=== PATIENT | male | born 1960 | race Hispanic/Latino ===

== ENCOUNTER 2017-09-26 17:08 | Emergency (ER) | payer OTHER ==
[2017-09-26] MEDS ORDERED: LIDOCAINE 1% W/EPI 1:100,000 MDV 50 ML VIAL ONE (18:08)
--- NOTE | 2017-09-26 19:22 | ER ---
Nurse's Notes [facility] Name: Dayton Grijalva Age: 56 yrs Sex: Male : 1960 Arrival Date: 09/26/2017 Time: 17:09 Bed 23 Private MD: Tito Duval E; Kovacev, Ted Diagnosis: Cutaneous abscess of right lower limb;Type 2 diabetes mellitus Presentation: 09/26 17:26 Presenting complaint: Patient states: Abscess on right thigh x 3 days. Transition of hb care: patient was not received from another setting of care. Onset of symptoms was September 26, 2017. Risk Assessment: Do you want to hurt yourself or someone else? Patient reports no desire to harm self or others. Initial Sepsis Screen: Does the patient meet any 2 criteria? No. Patient's initial sepsis screen is negative. Does the patient have a suspected source of infection? No. Patient's initial sepsis screen is negative. Care prior to arrival: None. 17:26 Method Of Arrival: Ambulatory hb 17:26 Acuity: SAMARA 4 hb Historical: - Allergies: 17:27 No Known Allergies; hb - Immunization history:: Adult Immunizations up to date. - Social history:: Smoking status: Patient/guardian denies using tobacco. - Ebola Screening: : No symptoms or risks identified at this time. - Family history:: not pertinent. Screenin:09 Abuse screen: Denies threats or abuse. Denies injuries from another. Nutritional kr2 screening: No deficits noted. Tuberculosis screening: No symptoms or risk factors identified. Fall Risk None identified. Assessment: 18:06 General: Appears in no apparent distress. comfortable, well groomed, well developed, kr2 well nourished, Behavior is calm, cooperative, appropriate for age. Pain: Complains of pain in right quadriceps Pain currently is 6 out of 10 on a pain scale. Quality of pain is described as aching, tender, Is continuous. Neuro: Level of Consciousness is awake, alert, obeys commands, Oriented to person, place, time, situation, Appropriate for age. Cardiovascular: Capillary refill < 3 seconds in bilateral Patient's skin is warm and dry. Respiratory: Airway is patent Respiratory effort is even, unlabored, Respiratory pattern is regular, symmetrical. GI: Patient currently denies nausea, vomiting. EENT: Oral mucosa is moist. Derm: Skin is intact, is healthy with good turgor, Skin is pink, warm \T\ dry. Abscess located on right quadriceps is half dollar sized, has purulent drainage, is red, is raised. Musculoskeletal: Circulation, motion, and sensation intact. 19:16 Reassessment: Patient appears in no apparent distress at this time. Patient and/or kr2 family updated on plan of care and expected duration. Pain level reassessed. Patient is alert, oriented x 3, equal unlabored respirations, skin warm/dry/pink. 20:00 Reassessment: Patient appears in no apparent distress at this time. Patient and/or kr2 family updated on plan of care and expected duration. Pain level reassessed. Patient is alert, oriented x 3, equal unlabored respirations, skin warm/dry/pink. Bactroban ointment applied to wound, covered with ABD pad and secured with tape. Patient tolerated well, family verbalizes understanding of care and to follow up with physician tomorrow Patient states feeling better. Vital Signs: 17:26 BP 148 / 90; Pulse 76; Resp 16; Temp 98.7; Pulse Ox 100% on R/A; Pain 6/10; hb 20:00 BP 148 / 88; Pulse 75; Resp 18; Pulse Ox 100% on R/A; kr2 ED Course: 13:40 Assist provider with I \T\ D: of an abscess on right upper thigh Set up I\T\D tray. kr 2 Performed by Dario Clinton MD Culture sent to lab. Wound packed. iodoform gauze, Dressing with bactroban, ABD pad and tape Patient tolerated well. 17:09 Patient arrived in ED. as 17:09 Tito Duval MD is Private Physician. as 17:09 Yfn Mandujano MD is Private Physician. as 17:26 Triage completed. hb 17:27 Arm band placed on left wrist. hb 17:32 Dario Clinton MD is Attending Physician. mary 17:35 Wound culture swab sent to lab. jp3 17:54 Nichole Molina, SUNITA is Primary Nurse. kr2 18:09 Patient has correct armband on for positive identification. Bed in low position. Call kr2 light in reach. Side rails up X 1. Adult w/ patient. Pulse ox on. NIBP on. 19:20 Yfn Mandujano MD is Referral Physician. mary 19:49 Wound Culture Sent. jp3 20:00 Patient did not have IV access during this emergency room visit. kr2 Administered Medications: 19:40 Drug: Lidocaine-Epinephrine -1%: (1:100,000) 20 ml {Note: Administered by Dr. estefani Clinton.} Volume: 20 ml; Route: Infiltration; 20:00 Follow up: Response: No adverse reaction kr2 19:58 Drug: Bactrim (160 mg-800 mg (DS) 1 tablet Route: PO; kr2 20:30 Follow up: Response: Medication administered at discharge. kr2 20:00 Drug: Doxycycline 200 mg Route: PO; kr2 20:31 Follow up: Response: Medication administered at discharge. kr2 20:00 Drug: Bactroban Ointment 2 % 1 application Route: Topical; Site: wound; kr2 20:00 Follow up: Response: Medication administered at discharge. kr2 Point of Care Testing: Blood Glucose: 17:58 Blood Glucose: 169 mg/dL; jp3 Ranges: Outcome: 19:21 Discharge ordered by . [facility] 20:08 Patient left the ED. kr2 20:28 Discharged to home ambulatory, with family. kr2 20:28 Condition: good 20:28 Discharge instructions given to patient, family, Instructed on discharge instructions, follow up and referral plans. medication usage, Demonstrated understanding of instructions, follow-up care, medications, Prescriptions given X 3. Signatures: Dario Clinton MD MD cha Martinez, Amelia as Baxter, Heather, RN RN Nichole Molina RN RN kr2 Daryl Reyez jp3 Corrections: (The following items were deleted from the chart) 18:16 18:06 Derm: Skin is intact, is healthy with good turgor, Skin is pink, warm \T\ dry. kr2 kr2
--- NOTE | 2017-09-26 19:22 | EDPHYS ---
Physician Documentation [facility] Name: Dayton Grijalva Age: 56 yrs Sex: Male : 1960 Arrival Date: 09/26/2017 Time: 17:09 Bed 23 Private MD: Tito Duval E; Kovacev, Ted ED Physician Dario Clinton HPI: 09/26 19:17 This 56 yrs old Male presents to ER via Ambulatory with complaints of Cyst. mary 19:17 The patient presents with an abscess, moderate-sized, an injury, pain, that is acute. mary The complaints affect the right quadriceps. Context: The problem was sustained at home. Onset: The symptoms/episode began/occurred 5 day(s) ago. Modifying factors: The symptoms are alleviated by nothing. the symptoms are aggravated by bending knee. Associated signs and symptoms: The patient has no apparent associated signs or symptoms. Treatment prior to arrival includes: no previous treatment. Severity of symptoms: At their worst the symptoms were mild, in the emergency department the symptoms are unchanged. The patient has experienced similar episodes in the past, a few times. Historical: - Allergies: 17:27 No Known Allergies; hb - Immunization history:: Adult Immunizations up to date. - Social history:: Smoking status: Patient/guardian denies using tobacco. - Ebola Screening: : No symptoms or risks identified at this time. - Family history:: not pertinent. ROS: 19:17 Constitutional: Negative for fever, chills, and weight loss, Eyes: Negative for injury, mary pain, redness, and discharge, ENT: Negative for injury, pain, and discharge, Neck: Negative for injury, pain, and swelling, Cardiovascular: Negative for chest pain, palpitations, and edema, Respiratory: Negative for shortness of breath, cough, wheezing, and pleuritic chest pain, Abdomen/GI: Negative for abdominal pain, nausea, vomiting, diarrhea, and constipation, Back: Negative for injury and pain, : Negative for injury, bleeding, discharge, and swelling, Neuro: Negative for headache, weakness, numbness, tingling, and seizure, Psych: Negative for depression, anxiety, suicide ideation, homicidal ideation, and hallucinations, Allergy/Immunology: Negative for hives, rash, and allergies, Endocrine: Negative for neck swelling, polydipsia, polyuria, polyphagia, and marked weight changes, Hematologic/Lymphatic: Negative for swollen nodes, abnormal bleeding, and unusual bruising. 19:17 MS/extremity: Positive for pain, swelling, tenderness, warmth, of the right quadriceps. Exam: 19:17 Constitutional: This is a well developed, well nourished patient who is awake, alert, mary and in no acute distress. Head/Face: Normocephalic, atraumatic. Eyes: Pupils equal round and reactive to light, extra-ocular motions intact. Lids and lashes normal. Conjunctiva and sclera are non-icteric and not injected. Cornea within normal limits. Periorbital areas with no swelling, redness, or edema. ENT: Nares patent. No nasal discharge, no septal abnormalities noted. Tympanic membranes are normal and external auditory canals are clear. Oropharynx with no redness, swelling, or masses, exudates, or evidence of obstruction, uvula midline. Mucous membranes moist. Neck: Trachea midline, no thyromegaly or masses palpated, and no cervical lymphadenopathy. Supple, full range of motion without nuchal rigidity, or vertebral point tenderness. No Meningismus. Chest/axilla: Normal chest wall appearance and motion. Nontender with no deformity. No lesions are appreciated. Cardiovascular: Regular rate and rhythm with a normal S1 and S2. No gallops, murmurs, or rubs. Normal PMI, no JVD. No pulse deficits. Respiratory: Lungs have equal breath sounds bilaterally, clear to auscultation and percussion. No rales, rhonchi or wheezes noted. No increased work of breathing, no retractions or nasal flaring. Abdomen/GI: Soft, non-tender, with normal bowel sounds. No distension or tympany. No guarding or rebound. No evidence of tenderness throughout. Back: No spinal tenderness. No costovertebral tenderness. Full range of motion. Male : Normal genitalia with no discharge or lesions. MS/ Extremity: Pulses equal, no cyanosis. Neurovascular intact. Full, normal range of motion. Neuro: Awake and alert, GCS 15, oriented to person, place, time, and situation. Cranial nerves II-XII grossly intact. Motor strength 5/5 in all extremities. Sensory grossly intact. Cerebellar exam normal. Normal gait. Psych: Awake, alert, with orientation to person, place and time. Behavior, mood, and affect are within normal limits. 19:17 Skin: abscess, that is moderate sized, cellulitis, that is mild, induration, that is moderate is noted, located on the right quadriceps. Vital Signs: 17:26 BP 148 / 90; Pulse 76; Resp 16; Temp 98.7; Pulse Ox 100% on R/A; Pain 6/10; hb 20:00 BP 148 / 88; Pulse 75; Resp 18; Pulse Ox 100% on R/A; kr2 Procedures: 19:17 I \T\ D: Incision and drainage was performed for an abscess of the right Prepped with [facility] Betadine, Anesthetized with 15 ml's 1% Lidocaine w/ Epi. Incised with #11 blade. Drained small amount Packed with iodoform gauze, Dressing: non-Adherent dressing, the patient tolerated the procedure well. MDM: 17:32 Patient medically screened. [facility] 19:17 Data reviewed: vital signs, nurses notes, lab test result(s). [facility] 09/26 17:48 Order name: Wound Culture [facility] 09/26 17:48 Order name: Wound Culture [facility] 09/26 17:48 Order name: Blood Glucose Level; Complete Time: 18:01 [facility] 09/26 17:48 Order name: Dressing - Wound; Complete Time: 20:32 [facility] 09/26 17:48 Order name: Gloves, Sterile; Complete Time: 18:10 [facility] 09/26 17:48 Order name: Setup Suture Tray; Complete Time: 18:10 [facility] Administered Medications: 19:40 Drug: Lidocaine-Epinephrine -1%: (1:100,000) 20 ml {Note: Administered by Dr. estefani Clinton.} Volume: 20 ml; Route: Infiltration; 20:00 Follow up: Response: No adverse reaction kr2 19:58 Drug: Bactrim (160 mg-800 mg (DS) 1 tablet Route: PO; kr2 20:30 Follow up: Response: Medication administered at discharge. kr2 20:00 Drug: Doxycycline 200 mg Route: PO; kr2 20:31 Follow up: Response: Medication administered at discharge. kr2 20:00 Drug: Bactroban Ointment 2 % 1 application Route: Topical; Site: wound; kr2 20:00 Follow up: Response: Medication administered at discharge. kr2 Point of Care Testing: Blood Glucose: 17:58 Blood Glucose: 169 mg/dL; jp3 Ranges: Critical Glucose Levels:Adult <50 mg/dl or >400 mg/dl <40 mg/dl or >180 mg/dl Disposition: 09/26/17 19:21 Discharged to Home. Impression: Cutaneous abscess of right lower limb, Type 2 diabetes mellitus. - Condition is Stable. - Discharge Instructions: Skin Abscess, Type 2 Diabetes Mellitus, Diagnosis, Adult, Incision and Drainage, Skin Abscess, [id number], Type 2 Diabetes Mellitus, Diagnosis, Adult, [id number], Incision and Drainage, Care After. - Prescriptions for Bactroban 2 % Topical Ointment - Apply to affected area 1 application by TOPICAL route every 12 hours; 30 gram. Tylenol- Codeine #3 300-30 mg Oral Tablet - take 2 tablet by ORAL route every 6 hours As needed; 30 tablet. Doxycycline Hyclate 100 mg Oral Tablet - take 1 tablet by ORAL route every 12 hours; 20 tablet. Bactrim DS 800- 160 mg Oral Tablet - take 1 tablet by ORAL route every 12 hours for 10 days; 20 tablet. - Medication Reconciliation Form, Thank You Letter, Antibiotic Education, Prescription Opioid Use form. - Follow up: Yfn Mandujano MD; When: Tomorrow; Reason: Recheck today's complaints, Continuance of care, Re-evaluation by your physician. - Problem is new. - Symptoms have improved. Signatures: Dispatcher [employer] EDDario Jacobs MD MD cha Baxter, Heather, SUNITA RN Nichole Balderas RN RN kr2 Corrections: (The following items were deleted from the chart) 20:08 19:21 09/26/2017 19:21 Discharged to Home. Impression: Cutaneous abscess of right lower kr2 limb; Type 2 diabetes mellitus. Condition is Stable. Forms are Medication Reconciliation Form, Thank You Letter, Antibiotic Education, Prescription Opioid Use. Follow up: Yfn Mandujano; When: Tomorrow; Reason: Recheck today's complaints, Continuance of care, Re-evaluation by your physician. Problem is new. Symptoms have improved. mary
[2017-09-26] MEDS ORDERED: SMZ./TMP. 800/160 MG TABLET ONE (19:23)
[2017-09-26] MEDS ORDERED: DOXYCYCLINE 100 MG CAP PO ONE (19:23)
[2017-09-26] MEDS ORDERED: MUPIROCIN 2% OINT 22GM TUBE TOP ONE (19:53)
[2017-09-26 20:56] VITALS: BP 148/90; TEMP 98.7; O2SAT 100
== END 2017-09-26 20:08 | disposition home or self-care (01) ==
LOC: ER 17:08
PROC: 0H9KXZZ Drainage of Right Lower Leg Skin, External Approach (ICD-10-PCS; principal; 2017-09-26)
DX: L02.415 Cutaneous abscess of right lower limb (principal); E11.9 Type 2 diabetes mellitus without complications
CPT/HCPCS: 82962; 87070; 87077; 87186; 87205; 99284

== ENCOUNTER 2018-02-27 03:26 | Inpatient (IN) | payer OTHER ==
[2018-02-27] MEDS ORDERED: NA CHLORIDE 0.9% 1,000 ML ONE (04:26)
[2018-02-27 04:27] LABS: Protime INR 1.1
[2018-02-27 04:30] LABS: Absolute Monocytes 0.9 K/uL (0.1-1.3); Absolute Neutrophil 7.1 K/uL (1.8-8.0); Basophils % 1.3 % (0-1.3); Hematocrit 44.2 % (39.6-49.0); Lymphocytes % 10.2 % (15.3-44.8); Monocytes % 9.5 % (3.3-12.3); RBC Red Blood Cell Count 5.31 M/uL (4.33-5.43)
[2018-02-27 04:47] LABS: ALT/SGPT 23 U/L (12-78); AST/SGOT 16 U/L (15-37); Albumin 2.5 g/dL (3.4-5.0); Alkaline Phosphatase 139 U/L (45-117); BUN Blood Urea Nitrogen 82 mg/dL (7-18); Bicarbonate 17 mmol/L (21-32); Bilirubin Direct < 0.1 mg/dL (0-0.2); Bilirubin Total 0.4 mg/dL (0.2-1.0); Glucose Level 104 mg/dL (74-106); Magnesium 1.9 mg/dL (1.8-2.4); NT PRO-BNP 15196 pg/mL (<125); Potassium 3.3 mmol/L (3.5-5.1); Protein, Total 7.1 g/dL (6.4-8.2); Sodium Level 137 mmol/L (136-145); Troponin (Emerg Dept Use Only) 0.03 ng/mL (0.0-0.045)
--- NOTE | 2018-02-27 06:00 | ER ---
Nurse's Notes [facility] Name: Dayton Grijalva Age: 57 yrs Sex: Male : 1960 Arrival Date: 02/27/2018 Time: 03:27 Bed 5 Private MD: Tito Duval E Diagnosis: Generalized weakness. Acute on chronic renal failure Presentation: 02/27 03:41 Presenting complaint: Child states: "we found him on the floor in the bathroom after jd3 falling off of the toilet. he says he didn't pass out, he is just very nauseous and feels like he needs to throw up. He said he did hurt anything when falling off of the toilet, he just feels like he needs to throw up. he says he has been feeling like this for a couple of days.". Transition of care: patient was not received from another setting of care. Onset of symptoms was February 25, 2018. Risk Assessment: Do you want to hurt yourself or someone else? Patient reports no desire to harm self or others. Initial Sepsis Screen: Does the patient meet any 2 criteria? No. Patient's initial sepsis screen is negative. Does the patient have a suspected source of infection? No. Patient's initial sepsis screen is negative. Care prior to arrival: None. 03:41 Method Of Arrival: Wheelchair jd3 03:41 Acuity: SAMARA 3 jd3 Historical: - Allergies: 03:49 No Known Allergies; jd3 - Home Meds: 03:49 glipizide 10 mg Oral tab 1 tab 2 times per day [Active]; spironolactone 25 mg Oral tab jd3 1 tab once daily [Active]; amlodipine 10 mg tab 1 tab once daily [Active]; gabapentin 300 mg oral cap 1 cap daily [Active]; carvedilol 12.5 mg oral tab 1 tab 2 times per day [Active]; furosemide 40 mg Oral tab 1 tab once daily [Active]; hydralazine 25 mg Oral tab 1 tab 2 times per day [Active]; - PMHx: 03:49 Diabetes - IDDM; Hypertension; jd3 - PSHx: 03:49 left foot sx; jd3 - Immunization history:: Adult Immunizations up to date. - Social history:: Smoking status: Patient/guardian denies using tobacco. - Ebola Screening: : Patient negative for fever greater than or equal to 101.5 degrees Fahrenheit, and additional compatible Ebola Virus Disease symptoms. Screenin:51 Abuse screen: Denies threats or abuse. Nutritional screening: No deficits noted. jd3 Tuberculosis screening: No symptoms or risk factors identified. Fall Risk Ambulatory Aid- Crutches/Cane/Walker (15 pts). Gait- Weak (10 pts.). Mental Status- Oriented to own ability (0 pts). Total Masters Fall Scale indicates Low Risk Score (25-44 pts). Fall prevention measures have been instituted. Side Rails Up X 2 Placed close to Nursing Station Frequent Obs/Assesments occuring Family Present and informed to notify staff if they need to leave bedside. Assessment: 03:50 General: Appears in no apparent distress. uncomfortable, Behavior is calm, cooperative, jd3 appropriate for age. Pain: Denies pain. Neuro: Level of Consciousness is awake, alert, obeys commands, Oriented to person, place, time, situation, Appropriate for age. Cardiovascular: Capillary refill < 3 seconds Patient's skin is warm and dry. Respiratory: Airway is patent Respiratory effort is even, unlabored, Respiratory pattern is regular, symmetrical. GI: Abdomen is round non-distended, Bowel sounds present X 4 quads. Abd is soft and non tender X 4 quads. Reports nausea, vomiting, Patient currently denies constipation, diarrhea. : No signs and/or symptoms were reported regarding the genitourinary system. EENT: No signs and/or symptoms were reported regarding the EENT system. Derm: Skin is intact, Skin is dry, Skin is normal, Skin temperature is warm. Musculoskeletal: Circulation, motion, and sensation intact. Range of motion: intact in all extremities. 05:30 Reassessment: Patient appears in no apparent distress at this time. Patient and/or jd3 family updated on plan of care and expected duration. Pain level reassessed. Patient is alert, oriented x 3, equal unlabored respirations, skin warm/dry/pink. 06:23 Reassessment: Patient appears in no apparent distress at this time. Patient and/or jd3 family updated on plan of care and expected duration. Pain level reassessed. Patient is alert, oriented x 3, equal unlabored respirations, skin warm/dry/pink. 07:52 Reassessment: Patient appears in no apparent distress at this time. Patient and/or ph family updated on plan of care and expected duration. Pain level reassessed. Patient is alert, oriented x 3, equal unlabored respirations, skin warm/dry/pink. Pt resting quietly with eyes closed, even unlabored respirations, family at bedside, attempted to magdaleno report to ICU, receiving nurse unavailable. 09:02 Reassessment: Patient appears in no apparent distress at this time. No changes from ph previously documented assessment. Report called to SUNITA Wise in ICU, preparing pt to be taken upstairs. Vital Signs: 03:49 BP 180 / 98; Pulse 73; Resp 18 S; Temp 97.7(O); Pulse Ox 99% on R/A; Weight 113.4 kg jd3 (R); Height 6 ft. 0 in. (182.88 cm) (R); Pain 0/10; 05:30 BP 162 / 85; Pulse 75; Resp 18 S; Pulse Ox 99% on R/A; jd3 06:23 BP 161 / 89; Pulse 78; Resp 18 S; Pulse Ox 100% on R/A; jd3 07:31 BP 182 / 93; Pulse 73; Resp 18; Pulse Ox 98% on R/A; ph 03:49 Body Mass Index 33.91 (113.40 kg, 182.88 cm) jd3 ED Course: 03:27 Patient arrived in ED. am2 03:27 Tito Duval MD is Private Physician. am2 03:32 Clay Dean MD is Attending Physician. pkl 03:40 Sulaiman Mcintyre RN is Primary Nurse. jd3 03:44 Triage completed. jd3 03:49 Arm band placed on. jd3 03:51 Patient has correct armband on for positive identification. Bed in low position. Call j light in reach. Side rails up X 1. Adult w/ patient. 04:27 X-ray completed. Portable x-ray completed in exam room. Patient tolerated procedure kw well. 04:27 XRAY Chest (1 view) In Process Unspecified. EDMS 04:42 CT Head Brain wo Cont In Process Unspecified. EDMS 04:48 Notified ED physician of a critical lab result(s). creat 11.80, calcium of 5.7. fc 05:58 Josh Hall MD is Hospitalizing Provider. pkl Administered Medications: 04:20 Drug: NS 0.9% 1000 ml Route: IV; Rate: 125 ml/hr; Site: right antecubital; jd3 06:28 Follow up: Response: No adverse reaction; IV Status: Infusion continued upon admission jd3 Outcome: 06:00 Decision to Hospitalize by Provider. pkl 09:17 Patient left the ED. ss Signatures: Dispatcher [employer] EDNY Clay Dean MD MD pkl Jaqueline Morris, RN RN Alix Lopez RN RN ss Blessing Page Patricia, RN RN Rachel Gary Jonathon, RN RN jd3
--- NOTE | 2018-02-27 06:01 | EDPHYS ---
Physician Documentation [facility] Name: Dayton Grijalva Age: 57 yrs Sex: Male : 1960 Arrival Date: 02/27/2018 Time: 03:27 Bed 5 Private MD: Tito Duval E ED Physician Clay Dean HPI: 02/27 04:03 This 57 yrs old Male presents to ER via Wheelchair with complaints of Fall pkl Injury. 04:04 Patient said he has been feeling weak for about 4 days. Tonight family members found on pkl the floor . Patient was diaphoretic. Denies any injuries or pain anywhere.. Onset: The symptoms/episode began/occurred just prior to arrival, 1 hour(s) ago. Historical: - Allergies: 03:49 No Known Allergies; jd3 - Home Meds: 03:49 glipizide 10 mg Oral tab 1 tab 2 times per day [Active]; spironolactone 25 mg Oral tab jd3 1 tab once daily [Active]; amlodipine 10 mg tab 1 tab once daily [Active]; gabapentin 300 mg oral cap 1 cap daily [Active]; carvedilol 12.5 mg oral tab 1 tab 2 times per day [Active]; furosemide 40 mg Oral tab 1 tab once daily [Active]; hydralazine 25 mg Oral tab 1 tab 2 times per day [Active]; - PMHx: 03:49 Diabetes - IDDM; Hypertension; jd3 - PSHx: 03:49 left foot sx; jd3 - Immunization history:: Adult Immunizations up to date. - Social history:: Smoking status: Patient/guardian denies using tobacco. - Ebola Screening: : Patient negative for fever greater than or equal to 101.5 degrees Fahrenheit, and additional compatible Ebola Virus Disease symptoms. ROS: 04:04 Eyes: Negative for injury, pain, redness, and discharge, ENT: Negative for injury, pkl pain, and discharge, Neck: Negative for injury, pain, and swelling, Cardiovascular: Negative for chest pain, palpitations, and edema, Respiratory: Negative for shortness of breath, cough, wheezing, and pleuritic chest pain, Abdomen/GI: Negative for abdominal pain, nausea, vomiting, diarrhea, and constipation, Back: Negative for injury and pain, : Negative for injury, bleeding, discharge, and swelling, MS/Extremity: Negative for injury and deformity. 04:04 Skin: Positive for diaphoresis. 04:04 Neuro: Positive for weakness, Negative for altered mental status, loss of consciousness. Exam: 04:04 Head/Face: Normocephalic, atraumatic. pkl 04:04 Eyes: Patient is blind in left eye. 04:04 ENT: Exam is negative for acute changes. 04:04 Neck: Exam negative for nuchal rigidity. 04:04 Chest/axilla: Exam negative for acute changes. 04:04 Cardiovascular: Rate: normal, Rhythm: regular. 04:04 Respiratory: the patient does not display signs of respiratory distress, Respirations: normal, Breath sounds: are clear throughout. 04:04 Abdomen/GI: Bowel sounds: normal, Palpation: abdomen is soft and non-tender, in all quadrants. 04:04 Back: Exam negative for acute changes. 04:04 : Exam negative for acute changes. 04:04 Musculoskeletal/extremity: Exam is negative for acute changes. 04:04 Skin: Exam negative for rash. 04:04 Neuro: Orientation: appropriate for stated age, Mentation: appropriate for stated age, Memory: is normal, Cranial nerves: grossly normal, Cerebellar function: normal finger to nose testing, heel to ordaz testing is normal, Motor: is normal. Vital Signs: 03:49 BP 180 / 98; Pulse 73; Resp 18 S; Temp 97.7(O); Pulse Ox 99% on R/A; Weight 113.4 kg jd3 (R); Height 6 ft. 0 in. (182.88 cm) (R); Pain 0/10; 05:30 BP 162 / 85; Pulse 75; Resp 18 S; Pulse Ox 99% on R/A; jd3 06:23 BP 161 / 89; Pulse 78; Resp 18 S; Pulse Ox 100% on R/A; jd3 07:31 BP 182 / 93; Pulse 73; Resp 18; Pulse Ox 98% on R/A; ph 03:49 Body Mass Index 33.91 (113.40 kg, 182.88 cm) jd3 MDM: 03:33 Patient medically screened. pkl 05:18 Data reviewed: vital signs, nurses notes, lab test result(s), EKG, radiologic studies, pkl CT scan, plain films. 02/27 04:02 Order name: Basic Metabolic Panel; Complete Time: 05:18 pkl 02/27 04:02 Order name: CBC with Diff; Complete Time: 05:18 pkl 02/27 04:02 Order name: LFT's; Complete Time: 05:18 pkl 02/27 04:02 Order name: Magnesium; Complete Time: 05:18 pkl 02/27 04:02 Order name: NT PRO-BNP; Complete Time: 05:18 pkl 02/27 04:02 Order name: PT-INR; Complete Time: 05:18 pkl 02/27 04:02 Order name: Troponin (emerg Dept Use Only); Complete Time: 05:18 pkl 02/27 04:02 Order name: XRAY Chest (1 view); Complete Time: 19:03 pkl 02/27 04:02 Order name: EKG; Complete Time: 04:04 pkl 02/27 04:02 Order name: Cardiac monitoring; Complete Time: 04:55 pkl 02/27 04:03 Order name: CT Head Brain wo Cont; Complete Time: 19:03 pkl 02/27 06:02 Order name: ABG Arterial Blood Gas; Complete Time: 19:03 EDMS 02/27 04:02 Order name: EKG - Nurse/Tech; Complete Time: 04:26 pkl 02/27 04:02 Order name: IV Saline Lock; Complete Time: 04:14 pkl 02/27 04:02 Order name: Labs collected and sent; Complete Time: 04:14 pkl 02/27 04:02 Order name: O2 Per Protocol; Complete Time: 04:15 pkl 02/27 04:02 Order name: O2 Sat Monitoring; Complete Time: 04:15 pkl Administered Medications: 04:20 Drug: NS 0.9% 1000 ml Route: IV; Rate: 125 ml/hr; Site: right antecubital; jd3 06:28 Follow up: Response: No adverse reaction; IV Status: Infusion continued upon admission jd3 Disposition: 02/27/18 06:00 Hospitalization ordered by Josh Hall for Inpatient Admission. Preliminary diagnosis is Generalized weakness. Acute on chronic renal failure. - Bed requested for Intensive Care Unit. - Status is Inpatient Admission. ss - Condition is Stable. - Problem is new. - Symptoms are unchanged. UTI on Admission? No Signatures: Dispatcher [employer] EDClay Hooker MD MD pkl Alix Lopez RN RN ss Joya Mera RN RN cg Sulaiman Mcintyre, SUNITA RN jd3 Corrections: (The following items were deleted from the chart) 04:05 04:03 HEMOGLOBIN A1C+CHEM A1C.LAB.BRZ ordered. EDPA EDMS 06:25 06:00 Hospitalization Ordered by Josh Hall MD for Inpatient Admission. Preliminary cg diagnosis is Generalized weakness. Acute on chronic renal failure. Bed requested for Intensive Care Unit. Status is Inpatient Admission. Condition is Stable. Problem is new. Symptoms are unchanged. UTI on Admission? No. pkl 09:17 06:25 02/27/2018 06:00 Hospitalization Ordered by Josh Hall MD for Inpatient ss Admission. Preliminary diagnosis is Generalized weakness. Acute on chronic renal failure. Bed requested for Intensive Care Unit. Status is Inpatient Admission. Condition is Stable. Problem is new. Symptoms are unchanged. UTI on Admission? No. cg
--- NOTE | 2018-02-27 06:13 | P.HP ---
Certification for Inpatient Patient admitted to: Inpatient With expected LOS: >2 Midnights Practitioner: I am a practitioner with admitting privileges, knowledge of patient current condition, hospital course, and medical plan of care. Services: Services provided to patient in accordance with Admission requirements found in Title 42 Section 412.3 of the Code of Federal Regulations Patient History Date of Service: 02/27/18 Reason for admission: acute on chronic renal failure History of Present Illness: Mr Grijalva is a 57 years old male with history of HTN, CKD with baseline creatinine around 4.0, DM II, who start feeling bad about 5 days ago. He was complaining of generalized abdominal pain and progressive weakness. Lately he has had significant nausea. The patient was found last night on the floor by his family members. He states that did not fall, just was not feeling well. Denied fever, chills, chest pain, diarrhea or SOB. He said that has been making less urine than usual lately. At arrival his BP was 180/98, O2 sat 99% on RA. Lab work shows normal WBC count, significant worsening creatinine level 11.8, BUN 82, elevated proBNP. Allergies No Known Allergies Allergy (Unverified 11/26/16 01:29) Home Medications: Glipizide [Glucotrol Xl] 1 tab PO BID 02/08/13 Furosemide 1 tab PO BEDTIME 06/25/16 Gabapentin [Gralise] 300 mg PO DAILY 06/25/16 Amlodipine [Norvasc*] 10 mg PO DAILY 07/08/16 Hydralazine [Apresoline*] 25 mg PO DAILY 07/08/16 Spironolactone [Aldactone*] 12.5 mg PO DAILY 07/08/16 Calcitriol [Rocaltrol] 0.5 mcg PO DAILY 11/26/16 Carvedilol 12.5 mg PO BID 11/26/16 Furosemide 40 mg PO DAILY 11/26/16 Insulin Glargine,Hum.rec.anlog [Toujeo Solostar] 5 unit SQ DAILY 11/26/16 Insulin Glargine,Hum.rec.anlog [Toujeo Solostar] 10 unit SQ BEDTIME 11/26/16 Amox/Clavulanate [Augmentin 500-125 mg Tab*] 500 mg PO BID #30 tab 12/02/16 - Past Medical/Surgical History Diabetic: Yes -: HTN -: Non insulin dependent DM -: Neuropathy -: Chronic kidney disease -: Transmet amputation left foot 2009 -: Back I&D 2016 - Family History Father -: Diabetes Mother -: GI disease Notes: Patient states that mother is in the hospital with a unknow GI problem - Social History Smoking Status: Never smoker Alcohol use: No CD- Drugs: No Caffeine use: Yes Place of Residence: Home Review of Systems 10-point ROS is otherwise unremarkable Physical Examination - Physical Exam General: Alert, In no apparent distress HEENT: Atraumatic, PERRLA, Mucous membr. moist/pink, EOMI, Sclerae nonicteric Neck: Supple, 2+ carotid pulse no bruit, No LAD, Without JVD or thyroid abnormality Respiratory: Normal air movement, Crackles/rales (bibasilar rales) Cardiovascular: Normal S1 S2, No gallops Gastrointestinal: Normal bowel sounds, No tenderness Musculoskeletal: No tenderness, Swelling (LE extremity edema 1+ bilateral) Integumentary: No rashes Neurological: Normal speech, Normal strength at 5/5 x4 extr, Normal tone, Normal affect Lymphatics: No axilla or inguinal lymphadenopathy - Studies Laboratory Data (last 24 hrs) 02/27/18 04:10: PT 13.0 H, INR 1.10 02/27/18 04:10: WBC 9.6, Hgb 15.4, Hct 44.2, Plt Count 225 02/27/18 04:10: Sodium 137, Potassium 3.3 L, BUN 82 H, Creatinine 11.80 H*, Glucose 104, Magnesium 1.9, Total Bilirubin 0.4, AST 16, ALT 23, Alkaline Phosphatase 139 H Assessment and Plan - Problems (Diagnosis) (1) Acute on chronic kidney failure Current Visit: Yes Status: Acute Qualifiers: Acute renal failure type: unspecified Chronic kidney disease stage: stage 5 , not on chronic dialysis Qualified Code(s): N17.9 - Acute kidney failure, unspecified; N18.5 - Chronic kidney disease, stage 5 (2) Diabetes mellitus type 2 Onset Date: 11/26/16 Current Visit: No Status: Chronic (3) Essential hypertension Onset Date: 11/26/16 Current Visit: No Status: Chronic - Plan The patient will be admitted to the hospital due to acute on chronic renal failure. Potassium level is actually low, calcium level is low, will replace it , will check ABG to evaluate acidobase status, tray IV lasix, consult clinical counselor. He most likely will need HD. - Advance Directives Does patient have a Living Will: No Does patient have a Durable POA for Healthcare: No - Code Status/Comfort Care Code Status Assessed: Yes Code Status: Full Code
[2018-02-27 06:39] LABS: Arterial Blood Carboxyhemoglob 0.6 % (0-1.5); Blood Gas Oxyhemoglobin 95.9 % (94-97); Blood O2 Saturation 97.6 % (92-98.5)
[2018-02-27] MEDS ORDERED: CALCIUM GLUC 10% INJ 4.65 MEQ in NA CHLORIDE 0.9% 100 ML IV ONE (06:48)
--- NOTE | 2018-02-27 07:54 | EKG ---
Test Date: 2018-02-27 Test Time: 04:19:35 Pals Nurse: JOSE DE JESUS MEASUREMENT RESULTS: Intervals: Rate: 76 UT: 134 QRSD: 84 QT: 460 QTc: 517 [place]: P: 49 UT: 134 QRS: -13 T: 45 INTERPRETIVE STATEMENTS: Normal sinus rhythm Inferior infarct, age undetermined Prolonged QT Abnormal ECG Compared to ECG 06/25/2016 13:38:21 Myocardial infarct finding now present Prolonged QT interval now present Atrial premature complex(es) no longer present Electronically Signed On 02-27-18 07:53:45 CARTON REPAIRER by Eliot Aldridge
--- NOTE | 2018-02-27 08:27 | RAD REPORT ---
EXAM DESCRIPTION: RAD - Chest Single View - 02/27/2018 4:44 am CLINICAL HISTORY: Weakness, shortness of breath COMPARISON: November 2016 TECHNIQUE: AP portable chest image was obtained 0415 hours . FINDINGS: Lungs are clear. Heart and vasculature are normal. No measurable pleural effusion and no p neumothorax. No acute bony abnormality seen. No acute aortic findings suspected. IMPRESSION: No acute cardiopulmonary process. No significant change from comparison.
[2018-02-27] MEDS ORDERED: ONDANSETRON 4 MG/2 ML VIAL IV PRN (08:40)
[2018-02-27] MEDS ORDERED: ACETAMINOPHEN 500 MG TAB PO PRN (08:40)
[2018-02-27] MEDS: INSULIN -REGULAR HUMAN 50 UNIT/0.5 ML ML SQ SCH ×4 (08:40→21:00)
[2018-02-27] MEDS ORDERED: FUROSEMIDE 40 MG/4 ML VIAL IV SCH (09:00)
--- NOTE | 2018-02-27 09:27 | RAD REPORT ---
EXAM DESCRIPTION: CT - Head Brain Wo Cont - 02/27/2018 6:47 am CLINICAL HISTORY: Fall, head and neck injury A preliminary report was provided at the time of the study and reviewed prior to final report. COMPARISON: CT head imaging from July and November 2013 TECHNIQUE: Axial 5 mm thick images of the head were obtained without IV contrast. All CT scans are performed using dose optimization technique as appropriate and may include automated exposure control or mA/KV adjustment according to patient size. FINDINGS: No intracranial hemorrhage, mass, edema or shift of mid-line structures. No cortical edema or sulcal effacement. No cortical based infarction seen. Atrophy and chronic ischemic changes are pr esent greater than typically seen at this age. Small lacunar infarction is present in the anterior le ft thalamus. There is prominent CSF attenuation at the left CP angle not clearly different back to 20 14. This is probably the affects of underlying atrophy and asymmetry created by head tilt. CSF attenu ation mass on likely. No progressive finding at this region. Patient has tortuous and densely calcifi ed aortoiliac vasculature in this region. Old brainstem lacune or infarction in the jorge luis. Ventricles are in proportion to the volume loss. Mastoid air cells and visualized portions of the paranasal sinuses are clear. No acute bony findings. IMPRESSION: No hemorrhage, edema or acute intracranial finding. Atrophy and chronic ischemic changes are present greater than typically seen for this age. The intr acranial findings detailed in this report are stable back to 2013.
--- NOTE | 2018-02-27 10:20 | P.CNS ---
Date of Consult: 02/27/18 Reason for Consult: CKD Chief Complaint: acute on chronic renal failure History of Present Illness: hx obtained with help of son at bedside , as pt was unable to provide detailed Hx A 57-year-old man legaly blind, with PMhx of DM with retinopathy, HTN PVD and CKD Pt presented after fall in the bathroom pt had poor appetite and activity for the last week , fell yesterday with no trauma or LOC in ER Cr 11, was ~4.5 in July with eGFR of 14 no chest pain, palpitation, nausea, vomiting or diarrhea Allergies No Known Allergies Allergy (Unverified 11/26/16 01:29) Home Medications: Glipizide [Glucotrol Xl] 1 tab PO BID 02/08/13 Furosemide 1 tab PO BEDTIME 06/25/16 Gabapentin [Gralise] 300 mg PO DAILY 06/25/16 Amlodipine [Norvasc*] 10 mg PO DAILY 07/08/16 Hydralazine [Apresoline*] 25 mg PO DAILY 07/08/16 Spironolactone [Aldactone*] 12.5 mg PO DAILY 07/08/16 Calcitriol [Rocaltrol] 0.5 mcg PO DAILY 11/26/16 Carvedilol 12.5 mg PO BID 11/26/16 Furosemide 40 mg PO DAILY 11/26/16 Insulin Glargine,Hum.rec.anlog [Toujeo Solostar] 5 unit SQ DAILY 11/26/16 Insulin Glargine,Hum.rec.anlog [Toujeo Solostar] 10 unit SQ BEDTIME 11/26/16 Amox/Clavulanate [Augmentin 500-125 mg Tab*] 500 mg PO BID #30 tab 12/02/16 - Past Medical/Surgical History Diabetic: Yes -: HTN -: Non insulin dependent DM -: Neuropathy -: Chronic kidney disease -: Transmet amputation left foot 2009 -: Back I&D 2016 - Family History Father Medical History: Diabetes Mother Medical History: GI disease Notes: Patient states that mother is in the hospital with a unknow GI problem - Social History Smoking Status: Never smoker Alcohol use: No CD- Drugs: No Caffeine use: Yes Place of Residence: Home Physical Examination Temp Pulse Resp BP Pulse Ox 97.7 F 78 19 195/98 H 100 02/27/18 03:49 02/27/18 10:00 02/27/18 10:00 02/27/18 10:00 02/27/18 10:00 General: Alert Neck: Supple, Without JVD or thyroid abnormality Respiratory: Clear to auscultation bilaterally, Normal air movement Cardiovascular: No edema, Regular rate/rhythm, Normal S1 S2 Gastrointestinal: Normal bowel sounds, Soft and benign Laboratory Data (last 24 hrs) 02/27/18 04:10: PT 13.0 H, INR 1.10 02/27/18 04:10: WBC 9.6, Hgb 15.4, Hct 44.2, Plt Count 225 02/27/18 04:10: Sodium 137, Potassium 3.3 L, BUN 82 H, Creatinine 11.80 H*, Glucose 104, Magnesium 1.9, Total Bilirubin 0.4, AST 16, ALT 23, Alkaline Phosphatase 139 H - Problems (1) ESRD (end stage renal disease) Current Visit: Yes Status: Chronic (2) Type II diabetes mellitus with ulcer Onset Date: 02/08/13 Current Visit: No Status: Chronic (3) Obesity (BMI 30.0-34.9) Current Visit: No Status: Chronic (4) Essential hypertension Onset Date: 11/26/16 Current Visit: No Status: Chronic Conclusions/Impression: hx obtained with help of son at bedside , as pt was unable to provide detailed Hx A 57-year-old man legaly blind, with PMhx of DM with retinopathy, HTN PVD and CKD Pt presented after fall in the bathroom pt had poor appetite and activity for the last week , fell yesterday with no trauma or LOC in ER Cr 11, was ~4.5 in July with eGFR of 14 no chest pain, palpitation, nausea, vomiting or diarrhea ESRD will need to initiate on HD temp cath placement today , and then will switch to permenant REnal diet renal dose meds Uremic symptoms HD today HTN will start on Lisniopril and Norvasc DM as per primary MBD will send for PTh and Phos
[2018-02-27] MEDS ORDERED: D50W 25 GM/50 ML SYRINGE IV PRN (10:45)
[2018-02-27] MEDS ORDERED: PNEUMOCOCCAL VACCINE 0.5 ML IMVAC ONE (12:00)
--- NOTE | 2018-02-27 12:24 | P.OP ---
Preoperative diagnosis: Acute on Chronic Renal Failure Postoperative diagnosis: Acute on Chronic Renal Failure Primary procedure: Placement of Temporary Right Femoral Hemodialysis Catheter Secondary procedure: Ultrasound guidance and micro introducer used Anesthesia: 1% lidocaine Estimated blood loss: <5cc Specimen: None Findings: Dark, Non-pulsatile blood returned Complications: None Implants: Non-tunnelled hemodialysis catheter Transferred to: ICU Condition: Serious
--- NOTE | 2018-02-27 12:52 | CON ---
Date of Consultation: 02/27/2018 Reason For Consultation: Placement of a hemodialysis catheter with acute on renal kidney failure. Brief History Of Present Illness: The patient is a 57-year-old, male, known to me from prev ious surgery with a history of hypertension, CKD with baseline creatinine around 4 as well as diabete s, who started feeling bad approximately 5 to 6 days ago. He had generalized abdominal pain, progres sive weakness, and he ultimately had nausea, vomiting, and was found down on the floor by family memb ers. He did not fall. He just did not feel well and as such slumped over. He denies fever, chills, chest pain, or other complaints. He was brought to the hospital and found to be somewhat lethargic and was therefore placed in the ICU for further workup. Workup continued to show worsening renal adrian lure. As such, the patient will require dialysis, a temporary hemodialysis catheter was requested at this point. However, the patient will possibly need a permanent fistula/tunneled hemodialysis che ter as an outpatient. Past Medical History: Significant for hypertension, diabetes, neuropathy, chronic kidney disease. Past Surgical History: I and D of his back multiple times and necrotizing fasciitis, transmetatarsal amputation of left foot. Allergies: NO KNOWN DRUG ALLERGIES. Medications: Include glipizide, Lasix, gabapentin, amlodipine, hydralazine, spironolactone, calcitri ol, carvedilol, insulin, and Augmentin. Family History: Father had diabetes. Mother had GI disease. Social History: He denies smoking, alcohol, or recreational drug use. Review of Systems: A 10-point review of systems other than HPI, denies. Physical Examination: General: At the time of my examination, he is awake, somewhat lethargic, but conversive. HEENT: Normocephalic, otherwise sclerae anicteric. Mucous is moist. Oropharynx clear. Neck: Supple. No JVD. Chest: Normal expansion and excursion. Cardiovascular: Regular rate and rhythm. Pulmonary: Clear to auscultation bilaterally. Abdomen: Soft. Extremities: No clubbing, cyanosis, or edema. Laboratory Data: Reveals a white blood cell count of 9.6, hemoglobin is 15.4, hematocrit 44.2, plate let count is 225. His coags show PT 13.0 and INR 1.10. His chemistry showed sodium 137, potassium 3 .3, chloride 104, carbon dioxide 17, BUN 82, creatinine 11.8. His estimated GFR is 4. Glucose 104, calcium 5.7, magnesium 1.9, total bilirubin 0.4. AST 16, ALT 23, alkaline phosphatase 139. ProBNP i s 15,196. He had a head CT as well as chest x-ray performed. The head CT was officially read as no hemorrhage, edema, or acute intracranial finding. Atrophy and chronic ischemic changes are present g reater than typically seen for this age. Intracranial findings detailed in the report are stable sin ce 2013. Chest x-ray performed also was officially read as no acute cardiopulmonary process. No sig nificant change from comparison. Assessment And Plan: This is a 57-year-old male, who comes in with acute on chronic renal failure an d multiple medical problems. 1.Continue medical management. 2.I have explained risks, benefits, and alternatives of placement of temporary untunneled hemodialys is catheter including but not limited to bleeding, infection, damage to surrounding tissue, need for further operative procedure. The patient agrees to proceed as indicated. Thank you for this interesting consult. IVÁN/JORGE Voice ID: [id number] Report ID: [id number]
--- NOTE | 2018-02-27 13:13 | OP ---
Date of Procedure: 02/27/2018 Surgeon: Yfn Mandujano MD, Preoperative Diagnosis: Acute on chronic renal failure. Postoperative Diagnosis: Acute on chronic renal failure. Procedures Performed: 1.Placement of a temporary right femoral hemodialysis catheter. 2.Ultrasound guidance and microintroducer were used for the placement of the catheter. Anesthesia: 1% lidocaine without epinephrine. Estimated Blood Loss: Less than 5 cc. Specimen: None. Findings: Dark red nonpulsatile blood was returned. Complications: None. Implants: Non-tunneled hemodialysis catheter. Disposition: The patient remained in the ICU in serious condition. Procedure In Detail: After informed consent was obtained, the patient was prepped and draped in the usual sterile fashion after adequate anesthesia was achieved with 1% lidocaine. The area of the righ t groin was ultrasounded and the microintroducer set was used to cannulate the right femoral vein on the first attempt successfully. The micro wire was then advanced and the needle was removed. A smal l fátima incision was made over the insertion site and the introducer sheath was then placed. The micr owire was removed and the standard wire was placed into the right femoral vein without evidence of co mplication. Introducer sheath was removed in its entirety at this time and the incision was opened u p slightly larger with an 11 blade. Sequential dilatation was then performed over the wire using Kae reta technique and ultimately the catheter was introduced without evidence of complication. The wi re out was called for the second time at this point and dark red nonpulsatile blood was returned from both ports. It flushed and withdrew quite easily and both of them were flushed with 10 cc of saline and ultimately they were packed with heparin super flush 2.5 cc per port. The skin was then once ag ain cleansed and the catheter was secured to the skin using the included 2-0 nylon suture and a steri le dressing was placed over the top. The patient tolerated the procedure well without evidence of an y complication, remained in the ICU in serious condition. All counts were correct at the end of the case. IVÁN/JORGE Voice ID: [id number] Report ID: [id number]
[2018-02-27] MEDS: HEPARIN 5000 UNIT/ML 1 ML VIAL SQ SCH ×2 (13:52→21:36)
[2018-02-27] MEDS ORDERED: CALCIUM GLUC 10% INJ 9.3 MEQ in NA CHLORIDE 0.9% 100 ML IV ONE (15:17)
[2018-02-27] MEDS ORDERED: CARVEDILOL 12.5 MG TAB PO SCH (21:00)
[2018-02-27] MEDS ORDERED: HYDRALAZINE HCL 25 MG TABLET PO SCH (21:00)
[2018-02-27] MEDS: CARVEDILOL 12.5 MG TAB PO SCH (21:35)
[2018-02-27] MEDS: HYDRALAZINE HCL 25 MG TABLET PO SCH (21:35)
[2018-02-28 05:08] LABS: Absolute Lymphocytes (CBC) 1.1 K/uL (0.7-4.9); Absolute Monocytes 0.9 K/uL (0.1-1.3); Absolute Neutrophil 6.8 K/uL (1.8-8.0); Basophils % 0.8 % (0-1.3); Eosinophils % 3.4 % (0-4.4); Hematocrit 40.2 % (39.6-49.0); Lymphocytes % 11.8 % (15.3-44.8); Monocytes % 9.5 % (3.3-12.3); RBC Red Blood Cell Count 4.76 M/uL (4.33-5.43)
[2018-02-28 05:30] LABS: Magnesium 2.1 mg/dL (1.8-2.4)
[2018-02-28] MEDS: INSULIN -REGULAR HUMAN 50 UNIT/0.5 ML ML SQ SCH ×4 (07:30→21:00)
[2018-02-28] MEDS: HEPARIN 5000 UNIT/ML 1 ML VIAL SQ SCH ×2 (08:28→21:25)
[2018-02-28] MEDS: AMLODIPINE 5 MG TAB PO SCH (08:28)
[2018-02-28] MEDS: LISINOPRIL 20 MG TAB PO SCH (08:28)
[2018-02-28] MEDS: GABAPENTIN 300 MG CAP PO SCH (08:29)
[2018-02-28] MEDS: SPIRONOLACTONE 25 MG TABLET PO SCH (08:29)
[2018-02-28] MEDS: CARVEDILOL 12.5 MG TAB PO SCH ×2 (08:29→21:24)
[2018-02-28] MEDS: HYDRALAZINE HCL 25 MG TABLET PO SCH (08:29)
[2018-02-28] MEDS: CALCITROL 0.25 MCG CAP PO SCH (08:30)
[2018-02-28] MEDS ORDERED: AMLODIPINE 10 MG TAB PO SCH (09:00)
[2018-02-28] MEDS ORDERED: AMLODIPINE 5 MG TAB PO SCH (09:00)
[2018-02-28] MEDS ORDERED: SPIRONOLACTONE 25 MG TABLET PO SCH (09:00)
[2018-02-28] MEDS ORDERED: LISINOPRIL 20 MG TAB PO SCH (09:00)
--- NOTE | 2018-02-28 12:19 | P.PN ---
Subjective Date of Service: 02/28/18 Chief Complaint: acute on chronic renal failure Pt seen and examined at bedside. Chart Reviewed. Case DW with nephrology. Currently Pt started on HD. Temp Cath placed. Today doing well. Better than before. States he wants to go home. Explained about setting up HD outpt and eventually needing a perm Cath for HD. Review of Systems 10-point ROS is otherwise unremarkable Physical Examination - Vital Signs Temperature: 98.4 F Blood Pressure: 137/76 Pulse: 74 Respirations: 14 Pulse Ox (%): 100 - Physical Exam General: Alert, In no apparent distress HEENT: Atraumatic, PERRLA, EOMI Neck: Supple, JVD not distended Respiratory: Clear to auscultation bilaterally, Normal air movement Cardiovascular: Regular rate/rhythm, Normal S1 S2 Gastrointestinal: Normal bowel sounds, No tenderness Musculoskeletal: No tenderness Integumentary: No rashes Neurological: Normal speech, Normal tone, Normal affect Lymphatics: No axilla or inguinal lymphadenopathy - Studies Medications List Reviewed: Yes Assessment And Plan - Current Problems (Diagnosis) (1) Acute on chronic kidney failure Current Visit: Yes Status: Acute Plan: Acute on chronic Kidney Failure now with ESRD -Most likely progression of his Disease. -Nephrology consulted. Reccs appreciated -HD started yesterday. Will be needing HD today possibly -Will consult CM for HD setup outpt Qualifiers: Acute renal failure type: unspecified Chronic kidney disease stage: stage 5 , not on chronic dialysis Qualified Code(s): N17.9 - Acute kidney failure, unspecified; N18.5 - Chronic kidney disease, stage 5 (2) Uremic encephalopathy Current Visit: Yes Status: Resolved (3) ESRD (end stage renal disease) Current Visit: Yes Status: Chronic Plan: Now on HD (4) Diabetes mellitus type 2 Onset Date: 11/26/16 Current Visit: No Status: Chronic (5) Essential hypertension Onset Date: 11/26/16 Current Visit: No Status: Chronic (6) Obesity (BMI 30.0-34.9) Current Visit: No Status: Chronic Discharge Plan: Other Plan to discharge in: 72 Hours - Code Status/Comfort Care Code Status Assessed: Yes Critical Care: Yes
--- NOTE | 2018-02-28 13:44 | P.PN ---
Subjective Date of Service: 02/28/18 Chief Complaint: acute on chronic renal failure Subjective: Improving Pt with CKD V, presented after fall, uremic encephalopathy started on HD now AAOx3 hydralazine dc k 3.0 , will replace 2nd HD tomorrow Need permenant cath placement and arrangement for OP HD Physical Examination - Vital Signs Temperature: 98.4 F Blood Pressure: 113/63 Pulse: 72 Respirations: 16 Pulse Ox (%): 97 - Physical Exam General: In no apparent distress, Oriented x3 HEENT: Atraumatic Neck: Supple, JVD not distended, Without JVD or thyroid abnormality Respiratory: Clear to auscultation bilaterally, Normal air movement Cardiovascular: No edema, Regular rate/rhythm, Normal S1 S2 Gastrointestinal: Normal bowel sounds, Soft and benign Integumentary: No rashes - Studies Medications List Reviewed: Yes Assessment And Plan - Current Problems (Diagnosis) (1) ESRD (end stage renal disease) Current Visit: Yes Status: Chronic (2) Type II diabetes mellitus with ulcer Onset Date: 02/08/13 Current Visit: No Status: Chronic (3) Obesity (BMI 30.0-34.9) Current Visit: No Status: Chronic (4) Essential hypertension Onset Date: 11/26/16 Current Visit: No Status: Chronic - Plan hx obtained with help of son at bedside , as pt was unable to provide detailed Hx A 57-year-old man legaly blind, with PMhx of DM with retinopathy, HTN PVD and CKD Pt presented after fall in the bathroom pt had poor appetite and activity for the last week , fell yesterday with no trauma or LOC in ER Cr 11, was ~4.5 in July with eGFR of 14 no chest pain, palpitation, nausea, vomiting or diarrhea ESRD started on HD need permenat catheter placement REnal diet renal dose meds HTN controlled will cont on Lisniopril and Norvasc and Coreg DM as per primary MBD asymptomatic hypocalcemia Phoslo and calcitriol
[2018-02-28] MEDS ORDERED: DESMOPRESSIN 20 MCG in NA CHLORIDE 0.9% 50 ML IV ONE (14:00)
[2018-02-28] MEDS ORDERED: DESMOPRESSIN 4 MCG/ML AMP IV ONE (14:00)
[2018-02-28] MEDS ORDERED: POTASSIUM 25 MEQ EFFERV TAB PO ONE (14:00)
[2018-02-28] MEDS: CA ACETATE 667 MG CAP PO SCH (16:36)
--- NOTE | 2018-02-28 21:28 | RAD REPORT ---
EXAM DESCRIPTION: US - Renal Ultrasound-Complete - 02/28/2018 8:27 pm CLINICAL HISTORY: Acute renal insufficiency COMPARISON: 2017 FINDINGS: The right kidney measures 10 cm with an increased echotexture. The left kidney measures 11 cm with an increased echotexture. Hydronephrosis is not seen. No gross abnormality of bladder is seen. A bladder volume 301 cc IMPRESSION: Increased renal echotexture consistent with parenchymal disease
[2018-03-01 06:10] LABS: Absolute Lymphocytes (CBC) 1.2 K/uL (0.7-4.9); Absolute Monocytes 0.8 K/uL (0.1-1.3); Absolute Neutrophil 5.9 K/uL (1.8-8.0); Basophils % 0.7 % (0-1.3); Eosinophils % 5.2 % (0-4.4); Hematocrit 38.9 % (39.6-49.0); Lymphocytes % 14.3 % (15.3-44.8); Monocytes % 9.2 % (3.3-12.3)
[2018-03-01 06:25] LABS: Protime INR 1.08
[2018-03-01 07:11] LABS: Potassium 3.4 mmol/L (3.5-5.1)
[2018-03-01 07:13] LABS: Albumin 2.2 g/dL (3.4-5.0); Bilirubin Total 0.3 mg/dL (0.2-1.0); Protein, Total 6.1 g/dL (6.4-8.2)
[2018-03-01] MEDS: INSULIN -REGULAR HUMAN 50 UNIT/0.5 ML ML SQ SCH ×4 (07:30→21:00)
[2018-03-01] MEDS ORDERED: NA CHLORIDE 0.9% 1,000 ML IV PRN (07:59)
[2018-03-01] MEDS ORDERED: ALBUMIN HUMAN 25% 50 ML IV SCH (08:00)
[2018-03-01] MEDS: CA ACETATE 667 MG CAP PO SCH ×3 (08:00→17:21)
[2018-03-01] MEDS: LISINOPRIL 20 MG TAB PO SCH (09:00)
[2018-03-01] MEDS: CALCITROL 0.25 MCG CAP PO SCH (09:00)
[2018-03-01] MEDS: KCL 20 MEQ/100 mL IVPB 20 MEQ/100 ML BAG IV SCH ×2 (09:00→11:00)
[2018-03-01] MEDS: GABAPENTIN 300 MG CAP PO SCH (09:00)
[2018-03-01] MEDS: HEPARIN 5000 UNIT/ML 1 ML VIAL SQ SCH ×2 (09:00→21:00)
[2018-03-01] MEDS: SPIRONOLACTONE 25 MG TABLET PO SCH (09:00)
[2018-03-01] MEDS: AMLODIPINE 5 MG TAB PO SCH (09:00)
[2018-03-01] MEDS: CARVEDILOL 12.5 MG TAB PO SCH ×2 (13:12→21:03)
[2018-03-01] MEDS ORDERED: PROPOFOL 200 MG/20 ML VIAL IV ONE (13:13)
[2018-03-01] MEDS ORDERED: FENTANYL CITR 100 MCG/2 ML ONE (13:13)
[2018-03-01] MEDS ORDERED: LIDOCAINE 2% MPF 5 ML VIAL ONE (13:14)
[2018-03-01] MEDS ORDERED: MIDAZOLAM HCL 2 MG/2 ML INJ ONE (13:14)
[2018-03-01] MEDS ORDERED: NS 0.9% VIAL 40 ML ONE (13:28)
[2018-03-01] MEDS ORDERED: NA CHLORIDE 0.9% 500 ML ONE (13:29)
[2018-03-01] MEDS ORDERED: CEFAZOLIN 1GM (PREMIX IV) 1 GM/50 ML BAG ONE (13:33)
[2018-03-01] MEDS ORDERED: NS 0.9% VIAL 10 ML ONE ×2 (13:58→14:48)
[2018-03-01] MEDS: BUPIVACA 0.25%/EPI 0.0005% MDV 50 ML VIAL ONE ×2 (14:25→14:30)
[2018-03-01] MEDS: HEPARIN 5000 UNIT/ML 1 ML VIAL ONE ×3 (14:25→14:40)
--- NOTE | 2018-03-01 14:42 | P.PN ---
Subjective Date of Service: 03/01/18 Primary Care Provider: Dr. Duval; Nephrology-Dr. Kelly Chief Complaint: acute on chronic renal failure Subjective: Improving Physical Examination - Vital Signs Temperature: 98.1 F Blood Pressure: 158/70 Pulse: 73 Respirations: 18 Pulse Ox (%): 96 - Physical Exam General: Alert, In no apparent distress, Oriented x3, Cooperative HEENT: Atraumatic Neck: Supple Respiratory: Clear to auscultation bilaterally, Normal air movement Cardiovascular: Normal pulses, Regular rate/rhythm Gastrointestinal: Normal bowel sounds, Soft and benign, Non-distended, No tenderness, No masses, No rebound, No guarding Musculoskeletal: No erythema, No tenderness, No warmth Integumentary: No tenderness/swelling, No erythema, No warmth, No cyanosis Neurological: Normal speech, Normal strength at 5/5 x4 extr, Normal tone, Normal affect - Studies Medications List Reviewed: Yes Assessment & Plan Discharge Plan: Home Plan to discharge in: 48 Hours Physician Review Additional Text: Impression: Acute on chronic renal failure now end-stage renal disease requiring hemodialysis Uremic encephalopathy Diabetes mellitus type 2 Hypertension Obesity, BMI 32.7 Plan: Acute on chronic renal failure now end-stage renal disease requiring hemodialysis: Patient now starting hemodialysis. Hemodialysis catheter in place. Await hepatitis panel to set up outpatient hemodialysis. cloud services architect to help in this process. Once this has been set up then the patient can be discharged home. This will likely occur within the next 48 hr. Will discuss with he nephrology. Uremic encephalopathy: This has resolved. Continue with hemodialysis. Diabetes mellitus type 2: Continue sliding scale. Will monitor and adjust appropriately. Hypertension: Continue with medication. Will monitor closely. Will adjust medication Obesity, BMI 32.7: Continue lifestyle modification education. Time Spent Managing Pts Care (In Minutes): 55
--- NOTE | 2018-03-01 14:49 | P.OP ---
Preoperative diagnosis: ESRD Postoperative diagnosis: ESRD Primary procedure: Placement of Right Internal Jugular Tunnelled 24cm Hemosplit Dialysis Cath Secondary procedure: Ultrasound guidance and micro introducer used Anesthesia: MAC + Local Estimated blood loss: <5cc Specimen: None Findings: Dark, Non-pulsatile blood returned Complications: None Implants: 24 cm Hemosplit Dialysis Catheter Transferred to: Recovery Room Condition: Good
--- NOTE | 2018-03-01 15:20 | RAD REPORT ---
EXAM DESCRIPTION: RAD - Chest Single View - 03/01/2018 3:09 pm CLINICAL HISTORY: sp placement of dialysis cath Chest pain. COMPARISON: Chest Single View dated 02/27/2018; Chest Single View dated 11/29/2016; CHEST SINGLE VIEW dated 11/24/2013; CHEST SINGLE VIEW dated 07/18/2013 FINDINGS: Portable technique limits examination quality. A right-sided venous catheter is in place with its tip in the SVC. No postprocedure pneumothorax is s een. The lungs are grossly clear. The heart is normal in size. No displaced fractures. IMPRESSION: No postprocedure pneumothorax seen.
--- NOTE | 2018-03-01 15:31 | RAD REPORT ---
EXAM DESCRIPTION: RAD - Fluoroscopy <1 Hour - 03/01/2018 3:16 pm CLINICAL HISTORY: Venous catheter insertion. TESSIO CATH PLACEMENT COMPARISON: Urinary Bladder dated 12/18/2015 FINDINGS: Fluoroscopic imaging is submitted from placement of a venous catheter. Details of the pro cedure not available. Fluoroscopy time: 0.2 minutes.
--- NOTE | 2018-03-02 01:36 | OP ---
Date of Procedure: 03/01/2018 Surgeon: Yfn Mandujano MD, Preoperative Diagnosis: End-stage renal disease. Postoperative Diagnosis: End-stage renal disease. Procedure Performed: 1.Placement of right internal jugular tunneled hemodialysis split catheter. 2.Secondary procedure, ultrasound guidance and microintroducer set were used. Anesthesia: MAC plus local with 0.25% Marcaine with epinephrine. Estimated Blood Loss: Less than 5 cc. Specimen: None. Findings: Dark nonpulsatile blood return. Complications: None. Implants: A 24 cm HemoSplit dialysis catheter. Disposition: Transferred to recovery room in good condition. Procedure In Detail: After informed consent was obtained, the patient brought to the operating room, prepped and draped in the usual sterile fashion. After adequate anesthesia was achieved, the patien t was placed in steep Trendelenburg. Using an ultrasound guidance and micro introducer needle, I can nulated the right internal jugular vein on the first attempt. The micro wire was advanced easily and this was confirmed with fluoroscopy at that time. After this was performed, a small fátima incision w as made over the wire introduction site and the microintroducer set sheath was introduced at this nahum e. The wire out was called and the standard wire was then advanced. This position was confirmed onc e again with fluoroscopy and it confirmed good position. After this was performed, I anesthetized a tunneling track to the insertion site from approximately 3 to 4 cm on the chest wall. I then made an incision and tunneled the 24 cm HemoSplit catheter through this tunneling device using this tunnelin g port. At this point, I sequentially dilated up using Seldinger technique the introduction site thr ough the jugular vein and placed the introducer sheath. The catheter was then placed through the int roducer sheath and verified good position with fluoroscopy, which confirmed to be in a good position. The sheath was completely removed and the catheter was placed in good position with good hemostasis at the time. Both ports flushed and withdrew quite easily. They were both flushed with saline unti l completely clear and then packed with heparin super flush, 2 cc per port and the skin incisions wer e all cleaned and closed with the 3-0 nylon suture with good approximation of tissues. The catheter was secured to the chest wall with the same set 2-0 nylon and a sterile dressing placed on top. The patient tolerated the procedure well without any evidence of complication and transferred to PACU in good condition. All counts were correct at the end of the case. A stat chest x-ray will be nikkie MINOR/JORGE Voice ID: [id number] Report ID: [id number]
[2018-03-02 04:03] LABS: HBsAG Nonreactive (Nonreactive)
[2018-03-02 05:56] LABS: Absolute Monocytes 0.7 K/uL (0.1-1.3); Absolute Neutrophil 6.7 K/uL (1.8-8.0); Eosinophils % 5.1 % (0-4.4); Hematocrit 39.7 % (39.6-49.0); Lymphocytes % 11.4 % (15.3-44.8); MPV 8.9 fL (7.6-11.3); Monocytes % 8.3 % (3.3-12.3); RBC Red Blood Cell Count 4.73 M/uL (4.33-5.43)
[2018-03-02 06:09] VITALS: BMI 32.5
[2018-03-02 06:20] LABS: Albumin 2.2 g/dL (3.4-5.0); Bilirubin Total 0.2 mg/dL (0.2-1.0); Potassium 3.6 mmol/L (3.5-5.1); Protein, Total 6.4 g/dL (6.4-8.2)
[2018-03-02] MEDS: INSULIN -REGULAR HUMAN 50 UNIT/0.5 ML ML SQ SCH ×4 (07:30→21:00)
[2018-03-02] MEDS: CA ACETATE 667 MG CAP PO SCH ×3 (09:11→16:41)
[2018-03-02] MEDS: CARVEDILOL 12.5 MG TAB PO SCH ×3 (09:11→21:38)
[2018-03-02] MEDS: SPIRONOLACTONE 25 MG TABLET PO SCH (09:12)
[2018-03-02] MEDS: AMLODIPINE 10 MG TAB PO SCH (09:13)
[2018-03-02] MEDS: LISINOPRIL 20 MG TAB PO SCH (09:14)
[2018-03-02] MEDS: HEPARIN 5000 UNIT/ML 1 ML VIAL SQ SCH (09:15)
[2018-03-02] MEDS: GABAPENTIN 300 MG CAP PO SCH (09:15)
[2018-03-02] MEDS: CALCITROL 0.25 MCG CAP PO SCH (09:19)
--- NOTE | 2018-03-02 13:00 | P.PN ---
Subjective Date of Service: 03/02/18 Primary Care Provider: Dr. Duval; Nephrology-Dr. Kelly Chief Complaint: acute on chronic renal failure Subjective: Doing well Physical Examination - Vital Signs Temperature: 98.7 F Blood Pressure: 126/75 Pulse: 74 Respirations: 16 Pulse Ox (%): 97 - Physical Exam General: Alert, In no apparent distress, Oriented x3, Cooperative HEENT: Atraumatic Neck: Supple Respiratory: Clear to auscultation bilaterally, Normal air movement Cardiovascular: Normal pulses, Regular rate/rhythm Gastrointestinal: Normal bowel sounds, Soft and benign, Non-distended, No tenderness, No masses, No rebound, No guarding Musculoskeletal: No erythema, No tenderness, No warmth Integumentary: No tenderness/swelling, No erythema, No warmth, No cyanosis Neurological: Normal speech, Normal strength at 5/5 x4 extr, Normal tone, Normal affect - Studies Medications List Reviewed: Yes Assessment & Plan Discharge Plan: Home Plan to discharge in: 24 Hours Physician Review Additional Text: Impression: Acute on chronic renal failure now end-stage renal disease requiring hemodialysis Uremic encephalopathy Diabetes mellitus type 2 Hypertension Obesity, BMI 32.7 Plan: Acute on chronic renal failure now end-stage renal disease requiring hemodialysis: Patient has done well with hemodialysis. Hemodialysis catheter in place. Patient likely will receive dialysis today. Awaiting outpatient hemodialysis set up. This will likely occur within the next 24 hr. Will discuss with nephrology on when patient can be discharged home. Will need to make sure that dialysis catheter is working properly. Uremic encephalopathy: This has resolved. Continue with hemodialysis. Diabetes mellitus type 2: Continue sliding scale. Will monitor and adjust appropriately. Hypertension: Continue with medication. This has remained stable. Will continue to adjust medication and monitor closely. Obesity, BMI 32.7: Continue lifestyle modification education. Time Spent Managing Pts Care (In Minutes): 55
--- NOTE | 2018-03-02 15:35 | ECHO ---
HEIGHT: 6 ft 0 in WEIGHT: 240 lb 0 oz DATE OF STUDY: 03/02/[address]: Josh Joaquin MD 2-DIMENSIONAL: YES M.MODE: YES DOPPLER: YES COLOR FLOW: YES TDS: APICALS PORTABLE: NO DEFINITY: NO BUBBLE STUDY: NO DIAGNOSIS: CONGESTIVE HEART FAILURE CARDIAC HISTORY: CATHERIZATION: NO SURGERY: NO PROSTHETIC VALVE: NO PACEMAKER: NO MEASUREMENTS (cm) DIASTOLIC (NORMALS) SYSTOLIC (NORMALS) IVSd 1.6 (0.6-1.2) LA Diam 3.8 (1.9-4.0) LVEF 61% LVIDd 4.1 (3.5-5.7) LVIDs 2.8 (2.0-3.5) %FS 32% LVPWd 1.5 (0.6-1.2) Ao Diam 3.3 (2.0-3.7) 2 DIMENSIONAL ASSESSMENT: RIGHT ATRIUM: NORAML LEFT ATRIUM: NORMAL RIGHT VENTRICLE: NORMAL LEFT VENTRICLE: LEFT VENTRICULAR HYPERTROPHY TRICUSPID VALVE: NORMAL MITRAL VALVE: NORMAL PULMONIC VALVE: NORMAL AORTIC VALVE: NORMAL PERICARDIAL EFFUSION: NONE AORTIC ROOT: NORMAL LEFT VENTRICULAR WALL MOTION: NORMAL. DOPPLER/COLOR FLOW: NORMAL. COMMENTS: TECHNICALLY DIFFICULT STUDY. LEFT VENTRICULAR HYPERTROPHY. DECREASED LEFT VENTRICULAR COMPLIANCE. NORMAL EJECTION FRACTION. TECHNOLOGIST: DENISE VARELA
[2018-03-02] MEDS: WATER FOR INJ,STERILE 10 ML ONE ×2 (20:35→20:37)
[2018-03-02] MEDS: ALTEPLASE 2 MG/VIAL IV SCH ×2 (20:39→21:00)
--- NOTE | 2018-03-03 02:44 | PN ---
Date of Progress Note: 03/02/2018 Chief Complaint: End-stage renal disease. History Of Present Illness: The patient was started on dialysis. The patient underwent tunneled doreen lysis catheter placement. Dialysis was scheduled today to obtain metabolic clearance. The patient w as found to have malfunctioning dialysis catheter and a tPA was used for dialysis catheter. Review of Systems: Denies fever, chills. Physical Examination: Lungs: Clear to auscultation bilaterally. Heart: S1, S2. Abdomen: Soft, benign. Extremities: Minimal edema. Laboratory Data: BUN 60, creatinine 9.35, sodium 137, potassium 3.6, chloride 102, CO2 of 25, calciu m 7.2, albumin 2.2. Impression And Plan: 1.Acute on chronic kidney injury. Dialysis was done today. Continue dialysis for metabolic clearan ce and ultrafiltration. The patient at this point is dialysis dependent. 2.Hypokalemia, replaced and controlled. 3.Hypertension. Continue blood pressure medication. Hold blood pressure medication if systolic blo od pressure is below 100. 4.Diabetes mellitus. Continue insulin, monitor hemoglobin A1c. 5.Hypocalcemia. Continue PhosLo and calcitriol. Monitor phosphorus level and calcium level. Adjust medication according to lab results. BEAR/JORGE Voice ID: [id number] Report ID: [id number]
[2018-03-03 06:12] LABS: Absolute Lymphocytes (CBC) 1.4 K/uL (0.7-4.9); Absolute Monocytes 0.9 K/uL (0.1-1.3); Absolute Neutrophil 5.8 K/uL (1.8-8.0); Basophils % 0.9 % (0-1.3); Eosinophils % 5.6 % (0-4.4); Hematocrit 38.8 % (39.6-49.0); Lymphocytes % 16.7 % (15.3-44.8); MPV 8.9 fL (7.6-11.3); Monocytes % 9.8 % (3.3-12.3); RBC Red Blood Cell Count 4.53 M/uL (4.33-5.43)
[2018-03-03 06:42] LABS: Albumin 2.2 g/dL (3.4-5.0); Bilirubin Total 0.2 mg/dL (0.2-1.0); Potassium 3.7 mmol/L (3.5-5.1); Protein, Total 6.2 g/dL (6.4-8.2)
[2018-03-03] MEDS: INSULIN -REGULAR HUMAN 50 UNIT/0.5 ML ML SQ SCH ×3 (07:30→16:30)
[2018-03-03] MEDS ORDERED: POTASSIUM CL SA 10 MEQ TAB PO ONE (08:00)
[2018-03-03] MEDS: SPIRONOLACTONE 25 MG TABLET PO SCH (09:26)
[2018-03-03] MEDS: CA ACETATE 667 MG CAP PO SCH ×3 (09:26→17:00)
[2018-03-03] MEDS: CALCITROL 0.25 MCG CAP PO SCH (09:26)
[2018-03-03] MEDS: LISINOPRIL 20 MG TAB PO SCH (09:26)
[2018-03-03] MEDS: AMLODIPINE 10 MG TAB PO SCH (09:27)
[2018-03-03] MEDS: GABAPENTIN 300 MG CAP PO SCH (09:27)
[2018-03-03] MEDS: CARVEDILOL 12.5 MG TAB PO SCH (09:28)
--- NOTE | 2018-03-03 11:00 | P.DS ---
Admission Date: 02/27/18 Discharge Date: 03/03/18 Primary Care Provider: Dr. Duval; Nephrology-Dr. Kelly Disposition: ROUTINE DISCHARGE Discharge Condition: GOOD Reason for Admission: acute on chronic renal failure Consultations: Nephrology-Dr. Kelly/Dr. Vick Surgery-Dr. Mandujano Procedures: Renal US: COMPARISON: 2017 FINDINGS: The right kidney measures 10 cm with an increased echotexture. The left kidney measures 11 cm with an increased echotexture. Hydronephrosis is not seen. No gross abnormality of bladder is seen. A bladder volume 301 cc IMPRESSION: Increased renal echotexture consistent with parenchymal disease ECHO: EF-61% LEFT VENTRICULAR WALL MOTION: NORMAL. DOPPLER/COLOR FLOW: NORMAL. COMMENTS: TECHNICALLY DIFFICULT STUDY. LEFT VENTRICULAR HYPERTROPHY. DECREASED LEFT VENTRICULAR COMPLIANCE. NORMAL EJECTION FRACTION. Surgery: Date: 02/27/2018 Primary procedure: Placement of temporary right femoral hemodialysis catheter Secondary procedure: Ultrasound-guided and micro introducer used Complications: None Implants: Non tunneled hemodialysis catheter Surgery: Date: 03/01/2018 Primary procedure placement of right internal jugular tunneled 24 cm HemoSplit dialysis catheter Secondary procedure: Ultrasound guided and micro introducer used Complications none Implants: 24 cm HemoSplit dialysis catheter Medical Problem List: Acute on chronic renal failure now end-stage renal disease requiring hemodialysis Uremic encephalopathy Diabetes mellitus type 2 Hypertension Obesity, BMI 32.7 Suspect obstructive sleep apnea Diabetic neuropathy Brief History of Present Illness: 57-year-old male presented emergency room with increasing fatigue and worsening renal function. Patient with history of diabetes, hypertension and chronic renal disease. Patient was admitted for further evaluation. Hospital Course: Patient presented with increased fatigue due to worsening acute on chronic renal failure. During the course of his stay patient was evaluated by nephrology. Nephrology recommended starting hemodialysis. Surgery was consulted. Placement of temporary right femoral hemodialysis catheter was done. Patient received dialysis. Then the patient had a right internal jugular tunneled dialysis catheter placed. Since then patient has received dialysis. He is doing very well at this time. Arrangements for outpatient hemodialysis has been arranged. Patient will be discharged today after dialysis. Patient will continue with dialysis as directed by nephrology. Prior to discharge temporary right femoral hemodialysis catheter will be removed. At discharge patient will continue with calcitriol 0.5 mcg 1 pill daily, Aldactone 12.5 mg 1 pill daily, and Phoslo 2 pills 3 times a day. Lasix has been discontinued. Further adjustment can be done by nephrology. Patient with diabetes mellitus type 2. Patient will continue with glipizide 10 mg 1 pill twice daily. Patient to maintain blood sugars less 140 fasting and less than 200 after meals. Further adjustment can be done by his PCP. Patient has hypertension. Medications were adjusted during his stay. Lisinopril added. Hydrochlorothiazide discontinued. Patient will continue with medications-Norvasc 10 mg daily, lisinopril 40 mg daily, carvedilol 12.5 mg 1 pill twice daily. Recommendation is to maintain blood pressures less 150/ 80. Further adjustment can be done by his PCP. Patient with obesity, BMI 32.7. Lifestyle modification education addressed in detail. Patient may have underlying obstructive sleep apnea. Recommendation is for the patient to have a sleep study done as an outpatient with pulmonology to further evaluate. Patient has diabetic neuropathy. Patient will continue with gabapentin 300 mg daily. Vital Signs/Physical Exam: Temp Pulse Resp BP Pulse Ox 98.8 F 70 16 166/84 H 96 03/03/18 08:00 03/03/18 09:27 03/03/18 08:00 03/03/18 09:27 03/03/18 08:00 General: Alert, In no apparent distress, Oriented x3, Cooperative HEENT: Atraumatic Neck: Supple, No Thyromegaly Respiratory: Clear to auscultation bilaterally, Normal air movement Cardiovascular: Normal pulses, Regular rate/rhythm Gastrointestinal: Normal bowel sounds, Soft and benign, Non-distended, No tenderness, No masses, No rebound, No guarding Musculoskeletal: No erythema, No tenderness, No warmth Integumentary: No tenderness/swelling, No erythema, No warmth, No cyanosis Neurological: Normal speech, Normal strength at 5/5 x4 extr, Normal tone, Normal affect Laboratory Data at Discharge: WBC 8.6 K/uL (4.3-10.9) 03/03/18 05:40 Hgb 13.1 g/dL (13.6-17.9) L 03/03/18 05:40 Hct 38.8 % (39.6-49.0) L 03/03/18 05:40 Plt Count 178 K/uL (152-406) 03/03/18 05:40 PT 12.8 SECONDS (9.5-12.5) H 03/01/18 05:22 INR 1.08 03/01/18 05:22 APTT 32.0 SECONDS (24.3-36.9) 03/01/18 05:22 Sodium 137 mmol/L (136-145) 03/03/18 05:40 Potassium 3.7 mmol/L (3.5-5.1) 03/03/18 05:40 BUN 52 mg/dL (7-18) H 03/03/18 05:40 Creatinine 8.44 mg/dL (0.55-1.3) H* 03/03/18 05:40 Glucose 152 mg/dL (74-106) H 03/03/18 05:40 Phosphorus 7.0 mg/dL (2.5-4.9) H 02/28/18 07:05 Magnesium 2.1 mg/dL (1.8-2.4) 02/28/18 04:28 Total Bilirubin 0.2 mg/dL (0.2-1.0) 03/03/18 05:40 AST 16 U/L (15-37) 03/03/18 05:40 ALT 14 U/L (12-78) 03/03/18 05:40 Alkaline Phosphatase 91 U/L (45-117) 03/03/18 05:40 Home Medications: Amlodipine [Norvasc*] 10 mg PO DAILY 07/08/16 Spironolactone [Aldactone*] 12.5 mg PO DAILY 07/08/16 Carvedilol 12.5 mg PO BID 11/26/16 Gabapentin 300 mg PO DAILY 02/27/18 glipiZIDE [Glipizide] 10 mg PO BID 02/27/18 Calcitrol [Rocaltrol*] 0.5 mcg PO DAILY #60 cap 03/03/18 Calcium Acetate [Phoslo*] 1,334 mg PO TIDWM #180 cap 03/03/18 Lisinopril [Zestril] 40 mg PO DAILY #30 tablet 03/03/18 New Medications: Calcitrol [Rocaltrol*] 0.5 mcg PO DAILY #60 cap Calcium Acetate [Phoslo*] 1,334 mg PO TIDWM #180 cap Lisinopril [Zestril] 40 mg PO DAILY #30 tablet Patient Discharge Instructions: 1. Patient will need a follow up with his PCP in 1 week to follow up this hospitalization. 2. Patient presented with increased fatigue due to worsening acute on chronic renal failure. During the course of his stay patient was evaluated by nephrology. Nephrology recommended starting hemodialysis. Surgery was consulted. Placement of temporary right femoral hemodialysis catheter was done. Patient received dialysis. Then the patient had a right internal jugular tunneled dialysis catheter placed. Since then patient has received dialysis. He is doing very well at this time. Arrangements for outpatient hemodialysis has been arranged. Patient will be discharged today after dialysis. Patient will continue with dialysis as directed by nephrology. Prior to discharge temporary right femoral hemodialysis catheter will be removed. At discharge patient will continue with calcitriol 0.5 mcg 1 pill daily, Aldactone 12.5 mg 1 pill daily, and Phoslo 2 pills 3 times a day. Lasix has been discontinued. Further adjustment can be done by nephrology. 3. Patient with diabetes mellitus type 2. Patient will continue with glipizide 10 mg 1 pill twice daily. Patient to maintain blood sugars less 140 fasting and less than 200 after meals. Further adjustment can be done by his PCP. 4. Patient has hypertension. Medications were adjusted during his stay. Lisinopril added. Hydrochlorothiazide discontinued. Patient will continue with medications-Norvasc 10 mg daily, lisinopril 40 mg daily, carvedilol 12.5 mg 1 pill twice daily. Recommendation is to maintain blood pressures less 150/80. Further adjustment can be done by his PCP. 5. Patient with obesity, BMI 32.7. Lifestyle modification education addressed in detail. 6. Patient may have underlying obstructive sleep apnea. Recommendation is for the patient to have a sleep study done as an outpatient with pulmonology to further evaluate. 7. Patient has diabetic neuropathy. Patient will continue with gabapentin 300 mg daily. Diet: Renal Activity: Ad heather Time spent managing pt's care (in minutes): 55
[2018-03-03 11:08] VITALS: O2SAT 96
[2018-03-03 12:55] VITALS: BP 141/76; TEMP 98.6
--- NOTE | 2018-03-04 03:53 | PN ---
Date of Progress Note: 03/03/2018 Chief Complaint: End-stage renal disease. History Of Present Illness: End-stage renal disease, new onset. The patient was started on dialysis . The patient underwent tunneled dialysis catheter and is undergoing treatment with dialysis. Proce dure was well tolerated, and temporary catheter was removed. Review of Systems: Denies fever or chills. Physical Examination: Lungs: Clear to auscultation bilaterally. Heart: S1 and S2. Abdomen: Soft and benign. Extremities: Minimal edema. Impression And Plan: 1.End-stage renal disease. Ultrafiltration was done with dialysis. Continue p.o. fluid restriction and low-sodium diet. 2.Hypertension. Adjust blood pressure medication. Hold blood pressure medication if systolic blood pressure is below 110. 3.Renal osteodystrophy. Continue low-phosphorus diet. Monitor phosphorus level. Adjust binders as needed. 4.Hypoalbuminemia. Increase p.o. protein intake. 5.Hyperphosphatemia, controlled with PhosLo. The patient and was started on calcitriol for hypocalc emia and renal osteodystrophy. EB/MODL Voice ID: [id number] Report ID: [id number]
== END 2018-03-03 18:51 | disposition home or self-care (01) | DRG 673 ==
LOC: ER 03:26 → ERHOLD 06:01 → 3RD-ICU 09:03 → 4TH 02-28 13:35
PROVIDERS: ADMIT Internal Medicine; ATTEND Family Medicine
PROC: 5A1D70Z Performance of Urinary Filtration, Intermittent, Less than 6 Hours Per Day (ICD-10-PCS; 2018-02-27)
PROC: 06HM33Z Insertion of Infusion Device into Right Femoral Vein, Percutaneous Approach (ICD-10-PCS; 2018-02-27)
PROC: B54BZZA Ultrasonography of Right Lower Extremity Veins, Guidance (ICD-10-PCS; 2018-02-27)
PROC: 02HV33Z Insertion of Infusion Device into Superior Vena Cava, Percutaneous Approach (ICD-10-PCS; 2018-03-01)
PROC: B548ZZA Ultrasonography of Superior Vena Cava, Guidance (ICD-10-PCS; 2018-03-01)
PROC: 5A1D70Z Performance of Urinary Filtration, Intermittent, Less than 6 Hours Per Day (ICD-10-PCS; 2018-03-01)
PROC: 0JH63XZ Insertion of Tunneled Vascular Access Device into Chest Subcutaneous Tissue and Fascia, Percutaneous Approach (ICD-10-PCS; principal; 2018-03-01 11:30)
PROC: 5A1D70Z Performance of Urinary Filtration, Intermittent, Less than 6 Hours Per Day (ICD-10-PCS; 2018-03-02)
PROC: 5A1D70Z Performance of Urinary Filtration, Intermittent, Less than 6 Hours Per Day (ICD-10-PCS; 2018-03-03)
DX: I12.0 Hypertensive chronic kidney disease with stage 5 chronic kidney disease or end stage renal disease (principal); N18.6 End stage renal disease; N17.9 Acute kidney failure, unspecified; G93.49 Other encephalopathy; E11.22 Type 2 diabetes mellitus with diabetic chronic kidney disease; Z79.84 Long term (current) use of oral hypoglycemic drugs; E11.40 Type 2 diabetes mellitus with diabetic neuropathy, unspecified; E11.319 Type 2 diabetes mellitus with unspecified diabetic retinopathy without macular edema; H54.8 Legal blindness, as defined in USA; E66.9 Obesity, unspecified; E88.9 Metabolic disorder, unspecified; E83.51 Hypocalcemia; Z68.32 Body mass index [BMI] 32.0-32.9, adult; E87.6 Hypokalemia; G47.33 Obstructive sleep apnea (adult) (pediatric); N25.0 Renal osteodystrophy; E88.09 Other disorders of plasma-protein metabolism, not elsewhere classified; E83.39 Other disorders of phosphorus metabolism
CPT/HCPCS: 36415; 70450; 71045; 76000; 76770; 80048; 80053; 80076; 82805; 82962; 83735; 83880; 83970; 84100; 84484; 85025; 85610; 85730; 86317; 86704; 86706; 87070; 87340; 90935; 93005; 93306; 96360; 96361; 99283; C1752; J0610; J0690; J1644; J2250; J2597; J2704; J2997; J3010; J7030

== ENCOUNTER 2018-07-21 15:53 | Emergency (ER) | payer OTHER ==
--- OUTSIDE RECORDS SUMMARY | 2018-07-21 15:57 | XMS REPORT | Clinical Summary ---
:1960 Author Organization [facility] Address [address] [place] [address] Care Team Providers Name Role Phone Tito Duval MD Primary Care Provider Allergies No Known Allergies Medications Medication Sig Dispensed Refills Start Date End Date Status glipiZIDE (GLUCOTROL) 10 Take 10 mg by 0 Active MG tablet mouth 2 (two) times a day before meals. spironolactone Take 25 mg by 0 Active (ALDACTONE) 25 MG tablet mouth daily. amLODIPine (NORVASC) 10 Take 10 mg by 0 Active mg tablet mouth daily. gabapentin (NEURONTIN) Take 300 mg by 0 Active 300 mg capsule mouth daily. carvedilol (COREG) 12.5 Take 12.5 mg by 0 Active MG tablet mouth 2 (two) times a day with meals. furosemide (LASIX) 40 mg Take 40 mg by 0 Active tablet mouth daily. hydrALAZINE (APRESOLINE) Take 25 mg by 0 Active 25 MG tablet mouth daily. Active Problems Not on file Encounters Date Type Specialty Care Team Description 07/03/2018 Orders Only Transplant Tod Marquez RN ESRD (end stage renal disease) ([facility]) (Primary Dx) 04/13/2018 Hospital Encounter Transplant Nilson Toth MD 03/21/2018 Hospital Encounter Transplant Sonal Trinidad, ESRD (end stage renal MD disease) ([facility]) 03/21/2018 Hospital Encounter Transplant Dewayne Elliott, ESRD (end stage renal MD disease) ([facility]) (Primary Dx) 03/21/2018 Hospital Encounter Transplant Nilson Toth MD 03/21/2018 Hospital Encounter Transplant Nilson Toth MD Yi, Stephanie Grace, MD 03/21/2018 Documentation Transplant Nan Fam Consent Forms ( Scanned Consent For Kidney Transplant Evaluation, Pre Txp Education & MADI forms in Media. 03-21-2018) 03/21/2018 Telephone Transplant Jackie Kelly Pre-kidney full eval day 1 03/20/2018 Documentation Transplant Cornejo Shahnaz TXP- [employer] [facility]- RENAL TXP EVAL APPVL 03/03/2018 Telephone Transplant Xavier Velez Referral - Kidney Txp SUNITA Shaver after 07/20/2017 Social History Tobacco Use Types Packs/Day Years Used Date Former Smoker Cigarettes Quit: 1997 Smokeless Tobacco: Never Used Sex Assigned at Date Recorded Not on file Job Start Date Occupation Industry Not on file Not on file Not on file Travel History Travel Start Travel End No recent travel history available. Last Filed Vital Signs Vital Sign Reading Time Taken Blood Pressure 99/55 03/21/2018 9:37 AM DYE ROOM HELPER Pulse 69 03/21/2018 9:37 AM DYE ROOM HELPER Temperature 37 C (98.6 F) 03/21/2018 9:37 AM DYE ROOM HELPER Respiratory Rate 22 03/21/2018 9:37 AM DYE ROOM HELPER Oxygen Saturation 98% 03/21/2018 9:37 AM DYE ROOM HELPER Inhaled Oxygen Concentration - - Weight 113 kg (249 lb 8 oz) 03/21/2018 9:37 AM DYE ROOM HELPER Height 182.9 cm (6') 03/21/2018 9:37 AM DYE ROOM HELPER Body Mass Index 33.84 03/21/2018 9:37 AM DYE ROOM HELPER Plan of Treatment Date Type Specialty Care Team Description 08/08/2018 Appointment Transplant Sonal Trinidad MD [address] [facility] [address] [place] [address] 08/08/2018 Appointment Transplant Dewayne Elliott MD [address] [facility] Suite [facility] [place] [address] 08/08/2018 Appointment Transplant Shahnaz Cornejo 08/08/2018 Appointment Radiology Sonal Trinidad MD [address] [facility] [address] [place] [address] [phone] 08/08/2018 Appointment Radiology Sonal Trinidad MD [address] [facility] [address] [place] [address] [phone] 08/08/2018 Appointment Procedural Cardiology Sonal Trinidad MD [address] [place] [address] [place] [address] [phone] 08/08/2018 Appointment Transplant Sonal Trinidad MD [address] [place] [address] [place] [address] [phone] 08/08/2018 Appointment Radiology Sonal Trinidad MD [address] [place] [address] [place] [address] [phone] 08/08/2018 Appointment Procedural Cardiology Sonal Trinidad MD [address] [place] [address] [place] [address] [phone] 08/08/2018 Appointment Radiology Sonal Trinidad MD [address] [place] [address] [place] [address] [phone] Health Maintenance Due Date Last Done Comments COLON CANCER SCREENING 11/11/2009 SHINGLES VACCINES (#1) 11/11/2009 INFLUENZA VACCINE 10/05/2018 Procedures Procedure Name Priority Date/Time Associated Comments Diagnosis GRAM STAIN Routine 03/21/2018 12:50 Results for this PM DYE ROOM HELPER procedure are in the results section. URINE CULTURE Routine 03/21/2018 12:50 Results for this PM [employer]YE ROOM HELPER procedure are in the results section. HEPATITIS A ANTIBODY IGM Routine 03/21/2018 11:24 Results for this AM DYE ROOM HELPER procedure are in the results section. ESTIMATED GFR Routine 03/21/2018 11:24 Results for this AM DYE ROOM HELPER procedure are in the results section. PROSTATE SPECIFIC Routine 03/21/2018 11:24 ESRD (end stage Results for this ANTIGEN AM DYE ROOM HELPER renal disease) procedure are in (HCC) the results section. SERUM ELECTROPHORESIS Routine 03/21/2018 11:24 ESRD (end stage Results for this AM DYE ROOM HELPER renal disease) procedure are in ([facility]) the results section. C-PEPTIDE Routine 03/21/2018 11:24 ESRD (end stage Results for this AM DYE ROOM HELPER renal disease) procedure are in ([facility]) the results section. TB T-SPOT Routine 03/21/2018 11:24 ESRD (end stage Results for this AM DYE ROOM HELPER renal disease) procedure are in ([facility]) the results section. NICOTINE AND Routine 03/21/2018 11:24 ESRD (end stage Results for this METABOLITES, SERUM AM DYE ROOM HELPER renal disease) procedure are in ([facility]) the results section. URINE DRUGS OF ABUSE Routine 03/21/2018 11:24 ESRD (end stage Results for this SCREEN AM DYE ROOM HELPER renal disease) procedure are in ([facility]) the results section. ABORH - TRANSPLANT Routine 03/21/2018 11:24 ESRD (end stage Results for this AM DYE ROOM HELPER renal disease) procedure are in ([facility]) the results section. PARTIAL THROMBOPLASTIN Routine 03/21/2018 11:24 ESRD (end stage Results for this TIME (PTT) AM DYE ROOM HELPER renal disease) procedure are in ([facility]) the results section. PROTHROMBIN TIME WITH Routine 03/21/2018 11:24 ESRD (end stage Results for this INR AM DYE ROOM HELPER renal disease) procedure are in ([facility]) the results section. HC COMPLETE BLD COUNT Routine 03/21/2018 11:24 ESRD (end stage Results for this W/AUTO DIFF AM DYE ROOM HELPER renal disease) procedure are in ([facility]) the results section. SYPHILIS TREPONEMAL IGG Routine 03/21/2018 11:24 ESRD (end stage Results for this AM DYE ROOM HELPER renal disease) procedure are in ([facility]) the results section. HEPATITIS C ANTIBODY Routine 03/21/2018 11:24 ESRD (end stage Results for this AM DYE ROOM HELPER renal disease) procedure are in ([facility]) the results section. HEPATITIS B SURFACE AB, Routine 03/21/2018 11:24 ESRD (end stage Results for this QUANTITATIVE AM DYE ROOM HELPER renal disease) procedure are in ([facility]) the results section. HEPATITIS B SURFACE Routine 03/21/2018 11:24 ESRD (end stage Results for this ANTIGEN AM DYE ROOM HELPER renal disease) procedure are in ([facility]) the results section. HEPATITIS B SURFACE Routine 03/21/2018 11:24 ESRD (end stage Results for this ANTIBODY AM DYE ROOM HELPER renal disease) procedure are in ([facility]) the results section. HEPATITIS B CORE Routine 03/21/2018 11:24 ESRD (end stage Results for this ANTIBODY TOTAL AM DYE ROOM HELPER renal disease) procedure are in ([facility]) the results section. HEPATITIS A ANTIBODY Routine 03/21/2018 11:24 ESRD (end stage Results for this TOTAL AM DYE ROOM HELPER renal disease) procedure are in ([facility]) the results section. HIV AG/AB COMBINATION Routine 03/21/2018 11:24 ESRD (end stage Results for this AM DYE ROOM HELPER renal disease) procedure are in ([facility]) the results section. URINALYSIS SCREEN AND Routine 03/21/2018 11:24 ESRD (end stage Results for this MICROSCOPY, WITH REFLEX AM DYE ROOM HELPER renal disease) procedure are in TO CULTURE ([facility]) the results section. COMPREHENSIVE METABOLIC Routine 03/21/2018 11:24 ESRD (end stage Results for this PANEL AM DYE ROOM HELPER renal disease) procedure are in ([facility]) the results section. after 07/20/2017 Results Gram stain (03/21/2018 12:50 PM DYE ROOM HELPER) Gram stain result No WBC's or organisms seen. [facility] Comment: Specimen Information Specimen Source: Urine Specimen Site: Clean catch Specimen Urine Performing Organization Address City/[facility] Phone Number [facility] DEPARTMENT OF PATHOLOGY AND [address] [place] [phone] Urine culture (03/21/2018 12:50 PM DYE ROOM HELPER) Urine culture isolate growth after 24 hours [facility] Comment: Specimen Information Specimen Source: Urine Specimen Site: Clean catch Specimen Urine Performing Organization Address City/[facility] Hospitalcode Phone Number [facility] DEPARTMENT OF PATHOLOGY AND [address] [place] [phone] Syphilis treponemal IgG (03/21/2018 11:24 AM DYE ROOM HELPER) Syphilis treponemal IgG Non-reactiveComment: Non-reactive [facility] Non-reactive: No HOSPITAL serological evidence of Syphilis infection Specimen Serum Performing Organization Address City/[facility] Hospital[facility] Phone Number [facility] DEPARTMENT OF PATHOLOGY AND [address] [place] [phone] [place] [phone] Urinalysis screen and microscopy, with reflex to culture (03/21/2018 11:24 AM DYE ROOM HELPER) Specimen site Clean catch [facility] Color, UA Straw [facility] Appearance, UA Clear [facility] Specific gravity, UA 1.012 1.001 - 1.035 [facility] pH, UA 6.0 5.0 - 8.5 [facility] Protein, UA 3+ (A) Negative [facility] Glucose, UA 3+ (A) Negative [facility] Ketones, UA Negative Negative [facility] Bilirubin, UA Negative Negative [facility] Blood, UA Small (A) Negative [facility] Nitrite, UA Negative Negative [facility] Urobilinogen, UA <2.0 <2.0 [facility] Leukocyte esterase, UA Negative Negative [facility] WBC, UA 6 (H) 0 - 1 /HPF [facility] RBC, UA 1 0 - 5 /HPF [facility] Bacteria, UA Few None seen [facility] Yeast, UA None seen [facility] Yeast with pseudohyphae, UA None seen [facility] Hyaline casts, UA 3 /LPF [facility] Specimen Urine Performing Organization Address City/[facility] Hospitalcode Phone Number [facility] DEPARTMENT OF PATHOLOGY AND [address] [place] [phone] Estimated GFR (03/21/2018 11:24 AM DYE ROOM HELPER) Estimated GFR 6 (A) mL/min/1.73 m2 [facility] Comment: HOSPITAL CatergoryUnitsInterpretation G1 >=90 Normal or high G2 60-89Mildly decreased A1j00-49Dzrzfd to moderately decreased A3f28-39Avibkvxptn to severely decreased G4 15-29Severely decreased G5 <15Kidney failure The eGFR was calculated using the Chronic Kidney Disease Epidemiology Collaboration (CKD-EPI) equation. Interpretation is based on recommendations of the National Kidney Foundation-Kidney Disease Outcomes Quality Initiative (NKF-KDOQI) published in 2014. Specimen Plasma specimen Performing Organization Address City/[facility]/Zipcode Phone Number [facility] DEPARTMENT OF PATHOLOGY AND [address] [place] [phone] [place] [phone] HIV Ag/Ab combination (03/21/2018 11:24 AM DYE ROOM HELPER) HIV Ag/Ab combination Non-reactive Non-reactive [facility] Specimen Blood Performing Organization Address City/State/Zipcode Phone Number [facility] DEPARTMENT OF PATHOLOGY AND [address] [place] [address] GENOMIC MEDICINE [facility] [address] [place] [address] TB T-SPOT (03/21/2018 11:24 AM DYE ROOM HELPER) TB T-SPOT SEE NOTE [facility] Comment: T-SPOT TUBERCULOSIS Nil Control: 0 Panel A: 2 Panel B: 2 Positive Control: TMTC Result: NEGATIVE NOTE: TMTC INDICATES TOO MANY SPOTS TO COUNT SAT INDICATES THE WELL WAS SATURATED RESULTS INTERPRETATION: RESULTS ARE NEGATIVE WHEN (PANEL A-NIL) OR (PANEL B-NIL) <=4 SPOTS, INCLUDING VALUES LESS THAN ZERO. RESULTS ARE POSITIVE WHEN (PANEL A-NIL) OR (PANEL B-NIL) >=8 SPOTS RESULTS ARE BORDERELINE WHEN EITHER (PANEL A-NIL) OR (PANEL B-NIL)=5,6,0R 7. THE TEST IS INVALID WHEN EITHER OF THE FOLLOWING CONDITIONS IS MET: 1.) THE NIL CONTROL HAS >10 SPOTS 2.) THE MITOGEN (POSITIVE CONTROL) HAS <20 SPOTS AND BOTH (PANEL A-NIL) AND (PANEL B-NIL) <=4 SPOTS. M. TUBERCULOSIS INFECTION UNLIKELY, BUT CANNOT BE EXCLUDED ESPECIALLY WHEN: 1. ANY ILLNESS IS CONSISTENT WITH TB DISEASE. 2. LIKELIHOOD OF PROGRESSION TO DISEASE (e.g. DUE TO IMMUNOSUPPRESSION) IS INCREASED. LIMITATIONS: DIAGNOSING OR EXCLUDING TUBERCULOSIS DISEASE, AND ASSESSING THE PROBABILITY OF LTBI, REQUIRES A COMBINATION OF EPIDEMIOLOGICAL, HISTORICAL, MEDICAL, AND DIAGNOSTIC FINDINGS THAT SHOULD BE TAKEN INTO ACCOUNT WHEN INTERPRETING T-SPOT.TB REFER TO THE MOST RECENT CDC GUIDANCE (HTTP: //WWW.CDC.GOV/NCHSTP/TB) FOR DETAILED RECOMMENDATIONS ABOUT DIAGNOSING TB INFECTION (INCLUDING DISEASE) AND SELECTING PERSONS FOR TESTING. 1.) A FALSE NEGATIVE RESULT CAN BE CAUSED BY INCORRECT BLOOD SAMPLE COLLECTION OR IMPROPER HANDLING OF THE SPECIMEN, AFFECTING LYMPHOCYTE FUNCTION 2.) THE PERFORMANCE OF T-SPOT.TB HAS NOT BEEN ADEQUATELY EVALUATED WITH SPECIMENS FROM INDIVIDUALS YOUNGER THANAGE 17 YEARS, IN WOMEN, AND IN PATIENTS WITH HEMOPHILIA. 3-) A FALSE POSITIVE RESULT WAS OBTAINED FOR T-SPOT.TB WHEN TESTED IN SUBJECTS WITH M. XENOPI, M. KANSASII, AND M. GORDONAE.WHILE ESAT-6 AND CFP-10 ANTIGENS ARE ABSENT FROM BCG STRAINS OF M. BOVIS AND FROM MOST ENVIRONMENTAL MYCOBACTERIA, IT IS POSSIBLE THAT A POSITIVE T-SPOT.TB RESULT MAY BE DUE TO INFECTION WITH M. KANSASII, M. SZULGAI, M. GORDONAE, OR M. MARINUM. ALTERNATIVE TESTS WOULD BE REQUIRED IF THESE INFECTIONS ARE SUSPECTED. 4.) A NEGATIVE TEST RESULT DOES NOT EXCLUDE THE POSSIBILITY OF EXPOSURE TO, OR INFECTION WITH, M. TUBERCULOSIS. PATIENTS WITH RECENT EXPOSURE TO TB INFECTED INDIVIDUALS EXHIBITING A NEGATIVE T-SPOT.TB RESULT SHOULD BE CONSIDERED FOR RETESTING WITHIN 6 WEEKS OR IF OTHER RELEVANT CLINICAL SYMPTOMS INDICATE POSSIBLE INFECTION. 5.) A POSITIVE TEST RESULT DOES NOT RULE IN ACTIVE TB DISEASE; OTHER TESTS SHOULD BE PERFORMED TO CONFIRM THE DIAGNOSIS OF ACTIVE TB DISEASE SUCH SPUTUM SMEAR AND CULTURE, PCR AND CHEST RADIOGRAPHY. 6.) T-SPOT.TB TEST HAS NOT BEEN EVALUATED IN SUBJECTS WHO HAVE RECEIVED >1 MONTH OF ANTI-TB THERAPY. 7. ) REFRIGERATED AND FROZEN SAMPLES ARE NOT RECOMMENDED FOR USE WITH T=SPOT.TB TEST. Performed by: [facility] Molecular Tuberculosis Laboratory [facility] ([id number]) [place], [place] [address] Specimen Blood Performing Organization Address City/State/Zipcode Phone Number [facility] DEPARTMENT OF PATHOLOGY AND [address] [place] [phone] [employer] MEDIC[facility] Nicotine and metabolites, serum (03/21/2018 11:24 AM DYE ROOM HELPER) Nicotine <2.0 0.0 - 1.9 ng/mL [facility] Cotinine <2.0 0.0 - 1.9 ng/mL [facility] 0-UD-ofzdpgrz SEE COMMENT 0.0 - 4.9 ng/mL [facility] Comment: [facility] This test was developed and its performance characteristics determined by the Department of Pathology and Genomic Medicine, [facility]. Serum nicotine and its metabolites cotinine and 7-SB-guenmumv are tested by HPLC tandem mass spectrometry. It has not been cleared or approved by FDA. The laboratory is regulated under CLIA as qualified to perform high-complexity testing. This test is used for clinical purposes. It should not be regarded as investigational or for research. Footnote--------- Effective as of 03/22/18, Diagnostic Immunology Laboratory at [facility] will remove 3-hydroxycotinine component in the Serum Nicotine and Metabolites test. The test will still analyze serum nicotine and its major metabolite, cotinine, which is the most sensitive marker to detect nicotine exposure. This change to include only nicotine and cotinine brings our testing in concordance with most other [facility] centers, such as [facility] and [facility]. Specimen Blood Performing Organization Address City/[facility]/Zipcode Phone Number [facility] DEPARTMENT OF PATHOLOGY AND [address] [place] [phone] GENOMIC MEDICINE [place] [phone] [place] [address] Hepatitis B surface Ab, quantitative (03/21/2018 11:24 AM DYE ROOM HELPER) Hepatitis B surface Ab <3.10 IU/L [facility] Comment: The anti-HBs is less than 10 IU/L and is therefore negative. There is no evidence of recovery from hepatitis B infection or evidence of antibody response to HBV vaccination. An anti-HBs result greater than or equal to 10 IU/L implies immunity. For post-vaccination antibody testing guidelines for the general public refer to MMWR February 26, 2005/Vol. 54(No. 16);1-23, and for healthcare workers refer to MMWR February 23, 2013/Vol. 62(No. 10);1-19. Reference Interval: anti-HBs 9.99 IU/L or less ....... Negative 10.00 IU/L or greater .... Positive Results greater than 1,000.00 IU/L are reported as greater than 1,000.00 IU/L. This assay should not be used for blood donor screening, associated re-entry protocols, or for screening Human Cell, Tissues and Cellular and Tissue-Based Products (HCT/P). Performed by [facility], [address] [place], [place] [id number] [email or web address], Kevin Ram MD - Lab. Director Specimen Serum Performing Organization Address [facility] Phone Number [facility] [address] [place] [address] [facility] [address] [place] [address] Hepatitis C antibody (03/21/2018 11:24 AM DYE ROOM HELPER) Hepatitis C Ab Non-reactive Non-reactive [facility] Specimen Blood Performing Organization Address City/[facility]/Zipcode Phone Number [facility] DEPARTMENT OF PATHOLOGY AND [address] [place] [phone] [place] [phone] Hepatitis A antibody IgM (03/21/2018 11:24 AM DYE ROOM HELPER) Hepatitis A IgM Non-reactive Non-reactive [facility] Performing Organization Address City/[facility] Phone Number [facility] DEPARTMENT OF PATHOLOGY AND [address] [place] [phone] Hepatitis A antibody total (03/21/2018 11:24 AM DYE ROOM HELPER) Hepatitis A total Ab Reactive (A) Non-reactive [facility] Comment: HOSPITAL Hepatitis A Total Antibody reactive. Hepatitis A IgM antibody will be performed and reported separately when completed. Specimen Blood Performing Organization Address City/[facility]/Zipcode Phone Number [facility] DEPARTMENT OF PATHOLOGY AND [address] [place] [phone] ABORh - transplant (03/21/2018 11:24 AM DYE ROOM HELPER) ABO grouping O [facility] Rh type POS [facility] Specimen Blood Performing Organization Address City/[facility] Phone Number [facility] DEPARTMENT OF PATHOLOGY AND [address] [place] [address] Hepatitis B core antibody total (03/21/2018 11:24 AM DYE ROOM HELPER) Hepatitis B core total Ab Reactive (A) Non-reactive [facility] Specimen Blood Performing Organization Address City/[facility]/Zipcode Phone Number [facility] DEPARTMENT OF PATHOLOGY AND [address] [place] [phone] C-peptide (03/21/2018 11:24 AM DYE ROOM HELPER) C-peptide 24.1 (H) 1.1 - 4.4 ng/mL [facility] Specimen Plasma specimen Performing Organization Address City/State/Zipcode Phone Number [facility] DEPARTMENT OF PATHOLOGY AND [address] [place] [phone] Urine drugs of abuse screen (03/21/2018 11:24 AM DYE ROOM HELPER) Amphetamine screen, urine Negative [facility] Barbiturate screen, urine Negative [facility] Benzodiazepine screen, Negative [facility] urine [facility] Cannabinoid screen, urine Negative [facility] Cocaine screen, urine Negative [facility] Methadone metabolite Negative [facility] (EDDP), urine HOSPITAL Opiates screen, urine Negative [facility] Oxycodone screen, urine Negative [facility] Phencyclidine screen, urine Negative [facility] Tricyclic screen, urine Negative [facility] Comment: HOSPITAL Drug screen minimum concentration of detectability Bueadfiscewv0336 ng/mL Barbiturates 200 ng/mL Ankvrokrrttczpx375 ng/mL Fjddeqe108 ng/mL Bnhcjwqtf093 ng/mL Evymqgr808 ng/mL Zsxsqwifq868 ng/mL Phencyclidine 25 ng/mL Loafgtozvrpm41 ng/mL Btppdeowva4854 ng/mL Negative test results indicates presumptive evidence of lack of clinically significant drug concentration in this urine specimen. Positive test results are presumptive evidence of clinically significant drug concentration in this urine specimen. Testing performed for medical purposes only. Specimen Urine Performing Organization Address City/[facility] Phone Number [facility] DEPARTMENT OF PATHOLOGY AND [address] [place] [phone] Hepatitis B surface antibody (03/21/2018 11:24 AM DYE ROOM HELPER) Hepatitis B surface Ab Non-reactive Non-reactive [facility] Specimen Blood Performing Organization Address City/[facility] Phone Number [facility] DEPARTMENT OF PATHOLOGY AND [address] [place] [id number] Hepatitis B surface antigen (03/21/2018 11:24 AM DYE ROOM HELPER) Hepatitis B surface Ag Non-reactive Non-reactive [facility] Specimen Blood Performing Organization Address City/[facility] Phone Number [facility] DEPARTMENT OF PATHOLOGY AND [address] [place] [phone] Partial thromboplastin time, activated (03/21/2018 11:24 AM DYE ROOM HELPER) PTT 30.2 23.0 - 36.0 sec [facility] Comment: PTT therapeutic range for unfractionated heparin is 61.0-112.0 seconds which corresponds to Anti-Xa 0.3-0.7 U/ml. Specimen Blood Performing Organization Address City/[facility]/Zipcode Phone Number [facility] DEPARTMENT OF PATHOLOGY AND [address] [place] [phone] [address] Prothrombin time with INR (03/21/2018 11:24 AM DYE ROOM HELPER) Prothrombin time 13.5 11.5 - 14.5 sec [facility] INR 1.1 [facility] Comment: HOSPITAL The International Normalized Ratio (INR) is a therapeutic monitoring tool for patients who are stable on oral anticoagulant therapy. An INR of 2.0-3.0 is suggested for deep vein thrombosis/pulmonary embolism. Specimen Blood Performing Organization Address [facility] Phone Number [facility] DEPARTMENT OF PATHOLOGY AND [address] [place] [phone] [address] CBC with platelet and differential (03/21/2018 11:24 AM DYE ROOM HELPER) WBC 11.03 (H) 4.50 - 11.00 k/uL [facility] RBC 4.46 4.40 - 6.00 m/uL [facility] HGB 12.8 (L) 14.0 - 18.0 g/dL [facility] HCT 39.5 (L) 41.0 - 51.0 % [facility] MCV 88.6 82.0 - 100.0 fL [facility] MCH 28.7 27.0 - 34.0 pg [facility] MCHC 32.4 31.0 - 37.0 g/dL [facility] RDW - SD 48.8 37.0 - 55.0 fL [facility] MPV 10.4 8.8 - 13.2 fL [facility] Platelet count 245 150 - 400 k/uL [facility] Nucleated RBC 0.00 /100 WBC [facility] Neutrophils 72.3 (H) 39.0 - 69.0 % [facility] Lymphocytes 13.2 (L) 25.0 - 45.0 % [facility] Monocytes 7.1 0.0 - 10.0 % [facility] Eosinophils 6.1 (H) 0.0 - 5.0 % [facility] Basophils 0.7 0.0 - 1.0 % [facility] Immature granulocytes 0.6Comment: "Immature 0.0 - 1.0 % [facility] granulocytes" [facility] (promyelocytes, myelocytes, metamyelocytes) Specimen Blood Performing Organization Address City/[facility]code Phone Number [facility] DEPARTMENT OF PATHOLOGY AND [address] [place] [address] [address] Serum electrophoresis (03/21/2018 11:24 AM DYE ROOM HELPER) Protein 7.6 6.3 - 8.3 g/dL [facility] Comment: HOSPITAL 4.6-7.0 g/dL 1 week 4.4-7.6 g/dL 7 months-1year5.1-7.3 g/dL 1-2 years5.6-7.5 g/dL >3 years6.0-8.0 g/dL 18-150 6.3-8.3 g/dL SPE albumin 4.44 4.00 - 5.30 g/dL [facility] SPE alpha 1 0.20 0.10 - 0.25 g/dL [facility] SPE alpha 2 1.00 (H) 0.58 - 0.84 g/dL [facility] SPE beta 1.03 0.50 - 1.10 g/dL [facility] SPE gamma 0.94 0.60 - 1.30 g/dL [facility] SPE extended See Comment [facility] interpretation Comment: [facility] Increased alpha-2 globulins may be due to increased haptoglobin in an acute phase response or increased alpha-2 macroglobulin in diabetes mellitus. SPE interpretation See CommentComment: [facility] Sunita Woods MD; [facility] Vivi, PhD, Valeria Clark MD Specimen Serum Performing Organization Address City/[facility]/Zipcode Phone Number [facility] DEPARTMENT OF PATHOLOGY AND [address] [address] Prostate specific antigen (03/21/2018 11:24 AM DYE ROOM HELPER) PSA 0.3 0.0 - 4.0 ng/mL [facility] Comment: The ALIZA 8000 PSA immunoassay was used. Results obtained with different assay methods or kits should not be used interchangeably and may be different. Specimen Plasma specimen Performing Organization Address City/State/Zipcode Phone Number [facility] DEPARTMENT OF PATHOLOGY AND [address] [place] [address] [address] Comprehensive metabolic panel (03/21/2018 11:24 AM DYE ROOM HELPER) Sodium 130 (L) 135 - 148 mEq/L [facility] Potassium 4.9 3.5 - 5.0 mEq/L [facility] Chloride 90 (L) 98 - 112 mEq/L [facility] CO2 23 (L) 24 - 31 mEq/L [facility] Anion gap 17@ANIO (H) 7 - 15 mEq/L [facility] BUN 61 (H) 6 - 20 mg/dL [facility] Creatinine 9.17 (H) 0.70 - 1.20 mg/dL [facility] Glucose 158 (H) 65 - 99 mg/dL [facility] Calcium 9.0 8.3 - 10.2 mg/dL [facility] Protein 7.5 6.3 - 8.3 g/dL [facility] Comment: HOSPITAL 4.6-7.0 g/dL 1 week 4.4-7.6 g/dL 7 months-1year5.1-7.3 g/dL 1-2 years5.6-7.5 g/dL >3 years6.0-8.0 g/dL 18-150 6.3-8.3 g/dL Albumin 3.3 (L) 3.5 - 5.0 g/dL [facility] A/G ratio 0.8 0.7 - 3.8 [facility] Alkaline phosphatase 105 40 - 129 U/L [facility] AST 15 10 - 50 U/L [facility] ALT 13 5 - 50 U/L [facility] Total bilirubin 0.3 0.0 - 1.2 mg/dL [facility] Specimen Plasma specimen Performing Organization Address City/State/Zipcode Phone Number [facility] DEPARTMENT OF PATHOLOGY AND [address] [place] [address] [address] after 07/20/2017 Insurance Payer Benefit Plan / Group Subscriber ID Type Phone Address [facility] PPO [facility] MEDICARE MEDICARE PART A AND B xxxxxxxxxxx Medicare [place], [place] (Home) [place] [address] [facility] [employer] Self [address] [place] [address] ([place]) [place] [address] Advance Directives Patient has advance care planning documents on file. For more information, please contact:Duncan Steve[address] [place] [address]
--- NOTE | 2018-07-21 16:52 | RAD REPORT ---
EXAM DESCRIPTION: CT - Head Brain Wo Cont - 07/21/2018 4:23 pm CLINICAL HISTORY: Headache, syncope COMPARISON: February 2018 CT imaging TECHNIQUE: Axial 5 mm thick images of the head were obtained without IV contrast. All CT scans are performed using dose optimization technique as appropriate and may include automated exposure control or mA/KV adjustment according to patient size. FINDINGS: No intracranial hemorrhage, mass, edema or shift of mid-line structures. No acute infarcti on changes seen. No cortical edema or sulcal effacement. Volume loss and chronic ischemic changes are similar to comparison. Ventricles are normal. Mastoid air cells and visualized portions of the paranasal sinuses are clear. No acute bony findings. IMPRESSION: Negative non-contrast CT head examination for acute finding. No identifiable change fro m February 2018.
[2018-07-21] MEDS ORDERED: LIDOCAINE 1% MPF 5 ML VIAL ONE (17:01)
[2018-07-21] MEDS ORDERED: TETANUS & DIPHTHERIA TOX,ADULT 0.5 ML VIAL ONE (17:01)
--- NOTE | 2018-07-21 17:47 | ER ---
Nurse's Notes [facility] Name: Dayton Grijalva Age: 57 yrs Sex: Male : 1960 Arrival Date: 07/21/2018 Time: 15:56 Bed 18 Private MD: Diagnosis: Superficial injury of head;Laceration without foreign body of unspecified part of head-forehead Presentation: 07/21 15:56 Presenting complaint: EMS states: completed dialysis and orthostatic VS were being aa5 completed by dialysis staff and pt reported that when he stood up his knees gave out and fell forward, hitting forehead on a metal cart. Negative LOC. Pt denies dizziness or any other symptoms before fall, denies any symptoms at this time. 1in laceration noted to forehead, no active bleeding noted, gauze and tape noted to site. EMS reports BP 90/50 and HR 70, pt states "my blood pressure is usually low". 15:56 Care prior to arrival: None. Mechanism of Injury: Fall from standing position. Trauma aa5 event details: Injury occurred in the [facility], Injury occurred: July 21, 2018. 15:56 Acuity: SAMARA 3 aa5 15:56 Method Of Arrival: EMS: [facility] aa5 15:56 Transition of care: [facility]. Onset of symptoms was July 21, 2018. aa5 15:56 Risk Assessment: Do you want to hurt yourself or someone else? Patient reports no aa5 desire to harm self or others. Initial Sepsis Screen: Does the patient meet any 2 criteria? No. Patient's initial sepsis screen is negative. Does the patient have a suspected source of infection? No. Patient's initial sepsis screen is negative. Trauma Activation: Not Applicable Physician: ED Physician; Name: ; Notified At: ; Arrived At: Physician: General Surgeon; Name: ; Notified At: ; Arrived At: Physician: Radiology; Name: ; Notified At: ; Arrived At: Physician: Respiratory; Name: ; Notified At: ; Arrived At: Physician: Lab; Name: ; Notified At: ; Arrived At: Historical: - Allergies: 15:56 No Known Allergies; aa5 - PMHx: 15:56 Diabetes - IDDM; Hypertension; aa5 - PSHx: 15:56 left foot sx; aa5 - Immunization history:: Flu vaccine is up to date. - Social history:: Smoking status: Patient/guardian denies using tobacco. - Immunization history: Last tetanus immunization: unknown. - Ebola Screening: : No symptoms or risks identified at this time. Screenin:00 Abuse screen: Denies threats or abuse. Nutritional screening: No deficits noted. aa5 Tuberculosis screening: No symptoms or risk factors identified. Fall Risk Fall in past 12 months (25 points). Total Masters Fall Scale indicates Low Risk Score (25-44 pts). Fall prevention measures have been instituted. Side Rails Up X 2 Placed close to Nursing Station. Primary Survey: 15:56 NO uncontrolled hemorrhage observed. A: The patient is alert. Airway: patent. aa5 Breathing/Chest: Respiratory pattern: regular, Respiratory effort: spontaneous, unlabored, Chest inspection: symmetrical rise and fall of the chest. Circulation: Skin color: pink. Disability Alert. Exposure/Environment: There is no evidence of uncontrolled external bleeding. 16:30 Reassessment Airway Airway Patent Breathing/Chest Respiratory pattern Regular aa5 Respiratory effort Spontaneous Unlabored Chest inspection Symmetrical Circulation Color [place] Disability Alert. Secondary Survey: 15:56 HEENT: Head Other Laceration noted to forehead. Gastrointestinal: No deficits noted. aa5 : No deficits noted. Musculoskeletal: Range of motion: intact in all extremities. Assessment: 15:56 General: Appears comfortable, Behavior is calm, cooperative. Pain: Complains of pain in aa5 forehead Pain does not radiate. Pain currently is 3 out of 10 on a pain scale. Quality of pain is described as aching, Pain began post-fall Is continuous. Neuro: Level of Consciousness is awake, alert, obeys commands, Oriented to person, place, time, situation, Window Installation Subcontractor are equal bilaterally Moves all extremities. Speech is normal, Facial symmetry appears normal, Pupils are PERRLA, Denies weakness dizziness, paresthesias numbness headache. EENT: No signs and/or symptoms were reported regarding the EENT system. Cardiovascular: Denies lightheadedness, Heart tones S1 S2 present Dialysis catheter noted to right side of chest. . Rhythm is regular Dialysis shunt: in the left arm, with palpable thrill, with auscultated bruit, with no erythema, with no edema, no bleeding noted. Respiratory: Airway is patent Respiratory effort is even, unlabored, Respiratory pattern is regular, symmetrical. GI: Abdomen is round Bowel sounds present X 4 quads. Abd is soft and non tender X 4 quads. Patient currently denies nausea, vomiting. : No signs and/or symptoms were reported regarding the genitourinary system. Derm: Skin is pink, warm \\T\\ dry. 1in laceration noted to forehead, no active bleeding noted. Abrasions noted to both sides of nose caused by glasses, no bleeding noted. Musculoskeletal: Range of motion: intact in all extremities. 16:30 Reassessment: Patient is alert, oriented x 3, equal unlabored respirations, skin aa5 warm/dry/pink. 17:00 Reassessment: Patient is alert, oriented x 3, equal unlabored respirations, skin aa5 warm/dry/pink. 17:40 Reassessment: Patient is alert, oriented x 3, equal unlabored respirations, skin aa5 warm/dry/pink. Patient denies pain at this time. Vital Signs: 15:56 BP 129 / 76; Pulse 66; Resp 16 S; Temp 98.6(O); Pulse Ox 99% on R/A; Weight 113.4 kg aa5 (R); Height 6 ft. 1 in. (185.42 cm) (R); Pain 3/10; 16:30 BP 147 / 70; Pulse 66; Resp 16 S; Pulse Ox 99% on R/A; aa5 17:00 BP 140 / 72; Pulse 67; Resp 18 S; Temp 98.0(TE); Pulse Ox 99% on R/A; aa5 17:40 BP 157 / 83 Supine; Pulse 68; Resp 16 S; Pulse Ox 98% on R/A; aa5 17:42 BP 144 / 85 Sitting; Pulse 70; aa5 17:44 BP 112 / 68 Standing; Pulse 71; aa5 15:56 Body Mass Index 32.98 (113.40 kg, 185.42 cm) aa5 17:44 Pt denied dizziness during orthostatic VS. BOWLING ALLEY OPERATOR notified of findings. aa5 [place] Coma Score: 15:56 Eye Response: spontaneous(4). Verbal Response: oriented(5). Motor Response: obeys aa5 commands(6). Total: 15. Trauma Score (Adult): 15:56 Eye Response: spontaneous(1); Verbal Response: oriented(1); Motor Response: obeys aa5 commands(2); Systolic BP: > 89 mm Hg(4); Respiratory Rate: 10 to 29 per min(4); Comfort Score: 15; Trauma Score: 12 16:30 Eye Response: spontaneous(1); Verbal Response: oriented(1); Motor Response: obeys aa5 commands(2); Systolic BP: > 89 mm Hg(4); Respiratory Rate: 10 to 29 per min(4); [place] Score: 15; Trauma Score: 12 17:00 Eye Response: spontaneous(1); Verbal Response: oriented(1); Motor Response: obeys aa5 commands(2); Systolic BP: > 89 mm Hg(4); Respiratory Rate: 10 to 29 per min(4); [place] Score: 15; Trauma Score: 12 17:44 Eye Response: spontaneous(1); Verbal Response: oriented(1); Motor Response: obeys aa5 commands(2); Systolic BP: > 89 mm Hg(4); Respiratory Rate: 10 to 29 per min(4); [place] Score: 15; Trauma Score: 12 ED Course: 15:56 Patient arrived in ED. aa5 15:56 Arm band placed on Patient placed in an exam room, on a stretcher. aa5 15:56 Patient has correct armband on for positive identification. Bed in low position. Call aa5 light in reach. Side rails up X2. 15:58 Triage completed. aa5 15:58 Patient maintains SpO2 saturation greater than 95% on room air. Thermoregulation: warm aa5 blanket given to patient. 15:59 Chacorta Jose NP is PHCP. pm1 15:59 Ivan Duarte MD is Attending Physician. pm1 16:08 Fadia Thompson, SUNITA is Primary Nurse. aa5 16:24 CT Head Brain wo Cont In Process Unspecified. EDMS 17:00 Assist provider with laceration repair on forehead using sutures and steri strips . Set aa5 up tray. Performed by Chacorta Jose NP Patient tolerated well. steri strips applied by BOWLING ALLEY OPERATOR. 17:50 Patient did not have IV access during this emergency room visit. aa5 Administered Medications: 16:45 Drug: Tetanus-Diphtheria Toxoid Adult 0.5 ml {Metal Finish Inspector: Ping Communication. Exp: aa5 05/04/2020. Lot #: [id number]. } Route: IM; Site: right deltoid; 17:00 Follow up: Response: No adverse reaction aa5 17:00 Drug: Lidocaine (1 %) 5 ml {Note: administered by BOWLING ALLEY OPERATOR to forehead during laceration aa5 repair.} Volume: 5 ml; Route: Infiltration; Intake: 17:50 PO: 0ml; Total: 0ml. aa5 Outcome: 17:46 Discharge ordered by MD. pm1 17:46 Patient's length of stay was not longer than 2 hours. aa5 17:50 Discharged to home via wheelchair, with family. aa5 17:50 Condition: stable aa5 17:50 Discharge instructions given to patient, family, Instructed on discharge instructions, follow up and referral plans. Demonstrated understanding of instructions, follow-up care. 17:50 Instructed on discharge instructions, follow up and referral plans. Demonstrated aa5 understanding of instructions, follow-up care. 18:09 Patient left the ED. aa5 Signatures: Dispatcher [employer] EDFadia Zapien RN RN aa5 Chacorta Jose NP BOWLING ALLEY OPERATOR pm1 Corrections: (The following items were deleted from the chart) 16:09 15:46 Arm band placed on Patient placed in an exam room, on a stretcher, aa5 aa5 16:20 15:56 Transition of care: patient was not received from another setting of care. aa5 aa5 18:15 16:16 Triage completed. aa5 aa5 18:20 17:50 No provider procedures requiring assistance completed. aa5 aa5 18:20 17:00 Assist provider with laceration repair on forehead using sutures and steri strips aa5 . Set up tray. Performed by Chacorta Jose NP Patient tolerated well. steri strips applied by LEW aa5
--- NOTE | 2018-07-21 17:47 | EDPHYS ---
Physician Documentation [facility] Name: Dayton Grijalva Age: 57 yrs Sex: Male : 1960 Arrival Date: 07/21/2018 Time: 15:56 Bed 18 Private MD: ED Physician Ivan Duarte HPI: 07/21 16:11 This 57 yrs old Male presents to ER via Unassigned with complaints of Fall pm1 Injury. 16:11 Details of fall: The patient fell from an upright position, while standing. Onset: The pm1 symptoms/episode began/occurred just prior to arrival. Associated injuries: The patient sustained injury to the head, laceration, 3 cm(s), of the forehead, abrasion to left side of nose. Patient was at dialysis treatment today. Completed dialysis. Prior to discharge, orthostatics performed and his knees buckled and he hit his head. No LOC. No neck pain. Historical: - Allergies: 15:56 No Known Allergies; aa5 - PMHx: 15:56 Diabetes - IDDM; Hypertension; aa5 - PSHx: 15:56 left foot sx; aa5 - Immunization history:: Flu vaccine is up to date. - Social history:: Smoking status: Patient/guardian denies using tobacco. - Immunization history: Last tetanus immunization: unknown. - Ebola Screening: : No symptoms or risks identified at this time. ROS: 16:11 Constitutional: Negative for fever, chills, and weight loss, Eyes: Negative for injury, pm1 pain, redness, and discharge, ENT: Negative for injury, pain, and discharge, Neck: Negative for injury, pain, and swelling, Cardiovascular: Negative for chest pain, palpitations, and edema, Respiratory: Negative for shortness of breath, cough, wheezing, and pleuritic chest pain, Abdomen/GI: Negative for abdominal pain, nausea, vomiting, diarrhea, and constipation, Back: Negative for injury and pain, : Negative for injury, bleeding, discharge, and swelling, MS/Extremity: Negative for injury and deformity. 16:11 Neuro: Negative for headache, weakness, numbness, tingling, and seizure. 16:11 Skin: Positive for laceration(s), of the forehead. Exam: 16:11 Constitutional: This is a well developed, well nourished patient who is awake, alert, pm1 and in no acute distress. Eyes: Pupils equal round and reactive to light, extra-ocular motions intact. Lids and lashes normal. Conjunctiva and sclera are non-icteric and not injected. Cornea within normal limits. Periorbital areas with no swelling, redness, or edema. ENT: Nares patent. No nasal discharge, no septal abnormalities noted. Tympanic membranes are normal and external auditory canals are clear. Oropharynx with no redness, swelling, or masses, exudates, or evidence of obstruction, uvula midline. Mucous membranes moist. Neck: Trachea midline, no thyromegaly or masses palpated, and no cervical lymphadenopathy. Supple, full range of motion without nuchal rigidity, or vertebral point tenderness. No Meningismus. Chest/axilla: Normal chest wall appearance and motion. Nontender with no deformity. No lesions are appreciated. Cardiovascular: Regular rate and rhythm with a normal S1 and S2. No gallops, murmurs, or rubs. Normal PMI, no JVD. No pulse deficits. Respiratory: Lungs have equal breath sounds bilaterally, clear to auscultation and percussion. No rales, rhonchi or wheezes noted. No increased work of breathing, no retractions or nasal flaring. Abdomen/GI: Soft, non-tender, with normal bowel sounds. No distension or tympany. No guarding or rebound. No evidence of tenderness throughout. Back: No spinal tenderness. No costovertebral tenderness. Full range of motion. 16:11 Head/face: Noted is no obvious of injury or deformity except a laceration(s), 3 cm(s), of the forehead. 16:11 Skin: Appearance: normal except for affected area, injury, laceration(s), the wound is approximately 3 cm(s), of the forehead. 16:11 Neuro: Orientation: is normal, Motor: is normal, moves all fours, Sensation: is normal, no obvious gross deficits. Vital Signs: 15:56 BP 129 / 76; Pulse 66; Resp 16 S; Temp 98.6(O); Pulse Ox 99% on R/A; Weight 113.4 kg aa5 (R); Height 6 ft. 1 in. (185.42 cm) (R); Pain 3/10; 16:30 BP 147 / 70; Pulse 66; Resp 16 S; Pulse Ox 99% on R/A; aa5 17:00 BP 140 / 72; Pulse 67; Resp 18 S; Temp 98.0(TE); Pulse Ox 99% on R/A; aa5 17:40 BP 157 / 83 Supine; Pulse 68; Resp 16 S; Pulse Ox 98% on R/A; aa5 17:42 BP 144 / 85 Sitting; Pulse 70; aa5 17:44 BP 112 / 68 Standing; Pulse 71; aa5 15:56 Body Mass Index 32.98 (113.40 kg, 185.42 cm) aa5 17:44 Pt denied dizziness during orthostatic VS. TEACHER DANCING notified of findings. aa5 Comfort Coma Score: 15:56 Eye Response: spontaneous(4). Verbal Response: oriented(5). Motor Response: obeys aa5 commands(6). Total: 15. Trauma Score (Adult): 15:56 Eye Response: spontaneous(1); Verbal Response: oriented(1); Motor Response: obeys aa5 commands(2); Systolic BP: > 89 mm Hg(4); Respiratory Rate: 10 to 29 per min(4); Comfort Score: 15; Trauma Score: 12 16:30 Eye Response: spontaneous(1); Verbal Response: oriented(1); Motor Response: obeys aa5 commands(2); Systolic BP: > 89 mm Hg(4); Respiratory Rate: 10 to 29 per min(4); Comfort Score: 15; Trauma Score: 12 17:00 Eye Response: spontaneous(1); Verbal Response: oriented(1); Motor Response: obeys aa5 commands(2); Systolic BP: > 89 mm Hg(4); Respiratory Rate: 10 to 29 per min(4); Comfort Score: 15; Trauma Score: 12 17:44 Eye Response: spontaneous(1); Verbal Response: oriented(1); Motor Response: obeys aa5 commands(2); Systolic BP: > 89 mm Hg(4); Respiratory Rate: 10 to 29 per min(4); [place] Score: 15; Trauma Score: 12 Laceration: 17:27 Wound Repair of 3cm ( 1.2in ) subcutaneous laceration to forehead. Linear shaped.. pm1 Distal neuro/vascular/tendon intact. Anesthesia: Local anesthetic administered with 3 mls of 1% lidocaine. Wound prep: Extensive cleansing with hibiclenz by nurse, Wound irrigation with saline by nurse, Wound explored extensively, Copious irrigation. Skin closed with 6 5-0 Prolene using simple sutures and sterile technique. Patient tolerated well. MDM: 16:00 Patient medically screened. pm1 17:27 Data reviewed: vital signs. Data interpreted: Pulse oximetry: on room air is 99 %. pm1 Interpretation: normal. Counseling: I had a detailed discussion with the patient and/or guardian regarding: the historical points, exam findings, and any diagnostic results supporting the discharge/admit diagnosis, radiology results, the need for outpatient follow up, suture removal in 4-5 days, to return to the emergency department if symptoms worsen or persist or if there are any questions or concerns that arise at home. 07/21 16:10 Order name: CT Head Brain wo Cont; Complete Time: 17:25 pm1 07/21 16:10 Order name: Prolene, Sutures; Complete Time: 16:55 pm1 07/21 16:10 Order name: Dressing - Wound; Complete Time: 16:55 pm1 07/21 16:10 Order name: Gloves, Sterile; Complete Time: 16:55 pm1 07/21 16:10 Order name: Setup Suture Tray; Complete Time: 16:55 pm1 07/21 16:10 Order name: Orthostatic Blood Pressure; Complete Time: 17:36 pm1 Administered Medications: 16:45 Drug: Tetanus-Diphtheria Toxoid Adult 0.5 ml {Product Design Specialist: [employer]. Exp: aa5 05/04/2020. Lot #: [id number]. } Route: IM; Site: right deltoid; 17:00 Follow up: Response: No adverse reaction aa 17:00 Drug: Lidocaine (1 %) 5 ml {Note: administered by TEACHER DANCING to forehead during laceration aa5 repair.} Volume: 5 ml; Route: Infiltration; Disposition: 07/22 16:38 Co-signature as Attending Physician, Ivan Duarte MD. Disposition: 07/21/18 17:46 Discharged to Home. Impression: Superficial injury of head, Laceration without foreign body of unspecified part of head - forehead. - Condition is Stable. - Discharge Instructions: Head Injury, Adult, Facial Laceration, Stitches, Corinne, or Adhesive Wound Closure. - Medication Reconciliation Form, Thank You Letter, Antibiotic Education, Prescription Opioid Use form. - Follow up: Emergency Department; When: As needed; Reason: Worsening of condition. Follow up: Private Physician; When: 2 - 3 days; Reason: Recheck today's complaints, Continuance of care, Re-evaluation by your physician. - Problem is new. - Symptoms have improved. Signatures: Dispatcher [employer] EDMS Fadia Thompson RN RN aa5 Chacorta Jose NP TEACHER DANCING pm1 Ivan Duarte MD MD gs Corrections: (The following items were deleted from the chart) 07/21 18:09 17:46 07/21/2018 17:46 Discharged to Home. Impression: Superficial injury of head; aa5 Laceration without foreign body of unspecified part of head - forehead. Condition is Stable. Forms are Medication Reconciliation Form, Thank You Letter, Antibiotic Education, Prescription Opioid Use. Follow up: Emergency Department; When: As needed; Reason: Worsening of condition. Follow up: Private Physician; When: 2 - 3 days; Reason: Recheck today's complaints, Continuance of care, Re-evaluation by your physician. Problem is new. Symptoms have improved. pm1
[2018-07-21 18:20] VITALS: TEMP 98
[2018-07-21 18:21] VITALS: O2SAT 98
[2018-07-21 18:24] VITALS: BP 112/68
== END 2018-07-21 18:09 | disposition home or self-care (01) ==
LOC: ER 15:53
PROC: 0JQ10ZZ Repair Face Subcutaneous Tissue and Fascia, Open Approach (ICD-10-PCS; principal; 2018-07-21)
DX: S01.81XA Laceration without foreign body of other part of head, initial encounter (principal); W19.XXXA Unspecified fall, initial encounter; Y93.89 Activity, other specified; Y92.89 Other specified places as the place of occurrence of the external cause; Z23 Encounter for immunization; Z99.2 Dependence on renal dialysis; I10 Essential (primary) hypertension
CPT/HCPCS: 70450; 90471; 90714; 99284

== ENCOUNTER 2018-07-26 15:06 | Emergency (ER) | payer OTHER ==
--- NOTE | 2018-07-26 15:30 | ER ---
Nurse's Notes [facility] Name: Dayton Grijalva Age: 57 yrs Sex: Male : 1960 Arrival Date: 07/26/2018 Time: 15:10 Bed 11 Private MD: Tito Duval E Diagnosis: Encounter for removal of sutures Presentation: 07/26 15:14 Presenting complaint: Sutures to left forehead 5 days ago, here for removal. Transition hb of care: patient was not received from another setting of care. Onset of symptoms was July 26, 2018. Risk Assessment: Do you want to hurt yourself or someone else? Patient reports no desire to harm self or others. Care prior to arrival: None. 15:14 Method Of Arrival: Wheelchair hb 15:14 Acuity: SAMARA 4 hb 15:45 Initial Sepsis Screen: Does the patient meet any 2 criteria? No. Patient's initial ss sepsis screen is negative. Does the patient have a suspected source of infection? No. Patient's initial sepsis screen is negative. Historical: - Allergies: 15:16 No Known Allergies; hb - Home Meds: 15:16 amlodipine 10 mg tab 1 tab once daily [Active]; carvedilol 12.5 mg Oral tab 1 tab 2 hb times per day [Active]; furosemide 40 mg Oral tab 1 tab once daily [Active]; gabapentin 300 mg Oral cap 1 cap daily [Active]; glipizide 10 mg Oral tab 1 tab 2 times per day [Active]; hydralazine 25 mg Oral tab 1 tab 2 times per day [Active]; spironolactone 25 mg Oral tab 1 tab once daily [Active]; - PMHx: 15:16 Diabetes - IDDM; Hypertension; hb - PSHx: 15:16 left foot sx; hb - Immunization history:: Adult Immunizations up to date. - Social history:: Smoking status: Patient/guardian denies using tobacco. - Ebola Screening: : No symptoms or risks identified at this time. Screenin:42 Abuse screen: Denies threats or abuse. Denies injuries from another. Nutritional ss screening: No deficits noted. Tuberculosis screening: Never had TB. Fall Risk None identified. Assessment: 15:42 General: Appears in no apparent distress. comfortable, Behavior is calm, cooperative. ss Pain: Denies pain. Neuro: Level of Consciousness is awake, alert, obeys commands, Oriented to person, place, time, situation. Respiratory: Airway is patent Respiratory effort is even, unlabored. EENT: Nares are clear. Derm: Skin is intact, is healthy with good turgor, Skin is pink, warm \T\ dry. normal. Vital Signs: 15:15 BP 138 / 75; Pulse 81; Resp 18; Temp 98.3; Pulse Ox 100% on R/A; Weight 105.23 kg; hb Height 5 ft. 10 in. (177.80 cm); Pain 0/10; 15:15 Body Mass Index 33.29 (105.23 kg, 177.80 cm) hb ED Course: 15:10 Patient arrived in ED. mr 15:10 Tito Duval MD is Private Physician. mr 15:15 Triage completed. hb 15:16 Arm band placed on right wrist. hb 15:17 Cira Worrell FNP-C is [facility]. kb 15:17 Cristofer Huynh MD is Attending Physician. kb 15:29 Tito Duval MD is Referral Physician. kb 15:42 Patient has correct armband on for positive identification. Bed in low position. Call ss light in reach. Adult w/ patient. 15:42 No provider procedures requiring assistance completed. Patient did not have IV access ss during this emergency room visit. Wound care: cleaned incision area with NS and sterile gauze. Pt tolerated well. Steri strips applied. Administered Medications: No medications were administered Outcome: 15:29 Discharge ordered by MD. kb 15:42 Discharged to home via wheelchair, with family. ss 15:42 Condition: good 15:42 Discharge instructions given to patient, family, Instructed on discharge instructions, follow up and referral plans. Demonstrated understanding of instructions, follow-up care. 15:45 Patient left the ED. ss Signatures: Cira Worrell FNP-C FNP-Nava Destini Caballero mr Alix Lopez RN RN Norma Damian RN RN
--- NOTE | 2018-07-26 15:30 | EDPHYS ---
Physician Documentation [facility] Name: Dayton Grijalva Age: 57 yrs Sex: Male : 1960 Arrival Date: 07/26/2018 Time: 15:10 Bed 11 Private MD: Tito Duval E ED Physician Cristofer Huynh HPI: 07/26 15:23 This 57 yrs old Male presents to ER via Wheelchair with complaints of Suture kb Removal. 15:23 The patient has sutures on the forehead. Previous treatment: The patient was initially kb treated 5 day(s) ago, the care was rendered at [facility], Treatment type: The patient's original treatment included sutures. Sutures/reggie progress: The patient has no c/o's. The wound is well-healing with no redness, swelling, discharge, or dehiscence reported. The patient has not experienced similar symptoms in the past. The patient has not recently seen a physician. Historical: - Allergies: 15:16 No Known Allergies; hb - Home Meds: 15:16 amlodipine 10 mg tab 1 tab once daily [Active]; carvedilol 12.5 mg Oral tab 1 tab 2 hb times per day [Active]; furosemide 40 mg Oral tab 1 tab once daily [Active]; gabapentin 300 mg Oral cap 1 cap daily [Active]; glipizide 10 mg Oral tab 1 tab 2 times per day [Active]; hydralazine 25 mg Oral tab 1 tab 2 times per day [Active]; spironolactone 25 mg Oral tab 1 tab once daily [Active]; - PMHx: 15:16 Diabetes - IDDM; Hypertension; hb - PSHx: 15:16 left foot sx; hb - Immunization history:: Adult Immunizations up to date. - Social history:: Smoking status: Patient/guardian denies using tobacco. - Ebola Screening: : No symptoms or risks identified at this time. ROS: 15:22 Constitutional: Negative for fever, chills, and weight loss, Cardiovascular: Negative kb for chest pain, palpitations, and edema, Respiratory: Negative for shortness of breath, cough, wheezing, and pleuritic chest pain, Abdomen/GI: Negative for abdominal pain, nausea, vomiting, diarrhea, and constipation, MS/Extremity: Negative for injury and deformity, Neuro: Negative for headache, weakness, numbness, tingling, and seizure. 15:22 Skin: Positive for of the forehead, sutures in place. Exam: 15:22 Constitutional: This is a well developed, well nourished patient who is awake, alert, kb and in no acute distress. Head/Face: Normocephalic, atraumatic. Chest/axilla: Normal chest wall appearance and motion. Nontender with no deformity. No lesions are appreciated. Cardiovascular: Regular rate and rhythm with a normal S1 and S2. No gallops, murmurs, or rubs. Normal PMI, no JVD. No pulse deficits. Respiratory: Lungs have equal breath sounds bilaterally, clear to auscultation and percussion. No rales, rhonchi or wheezes noted. No increased work of breathing, no retractions or nasal flaring. Abdomen/GI: Soft, non-tender, with normal bowel sounds. No distension or tympany. No guarding or rebound. No evidence of tenderness throughout. MS/ Extremity: Pulses equal, no cyanosis. Neurovascular intact. Full, normal range of motion. Neuro: Awake and alert, GCS 15, oriented to person, place, time, and situation. Cranial nerves II-XII grossly intact. Motor strength 5/5 in all extremities. Sensory grossly intact. Cerebellar exam normal. Normal gait. 15:22 Skin: Wound recheck: Suture laceration closure: the wound is healing well, the edges are well approximated, no evidence of dehiscence, no drainage, no erythema, no swelling. Vital Signs: 15:15 BP 138 / 75; Pulse 81; Resp 18; Temp 98.3; Pulse Ox 100% on R/A; Weight 105.23 kg; hb Height 5 ft. 10 in. (177.80 cm); Pain 0/10; 15:15 Body Mass Index 33.29 (105.23 kg, 177.80 cm) hb Procedures: 15:23 Suture/Staple removal: Removed 6 sutures, from forehead, site appears well healed, kb Patient tolerated well. MDM: 15:17 Patient medically screened. kb 15:21 Data reviewed: vital signs, nurses notes. Data interpreted: Pulse oximetry: on room air kb is 100 %. Interpretation: normal. Counseling: I had a detailed discussion with the patient and/or guardian regarding: the historical points, exam findings, and any diagnostic results supporting the discharge/admit diagnosis, the need for outpatient follow up, a family practitioner, to return to the emergency department if symptoms worsen or persist or if there are any questions or concerns that arise at home. Administered Medications: No medications were administered Disposition: 16:31 Co-signature as Attending Physician, Cristofer Huynh MD. rn Disposition: 07/26/18 15:29 Discharged to Home. Impression: Encounter for removal of sutures. - Condition is Stable. - Discharge Instructions: Suture Removal, Care After. - Medication Reconciliation Form, Thank You Letter, Antibiotic Education, Prescription Opioid Use form. - Follow up: Emergency Department; When: As needed; Reason: Worsening of condition. Follow up: Tito Duavl MD; When: 2 - 3 days; Reason: Recheck today's complaints, Continuance of care, Re-evaluation by your physician. Signatures: Cira Worrell, CABIN OUTFITTER-C CABIN OUTFITTER-Ckb Cristofer Huynh MD MD rn Smirch, Shelby, RN RN ss Baxter, Heather, RN RN Corrections: (The following items were deleted from the chart) 15:45 15:29 07/26/2018 15:29 Discharged to Home. Impression: Encounter for removal of ss sutures. Condition is Stable. Forms are Medication Reconciliation Form, Thank You Letter, Antibiotic Education, Prescription Opioid Use. Follow up: Emergency Department; When: As needed; Reason: Worsening of condition. Follow up: Tito Duval; When: 2 - 3 days; Reason: Recheck today's complaints, Continuance of care, Re-evaluation by your physician. kb
--- OUTSIDE RECORDS SUMMARY | 2018-07-26 16:55 | XMS REPORT | Clinical Summary ---
:1960 Author Organization [facility] Address [address] [place] [address] Care Team Providers Name Role Phone Tito [...] Encounters Date Type Specialty Care Team Description 07/26/2018 Documentation Transplant Alena Patel Kidney Eval (emailed/mailed cardiology itinerary ) 07/26/2018 Documentation Transplant Alean Patel Kidney Eval (Emailed/mailed Day 03/08 Itinerary) 07/25/2018 Telephone Transplant Alena Patel Appointment (Called pt deuce Weller re: day 2/3 kidney eval appts. Pt avail on / for August 2018.); Appointment (Sp w/deuce Weller and he confirmed day 2/3 on August 08 and August 22, 2018. ) 07/03/2018 Orders Only Transplant Tod Marquez RN ESRD (end stage renal disease) ([facility]) (Primary Dx) 04/13/2018 Hospital Encounter Transplant Nilson Toth MD 03/21/2018 Hospital Encounter Transplant Sonal Trinidad, ESRD (end stage renal MD disease) ([facility]) 03/21/2018 Hospital Encounter Transplant Dewayne Elliott, ESRD (end stage renal MD disease) ([facility]) (Primary Dx) 03/21/2018 Hospital Encounter Transplant Nilson Toth MD 03/21/2018 Hospital Encounter Transplant Nilson Toth MD Yi, Stephanie Grace, MD 03/21/2018 Documentation Transplant SarwatNan Consent Forms ( Scanned Consent For Kidney Transplant Evaluation, Pre Txp Education & MADI forms in Media. 03-21-2018) 03/21/2018 Telephone Transplant Jackie Kelly Pre-kidney full eval day 1 03/20/2018 Documentation Transplant Shahnaz Cornejo TXP- [employer]- RENAL TXP EVAL APPVL 03/03/2018 Telephone Transplant Xavier Velez Referral - Kidney Txp SUNITA Shaver after 07/25/2017 Social History Tobacco Use Types Packs/Day Years [...] Taken Blood Pressure 99/55 03/21/2018 9:37 AM DIGESTER OPERATOR HELPER Pulse 69 03/21/2018 9:37 AM DIGESTER OPERATOR HELPER Temperature 37 C (98.6 F) 03/21/2018 9:37 AM DIGESTER OPERATOR HELPER Respiratory Rate 22 03/21/2018 9:37 AM DIGESTER OPERATOR HELPER Oxygen Saturation 98% 03/21/2018 9:37 AM DIGESTER OPERATOR HELPER Inhaled Oxygen Concentration - - Weight 113 kg (249 lb 8 oz) 03/21/2018 9:37 AM DIGESTER OPERATOR HELPER Height 182.9 cm (6') 03/21/2018 9:37 AM DIGESTER OPERATOR HELPER Body Mass Index 33.84 03/21/2018 9:37 AM DIGESTER OPERATOR HELPER Plan of Treatment Date Type Specialty Care Team Description 08/08/2018 Office Visit Transplant Sonal Trinidad MD [address] [facility] [address] [place] [address] [phone] 08/08/2018 Office Visit Transplant Dewayne Elliott MD [address] [facility] [address] [place] [address] [phone] 08/08/2018 Office Visit Transplant Shahnaz Cornejo 08/08/2018 Appointment Radiology Sonal Trinidad MD [address] [place] [address] [place] [address] [phone] 08/08/2018 Appointment Radiology Sonal Trinidad MD [address] [place] [address] [place] [address] [phone] 08/08/2018 Appointment Procedural Cardiology Sonal Trinidad MD [address] [place] [address] [place] [address] [phone] 08/08/2018 Office Visit Transplant Sonal Trinidad MD [address] [place] [address] [place] [address] [phone] 08/08/2018 Appointment Radiology Sonal Trinidad MD [address] [place] [address] [place] [address] [phone] 08/08/2018 Appointment Procedural Cardiology Sonal Trinidad MD [address] [place] [address] [place] [address] [phone] 08/08/2018 Appointment Radiology Sonal Trinidad MD [address] [place] [address] [place] [address] [phone] Health Maintenance Due Date Last Done Comments COLON CANCER SCREENING 11/11/2009 SHINGLES VACCINES (#1) 11/11/2009 INFLUENZA VACCINE 10/05/2018 Procedures Procedure Name Priority Date/Time Associated Comments Diagnosis GRAM STAIN Routine 03/21/2018 12:50 Results for this PM DIGESTER OPERATOR HELPER procedure are in the results section. URINE CULTURE Routine 03/21/2018 12:50 Results for this PM DIGESTER OPERATOR HELPER procedure are in the results section. HEPATITIS A ANTIBODY IGM Routine 03/21/2018 11:24 Results for this AM DIGESTER OPERATOR HELPER procedure are in the results section. ESTIMATED GFR Routine 03/21/2018 11:24 Results for this AM DIGESTER OPERATOR HELPER procedure are in the results section. PROSTATE SPECIFIC Routine 03/21/2018 11:24 ESRD (end stage Results for this ANTIGEN AM DIGESTER OPERATOR HELPER renal disease) procedure are in ([facility]) the results section. SERUM ELECTROPHORESIS Routine 03/21/2018 11:24 ESRD (end stage Results for this AM DIGESTER OPERATOR HELPER renal disease) procedure are in ([facility]) the results section. C-PEPTIDE Routine 03/21/2018 11:24 ESRD (end stage Results for this AM DIGESTER OPERATOR HELPER renal disease) procedure are in ([facility]) the results section. TB T-SPOT Routine 03/21/2018 11:24 ESRD (end stage Results for this AM DIGESTER OPERATOR HELPER renal disease) procedure are in ([facility]) the results section. NICOTINE AND Routine 03/21/2018 11:24 ESRD (end stage Results for this METABOLITES, SERUM AM DIGESTER OPERATOR HELPER renal disease) procedure are in ([facility]) the results section. URINE DRUGS OF ABUSE Routine 03/21/2018 11:24 ESRD (end stage Results for this SCREEN AM DIGESTER OPERATOR HELPER renal disease) procedure are in ([facility]) the results section. ABORH - TRANSPLANT Routine 03/21/2018 11:24 ESRD (end stage Results for this AM DIGESTER OPERATOR HELPER renal disease) procedure are in ([facility]) the results section. PARTIAL THROMBOPLASTIN Routine 03/21/2018 11:24 ESRD (end stage Results for this TIME (PTT) AM DIGESTER OPERATOR HELPER renal disease) procedure are in ([facility]) the results section. PROTHROMBIN TIME WITH Routine 03/21/2018 11:24 ESRD (end stage Results for this INR AM DIGESTER OPERATOR HELPER renal disease) procedure are in ([facility]) the results section. HC COMPLETE BLD COUNT Routine 03/21/2018 11:24 ESRD (end stage Results for this W/AUTO DIFF AM DIGESTER OPERATOR HELPER renal disease) procedure are in ([facility]) the results section. SYPHILIS TREPONEMAL IGG Routine 03/21/2018 11:24 ESRD (end stage Results for this AM DIGESTER OPERATOR HELPER renal disease) procedure are in ([facility]) the results section. HEPATITIS C ANTIBODY Routine 03/21/2018 11:24 ESRD (end stage Results for this AM DIGESTER OPERATOR HELPER renal disease) procedure are in (HCC) the results section. HEPATITIS B SURFACE AB, Routine 03/21/2018 11:24 ESRD (end stage Results for this QUANTITATIVE AM DIGESTER OPERATOR HELPER renal disease) procedure are in (HCC) the results section. HEPATITIS B SURFACE Routine 03/21/2018 11:24 ESRD (end stage Results for this ANTIGEN AM DIGESTER OPERATOR HELPER renal disease) procedure are in (HCC) the results section. HEPATITIS B SURFACE Routine 03/21/2018 11:24 ESRD (end stage Results for this ANTIBODY AM DIGESTER OPERATOR HELPER renal disease) procedure are in (HCC) the results section. HEPATITIS B CORE Routine 03/21/2018 11:24 ESRD (end stage Results for this ANTIBODY TOTAL AM DIGESTER OPERATOR HELPER renal disease) procedure are in (HCC) the results section. HEPATITIS A ANTIBODY Routine 03/21/2018 11:24 ESRD (end stage Results for this TOTAL AM DIGESTER OPERATOR HELPER renal disease) procedure are in (HCC) the results section. HIV AG/AB COMBINATION Routine 03/21/2018 11:24 ESRD (end stage Results for this AM DIGESTER OPERATOR HELPER renal disease) procedure are in ([facility]) the results section. URINALYSIS SCREEN AND Routine 03/21/2018 11:24 ESRD (end stage Results for this MICROSCOPY, WITH REFLEX AM DIGESTER OPERATOR HELPER renal disease) procedure are in TO CULTURE ([facility]) the results section. COMPREHENSIVE METABOLIC Routine 03/21/2018 11:24 ESRD (end stage Results for this PANEL AM DIGESTER OPERATOR HELPER renal disease) procedure are in ([facility]) the results section. after 07/25/2017 Results Gram stain (03/21/2018 12:50 PM DIGESTER OPERATOR HELPER) Gram stain result No WBC's or organisms seen. JOSE ENRIQUE ROBERSON Comment: HOSPITAL Specimen Information Specimen Source: Urine Specimen Site: Clean catch Specimen Urine Performing Organization Address City/[facility]/Zipcode Phone Number [facility] DEPARTMENT OF PATHOLOGY AND [address] [place] [phone] [address] Urine culture (03/21/2018 12:50 PM DIGESTER OPERATOR HELPER) Urine culture growth after 24 hours JOSE ENRIQUE ROBERSON isolate Comment: HOSPITAL Specimen Information Specimen Source: Urine Specimen Site: Clean catch Specimen Urine Performing Organization Address City/[facility]/Zipcode Phone Number [facility] DEPARTMENT OF PATHOLOGY AND [address] [place] [phone] [address] Syphilis treponemal IgG (03/21/2018 11:24 AM DIGESTER OPERATOR HELPER) Pathologist [facility] Syphilis Non-reactiveComment Non-reactive [facility] treponemal IgG : Non-reactive: No HOSPITAL serological evidence of Syphilis infection Specimen Serum Performing Organization Address City/[facility] Phone Number [facility] DEPARTMENT OF PATHOLOGY AND [address] [place] [phone] [address] Urinalysis screen and microscopy, with reflex to culture (03/21/2018 11:24 AM DIGESTER OPERATOR HELPER) Pathologist [facility] Specimen site Clean catch [facility] Color, UA Straw [facility] Appearance, UA Clear [facility] Specific gravity, 1.012 1.001 - 1.035 [facility] pH, UA 6.0 5.0 - 8.5 [facility] Protein, UA 3+ (A) Negative [facility] Glucose, UA 3+ (A) Negative [facility] Ketones, UA Negative Negative [facility] Bilirubin, UA Negative Negative [facility] Blood, UA Small (A) Negative [facility] Nitrite, UA Negative Negative [facility] Urobilinogen, UA <2.0 <2.0 [facility] Leukocyte esterase, Negative Negative [facility] WBC, UA 6 (H) 0 - 1 /HPF [facility] RBC, UA 1 0 - 5 /HPF [facility] Bacteria, UA Few None seen [facility] Yeast, UA None seen [facility] Yeast with None seen [facility] pseudohyphae, [facility] Hyaline casts, UA 3 /LPF [facility] Specimen Urine Performing Organization Address City/State/Zipcode Phone Number [facility] DEPARTMENT OF PATHOLOGY AND [address] [place] [phone] [address] Estimated GFR (03/21/2018 11:24 AM DIGESTER OPERATOR HELPER) [facility] Estimated GFR 6 (A) mL/min/1.73 [facility] Comment: HOSPITAL CatergoryUnitsInterpretation G1 >=90 Normal or high G2 60-89Mildly decreased [id number] to moderately decreased Q0v86-31Vafaodbhux to severely decreased G4 15-29Severely decreased G5 <15Kidney failure The eGFR was calculated using the Chronic Kidney Disease Epidemiology Collaboration (CKD-EPI) equation. Interpretation is based on recommendations of the National Kidney Foundation-Kidney Disease Outcomes Quality Initiative (NKF-KDOQI) published in 2014. Specimen Plasma specimen Performing Organization Address City/State/Zipcode Phone Number [facility] DEPARTMENT OF PATHOLOGY AND [address] [place] [address] HIV Ag/Ab combination (03/21/2018 11:24 AM DIGESTER OPERATOR HELPER) Pathologist [facility] HIV Ag/Ab combination Non-reactive Non-reactive [facility] Specimen Blood Performing Organization Address City/[facility]/Zipcode Phone Number [facility] DEPARTMENT OF PATHOLOGY AND [address] [place] [address] TB T-SPOT (03/21/2018 11:24 AM DIGESTER OPERATOR HELPER) TB T-SPOT SEE NOTE [facility] Comment: LAB T-SPOT TUBERCULOSIS Nil Control: 0 Panel A: [...] FOR USE WITH T=SPOT.TB TEST. Performed by: [facility] Molecular Tuberculosis Laboratory [facility] ([id number]) [place], [place] [address] Specimen Blood Performing Organization Address City/State/Zipcode Phone Number [facility] DEPARTMENT OF PATHOLOGY AND [address] [place] [address] GENOMIC MEDICINE [facility] Nicotine and metabolites, serum (03/21/2018 11:24 AM DIGESTER OPERATOR HELPER) Nicotine <2.0 0.0 - 1.9 [facility] ng/mL [facility] Cotinine <2.0 0.0 - 1.9 [facility] ng/mL HOSPITAL 9-PA-detgqqww SEE COMMENT 0.0 - 4.9 [facility] Comment: ng/mL [facility] This test was developed and its performance characteristics determined by the Department of Pathology and Genomic Medicine, [facility]. Serum nicotine and its metabolites cotinine and 5-VT-hfcvtrca are tested by HPLC tandem mass spectrometry. It has not been cleared or approved by FDA. The laboratory is regulated under CLIA as qualified to perform high-complexity testing. This test is used for clinical purposes. It should not be regarded as investigational or for research. Footnote--------- Effective as of 03/22/18, Diagnostic Immunology Laboratory at [facility] will remove 3-hydroxycotinine component in the Serum Nicotine and Metabolites test. The test will still analyze serum nicotine and its major metabolite, cotinine, which is the most sensitive marker to detect nicotine exposure. This change to include only nicotine and cotinine brings our testing in concordance with most other [facility], such as [facility] and [facility]. Specimen Blood Performing Organization Address City/State/Zipcode Phone Number [facility] DEPARTMENT OF PATHOLOGY AND [address] [place] [address] [address] Hepatitis B surface Ab, quantitative (03/21/2018 11:24 AM DIGESTER OPERATOR HELPER) Hepatitis B surface <3.10 IU/L [facility] Comment: The anti-HBs is less than 10 [...] Cellular and Tissue-Based Products (HCT/P). Performed by [facility], [address] [place] [address] [email or web address], Kevin Ram MD - Lab. Director Specimen Serum Performing Organization Address City/[facility]/Zipcode Phone Number [facility] [address] [place] [address] [facility] [address] [place] [address] Hepatitis C antibody (03/21/2018 11:24 AM DIGESTER OPERATOR HELPER) Hepatitis C Ab Non-reactive Non-reactive [facility] Specimen Blood Performing Organization Address City/[facility]/Zipcode Phone Number [facility] DEPARTMENT OF PATHOLOGY AND [address] [place] [address] Hepatitis A antibody IgM (03/21/2018 11:24 AM DIGESTER OPERATOR HELPER) Hepatitis A IgM Non-reactive Non-reactive [facility] Specimen Performing Organization Address City/[facility] Phone Number [facility] DEPARTMENT OF PATHOLOGY AND [address] [place] [address] Hepatitis A antibody total (03/21/2018 11:24 AM DIGESTER OPERATOR HELPER) Hepatitis A total Reactive (A) Non-reactive [facility] Comment: HOSPITAL Hepatitis A Total Antibody reactive. Hepatitis A IgM antibody will be performed and reported separately when completed. Specimen Blood Performing Organization Address City/[facility] Phone Number [facility] DEPARTMENT OF PATHOLOGY AND [address] [place] [address] ABORh - transplant (03/21/2018 11:24 AM DIGESTER OPERATOR HELPER) ABO grouping O [facility] Rh type POS [facility] Specimen Blood Performing Organization Address City/[facility]/Zipcode Phone Number [facility] DEPARTMENT OF PATHOLOGY AND [address] [place] [address] Hepatitis B core antibody total (03/21/2018 11:24 AM DIGESTER OPERATOR HELPER) Hepatitis B core Reactive (A) Non-reactive QUISPE ORTHODOXY total Ab HOSPITAL Specimen Blood Performing Organization Address City/[facility] Phone Number [facility] DEPARTMENT OF PATHOLOGY AND [address] [place] [phone] [place] [phone] C-peptide (03/21/2018 11:24 AM DIGESTER OPERATOR HELPER) [facility] C-peptide 24.1 (H) 1.1 - 4.4 ng/mL [facility] Specimen Plasma specimen Performing Organization Address City/[facility] Phone Number [facility] DEPARTMENT OF PATHOLOGY AND [address] [place] [phone] [place] [phone] Urine drugs of abuse screen (03/21/2018 11:24 AM DIGESTER OPERATOR HELPER) [facility] Amphetamine screen, Negative [place] urine [facility] Barbiturate screen, Negative [place] urine [facility] Benzodiazepine Negative [place] screen, urine [facility] Cannabinoid screen, Negative [place] urine [facility] Cocaine screen, urine Negative [facility] Methadone metabolite Negative [place] (EDDP), urine [facility] Opiates screen, urine Negative [facility] Oxycodone screen, Negative [place] urine [facility] Phencyclidine screen, Negative [place] urine [facility] Tricyclic screen, Negative [place] urine Comment: ORTHODOXY Drug screen minimum concentration of [facility] Vfbxaselvxrb0452 ng/mL Barbiturates 200 ng/mL Zjhekmlyyhnnnfg716 ng/mL Gsipohe290 ng/mL Wwpvjydms002 ng/mL Gdrbsvd494 ng/mL Kdhuqfalc913 ng/mL Phencyclidine 25 ng/mL Bwthdknnneah24 ng/mL Xsseptgdpp4187 ng/mL Negative test results indicates presumptive evidence of lack of clinically significant drug concentration in this urine specimen. Positive test results are presumptive evidence of clinically significant drug concentration in this urine specimen. Testing performed for medical purposes only. Specimen Urine Performing Organization Address City/[facility] Phone Number [facility] DEPARTMENT OF PATHOLOGY AND [address] [place] [phone] [place] [phone] Hepatitis B surface antibody (03/21/2018 11:24 AM DIGESTER OPERATOR HELPER) Pathologist [facility] Hepatitis B surface Non-reactive Non-reactive [facility] Specimen Blood Performing Organization Address City/[facility] Phone Number [facility] DEPARTMENT OF PATHOLOGY AND [address] [place] [phone] [place] [phone] Hepatitis B surface antigen (03/21/2018 11:24 AM DIGESTER OPERATOR HELPER) Pathologist [facility] Hepatitis B surface Non-reactive Non-reactive [facility] Specimen Blood Performing Organization Address City/[facility] Phone Number [facility] DEPARTMENT OF PATHOLOGY AND [address] [place] [phone] [place] [phone] Partial thromboplastin time, activated (03/21/2018 11:24 AM DIGESTER OPERATOR HELPER) Pathologist [facility] PTT 30.2 23.0 - 36.0 [facility] Comment: [facility] PTT therapeutic range for unfractionated heparin is 61.0-112.0 seconds which corresponds to Anti-Xa 0.3-0.7 U/ml. Specimen Blood Performing Organization Address City/[facility] Phone Number [facility] DEPARTMENT OF PATHOLOGY AND [address] [place] [phone] [place] [phone] Prothrombin time with INR (03/21/2018 11:24 AM DIGESTER OPERATOR HELPER) [facility] Prothrombin time 13.5 11.5 - 14.5 [facility] INR 1.1 [place] Comment: ORTHODOXY [facility] International Normalized Ratio (INR) is a therapeutic HOSPITAL monitoring tool for patients who are stable on oral anticoagulant therapy. An INR of 2.0-3.0 is suggested for deep vein thrombosis/pulmonary embolism. Specimen Blood Performing Organization Address City/[facility] Phone Number [facility] DEPARTMENT OF PATHOLOGY AND [address] [place] [phone] CBC with platelet and differential (03/21/2018 11:24 AM DIGESTER OPERATOR HELPER) [facility] WBC 11.03 (H) 4.50 - 11.00 [facility] RBC 4.46 4.40 - 6.00 [facility] HGB 12.8 (L) 14.0 - 18.0 [facility] g/dL [facility] HCT 39.5 (L) 41.0 - 51.0 % [facility] MCV 88.6 82.0 - 100.0 [facility] MCH 28.7 27.0 - 34.0 pg [facility] MCHC 32.4 31.0 - 37.0 [facility] g/dL [facility] RDW - SD 48.8 37.0 - 55.0 fL [facility] MPV 10.4 8.8 - 13.2 fL [facility] Platelet count 245 150 - 400 k/uL [facility] Nucleated RBC 0.00 /100 WBC [facility] Neutrophils 72.3 (H) 39.0 - 69.0 % [facility] Lymphocytes 13.2 (L) 25.0 - 45.0 % [facility] Monocytes 7.1 0.0 - 10.0 % [facility] Eosinophils 6.1 (H) 0.0 - 5.0 % [facility] Basophils 0.7 0.0 - 1.0 % [facility] Immature granulocytes 0.6Comment: 0.0 - 1.0 % [facility] "[facility] HOSPITAL granulocytes" (promyelocytes , myelocytes, metamyelocytes ) Specimen Blood Performing Organization Address City/State/Zipcode Phone Number [facility] DEPARTMENT OF PATHOLOGY AND [address] [place] [phone] GENOMIC MEDICINE [address] [address] Serum electrophoresis (03/21/2018 11:24 AM DIGESTER OPERATOR HELPER) Protein 7.6 6.3 - 8.3 [place] Comment: g/dL ORTHODOXY [place] 4.6-7.0 g/dL HOSPITAL 1 week 4.4-7.6 g/dL 7 months-1year5.1-7.3 g/dL 1-2 years5.6-7.5 g/dL >3 years6.0-8.0 g/dL 18-150 6.3-8.3 g/dL SPE albumin 4.44 4.00 - 5.30 [place] g/dL [facility] SPE alpha 1 0.20 0.10 - 0.25 [place] g/dL [facility] SPE alpha 2 1.00 (H) 0.58 - 0.84 [place] g/dL [facility] SPE beta 1.03 0.50 - 1.10 [place] g/dL [facility] SPE gamma 0.94 0.60 - 1.30 [place] g/dL [facility] SPE extended See Comment QUISPE interpretation Comment: ORTHODOXY Increased alpha-2 globulins may be due to increased haptoglobin in an HOSPITAL acute phase response or increased alpha-2 macroglobulin in diabetes mellitus. SPE interpretation See CommentComment: JOSE ENRIQUE Woods MD; KAROL Trinidad, PhD, [facility] MD Eduardo Specimen Serum Performing Organization Address [facility] Phone Number [facility] DEPARTMENT OF PATHOLOGY AND [address] [place] [phone] Prostate specific antigen (03/21/2018 11:24 AM DIGESTER OPERATOR HELPER) PSA 0.3 0.0 - 4.0 [facility] Comment: ng/mL HOSPITAL The ALIZA 8000 PSA immunoassay was used. Results obtained with different assay methods or kits should not be used interchangeably and may be different. Specimen Plasma specimen Performing Organization Address [facility] Phone Number [facility] DEPARTMENT OF PATHOLOGY AND [address] [place] [phone] Comprehensive metabolic panel (03/21/2018 11:24 AM DIGESTER OPERATOR HELPER) Sodium 130 (L) 135 - 148 [facility] mEq/L [facility] Potassium 4.9 3.5 - 5.0 [facility] mEq/L [facility] Chloride 90 (L) 98 - 112 mEq/L [facility] CO2 23 (L) 24 - 31 mEq/L [facility] Anion gap 17@ANIO (H) 7 - 15 mEq/L [facility] BUN 61 (H) 6 - 20 mg/dL [facility] Creatinine 9.17 (H) 0.70 - 1.20 [facility] mg/dL HOSPITAL Glucose 158 (H) 65 - 99 mg/dL [facility] Calcium 9.0 8.3 - 10.2 [facility] mg/dL HOSPITAL Protein 7.5 6.3 - 8.3 g/dL [facility] Comment: HOSPITAL [place] 4.6-7.0 g/dL 1 week 4.4-7.6 g/dL 7 months-1year5.1-7.3 g/dL 1-2 years5.6-7.5 g/dL >3 years6.0-8.0 g/dL 18-150 6.3-8.3 g/dL Albumin 3.3 (L) 3.5 - 5.0 g/dL [facility] A/G ratio 0.8 0.7 - 3.8 [facility] Alkaline phosphatase 105 40 - 129 U/L [facility] AST 15 10 - 50 U/L [facility] ALT 13 5 - 50 U/L [facility] Total bilirubin 0.3 0.0 - 1.2 [facility] mg/dL HOSPITAL Specimen Plasma specimen Performing Organization Address City/State/Zipcode Phone Number [facility] DEPARTMENT OF PATHOLOGY AND [address] [place] [address] GEN[address] [address] after 07/25/2017 Insurance Payer Benefit Plan / Subscriber ID Effective Phone Address Type Group Dates CIGNA CIGNA xxxxxxxxxxx 2018-Pres [facility] ent [facility] MEDICARE MEDICARE PART A xxxxxxxxxxx 2018-Pre [place] Medicare AND B sent (Home) [place] [id number] [place] [facility] [employer] Self [address] [place] [address] (Home) [place] [address] Advance Directives Patient has advance care planning documents on file. For more information, please contact:[address] [phone]
[2018-07-26 18:03] VITALS: BP 138/75; TEMP 98.3; O2SAT 100
== END 2018-07-26 15:45 | disposition home or self-care (01) ==
LOC: ER 15:06
DX: Z48.02 Encounter for removal of sutures (principal); E11.9 Type 2 diabetes mellitus without complications
CPT/HCPCS: 99283

== ENCOUNTER 2019-02-06 08:58 | Observation (INO) | payer OTHER ==
[2019-02-06] MEDS ORDERED: NA CHLORIDE 0.9% 0 ML ONE (09:18)
[2019-02-06 09:42] LABS: Absolute Lymphocytes (CBC) 1.6 K/uL (0.7-4.9); Basophils % 1.3 % (0-1.3); Hematocrit 41.9 % (39.6-49.0); Lymphocytes % 16.8 % (15.3-44.8); MPV 8.6 fL (7.6-11.3); RBC Red Blood Cell Count 4.96 M/uL (4.33-5.43)
--- NOTE | 2019-02-06 09:46 | RAD REPORT ---
EXAM DESCRIPTION: CT - Head Brain Wo Cont - 02/06/2019 9:39 am CLINICAL HISTORY: weakness, vomiting, hypotension Headache, drowsiness COMPARISON: Head Brain Wo Cont dated 07/21/2018; Head Brain Wo Cont dated 02/27/2018 TECHNIQUE: All CT scans are performed using dose optimization technique as appropriate and may inclu de automated exposure control or mA/KV adjustment according to patient size. FINDINGS: No intracranial hemorrhage, hydrocephalus or extra-axial fluid collection.No areas of brai n edema or evidence of midline shift. The paranasal sinuses and mastoids are clear. The calvarium is intact. Vertebral arteries are calcifi ed. IMPRESSION: No acute intracranial abnormality.
[2019-02-06 10:02] LABS: ALT/SGPT 18 U/L (12-78); AST/SGOT 12 U/L (15-37); Albumin 3.8 g/dL (3.4-5.0); Alkaline Phosphatase 126 U/L (45-117); BUN Blood Urea Nitrogen 41 mg/dL (7-18); Bicarbonate 28 mmol/L (21-32); Bilirubin Direct < 0.1 mg/dL (0-0.2); Bilirubin Total 0.4 mg/dL (0.2-1.0); Glucose Level 120 mg/dL (74-106); Lipase 1522 U/L (73-393); Protein, Total 8.4 g/dL (6.4-8.2); Sodium Level 138 mmol/L (136-145)
--- NOTE | 2019-02-06 10:12 | RAD REPORT ---
EXAM DESCRIPTION: CT - Abdomen Pelvis Wo Contrast - 02/06/2019 9:40 am CLINICAL HISTORY: Abdominal pain. vomiting, hypotension COMPARISON: Abdomen Pelvis Wo Contrast dated 11/25/2016 TECHNIQUE: CT imaging of the abdomen and pelvis was performed without contrast. Solid organ, bowel a nd vascular assessment is limited due to lack of IV and oral contrast. All CT scans are performed using dose optimization technique as appropriate and may include automated exposure control or mA/KV adjustment according to patient size. FINDINGS: The lower lung le are clear. The liver, spleen, pancreas, adrenal glands are within normal limits for a limited non-contrast exami nation.Punctate caliceal stones are present in both kidneys without hydronephrosis. No bowel obstruction, free air, free fluid or abscess. Moderate stool is present in the rectum. The a ppendix is normal. Bilateral fat containing inguinal hernias. The osseous structures are within normal limits. IMPRESSION: Punctate bilateral nephrolithiasis without hydronephrosis. A limited non-contrast examination was performed as detailed.
[2019-02-06 10:25] LABS: Anisocytosis 1+; Blood Morphology Comment NOTED (NOT SEEN); Platelet Estimate ADEQ; Urine White Blood Cell Casts OK
[2019-02-06 10:39] LABS: Urine Blood TRACE (NEG); Urine Glucose 2+ (NEG); Urine Protein 3+ (NEG)
--- NOTE | 2019-02-06 10:50 | RAD REPORT ---
EXAM DESCRIPTION: RAD - Chest Single View - 02/06/2019 9:34 am CLINICAL HISTORY: hypotension, ESRD Chest pain. COMPARISON: Chest Single View dated 03/01/2018; Chest Single View dated 02/27/2018; Chest Single Vie w dated 11/29/2016; CHEST SINGLE VIEW dated 11/24/2013 FINDINGS: Portable technique limits examination quality. The lungs are grossly clear. The heart is mildly enlarged in size with sternotomy wires present there No displaced fractures.
[2019-02-06 11:12] LABS: Urine Bacteria <20 /HPF (NONE SEEN); Urine Culture Reflex Order NOT NEEDED
--- NOTE | 2019-02-06 11:28 | EKG ---
Test Date: 2019-02-06 Test Time: 08:58:20 Professor Of Astronomy: LESLIE MEASUREMENT RESULTS: Intervals: Rate: 66 NC: 128 QRSD: 88 QT: 450 QTc: 471 [place]: P: 39 NC: 128 QRS: 13 T: 59 INTERPRETIVE STATEMENTS: Normal sinus rhythm Normal ECG Compared to ECG 02/27/2018 04:19:35 Myocardial infarct finding no longer present Prolonged QT interval no longer present Electronically Signed On 02-06-19 11:27:17 PUBLIC FINANCE SPECIALIST by Duglas Guzman
--- NOTE | 2019-02-06 11:29 | ER ---
Nurse's Notes [facility] Name: Dayton Grijalva Age: 58 yrs Sex: Male : 1960 Arrival Date: 02/06/2019 Time: 09:06 Bed 8 Private MD: Diagnosis: Syncope and collapse;Dehydration;Acute pancreatitis, unspecified Presentation: 02/06 08:54 Presenting complaint: EMS states: called out for generalized weakness, on scene pt was sv pale/cool/diaphoretic, AMS A\T\O x2, no palpable radial pulse, IV started and given NS bolus BP went up to 148/78 HR-65, last BP 113/40 98%. Pt reports having HD last night but normally has it in the afternoon. Transition of care: patient was not received from another setting of care. Onset of symptoms was February 06, 2019. Risk Assessment: Do you want to hurt yourself or someone else? Patient reports no desire to harm self or others. Initial Sepsis Screen: Does the patient meet any 2 criteria? No. Patient's initial sepsis screen is negative. Does the patient have a suspected source of infection? No. Patient's initial sepsis screen is negative. Care prior to arrival: Medication(s) given: Normal saline infusion, IV initiated. 20 GA, in the right antecubital area, Glucose check: 91. 08:54 Method Of Arrival: EMS: [facility] sv 08:54 Acuity: SAMARA 2 sv Triage Assessment: 08:55 General: Appears in no apparent distress. comfortable, Behavior is calm, cooperative, sv appropriate for age. Pain: Denies pain. Neuro: Level of Consciousness is awake, alert, obeys commands, Oriented to person, place, time, situation, Moves all extremities. Speech is normal, Reports weakness. Cardiovascular: Patient's skin is warm and dry. Pulses are 3+ in right radial artery Rhythm is sinus rhythm Chest pain is denied Dialysis shunt: in the left arm, with palpable thrill, no bleeding noted. Respiratory: Airway is patent Respiratory effort is even, unlabored, Respiratory pattern is regular, symmetrical. Derm: Skin is pink, warm \T\ dry. Musculoskeletal: Range of motion: intact in all extremities. Historical: - Allergies: 09:09 No Known Allergies; sv - Home Meds: 14:59 amlodipine 10 mg tab 1 tab once daily [Active]; carvedilol 12.5 mg Oral tab 1 tab 2 sg times per day [Active]; furosemide 40 mg Oral tab 1 tab once daily [Active]; gabapentin 300 mg Oral cap 1 cap daily [Active]; glipizide 10 mg Oral tab 1 tab 2 times per day [Active]; hydralazine 25 mg Oral tab 1 tab 2 times per day [Active]; spironolactone 25 mg Oral tab 1 tab once daily [Active]; - PMHx: 09:09 Diabetes - IDDM; Hypertension; HD-MWF; sv - PSHx: 09:09 left foot sx; triple bypass; sv - Immunization history:: Adult Immunizations up to date. - Social history:: Smoking status: Patient/guardian denies using tobacco. - Ebola Screening: : No symptoms or risks identified at this time. - Family history:: not pertinent. - Hospitalizations: : No recent hospitalization is reported. Screenin:10 Abuse screen: Denies threats or abuse. Denies injuries from another. Nutritional sv screening: No deficits noted. Tuberculosis screening: No symptoms or risk factors identified. Fall Risk None identified. Assessment: 09:30 Reassessment: Patient appears in no apparent distress at this time. No changes from sv previously documented assessment. Patient and/or family updated on plan of care and expected duration. Pain level reassessed. Patient is alert, oriented x 3, equal unlabored respirations, skin warm/dry/pink. 10:01 Reassessment: Patient appears in no apparent distress at this time. No changes from sv previously documented assessment. Patient and/or family updated on plan of care and expected duration. Pain level reassessed. Patient is alert, oriented x 3, equal unlabored respirations, skin warm/dry/pink. Pt unable to give urine sample at this time. Patient states feeling better. Patient states symptoms have improved. 10:27 Reassessment: Patient appears in no apparent distress at this time. No changes from sv previously documented assessment. Patient and/or family updated on plan of care and expected duration. Pain level reassessed. Patient is alert, oriented x 3, equal unlabored respirations, skin warm/dry/pink. 12:00 Reassessment: Patient appears in no apparent distress at this time. No changes from sv previously documented assessment. Patient and/or family updated on plan of care and expected duration. Pain level reassessed. Patient is alert, oriented x 3, equal unlabored respirations, skin warm/dry/pink. 13:30 Reassessment: Patient appears in no apparent distress at this time. No changes from sv previously documented assessment. Patient and/or family updated on plan of care and expected duration. Pain level reassessed. Patient is alert, oriented x 3, equal unlabored respirations, skin warm/dry/pink. 15:00 Reassessment: Patient appears in no apparent distress at this time. No changes from sv previously documented assessment. Patient and/or family updated on plan of care and expected duration. Pain level reassessed. Patient is alert, oriented x 3, equal unlabored respirations, skin warm/dry/pink. Vital Signs: 08:56 BP 126 / 75; Pulse 64; Resp 14; Temp 97.7; Pulse Ox 97% ; Pain 0/10; sv 10:01 BP 181 / 88; Pulse 65; Resp 13; Pulse Ox 98% ; sv 10:27 BP 178 / 91; Pulse 63; Resp 12; Pulse Ox 98% ; sv 11:00 BP 152 / 74; Pulse 62; Resp 12; Pulse Ox 97% ; sv 11:45 BP 176 / 88; Pulse 61; Resp 12; Pulse Ox 97% ; sv 12:30 BP 168 / 83; Pulse 63; Resp 12; Pulse Ox 98% ; sv 13:17 BP 172 / 91; Pulse 66; Resp 15; Pulse Ox 99% ; sv 13:58 BP 170 / 88; Pulse 70; Resp 16; Pulse Ox 97% ; sv 14:50 BP 162 / 72; Pulse 70; Resp 16; Pulse Ox 98% on R/A; sg ED Course: 08:30 No provider procedures requiring assistance completed. Patient admitted, IV remains in sg place. intact, No redness/swelling at site. 08:54 Maintain EMS IV. Dressing intact. Good blood return noted. Site clean \T\ dry. Gauge \T\ sv site: 20G R AC. 08:55 quality assurance monitor final on. Pulse ox on. NIBP on. sv 09:06 Patient arrived in ED. sv 09:06 Sonal Garcia, SUNITA is Primary Nurse. sv 09:06 Cristofer Huynh MD is Attending Physician. rn 09:08 Triage completed. sv 09:10 Arm band placed on. sv 09:10 Patient has correct armband on for positive identification. Bed in low position. Call sv light in reach. Side rails up X2. Adult w/ patient. 09:28 X-ray(s) taken. sv 09:31 Awaiting lab results, Awaiting radiology results. sv 09:33 XRAY Chest (1 view) In Process Unspecified. EDMS 09:44 CT Head Brain wo Cont In Process Unspecified. EDMS 09:44 CT Abd/Pelvis - Without Contrast In Process Unspecified. EDMS 10:26 CBC Smear Scan Sent. sv 10:27 Door closed. Warm blanket given. Head of bed elevated. sv 11:27 Clark Martinez is Hospitalizing Provider. rn 13:05 Awaiting bed assignment. sv Administered Medications: 09:29 Drug: NS 0.9% 250 ml Route: IV; Rate: 1 bolus; Site: right antecubital; sv 10:01 Follow up: Response: No adverse reaction; IV Status: Completed infusion; IV Intake: sv 250ml Intake: 10:01 IV: 250ml; Total: 250ml. sv Outcome: 11:27 Decision to Hospitalize by Provider. rn 15:16 Admitted to Tele accompanied by tech, via stretcher, room 406, with chart, Other Report sv called by Luis DORSEY 15:16 Condition: stable 15:16 Instructed on the need for admit. 15:17 Patient left the ED. sv Signatures: Dispatcher [employer] Sonal Cavazos RN RN sv Gay, Steven, RN RN sg Nieto, Roman, MD MD rn
--- NOTE | 2019-02-06 11:30 | EDPHYS ---
Physician Documentation [facility] Name: Dayton Grijalva Age: 58 yrs Sex: Male : 1960 Arrival Date: 02/06/2019 Time: 09:06 Bed 8 Private MD: ED Physician Cristofer Huynh HPI: 02/06 10:23 This 58 yrs old Male presents to ER via EMS with complaints of General rn Weakness. 10:23 Reports generalized weakness and fatigue, woke up like this, no focal complaints, rn reports last night was first time had dialysis in evening, came back feeling weak and felt like took off too much fluid, no fever/cough/sob/chest pain/abd pain/diarrhea. + vomited x 1 this AM. Glucose normal per EMS. EMS reported low BP, that improved with small amount of fluid in IV. Pt feels better. states got out of bed, lightheaded, and fell to ground, no LOC or head injury.. Onset: The symptoms/episode began/occurred this morning. Severity of symptoms: At their worst the symptoms were moderate in the emergency department the symptoms have improved. The patient has not experienced similar symptoms in the past. The patient has not recently seen a physician. Historical: - Allergies: 09:09 No Known Allergies; sv - Home Meds: 14:59 amlodipine 10 mg tab 1 tab once daily [Active]; carvedilol 12.5 mg Oral tab 1 tab 2 sg times per day [Active]; furosemide 40 mg Oral tab 1 tab once daily [Active]; gabapentin 300 mg Oral cap 1 cap daily [Active]; glipizide 10 mg Oral tab 1 tab 2 times per day [Active]; hydralazine 25 mg Oral tab 1 tab 2 times per day [Active]; spironolactone 25 mg Oral tab 1 tab once daily [Active]; - PMHx: 09:09 Diabetes - IDDM; Hypertension; HD-MWF; sv - PSHx: 09:09 left foot sx; triple bypass; sv - Immunization history:: Adult Immunizations up to date. - Social history:: Smoking status: Patient/guardian denies using tobacco. - Ebola Screening: : No symptoms or risks identified at this time. - Family history:: not pertinent. - Hospitalizations: : No recent hospitalization is reported. ROS: 10:23 Constitutional: Negative for fever, chills, and weight loss, Eyes: Negative for injury, rn pain, redness, and discharge, Neck: Negative for injury, pain, and swelling, Cardiovascular: Negative for chest pain, palpitations, and edema, Respiratory: Negative for shortness of breath, cough, wheezing, and pleuritic chest pain, Abdomen/GI: Negative for abdominal pain, diarrhea, and constipation, Back: Negative for injury and pain, : Negative for injury, bleeding, discharge, and swelling, MS/Extremity: Negative for injury and deformity, Skin: Negative for injury, rash, and discoloration, Neuro: Negative for headache, numbness, tingling, and seizure. Exam: 10:23 Constitutional: This is a well developed, well nourished patient who is awake, alert, rn and in no acute distress. Head/Face: Normocephalic, atraumatic. ENT: Dry MM Neck: Trachea midline, no thyromegaly or masses palpated, and no cervical lymphadenopathy. Supple, full range of motion without nuchal rigidity, or vertebral point tenderness. No Meningismus. Cardiovascular: Regular rate and rhythm. No pulse deficits. Respiratory: Lungs have equal breath sounds bilaterally, clear to auscultation. No increased work of breathing, no retractions or nasal flaring. Abdomen/GI: soft, non-tender MS/ Extremity: Pulses equal, no cyanosis. Neurovascular intact. Full, normal range of motion. Equal circumference. Neuro: Awake and alert, GCS 15, oriented to person, place, time, and situation. Cranial nerves II-XII grossly intact. Motor strength 5/5 in all extremities. Sensory grossly intact. Cerebellar exam normal. Vital Signs: 08:56 BP 126 / 75; Pulse 64; Resp 14; Temp 97.7; Pulse Ox 97% ; Pain 0/10; sv 10:01 BP 181 / 88; Pulse 65; Resp 13; Pulse Ox 98% ; sv 10:27 BP 178 / 91; Pulse 63; Resp 12; Pulse Ox 98% ; sv 11:00 BP 152 / 74; Pulse 62; Resp 12; Pulse Ox 97% ; sv 11:45 BP 176 / 88; Pulse 61; Resp 12; Pulse Ox 97% ; sv 12:30 BP 168 / 83; Pulse 63; Resp 12; Pulse Ox 98% ; sv 13:17 BP 172 / 91; Pulse 66; Resp 15; Pulse Ox 99% ; sv 13:58 BP 170 / 88; Pulse 70; Resp 16; Pulse Ox 97% ; sv 14:50 BP 162 / 72; Pulse 70; Resp 16; Pulse Ox 98% on R/A; sg MDM: 09:06 Patient medically screened. rn 10:23 ED course: Denies blood in stool or bleeding from vascular access. rn 11:25 Differential Diagnosis volume depletion, dehydration, sepsis, bacteremia. Data rn reviewed: vital signs, nurses notes, lab test result(s), radiologic studies, CT scan, plain films, and as a result, I will admit patient. Counseling: I had a detailed discussion with the patient and/or guardian regarding: the historical points, exam findings, and any diagnostic results supporting the discharge/admit diagnosis, lab results, radiology results, the need for further work-up and treatment in the hospital. Response to treatment: the patient's symptoms have markedly improved after treatment, and as a result, I will admit patient. ED course: Admitted to Dr. Martinez for syncope, hypotension, with unclear etiology. Most likely volume depletion from late dialysis and dehydration. Lipase elevated but no abd pain and no acute findings on CT, possibly hypertriglyceridemia. Glucose normal.. 02/06 09:08 Order name: CBC with Diff; Complete Time: 11: rn 02/06 09:08 Order name: Basic Metabolic Panel; Complete Time: 11:04 rn 02/06 09:08 Order name: Urine Culture rn 02/06 09:08 Order name: Urine Microscopic Only; Complete Time: 11:22 rn 02/06 09:08 Order name: Procalcitonin; Complete Time: 11: rn 02/06 09:08 Order name: Blood Culture Adult (2) rn 02/06 09:08 Order name: XRAY Chest (1 view); Complete Time: 11:04 rn 02/06 09:08 Order name: Flu; Complete Time: 11:04 rn 02/06 09:08 Order name: Creatinine for Radiology; Complete Time: 11:04 rn 02/06 09:08 Order name: Hepatic Function; Complete Time: 11:04 rn 02/06 09:08 Order name: Lipase; Complete Time: 11: rn 02/06 09:18 Order name: Glucose, Ancillary Testing; Complete Time: 11:04 EDMS 02/06 10:25 Order name: CBC Smear Scan; Complete Time: 11:04 EDMS 02/06 10:34 Order name: Urine Dipstick--Ancillary (enter results); Complete Time: 11:04 bd 02/06 09:08 Order name: IV Start; Complete Time: 09:11 rn 02/06 09:08 Order name: Glucose Level; Complete Time: 09:11 rn 02/06 09:08 Order name: Urine Dipstick-Ancillary (obtain specimen); Complete Time: 11:14 rn 02/06 09:08 Order name: EKG; Complete Time: 09:10 rn 02/06 09:08 Order name: EKG - Nurse/Tech; Complete Time: 09:11 rn 02/06 09:08 Order name: CT Head Brain wo Cont; Complete Time: 11:04 rn 02/06 09:08 Order name: Labs collected and sent; Complete Time: 09:11 rn 02/06 09:08 Order name: CT Abd/Pelvis - Without Contrast; Complete Time: 11:04 rn 02/06 12:25 Order name: Diet Renal; Complete Time: 12:26 sg Administered Medications: 09:29 Drug: NS 0.9% 250 ml Route: IV; Rate: 1 bolus; Site: right antecubital; sv 10:01 Follow up: Response: No adverse reaction; IV Status: Completed infusion; IV Intake: sv 250ml Disposition: 02/06/19 11:27 Hospitalization ordered by Clark Martinez for Observation. Preliminary diagnosis are Syncope and collapse, Dehydration, Acute pancreatitis, unspecified. - Bed requested for Telemetry/MedSurg (observation). - Status is Observation. sv - Condition is Stable. - Problem is new. - Symptoms have improved. UTI on Admission? No Signatures: Dispatcher [employer] EDWV Sonal Garcia RN Zoraida Snyder RN RN dw Gay, Steven, RN RN sg Nieto, Roman, MD MD supervisor metal furniture assembly: (The following items were deleted from the chart) 14:26 11:27 Hospitalization Ordered by Clark Martinez for Observation. Preliminary diagnosis dw is Syncope and collapse; Dehydration; Acute pancreatitis, unspecified. Bed requested for Telemetry/MedSurg (observation). Status is Observation. Condition is Stable. Problem is new. Symptoms have improved. UTI on Admission? No. rn 15:17 14:26 02/06/2019 11:27 Hospitalization Ordered by Clark Martinez for Observation. sv Preliminary diagnosis is Syncope and collapse; Dehydration; Acute pancreatitis, unspecified. Bed requested for Telemetry/MedSurg (observation). Status is Observation. Condition is Stable. Problem is new. Symptoms have improved. UTI on Admission? No. dw
--- NOTE | 2019-02-06 13:07 | P.HP ---
Certification for Inpatient Patient admitted to: Observation With expected LOS: <2 Midnights Patient will require the following post-hospital care: None Practitioner: I am a practitioner with admitting privileges, knowledge of patient current condition, hospital course, and medical plan of care. Services: Services provided to patient in accordance with Admission requirements found in Title 42 Section 412.3 of the Code of Federal Regulations Patient History Date of Service: 02/10/19 Reason for admission: Passed out History of Present Illness: 58-year-old gentleman with a history of diabetes mellitus type 2, history of end -stage renal disease on hemodialysis on Tuesday and Tuesday was brought to the ED due to an episode lightheadedness, diaphoresis and confusion. According to the patient, he developed fatigue and weakness after hemodialysis last night. He experienced the above symptoms after voiding this morning. According to the patient EMS found him low blood pressure. He also reports fatigue most times after dialysis and history of low blood pressure right after dialysis. He has had his dialysis duration changed a couple of times due to these symptoms. He now does 3.5 hours of dialysis which is a cut back from 4 hours. He has a history of recent CABG. His blood pressure in the ED during my examination noted to be elevated. Heart rate is in the 60s. EKG unremarkable, chest x-ray in the ED also unremarkable. UA suggest no UTI, creatinine level is 8 which is his baseline. Of note lipase level is elevated to 1522. Patient reported dry heaving after experiencing the lightheadedness but did not vomiting. He also denies any abdominal pain. Noted liver enzymes mildly elevated. CT abdomen and pelvis without contrast done in the ED reported normal looking liver and pancreas. Patient is placed under observation for further evaluation and management. Allergies No Known Allergies Allergy (Verified 02/27/18 11:04) Home Medications: Spironolactone [Aldactone*] 25 mg PO DAILY 07/08/16 carvediloL [Carvedilol] 12.5 mg PO BID 11/26/16 Gabapentin 300 mg PO DAILY 02/27/18 glipiZIDE [Glipizide] 10 mg PO BID 02/27/18 Calcium Acetate [Phoslo*] 1,334 mg PO TIDWM #180 cap 03/03/18 Hydralazine [Apresoline*] 25 mg PO BID 02/06/19 - Past Medical/Surgical History Diabetic: Yes -: HTN -: DM, no insulin for over 1 month -: Neuropathy -: Chronic kidney disease -: Transmet amputation left foot 2009 -: Back I&D 2017 x2 - Family History Father -: Diabetes Mother -: GI disease Notes: Patient states that mother is in the hospital with a unknow GI problem Sister -: GI disease - Social History Alcohol use: No CD- Drugs: No Caffeine use: Yes Review of Systems Other: General: No fever, no malaise, no unintentional weight loss. Eyes: No eye discharge, Respiratory: No cough, no shortness of breath. CVS: No chest pain, no palpitation. GI: No abdominal pain, no constipation, no diarrhea. Genitourinary: No dysuria, no urinary frequency, no incontinence, no hematuria. Musculoskeletal: No joint pains, or joint swelling, no gait instability. Neurology: No headache, no asymmetric, weakness, no problem with swallowing. Except as documented, all other systems reviewed and negative. Physical Examination - Physical Exam General: Alert, In no apparent distress, Oriented x3 HEENT: Atraumatic, Normocephalic, PERRLA, Mucous membr. moist/pink, Sclerae nonicteric Neck: Supple, 2+ carotid pulse no bruit, JVD not distended, No Thyromegaly Respiratory: Clear to auscultation bilaterally, Normal air movement Cardiovascular: No edema, Normal pulses, Regular rate/rhythm, Normal S1 S2, No murmurs Capillary refill: <2 Seconds Gastrointestinal: Normal bowel sounds, Soft and benign, Non-distended, No tenderness Musculoskeletal: No swelling, No erythema Integumentary: No rashes Neurological: Normal speech, Normal strength at 5/5 x4 extr - Studies Laboratory Data (last 24 hrs) 02/06/19 09:10: Creatinine 8.24 H* 02/06/19 09:10: Sodium 138, Potassium 4.0, BUN 41 H, Creatinine 8.23 H*, Glucose 120 H, Total Bilirubin 0.4, AST 12 L, ALT 18, Alkaline Phosphatase 126 H , Lipase 1522 H 02/06/19 09:10: WBC 9.7, Hgb 14.2, Hct 41.9, Plt Count 218 Microbiology Data (last 24 hrs): 02/06/19 09:10 Nasopharnyx Influenza Type A Antigen Screen - Final 02/06/19 09:10 Nasopharnyx Influenza Type B Antigen Screen - Final Assessment and Plan - Problems (Diagnosis) (1) Syncope Status: Acute (2) Elevated lipase Status: Acute (3) ESRD (end stage renal disease) Status: Chronic (4) Essential hypertension Onset Date: 11/26/16 Status: Chronic - Plan Place under observation with lightout examiner blood pressure closely Continue home antihypertensives Nephrology consult for hemodialysis Check blood pressure after hemodialysis. Dry weight adjustment per nephrology. Check serial lipase daily Obtain right upper quadrant sonogram Check lipid profile Insulin sliding scale for glucose management. Renal diet. - Advance Directives Does patient have a Living Will: No Does patient have a Durable POA for Healthcare: No
[2019-02-06] MEDS ORDERED: ACETAMINOPHEN 500 MG TAB PO PRN (15:40)
[2019-02-06] MEDS ORDERED: ONDANSETRON 4 MG/2 ML VIAL IV PRN (15:40)
[2019-02-06 16:46] LABS: Troponin I < 0.02 ng/mL (0.0-0.045)
[2019-02-06] MEDS: INSULIN -REGULAR HUMAN 50 UNIT/0.5 ML ML SQ SCH ×2 (17:46→20:37)
[2019-02-06] MEDS: HEPARIN 5000 UNIT/ML 1 ML VIAL SQ SCH (17:47)
[2019-02-07 04:35] LABS: Absolute Lymphocytes (CBC) 2.1 K/uL (0.7-4.9); Basophils % 1.1 % (0-1.3); Hematocrit 41.7 % (39.6-49.0); MPV 8.7 fL (7.6-11.3)
[2019-02-07 04:59] LABS: Magnesium 2.5 mg/dL (1.8-2.4); Potassium 4.1 mmol/L (3.5-5.1)
[2019-02-07] MEDS: INSULIN -REGULAR HUMAN 50 UNIT/0.5 ML ML SQ SCH ×5 (07:30→20:57)
[2019-02-07] MEDS: carvediloL 12.5 MG TAB PO SCH ×3 (09:00→20:56)
[2019-02-07] MEDS: HEPARIN 5000 UNIT/ML 1 ML VIAL SQ SCH ×3 (09:00→16:12)
[2019-02-07] MEDS: HYDRALAZINE HCL 25 MG TABLET PO SCH ×3 (09:00→20:57)
[2019-02-07 18:34] VITALS: BMI 28.6
--- NOTE | 2019-02-07 18:57 | P.PN ---
Subjective Date of Service: 02/07/19 Chief Complaint: Passed out Subjective: No new changes Patient underwent hemodialysis today. He completed 3 hrs of dialysis. His blood pressure has been stable and mostly hypertensive. He denies any chest pain or shortness of breath. Telemetry has also been unremarkable. Physical Examination - Vital Signs Temperature: 97.1 F Blood Pressure: 158/94 Pulse: 74 Respirations: 16 Pulse Ox (%): 100 - Physical Exam General: Alert, In no apparent distress, Oriented x3 HEENT: Mucous membr. moist/pink Neck: Supple, JVD not distended Respiratory: Clear to auscultation bilaterally, Normal air movement Cardiovascular: No edema, Regular rate/rhythm, Normal S1 S2 Capillary refill: <2 Seconds Gastrointestinal: Normal bowel sounds, Soft and benign, Non-distended, No tenderness Musculoskeletal: No swelling Integumentary: No rashes Neurological: Normal speech, Normal strength at 5/5 x4 extr - Studies Microbiology Data (last 24 hrs): 02/06/19 09:25 Blood - Blood Anaerobic Blood Culture - Final Assessment And Plan - Current Problems (Diagnosis) (1) Syncope Current Visit: Yes Status: Acute (2) Elevated lipase Current Visit: Yes Status: Acute (3) ESRD (end stage renal disease) Current Visit: No Status: Chronic (4) Essential hypertension Onset Date: 11/26/16 Current Visit: No Status: Chronic - Plan Continue telemetry. Continue home antihypertensives Hemodialysis per nephrology Check orthostatics vitals especially after hemodialysis Check serial lipase. Triglyceride level is not elevated. Hold Coreg, continue Aldactone and hydralazine LDL above target. Insulin sliding scale for glucose management. Renal diet. Cardiology consult Obtain echocardiogram.
[2019-02-07] MEDS ORDERED: HYDRALAZINE HCL 25 MG TABLET PO SCH (21:00)
--- NOTE | 2019-02-07 23:48 | CON ---
History Of Present Illness: Mr. Grijalva is 58. He came to the hospital because he had syncope during d ialysis, he has had several of these spells. He has been a dialysis patient for about a year. He un derwent bypass surgery 5 months ago at [facility] after acute coronary syndrome. The patient often gets low blood pressure during dialysis. He does not get chest pain. He is not having shortn ess of breath. There has been no episode of syncope during standing or doing normal activities. It is all associated with dialysis. He has underlying diabetes, hypertension, coronary heart disease, r enal failure. Outpatient Medications: Spironolactone, carvedilol, glipizide, gabapentin, calcium acetate, hydralaz ine. Allergies: HE HAS NO ALLERGIES. Social History: He uses no tobacco. Physical Examination: Vital Signs: 6 feet 1, 221 pounds. General: Alert, oriented, and pleasant, not in distress. Lungs: Clear. Cardiac: Within normal limits. Extremities: No edema. Distal pulses diminished but palpable. Blood pressure is 158/94, pulse 74. I would recommend that the patient perhaps hold his hydralazine on the days of dialysis. He might al so be able to hold his carvedilol on dialysis days and just take it beginning some 6-8 hours after di alysis when extracellular fluid has had a chance to re-stabilize. I think he will be less likely to get hyp otensive if we did that. SH/MODL Voice ID: [id number] Report ID: [id number]
[2019-02-08] MEDS: HEPARIN 5000 UNIT/ML 1 ML VIAL SQ SCH ×2 (00:14→08:15)
--- NOTE | 2019-02-08 03:43 | CON ---
Date of Consultation: 02/07/2019 Reason For Consultation: Elevated BUN and creatinine, end-stage renal disease. History Of Present Illness: This is a 58-year-old gentleman, well known to me from dialysis with significant past medical history of diabetes complicated with neuropathy, retinopathy, and nephropathy; hypertension; hyperlipidemia; coronary artery disease; end-stage renal disease, on hemodialysis, Tuesday, Tuesday, and Tuesday. Patient apparently came to the hospital because feeling fatigue and syncope, brought by EMS. There is no mention for any loss of conscious, although blood pressure primary workup did not show any hypoglycemia or UTI. Imaging did not show any intracranial abnormality. Lab data show elevation in BUN and creatinine. For that reason, we have been consulted. The patient's last dialysis was Tuesday. Past Medical History: Include: 1. Coronary artery disease. 2. Hypertension. 3. Hyperlipidemia. 4. Diabetes complicated with neuropathy, nephropathy, and retinopathy. 5. End-stage renal disease. Allergies: NO KNOWN DRUG ALLERGIES. Home Medications: Amlodipine, spironolactone, carvedilol, gabapentin, glipizide , calcitriol, lisinopril. Family History: Positive for diabetes and hypertension. Social History: Denies smoking. Denies drinking. Denies drugs abuse. Review of Systems: Head and Neck: No red eye. No ear pain. GI: No nausea, no vomiting. : No polyuria, no dysuria, no hematuria. LEACH RUNNER: Not applicable. Respiratory: No shortness of breath. Cardiovascular: Has syncope. Neuro: Has syncope. Musculoskeletal: Low back pain. Endocrine: No polydipsia. Skin: No rash. Physical Examination: Vital Signs: When I saw the patient, blood pressure of 188/92; pulse of 69; afebrile. Chest: Clear to auscultation. Heart: S1, S2 regular. Abdomen: Soft, nontender. Extremities: +1 edema. Neuro: Nonfocal. No tremor. Laboratory Data: Sodium 136, potassium 4.1, bicarb 23, BUN 65, creatinine 9.7, calcium 8.3, phosphor 5, magnesium 2.5, H and H 13.9/41.7. Assessment And Plan: 1. End-stage renal disease, slightly on the over volume side. We will dialyze the patient. We will challenge. 2. Hypertension, not controlled. We will challenge the patient as tolerated blood pressure to establish better volume control. 3. Over volume. Patient is going to be challenged on dialysis today. 4. Diabetes as by primary. 5. Syncope with history of coronary artery disease. Will follow up with Cardiology and primary. THALIA Voice ID: [id number] Report ID: [id number]
[2019-02-08 04:57] VITALS: O2SAT 99
[2019-02-08] MEDS: INSULIN -REGULAR HUMAN 50 UNIT/0.5 ML ML SQ SCH ×2 (07:30→12:11)
[2019-02-08] MEDS: HYDRALAZINE HCL 25 MG TABLET PO SCH (08:15)
[2019-02-08] MEDS: carvediloL 12.5 MG TAB PO SCH (08:15)
[2019-02-08] MEDS: CA ACETATE 667 MG CAP PO SCH ×2 (08:15→12:04)
--- NOTE | 2019-02-08 08:16 | ECHO ---
HEIGHT: 6 ft 1 in WEIGHT: 217 lb 4.8 oz DATE OF STUDY: 02/07/[address]: don ugalde 2-DIMENSIONAL: YES M.MODE: YES DOPPLER: YES COLOR FLOW: YES TDS: YES PORTABLE: NO DEFINITY: NO BUBBLE STUDY: NO DIAGNOSIS: SYNCOPE CARDIAC HISTORY: CATHERIZATION: YES SURGERY: YES PROSTHETIC VALVE: NO PACEMAKER: NO MEASUREMENTS (cm) DIASTOLIC (NORMALS) SYSTOLIC (NORMALS) IVSd 1.4 (0.6-1.2) LA Diam 4.0 (1.9-4.0) LVEF 60-69% LVIDd 4.3 (3.5-5.7) LVIDs 3.2 (2.0-3.5) %FS 25% LVPWd 1.1 (0.6-1.2) Ao Diam 3.2 (2.0-3.7) 2 DIMENSIONAL ASSESSMENT: RIGHT ATRIUM: NORMAL LEFT ATRIUM: DILATED RIGHT VENTRICLE: NORMAL LEFT VENTRICLE: LEFT VENTRICULAR HYPERTROPHY TRICUSPID VALVE: NORMAL MITRAL VALVE: NORMAL PULMONIC VALVE: NORMAL AORTIC VALVE: NORMAL PERICARDIAL EFFUSION: NONE AORTIC ROOT: NORMAL LEFT VENTRICULAR WALL MOTION: PARADOXICAL SEPTAL MOTION SEEN POST THORACOTOMY. DOPPLER/COLOR FLOW: IMPAIRED LEFT VENTRICULAR RELAXATION. COMMENTS: NORMAL LEFT VENTRICULAR EJECTION FRACTION WITH PARADOXICAL SEPTAL MOTION. LEFT VENTRICULAR HYPERTROPHY. DILATED LEFT ATRIUM. IMPAIRED LEFT VENTRICULAR RELAXATION. TECHNOLOGIST: Sara HUFFMAN
[2019-02-08] MEDS ORDERED: SPIRONOLACTONE 25 MG TABLET PO SCH (09:00)
[2019-02-08] MEDS ORDERED: GABAPENTIN 300 MG CAP PO SCH (09:00)
[2019-02-08 12:20] VITALS: BP 132/75; TEMP 97.2
--- NOTE | 2019-02-08 13:54 | P.DS ---
Admission Date: 02/06/19 Discharge Date: 02/08/19 Disposition: ROUTINE DISCHARGE Discharge Condition: GOOD Reason for Admission: Passed out Consultations: Cardiology Nephrology Procedures: None - Problems (1) Syncope Current Visit: Yes Status: Acute (2) Elevated lipase Current Visit: Yes Status: Acute (3) ESRD (end stage renal disease) Current Visit: No Status: Chronic (4) Essential hypertension Onset Date: 11/26/16 Current Visit: No Status: Chronic Brief History of Present Illness: 58-year-old gentleman with a history of diabetes mellitus type 2, history of end -stage renal disease on hemodialysis on Tuesday and Tuesday was brought to the ED due to an episode lightheadedness, diaphoresis and confusion. According to the patient he developed fatigue and weakness after hemodialysis last night. He experienced above symptoms after voiding this morning. According to the patient EMS was called and they recorded low blood pressure. He also reports fatigue most times after dialysis and history of low blood pressure right after dialysis. He has had his dialysis duration changed a couple of times due to these symptoms. He now does 3.5 hours of dialysis which is a cut back from 4 hours. His blood pressure in the ED during my examination noted to be elevated. Heart rate was in the 60s. EKG unremarkable, chest x-ray in the ED also unremarkable. UA suggest no UTI, creatinine level is 8 which is his baseline. Of note lipase level elevated to 1522. Patient was dry heaving after experiencing the lightheadedness but no vomiting. He also denies any abdominal pain. Noted liver enzymes mildly elevated. CT abdomen and pelvis without contrast done in the ED reported normal looking liver and pancreas. Patient was placed under observation for further evaluation and management. Hospital Course: Troponin trended was negative. His blood pressure was stable during the hospital stay. Telemetry was unremarkable. Patient underwent sessions of dialysis. Lowest systolic blood pressure recorded was 105. Given the history of recent CABG, echocardiogram was obtained which reported normal EF, paradoxical septal motion. Patient was evaluated by cardiology, the syncope episode was deemed secondary to orthostasis after dialysis. Noted patient is on multiple antihypertensives. He was informed to space out his antihypertensives from time he get dialysis to avoid post dialysis hypotension. Patient was asymptomatic during the hospital stay. He is deemed clinically stable for discharge at this time. Vital Signs/Physical Exam: Temp Pulse Resp BP Pulse Ox 97.2 F 75 16 132/75 99 02/08/19 12:00 02/08/19 12:00 02/08/19 12:00 02/08/19 12:00 02/08/19 12:00 General: Alert, In no apparent distress, Oriented x3 HEENT: Mucous membr. moist/pink Neck: Supple, JVD not distended Respiratory: Clear to auscultation bilaterally, Normal air movement Cardiovascular: No edema, Regular rate/rhythm, Normal S1 S2 Capillary refill: <2 Seconds Gastrointestinal: Normal bowel sounds, Soft and benign, Non-distended, No tenderness Musculoskeletal: No swelling Integumentary: No rashes Neurological: Normal speech, Normal strength at 5/5 x4 extr Laboratory Data at Discharge: WBC 11.4 K/uL (4.3-10.9) H D 02/07/19 04:04 Hgb 13.9 g/dL (13.6-17.9) 02/07/19 04:04 Hct 41.7 % (39.6-49.0) 02/07/19 04:04 Plt Count 196 K/uL (152-406) 02/07/19 04:04 Sodium 134 mmol/L (136-145) L 02/08/19 03:56 Potassium 4.0 mmol/L (3.5-5.1) 02/08/19 03:56 BUN 58 mg/dL (7-18) H 02/08/19 03:56 Creatinine 9.02 mg/dL (0.55-1.3) H* 02/08/19 03:56 Glucose 104 mg/dL (74-106) 02/08/19 03:56 Phosphorus 5.0 mg/dL (2.5-4.9) H 02/07/19 04:04 Magnesium 2.7 mg/dL (1.8-2.4) H 02/07/19 19:17 Total Bilirubin 0.4 mg/dL (0.2-1.0) 02/06/19 09:10 AST 12 U/L (15-37) L 02/06/19 09:10 ALT 18 U/L (12-78) 02/06/19 09:10 Alkaline Phosphatase 126 U/L (45-117) H 02/06/19 09:10 Troponin I < 0.02 ng/mL (0.0-0.045) 02/07/19 07:44 Triglycerides 149 mg/dL (<150) 02/07/19 04:04 Cholesterol 183 mg/dL (<200) 02/07/19 04:04 HDL Cholesterol 43 mg/dL (40-60) 02/07/19 04:04 Cholesterol/HDL Ratio 4.26 02/07/19 04:04 Lipase 1065 U/L (73-393) H 02/07/19 04:04 Home Medications: Spironolactone [Aldactone*] 25 mg PO DAILY 07/08/16 carvediloL [Carvedilol] 12.5 mg PO BID 11/26/16 Gabapentin 300 mg PO DAILY 02/27/18 glipiZIDE [Glipizide] 10 mg PO BID 02/27/18 Calcium Acetate [Phoslo*] 1,334 mg PO TIDWM #180 cap 03/03/18 Hydralazine [Apresoline*] 25 mg PO BID 02/06/19 Diet: Renal Activity: Ad heather
--- NOTE | 2019-02-08 15:58 | PN ---
Date of Progress Note: 02/08/2019 Subjective: Patient was admitted with syncope, seen by Cardiology. Workup all negative. Patient is status post dialysis yesterday the to tolerate dialysis. Physical Examination: Vital Signs: Blood pressure 153/89, pulse of 70, afebrile. Chest: Clear to auscultation. Heart: S1, S2. Regular. Abdomen: Soft, nontender. Extremities: Trace edema. Laboratory Data: H and H 13.9/41.7, platelets 196. Sodium 134, potassium 4, bicarb 25, BUN 58, creatinine 9, calcium 8.5. Current Medications: The patient on include carvedilol 12.5, hydralazine, Aldactone, gabapentin, calcium acetate, insulin. Assessment And Plan: 1. End-stage renal disease. Normal volume. We will continue dialysis Tuesday , Tuesday, Tuesday. 2. Secondary hyperparathyroid. Continue PhosLo. 3. Anemia of chronic kidney disease. Continue KADI. 4. Hypertension, controlled, optimal. Continue current treatment. 5. Syncope, seen by Cardiology. CT of the brain was negative. Hydralazine to be held on the dialysis day, questionable about the carvedilol. We will follow up cardiology recommendation. Patient cleared from the renal standpoint for discharge planning. THALIA Voice ID: [id number] Report ID: [id number] NICOLE
== END 2019-02-08 15:08 | disposition home or self-care (01) ==
LOC: ER 08:58 → ERHOLD 12:55 → 4TH 15:00
PROVIDERS: ADMIT Internal Medicine; ATTEND Internal Medicine
DX: R55 Syncope and collapse (principal); I95.1 Orthostatic hypotension; R79.89 Other specified abnormal findings of blood chemistry; I12.0 Hypertensive chronic kidney disease with stage 5 chronic kidney disease or end stage renal disease; E11.22 Type 2 diabetes mellitus with diabetic chronic kidney disease; N18.6 End stage renal disease; D63.1 Anemia in chronic kidney disease; Z99.2 Dependence on renal dialysis; I25.10 Atherosclerotic heart disease of native coronary artery without angina pectoris; Z95.1 Presence of aortocoronary bypass graft
CPT/HCPCS: 93005; 93306; 87040 ×2; 87088; 85025 ×2; 80048 ×3; 36415 ×2; 83735 ×2; 84100; 80061; 82947 ×9; 80076; 84443; 84484 ×3; 83690 ×2; 84145; 87804 ×2; 70450; 74176; 71045; 96360; 99285; J1644 ×5; G0257; G0378 ×4; 81003; 81015; 87086; 96365; J7030

== ENCOUNTER 2019-05-25 07:10 | Day surgery (SDC) | payer OTHER ==
[2019-05-25] MEDS ORDERED: propofoL 200 MG/20 ML VIAL IV ONE (07:42)
[2019-05-25] MEDS ORDERED: FENTANYL CITR 100 MCG/2 ML ONE (07:42)
[2019-05-25] MEDS ORDERED: Phenylephrine HCl 10 MG/ML 1 ML VIAL ONE (07:42)
[2019-05-25] MEDS ORDERED: LIDOCAINE 2% MPF 5 ML VIAL ONE (07:43)
[2019-05-25] MEDS ORDERED: NS 0.9% VIAL 10 ML ONE (07:43)
[2019-05-25] MEDS ORDERED: VANCOMYCIN/NS 1 gm 1 GM/250 ML BAG IV ONE (07:45)
[2019-05-25] MEDS ORDERED: NA CHLORIDE 0.9% 0 ML ONE (07:47)
[2019-05-25] MEDS ORDERED: VANCOMYCIN 1 GM/VIAL ONE (07:47)
[2019-05-25] MEDS ORDERED: NA CHLORIDE 0.9% 500 ML ONE (07:52)
[2019-05-25 08:05] LABS: Potassium 4.5 mmol/L (3.5-5.1)
[2019-05-25] MEDS ORDERED: BUPIVACAINE 0.25% PF 10 ML VIAL ONE (08:25)
[2019-05-25] MEDS ORDERED: D50W 25 GM/50 ML SYRINGE/VIAL IV ONE (08:28)
[2019-05-25] MEDS ORDERED: BUPIVACA 0.25%/EPI 0.0005%/PF 30 ML VIAL ONE (09:04)
--- NOTE | 2019-05-25 09:36 | P.OP ---
Preoperative diagnosis: Gangrene of 2nd toe of RIGHT foot Postoperative diagnosis: Gangrene of 2nd toe of RIGHT foot Primary procedure: Partial Amputation of 2nd toe of RIGHT foot Anesthesia: MAC + Local Estimated blood loss: <2cc Specimen: Toe to mid proximal phalanx Findings: infection to DIP, head of Proximal phalanx Complications: None Transferred to: Recovery Room Condition: Good
[2019-05-25 10:05] VITALS: TEMP 97; O2SAT 99
[2019-05-25 11:40] VITALS: BP 189/74
--- NOTE | 2019-05-25 14:31 | OP ---
Date of Procedure: 05/25/2019 Surgeon: Yfn Mandujano MD, Preoperative Diagnosis: Gangrenous changes to the second toe of the right foot. Postoperative Diagnosis: Gangrenous changes to the second toe of the right foot. Procedure Performed: A partial amputation of the second toe of the right foot down the proximal phal anx. Anesthesia: MAC plus local with 0.5% Marcaine with epinephrine. Estimated Fluid Loss: Less than 2 mL. Specimens: Toe to mid proximal phalanx. Findings: Infection of the DIP and head of the proximal phalanx. Complications: None. Condition: Transferred to recovery room in good condition. Procedure In Detail: After informed consent was obtained, patient was brought to the operating room, prepped and draped in the usual sterile fashion. After adequate anesthesia was achieved, I cut down through necrotic tissue on a medial aspect of an ulcer on the second toe of the right foot to discov er the infection extended all the way to the bone. This was at the distal phalanx. I therefore circ umferentially dissected back with a 15-blade scalpel down through subcutaneous tissues down to the in terphalangeal joint. The head of the proximal phalanx appeared somewhat discolored and as such I dec ided to perform a partial amputation of this proximal phalanx, so I used a periosteal elevator to pus h all of the periosteum back beyond this point to the metatarsophalangeal joint. After this was perf ormed, I used a bone cutter to cut the midportion of the proximal phalanx and used a rasp to smooth a nd bevel the edges. The bone appeared to be good and viable at this point with no evidence of infect ion at the proximal phalanx. The distal phalanx appeared grossly infected to the bone, however, afte r the specimen was sent off for pathologic examination, I debrided the remainder of the tissue and ba sed on flap, I irrigated the area multiple times completely clear. Hemostasis was achieved with elec trocautery and the skin was closed with interrupted vertical mattress and simple interrupted sutures over the top of the amputation margin. Good approximation of tissue was appreciated. The sterile dr essings were placed over top. Patient tolerated the procedure well without evidence of complication, transferred to PACU in good condition. All counts were correct. TK/MODL Voice ID: [id number] Report ID: [id number]
== END 2019-05-25 11:20 | disposition home or self-care (01) ==
LOC: OR 07:10
PROVIDERS: ATTEND Surgery
PROC: 0Y6R0Z1 Detachment at Right 2nd Toe, High, Open Approach (ICD-10-PCS; principal; 2019-05-25 08:30)
DX: E11.52 Type 2 diabetes mellitus with diabetic peripheral angiopathy with gangrene (principal); I96 Gangrene, not elsewhere classified; E11.621 Type 2 diabetes mellitus with foot ulcer; L97.514 Non-pressure chronic ulcer of other part of right foot with necrosis of bone; L03.031 Cellulitis of right toe; I10 Essential (primary) hypertension; Z79.899 Other long term (current) drug therapy; Z95.1 Presence of aortocoronary bypass graft
CPT/HCPCS: 80048; 36415; 82947 ×2; 88305; 28825; J2704; J2370; J3010; J3370; J7040; J7030

== ENCOUNTER 2019-06-09 12:12 | Inpatient (IN) | payer OTHER ==
[2019-06-09] MEDS ORDERED: VANCOMYCIN/NS 1 gm 1 GM/250 ML BAG IV ONE (13:00)
--- NOTE | 2019-06-09 13:10 | ER ---
Nurse's Notes [facility] Name: Dayton Grijalva Age: 58 yrs Sex: Male : 1960 Arrival Date: 06/09/2019 Time: 12:14 Bed 20 Private MD: Tito Duval E Diagnosis: Cellulitis of right lower limb;Open wound of foot;Gangrene, not elsewhere classified Presentation: 06/08 12:32 Chief complaint: Patient's son or daughter states: pt had a partial amputation of 2nd iw toe on right foot [address] Mandujano, son states he is worried the toe may be infected, noticed purple discoloration to toe and foot since yesterday, is currently on antibiotics. Coronavirus screen: Patient denies fever greater than 100.4F, cough, shortness of breath, or difficulty breathing. Proceed with normal triage process. Ebola Screen: Patient negative for fever greater than or equal to 101.5 degrees Fahrenheit, and additional compatible Ebola Virus Disease symptoms Patient denies exposure to infectious person. Patient denies travel to an Ebola-affected area in the 21 days before illness onset. No symptoms or risks identified at this time. Initial Sepsis Screen: Does the patient meet any 2 criteria? No. Patient's initial sepsis screen is negative. Does the patient have a suspected source of infection? No. Patient's initial sepsis screen is negative. Risk Assessment: Do you want to hurt yourself or someone else? Patient reports no desire to harm self or others. 12:32 Method Of Arrival: Wheelchair iw 12:32 Acuity: SAMARA 3 iw Historical: - Allergies: 12:36 No Known Allergies; iw - Home Meds: 13:09 amlodipine 10 mg tab 1 tab once daily [Active]; carvedilol 12.5 mg Oral tab 1 tab 2 iw times per day [Active]; furosemide 40 mg Oral tab 1 tab once daily [Active]; gabapentin 300 mg Oral cap 1 cap daily [Active]; glipizide 10 mg Oral tab 1 tab 2 times per day [Active]; hydralazine 25 mg Oral tab 1 tab 2 times per day [Active]; spironolactone 25 mg Oral tab 1 tab once daily [Active]; - PMHx: 12:36 Diabetes - IDDM; HD-MWF; Hypertension; iw - PSHx: 13:09 left foot sx; triple bypass; iw - Immunization history:: Adult Immunizations up to date. - Social history:: Smoking status: Patient denies any tobacco usage or history of. Screenin:32 Abuse screen: Denies threats or abuse. Nutritional screening: No deficits noted. em Tuberculosis screening: No symptoms or risk factors identified. Fall Risk None identified. Assessment: 12:32 General: Appears in no apparent distress. comfortable, Behavior is calm, cooperative, em appropriate for age, Denies fever. Pain: Denies pain. Neuro: Level of Consciousness is awake, alert, obeys commands, Oriented to person, place, time, situation, Appropriate for age. Cardiovascular: Capillary refill < 3 seconds Patient's skin is warm and dry. Pulses are absent in right dorsalis pedis artery Rhythm is sinus rhythm. Respiratory: Airway is patent Respiratory effort is even, unlabored, Respiratory pattern is regular, symmetrical. GI:. Derm: Skin is intact, is fragile, Skin is pink, warm \T\ dry. Wound noted right second toe redness and bruising noted to right foot. Musculoskeletal: Amputation of right second toe, left first toe, left second toe, left third toe, left fourth toe and left fifth toe. Capillary refill < 3 seconds, Range of motion: intact in all extremities. 13:48 Reassessment: Patient appears in no apparent distress at this time. Patient and/or em family updated on plan of care and expected duration. Pain level reassessed. Patient is alert, oriented x 3, equal unlabored respirations, skin warm/dry/pink. Vital Signs: 12:32 BP 134 / 74; Pulse 102; Resp 16 S; Temp 98.7; Pulse Ox 98% on R/A; Weight 102 kg; iw Height 6 ft. 1 in. (185.42 cm); Pain 0/10; 13:30 BP 176 / 89; Pulse 96; Resp 19; Pulse Ox 99% on R/A; em 14:33 BP 193 / 97; Pulse 92; Resp 18; Pulse Ox 98% on R/A; em 15:17 BP 173 / 83; Pulse 94; Resp 18; Pulse Ox 99% on R/A; em 12:32 Body Mass Index 29.67 (102.00 kg, 185.42 cm) ED Course: 12:14 Patient arrived in ED. ag5 12:14 Tito Duval MD is Private Physician. ag5 12:23 Vazquez Garcia, RN is Primary Nurse. em 12:30 James Cheatham PA is PHCP. jr8 12:30 Cristofer Huynh MD is Attending Physician. jr8 12:32 Patient has correct armband on for positive identification. Bed in low position. Call em light in reach. Side rails up X2. Pulse ox on. NIBP on. 12:35 Triage completed. iw 12:42 Arm band placed on. iw 13:02 Inserted saline lock: 20 gauge in right forearm, using aseptic technique. Blood jl7 collected. 13:03 Initial lab(s) drawn, by ny, sent to lab. First set of blood cultures drawn by ED jl7 staff, Second set of blood cultures drawn by me. 13:09 Tao Howell MD is Hospitalizing Provider. jr8 13:17 XRAY Chest (1 view) In Process Unspecified. EDMS 14:53 No provider procedures requiring assistance completed. Patient admitted, IV remains in em place. Administered Medications: 13:15 Drug: Cefepime 1 grams Route: IVPB; Rate: 200 ml/hr; Infused Over: 30 mins; Site: right em forearm; 13:49 Follow up: Response: No adverse reaction; IV Status: Completed infusion; IV Intake: em 100ml 13:48 Drug: vancoMYCIN 1 grams Route: IVPB; Infused Over: 2 hrs; Site: right forearm; em 14:54 Follow up: IV Status: Infusion continued upon admission em 15:17 Drug: NS 0.9% 500 ml Route: IV; Rate: bolus; Site: right forearm; em Intake: 13:49 IV: 100ml; Total: 100ml. em Outcome: 13:10 Decision to Hospitalize by Provider. jr8 14:53 Admitted to Med/surg accompanied by nurse, via stretcher, room 224, with chart, Report em called to SUNITA Maradiaga 14:53 Condition: good 14:53 Instructed on the need for admit, Demonstrated understanding of instructions. 15:34 Patient left the ED. em Signatures: Dispatcher [employer] EDCT Vazquez Garcia RN RN em Chetna Ramachandran RN RN James Cheatham PA PA jr8 Fu, Jahala, RN RN jl7 Ajay, Ajare ag5
--- NOTE | 2019-06-09 13:10 | EDPHYS ---
Physician Documentation [facility] Name: Dayton Grijalva Age: 58 yrs Sex: Male : 1960 Arrival Date: 06/09/2019 Time: 12:14 Bed 20 Private MD: Tito Duval E ED Physician Cristofer Huynh HPI: 06/08 13:03 This 58 yrs old Male presents to ER via Wheelchair with complaints of Wound jr8 Infection. 13:03 The patient presents with pain, swelling, tenderness. The complaints affect the right jr8 foot. Onset: The symptoms/episode began/occurred chronic but markedly worse over the past 48 hours . Modifying factors: The symptoms are alleviated by nothing, the symptoms are aggravated by nothing. Associated signs and symptoms: The patient has no apparent associated signs or symptoms. It is unknown whether or not the patient has had similar symptoms in the past. The patient has been recently seen by a physician:. Patient with chronic wound on right foot that has resulted in amputation of one digit already. Stated that he has been going threw wound therapy but over the last 48 hours has had markedly worse erythema and color change to foot including toes . Historical: - Allergies: 12:36 No Known Allergies; iw - Home Meds: 13:09 amlodipine 10 mg tab 1 tab once daily [Active]; carvedilol 12.5 mg Oral tab 1 tab 2 iw times per day [Active]; furosemide 40 mg Oral tab 1 tab once daily [Active]; gabapentin 300 mg Oral cap 1 cap daily [Active]; glipizide 10 mg Oral tab 1 tab 2 times per day [Active]; hydralazine 25 mg Oral tab 1 tab 2 times per day [Active]; spironolactone 25 mg Oral tab 1 tab once daily [Active]; - PMHx: 12:36 Diabetes - IDDM; HD-MWF; Hypertension; iw - PSHx: 13:09 left foot sx; triple bypass; iw - Immunization history:: Adult Immunizations up to date. - Social history:: Smoking status: Patient denies any tobacco usage or history of. ROS: 13:03 Eyes: Negative for injury, pain, redness, and discharge, ENT: Negative for injury, jr8 pain, and discharge, Neck: Negative for injury, pain, and swelling, Cardiovascular: Negative for chest pain, palpitations, and edema, Respiratory: Negative for shortness of breath, cough, wheezing, and pleuritic chest pain, Abdomen/GI: Negative for abdominal pain, nausea, vomiting, diarrhea, and constipation, Back: Negative for injury and pain, Neuro: Negative for headache, weakness, numbness, tingling, and seizure. 13:03 MS/extremity: Positive for erythema, pain, swelling, tenderness, of the right foot. Exam: 13:03 Eyes: Pupils equal round and reactive to light, extra-ocular motions intact. Lids and jr8 lashes normal. Conjunctiva and sclera are non-icteric and not injected. Cornea within normal limits. Periorbital areas with no swelling, redness, or edema. ENT: Nares patent. No nasal discharge, no septal abnormalities noted. Tympanic membranes are normal and external auditory canals are clear. Oropharynx with no redness, swelling, or masses, exudates, or evidence of obstruction, uvula midline. Mucous membranes moist. Neck: Trachea midline, no thyromegaly or masses palpated, and no cervical lymphadenopathy. Supple, full range of motion without nuchal rigidity, or vertebral point tenderness. No Meningismus. Cardiovascular: Regular rate and rhythm with a normal S1 and S2. No gallops, murmurs, or rubs. Normal PMI, no JVD. No pulse deficits. Respiratory: Lungs have equal breath sounds bilaterally, clear to auscultation and percussion. No rales, rhonchi or wheezes noted. No increased work of breathing, no retractions or nasal flaring. Abdomen/GI: Soft, non-tender, with normal bowel sounds. No distension or tympany. No guarding or rebound. No evidence of tenderness throughout. Back: No spinal tenderness. No costovertebral tenderness. Full range of motion. Skin: Warm, dry with normal turgor. Normal color with no rashes, no lesions, and no evidence of cellulitis. Neuro: Awake and alert, GCS 15, oriented to person, place, time, and situation. Cranial nerves II-XII grossly intact. Motor strength 5/5 in all extremities. Sensory grossly intact. Cerebellar exam normal. Normal gait. 13:03 Musculoskeletal/extremity: Extremities: grossly normal except: noted in the right foot: Patient has gangrene noted to 2nd digit with surround erythema and color change to other toes extending up through dorsum of foot , ROM: intact in all extremities, Pulses: noted to be 1+ in the right dorsalis pedis artery and left dorsalis pedis artery, Sensation intact. Vital Signs: 12:32 BP 134 / 74; Pulse 102; Resp 16 S; Temp 98.7; Pulse Ox 98% on R/A; Weight 102 kg; iw Height 6 ft. 1 in. (185.42 cm); Pain 0/10; 13:30 BP 176 / 89; Pulse 96; Resp 19; Pulse Ox 99% on R/A; em 14:33 BP 193 / 97; Pulse 92; Resp 18; Pulse Ox 98% on R/A; em 15:17 BP 173 / 83; Pulse 94; Resp 18; Pulse Ox 99% on R/A; em 12:32 Body Mass Index 29.67 (102.00 kg, 185.42 cm) iw MDM: 12:30 Patient medically screened. [facility] 13:03 Data reviewed: vital signs, nurses notes, lab test result(s), EKG, radiologic studies, jr8 plain films. Data interpreted: Pulse oximetry: on room air is 98 %. Interpretation: normal. Counseling: I had a detailed discussion with the patient and/or guardian regarding: the historical points, exam findings, and any diagnostic results supporting the discharge/admit diagnosis, lab results, radiology results, the need for further work-up and treatment in the hospital. ED course: Spoke with Dr. Mandujano who has been seeing patient. Accepted for consult and will admit to Dr. Howell . 06/08 12:43 Order name: Basic Metabolic Panel; Complete Time: 14:06/08 12:43 Order name: CBC with Diff; Complete Time: 14:06/08 12:43 Order name: LFT's; Complete Time: 14:06/08 12:43 Order name: Magnesium; Complete Time: 14:06/08 12:43 Order name: NT PRO-BNP; Complete Time: 14:06/08 12:43 Order name: PT-INR; Complete Time: 13:27 06/08 12:44 Order name: Blood Culture Adult (2) 06/08 12:44 Order name: CRP; Complete Time: 14:06/08 12:44 Order name: Procalcitonin; Complete Time: 14:01 jr8 06/08 13:09 Order name: Wound Culture EDMS 06/08 13:28 Order name: Manual Differential; Complete Time: 14:01 EDMS 06/08 14:52 Order name: Basic Metabolic Panel EDMS 06/08 14:52 Order name: Basic Metabolic Panel EDMS 06/08 14:52 Order name: CBC with Automated Diff EDMS 06/08 12:43 Order name: XRAY Chest (1 view); Complete Time: 13:27 jr8 06/08 12:43 Order name: EKG; Complete Time: 12:44 jr8 06/08 12:43 Order name: Cardiac monitoring; Complete Time: 13:06 jr8 06/08 12:43 Order name: EKG - Nurse/Tech; Complete Time: 13:06 jr8 06/08 12:43 Order name: IV Saline Lock; Complete Time: 13:07 jr8 06/08 14:52 Order name: CONS Pharmacy Consult EDMS 06/08 14:52 Order name: CONS Pharmacy Consult EDMS 06/08 14:52 Order name: CONS Pharmacy Consult EDMS 06/08 14:52 Order name: CONS Physician Consult EDMS 06/08 14:52 Order name: NPO EDMS 06/08 14:52 Order name: CBC with Automated Diff EDMS 06/08 14:52 Order name: Procalcitonin EDMS 06/08 14:52 Order name: Procalcitonin EDMS 06/08 12:43 Order name: Labs collected and sent; Complete Time: 13:07 jr8 06/08 12:43 Order name: O2 Per Protocol; Complete Time: 13:07 jr8 06/08 12:43 Order name: O2 Sat Monitoring; Complete Time: 13:07 Administered Medications: 13:15 Drug: Cefepime 1 grams Route: IVPB; Rate: 200 ml/hr; Infused Over: 30 mins; Site: right em forearm; 13:49 Follow up: Response: No adverse reaction; IV Status: Completed infusion; IV Intake: em 100ml 13:48 Drug: vancoMYCIN 1 grams Route: IVPB; Infused Over: 2 hrs; Site: right forearm; em 14:54 Follow up: IV Status: Infusion continued upon admission em 15:17 Drug: NS 0.9% 500 ml Route: IV; Rate: bolus; Site: right forearm; em Disposition: 17:23 Co-signature as Attending Physician, Cristofer Huynh MD. rn Disposition: 06/09/19 13:10 Hospitalization ordered by Tao Howell for Inpatient Admission. Preliminary diagnosis are Cellulitis of right lower limb, Open wound of foot, Gangrene, not elsewhere classified. - Bed requested for Telemetry/MedSurg (Inpatient). - Status is Inpatient Admission. em - Condition is Stable. - Problem is new. - Symptoms are unchanged. Signatures: Dispatcher [employer] EDVazquez Loza, SUNITA DORSEY em Chetna Ramachandran RN RN iw Nieto, Roman, MD MD rn Roszak, Josh, LEW HACKETT jr8 Billie Lezama Corrections: (The following items were deleted from the chart) 13:33 13:10 Hospitalization Ordered by Tao Howell MD for Inpatient Admission. Preliminary eb diagnosis is Cellulitis of right lower limb; Open wound of foot; Gangrene, not elsewhere classified. Bed requested for Telemetry/MedSurg (Inpatient). Status is Inpatient Admission. Condition is Stable. Problem is new. Symptoms are unchanged. jr8 15:34 13:33 06/09/2019 13:10 Hospitalization Ordered by Tao Howell MD for Inpatient em Admission. Preliminary diagnosis is Cellulitis of right lower limb; Open wound of foot; Gangrene, not elsewhere classified. Bed requested for Telemetry/MedSurg (Inpatient). Status is Inpatient Admission. Condition is Stable. Problem is new. Symptoms are unchanged. eb
[2019-06-09 13:11] LABS: Absolute Lymphocytes (CBC) 0.7 K/uL (0.7-4.9); Basophils % 0.5 % (0-1.3); Hematocrit 36.4 % (39.6-49.0); Lymphocytes % 2.9 % (15.3-44.8); MPV 8.1 fL (7.6-11.3); RBC Red Blood Cell Count 3.97 M/uL (4.33-5.43)
[2019-06-09 13:13] LABS: Protime INR 1.36
--- NOTE | 2019-06-09 13:27 | RAD REPORT ---
EXAM DESCRIPTION: Alex Single View06/09/2019 1:17 pm CLINICAL HISTORY: Hypertension/preoperative exam for foot surgery COMPARISON: 2018 FINDINGS: The lungs appear clear of acute infiltrate. The heart is borderline enlarged. Postsurgica l changes involve the chest IMPRESSION: No acute abnormalities displayed
[2019-06-09 13:48] LABS: Blood Morphology Comment NOT SEEN (NOT SEEN); Platelet Estimate ADEQ
[2019-06-09 13:49] LABS: Albumin 2.4 g/dL (3.4-5.0); Bilirubin Direct 0.1 mg/dL (0-0.2); Bilirubin Total 0.3 mg/dL (0.2-1.0); Magnesium 2.1 mg/dL (1.8-2.4); Protein, Total 8.1 g/dL (6.4-8.2)
[2019-06-09] MEDS ORDERED: NA CHLORIDE 0.9% 1,000 ML IV ONE (14:41)
[2019-06-09] MEDS ORDERED: MORPHINE 2 MG/ML SYR IV PRN (14:48)
[2019-06-09] MEDS ORDERED: NA CHLORIDE 0.9% 1,000 ML IV SCH ×2 (14:48→15:00)
[2019-06-09] MEDS ORDERED: ONDANSETRON 4 MG/2 ML VIAL IV PRN (14:48)
--- NOTE | 2019-06-09 14:48 | P.HP ---
Certification for Inpatient Patient admitted to: Inpatient With expected LOS: >2 Midnights Practitioner: I am a practitioner with admitting privileges, knowledge of patient current condition, hospital course, and medical plan of care. Services: Services provided to patient in accordance with Admission requirements found in Title 42 Section 412.3 of the Code of Federal Regulations Patient History Date of Service: 06/09/19 Reason for admission: Right foot cellulitis History of Present Illness: Patient is a 58-year-old male with past medical history of hypertension, end- stage renal disease on dialysis Tuesday at that the [facility] diabetes recently had amputation of his 2nd toe right foot by Dr. Amado and has been on oral antibiotics now for 1 week with worsening condition. Patient reports erythema of his right foot swelling warmth and pain. Patient denies any fevers chills nausea vomiting. No shortness of breath or cough. No exposure to recent pandemic virus. Patient's symptoms are constant moderate progressively worsening. Patient came into the ER for further evaluation. In the ER his vital signs were stable. [place] white blood [place] [address] and had an elevated pro calcitonin. Patient was started on IV antibiotics. Patient was referred for admission When seen in the ER he was awake alert oriented x3 in some mild distress Allergies No Known Allergies Allergy (Verified 02/27/18 11:04) Home Medications: Spironolactone [Aldactone*] 25 mg PO DAILY 07/08/16 carvediloL [Carvedilol] 12.5 mg PO BID 11/26/16 Gabapentin 300 mg PO DAILY 02/27/18 glipiZIDE [Glipizide] 10 mg PO BID 02/27/18 Calcium Acetate [Phoslo*] 1,334 mg PO TIDWM #180 cap 03/03/18 Hydralazine [Apresoline*] 25 mg PO BID 02/06/19 - Past Medical/Surgical History Diabetic: Yes -: HTN -: DM, no insulin for over 1 month -: Neuropathy -: End-stage renal disease on dialysis -: Transmet amputation left foot 2009 -: Back I&D 2016 x2 -: Cardiac bypass - Family History Family History: Reviewed- Non-Contributory (Matt) - Family History Father -: Diabetes Mother -: GI disease Notes: Patient states that mother is in the hospital with a unknow GI problem Sister -: GI disease - Social History Smoking Status: Never smoker Alcohol use: No CD- Drugs: No Caffeine use: Yes Place of Residence: Home Review of Systems 10-point ROS is otherwise unremarkable Physical Examination - Vital Signs Temperature: 98.7 F Blood Pressure: 134/74 Pulse: 102 Respirations: 16 Pulse Ox (%): 98 - Physical Exam General: Alert, Oriented x3, Mild distress, Obese, Other (Ill-appearing male) HEENT: Atraumatic, PERRLA, Mucous membr. moist/pink, EOMI, Sclerae nonicteric Neck: Supple, JVD not distended Respiratory: Clear to auscultation bilaterally, Normal air movement, Other (No use of accessory muscles or stridor) Cardiovascular: Normal pulses, Normal S1 S2, Edema, Irregular heart rate/rhythm (Sinus tachycardia) Gastrointestinal: Normal bowel sounds, Soft and benign, Non-distended, No tenderness Musculoskeletal: Tenderness Integumentary: Erythema, Warmth, Diabetic ulcer (Right foot erythema edema and warm to touch) Neurological: Normal speech, Normal strength at 5/5 x4 extr, Normal tone, Cranial nerves 3-12 intact, Normal affect, Abnormal sensation - Studies Laboratory Data (last 24 hrs) 06/09/19 13:00: PT 15.9 H, INR 1.36 06/09/19 13:00: WBC 22.5 H*, Hgb 12.0 L, Hct 36.4 L, Plt Count 305 06/09/19 13:00: Sodium 137, Potassium 4.0, BUN 45 H, Creatinine 8.05 H*, Glucose 139 H, Magnesium 2.1 D, Total Bilirubin 0.3, AST 18, ALT 18, Alkaline Phosphatase 72 Imagings Data: Chest x-ray shows no acute abnormality Assessment and Plan - Plan # acute right foot cellulitis with recent amputation of the 2nd toe. Will continue on broad-spectrum IV antibiotics. Consult surgery Dr. Mandujano. Patient may require more debridement. Follow up on blood cultures and will obtain wound cultures #End stage disease on hemodialysis consult nephrology patient's last dialysis was Tuesday. Avoid nephrotoxins monitor creatinine level. # diabetes mellitus type 2 with hyperglycemia and end-stage renal disease. Will start on sliding scale insulin and monitor blood glucose levels. # essential hypertension. Monitor blood pressure and resume home medications # diabetic neuropathy. Will continue home medications.. DVT prophylaxis with SCDs no chemical anticoagulation due to possible surgical intervention - Advance Directives Does patient have a Living Will: No Does patient have a Durable POA for Healthcare: No
[2019-06-09] MEDS ORDERED: NA CHLORIDE 0.9% 500 ML ONE (15:19)
[2019-06-09] MEDS ORDERED: HYDRALAZINE HCL 20 MG/ML VIAL IV PRN (15:54)
[2019-06-09 16:17] VITALS: BMI 29.4
[2019-06-09] MEDS: INSULIN -REGULAR HUMAN 50 UNIT/0.5 ML ML SQ SCH ×2 (16:29→20:36)
[2019-06-09] MEDS ORDERED: VANCOMYCIN/NS 1 gm 1 GM/250 ML BAG IVPB SCH ×2 (17:15→18:00)
[2019-06-09] MEDS: COLLAGENASE 30 GM OINTMENT TOP SCH ×2 (17:45→20:35)
[2019-06-09] MEDS: carvediloL 12.5 MG TAB PO SCH (20:34)
[2019-06-09] MEDS: HYDRALAZINE HCL 25 MG TABLET PO SCH (20:34)
[2019-06-09] MEDS: SODIUM HYPOCHLORITE 0.5% 473 ML TOP SCH (20:35)
[2019-06-09] MEDS: ACETAMINOPHEN 500 MG TAB PO PRN (20:36)
[2019-06-09] MEDS ORDERED: HOME MED 1 EA UNK (Glipizide [Glipizide Er] 10 MG) PO SCH (21:00)
[2019-06-10 06:15] LABS: Absolute Lymphocytes (CBC) 1.2 K/uL (0.7-4.9); Basophils % 0.8 % (0-1.3); Hematocrit 31.8 % (39.6-49.0); Lymphocytes % 6.6 % (15.3-44.8); RBC Red Blood Cell Count 3.41 M/uL (4.33-5.43)
[2019-06-10 06:35] LABS: Potassium 3.7 mmol/L (3.5-5.1)
[2019-06-10] MEDS: INSULIN -REGULAR HUMAN 50 UNIT/0.5 ML ML SQ SCH ×4 (07:30→20:08)
--- NOTE | 2019-06-10 07:43 | EKG ---
Test Date: 2019-06-09 Test Time: 13:18:42 Health Data Analyst: RADHA MEASUREMENT RESULTS: Intervals: Rate: 96 DC: 120 QRSD: 84 QT: 374 QTc: 472 [place]: P: 53 DC: 120 QRS: 11 T: 40 INTERPRETIVE STATEMENTS: Normal sinus rhythm Possible Inferior infarct, age undetermined Possible Anterior infarct, age undetermined Abnormal ECG Compared to ECG 02/06/2019 08:58:20 Myocardial infarct finding now present Electronically Signed On 06-10-19 07:43:25 CDT by Eliot Aldridge
--- NOTE | 2019-06-10 07:56 | P.PN ---
Subjective Date of Service: 06/10/19 Chief Complaint: Right foot cellulitis Subjective: Improving Patient seen and examined chart reviewed and case discussed with RN. Patient states his foot is improved slightly. Pain is well controlled. Afebrile overnight Review of Systems 10-point ROS is otherwise unremarkable Integumentary: As per HPI Physical Examination - Vital Signs Temperature: 98 F Blood Pressure: 150/69 Pulse: 69 Respirations: 16 Pulse Ox (%): 97 - Physical Exam General: Alert, In no apparent distress, Oriented x3, Other (Ill-appearing male) HEENT: Atraumatic, PERRLA, EOMI Neck: Supple, JVD not distended Respiratory: Clear to auscultation bilaterally, Normal air movement Cardiovascular: Normal pulses, Regular rate/rhythm, Normal S1 S2, Edema (Right foot) Gastrointestinal: Normal bowel sounds, Soft and benign, Non-distended, No tenderness Musculoskeletal: No tenderness Integumentary: Erythema (Right foot.), Warmth, Diabetic ulcer (Right foot) Neurological: Normal speech, Normal strength at 5/5 x4 extr, Normal tone, Normal affect - Studies Laboratory Data (last 24 hrs) 06/09/19 13:00: PT 15.9 H, INR 1.36 06/09/19 13:00: WBC 22.5 H*, Hgb 12.0 L, Hct 36.4 L, Plt Count 305 06/09/19 13:00: Sodium 137, Potassium 4.0, BUN 45 H, Creatinine 8.05 H*, Glucose 139 H, Magnesium 2.1 D, Total Bilirubin 0.3, AST 18, ALT 18, Alkaline Phosphatase 72 Medications List Reviewed: Yes Assessment And Plan - Plan # acute right foot cellulitis with recent amputation of the 2nd toe. WBCs trending down slowly. Pro calcitonin slightly elevated at 1.7. No signs of sepsis Will continue on broad-spectrum IV antibiotics. Consulted surgery Dr. Mandujano. Patient may require more debridement. Follow up on blood cultures and wound cultures-pending at this time #End stage disease on hemodialysis consulted nephrology patient's last dialysis was Tuesday. Avoid nephrotoxins monitor creatinine level. # diabetes mellitus type 2 with hyperglycemia and end-stage renal disease. Will start on sliding scale insulin and monitor blood glucose levels. # essential hypertension. Monitor blood pressure and continue home medications. Required hydralazine p.r.n. yesterday for blood pressure in the 200 systolic. Improved with home medications # diabetic neuropathy. Will continue home medications. DVT prophylaxis with SCDs no chemical anticoagulation due to possible surgical intervention
[2019-06-10 08:23] LABS: Urine Appearance CLEAR; Urine Bilirubin NEGATIVE (NEG); Urine Blood NEGATIVE (NEG); Urine Color YELLOW; Urine Glucose 2+ (NEG); Urine Protein 3+ (NEG); Urine Specific Gravity 1.015 (1.005-1.030); Urine Urobilinogen 0.2 mg/dL (0.2-1.0); Urine pH 7.5 (5.0-7.0)
[2019-06-10 08:30] LABS: Urine Microscopic Reflex ORDER UMIC
[2019-06-10 08:44] LABS: Urine Bacteria <20 /HPF (NONE SEEN); Urine Culture Reflex Order NOT NEEDED; Urine RBC NONE SEEN /HPF (NONE SEEN)
[2019-06-10] MEDS: SODIUM HYPOCHLORITE 0.5% 473 ML TOP SCH (09:00)
[2019-06-10] MEDS: COLLAGENASE 30 GM OINTMENT TOP SCH (09:00)
[2019-06-10] MEDS ORDERED: VANCOMYCIN/NS 1 gm 1 GM/250 ML BAG IVPB SCH (09:00)
[2019-06-10] MEDS ORDERED: CEFEPIME 1 GM/VIAL IV SCH (09:00)
[2019-06-10] MEDS: GABAPENTIN 300 MG CAP PO SCH (09:35)
[2019-06-10] MEDS: GLIPIZIDE S.A. 5 MG TAB PO SCH ×2 (09:35→16:52)
[2019-06-10] MEDS: HYDRALAZINE HCL 25 MG TABLET PO SCH ×2 (09:35→20:09)
[2019-06-10] MEDS: carvediloL 12.5 MG TAB PO SCH ×2 (09:35→20:09)
[2019-06-10] MEDS: AMLODIPINE 10 MG TAB PO SCH (09:36)
[2019-06-10] MEDS: FUROSEMIDE 40 MG TABLET PO SCH (09:36)
[2019-06-10] MEDS: SPIRONOLACTONE 25 MG TABLET PO SCH (09:36)
--- NOTE | 2019-06-10 11:01 | P.PN ---
Subjective Date of Service: 06/10/19 Chief Complaint: Right foot cellulitis Subjective: Improving (Patient feels better, has less pain and less redness, no discharge. Dressings were only applied yesterday with kerlix.) Physical Examination - Vital Signs Temperature: 98.6 F Blood Pressure: 153/71 Pulse: 82 Respirations: 19 Pulse Ox (%): 96 - Physical Exam General: Alert, In no apparent distress, Cooperative Musculoskeletal: Other (RIGHT foot - Dressings were not applied correctly, only wrapped, no dakins, no santyl, no bactoban, no packing, open wound was simply covered. Redness is improved minimally from yesterday, no drainage from 2nd toe amputation site. 3rd toe continues to appear w/ cellulitis.) - Studies Laboratory Data (last 24 hrs) 06/09/19 13:00: PT 15.9 H, INR 1.36 06/09/19 13:00: WBC 22.5 H*, Hgb 12.0 L, Hct 36.4 L, Plt Count 305 06/09/19 13:00: Sodium 137, Potassium 4.0, BUN 45 H, Creatinine 8.05 H*, Glucose 139 H, Magnesium 2.1 D, Total Bilirubin 0.3, AST 18, ALT 18, Alkaline Phosphatase 72 Medications List Reviewed: Yes Assessment And Plan - Current Problems (Diagnosis) (1) Wound infection after surgery Current Visit: Yes Status: Acute Plan: - Patient did not have dressing applied correctly, I have discussed with nursing staff, patient, and charge nurse - continue IV antibiotics - serial exams - will reconsider surgery if wound stalls or does not continue to improve. - Patient continues to want non-operative management at this time. - non-weight bearing - I have stressed the need to be compliant with blood glucose control and compliance with medical treatment when outpatient as well
--- NOTE | 2019-06-10 11:02 | P.CNS ---
Date of Consult: 06/10/19 Reason for Consult: ESRD , fluid overload Chief Complaint: Right foot cellulitis History of Present Illness: A 58-year-old man legaly blind, with PMhx of DM with retinopathy, HTN PVD and ESRD on HD MWF Pt presented for Rt foot gangernous changes pt with rt foot infection, he had recent Rt 2nd toe amputation was in PO Abx denied chest pain, palpitation, nausea, vomiting, diarrhea or constipation Physical exam general: AAOX3, NAD , obese Neck; Supple, No elevated JVD hear: RRR, normal S1,2 no murmur or rub Chest: CTAB, no rlaes or wheezes Abdomen: Soft , Nt Extremities No edema or ulcer End-stage renal disease on HD MWF HD as per schedule renal dose meds Anemia of chronic disease will resume epogen Rt foot infections cont Abx monitor Vanco level Surgery consulted MBD will resume binders HTN Controlled cont current meds DM as per PCP total time spent 45 min Allergies No Known Allergies Allergy (Verified 02/27/18 11:04) Home Medications: Amlodipine Besylate 10 mg PO DAILY 06/09/19 Furosemide 40 mg PO DAILY 06/09/19 Gabapentin 300 mg PO DAILY 06/09/19 Glipizide [Glipizide ER] 10 mg PO BID 06/09/19 Hydralazine [Apresoline] 25 mg PO BID 06/09/19 Spironolactone 25 mg PO DAILY 06/09/19 carvediloL [Carvedilol] 12.5 mg PO BID 06/09/19 - Past Medical/Surgical History Diabetic: Yes -: HTN -: DM, no insulin for over 1 month -: Neuropathy -: End-stage renal disease on dialysis -: Transmet amputation left foot 2009 -: Back I&D 2016 x2 -: Cardiac bypass - Family History Father Medical History: Diabetes Mother Medical History: GI disease Notes: Patient states that mother is in the hospital with a unknow GI problem Sister Medical History: GI disease - Social History Smoking Status: Current some day smoker Alcohol use: No CD- Drugs: No Caffeine use: Yes Place of Residence: Home Physical Examination Temp Pulse Resp BP Pulse Ox 98.6 F 82 19 153/71 H 96 06/10/19 08:00 06/10/19 08:00 06/10/19 08:00 06/10/19 08:00 06/10/19 08:00 Laboratory Data (last 24 hrs) 06/09/19 13:00: PT 15.9 H, INR 1.36 06/09/19 13:00: WBC 22.5 H*, Hgb 12.0 L, Hct 36.4 L, Plt Count 305 06/09/19 13:00: Sodium 137, Potassium 4.0, BUN 45 H, Creatinine 8.05 H*, Glucose 139 H, Magnesium 2.1 D, Total Bilirubin 0.3, AST 18, ALT 18, Alkaline Phosphatase 72
[2019-06-10] MEDS: MUPIROCIN 2% OINT 22GM TUBE TOP SCH (11:03)
[2019-06-10] MEDS ORDERED: EPOETIN 4,000 UNIT/ML VIAL IV SCH (11:15)
--- NOTE | 2019-06-10 12:07 | CON ---
Date of Consultation: 06/09/2019 Brief History Of Present Illness: Patient is a 58-year-old male with past medical history o f hypertension, end-stage renal disease, on dialysis Tuesday, Tuesday, and Tuesday, who had a recent amputation of his second toe of his right foot following an area of infection and necrosis to the tip of that toe. He had been taken to the OR approximately 2 weeks ago and had been noted to be somewha t noncompliant with postop instructions and wound care. His sutures have been ripped out at the time of inspection in clinic and there was evidence of an infection at that point, very superficial cellu litis at that time. I therefore removed all the sutures and initiated wound care with Santyl, Dakin solution, elevation and Bactrim p.o. He comes in with worsening condition and as such, he was noted increased redness and swelling to his foot with some warmth and minimal pain. No other constitutiona l complaints. Notes no fever or chills. No exposure to COVID-19 by his description. As such, he wa s admitted for IV antibiotics, wound care and evaluation. Past Medical History And Surgical History: Significant for diabetes, hypertension, neuropathy, end-s tage renal disease, on dialysis. He had a transmetatarsal amputation of left foot in 2009. I and D was back on 2016 and cardiac bypass. Amputation approximately 2 weeks ago, right foot second toe, partial amputation of the second toe. Allergies: NO KNOWN DRUG ALLERGIES. Home Medications: Aldactone, carvedilol, gabapentin, glipizide, PhosLo, Apresoline. Family History: Consistent with diabetes and GI disease. Social History: Denies smoking, alcohol, recreational drug use. Review of Systems: A 10-point review of systems other than HPI, denies. Physical Examination: Vital Signs: At the time of examination, his BMI is approximately 30. His vital signs were a temper ature of 98.6, his heart rate was 91, respiratory rate 16, blood pressure 112/79, SpO2 of 100% on hannah m air. General: He is awake, alert, oriented. Psychiatric: He is appropriate and conversive. HEENT: Normocephalic. His sclerae were anicteric. His mucous membranes are moist. His oropharynx is clear. Neck: Supple. No JVD. Chest: Normal expansion and excursion. Extremities: Focused examination of his foot shows cellulitis extending beyond the mid foot at this point with some streaking in the area consistent with infection. His wound has no drainable collecti ons, but remains open. It was not packed and not dressed properly. In addition, the adjacent toe/th ird toe on the right foot appears to be somewhat discolored as well. His pulses were adequate at thi s point though and palpable in the dorsalis pedis. The remainder of his examination is unremarkable. He has obvious transmetatarsal amputation on the contralateral foot. Laboratory Data: Reveals a white blood cell count of 22.5, hemoglobin is 12.0, hematocrit of 36.4, p latelet count was 305, neutrophils are 90%. His PT 15.9, INR 1.36. Sodium is 137, potassium 4.0, ch loride 101, carbon dioxide 26, BUN 45, creatinine 8.05, glucose is 139. His calcium 8.7, total bilir ubin 0.3. His proBNP was 63,142. His C-reactive protein was 249. Procalcitonin was 1.41. He had i maging of his chest, which was officially read as no acute abnormalities displayed. Assessment And Plan: This is a 58-year-old male who comes in with a postoperative infection of his r ight foot and toe area. 1.IV fluid hydration to be controlled by Nephrology/primary medical doctor. 2.IV antibiotics with vancomycin to initiate. 3.Cultures of the area. 4.Begin Dakin's, Santyl and mupirocin wound care with wraps and elevation to see if we can prevent a nother surgical debridement of this area as the edges appear viable of the skin with good bleeding at the edges. However, I have explained the risks, benefits, and alternatives, that the patient may re quire a larger amputation and possibly require another toe amputation or perhaps leading up to midfoo t amputation if this does not resolve quickly. The patient stated he does not want any surgical inte rvention at this time and would like to try wound care and I have explained that he can get progressi vely sick with this and he can ultimately need a [id number] amputation. However, the patient at this point would like to proceed with nonoperative management as described above and will consider earlene hoffman at a later date, but at this point does not want any surgical intervention. I will do serial e xams of this area and continue wound care until the wound clears itself and if it needs another surgi magdaleno debridement or amputation, we will re-address that in the future when the patient is willing to c onsider it, but we will have that discussion as needed. Thank you for this interesting consult. JOSE J Voice ID: [id number] Report ID: [id number]
[2019-06-10] MEDS: SEVELAMER CARBONATE 800 MG TABLET PO SCH ×2 (12:09→16:52)
[2019-06-10] MEDS: HEPARIN 5000 UNIT/ML 1 ML VIAL SQ SCH (20:10)
[2019-06-10] MEDS: ACETAMINOPHEN 500 MG TAB PO PRN (20:10)
[2019-06-11 04:15] LABS: RBC Red Blood Cell Count 3.49 M/uL (4.33-5.43)
[2019-06-11 04:16] LABS: Absolute Lymphocytes (CBC) 1.1 K/uL (0.7-4.9); Basophils % 1.1 % (0-1.3); Hematocrit 32.2 % (39.6-49.0); Lymphocytes % 5.3 % (15.3-44.8)
[2019-06-11 04:58] LABS: Albumin 1.9 g/dL (3.4-5.0); Bilirubin Total 0.2 mg/dL (0.2-1.0); Potassium 4.2 mmol/L (3.5-5.1); Protein, Total 6.9 g/dL (6.4-8.2)
[2019-06-11] MEDS: SEVELAMER CARBONATE 800 MG TABLET PO SCH ×3 (07:30→17:05)
[2019-06-11] MEDS: INSULIN -REGULAR HUMAN 50 UNIT/0.5 ML ML SQ SCH ×4 (07:30→22:20)
[2019-06-11] MEDS: HEPARIN 5000 UNIT/ML 1 ML VIAL SQ SCH ×2 (07:32→21:39)
[2019-06-11] MEDS: GLIPIZIDE S.A. 5 MG TAB PO SCH ×2 (08:00→16:48)
--- NOTE | 2019-06-11 08:18 | P.PN ---
Subjective Date of Service: 06/11/19 Chief Complaint: Right foot cellulitis Subjective: No new changes Patient seen and examined chart reviewed and case discussed with RN and Dr. Mandujano. Denies any acute events overnight. Pain is well controlled. Afebrile overnight Review of Systems 10-point ROS is otherwise unremarkable Integumentary: As per HPI Physical Examination - Vital Signs Temperature: 98.9 F Blood Pressure: 155/77 Pulse: 84 Respirations: 14 Pulse Ox (%): 93 - Physical Exam General: Alert, In no apparent distress, Oriented x3, Other (Ill-appearing male) HEENT: Atraumatic, PERRLA, EOMI Neck: Supple, JVD not distended Respiratory: Clear to auscultation bilaterally, Normal air movement Cardiovascular: Normal pulses, Regular rate/rhythm, Normal S1 S2, Edema Gastrointestinal: Normal bowel sounds, Soft and benign, Non-distended, No tenderness Musculoskeletal: No tenderness Integumentary: Erythema (Right foot bandaged. 2nd toe amputation) Neurological: Normal speech, Normal strength at 5/5 x4 extr, Normal tone, Normal affect, Abnormal sensation - Studies Laboratory Last Values WBC 19.7 K/uL (4.3-10.9) H 06/11/19 04:01 RBC 3.49 M/uL (4.33-5.43) L 06/11/19 04:01 Hgb 10.4 g/dL (13.6-17.9) L 06/11/19 04:01 Hct 32.2 % (39.6-49.0) L 06/11/19 04:01 MCV 92.3 fL (80-100) 06/11/19 04:01 MCH 29.8 pg (27.0-35.0) 06/11/19 04:01 MCHC 32.2 g/dL (32.0-36.0) 06/11/19 04:01 RDW 14.6 % (12.1-15.2) 06/11/19 04:01 Plt Count 297 K/uL (152-406) 06/11/19 04:01 MPV 8.0 fL (7.6-11.3) 06/11/19 04:01 Neutrophils % 85.2 % (41.7-73.7) H 06/11/19 04:01 Lymphocytes % 5.3 % (15.3-44.8) L 06/11/19 04:01 Monocytes % 6.0 % (3.3-12.3) 06/11/19 04:01 Eosinophils % 2.4 % (0-4.4) 06/11/19 04:01 Basophils % 1.1 % (0-1.3) 06/11/19 04:01 Absolute Neutrophils 16.8 K/uL (1.8-8.0) H 06/11/19 04:01 Segmented Neutrophils 92 % (40-80) H 06/09/19 13:00 Absolute Lymphocytes 1.1 K/uL (0.7-4.9) 06/11/19 04:01 Lymphocytes 5 % (15-42) L 06/09/19 13:00 Monocytes 3 % (0-10) 06/09/19 13:00 Absolute Monocytes 1.2 K/uL (0.1-1.3) 06/11/19 04:01 Absolute Eosinophils 0.5 K/uL (0-0.5) 06/11/19 04:01 Absolute Basophils 0.2 K/uL (0-0.5) 06/11/19 04:01 Morphology Comment Not seen (NOT SEEN) 06/09/19 13:00 PT 15.9 SECONDS (9.5-12.5) H 06/09/19 13:00 INR 1.36 06/09/19 13:00 Sodium 135 mmol/L (136-145) L 06/11/19 04:01 Potassium 4.2 mmol/L (3.5-5.1) 06/11/19 04:01 Chloride 99 mmol/L (98-107) 06/11/19 04:01 Carbon Dioxide 24 mmol/L (21-32) 06/11/19 04:01 BUN 75 mg/dL (7-18) H 06/11/19 04:01 Creatinine 10.60 mg/dL (0.55-1.3) H* D 06/11/19 04:01 Estimated GFR 5 mL/min (=/>90) L 06/11/19 04:01 Glucose 119 mg/dL (74-106) H 06/11/19 04:01 POC Glucose 182 mg/dl (65-120) H 06/10/19 19:30 Calcium 7.7 mg/dL (8.5-10.1) L 06/11/19 04:01 Magnesium 2.1 mg/dL (1.8-2.4) D 06/09/19 13:00 Total Bilirubin 0.2 mg/dL (0.2-1.0) 06/11/19 04:01 Direct Bilirubin 0.1 mg/dL (0-0.2) 06/09/19 13:00 AST 15 U/L (15-37) 06/11/19 04:01 ALT 14 U/L (12-78) 06/11/19 04:01 Alkaline Phosphatase 75 U/L (45-117) 06/11/19 04:01 C-Reactive Protein 249.00 mg/L (<3.00) H 06/09/19 13:00 NT-Pro-B Natriuret Pep 49648 pg/mL (<125) H 06/09/19 13:00 Serum Total Protein 6.9 g/dL (6.4-8.2) 06/11/19 04:01 Albumin 1.9 g/dL (3.4-5.0) L 06/11/19 04:01 Globulin 5.0 g/dL (2.3-3.5) H 06/11/19 04:01 Albumin/Globulin Ratio 0.4 (1.1-1.8) L 06/11/19 04:01 Procalcitonin 1.79 ng/mL (<0.50) H 06/10/19 05:31 Urine Color Yellow 06/10/19 07:30 Urine Appearance Clear 06/10/19 07:30 Urine pH 7.5 (5.0-7.0) H 06/10/19 07:30 Ur Specific [place] 1.015 (1.005-1.030) 06/10/19 07:30 Glucose (UA)(Auto) 2+ (NEG) H 06/10/19 07:30 Urine Ketones Negative (NEG) 06/10/19 07:30 Urine Blood Negative (NEG) 06/10/19 07:30 Urine Nitrite Negative (NEG) 06/10/19 07:30 Urine Bilirubin Negative (NEG) 06/10/19 07:30 Urine Urobilinogen 0.2 mg/dL (0.2-1.0) 06/10/19 07:30 Ur Leukocyte Esterase Negative (NEG) 06/10/19 07:30 Urine RBC None seen /HPF (NONE SEEN) 06/10/19 07:30 Urine WBC <5 /HPF (<5) 06/10/19 07:30 Ur Squamous Epith Cells <5 /HPF (NONE SEEN) 06/10/19 07:30 Urine Bacteria <20 /HPF (NONE SEEN) 06/10/19 07:30 Urine Culture Reflexed Not needed 06/10/19 07:30 Urine Total Protein 3+ (NEG) H 06/10/19 07:30 Microbiology Data (last 24 hrs): Blood culture No growth to date. Wound culture pending Medications List Reviewed: Yes Assessment And Plan - Plan # acute right foot cellulitis with recent amputation of the 2nd toe. WBCs trending back up cardiac 19,000. Pro calcitonin slightly elevated at 1.7. No clinical signs of sepsis. Patient is afebrile blood pressure is normal. Not tachycardic Will continue on broad-spectrum IV antibiotics. Consulted surgery Dr. Mandujano. Patient will likely require debridement. Follow up on blood cultures and wound cultures-pending at this time #End stage disease on hemodialysis consulted nephrology patient's last dialysis was Tuesday. Avoid nephrotoxins monitor creatinine level. # diabetes mellitus type 2 with hyperglycemia and end-stage renal disease. Continue sliding scale insulin and monitor blood glucose levels. # essential hypertension. Monitor blood pressure and continue home medications. Required hydralazine p.r.n. yesterday for blood pressure in the 200 systolic. Improved with home medications # diabetic neuropathy. Will continue home medications. DVT prophylaxis with heparin. Make NPO. Possible surgical debridement.
[2019-06-11] MEDS: MUPIROCIN 2% OINT 22GM TUBE TOP SCH ×2 (08:56→21:40)
[2019-06-11] MEDS: COLLAGENASE 30 GM OINTMENT TOP SCH (08:58)
[2019-06-11] MEDS: SODIUM HYPOCHLORITE 0.5% 473 ML TOP SCH (08:58)
[2019-06-11] MEDS: carvediloL 12.5 MG TAB PO SCH ×2 (09:02→21:40)
[2019-06-11] MEDS: FUROSEMIDE 40 MG TABLET PO SCH (09:03)
[2019-06-11] MEDS: SPIRONOLACTONE 25 MG TABLET PO SCH (09:03)
[2019-06-11] MEDS: HYDRALAZINE HCL 25 MG TABLET PO SCH ×2 (09:03→21:39)
[2019-06-11] MEDS: GABAPENTIN 300 MG CAP PO SCH (09:03)
[2019-06-11] MEDS: AMLODIPINE 10 MG TAB PO SCH (09:03)
[2019-06-11] MEDS ORDERED: MIDAZOLAM HCL 2 MG/2 ML INJ ONE (09:09)
[2019-06-11] MEDS ORDERED: FENTANYL CITR 100 MCG/2 ML ONE (09:09)
[2019-06-11] MEDS ORDERED: LIDOCAINE 2% MPF 5 ML VIAL ONE (09:09)
[2019-06-11] MEDS ORDERED: propofoL 200 MG/20 ML VIAL IV ONE (09:09)
[2019-06-11] MEDS: NA CHLORIDE 0.9% 1,000 ML ONE ×2 (09:20→09:26)
[2019-06-11] MEDS ORDERED: BUPIVACA 0.5%/EPI 0.0005%/PF 30 ML VIAL ONE (09:22)
[2019-06-11] MEDS ORDERED: Mastisol Adhesive Liq ONE (10:08)
--- NOTE | 2019-06-11 10:17 | P.OP ---
Preoperative diagnosis: Infection of RIGHT 3rd toe Postoperative diagnosis: Infection of RIGHT 3rd toe Primary procedure: Amputation of 3rd toe of RIGHT foot Secondary procedure: Debridement of necrotic tissue Anesthesia: GETA Estimated blood loss: <2cc Specimen: tissue sent ofr culture, 3rd toe with debridement tissue Findings: infection with necrosis to 3rd toe Complications: None Drain(s): Other (WVAC applied) Transferred to: Recovery Room Condition: Good
--- NOTE | 2019-06-11 11:08 | OP ---
Date of Procedure: 06/11/2019 Surgeon: Yfn Mandujano MD, Preoperative Diagnosis: Infection of third toe of the right foot. Postoperative Diagnosis: Infection of third toe of the right foot. Procedures: 1.Amputation of the third toe of the right foot. 2.Debridement of necrotic tissue. Anesthesia: General endotracheal. Estimated Blood Loss: Less than 2 mL. Specimens: Tissue sent off for culture. Third toe wound debridement tissue and second toe proximal phalanx. Findings: 1.Infection with necrosis of the third toe. 2.Infection extending to the second toe/phalanx. Complications: None. Drains: Wound VAC was applied. Disposition: Transferred to recovery room in good condition. Procedure In Detail: After informed consent was obtained, patient was brought to the operating room, prepped and draped in sterile fashion. After adequate anesthesia was achieved, a curvilinear incisi on was made around the second and third toes down through subcutaneous tissue with a 15-blade scalpel down. Dissection continued down to the metatarsophalangeal joint on both the second and third toes. I then used electrocautery to separate the planes and sharp dissection to remove the third toe all the way to the metatarsophalangeal joint as well as the residual proximal phalanx of the second toe a t the metatarsophalangeal joint. After the toe and specimen were removed, these were sent off for hector th culture and pathology specimen. I then removed debridement tissue on the both plantar and dorsal aspects of the foot down until there was good bleeding tissue, which was easily controlled with elect rocautery. After all necrotic tissue was debrided and all infected tissue was cleaned and removed, I irrigated the area copiously with multiple rounds of saline and inspected the area. There was no ad ditional infection appreciated at this time. I then sized a small wound VAC placed into the wound an d applied the negative pressure therapy device at this point. The patient tolerated the procedure we ll without complication, transferred to the PACU in good condition. All counts were correct at the e nd of the case. TK/MODL Voice ID: [id number] Report ID: [id number]
[2019-06-11] MEDS ORDERED: ALBUMIN HUMAN 25% 50 ML IV ONE (12:20)
[2019-06-11] MEDS: CEFEPIME/SWI 1gm 10 ML IV SCH (17:09)
--- NOTE | 2019-06-11 22:26 | PN ---
Date of Progress Note: 06/11/2019 Chief Complaint: End-stage renal disease on dialysis. History Of Present Illness: Patient has multiple medical problems including history of end-stage imelda al disease, hypertension, anemia, CKD. Patient denies fever or chills. Physical Examination: Lungs: Diminished breath sounds at bases. Heart: S1, S2. Abdomen: Soft, benign. Extremities: No bleeding. No oozing. Impression And Plan: 1.End-stage renal disease. Patient will continue dialysis. Avoid nephrotoxic medications. Monitor fluid balance. 2.Acute right foot cellulitis, recent amputation of the second toe. WBC was elevated. Procalcitoni n was elevated. Patient will continue antibiotics and is awaiting debridement. 3.Diabetes mellitus. Continue insulin. 4.Hypertension on blood pressure medication. Monitor blood pressure. BEAR/JORGE Voice ID: [id number] Report ID: [id number]
[2019-06-12] MEDS: INSULIN -REGULAR HUMAN 50 UNIT/0.5 ML ML SQ SCH ×4 (07:30→21:14)
[2019-06-12] MEDS: carvediloL 12.5 MG TAB PO SCH ×2 (08:51→21:16)
[2019-06-12] MEDS: SEVELAMER CARBONATE 800 MG TABLET PO SCH ×3 (08:51→16:48)
[2019-06-12] MEDS: GLIPIZIDE S.A. 5 MG TAB PO SCH ×2 (08:51→16:48)
[2019-06-12] MEDS: FUROSEMIDE 40 MG TABLET PO SCH (08:52)
[2019-06-12] MEDS: AMLODIPINE 10 MG TAB PO SCH (08:52)
[2019-06-12] MEDS: SPIRONOLACTONE 25 MG TABLET PO SCH (08:52)
[2019-06-12] MEDS: SODIUM HYPOCHLORITE 0.5% 473 ML TOP SCH (08:53)
[2019-06-12] MEDS: MUPIROCIN 2% OINT 22GM TUBE TOP SCH ×2 (08:53→21:00)
[2019-06-12] MEDS: GABAPENTIN 300 MG CAP PO SCH (08:53)
[2019-06-12] MEDS: HYDRALAZINE HCL 25 MG TABLET PO SCH ×2 (08:53→21:16)
[2019-06-12] MEDS: COLLAGENASE 30 GM OINTMENT TOP SCH (09:00)
[2019-06-12] MEDS: HEPARIN 5000 UNIT/ML 1 ML VIAL SQ SCH ×2 (09:00→21:17)
--- NOTE | 2019-06-12 11:27 | PN ---
Date of Progress Note: 06/12/2019 Subjective: Patient was admitted with cellulitis of the foot status post debridement. Physical Examination: Vital Signs: Blood pressure 135/74, pulse of 85. Patient tolerated dialysis yesterday very well. W e managed to remove 1500. The patient had urine output of 700. Chest: Clear to auscultation. Heart: S1, S2 regular. Abdomen: Soft, nontender. Extremities: Dressing on the right foot. Laboratory Data: WBC 19.7, H and H 10.4/32.2, platelets 297. Sodium 135, potassium 4.2, bicarb 24, BUN 75, creatinine 10, calcium 7.7. Current Medications: The patient on include amlodipine 10 mg, carvedilol 12.5 b.i.d., hydralazine, s pironolactone, gabapentin, Renvela 2400 with each meal, Zofran, glipizide, insulin. Assessment And Plan: 1.End-stage renal disease, slightly on the over volume side. I am going to go ahead and arrange for another session of dialysis tomorrow and we will follow up. 2.Hypertension, continue utilizing blood pressure to establish better volume control. 3.Secondary hyperparathyroidism. I going to continue binder. 4.Anemia of chronic kidney disease. H and H on the goal. Continue KADI. 5.Foot infection, diabetic foot. Followup with Surgery and Primary. Continue current antibiotics. THALIA Voice ID: [id number] Report ID: [id number]
--- NOTE | 2019-06-12 12:09 | P.PN ---
Subjective Date of Service: 06/12/19 Chief Complaint: Right foot cellulitis Subjective: No new changes, Improving (S/P AMPUTATION OF RIGHT 3RD DIGIT YESTERDAY -feel fine now -states pain controlled) Review of Systems 10-point ROS is otherwise unremarkable Physical Examination - Vital Signs Temperature: 98.7 F Blood Pressure: 135/74 Pulse: 85 Respirations: 18 Pulse Ox (%): 95 - Physical Exam General: In no apparent distress, Oriented x3 HEENT: Atraumatic, Normocephalic, PERRLA Respiratory: Clear to auscultation bilaterally, Normal air movement Cardiovascular: No edema, Normal pulses, Regular rate/rhythm, Normal S1 S2 Musculoskeletal: No clubbing, No swelling, Other (dsg over right foot , prior left TMA) External genitalia: No edema, No lesions - Studies Medications List Reviewed: Yes Assessment And Plan - Current Problems (Diagnosis) (1) Cellulitis of right foot Current Visit: Yes Status: Acute (2) Diabetes mellitus type 2 Onset Date: 11/26/16 Current Visit: No Status: Chronic (3) ESRD (end stage renal disease) Current Visit: No Status: Chronic (4) Essential hypertension Onset Date: 11/26/16 Current Visit: No Status: Chronic (5) Obesity (BMI 30.0-34.9) Current Visit: No Status: Chronic (6) Type II diabetes mellitus with ulcer Onset Date: 02/08/13 Current Visit: No Status: Chronic Discharge Plan: Home Physician Review: Patient Assessed, Agree with Above Assessment and Plan Physician Review Additional Text: Assessment and plan #status post right foot 3rd digit amputation-improving cellulitis and gangrene -continue broad-spectrum antibiotics. -follow repeat CBC in a.m. for leukocytosis-previously improving -may need IV antibiotics post dialysis -follow with Dr. mckay -follow pending cultures # acute right foot cellulitis-as above #End stage disease on hemodialysis-continue dialysis aMWF , renal team with Dr. Kelly on service # diabetes mellitus type 2 with hyperglycemia and end-stage renal disease. Continue sliding scale insulin and monitor blood glucose levels. # essential hypertension. Monitor blood pressure and continue home medications. # diabetic neuropathy. Will continue home medications. Disposition possible hospital stay for another 24 hrs
[2019-06-13 04:28] LABS: Absolute Lymphocytes (CBC) 1.3 K/uL (0.7-4.9); Basophils % 0.8 % (0-1.3); Hematocrit 30.9 % (39.6-49.0); Lymphocytes % 7.4 % (15.3-44.8); MPV 8.4 fL (7.6-11.3); RBC Red Blood Cell Count 3.34 M/uL (4.33-5.43)
[2019-06-13 04:54] LABS: Albumin 1.7 g/dL (3.4-5.0); Bilirubin Total 0.2 mg/dL (0.2-1.0); Phosphorus 5.4 mg/dL (2.5-4.9); Potassium 4.1 mmol/L (3.5-5.1); Protein, Total 6.9 g/dL (6.4-8.2)
[2019-06-13] MEDS: INSULIN -REGULAR HUMAN 50 UNIT/0.5 ML ML SQ SCH ×4 (07:30→21:00)
[2019-06-13] MEDS: SODIUM HYPOCHLORITE 0.5% 473 ML TOP SCH (09:00)
[2019-06-13] MEDS: MUPIROCIN 2% OINT 22GM TUBE TOP SCH ×2 (09:00→21:00)
[2019-06-13] MEDS: AMLODIPINE 10 MG TAB PO SCH (10:06)
[2019-06-13] MEDS: GABAPENTIN 300 MG CAP PO SCH (10:06)
[2019-06-13] MEDS: SEVELAMER CARBONATE 800 MG TABLET PO SCH ×3 (10:06→16:33)
[2019-06-13] MEDS: HEPARIN 5000 UNIT/ML 1 ML VIAL SQ SCH ×2 (10:06→21:27)
[2019-06-13] MEDS: SPIRONOLACTONE 25 MG TABLET PO SCH (10:07)
[2019-06-13] MEDS: FUROSEMIDE 40 MG TABLET PO SCH (10:07)
[2019-06-13] MEDS: HYDRALAZINE HCL 25 MG TABLET PO SCH ×2 (10:07→21:27)
[2019-06-13] MEDS: carvediloL 12.5 MG TAB PO SCH ×2 (10:07→21:27)
[2019-06-13] MEDS: COLLAGENASE 30 GM OINTMENT TOP SCH (10:08)
[2019-06-13] MEDS: GLIPIZIDE S.A. 5 MG TAB PO SCH (10:08)
--- NOTE | 2019-06-13 12:00 | RAD REPORT ---
EXAM DESCRIPTION: US - Lower Extremity Artery [facility] - 06/13/2019 11:47 am CLINICAL HISTORY: Leg pain COMPARISON: None FINDINGS: The waveform of the right common femoral, and right superficial femoral arteries are bipha sic. The waveforms of the right popliteal, right posterior tibial and right dorsalis pedis arteries are mo nophasic. Mild plaque is present within proximal arteries. Moderate plaque is present within the distal arteries. No occlusion IMPRESSION: Moderate disease involving the right popliteal and distal arteries of the right lower ex tremity
--- NOTE | 2019-06-13 12:11 | P.PN ---
Subjective Date of Service: 06/13/19 Chief Complaint: Right foot cellulitis Status post amputation of right 3rd digit, and sharp knife debridement. Patient has no complain today. WBC is trending down. Physical Examination - Vital Signs Temperature: 98.4 F Blood Pressure: 137/65 Pulse: 73 Respirations: 18 Pulse Ox (%): 94 - Physical Exam General: Alert, In no apparent distress, Oriented x3 HEENT: Mucous membr. moist/pink Neck: Supple Respiratory: Clear to auscultation bilaterally, Normal air movement Cardiovascular: Regular rate/rhythm, Normal S1 S2 Gastrointestinal: Normal bowel sounds, Soft and benign, Non-distended, No tenderness Musculoskeletal: Other (Right 3rd toe amputated. Right foot in dressing.) Integumentary: Erythema (Dorsum of left foot) Neurological: Normal strength at 5/5 x4 extr - Studies Medications List Reviewed: Yes Assessment And Plan - Current Problems (Diagnosis) (1) Cellulitis of right foot Current Visit: Yes Status: Acute (2) Wound infection after surgery Current Visit: Yes Status: Acute (3) ESRD (end stage renal disease) Current Visit: No Status: Chronic (4) Essential hypertension Onset Date: 11/26/16 Current Visit: No Status: Chronic Physician Review: Patient Assessed, Agree with Above Assessment and Plan Physician Review Additional Text: Assessment and plan #status post right foot 3rd digit amputation for cellulitis and gangrene. -continue broad-spectrum antibiotics. -consult infectious disease requested. -case discussed with Dr. Mandujano. He recommend LTAC placement for IV antibiotics and aggressive wound care. -IV antibiotics can be given with dialysis. -follows deep tissue wound cultures. -there is also concern for vascular insufficiency in the right foot. -arterial Doppler of the foot requested # acute right foot cellulitis- -on antibiotics as above #End stage disease on hemodialysis -continue dialysis on MWF. # diabetes mellitus type 2 with hyperglycemia and end-stage renal disease. -noted morning low blood sugars. -Continue sliding scale insulin and monitor blood glucose levels. -check hemoglobin A1c. -may need to reduce evening dose of glipizide. # essential hypertension. -Monitor blood pressure and continue home medications.
--- NOTE | 2019-06-13 14:12 | PN ---
Date of Progress Note: 06/13/2019 Subjective: Patient was admitted with foot infection status post debridement. Patient denies any fe edu or chills. Physical Examination: Vital Signs: When I saw the patient, blood pressure 137/65, pulse of 73. Chest: Clear to auscultation. HEART: S1, S2. Regular. Abdomen: Soft, nontender. Extremities: Mid toe amputation on the right. Wound clean with gangrenous on the tip of other toes. Neurologic: Alert. Nonfocal. Patient had TMA on the left. Laboratory Data: WBC 17.6, H and H 10/30.9, platelets 286. Sodium 133, potassium 4.1, bicarb 26, BU N 69, creatinine 10.6, calcium 7.4, phos 5.4. Current Medications: The patient is on include; 1.Cefepime. 2.Vancomycin. 3.Epogen. 4.Amlodipine 10. 5.Carvedilol 12.5. 6.Hydralazine 25 b.i.d. 7.Spironolactone. 8.Lasix. 9.Renvela 3 tablets with each meal. Assessment And Plan: 1.End-stage renal disease. We will continue the patient on dialysis. The patient due for dialysis today. 2.Secondary hyperparathyroidism, stable. Continue binder. 3.Anemia of chronic kidney disease. Continue KADI. 4.Diabetes as by primary. 5.Foot infection, poor healing. Continue current antibiotic follow up with ID and Surgery. Plan fo r LTAC placement. Plan for ultrasound with arterial study and we will follow up. 6.Hypertension, controlled, optimal. 7.Over volume. Currently, the patient started to be in normal volume. Continue dialysis TTS. 8.Electrolyte imbalance is going to be corrected with dialysis. CLAUDIA/JORGE Voice ID: [id number] Report ID: [id number]
[2019-06-13] MEDS ORDERED: GLIPIZIDE S.A. 5 MG TAB PO SCH (17:00)
[2019-06-13] MEDS ORDERED: ALBUMIN HUMAN 25% 50 ML IV PRN (17:57)
--- NOTE | 2019-06-13 18:39 | CON ---
History Of Present Illness: Patient lying is a 58-year-old male. I was consulted for right foot inf ection. Patient has significant history of diabetes mellitus and diabetic neuropathy with infection to the right foot gangrenous changes, status post surgical debridement and amputation of 2nd and 3rd toe. Patient still has gangrenous changes to the 4th toe and 5th toe is being involved also. Patien t also has erythematous changes to the foot. Denies any pain because patient does not have any sensa tion. Patient denies any other problems at this time. Past Medical History: Diabetes mellitus; hypertension; end-stage renal disease, on hemodialysis; tra nsmetatarsal amputation of the left foot in 2009; back I and D; cardiac bypass surgery last year. Social History: Tobacco, former smoker. Alcohol, former alcohol user. Current Medications: Vancomycin and cefepime. Allergies: NO KNOWN DRUG ALLERGIES. Review of Systems: A 10-point review was performed. Physical Examination: General: This is a 58-year-old male, lying in bed, not in any acute cardiopulmonary distress. Vital Signs: Temperature 98.4, pulse 73, respirations 18, blood pressure 137/65. HEENT: Unremarkable. Musculoskeletal: Examination of right leg shows patient has poor circulation with decreased pulses a t the pedal area. Also, has gangrenous changes at the amputation site of 2nd and 3rd toes and 4th to e is also gangrenous from the lateral and medial sides involving 5th toe also. Patient does have 100 % necrotic tissue in the base of 2nd and 3rd toe amputation site plus erythematous changes noted all the way up to ankle. No edema to the lower extremities. Abdomen: Soft. Laboratory Data: WBC 17.6, hemoglobin 10, platelets are 286. Chemistry shows sodium 133, potassium 4.1, chloride 96, bicarb 26, BUN 69, creatinine 10, glucose is 97, albumin is 1.7. Micro data shows blood cultures no growth for 24 hours. Wound cultures from the right foot done on 06/10 shows no brandy wth. Assessment And Plan: Right foot diabetic ulcer, status post gangrenous changes, amputation of 2nd an d 3rd toe. Patient still has gangrenous changes to 4th and 5th toes also involving cellulitis and pe ripheral neuropathy, end-stage renal disease, and high-protein calorie malnourishment. Continue anti biotic and wound care. Patient might need higher amputation, possible TMA versus amputation of 4th a nd 5th toes. We will follow patient closely. Continue to keep leg elevated. I agree with cleaning with Dakin solution and applying Santyl to the wound site. We will follow patient closely. Apply Be tadine to the gangrenous area. We will continue supportive care and wound care. NF/MODL Voice ID: [id number] Report ID: [id number]
--- NOTE | 2019-06-13 19:14 | P.DS ---
Admission Date: 06/09/19 Discharge Date: 06/13/19 Disposition: TRANSFER TO [facility] Discharge Condition: FAIR Reason for Admission: Right foot cellulitis Consultations: General surgery Infectious disease Nephrology Procedures: 1. Amputation of the third toe of the right foot. 2. Debridement of necrotic tissue. - Problems (1) Cellulitis of right foot Current Visit: Yes Status: Acute (2) Wound infection after surgery Current Visit: Yes Status: Acute (3) ESRD (end stage renal disease) Current Visit: No Status: Chronic (4) Essential hypertension Onset Date: 11/26/16 Current Visit: No Status: Chronic (5) Gangrene of foot Current Visit: Yes Status: Acute (6) Peripheral vascular disease of extremity Current Visit: Yes Status: Acute Brief History of Present Illness: 58-year-old gentleman with a history diabetes mellitus type 2 oral hypoglycemics, history of end-stage renal disease on hemodialysis on Tuesday and Tuesday, nonhealing ulcer of the right foot, recently had right 2nd digit amputation done presented to the ED with worsening of symptoms. Patient noted to have gangrene involving the right second digit amputation stump and the 3rd digit. General surgery was consulted, patient was started on IV antibiotics and admitted for further management. Hospital Course: Patient admitted to the medical floor and treated with IV vancomycin and cefepime. Cultures taking yielded no growth. Patient was evaluated by Dr. Mandujano, right 3rd digit amputation, and debridement of necrotic tissue from the 2nd digit amputation stump was done. Noted patient had severe leukocytosis which gradually trended down with IV antibiotic. Patient noted to have redeveloped gangrene of the surgical site as well as purplish discoloration of the right foot which was concerning for ongoing ischemic process. Arterial Doppler of the extremity reported moderate disease involving the right popliteal and distal after release of the right lower extremity. Dr. Mandujano recommended transfer to a tertiary center for vascular Surgery evaluation. I spoke to Dr. Clark vascular surgeon at [facility], patient has been accepted for transfer for evaluation. I spoke to Dr. Gar, hospitalist who has accepted patient for transfer. Patient vitals are stable. Hemodialysis perf ormed today. He is deemed clinically stable for transfer. Vital Signs/Physical Exam: Temp Pulse Resp BP Pulse Ox 98.7 F 73 18 132/65 93 06/13/19 16:00 06/13/19 16:00 06/13/19 16:00 06/13/19 16:00 06/13/19 16:00 General: Alert, In no apparent distress, Oriented x3 HEENT: Mucous membr. moist/pink Neck: Supple Respiratory: Clear to auscultation bilaterally, Normal air movement Cardiovascular: No edema, Regular rate/rhythm, Normal S1 S2 Gastrointestinal: Normal bowel sounds, Soft and benign Musculoskeletal: Other (Right foot digit amputation stumps with gangrenous tiss ue at surgical site and purplish discoloration of the dorsum of the foot.) Neurological: Other (Nonfocal) Laboratory Data at Discharge: WBC 17.6 K/uL (4.3-10.9) H 06/13/19 04:04 Hgb 10.0 g/dL (13.6-17.9) L 06/13/19 04:04 Hct 30.9 % (39.6-49.0) L 06/13/19 04:04 Plt Count 286 K/uL (152-406) 06/13/19 04:04 PT 15.9 SECONDS (9.5-12.5) H 06/09/19 13:00 INR 1.36 06/09/19 13:00 Sodium 133 mmol/L (136-145) L 06/13/19 04:04 Potassium 4.1 mmol/L (3.5-5.1) 06/13/19 04:04 BUN 69 mg/dL (7-18) H 06/13/19 04:04 Creatinine 10.60 mg/dL (0.55-1.3) H* 06/13/19 04:04 Glucose 97 mg/dL (74-106) 06/13/19 04:04 Phosphorus 5.4 mg/dL (2.5-4.9) H 06/13/19 04:04 Magnesium 2.1 mg/dL (1.8-2.4) D 06/09/19 13:00 Total Bilirubin 0.2 mg/dL (0.2-1.0) 06/13/19 04:04 AST 13 U/L (15-37) L 06/13/19 04:04 ALT 11 U/L (12-78) L 06/13/19 04:04 Alkaline Phosphatase 64 U/L (45-117) 06/13/19 04:04 Home Medications: Amlodipine Besylate 10 mg PO DAILY 06/09/19 Furosemide 40 mg PO DAILY 06/09/19 Gabapentin 300 mg PO DAILY 06/09/19 Glipizide [Glipizide ER] 10 mg PO BID 06/09/19 Hydralazine [Apresoline] 25 mg PO BID 06/09/19 Spironolactone 25 mg PO DAILY 06/09/19 carvediloL [Carvedilol] 12.5 mg PO BID 06/09/19 Time spent managing pt's care (in minutes): 45
[2019-06-13] MEDS: CEFEPIME/SWI 1gm 10 ML IV SCH (22:33)
[2019-06-14] MEDS ORDERED: ALBUMIN HUMAN 25% 50 ML IV PRN
[2019-06-14 02:40] VITALS: O2SAT 95
[2019-06-14 04:35] LABS: Basophils % 0.6 % (0-1.3); Hematocrit 32.3 % (39.6-49.0); MPV 8.3 fL (7.6-11.3); RBC Red Blood Cell Count 3.44 M/uL (4.33-5.43)
[2019-06-14 04:54] LABS: Albumin 1.7 g/dL (3.4-5.0); Phosphorus 4.6 mg/dL (2.5-4.9); Potassium 4.1 mmol/L (3.5-5.1)
[2019-06-14 05:44] VITALS: BP 126/64; TEMP 98.8
[2019-06-14] MEDS ORDERED: GLIPIZIDE S.A. 5 MG TAB PO SCH (08:00)
== END 2019-06-14 07:00 | disposition short-term general hospital (02) | DRG 856 ==
LOC: ER 12:12 → 2ND 15:08
PROVIDERS: ADMIT Family Medicine; ATTEND Internal Medicine
PROC: 0JBQ0ZZ Excision of Right Foot Subcutaneous Tissue and Fascia, Open Approach (ICD-10-PCS; principal; 2019-06-09)
PROC: 0Y6T0Z1 Detachment at Right 3rd Toe, High, Open Approach (ICD-10-PCS; 2019-06-11 09:45)
PROC: 5A1D70Z Performance of Urinary Filtration, Intermittent, Less than 6 Hours Per Day (ICD-10-PCS; 2019-06-13)
DX: T81.49XA Infection following a procedure, other surgical site, initial encounter (principal); N18.6 End stage renal disease; L03.115 Cellulitis of right lower limb; I12.0 Hypertensive chronic kidney disease with stage 5 chronic kidney disease or end stage renal disease; E11.52 Type 2 diabetes mellitus with diabetic peripheral angiopathy with gangrene; I96 Gangrene, not elsewhere classified; N25.81 Secondary hyperparathyroidism of renal origin; E46 Unspecified protein-calorie malnutrition; Z99.2 Dependence on renal dialysis; Z79.84 Long term (current) use of oral hypoglycemic drugs; Z79.899 Other long term (current) drug therapy; E11.40 Type 2 diabetes mellitus with diabetic neuropathy, unspecified; Z89.432 Acquired absence of left foot; Z95.1 Presence of aortocoronary bypass graft; E11.65 Type 2 diabetes mellitus with hyperglycemia; E11.22 Type 2 diabetes mellitus with diabetic chronic kidney disease; Z91.19 Patient's noncompliance with other medical treatment and regimen; H54.7 Unspecified visual loss; E11.319 Type 2 diabetes mellitus with unspecified diabetic retinopathy without macular edema; D63.8 Anemia in other chronic diseases classified elsewhere; F17.200 Nicotine dependence, unspecified, uncomplicated; E66.9 Obesity, unspecified; Z68.29 Body mass index [BMI] 29.0-29.9, adult; E11.621 Type 2 diabetes mellitus with foot ulcer; L97.519 Non-pressure chronic ulcer of other part of right foot with unspecified severity
CPT/HCPCS: 36415; 71045; 80048; 80053; 80069; 80076; 80202; 81003; 81015; 82947; 83036; 83735; 83880; 84132; 84145; 85025; 85610; 86140; 87040; 87070; 87075; 87205; 88305; 90935; 93005; 93926; 94760; 96365; 96368; 99285; J0360; J0692; J1644; J2250; J2270; J2704; J3010; J3370; J3590; J7030; J7040; P9047; Q5105

== ENCOUNTER 2019-09-03 16:13 | Emergency (ER) | payer OTHER ==
--- OUTSIDE RECORDS SUMMARY | 2019-09-03 16:56 | XMS REPORT | Clinical Summary ---
:1960 Author Organization [facility] Address [address] [place] [address] Care Team Providers Name Role Phone Tito Duval MD Primary Care Provider Allergies No Known Allergies Medications Medication Sig Dispensed Refills Start End Status Date Date glipiZIDE (GLUCOTROL) Take 10 mg by 0 Active 10 MG tablet mouth 2 (two) times a day before meals. spironolactone Take 25 mg by 0 A ctive (ALDACTONE) 25 MG mouth daily. tablet gabapentin (NEURONTIN) Take 300 mg by 0 Active 300 mg capsule mouth daily. amLODIPine (NORVASC) Take 10 mg by 0 24 /2 Discontinued 10 mg tablet mouth daily. 019 (Sto p Taking at Discharge) carvedilol (COREG) Take 12.5 mg 0 09/27/2 Discontinued 12.5 MG tablet by mouth 2 019 (Sto p Taking at (two) times a Discha rge) day with meals. furosemide (LASIX) 40 Take 40 mg by 0 07/2 4/2 Discontinued mg tablet mouth daily. 019 (Stop T aking at Discharge) hydrALAZINE Take 25 mg by 0 24/2 Disc ontinued (APRESOLINE) 25 MG mouth daily. 019 (Stop Taking at tablet Discharge) aspirin (ECOTRIN) 81 Take 1 tablet 30 tablet 0 08/31/ 07/ /2 Discontinued MG enteric coated (81 mg total) 19 019 (Stop Taking at tablet by mouth daily Disch arge) for 30 days. atorvastatin (LIPITOR) Take 1 tablet 30 tablet 11 09/01/1930/04 Discontinued 80 MG tablet (80 mg total) 019 (St op Taking at by mouth daily Disch arge) for 30 days. aspirin 325 MG tablet Take 1 tablet 15 tablet 1 09/29/1910/06 4/ (325 mg total) 19 019 by mouth daily for 30 days. amLODIPine (NORVASC) 5 Take 1 tablet 30 tablet 1 09/29/1930/04 mg tablet (5 mg total) 19 019 by mouth daily for 30 days. atorvastatin (LIPITOR) Take 1 tablet 30 tablet 1 09/28/1929/04 40 MG tablet (40 mg total) 19 019 by mouth nightly for 30 days. carvedilol (COREG) Take 1 tablet 60 tablet 1 09/28/19 12.5 MG tablet (12.5 mg 19 019 total) by mouth 2 (two) times a day with meals for 30 days. methylPREDNISolone follow package 21 tablet 0 09/28/19 (MEDROL DOSEPAK) 4 mg directions 19 019 tablet methylPREDNISolone follow package 21 tablet 0 09/28/19 (MEDROL DOSEPAK) 4 mg directions 19 019 tablet methylPREDNISolone follow package 21 tablet 0 09/29/19 (MEDROL DOSEPAK) 4 mg directions 19 019 tablet methylPREDNISolone follow package 21 tablet 0 09/30/19 (MEDROL DOSEPAK) 4 mg directions 19 019 tablet methylPREDNISolone follow package 21 tablet 0 09/29/19 (MEDROL DOSEPAK) 4 mg directions 19 019 tablet methylPREDNISolone follow package 21 tablet 0 09/28/19 (MEDROL DOSEPAK) 4 mg directions 19 019 tablet methylPREDNISolone follow package 21 tablet 0 09/29/19 (MEDROL DOSEPAK) 4 mg directions 19 019 tablet doxycycline Take 1 capsule 14 capsule 0 10/21/19 Di scontinued (VIBRAMYCIN) 100 MG (100 mg total) 19 019 (Reorder) capsuleIndications: by mouth 2 S/P CABG x 3 (two) times a day for 7 days. doxycycline TAKE 1 CAPSULE 14 capsule 0 11/15/19 Ex pired (VIBRAMYCIN) 100 MG BY MOUTH TWICE 019 capsuleIndications: A DAY FOR 7 S/P CABG x 3 DAYS ciprofloxacin (CIPRO) Take 1 tablet 7 tablet 0 10/30/1903/08 500 MG tablet (500 mg total) 019 by mouth daily for 7 days. Active Problems Problem Noted Date CAD (coronary artery disease) 09/22/2018 Hypertension 09/22/2018 ESRD (end stage renal disease) on dialysis 09/22/2018 S/P CABG x 3 09/22/2018 Acute blood loss anemia 09/22/2018 Blind left eye 09/22/2018 Type 2 diabetes mellitus 09/22/2018 CAD in [place] artery 08/31/2018 Overview: Added automatically from request for jasmeet castaneda [id number] Encounters Date Type Specialty Care Team Description 05/24/2019 Documentation Transplant Shasta Tobias RN 05/23/2019 Documentation Transplant Shahnaz Cornejo 05/22/2019 Documentation Transplant Alena Patel Committee R chayw (MRB Packet 05/24/2019 scan laura in media. ) 05/22/2019 Documentation Transplant Shasta Tobias RN 05/21/2019 Documentation Transplant Alena Patel Kidney Eval (Cardio clearance 05/10/2019 scan laura in media. ) 05/10/2019 Lab Lab Sonal Trinidad End stage ari Donovan MD disease ([facility]) (Primary Dx) 05/10/2019 Lab Lab Sonal Trinidad ESRD (end anahi Donovan MD renal disease) ([facility]) 05/10/2019 Office Visit Transplant Sonal Trinidad Pre-transplant MD Venus evaluation for Adrogue, kidney transpla nt Jatinder Odonnell MD (Primary Dx) 04/30/2019 Telephone Transplant Alena Patel Kidney f/u a ppts (16:17pm Sp w/p t deuce Raines re: kidney follow u p scheduled on 05/10/19. Olu confirmed patie nts appts.) 04/04/2019 Orders Only Transplant Jatinder ESRD (end stage SUNITA [place] renal disease) ([facility]) (Primary Dx) 01/24/2019 Telephone Transplant Antelmo Narayanan MA Kidney Evalu ation Status 11/07/2018 Refill Cardiovascular Alley Stinson PA 11/05/2018 Refill Cardiovascular Alley Stinson PA 11/01/2018 Telephone Cardiovascular Walton, Ginna 10/31/2018 Orders Only Cardiovascular Walton, Ginna Status pos t coronary artery bypass graft (Primary Dx); S/P CABG x 3; Encounter for p ostoperative wound care 10/29/2018 Orders Only Cardiovascular Alley Stinson, PA 10/27/2018 Telephone Cardiovascular Walton, Ginna 10/26/2018 Refill Cardiovascular Juanis, S/P CABG x 3 Abraham Whipple MD 10/25/2018 Telephone Cardiovascular Melody Shah, SUNITA 10/24/2018 Lab Lab Juanis, Canceled Abraham (Scheduling Err or) MD Sarabjit 10/24/2018 Lab Lab Juanis, Status post cor onary artery bypass graft (Primary Dx); Abraham S/P CABG x 3 MD Sarabjit 10/24/2018 Office Visit Cardiovascular Juanis, S/P CABG x 3 Abraham (Primary Dx) MD Sarabjit 10/24/2018 Hospital Encounter Radiology Juanis, Post-oper ative [facility] state MD Sarabjit 10/20/2018 Telephone Cardiovascular Pablo, S/P CABG x 3 Melody (Primary Dx) Juan, SUNITA 10/16/2018 Orders Only Cardiovascular Megan Grijalva MA Post-operat tres state (Primary Dx) 09/22/2018 Surgery Cardiothoracic Juanis, CABG X3 WITH Surgery Abraham ENDOSCOPIC VEIN MD Sarabjit HARVESTING 09/22/2018 Anesthesia Event Cardiothoracic [place], Surgery MD Maria M Patterson Maria, BRYAN 09/22/2018 Hospital Encounter General Internal Juanis, Coron [place] artery - Medicine Abraham disease involvi ng 09/27/2018 MD Sarabjit [place] coronar y artery of nativ e heart with you na pectoris (HCC) (Primary Dx) 09/22/2018 Telephone [facility] Aida Anushka 09/19/2018 Documentation Transplant Jorge Alena Kidney Eval (Cardio consult 9 scanned in medi a. Pt getting CABG on 09/22/18) 09/08/2018 Hospital Encounter Pulmonology Juanis Coronary artery Abraham disease involvi radha Whipple MD [place] heart w ith unstable angina pectoris, unspecified ves sae or lesion type (HCC) 09/08/2018 Telephone Cardiovascular Melody Shah, SUNITA after 09/02/2018 Social History Tobacco Use Types Packs/Day Years Used Date Former Smoker Cigarettes Quit: 1997 Smokeless Tobacco: Never Used Alcohol Use Drinks/Week oz/Week Comments Not Currently Sex Assigned at Date Recorded Not on file Job Start Date Occupation Industry Not on file Not on file Not on file Travel History Travel Start Travel End No recent travel history available. Last Filed Vital Signs Vital Sign Reading Time Taken Comments Blood Pressure 166/80 05/10/2019 8:04 AM [employer] Pulse 93 05/10/2019 8:04 AM [employer] Temperature 35.7 C (96.2 F) 05/10/2019 8:02 AM [employer] Respiratory Rate 18 05/10/2019 8:02 AM [employer] Oxygen Saturation 99% 05/10/2019 8:02 AM [employer] Inhaled Oxygen Concentration - - Weight 103 kg (227 lb 11.2 oz) 05/10/2019 8:02 AM [employer] Height 180.3 cm (5' 11") 05/10/2019 8:02 AM [employer] Body Mass Index 31.76 05/10/2019 8:02 AM [employer] [employer] Plan of Treatment Health Maintenance Due Date Last Done Comments DIABETIC RETINAL EYE EXAM 1960 DIABETIC FOOT EXAM 11/11/1969 URINE MICROALBUMIN 11/11/1969 COLONOSCOPY SCREENING 11/11/2009 SHINGLES VACCINES (#1) 11/11/2009 INFLUENZA VACCINE 10/06/2019 Implants Implanted Type Area Demo Specialist Device Shelf Model / Identifier Expiration Serial / Date Lot Lead Pace Mycrdl Bipolar Coax Tmpry Streamline - [id number] Card iac Pacing N/A: [employer] [place] - 05/16/2020 [id number] / Implanted: Qty: 1 on 09/22/2018 by Abraham Mustafa MD at [facility] Leads or N/A CARDIAC RYHTYM / Electrodes or MGMT Accessories Clip Ligtng Weck Hemoclip Plus W/ Tape Ti Med - [id number] Medic al Clips N/A: TELEFLEX 05/30/2023 [id number] / Implanted: Qty: 2 on 09/22/2018 by Abraham Mustafa MD at [facility] for Internal N/A MEDICAL / Use Clip Ligtng Weck Hemoclip Plus W/ Tape Ti Sm Strngpnt - [id number] Medical Clips N/A: WECK CLOSURE 05/16/2023 [id number] / Implanted: Qty: 2 on 09/22/2018 by Abraham Mustafa MD at [facility] for Internal N/A SYSTEMS / Use Clip Ligtng Weck Hemoclip Plus W/ Tape Ti Sm Strngpnt - [id number] Medical Clips N/A: WECK CLOSURE 06/17/2022 [id number] / Implanted: Qty: 1 on 09/22/2018 by Abraham Mustafa MD at [facility] for Internal N/A SYSTEMS / Use Clip Ligtng Weck Hemoclip Plus W/ Tape Ti Sm Strngpnt - [id number] Medical Clips N/A: WECK CLOSURE 06/17/2022 [id number] / Implanted: Qty: 1 on 09/22/2018 by Abraham Mustafa MD at [facility] for Internal N/A SYSTEMS / Use Material Bone Hmsts Wtrsolbl 2.5g Ostene - [id number] Orthopedic N/A: 01/04/2023 [id number] / Implanted: Qty: 1 on 09/22/2018 by Abraham Mustafa MD at [facility] Trauma N/A / Implants [id number] W [place] Perph Vasclr Ptfe 1.2x10cm 1.65mm - [id number] Vascular Gra ft N/A: BARD PERIPHERAL 06/02/2023 [id number] / Implanted: Qty: 1 on 09/22/2018 by Abraham Mustafa MD at [facility] N/A VASCULAR / [id number] Procedures Procedure Name Priority Date/Time Associated Comments Diagnosis ESTIMATED GFR Routine 05/10/2019 8:10 Results fo r this AM [employer] [employer] procedure are i n the results section. PARTIAL THROMBOPLASTIN Routine 05/10/2019 8:10 ESRD (end stag e Results for this TIME (PTT) AM [employer] [employer] renal disease) procedure are in (HCC) the results section. PROTHROMBIN TIME WITH Routine 05/10/2019 8:10 ESRD (end stage Results for this INR AM [employer] [employer] renal disease) procedure are in ([facility]) the results section. HC COMPLETE BLD COUNT Routine 05/10/2019 8:10 ESRD (end stage Results for this W/AUTO DIFF AM [facility] [employer] renal disease) procedure are in ([facility]) the results section. URINALYSIS SCREEN AND Routine 05/10/2019 8:10 ESRD (end stage Results for this MICROSCOPY, WITH REFLEX AM [facility] [employer] renal disease) pr ocedure are in TO CULTURE ([facility]) the results section. COMPREHENSIVE METABOLIC Routine 05/10/2019 8:10 ESRD (end sta ge Results for this PANEL AM [facility] [employer] renal disease) procedure are in ([facility]) the results section. URINE CULTURE Routine 05/10/2019 8:10 Results fo r this AM [employer] [employer] procedure are i n the results section. OCCULT BLOOD, STOOL Routine 05/09/2019 3:35 End stage renal R esults for this PM [employer] [employer] disease (HCC) procedure are in the results section. OCCULT BLOOD, STOOL Routine 05/08/2019 10:00 ESRD (end stage R esults for this AM [employer] [employer] renal disease) procedure are in ([facility]) the results section. AEROBIC CULTURE Routine 10/24/2018 5:00 Results for this PM CDT procedure are i n the results section. GRAM STAIN Routine 10/24/2018 5:00 Results for this PM CDT procedure are i n the results section. GRAM STAIN Routine 10/24/2018 5:00 Results for this PM CDT procedure are i n the results section. ANAEROBIC CULTURE Routine 10/24/2018 5:00 Status post Result s for this PM CDT coronary artery procedure ar e in bypass graft the results section. AEROBIC CULTURE Routine 10/24/2018 5:00 Status post Results for this PM CDT coronary artery procedure ar e in bypass graft the results section. ANAEROBIC CULTURE Routine 10/24/2018 5:00 Status post Result s for this PM CDT coronary artery procedure ar e in bypass graft the results section. XR CHEST 2 VW Routine 10/24/2018 12:38 Post-operative Results for this PM CDT state procedure are i n the results section. POC GLUCOSE Routine 09/27/2018 1:10 Results for this PM CDT procedure are i n the results section. POC GLUCOSE Routine 09/27/2018 12:43 Results for this PM CDT procedure are i n the results section. POC GLUCOSE Routine 09/27/2018 8:42 Results for this AM CDT procedure are i n the results section. POC GLUCOSE Routine 09/27/2018 7:19 Results for this AM CDT procedure are i n the results section. HC COMPLETE BLD COUNT Routine 09/27/2018 5:15 Re sults for this W/AUTO DIFF AM CDT procedure are i n the results section. ESTIMATED GFR Routine 09/27/2018 4:00 Results fo r this AM CDT procedure are i n the results section. BASIC METABOLIC PANEL Routine 09/27/2018 4:00 Re sults for this AM CDT procedure are i n the results section. HEMODIALYSIS Routine 09/27/2018 12:06 AM CDT POC GLUCOSE Routine 09/26/2018 8:50 Results for this PM CDT procedure are i n the results section. POC GLUCOSE Routine 09/26/2018 4:56 Results for this PM CDT procedure are i n the results section. POC GLUCOSE Routine 09/26/2018 11:44 Results for this AM CDT procedure are i n the results section. PREPARE RBC Routine 09/26/2018 8:00 Results for this AM CDT procedure are i n the results section. TYPE AND SCREEN Routine 09/26/2018 8:00 Results for this AM CDT procedure are i n the results section. POC GLUCOSE Routine 09/26/2018 7:38 Results for this AM CDT procedure are i n the results section. SMEAR REVIEW Routine 09/26/2018 5:30 Results for this AM CDT procedure are i n the results section. HC COMPLETE BLD COUNT Routine 09/26/2018 5:30 Re sults for this W/AUTO DIFF AM CDT procedure are i n the results section. ESTIMATED GFR Routine 09/26/2018 4:00 Results fo r this AM CDT procedure are i n the results section. BASIC METABOLIC PANEL Routine 09/26/2018 4:00 Re sults for this AM CDT procedure are i n the results section. POC GLUCOSE Routine 09/25/2018 10:55 Results for this PM CDT procedure are i n the results section. POC GLUCOSE Routine 09/25/2018 9:08 Results for this PM CDT procedure are i n the results section. POC GLUCOSE Routine 09/25/2018 6:01 Results for this PM CDT procedure are i n the results section. ECG 12-LEAD Routine 09/25/2018 5:48 Results for this PM CDT procedure are i n the results section. TTE COMPLETE, WO Routine 09/25/2018 5:30 Results for this CONTRAST, W DOPPLER PM CDT procedur e are in ([id number]) the results section. ESTIMATED GFR Routine 09/25/2018 2:38 Results fo r this PM CDT procedure are i n the results section. BASIC METABOLIC PANEL Routine 09/25/2018 2:38 Re sults for this PM CDT procedure are i n the results section. POC GLUCOSE Routine 09/25/2018 2:08 Results for this PM CDT procedure are i n the results section. SMEAR REVIEW Routine 09/25/2018 11:32 Results for this AM CDT procedure are i n the results section. HC COMPLETE BLD COUNT Routine 09/25/2018 11:32 Re sults for this W/AUTO DIFF AM CDT procedure are i n the results section. HEMODIALYSIS Routine 09/25/2018 9:08 AM CDT POC GLUCOSE Routine 09/25/2018 7:38 Results for this AM CDT procedure are i n the results section. POC GLUCOSE Routine 09/24/2018 9:04 Results for this PM CDT procedure are i n the results section. POC GLUCOSE Routine 09/24/2018 5:20 Results for this PM CDT procedure are i n the results section. POC GLUCOSE Routine 09/24/2018 11:53 Results for this AM CDT procedure are i n the results section. ECG 12-LEAD Routine 09/24/2018 9:26 Results for this AM CDT procedure are i n the results section. POC GLUCOSE Routine 09/24/2018 7:34 Results for this AM CDT procedure are i n the results section. ESTIMATED GFR Routine 09/24/2018 5:15 Results fo r this AM CDT procedure are i n the results section. IONIZED CALCIUM Routine 09/24/2018 5:15 Results for this AM CDT procedure are i n the results section. MAGNESIUM LEVEL Routine 09/24/2018 5:15 Results for this AM CDT procedure are i n the results section. CBC HEMOGRAM Routine 09/24/2018 5:15 Results for this AM CDT procedure are i n the results section. BASIC METABOLIC PANEL Routine 09/24/2018 5:15 Re sults for this AM CDT procedure are i n the results section. POC GLUCOSE Routine 09/23/2018 9:08 Results for this PM CDT procedure are i n the results section. POC GLUCOSE Routine 09/23/2018 5:35 Results for this PM CDT procedure are i n the results section. POC GLUCOSE Routine 09/23/2018 11:34 Results for this AM CDT procedure are i n the results section. XR CHEST 1 VW PORTABLE STAT 09/23/2018 10:49 R esults for this AM CDT procedure are i n the results section. LINE/DRAIN REMOVAL Routine 09/23/2018 10:25 Coronary artery Re sults for this AM CDT disease involving procedure are in [place] coronary the results artery of [place] section. heart with angina pectoris (HCC) POC GLUCOSE Routine 09/23/2018 9:14 Results for this AM CDT procedure are i n the results section. HEPATITIS B SURFACE STAT 09/23/2018 8:41 Resu lts for this ANTIGEN AM CDT procedure are i n the results section. HEMODIALYSIS Routine 09/23/2018 7:29 AM CDT XR CHEST 1 VW PORTABLE Routine 09/23/2018 6:44 R esults for this AM CDT procedure are i n the results section. ECG 12-LEAD Routine 09/23/2018 5:29 Results for this AM CDT procedure are i n the results section. POC GLUCOSE Routine 09/23/2018 4:02 Results for this AM CDT procedure are i n the results section. ESTIMATED GFR Routine 09/23/2018 1:35 Results fo r this AM CDT procedure are i n the results section. PROTHROMBIN TIME WITH Routine 09/23/2018 1:35 Re sults for this INR AM CDT procedure are i n the results section. PHOSPHORUS LEVEL Routine 09/23/2018 1:35 Results for this AM CDT procedure are i n the results section. PARTIAL THROMBOPLASTIN Routine 09/23/2018 1:35 R esults for this TIME (PTT) AM CDT procedure are i n the results section. IONIZED CALCIUM Routine 09/23/2018 1:35 Results for this AM CDT procedure are i n the results section. MAGNESIUM LEVEL Routine 09/23/2018 1:35 Results for this AM CDT procedure are i n the results section. BASIC METABOLIC PANEL Routine 09/23/2018 1:35 Re sults for this AM CDT procedure are i n the results section. CBC HEMOGRAM Routine 09/23/2018 1:35 Results for this AM CDT procedure are i n the results section. POC GLUCOSE Routine 09/22/2018 11:40 Results for this PM CDT procedure are i n the results section. POC GLUCOSE Routine 09/22/2018 7:46 Results for this PM CDT procedure are i n the results section. POTASSIUM LEVEL STAT 09/22/2018 6:00 Results for this PM CDT procedure are i n the results section. POC GLUCOSE Routine 09/22/2018 4:19 Results for this PM CDT procedure are i n the results section. ECG 12-LEAD STAT 09/22/2018 2:07 Results for this PM CDT procedure are i n the results section. XR CHEST 1 VW PORTABLE Routine 09/22/2018 1:16 R esults for this PM CDT procedure are i n the results section. IONIZED CALCIUM, Routine 09/22/2018 1:05 Results for this ARTERIAL PM CDT procedure are i n the results section. ESTIMATED GFR Routine 09/22/2018 1:05 Results fo r this PM CDT procedure are i n the results section. ARTERIAL BLOOD GAS Routine 09/22/2018 1:05 Resul ts for this PM CDT procedure are i n the results section. PARTIAL THROMBOPLASTIN Routine 09/22/2018 1:05 R esults for this TIME (PTT) PM CDT procedure are i n the results section. PROTHROMBIN TIME WITH Routine 09/22/2018 1:05 Re sults for this INR PM CDT procedure are i n the results section. PHOSPHORUS LEVEL Routine 09/22/2018 1:05 Results for this PM CDT procedure are i n the results section. MAGNESIUM LEVEL Routine 09/22/2018 1:05 Results for this PM CDT procedure are i n the results section. HC COMPLETE BLD COUNT Routine 09/22/2018 1:05 Re sults for this W/AUTO DIFF PM CDT procedure are i n the results section. BASIC METABOLIC PANEL Routine 09/22/2018 1:05 Re sults for this PM CDT procedure are i n the results section. POC GLUCOSE Routine 09/22/2018 12:57 Results for this PM CDT procedure are i n the results section. ACTIVATED CLOTTING TIME Routine 09/22/2018 11:53 Results for this AM CDT procedure are i n the results section. ARTERIAL BLOOD GAS, STAT 09/22/2018 11:35 Resu lts for this CORRECTED AM CDT procedure are i n the results section. SODIUM LEVEL, SYRINGE STAT 09/22/2018 11:35 Re sults for this AM CDT procedure are i n the results section. POTASSIUM, SYRINGE STAT 09/22/2018 11:35 Resul ts for this AM CDT procedure are i n the results section. HEMOGLOBIN, SYRINGE STAT 09/22/2018 11:35 Resu lts for this AM CDT procedure are i n the results section. GLUCOSE LEVEL, SYRINGE STAT 09/22/2018 11:35 R esults for this AM CDT procedure are i n the results section. IONIZED CALCIUM, STAT 09/22/2018 11:35 Results for this ARTERIAL AM CDT procedure are i n the results section. ACTIVATED CLOTTING TIME Routine 09/22/2018 11:34 Results for this AM CDT procedure are i n the results section. FIBRINOGEN STAT 09/22/2018 10:59 Results for this AM CDT procedure are i n the results section. PROTHROMBIN TIME WITH STAT 09/22/2018 10:59 Re sults for this INR AM CDT procedure are i n the results section. PLATELET COUNT STAT 09/22/2018 10:59 Results f or this AM CDT procedure are i n the results section. HEMOGLOBIN & HEMATOCRIT STAT 09/22/2018 10:59 Results for this AM CDT procedure are i n the results section. ARTERIAL BLOOD GAS, STAT 09/22/2018 10:59 Resu lts for this CORRECTED AM CDT procedure are i n the results section. SODIUM LEVEL, SYRINGE STAT 09/22/2018 10:59 Re sults for this AM CDT procedure are i n the results section. MAGNESIUM LEVEL STAT 09/22/2018 10:59 Results for this AM CDT procedure are i n the results section. HEMOGLOBIN, SYRINGE STAT 09/22/2018 10:59 Resu lts for this AM CDT procedure are i n the results section. POTASSIUM, SYRINGE STAT 09/22/2018 10:59 Resul ts for this AM CDT procedure are i n the results section. IONIZED CALCIUM, STAT 09/22/2018 10:59 Results for this ARTERIAL AM CDT procedure are i n the results section. GLUCOSE LEVEL, SYRINGE STAT 09/22/2018 10:59 R esults for this AM CDT procedure are i n the results section. ACTIVATED CLOTTING TIME Routine 09/22/2018 10:56 Results for this AM CDT procedure are i n the results section. TRANSFUSE RED BLOOD Routine 09/22/2018 10:44 CELLS AM CDT ACTIVATED CLOTTING TIME Routine 09/22/2018 10:32 Results for this AM CDT procedure are i n the results section. IONIZED CALCIUM, STAT 09/22/2018 10:32 Results for this ARTERIAL AM CDT procedure are i n the results section. GLUCOSE LEVEL, SYRINGE STAT 09/22/2018 10:32 R esults for this AM CDT procedure are i n the results section. POTASSIUM, SYRINGE STAT 09/22/2018 10:32 Resul ts for this AM CDT procedure are i n the results section. HEMOGLOBIN, SYRINGE STAT 09/22/2018 10:32 Resu lts for this AM CDT procedure are i n the results section. SODIUM LEVEL, SYRINGE STAT 09/22/2018 10:32 Re sults for this AM CDT procedure are i n the results section. ARTERIAL BLOOD GAS, STAT 09/22/2018 10:32 Resu lts for this CORRECTED AM CDT procedure are i n the results section. ACTIVATED CLOTTING TIME Routine 09/22/2018 10:04 Results for this AM CDT procedure are i n the results section. ANESTHESIA ROGER Routine 09/22/2018 8:52 AM CDT Procedure Note - Sukumar Byrne MD - 09/22/2018 8:52 AM CDT Procedure Performed: ROGER Start Time: 09/22/2018 8:31 AM End Time: 09/22/2018 8 :40 AM Preanesthesia Checklist: Patient identified, IV asses sed, risks and benefits discussed, monitors and equipment assessed, procedure being performed at surgeon's request, anesthesia consent obtained. General Procedure Informatio n Diagnostic Indications for E cho: assessment of surgical repair and hemodynamic monitoring Physician Requesting Echo: Abraham Melendrez MD Location performed: OR Intubated Probe Type: Multiplane Modalities: Pulse wave Dopp ler, contrast, continuous wave Doppler and color flow mapping Echocardiographic and Dopple r Measurements Ventricles Right Ventricle: Cavity size normal. Thrombu s not present. Global function normal. Left Ventricle: Cavity size normal. Hypertr ophy present. Thrombus not present. Global Function normal. Valves Aortic Valve: Annulus normal. Stenosis no t present. Regurgitation absent. Leaflets normal. Leaflet motions normal. Mitral Valve: Annulus normal. Stenosis no t present. Regurgitation +1. Leaflets normal. Leaflet motions normal. Tricuspid Valve: Annulus normal. Stenosis no t present. Regurgitation +1. Leaflets normal. Leaflet motions normal. Pulmonic Valve: Annulus normal. Regurgitati on absent. Aorta Ascending Aorta: Size normal. Dissection not present. Aortic Arch: Size normal. Dissection not present. Descending Aorta: Size normal. Dissection not present. Atria Right Atrium: Size normal. Spontaneous ec ho contrast not present. Thrombus not present. Tumor not present. Device not present. Left Atrium: Size normal. Spontaneous ec ho contrast not present. Thrombus not present. Tumor not present. Device not present. Left atrial appendage normal . Septa Atrial Septum: Intra-atrial septal morpholo gy normal. Ventricular Septum: Intra-ventricular septum mor phology normal. Diastolic Function Measureme nts: Diastolic Dysfunction Grade= I E= ms A= ms E/A Ratio= DT= ms S/D= IVRT= Other Findings Pericardium: normal Pleural Effusion: none Pulmonary Venous Flow: norm al Anesthesia Information Performed Personally Echocardiogram Comments: Large pulmonary veins n oted, LV hypertrophy, hyperdynamic contractility PA CATHETER Routine 09/22/2018 8:26 AM CDT Procedure Note - Urvashi Franz CRNA - 09/22/2018 8:26 AM CDT PA catheter Performed by: Jessica Byrne MD Authorized by: Gabriel Byrne MD Patient Location: OR Staff: Anesthesiologist: León Byrne MD Performed by: Anesthesiol ogist Preprocedure: patient identi fied, IV checked, site and side verified, risks and benefits discussed, procedure verified, surgical consent complete, patient position confirmed, monitors and equipment checked and pre-op evaluation complete MSBT: antiseptic used, all e lements of maximal sterile barrier technique followed, hand hygiene performed, cap/gown used by other personnel and solutions labeled Procedure details: PA Catheter Type: NIGHT PATROL INSPECTOR and o ximetric PA Catheter Size: 9 PA Catheter Side: Left PA Catheter Site: Internal jugular PA Catheter secured at: 50 cm Waveform: PA Catheter wave c onfirmed Echo guided: Echo guided kristen cement Ports flushed: All ports flu shed pre-procedure Balloon checked: Balloon constanza cked prior to insertion Post-procedure: No arrhythmia: No arrhythm ias noted Patient tolerance: Patien t tolerated the procedure well with no immediate complications GLUCOSE LEVEL, SYRINGE STAT 09/22/2018 8:20 AM CDT Results for this procedure are i n the results section . IONIZED CALCIUM, ARTERIAL STAT 09/22/2018 8:20 AM CDT Results for this procedure are i n the results section . HEMOGLOBIN, SYRINGE STAT 09/22/2018 8:20 AM CDT Results for this procedure are i n the results section . POTASSIUM, SYRINGE STAT 09/22/2018 8:20 AM CDT Results for this procedure are i n the results section . SODIUM LEVEL, SYRINGE STAT 09/22/2018 8:20 AM CDT Results for this procedure are i n the results section . ARTERIAL BLOOD GAS, STAT 09/22/2018 8:20 AM CDT Results for this CORRECTED procedure are i n the results section . ACTIVATED CLOTTING TIME Routine 09/22/2018 8:14 AM CDT Results for this procedure are i n the results section . CENTRAL LINE Routine 09/22/2018 8:09 AM CDT Procedure Note - Sukumar Byrne MD - 09/22/2018 8:09 AM CDT Central line Performed by: Jessica Byrne MD Authorized by: Gabriel Byrne MD Patient Location: OR Staff: Anesthesiologist: León Byrne MD Resident/CADDIE/AA: Urvashi Brandon CRNA Other Staff: Nahed Arita Performed by: Anesthesiol mateo and other staff Preprocedure:patient identif ied, IV checked, site and side verified, risks and benefits discussed, procedure verified, surgical consent complete, patient position confirmed, monitors and equipment checked and pre-op evaluation complete MSBT: antiseptic used during central venous catheter insertion, all elements of maximal sterile barrier technique followed, hand hygiene performed prior to central venous catheter insertion, cap/gown used by other personnel during centr al venous catheter insertion, solutions labeled and all ports not used during insertion clamped Indications: Indications: Central pres sure monitoring and vascular access Anesthesia: Anesthesia: General Procedure details: Patient position: [place] Catheter Type: Double lum en Catheter Size: 9 Fr Catheter Site: internal ju gular vein Catheter site laterality: L eft Pre-procedure: Landmarks i dentified Ultrasound guidance used: Yes Ultrasound image saved: Jweel perkins Number of attempts: 2 Successful placement: Yes Guidewire removal: Guidewi re removal is confirmed Guidewire removal witnesse d by: Urvashi Franz CRNA Post-procedure: Post-procedure: line sutur ed, sterile dressing applied per protocol and ports flushed with saline Post-procedure: Blood roberto aned with CHG and sterile caps on all hubs Assessment: Blood return through all ports and free fluid flow Patient tolerance: Patien t tolerated the procedure well with no immediate complications Notes: Attempted RIJ with US, wi re would not advance, aborted and switched to LIJ with US with no issues with wire or catheter ARTERIAL LINE Routine 09/22/2018 7:51 AM CDT Procedure Note - Urvashi Franz CRNA - 09/22/2018 7:51 AM CDT Arterial line Performed by: Ernestina Arita Authorized by: Gabriel Byrne MD Patient Location: OR Staff: Anesthesiologist: León Byrne MD Resident/CADDIE/AA: Urvashi Brandon CRNA Other Staff: Nahed Arita lle Performed by: Other staff Pre-procedure: patient ident ified, IV checked, site and side verified, risks and benefits discussed, procedure verified, surgical consent complete, patient position confirmed, monitors and equipment checked and pre-op evaluation complete MSBT: antiseptic used, all e lements of maximal sterile barrier technique followed, hand hygiene performed, cap/gown used by other personnel and solutions labeled Indications: Indications: multiple ABGs and hemodynamic monitoring Anesthesia: Anesthesia: General Procedure Details: Arterial Line placement: Placed post induction Line placement site: Radi al Line placement side: Right Arterial line gauge: 20 G Number of attempts: 1 Ultrasound guidance used: Yes Post-procedure: Post-procedure: Sterile d ressing applied Post procedure circulation , sensation, movement: Normal and unchanged Patient tolerance: Patien t tolerated the procedure well with no immediate complications VT AN ELECTIVE ENDOTRACHEAL AIRWAY Routine 09/22/2018 7:50 AM CDT Procedure Note - Urvashi Franz CRNA - 09/22/2018 7:50 AM CDT Airway Performed by: Cate Franz CRNA Authorized by: Gabriel Byrne MD Location: OR Urgency: Elective Difficult Airway: No Anesthesiologist: León Byrne MD Resident/CADDIE/AA: Urvashi Franz CRNA Performed by: resident/CADDIE/AA Preoxygenated with 100% O2: Yes C-spine Precautions Maintain ed Throughout: Yes Mask Ventilation: Assisted mask (2-hand mask) Final Airway Type: Endotrac heal airway Final Endotracheal Airway: ETT Cuffed: Yes Technique Used: Direct ryan ngoscopy Devices/Methods Used in Plac ement: Intubating stylet Insertion Site: Oral Blade Type: Clark Laryngoscope Blade/Videolary ngoscope Blade Size: 2 ETT Size (mm): 8.0 Cuff at minimum occlusion pr essure: Yes Measured from: Lips ETT to Lips (cm): 24 Placement Verified by: CO2 d etection, direct visualization and equal breath sounds Laryngoscopic view: Grade I Ib - view of arytenoids or posterior of glottis only Rapid Sequence Induction (RS I): No Modified RSI: No Number of Attempts at Approa ch: 1 ECG 12-LEAD STAT 09/22/2018 7:14 AM Results for this CDT procedure are i n the results section. POC GLUCOSE Routine 09/22/2018 7:06 AM Results for this CDT procedure are i n the results section. GLUCOSE LEVEL, STAT 09/22/2018 7:02 AM Result s for this SYRINGE CDT procedure are i n the results section. POTASSIUM, STAT 09/22/2018 7:02 AM Results for this SYRINGE CDT procedure are i n the results section. SODIUM LEVEL, STAT 09/22/2018 7:02 AM Results for this SYRINGE CDT procedure are i n the results section. PREPARE RBC STAT 09/22/2018 6:27 AM Results for this CDT procedure are i n the results section. TYPE AND SCREEN STAT 09/22/2018 6:27 AM Resul ts for this CDT procedure are i n the results section. 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 pectoris, unspecified vessel or lesion type (HCC) after 09/02/2018 Results Urinalysis screen and microscopy, with reflex to culture (05/10/2019 8:10 AM EXCELLENCE COACH) Specimen site Clean catch [facility] Color, UA Yellow [facility] Appearance, UA Clear [facility] Specific gravity, UA 1.014 1.001 - 1.035 [facility] pH, UA 6.0 5.0 - 8.5 [facility] Protein, UA 3+ (A) Negative [facility] Glucose, UA 3+ (A) Negative [facility] Ketones, UA Negative Negative [facility] Bilirubin, UA Negative Negative [facility] Blood, UA Negative Negative [facility] Nitrite, UA Negative Negative [facility] Urobilinogen, UA <2.0 <2.0 [facility] Leukocyte esterase, Negative Negative [facility] Round epithelial <1 0 - 1 /HPF [facility] cells, HOSPITAL WBC, UA 4 (H) 0 - 1 /HPF [facility] RBC, UA <1 0 - 5 /HPF [facility] Bacteria, UA Few None seen [facility] Yeast, UA None seen [facility] Yeast with None seen [facility] pseudohyphae, [facility] Specimen Urine Performing Organization Address City/[facility] Phone Number [facility] DEPARTMENT OF PATHOLOGY AND [address] [place], [place] [address] [address] [address] Estimated GFR (05/10/2019 8:10 AM EXCELLENCE COACH)Only the most recent of7 resultswithin the time period is included. Estimated GFR 6 (A) mL/min/1.73 [facility] Comment: HOSPITAL Catergory Units Interpretation G1 >=90 Normal or high G2 60-89 Mildly decreased G3a 45-59 Mildly to moderately decreas ed G3b 30-44 Moderately to severely decre ased G4 15-29 Severely decreased G5 <15 Kidney failure The eGFR was calculated using the Chronic Kidney Disea se Epidemiology Collaboration (CKD-EPI) equation. Interpretation is based on recommendations of the National Kidney Foundation-Kidney Disease Outcomes Moisés lity Initiative (NKF-KDOQI) published in 2014. Specimen Plasma specimen Performing Organization Address City/State/Zipcode Phone Number [facility] DEPARTMENT OF PATHOLOGY AND [address] [place] [address] [phone] [address] Partial thromboplastin time, activated (05/10/2019 8:10 AM EXCELLENCE COACH)Only the most recent of3 resultswithin the time period is included. PTT 32.8 23.0 - 36.0 [facility] Comment: [facility] HOSPITAL PTT therapeutic range for unfractionated heparin is 61.0-112.0 seconds which corresponds to Anti-Xa 0.3-0.7 U/ml. Specimen Blood Performing Organization Address City/[facility]/Zipcode Phone Number [facility] DEPARTMENT OF PATHOLOGY AND [address] [place] [id number] [place] [address] Prothrombin time with INR (05/10/2019 8:10 AM EXCELLENCE COACH)Only the most recent of4 resultswithin the time period is included. Pathologist [facility] Prothrombin time 14.2 11.5 - 14.5 [facility] INR 1.1 [facility] Comment: [facility] International Normalized Ratio (INR) is a [facility] monitoring tool for patients who are stable on oral anticoagulant therapy. An INR of 2.0-3.0 is suggested for deep vein thrombosis/pulmonary embolism. Specimen Blood Performing Organization Address City/[facility] Phone Number [facility] DEPARTMENT OF PATHOLOGY AND [address] [place] [address] [phone] [place] [address] CBC with platelet and differential (05/10/2019 8:10 AM EXCELLENCE COACH)Only the most recent of5 resultswithin the time period is included. Pathologist [facility] WBC 10.29 4.50 - 11.00 [facility] k/uL [facility] RBC 4.73 4.40 - 6.00 [facility] HGB 15.0 14.0 - 18.0 [facility]/dL [facility] HCT 44.8 41.0 - 51.0 % [facility] MCV 94.7 82.0 - 100.0 [facility] MCH 31.7 27.0 - 34.0 pg [facility] MCHC 33.5 31.0 - 37.0 [facility] gdL [facility] RDW - SD 48.3 37.0 - 55.0 fL [facility] MPV 10.5 8.8 - 13.2 fL [facility] Platelet count 249 150 - 400 k/uL [facility] Nucleated RBC 0.00 /100 WBC [facility] Neutrophils 69.8 (H) 39.0 - 69.0 % [facility] Lymphocytes 13.3 (L) 25.0 - 45.0 % [facility] Monocytes 8.9 0.0 - 10.0 % [facility] Eosinophils 6.4 (H) 0.0 - 5.0 % [facility] Basophils 1.1 (H) 0.0 - 1.0 % [facility] Immature granulocytes 0.5Comment: 0.0 - 1.0 % [facility] "Immature HOSPITAL granulocytes" (promyelocytes , myelocytes, metamyelocytes ) Specimen Blood Performing Organization Address City/State/Zipcode Phone Number [facility] DEPARTMENT OF PATHOLOGY AND [address] [place] [address] [phone] [address] Urine culture (05/10/2019 8:10 AM EXCELLENCE COACH) Pathologist Sig nature Urine culture SEE COMMENTComment: [facility] Bacteriuria screen HOSPITAL negative. Specimen Performing Organization Address City/[facility]/Zipcode Phone Number [facility] DEPARTMENT OF PATHOLOGY AND [address] [place] [address] [phone] [address] Comprehensive metabolic panel (05/10/2019 8:10 AM EXCELLENCE COACH) Sodium 137 135 - 148 [facility] mEq/L [facility] Potassium 4.0 3.5 - 5.0 [facility] mEq/L [facility] Chloride 92 (L) 98 - 112 mEq/L [facility] CO2 24 24 - 31 mEq/L [facility] Anion gap 21@ANIO (H) 7 - 15 mEq/L [facility] BUN 56 (H) 6 - 20 mg/dL [facility] Creatinine 9.10 (H) 0.70 - 1.20 [facility] mg/dL HOSPITAL Glucose 204 (H) 65 - 99 mg/dL [facility] Calcium 9.2 8.3 - 10.2 [facility] mg/dL HOSPITAL Protein 8.9 (H) 6.3 - 8.3 g/dL [facility] Comment: HOSPITAL Vxluypf2489.6-7.0 g/dL 1 gpxw5612.4-7.6 g/dL 7 months-9xjyz250.1-7.3 g/dL 1-2 ncwei575.6-7.5 g/dL >3 wnaoq043.0-8.0 g/dL 18-3803582.3-8.3 g/dL Albumin 3.8 3.5 - 5.0 g/dL [facility] A/G ratio 0.7 0.7 - 3.8 [facility] Alkaline phosphatase 130 (H) 40 - 129 U/L [facility] AST 16 10 - 50 U/L [facility] ALT 15 5 - 50 U/L [facility] Total bilirubin 0.4 0.0 - 1.2 [facility] mg/dL HOSPITAL Specimen Plasma specimen Performing Organization Address City/[facility]/Zipcode Phone Number [facility] DEPARTMENT OF PATHOLOGY AND [address] [place] [phone] Occult blood, stool (05/09/2019 3:35 PM EXCELLENCE COACH)Only the most recent of2 results within the time period is included. Occult blood, Negative for occult blood. [facility] stool Comment: HOSPITAL Specimen Information Specimen Source: Stool Specimen Site: Nonpreserved Specimen Stool - Nonpreserved Performing Organization Address City/[facility] Phone Number [facility] DEPARTMENT OF PATHOLOGY AND [address] [place] [phone] Aerobic culture (10/24/2018 5:00 PM CDT)Only the most recent of2 resultswithin the time period is included. Aerobic culture Serratia marcescens [facility] isolate [facility] identification/susceptibility to follow This organism is NOT a carbapenemase producing organis m. (A) Comment: Specimen Information Specimen Source: Wound Specimen Site: leg Aerobic culture Klebsiella oxytoca [facility] isolate [facility] identification/susceptibility to follow This organism is NOT a carbapenemase producing organis m. (A) Specimen Wound - Leg Organism Antibiotic Method Susceptibility Serratia marcescens Amikacin CUCA <=4 mcg/mL: Susceptible Serratia marcescens Amoxicillin/Clavulanate CUCA <=2/ 1 mcg/mL: Resistant Serratia marcescens Ampicillin/Sulbactam CUCA 8/4 mcg /mL: Resistant Serratia marcescens Ampicillin CUCA 16 mcg/mL: R esistant Serratia marcescens Aztreonam CUCA <=1 mcg/mL: Susceptible Serratia marcescens Cefazolin CUCA 8 mcg/mL: Re sistant Serratia marcescens Cefoxitin CUCA >16 mcg/mL: Resistant Serratia marcescens Ceftazidime CUCA <=0.5 mcg/mL : Susceptible Serratia marcescens Ceftriaxone CUCA <=0.5 mcg/mL : Susceptible Serratia marcescens Cefuroxime Sodium CUCA <=4 mcg/mL : Resistant Serratia marcescens Ciprofloxacin CUCA <=0.5 mcg/mL : Susceptible Serratia marcescens Ertapenem CUCA <=0.125 mcg/ mL: Susceptible Serratia marcescens Gentamicin CUCA 1 mcg/mL: Kimball sceptible Serratia marcescens Imipenem CUCA 0.5 mcg/mL: Susceptible Serratia marcescens Levofloxacin CUCA <=1 mcg/mL: Susceptible Serratia marcescens Meropenem CUCA <=0.125 mcg/ mL: Susceptible Serratia marcescens Piperacillin/Tazobactam CUCA <=4/ 4 mcg/mL: Susceptible Serratia marcescens Tetracycline CUCA >8 mcg/mL: R esistant Serratia marcescens Tigecycline CUCA <=0.5 mcg/mL : Susceptible Serratia marcescens Tobramycin CUCA 1 mcg/mL: Kimball sceptible Serratia marcescens Trimethoprim/Sulfamethoxazole CUCA <=0.5/9.5 mcg/mL: Susceptible Serratia marcescens Cefepime CUCA <=0.5 mcg/mL : Susceptible Klebsiella oxytoca Amikacin CUCA <=4 mcg/mL: S usceptible Klebsiella oxytoca Amoxicillin/Clavulanate CUCA <=2/1 mcg/mL: Susceptible Klebsiella oxytoca Ampicillin/Sulbactam CUCA 8/4 mcg/ mL: Susceptible Klebsiella oxytoca Ampicillin CUCA >16 mcg/mL: R esistant Klebsiella oxytoca Aztreonam CUCA <=1 mcg/mL: S usceptible Klebsiella oxytoca Cefazolin CUCA 16 mcg/mL: Re sistant Klebsiella oxytoca Cefoxitin CUCA <=4 mcg/mL: S usceptible Klebsiella oxytoca Ceftazidime CUCA <=0.5 mcg/mL: Susceptible Klebsiella oxytoca Ceftriaxone CUCA <=0.5 mcg/mL: Susceptible Klebsiella oxytoca Cefuroxime Sodium CUCA <=4 mcg/mL: Susceptible Klebsiella oxytoca Ciprofloxacin CUCA <=0.5 mcg/mL: Susceptible Klebsiella oxytoca Ertapenem CUCA <=0.125 mcg/m L: Susceptible Klebsiella oxytoca Gentamicin CUCA 1 mcg/mL: Josefa ceptible Klebsiella oxytoca Imipenem CUCA 0.5 mcg/mL: S usceptible Klebsiella oxytoca Levofloxacin CUCA <=1 mcg/mL: S usceptible Klebsiella oxytoca Meropenem CUCA <=0.125 mcg/m L: Susceptible Klebsiella oxytoca Piperacillin/Tazobactam CUCA <=2/4 mcg/mL: Susceptible Klebsiella oxytoca Tetracycline CUCA <=1 mcg/mL: S usceptible Klebsiella oxytoca Tigecycline CUCA <=0.5 mcg/mL: Susceptible Klebsiella oxytoca Tobramycin CUCA 1 mcg/mL: Josefa ceptible Klebsiella oxytoca Trimethoprim/Sulfamethoxazole CUCA <=0.5/9.5 mcg/mL: Susceptible Klebsiella oxytoca Cefepime CUCA <=0.5 mcg/mL: Susceptible Performing Organization Address City/[facility] Phone Number [facility] DEPARTMENT OF PATHOLOGY AND [address] [place] [phone] Gram stain (10/24/2018 5:00 PM CDT)Only the most recent of2 resultswithin the time period is included. Gram stain isolate No WBC's or organisms seen. JOSE ENRIQUE ROBERSON Comment: HOSPITAL Specimen Information Specimen Source: Wound Specimen Site: leg Specimen Wound - Leg Performing Organization Address [facility] Hospital[facility] Phone Number [facility] DEPARTMENT OF PATHOLOGY AND [address] [place] [phone] Anaerobic culture (10/24/2018 5:00 PM CDT)Only the most recent of2 results within the time period is included. Anaerobic culture No anaerobic organisms isolated. JARRETT ROBERSON isolate Comment: HOSPITAL Specimen Information Specimen Source: Wound Specimen Site: Leg Specimen Wound - Leg Performing Organization Address [facility]/Zipcode Phone Number [facility] DEPARTMENT OF PATHOLOGY AND [address] [place] [phone] XR Chest 2 Vw (10/24/2018 12:38 PM CDT) Specimen Narrative Performed At EXAMINATION: XR CHEST 2 VW HM [facility] CLINICAL HISTORY: Z98.890 Other specified postprocedur al states, Post operative state COMPARISON: 08/24/2018 IMPRESSION: There has been median sternotomy. There is mild cardio megaly. There is small left effusion and basilar volume loss. There is linear atelectasis in the left midlung. Right lung is clear. There is no pneumothorax. Visualized osseous structures are intact . [id number] Procedure Note Hm Interface, Radiology Results Incoming - 10/24/2018 1:00 PM CDT EXAMINATION: XR CHEST 2 VW CLINICAL HISTORY: Z98.890 Other specifie d postprocedural states, Post operative state COMPARISON: 08/24/2018 IMPRESSION: There has been median sternotomy. There is mild cardiomegaly. There is small left effusion and basilar volume loss. There is linear atelectasis in the left midlung. Right lung is clear. There is no pneumothorax. Visualized osseous structures are intact . [id number] Performing Organization Address City/[facility] Phone Number [address] [address] POC glucose (09/27/2018 1:10 PM CDT)Only the most recent of27 resultswithin the time period is included. Pathologist [facility] POC glucose 121 (H) 65 - 99 mg/dL [facility] Comment: [facility] Notified RN Meter ID: [id number] Joiner Apprentice: Jane Somers Specimen Performing Organization Address [facility] Phone Number [facility] DEPARTMENT OF PATHOLOGY AND [address] [place] [phone] [facility]IC[facility] [address] [address] Basic metabolic panel (09/27/2018 4:00 AM CDT)Only the most recent of6 results within the time period is included. [facility] Sodium 135 135 - 148 mEq/L [facility] Potassium 4.5 3.5 - 5.0 mEq/L [facility] Chloride 94 (L) 98 - 112 mEq/L [facility] CO2 23 (L) 24 - 31 mEq/L [facility] Anion gap 18@ANIO (H) 7 - 15 mEq/L [facility] BUN 67 (H) 6 - 20 mg/dL [facility] Creatinine 8.41 (H) 0.70 - 1.20 mg/dL [facility] Glucose 146 (H) 65 - 99 mg/dL [facility] Calcium 7.9 (L) 8.3 - 10.2 mg/dL [facility] Specimen Plasma specimen Performing Organization Address City/[facility] Phone Number [facility] DEPARTMENT OF PATHOLOGY AND [address] [place] [address] [phone] [address] Prepare RBC, 1 Units (09/26/2018 8:00 AM CDT)Only the most recent of2 results within the time period is included. Product name Red Cells AS1 [facility] Leukored [facility] Unit number [id number] [facility] Product code [id number] [facility] Dispense status Transfused [facility] Blood expiration [id number] [facility] Blood type code 5100 [facility] Blood type O POSITIVE [facility] Specimen Blood Performing Organization Address [facility] Phone Number [facility] DEPARTMENT OF PATHOLOGY AND [address] [place] [address] [address] Type and screen (09/26/2018 8:00 AM CDT)Only the most recent of2 resultswithin the time period is included. Pathologist Sig nature ABO grouping O [facility] [facility] Rh type POS [facility] Antibody screen (gel) NEG [facility] Specimen Blood Performing Organization Address [facility] Phone Number [facility] DEPARTMENT OF PATHOLOGY AND [address] [place] [address] [phone] [address] Smear review (09/26/2018 5:30 AM CDT)Only the most recent of2 resultswithin the time period is included. Pathologist Sig nature Platelet slide review Charmaine adequate [facility] Anisocytosis Moderate [facility] Polychromasia Moderate [facility] Ovalocytes Moderate [facility] Enlarged platelets Moderate (A) [facility] Specimen Performing Organization Address [facility] Phone Number [facility] DEPARTMENT OF PATHOLOGY AND [address] [place] [address] [phone] [address] ECG 12 lead (09/25/2018 5:48 PM CDT)Only the most recent of5 resultswithin the time period is included. Pathologist Sig nature Ventricular rate 111 [facility] Atrial rate 111 [facility] VT interval 130 [facility] QRSD interval 104 [facility] QT interval 342 [facility] QTC interval 465 [facility] P axis 1 39 [facility] QRS axis 1 3 [facility] T wave axis 17 [facility] EKG impression Sinus tachycardia-Possible L eft atrial enlargement-Inferior infarct (cited on or before 22-SEP-2018)-Lateral injury pattern-^^ ^^ ACUTE IN ^^ ^^-Abnormal ECG-In automated comparison with ECG of 24-SEP-2018 09:26,-No significant change was [facility] MUSE found- Specimen Narrative Performed At This result has an attachment that is no t available. Performing Organization Address City/State/Zipcode Phone Number [facility] MUSE [address] [place] [address] Echocardiogram complete w contrast and 3D if needed (09/25/2018 5:30 PM CDT) Specimen Narrative Performed At [facility] Echo cardiography Report [id number] [facility], [facility] [address], [place] [address] Pat.Name: BARBARA GRIJALVA Pat.ID: [id number] .Date: 09/25/2018 Refer.MD: ABRAHAM MALAVE MD Exam Time: 4:16:00 PM Study Type:R outine Echo Height: 72in BSA: 2.24 m2 Age: 9 1960,57Y Sex: MALE BP: 168/81 HR: 91 bpm Sonogrphr: JESSE Oscar Pat. Stat.:Inpat ient Room: [address] atus:Final Echo Event ID:[id number] Order ID: [id number] Reason for Study:S/P CABG History / Clinical:Diabetes, Hypertensio n Procedures:2D Echo, Colorflow Doppler, I ntravenous Definity Contrast Race: C SUMMARY: Small anterior and moderate posterior pericardial effusion. Findings are suggestive of increased in trapericardial pressure Right ventricular diastolic collapse is not present. There is no evidence of cardiac tampo nade FINDINGS: LV: LV size is normal. LV EF is normal. Overall wall motion is normal. Estimated EF is 65-69% RV: RV size is normal. RV systo lic function is normal. LA: LA size is normal. RA: RA difficult to visualize AO: Aortic root diameter is nor mal. ECTOR: Small anterior and moderate posterior pe ricardial effusion. Findings are suggestive of increased intrapericardial pressure AV: No structural AV abnormalit ies noted. MV: No structural MV abnormalit ies noted. PV: Pulmonic valve not well see n. TV: No structural TV abnormalit ies noted. A trace of tricuspid regurgitation Christensen: LV relaxation is normal. LV filling pressure is normal. RV respiratory variation is consistent w ith high pericardial pressure. Other: Insufficient TR jet to estim ate PA systolic pressure. MEASUREMENTS: 2D Parasternal Long Chauncey LA Ds 3.9 cm LVPWd 1.5 cm LVOT 2 cm Ao An 2.4 cm LVIDd 4.5 cm Index 2 cm/m Ao Rtd 2.8 cm Index 1.2 cm/m LVIDs 2.8 cm LV Mass 189.9 g (122-17 4) LV%fs 39.1 % LVM Ind ex 84.8 g/m2 IVSd 0.9 cm RWT 0.6 DOPPLER LVOT Stroke Vol LVOT 2.1 cm LVOT C O 6.6 l/min LVOT TVI 19.2 cm LVOT CI 2.9 l/m/m2 LVOT Tm 255 msec HR 99 bpm LVOT SV 66.5 ml Signed 09/26/2018 12:03 PM Rehana Santana M.D. Procedure Note Interface, Radiology Results In - 2018 12:03 PM CDT Echocardiography Report [id number] [address] Pat.Name: BARBARA GRIJALVA Pat.I D: [id number] .Date: 09/25/2018 Refer .MD: ABRAHAM MALAVE MD Exam Time: 4:16:00 PM Study Type:Routine Echo Height: 72in BSA: 2.24 m2 Age: 9 1960,57Y Sex: MALE BP: 168/81 HR: 91 bpm Sonogrphr: JESSE Oscar Pat. Stat.:Inpatient Room: 2023 Study Status:Final Echo Event ID:[id number] Order ID: [id number] Reason for Study:S/P CABG History / Clinical:Diabetes, Hypertensio n Procedures:2D Echo, Colorflow Doppler, I ntravenous Definity Contrast Race: C SUMMARY: Small anterior and moderate posterior p ericardial effusion. Findings are suggestive of increased in trapericardial pressure Right ventricular diastolic collapse is not present. There is no evidence of cardiac tampon lidia FINDINGS: LV: LV size is normal. LV EF is no rmal. Overall wall motion is normal. Estimated EF is 65-69 % RV: RV size is normal. RV systolic function is normal. LA: LA size is normal. RA: RA difficult to visualize AO: Aortic root diameter is normal . ECTOR: Small anterior and moderate p osterior pericardial effusion. Findings are suggestive of in creased intrapericardial pressure AV: No structural AV abnormalities noted. MV: No structural MV abnormalities noted. PV: Pulmonic valve not well seen. TV: No structural TV abnormalities noted. A trace of tricuspid regurgitation Christensen: LV relaxation is normal. LV fi lling pressure is normal. RV respiratory variation is cons istent with high pericardial pressure. Other: Insufficient TR jet to estimat e PA systolic pressure. MEASUREMENTS: 2D Parasternal Long Chaun[place]y LA Ds 3.9 cm LVPW d 1.5 cm LVOT 2 cm Ao A n 2.4 cm LVIDd 4.5 cm Inde x 2 cm/m Ao Rtd 2.8 cm Index 1.2 cm/m LVIDs 2.8 cm LV Mass 189.9 g (122-174) LV%fs 39.1 % LVM Index 84.8 g/m2 IVSd 0.9 cm RWT 0.6 DOPPLER LVOT Stroke Vol LVOT 2.1 cm LVOT CO 6.6 l/min LVOT TVI 19.2 cm LVOT CI 2.9 l/m/m2 LVOT Tm 255 msec HR 99 bpm LVOT SV 66.5 ml Signed 09/26/2018 12:03 PM Rehana Santana M.D. Performing Organization Address City/State/Zipcode Phone Number [facility] [address] [place] [address] CBC hemogram (09/24/2018 5:15 AM CDT)Only the most recent of2 resultswithin the time period is included. [facility] Sig nature WBC 10.82 4.50 - 11.00 k/uL [facility] RBC 2.39 (L) 4.40 - 6.00 m/uL [facility] HGB 7.3 (L) 14.0 - 18.0 g/dL [facility] HCT 22.0 (L) 41.0 - 51.0 % [facility] MCV 92.1 82.0 - 100.0 fL [facility] MCH 30.5 27.0 - 34.0 pg [facility] MCHC 33.2 31.0 - 37.0 g/dL [facility] RDW - SD 49.8 37.0 - 55.0 fL [facility] MPV 11.3 8.8 - 13.2 fL [facility] Platelet count 137 (L) 150 - 400 k/uL [facility] Nucleated RBC 0.00 /100 WBC [facility] Specimen Blood Performing Organization Address [facility] Phone Number [facility] DEPARTMENT OF PATHOLOGY AND [address] [place] [address] [place] [address] Magnesium level (09/24/2018 5:15 AM CDT)Only the most recent of4 resultswithin the time period is included. Pathologist Sig [facility] Magnesium 2.3 1.6 - 2.6 mg/dL [facility] L Specimen Plasma specimen Performing Organization Address [facility] Phone Number [facility] DEPARTMENT OF PATHOLOGY AND [address] [place] [address] [phone] [address] Ionized calcium (09/24/2018 5:15 AM CDT)Only the most recent of2 resultswithin the time period is included. Pathologist Sig [facility] pH 7.58 [facility] Ionized calcium 0.93 (L) 1.11 - 1.32 [facility] mmol/L HOSPITAL Specimen Plasma specimen Performing Organization Address [facility] Phone Number [facility] DEPARTMENT OF PATHOLOGY AND [address] [place] [address] [phone] [address] XR Chest 1 Vw Portable (09/23/2018 10:49 AM CDT)Only the most recent of3 results within the time period is included. Specimen Narrative Performed At EXAMINATION: XR CHEST 1 VW PORTABLE RADIANT CLINICAL HISTORY: ICU pt recent ches t tube removal COMPARISON: Earlier same day chest rad iograph IMPRESSION: 1. Interval removal of the left-sided chest tube with a trace left apical pneumothorax present. 2. Obscuration of left hemidiaphragm and retrocardiac density may represent atelectasis although infectiou s process is not excluded. 3. Unchanged cardiomegaly with sternotomy and decrease d pneumomediastinum/pneumopericardium. 4. Unchanged osseous structures. [facility]-[id number] Procedure Note Hm Interface, Radiology Results Incoming - 09/23/2018 10:59 AM CDT EXAMINATION: XR CHEST 1 VW PORTABLE CLINICAL HISTORY: ICU pt recent chest tube removal COMPARISON: Earlier same day chest radi ograph IMPRESSION: 1. Interval removal of the left-sided ch est tube with a trace left apical pneumothorax present. 2. Obscuration of left hemidiaphragm and retrocardiac density may represent atelectasis although infectious process is not excluded. 3. Unchanged cardiomegaly with sternotom y and decreased pneumomediastinum/pneumopericardium. 4. Unchanged osseous structures. [facility]-[id number] Performing Organization Address [facility] Phone Number [facility] [address] [place] [address] Line/Drain Removal (09/23/2018 10:25 AM CDT) Narrative Performed At Baudilio Beck Jr., PA-C 9 10:26 AM Line/Drain Removal Date/Time: 09/23/2018 10:25 AM Performed by: aBudilio Beck Jr., PA-C Authorized by: Baudilio Beck Jr., PA-C Pre-procedure details: Line or drain removed: Chest tube Chest Tube Removal: Chest tube removed from suction: Yes Sutures retied: Yes Removal procedure: Number of people performing procedure : 1 Breath held: Yes Dressing applied:: 4x4 sterile gauze and occlusiv e Hepatitis B surface antigen (09/23/2018 8:41 AM CDT) Pathologist Sig nature Hepatitis B surface Non-reactive Non-reactive [facility] Specimen Blood Performing Organization Address City/[facility]/Zipcode Phone Number [facility] DEPARTMENT OF PATHOLOGY AND [address] [place], [place] [address] GENOMIC MEDICINE [address] [address] Phosphorus level (09/23/2018 1:35 AM CDT)Only the most recent of2 resultswithin the time period is included. Pathologist Sig nature Phosphorus 3.5 2.4 - 4.5 mg/dL [facility] L Specimen Plasma specimen Performing Organization Address [facility] Phone Number [facility] DEPARTMENT OF PATHOLOGY AND [address] [place] [address] [place] [address] Potassium level (09/22/2018 6:00 PM CDT) Pathologist Sig nature Potassium 5.1 (H) 3.5 - 5.0 mEq/L [facility] L Specimen Plasma specimen Performing Organization Address [facility] Phone Number [facility] DEPARTMENT OF PATHOLOGY AND [address] [place] [phone] [place] [address] Ionized calcium, arterial (09/22/2018 1:05 PM CDT)Only the most recent of5 resultswithin the time period is included. Pathologist Sig nature Ionized calcium, 1.00 (L) 1.11 - 1.32 [facility] arterial mmol/L [facility]OSPITAL Specimen Blood Performing Organization Address [facility] Phone Number [facility] DEPARTMENT OF PATHOLOGY AND [address] [place] [address] [place] [address] Arterial blood gas (09/22/2018 1:05 PM CDT) Pathologist Sig nature pH, arterial 7.39 7.35 - 7.45 [facility] pCO2, arterial 38 35 - 45 mmHg [facility] pO2, arterial 229 (H) 80 - 90 mmHg [facility] Bicarbonate, 22.8 21.0 - 28.0 [facility] mmol/L [facility] Base excess, -1 -2 - 2 mEq/L [facility] O2 saturation, 99 95 - 100 % [facility] arterial [facility]OSPITAL Specimen Blood Performing Organization Address [facility] Phone Number [facility] DEPARTMENT OF PATHOLOGY AND [address] [place] [address] Activated clotting time (09/22/2018 11:53 AM CDT)Only the most recent of6 resultswithin the time period is included. Activated clotting 101 96 - 152 sec [facility] Comment: HOSPITAL Meter ID: [id number] Joiner Apprentice: Pamela Landin Specimen Performing Organization Address [facility] Phone Number [facility] DEPARTMENT OF PATHOLOGY AND [address] [place] [address] [place] [address] Sodium level, syringe (09/22/2018 11:35 AM CDT)Only the most recent of5 results within the time period is included. Pathologist Sig nature Sodium, syringe 134 (L) 135 - 148 mEq/L [facility] Specimen Blood Performing Organization Address [facility] Phone Number [facility] DEPARTMENT OF PATHOLOGY AND [address] [place] [address] [phone] [address] Potassium, syringe (09/22/2018 11:35 AM CDT)Only the most recent of5 results within the time period is included. Pathologist Sig nature Potassium, syringe 5.9 (H) 3.5 - 5.0 mEq/L [facility] Specimen Blood Performing Organization Address [facility] Phone Number [facility] DEPARTMENT OF PATHOLOGY AND [address] [place] [address] [phone] [address] Hemoglobin, syringe (09/22/2018 11:35 AM CDT)Only the most recent of4 results within the time period is included. Pathologist Sig nature Hemoglobin, syringe 8.4 (L) 14.0 - 18.0 g/dL [facility] Specimen Blood Performing Organization Address [facility] Phone Number [facility] DEPARTMENT OF PATHOLOGY AND [address] [place] [address] [phone] [address] Glucose level, syringe (09/22/2018 11:35 AM CDT)Only the most recent of5 results within the time period is included. Pathologist Sig nature Glucose, syringe 158 (H) 65 - 99 mg/dL [facility] Specimen Blood Performing Organization Address [facility] Phone Number [facility] DEPARTMENT OF PATHOLOGY AND [address] [place] [address] [phone] [address] Arterial blood gas, corrected (09/22/2018 11:35 AM CDT)Only the most recent of4 resultswithin the time period is included. [facility] pH, arterial 7.31 (L) 7.35 - 7.45 [facility] pCO2, arterial 54 (H) 35 - 45 mmHg [facility] pO2, arterial 255 (H) 80 - 90 mmHg [facility] Temperature, Celsius 37.0 Degrees C [facility] O2 saturation, 99 95 - 100 % [facility] arterial HOSPITAL pH, arterial 7.31 [facility] pCO2, arterial 54 mmHg [facility] pO2, arterial 255 mmHg [facility] Base excess, arterial 0 -2 - 2 mEq/L [facility] Specimen Blood Performing Organization Address City/[facility] Phone Number [facility] DEPARTMENT OF PATHOLOGY AND [address] [place] [address] [phone] [address] Hemoglobin & hematocrit (09/22/2018 10:59 AM CDT) [facility] HGB 7.8 (L) 14.0 - 18.0 g/dL [facility] HCT 23.3 (L) 41.0 - 51.0 % [facility] Specimen Performing Organization Address City/[facility] Phone Number [facility] DEPARTMENT OF PATHOLOGY AND [address] [place] [address] [phone] [address] Fibrinogen (09/22/2018 10:59 AM CDT) [facility] Fibrinogen 340 200 - 450 mg/dL [facility] L Specimen Blood Performing Organization Address City/[facility] Phone Number [facility] DEPARTMENT OF PATHOLOGY AND [address] [place] [address] [phone] [address] Platelet count (09/22/2018 10:59 AM CDT) [facility] Platelet count 149 (L) 150 - 400 k/uL [facility] Specimen Performing Organization Address City/[facility] Phone Number [facility] DEPARTMENT OF PATHOLOGY AND [address] [place] [address] [phone] [address] Transfuse RBC (09/22/2018 10:44 AM CDT)Spirometry, diffusion, lung volumes (09/08/2018 2:20 PM CDT) [facility] Sig nature FEV1 Pre 2.87 2.94 - 4.48 L [facility] FEV1/FVC % Pre 83.60 68.25 - 86.44 % [facility] FVC Pre 3.43 3.83 - 5.65 L [facility] PEF Pre 4.17 6.79 - 12.10 L/s [facility] FEF 25-75% Pre 3.51 1.69 - 5.14 L/s [facility] DLCO Pre 18.47 20.93 - 36.86 [facility] ml/(min*mmHg) DL/VA Pre 3.68 3.11 - 5.51 [facility] ml/(min*mmHg*L) VA SB Pre 5.02 5.46 - 8.19 L [facility] DLCOc Pre 21.34 20.93 - 36.86 [facility] ml/(min*mmHg) KCOc SB Pre 4.25 3.11 - 5.51 [facility] ml/(min*mmHg*L) Hb Pre 10.60 g(Hb)/dL [facility] R0.5IN Pre 1.74 3.06 - 3.06 [facility] cmH2O*s/L FRCpl Pre 2.42 2.61 - 4.58 L [facility] RV Pre 2.22 1.70 - 3.05 L [facility] TLC Pre 5.63 5.97 - 8.28 L [facility] RV % TLC Pre 39.39 27.60 - 45.56 % [facility] VC Pre 3.41 3.83 - 5.65 L [facility] ERV Pre 0.20 1.22 - 1.22 L [facility] IC Pre 3.22 3.35 - 3.35 L [facility] sR0.5IN Pre 5.24 cmH2O*s [facility] Raw Pre 1.85 3.06 - 3.06 [facility] cmH2O*s/L sGaw Predicted 0.18 0.08 - 0.08 [facility] 1/(cmH2O*s) FEV1 Predicted 3.71 [facility] FEV1 LLN 2.94 [facility] FEV1 % Pre of Predicted 77.3 % [facility] FVC Predicted 4.74 [facility] FVC LLN 3.83 [facility] FVC % Pre of Predicted 72.3 % [facility] FEV1/FVC % Predicted 77 [facility] FEV1/FVC % LLN 68 [facility] FEV1/FVC % Pre of 108.1 % [facility] Predicted FEF 25-75% Predicted 3.42 [facility] FEF 25-75% LLN 1.69 [facility] FEF 25-75% % Pre of 102.9 % [facility] Predicted PEF Predicted 9.44 [facility] PEF LLN 6.79 [facility] PEF % Pre of Predicted 44.1 % [facility] VC Predicted 4.74 [facility] VC LLN 3.83 [facility] VC % Pre of Predicted 72.0 % [facility] ERV Predicted 1.22 [facility] ERV LLN 1.22 [facility] ERV % Pre of Predicted 16.3 % [facility] FRCpl % Predicted 3.59 [facility] FRCpl % LLN 2.61 [facility] FRCpl % Pre of Predicted 67.3 % [facility] IC Predicted 3.35 [facility] IC LLN 3.35 [facility] IC % Pre of Predicted 95.9 % [facility] RV Predicted 2.38 [facility] RV LLN 1.70 [facility] RV % Pre of Predicted 93.4 % [facility] RV % TLC Predicted 37 [facility] RV % TLC LLN 28 [facility] RV % TLC % Pre of 107.7 % [facility] Predicted TLC Predicted 7.13 [facility] TLC LLN 5.97 [facility] TLC % Pre of Predicted 79.0 % [facility] Raw Predicted 3.06 [facility] Raw LLN 3.06 [facility] Raw % Pre of Predicted 60.5 % [facility] R0.5IN Predicted 3.06 [facility] R0.5IN LLN 3.06 [facility] R0.5IN % Pre of 56.7 % [facility] Predicted sGaw Predicted 0.08 [facility] sGaw LLN 0.08 [facility] sGaw % Pre of Predicted 214.7 % [facility] DLCO Predicted 28.90 [facility] DLCO LLN 20.93 [facility] DLCO % Pre of Predicted 63.9 % [facility] DLCOc Predicted 28.90 [facility] DLCOc LLN 20.93 [facility] DLCOc % Pre of Predicted 73.8 % [facility] DL/VA Predicted 4.31 [facility] DL/VA LLN 3.11 [facility] DL/VA % Pre of Predicted 85.4 % [facility] KCOc SB Predicted 4.31 [facility] KCOc SB LLN 3.11 [facility] KCOc SB % Pre of 98.6 % [facility] Predicted VA SB Predicted 6.82 [facility] VA SB LLN 5.46 [facility] VA SB % Pre of Predicted 73.7 % [facility] Specimen Narrative Performed At This result has an attachment that is no t available. Performing Organization Address City/State/Zipcode Phone Number [facility] [address] [facility] 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
--- OUTSIDE RECORDS SUMMARY | 2019-09-03 16:57 | XMS REPORT | Clinical Summary ---
:1960 Author Organization [facility] Address [address] [place] [address] Care Team Providers Name Role Phone Tito Duval MD Primary Care Provider [phone] Bill Rosales Unavailable Allergies No Known Allergies Medications Medication Sig Dispensed Refills Start Date End Date Status amLODIPine (NORVASC) Take 1 tablet (10 0 06/27/2019 Active 10 MG tablet mg total) by mouth 1 daily. carvediloL (COREG) Take 1 tablet (12.5 0 06/27/2019 Active 12.5 MG tablet mg total) by mouth 1 2 (two) times daily. hydrALAZINE Take 1 tablet (25 0 06/27/2019 Active (APRESOLINE) 25 MG mg total) by mouth 1 tablet 2 (two) times daily. spironolactone Take 1 tablet (25 0 06/27/2019 Active (ALDACTONE) 25 MG mg total) by mouth 1 tablet daily. furosemide (LASIX) Take 1 tablet (40 0 06/27/2019 Active 40 MG tablet mg total) by mouth 1 daily. gabapentin Take 1 capsule (300 0 06/27/2019 06/27/19 2 Active (NEURONTIN) 300 MG mg total) by mouth 1 capsule daily. aspirin 81 MG Take 1 tablet (81 0 06/27/2019 02 Active chewable tablet mg total) by mouth 1 daily. sevelamer (RENVELA) Take 4 tablets 0 06/27/201906/06 Active 800 mg tablet (3,200 mg total) by 1 mouth 3 (three) times daily with meals. senna-docusate Take 2 tablets by 0 06/27/2019 Active (SENOKOT S) 8.6-50 mouth nightly. 1 mg per tablet insulin detemir Inject 0.1 mLs (10 0 06/27/2019 Active U-100 (LEVEMIR) 100 Units total) unit/mL (3 mL) InPn subcutaneously 2 injection (two) times daily. sodium hypochlorite Apply topically 2 473 mL 0 06/27/2019 0 (DAKIN'S, (two) times daily 0 HALF-STRENGTH,) 0.25 for 7 days. % external solution mupirocin Apply 1 g topically 22 g 0 06/27/2019 (BACTROBAN) 2 % daily for 7 days. 0 ointment traMADoL (ULTRAM) 50 Take 1 tablet (50 30 tablet 0 06/27/2019 mg tablet mg total) by mouth 0 every 6 (six) hours as needed for up to 10 days. Max Daily Amount: 200 mg HYDROcodone-acetamin Take 1 tablet by 30 tablet 0 06/27/2019 0 ophen (NORCO 10-325) mouth every 6 (six) 0 10-325 mg per tablet hours as needed for up to 10 days. Max Daily Amount: 4 tablets amoxicillin-clavulan Take 1 tablet by 6 tablet 0 06/27/2019 0 ate (AUGMENTIN) mouth daily for 6 0 500-125 mg per days. tablet mINOCYCLine Take 1 capsule (100 12 capsule 0 06/27/2019 (MINOCIN,DYNACIN) mg total) by mouth 0 100 MG capsule every 12 (twelve) hours for 6 days. polyethylene glycol Take 34 g by mouth 14 each 0 06/27/2019 (GLYCOLAX) 17 gram 2 (two) times daily 0 packet for 3 days. Active Problems Problem Noted Date Gangrene of right foot 06/14/2019 Ischemia of foot 06/14/2019 CKD (chronic kidney disease) stage V requiring chronic dialysis 06/14/2019 Type 2 diabetes mellitus with diabetic peripheral you opathy and gangrene, 06/14/2019 with long-term current use of insulin PAD (peripheral artery disease) 06/14/2019 ESRD on hemodialysis Encounters Date Type Specialty Care Team Description 06/19/2019 Surgery Star Mirza AMPUTATION,TOE A., DPM 06/19/2019 Anesthesia Event Froylan Alvarez MD 06/19/2019 Orders Only General Internal Medicine 06/15/2019 Surgery Clark Danielle / MD Fela AORTOGRAM 06/14/2019 - Hospital Encounter Cardiology Pepper Gar Ischemia of foot; 06/27/2019 MD Keny Hx of CABG; Shanda, Type 2 diabetes mellitus with diabetic neuropathy, without long- term current use of insulin ([facility]); Shi Benign essentia l HTN; MD Jeremy ESRD on dialysis ([facility]); Marko Mcdaniel PAD (periphe ral artery disease) ([facility]); Gangrene of rig ht foot ([facility]); Status post amp utation of lesser toe, right ([facility]); Type 2 diabetes mellitus with diabetic peripheral angiopathy and gangrene, with long-term current use of insulin ([facility]); History of blackwell smetatarsal amputation of right foot ([facility]) 06/14/2019 Travel after 09/02/2018 Family History Medical History Relation Name Comments Diabetes Father Diabetes Mother Relation Name Status Comments Father Mother Social History Tobacco Use Types Packs/Day Years Used Date Former Smoker Smokeless Tobacco: Never Used Alcohol Use Drinks/Week oz/Week Comments No Alcohol Habits Answer Date Recorded How often do you have a drink containing alcohol? Never 06/14/2019 How many drinks containing alcohol do you have on a typical Not asked day when you are drinking? How often do you have six or more drinks on one occasion? No t asked Sex Assigned at Date Recorded Not on file Job Start Date Occupation Industry Not on file Not on file Not on file Travel History Travel Start Travel End No recent travel history available. Last Filed Vital Signs Vital Sign Reading Time Taken Blood Pressure 131/67 06/27/2019 12:00 PM CDT Pulse 79 06/27/2019 12:00 PM CDT Temperature 36.4 C (97.6 F) 06/27/2019 12:00 PM CDT Respiratory Rate 18 06/27/2019 12:00 PM CDT Oxygen Saturation 96% 06/27/2019 12:00 PM CDT Inhaled Oxygen Concentration - - Weight 99.1 kg (218 lb 7.6 oz) 06/27/2019 11:45 AM CDT Height 185.4 cm (6' 1") 06/14/2019 8:36 AM CDT Body Mass Index 28.82 06/27/2019 11:45 AM CDT Plan of Treatment Not on file Implants Implanted Type Area Product Design Specialist Device Shelf Model / Identifier Expiration Serial / Date Lot Pwdr Cellerate Rx 5mg Surgical [id number]-78-[id number] - [id number] IMPLANT S Right: WOUND CARE 09/03/2021 [id number] / Implanted: Qty: 1 on 06/19/2019 by Star Mirza DPM [employer] / [id number] Procedures Procedure Name Priority Date/Time Associated Comments Diagnosis RHYTHM STRIP - SCAN 07/04/2019 12:40 PM CDT TRANSFUSION SERVICE 06/29/2019 6:00 REPORT - SCAN PM CDT RHYTHM STRIP - SCAN 06/29/2019 9:01 AM CDT REPORT OF PROCEDURE - 06/29/2019 9:01 ENDOSCOPY SCAN AM CDT CARDIAC CATH REPORT - 06/29/2019 9:01 SCAN AM CDT PREPARE LEUKO-REDUCED [facility] 06/28/2019 11:54 Re sults for this RBC PM CDT procedure are i n the results section. TRANSFUSION SERVICE 06/28/2019 6:00 REPORT - SCAN PM CDT POCT-GLUCOSE METER Routine 06/27/2019 12:06 Resul ts for this PM CDT procedure are i n the results section. HEMODIALYSIS Routine 06/27/2019 11:56 Results for this INPATIENT AM CDT procedure are i n the results section. TRANSFUSE CARMEN 06/27/2019 10:49 LEUKO-REDUCED RED AM CDT BLOOD CELLS TYPE AND SCREEN, [facility] 06/27/2019 8:45 Results for this AUTOMATED AM CDT procedure are i n the results section. POCT-GLUCOSE METER Routine 06/27/2019 7:52 Resul ts for this AM CDT procedure are i n the results section. CBC W/PLT COUNT & Routine 06/27/2019 3:39 Result s for this AUTO DIFFERENTIAL AM CDT procedure are in the results section. CBC W/PLT COUNT & Routine 06/27/2019 3:39 Result s for this AUTO DIFFERENTIAL AM CDT procedure are in the results section. PHOSPHORUS Routine 06/27/2019 3:39 Results for this AM CDT procedure are i n the results section. MAGNESIUM Routine 06/27/2019 3:39 Results for this AM CDT procedure are i n the results section. BASIC METABOLIC PANEL Routine 06/27/2019 3:39 Re sults for this (7) AM CDT procedure are i n the results section. POCT-GLUCOSE METER Routine 06/26/2019 8:54 Resul ts for this PM CDT procedure are i n the results section. POCT-GLUCOSE METER Routine 06/26/2019 4:40 Resul ts for this PM CDT procedure are i n the results section. POCT-GLUCOSE METER Routine 06/26/2019 11:38 Resul ts for this AM CDT procedure are i n the results section. POCT-GLUCOSE METER Routine 06/26/2019 7:08 Resul ts for this AM CDT procedure are i n the results section. CBC W/PLT COUNT & Routine 06/26/2019 3:31 Result s for this AUTO DIFFERENTIAL AM CDT procedure are in the results section. CBC W/PLT COUNT & Routine 06/26/2019 3:31 Result s for this AUTO DIFFERENTIAL AM CDT procedure are in the results section. PHOSPHORUS Routine 06/26/2019 3:31 Results for this AM CDT procedure are i n the results section. MAGNESIUM Routine 06/26/2019 3:31 Results for this AM CDT procedure are i n the results section. BASIC METABOLIC PANEL Routine 06/26/2019 3:31 Re sults for this (7) AM CDT procedure are i n the results section. POCT-GLUCOSE METER Routine 06/25/2019 11:51 Resul ts for this PM CDT procedure are i n the results section. POCT-GLUCOSE METER Routine 06/25/2019 9:05 Resul ts for this PM CDT procedure are i n the results section. POCT-GLUCOSE METER Routine 06/25/2019 4:41 Resul ts for this PM CDT procedure are i n the results section. POCT-GLUCOSE METER Routine 06/25/2019 1:46 Resul ts for this PM CDT procedure are i n the results section. POCT-GLUCOSE METER Routine 06/25/2019 11:06 Resul ts for this AM CDT procedure are i n the results section. HEMODIALYSIS Routine 06/25/2019 8:18 Results for this INPATIENT AM CDT procedure are i n the results section. POCT-GLUCOSE METER Routine 06/25/2019 7:47 Resul ts for this AM CDT procedure are i n the results section. CBC W/PLT COUNT & Routine 06/25/2019 6:03 Result s for this AUTO DIFFERENTIAL AM CDT procedure are in the results section. CBC W/PLT COUNT & Routine 06/25/2019 6:03 Result s for this AUTO DIFFERENTIAL AM CDT procedure are in the results section. PHOSPHORUS Routine 06/25/2019 6:03 Results for this AM CDT procedure are i n the results section. MAGNESIUM Routine 06/25/2019 6:03 Results for this AM CDT procedure are i n the results section. BASIC METABOLIC PANEL Routine 06/25/2019 6:03 Re sults for this (7) AM CDT procedure are i n the results section. POCT-GLUCOSE METER Routine 06/24/2019 9:30 Resul ts for this PM CDT procedure are i n the results section. POCT-GLUCOSE METER Routine 06/24/2019 4:41 Resul ts for this PM CDT procedure are i n the results section. POCT-GLUCOSE METER Routine 06/24/2019 11:55 Resul ts for this AM CDT procedure are i n the results section. POCT-GLUCOSE METER Routine 06/24/2019 7:52 Resul ts for this AM CDT procedure are i n the results section. CBC W/PLT COUNT & Routine 06/24/2019 4:28 Result s for this AUTO DIFFERENTIAL AM CDT procedure are in the results section. CBC W/PLT COUNT & Routine 06/24/2019 4:28 Result s for this AUTO DIFFERENTIAL AM CDT procedure are in the results section. PHOSPHORUS Routine 06/24/2019 4:27 Results for this AM CDT procedure are i n the results section. MAGNESIUM Routine 06/24/2019 4:27 Results for this AM CDT procedure are i n the results section. BASIC METABOLIC PANEL Routine 06/24/2019 4:27 Re sults for this (7) AM CDT procedure are i n the results section. POCT-GLUCOSE METER Routine 06/23/2019 9:43 Resul ts for this PM CDT procedure are i n the results section. POCT-GLUCOSE METER Routine 06/23/2019 4:56 Resul ts for this PM CDT procedure are i n the results section. POCT-GLUCOSE METER Routine 06/23/2019 11:30 Resul ts for this AM CDT procedure are i n the results section. POCT-GLUCOSE METER Routine 06/23/2019 7:44 Resul ts for this AM CDT procedure are i n the results section. CBC W/PLT COUNT & Routine 06/23/2019 4:58 Result s for this AUTO DIFFERENTIAL AM CDT procedure are in the results section. VANCOMYCIN LEVEL, Routine 06/23/2019 4:58 Result s for this RANDOM AM CDT procedure are i n the results section. CBC W/PLT COUNT & Routine 06/23/2019 4:58 Result s for this AUTO DIFFERENTIAL AM CDT procedure are in the results section. PHOSPHORUS Routine 06/23/2019 4:58 Results for this AM CDT procedure are i n the results section. MAGNESIUM Routine 06/23/2019 4:58 Results for this AM CDT procedure are i n the results section. BASIC METABOLIC PANEL Routine 06/23/2019 4:58 Re sults for this (7) AM CDT procedure are i n the results section. POCT-GLUCOSE METER Routine 06/22/2019 8:50 Resul ts for this PM CDT procedure are i n the results section. POCT-GLUCOSE METER Routine 06/22/2019 4:55 Resul ts for this PM CDT procedure are i n the results section. HEMODIALYSIS Routine 06/22/2019 12:02 Results for this INPATIENT PM CDT procedure are i n the results section. POCT-GLUCOSE METER Routine 06/22/2019 12:00 Resul ts for this PM CDT procedure are i n the results section. POCT-GLUCOSE METER Routine 06/22/2019 11:28 Resul ts for this AM CDT procedure are i n the results section. POCT-GLUCOSE METER Routine 06/22/2019 8:00 Resul ts for this AM CDT procedure are i n the results section. CBC W/PLT COUNT & Routine 06/22/2019 4:19 Result s for this AUTO DIFFERENTIAL AM CDT procedure are in the results section. VANCOMYCIN LEVEL, Routine 06/22/2019 4:19 Result s for this RANDOM AM CDT procedure are i n the results section. CBC W/PLT COUNT & Routine 06/22/2019 4:19 Result s for this AUTO DIFFERENTIAL AM CDT procedure are in the results section. PHOSPHORUS Routine 06/22/2019 4:19 Results for this AM CDT procedure are i n the results section. MAGNESIUM Routine 06/22/2019 4:19 Results for this AM CDT procedure are i n the results section. BASIC METABOLIC PANEL Routine 06/22/2019 4:19 Re sults for this (7) AM CDT procedure are i n the results section. POCT-GLUCOSE METER Routine 06/21/2019 9:27 Resul ts for this PM CDT procedure are i n the results section. POCT-GLUCOSE METER Routine 06/21/2019 4:51 Resul ts for this PM CDT procedure are i n the results section. POCT-GLUCOSE METER Routine 06/21/2019 12:08 Resul ts for this PM CDT procedure are i n the results section. POCT-GLUCOSE METER Routine 06/21/2019 8:07 Resul ts for this AM CDT procedure are i n the results section. CBC W/PLT COUNT & Routine 06/21/2019 3:33 Result s for this AUTO DIFFERENTIAL AM CDT procedure are in the results section. CBC W/PLT COUNT & Routine 06/21/2019 3:33 Result s for this AUTO DIFFERENTIAL AM CDT procedure are in the results section. PHOSPHORUS Routine 06/21/2019 3:33 Results for this AM CDT procedure are i n the results section. MAGNESIUM Routine 06/21/2019 3:33 Results for this AM CDT procedure are i n the results section. BASIC METABOLIC PANEL Routine 06/21/2019 3:33 Re sults for this (7) AM CDT procedure are i n the results section. POCT-GLUCOSE METER Routine 06/20/2019 8:35 Resul ts for this PM CDT procedure are i n the results section. POCT-GLUCOSE METER Routine 06/20/2019 5:00 Resul ts for this PM CDT procedure are i n the results section. POCT-GLUCOSE METER Routine 06/20/2019 12:23 Resul ts for this PM CDT procedure are i n the results section. POCT-GLUCOSE METER Routine 06/20/2019 10:01 Resul ts for this AM CDT procedure are i n the results section. POCT-GLUCOSE METER Routine 06/20/2019 8:40 Resul ts for this AM CDT procedure are i n the results section. HEMODIALYSIS Routine 06/20/2019 7:21 INPATIENT AM CDT CBC W/PLT COUNT & Routine 06/20/2019 4:10 Result s for this AUTO DIFFERENTIAL AM CDT procedure are in the results section. VANCOMYCIN LEVEL, Routine 06/20/2019 4:10 Result s for this RANDOM AM CDT procedure are i n the results section. CBC W/PLT COUNT & Routine 06/20/2019 4:10 Result s for this AUTO DIFFERENTIAL AM CDT procedure are in the results section. PHOSPHORUS Routine 06/20/2019 4:10 Results for this AM CDT procedure are i n the results section. MAGNESIUM Routine 06/20/2019 4:10 Results for this AM CDT procedure are i n the results section. BASIC METABOLIC PANEL Routine 06/20/2019 4:10 Re sults for this (7) AM CDT procedure are i n the results section. POCT-GLUCOSE METER Routine 06/19/2019 9:08 Resul ts for this PM CDT procedure are i n the results section. XR FOOT 2 VIEWS RIGHT Routine 06/19/2019 5:57 Re sults for this PM CDT procedure are i n the results section. POCT-GLUCOSE METER Routine 06/19/2019 5:01 Resul ts for this PM CDT procedure are i n the results section. POCT-GLUCOSE METER Routine 06/19/2019 12:52 Resul ts for this PM CDT procedure are i n the results section. POCT-GLUCOSE METER Routine 06/19/2019 11:50 Resul ts for this AM CDT procedure are i n the results section. TISSUE EXAM AP Routine 06/19/2019 11:18 Results for this AM CDT procedure are i n the results section. AFB CULTURE + SMEAR Routine 06/19/2019 9:50 Resu lts for this (NON-SPUTUM) AM CDT procedure are i n the results section. FUNGUS CULTURE + Routine 06/19/2019 9:50 Results for this SMEAR AM CDT procedure are i n the results section. ANAEROBIC CULTURE Routine 06/19/2019 9:50 Result s for this AM CDT procedure are i n the results section. SURGICALLY OBTAINED STAT 06/19/2019 9:50 Resu lts for this CULTURE + GRAM STAIN AM CDT procedu re are in the results section. SPIN/CONCENTRATION Routine 06/19/2019 9:50 Resul ts for this CHARGE AM CDT procedure are i n the results section. PROCEDURE W/ SPY 06/19/2019 8:30 Gangrene (HCC) ELITE FLUORESCENT AM CDT Non-healing wound VASCULAR ANGIOGRAPHY of right heel Special Needs (SPY MACHINE AND VERSA JET) AMPUTATION,FOOT 06/19/2019 8:30 AM CDT Gangrene (HCC) Non-healing wound of right h eel Special Needs (SPY MACHINE AND VERSA JET) OSTECTOMY,FOOT/ TOE 06/19/2019 8:30 AM CDT Gang alka (HCC) Non-healing wound of right h eel Special Needs (SPY MACHINE AND VERSA JET) AMPUTATION,TOE 06/19/2019 8:30 AM CDT Gangrene (HCC) Non-healing wound of right h eel Special Needs (SPY MACHINE AND VERSA JET) ECG 12-LEAD Routine 06/19/2019 7:28 AM CDT Procedure Note - Interface, External Ris In - 06/19/2019 7:35 AM CDT Ventricular Rate 67 BPM Atrial Rate 67 BPM P-R Interval 140 ms QRS Duration 88 ms Q-T Interval 446 ms QTC Calculation(Bazett) 471 ms P [place] 29 degrees R [place] -24 degrees T [place] 38 degrees Normal sinus rhythm Possible Anterior infarct , age undetermined Abnormal ECG No previous ECGs available ECG 12-LEAD Routine 06/19/2019 7:28 AM Results for this CDT procedure are i n the results section. POCT-GLUCOSE METER Routine 06/19/2019 7:09 AM Re sults for this CDT procedure are i n the results section. CBC W/PLT COUNT & AUTO Routine 06/19/2019 4:41 AM Results for this DIFFERENTIAL CDT procedure are i n the results section. VANCOMYCIN LEVEL, Routine 06/19/2019 4:41 AM Res ults for this RANDOM CDT procedure are i n the results section. CBC W/PLT COUNT & AUTO Routine 06/19/2019 4:41 AM Results for this DIFFERENTIAL CDT procedure are i n the results section. PHOSPHORUS Routine 06/19/2019 4:41 AM Results for this CDT procedure are i n the results section. MAGNESIUM Routine 06/19/2019 4:41 AM Results for this CDT procedure are i n the results section. BASIC METABOLIC PANEL Routine 06/19/2019 4:41 AM Results for this (7) CDT procedure are i n the results section. POCT-GLUCOSE METER Routine 06/18/2019 9:11 PM Re sults for this CDT procedure are i n the results section. POCT-GLUCOSE METER Routine 06/18/2019 5:11 PM Re sults for this CDT procedure are i n the results section. POCT-GLUCOSE METER Routine 06/18/2019 11:50 AM Re sults for this CDT procedure are i n the results section. POCT-GLUCOSE METER Routine 06/18/2019 10:22 AM Re sults for this CDT procedure are i n the results section. HEMODIALYSIS INPATIENT Routine 06/18/2019 7:07 AM CDT CBC W/PLT COUNT & AUTO Routine 06/18/2019 3:48 AM Results for this DIFFERENTIAL CDT procedure are i n the results section. VANCOMYCIN LEVEL, Timed 06/18/2019 3:48 AM Res ults for this TROUGH CDT procedure are i n the results section. CBC W/PLT COUNT & AUTO Routine 06/18/2019 3:48 AM Results for this DIFFERENTIAL CDT procedure are i n the results section. PHOSPHORUS Routine 06/18/2019 3:48 AM Results for this CDT procedure are i n the results section. MAGNESIUM Routine 06/18/2019 3:48 AM Results for this CDT procedure are i n the results section. BASIC METABOLIC PANEL Routine 06/18/2019 3:48 AM Results for this (7) CDT procedure are i n the results section. POCT-GLUCOSE METER Routine 06/17/2019 8:46 PM Re sults for this CDT procedure are i n the results section. POCT-GLUCOSE METER Routine 06/17/2019 5:16 PM Re sults for this CDT procedure are i n the results section. POCT-GLUCOSE METER Routine 06/17/2019 12:23 PM Re sults for this CDT procedure are i n the results section. POCT-GLUCOSE METER Routine 06/17/2019 8:39 AM Re sults for this CDT procedure are i n the results section. CBC W/PLT COUNT & AUTO Routine 06/17/2019 4:51 AM Results for this DIFFERENTIAL CDT procedure are i n the results section. CBC W/PLT COUNT & AUTO Routine 06/17/2019 4:51 AM Results for this DIFFERENTIAL CDT procedure are i n the results section. PHOSPHORUS Routine 06/17/2019 4:51 AM Results for this CDT procedure are i n the results section. MAGNESIUM Routine 06/17/2019 4:51 AM Results for this CDT procedure are i n the results section. BASIC METABOLIC PANEL Routine 06/17/2019 4:51 AM Results for this (7) CDT procedure are i n the results section. POCT-GLUCOSE METER Routine 06/16/2019 9:25 PM Re sults for this CDT procedure are i n the results section. TRANSFUSION SERVICE 06/16/2019 5:50 PM REPORT - SCAN CDT POCT-GLUCOSE METER Routine 06/16/2019 4:33 PM Re sults for this CDT procedure are i n the results section. POCT-GLUCOSE METER Routine 06/16/2019 11:50 AM Re sults for this CDT procedure are i n the results section. POCT-GLUCOSE METER Routine 06/16/2019 8:06 AM Re sults for this CDT procedure are i n the results section. (CELLAVISION MANUAL Routine 06/16/2019 4:49 AM R esults for this DIFF) CDT procedure are i n the results section. CBC W/PLT COUNT & AUTO Routine 06/16/2019 4:49 AM Results for this DIFFERENTIAL CDT procedure are i n the results section. VANCOMYCIN LEVEL, Routine 06/16/2019 4:49 AM Res ults for this RANDOM CDT procedure are i n the results section. CBC W/PLT COUNT & AUTO Routine 06/16/2019 4:49 AM Results for this DIFFERENTIAL CDT procedure are i n the results section. PHOSPHORUS Routine 06/16/2019 4:49 AM Results for this CDT procedure are i n the results section. MAGNESIUM Routine 06/16/2019 4:49 AM Results for this CDT procedure are i n the results section. BASIC METABOLIC PANEL Routine 06/16/2019 4:49 AM Results for this (7) CDT procedure are i n the results section. PERIPHERAL VASCULAR 06/15/2019 9:11 PM REPORT - SCAN CDT POCT-GLUCOSE METER Routine 06/15/2019 9:07 PM Re sults for this CDT procedure are i n the results section. POCT-GLUCOSE METER Routine 06/15/2019 5:11 PM Re sults for this CDT procedure are i n the results section. POCT-GLUCOSE METER Routine 06/15/2019 1:57 PM Re sults for this CDT procedure are i n the results section. POCT-ACT Routine 06/15/2019 12:21 PM Results for this CDT procedure are i n the results section. PERIPHERAL ANGIOS / 06/15/2019 10:27 AM PAD (periphera l AORTOGRAM CDT artery disease) (HCC) Case Notes 1014 ABORH, MANUAL STAT 06/15/2019 9:53 AM CDT Res ults for this procedure are i n the results section . HEMODIALYSIS INPATIENT Routine 06/15/2019 7:34 AM CDT CBC W/PLT COUNT & AUTO Routine 06/15/2019 4:07 AM CDT Results for this DIFFERENTIAL procedure are i n the results section . TYPE AND SCREEN, AUTOMATED Routine 06/15/2019 4:07 AM CDT Results for this procedure are i n the results section . HEPATITIS B SURFACE ANTIGEN Routine 06/15/2019 4:07 AM CDT Results for this procedure are i n the results section . CBC W/PLT COUNT & AUTO Routine 06/15/2019 4:07 AM CDT Results for this DIFFERENTIAL procedure are i n the results section . PHOSPHORUS Routine 06/15/2019 4:07 AM CDT Resu lts for this procedure are i n the results section . MAGNESIUM Routine 06/15/2019 4:07 AM CDT Resu lts for this procedure are i n the results section . BASIC METABOLIC PANEL (7) Routine 06/15/2019 4:07 AM CDT Results for this procedure are i n the results section . POCT-GLUCOSE METER Routine 06/14/2019 10:19 PM CDT Results for this procedure are i n the results section . POCT-GLUCOSE METER Routine 06/14/2019 9:18 PM CDT Results for this procedure are i n the results section . POCT-GLUCOSE METER Routine 06/14/2019 4:41 PM CDT Results for this procedure are i n the results section . CBC W/PLT COUNT & AUTO Routine 06/14/2019 3:12 PM CDT Results for this DIFFERENTIAL procedure are i n the results section . CBC W/PLT COUNT & AUTO Routine 06/14/2019 3:12 PM CDT Results for this DIFFERENTIAL procedure are i n the results section . PHOSPHORUS Routine 06/14/2019 3:12 PM CDT Resu lts for this procedure are i n the results section . MAGNESIUM Routine 06/14/2019 3:12 PM CDT Resu lts for this procedure are i n the results section . BASIC METABOLIC PANEL (7) Routine 06/14/2019 3:12 PM CDT Results for this procedure are i n the results section . XR FOOT RIGHT 3 VIEW Routine 06/14/2019 1:57 PM CDT Results for this procedure are i n the results section . ARTERIAL DOPPLER LEG, RIGHT Routine 06/14/2019 12:36 PM CDT Results for this procedure are i n the results section . POCT-GLUCOSE METER Routine 06/14/2019 12:06 PM CDT Results for this procedure are i n the results section . PV ARTERIAL ANDREA UNILATERAL Routine 06/14/2019 10:39 AM CDT Results for this procedure are i n the results section . POCT-GLUCOSE METER Routine 06/14/2019 9:16 AM CDT Results for this procedure are i n the results section . after 09/02/2018 Results RHYTHM STRIP - SCAN (07/04/2019 12:40 PM CDT)Only the most recent of2 results within the time period is included. Narrative Performed At This result has an attachment that is no t available. TRANSFUSION SERVICE REPORT - SCAN (06/29/2019 6:00 PM CDT)Only the most recent of3 resultswithin the time period is included. Narrative Performed At This result has an attachment that is no t available. EKG-SCANNED (06/29/2019 9:01 AM CDT) Narrative Performed At This result has an attachment that is no t available. CARDIAC CATH REPORT - SCAN (06/29/2019 9:01 AM CDT) Narrative Performed At This result has an attachment that is no t available. Prepare Leuko-Red RBC (06/28/2019 11:54 PM CDT) CROSSMATCH COMPATIBLE SAFETRACE TX Unit ABO O Pos SAFETRACE TX UNIT NUMBER [id number] SAFETRACE TX Status TX_TIMEINCHART SAFETRACE TX Blood Bank Product RED BLOOD CELLS SAFETRACE TX PRODUCT CODE [id number] SAFETRACE TX Specimen Other Performing Organization Address City/[facility] Cent[facility] Phone Number SAFETRACE TX POC-Glucose meter (06/27/2019 12:06 PM CDT)Only the most recent of59 results within the time period is included. POC-Glucose Meter 159 (H)Comment: : TESTED 70 - 110 mg/dL [facility] AT [address], [address]: Wheat Shipper/Jig Builder ID = [id number] for BLESSING PARTIDA Specimen Blood Performing Organization Address City/[facility]/Zipcode Phone Number [facility] [address] [place] [address] CENTER HEMODIALYSIS INPATIENT (06/27/2019 11:56 AM CDT) Narrative Performed At Izaiah Brown RN 06/27/2019 11 :57 AM HD x 3.5 hrs per pt requested. UF net re moved 2.5L. 1 unit prbc transfused. Tolerated treatment well. No t in distress. Seen by Dr. Stevens and Dr. Hurst during HD and u pdated on patient's condition and requests. Report given to primary RN Gloria. Lab Results Component Value Date WBC 11.2 (H) 06/27/2019 HGB 7.0 (L) 06/27/2019 HCT 23.5 (L) 06/27/2019 MCV 93.6 (H) 06/27/2019 PLT 393 06/27/2019 Lab Results Component Value Date GLUCOSE 168 (H) 06/27/2019 CALCIUM 7.7 (L) 06/27/2019 NA 132 (L) 06/27/2019 K 4.4 06/27/2019 CO2 28 06/27/2019 CL 94 (L) 06/27/2019 BUN 48 (H) 06/27/2019 CREATININE 9.99 (H) 06/27/2019 Lab Results Component Value Date HEPBSAG Nonreactive 06/15/2019 ] No results found for: HEPAIGM, HEPBIGM, HEPBCAB, HBEAG, HEPCAB No results found for: HIV1X2 Coag Profile: No results found for: PROT TROY, INR, PTT Transfuse Leuko-Red RBC (06/27/2019 10:49 AM CDT)Only the most recent of2 resultswithin the time period is included.Type and screen, automated (06/27/2019 8:45 AM CDT)Only the most recent of2 resultswithin the time period is included. ABO/RH AUTOMATED (BEAKER) O POSITIVE [facility] Ab Scrn NEGATIVE COUNT INCLUDES THE [facility] Specimen Blood Performing Organization Address City/State/Zipcode Phone Number [facility] [address] [place] [address] CBC with platelet count + automated diff (06/27/2019 3:39 AM CDT)Only the most recent of14 resultswithin the time period is included. WBC 11.2 (H) 3.5 - 10.5 K/L [facility] RBC 2.51 (L) 4.63 - 6.08 M/L [facility] Hemoglobin 7.0 (L) 13.7 - 17.5 GM/DL [facility] Hematocrit 23.5 (L) 40.1 - 51.0 % [facility] MCV 93.6 (H) 79.0 - 92.[address] [facility] MCH 27.9 25.7 - 32.2 [address] [facility] MCHC 29.8 (L) 32.3 - 36.5 GM/DL [facility] RDW 14.2 11.6 - 14.4 % [facility] Platelets 393 150 - 450 K/CU MM [facility] MPV 9.6 9.4 - 12.[address] [facility] nRBC 0 0 - 0 /100 [address]BC [facility] % Neutros 70 % [facility] % Lymphs 11 % [facility] % Monos 13 % [facility] % Eos 3 % [facility] % Baso 1 % [facility] # Neutros 7.84 (H) 1.78 - 5.38 K/L [facility] # Lymphs 1.24 (L) 1.32 - 3.57 K/L [facility] # Monos 1.49 (H) 0.30 - 0.82 K/L [facility] # Eos 0.35 0.04 - 0.54 K/L [facility] # Baso 0.12 (H) 0.01 - 0.08 K/L [facility] Immature Granulocytes-Relative 1 0 - 1 % [facility] Specimen Blood Performing Organization Address City/[facility]/Zipcode Phone Number [address] [address] CENTER Phosphorus (06/27/2019 3:39 AM CDT)Only the most recent of14 resultswithin the time period is included. Phosphorus 6.1 (H) 2.3 - 4.7 mg/dL [facility] Specimen Blood Narrative Performed At Wheat Shipper SAVANNA Interiano [facility] Performing Organization Address City/[facility]/Zipcode Phone Number [address] [address] CENTER Magnesium (06/27/2019 3:39 AM CDT)Only the most recent of14 resultswithin the time period is included. Magnesium 2.5 1.6 - 2.6 mg/dL [facility] Specimen Blood Narrative Performed At Wheat Shipper SAVANNA Interiano [facility] Performing Organization Address City/[facility] Centercode Phone Number [address] [address] CENTER Basic metabolic panel (06/27/2019 3:39 AM CDT)Only the most recent of14 results within the time period is included. Sodium 132 (L) 136 - 145 meq/L [facility] Potassium 4.4 3.5 - 5.1 meq/L [facility] Chloride 94 (L) 98 - 107 meq/L [facility] CO2 28 22 - 29 meq/L [facility] BUN 48 (H) 7 - 21 mg/dL [facility] Creatinine 9.99 (H) 0.57 - 1.25 mg/dL [facility] Glucose 168 (H) 70 - 105 mg/dL [facility] Calcium 7.7 (L) 8.4 - 10.2 mg/dL [facility] EGFR 5Comment: ESTIMATED GFR IS mL/min/1.73 sq m [facility] NOT ACCURATE CREATININE ME DICAL CENTER CLEARANCE IN PREDICTING GLOMERULAR FILTRATION RATE. ESTIMATED GFR IS NOT APPLICABLE FOR DIALYSIS PATIENTS. Specimen Blood Narrative Performed At Wheat Shipper ID - JAQUELINE M [facility] Performing Organization Address City/State/Zipcode Phone Number [facility] [address] [place] [address] CENTER HEMODIALYSIS INPATIENT (06/25/2019 8:18 AM CDT) Narrative Performed At Melody Meza RN 06/25/2019 11:44 AM Tolerated HD over 3.5 hours via left upp er arm AVF +bruit + thrill noted.. NET removal was 2.5 liter s. Pt tolerated tx well. Lab Results Component Value Date WBC 13.1 (H) 06/25/2019 HGB 7.9 (L) 06/25/2019 HCT 25.6 (L) 06/25/2019 MCV 94.8 (H) 06/25/2019 PLT 418 06/25/2019 Lab Results Component Value Date GLUCOSE 130 (H) 06/25/2019 CALCIUM 7.7 (L) 06/25/2019 NA 130 (L) 06/25/2019 K 5.0 06/25/2019 CO2 24 06/25/2019 CL 94 (L) 06/25/2019 BUN 54 (H) 06/25/2019 CREATININE 11.58 (H) 06/25/2019 Lab Results Component Value Date HEPBSAG Nonreactive 06/15/2019 ] No results found for: HEPAIGM, HEPBIGM, HEPBCAB, HBEAG, HEPCAB No results found for: HIV1X2 Coag Profile: No results found for: PROT TROY, INR, PTT Vancomycin level, random (06/23/2019 4:58 AM CDT)Only the most recent of5 resultswithin the time period is included. Vancomycin Rm 15.8 ug/mL [facility] Specimen Blood Narrative Performed At Reference Range: No Normals [facility] Wheat Shipper ID - LM Performing Organization Address City/State/Zipcode Phone Number [facility] [address] [place] [address] CENTER HEMODIALYSIS INPATIENT (06/22/2019 12:02 PM CDT) Narrative Performed At Izaiah Brown RN 06/22/2019 12 :03 PM HD x 3.5 hrs. UF net removed 2.5L. Kirit ated tx well. No complaints, not in distress. Report give n to primary SUNITA Martinez. Lab Results Component Value Date WBC 15.3 (H) 06/22/2019 HGB 7.8 (L) 06/22/2019 HCT 25.9 (L) 06/22/2019 MCV 94.9 (H) 06/22/2019 PLT 414 06/22/2019 Lab Results Component Value Date GLUCOSE 133 (H) 06/22/2019 CALCIUM 7.9 (L) 06/22/2019 NA 132 (L) 06/22/2019 K 4.5 06/22/2019 CO2 25 06/22/2019 CL 94 (L) 06/22/2019 BUN 56 (H) 06/22/2019 CREATININE 9.79 (H) 06/22/2019 Lab Results Component Value Date HEPBSAG Nonreactive 06/15/2019 ] No results found for: HEPAIGM, HEPBIGM, HEPBCAB, HBEAG, HEPCAB No results found for: HIV1X2 Coag Profile: No results found for: PROT TROY, INR, PTT XR foot 2 views right (06/19/2019 5:57 PM CDT) Specimen Narrative Performed At FINAL REPORT [facility] CLINICAL HISTORY: Postop transmetatarsal amputation COMPARISON: 06/14/2019 FINDINGS: 2 views of the right foot are submitted. Bandage artifact overlies the region of interest. The patient has undergone interval trans metatarsal amputation of all 5 rays at the level of the mid metatarsa ls. There is an expected postoperative appea sofia. Vascular calcifications are present in t he lower leg, ankle and foot. A small plantar calcaneal spur is presen t. There is no radiopaque foreign body. Signed: Randell Alex MD Report Verified Date/Time:06/19/2019 22:40:02 Procedure Note Interface, External Ris In - 06/19/2019 10:42 PM CDT FINAL REPORT CLINICAL HISTORY: Postop transmetatarsal amputation COMPARISON: 06/14/2019 FINDINGS: 2 views of the right foot are submitted. Bandage artifact overlies the region of interest. The patient has undergone interval trans metatarsal amputation of all 5 rays at the level of the mid metatarsa ls. There is an expected postoperative appea sofia. Vascular calcifications are present in t he lower leg, ankle and foot. A small plantar calcaneal spur is presen t. There is no radiopaque foreign body. Signed: Randell Alex MD Report Verified Date/Time: 06/19/2019 2 2:40:02 Performing Organization Address City/State/Zipcode Phone Number RIS Tissue Exam (06/19/2019 11:18 AM CDT) Case Report Surgical Pathology Report Case: [id number] [facility] Authorizing Provider:Star Holt [facility]lected: 06/19/2019 11:18 AM [facility] Ordering Location: [facility] PERIOPERATIVE Received:06/19/2019 11:51 AM SERVICES Pathologist: Jonathan Hutchison MD Specimen:Foot, Right , right forefoot DIAGNOSIS PART A RIGHT FOOT, TRANSMETATARSAL AMPUTATION: [facility][email or web address] [facility] GANGRENOUS NECROSIS OF SKIN AND SOFT TISSUE. [facility] UNDERLYING ACUTE AND CHRONIC OSTEOMYELITIS. STATUS POST PRIOR AMPUTATION. BONE AND SOFT TISSUE MARGINS ARE INVOLVED. Signing Pathologist Direct Phone Line: [phone] CPT Code(s) 75853, [address] [facility] [address] [facility] CLINICAL HISTORY Preop diagnosis: Gangrene, [facility] nonhealing wound of right [facility] heel SPECIMEN SOURCE A. Right foot [facility] DES[facility] Received in formalin labeled with the patient's name, accession number and "right foot" is a 9.5 x 9.0 x 3.0 cm transmetatarsal amputation displaying digits 1, 4 and 5. The skin is gardner-pink and displays [facility] a 5.0 x 4.5 cm green-black ulcerated lesion at the previous site of amputation that is involving the entire 4th digit, and is abutting the skin and soft tissue margin (inked blue). The underlying affec [facility] doris bone is red-pink, trabec ulated and firm. All three digits display gardner- yellow thickened nails. Art Framing Manager sections are submitted as follows: Section code: A1, skin and soft tissue margin en face A2, previous site of amputation A3, skin lesion and underlying affected bone fol lowing decalcification A4-A5, bone margin en face following decalcifica tion PA/pl MICROSCOPIC DESCRIPTION PERFORMED. [facility] Gross assessment was [facility] performed at [place], Department of [facility] Pathology, [address] [place] [address], Technical component was [facility] performed at [place], Department of [facility] Pathology, [address] [place] [address], Professional component [facility] was performed at [place], Department of [facility] Pathology, [address] [place] [address], Specimen Tissue Performing Organization Address City/[facility] Centercode Phone Number [address] [phone] [facility] culture + smear (non-sputum) (06/19/2019 9:50 AM CDT) Result No acid-fast bacilli isolated in [facility] 42 days [facility] Smear No acid fast bacilli seen [facility] Specimen Wound Performing Organization Address City/State/Zipcode Phone Number [facility] [address] [place] [address] [facility] Anaerobic culture (06/19/2019 9:50 AM CDT) Result 4+ Prevotella bivia (A) [facility] Specimen Wound Performing Organization Address [facility] Centercode Phone Number [facility] [address] [place] [address] [facility] Surgically obtained culture + gram stain (06/19/2019 9:50 AM CDT) Result No growth [facility] Gram Stain Result 3+ WBCs [facility] Gram Stain Result No organisms seen [facility] Specimen Wound Performing Organization Address [facility] Centercode Phone Number [address] [address] [facility] Fungus culture + smear (06/19/2019 9:50 AM CDT) Result No fungus isolated in 28 days [facility] Fungus Smear No fungal elements seen [facility] Specimen Wound Performing Organization Address [facility] Centercode Phone Number [address] [address] [facility] SPIN/CONCENTRATION CHARGE (06/19/2019 9:50 AM CDT) Concentration charged Done [facility] Specimen Wound Performing Organization Address [facility]/Zipcode Phone Number [place] [phone] [place] [address] [facility] ECG 12 lead (06/19/2019 7:28 AM CDT) Specimen Narrative Performed At Ventricular Rate 67 BPM GE MUSE Atrial Rate 67 BPM P-R Interval 140 ms QRS Duration 88 ms Q-T Interval 446 ms QTC Calculation(Bazett) 471 ms P [place] 29 degrees R [place] -24 degrees T [place] 38 degrees Normal sinus rhythm Poor R wave progression Cannot rule out Possible Anter ior infarct , age undetermined Prolonged QT Abnormal ECG No previous ECGs available Confirmed by Stella GOMEZ, [place] ([id number]) on 06/19/2019 6: 07:01 PM Procedure Note Interface, External Ris In - 06/19/2019 6:07 PM CDT Ventricular Rate 67 BPM Atrial Rate 67 BPM P-R Interval 140 ms QRS Duration 88 ms Q-T Interval 446 ms QTC Calculation(Bazett) 471 ms P [place] 29 degrees R [place] -24 degrees T [place] 38 degrees Normal sinus rhythm Poor R wave progression Cannot rule out Possible Anterior infarct , age undetermined Prolonged QT Abnormal ECG No previous ECGs available Confirmed by Stella GOMEZ, [place] ([id number]) o n 06/19/2019 6:07:01 PM Performing Organization Address City/State/Zipcode Phone Number [facility] Vancomycin level, trough (06/18/2019 3:48 AM CDT) Vancomycin Tr 25.9 (H) 10.0 - 20.0 ug/mL [facility] Specimen Blood Narrative Performed At Wheat Shipper SAVANNA - JAQUELINE Interiano [facility] Performing Organization Address City/State/Zipcode Phone Number [facility] [address] [place] [address] CENTER Manual Differential (06/16/2019 4:49 AM CDT) % Neutros 78 % [facility] % Lymphs 4 % [facility] % Monos 10 % [facility] % Baso 1 % [facility] % Metamyelo 1 (H) 0 - 0 % [facility] % Bands 6 0 - 10 % [facility] # Neutros 12.95 (H) 1.78 - 5.38 K/ul [facility] # Lymphs 0.66 (L) 1.32 - 3.57 K/ul [facility] # Monos 1.66 (H) 0.30 - 0.82 K/uL [facility] # Baso 0.17 (H) 0.01 - 0.08 K/uL [facility] # Metamyelo 0.17 (H) 0.00 - 0.00 K/uL [facility] # Bands 1.00 (H) 0.00 - 0.80 K/uL [facility] Total Counted 100 [facility] WBC Morphology Normal [facility] Platelet Morphology Normal [facility] Polychromasia 1+ few [facility] Artifact Present [facility] Platelet Conc Adequate [facility] Specimen Blood Narrative Performed At Wheat Shipper ID - Roseanne Overholt [facility] User comments: Slide comments: Performing Organization Address City/State/Zipcode Phone Number [address] [address] CENTER PERIPHERAL VASCULAR REPORT - SCAN (06/15/2019 9:11 PM CDT) Narrative Performed At This result has an attachment that is no t available. POC ACTIVATED CLOTTING TIME (06/15/2019 12:21 PM CDT) Activated Clotting Time 241Comment: : 74-137 sec [facility] seconds, Baseline: TESTED [facility] AT [address], [address]: Wheat Shipper/Jig Builder ID = [id number] for CRYSTAL NICHOLE Specimen Blood Performing Organization Address City/State/Zipcode Phone Number [address] [phone] CENTER ABORH, manual (06/15/2019 9:53 AM CDT) ABO Grouping O [facility] Rh Factor POS [facility] Specimen Blood Performing Organization Address City/State/Zipcode Phone Number [facility] [address] [place] [address] Hepatitis B surface antigen (06/15/2019 4:07 AM CDT) HBsAg Screen Nonreactive Nonreactive [facility] Specimen Blood Narrative Performed At Wheat Shipper ID - LM [facility] Performing Organization Address City/State/Zipcode Phone Number [facility] [address] [place] [address] CENTER XR foot 3 views right (06/14/2019 1:57 PM CDT) Specimen Narrative Performed At FINAL REPORT [facility] Right foot, three views History: Right foot gangrene Comparison: None Findings: The second and third digits have been am putated at the level of the respective metatarsal-phalangeal joints. Moderate vascular calcifications. Plantar and dorsal calca jeff spurs are noted. No additional significant bone or joint spa ce abnormality. Impression: No acute findings in the right foot. Fina or second and third digit amputations. Signed: Sonny Perez MD Report Verified Date/Time:06/14/2019 15:36:18 Reading Location: [address] Ortho Con sult Reading Room Procedure Note Interface, External Ris In - 06/14/2019 3:38 PM CDT FINAL REPORT Right foot, three views History: Right foot gangrene Comparison: None Findings: The second and third digits have been am putated at the level of the respective metatarsal-phalangeal joints. Moderate vascular calcifications. Plantar and dorsal calca jeff spurs are noted. No additional significant bone or joint spa ce abnormality. Impression: No acute findings in the right foot. Fina or second and third digit amputations. Signed: Sonny Perez MD Report Verified Date/Time: 06/14/2019 1 5:36:18 Reading Location: [facility] [id number] Ortho Con sult Reading Room Performing Organization Address City/State/Zipcode Phone Number GE [facility] Arterial Doppler Leg, Right (06/14/2019 12:36 PM CDT) Ejection Fraction [facility] Specimen Impressions Performed At Right Impression [facility] 1. The common femoral, profunda femoral , superficial femoral and popliteal arteries are patent with calcified plaque and triphasic doppler throughout. 2. The peroneal artery was not visualize d. 3. There is no flow visualized in the proximal-mid posterior tibial artery. 4. The distal posterior tibial artery is patent with a low velocity of 12/0 cm/sec and monophasic doppler waveforms throughout. 5. The anterior tibial artery is patent with calcified plaque and monophasic doppler waveforms throughout. Conclusions Summary Arterial Doppler analysis were performed on the right lower extremity. The arteries were adequately visualized except as stated above. The common femoral, profunda femoral , superficial femoral and popliteal arteries are patent with calcified plaque and triphasic doppler throughout. The peroneal artery was not visualized. There was no flow visualized in the proximal-mid posterior tibial artery. The distal posterior tibial artery was patent with a low velocity of 12/0 cm/sec and monophasic doppler waveforms throughout. The anterior tibial artery was patent with calcified plaque and monophasic doppler waveforms throughout. Signature Velocities are measured in cm/s ; Diameters are measured in cm LE Duplex Measurements Right Left + + + + + + + + + + !Location ! !PSV !EDV !Waveform! !PSV !EDV !Waveform ! + + + + + + + + + + !Mid Common Femoral ! !116 !10.2! ! + + + + + + !Prox PFA ! !88!13.4 ! ! + + + + + + !Prox SFA ! !89.6!14.9 ! ! + + + + + + !Mid SFA ! !88!8.64 ! ! + + + + + + !Dist SFA ! !91.1!11.8 ! ! + + + + + + !Prox Popliteal ! !83.3!14.1 ! ! + + + + + + !Mid Popliteal ! !69!10 ! ! + + + + + + !Dist Popliteal ! !79.7!10.6 ! ! + + + + + + !Prox TAX REVENUE OFFICER ! !0 !! ! + + + + + + !Mid TAX REVENUE OFFICER ! !0 !! ! + + + + + + !Dist TAX REVENUE OFFICER ! !12.2! ! ! + + + + + + !Prox MARTY ! !17.3! ! ! + + + + + + !Mid MARTY ! !30.6!10.4 ! ! + + + + + + !Dist MARTY ! !34.6!9.63 ! ! + + + + + + Narrative Performed At PV [facility] - Lower Extremity Arterial Duplex [facility] ECHO HEARTLAB [facility] Demographics Patient BARBARA Lamas Date of Study 06/14[birth year]2019 58 Visit [id number] Male of 1960 Referring Pepper Gar Room Number [id number] Physician Manager Of Manufacturing Matthew michel, T Physician Procedure Type of Study: Extremities Arteries: Lower Extremities Arterial Duplex, ARTERIAL DOPPLER LEG, RIGHT. Indications for Study:Gangrene. Patient Status:Routine. Study Location:Vascular Lab. Technical Quality:Adequate visualization . Risk Factors History of Disease +---------+----+ + !Diagnosis!Date!Comments ! +---------+----+ + !Other!!Amputation of right 2nd and 3rd digits, DM, Know PVD, ! ! !!Gangrene ! +---------+----+ + Procedure Note Interface, External Ris In - 06/15/2019 10:44 AM CDT [facility] - Lower Extremity Arterial Duplex Demographics Patient Name BARBARA GRIJALVA Michael e of Study 06/14/2019 Age 58 Visit Number [id number] Gen julia Male Accession Number [id number] Michael e of 1960 Referring Pepper Campo Number [id number] Physician Manager Of Manufacturing Matthew Schultz [facility] Celi Morgan, T Tanner cueva MD Procedure Type of Study: Extremities Arteries: Lower Extremities Arterial Duplex, ARTERIAL DOPPLER LEG, RIGHT. Indications for Study:Gangrene. Patient Status:Routine. Study Location:Vascular Lab. Technical Quality:Adequate visualization . Risk Factors History of Disease +---------+----+ + !Diagnosis!Date!Comments ! +---------+----+ + !Other ! !Amputation of right 2nd and 3rd digits, DM, Know PVD, ! ! ! !Gangrene ! +---------+----+ + Impressions Right Impression 1. The common femoral, profunda femoral , superficial femoral and popliteal arteries are patent with calcified plaqu e and triphasic doppler throughout. 2. The peroneal artery was not visualize d. 3. There is no flow visualized in the pr oximal-mid posterior tibial artery. 4. The distal posterior tibial artery is patent with a low velocity of 12/0 cm/sec and monophasic doppler waveforms throughout. 5. The anterior tibial artery is patent with calcified plaque and monophasic doppler waveforms throughout. Conclusions Summary Arterial Doppler analysis were performe d on the right lower extremity. The arteries were adequately visualized exc ept as stated above. The common femoral, profunda femoral , superficial femoral and popliteal arteries are patent with calcified plaque and tripha sic doppler throughout. The peroneal artery was not visualized. There was no flow visualized in the proximal-mid posterior tibial arter y. The distal posterior tibial artery was patent with a low velocity o f 12/0 cm/sec and monophasic doppler waveforms throughout. The anter ior tibial artery was patent with calcified plaque and monophasic doppler waveforms throughout. Signature Velocities are measured in cm/s ; Diamet ers are measured in cm LE Duplex Measurements Right Left + + + + + + + + + + !Location ! !PSV !EDV !Waveform ! !PSV !EDV !Waveform ! + + + + + + + + + + !Mid Common Femoral ! !116 !10.2 ! ! + + + + + + !Prox PFA ! !88 !13.4 ! ! + + + + + + !Prox SFA ! !89.6 !14.9 ! ! + + + + + + !Mid SFA ! !88 !8.64 ! ! + + + + + + !Dist SFA ! !91.1 !11.8 ! ! + + + + + + !Prox Popliteal ! !83.3 !14.1 ! ! + + + + + + !Mid Popliteal ! !69 !10 ! ! + + + + + + !Dist Popliteal ! !79.7 !10.6 ! ! + + + + + + !Prox TAX REVENUE OFFICER ! !0 ! ! ! + + + + + + !Mid TAX REVENUE OFFICER ! !0 ! ! ! + + + + + + !Dist TAX REVENUE OFFICER ! !12.2 ! ! ! + + + + + + !Prox MARTY ! !17.3 ! ! ! + + + + + + !Mid MARTY ! !30.6 !10.4 ! ! + + + + + + !Dist MARTY ! !34.6 !9.63 ! ! + + + + + + Performing Organization Address City/State/Zipcode Phone Number [facility] S.N. Safe&SoftwareG[facility] [place] ANDREA's With PT and DP Doppler Unilateral (06/14/2019 10:39 AM CDT) Ejection Fraction [facility] TLAB ALVERTOJohnshout Brothers PlatformANDERSON CPACS Specimen Impressions Performed At Right Impression [facility] 1. The posterior tibial and dorsalis pedis arteries are patent with normal biphasic/ monophasic doppler waveforms t hroughout. 2. The DP and PT ANDREA's were within the noncompressible range. 3. Thee is no flow to the 1st digit by PPG waveforms. 4. The 2nd and 3rd digits are amputated. 5. The 4th and 5th digits were not obtained due to wound and bandage. 6. The TBI was no obtained due to absent flow by PPG waveforms. Left Impression 1. The posterior tibial and dorsalis pedis arteries are patent with biphasic doppler waveforms. 2. The DP and PT ANDREA's were within the noncompressible range. 3. The digits were amputated. 4. The TBI was not obtained due to amput ation. Conclusions Summary Arterial pressures were performed bilaterally. Doppler waveforms were biphasic/monophasic bilaterally. The right and left ANDREA's were within within the noncompressible range. On the right, Thee was no flow to the 1st digit by PPG waveforms. The 2nd and 3rd digits were amputated. The 4th and 5th digits were not obtained due to wound and bandage. The TBI was no obtained due to absent flow by PPG waveforms. The left digits were amputated. Signature Velocities are measured in cm/s ; Diameters are measured in cm Narrative Performed At LAB - Lower Extremity Arterial Proced ure [facility] Demographics Patient NameMARENEE RIVERARGE Date of Study 06/14/2019 58 Visit [id number] Male of 1960 Referring Pepper Gar Room Number [id number] Physician Manager Of Manufacturing Matthew michel, T Physician LOGAN Procedure Type of Study: Extremities Arteries: Lower Extremity Arterial Procedure, ARTERIAL (ANDREA'S W/DOPPLER) ONLY. Indications for Study:Gangrene. Patient Status:Routine. Study Location:Portable. Technical Quality:Adequate visualization . Risk Factors History of Disease +---------+----+ + !Diagnosis!Date!Comments ! +---------+----+ + !Other!!Amputation of right 2nd and 3rd digits, DM, Know PVD, ! ! !!Gangrene ! +---------+----+ + Procedure Note Interface, External Ris In - 06/15/2019 10:44 AM CDT [facility] LAB - Lower Extremity Arterial Procedure Demographics Patient Name BARBARA GRIJALVA Michael e of Study 06/14/2019 Age 58 Visit Number [id number] Gen julia Male Accession Number [id number] Michael e of 1960 Referring Pepper Gar Jahaira m Number [id number] Physician Manager Of Manufacturing Matthew Saucedo Int erpreting Celi Morgan, T Tanner cueva MD Procedure Type of Study: Extremities Arteries: Lower Extremity A rterial Procedure, ARTERIAL (ANDREA'S W/DOPPLER) ONLY. Indications for Study:Gangrene. Patient Status:Routine. Study Location:Portable. Technical Quality:Adequate visualization . Risk Factors History of Disease +---------+----+ + !Diagnosis!Date!Comments ! +---------+----+ + !Other ! !Amputation of right 2nd and 3rd digits, DM, Know PVD, ! ! ! !Gangrene ! +---------+----+ + Impressions Right Impression 1. The posterior tibial and dorsalis ped is arteries are patent with normal biphasic/ monophasic doppler waveforms t hroughout. 2. The DP and PT ANDREA's were within the n oncompressible range. 3. Thee is no flow to the 1st digit by P PG waveforms. 4. The 2nd and 3rd digits are amputated. 5. The 4th and 5th digits were not obtai laura due to wound and bandage. 6. The TBI was no obtained due to absent flow by PPG waveforms. Left Impression 1. The posterior tibial and dorsalis ped is arteries are patent with biphasic doppler waveforms. 2. The DP and PT ANDREA's were within the n oncompressible range. 3. The digits were amputated. 4. The TBI was not obtained due to amput ation. Conclusions Summary Arterial pressures were performed bilat erally. Doppler waveforms were biphasic/monophasic bilaterally. The ri ght and left ANDREA's were within within the noncompressible range. On e right, Thee was no flow to the 1st digit by PPG waveforms. The 2nd and 3rd digits were amputated. The 4th and 5th digits were not obtained due to wound and bandage. The TBI was no obtained due to absent flow by PPG wave forms. The left digits were amputated. Signature Velocities are measured in cm/s ; Diamet ers are measured in cm Performing Organization Address City/State/[facility] Phone Number [facility] MKCKESSON CPACS after 09/02/2018 Insurance Payer Benefit Plan / Group Subscriber ID Type Phone A [employer] ALL xxxxxxxxx Maps Contracted Advance Directives For more information, please contact:[facility] HospitalCHARGED.[address] [phone] Code Status Date Activated Date Inactivated Comments Full Code 06/14/2019 8:42 AM 06/27/2019 5:21 PM This code status was determined by: Patient
--- OUTSIDE RECORDS SUMMARY | 2019-09-03 17:04 | XMS REPORT | Summary of Care ---
:1960 Author Organization [facility] [place] [address] Care Team Providers Name Role Phone Tito Duval MD Primary Care Provider Reason for Visit Reason Comments Follow Up Post-op Follow-up Wound Check Consult, Test & Treat (Routine) Status Reason Specialty Diagnoses / Referred By Referred To Procedures Contact Contact Patient Podiatry / Procedures [employer] [facility] [employer] Star Mirza Responsible Vascular Surgery ESTABLISHED SERVICE ARE Vikas Bean, DPM OFFICE VISIT [address] [facility] [address] [address] Phone: [place], [place] [phone] Encounter Details Date Type Department Care Team Description 08/07/2019 Office Visit [facility] Star Bartholomew, Follow Up ; Post-op Medicine Vascular DPM Follow-up; Wound Check Surgery [address] [place] [address] [address] 6[address] Floor, [address] [place] [id number] [place], [place] [phone] [address] [phone] Allergies No Known Allergiesdocumented as of this encounter (statuses as of 08/20/2019) Medications Medication Sig Dispensed Refills Start Date End Date Status SENNA CO by COMBINATION 0 Activ e route. furosemide (LASIX) 40 Take 40 mg by 0 Active MG tablet mouth daily. hydrALAZINE Take 25 mg by 0 Acti ve (APRESOLINE) 25 MG mouth 3 times tablet daily. Sevelamer Carbonate Take by mouth. 0 Active 800 MG TABS amlodipine (NORVASC) Take 10 mg by 0 Active 10 MG tablet mouth daily. amoxicillin-clavulanat Take 1 Tab by 0 Active e (AUGMENTIN) 500-125 mouth 3 times MG per tablet daily. Spironolactone 25 Take by mouth. 0 Active MG/5ML SUSP carvedilol (COREG) Take 12.5 mg by 0 Active 12.5 MG tablet mouth 2 times daily (with meals). gabapentin (NEURONTIN) Take 300 mg by 0 Active 300 MG capsule mouth 3 times daily. ASPIRIN 81 OR Take by mouth. 0 Active documented as of this encounter (statuses as of 08/20/2019) Active Problems Problem Noted Date Post-operative state 07/24/2019 S/P transmetatarsal amputation of foot, right (HCCode) 07/24/2019 Type 2 diabetes mellitus with diabetic peripheral you opathy without 07/24/2019 gangrene, with long-term current use of insulin (HCCod e) Encounter for post surgical wound check 07/24/2019 PAD (peripheral artery disease) (HCCode) 07/17/2019 documented as of this encounter (statuses as of 08/20/2019) Social History Tobacco Use Types Packs/Day Years Used Date Never Smoker Smokeless Tobacco: Never Used Alcohol Use Drinks/Week oz/Week Comments Not Currently Sex Assigned at Date Recorded Not on file Job Start Date Occupation Industry Not on file Not on file Not on file Travel History Travel Start Travel End No recent travel history available. COVID-19 Exposure Response Date Recorded In the last month, have you been in contact with No / Unsure 08/07/2019 1:09 PM CDT someone who was confirmed or suspected to have Coronavirus / COVID-19? documented as of this encounter Last Filed Vital Signs Vital Sign Reading Time Taken Comments Blood Pressure 148/77 08/07/2019 1:34 PM CDT Pulse 65 08/07/2019 1:34 PM CDT Temperature - - Respiratory Rate - - Oxygen Saturation - - Inhaled Oxygen Concentration - - Weight 104.3 kg (230 lb) 08/07/2019 1:34 PM CDT Height 172.7 cm (5' 8") 08/07/2019 1:34 PM CDT Body Mass Index 34.97 08/07/2019 1:34 PM CDT documented in this encounter Patient Instructions Patient InstructionsLorraine Rudd CMA - 08/07/2019 2:41 PM CDTThank you for choosing [facility]. You may receive a survey in the mail. Please provide comments to let us know how we can improve our patient care. Patient will follow up on August at 1:30 pm with for wound care. Star Mirza DPM, FACFAS Perforator Operator Division of Vascular Surgery and Endovascular Therapy If you have any questions, please feel free to call us at: documented in this encounter Progress Notes Pattie Kimball, SIERRA - 08/07/2019 1:00 PM CDT Subjective: Dayton Grijalva is a 58 y.o. male that presents today for follow-up evaluation and management of right TMA with advancement placement flap with primary closure (06/19/19 - Herems). he admits to to being compliant with his local wound care consisting of Betadine wet to dry dressingdaily to TMA stump. He denies any additional complaints today. No results found for: HGBA1C. No new complaints. he denies any nausea, vomiting, fever, or chills. Past Medical History: Diagnosis Date Chronic kidney disease Hypertension Type 1 diabetes mellitus (HCCode) amLODIPine (NORVASC) 10 MG tablet Take 1 tablet (10 mg total) by mouth daily. 0 06/27/2019 06/26/2020 Active carvediloL (COREG) 12.5 MG tablet Take 1 tablet (12.5 mg total) by mouth 2 (two) times daily. 0 06/27/2019 06/26/2020 Active hydrALAZINE (APRESOLINE) 25 MG tablet Take 1 tablet (25 mg total) by mouth 2 (two) times daily. 0 06/27/2019 06/26/2020 Active spironolactone (ALDACTONE) 25 MG tablet Take 1 tablet (25 mg total) by mouth daily. 0 06/27/2019 06/26/2020 Active furosemide (LASIX) 40 MG tablet Take 1 tablet (40 mg total) by mouth daily. 0 06/27/2019 06/26/2020 Active gabapentin (NEURONTIN) 300 MG capsule Take 1 capsule (300 mg total) by mouth daily. 0 06/27/2019 06/26/2020 Active aspirin 81 MG chewable tablet Take 1 tablet (81 mg total) by mouth daily. 0 06/27/2019 06/26/2020 Active sevelamer (RENVELA) 800 mg tablet Take 4 tablets (3,200 mg total) by mouth 3 (three) times daily with meals. 0 06/27/2019 06/26/2020 Active senna-docusate (SENOKOT S) 8.6-50 mg per tablet Take 2 tablets by mouth nightly. 0 06/27/2019 06/26/2020 Active insulin detemir U-100 (LEVEMIR) 100 unit/mL (3 mL) InPn injection Inject 0.1 mLs (10 Units total)subcutaneously 2 (two) times daily. 0 06/27/2019 Active Gangrene of right foot 06/14/2019 Ischemia of foot 06/14/2019 CKD (chronic kidney disease) stage V requiring chronic dialysis 06/14/2019 Type 2 diabetes mellitus with diabetic peripheral angiopathy and gangrene, with long-term current use of insulin 06/14/2019 PAD (peripheral artery disease) 06/14/2019 ESRD on hemodialysis PastSurgicalHistory Past Surgical History: Procedure Laterality Date HX AMPUTATION FOOT AMPUTATION THROUGH METATARSAL 2009 Left TOE AMPUTATION Right 2nd toe 05/2019, 3rd toe 06/2019 CORONARY ARTERY BYPASS GRAFT 09/2018 PERIPHERAL ANGIOS / AORTOGRAM 06/15/2019 Bilateral Procedure: PERIPHERAL ANGIOS / AORTOGRAM; Surgeon:Clark Danielle MD; Location: [facility]; Service: General Surgery; Laterality: Bilateral; AMPUTATION,TOE 06/19/2019 Right Procedure: AMPUTATION,TOE; Surgeon: Star Mirza DPM; Location: [facility] OR; Service: Podiatry; Laterality: Right; AMPUTATION 4TH DIGIT PARTIAL, 2nd ,3rd ,4th RAY AMPUTATION RIGHT FOOT WITH POSSIBLE TRANSMETATARASAL AMPUTATION WITH SPY MACHINE,PULSE LAVAGE AND VERSA JET OSTECTOMY,FOOT/ TOE 06/19/2019 Right Procedure: OSTECTOMY,FOOT/ TOE; Surgeon: Star Mirza DPM; Location: [facility] OR; Service: Podiatry; Laterality: Right; AMPUTATION,FOOT 06/19/2019 Right Procedure: AMPUTATION,FOOT; Surgeon: Star Mirza DPM; Location: [facility] OR; Service: Podiatry; Laterality: Right; PROCEDURE W/SPY ELITE FLUORESCENT VASCULAR ANGIOGRAPHY 06/19/2019 N/A Procedure: PROCEDURE W/ SPY ELITE FLUORESCENT VASCULAR ANGIOGRAPHY; Surgeon: Star Mirza DPM; Location: [facility] OR; Service: Podiatry; Laterality: N/A; Surgical history includes right diagnostic angiogram (none previously performed with history of toe amputations without angiography), selective catherization of 3rd order vessel x 2 (peroneal and anterior tibial artery), right peroneal artery balloon angioplasty, right anterior tibial balloon angioplasty (06/15/19 - Shashi), right SPY, I&D abscess post amputation site, right TMA with advancement placement flap with primary closure (06/19/19 - Hermes). Past Surgical History: Procedure Laterality Date HX AMPUTATION Objective: BP 148/77 | Pulse 65 | Ht 5' 8" (1.727 m) | Wt 230 lb (104.3 kg) | BMI 34.97 kg/m General: Patient is alert, responsive, NAD Lower Ext: Derm: Wound site right TMA stump presents with dry, stable plantar flap and dorsal eschar and medial incision sutures intact. There is periwound hyperkeratosis in need of debridement. After debridement, pink, healthy superficial tissue noted to plantar aspect of TMA stump, as before. There is not any evidence of edema, erythema, purulence, malodor, probe to bone, tracking or tunneling noted. Thewound site is improving. Vasc: Pedal pulses are not palpable bilateral lower extremity. CFT < 3 sec bilateral. Biphasic signal noted to DP/PT/peroneal, RLE. Neuro: Protective threshold is not intact bilateral. Mus/Ske: Muscle strength 3/5 RLE. Range of motion decreased to right lower extremity. Left footdigital contractures. Psych: Mood normal, affect normal, concentration normal Diabetic Foot Exam: Performed Inspection: Wound site right TMA stump presents with dry, stable plantar flap and dorsal eschar andmedial incision sutures intact. There is periwound hyperkeratosis in need of debridement. After debridement, pink, healthy superficial tissue noted to plantar aspect of TMA stump, as before. There is not any evidence of edema, erythema, purulence, malodor, probe to bone, tracking or tunneling noted. The wound site is improving. Pulses: Biphasic signal noted to DP/PT/peroneal, RLE. Monofilament Exam: Diminished sensation to bilateral LE on monofilament exam. Assessment and Plan: 1. S/p right diagnostic angiogram (none previously performed with history of toe amputations withoutangiography), selective catherization of 3rd order vessel x 2 (peroneal and anterior tibial artery),right peroneal artery balloon angioplasty, right anterior tibial balloon angioplasty (06/15/19 - Shashi) 2. S/p right SPY, I&D abscess post amputation site, right TMA with advancement placement flap with primary closure (06/19/19 - Hermes) 3. PAD 4. DM II - insulin 5. DPN, bilateral - gabapentin 1. F/u with Dr. Danielle 08/28/2019 2. With the use of a sharp and sterile #15 blade and tissue nippers, the right TMA stump wound site was sharply debrided down to and including the subcutaneous tissue less than 20cm2. Scant bleeding was noted and controlled via direct pressure. The wound site was then dressed with mupirocin to edgesof the wound, followed by application of Adaptic, Betadine wet to dry, sterile 4x4, webrill and nica bandage in a mildly compressive manner. He was instructed to change dressing daily as performed in clinic, as before. Verbalized understanding after demonstration performed. 3. DM education given and reinforced as previous OV. Patient verbalized understanding. Findings were discussed with the patient and all questions were answered. F/u 2 weeks ZOLTAN Clemente [facility] Division of Vascular Surgery and Podiatry I personally examined , And perfromed post op wound care, performed sharp debridement of the surrounding tissue of the post TMA stump and flap, improving and was present for the evaluation and treatment of patient Dayton Grijalva I concur with the examination, findings, procedures, and documentation on patient Dayton Grijalva by Torie Clemente DPM Perforator Operator [facility] Feliz Finney Department of Surgery Division of Vascular Surgery and Endovascular Therapy documented in this encounter Plan of Treatment Date Type Specialty Care Team Description 08/21/2019 Office Visit Vascular Surgery Star Mirza DPM [address] [facility] [address] [place], [place] [address] [phone] 08/28/2019 Office Visit Vascular Surgery Clark Danielle MD [address] [facility] [address] [place], [place] [address] [phone] Name Type Priority Associated Diagnoses Order S chedule UT DEBRIDEMENT OPEN UT Charge Routine S/P transmetatarsal O rdered: WOUND 20 SQ CM< amputation of foot, right 08/07/2019 (HCCode) Post-operative state Health Maintenance Due Date Last Done Comments COLON CANCER SCREENING: COLONOSCOPY 1960 TETANUS SHOT (ADULT) 11/11/1974 ANNUAL DIABETIC FOOT EXAM 11/11/1977 ANNUAL DIABETIC RETINOPATHY SCREENING 11/11/1977 HEPATITIS C SCREENING 11/11/1977 HIV SCREENING 11/11/1977 MEDICARE AWV (Initial) 02/05/2012 FLU VACCINE > 6 MONTHS 10/06/2019 BMI FOLLOW UP PLAN 07/23/2020 07/24/2019 documented as of this encounter Results Not on filedocumented in this encounter Visit Diagnoses Diagnosis PAD (peripheral artery disease) (HCCode) - Primary Unspecified disorders of arteries and ar terioles S/P transmetatarsal amputation of foot, right (HCCode) Post-operative state Other postprocedural status Encounter for post surgical wound check Type 2 diabetes mellitus with diabetic p eripheral angiopathy without gangrene, with long-term current use of insulin (HCCode ) documented in this encounter Insurance Payer Benefit Plan / Subscriber ID Effective Phone Address T ype Group Dates [employer] xxxxxxxxx*xx 2019-Prese [address] HMO - RNPO PCP nt [id number] [place] [address] documented as of this encounter
--- OUTSIDE RECORDS SUMMARY | 2019-09-03 17:04 | XMS REPORT | Summary of Care ---
:1960 Author Organization [facility] [place] [address] Care Team Providers Name Role Phone Tito Duval MD Primary Care Provider Reason for Visit Reason Comments Follow Up wound care Post-op Follow-up Wound Check Encounter Details Date Type Department Care Team Description [facility] V[facility] DPM care[facility] Post-op Surgery [address] [facility] Follow-up; Wound Check [address] [facility] [address] 6[address] Floor, [address] [place] [address] [place] [phone] [address] [phone] Allergies No Known Allergiesdocumented as of this encounter (statuses as of 07/18/2019) Medications No known medicationsdocumented as of this encounter (statuses as of 07/18/2019) Active Problems Problem Noted Date PAD (peripheral artery disease) (HCCode) 07/17/2019 documented as of this encounter (statuses as of 07/18/2019) Social History Tobacco Use Types Packs/Day Years [...] been in contact with No / Unsure 07/17/2019 11:21 AM CDT someone who was confirmed or suspected to have Coronavirus / COVID-19? documented as of this encounter Last Filed Vital Signs Vital Sign Reading Time Taken Comments Blood Pressure 126/72 07/10/2019 3:16 PM CDT Pulse 86 07/10/2019 3:16 PM CDT Temperature - - Respiratory Rate - - Oxygen Saturation - - Inhaled Oxygen Concentration - - Weight 104.3 kg (230 lb) 07/10/2019 3:16 PM CDT Height 172.7 cm (5' 8") 07/10/2019 3:16 PM CDT Body Mass Index 34.97 07/10/2019 3:16 PM CDT documented in this encounter Patient Instructions Patient InstructionsLorraine Rudd CMA - 07/10/2019 4:45 PM CDTThank you for choosing [facility]. You may receive a survey in the mail. Please provide comments to let us know how we can improve our patient care. Patient will follow up with and in a week. A26 completed in office on 07/10/2019 Star Mirza DPM, FACFAS Rubber Goods Inspector Tester Division of Vascular Surgery and Endovascular Therapy If you have any questions, please feel free to call us at: documented in this encounter Progress Notes Star Mirza DPM - 07/10/2019 3:00 PM CDTSubjective: Dayton Grijalva is a 58 y.o. male that presents today for follow-up evaluation of recent R MARTY and peroneal balloon angioplasty (06/15/19 - Shashi) and R transmetatarsal amputation (06/19/19 - Hermes). The postoperative period has been complicated by flap necrosis likely due to tension created by suture placement. The wound is clean, dry, and without any signs of infection. The patient denies fever, wound drainage, increasing redness, pus, increasing pain, increasing swelling.He has also been ambulating onthe right foot with P.T. No new complaints. he denies any nausea, vomiting, fever, or chills. Objective: BP 126/72 (BP Location: right arm, Patient Position: Sitting) | Pulse 86 | Ht 5' 8" (1.727 m) | Wt 230 lb (104.3 kg) | BMI 34.97 kg/m General: Patient is alert, responsive, NAD Lower Ext: Derm: Right TMA flap necrotic with sutures intact. Vasc: Pedal pulses are palpable bilateral lower extremity. CFT < 3 sec bilateral. Palpable femoral pulses were present bilaterally with Dopplerable popliteal, dorsalis pedis and posterior tibial artery signals. Neuro: Protective threshold is not intact bilateral. Mus/Ske: Muscle strength 5/5 bilateral. Range of motion within normal limits. Psych: Mood normal, affect normal, concentration normal Vascular Ultrasound Study: Assessment and Plan: Peripheral arterial disease with status post TMA & R MARTY and peroneal BA Plan: Post op wound care and refer to Dr. Danielle for vascular testing and evaluation of the failed plantar flap post TMA, right. Wound care performed, with sterile dressing change. Follow up 2 weeks for wound check and wound care Findings were discussed with the patient and all questions were answered. Star Mirza DPM Rubber Goods Inspector Tester [facility] Department of Surgery Division of Vascular Surgery and Endovascular Therapy documented in this encounter Plan of Treatment Date Type Specialty Care Team Description 07/24/2019 Office Visit Vascular Surgery Star Mirza DPM [address] [address] 0 [phone] Health Maintenance Due Date Last Done Comments COLON CANCER SCREENING: COLONOSCOPY 1960 TETANUS SHOT (ADULT) 11/11/1974 ANNUAL DIABETIC FOOT EXAM 11/11/1977 ANNUAL DIABETIC RETINOPATHY SCREENING 11/11/1977 BMI FOLLOW UP PLAN 11/11/1977 HEPATITIS C SCREENING 11/11/1977 HIV SCREENING 11/11/1977 FLU VACCINE > 6 MONTHS 10/06/2019 documented as of this encounter Results Not on filedocumented in this encounter Visit Diagnoses Diagnosis PAD (peripheral artery disease) (HCCode) - Primary Unspecified disorders of arteries and ar terioles Status post transmetatarsal amputation o f foot, right (HCCode) Non-healing wound of lower extremity, ri ght, subsequent encounter documented in this encounter
--- OUTSIDE RECORDS SUMMARY | 2019-09-03 17:04 | XMS REPORT | Summary of Care ---
:1960 Author Organization [facility] [place] [address] Care Team Providers Name Role Phone Tito Duval MD Primary Care Provider Reason for Visit Reason Comments Follow Up peripheral artery disease Post-op Follow-up Wound Check Consult, Test & Treat (Routine) Status Reason Specialty Diagnoses / Referred By Referred To Procedures Contact Contact Patient Podiatry / Diagnoses 1w F/U 1w F/U Star Mirza Jeffrey Responsible Vascular Surgery Procedures ESTABLISHED OFFICE VISIT A, DPM A, DPM [address] [place] [address] [address] [place] [address] Phone: Fax: Encounter Details Date Type Department Care Team Description 07/24/2019 Office Visit [facility] Star Bartholomew, Follow Up (peripheral Medicine Vascular DPM artery disease); Surgery [address] [place] [address] Post-op Follow-up; [address] [facility] 1325 Wound Check 6th Floor, [address] [phone] [address] [phone] Allergies No Known Allergiesdocumented as of this encounter (statuses as of 07/31/2019) Medications Medication Sig Dispensed Refills Start Date [...] as of this encounter (statuses as of 07/31/2019) Active Problems Problem Noted Date Post-operative state 07/24/2019 S/P transmetatarsal amputation of foot, right (HCCode) 07/24/2019 Type 2 diabetes mellitus with diabetic peripheral you opathy without 07/24/2019 gangrene, with long-term current use of insulin (HCCod e) Encounter for post surgical wound check 07/24/2019 PAD (peripheral artery disease) (HCCode) 07/17/2019 documented as of this encounter (statuses as of 07/31/2019) Social History Tobacco Use Types Packs/Day Years [...] been in contact with No / Unsure 07/24/2019 1:30 PM CDT someone who was confirmed or suspected to have Coronavirus / COVID-19? documented as of this encounter Last Filed Vital Signs Vital Sign Reading Time Taken Comments Blood Pressure 146/80 07/24/2019 1:50 PM CDT Pulse 68 07/24/2019 1:50 PM CDT Temperature - - Respiratory Rate - - Oxygen Saturation - - Inhaled Oxygen Concentration - - Weight 104.3 kg (230 lb) 07/24/2019 1:50 PM CDT Height 172.7 cm (5' 8") 07/24/2019 1:50 PM CDT Body Mass Index 34.97 07/24/2019 1:50 PM CDT documented in this encounter Patient Instructions Patient InstructionsPattie Kimball, SIERRA - 07/24/2019 1:00 PM CDTThank you for choosing [facility]. You may receive a survey in the mail. Please provide comments to let us know how we can improve our patient care. Patient will follow up with in 2 weeks. Wound Care orders given to patient. Star Mirza DPM, FACFAS Platform Stapler Division of Vascular Surgery and Endovascular Therapy If you have any questions, please feel free to call us at: Your There is no height or weight on file to calculate BMI. Body mass index (BMI) can help you see if your weight is raising your risk for health problems. It uses a formula to compare how much you weigh with how tall you are. A BMI between 18.5 and 24.9 is considered healthy. A BMI between 25 and 29.9 is considered overweight. A BMI of 30 or higher is considered obese. If your BMI is in the normal range, it means that you have a lower risk for weight-related health problems. If your BMI is in the overweight or obese range, you may be at increased risk for weight-related health problems, such as high blood pressure, heart disease, stroke, arthritis or joint pain, anddiabetes. BMI is just one measure of your risk for weight-related health problems. You may be at higher risk for health problems if you are not active, you eat an unhealthy diet, or you drink too much alcohol oruse tobacco products. Follow-up care is a emmanuel part of your treatment and safety. Be sure to make and go to all appointments, and call your doctor if you are having problems. It's also a good idea to know your test results and keep a list of the medicines you take. How can you care for yourself at home? Practice healthy eating habits. This includes eating plenty of fruits, vegetables, whole grains, lean protein, and low-fat dairy. Get at least 30 minutes of exercise 5 days a week or more. Brisk walking is a good choice. You also may want to do other activities, such as running, swimming, cycling, or playing tennis or team sports. Do not smoke. Smoking can increase your risk for health problems. If you need help quitting, talkto your doctor about stop-smoking programs and medicines. These can increase your chances of quitting for good. Limit alcohol Where can you learn more? Go to [email or web address].SocialRepst. [facility] centerLiveLeaf Go to the Search tab with the magnifying glass on the right side of Ztory home page. Enter S176 in the search box to learn more about "Body Mass Index: Care Instructions." documented in this encounter Progress Notes Pattie Kimball, SIERRA - 07/24/2019 1:00 PM CDT Subjective: Dayton Grijalva is a 58 y.o. male that presents today for follow-up evaluation and management of right TMA with advancement placement flap with primary closure (06/19/19 - Ross). he admits to to being compliant with his local wound care consisting of Betadine wet to dry dressingdaily to TMA stump. He denies any additional complaints today. No results found for: HGBA1C. No new complaints. he denies any nausea, vomiting, fever, or chills. amLODIPine (NORVASC) 10 MG tablet Take 1 [...] (peripheral artery disease) 06/14/2019 ESRD on hemodialysis Past Surgical History: Procedure Laterality Date HX AMPUTATION FOOT AMPUTATION THROUGH METATARSAL 2009 Left TOE AMPUTATION Right 2nd toe 05/2019, 3rd toe 06/2019 CORONARY ARTERY BYPASS GRAFT 09/2018 PERIPHERAL ANGIOS / AORTOGRAM 06/15/2019 Bilateral Procedure: PERIPHERAL ANGIOS / AORTOGRAM; Surgeon:Clark Danielle MD; Location: [facility]; Service: General Surgery; Laterality: Bilateral; AMPUTATION,TOE 06/19/2019 Right Procedure: AMPUTATION,TOE; Surgeon: Star Mirza DPM; Location: [facility]; Service: Podiatry; Laterality: Right; AMPUTATION 4TH DIGIT PARTIAL, 2nd ,3rd ,4th RAY AMPUTATION RIGHT FOOT WITH POSSIBLE TRANSMETATARASAL AMPUTATION WITH SPY MACHINE,PULSE LAVAGE AND VERSA JET OSTECTOMY,FOOT/ TOE 06/19/2019 Right Procedure: OSTECTOMY,FOOT/ TOE; Surgeon: Star Mirza DPM; Location: [facility] OR; Service: Podiatry; Laterality: Right; AMPUTATION,FOOT 06/19/2019 Right Procedure: AMPUTATION,FOOT; Surgeon: Star Mirza DPM; Location: [facility] OR; Service: Podiatry; Laterality: Right; PROCEDURE W/SPY ELITE FLUORESCENT VASCULAR ANGIOGRAPHY 06/19/2019 N/A Procedure: PROCEDURE W/ SPY ELITE FLUORESCENT VASCULAR ANGIOGRAPHY; Surgeon: Star Mirza DPM; Location: [facility] OR; Service: Podiatry; Laterality: N/A; Surgical [...] flap with primary closure (06/19/19 - Hermes). Objective: BP 146/80 (BP Location: right arm, Patient Position: Sitting) | Pulse 68 | Ht 5' 8" (1.727 m) | [...] tissue noted to plantar aspect of TMA stump. There is not any eviden ce of edema, erythema, purulence, malodor, probe to bone, tracking or tunneling noted. The wound site is improving. Vasc: Pedal pulses are palpable bilateral lower extremity. CFT < 3 sec bilateral. Neuro: Protective threshold is not intact bilateral. Mus/Ske: Muscle strength 4a/5 bilateral. Range of motion decreased to bilateral lower extremities. Psych: Mood normal, affect normal, concentration normal Pre Debridement: Post Debridement: Assessment and Plan: 1. S/p right diagnostic angiogram (none previously performed with history of toe amputations withoutangiography), selective catherization of 3rd order vessel x 2 (peroneal and anterior tibial artery),right peroneal artery balloon angioplasty, right anterior tibial balloon angioplasty (06/15/19 - Danielle) 2. S/p right SPY, I&D abscess post amputation site, right TMA with advancement placement flap with primary closure (06/19/19 - Hermes) 3. PAD 4. DM II - insulin 5. DPN, bilateral - gabapentin 1. F/u with Dr. Danielle 08/2019 2. With the use of a sharp [...] to change dressing daily as performed in clinic. New wound care orders given to patient and son. Verbalized understanding after demonstration performed. 3. Encouraged patient to examine feet daily, including inspecting the area between the toes. Keep feet clean and dry. Pay attention to broken skin, ulcers, blisters (do not pop), areas of increased warmth or redness, or changes in callus formation; let your health care provider know if you notice if any of these changes or have any concerns. If you are unable to reach your feet or see them completely, even with a mirror, ask another person (such as a spouse or other family member) to help you. Pay attention to temperatures and surfaces, including walking barefoot. Choose socks and shoes carefully. Encouraged cotton socks and diabetic shoes; snug but not too tight, with a wide toebox. Discussed glycemic control, with education on goal A1C < 7.0 and regular follow up appointments with conveyor mechanic. Education on smoking cessation/do not initiate smoking. Follow up with Dr. Mirza to trim your toenails straight across, and avoid cutting them down the sides or too short. You can use a nail file to remove any sharp edges to prevent the toenail from digging into your skin. Never cut your nails/cuticles or allow anyone else to do so. Findings were discussed with the patient and all questions were answered. F/u 2 weeks Pattie Kimball NP-[facility] Division of Vascular Surgery and Podiatry I personally examined , And performed post op wound care and performed sharp debridement of eschar post op wound site of post TMA, right and was present for the evaluation and treatment of patient Dayton Grijalva I concur with the examination, findings, procedures, and documentation on patient Dayton Grijalva by Pattie Kimball N.P. Star Mirza DPM Platform Stapler [facility] Feliz Finney Department of Surgery Division of Vascular Surgery and Endovascular Therapy documented in this encounter Plan of Treatment Date Type Specialty Care Team Description 08/07/2019 Office Visit Vascular Surgery Star Mirza DPM [address] [facility] [address] [place] [address] [phone] 08/28/2019 Office Visit Vascular Surgery Clark Danielle MD [address] [facility] [address] [place], [place] [address] [phone] Name Type Priority Associated Diagnoses Order S chedule NM DEBRIDEMENT OPEN NM Charge Routine S/P transmetatarsal O rdered: WOUND 20 SQ CM< amputation of foot, right 07/24/2019 (HCCode) Post-operative s cardenas Encounter for post surgical wound check Health Maintenance Due Date Last Done Comments [...] long-term current use of insulin (HCCode ) Increased BMI (body mass index) Status post transmetatarsal amputation o f foot, right (HCCode) Non-healing wound of lower extremity, ri ght, subsequent encounter Controlled type 2 diabetes mellitus with diabetic peripheral angiopathy and gangrene, with long-term current use of insulin (H CCode) documented in this encounter Insurance Payer Benefit Plan / Subscriber ID Effective Phone Address T ype Group Dates [place] [employer] xxxxxxxxx*xx 2019-e [address] HMO - RNPO PCP nt [id number] [place] [address] documented as of this encounter
--- OUTSIDE RECORDS SUMMARY | 2019-09-03 17:04 | XMS REPORT | Summary of Care ---
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 SUPERVISOR and TMA) Surgery [address] [place] [address] [address] 6th Floor, [address] [place] [address] [place] [address] [phone] Allergies No Known Allergiesdocumented as of this encounter (statuses as of 07/24/2019) Medications No known medicationsdocumented as of this encounter (statuses as of 07/24/2019) Active Problems Problem Noted Date PAD (peripheral artery disease) (HCCode) 07/17/2019 documented as of this encounter (statuses as of 07/24/2019) Social History Tobacco Use Types Packs/Day Years Used Date Never Smoker Smokeless Tobacco: Never Used Tobacco Cessation: Counseling Given: Yes Alcohol Use Drinks/Week oz/Week Comments Not Currently [...] Sign Reading Time Taken Comments Blood Pressure 130/51 07/17/2019 11:32 AM CDT Pulse 68 07/17/2019 11:32 AM CDT Temperature - - Respiratory Rate - - Oxygen Saturation - - Inhaled Oxygen Concentration - - Weight 104.3 kg (230 lb) 07/17/2019 11:32 AM CDT Height 172.7 cm (5' 8") 07/17/2019 11:32 AM CDT Body Mass Index 34.97 07/17/2019 11:32 AM CDT documented in this encounter Patient Instructions Patient InstructionsMelissa Noel CMA - 07/17/2019 12:03 PM CDTThank you for choosing [facility]. You may receive a survey in the mail. Please provide comments to let us know how we can improve our patient care. Instructions for your care: Dr.Joseph Shashi SR., Professor and Chief Division of Vascular Surgery and Endovascular Therapy If you have any questions, please feel free to call us at: documented in this encounter Progress Notes Kassie Ramachandran NP - 07/17/2019 11:15 AM CDT [facility] [address] [place] [address], [place]. [address] Office: [phone] Postop Followup s/p AT angioplasty by and TMA right foot by Dr Mirza DATE OF VISIT: 07/17/19 PATIENT NAME: Dayton Grijalva : 1960 Clark Danielle MD PCP / REFERRING PHYSICIAN: Tito Duval / Cathie [id number] / [facility] [id number] The patient presents today for a Vascular Surgery Established Patient Visit. The patient has recently undergone a R MARTY and peroneal balloon angioplasty (06/15/19 - Shashi) and R transmetatarsal amputation (06/19/19 - Hermes). The post operative period has been complicated by flap necrosis likely due to tension created by suture placement. The wound is clean, dry, and without any signs of infection. The patient denies fever, wound drainage, increasing redness, pus, increasing pain, increasing swelling. Physical examination revealed clean groin punctured site which is healing well without signs of infection or hematoma. VITAL SIGNS: BP 130/51 (BP Location: right arm, Patient Position: Sitting) | Pulse 68 | Ht 5' 8" (1.727 m) | Wt 230 lb (104.3 kg) | BMI 34.97 kg/m PHYSICAL EXAM: Constitutional: Well nourished, no signs of distress Cardiovascular: Normal rate, regular rhythm and normal heart sounds. Pulmonary/Chest: Breath sounds normal. No respiratory distress. Abdominal: Soft. No abdominal distension or tenderness. Musculoskeletal: Normal range of motion. No evidence of arthritis. Extremities: No edema, cyanosis or clubbing. Neurological: He is alert and oriented. No muscle weakness and normal gait. VASCULAR: Palpable femoral pulses were present bilaterally with Dopplerable popliteal, dorsalis pedis and posterior tibial artery signals. Right TMA flap adherent with dry, nonviable at least partial thickness plantar flap, most likley due to walking and xs tension with sutures intact. TMA flap partial loss, but dry and adherent Widely patent AT angioplasty by duplex (I reviewed study and personally examined patient and discussed with Dr Mirza - [facility]) Vascular Ultrasound Study: Assessment & Plan: DM, severe tibial PAD, s/p AT angioplasty and TMA with partial TMA flap compromise W 3 I 0 fI 0 Continue local wound care - alternate f/u visits with Dr Mirza and me S/p TMA with flap necrosis & R MARTY and peroneal BA - The Right TMA stump is stable. No surgicalintervention indicated at this time. The patient will continue wound care with Betadine and close monitoring of the stump with Dr. Mirza. The patient will follow up with Dr. Mirza in 1 week. Follow up with Dr. Danielle in 1 month. Kassie Ramachandran NP Teaching Physician Attestation I was present in the room with BRIDGER Ramachandran during the history and exam and I agree with the assessment and plan as documented in this joint note above . Clark Danielle MD lumber sorter Chief, Division of Vascular Surgery and Endovascular Therapy [facility] 07/17 2019 documented in this encounter Plan of Treatment Date Type Specialty Care Team Description 07/24/2019 Office Visit Vascular Surgery Star Mirza DPM [address] [facility] [address] [place], [place] [address] [phone] Health Maintenance Due Date Last Done Comments COLON CANCER SCREENING: COLONOSCOPY 1960 TETANUS SHOT (ADULT) 11/11/1974 ANNUAL DIABETIC FOOT EXAM 11/11/1977 ANNUAL DIABETIC RETINOPATHY SCREENING 11/11/1977 BMI FOLLOW UP PLAN 11/11/1977 HEPATITIS C SCREENING 11/11/1977 HIV SCREENING 11/11/1977 FLU VACCINE > 6 MONTHS 10/06/2019 documented as of this encounter Results Not on filedocumented in this encounter Visit Diagnoses Diagnosis S/P transmetatarsal amputation of foot, right (HCCode) - Primary Controlled type 2 diabetes mellitus with diabetic peripheral angiopathy and gangrene, with long-term current use of insulin (H CCode) documented in this encounter
--- OUTSIDE RECORDS SUMMARY | 2019-09-03 17:04 | XMS REPORT | Continuity of Care Document ---
:1960 Author Organization [facility] t Address [address] [place] [address] Dr. [address] [place] [address] Care Team Providers Name Role Phone Tito Duval MD Primary Care Physician [phone] Vikas Mirza DPM Attending Clinician Steve Danielle MD Attending Clinician KENY HAGAN Attending Clinician Unavailable Keny Hagan MD Attending Clinician Jeremy Land MD Attending Clinician [phone] Merchant LOGAN Attending Clinician Filomena Alvarez MD Attending Clinician Ruby Mirza DPM Attending Clinician Fela Danielle MD Attending Clinician Jatinder DORSEY Attending Clinician Unavailable Clemente Attending Clinician Unavailable Jorge Attending Clinician Unavailable Venus Trinidad MD Attending Clinician Belle Farrar MD Attending Clinician Lady TAYLOR Attending Clinician Unavailable Susanna Chau Attending Clinician Isabelle Attending Clinician Unavailable Sarabjit Malave MD Attending Clinician [phone] Juan Shah RN Attending Clinician Unavailable Rudi TAYLOR Attending Clinician Unavailable Aron Byrne MD Attending Clinician Maria M ADAMS Attending Clinician Aida Attending Clinician Unavailable KENY HAGAN Admitting Clinician Unavailable Payers Payer Name Policy Policy Number Effective Expiration Source Type Date Date [facility]IGNA [facility]xxxxxxxx [facility] ALLxxxxxxxxxMaps Contracted CIGNA xxxxxxxxxxx 2019 [facility] 00:00:00 [facility] [id number] 0-PresentO MEDICAREMEDICARE PART xxxxxxxxxxx 2019 Ramesh lyonssuri Vikas AND 00:00:00 Yarsani [place] Condition Condition Condition Status Onset Resolution Last Treating Co mments Source Name Details Category Date Date Treatment Clinician Date Gangrene [facility]rene Disease [facility] - foot foot 00:00: Medical 00 [place] Ischemia Ischemia Disease [facility] - 00:00: Medical 00 [place] CKD CKD Disease Active [facility] St (chronic (chronic 06-13 - kidney kidney 00:00: Medical disease) disease) 00 [place] stage V stage V requiring requiring chronic chronic dialysis dialysis Type 2 Type [address] [facility] diabetes diabetes 06-13 - mellitus mellitus 00:00: Medica l with with 00 Center diabetic diabetic peripheral peripheral angiopathy angiopathy and and gangrene, gangrene, with with long-term long-term current current use of use of insulin insulin PAD PAD Disease Active [facility] (periphera (periphera 06-13 Regi kes - l artery l artery 00:00: Medica l disease) disease) 00 Center CAD CAD Disease Active [place] (coronary (coronary 09-22 Meth virgen artery artery 00:00: st disease) disease) 00 Hypertensi Hypertensi Disease [place] on 09-22 Methodi 00:00: st 00 ESRD (end ESRD (end Disease Active [place] stage stage 09-22 Methodi renal renal 00:00: st disease) disease) 00 on on dialysis dialysis S/P CABG x S/P CABG x Disease [facility] 3 3 09-22 Methodi 00:00: st 00 Acute Acute Disease Active [place] blood loss blood loss 09-22 [facility] anemia anemia 00:00: st 00 Blind left Blind left Disease Active [facility] eye eye 09-22 Methodi 00:00: st 00 Type 2 Type 2 Disease Active [place] diabetes diabetes 09-22 Method i mellitus mellitus 00:00: st 00 CAD in CAD in Disease Active Overview: [place] 08-31 Added Methodi artery artery 00:00: automatic st ally from request for surgery [id number] ESRD on ESRD on Disease Active [facility] St hemodialys hemodialys kes - is is [facility] Allergies, Adverse Reactions, Alerts This patient has no known allergies or adverse reactions. Family History Family Member Diagnosis Comments Start Date Stop Date Source Natural father Diabetes [facility] Natural mother Diabetes [facility] Social History Social Habit Start Date Stop Date Quantity Comments Source History SDAL [facility] - Alcohol Std Drinks Medica Center History SDAL [facility] - Alcohol Binge Medical [facility] [address] [facility] History of tobacco Current smoker [facility] 2019-06-14 2019-06-[address] [facility] - Alcohol Frequency 00:00:00 00:00:00 [facility] Alcohol intake 2018-10-24 2018-10-24 [facility] (finding) Smoking Status Start Date Stop Date Source Former smoker 2018-10-24 00:00:00 2018-10-24 00:00:00 [place] Yarsani Medications Ordered Filled Start Stop Current Ordering Indication Dosage Frequency Signature Comments Components Source Medication Medication Date Date Medication? Clinician (SIG) Name Name insulin Yes 10U Q.5D Inject 0.[address] [facility] detemir 4-22 mLs (10 [facility] - U-100 00:00: Units Medical (LEVEMIR) 00 total) Center 100 unit/mL subcutaneo (3 mL) In usly 2 injection (two) times daily. amLODIPine 2020- Yes 10mg QD Take [address] [address] (NORVASC) 06-26 tablet (10 Sylvia es - 10 MG 00:00: 23:59 mg total) Medica l tablet 00 :00 by mouth Center daily. carvediloL 2020- Yes 12.5mg Q.5D Take [address] (COREG) 06-26- tablet [facility]ukes - 12.5 MG 00:00: 23:59 (12.5 mg Medic al tablet 00 :00 total) by Center mouth 2 (two) times daily. hydrALAZINE 2020- Yes 25mg Q.5D Take [address] (APRESOLINE 06-26 tablet (25 L ukes - ) 25 MG 00:00: 23:59 mg total) Medi magdaleno tablet 00 :00 by mouth 2 Center (two) times daily. spironolact 2020- Yes 25mg QD Take [address] [facility] one 06-26 tablet (25 [facility] - (ALDACTONE) 00:00: 23:59 mg total) Medical 25 MG 00 :00 by mouth Center tablet daily. furosemide 2020- Yes 40mg QD Take [address] (LASIX) 40 06-26 tablet (40 Regi kes - MG tablet 00:00: 23:59 mg total) Me dical 00 :00 by mouth Center daily. gabapentin 2020- Yes 300mg QD Take [address] (NEURONTIN) 06-26 capsule Luke s - 300 MG 00:00: 23:59 (300 mg Medical capsule 00 :00 total) by Center mouth daily. aspirin 81 2020- Yes 81mg QD Take [address] MG chewable 06-26 tablet (81 L ukes - tablet 00:00: 23:59 mg total) Medic al 00 :00 by mouth Center daily. sevelamer 2020- Yes 3200mg Take [address] (RENVELA) 06-26- tablets [facility]ukes - 800 mg 00:00: 23:59 (3,200 mg Medic al tablet 00 :00 total) by Center mouth 3 (three) times daily with meals. senna-docus 2020- Yes 2{tbl} QD Take [address] ate 06-26 tablets by Promise - (SENOKOT S) 00:00: 23:59 mouth Medi magdaleno 8.6-50 mg 00 :00 nightly. Center per tablet traMADoL 2019- No 50mg Take [address] (ULTRAM) 50 06-26 tablet (50 L ukes - mg tablet 00:00: 23:59 mg total) Me dical 00 :00 by mouth Center every 6 (six) hours as needed for up to 10 days. Max Daily Amount: 200 mg HYDROcodone 2019- No 1{tbl} Take [address] -acetaminop 06-26 tablet by Regi perry (NORCO 00:00: 23:59 mouth Medic al 10-325) 00 :00 every 6 Center 10-325 mg (six) per tablet hours as needed for up to 10 days. Max Daily Amount: 4 tablets sodium 2019- No Q.5D Apply [facility] hypochlorit 06-26 topically Regi sotos - e (DAKIN'S, 00:00: 23:59 2 (two) Me dical HALF-STRENG 00 :00 times Center TH,) 0.25 % daily for external 7 days. solution mupirocin 2019- No 1g QD Apply [address] (BACTROBAN) 06-26 topically Regi sotos - 2 % 00:00: 23:59 daily for Medical ointment 00 :00 7 days. Center amoxicillin 2019- No 1{tbl} Q24H Take [address] -clavulanat 06-26 tablet by Regi jimenez - bessy 00:00: 23:59 mouth Medical (AUGMENTIN) 00 :[address] 500-125 mg 6 days. per tablet mINOCYCLine 2019- No 100mg Take [address] (MINOCIN,DY 06-26 capsule Tomas s - NACIN) 100 00:00: 23:59 (100 mg Med ical MG capsule 00 :00 total) by Cent er mouth every 12 (twelve) hours for 6 days. polyethylen 2019- No 34g Q.5D Take [address] e glycol 06-26 by mouth 2 Luke s - (GLYCOLAX) 00:00: 23:59 (two) Medic al 17 gram 00 :00 times Center packet daily for 3 days. doxycycline 2018- No S/P CABG x TAKE 1 Song (VIBRAMYCIN -11-21 3 CAPSULE BY Laisha camarena ) 100 MG 00:00: 23:[address] capsule 00 :00 TWICE A DAY FOR 7 DAYS ciprofloxac 2018- No 500mg QD Take 1 [place] (CIPRO) 10-29 tablet Method i 500 MG 00:00: 23:59 ([address] tablet 00 :00 total) by mouth daily for 7 days. glipiZIDE Yes 10mg Q.5D Take 10 mg [place] (GLUCOTROL) 8-20 by mouth 2 Me thodi 10 MG 13:35: (two) st tablet 32 times a day before meals. spironolact Yes 25mg QD Take 25 mg Song one 8-20 by mouth Methodi (ALDACTONE) 13:35: daily. st 25 MG 32 tablet gabapentin Yes 300mg QD Take 300 [place] (NEURONTIN) 8-20 mg by Methodi 300 mg 13:35: mouth st capsule 32 daily. doxycycline 2018- No S/P CABG x 100mg Q.5D Take 1 Song (VIBRAMYCIN 10-20 3 capsule Meth virgen ) 100 MG 00:00: 00:00 ([address] capsule 00 :00 total) by mouth 2 (two) times a day for 7 days. methylPREDN 2018- No follow Tete jeann ISolone 09-29 package Methodi (MEDROL 00:00: 23:[address] DOSEPAK) 4 00 :00 mg tablet aspirin 325 2018- No 325mg QD Take 1 [place] MG tablet 09-28 tablet Methodi 00:00: 23:59 ([address] 00 :00 total) by mouth daily for 30 days. amLODIPine 2018- No 5mg QD Take 1 [place] (NORVASC) 5 09-28 tablet (5 Me thodi mg tablet 00:00: 23:59 mg total) st 00 :00 by mouth daily for 30 days. methylPREDN 2018- No follow Tete ston ISolone 09-28 package Methodi (MEDROL 00:00: 23:[address] DOSEPAK) 4 00 :00 mg tablet methylPREDN 2018- No follow Tete ston ISolone 09-28 package Methodi (MEDROL 00:00: 23:[address] DOSEPAK) 4 00 :00 mg tablet methylPREDN 2018- No follow Tete ston ISolone 09-28 package Methodi (MEDROL 00:00: 23:[address] DOSEPAK) 4 00 :00 mg tablet amLODIPine 2019- No 10mg QD Take 10 mg Song (NORVASC) 09-27 by mouth Metho di 10 mg 14:41: 00:[address] tablet 01 :00 carvedilol 2018- No 12.5mg Q.5D Take 12.5 Song (COREG) 09-27 mg by Methodi 12.5 MG 14:41: 00:[address] tablet 01 :00 (two) times a day with meals. furosemide 2018- No 40mg QD Take 40 mg Song (LASIX) 40 09-27 by mouth Meth virgen mg tablet 14:41: 00:[address] 01 :00 hydrALAZINE 2018- No 25mg QD Take 25 mg Song (APRESOLINE 09-27 by mouth Met hodi ) 25 MG 14:41: 00:[address] tablet 01 :00 atorvastati 2019- No 40mg QD Take 1 Tetejayme benito n (LIPITOR) 09-27 tablet (40 M ethodi 40 MG 00:00: 23:59 mg total) st tablet 00 :00 by mouth nightly for 30 days. carvedilol 2019- No 12.5mg Q.5D Take 1 [place] (COREG) 09-27 tablet Methodi 12.5 MG 00:00: 23:59 (12.[address] tablet 00 :00 total) by mouth 2 (two) times a day with meals for 30 days. methylPREDN 2019- No follow Tete ston ISolone 09-27 package Methodi (MEDROL 00:00: 23:[address] DOSEPAK) 4 00 :00 mg tablet methylPREDN 2018- No follow Tete ston ISolone 09-27 package Methodi (MEDROL 00:00: 23:[address] DOSEPAK) 4 00 :00 mg tablet methylPREDN 2018- No follow Tete ston ISolone 09-27 package Methodi (MEDROL 00:00: 23:[address] DOSEPAK) 4 00 :00 mg tablet aspirin 2018- No 81mg QD Take 1 Song (ECOTRIN) 08-31 tablet (81 Met hodi 81 MG 00:00: 00:00 mg total) st enteric 00 :00 by mouth coated daily for tablet 30 days. atorvastati 2018- No 80mg QD Take 1 Tete bell (LIPITOR) 08-31 tablet (80 M ethodi 80 MG 00:00: 00:00 mg total) st tablet 00 :00 by mouth daily for 30 days. Vital Signs Vital Name Observation Time Observation Value Comments Source Systolic blood 2019-06-27 12:00:00 131 mm[Hg] [facility] Diastolic blood 2019-06-27 12:00:00 67 mm[Hg] [facility] Heart rate 2019-06-27 12:00:00 79 /min [facility] Body temperature 2019-06-27 12:00:00 36.44 Rima [facility] Respiratory rate 2019-06-27 12:00:00 18 /min [facility] Oxygen saturation in 2019-06-27 12:00:00 96 /min [facility] Arterial blood by Medical Ce nter Pulse oximetry Body weight Measured 2019-06-27 11:45:00 99.1 kg [facility] BMI 2019-06-27 11:45:00 28.82 kg/m2 [facility] Body height 2019-06-14 08:36:00 185.4 cm [facility] Systolic blood 2019-05-10 08:04:00 166 mm[Hg] Anato n Yarsani pressure Diastolic blood 2019-05-10 08:04:00 80 mm[Hg] Ravi on Yarsani pressure Heart rate 2019-05-10 08:04:00 93 /min Duncan Steve Body temperature 2019-05-10 08:02:00 35.67 Rima Ana Steve Respiratory rate 2019-05-10 08:02:00 18 /min Ana Steve Body height 2019-05-10 08:02:00 180.3 cm Duncan Steve Body weight 2019-05-10 08:02:00 103.284 kg Duncan Steve BMI 2019-05-10 08:02:00 31.76 kg/m2 Duncan Steve Oxygen saturation in 2019-05-10 08:02:00 99 /min Duncan Steve Arterial blood by Pulse oximetry Procedures Procedure Date / Time Performing Clinician Source Performed RHYTHM STRIP - SCAN 2019-07-04 12:40:46 Provider, [facility] TRANSFUSION SERVICE 2019-06-29 18:00:29 Provider, [facility] RHYTHM STRIP - SCAN 2019-06-29 09:01:23 [facility] - 2019-06-29 [facility]:01[facility] CARDIAC CATH REPORT - 2019-06-29 09:01:16 Provider, [facility] [id number] 2019-06-29 00:00:00 ENCPL [id number] 2019-06-29 00:00:00 ENCPL [id number] 2019-06-29 00:00:00 ENCPL [id number] 2019-06-29 00:00:00 ENCPL [id number] 2019-06-29 00:00:00 ENCPL [id number] 2019-06-29 00:00:00 ENCPL PREPARE LEUKO-REDUCED RBC 2019-06-28 23:54:00 Pepper Hagan [facility] TRANSFUSION SERVICE 2019-06-28 18:00:20 Provider, [facility] POCT-GLUCOSE METER 2019-06-27 12:06:00 Pepper Hagan [facility] HEMODIALYSIS INPATIENT 2019-06-27 11:56:42 Julio Hurst [facility] TRANSFUSE LEUKO-REDUCED 2019-06-27 10:49:[address] [facility] RED BLOOD CELLS [facility] TYPE AND SCREEN, 2019-06-27 08:45:[address] [facility] POCT-GLUCOSE METER 2019-06-27 07:52:00 Cong [facility] Keny [facility] BASIC METABOLIC PANEL (7) 2019-06-27 03:39:00 Pepper Hagan [facility] MAGNESIUM 2019-06-27 03:39:00 Pepper Hagan [facility] PHOSPHORUS 2019-06-27 03:39:00 [facility] W/PLT COUNT & AUTO 2019-06-27 03:39:[address] [facility] POCT-GLUCOSE METER 2019-06-26 20:54:00 Cong [facility] POCT-GLUCOSE METER 2019-06-26 16:40:00 [facility] 2019-06-26 11:38:00 Cong [facility] POCT-GLUCOSE METER 2019-06-26 07:08:00 [facility] (7) 2019-06-26 03:31:00 [facility] 2019-06-26 03:31:00 Pepper Hagan [facility] PHOSPHORUS 2019-06-26 03:31:00 Giselle Haganhal Keny [facility] CBC W/PLT COUNT & AUTO 2019-06-26 03:31:[address] [facility] POCT-GLUCOSE METER 2019-06-25 23:51:00 Cong [facility] POCT-GLUCOSE METER 2019-06-25 21:05:00 Cong [facility] POCT-GLUCOSE METER 2019-06-25 16:41:00 Cong [facility] POCT-GLUCOSE METER 2019-06-25 13:46:00 Pepper Hagan [facility] POCT-GLUCOSE METER 2019-06-25 11:06:00 Pepper Hagan [facility] HEMODIALYSIS INPATIENT 2019-06-25 08:18:33 Marcio HindsWilder [facility] POCT-GLUCOSE METER 2019-06-25 07:47:00 Pepper Hagan [facility] BASIC METABOLIC PANEL (7) 2019-06-25 06:03:00 Pepper Hagan [facility] MAGNESIUM 2019-06-25 06:03:00 Pepper Hagan [facility] PHOSPHORUS 2019-06-25 06:03:00 [facility] W/PLT COUNT & AUTO 2019-06-25 06:03:00 Pepper Hagan [facility] POCT-GLUCOSE METER 2019-06-24 21:30:00 Merchant [facility] POCT-GLUCOSE METER 2019-06-24 16:41:00 Merchant [facility] POCT-GLUCOSE METER 2019-06-24 11:55:00 Merchant [facility] POCT-GLUCOSE METER 2019-06-24 07:52:00 Merchant [facility] CBC W/PLT COUNT & AUTO 2019-06-24 04:28:00 Pepper Hagan [facility] BASIC METABOLIC PANEL (7) 2019-06-24 04:27:00 [facility]UM 2019-06-24 04:27:00 Pepper Hagan [facility] PHOSPHORUS 2019-06-24 04:27:00 [facility]SE METER 2019-06-23 21:43:00 Merchant [facility] POCT-GLUCOSE METER 2019-06-23 16:56:00 Merchant, [facility] POCT-GLUCOSE METER 2019-06-23 11:30:00 Merchant, [facility] POCT-GLUCOSE METER 2019-06-23 07:44:00 Merchant, [facility] BASIC METABOLIC PANEL (7) 2019-06-23 04:58:00 HaganPepper lord [facility] MAGNESIUM 2019-06-23 04:58:00 Hagan, Pepper Bustillo [facility] PHOSPHORUS 2019-06-23 04:58:00 Hagan, [facility] VANCOMYCIN LEVEL, RANDOM 2019-06-23 04:58:00 Joyce Wray [facility] CBC W/PLT COUNT & AUTO 2019-06-23 04:58:00 CongGisellePepper Keny [facility] POCT-GLUCOSE METER 2019-06-22 20:50:00 Merchant, [facility] POCT-GLUCOSE METER 2019-06-22 16:55:00 Merchant, [facility] HEMODIALYSIS INPATIENT 2019-06-22 12:02:34 Marcio Hinds [facility] POCT-GLUCOSE METER 2019-06-22 12:00:00 Merchant, [facility] POCT-GLUCOSE METER 2019-06-22 11:28:00 Merchant, [facility] POCT-GLUCOSE METER 2019-06-22 08:00:00 Merchant, [facility] BASIC METABOLIC PANEL (7) 2019-06-22 04:19:00 Cong Pepper Bustillo [facility] MAGNESIUM 2019-06-22 04:19:00 Hagan Pepper Bustillo [facility] PHOSPHORUS 2019-06-22 04:19:00 Hagan [facility] VANCOMYCIN LEVEL, RANDOM 2019-06-22 04:19:00 Destini Santos [facility] CBC W/PLT COUNT & AUTO 2019-06-22 04:19:[address] [facility] POCT-GLUCOSE METER 2019-06-21 21:27:00 Merchant, [facility] POCT-GLUCOSE METER 2019-06-21 16:51:00 Merchant, [facility] POCT-GLUCOSE METER 2019-06-21 12:08:00 Merchant, [facility] POCT-GLUCOSE METER 2019-06-21 08:07:00 Merchant, [facility] BASIC METABOLIC PANEL (7) 2019-06-21 03:33:00 Pepper Hagan [facility] MAGNESIUM 2019-06-21 03:33:00 HaganPepper lord [facility] PHOSPHORUS 2019-06-21 03:33:00 Hagan, [facility] CBC W/PLT COUNT & AUTO 2019-06-21 03:33:[address] [facility] POCT-GLUCOSE METER 2019-06-20 20:35:00 Merchant, [facility] POCT-GLUCOSE METER 2019-06-20 17:00:00 Merchant, [facility] POCT-GLUCOSE METER 2019-06-20 12:23:00 Merchant, [facility] POCT-GLUCOSE METER 2019-06-20 10:01:00 Merchant, [facility] POCT-GLUCOSE METER 2019-06-20 08:40:00 Merchant, [facility] HEMODIALYSIS INPATIENT 2019-06-20 07:21:04 Wilder Orantes [facility] BASIC METABOLIC PANEL (7) 2019-06-20 04:10:00 Giselle Haganedd Bustillo [facility] MAGNESIUM 2019-06-20 04:10:00 Hagan, [facility] PHOSPHORUS 2019-06-20 04:10:00 Pepper Hagan [facility] VANCOMYCIN LEVEL, RANDOM 2019-06-20 04:10:00 Aicha Kenny [facility] CBC W/PLT COUNT & AUTO 2019-06-20 04:10:00 Pepper Hagan [facility] POCT-GLUCOSE METER 2019-06-19 21:08:00 [facility] XR FOOT 2 VIEWS RIGHT 2019-06-19 17:57:00 Star Mirza [facility] POCT-GLUCOSE METER 2019-06-19 17:01:00 [facility] POCT-GLUCOSE METER 2019-06-19 12:52:00 [facility] POCT-GLUCOSE METER 2019-06-19 11:50:00 [facility] TISSUE EXAM 2019-06-19 11:18:00 Star Mirza [facility] SURGICALLY OBTAINED 2019-06-19 09:50:45 Star Mirza [facility] - CULTURE + GRAM STAIN Medical [address] [facility] ANAEROBIC CULTURE 2019-06-19 09:50:45 Star Mirza [facility] FUNGUS CULTURE + SMEAR 2019-06-19 09:50:45 Star Mirza [facility] [employer] CULTURE + SMEAR 2019-06-19 09:50:45 Star Mirza [facility] (NON-SPUTUM) [facility] SPIN/CONCENTRATION CHARGE 2019-06-19 09:50:00 Star Mirza [facility] AMPUTATION,TOE 2019-06-19 08:30:00 Star Mirza [facility] OSTECTOMY,FOOT/ TOE 2019-06-19 08:30:00 Star Mirza [facility] AMPUTATION,FOOT 2019-06-19 08:30:00 Star Mirza [facility] PROCEDURE W/ SPY ELITE 2019-06-19 08:30:00 Star Mirza [facility] VASCULAR Medical [address] ANGIOGRAPHY ECG 12-LEAD 2019-06-19 07:28:28 Unknown, Hl7 Doctor [facility] POCT-GLUCOSE METER 2019-06-19 07:09:00 Merchant Marko [facility] BASIC METABOLIC PANEL (7) 2019-06-19 04:41:00 HaganPepper [facility] MAGNESIUM 2019-06-19 04:41:00 Hagan, Pepper Bustillo [facility] PHOSPHORUS 2019-06-19 04:41:00 HaganGisellePepper Keny [facility] VANCOMYCIN LEVEL, RANDOM 2019-06-19 04:41:00 Karyna Juarez [facility] CBC W/PLT COUNT & AUTO 2019-06-19 04:41:00 Pepper Hagan [facility] I [facility] POCT-GLUCOSE METER 2019-06-18 21:11:00 Merchant, [facility] POCT-GLUCOSE METER 2019-06-18 17:11:00 Merchant, [facility] POCT-GLUCOSE METER 2019-06-18 11:50:00 Merchant, [facility] POCT-GLUCOSE METER 2019-06-18 10:22:00 [facility] HEMODIALYSIS INPATIENT 2019-06-18 07:07:00 Trudy Stevens [facility] BASIC METABOLIC PANEL (7) 2019-06-18 03:48:00 HaganPepper lord [facility] MAGNESIUM 2019-06-18 03:48:00 HaganGisellePepper Keny [facility] PHOSPHORUS 2019-06-18 03:48:00 [facility]Giselle [facility] VANCOMYCIN LEVEL, TROUGH 2019-06-18 03:48:00 Bang Starkey [facility] CBC W/PLT COUNT & AUTO 2019-06-18 03:48:00 Pepper Hagan [facility] POCT-GLUCOSE METER 2019-06-17 20:46:00 Shanda [facility] POCT-GLUCOSE METER 2019-06-17 17:16:00 Gadevita [facility] POCT-GLUCOSE METER 2019-06-17 12:23:00 Shanda [facility] POCT-GLUCOSE METER 2019-06-17 08:39:00 Gadicherfransisco [facility] BASIC METABOLIC PANEL (7) 2019-06-17 04:51:00 Pepper Hagan Keny [facility] MAGNESIUM 2019-06-17 04:51:00 Pepper Hagan Keny [facility] PHOSPHORUS 2019-06-17 04:51:00 Giselle Haganhal Keny [facility] CBC W/PLT COUNT & AUTO 2019-06-17 04:51:00 Pepper Hagan [facility] POCT-GLUCOSE METER 2019-06-16 21:25:00 [facility] 2019-06-16 17:50:22 Lisa Velasquez [facility] POCT-GLUCOSE METER 2019-06-16 16:33:[facility] 2019-06-16 11:50:00 [facility] POCT-GLUCOSE METER 2019-06-16 08:06:00 [facility] BASIC METABOLIC PANEL (7) 2019-06-16 04:49:00 Pepper Hagan [facility] MAGNESIUM 2019-06-16 04:49:00 Pepper Hagan [facility] PHOSPHORUS 2019-06-16 04:49:00 Cong [facility] VANCOMYCIN LEVEL, RANDOM 2019-06-16 04:49:00 Karyna Juarez [facility] CBC W/PLT COUNT & AUTO 2019-06-16 04:49:00 Hagan, Pepper Bustillo I [facility] (CELLAVISION MANUAL DIFF) 2019-06-16 04:49:00 HaganPepper [facility] PERIPHERAL VASCULAR 2019-06-15 21:11:38 ProviderLisa [facility] REPORT - SCAN Scanning [facility] POCT-GLUCOSE METER 2019-06-15 21:07:00 Gadicheria [facility] POCT-GLUCOSE METER 2019-06-15 17:11:00 Gadicheria, [facility] POCT-GLUCOSE METER 2019-06-15 13:57:00 Gadicheria, [facility] POCT-ACT 2019-06-15 12:21:00 [facility] PERIPHERAL ANGIOS / 2019-06-15 10:27:00 Clark Danielle [facility] AORTOGRAM [facility] ABORH, MANUAL 2019-06-15 09:53:00 Mohini Hi [facility] HEMODIALYSIS INPATIENT 2019-06-15 07:34:58 Trudy Stevens [facility] BASIC METABOLIC PANEL (7) 2019-06-15 04:07:00 Pepper Hagan [facility] MAGNESIUM 2019-06-15 04:07:00 Pepper Hagan [facility] PHOSPHORUS 2019-06-15 04:07:00 Pepper Hagan [facility] HEPATITIS B SURFACE 2019-06-15 04:07:[address] [facility] ANTIGEN [facility] TYPE AND SCREEN, 2019-06-15 04:07:00 Madelyn Kay [facility] s - AUTOMATED [facility] CBC W/PLT COUNT & AUTO 2019-06-15 04:07:[address] [facility] POCT-GLUCOSE METER 2019-06-14 22:19:00 Hagan, [facility] POCT-GLUCOSE METER 2019-06-14 21:18:00 Cong [facility] POCT-GLUCOSE METER 2019-06-14 16:41:00 Cong [facility] BASIC METABOLIC PANEL (7) 2019-06-14 15:12:00 Cong [facility] MAGNESIUM 2019-06-14 15:12:00 Hagan, [facility] PHOSPHORUS 2019-06-14 15:12:00 Hagan, [facility] CBC W/PLT COUNT & AUTO 2019-06-14 15:12:00 Giselle Haganhal Keny [facility] XR FOOT RIGHT 3 VIEW 2019-06-14 13:57:[address] [facility] ARTERIAL DOPPLER LEG, 2019-06-14 12:36:00 Christiano Davis [facility] POCT-GLUCOSE METER 2019-06-14 12:06:00 Cong [facility] PV ARTERIAL ANDREA 2019-06-14 10:39:00 Christiano Davis [facility] POCT-GLUCOSE METER 2019-06-14 09:16:00 Cong [facility] URINE CULTURE 2019-05-10 08:10:00 Vivi, Sonal Steve COMPREHENSIVE METABOLIC 2019-05-10 08:10:00 Vivi, Sonal Steve PANEL URINALYSIS SCREEN AND 2019-05-10 08:10:00 Vivi, Sonal Steve MICROSCOPY, WITH REFLEX TO CULTURE HC COMPLETE BLD COUNT 2019-05-10 08:10:00 Vivi, Sonal Steve W/AUTO DIFF PROTHROMBIN TIME WITH INR 2019-05-10 08:10:00 Vivi, Sonal Steve PARTIAL THROMBOPLASTIN 2019-05-10 08:10:00 Vivi, Sonal Patist TIME (PTT) ESTIMATED GFR 2019-05-10 08:10:00 Sonal Trinidad Venus Steve OCCULT BLOOD, STOOL 2019-05-09 15:35:00 Vivi, Sonal Venus Steve OCCULT BLOOD, STOOL 2019-05-08 10:00:00 Sonal Trinidad Venus Patist ANAEROBIC CULTURE 2018-10-24 17:00:00 Abraham Malave Kalachjean carlos GRAM STAIN 2018-10-24 17:00:00 Abraham Malave Kalachand AEROBIC CULTURE 2018-10-24 17:00:00 Abraham Malave XR CHEST 2 VW 2018-10-24 12:38:02 Abraham Malave Kalachand POC GLUCOSE 2018-09-27 13:10:00 Abraham Malave Kalachand POC GLUCOSE 2018-09-27 12:43:00 Abraham Malave Kalachand POC GLUCOSE 2018-09-27 08:42:00 Abraham Malave Kalachand POC GLUCOSE 2018-09-27 07:19:00 Abraham Malave Kalachand HC COMPLETE BLD COUNT 2018-09-27 05:15:00 Berenice Yousif W/AUTO DIFF BASIC METABOLIC PANEL 2018-09-27 04:00:00 GerardoBerenice mooney ESTIMATED GFR 2018-09-27 04:00:00 JinnyJennifer garciabessy Song Me thodist HEMODIALYSIS 2018-09-27 00:06:02 Deniz Correa Meth odist POC GLUCOSE 2018-09-26 20:50:00 Abraham Malave Kalachand POC GLUCOSE 2018-09-26 16:56:00 Abraham Maalve Kalachand POC GLUCOSE 2018-09-26 11:44:00 Abraham Malave Kalachand TYPE AND SCREEN 2018-09-26 08:00:00 Ting Angelo Meth odist PREPARE RBC 2018-09-26 08:00:00 Ting Angelo Meth odist POC GLUCOSE 2018-09-26 07:38:00 Abraham Malaveist Kalachand HC COMPLETE BLD COUNT 2018-09-26 05:30:00 Berenice Yousif Yarsani W/AUTO DIFF SMEAR REVIEW 2018-09-26 05:30:00 Berenice Yousif Me thodist BASIC METABOLIC PANEL 2018-09-26 04:00:00 Berenice Yousif Yarsani ESTIMATED GFR 2018-09-26 04:00:00 Berenice Yousif La thodist POC GLUCOSE 2018-09-25 22:55:00 AnandaAbraham Kalachand POC GLUCOSE 2018-09-25 21:08:00 Abraham Malave Kalachand POC GLUCOSE 2018-09-25 18:01:00 Abraham Malave Kalachand ECG 12-LEAD 2018-09-25 17:48:36 Baudilio Beck Meth odist TTE COMPLETE, WO 2018-09-25 17:30:03 Ting Angelo Met hodist CONTRAST, W DOPPLER ([id number]) BASIC METABOLIC PANEL 2018-09-25 14:38:00 Berenice Yousif Yarsani ESTIMATED GFR 2018-09-25 14:38:00 Berenice Yousif La thodist POC GLUCOSE 2018-09-25 14:08:00 Ananda Abrahamlisa Steve Kalachand HC COMPLETE BLD COUNT 2018-09-25 11:32:00 Berenice Yousif Yarsani W/AUTO DIFF SMEAR REVIEW 2018-09-25 11:32:00 Berenice Yousif La thodist HEMODIALYSIS 2018-09-25 09:08:15 PricegerardoThierno Meth odist Mookie POC GLUCOSE 2018-09-25 07:38:00 Abraham Malave Yarsani Kal[place]and POC GLUCOSE 2018-09-24 21:04:00 Abraham Malave Yarsani Kal[place] POC GLUCOSE 2018-09-24 17:20:00 Abraham Malave Yarsani [place] POC GLUCOSE 2018-09-24 11:53:00 Abraham Malave Kalachand ECG 12-LEAD 2018-09-24 09:26:10 Baudilio Beck Meth odist POC GLUCOSE 2018-09-24 07:34:00 Abraham Malave Kalachjean carlos BASIC METABOLIC PANEL 2018-09-24 05:15:00 Baudilio Beck Yarsani CBC HEMOGRAM 2018-09-24 05:15:00 Baudilio Beck Meth odist MAGNESIUM LEVEL 2018-09-24 05:15:00 Baudilio Beck Meth odist IONIZED CALCIUM 2018-09-24 05:15:00 Baudilio Beck odist ESTIMATED GFR 2018-09-24 05:15:00 Baudilio Beck Meth odist POC GLUCOSE 2018-09-23 21:08:00 Abraham Malave Kalachand POC GLUCOSE 2018-09-23 17:35:00 Abraham Malave Kalachand POC GLUCOSE 2018-09-23 11:34:00 Abraham Malave XR CHEST 1 VW PORTABLE 2018-09-23 10:49:43 Baudilio Beck on Yarsani LINE/DRAIN REMOVAL 2018-09-23 10:25:46 Baudilio Beck ethodist POC GLUCOSE 2018-09-23 09:14:00 Abraham Malave HEPATITIS B SURFACE 2018-09-23 08:41:00 Jatinder Farrar Yarsani ANTIGEN HEMODIALYSIS 2018-09-23 07:29:22 Thierno Rizo Mookie XR CHEST 1 VW PORTABLE 2018-09-23 06:44:02 Benigno Jay [facility] 12-LEAD 2018-09-23 05:29:05 Baudilio Beck Meth odist POC GLUCOSE 2018-09-23 04:02:00 Abraham Malave Kalachand CBC HEMOGRAM 2018-09-23 01:35:00 Baudilio Beck Meth odist BASIC METABOLIC PANEL 2018-09-23 01:35:00 Baudilio Beck Yarsani MAGNESIUM LEVEL 2018-09-23 01:35:00 Baudilio Beck Meth odist IONIZED CALCIUM 2018-09-23 01:35:00 Benigno Jay Met hodist [facility] PARTIAL THROMBOPLASTIN 2018-09-23 01:35:00 Benigno Jay Yarsani TIME (PTT) [facility] PHOSPHORUS LEVEL 2018-09-23 01:35:00 Benigno Jay Me thodist [facility] PROTHROMBIN TIME WITH INR 2018-09-23 01:35:00 Benigno Jay [place] [facility] ESTIM[facility] GFR 2018-09-23 01:35:00 Benigno Jay Met [facility]odist [facility] POC GLUCOSE 2018-09-22 23:40:00 Abraham Malaveist Kalachand POC GLUCOSE 2018-09-22 19:46:00 Abraham Malave Kalachand POTASSIUM LEVEL 2018-09-22 18:00:00 Baudilio Beck Meth odist POC GLUCOSE 2018-09-22 16:19:00 Abraham Malave Kalachand ECG 12-LEAD 2018-09-22 14:07:34 Baudilio Beck Meth odist XR CHEST 1 VW PORTABLE 2018-09-22 13:16:05 Baudilio Beck on Yarsani BASIC METABOLIC PANEL 2018-09-22 13:05:00 Baudilio Beck HC COMPLETE BLD COUNT 2018-09-22 13:05:00 Baudilio Beck Yarsani W/AUTO DIFF MAGNESIUM LEVEL 2018-09-22 13:05:00 Baudilio Beck Meth odist PHOSPHORUS LEVEL 2018-09-22 13:05:00 Baudilio Beck hodist PROTHROMBIN TIME WITH INR 2018-09-22 13:05:00 Baudilio Beck Yarsani PARTIAL THROMBOPLASTIN 2018-09-22 13:05:00 Baudilio Beck on Yarsani TIME (PTT) ARTERIAL BLOOD GAS 2018-09-22 13:05:00 Baudilio Beck M ethodist ESTIMATED GFR 2018-09-22 13:05:00 Abraham Malaveist Kalachand IONIZED CALCIUM, ARTERIAL 2018-09-22 13:05:00 Yuly Malave Kalachand POC GLUCOSE 2018-09-22 12:57:00 Abraham Malave Kalachand ACTIVATED CLOTTING TIME 2018-09-22 11:53:00 AnandaAbraham so Yarsani Kal[place]and IONIZED CALCIUM, ARTERIAL 2018-09-22 11:35:00 Yuly Malave Yarsani [place] GLUCOSE LEVEL, SYRINGE 2018-09-22 11:35:00 Abraham Malave Yarsani [place] HEMOGLOBIN, SYRINGE 2018-09-22 11:35:00 Abraham Malave Yarsani Kal[place]and POTASSIUM, SYRINGE 2018-09-22 11:35:00 Abraham Malave on Yarsani Kalachand SODIUM LEVEL, SYRINGE 2018-09-22 11:35:00 Abraham Malave Yarsani [place] ARTERIAL BLOOD GAS, 2018-09-22 11:35:00 Abraham Malave Yarsani CORRECTED Kalachand ACTIVATED CLOTTING TIME 2018-09-22 11:34:00 Abraham Malave Yarsani [place]and GLUCOSE LEVEL, SYRINGE 2018-09-22 10:59:00 Abraham Malave Yarsani Kal[place]and IONIZED CALCIUM, ARTERIAL 2018-09-22 10:59:00 Yuly Malave Yarsani [place]and POTASSIUM, SYRINGE 2018-09-22 10:59:00 Abraham Malave on Yarsani Kal[place]and MAGNESIUM LEVEL 2018-09-22 10:59:00 Abraham Malave Yarsani [place] SODIUM LEVEL, SYRINGE 2018-09-22 10:59:00 Abraham Malaveton Yarsani Kal[place]and ARTERIAL BLOOD GAS, 2018-09-22 10:59:00 Abraham Malave Yarsani CORRECTED Kalachand HEMOGLOBIN & HEMATOCRIT 2018-09-22 10:59:00 Abraham Malave Kalachand PLATELET COUNT 2018-09-22 10:59:00 Abraham Malave Kalachand PROTHROMBIN TIME WITH INR 2018-09-22 10:59:00 Yuly Malave Kalachjean carlos FIBRINOGEN 2018-09-22 10:59:00 Abraham Malave Kalachand ACTIVATED CLOTTING TIME 2018-09-22 10:56:00 Abraham Malave Kalachjean carlos TRANSFUSE RED BLOOD CELLS 2018-09-22 10:44:44 León Byrne Aron ARTERIAL BLOOD GAS, 2018-09-22 10:32:00 Abraham Malave Yarsani CORRECTED Kal[place]and SODIUM LEVEL, SYRINGE 2018-09-22 10:32:00 Abraham Malave Yarsani [place] HEMOGLOBIN, SYRINGE 2018-09-22 10:32:00 Abraham Malave Yarsani [place] POTASSIUM, SYRINGE 2018-09-22 10:32:00 Abraham Malave on Yarsani Kal[place]and GLUCOSE LEVEL, SYRINGE 2018-09-22 10:32:00 Abraham Malave Kalachand IONIZED CALCIUM, ARTERIAL 2018-09-22 10:32:00 Yuly Malave Kalachand ACTIVATED CLOTTING TIME 2018-09-22 10:32:00 Abraham Malave Kalachand ACTIVATED CLOTTING TIME 2018-09-22 10:04:00 Abraham Malave Kalachand ANESTHESIA ROGER 2018-09-22 08:52:27 León Byrne Met hodist Aron PA CATHETER 2018-09-22 08:26:40 Urvashi Franz Met chao ARTERIAL BLOOD GAS, 2018-09-22 08:20:00 Abraham Malave Yarsani CORRECTED Kal[place]and SODIUM LEVEL, SYRINGE 2018-09-22 08:20:00 Abraham Malave Yarsani [place] POTASSIUM, SYRINGE 2018-09-22 08:20:00 Abraham Malave on Yarsani Kal[place]and HEMOGLOBIN, SYRINGE 2018-09-22 08:20:00 Abraham Malave Yarsani [place] IONIZED CALCIUM, ARTERIAL 2018-09-22 08:20:00 Yuly Malave Yarsani [place] GLUCOSE LEVEL, SYRINGE 2018-09-22 08:20:00 Abraham Malave ACTIVATED CLOTTING TIME 2018-09-22 08:14:00 Abraham Malave CENTRAL LINE 2018-09-22 08:09:51 León Byrne Met chao Aron ARTERIAL LINE 2018-09-22 07:51:16 Urvashi Franz Met chao NC AN ELECTIVE 2018-09-22 07:50:21 Urvashi Franz Met chao ENDOTRACHEAL AIRWAY ECG 12-LEAD 2018-09-22 07:14:47 Abraham Malave POC GLUCOSE 2018-09-22 07:06:00 Abraham Malave SODIUM LEVEL, SYRINGE 2018-09-22 07:02:00 Abraham Malave POTASSIUM, SYRINGE 2018-09-22 07:02:00 Abraham Malave on [employer] GLUCOSE LEVEL, SYRINGE 2018-09-22 07:02:00 Abraham Malave PREPARE RBC 2018-09-22 06:27:00 Abraham Malave SPIROMETRY, DIFFUSION, 2018-09-08 14:20:37 Abraham Malave LUNG VOLUMES Sarabjit Plan of Care Planned Activity Planned Date Details Comments Source Future Scheduled 2019-10-06 INFLUENZA VACCINE [place] [facility] 00:00:00 [code = INFLUENZA VACCINE] Future Scheduled 2009-11-11 COLONOSCOPY SCREENING Ramesh wilson Yarsani Test 00:00:00 [code = COLONOSCOPY SCREENING] Future Scheduled 2009-11-11 SHINGLES VACCINES (#1) H moustapha Y[facility]ani Test 00:00:00 [code = SHINGLES VACCINES (#1)] Future Scheduled 1969-11-11 DIABETIC FOOT EXAM [place] [facility] Test 00:00:00 [code = DIABETIC FOOT EXAM] Future Scheduled 1969-11-11 URINE MICROALBUMIN [place] [facility] Test 00:00:00 [code = URINE MICROALBUMIN] Future Scheduled 1959 DIABETIC RETINAL EYE [place] [facility] Test 00:00:00 EXAM [code = DIABETIC RETINAL EYE EXAM] Encounters Start End Encounter Admission Attending Care Care Encounter Source Date/Time Date/Time Type Type Clinicians Facility Department ID 2019-08-21 2019-08-21 Office RYAN Mirza [id number] 16:46:14 16:46:14 Visit Star Bean AMBULATOR 350.1.13.21 Y 0.2.7.2.686 [id number] 2019-08-07 2019-08-07 Office RYAN Mirza [id number] 13:10:09 16:34:44 Visit Star Bean AMBULATOR 350.1.13.21 Y 0.2.7.2.686 [id number] 2019-07-24 2019-07-24 Office RAYN Mirza [id number] 13:35:06 14:05:03 Visit Star Bean AMBULATOR 350.1.13.21 Y 0.2.7.2.686 [id number] 2019-07-17 2019-07-17 Office RYAN Danielle [id number] 11:22:05 16:23:11 Visit Clark Wilson AMBULATOR 350.1.13.21 Y 0.2.7.2.686 [id number] 2019-07-10 2019-07-10 Office RYAN Mirza [id number] 15:58:34 16:52:46 Visit Star Bean AMBULATOR 350.1.13.21 Y 0.2.7.2.686 [id number] 2019-05-10 2019-05-10 Outpatient [facility] [id number] [place] 00:00:00 00:00:[address] SONAL [address] 2019-05-10 2019-05-10 Outpatient [facility] [id number] [place] 00:00:00 00:00:00 SONAL [address] 2019-05-09 2019-05-09 Outpatient [facility] [id number] [address] [place] [address] 00:00:00 00:00:00 SONAL [address] 2019-05-08 2019-05-08 Outpatient [facility] [id number] [place] 00:00:00 00:00:00 SONAL [address] 2018-09-08 2018-09-08 Outpatient [facility] [id number] [place] 00:00:00 00:00:00 , ABRAHAM Alanis Metho [facility] Results Test Description Test Time Test Comments Results Result Comments Source AFB culture + smear (non-sputum) 2019-08-01 12:08:00 Test Item Value Reference Range Interpretation Comme nts Result (test code = 6463-4) No acid-fast bacilli isolated in 42 day s AFB Smear (test code = 55425-2) No acid fast bacilli seen [facility]NON-SPUTUM)2019-08-01 12:08:00 Test Item Value Reference Range Interpretation Comments CULTURE (BEAKER) (test No acid-fast bacilli code = 1095) isolated in 42 days AFB SMEAR (BEAKER) No acid fast bacilli (test code = 994) seen Fungus culture + [id number] 17:59:00 Test Item Value Reference Range Interpretation Comments Result (test code = No fungus isolated in 6463-4) 28 days Fungus Smear (test No fungal elements seen code = 1406) [facility] + [id number] 17:59:00 Test Item Value Reference Range Interpretation Comments CULTURE (BEAKER) (test No fungus isolated in code = 1095) 28 days FUNGUS SMEAR (BEAKER) No fungal elements seen (test code = 1406) Prepare Leuko-Red [id number] 23:54:00 Test Item Value Reference Range Interpretation Comments CROSSMATCH (test code = 2264) COMPATIBLE Unit ABO (test code = O Pos 9335778) UNIT NUMBER (test code = [id number] 934-0) Status (test code = 3340051) TX_TIMEINCHART Blood Bank Product (test code RED BLOOD CELLS = 2263) PRODUCT CODE (test code = L4567B39 933-2) [facility] [id number] 12:17:00 Test Item Value Reference Range Interpretation Comments POC-Glucose Meter (test 159 mg/dL 70-110 H : TE STED AT [facility] code = 1538) [address] [facility], 770 30: Paving Block Cutter/Techni estefani ID = [id number] for BLESSING PARTIDA Lab Interpretation (test Abnormal code = 18830-7) [facility] [id number] 12:17:00 Test Item Value Reference Range Interpretation Comments POC-GLUCOSE METER 159 mg/dL 70-110 H : TESTED A T [facility] 6720 (BEAKER) (test code = DASIA Garcia [facility], 1538) [address]: Paving Block Cutter/Techni estefani ID = [id number] for BLESSING TUTTLE HEMODIALYSIS [id number] 11:56:42SaIzaiah Alcocer, SUNITA 06/27/2019 11:57 AMHD x 3.5 hrs per pt requested. UF net removed 2.5L. 1 unitprbc transfused. Tolerated treatment well. Not in distress. Seen by Dr. Stevens and Dr. Hurst during HD and updated on patient's condition and requests. Report given to primary RN Gloria. Lab Results Component Value Date WBC 11.2 (H) 06/27/2019 HGB 7.0 (L) 06/27/2019 HCT 23.5 (L) 06/27/2019 MCV 93.6 (H) 06/27/2019 PLT 393 06/27/2019 Lab Results Component Value Date GLUCOSE 168 (H) 06/27/2019 CA LCIUM 7.7 (L) 06/27/2019 NA 132 (L) 06/27/2019 K 4.4 06/27/2019 CO2 28 06/27/2019 CL 94 (L) 06/27/2019 BUN 48 (H) 06/27/2019 CREATININE 9.99 (H) 06/27/2019 Lab Results Component Value Date HEPBSAG Nonreactive 06/15/2019 ]No results found for: HEPAIGM, HEPBIGM, HEPBCAB, HBEAG, HEPCABNo results found for: DKB0R1Wkcm Profile: No results found for: PROTIME, INR, [facility]TReg[facility] JoseType and screen, [id number] 09:43:00 Test Item Value Reference Range Interpretation Comments ABO/RH AUTOMATED (BEAKER) (test O POSITIVE code = 2260) Ab Scrn (test code = 890-4) NEGATIVE [facility] [id number] 08:03:00 Test Item Value Reference Range Interpretation Comments POC-GLUCOSE METER 119 mg/dL 70-110 H : TESTED A T [facility] 6720 (BEAKER) (test code = DASIA SONG [place], 1538) [address]: Paving Block Cutter/Techni estefani ID = [id number] for Izaiah Barber Basic metabolic [id number] 05:28:00 Test Item Value Reference Range Interpretation Comments Sodium (test code = 132 meq/L 136-145 L 2951-2) Potassium (test code = 4.4 meq/L 3.5-5.1 2823-3) Chloride (test code = 94 meq/L 98-107 L 2075-0) CO2 (test code = 28 meq/L -29 2028-9) BUN (test code = 48 mg/dL 7-21 H 3094-0) Creatinine (test code 9.99 mg/dL 0.57-1.25 H = 2160-0) Glucose (test code = 168 mg/dL 70-105 H 2345-7) Calcium (test code = 7.7 mg/dL 8.4-10.2 L 21644-2) EGFR (test code = 5 mL/min/1.73 [place] [address]-8) NOT ACCURATE CREATININE CLEARANCE IN PREDICTING GLOMERULAR FILTRATION RATE . ESTIMATED GFR I S NOT APPLICABLE FOR DIALYSIS PATIENTS. MITCHELL (test code = MITCHELL) Paving Block Cutter ID - JAQUELINE M Lab Interpretation Abnormal (test code = 13608-5) [facility] METABOLIC [id number] 05:28:00 Test Item Value Reference Range Interpretation Comments SODIUM (BEAKER) 132 meq/L 136-145 L (test code = 381) POTASSIUM (BEAKER) 4.4 meq/L 3.5-5.1 (test code = 379) CHLORIDE (BEAKER) 94 meq/L 98-107 L (test code = 382) CO2 (BEAKER) (test 28 meq/L -29 code = 355) BLOOD UREA NITROGEN 48 mg/dL 7-21 H (BEAKER) (test code = 354) CREATININE (BEAKER) 9.99 mg/dL 0.57-1.25 H (test code = 358) GLUCOSE RANDOM 168 mg/dL 70-105 H (BEAKER) (test code = 652) CALCIUM (BEAKER) 7.7 mg/dL 8.4-10.2 L (test code = 697) EGFR (BEAKER) (test 5 mL/min/1.73 ESTIMAT ED GFR IS code = 1092) sq m NOT ACCURATE CREATININE CLEARANCE IN PREDICTING GLOMERULAR FILTRATION RATE . ESTIMATED GFR I S NOT APPLICABLE FOR DIALYSIS PATIEN TS. Paving Block Cutter ID - JAQUELINE [id number] 05:26:00 Test Item Value Reference Range Interpretation Comments Magnesium (test code = 2.5 mg/dL 1.6-2.6 55069-7) MITCHELL (test code = MITCHELL) Paving Block Cutter ID - JAQUELINE M Lab Interpretation (test Normal code = 93878-7) [facility]2020-04-22 05:26:00 Test Item Value Reference Range Interpretation Comments Phosphorus (test code = 6.1 mg/dL 2.3-4.7 H 2777-1) MITCHELL (test code = MITCHELL) Paving Block Cutter ID - JAQUELINE M Lab Interpretation (test Abnormal code = 82211-1) [facility]2020-04-22 05:26:00 Test Item Value Reference Range Interpretation Comments PHOSPHORUS (BEAKER) (test code = 6.1 mg/dL 2.3-4.7 H 604) Paving Block Cutter ID - JAQUELINE [id number] 05:26:00 Test Item Value Reference Range Interpretation Comments MAGNESIUM (BEAKER) (test code = 2.5 mg/dL 1.6-2.6 627) Paving Block Cutter ID Benjie PARSONS MCBC with platelet count + automated [id number] 05:12:00 Test Item Value Reference Range Interpretation Comments WBC (test code = 6690-2) 11.2 3.5- 10.5 K/L H RBC (test code = 789-8) 2.51 4.63- 6.08 M/L L MCHC (test code = 786-4) 29.8 32.3- 36.5 GM/DL L Hematocrit (test code = 4544-3) 23.5 % 40.1-51 L MCV (test code = 787-2) 93.6 fL 79-92.2 H MCH (test code = 785-6) 27.9 pg 25.7-32.2 RDW (test code = 788-0) 14.2 % 11.6-14.4 Platelets (test code = 777-3) 393 150- 450 K/CU MM MPV (test code = 84257-0) 9.6 fL 9.4-12.4 nRBC (test code = 413) 0 0- 0 /100 WBC % Neutros (test code = 429) 70 % % Lymphs (test code = 430) 11 % % Monos (test code = 431) 13 % % Eos (test code = 432) 3 % % Baso (test code = 437) 1 % # Neutros (test code = 670) 7.84 1.78- 5.38 K/L H # Lymphs (test code = 414) 1.24 1.32- 3.57 K/L L # Monos (test code = 415) 1.49 0.30- 0.82 K/L H # Eos (test code = 416) 0.35 0.04- 0.54 K/L # Baso (test code = 417) 0.12 0.01- 0.08 K/L H Immature Granulocytes-Relative 1 % 0-1 (test code = 2801) Lab Interpretation (test code = Abnormal 48706-7) [facility] W/PLT COUNT & AUTO [id number] 05:12:00 Test Item Value Reference Range Interpretation Comments WHITE BLOOD CELL COUNT (BEAKER) 11.2 K/ L 3.5-10.5 H (test code = 775) RED BLOOD CELL COUNT (BEAKER) 2.51 M/ L 4.63-6.08 L (test code = 761) HEMOGLOBIN (BEAKER) (test code = 7.0 GM/DL 13.7-17.5 L 410) HEMATOCRIT (BEAKER) (test code = 23.5 % 40.1-51.0 L 411) MEAN CORPUSCULAR VOLUME (BEAKER) 93.6 fL 79.0-92.2 H (test code = 753) MEAN CORPUSCULAR HEMOGLOBIN 27.9 pg 25.7-32.2 (BEAKER) (test code = 751) MEAN CORPUSCULAR HEMOGLOBIN CONC 29.8 GM/DL 32.3-36.5 L (BEAKER) (test code = 752) RED CELL DISTRIBUTION WIDTH 14.2 % 11.6-14.4 (BEAKER) (test code = 412) PLATELET COUNT (BEAKER) (test 393 K/CU MM 150-450 code = 756) MEAN PLATELET VOLUME (BEAKER) 9.6 fL 9.4-12.4 (test code = 754) NUCLEATED RED BLOOD CELLS 0 /100 WBC 0-0 (BEAKER) (test code = 413) NEUTROPHILS RELATIVE PERCENT 70 % (BEAKER) (test code = 429) LYMPHOCYTES RELATIVE PERCENT 11 % (BEAKER) (test code = 430) MONOCYTES RELATIVE PERCENT 13 % (BEAKER) (test code = 431) EOSINOPHILS RELATIVE PERCENT 3 % (BEAKER) (test code = 432) BASOPHILS RELATIVE PERCENT 1 % (BEAKER) (test code = 437) NEUTROPHILS ABSOLUTE COUNT 7.84 K/ L 1.78-5.38 H (BEAKER) (test code = 670) LYMPHOCYTES ABSOLUTE COUNT 1.24 K/ L 1.32-3.57 L (BEAKER) (test code = 414) MONOCYTES ABSOLUTE COUNT (BEAKER) 1.49 K/ L 0.30-0.82 H (test code = 415) EOSINOPHILS ABSOLUTE COUNT 0.35 K/ L 0.04-0.54 (BEAKER) (test code = 416) BASOPHILS ABSOLUTE COUNT (BEAKER) 0.12 K/ L 0.01-0.08 H (test code = 417) IMMATURE GRANULOCYTES-RELATIVE 1 % 0-1 PERCENT (BEAKER) (test code = 2801) POCT-GLUCOSE [id number] 21:05:00 Test Item Value Reference Range Interpretation Comments POC-GLUCOSE METER 250 mg/dL 70-110 H : TESTED A T [facility] 6720 (BEAKER) (test code = [facility], 1538) 25999: Paving Block Cutter/Techni estefani ID = [id number] for BRADEN RANKINO POCT-GLUCOSE [id number] 16:53:00 Test Item Value Reference Range Interpretation Comments POC-GLUCOSE METER 217 mg/dL 70-110 H : TESTED A T [facility] 6720 (BEAKER) (test code = [facility], 1538) 09815: Paving Block Cutter/Techni estefani ID = [id number] for ENOCH NTER, ESTEFANYWITHA POCT-GLUCOSE [id number] 11:50:00 Test Item Value Reference Range Interpretation Comments POC-GLUCOSE METER 208 mg/dL 70-110 H : TESTED A T [facility] 6720 (BEAKER) (test code = DAS[facility] Garcia [facility], 1538) 60257: Paving Block Cutter/Techni estefani ID = [id number] for ZOILA SILVA Anaerobic [id number] 10:57:00 Test Item Value Reference Range Interpretation Comments Result (test code = 4+ Prevotella bivia A 6463-4) Lab Interpretation (test Abnormal code = 15904-9) [facility] [id number] 10:57:00 Test Item Value Reference Range Interpretation Comments CULTURE (BEAKER) (test code A 4+ Prevotella bivia = 1095) POCT-GLUCOSE [id number] 07:24:00 Test Item Value Reference Range Interpretation Comments POC-GLUCOSE METER 231 mg/dL 70-110 H : TESTED A T [facility] 6720 (BEAKER) (test code = [facility] [place], 1538) [address]: Paving Block Cutter/Techni estefani ID = [id number] for ENOCH WILLSON, ESTEFANYWITHA BASIC METABOLIC [id number] 04:18:00 Test Item Value Reference Range Interpretation Comments SODIUM (BEAKER) 132 meq/L 136-145 L (test code = 381) POTASSIUM (BEAKER) 4.4 meq/L 3.5-5.1 (test code = 379) CHLORIDE (BEAKER) 95 meq/L 98-107 L (test code = 382) CO2 (BEAKER) (test 26 meq/L 22-29 code = 355) BLOOD UREA NITROGEN 33 mg/dL 7-21 H (BEAKER) (test code = 354) CREATININE (BEAKER) 7.97 mg/dL 0.57-1.25 H (test code = 358) GLUCOSE RANDOM 284 mg/dL 70-105 H (BEAKER) (test code = 652) CALCIUM (BEAKER) 8.0 mg/dL 8.4-10.2 L (test code = 697) EGFR (BEAKER) (test 7 mL/min/1.73 ESTIMAT ED GFR IS code = 1092) sq m NOT ACCURATE CREATININE CLEARANCE IN PREDICTING GLOMERULAR FILTRATION RATE . ESTIMATED GFR I S NOT APPLICABLE FOR DIALYSIS PATIEN TS. Paving Block Cutter ID - BASSEM [id number] 04:17:00 Test Item Value Reference Range Interpretation Comments PHOSPHORUS (BEAKER) (test code = 5.1 mg/dL 2.3-4.7 H 604) Paving Block Cutter ID - BASSEM [id number] 04:17:00 Test Item Value Reference Range Interpretation Comments MAGNESIUM (BEAKER) (test code = 2.4 mg/dL 1.6-2.6 627) Paving Block Cutter ID - BASSEM WCBC W/PLT COUNT & AUTO [id number] 04:17:00 Test Item Value Reference Range Interpretation Comments WHITE BLOOD CELL COUNT (BEAKER) 11.7 K/ L 3.5-10.5 H (test code = 775) RED BLOOD CELL COUNT (BEAKER) 2.67 M/ L 4.63-6.08 L (test code = 761) HEMOGLOBIN (BEAKER) (test code = 7.8 GM/DL 13.7-17.5 L 410) HEMATOCRIT (BEAKER) (test code = 25.1 % 40.1-51.0 L 411) MEAN CORPUSCULAR VOLUME (BEAKER) 94.0 fL 79.0-92.2 H (test code = 753) MEAN CORPUSCULAR HEMOGLOBIN 29.2 pg 25.7-32.2 (BEAKER) (test code = 751) MEAN CORPUSCULAR HEMOGLOBIN CONC 31.1 GM/DL 32.3-36.5 L (BEAKER) (test code = 752) RED CELL DISTRIBUTION WIDTH 14.1 % 11.6-14.4 (BEAKER) (test code = 412) PLATELET COUNT (BEAKER) (test 411 K/CU MM 150-450 code = 756) MEAN PLATELET VOLUME (BEAKER) 9.5 fL 9.4-12.4 (test code = 754) NUCLEATED RED BLOOD CELLS 0 /100 WBC 0-0 (BEAKER) (test code = 413) NEUTROPHILS RELATIVE PERCENT 78 % (BEAKER) (test code = 429) LYMPHOCYTES RELATIVE PERCENT 5 % (BEAKER) (test code = 430) MONOCYTES RELATIVE PERCENT 13 % (BEAKER) (test code = 431) EOSINOPHILS RELATIVE PERCENT 2 % (BEAKER) (test code = 432) BASOPHILS RELATIVE PERCENT 1 % (BEAKER) (test code = 437) NEUTROPHILS ABSOLUTE COUNT 9.10 K/ L 1.78-5.38 H (BEAKER) (test code = 670) LYMPHOCYTES ABSOLUTE COUNT 0.63 K/ L 1.32-3.57 L (BEAKER) (test code = 414) MONOCYTES ABSOLUTE COUNT (BEAKER) 1.49 K/ L 0.30-0.82 H (test code = 415) EOSINOPHILS ABSOLUTE COUNT 0.18 K/ L 0.04-0.54 (BEAKER) (test code = 416) BASOPHILS ABSOLUTE COUNT (BEAKER) 0.11 K/ L 0.01-0.08 H (test code = 417) IMMATURE GRANULOCYTES-RELATIVE 1 % 0-1 PERCENT (BEAKER) (test code = 2801) POCT-GLUCOSE [id number] 00:03:00 Test Item Value Reference Range Interpretation Comments POC-GLUCOSE METER 245 mg/dL 70-110 H : TESTED A T [facility] 6720 (BEAKER) (test code = [facility], [facility]) [address]: Paving Block Cutter/Techni estefani ID = [id number] for FRANCK SKELTON POCT-GLUCOSE [id number] 21:18:00 Test Item Value Reference Range Interpretation Comments POC-GLUCOSE METER 252 mg/dL 70-110 H : TESTED A T [facility] 6720 (BEAKER) (test code = [facility], [facility]8) [address]: Paving Block Cutter/Techni estefani ID = [id number] for DA FLACO KAVYA POCT-GLUCOSE [id number] 16:53:00 Test Item Value Reference Range Interpretation Comments POC-GLUCOSE METER 175 mg/dL 70-110 H : TESTED A T [facility] 6720 (BEAKER) (test code = [facility], [facility]8) [address]: Paving Block Cutter/Techni estefani ID = [id number] for Do minguez, Isaías POCT-GLUCOSE [id number] 13:58:00 Test Item Value Reference Range Interpretation Comments POC-GLUCOSE METER 191 mg/dL 70-110 H : TESTED A T [facility] 6720 (BEAKER) (test code = [facility], 1538) 13406: Paving Block Cutter/Techni estefani ID = [id number] for Do minguez, Isaías POCT-GLUCOSE [id number] 11:18:00 Test Item Value Reference Range Interpretation Comments POC-GLUCOSE METER 88 mg/dL 70-110 : TESTED A T [facility] 6720 (BEAKER) (test code = [facility] [place], 1538) 216[address]: Paving Block Cutter/Techni estefani ID = [id number] for CORNELIUS SANDY HEMODIALYSIS [id number] 08:18:33Melody Meza RN 06/25/2019 11:44 AMTolerated HD over 3.5 hours via left upper arm AVF +bruit + thrill noted.. NET removal was 2.5 liters. Pt tolerated tx well. Lab Results Component Value Date WBC 13.1 (H) 06/25/2019 HGB 7.9 (L) 06/25/2019 HCT 25.6 (L) 06/25/2019 MCV 94.8 (H) 06/25/2019PLT 418 06/25/2019 Lab Results Component Value Date GLUCOSE 130 (H) 06/25/2019 CALCIUM 7.7 (L) 06/25/2019 NA 130 (L) 06/25/2019 K 5.0 06/25/2019 CO2 24 06/25/2019 CL 94 (L) 06/25/2019 BUN 54 (H) 06/25/2019 CREATININE 11.58 (H) 06/25/2019 Lab Results Component Value Date HEPBSAG Nonreactive 06/15/2019 ]No results found for: HEPAIGM, HEPBIGM, HEPBCAB, HBEAG, HEPCABNo results found for: PNW8P4Lkov Profile: No results found for: PROTIME, INR, PTTCHI [facility] [id number] 07:59:00 Test Item Value Reference Range Interpretation Comments POC-GLUCOSE METER 112 mg/dL 70-110 H : TESTED A T [facility] 6720 (BEAKER) (test code = [facility] [place], 1538) [address]: Paving Block Cutter/Techni estefani ID = [id number] for CORNELIUS MAO BASIC METABOLIC [id number] 07:35:00 Test Item Value Reference Range Interpretation Comments SODIUM (BEAKER) 130 meq/L 136-145 L (test code = 381) POTASSIUM (BEAKER) 5.0 meq/L 3.5-5.1 (test code = 379) CHLORIDE (BEAKER) 94 meq/L 98-107 L (test code = 382) CO2 (BEAKER) (test 24 meq/L 22-29 code = 355) BLOOD UREA NITROGEN 54 mg/dL 7-21 H (BEAKER) (test code = 354) CREATININE (BEAKER) 11.58 mg/dL 0.57-1.25 H (test code = 358) GLUCOSE RANDOM 130 mg/dL 70-105 H (BEAKER) (test code = 652) CALCIUM (BEAKER) 7.7 mg/dL 8.4-10.2 L (test code = 697) EGFR (BEAKER) (test 5 mL/min/1.73 ESTIMAT ED GFR IS code = 1092) sq m NOT ACCURATE CREATININE CLEARANCE IN PREDICTING GLOMERULAR FILTRATION RATE . ESTIMATED GFR I S NOT APPLICABLE FOR DIALYSIS PATIEN TS. Paving Block Cutter ID Benjie BOSCH [id number] 07:27:00 Test Item Value Reference Range Interpretation Comments PHOSPHORUS (BEAKER) (test code = 7.1 mg/dL 2.3-4.7 H 604) Paving Block Cutter ID - DANITZA [id number] 07:27:00 Test Item Value Reference Range Interpretation Comments MAGNESIUM (BEAKER) (test code = 2.5 mg/dL 1.6-2.6 627) Paving Block Cutter ID - DANITZA LCBC W/PLT COUNT & AUTO [id number] 06:36:00 Test Item Value Reference Range Interpretation Comments WHITE BLOOD CELL COUNT (BEAKER) 13.1 K/ L 3.5-10.5 H (test code = 775) RED BLOOD CELL COUNT (BEAKER) 2.70 M/ L 4.63-6.08 L (test code = 761) HEMOGLOBIN (BEAKER) (test code = 7.9 GM/DL 13.7-17.5 L 410) HEMATOCRIT (BEAKER) (test code = 25.6 % 40.1-51.0 L 411) MEAN CORPUSCULAR VOLUME (BEAKER) 94.8 fL 79.0-92.2 H (test code = 753) MEAN CORPUSCULAR HEMOGLOBIN 29.3 pg 25.7-32.2 (BEAKER) (test code = 751) MEAN CORPUSCULAR HEMOGLOBIN CONC 30.9 GM/DL 32.3-36.5 L (BEAKER) (test code = 752) RED CELL DISTRIBUTION WIDTH 14.1 % 11.6-14.4 (BEAKER) (test code = 412) PLATELET COUNT (BEAKER) (test 418 K/CU MM 150-450 code = 756) MEAN PLATELET VOLUME (BEAKER) 9.7 fL 9.4-12.4 (test code = 754) NUCLEATED RED BLOOD CELLS 0 /100 WBC 0-0 (BEAKER) (test code = 413) NEUTROPHILS RELATIVE PERCENT 79 % (BEAKER) (test code = 429) LYMPHOCYTES RELATIVE PERCENT 6 % (BEAKER) (test code = 430) MONOCYTES RELATIVE PERCENT 10 % (BEAKER) (test code = 431) EOSINOPHILS RELATIVE PERCENT 3 % (BEAKER) (test code = 432) BASOPHILS RELATIVE PERCENT 1 % (BEAKER) (test code = 437) NEUTROPHILS ABSOLUTE COUNT 10.33 K/ L 1.78-5.38 H (BEAKER) (test code = 670) LYMPHOCYTES ABSOLUTE COUNT 0.81 K/ L 1.32-3.57 L (BEAKER) (test code = 414) MONOCYTES ABSOLUTE COUNT (BEAKER) 1.26 K/ L 0.30-0.82 H (test code = 415) EOSINOPHILS ABSOLUTE COUNT 0.41 K/ L 0.04-0.54 (BEAKER) (test code = 416) BASOPHILS ABSOLUTE COUNT (BEAKER) 0.14 K/ L 0.01-0.08 H (test code = 417) IMMATURE GRANULOCYTES-RELATIVE 1 % 0-1 PERCENT (BEAKER) (test code = 2801) POCT-GLUCOSE [id number] 21:42:00 Test Item Value Reference Range Interpretation Comments POC-GLUCOSE METER 171 mg/dL 70-110 H : TESTED A T [facility] 6720 (BEAKER) (test code = [facility], 1538) 79455: Paving Block Cutter/Techni estefani ID = [id number] for DA KAVYA SAM POCT-GLUCOSE [id number] 16:53:00 Test Item Value Reference Range Interpretation Comments POC-GLUCOSE METER 219 mg/dL 70-110 H : TESTED A T [facility] 6720 (BEAKER) (test code = [facility], 1538) 30221: Paving Block Cutter/Techni estefani ID = [id number] for OR DALE URRUTIA POCT-GLUCOSE [id number] 12:15:00 Test Item Value Reference Range Interpretation Comments POC-GLUCOSE METER 181 mg/dL 70-110 H : TESTED A T [facility] 6720 (BEAKER) (test code = [facility], 1538) 88802: Paving Block Cutter/Techni estefani ID = [id number] for OR RENAN, DALE POCT-GLUCOSE [id number] 08:04:00 Test Item Value Reference Range Interpretation Comments POC-GLUCOSE METER 125 mg/dL 70-110 H : TESTED A T [facility] 6720 (BEAKER) (test code = [facility], 1538) 38744: Paving Block Cutter/Techni estefani ID = [id number] for OR RENAN, DALE BASIC METABOLIC [id number] 05:56:00 Test Item Value Reference Range Interpretation Comments SODIUM (BEAKER) 132 meq/L 136-145 L (test code = 381) POTASSIUM (BEAKER) 4.5 meq/L 3.5-5.1 (test code = 379) CHLORIDE (BEAKER) 95 meq/L 98-107 L (test code = 382) CO2 (BEAKER) (test 26 meq/L 22-29 code = 355) BLOOD UREA NITROGEN 42 mg/dL 7-21 H (BEAKER) (test code = 354) CREATININE (BEAKER) 9.39 mg/dL 0.57-1.25 H (test code = 358) GLUCOSE RANDOM 134 mg/dL 70-105 H (BEAKER) (test code = 652) CALCIUM (BEAKER) 7.6 mg/dL 8.4-10.2 L (test code = 697) EGFR (BEAKER) (test 6 mL/min/1.73 ESTIMAT ED GFR IS code = 1092) sq m NOT ACCURATE CREATININE CLEARANCE IN PREDICTING GLOMERULAR FILTRATION RATE . ESTIMATED GFR I S NOT APPLICABLE FOR DIALYSIS PATIEN TS. Paving Block Cutter ID - DANITZA [id number] 05:16:00 Test Item Value Reference Range Interpretation Comments PHOSPHORUS (BEAKER) (test code = 5.7 mg/dL 2.3-4.7 H 604) Paving Block Cutter ID - DANITZA [id number] 05:16:00 Test Item Value Reference Range Interpretation Comments MAGNESIUM (BEAKER) (test code = 2.4 mg/dL 1.6-2.6 627) Paving Block Cutter ID - PIAYA LCBC W/PLT COUNT & AUTO [id number] 05:04:00 Test Item Value Reference Range Interpretation Comments WHITE BLOOD CELL COUNT (BEAKER) 14.2 K/ L 3.5-10.5 H (test code = 775) RED BLOOD CELL COUNT (BEAKER) 2.54 M/ L 4.63-6.08 L (test code = 761) HEMOGLOBIN (BEAKER) (test code = 7.5 GM/DL 13.7-17.5 L 410) HEMATOCRIT (BEAKER) (test code = 24.2 % 40.1-51.0 L 411) MEAN CORPUSCULAR VOLUME (BEAKER) 95.3 fL 79.0-92.2 H (test code = 753) MEAN CORPUSCULAR HEMOGLOBIN 29.5 pg 25.7-32.2 (BEAKER) (test code = 751) MEAN CORPUSCULAR HEMOGLOBIN CONC 31.0 GM/DL 32.3-36.5 L (BEAKER) (test code = 752) RED CELL DISTRIBUTION WIDTH 13.9 % 11.6-14.4 (BEAKER) (test code = 412) PLATELET COUNT (BEAKER) (test 400 K/CU MM 150-450 code = 756) MEAN PLATELET VOLUME (BEAKER) 9.6 fL 9.4-12.4 (test code = 754) NUCLEATED RED BLOOD CELLS 0 /100 WBC 0-0 (BEAKER) (test code = 413) NEUTROPHILS RELATIVE PERCENT 77 % (BEAKER) (test code = 429) LYMPHOCYTES RELATIVE PERCENT 9 % (BEAKER) (test code = 430) MONOCYTES RELATIVE PERCENT 9 % (BEAKER) (test code = 431) EOSINOPHILS RELATIVE PERCENT 3 % (BEAKER) (test code = 432) BASOPHILS RELATIVE PERCENT 1 % (BEAKER) (test code = 437) NEUTROPHILS ABSOLUTE COUNT 10.93 K/ L 1.78-5.38 H (BEAKER) (test code = 670) LYMPHOCYTES ABSOLUTE COUNT 1.27 K/ L 1.32-3.57 L (BEAKER) (test code = 414) MONOCYTES ABSOLUTE COUNT (BEAKER) 1.23 K/ L 0.30-0.82 H (test code = 415) EOSINOPHILS ABSOLUTE COUNT 0.41 K/ L 0.04-0.54 (BEAKER) (test code = 416) BASOPHILS ABSOLUTE COUNT (BEAKER) 0.16 K/ L 0.01-0.08 H (test code = 417) IMMATURE GRANULOCYTES-RELATIVE 1 % 0-1 PERCENT (BEAKER) (test code = 2801) POCT-GLUCOSE [id number] 21:56:00 Test Item Value Reference Range Interpretation Comments POC-GLUCOSE METER 182 mg/dL 70-110 H : TESTED A T [facility] 6720 (BEAKER) (test code = [facility], 1538) 34084: Paving Block Cutter/Techni estefani ID = [id number] for Hi ll, Cynthia POCT-GLUCOSE [id number] 17:09:00 Test Item Value Reference Range Interpretation Comments POC-GLUCOSE METER 260 mg/dL 70-110 H : TESTED A T [facility] 6720 (BEAKER) (test code = [facility], 1538) 91934: Paving Block Cutter/Techni estefani ID = [id number] for OR DALE URRUTIA POCT-GLUCOSE [id number] 12:02:00 Test Item Value Reference Range Interpretation Comments POC-GLUCOSE METER 244 mg/dL 70-110 H : TESTED A T [facility] 6720 (BEAKER) (test code = [facility], 1538) 26095: Paving Block Cutter/Techni estefani ID = [id number] for OR RENAN DALE BASIC METABOLIC [id number] 08:22:00 Test Item Value Reference Range Interpretation Comments SODIUM (BEAKER) 132 meq/L 136-145 L (test code = 381) POTASSIUM (BEAKER) 4.3 meq/L 3.5-5.1 (test code = 379) CHLORIDE (BEAKER) 98 meq/L 98-107 (test code = 382) CO2 (BEAKER) (test 25 meq/L 22-29 code = 355) BLOOD UREA NITROGEN 30 mg/dL 7-21 H (BEAKER) (test code = 354) CREATININE (BEAKER) 7.03 mg/dL 0.57-1.25 H (test code = 358) GLUCOSE RANDOM 177 mg/dL 70-105 H (BEAKER) (test code = 652) CALCIUM (BEAKER) 7.6 mg/dL 8.4-10.2 L (test code = 697) EGFR (BEAKER) (test 8 mL/min/1.73 ESTIMAT ED GFR IS code = 1092) sq m NOT ACCURATE CREATININE CLEARANCE IN PREDICTING GLOMERULAR FILTRATION RATE . ESTIMATED GFR I S NOT APPLICABLE FOR DIALYSIS PATIEN TS. Paving Block Cutter ID - [id number] 07:57:00 Test Item Value Reference Range Interpretation Comments PHOSPHORUS (BEAKER) (test code = 5.4 mg/dL 2.3-4.7 H 604) Paving Block Cutter ID - [id number] 07:57:00 Test Item Value Reference Range Interpretation Comments MAGNESIUM (BEAKER) (test code = 2.3 mg/dL 1.6-2.6 627) Paving Block Cutter ID - LMPOCT-GLUCOSE [id number] 07:55:00 Test Item Value Reference Range Interpretation Comments POC-GLUCOSE METER 154 mg/dL 70-110 H : TESTED A T [facility] 6720 (BEAKER) (test code = [facility] [place], 1538) 42432: Paving Block Cutter/Techni estefani ID = [id number] for OR DALE URRUTIA CBC W/PLT COUNT & AUTO [id number] 06:10:00 Test Item Value Reference Range Interpretation Comments WHITE BLOOD CELL COUNT (BEAKER) 14.2 K/ L 3.5-10.5 H (test code = 775) RED BLOOD CELL COUNT (BEAKER) 2.48 M/ L 4.63-6.08 L (test code = 761) HEMOGLOBIN (BEAKER) (test code = 7.4 GM/DL 13.7-17.5 L 410) HEMATOCRIT (BEAKER) (test code = 24.2 % 40.1-51.0 L 411) MEAN CORPUSCULAR VOLUME (BEAKER) 97.6 fL 79.0-92.2 H (test code = 753) MEAN CORPUSCULAR HEMOGLOBIN 29.8 pg 25.7-32.2 (BEAKER) (test code = 751) MEAN CORPUSCULAR HEMOGLOBIN CONC 30.6 GM/DL 32.3-36.5 L (BEAKER) (test code = 752) RED CELL DISTRIBUTION WIDTH 13.9 % 11.6-14.4 (BEAKER) (test code = 412) PLATELET COUNT (BEAKER) (test 368 K/CU MM 150-450 code = 756) MEAN PLATELET VOLUME (BEAKER) 9.7 fL 9.4-12.4 (test code = 754) NUCLEATED RED BLOOD CELLS 0 /100 WBC 0-0 (BEAKER) (test code = 413) NEUTROPHILS RELATIVE PERCENT 77 % (BEAKER) (test code = 429) LYMPHOCYTES RELATIVE PERCENT 9 % (BEAKER) (test code = 430) MONOCYTES RELATIVE PERCENT 8 % (BEAKER) (test code = 431) EOSINOPHILS RELATIVE PERCENT 3 % (BEAKER) (test code = 432) BASOPHILS RELATIVE PERCENT 1 % (BEAKER) (test code = 437) NEUTROPHILS ABSOLUTE COUNT 11.00 K/ L 1.78-5.38 H (BEAKER) (test code = 670) LYMPHOCYTES ABSOLUTE COUNT 1.28 K/ L 1.32-3.57 L (BEAKER) (test code = 414) MONOCYTES ABSOLUTE COUNT (BEAKER) 1.18 K/ L 0.30-0.82 H (test code = 415) EOSINOPHILS ABSOLUTE COUNT 0.38 K/ L 0.04-0.54 (BEAKER) (test code = 416) BASOPHILS ABSOLUTE COUNT (BEAKER) 0.17 K/ L 0.01-0.08 H (test code = 417) IMMATURE GRANULOCYTES-RELATIVE 2 % 0-1 H PERCENT (BEAKER) (test code = 2801) Vancomycin level, [id number] 06:06:00 Test Item Value Reference Range Interpretation Comments Vancomycin Rm (test 15.8 ug/mL code = 64225-7) MITCHELL (test code = Reference Range: No MITCHELL) NormalsOperator ID - [facility] JoseVANCOMYCIN LEVEL, [id number] 06:06:00 Test Item Value Reference Range Interpretation Comments VANCOMYCIN RANDOM (BEAKER) (test 15.8 ug/mL code = 523) Reference Range: No NormalsOperator ID - LMPOCT-GLUCOSE [id number] 21:02:00 Test Item Value Reference Range Interpretation Comments POC-GLUCOSE METER 231 mg/dL 70-110 H : TESTED A T [facility] 6720 (BEAKER) (test code = [facility] [place], 1538) 36114: Paving Block Cutter/Techni estefani ID = [id number] for WESTLEY RONDON POCT-GLUCOSE [id number] 17:06:00 Test Item Value Reference Range Interpretation Comments POC-GLUCOSE METER 227 mg/dL 70-110 H : TESTED A T [facility] 6720 (ParaEngine) (test code = [facility], 1538) 35959: Paving Block Cutter/Techni estefani ID = [id number] for OR DALE URRUTIA POCT-GLUCOSE [id number] 12:13:00 Test Item Value Reference Range Interpretation Comments POC-GLUCOSE METER 147 mg/dL 70-110 H : TESTED A T [facility] 6720 ([employer]) (test code = [facility], 1538) 99480: Paving Block Cutter/Techni estefani ID = [id number] for OR DALE URRUTIA HEMODIALYSIS [id number] 12:02:34Izaiah Brown RN 06/22/2019 12:03 PMHD x 3.5 hrs. UF net removed 2.5L. Tolerated tx well. No complaints, not in distress. Report given to primary RN Michelle. Lab Results Component Value Date WBC 15.3 (H) 06/22/2019 HGB 7.8 (L) 06/22/2019 HCT 25.9 (L) 06/22/2019 MCV 94.9 (H) 06/22/2019 PLT 1906506/22/2019 Lab Results Component Value Date GLUCOSE 133 (H) 06/22/2019 CALCIUM 7.9 (L) 06/22/2019 NA 132 (L) 06/22/2019 K 4.5 06/22/2019 CO2 25 06/22/2019 CL 94 (L) 06/22/2019 BUN 56 (H) 06/22/2019 CREATININE 9.79 (H) 06/22/2019 Lab Results Component Value Date HEPBSAG Nonreactive 06/15/2019 ]No results found for: HEPAIGM, HEPBIGM, HEPBCAB, HBEAG, HEPCABNo results found for: TRE3Q9Hodn Profile: No results found for: PROTIME, INR, [facility]CHI [facility] [id number] 11:39:00 Test Item Value Reference Range Interpretation Comments POC-GLUCOSE METER 138 mg/dL 70-110 H : TESTED A T [facility] 6720 (ParaEngine) (test code = [facility], 1538) 65634: Paving Block Cutter/Techni estefani ID = [id number] for Izaiah Barber Tissue [id number] 09:01:00 Test Item Value Reference Range Interpretation Comments Case Report (test code Surgical Pathology = 104) Report Case: [id number] Authorizing Provider: Star Mirza DPM Collected: 06/19/2019 11:18 AM Ordering Location: [facility] PERI[facility] Received: 06/19/2019 11:51 AM SERVICES Pathologist: Jonathan Hutchison MD Specimen: Foot, Right, right forefoot DIAGNOSIS (test code = [id number] 3220) uZzEwMzNcZnRuYmpcdWMxIH mbmaKwHZmtv2DsU5QuWiHnR FxhbnNpXGRlZmxhbmcxMDMz KWD9naYzNBIqLPabFXCtGRp iPh8luZXcdAcuRtUsQYOhg3 ofjfKMkneghIe4o0hnJVWgD zT8lTCpBOloH0xvskSxzNJj WRBuDMg8iJ32DPMboA3jqCT lHBdvmcRkBaH0MGdmOKYfQv V1NVOubAUlDDBwQ9pzOPWsT SzcXFYpXLvozZMfPGQ4uZjv n2S5zKFuuYFuxWbpBsLzUcY mILCVa1AaKQa5iGtsH4PiXY CyEhL0hACiGPVxQRzyXGImC QKftcE8eV76QOnwogB5dTHi z3Mkg86ah215nJ0cqXUaUJR 9AQMtXWTgkSKbJAGnHLY8II PwkXRbL6t2VqGylYCpU0L0S nGobCFhE8J7XkTecHSsL6L9 JcTqvXEaCTLhxUJyOk5wuJU fyVAwdn6ynx02BNN9v8OdqK epZTJ3UOI7MtDzLp2wtYInW RCaHL0lGfWzoSXiJSJuwm93 oSizUTefesIxxF8uBiLrMZW isJHpXHWyVU8ypIBwEPIraY 5ucmxjXHBnYnJkcmhlYWRcc SyvtfOtQz2foGunBIO6QVzf N5ekaM8dZbK1AZsfH5sgbT7 vRQq5LCpxaOT5PZPniD8xEF 3axqsdd6qkItQuBG3ixcuum 0qoOlQtAY7vuoq2u4zvNgIx RQ2srwtvu3laSuTkZHkqPXG tlquaDEIgc8QbmesxAZNrq7 TcC9XgrQknH17vvQcbE44fS VXsdTckoW5hoYabxF8dNrKs ZnMyNFxxbFxwbGFpblxmMVx mczIwXGxhbmcxMDMzXGhpY2 osUoCoZFLzmUiwBHxyz0GcX GYxXGZzMjAgUEFSVCBBIFJJ Q1jIWSZZK9BnNQXWOJ3JZTN UQVRBUlNBTCBBTVBVVEFUSU 2IHwalBYLhM1QMF8OQWu9JY qWYGPDMG5GELkKGPhILW2wY HEPNWCBLW7BYHZRSX1XBDI7 ccGFyIFVOREVSTFlJTkcgQU NDLCPyVX4JNQLYDg5AUQYdC 8RCSX3IEQJIUELERi3mbKZt CFRKTTFSVnZED8QFQYZULX7 VNXBCHWSIVTQDH10mQKIyvb ZBA03LNDVBVPVWY4GADUEBR 4IBDTYCCGMEWE7APRVARTVQ HgJJFOLRUP4lFLSuid74WGU 9TdHeo5J8XEZ0KYZbIURuf2 lcZGVmbGFuZzEwMzNcZnRuY snktJSsIFQoOiCey0dwp427 jPIch4leTMUcOqE7sMVhQAD uzLTrL770FGWpIVvuh2ukv7 UxLQEqxYZkr9U5LMMQxpflg Iq6oDtcQ92so7X8QvjnC4uv HEBpFRWnR0YzYC3tIITaHun 1YXI8GET5XJHcFIShX1GoCS 0oMACoiNGvTWw8w4ifmZvrX MPwRSV5r0mvJBmyccZtWI1s wg6joZe5k2lcwaRoOOPpGGQ mvIFGDUVrO5MtfIkoKi2ufW d8oRzmMrndNOO0Jjf4ND8lk n29fmh0xRmhULDgcwckYsT5 FDobWFJcqmjbCDe7EWitYHH qzWT5BWLqsJMgB2CyZJAfLM 2eizd8BHV9UMzqABFdLgE0E WRkkLVaJFMrsMbrHIqjk131 XWU3MnBnHV2kO9Yis5S4aR4 maXRcZGVmdGFiNzIwXGZvcm 0zeBLkNFyac3HdSXA2doR4b XYxgSNtOBWlVqM8UPswXW4d fe01TOEpBLQ8gi7uuCCpkDn esiRxdMMgNIwgK4EvQPArx0 50UUDeV0DdCQLdk2S3dcVaN nMwMQGceHL8baW3LJMfKE9g xhhjv1esSXzcVNuyKSQziuO 3hzM1VZHeoFHyA2IndI5eWL BvZC0vegcev7yxVOA4XOscI JEqOTR2MfLeZFIuy4Xzzcd2 JtSht9NtkKImPWcmV83dm14 1LDAdlsAaU1yviAVczpkceL TobiccGWciauS5ZZUpGWfjy wuiOFEgSUqeK2gfPaCtHEVg fMaeZDlov7UpEDRjFXEfNfZ pkHFyLJCaFdf4QFOpxZWjZP FxYbXjU1acqzlcQrILKRRvn 5ubK8pxmRXMtVTgW6LpQGta nxCaWNvsEBejTXQ5KFE6Jm9 2PkG4SNTamv89 CPT Code(s) (test code q3dajXVzSZCsjEEpRcUpOBV = 3357) vTDPhp4crGALgzHIwJlXlGe NcZnRuYmpcdWMxXGRlZmYwe 4enj201nZUhq4cqHAHxSoW7 fYYoBWSoqSUwD765n3gfu7t jklLphIW8SQKqXLT5YRaquz BewoX8LLysiTTaIxQ7IAavg gKuMTlsuqPvcdFfUbt0JDQp R477PLL0mMehy7rpMVP3HUB vFTZoBwIiHi6igEUfI411DM IkQPJTUCYomUm2TJUpufVih kBelLQJh535X116s4zfXAKk gaOiuTaYafgjp9gmY975QFO hcGVydzEyMjQwXHBhcGVyaD D0HQAcPX0vcdxeKzCbPA1lg zchBsZwGS6nbsi6VaQdRP4o cmdiNzIwXGhlYWRlcnkwXGZ zc7OgskemTL3qE9Gao5S9hL 9maXRcZGVmdGFiNzIwXGZvc p7ncDAcCWgmi8TyZYN1hlU7 gPQprBPvFFFxVU43Cakwd1N iTvcwMDZ0VYWhxpEcm4Hvs5 xuAkGfqrXdT1kbK2YaGIZoD RIbXXHxQfYpvwQzs9Iye2Eg rZLdeUj2p1fhOYBwPDRgsHj fq9zrUTO8OXHsC5J7kAFru7 beMCnwTUIjxWI7wvgpCOpaC IZoysK7jvkwZUizUSJwbRH5 ucwdLHnkXSWgSoX6ndvpBKl iVORoPKK7AWqun066AAC2ZI xzYmtwYWdlXHBnbmNvbnRcc GduZGVjXHBsYWluXHBsYWlu XGYwXGZzMjRccWxccGxhaW5 nEfOxJwNcXMomPX3yMOBdR7 fpqBUhLAOzEZIyZ2vmWpEno U8qnSkrMTtgnkAcLOu8KqG2 VKT1HCKuBIweVFS8 CLINICAL HISTORY (test k4gcjNCtTDXrfBBxPgGlQUR code = 3356) lUDRej3zsMOZndBQtYdRhIj NcZnRuYmpcdWMxXGRlZmYwe 1zyz057oEPdg7kiHDCwZeU2 wASlQBWsiOVzU626u6tia9e lykBvnYT6BVKiYLB3VWcrdk QyqrF4GVynrWLcXhD7LFmlv bJvQTimirHpsjYwClc5XOUd X632TXA3rNyzj9uyCKD0OFG yBFJvKpEgOq3onARlU696IV SgLWLRQJWklLs8CKIvuqTfz bJxgEEXi771W968o2mtGQCh ekOcjVcNoujef1ppU918YMI hcGVydzEyMjQwXHBhcGVyaD W0DLFdHM8hxqfcXrHxZI1vm zvvDjWyEI5rkml8DnPjJN6n cmdiNzIwXGhlYWRlcnkwXGZ hz5PczcytFV0yG4Bmz8J2wX 9maXRcZGVmdGFiNzIwXGZvc u5ndKUoMRppj7QxKYT8kuM5 uLUstHQrIFJhPI86Okxnp0U qCaczANK2XBTixkUdo3Pfo6 wzReWhfiZgQ1ygC6OgPALhC XHkERAsBuUudgPoe4Txd2Wx dSMqvLi1c4ppVXMvZNRjtXq xf5cmZSA2CKDwN0I4bUNim4 ekWNegWTAseTZ0gwnrAYtqY QGemmH0vhfzXQfeRCYhuVP4 owocXWrmZTVaUjB3aszuXZe jMWKuKPY5TJmfg724HEA2CA xzYmtwYWdlXHBnbmNvbnRcc GduZGVjXHBsYWluXHBsYWlu XGYwXGZzMjRccWxccGxhaW5 nKrJpTxLjJFisZQ6iKVRkA4 eytHOqZOKpGBAiG2ehTmUvo I6lmJcqIUzsqvMgEIVoRK7t LGKnBMfja8CodjbvQMjmeno jMD7tRRQzb65zLIUmhJ4jIL xlkL3iBV7kFXOnE4h8QMzoP WxccGFyfQ== SPECIMEN SOURCE (test c8krrXYsRZCwzQDpOuDxCDF code = 3377) rSRIlt3bkAJWyqLVqXxHtDe NcZnRuYmpcdWMxXGRlZmYwe 3ghg624vMFmr7znTUSiVaD1 wTIlUUHujKVuP117f6are7l uqwPlyMJ1AQHdYVC7QSfdmy NkhnX3ITukpSMyFxS9EBcae pLdQTnnmwOqcqTqGve7GXNo G016OHH8kYmjk4enLZG8SDP vIEViJwMbCf4dpASkW492AO SsCUEZSXVakCu5LAJgvhJwf bMxzFFXs032N553w9epSIAg uvQciDrIoqnnh1fyR290FIX hcGVydzEyMjQwXHBhcGVyaD R8NFQhKN3brkcsFdBfID7wb mtsWsKcNN8crev3LgLnID4b cmdiNzIwXGhlYWRlcnkwXGZ jn8LntyfpSQ3vZ6Emf7P6bY 9maXRcZGVmdGFiNzIwXGZvc y9rkYRyXYcdg3KqCEG4ykA5 bKEhlZFvUFJeNS34Pqukc9P eBbbuRHR4WNWhpvOdu8Wjg2 wxBoCdifZlQ0seG2XhRGVgH SBnRZJtGcIrqrIrh6Ryg2Ew dGSndVp0w5vlTJSdXNTchYs rr2rdRIO1QMLqQ1G9rFJef1 bdMUgfCWCtfMC9dudlECglC NJxioH1jtlaLItgVABwiRW8 qnafUIzxNQPwZyD1otooCBr oQZLqIAK7YVwgg106ADA3KK xzYmtwYWdlXHBnbmNvbnRcc GduZGVjXHBsYWluXHBsYWlu XGYwXGZzMjRccWxccGxhaW5 eLeYoCqGqSGzcUH1mDPXjC3 nbwKXwUKEvSOFmI4lnNwJxw F0tlNneEKcivwMtFBHyZMMo U1c0KFSal6OnsDRyqT== GROSS DESCRIPTION w2vvyZQdFZJriIZlMuXiFYN (test code = 3366) pBARur5fkEEWwzCGdVhQzRr NcZnRuYmpcdWMxXGRlZmYwe 6xcf233vNVpo9pyTTKpMoF5 kVNyUWNryPQgO863VTYaTMo ts7lyf5VgNICnsJXal7O6YY FOfflboIq4rYmoS96ot6D0J xorU0xxIPPlDUltBJDlGIft jZGtGGS4BJGcGEZ7VFnqxpH zyhX9ELtkvFMyZiY1USk5a2 zqnRqxEPJeLCD0q2cgSVxto xVqSF8atf3glNq9t4qmovBv TBOwVDHrkWGDJRKgH9IodUm jZl1kfZh7sAjmEconBNR3Ip k0RQ6yaf67jhr7lCkhWYKqu nghUnQ0PMsaSEOscpocLXc2 MFxtYXJnbDcyMFxtYXJncjc yMFxtYXJndDcyMFxtYXJnYj mcDDtuHMCiCFQ1HCykz441R LW7KWvpp7tko5kyiRFqZqm0 TBYeTcQzPghqITmpq1Yns9b aDFBsgp2zLHJ8cQPepJvmf5 D8qLPbPLRyxACcvsMsJRLxI iC3GMljFE5ams98EKAqZEF1 gv8aaGHauCtrkcThpDBtTQn tQ0MvTNEia974IQNmU5ZeEK Szc9R3umLeVsJxTBKjqCE7h yO2YRCyLFe3xEUzygO4osVg jOPuG3vwyT09ZpEjyTMiW1T dfA83PdDmtLFmB8AamS04Zp NdoGWjZ0AptD16WsQzvIYxR VIqmHCbHn8dfPQxxCCrv0Fr mFHiLIwzQ25gf789QRYurtK cH9zyvJGoxomltKZvvpfxBF xmczIwXHFsXHBsYWluXGYwX SAvBrVouIbfoD1dOzFnHmDs TMMPESIfnQMkHEPsmmIra9N tYWxpbiBsYWJlbGVkIHdpdG ggdGhlIHBhdGllbnQncyBuY M0aZCXsP6Abb2Izm88pcnMy YmVyIGFuZCAicmlnaHQgZm9 piLAjcIOjUUN7NpErrHO2Vo RdoUVvQtLkX67cnYCvrmDkJ XUlqPHjj5MiGDJbdGP8SCBk y08sANjrmLhozEbiUiUjpRe slCSxVGrcYYJzxmZvON5iJA osJJKtmY3qoYPibERzOZWhq xlzOS6pVZVco7QyJIjnXNBc RC8lEGpsRE07NXBvNAlpFSF oOQKbLXKpYYBwC2DtRDTcLF QwAZMzx43cNWTrbDstXUYjZ CIem4SwRXFthKIwx0EtBA7l pIQauUytybZ7sBZ3FWghPBr ofk7idljeKbQ7zQFkVG92vV YpNWH1jXHgaIptwIbmGY7cV IrrYYNnhCO3kA3yZRCmPSXv c4btWDGwTGUae3X7DGRco5P 4DMPcSJAseD7vVWwok9HtJF GrgNHtMlLUhATmtG1wRPPtr SbnHlFrPoCuQ6XmIXNwq53g AYbbKISyDO9bsO7qZXP9sjQ sELM1hDS3HTRcZP7qQEKunc 8gPUIeoSE0oHSpZZIlgYcig RXqYZmfaTvfnBZ4HM2bgOUq tW12QDWdxEUrNL0aNNMfSTh vxz7pNiIhraUxSX81EHGbfw Zud9KbnIpwjlHdPTVuVXP5M x1urIFzOUGesbJoy6ahw1my FjorPSGbnCZpTIXeI2Uqv58 xH25pOOukACQwfmVUAPrny9 qeefKchdHmc84lbPZ2rYMcn RYrtLWyB5gcCWLtKZVhM7Hn zECuKCZuDIKqhlO1tA22eyU sqTPfTE0jTCBqoIE5GTBnn8 6ypOEkQTGeRYKta6wnPPpva 5bptgYbwkQlkU4rEXKvdKog HmRdRkVhB5DfMXOlh68iYCD vpPuxw2bhVuMgJCHvzQNsAo wvCUGep13yuRWoRIW0FZX6I KMjk95lIA1yonmlbcAioaYa KRLfNNIukTgvd5mlXcBuTZR vmRMcYkozUWIcb24zpXUqJI LYJ9NhHWqdDQW2 MICROSCOPIC t7awbPLfNQVbsJWbPsEjAFW DESCRIPTION (test code gAKGry2phSYZknKCrBtOaIe = 3371) NcZnRuYmpcdWMxXGRlZmYwe 6gxa822dGZys9rmFAXfTpZ4 zOAhYFDkhCYfI944o4uby9o rvqXxuLU9MFCbCUL7JTtcky IyqcD7AEsgjGDgKuW7FHkqn eTiZUpjwmJtwzIaZye7GXBo S596YUF9sNsse0maGFH4BQQ iNOLqDqMvOl2iaDXeH552NP ZjDDJMLRJisNt6SVNkcvTwm sCkuLOUa559R061q8uoKNSo hnIgsRtRmfihg3huD705WMC hcGVydzEyMjQwXHBhcGVyaD F2YBJnYX9dgesfDvIdBQ2vl kzpGwLzPU0bwfp8TqHoCW4i cmdiNzIwXGhlYWRlcnkwXGZ yi3PwpvexEU5uQ7Fir6I6rJ 9maXRcZGVmdGFiNzIwXGZvc n5czUWoHZnsv8DzJCI9eeS9 uMLbjANsSUMkAC17Lzthe5B nMyfrWJB0LTZeruUue0Det4 wsGdZlqoQjN2rzA4AiDOWwV PByDKAeKdRopeHko2Aed2Pz vHXfoIb2a4rxUPTgAKIzaUo fh7piIGY6SRQdT9M8dWYmz1 phJZohTRKiqPM1xprbWVndN KAharU9ozrhCZazXYTvqPB5 crcuSWryREHpDnV3gcrmPXp yNAVnMAB1MOvhw160CEU3OT xzYmtwYWdlXHBnbmNvbnRcc GduZGVjXHBsYWluXHBsYWlu XGYwXGZzMjRccWxccGxhaW5 uHgUvPtMxLRdsAH9mWHZoX5 petUTeSJAvLBBaW1vbTpPkf Z7tmEwzTGwzouNhJVFGHbXU Bh1MKK1egEXquB== Gross assessment was [facility]'s performed at ([facility], code = 2777) Department of Pathology, [address] [place] [address], Technical component [facility] was performed at ([facility], code = 2778) Department of Pathology, [address] [place], [place] [id number], Professional component [facility] [place] was performed at ([facility], code = 277) Department of Pathology, [address] [place] [address], [facility] [id number] 09:01:00Surgical Pathology Report Case: [id number] Authorizing Provider: Star Mirza DPM Collected: 06/19/2019 11:18 AM Ordering Location: [facility] PERIOPERATIVE Received: 06/19/2019 11:51 AM SERVICES Pathologist: Jonathan Hutchison MD Specimen: Foot, Right, right forefoot PART A RIGHT FOOT, TRANSMETATARSAL AMPUTATION:GANGRENOUS NECROSIS OF SKIN AND SOFT TISSUE.UNDERLYING ACUTE AND CHRONICOSTEOMYELITIS.STATUS POST PRIOR AMPUTATION.BONE AND SOFT TISSUE MARGINS ARE INVOLVED. Signing Pathologist Direct Phone Line: [phone] signed by Jonathan Hutchison MD on 06/22/2019 at 9:01 [id number] diagnosis: Gangrene, nonhealing wound of right heelA. Right footReceived in formalin labeled with the patient's name, accession number and "right foot" is a 9.5 x 9.0 x 3.0 cm transmetatarsal amputation displaying digits 1, 4 and 5. The skin is gardner-pink and displaysa 5.0 x 4.5 cm green-black ulcerated lesion at the previous site of amputation that is involving theentire 4th digit, and is abutting the skin and soft tissue margin (inked blue). The underlying affected bone is red-pink, trabeculated and firm. All three digits display gardner-yellow thickened nails. Financial Management Analyst sections are submitted as follows:Section code: A1, skin and soft tissue margin en faceA2, previous site of amputationA3, skin lesion and underlying affected bone following decalcificationA4-A5, bone margin en face following decalcificationPA/pl PERFORMED.[facility], Department of Pathology, [address] [place] [address], [facility], [address] [place] [address], [facility], [facility] of [facility], [address] [place] [address], UOQZ-GLUCOSE [id number] 08:12:00 Test Item Value Reference Range Interpretation Comments POC-GLUCOSE METER 123 mg/dL 70-110 H : TESTED A T [facility] 6720 (BEAKER) (test code = [facility], 1538) [address]: Paving Block Cutter/Techni estefani ID = [id number] for Izaiah Barber BASIC METABOLIC [id number] 06:52:00 Test Item Value Reference Range Interpretation Comments SODIUM (BEAKER) 132 meq/L 136-145 L (test code = 381) POTASSIUM (BEAKER) 4.5 meq/L 3.5-5.1 (test code = 379) CHLORIDE (BEAKER) 94 meq/L 98-107 L (test code = 382) CO2 (BEAKER) (test 25 meq/L 22-29 code = 355) BLOOD UREA NITROGEN 56 mg/dL 7-21 H (BEAKER) (test code = 354) CREATININE (BEAKER) 9.79 mg/dL 0.57-1.25 H (test code = 358) GLUCOSE RANDOM 133 mg/dL 70-105 H (BEAKER) (test code = 652) CALCIUM (BEAKER) 7.9 mg/dL 8.4-10.2 L (test code = 697) EGFR (BEAKER) (test 5 mL/min/1.73 ESTIMAT ED GFR IS code = 1092) sq m NOT ACCURATE CREATININE CLEARANCE IN PREDICTING GLOMERULAR FILTRATION RATE . ESTIMATED GFR I S NOT APPLICABLE FOR DIALYSIS PATIEN TS. Paving Block Cutter ID - BASSEM [id number] 06:51:00 Test Item Value Reference Range Interpretation Comments PHOSPHORUS (BEAKER) (test code = 6.3 mg/dL 2.3-4.7 H 604) Paving Block Cutter ID - BASSEM [id number] 06:51:00 Test Item Value Reference Range Interpretation Comments MAGNESIUM (BEAKER) (test code = 2.5 mg/dL 1.6-2.6 627) Paving Block Cutter ID Benjie LUEVANO WCBC W/PLT COUNT & AUTO [id number] 06:32:00 Test Item Value Reference Range Interpretation Comments WHITE BLOOD CELL COUNT (BEAKER) 15.3 K/ L 3.5-10.5 H (test code = 775) RED BLOOD CELL COUNT (BEAKER) 2.73 M/ L 4.63-6.08 L (test code = 761) HEMOGLOBIN (BEAKER) (test code = 7.8 GM/DL 13.7-17.5 L 410) HEMATOCRIT (BEAKER) (test code = 25.9 % 40.1-51.0 L 411) MEAN CORPUSCULAR VOLUME (BEAKER) 94.9 fL 79.0-92.2 H (test code = 753) MEAN CORPUSCULAR HEMOGLOBIN 28.6 pg 25.7-32.2 (BEAKER) (test code = 751) MEAN CORPUSCULAR HEMOGLOBIN CONC 30.1 GM/DL 32.3-36.5 L (BEAKER) (test code = 752) RED CELL DISTRIBUTION WIDTH 14.0 % 11.6-14.4 (BEAKER) (test code = 412) PLATELET COUNT (BEAKER) (test 414 K/CU MM 150-450 code = 756) MEAN PLATELET VOLUME (BEAKER) 9.7 fL 9.4-12.4 (test code = 754) NUCLEATED RED BLOOD CELLS 0 /100 WBC 0-0 (BEAKER) (test code = 413) NEUTROPHILS RELATIVE PERCENT 76 % (BEAKER) (test code = 429) LYMPHOCYTES RELATIVE PERCENT 10 % (BEAKER) (test code = 430) MONOCYTES RELATIVE PERCENT 8 % (BEAKER) (test code = 431) EOSINOPHILS RELATIVE PERCENT 3 % (BEAKER) (test code = 432) BASOPHILS RELATIVE PERCENT 1 % (BEAKER) (test code = 437) NEUTROPHILS ABSOLUTE COUNT 11.66 K/ L 1.78-5.38 H (BEAKER) (test code = 670) LYMPHOCYTES ABSOLUTE COUNT 1.58 K/ L 1.32-3.57 (BEAKER) (test code = 414) MONOCYTES ABSOLUTE COUNT (BEAKER) 1.27 K/ L 0.30-0.82 H (test code = 415) EOSINOPHILS ABSOLUTE COUNT 0.42 K/ L 0.04-0.54 (BEAKER) (test code = 416) BASOPHILS ABSOLUTE COUNT (BEAKER) 0.12 K/ L 0.01-0.08 H (test code = 417) IMMATURE GRANULOCYTES-RELATIVE 2 % 0-1 H PERCENT (BEAKER) (test code = 2801) VANCOMYCIN LEVEL, [id number] 06:10:00 Test Item Value Reference Range Interpretation Comments VANCOMYCIN RANDOM (BEAKER) (test 19.5 ug/mL code = 523) Reference Range: No NormalsOperator ID - DBPOCT-GLUCOSE [id number] 21:39:00 Test Item Value Reference Range Interpretation Comments POC-GLUCOSE METER 212 mg/dL 70-110 H : TESTED A T [facility] 6720 (BEAKER) (test code = [facility], 153) [address]: Paving Block Cutter/Techni estefani ID = [id number] for EA GLIN, JALISSIA POCT-GLUCOSE [id number] 17:03:00 Test Item Value Reference Range Interpretation Comments POC-GLUCOSE METER 192 mg/dL 70-110 H : TESTED A T [facility] 6720 ([facility]) (test code = [facility], 153) [address]: Paving Block Cutter/Techni estefani ID = [id number] for HU NTER, HIWITHA POCT-GLUCOSE [id number] 12:20:00 Test Item Value Reference Range Interpretation Comments POC-GLUCOSE METER 191 mg/dL 70-110 H : TESTED A T [facility] 6720 ([facility]) (test code = [facility], 153) 85502: Paving Block Cutter/Techni estefani ID = [id number] for CLAUDIA FONTANA Surgically obtained culture + gram [id number] 11:27:00 Test Item Value Reference Range Interpretation Comments Result (test code = 6463-4) No growth Gram Stain Result (test No organisms seen code = 1123) [facility] [id number] 11:27:00 Test Item Value Reference Range Interpretation Comments CULTURE (BEAKER) (test code No growth = 1095) GRAM STAIN RESULT (BEAKER) 3+ WBCs (test code = 1123) GRAM STAIN RESULT (BEAKER) No organisms seen (test code = 68740) SPIN/CONCENTRATION [id number] 08:46:00 Test Item Value Reference Range Interpretation Comments Concentration charged (test code = Done 2657) [facility] [id number] 08:46:00 Test Item Value Reference Range Interpretation Comments CONCENTRATION CHARGED (BEAKER) (test Done code = 2659) POCT-GLUCOSE [id number] 08:19:00 Test Item Value Reference Range Interpretation Comments POC-GLUCOSE METER 134 mg/dL 70-110 H : TESTED A T [facility] 6720 (BEAKER) (test code = [facility] [place], 1538) [address]: Paving Block Cutter/Techni estefani ID = [id number] for ZOILA SILVA BASIC METABOLIC [id number] 04:44:00 Test Item Value Reference Range Interpretation Comments SODIUM (BEAKER) 135 meq/L 136-145 L (test code = 381) POTASSIUM (BEAKER) 4.8 meq/L 3.5-5.1 (test code = 379) CHLORIDE (BEAKER) 96 meq/L 98-107 L (test code = 382) CO2 (BEAKER) (test 30 meq/L 22-29 H code = 355) BLOOD UREA NITROGEN 48 mg/dL 7-21 H (BEAKER) (test code = 354) CREATININE (BEAKER) 7.86 mg/dL 0.57-1.25 H (test code = 358) GLUCOSE RANDOM 164 mg/dL 70-105 H (BEAKER) (test code = 652) CALCIUM (BEAKER) 7.8 mg/dL 8.4-10.2 L (test code = 697) EGFR (BEAKER) (test 7 mL/min/1.73 ESTIMAT ED GFR IS code = 1092) sq m NOT ACCURATE CREATININE CLEARANCE IN PREDICTING GLOMERULAR FILTRATION RATE . ESTIMATED GFR I S NOT APPLICABLE FOR DIALYSIS PATIEN TS. Paving Block Cutter ID - JAQUELINE [id number] 03:56:00 Test Item Value Reference Range Interpretation Comments PHOSPHORUS (BEAKER) (test code = 6.2 mg/dL 2.3-4.7 H 604) Paving Block Cutter ID Benjie PARSONS [id number] 03:56:00 Test Item Value Reference Range Interpretation Comments MAGNESIUM (BEAKER) (test code = 2.3 mg/dL 1.6-2.6 627) Paving Block Cutter ID Benjie PARSONS [facility] W/PLT COUNT & AUTO [id number] 03:44:00 Test Item Value Reference Range Interpretation Comments WHITE BLOOD CELL COUNT (BEAKER) 15.3 K/ L 3.5-10.5 H (test code = 775) RED BLOOD CELL COUNT (BEAKER) 2.55 M/ L 4.63-6.08 L (test code = 761) HEMOGLOBIN (BEAKER) (test code = 7.6 GM/DL 13.7-17.5 L 410) HEMATOCRIT (BEAKER) (test code = 24.2 % 40.1-51.0 L 411) MEAN CORPUSCULAR VOLUME (BEAKER) 94.9 fL 79.0-92.2 H (test code = 753) MEAN CORPUSCULAR HEMOGLOBIN 29.8 pg 25.7-32.2 (BEAKER) (test code = 751) MEAN CORPUSCULAR HEMOGLOBIN CONC 31.4 GM/DL 32.3-36.5 L (BEAKER) (test code = 752) RED CELL DISTRIBUTION WIDTH 13.7 % 11.6-14.4 (BEAKER) (test code = 412) PLATELET COUNT (BEAKER) (test 337 K/CU MM 150-450 code = 756) MEAN PLATELET VOLUME (BEAKER) 9.3 fL 9.4-12.4 L (test code = 754) NUCLEATED RED BLOOD CELLS 0 /100 WBC 0-0 (BEAKER) (test code = 413) NEUTROPHILS RELATIVE PERCENT 77 % (BEAKER) (test code = 429) LYMPHOCYTES RELATIVE PERCENT 9 % (BEAKER) (test code = 430) MONOCYTES RELATIVE PERCENT 9 % (BEAKER) (test code = 431) EOSINOPHILS RELATIVE PERCENT 2 % (BEAKER) (test code = 432) BASOPHILS RELATIVE PERCENT 1 % (BEAKER) (test code = 437) NEUTROPHILS ABSOLUTE COUNT 11.84 K/ L 1.78-5.38 H (BEAKER) (test code = 670) LYMPHOCYTES ABSOLUTE COUNT 1.42 K/ L 1.32-3.57 (BEAKER) (test code = 414) MONOCYTES ABSOLUTE COUNT (BEAKER) 1.31 K/ L 0.30-0.82 H (test code = 415) EOSINOPHILS ABSOLUTE COUNT 0.34 K/ L 0.04-0.54 (BEAKER) (test code = 416) BASOPHILS ABSOLUTE COUNT (BEAKER) 0.10 K/ L 0.01-0.08 H (test code = 417) IMMATURE GRANULOCYTES-RELATIVE 2 % 0-1 H PERCENT (BEAKER) (test code = 2801) POCT-GLUCOSE [id number] 20:47:00 Test Item Value Reference Range Interpretation Comments POC-GLUCOSE METER 234 mg/dL 70-110 H : TESTED A T [facility] 6720 (BEAKER) (test code = [facility], 153) 15298: Paving Block Cutter/Techni estefani ID = [id number] for EA EARNEST MIRANDAIA POCT-GLUCOSE [id number] 17:12:00 Test Item Value Reference Range Interpretation Comments POC-GLUCOSE METER 192 mg/dL 70-110 H : TESTED A T [facility] 6720 (BEAKER) (test code = [facility], 1538) 289[address]: Paving Block Cutter/Techni estefani ID = [id number] for HU NTER, HIWITHA POCT-GLUCOSE [id number] 12:35:00 Test Item Value Reference Range Interpretation Comments POC-GLUCOSE METER 138 mg/dL 70-110 H : [facility] (test code = [facility], 1538) 16103: Paving Block Cutter/Techni estefani ID = [id number] for HU NTER, HIWITHA POCT-GLUCOSE [id number] 10:12:00 Test Item Value Reference Range Interpretation Comments POC-GLUCOSE METER 101 mg/dL 70-110 : TESTED A T [facility] 6720 (BEAKER) (test code = [facility], 1538) 99841: Paving Block Cutter/Techni estefani ID = [id number] for Doc moreau Bassemleti Hernandez POCT-GLUCOSE [id number] 08:51:00 Test Item Value Reference Range Interpretation Comments POC-GLUCOSE METER 96 mg/dL 70-110 : TESTED A T [facility] 6720 (BEAKER) (test code = [facility] [place], 1538) 532[address]: Paving Block Cutter/Techni estefani ID = [id number] for Bassem House BASIC METABOLIC [id number] 05:04:00 Test Item Value Reference Range Interpretation Comments SODIUM (BEAKER) 130 meq/L 136-145 L (test code = 381) POTASSIUM (BEAKER) 5.3 meq/L 3.5-5.1 H (test code = 379) CHLORIDE (BEAKER) 93 meq/L 98-107 L (test code = 382) CO2 (BEAKER) (test 24 meq/L 22-29 code = 355) BLOOD UREA NITROGEN 76 mg/dL 7-21 H (BEAKER) (test code = 354) CREATININE (BEAKER) 10.30 mg/dL 0.57-1.25 H (test code = 358) GLUCOSE RANDOM 134 mg/dL 70-105 H (BEAKER) (test code = 652) CALCIUM (BEAKER) 7.5 mg/dL 8.4-10.2 L (test code = 697) EGFR (BEAKER) (test 5 mL/min/1.73 ESTIMAT ED GFR IS code = 1092) sq m NOT ACCURATE CREATININE CLEARANCE IN PREDICTING GLOMERULAR FILTRATION RATE . ESTIMATED GFR I S NOT APPLICABLE FOR DIALYSIS PATIEN TS. Paving Block Cutter ID - DANITZA LVANCOMYCIN LEVEL, [id number] 04:56:00 Test Item Value Reference Range Interpretation Comments VANCOMYCIN RANDOM (BEAKER) (test 18.7 ug/mL code = 523) Reference Range: No NormalsOperator ID - DANITZA [id number] 04:49:00 Test Item Value Reference Range Interpretation Comments PHOSPHORUS (BEAKER) (test code = 8.4 mg/dL 2.3-4.7 H 604) Paving Block Cutter ID - DANITZA [id number] 04:49:00 Test Item Value Reference Range Interpretation Comments MAGNESIUM (BEAKER) (test code = 2.5 mg/dL 1.6-2.6 627) Paving Block Cutter ID - DANITZA LCBC W/PLT COUNT & AUTO [id number] 04:22:00 Test Item Value Reference Range Interpretation Comments WHITE BLOOD CELL COUNT (BEAKER) 17.3 K/ L 3.5-10.5 H (test code = 775) RED BLOOD CELL COUNT (BEAKER) 2.85 M/ L 4.63-6.08 L (test code = 761) HEMOGLOBIN (BEAKER) (test code = 8.4 GM/DL 13.7-17.5 L 410) HEMATOCRIT (BEAKER) (test code = 26.2 % 40.1-51.0 L 411) MEAN CORPUSCULAR VOLUME (BEAKER) 91.9 fL 79.0-92.2 (test code = 753) MEAN CORPUSCULAR HEMOGLOBIN 29.5 pg 25.7-32.2 (BEAKER) (test code = 751) MEAN CORPUSCULAR HEMOGLOBIN CONC 32.1 GM/DL 32.3-36.5 L (BEAKER) (test code = 752) RED CELL DISTRIBUTION WIDTH 13.6 % 11.6-14.4 (BEAKER) (test code = 412) PLATELET COUNT (BEAKER) (test 380 K/CU MM 150-450 code = 756) MEAN PLATELET VOLUME (BEAKER) 9.5 fL 9.4-12.4 (test code = 754) NUCLEATED RED BLOOD CELLS 0 /100 WBC 0-0 (BEAKER) (test code = 413) NEUTROPHILS RELATIVE PERCENT 79 % (BEAKER) (test code = 429) LYMPHOCYTES RELATIVE PERCENT 9 % (BEAKER) (test code = 430) MONOCYTES RELATIVE PERCENT 8 % (BEAKER) (test code = 431) EOSINOPHILS RELATIVE PERCENT 3 % (BEAKER) (test code = 432) BASOPHILS RELATIVE PERCENT 1 % (BEAKER) (test code = 437) NEUTROPHILS ABSOLUTE COUNT 13.69 K/ L 1.78-5.38 H (BEAKER) (test code = 670) LYMPHOCYTES ABSOLUTE COUNT 1.48 K/ L 1.32-3.57 (BEAKER) (test code = 414) MONOCYTES ABSOLUTE COUNT (BEAKER) 1.31 K/ L 0.30-0.82 H (test code = 415) EOSINOPHILS ABSOLUTE COUNT 0.49 K/ L 0.04-0.54 (BEAKER) (test code = 416) BASOPHILS ABSOLUTE COUNT (BEAKER) 0.11 K/ L 0.01-0.08 H (test code = 417) IMMATURE GRANULOCYTES-RELATIVE 1 % 0-1 PERCENT (BEAKER) (test code = 2801) RAD, FOOT, 2 VIEWS, [id number] 22:40:00Reason for exam:->post op TMA rightFINAL REPORT CLINICAL HISTORY: Postop transmetatarsal amputation COMPARISON:06/14/2019 FINDINGS: 2 views of the right foot are submitted. Bandage artifact overlies the region of interest. The patient has undergone interval transmetatarsal amputation of all 5 rays at the level ofthe mid metatarsals. There is an expected postoperative appearance. Vascular calcifications are present in the lower leg, ankle and foot. A small plantar calcaneal spur is present. There is no radiopaque foreign body. Signed: Mirta Alexort Verified Date/Time: 06/19/2019 22:40:02 Electro nically signed by: MIRTA ALEX M.D. on 06/19/2019 10:40 PMXR foot 2 views [id number] 22:40:00Interface, External Ris In - 06/19/2019 10:42 PM CDTFINAL REPORT CLINICAL HISTORY: Postop transmetatarsal amputation COMPARISON: 06/14/2019 FINDINGS: 2 views of the right foot are submitted. Bandage artifact overlies the region of interest. 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 There is an expected postoperative appearance. Vascular calcifications are present in the lower leg, ankle and foot. A small plantar calcaneal spur is present. There is no radiopaque foreign body. Signed: Mirta Alex Verified Date/Time: 06/19/2019 22:40:02 [facility] [id number] 21:19:00 Test Item Value Reference Range Interpretation Comments POC-GLUCOSE METER 221 mg/dL 70-110 H : TESTED A T [facility] 6720 (NOE) (test code = [place], 1538) [address]: Paving Block Cutter/Techni estefani ID = [id number] for KAVYA WHITMORE POCT-GLUCOSE [id number] 21:06:00 Test Item Value Reference Range Interpretation Comments POC-GLUCOSE METER 214 mg/dL 70-110 H : TESTED A T [facility] 6720 (BEAKER) (test code = [facility], 1538) [address]22: Paving Block Cutter/Techni estefani ID = [id number] for RENEE BOONE, BLESSING POCT-GLUCOSE [id number] 21:05:00 Test Item Value Reference Range Interpretation Comments POC-GLUCOSE METER 131 mg/dL 70-110 H : TESTED A T [facility] 6720 (BEAKER) (test code = [facility], 1538) 62674: Paving Block Cutter/Techni estefani ID = [id number] for RENEE HN, BLESSING POCT-GLUCOSE [id number] 21:05:00 Test Item Value Reference Range Interpretation Comments POC-GLUCOSE METER 131 mg/dL 70-110 H : TESTED A T [facility] 6720 (BEAKER) (test code = [facility], 1538) 89272: Paving Block Cutter/Techni estefani ID = [id number] for RENEE BOONE, BLESSING ECG 12 [id number] 18:07:02Interface, External Ris In - 06/19/2019 6:07 PM CDTVentricular Rate 67 BPMAtrial Rate 67 BPMP-R Interval 140 msQRS Duration 88 msQ-T Interval 446 msQTC Calculation(Bazett) 471 msP [place] 29 degreesR [place] -24 degreesT [place] 38 degreesNormal sinus rhythmPoor R wave progression Cannot rule out Possible Anterior infarct , age undeterminedProlonged QTAbnormal ECGNo previous ECGs availableConfirmed by Stella GOMEZ BASANT ([id number]) on 06/19/2019 6:07:01 [facility] [id number] 12:01:00 Test Item Value Reference Range Interpretation Comments POC-GLUCOSE METER 135 mg/dL 70-110 H : TESTED A T [facility] 6720 (BEAKER) (test code = [facility], 1538) 47102: Paving Block Cutter/Techni estefani ID = [id number] for GABRIELA OLMSTEAD POCT-GLUCOSE [id number] 09:10:00 Test Item Value Reference Range Interpretation Comments POC-GLUCOSE METER 200 mg/dL 70-110 H : TESTED A T [facility] 6720 (BEAKER) (test code = [facility] [place], 1538) 18782: Paving Block Cutter/Techni estefani ID = [id number] for FRANCK SKELTON CBC W/PLT COUNT & AUTO [id number] 05:34:00 Test Item Value Reference Range Interpretation Comments WHITE BLOOD CELL COUNT (BEAKER) 15.5 K/ L 3.5-10.5 H (test code = 775) RED BLOOD CELL COUNT (BEAKER) 3.60 M/ L 4.63-6.08 L (test code = 761) HEMOGLOBIN (BEAKER) (test code = 10.4 GM/DL 13.7-17.5 L 410) HEMATOCRIT (BEAKER) (test code = 33.2 % 40.1-51.0 L 411) MEAN CORPUSCULAR VOLUME (BEAKER) 92.2 fL 79.0-92.2 (test code = 753) MEAN CORPUSCULAR HEMOGLOBIN 28.9 pg 25.7-32.2 (BEAKER) (test code = 751) MEAN CORPUSCULAR HEMOGLOBIN CONC 31.3 GM/DL 32.3-36.5 L (BEAKER) (test code = 752) RED CELL DISTRIBUTION WIDTH 13.5 % 11.6-14.4 (BEAKER) (test code = 412) PLATELET COUNT (BEAKER) (test 374 K/CU MM 150-450 code = 756) MEAN PLATELET VOLUME (BEAKER) 9.9 fL 9.4-12.4 (test code = 754) NUCLEATED RED BLOOD CELLS 0 /100 WBC 0-0 (BEAKER) (test code = 413) NEUTROPHILS RELATIVE PERCENT 79 % (BEAKER) (test code = 429) LYMPHOCYTES RELATIVE PERCENT 8 % (BEAKER) (test code = 430) MONOCYTES RELATIVE PERCENT 8 % (BEAKER) (test code = 431) EOSINOPHILS RELATIVE PERCENT 3 % (BEAKER) (test code = 432) BASOPHILS RELATIVE PERCENT 1 % (BEAKER) (test code = 437) NEUTROPHILS ABSOLUTE COUNT 12.28 K/ L 1.78-5.38 H (BEAKER) (test code = 670) LYMPHOCYTES ABSOLUTE COUNT 1.16 K/ L 1.32-3.57 L (BEAKER) (test code = 414) MONOCYTES ABSOLUTE COUNT (BEAKER) 1.21 K/ L 0.30-0.82 H (test code = 415) EOSINOPHILS ABSOLUTE COUNT 0.50 K/ L 0.04-0.54 (BEAKER) (test code = 416) BASOPHILS ABSOLUTE COUNT (BEAKER) 0.11 K/ L 0.01-0.08 H (test code = 417) IMMATURE GRANULOCYTES-RELATIVE 2 % 0-1 H PERCENT (BEAKER) (test code = 2801) BASIC METABOLIC [id number] 05:28:00 Test Item Value Reference Range Interpretation Comments SODIUM (BEAKER) 131 meq/L 136-145 L (test code = 381) POTASSIUM (BEAKER) 4.8 meq/L 3.5-5.1 (test code = 379) CHLORIDE (BEAKER) 94 meq/L 98-107 L (test code = 382) CO2 (BEAKER) (test 26 meq/L 22-29 code = 355) BLOOD UREA NITROGEN 57 mg/dL 7-21 H (BEAKER) (test code = 354) CREATININE (BEAKER) 8.55 mg/dL 0.57-1.25 H (test code = 358) GLUCOSE RANDOM 151 mg/dL 70-105 H (BEAKER) (test code = 652) CALCIUM (BEAKER) 7.8 mg/dL 8.4-10.2 L (test code = 697) EGFR (BEAKER) (test 6 mL/min/1.73 ESTIMAT ED GFR IS code = 1092) sq m NOT ACCURATE CREATININE CLEARANCE IN PREDICTING GLOMERULAR FILTRATION RATE . ESTIMATED GFR I S NOT APPLICABLE FOR DIALYSIS PATIEN TS. Paving Block Cutter ID - BASSEM [id number] 05:27:00 Test Item Value Reference Range Interpretation Comments PHOSPHORUS (BEAKER) (test code = 6.7 mg/dL 2.3-4.7 H 604) Paving Block Cutter ID - BASSEM [id number] 05:27:00 Test Item Value Reference Range Interpretation Comments MAGNESIUM (BEAKER) (test code = 2.3 mg/dL 1.6-2.6 627) Paving Block Cutter ID - BASSEM WVANCOMYCIN LEVEL, [id number] 05:25:00 Test Item Value Reference Range Interpretation Comments VANCOMYCIN RANDOM (BEAKER) (test 21.5 ug/mL code = 523) Reference Range: No NormalsOperator ID - BASSEM WPOCT-GLUCOSE [id number] 17:28:00 Test Item Value Reference Range Interpretation Comments POC-GLUCOSE METER 173 mg/dL 70-110 H : TESTED A T [facility] 6720 (BEAKER) (test code = [facility], 1538) 34234: Paving Block Cutter/Techni estefani ID = [id number] for OR RENAN, DALE POCT-GLUCOSE [id number] 14:19:00 Test Item Value Reference Range Interpretation Comments POC-GLUCOSE METER 133 mg/dL 70-110 H : TESTED A T [facility] 6720 (BEAKER) (test code = [facility], 1538) 25883: Paving Block Cutter/Techni estefani ID = [id number] for OR PHEY, DALE POCT-GLUCOSE [id number] 10:35:00 Test Item Value Reference Range Interpretation Comments POC-GLUCOSE METER 119 mg/dL 70-110 H : TESTED A T [facility] 6720 (BEAKER) (test code = [facility], 1538) 20950: Paving Block Cutter/Techni estefani ID = [id number] for Joseph andersondian Sonya CBC W/PLT COUNT & AUTO [id number] 05:31:00 Test Item Value Reference Range Interpretation Comments WHITE BLOOD CELL COUNT (BEAKER) 16.3 K/ L 3.5-10.5 H (test code = 775) RED BLOOD CELL COUNT (BEAKER) 3.26 M/ L 4.63-6.08 L (test code = 761) HEMOGLOBIN (BEAKER) (test code = 9.9 GM/DL 13.7-17.5 L 410) HEMATOCRIT (BEAKER) (test code = 30.7 % 40.1-51.0 L 411) MEAN CORPUSCULAR VOLUME (BEAKER) 94.2 fL 79.0-92.2 H (test code = 753) MEAN CORPUSCULAR HEMOGLOBIN 30.4 pg 25.7-32.2 (BEAKER) (test code = 751) MEAN CORPUSCULAR HEMOGLOBIN CONC 32.2 GM/DL 32.3-36.5 L (BEAKER) (test code = 752) RED CELL DISTRIBUTION WIDTH 13.5 % 11.6-14.4 (BEAKER) (test code = 412) PLATELET COUNT (BEAKER) (test 353 K/CU MM 150-450 code = 756) MEAN PLATELET VOLUME (BEAKER) 10.0 fL 9.4-12.4 (test code = 754) NUCLEATED RED BLOOD CELLS 0 /100 WBC 0-0 (BEAKER) (test code = 413) NEUTROPHILS RELATIVE PERCENT 75 % (BEAKER) (test code = 429) LYMPHOCYTES RELATIVE PERCENT 11 % (BEAKER) (test code = 430) MONOCYTES RELATIVE PERCENT 8 % (BEAKER) (test code = 431) EOSINOPHILS RELATIVE PERCENT 3 % (BEAKER) (test code = 432) BASOPHILS RELATIVE PERCENT 1 % (BEAKER) (test code = 437) NEUTROPHILS ABSOLUTE COUNT 12.20 K/ L 1.78-5.38 H (BEAKER) (test code = 670) LYMPHOCYTES ABSOLUTE COUNT 1.79 K/ L 1.32-3.57 (BEAKER) (test code = 414) MONOCYTES ABSOLUTE COUNT (BEAKER) 1.32 K/ L 0.30-0.82 H (test code = 415) EOSINOPHILS ABSOLUTE COUNT 0.53 K/ L 0.04-0.54 (BEAKER) (test code = 416) BASOPHILS ABSOLUTE COUNT (BEAKER) 0.15 K/ L 0.01-0.08 H (test code = 417) IMMATURE GRANULOCYTES-RELATIVE 2 % 0-1 H PERCENT (BEAKER) (test code = 2801) BASIC METABOLIC [id number] 05:17:00 Test Item Value Reference Range Interpretation Comments SODIUM (BEAKER) 132 meq/L 136-145 L (test code = 381) POTASSIUM (BEAKER) 5.1 meq/L 3.5-5.1 (test code = 379) CHLORIDE (BEAKER) 95 meq/L 98-107 L (test code = 382) CO2 (BEAKER) (test 22 meq/L 22-29 code = 355) BLOOD UREA NITROGEN 82 mg/dL 7-21 H (BEAKER) (test code = 354) CREATININE (BEAKER) 11.11 mg/dL 0.57-1.25 H (test code = 358) GLUCOSE RANDOM 100 mg/dL 70-105 (BEAKER) (test code = 652) CALCIUM (BEAKER) 7.6 mg/dL 8.4-10.2 L (test code = 697) EGFR (BEAKER) (test 5 mL/min/1.73 ESTIMAT ED GFR IS code = 1092) sq m NOT ACCURATE CREATININE CLEARANCE IN PREDICTING GLOMERULAR FILTRATION RATE . ESTIMATED GFR I S NOT APPLICABLE FOR DIALYSIS PATIEN TS. Paving Block Cutter ID - JAQUELINE [id number] 05:16:00 Test Item Value Reference Range Interpretation Comments PHOSPHORUS (BEAKER) (test code = 7.5 mg/dL 2.3-4.7 H 604) Paving Block Cutter ID - JAQUELINE [id number] 05:16:00 Test Item Value Reference Range Interpretation Comments MAGNESIUM (BEAKER) (test code = 2.4 mg/dL 1.6-2.6 627) Paving Block Cutter ID - JAQUELINE MVancomycin level, [id number] 05:04:00 Test Item Value Reference Range Interpretation Comments Vancomycin Tr (test code = 25.9 ug/mL 10-20 H 4092-3) MITCHELL (test code = MITCHELL) Paving Block Cutter ID - JAQUELINE M Lab Interpretation (test Abnormal code = 67939-5) [facility], [id number] 05:04:00 Test Item Value Reference Range Interpretation Comments VANCOMYCIN TROUGH (BEAKER) (test 25.9 ug/mL 10.0-20.0 H code = 522) Paving Block Cutter ID - JAQUELINE MPOCT-GLUCOSE [id number] 21:00:00 Test Item Value Reference Range Interpretation Comments POC-GLUCOSE METER 148 mg/dL 70-110 H : TESTED A T [facility] 6720 (BEAKER) (test code = [facility] [employer] [facility], 153) 55689: Paving Block Cutter/Techni estefani ID = [id number] for BRADEN RANKINO POCT-GLUCOSE [id number] 19:14:00 Test Item Value Reference Range Interpretation Comments POC-GLUCOSE METER 137 mg/dL 70-110 H : TESTED A T [facility] 6720 (BEAKER) (test code = [facility] [employer] [facility], 1538) 83580: Paving Block Cutter/Techni estefani ID = [id number] for VAHID HILLGABRIELA [place] POCT-GLUCOSE [id number] 17:46:00 Test Item Value Reference Range Interpretation Comments POC-GLUCOSE METER 205 mg/dL 70-110 H : TESTED A T [facility] 6720 (BEAKER) (test code = DASIA Garcia [facility], 1538) 35834: Paving Block Cutter/Techni estefani ID = [id number] for CAMILLE BETTS POCT-GLUCOSE [id number] 17:05:00 Test Item Value Reference Range Interpretation Comments POC-GLUCOSE METER 197 mg/dL 70-110 H : TESTED A T [facility] 6720 (BEAKER) (test code = DAS[facility] Garcia [facility], 1538) 14564: Paving Block Cutter/Techni estefani ID = [id number] for CAMILLE BETTS BASIC METABOLIC [id number] 05:57:00 Test Item Value Reference Range Interpretation Comments SODIUM (BEAKER) 130 meq/L 136-145 L (test code = 381) POTASSIUM (BEAKER) 4.8 meq/L 3.5-5.1 (test code = 379) CHLORIDE (BEAKER) 95 meq/L 98-107 L (test code = 382) CO2 (BEAKER) (test 24 meq/L 22-29 code = 355) BLOOD UREA NITROGEN 69 mg/dL 7-21 H (BEAKER) (test code = 354) CREATININE (BEAKER) 9.42 mg/dL 0.57-1.25 H (test code = 358) GLUCOSE RANDOM 160 mg/dL 70-105 H (BEAKER) (test code = 652) CALCIUM (BEAKER) 7.7 mg/dL 8.4-10.2 L (test code = 697) EGFR (BEAKER) (test 6 mL/min/1.73 ESTIMAT ED GFR IS code = 1092) sq m NOT ACCURATE CREATININE CLEARANCE IN PREDICTING GLOMERULAR FILTRATION RATE . ESTIMATED GFR I S NOT APPLICABLE FOR DIALYSIS PATIEN TS. Paving Block Cutter ID - DANITZA [id number] 05:54:00 Test Item Value Reference Range Interpretation Comments PHOSPHORUS (BEAKER) (test code = 6.2 mg/dL 2.3-4.7 H 604) Paving Block Cutter ID - DANITZA [id number] 05:54:00 Test Item Value Reference Range Interpretation Comments MAGNESIUM (BEAKER) (test code = 2.2 mg/dL 1.6-2.6 627) Paving Block Cutter ID - DANITZA LCBC W/PLT COUNT & AUTO [id number] 05:44:00 Test Item Value Reference Range Interpretation Comments WHITE BLOOD CELL COUNT (BEAKER) 15.8 K/ L 3.5-10.5 H (test code = 775) RED BLOOD CELL COUNT (BEAKER) 3.52 M/ L 4.63-6.08 L (test code = 761) HEMOGLOBIN (BEAKER) (test code = 10.1 GM/DL 13.7-17.5 L 410) HEMATOCRIT (BEAKER) (test code = 32.8 % 40.1-51.0 L 411) MEAN CORPUSCULAR VOLUME (BEAKER) 93.2 fL 79.0-92.2 H (test code = 753) MEAN CORPUSCULAR HEMOGLOBIN 28.7 pg 25.7-32.2 (BEAKER) (test code = 751) MEAN CORPUSCULAR HEMOGLOBIN CONC 30.8 GM/DL 32.3-36.5 L (BEAKER) (test code = 752) RED CELL DISTRIBUTION WIDTH 13.5 % 11.6-14.4 (BEAKER) (test code = 412) PLATELET COUNT (BEAKER) (test 337 K/CU MM 150-450 code = 756) MEAN PLATELET VOLUME (BEAKER) 10.2 fL 9.4-12.4 (test code = 754) NUCLEATED RED BLOOD CELLS 0 /100 WBC 0-0 (BEAKER) (test code = 413) NEUTROPHILS RELATIVE PERCENT 78 % (BEAKER) (test code = 429) LYMPHOCYTES RELATIVE PERCENT 8 % (BEAKER) (test code = 430) MONOCYTES RELATIVE PERCENT 9 % (BEAKER) (test code = 431) EOSINOPHILS RELATIVE PERCENT 3 % (BEAKER) (test code = 432) BASOPHILS RELATIVE PERCENT 1 % (BEAKER) (test code = 437) NEUTROPHILS ABSOLUTE COUNT 12.37 K/ L 1.78-5.38 H (BEAKER) (test code = 670) LYMPHOCYTES ABSOLUTE COUNT 1.32 K/ L 1.32-3.57 (BEAKER) (test code = 414) MONOCYTES ABSOLUTE COUNT (BEAKER) 1.34 K/ L 0.30-0.82 H (test code = 415) EOSINOPHILS ABSOLUTE COUNT 0.40 K/ L 0.04-0.54 (BEAKER) (test code = 416) BASOPHILS ABSOLUTE COUNT (BEAKER) 0.11 K/ L 0.01-0.08 H (test code = 417) IMMATURE GRANULOCYTES-RELATIVE 2 % 0-1 H PERCENT (BEAKER) (test code = 2801) POCT-GLUCOSE [id number] 21:37:00 Test Item Value Reference Range Interpretation Comments POC-GLUCOSE METER 262 mg/dL 70-110 H : TESTED A T [facility] 6720 (BEAKER) (test code = [facility], 1538) 84477: Paving Block Cutter/Techni estefani ID = [id number] for KEIRY WHITMOREO POCT-GLUCOSE [id number] 16:44:00 Test Item Value Reference Range Interpretation Comments POC-GLUCOSE METER 203 mg/dL 70-110 H : TESTED A T [facility] 6720 ([facility]) (test code = [facility], 1538) 16890: Paving Block Cutter/Techni estefani ID = [id number] for NATE MONROY POCT-GLUCOSE [id number] 12:05:00 Test Item Value Reference Range Interpretation Comments POC-GLUCOSE METER 233 mg/dL 70-110 H : TESTED A T [facility] 6720 ([facility]) (test code = [facility], 1538) 47768: Paving Block Cutter/Techni estefani ID = [id number] for HU NTER, HIWITHA POCT-GLUCOSE [id number] 08:18:00 Test Item Value Reference Range Interpretation Comments POC-GLUCOSE METER 146 mg/dL 70-110 H : TESTED A T [facility] 6720 ([facility]) (test code = [facility], 1538) 28987: Paving Block Cutter/Techni estefani ID = [id number] for HU NTER, HIWITHA Manual [id number] 07:32:00 Test Item Value Reference Range Interpretation Comments % Neutros (test code = 78 % 2815) % Lymphs (test code = 4 % 2816) % Monos (test code = 10 % 2817) % Baso (test code = 1 % 2819) % Metamyelo (test code = 1 % 0-0 H 2820) % Bands (test code = 6 % 0-10 2825) # Neutros (test code = 12.95 K/ul 1.78-5.38 H 2830) # Lymphs (test code = 0.66 K/ul 1.32-3.57 L 283) # Monos (test code = 1.66 K/uL 0.3-0.82 H 2832) # Baso (test code = 0.17 K/uL 0.01-0.08 H 2835) # Metamyelo (test code = 0.17 K/uL 0-0 H 2836) # Bands (test code = 1.00 K/uL 0-0.8 H 2840) Total Counted (test code 100 = 1351) WBC Morphology (test Normal code = 487) Platelet Morphology Normal (test code = 486) Polychromasia (test code 1+ few = 478) Artifact (test code = Present 3432) Platelet Conc (test code Adequate = 3438) MITCHELL (test code = MITCHELL) Paving Block Cutter ID - Roseanne OverholtUser comments: Slide comments: Lab Interpretation (test Abnormal code = 02456-2) [facility] W/PLT COUNT & AUTO [id number] 07:32:00 Test Item Value Reference Range Interpretation Comments WHITE BLOOD CELL COUNT (BEAKER) 16.6 K/ L 3.5-10.5 H (test code = 775) RED BLOOD CELL COUNT (BEAKER) 3.41 M/ L 4.63-6.08 L (test code = 761) HEMOGLOBIN (BEAKER) (test code = 10.3 GM/DL 13.7-17.5 L 410) HEMATOCRIT (BEAKER) (test code = 32.3 % 40.1-51.0 L 411) MEAN CORPUSCULAR VOLUME (BEAKER) 94.7 fL 79.0-92.2 H (test code = 753) MEAN CORPUSCULAR HEMOGLOBIN 30.2 pg 25.7-32.2 (BEAKER) (test code = 751) MEAN CORPUSCULAR HEMOGLOBIN CONC 31.9 GM/DL 32.3-36.5 L (BEAKER) (test code = 752) RED CELL DISTRIBUTION WIDTH 13.6 % 11.6-14.4 (BEAKER) (test code = 412) PLATELET COUNT (BEAKER) (test 346 K/CU MM 150-450 code = 756) MEAN PLATELET VOLUME (BEAKER) 10.0 fL 9.4-12.4 (test code = 754) NUCLEATED RED BLOOD CELLS 0 /100 WBC 0-0 (BEAKER) (test code = 413) (CELLAVISION MANUAL DIFF)2019-06-16 07:32:00 Test Item Value Reference Range Interpretation Comments NEUTROPHILS - REL 78 % (CELLAVISION)(BEAKER) (test code = 2816) LYMPHOCYTES - REL 4 % (CELLAVISION)(BEAKER) (test code = 2817) MONOCYTES - REL 10 % (CELLAVISION)(BEAKER) (test code = 2818) BASOPHILS - REL 1 % (CELLAVISION)(BEAKER) (test code = 2820) METAMYELOCYTES - REL 1 % 0-0 H (CELLAVISION)(BEAKER) (test code = 2821) BANDS - REL (CELLAVISION)(BEAKER) 6 % 0-10 (test code = 2826) NEUTROPHILS - ABS 12.95 K/ul 1.78-5.38 H (CELLAVISION)(BEAKER) (test code = 2830) LYMPHOCYTES - ABS 0.66 K/ul 1.32-3.57 L (CELLAVISION)(BEAKER) (test code = 2831) MONOCYTES - ABS 1.66 K/uL 0.30-0.82 H (CELLAVISION)(BEAKER) (test code = 2832) BASOPHILS - ABS 0.17 K/uL 0.01-0.08 H (CELLAVISION)(BEAKER) (test code = 2835) METAMYELOCYTES - ABS 0.17 K/uL 0.00-0.00 H (CELLAVISION)(BEAKER) (test code = 2836) BANDS - ABS (CELLAVISION)(BEAKER) 1.00 K/uL 0.00-0.80 H (test code = 2840) TOTAL COUNTED (BEAKER) (test code 100 = 1351) WBC MORPHOLOGY (BEAKER) (test code Normal = 487) PLT MORPHOLOGY (BEAKER) (test code Normal = 486) POLYCHROMATOPHILLIC RBCS(BEAKER) 1+ few (test code = 478) ARTIFACT (CELLAVISION)(BEAKER) Present (test code = 3432) PLATELET CONCENTRATION Adequate (CELLAVISION)(BEAKER) (test code = 3438) Paving Block Cutter ID - Roseanne OverholtUser comments: Slide comments:BASIC METABOLIC PANEL 2019-06-16 06:34:00 Test Item Value Reference Range Interpretation Comments SODIUM (BEAKER) 134 meq/L 136-145 L (test code = 381) POTASSIUM (BEAKER) 5.0 meq/L 3.5-5.1 (test code = 379) CHLORIDE (BEAKER) 97 meq/L 98-107 L (test code = 382) CO2 (BEAKER) (test 25 meq/L 22-29 code = 355) BLOOD UREA NITROGEN 50 mg/dL 7-21 H (BEAKER) (test code = 354) CREATININE (BEAKER) 7.52 mg/dL 0.57-1.25 H (test code = 358) GLUCOSE RANDOM 157 mg/dL 70-105 H (BEAKER) (test code = 652) CALCIUM (BEAKER) 7.9 mg/dL 8.4-10.2 L (test code = 697) EGFR (BEAKER) (test 7 mL/min/1.73 ESTIMAT ED GFR IS code = 1092) sq m NOT ACCURATE CREATININE CLEARANCE IN PREDICTING GLOMERULAR FILTRATION RATE . ESTIMATED GFR I S NOT APPLICABLE FOR DIALYSIS PATIEN TS. Paving Block Cutter ID - JAQUELINE [id number] 06:29:00 Test Item Value Reference Range Interpretation Comments PHOSPHORUS (BEAKER) (test code = 4.9 mg/dL 2.3-4.7 H 604) Paving Block Cutter ID - JAQUELINE [id number] 06:29:00 Test Item Value Reference Range Interpretation Comments MAGNESIUM (BEAKER) (test code = 2.2 mg/dL 1.6-2.6 627) Paving Block Cutter ID - JAQUELINE MVANCOMYCIN LEVEL, [id number] 06:23:00 Test Item Value Reference Range Interpretation Comments VANCOMYCIN RANDOM (BEAKER) (test 31.1 ug/mL code = 523) Reference Range: No NormalsOperator ID - JAQUELINE MPOCT-GLUCOSE [id number] 21:18:00 Test Item Value Reference Range Interpretation Comments POC-GLUCOSE METER 233 mg/dL 70-110 H : TESTED A T [facility] 6720 (BEAKER) (test code = [facility] [place], 1538) 27397: Paving Block Cutter/Techni estefani ID = [id number] for KAVYA WHITMORE POCT-GLUCOSE [id number] 17:24:00 Test Item Value Reference Range Interpretation Comments POC-GLUCOSE METER 252 mg/dL 70-110 H : TESTED A T [facility] 6720 (BEAKER) (test code = [facility], 1538) 09090: Paving Block Cutter/Techni estefani ID = [id number] for HU NTER, HIWITHA POCT-GLUCOSE [id number] 17:24:00 Test Item Value Reference Range Interpretation Comments POC-GLUCOSE METER 124 mg/dL 70-110 H : TESTED A T [facility] 6720 (BEAKER) (test code = [facility], 1538) 06697: Paving Block Cutter/Techni estefani ID = [id number] for HU NTER, HIWITHA POC ACTIVATED CLOTTING [id number] 12:41:00 Test Item Value Reference Range Interpretation Comments Activated Clotting Time 241 sec : 74 -137 seconds, (test code = 441) Baseline: TESTED AT [facility] 67[address] [facility], [address]: Paving Block Cutter/Techni estefani ID = [id number] for [facility]STAL SHAH [id number][id number] 12:41:00 Test Item Value Reference Range Interpretation Comments ACTIVATED CLOTTING TIME 241 sec : 74 -137 seconds, (BEAKER) (test code = Baseli ne: TESTED AT [facility]) [address], [address]70 [address]: Paving Block Cutter/Techni estefani ID = [id number] for FE CRYSTAL SOTELO Arterial Doppler Leg, [id number] 10:44:41Ejection FractionSLEH ECHO HEARTLAB MKCKESSON CPACSRight Impression1. The common femoral, profunda femoral , superficial femoral and poplitealarteries are patent with calcified plaque and triphasic doppler throughout.2. The peroneal artery was not visualized.3. There is no flow visualized in the proximal-mid posterior tibial artery.4. The distal posterior tibial artery is patent with a low velocity of 12/0cm/sec and monophasic doppler waveforms throughout.5. The anterior tibial artery is patent withcalcified plaque and monophasicdoppler waveforms throughout. Conclusions Summary Arterial Doppleranalysis were performed on the right lower extremity. The arteries were adequately visualized exceptas stated above. The common femoral, profunda femoral [...] in cm/s ; Diameters are measured in cmLE Duplex Measurements Right Left + + + + + + + ------+ + + !Location ! !PSV !EDV !Waveform ! !PSV !EDV !Waveform ! + + + + + + + + + + !Mid Common Femoral! !116 !10.2 ! ! + + + + + + !Prox PFA ! !88 !13.4 ! ! + + + -------+ + + !Prox SFA ! !89.6 !14.9 [...] + + + + + + !Prox FORM WORKER ! !0 ! ! ! + + +--------- ---------+ + + !Mid FORM WORKER ! !0 ! ! ! + + + + + + !Dist FORM WORKER ! !12.2 ! ! ! + + + + + + !Prox MARTY ! !17.3 ! ! ! + + + + + + !Mid MARTY ! !30.6 !10.4 ! ! + + + + + + !Dist MARTY ! !34.6 !9.63 ! ! + + + + + + Interface, External Ris In - 06/15/2019 10:44 AM CDTPV LAB- Lower Extremity Arterial Duplex Demographics Patient Name BARBARA GRIJALVA Date of Study 06/14/2019 Age 58 Visit Number [id number] Gender Male Accession Number [id number] Date of 1960 Referring Pepper Hagan Room Number 7601 Physician Electronic Warfare Linguist Matthew Saucedo Interpreting Celi Morgan [facility] Physician ProcedureType of Study: Extremities Arteries: Lower Extremities Arterial Duplex, ARTERIAL DOPPLER LEG, RIGHT. Indications for Study:Gangrene.Patient Status:Routine.Study Location:Vascular Lab.Technical Quality:Adequate visualization.Risk FactorsHistory of Disease+---------+----+ +!Diagnosis!Date!Comments !+---------+----+ +!Ot her ! !Amputation of right 2nd and 3rd digits, DM, Know PVD, !! ! !Gangrene !+---------+----+ +ImpressionsRight Impression1. The common femoral, profunda femoral , superficial femoral and poplitealarteries are patent with calcified plaque and triphasic doppler throughout.2. Theperoneal artery was not visualized.3. There is no flow visualized in the proximal-mid posterior tibial artery.4. The distal posterior tibial artery is patent with a low velocity of 12/0cm/sec and monophasic doppler waveforms throughout.5. The anterior tibial artery is patent with calcified plaque and monophasicdoppler waveforms throughout. Conclusions Summary Arterial Doppler analysis [...] artery. The distal posterior tibial artery was patentwith a low velocity of 12/0 cm/sec and monophasic doppler waveforms throughout. The anterior tibial artery was patent with calcified plaque and monophasic doppler waveforms throughout. Signature ----- Velocities are measured in cm/s ; Diameters are measured in cmLE Duplex Measurements Right Left + + +- + + + + + + + [...] ! ! + + + + + +!Prox Popliteal ! !83.3 !14.1 ! ! + + +------ + + + !Mid Popliteal ! !69 !10 ! ! + + + + + + !Dist Popliteal ! !79.7 !10.6 ! ! + + + + + + !Prox FORM WORKER ! !0 ! ! ! + + + + + + !Mid FORM WORKER ! !0 ! ! ! + + + + + + !Dist FORM WORKER ! !12.2 ! ! ! + + + + + + !Prox MARTY ! !17.3 ! ! ! + + + + + + !Mid MARTY ! !30.6 !10.4 ! ! + + +---- + + + !Dist MARTY ! !34.6 !9.63 ! ! + + + + + +[facility] and DP Doppler [id number] 10:44:15Ejection [facility] ECHO HEARTLAB MKCKESSON CPACSRight Impression1. The posterior tibial and dorsalis pedis arteries are patent with normalbiphasic/ monophasic doppler waveforms throughout.2. The DP and PT ANDREA's were within the noncompressible range.3. Thee is no flow to the 1st digit by PPG waveforms.4. The 2nd and 3rd digits are amputated.5. The 4th and 5th digits were not obtained due to wound and bandage.6. The TBI was no obtained due to absent flow by PPG waveforms.Left Impression1. The posterior tibial and dorsalis pedis arteries are patent with biphasicdoppler waveforms.2. The DP and PT ANDREA's were within the noncompressible range.3. The digits were amputated.4. The TBI was not obtained due to amputation. Conclusions Summary Arterial pressures were performed bilaterally. [...] cm/s ; Diameters are measured in cm Interface, External Ris In - 06/15/2019 10:44 AM CDTPV LAB - Lower Extremity Arterial Procedure Demographics Patient Name BARBARA GRIJALVA Date of Study 06/14/2019 Age 58 Visit Number [id number] Gender Male Accession Number [id number] of 1960 Referring [facility] Room Number 7601 Physician Electronic Warfare Linguist Matthew Saucedo Interpreting Celi Morgan T Physician ProcedureType of Study: Extremities Arteries: Lower Extremity Arterial Procedure, ARTERIAL (ANDREA'S W/DOPPLER) ONLY. Indications for Study:Gangrene.Patient Status:Routin e.Study Location:Portable.Technical Quality:Adequate visualization.Risk FactorsHistory of Disease+--- ------+----+ +!Diagnos is!Date!Comments !+---------+----+ +!Other ! !Amputation of right 2nd and 3rd digits, DM, Know PVD, !! ! !Gangrene !+---------+----+ +ImpressionsRight Impression1. The posterior tibial and dorsalis pedis arteries are patent with normalbiphasic/ monophasic doppler waveforms throughout.2.The DP and PT ANDREA's were within the noncompressible range.3. Thee is no flow to the 1st digit by PPGwaveforms.4. The 2nd and 3rd digits are amputated.5. The 4th and 5th digits were not obtained due towound and bandage.6. The TBI was no obtained due to absent flow by PPG waveforms.Left Impression1. The posterior tibial and dorsalis pedis arteries are patent with biphasicdoppler waveforms.2. The DP and PT ANDREA's were within the noncompressible range.3. The digits were amputated.4. The TBI was not obtained due to amputation. Conclusions Summary Arterial pressures were performed bilaterally. Dopplerwaveforms were biphasic/monophasic bilaterally. The right and left ANDREA's were within within the noncompressible range. On the right, Thee was no flow to the 1st digit by PPG waveforms. The 2nd and 3rd digits were amputated. The 4th and 5th digits were not obtained due to wound and bandage. The TBI wasno obtained due to absent flow by PPG waveforms. The left digits were amputated. Signature -------- Velocities are measured in cm/s ; Diameters are measured in [facility] ABORH, [id number] 10:36:00 Test Item Value Reference Range Interpretation Comments ABO Grouping (test code = 2588) O Rh Factor (test code = 2589) POS [facility] B surface [id number] 04:57:00 Test Item Value Reference Range Interpretation Comments HBsAg Screen (test code = Nonreactive Nonreactive 5195-3) MITCHELL (test code = MITCHELL) Paving Block Cutter ID - LM Lab Interpretation (test Normal code = 52974-6) [facility] B SURFACE [id number] 04:57:00 Test Item Value Reference Range Interpretation Comments HEPATITIS B SURFACE ANTIGEN (2) Nonreactive Nonreactive (BEAKER) (test code = 2585) Paving Block Cutter ID - LMBASIC METABOLIC [id number] 04:38:00 Test Item Value Reference Range Interpretation Comments SODIUM (BEAKER) 133 meq/L 136-145 L (test code = 381) POTASSIUM (BEAKER) 4.6 meq/L 3.5-5.1 (test code = 379) CHLORIDE (BEAKER) 97 meq/L 98-107 L (test code = 382) CO2 (BEAKER) (test 22 meq/L 22-29 code = 355) BLOOD UREA NITROGEN 70 mg/dL 7-21 H (BEAKER) (test code = 354) CREATININE (BEAKER) 9.73 mg/dL 0.57-1.25 H (test code = 358) GLUCOSE RANDOM 140 mg/dL 70-105 H (BEAKER) (test code = 652) CALCIUM (BEAKER) 7.5 mg/dL 8.4-10.2 L (test code = 697) EGFR (BEAKER) (test 6 mL/min/1.73 ESTIMAT ED GFR IS code = 1092) sq m NOT ACCURATE CREATININE CLEARANCE IN PREDICTING GLOMERULAR FILTRATION RATE . ESTIMATED GFR I S NOT APPLICABLE FOR DIALYSIS PATIEN TS. Paving Block Cutter ID - BASSEM [id number] 04:37:00 Test Item Value Reference Range Interpretation Comments PHOSPHORUS (BEAKER) (test code = 5.6 mg/dL 2.3-4.7 H 604) Paving Block Cutter ID - BASSEM [id number] 04:37:00 Test Item Value Reference Range Interpretation Comments MAGNESIUM (BEAKER) (test code = 2.2 mg/dL 1.6-2.6 627) Paving Block Cutter ID - BASSEM WCBC W/PLT COUNT & AUTO [id number] 04:34:00 Test Item Value Reference Range Interpretation Comments WHITE BLOOD CELL COUNT (BEAKER) 15.4 K/ L 3.5-10.5 H (test code = 775) RED BLOOD CELL COUNT (BEAKER) 3.36 M/ L 4.63-6.08 L (test code = 761) HEMOGLOBIN (BEAKER) (test code = 10.3 GM/DL 13.7-17.5 L 410) HEMATOCRIT (BEAKER) (test code = 31.9 % 40.1-51.0 L 411) MEAN CORPUSCULAR VOLUME (BEAKER) 94.9 fL 79.0-92.2 H (test code = 753) MEAN CORPUSCULAR HEMOGLOBIN 30.7 pg 25.7-32.2 (BEAKER) (test code = 751) MEAN CORPUSCULAR HEMOGLOBIN CONC 32.3 GM/DL 32.3-36.5 (BEAKER) (test code = 752) RED CELL DISTRIBUTION WIDTH 13.7 % 11.6-14.4 (BEAKER) (test code = 412) PLATELET COUNT (BEAKER) (test 322 K/CU MM 150-450 code = 756) MEAN PLATELET VOLUME (BEAKER) 9.8 fL 9.4-12.4 (test code = 754) NUCLEATED RED BLOOD CELLS 0 /100 WBC 0-0 (BEAKER) (test code = 413) NEUTROPHILS RELATIVE PERCENT 77 % (BEAKER) (test code = 429) LYMPHOCYTES RELATIVE PERCENT 9 % (BEAKER) (test code = 430) MONOCYTES RELATIVE PERCENT 9 % (BEAKER) (test code = 431) EOSINOPHILS RELATIVE PERCENT 2 % (BEAKER) (test code = 432) BASOPHILS RELATIVE PERCENT 1 % (BEAKER) (test code = 437) NEUTROPHILS ABSOLUTE COUNT 11.85 K/ L 1.78-5.38 H (BEAKER) (test code = 670) LYMPHOCYTES ABSOLUTE COUNT 1.39 K/ L 1.32-3.57 (BEAKER) (test code = 414) MONOCYTES ABSOLUTE COUNT (BEAKER) 1.38 K/ L 0.30-0.82 H (test code = 415) EOSINOPHILS ABSOLUTE COUNT 0.36 K/ L 0.04-0.54 (BEAKER) (test code = 416) BASOPHILS ABSOLUTE COUNT (BEAKER) 0.11 K/ L 0.01-0.08 H (test code = 417) IMMATURE GRANULOCYTES-RELATIVE 2 % 0-1 H PERCENT (BEAKER) (test code = 2801) POCT-GLUCOSE [id number] 22:31:00 Test Item Value Reference Range Interpretation Comments POC-GLUCOSE METER 203 mg/dL 70-110 H : TESTED A T [facility] 6720 (BEAKER) (test code [facility], = 1538) 11351: Paving Block Cutter/Techni estefani ID = [id number] for Eghalie , Emma POCT-GLUCOSE [id number] 21:30:00 Test Item Value Reference Range Interpretation Comments POC-GLUCOSE METER 205 mg/dL 70-110 H : TESTED A T [facility] 6720 (BEAKER) (test code = [facility], 1538) 69471: Paving Block Cutter/Techni estefani ID = [id number] for MAX BOWEN, ARLEN POCT-GLUCOSE [id number] 16:56:00 Test Item Value Reference Range Interpretation Comments POC-GLUCOSE METER 210 mg/dL 70-110 H : TESTED A T [facility] 6720 (BEAKER) (test code = [facility], 153) 58609: Paving Block Cutter/Techni estefani ID = [id number] for MATEUS ROBLES RAD, FOOT, MIN 3 VIEWS, [id number] 15:36:00Reason for exam:->Right foot gangrene, 2nd toe amputationFINAL REPORT Right foot, three views History: Right foot gangrene Comparison:None Findings:The second and third digits have been amputated at the level of the respective metatarsal- phalangeal joints. Moderate vascular calcifications. Plantar and dorsal calcaneal spurs are noted. No additional significant bone or joint space abnormality. Impression:No acute findings in the right foot. Prior second and third digit amputations. Signed: Sonny Perez MDReport Verified Date/Time: 06/14/2019 15:36:18 Reading Location: [facility] C013X Ortho Consult Reading Room XR foot 3 views [id number] 15:36:00Interface, External Ris In - 06/14/2019 3:38 PM CDTFINAL REPORT Right foot, three views History: Right foot gangrene Comparison: None Findings:The second and third digits have been amputated at the level of the respective metatarsal-phalangeal joints. Moderate vascular calcifications. Plantar and dorsal calcaneal spurs are noted. No additional significant bone or joint space abnormality. Impression:No acute findings in the right foot. Prior second and third digit amputations.Signed: Sonny Perez MDReport Verified Date/Time: 06/14/2019 15:36:18 Reading Location: [facility] C013X Ortho Consult Reading Room [facility] [id number] 15:34:00 Test Item Value Reference Range Interpretation Comments SODIUM (BEAKER) 132 meq/L 136-145 L (test code = 381) POTASSIUM (BEAKER) 4.7 meq/L 3.5-5.1 (test code = 379) CHLORIDE (BEAKER) 95 meq/L 98-107 L (test code = 382) CO2 (BEAKER) (test 24 meq/L 22-29 code = 355) BLOOD UREA NITROGEN 58 mg/dL 7-21 H (BEAKER) (test code = 354) CREATININE (BEAKER) 8.59 mg/dL 0.57-1.25 H (test code = 358) GLUCOSE RANDOM 260 mg/dL 70-105 H (BEAKER) (test code = 652) CALCIUM (BEAKER) 7.6 mg/dL 8.4-10.2 L (test code = 697) EGFR (BEAKER) (test 6 mL/min/1.73 ESTIMAT ED GFR IS code = 1092) sq m NOT ACCURATE CREATININE CLEARANCE IN PREDICTING GLOMERULAR FILTRATION RATE . ESTIMATED GFR I S NOT APPLICABLE FOR DIALYSIS PATIEN TS. Paving Block Cutter ID - [id number] 15:33:00 Test Item Value Reference Range Interpretation Comments PHOSPHORUS (BEAKER) (test code = 4.8 mg/dL 2.3-4.7 H 604) Paving Block Cutter ID - [id number] 15:33:00 Test Item Value Reference Range Interpretation Comments MAGNESIUM (BEAKER) (test code = 2.2 mg/dL 1.6-2.6 627) Paving Block Cutter ID - BSCBC W/PLT COUNT & AUTO [id number] 15:20:00 Test Item Value Reference Range Interpretation Comments WHITE BLOOD CELL COUNT (BEAKER) 17.4 K/ L 3.5-10.5 H (test code = 775) RED BLOOD CELL COUNT (BEAKER) 3.56 M/ L 4.63-6.08 L (test code = 761) HEMOGLOBIN (BEAKER) (test code = 10.8 GM/DL 13.7-17.5 L 410) HEMATOCRIT (BEAKER) (test code = 33.2 % 40.1-51.0 L 411) MEAN CORPUSCULAR VOLUME (BEAKER) 93.3 fL 79.0-92.2 H (test code = 753) MEAN CORPUSCULAR HEMOGLOBIN 30.3 pg 25.7-32.2 (BEAKER) (test code = 751) MEAN CORPUSCULAR HEMOGLOBIN CONC 32.5 GM/DL 32.3-36.5 (BEAKER) (test code = 752) RED CELL DISTRIBUTION WIDTH 13.6 % 11.6-14.4 (BEAKER) (test code = 412) PLATELET COUNT (BEAKER) (test 336 K/CU MM 150-450 code = 756) MEAN PLATELET VOLUME (BEAKER) 10.1 fL 9.4-12.4 (test code = 754) NUCLEATED RED BLOOD CELLS 0 /100 WBC 0-0 (BEAKER) (test code = 413) NEUTROPHILS RELATIVE PERCENT 83 % (BEAKER) (test code = 429) LYMPHOCYTES RELATIVE PERCENT 6 % (BEAKER) (test code = 430) MONOCYTES RELATIVE PERCENT 8 % (BEAKER) (test code = 431) EOSINOPHILS RELATIVE PERCENT 1 % (BEAKER) (test code = 432) BASOPHILS RELATIVE PERCENT 1 % (BEAKER) (test code = 437) NEUTROPHILS ABSOLUTE COUNT 14.36 K/ L 1.78-5.38 H (BEAKER) (test code = 670) LYMPHOCYTES ABSOLUTE COUNT 1.06 K/ L 1.32-3.57 L (BEAKER) (test code = 414) MONOCYTES ABSOLUTE COUNT (BEAKER) 1.33 K/ L 0.30-0.82 H (test code = 415) EOSINOPHILS ABSOLUTE COUNT 0.25 K/ L 0.04-0.54 (BEAKER) (test code = 416) BASOPHILS ABSOLUTE COUNT (BEAKER) 0.08 K/ L 0.01-0.08 (test code = 417) IMMATURE GRANULOCYTES-RELATIVE 2 % 0-1 H PERCENT (BEAKER) (test code = 2801) POCT-GLUCOSE [id number] 12:22:00 Test Item Value Reference Range Interpretation Comments POC-GLUCOSE METER 242 mg/dL 70-110 H : TESTED A T [facility] 6720 (BEAKER) (test code = [facility], 1538) 76266: Paving Block Cutter/Techni estefani ID = [id number] for MATEUS ROBLES POCT-GLUCOSE [id number] 12:16:00 Test Item Value Reference Range Interpretation Comments POC-GLUCOSE METER 206 mg/dL 70-110 H : TESTED A T [facility] 6720 (BEAKER) (test code = [facility], 1538) 24654: Paving Block Cutter/Techni estefani ID = [id number] for MATUES ROBLES Occult blood, [id number] 16:59:41 Test Item Value Reference Range Interpretation Comments Occult blood, Negative for Specimen stool (test occult blood. InformationSpe cimen code = Source: StoolSp ecimen 2334-1) Site: Nonpreser edmond Song MethodistAnaerobic [id number] 08:36:57 Test Item Value Reference Range Interpretation Comments Anaerobic No anaerobic Specimen culture isolate organisms InformationS pecimen (test code = isolated. Source: WoundSp ecimen 552) Site: Leg Song MethodistGram [id number] 06:06:36 Test Item Value Reference Range Interpretation Comments Gram stain No WBC's or Specimen isolate (test organisms seen. Information Specimen code = 1469) Source: WoundSp ecimen Site: leg [place] MethodistXR Chest 2 [id number] 12:57:15Hm Interface, Radiology Results Incoming - 10/24/2018 1:00 PM CDTEXAMINATION: XR CHEST 2 VWCLINICAL HISTORY: Z98.890 Other specified postprocedural states, Post operative stateCOMPARISON: 08/24/2018 IMPRESSION:There has been median sternotomy. There is mild cardiomegaly. There is small left effusionand basilar volume loss. There is linear atelectasis in the left midlung. Right lung is clear. Thereis no pneumothorax. Visualized osseous structures are intact. [id number] [facility] [id number] 13:11:35 Test Item Value Reference Range Interpretation Comments POC glucose (test code = 121 mg/dL 65-99 H [facility] Notified 32458-1) RNMeter ID: [id number] tor: Jane kennedy Lab Interpretation (test Abnormal code = 82202-4) [facility] metabolic [id number] 06:06:43 Test Item Value Reference Range Interpretation Comments Sodium (test code = 2951-2) 135 135- 148 mEq/L Potassium (test code = 2823-3) 4.5 3.5- 5.0 mEq/L Chloride (test code = 2075-0) 94 98- 112 mEq/L L CO2 (test code = 2028-9) 23 24- 31 mEq/L L Anion gap (test code = 32215-3) 18@ANIO 7- 15 mEq/L H BUN (test code = 3094-0) 67 mg/dL 6-20 H Creatinine (test code = 2160-0) 8.41 mg/dL 0.7-1.2 H Glucose (test code = 2345-7) 146 mg/dL 65-99 H Calcium (test code = 61755-1) 7.9 mg/dL 8.3-10.2 L Lab Interpretation (test code = Abnormal 67797-8) [facility] 12 [id number] 18:45:36 Test Item Value Reference Range Interpretation Comments Ventricular rate (test 111 code = 253) Atrial rate (test code 111 = 255) NC interval (test code 130 = 266) QRSD interval (test 104 code = 260) QT interval (test code 342 = 264) QTC interval (test code 465 = 265) P axis 1 (test code = 39 267) QRS axis 1 (test code = 3 268) T wave axis (test code 17 = 270) EKG impression (test Sinus code = 273) tachycardia-Possible Left atrial enlargement-Inferior infarct (cited on or before 22-SEP-2018)-Lateral injury pattern-^^ ^^ ACUTE [place] ^^ ^^-Abnormal ECG-In automated comparison with ECG of 24-SEP-2018 09:26,-No significant change was found- [place] MethodistEchocardiogram complete w contrast and 3D if [id number] 12:03:00Interface, Radiology Results In - 09/26/2018 12:03 PM CDT Echocardiography Report [id number]Name: BARBARA GRIJALVA Pat.ID: [id number].Date: 09/25/2018 Refer.MD: ABRAHAM MALAVE MD Exam Time: 4:16:00 PM Study Type:Routine Echo Height: 72in BSA: 2.24 m2 Age: 9 1960,57Y Sex: MALE BP: 168/81 HR: 91 bpm Sonogrphr: JESSE Oscar Pat. Stat.:Inpatient Room: 2023 Study Status:Final Echo Event ID:[id number] Order ID: [id number] Reason for Study:S/P CABG History / Clinical:Diabetes, HypertensionProcedures:2D Echo, Colorflow Doppler, Intravenous Definity ContrastRace: C SUMMARY: Small anterior and moderate posterior pericardial effusion. Findings are suggestive of increased intrapericardial pressure Right ventricular diastolic collapse is not present. There is noevidence of cardiac tamponade FINDINGS: LV: LV size is normal. LV EF is normal. Overall wall motion is normal. Estimated EF is 65-69%RV: RV size is normal. RV systolic function is normal.LA: LA size is normal.RA: RA difficult to visualizeAO: Aortic root diameter is normal.ECTOR: Small anterior and moderate posterior pericardial effusion. Findings are suggestive of increased intrapericardial pressure AV: No structural AV abnormalities noted.MV: No structural MV abnormalities noted.PV: Pulmonic valve not well seen.TV: No structural TV abnormalities noted. A trace of tricuspid regurgitation Christensen: LV relaxation is normal. LV fillingpressure is normal. RV respiratory variation is consistent with high pericardial pressure. Other: Insufficient TR jet to estimate PA systolic pressure. -------MEASUREMENTS: 2DParasternal Long [place] Ds 3.9 cm LVPWd 1.5 cm LVOT 2 cm Ao An 2.4 cm LVIDd 4.5 cm Index 2 cm/m2 Ao Rtd 2.8 cm Index 1.2 cm/m2 LVIDs 2.8 cm LV Mass 189.9 g (122-174) LV%fs 39.1 % LVM Index 84.8 g/m2 IVSd 0 .9 cm RWT 0.6 DOPPLERLVOT Stroke Vol LVOT 2.1 cm LVOT CO 6.6 l/min LVOT TVI 19.2 cm LVOT CI 2.9 l/m/m2 LVOT Tm 255 msec HR 99 bpm LVOT SV 66.5 ml Signed 09/26/2018 12:03 PMSu Myles Santana M.D.[facility]Prepar[facility], 1 [id number] 09:52:00 Test Item Value Reference Range Interpretation Comments Product name (test Red Cells AS1 Leukored code = 25) Irrad Unit number (test code [id number] = [id number]) Product code (test E6379Y20 code = 3092) Dispense status (test Transfused code = 24) Blood expiration date (test code = 302) Blood type code (test 5100 code = 308) Blood type (test code O POSITIVE = 1314) Song MethodistType and [id number] 09:27:00 Test Item Value Reference Range Interpretation Comments ABO grouping (test code = 883-9) O Rh type (test code = 06588-5) POS Antibody screen (gel) (test code = NEG 890-4) [place] MethodistSmear [id number] 09:26:37 Test Item Value Reference Range Interpretation Comments Platelet slide review (test code Charmaine adequate = 37980-4) Anisocytosis (test code = 702-1) Moderate Polychromasia (test code = Moderate 19555-4) Ovalocytes (test code = 774-0) Moderate Enlarged platelets (test code = Moderate A 35496-2) Lab Interpretation (test code = Abnormal 83282-4) Song MethodistIonized [id number] 07:05:32 Test Item Value Reference Range Interpretation Comments pH (test code = 2753-2) 7.58 Ionized calcium (test code = 0.93 mmol/L 1.11-1.32 L ) Lab Interpretation (test code = Abnormal 06974-9) Song YarsaniMagnesium [id number] 06:57:17 Test Item Value Reference Range Interpretation Comments Magnesium (test code = 52259-2) 2.3 mg/dL 1.6-2.6 [facility] [id number] 06:41:50 Test Item Value Reference Range Interpretation Comments WBC (test code = 26769-7) 10.82 4.50- 11.00 k/uL RBC (test code = 66745-7) 2.39 m/uL 4.4-6 L HGB (test code = 718-7) 7.3 g/dL 14-18 L HCT (test code = 4544-3) 22.0 % 41-51 L MCV (test code = 787-2) 92.1 fL 82-100 MCH (test code = 785-6) 30.5 pg 27-34 MCHC (test code = 786-4) 33.2 g/dL 31-37 RDW - SD (test code = 11925-4) 49.8 fL 37-55 MPV (test code = 37107-5) 11.3 fL 8.8-13.2 Platelet count (test code = 137 150- 400 k/uL L 34466-8) Nucleated RBC (test code = 0.00 /100 WBC 22635-3) Lab Interpretation (test code = Abnormal 85282-9) [place] MethodistXR Chest 1 Vw [id number] 10:56:32Hm Interface, Radiology Results 09/23/2018 10:59 AM CDTEXAMINATION: XR CHEST 1 VW PORTABLECLINICAL HISTORY: ICU pt recent chest tube removalCOMPARISON: Earlier same day chest radiographIMPRESSION:1. Interval removal of the left-sided chest tube with a trace left apical pneumothorax present.2. Obscuration of left hemidiaphragm and retrocardiac density may represent atelectasis although i nfectious process is not excluded.3. Unchanged cardiomegaly with sternotomy and decreased pneumomediastinum/pneumopericardium.4. Unchanged osseous structures.[facility]-[id number] MethodistHepatitis B surface [id number] 10:32:02 Test Item Value Reference Range Interpretation Comments Hepatitis B surface Ag (test Non-reactive Non-reactive code = 5195-3) Song MethodistLine/Drain Adzszow3494-05-28 10:25:46Baudilio Beck Jr., PA-C 09/23/2018 10:26 AMLine/Drain RemovalDate/Time: 09/23/2018 10:25 AMPerformed by: Baudilio Beck Jr., PA-CAuthorized by: Baudilio Beck Jr., PA-C Pre- procedure details: Line or drain removed: Chest tubeChest Tube Removal: Chest tube removed from suction: Yes Sutures retied: Yes Removal procedure: Number of people performing procedure: 1 Breath held: Yes Dressing applied:: 4x4 sterile gauze and occlusiveHouston MethodistPhosphorus level 2018-09-23 02:27:33 Test Item Value Reference Range Interpretation Comments Phosphorus (test code = 2777-1) 3.5 mg/dL 2.4-4.5 [place] MethodistPotassium [id number] 18:29:34 Test Item Value Reference Range Interpretation Comments Potassium (test code = 2823-3) 5.1 3.5- 5.0 mEq/L H Lab Interpretation (test code = Abnormal 55216-0) [place] MethodistArterial blood [id number] 13:50:55 Test Item Value Reference Range Interpretation Comments pH, arterial (test code = 2744-1) 7.39 7.35-7.45 pCO2, arterial (test code = 38 35- 45 mmHg 2018-10) pO2, arterial (test code = 229 80- 90 mmHg H 2702-7) Bicarbonate, arterial (test code 22.8 mmol/L - = 1960-4) Base excess, arterial (test code -1 -2 - 2 mEq-L = 1925-7) O2 saturation, arterial (test 99 % 95-100 code = 2708-6) Lab Interpretation (test code = Abnormal 11604-3) [place] MethodistIonized calcium, [id number] 13:50:55 Test Item Value Reference Range Interpretation Comments Ionized calcium, arterial (test 1.00 mmol/L 1.11-1.32 L code = 91646-3) Lab Interpretation (test code = Abnormal 78792-3) [place] MethodistActivated clotting [id number] 12:24:04 Test Item Value Reference Range Interpretation Comments Activated clotting time 101 96- 152 sec [facility] r ID: (test code = 5298) [id number] perator: Pamela Landin Song MethodistArterial blood gas, urwnjkeqq2876-99-54 11:43:11 Test Item Value Reference Range Interpretation Comments pH, arterial (test code = 2744-1) 7.31 7.35-7.45 L pCO2, arterial (test code = 2018-10) 54 35- 45 mmHg H pO2, arterial (test code = 2703-7) 255 80- 90 mmHg H Temperature, Celsius (test code = 37.0 Degrees C 8310-5) O2 saturation, arterial (test code = 99 % 95-100 8-6) pH, arterial corrected (test code = 7.31 39378-3) pCO2, arterial corrected (test code 54 mmHg = 85848-8) pO2, arterial corrected (test code = 255 mmHg 17428-0) Base excess, arterial (test code = 0 -2 - 2 mEq-L 1925-7) Lab Interpretation (test code = Abnormal 67280-6) Dnucan MethodistGlucose level, kzyhwyr9041-23-66 11:43:11 Test Item Value Reference Range Interpretation Comments Glucose, syringe (test code = 158 mg/dL 65-99 H 2345-7) Lab Interpretation (test code = Abnormal 42874-4) Song MethodistHemoglobin, mkdhfng1655-51-30 11:43:11 Test Item Value Reference Range Interpretation Comments Hemoglobin, syringe (test code = 8.4 g/dL 14-18 L 718-7) Lab Interpretation (test code = Abnormal 45867-0) Song MethodistPotassium, ftigvvy4290-49-90 11:43:11 Test Item Value Reference Range Interpretation Comments Potassium, syringe (test code = 5.9 3.5- 5.0 mEq/L H 2007) Lab Interpretation (test code = Abnormal 58172-1) Song MethodistSodium level, wwskfkt8214-88-02 11:43:11 Test Item Value Reference Range Interpretation Comments Sodium, syringe (test code = 2947-0) 134 135- 148 mEq/L L Lab Interpretation (test code = Abnormal 43888-1) Song QfpokvbddNtwqfgmrht5422-49-14 11:26:39 Test Item Value Reference Range Interpretation Comments Fibrinogen (test code = 06953-3) 340 mg/dL 200-450 Song MethodistPlatelet ymqjw6001-34-05 11:18:23 Test Item Value Reference Range Interpretation Comments Platelet count (test code = 58870-5) 149 150- 400 k/uL L Lab Interpretation (test code = Abnormal 67196-9) [place] MethodistHemoglobin & jtpeuwceow8398-50-79 11:18:23 Test Item Value Reference Range Interpretation Comments HGB (test code = 718-7) 7.8 g/dL 14-18 L HCT (test code = 4544-3) 23.3 % 41-51 L Lab Interpretation (test code = Abnormal 54276-1) [place] MethodistSpirometry, diffusion, lung gdzubwg5260-66-12 14:20:37 Test Item Value Reference Range Interpretation Comments FEV1 Pre (test code = 2.87 L 2.94-4.48 5348) FEV1/FVC % Pre (test code 83.6 % 68.25-86.44 = 5361) FVC Pre (test code = 5354) 3.43 L 3.83-5.65 PEF Pre (test code = 5367) 4.17 L/s 6.79-12.1 FEF 25-75% Pre (test code 3.51 L/s 1.69-5.14 = 5547) DLCO Pre (test code = 18.47 20.93- 36.86 ml/(min*mmHg) 5423) DL/VA Pre (test code = 3.68 3.11- 5.51 ml/(min*mmHg*L) 5437) VA SB Pre (test code = 5.02 L 5.46-8.19 5444) DLCOc Pre (test code = 21.34 20.93- 36.86 ml/(min*mmHg) 5430) KCOc SB Pre (test code = 4.25 3.11- 5.51 ml/(min*mmHg*L) 5535) Hb Pre (test code = 5540) 10.6 g(Hb)/dL R0.5IN Pre (test code = 1.74 3.06- 3.06 cmH2O*s/L 5514) FRCpl Pre (test code = 2.42 L 2.61-4.58 5388) RV Pre (test code = 5402) 2.22 L 1.7-3.05 TLC Pre (test code = 5416) 5.63 L 5.97-8.28 RV % TLC Pre (test code = 39.39 % 27.6-45.56 5409) VC Pre (test code = 5374) 3.41 L 3.83-5.65 ERV Pre (test code = 5381) 0.2 L 1.22-1.22 IC Pre (test code = 5395) 3.22 L 3.35-3.35 sR0.5IN Pre (test code = 5.24 cmH2O*s 5521) Raw Pre (test code = 5507) 1.85 3.06- 3.06 cmH2O*s/L sGaw Predicted (test code 0.18 0.08- 0.08 1/(cmH2O*s) = 5528) FEV1 Predicted (test code 3.71 = 5302) FEV1 LLN (test code = 2.94 5347) FEV1 % Pre of Predicted 77.3 % (test code = 5308) FVC Predicted (test code = 4.74 5307) FVC LLN (test code = 5353) 3.83 FVC % Pre of Predicted 72.3 % (test code = 5355) FEV1/FVC % Predicted (test 77 code = 5359) FEV1/FVC % LLN (test code 68 = 5360) FEV1/FVC % Pre of 108.1 % Predicted (test code = 5362) FEF 25-75% Predicted (test 3.42 code = 5546) FEF 25-75% LLN (test code 1.69 = 5545) FEF 25-75% % Pre of 102.9 % Predicted (test code = 5548) PEF Predicted (test code = 9.44 5310) PEF LLN (test code = 5366) 6.79 PEF % Pre of Predicted 44.1 % (test code = 5368) VC Predicted (test code = 4.74 5372) VC LLN (test code = 5373) 3.83 VC % Pre of Predicted 72 % (test code = 5375) ERV Predicted (test code = 1.22 5379) ERV LLN (test code = 5380) 1.22 ERV % Pre of Predicted 16.3 % (test code = 5382) FRCpl % Predicted (test 3.59 code = 5386) FRCpl % LLN (test code = 2.61 5387) FRCpl % Pre of Predicted 67.3 % (test code = 5389) IC Predicted (test code = 3.35 5393) IC LLN (test code = 5394) 3.35 IC % Pre of Predicted 95.9 % (test code = 5396) RV Predicted (test code = 2.38 5400) RV LLN (test code = 5401) 1.7 RV % Pre of Predicted 93.4 % (test code = 5403) RV % TLC Predicted (test 37 code = 5407) RV % TLC LLN (test code = 28 5408) RV % TLC % Pre of 107.7 % Predicted (test code = 5410) TLC Predicted (test code = 7.13 5414) TLC LLN (test code = 5415) 5.97 TLC % Pre of Predicted 79 % (test code = 5417) Raw Predicted (test code = 3.06 5505) Raw LLN (test code = 5506) 3.06 Raw % Pre of Predicted 60.5 % (test code = 5508) R0.5IN Predicted (test 3.06 code = 5512) R0.5IN LLN (test code = 3.06 5513) R0.5IN % Pre of Predicted 56.7 % (test code = 5515) sGaw Predicted (test code 0.08 = 5526) sGaw LLN (test code = 0.08 5527) sGaw % Pre of Predicted 214.7 % (test code = 5529) DLCO Predicted (test code 28.9 = 5421) DLCO LLN (test code = 20.93 5422) DLCO % Pre of Predicted 63.9 % (test code = 5424) DLCOc Predicted (test code 28.9 = 5428) DLCOc LLN (test code = 20.93 5429) DLCOc % Pre of Predicted 73.8 % (test code = 5431) DL/VA Predicted (test code 4.31 = 5435) DL/VA LLN (test code = 3.11 5436) DL/VA % Pre of Predicted 85.4 % (test code = 5438) KCOc SB Predicted (test 4.31 code = 5533) KCOc SB LLN (test code = 3.11 5534) KCOc SB % Pre of Predicted 98.6 % (test code = 5536) VA SB Predicted (test code 6.82 = 5442) VA SB LLN (test code = 5.46 5443) VA SB % Pre of Predicted 73.7 % (test code = 5445) Duncan Steve
--- OUTSIDE RECORDS SUMMARY | 2019-09-03 17:05 | XMS REPORT | Summary of Care ---
:1960 Author Organization [facility] Address [address] [id number] Care Team Providers Name Role Phone Tito Duval MD Primary Care Provider Reason for Visit Reason Comments Follow Up wound check Post-op Follow-up Wound Check Consult, Test & Treat (Routine) Status Reason Specialty Diagnoses / Referred By Referred To Procedures Contact Contact Patient Podiatry / Procedures Star Mirza Jeffrey Responsible Vascular Surgery ESTABLISHED A, DPM A, DPM OFFICE VISIT [address] [place] [id number] Phone: Fax: Encounter Details Date Type Department Care Team Description 08/21/2019 Office Visit [facility] Star Bartholomew, Follow Up (wound Medicine Vascular DPM check ); Post-op Surgery [address] [place] [address] Follow-up; Wound Check 7[address] [facility] [address] 6[address] Floor, [address] [phone] [id number] [phone] Allergies No Known Allergiesdocumented as of this encounter (statuses as of 09/01/2019) Medications Medication Sig Dispensed Refills Start Date [...] 81 OR Take by mouth. 0 Active mupirocin (BACTROBAN) Apply 1-2 grams to 1 Tube 1 0 Active 2 % ointment affected area daily. documented as of this encounter (statuses as of 09/01/2019) Active Problems Problem Noted Date Post-operative state 07/24/2019 S/P transmetatarsal amputation of foot, right (HCCode) 07/24/2019 Type 2 diabetes mellitus with diabetic peripheral you opathy without 07/24/2019 gangrene, with long-term current use of insulin (HCCod e) Encounter for post surgical wound check 07/24/2019 PAD (peripheral artery disease) (HCCode) 07/17/2019 documented as of this encounter (statuses as of 09/01/2019) Social History Tobacco Use Types Packs/Day Years [...] been in contact with No / Unsure 08/21/2019 12:50 PM CDT someone who was confirmed or suspected to have Coronavirus / COVID-19? documented as of this encounter Last Filed Vital Signs Vital Sign Reading Time Taken Comments Blood Pressure 137/77 08/21/2019 1:04 PM CDT Pulse 72 08/21/2019 1:04 PM CDT Temperature - - Respiratory Rate - - Oxygen Saturation - - Inhaled Oxygen Concentration - - Weight 104.3 kg (230 lb) 08/21/2019 1:04 PM CDT Height 172.7 cm (5' 8") 08/21/2019 1:04 PM CDT Body Mass Index 34.97 08/21/2019 1:04 PM CDT documented in this encounter Progress Notes Pattie Kimball, SIERRA - 08/21/2019 1:00 PM CDT Subjective: Dayton Grijalva is a 58 y.o. male that presents today for follow-up evaluation and management of right TMA with advancement placement flap with primary closure (06/19/19 - Hermes). he admits to to being compliant with his local wound care consisting of mupirocin and Betadine wet to dry dressings. He denies any additional complaints today. No results found for: HGBA1C. Wound is stable and sutures are ready for removal. Planar flap with eschar, and surrounding hyperkeratosis No new complaints. he denies any nausea, vomiting, fever, or chills. Past Medical History: Diagnosis Date Chronic kidney disease Hypertension Type 1 diabetes mellitus (HCCode) Past Surgical History: Procedure Laterality Date HX AMPUTATION FOOT AMPUTATION THROUGH METATARSAL 2009 Left TOE AMPUTATION Right 2nd toe 05/2019, 3rd toe 06/2019 CORONARY ARTERY BYPASS GRAFT 09/2018 PERIPHERAL ANGIOS / AORTOGRAM 06/15/2019 Bilateral Procedure: PERIPHERAL ANGIOS / AORTOGRAM; Surgeon:Clark Danielle MD; Location: [facility]; Service: General Surgery; Laterality: Bilateral; AMPUTATION,TOE 06/19/2019 Right Procedure: AMPUTATION,TOE; Surgeon: Star Mirza DPM; Location: [facility]; Service: Podiatry; Laterality: Right; AMPUTATION 4TH DIGIT PARTIAL, 2nd ,3rd ,4th RAY AMPUTATION RIGHT FOOT WITH POSSIBLE TRANSMETATARASAL AMPUTATION WITH SPY MACHINE,PULSE LAVAGE AND VERSA JET OSTECTOMY,FOOT/ TOE 06/19/2019 Right Procedure: OSTECTOMY,FOOT/ TOE; Surgeon: Star Mirza DPM; Location: [facility]; Service: Podiatry; Laterality: Right; AMPUTATION,FOOT 06/19/2019 Right Procedure: AMPUTATION,FOOT; Surgeon: Star Mirza DPM; Location: [facility]; Service: Podiatry; Laterality: Right; PROCEDURE W/SPY ELITE FLUORESCENT VASCULAR ANGIOGRAPHY 06/19/2019 N/A Procedure: PROCEDURE W/ SPY ELITE FLUORESCENT VASCULAR ANGIOGRAPHY; Surgeon: Star Mirza DPM; Location: [facility]; Service: Podiatry; Laterality: N/A; Surgical history includes right diagnostic angiogram (none previously performed with history of toe amputations without angiography), selective catherization of 3rd order vessel x 2 (peroneal and anterior tibial artery), right peroneal arteryballoon angioplasty, right anterior tibialballoon angiopl asty(06/15/19 - Danielle), right SPY, I&D abscess post amputation site, right TMA with advancement placement flap with primary closure (06/19/19 - Hermes). Objective: BP 137/77 (BP Location: right arm, Patient Position: Sitting) | Pulse 72 | Ht 5' 8" (1.727 m) | Wt 230 lb (104.3 kg) | BMI 34.97 kg/m General: Patient is alert, responsive, NAD Lower Ext: Derm: Wound site rightTMA stumppresents with dry, stable eschar. Sutures intact to dorsal flap. Taylor plantar flap with eschar presents with granular bed.There is periwound hyperkeratosis in need of debridement. Hyperpigmentation noted to proximal stump. There is notany evidence of edema, erythema, purulence, malodor, probe to bone, tracking or tunneling noted. The wound site isimproving. Vasc: Pedal pulses are not palpable bilateral lower extremity. CFT < 3 sec bilateral. Biphasic signal noted to DP/PT/peroneal, RLE. Neuro: Protective threshold is not intact bilateral. Mus/Ske: Muscle strength 3/5 RLE. Range of motion decreased to right lower extremity. Left footdigital contractures. Psych: Mood normal, affect normal, concentration normal Assessment and Plan: 1. S/p right diagnostic angiogram (none previously performed with history of toe amputations withoutangiography), selective catherization of 3rd order vessel x 2 (peroneal and anterior tibial artery),right peroneal arteryballoon angioplasty, right anterior tibialballoon angioplasty(06/15/19 - Danielle) 2. S/p right SPY, I&D abscess post amputation site, right TMA with advancement placement flap with primary closure (06/19/19 - Hermes) 3. PAD 4. DM II - insulin 5. DPN, bilateral - gabapentin 1. Has F/u with Dr. Danielle 09/04/2019 2.With the use of a sharp and sterile#15 blade and tissue nippers,the right TMA stumpwound site was sharply debrided down to and including the subcutaneous tissue less than 20cm2. Scant bleeding was noted and controlled via direct pressure. 2/3 of sutures were removed.The wound site was then dressed with mupirocin to edges of the wound,followed by application of Adaptic, Betadine wet todry,sterile 4x4, webrill and nica bandage in a mildly compressive manner.Hewas instructed to change dressing daily as performed in clinic, as before. Do not soak foot. Son at bedside. Verbalized understanding. Communicated with patient and is in agreeable. 3. DM education given and reinforced as previous OV. Patient verbalized understanding. Findings were discussed with the patient and all questions were answered. F/u 2 weeks ZOLTAN Clemente [facility] Division of Vascular Surgery and Podiatry I personally examined , And wound care post op performed, sharp debridement of surrounding tissue of the plantar falp performed, and 2/3 of the sutures were removed, and was present for the evaluationand treatment of patient Dyaton Grijalva I concur with the examination, findings, procedures, and documentation on patient Dayton Grijalva by Pattie Kimball N.P. Star Mirza DPM [employer] [facility] Feliz Finney Department of Surgery Division of Vascular Surgery and Endovascular Therapy documented in this encounter Plan of Treatment Date Type Specialty Care Team Description 09/04/2019 Office Visit Vascular Surgery Clark Danielle MD [address] [place] [address] [place] [address] [phone] 09/04/2019 Office Visit Vascular Surgery Star Mirza DPM [address] [place] [address]703 0 [phone] Name Type Priority Associated Diagnoses Order S chedule NH DEBRIDEMENT OPEN NH Charge Routine S/P transmetatarsal O rdered: WOUND 20 SQ CM< amputation of foot, 08/21 right (HCCode) Post-operative s cardenas Encounter for post surgical wound check NH POST-OP FOLLOW-UP NH Charge Routine S/P transmetatarsal Ordered: VISIT amputation of foot, 08/22/19 20 right (HCCode) Post-operative s cardenas Encounter for post surgical wound check SUTURE REMOVAL KIT [employer] Routine PAD (peripheral deepa ry Ordered: disease) (HCCode ) 09/01/2019 S/P transmetatarsal amputation of foot, right (HCCode) Post-operative s cardenas Encounter for post surgical wound c heck Type 2 diabetes mellitus with diabetic peripheral angiopathy without gangrene, with long-term current use of insulin (HCCode) Status post transmetatarsal amputation of foot, right (HCCode) Non-healing wound of lower extremity, right, subsequent encou nter Controlled type 2 diabetes mellitus with diabetic peripheral angiopathy and gangrene, with long-term current use of insulin ( HCCode) Wound eschar of foot Health Maintenance Due Date Last Done Comments [...] amputation of foot, right (HCCode) - Primary PAD (peripheral artery disease) (HCCode) Unspecified disorders of arteries and ar terioles Post-operative state Other postprocedural status Encounter for post surgical wound check Type 2 diabetes mellitus with diabetic p eripheral angiopathy without gangrene, with long-term current use of insulin (HCCode ) Status post transmetatarsal amputation o f foot, right (HCCode) Non-healing wound of lower extremity, ri ght, subsequent encounter Controlled type 2 diabetes mellitus with diabetic peripheral angiopathy and gangrene, with long-term current use of insulin (H CCode) Wound eschar of foot Unspecified disorder of skin and subcuta neous tissue documented in this encounter Insurance Payer Benefit Plan / Subscriber ID Effective Phone Address T ype Group Dates [place] [employer] xxxxxxxxx*xx 2019-Jennifer MCNEAL HMO - RNPO PCP nt 235676 [place] [address] documented as of this encounter
--- NOTE | 2019-09-03 17:06 | RAD REPORT ---
EXAM DESCRIPTION: RAD - Chest Single View - 09/03/2019 4:53 pm CLINICAL HISTORY: COUGH, hypertension COMPARISON: AP chest June 08 TECHNIQUE: AP portable chest image was obtained 09/03/2019 4:53 pm . FINDINGS: Lung volumes are low. No peripheral mass consolidation. Interstitial pattern is similar to comparison. Sternotomy wires are in place. Mild cardiomegaly with prominent vasculature. No measurab le pleural effusion and no pneumothorax. No acute bony abnormality seen. No acute aortic findings anitha pected. IMPRESSION: Mild cardiomegaly and mild vascular engorgement match comparison. No significant interstitial edema. No focal mass or consolidation.
[2019-09-03 17:13] LABS: Absolute Lymphocytes (CBC) 0.8 K/uL (0.7-4.9); Hematocrit 36.6 % (39.6-49.0); Lymphocytes % 8.5 % (15.3-44.8); RBC Red Blood Cell Count 4.42 M/uL (4.33-5.43)
[2019-09-03] MEDS ORDERED: AMLODIPINE 5 MG TAB ONE (17:44)
[2019-09-03 17:45] LABS: Albumin 3.2 g/dL (3.4-5.0); Bilirubin Direct 0.1 mg/dL (0-0.2); Bilirubin Total 0.3 mg/dL (0.2-1.0); Magnesium 2.3 mg/dL (1.8-2.4); Potassium 3.5 mmol/L (3.5-5.1); Protein, Total 8.1 g/dL (6.4-8.2); Troponin (Emerg Dept Use Only) 0.02 ng/mL (0.0-0.045)
--- NOTE | 2019-09-03 18:56 | EDPHYS ---
Physician Documentation [facility] Name: Dayton Grijalva Age: 58 yrs Sex: Male : 1960 Arrival Date: 09/03/2019 Time: 16:18 Bed 26 Private MD: SHAYNA Physician Dario Clinton HPI: 09/02 17:09 This 58 yrs old Male presents to ER via EMS with complaints of High Blood mary Pressure. 17:09 The patient has elevated blood pressure and discovered this dialysis. Onset: The mary symptoms/episode began/occurred just prior to arrival. Modifying factors: The symptoms are aggravated by activity, The symptoms are alleviated by remaining still. Associated signs and symptoms: The patient has no apparent associated signs or symptoms. Severity of symptoms: At its worst the blood pressure was moderate, just prior to arrival. The patient has experienced similar episodes in the past, a few times. Historical: - Allergies: 16:21 No Known Allergies; ll1 - PMHx: 16:21 Diabetes - IDDM; HD-MWF; Hypertension; ll1 - PSHx: 16:21 left foot sx, right foot surgery; ll1 - Immunization history:: Adult Immunizations up to date. - Social history:: Smoking status: Patient denies any tobacco usage or history of. Patient/guardian denies using alcohol, street drugs, tobacco products. - Family history:: not pertinent. ROS: 17:09 Constitutional: Negative for fever, chills, and weight loss, Eyes: Negative for injury, mary pain, redness, and discharge, ENT: Negative for injury, pain, and discharge, Neck: Negative for injury, pain, and swelling, Cardiovascular: Negative for chest pain, palpitations, and edema, Respiratory: Negative for shortness of breath, cough, wheezing, and pleuritic chest pain, Abdomen/GI: Negative for abdominal pain, nausea, vomiting, diarrhea, and constipation, Back: Negative for injury and pain, : Negative for injury, bleeding, discharge, and swelling, MS/Extremity: Negative for injury and deformity, Skin: Negative for injury, rash, and discoloration, Neuro: Negative for headache, weakness, numbness, tingling, and seizure, Psych: Negative for depression, anxiety, suicide ideation, homicidal ideation, and hallucinations, Allergy/Immunology: Negative for hives, rash, and allergies, Endocrine: Negative for neck swelling, polydipsia, polyuria, polyphagia, and marked weight changes, Hematologic/Lymphatic: Negative for swollen nodes, abnormal bleeding, and unusual bruising. Exam: 17:09 Constitutional: This is a well developed, well nourished patient who is awake, alert, mary and in no acute distress. Head/Face: Normocephalic, atraumatic. Eyes: Pupils equal round and reactive to light, extra-ocular motions intact. Lids and lashes normal. Conjunctiva and sclera are non-icteric and not injected. Cornea within normal limits. Periorbital areas with no swelling, redness, or edema. ENT: Nares patent. No nasal discharge, no septal abnormalities noted. Tympanic membranes are normal and external auditory canals are clear. Oropharynx with no redness, swelling, or masses, exudates, or evidence of obstruction, uvula midline. Mucous membranes moist. Neck: Trachea midline, no thyromegaly or masses palpated, and no cervical lymphadenopathy. Supple, full range of motion without nuchal rigidity, or vertebral point tenderness. No Meningismus. Chest/axilla: Normal chest wall appearance and motion. Nontender with no deformity. No lesions are appreciated. Cardiovascular: Regular rate and rhythm with a normal S1 and S2. No gallops, murmurs, or rubs. Normal PMI, no JVD. No pulse deficits. Respiratory: Lungs have equal breath sounds bilaterally, clear to auscultation and percussion. No rales, rhonchi or wheezes noted. No increased work of breathing, no retractions or nasal flaring. Abdomen/GI: Soft, non-tender, with normal bowel sounds. No distension or tympany. No guarding or rebound. No evidence of tenderness throughout. Back: No spinal tenderness. No costovertebral tenderness. Full range of motion. Male : Normal genitalia with no discharge or lesions. Skin: Warm, dry with normal turgor. Normal color with no rashes, no lesions, and no evidence of cellulitis. MS/ Extremity: Pulses equal, no cyanosis. Neurovascular intact. Full, normal range of motion. Neuro: Awake and alert, GCS 15, oriented to person, place, time, and situation. Cranial nerves II-XII grossly intact. Motor strength 5/5 in all extremities. Sensory grossly intact. Cerebellar exam normal. Normal gait. Psych: Awake, alert, with orientation to person, place and time. Behavior, mood, and affect are within normal limits. Vital Signs: 16:18 BP 220 / 96; Pulse 68; Resp 18; Temp 98.3; Pulse Ox 96% ; Pain 0/10; ll1 17:01 BP 191 / 93; Pulse 63; Resp 17; ll1 17:32 BP 197 / 90; Pulse 60; Resp 17; ll1 18:30 BP 221 / 94; Pulse 58; Resp 18; ll1 19:06 BP 220 / 91; Pulse 61; Resp 18; ll1 19:16 BP 223 / 92; Pulse 60; wh 19:43 BP 195 / 94; Pulse 63; wh 18:30 Dr. Clinton informed of BP ll1 MDM: 16:24 Patient medically screened. [facility] 17:11 Data reviewed: vital signs, nurses notes, lab test result(s), EKG, radiologic studies, mary plain films. 18:52 Differential diagnosis: hypertensive crisis, Malignant HTN. Data interpreted: Cardiac mary monitor: rate is 58 beats/min, Pulse oximetry: on room air is 96 %. Test interpretation: by ED physician or midlevel provider: ECG, plain radiologic studies. Counseling: I had a detailed discussion with the patient and/or guardian regarding: the historical points, exam findings, and any diagnostic results supporting the discharge/admit diagnosis, the presence of at least one elevated blood pressure reading (>120/80) during this emergency department visit, lab results, radiology results, the need for outpatient follow up, for definitive care, a wool cleaner. Medication response: norvasc in ed, clonidine. 18:56 ED course: pt is without complaint, will add hydralizine and norvasc to med regimine, mary cont coreg 12.5 bid, will follow up , return if symptoms worsen. 09/02 16:25 Order name: Basic Metabolic Panel [facility] 09/02 16:25 Order name: CBC with Diff; Complete Time: 17:33 [facility] 09/02 16:25 Order name: LFT's; Complete Time: 18:51 [facility] 09/02 16:25 Order name: Magnesium; Complete Time: 18:51 [facility] 09/02 16:25 Order name: NT PRO-BNP; Complete Time: 18:51 [facility] 09/02 16:25 Order name: Troponin (emerg Dept Use Only); Complete Time: 18:51 [facility] 09/02 16:25 Order name: XRAY Chest (1 view); Complete Time: 17:33 [facility] 09/02 16:25 Order name: EKG; Complete Time: 16:26 [facility] 09/02 16:26 Order name: Basic Metabolic Panel; Complete Time: 18:51 EDMS 09/02 16:25 Order name: Cardiac monitoring; Complete Time: 16:33 [facility] 09/02 16:25 Order name: EKG - Nurse/Tech; Complete Time: 16:33 [facility] 09/02 16:25 Order name: IV Saline Lock; Complete Time: 16:33 [facility] 09/02 16:25 Order name: Labs collected and sent; Complete Time: 16:33 [facility] 09/02 16:25 Order name: O2 Per Protocol; Complete Time: 16:33 [facility] 09/02 16:25 Order name: O2 Sat Monitoring; Complete Time: 16:33 [facility] 09/02 18:51 Order name: Vital Signs; Complete Time: 19:24 mary Administered Medications: 17:32 Not Given (Duplicate Order): hydrALAZINE 10 mg PO once mary 17:32 Not Given (Duplicate Order): hydrALAZINE 10 mg IV at per protocol once mary 17:38 Drug: Norvasc 10 mg Route: PO; ll1 19:23 Follow up: Response: No adverse reaction; Blood pressure is elevated; RASS: Alert and ll1 Calm (0) 19:12 Drug: hydrALAZINE 5 mg {Note: 223/92 60.} Route: IV; Rate: per protocol; Site: right antecubital; 20:15 Follow up: Response: No adverse reaction; Blood pressure is lowered; IV Status: Completed infusion 19:15 Drug: hydrALAZINE 10 mg {Note: 223/ 60.} Route: PO; 20:14 Follow up: Response: No adverse reaction; Blood pressure is lowered Disposition: 09/03/19 18:55 Discharged to Home. Impression: Essential (primary) hypertension, End stage renal disease. - Condition is Stable. - Discharge Instructions: Hypertension, Dialysis, Hypertension, Ekne-ex-Tonn, How to Take Your Blood Pressure, Rldd-md-Ktkt, Dialysis Diet, Dndt-qx-Otwr, Managing Your Hypertension. - Prescriptions for Norvasc 5 mg Oral Tablet - take 1 tablet by ORAL route once daily; 20 tablet. Coreg 12.5 mg Oral tablet - take 1 tablet by ORAL route 2 times per day with food; 20 tablet. Hydralazine 10 mg Oral Tablet - take 1 tablet by ORAL route 2 times per day with food; 30 tablet. - Medication Reconciliation Form, Thank You Letter, Antibiotic Education, Prescription Opioid Use form. - Follow up: Private Physician; When: 2 - 3 days; Reason: Recheck today's complaints, Continuance of care, Re-evaluation by your physician. Follow up: Moon Kelly; When: 2 - 3 days; Reason: Recheck today's complaints, Continuance of care, Re-evaluation by your physician. Follow up: Eliot Aldridge MD; When: 2 - 3 days; Reason: Recheck today's complaints, Re-evaluation by your physician. - Problem is new. - Symptoms have improved. Signatures: Dispatcher [employer] EDDario Jacobs MD MD cha Habalo, Winsy wh Lewis, Lynsay RN RN ll1 Corrections: (The following items were deleted from the chart) 18:55 18:55 09/03/2019 18:55 Discharged to Home. Impression: Essential (primary) mary hypertension; End stage renal disease. Condition is Stable. Discharge Instructions: Hypertension, Dialysis, Hypertension, Yxub-ux-Fpbi, How to Take Your Blood Pressure, Qdvo-wg-Ezzo, Dialysis Diet, Oyny-ap-Kqry, Managing Your Hypertension. Prescriptions for Norvasc 5 mg Oral Tablet - take 1 tablet by ORAL route once daily; 20 tablet. and Forms are Medication Reconciliation Form, Thank You Letter, Antibiotic Education, Prescription Opioid Use. Follow up: Private Physician; When: 2 - 3 days; Reason: Recheck today's complaints, Continuance of care, Re-evaluation by your physician. Follow up: Moon Kelly; When: 2 - 3 days; Reason: Recheck today's complaints, Continuance of care, Re-evaluation by your physician. Problem is new. Symptoms have improved. mary 20:15 18:55 09/03/2019 18:55 Discharged to Home. Impression: Essential (primary) wh hypertension; End stage renal disease. Condition is Stable. Discharge Instructions: Hypertension, Dialysis, Hypertension, Bxvs-cx-Ljqv, How to Take Your Blood Pressure, Otfn-st-Iqki, Dialysis Diet, Vujr-la-Gezk, Managing Your Hypertension. Prescriptions for Norvasc 5 mg Oral Tablet - take 1 tablet by ORAL route once daily; 20 tablet. and Forms are Medication Reconciliation Form, Thank You Letter, Antibiotic Education, Prescription Opioid Use. Follow up: Private Physician; When: 2 - 3 days; Reason: Recheck today's complaints, Continuance of care, Re-evaluation by your physician. Follow up: Moon Kelly; When: 2 - 3 days; Reason: Recheck today's complaints, Continuance of care, Re-evaluation by your physician. Follow up: Eliot Aldridge; When: 2 - 3 days; Reason: Recheck today's complaints, Re-evaluation by your physician. Problem is new. Symptoms have improved. mary
--- NOTE | 2019-09-03 18:56 | ER ---
Nurse's Notes [facility] Name: Dayton Grijalva Age: 58 yrs Sex: Male : 1960 Arrival Date: 09/03/2019 Time: 16:18 Bed 26 Private MD: Diagnosis: Essential (primary) hypertension;End stage renal disease Presentation: 09/02 16:18 Chief complaint: Patient states: BP has been elevated all day today. 240's/120's before ll1 and after he got dialysis. States he has blurred vision in his right eye, no CP or WEEMS. No cough/fever. Coronavirus screen: Proceed with normal triage. Patient denies a cough. Patient denies shortness of breath or difficulty breathing. Patient denies measured and/or subjective temperature greater than 100.4F prior to today's visit. Patient denies travel on a cruise ship or to a country the [facility] currently lists as an affected area. Patient denies contact with known and/or suspected case of COVID-19. Ebola Screen: Patient denies travel to an Ebola-affected area in the 21 days before illness onset. Initial Sepsis Screen: Does the patient meet any 2 criteria? No. Patient's initial sepsis screen is negative. Risk Assessment: Do you want to hurt yourself or someone else? Patient reports no desire to harm self or others. Onset of symptoms was September 03, 2019. 16:18 Method Of Arrival: EMS: [facility] 1 16:18 Acuity: [facility] 2 ll1 17:07 Chief complaint: EMS states: BP elevated, 220's/100's. No meds given en route. ll1 Clonidine .2mg PO at 1502, clonidine .1mg PO at 1531. 17:10 Initial Sepsis Screen: Does the patient have a suspected source of infection? No. ll1 Patient's initial sepsis screen is negative. Triage Assessment: 17:10 General: Appears in no apparent distress. Behavior is calm, cooperative. Pain: Denies ll1 pain. Historical: - Allergies: 16:21 No Known Allergies; ll1 - PMHx: 16:21 Diabetes - IDDM; HD-MWF; Hypertension; ll1 - PSHx: 16:21 left foot sx, right foot surgery; ll1 - Immunization history:: Adult Immunizations up to date. - Social history:: Smoking status: Patient denies any tobacco usage or history of. Patient/guardian denies using alcohol, street drugs, tobacco products. - Family history:: not pertinent. Screenin:09 Abuse screen: Denies threats or abuse. Nutritional screening: No deficits noted. ll1 Tuberculosis screening: No symptoms or risk factors identified. Fall Risk None identified. Fall in past 12 months (25 points). IV access (20 points). Total Masters Fall Scale indicates High Risk Score (45 or more points). Fall prevention measures have been instituted. Side Rails Up X 2 Frequent Obs/Assessments Occuring As available patient and family educated on Fall Prevention Program and Strategies. Assessment: 16:20 General: Appears in no apparent distress. Behavior is calm, cooperative, appropriate ll1 for age. Pain: Denies pain. 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 Full function Gait is steady, Speech is normal, Facial symmetry appears normal, Pupils are PERRLA, Reports blurred vision right eye only. Cardiovascular: Denies chest pain, shortness of breath, Heart tones S1 S2 Capillary refill < 3 seconds Clubbing of nail beds is absent JVD is absent Patient's skin is warm and dry. Respiratory: No deficits noted. Denies cough, shortness of breath. GI: Abdomen is flat, Bowel sounds present X 4 quads. Abd is soft and non tender X 4 quads. Patient currently denies diarrhea, nausea, vomiting. 17:20 Reassessment: Patient appears in no apparent distress at this time. No changes from ll1 previously documented assessment. Patient and/or family updated on plan of care and expected duration. Pain level reassessed. Patient is alert, oriented x 3, equal unlabored respirations, skin warm/dry/pink. 18:20 Reassessment: Patient appears in no apparent distress at this time. No changes from ll1 previously documented assessment. Patient and/or family updated on plan of care and expected duration. Pain level reassessed. Patient is alert, oriented x 3, equal unlabored respirations, skin warm/dry/pink. Vital Signs: 16:18 BP 220 / 96; Pulse 68; Resp 18; Temp 98.3; Pulse Ox 96% ; Pain 0/10; ll1 17:01 BP 191 / 93; Pulse 63; Resp 17; ll1 17:32 BP 197 / 90; Pulse 60; Resp 17; ll1 18:30 BP 221 / 94; Pulse 58; Resp 18; ll1 19:06 BP 220 / 91; Pulse 61; Resp 18; ll1 19:16 BP 223 / 92; Pulse 60; wh 19:43 BP 195 / 94; Pulse 63; wh 18:30 Dr. Clinton informed of BP ll1 ED Course: 16:18 Patient arrived in ED. ll1 16:20 Triage completed. ll1 16:21 Arm band placed on Patient placed in an exam room, on a stretcher. EKG completed in [facility] triage. Results shown to MD. EKG completed in triage. Results shown to MD. 16:24 Dario Clinton MD is Attending Physician. mary 16:26 Tabitha Meadows RN is Primary Nurse. 1 16:54 XRAY Chest (1 view) In Process Unspecified. EDMS 16:55 Inserted saline lock: 20 gauge in right antecubital area, using aseptic technique. 1 Blood collected. 17:10 Patient has correct armband on for positive identification. Bed in low position. Call [facility] light in reach. Side rails up X 1. court monitor on. Pulse ox on. NIBP on. 18:54 Moon Kelly MD is Referral Physician. mary 18:55 Eliot Aldridge MD is Referral Physician. [facility] 19:06 Report given to SUNITA Fuentes. ll1 20:14 No provider procedures requiring assistance completed. IV discontinued, intact, wh bleeding controlled, No redness/swelling at site. Administered Medications: 17:32 Not Given (Duplicate Order): hydrALAZINE 10 mg PO once mary 17:32 Not Given (Duplicate Order): hydrALAZINE 10 mg IV at per protocol once mary 17:38 Drug: Norvasc 10 mg Route: PO; ll1 19:23 Follow up: Response: No adverse reaction; Blood pressure is elevated; RASS: Alert and ll1 Calm (0) 19:12 Drug: hydrALAZINE 5 mg {Note: 223/92 60.} Route: IV; Rate: per protocol; Site: right wh antecubital; 20:15 Follow up: Response: No adverse reaction; Blood pressure is lowered; IV Status: wh Completed infusion 19:15 Drug: hydrALAZINE 10 mg {Note: 223/92 60.} Route: PO; 20:14 Follow up: Response: No adverse reaction; Blood pressure is lowered Outcome: 18:55 Discharge ordered by . mary 20:14 Discharged to home via wheelchair, with family. 20:14 Condition: stable 20:14 Discharge instructions given to patient, family, Instructed on discharge instructions, follow up and referral plans. medication usage, POC Demonstrated understanding of instructions, follow-up care, medications, POC Prescriptions given X 3. 20:15 Patient left the ED. Signatures: Dispatcher [employer] EDMS Dario Clinton MD MD cha [place], Winsy Tabitha Meadows RN RN ll1 Corrections: (The following items were deleted from the chart) 19:06 18:30 BP 221 / 94; Pulse 58bpm; Resp 18bpm; ll1 ll1
[2019-09-03] MEDS ORDERED: HYDRALAZINE HCL 10 MG TABLET ONE (19:17)
[2019-09-03] MEDS ORDERED: HYDRALAZINE HCL 20 MG/ML VIAL ONE (19:17)
[2019-09-03 20:21] VITALS: TEMP 98.3; O2SAT 96
[2019-09-03 20:28] VITALS: BP 195/94
--- NOTE | 2019-09-05 07:21 | EKG ---
Test Date: 2019-09-03 Test Time: 16:31:50 Machine Molder Squeeze: BRAULIO MEASUREMENT RESULTS: Intervals: Rate: 61 MO: 126 QRSD: 90 QT: 478 QTc: 481 [place]: P: 52 MO: 126 QRS: -14 T: 88 INTERPRETIVE STATEMENTS: Normal sinus rhythm Inferior infarct, age undetermined Possible Anterior infarct, age undetermined Abnormal ECG Compared to ECG 06/09/2019 13:18:42 No significant changes Electronically Signed On 09-05-19 07:16:13 CDT by Eliot Aldridge
== END 2019-09-03 20:15 | disposition home or self-care (01) ==
LOC: ER 16:13
DX: I12.0 Hypertensive chronic kidney disease with stage 5 chronic kidney disease or end stage renal disease (principal); E11.22 Type 2 diabetes mellitus with diabetic chronic kidney disease; N18.6 End stage renal disease; Z99.2 Dependence on renal dialysis
CPT/HCPCS: 96365; 93005; 85025; 80048; 36415; 83735; 80076; 84484; 83880; 71045; 99285; J0360

== ENCOUNTER 2019-09-03 22:05 | Emergency (ER) | payer OTHER ==
--- OUTSIDE RECORDS SUMMARY | 2019-09-03 22:10 | XMS REPORT | Clinical Summary ---
:1960 Author Organization [facility] Address [address] [place] [address] Care Team Providers Name Role Phone Tito [...] Type 2 diabetes mellitus 09/22/2018 CAD in [place] artery 08/31/2018 Overview: Added automatically from request for jasmeet castaneda [id number] Encounters Date Type Specialty Care Team Description [...] Trinidad End stage ari Donovan MD disease ([facility]) (Primary Dx) 05/10/2019 Lab Lab Sonal Trinidad ESRD (end anahi Donovan MD renal disease) ([facility]) 05/10/2019 Office Visit Transplant Sonal Trinidad Pre-transplant MD Venus evaluation for Adrogue, kidney transpla nt Jatinder Odonnell MD (Primary Dx) 04/30/2019 Telephone Transplant Alena Patel Kidney f/u a ppts (16:17pm Sp w/p t deuce Raines re: kidney follow u p scheduled on 05/10/19. Olu confirmed patie nts appts.) 04/04/2019 Orders Only Transplant Jatinder ESRD (end stage SUNITA eVgas renal disease) ([facility]) (Primary Dx) 01/24/2019 Telephone Transplant [...] 10/24/2018 Hospital Encounter Radiology Juanis, Post-oper ative 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 Pt getting CABG on 09/22/18) 09/08/2018 Hospital Encounter Pulmonology Juanis Coronary artery Abraham disease involvi radha Whipple MD [place] heart w ith unstable angina pectoris, unspecified [...] Comments Blood Pressure 166/80 05/10/2019 8:04 AM APPRENTICE PAINTER NECKTIES Pulse 93 05/10/2019 8:04 AM APPRENTICE PAINTER NECKTIES Temperature 35.7 C (96.2 F) 05/10/2019 8:02 AM APPRENTICE PAINTER [employer] Respiratory Rate 18 05/10/2019 8:02 AM APPRENTICE PAINTER [employer]ECKTIES Oxygen Saturation 99% 05/10/2019 8:02 AM APPRENTICE PAINTER [employer]KT[employer] Inhaled Oxygen Concentration - - Weight 103 kg (227 lb 11.2 oz) 05/10/2019 8:02 AM APPRENTICE PAINTER [employer]ECKTIES Height 180.3 cm (5' 11") 05/10/2019 8:02 AM APPRENTICE PAINTER [employer]ECKTIES Body Mass Index 31.76 05/10/2019 8:02 AM APPRENTICE PAINTER NECKTIES Plan of Treatment Health Maintenance Due Date Last Done Comments DIABETIC RETINAL EYE EXAM 1960 DIABETIC FOOT EXAM 11/11/1969 URINE MICROALBUMIN 11/11/1969 COLONOSCOPY SCREENING 11/11/2009 SHINGLES VACCINES (#1) 11/11/2009 INFLUENZA VACCINE 10/06/2019 Implants Implanted Type Area Steerer Device Shelf Model / Identifier Expiration Serial / Date Lot Lead Pace Mycrdl Bipolar Coax Tmpry Streamline - [id number] Card iac Pacing N/A: [employer] [place] - 05/16/2020 [id number] / Implanted: Qty: 1 on 09/22/2018 by Abraham Mustafa MD at [facility] Leads or N/A CARDIAC RYHTYM / Electrodes or MGMT Accessories Clip Ligtng Weck Hemoclip Plus W/ Tape Ti Med - [id number] Medic al Clips N/A: TELEFLEX 05/30/2023 [id number] / Implanted: Qty: 2 on 09/22/2018 by Abraham Mustafa MD at [facility] for Internal N/A MEDICAL / Use Clip Ligtng Weck Hemoclip Plus W/ Tape Ti Sm Strngpnt - [id number] Medical Clips N/A: WECK CLOSURE 05/16/2023 [id number] / Implanted: Qty: 2 on 09/22/2018 by Abraham Mustafa MD at [facility] for Internal N/A SYSTEMS / Use Clip Ligtng Weck Hemoclip Plus W/ Tape Ti Sm Strngpnt - [id number] Medical Clips N/A: WECK CLOSURE 06/17/2022 [id number] / Implanted: Qty: 1 on 09/22/2018 by Abraham Mustafa MD at [facility] for Internal N/A SYSTEMS / Use Clip Ligtng Weck Hemoclip Plus W/ Tape Ti Sm Strngpnt - [id number] Medical Clips N/A: WECK CLOSURE 06/17/2022 [id number] / Implanted: Qty: 1 on 09/22/2018 by Abraham Mustafa MD at [facility] for Internal N/A SYSTEMS / Use Material Bone Hmsts Wtrsolbl 2.5g Ostene - [id number] Orthopedic N/A: 01/04/2023 [id number] / Implanted: Qty: 1 on 09/22/2018 by Abraham Mustafa MD at [facility] Trauma N/A / Implants [id number] W [place] Perph Vasclr Ptfe 1.2x10cm 1.65mm - [id number] Vascular Gra ft N/A: BARD PERIPHERAL 06/02/2023 [id number] / Implanted: Qty: 1 on 09/22/2018 by Abraham Mustafa MD at [facility] N/A VASCULAR / [id number] Procedures Procedure Name Priority Date/Time Associated Comments Diagnosis ESTIMATED GFR Routine 05/10/2019 8:10 Results fo r this AM [employer] procedure are i n the results section. PARTIAL THROMBOPLASTIN Routine 05/10/2019 8:10 ESRD (end stag e Results for this TIME (PTT) AM [employer]ENTICE [employer] renal disease) procedure are in (HCC) the results section. PROTHROMBIN TIME WITH Routine 05/10/2019 8:10 ESRD (end stage Results for this INR AM [employer]ENT[employer] renal disease) procedure are in ([facility]) the results section. HC COMPLETE BLD COUNT Routine 05/10/2019 8:10 ESRD (end stage Results for this W/AUTO DIFF AM [employer] renal disease) procedure are in ([facility]) the results section. URINALYSIS SCREEN AND Routine 05/10/2019 8:10 ESRD (end stage Results for this MICROSCOPY, WITH REFLEX AM [employer]ENT[employer] renal disease) pr ocedure are in TO CULTURE ([facility]) the results section. COMPREHENSIVE METABOLIC Routine 05/10/2019 8:10 ESRD (end sta ge Results for this PANEL AM APPRENTICE PA[employer]KTIES renal disease) procedure are in ([facility]) the results section. URINE CULTURE Routine 05/10/2019 8:10 Results fo r this AM AP[employer]ENT[employer] procedure are i n the results section. OCCULT BLOOD, STOOL Routine 05/09/2019 3:35 End stage renal R esults for this PM [employer] disease (HCC) procedure are in the results section. OCCULT BLOOD, STOOL Routine 05/08/2019 10:00 ESRD (end stage R esults for this AM AP[employer]ENT[employer] renal disease) procedure are in ([facility]) the results section. AEROBIC CULTURE [...] DOPPLER PM CDT procedur e are in ([id number]) the results section. ESTIMATED GFR Routine 09/25/2018 [...] AM CDT disease involving procedure are in [place] coronary the results artery of [place] section. heart with angina pectoris (HCC) POC [...] solutions labeled Procedure details: PA Catheter Type: MACHINIST APPRENTICE and o ximetric PA Catheter Size: 9 [...] 09/22/2018 8:09 AM CDT Procedure Note - Sukumra Byrne MD - 09/22/2018 8:09 AM CDT Central line Performed by: Jessica Byrne MD Authorized by: Gabriel Byrne MD Patient Location: OR Staff: Anesthesiologist: León Byrne MD Resident/SHEEP FARMER/AA: Urvashi Brandon CRNA Other Staff: Nahed Arita [...] Ultrasound guidance used: Yes Ultrasound image saved: Jewel perkins Number of attempts: 2 Successful placement: [...] Location: OR Staff: Anesthesiologist: León Byrne MD Resident/SHEEP FARMER/AA: Urvashi Brandon CRNA Other Staff: Nahed Arita [...] the procedure well with no immediate complications CT AN ELECTIVE ENDOTRACHEAL AIRWAY Routine 09/22/2018 7:50 AM CDT Procedure Note - Urvashi Franz CRNA - 09/22/2018 7:50 AM CDT Airway Performed by: Cate Franz CRNA Authorized by: Gabriel Byrne MD Location: OR Urgency: Elective Difficult Airway: No Anesthesiologist: León Byrne MD Resident/SHEEP FARMER/AA: Urvashi Franz CRNA Performed by: resident/SHEEP FARMER/AA Preoxygenated with 100% O2: Yes C-spine Precautions Maintain ed Throughout: Yes Mask Ventilation: Assisted mask (2-hand mask) Final Airway Type: Endotrac heal airway Final Endotracheal Airway: ETT Cuffed: Yes Technique Used: Direct ryan ngoscopy Devices/Methods Used in Plac ement: Intubating stylet Insertion Site: Oral Blade Type: Calrk Laryngoscope Blade/Videolary ngoscope Blade Size: 2 ETT [...] disease involving procedu re are in VOLUMES [place] heart with the result s unstable angina section. pectoris, unspecified vessel or lesion type (HCC) after 09/02/2018 Results Urinalysis screen and microscopy, with reflex to culture (05/10/2019 8:10 AM APPRENTICE PAINTER [employer]KTIES) Specimen site Clean catch [facility] Color, UA Yellow [facility] Appearance, UA Clear [facility] Specific gravity, UA 1.014 1.001 - 1.035 [facility] pH, UA 6.0 5.0 - 8.5 [facility] Protein, UA 3+ (A) Negative [facility] Glucose, UA 3+ (A) Negative [facility] Ketones, UA Negative Negative [facility] Bilirubin, UA Negative Negative [facility] Blood, UA Negative Negative [facility] Nitrite, UA Negative Negative [facility] Urobilinogen, UA <2.0 <2.0 [facility] Leukocyte esterase, Negative Negative [facility] Round epithelial <1 0 - 1 /HPF [facility] cells, HOSPITAL WBC, UA 4 (H) 0 - 1 /HPF [facility] RBC, UA <1 0 - 5 /HPF [facility] Bacteria, UA Few None seen [facility] Yeast, UA None seen [facility] Yeast with None seen [facility] pseudohyphae, [facility] Specimen Urine Performing Organization Address City/[facility] Cent[facility]ode Phone Number [facility] DEPARTMENT OF PATHOLOGY AND [address] [place], [place] [address] [address] [address] Estimated GFR (05/10/2019 8:10 AM APPRENTICE PAINTER NECKTIES)Only the most recent of7 resultswithin the time period is included. Estimated GFR 6 (A) mL/min/1.73 [facility] Comment: HOSPITAL Catergory Units Interpretation G1 >=90 [...] specimen Performing Organization Address City/State/Zipcode Phone Number [facility] DEPARTMENT OF PATHOLOGY AND [address] [place] [address] [phone] [address] Partial thromboplastin time, activated (05/10/2019 8:10 AM APPRENTICE PAINTER NECKTIES)Only the most recent of3 resultswithin the time period is included. PTT 32.8 23.0 - 36.0 [facility] Comment: [facility] HOSPITAL PTT therapeutic range for unfractionated heparin is 61.0-112.0 seconds which corresponds to Anti-Xa 0.3-0.7 U/ml. Specimen Blood Performing Organization Address City/[facility]/Zipcode Phone Number [facility] DEPARTMENT OF PATHOLOGY AND [address] [place] [address] [id number] [place] [address] Prothrombin time with INR (05/10/2019 8:10 AM APPRENTICE PAINTER NECKTIES)Only the most recent of4 resultswithin the time period is included. Pathologist [facility] Prothrombin time 14.2 11.5 - 14.5 [facility] INR 1.1 [place] Comment: [facility] International Normalized Ratio (INR) is a [facility] monitoring tool for patients who are stable on oral anticoagulant therapy. An INR of 2.0-3.0 is suggested for deep vein thrombosis/pulmonary embolism. Specimen Blood Performing Organization Address City/[facility] Centercode Phone Number [facility] DEPARTMENT OF PATHOLOGY AND [address] [place] [address] [phone] [place] [address] CBC with platelet and differential (05/10/2019 8:10 AM APPRENTICE PAINTER NECKTIES)Only the most recent of5 resultswithin the time period is included. Pathologist [facility] WBC 10.29 4.50 - 11.00 [facility] k/uL [facility] RBC 4.73 4.40 - 6.00 [facility] HGB 15.0 14.0 - 18.0 [facility]/dL [facility] HCT 44.8 41.0 - 51.0 % [facility] MCV 94.7 82.0 - 100.0 [facility] MCH 31.7 27.0 - 34.0 pg [facility] MCHC 33.5 31.0 - 37.0 [facility] gdL [facility] RDW - SD 48.3 37.0 - 55.0 fL [facility] MPV 10.5 8.8 - 13.2 fL [facility] Platelet count 249 150 - 400 k/uL [facility] Nucleated RBC 0.00 /100 WBC [facility] Neutrophils 69.8 (H) 39.0 - 69.0 % [facility] Lymphocytes 13.3 (L) 25.0 - 45.0 % [facility] Monocytes 8.9 0.0 - 10.0 % [facility] Eosinophils 6.4 (H) 0.0 - 5.0 % [facility] Basophils 1.1 (H) 0.0 - 1.0 % [facility] Immature granulocytes 0.5Comment: 0.0 - 1.0 % [facility] "Immature HOSPITAL granulocytes" (promyelocytes , myelocytes, metamyelocytes ) Specimen Blood Performing Organization Address City/State/Zipcode Phone Number [facility] DEPARTMENT OF PATHOLOGY AND [address] [place] [address] [phone] [address] Urine culture (05/10/2019 8:10 AM APPRENTICE PAINTER [employer]ECKTIES) Pathologist Sig nature Urine culture SEE COMMENTComment: [facility] Bacteriuria screen HOSPITAL negative. Specimen Performing Organization Address City/[facility]/Zipcode Phone Number [facility] DEPARTMENT OF PATHOLOGY AND [address] [place] [address] [phone] [address] Comprehensive metabolic panel (05/10/2019 8:10 AM APPRENTICE PAINTER [employer]ECKTIES) Sodium 137 135 - 148 [facility] mEq/L [facility] Potassium 4.0 3.5 - 5.0 [facility] mEq/L [facility] Chloride 92 (L) 98 - 112 mEq/L [facility] CO2 24 24 - 31 mEq/L [facility] Anion gap 21@ANIO (H) 7 - 15 mEq/L [facility] BUN 56 (H) 6 - 20 mg/dL [facility] Creatinine 9.10 (H) 0.70 - 1.20 [facility] mg/dL HOSPITAL Glucose 204 (H) 65 - 99 mg/dL [facility] Calcium 9.2 8.3 - 10.2 [facility] mg/dL HOSPITAL Protein 8.9 (H) 6.3 - 8.3 g/dL [facility] Comment: HOSPITAL Hatnvgo9104.6-7.0 g/dL 1 zuyg5597.4-7.6 g/dL 7 months-6cnac610.1-7.3 g/dL 1-2 yqdtl060.6-7.5 g/dL >3 hjzon850.0-8.0 g/dL 18-1107293.3-8.3 g/dL Albumin 3.8 3.5 - 5.0 g/dL [facility] A/G ratio 0.7 0.7 - 3.8 [facility] Alkaline phosphatase 130 (H) 40 - 129 U/L [facility] AST 16 10 - 50 U/L [facility] ALT 15 5 - 50 U/L [facility] Total bilirubin 0.4 0.0 - 1.2 [facility] mg/dL HOSPITAL Specimen Plasma specimen Performing Organization Address City/[facility]/Zipcode Phone Number [facility] DEPARTMENT OF PATHOLOGY AND [address] [place] [address] Occult blood, stool (05/09/2019 3:35 PM APPRENTICE PAINTER NECKTIES)Only the most recent of2 results within the time period is included. Occult blood, Negative for occult blood. [place] [facility] stool Comment: HOSPITAL Specimen Information Specimen Source: Stool Specimen Site: Nonpreserved Specimen Stool - Nonpreserved Performing Organization Address City/[facility] Centercode Phone Number [facility] DEPARTMENT OF PATHOLOGY AND [address] [place] [address] Aerobic culture (10/24/2018 5:00 PM CDT)Only the most recent of2 resultswithin the time period is included. Aerobic culture Serratia marcescens [facility] isolate Occ[facility]ITAL identification/susceptibility to follow This organism is NOT a carbapenemase producing organis m. (A) Comment: Specimen Information Specimen Source: Wound Specimen Site: leg Aerobic culture Klebsiella oxytoca [facility] isolate [facility] identification/susceptibility to follow This [...] CUCA <=0.5 mcg/mL: Susceptible Performing Organization Address City/[facility] Centercode Phone Number [facility] DEPARTMENT OF PATHOLOGY AND [address] [place] [address] Gram stain (10/24/2018 5:00 PM CDT)Only the most recent of2 resultswithin the time period is included. Gram stain isolate No WBC's or organisms seen. JOSE ENRIQUE ROBERSON Comment: HOSPITAL Specimen Information Specimen Source: Wound Specimen Site: leg Specimen Wound - Leg Performing Organization Address [facility] Centercola Phone Number [facility] DEPARTMENT OF PATHOLOGY AND [address] [place] [address] Anaerobic culture (10/24/2018 5:00 PM CDT)Only the most recent of2 results within the time period is included. Anaerobic culture No anaerobic organisms isolated. JARRETT ROBERSON isolate Comment: HOSPITAL Specimen Information Specimen Source: Wound Specimen Site: Leg Specimen Wound - Leg Performing Organization Address [facility]/Zipcode Phone Number [facility] DEPARTMENT OF PATHOLOGY AND [address] [place] [address] XR Chest 2 Vw (10/24/2018 12:38 PM [...] pneumothorax. Visualized osseous structures are intact . [id number] Procedure Note Hm Interface, Radiology Results Incoming [...] pneumothorax. Visualized osseous structures are intact . [id number] Performing Organization Address City/[facility] Centercode Phone Number [address] [address] POC glucose (09/27/2018 1:10 PM CDT)Only the most recent of27 resultswithin the time period is included. Pathologist [facility] POC glucose 121 (H) 65 - 99 mg/dL [facility] Comment: HOSPITAL [facility] Notified RN Meter ID: [id number] Presiding Steward: Jane Somers Specimen Performing Organization Address [facility] Centercode Phone Number [facility] DEPARTMENT OF PATHOLOGY AND [address] [place] [phone] GENOMIC MEDICINE [address] [address] Basic metabolic panel (09/27/2018 4:00 AM CDT)Only the most recent of6 results within the time period is included. [facility] Sodium 135 135 - 148 mEq/L [facility] Potassium 4.5 3.5 - 5.0 mEq/L [facility] Chloride 94 (L) 98 - 112 mEq/L [facility] CO2 23 (L) 24 - 31 mEq/L [facility] Anion gap 18@ANIO (H) 7 - 15 mEq/L [facility] BUN 67 (H) 6 - 20 mg/dL [facility] Creatinine 8.41 (H) 0.70 - 1.20 mg/dL [facility] Glucose 146 (H) 65 - 99 mg/dL [facility] Calcium 7.9 (L) 8.3 - 10.2 mg/dL [facility] Specimen Plasma specimen Performing Organization Address City/[facility] Centercode Phone Number [facility] DEPARTMENT OF PATHOLOGY AND [address] [place] [address] [phone] [address] Prepare RBC, 1 Units (09/26/2018 8:00 AM CDT)Only the most recent of2 results within the time period is included. Product name Red Cells AS1 [facility] Leukored [facility] Unit number [id number] [facility] Product code [id number] [facility] Dispense status Transfused [facility] Blood expiration [id number] [facility] Blood type code 5100 [facility] Blood type O POSITIVE [facility] Specimen Blood Performing Organization Address [facility] Phone Number [facility] DEPARTMENT OF PATHOLOGY AND [address] [place] [address] [address] Type and screen (09/26/2018 8:00 AM CDT)Only the most recent of2 resultswithin the time period is included. Pathologist Sig nature ABO grouping O [facility] Rh type POS [facility] Antibody screen (gel) NEG [facility] Specimen Blood Performing Organization Address [facility] Centercode Phone Number [facility] DEPARTMENT OF PATHOLOGY AND [address] [place] [address] [phone] [address] Smear review (09/26/2018 5:30 AM CDT)Only the most recent of2 resultswithin the time period is included. Pathologist Sig nature Platelet slide review Charmaine adequate [facility] Anisocytosis Moderate [facility] Polychromasia Moderate [facility] Ovalocytes Moderate [facility] Enlarged platelets Moderate (A) [facility] Specimen Performing Organization Address [facility] Centercode Phone Number [facility] DEPARTMENT OF PATHOLOGY AND [address] [place] [address] [phone] [address] ECG 12 lead (09/25/2018 5:48 PM CDT)Only the most recent of5 resultswithin the time period is included. Pathologist Sig nature Ventricular rate 111 [facility] Atrial rate [address] interval 130 [facility] QRSD interval 104 [facility] QT interval 342 [facility] QTC interval 465 [facility] P axis 1 39 [facility] QRS axis 1 3 [facility] T wave axis 17 [facility] EKG impression Sinus tachycardia-Possible L eft atrial enlargement-Inferior infarct (cited on or before 22-SEP-2018)-Lateral injury pattern-^^ ^^ ACUTE PR ^^ ^^-Abnormal ECG-In automated comparison with ECG of 24-SEP-2018 09:26,-No significant change was [facility] MUSE found- Specimen Narrative Performed At This result has an attachment that is no t available. Performing Organization Address City/State/Zipcode Phone Number [facility] MUSE [address] [place] [address] Echocardiogram complete w contrast and 3D if needed (09/25/2018 5:30 PM CDT) Specimen Narrative Performed At [facility] Echo cardiography Report [id number] [facility] [address], [place] [address] Pat.Name: BARBARA GRIJALVA Pat.ID: [id number] .Date: 09/25/2018 Refer.MD: ABRAHAM MALAVE MD Exam Time: 4:16:00 PM Study Type:R outine Echo Height: 72in BSA: 2.24 m2 Age: 9 1960,57Y Sex: MALE BP: 168/81 HR: 91 bpm Sonogrphr: JESSE Oscar Pat. Stat.:Inpat ient Room: [address] atus:Final Echo Event ID:[id number] Order ID: [id number] Reason for Study:S/P CABG History / Clinical:Diabetes, [...] PA systolic pressure. MEASUREMENTS: 2D Parasternal [place] Ds 3.9 cm LVPWd 1.5 cm [...] 2018 12:03 PM CDT Echocardiography Report [address] [address] Pat.Name: BARBARA GRIJALVA Pat.I D: [id number] .Date: 09/25/2018 Refer .MD: ABRAHAM MALAVE MD Exam Time: 4:16:00 PM Study Type:Routine Echo Height: 72in BSA: 2.24 m2 Age: 9 1960,57Y Sex: MALE BP: 168/81 HR: 91 bpm Sonogrphr: JESSE Oscar Pat. Stat.:Inpatient Room: 2023 Study Status:Final Echo Event ID:[id number] Order ID: [id number] Reason for Study:S/P CABG History / Clinical:Diabetes, [...] PA systolic pressure. MEASUREMENTS: 2D Parasternal [place] Ds 3.9 cm LVPW d 1.5 [...] Performing Organization Address City/State/Zipcode Phone Number [facility] [address] [place] [address] CBC hemogram (09/24/2018 5:15 AM CDT)Only the most recent of2 resultswithin the time period is included. [facility] Sig nature WBC 10.82 4.50 - 11.00 k/uL [facility] RBC 2.39 (L) 4.40 - 6.00 m/uL [facility] HGB 7.3 (L) 14.0 - 18.0 g/dL [facility] HCT 22.0 (L) 41.0 - 51.0 % [facility] MCV 92.1 82.0 - 100.0 fL [facility] MCH 30.5 27.0 - 34.0 pg [facility] MCHC 33.2 31.0 - 37.0 g/dL [facility] RDW - SD 49.8 37.0 - 55.0 fL [facility] MPV 11.3 8.8 - 13.2 fL [facility] Platelet count 137 (L) 150 - 400 k/uL [facility] Nucleated RBC 0.00 /100 WBC [facility] Specimen Blood Performing Organization Address [facility] Phone Number [facility] DEPARTMENT OF PATHOLOGY AND [address] [place] [address] [place] [phone] Magnesium level (09/24/2018 5:15 AM CDT)Only the most recent of4 resultswithin the time period is included. Pathologist [facility] Magnesium 2.3 1.6 - 2.6 mg/dL [facility] L Specimen Plasma specimen Performing Organization Address [facility] Phone Number [facility] DEPARTMENT OF PATHOLOGY AND [address] [place] [address] [phone] [address] Ionized calcium (09/24/2018 5:15 AM CDT)Only the most recent of2 resultswithin the time period is included. Pathologist [facility] pH 7.58 [facility] Ionized calcium 0.93 (L) 1.11 - 1.32 [facility] mmol/L HOSPITAL Specimen Plasma specimen Performing Organization Address [facility] Phone Number [facility] DEPARTMENT OF PATHOLOGY AND [address] [place] [address] [phone] [address] XR Chest 1 Vw Portable (09/23/2018 10:49 [...] decrease d pneumomediastinum/pneumopericardium. 4. Unchanged osseous structures. [facility]-[id number] Procedure Note Hm Interface, Radiology Results Incoming [...] and decreased pneumomediastinum/pneumopericardium. 4. Unchanged osseous structures. [facility]-[id number] Performing Organization Address [facility] Phone Number [facility] [address] [place] [address] Line/Drain Removal (09/23/2018 10:25 AM CDT) Narrative Performed At Baudilio Beck Jr., PA-C 9 10:26 AM Line/Drain Removal Date/Time: 09/23/2018 10:25 AM Performed by: Baudilio Beck Jr., PA-C Authorized by: Baudilio Beck [...] Sig nature Hepatitis B surface Non-reactive Non-reactive [facility] Specimen Blood Performing Organization Address City/[facility]/Zipcode Phone Number [facility] DEPARTMENT OF PATHOLOGY AND [address] [place] [address] [facility] [address] [address] Phosphorus level (09/23/2018 1:35 AM CDT)Only the most recent of2 resultswithin the time period is included. Pathologist Sig nature Phosphorus 3.5 2.4 - 4.5 mg/dL [facility] L Specimen Plasma specimen Performing Organization Address [facility] Phone Number [facility] DEPARTMENT OF PATHOLOGY AND [address] [place] [address] [place] [phone] Potassium level (09/22/2018 6:00 PM CDT) Pathologist Sig nature Potassium 5.1 (H) 3.5 - 5.0 mEq/L [facility] L Specimen Plasma specimen Performing Organization Address [facility] Phone Number [facility] DEPARTMENT OF PATHOLOGY AND [address] [place] [phone] [place] [address] Ionized calcium, arterial (09/22/2018 1:05 PM CDT)Only the most recent of5 resultswithin the time period is included. Pathologist Sig nature Ionized calcium, 1.00 (L) 1.11 - 1.32 [facility] arterial mmol/L HOSPITAL Specimen Blood Performing Organization Address [facility] Phone Number [facility] DEPARTMENT OF PATHOLOGY AND [address] [place] [phone] [place] [phone] Arterial blood gas (09/22/2018 1:05 PM CDT) Pathologist Sig nature pH, arterial 7.39 7.35 - 7.45 [facility] pCO2, arterial 38 35 - 45 mmHg [facility] pO2, arterial 229 (H) 80 - 90 mmHg [facility] Bicarbonate, 22.8 21.0 - 28.[address] [facility] [place] [place] mmol/L HOSPITAL Base excess, -1 -2 - 2 mEq/L [facility] O2 saturation, 99 95 - 100 % [facility] arterial HOSPITAL Specimen Blood Performing Organization Address [facility] Phone Number [facility] DEPARTMENT OF PATHOLOGY AND [address] [place] [address] Activated clotting time (09/22/2018 11:53 AM CDT)Only the most recent of6 resultswithin the time period is included. Activated clotting 101 96 - 152 sec [facility] Comment: HOSPITAL Meter ID: [id number] Presiding Steward: Pamela Landin Specimen Performing Organization Address [facility] Phone Number [facility] DEPARTMENT OF PATHOLOGY AND [address] [place] [address] [place] [address] Sodium level, syringe (09/22/2018 11:35 AM CDT)Only the most recent of5 results within the time period is included. Pathologist Sig nature Sodium, syringe 134 (L) 135 - 148 mEq/L [facility] Specimen Blood Performing Organization Address [facility] Phone Number [facility] DEPARTMENT OF PATHOLOGY AND [address] [place] [address] [phone] [address] Potassium, syringe (09/22/2018 11:35 AM CDT)Only the most recent of5 results within the time period is included. Pathologist Sig nature Potassium, syringe 5.9 (H) 3.5 - 5.0 mEq/L [facility] Specimen Blood Performing Organization Address [facility] Phone Number [facility] DEPARTMENT OF PATHOLOGY AND [address] [place] [address] [phone] [address] Hemoglobin, syringe (09/22/2018 11:35 AM CDT)Only the most recent of4 results within the time period is included. Pathologist Sig nature Hemoglobin, syringe 8.4 (L) 14.0 - 18.0 g/dL [facility] Specimen Blood Performing Organization Address [facility] Phone Number [facility] DEPARTMENT OF PATHOLOGY AND [address] [place] [address] [phone] [address] Glucose level, syringe (09/22/2018 11:35 AM CDT)Only the most recent of5 results within the time period is included. Pathologist Sig nature Glucose, syringe 158 (H) 65 - 99 mg/dL [facility] Specimen Blood Performing Organization Address [facility] Phone Number [facility] DEPARTMENT OF PATHOLOGY AND [address] [place] [address] [phone] [address] Arterial blood gas, corrected (09/22/2018 11:35 AM CDT)Only the most recent of4 resultswithin the time period is included. [facility] pH, arterial 7.31 (L) 7.35 - 7.45 [facility] pCO2, arterial 54 (H) 35 - 45 mmHg [facility] pO2, arterial 255 (H) 80 - 90 mmHg [facility] Temperature, Celsius 37.0 Degrees C [facility] O2 saturation, 99 95 - 100 % [facility] arterial HOSPITAL pH, arterial 7.31 [facility] pCO2, arterial 54 mmHg [facility] pO2, arterial 255 mmHg [facility] Base excess, arterial 0 -2 - 2 mEq/L [facility] Specimen Blood Performing Organization Address City/[facility] Phone Number [facility] DEPARTMENT OF PATHOLOGY AND [address] [place] [address] [phone] [address] Hemoglobin & hematocrit (09/22/2018 10:59 AM CDT) [facility] HGB 7.8 (L) 14.0 - 18.0 g/dL [facility] HCT 23.3 (L) 41.0 - 51.0 % [facility] Specimen Performing Organization Address City/[facility] Phone Number [facility] DEPARTMENT OF PATHOLOGY AND [address] [place] [address] [phone] [address] Fibrinogen (09/22/2018 10:59 AM CDT) [facility] Fibrinogen 340 200 - 450 mg/dL [facility] L Specimen Blood Performing Organization Address City/[facility] Phone Number [facility] DEPARTMENT OF PATHOLOGY AND [address] [place] [address] [phone] [address] Platelet count (09/22/2018 10:59 AM CDT) [facility] Platelet count 149 (L) 150 - 400 k/uL [facility] Specimen Performing Organization Address City/[facility] Phone Number [facility] DEPARTMENT OF PATHOLOGY AND [address] [place] [address] [phone] [address] Transfuse RBC (09/22/2018 10:44 AM CDT)Spirometry, diffusion, lung volumes (09/08/2018 2:20 PM CDT) [facility] Sig nature FEV1 Pre 2.87 2.94 [...] Organization Address City/State/Zipcode Phone Number [facility] [address] [facility] [place] [address] after 09/02/2018 Insurance Payer Benefit Plan / Subscriber ID Effective Phone Address T ype Group Dates CIGNA CIGNA xxxxxxxxxxx [facility] ent MCR ADV MEDICARE MEDICARE PART A xxxxxxxxxxx 2019-[place], [place] Medicare AND B ent Advance Directives For more information, please contact: [phone] Type Date Recorded Patient Costumed Character Explanati on Advance Directives, Living Will and Medical Power of Energy Audit Advisor
--- OUTSIDE RECORDS SUMMARY | 2019-09-03 22:13 | XMS REPORT | Clinical Summary ---
:1960 Author Organization [facility] Address [address] [place] [address] Care Team Providers Name Role Phone Tito Duval MD Primary Care Provider [phone] Bill Rosales Unavailable Allergies No Known [...] without long- term current use of insulin ([facility]); Shi Benign essentia l HTN; MD Jeremy ESRD on dialysis ([facility]); Marko Mcdaniel PAD (periphe ral artery disease) ([facility]); Gangrene of rig ht foot ([facility]); Status post amp utation of lesser toe, right ([facility]); Type 2 diabetes mellitus with diabetic peripheral angiopathy and gangrene, with long-term current use of insulin ([facility]); History of blackwell smetatarsal amputation of right foot ([facility]) 06/14/2019 Travel after 09/02/2018 Family History Medical [...] Not on file Implants Implanted Type Area Splitter Hand Device Shelf Model / Identifier Expiration Serial / Date Lot Pwdr Cellerate Rx 5mg Surgical [id number] - [id number] IMPLANT S Right: WOUND CARE 09/03/2021 [id number] / Implanted: Qty: 1 on 06/19/2019 by Star Mirza DPM F [employer] / [id number] Procedures Procedure Name Priority Date/Time Associated Comments Diagnosis RHYTHM STRIP - SCAN 07/04/2019 12:40 PM CDT TRANSFUSION SERVICE 06/29/2019 6:00 REPORT - SCAN PM CDT RHYTHM STRIP - SCAN 06/29/2019 9:01 AM CDT REPORT OF PROCEDURE - 06/29/2019 9:01 ENDOSCOPY SCAN AM CDT CARDIAC CATH REPORT - 06/29/2019 9:01 SCAN AM CDT PREPARE LEUKO-REDUCED [facility] 06/28/2019 11:54 Re sults for this RBC [...] AM CDT BLOOD CELLS TYPE AND SCREEN, [facility] 06/27/2019 8:45 Results for this AUTOMATED AM [...] 446 ms QTC Calculation(Bazett) 471 ms P Cummaquid 29 degrees R Cummaquid -24 degrees T Cummaquid 38 degrees Normal sinus rhythm Possible Anterior [...] ABO O Pos SAFETRACE TX UNIT NUMBER [id number] SAFETRACE TX Status TX_TIMEINCHART SAFETRACE TX Blood Bank Product RED BLOOD CELLS SAFETRACE [place] PRODUCT CODE [id number] SAFETRACE [place] Specimen Other Performing Organization Address City/[facility] Hospital[facility] Phone Number SAFETRACE [place] POC-Glucose meter (06/27/2019 12:06 PM CDT)Only the most recent of59 results within the time period is included. POC-Glucose Meter 159 (H)Comment: : TESTED 70 - 110 mg/dL [facility] AT [address], [address]: Surface Boss/Customer Supply Chain Analyst ID = [id number] for [employer] Specimen Blood Performing Organization Address City/[facility]/Zipcode Phone Number [facility] [address] [place] [address] CENTER HEMODIALYSIS INPATIENT (06/27/2019 11:56 AM [...] is included. ABO/RH AUTOMATED (BEAKER) O POSITIVE [facility] Ab Scrn NEGATIVE [facility] Specimen Blood Performing Organization Address City/State/Zipcode Phone Number [facility] [address] [place] [address] CBC with platelet count + automated diff (06/27/2019 3:39 AM CDT)Only the most recent of14 resultswithin the time period is included. WBC 11.2 (H) 3.5 - 10.5 K/L [facility] RBC 2.51 (L) 4.63 - 6.08 M/L [facility] Hemoglobin 7.0 (L) 13.7 - 17.5 GM/DL [facility] Hematocrit 23.5 (L) 40.1 - 51.0 % [facility] MCV 93.6 (H) 79.0 - 92.[address] [facility] MCH 27.9 25.7 - 32.2 pg [facility] MCHC 29.8 (L) 32.3 - 36.5 GM/DL [facility] RDW 14.2 11.6 - 14.4 % [facility] Platelets 393 150 - 450 K/CU MM [facility] MPV 9.6 9.4 - 12.4 fL [facility] nRBC 0 0 - 0 /100 WBC [facility] % Neutros 70 % [facility] % Lymphs 11 % [facility] % Monos 13 % [facility] % Eos 3 % [facility] % Baso 1 % [facility] # Neutros 7.84 (H) 1.78 - 5.38 K/L [facility] # Lymphs 1.24 (L) 1.32 - 3.57 K/L [facility] # Monos 1.49 (H) 0.30 - 0.82 K/L [facility] # Eos 0.35 0.04 - 0.54 K/L [facility] # Baso 0.12 (H) 0.01 - 0.08 K/L [facility] Immature Granulocytes-Relative 1 0 - 1 % C [facility] Specimen Blood Performing Organization Address City/[facility]/Zipcode Phone Number [address] [address] CENTER Phosphorus (06/27/2019 3:39 AM CDT)Only the most recent of14 resultswithin the time period is included. Phosphorus 6.1 (H) 2.3 - 4.7 mg/dL [facility] Specimen Blood Narrative Performed At Surface Boss SAVANNA Interiano [facility] Performing Organization Address City/[facility]/Zipcode Phone Number [address] [address] CENTER Magnesium (06/27/2019 3:39 AM CDT)Only the most recent of14 resultswithin the time period is included. Magnesium 2.5 1.6 - 2.6 mg/dL [facility] Specimen Blood Narrative Performed At Surface Boss SAVANNA Interiano [facility] Performing Organization Address City/[facility] Hospitalcode Phone Number [address] [address] CENTER Basic metabolic panel (06/27/2019 3:39 AM CDT)Only the most recent of14 results within the time period is included. Sodium 132 (L) 136 - 145 meq/L [facility] Potassium 4.4 3.5 - 5.1 meq/L [facility] Chloride 94 (L) 98 - 107 meq/L [facility] CO2 28 22 - 29 meq/L [facility] BUN 48 (H) 7 - 21 mg/dL [facility] Creatinine 9.99 (H) 0.57 - 1.25 mg/dL [facility] Glucose 168 (H) 70 - 105 mg/dL [facility] Calcium 7.7 (L) 8.4 - 10.2 mg/dL [facility] EGFR 5Comment: ESTIMATED GFR IS mL/min/1.73 sq m [facility] NOT ACCURATE CREATININE [facility] CLEARANCE IN PREDICTING GLOMERULAR FILTRATION RATE. ESTIMATED GFR IS NOT APPLICABLE FOR DIALYSIS PATIENTS. Specimen Blood Narrative Performed At Surface Boss ID - JAQUELINE M [facility] Performing Organization Address City/State/Zipcode Phone Number [facility] [address] [place] [address] CENTER HEMODIALYSIS INPATIENT (06/25/2019 8:18 [...] period is included. Vancomycin Rm 15.8 ug/mL [facility] Specimen Blood Narrative Performed At Reference Range: No Normals [facility] Surface Boss ID - LM Performing Organization Address City/State/Zipcode Phone Number [facility] [address] [place] [address] CENTER HEMODIALYSIS INPATIENT (06/22/2019 12:02 [...] CDT) Specimen Narrative Performed At FINAL REPORT [facility] CLINICAL HISTORY: Postop transmetatarsal amputation COMPARISON: 06/14/2019 [...] CDT) Case Report Surgical Pathology Report Case: [id number] [facility] Authorizing Provider:Star Holt [facility]lected: 06/19/2019 11:18 AM [facility] Ordering Location: [facility] PERIOPERATIVE Received:06/19/2019 11:51 AM SERVICES Pathologist: Jonathan Hutchison MD Specimen:Foot, Right , right forefoot DIAGNOSIS PART A RIGHT FOOT, TRANSMETATARSAL AMPUTATION: [facility] GANGRENOUS NECROSIS OF SKIN AND SOFT TISSUE. [facility] UNDERLYING ACUTE AND CHRONIC OSTEOMYELITIS. STATUS POST PRIOR AMPUTATION. BONE AND SOFT TISSUE MARGINS ARE INVOLVED. Signing Pathologist Direct Phone Line: CPT Code(s) 48228, [address] [facility] Preop diagnosis: Gangrene, [facility] nonhealing wound of right [facility] heel SPECIMEN SOURCE A. Right foot [facility] LICENSE OF [facility] GROSS DESCRIPTION Received in formalin labeled with the patient's name, accession number and "right foot" is a 9.5 x 9.0 x 3.0 cm transmetatarsal amputation displaying digits 1, 4 and 5. The skin is gardner-pink and displays [facility] a 5.0 x 4.5 cm green-black ulcerated lesion at the previous site of amputation that is involving the entire 4th digit, and is abutting the skin and soft tissue margin (inked blue). The underlying affec [facility] doris bone is red-pink, trabec ulated and firm. All three digits display gardner- yellow thickened nails. Solid Plasterer sections are submitted as follows: Section code: A1, skin and soft tissue margin en face A2, previous site of amputation A3, skin lesion and underlying affected bone fol lowing decalcification A4-A5, bone margin en face following decalcifica tion PA/pl MICROSCOPIC DESCRIPTION PERFORMED. [facility] Gross assessment was [facility] performed at [place], Department of [facility] Pathology, [address] [place] [address], Technical component was [facility] performed at [place], Department of [facility] Pathology, [address] [place] [address], Professional component [facility] was performed at [place], Department of [facility] Pathology, [address] [place] [address], Specimen Tissue Performing Organization Address City/[facility] Hospitalcode Phone Number [address] [phone] [employer] culture + smear (non-sputum) (06/19/2019 9:50 AM CDT) Result No acid-fast bacilli isolated in [facility] 42 days [employer] Smear No acid fast bacilli seen [facility] Specimen Wound Performing Organization Address City/State/Zipcode Phone Number [facility] [address] [place] [address] [place] Anaerobic culture (06/19/2019 9:50 AM CDT) Result 4+ Prevotella bivia (A) [facility] Specimen Wound Performing Organization Address [facility] Hospitalcode Phone Number [facility] [address] [place] [address] [place] Surgically obtained culture + gram stain (06/19/2019 9:50 AM CDT) Result No growth [facility] Gram Stain Result 3+ WBCs [facility] Gram Stain Result No organisms seen [facility] Specimen Wound Performing Organization Address [facility] Hospitalcode Phone Number [address] [address] [place] Fungus culture + smear (06/19/2019 9:50 AM CDT) Result No fungus isolated in 28 days [facility] Fungus Smear No fungal elements seen [facility] Specimen Wound Performing Organization Address [facility] Hospitalcode Phone Number [address] [address] [place] SPIN/CONCENTRATION CHARGE (06/19/2019 9:50 AM CDT) Concentration charged Done [facility] Specimen Wound Performing Organization Address [facility]/Zipcode Phone Number [place] [phone] [place] [address] [place] ECG 12 lead (06/19/2019 7:28 AM CDT) Specimen Narrative Performed At Ventricular Rate 67 BPM GE MUSE Atrial Rate 67 BPM P-R Interval 140 ms QRS Duration 88 ms Q-T Interval 446 ms QTC Calculation(Bazett) 471 ms P Cumma[place]id 29 degrees R Cummaquid -24 degrees T [place] 38 degrees Normal sinus rhythm Poor R [...] 446 ms QTC Calculation(Bazett) 471 ms P [place] 29 degrees R Cummaquid -24 degrees T [place] 38 degrees Normal sinus rhythm Poor R wave progression Cannot rule out Possible Anterior infarct , age undetermined Prolonged QT Abnormal ECG No previous ECGs available Confirmed by Stella GOMEZ, [place] ([id number]) o n 06/19/2019 6:07:01 PM Performing Organization Address City/State/Zipcode Phone Number [facility] Vancomycin level, trough (06/18/2019 3:48 AM CDT) Vancomycin Tr 25.9 (H) 10.0 - 20.0 ug/mL [facility] Specimen Blood Narrative Performed At Surface Boss SAVANNA - JAQUELINE Interiano [facility] Performing Organization Address City/State/Zipcode Phone Number [facility] [address] [place] [address] CENTER Manual Differential (06/16/2019 4:49 AM CDT) % Neutros 78 % [facility] % Lymphs 4 % [facility] % Monos 10 % [facility] % Baso 1 % [facility] % Metamyelo 1 (H) 0 - 0 % [facility] % Bands 6 0 - 10 % [facility] # Neutros 12.95 (H) 1.78 - 5.38 K/ul [facility] # Lymphs 0.66 (L) 1.32 - 3.57 K/ul [facility] # Monos 1.66 (H) 0.30 - 0.82 K/uL [facility] # Baso 0.17 (H) 0.01 - 0.08 K/uL [facility] # Metamyelo 0.17 (H) 0.00 - 0.00 K/uL [facility] # Bands 1.00 (H) 0.00 - 0.80 K/uL [facility] Total Counted 100 [facility] WBC Morphology Normal [facility] Platelet Morphology Normal [facility] Polychromasia 1+ few [facility] Artifact Present [facility] Platelet Conc Adequate [facility] Specimen Blood Narrative Performed At Surface Boss ID - Roseanne Overholt [facility] User comments: Slide comments: Performing Organization Address City/State/Zipcode Phone Number [address] [address] CENTER PERIPHERAL VASCULAR REPORT - SCAN (06/15/2019 9:11 PM CDT) Narrative Performed At This result has an attachment that is no t available. POC ACTIVATED CLOTTING TIME (06/15/2019 12:21 PM CDT) Activated Clotting Time 241Comment: : 74-137 sec [facility] seconds, Baseline: TESTED [facility] AT [address], [address]: Surface Boss/Customer Supply Chain Analyst ID = [id number] for CRYSTAL NICHOLE Specimen Blood Performing Organization Address City/State/Zipcode Phone Number [address] [phone] CENTER ABORH, manual (06/15/2019 9:53 AM CDT) ABO Grouping O [facility] Rh Factor POS [facility] Specimen Blood Performing Organization Address City/State/Zipcode Phone Number [facility] [address] [place] [address] Hepatitis B surface antigen (06/15/2019 4:07 AM CDT) HBsAg Screen Nonreactive Nonreactive [facility] Specimen Blood Narrative Performed At Surface Boss ID - LM [facility] Performing Organization Address City/State/Zipcode Phone Number [facility] [address] [place] [address] CENTER XR foot 3 views right (06/14/2019 [...] MD Report Verified Date/Time:06/14/2019 15:36:18 Reading Location: [address] Ortho Con sult Reading Room Procedure [...] Verified Date/Time: 06/14/2019 1 5:36:18 Reading Location: [facility] [id number] Ortho Con sult Reading Room Performing Organization Address City/State/Zipcode Phone Number GE RIS Arterial Doppler Leg, Right (06/14/2019 12:36 PM CDT) Ejection Fraction [facility] ECHO HEAR TLAB [facility] Specimen Impressions Performed At Right Impression [facility] 1. The common femoral, profunda femoral [...] + + + + + + !Prox CHEMICAL SALES REPRESENTATIVE ! !0 !! ! + + + + + + !Mid CHEMICAL SALES REPRESENTATIVE ! !0 !! ! + + + + + + !Dist CHEMICAL SALES REPRESENTATIVE ! !12.2! ! ! + + + + + + !Prox MARTY ! !17.3! ! ! + + + + + + !Mid MARTY ! !30.6!10.4 ! ! + + + + + + !Dist MARTY ! !34.6!9.63 ! ! + + + + + + Narrative Performed At PV LAB - Lower Extremity Arterial Duplex [facility] ECHO HEARTLAB [facility] Demographics Patient BARBARA Lamas Date of Study 06/14/2019 58 Visit [id number] Male of 1960 Referring Pepper Gar Room Number 7601 Physician Debridging Machine Operator Matthew michel, T Physician Procedure Type of [...] of Study 06/14/2019 Age 58 Visit Number [id number] Gen julia Male Accession Number [id number] Michael e of 1960 Referring Pepper Campo Number 7601 Physician Debridging Machine Operator Matthew Schultz [facility] Celi Morgan, T Tanner cueva MD Procedure [...] + + + + + + !Prox CHEMICAL SALES REPRESENTATIVE ! !0 ! ! ! + + + + + + !Mid CHEMICAL SALES REPRESENTATIVE ! !0 ! ! ! + + + + + + !Dist CHEMICAL SALES REPRESENTATIVE ! !12.2 ! ! ! + + + + + + !Prox MARTY ! !17.3 ! ! ! + + + + + + !Mid MARTY ! !30.6 !10.4 ! ! + + + + + + !Dist MARTY ! !34.6 !9.63 ! ! + + + + + + Performing Organization Address City/State/Zipcode Phone Number [facility] E[facility] With PT and DP Doppler Unilateral (06/14/2019 10:39 AM CDT) Ejection Fraction [facility] ECHO HEAR TLAB [facility] [employer] [facility] More[facility] CPACS Specimen Impressions Performed At Right Impression [facility]CHO [facility]ARTLAB [facility] 1. The posterior tibial and dorsalis [...] LAB - Lower Extremity Arterial Proced ure [facility] ECHO [facility]LAB [facility] Demographics Patient NameMARENEE RIVERARGE Date of Study 06/14/2019 58 Visit [id number] Male of 1960 Referring Pepper Gar Room Number 7601 Physician Debridging Machine Operator Matthew michel, T Physician LOGAN Procedure Type [...] of Study 06/14/2019 Age 58 Visit Number [id number] Gen julia Male Accession Number [id number] Michael e of 1960 Referring Pepper Gar Jahaira m Number 7601 Physician Debridging Machine Operator Matthew Saucedo Int erpreting Celi Morgan, T [...] are measured in cm Performing Organization Address City/State/[facility] Phone Number [facility] ECHO HEARTLAB MKCKESSON CPACS after 09/02/2018 Insurance Payer Benefit Plan / Group Subscriber ID Type Phone A Brain [employer] ALL xxxxxxxxx Maps Contracted Advance Directives For more information, please contact:[facility] HospitalPotentia Semiconductor[address] [phone] Code Status Date Activated Date Inactivated Comments Full Code 06/14/2019 8:42 AM 06/27/2019 5:21 PM This code status was determined by: Patient
--- OUTSIDE RECORDS SUMMARY | 2019-09-03 22:21 | XMS REPORT | Continuity of Care Document ---
:1960 Author Organization [facility] t Address [address] [place] [address] Dr. [address]. [address] [place] [address] Care Team Providers Name Role Phone Tito Duval MD Primary Care Physician [phone] Vikas Mirza DPM Attending Clinician Steve Danielle MD Attending Clinician KENY HAGAN Attending Clinician Unavailable Keny Hagan MD Attending Clinician Jeremy Land MD Attending Clinician [phone] Merchant LOGAN Attending Clinician Filomena Alvarez MD Attending Clinician Ruby Mirza DPM Attending Clinician Fela Danielle MD Attending Clinician Jatinder DORSEY Attending Clinician Unavailable Clemente Attending Clinician Unavailable Jorge Attending Clinician Unavailable Venus Trinidad MD Attending Clinician Belle Farrar MD Attending Clinician Lady TAYLOR Attending Clinician Unavailable Susanna Chau Attending Clinician Isabelle Attending Clinician Unavailable Sarabjit Malave MD Attending Clinician [phone] Juan Shah RN Attending Clinician Unavailable Rudi TAYLOR Attending Clinician Unavailable Aron Byrne MD Attending Clinician Maria M ADAMS Attending Clinician Aida Attending Clinician Unavailable KENY HAGAN Admitting Clinician Unavailable Payers Payer Name Policy Policy Number Effective Expiration Source Type Date Date [facility]IGNA [facility] ALLxxxxxxxxxMaps Contracted CIGNA xxxxxxxxxxx 2019 [facility] 00:00:00 [id number] 0-PresentO MEDICAREMEDICARE PART xxxxxxxxxxx 2019 Ramesh lyonssuri Vikas AND 00:00:00 Quaker Bxxxxxxxxxxx2019- [place] Condition Condition Condition Status Onset Resolution Last Treating Co mments Source Name Details Category Date Date Treatment Clinician Date Gangrene [facility] Disease [facility] foot [facility] Medical 00 Bow Ischemia Ischemia Disease [facility] - 00:[facility]: Medical 00 Bow CKD CKD Disease Active [facility] St (chronic (chronic 06-13 - kidney kidney 00:00: Medical disease) disease) 00 Bow stage V stage V requiring requiring chronic chronic dialysis dialysis Type 2 Type [address] [facility] diabetes diabetes 06-13 - mellitus mellitus 00:00: Medica l with with 00 Center diabetic diabetic peripheral peripheral angiopathy angiopathy and and gangrene, gangrene, with with long-term long-term current current use of use of insulin insulin PAD PAD Disease Active [facility] (periphera (periphera 06-13 Regi kes - l artery l artery 00:00: Medica l disease) disease) 00 Center CAD CAD Disease Active [place] (coronary (coronary 09-22 Meth virgen artery artery 00:00: st disease) disease) 00 Hypertensi Hypertensi Disease [place] on 09-22 Methodi 00:00: st 00 ESRD (end ESRD (end Disease Active [facility] [facility] stage stage 09-22 Methodi renal renal 00:00: st disease) disease) 00 on on dialysis dialysis S/P CABG x S/P CABG x Disease Active [facility] 3 3 09-22 Methodi 00:00: st 00 Acute Acute Disease Active [place] blood loss blood loss 09-22 [facility] anemia anemia 00:00: st 00 Blind left Blind left Disease Active [facility] eye eye 09-22 Methodi 00:00: st 00 Type 2 Type 2 Disease Active [place] diabetes diabetes 09-22 Method i mellitus mellitus 00:00: st 00 CAD in CAD in Disease Active Overview[place] 08[place]31 Added Methodi artery artery 00:00: automatic st ally from request for surgery [id number] ESRD on ESRD on Disease Active [facility] St hemodialys hemodialys kes - is is [facility] Allergies, Adverse Reactions, Alerts This patient has no known allergies or adverse reactions. Family History Family Member Diagnosis Comments Start Date Stop Date Source Natural father Diabetes [facility] Natural mother Diabetes [facility] Social History Social Habit Start Date Stop Date Quantity Comments Source History [facility] - Alcohol Std Drinks Medica Center History [facility] - Alcohol Binge Medical [facility] History of tobacco Current smoker [facility] Quaker use [facility] 2019-06-14 2019-06-[address] [facility] - Alcohol Frequency 00:00:00 00:00:[address] [facility] Alcohol intake 2018-10-24 2018-10-24 [facility] 00:00:00 (finding) Smoking Status Start Date Stop Date Source Former smoker 2018-10-24 00:00:00 2018-10-24 00:00:00 [place] [facility] Medications Ordered Filled Start Stop Current Ordering [...] Source Systolic blood 2019-06-27 12:00:00 131 mm[Hg] [facility] Diastolic blood 2019-06-27 12:00:00 67 mm[Hg] [facility] Heart rate 2019-06-27 12:00:00 79 /min [facility] Body temperature 2019-06-27 12:00:00 36.44 Rima [facility] Respiratory rate 2019-06-27 12:00:00 18 /min [facility] Oxygen saturation in 2019-06-27 12:00:00 96 /min [facility] Arterial blood by Medical Ce nter Pulse oximetry Body weight Measured 2019-06-27 11:45:00 99.1 kg [facility] BMI 2019-06-27 11:45:00 28.82 kg/m2 [facility] Body height 2019-06-14 08:36:00 185.4 cm [facility] Systolic blood 2019-05-10 08:04:00 166 mm[Hg] Anato n Quaker pressure Diastolic blood 2019-05-10 08:04:00 80 mm[Hg] Ravi on Quaker pressure Heart rate 2019-05-10 08:04:00 93 /min [...] RHYTHM STRIP - SCAN 2019-07-04 12:40:46 Provider, [facility] TRANSFUSION SERVICE 2019-06-29 18:00:29 Provider, [facility] RHYTHM STRIP - SCAN 2019-06-29 09:01:23 [facility] - 2019-06-29 09:01:[facility] CARDIAC CATH REPORT - 2019-06-29 09:01:16 Provider, [facility] [id number] 2019-06-29 00:00:00 ENCPL [id number] 2019-06-29 00:00:00 ENCPL [id number] 2019-06-29 00:00:00 ENCPL [id number] 2019-06-29 00:00:00 ENCPL [id number] 2019-06-29 00:00:00 ENCPL [id number] 2019-06-29 00:00:00 ENCPL PREPARE LEUKO-REDUCED RBC 2019-06-28 23:54:00 Pepper Hagan [facility] TRANSFUSION SERVICE 2019-06-28 18:00:20 Provider, [facility] POCT-GLUCOSE METER 2019-06-27 12:06:00 Pepper Hagan [facility] HEMODIALYSIS INPATIENT 2019-06-27 11:56:42 Julio Hurst [facility] TRANSFUSE LEUKO-REDUCED 2019-06-27 10:49:[address] [facility] RED BLOOD CELLS [facility] TYPE AND SCREEN, 2019-06-27 08:45:00 Pepper Hagan [facility] POCT-GLUCOSE METER 2019-06-27 07:52:00 Cong [facility] Keny [facility] BASIC METABOLIC PANEL (7) 2019-06-27 03:39:00 Pepper Hagan [facility] MAGNESIUM 2019-06-27 03:39:00 Pepper Hagan [facility] PHOSPHORUS 2019-06-27 03:39:00 [facility] W/PLT COUNT & AUTO 2019-06-27 03:39:00 Pepper Hagan I [facility] POCT-GLUCOSE METER 2019-06-26 20:54:00 Cong [facility] POCT-GLUCOSE METER 2019-06-26 16:40:00 [facility]UCOSE METER 2019-06-26 11:38:00 Cong [facility] POCT-GLUCOSE METER 2019-06-26 07:08:00 [facility]OLIC PANEL (7) 2019-06-26 03:31:00 [facility]UM 2019-06-26 03:31:00 Pepper Hagan [facility] PHOSPHORUS 2019-06-26 03:31:00 Giselle Haganhal Keny [facility] CBC W/PLT COUNT & AUTO 2019-06-26 03:31:00 Pepper Hagan I [facility] POCT-GLUCOSE METER 2019-06-25 23:51:00 Cong [facility] POCT-GLUCOSE METER 2019-06-25 21:05:00 Cong [facility] POCT-GLUCOSE METER 2019-06-25 16:41:00 Cong [facility] POCT-GLUCOSE METER 2019-06-25 13:46:00 Pepper Hagan [facility] POCT-GLUCOSE METER 2019-06-25 11:06:00 Pepper Hagan [facility] HEMODIALYSIS INPATIENT 2019-06-25 08:18:33 Marcio HindsWilder [facility] POCT-GLUCOSE METER 2019-06-25 07:47:00 Pepper Hagan [facility] BASIC METABOLIC PANEL (7) 2019-06-25 06:03:00 Pepper Hagan [facility] MAGNESIUM 2019-06-25 06:03:00 Pepper Hagan [facility] PHOSPHORUS 2019-06-25 06:03:00 [facility] W/PLT COUNT & AUTO 2019-06-25 06:03:00 Pepper Hagan [facility] POCT-GLUCOSE METER 2019-06-24 21:30:[address] [facility] POCT-GLUCOSE METER 2019-06-24 16:41:[address] [facility] POCT-GLUCOSE METER 2019-06-24 11:55:[address] [facility] POCT-GLUCOSE METER 2019-06-24 07:52:[address] [facility] CBC W/PLT COUNT & AUTO 2019-06-24 04:28:00 Pepper Hagan [facility] BASIC METABOLIC PANEL (7) 2019-06-24 04:27:00 [facility]IUM 2019-06-24 04:27:00 Pepper Hagan [facility] PHOSPHORUS 2019-06-24 04:27:00 [facility] POCT-GLUCOSE METER 2019-06-23 21:43:[address] [facility] POCT-GLUCOSE METER 2019-06-23 16:56:00 Merchant, [facility] POCT-GLUCOSE METER 2019-06-23 11:30:00 Merchant, [facility] POCT-GLUCOSE METER 2019-06-23 07:44:00 Merchant, [facility] BASIC METABOLIC PANEL (7) 2019-06-23 04:58:00 HaganPepper lord [facility] MAGNESIUM 2019-06-23 04:58:00 Hagan, Pepper Bustillo [facility] PHOSPHORUS 2019-06-23 04:58:00 Hagan, [facility] VANCOMYCIN LEVEL, RANDOM 2019-06-23 04:58:00 Joyce Wray [facility] CBC W/PLT COUNT & AUTO 2019-06-23 04:58:00 CongGisellePepper Keny [facility] POCT-GLUCOSE METER 2019-06-22 20:50:00 Merchant, [facility] POCT-GLUCOSE METER 2019-06-22 16:55:00 Merchant, [facility] HEMODIALYSIS INPATIENT 2019-06-22 12:02:34 Marcio Hinds [facility] POCT-GLUCOSE METER 2019-06-22 12:00:00 Merchant, [facility] POCT-GLUCOSE METER 2019-06-22 11:28:00 Merchant, [facility] POCT-GLUCOSE METER 2019-06-22 08:00:00 Merchant, [facility] BASIC METABOLIC PANEL (7) 2019-06-22 04:19:00 Cong Pepper Bustillo [facility] MAGNESIUM 2019-06-22 04:19:00 Hagan Pepper Bustillo [facility] PHOSPHORUS 2019-06-22 04:19:00 Hagan [facility] VANCOMYCIN LEVEL, RANDOM 2019-06-22 04:19:00 Destini Santos [facility] CBC W/PLT COUNT & AUTO 2019-06-22 04:19:00 Pepper Hagan I [facility] POCT-GLUCOSE METER 2019-06-21 21:27:00 Merchant, [facility] POCT-GLUCOSE METER 2019-06-21 16:51:00 Merchant, [facility] POCT-GLUCOSE METER 2019-06-21 12:08:00 Merchant, [facility] POCT-GLUCOSE METER 2019-06-21 08:07:00 Merchant, [facility] BASIC METABOLIC PANEL (7) 2019-06-21 03:33:00 Pepper Hagan [facility] MAGNESIUM 2019-06-21 03:33:00 HaganPepper lord [facility] PHOSPHORUS 2019-06-21 03:33:00 Hagan, [facility] CBC W/PLT COUNT & AUTO 2019-06-21 03:33:00 Pepper Hagan I [facility] POCT-GLUCOSE METER 2019-06-20 20:35:00 Merchant, [facility] POCT-GLUCOSE METER 2019-06-20 17:00:00 Merchant, [facility] POCT-GLUCOSE METER 2019-06-20 12:23:00 Merchant, [facility] POCT-GLUCOSE METER 2019-06-20 10:01:00 Merchant, [facility] POCT-GLUCOSE METER 2019-06-20 08:40:00 Merchant, [facility] HEMODIALYSIS INPATIENT 2019-06-20 07:21:04 Wilder Orantes [facility] BASIC METABOLIC PANEL (7) 2019-06-20 04:10:00 Giselle Haganedd Bustillo [facility] MAGNESIUM 2019-06-20 04:10:00 Hagan, [facility] PHOSPHORUS 2019-06-20 04:10:00 Pepper Hagan [facility] VANCOMYCIN LEVEL, RANDOM 2019-06-20 04:10:00 Aicha Kenny [facility] CBC W/PLT COUNT & AUTO 2019-06-20 04:10:00 Pepper Hagan CH I [facility] POCT-GLUCOSE METER 2019-06-19 21:08:[address] [facility] XR FOOT 2 VIEWS RIGHT 2019-06-19 17:57:00 Star Mirza [facility] POCT-GLUCOSE METER 2019-06-19 17:01:[address] [facility] POCT-GLUCOSE METER 2019-06-19 12:52:00 [facility] POCT-GLUCOSE METER 2019-06-19 11:50:00 [facility] TISSUE EXAM 2019-06-19 11:18:00 Star Mirza [facility] SURGICALLY OBTAINED 2019-06-19 09:50:45 Star Mirza [facility] - CULTURE + GRAM STAIN Medical [address] ANAEROBIC CULTURE 2019-06-19 09:50:45 Star Mirza [facility] FUNGUS CULTURE + SMEAR 2019-06-19 09:50:45 Star Mirza [facility] AFB CULTURE + SMEAR 2019-06-19 09:50:45 Star Mirza [facility] (NON-SPUTUM) [facility] SPIN/CONCENTRATION CHARGE 2019-06-19 09:50:00 Star Mirza [facility] AMPUTATION,TOE 2019-06-19 08:30:00 Star Mirza [facility] OSTECTOMY,FOOT/ TOE 2019-06-19 08:30:00 Star Mirza [facility] AMPUTATION,FOOT 2019-06-19 08:30:00 Star Mirza [facility] PROCEDURE W/ SPY ELITE 2019-06-19 08:30:00 Star Mirza [facility] VASCULAR Medical [address] ANGIOGRAPHY ECG 12-LEAD 2019-06-19 07:28:28 Unknown, Hl7 Doctor [facility] POCT-GLUCOSE METER 2019-06-19 07:09:00 Merchant Marko [facility] BASIC METABOLIC PANEL (7) 2019-06-19 04:41:00 HaganPepper [facility] MAGNESIUM 2019-06-19 04:41:00 Hagan, Pepper Bustillo [facility] PHOSPHORUS 2019-06-19 04:41:00 HaganGisellePepper Keny [facility] VANCOMYCIN LEVEL, RANDOM 2019-06-19 04:41:00 Karyna Juarez [facility] CBC W/PLT COUNT & AUTO 2019-06-19 04:41:00 Pepper Hagan [facility] I [facility] POCT-GLUCOSE METER 2019-06-18 21:11:00 Merchant, [facility] POCT-GLUCOSE METER 2019-06-18 17:11:00 Merchant, [facility] POCT-GLUCOSE METER 2019-06-18 11:50:00 Merchant, [facility] POCT-GLUCOSE METER 2019-06-18 10:22:[address] [facility] HEMODIALYSIS INPATIENT 2019-06-18 07:07:00 Trudy Stevens [facility] BASIC METABOLIC PANEL (7) 2019-06-18 03:48:00 HaganePpper lord [facility] MAGNESIUM 2019-06-18 03:48:00 HaganGisellePepper Keny [facility] PHOSPHORUS 2019-06-18 03:48:00 [facility]elle [facility] VANCOMYCIN LEVEL, TROUGH 2019-06-18 03:48:00 Bang Starkey [facility] CBC W/PLT COUNT & AUTO 2019-06-18 03:48:00 Pepper Hagan [facility] I [facility] POCT-GLUCOSE METER 2019-06-17 20:46:00 Shanda [facility] POCT-GLUCOSE METER 2019-06-17 17:16:00 Gadevita [facility] POCT-GLUCOSE METER 2019-06-17 12:23:00 Shanda [facility] POCT-GLUCOSE METER 2019-06-17 08:39:00 Gadicherfransisco [facility] BASIC METABOLIC PANEL (7) 2019-06-17 04:51:00 Pepper Hagan Keny [facility] MAGNESIUM 2019-06-17 04:51:00 Pepper Hagan Keny [facility] PHOSPHORUS 2019-06-17 04:51:00 Giselle Haganhal Keny [facility] CBC W/PLT COUNT & AUTO 2019-06-17 04:51:00 Pepper Hagan [facility] POCT-GLUCOSE METER 2019-06-16 21:25:00 [facility] 2019-06-16 17:50:22 Lisa Velasquez [facility] POCT-GLUCOSE METER 2019-06-16 16:33:[address] [facility] [place] [place] POCT-GLUCOSE METER 2019-06-16 11:50:00 [facility] POCT-GLUCOSE METER 2019-06-16 08:06:00 [facility] BASIC METABOLIC PANEL (7) 2019-06-16 04:49:00 Pepper Hagan [facility] MAGNESIUM 2019-06-16 04:49:00 Pepper Hagan [facility] PHOSPHORUS 2019-06-16 04:49:00 Cong [facility] VANCOMYCIN LEVEL, RANDOM 2019-06-16 04:49:00 Karyna Juarez [facility] CBC W/PLT COUNT & AUTO 2019-06-16 04:49:00 Hagan, Pepper Bustillo I [facility] (CELLAVISION MANUAL DIFF) 2019-06-16 04:49:00 HaganPepper [facility] PERIPHERAL VASCULAR 2019-06-15 21:11:38 ProviderLisa [facility] REPORT - SCAN Scanning [facility] POCT-GLUCOSE METER 2019-06-15 21:07:00 Gadicherwi [facility] POCT-GLUCOSE METER 2019-06-15 17:11:00 Gadicherwi, [facility] POCT-GLUCOSE METER 2019-06-15 13:57:00 Gadicherwi, [facility] POCT-ACT 2019-06-15 12:21:00 [facility] PERIPHERAL ANGIOS / 2019-06-15 10:27:00 Clark Danielle [facility] AORTOGRAM [facility] ABORH, MANUAL 2019-06-15 09:53:00 Mohini Hi [facility] HEMODIALYSIS INPATIENT 2019-06-15 07:34:58 Trudy Stevens [facility] BASIC METABOLIC PANEL (7) 2019-06-15 04:07:00 Pepper Hagan [facility] MAGNESIUM 2019-06-15 04:07:00 Pepper Hagan [facility] PHOSPHORUS 2019-06-15 04:07:00 Pepper Hagan [facility] HEPATITIS B SURFACE 2019-06-15 04:07:00 Giselle Haganhal Keny [facility] ANTIGEN [facility] TYPE AND SCREEN, 2019-06-15 04:07:00 Madelyn Kay [facility] s - AUTOMATED [facility] CBC W/PLT COUNT & AUTO 2019-06-15 04:07:00 Pepper Hagan I [facility] POCT-GLUCOSE METER 2019-06-14 22:19:00 Hagan, [facility] POCT-GLUCOSE METER 2019-06-14 21:18:00 Cong [facility] POCT-GLUCOSE METER 2019-06-14 16:41:00 Cong [facility] BASIC METABOLIC PANEL (7) 2019-06-14 15:12:00 Cong [facility] MAGNESIUM 2019-06-14 15:12:00 Hagan, [facility] PHOSPHORUS 2019-06-14 15:12:00 Hagan, [facility] CBC W/PLT COUNT & AUTO 2019-06-14 15:12:00 Giselle Haganhal Keny [facility] XR FOOT RIGHT 3 VIEW 2019-06-14 13:57:00 Christiano Davis [facility] ARTERIAL DOPPLER LEG, 2019-06-14 12:36:00 Christiano Davis [facility] POCT-GLUCOSE METER 2019-06-14 12:06:00 Cong [facility] PV ARTERIAL ANDREA 2019-06-14 10:39:00 Christiano Davis [facility] POCT-GLUCOSE METER 2019-06-14 09:16:00 Cong [facility] URINE CULTURE 2019-05-10 08:10:00 Vivi, Sonal Steve [...] Malave Kalachand POC GLUCOSE 2018-09-26 16:56:00 Abraham Malave [place]and POC GLUCOSE 2018-09-26 11:44:00 Abraham Malave [place] TYPE AND SCREEN 2018-09-26 08:00:00 Ting Angelo Meth odist PREPARE RBC 2018-09-26 08:00:00 Ting Angelo Meth odist POC GLUCOSE 2018-09-26 07:38:00 Abraham Malaveist Kal[place]and HC COMPLETE BLD COUNT 2018-09-26 05:30:00 Berenice Yousif Quaker W/AUTO DIFF SMEAR REVIEW 2018-09-26 05:30:00 Berenice Yousif Me thodist BASIC METABOLIC PANEL 2018-09-26 04:00:00 Berenice Yousif Quaker ESTIMATED GFR 2018-09-26 04:00:00 Berenice Yousif Il thodist POC GLUCOSE 2018-09-25 22:55:00 AnandaAbraham Kalachand POC GLUCOSE 2018-09-25 21:08:00 Abraham Malave [place] POC GLUCOSE 2018-09-25 18:01:00 Abraham Malave Kalachand ECG 12-LEAD 2018-09-25 17:48:36 Baudilio Beck Meth odist TTE COMPLETE, WO 2018-09-25 17:30:03 Ting Angelo Met hodist CONTRAST, W DOPPLER ([id number]) BASIC METABOLIC PANEL 2018-09-25 14:38:00 Berenice Yousif Quaker ESTIMATED GFR 2018-09-25 14:38:00 Berenice Yousif Il thodist POC GLUCOSE 2018-09-25 14:08:00 Ananda Abrahamlisa Steve Kalachand HC COMPLETE BLD COUNT 2018-09-25 11:32:00 Berenice Yousif Quaker W/AUTO DIFF SMEAR REVIEW 2018-09-25 11:32:00 Berenice Yousif Il thodist HEMODIALYSIS 2018-09-25 09:08:15 PricegerardoThierno Meth odist Mookie POC GLUCOSE 2018-09-25 07:38:00 Abraham Malave [facility] [place] POC GLUCOSE 2018-09-24 21:04:00 Abraham Malave [facility] [place] POC GLUCOSE 2018-09-24 17:20:00 Abraham Malave [facility] [place] POC GLUCOSE 2018-09-24 11:53:00 Abraham Malave Kalachand ECG 12-LEAD 2018-09-24 09:26:10 Baudilio Beck Meth odist POC GLUCOSE 2018-09-24 07:34:00 Abraham Malave Kalachjean carlos BASIC METABOLIC PANEL 2018-09-24 05:15:00 Baudilio Beck [facility] CBC HEMOGRAM 2018-09-24 05:15:00 Baudilio Beck Meth odist MAGNESIUM LEVEL 2018-09-24 05:15:00 Baudilio Beck Meth odist IONIZED CALCIUM 2018-09-24 05:15:00 Baudilio Beck odist ESTIMATED GFR 2018-09-24 05:15:00 Baudilio Beck Meth odist POC GLUCOSE 2018-09-23 21:08:00 Abraham Malave Kalachand POC GLUCOSE 2018-09-23 17:35:00 Abraham Malave Kal[place] POC GLUCOSE 2018-09-23 11:34:00 Abraham Malave XR CHEST 1 VW PORTABLE 2018-09-23 10:49:43 Baudilio Beck on Quaker LINE/DRAIN REMOVAL 2018-09-23 10:25:46 Baudilio Beck ethodist POC GLUCOSE 2018-09-23 09:14:00 Abraham Malave HEPATITIS B SURFACE 2018-09-23 08:41:00 Jatinder Farrar [facility] ANTIGEN HEMODIALYSIS 2018-09-23 07:29:22 Thierno Rizo Mookie XR CHEST 1 VW PORTABLE 2018-09-23 06:44:02 [facility]igno [facility] 12-LEAD 2018-09-23 05:29:05 Baudilio Beck Meth odist POC GLUCOSE 2018-09-23 04:02:00 Abraham Malave Kalachand CBC HEMOGRAM 2018-09-23 01:35:00 Baudilio Beck Meth odist BASIC METABOLIC PANEL 2018-09-23 01:35:00 Baudilio Beck [facility] MAGNESIUM LEVEL 2018-09-23 01:35:00 Baudilio Beck Meth odist IONIZED CALCIUM 2018-09-23 01:35:00 Benigno Jay Met hodist [facility] PARTIAL THROMBOPLASTIN 2018-09-23 01:35:00 Benigno Jay Quaker TIME (PTT) [facility] PHOSPHORUS LEVEL 2018-09-23 01:35:00 Benigno Jay Me [facility]odist [facility] PROTHROMBIN TIME WITH INR 2018-09-23 01:35:00 Benigno Jay [place] [facility] ESTIMATED GFR 2018-09-23 01:35:00 Benigno Jay [facility]odist [facility] POC GLUCOSE 2018-09-22 23:40:00 Abraham Malaveist Kal[place]and POC GLUCOSE 2018-09-22 19:46:00 Abraham Malave Kalachand POTASSIUM LEVEL 2018-09-22 18:00:00 Baudilio Beck Meth odist POC GLUCOSE 2018-09-22 16:19:00 Abraham Malave Kalachand ECG 12-LEAD 2018-09-22 14:07:34 Baudilio Beck Meth odist XR CHEST 1 VW PORTABLE 2018-09-22 13:16:05 Baudilio Beck on Quaker BASIC METABOLIC PANEL 2018-09-22 13:05:00 Baudilio Beck HC COMPLETE BLD COUNT 2018-09-22 13:05:00 Baudilio Beck Quaker W/AUTO DIFF MAGNESIUM LEVEL 2018-09-22 13:05:00 Baudilio Beck Meth odist PHOSPHORUS LEVEL 2018-09-22 13:05:00 Baudilio Beck hodist PROTHROMBIN TIME WITH INR 2018-09-22 13:05:00 Baudilio Beck [facility] PARTIAL THROMBOPLASTIN 2018-09-22 13:05:00 Baudilio Beck on [facility]aker TIME (PTT) ARTERIAL BLOOD GAS 2018-09-22 13:05:00 Baudilio Beck M ethodist ESTIMATED GFR 2018-09-22 13:05:00 Abraham Malaveist [place] IONIZED CALCIUM, ARTERIAL 2018-09-22 13:05:00 Yuly Malave [place] POC GLUCOSE 2018-09-22 12:57:00 Abraham Malave [place] ACTIVATED CLOTTING TIME 2018-09-22 11:53:00 AnandaAbraham so [facility]aker [place] IONIZED CALCIUM, ARTERIAL 2018-09-22 11:35:00 Yuly Malave [facility] [place] GLUCOSE LEVEL, SYRINGE 2018-09-22 11:35:00 Abraham Malave [facility] [place] HEMOGLOBIN, SYRINGE 2018-09-22 11:35:00 Abraham Malave [facility] [place] POTASSIUM, SYRINGE 2018-09-22 11:35:00 Abraham Malave on [facility]aker [place] SODIUM LEVEL, SYRINGE 2018-09-22 11:35:00 Abraham Malave [facility] [place] ARTERIAL BLOOD GAS, 2018-09-22 11:35:00 Abraham Malave [facility] CORRECTED [place] ACTIVATED CLOTTING TIME 2018-09-22 11:34:00 Abraham Malave [facility] [place] GLUCOSE LEVEL, SYRINGE 2018-09-22 10:59:00 Abraham Malave [facility] [place] IONIZED CALCIUM, ARTERIAL 2018-09-22 10:59:00 Yuly Malave [facility] [place] POTASSIUM, SYRINGE 2018-09-22 10:59:00 Abraham Malave on [facility]aker [place] MAGNESIUM LEVEL 2018-09-22 10:59:00 Abraham Malave [facility] [place] SODIUM LEVEL, SYRINGE 2018-09-22 10:59:00 Abraham Malaveton [facility]aker [place] ARTERIAL BLOOD GAS, 2018-09-22 10:59:00 Abraham Malave [facility] CORRECTED [place] HEMOGLOBIN & HEMATOCRIT 2018-09-22 10:59:00 Abraham Malave [place] PLATELET COUNT 2018-09-22 10:59:00 Abraham Malave [place] PROTHROMBIN TIME WITH INR 2018-09-22 10:59:00 Yuly Malave Kal[place] carlos FIBRINOGEN 2018-09-22 10:59:00 Abraham Malave [place] ACTIVATED CLOTTING TIME 2018-09-22 10:56:00 Abraham Malave [place] carlos TRANSFUSE RED BLOOD CELLS 2018-09-22 10:44:44 León Byrne Aron ARTERIAL BLOOD GAS, 2018-09-22 10:32:00 Abraham Malave [facility] CORRECTED [place] SODIUM LEVEL, SYRINGE 2018-09-22 10:32:00 Abraham Malave [facility] [place] HEMOGLOBIN, SYRINGE 2018-09-22 10:32:00 Abraham Malave [facility] [place] POTASSIUM, SYRINGE 2018-09-22 10:32:00 Abraham Malave on Quaker [place] GLUCOSE LEVEL, SYRINGE 2018-09-22 10:32:00 Abraham Malave [place] IONIZED CALCIUM, ARTERIAL 2018-09-22 10:32:00 Yuly Malave [place] ACTIVATED CLOTTING TIME 2018-09-22 10:32:00 Abraham Malave [place] ACTIVATED CLOTTING TIME 2018-09-22 10:04:00 Abraham Malave [place] ANESTHESIA ROGER 2018-09-22 08:52:27 León Byrne Met hodist Arno PA CATHETER 2018-09-22 08:26:40 Urvashi Franz Met chao ARTERIAL BLOOD GAS, 2018-09-22 08:20:00 Abraham Malave Quaker CORRECTED [place] SODIUM LEVEL, SYRINGE 2018-09-22 08:20:00 Abraham Malave [facility]aker [place] POTASSIUM, SYRINGE 2018-09-22 08:20:00 Abraham Malave on Quaker [place] HEMOGLOBIN, SYRINGE 2018-09-22 08:20:00 Abraham Malave [facility] [place] IONIZED CALCIUM, ARTERIAL 2018-09-22 08:20:00 Yuly Malave [facility] [place] GLUCOSE LEVEL, SYRINGE 2018-09-22 08:20:00 Abraham Malave ACTIVATED CLOTTING TIME 2018-09-22 08:14:00 Abraham Malave CENTRAL LINE 2018-09-22 08:09:51 León Byrne Met chao Aron ARTERIAL LINE 2018-09-22 07:51:16 Urvashi Franz Met chao MO AN ELECTIVE 2018-09-22 07:50:21 Urvashi Franz Met chao ENDOTRACHEAL AIRWAY ECG 12-LEAD 2018-09-22 07:14:47 Abraham Malave POC GLUCOSE 2018-09-22 07:06:00 Abraham Malave SODIUM LEVEL, SYRINGE 2018-09-22 07:02:00 Abraham Malave POTASSIUM, SYRINGE 2018-09-22 07:02:00 Abraham Malave on Power [place] GLUCOSE LEVEL, SYRINGE 2018-09-22 07:02:00 Abraham Malave PREPARE RBC 2018-09-22 06:27:00 Abraham Malave SPIROMETRY, DIFFUSION, 2018-09-08 14:20:37 Abraham Malave LUNG VOLUMES Sarabjit Plan of Care Planned Activity Planned Date Details Comments Source Future Scheduled 2019-10-06 INFLUENZA VACCINE [place] [facility] 00:00:00 [code = INFLUENZA VACCINE] Future Scheduled 2009-11-11 COLONOSCOPY SCREENING Ramesh wilson [facility] Test 00:00:00 [code = COLONOSCOPY SCREENING] Future Scheduled 2009-11-11 SHINGLES VACCINES (#1) H moustapha [facility] Test 00:00:00 [code = SHINGLES VACCINES (#1)] Future Scheduled 1969-11-11 DIABETIC FOOT EXAM [place] [facility] 00:00:00 [code = DIABETIC FOOT EXAM] Future Scheduled 1969-11-11 URINE MICROALBUMIN [place] [facility] 00:00:00 [code = URINE MICROALBUMIN] Future Scheduled 1959 DIABETIC RETINAL EYE Tete ston [facility] Test 00:00:00 EXAM [code = DIABETIC RETINAL EYE EXAM] Encounters Start End Encounter Admission Attending Care Care Encounter Source Date/Time Date/Time Type Type Clinicians Facility Department ID 2019-08-21 2019-08-21 Office RYAN Mirza [id number] 16:46:14 16:46:14 Visit Star Bean AMBULATOR 350.1.13.21 Y 0.2.7.2.686 [id number] 2019-08-07 2019-08-07 Office RYAN Mirza [id number] 13:10:09 16:34:44 Visit Star Bean AMBULATOR 350.1.13.21 Y 0.2.7.2.686 [id number] 2019-07-24 2019-07-24 Office RYAN Mirza [id number] 13:35:06 14:05:03 Visit Star Bean AMBULATOR 350.1.13.21 Y 0.2.7.2.686 [id number] 2019-07-17 2019-07-17 Office RYAN Danielle [id number] 11:22:05 16:23:11 Visit Clark Wilson AMBULATOR 350.1.13.21 Y 0.2.7.2.686 [id number] 2019-07-10 2019-07-10 Office RYAN Mirza [id number] 15:58:34 16:52:46 Visit Star Bean AMBULATOR 350.1.13.21 Y 0.2.7.2.686 [id number] 2019-05-10 2019-05-10 Outpatient [facility] [id number] [place] 00:00:00 00:00:00 SONAL [address] 2019-05-10 2019-05-10 Outpatient [facility] [id number] [place] 00:00:00 00:00:00 SONAL [address] 2019-05-09 2019-05-09 Outpatient [facility] [id number] [address] [place] [address] 00:00:00 00:00:00 SONAL [address] 2019-05-08 2019-05-08 Outpatient [facility] [id number] [place] 00:00:00 00:00:00 SONAL [address] 2018-09-08 2018-09-08 Outpatient [facility] [id number] [place] 00:00:00 00:00:00 , ABRAHAM Alanis Metho di [facility] Results Test Description Test Time Test Comments Results Result Comments Source AFB culture + smear (non-sputum) 2019-08-01 12:08:00 Test Item Value Reference Range Interpretation Comme nts Result (test code = 6463-4) No acid-fast bacilli isolated in 42 day s AFB Smear (test code = 15586-5) No acid fast bacilli seen [facility]UTUM[facility]2019-08-01 12:08:00 Test Item Value Reference Range Interpretation Comments CULTURE (BEAKER) (test No acid-fast bacilli code = 1095) isolated in 42 days AFB SMEAR (BEAKER) No acid fast bacilli (test code = 994) seen Fungus culture + [id number] 17:59:00 Test Item Value Reference Range Interpretation Comments Result (test code = No fungus isolated in 6463-4) 28 days Fungus Smear (test No fungal elements seen code = 1406) [facility] [id number] 17:59:00 Test Item Value Reference Range Interpretation Comments CULTURE (BEAKER) (test No fungus isolated in code = 1095) 28 days FUNGUS SMEAR (BEAKER) No fungal elements seen (test code = 1406) Prepare Leuko-Red [id number] 23:54:00 Test Item Value Reference Range Interpretation Comments CROSSMATCH (test code = 2264) COMPATIBLE Unit ABO (test code = O Pos 5611204) UNIT NUMBER (test code = [id number] 934-0) Status (test code = 7269809) TX_TIMEINCHART Blood Bank Product (test code RED BLOOD CELLS = 2263) PRODUCT CODE (test code = X7778O79 933-2) [facility] [id number] 12:17:00 Test Item Value Reference Range Interpretation Comments POC-Glucose Meter (test 159 mg/dL 70-110 H : TE STED AT [facility] code = 1538) [address] [facility], [address] 30: Field Training Manager/Techni estefani ID = [id number] for BLESSING PARTIDA Lab Interpretation (test Abnormal code = 84452-6) [facility] [id number] 12:17:00 Test Item Value Reference Range Interpretation Comments POC-GLUCOSE METER 159 mg/dL 70-110 H : TESTED A T [facility] 6720 (BEAKER) (test code = DASIA Garcia [facility], 1538) [address]: Field Training Manager/Techni estefani ID = [id number] for BLESSING TUTTLE HEMODIALYSIS [id number] 11:56:42SaIzaiah Alcocer, SUNITA 06/27/2019 11:57 AMHD x [...] HEPBIGM, HEPBCAB, HBEAG, HEPCABNo results found for: EFQ5O6Ukgc Profile: No results found for: PROTIME, INR, PTTVA [facility] HospitalType and screen, [id number] 09:43:00 Test Item Value Reference Range Interpretation Comments ABO/RH AUTOMATED (BEAKER) (test O POSITIVE code = 2260) Ab Scrn (test code = 890-4) NEGATIVE [facility] [id number] 08:03:00 Test Item Value Reference Range Interpretation Comments POC-GLUCOSE METER 119 mg/dL 70-110 H : TESTED A T [facility] 6720 (BEAKER) (test code = DASIA [place], 1538) [address]: Field Training Manager/Techni estefani ID = [id number] for Izaiah Barber Basic metabolic [id number] 05:28:00 Test Item Value Reference Range Interpretation [...] (test code = 7.7 mg/dL 8.4-10.2 L 91635-3) EGFR (test code = 5 mL/min/1.73 [place] [address]-7) NOT ACCURATE CREATININE CLEARANCE IN PREDICTING GLOMERULAR FILTRATION RATE . ESTIMATED GFR I S NOT APPLICABLE FOR DIALYSIS PATIENTS. MITCHELL (test code = MITCHELL) Field Training Manager ID - JAQUELINE M Lab Interpretation Abnormal (test code = 20508-4) [facility] [id number] 05:28:00 Test Item Value Reference Range Interpretation [...] S NOT APPLICABLE FOR DIALYSIS PATIEN TS. Field Training Manager ID - JAQUELINE [id number] 05:26:00 Test Item Value Reference Range Interpretation Comments Magnesium (test code = 2.5 mg/dL 1.6-2.6 54163-1) MITCHELL (test code = MITCHELL) Field Training Manager ID - JAQUELINE M Lab Interpretation (test Normal code = 46849-6) [facility]2020-[facility] 05:26:00 Test Item Value Reference Range Interpretation Comments Phosphorus (test code = 6.1 mg/dL 2.3-4.7 H 2777-1) MITCHELL (test code = MITCHELL) Field Training Manager ID - JAQEULINE M Lab Interpretation (test Abnormal code = 18243-9) [facility]PHOSPHORUS2020-04-22 05:26:00 Test Item Value Reference Range Interpretation Comments PHOSPHORUS (BEAKER) (test code = 6.1 mg/dL 2.3-4.7 H 604) Field Training Manager ID - JAQUELINE [id number] 05:26:00 Test Item Value Reference Range Interpretation Comments MAGNESIUM (BEAKER) (test code = 2.5 mg/dL 1.6-2.6 627) Field Training Manager ID Benjie PARSONS MCBC with platelet count + automated [id number] 05:12:00 Test Item Value Reference Range Interpretation [...] 450 K/CU MM MPV (test code = 44667-2) 9.6 fL 9.4-12.4 nRBC (test code = [...] 2801) Lab Interpretation (test code = Abnormal 71215-1) [facility] W/PLT COUNT & AUTO [id number] 05:12:00 Test Item Value Reference Range Interpretation [...] PERCENT (BEAKER) (test code = 2801) POCT-GLUCOSE [id number] 21:05:00 Test Item Value Reference Range Interpretation Comments POC-GLUCOSE METER 250 mg/dL 70-110 H : TESTED A T [facility] 6720 (BEAKER) (test code = [facility], 1538) [address]: Field Training Manager/Techni estefani ID = [id number] for BRADEN RANKINO POCT-GLUCOSE [id number] 16:53:00 Test Item Value Reference Range Interpretation Comments POC-GLUCOSE METER 217 mg/dL 70-110 H : TESTED A T [facility] 6720 (BEAKER) (test code = [facility], 1538) [address]: Field Training Manager/Techni estefani ID = [id number] for ENOCH NTER, ESTEFANYWITHA POCT-GLUCOSE [id number] 11:50:00 Test Item Value Reference Range Interpretation Comments POC-GLUCOSE METER 208 mg/dL 70-110 H : TESTED A T [facility] 6720 (BEAKER) (test code = DASIA Garcia [facility], 1538) [address]: Field Training Manager/Techni estefani ID = [id number] for ZOILA SILVA Anaerobic [id number] 10:57:00 Test Item Value Reference Range Interpretation Comments Result (test code = 4+ Prevotella bivia A 6463-4) Lab Interpretation (test Abnormal code = 02754-6) [facility] [id number] 10:57:00 Test Item Value Reference Range Interpretation Comments CULTURE (BEAKER) (test code A 4+ Prevotella bivia = 1095) POCT-GLUCOSE [id number] 07:24:00 Test Item Value Reference Range Interpretation Comments POC-GLUCOSE METER 231 mg/dL 70-110 H : TESTED A T [facility] 6720 (BEAKER) (test code = [facility] [place], 1538) [address]: Field Training Manager/Techni estefani ID = [id number] for ENOCH WILLSON, ESTEFANYWITHA BASIC METABOLIC [id number] 04:18:00 Test Item Value Reference Range Interpretation [...] S NOT APPLICABLE FOR DIALYSIS PATIEN TS. Field Training Manager ID - BASSEM [id number] 04:17:00 Test Item Value Reference Range Interpretation Comments PHOSPHORUS (BEAKER) (test code = 5.1 mg/dL 2.3-4.7 H 604) Field Training Manager ID - BASSEM [id number] 04:17:00 Test Item Value Reference Range Interpretation Comments MAGNESIUM (BEAKER) (test code = 2.4 mg/dL 1.6-2.6 627) Field Training Manager ID - BASSEM WCBC W/PLT COUNT & AUTO [id number] 04:17:00 Test Item Value Reference Range Interpretation [...] PERCENT (BEAKER) (test code = 2801) POCT-GLUCOSE [id number] 00:03:00 Test Item Value Reference Range Interpretation Comments POC-GLUCOSE METER 245 mg/dL 70-110 H : TESTED A T [facility] 6720 (BEAKER) (test code = [facility], [facility]) [address]: Field Training Manager/Techni estefani ID = [id number] for FRANCK SKELTON POCT-GLUCOSE [id number] 21:18:00 Test Item Value Reference Range Interpretation Comments POC-GLUCOSE METER 252 mg/dL 70-110 H : TESTED A T [facility] 6720 (BEAKER) (test code = [facility], [facility]8) [address]: Field Training Manager/Techni estefani ID = [id number] for DA FLACO KAVYA POCT-GLUCOSE [id number] 16:53:00 Test Item Value Reference Range Interpretation Comments POC-GLUCOSE METER 175 mg/dL 70-110 H : TESTED A T [facility] 6720 (BEAKER) (test code = [facility], [facility]8) 27736: Field Training Manager/Techni estefani ID = [id number] for Do minguez, Isaías POCT-GLUCOSE [id number] 13:58:00 Test Item Value Reference Range Interpretation Comments POC-GLUCOSE METER 191 mg/dL 70-110 H : TESTED A T [facility] 6720 (BEAKER) (test code = [facility], 1538) 88555: Field Training Manager/Techni estefani ID = [id number] for Do minguez, Isaías POCT-GLUCOSE [id number] 11:18:00 Test Item Value Reference Range Interpretation Comments POC-GLUCOSE METER 88 mg/dL 70-110 : TESTED A T [facility] 6720 (BEAKER) (test code = [place], 1538) 15[address]: Field Training Manager/Techni estefani ID = [id number] for CORNELIUS SANDY HEMODIALYSIS [id number] 08:18:33Melody Meza RN 06/25/2019 11:44 AMTolerated HD [...] HEPBIGM, HEPBCAB, HBEAG, HEPCABNo results found for: OAU4E3Jwgh Profile: No results found for: PROTIME, INR, PTTCHI [facility] [id number] 07:59:00 Test Item Value Reference Range Interpretation Comments POC-GLUCOSE METER 112 mg/dL 70-110 H : TESTED A T [facility] 6720 (BEAKER) (test code = [facility] [place], 1538) [address]: Field Training Manager/Techni estefani ID = [id number] for CORNELIUS MAO BASIC METABOLIC [id number] 07:35:00 Test Item Value Reference Range Interpretation [...] S NOT APPLICABLE FOR DIALYSIS PATIEN TS. Field Training Manager ID Benjie BOSCH [id number] 07:27:00 Test Item Value Reference Range Interpretation Comments PHOSPHORUS (BEAKER) (test code = 7.1 mg/dL 2.3-4.7 H 604) Field Training Manager ID - DANITZA [id number] 07:27:00 Test Item Value Reference Range Interpretation Comments MAGNESIUM (BEAKER) (test code = 2.5 mg/dL 1.6-2.6 627) Field Training Manager ID - DANITZA LCBC W/PLT COUNT & AUTO [id number] 06:36:00 Test Item Value Reference Range Interpretation [...] PERCENT (BEAKER) (test code = 2801) POCT-GLUCOSE [id number] 21:42:00 Test Item Value Reference Range Interpretation Comments POC-GLUCOSE METER 171 mg/dL 70-110 H : TESTED A T [facility] 6720 (BEAKER) (test code = [facility], 1538) 39327: Field Training Manager/Techni estefani ID = [id number] for DA KAVYA SAM POCT-GLUCOSE [id number] 16:53:00 Test Item Value Reference Range Interpretation Comments POC-GLUCOSE METER 219 mg/dL 70-110 H : TESTED A T [facility] 6720 (BEAKER) (test code = [facility], 1538) 09414: Field Training Manager/Techni estefani ID = [id number] for OR DALE URRUTIA POCT-GLUCOSE [id number] 12:15:00 Test Item Value Reference Range Interpretation Comments POC-GLUCOSE METER 181 mg/dL 70-110 H : TESTED A T [facility] 6720 (BEAKER) (test code = [facility], 1538) 94137: Field Training Manager/Techni estefani ID = [id number] for OR RENAN, DALE POCT-GLUCOSE [id number] 08:04:00 Test Item Value Reference Range Interpretation Comments POC-GLUCOSE METER 125 mg/dL 70-110 H : TESTED A T [facility] 6720 (BEAKER) (test code = [facility], 1538) 70680: Field Training Manager/Techni estefani ID = [id number] for OR RENAN, DALE BASIC METABOLIC [id number] 05:56:00 Test Item Value Reference Range Interpretation [...] S NOT APPLICABLE FOR DIALYSIS PATIEN TS. Field Training Manager ID - DANITZA [id number] 05:16:00 Test Item Value Reference Range Interpretation Comments PHOSPHORUS (BEAKER) (test code = 5.7 mg/dL 2.3-4.7 H 604) Field Training Manager ID - DANITZA [id number] 05:16:00 Test Item Value Reference Range Interpretation Comments MAGNESIUM (BEAKER) (test code = 2.4 mg/dL 1.6-2.6 627) Field Training Manager ID - PIAYA LCBC W/PLT COUNT & AUTO [id number] 05:04:00 Test Item Value Reference Range Interpretation [...] PERCENT (BEAKER) (test code = 2801) POCT-GLUCOSE [id number] 21:56:00 Test Item Value Reference Range Interpretation Comments POC-GLUCOSE METER 182 mg/dL 70-110 H : TESTED A T [facility] 6720 (BEAKER) (test code = [facility], 1538) 54787: Field Training Manager/Techni estefani ID = [id number] for Hi ll, Cynthia POCT-GLUCOSE [id number] 17:09:00 Test Item Value Reference Range Interpretation Comments POC-GLUCOSE METER 260 mg/dL 70-110 H : TESTED A T [facility] 6720 (BEAKER) (test code = [facility], 1538) 62592: Field Training Manager/Techni estefani ID = [id number] for OR DALE URRUTIA POCT-GLUCOSE [id number] 12:02:00 Test Item Value Reference Range Interpretation Comments POC-GLUCOSE METER 244 mg/dL 70-110 H : TESTED A T [facility] 6720 (BEAKER) (test code = [facility], 1538) 56770: Field Training Manager/Techni estefani ID = [id number] for OR RENAN DALE BASIC METABOLIC [id number] 08:22:00 Test Item Value Reference Range Interpretation [...] S NOT APPLICABLE FOR DIALYSIS PATIEN TS. Field Training Manager ID - [id number] 07:57:00 Test Item Value Reference Range Interpretation Comments PHOSPHORUS (BEAKER) (test code = 5.4 mg/dL 2.3-4.7 H 604) Field Training Manager ID - [id number] 07:57:00 Test Item Value Reference Range Interpretation Comments MAGNESIUM (BEAKER) (test code = 2.3 mg/dL 1.6-2.6 627) Field Training Manager ID - LMPOCT-GLUCOSE [id number] 07:55:00 Test Item Value Reference Range Interpretation Comments POC-GLUCOSE METER 154 mg/dL 70-110 H : TESTED A T [facility] 6720 (BEAKER) (test code = [facility], 1538) [address]: Field Training Manager/Techni estefani ID = [id number] for OR DALE URRUTIA CBC W/PLT COUNT & AUTO [id number] 06:10:00 Test Item Value Reference Range Interpretation [...] (BEAKER) (test code = 2801) Vancomycin level, [id number] 06:06:00 Test Item Value Reference Range Interpretation Comments Vancomycin Rm (test 15.8 ug/mL code = 23267-2) MITCHELL (test code = Reference Range: No MITCHELL) NormalsOperator ID - LM [facility] HospitalVANCOMYCIN LEVEL, [id number] 06:06:00 Test Item Value Reference Range Interpretation Comments VANCOMYCIN RANDOM (BEAKER) (test 15.8 ug/mL code = 523) Reference Range: No NormalsOperator ID - LMPOCT-GLUCOSE [id number] 21:02:00 Test Item Value Reference Range Interpretation Comments POC-GLUCOSE METER 231 mg/dL 70-110 H : TESTED A T [facility] 6720 (BEAKER) (test code = [place], 1538) 39776: Field Training Manager/Techni estefani ID = [id number] for WESTLEY RONDON POCT-GLUCOSE [id number] 17:06:00 Test Item Value Reference Range Interpretation Comments POC-GLUCOSE METER 227 mg/dL 70-110 H : TESTED A T [facility] 6720 (tagUin) (test code = [facility], 1538) 26012: Field Training Manager/Techni estefani ID = [id number] for OR DALE URRUTIA POCT-GLUCOSE [id number] 12:13:00 Test Item Value Reference Range Interpretation Comments POC-GLUCOSE METER 147 mg/dL 70-110 H : TESTED A T [facility] 6720 (tagUin) (test code = [facility], 1538) 56082: Field Training Manager/Techni estefani ID = [id number] for OR DALE URRUTIA HEMODIALYSIS [id number] 12:02:34Izaiah Brown RN 06/22/2019 12:03 PMHD x 3.5 hrs. UF net removed 2.5L. Tolerated tx well. No complaints, not in distress. Report given to primary RN Michelle. Lab Results Component Value Date WBC 15.3 (H) 06/22/2019 HGB 7.8 (L) 06/22/2019 HCT 25.9 (L) 06/22/2019 MCV 94.9 (H) 06/22/2019 PLT 3055106/22/2019 Lab Results Component Value Date GLUCOSE 133 (H) 06/22/2019 CALCIUM 7.9 (L) 06/22/2019 NA 132 (L) 06/22/2019 K 4.5 06/22/2019 CO2 25 06/22/2019 CL 94 (L) 06/22/2019 BUN 56 (H) 06/22/2019 CREATININE 9.79 (H) 06/22/2019 Lab Results Component Value Date HEPBSAG Nonreactive 06/15/2019 ]No results found for: HEPAIGM, HEPBIGM, HEPBCAB, HBEAG, HEPCABNo results found for: NWB0T8Yoms Profile: No results found for: PROTIME, INR, PTTCHI [facility] [id number] 11:39:00 Test Item Value Reference Range Interpretation Comments POC-GLUCOSE METER 138 mg/dL 70-110 H : TESTED A T [facility] 6720 (tagUin) (test code = [facility], 1538) 79748: Field Training Manager/Techni estefani ID = [id number] for Izaiah Barber Tissue [id number] 09:01:00 Test Item Value Reference Range Interpretation Comments Case Report (test code Surgical Pathology = 104) Report Case: [id number] Authorizing Provider: Star Mirza DPM Collected: 06/19/2019 11:18 AM Ordering Location: [facility] Received: 06/19/2019 11:51 AM SERVICES Pathologist: Jonathan Hutchison MD Specimen: Foot, Right, right forefoot DIAGNOSIS (test code = u2ppkAPhREFai0ntDZUywJT 3220) uZzEwMzNcZnRuYmpcdWMxIH gyjeElRDbop0TaG9QmPyZbU FxhbnNpXGRlZmxhbmcxMDMz GBC7wxHiXRApANqoPMXjDYl iCr0zqEMbjDmnNiJdQMWvd0 daktAQisoneAm3u9qjCJEjV wP7pOYmZVecJ9cmrgJzsDYd LVVsLZa9jU25TIOkbN3waAO yNXpxucAkAfJ6CGlwAIDdQg G5QBRwpGAjRQQfM8wnFYYrQ OetXRCjSPzhiSVaZFQ6rIri b9M8cBZdgFHsiNayRlBpKtF mIVEWb2NhFYa0mUyvT2JuQQ NeJnC5iBJgOQUmOBkxNBFfU BHnqoY4yP69XTepihD1gQLl j0Hap49od475eT5tlTLpQFF 0ULLrBLTpaRCcSNXvMYS2PN UglCGxZ7v0VfHxpXNaL6N8G wXthZHsO5F2IlAzvHVbF6B4 DmRceEHyRYUiwALsYv7rpOK wjEClmd6xdv65DUR6l7XyoJ psILB0PDP2LhRzTb1wiCBzV GMeVW7aOoVqfUXpGBUawl82 rPvqUCttrvTxrM9fUuMmWGC vpMScFJGoMP5qgTWcDXCthL 5ucmxjXHBnYnJkcmhlYWRcc TpruxFwKl1nwOkzXQT3JTun R8iuiA2nIeX2OUtdJ5hhkH4 vDPx4OMsmoBP3NCTgmF1sVC 4mecfxr9rpMvMtIJ6gdrjwz 0szCdIjYI6uzpw0w6icHoMf FU9kqizpv2hqRoEaWFdnVFJ lkdcdRTBxm9WftxueAIAhd9 EiI3LuoIiuY84ggOawH79gR WOobWiyqU5hyChtnT4vSxIk ZnMyNFxxbFxwbGFpblxmMVx mczIwXGxhbmcxMDMzXGhpY2 eoUmMmLTTpkXtsUIjox7WrQ GYxXGZzMjAgUEFSVCBBIFJJ J3rACZCOY2BhLMLKOI7KRLB UQVRBUlNBTCBBTVBVVEFUSU 1SPdauGWSpF3ZJO4UIZy4DI lNMCWVPX0ZSMlCQLwTJR3yN SKKFSABOY7ZLSZJET1NGTS3 ccGFyIFVOREVSTFlJTkcgQU LAMDWuAW3NHBPLCl8QEURgX 1TBAE0YPBOCBAUMTi1dzMEj HVVUYMKKOgFID5DPKLZZJO2 WRXJFKKLUGERQN70rGMTtfo XZM54KSZEGNRZGW5MTOGWAC 0ZBZMJAGUWDLM7TBFBDQOEJ GhWZNQDFEA6hLGTqnl40COR 3WjCcj6W5PFY1AKMcOJMfa0 lcZGVmbGFuZzEwMzNcZnRuY wttwFMkRYTkNnRir2cda368 gXAlw5doGJIdMfG6xUEzYEJ ntJKcD316FECbOTprv3vwk3 WzCSCucGBof1I8JDHByksgb Tq5bCcyM84gp8D4YhpkT4sh MSLeDVNmV1WzCK0mHIQpCjh 3QXK6XNM1PURzTBOfL8XiLE 8yZQUcxYLsRDf5o3ubdTbrW HTmUKR8j5goEQwcjrQkJU3d bk9zvLz6d7slwsClLKXfSSW oeBKRMUUyU2OuxImuTa0swF q9mPhfKmedTIA5Qvn4RM3rz i33gtj7rWpeXFJdvkdqVmX7 XGbqUUHukgxaNEb8ZQsiPKP cgKK5GMKvcQXlV1KtLJQkUP 7dspa3QAE0YTjrKWRiWxW1F ZNeuVYtIMGgeEvrMWbsb133 VET1ErInZR6wL0Zrm5C2cR1 maXRcZGVmdGFiNzIwXGZvcm 9oyZNcAFbbg7AeQBA1ceG8c RQbyIOeWNKbGvA2ISpbYT6t ow01JEJnPCN5gc2rbZOlpLp szfAtcYMqKSpbL8BkQNGib8 42DYJeC3YbFCQkn4P9lcVgE pWuRRMezPM4xfA0TLTrDL5n fojsy2tfKQldTUsnSXHazdH 2rbT1NYVlwRZtS6QvmF2bQQ VwQG4pplthw0ezMLW4VJluD TJxPHS2BlNxJVTae1Owzra4 RjPxa8AypLNhNIjkJ68vg37 2ZCYhbaSrC1ouyWNeovpmbU OaogkrSNoaptX7LLPzVUerh ixsRHTtXWsfF4kkBrKcTVRy lPluZYcun1MfSKXiDCNzNkH ltZTgDQLrRxc5CYOctLQyZF SlJuGfP3bicoebZzDVJMMtj 3ycD0uhxEBSdQLcO6KpMQyn vjNeSAzwPDznKMO5KDI0Wg8 5InW4WOQyqx67 CPT Code(s) (test code p0amgYXvDNVqeKVyNyRdPAL = 3357) rVXZhx2zjNTUdeLNgGmUfCu NcZnRuYmpcdWMxXGRlZmYwe 4lat793wPYde0cgJSZpPyT7 qPEkBBDjiVZnQ945x2dfi4g uruNxoUA6QLBeOXO2DVfxcs HvnyQ1SRmlmXSxObS4UPtqb wEuARrxxkWlbeUhOao9FTPp N308NUN7iIgmg9njDML1YAJ yFUWeGbBqEi9ygYRyM888AL TaLLHJHFZyfJa1MMPqtyYbc qUqbAAXv106R473y4ttIONa zvNriJaIhvyqv3gnS138JJJ hcGVydzEyMjQwXHBhcGVyaD H7IWWkNM9gotosGwJjCS6ti dcbHcPnOM0nytu3QhDdCJ2k cmdiNzIwXGhlYWRlcnkwXGZ yg9WpxrauDZ0sJ8Ifc5Q2rM 9maXRcZGVmdGFiNzIwXGZvc t4xmNUmHUnqs3ReQSZ8lkQ3 kSAdrWVrACUvUR23Objvy1T mCzrjVDL6QVOoxgTvk8Ocf8 xfUeBhkoVrM6ojP6GjVHSpZ XRdGLYdLqLojfPyt6Hwu2Ug oUNwmGf6i4rwFJYvUVSkpTb do1exXHM4UZXkG3T3qRRzm0 vcHAofKBHzbMX8fqajZOmpC PJaecL4efgxKIlyXTDowZJ1 blssBVxrVJBmLuX7yptcNPn sPDQfDMN7USuka027XAK1MD xzYmtwYWdlXHBnbmNvbnRcc GduZGVjXHBsYWluXHBsYWlu XGYwXGZzMjRccWxccGxhaW5 zWxUzNzWfMJskYZ7cOMWbP0 lnwVIjWNAkXXCnE0pdJqDip U9tiAxjFUwqrvItDGc6PjU5 IPF6SJHsHOrkDJT8 CLINICAL HISTORY (test s8jezSQsQQYhbLOoTfCcCNC code = 3356) nRGCbd5vjQUPyyQEgPdLzFg NcZnRuYmpcdWMxXGRlZmYwe 6mtw547mLBrh5wnIWVeSaP4 hJWyZSLbrMWhS342h6hlo7i smnHbmSE2QYZcAYF0SHpmxj YedqS3KQmvwICcRyF2NAfya tWiXQtveyOcogTpFpl2UCLa P557JHI9bVvhm3frSAU2ALM oFMYyPzXhZr8ulLIfZ852EZ ZyZBBYCLNbnOn8KIZdnlKuh nNekUBEw208V010a9xzZXTp kyVitViEoxnof4ulW517GLC hcGVydzEyMjQwXHBhcGVyaD I2IKAmPS8jljhzAuCuUE5eg dssYzAiFU6jxdk1FhPgNX8b cmdiNzIwXGhlYWRlcnkwXGZ hd4BpygsaNP0vT4Ajz8W3uC 9maXRcZGVmdGFiNzIwXGZvc p6ziCCqTHvkd3LiUCL5dbJ7 qVHjpZQkYERaSQ38Tzrfo0Y zLocrZOX4TROyblMzi8Mwm0 fxHeDqyvBcN1ugD7QtGHDpD EIhFXPrNmGxtzMgb2Ies5Fr iKXblSl4f1exTPMnZYJvdKw aa7oqGHL9ZHKhD2H9cRYbj0 oyWIlbINSjbWB1eihrYEgxR RSzujV3izllPIkdYNFrtZT7 jnlkXCjjWEPbBxW3tlmmQEp oTGYmPVB8WHsuj360BNF6JU xzYmtwYWdlXHBnbmNvbnRcc GduZGVjXHBsYWluXHBsYWlu XGYwXGZzMjRccWxccGxhaW5 bOiCjHhLyLHtuXA0pJWYxE8 ueeLKtAALfTNCgH8kgUiHzu T1usZdpEVwshiCeZQUdUC3b PNUjBHzoj1SihdhkWLuehct kCN9qXICds20gCYIkbG3dYY ogoG5gAP3uDWBgP5n1WDraV WxccGFyfQ== SPECIMEN SOURCE (test a6edoAZcSGXprKXsPnZdRRE code = 3377) zZTBdq0iaGZYotYDjXrYgYp NcZnRuYmpcdWMxXGRlZmYwe 0opn941sPVuh7cbSLTjKjQ0 aSJuSFPdgOLqD708t4cai9u ihxFlrDW4NSNbXGA9UYdwmi WvutK7LMdquRDyMqM2IVtvr fAzRNhdrkOvcqTlDkr2JKGs B255SJM1yTjld8afXLL4FFC fEQDeQqGuIl2sxQUvN560AL SwHPQVSFGkeKf1AKJmjzWjm jGsxBWRx664H281d8jrMGOi rmGuoOaWruvor2vaA881TWZ hcGVydzEyMjQwXHBhcGVyaD X3EZCrII6edyaaHlIaBM9ra fciWgOwLP6vgkl3DtUlIW8c cmdiNzIwXGhlYWRlcnkwXGZ om0ChxykkVL0zV8Qao4B3mV 9maXRcZGVmdGFiNzIwXGZvc j3biGFkTCzgf5SgGTP6blY9 tCYbnRPrJUNrAZ25Olhek9U oJrmfOCN3LYLzomJpg2Pxd9 pvJgZrmgChD0dpA6PcTBPxW WArOGIiHuDyatEgu4Kux5En aYBchMt6n0cvUFQuDGKmfGr sx6eeVMQ3ZEXdC2S1gHSkx0 kvGWlbIJTyfUO0tltlAGiwA IXyqeF5jizfITrlZCOwsUL0 wdndHEirJXRjWjD9pszhZSu tXVRwJCZ4UZjtd282VDT6DW xzYmtwYWdlXHBnbmNvbnRcc GduZGVjXHBsYWluXHBsYWlu XGYwXGZzMjRccWxccGxhaW5 zOdZtVdWsHYsmKF9lAVHaE9 slsIBqWTAdXLQpC6cwApFpv B3juRvjGZtxxrPsKSCoAHRm Z6x8UPQzp2DmvABieD== GROSS DESCRIPTION t3rurOKqPLSvbZRdYoMqZRE (test code = 3366) yMDRkh1iaCADeaVDxYpRoWf NcZnRuYmpcdWMxXGRlZmYwe 9gjh336mGIul3thJXAzKcA4 xJZkTYCpeYGzD910AEVlGSw no0yqk6GrCOSrfISkl6I9GH TOfksyxKo6jVhbA03wh3J8U lifJ6igKIFsUBbfSADgDDbv nZUaUHQ8LVKrVKN0NVporgG hbpG6ZQyvqDJiGfT9LTb2s9 dejMogDUTnPUX9h9jfKEhto pDgKY3yhe9rxVv0f9pcvzQn XSPePQEczDBORUEhC0JvxVp tHd3klVt1xWebVvvxZSN7Jk e5EM8ans87vew0gAsdJEJdh cqpQyS4MRtkZHFxjafaLLi9 MFxtYXJnbDcyMFxtYXJncjc yMFxtYXJndDcyMFxtYXJnYj pmUKbeMKYvHSL5SSfgc657O UZ4BDwjy7lcv5uzsFVyBxw0 ZLKpQrUaXmqmNVwpk9Aqr2t yQZQqxs1mGSF9vHQqcVobg7 L9gGAqSOQayVOapqOrTSSmK mM4GUurXP8jwx56QIKuMMX6 uj8khVWoaJhkytGblTTpFXl sQ6QdTKDpj750OYPjU7RvXP Tmb9Y3ilViVlPjORDcvXO4j xP3ZYCbUWp4kSFjldW3klWq hSRgM0ubpE49XmOscGOwX2I baH53GvIleNHzT3OirF95Sf YpgOWtF0OrpT85IuZucUMfD RWcnQNlJr0diRVinIXcc8Wm gZHjQLtwW20in779HSAczwV mQ7wexGJisfqcuLLssjmsAB xmczIwXHFsXHBsYWluXGYwX CGiWwVdjZzwqH5tIdXmRbZb PRQDSFWgyZPlDDKcomNoi8L tYWxpbiBsYWJlbGVkIHdpdG ggdGhlIHBhdGllbnQncyBuY M7pYVCkU4Ccz6Dvg41qewGv YmVyIGFuZCAicmlnaHQgZm9 sfCBmeNDgPCW8TrClkHN9Io OofQYtNuPoQ03npUAydfRpP DHxdDMxk2TuWDRagJC6ZOPn j89eUHekiByaePqnBqPasUx ezHReCUipVHKukgAhTJ3wTQ ekTBTrjU0gyVRldMUaUBXxz ogkQS2aWNFid5AiJCxvMFUf DX0yFFuuLT28AQFhVFckMDM dJPVzYWZlDJUsX0RzCWBbSD IbELOjr39nPLSvoKfpFOFdB NZqt7XvADTldCIju9CvQS1g gSBbdBmsidG2mOQ1IQaxEDi hfd6fgotrFmP3wGIuHY67pI QbNKU1aEKqzMxlyRjkWV6hR PaiRSQdkYM6yX7tTFZzSDFx z7jyNSMrCGIui3X4WOKqf9H 0YJDqNDBcjO7nXCcyc4DeGX SapQAkZxXMoRLbsV0jBOQte JytCrPuVsOhH1EqGOEya74w ACtoBJHdLZ3reI2cNJN7ldM hXEC5gIU0FRHgVQ8uZMYmsk 6hUJLehHQ8kGUiONEvgKfby IQrAGuvqBrwsOE4BI8dxQSp hC48EWXgtTWrJE5oFTGrQEj nfj3dQnEqurRcMZ72XYRquf Wyd9AchZcjveNmHYZtMYZ0X k6whGDnTUQktbFth9caz9ri KtjkOFSrePZuSDSoP9Nme98 bV27hEPzpZOEwmcZWYUlfk4 wjnbIizmLuz13xgOE3vAQha SSluSHsX0ekOYJiAZEpF0Zy pMGcRULzCQMqdcQ8yJ54bfS ftWGpWZ1xNQSagGS2PQTcl4 5sgNEpCYUrGISno8gnLYtrx 8rgnsUjbmGqxY5hTGPtvZvi OaQrOwDeC5CuYQFkd18iIIJ bwKmvk7csCdBwUPCxnMCyUj otRMIsc59spQErPVN3IDB0U OJll69xXH8aesptcxLenqZw JDSoVUWqwPlzg7abCbVnIMO okEUtMzysZQZvm85qpLNjMJ NAU8KqWTaaXXF9 MICROSCOPIC z1tdaQYjXYFlkNFgUfPkLLG DESCRIPTION (test code dPMBdl9zvBDDodMWmAjDvAc = 3371) NcZnRuYmpcdWMxXGRlZmYwe 4tei980pEZgs7sbBEKfPyX2 tRQqOYPriCAkD242h1sgs7c izhLapIY3JWYvHDK0KQmccm GicmI2SXdodGPnAeF4PYunl fAyHAjvetCopvPqCap9PEUn M738SZM8aJibe3cpJMT8IQN bTVPkZmGdLr5pvIHnK232WM CcEGEOTJMppSy2ZSZlljPvf yIgvFWVs726K347n9alNMEk hsDwzZdCunava4snM167PBK hcGVydzEyMjQwXHBhcGVyaD S8XBCaFT5naoijOlPbMM9wp sutLhSsDH2hxxl9DgWjKB4y cmdiNzIwXGhlYWRlcnkwXGZ wv7MrukzvMU1cG0Szo3L6qR 9maXRcZGVmdGFiNzIwXGZvc d2vbGDhDRcoj1GkLXT8aoI9 vGFycALeRNGnLD72Kkkwd7S dXlhuEBS1YKHhvjKsy3Akx1 jkVmHsaaTyH1rlE8IqAXXiD IKrZRBtVzRhlqYqx5Eku4Gh eCItiHt9h1miNBMqKJFaoDy te1mhNFO9ODXnV9E8rHTtp6 ibTQtwOZApyON1hvpvRSsvM SDlsrQ7lckdJBgvXNKlhZQ6 ujiwBCfuDCXlLrI3lmehUQa sKJJmSPY5SZxqr611HIT4WC xzYmtwYWdlXHBnbmNvbnRcc GduZGVjXHBsYWluXHBsYWlu XGYwXGZzMjRccWxccGxhaW5 hOjDgVgYaMFlpIH0aEMCcO8 npzNKpATDsYQKlT3mjYgFzk H3jtHyzOTniazRdHEXWBaMT Ys4XUC3dnCRixE== Gross assessment was [facility]'s performed at ([facility], code = 2777) Department of Pathology, [address] [place] [address], Technical component [facility] was performed at ([facility], code = 2778) Department of Pathology, [address] [place], [place] [id number], Professional component [facility] was performed at ([facility], code = 2772) Department of Pathology, [address] [place] [address], [facility] [id number] 09:01:00Surgical Pathology Report Case: [id number] Authorizing Provider: Star Mirza DPM Collected: 06/19/2019 11:18 AM Ordering Location: [facility] Received: 06/19/2019 11:51 AM SERVICES Pathologist: Jonathan Hutchison MD Specimen: Foot, Right, right forefoot PART A RIGHT FOOT, TRANSMETATARSAL AMPUTATION:GANGRENOUS NECROSIS OF SKIN AND SOFT TISSUE.UNDERLYING ACUTE AND CHRONICOSTEOMYELITIS.STATUS POST PRIOR AMPUTATION.BONE AND SOFT TISSUE MARGINS ARE INVOLVED. Signing Pathologist Direct Phone Line: [phone] signed by Jonathan Hutchison MD on 06/22/2019 at 9:01 [id number], [id number] diagnosis: Gangrene, nonhealing wound of right heelA. [...] All three digits display gardner-yellow thickened nails. Engineering Psychologist sections are submitted as follows:Section code: A1, skin and soft tissue margin en faceA2, previous site of amputationA3, skin lesion and underlying affected bone following decalcificationA4-A5, bone margin en face following decalcificationPA/pl PERFORMED.[facility], Department of Pathology, [address] [place] [address], [facility], Department of [facility]ology, [address] [place] [address], [facility], Department of Pathology, [address] [place] [address], YDQQ-GLUCOSE [id number] 08:12:00 Test Item Value Reference Range Interpretation Comments POC-GLUCOSE METER 123 mg/dL 70-110 H : TESTED A T [facility] 6720 (BEAKER) (test code = CHRISTOSGISELLE Garcia [facility], 1538) [address]: Field Training Manager/Techni estefani ID = [id number] for Izaiah Barber BASIC METABOLIC [id number] 06:52:00 Test Item Value Reference Range Interpretation [...] S NOT APPLICABLE FOR DIALYSIS PATIEN TS. Field Training Manager ID - BASSEM [id number] 06:51:00 Test Item Value Reference Range Interpretation Comments PHOSPHORUS (BEAKER) (test code = 6.3 mg/dL 2.3-4.7 H 604) Field Training Manager ID - BASSEM [id number] 06:51:00 Test Item Value Reference Range Interpretation Comments MAGNESIUM (BEAKER) (test code = 2.5 mg/dL 1.6-2.6 627) Field Training Manager ID Benjie LUEVANO WCBC W/PLT COUNT & AUTO [id number] 06:32:00 Test Item Value Reference Range Interpretation [...] (BEAKER) (test code = 2801) VANCOMYCIN LEVEL, [id number] 06:10:00 Test Item Value Reference Range Interpretation Comments VANCOMYCIN RANDOM (BEAKER) (test 19.5 ug/mL code = 523) Reference Range: No NormalsOperator ID - DBPOCT-GLUCOSE [id number] 21:39:00 Test Item Value Reference Range Interpretation Comments POC-GLUCOSE METER 212 mg/dL 70-110 H : TESTED A T [facility] 6720 (BEAKER) (test code = [facility], 153) 18780: Field Training Manager/Techni estefani ID = [id number] for EA GLIN, JALISSIA POCT-GLUCOSE [id number] 17:03:00 Test Item Value Reference Range Interpretation Comments POC-GLUCOSE METER 192 mg/dL 70-110 H : TESTED A T [facility] 6720 ([facility]) (test code = [facility], 153) 40503: Field Training Manager/Techni estefani ID = [id number] for HU NTER, HIWITHA POCT-GLUCOSE [id number] 12:20:00 Test Item Value Reference Range Interpretation Comments POC-GLUCOSE METER 191 mg/dL 70-110 H : TESTED A T [facility] 6720 ([facility]) (test code = [facility], 153) 63096: Field Training Manager/Techni estefani ID = [id number] for CLAUDIA FONTANA Surgically obtained culture + gram [id number] 11:27:00 Test Item Value Reference Range Interpretation Comments Result (test code = 6463-4) No growth Gram Stain Result (test No organisms seen code = 1123) [facility] + GRAM [id number] 11:27:00 Test Item Value Reference Range Interpretation Comments CULTURE (BEAKER) (test code No growth = 1095) GRAM STAIN RESULT (BEAKER) 3+ WBCs (test code = 1123) GRAM STAIN RESULT (BEAKER) No organisms seen (test code = 20811) SPIN/CONCENTRATION [id number] 08:46:00 Test Item Value Reference Range Interpretation Comments Concentration charged (test code = Done 2657) [facility] [id number] 08:46:00 Test Item Value Reference Range Interpretation Comments CONCENTRATION CHARGED (BEAKER) (test Done code = 2653) POCT-GLUCOSE [id number] 08:19:00 Test Item Value Reference Range Interpretation Comments POC-GLUCOSE METER 134 mg/dL 70-110 H : TESTED A T [facility] 6720 (BEAKER) (test code = [facility] [place], 1538) 27599: Field Training Manager/Techni estefani ID = [id number] for ZOILA SILVA BASIC METABOLIC [id number] 04:44:00 Test Item Value Reference Range Interpretation [...] S NOT APPLICABLE FOR DIALYSIS PATIEN TS. Field Training Manager ID - JAQUELINE [id number] 03:56:00 Test Item Value Reference Range Interpretation Comments PHOSPHORUS (BEAKER) (test code = 6.2 mg/dL 2.3-4.7 H 604) Field Training Manager ID Benjie PARSONS [id number] 03:56:00 Test Item Value Reference Range Interpretation Comments MAGNESIUM (BEAKER) (test code = 2.3 mg/dL 1.6-2.6 627) Field Training Manager ID Benjie PARSONS MCBC W/PLT COUNT & AUTO [id number] 03:44:00 Test Item Value Reference Range Interpretation [...] PERCENT (BEAKER) (test code = 2801) POCT-GLUCOSE [id number] 20:47:00 Test Item Value Reference Range Interpretation Comments POC-GLUCOSE METER 234 mg/dL 70-110 H : TESTED A T [facility] 6720 (BEAKER) (test code = [facility], 153) 86364: Field Training Manager/Techni estefani ID = [id number] for EA EARNEST MIRANDAIA POCT-GLUCOSE [id number] 17:12:00 Test Item Value Reference Range Interpretation Comments POC-GLUCOSE METER 192 mg/dL 70-110 H : TESTED A T [facility] 6720 (BEAKER) (test code = [facility], 1538) 97727: Field Training Manager/Techni estefani ID = [id number] for HU NTER, HIWITHA POCT-GLUCOSE [id number] 12:35:00 Test Item Value Reference Range Interpretation Comments POC-GLUCOSE METER 138 mg/dL 70-110 H : [facility] T [facility] 6720 [facility] (test code = [facility], 1538) 51749: Field Training Manager/Techni estefani ID = [id number] for HU NTER, HIWITHA POCT-GLUCOSE [id number] 10:12:00 Test Item Value Reference Range Interpretation Comments POC-GLUCOSE METER 101 mg/dL 70-110 : TESTED A T [facility] 6720 (BEAKER) (test code = [facility], 1538) 13316: Field Training Manager/Techni estefani ID = [id number] for Doc moreau Bassemleti Hernandez POCT-GLUCOSE [id number] 08:51:00 Test Item Value Reference Range Interpretation Comments POC-GLUCOSE METER 96 mg/dL 70-110 : TESTED A T [facility] 6720 (BEAKER) (test code = [facility] [place], 1538) 08440: Field Training Manager/Techni estefani ID = [id number] for Bassem House BASIC METABOLIC [id number] 05:04:00 Test Item Value Reference Range Interpretation [...] S NOT APPLICABLE FOR DIALYSIS PATIEN TS. Field Training Manager ID - DANITZA LVANCOMYCIN LEVEL, [id number] 04:56:00 Test Item Value Reference Range Interpretation Comments VANCOMYCIN RANDOM (BEAKER) (test 18.7 ug/mL code = 523) Reference Range: No NormalsOperator ID - DANITZA [id number] 04:49:00 Test Item Value Reference Range Interpretation Comments PHOSPHORUS (BEAKER) (test code = 8.4 mg/dL 2.3-4.7 H 604) Field Training Manager ID - DANITZA [id number] 04:49:00 Test Item Value Reference Range Interpretation Comments MAGNESIUM (BEAKER) (test code = 2.5 mg/dL 1.6-2.6 627) Field Training Manager ID - DANITZA LCBC W/PLT COUNT & AUTO [id number] 04:22:00 Test Item Value Reference Range Interpretation [...] code = 2801) RAD, FOOT, 2 VIEWS, [id number] 22:40:00Reason for exam:->post op TMA rightFINAL REPORT [...] on 06/19/2019 10:40 PMXR foot 2 views [id number] 22:40:00Interface, External Ris In - 06/19/2019 10:42 [...] Signed: Mirta Alex Verified Date/Time: 06/19/2019 22:40:02 [facility] [id number] 21:19:00 Test Item Value Reference Range Interpretation Comments POC-GLUCOSE METER 221 mg/dL 70-110 H : TESTED A T [facility] 6720 (NOE) (test code = [facility] [place], 1538) 88178: Field Training Manager/Techni estefani ID = [id number] for KAVYA WHITMORE POCT-GLUCOSE [id number] 21:06:00 Test Item Value Reference Range Interpretation Comments POC-GLUCOSE METER 214 mg/dL 70-110 H : TESTED A T [facility] 6720 (BEAKER) (test code = [facility], 1538) 46318: Field Training Manager/Techni estefani ID = [id number] for RENEE BOONE, BLESSING POCT-GLUCOSE [id number] 21:05:00 Test Item Value Reference Range Interpretation Comments POC-GLUCOSE METER 131 mg/dL 70-110 H : TESTED A T [facility] 6720 (BEAKER) (test code = [facility], 1538) 68706: Field Training Manager/Techni estefani ID = [id number] for RENEE HN, BLESSING POCT-GLUCOSE [id number] 21:05:00 Test Item Value Reference Range Interpretation Comments POC-GLUCOSE METER 131 mg/dL 70-110 H : TESTED A T [facility] 6720 (BEAKER) (test code = [facility], 1538) 22185: Field Training Manager/Techni estefani ID = [id number] for RENEE BOONE, BLESSING ECG 12 [id number] 18:07:02Interface, External Ris In - 06/19/2019 6:07 PM CDTVentricular Rate 67 BPMAtrial Rate 67 BPMP-R Interval 140 msQRS Duration 88 msQ-T Interval 446 msQTC Calculation(Bazett) 471 msP [place] 29 degreesR [place] -24 degreesT [place] 38 degreesNormal sinus rhythmPoor R wave progression Cannot rule out Possible Anterior infarct , age undeterminedProlonged QTAbnormal ECGNo previous ECGs availableConfirmed by Stella GOMEZ BASANT (190) on 06/19/2019 6:07:01 [facility] [id number] 12:01:00 Test Item Value Reference Range Interpretation Comments POC-GLUCOSE METER 135 mg/dL 70-110 H : TESTED A T [facility] 6720 (BEAKER) (test code = [facility], 1538) 77965: Field Training Manager/Techni estefani ID = [id number] for GABRIELA OLMSTEAD POCT-GLUCOSE [id number] 09:10:00 Test Item Value Reference Range Interpretation Comments POC-GLUCOSE METER 200 mg/dL 70-110 H : TESTED A T [facility] 6720 (BEAKER) (test code = [facility] [place], 1538) 16132: Field Training Manager/Techni estefani ID = [id number] for FRANCK SKELTON CBC W/PLT COUNT & AUTO [id number] 05:34:00 Test Item Value Reference Range Interpretation [...] (BEAKER) (test code = 2801) BASIC METABOLIC [id number] 05:28:00 Test Item Value Reference Range Interpretation [...] S NOT APPLICABLE FOR DIALYSIS PATIEN TS. Field Training Manager ID - BASSEM [id number] 05:27:00 Test Item Value Reference Range Interpretation Comments PHOSPHORUS (BEAKER) (test code = 6.7 mg/dL 2.3-4.7 H 604) Field Training Manager ID - BASSEM [id number] 05:27:00 Test Item Value Reference Range Interpretation Comments MAGNESIUM (BEAKER) (test code = 2.3 mg/dL 1.6-2.6 627) Field Training Manager ID - BASSEM WVANCOMYCIN LEVEL, [id number] 05:25:00 Test Item Value Reference Range Interpretation Comments VANCOMYCIN RANDOM (BEAKER) (test 21.5 ug/mL code = 523) Reference Range: No NormalsOperator ID - BASSEM WPOCT-GLUCOSE [id number] 17:28:00 Test Item Value Reference Range Interpretation Comments POC-GLUCOSE METER 173 mg/dL 70-110 H : TESTED A T [facility] 6720 (BEAKER) (test code = [facility], 1538) 71282: Field Training Manager/Techni estefani ID = [id number] for OR RENAN, DALE POCT-GLUCOSE [id number] 14:19:00 Test Item Value Reference Range Interpretation Comments POC-GLUCOSE METER 133 mg/dL 70-110 H : TESTED A T [facility] (BEAKER) (test code = [facility], 1538) 80516: Field Training Manager/Techni estefani ID = [id number] for OR PHEY, DALE POCT-GLUCOSE [id number] 10:35:00 Test Item Value Reference Range Interpretation Comments POC-GLUCOSE METER 119 mg/dL 70-110 H : TESTED A T [facility] (BEAKER) (test code = [facility], 1538) 42586: Field Training Manager/Techni estefani ID = [id number] for Joseph andersondian Sonya CBC W/PLT COUNT & AUTO [id number] 05:31:00 Test Item Value Reference Range Interpretation [...] (BEAKER) (test code = 2801) BASIC METABOLIC [id number] 05:17:00 Test Item Value Reference Range Interpretation [...] S NOT APPLICABLE FOR DIALYSIS PATIEN TS. Field Training Manager ID - JAQUELINE [id number] 05:16:00 Test Item Value Reference Range Interpretation Comments PHOSPHORUS (BEAKER) (test code = 7.5 mg/dL 2.3-4.7 H 604) Field Training Manager ID - JAQUELINE [id number] 05:16:00 Test Item Value Reference Range Interpretation Comments MAGNESIUM (BEAKER) (test code = 2.4 mg/dL 1.6-2.6 627) Field Training Manager ID - JAQUELINE MVancomycin level, [id number] 05:04:00 Test Item Value Reference Range Interpretation Comments Vancomycin Tr (test code = 25.9 ug/mL 10-20 H 4092-3) MITCHELL (test code = MITCHELL) Field Training Manager ID - JAQUELINE M Lab Interpretation (test Abnormal code = 05908-1) [facility] [id number] 05:04:00 Test Item Value Reference Range Interpretation Comments VANCOMYCIN TROUGH (BEAKER) (test 25.9 ug/mL 10.0-20.0 H code = 522) Field Training Manager ID - JAQUELINE MPOCT-GLUCOSE [id number] 21:00:00 Test Item Value Reference Range Interpretation Comments POC-GLUCOSE METER 148 mg/dL 70-110 H : TESTED A T [facility] 67[facility] (BEAKER) (test code = [facility] [employer] [facility], 153) 26471: Field Training Manager/Techni estefani ID = [id number] for BRADEN RANKINO POCT-GLUCOSE [id number] 19:14:00 Test Item Value Reference Range Interpretation Comments POC-GLUCOSE METER 137 mg/dL 70-110 H : TESTED A T [facility] 6720 (BEAKER) (test code = [facility] [employer] [facility], 1538) 34606: Field Training Manager/Techni estefani ID = [id number] for VAHID HILLGABIRELA CAM[place]LE POCT-GLUCOSE [id number] 17:46:00 Test Item Value Reference Range Interpretation Comments POC-GLUCOSE METER 205 mg/dL 70-110 H : TESTED A T [facility] 6720 (BEAKER) (test code = DASIA Garcia [facility], 1538) 21481: Field Training Manager/Techni estefani ID = [id number] for CAMILLE BETTS POCT-GLUCOSE [id number] 17:05:00 Test Item Value Reference Range Interpretation Comments POC-GLUCOSE METER 197 mg/dL 70-110 H : TESTED A T [facility] 6720 (BEAKER) (test code = DASIA Garcia [facility], 1538) 52706: Field Training Manager/Techni estefani ID = [id number] for CAMILLE BETTS BASIC METABOLIC [id number] 05:57:00 Test Item Value Reference Range Interpretation [...] S NOT APPLICABLE FOR DIALYSIS PATIEN TS. Field Training Manager ID - DANITZA [id number] 05:54:00 Test Item Value Reference Range Interpretation Comments PHOSPHORUS (BEAKER) (test code = 6.2 mg/dL 2.3-4.7 H 604) Field Training Manager ID - DANITZA [id number] 05:54:00 Test Item Value Reference Range Interpretation Comments MAGNESIUM (BEAKER) (test code = 2.2 mg/dL 1.6-2.6 627) Field Training Manager ID - DANITZA LCBC W/PLT COUNT & AUTO [id number] 05:44:00 Test Item Value Reference Range Interpretation [...] PERCENT (BEAKER) (test code = 2801) POCT-GLUCOSE [id number] 21:37:00 Test Item Value Reference Range Interpretation Comments POC-GLUCOSE METER 262 mg/dL 70-110 H : TESTED A T [facility] 6720 (BEAKER) (test code = [facility], 1538) 08524: Field Training Manager/Techni estefani ID = [id number] for KEIRY WHITMOREO POCT-GLUCOSE [id number] 16:44:00 Test Item Value Reference Range Interpretation Comments POC-GLUCOSE METER 203 mg/dL 70-110 H : TESTED A T [facility] ([facility]) (test code = [facility], 1538) 17128: Field Training Manager/Techni estefani ID = [id number] for NATE MONROY POCT-GLUCOSE [id number] 12:05:00 Test Item Value Reference Range Interpretation Comments POC-GLUCOSE METER 233 mg/dL 70-110 H : TESTED A T [facility] ([facility]) (test code = [facility], 1538) 08763: Field Training Manager/Techni estefani ID = [id number] for HU NTER, HIWITHA POCT-GLUCOSE [id number] 08:18:00 Test Item Value Reference Range Interpretation Comments POC-GLUCOSE METER 146 mg/dL 70-110 H : TESTED A T [facility] ([facility]) (test code = [facility], 1538) 70049: Field Training Manager/Techni estefani ID = [id number] for HU NTER, HIWITHA Manual [id number] 07:32:00 Test Item Value Reference Range Interpretation [...] = 3438) MITCHELL (test code = MITCHELL) Field Training Manager ID - Roseanne OverholtUser comments: Slide comments: Lab Interpretation (test Abnormal code = 98836-7) [facility] W/PLT COUNT & AUTO [id number] 07:32:00 Test Item Value Reference Range Interpretation [...] CONCENTRATION Adequate (CELLAVISION)(BEAKER) (test code = 3438) Field Training Manager ID - Roseanne OverholtUser comments: Slide comments:BASIC [...] S NOT APPLICABLE FOR DIALYSIS PATIEN TS. Field Training Manager ID - JAQUELINE [id number] 06:29:00 Test Item Value Reference Range Interpretation Comments PHOSPHORUS (BEAKER) (test code = 4.9 mg/dL 2.3-4.7 H 604) Field Training Manager ID - JAQUELINE [id number] 06:29:00 Test Item Value Reference Range Interpretation Comments MAGNESIUM (BEAKER) (test code = 2.2 mg/dL 1.6-2.6 627) Field Training Manager ID - JAQUELINE MVANCOMYCIN LEVEL, [id number] 06:23:00 Test Item Value Reference Range Interpretation Comments VANCOMYCIN RANDOM (BEAKER) (test 31.1 ug/mL code = 523) Reference Range: No NormalsOperator ID - JAQUELINE MPOCT-GLUCOSE [id number] 21:18:00 Test Item Value Reference Range Interpretation Comments POC-GLUCOSE METER 233 mg/dL 70-110 H : TESTED A T [facility] 6720 (BEAKER) (test code = DASIA Garcia [place], 1538) [address]: Field Training Manager/Techni estefani ID = [id number] for KAVYA WHITMORE POCT-GLUCOSE [id number] 17:24:00 Test Item Value Reference Range Interpretation Comments POC-GLUCOSE METER 252 mg/dL 70-110 H : TESTED A T [facility] 6720 (BEAKER) (test code = [facility], 1538) 83173: Field Training Manager/Techni estefani ID = [id number] for HU NTER, HIWITHA POCT-GLUCOSE [id number] 17:24:00 Test Item Value Reference Range Interpretation Comments POC-GLUCOSE METER 124 mg/dL 70-110 H : TESTED A T [facility] 6720 (BEAKER) (test code = [facility] Jose [facility], 1538) 32386: Field Training Manager/Techni estefani ID = [id number] for HU NTER, HIWITHA POC ACTIVATED CLOTTING [id number] 12:41:00 Test Item Value Reference Range Interpretation Comments Activated Clotting Time 241 sec : 74 -137 seconds, (test code = 441) Baseline: TESTED AT [facility] 6720 [facility], 770 30: Field Training Manager/Techni estefani ID = [id number] for CRYSTAL SHAH [id number] 12:41:00 Test Item Value Reference Range Interpretation Comments ACTIVATED CLOTTING TIME 241 sec : 74 -137 seconds, (BEAKER) (test code = Baseli ne: TESTED AT [facility]) [address], 770 30: Field Training Manager/Techni estefani ID = [id number] for FE CRYSTAL SOTELO Arterial Doppler Leg, [id number] 10:44:41Ejection FractionSLEH ECHO HEARTLAB MKCKESSON CPACSRight Impression1. [...] + + + + + + !Prox GOLD WHEEL BLOCKER AND POLISHER ! !0 ! ! ! + + +--------- ---------+ + + !Mid GOLD WHEEL BLOCKER AND POLISHER ! !0 ! ! ! + + + + + + !Dist GOLD WHEEL BLOCKER AND POLISHER ! !12.2 ! ! ! + + [...] of Study 06/14/2019 Age 58 Visit Number [id number] Gender Male Accession Number [id number] Date of 1960 Referring Pepper Hagan Room Number 7601 Physician Purchaser Matthew Saucedo Interpreting Celi Morgan [facility] Physician ProcedureType of Study: Extremities [...] + + + + + + !Prox GOLD WHEEL BLOCKER AND POLISHER ! !0 ! ! ! + + + + + + !Mid GOLD WHEEL BLOCKER AND POLISHER ! !0 ! ! ! + + + + + + !Dist GOLD WHEEL BLOCKER AND POLISHER ! !12.2 ! ! ! + + + + + + !Prox MARTY ! !17.3 ! ! ! + + + + + + !Mid MARTY ! !30.6 !10.4 ! ! + + +---- + + + !Dist MARTY ! !34.6 !9.63 ! ! + + + + + +[facility] Doppler Hlkqdgwptc7955-48-31 10:44:15Ejection [facility] ECHO HEARTLAB MKCKESSON CPACSRight Impression1. The [...] of Study 06/14/2019 Age 58 Visit Number [id number] Gender Male Accession Number [id number] of 1960 Referring [facility] Room Number 7601 Physician Purchaser Matthew Saucedo Interpreting Celi Morgan T Physician [...] in cm/s ; Diameters are measured [facility] ABORH, [id number] 10:36:00 Test Item Value Reference Range Interpretation Comments ABO Grouping (test code = 2588) O Rh Factor (test code = 2589) POS [facility] B surface [id number] 04:57:00 Test Item Value Reference Range Interpretation Comments HBsAg Screen (test code = Nonreactive Nonreactive 5195-3) MITCHELL (test code = MITCHELL) Field Training Manager ID - LM Lab Interpretation (test Normal code = 09181-1) [facility] B SURFACE [id number] 04:57:00 Test Item Value Reference Range Interpretation Comments HEPATITIS B SURFACE ANTIGEN (2) Nonreactive Nonreactive (BEAKER) (test code = 2585) Field Training Manager ID - LMBASIC METABOLIC [id number] 04:38:00 Test Item Value Reference Range Interpretation [...] S NOT APPLICABLE FOR DIALYSIS PATIEN TS. Field Training Manager ID - BASSEM [id number] 04:37:00 Test Item Value Reference Range Interpretation Comments PHOSPHORUS (BEAKER) (test code = 5.6 mg/dL 2.3-4.7 H 604) Field Training Manager ID - BASSEM [id number] 04:37:00 Test Item Value Reference Range Interpretation Comments MAGNESIUM (BEAKER) (test code = 2.2 mg/dL 1.6-2.6 627) Field Training Manager ID - BASSEM WCBC W/PLT COUNT & AUTO [id number] 04:34:00 Test Item Value Reference Range Interpretation [...] PERCENT (BEAKER) (test code = 2801) POCT-GLUCOSE [id number] 22:31:00 Test Item Value Reference Range Interpretation Comments POC-GLUCOSE METER 203 mg/dL 70-110 H : TESTED A T [facility] 6720 (BEAKER) (test code [place], = 1538) 26670: Field Training Manager/Techni estefani ID = [id number] for Eghalie , Emma POCT-GLUCOSE [id number] 21:30:00 Test Item Value Reference Range Interpretation Comments POC-GLUCOSE METER 205 mg/dL 70-110 H : TESTED A T [facility] 6720 (BEAKER) (test code = [facility], 1538) 40808: Field Training Manager/Techni estefani ID = [id number] for MAX BOWEN, ARLEN POCT-GLUCOSE [id number] 16:56:00 Test Item Value Reference Range Interpretation Comments POC-GLUCOSE METER 210 mg/dL 70-110 H : TESTED A T [facility] 6720 (BEAKER) (test code = [facility], 153) 77854: Field Training Manager/Techni estefani ID = [id number] for MATEUS ROBLES RAD, FOOT, MIN 3 VIEWS, [id number] 15:36:00Reason for exam:->Right foot gangrene, 2nd toe [...] MDReport Verified Date/Time: 06/14/2019 15:36:18 Reading Location: [facility] C013X Ortho Consult Reading Room XR foot 3 views [id number] 15:36:00Interface, External Ris In - 06/14/2019 3:38 [...] MDReport Verified Date/Time: 06/14/2019 15:36:18 Reading Location: [facility] C013X Ortho Consult Reading Room [facility] METABOLIC [id number] 15:34:00 Test Item Value Reference Range Interpretation [...] S NOT APPLICABLE FOR DIALYSIS PATIEN TS. Field Training Manager ID - [id number] 15:33:00 Test Item Value Reference Range Interpretation Comments PHOSPHORUS (BEAKER) (test code = 4.8 mg/dL 2.3-4.7 H 604) Field Training Manager ID - [id number] 15:33:00 Test Item Value Reference Range Interpretation Comments MAGNESIUM (BEAKER) (test code = 2.2 mg/dL 1.6-2.6 627) Field Training Manager ID - BSCBC W/PLT COUNT & AUTO [id number] 15:20:00 Test Item Value Reference Range Interpretation [...] PERCENT (BEAKER) (test code = 2801) POCT-GLUCOSE [id number] 12:22:00 Test Item Value Reference Range Interpretation Comments POC-GLUCOSE METER 242 mg/dL 70-110 H : TESTED A T [facility] 6720 (BEAKER) (test code = [facility], 1538) 09811: Field Training Manager/Techni estefani ID = [id number] for MATEUS ROBLES POCT-GLUCOSE [id number] 12:16:00 Test Item Value Reference Range Interpretation Comments POC-GLUCOSE METER 206 mg/dL 70-110 H : TESTED A T [facility] 6720 (BEAKER) (test code = [facility], 1538) 15507: Field Training Manager/Techni estefani ID = [id number] for MATEUS ROBLES Occult blood, [id number] 16:59:41 Test Item Value Reference Range Interpretation Comments Occult blood, Negative for Specimen stool (test occult blood. InformationSpe cimen code = Source: StoolSp ecimen 2334-1) Site: Nonpreser [place] Song MethodistAnaerobic [id number] 08:36:57 Test Item Value Reference Range Interpretation Comments Anaerobic No anaerobic Specimen culture isolate organisms InformationS pecimen (test code = isolated. Source: WoundSp ecimen 552) Site: Leg Song MethodistGram [id number] 06:06:36 Test Item Value Reference Range Interpretation Comments Gram stain No WBC's or Specimen isolate (test organisms seen. Information Specimen code = 1469) Source: WoundSp ecimen Site: leg [place] MethodistXR Chest 2 [id number] 12:57:15Hm Interface, Radiology Results Incoming - 10/24/2018 1:00 PM CDTEXAMINATION: XR CHEST 2 VWCLINICAL HISTORY: Z98.890 Other specified postprocedural states, Post operative stateCOMPARISON: 08/24/2018 IMPRESSION:There has been median sternotomy. There is mild cardiomegaly. There is small left effusionand basilar volume loss. There is linear atelectasis in the left midlung. Right lung is clear. Thereis no pneumothorax. Visualized osseous structures are intact. [id number] [facility] [id number] 13:11:35 Test Item Value Reference Range Interpretation Comments POC glucose (test code = 121 mg/dL 65-99 H [facility] Notified 48242-5) RNMeter ID: [id number] tor: Jane kennedy Lab Interpretation (test Abnormal code = 04249-5) [facility] metabolic [id number] 06:06:43 Test Item Value Reference Range Interpretation Comments Sodium (test code = 2951-2) 135 135- 148 mEq/L Potassium (test code = 2823-3) 4.5 3.5- 5.0 mEq/L Chloride (test code = 2075-0) 94 98- 112 mEq/L L CO2 (test code = 2028-9) 23 24- 31 mEq/L L Anion gap (test code = 11601-6) 18@ANIO 7- 15 mEq/L H BUN (test code = 3094-0) 67 mg/dL 6-20 H Creatinine (test code = 2160-0) 8.41 mg/dL 0.7-1.2 H Glucose (test code = 2345-7) 146 mg/dL 65-99 H Calcium (test code = 75362-5) 7.9 mg/dL 8.3-10.2 L Lab Interpretation (test code = Abnormal 96719-3) [facility] 12 [id number] 18:45:36 Test Item Value Reference Range Interpretation Comments Ventricular rate (test 111 code = 253) Atrial rate (test code 111 = 255) MO interval (test code 130 = 266) QRSD [...] or before 22-SEP-2018)-Lateral injury pattern-^^ ^^ ACUTE SD ^^ ^^-Abnormal ECG-In automated comparison with ECG of 24-SEP-2018 09:26,-No significant change was found- [place] MethodistEchocardiogram complete w contrast and 3D if [id number] 12:03:00Interface, Radiology Results In - 09/26/2018 12:03 PM CDT Echocardiography Report [id number]Name: BARBARA GRIJALVA Pat.ID: [id number].Date: 09/25/2018 Refer.MD: ABRAHAM MALAVE MD Exam Time: 4:16:00 PM Study Type:Routine Echo Height: 72in BSA: 2.24 m2 Age: 9 1960,57Y Sex: MALE BP: 168/81 HR: 91 bpm Sonogrphr: JESSE Oscar Pat. Stat.:Inpatient Room: 2023 Study Status:Final Echo Event ID:[id number] Order ID: [id number] Reason for Study:S/P CABG History / Clinical:Diabetes, [...] estimate PA systolic pressure. -------MEASUREMENTS: 2DParasternal Long [place] Ds 3.9 cm LVPWd 1.5 cm [...] ml Signed 09/26/2018 12:03 PMSu Myles Santana M.D.[facility]anoPreparGold[facility], 1 Hasad2521-03-07 09:52:00 Test Item Value Reference Range Interpretation Comments Product name (test Red Cells AS1 Leukored code = 25) Irrad Unit number (test code [id number] = [id number]) Product code (test E9834Q55 code = 3092) Dispense status (test Transfused code = 24) Blood expiration date (test code = 302) Blood type code (test 5100 code = 308) Blood type (test code O POSITIVE = 1314) Song MethodistType and [id number] 09:27:00 Test Item Value Reference Range Interpretation Comments ABO grouping (test code = 883-9) O Rh type (test code = 61228-4) POS Antibody screen (gel) (test code = NEG 890-4) [place] MethodistSmear [id number] 09:26:37 Test Item Value Reference Range Interpretation Comments Platelet slide review (test code Charmaine adequate = 26374-9) Anisocytosis (test code = 702-1) Moderate Polychromasia (test code = Moderate 75364-1) Ovalocytes (test code = 774-0) Moderate Enlarged platelets (test code = Moderate A 23008-6) Lab Interpretation (test code = Abnormal 09113-2) Song MethodistIonized [id number] 07:05:32 Test Item Value Reference Range Interpretation Comments pH (test code = 2753-2) 7.58 Ionized calcium (test code = 0.93 mmol/L 1.11-1.32 L ) Lab Interpretation (test code = Abnormal 99498-7) Song QuakerMagnesium [id number] 06:57:17 Test Item Value Reference Range Interpretation Comments Magnesium (test code = 59146-8) 2.3 mg/dL 1.6-2.6 [facility] nbixciqz4531-23-40 06:41:50 Test Item Value Reference Range Interpretation Comments WBC (test code = 24475-7) 10.82 4.50- 11.00 k/uL RBC (test code = 62423-3) 2.39 m/uL 4.4-6 L HGB (test code = 718-7) 7.3 g/dL 14-18 L HCT (test code = 4544-3) 22.0 % 41-51 L MCV (test code = 787-2) 92.1 fL 82-100 MCH (test code = 785-6) 30.5 pg 27-34 MCHC (test code = 786-4) 33.2 g/dL 31-37 RDW - SD (test code = 18483-9) 49.8 fL 37-55 MPV (test code = 85023-4) 11.3 fL 8.8-13.2 Platelet count (test code = 137 150- 400 k/uL L 63334-6) Nucleated RBC (test code = 0.00 /100 WBC 28030-9) Lab Interpretation (test code = Abnormal 50929-0) [place] MethodistXR Chest 1 Vw Krpsojlp9974-20-87 10:56:32Hm Interface, Radiology Results 09/23/2018 10:59 AM [...] with sternotomy and decreased pneumomediastinum/pneumopericardium.4. Unchanged osseous structures.[facility]-[id number] MethodistHepatitis B surface pkscspu0530-94-50 10:32:02 Test Item Value Reference Range Interpretation Comments Hepatitis B surface Ag (test Non-reactive Non-reactive code = 5195-3) Song MethodistLine/Drain Utycdha7165-59-39 10:25:46Baudilio Beck Jr., PA-C 09/23/2018 10:26 AMLine/Drain [...] (test code = 2777-1) 3.5 mg/dL 2.4-4.5 [place] MethodistPotassium [id number] 18:29:34 Test Item Value Reference Range Interpretation Comments Potassium (test code = 2823-3) 5.1 3.5- 5.0 mEq/L H Lab Interpretation (test code = Abnormal 89807-0) [place] MethodistArterial blood [id number] 13:50:55 Test Item Value Reference Range Interpretation [...] 2708-6) Lab Interpretation (test code = Abnormal 13416-0) [place] MethodistIonized calcium, gnsjegtt0558-46-38 13:50:55 Test Item Value Reference Range Interpretation Comments Ionized calcium, arterial (test 1.00 mmol/L 1.11-1.32 L code = 88398-3) Lab Interpretation (test code = Abnormal 46005-1) [place] MethodistActivated clotting [id number] 12:24:04 Test Item Value Reference Range Interpretation Comments Activated clotting time 101 96- 152 sec [facility] [place] ID: (test code = 5298) [id number] perator: Pamela Landin Song MethodistArterial blood gas, gjsdxksvh3978-24-32 11:43:11 Test Item Value Reference Range Interpretation [...] pH, arterial corrected (test code = 7.31 48028-5) pCO2, arterial corrected (test code 54 mmHg = 30754-0) pO2, arterial corrected (test code = 255 mmHg 72659-1) Base excess, arterial (test code = 0 -2 - 2 mEq-L 1925-7) Lab Interpretation (test code = Abnormal 27186-1) [place] MethodistGlucose level, nsxqzus6911-28-30 11:43:11 Test Item Value Reference Range Interpretation Comments Glucose, syringe (test code = 158 mg/dL 65-99 H 2345-7) Lab Interpretation (test code = Abnormal 41018-0) Song MethodistHemoglobin, xjcntrd8017-96-21 11:43:11 Test Item Value Reference Range Interpretation Comments Hemoglobin, syringe (test code = 8.4 g/dL 14-18 L 718-7) Lab Interpretation (test code = Abnormal 84378-7) Song MethodistPotassium, dehdyyz4792-10-94 11:43:11 Test Item Value Reference Range Interpretation Comments Potassium, syringe (test code = 5.9 3.5- 5.0 mEq/L H 2007) Lab Interpretation (test code = Abnormal 83588-3) Song MethodistSodium level, uccxnxv7870-53-14 11:43:11 Test Item Value Reference Range Interpretation Comments Sodium, syringe (test code = 2947-0) 134 135- 148 mEq/L L Lab Interpretation (test code = Abnormal 89584-6) Song GxvdjxlelMdnmzipsrh5379-69-35 11:26:39 Test Item Value Reference Range Interpretation Comments Fibrinogen (test code = 28762-4) 340 mg/dL 200-450 Song MethodistPlatelet ogvia4734-67-84 11:18:23 Test Item Value Reference Range Interpretation Comments Platelet count (test code = 51780-3) 149 150- 400 k/uL L Lab Interpretation (test code = Abnormal 49905-9) [place] MethodistHemoglobin & utibmavbhx6884-11-03 11:18:23 Test Item Value Reference Range Interpretation Comments HGB (test code = 718-7) 7.8 g/dL 14-18 L HCT (test code = 4544-3) 23.3 % 41-51 L Lab Interpretation (test code = Abnormal 86103-5) [place] MethodistSpirometry, diffusion, lung uwxyler4605-65-47 14:20:37 Test Item Value Reference Range Interpretation [...]
--- NOTE | 2019-09-04 00:07 | EDPHYS ---
Physician Documentation [facility] Name: Dayton Grijalva Age: 58 yrs Sex: Male : 1960 Arrival Date: 09/03/2019 Time: 22:09 Bed 2 Private MD: ED Physician Kerwin Oquendo HPI: 09/02 22:44 This 58 yrs old Male presents to ER via EMS with complaints of High Blood mh7 Pressure. 22:45 The patient has elevated blood pressure and discovered this at home, with a home mh7 device, Patient seen and treated here earlier this evening for elevated blood pressure. He was discharged home and blood pressure went to 96/50 and son had him sent back to the ER for evaluation. Patient denies any headache, chest pain, SOB, abdominal pain, dizziness, weakness, or other complaints.. Onset: The symptoms/episode began/occurred today. Modifying factors: The symptoms are aggravated by nothing, The symptoms are alleviated by prescription meds. Associated signs and symptoms: Pertinent negatives: chest pain, dizziness, dyspnea, headache, lightheadedness, nausea, visual changes, vomiting, weakness. Severity of symptoms: At its worst the blood pressure was 220 mm Hg, in the emergency department the blood pressure is improved, markedly, 155 mm Hg. The patient has experienced similar episodes in the past, multiple times. 22:45 The patient has been recently seen at the [facility] Emergency mh7 Department, today. Historical: - Allergies: 22:22 No Known Allergies; ao - Home Meds: 22:22 spironolactone 25 mg Oral tab 1 tab once daily [Active]; furosemide 40 mg Oral tab 1 ao tab 2 times per day [Active]; carvedilol 12.5 mg Oral tab 1 tab 2 times per day [Active]; gabapentin 300 mg Oral cap 1 cap daily [Active]; aspirin 81 mg Oral chew 1 tab once daily [Active]; sevelamer carbonate 800 mg oral tab 1 tab every 8 hours [Active]; Acidophilus Oral cap [Active]; - PMHx: 22:22 Diabetes - IDDM; HD-MWF; Hypertension; ao - PSHx: 22:22 None; ao - Immunization history:: Adult Immunizations up to date. - Social history:: Smoking status: Patient denies any tobacco usage or history of. Patient/guardian denies using alcohol, street drugs. ROS: 22:45 Constitutional: Negative for fever, chills, and weight loss, Eyes: Negative for injury, mh7 pain, redness, and discharge, ENT: Negative for injury, pain, and discharge, Neck: Negative for injury, pain, and swelling, Cardiovascular: Negative for chest pain, palpitations, and edema, Respiratory: Negative for shortness of breath, cough, wheezing, and pleuritic chest pain, Abdomen/GI: Negative for abdominal pain, nausea, vomiting, diarrhea, and constipation, Back: Negative for injury and pain, : Negative for injury, bleeding, discharge, and swelling, MS/Extremity: Negative for injury and deformity, Skin: Negative for injury, rash, and discoloration, Neuro: Negative for headache, weakness, numbness, tingling, and seizure, Psych: Negative for depression, anxiety, suicide ideation, homicidal ideation, and hallucinations, Allergy/Immunology: Negative for hives, rash, and allergies, Endocrine: Negative for neck swelling, polydipsia, polyuria, polyphagia, and marked weight changes, Hematologic/Lymphatic: Negative for swollen nodes, abnormal bleeding, and unusual bruising. Exam: 22:45 Constitutional: This is a well developed, well nourished patient who is awake, alert, mh7 and in no acute distress. Head/Face: Normocephalic, atraumatic. Eyes: Pupils equal round and reactive to light, extra-ocular motions intact. Lids and lashes normal. Conjunctiva and sclera are non-icteric and not injected. Cornea within normal limits. Periorbital areas with no swelling, redness, or edema. ENT: Nares patent. No nasal discharge, no septal abnormalities noted. Tympanic membranes are normal and external auditory canals are clear. Oropharynx with no redness, swelling, or masses, exudates, or evidence of obstruction, uvula midline. Mucous membranes moist. Neck: Trachea midline, no thyromegaly or masses palpated, and no cervical lymphadenopathy. Supple, full range of motion without nuchal rigidity, or vertebral point tenderness. No Meningismus. Chest/axilla: Normal chest wall appearance and motion. Nontender with no deformity. No lesions are appreciated. Cardiovascular: Regular rate and rhythm with a normal S1 and S2. No gallops, murmurs, or rubs. Normal PMI, no JVD. No pulse deficits. Respiratory: Lungs have equal breath sounds bilaterally, clear to auscultation and percussion. No rales, rhonchi or wheezes noted. No increased work of breathing, no retractions or nasal flaring. Abdomen/GI: Soft, non-tender, with normal bowel sounds. No distension or tympany. No guarding or rebound. No evidence of tenderness throughout. Back: No spinal tenderness. No costovertebral tenderness. Full range of motion. Skin: Warm, dry with normal turgor. Normal color with no rashes, no lesions, and no evidence of cellulitis. MS/ Extremity: Pulses equal, no cyanosis. Neurovascular intact. Full, normal range of motion. Neuro: Awake and alert, GCS 15, oriented to person, place, time, and situation. Cranial nerves II-XII grossly intact. Motor strength 5/5 in all extremities. Sensory grossly intact. Cerebellar exam normal. Normal gait. Psych: Awake, alert, with orientation to person, place and time. Behavior, mood, and affect are within normal limits. Vital Signs: 22:14 BP 155 / 83; Pulse 69; Resp 14; Temp 97.1(O); Pulse Ox 98% ; Weight 90.72 kg; Height 5 ao ft. 8 in. (172.72 cm); Pain 0/10; 22:30 BP 158 / 83; Pulse 66; Resp 16; Pulse Ox 99% on R/A; ao 22:45 BP 165 / 83; Pulse 63; Resp 14; Pulse Ox 98% on R/A; ao 23:06 BP 176 / 84; Pulse 65; Resp 18; Pulse Ox 99% on R/A; Pain 0/10; ao 23:36 BP 178 / 86; Pulse 63; Resp 16; Pulse Ox 98% ; ao 22:14 Body Mass Index 30.41 (90.72 kg, 172.72 cm) ao MDM: 22:43 Patient medically screened. [facility] 09/03 00:04 Differential diagnosis: hypertensive crisis, Malignant HTN, Hypertension. Data [facility] reviewed: vital signs, nurses notes, EMS record, old medical records. Data interpreted: business services tech: rate is 63 beats/min, rhythm is normal sinus rhythm, regular, Interpretation: normal rate, normal rhythm, Pulse oximetry: on room air is 98 %. Interpretation: normal. Counseling: I had a detailed discussion with the patient and/or guardian regarding: the historical points, exam findings, and any diagnostic results supporting the discharge/admit diagnosis, the presence of at least one elevated blood pressure reading (>120/80) during this emergency department visit, the need for outpatient follow up, to return to the emergency department if symptoms worsen or persist or if there are any questions or concerns that arise at home. Response to treatment: the patient's symptoms have markedly improved after treatment. Administered Medications: No medications were administered Disposition: 09/04/19 00:06 Discharged to Home. Impression: Hypertension. - Condition is Stable. - Discharge Instructions: Hypertension, Wrir-nl-Zcbc. - Medication Reconciliation Form, Thank You Letter, Antibiotic Education, Prescription Opioid Use form. - Follow up: Private Physician; When: 1 - 2 days; Reason: Worsening of condition, Recheck today's complaints, Re-evaluation by your physician. - Problem is chronic. - Symptoms have improved. Signatures: Tim Shearer RN RN ao Holmes, Maurice, MD MD mh7 Corrections: (The following items were deleted from the chart) 00:40 00:06 09/04/2019 00:06 Discharged to Home. Impression: Hypertension. Condition is ao Stable. Forms are Medication Reconciliation Form, Thank You Letter, Antibiotic Education, Prescription Opioid Use. Follow up: Private Physician; When: 1 - 2 days; Reason: Worsening of condition, Recheck today's complaints, Re-evaluation by your physician. Problem is chronic. Symptoms have improved. mh7
--- NOTE | 2019-09-04 00:07 | ER ---
Nurse's Notes [facility] Name: Dayton Grijalva Age: 58 yrs Sex: Male : 1960 Arrival Date: 09/03/2019 Time: 22:09 Bed 2 Private MD: Diagnosis: Hypertension Presentation: 09/02 22:14 Chief complaint: EMS states: Patient is dialysis M,W,F and today after dialysis felt ao his BP was low. Per EMS was not able to get a BP due to low reading and patient was unresponsive. Pt become alert and BP came up to 162/93. Pt C/O weakness at this time. Coronavirus screen: Proceed with normal triage. Ebola Screen: Patient negative for fever greater than or equal to 101.5 degrees Fahrenheit, and additional compatible Ebola Virus Disease symptoms Patient denies exposure to infectious person. Patient denies travel to an Ebola-affected area in the 21 days before illness onset. Initial Sepsis Screen: Does the patient meet any 2 criteria? No. Patient's initial sepsis screen is negative. Does the patient have a suspected source of infection? No. Patient's initial sepsis screen is negative. Risk Assessment: Do you want to hurt yourself or someone else? Patient reports no desire to harm self or others. Onset of symptoms was September 03, 2019 at 19:00. 22:14 Method Of Arrival: EMS: [facility] ao 22:14 Acuity: SAMARA 3 ao Historical: - Allergies: 22:22 No Known Allergies; ao - Home Meds: 22:22 spironolactone 25 mg Oral tab 1 tab once daily [Active]; furosemide 40 mg Oral tab 1 ao tab 2 times per day [Active]; carvedilol 12.5 mg Oral tab 1 tab 2 times per day [Active]; gabapentin 300 mg Oral cap 1 cap daily [Active]; aspirin 81 mg Oral chew 1 tab once daily [Active]; sevelamer carbonate 800 mg oral tab 1 tab every 8 hours [Active]; Acidophilus Oral cap [Active]; - PMHx: 22:22 Diabetes - IDDM; HD-MWF; Hypertension; ao - PSHx: 22:22 None; ao - Immunization history:: Adult Immunizations up to date. - Social history:: Smoking status: Patient denies any tobacco usage or history of. Patient/guardian denies using alcohol, street drugs. Screenin:25 Abuse screen: Denies threats or abuse. Denies injuries from another. Nutritional ao screening: No deficits noted. Tuberculosis screening: No symptoms or risk factors identified. Fall Risk None identified. Assessment: 22:23 General: Appears in no apparent distress. comfortable, Behavior is calm, cooperative, ao appropriate for age. Pain: Denies pain. Neuro: Level of Consciousness is awake, alert, obeys commands, Oriented to person, place, time, situation, Appropriate for age Moves all extremities. Full function Speech is normal. Cardiovascular: Capillary refill < 3 seconds Patient's skin is warm and dry. Respiratory: Airway is patent. GI: No signs and/or symptoms were reported involving the gastrointestinal system. : No signs and/or symptoms were reported regarding the genitourinary system. EENT: No signs and/or symptoms were reported regarding the EENT system. Derm: Skin is intact, Skin temperature is warm. Musculoskeletal: Circulation, motion, and sensation intact. Range of motion: intact in all extremities. 22:40 Reassessment: Dr Oquendo and RN at bedside talking to patient and family member by ao phone. Education provided on Hype Hypotension. 22:54 Reassessment: Patient in Observation for an hour on BP will be DC home is no ao complication. 09/03 00:24 Reassessment: DC home patient agree with POC and follow up with PCP and dialysis POC. ao Vital Signs: 09/02 22:14 BP 155 / 83; Pulse 69; Resp 14; Temp 97.1(O); Pulse Ox 98% ; Weight 90.72 kg; Height 5 ao ft. 8 in. (172.72 cm); Pain 0/10; 22:30 BP 158 / 83; Pulse 66; Resp 16; Pulse Ox 99% on R/A; ao 22:45 BP 165 / 83; Pulse 63; Resp 14; Pulse Ox 98% on R/A; ao 23:06 BP 176 / 84; Pulse 65; Resp 18; Pulse Ox 99% on R/A; Pain 0/10; ao 23:36 BP 178 / 86; Pulse 63; Resp 16; Pulse Ox 98% ; ao 22:14 Body Mass Index 30.41 (90.72 kg, 172.72 cm) ao ED Course: 22:09 Patient arrived in ED. cf2 22:14 Shearer, Tim, RN is Primary Nurse. ao 22:19 Triage completed. ao 22:21 Kerwin Oquendo MD is Attending Physician. [facility] 22:23 Arm band placed on right wrist. Patient placed in an exam room, on a stretcher, on ao methods analyst, on pulse oximetry, Patient notified of wait time. 22:25 Patient has correct armband on for positive identification. junior java developer on. Pulse ao ox on. NIBP on. 09/03 00:24 No provider procedures requiring assistance completed. Patient did not have IV access ao during this emergency room visit. Administered Medications: No medications were administered Outcome: 00:06 Discharge ordered by . Grecia 00:24 Discharged to home via wheelchair. ao 00:24 Condition: stable 00:24 Discharge instructions given to patient, Instructed on discharge instructions, follow up and referral plans. Demonstrated understanding of instructions, follow-up care. 00:40 Patient left the ED. ao Signatures: Tim Shearer RN RN ao Loc [place] cf2 Kerwin Oquendo MD MD 7
[2019-09-04 00:46] VITALS: TEMP 97.1
[2019-09-04 00:54] VITALS: BP 178/86; O2SAT 98
== END 2019-09-04 00:40 | disposition home or self-care (01) ==
LOC: ER 22:05
DX: I10 Essential (primary) hypertension (principal); E11.9 Type 2 diabetes mellitus without complications; Z79.82 Long term (current) use of aspirin; Z99.2 Dependence on renal dialysis
CPT/HCPCS: 99284

== ENCOUNTER 2019-11-05 10:17 | Emergency (ER) | payer OTHER ==
[2019-11-05 11:00] LABS: Absolute Lymphocytes (CBC) 0.6 K/uL (0.7-4.9); Basophils % 0.6 % (0-1.3); Hematocrit 30.6 % (39.6-49.0); Lymphocytes % 3.4 % (15.3-44.8); RBC Red Blood Cell Count 3.64 M/uL (4.33-5.43)
--- NOTE | 2019-11-05 11:11 | RAD REPORT ---
EXAM DESCRIPTION: CT - Head Brain Wo Cont - 11/05/2019 10:58 am CLINICAL HISTORY: Alteration of awareness/confusion COMPARISON: 2019 TECHNIQUE: Computed axial tomography of the head was obtained. IV contrast was not requested. All CT scans are performed using dose optimization technique as appropriate and may include automated exposure control or mA/KV adjustment according to patient size. FINDINGS: An intracranial bleed is not seen . The ventricles are normal in caliber. No extra-axial fluid collection is noted. Mild low-density areas within periventricular, deep and subcortical white matter likely represent isc hemic changes secondary to small vessel disease. Fluid within the sinuses/ mastoids is not seen.Mild chronic maxillary sinusitis IMPRESSION: No acute intracranial abnormality is seen. If patient's symptoms persist MRI of the bra in would be recommended.
[2019-11-05 11:13] LABS: Potassium 5.2 mmol/L (3.5-5.1)
--- OUTSIDE RECORDS SUMMARY | 2019-11-05 11:13 | XMS REPORT | Clinical Summary ---
:1960 Author Organization [facility] Address [address] [place] [address] Care Team Providers Name Role Phone Tito Duval MD Primary Care Provider Allergies No Known Allergies Medications Medication Sig Dispensed Refills Start Date End Date Status glipiZIDE (GLUCOTROL) Take 10 mg by 0 Active 10 MG tablet mouth 2 (two) times a day before meals. spironolactone Take 25 mg by 0 A ctive (ALDACTONE) 25 MG mouth daily. tablet gabapentin (NEURONTIN) Take 300 mg by 0 Active 300 mg capsule mouth daily. doxycycline TAKE 1 CAPSULE 14 capsule 0 11/14/2018 11/21/2018 (VIBRAMYCIN) 100 MG BY MOUTH TWICE capsuleIndications: A DAY FOR 7 S/P CABG x 3 DAYS ciprofloxacin (CIPRO) Take 1 tablet 7 tablet 0 10/29/201803/2018 500 MG tablet (500 mg total) by mouth daily for 7 days. Active Problems Problem Noted Date CAD (coronary artery disease) 09/22/2018 Hypertension 09/22/2018 ESRD (end stage renal disease) on dialysis 09/22/2018 S/P CABG x 3 09/22/2018 Acute blood loss anemia 09/22/2018 Blind left eye 09/22/2018 Type 2 diabetes mellitus 09/22/2018 CAD in [place] artery 08/31/2018 Overview: Added automatically from request for jasmeet castaneda [id number] Encounters Date Type Specialty Care Team Description 05/24/2019 Documentation Transplant Shasta Tobias RN 05/23/2019 Documentation Transplant Lashell Cornejoa 05/22/2019 Documentation Transplant Alena Patel Committee R ju (MRB Packet 05/24/19 20 scanned in medi a. ) 05/22/2019 Documentation Transplant Shasta Tobias RN 05/21/2019 Documentation Transplant Alena Patel Kidney Eval (Cardio clearance 05/09 scanned in medi a. ) 05/10/2019 Lab Lab Sonal Trinidad, End sta ge renal disease ([facility]) (Primary Dx) 05/10/2019 Lab Lab Sonal Trinidad, ESRD (e nd stage renal MD disease) ([facility]) 05/10/2019 Office Visit Transplant Sonal Trinidad, Pre-tra nsplant evaluation for kidney AdrJatinder camarena, transpl ant (Primary Dx) 04/30/2019 Telephone Transplant Alena Patel Kidney f/u a ppts (16:17pm Sp w/p t deuce Raines re: janee y follow up scheduled on 05/10/19. Olu confirmed patie nts appts.) 04/04/2019 Orders Only Transplant Shasta Tobias RN ESRD (e nd stage renal disease) ([facility]) (Primary Dx) 01/24/2019 Telephone Transplant Antelmo Narayanan MA Kidney Evalu ation Status 11/07/2018 Refill Cardiovascular Alley Stinson PA 11/05/2018 Refill Cardiovascular Alley Stinson PA after 11/04/2018 Social History Tobacco Use Types Packs/Day Years [...] Comments Blood Pressure 166/80 05/10/2019 8:04 AM SEVERITY OF ILLNESS COORDINATOR Pulse 93 05/10/2019 8:04 AM SEVERITY OF ILLNESS COORDINATOR Temperature 35.7 C (96.2 F) 05/10/2019 8:02 AM SEVERITY OF ILLNESS COORDINATOR Respiratory Rate 18 05/10/2019 8:02 AM SEVERITY OF ILLNESS COORDINATOR Oxygen Saturation 99% 05/10/2019 8:02 AM SEVERITY OF ILLNESS COORDINATOR Inhaled Oxygen Concentration - - Weight 103 kg (227 lb 11.2 oz) 05/10/2019 8:02 AM SEVERITY OF ILLNESS COORDINATOR Height 180.3 cm (5' 11") 05/10/2019 8:02 AM SEVERITY OF ILLNESS COORDINATOR Body Mass Index 31.76 05/10/2019 8:02 AM SEVERITY OF ILLNESS COORDINATOR Plan of Treatment Health Maintenance Due Date Last Done Comments DIABETIC RETINAL EYE EXAM 1960 DIABETIC FOOT EXAM 11/11/1969 URINE MICROALBUMIN 11/11/1969 COLONOSCOPY SCREENING 11/11/2009 SHINGLES VACCINES (#1) 11/11/2009 INFLUENZA VACCINE 12/06/2019 Implants Implanted Type Area Office Executive Device Shelf Model / Identifier Expiration Serial / Date Lot Lead Pace Mycrdl Bipolar Coax Tmpry Streamline - [id number] Card iac Pacing N/A: [facility] [facility] - 05/16/2020 [id number] / Implanted: Qty: 1 on 09/22/2018 by Jacob Mustafa MD at [facility] Leads or N/A CARDIAC RYHTYM / Electrodes or MGMT Accessories Clip Ligtng Weck Hemoclip Plus W/ Tape Ti Med - [id number] Medic al Clips N/A: TELEFLEX 05/30/2023 [id number] / Implanted: Qty: 2 on 09/22/2018 by Jacob Mustafa MD at [facility] for Internal N/A MEDICAL / Use Clip Ligtng Weck Hemoclip Plus W/ Tape Ti Sm Strngpnt - [id number] Medical Clips N/A: WECK CLOSURE 05/16/2023 [id number] / Implanted: Qty: 2 on 09/22/2018 by Jacob Mustafa MD at [facility] for Internal N/A SYSTEMS / Use Clip Ligtng Weck Hemoclip Plus W/ Tape Ti Sm Strngpnt - [id number] Medical Clips N/A: WECK CLOSURE 06/17/2022 [id number] / Implanted: Qty: 1 on 09/22/2018 by Jacob Mustafa MD at [facility] for Internal N/A SYSTEMS / Use Clip Ligtng Weck Hemoclip Plus W/ Tape Ti Sm Strngpnt - [id number] Medical Clips N/A: WECK CLOSURE 06/17/2022 [id number] / Implanted: Qty: 1 on 09/22/2018 by Jacob Mustafa MD at [facility] for Internal N/A SYSTEMS / Use Material Bone Hmsts Wtrsolbl 2.5g Ostene - [id number] Orthopedic N/A: 01/04/2023 [id number] / Implanted: Qty: 1 on 09/22/2018 by Jacob Mustafa MD at [facility] Trauma N/A / Implants [id number] [place] Perph Vasclr Ptfe 1.2x10cm 1.65mm - [id number] Vascular Gra ft N/A: BARD PERIPHERAL 06/02/2023 [id number] / Implanted: Qty: 1 on 09/22/2018 by Jacob Mustafa MD at [facility] N/A VASCULAR / [id number] Procedures Procedure Name Priority Date/Time Associated Comments Diagnosis ESTIMATED GFR Routine 05/10/2019 8:10 Results fo r this AM SEVERITY OF ILLNESS COORDINATOR procedure are i n the results section. PARTIAL THROMBOPLASTIN Routine 05/10/2019 8:10 ESRD (end stag e Results for this TIME (PTT) AM SEVERITY OF ILLNESS COORDINATOR renal disease) procedure are in ([facility]) the results section. PROTHROMBIN TIME WITH Routine 05/10/2019 8:10 ESRD (end stage Results for this INR AM SEVERITY OF ILLNESS COORDINATOR renal disease) procedure are in ([facility]) the results section. HC COMPLETE BLD COUNT Routine 05/10/2019 8:10 ESRD (end stage Results for this W/AUTO DIFF AM SEVERITY OF ILLNESS COORDINATOR renal disease) procedure are in ([facility]) the results section. URINALYSIS SCREEN AND Routine 05/10/2019 8:10 ESRD (end stage Results for this MICROSCOPY, WITH REFLEX AM SEVERITY OF ILLNESS COORDINATOR renal disease) pr ocedure are in TO CULTURE ([facility]) the results section. COMPREHENSIVE METABOLIC Routine 05/10/2019 8:10 ESRD (end sta ge Results for this PANEL AM SEVERITY OF ILLNESS COORDINATOR renal disease) procedure are in ([facility]) the results section. URINE CULTURE Routine 05/10/2019 8:10 Results fo r this AM SEVERITY OF ILLNESS COORDINATOR procedure are i n the results section. OCCULT BLOOD, STOOL Routine 05/09/2019 3:35 End stage renal R esults for this PM SEVERITY OF ILLNESS COORDINATOR disease (HCC) procedure are in the results section. OCCULT BLOOD, STOOL Routine 05/08/2019 10:00 ESRD (end stage R esults for this AM SEVERITY OF ILLNESS COORDINATOR renal disease) procedure are in ([facility]) the results section. after 11/04/2018 Results Urinalysis screen and microscopy, with reflex to culture (05/10/2019 8:10 AM SEVERITY OF ILLNESS COORDINATOR) Specimen site Clean catch [facility] Color, UA Yellow [facility] Appearance, UA Clear [facility] Specific gravity, UA 1.014 1.001 - 1.035 [facility] pH, UA 6.0 5.0 - 8.5 [facility] Protein, UA 3+ (A) Negative [facility] Glucose, UA 3+ (A) Negative [facility] Ketones, UA Negative Negative [facility] Bilirubin, UA Negative Negative [facility] Blood, UA Negative Negative [facility] Nitrite, UA Negative Negative [facility] Urobilinogen, UA <2.0 <2.0 [facility] Leukocyte esterase, Negative Negative [facility] Round epithelial <1 0 - 1 /HPF [facility] cells, HOSPITAL WBC, UA 4 (H) 0 - 1 /HPF [facility] RBC, UA <1 0 - 5 /HPF [facility] Bacteria, UA Few None seen [facility] Yeast, UA None seen [facility] Yeast with None seen [facility] pseudohyphae, [facility] Specimen Urine Performing Organization Address City/[facility] Phone Number [facility] DEPARTMENT OF PATHOLOGY AND [address] [place] [address] [phone] [address] Estimated GFR (05/10/2019 8:10 AM SEVERITY OF ILLNESS COORDINATOR) Pathologist [facility] Estimated GFR 6 (A) mL/min/1.73 [facility] Comment: m2 HOSPITAL Catergory Units Interpretation G1 >=90 Normal [...] 2014. Specimen Plasma specimen Performing Organization Address City/[facility] Phone Number [facility] DEPARTMENT OF PATHOLOGY AND [address] [place], [place] [phone] [address] Partial thromboplastin time, activated (05/10/2019 8:10 AM SEVERITY OF ILLNESS COORDINATOR) [facility] PTT 32.8 23.0 - 36.0 [facility] Comment: [facility] PTT therapeutic range for unfractionated heparin is 61.0-112.0 seconds which corresponds to Anti-Xa 0.3-0.7 U/ml. Specimen Blood Performing Organization Address City/[facility]/Zipcode Phone Number [facility] DEPARTMENT OF PATHOLOGY AND [address] [place] [phone] Prothrombin time with INR (05/10/2019 8:10 AM SEVERITY OF ILLNESS COORDINATOR) [facility] Prothrombin time 14.2 11.5 - 14.5 [facility] INR 1.1 KERSHAW Comment: [facility] International Normalized Ratio (INR) is a therapeu [facility] monitoring tool for patients who are stable on oral anticoagulant therapy. An INR of 2.0-3.0 is suggested for deep vein thrombosis/pulmonary embolism. Specimen Blood Performing Organization Address City/[facility] Phone Number [facility] DEPARTMENT OF PATHOLOGY AND [address] [place] [phone] [place] [phone] CBC with platelet and differential (05/10/2019 8:10 AM SEVERITY OF ILLNESS COORDINATOR) [facility] WBC 10.29 4.50 - 11.00 [facility] k/uL [facility] RBC 4.73 4.40 - 6.00 [facility] HGB 15.0 14.0 - 18.0 [facility]/dL [facility] HCT 44.8 41.0 - 51.0 % [facility] MCV 94.7 82.0 - 100.[address] [facility] MCH 31.7 27.0 - 34.0 pg [facility] MCHC 33.5 31.0 - 37.0 [facility] RDW - SD 48.3 37.0 - 55.0 fL [facility] MPV 10.5 8.8 - 13.2 fL [facility] Platelet count 249 150 - 400 k/uL [facility] Nucleated RBC 0.00 /100 WBC [facility] Neutrophils 69.8 (H) 39.0 - 69.0 % [facility] Lymphocytes 13.3 (L) 25.0 - 45.0 % [facility] Monocytes 8.9 0.0 - 10.0 % [facility] Eosinophils 6.4 (H) 0.0 - 5.0 % [facility] Basophils 1.1 (H) 0.0 - 1.0 % [facility] Immature granulocytes 0.5Comment: 0.0 - 1.0 % [facility] "[facility] granulocytes" (promyelocytes , myelocytes, metamyelocytes ) Specimen Blood Performing Organization Address City/State/Zipcode Phone Number [facility] DEPARTMENT OF PATHOLOGY AND [address] [place] [address] [phone] [address] Urine culture (05/10/2019 8:10 AM SEVERITY OF ILLNESS COORDINATOR) Pathologist Sig nature Urine culture SEE COMMENTComment: [facility] Bacteriuria screen HOSPITAL negative. Specimen Performing Organization Address City/[facility] Phone Number [facility] DEPARTMENT OF PATHOLOGY AND [address] [place] [address] [phone] [address] Comprehensive metabolic panel (05/10/2019 8:10 AM SEVERITY OF ILLNESS COORDINATOR) Sodium 137 135 - 148 [facility] mEq/L [facility] Potassium 4.0 3.5 - 5.0 [facility] mEq/L [facility] Chloride 92 (L) 98 - 112 mEq/L [facility] CO2 24 24 - 31 mEq/L [facility] Anion gap 21@ANIO (H) 7 - 15 mEq/L [facility] BUN 56 (H) 6 - 20 mg/dL [facility] Creatinine 9.10 (H) 0.70 - 1.20 [facility] mg/dL HOSPITAL Glucose 204 (H) 65 - 99 mg/dL [facility] Calcium 9.2 8.3 - 10.2 [facility] mg/dL [facility] Protein 8.9 (H) 6.3 - 8.3 g/dL [facility] Comment: HOSPITAL Sfsoknu6889.6-7.0 g/dL 1 enyc1620.4-7.6 g/dL 7 months-9yzfb222.1-7.3 g/dL 1-2 .6-7.5 g/dL >3 uxvtf930.0-8.0 g/dL 18-7459159.3-8.3 g/dL Albumin 3.8 3.5 - 5.0 g/dL [facility] A/G ratio 0.7 0.7 - 3.8 [facility] Alkaline phosphatase 130 (H) 40 - 129 U/L [facility] AST 16 10 - 50 U/L [facility] ALT 15 5 - 50 U/L [facility] Total bilirubin 0.4 0.0 - 1.2 [facility] mg/dL HOSPITAL Specimen Plasma specimen Performing Organization Address City/[facility]/Zipcode Phone Number [facility] DEPARTMENT OF PATHOLOGY AND [address] [place], [place] [phone] [address] Occult blood, stool (05/09/2019 3:35 PM SEVERITY OF ILLNESS COORDINATOR)Only the most recent of2 results within the time period is included. Occult blood, Negative for occult blood. [facility] stool Comment: HOSPITAL Specimen Information Specimen Source: Stool Specimen Site: Nonpreserved Specimen Stool - Nonpreserved Performing Organization Address City/[facility] Phone Number [facility] DEPARTMENT OF PATHOLOGY AND [address] [place], [place] [phone] [address] after 11/04/2018 Insurance Payer Benefit Plan / Subscriber ID Effective Phone Address T ype Group Dates CIGNA CIGNA xxxxxxxxxxx 2019-[facility] ent MCR ADV MEDICARE MEDICARE PART A xxxxxxxxxxx 2019-[place], [place] Medicare AND B ent Advance Directives For more information, please contact: [phone] Type Date Recorded Patient Sales And Service Change Leader Explanati on Advance Directives, Living Will and Medical Power of Apprentice Plant Attendant
--- OUTSIDE RECORDS SUMMARY | 2019-11-05 11:15 | XMS REPORT | Clinical Summary ---
:1960 Author Organization [facility] Address [address] [place] [address] Care Team Providers Name Role Phone Tito Duval MD Primary Care Provider [phone] Bill Rosales Unavailable Allergies No Known Allergies Medications Medication Sig Dispensed Refills Start End Date Status Date amLODIPine Take 1 tablet (10 0 06/27/19 A ctive (NORVASC) 10 MG mg total) by mouth 0 21 tablet daily. spironolactone Take 1 tablet (25 0 0 Active (ALDACTONE) 25 MG mg total) by mouth 0 21 tablet daily. furosemide (LASIX) Take 1 tablet (40 0 Active 40 MG tablet mg total) by mouth 0 21 daily. gabapentin Take 1 capsule 0 06/27/19 Acti ve (NEURONTIN) 300 MG (300 mg total) by 0 21 capsule mouth daily. aspirin 81 MG Take 1 tablet (81 0 06/27/19 Active chewable tablet mg total) by mouth 0 21 daily. sevelamer Take 4 tablets 0 06/27/19 Activ e (RENVELA) 800 mg (3,200 mg total) 0 21 tablet by mouth 3 (three) times daily with meals. senna-docusate Take 2 tablets by 0 0 Active (SENOKOT S) 8.6-50 mouth nightly. 0 21 mg per tablet acetaminophen Take 500 mg by 0 A ctive (TYLENOL) 500 MG mouth every 6 tablet (six) hours as needed for Pain. glipiZIDE Take 10 mg by 0 Active (GLUCOTROL) 10 MG mouth 2 (two) tablet times daily before meals. insulin glargine Inject subcutaneously 2 (two) times daily 7 units in AM 0 Active (LANTUS SOLOSTAR 10 units in PM . U-100 INSULIN) 100 unit/mL (3 mL) InPn calcium carbonate Take 600 mg by 0 Active (OS-AMNA) 600 mg mouth 3 (three) calcium (1,500 mg) times daily with Tab meals. atorvastatin Take 40 mg by 0 Act tres (LIPITOR) 40 MG mouth daily. tablet carvediloL (COREG) Take 2 tablets (25 0 Active 12.5 MG tablet mg total) by mouth 0 21 2 (two) times daily. hydrALAZINE Take 2 tablets (50 0 10/23/19 Active (APRESOLINE) 25 MG mg total) by mouth 0 21 tablet 2 (two) times daily. levoFLOXacin Take 1 tablet (500 18 tablet 0 11/29/19 Active (LEVAQUIN) 500 MG mg total) by mouth 0 20 tablet every other day for 36 days. fluconazole Take 1 tablet (200 36 tablet 0 11/29/19 Active (DIFLUCAN) 200 MG mg total) by mouth 0 20 tablet daily for 36 days. carvediloL (COREG) Take 1 tablet 0 0 Discontinued 12.5 MG tablet (12.5 mg total) by 0 20 mouth 2 (two) times daily. hydrALAZINE Take 1 tablet (25 0 10/23/19 Discontinued (APRESOLINE) 25 MG mg total) by mouth 0 20 tablet 2 (two) times daily. sodium Apply topically 2 473 mL 0 07/04/19 Ex pired hypochlorite (two) times daily 0 20 (DAKIN'S, for 7 days. HALF-STRENGTH,) 0.25 % external solution mupirocin Apply 1 g 22 g 0 07/04/19 (BACTROBAN) 2 % topically daily 0 20 ointment for 7 days. traMADoL (ULTRAM) Take 1 tablet (50 30 tablet 0 05/0 04/26 50 mg tablet mg total) by mouth 0 20 every 6 (six) hours as needed for up to 10 days. Max Daily Amount: 200 mg HYDROcodone-acetam Take 1 tablet by 30 tablet 0 05/0 04/26 inophen (NORCO mouth every 6 0 20 10-325) 10-325 mg (six) hours as per tablet needed for up to 10 days. Max Daily Amount: 4 tablets amoxicillin-clavul Take 1 tablet by 6 tablet 0 04/2 10/24 anate (AUGMENTIN) mouth daily for 6 0 20 500-125 mg per days. tablet mINOCYCLine Take 1 capsule 12 capsule 0 07/03/19 Ex pired (MINOCIN,DYNACIN) (100 mg total) by 0 20 100 MG capsule mouth every 12 (twelve) hours for 6 days. polyethylene Take 34 g by mouth 14 each 0 06/30/19 glycol (GLYCOLAX) 2 (two) times 0 20 17 gram packet daily for 3 days. insulin detemir Inject 0.1 mLs (10 0 10/22 Discontinued U-100 (LEVEMIR) Units total) 0 20 100 unit/mL (3 mL) subcutaneously 2 InPn injection (two) times daily. Active Problems Problem Noted Date HTN (hypertension) 10/20/2019 Thrombophlebitis 10/20/2019 Status post transmetatarsal amputation of foot, right 10/18/2019 Status post skin graft using Integra wound dressing DM (diabetes mellitus) type II, controlled, with perip heral vascular 10/18/2019 disorder Non-healing wound of amputation stump 06/14/2019 Ischemia of foot 06/14/2019 CKD (chronic kidney disease) stage V requiring chronic dialysis 06/14/2019 Type 2 diabetes mellitus with diabetic peripheral you opathy and gangrene, 06/14/2019 with long-term current use of insulin PAD (peripheral artery disease) 06/14/2019 ESRD on hemodialysis Encounters Date Type Specialty Care Team Description 10/19/2019 Orders Only Cardiology Pattie Kimball 10/18/2019 Anesthesia Event Bassem Toro AA 10/18/2019 Surgery Star Mirza DEBRIDEMENT/I& D,WOUND A., DPM EXTREMITY LOWER 10/18/2019 - Hospital Encounter General Internal Star Mirza Stat post transmetatarsal amputation of foot, right (HCC) (Primary Dx); 10/23/2019 Medicine ABELL Stanley Gangrene of right foot ([facility]); Dickson Justice PAD (periphe ral artery disease) ([facility]); MD Kandy Status post ski n graft using Integra wound dressing; DM (diabetes me llitus) type II, controlled, with peripheral vascular disorder ([facility]); Type 2 diabetes mellitus with diabetic peripheral angiopathy and gangrene, with long-term current use of insulin ([facility]); Thrombophlebiti s; Non-healing wou nd of amputation stump ([facility]); Ischemia of clifton t; ESRD on hemodia lysis ([facility]); Essential hyper tension 10/18/2019 Travel 10/17/2019 Orders Only Danita Arora 10/12/2019 Hospital Encounter Pre-Admission Testing 10/12/2019 Travel 09/12/2019 Anesthesia Event Bassem Toro AA 09/12/2019 Hospital Encounter Pre-Admission Testing 09/12/2019 Orders Only Cardiology Duarte, Screening for v malena Fernando NP disease (Primar y Dx) 09/12/2019 Travel 09/10/2019 Hospital Encounter Pre-Admission Star Mirza Testing A., DPM 06/19/2019 Surgery Star Mirza AMPUTATION,TOE A., DPM 06/19/2019 Anesthesia Event Froylan Alvarez MD 06/19/2019 Orders Only General Internal Medicine 06/15/2019 Surgery Clark Danielle / MD Fela AORTOGRAM 06/14/2019 - Hospital Encounter Cardiology Pepper Gar Ischemia of foot; 06/27/2019 MD Keny Hx of CABG; Shanda, Type 2 diabetes mellitus with diabetic neuropathy, without long- term current use of insulin ([facility]); Shi Benign essentia l HTN; MD Jeremy ESRD on dialysis ([facility]); Marko Mcdaniel PAD (periphe ral artery disease) ([facility]); Gangrene of rig ht foot ([facility]); Status post amp utation of lesser toe, right ([facility]); Type 2 diabetes mellitus with diabetic peripheral angiopathy and gangrene, with long-term current use of insulin (HCC); History of blackwell smetatarsal amputation of right foot (HCC) 06/14/2019 Travel after 11/04/2018 Family History Medical History Relation Name Comments Diabetes Father Diabetes Mother Relation Name Status Comments Father Mother Social History Tobacco Use Types Packs/Day Years Used Date Former Smoker Smokeless Tobacco: Never Used Tobacco Cessation: Counseling Given: Yes Comments: stopped years ago Alcohol Use Drinks/Week oz/Week Comments No Alcohol [...] Vital Sign Reading Time Taken Blood Pressure 136/65 10/23/2019 10:53 AM CDT Pulse 68 10/23/2019 10:53 AM CDT Temperature 36.4 C (97.6 F) 10/23/2019 10:53 AM CDT Respiratory Rate 18 10/23/2019 10:53 AM CDT Oxygen Saturation 97% 10/23/2019 10:53 AM CDT Inhaled Oxygen Concentration - - Weight 110 kg (242 lb 8.1 oz) 10/22/2019 8:48 AM CDT Height 185.4 cm (6' 1") 10/18/2019 7:20 AM CDT Body Mass Index 31.99 10/22/2019 8:48 AM CDT Plan of Treatment Not on file Implants Implanted Type Area Case Filler Device Shelf Model / Identifier Expiration Serial / Date Lot Pwdr Cellerate Rx 5mg Surgical [id number] - [id number] IMPLANT S Right: WOUND CARE 09/03/2021 [id number] / Implanted: Qty: 1 on 06/19/2019 by Star Mirza DPM [employer] / [id number] Decellurized Dermis Dermacealycia Michel Right: LIFENET CODE [id number] / Implanted: Qty: 1 on 10/18/2019 by Star Mirza DPM [place] t / Cellerate Activated Collagen Right: WOUND CARE [id number] / Implanted: Qty: 1 on 10/18/2019 by Star Mirza DPM [employer] / Procedures Procedure Name Priority Date/Time Associated Comments Diagnosis RHYTHM STRIP - SCAN 10/24/2019 11:34 AM CDT POCT-GLUCOSE METER Routine 10/23/2019 10:56 Resul ts for this AM CDT procedure are i n the results section. POCT-GLUCOSE METER Routine 10/23/2019 7:40 Resul ts for this AM CDT procedure are i n the results section. POCT-GLUCOSE METER Routine 10/22/2019 8:55 Resul ts for this PM CDT procedure are i n the results section. POCT-GLUCOSE METER Routine 10/22/2019 2:46 Resul ts for this PM CDT procedure are i n the results section. BASIC METABOLIC PANEL Routine 10/22/2019 8:59 Re sults for this (7) AM CDT procedure are i n the results section. POCT-GLUCOSE METER Routine 10/22/2019 7:53 Resul ts for this AM CDT procedure are i n the results section. POCT-GLUCOSE METER Routine 10/21/2019 9:06 Resul ts for this PM CDT procedure are i n the results section. POCT-GLUCOSE METER Routine 10/21/2019 3:35 Resul ts for this PM CDT procedure are i n the results section. POCT-GLUCOSE METER Routine 10/21/2019 11:58 Resul ts for this AM CDT procedure are i n the results section. POCT-GLUCOSE METER Routine 10/21/2019 7:39 Resul ts for this AM CDT procedure are i n the results section. CBC W/PLT COUNT & Routine 10/21/2019 5:12 Result s for this AUTO DIFFERENTIAL AM CDT procedure are in the results section. BASIC METABOLIC PANEL Routine 10/21/2019 5:12 Re sults for this (7) AM CDT procedure are i n the results section. CBC W/PLT COUNT & Routine 10/21/2019 5:12 Result s for this AUTO DIFFERENTIAL AM CDT procedure are in the results section. POCT-GLUCOSE METER Routine 10/20/2019 8:50 Resul ts for this PM CDT procedure are i n the results section. POCT-GLUCOSE METER Routine 10/20/2019 5:19 Resul ts for this PM CDT procedure are i n the results section. HEMODIALYSIS Routine 10/20/2019 2:26 INPATIENT PM CDT POCT-GLUCOSE METER Routine 10/20/2019 11:31 Resul ts for this AM CDT procedure are i n the results section. HEPATITIS B SURFACE STAT 10/20/2019 10:35 Resu lts for this ANTIGEN AM CDT procedure are i n the results section. POCT-GLUCOSE METER Routine 10/20/2019 7:34 Resul ts for this AM CDT procedure are i n the results section. POCT-GLUCOSE METER Routine 10/19/2019 9:26 Resul ts for this PM CDT procedure are i n the results section. TRANSFUSION SERVICE 10/19/2019 6:01 REPORT - SCAN PM CDT POCT-GLUCOSE METER Routine 10/19/2019 4:28 Resul ts for this PM CDT procedure are i n the results section. POCT-GLUCOSE METER Routine 10/19/2019 8:21 Resul ts for this AM CDT procedure are i n the results section. POCT-GLUCOSE METER Routine 10/18/2019 5:44 Resul ts for this PM CDT procedure are i n the results section. HGB/HCT (H&H) - STAT STAT 10/18/2019 5:12 Res ults for this LAB PM CDT procedure are i n the results section. GLUCOSE-STAT LAB STAT 10/18/2019 5:12 Results for this PM CDT procedure are i n the results section. POTASSIUM-STAT LAB STAT 10/18/2019 5:12 Resul ts for this PM CDT procedure are i n the results section. SODIUM NA-STAT LAB STAT 10/18/2019 5:12 Resul ts for this PM CDT procedure are i n the results section. BLOOD GAS, ARTERIAL STAT 10/18/2019 5:12 Resu lts for this PM CDT procedure are i n the results section. CALCIUM, IONIZED STAT 10/18/2019 5:12 Results for this PM CDT procedure are i n the results section. RRL CRITICAL LABS STAT 10/18/2019 5:12 Result s for this (ABG,NA,K,H&H,GLUCOSE PM CDT proced ure are in ) the results section. SURGICALLY OBTAINED CARMEN 10/18/2019 4:23 Resu lts for this CULTURE + GRAM STAIN PM CDT procedu re are in the results section. ANAEROBIC CULTURE Routine 10/18/2019 4:23 Result s for this PM CDT procedure are i n the results section. SURGICALLY OBTAINED CARMEN 10/18/2019 4:21 Resu lts for this CULTURE + GRAM STAIN PM CDT procedu re are in the results section. ANAEROBIC CULTURE CARMEN 10/18/2019 4:21 Result s for this PM CDT procedure are i n the results section. HGB/HCT (H&H) - STAT STAT 10/18/2019 3:52 Res ults for this LAB PM CDT procedure are i n the results section. GLUCOSE-STAT LAB STAT 10/18/2019 3:52 Results for this PM CDT procedure are i n the results section. POTASSIUM-STAT LAB STAT 10/18/2019 3:52 Resul ts for this PM CDT procedure are i n the results section. SODIUM NA-STAT LAB STAT 10/18/2019 3:52 Resul ts for this PM CDT procedure are i n the results section. BLOOD GAS, ARTERIAL STAT 10/18/2019 3:52 Resu lts for this PM CDT procedure are i n the results section. CALCIUM, IONIZED STAT 10/18/2019 3:52 Results for this PM CDT procedure are i n the results section. RRL CRITICAL LABS STAT 10/18/2019 3:52 Result s for this (ABG,NA,K,H&H,GLUCOSE PM CDT proced ure are in ) the results section. HGB/HCT (H&H) - STAT STAT 10/18/2019 3:05 Res ults for this LAB PM CDT procedure are i n the results section. GLUCOSE-STAT LAB STAT 10/18/2019 3:05 Results for this PM CDT procedure are i n the results section. POTASSIUM-STAT LAB STAT 10/18/2019 3:05 Resul ts for this PM CDT procedure are i n the results section. SODIUM NA-STAT LAB STAT 10/18/2019 3:05 Resul ts for this PM CDT procedure are i n the results section. BLOOD GAS, ARTERIAL STAT 10/18/2019 3:05 Resu lts for this PM CDT procedure are i n the results section. CALCIUM, IONIZED STAT 10/18/2019 3:05 Results for this PM CDT procedure are i n the results section. RRL CRITICAL LABS STAT 10/18/2019 3:05 Result s for this (ABG,NA,K,H&H,GLUCOSE PM CDT proced ure are in ) the results section. SKIN GRAFT,SKIN 10/18/2019 2:00 Non-healing SUBSTITUTE PM CDT surgical wound, initial encounter PLACEMENT,WOUND VAC 10/18/2019 2:00 Non-healing PM CDT surgical wound, initial encounter AMPUTATION,FOOT 10/18/2019 2:00 Non-healing PM CDT surgical wound, initial encounter OSTECTOMY,FOOT/ TOE 10/18/2019 2:00 Non-healing PM CDT surgical wound, initial encounter DEBRIDEMENT/I&D,WOUND 10/18/2019 2:00 Non-healing EXTREMITY LOWER PM CDT surgical wound, initial encounter TYPE AND SCREEN, Routine 10/18/2019 7:59 Results for this AUTOMATED AM CDT procedure are i n the results section. PLATELET COUNT Routine 10/18/2019 7:59 Results f or this AM CDT procedure are i n the results section. HEMOGLOBIN Routine 10/18/2019 7:59 Results for this AM CDT procedure are i n the results section. GLUCOSE Routine 10/18/2019 7:58 Results for this AM CDT procedure are i n the results section. BUN AND CREATININE Routine 10/18/2019 7:58 Resul ts for this W/RATIO AM CDT procedure are i n the results section. ELECTROLYTE PANEL Routine 10/18/2019 7:58 Result s for this AM CDT procedure are i n the results section. SARS-COV2/RT-PCR STAT 10/18/2019 7:41 Results for this ([facility] REF LABS) AM CDT procedure are in the results section. POCT-GLUCOSE METER Routine 10/18/2019 6:14 Resul ts for this AM CDT procedure are i n the results section. HEMOGLOBIN Routine 09/10/2019 9:20 Results for this AM CDT procedure are i n the results section. GLUCOSE Routine 09/10/2019 9:20 Results for this AM CDT procedure are i n the results section. ELECTROLYTE PANEL Routine 09/10/2019 9:20 Result s for this AM CDT procedure are i n the results section. BUN AND CREATININE Routine 09/10/2019 9:20 Resul ts for this W/RATIO AM CDT procedure are i n the results section. RHYTHM STRIP - SCAN 07/04/2019 12:40 PM CDT TRANSFUSION SERVICE 06/29/2019 6:00 REPORT - SCAN PM CDT RHYTHM STRIP - SCAN 06/29/2019 9:01 AM CDT REPORT OF PROCEDURE - 06/29/2019 9:01 ENDOSCOPY SCAN AM CDT CARDIAC CATH REPORT - 06/29/2019 9:01 SCAN AM CDT PREPARE LEUKO-REDUCED CARMEN 06/28/2019 11:54 Re sults for this RBC [...] AM CDT BLOOD CELLS TYPE AND SCREEN, [facility] 06/27/2019 8:45 Results for this AUTOMATED [...] 446 ms QTC Calculation(Bazett) 471 ms P [place] 29 degrees R [place] -24 degrees T [place] 38 degrees Normal sinus rhythm Possible Anterior [...] i n the results section . after 11/04/2018 Results RHYTHM STRIP - SCAN (10/24/2019 11:34 AM CDT)Only the most recent of3 results within the time period is included. Narrative Performed At This result has an attachment that is no t available. POC-Glucose meter (10/23/2019 10:56 AM CDT)Only the most recent of77 results within the time period is included. POC-Glucose Meter 136 (H)Comment: : TESTED 70 - 110 mg/dL [facility] AT [address], [address]: [place] Screen Measurer And Trimmer/Parking Inspector ID = [id number] for YUNIOR GIVENS Specimen Blood Performing Organization Address City/[facility]/Zipcode Phone Number [address] [address] [place] Basic metabolic panel (10/22/2019 8:59 AM CDT)Only the most recent of16 results within the time period is included. Sodium 137 136 - 145 meq/L [facility] Potassium 4.8 3.5 - 5.1 meq/L [facility] Chloride 98 98 - 107 meq/L [facility] CO2 22 22 - 29 meq/L [facility] BUN 69 (H) 7 - 21 mg/dL [facility] Creatinine 10.34 (H) 0.57 - 1.25 mg/dL [facility] Glucose 92 70 - 105 mg/dL [facility] Calcium 8.0 (L) 8.4 - 10.2 mg/dL [facility] EGFR 5Comment: ESTIMATED GFR IS mL/min/1.73 sq m [facility] NOT ACCURATE CREATININE [facility] CLEARANCE IN PREDICTING GLOMERULAR FILTRATION RATE. ESTIMATED GFR IS NOT APPLICABLE FOR DIALYSIS PATIENTS. Specimen Blood Narrative Performed At [facility] [employer] Trimmer ID - [id number] [facility] Performing Organization Address City/[facility]/Zipcode Phone Number [address] [address] [place] CBC with platelet count + automated diff (10/21/2019 5:12 AM CDT)Only the most recent of15 resultswithin the time period is included. WBC 8.6 3.5 - 10.5 K/L [facility] RBC 3.95 (L) 4.63 - 6.08 M/L [facility] Hemoglobin 10.6 (L) 13.7 - 17.5 GM/DL [facility] Hematocrit 34.3 (L) 40.1 - 51.0 % [facility] MCV 86.8 79.0 - 92.[address] [facility] MCH 26.8 25.7 - 32.2 pg [facility] MCHC 30.9 (L) 32.3 - 36.5 GM/DL [facility] RDW 17.3 (H) 11.6 - 14.4 % [facility] Platelets 287 150 - 450 K/CU MM [facility] MPV 9.6 9.4 - 12.4 fL [facility] nRBC 0 0 - 0 /100 WBC [facility] % Neutros 70 % [facility] % Lymphs 14 % [facility] % Monos 9 % [facility] % Eos 6 % [facility] % Baso 1 % [facility] # Neutros 5.97 (H) 1.78 - 5.38 K/L [facility] # Lymphs 1.21 (L) 1.32 - 3.57 K/L [facility] # Monos 0.76 0.30 - 0.82 K/L [facility] # Eos 0.51 0.04 - 0.54 K/L [facility] # Baso 0.07 0.01 - 0.08 K/L [facility] Immature Granulocytes-Relative 0 0 - 1 % C [facility] Specimen Blood Performing Organization Address [facility] Phone Number [address] [address] [place] Hepatitis B surface antigen (10/20/2019 10:35 AM CDT)Only the most recent of2 resultswithin the time period is included. HBsAg Screen Nonreactive Nonreactive [facility] Specimen Blood Narrative Performed At Specimen is considered negative for HBsAg. [facility] Performing Organization Address [facility] Cent[facility]ode Phone Number [address] [address] [place] TRANSFUSION SERVICE REPORT - SCAN (10/19/2019 6:01 PM CDT)Only the most recent of4 resultswithin the time period is included. Narrative Performed At This result has an attachment that is no t available. Potassium-Stat Lab (10/18/2019 5:12 PM CDT)Only the most recent of3 results within the time period is included. Potassium 4.3 3.6 - 5.5 meq/L [facility] Specimen Blood, Arterial Performing Organization Address [facility] Phone Number [address] [address] [place] Sodium Na-Stat Lab (10/18/2019 5:12 PM CDT)Only the most recent of3 results within the time period is included. Sodium 134 (L) 136 - 145 meq/L [facility] Specimen Blood, Arterial Performing Organization Address City/[facility] Cent[facility]ode Phone Number [address] [address] [place] Glucose-Stat Lab (10/18/2019 5:12 PM CDT)Only the most recent of3 resultswithin the time period is included. Glucose 92 70 - 110 mg/dL [facility] Specimen Blood, Arterial Performing Organization Address City/[facility]/Zipcode Phone Number [facility] [address] [place] [address] [place] HGB/HCT (H&H)-Stat Lab (10/18/2019 5:12 PM CDT)Only the most recent of3 resultswithin the time period is included. Hemoglobin 11.4 (L) 13.0 - 16.8 g/dL [facility] Hematocrit 34.0 (L) 40.0 - 50.0 % [facility] Specimen Blood, Arterial Performing Organization Address [facility]/Zipcode Phone Number [address] [address] [place] Calcium, Ionized (10/18/2019 5:12 PM CDT)Only the most recent of3 resultswithin the time period is included. Calcium, Ion 1.22 1.12 - 1.27 mmol/L [facility] pH, Blood 7.30 [facility] Specimen Blood Performing Organization Address City/[facility]/Zipcode Phone Number [address] [address] [place] Blood gas, arterial (10/18/2019 5:12 PM CDT)Only the most recent of3 results within the time period is included. pH, Arterial 7.32 (L) 7.35 - 7.45 [facility] pCO2, Arterial 55 (H) 35 - 45 mmHg [facility] pO2, Arterial 230 (H) 80 - 90 mmHg [facility] O2 Sat, Arterial 99.4 (H) 96.0 - 97.0 % [facility] HCO3, Arterial 28 21 - 29 mmol/L [facility] Base Excess, Arterial 0.7 -2.0 - 3.0 mmol/L [facility] Patient Temperature 36.0 C [facility] FIO2 90.0 % [facility] Specimen Blood, Arterial Performing Organization Address City/State/Zipcode Phone Number [facility] [address] [place] [address] [place] Anaerobic culture (10/18/2019 4:23 PM CDT)Only the most recent of3 results within the time period is included. Result 2+ Cutibacterium acnes (A) [facility] Specimen Tissue Performing Organization Address City/State/Zipcode Phone Number [facility] [address] [place] [address] [place] Surgically obtained culture + gram stain (10/18/2019 4:23 PM CDT)Only the most recent of3 resultswithin the time period is included. Result 3+ Enterobacter cloacae [facility] () [facility] Result 2+ Ciarra parapsilosis (A) [facility] Gram Stain Result 1+ WBCs [facility] Gram Stain Result 1+ gram negative rods [facility] Gram Stain Result <1+ gram positive rods [facility] Gram Stain Result 2+ gram positive cocci in [facility] pairs [facility] Gram Stain Result 1+ gram positive cocci in [facility] clusters [facility] Gram Stain Result 1+ yeast [facility] Specimen Tissue Narrative Performed At 3+ Skin lake consisting of Coagulase [facility] Negative Staphylococcus and Diphtheroid species. Organism Antibiotic Method Susceptibility Enterobacter cloacae Amikacin <=2: Suscep tible complex Enterobacter cloacae Aztreonam <=1: Suscep tible complex Enterobacter cloacae Cefepime <=1: Suscep tible complex Enterobacter cloacae Cefoxitin >=64: Resis tant complex Enterobacter cloacae Ceftazidime <=1: Suscep tible complex Enterobacter cloacae Ceftriaxone <=1: Suscep tible complex Enterobacter cloacae Ertapenem <=0.5: Susc eptible complex Enterobacter cloacae Gentamicin <=1: Suscep tible complex Enterobacter cloacae Levofloxacin <=0.12: Josefa ceptible complex Enterobacter cloacae Meropenem <=0.25: Josefa ceptible complex Enterobacter cloacae Tetracycline <=1: Suscep tible complex Enterobacter cloacae Tobramycin <=1: Suscep tible complex Enterobacter cloacae Trimethoprim + Sulfamethoxazole <=20: Susceptible complex Performing Organization Address [facility] Cent[facility]ode Phone Number [address] [address] CENTER Type and screen, automated (10/18/2019 7:59 AM CDT)Only the most recent of3 resultswithin the time period is included. ABO/RH AUTOMATED (BEAKER) O POSITIVE [facility] Ab Scrn NEGATIVE [facility] Specimen Blood Performing Organization Address [facility] Phone Number [address] [address] Platelet count (10/18/2019 7:59 AM CDT) Platelets 259 150 - 450 K/CU MM [facility] Specimen Blood Narrative Performed At Shearer Screen Measurer And Trimmer ID - [id number] [facility] Performing Organization Address [facility] Phone Number [address] [address] CENTER Hemoglobin (10/18/2019 7:59 AM CDT)Only the most recent of2 resultswithin the time period is included. Hemoglobin 11.1 (L) 13.7 - 17.5 GM/DL [facility] Specimen Blood Narrative Performed At Shearer Screen Measurer And Trimmer ID - [id number] [facility] Performing Organization Address [facility] Phone Number [address] [address] CENTER BUN and Creatinine (10/18/2019 7:58 AM CDT)Only the most recent of2 results within the time period is included. BUN 58 (H) 7 - 21 mg/dL [facility] ER Creatinine 7.72 (H) 0.57 - 1.25 mg/dL [facility] BUN/Creatinine ratio 8Comment: Unable to [facility] calculate due to [facility] non-numeric results EGFR 7Comment: ESTIMATED GFR mL/min/1.73 sq m [facility] IS NOT ACCURATE [facility] CREATININE CLEARANCE IN PREDICTING GLOMERULAR FILTRATION RATE. ESTIMATED GFR IS NOT APPLICABLE FOR DIALYSIS PATIENTS. Specimen Blood Narrative Performed At Shearer Screen Measurer And Trimmer ID - [facility] Performing Organization Address [facility] Centercode Phone Number [address] [phone] CENTER Glucose (10/18/2019 7:58 AM CDT)Only the most recent of2 resultswithin the time period is included. Glucose 157 (H) 70 - 105 mg/dL [facility] Specimen Blood Narrative Performed At Shearer Screen Measurer And Trimmer ID - [facility] Performing Organization Address [facility] Centerconh Phone Number [address] [phone] CENTER Electrolytes (10/18/2019 7:58 AM CDT)Only the most recent of2 resultswithin the time period is included. Sodium 137 136 - 145 meq/L [facility] Potassium 5.1 3.5 - 5.1 meq/L [facility] Chloride 100 98 - 107 meq/L [facility] CO2 23 22 - 29 meq/L [facility] Specimen Blood Narrative Performed At Shearer [employer] Measurer And Trimmer ID - ROSIANG [facility] Performing Organization Address City/State/Zipcode Phone Number [facility] MEDICAL [address] [place] [address] CENTER SARS-CoV2/RT-PCR (Asymptomatic ONLY) (10/18/2019 7:41 AM CDT) SARS-COV2/RT-PCR Negative Not Detected, Negative, [facility] See external report for MEDICAL CENTER linked test SARS-COV-2 PERFORMING LAB [facility] Specimen Other Narrative Performed At Negative results do not preclude SARS-CoV-2 [facility] infection and should not be used as the sole basis for patient management decisions. Negative results must be combined with clinical observations, patient history, and epidemiological information. A false negative result may occur if a specimen is improperly collected, transported or handled. The limit of detection for this assay is 250 copies/mL. This SARS CoV-2 test is a rapid, real-time RT-PCR test intended for the qualitative detection of nucleic acid from SARS-CoV-2 in a nasopharyngeal swab specimen collected from individuals suspected of COVID-19 by their healthcare provider. This test has not been Food and Drug Administration (FDA) cleared or approved and has been authorized by FDA under an Emergency Use Authorization (EUA). This EUA will be effective until the declaration that circumstances exist justifying the authorization of the emergency use of in vitro diagnostic tests for detection and/or diagnosis of COVID-19 is terminated under Section 564(b)(2) of the Act or the EUA is revoked under Section 564(g) of the Act. Fact Sheet for Healthcare Providers: https://www.Futurefleet/Documents/Xpert%20Xpre ss%20SARS%20CoV-2/Fact%20Sheets/509-7829%20SAR S-COV-2%20HEALTHCARE%20PROVIDERS%20FACT%20SHEE T.pdf Fact Sheet for Healthcare Patients: https://www.Futurefleet/Documents/Xpert%20Xpre ss%20SARS%20CoV-2/Fact%20Sheets/859-3801%20SAR S-COV-2%20PATIENT%20FACT%20SHEET.pdf Performing Laboratory: [facility] [address] [facility] [place] [place] [address] Performing Organization Address City/State/Zipcode Phone Number [facility] MEDICAL [address] [place] [address] CENTER EKG-SCANNED (06/29/2019 9:01 AM CDT) Narrative Performed At This result has an attachment that is no t available. CARDIAC CATH REPORT - SCAN (06/29/2019 9:01 AM CDT) Narrative Performed At This result has an attachment that is no t available. Prepare Leuko-Red RBC (06/28/2019 11:54 PM CDT) CROSSMATCH COMPATIBLE [place] Unit ABO O Pos [facility] UNIT NUMBER [id number] [place] Status TX_TIMEINCHART [facility] Blood Bank Product RED BLOOD CELLS [place] PRODUCT CODE [id number] [place] Specimen Other Performing Organization Address City/State/Zipcode Phone Number [place] HEMODIALYSIS INPATIENT (06/27/2019 11:56 AM CDT) Narrative [...] recent of2 resultswithin the time period is included.Phosphorus (06/27/2019 3:39 AM CDT) Only the most recent of14 resultswithin the time period is included. Phosphorus 6.1 (H) 2.3 - 4.7 mg/dL [facility] Specimen Blood Narrative Performed At Shearer Screen Measurer And Trimmer [facility] Performing Organization Address City/[facility]/Zipcode Phone Number [address] [address] CENTER Magnesium (06/27/2019 3:39 AM CDT)Only the most recent of14 resultswithin the time period is included. Magnesium 2.5 1.6 - 2.6 mg/dL [facility] Specimen Blood Narrative Performed At [facility] Measurer And Trimmer [facility] Laisha [facility] Performing Organization Address City/[facility]/Zipcode Phone Number [address] [address] CENTER HEMODIALYSIS INPATIENT (06/25/2019 8:18 AM [...] period is included. Vancomycin Rm 15.8 ug/mL [facility] Specimen Blood Narrative Performed At Reference Range: No Normals [facility] Shearer Screen Measurer And Trimmer ID - LM Performing Organization Address City/State/Zipcode Phone Number [facility] [address] [place] [address] CENTER HEMODIALYSIS INPATIENT (06/22/2019 12:02 [...] Specimen Narrative Performed At FINAL REPORT GE [facility] CLINICAL HISTORY: Postop transmetatarsal amputation COMPARISON: 06/14/2019 [...] 2:40:02 Performing Organization Address City/State/Zipcode Phone Number [facility] Tissue Exam (06/19/2019 11:18 AM CDT) Case Report Surgical Pathology Report Case: [id number] [facility] Authorizing Provider:Star Holt DPollected: 06/19/2019 11:18 AM [facility] Ordering Location: [facility] PERIOPERATIVE Received:06/19/2019 11:51 AM SERVICES Pathologist: Jonathan Hutchison MD Specimen:Foot, Right , right forefoot DIAGNOSIS PART A RIGHT FOOT, TRANSMETATARSAL AMPUTATION: [facility] GANGRENOUS NECROSIS OF SKIN AND SOFT TISSUE. [facility] UNDERLYING ACUTE AND CHRONIC OSTEOMYELITIS. STATUS POST PRIOR AMPUTATION. BONE AND SOFT TISSUE MARGINS ARE INVOLVED. Signing Pathologist Direct Phone Line: CPT Code(s) 48840, 38148 [facility] CLINICAL HISTORY Preop diagnosis: Gangrene, [facility] nonhealing wound of right [facility] heel SPECIMEN SOURCE A. Right foot [facility] GROSS DESCRIPTION Received in formalin labeled with the patient's name, accession number and "right foot" is a 9.5 x 9.0 x 3.0 cm transmetatarsal amputation displaying digits 1, 4 and 5. The skin is gardner-pink and displays [facility] a 5.0 x 4.5 cm green-black ulcerated lesion at the previous site of amputation that is involving the entire 4th digit, and is abutting the skin and soft tissue margin (inked blue). The underlying affec [facility] doris bone is red-pink, trabec ulated and firm. All three digits display gardner- yellow thickened nails. Architectural Administrative Assistant sections are submitted as follows: Section code: A1, skin and soft tissue margin en face A2, previous site of amputation A3, skin lesion and underlying affected bone fol lowing decalcification A4-A5, bone margin en face following decalcifica tion PA/pl MICROSCOPIC DESCRIPTION PERFORMED. [facility] Gross assessment was [facility] performed at [place], Department of [facility] Pathology, [address] [place] [phone], Technical component was [facility] performed at [place], Department [facility] Pathology, [address] [place] [phone], Professional component [facility] was performed at [place], Department of [facility] Pathology, [address] [place] [phone], Specimen Tissue Performing Organization Address [facility] Centercode Phone Number [address] [address] [place] [employer] culture + smear (non-sputum) (06/19/2019 9:50 AM CDT) Result No acid-fast bacilli isolated in [facility] 42 days CENTER [employer]B Smear No acid fast bacilli seen [facility] Specimen Wound Performing Organization Address [facility] Centercode Phone Number [address] [address] [place] Fungus culture + smear (06/19/2019 9:50 AM CDT) Result No fungus isolated in [address] [facility] Fungus Smear No fungal elements seen [facility] Specimen Wound Performing Organization Address [facility] Centercode Phone Number [address] [address] [place] SPIN/CONCENTRATION CHARGE (06/19/2019 9:50 AM CDT) Concentration charged Done [facility] Specimen Wound Performing Organization Address [facility] Centerconh Phone Number [address] [address] [place] ECG 12 lead (06/19/2019 7:28 AM CDT) Specimen Narrative Performed At Ventricular Rate 67 BPM GE MUSE Atrial Rate 67 BPM P-R Interval 140 ms QRS Duration 88 ms Q-T Interval 446 ms QTC Calculation(Bazett) 471 ms P [place] 29 degrees R [place] -24 degrees T [place] 38 degrees Normal sinus rhythm Poor R wave progression Cannot rule out Possible Anter ior infarct , age undetermined Prolonged QT Abnormal ECG No previous ECGs available Confirmed by Stella GOMEZ BASANT ([id number]) on 06/19/2019 6: 07:01 PM Procedure Note Interface, External Ris In - 06/19/2019 6:07 PM CDT Ventricular Rate 67 BPM Atrial Rate 67 BPM P-R Interval 140 ms QRS Duration 88 ms Q-T Interval 446 ms QTC Calculation(Bazett) 471 ms P [place] 29 degrees R [place] -24 degrees T [place] 38 degrees Normal sinus rhythm Poor R wave progression Cannot rule out Possible Anterior infarct , age undetermined Prolonged QT Abnormal ECG No previous ECGs available Confirmed by Stella GOMEZ BASANT ([id number]) o n 06/19/2019 6:07:01 PM Performing Organization Address City/State/Zipcode Phone Number GE MUSE Vancomycin level, trough (06/18/2019 3:48 AM CDT) Vancomycin Tr 25.9 (H) 10.0 - 20.0 ug/mL [facility] Specimen Blood Narrative Performed At Shearer Screen Measurer And Trimmer SAVANNA - JAQUELINE Interiano [facility]ENTER Performing Organization Address City/State/Zipcode Phone Number [facility] [address] [place] [address] CENTER Manual Differential (06/16/2019 4:49 AM CDT) % Neutros 78 % [facility] % Lymphs 4 % [facility] CENTER % Monos 10 % [facility] % Baso 1 % [facility] % Metamyelo 1 (H) 0 - 0 % [facility] CENTER % Bands 6 0 - 10 % [facility] CENTER # Neutros 12.95 (H) 1.78 - 5.38 K/ul [facility] # Lymphs 0.66 (L) 1.32 - 3.57 K/ul [facility] # Monos 1.66 (H) 0.30 - 0.82 K/uL [facility] # Baso 0.17 (H) 0.01 - 0.08 K/uL [facility] # Metamyelo 0.17 (H) 0.00 - 0.00 K/uL [facility] # Bands 1.00 (H) 0.00 - 0.80 K/uL [facility] Total Counted 100 [facility] WBC Morphology Normal [facility] Platelet Morphology Normal [facility] Polychromasia 1+ few [facility] Artifact Present [facility] Platelet Conc Adequate [facility] Specimen Blood Narrative Performed At Shearer Screen Measurer And Trimmer ID - Roseanne Overholt [facility] User comments: Slide comments: Performing Organization Address City/State/Zipcode Phone Number [address] [address] CENTER PERIPHERAL VASCULAR REPORT - SCAN (06/15/2019 9:11 PM CDT) Narrative Performed At This result has an attachment that is no t available. POC ACTIVATED CLOTTING TIME (06/15/2019 12:21 PM CDT) Activated Clotting Time 241Comment: : 74-137 sec [facility] seconds, Baseline: TESTED [facility] AT [address], [id number]: Shearer Screen Measurer And Trimmer/Parking Inspector ID = [id number] for CRYSTAL NICHOLE Specimen Blood Performing Organization Address City/[facility] Centercode Phone Number [address] [address] CENTER ABORH, manual (06/15/2019 9:53 AM CDT) ABO Grouping O [facility] Rh Factor POS [facility] Specimen Blood Performing Organization Address City/[facility]/Zipcode Phone Number [address] [address] XR foot 3 views right (06/14/2019 1:57 [...] MD Report Verified Date/Time:06/14/2019 15:36:18 Reading Location: [facility] C013X [facility] Reading Room Procedure Note Interface, External Ris [...] Verified Date/Time: 06/14/2019 1 5:36:18 Reading Location: [facility] C013X [facility] [employer] [facility] Reading Room Performing Organization Address City/State/Zipcode Phone Number RIS Arterial Doppler Leg, Right (06/14/2019 12:36 PM CDT) Ejection Fraction [facility] ECHO HEAR TLAB MKCKESSON CPACS Specimen Impressions Performed At Right Impression [facility] ECHO HEARTLAB MKCKESSON CPACS 1. The common femoral, profunda femoral , [...] + + + + + + !Prox MANAGER OF REGULATORY AFFAIRS ! !0 !! ! + + + + + + !Mid MANAGER OF REGULATORY AFFAIRS ! !0 !! ! + + + + + + !Dist MANAGER OF REGULATORY AFFAIRS ! !12.2! ! ! + + + + + + !Prox MARTY ! !17.3! ! ! + + + + + + !Mid MARTY ! !30.6!10.4 ! ! + + + + + + !Dist MARTY ! !34.6!9.63 ! ! + + + + + + Narrative Performed At PV LAB - Lower Extremity Arterial Duplex SLE ECHO HEARTLAB MKCKESSON [facility] Demographics Patient BARBARA Lamas Date of Study 06/14/2019 58 Visit [id number] Male of 1960 Referring Pepper Cong Room Number 7601 Physician Phototypesetting Equipment Monitor Matthew Saucedo [facility] Shana michel, T Physician MD Procedure Type of Study: Extremities Arteries: [...] of Study 06/14/2019 Age 58 Visit Number [id number] Gen dumont Male Accession Number [id number] Michael e of 1960 Referring Pepper Campo m Number [id number] Physician Phototypesetting Equipment Monitor Matthew Schultz erpretin Celi Morgan, T Tanner cueva MD Procedure [...] + + + + + + !Prox MANAGER OF REGULATORY AFFAIRS ! !0 ! ! ! + + + + + + !Mid MANAGER OF REGULATORY AFFAIRS ! !0 ! ! ! + + + + + + !Dist MANAGER OF REGULATORY AFFAIRS ! !12.2 ! ! ! + + + + + + !Prox MARTY ! !17.3 ! ! ! + + + + + + !Mid MARTY ! !30.6 !10.4 ! ! + + + + + + !Dist MARTY ! !34.6 !9.63 ! ! + + + + + + Performing Organization Address City/State/[facility] Centercode Phone Number [facility] ANDREA's With PT and DP Doppler Unilateral (06/14/2019 10:39 AM CDT) [facility]CHO [facility] [place] Specimen Impressions Performed At Right Impression [facility] Modular [facility] 1. The posterior tibial and dorsalis [...] are measured in cm Narrative Performed At PV LAB - Lower Extremity Arterial Proced [facility] ECHO HEARTLAB MKCKESSON [facility] Demographics Patient BARBARA Lamas Date of Study 06/14/2019 58 Visit [id number] Male of 1960 Referring [facility] Room Number [id number] Physician Phototypesetting Equipment Monitor Matthew michel [facility] Physician Procedure Type of Study: Extremities Arteries: [...] of Study 06/14/2019 Age 58 Visit Number [id number] Gen julia Male Accession Number [id number] Michael e of 1960 Referring [facility] Cong Campo m Number [id number] Physician Phototypesetting Equipment Monitor Matthew Saucedo [facility] Celi Morgan, [facility] Tanner cueva MD Procedure Type of Study: [...] are measured in cm Performing Organization Address City/State/Zipcode Phone Number [facility] ECHO HEARTLAB MKCKESSON CPACS after 11/04/2018 Insurance Payer Benefit Plan / Subscriber ID Type Phone Address Group [id number] xxxxxxxxx ScoreFeeder Contracted ALL CDC REVIEW CDC REVIEW [place] [address] [place] [address] Advance Directives For more information, please contact:[facility] Medical CenterMynt Facilities ServicesDaniel Ville [id number] [place], [place] [phone] Code Status Date Activated Date Inactivated Comments Full Code 06/14/2019 8:42 AM 06/27/2019 5:21 PM This code status was determined by: Patient
--- OUTSIDE RECORDS SUMMARY | 2019-11-05 11:19 | XMS REPORT | Continuity of Care Document ---
:1960 Author Organization [facility] t Address [address] [place] [address] Dr. [address]. [address] [place] [address] Care Team Providers Name Role Phone Tito Duval MD Primary Care Physician STAR CLOUD Attending Clinician Unavailable Ruby Cloud DPM Attending Clinician Kandy Elias MD Attending Clinician Sherrill Kimball Attending Clinician Jerome Burk Attending Clinician Susanna Arora Attending Clinician Unavailable Vikas Cloud DPM Attending Clinician Duarte SPARKS Attending Clinician Steve Danielle MD Attending Clinician KENY HAGAN Attending Clinician Unavailable Keny Hagan MD Attending Clinician Jeremy Land MD Attending Clinician [phone] Merchant LOGAN Attending Clinician Filomena Alvarez MD Attending Clinician Fela Danielle MD Attending Clinician Jatinder DORSEY Attending Clinician Unavailable Clemente Attending Clinician Unavailable Jorge Attending Clinician Unavailable Venus Trinidad MD Attending Clinician Belle Farrar MD Attending Clinician Lady TAYLOR Attending Clinician Unavailable Susanna Chau Attending Clinician ANANDA Attending Clinician Unavailable KANDY ELIAS Admitting Clinician Unavailable KENY HAGAN Admitting Clinician Unavailable Payers Payer Name Policy Policy Number Effective Expiration Source Type Date Date CIGNA xxxxxxxxx [facility] Medic [facility] ALLxxxxxxxxxMaps Contracted [facility] REVIEWCDC xxxxxxxx [facility] REVIEWxxxxxxxxPO - Medica [facility] [id number] CIGNA xxxxxxxxxxx 2019 [facility] 00:00:00 Methodi [facility] ADVxxxxxxxxxxx1 0-Present[facility] MEDICAREMEDICARE PART xxxxxxxxxxx 2019 Ramesh Bean AND 00:00:00 Jain Bxxxxxxxxxxx3- [place], [facility] Problems Condition Condition Condition Status Onset Resolution Last Treating Co mments Source Name Details Category Date Date Treatment Clinician Date HTN HTN Disease Active [facility] (hypertens (hypertens 10-19 kes - ion) ion) 00:00: Medical 00 Center Thrombophl Thrombophl Disease Active [facility] ebitis ebitis 10-19 [facility] Status Status Disease Active [facility] post post 10-17 - transmetat transmetat 00:00: Me dical arsal arsal 00 Center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 of foot, of foot, right right Status Status Disease Active [facility] post skin post skin 10-17 s - graft graft 00:00: Medical using using 00 Center Integra Integra wound wound dressing dressing DM DM Disease Active [facility] (diabetes (diabetes 10-17 Luke [facility] - mellitus) mellitus) 00:00: Medi amna type II, type II, 00 Center controlled controlled , with , with peripheral peripheral vascular vascular disorder disorder Non-healin Non-healin Disease Active [facility] g wound of g wound of 4 Regi kes -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 00:00: Me dical stump stump 00 Center Ischemia Ischemia Disease Active [facility] foot of foot 06-13 - 00:00: Medical 00 Center CKD CKD Disease Active [facility] (chronic (chronic 06-13 [facility] - kidney kidney 00:00: Medical disease) disease) 00 Center stage V stage V requiring requiring chronic chronic dialysis dialysis Type 2 Type 2 Disease Active [facility] diabetes diabetes 06-13 [facility] - mellitus mellitus 00:00: Medica l with with 00 Center diabetic diabetic peripheral peripheral angiopathy angiopathy and and gangrene, gangrene, with with long-term long-term current current use of use of insulin insulin PAD PAD Disease Active [facility] (periphera (periphera 06-13 - l artery l artery 00:00: Medica l disease) disease) 00 Center CAD CAD Disease Active [facility] (coronary (coronary 09-22 Meth virgen artery artery 00:00: st disease) disease) 00 Hypertensi Hypertensi Disease Active [facility] on on 09-22 Methodi 00:00: st 00 ESRD (end ESRD (end Disease Active Tete ston stage stage 09-22 Methodi renal renal 00:00: st disease) disease) 00 on on dialysis dialysis S/P CABG x S/P CABG x Disease Active H [facility] 3 3 09-22 Methodi 00:00: st 00 Acute Acute Disease Active [facility] blood loss blood loss 09-22 Me thodi anemia anemia 00:00: st 00 Blind left Blind left Disease Active H [facility] eye eye 09-22 Methodi 00:00: st 00 Type 2 Type 2 Disease Active [facility] diabetes diabetes 09-22 Method i mellitus mellitus 00:00: st 00 CAD in CAD in Disease Active [place] Added Methodi artery artery 00:00: automatic st 00 ally from request for surgery [id number] ESRD on ESRD on Disease Active [facility] hemodialys hemodialys [facility] Allergies, Adverse Reactions, Alerts This patient has no known allergies or adverse reactions. Family History Family Member Diagnosis Comments Start Date Stop Date Source Natural father Diabetes [facility] Natural mother Diabetes [facility] Social History Social Habit Start Date Stop Date Quantity Comments Source History of tobacco Current smoker Ho steve Jain use History SDOH [facility] - Alcohol Std Drinks Medica [facility] History SDOH [facility] - Alcohol Binge Medical [facility] Sex Assigned At [facility] Tobacco Comment 2019-09-12 2019-09-12 [facility] History SDOH 2019-06-14 2019-06-14 1 [facility] - Alcohol Frequency 00:00:00 00:00:00 [facility] Alcohol intake 2018-10-24 2018-10-24 Ex-drinker [facility] thodist 00:00:00 00:00:00 (finding) Smoking Status Start Date Stop Date Source Former smoker 2019-10-18 00:00:00 2019-10-18 00:00:00 [facility] Medications Ordered Filled Start Stop Current Ordering Indication Dosage Frequency Signature Comments Components Source Medication Medication Date Date Medication? Clinician (SIG) Name Name levoFLOXaci 2019- Yes 500mg Take [address] n 10-23 tablet [facility] - (LEVAQUIN) 00:00: 23:59 (500 mg Med ical 500 MG 00 :00 total) by Center tablet mouth every other day for 36 days. fluconazole 2019- Yes 200mg QD Take [address] (DIFLUCAN) 10-23 tablet [facility] - 200 MG 00:00: 23:59 (200 mg Medical tablet 00 :00 total) by Center mouth daily for 36 days. carvediloL 2020- Yes 25mg Q.5D Take [address] (COREG) 10-22 tablets [facility] - 12.5 MG 00:00: 23:59 (25 mg Medical tablet 00 :00 total) by Center mouth 2 (two) times daily. hydrALAZINE 2020- Yes 50mg Q.5D Take [address] [facility] [address] (APRESOLINE 10-22 tablets Luke s - ) 25 MG 00:00: 23:59 (50 mg Medical tablet 00 :00 total) by Center mouth 2 (two) times daily. atorvastati Yes 40mg QD Take [address] [facility] n (LIPITOR) 8-07 by mouth Luke s - 40 MG 10:23: daily. Medical tablet 33 Center acetaminoph 2020-0 Yes 500mg Take [address] en 8-07 mg by [facility] - (TYLENOL) 10:23: mouth Medical 500 MG 32 every 6 Center tablet (six) hours as needed for Pain. glipiZIDE 2019-0 Yes 10mg Take [address] (GLUCOTROL) 8-07 by mouth 2 Regi kes - 10 MG 10:23: (two) Medical tablet 32 times Center daily before meals. insulin 2019-0 Yes Q.5D Inject [facility] glargine 8- subcutaneo [facility] - (LANTUS 10:23: usly 2 Medical SOLOSTAR 32 (two) Center U-100 times INSULIN) daily 7 100 unit/mL units in (3 mL) InPn AM10 units in PM . calcium 2019-0 Yes 600mg Take 600 [facility] carbonate 8-07 mg by [facility] - (OS-AMNA) 10:23: mouth 3 Medica l 600 mg 32 (three) Center calcium times (1,500 mg) daily with Tab meals. amLODIPine 2020- No 10mg QD Take [address] [facility] (NORVASC) -26 06- tablet (10 Sylvia es - 10 MG 00:00: 23:59 mg total) Medica l tablet 00 :00 by mouth Center daily. spironolact 2020- No 25mg QD Take [address] [facility] [facility] one -26 06-22 tablet (25 [facility] - (ALDACTONE) 00:00: 23:59 mg total) Medical 25 MG 00 :00 by mouth Center tablet daily. furosemide 2019-2020- No 40mg QD Take [address] (LASIX) 40 -26 06- tablet (40 Regi kes - MG tablet 00:00: 23:59 mg total) Me dical 00 :00 by mouth Center daily. gabapentin 2019-0 2020- No 300mg QD Take [address] (NEURONTIN) 4-22 -22 capsule Luke s - 300 MG 00:00: 23:59 (300 mg Medical capsule 00 :00 total) by Center mouth daily. aspirin 81 2019-2020- No 81mg QD Take [address] MG chewable -26 06- tablet (81 L ukes - tablet 00:00: 23:59 mg total) Medic al 00 :00 by mouth [place] 3200mg Take [address] (RENVELA) 06-26- tablets [facility] - 800 mg 00:00: 23:59 (3,200 mg Medic al tablet 00 :00 total) by Center mouth 3 (three) times daily with meals. senna-docus 2020- No 2{tbl} QD Take [address] ate 06-26 tablets by [facility] - (SENOKOT S) 00:00: 23:59 mouth Medi amna 8.6-50 mg 00 :00 nightly. Center per tablet carvediloL No 12.5mg Q.5D Take [address] (COREG) 06-26 tablet [facility] - 12.5 MG 00:00: 00:00 (12.5 mg Medic al tablet 00 :00 total) by Center mouth 2 (two) times daily. hydrALAZINE No 25mg Q.5D Take [address] (APRESOLINE 06-26 tablet (25 L ukes - ) 25 MG 00:00: 00:00 mg total) Medi amna tablet 00 :00 by mouth 2 Center (two) times daily. insulin 2019- No 10U Q.5D Inject 0.[address] detemir 06-2618 mLs (10 [facility] - U-100 00:00: 00:00 Units Medical (LEVEMIR) 00 :00 total) Center 100 unit/mL subcutaneo (3 mL) InPn usly 2 injection (two) times daily. traMADoL 2019- No 50mg Take [address] (ULTRAM) 50 06-26 tablet (50 L ukes - mg tablet 00:00: 23:59 mg total) Me dical 00 :00 by mouth Center every 6 (six) hours as needed for up to 10 days. Max Daily Amount: 200 mg HYDROcodone 2019- No 1{tbl} Take [address] -acetaminop 06-2602 tablet by Regi perry (NORCO 00:00: 23:59 mouth Medic al 10-325) 00 :00 every 6 Center 10-325 mg (six) per tablet hours as needed for up to 10 days. Max Daily Amount: 4 tablets sodium 2019- No Q.5D Apply [facility] hypochlorit 06-26 topically Regi kes - e (DAKIN'S, 00:00: 23:59 2 (two) Me dical HALF-STRENG 00 :00 times Center TH,) 0.25 % daily for external 7 days. solution mupirocin 2019- No 1g QD Apply [address] (BACTROBAN) 06-26 topically Regi kes - 2 % 00:00: 23:59 daily for Medical ointment 00 :00 7 days. Center amoxicillin 2019- No 1{tbl} Q24H Take [address] -clavulanat 06-26 tablet by Regi kes - e 00:00: 23:59 mouth Medical (AUGMENTIN) 00 :[address] 500-125 mg 6 days. per tablet mINOCYCLine 2019- No 100mg Take [address] (MINOCIN,DY 06-26 capsule Luke s - NACIN) 100 00:00: 23:59 (100 mg Med ical MG capsule 00 :00 total) by Cent er mouth every 12 (twelve) hours for 6 days. polyethylen No 34g Q.5D Take 34 g [facility] [...] ciprofloxac 2018- No 500mg QD Take 1 Ramesh wilson in (CIPRO) 10-29 tablet Method i 500 MG 00:00: 23:59 ([address] tablet 00 :00 total) by mouth daily for 7 days. glipiZIDE Yes 10mg Q.5D Take 10 mg Ramesh wilson (GLUCOTROL) 8- by mouth 2 Ia thodi 10 MG 13:35: (two) st tablet 32 times a day before meals. spironolact 2019- Yes 25mg QD Take 25 mg Song one 8-20 by mouth Methodi (ALDACTONE) 13:35: daily. st 25 MG 32 tablet gabapentin 2018- Yes 300mg QD Take 300 [place] (NEURONTIN) 8-20 mg by Methodi 300 mg 13:35: mouth st capsule 32 daily. Vital Signs Vital Name Observation Time Observation Value Comments Source Systolic blood 2019-10-23 10:53:00 136 mm[Hg] [facility] Diastolic blood 2019-10-23 10:53:00 65 mm[Hg] [facility] Heart rate 2019-10-23 10:53:00 68 /min [facility] Body temperature 2019-10-23 10:53:00 36.44 Rima [facility] Respiratory rate 2019-10-23 10:53:00 18 /min [facility] Oxygen saturation in 2019-10-23 10:53:00 97 /min [facility] Arterial blood by Medical Ce nter Pulse oximetry Body weight Measured 2019-10-22 08:48:00 110 kg [facility] BMI 2019-10-22 08:48:00 31.99 kg/m2 [facility] Body height 2019-10-18 07:20:00 185.4 cm [facility] Systolic blood 2019-05-10 08:04:00 166 mm[Hg] Anato n Jain pressure Diastolic blood 2019-05-10 08:04:00 80 mm[Hg] Anat on Jain pressure Heart rate 2019-05-10 08:04:00 93 /min [facility] Body temperature 2019-05-10 08:02:00 35.67 Rima [place] [facility] Respiratory rate 2019-05-10 08:02:00 18 /min [facility] Body height 2019-05-10 08:02:00 180.3 cm [facility] Body weight 2019-05-10 08:02:00 103.284 kg Song Jain BMI 2019-05-10 08:02:00 31.76 kg/m2 [facility] Oxygen saturation in 2019-05-10 08:02:00 99 /min [facility] blood by Pulse oximetry Procedures Procedure Date / Time Performing Clinician Source Performed RHYTHM STRIP - SCAN 2019-10-24 11:34:28 Provider, Lisa [facility] POCT-GLUCOSE METER 2019-10-23 10:56:00 Star Cloud [facility] POCT-GLUCOSE METER 2019-10-23 07:40:00 Star Cloud [facility] POCT-GLUCOSE METER 2019-10-22 20:55:00 Star Cloud [facility] POCT-GLUCOSE METER 2019-10-22 14:46:00 Star Cloud [facility] BASIC METABOLIC PANEL (7) 2019-10-22 08:59:00 Wilder Orantes [facility] POCT-GLUCOSE METER 2019-10-22 07:53:00 Star Cloud [facility] POCT-GLUCOSE METER 2019-10-21 21:06:00 Star Cloud [facility] POCT-GLUCOSE METER 2019-10-21 15:35:00 Star Cloud [facility] POCT-GLUCOSE METER 2019-10-21 11:58:00 Star Cloud [facility] POCT-GLUCOSE METER 2019-10-21 07:39:00 Star Cloud [facility] BASIC METABOLIC PANEL (7) 2019-10-21 05:12:[address] [facility] CBC W/PLT COUNT & AUTO 2019-10-21 05:12:00 Dickson Elias [facility] POCT-GLUCOSE METER 2019-10-20 20:50:00 Star Cloud [facility] POCT-GLUCOSE METER 2019-10-20 17:19:00 Star Cloud [facility] HEMODIALYSIS INPATIENT 2019-10-20 14:26:20 Thierno Rizo [facility] POCT-GLUCOSE METER 2019-10-20 11:31:00 Star Cloud [facility] HEPATITIS B SURFACE 2019-10-20 10:35:00 Thierno Rizo [facility] ANTIGEN [facility] POCT-GLUCOSE METER 2019-10-20 07:34:00 Star Cloud [facility] POCT-GLUCOSE METER 2019-10-19 21:26:00 Star Cloud [facility] TRANSFUSION SERVICE 2019-10-19 18:01:02 Provider, Lisa [facility] REPORT - SCAN [facility] POCT-GLUCOSE METER 2019-10-19 16:28:00 Star Cloud [facility] POCT-GLUCOSE METER 2019-10-19 08:21:00 Star Cloud [facility] POCT-GLUCOSE METER 2019-10-18 17:44:00 Star Cloud [facility] CALCIUM, IONIZED 2019-10-18 17:12:26 [facility] BLOOD GAS, ARTERIAL 2019-10-18 17:12:26 [facility] SODIUM NA-STAT LAB 2019-10-18 17:12:26 [facility] POTASSIUM-STAT LAB 2019-10-18 17:12:26 [facility] GLUCOSE-STAT LAB 2019-10-18 17:12:26 [facility] HGB/HCT (H&H) - STAT LAB 2019-10-18 17:12:26 [facility] ANAEROBIC CULTURE 2019-10-18 16:23:39 Star Cloud [facility] SURGICALLY OBTAINED 2019-10-18 16:23:39 Star Cloud [facility] - CULTURE + GRAM STAIN Medical [facility] [address] [facility] ANAEROBIC CULTURE 2019-10-18 16:21:36 Star Cloud [facility] SURGICALLY OBTAINED 2019-10-18 16:21:36 Star Cloud [facility] - CULTURE + GRAM STAIN Medical [facility] [address] [facility] CALCIUM, IONIZED 2019-10-18 15:52:54 Ferreira, [facility] BLOOD GAS, ARTERIAL 2019-10-18 15:52:54 Ferreira, [facility] SODIUM NA-STAT LAB 2019-10-18 15:52:54 Ferreira, [facility] POTASSIUM-STAT LAB 2019-10-18 15:52:54 Ferreira, [facility] GLUCOSE-STAT LAB 2019-10-18 15:52:54 Ferreira, [facility] HGB/HCT (H&H) - STAT LAB 2019-10-18 15:52:[facility] 2019-10-18 15:05[facility], [facility] 2019-10-18 15:05:16 Ferreira, [facility] SODIUM NA-STAT LAB 2019-10-18 15:05:16 Ferreira, [facility] POTASSIUM-STAT LAB 2019-10-18 15:05:16 Ferreira, [facility] GLUCOSE-STAT LAB 2019-10-18 15:05:16 [facility]&H[facility] - STAT LAB 2019-10-18 15:05:16 [facility] DE[facility]/I&D,WOUND 2019-10-18 14:00:00 Star Cloud [facility] OSTECTOMY,FOOT/ TOE 2019-10-18 14:00:00 Star Cloud [facility] AMPUTATION,FOOT 2019-10-18 14:00:00 Star Cloud [facility] PLACEMENT,WOUND VAC 2019-10-18 14:00:00 Star Cloud [facility] SKIN GRAFT,SKIN 2019-10-18 14:00:[address] [facility] HEMOGLOBIN 2019-10-18 07:59:00 Isael Rendon [facility] PLATELET COUNT 2019-10-18 07:59:00 Gentle[facility], 2019-10-18 07:59:00 [facility] AUTOMATED [facility] ELECTROLYTE PANEL 2019-10-18 07:58:00 Justice [facility] BUN AND CREATININE 2019-10-18 07:58:00 [facility] W/RATIO [facility] GLUCOSE 2019-10-18 07:58:00 Justice [facility] SARS-COV2/RT-PCR ([facility] & 2019-10-18 07:41:00 Star Cloud I [facility] - REF LABS) [facility] POCT-GLUCOSE METER 2019-10-18 06:14:00 Star Cloud [facility] BUN AND CREATININE 2019-09-10 09:20:00 [facility] W/RATIO [facility] ELECTROLYTE PANEL 2019-09-10 09:20:00 Justice [facility] GLUCOSE 2019-09-10 09:20:00 Justice [facility] HEMOGLOBIN 2019-09-10 09:20:00 Justice [facility] RHYTHM STRIP - SCAN 2019-07-04 12:40:46 Provider, [facility] TRANSFUSION SERVICE 2019-06-29 18:00:29 Provider, [facility] - REPORT - SCAN [facility] RHYTHM STRIP - SCAN 2019-06-29 09:01[facility] - 2019-06-29 09:01:19 Provider, [facility] ENDOSCOPY SCAN [facility] CARDIAC CATH REPORT - 2019-06-29 09:01:16 Provider, [facility] [id number] 2019-06-29 00:00:00 ENCPL [id number] 2019-06-29 00:00:00 ENCPL [id number] 2019-06-29 00:00:00 ENCPL [id number] 2019-06-29 00:00:00 ENCPL [id number] 2019-06-29 00:00:00 ENCPL [id number] 2019-06-29 00:00:00 ENCPL PREPARE LEUKO-REDUCED RBC 2019-06-28 23:54:00 Pepper Hagan [facility] TRANSFUSION SERVICE 2019-06-28 18:00:20 Lisa Velasquez [facility] REPORT - SCAN Scanning [facility] POCT-GLUCOSE METER 2019-06-27 12:06:00 Pepper Hagan [facility] HEMODIALYSIS INPATIENT 2019-06-27 11:56:42 Julio Hurst [facility] TRANSFUSE LEUKO-REDUCED 2019-06-27 10:49:24 Pepper Hagan [facility] RED BLOOD CELLS [facility] TYPE AND SCREEN, 2019-06-27 08:45:00 Pepper Hagan [facility] AUTOMATED [facility] POCT-GLUCOSE METER 2019-06-27 07:52:00 Pepper Hagan [facility] BASIC METABOLIC PANEL (7) 2019-06-27 03:39:00 Pepper Hagan [facility] MAGNESIUM 2019-06-27 03:39:00 Pepper Hagan [facility] PHOSPHORUS 2019-06-27 03:39:00 Pepper Hagan [facility] CBC W/PLT COUNT & AUTO 2019-06-27 03:39:00 Pepper Hagan [facility] POCT-GLUCOSE METER 2019-06-26 20:54:00 Pepper Hagan [facility] POCT-GLUCOSE METER 2019-06-26 16:40:00 Pepper Hagan [facility] POCT-GLUCOSE METER 2019-06-26 11:38:00 Pepper Hagan Keny [facility] POCT-GLUCOSE METER 2019-06-26 07:08:00 Giselle Haganhal Keny [facility] BASIC METABOLIC PANEL (7) 2019-06-26 03:31:00 Pepper Hagan [facility] MAGNESIUM 2019-06-26 03:31:00 Pepper Hagan [facility] PHOSPHORUS 2019-06-26 03:31:00 [facility] W/PLT COUNT & AUTO 2019-06-26 03:31:00 Pepper Hagan [facility] POCT-GLUCOSE METER 2019-06-25 23:51:00 Pepper Hagan [facility] POCT-GLUCOSE METER 2019-06-25 21:05:00 Pepper Hagan [facility] POCT-GLUCOSE METER 2019-06-25 16:41:00 [facility] POCT-GLUCOSE METER 2019-06-25 13:46:00 [facility]SE [facility] 2019-06-25 11:06:00 [facility] HEMOD[facility] INPATIENT 2019-06-25 08:18:33 Marcio Hinds [facility] POCT-GLUCOSE METER 2019-06-25 07:47:00 [facility] BASIC METABOLIC PANEL (7) 2019-06-25 06:03:00 [facility] MAGNESIUM 2019-06-25 06:03:00 Pepper Hagan [facility] PHOSPHORUS 2019-06-25 06:03:00 [facility] CBC W/PLT COUNT & AUTO 2019-06-25 06:03:00 Pepper Hagan [facility] POCT-GLUCOSE METER 2019-06-24 21:30:00 Merchant [facility] POCT-GLUCOSE METER 2019-06-24 16:41:00 Merchant [facility] POCT-GLUCOSE METER 2019-06-24 11:55:00 Merchant [facility] POCT-GLUCOSE METER 2019-06-24 07:52:00 Merchant, [facility] CBC W/PLT COUNT & AUTO 2019-06-24 04:28:00 Pepper Hagan [facility] BASIC METABOLIC PANEL (7) 2019-06-24 04:27:00 Pepper Hagan [facility] MAGNESIUM 2019-06-24 04:27:00 Pepper Hagan [facility] PHOSPHORUS 2019-06-24 04:27:00 [facility] POCT-[facility]UCOSE METER 2019-06-23 21:43:00 Merchant [facility] POCT-GLUCOSE METER 2019-06-23 16:56:00 Merchant, [facility] POCT-GLUCOSE METER 2019-06-23 11:30:00 Merchant, [facility] POCT-GLUCOSE METER 2019-06-23 07:44:00 Merchant, [facility] BASIC METABOLIC PANEL (7) 2019-06-23 04:58:00 Pepper Hagan [facility] MAGNESIUM 2019-06-23 04:58:00 Pepper Hagan [facility] PHOSPHORUS 2019-06-23 04:58:00 [facility] VANCOMYCIN LEVEL, RANDOM 2019-06-23 04:58:00 Kamala Joyce Mccain [facility] CBC W/PLT COUNT & AUTO 2019-06-23 04:58:00 Pepper Hagan [facility] POCT-GLUCOSE METER 2019-06-22 20:50:00 Merchant, [facility] POCT-GLUCOSE METER 2019-06-22 16:55:00 Merchant, [facility] HEMODIALYSIS INPATIENT 2019-06-22 12:02:34 Wilder Orantes [facility] POCT-GLUCOSE METER 2019-06-22 12:00:00 Merchant, [facility] POCT-GLUCOSE METER 2019-06-22 11:28:00 Merchant, [facility] POCT-GLUCOSE METER 2019-06-22 08:00:00 Merchant [facility] BASIC METABOLIC PANEL (7) 2019-06-22 04:19:00 Pepper Hagan [facility] MAGNESIUM 2019-06-22 04:19:00 Pepper Hagan [facility] PHOSPHORUS 2019-06-22 04:19:00 Hagan, [facility] VANCOMYCIN LEVEL, RANDOM 2019-06-22 04:19:00 Destini Santos [facility] CBC W/PLT COUNT & AUTO 2019-06-22 04:19:00 Pepper Hagan I [facility] POCT-GLUCOSE METER 2019-06-21 21:27:00 Merchant [facility] POCT-GLUCOSE METER 2019-06-21 16:51:00 Merchant [facility] POCT-GLUCOSE METER 2019-06-21 12:08:00 Merchant, [facility] POCT-GLUCOSE METER 2019-06-21 08:07:00 Merchant, [facility] BASIC METABOLIC PANEL (7) 2019-06-21 03:33:00 Pepper Hagan [facility] MAGNESIUM 2019-06-21 03:33:00 [facility] 2019-06-21 03:33:00 Pepper Hagan [facility] CBC W/PLT COUNT & AUTO 2019-06-21 03:33:00 Pepper Hagan [facility] POCT-GLUCOSE METER 2019-06-20 20:35:00 Merchant, [facility] POCT-GLUCOSE METER 2019-06-20 17:00:00 Merchant, [facility] POCT-GLUCOSE METER 2019-06-20 12:23:00 Merchant, [facility] POCT-GLUCOSE METER 2019-06-20 10:01:00 Merchant, [facility] POCT-GLUCOSE METER 2019-06-20 08:40:00 Merchant [facility] HEMODIALYSIS INPATIENT 2019-06-20 07:21:04 [facility] BASIC METABOLIC PANEL (7) 2019-06-20 04:10:00 Pepper Hagan [facility] MAGNESIUM 2019-06-20 04:10:00 HaganPepper lord [facility] PHOSPHORUS 2019-06-20 04:10:00 Hagan, [facility] VANCOMYCIN LEVEL, RANDOM 2019-06-20 04:10:00 Aicha Kenny [facility] CBC W/PLT COUNT & AUTO 2019-06-20 04:10:00 [facility] POCT-GLUCOSE METER 2019-06-19 21:08:00 [facility] XR FOOT 2 VIEWS RIGHT 2019-06-19 17:57:00 Star Cloud [facility] POCT-GLUCOSE METER 2019-06-19 17:01:00 [facility] POCT-GLUCOSE METER 2019-06-19 12:52:00 [facility] POCT-GLUCOSE METER 2019-06-19 11:50:00 [facility] TISSUE EXAM 2019-06-19 11:18:00 Star Cloud [facility] SURGICALLY OBTAINED 2019-06-19 09:50:45 Star Cloud [facility] - CULTURE + GRAM STAIN Medical Juan Alberto ter ANAEROBIC CULTURE 2019-06-19 09:50:45 Star Cloud [facility] FUNGUS CULTURE + SMEAR 2019-06-19 09:50:45 Star Cloud [facility] AFB CULTURE + SMEAR 2019-06-19 09:50:45 Star Cloud [facility] (NON-SPUTUM) [facility] SPIN/CONCENTRATION CHARGE 2019-06-19 09:50:00 Star Cloud [facility] AMPUTATION,TOE 2019-06-19 08:30:00 Star Cloud [facility] OSTECTOMY,FOOT/ TOE 2019-06-19 08:30:00 Star Cloud [facility] AMPUTATION,FOOT 2019-06-19 08:30:00 Star Cloud [facility] PROCEDURE W/ SPY ELITE 2019-06-19 08:30:00 Star Cloud [facility] VASCULAR Medical Juan Alberto ter ANGIOGRAPHY ECG 12-LEAD 2019-06-19 07:28:28 Unknown, Hl7 Doctor [facility] POCT-GLUCOSE METER 2019-06-19 07:09:00 Merchant [facility] BASIC METABOLIC PANEL (7) 2019-06-19 04:41:00 Pepper Hagan [facility] MAGNESIUM 2019-06-19 04:41:00 Pepper Hagan [facility] PHOSPHORUS 2019-06-19 04:41:00 Pepper Hagan [facility] VANCOMYCIN LEVEL, RANDOM 2019-06-19 04:41:00 Karyna Juarez [facility] CBC W/PLT COUNT & AUTO 2019-06-19 04:41:00 Pepper Hagan [facility] POCT-GLUCOSE METER 2019-06-18 21:11:00 Merchant [facility] POCT-GLUCOSE METER 2019-06-18 17:11:00 Merchant, [facility] POCT-GLUCOSE METER 2019-06-18 11:50:00 Merchant, [facility] POCT-GLUCOSE METER 2019-06-18 10:22:00 [facility] HEMODIALYSIS INPATIENT 2019-06-18 07:07:00 Trudy Stevens [facility] BASIC METABOLIC PANEL (7) 2019-06-18 03:48:00 Pepper Hagan [facility] MAGNESIUM 2019-06-18 03:48:00 Pepper Hagan [facility] PHOSPHORUS 2019-06-18 03:48:00 Pepper Hagan [facility] VANCOMYCIN LEVEL, TROUGH 2019-06-18 03:48:00 Bang Starkey [facility] CBC W/PLT COUNT & AUTO 2019-06-18 03:48:00 Pepper Hagan [facility] POCT-GLUCOSE METER 2019-06-17 20:46:00 [facility] 2019-06-17 17:16[facility]00 [facility] POCT-[facility]UCOSE METER 2019-06-17 12:23:00 [facility] POCT-[facility]UCOSE METER 2019-06-17 08:39:00 [facility] BASIC METABOLIC PANEL (7) 2019-06-17 04:51:00 Pepper Hagan [facility] MAGNESIUM 2019-06-17 04:51:00 Pepper Hagan [facility] PHOSPHORUS 2019-06-17 04:51:00 Pepper Hagan [facility] CBC W/PLT COUNT & AUTO 2019-06-17 04:51:00 Pepper Hagan [facility] POCT-GLUCOSE METER 2019-06-16 21:25:00 [facility] TRANSF[facility] SERVICE 2019-06-16 17:50:22 Lisa Velasquez [facility] POCT-GLUCOSE METER 2019-06-16 16:33:00 [facility] POCT-GLUCOSE METER 2019-06-16 11:50:00 [facility] POCT-GLUCOSE METER 2019-06-16 08:06:00 GadicherShi moody [facility] BASIC METABOLIC PANEL (7) 2019-06-16 04:49:00 Pepper Hagan [facility] MAGNESIUM 2019-06-16 04:49:00 Pepper Hagan [facility] PHOSPHORUS 2019-06-16 04:49:00 HaganGiselle lordSt[facility] Hospital[facility] VANCOMYCIN LEVEL, RANDOM 2019-06-16 04:49:00 Karyna Juarez [facility] CBC W/PLT COUNT & AUTO 2019-06-16 04:49:00 HaganPepper lord [facility] (CELLAVISION MANUAL DIFF) 2019-06-16 04:49:00 Ppeper Hagan [facility] PERIPHERAL VASCULAR 2019-06-15 21:11:38 ProviderLisa [facility] REPORT - SCAN Scanning [facility] POCT-GLUCOSE METER 2019-06-15 21:07:00 [facility] POCT-GLUCOSE METER 2019-06-15 17:11:00 [facility] POCT-GLUCOSE METER 2019-06-15 13:57:00 [facility] PO[facility]-ACT 2019-06-15 12:21:00 [facility] / 2019-06-15 10:27:00 Clark Danielle [facility] AORTOGRAM [facility] ABORH, MANUAL 2019-06-15 09:53:00 Mohini Hi [facility] HEMODIALYSIS INPATIENT 2019-06-15 07:34:58 Trudy Stevens [facility] BASIC METABOLIC PANEL (7) 2019-06-15 04:07:00 Cong Pepper Keny [facility] MAGNESIUM 2019-06-15 04:07:00 Cong Pepper Bustillo [facility] PHOSPHORUS 2019-06-15 04:07:00 Pepper Hagan [facility] HEPATITIS B SURFACE 2019-06-15 04:07:00 [facility] TYPE AND [facility]CREEN, 2019-06-15 04:07:00 Madelyn Kay [facility] s - AUTOMATED [facility] CBC W/PLT COUNT & AUTO 2019-06-15 04:07:00 Pepper Hagan [facility] POCT-GLUCOSE METER 2019-06-14 22:19:00 [facility]SE [facility] 2019-06-14 21:18:00 Cong [facility] POCT-GLUCOSE METER 2019-06-14 16:41:00 Cong [facility] BASIC METABOLIC PANEL (7) 2019-06-14 15:12:00 Cong [facility] MAGNESIUM 2019-06-14 15:12:00 Cong [facility] PHOSPHORUS 2019-06-14 15:12:00 Cong [facility] CBC W/PLT COUNT & AUTO 2019-06-14 15:12:00 Pepper Hagan [facility] XR FOOT RIGHT 3 VIEW 2019-06-14 13:57:00 Christiano Davis [facility] ARTERIAL DOPPLER LEG, 2019-06-14 12:36:00 Christiano Davis [facility] POCT-GLUCOSE METER 2019-06-14 12:06:00 Hagan, [facility] PV ARTERIAL ANDREA 2019-06-14 10:39:00 Christiano Davis [facility] POCT-GLUCOSE METER 2019-06-14 09:16:00 Hagan, [facility] URINE CULTURE 2019-05-10 08:10:00 Sonal Trinidad Jain COMPREHENSIVE METABOLIC 2019-05-10 08:10:00 Sonal Trinidad Jain PANEL URINALYSIS SCREEN AND 2019-05-10 08:10:00 Thai, Sonal Donovan Ramesh Steve MICROSCOPY, WITH REFLEX TO CULTURE HC COMPLETE BLD COUNT 2019-05-10 08:10:00 Thai, Sonal Donovan Ramesh Steve W/AUTO DIFF PROTHROMBIN TIME WITH INR 2019-05-10 08:10:00 Thai, Sonaldesiree Steve PARTIAL THROMBOPLASTIN 2019-05-10 08:10:00 Thai, Sonal gerard Jain TIME (PTT) ESTIMATED GFR 2019-05-10 08:10:00 Thai, Sonal Steve OCCULT BLOOD, STOOL 2019-05-09 15:35:00 Thai, Sonal mccord Jain OCCULT BLOOD, STOOL 2019-05-08 10:00:00 Thai, Sonal mccord Jain Plan of Care Planned Activity Planned Date Details Comments Source Future Scheduled 2019-12-06 INFLUENZA VACCINE [place] [facility] 00:00:00 [code = INFLUENZA VACCINE] Future Scheduled 2009-11-11 COLONOSCOPY SCREENING [place] [facility] 00:00:00 [code = COLONOSCOPY SCREENING] Future Scheduled 2009-11-11 SHINGLES VACCINES (#1) [place] [facility] 00:00:00 [code = SHINGLES VACCINES (#1)] Future Scheduled 1969-11-11 DIABETIC FOOT EXAM [place] [facility] 00:00:00 [code = DIABETIC FOOT EXAM] Future Scheduled 1969-11-11 URINE MICROALBUMIN [place] [facility] 00:00:00 [code = URINE MICROALBUMIN] Future Scheduled 1959 DIABETIC RETINAL EYE [place] [facility] 00:00:00 EXAM [code = DIABETIC RETINAL EYE EXAM] Encounters Start End Encounter Admission Attending Care Care Encounter Source Date/Time Date/Time Type Type Clinicians Facility Department ID 2019-10-02 2019-10-02 Office RYAN Cloud [id number] 14:21:54 16:08:48 Visit Star Bean AMBULATOR 350.1.13.21 Y 0.2.7.2.686 [id number] 2019-09-04 2019-09-04 Office RYAN Cloud [id number] 14:17:20 16:48:51 Visit Star Bean AMBULATOR 350.1.13.21 Y 0.2.7.2.686 [id number] 2019-09-04 2019-09-04 Office RYAN Danielle [id number] 14:17:07 16:48:39 Visit Clark Wilson AMBULATOR 350.1.13.21 Y 0.2.7.2.686 [id number] 2019-08-21 2019-08-21 Office Hermes BCM [id number] 16:46:14 16:46:14 Visit Star Bean AMBULATOR 350.1.13.21 Y 0.2.7.2.686 [id number] 2019-08-07 2019-08-07 Office Hermes, BCM [id number] 13:10:09 16:34:44 Visit Star Bean AMBULATOR 350.1.13.21 Y 0.2.7.2.686 [id number] 2019-07-24 2019-07-24 Office Hermes BCM [id number] 13:35:06 14:05:03 Visit Star Bean AMBULATOR 350.1.13.21 Y 0.2.7.2.686 [id number] 2019-07-17 2019-07-17 Office RYAN Danielle [id number] 11:22:05 16:23:11 Visit Clark Wilson AMBULATOR 350.1.13.21 Y 0.2.7.2.686 [id number] [facility] 2019-07-10 2019-07-10 Office Hermes BCLaisha [id number] 15:58:34 16:52:46 Visit Star A AMBULATOR 350.1.13.21 Y 0.2.7.2.686 [id number] [facility] 2019-05-10 2019-05-10 Outpatient [facility] [id number] [place] 00:00:00 00:00:[address] 2019-05-10 2019-05-10 Outpatient TAJIK, [facility] [id number] [place] 00:00:00 00:00:00 SONAL [address] 2019-05-09 2019-05-09 Outpatient TAJIK, [facility] [id number] [place] 00:00:00 00:00:00 SONAL [address] 2019-05-08 2019-05-08 Outpatient TAJIK, [facility] [id number] [place] 00:00:00 00:00:00 SONAL [address] 2018-09-08 2018-09-08 Outpatient ANANDA [facility] [id number] [place] 00:00:00 00:00:00 , ABRAHAM [address] Results Test Description Test Time Test Comments Results Result Comments Source ANAEROBIC CULTURE 2019-10-25 19:16:00 Test Item Value Reference Range Interpretation Comme nts CULTURE (BEAKER) (test code = 1095) A 2+ Same organism has been isolated from culture(s) of t he same body site and collection date . Repeat identification performed only after consultation with the clinical microb iology laboratory.Refer to previous cultur e of* - Cutibacterium acnes Anaerobic [id number] 19:13:00 Test Item Value Reference Range Interpretation Comments Result (test code = 2+ Cutibacterium acnes A 6463-4) Lab Interpretation Abnormal (test code = 78924-7) [facility] [id number] 19:13:00 Test Item Value Reference Range Interpretation Comments CULTURE (BEAKER) (test A 2+ Cu tibacterium acnes code = 1095) POC-Glucose [id number] 11:08:00 Test Item Value Reference Range Interpretation Comments POC-Glucose Meter (test 136 mg/dL 70-110 H : TE STED AT [facility] code = 1538) [address] [place], [address]: Neonatal Intensive Care Nurse/Techni estefani ID = [id number] for YUNIOR GIVENS Lab Interpretation (test Abnormal code = 64750-5) [facility] [id number] 11:08:00 Test Item Value Reference Range Interpretation Comments POC-GLUCOSE METER 136 mg/dL 70-110 H : TESTED A T [facility] 6720 (BEAKER) (test code = DASIA Garcia [facility], 1538) [address]: Neonatal Intensive Care Nurse/Techni estefani ID = [id number] for YUNIOR SIMS POCT-GLUCOSE [id number] 07:51:00 Test Item Value Reference Range Interpretation Comments POC-GLUCOSE METER 89 mg/dL 70-110 : TESTED A T [facility] 6720 (BEAKER) (test code = DASIA Garcia [facility], 1538) [address]241: Neonatal Intensive Care Nurse/Techni estefani ID = [id number] for YUNIOR JOHNSTON POCT-GLUCOSE [id number] 21:07:00 Test Item Value Reference Range Interpretation Comments POC-GLUCOSE METER 145 mg/dL 70-110 H : TESTED A T [facility] 6720 (BEAKER) (test code = CHRISTOSSC Jose [facility], 1538) 91083: Neonatal Intensive Care Nurse/Techni estefani ID = [id number] for RON GODWIN POCT-GLUCOSE [id number] 14:59:00 Test Item Value Reference Range Interpretation Comments POC-GLUCOSE METER 152 mg/dL 70-110 H : TESTED A T [facility] 6720 (BEAKER) (test code = CHRISTOSSC Jose [facility], 1538) 38512: Neonatal Intensive Care Nurse/Techni estefani ID = [id number] for Mary Lou Bartholomew Basic metabolic [id number] 10:10:00 Test Item Value Reference Range Interpretation Comments Sodium (test code = 137 meq/L 095-080 2204-2) Potassium (test code = 4.8 meq/L 3.5-5.1 2823-3) Chloride (test code = 98 meq/L 98-107 2075-0) CO2 (test code = 22 meq/L 22-29 2028-9) BUN (test code = 69 mg/dL 7-21 H 3094-0) Creatinine (test code 10.34 mg/dL 0.57-1.25 H = 2160-0) Glucose (test code = 92 mg/dL 70-105 2345-7) Calcium (test code = 8.0 mg/dL 8.4-10.2 L 82536-7) EGFR (test code = 5 mL/min/1.73 [place] [address]-8) NOT ACCURATE CREATININE CLEARANCE IN PREDICTING GLOMERULAR FILTRATION RATE . ESTIMATED GFR I S NOT APPLICABLE FOR DIALYSIS PATIENTS. MITCHELL (test code = MITCHELL) Neonatal Intensive Care Nurse ID - EDASI Lab Interpretation Abnormal (test code = 98197-3) [facility]OLIC [id number] 10:10:00 Test Item Value Reference Range Interpretation Comments SODIUM (BEAKER) 137 meq/L 136-145 (test code = 381) POTASSIUM (BEAKER) 4.8 meq/L 3.5-5.1 (test code = 379) CHLORIDE (BEAKER) 98 meq/L 98-107 (test code = 382) CO2 (BEAKER) (test 22 meq/L 22-29 code = 355) BLOOD UREA NITROGEN 69 mg/dL 7-21 H (BEAKER) (test code = 354) CREATININE (BEAKER) 10.34 mg/dL 0.57-1.25 H (test code = 358) GLUCOSE RANDOM 92 mg/dL 70-105 (BEAKER) (test code = 652) CALCIUM (BEAKER) 8.0 mg/dL 8.4-10.2 L (test code = 697) EGFR (BEAKER) (test 5 mL/min/1.73 ESTIMAT ED GFR IS code = 1092) sq m NOT ACCURATE CREATININE CLEARANCE IN PREDICTING GLOMERULAR FILTRATION RATE . ESTIMATED GFR I S NOT APPLICABLE FOR DIALYSIS PATIEN TS. Neonatal Intensive Care Nurse ID - EDASISURGICALLY OBTAINED CULTURE + GRAM [id number] 09:54:00 Test Item Value Reference Range Interpretation Comments CULTURE (BEAKER) A <1+ Same or ganism has (test code = been isolated f rom 1095) cultures(s) of the same body site and collection date . Repeat identifi cation and susceptibil ity testing perform ed only after consultat ion with the [facility] microbiology laboratory.Refe r to previous cultur e ofCandida parap silosis GRAM STAIN 1+ WBCs RESULT (BEAKER) (test code = 1123) GRAM STAIN <1+ gram RESULT (BEAKER) negative rods (test code = 234967) GRAM STAIN <1+ gram RESULT (BEAKER) positive cocci (test code = in pairs 310981) 1+ Skin floraSURGICALLY OBTAINED CULTURE + GRAM [id number] 09:49:00 Test Item Value Reference Interpretation Comments Range CULTURE (BEAKER) (test ENTEROBACTER A 3+ En terobacter code = 1095) CLOACAE COMPLEX cloacae comp ibrahima Amikacin (test code = S 1) Aztreonam (test code = S 32) Cefepime (test code = S 51) Cefoxitin (test code = R 68) Ceftazidime (test code S = 27) Ceftriaxone (test code S = 52) Ertapenem (test code = S 38) Gentamicin (test code S = 18) Levofloxacin (test S code = 22) Meropenem (test code = S 34) Nitrofurantoin (test I code = 23) Tetracycline (test S code = 2) Tobramycin (test code S = 25) Trimethoprim + S Sulfamethoxazole (test code = 47) CULTURE (BEAKER) (test A 2+ Ca ndida code = 1095) parapsilosis GRAM STAIN RESULT 1+ WBCs (BEAKER) (test code = 1123) GRAM STAIN RESULT 1+ gram negative (BEAKER) (test code = rods 319667) GRAM STAIN RESULT <1+ gram positive (BEAKER) (test code = rods 455766) GRAM STAIN RESULT 2+ gram positive (BEAKER) (test code = cocci in pairs 004871) GRAM STAIN RESULT 1+ gram positive (BEAKER) (test code = cocci in clusters 030847) GRAM STAIN RESULT 1+ yeast (BEAKER) (test code = 670909) 3+ Skin lake consisting of Coagulase Negative Staphylococcus and Diphtheroid species.POCT-GLUCOSE [id number] 08:04:00 Test Item Value Reference Range Interpretation Comments POC-GLUCOSE METER 92 mg/dL 70-110 : TESTED A T [facility] 6720 (backstitch) (test code = [facility], 153) 38623: Neonatal Intensive Care Nurse/Techni estefani ID = [id number] for Will Phil valadez POCT-GLUCOSE [id number] 21:49:00 Test Item Value Reference Range Interpretation Comments POC-GLUCOSE METER 155 mg/dL 70-110 H : TESTED A T [facility] 6720 (BEAKER) (test code = [facility], 153) 60441: Neonatal Intensive Care Nurse/Techni estefani ID = [id number] for AN RON BAIRD POCT-GLUCOSE [id number] 18:15:00 Test Item Value Reference Range Interpretation Comments POC-GLUCOSE METER 160 mg/dL 70-110 H : TESTED A T [facility] 6720 (BEAKER) (test code = [facility], 1538) 66821: Neonatal Intensive Care Nurse/Techni estefani ID = [id number] for Celi Jesus POCT-GLUCOSE [id number] 14:24:00 Test Item Value Reference Range Interpretation Comments POC-GLUCOSE METER 182 mg/dL 70-110 H : TESTED A T [facility] 6720 (BEAKER) (test code = [facility], 1538) 14434: Neonatal Intensive Care Nurse/Techni estefani ID = [id number] for Celi Jesus POCT-GLUCOSE [id number] 09:44:00 Test Item Value Reference Range Interpretation Comments POC-GLUCOSE METER 146 mg/dL 70-110 H : TESTED A T [facility] 6720 (BEAKER) (test code = [facility], 1538) 26101: Neonatal Intensive Care Nurse/Techni estefani ID = [id number] for Celi Jesus BASIC METABOLIC [id number] 07:20:00 Test Item Value Reference Range Interpretation Comments SODIUM (BEAKER) 138 meq/L 136-145 (test code = 381) POTASSIUM (BEAKER) 4.8 meq/L 3.5-5.1 (test code = 379) CHLORIDE (BEAKER) 100 meq/L 98-107 (test code = 382) CO2 (BEAKER) (test 23 meq/L 22-29 code = 355) BLOOD UREA NITROGEN 49 mg/dL 7-21 H (BEAKER) (test code = 354) CREATININE (BEAKER) 7.99 mg/dL 0.57-1.25 H (test code = 358) GLUCOSE RANDOM 126 mg/dL 70-105 H (BEAKER) (test code = 652) CALCIUM (BEAKER) 8.6 mg/dL 8.4-10.2 (test code = 697) EGFR (BEAKER) (test 7 mL/min/1.73 ESTIMAT ED GFR IS code = 1092) sq m NOT ACCURATE CREATININE CLEARANCE IN PREDICTING GLOMERULAR FILTRATION RATE . ESTIMATED GFR I S NOT APPLICABLE FOR DIALYSIS PATIEN TS. Neonatal Intensive Care Nurse ID - PIAYA LCBC with platelet count + automated [id number] 05:47:00 Test Item Value Reference Range Interpretation Comments WBC (test code = 6690-2) 8.6 3.5- 10.5 K/L RBC (test code = 789-8) 3.95 4.63- 6.08 M/L L MCHC (test code = 786-4) 30.9 32.3- 36.5 GM/DL L Hematocrit (test code = 4544-3) 34.3 % 40.1-51 L MCV (test code = 787-2) 86.8 fL 79-92.2 MCH (test code = 785-6) 26.8 pg 25.7-32.2 RDW (test code = 788-0) 17.3 % 11.6-14.4 H Platelets (test code = 777-3) 287 150- 450 K/CU MM MPV (test code = 39757-5) 9.6 fL 9.4-12.4 nRBC (test code = 413) 0 0- 0 /100 WBC % Neutros (test code = 429) 70 % % Lymphs (test code = 430) 14 % % Monos (test code = 431) 9 % % Eos (test code = 432) 6 % % Baso (test code = 437) 1 % # Neutros (test code = 670) 5.97 1.78- 5.38 K/L H # Lymphs (test code = 414) 1.21 1.32- 3.57 K/L L # Monos (test code = 415) 0.76 0.30- 0.82 K/L # Eos (test code = 416) 0.51 0.04- 0.54 K/L # Baso (test code = 417) 0.07 0.01- 0.08 K/L Immature Granulocytes-Relative 0 % 0-1 (test code = 2801) Lab Interpretation (test code = Abnormal 29685-7) [facility] W/PLT COUNT & AUTO [id number] 05:47:00 Test Item Value Reference Range Interpretation Comments WHITE BLOOD CELL COUNT (BEAKER) 8.6 K/ L 3.5-10.5 (test code = 775) RED BLOOD CELL COUNT (BEAKER) 3.95 M/ L 4.63-6.08 L (test code = 761) HEMOGLOBIN (BEAKER) (test code = 10.6 GM/DL 13.7-17.5 L 410) HEMATOCRIT (BEAKER) (test code = 34.3 % 40.1-51.0 L 411) MEAN CORPUSCULAR VOLUME (BEAKER) 86.8 fL 79.0-92.2 (test code = 753) MEAN CORPUSCULAR HEMOGLOBIN 26.8 pg 25.7-32.2 (BEAKER) (test code = 751) MEAN CORPUSCULAR HEMOGLOBIN CONC 30.9 GM/DL 32.3-36.5 L (BEAKER) (test code = 752) RED CELL DISTRIBUTION WIDTH 17.3 % 11.6-14.4 H (BEAKER) (test code = 412) PLATELET COUNT (BEAKER) (test 287 K/CU MM 150-450 code = 756) MEAN PLATELET VOLUME (BEAKER) 9.6 fL 9.4-12.4 (test code = 754) NUCLEATED RED BLOOD CELLS 0 /100 WBC 0-0 (BEAKER) (test code = 413) NEUTROPHILS RELATIVE PERCENT 70 % (BEAKER) (test code = 429) LYMPHOCYTES RELATIVE PERCENT 14 % (BEAKER) (test code = 430) MONOCYTES RELATIVE PERCENT 9 % (BEAKER) (test code = 431) EOSINOPHILS RELATIVE PERCENT 6 % (BEAKER) (test code = 432) BASOPHILS RELATIVE PERCENT 1 % (BEAKER) (test code = 437) NEUTROPHILS ABSOLUTE COUNT 5.97 K/ L 1.78-5.38 H (BEAKER) (test code = 670) LYMPHOCYTES ABSOLUTE COUNT 1.21 K/ L 1.32-3.57 L (BEAKER) (test code = 414) MONOCYTES ABSOLUTE COUNT (BEAKER) 0.76 K/ L 0.30-0.82 (test code = 415) EOSINOPHILS ABSOLUTE COUNT 0.51 K/ L 0.04-0.54 (BEAKER) (test code = 416) BASOPHILS ABSOLUTE COUNT (BEAKER) 0.07 K/ L 0.01-0.08 (test code = 417) IMMATURE GRANULOCYTES-RELATIVE 0 % 0-1 PERCENT (BEAKER) (test code = 2801) POCT-GLUCOSE [id number] 05:39:00 Test Item Value Reference Range Interpretation Comments POC-GLUCOSE METER 200 mg/dL 70-110 H : TESTED A T [facility] 6720 (BEAKER) (test code = DASIA [address] [place], 1538) 88165: Neonatal Intensive Care Nurse/Techni estefani ID = [id number] for CHRIS MAJANO POCT-GLUCOSE [id number] 05:35:00 Test Item Value Reference Range Interpretation Comments POC-GLUCOSE METER 120 mg/dL 70-110 H : TESTED A T [facility] 6720 (BEAKER) (test code = [facility], 153) [id number]: Neonatal Intensive Care Nurse/Techni estefani ID = [id number] for EVONNE RUBY POCT-GLUCOSE [id number] 05:25:00 Test Item Value Reference Range Interpretation Comments POC-GLUCOSE METER 126 mg/dL 70-110 H : TESTED A T [facility] 6720 (BEAKER) (test code = [facility], 153) [id number]: Neonatal Intensive Care Nurse/Techni estefani ID = [id number] for Celi Jesus POCT-GLUCOSE [id number] 05:19:00 Test Item Value Reference Range Interpretation Comments POC-GLUCOSE METER 103 mg/dL 70-110 : TESTED A T [facility] 6720 (BEAKER) (test code = [facility], 153) 77332: Neonatal Intensive Care Nurse/Techni estefani ID = [id number] for Celi Jesus Hepatitis B surface [id number] 11:26:00 Test Item Value Reference Range Interpretation Comments HBsAg Screen (test code Nonreactive Nonreactive = 5195-3) MITCHELL (test code = MITCHELL) Specimen is considered negative for HBsAg. Lab Interpretation (test Normal code = 66469-2) [facility] [id number] 11:26:00 Test Item Value Reference Range Interpretation Comments HEPATITIS B SURFACE ANTIGEN (2) Nonreactive Nonreactive (BEAKER) (test code = 2585) Specimen is considered negative for HBsAg.POCT-GLUCOSE [id number] 21:38:00 Test Item Value Reference Range Interpretation Comments POC-GLUCOSE METER 170 mg/dL 70-110 H : TESTED A T [facility] 6720 (BEAKER) (test code = [facility], 153) 88083: Neonatal Intensive Care Nurse/Techni estefani ID = [id number] for AN RON BAIRD POCT-GLUCOSE [id number] 17:00:00 Test Item Value Reference Range Interpretation Comments POC-GLUCOSE METER 150 mg/dL 70-110 H : TESTED A T [facility] 6720 (BEAKER) (test code = [facility], 1538) 58914: Neonatal Intensive Care Nurse/Techni estefani ID = [id number] for Katie Cohn POCT-GLUCOSE [id number] 08:37:00 Test Item Value Reference Range Interpretation Comments POC-GLUCOSE METER 105 mg/dL 70-110 : TESTED A T [facility] 6720 ([facility]) (test code = [facility], 1538) 41400: Neonatal Intensive Care Nurse/Techni estefani ID = [id number] for Katie Cohn POCT-GLUCOSE [id number] 17:56:00 Test Item Value Reference Range Interpretation Comments POC-GLUCOSE METER 96 mg/dL 70-110 : TESTED A T [facility] 6720 ([facility]) (test code = [facility], 1538) 33144: Neonatal Intensive Care Nurse/Techni estefani ID = [id number] for TITO CHAVEZ Blood gas, [id number] 17:17:00 Test Item Value Reference Range Interpretation Comments pH, Arterial (test code = 2744-1) 7.32 7.35-7.45 L pCO2, Arterial (test code = 55 35- 45 mmHg H 2018-10) pO2, Arterial (test code = 2703-7) 230 80- 90 mmHg H O2 Sat, Arterial (test code = 99.4 % 96-97 H 6) HCO3, Arterial (test code = 28 mmol/L -29 1959-) Base Excess, Arterial (test code = 0.7 mmol/L -2-3 1925-7) Patient Temperature (test code = 36.0 C 8310-5) FIO2 (test code = 1819) 90 % Lab Interpretation (test code = Abnormal 08880-2) [facility], [id number] 17:17:00 Test Item Value Reference Range Interpretation Comments Calcium, Ion (test code = 1994-3) 1.22 mmol/L 1.12-1.27 pH, Blood (test code = 54116-4) 7.30 [facility] CenterHGB[facility]HCT (H&H)-Stat [id number] 17:17:00 Test Item Value Reference Range Interpretation Comments Hemoglobin (test code = 786-4) 11.4 g/dL 13-16.8 L Hematocrit (test code = 4544-3) 34.0 % 40-50 L Lab Interpretation (test code = Abnormal 98610-5) [facility] Na-Stat [id number] 17:17:00 Test Item Value Reference Range Interpretation Comments Sodium (test code = 2951-2) 134 meq/L 136-145 L Lab Interpretation (test code = Abnormal 55286-9) [facility] CenterBLOOD GAS, [id number] 17:17:00 Test Item Value Reference Range Interpretation Comments PH ARTERIAL (BEAKER) (test code = 7.32 7.35-7.45 L 383) PCO2 ARTERIAL (BEAKER) (test code 55 mmHg 35-45 H = 384) PO2 ARTERIAL (BEAKER) (test code = 230 mmHg 80-90 H 385) O2 SATURATION ARTERIAL (BEAKER) 99.4 % 96.0-97.0 H (test code = 386) HCO3 ARTERIAL (BEAKER) (test code 28 mmol/L 21-29 = 388) BASE EXCESS ARTERIAL (BEAKER) 0.7 mmol/L -2.0-3.0 (test code = 387) PATIENT TEMPERATURE (BEAKER) (test 36.0 C code = 1818) FIO2 (BEAKER) (test code = 1819) 90.0 % SODIUM NA-STAT [id number] 17:17:00 Test Item Value Reference Range Interpretation Comments SODIUM (BEAKER) (test code = 381) 134 meq/L 136-145 L HGB/HCT (H&H) - STAT [id number] 17:17:00 Test Item Value Reference Range Interpretation Comments HEMOGLOBIN (BEAKER) (test code = 11.4 g/dL 13.0-16.8 L 410) HEMATOCRIT (BEAKER) (test code = 34.0 % 40.0-50.0 L 411) CALCIUM, [id number] 17:17:00 Test Item Value Reference Range Interpretation Comments CALCIUM IONIZED (BEAKER) (test 1.22 mmol/L 1.12-1.27 code = 698) PH, BLOOD (BEAKER) (test code = 7.30 1810) Glucose-Stat [id number] 17:16:00 Test Item Value Reference Range Interpretation Comments Glucose (test code = 2345-7) 92 mg/dL 70-110 Lab Interpretation (test code = Normal 20640-9) [facility] CenterPotassium-Stat [id number] 17:16:00 Test Item Value Reference Range Interpretation Comments Potassium (test code = 2823-3) 4.3 meq/L 3.6-5.5 Lab Interpretation (test code = Normal 31401-6) [facility] CenterGLUCOSE-STAT [id number] 17:16:00 Test Item Value Reference Range Interpretation Comments GLUCOSE RANDOM (BEAKER) (test code = 92 mg/dL 70-110 652) POTASSIUM-STAT [id number] 17:16:00 Test Item Value Reference Range Interpretation Comments POTASSIUM (BEAKER) (test code = 4.3 meq/L 3.6-5.5 379) CALCIUM, [id number] 15:59:00 Test Item Value Reference Range Interpretation Comments CALCIUM IONIZED (BEAKER) (test 1.07 mmol/L 1.12-1.27 L code = 698) PH, BLOOD (BEAKER) (test code = 7.48 1810) BLOOD GAS, [id number] 15:59:00 Test Item Value Reference Range Interpretation Comments PH ARTERIAL (BEAKER) (test code = 7.51 7.35-7.45 H 383) PCO2 ARTERIAL (BEAKER) (test code 32 mmHg 35-45 L = 384) PO2 ARTERIAL (BEAKER) (test code = 112 mmHg 80-90 H 385) O2 SATURATION ARTERIAL (BEAKER) 98.7 % 96.0-97.0 H (test code = 386) HCO3 ARTERIAL (BEAKER) (test code 25 mmol/L 21-29 = 388) BASE EXCESS ARTERIAL (BEAKER) 1.6 mmol/L -2.0-3.0 (test code = 387) PATIENT TEMPERATURE (BEAKER) (test 35.0 C code = 1818) FIO2 (BEAKER) (test code = 1819) 50.0 % SODIUM NA-STAT [id number] 15:59:00 Test Item Value Reference Range Interpretation Comments SODIUM (BEAKER) (test code = 381) 133 meq/L 136-145 L HGB/HCT (H&H) - STAT [id number] 15:59:00 Test Item Value Reference Range Interpretation Comments HEMOGLOBIN (BEAKER) (test code = 10.8 g/dL 13.0-16.8 L 410) HEMATOCRIT (BEAKER) (test code = 32.0 % 40.0-50.0 L 411) GLUCOSE-STAT [id number] 15:58:00 Test Item Value Reference Range Interpretation Comments GLUCOSE RANDOM (BEAKER) (test code 101 mg/dL 70-110 = 652) POTASSIUM-STAT [id number] 15:58:00 Test Item Value Reference Range Interpretation Comments POTASSIUM (BEAKER) (test code = 4.1 meq/L 3.6-5.5 379) CALCIUM, [id number] 15:12:00 Test Item Value Reference Range Interpretation Comments CALCIUM IONIZED (BEAKER) (test 1.07 mmol/L 1.12-1.27 L code = 698) PH, BLOOD (BEAKER) (test code = 7.48 1810) BLOOD GAS, [id number] 15:12:00 Test Item Value Reference Range Interpretation Comments PH ARTERIAL (BEAKER) (test code = 7.50 7.35-7.45 H 383) PCO2 ARTERIAL (BEAKER) (test code 33 mmHg 35-45 L = 384) PO2 ARTERIAL (BEAKER) (test code = 154 mmHg 80-90 H 385) O2 SATURATION ARTERIAL (BEAKER) 99.2 % 96.0-97.0 H (test code = 386) HCO3 ARTERIAL (BEAKER) (test code 25 mmol/L 21-29 = 388) BASE EXCESS ARTERIAL (BEAKER) 1.8 mmol/L -2.0-3.0 (test code = 387) PATIENT TEMPERATURE (BEAKER) (test 36.0 C code = 1818) FIO2 (BEAKER) (test code = 1819) 50.0 % SODIUM NA-STAT [id number] 15:12:00 Test Item Value Reference Range Interpretation Comments SODIUM (BEAKER) (test code = 381) 134 meq/L 136-145 L GLUCOSE-STAT [id number] 15:12:00 Test Item Value Reference Range Interpretation Comments GLUCOSE RANDOM (BEAKER) (test code = 64 mg/dL 70-110 L 652) HGB/HCT (H&H) - STAT [id number] 15:12:00 Test Item Value Reference Range Interpretation Comments HEMOGLOBIN (BEAKER) (test code = 10.9 g/dL 13.0-16.8 L 410) HEMATOCRIT (BEAKER) (test code = 32.0 % 40.0-50.0 L 411) POTASSIUM-STAT [id number] 15:10:00 Test Item Value Reference Range Interpretation Comments POTASSIUM (BEAKER) (test code = 4.2 meq/L 3.6-5.5 379) SARS-CoV2/RT-PCR (Asymptomatic ONLY)2019-10-18 09:21:00 Test Item Value Reference Range Interpretation Comments SARS-COV2/RT-PCR Negative Not Detected, (test code = Negative, See 82922-9) external report for linked test SARS-COV-2 [facility] PERFORMING LAB (test code = 49715-9) MITCHELL (test code = Negative results do not MITCHELL) preclude SARS-CoV-2 infection and should not be used as [...] of the Act. Fact Sheet for Healthcare Providers:https://www.[employer]anza.[employer]/Documents/Xper t%20Xpress%20SARS%20CoV- 2/Fact%20Sheets/302-7782 %63ISJB-GIJ-0%20HEALTHCA RE%20PROVIDERS%20FACT%20 SHEET.pdf Fact Sheet for Healthcare Patients:https://www.[employer]/Documents/Xpert %20Xpress%20SARS%20CoV-2 /Fact%20Sheets/302-3801% 53SKNA-YOL-9%20PATIENT%2 0FACT%20SHEET.pdf Performing Laboratory:[facility] [place] [address] [facility]ARS-[facility]OV2/[facility] ([facility] RE[facility])2019-10-18 09:21:00 Test Item Value Reference Range Interpretation Comments SARS-COV2/RT-PCR (test code Negative Not Detected, Negative, = 8868058) See external report for linked test SARS-COV-2 PERFORMING LAB [facility] (test code = 0415802) Negative results do not preclude SARS-CoV-2 infection and should not be used as the sole basis for patient management decisions. Negative results must be combined with clinical observations, patient history, and epidemiological information. A false negative result may occur if a specimen is improperly collected, transported or handled.The limit of detection for this assay is 250 copies/mL.This SARS CoV-2 test is a rapid, real-time RT-PCR test intended for the qualitative detection of nucleic acid from SARS-CoV-2 in a nasopharyngeal swab specimen collected from individuals suspected of COVID-19 by their healthcare provider.This test has not been Food and Drug [...] is revoked under Section 564(g) of the Act.Fact Sheet for Healthcare Pro viders:https://www.[employer]/Documents/Xpert%20Xpress%20SARS%20CoV-2/Fact%20Sh eets/302-3802%69MMMQ-XXY-9%20HEALTHCARE%20PROVIDERS%20FACT%20SHEET.pdfFact Sheet for Healthcare Patients:https://www.[employer]/Documents/Xpert%20Xpress%20SARS%20CoV-2/Fact%20Sheets/302-3801%20SARS-COV -2%20PATIENT%20FACT%20SHEET.pdfPerforming Laboratory:[facility], [place] [address]Qiwg and screen, [id number] 08:47:00 Test Item Value Reference Range Interpretation Comments ABO/RH AUTOMATED (BEAKER) (test O POSITIVE code = 2260) Ab Scrn (test code = 890-4) NEGATIVE [facility] CenterBUN and [id number] 08:45:00 Test Item Value Reference Range Interpretation Comments BUN (test code = 58 mg/dL 7-21 H 3094-0) Creatinine (test code 7.72 mg/dL 0.57-1.25 H = 2160-0) BUN/Creatinine ratio 8 Unable to (test code = 3097-3) calcula te due to non-numeric results EGFR (test code = 7 mL/min/1.73 [place] [address]-4) NOT ACCURATE CREATININE CLEARANCE IN PREDICTING GLOMERULAR FILTRATION RATE . ESTIMATED GFR I S NOT APPLICABLE FOR DIALYSIS PATIENTS. MITCHELL (test code = MITCHELL) Neonatal Intensive Care Nurse ID - [id number] Lab Interpretation Abnormal (test code = 77551-8) [facility] CenterBUN AND CREATININE [id number] 08:45:00 Test Item Value Reference Range Interpretation Comments BLOOD UREA NITROGEN 58 mg/dL 7-21 H (BEAKER) (test code = 354) CREATININE (BEAKER) 7.72 mg/dL 0.57-1.25 H (test code = 358) BUN/CREAT RATIO 8 Unable to ca lculate (BEAKER) (test code due to n on-numeric = [id number]) results EGFR (BEAKER) (test 7 mL/min/1.73 ESTIMAT ED GFR IS code = 1092) sq m NOT ACCURATE CREATININE CLEARANCE IN PREDICTING GLOMERULAR FILTRATION RATE . ESTIMATED GFR I S NOT APPLICABLE FOR DIALYSIS PATIEN TS. Neonatal Intensive Care Nurse ID - RIIMCTMPpjeeielzrse4443-06-22 08:43:00 Test Item Value Reference Range Interpretation Comments Sodium (test code = 137 meq/L 372-916 6559-2) Potassium (test code = 5.1 meq/L 3.5-5.1 2823-3) Chloride (test code = 100 meq/L 98-107 2075-0) CO2 (test code = 2028-9) 23 meq/L 22-29 MITCHELL (test code = MITCHELL) Neonatal Intensive Care Nurse ID - ROSIANG Lab Interpretation (test Normal code = 92429-4) [facility] CenterGlucose2020-08-13 08:43:00 Test Item Value Reference Range Interpretation Comments Glucose (test code = 157 mg/dL 70-105 H 2345-7) MITCHELL (test code = MITCHELL) Neonatal Intensive Care Nurse ID - ROSIANG Lab Interpretation (test Abnormal code = 45020-7) [facility] CenterELECTROLYTES2020-08-13 08:43:00 Test Item Value Reference Range Interpretation Comments SODIUM (BEAKER) (test code = 381) 137 meq/L 136-145 POTASSIUM (BEAKER) (test code = 5.1 meq/L 3.5-5.1 379) CHLORIDE (BEAKER) (test code = 382) 100 meq/L 98-107 CO2 (BEAKER) (test code = 355) 23 meq/L 22-29 Neonatal Intensive Care Nurse ID - [id number] 08:43:00 Test Item Value Reference Range Interpretation Comments GLUCOSE RANDOM (BEAKER) (test code 157 mg/dL 70-105 H = 652) Neonatal Intensive Care Nurse ID - CPXYIQSXfhjaftgvl1835-53-39 08:16:00 Test Item Value Reference Range Interpretation Comments Hemoglobin (test code = 11.1 13.7- 17.5 GM/DL L 786-4) MITCHELL (test code = MITCHELL) Neonatal Intensive Care Nurse ID - [id number] Lab Interpretation (test Abnormal code = 46986-2) [facility] CenterPlatelet [id number] 08:16:00 Test Item Value Reference Range Interpretation Comments Platelets (test code = 259 150- 450 K/CU MM 777-3) MITCHELL (test code = MITCHELL) Neonatal Intensive Care Nurse ID - [id number] Lab Interpretation (test Normal code = 11518-8) [facility] CenterHEMOGLOBIN2020-08-13 08:16:00 Test Item Value Reference Range Interpretation Comments HEMOGLOBIN (BEAKER) (test code = 11.1 GM/DL 13.7-17.5 L 410) Neonatal Intensive Care Nurse ID - [id number] [id number] 08:16:00 Test Item Value Reference Range Interpretation Comments PLATELET COUNT (BEAKER) (test 259 K/CU MM 150-450 code = 756) Neonatal Intensive Care Nurse ID - [id number]-GLUCOSE [id number] 06:26:00 Test Item Value Reference Range Interpretation Comments POC-GLUCOSE METER 129 mg/dL 70-110 H : TESTED A T [facility] 6720 (BEAKER) (test code [place], = 1538) 22552: Neonatal Intensive Care Nurse/Techni estefani ID = [id number] for JORD AN, LACRYSTAL BUN AND CREATININE [id number] 10:25:00 Test Item Value Reference Range Interpretation Comments BLOOD UREA NITROGEN 77 mg/dL 7-21 H (BEAKER) (test code = 354) CREATININE (BEAKER) 11.07 mg/dL 0.57-1.25 H (test code = 358) BUN/CREATININE RATIO 7.0 For a n ormal (BEAKER) (test code individu al on a = 1800) normal diet, th e reference inter anthony for the mass ra chuck ranges between 12:1 and 20:1 (BUN i n mg/dL/creatinin e in mg/dL) EGFR (BEAKER) (test 5 mL/min/1.73 ESTIMAT ED GFR IS code = 1092) sq m NOT ACCURATE CREATININE CLEARANCE IN PREDICTING GLOMERULAR FILTRATION RATE . ESTIMATED GFR I S NOT APPLICABLE FOR DIALYSIS PATIEN TS. Neonatal Intensive Care Nurse ID - WFVLKLBHJFNDVUW4222-51-80 10:23:00 Test Item Value Reference Range Interpretation Comments SODIUM (BEAKER) (test code = 381) 140 meq/L 136-145 POTASSIUM (BEAKER) (test code = 4.5 meq/L 3.5-5.1 379) CHLORIDE (BEAKER) (test code = 382) 101 meq/L 98-107 CO2 (BEAKER) (test code = 355) 26 meq/L 22-29 Neonatal Intensive Care Nurse ID - [id number] 10:23:00 Test Item Value Reference Range Interpretation Comments GLUCOSE RANDOM (BEAKER) (test code 157 mg/dL 70-105 H = 652) Neonatal Intensive Care Nurse ID - BCHYYBNYRXHAG4032-34-72 10:11:00 Test Item Value Reference Range Interpretation Comments HEMOGLOBIN (BEAKER) (test code = 12.2 GM/DL 13.7-17.5 L 410) Neonatal Intensive Care Nurse ID - [id number] culture + smear (non-sputum)2019-08-01 12:08:00 Test Item Value Reference Range Interpretation Comments Result (test code = No acid-fast bacilli 6463-4) isolated in 42 days AFB Smear (test code = No acid fast bacilli 40623-0) seen [facility] CenterAF[facility] + SMEAR (NON-SPUTUM)2019-08-01 12:08:00 Test Item Value Reference Range Interpretation Comments CULTURE (BEAKER) (test No acid-fast bacilli code = 1095) isolated in 42 days AFB SMEAR (BEAKER) No acid fast bacilli (test code = 994) seen Fungus culture + [id number] 17:59:00 Test Item Value Reference Range Interpretation Comments Result (test code = No fungus isolated in 6463-4) 28 days Fungus Smear (test No fungal elements seen code = 1406) [facility] CenterFUNGUS CULTURE + [id number] 17:59:00 Test Item Value Reference Range Interpretation Comments CULTURE (BEAKER) (test No fungus isolated in code = 1095) 28 days FUNGUS SMEAR (BEAKER) No fungal elements seen (test code = 1406) Prepare Leuko-Red [id number] 23:54:00 Test Item Value Reference Range Interpretation Comments CROSSMATCH (test code = 2264) COMPATIBLE Unit ABO (test code = O Pos 0978172) UNIT NUMBER (test code = [id number] 934-0) Status (test code = 4280486) [place]_TIMEINCHART Blood Bank Product (test code RED BLOOD CELLS = 2263) PRODUCT CODE (test code = Y4412W30 933-2) [facility] CenterPOCT-GLUCOSE [id number] 12:17:00 Test Item Value Reference Range Interpretation Comments POC-GLUCOSE METER 159 mg/dL 70-110 H : TESTED A T [facility] (BEAKER) (test code = [place], 1538) [address]: Neonatal Intensive Care Nurse/Techni estefani ID = [id number] for BLESSING TUTTLE HEMODIALYSIS [id number] 11:56:42SaIzaiah Alcocer, SUNITA 06/27/2019 11:57 AMHD x [...] HEPBIGM, HEPBCAB, HBEAG, HEPCABNo results found for: [id number] Profile: No results found for: PROTIME, INR, PTTCHI [facility]PO[facility] [id number] 08:03:00 Test Item Value Reference Range Interpretation Comments POC-GLUCOSE METER 119 mg/dL 70-110 H : TESTED A T [facility] 6720 (BEAKER) (test code = DASIA Jose [facility], 1538) 22021: Neonatal Intensive Care Nurse/Techni estefani ID = [id number] for Sa arabella WellerSamanleo Isael BASIC METABOLIC [id number] 05:28:00 Test Item Value Reference Range Interpretation Comments SODIUM (BEAKER) 132 meq/L 136-145 L (test code = 381) POTASSIUM (BEAKER) 4.4 meq/L 3.5-5.1 (test code = 379) CHLORIDE (BEAKER) 94 meq/L 98-107 L (test code = 382) CO2 (BEAKER) (test 28 meq/L 22-29 code = 355) BLOOD UREA NITROGEN 48 [...] S NOT APPLICABLE FOR DIALYSIS PATIEN TS. Neonatal Intensive Care Nurse ID - JAQUELINE ChristensenBOsoydzqmk5362-55-41 05:26:00 Test Item Value Reference Range Interpretation Comments Magnesium (test code = 2.5 mg/dL 1.6-2.6 47721-6) MITCHELL (test code = MITCHELL) Neonatal Intensive Care Nurse ID - JAQUELINE M Lab Interpretation (test Normal code = 76435-1) [facility] CenterPhosphorus2020-04-22 05:26:00 Test Item Value Reference Range Interpretation Comments Phosphorus (test code = 6.1 mg/dL 2.3-4.7 H 2777-1) MITCHELL (test code = MITCHELL) Neonatal Intensive Care Nurse ID - JAQUELINE M Lab Interpretation (test Abnormal code = 60193-5) [facility] CenterPHOSPHORUS2020-04-22 05:26:00 Test Item Value Reference Range Interpretation Comments PHOSPHORUS (BEAKER) (test code = 6.1 mg/dL 2.3-4.7 H 604) Neonatal Intensive Care Nurse ID - JAQUELINE CHRISTENSENHLLWZKUZAP3238-23-78 05:26:00 Test Item Value Reference Range Interpretation Comments MAGNESIUM (BEAKER) (test code = 2.5 mg/dL 1.6-2.6 627) Neonatal Intensive Care Nurse ID Benjie PARSONS [facility] W/PLT COUNT & AUTO [id number] 05:12:00 Test Item Value Reference Range Interpretation [...] PERCENT (BEAKER) (test code = 2801) POCT-GLUCOSE [id number] 21:05:00 Test Item Value Reference Range Interpretation Comments POC-GLUCOSE METER 250 mg/dL 70-110 H : TESTED Vikas T [facility] 6720 (BEAKER) (test code = [place], 1538) 779[address]: Neonatal Intensive Care Nurse/Techni estefani ID = [id number] for JOLENE HOLLAND SERENA POCT-GLUCOSE [id number] 16:53:00 Test Item Value Reference Range Interpretation Comments POC-GLUCOSE METER 217 mg/dL 70-110 H : TESTED A T [facility] 6720 (BEAKER) (test code = [facility], 1538) 64622: Neonatal Intensive Care Nurse/Techni estefani ID = [id number] for ENOCH NTER, ESTEFANYWITHA POCT-GLUCOSE [id number] 11:50:00 Test Item Value Reference Range Interpretation Comments POC-GLUCOSE METER 208 mg/dL 70-110 H : TESTED A T [facility] 6720 (BEAKER) (test code = [facility], 1538) 89315: Neonatal Intensive Care Nurse/Techni estefani ID = [id number] for ENOCH NTER, ESTEFANYWITHA ANAEROBIC [id number] 10:57:00 Test Item Value Reference Range Interpretation Comments CULTURE (BEAKER) (test code A 4+ Prevotella bivia = 1095) POCT-GLUCOSE [id number] 07:24:00 Test Item Value Reference Range Interpretation Comments POC-GLUCOSE METER 231 mg/dL 70-110 H : TESTED A T [facility] 6720 (BEAKER) (test code = [facility], 1538) 21845: Neonatal Intensive Care Nurse/Techni estefani ID = [id number] for ENOCH NTER, HIWITHA BASIC METABOLIC [id number] 04:18:00 Test Item Value Reference Range Interpretation [...] S NOT APPLICABLE FOR DIALYSIS PATIEN TS. Neonatal Intensive Care Nurse ID - BASSEM GKAHWMUZMPQ1637-05-94 04:17:00 Test Item Value Reference Range Interpretation Comments PHOSPHORUS (BEAKER) (test code = 5.1 mg/dL 2.3-4.7 H 604) Neonatal Intensive Care Nurse ID - BASSEM [id number] 04:17:00 Test Item Value Reference Range Interpretation Comments MAGNESIUM (BEAKER) (test code = 2.4 mg/dL 1.6-2.6 627) Neonatal Intensive Care Nurse ID - BASSEM WCBC W/PLT COUNT & AUTO [id number] 04:17:00 Test Item Value Reference Range Interpretation [...] PERCENT (BEAKER) (test code = 2801) POCT-GLUCOSE [id number] 00:03:00 Test Item Value Reference Range Interpretation Comments POC-GLUCOSE METER 245 mg/dL 70-110 H : [facility] T [facility] 6720 [facility] (test code = [facility], [facility]) 66078: Neonatal Intensive Care Nurse/Techni estefani ID = [id number] for RENEE FRANCK WHITE POCT-GLUCOSE [id number] 21:18:00 Test Item Value Reference Range Interpretation Comments POC-GLUCOSE METER 252 mg/dL 70-110 H : TESTED A T [facility] 6720 (BEAKER) (test code = [facility], [facility]8) 25491: Neonatal Intensive Care Nurse/Techni estefani ID = [id number] for DA VIS, KAVYA POCT-GLUCOSE [id number] 16:53:00 Test Item Value Reference Range Interpretation Comments POC-GLUCOSE METER 175 mg/dL 70-110 H : TESTED A T [facility] 6720 (BEAKER) (test code = [facility], [facility]8) 97627: Neonatal Intensive Care Nurse/Techni estefani ID = [id number] for Do minguez, Isaías POCT-GLUCOSE [id number] 13:58:00 Test Item Value Reference Range Interpretation Comments POC-GLUCOSE METER 191 mg/dL 70-110 H : TESTED A T [facility] 6720 (BEAKER) (test code = [facility], [facility]) 49446: Neonatal Intensive Care Nurse/Techni estefani ID = [id number] for Do minguez, Isaías POCT-GLUCOSE [id number] 11:18:00 Test Item Value Reference Range Interpretation Comments POC-GLUCOSE METER 88 mg/dL 70-110 : TESTED A T [facility] 6720 (BEAKER) (test code = [place], 1538) 67887: Neonatal Intensive Care Nurse/Techni estefani ID = [id number] for CORNELIUS SANDY HEMODIALYSIS [id number] 08:18:33Melody Meza RN 06/25/2019 11:44 AMTolerated HD [...] HEPBIGM, HEPBCAB, HBEAG, HEPCABNo results found for: [id number] Profile: No results found for: PROTIME, INR, PTTCHI [facility] CenterPO[facility] [id number] 07:59:00 Test Item Value Reference Range Interpretation Comments POC-GLUCOSE METER 112 mg/dL 70-110 H : TESTED A T [facility] 6720 (BEAKER) (test code = [place], 1538) 6[address]35: Neonatal Intensive Care Nurse/Techni estefani ID = [id number] for CORNELIUS MAO BASIC METABOLIC [id number] 07:35:00 Test Item Value Reference Range Interpretation [...] S NOT APPLICABLE FOR DIALYSIS PATIEN TS. Neonatal Intensive Care Nurse ID Benjie BOSCH OLMBGXZPZLA8789-87-64 07:27:00 Test Item Value Reference Range Interpretation Comments PHOSPHORUS (BEAKER) (test code = 7.1 mg/dL 2.3-4.7 H 604) Neonatal Intensive Care Nurse ID - DANITZA [id number] 07:27:00 Test Item Value Reference Range Interpretation Comments MAGNESIUM (BEAKER) (test code = 2.5 mg/dL 1.6-2.6 627) Neonatal Intensive Care Nurse ID - DANITZA LCBC W/PLT COUNT & AUTO [id number] 06:36:00 Test Item Value Reference Range Interpretation [...] PERCENT (BEAKER) (test code = 2801) POCT-GLUCOSE [id number] 21:42:00 Test Item Value Reference Range Interpretation Comments POC-GLUCOSE METER 171 mg/dL 70-110 H : TESTED A T [facility] 6720 (BEAKER) (test code = [facility], 1538) [id number]: Neonatal Intensive Care Nurse/Techni estefani ID = [id number] for DA KAVYA SAM POCT-GLUCOSE [id number] 16:53:00 Test Item Value Reference Range Interpretation Comments POC-GLUCOSE METER 219 mg/dL 70-110 H : TESTED A T [facility] 6720 (BEAKER) (test code = [facility], 1538) [id number]: Neonatal Intensive Care Nurse/Techni estefani ID = [id number] for OR DALE URRUTIA POCT-GLUCOSE [id number] 12:15:00 Test Item Value Reference Range Interpretation Comments POC-GLUCOSE METER 181 mg/dL 70-110 H : TESTED A T [facility] 6720 (BEAKER) (test code = [facility] [facility], 1538) [id number]: Neonatal Intensive Care Nurse/Techni estefani ID = [id number] for OR RENAN, DALE POCT-GLUCOSE [id number] 08:04:00 Test Item Value Reference Range Interpretation Comments POC-GLUCOSE METER 125 mg/dL 70-110 H : TESTED A T [facility] 6720 (BEAKER) (test code = [facility], 1538) 93006: Neonatal Intensive Care Nurse/Techni estefani ID = [id number] for OR RENAN, DALE BASIC METABOLIC [id number] 05:56:00 Test Item Value Reference Range Interpretation [...] S NOT APPLICABLE FOR DIALYSIS PATIEN TS. Neonatal Intensive Care Nurse ID - DANITZA [id number] 05:16:00 Test Item Value Reference Range Interpretation Comments PHOSPHORUS (BEAKER) (test code = 5.7 mg/dL 2.3-4.7 H 604) Neonatal Intensive Care Nurse ID - DANITZA [id number] 05:16:00 Test Item Value Reference Range Interpretation Comments MAGNESIUM (BEAKER) (test code = 2.4 mg/dL 1.6-2.6 627) Neonatal Intensive Care Nurse ID - PIAYA LCBC W/PLT COUNT & AUTO [id number] 05:04:00 Test Item Value Reference Range Interpretation [...] PERCENT (BEAKER) (test code = 2801) POCT-GLUCOSE [id number] 21:56:00 Test Item Value Reference Range Interpretation Comments POC-GLUCOSE METER 182 mg/dL 70-110 H : TESTED A T [facility] 6720 (BEAKER) (test code = [facility], 1538) 15673: Neonatal Intensive Care Nurse/Techni estefani ID = [id number] for Hi ll, Cynthia POCT-GLUCOSE [id number] 17:09:00 Test Item Value Reference Range Interpretation Comments POC-GLUCOSE METER 260 mg/dL 70-110 H : TESTED A T [facility] 6720 (BEAKER) (test code = [facility], 1538) 794[address]: Neonatal Intensive Care Nurse/Techni estefani ID = [id number] for OR DALE URRUTIA POCT-GLUCOSE [id number] 12:02:00 Test Item Value Reference Range Interpretation Comments POC-GLUCOSE METER 244 mg/dL 70-110 H : TESTED A T [facility] 6720 (BEAKER) (test code = [facility], 1538) 35168: Neonatal Intensive Care Nurse/Techni estefani ID = [id number] for OR DALE URRUTIA BASIC METABOLIC [id number] 08:22:00 Test Item Value Reference Range Interpretation [...] S NOT APPLICABLE FOR DIALYSIS PATIEN TS. Neonatal Intensive Care Nurse ID - [id number] 07:57:00 Test Item Value Reference Range Interpretation Comments PHOSPHORUS (BEAKER) (test code = 5.4 mg/dL 2.3-4.7 H 604) Neonatal Intensive Care Nurse ID - [id number] 07:57:00 Test Item Value Reference Range Interpretation Comments MAGNESIUM (BEAKER) (test code = 2.3 mg/dL 1.6-2.6 627) Neonatal Intensive Care Nurse ID - LMPOCT-GLUCOSE [id number] 07:55:00 Test Item Value Reference Range Interpretation Comments POC-GLUCOSE METER 154 mg/dL 70-110 H : TESTED A T [facility] 6720 (BEAKER) (test code = [facility], 1538) 61698: Neonatal Intensive Care Nurse/Techni estefani ID = [id number] for OR RENAN DALE CBC W/PLT COUNT & AUTO [id number] 06:10:00 Test Item Value Reference Range Interpretation [...] (BEAKER) (test code = 2801) Vancomycin level, [id number] 06:06:00 Test Item Value Reference Range Interpretation Comments Vancomycin Rm (test 15.8 ug/mL code = 48239-9) MITCHELL (test code = Reference Range: No MITCHELL) NormalsOperator ID - LM [facility] Center[facility]ANCOMYCIN LEVEL, [id number] 06:06:00 Test Item Value Reference Range Interpretation Comments VANCOMYCIN RANDOM (BEAKER) (test 15.8 ug/mL code = 523) Reference Range: No NormalsOperator ID - LMPOCT-GLUCOSE [id number] 21:02:00 Test Item Value Reference Range Interpretation Comments POC-GLUCOSE METER 231 mg/dL 70-110 H : TESTED A T [facility] 6720 (BEAKER) (test code = [facility], 1538) 33594: Neonatal Intensive Care Nurse/Techni estefani ID = [id number] for WESTLEY RONDON POCT-GLUCOSE [id number] 17:06:00 Test Item Value Reference Range Interpretation Comments POC-GLUCOSE METER 227 mg/dL 70-110 H : TESTED A T [facility] 6720 (backstitch) (test code = [facility], 1538) 7[address]: Neonatal Intensive Care Nurse/Techni estefani ID = [id number] for OR DALE URRUTIA POCT-GLUCOSE [id number] 12:13:00 Test Item Value Reference Range Interpretation Comments POC-GLUCOSE METER 147 mg/dL 70-110 H : TESTED A T [facility] 6720 (backstitch) (test code = [facility], 1538) 44526: Neonatal Intensive Care Nurse/Techni estefani ID = [id number] for OR DALE URRUTIA HEMODIALYSIS [id number] 12:02:34Izaiah Brown RN 06/22/2019 12:03 PMHD x 3.5 hrs. UF net removed 2.5L. Tolerated tx well. No complaints, not in distress. Report given to primary RN Michelle. Lab Results Component Value Date WBC 15.3 (H) 06/22/2019 HGB 7.8 (L) 06/22/2019 HCT 25.9 (L) 06/22/2019 MCV 94.9 (H) 06/22/2019 PLT 3787006/22/2019 Lab Results Component Value Date GLUCOSE 133 (H) 06/22/2019 CALCIUM 7.9 (L) 06/22/2019 NA 132 (L) 06/22/2019 K 4.5 06/22/2019 CO2 25 06/22/2019 CL 94 (L) 06/22/2019 BUN 56 (H) 06/22/2019 CREATININE 9.79 (H) 06/22/2019 Lab Results Component Value Date HEPBSAG Nonreactive 06/15/2019 ]No results found for: HEPAIGM, HEPBIGM, HEPBCAB, HBEAG, HEPCABNo results found for: [id number] Profile: No results found for: PROTIME, INR, PTTCHI [facility] [id number] 11:39:00 Test Item Value Reference Range Interpretation Comments POC-GLUCOSE METER 138 mg/dL 70-110 H : TESTED A T [facility] 6720 (backstitch) (test code = [facility], 1538) 907[address]: Neonatal Intensive Care Nurse/Techni estefani ID = [id number] for Izaiah Barber Tissue [id number] 09:01:00 Test Item Value Reference Range Interpretation Comments Case Report (test code Surgical Pathology = 104) Report Case: [id number] Authorizing Provider: Star Cloud DPM Collected: 06/19/2019 11:18 AM Ordering Location: [facility] Received: 06/19/2019 11:51 AM SERVICES Pathologist: Jonathan Hutchison MD Specimen: Foot, Right, right forefoot DIAGNOSIS (test code = [id number] 3220) uZzEwMzNcZnRuYmpcdWMxIH baepNqQMcot2LbH6XuMuJlR FxhbnNpXGRlZmxhbmcxMDMz MEC2meJkQHEpCDosUHWzHBo bAw7hjBWmmTawDzSwXMVfv8 mwtdUFlrdqmPa1e6rfJZOdN nA8eMMyEYgyD4qcmwRoxYOk BDTpNBy0wE47OBOwgI1jxZC bLZmpbsFgLnF5PKjvRMCmTh Z5VCHbbJYqNQZiX3bwIBPiI HbfGBGqTNvnlODvCIB2dGik i0A1vQEkbEMtoLdzAqBjHbY jDOGAf7RcOUu6lDojZ8UsOE QnVbJ3tTTpMHLaCBanXPAvR DCkwsM1rH33LWcohdX0sPXj f3Nnr29xe976vX0qvXYxOQP 8OEXpRZZjwTTtYSPwLGZ9JO QaiHNlK6g4ApZmsRTvX2Z1E fVnjOIlM9X0VrFknPJcQ0M2 CnQphLFxSIBqcJEvXe5qtAX wsXXvve3tye29GBH0k9NjgX nxPSF5IGF1FqRzHf7uxFCeH YInNA6iByEiySXoFDCqxq24 gEgaSObkktUegT8mTrEiUHV oeOSeHQGoDN6buLNcDPRizF 5ucmxjXHBnYnJkcmhlYWRcc QlyaiLtKu2ekKmuKNB5HNzb E3ruzD3yIhS8YLwfG1pqjY0 eQAo5TBsafLY2PXTscB0eLT 4pzywha2meYtFfYT9aimhkk 1xvNoGmEW6akcf6y2jxUaFu WX5leqlah0evKmBtIQxgMNK vrbtlTINyv6PrtsoaYJSha4 FnV0IyuWpjU33lxVrhY91sU MVjvIoreQ7gxYbtwJ5aKmNh ZnMyNFxxbFxwbGFpblxmMVx mczIwXGxhbmcxMDMzXGhpY2 abWlGlBJKklAcgMKmyt0BnX GYxXGZzMjAgUEFSVCBBIFJJ L7oPPKPJO3TpVNIQOF1GKUI UQVRBUlNBTCBBTVBVVEFUSU 5NSzmqTKAvD7AWA6EAAv0MC lWKQFLPS5AAEzUDDpDLI7qR HXUWWGDJL8WRPNZJC3EYTH3 ccGFyIFVOREVSTFlJTkcgQU NXZNYeDI8WYWCHJg9XNBSmK 1FJLR5GPLBFNMCUXx6xqCCu XLFWXIWNIoDBJ3BGBPTMLP1 JUKTDADATYMEPF96yQXUsfz OTO16OAIXIZNHRI5WCBNYQR 8RHEVZNIGHVKD8NOZWYHWSD ShGBDZUYWV5hYNYvfa69ZTZ 8PgFyh1A4TLJ0FHNxANDio6 lcZGVmbGFuZzEwMzNcZnRuY nnnaSGkMLGeWoSfw0vif395 pARli2hdHQOvBdZ4aGAjHOF mkEFsJ759INGqIEhyh5uto2 VuDUHezYPsn2S9KWEVsrlby Za2tFufG87kg2Z7EqajR6kj PMBuHPBtY4NaDQ2yRFZuIfb 2KYN4QTK7KCNyLLKvS7WqQX 2sGHTluFFoEBb4i8wqqUjuO VAzSNW9q0cbDBlnemBbKQ7g yw4ndWj2f3pnmsBfZBNsEHS zhXBYGGJbX7JguKthDx4ffR i4bFncHdliIZR8Qzz8AY2uf n46gac6xGpsAQRjydgsYsM1 EHuoTQLmckwxXRp2KUpeHWQ meYH3VLYixPWhY7BjJSGuQP 2elhw1DXY6RFmrSTPcTtH9S UUtnXKaOVXhlIsdVXrlm820 NVL2DqHyHV4aP5Ndx8X2cI6 maXRcZGVmdGFiNzIwXGZvcm 6vhUErAYtiv4AqAAG1jfG9l ZDuqHDuJGWmMhP2ZPkcTA9p ki76WNFsSOP2ne7zjNAmdFx bkhNxeGSoAAtgS8UiYDObr4 61IQRsW8ZgKSNbu6F7bfSsJ oVfPJXapYN6rnJ8GIIfWL7l lhewp2kyCKuiPQdtSQGyowA 7igO4RVGmgUYoQ2NqkC8mNU ZiTZ6zgtiuo2mxYUH2KPouU BLaZXF0QwGoYXWin5Mvllx2 MfRrm6CxySJnJQfdF70yp96 9ULXppyVyC5caxQCpetlfyU PpyrnhCVtfpgY1VMQtFUimk pljYAVeUEepB9eyIhTmFSEi iHcxBOhob5XgFNDuAMAiKjJ hdECsXFVrYpq0LAYmwMAvWH UpSaAjX1fspiowNnSJMLGqy 2rhA6ktmGDAsRBvG2KwZIzb llBrMAkiKTxnIIK6ZST9Ip2 2KyN3ZFWywn76 CPT Code(s) (test code s3qilKLqOULrcTJbXmYgCFF = 3357) bCWPgg3znZCLxlAWfCgArUc NcZnRuYmpcdWMxXGRlZmYwe 8etc455eTQog2oxYAFyKuP3 aUUqOFTlkKMzM877i0wuh5q asoKorSW0GDWjVJT8QRlkfx KfkyE9BQfyfQJuBmW5URklc tXrJLhcjjSnopCuIdb4CTQg G277XRY1sLkfk3zfHSC7JTO iQVJbXnMpCh1gtPVzM660JK DyNXQAXFPnlSz5QUQynnZpd fVgjAFEd620B421d0zsAFRh ikArkGfKjwtbs1niN171OWO hcGVydzEyMjQwXHBhcGVyaD C6KKZtYE3rpgjxIvJoEU3hs tqyHhGrDP7xvgm1XiUjDF4y cmdiNzIwXGhlYWRlcnkwXGZ ov2SflnqkLY8mA4Zmq5N1aA 9maXRcZGVmdGFiNzIwXGZvc n0ixGJlHNunn5CtUQW3ogF9 rLHfiCZfLGPaQY76Nnpby7C iNswhIQO3MFOsprAqu2Crt2 xfLcEgitTeL9xnH0IsHASgP OCzTWHtUgHzymKqu4Jlc2Db lCFbbLh3y3gpZMWmDWQzsWz wn6vkHPO9SBLzN0R6bIKry8 mtQGdbCGBucKC9jdehQYqhK GZszyW7jgenBDjrIWLthGV0 dbquCWayRZUbBjO0ropiQQm bRLLkVPQ2HIuyl304MXU8SB xzYmtwYWdlXHBnbmNvbnRcc GduZGVjXHBsYWluXHBsYWlu XGYwXGZzMjRccWxccGxhaW5 jMwAqZbKpGEfdNY7hRTAzN1 jocPMdCYFaBIOxD2ojIzOml G7nvSibNFlyomXdQMo9HfP1 ZTA8PKWhBAkbSNT1 CLINICAL HISTORY (test c0yjpCOkAEIrkVNpQlWfAZY code = 3356) fCINhx3daXTZmxDYcUaBjFo NcZnRuYmpcdWMxXGRlZmYwe 2isx829eSPar4jpBJNzQgB1 pSOxCVTxzDSbT503c3jkz4i sxlKohLY3ZTQwXKN0NMekoc SpwpD2TFmpaSGeEqY3SHree rZsEGmpwnAvwxHlLep6ATGg L236RJL1eDcpc2pkMVN5JFC iNVJsPmWuYn7wjGLcT556JC OnLMTLGOGbkTx6FTDdukBps rXlzNGZk450N601o5gqLFIt kfEirLcHbaarp3kuM370RYG hcGVydzEyMjQwXHBhcGVyaD C9MYYpAT3akuquWnBzPE6dk sfwWqYbXI3kllj9PeQaYG4s cmdiNzIwXGhlYWRlcnkwXGZ lt8GkupstRM8jN4Lwm4Z9gU 9maXRcZGVmdGFiNzIwXGZvc s5pePDzHWqtj5HqDQP7ywH6 kHXiaYEoZQDnDQ90Ocqta3Z sGgokSIK2EKDcxpFfk8Tiu7 vgJjSdfdQoO8dvF3OjJMFhM OZhGPLsNkDkawVno7Nhv2Nw lTQfaZw6a8dxVWWbYIJxcIv zf9szJFJ1NZFpH9R3jZAxa1 ndBMyjBZRheEA6tjbwRRpwO EFdagN3rqnaBTpsVPXuzAE3 lcmvYWyaDZQtIbB3ynlyQJj iCETaJCC0EJrtq323PSC0PT xzYmtwYWdlXHBnbmNvbnRcc GduZGVjXHBsYWluXHBsYWlu XGYwXGZzMjRccWxccGxhaW5 qLxUdKhKdXAraAU5yOQWjD7 gnnJEaYBJgBIWuR7pnHwJhg F7rfGbfZDhfvvLgHMZtBG0h MXDkAMsau7YvzhouLTxzoms zNF5qFSNpr79kXNQgoQ5xDY zmvK3fVQ7rASQbE0x8BMuyK WxccGFyfQ== SPECIMEN SOURCE (test m5piuATbPBEvpEGaXbHlMNV code = 3377) fHQTik5lgMHDevBXkCqCbEu NcZnRuYmpcdWMxXGRlZmYwe 4zdj148oNIpr8yvASGyYfN8 kDFgXXLrgKInY852v6kax0t tilSzqOL1YRBsHVJ4PGcfag SiidT6NBvaoBKrLlB8NVrfj dThGWlybpNfqfBnFky8FSZs K010YSL3fUlpc6hlUWJ6TXQ fIHOnNjHySs1inEJhL073LP ClGRSZNYBenQz1UKUfmrMvn tWnkAIIp729P066m2ilIAVw vlJwmXsIztgvs0uuO033QWP hcGVydzEyMjQwXHBhcGVyaD X3AUMzHX6rhbfeHnBdFA8df uliApToOK9bepx9ElNuRB1g cmdiNzIwXGhlYWRlcnkwXGZ db5XgpkhaMC8vN2Try4H6pS 9maXRcZGVmdGFiNzIwXGZvc b5prCErUPvjj5QiMSH6dtN2 xCLvwIKzMHBqWJ19Ysnxg3L vYpskKFW6DFOwyjLqr8Cik5 qvWiApwuZtN3vhI6KxCELdA YUiSYQhQzNsvuOjs2Sca7Re sDZykQl9w7ujGREuMXTyvPg zk5vwHWV8PYNjJ0H3oKFiv0 auYCwsKEXgrTZ7spkwTXfxN UBnaeL8ztqyVUitGGPtjIL9 zgqmCEnzJTGyHjX4tpclMEs eYVZwQWF6DWrca421FLL2WH xzYmtwYWdlXHBnbmNvbnRcc GduZGVjXHBsYWluXHBsYWlu XGYwXGZzMjRccWxccGxhaW5 uXlYsDgUjZTqmES6wEDKaD4 ifwZObEQSjYUDjP0vfZeYtj I3bsQrnRJdxbrBtACYfEDGc L0f7KGCar4OujNEbfP== GROSS DESCRIPTION p1zrmZSkOUNxqHFdMfTlYYC (test code = 3366) lADUov4kiXPXddHOqNiPyNq NcZnRuYmpcdWMxXGRlZmYwe 1zmm525iSDkx7bzVUGgPcL3 fBGfFAPuzRGvA697IBZaBPw wt6qgf9WkWZTkqOUaw3T2NF ONawmwbDg4qFhpQ69lb6L4G alxN2kmOZKpBShbCWFkXSqh xCXuKLY6SGVtPDZ2UTynavT mncG2DElvsZVkOvG8MFa9a1 dnkKazCTHeNDQ5b9vsNQdfo aKwUK2nyl0arZu8p4uyphSx BLEjCAUrjVJMYXCfY0WelVw aFu5kvFf3cFihMlfwXCQ7Hl b4HS4scu04iwz4rYvpVGKvq qhlFcG3NDlbHSLhozvyGGc9 MFxtYXJnbDcyMFxtYXJncjc yMFxtYXJndDcyMFxtYXJnYj ogLKgbLITmRYE4SSlxu600X ME4HOrhk4mgd7demTVnNur9 GIBuTwCfXvayEQorv3Zav7v fRMGknh9pWCK5zNYieQeea0 W1rZMuCGTdjPQlxfGrLGRoL hB9PDaxKN9bks89KHBhHQA3 vu7nnSUehVbpmqXtcOXpOQg pO6JoJCBhp815ZDPpP5AaZA Pmo2O9dwCnZnOwUGZxsIG5p qF1YHZlNKn4uCAeikM5phJb qLDmF1xsgE27TdGmpZBkR6L dlJ09LuYspOXgN3ZptH84Xj NbfEBmM8ArzN71OeXixRNhR TIppIJeXp7fnDBnoOXgt3Kg wVFrEXaqY84pa220RPCxqhL oU7rnoCItljslfUSwtdhpUC xmczIwXHFsXHBsYWluXGYwX FIuGxIinMgzfS1oMtKbDiDa PRCJPVXbuYBaULFzubZtc9K tYWxpbiBsYWJlbGVkIHdpdG ggdGhlIHBhdGllbnQncyBuY G4pQRPoJ5Vte5Mdk73xkgTz YmVyIGFuZCAicmlnaHQgZm9 abIZztRUsWUH6GbWxzAN8Qb OrmPSoKaYnA24qrOCdoeDiV MBrtKEdm8QnORYtpSK3TPCl d98kOIflkFgkjElwLiKwaGx dxTSwYTuoPUCommCbXX0qYD ccALKhsF9gqBNgcBJqCNBln hgfDJ7dPDBhq9OrZInzRHSi BR6qIEnkLP51VQFaITftLSK iCAWxMZOqYLWuZ3TxFLOsWP SuAGBst80qOTUqqPblVKIgI DFvn8UkROErcRLug2JtCL1u fNLyvSkvupX3vDM9ZPiiNTo raa0nsbymXgY2aQGjHV17pB KiFRJ2wOMauNxweEldKR9bW BzwCCHhuIY5vM8yNTKfJDCh v5waTUYjJXNab7V4ZYZfa8K 3WLEtGMHwmJ4tBAsoc3IiPR LvpRMtSiJVbFBijN2mTEPfw XuoXcBmFkMrO5WiXGRoi54r HBweQLDaZT1dcS3kNBG5lkS iUVO6mZS7GFPaCN6xUHZaxu 5gMPZnlDK5vOEtAPVlvTogy SEoOOljyPqseKQ9VV7buXTx aT47DRIrkKBpKK4jWHAmZMw edt0vQeAxceWaFL63BVTzhq Xja6NljWcjdlGrIVRwIZE3O e8brSUmCANdlcUzo6ykl6se EoqqLMBkaWSrGBKeR9Qgf90 rJ23pXKifXLVemwWFRPrlm6 bagdMncvEzx39iiEX1bNJcs GAxpCLjA0opZBGgHWXnJ4Fz oAUnZLPkMWLktpZ5iC62xnB lzVEwQB0qMOVzlJL8ODJrn3 4qdFYcVHQyDZSfp5kqMRerp 9gdleGmxwIzrU6wAAVzwNzq FcDsWhYvE0SpKCOuj73kLEK rzCdse6ggBuNnOWYefPAyKb apALLne99vqKFeSEQ9EAE6S MByr97hBK0otpghtnCxwwHb RROvCJDvqXdec7ggJjQdUZL rqTWfTxvrNVIqi95ijJEyYQ SQO6XiKLwdKFM4 MICROSCOPIC i9ofrJIgXKPwpDVtCfWnLSQ DESCRIPTION (test code pIGXuh7bqXGHnfNDbMdPtCz = 3371) NcZnRuYmpcdWMxXGRlZmYwe 0bbz626cHBgy1fgZNTlWjA7 aOTfPGUcpUPaA436q2gww4m glbErlKP1IJKtFKM8RMfabq JwwkB9NSloyHOvXlM6JYztq nFnQNlnvrMwsySmFtr4FQXp T632KGS4eMuhr5kuUMS3SMB dBOJiAjUwGq1drJFzH135OL EmRWMAKTImbLz5EFFitmUvz mYbgRKXf195M188j6dtVMSa jhSinNtBpbgyd9bbX045JLZ hcGVydzEyMjQwXHBhcGVyaD Y0UBItMN0bmpspZsSiJL3qt bzhHyLgKI3yeak6KfDxZB1e cmdiNzIwXGhlYWRlcnkwXGZ wu3WzvfemFX5mN8Vqn5U6yJ 9maXRcZGVmdGFiNzIwXGZvc a3kqQQlNAgoh7NdFTR1fxM3 yCFedASeOHFqTX39Jcxuu6A aTgqrXWK1BQGjomSyr6Ugv7 zwUwXxtkIiN8jbX9XzZJGiK QTiUIZgFyJsiwKjh8Ybl7Ux uEWwzSp9u0skOLEpMTGqkFb ol7qfUFQ8LBCyT2A1vQElf4 ksFAfvXZZlpIV6keuvJOdwT MDkgbF4rkglIFacJKVgkKW3 lgggVIobQLJjHqV4klreNSc bYOKsHAW4VIdgi857IQP1RL xzYmtwYWdlXHBnbmNvbnRcc GduZGVjXHBsYWluXHBsYWlu XGYwXGZzMjRccWxccGxhaW5 iLuPfMuIsSMviTQ2xIQJoY3 rrePZnJNDnNDFgI0bfJwBeo H5gkCujVWkjvcGqLSGXPxXA [id number]== Gross assessment was [facility]. Burns's performed at ([facility], code = 2777) Department of Pathology, [address] [place] [address], Technical component [facility] was performed at ([facility], code = 2778) Department of Pathology, [address] [place], [place] [id number], Professional component [facility] was performed at ([facility], code = 2779) Department of Pathology, [address] [place] [address], [facility] [id number] 09:01:00Surgical Pathology Report Case: [id number] Authorizing Provider: Star Cloud DPM Collected: 06/19/2019 11:18 AM Ordering Location: [facility] Received: 06/19/2019 11:51 AM SERVICES Pathologist: Jonathan Hutchison MD Specimen: Foot, Right, right forefoot PART A RIGHT FOOT, TRANSMETATARSAL AMPUTATION:GANGRENOUS NECROSIS OF SKIN AND SOFT TISSUE.UNDERLYING ACUTE AND CHRONICOSTEOMYELITIS.STATUS POST PRIOR AMPUTATION.BONE AND SOFT TISSUE MARGINS ARE INVOLVED. Signing Pathologist Direct Phone Line: [phone] signed by Jonathan Hutchison MD on 06/22/2019 at 9:01 [id number], [id number] diagnosis: Gangrene, nonhealing wound of right heelA. [...] All three digits display gardner-yellow thickened nails. Instrument Person sections are submitted as follows:Section code: A1, skin and soft tissue margin en faceA2, previous site of amputationA3, skin lesion and underlying affected bone following decalcificationA4-A5, bone margin en face following decalcificationPA/pl PERFORMED.[facility], Department of Pathology, [address] [place] [id number], [facility], Department of [facility]ology, [address] [place] [address], [facility], [facility] of [facility], [address] [place] [address], WQPU-GLUCOSE [id number] 08:12:00 Test Item Value Reference Range Interpretation Comments POC-GLUCOSE METER 123 mg/dL 70-110 H : TESTED A T [facility] 6720 (BEAKER) (test code = DASIA Garcia [facility], 1538) [id number]: Neonatal Intensive Care Nurse/Techni estefani ID = [id number] for Izaiah Barber BASIC METABOLIC [id number] 06:52:00 Test Item Value Reference Range Interpretation [...] S NOT APPLICABLE FOR DIALYSIS PATIEN TS. Neonatal Intensive Care Nurse ID - BASSEM [id number] 06:51:00 Test Item Value Reference Range Interpretation Comments PHOSPHORUS (BEAKER) (test code = 6.3 mg/dL 2.3-4.7 H 604) Neonatal Intensive Care Nurse ID Benjie LUEVANO [id number] 06:51:00 Test Item Value Reference Range Interpretation Comments MAGNESIUM (BEAKER) (test code = 2.5 mg/dL 1.6-2.6 627) Neonatal Intensive Care Nurse ID Benjie LUEVANO WCBC W/PLT COUNT & AUTO [id number] 06:32:00 Test Item Value Reference Range Interpretation [...] (BEAKER) (test code = 2801) VANCOMYCIN LEVEL, [id number] 06:10:00 Test Item Value Reference Range Interpretation Comments VANCOMYCIN RANDOM (BEAKER) (test 19.5 ug/mL code = 523) Reference Range: No NormalsOperator ID - DBPOCT-GLUCOSE [id number] 21:39:00 Test Item Value Reference Range Interpretation Comments POC-GLUCOSE METER 212 mg/dL 70-110 H : TESTED A T [facility] 6720 ([facility]) (test code = [facility], 153) [address]161: Neonatal Intensive Care Nurse/Techni estefani ID = [id number] for EA GLIN, JALISSIA POCT-GLUCOSE [id number] 17:03:00 Test Item Value Reference Range Interpretation Comments POC-GLUCOSE METER 192 mg/dL 70-110 H : TESTED A T [facility] 6720 ([facility]) (test code = [facility], 153) 66094: Neonatal Intensive Care Nurse/Techni estefani ID = [id number] for HU NTER, HIWITHA POCT-GLUCOSE [id number] 12:20:00 Test Item Value Reference Range Interpretation Comments POC-GLUCOSE METER 191 mg/dL 70-110 H : [facility] T [facility] 6720 [facility] (test code = [facility], 153) 60748: Neonatal Intensive Care Nurse/Techni estefani ID = [id number] for CLAUDIA FONTANA SURGICALLY OBTAINED CULTURE + GRAM [id number] 11:27:00 Test Item Value Reference Range Interpretation Comments CULTURE (BEAKER) (test code No growth = 1095) GRAM STAIN RESULT (AKER) 3+ WBCs (test code = 1123) GRAM STAIN RESULT (BEAKER) No organisms seen (test code = 77341) SPIN/CONCENTRATION [id number] 08:46:00 Test Item Value Reference Range Interpretation Comments Concentration charged (test code = Done 1110) [facility] [id number] 08:46:00 Test Item Value Reference Range Interpretation Comments CONCENTRATION CHARGED (BEAKER) (test Done code = 7244) POCT-GLUCOSE [id number] 08:19:00 Test Item Value Reference Range Interpretation Comments POC-GLUCOSE METER 134 mg/dL 70-110 H : TESTED A T [facility] 6720 (BEAKER) (test code = DASIA [place], 1538) 91346: Neonatal Intensive Care Nurse/Techni estefani ID = [id number] for ZOILA SILVA BASIC METABOLIC [id number] 04:44:00 Test Item Value Reference Range Interpretation [...] S NOT APPLICABLE FOR DIALYSIS PATIEN TS. Neonatal Intensive Care Nurse ID - JAQUELINE [id number] 03:56:00 Test Item Value Reference Range Interpretation Comments PHOSPHORUS (BEAKER) (test code = 6.2 mg/dL 2.3-4.7 H 604) Neonatal Intensive Care Nurse ID - JAQUELINE [id number] 03:56:00 Test Item Value Reference Range Interpretation Comments MAGNESIUM (BEAKER) (test code = 2.3 mg/dL 1.6-2.6 627) Neonatal Intensive Care Nurse ID - JAQUELINE MCBC W/PLT COUNT & AUTO [id number] 03:44:00 Test Item Value Reference Range Interpretation [...] PERCENT (BEAKER) (test code = 2801) POCT-GLUCOSE [id number] 20:47:00 Test Item Value Reference Range Interpretation Comments POC-GLUCOSE METER 234 mg/dL 70-110 H : TESTED A T [facility] 6720 (BEAKER) (test code = [facility], 153) 93617: Neonatal Intensive Care Nurse/Techni estefani ID = [id number] for EA GLIN, CARMELALISSIA POCT-GLUCOSE [id number] 17:12:00 Test Item Value Reference Range Interpretation Comments POC-GLUCOSE METER 192 mg/dL 70-110 H : TESTED A T [facility] 6720 (BEAKER) (test code = [facility], [facility]) 25840: Neonatal Intensive Care Nurse/Techni estefani ID = [id number] for HU NTER, HIWITHA POCT-GLUCOSE [id number] 12:35:00 Test Item Value Reference Range Interpretation Comments POC-GLUCOSE METER 138 mg/dL 70-110 H : TESTED A T [facility] 6720 (BEAKER) (test code = [facility], 153) 43967: Neonatal Intensive Care Nurse/Techni estefani ID = [id number] for HU NTER, HIWITHA POCT-GLUCOSE [id number] 10:12:00 Test Item Value Reference Range Interpretation Comments POC-GLUCOSE METER 101 mg/dL 70-110 : TESTED A T [facility] 6720 (BEAKER) (test code = [facility], 153) 33625: Neonatal Intensive Care Nurse/Techni estefani ID = [id number] for Tu pasBassem Hernandez POCT-GLUCOSE [id number] 08:51:00 Test Item Value Reference Range Interpretation Comments POC-GLUCOSE METER 96 mg/dL 70-110 : TESTED A T [facility] 6720 (BEAKER) (test code = [facility], 1538) 54512: Neonatal Intensive Care Nurse/Techni estefani ID = [id number] for Tupa s, Bassem Hernandez BASIC METABOLIC [id number] 05:04:00 Test Item Value Reference Range Interpretation [...] S NOT APPLICABLE FOR DIALYSIS PATIEN TS. Neonatal Intensive Care Nurse ID - DANITZA LVANCOMYCIN LEVEL, [id number] 04:56:00 Test Item Value Reference Range Interpretation Comments VANCOMYCIN RANDOM (BEAKER) (test 18.7 ug/mL code = 523) Reference Range: No NormalsOperator ID - DANITZA [id number] 04:49:00 Test Item Value Reference Range Interpretation Comments PHOSPHORUS (BEAKER) (test code = 8.4 mg/dL 2.3-4.7 H 604) Neonatal Intensive Care Nurse ID - DANITZA [id number] 04:49:00 Test Item Value Reference Range Interpretation Comments MAGNESIUM (BEAKER) (test code = 2.5 mg/dL 1.6-2.6 627) Neonatal Intensive Care Nurse ID - DANITZA LCBC W/PLT COUNT & AUTO [id number] 04:22:00 Test Item Value Reference Range Interpretation [...] code = 2801) RAD, FOOT, 2 VIEWS, [id number] 22:40:00Reason for exam:->post op TMA rightFINAL REPORT [...] Signed: Mirta Alex Verified Date/Time: 06/19/2019 22:40:02 Electro nically signed by: MIRTA ALEX M.D. on 06/19/2019 10:40 PMXR foot 2 views [id number] 22:40:00Interface, External Ris In - 06/19/2019 10:42 [...] Signed: Mirta Alex Verified Date/Time: 06/19/2019 22:40:02 [facility] [id number] 21:19:00 Test Item Value Reference Range Interpretation Comments POC-GLUCOSE METER 221 mg/dL 70-110 H : TESTED A T [facility] 6720 ([employer]) (test code = [facility], 1538) 86363: Neonatal Intensive Care Nurse/Techni estefani ID = [id number] for KAVYA WHITMORE POCT-GLUCOSE [id number] 21:06:00 Test Item Value Reference Range Interpretation Comments POC-GLUCOSE METER 214 mg/dL 70-110 H : TESTED A T [facility] 6720 ([employer]) (test code = [facility], 1538) 15723: Neonatal Intensive Care Nurse/Techni estefani ID = [id number] for RENEE BOONE BLESSING POCT-GLUCOSE [id number] 21:05:00 Test Item Value Reference Range Interpretation Comments POC-GLUCOSE METER 131 mg/dL 70-110 H : TESTED A T [facility] 6720 (BEAKER) (test code = [facility], 1538) 18874: Neonatal Intensive Care Nurse/Techni estefani ID = [id number] for RENEE BOONE, BLESSING POCT-GLUCOSE [id number] 21:05:00 Test Item Value Reference Range Interpretation Comments POC-GLUCOSE METER 131 mg/dL 70-110 H : TESTED A T [facility] 6720 (BEAKER) (test code = [facility], 1538) 98907: Neonatal Intensive Care Nurse/Techni estefani ID = [id number] for BLESSING TUTTLE ECG 12 [id number] 18:07:02Interface, External Ris In - 06/19/2019 6:07 PM CDTVentricular Rate 67 BPMAtrial Rate 67 BPMP-R Interval 140 msQRS Duration 88 msQ-T Interval 446 msQTC Calculation(Bazett) 471 msP Pound 29 degreesR Pound -24 degreesT Pound 38 degreesNormal sinus rhythmPoor R wave progression Cannot rule out Possible Anterior infarct , age undeterminedProlonged QTAbnormal ECGNo previous ECGs availableConfirmed by Stella GOMEZ BASANT ([id number]) on 06/19/2019 6:07:01 [facility] [id number] 12:01:00 Test Item Value Reference Range Interpretation Comments POC-GLUCOSE METER 135 mg/dL 70-110 H : TESTED A T [facility] 6720 (BEAKER) (test code = [facility], 1538) 58502: Neonatal Intensive Care Nurse/Techni estefani ID = [id number] for GABRIELA OLMSTEAD POCT-GLUCOSE [id number] 09:10:00 Test Item Value Reference Range Interpretation Comments POC-GLUCOSE METER 200 mg/dL 70-110 H : TESTED A T [facility] 6720 (BEAKER) (test code = [facility], 1538) 25571: Neonatal Intensive Care Nurse/Techni estefani ID = [id number] for FRANCK SKELTON CBC W/PLT COUNT & AUTO [id number] 05:34:00 Test Item Value Reference Range Interpretation [...] (BEAKER) (test code = 2801) BASIC METABOLIC [id number] 05:28:00 Test Item Value Reference Range Interpretation [...] S NOT APPLICABLE FOR DIALYSIS PATIEN TS. Neonatal Intensive Care Nurse ID - BASSEM [id number] 05:27:00 Test Item Value Reference Range Interpretation Comments PHOSPHORUS (BEAKER) (test code = 6.7 mg/dL 2.3-4.7 H 604) Neonatal Intensive Care Nurse ID - BASSEM [id number] 05:27:00 Test Item Value Reference Range Interpretation Comments MAGNESIUM (BEAKER) (test code = 2.3 mg/dL 1.6-2.6 627) Neonatal Intensive Care Nurse ID - BASSEM WVANCOMYCIN LEVEL, [id number] 05:25:00 Test Item Value Reference Range Interpretation Comments VANCOMYCIN RANDOM (BEAKER) (test 21.5 ug/mL code = 523) Reference Range: No NormalsOperator ID Benjie LUEVANO WPOCT-GLUCOSE [id number] 17:28:00 Test Item Value Reference Range Interpretation Comments POC-GLUCOSE METER 173 mg/dL 70-110 H : TESTED A T [facility] 6720 (BEAKER) (test code = [facility], 1538) 02903: Neonatal Intensive Care Nurse/Techni estefani ID = [id number] for OR MONIQUEY ADLE POCT-GLUCOSE [id number] 14:19:00 Test Item Value Reference Range Interpretation Comments POC-GLUCOSE METER 133 mg/dL 70-110 H : TESTED A T [facility] 6720 (BEAKER) (test code = [facility], 1538) 42211: Neonatal Intensive Care Nurse/Techni estefani ID = [id number] for OR PHEY, DALE POCT-GLUCOSE [id number] 10:35:00 Test Item Value Reference Range Interpretation Comments POC-GLUCOSE METER 119 mg/dL 70-110 H : TESTED A T [facility] 6720 (BEAKER) (test code = [facility], 153) 96505: Neonatal Intensive Care Nurse/Techni estefani ID = [id number] for Po Sonya torres CBC W/PLT COUNT & AUTO [id number] 05:31:00 Test Item Value Reference Range Interpretation [...] (BEAKER) (test code = 2801) BASIC METABOLIC [id number] 05:17:00 Test Item Value Reference Range Interpretation [...] S NOT APPLICABLE FOR DIALYSIS PATIEN TS. Neonatal Intensive Care Nurse ID - JAQUELINE [id number] 05:16:00 Test Item Value Reference Range Interpretation Comments PHOSPHORUS (BEAKER) (test code = 7.5 mg/dL 2.3-4.7 H 604) Neonatal Intensive Care Nurse ID - JAQUELINE [id number] 05:16:00 Test Item Value Reference Range Interpretation Comments MAGNESIUM (BEAKER) (test code = 2.4 mg/dL 1.6-2.6 627) Neonatal Intensive Care Nurse ID - JAQUELINE MVancomycin level, [id number] 05:04:00 Test Item Value Reference Range Interpretation Comments Vancomycin Tr (test code = 25.9 ug/mL 10-20 H 4092-3) MITCHELL (test code = MITCHELL) Neonatal Intensive Care Nurse ID - JAQUELINE M Lab Interpretation (test Abnormal code = 69335-5) [facility], [id number] 05:04:00 Test Item Value Reference Range Interpretation Comments VANCOMYCIN TROUGH (BEAKER) (test 25.9 ug/mL 10.0-20.0 H code = 522) Neonatal Intensive Care Nurse ID - JAQUELINE MPOCT-GLUCOSE [id number] 21:00:00 Test Item Value Reference Range Interpretation Comments POC-GLUCOSE METER 148 mg/dL 70-110 H : TESTED A T [facility] 6720 (BEAKER) (test code = [facility], 153) 91903: Neonatal Intensive Care Nurse/Techni estefani ID = [id number] for RO AMALIA, SERENA POCT-GLUCOSE [id number] 19:14:00 Test Item Value Reference Range Interpretation Comments POC-GLUCOSE METER 137 mg/dL 70-110 H : TESTED A T [facility] 6720 (BEAKER) (test code = [facility], 1538) 24217: Neonatal Intensive Care Nurse/Techni estefani ID = [id number] for BR ITTGABRIELA, CAMILLE POCT-GLUCOSE [id number] 17:46:00 Test Item Value Reference Range Interpretation Comments POC-GLUCOSE METER 205 mg/dL 70-110 H : TESTED A T [facility] 6720 (BEAKER) (test code = [facility], 153) 30494: Neonatal Intensive Care Nurse/Techni estefani ID = [id number] for BR ITTEN, CAMILLE POCT-GLUCOSE [id number] 17:05:00 Test Item Value Reference Range Interpretation Comments POC-GLUCOSE METER 197 mg/dL 70-110 H : TESTED A T [facility] 6720 (BEAKER) (test code = [facility] [place] [place], 1538) 35657: Neonatal Intensive Care Nurse/Techni estefani ID = [id number] for CAMILLE BETTS BASIC METABOLIC [id number] 05:57:00 Test Item Value Reference Range Interpretation [...] S NOT APPLICABLE FOR DIALYSIS PATIEN TS. Neonatal Intensive Care Nurse ID - DANITZA [id number] 05:54:00 Test Item Value Reference Range Interpretation Comments PHOSPHORUS (BEAKER) (test code = 6.2 mg/dL 2.3-4.7 H 604) Neonatal Intensive Care Nurse ID - DANITZA [id number] 05:54:00 Test Item Value Reference Range Interpretation Comments MAGNESIUM (BEAKER) (test code = 2.2 mg/dL 1.6-2.6 627) Neonatal Intensive Care Nurse ID - DANITZA LCBC W/PLT COUNT & AUTO [id number] 05:44:00 Test Item Value Reference Range Interpretation [...] PERCENT (BEAKER) (test code = 2801) POCT-GLUCOSE [id number] 21:37:00 Test Item Value Reference Range Interpretation Comments POC-GLUCOSE METER 262 mg/dL 70-110 H : TESTED A T [facility] 6720 (BEAKER) (test code = [facility], 1538) 75894: Neonatal Intensive Care Nurse/Techni estefani ID = [id number] for KEIRY WHITMOREO POCT-GLUCOSE [id number] 16:44:00 Test Item Value Reference Range Interpretation Comments POC-GLUCOSE METER 203 mg/dL 70-110 H : TESTED A T [facility] 6720 ([facility]) (test code = [facility], 1538) 68469: Neonatal Intensive Care Nurse/Techni estefani ID = [id number] for NATE MONROY POCT-GLUCOSE [id number] 12:05:00 Test Item Value Reference Range Interpretation Comments POC-GLUCOSE METER 233 mg/dL 70-110 H : TESTED A T [facility] 6720 ([facility]) (test code = [facility], 1538) 22455: Neonatal Intensive Care Nurse/Techni estefani ID = [id number] for HU NTER, HIWITHA POCT-GLUCOSE [id number] 08:18:00 Test Item Value Reference Range Interpretation Comments POC-GLUCOSE METER 146 mg/dL 70-110 H : TESTED A T [facility] 6720 ([facility]) (test code = [facility], 1538) 81334: Neonatal Intensive Care Nurse/Techni estefani ID = [id number] for HU NTER, HIWITHA Manual [id number] 07:32:00 Test Item Value Reference Range Interpretation Comments % Neutros (test code = 78 % 2816) % Lymphs (test code = 4 % 2817) % Monos (test code = 10 % 2818) % Baso (test code = 1 % 2820) % Metamyelo (test code = 1 % 0-0 H 2821) % Bands (test code = 6 % 0-10 2826) # Neutros (test code = 12.95 K/ul 1.78-5.38 H 2830) # Lymphs (test code = 0.66 K/ul 1.32-3.57 L 2831) # Monos (test code = 1.66 K/uL [...] = 3438) MITCHELL (test code = MITCHELL) Neonatal Intensive Care Nurse ID - Roseanne OverholtUser comments: Slide comments: Lab Interpretation (test Abnormal code = 07924-8) [facility] W/PLT COUNT & AUTO [id number] 07:32:00 Test Item Value Reference Range Interpretation [...] CONCENTRATION Adequate (CELLAVISION)(BEAKER) (test code = 3438) Neonatal Intensive Care Nurse ID - Roseanne OverholtUser comments: Slide comments:BASIC [...] S NOT APPLICABLE FOR DIALYSIS PATIEN TS. Neonatal Intensive Care Nurse ID - JAQUELINE [id number] 06:29:00 Test Item Value Reference Range Interpretation Comments PHOSPHORUS (BEAKER) (test code = 4.9 mg/dL 2.3-4.7 H 604) Neonatal Intensive Care Nurse ID - JAQUELINE [id number] 06:29:00 Test Item Value Reference Range Interpretation Comments MAGNESIUM (BEAKER) (test code = 2.2 mg/dL 1.6-2.6 627) Neonatal Intensive Care Nurse ID - JAQUELINE MVANCOMYCIN LEVEL, [id number] 06:23:00 Test Item Value Reference Range Interpretation Comments VANCOMYCIN RANDOM (BEAKER) (test 31.1 ug/mL code = 523) Reference Range: No NormalsOperator ID - JAQUELINE MPOCT-GLUCOSE [id number] 21:18:00 Test Item Value Reference Range Interpretation Comments POC-GLUCOSE METER 233 mg/dL 70-110 H : TESTED A T [facility] 6720 (BEAKER) (test code = [facility], 153) 22184: Neonatal Intensive Care Nurse/Techni estefani ID = [id number] for KAVYA WHITMORE POCT-GLUCOSE [id number] 17:24:00 Test Item Value Reference Range Interpretation Comments POC-GLUCOSE METER 252 mg/dL 70-110 H : TESTED A T [facility] 6720 (BEAKER) (test code = [facility], 1538) 45639: Neonatal Intensive Care Nurse/Techni estefani ID = [id number] for HU NTER, HIWITHA POCT-GLUCOSE [id number] 17:24:00 Test Item Value Reference Range Interpretation Comments POC-GLUCOSE METER 124 mg/dL 70-110 H : TESTED A T [facility] 67 (BEAKER) (test code = DASIA Gracia [facility], 1538) 82847: Neonatal Intensive Care Nurse/Techni estefani ID = [id number] for ZOILA SILVA POC ACTIVATED CLOTTING [id number] 12:41:00 Test Item Value Reference Range Interpretation Comments Activated Clotting Time 241 sec : 74 -137 seconds, (test code = 441) Baseline: TESTED AT [facility] 67[address] [facility], 770 30: Neonatal Intensive Care Nurse/Techni estefani ID = [id number] for CRYSTAL SHAH [facility] [id number] 12:41:00 Test Item Value Reference Range Interpretation Comments ACTIVATED CLOTTING TIME 241 sec : 74 -137 seconds, (BEAKER) (test code = Baseli ne: TESTED AT [facility]) [address], 770 30: Neonatal Intensive Care Nurse/Techni estefani ID = [id number] for FE CRYSTAL SOTELO Arterial Doppler Leg, [id number] 10:44:41[facility] E[facility]ART[facility] MKCKESSON CPACSRight Impression1. The common [...] + + + + + + !Prox SOFTWARE SYSTEMS ARCHITECT ! !0 ! ! ! + + +--------- ---------+ + + !Mid SOFTWARE SYSTEMS ARCHITECT ! !0 ! ! ! + + + + + + !Dist SOFTWARE SYSTEMS ARCHITECT ! !12.2 ! ! ! + + [...] of Study 06/14/2019 Age 58 Visit Number [id number] Gender Male Accession Number [id number] Date of 1960 Referring Pepper Hagan Room Number 7601 Physician Refrigeration Unit Repairer Matthew Saucedo Interpreting Celi Morgan T Physician [...] + + + + + + !Prox SOFTWARE SYSTEMS ARCHITECT ! !0 ! ! ! + + + + + + !Mid SOFTWARE SYSTEMS ARCHITECT ! !0 ! ! ! + + + + + + !Dist SOFTWARE SYSTEMS ARCHITECT ! !12.2 ! ! ! + + + + + + !Prox MARTY ! !17.3 ! ! ! + + + + + + !Mid MARTY ! !30.6 !10.4 ! ! + + +---- + + + !Dist MARTY ! !34.6 !9.63 ! ! + + + + + +[facility] DP Doppler [id number] 10:44:15Ejection [facility] ECHO HEARTLAB MKCKESSON CPACSRight Impression1. The [...] of Study 06/14/2019 Age 58 Visit Number [id number] Gender Male Accession Number [id number] of 1960 Referring Pepper Hagan Room Number 7601 Physician Refrigeration Unit Repairer Matthew Saucedo Interpreting Celi Morgan T Physician [...] in cm/s ; Diameters are measured in cmCH[facility] ABORH, [id number] 10:36:00 Test Item Value Reference Range Interpretation Comments ABO Grouping (test code = 2588) O Rh Factor (test code = 2589) POS [facility] CenterHEPATITIS B SURFACE [id number] 04:57:00 Test Item Value Reference Range Interpretation Comments HEPATITIS B SURFACE ANTIGEN (2) Nonreactive Nonreactive (BEAKER) (test code = 2585) Neonatal Intensive Care Nurse ID - LMBASIC METABOLIC [id number] 04:38:00 Test Item Value Reference Range Interpretation [...] S NOT APPLICABLE FOR DIALYSIS PATIEN TS. Neonatal Intensive Care Nurse ID - BASSEM [id number] 04:37:00 Test Item Value Reference Range Interpretation Comments PHOSPHORUS (BEAKER) (test code = 5.6 mg/dL 2.3-4.7 H 604) Neonatal Intensive Care Nurse ID - BASSEM [id number] 04:37:00 Test Item Value Reference Range Interpretation Comments MAGNESIUM (BEAKER) (test code = 2.2 mg/dL 1.6-2.6 627) Neonatal Intensive Care Nurse ID - BASSEM WCBC W/PLT COUNT & AUTO [id number] 04:34:00 Test Item Value Reference Range Interpretation [...] PERCENT (BEAKER) (test code = 2801) POCT-GLUCOSE [id number] 22:31:00 Test Item Value Reference Range Interpretation Comments POC-GLUCOSE METER 203 mg/dL 70-110 H : TESTED A T [facility] 6720 (BEAKER) (test code [facility], = 1538) 07723: Neonatal Intensive Care Nurse/Techni estefani ID = [id number] for Emma Leyva POCT-GLUCOSE [id number] 21:30:00 Test Item Value Reference Range Interpretation Comments POC-GLUCOSE METER 205 mg/dL 70-110 H : TESTED A T [facility] 6720 (BEAKER) (test code = [facility], 1538) 38323: Neonatal Intensive Care Nurse/Techni estefani ID = [id number] for ARLEN ADAN POCT-GLUCOSE [id number] 16:56:00 Test Item Value Reference Range Interpretation Comments POC-GLUCOSE METER 210 mg/dL 70-110 H : TESTED A T [facility] 6720 (BEAKER) (test code = [facility], 1538) 71390: Neonatal Intensive Care Nurse/Techni estefani ID = [id number] for MATEUS ROBLES RAD, FOOT, MIN 3 VIEWS, [id number] 15:36:00Reason for exam:->Right foot gangrene, 2nd toe [...] MDReport Verified Date/Time: 06/14/2019 15:36:18 Reading Location: [facility] C013X Ortho Consult Reading Room XR foot 3 views [id number] 15:36:00Interface, External Ris In - 06/14/2019 3:38 [...] MDReport Verified Date/Time: 06/14/2019 15:36:18 Reading Location: [facility] C013X Ortho Consult Reading Room [facility] METABOLIC [id number] 15:34:00 Test Item Value Reference Range Interpretation [...] S NOT APPLICABLE FOR DIALYSIS PATIEN TS. Neonatal Intensive Care Nurse ID - [id number] 15:33:00 Test Item Value Reference Range Interpretation Comments PHOSPHORUS (BEAKER) (test code = 4.8 mg/dL 2.3-4.7 H 604) Neonatal Intensive Care Nurse ID - [id number] 15:33:00 Test Item Value Reference Range Interpretation Comments MAGNESIUM (BEAKER) (test code = 2.2 mg/dL 1.6-2.6 627) Neonatal Intensive Care Nurse ID - BSCBC W/PLT COUNT & AUTO [id number] 15:20:00 Test Item Value Reference Range Interpretation [...] PERCENT (BEAKER) (test code = 2801) POCT-GLUCOSE [id number] 12:22:00 Test Item Value Reference Range Interpretation Comments POC-GLUCOSE METER 242 mg/dL 70-110 H : TESTED A T [facility] 6720 (BEAKER) (test code = [facility], 1538) 87269: Neonatal Intensive Care Nurse/Techni estefani ID = [id number] for MATEUS ROBLES POCT-GLUCOSE [id number] 12:16:00 Test Item Value Reference Range Interpretation Comments POC-GLUCOSE METER 206 mg/dL 70-110 H : TESTED A T [facility] 6720 (BEAKER) (test code = [facility], 1538) 47309: Neonatal Intensive Care Nurse/Techni estefani ID = [id number] for MATEUS ROBLES Occult blood, [id number] 16:59:41 Test Item Value Reference Range Interpretation Comments Occult blood, Negative for Specimen stool (test occult blood. InformationSpe cimen code = Source: StoolSp ecimen 2334-1) Site: Nonpreser edmond [facility]
--- OUTSIDE RECORDS SUMMARY | 2019-11-05 11:19 | XMS REPORT | Summary of Care ---
:1960 Author Organization [facility] [place] [address] Care Team Providers Name Role Phone Tito Duval MD Primary Care Provider Reason for Visit Reason Comments Follow Up wound care Post-op Follow-up Wound Check Consult, Test & Treat (Routine) Status Reason Specialty Diagnoses / Referred By Referred To Procedures Contact Contact Authorized Podiatry / Procedures Star Mirza, Star Mirza, Vascular Surgery ESTABLISHED OFFICE DPM DPM VISIT [address] [place] [address] [place] [address] [address] [place], [place] [id number] Phone: Fax: Encounter Details Date Type Department Care Team Description 09/04/2019 Office Visit [facility] Star Mirza, Follow Up (wound Medicine Vascular DPM care); Post-op Surgery [address] [place] [address] Follow-up; Wound Check [address] [facility] [address], [address] [place] [address] [place] [phone] [address] [phone] Allergies No Known Allergiesdocumented as of this encounter (statuses as of 09/22/2019) Medications Medication Sig Dispensed Refills Start End Date Status Date SENNA CO by COMBINATION 0 Activ e route. furosemide (LASIX) Take 40 mg by 0 Active 40 MG tablet mouth daily. hydrALAZINE Take 25 mg by 0 Acti ve (APRESOLINE) 25 MG mouth 3 times tablet daily. Sevelamer Carbonate Take by mouth. 0 Active 800 MG TABS amlodipine Take 10 mg by 0 Activ e (NORVASC) 10 MG mouth daily. tablet amoxicillin-clavula Take 1 Tab by 0 Active chris (AUGMENTIN) mouth 3 times 500-125 MG per daily. tablet Spironolactone 25 Take by mouth. 0 Active MG/5ML SUSP carvedilol (COREG) Take 12.5 mg by 0 Active 12.5 MG tablet mouth 2 times daily (with meals). gabapentin Take 300 mg by 0 Acti ve (NEURONTIN) 300 MG mouth 3 times capsule daily. ASPIRIN 81 OR Take by mouth. 0 Active mupirocin Apply 1-2 grams 1 Tube 1 09/04/19 Disc ontinued (BACTROBAN) 2 % to affected 0 20 (R eorder) ointment area daily. documented as of this encounter (statuses as of 09/22/2019) Active Problems Problem Noted Date Post-operative state 07/24/2019 S/P transmetatarsal amputation of foot, right (HCCode) 07/24/2019 Type 2 diabetes mellitus with diabetic peripheral you opathy without 07/24/2019 gangrene, with long-term current use of insulin (HCCod e) Encounter for post surgical wound check 07/24/2019 PAD (peripheral artery disease) (HCCode) 07/17/2019 documented as of this encounter (statuses as of 09/22/2019) Social History Tobacco Use Types Packs/Day Years [...] been in contact with No / Unsure 09/04/2019 2:16 PM CDT someone who was confirmed or suspected to have Coronavirus / COVID-19? documented as of this encounter Last Filed Vital Signs Vital Sign Reading Time Taken Comments Blood Pressure 165/91 09/04/2019 2:36 PM CDT Pulse 70 09/04/2019 2:36 PM CDT Temperature - - Respiratory Rate - - Oxygen Saturation - - Inhaled Oxygen Concentration - - Weight 104.3 kg (230 lb) 09/04/2019 2:36 PM CDT Height 172.7 cm (5' 8") 09/04/2019 2:36 PM CDT Body Mass Index 34.97 09/04/2019 2:36 PM CDT documented in this encounter Patient Instructions Patient InstructionsLorraine Rudd CMA - 09/04/2019 3:28 PM CDTThank you for choosing [facility]. You may receive a survey in the mail. Please provide comments to let us know how we can improve our patient care. Patient will be schedule for Shx with and Rx mupirocin (BACTROBAN) 2 % ointment send to pharmacy. Star Mirza DPM, FACFAS Furnace [employer] Division of Vascular Surgery and Endovascular Therapy If you have any questions, please feel free to call us at: documented in this encounter Progress Notes Pattie Kimball FNPC - 09/04/2019 2:30 PM CDT Subjective: Dayton Grijalva is a 58 y.o. male that presents today for follow-up evaluation and management of right TMA with advancement placement flap with primary closure (06/19/19 - Hermes). Since last office visit, patient reports not retrieving pain medication. Has suffered with plantar flap discomfort. he admits to to being compliant with his local wound care consisting of Betadine wet to dry dressing, keeping foot clean, dry, and intact. He denies any additional complaints today. No results foundfor: HGBA1C. No new complaints. he denies any [...] ANGIOS / AORTOGRAM; Surgeon:Clark Danielle MD; Location: [facility]; Service: General Surgery; Laterality: Bilateral; AMPUTATION,TOE 06/19/2019 Right Procedure: AMPUTATION,TOE; Surgeon: Star Mirza DPM; Location: [facility] OR; Service: Podiatry; Laterality: Right; AMPUTATION 4TH DIGIT PARTIAL, 2nd ,3rd ,4th RAY AMPUTATION RIGHT FOOT WITH POSSIBLE TRANSMETATARASAL AMPUTATION WITH SPY MACHINE,PULSE LAVAGE AND VERSA JET OSTECTOMY,FOOT/ TOE 06/19/2019 Right Procedure: OSTECTOMY,FOOT/ TOE; Surgeon: Star Mirza DPM; Location: [facility] OR; Service: Podiatry; Laterality: Right; AMPUTATION,FOOT 06/19/2019 Right Procedure: AMPUTATION,FOOT; Surgeon: Star Mirza DPM; Location: [facility] OR; Service: Podiatry; Laterality: Right; PROCEDURE W/SPY ELITE FLUORESCENT VASCULAR ANGIOGRAPHY 06/19/2019 N/A Procedure: PROCEDURE W/ SPY ELITE FLUORESCENT VASCULAR ANGIOGRAPHY; Surgeon: Star Mirza DPM; Location: [facility] OR; Service: Podiatry; Laterality: N/A; Surgical history includes right diagnostic angiogram (none previously performed with history of toe amputations without angiography), selective catherization of 3rd order vessel x 2 (peroneal and anterior tibial artery), right peroneal arteryballoon angioplasty, right anterior tibialballoon angiopl asty(06/15/19 - Shashi), right SPY, I&D abscess post amputation site, right TMA with advancement placement flap with primary closure (06/19/19 - Hermes). Objective: BP (!) 165/91 | Pulse 70 | Ht 5' 8" (1.727 m) | Wt 230 lb (104.3 kg) | BMI 34.97 kg/m General: Patient is alert, responsive, NAD Lower Ext: Derm: Wound site rightTMA stumppresents with dry, stable eschar. Remaining sutures intactto dorsal flap. Taylor plantar flap with eschar presents with granular bed.There is periwound hyperkeratosis in need of debridement. Hyperpigmentation noted to proximal stump, stable, as previously noted. There is notany evidence of edema, erythema, purulence, malodor, probe to bone, tracking or tunneling noted. The wound site isunchanged. Vasc: Pedal pulsesare notpalpable bilateral lower extremity. CFT <3 sec bilateral. Biphasic signal noted to DP/PT/peroneal, RLE. Neuro: Protective threshold is notintact bilateral. Mus/Ske: Muscle strength 3/5RLE. Range of motion decreased torightlower extremity. Leftfoot digital contractures. Psych: Mood normal, affect normal, concentration normal Assessment and Plan: 1. S/p right diagnostic angiogram (none previously performed with history of toe amputations withoutangiography), selective catherization of 3rd order vessel x 2 (peroneal and anterior tibial artery),right peroneal arteryballoon angioplasty, right anterior tibialballoon angioplasty(06/15/19 - Shashi) 2. S/p right SPY, I&D abscess post amputation site, right TMA with advancement placement flap with primary closure (06/19/19 - Hermes) 3. PAD 4. DM II - insulin 5. DPN, bilateral - gabapentin 1. Evaluated by Dr. Danielle today: The patient has good doppler signals. No vascular intervention needed. The patient's stump would benefit from debridement of the superficial flap necrosis with placement of skin substitute.The patient will undergo a joint procedure with Drs. Danielle and Hermes on ,September 13, 2019. 2.The right TMA stump was manually debrided minimally.The wound site was then dressed with mupirocin to edges of the wound,followed by application of Adaptic, Betadine wet to dry,sterile 4x4, webrill and nica bandage in a mildly compressive manner.Hewas instructed to change dressing daily as performed in clinic, as before.Do not soak foot. Son at bedside. Verbalized understanding. Communicated with patient and is in agreeable with proceeding with revision of TMA stump and eschar, debridement with possible resection of bone, I&D, application of acellular dermal matrix graft. May possibly undergo RLE angio in a orthodontic laboratory technician the following day if questionable blood flow during revision. 3.DM education given and reinforced as previous OV. Patient verbalized understanding. Findings were discussed with the patient and all questions were answered. F/u 2 weeks post op ZOLTAN Clemente [facility] Division of Vascular Surgery and Podiatry I personally examined , and was present for the evaluation and treatment of patient I concur with the examination, findings, procedures, and documentation on patient by PattieTorie Cisneros DPM Furnace [employer] [facility] Feliz Finney Department of Surgery Division of Vascular Surgery and Endovascular Therapy documented in this encounter Plan of Treatment Date Type Specialty Care Team Description 10/02/2019 Office Visit Vascular Surgery Star Mirza DPM [address] [facility] [address] [place], [place] [address] [phone] Health Maintenance Due Date Last Done Comments [...] amputation of foot, right (HCCode) - Primary Non-healing wound of lower extremity, ri ght, subsequent encounter Post-operative state Other postprocedural status Encounter for post surgical wound check Type 2 diabetes mellitus with diabetic p eripheral angiopathy without gangrene, with long-term current use of insulin (HCCode ) PAD (peripheral artery disease) (HCCode) Unspecified disorders of arteries and ar terioles Wound eschar of foot Unspecified disorder of skin and subcuta neous tissue Status post transmetatarsal amputation o f foot, right (HCCode) documented in this encounter Insurance Payer Benefit Plan / Subscriber ID Effective Phone Address T ype Group Dates [place] [employer] xxxxxxxxxxx 2019-Prese [address] HMO - RNPO PCP nt [id number] [place] [address] documented as of this encounter
--- OUTSIDE RECORDS SUMMARY | 2019-11-05 11:19 | XMS REPORT | Summary of Care ---
:1960 Author Organization [facility] [place] [address] Care Team Providers Name Role Phone Tito Duval MD Primary Care Provider Reason for Visit Reason Comments Follow Up PAD, s/p TMA by Dr Mirza, trista jaimes follow up Consult, Test & Treat (Routine) Status Reason Specialty Diagnoses / Referred By Referred To Procedures Contact Contact Authorized Vascular Surgery Procedures Star Mirza [place], Joseph L, ESTABLISHED OFFICE DPM VISIT [address] [place] [address] [place] [address] Phone: Fax: Encounter Details Date Type Department Care Team Description 09/04/2019 Office Visit [facility] Clark Monsalve, Follow Up (PAD, s/p Medicine Vascular MD TMA by Dr Mirza, wound Surgery [address] [place] [address] follow up) [address] [place] [address] [address], [address] [address] [phone] Allergies No Known Allergiesdocumented as of this encounter (statuses as of 09/10/2019) Medications Medication Sig Dispensed Refills Start End [...] as of this encounter (statuses as of 09/10/2019) Active Problems Problem Noted Date Post-operative state 07/24/2019 S/P transmetatarsal amputation of foot, right (HCCode) 07/24/2019 Type 2 diabetes mellitus with diabetic peripheral you opathy without 07/24/2019 gangrene, with long-term current use of insulin (HCCod e) Encounter for post surgical wound check 07/24/2019 PAD (peripheral artery disease) (HCCode) 07/17/2019 documented as of this encounter (statuses as of 09/10/2019) Social History Tobacco Use Types Packs/Day Years [...] Time Taken Comments Blood Pressure 165/91 09/04/2019 2:29 PM CDT Pulse 70 09/04/2019 2:29 PM CDT Temperature - - Respiratory Rate - - Oxygen Saturation - - Inhaled Oxygen Concentration - - Weight 104.3 kg (230 lb) 09/04/2019 2:29 PM CDT Height 172.7 cm (5' 8") 09/04/2019 2:29 PM CDT Body Mass Index 34.97 09/04/2019 2:29 PM CDT documented in this encounter Progress Notes Kassie Ramachandran NP - 09/04/2019 2:00 PM CDT [facility] [address] [place] [address], [place]. [address] Office: [phone] Established Outpatient visit: PAD, s/p AT and peroneal MECHANICAL ENGINEERING DRAFTSPERSON by DR Monsalve Necrosis of plantar TMA flap (DR Mirza): wound follow-up DATE OF VISIT: 09/04/19 PATIENT NAME: Dayton Grijalva : 1960; AGE: 58 y.o.; Sex:M PHONE NUMBER: ; (Work); ; SS#: [id number] PHYSICIAN: Clark Monsalve MD and Kassie Ramachandran NP PRIMARY CARE / REFERRING PHYSICIAN: Star Mirza DPM / Tito Duval / Cathie [address]ART[address]NEZ [id number] / [facility] [id number] / REASON FOR EVALUATION / CHIEF COMPLAINT: Evaluation and treatment of Right TMA nonhealing stump, plantar flap necrosis HISTORY OF PRESENT ILLNESS: Dayton Grijalva is a 58 y.o. male patient with PMHx including HTN, DM, and CKD. The patient has previously undergone a right peroneal and anterior tibial artery balloon angioplasty (06/15/19 - Monsalve) and right transmetatarsal amputation (06/19/19 - Monsalve). The TMA's postoperative course has been complicated by superficial flap necrosis. The stump has been under close surveillance with Dr. Mirza. The patient denies any fever, pain, drainage, or foul odor. The patient presents with son to discuss management of the stump. PAST SURGICAL HISTORY: The patient's has a past surgical history that includes hx amputation. PAST MEDICAL HISTORY: The patient has a past medical history of Chronic kidney disease, Hypertension, and Type 1 diabetes mellitus (HCCode). He also has no past medical history of Abnormal maternal glucose tolerance, complicating . FAMILY HISTORY: The patient's family history includes Diabetes in his sister. CURRENT MEDICATIONS: Outpatient Medications Prior to Visit Medication Sig Dispense Refill amlodipine Take 10 mg by mouth daily. amoxicillin-clavulanate Take 1 Tab by mouth 3 times daily. ASPIRIN 81 OR Take by mouth. carvedilol Take 12.5 mg by mouth 2 times daily (with meals). furosemide Take 40 mg by mouth daily. gabapentin Take 300 mg by mouth 3 times daily. hydrALAZINE Take 25 mg by mouth 3 times daily. mupirocin Apply 1-2 grams to affected area daily. 1 Tube 1 SENNA CO by COMBINATION route. Sevelamer Carbonate Take by mouth. Spironolactone Take by mouth. No facility-administered medications prior to visit. No Known Allergies SOCIAL HISTORY: reports that he has never smoked. He has never used smokeless tobacco. He reports previous alcohol use. He reports that he does not use drugs. FAMILY HISTORY: family history includes Diabetes in his sister. REVIEW OF SYSTEMS: General: negative for - night sweats, sleep disturbance, weight gain or weight loss Psychological: negative for - anxiety, memory difficulties, mood swings or sleep disturbances Respiratory: no cough, shortness of breath, wheezing, dyspnea, sputum production, or hemoptysis. Cardiovascular: no chest pain, orthopnea, heart murmur, or dyspnea on exertion Gastrointestinal: no abdominal pain, change in bowel habits, jaundice, constipation, or black or bloody stools Genito-Urinary: no dysuria, trouble voiding, or hematuria Musculoskeletal: negative for - joint stiffness, joint swelling or bone pain Neurological: negative for - behavioral changes, headaches, impaired coordination, loss of balance, tingling sensation, dizziness, seizure, memory loss or weakness Dermatological: negative for - mole changes, nail changes, skin lesion changes, or skin discoloration. Hematological and Lymphatic: negative for - bleeding problems, blood clots, bruising, fatigue, swollen lymph nodes or history of anemia. Endocrine: negative for thyroid disease, heat or cold intolerance, polyuria, or polydipsia Psychiatric: negative for depression, sleep disturbance, suicidal ideation, anxiety disorder, or history of hallucinations VITAL SIGNS: BP (!) 165/91 (BP Location: right arm, Patient Position: Sitting, Cuff Size: large) | Pulse 70 | Ht 5' 8" (1.727 m) | Wt 230 lb (104.3 kg) | BMI 34.97 kg/m PHYSICAL EXAM: Constitutional: Well nourished, no signs of distress HENT: Non icteric sclerae, oropharynx clear. Normocephalic and atraumatic. Cranial nerves II-XI aregrossly intact. Pupils are equally reactive to light. Extraocular motor intact. Lymphadenopathy: He has no cervical, supraclavicular or axillary adenopathy, Cardiovascular: Normal rate, regular rhythm and normal heart sounds. No murmurs , rubs or gallops Pulmonary/Chest: Breath sounds normal. No respiratory distress. No adventitious sounds. Abdominal: Soft. No abdominal distension or tenderness. No masses palpated and no hepatomegaly. No organomegaly. No abdominal pulsatile mass noted. Musculoskeletal: Normal range of motion. No evidence of arthritis. Extremities: No edema, cyanosis or clubbing. R TMA stump with superficial necrosis. Wound edges wellperfused. Neurological: He is alert and oriented. No muscle weakness and normal gait. VASCULAR: Palpable femoral pulses were present bilaterally with Dopplerable bilateral popliteal arterial signals. Dopplerable signals were present in bilateral dorsalis pedis and posterior tibial artery arteries. Diagnostic Evaluation: ASSESSMENT & PLAN: Peripheral artery disease & Nonhealing R TMA stump: The patient has strong Doppler signals in DPand peroneal, patent by duplex . No vascular intervention needed. The patient's stump would benefit from debridement of the superficial flap necrosis with placement of skin substitute.The patient will undergo a joint procedure with Drs. Monsalve and Hermes on September 12. Kassie Ramachandran RETIREMENT SPECIALIST-C Vascular Surgery I personally examined patient with BRIDGER Ramachandran, discussed with Dr. Mirza in person. I agree with above note and plan Clark Monsalve MD ceo na Chief, Division of Vascular Surgery and Endovascular Therapy [facility] 09/04/2019 documented in this encounter Plan of Treatment Date Type Specialty Care Team Description 09/13/2019 Appointment Vascular Surgery Star Mirza DPM [address] [address] [phone] 09/21/2019 Office Visit Vascular Surgery Star Mirza DPM [address] [facility] [address] [place], [place] [address] [phone] Health Maintenance Due Date Last Done Comments [...] filedocumented in this encounter Visit Diagnoses Diagnosis Type 2 diabetes mellitus with diabetic p eripheral angiopathy and gangrene, without long-term current use of insulin (HCCode ) - Primary S/P transmetatarsal amputation of foot, right (HCCode) PAD (peripheral artery disease) (HCCode) Unspecified disorders of arteries and ar terioles documented in this encounter Insurance Payer Benefit Plan / Subscriber ID Effective Phone Address T ype Group Dates [place] [employer] xxxxxxxxxxx 2019-Prese [address] HMO - RNPO PCP nt [id number] [place] [address] documented as of this encounter
--- OUTSIDE RECORDS SUMMARY | 2019-11-05 11:19 | XMS REPORT | Summary of Care ---
:1960 Author Organization [facility] Address [address] [id number] Care Team Providers Name Role Phone Tito Duval MD Primary Care Provider Reason for Visit Reason Comments Post-op Follow-up Wound Check Consult, Test & Treat (Routine) Status Reason Specialty Diagnoses / Referred By Referred To Procedures Contact Contact Authorized Podiatry Diagnoses Non-healing surgical wound to discuss surgery once again Star Mirza, Star Mirza, Procedures MS OFFICE OUTPATIENT VISIT 25 MINUTES ESTABLISHED OFFICE VISIT DPM DPM [address] [facility] [address] [place] [address] [place] [address] [address] [place] [address] Phone: Fax: Encounter Details Date Type Department Care Team Description 10/02/2019 Office Visit [facility] Star Burrell, Post-o p Follow-up; Medicine Vascular DPM Wound Check Surgery [address] [place] [address] [address] [facility], [address] [place] [address] [place], [place] [phone] Allergies No Known Allergiesdocumented as of this encounter (statuses as of 10/04/2019) Medications Medication Sig Dispensed Refills Start Date [...] as of this encounter (statuses as of 10/04/2019) Active Problems Problem Noted Date Post-operative state 07/24/2019 S/P transmetatarsal amputation of foot, right (HCCode) 07/24/2019 Type 2 diabetes mellitus with diabetic peripheral you opathy without 07/24/2019 gangrene, with long-term current use of insulin (HCCod e) Encounter for post surgical wound check 07/24/2019 PAD (peripheral artery disease) (HCCode) 07/17/2019 documented as of this encounter (statuses as of 10/04/2019) Social History Tobacco Use Types Packs/Day Years [...] Sign Reading Time Taken Comments Blood Pressure 202/110 10/02/2019 2:32 PM CDT Pulse 67 10/02/2019 2:32 PM CDT Temperature - - Respiratory Rate - - Oxygen Saturation - - Inhaled Oxygen Concentration - - Weight 104.3 kg (230 lb) 10/02/2019 2:32 PM CDT Height 172.7 cm (5' 8") 10/02/2019 2:32 PM CDT Body Mass Index 34.97 10/02/2019 2:32 PM CDT documented in this encounter Progress Notes Star Mirza DPM - 10/02/2019 2:00 PM CDT Subjective: Dayton Grijalva is a 58 y.o. male that presents today for follow-up evaluation of and management of rightTMA with advancement placement flap with primary closure (06/19/19 - Hermes). Since last office visit,patient reports not retrieving pain medication. Has suffered with plantar flap discomfort. he admits to to being compliant with his local wound care consisting of Betadine wet to dry dressing, keeping foot clean, dry, and intact. He denies any additional complaints today. No results foundfor: HGBA1C. No new complaints. he denies any nausea, vomiting, fever, or chills. FOOT AMPUTATION THROUGH METATARSAL 2009 Left TOE AMPUTATION Right 2nd toe 05/2019, 3rd toe 06/2019 CORONARY ARTERY BYPASS GRAFT 09/2018 PERIPHERAL ANGIOS / AORTOGRAM 06/15/2019 Bilateral Procedure: PERIPHERAL ANGIOS / AORTOGRAM; Surgeon:Clark Danielle MD; Location: [facility]; Service: General Surgery; Laterality: Bilateral; AMPUTATION,TOE 06/19/2019 Right Procedure: AMPUTATION,TOE; Surgeon: Star Mirza DPM; Location: [facility] OR; Service: Podiatry; Laterality: Right; AMPUTATION 4TH DIGIT PARTIAL, 2nd ,3rd ,4th RAY AMPUTATION RIGHT FOOT WITH POSSIBLE TRANSMETATARASAL AMPUTATION WITH SPY MACHINE,PULSE LAVAGE AND VERSA JET OSTECTOMY,FOOT/ TOE 06/19/2019 Right Procedure: OSTECTOMY,FOOT/ TOE; Surgeon: Star Mirza DPM; Location: [facility] OR; Service: Podiatry; Laterality: Right; AMPUTATION,FOOT 06/19/2019 Right Procedure: AMPUTATION,FOOT; Surgeon: Star Mirza DPM; Location: [facility] OR; Service: Podiatry; Laterality: Right; PROCEDURE W/SPY ELITE FLUORESCENT VASCULAR ANGIOGRAPHY 06/19/2019 N/A Procedure: PROCEDURE W/ SPY ELITE FLUORESCENT VASCULAR ANGIOGRAPHY; Surgeon: Star Mirza DPM; Location: [facility]; Service: Podiatry; Laterality: N/A; Surgical history includes [...] closure (06/19/19 - Hermes). Objective: BP (!) 202/110 (BP Location: right arm, Patient Position: Sitting, Cuff Size: regular) | Pulse 67 | Ht 5' 8" (1.727 m) | Wt 230 lb (104.3 kg) | BMI 34.97 kg/m General: Patient is alert, responsive, NAD Lower Ext: Derm: Wound site rightTMA stumppresents with dry, stableeschar. Remaining sutures intact to dorsal flap. Taylor plantar flapwith escharpresents with granular bed.There is periwound hyperkeratosis in need of debridement. Hyperpigmentation noted to proximal stump, stable, as previously noted.There is notany evidence of edema, erythema, purulence, malodor, probe to bone, tracking ortunneling noted. The wound site isunchanged. Vasc: Pedal pulses are palpable bilateral lower [...] - insulin 5. DPN, bilateral - gabapentin 1.Evaluated by Dr. Danielle last visit. The patient has good doppler signals. No vascular intervention needed. The patient's stump would benefit from debridement of the superficial flap necrosis with placement of skin substitute.The patient will undergo a joint procedure with Drs. Danielle and Hermes on October. 2.The right TMA stump was manually debrided today, both The wound dehiscence site dorso-laterallyand plantarly. Good bleeding was seen.The wound site was then dressed with mupirocin [...] May possibly undergo RLE angio in a director labor standards the following day if questionable blood flow during revision. 3.DM education given and reinforced as previous OV. Patient verbalized understanding. Will schedule surgery with Dr. Danielle October 17 . Pictures sent to Dr. Danielle and discussed. Findings were discussed with the patient and his sonand all questions were answered. Star Mirza DPM Sled Maker [facility] [place] Department of Surgery Division of Vascular Surgery and Endovascular Therapy documented in this encounter Plan of Treatment Name Type Priority Associated Diagnoses Order S chedule MS DEBRIDEMENT, MS Charge Routine Type 2 diabetes mellitus Ordered: 10/04/2019 SKIN, SUB-Q with diabetic peripheral TISSUE,=<20 SQ CM angiopathy and gangrene , without long-term current use of insulin ( HCCode) S/P transmetatarsal amputation of foot, right (HCCode) PAD (peripheral artery disease) (HCCode ) Post-operative s cardenas Encounter for post surgical wound check Type 2 diabetes mellitus with diabetic peripheral angiopathy without gangrene, with long-term current use of insulin (HCCo de) Wound eschar of foot Status post transmetatarsal amputation of foot, right (HCCode) Controlled type 2 diabetes mellitus with diabetic peripheral angiopathy and gangrene, with long-term current use of insulin (HCCode) Postoperative wound dehiscence, subsequent encounter Health Maintenance Due Date Last Done Comments [...] filedocumented in this encounter Visit Diagnoses Diagnosis Postoperative wound dehiscence, subseque nt encounter - Primary Type 2 diabetes mellitus with diabetic p eripheral angiopathy and gangrene, without long-term current use of insulin (HCCode ) S/P transmetatarsal amputation of foot, right (HCCode) PAD (peripheral artery disease) (HCCode) Unspecified disorders of arteries and ar terioles Post-operative state Other postprocedural status Encounter for post surgical wound check Type 2 diabetes mellitus with diabetic p eripheral angiopathy without gangrene, with long-term current use of insulin (HCCode ) Wound eschar of foot Unspecified disorder of skin and subcuta neous tissue Status post transmetatarsal amputation o f foot, right (HCCode) Controlled type 2 diabetes mellitus with diabetic peripheral angiopathy and gangrene, with long-term current use of insulin (H CCode) documented in this encounter Insurance Payer Benefit Plan / Subscriber ID Effective Phone Address T ype Group Dates [facility] [place] 2019-Prese [address]MO - RNPO PCP nt [id number] [place] [address] documented as of this encounter
--- NOTE | 2019-11-05 12:46 | ER ---
Nurse's Notes [facility] Name: Dayton Grijalva Age: 58 yrs Sex: Male : 1960 Arrival Date: 11/05/2019 Time: 10:22 Bed 3 Private MD: Diagnosis: Gangrene, not elsewhere classified;Hypoglycemia, unspecified Presentation: 11/04 10:24 Chief complaint: EMS states: Slight AMS with diapghoresis this morning, BGL at 50 on ca1 scene, given oral glucose, BGL went up to 93, A\T\Ox4. Pt on scheduled dialysis M/WF, last dialysis on Tuesday, next schedule at 11am today.Denies pain at this time. Coronavirus screen: Client denies travel out of the [place] in the last 14 days. At this time, the client does not indicate any symptoms associated with coronavirus-19. Ebola Screen: Patient negative for fever greater than or equal to 101.5 degrees Fahrenheit, and additional compatible Ebola Virus Disease symptoms Patient denies exposure to infectious person. Patient denies travel to an Ebola-affected area in the 21 days before illness onset. No symptoms or risks identified at this time. Initial Sepsis Screen: Does the patient meet any 2 criteria? No. Patient's initial sepsis screen is negative. Does the patient have a suspected source of infection? No. Patient's initial sepsis screen is negative. Risk Assessment: Do you want to hurt yourself or someone else? Patient reports no desire to harm self or others. Onset of symptoms was November 05, 2019. 10:24 Method Of Arrival: EMS: [facility] ca1 10:24 Acuity: [facility] 3 ca1 Historical: - Allergies: 10:37 No Known Allergies; ca1 - Home Meds: 10:37 aspirin 81 mg Oral chew 1 tab once daily [Active]; carvedilol 12.5 mg Oral tab 1 tab 2 ca1 times per day [Active]; gabapentin 300 mg Oral cap 1 cap daily [Active]; spironolactone 25 mg Oral tab 1 tab once daily [Active]; Glipizide Oral [Active]; Hydralazine Oral [Active]; atorvastatin oral oral [Active]; - PMHx: 10:37 Diabetes - IDDM; HD-MWF; Hypertension; ca1 - PSHx: 11:59 Heart Surgery; amputation of R toes; ca1 - Immunization history:: Adult Immunizations up to date. - Social history:: Smoking status: Patient denies any tobacco usage or history of. - Family history:: not pertinent. - Hospitalizations: : No recent hospitalization is reported. Screenin:37 Abuse screen: Denies threats or abuse. Denies injuries from another. Nutritional ca1 screening: No deficits noted. Tuberculosis screening: No symptoms or risk factors identified. Fall Risk IV access (20 points). Assessment: 10:37 General: Appears in no apparent distress. comfortable, Behavior is calm, cooperative, ca1 appropriate for age. Pain: Denies pain. Neuro: Level of Consciousness is awake, alert, obeys commands, Oriented to person, place, time, situation. Cardiovascular: Heart tones S1 S2 present Capillary refill < 3 seconds Patient's skin is warm and dry. Cardiovascular: Dialysis shunt: in the left bicep, with palpable thrill, with auscultated bruit, with no erythema, with no edema, no bleeding noted. Respiratory: Airway is patent Respiratory effort is even, unlabored, Respiratory pattern is regular, symmetrical, Breath sounds are clear bilaterally. GI: Abdomen is round non-distended, Bowel sounds present X 4 quads. Abd is soft and non tender X 4 quads. : No signs and/or symptoms were reported regarding the genitourinary system. EENT: No signs and/or symptoms were reported regarding the EENT system. Derm: Skin is intact, is healthy with good turgor, Skin is pink, warm \T\ dry. Bandage with nica warp noted on R foot. Reports amputation of 5 toes on R foot 2 months ago. Dressing appears dry, intact. Pt denies any complains regarding R foot. Musculoskeletal: Amputation of well healed Circulation, motion, and sensation intact. Capillary refill < 3 seconds. 10:44 Reassessment: Nithin Son [phone]. ca1 10:53 Reassessment: Pt to CT via stretcher. ca1 11:10 Reassessment: Patient appears in no apparent distress at this time. Patient and/or ca1 family updated on plan of care and expected duration. Pain level reassessed. Patient is alert, oriented x 3, equal unlabored respirations, skin warm/dry/pink. Pt talking on the Cell phone. 11:19 Reassessment: Snacks given per order by Dr. Huynh. ca1 12:10 Reassessment: Patient appears in no apparent distress at this time. Patient and/or ca1 family updated on plan of care and expected duration. Pain level reassessed. Patient is alert, oriented x 3, equal unlabored respirations, skin warm/dry/pink. Dr. Huynh orders more snacks served to pt. 13:13 Reassessment: BGL 166. Reassessment: Patient appears in no apparent distress at this ca1 time. Patient and/or family updated on plan of care and expected duration. Pain level reassessed. Patient is alert, oriented x 3, equal unlabored respirations, skin warm/dry/pink. Patient states feeling better. Patient states symptoms have improved. 13:48 Reassessment: Patient appears in no apparent distress at this time. Patient is alert, ca1 oriented x 3, equal unlabored respirations, skin warm/dry/pink. Derm: Wound noted right foot Wound is Noted black discoloration on the dorsum, plantar of the R foot, greenish drainage noted from the stump, foul smelling . No wound vac noted. 14:20 Reassessment: PT stays in the ER and will start IV ABX for wound on R foot. ca1 15:12 Reassessment: Patient appears in no apparent distress at this time. Patient and/or ca1 family updated on plan of care and expected duration. Pain level reassessed. Patient is alert, oriented x 3, equal unlabored respirations, skin warm/dry/pink. 16:01 Reassessment: Patient appears in no apparent distress at this time. Patient and/or ca1 family updated on plan of care and expected duration. Pain level reassessed. Patient is alert, oriented x 3, equal unlabored respirations, skin warm/dry/pink. 17:00 Reassessment: Patient appears in no apparent distress at this time. Patient and/or ca1 family updated on plan of care and expected duration. Pain level reassessed. Patient is alert, oriented x 3, equal unlabored respirations, skin warm/dry/pink. 17:17 Reassessment: Called for report, nurse ask to call back after 10 minutes. ca1 17:47 Reassessment: Patient appears in no apparent distress at this time. Patient and/or ca1 family updated on plan of care and expected duration. Pain level reassessed. Patient is alert, oriented x 3, equal unlabored respirations, skin warm/dry/pink. Reassessment: Report given to SUNITA Ann. 18:38 Reassessment: Patient appears in no apparent distress at this time. Patient and/or ca1 family updated on plan of care and expected duration. Pain level reassessed. Patient is alert, oriented x 3, equal unlabored respirations, skin warm/dry/pink. 19:12 Reassessment: Patient appears in no apparent distress at this time. Patient and/or ca1 family updated on plan of care and expected duration. Pain level reassessed. Patient is alert, oriented x 3, equal unlabored respirations, skin warm/dry/pink. 19:21 Reassessment: Patient appears in no apparent distress at this time. Patient is alert, ca1 oriented x 3, equal unlabored respirations, skin warm/dry/pink. Vital Signs: 10:24 BP 117 / 70; Pulse 76; Resp 18 S; Temp 99.4(O); Pulse Ox 94% on R/A; Weight 98.8 kg ca1 (R); Height 6 ft. 1 in. (185.42 cm) (R); Pain 0/10; 11:10 BP 140 / 77; Pulse 68; Resp 16 S; Pulse Ox 97% on R/A; ca1 12:10 BP 152 / 72; Pulse 72; Resp 16 S; Pulse Ox 97% on R/A; ca1 13:14 BP 145 / 65; Pulse 70; Resp 16 S; Pulse Ox 96% on R/A; ca1 15:00 BP 164 / 79; Pulse 71; Resp 16 S; Pulse Ox 95% on R/A; ca1 16:01 BP 160 / 77; Pulse 71; Resp 16 S; Pulse Ox 96% on R/A; ca1 17:00 BP 167 / 83; Pulse 75; Resp 18 S; Pulse Ox 98% on R/A; ca1 18:00 BP 171 / 77; Pulse 77; Resp 16 S; Pulse Ox 95% on R/A; ca1 19:01 BP 170 / 80; Pulse 75; Resp 15 S; Pulse Ox 96% on R/A; ca1 10:24 Body Mass Index 28.74 (98.80 kg, 185.42 cm) ca1 ED Course: 10:22 Patient arrived in ED. rn 10:22 Cristofer Huynh MD is Attending Physician. rn 10:24 Ruby Sandoval, SUNITA is Primary Nurse. ca1 10:32 Missed attempt(s): 20 gauge in right wrist. Bleeding controlled, band aid applied, jl7 catheter tip intact. 10:34 Triage completed. ca1 10:35 Missed attempt(s): 20 gauge in right forearm. Bleeding controlled, band aid applied, jl7 catheter tip intact. 10:37 Arm band placed on right wrist. ca1 10:37 Patient has correct armband on for positive identification. electronic device monitor on. Pulse ca1 ox on. NIBP on. Warm blanket given. 10:43 Initial lab(s) drawn, by ED staff, sent to lab. Inserted saline lock: 22 gauge in right ca1 antecubital area, using aseptic technique. ,using aseptic technique. by SUNITA Guerrero Blood collected. 10:56 CT Head Brain wo Cont In Process Unspecified. EDMS 11:19 Diet: Patient given snack. Patient given juice. Tolerated well. ca1 12:10 Diet: Patient given snack. Patient given juice. Tolerated well. ca1 14:15 First set of blood cultures drawn by me. ca1 14:19 Inserted saline lock: 22 gauge in right antecubital area, using aseptic technique. ca1 Blood collected. 14:20 Second set of blood cultures drawn by me. ca1 14:20 Inserted saline lock: 22 gauge in right upper arm, using aseptic technique. Blood ca1 collected. 14:36 Blood Culture Adult (2) Sent. ca1 15:10 Dressings: non-adherent dressing x 4 right foot 4X4s X 4; right foot. Wound care:. ca1 Wound care: to amputation/stump on R foot located on right foot was cleaned with Hibiclens, irrigated with normal saline, dressed with 4X4s, Patient tolerated well. 15:13 No provider procedures requiring assistance completed. Patient transferred, IV remains ca1 in place. Administered Medications: 14:25 Drug: Zosyn 3.375 grams Route: IVPB; Infused Over: 60 mins; Site: right antecubital; ca1 15:24 Follow up: Response: No adverse reaction; IV Status: Completed infusion ca1 15:01 Drug: vancoMYCIN 1 grams Route: IVPB; Infused Over: 2 hrs; Site: right antecubital; ca1 16:35 Follow up: Response: No adverse reaction; IV Status: Completed infusion; IV Intake: ca1 250ml Point of Care Testing: Blood Glucose: 10:37 Blood Glucose: 72 mg/dL; ca1 11:42 Blood Glucose: 108 mg/dL; ca1 Ranges: Intake: 16:35 IV: 250ml; Total: 250ml. ca1 Outcome: 12:45 Discharge ordered by . rn 14:27 ER care complete, transfer ordered by MD. rn 19:21 Transferred by ground EMS to [facility], Transfer form completed. ca1 X-rays sent w/ patient. 19:21 Condition: stable 19:21 Instructed on the need for transfer. 19:21 Patient left the ED. ca1 Signatures: Dispatcher [employer] EDMS Cristofer Huynh MD MD rn Leal, Jahala, RN RN jl7 Ruby Sandoval RN RN ca1 Corrections: (The following items were deleted from the chart) 10:42 10:37 Derm: Skin is intact, is healthy with good turgor, Skin is pink, warm \T\ dry. ca1 ca1 11:59 10:37 PSHx: None; ca1 ca1 13:54 10:37 Derm: Skin is intact, is healthy with good turgor, Skin is pink, warm \T\ dry. ca1 Bandage with nica warp noted on R foot. Reports amputation of 5 toes on R foot 2 months ago. Dressing appears dry, intact. ca1 16:01 13:48 Derm: Wound noted right foot Wound is Noted black discoloration on the dorsum of ca1 the R foot, greenish drainage noted from the stump, foul smelling ca1 16:03 15:58 Reassessment: [facility] ca1 ca1 17:15 10:37 Musculoskeletal: Circulation, motion, and sensation intact. Capillary refill < 3 ca1 seconds, ca1 17:15 10:37 Derm: Skin is intact, is healthy with good turgor, Skin is pink, warm \T\ dry. ca1 Bandage with nica warp noted on R foot. Reports amputation of 5 toes on R foot 2 months ago. Dressing appears dry, intact. Pt denies any complains regarding R foot. ca1 17:15 14:20 Reassessment: PT stays in the ER and will start IV ABX ca1 ca1 17:35 13:48 Derm: Wound noted right foot Wound is Noted black discoloration on the dorsum, ca1 plantar of the R foot, greenish drainage noted from the stump, foul smelling . No wound vac noted ca1 17:46 10:37 Cardiovascular: Dialysis shunt: in the left bicep, with palpable thrill, with ca1 auscultated bruit, with no erythema, with no edema, no bleeding noted ca1
--- NOTE | 2019-11-05 12:46 | EDPHYS ---
Physician Documentation [facility] Name: Dayton Grijalva Age: 58 yrs Sex: Male : 1960 Arrival Date: 11/05/2019 Time: 10:22 Bed 3 Private MD: ED Physician Cristofer Huynh HPI: 11/04 10:25 This 58 yrs old Male presents to ER via Unassigned with complaints of Altered rn Mental Status. 10:25 The patient presents with decreased responsiveness. Onset: The symptoms/episode rn began/occurred this morning. Possible causes: low blood sugar, unknown. Current symptoms: In the emergency department the patient's symptoms have improved. The patient has experienced similar episodes in the past. The patient has not recently seen a physician. Reports feeling generalized weakness for 2 days, today family called 911 for generalized weakness and diaphoresis, glucose was in 50s, EMS administered oral glucose with improvement of symptoms, diaphoresis resolved. Patient still reports generalized weakness. Denies pain. No head injury. No vomiting/diarrhea. Reports compliant with dialysis. . Historical: - Allergies: 10:37 No Known Allergies; ca1 - Home Meds: 10:37 aspirin 81 mg Oral chew 1 tab once daily [Active]; carvedilol 12.5 mg Oral tab 1 tab 2 ca1 times per day [Active]; gabapentin 300 mg Oral cap 1 cap daily [Active]; spironolactone 25 mg Oral tab 1 tab once daily [Active]; Glipizide Oral [Active]; Hydralazine Oral [Active]; atorvastatin oral oral [Active]; - PMHx: 10:37 Diabetes - IDDM; HD-MWF; Hypertension; ca1 - PSHx: 11:59 Heart Surgery; amputation of R toes; ca1 - Immunization history:: Adult Immunizations up to date. - Social history:: Smoking status: Patient denies any tobacco usage or history of. - Family history:: not pertinent. - Hospitalizations: : No recent hospitalization is reported. ROS: 10:25 Constitutional: Negative for fever, chills, and weight loss, Eyes: Negative for injury, rn pain, redness, and discharge, Neck: Negative for injury, pain, and swelling, Cardiovascular: Negative for chest pain, palpitations, and edema, Respiratory: Negative for shortness of breath, cough, wheezing, and pleuritic chest pain, Abdomen/GI: Negative for abdominal pain, nausea, vomiting, diarrhea, and constipation, MS/Extremity: Negative for injury and deformity, Skin: Negative for injury, rash, and discoloration, Neuro: Negative for headache, numbness, tingling, and seizure. Exam: 10:25 Constitutional: This is a well developed, well nourished patient who is awake, rn answering questions, a little slow to respond. Head/Face: Normocephalic, atraumatic. Eyes: Pupils equal round and reactive to light, extra-ocular motions intact. Lids and lashes normal. Conjunctiva and sclera are non-icteric and not injected. Cornea within normal limits. Periorbital areas with no swelling, redness, or edema. ENT: + dry MM Cardiovascular: Regular rate and rhythm. No pulse deficits. Respiratory: No increased work of breathing, no retractions or nasal flaring. Abdomen/GI: soft, non-tender Skin: Warm, + right foot with erythema, half of foot with black/gangrene, distal tip of foot with drainage and foul smell. MS/ Extremity: No cyanosis. + bilateral midfoot amputations. Neuro: Awake, GCS 15, oriented to person, place, and situation. Cranial nerves II-XII grossly intact. Motor strength 4/5 in all extremities. Sensory grossly intact. 11:08 ECG was reviewed by the Attending Physician. rn Vital Signs: 10:24 BP 117 / 70; Pulse 76; Resp 18 S; Temp 99.4(O); Pulse Ox 94% on R/A; Weight 98.8 kg ca1 (R); Height 6 ft. 1 in. (185.42 cm) (R); Pain 0/10; 11:10 BP 140 / 77; Pulse 68; Resp 16 S; Pulse Ox 97% on R/A; ca1 12:10 BP 152 / 72; Pulse 72; Resp 16 S; Pulse Ox 97% on R/A; ca1 13:14 BP 145 / 65; Pulse 70; Resp 16 S; Pulse Ox 96% on R/A; ca1 15:00 BP 164 / 79; Pulse 71; Resp 16 S; Pulse Ox 95% on R/A; ca1 16:01 BP 160 / 77; Pulse 71; Resp 16 S; Pulse Ox 96% on R/A; ca1 17:00 BP 167 / 83; Pulse 75; Resp 18 S; Pulse Ox 98% on R/A; ca1 18:00 BP 171 / 77; Pulse 77; Resp 16 S; Pulse Ox 95% on R/A; ca1 19:01 BP 170 / 80; Pulse 75; Resp 15 S; Pulse Ox 96% on R/A; ca1 10:24 Body Mass Index 28.74 (98.80 kg, 185.42 cm) ca1 MDM: 10:22 Patient medically screened. rn 12:44 Differential Diagnosis: volume depletion, hypoglycemia, dehydration, hepatic rn encephalopathy. Data reviewed: vital signs, nurses notes, lab test result(s), EKG, radiologic studies, CT scan, and as a result, I will discharge patient. Counseling: I had a detailed discussion with the patient and/or guardian regarding: the historical points, exam findings, and any diagnostic results supporting the discharge/admit diagnosis, lab results, radiology results, the need for outpatient follow up, to return to the emergency department if symptoms worsen or persist or if there are any questions or concerns that arise at home. Response to treatment: the patient's symptoms have markedly improved after treatment, and as a result, I will discharge patient. Special discussion: I discussed with the patient/guardian in detail that at this point there is no indication for admission to the hospital. It is understood, however, that if the symptoms persist or worsen the patient needs to return immediately for re-evaluation. 13:40 ED course: Pt initially stated no changes in wound, son states otherwise, now patient rn states black skin changes in last 2 days. Will talk to son to see where surgery performed. . 14:54 ED course: Still waiting financial management consultant back from patient's surgeon in [place], Dr. Star Mirza. . 11/04 10:24 Order name: CBC with Diff; Complete Time: 15:16 rn 11/04 10:24 Order name: Basic Metabolic Panel; Complete Time: 11:37 rn 11/04 10:24 Order name: AMMONIA; Complete Time: 11:37 rn 11/04 10:55 Order name: Glucose, Ancillary Testing; Complete Time: 11:14 EDMS 11/04 11:53 Order name: Glucose, Ancillary Testing; Complete Time: 11:56 EDMS 11/04 12:53 Order name: CBC Smear Scan; Complete Time: 15:16 EDMA 11/04 10:24 Order name: CT Head Brain wo Cont; Complete Time: 11:14 rn 11/04 10:24 Order name: IV Start; Complete Time: 10:43 rn 11/04 10:24 Order name: Glucose Level; Complete Time: 10:43 rn 11/04 10:24 Order name: EKG; Complete Time: 10:25 rn 11/04 13:24 Order name: Glucose, Ancillary Testing; Complete Time: 15:16 EDMS 11/04 14:16 Order name: Blood Culture Adult (2) ca1 11/04 10:24 Order name: EKG - Nurse/Tech; Complete Time: 10:53 rn EC:08 Rate is 70 beats/min. Rhythm is regular. QRS [place] is Normal. LA interval is normal. QRS rn interval is normal. QT interval is normal. No Q waves. T waves are Normal. No ST changes noted. Clinical impression: NSR w/ Non-specific ST/T Changes. Interpreted by me. Reviewed by me. Administered Medications: 14:25 Drug: Zosyn 3.375 grams Route: IVPB; Infused Over: 60 mins; Site: right antecubital; ca1 15:24 Follow up: Response: No adverse reaction; IV Status: Completed infusion ca1 15:01 Drug: vancoMYCIN 1 grams Route: IVPB; Infused Over: 2 hrs; Site: right antecubital; ca1 16:35 Follow up: Response: No adverse reaction; IV Status: Completed infusion; IV Intake: ca1 250ml Point of Care Testing: Blood Glucose: 10:37 Blood Glucose: 72 mg/dL; ca1 11:42 Blood Glucose: 108 mg/dL; ca1 Ranges: Critical Glucose Levels:Adult <50 mg/dl or >400 mg/dl <40 mg/dl or >180 mg/dl Disposition: 11/05/19 14:27 Transfer ordered to [facility]. Diagnosis are Gangrene, not elsewhere classified, Hypoglycemia, unspecified. - Reason for transfer: Higher level of care. - Accepting physician is . - Condition is Stable. - Problem is an ongoing problem. - Symptoms have worsened. Signatures: Dispatcher [employer] EDMS Cristofer Huynh MD MD rn Acob, SUNITA Beltran RN ca1 Corrections: (The following items were deleted from the chart) 11:59 10:37 PSHx: None; ca1 ca1 13:40 10:25 Constitutional: This is a well developed, well nourished patient who is awake, rn answering questions, a little slow to respond. Head/Face: Normocephalic, atraumatic. Eyes: Pupils equal round and reactive to light, extra-ocular motions intact. Lids and lashes normal. Conjunctiva and sclera are non-icteric and not injected. Cornea within normal limits. Periorbital areas with no swelling, redness, or edema. ENT: + dry MM Cardiovascular: Regular rate and rhythm. No pulse deficits. Respiratory: No increased work of breathing, no retractions or nasal flaring. Abdomen/GI: soft, non-tender MS/ Extremity: Pulses equal, no cyanosis. + bilateral midfoot amputations. Neuro: Awake, GCS 15, oriented to person, place, and situation. Cranial nerves II-XII grossly intact. Motor strength 4/5 in all extremities. Sensory grossly intact. rn 13:40 12:45 11/05/2019 12:45 Discharged to Home. Impression: Hypoglycemia, unspecified. rn Condition is Stable. Forms are Medication Reconciliation Form, Thank You Letter, Antibiotic Education, Prescription Opioid Use. Follow up: Private Physician; When: As needed; Reason: Recheck today's complaints, Re-evaluation by your physician. Problem is new. Symptoms have improved. rn 15:20 10:25 Constitutional: This is a well developed, well nourished patient who is awake, rn answering questions, a little slow to respond. Head/Face: Normocephalic, atraumatic. Eyes: Pupils equal round and reactive to light, extra-ocular motions intact. Lids and lashes normal. Conjunctiva and sclera are non-icteric and not injected. Cornea within normal limits. Periorbital areas with no swelling, redness, or edema. ENT: + dry MM Cardiovascular: Regular rate and rhythm. No pulse deficits. Respiratory: No increased work of breathing, no retractions or nasal flaring. Abdomen/GI: soft, non-tender Skin: Warm, + right foot with erythema, half of foot with black/gangrene, distal tip of foot with drainage and foul smell. MS/ Extremity: Pulses equal, no cyanosis. + bilateral midfoot amputations. Neuro: Awake, GCS 15, oriented to person, place, and situation. Cranial nerves II-XII grossly intact. Motor strength 4/5 in all extremities. Sensory grossly intact. rn 19:21 14:27 11/05/2019 14:27 Transfer ordered to [facility]. ca1 Diagnosis is Gangrene, not elsewhere classified; Hypoglycemia, unspecified. Reason for transfer: Higher level of care. Accepting physician is . Condition is Stable. Problem is an ongoing problem. Symptoms have worsened. rn
[2019-11-05 12:53] LABS: Blood Morphology Comment NOT SEEN (NOT SEEN); Platelet Estimate ADEQ; White Blood Cell Scan OK
[2019-11-05] MEDS ORDERED: PIPER/TAZO/NS 3.375gm 3.375 GM/100 ML BAG ONE (14:10)
[2019-11-05] MEDS ORDERED: VANCOMYCIN/NS 1 gm 1 GM/250 ML BAG IV ONE (14:15)
[2019-11-08 12:00] VITALS: TEMP 99.4
[2019-11-08 12:10] VITALS: BP 170/80; O2SAT 96
== END 2019-11-05 19:21 | disposition short-term general hospital (02) ==
LOC: ER 10:17
DX: E11.649 Type 2 diabetes mellitus with hypoglycemia without coma (principal); I96 Gangrene, not elsewhere classified; E11.52 Type 2 diabetes mellitus with diabetic peripheral angiopathy with gangrene; Z79.82 Long term (current) use of aspirin; Z99.2 Dependence on renal dialysis
CPT/HCPCS: 96365; 93005; 87040 ×2; 85025; 80048; 36415; 82140; 82947 ×3; 70450; 99285; J2543; J3370

== ENCOUNTER 2020-06-21 14:57 | Emergency (ER) | payer OTHER ==
--- OUTSIDE RECORDS SUMMARY | 2020-06-21 15:28 | XMS REPORT | Continuity of Care Document ---
:1960 Author Organization [facility] t Address [address] [place] [address] [address] [place] [id number] Care Team Providers Name Role Phone Mukund Mcgraw MD, Rose Primary Care Physician [phone] Hermes LUU, Star Beltran Attending Clinician Rachel LOGAN Attending Clinician Adam LOGAN Attending Clinician Glen Lagunas MD Attending Clinician Kenia LOGAN Attending Clinician Bassem LOGAN Attending Clinician Harini LAL, Vikas Attending Clinician Unavailable Ruby CLOUD Attending Clinician Unavailable Vikas Cloud DPM Attending Clinician Lionel Hagan MD Attending Clinician Joon TAYLOR Attending Clinician Unavailable Flavio LOGAN, PLizeth Attending Clinician Lisa Villalba MD Attending Clinician Adelso Hewitt MD Attending Clinician Cortez MUNIZ Attending Clinician Unavailable Es Attending Clinician Malik Worrell MD Attending Clinician Abimbola Hines MD Attending Clinician Margarette LOGAN Attending Clinician Willis LOGAN Attending Clinician Jennifer LOGAN Attending Clinician ABIMBOLA HINES Attending Clinician Unavailable James LOGAN Attending Clinician Pierce Sarmiento DO Attending Clinician Steve Danielle MD Attending Clinician Maria C Land MD Attending Clinician [phone] Marie LOGAN Attending Clinician MARIA C LAND Attending Clinician Unavailable Feliz Lundberg MD Attending Clinician Loyda LOGAN Attending Clinician Britany Fontaine MD Attending Clinician Jatinder DORSEY Attending Clinician Unavailable Fela Danielle MD Attending Clinician Kandy Elias MD Attending Clinician Sherrill Kimball Attending Clinician Saira LOGAN Attending Clinician Jerome Burk Attending Clinician Susanna Arora Attending Clinician Unavailable Duarte SPARKS Attending Clinician NATALIO LAY Attending Clinician Unavailable Keny Hagan MD Attending Clinician Merchant LOGAN Attending Clinician KENY HAGAN Attending Clinician Unavailable TAJIK Attending Clinician Unavailable ANANDA Attending Clinician Unavailable RACHEL Admitting Clinician Unavailable Cortez MUNIZ Admitting Clinician Unavailable MARGARETTE Admitting Clinician Unavailable MARIA C LAND Admitting Clinician Unavailable KANDY ELIAS Admitting Clinician Unavailable BENITEZ Admitting Clinician Unavailable KENY HAGAN Admitting Clinician Unavailable Payers Payer Name Policy Type Policy Effective Date Expiration Source Number Date ARAMIS [id number] 2020 [facility] [id number] 2020 -PresentMaps Contracted ARAMIS [id number] 2019 [facility] 00:00:00 [facility] [id number] 2020 -PresentHMO Problems Condition Condition Condition Status Onset Resolution Last Treating Co mments Source Name Details Category Date Date Treatment Clinician Date Status Status Disease Active [facility] post split 325 Regi k[facility] - thickness thickness 00:00: Medi magdaleno skin graft skin graft 00 Ce nter Pressure Pressure Disease [facility] of 05[facility] - right right 00:00: Medical heel, heel, 00 Center stage 4 stage 4 Nonhealing Nonhealing Disease Active [facility] surgical surgical 03-12 [facility] - wound wound 00:00: Medical 00 Center Nonhealing Nonhealing Disease Active [facility]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 03-11 [facility]i k[facility] - stump stump 00:00: Medical 00 Center Sepsis, Sepsis, Disease Active 2019-[address] [facility] due to due to 03-07 [facility] - unspecifie unspecifie 00:00: Me dical d d 00 Center organism, organism, unspecifie unspecifie d whether d whether acute acute organ organ dysfunctio dysfunctio n present n present Pressure Pressure Disease Active 2019-03 [facility] injury of injury of 03-07 [facility] - right right 00:00: Medical heel, heel, 00 Center stage 4 stage 4 Osteomyeli Osteomyeli Disease Active 2019-[address] tis of tis of 03-07 [facility] - right foot right foot 00:00: Me dical 00 Center Amputation Amputation Disease Active [facility] stump stump 12-04 [facility] - infection infection 00:00: Medi magdaleno 00 Center Gangrene Gangrene Disease Active [facility] of right of right 11-[facility] - foot foot 00:00: Medical 00 Center HTN HTN Disease Active [facility] (hypertens (hypertens - Regi kes - ion) ion) 00:00: Medical 00 Center Thrombophl Thrombophl Disease Active [facility] ebitis ebitis 10-19 [facility] - 00:00: Medical 00 [place] Status Status Disease Active [facility] post post 10-17 [facility] - transmetat transmetat 00:00: Me dical arsal arsal 00 Center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 of foot, of foot, right right Status Status Disease Active [facility] post skin post skin 10-17 Luke s - graft graft 00:00: Medical using using 00 Center Integra Integra wound wound dressing dressing DM DM Disease Active [facility] (diabetes (diabetes 10-17 [facility] - mellitus) mellitus) 00:00: [facility] magdaleno type II, type II, 00 Center controlled controlled , with , with peripheral peripheral vascular vascular disorder disorder Ischemia Ischemia Disease Active [facility] of foot of foot 06-13 [facility] - 00:00: Medical 00 [place] Type 2 Type [address] [facility] diabetes diabetes 06-13 [facility] - mellitus mellitus 00:00: Medica l with with 00 Center diabetic diabetic peripheral peripheral angiopathy angiopathy and and gangrene, gangrene, with with long-term long-term current current use of use of insulin insulin PAD PAD Disease Active [facility] (periphera (periphera 06-13 Regi k[facility] - l artery l artery 00:00: Medica l disease) disease) 00 Center CAD CAD Disease Active [facility] (coronary (coronary 09-22 Meth virgen artery artery 00:00: st disease) disease) 00 Hypertensi Hypertensi Disease Active [facility] on on 09-22 Methodi 00:00: st 00 S/P CABG x S/P CABG x Disease Active [facility] 3 3 09-22 Methodi 00:00: st 00 Acute Acute Disease Active [facility] blood loss blood loss 09-22 Me thodi anemia anemia 00:00: st 00 Blind left Blind left Disease Active [facility] eye eye 09-22 Methodi 00:00: st 00 Type 2 Type 2 Disease Active [facility] diabetes diabetes 7-19 Method i mellitus mellitus 00:00: st 00 CAD in CAD in Disease Active Overview: [place] [facility] [place] Methodi artery artery 00:00: g of this note might be different from the original. Added automatic ally from request for surgery [id number] ESRD on ESRD on Disease Active [facility] St hemodialys hemodialys [facility] - is is Medical Center ESRD (end ESRD (end Disease Active [facility] [place] stage stage [facility] - renal renal Medical disease) disease) Center on on dialysis dialysis Non-healin Non-healin Disease Resolve 2020-05-29 2020-05-[address] [facility] g wound of g wound of d 4 00:00:00 07:54:06 [facility] -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 00:00: Me dical stump stump 00 Center Cellulitis Cellulitis Disease Resolve 2019-11-17 2019-11-[address] [facility] of right of right d 9 00:00:00 09:10:06 [facility] - lower lower 00:00: Medical extremity extremity 00 [facility] er Hyperkalem Hyperkalem Disease Resolve 2019-11-17 2019-11-[address] ia ia d 9 00:00:00 09:10:05 [facility] - 00:00: Medical 00 [place] Sepsis Sepsis Disease Resolve 2019-11-17 2019-11-[address] [facility] d 8-31 00:00:00 09:10:02 [facility] - 00:00: Medical 00 Center Allergies, Adverse Reactions, Alerts Allergy Allergy Status Severity Reaction(s) Onset Inactive Treating Comm ents Source Name Type Date Date Clinician No Known DA Active [facility] 6[facility]10 [place] [facility]era 00:00: d nces 00 Medical Center Family History Family Member Diagnosis Comments Start Date Stop Date Source Natural father Diabetes [facility] Natural mother Diabetes [facility] Social History Social Habit Start Date Stop Date Quantity Comments Source History SDOH [facility] - Alcohol Std Drinks Medica l Center History SDOH [facility] - Alcohol Binge Medical [facility] Sex Assigned At [facility] Exposure to Not sure [facility] - SARS-CoV-2 (event) Medica l [place] History of tobacco Current smoker [facility] Muslim use Tobacco use and 2020-05-30 2020-05-[address] [facility] [address] Regi kes - exposure 00:00:00 00:00:00 Medical Center Alcohol intake 2020-05-30 2020-05-[address] [facility] [address] [facility] - 00:00:00 00:00:00 non-drinker of Medical Ce nter alcohol (finding) Tobacco Comment 2019-09-12 2019-09-[address] [facility] - 00:00[facility]00 00:00:00 ago Medical Center History SDOH 2019-06-14 2019-06-[address] [facility] - Alcohol Frequency 00:00:00 00:00:00 Medical Center Smoking Status Start Date Stop Date Source Former smoker 2020-05-30 00:00:00 2020-05-30 00:00:[address] [facility] Medications Ordered Filled Start Stop Current Ordering Indication Dosage Frequency Signature Comments Components Source Medication Medication Date Date Medication? Clinician (SIG) Name Name mupirocin 2020- Yes 1g [id number] Apply [address] [address] (BACTROBAN) 4-16 04-23 [id number] topically [facility] - 2 % 00:00: 23:59 3W 3 (three) Medical ointment 00 :00 times a Center week MON/TUE/ I for 7 days. acetaminoph Yes 500mg Take [address] en 4-15 mg by [facility] - (TYLENOL) 18:45: mouth Medical 500 MG 20 every 6 Center tablet (six) hours as needed for Pain. calcium Yes 600mg Take 600 [facility] carbonate 4-15 mg by [facility] - (OS-MAGDALENO) 18:45: mouth 3 Medica l 600 mg 20 (three) Center calcium times (1,500 mg) daily with Tab meals. folic Yes 1{tbl} QD Take [address] [address] acid-multiv 4-15 tablet by Sylvia es - itamins 00:00: mouth Medical (NEPHRO-VIT 00 daily. Center E) 0.8 mg Tab tablet NIFEdipine 2021- Yes 60mg QD Take [address] [facility] (ADALAT CC) 4-15 04-15 tablet (60 L ukes - 60 MG 24 hr 00:00: 23:59 mg total) Medical tablet 00 :00 by mouth Center daily. polyethylen 2020- Yes 17g QD Take [address] e glycol 4-15 04-18 by mouth [facility] - (GLYCOLAX) 00:00: 23:59 daily for M edical 17 gram 00 :00 3 days. Center packet tamsulosin Yes .4mg QD Take 1 [facility] (FLOMAX) 4-14 capsule [facility] - 0.4 mg Cap 00:00: (0.4 mg Medi magdaleno 24 hr 00 total) by Center capsule mouth daily. hydrALAZINE 2021- Yes 100mg [id number] Take [address] [facility] (APRESOLINE 4-14 04-14 [id number] tablet [facility] - ) 100 MG 00:00: 23:59 3D (100 mg Medic al tablet 00 :00 total) by Center mouth 3 (three) times daily. brimonidine Yes 1[drp] Q.5D Administer [facility] (ALPHAGAN) 2-05 1 drop to Meth virgen 0.2 % 00:00: both eyes st ophthalmic 00 2 (two) solution times a day. mupirocin 2020- No 1g QD Apply [address] (BACTROBAN) 03-27 topically Regi kes - 2 % 00:00: 23:59 daily for Medical ointment 00 :00 7 days. Center polyvinyl 2020- No 1[drp] Q.[id number] Place [address] alcohol 03-26 [id number] drop into [facility] - (LIQUIFILM 00:00: 23:59 3D both eyes M edical TEARS) 1.4 00 :00 3 (three) Cent er % times ophthalmic daily for solution 30 days. piperacilli 2020- No 2.25g Inject [facility] n-tazobacta 03-26-09 2.25 g [facility] - m (ZOSYN) 00:00: 23:59 intravenou M edical MBP 2.25 g 00 :00 sly every Cent er in 100 mL 8 (eight) NS hours for 20 days. sodium 2020- No Q.5D Apply [facility] hypochlorit 03-26 topically Regi kes - e (DAKIN'S, 00:00: 23:59 2 (two) Me dical HALF-STRENG 00 :00 times Center ,) 0.25 % daily for external 7 days. solution insulin 2019-03- No 14U QD Inject [address] glargine 1-16 11-15 Units [facility] - (LANTUS) 15:51: 00:00 subcutaneo Me dical 100 unit/mL 50 :00 usly Center injection nightly Use as directed . linezolid 2019-03- No 600mg Q.5D Take [address] (ZYVOX) 600 1-16 11-16 mg by [facility] - mg tablet 07:24: 00:00 mouth 2 Medi magdaleno 40 :00 (two) Center times daily. sulfamethox 2019-03- No 1{tbl} Q.5D Take [address] azole-trime -16 11-16 tablet by Regi ke - thoprim 07:24: 00:00 mouth 2 Medica l (BACTRIM 40 :00 (two) Center DS) 800-160 times mg per daily. tablet epoetin 2019-03 Yes [id number] Inject [address] fredy-epbx 1-16 mL (10,000 [facility] - (RETACRIT) 00:00: Units Medica l 10,000 00 total) Center unit/mL subcutaneo Soln usly 3 injection (three) times a week at bedtime MON/TUE/ I. linezolid 2019-03- No 600mg Q.5D Take [address] (ZYVOX) 600 -16 01-20 tablet [facility] - mg tablet 00:00: 00:00 (600 mg Medi magdaleno 00 :00 total) by Center mouth 2 (two) times daily. ciprofloxac 2019-03- No 500mg Q24H Take [address] in HCl - 12-17 tablet [facility] - (CIPRO) 500 00:00: 23:59 (500 mg Me dical MG tablet 00 :00 total) by Cente r mouth daily for 31 days. meropenem 2019-03- No .5g Q24H Inject 0.[address] (MERREM) -16 12-17 g [facility] - injection 00:00: 23:59 intravenou M edical 500 mg 00 :00 sly daily Center for 31 days. sterile 2019-03- No 500mg Q24H Inject [address] water for 1-16 12-17 mg [facility] - injection 00:00: 23:59 intravenou M edical Soln 10 mL 00 :00 sly daily Cent er with for 31 meropenem days. 500 mg SolR 500 mg traMADoL 2019-03- No 100mg Take 2 [facility] (ULTRAM) 50 1-16 11-26 tablets Luke [facility] - mg tablet 00:00: 23:59 (100 mg Medi magdaleno 00 :00 total) by Center mouth every 12 (twelve) hours as needed for up to 10 days. Max Daily Amount: 200 mg insulin 2019-03 Yes 7U QD Inject [address] [facility] glargine 1-15 Units [facility] - (LANTUS) 00:00: subcutaneo Med ical 100 unit/mL 00 usly Center injection nightly Use as directed . carvediloL 2019-03 No 12.5mg Q.5D Take 0.[address] (COREG) 25 1-15 11-15 tablets [facility] - MG tablet 00:00: 23:59 (12.5 mg Med ical 00 :00 total) by Center mouth 2 (two) times daily. heparin 2019-03- No 5000U Inject [address] injection 1-15 01-20 mL (5,000 Luke [facility] - 5,000 00:00: 00:00 Units Medical units/mL 00 :00 total) Center subcutaneo usly every 12 (twelve) hours. melatonin 5 2019-03- No 5mg Take [address] [facility] [facility] mg Tab 1-15 12-15 tablet (5 [facility] - tablet 00:00: 23:59 mg total) Medic al 00 :00 by mouth Center every night as needed for up to 30 days. polyethylen 2019-03- No 17g Take [address] [facility] e glycol 1-15 11-29 by mouth [facility] - (GLYCOLAX) 00:00: 23:59 daily as Me dical 17 gram 00 :00 needed Center packet (Constipat ion) for up to 14 days. sodium 2019-03- No Q.5D Apply [facility] hypochlorit 1-15 11-22 topically Regi kes - e (DAKIN'S, 00:00: 23:59 2 (two) Me dical HALF-STRENG 00 :00 times Center TH,) 0.25 % daily for external 7 days. solution ondansetron 2019-03 No 4mg Take [address] [facility] (ZOFRAN-ODT 15 -22 tablet (4 Regi kes - ) 4 MG 00:00: 23:59 mg total) Medic al disintegrat 00 :00 by mouth Cent er ing tablet every 8 (eight) hours as needed for up to 7 days. ciprofloxac 2019-03 No 500mg Q24H Take [address] in HCl 15 11-16 tablet [facility] - (CIPRO) 500 00:00: 00:00 (500 mg Me dical MG tablet 00 :00 total) by Cente r mouth daily for 10 days. sterile 2019-03 No 500mg Q24H Inject [address] water for 15 11-16 mg [facility] - injection 00:00: 00:00 intravenou M edical Soln 10 mL 00 :[address] with meropenem 500 mg SolR 500 mg ferrous 2019-03 No 325mg Take [address] [facility] sulfate 325 0-20 10-20 tablet [facility] - (65 FE) MG 00:00: 23:59 (325 mg Med ical tablet 00 :00 total) by Center mouth daily with breakfast. amLODIPine 2019-03 No 10mg QD Take [address] [facility] (NORVASC) 0-20 04-14 tablet (10 Sylvia es - 10 MG 00:00: 00:00 mg total) Medica l tablet 00 :00 by mouth Center daily. sevelamer 2019-03 No 800mg Take [address] [facility] (RENVELA) 0-19 10-19 tablet [facility] - 800 mg 00:00: 23:59 (800 mg Medical tablet 00 :00 total) by Center mouth 3 (three) times daily with meals. hydrALAZINE 2019-03 No 50mg [id number] Take [address] [facility] (APRESOLINE 0-19 04-14 [id number] tablet (50 [facility] - ) 50 MG 00:00: 00:00 3D mg total) Medi magdaleno tablet 00 :00 by mouth 3 Center (three) times daily. carvediloL 2019-03 2020- No 25mg Q.5D Take [address] [facility] (COREG) 25 0-19 11-15 tablet (25 Regi kes - MG tablet 00:00: 00:00 mg total) Me dical 00 :00 by mouth 2 Center (two) times daily. insulin 2019-0 2020- No Q.5D Inject [facility] glargine 11-29 subcutaneo Luke [facility] - (LANTUS 17:21: 00:00 usly 2 Medical SOLOSTAR 00 :00 (two) Center U-100 times INSULIN) daily 7 100 unit/mL units in (3 mL) InPn AM10 units in PM . glipiZIDE 2019- 2020- No 10mg Take [address] (GLUCOTROL) 11-29 by mouth 2 L ukes - 10 MG 17:17: 00:00 (two) Medical tablet 52 :00 times Center daily before meals. atorvastati 2019- 2020- No 40mg QD Take [address] n (LIPITOR) 11-29 by mouth Sylvia es - 40 MG 17:12: 00:00 daily. Medical tablet 27 :00 Center atorvastati 2019-0 Yes 40mg QD Take [address] [facility] n (LIPITOR) - tablet (40 Regi kes - 40 MG 00:00: mg total) Medical tablet 00 by mouth Center daily. gabapentin 2019-0 Yes 300mg QD Take [address] [facility] (NEURONTIN) -25 capsule [facility] - 300 MG 00:00: (300 mg Medical capsule 00 total) by Center mouth daily. insulin 2019-0 Yes 3U Inject [address] [facility] lispro 9-25 Units [facility] - (HUMALOG) 00:00: subcutaneo Me dical 100 unit/mL 00 usly 3 Center InPn (three) times daily before meals. insulin pen 2019-0 Yes Use 4x a [facility] needles (BD 11-29 day for [facility] - ULTRA-FINE 00:00: long and Med ical ALBA) 4 mm 00 short-acti Juan Alberto ter x 32 G ng insulin. furosemide 2019-0 2020- No 40mg QD Take [address] [facility] (LASIX) 40 11-29 11-15 tablet (40 Regi kes - MG tablet 00:00: 00:00 mg total) Me dical 00 :00 by mouth Center daily. amLODIPine 2019- No 10mg QD Take [address] [facility] (NORVASC) 11-29 tablet (10 Sylvia es - 10 MG 00:00: 00:00 mg total) Medica l tablet 00 :00 by mouth Center daily. carvediloL 2019- No 25mg Q.5D Take [address] [facility] (COREG) 25 11-29 tablet (25 Regi kes - MG tablet 00:00: 00:00 mg total) Me dical 00 :00 by mouth 2 Center (two) times daily. sevelamer 2019- No 3200mg Take [address] [facility] (RENVELA) 11-29 tablets [facility] - 800 mg 00:00: 00:00 (3,200 mg Medic al tablet 00 :00 total) by Center mouth 3 (three) times daily with meals. insulin 2019- No 14U QD Inject [address] [address] glargine 11-29 Units [facility] - (LANTUS 00:00: 23:59 subcutaneo Med ical SOLOSTAR 00 :00 ly Center U-100 nightly INSULIN) for 30 100 unit/mL days. (3 mL) InPn hydrALAZINE 2019- No Essential 50mg Q.[id number] Take [address] [facility] (APRESOLINE 11-16 hypertensio [id number] tablet (5 0 [facility] - ) 50 MG 00:00: 00:00 n 3D mg total) Medi magdaleno tablet 00 :00 by mouth 3 Center (three) times daily. ferrous 2019- No Iron 325mg QD Take [address] [facility] sulfate 325 11-16 deficiency tablet [facility] - (65 FE) MG 00:00: 00:00 anemia, (325 mg Medical tablet 00 :00 unspecified total) by C enter iron mouth deficiency daily. anemia type linezolid 2019- No Gangrene of 600mg Q.5D Take [address] [facility] (ZYVOX) 600 11-16 right foot tablet [facility] - mg tablet 00:00: 00:00 (HCC) (600 mg Med ical 00 :00 total) by Center mouth 2 (two) times daily for 13 days. sulfamethox 2019- No Gangrene of 160mg{t QD Take [address] [address] azole-trime 11-16 right foot rimetho tablet [facility] - thoprim 00:00: 00:00 (HCC) prim} (160 mg of M edical (BACTRIM 00 :00 trimethopr Cente r DS) 800-160 im total) mg per by mouth tablet daily for 13 days. HYDROcodone No PAD 1{tbl} Take [address] -acetaminop 11-16 (peripheral tablet by [facility] - hen (NORCO 00:00: 23:59 artery mouth Med ical 10-325) 00 :00 disease) every 8 Cente r 10-325 mg (HCC) (eight) per tablet hours as needed (severe pain) for up to 10 days. Max Daily Amount: 3 tablets fluconazole No 200mg QD Take [address] (DIFLUCAN) 10-23 tablet [facility] - 200 MG 00:00: 00:00 (200 mg Medical tablet 00 :00 total) by Center mouth daily for 36 days. levoFLOXaci No 500mg Take [address] [facility] n 10-23 tablet [facility] - (LEVAQUIN) 00:00: 00:00 (500 mg Med ical 500 MG 00 :00 total) by Center tablet mouth every other day for 36 days. carvediloL No 25mg Q.5D Take [address] [facility] (COREG) 10-22 tablets [facility] - 12.5 MG 00:00: 00:00 (25 mg Medical tablet 00 :00 total) by Center mouth 2 (two) times daily. hydrALAZINE No 50mg Q.5D Take [address] [facility] (APRESOLINE 10-22 tablets Luke s - ) 25 MG 00:00: 00:00 (50 mg Medical tablet 00 :00 total) by Center mouth 2 (two) times daily. aspirin 81 No 81mg QD Take [address] [facility] MG chewable 06-26-22 tablet (81 L ukes - tablet 00:00: 23:59 mg total) Medic al 00 :00 by mouth Center daily. senna-docus No 2{tbl} QD Take [address] ate 06-26 tablets by [facility] - (SENOKOT S) 00:00: 23:59 mouth Medi magdaleno 8.6-50 mg 00 :00 nightly. Center per tablet amLODIPine 2019- No 10mg QD Take [address] [facility] (NORVASC) 06-26 tablet (10 Sylvia es - 10 MG 00:00: 00:00 mg total) Medica l tablet 00 :00 by mouth Center daily. furosemide 2019- No 40mg QD Take [address] [facility] (LASIX) 40 06-26 tablet (40 Regi kes - MG tablet 00:00: 00:00 mg total) Me dical 00 :00 by mouth Center daily. gabapentin 2019- No 300mg QD Take [address] [facility] (NEURONTIN) 06-26 capsule Luke s - 300 MG 00:00: 00:00 (300 mg Medical capsule 00 :00 total) by Center mouth daily. sevelamer 2019- No 3200mg Take [address] [facility] (RENVELA) 06-26 tablets [facility] - 800 mg 00:00: 00:00 (3,200 mg Medic al tablet 00 :00 total) by Center mouth 3 (three) times daily with meals. spironolact 2019- No 25mg QD Take [address] [facility] one 06-26 tablet (25 [facility] - (ALDACTONE) 00:00: 00:00 mg total) Medical 25 MG 00 :00 by mouth Center tablet daily. carvediloL 2020- No 12.5mg Q.5D Take [address] (COREG) 06-26 tablet [facility] - 12.5 MG 00:00: 00:00 (12.5 mg Medic al tablet 00 :00 total) by Center mouth 2 (two) times daily. hydrALAZINE 2019- 2020- No 25mg Q.5D Take [address] [facility] (APRESOLINE 06-26 tablet (25 L ukes - ) 25 MG 00:00: 00:00 mg total) Medi magdaleno tablet 00 :00 by mouth 2 Center (two) times daily. insulin 2019-2019- No 10U Q.5D Inject 0.[address] [...] days. Max Daily Amount: 4 tablets sodium 2019-2019- No Q.5D Apply [facility] hypochlorit 06-26 [...] 00 :00 7 days. Center amoxicillin 2019- 2020- No 1{tbl} Q24H Take [address] -clavulanat 06-26 tablet by Regi kes - e 00:00: 23:59 mouth Medical (AUGMENTIN) 00 :[address] 500-125 mg 6 days. per tablet mINOCYCLine 2019-2019- No 100mg Take [address] (MINOCIN,DY 06-26 capsule [facility] - NACIN) 100 00:00: 23:59 (100 mg Med ical MG capsule 00 :00 total) by Cent er mouth every 12 (twelve) hours for 6 days. polyethylen 2019-2019- No 34g Q.5D Take [address] [facility] e glycol 06-26 by mouth 2 [facility] - (GLYCOLAX) 00:00: 23:59 (two) Medic al 17 gram 00 :00 times Center packet daily for 3 days. glipiZIDE 2019-0 Yes 10mg Q.5D Take 10 mg [place] (GLUCOTROL) 8-20 by mouth 2 Me thodi 10 MG 13:35: (two) st tablet 32 times a day before meals. spironolact 2019-0 Yes 25mg QD Take 25 mg Song one 8-20 by mouth Methodi (ALDACTONE) 13:35: daily. st 25 MG 32 tablet gabapentin 2018-0 Yes 300mg QD Take 300 [place] (NEURONTIN) 8-20 mg by Methodi 300 mg 13:35: mouth st capsule 32 daily. Vital Signs Vital Name Observation Time Observation Value Comments Source Systolic blood 2020-06-19 16:47:00 115 mm[Hg] [facility] Diastolic blood 2020-06-19 16:47:00 55 mm[Hg] [facility] Heart rate 2020-06-19 16:47:00 62 /min [facility] Body temperature 2020-06-19 16:47:00 36.72 Rima [facility] Respiratory rate 2020-06-19 16:47:00 18 /min [facility] Oxygen saturation in 2020-06-19 16:47:00 96 /min [facility] Arterial blood by Medical Ce nter Pulse oximetry Body weight 2020-06-13 12:30:00 81.2 kg [facility] BMI 2020-06-13 12:30:00 23.62 kg/m2 [facility] Body height 2020-05-29 06:00:00 185.4 cm [facility] Systolic blood 2020-04-11 22:30:00 179 mm[Hg] Neo n [facility] pressure Diastolic blood 2020-04-11 22:30:00 70 mm[Hg] Ravi on Muslim pressure Heart rate 2020-04-11 22:30:00 74 /min [facility] Respiratory rate 2020-04-11 22:30:00 20 /min [place] [facility] Oxygen saturation in 2020-04-11 22:30:00 100 /min Duncan Steve Arterial blood by Pulse oximetry Body temperature 2020-04-11 16:01:39 36.83 Rima [place] [facility] Procedures Procedure Date / Time Performing Clinician Source Performed CBC (HEMOGRAM ONLY) 2020-06-19 05:54:[facility] BASIC METABOLIC PANEL 2020-06-19 05:54:00 Dolores Aquino [facility] () [facility] HEMODIALYSIS INPATIENT 2020-06-18 09:50:15 Thierno Rizo [facility] HEMODIALYSIS INPATIENT 2020-06-16 17:14:08 [facility] PHOSPHORUS 2020-06-16 04:58:00 [facility] SARS-COV2/RT-PCR ([facility] & 2020-06-15 15:55:00 [facility] POCT-GLUCOSE METER 2020-06-13 21:33:00 [facility] POCT-GLUCOSE METER 2020-06-13 16:08:00 [facility] POCT-GLUCOSE METER 2020-06-13 13:54:00 [facility]PATIENT 2020-06-13 12:38:15 [facility] CBC W/PLT COUNT & AUTO 2020-06-13 08:27:00 [facility] DIFFERENTIAL [facility] BASIC METABOLIC PANEL 2020-06-13 08:27:00 [facility] () [facility] POCT-GLUCOSE METER 2020-06-13 07:44:00 [facility] POCT-GLUCOSE METER 2020-06-12 20:51:00 [facility] POCT-GLUCOSE METER 2020-06-12 17:02:00 [facility] POCT-GLUCOSE METER 2020-06-12 11:18:00 [facility] POCT-GLUCOSE METER 2020-06-12 08:59:00 [facility] POCT-GLUCOSE METER 2020-06-11 21:43:00 [facility] HEMODIALYSIS INPATIENT 2020-06-11 18:45:37 [facility] 2020-06-11 11:40:00 [facility] POCT-GLUCOSE METER 2020-06-11 08:03:00 [facility] CBC W/PLT COUNT & AUTO 2020-06-11 03:35:00 Felicia [facility] PHOSPHORUS 2020-06-11 03:35:00 Airyair [facility] POCT-GLUCOSE METER 2020-06-10 20:32:00 Adam [facility] PHOSPHORUS 2020-06-10 17:24:00 Felicia [facility] POCT-GLUCOSE METER 2020-06-10 15:31:00 [facility] POCT-GLUCOSE METER 2020-06-10 12:29:00 [facility] POCT-GLUCOSE METER 2020-06-10 08:09:00 [facility] 2020-06-09 21:54:00 [facility] HEMODIALYSIS INPATIENT 2020-06-09 19:37:00 Nithin Andrews [facility] POCT-GLUCOSE METER 2020-06-09 12:19:00 [facility] POCT-GLUCOSE METER 2020-06-09 07:43:00 Adam, [facility] POCT-GLUCOSE METER 2020-06-08 21:49:00 Adam, [facility] POCT-GLUCOSE METER 2020-06-08 15:43:00 Adam, [facility] POCT-GLUCOSE METER 2020-06-08 11:25:00 Adam, [facility] POCT-GLUCOSE METER 2020-06-08 07:16:00 Adam, [facility] POCT-GLUCOSE METER 2020-06-07 22:47:00 Adam, [facility] POCT-GLUCOSE METER 2020-06-07 16:03:00 Adam, [facility] POCT-GLUCOSE METER 2020-06-07 11:40:00 Adam, [facility] POCT-GLUCOSE METER 2020-06-07 07:45:00 Adam, [facility] CBC W/PLT COUNT & AUTO 2020-06-07 04:33:00 Adam, [facility] BASIC METABOLIC PANEL 2020-06-07 04:33:00 Adam [facility] () [facility] POCT-GLUCOSE METER 2020-06-06 22:20:00 Adam, [facility] POCT-GLUCOSE METER 2020-06-06 15:47:00 [facility] HEMODIALYSIS INPATIENT 2020-06-06 11:40:00 Chadwick Lin [facility] HEMODIALYSIS INPATIENT 2020-06-06 09:42:53 Hernando Narvaez [facility] POCT-GLUCOSE METER 2020-06-05 21:28:00 [facility] POCT-GLUCOSE METER 2020-06-05 16:32:00 [facility] POCT-GLUCOSE METER 2020-06-05 11:33:00 [facility] POCT-GLUCOSE METER 2020-06-05 07:49:00 [facility] PO[facility]ER 2020-06-04 20:47:00 [facility] POCT-GLUCOSE METER 2020-06-04 16:21:00 [facility] 2020-06-04 10:58:17 Hernando Narvaez [facility] POCT-GLUCOSE METER 2020-06-03 21:25:00 Sanjana Ramos [facility] POCT-GLUCOSE METER 2020-06-03 17:27:00 Sanjana Ramos [facility] POCT-GLUCOSE METER 2020-06-03 11:24:00 Sanjana Ramos [facility] POCT-GLUCOSE METER 2020-06-03 08:48:00 Sanjana Ramos [facility] POCT-GLUCOSE METER 2020-06-02 21:45:00 Sanjana Ramos [facility] POCT-GLUCOSE METER 2020-06-02 17:26:00 Sanjana Ramos [facility] POCT-GLUCOSE METER 2020-06-02 12:43:00 Sanjana Ramos [facility] HEMODIALYSIS INPATIENT 2020-06-02 11:55:09 Chadwick Lin [facility] POCT-GLUCOSE METER 2020-06-02 08:37:00 Sanjana Ramos [facility] CBC (HEMOGRAM ONLY) 2020-06-02 06:00:00 Sanjana Ramos [facility] BASIC METABOLIC PANEL 2020-06-02 05:59:00 Sanjana Ramos [facility] ([address] [place] [address] PHOSPHORUS 2020-06-02 05:59:00 Sanjana Ramos [facility] IRON, TIBC, % SAT. 2020-06-02 05:59:00 Sanjana Ramos [facility] (WITHOUT FERRITIN) [facility] Cent[facility] r VITAMIN B12 AND FOLATE 2020-06-02 05:59:00 Sanjana Ramos [facility] POCT-GLUCOSE METER 2020-06-01 21:16:00 Sanjana Ramos [facility] POCT-GLUCOSE METER 2020-06-01 16:46:00 Sanjana Ramos [facility] SARS-COV2/RT-PCR ([facility] & 2020-06-01 15:09:00 Joyce Wray [facility] - REF LABS) [facility] FERRITIN 2020-06-01 15:09:00 Sanjana Ramos [facility] POCT-GLUCOSE METER 2020-06-01 11:32:00 Sanjana Ramos [facility] POCT-GLUCOSE METER 2020-06-01 08:43:00 Sanjana Ramos [facility] POCT-GLUCOSE METER 2020-05-31 22:29:00 Sanjana Ramos [facility] POCT-GLUCOSE METER 2020-05-31 16:33:00 Sanjana Ramos [facility] POCT-GLUCOSE METER 2020-05-31 11:17:00 Sanjana Ramos [facility] POCT-GLUCOSE METER 2020-05-31 08:36:00 Sanjana Ramos [facility] CBC (HEMOGRAM ONLY) 2020-05-31 04:57:00 Sanjana Ramos [facility] BASIC METABOLIC PANEL 2020-05-31 04:57:00 Sanjana Ramos [facility] () [facility] POCT-GLUCOSE METER 2020-05-30 20:59:00 Sanjana Ramos [facility] POCT-GLUCOSE METER 2020-05-30 15:53:00 Sanjana Ramos [facility] POCT-GLUCOSE METER 2020-05-30 12:28:00 Rachel [facility] GilbertFannie [facility] HEMODIALYSIS INPATIENT 2020-05-30 09:08:26 Golden Villaltaino [facility] POCT-GLUCOSE METER 2020-05-30 07:55:00 Star Cloud [facility] POCT-GLUCOSE METER 2020-05-29 20:51:00 Star Cloud [facility] HEPATITIS B SURFACE 2020-05-29 18:04:00 Chadwick Lin [facility] POCT-GLUCOSE METER 2020-05-29 16:49:00 Star [facility] SURGICALLY OBTAINED 2020-05-29 09:22:56 Star Cloud [facility] - CULTURE + GRAM STAIN Medical [facility] ter ANAEROBIC CULTURE 2020-05-29 09:22:56 Stra Cloud [facility] AFB CULTURE + SMEAR 2020-05-29 09:22:56 Star Cloud [facility] (NON-SPUTUM) [facility] FUNGUS CULTURE + SMEAR 2020-05-29 09:22:56 Star Cloud [facility] SPIN/CONCENTRATION 2020-05-29 09:22:00 Star Cloud [facility] OSTECTOMY,FOOT/ TOE 2020-05-29 08:09:00 Star Cloud [facility] PLACEMENT,WOUND VAC 2020-05-29 08:09:00 Star Cloud [facility] SKIN GRAFT,SPLIT 2020-05-29 08:09:00 Star Cloud [facility] EXTREMITY POTASSIUM-STAT LAB 2020-05-29 07:07:00 Star Cloud [facility] GLUCOSE-STAT LAB 2020-05-29 07:07:00 Star Cloud [facility] HGB/HCT (H&H) - STAT LAB 2020-05-29 07:07:00 Star Cloud CH, I [facility] POCT-GLUCOSE METER 2020-05-29 05:49:00 Star Cloud [facility] PT/APTT 2020-05-27 13:29:00 [facility] TYPE AND SCREEN, 2020-05-27 13:10:00 Justice [facility] SARS-COV2/RT-PCR ([facility] & 2020-05-27 13:10:00 Star Cloud [facility] - REF LABS) [facility] HEMOGLOBIN 2020-05-27 13:10:00 Justice [facility] ELECTROLYTE PANEL 2020-05-27 13:10:00 Justice [facility] BUN AND CREATININE 2020-05-27 13:10:00 Justice [facility] - W/RATIO [facility] GLUCOSE 2020-05-27 13:10:00 Justice [facility] [id number] 2020-04-12 00:00:00 ENCPL [id number] 2020-04-12 00:00:00 ENCPL [id number] 2020-04-12 00:00:00 ENCPL [id number] 2020-04-12 00:00:00 ENCPL [id number] 2020-04-12 00:00:00 ENCPL HC COMPLETE BLD COUNT 2020-04-11 17:10:00 Tatianna Hagan Muslim W/AUTO DIFF [facility] PROTHROMBIN TIME WITH 2020-04-11 17:10:00 Tatianna Hagan Muslim INR [facility] PARTIAL THROMBOPLASTIN 2020-04-11 17:10:00 Tatianna Hagan on Muslim TIME (PTT) [facility] COMPREHENSIVE METABOLIC 2020-04-11 17:10:00 Tatianna Hagan Muslim PANEL [facility] TYPE AND SCREEN 2020-04-11 17:10:00 Tatianna Hagan ESTIMATED GFR 2020-04-11 17:10:00 Tatianna Hagan PREPARE LEUKO-REDUCED 2020-03-28 23:54:[address] [facility] [id number] 2020-03-28 00:00:00 ENCPL [id number] 2020-03-28 00:00:00 ENCPL 5L1P31D 2020-03-28 00:00:00 ENCPL 5H1L67W 2020-03-28 00:00:00 ENCPL 2E4Z54B 2020-03-28 00:00:00 ENCPL 3W8B21T 2020-03-28 00:00:00 ENCPL 8E6D25U 2020-03-28 00:00:00 ENCPL 0F9U28A 2020-03-28 00:00:00 ENCPL 0Z4V87E 2020-03-28 00:00:00 ENCPL 9Z5L65X 2020-03-28 00:00:00 ENCPL 9T0Q66D 2020-03-28 00:00:00 ENCPL 0N1Q17T 2020-03-28 00:00:00 ENCPL 7U0C66I 2020-03-28 00:00:00 ENCPL 1F3S78V 2020-03-28 00:00:00 ENCPL 3T2X36D 2020-03-28 00:00:00 ENCPL 5O0P75L 2020-03-28 00:00:00 ENCPL 8I3L14M 2020-03-28 00:00:00 ENCPL 6J9Z80P 2020-03-28 00:00:00 ENCPL 8W9M44A 2020-03-28 00:00:00 ENCPL 2Z7H02J 2020-03-28 00:00:00 ENCPL 1B5Y23R 2020-03-28 00:00:00 ENCPL 1I9T90J 2020-03-28 00:00:00 ENCPL 7N5O13R 2020-03-28 00:00:00 ENCPL POCT-GLUCOSE METER 2020-03-27 07:45:00 Karime Hewitt [facility] HEMOGLOBIN AND 2020-03-27 06:32:00 Ld Almanza [facility] HEMATOCRIT [facility] TRANSFUSE LEUKO-REDUCED 2020-03-27 05:28:44 Ld Almanza [facility] RED BLOOD CELLS [facility] SARS-COV2/RT-PCR ([facility] & 2020-03-27 03:50:00 Star Cloud CH I [facility] - REF LABS) [facility] TRANSFUSE LEUKO-REDUCED 2020-03-27 01:59:45 Ld Almanza [facility] RED BLOOD CELLS [facility] POCT-GLUCOSE METER 2020-03-26 20:56:00 Stacey Hewittkha Adelso [facility] TYPE AND SCREEN, 2020-03-26 20:23:00 Karime Hewitt [facility] POCT-GLUCOSE METER 2020-03-26 17:58:[address] [facility] CBC W/PLT COUNT & AUTO 2020-03-26 15:47:00 Golden Villalta [facility] BASIC METABOLIC PANEL 2020-03-26 15:47:[address] [facility] (7) [facility] PHOSPHORUS 2020-03-26 15:47:00 Golden Villalta [facility] POCT-GLUCOSE METER 2020-03-26 11:16:00 Karime Hewitt [facility] POCT-GLUCOSE METER 2020-03-26 09:09:00 [facility] POCT-[facility]UCOSE METER 2020-03-26 08:31:00 Deejay [facility] POCT-GLUCOSE METER 2020-03-25 22:32:00 Deejay [facility] POCT-GLUCOSE METER 2020-03-25 21:38:00 Deejay [facility] POCT-GLUCOSE METER 2020-03-25 17:24:00 Deejay, [facility] POCT-GLUCOSE METER 2020-03-25 11:18:00 Deejay, [facility] POCT-GLUCOSE METER 2020-03-25 07:08:00 Deejay, [facility] POCT-GLUCOSE METER 2020-03-24 21:12:00 Deejay, [facility] POCT-GLUCOSE METER 2020-03-24 17:56:00 Deejay, [facility] CBC W/PLT COUNT & AUTO 2020-03-24 15:05:00 Golden Villalta [facility] HEMODIALYSIS INPATIENT 2020-03-24 12:24:25 Catie Duarte [facility] POCT-GLUCOSE METER 2020-03-24 11:40:00 Deejay, [facility] POCT-GLUCOSE METER 2020-03-24 07:28:00 Deejay, [facility] BASIC METABOLIC PANEL 2020-03-24 06:09:00 Deejay, [address] POCT-GLUCOSE METER 2020-03-23 21:24:00 Deejay, [facility] POCT-GLUCOSE METER 2020-03-23 16:55:00 Deejay, [facility] POCT-GLUCOSE METER 2020-03-23 12:42:00 Deejay, [facility] POCT-GLUCOSE METER 2020-03-23 07:52:00 Deejay, [facility] BASIC METABOLIC PANEL 2020-03-23 06:20:00 Deejay, [address] POCT-GLUCOSE METER 2020-03-22 21:26:00 Deejay, [facility] POCT-GLUCOSE METER 2020-03-22 16:16:00 Deejay, [facility] POCT-GLUCOSE METER 2020-03-22 11:29:00 Deejay, [facility] POCT-GLUCOSE METER 2020-03-22 07:52:00 Deejay, [facility] CBC W/PLT COUNT & AUTO 2020-03-22 06:18:00 Felicia [facility] BASIC METABOLIC PANEL 2020-03-22 06:18:00 Deejay, [address] POCT-GLUCOSE METER 2020-03-21 21:01:00 Deejay, [facility] POCT-GLUCOSE METER 2020-03-21 17:25:00 Deejay, [facility] POCT-GLUCOSE METER 2020-03-21 13:00:00 Deejay, [facility] POCT-GLUCOSE METER 2020-03-21 07:20:00 Deejay, [facility] HEMODIALYSIS INPATIENT 2020-03-21 06:56:08 Felicia [facility] PHOSPHORUS 2020-03-21 06:00:00 Felicia [facility] BASIC METABOLIC PANEL 2020-03-21 06:00:[address] POCT-GLUCOSE METER 2020-03-20 21:26:00 Deejay, [facility] POCT-GLUCOSE METER 2020-03-20 17:27:00 Deejay, [facility] POCT-GLUCOSE METER 2020-03-20 16:00:00 Deejay, [facility] POCT-GLUCOSE METER 2020-03-20 14:16:00 Deejay, [facility] SKIN GRAFT,SKIN 2020-03-20 11:01:00 Star Cloud [facility] SKIN GRAFT,SPLIT 2020-03-20 11:01:00 Clark Danielle [facility] EXTREMITY POCT-GLUCOSE METER 2020-03-20 07:13:00 Deejay, [facility] POCT-GLUCOSE METER 2020-03-20 06:36:00 Deejay, [facility] POCT-GLUCOSE METER 2020-03-19 21:42:00 Deejay, [facility] POCT-GLUCOSE METER 2020-03-19 17:13:00 Deejay, [facility] SARS-COV2/RT-PCR ([facility] & 2020-03-19 16:41:00 Star Cloud [facility] POCT-GLUCOSE METER 2020-03-19 11:53:00 Deejay, [facility] HEMODIALYSIS INPATIENT 2020-03-19 11:00:00 [facility] BASIC MET[facility]OLIC PANEL 2020-03-19 08:00:00 Deejay, [facility] () [facility] POCT-GLUCOSE METER 2020-03-18 21:18:00 Dejeay, [facility] POCT-GLUCOSE METER 2020-03-18 17:22:00 Deejay, [facility] POCT-GLUCOSE METER 2020-03-18 11:17:00 Deejay, [facility] POCT-GLUCOSE METER 2020-03-18 07:19:00 Deejay, [facility] CBC W/PLT COUNT & AUTO 2020-03-18 05:25:00 Deejay, Diamond Abraham [facility] BASIC METABOLIC PANEL 2020-03-18 05:25:00 Deejay, Diamond Gonzalez [address] POCT-GLUCOSE METER 2020-03-17 21:03:00 Deejay, [facility] POCT-GLUCOSE METER 2020-03-17 17:14:00 Deejay, [facility] HEMODIALYSIS INPATIENT 2020-03-17 08:21:10 Kenrick Graves [facility] POCT-GLUCOSE METER 2020-03-17 07:18:00 Deejay, [facility] POCT-GLUCOSE METER 2020-03-17 05:56:00 Deejay, [facility] CBC W/PLT COUNT & AUTO 2020-03-17 05:06:00 Deejay, Diamond Abraham [facility] BASIC METABOLIC PANEL 2020-03-17 05:06:00 Deejay, Diamond Gonzalez [address] PREPARE LEUKO-REDUCED 2020-03-16 23:54:00 Deejay, Diamond Gonzalez [facility] POCT-GLUCOSE METER 2020-03-16 21:23:00 Deejay, [facility] POCT-GLUCOSE METER 2020-03-16 17:25:00 Deejay, [facility] POCT-GLUCOSE METER 2020-03-16 12:33:00 Deejay, [facility] POCT-GLUCOSE METER 2020-03-16 08:00:00 [facility]ay, [facility] POCT-GLUCOSE METER 2020-03-16 07:07:00 Deejay, [facility] CBC W/PLT COUNT & AUTO 2020-03-16 05:56:00 Deejay, Diamond Abraham [facility] BASIC METABOLIC PANEL 2020-03-16 05:56:00 Deejay, Diamond Gonzalez [place] [id number]) [facility] MAGNESIUM 2020-03-16 05:56:00 Deejay, [facility] POCT-GLUCOSE METER 2020-03-15 20:20:00 Deejay, [facility] POCT-GLUCOSE METER 2020-03-15 17:08:00 Deejay, [facility] TRANSFUSE LEUKO-REDUCED 2020-03-15 14:07:54 Deejay, [facility] RED BLOOD CELLS [facility] POCT-GLUCOSE METER 2020-03-15 11:05:00 Deejay, [facility] POCT-GLUCOSE METER 2020-03-15 07:09:00 Deejay, [facility] CBC W/PLT COUNT & AUTO 2020-03-15 06:17:00 Deejay, Diamond Abraham [facility] BASIC METABOLIC PANEL 2020-03-15 06:17:00 Deejay, Diamond Gonzalez [facility] () [facility] MAGNESIUM 2020-03-15 06:17:00 Deejay, [facility] POCT-GLUCOSE METER 2020-03-14 21:21:00 Deejay, [facility] HEMODIALYSIS INPATIENT 2020-03-14 18:46:00 Pritesh Tolentino [facility] HEPATITIS B SURFACE 2020-03-14 15:58:[address] [facility] POCT-GLUCOSE METER 2020-03-14 11:48:00 Deejay, [facility] POCT-GLUCOSE METER 2020-03-14 07:34:00 Deejay, [facility] BASIC METABOLIC PANEL 2020-03-14 06:33:00 Deejay, Diamond Gonzalez [facility] (7) [facility] MAGNESIUM 2020-03-14 06:33:00 Deejay, [facility] POCT-GLUCOSE METER 2020-03-13 22:00:00 Deejay, [facility] POCT-GLUCOSE METER 2020-03-13 17:22:00 Deejay, [facility] POCT-GLUCOSE METER 2020-03-13 13:55:00 Deejay, [facility] AF[employer] CULTURE + SMEAR 2020-03-13 12:36:14 Star Cloud [facility] (NON-SPUTUM) [facility] ANAEROBIC CULTURE 2020-03-13 12:36:14 Star Cloud [facility] FUNGUS CULTURE + SMEAR 2020-03-13 12:36:14 Star Cloud [facility] SURGICALLY OBTAINED 2020-03-13 12:36:14 Star Cloud [facility] - CULTURE + GRAM STAIN Medical [address] ter SPIN/CONCENTRATION 2020-03-13 12:36:00 Star Cloud [facility] TISSUE EXAM 2020-03-13 12:32:00 Star Cloud [facility] ANAEROBIC CULTURE 2020-03-13 12:27:13 Star Cloud [facility] SURGICALLY OBTAINED 2020-03-13 12:27:13 Star Cloud [facility] - CULTURE + GRAM STAIN Medical [address] ter FUNGUS CULTURE + SMEAR 2020-03-13 12:27:13 Star Cloud [facility] AFB CULTURE + SMEAR 2020-03-13 12:27:13 Star Cloud [facility] (NON-SPUTUM) [facility] SPIN/CONCENTRATION 2020-03-13 12:27:00 Star Cloud [facility] DEBRIDEMENT/I&D,WOUND 2020-03-13 10:52:00 Star Cloud [facility] POTASSIUM-STAT LAB 2020-03-13 09:41:00 Lam Worrell [facility] HGB/HCT (H&H) - STAT LAB 2020-03-13 09:41:00 Lam Worrell nd [facility] POCT-GLUCOSE METER 2020-03-13 07:40:00 Deejay, [facility] POCT-GLUCOSE METER 2020-03-12 21:49:00 Deejay, [facility] POCT-GLUCOSE METER 2020-03-12 18:07:00 Deejay, [facility] POCT-GLUCOSE METER 2020-03-12 12:09:00 Deejay, [facility] POCT-GLUCOSE METER 2020-03-12 08:32:00 Deejay, [facility] TYPE AND SCREEN, 2020-03-12 04:06:00 Kaylyn Perez [facility] BASIC METABOLIC PANEL 2020-03-12 04:06:00 Kaylyn Perez [address] HEPATIC FUNCTION PANEL 2020-03-12 04:06:00 Kaylyn Perez ma [facility] HEMOGLOBIN A1C 2020-03-12 04:06:00 Kaylyn Perez [facility] PROTHROMBIN TIME/INR 2020-03-12 04:06:00 Kaylyn Perez [facility] C-REACTIVE PROTEIN 2020-03-12 04:06:00 Kaylyn Perez [facility] WOUND CULTURE + GRAM 2020-03-12 01:28:00 Kaylyn Perez [facility] CBC W/PLT COUNT & AUTO 2020-03-11 23:04:00 Kaylyn Perez ma [facility] COMPREHENSIVE METABOLIC 2020-03-11 23:04:00 Kaylyn Perez [facility] PROTHROMBIN TIME/INR 2020-03-11 23:04:00 Kaylyn Perez [facility] SARS-COV2/RT-PCR ([facility] & 2020-03-11 22:23:00 Star Cloud I [facility] REF LABS) [facility] BLOOD CULTURE 2020-03-11 22:09:00 Kaylyn Perez [facility] POCT-GLUCOSE METER 2020-03-11 21:46:00 Sara Muniz [facility] POCT-GLUCOSE METER 2020-01-22 12:04:00 Jackelyn [facility] POCT-GLUCOSE METER 2020-01-22 07:13:00 Jennifer [facility] BASIC METABOLIC PANEL 2020-01-22 05:28:00 Sanjana Ramos [address] POCT-GLUCOSE METER 2020-01-21 20:24:00 Jennifer [facility] SARS-COV2/RT-PCR ([facility] & 2020-01-21 17:04:00 Sarah Rodriguez [facility] REF LABS) [facility] HEPATITIS B SURFACE 2020-01-21 17:04:[address] [facility] POCT-GLUCOSE METER 2020-01-21 16:37:00 Noam Rodriguez [facility] HEMODIALYSIS INPATIENT 2020-01-21 15:36:10 Elder Rand [facility] POCT-GLUCOSE METER 2020-01-21 07:39:00 Jennifer [facility] BASIC METABOLIC PANEL 2020-01-21 04:20:00 Sanjana Ramos [address] POCT-GLUCOSE METER 2020-01-20 19:24:00 Jennifer [facility] POCT-GLUCOSE METER 2020-01-20 16:36[facility]SE METER 2020-01-20 11:41:00 [facility] POCT-GLUCOSE METER 2020-01-20 07:20:00 Jennifer [facility] CBC W/PLT COUNT & AUTO 2020-01-20 03:49:00 Sanjana Raoms [facility] S [facility] BASIC METABOLIC PANEL 2020-01-20 03:49:00 Sanjana Ramos [facility] [place] [id number] POCT-GLUCOSE METER 2020-01-19 20:43:00 [facility] POCT-GLUCOSE METER 2020-01-19 17:20:00 Jennifer [facility] CBC W/PLT COUNT & AUTO 2020-01-19 04:57:00 Sanjana Ramos [facility] BASIC METABOLIC PANEL 2020-01-19 04:57:00 Sanjana Ramos [facility] [place] [id number] HEMODIALYSIS INPATIENT 2020-01-18 23:29:32 Hernando Narvaez [facility] POCT-GLUCOSE METER 2020-01-18 22:47:00 Jennifer [facility] HEPATITIS B CORE 2020-01-18 16:57:00 Hernando Narvaez [facility] ANTIBODY, [facility] HEPATITIS B SURFACE 2020-01-18 16:57:[address] [facility] POCT-GLUCOSE METER 2020-01-18 11:50:00 [facility] POCT-GLUCOSE METER 2020-01-18 07:31:00 [facility] [facility] CBC W/PLT COUNT & AUTO 2020-01-18 04:16:00 Sanjana Ramos [facility] BASIC METABOLIC PANEL 2020-01-18 04:16:00 Sanjana Ramos [address] POCT-GLUCOSE METER 2020-01-17 22:07:00 Jennifer [facility] POCT-GLUCOSE METER 2020-01-17 16:44:00 [facility] PO[facility]ER 2020-01-17 12:11:00 Minaunvivien, [facility] POCT-GLUCOSE METER 2020-01-17 08:59:00 [facility] W/PLT COUNT & AUTO 2020-01-17 05:40:00 Sanjana Ramos [facility] BASIC METABOLIC PANEL 2020-01-17 05:40:00 Sanjana Ramos [address] POCT-GLUCOSE METER 2020-01-16 22:17:00 [facility] POCT-GLUCOSE METER 2020-01-16 16:46:00 [facility] HEMODIALYSIS INPATIENT 2020-01-16 13:59:56 Hernando Narvaez [facility] POCT-GLUCOSE METER 2020-01-16 11:36:00 [facility] POCT-[facility]UCOSE METER 2020-01-16 07:10:00 [facility] CBC W/PLT COUNT & AUTO 2020-01-16 05:30:00 Sanjana Ramos [facility] BASIC METABOLIC PANEL 2020-01-16 05:30:00 Sanjana Ramos [address] POCT-GLUCOSE METER 2020-01-15 21:36:00 Sanjana Ramos [facility] POCT-GLUCOSE METER 2020-01-15 16:49:00 Sanjana Ramos [facility] POCT-GLUCOSE METER 2020-01-15 10:38:00 Rachel BabitaBenjieElsa [facility] POCT-GLUCOSE METER 2020-01-15 07:21:00 Rcahel BabitaBenjieElsa [facility] CBC W/PLT COUNT & AUTO 2020-01-15 05:16:00 Rachel Sanjana JOANN S [facility] BASIC METABOLIC PANEL 2020-01-15 05:16:00 Rachel Sanjana [facility] () [facility] POCT-GLUCOSE METER 2020-01-14 22:43:00 Sanjana Ramos [facility] POCT-GLUCOSE METER 2020-01-14 16:08:00 Sanjana Ramos [facility] POCT-GLUCOSE METER 2020-01-14 11:28:00 Sanjana Ramos [facility] POCT-GLUCOSE METER 2020-01-14 09:08:00 Sanjana Ramos [facility] CBC W/PLT COUNT & AUTO 2020-01-14 04:03:00 Babita RamosBenjieElsa JOANN S [facility] BASIC METABOLIC PANEL 2020-01-14 04:03:00 Sanjana Ramos [facility] () [facility] POCT-GLUCOSE METER 2020-01-13 21:20:00 Sanjana Ramos [facility] POCT-GLUCOSE METER 2020-01-13 15:41:00 Sanjana Ramos [facility] POCT-GLUCOSE METER 2020-01-13 11:17:00 Sanjana Ramos [facility] POCT-GLUCOSE METER 2020-01-13 07:19:00 Sanjana Ramos [facility] SARS-COV2/RT-PCR ([facility] & 2020-01-13 04:05:00 Sanjana Ramos [facility] REF [facility] POCT-GLUCOSE METER 2020-01-12 22:34:00 Sanjana Ramos [facility] POCT-GLUCOSE METER 2020-01-12 16:27:00 Sanjana Ramos [facility] POCT-GLUCOSE METER 2020-01-12 12:03:00 Sanjana Ramos [facility] POCT-GLUCOSE METER 2020-01-12 07:00:00 [facility] W/PLT COUNT & AUTO 2020-01-12 04:30:00 Manuel Pfeiffer on [facility] BASIC METABOLIC PANEL 2020-01-12 04:30:00 Star Cloud [place] [id number]) [facility] POCT-GLUCOSE METER 2020-01-11 21:43:00 Sanjana Ramos [facility] POCT-GLUCOSE METER 2020-01-11 15:20:00 [facility] POCT-[facility]UCOSE METER 2020-01-11 12:49:00 Sanjana Ramos [facility] POCT-GLUCOSE METER 2020-01-11 09:33:00 [facility] CBC W/PLT COUNT & AUTO 2020-01-11 03:52:00 Manuel Pfeiffer on [facility] BASIC METABOLIC PANEL 2020-01-11 03:52:00 Star Cloud [facility] () [facility] PHOSPHORUS 2020-01-11 03:52:00 Viky Karimi [facility] POCT-GLUCOSE METER 2020-01-10 22:24:00 Sanjana Ramos [facility] POCT-GLUCOSE METER 2020-01-10 18:56:00 Rachel [facility] CULTURE + SMEAR 2020-01-10 17:49:37 Star Cloud [facility] (NON-SPUTUM) [facility] ANAEROBIC CULTURE 2020-01-10 17:49:37 Star Cloud [facility] FUNGUS CULTURE + SMEAR 2020-01-10 17:49:37 Star Cloud [facility] SURGICALLY OBTAINED 2020-01-10 17:49:37 Star Cloud [facility] - CULTURE + GRAM STAIN Medical Juan Alberto ter SPIN/CONCENTRATION 2020-01-10 17:49:00 Star Cloud [facility] [employer]B CULTURE + SMEAR 2020-01-10 17:45:16 Star Cloud [facility] (NON-SPUTUM) [facility] ANAEROBIC CULTURE 2020-01-10 17:45:16 Star Cloud [facility] FUNGUS CULTURE + SMEAR 2020-01-10 17:45:16 Star Cloud [facility] SURGICALLY OBTAINED 2020-01-10 17:45:16 Star Cloud [facility] - CULTURE + GRAM STAIN Medical [facility] ter SPIN/CONCENTRATION 2020-01-10 17:45:00 Star Cloud [facility] AMPUTATION,REVISION/RE-A 2020-01-10 15:20:00 Star Cloud I [facility] POCT-GLUCOSE METER 2020-01-10 12:26:00 Sanjana Ramos [facility] POCT-GLUCOSE METER 2020-01-10 10:29:00 Sanjana Ramos [facility] CBC W/PLT COUNT & AUTO 2020-01-10 05:04:00 Manuel Pfeiffer [facility] BASIC METABOLIC PANEL 2020-01-10 05:04:00 Star Cloud [facility] (7) [facility] PHOSPHORUS 2020-01-10 05:04:00 Gm Pfeiffer [facility] TYPE AND SCREEN, 2020-01-09 21:25:[address] [facility] POCT-GLUCOSE METER 2020-01-09 21:25:00 Sanjana Ramos [facility] POCT-GLUCOSE METER 2020-01-09 17:00:00 Sanjana Ramos [facility] POCT-GLUCOSE METER 2020-01-09 11:12:00 Sanjana Ramos [facility] POCT-GLUCOSE METER 2020-01-09 10:09:00 Sanjana Ramos [facility] HEMODIALYSIS INPATIENT 2020-01-09 06:07:22 Thierno Rizo [facility] CBC W/PLT COUNT & AUTO 2020-01-09 03:43:00 Manuel Pfeiffer on [facility] BASIC METABOLIC PANEL 2020-01-09 03:43:00 Star Cloud [facility] (7) [facility] PHOSPHORUS 2020-01-09 03:43:00 Margarette [facility] MAGNESIUM 2020-01-09 03:43:00 [facility] PREPARE LEUKO-REDUCED 2020-01-08 23:54:00 Willis, [facility] POCT-GLUCOSE METER 2020-01-08 22:33:00 Willis, [facility] WOUND CULTURE + GRAM 2020-01-08 18:14:00 Candi Avilez [facility] POCT-GLUCOSE METER 2020-01-08 15:57:00 Willis, [facility] POCT-GLUCOSE METER 2020-01-08 11:07:00 Willis, [facility] POCT-GLUCOSE METER 2020-01-08 08:17:00 Willis, [facility] VANCOMYCIN LEVEL, RANDOM 2020-01-08 04:37:00 Willis, [facility] FERRITIN 2020-01-08 04:37:00 Thierno Rizo [facility] IRON, TIBC, % SAT. 2020-01-08 04:37:[address] [facility] (WITHOUT FERRITIN) [facility] W/[facility]T [facility] & AUTO 2020-01-08 01:40:00 Manuel Pfeiffer [facility] BASIC METABOLIC PANEL 2020-01-08 01:40:00 Star Cloud [facility] () [facility] PHOSPHORUS 2020-01-08 01:40:00 Margarette [facility] MAGNESIUM 2020-01-08 01:40:00 Margarette [facility] PROTHROMBIN TIME/INR 2020-01-08 01:40:00 Mease [facility] APTT 2020-01-08 01:40:00 Nikki, [facility] POCT-GLUCOSE METER 2020-01-07 23:58:00 Willis, [facility] PREPARE LEUKO-REDUCED 2020-01-07 23:54:[address] [facility] TRANSFUSE LEUKO-REDUCED 2020-01-07 21:18:26 Willis, [facility] RED BLOOD CELLS [facility] POCT-GLUCOSE METER 2020-01-07 16:22:00 Willis, [facility] POCT-GLUCOSE METER 2020-01-07 13:00:00 Willis, [facility] CBC W/PLT COUNT & AUTO 2020-01-07 10:09:00 Willis, [facility] POCT-GLUCOSE METER 2020-01-07 07:47:00 Willis, [facility] BASIC METABOLIC PANEL 2020-01-07 04:58:[address] [facility] () [facility] PHOSPHORUS 2020-01-07 04:58:00 Margarette [facility] MAGNESIUM 2020-01-07 04:58:00 Margarette [facility] CBC W/PLT COUNT & AUTO 2020-01-07 04:53:00 Manuel Pfeiffer [facility] VANCOMYCIN LEVEL, RANDOM 2020-01-07 04:53:00 Krishna Pfeiffer [facility] TRANSFUSE LEUKO-REDUCED 2020-01-07 00:23:[address] [facility] - RED BLOOD CELLS [facility] POCT-GLUCOSE METER 2020-01-06 22:51:00 Gm Pfeiffer [facility] LACTIC ACID, VENOUS 2020-01-06 20:04:00 Aileen Hines [facility] TYPE AND SCREEN, 2020-01-06 18:46:00 Aileen Hines [facility] AUTOMATED [facility] SARS-COV2/RT-PCR ([facility] & 2020-01-06 18:46:00 Aileen Hines [facility] - REF LABS) [facility] RAPID INFLUENZA A&B 2020-01-06 18:46:00 Aileen iHnes [facility] SCREEN [facility] ECG 12-LEAD 2020-01-06 17:46:51 Unknown, H[facility]7 Doctor [facility] ECG 12-LEAD 2020-01-06 17:46:15 Unknown, H[facility]7 Doctor [facility] XR CHEST 1 VIEW 2020-01-06 17:31:00 Aileen Hines [facility] PORTABLE/BEDSIDE [facility] XR FOOT RIGHT 3 VIEW 2020-01-06 17:30:00 Aileen Hines [facility] POCT-GLUCOSE METER 2020-01-06 17:09:00 Aileen Hines [facility] CBC W/PLT COUNT & AUTO 2020-01-06 16:33:00 Aileen Hines [facility] (CELLAVISION MANUAL 2020-01-06 16:33:00 Aileen Hines [facility] DIFF) Medical Center BLOOD CULTURE 2020-01-06 16:33:00 Aileen Hines [facility] LACTIC ACID, VENOUS 2020-01-06 16:33:00 Aileen Hines [facility] PROTHROMBIN TIME/INR 2020-01-06 16:33:00 Aileen Hines [facility] APTT 2020-01-06 16:33:00 Aileen Hines [facility] BASIC METABOLIC PANEL 2020-01-06 16:33:00 Aileen Hines se [address] HEPATIC FUNCTION PANEL 2020-01-06 16:33:00 Aileen Hines [facility] BLOOD GAS, VENOUS 2020-01-06 16:33:00 Aileen Hines [facility] REPORT OF PROCEDURE - 2020-01-06 00:00:00 ProviderLisa [facility] ENDOSCOPY SCAN Scanning [facility] HEMODIALYSIS INPATIENT 2019-12-24 18:03:00 Hernando Narvaez [facility] HEMODIALYSIS INPATIENT 2019-12-24 14:43:36 Nithin Andrews [facility] POCT-GLUCOSE METER 2019-12-24 11:33:00 [facility] POCT-GLUCOSE METER 2019-12-24 07:26:00 [facility] CBC W/PLT COUNT & AUTO 2019-12-24 04:14:00 Jad Salazar [facility] BASIC METABOLIC PANEL 2019-12-24 04:14:00 Jad Salazar [address] MAGNESIUM 2019-12-24 04:14:00 Marie [facility] POCT-GLUCOSE METER 2019-12-23 21:19:00 [facility] POCT-GLUCOSE METER 2019-12-23 16:19:00 [facility] POCT-GLUCOSE METER 2019-12-23 11:25:00 [facility]SE METER 2019-12-23 07:35:00 [facility] CBC W/PLT COUNT & AUTO 2019-12-23 05:15:00 Jad Salazar [facility] S [facility] HEPATITIS B SURFACE 2019-12-23 05:15:00 Bin Gaytan [facility] BASIC METABOLIC PANEL 2019-12-23 05:15:00 Salazar, [address] MAGNESIUM 2019-12-23 05:15:00 Salazar, [facility] POCT-GLUCOSE METER 2019-12-22 20:48:00 [facility] POCT-GLUCOSE METER 2019-12-22 17:42:00 [facility] POCT-GLUCOSE METER 2019-12-22 13:52:00 [facility] POCT-GLUCOSE METER 2019-12-22 12:10:00 [facility] POCT-GLUCOSE METER 2019-12-22 07:29:00 [facility] CBC W/PLT COUNT & AUTO 2019-12-22 05:57:00 Marie [facility] BASIC METABOLIC PANEL 2019-12-22 05:57:[address] MAGNESIUM 2019-12-22 05:57:00 Marie [facility] POCT-GLUCOSE METER 2019-12-21 22:23:00 [facility] HEMOD[facility]IS INPATIENT 2019-12-21 16:20:05 Bin Gaytan [facility] POCT-GLUCOSE METER 2019-12-21 15:34:00 [facility] POCT-GLUCOSE METER 2019-12-21 08:38:00 [facility] CBC W/PLT COUNT & AUTO 2019-12-21 05:05:00 [facility] BASIC METABOLIC PANEL 2019-12-21 05:05:[address] MAGNESIUM 2019-12-21 05:05:00 Marie [facility] POCT-GLUCOSE METER 2019-12-20 20:37:00 [facility] POCT-GLUCOSE METER 2019-12-20 16:29:00 [facility] SARS-COV2/RT-PCR ([facility] & 2019-12-20 14:45:00 Karo Debora LaishaLizeth [facility] POCT-GLUCOSE METER 2019-12-20 11:50:00 [facility] POCT-GLUCOSE METER 2019-12-20 07:36:00 [facility] CBC W/PLT COUNT & AUTO 2019-12-20 05:29:00 Salazar [facility] BASIC METABOLIC PANEL 2019-12-20 05:29:[address] 2019-12-20 05:29:[facility] 2019-12-19 20:35:00 [facility] POCT-GLUCOSE METER 2019-12-19 16:25:00 [facility] HEMODIALYSIS INPATIENT 2019-12-19 14:03:09 Hernando Narvaez [facility] POCT-GLUCOSE METER 2019-12-19 07:52:00 [facility] CBC W/PLT COUNT & AUTO 2019-12-19 04:24:00 [facility] BASIC METABOLIC PANEL 2019-12-19 04:24:[address] 2019-12-19 04:24:00 Marie [facility] POCT-GLUCOSE METER 2019-12-18 19:38[facility] 2019-12-18 18:07:00 Marie [facility] CBC W/PLT COUNT & AUTO 2019-12-18 05:33:00 Marie [facility] BASIC METABOLIC PANEL 2019-12-18 05:33:00 Marie, [facility] (7) [facility] MAGNESIUM 2019-12-18 05:33:00 Marie [facility] POCT-GLUCOSE METER 2019-12-17 19:55:00 Marie, [facility] POCT-GLUCOSE METER 2019-12-17 13:48:00 Marie [facility] HEMODIALYSIS INPATIENT 2019-12-17 11:30:00 Catie Duarte [facility] CBC W/PLT COUNT & AUTO 2019-12-17 04:08:00 Marie [facility] BASIC METABOLIC PANEL 2019-12-17 04:08:00 Marie [facility] () [facility] MAGNESIUM 2019-12-17 04:08:00 Marie [facility] POCT-GLUCOSE METER 2019-12-16 20:57:00 Marie [facility] POCT-GLUCOSE METER 2019-12-16 16:41:00 Marie [facility] POCT-GLUCOSE METER 2019-12-16 11:24:00 Marie [facility] POCT-GLUCOSE METER 2019-12-16 07:44:00 Marie [facility] CBC W/PLT COUNT & AUTO 2019-12-16 05:35:00 Marie [facility] BASIC METABOLIC PANEL 2019-12-16 05:35:00 Marie [facility] () [facility] MAGNESIUM 2019-12-16 05:35:00 Marie [facility] POCT-GLUCOSE METER 2019-12-15 20:09:00 Marie [facility] POCT-GLUCOSE METER 2019-12-15 16:29:00 Marie [facility] POCT-GLUCOSE METER 2019-12-15 11:42:00 Marie [facility] POCT-GLUCOSE METER 2019-12-15 07:00:00 Marie [facility] CBC W/PLT COUNT & AUTO 2019-12-15 04:27:00 Marie [facility] BASIC METABOLIC PANEL 2019-12-15 04:27:00 Marie [facility] () [facility] MAGNESIUM 2019-12-15 04:27:00 Marie [facility] POCT-GLUCOSE METER 2019-12-14 20:21:00 Marie [facility] POCT-GLUCOSE METER 2019-12-14 17:35:00 Marie [facility] HEMODIALYSIS INPATIENT 2019-12-14 16:37:00 Viky Karimi [facility] POCT-GLUCOSE METER 2019-12-14 11:32:00 Marie [facility] POCT-GLUCOSE METER 2019-12-14 08:06:00 Marie [facility] CBC W/PLT COUNT & AUTO 2019-12-14 03:51:00 Marie [facility] BASIC METABOLIC PANEL 2019-12-14 03:51:00 Marie [facility] () [facility] MAGNESIUM 2019-12-14 03:51:00 Marie [facility] POCT-GLUCOSE METER 2019-12-13 20:50:00 Marie [facility] POCT-GLUCOSE METER 2019-12-13 16:49:00 Marie [facility] POCT-GLUCOSE METER 2019-12-13 12:12:00 Marie [facility] ARTERIAL DOPPLER LEG, 2019-12-13 09:00:00 Kassie Ramachandran [facility] POCT-GLUCOSE METER 2019-12-13 07:53:00 Marie [facility] CBC W/PLT COUNT & AUTO 2019-12-13 04:42:00 Marie [facility] HEMOGLOBIN A1C 2019-12-13 04:42:00 Marie [facility] BASIC METABOLIC PANEL 2019-12-13 04:42:00 Marie [facility] (7) [facility] MAGNESIUM 2019-12-13 04:42:00 Marie [facility] SARS-COV2/RT-PCR ([facility] & 2019-12-12 22:15:00 Debora Huddleston [facility] - REF LABS) [facility] POCT-GLUCOSE METER 2019-12-12 20:40:00 Marie [facility] TRANSFUSION SERVICE 2019-12-12 18:03:16 ProviderLisa [facility] REPORT - SCAN Scanning [facility] POCT-GLUCOSE METER 2019-12-12 16:02:00 Marie [facility] POCT-GLUCOSE METER 2019-12-12 13:30:00 Marie [facility] HEMODIALYSIS INPATIENT 2019-12-12 12:01:00 Elder Rand [facility] VANCOMYCIN LEVEL, RANDOM 2019-12-12 03:52:00 Rose Westbrook [facility] POCT-GLUCOSE METER 2019-12-11 20:24:00 Willis, [facility] POCT-GLUCOSE METER 2019-12-11 16:31:00 Willis, [facility] POCT-GLUCOSE METER 2019-12-11 13:50:00 Willis, [facility] POCT-GLUCOSE METER 2019-12-11 11:07:00 Willis, [facility] AFB CULTURE + SMEAR 2019-12-11 09:26:43 Star Cloud [facility] (NON-SPUTUM) [facility] ANAEROBIC CULTURE 2019-12-11 09:26:43 Star Cloud [facility] FUNGUS CULTURE + SMEAR 2019-12-11 09:26:43 Star Cloud [facility] SURGICALLY OBTAINED 2019-12-11 09:26:43 Star Cloud [facility] - CULTURE + GRAM STAIN Medical Juan Alberto ter SPIN/CONCENTRATION 2019-12-11 09:26:00 Star Cloud [facility] SKIN GRAFT,SKIN 2019-12-11 08:10:00 Star Cloud [facility] DEBRIDEMENT/I&D,WOUND 2019-12-11 08:10:00 Star Cloud [facility] TYPE AND SCREEN, 2019-12-11 03:52:00 Jina [facility] CBC W/PLT COUNT & AUTO 2019-12-11 03:52:00 Jina [facility] DIFFERENTIAL [facility] BASIC METABOLIC PANEL 2019-12-11 03:52:00 [facility] POCT-GLUCOSE METER 2019-12-10 20:36:00 Willis, [facility] POCT-GLUCOSE METER 2019-12-10 17:14:00 Willis, [facility] POCT-GLUCOSE METER 2019-12-10 16:19:00 Willis, [facility] POCT-GLUCOSE METER 2019-12-10 11:30:00 Willis, [facility] POCT-GLUCOSE METER 2019-12-10 07:56:00 Willis, [facility] POCT-GLUCOSE METER 2019-12-09 21:22:00 Willis, [facility] POCT-GLUCOSE METER 2019-12-09 16:45:00 Willis, [facility] POCT-GLUCOSE METER 2019-12-09 11:27:00 Willis, [facility] POCT-GLUCOSE METER 2019-12-09 07:19:00 Willis, [facility] POCT-GLUCOSE METER 2019-12-08 21:20:00 Willis, [facility] POCT-GLUCOSE METER 2019-12-08 16:55:00 Willis, [facility] POCT-GLUCOSE METER 2019-12-08 12:28:00 Willis, [facility] POCT-GLUCOSE METER 2019-12-08 07:13:00 Willis, [facility] CBC W/PLT COUNT & AUTO 2019-12-08 03:41:00 Willis, [facility] BASIC METABOLIC PANEL 2019-12-08 03:41:00 Willis, [place] [address]) [facility] POCT-GLUCOSE METER 2019-12-07 21:25:00 Willis, [facility] HEMODIALYSIS INPATIENT 2019-12-07 18:27:52 Nithin Andrews [facility] POCT-GLUCOSE METER 2019-12-07 17:41:00 Willis, [facility] POCT-GLUCOSE METER 2019-12-07 11:45:00 Willis, [facility] POCT-GLUCOSE METER 2019-12-07 08:00:00 Willis, [facility] POCT-GLUCOSE METER 2019-12-06 15:30:00 Willis, [facility] POCT-GLUCOSE METER 2019-12-06 10:31:00 Willis, [facility] POCT-GLUCOSE METER 2019-12-06 07:48:00 Shi Land [facility] CBC W/PLT COUNT & AUTO 2019-12-06 06:28:00 Debora Huddleston [facility] BASIC METABOLIC PANEL 2019-12-06 06:28:00 Debora Huddleston CH I [address] PROTHROMBIN TIME/INR 2019-12-06 06:28:00 Debora Huddleston [facility] MAGNESIUM 2019-12-06 06:28:00 Debora Huddleston [facility] PHOSPHORUS 2019-12-06 06:28:00 Debora Huddleston [facility] SARS-COV2/RT-PCR ([facility] & 2019-12-05 23:54:00 Debora Huddleston [facility] BLOOD CULTURE 2019-12-05 23:49:00 Debora Huddleston [facility] POCT-GLUCOSE METER 2019-12-05 21:04:00 NilsShi jama [facility] CARDIAC CATH REPORT - 2019-12-04 15:25:08 Provider, Default [facility] SCAN [facility] RHYTHM STRIP - SCAN 2019-12-04 15:24:54 Provider, Default [facility] POCT-GLUCOSE METER 2019-11-30 21:10:00 Sanjana Ramos [facility] HEMODIALYSIS INPATIENT 2019-11-30 19:55:04 Bin Gaytan [facility] POCT-GLUCOSE METER 2019-11-30 12:21:00 Sanjana Ramos [facility] POCT-GLUCOSE METER 2019-11-30 07:56:00 Sanjana Ramos [facility] POCT-GLUCOSE METER 2019-11-29 21:42:00 Sanjana Ramos [facility] POCT-GLUCOSE METER 2019-11-29 16:52:00 Sanjana Ramos [facility] POCT-GLUCOSE METER 2019-11-29 12:17:00 Sanjana Ramos [facility] POCT-GLUCOSE METER 2019-11-29 09:31:00 Sanjana Ramos [facility] [facility] POCT-GLUCOSE METER 2019-11-29 07:07:00 Sanjana Ramos [facility] CREATINE KINASE (CK) 2019-11-29 04:23:00 Celi Fontaine [facility] POCT-GLUCOSE METER 2019-11-28 20:51:00 Sanjana Ramos [facility] POCT-GLUCOSE METER 2019-11-28 18:14:00 Sanjana Ramos [facility] POCT-GLUCOSE METER 2019-11-28 11:47:00 Sanjana Ramos [facility] POCT-GLUCOSE METER 2019-11-28 07:47:00 Sanjaan Ramos [facility] CBC W/PLT COUNT & AUTO 2019-11-28 03:48:00 Willis, [facility] BASIC METABOLIC PANEL 2019-11-28 03:48:00 Willis, [address] POCT-GLUCOSE METER 2019-11-27 20:55:00 Willis, [facility] POCT-GLUCOSE METER 2019-11-27 17:35:00 Willis, [facility] POCT-GLUCOSE METER 2019-11-27 11:22:00 Willis, [facility] POCT-GLUCOSE METER 2019-11-27 08:51:00 Willis, [facility] CBC W/PLT COUNT & AUTO 2019-11-27 04:40:00 Willis, [facility] BASIC METABOLIC PANEL 2019-11-27 04:40:00 Willis, [address] POCT-GLUCOSE METER 2019-11-26 21:08:00 Willis, [facility] POCT-GLUCOSE METER 2019-11-26 17:22:00 Willis, [facility] HEMODIALYSIS INPATIENT 2019-11-26 12:35:06 Nithin Andrews [facility] POCT-GLUCOSE METER 2019-11-26 11:11:00 Willis, [facility] POCT-GLUCOSE METER 2019-11-26 07:55:00 Willis, [facility] CBC W/PLT COUNT & AUTO 2019-11-26 04:40:00 Willis, [facility] BASIC METABOLIC PANEL 2019-11-26 04:40:00 Willis, [place] [address]) [facility] POCT-GLUCOSE METER 2019-11-25 21:33:00 Willis, [facility] POCT-GLUCOSE METER 2019-11-25 17:04:00 Willis, [facility] POCT-GLUCOSE METER 2019-11-25 11:48:00 Willis, [facility] POCT-GLUCOSE METER 2019-11-25 07:52:00 Willis, [facility] POCT-GLUCOSE METER 2019-11-24 21:20:00 Willis, [facility] POCT-GLUCOSE METER 2019-11-24 16:51:00 Willis, [facility] POCT-GLUCOSE METER 2019-11-24 12:16:00 Willis, [facility] POCT-GLUCOSE METER 2019-11-24 07:54:00 Willis, [facility] POCT-GLUCOSE METER 2019-11-23 20:56:00 Willis, [facility] POCT-GLUCOSE METER 2019-11-23 16:52:00 Willis, [facility] POCT-GLUCOSE METER 2019-11-23 12:18:00 Willis, [facility] HEMODIALYSIS INPATIENT 2019-11-23 10:46:12 Julio Hurst [facility] POCT-GLUCOSE METER 2019-11-23 07:53:00 Willis, [facility] POCT-GLUCOSE METER 2019-11-22 21:32:00 Willis, [facility] SARS-COV2/RT-PCR ([facility] & 2019-11-22 19:20:00 Krishna Pfeiffer [facility] POCT-GLUCOSE METER 2019-11-22 17:39:00 Willis, [facility] POCT-GLUCOSE METER 2019-11-22 11:45:00 Willis, [facility] POCT-GLUCOSE METER 2019-11-22 07:29:00 Willis, [facility] CREATINE KINASE (CK) 2019-11-22 04:01:00 Celi Fontainen [facility] POCT-GLUCOSE METER 2019-11-21 21:37:00 Willis, [facility] HEMODIALYSIS INPATIENT 2019-11-21 15:18:00 Julio Hurst [facility] HEPATITIS B SURFACE 2019-11-21 14:46:00 Julio Hurst [facility] POCT-GLUCOSE METER 2019-11-21 11:40:00 Willis, [facility] POCT-GLUCOSE METER 2019-11-21 07:43:00 Willis, [facility] POCT-GLUCOSE METER 2019-11-20 21:24:00 [facility] 2019-11-20 17:03:00 [facility] 2019-11-20 12:05:00 [facility]aine[facility] POCT-GLUCOSE METER 2019-11-19 23:18:00 [facility]aine[facility] POCT-GLUCOSE METER 2019-11-19 20:23:00 Fontaine, Celi Garg [facility] HEMODIALYSIS INPATIENT 2019-11-19 19:45:01 [facility] POCT-GLUCOSE METER 2019-11-19 12:14:00 [facility]aine, [facility] POCT-GLUCOSE METER 2019-11-19 07:57:00 [facility]aine[facility] BASIC METABOLIC PANEL 2019-11-19 04:06:00 Fontaine, Celi Britany[address] CBC (HEMOGRAM ONLY) 2019-11-19 04:06:00 Fontaine, [facility] POCT-GLUCOSE METER 2019-11-18 21:10:00 Fontaine, [facility] POCT-GLUCOSE METER 2019-11-18 17:18:00 Fontaine, [facility] POCT-GLUCOSE METER 2019-11-18 12:55:00 Fontaine, [facility] POCT-GLUCOSE METER 2019-11-18 07:43:00 Fontaine, [facility] BASIC METABOLIC PANEL 2019-11-18 05:57:00 Fontaine, [address] CBC (HEMOGRAM ONLY) 2019-11-18 05:57:00 Fontaine, [facility] HEMODIALYSIS INPATIENT 2019-11-17 22:51:08 DeliaChadwick [facility] POCT-GLUCOSE METER 2019-11-17 21:54:00 Fontaine, [facility] POCT-GLUCOSE METER 2019-11-17 17:41:00 Fontaine, [facility] POCT-GLUCOSE METER 2019-11-17 07:52:00 Fontaine, [facility] BASIC METABOLIC PANEL 2019-11-17 06:34:00 Fontaine, [place] [address]) [facility] CBC (HEMOGRAM ONLY) 2019-11-17 06:34:00 Fontaine, [facility] POCT-GLUCOSE METER 2019-11-16 21:40:00 Fontaine, [facility] POCT-GLUCOSE METER 2019-11-16 17:35:00 Fontaine, [facility] POCT-GLUCOSE METER 2019-11-16 11:26:00 Fontaine, [facility] POCT-GLUCOSE METER 2019-11-16 07:36:00 Fontaine, [facility] BASIC METABOLIC PANEL 2019-11-16 04:30:00 Fontaine, [address] CBC (HEMOGRAM ONLY) 2019-11-16 04:30:00 Fontaine, [facility] POCT-GLUCOSE METER 2019-11-15 20:54:00 Fontaine, Celi Garg [facility] POCT-GLUCOSE METER 2019-11-15 16:58:00 Fontaine, Celi Garg [facility] POCT-ACT 2019-11-15 15:57:00 Fontaine, Celi Garg [facility] POCT-GLUCOSE METER 2019-11-15 14:56:00 Fontaine, Celi Garg [facility] PERIPHERAL ANGIOS / 2019-11-15 14:41:00 Danielle Clark Chahal [facility] AORTOGRAM [facility] POCT-GLUCOSE METER 2019-11-15 14:23:00 Fontaine, Celi Garg [facility] HEMODIALYSIS INPATIENT 2019-11-15 10:15:06 Chadwick Lin [facility] POCT-GLUCOSE METER 2019-11-15 07:56:00 Fontaine, Celi Garg [facility] CBC WITH PLATELET COUNT 2019-11-15 04:29:00 Den, Celi Mccain [facility] - + MANUAL DIFF [facility] (CELLAVISION MANUAL 2019-11-15 04:29:00 Den, Celi Mccain [facility] - DIFF) [facility] CBC W/PLT+MANUAL DIFF 2019-11-15 04:29:00 Den, Celi Mccain [facility] PROTHROMBIN TIME/INR 2019-11-15 04:29:00 Den, Celi Mccain [facility] APTT 2019-11-15 04:29:00 Den, Celi Mccain [facility] CREATINE KINASE (CK) 2019-11-15 04:29:00 Rose Westbrook [facility] BASIC METABOLIC PANEL 2019-11-15 04:29:00 Fontaine, Celi Grag [facility] (7) [facility] POCT-GLUCOSE METER 2019-11-14 21:18:00 [facility]aine, [facility] POCT-GLUCOSE METER 2019-11-14 17:10:00 Fontaine, Celi Garg [facility] POCT-GLUCOSE METER 2019-11-14 12:48:00 FontaineCelin [facility] POCT-GLUCOSE METER 2019-11-14 08:38:00 Fontaine, Celi Britany [facility] CBC W/PLT COUNT & AUTO 2019-11-14 04:52:00 Kristian Scales CH, I [facility] BASIC METABOLIC PANEL 2019-11-14 04:52:00 Davey Pfeiffer [facility] () [facility] CALCIUM, IONIZED 2019-11-14 04:52:00 Kristian Scales [facility] MAGNESIUM 2019-11-14 04:52:00 Kristian Scales [facility] POCT-GLUCOSE METER 2019-11-13 21:08:00 [facility] 2019-11-13 17:25:00 Kristian Scales [facility] HEMODIALYSIS INPATIENT 2019-11-13 12:25:00 Thierno Rizo [facility] HEMODIALYSIS INPATIENT 2019-11-13 10:27:53 Chadwick Lin [facility] SARS-COV2/RT-PCR ([facility] & 2019-11-13 07:34:00 Krishna Pfeiffer [facility] - REF LABS) [facility] BASIC METABOLIC PANEL 2019-11-13 04:17:00 Davey Pfeiffer [address] POCT-GLUCOSE METER 2019 21:08:00 [facility] 2019 16:56:00 [facility] POCT-[facility]UCOSE METER 2019 11:55:00 [facility] PO[facility]SE METER 2019 07:44:00 [facility] CBC W/PLT COUNT & AUTO 2019 05:49:00 Kristian Scales [facility] BASIC METABOLIC PANEL 2019 05:49:00 Davey Pfeiffer n [facility] () [facility] CALCIUM, IONIZED 2019 05:49:00 Loyda Kristian [facility] MAGNESIUM 2019 05:49:00 [facility] POCT-GLUCOSE METER 2019-11-11 20:48:00 [facility] POCT-GLUCOSE METER 2019-11-11 16:47:00 [facility] POCT-GLUCOSE METER 2019-11-11 11:52:00 [facility] POCT-GLUCOSE METER 2019-11-11 08:00:00 [facility] CALCIUM, IONIZED 2019-11-11 06:23:00 [facility] & AUTO 2019-11-11 04:45:00 Kristian Scales [facility] BASIC METABOLIC PANEL 2019-11-11 04:45:00 Davey Pfeiffer [facility] () [facility] MAGNESIUM 2019-11-11 04:45:00 [facility] [place] CREATINE KINASE (CK) 2019-11-11 04:45:00 Joyce Wray [facility] POCT-GLUCOSE METER 2019-11-10 20:28:00 [facility] POCT-GLUCOSE METER 2019-11-10 11:38:00 Loyda [facility] POCT-GLUCOSE METER 2019-11-10 07:47:00 [facility] CBC W/PLT COUNT & AUTO 2019-11-10 05:25:00 Kristian Scales [facility] BASIC METABOLIC PANEL 2019-11-10 05:25:00 Davey Pfeiffer [address] VANCOMYCIN LEVEL, RANDOM 2019-11-10 05:25:00 Joyce Wray [facility] CALCIUM, IONIZED 2019-11-10 05:25:00 [facility] MAGNESIUM 2019-11-10 05:25:00 [facility]hon[facility]health [facility] center[facility]achiKristianAl[facility] [place] POCT-GLUCOSE METER 2019-11-09 21:15:00 [facility] POCT-GLUCOSE METER 2019-11-09 17:03:00 Loyda [facility] POCT-GLUCOSE METER 2019-11-09 12:02:00 Loyda [facility] POCT-GLUCOSE METER 2019-11-09 07:49:00 Loyda [facility] CBC W/PLT COUNT & AUTO 2019-11-09 04:26:00 Kristian Scales [facility] BASIC METABOLIC PANEL 2019-11-09 04:26:00 Davey Pfeiffer [address] MAGNESIUM 2019-11-09 04:26:00 Margarette [facility] PHOSPHORUS 2019-11-09 04:26:00 Gm Pfeiffer [facility] CALCIUM, IONIZED 2019-11-09 04:26:00 Loyda [facility] POCT-GLUCOSE METER 2019-11-08 21:22:00 Loyda [facility] XR FOOT 2 VIEWS RIGHT 2019-11-08 18:45:00 Star Cloud [facility] POCT-GLUCOSE METER 2019-11-08 17:27:00 Loyda [facility] POCT-GLUCOSE METER 2019-11-08 16:45:00 Loyda [facility] TISSUE EXAM 2019-11-08 15:53:00 Star Cloud [facility] AFB CULTURE + SMEAR 2019-11-08 15:16:46 Star Cloud [facility] (NON-SPUTUM) [facility] ANAEROBIC CULTURE 2019-11-08 15:16:46 Star Cloud [facility] FUNGUS CULTURE + SMEAR 2019-11-08 15:16:46 Star Cloud [facility] SURGICALLY OBTAINED 2019-11-08 15:16:46 Star Cloud [facility] - CULTURE + GRAM STAIN Medical [facility] ter SPIN/CONCENTRATION 2019-11-08 15:16:00 Star Cloud [facility] DEBRIDEMENT/I&D,WOUND 2019-11-08 13:31:00 Star Cloud [facility] EXTREMITY LOWER [facility] OSTECTOMY,FOOT/ TOE 2019-11-08 13:31:00 Star Cloud [facility] AMPUTATION,FOOT 2019-11-08 13:31:00 Star Cloud [facility] SKIN GRAFT,SKIN 2019-11-08 13:31:00 Star Cloud [facility] POCT-GLUCOSE METER 2019-11-08 12:20:00 Kristian Scales [facility] HEMODIALYSIS INPATIENT 2019-11-08 09:22:34 Thierno Rizo [facility] CBC W/PLT COUNT & AUTO 2019-11-08 04:39:00 Thierno Rizo [facility] BASIC METABOLIC PANEL 2019-11-08 04:39:00 Davey Pfeiffer [facility] (7) [facility] MAGNESIUM 2019-11-08 04:39:00 Gm Pfeiffer [facility] PHOSPHORUS 2019-11-08 04:39:00 Margarette [facility] VANCOMYCIN LEVEL, RANDOM 2019-11-08 04:39:00 Thang Mario [facility] POCT-GLUCOSE METER 2019-11-07 21:04:00 [facility] POCT-GLUCOSE METER 2019-11-07 17:09:00 Loyda [facility] POCT-GLUCOSE METER 2019-11-07 12:46:00 [facility] ARTERIAL DOPPLER LEGS 2019-11-07 11:04:00 Pattie Kimball [facility] BILATERAL [facility] PV ARTERIAL ANDREA 2019-11-07 11:04:00 Pattie Kimball [facility] UNILATERAL [facility] POCT-GLUCOSE METER 2019-11-07 05:54:00 Loyda [facility] BASIC METABOLIC PANEL 2019-11-07 04:32:00 Davey Pfeiffer [facility] () [facility] MAGNESIUM 2019-11-07 04:32:00 Margarette [facility] PHOSPHORUS 2019-11-07 04:32:00 Margarette [facility] POCT-GLUCOSE METER 2019-11-07 02:50:00 [facility] POCT-GLUCOSE METER 2019-11-07 00:05:00 Favio Lagunasevartsarabella [facility] POCT-GLUCOSE METER 2019-11-06 23:33:00 Bin Lagunas [facility] POCT-GLUCOSE METER 2019-11-06 20:55:00 Bin Lagunas [facility] POCT-GLUCOSE METER 2019-11-06 17:52:00 Bebo [facility] POCT-GLUCOSE METER 2019-11-06 17:36:00 Favio Lagunasevartsarabella [facility] HEMODIALYSIS INPATIENT 2019-11-06 13:28:26 Thierno Rizo [facility] FERRITIN 2019-11-06 12:06:00 Thierno Rizo [facility] IRON, TIBC, % SAT. 2019-11-06 12:06:[address] [facility] (WITHOUT FERRITIN) [facility] 3 VIEW 2019-11-06 10:31:00 Pattie Kimball [facility] SARS-COV2/RT-PCR ([facility] & 2019-11-06 09:33:00 Krishna Pfeiffer [facility] - REF LABS) [facility] POCT-GLUCOSE METER 2019-11-06 06:42:00 Gm Pfeiffer [facility] POCT-GLUCOSE METER 2019-11-06 06:23:00 Gm Pfeiffer [facility] POCT-GLUCOSE METER 2019-11-06 05:56:00 Gm Pfeiffer [facility] CBC W/PLT COUNT & AUTO 2019-11-06 04:47:00 Thang Mario [facility] CREATINE KINASE (CK) 2019-11-06 04:47:00 [facility] COMPREHENSIVE METABOLIC 2019-11-06 04:47:00 joannjoshuasd [facility] VANCOMYCIN LEVEL, RANDOM 2019-11-06 04:47:00 Fabiano [facility] MAGNESIUM 2019-11-06 04:47:00 Margarette [facility] PHOSPHORUS 2019-11-06 04:47:00 Margarette [facility] BLOOD CULTURE 2019-11-06 04:46:[address] [facility] ECG 12-LEAD 2019-11-06 04:32:40 Margarette [facility] COMPREHENSIVE METABOLIC 2019-11-05 22:39:00 [facility] LACTIC ACID, VENOUS 2019-11-05 22:39:00 Fabiano Thang [facility] BLOOD CULTURE 2019-11-05 22:38:00 MichaelrosibelThang moody [facility] POCT-GLUCOSE METER 2019-11-05 22:13:00 Sara Muniz [facility] POCT-GLUCOSE METER 2019-11-05 21:39:00 Sara Muniz [facility] POCT-GLUCOSE METER 2019-11-05 21:21:00 Sara Muniz [facility] RHYTHM STRIP - SCAN 2019-10-24 11:34:28 Lisa Velasquez [facility] POCT-GLUCOSE METER 2019-10-23 10:56:00 Star Cloud [facility] POCT-GLUCOSE METER 2019-10-23 07:40:00 Star Cloud [facility] POCT-GLUCOSE METER 2019-10-22 20:55:00 Star Cloud [facility] POCT-GLUCOSE METER 2019-10-22 14:46:00 Star Cloud [facility] BASIC METABOLIC PANEL 2019-10-22 08:59:00 Wilder Orantes [address] POCT-GLUCOSE METER 2019-10-22 07:53:00 Star Cloud [facility] POCT-GLUCOSE METER 2019-10-21 21:06:00 Star Cloud [facility] POCT-GLUCOSE METER 2019-10-21 15:35:00 Star Cloud [facility] POCT-GLUCOSE METER 2019-10-21 11:58:00 Star Cloud [facility] POCT-GLUCOSE METER 2019-10-21 07:39:00 Star Cloud [facility] CBC W/PLT COUNT & AUTO 2019-10-21 05:12:00 Dickson Elias [facility] BASIC METABOLIC PANEL 2019-10-21 05:12:00 Dickson Elias [facility] (7) [facility] POCT-GLUCOSE METER 2019-10-20 20:50:00 Star Cloud [facility] POCT-GLUCOSE METER 2019-10-20 17:19:00 Star Cloud [facility] HEMODIALYSIS INPATIENT 2019-10-20 14:26:20 Darrius Pa Isaac xochitl [facility] POCT-GLUCOSE METER 2019-10-20 11:31:00 Star Cloud [facility] HEPATITIS B SURFACE 2019-10-20 10:35:00 Thierno Rizo [facility] POCT-GLUCOSE METER 2019-10-20 07:34:00 Star Cloud [facility] POCT-GLUCOSE METER 2019-10-19 21:26:00 Star Cloud [facility] TRANSFUSION SERVICE 2019-10-19 18:01:02 Provider, Lisa [facility] REPORT - SCAN [facility] POCT-GLUCOSE METER 2019-10-19 16:28:00 Star Cloud [facility] POCT-GLUCOSE METER 2019-10-19 08:21:00 Star Cloud [facility] POCT-GLUCOSE METER 2019-10-18 17:44:00 Star Cloud [facility] RRL CRITICAL LABS 2019-10-18 17:12:26 [facility] - (ABG,NA,K,H&H,GLUCOSE) Medical C enter CALCIUM, IONIZED 2019-10-18 17:12:26 [facility] NA-STAT LAB 2019-10-18 17:12:26 [facility] POT[facility]SI[facility]-STAT LAB 2019-10-18 17:12:26 [facility] GLUCOSE-STAT LAB 2019-10-18 17:12:26 [facility] HGB/HCT (H&H) - STAT LAB 2019-10-18 17:12:26 Deb Chávez [facility] ANAEROBIC CULTURE 2019-10-18 16:23:39 Star Cloud [facility] SURGICALLY OBTAINED 2019-10-18 16:23:39 Star Cloud [facility] - CULTURE + GRAM STAIN Medical [facility] ter ANAEROBIC CULTURE 2019-10-18 16:21:36 Star Cloud [facility] SURGICALLY OBTAINED 2019-10-18 16:21:36 Star Cloud [facility] - CULTURE + GRAM STAIN Medical Juan Alberto ter RRL CRITICAL LABS 2019-10-18 15:52:54 [facility] es - (ABG,NA,K,H&H,GLUCOSE) Medical C enter CALCIUM, IONIZED 2019-10-18 15:52:54 [facility] SODIUM NA-STAT LAB 2019-10-18 15:52:54 [facility] POTASSIUM-STAT LAB 2019-10-18 15:52:54 [facility]SE-STAT [facility] 2019-10-18 15:52:54 [facility] HGB/HCT (H&H) - STAT LAB 2019-10-18 15:52:54 [facility] RRL CRITICAL LABS 2019-10-18 15:05:16 [facility] es - (ABG,NA,K,H&H,GLUCOSE) Medical C enter CALCIUM, IONIZED 2019-10-18 15:05:16 [facility] NA-STAT LAB 2019-10-18 15:05:16 [facility] POTASSIUM-STAT LAB 2019-10-18 15:05:16 [facility] GLUCOSE-STAT LAB 2019-10-18 15:05:16 [facility] HGB/HCT (H&H) - STAT LAB 2019-10-18 15:05:16 [facility] DEBRIDEMENT/I&D,WOUND 2019-10-18 13:44:00 Star Cloud [facility] OSTECTOMY,FOOT/ TOE 2019-10-18 13:44:00 Star Cloud [facility] AMPUTATION,FOOT 2019-10-18 13:44:00 Star Cloud [facility] PLACEMENT,WOUND VAC 2019-10-18 13:44:00 Star Cloud [facility] SKIN GRAFT,SKIN 2019-10-18 13:44:00 Star Cloud [facility] TYPE AND SCREEN, 2019-10-18 07:59:00 Justice [facility] AUTOMATED [facility] HEMOGLOBIN 2019-10-18 07:59:00 Justice [facility] PLATELET COUNT 2019-10-18 07:59:00 Justice [facility] ELECTROLYTE PANEL 2019-10-18 07:58:00 Justice [facility] BUN AND CREATININE 2019-10-18 07:58:00 Justice [facility] W/RATIO [facility] GLUCOSE 2019-10-18 07:58:00 Justice [facility] SARS-COV2/RT-PCR ([facility] & 2019-10-18 07:41:[address] [facility] REF LABS) [facility] POCT-GLUCOSE METER 2019-10-18 06:14:00 Star Cloud [facility] BUN AND CREATININE 2019-09-10 09:20:00 Justice [facility] W/RATIO [facility] ELECTROLYTE PANEL 2019-09-10 09:20:00 Justice [facility] GLUCOSE 2019-09-10 09:20:00 Justice [facility] HEMOGLOBIN 2019-09-10 09:20:00 Justice [facility] RHYTHM STRIP - SCAN 2019-07-04 12:40:46 Provider, [facility] TRANSFUSION SERVICE 2019-06-29 18:00:29 Provider, [facility] - REPORT - SCAN [facility] RHYTHM STRIP - SCAN 2019-06-29 09:01:23 Provider, [facility] REPORT OF PROCEDURE - 2019-06-29 09:01:19 Provider, [facility] ENDOSCOPY SCAN [facility] CARDIAC CATH REPORT - 2019-06-29 09:01:16 Provider, [facility] SCAN [facility] [id number] 2019-06-29 00:00:00 ENCPL [id number] 2019-06-29 00:00:00 ENCPL [id number] 2019-06-29 00:00:00 ENCPL [id number] 2019-06-29 00:00:00 ENCPL [id number] 2019-06-29 00:00:00 ENCPL [id number] 2019-06-29 00:00:00 ENCPL PREPARE LEUKO-REDUCED 2019-06-28 23:54:00 Pepper Hagan [facility] RBC [facility] TRANSFUSION SERVICE 2019-06-28 18:00:20 Provider, [facility] REPORT - [facility] POCT-GLUCOSE METER 2019-06-27 12:06:00 Pepper Hagan [facility] HEMODIALYSIS INPATIENT 2019-06-27 11:56:42 Julio Hurst [facility] TRANSFUSE LEUKO-REDUCED 2019-06-27 10:49:[address] [facility] RED BLOOD CELLS [facility] TYPE AND SCREEN, 2019-06-27 08:45:00 Pepper Hagan [facility] AUTOMATED [facility] POCT-GLUCOSE METER 2019-06-27 07:52:00 Pepper Hagan [facility] CBC W/PLT COUNT & AUTO 2019-06-27 03:39:00 Pepper Hagan [facility] DIFFERENTIAL [facility] BASIC METABOLIC PANEL 2019-06-27 03:39:00 Pepper Hagan [facility] (7) [facility] MAGNESIUM 2019-06-27 03:39:00 Pepper Hagan [facility] PHOSPHORUS 2019-06-27 03:39:00 Pepper Hagan [facility] POCT-GLUCOSE METER 2019-06-26 20:54:00 [facility] PO[facility]SE METER 2019-06-26 16:40:00 [facility] POCT-[facility]SE METER 2019-06-26 11:38:00 Cong [facility] POCT-GLUCOSE METER 2019-06-26 07:08:00 [facility] CBC W/PLT COUNT & AUTO 2019-06-26 03:31:00 Pepper Hagan [facility] BASIC METABOLIC PANEL 2019-06-26 03:31:[address] MAGNESIUM 2019-06-26 03:31:00 [facility] 2019-06-26 03:31:00 Cong [facility] POCT-GLUCOSE METER 2019-06-25 23:51:00 Cong [facility] POCT-GLUCOSE METER 2019-06-25 21:05:00 Cong [facility] POCT-GLUCOSE METER 2019-06-25 16:41:00 Cong [facility] POCT-GLUCOSE METER 2019-06-25 13:46:00 Cong [facility] POCT-GLUCOSE METER 2019-06-25 11:06:00 Cong [facility] HEMODIALYSIS INPATIENT 2019-06-25 08:18:33 Wilder Orantes [facility] POCT-GLUCOSE METER 2019-06-25 07:47:00 Cong [facility] CBC W/PLT COUNT & AUTO 2019-06-25 06:03:00 Pepper Hagan [facility] BASIC METABOLIC PANEL 2019-06-25 06:03:[address] MAGNESIUM 2019-06-25 06:03:00 Cong [facility] PHOSPHORUS 2019-06-25 06:03:00 HaganPepper lord [facility] POCT-GLUCOSE METER 2019-06-24 21:30:00 Merchant, [facility] POCT-GLUCOSE METER 2019-06-24 16:41:00 Merchant, [facility] POCT-GLUCOSE METER 2019-06-24 11:55:00 Merchant, [facility] POCT-GLUCOSE METER 2019-06-24 07:52:00 Merchant, [facility] CBC W/PLT COUNT & AUTO 2019-06-24 04:28:00 HaganPepper lord I [facility] BASIC METABOLIC PANEL 2019-06-24 04:27:00 [facility] ([facility] MAGNESIUM 2019-06-24 04:27:00 Hagan, [facility] PHOSPHORUS 2019-06-24 04:27:00 Hagan, [facility] POCT-GLUCOSE METER 2019-06-23 21:43:00 Merchant, [facility] POCT-GLUCOSE METER 2019-06-23 16:56:00 Merchant, [facility] POCT-GLUCOSE METER 2019-06-23 11:30:00 Merchant, [facility] POCT-GLUCOSE METER 2019-06-23 07:44:00 Merchant, [facility] CBC W/PLT COUNT & AUTO 2019-06-23 04:58:00 Pepper Hagan [facility] BASIC METABOLIC PANEL 2019-06-23 04:58:00 [facility] ([facility] MAGNESIUM 2019-06-23 04:58:00 Hagan, [facility] PHOSPHORUS 2019-06-23 04:58:00 Hagan, [facility] VANCOMYCIN LEVEL, RANDOM 2019-06-23 04:58:00 Joyce Wray [facility] POCT-GLUCOSE METER 2019-06-22 20:50:00 Merchant, [facility] POCT-GLUCOSE METER 2019-06-22 16:55:00 Merchant, [facility] HEMODIALYSIS INPATIENT 2019-06-22 12:02:34 Doe HindsWilder [facility] POCT-GLUCOSE METER 2019-06-22 12:00:00 Merchant, [facility] POCT-GLUCOSE METER 2019-06-22 11:28:00 Merchant, [facility] POCT-GLUCOSE METER 2019-06-22 08:00:00 Merchant, [facility] CBC W/PLT COUNT & AUTO 2019-06-22 04:19:00 Cong [facility] BASIC METABOLIC PANEL 2019-06-22 04:19:00 Pepper Hagan [place] [address]) [facility] MAGNESIUM 2019-06-22 04:19:00 Cong [facility] PHOSPHORUS 2019-06-22 04:19:00 Cong [facility] VANCOMYCIN LEVEL, RANDOM 2019-06-22 04:19:00 DanielleDestini [facility] POCT-GLUCOSE METER 2019-06-21 21:27:00 Merchant, [facility] POCT-GLUCOSE METER 2019-06-21 16:51:00 Merchant, [facility] POCT-GLUCOSE METER 2019-06-21 12:08:00 Merchant, [facility] POCT-GLUCOSE METER 2019-06-21 08:07:00 Merchant, [facility] CBC W/PLT COUNT & AUTO 2019-06-21 03:33:00 Cong [facility] BASIC METABOLIC PANEL 2019-06-21 03:33:[address] MAGNESIUM 2019-06-21 03:33:[address] [facility] PHOSPHORUS 2019-06-21 03:33:[address] [facility] Plan of Care Planned Activity Planned Date Details Comments Source Future Scheduled 2020-11-[address] [facility] 00:00:00 (Season Ended) [code = Medic al Center INFLUENZA VACCINE (Season Ended)] Future Scheduled 2020-10-05 INFLUENZA VACCINE [place] [facility] 00:00:00 [code = INFLUENZA VACCINE] Future Scheduled 2020-09-[address] [facility] 00[facility]00 [facility] Medical Center (procedure) [code = 36346764] Future Scheduled 2020-03-07 Medicare IPPE (WELCOME [facility] 00:[facility]00 TO MEDICARE) [code = Medical Center Medicare IPPE (WELCOME TO MEDICARE)] Future Scheduled 2009-11-11 SHINGLES VACCINES ([address] [facility] - Test 00:00:00 of 2) [code = SHINGLES Medic al Center VACCINES (1 of 2)] Future Scheduled 2009-11-11 COLONOSCOPY SCREENING [place] [facility] 00:00:00 [code = COLONOSCOPY SCREENING] Future Scheduled 2009-11-11 SHINGLES VACCINES (#1) [place] [facility] 00:00:00 [code = SHINGLES VACCINES (#1)] Future Scheduled 1994-11-[address] 00:[facility]00 (procedure) [code = Medical Center [id number]] Future Scheduled 1978-11-11 DTAP/TDAP/TD VACCINES [facility] 00:[facility]:00 (1 - Tdap) [code = Medical C enter DTAP/TDAP/TD VACCINES (1 - Tdap)] Future Scheduled 1977-11-11 HEPATITIS C SCREENING [facility] Test 00:00:00 [code = HEPATITIS C Medical Center SCREENING] Future Scheduled 1975 COVID-19 VACCINE (1) [place] [facility] 00:00:00 [code = COVID-19 VACCINE (1)] Future Scheduled 1969-11-[address] EXAM [facility] Test 00:00:00 [code = DIABETIC EYE Medical Center EXAM] Future Scheduled 1969-11-[address] [facility] 00:00:00 examination Medical Center (regime/therapy) [code = 140008356] Future Scheduled 1969-11-11 Urine screening for [facility] Test 00:00:00 protein (procedure) Medical Center [code = 074686832] Future Scheduled 1969-11-11 DIABETES: RETINAL EYE [place] [facility] 00:00:00 EXAM [code = DIABETES: RETINAL EYE EXAM] Future Scheduled 1969-11-11 DIABETIC FOOT EXAM [place] [facility] 00:00:00 [code = DIABETIC FOOT EXAM] Future Scheduled 1965-11-[address] [facility] - Test 00:00:00 0-64 YRS (1 of 1 - Medical C enter PPSV23) [code = PNEUMOCOCCAL VACCINE 0-64 YRS (1 of 1 - PPSV23)] Future Scheduled [address] [facility] [facility] Test 00:00:00 malignant neoplasm of Medica Center colon (procedure) [code = 582105345] Encounters Start End Encounter Admission Attending Care Care Encounter Source Date/Time Date/Time Type Type Clinicians Facility Department ID 2020-04-16 Outpatient READMISSIO ENCCLR ENCCLR [id number] ENCCLR 10:19:52 N 2020-05-20 2020-05-22 Office RYAN Cloud 1.2.840.114 [id number] 15:57:14 16:30:11 Visit Star A AMBULATOR 350.1.13.21 Y 0.2.7.2.686 [id number] 2020-05-13 2020-05-13 Office RYAN Cloud 1.2.840.114 [id number] 16:12:46 17:00:07 Visit Star A AMBULATOR 350.1.13.21 Y 0.2.7.2.686 [id number] 2020-04-29 2020-04-29 Office RYAN Cloud 1.2.840.114 [id number] 15:18:12 16:41:00 Visit Star A AMBULATOR 350.1.13.21 Y 0.2.7.2.686 [id number] 2020-04-11 2020-04-11 Emergency [facility] [id number] [place] [address] 00:00:00 00:00:00 T[address]NA [address] 2020-04-08 2020-04-08 Office RYAN Cloud 1.2.840.114 [id number] 15:02:21 16:42:00 Visit Star A AMBULATOR 350.1.13.21 Y 0.2.7.2.686 [id number] [facility] 2020-03-11 2020-03-11 Office RYAN Cloud 1.2.840.114 [id number] 22 14:49:58 16:51:58 Visit Star A AMBULATOR 350.1.13.21 Y 0.2.7.2.686 [id number] 5 2020-01-01 2020-01-01 Office RYAN Cloud 1.2.840.114 [id number] 89 16:15:05 16:45:39 Visit Star A AMBULATOR 350.1.13.21 Y 0.2.7.2.686 [id number] [facility] 2020-01-01 2020-01-01 Office RYAN Danielle 1.2.840.114 [id number] 15:18:00 16:17:05 Visit Clark Wilson AMBULATOR 350.1.13.21 Y 0.2.7.2.686 [id number] 2019-12-05 2019-12-05 Office RYAN Cloud 1.2.840.114 [id number] 90 13:43:23 16:06:29 Visit Star A AMBULATOR 350.1.13.21 Y 0.2.7.2.686 [id number] [facility] 2019-10-02 2019-10-02 Office RYAN Cloud 1.2.840.114 [id number] 14:21:54 16:08:48 Visit Star A AMBULATOR 350.1.13.21 Y 0.2.7.2.686 [id number] 2019-09-04 2019-09-04 Office RYAN Cloud 1.2.840.114 [id number] 14:17:20 16:48:51 Visit Star A AMBULATOR 350.1.13.21 Y 0.2.7.2.686 [id number] 2019-09-04 2019-09-04 Office RYAN Danielle 1.2.840.114 [id number] 14:17:07 16:48:39 Visit Clark Wilson AMBULATOR 350.1.13.21 Y 0.2.7.2.686 [id number] 2019-08-21 2019-08-21 Office RYAN Cloud 1.2.840.114 [id number] 16:46:14 16:46:14 Visit Star Bean AMBULATOR 350.1.13.21 Y 0.2.7.2.686 [id number] 2019-08-07 2019-08-07 Office RYAN Cloud 1.2.840.114 [id number] 13:10:09 16:34:44 Visit Star Bean AMBULATOR 350.1.13.21 Y 0.2.7.2.686 [id number] 2019-07-24 2019-07-24 Office RYAN Cloud 1.2.840.114 [id number] 83 13:35:06 14:05:03 Visit Star Bean AMBULATOR 350.1.13.21 Y 0.2.7.2.686 [id number] 825 2019-07-17 2019-07-17 Office RYAN Danielle 1.2.840.114 [id number] 11:22:05 16:23:11 Visit Calrk Wilson AMBULATOR 350.1.13.21 Y 0.2.7.2.686 [id number] 2019-07-14 2019-07-14 Outpatient RECERTIFIC NATALIO ENCCLR ENCCLR [id number] ENCCLR 00:00:00 00:00:00 PATIARIADNA CHIOMA LAY 2019-07-10 2019-07-10 Office RYAN Cloud 1.2.840.114 [id number] 15:58:34 16:52:46 Visit Star Bean AMBULATOR 350.1.13.21 Y 0.2.7.2.686 [id number] 2019-05-10 2019-05-10 Outpatient [facility] [id number] [place] 00:00:00 00:00:00 WILMER Rodriguez [facility] 2019-05-10 2019-05-10 Outpatient TAJIK, [facility] [id number] [place] 00:00:00 00:00:00 WILMER 084 [facility] 2019-05-09 2019-05-09 Outpatient TAJIK, [facility] [id number] [place] 00:00:00 00:00:00 WILMER 863 [facility] 2019-05-08 2019-05-08 Outpatient TAJIK, [facility] [id number] [place] 00:00:00 00:00:00 WILMER 021 [facility] 2018-09-08 2018-09-08 Outpatient ANANDA [facility] [id number] [place] 00:00:00 00:00:00 , ABRAHAM [address] Results Test Description Test Time Test Comments Results Result Comments Source Basic Metabolic Panel 2020-06-19 11:06:00 Test Item Value Reference Range Interpretation Comme nts Sodium (test code = 135 meq/L 136-145 L 2951-2) Potassium (test code = 4.2 meq/L 3.5-5.1 2823-3) Chloride (test code = 98 meq/L 98-107 2075-0) CO2 (test code = 8-9) 27 meq/L 22-29 BUN (test code = 3094-0) 25 mg/dL 7-21 H Creatinine (test code = 6.17 mg/dL 0.57-1.25 H 2160-0) Glucose (test code = 94 mg/dL 70-105 2345-7) Calcium (test code = 8.3 mg/dL 8.4-10.2 L 55890-8) EGFR (test code = 61198-0) 9 mL/min/1.73 sq m ESTIMATED GFR IS NOT ACCURATE CREATININE MARITZA SOFIA IN PREDICTING GLOMERULAR FILT RATION RATE. ESTIMATED GFR IS NOT APPLICAB LE FOR DIALYSIS PATIEN TS. MITCHELL (test code = MITCHELL) Contract Engineer ID - FERNIE Lab Interpretation (test Abnormal code = 04419-8) [facility] METABOLIC [id number] 11:06:00 Test Item Value Reference Range Interpretation Comments SODIUM (BEAKER) 135 meq/L 136-145 L (test code = 381) POTASSIUM (BEAKER) 4.2 meq/L 3.5-5.1 (test code = 379) CHLORIDE (BEAKER) 98 meq/L 98-107 (test code = 382) CO2 (BEAKER) (test 27 meq/L 22-29 code = 355) BLOOD UREA NITROGEN 25 mg/dL 7-21 H (BEAKER) (test code = 354) CREATININE (BEAKER) 6.17 mg/dL 0.57-1.25 H (test code = 358) GLUCOSE RANDOM 94 mg/dL 70-105 (BEAKER) (test code = 652) CALCIUM (BEAKER) 8.3 mg/dL 8.4-10.2 L (test code = 697) EGFR (BEAKER) (test 9 mL/min/1.73 ESTIMAT ED GFR IS code = 1092) sq m NOT ACCURATE CREATININE CLEARANCE IN PREDICTING GLOMERULAR FILTRATION RATE . ESTIMATED GFR I S NOT APPLICABLE FOR DIALYSIS PATIEN TS. Contract Engineer ID - EMERSONCBC (Hemogram only)2020-06-19 06:37:00 Test Item Value Reference Range Interpretation Comments WBC (test code = 6690-2) 8.5 See_Comment [A utomated message] The system [employer] generated this result transmitted ref erence range: 3.5 - 10 .5 K/L. The refe rence range was not u sed to interpret this result as normal/abnor mal. RBC (test code = 789-8) 3.60 See_Comment L [Au tomated message] The system [employer] generated this result transmitted ref erence range: 4.63 - 6 .08 M/L. The refe rence range was not u sed to interpret this result as normal/abnor mal. MCHC (test code = 786-4) 30.8 See_Comment L [A utomated message] The system [employer] generated this result transmitted ref erence range: 32.3 - 3 6.5 GM/DL. The refe rence range was not u sed to interpret this result as normal/abnor mal. Hematocrit (test code = 30.8 % 40.1-51 L 4544-3) MCV (test code = 787-2) 85.6 fL 79-92.2 MCH (test code = 785-6) 26.4 pg 25.7-32.2 RDW (test code = 788-0) 19.1 % 11.6-14.4 H Platelets (test code = 305 See_Comment [Aut omated message] 777-3) The system [employer] generated this result transmitted ref erence range: 150 - 45 0 K/CU MM. The referen ce range was not u sed to interpret this result as normal/abnor mal. MPV (test code = 10.1 fL 9.4-12.4 39347-6) nRBC (test code = 413) 0 See_Comment [Aut omated message] The system [employer] generated this result transmitted ref erence range: 0 - 0 /1 00 WBC. The refere nce range was not u sed to interpret this result as normal/abnor mal. Lab Interpretation (test Abnormal code = 94060-7) [facility] (HEMOGRAM ONLY)2020-06-19 06:37:00 Test Item Value Reference Range Interpretation Comments WHITE BLOOD CELL COUNT (BEAKER) 8.5 K/ L 3.5-10.5 (test code = 775) RED BLOOD CELL COUNT (BEAKER) 3.60 M/ L 4.63-6.08 L (test code = 761) HEMOGLOBIN (BEAKER) (test code = 9.5 GM/DL 13.7-17.5 L 410) HEMATOCRIT (BEAKER) (test code = 30.8 % 40.1-51.0 L 411) MEAN CORPUSCULAR VOLUME (BEAKER) 85.6 fL 79.0-92.2 (test code = 753) MEAN CORPUSCULAR HEMOGLOBIN 26.4 pg 25.7-32.2 (BEAKER) (test code = 751) MEAN CORPUSCULAR HEMOGLOBIN CONC 30.8 GM/DL 32.3-36.5 L (BEAKER) (test code = 752) RED CELL DISTRIBUTION WIDTH 19.1 % 11.6-14.4 H (BEAKER) (test code = 412) PLATELET COUNT (BEAKER) (test 305 K/CU MM 150-450 code = 756) MEAN PLATELET VOLUME (BEAKER) 10.1 fL 9.4-12.4 (test code = 754) NUCLEATED RED BLOOD CELLS 0 /100 WBC 0-0 (BEAKER) (test code = 413) HEMODIALYSIS [id number] 09:50:15Thierno Rizo MD 06/18/2020 9:51 AMIndication: ESRD, Hyperkalemia, Volume overload, Anemia, Uremia Reason for Exam: Adjust target weight, BP fluctuation Rx: F160, 3.5 hrs, 2.0K, 140 Na, 40 HCO3, 2.5 Ca UF: 3.0LBP 147/76 | Pulse 64 | Temp 97.3 F (36.3 C) (Oral) | Resp 18 | Ht 1.854 m (6' 1") | Wt 81.2 kg (179 lb 0.2 oz) | SpO2 99% | BMI 23.62 kg/m2 Lungs: Clear lungs onauscultationHeart: RRRExtremities: Left foot TMA, stump in dressing + vac attached.Access: AVF Labsreviewed Patient tolerating dialysis OK Thierno Rizo MD Wallpaper Inspector And Shipper ProfessorDivision ofNephrologyParkwood Behavioral Health System19:50 [facility] (Asymptomatic ONLY)2020-06-16 13:14:00 Test Item Value Reference Range Interpretation Comments SARS-COV2/RT-PCR Negative Not Detected, (test code = Negative, See 25509-9) external report for linked test SARS-COV-2 [facility] PERFORMING LAB (test code = 57359-1) MITCHELL (test code = Negative result for this MITCHELL) test determines that SARS-CoV-2 RNA was not present in the specimen above the Limit of Detection (LOD). However, Negative results do not preclude SARS-CoV-2 infection and should not be used as the sole basis for treatment or patient management decisions. Negative results must be combined with clinical observations, patient history, and epidemiological information. A false negative result may occur if a specimen is improperly collected, transported or handled. A false negative result should be considered if patient's recent exposures or clinical presentation indicate that COVID-19 (SARS-CoV-2) is likely and diagnostic tests for other causes of illness are negative. Re-testing should be considered in cases of suspected false negatives. The limit of detection for this assay is 800 copies/mL. This SARS CoV-2 test is a real-time RT-PCR test intended for the qualitative detection of nucleic acid from SARS-CoV-2 in a nasopharyngeal swab specimen collected from individuals suspected of COVID-19 by their healthcare provider. This test has not been Food and Drug Administration (FDA) cleared or approved. This is a modified version of an approved Emergency Use Authorization (EUA) and is in the process of review by the FDA. Once authorized by the FDA, the issued EUA will be effective until the declaration that circumstances exist justifying the authorization of the emergency use of in vitro diagnostic tests for detection and/or diagnosis of COVID-19 is terminated under Section 564(b)(2) of the Act or the EUA is revoked under Section 564(g) of the Act. Fact Sheet for Healthcare Providers:https://www.MediKeeper/sites/default/f almita/product/documents/F act_Sheet_HC_Providers_L ppt_LJNJ-BaX-1.pdf Fact Sheet for Healthcare Patients:https://www.Offers.com/sites/default/fi les/product/documents/Fa ct_Sheet_Patients_Lyra_S ARS-CoV-2.pdf Performing Laboratory:[facility] [place] [address].[place] [address] [facility])2020-06-16 13:14:00 Test Item Value Reference Range Interpretation Comments SARS-COV2/RT-PCR (test Negative Not Detected, Negative, code = 7000623) See external report for linked test SARS-COV-2 PERFORMING LAB [facility] (test code = 4742895) Negative result for this test determines that SARS-CoV-2 RNA was not present in the specimen above the Limit of Detection (LOD). However, Negative results do not preclude SARS-CoV-2 infection and should not be used as the sole basis for treatment or patient management decisions. Negative results mustbe combined with clinical observations, patient history, and epidemiological information. A false negative result may occur if a specimen is improperly collected, transported or handled. A false negative result should be considered if patient's recent exposures or clinical presentation indicate that COVID-19 (SARS-CoV-2) is likely and diagnostic tests for other causes of illness are negative. Re-testing should be considered in cases of suspected false negatives.The limit of detection for this assay is 800 copies/mL.This SARS CoV-2 test is a real-time RT-PCR test intended for the qualitative detection of nucleic acid from SARS-CoV-2 in a nasopharyngeal swab specimen collected from individuals susp ected of COVID-19 by their healthcare provider.This test has not been Food and Drug Administration (FDA) cleared or approved. This is a modified version of an approved Emergency Use Authorization (EUA) and is in the process of review by the FDA. Once authorized by the FDA, the issued EUA will be effective until the declaration that circumstances exist justifying the authorization of the emergency use of in vitro diagnostic tests for detection and/or diagnosis of COVID-19 is terminated under Section 564(b)(2) of the Act or the EUA is revoked under Section 564(g) of the Act.Fact Sheet for Healthcare Providers:https://www.Eventyard/sites/default/files/product/documents/Fact_Shee m_OK_Yusctjltn_Wxio_GUDI-EaX-3.pdfFact Sheet for Healthcare Patients:https://www.Eventyard/sites/default/files/product/ documents/Vbjk_Btarm_Wkutmqcq_Kmoz_ITNX-RlY-5.pdfPerforming Laboratory:[address], [place] [id number] 06:05:00 Test Item Value Reference Range Interpretation Comments Phosphorus (test code = 4.4 mg/dL 2.3-4.7 2777-1) MITCHELL (test code = MITCHELL) Contract Engineer ID Benjie PARSONS M Lab Interpretation (test Normal code = 76869-5) [facility] 06:05:00 Test Item Value Reference Range Interpretation Comments PHOSPHORUS (BEAKER) (test code = 4.4 mg/dL 2.3-4.7 604) Contract Engineer SAVANNA PARSONS MPOC-Glucose [id number] 21:46:00 Test Item Value Reference Range Interpretation Comments POC-Glucose Meter (test 124 mg/dL 70-110 H : TE STED AT [facility] code = 1538) [address] [place] [address], [facility] 30: Contract Engineer/Techni estefani ID = [id number] for Zoraida Zhang Lab Interpretation (test Abnormal code = 22831-1) [facility] Center[facility] [id number] 21:46:00 Test Item Value Reference Range Interpretation Comments POC-GLUCOSE METER 124 mg/dL 70-110 H : TESTED A T [facility] 6720 (BEAKER) (test code = [facility], 1538) [address]: Contract Engineer/Techni estefani ID = [id number] for Zoraida Handley POCT-GLUCOSE [id number] 16:20:00 Test Item Value Reference Range Interpretation Comments POC-GLUCOSE METER 125 mg/dL 70-110 H : TESTED A T [facility] 6720 (BEAKER) (test code = [facility], 1538) 27[address]: Contract Engineer/Techni estefani ID = [id number] for Phil Montoya POCT-GLUCOSE [id number] 14:24:00 Test Item Value Reference Range Interpretation Comments POC-GLUCOSE METER 77 mg/dL 70-110 : TESTED A T [facility] 6720 (BEAKER) (test code = [facility], 1538) 22608: Contract Engineer/Techni estefani ID = [id number] for Phil Swanson HEMODIALYSIS [id number] 12:38:15Avery Reeves, SUNITA 06/13/2020 12:40 PM - S/P Hemodialysis x 4 hours - Removed 3 L as tolerated. - AVFistula + B/T, no s/sx of infection noted. No edema/petechiae on site. Bleeding stopped on both arterial and venous access, applied new gauze and taped securely. - Consent verified prior to initiation of treatment. - Report given to Nurse Vilma DORSEY - Patient stable post HD Lab Results Component Value Date WBC 7.5 06/13/2020 HGB 8.7 (L) 06/13/2020 HCT 27.5 (L) 06/13/2020 MCV 84.1 06/13/2020 [id number] 06/13/2020 Lab Results Component Value Date GLUCOSE 89 06/13/2020 CALCIUM 7.9 (L) 06/13/2020NA 136 06/13/2020 K 3.9 06/13/2020 CO2 25 06/13/2020 CL 97 (L) 06/13/2020 BUN 32 (H) 06/13/2020REATININE 7.60 (H) 06/13/2020 Avery VENTURAN, RN [id number] Adult [id number] [id number]OL[facility] [id number] 08:54:00 Test Item Value Reference Range Interpretation Comments SODIUM (BEAKER) 136 meq/L 136-145 (test code = 381) POTASSIUM (BEAKER) 3.9 meq/L 3.5-5.1 (test code = 379) CHLORIDE (BEAKER) 97 meq/L 98-107 L (test code = 382) CO2 (BEAKER) (test 25 meq/L 22-29 code = 355) BLOOD UREA NITROGEN 32 mg/dL 7-21 H (BEAKER) (test code = 354) CREATININE (BEAKER) 7.60 mg/dL 0.57-1.25 H (test code = 358) GLUCOSE RANDOM 89 mg/dL 70-105 (BEAKER) (test code = 652) CALCIUM (BEAKER) 7.9 mg/dL 8.4-10.2 L (test code = 697) EGFR (BEAKER) (test 7 mL/min/1.73 ESTIMAT ED GFR IS code = 1092) sq m NOT ACCURATE CREATININE CLEARANCE IN PREDICTING GLOMERULAR FILTRATION RATE . ESTIMATED GFR I S NOT APPLICABLE FOR DIALYSIS PATIEN TS. Contract Engineer ID - EDASICBC with platelet count + automated [id number] 08:49:00 Test Item Value Reference Range Interpretation Comments WBC (test code = 6690-2) 7.5 See_Comment [A utomated message] The system [employer] generated this result transmitted ref erence range: 3.5 - 10 .5 K/L. The refe rence range was not u sed to interpret this result as normal/abnor mal. RBC (test code = 789-8) 3.27 See_Comment L [Au tomated message] The system [employer] generated this result transmitted ref erence range: 4.63 - 6 .08 M/L. The refe rence range was not u sed to interpret this result as normal/abnor mal. MCHC (test code = 786-4) 31.6 See_Comment L [A utomated message] The system [employer] generated this result transmitted ref erence range: 32.3 - 3 6.5 GM/DL. The refe rence range was not u sed to interpret this result as normal/abnor mal. Hematocrit (test code = 27.5 % 40.1-51 L 4544-3) MCV (test code = 787-2) 84.1 fL 79-92.2 MCH (test code = 785-6) 26.6 pg 25.7-32.2 RDW (test code = 788-0) 18.5 % 11.6-14.4 H Platelets (test code = 217 See_Comment [Aut omated message] 777-3) The system [employer] generated this result transmitted ref erence range: 150 - 45 0 K/CU MM. The referen ce range was not u sed to interpret this result as normal/abnor mal. MPV (test code = 9.8 fL 9.4-12.4 21440-2) nRBC (test code = 413) 0 See_Comment [Aut omated message] The system [employer] generated this result transmitted ref erence range: 0 - 0 /1 00 WBC. The refere nce range was not u sed to interpret this result as normal/abnor mal. % Neutros (test code = 63 % 429) % Lymphs (test code = 16 % 430) % Monos (test code = 9 % 431) % Eos (test code = 432) 11 % % Baso (test code = 437) 1 % # Neutros (test code = 4.67 See_Comment [Aut omated message] 670) The system [employer] generated this result transmitted ref erence range: 1.78 - 5 .38 K/L. The refe rence range was not u sed to interpret this result as normal/abnor mal. # Lymphs (test code = 1.22 See_Comment L [Auto mated message] 414) The system [employer] generated this result transmitted ref erence range: 1.32 - 3 .57 K/L. The refe rence range was not u sed to interpret this result as normal/abnor mal. # Monos (test code = 0.65 See_Comment [Autom ated message] 415) The system [employer] generated this result transmitted ref erence range: 0.30 - 0 .82 K/L. The refe rence range was not u sed to interpret this result as normal/abnor mal. # Eos (test code = 416) 0.83 See_Comment H [Au tomated message] The system [employer] generated this result transmitted ref erence range: 0.04 - 0 .54 K/L. The refe rence range was not u sed to interpret this result as normal/abnor mal. # Baso (test code = 417) 0.10 See_Comment H [A utomated message] The system [employer] generated this result transmitted ref erence range: 0.01 - 0 .08 K/L. The refe rence range was not u sed to interpret this result as normal/abnor mal. Immature 0 % 0-1 Granulocytes-Relative (test code = 2801) Lab Interpretation (test Abnormal code = 67667-8) [facility] W/PLT COUNT & AUTO [id number] 08:49:00 Test Item Value Reference Range Interpretation Comments WHITE BLOOD CELL COUNT (BEAKER) 7.5 K/ L 3.5-10.5 (test code = 775) RED BLOOD CELL COUNT (BEAKER) 3.27 M/ L 4.63-6.08 L (test code = 761) HEMOGLOBIN (BEAKER) (test code = 8.7 GM/DL 13.7-17.5 L 410) HEMATOCRIT (BEAKER) (test code = 27.5 % 40.1-51.0 L 411) MEAN CORPUSCULAR VOLUME (BEAKER) 84.1 fL 79.0-92.2 (test code = 753) MEAN CORPUSCULAR HEMOGLOBIN 26.6 pg 25.7-32.2 (BEAKER) (test code = 751) MEAN CORPUSCULAR HEMOGLOBIN CONC 31.6 GM/DL 32.3-36.5 L (BEAKER) (test code = 752) RED CELL DISTRIBUTION WIDTH 18.5 % 11.6-14.4 H (BEAKER) (test code = 412) PLATELET COUNT (BEAKER) (test 217 K/CU MM 150-450 code = 756) MEAN PLATELET VOLUME (BEAKER) 9.8 fL 9.4-12.4 (test code = 754) NUCLEATED RED BLOOD CELLS 0 /100 WBC 0-0 (BEAKER) (test code = 413) NEUTROPHILS RELATIVE PERCENT 63 % (BEAKER) (test code = 429) LYMPHOCYTES RELATIVE PERCENT 16 % (BEAKER) (test code = 430) MONOCYTES RELATIVE PERCENT 9 % (BEAKER) (test code = 431) EOSINOPHILS RELATIVE PERCENT 11 % (BEAKER) (test code = 432) BASOPHILS RELATIVE PERCENT 1 % (BEAKER) (test code = 437) NEUTROPHILS ABSOLUTE COUNT 4.67 K/ L 1.78-5.38 (BEAKER) (test code = 670) LYMPHOCYTES ABSOLUTE COUNT 1.22 K/ L 1.32-3.57 L (BEAKER) (test code = 414) MONOCYTES ABSOLUTE COUNT (BEAKER) 0.65 K/ L 0.30-0.82 (test code = 415) EOSINOPHILS ABSOLUTE COUNT 0.83 K/ L 0.04-0.54 H (BEAKER) (test code = 416) BASOPHILS ABSOLUTE COUNT (BEAKER) 0.10 K/ L 0.01-0.08 H (test code = 417) IMMATURE GRANULOCYTES-RELATIVE 0 % 0-1 PERCENT (BEAKER) (test code = 2801) POCT-GLUCOSE [id number] 07:58:00 Test Item Value Reference Range Interpretation Comments POC-GLUCOSE METER 75 mg/dL 70-110 : TESTED A T [facility] 6720 (BEAKER) (test code = DASIA Garcia [facility], 1538) 18445: Contract Engineer/Techni estefani ID = [id number] for Will iams, Areiona Fungus culture + [id number] 01:12:00 Test Item Value Reference Range Interpretation Comments Result (test code = <1+ Ciarra A 6463-4) duobushaemulonii Fungus Smear (test No fungi seen code = 1406) Lab Interpretation Abnormal (test code = 53069-8) [facility] [id number] 01:12:00 Test Item Value Reference Range Interpretation Comments CULTURE (BEAKER) A <1+ Ciarar (test code = duobushaemuloni i 1095) FUNGUS SMEAR No fungi seen (BEAKER) (test code = 1406) POCT-GLUCOSE [id number] 21:05:00 Test Item Value Reference Range Interpretation Comments POC-GLUCOSE METER 113 mg/dL 70-110 H : TESTED A T [facility] 6720 (BEAKER) (test code = [facility], 153) 21318: Contract Engineer/Techni estefani ID = [id number] for RON GODWIN POCT-GLUCOSE [id number] 17:14:00 Test Item Value Reference Range Interpretation Comments POC-GLUCOSE METER 104 mg/dL 70-110 : TESTED A T [facility] 6720 (BEAKER) (test code = [facility], 1538) 43455: Contract Engineer/Techni estefani ID = [id number] for PRINCESS LAURA POCT-GLUCOSE [id number] 11:30:00 Test Item Value Reference Range Interpretation Comments POC-GLUCOSE METER 112 mg/dL 70-110 H : TESTED A T [facility] 6720 (BEAKER) (test code = [facility], [facility]) 92654: Contract Engineer/Techni estefani ID = [id number] for PRINCESS LAURA POCT-GLUCOSE [id number] 09:11:00 Test Item Value Reference Range Interpretation Comments POC-GLUCOSE METER 128 mg/dL 70-110 H : TESTED A T [facility] 6720 (BEAKER) (test code = [facility], 153) 37133: Contract Engineer/Techni estefani ID = [id number] for LEW VAZQUEZ, POCT-GLUCOSE [id number] 21:56:00 Test Item Value Reference Range Interpretation Comments POC-GLUCOSE METER 120 mg/dL 70-110 H : TESTED A T [facility] 6720 (BEAKER) (test code = [facility], 153) 85350: Contract Engineer/Techni estefani ID = [id number] for Zoriada Handley HEMODIALYSIS [id number] 18:45:37Manda Neal RN 06/11/2020 6:47 PMPatient dialyzed 3.5 hours via left upper arm AVF with UF of2 liters. Patient tolerated treatment well. Report given to primary RNHector. Lab Results Component Value Date WBC 7.6 06/11/2020 HGB 8.8 (L) 06/11/2020 HCT 28.3 (L) 06/11/2020 MCV 83.5 06/11/2020 PLT 201 06/11/2020 Lab Results Component Value Date GLUCOSE 80 06/07/2020 CALCIUM 7.9 (L) 06/07/2020 NA 135 (L) 06/07/2020 K 3.7 06/07/2020 CO2 24 06/07/2020 CL 100 06/07/2020 BUN 25 (H) 06/07/2020 CREATININE 5.71 (H) 06/07/2020[facility] [id number] 11:53:00 Test Item Value Reference Range Interpretation Comments POC-GLUCOSE METER 102 mg/dL 70-110 : TESTED A T [facility] 6720 (BEAKER) (test code = [facility], 1538) 14231: Contract Engineer/Techni estefani ID = [id number] for Jose rizo, Areiona POCT-GLUCOSE [id number] 08:16:00 Test Item Value Reference Range Interpretation Comments POC-GLUCOSE METER 85 mg/dL 70-110 : TESTED A T [facility] 6720 (BEAKER) (test code = [facility], 1538) 48161: Contract Engineer/Techni estefani ID = [id number] for Will iams, Areiona [id number] 04:45:00 Test Item Value Reference Range Interpretation Comments PHOSPHORUS (BEAKER) (test code = 5.3 mg/dL 2.3-4.7 H 604) Contract Engineer ID - BSCBC W/PLT COUNT & AUTO [id number] 04:10:00 Test Item Value Reference Range Interpretation Comments WHITE BLOOD CELL COUNT (BEAKER) 7.6 K/ L 3.5-10.5 (test code = 775) RED BLOOD CELL COUNT (BEAKER) 3.39 M/ L 4.63-6.08 L (test code = 761) HEMOGLOBIN (BEAKER) (test code = 8.8 GM/DL 13.7-17.5 L 410) HEMATOCRIT (BEAKER) (test code = 28.3 % 40.1-51.0 L 411) MEAN CORPUSCULAR VOLUME (BEAKER) 83.5 fL 79.0-92.2 (test code = 753) MEAN CORPUSCULAR HEMOGLOBIN 26.0 pg 25.7-32.2 (BEAKER) (test code = 751) MEAN CORPUSCULAR HEMOGLOBIN CONC 31.1 GM/DL 32.3-36.5 L (BEAKER) (test code = 752) RED CELL DISTRIBUTION WIDTH 17.9 % 11.6-14.4 H (BEAKER) (test code = 412) PLATELET COUNT (BEAKER) (test 201 K/CU MM 150-450 code = 756) MEAN PLATELET VOLUME (BEAKER) 10.6 fL 9.4-12.4 (test code = 754) NUCLEATED RED BLOOD CELLS 0 /100 WBC 0-0 (BEAKER) (test code = 413) NEUTROPHILS RELATIVE PERCENT 66 % (BEAKER) (test code = 429) LYMPHOCYTES RELATIVE PERCENT 14 % (BEAKER) (test code = 430) MONOCYTES RELATIVE PERCENT 11 % (BEAKER) (test code = 431) EOSINOPHILS RELATIVE PERCENT 9 % (BEAKER) (test code = 432) BASOPHILS RELATIVE PERCENT 1 % (BEAKER) (test code = 437) NEUTROPHILS ABSOLUTE COUNT 5.03 K/ L 1.78-5.38 (BEAKER) (test code = 670) LYMPHOCYTES ABSOLUTE COUNT 1.03 K/ L 1.32-3.57 L (BEAKER) (test code = 414) MONOCYTES ABSOLUTE COUNT (BEAKER) 0.80 K/ L 0.30-0.82 (test code = 415) EOSINOPHILS ABSOLUTE COUNT 0.65 K/ L 0.04-0.54 H (BEAKER) (test code = 416) BASOPHILS ABSOLUTE COUNT (BEAKER) 0.09 K/ L 0.01-0.08 H (test code = 417) IMMATURE GRANULOCYTES-RELATIVE 0 % 0-1 PERCENT (BEAKER) (test code = 2801) POCT-GLUCOSE [id number] 21:00:00 Test Item Value Reference Range Interpretation Comments POC-GLUCOSE METER 145 mg/dL 70-110 H : [facility] 6720 (BEAKER) (test code = DASIA [place]ONG [place], 1538) 24204: Contract Engineer/Techni estefani ID = [id number] for REJI MONTOYA [id number] 17:48:00 Test Item Value Reference Range Interpretation Comments PHOSPHORUS (BEAKER) (test code = 4.9 mg/dL 2.3-4.7 H 604) Contract Engineer ID - BSPOCT-GLUCOSE [id number] 15:50:00 Test Item Value Reference Range Interpretation Comments POC-GLUCOSE METER 116 mg/dL 70-110 H : TESTED A T [facility] 6720 (BEAKER) (test code = [facility], 1538) 67637: Contract Engineer/Techni estefani ID = [id number] for Wi lliams, Areiona POCT-GLUCOSE [id number] 12:42:00 Test Item Value Reference Range Interpretation Comments POC-GLUCOSE METER 86 mg/dL 70-110 : TESTED A T [facility] 6720 (BEAKER) (test code = [facility], 1538) 17935: Contract Engineer/Techni estefani ID = [id number] for Cameron iams, Areiona POCT-GLUCOSE [id number] 08:21:00 Test Item Value Reference Range Interpretation Comments POC-GLUCOSE METER 108 mg/dL 70-110 : TESTED A T [facility] 6720 (BEAKER) (test code = [facility], 1538) 22845: Contract Engineer/Techni estefani ID = [id number] for Wi lliams, Areiona POCT-GLUCOSE [id number] 22:07:00 Test Item Value Reference Range Interpretation Comments POC-GLUCOSE METER 118 mg/dL 70-110 H : TESTED A T [facility] 6720 (BEAKER) (test code = [facility], 1538) 16329: Contract Engineer/Techni estefani ID = [id number] for Zoraida Handley HEMODIALYSIS [id number] 19:37:00Katie Elizalde, RN 06/09/2020 7:37 PMLab Results Component Value Date WBC 7.7 06/07/2020 HGB 8.9 (L) 06/07/2020 HCT 28.7 (L) 06/07/2020 MCV 84.7 06/07/2020 PLT 197 06/07/2020 Lab Results Component Value Date GLUCOSE 80 06/07/2020 CALCIUM 7.9 (L) 06/07/2020 NA 135 (L) 06/07/2020 K 3.7 06/07/2020 CO2 24 06/07/2020 CL 100 06/07/2020 BUN 25 (H) 06/07/2020 CREATININE 5.71 (H) 06/07/2020 Results for DAYTON GRIJALVA ( ) as of 06/09/2020 17:10 Ref. Range 05/29/2020 18:04 HBsAg ScreenLatest Ref Range: Nonreactive Nonreactive HD treatment completed. UF -3L. Accessed through left arm fistula. VS remained stable. Report given to primary RN. Katie Elizalde RNCHI [facility] HospitalPOCT-GLUCOSE [id number] 12:30:00 Test Item Value Reference Range Interpretation Comments POC-GLUCOSE METER 93 mg/dL 70-110 : Notified RN/MD: TESTED ([facility]) (test code = AT [facility] [address] [place] [address]) [facility], [facility] 30: Contract Engineer/Techni estefani ID = [id number] for KELSI , COSHA POCT-GLUCOSE [id number] 07:55:00 Test Item Value Reference Range Interpretation Comments POC-GLUCOSE METER 81 mg/dL 70-110 : Notified RN/MD: TESTED ([facility]) (test code = AT [facility] [address] [place] [place] [address]) [facility], [facility] 30: Contract Engineer/Techni estefani ID = [id number] for KELSI , COSHA POCT-GLUCOSE [id number] 22:01:00 Test Item Value Reference Range Interpretation Comments POC-GLUCOSE METER 104 mg/dL 70-110 : TESTED A T [facility] 6720 (BEAKER) (test code = [facility] R [facility], [facility]8) [address]: Contract Engineer/Techni estefani ID = [id number] for MALGORZATA MORRISON (V)CHRIS POCT-GLUCOSE [id number] 15:55:00 Test Item Value Reference Range Interpretation Comments POC-GLUCOSE METER 95 mg/dL 70-110 : TESTED A T [facility] 6720 (BEAKER) (test code = [facility], 1538) [address]: Contract Engineer/Techni estefani ID = [id number] for David sBetzy POCT-GLUCOSE [id number] 11:37:00 Test Item Value Reference Range Interpretation Comments POC-GLUCOSE METER 82 mg/dL 70-110 : TESTED A T [facility] 6720 (BEAKER) (test code = [facility], 1538) 73068: Contract Engineer/Techni estefani ID = [id number] for David s, Betzy POCT-GLUCOSE [id number] 07:28:00 Test Item Value Reference Range Interpretation Comments POC-GLUCOSE METER 75 mg/dL 70-110 : TESTED A T [facility] 6720 (BEAKER) (test code = [facility], [facility]) 403[address]: Contract Engineer/Techni estefani ID = [id number] for David s, Betzy POCT-GLUCOSE [id number] 22:59:00 Test Item Value Reference Range Interpretation Comments POC-GLUCOSE METER 104 mg/dL 70-110 : TESTED A T [facility] 6720 (BEAKER) (test code = [facility], [facility]) 07661: Contract Engineer/Techni estefani ID = [id number] for TUYET BORJA POCT-GLUCOSE [id number] 16:15:00 Test Item Value Reference Range Interpretation Comments POC-GLUCOSE METER 121 mg/dL 70-110 H : TESTED A T [facility] 6720 (BEAKER) (test code = [facility], [facility]) 19501: Contract Engineer/Techni estefani ID = [id number] for Da vis, Betzy POCT-GLUCOSE [id number] 11:53:00 Test Item Value Reference Range Interpretation Comments POC-GLUCOSE METER 110 mg/dL 70-110 : TESTED A T [facility] 6720 (BEAKER) (test code = [facility], [facility]) 96751: Contract Engineer/Techni estefani ID = [id number] for Da vis, Betzy POCT-GLUCOSE [id number] 07:58:00 Test Item Value Reference Range Interpretation Comments POC-GLUCOSE METER 72 mg/dL 70-110 : TESTED A T [facility] 6720 (BEAKER) (test code = [facility], [facility]8) 50007: Contract Engineer/Techni estefani ID = [id number] for David s, Betzy BASIC METABOLIC [id number] 05:59:00 Test Item Value Reference Range Interpretation Comments SODIUM (BEAKER) 135 meq/L 136-145 L (test code = 381) POTASSIUM (BEAKER) 3.7 meq/L 3.5-5.1 (test code = 379) CHLORIDE (BEAKER) 100 meq/L 98-107 (test code = 382) CO2 (BEAKER) (test 24 meq/L 22-29 code = 355) BLOOD UREA NITROGEN 25 mg/dL 7-21 H (BEAKER) (test code = 354) CREATININE (BEAKER) 5.71 mg/dL 0.57-1.25 H (test code = 358) GLUCOSE RANDOM 80 mg/dL 70-105 (BEAKER) (test code = 652) CALCIUM (BEAKER) 7.9 mg/dL 8.4-10.2 L (test code = 697) EGFR (BEAKER) (test 10 mL/min/1.73 ESTIMA DORIS GFR IS code = 1092) sq m NOT ACCURATE CREATININE CLEARANCE IN PREDICTING GLOMERULAR FILTRATION RATE . ESTIMATED GFR I S NOT APPLICABLE FOR DIALYSIS PATIEN TS. Contract Engineer ID - EDASICBC W/PLT COUNT & AUTO [id number] 05:30:00 Test Item Value Reference Range Interpretation Comments WHITE BLOOD CELL COUNT (BEAKER) 7.7 K/ L 3.5-10.5 (test code = 775) RED BLOOD CELL COUNT (BEAKER) 3.39 M/ L 4.63-6.08 L (test code = 761) HEMOGLOBIN (BEAKER) (test code = 8.9 GM/DL 13.7-17.5 L 410) HEMATOCRIT (BEAKER) (test code = 28.7 % 40.1-51.0 L 411) MEAN CORPUSCULAR VOLUME (BEAKER) 84.7 fL 79.0-92.2 (test code = 753) MEAN CORPUSCULAR HEMOGLOBIN 26.3 pg 25.7-32.2 (BEAKER) (test code = 751) MEAN CORPUSCULAR HEMOGLOBIN CONC 31.0 GM/DL 32.3-36.5 L (BEAKER) (test code = 752) RED CELL DISTRIBUTION WIDTH 17.3 % 11.6-14.4 H (BEAKER) (test code = 412) PLATELET COUNT (BEAKER) (test 197 K/CU MM 150-450 code = 756) MEAN PLATELET VOLUME (BEAKER) 10.5 fL 9.4-12.4 (test code = 754) NUCLEATED RED BLOOD CELLS 0 /100 WBC 0-0 (BEAKER) (test code = 413) NEUTROPHILS RELATIVE PERCENT 64 % (BEAKER) (test code = 429) LYMPHOCYTES RELATIVE PERCENT 16 % (BEAKER) (test code = 430) MONOCYTES RELATIVE PERCENT 8 % (BEAKER) (test code = 431) EOSINOPHILS RELATIVE PERCENT 11 % (BEAKER) (test code = 432) BASOPHILS RELATIVE PERCENT 1 % (BEAKER) (test code = 437) NEUTROPHILS ABSOLUTE COUNT 4.93 K/ L 1.78-5.38 (BEAKER) (test code = 670) LYMPHOCYTES ABSOLUTE COUNT 1.22 K/ L 1.32-3.57 L (BEAKER) (test code = 414) MONOCYTES ABSOLUTE COUNT (BEAKER) 0.65 K/ L 0.30-0.82 (test code = 415) EOSINOPHILS ABSOLUTE COUNT 0.82 K/ L 0.04-0.54 H (BEAKER) (test code = 416) BASOPHILS ABSOLUTE COUNT (BEAKER) 0.09 K/ L 0.01-0.08 H (test code = 417) IMMATURE GRANULOCYTES-RELATIVE 0 % 0-1 PERCENT (BEAKER) (test code = 2801) POCT-GLUCOSE [id number] 22:53:00 Test Item Value Reference Range Interpretation Comments POC-GLUCOSE METER 90 mg/dL 70-110 : TESTED A T [facility] 6720 (BEAKER) (test code = [facility], 1538) 39757: Contract Engineer/Techni estefani ID = [id number] for REJI SWANSON POCT-GLUCOSE [id number] 15:59:00 Test Item Value Reference Range Interpretation Comments POC-GLUCOSE METER 109 mg/dL 70-110 : TESTED A T [facility] 6720 (BEAKER) (test code = [facility], 1538) 76583: Contract Engineer/Techni estefani ID = [id number] for Son Betzy bradshaw HEMODIALYSIS [id number] 11:40:00Justin Faith RN 06/06/2020 12:39 PMPatient was hypertensive during the procedure. Scheduled Hydralazine 50 mg and Carvedilol 12.5 mg given p.o 40 minutes before end of treatment. Procedure tolerated well.HD duration 3.5 hours UF 3 L via left upper arm AV Fistula. Lab Results Component Value Date WBC 7.4 06/02/2020 HGB 8.4 (L) 06/02/2020 HCT 26.4 (L) 06/02/2020 MCV 82.8 06/02/2020 PLT 65584/ Lab Results Component Value Date GLUCOSE 90 06/02/2020 CALCIUM 7.5 (L) 06/02/2020 NA 136 06/02/2020 K 4.8 06/02/2020 CO2 20 (L) 06/02/2020 CL 99 06/02/2020 BUN 68 (H) 06/02/2020 CREATININE 10.03 (H) 06/02/2020 No components found for: HEPSAG Vitals: 06/06/20 1100 BP: 191/81 Pulse: 66 Resp: 15 Temp: SpO2: 99%[facility]HE[facility] [id number] 09:42:53Chadwick Lin MD 06/06/2020 10:34 AM06/06/2020I have personally seen and examined Dayton Grijalva on dialysisIndication : ESRDPrescription: F160, 3 hrs, 2.0K, 2.5 Ca, UF 2 L as toleratedReason for exam:BP fluctuation & adjust dry weightTolerating dialysis ok Start Retacrit for Anemia related to CKD. On oral iron. Chadwick Lin MD Office [phone]/[id number] [facility] [id number] 21:40:00 Test Item Value Reference Range Interpretation Comments POC-GLUCOSE METER 110 mg/dL 70-110 : TESTED A T [facility] 6720 (Shutl) (test code = [facility] [employer] [facility], 1538) [address]: Contract Engineer/Techni estefani ID = [id number] for REJI MONTOYA POCT-GLUCOSE [id number] 16:44:00 Test Item Value Reference Range Interpretation Comments POC-GLUCOSE METER 110 mg/dL 70-110 : TESTED A T [facility] 6720 (Shutl) (test code [facility], = 1538) 23274: Contract Engineer/Techni estefani ID = [id number] for JOSELIN ESCALONA POCT-GLUCOSE [id number] 11:45:00 Test Item Value Reference Range Interpretation Comments POC-GLUCOSE METER 88 mg/dL 70-110 : TESTED A T [facility] 6720 (Shutl) (test code = [facility], 1538) 734[address]: Contract Engineer/Techni estefani ID = [id number] for JOSELIN ESCALONA POCT-GLUCOSE [id number] 08:02:00 Test Item Value Reference Range Interpretation Comments POC-GLUCOSE METER 88 mg/dL 70-110 : TESTED A T [facility] 6720 (BEAKER) (test code = [facility], 1538) [id number]: Contract Engineer/Techni estefani ID = [id number] for MARLENI MUNOZ POCT-GLUCOSE [id number] 21:05:00 Test Item Value Reference Range Interpretation Comments POC-GLUCOSE METER 118 mg/dL 70-110 H : TESTED A T [facility] 6720 (BEAKER) (test code = [facility], 153) 16747: Contract Engineer/Techni estefani ID = [id number] for BEAU BALDERAS POCT-GLUCOSE [id number] 16:34:00 Test Item Value Reference Range Interpretation Comments POC-GLUCOSE METER 131 mg/dL 70-110 H : TESTED A T [facility] 6720 (BEAKER) (test code = [facility], 153) 58260: Contract Engineer/Techni estefani ID = [id number] for DIXON LAMARER, STEVE Anaerobic [id number] 11:42:00 Test Item Value Reference Range Interpretation Comments Result (test code = No anaerobes isolated 6463-4) [facility] [id number] 11:42:00 Test Item Value Reference Range Interpretation Comments CULTURE (BEAKER) (test No anaerobes isolated code = 1095) HEMODIALYSIS [id number] 10:58:17AHernando castro MD 06/04/2020 11:00 AMIndication: ESRD Subjective: seen during treatment, tolerating well. Denies sob. Notes feeling the same since he has been here. Rx: F160, BFR: 350cc/min, DFR: 700cc/min 3.5 hrs, 2.0K, 140 Na, 35 HCO3, 2.5 Ca UF: 2-3L as tolerated by BPBP 179/73 | Pulse 65 | Temp 97.8 F (36.6 C) (Oral) | Resp 18 | Ht 1.854 m (6' 1") | Wt 85.6 kg (188 lb 11.4 oz) | SpO2 96% | BMI 24.90 kg/m2 Physical Exam GENERAL: no acute pain or distress, lying in bedH EENT: moist mucous membranesCARDIOVASCULAR:RRR, S1S2, no murmurs/rubs/gallopsPULMONARY: lungs clear b/l, no wheezing or rhonchiGASTROINTESTINAL: soft, non tender, +bsEXTREMITIES: dressing RLEHD Access:LUE AVF Labs reviewed on last check, K okay, phos elevated--needs low phos diet and renvela renewed,repeat phos. Patient tolerating dialysis OK. Monitor BP with treatment, if remains persistent elevated, increase hydralazine to 75mg tid and monitor response. Hernando Narvaez MD [employer] Inspector [employer] [facility]rologyPark[facility] Health SystemContact via [phone] [facility] 2020-06-03 21:38:00 Test Item Value Reference Range Interpretation Comments POC-GLUCOSE METER 111 mg/dL 70-110 H : TESTED A T [facility] 6720 (Shutl) (test code = [facility], 153) 66059: Contract Engineer/Techni estefani ID = [id number] for BEAU BALDERAS POCT-GLUCOSE [id number] 17:39:00 Test Item Value Reference Range Interpretation Comments POC-GLUCOSE METER 106 mg/dL 70-110 : TESTED A T [facility] 6720 (BEAKER) (test code = [facility], 153) 00678: Contract Engineer/Techni estefani ID = [id number] for PA GEORGE, [place] POCT-GLUCOSE [id number] 11:36:00 Test Item Value Reference Range Interpretation Comments POC-GLUCOSE METER 109 mg/dL 70-110 : TESTED A T [facility] 6720 (BEAKER) (test code = [facility], 153) 15343: Contract Engineer/Techni estefani ID = [id number] for PA RKER, NE POCT-GLUCOSE [id number] 08:59:00 Test Item Value Reference Range Interpretation Comments POC-GLUCOSE METER 75 mg/dL 70-110 : TESTED A T [facility] 6720 (BEAKER) (test code = [facility], 1538) 33533: Contract Engineer/Techni estefani ID = [id number] for [facility] POCT-GLUCOSE [id number] 21:58:00 Test Item Value Reference Range Interpretation Comments POC-GLUCOSE METER 103 mg/dL 70-110 : TESTED A T [facility] 6720 (BEAKER) (test code = [facility], 1538) 14439: Contract Engineer/Techni estefani ID = [id number] for Zoraida Handley POCT-GLUCOSE [id number] 17:38:00 Test Item Value Reference Range Interpretation Comments POC-GLUCOSE METER 107 mg/dL 70-110 : TESTED A T [facility] 6720 (BEAKER) (test code = [facility], 1538) 87466: Contract Engineer/Techni estefani ID = [id number] for LEW VAZQUEZ [facility] POCT-GLUCOSE [id number] 12:56:00 Test Item Value Reference Range Interpretation Comments POC-GLUCOSE METER 125 mg/dL 70-110 H : TESTED A T [facility] 6720 (BEAKER) (test code = [facility], 1538) 16333: Contract Engineer/Techni estefani ID = [id number] for LEW VAZQUEZ [facility] HEMODIALYSIS [id number] 11:55:09Hernando Narvaez MD 06/02/2020 11:57 AMIndication: ESRD, Anemia, Uremia Subjective: seen during treatment, tolerating well. Denies sob and notes feeling better since admission Rx: F160, BFR: 350cc/min, DFR: 600cc/min4 hrs, 2.0K, 140 Na, 35 HCO3, 2.5 Ca UF: 2-3L as tolerated by BPBP 154/58 | Pulse 62 | Temp 97.5 F (36.4 C) (Oral) | Resp 17 | Ht 1.854 m (6' 1") | Wt 83.8 kg (184 lb 11.9 oz) | SpO2 94% | BMI 24.37 kg/m2 Physical Exam GENERAL: no acute pain or distress, sittingup in bedHEENT: moist mucous membranesCARDIOVASCULAR: S1S2, no murmurs/rubs/gallops, RRRPULMONARY: lungs clear b/l, no wheezing or rhonchiGASTROINTESTINAL: soft, non tender, +bsEXTREMITIES: dressing RLEHD Access: LUE AVF Labs reviewed: CO2 20--should improve with HD. Hgb 8.4, monitor Patient tolerating dialysis OK Hernando Narvaez MD Wallpaper Inspector And Shipper ProfessorDivision of NephrologyParkwood Behavioral Health SystemContact via TigerConnect111:[phone] [facility] HospitalType and screen, ogrgxiklp2005-11-21 09:44:00 Test Item Value Reference Range Interpretation Comments ABO/RH AUTOMATED (BEAKER) (test O Positive code = 2260) Ab Scrn (test code = 890-4) Negative [facility])2020-06-02 09:39:00 Test Item Value Reference Range Interpretation Comments SARS-COV2/RT-PCR (test Negative Not Detected, Negative, code = 4874444) See external report for linked test SARS-COV-2 PERFORMING LAB [facility] (test code = 3538461) Negative result for this test determines that SARS-CoV-2 RNA was not present in the specimen above the Limit of Detection (LOD). However, Negative results do not preclude SARS-CoV-2 infection and should not be used as the sole basis for treatment or patient management decisions. Negative results mustbe combined with clinical observations, patient history, and epidemiological information. A false negative result may occur if a specimen is improperly collected, transported or handled. A false negative result should be considered if patient's recent exposures or clinical presentation indicate that COVID-19 (SARS-CoV-2) is likely and diagnostic tests for other causes of illness are negative. Re-testing should be considered in cases of suspected false negatives.The limit of detection for this assay is 800 copies/mL.This SARS CoV-2 test is a real-time RT-PCR test intended for the qualitative detection of nucleic acid from SARS-CoV-2 in a nasopharyngeal swab specimen collected from individuals susp ected of COVID-19 by their healthcare provider.This test has not been Food and Drug Administration (FDA) cleared or approved. This is a modified version of an approved Emergency Use Authorization (EUA) and is in the process of review by the FDA. Once authorized by the FDA, the issued EUA will be effective until the declaration that circumstances exist justifying the authorization of the emergency use of in vitro diagnostic tests for detection and/or diagnosis of COVID-19 is terminated under Section 564(b)(2) of the Act or the EUA is revoked under Section 564(g) of the Act.Fact Sheet for Healthcare Providers:https://www.Eventyard/sites/default/files/product/documents/Fact_Shee s_YG_Povkokvjr_Trpn_LGVN-JwR-1.pdfFact Sheet for Healthcare Patients:https://www.Eventyard/sites/default/files/product/ documents/Ecuz_Dneae_Opnvlgwn_Yxyc_HJPQ-ZvC-2.pdfPerforming Laboratory:[facility], [place] [address]CXML-UUPCQKQ METER 2020-06-02 08:48:00 Test Item Value Reference Range Interpretation Comments POC-GLUCOSE METER 124 mg/dL 70-110 H : [facility] (BEAKER) (test code = DASIA Garcia [facility], 1538) 08145: Contract Engineer/Techni estefani ID = [id number] for LEW VAZQUEZ [facility] BASIC METABOLIC [id number] 08:14:00 Test Item Value Reference Range Interpretation Comments SODIUM (BEAKER) 136 meq/L 136-145 (test code = 381) POTASSIUM (BEAKER) 4.8 meq/L 3.5-5.1 (test code = 379) CHLORIDE (BEAKER) 99 meq/L 98-107 (test code = 382) CO2 (BEAKER) (test 20 meq/L 22-29 L code = 355) BLOOD UREA NITROGEN 68 mg/dL 7-21 H (BEAKER) (test code = 354) CREATININE (BEAKER) 10.03 mg/dL 0.57-1.25 H (test code = 358) GLUCOSE RANDOM 90 mg/dL 70-105 (BEAKER) (test code = 652) CALCIUM (BEAKER) 7.5 mg/dL 8.4-10.2 L (test code = 697) EGFR (BEAKER) (test 5 mL/min/1.73 ESTIMAT ED GFR IS code = 1092) sq m NOT ACCURATE CREATININE CLEARANCE IN PREDICTING GLOMERULAR FILTRATION RATE . ESTIMATED GFR I S NOT APPLICABLE FOR DIALYSIS PATIEN TS. Contract Engineer ID - TIAGO [id number] 08:10:00 Test Item Value Reference Range Interpretation Comments PHOSPHORUS (BEAKER) (test code = 7.0 mg/dL 2.3-4.7 H 604) Contract Engineer ID - TIAGO CVitamin B12 and [id number] 07:23:00 Test Item Value Reference Range Interpretation Comments Vitamin B12 (test 441 pg/mL 213-816 code = 2132-9) Folate (test code = 5.90 ng/mL See_Comment L [Automa doris 2284-8) message] The system which generated this result transmit doris reference range : >=7.00. The reference range was not used to interpret this result as normal/abnormal . MITCHELL (test code = MITCHELL) Contract Engineer ID Benjie Interiano Lab Interpretation Abnormal (test code = 12535-0) [facility] Center[facility]ITAMIN B12 AND [id number] 07:23:00 Test Item Value Reference Range Interpretation Comments VITAMIN B12 (BEAKER) 441 pg/mL 213-816 (test code = 774) FOLATE (BEAKER) 5.90 ng/mL See_Comment L [Automated message] (test code = 362) The system which generated this result transmitted ref erence range: >=7.00. The reference range was not used to interpr et this result as normal/abnormal . Contract Engineer ID - JAQUELINE Zaheer, TIBC, % sat. (without ferritin)2020-06-02 06:48:00 Test Item Value Reference Range Interpretation Comments Iron (test code = 2498-4) 29.0 ug/dL 40-160 L TIBC (test code = 2500-7) 166 ug/dL 250-450 L Iron % Saturation (test 17 % 20-55 L code = 2502-3) MITCHELL (test code = MITCHELL) Contract Engineer ID Benjie Interiano Lab Interpretation (test Abnormal code = 61360-3) [facility] CenterIRON, TIBC, % SAT. (WITHOUT FERRITIN)2020-06-02 06:48:00 Test Item Value Reference Range Interpretation Comments IRON (BEAKER) (test code = 547) 29.0 ug/dL 40.0-160.0 L TOTAL IRON BINDING CAPACITY 166 ug/dL 250-450 L (BEAKER) (test code = 769) IRON % SATURATION (2) (BEAKER) 17 % 20-55 L (test code = 2590) Contract Engineer ID - JAQUELINE [facility] (HEMOGRAM ONLY)2020-06-02 06:37:00 Test Item Value Reference Range Interpretation Comments WHITE BLOOD CELL COUNT (BEAKER) 7.4 K/ L 3.5-10.5 (test code = 775) RED BLOOD CELL COUNT (BEAKER) 3.19 M/ L 4.63-6.08 L (test code = 761) HEMOGLOBIN (BEAKER) (test code = 8.4 GM/DL 13.7-17.5 L 410) HEMATOCRIT (BEAKER) (test code = 26.4 % 40.1-51.0 L 411) MEAN CORPUSCULAR VOLUME (BEAKER) 82.8 fL 79.0-92.2 (test code = 753) MEAN CORPUSCULAR HEMOGLOBIN 26.3 pg 25.7-32.2 (BEAKER) (test code = 751) MEAN CORPUSCULAR HEMOGLOBIN CONC 31.8 GM/DL 32.3-36.5 L (BEAKER) (test code = 752) RED CELL DISTRIBUTION WIDTH 17.0 % 11.6-14.4 H (BEAKER) (test code = 412) PLATELET COUNT (BEAKER) (test 194 K/CU MM 150-450 code = 756) MEAN PLATELET VOLUME (BEAKER) 10.5 fL 9.4-12.4 (test code = 754) NUCLEATED RED BLOOD CELLS 0 /100 WBC 0-0 (BEAKER) (test code = 413) POCT-GLUCOSE [id number] 21:28:00 Test Item Value Reference Range Interpretation Comments POC-GLUCOSE METER 117 mg/dL 70-110 H : TESTED A T [facility] 6720 (BEAKER) (test code = DASIA [place], 1538) 32724: Contract Engineer/Techni estefani ID = [id number] for REJI MONTOYA POCT-GLUCOSE [id number] 17:07:00 Test Item Value Reference Range Interpretation Comments POC-GLUCOSE METER 107 mg/dL 70-110 : TESTED A T [facility] 6720 (BEAKER) (test code = [facility] [place], 1538) 78187: Contract Engineer/Techni estefani ID = [id number] for Kingsley Haley [id number] 16:04:00 Test Item Value Reference Range Interpretation Comments Ferritin (test code = 322.82 ng/mL 5-275 H 2276-4) MITCHELL (test code = MITCHELL) Contract Engineer ID - DB Lab Interpretation (test Abnormal code = 14664-6) [facility] CenterFERRITIN2021-03-28 16:04:00 Test Item Value Reference Range Interpretation Comments FERRITIN (BEAKER) (test code = 322.82 ng/mL 5.00-275.00 H 361) Contract Engineer ID - DBSURGICALLY OBTAINED CULTURE + GRAM [id number] 12:53:00 Test Item Value Reference Interpretation Comments Range CULTURE (BEAKER) PSEUDOMONAS A 2+ Pseudomo ronda (test code = 1095) AERUGINOSA aeruginos a Amikacin (test code = See_Comment S [Auto mated 1) message] The system which generated this result transmit doris reference range : Susceptible 0-1 6 , Resistant <0 or >16 . The reference range was not used to interpret this result as normal/abnormal . Aztreonam (test code See_Comment R [Autom ated = 32) message] The system which generated this result transmit doris reference range : Susceptible 0-8 , Resistant <0 or >8 . The reference range was not u sed to interpret th is result as normal/abnormal . Cefepime (test code = See_Comment R [Auto mated 51) message] The system which generated this result transmit doris reference range : Susceptible 0-8 , Resistant <0 or >8 . The reference range was not u sed to interpret th is result as normal/abnormal . Ceftazidime (test See_Comment R [Automate d code = 27) message] The system which generated this result transmit doris reference range : Susceptible 0-8 , Resistant <0 or >8 . The reference range was not u sed to interpret th is result as normal/abnormal . Ciprofloxacin (test See_Comment S [Automa doris code = 7) message] The system which generated this result transmit doris reference range : Susceptible 0-0 .5 , Resistant <0 or >.5 . The reference range was not used to interpret this result as normal/abnormal . Gentamicin (test code See_Comment S [Auto mated = 18) message] The system which generated this result transmit doris reference range : Susceptible 0-4 , Resistant <0 or >4 . The reference range was not u sed to interpret th is result as normal/abnormal . Imipenem (test code = See_Comment R [Auto mated 19) message] The system which generated this result transmit doris reference range : Susceptible 0-2 , Resistant <0 or >2 . The reference range was not u sed to interpret th is result as normal/abnormal . Levofloxacin (test See_Comment R [Automat ed code = 22) message] The system which generated this result transmit doris reference range : Susceptible 0-1 , Resistant <0 or >1 . The reference range was not u sed to interpret th is result as normal/abnormal . Meropenem (test code See_Comment R [Autom ated = 34) message] The system which generated this result transmit doris reference range : Susceptible 0-2 , Resistant <0 or >2 . The reference range was not u sed to interpret th is result as normal/abnormal . Piperacillin (test See_Comment R [Automat ed code = 24) message] The system which generated this result transmit doris reference range : Susceptible 0-1 6 , Resistant <0 or >16 . The reference range was not used to interpret this result as normal/abnormal . Piperacillin + See_Comment R [Automated Tazobactam (test code messag e] The = 29) system which generated this result transmit doris reference range : Susceptible 0-1 6 , Resistant <0 or >16 . The reference range was not used to interpret this result as normal/abnormal . Tobramycin (test code See_Comment S [Auto mated = 25) message] The system which generated this result transmit doris reference range : Susceptible 0-4 , Resistant <0 or >4 . The reference range was not u sed to interpret th is result as normal/abnormal . CULTURE (BEAKER) PSEUDOMONAS A 2+ Pseudomo ronda (test code = 1095) AERUGINOSA aeruginos aof a second type Amikacin (test code = See_Comment S [Auto mated 1) message] The system which generated this result transmit doris reference range : Susceptible 0-1 6 , Resistant <0 or >16 . The reference range was not used to interpret this result as normal/abnormal . Aztreonam (test code See_Comment R [Autom ated = 32) message] The system which generated this result transmit doris reference range : Susceptible 0-8 , Resistant <0 or >8 . The reference range was not u sed to interpret th is result as normal/abnormal . Cefepime (test code = See_Comment R [Auto mated 51) message] The system which generated this result transmit doris reference range : Susceptible 0-8 , Resistant <0 or >8 . The reference range was not u sed to interpret th is result as normal/abnormal . Ceftazidime (test See_Comment R [Automate d code = 27) message] The system which generated this result transmit doris reference range : Susceptible 0-8 , Resistant <0 or >8 . The reference range was not u sed to interpret th is result as normal/abnormal . Ciprofloxacin (test See_Comment R [Automa doris code = 7) message] The system which generated this result transmit doris reference range : Susceptible 0-0 .5 , Resistant <0 or >.5 . The reference range was not used to interpret this result as normal/abnormal . Gentamicin (test code See_Comment S [Auto mated = 18) message] The system which generated this result transmit doris reference range : Susceptible 0-4 , Resistant <0 or >4 . The reference range was not u sed to interpret th is result as normal/abnormal . Imipenem (test code = See_Comment R [Auto mated 19) message] The system which generated this result transmit doris reference range : Susceptible 0-2 , Resistant <0 or >2 . The reference range was not u sed to interpret th is result as normal/abnormal . Levofloxacin (test See_Comment R [Automat ed code = 22) message] The system which generated this result transmit doris reference range : Susceptible 0-1 , Resistant <0 or >1 . The reference range was not u sed to interpret th is result as normal/abnormal . Meropenem (test code See_Comment R [Autom ated = 34) message] The system which generated this result transmit doris reference range : Susceptible 0-2 , Resistant <0 or >2 . The reference range was not u sed to interpret th is result as normal/abnormal . Piperacillin (test See_Comment R [Automat ed code = 24) message] The system which generated this result transmit doris reference range : Susceptible 0-1 6 , Resistant <0 or >16 . The reference range was not used to interpret this result as normal/abnormal . Piperacillin + See_Comment R [Automated Tazobactam (test code messag e] The = 29) system which generated this result transmit doris reference range : Susceptible 0-1 6 , Resistant <0 or >16 . The reference range was not used to interpret this result as normal/abnormal . Tobramycin (test code See_Comment S [Auto mated = 25) message] The system which generated this result transmit doris reference range : Susceptible 0-4 , Resistant <0 or >4 . The reference range was not u sed to interpret th is result as normal/abnormal . CULTURE (BEAKER) STAPHYLOCOCCUS A 2+ Staphy lococcus (test code = 1095) AUREUS aureus Clindamycin (test S code = 10) Erythromycin (test S code = 4) Linezolid (test code S = 40) Nitrofurantoin (test S code = 23) Oxacillin (test code S = 14) Rifampin (test code = S 43) Tetracycline (test S code = 2) Trimethoprim + S Sulfamethoxazole (test code = 47) Vancomycin (test code S = 13) CULTURE (BEAKER) STAPHYLOCOCCUS A 1+ Staphy lococcus (test code = 1095) EPIDERMIDIS epidermid is Clindamycin (test R code = 10) Erythromycin (test R code = 4) Linezolid (test code S = 40) Nitrofurantoin (test S code = 23) Oxacillin (test code R = 14) Rifampin (test code = S 43) Tetracycline (test S code = 2) Trimethoprim + R Sulfamethoxazole (test code = 47) Vancomycin (test code S = 13) GRAM STAIN RESULT 1+ WBCs (BEAKER) (test code = 1123) GRAM STAIN RESULT <1+ gram negative (BEAKER) (test code = rods 818113) GRAM STAIN RESULT <1+ yeast (BEAKER) (test code = 520937) POCT-GLUCOSE [id number] 11:55:00 Test Item Value Reference Range Interpretation Comments POC-GLUCOSE METER 125 mg/dL 70-110 H : TESTED A T [facility] 6720 (BEAKER) (test code = [facility] [place] [place], 1538) 02957: Contract Engineer/Techni estefani ID = [id number] for Wa re, Charnita POCT-GLUCOSE [id number] 08:56:00 Test Item Value Reference Range Interpretation Comments POC-GLUCOSE METER 85 mg/dL 70-110 : TESTED A T [facility] 6720 (BEAKER) (test code = [facility], 153) 04712: Contract Engineer/Techni estefani ID = [id number] for Kingsley Lagunas POCT-GLUCOSE [id number] 22:47:00 Test Item Value Reference Range Interpretation Comments POC-GLUCOSE METER 119 mg/dL 70-110 H : TESTED A T [facility] 6720 (BEAKER) (test code = [facility], 153) 57290: Contract Engineer/Techni estefani ID = [id number] for REJI MONTOYA POCT-GLUCOSE [id number] 16:45:00 Test Item Value Reference Range Interpretation Comments POC-GLUCOSE METER 123 mg/dL 70-110 H : TESTED A T [facility] 6720 (BEAKER) (test code = [facility], 153) 02043: Contract Engineer/Techni estefani ID = [id number] for LEW VAZQUEZ NE POCT-GLUCOSE [id number] 11:29:00 Test Item Value Reference Range Interpretation Comments POC-GLUCOSE METER 129 mg/dL 70-110 H : TESTED A T [facility] 6720 (BEAKER) (test code = [facility], 153) 32857: Contract Engineer/Techni estefani ID = [id number] for PRINCESS LAURA POCT-GLUCOSE [id number] 08:48:00 Test Item Value Reference Range Interpretation Comments POC-GLUCOSE METER 98 mg/dL 70-110 : TESTED A T [facility] 6720 (BEAKER) (test code = [facility], 153) 01291: Contract Engineer/Techni estefani ID = [id number] for FAITH WARD NE BASIC METABOLIC [id number] 06:32:00 Test Item Value Reference Range Interpretation Comments SODIUM (BEAKER) 138 meq/L 136-145 (test code = 381) POTASSIUM (BEAKER) 4.3 meq/L 3.5-5.1 (test code = 379) CHLORIDE (BEAKER) 101 meq/L 98-107 (test code = 382) CO2 (BEAKER) (test 24 meq/L 22-29 code = 355) BLOOD UREA NITROGEN 46 mg/dL 7-21 H (BEAKER) (test code = 354) CREATININE (BEAKER) 6.62 mg/dL 0.57-1.25 H (test code = 358) GLUCOSE RANDOM 99 mg/dL 70-105 (BEAKER) (test code = 652) CALCIUM (BEAKER) 8.0 mg/dL 8.4-10.2 L (test code = 697) EGFR (BEAKER) (test 9 mL/min/1.73 ESTIMAT ED GFR IS code = 1092) sq m NOT ACCURATE CREATININE CLEARANCE IN PREDICTING GLOMERULAR FILTRATION RATE . ESTIMATED GFR I S NOT APPLICABLE FOR DIALYSIS PATIEN TS. Contract Engineer ID - ADMINCBC (HEMOGRAM ONLY)2020-05-31 05:42:00 Test Item Value Reference Range Interpretation Comments WHITE BLOOD CELL COUNT (BEAKER) 7.5 K/ L 3.5-10.5 (test code = 775) RED BLOOD CELL COUNT (BEAKER) 3.37 M/ L 4.63-6.08 L (test code = 761) HEMOGLOBIN (BEAKER) (test code = 8.7 GM/DL 13.7-17.5 L 410) HEMATOCRIT (BEAKER) (test code = 28.6 % 40.1-51.0 L 411) MEAN CORPUSCULAR VOLUME (BEAKER) 84.9 fL 79.0-92.2 (test code = 753) MEAN CORPUSCULAR HEMOGLOBIN 25.8 pg 25.7-32.2 (BEAKER) (test code = 751) MEAN CORPUSCULAR HEMOGLOBIN CONC 30.4 GM/DL 32.3-36.5 L (BEAKER) (test code = 752) RED CELL DISTRIBUTION WIDTH 17.2 % 11.6-14.4 H (BEAKER) (test code = 412) PLATELET COUNT (BEAKER) (test 209 K/CU MM 150-450 code = 756) MEAN PLATELET VOLUME (BEAKER) 10.4 fL 9.4-12.4 (test code = 754) NUCLEATED RED BLOOD CELLS 0 /100 WBC 0-0 (BEAKER) (test code = 413) POCT-GLUCOSE [id number] 21:12:00 Test Item Value Reference Range Interpretation Comments POC-GLUCOSE METER 169 mg/dL 70-110 H : TESTED A T [facility] 6720 (BEAKER) (test code = [facility], 1538) 58293: Contract Engineer/Techni estefani ID = [id number] for Zoraida Handley POCT-GLUCOSE [id number] 16:05:00 Test Item Value Reference Range Interpretation Comments POC-GLUCOSE METER 158 mg/dL 70-110 H : TESTED A T [facility] 6720 (BEAKER) (test code = [facility], 1538) 80471: Contract Engineer/Techni estefani ID = [id number] for MELODY DOS SANTOS POCT-GLUCOSE [id number] 12:40:00 Test Item Value Reference Range Interpretation Comments POC-GLUCOSE METER 113 mg/dL 70-110 H : TESTED A T [facility] 6720 (BEAKER) (test code = [facility], 153) 69146: Contract Engineer/Techni estefani ID = [id number] for MELODY DOS SANTOS SPIN/CONCENTRATION [id number] 09:31:00 Test Item Value Reference Range Interpretation Comments Concentration charged (test code = Done 2657) [facility] [id number] 09:31:00 Test Item Value Reference Range Interpretation Comments CONCENTRATION CHARGED (BEAKER) (test Done code = 2657) HEMODIALYSIS [id number] 09:08:26Chadwick Lin MD 05/30/2020 11:02 AM05/30/2020I have personally seen and examined Dayton Grijalva on dialysisIndication : ESRDPrescription: F160, 3-4 hrs, 2.0K, 2.5 Ca, UF 2 litersReason for exam: BP fluctuation & adjust dry weightTolerating dialysis ok Chadwick Lin MD Office [phone]/26/20219:08 [facility] [id number] 08:07:00 Test Item Value Reference Range Interpretation Comments POC-GLUCOSE METER 116 mg/dL 70-110 H : TESTED A T [facility] 6720 (BEAKER) (test code = [facility], 153) 34478: Contract Engineer/Techni estefani ID = [id number] for WH ITMAN, MELODY POCT-GLUCOSE [id number] 21:03:00 Test Item Value Reference Range Interpretation Comments POC-GLUCOSE METER 194 mg/dL 70-110 H : TESTED A T [facility] 6720 (BEAKER) (test code = DASIA Garcia [facility], 1538) 46607: Contract Engineer/Techni estefani ID = [id number] for REJI MONTOYA Hepatitis B surface [id number] 19:08:00 Test Item Value Reference Range Interpretation Comments HBsAg Screen (test code Nonreactive Nonreactive = 5195-3) MITCHELL (test code = MITCHELL) Specimen is considered negative for HBsAg. Lab Interpretation (test Normal code = 28917-3) [facility] SUR[facility] [id number] 19:08:00 Test Item Value Reference Range Interpretation Comments HEPATITIS B SURFACE ANTIGEN (2) Nonreactive Nonreactive (BEAKER) (test code = 2585) Specimen is considered negative for HBsAg.POCT-GLUCOSE [id number] 17:02:00 Test Item Value Reference Range Interpretation Comments POC-GLUCOSE METER 142 mg/dL 70-110 H : TESTED A T [facility] 6720 (BEAKER) (test code = DASIA Garcia [place], 1538) 59607: Contract Engineer/Techni estefani ID = [id number] for EDSON MEJIA HGB/HCT (H&H)-Stat [id number] 07:13:00 Test Item Value Reference Range Interpretation Comments Hemoglobin (test code = 10.0 See_Comment L [Au tomated message] 786-4) The system [employer] generated this result transmitted ref erence range: 13.0 - 1 6.8 GM/DL. The refe rence range was not u sed to interpret this result as normal/abnor mal. Hematocrit (test code = 29.0 % 40-50 L 4544-3) Lab Interpretation (test Abnormal code = 10721-8) [facility] [id number] 07:13:00 Test Item Value Reference Range Interpretation Comments Glucose (test code = 2345-7) 122 mg/dL 70-110 H Lab Interpretation (test code = Abnormal 44824-9) [facility] [id number] 07:13:00 Test Item Value Reference Range Interpretation Comments GLUCOSE RANDOM (BEAKER) (test code 122 mg/dL 70-110 H = 652) HGB/HCT (H&H) - STAT [id number] 07:13:00 Test Item Value Reference Range Interpretation Comments HEMOGLOBIN (BEAKER) (test code = 10.0 GM/DL 13.0-16.8 L 410) HEMATOCRIT (BEAKER) (test code = 29.0 % 40.0-50.0 L 411) Potassium-Stat [id number] 07:11:00 Test Item Value Reference Range Interpretation Comments Potassium (test code = 2823-3) 4.6 meq/L 3.6-5.5 Lab Interpretation (test code = Normal 25277-0) [facility] [id number] 07:11:00 Test Item Value Reference Range Interpretation Comments POTASSIUM (BEAKER) (test code = 4.6 meq/L 3.6-5.5 379) POCT-GLUCOSE [id number] 06:01:00 Test Item Value Reference Range Interpretation Comments POC-GLUCOSE METER 118 mg/dL 70-110 H : TESTED A T [facility] 6720 (BEAKER) (test code [facility], = 1538) [address]: Contract Engineer/Techni estefani ID = [id number] for JORD AN, LACRYSTAL SARS-COV2/RT-PCR ([facility])2020-05-28 03:28:00 Test Item Value Reference Range Interpretation Comments SARS-COV2/RT-PCR (test Negative Not Detected, Negative, code = 2173028) See external report for linked test SARS-COV-2 PERFORMING LAB [facility] KEELY (test code = 9793602) Negative result for this test determines that SARS-CoV-2 RNA was not present in the specimen above the Limit of Detection (LOD). However, Negative results do not preclude SARS-CoV-2 infection and should not be used as the sole basis for treatment or patient management decisions. Negative results mustbe combined with clinical observations, patient history, and epidemiological information. A false negative result may occur if a specimen is improperly collected, transported or handled. A false negative result should be considered if patient's recent exposures or clinical presentation indicate that COVID-19 (SARS-CoV-2) is likely and diagnostic tests for other causes of illness are negative. Re-testing should be considered in cases of suspected false negatives.The limit of detection for this assay is 100 copies/mL.This SARS CoV-2 test is a real-time RT-PCR test intended for the qualitative detection of nucleic acid from SARS-CoV-2 in a nasopharyngeal swab specimen collected from individuals susp ected of COVID-19 by their healthcare provider.This test has not been Food and Drug Administration (FDA) cleared or approved. This is a modified version of an approved Emergency Use Authorization (EUA) and is in the process of review by the FDA. Once authorized by the FDA, the issued EUA will be effective until the declaration that circumstances exist justifying the authorization of the emergency use of in vitro diagnostic tests for detection and/or diagnosis of COVID-19 is terminated under Section 564(b)(2) of the Act or the EUA is revoked under Section 564(g) of the Act.Testing was performed using the Giles SARS-CoV-2 assay.Fact Sheet for Healthcare Providers:https://www.[employer].giles/ari/ KZ_RMLG-GyK-5_NGC_Kbvs_Tzyko_04-390261.pdfFact Sheet for Healthcare Patients:https://www.[employer].TextPayMe radha/ari/HN_FURY-KfS-7_Sgywsqq_Kuqj_Xtdni_FF_89-685546C2.pdfPerforming Laboratory:[facility], [place] [address]GWM and [id number] 14:16:00 Test Item Value Reference Range Interpretation Comments BUN (test code = 60 mg/dL 7-21 H 3094-0) Creatinine (test code 7.43 mg/dL 0.57-1.25 H = 2160-0) BUN/Creatinine ratio 8 For a normal (test code = 3097-3) individ ual on a normal diet, th e reference interval for th e mass ratio rang es between 12:1 an d 20:1 (BUN in mg/dL/creatinin e in mg/dL) EGFR (test code = 8 mL/min/1.73 [place] [address]-7) NOT ACCURATE CREATININE CLEARANCE IN PREDICTING GLOMERULAR FILTRATION RATE . ESTIMATED GFR I S NOT APPLICABLE FOR DIALYSIS PATIENTS. MITCHELL (test code = MITCHELL) Contract Engineer ID - ANTONY Miles Lab Interpretation Abnormal (test code = 44641-9) [facility] CenterB[facility] AND CREATININE [id number] 14:16:00 Test Item Value Reference Range Interpretation Comments BLOOD UREA NITROGEN 60 mg/dL 7-21 H (BEAKER) (test code = 354) CREATININE (BEAKER) 7.43 mg/dL 0.57-1.25 H (test code = 358) BUN/CREAT RATIO 8 For a normal (BEAKER) (test code individu al on a = [id number]) normal diet, t he reference inter anthony for the mass ra chuck ranges between 12:1 and 20:1 (BUN i n mg/dL/creatinin e in mg/dL) EGFR (BEAKER) (test 8 mL/min/1.73 ESTIMAT ED GFR IS code = 1092) sq m NOT ACCURATE CREATININE CLEARANCE IN PREDICTING GLOMERULAR FILTRATION RATE . ESTIMATED GFR I S NOT APPLICABLE FOR DIALYSIS PATIEN TS. Contract Engineer ID Benjie HARDY UBeomkowzrznc5076-32-53 14:15:00 Test Item Value Reference Range Interpretation Comments Sodium (test code = 136 meq/L 875-812 7399-2) Potassium (test code = 4.0 meq/L 3.5-5.1 2823-3) Chloride (test code = 96 meq/L 98-107 L 2075-0) CO2 (test code = 8-9) 25 meq/L 22-29 MITCHELL (test code = MITCHELL) Contract Engineer ID Benjie Miles Lab Interpretation (test Abnormal code = 65435-0) [facility] Center[facility]ucose2021-03-23 14:15:00 Test Item Value Reference Range Interpretation Comments Glucose (test code = 164 mg/dL 70-105 H 2345-7) MITCHELL (test code = MITCHELL) Contract Engineer ID - ANTONY Miles Lab Interpretation (test Abnormal code = 01209-4) [facility] CenterELECTROLYTES2021-03-23 14:15:00 Test Item Value Reference Range Interpretation Comments SODIUM (BEAKER) (test code = 381) 136 meq/L 136-145 POTASSIUM (BEAKER) (test code = 4.0 meq/L 3.5-5.1 379) CHLORIDE (BEAKER) (test code = 382) 96 meq/L 98-107 L CO2 (BEAKER) (test code = 355) 25 meq/L 22-29 Contract Engineer ID - ANTONY [id number] 14:15:00 Test Item Value Reference Range Interpretation Comments GLUCOSE RANDOM (BEAKER) (test code 164 mg/dL 70-105 H = 652) Contract Engineer ID - ANTONY FPT/aSFR7524-58-12 14:01:00 Test Item Value Reference Interpretation Comments Range Protime (test code = 14.8 See_Comment H [Autom ated 5902-2) message] The system which generated this result transmitted reference range : 11.9 - 14.2 seconds. The reference range was not used to interpret this result as normal/abnormal . INR (test code = 1.19 See_Comment [Automated 9921-6) message] The system which generated this result transmitted reference range : <=5.90. The reference range was not used to interpret this result as normal/abnormal . PTT (test code = 38.3 See_Comment H [Automated 27080-1) message] The system which generated this result transmitted reference range : 22.5 - 36.0 seconds. The reference range was not used to interpret this result as normal/abnormal . MITCHELL (test code = RECOMMENDED MITCHELL) COUMADIN/WARFARIN INR THERAPY RANGESSTANDARD DOSE: 2.0 - 3.0 Includes: PROPHYLAXIS for venous thrombosis, systemic embolization; TREATMENT for venous thrombosis and/or pulmonary embolus.HIGH RISK: Target INR is 2.5-3.5 for patients with mechanical heart valves. Lab Interpretation Abnormal (test code = 95117-4) [facility] CenterPT/[id number] 14:01:00 Test Item Value Reference Range Interpretation Comments PROTIME (BEAKER) (test 14.8 seconds 11.9-14.2 H code = 759) INR (BEAKER) (test 1.19 See_Comment [Automat ed code = 370) message] The sy stem which generated this result transmitted reference range : <=5.90. The reference range was not used to interpret this result as normal/abnormal . PARTIAL THROMBOPLASTIN 38.3 seconds 22.5-36.0 H TIME (BEAKER) (test code = 760) RECOMMENDED COUMADIN/WARFARIN INR THERAPY RANGESSTANDARD DOSE: 2.0 - 3.0 Includes: PROPHYLAXIS forvenous thrombosis, systemic embolization; TREATMENT for venous thrombosis and/or pulmonary embolus.HIGH RISK: Target INR is 2.5-3.5 for patients with mechanical heart valves.Xbrhfigowt1719-04-10 13:54:00 Test Item Value Reference Range Interpretation Comments Hemoglobin (test code 10.3 See_Comment L [Auto mated = 786-4) message] The system which generated this result transmit doris reference range : 13.7 - 17.5 GM/ DL. The reference range was not u sed to interpret th is result as normal/abnormal . MITCHELL (test code = MITCHELL) Contract Engineer ID - [id number] Lab Interpretation Abnormal (test code = 57472-6) [facility] CenterHEMOGLOBIN2021-03-23 13:54:00 Test Item Value Reference Range Interpretation Comments HEMOGLOBIN (BEAKER) (test code = 10.3 GM/DL 13.7-17.5 L 410) Contract Engineer ID - [id number] culture + smear (non-sputum)2020-04-29 09:42:00 Test Item Value Reference Range Interpretation Comments Result (test code = No acid-fast bacilli 6463-4) isolated in 42 days AFB Smear (test code = No acid fast bacilli 77806-6) seen [facility] Center[facility]URE + SMEAR (NON-SPUTUM)2020-04-29 09:42:00 Test Item Value Reference Range Interpretation Comments CULTURE (BEAKER) (test No acid-fast bacilli code = 1095) isolated in 42 days AFB SMEAR (BEAKER) No acid fast bacilli (test code = 994) seen AFB CULTURE + SMEAR (NON-SPUTUM)2020-04-29 09:42:00 Test Item Value Reference Range Interpretation Comments CULTURE (BEAKER) (test No acid-fast bacilli code = 1095) isolated in 42 days AFB SMEAR (BEAKER) No acid fast bacilli (test code = 994) seen FUNGUS CULTURE + [id number] 00:50:00 Test Item Value Reference Range Interpretation Comments CULTURE (BEAKER) (test No fungus isolated in code = 1095) 28 days FUNGUS SMEAR (BEAKER) No fungi seen (test code = 1406) BASIC METABOLIC [id number] 16:48:00 Test Item Value Reference Range Interpretation Comments SODIUM (test code = NA) 139 mmol/L 134-147 N POTASSIUM (test code = K) 4.5 mmol/L 3.4-5.0 N CHLORIDE (test code = CL) 103 mmol/L 100-108 N CARBON DIOXIDE (test code = CO2) 27 mmol/L 21-32 N ANION GAP (test code = GAP) 9.0 GAP calc 4.0-15.0 N GLUCOSE (test code = GLU) 136 MG/DL 70-110 H BLOOD UREA NITROGEN (test code = 54 MG/DL 7-18 H BUN) GLOMERULAR FILTRATION RATE (test 8 estGFR >60 L code = GFR) CREATININE (test code = CREAT) 7.4 MG/DL 0.8-1.3 H CALCIUM (test code = CA) 8.4 MG/DL 8.5-10.1 L Prepare Leuko-Red [id number] 23:54:00 Test Item Value Reference Range Interpretation Comments CROSSMATCH (test code = 2264) COMPATIBLE Unit ABO (test code = O Pos 3673853) UNIT NUMBER (test code = [id number] 934-0) Status (test code = 4241620) TX_TIMEINCHART Blood Bank Product (test code RED BLOOD CELLS = 2263) PRODUCT CODE (test code = X9195E85 933-2) [facility])2020-03-27 14:01:00 Test Item Value Reference Range Interpretation Comments SARS-COV2/RT-PCR (test Negative Not Detected, Negative, code = 0936151) See external report for linked test SARS-COV-2 PERFORMING LAB [facility] (test code = 8334219) Negative result for this test determines that SARS-CoV-2 RNA was not present in the specimen above the Limit of Detection (LOD). However, Negative results do not preclude SARS-CoV-2 infection and should not be used as the sole basis for treatment or patient management decisions. Negative results mustbe combined with clinical observations, patient history, and epidemiological information. A false negative result may occur if a specimen is improperly collected, transported or handled. A false negative result should be considered if patient's recent exposures or clinical presentation indicate that COVID-19 (SARS-CoV-2) is likely and diagnostic tests for other causes of illness are negative. Re-testing should be considered in cases of suspected false negatives.The limit of detection for this assay is 800 copies/mL.This SARS CoV-2 test is a real-time RT-PCR test intended for the qualitative detection of nucleic acid from SARS-CoV-2 in a nasopharyngeal swab specimen collected from individuals susp ected of COVID-19 by their healthcare provider.This test has not been Food and Drug Administration (FDA) cleared or approved. This is a modified version of an approved Emergency Use Authorization (EUA) and is in the process of review by the FDA. Once authorized by the FDA, the issued EUA will be effective until the declaration that circumstances exist justifying the authorization of the emergency use of in vitro diagnostic tests for detection and/or diagnosis of COVID-19 is terminated under Section 564(b)(2) of the Act or the EUA is revoked under Section 564(g) of the Act.Fact Sheet for Healthcare Providers:https://www.[employer]/sites/default/files/product/documents/Fact_Shee x_JO_Rijtnsecn_Llon_MJIF-CuJ-0.pdfFact Sheet for Healthcare Patients:https://www.[employer]/sites/default/files/product/ documents/Xxjb_Rfgzw_Avmakvpx_Ozbk_SOAO-UxL-8.pdfPerforming Laboratory:[facility], [place] [address]DKRAR CULTURE + GRAM [id number] 09:53:00 Test Item Value Reference Range Interpretation Comments CULTURE (BEAKER) PSEUDOMONAS A 4+ Pseudomo ronda (test code = 1095) AERUGINOSA aeruginos a Amikacin (test code S = 1) Aztreonam (test code R = 32) Cefepime (test code S = 51) Ceftazidime (test S code = 27) Ciprofloxacin (test R code = 7) Gentamicin (test S code = 18) Imipenem (test code R = 19) Levofloxacin (test R code = 22) Meropenem (test code R = 34) Piperacillin (test S code = 24) Piperacillin + S Tazobactam (test code = 29) Tobramycin (test S code = 25) CULTURE (BEAKER) PSEUDOMONAS A 4+ Pseudomo ronda (test code = 1095) AERUGINOSA aeruginos aof a second type Amikacin (test code S = 1) Aztreonam (test code R = 32) Cefepime (test code S = 51) Ceftazidime (test S code = 27) Ciprofloxacin (test R code = 7) Gentamicin (test S code = 18) Imipenem (test code R = 19) Levofloxacin (test R code = 22) Meropenem (test code R = 34) Piperacillin (test S code = 24) Piperacillin + S Tazobactam (test code = 29) Tobramycin (test S code = 25) GRAM STAIN RESULT <1+ WBCs (BEAKER) (test code = 1123) GRAM STAIN RESULT No organisms seen (BEAKER) (test code = 580064) POCT-GLUCOSE [id number] 07:57:00 Test Item Value Reference Range Interpretation Comments POC-GLUCOSE METER 87 mg/dL 70-110 : TESTED A T [facility] 6720 (BEAKER) (test code = [facility] Pick a Student [facility], 1538) [address]: Contract Engineer/Techni estefani ID = [id number] for Alix Jo Hemoglobin and [id number] 06:56:00 Test Item Value Reference Range Interpretation Comments Hemoglobin (test code 8.7 See_Comment L [Auto mated = 786-4) message] The system which generated this result transmit doris reference range : 13.7 - 17.5 GM/ DL. The reference range was not u sed to interpret th is result as normal/abnormal . Hematocrit (test code 28.0 % 40.1-51 L = 4544-3) MITCHELL (test code = MITCHELL) Contract Engineer ID - [id number] Lab Interpretation Abnormal (test code = 82894-7) [facility] CenterHEMOGLOBIN AND [id number] 06:56:00 Test Item Value Reference Range Interpretation Comments HEMOGLOBIN (BEAKER) (test code = 8.7 GM/DL 13.7-17.5 L 410) HEMATOCRIT (BEAKER) (test code = 28.0 % 40.1-51.0 L 411) Contract Engineer ID - [id number]-GLUCOSE [id number] 00:03:00 Test Item Value Reference Range Interpretation Comments POC-GLUCOSE METER 144 mg/dL 70-110 H : TESTED A T [facility] 6720 (BEAKER) (test code = [facility] Pick a Student [facility], 1538) [address]: Contract Engineer/Techni estefani ID = [id number] for CRYSTAL RANGEL POCT-GLUCOSE [id number] 18:10:00 Test Item Value Reference Range Interpretation Comments POC-GLUCOSE METER 117 mg/dL 70-110 H : [facility] 67[facility] (BEAKER) (test code = DASIA Garcia [facility], 1538) [address]: Contract Engineer/Techni estefani ID = [id number] for Avery Levy BASIC METABOLIC [id number] 16:25:00 Test Item Value Reference Range Interpretation Comments SODIUM (BEAKER) 138 meq/L 136-145 (test code = 381) POTASSIUM (BEAKER) 4.3 meq/L 3.5-5.1 (test code = 379) CHLORIDE (BEAKER) 101 meq/L 98-107 (test code = 382) CO2 (BEAKER) (test 28 meq/L 22-29 code = 355) BLOOD UREA NITROGEN 29 mg/dL 7-21 H (BEAKER) (test code = 354) CREATININE (BEAKER) 6.46 mg/dL 0.57-1.25 H (test code = 358) GLUCOSE RANDOM 132 mg/dL 70-105 H (BEAKER) (test code = 652) CALCIUM (BEAKER) 8.1 mg/dL 8.4-10.2 L (test code = 697) EGFR (BEAKER) (test 9 mL/min/1.73 ESTIMAT ED GFR IS code = 1092) sq m NOT ACCURATE CREATININE CLEARANCE IN PREDICTING GLOMERULAR FILTRATION RATE . ESTIMATED GFR I S NOT APPLICABLE FOR DIALYSIS PATIEN TS. Contract Engineer ID Benjie HARDY [id number] 16:08:00 Test Item Value Reference Range Interpretation Comments PHOSPHORUS (BEAKER) (test code = 4.1 mg/dL 2.3-4.7 604) Contract Engineer ID Benjie HARDY FCBC W/PLT COUNT & AUTO [id number] 15:56:00 Test Item Value Reference Range Interpretation Comments WHITE BLOOD CELL COUNT (BEAKER) 7.6 K/ L 3.5-10.5 (test code = 775) RED BLOOD CELL COUNT (BEAKER) 2.59 M/ L 4.63-6.08 L (test code = 761) HEMOGLOBIN (BEAKER) (test code = 6.8 GM/DL 13.7-17.5 L 410) HEMATOCRIT (BEAKER) (test code = 22.3 % 40.1-51.0 L 411) MEAN CORPUSCULAR VOLUME (BEAKER) 86.1 fL 79.0-92.2 (test code = 753) MEAN CORPUSCULAR HEMOGLOBIN 26.3 pg 25.7-32.2 (BEAKER) (test code = 751) MEAN CORPUSCULAR HEMOGLOBIN CONC 30.5 GM/DL 32.3-36.5 L (BEAKER) (test code = 752) RED CELL DISTRIBUTION WIDTH 18.2 % 11.6-14.4 H (BEAKER) (test code = 412) PLATELET COUNT (BEAKER) (test 281 K/CU MM 150-450 code = 756) MEAN PLATELET VOLUME (BEAKER) 9.0 fL 9.4-12.4 L (test code = 754) NUCLEATED RED BLOOD CELLS 0 /100 WBC 0-0 (BEAKER) (test code = 413) NEUTROPHILS RELATIVE PERCENT 71 % (BEAKER) (test code = 429) LYMPHOCYTES RELATIVE PERCENT 11 % (BEAKER) (test code = 430) MONOCYTES RELATIVE PERCENT 6 % (BEAKER) (test code = 431) EOSINOPHILS RELATIVE PERCENT 11 % (BEAKER) (test code = 432) BASOPHILS RELATIVE PERCENT 1 % (BEAKER) (test code = 437) NEUTROPHILS ABSOLUTE COUNT 5.37 K/ L 1.78-5.38 (BEAKER) (test code = 670) LYMPHOCYTES ABSOLUTE COUNT 0.85 K/ L 1.32-3.57 L (BEAKER) (test code = 414) MONOCYTES ABSOLUTE COUNT (BEAKER) 0.43 K/ L 0.30-0.82 (test code = 415) EOSINOPHILS ABSOLUTE COUNT 0.83 K/ L 0.04-0.54 H (BEAKER) (test code = 416) BASOPHILS ABSOLUTE COUNT (BEAKER) 0.09 K/ L 0.01-0.08 H (test code = 417) IMMATURE GRANULOCYTES-RELATIVE 0 % 0-1 PERCENT (BEAKER) (test code = 2801) POCT-GLUCOSE [id number] 11:29:00 Test Item Value Reference Range Interpretation Comments POC-GLUCOSE METER 102 mg/dL 70-110 : TESTED A [place] [facility] 6720 (BEAKER) (test code = [facility], 1538) [address]: Contract Engineer/Techni estefani ID = [id number] for JAD SALGUERO POCT-GLUCOSE [id number] 09:21:00 Test Item Value Reference Range Interpretation Comments POC-GLUCOSE METER 94 mg/dL 70-110 : TESTED A T [facility] 6720 (BEAKER) (test code = [facility], 1538) [address]: Contract Engineer/Techni estefani ID = [id number] for JAD MICHAEL POCT-GLUCOSE [id number] 08:43:00 Test Item Value Reference Range Interpretation Comments POC-GLUCOSE METER 68 mg/dL 70-110 L : TESTED A T [facility] 6720 (BEAKER) (test code = [facility], 1538) [address]: Contract Engineer/Techni estefani ID = [id number] for JAD MICHAEL FUNGUS CULTURE + [id number] 00:31:00 Test Item Value Reference Range Interpretation Comments CULTURE ([facility]) A 1+ Ciarra (test code = 1095) parapsilo sis FUNGUS SMEAR No fungi seen ([facility]) (test code = 1406) POCT-GLUCOSE [id number] 22:45:00 Test Item Value Reference Range Interpretation Comments POC-GLUCOSE METER 100 mg/dL 70-110 : TESTED A T [facility] 6720 (BEAKER) (test code = [facility], 153) [address]: Contract Engineer/Techni estefani ID = [id number] for TEJINDER MORALES POCT-GLUCOSE [id number] 21:50:00 Test Item Value Reference Range Interpretation Comments POC-GLUCOSE METER 121 mg/dL 70-110 H : TESTED A T [facility] 6720 (BEAKER) (test code = [facility], 153) [address]: Contract Engineer/Techni estefani ID = [id number] for Ba omid, Shruthi POCT-GLUCOSE [id number] 17:35:00 Test Item Value Reference Range Interpretation Comments POC-GLUCOSE METER 117 mg/dL 70-110 H : TESTED A T [facility] 6720 (BEAKER) (test code = [facility], 1538) [address]: Contract Engineer/Techni estefani ID = [id number] for AMADA MEDRANO POCT-GLUCOSE [id number] 11:29:00 Test Item Value Reference Range Interpretation Comments POC-GLUCOSE METER 92 mg/dL 70-110 : TESTED A T [facility] 6720 (BEAKER) (test code = [facility], [facility]) [address]: Contract Engineer/Techni estefani ID = [id number] for AMADA DUKES POCT-GLUCOSE [id number] 07:20:00 Test Item Value Reference Range Interpretation Comments POC-GLUCOSE METER 76 mg/dL 70-110 : TESTED A T [facility] 6720 (BEAKER) (test code = [facility], [facility]8) 609[address]: Contract Engineer/Techni estefani ID = [id number] for AMADA DUKES POCT-GLUCOSE [id number] 21:24:00 Test Item Value Reference Range Interpretation Comments POC-GLUCOSE METER 199 mg/dL 70-110 H : TESTED A T [facility] 6720 (BEAKER) (test code = [facility], [facility]8) 28[address]: Contract Engineer/Techni estefani ID = [id number] for TEJINDER MORALES POCT-GLUCOSE [id number] 18:07:00 Test Item Value Reference Range Interpretation Comments POC-GLUCOSE METER 135 mg/dL 70-110 H : TESTED A T [facility] 6720 (BEAKER) (test code = [facility], [facility]8) 91984: Contract Engineer/Techni estefani ID = [id number] for AMADA MEDRANO CBC W/PLT COUNT & AUTO [id number] 15:25:00 Test Item Value Reference Range Interpretation Comments WHITE BLOOD CELL COUNT (BEAKER) 10.0 K/ L 3.5-10.5 (test code = 775) RED BLOOD CELL COUNT (BEAKER) 2.72 M/ L 4.63-6.08 L (test code = 761) HEMOGLOBIN (BEAKER) (test code = 7.2 GM/DL 13.7-17.5 L 410) HEMATOCRIT (BEAKER) (test code = 23.0 % 40.1-51.0 L 411) MEAN CORPUSCULAR VOLUME (BEAKER) 84.6 fL 79.0-92.2 (test code = 753) MEAN CORPUSCULAR HEMOGLOBIN 26.5 pg 25.7-32.2 (BEAKER) (test code = 751) MEAN CORPUSCULAR HEMOGLOBIN CONC 31.3 GM/DL 32.3-36.5 L (BEAKER) (test code = 752) RED CELL DISTRIBUTION WIDTH 18.2 % 11.6-14.4 H (BEAKER) (test code = 412) PLATELET COUNT (BEAKER) (test 311 K/CU MM 150-450 code = 756) MEAN PLATELET VOLUME (BEAKER) 9.5 fL 9.4-12.4 (test code = 754) NUCLEATED RED BLOOD CELLS 0 /100 WBC 0-0 (BEAKER) (test code = 413) NEUTROPHILS RELATIVE PERCENT 73 % (BEAKER) (test code = 429) LYMPHOCYTES RELATIVE PERCENT 10 % (BEAKER) (test code = 430) MONOCYTES RELATIVE PERCENT 7 % (BEAKER) (test code = 431) EOSINOPHILS RELATIVE PERCENT 8 % (BEAKER) (test code = 432) BASOPHILS RELATIVE PERCENT 1 % (BEAKER) (test code = 437) NEUTROPHILS ABSOLUTE COUNT 7.30 K/ L 1.78-5.38 H (BEAKER) (test code = 670) LYMPHOCYTES ABSOLUTE COUNT 1.00 K/ L 1.32-3.57 L (BEAKER) (test code = 414) MONOCYTES ABSOLUTE COUNT (BEAKER) 0.69 K/ L 0.30-0.82 (test code = 415) EOSINOPHILS ABSOLUTE COUNT 0.84 K/ L 0.04-0.54 H (BEAKER) (test code = 416) BASOPHILS ABSOLUTE COUNT (BEAKER) 0.11 K/ L 0.01-0.08 H (test code = 417) IMMATURE GRANULOCYTES-RELATIVE 0 % 0-1 PERCENT (BEAKER) (test code = 2801) POCT-GLUCOSE [id number] 11:52:00 Test Item Value Reference Range Interpretation Comments POC-GLUCOSE METER 91 mg/dL 70-110 : TESTED A T [facility] 6720 (BEAKER) ([facility] = [facility] 153) 11919: Contract Engineer/Techni estefani ID = [id number] for AMADA DUKES POCT-GLUCOSE [id number] 07:39:00 Test Item Value Reference Range Interpretation Comments POC-GLUCOSE METER 92 mg/dL 70-110 : TESTED A T [facility] 6720 (BEAKER) (test [facility] = [facility] 15[facility] 32772: Contract Engineer/Techni estefani ID = [id number] for AMADA DUKES BASIC METABOLIC [id number] 07:22:00 Test Item Value Reference Range Interpretation Comments SODIUM (BEAKER) 137 meq/L 136-145 (test code = 381) POTASSIUM (BEAKER) 4.9 meq/L 3.5-5.1 (test code = 379) CHLORIDE (BEAKER) 103 meq/L 98-107 (test code = 382) CO2 (BEAKER) (test 25 meq/L 22-29 code = 355) BLOOD UREA NITROGEN 40 mg/dL 7-21 H (BEAKER) (test code = 354) CREATININE (BEAKER) 9.00 mg/dL 0.57-1.25 H (test code = 358) GLUCOSE RANDOM 101 mg/dL 70-105 (BEAKER) (test code = 652) CALCIUM (BEAKER) 8.2 mg/dL 8.4-10.2 L (test code = 697) EGFR (BEAKER) (test 6 mL/min/1.73 ESTIMAT ED GFR IS code = 1092) sq m NOT ACCURATE CREATININE CLEARANCE IN PREDICTING GLOMERULAR FILTRATION RATE . ESTIMATED GFR I S NOT APPLICABLE FOR DIALYSIS PATIEN TS. Contract Engineer ID - PIAYA LPOCT-GLUCOSE [id number] 21:35:00 Test Item Value Reference Range Interpretation Comments POC-GLUCOSE METER 115 mg/dL 70-110 H : TESTED A T [facility] 6720 (BEAKER) (test code = [facility], 153) 32705: Contract Engineer/Techni estefani ID = [id number] for CRYSTAL RANGEL POCT-GLUCOSE [id number] 17:07:00 Test Item Value Reference Range Interpretation Comments POC-GLUCOSE METER 124 mg/dL 70-110 H : TESTED A T [facility] 6720 (BEAKER) (test code = [facility], 1538) 23921: Contract Engineer/Techni estefani ID = [id number] for Alix Guerra POCT-GLUCOSE [id number] 12:54:00 Test Item Value Reference Range Interpretation Comments POC-GLUCOSE METER 96 mg/dL 70-110 : TESTED A T [facility] 6720 (BEAKER) (test code = [facility], 153) 88954: Contract Engineer/Techni estefani ID = [id number] for COLLINS SIFUENTES POCT-GLUCOSE [id number] 08:06:00 Test Item Value Reference Range Interpretation Comments POC-GLUCOSE METER 83 mg/dL 70-110 : TESTED A T [facility] 6720 (BEAKER) (test code = [facility], 1538) 16905: Contract Engineer/Techni estefani ID = [id number] for COLLINS SIFUENTES BASIC METABOLIC [id number] 07:36:00 Test Item Value Reference Range Interpretation Comments SODIUM (BEAKER) 139 meq/L 136-145 (test code = 381) POTASSIUM (BEAKER) 4.7 meq/L 3.5-5.1 (test code = 379) CHLORIDE (BEAKER) 102 meq/L 98-107 (test code = 382) CO2 (BEAKER) (test 27 meq/L 22-29 code = 355) BLOOD UREA NITROGEN 34 mg/dL 7-21 H (BEAKER) (test code = 354) CREATININE (BEAKER) 7.49 mg/dL 0.57-1.25 H (test code = 358) GLUCOSE RANDOM 84 mg/dL 70-105 (BEAKER) (test code = 652) CALCIUM (BEAKER) 7.9 mg/dL 8.4-10.2 L (test code = 697) EGFR (BEAKER) (test 7 mL/min/1.73 ESTIMAT ED GFR IS code = 1092) sq m NOT ACCURATE CREATININE CLEARANCE IN PREDICTING GLOMERULAR FILTRATION RATE . ESTIMATED GFR I S NOT APPLICABLE FOR DIALYSIS PATIEN TS. Contract Engineer ID - PIAYA LPOCT-GLUCOSE [id number] 21:38:00 Test Item Value Reference Range Interpretation Comments POC-GLUCOSE METER 130 mg/dL 70-110 H : TESTED A T [facility] 6720 (BEAKER) (test code = [facility], 1538) 35916: Contract Engineer/Techni estefani ID = [id number] for SA CRYSTAL HIGGINS POCT-GLUCOSE [id number] 16:28:00 Test Item Value Reference Range Interpretation Comments POC-GLUCOSE METER 127 mg/dL 70-110 H : TESTED A T [facility] 6720 (BEAKER) (test code = [facility], 1538) 03465: Contract Engineer/Techni estefani ID = [id number] for JAD SALGUERO POCT-GLUCOSE [id number] 11:41:00 Test Item Value Reference Range Interpretation Comments POC-GLUCOSE METER 143 mg/dL 70-110 H : TESTED A T [facility] 6720 (BEAKER) (test code = [facility], 1538) 15812: Contract Engineer/Techni estefani ID = [id number] for JAD SALGUERO POCT-GLUCOSE [id number] 08:03:00 Test Item Value Reference Range Interpretation Comments POC-GLUCOSE METER 86 mg/dL 70-110 : TESTED A T [facility] 6720 (BEAKER) (test code = [facility], 1538) 94149: Contract Engineer/Techni estefani ID = [id number] for JAD MICHAEL BASIC METABOLIC [id number] 07:41:00 Test Item Value Reference Range Interpretation Comments SODIUM (BEAKER) 137 meq/L 136-145 (test code = 381) POTASSIUM (BEAKER) 4.8 meq/L 3.5-5.1 Specimen slightly (test code = 379) hemolyzed CHLORIDE (BEAKER) 100 meq/L 98-107 (test code = 382) CO2 (BEAKER) (test 26 meq/L 22-29 code = 355) BLOOD UREA NITROGEN 28 mg/dL 7-21 H (BEAKER) (test code = 354) CREATININE (BEAKER) 6.13 mg/dL 0.57-1.25 H Specimen slightly (test code = 358) hemolyzed GLUCOSE RANDOM 94 mg/dL 70-105 (BEAKER) (test code = 652) CALCIUM (BEAKER) 8.4 mg/dL 8.4-10.2 (test code = 697) EGFR (BEAKER) (test 9 mL/min/1.73 ESTIMAT ED GFR IS code = 1092) sq m NOT ACCURATE CREATININE CLEARANCE IN PREDICTING GLOMERULAR FILTRATION RATE . ESTIMATED GFR I S NOT APPLICABLE FOR DIALYSIS PATIEN TS. Contract Engineer ID - JAQUELINE MCBC W/PLT COUNT & AUTO [id number] 07:15:00 Test Item Value Reference Range Interpretation Comments WHITE BLOOD CELL COUNT (BEAKER) 7.4 K/ L 3.5-10.5 (test code = 775) RED BLOOD CELL COUNT (BEAKER) 2.70 M/ L 4.63-6.08 L (test code = 761) HEMOGLOBIN (BEAKER) (test code = 7.2 GM/DL 13.7-17.5 L 410) HEMATOCRIT (BEAKER) (test code = 23.6 % 40.1-51.0 L 411) MEAN CORPUSCULAR VOLUME (BEAKER) 87.4 fL 79.0-92.2 (test code = 753) MEAN CORPUSCULAR HEMOGLOBIN 26.7 pg 25.7-32.2 (BEAKER) (test code = 751) MEAN CORPUSCULAR HEMOGLOBIN CONC 30.5 GM/DL 32.3-36.5 L (BEAKER) (test code = 752) RED CELL DISTRIBUTION WIDTH 18.5 % 11.6-14.4 H (BEAKER) (test code = 412) PLATELET COUNT (BEAKER) (test 281 K/CU MM 150-450 code = 756) MEAN PLATELET VOLUME (BEAKER) 10.9 fL 9.4-12.4 (test code = 754) NUCLEATED RED BLOOD CELLS 0 /100 WBC 0-0 (BEAKER) (test code = 413) NEUTROPHILS RELATIVE PERCENT 59 % (BEAKER) (test code = 429) LYMPHOCYTES RELATIVE PERCENT 22 % (BEAKER) (test code = 430) MONOCYTES RELATIVE PERCENT 8 % (BEAKER) (test code = 431) EOSINOPHILS RELATIVE PERCENT 10 % (BEAKER) (test code = 432) BASOPHILS RELATIVE PERCENT 1 % (BEAKER) (test code = 437) NEUTROPHILS ABSOLUTE COUNT 4.37 K/ L 1.78-5.38 (BEAKER) (test code = 670) LYMPHOCYTES ABSOLUTE COUNT 1.63 K/ L 1.32-3.57 (BEAKER) (test code = 414) MONOCYTES ABSOLUTE COUNT (BEAKER) 0.57 K/ L 0.30-0.82 (test code = 415) EOSINOPHILS ABSOLUTE COUNT 0.75 K/ L 0.04-0.54 H (BEAKER) (test code = 416) BASOPHILS ABSOLUTE COUNT (BEAKER) 0.08 K/ L 0.01-0.08 (test code = 417) IMMATURE GRANULOCYTES-RELATIVE 0 % 0-1 PERCENT (BEAKER) (test code = 2801) POCT-GLUCOSE [id number] 21:13:00 Test Item Value Reference Range Interpretation Comments POC-GLUCOSE METER 146 mg/dL 70-110 H : TESTED A T [facility] 6720 (BEAKER) (test code = [facility], 1538) 33753: Contract Engineer/Techni estefani ID = [id number] for CRYSTAL RANGEL POCT-GLUCOSE [id number] 17:37:00 Test Item Value Reference Range Interpretation Comments POC-GLUCOSE METER 140 mg/dL 70-110 H : TESTED A T [facility] 6720 (BEAKER) (test code = [facility], [facility]8) 95751: Contract Engineer/Techni estefani ID = [id number] for JAD SALGUERO POCT-GLUCOSE [id number] 13:12:00 Test Item Value Reference Range Interpretation Comments POC-GLUCOSE METER 78 mg/dL 70-110 : TESTED A T [facility] 6720 (BEAKER) (test code = [facility], 1538) 11512: Contract Engineer/Techni estefani ID = [id number] for JAD MICHAEL POCT-GLUCOSE [id number] 07:32:00 Test Item Value Reference Range Interpretation Comments POC-GLUCOSE METER 77 mg/dL 70-110 : TESTED A T [facility] 6720 (BEAKER) (test code = [facility], 1538) 27794: Contract Engineer/Techni estefani ID = [id number] for JAD MICHAEL BASIC METABOLIC [id number] 07:14:00 Test Item Value Reference Range Interpretation Comments SODIUM (BEAKER) 137 meq/L 136-145 (test code = 381) POTASSIUM (BEAKER) 5.1 meq/L 3.5-5.1 (test code = 379) CHLORIDE (BEAKER) 100 meq/L 98-107 (test code = 382) CO2 (BEAKER) (test 27 meq/L 22-29 code = 355) BLOOD UREA NITROGEN 36 mg/dL 7-21 H (BEAKER) (test code = 354) CREATININE (BEAKER) 8.07 mg/dL 0.57-1.25 H (test code = 358) GLUCOSE RANDOM 79 mg/dL 70-105 (BEAKER) (test code = 652) CALCIUM (BEAKER) 8.5 mg/dL 8.4-10.2 (test code = 697) EGFR (BEAKER) (test 7 mL/min/1.73 ESTIMAT ED GFR IS code = 1092) sq m NOT ACCURATE CREATININE CLEARANCE IN PREDICTING GLOMERULAR FILTRATION RATE . ESTIMATED GFR I S NOT APPLICABLE FOR DIALYSIS PATIEN TS. Contract Engineer ID - [id number] 07:04:00 Test Item Value Reference Range Interpretation Comments PHOSPHORUS (BEAKER) (test code = 5.2 mg/dL 2.3-4.7 H 604) Contract Engineer ID - ADMINPOCT-GLUCOSE [id number] 21:39:00 Test Item Value Reference Range Interpretation Comments POC-GLUCOSE METER 148 mg/dL 70-110 H : TESTED A T [facility] 6720 (BEAKER) (test code = [facility], 1538) 28238: Contract Engineer/Techni estefani ID = [id number] for TEJINDER MORALES POCT-GLUCOSE [id number] 17:38:00 Test Item Value Reference Range Interpretation Comments POC-GLUCOSE METER 114 mg/dL 70-110 H : TESTED A T [facility] 6720 (BEAKER) (test code = [facility], 1538) 58849: Contract Engineer/Techni estefani ID = [id number] for NATASHA GALAVIZ, AMADA POCT-GLUCOSE [id number] 16:11:00 Test Item Value Reference Range Interpretation Comments POC-GLUCOSE METER 93 mg/dL 70-110 : TESTED A T [facility] 6720 (BEAKER) (test code = [facility], 1538) 93995: Contract Engineer/Techni estefain ID = [id number] for CHARITY DIMAS, AMADA POCT-GLUCOSE [id number] 14:27:00 Test Item Value Reference Range Interpretation Comments POC-GLUCOSE METER 98 mg/dL 70-110 : TESTED A T [facility] 6720 (BEAKER) (test code = [facility], 1538) 33980: Contract Engineer/Techni estefani ID = [id number] for JOYSteve OR, TEIKA POCT-GLUCOSE [id number] 07:48:00 Test Item Value Reference Range Interpretation Comments POC-GLUCOSE METER 101 mg/dL 70-110 : TESTED A T [facility] 6720 (BEAKER) (test code = [facility], 1538) 53525: Contract Engineer/Techni estefani ID = [id number] for FAUZIA URMILA, AYLA POCT-GLUCOSE [id number] 07:24:00 Test Item Value Reference Range Interpretation Comments POC-GLUCOSE METER 101 mg/dL 70-110 : TESTED Vikas Velásquez [facility] 6720 (NOE) (test code = [facility] [place], 1538) 16417: Contract Engineer/Techni estefani ID = [id number] for AMADA MEDRANO SARS-COV2/RT-PCR ([facility])2020-03-20 07:17:00 Test Item Value Reference Range Interpretation Comments SARS-COV2/RT-PCR (test Negative Not Detected, Negative, code = 1925540) See external report for linked test SARS-COV-2 PERFORMING LAB [facility] KEELY (test code = 6493227) Negative result for this test determines that SARS-CoV-2 RNA was not present in the specimen above the Limit of Detection (LOD). However, Negative results do not preclude SARS-CoV-2 infection and should not be used as the sole basis for treatment or patient management decisions. Negative results mustbe combined with clinical observations, patient history, and epidemiological information. A false negative result may occur if a specimen is improperly collected, transported or handled. A false negative result should be considered if patient's recent exposures or clinical presentation indicate that COVID-19 (SARS-CoV-2) is likely and diagnostic tests for other causes of illness are negative. Re-testing should be considered in cases of suspected false negatives.The limit of detection for this assay is 100 copies/mL.This SARS CoV-2 test is a real-time RT-PCR test intended for the qualitative detection of nucleic acid from SARS-CoV-2 in a nasopharyngeal swab specimen collected from individuals susp ected of COVID-19 by their healthcare provider.This test has not been Food and Drug Administration (FDA) cleared or approved. This is a modified version of an approved Emergency Use Authorization (EUA) and is in the process of review by the FDA. Once authorized by the FDA, the issued EUA will be effective until the declaration that circumstances exist justifying the authorization of the emergency use of in vitro diagnostic tests for detection and/or diagnosis of COVID-19 is terminated under Section 564(b)(2) of the Act or the EUA is revoked under Section 564(g) of the Act.Testing was performed using the Giles SARS-CoV-2 assay.Fact Sheet for Healthcare Providers:https://www.molecular.giles/ari/ SY_ZBWN-GuI-0_CLW_Byqw_Maser_22-757685.pdfFact Sheet for Healthcare Patients:https://www.[employer].ab radha/ari/CY_ZJMO-OhS-1_Pupjkmx_Qwet_Zwwey_MV_14-537210B9.pdfPerforming Laboratory:[facility] [address] [place] [address] POCT-GLUCOSE [id number] 21:54:00 Test Item Value Reference Range Interpretation Comments POC-GLUCOSE METER 155 mg/dL 70-110 H : TESTED A T [facility] 6720 (BEAKER) (test code = [facility], 1538) 39645: Contract Engineer/Techni estefani ID = [id number] for TEJINDER MORALES ANAEROBIC [id number] 19:28:00 Test Item Value Reference Range Interpretation Comments CULTURE (BEAKER) (test No anaerobes isolated code = 1095) ANAEROBIC [id number] 19:23:00 Test Item Value Reference Range Interpretation Comments CULTURE (BEAKER) (test No anaerobes isolated code = 1095) POCT-GLUCOSE [id number] 17:26:00 Test Item Value Reference Range Interpretation Comments POC-GLUCOSE METER 128 mg/dL 70-110 H : TESTED A T [facility] 6720 (BEAKER) (test code = [facility] Jose [facility], 1538) 33933: Contract Engineer/Techni estefani ID = [id number] for AMADA MEDRANO POCT-GLUCOSE [id number] 12:04:00 Test Item Value Reference Range Interpretation Comments POC-GLUCOSE METER 93 mg/dL 70-110 : TESTED A T [facility] 6720 (BEAKER) (test code = [facility] Jose [facility], 1538) 65512: Contract Engineer/Techni estefani ID = [id number] for AMADA DUKES HEMODIALYSIS [id number] 11:00:00Justin Faith RN 03/19/2020 11:46 AMProcedure tolerated well. Vital signs stable.HD duration 3 hours UF 3 L via left upper arm AV Fistula. Lab Results Component Value Date WBC 10.8 (H) 03/18/2020 HGB 7.5 (L) 03/18/2020 HCT 24.5 (L) 03/18/2020 MCV 85.1 03/18/2020 PLT 313 03/18/2020 Lab Results Component Value Date GLUCOSE 102 03/19/2020 CALCIUM 8.1 (L) 03/19/2020 NA 138 03/19/2020 K 4.2 03/19/2020 CO2 23 03/19/2020 CL 102 03/19/2020 BUN 50 (H) 03/19/2020 CREATININE 8.35 (H) 03/19 No components found for: HEPSAG Vitals: 03/19/20 1100 BP: 156/73 Pulse: 67 Resp: 19 Temp: SpO2: 100%[facility] METABOLIC PANEL 2020-03-19 09:28:00 Test Item Value Reference Range Interpretation Comments SODIUM (BEAKER) 138 meq/L 136-145 (test code = 381) POTASSIUM (BEAKER) 4.2 meq/L 3.5-5.1 (test code = 379) CHLORIDE (BEAKER) 102 meq/L 98-107 (test code = 382) CO2 (BEAKER) (test 23 meq/L 22-29 code = 355) BLOOD UREA NITROGEN 50 mg/dL 7-21 H (BEAKER) (test code = 354) CREATININE (BEAKER) 8.35 mg/dL 0.57-1.25 H (test code = 358) GLUCOSE RANDOM 102 mg/dL 70-105 (BEAKER) (test code = 652) CALCIUM (BEAKER) 8.1 mg/dL 8.4-10.2 L (test code = 697) EGFR (BEAKER) (test 7 mL/min/1.73 ESTIMAT ED GFR IS code = 1092) sq m NOT ACCURATE CREATININE CLEARANCE IN PREDICTING GLOMERULAR FILTRATION RATE . ESTIMATED GFR I S NOT APPLICABLE FOR DIALYSIS PATIEN TS. Contract Engineer ID - PIAYA LPOCT-GLUCOSE [id number] 21:30:00 Test Item Value Reference Range Interpretation Comments POC-GLUCOSE METER 133 mg/dL 70-110 H : [facility] ([place]ER[place] (test code = [facility] [place], 1538) 45573: Contract Engineer/Techni estefani ID = [id number] for CRYSTAL RANGEL POCT-GLUCOSE [id number] 19:29:00 Test Item Value Reference Range Interpretation Comments POC-GLUCOSE METER 191 mg/dL 70-110 H : TESTED A T [facility] 6720 (BEAKER) (test code = [facility], 1538) 87214: Contract Engineer/Techni estefani ID = [id number] for MARIFER WEEKS POCT-GLUCOSE [id number] 11:31:00 Test Item Value Reference Range Interpretation Comments POC-GLUCOSE METER 119 mg/dL 70-110 H : TESTED A T [facility] 6720 (BEAKER) (test code = [facility], 1538) 16529: Contract Engineer/Techni estefani ID = [id number] for JAD SALGUERO POCT-GLUCOSE [id number] 07:32:00 Test Item Value Reference Range Interpretation Comments POC-GLUCOSE METER 115 mg/dL 70-110 H : TESTED A T [facility] 6720 (BEAKER) (test code = [facility], 1538) 00544: Contract Engineer/Techni estefani ID = [id number] for JAD SALGUERO BASIC METABOLIC [id number] 06:39:00 Test Item Value Reference Range Interpretation Comments SODIUM (BEAKER) 137 meq/L 136-145 (test code = 381) POTASSIUM (BEAKER) 4.5 meq/L 3.5-5.1 (test code = 379) CHLORIDE (BEAKER) 100 meq/L 98-107 (test code = 382) CO2 (BEAKER) (test 25 meq/L 22-29 code = 355) BLOOD UREA NITROGEN 34 mg/dL 7-21 H (BEAKER) (test code = 354) CREATININE (BEAKER) 6.68 mg/dL 0.57-1.25 H (test code = 358) GLUCOSE RANDOM 128 mg/dL 70-105 H (BEAKER) (test code = 652) CALCIUM (BEAKER) 8.2 mg/dL 8.4-10.2 L (test code = 697) EGFR (BEAKER) (test 9 mL/min/1.73 ESTIMAT ED GFR IS code = 1092) sq m NOT ACCURATE CREATININE CLEARANCE IN PREDICTING GLOMERULAR FILTRATION RATE . ESTIMATED GFR I S NOT APPLICABLE FOR DIALYSIS PATIEN TS. Contract Engineer ID - DANITZA LCBC W/PLT COUNT & AUTO [id number] 06:01:00 Test Item Value Reference Range Interpretation Comments WHITE BLOOD CELL COUNT (BEAKER) 10.8 K/ L 3.5-10.5 H (test code = 775) RED BLOOD CELL COUNT (BEAKER) 2.88 M/ L 4.63-6.08 L (test code = 761) HEMOGLOBIN (BEAKER) (test code = 7.5 GM/DL 13.7-17.5 L 410) HEMATOCRIT (BEAKER) (test code = 24.5 % 40.1-51.0 L 411) MEAN CORPUSCULAR VOLUME (BEAKER) 85.1 fL 79.0-92.2 (test code = 753) MEAN CORPUSCULAR HEMOGLOBIN 26.0 pg 25.7-32.2 (BEAKER) (test code = 751) MEAN CORPUSCULAR HEMOGLOBIN CONC 30.6 GM/DL 32.3-36.5 L (BEAKER) (test code = 752) RED CELL DISTRIBUTION WIDTH 18.8 % 11.6-14.4 H (BEAKER) (test code = 412) PLATELET COUNT (BEAKER) (test 313 K/CU MM 150-450 code = 756) MEAN PLATELET VOLUME (BEAKER) 9.7 fL 9.4-12.4 (test code = 754) NUCLEATED RED BLOOD CELLS 0 /100 WBC 0-0 (BEAKER) (test code = 413) NEUTROPHILS RELATIVE PERCENT 77 % (BEAKER) (test code = 429) LYMPHOCYTES RELATIVE PERCENT 9 % (BEAKER) (test code = 430) MONOCYTES RELATIVE PERCENT 7 % (BEAKER) (test code = 431) EOSINOPHILS RELATIVE PERCENT 6 % (BEAKER) (test code = 432) BASOPHILS RELATIVE PERCENT 1 % (BEAKER) (test code = 437) NEUTROPHILS ABSOLUTE COUNT 8.29 K/ L 1.78-5.38 H (BEAKER) (test code = 670) LYMPHOCYTES ABSOLUTE COUNT 0.95 K/ L 1.32-3.57 L (BEAKER) (test code = 414) MONOCYTES ABSOLUTE COUNT (BEAKER) 0.73 K/ L 0.30-0.82 (test code = 415) EOSINOPHILS ABSOLUTE COUNT 0.67 K/ L 0.04-0.54 H (BEAKER) (test code = 416) BASOPHILS ABSOLUTE COUNT (BEAKER) 0.11 K/ L 0.01-0.08 H (test code = 417) IMMATURE GRANULOCYTES-RELATIVE 1 % 0-1 PERCENT (BEAKER) (test code = 2801) POCT-GLUCOSE [id number] 21:16:00 Test Item Value Reference Range Interpretation Comments POC-GLUCOSE METER 145 mg/dL 70-110 H : TESTED A T [facility] 6720 (BEAKER) (test code = [facility] [place], 1538) 51218: Contract Engineer/Techni estefani ID = [id number] for CRYSTAL RANGEL Tissue [id number] 19:02:00 Test Item Value Reference Range Interpretation Comments Case Report (test code Surgical Pathology = 104) Report Case: [id number] Authorizing Provider: [employer] DPM Collected: 03/13/2020 12:32 PM Ordering Location: [facility] Received: 03/13/2020 02:59 PM PERIOPERATIVE SERVICES Pathologist: Vandana Beverly MD Specimen: Metatarsal, Right, base of the first metatarsal bone DIAGNOSIS (test code = [id number] 3220) uZzEwMzNcZnRuYmpcdWMxIH tccnRmMVxlcGljOTIwMFxhb sIkBKWkcJBsI4NsjcgaHTma MP9tRG2ziYivnQJjfLAaAQG cOgMuj2clj894iTOnh2ibTM DMpimehKu3qUspX21wf6V3C jpfP16svWAxFCuaeSAtevvq kgIjCQNDW1cNLGSCA3ZlLRG FL6PbL1RqNPRUZB2QNAUSEC ANWAzzNW7ELn2WXMHXKV9IF NpJAX1YYWBUAIVUPSPZEKXX VDpccGFyICAtIEdBTkdSRU5 BVWIlAhHIOk0NNQMhDT4AD3 fQCS8CRJUJNL1wWA9EMARGC mEYAUOLPX5VDtHYODCCPFXu qRTgQXZkGCTZX1HGOXVLW3W TE11ZXBaQNXcWONXXOOSBSq VccGFyICBccGFyfXtccnRmM Vnju5NjLQcgIGUuBE9ifTxy JSQiNX5kUSUoY7rugZ5pecq 9ZmWsKIRfSaD0JEFpjrL4Lf r4CJSdZLvfm0xky7DvAFNeX Lt7gHvoAfVyPDJbw4btceDi KuSlYTSjFQYjAEJtkQOeZ85 1y0uuj4focfOcaSI6HMDvTO U7BEfccoOphdA1BJihkVGxE oA8XSuywiSdJVfqtlRbtiXs Hkd2XSUfA645UDA7uZjtt0n dKIZ8YLRuPUDzNrXsOa2mpK JzK775LMQcVYXRYXIxkCm4D WWxcrLjarSppKXDi908D127 h2qwAZHyknXomIiJitygt2b lB169YCKikIRnbwBzTbPkVJ UliBSqpKN1QGVmZY2dtdepK IfhMXytYOVtmkT7CQGluDZy V3ZgPWZfSM4ergcoEZC1SGf zUWVgORX5KuYqSHUpo4Rrml v0EyJsvp1ais90XQY2l8Xxa YzvFZE7TSC4AgFiWk2sePNn DDBbRQ5qYhNazLJzCDXncb5 2gHhsPFvfSUK6ZULbadHcd1 Mhj5yoLkOhshHsB8nhV7JwC GUdSXPbFGGwSuClclUdq7Hn z6RqpZNpqEw4h6mbEZKnYUD ygOlvy3cqRJV2UNRgoMVfW9 dfqK1bAOUjTL6mwyggl4saF DfmGApkSZNkfZH8naX1SCYe yXBaY6OjqC0cQCCfLNhlZZX gcax1TqRiZe6dpYVbyDtaEO xzYmtwYWdlXHBnbmNvbnRcc GduZGVjXHBsYWluXHBsYWlu XGYwXGZzMjRccWxcbGFuZzE wMzNcaGljaFxmMVxkYmNoXG RuMGcuU3vvXaRaAeQuIfe7C ZIyvOKiDFCuFto3CYEtoKQj WEWYlFuxyK6zBLVpbGvqyR7 iqSJ9HADenyXsmSRZcS5cWB IQkC0vBfV4GcLeRqJ9WTP2X jlccGFyfX0= CPT Code(s) (test code w8jlfIIiGPGfsDS5HiZpFIN = 3357) oz2eir9IdhVNpsJQjYVdgiJ ToggSzvk34tMV5wW93FV5qC LYvTdO1TEIvngR4Btp8XIXh OTAuyZZsO817b9huu3oyxuD ghKD8cRqqQLWqKDZyZXvyXS LnUqGyDMafHOL3VQM3EWNwE VxwYXJ9 CLINICAL HISTORY (test c4sbhFDuFLVpiTV1IyOdJFU code = 3356) sw9eca3KhoPAjsVCkQOzsoL CaboPmrb08gCG4gG89EY1mR JAlIgS5IOPeeqM8Spa7MHMk MAAyhBDkQ194r8uzg6vybrP cqFQ6qMscKNQuLHOsFKhkRK BcTdDpPn5lGIkiOQitkugvi 3UtR6zcFCjdu685dtVaFERq cXVlbGEgXHBhcn0= SPECIMEN SOURCE (test x6vpxBUrWVKcpLL4KuWbXVC code = 3377) zn7xog0FmcIWliQJpFOxjzM BkldOmbn84gPC2tM88BV6nW KMlVfG3KWAoxmD8Pgd7HOJn DEUnbEUpX408b9rzb1tpkrB unTR0rTpgBVQhFPBzNHazAW IwGkMeCBL0OFAvqvAysGfri mlnaHRccGFyfQ== GROSS DESCRIPTION f1ftuAVoIIJpzNUxTlDmBPM (test code = 3366) pWNEdk0buZSUcvGKpXzYiJh NcZnRuYmpcdWMxXGRlZmYwe 3cjc245wNIis4ecOIKuAwA7 qNCbQSRkxYUrY711u5jwc7b qiyTgpEL7QHNdMCA1GNbecd IxbyR5XFuflLYmOlT7MRqcn hVvIUmpttFinnFyRxs3EGBk P925ZPT5bPbba0yvRLM0KUM gNYPtJsPjQq6ghXYpX660XC MnUPABRGJxePk9MOMdmiFot sSbhLBCc510O773p4dlNNSj euZsaMdYvtfkp8ueB567MNA hcGVydzEyMjQwXHBhcGVyaD A6EHKrWE7joahoUsKdNP6na gvrOvPvAN7owam6NwTnBP2a cmdiNzIwXGhlYWRlcnkwXGZ hl5KdsdfmEO5zN9Kwx4F4dH 9maXRcZGVmdGFiNzIwXGZvc c1teARmKOpei4RtKAH3xgS4 gFIljHUnPQCtVQ10Iilwq0P eWqlzAJR2MLScwzZuo5Mug0 vmTdKfbuLwU6arF0BdIROyP MScYALbMeUsaeSdk3Fer2Gq pIOvhJq7l3niCAViRMQblLl ll0suTWQ5SSChD9K4dZHvl0 frGPluKZCduCE5cqcuLLgnP JGkozL8jzudKAmwXSYwfXG6 wswqZJuhEAPpQtX2ijsyKCj kPWLwITK4CApgo991RUY2NZ xzYmtwYWdlXHBnbmNvbnRcc GduZGVjXHBsYWluXHBsYWlu XGYwXGZzMjRccWxccGxhaW5 zPwEaSbNnQVdxHD9fIRGpV5 tiwZZiAGDzVXAgB3osXbWzu N9mfRdkPSqsffAuSHIdJ2Ez znYvRQnwKRJenu7caXhgXZj hYmVsZWQgdGhlIHBhdGllbn NculKrXS7aERLpS1Eir9Fhx 24gbnVtYmVyIGFuZCAiYmFz BAFtGnD3hGCoHbrix7HemVK 3JZEtamViiAGjb99kEsCgyx BoHFXsOOK7BSDvUOT8TBLyD ZEdtXQaT4gmAHiyrMYcq8Cw dGFuLXllbGxvdywgdHJhYmV jdWxhdGVkIGJvbmUgZnJhZ2 8kkeSnSWVnBOOwZIQlKLA6P XGrLTO0QYAnXtUbqJTsi6P6 eV7lGY0aWYcnPZIpRQFwOLP hSPApUZHii0UdVeLvAMSwCQ 3vQWReJmUalRsyy5AxSrDoI HVlIHRvIHRoZSBmcmFnbWVu xULaQD4ewVIuDIMhAzX4aPT sc3MuP7rzHB6zQIPeBHBpPX CzaO6zQ2Qyuy56WWEzQSDez 1Jty7JkWaGvXQszAGTffHih dWxhciBzdXJmYWNlIGlzIHR mzi2wvzE8FWRxLCXcCKF8qU ZdnBlkFxjsF4bvcwVvKhAzT 2VjdGlvbmluZyByZXZlYWxz IGEgdGFuLXllbGxvdywgZml ybSwgdHJhYmVjdWxhdGVkIG P8uOOnfVLnBZSpFwGwRuVwc kRhRK54RSFdohHrz4GfmEew ttJnJVOlXCL2Nv6koITeQSQ squPon8oad6ymKifcEVEytU SuFMAeD7Qcr58fJ18lZTymM DHpMNBgk9euepBblqTjc55z rSC9cQApsRCgrEBcIQDcKLU hXCWzueGjLm5gzI55vI4zPZ ItV3ZnI8mwgHMtsIxfupuvZ OZzuZYhOUAjcGYjFSLdT4Fn yTpvxwluLVWfJJcPURsOO0N QKVxwYXJ9 MICROSCOPIC b8qgfALtWHEhqVE6KfQnXHV DESCRIPTION (test code pk1qag1XorYVeoXSmMIhpjH = 3371) PakcPgyo27xKM8iC71RR2cD TBtImK4DYNgzxE8Aoh3WVSn TNJdpXArB214l1pjg6nblnF psXN4iNarNEDyIMFfJBavYT WbXoLsUSFPTs7ILVNORCKca n0= SPECIAL STUDIES (test t2izeHZjZZGhr4diCNAmrMS code = 3376) uZzEwMzNcZnRuYmpcdWMxIH ntxmStXHfbj5LwT6ZjRrRcH FxhbnNpXGRlZmxhbmcxMDMz DBP6jbUdUVPtIMarSKOfHRu sHt6uwFKrfFjeJaXfWGEtm6 bjnxHMaeywgMm0z8afJRRzH gL0lUMkOAsoV6xzohJrwKJs O6QywEQvnFy3y9wcKjDaQxH 9nVCsLHreE7jubuYnmTRsXK FdXUy1yU46QLBspT1psAFfA YklzqUbPyA9XYzcLVHoCuW1 GPMdgZTsRKScR5ptGOByOCp fUZHjVAtbcBXtRLC7oMhho5 Z1rSWlfDUljIknUhFzFzJrL oKKw7IcUAj8oMktU3WjXMVq HcT1pLXmMHJkWNyoAGAvGEC pyyU8qZclniFlc17puIGeYB YwXGZzMjBcbGkwXHJpMCBDb 6ChcEtiHCY6wQy6bMzeIpnx BZA0Imv1XL9iyn08ant3mQr uNVFiattzJsK4WKluOSKhmv ckWAr6SIgwNWZibIR1NQUmk DNcV9CwBYDvBU0vyxa6NGB5 ASoyTXOeOwQ3VOFkmSIyRPJ mrBpqGUauj261IND1PiNuMG 8tP6Rpo3O7yI8jjCVnVUXuh ATrFxSdUIUsar3whVSmVLlo p1TbZFC5mjM4lGGqoGFzVLA iLS68Mywuw3VxOwglu5TbE7 9xfRK5SBopz1bkXL2jTfB6h iYzQOfia5evlA3sAnM3APti NI1ySG4wRPBjgA9skdhnWAZ nYnJkcmhlYWRccGdicmRyZm 4eyPghDDM1KOcsE0kixZ6aT mV8YXieT2blbX6gONg4QFbb iHV0JKQckH0bDJ9icwawm8v aOHwnYAdlLFFkpeI1idM6SS QytWObS3XtcH3mSCCaJA8pc qgfc3lkZEN8PXdiLKQfGUH3 JjXwSZHvo2Gociq9LtZxh9R slSBlCUzgH23ja600ZHQhla KcV1vweCAbictcrLLsesftV AjhklL2XNRoAUJqLMtpZFUv XGZzMjJcbGFuZzEwMzNcaGl jaFxmMVxkYmNoXGYxXGxvY2 tlQlVrS5PsXYInFmPkXMxlY JjyzDWkfMUrjSC3mZ5vPR2o OYJxiHPqQ3PlXOPgqbSftIQ tHQX0sARhhWPmJG3pUFbrqL Pth1zxe8TkS7lzzPhgoYW8W T7jREYtMBSmTZrdk5FljP9w LlxwbGFpblxmMVxmczIyXGx godmoDEOjYGfcI9dySsMiHJ DtvCuuXGxsx5KkZTXaSLDjZ xfogrMkGLw8lfNnYJJocgxn EZVjwRmnhX3aUrSzSdFdEdx vPO6lEDGuA7rvpODkZVIqDK JjM2csQtLpyM2wtTwuVEobT pGcOyItHuEXa332ky1kZAXy mOKzrcNKaLTdzL7nKHpyXUx uMZcrqEOzLJhmu6jnJVRhu0 r4xTXbVDUzzfMrw1gtTXcml oMrZTTtdYBjjCFaNEJoh15v QVdayNjqgZlcDSVnp5RgqHg lm8FtMvXnLKwac1UoI08tjK JvbCBzbGlkZXMgcnVuIGFsb 03vd5rfDIKvDzT7hHFubAV5 qCOwqYHyg8HavNrlMMAwc5h uOEToso4hhtmagSPny7WeoP 5pbmcuIEludGVybmFsIHBvc 0t9hPWuYIFiYOQsXZnmgFa2 UNBuv478az9qtqG3iTCoUAV 2YWlsYWJsZSBhcmUgZXZhbH VhdGVkXHBsYWluXGYxXGZzM jJcbGFuZzEwMzNcaGljaFxm QHdrNzZaKBSmOJqtW2zoSpI tI1DgWHIhTfFxdEXfK7ghhN FyXHBsYWluXGYxXGZzMjJcb GFuZzEwMzNcaGljaFxmMVxk SyYnFXXdEBmuZ9hcNaIjJ9V yXGZzMjIgIFxwbGFpblxmMV xmczIyXGxhbmcxMDMzXGhpY 5qoIbHpKJJyiMwuAYvjx1Pu TQAdELAeRtecfaMsPGu7cwK oXHBhclxwbGFpblxmMVxmcz BtPFfcbcgqTBMcZZzmO5fiP aVsPFSuwKszOZyka7SfEIFm SSYhFwachzYuDTqazUJja4b il4TfL8qpfKevhGS0IDPuD1 oneNUdoVJ8HVA7xL2vJCeye nReVFThp1KdPMVsATDlUoH3 dM1lWBX3PdKMuNslOKJcTOg uXGYxXGZzMjJcbGFuZzEwMz NcaGljaFxmMVxkYmNoXGYxX WvnT6jyZkHmF3UbMJEbZaXf pLktYUpbHRc7MmhfxOQtjoo mMVxmczIyXGxhbmcxMDMzXG ifR4lmKkGsGQIfaGgtAWqhn 2NoXGYxXGNmMlxmczIyIHMg PIQuxHCtxZPYJD39OINfSOQ dwKeswW7osFCATOAbidN4p5 L0GGhrEHQtLKa9PXatioRjY AHeyC1rYRWyWM1mIYj9otSn XPUwi6AvUU1lRQBelQLjDFU 9XUEdq7QcZ2Smo2QqRSScKG Zbjn3zfoAfJvKUeUMwIRIyz k15SVZfPC8zD8vfFXGyXRJf edDpeTJmk7CjQHOufZJ9pUO xHE4NEpMFm57hEQQfJZIKwn DmHMSysVutlSB3zyM0vI0hA iBUaGUgRkRBIGhhcyBkZXRl zl5hdaBvQUWlGKGgh3NybLZ tlAIppuYrQ4Ggo9GuMUDfcg 41IPyzeYGonc01NI7sN3Nkg 4AzbX0aDZicJGRzh2BdaZHc yKGnJWGxn9DnZ1ihrzsvJNd ijYGlcG2cHRUzCBa8XVKlc9 UjGJWrd6ZfDmTsrkXvMECuR LMiQJCssJ95WZC1tDeqeUsj haXrRW2eHTPtakYcWETcPRN sbM0rKOpzyaVyYNUdgeH6e9 J4CQshBOAgpgRsGqnaHQX7z nYshtP2mOCaR7axpzpsRNom OCSvm8WqdZ1zcEQYpODwj3N zlDEbeMSScOJqOE2csmWdNE 5qCEM9NPlpNVVOYETvREjlI LXeMLM1FBryRdkkCXU6lmAd ELDlk0NjOAthX9ozU48sbVv yvGy3dNPpqBnozKTdlVNaBU HlbkT9b0Y5PEOkb5YuftgbP HBsYWluXGYyXGZzMjJcbGFu ZzEwMzNcaGljaFxmMlxkYmN kBKTqUAnjD6vqAmRgChSbIq wwELJ1kI== [id number] 19:02:00Surgical Pathology Report Case: [id number] Authorizing Provider: Star Cloud DPM Collected: 03/13/2020 12:32 PM Ordering Location: [facility] Received: 03/13/2020 02:59 PM PERIOPERATIVE SERVICES Pathologist: Vandana Beverly MD Specimen: Metatarsal, Right, base of the first metatarsal bone RIGHT FOOT, BASE OF 1ST METATARSAL, NON- HEALING WOUND, DEBRIDEMENT: - GANGRENOUS NECROSIS INVOLVING SKIN AND SUBCUTANEOUSTISSUE - ACUTE OSTEOMYELITIS, SEVERE Signing Pathologist Direct Phone Line: [phone] signed by Vandana Beverly MD on 03/17/2020 at 7:02 [id number]; [id number] surgical wound, sequela Metatarsal, rightReceived in formalin labeled the patient's name, accession number and "base of the first metatarsal bone" is a 6.0 x 5.5 x 2.0 cm aggregate of gardner-yellow, trabeculated bone fragments and a 5.0 x 4.5 x 0.3 cm portion of green-black, necrotic fat and soft tissue. Due to the fragmented nature of the specimen, the margin cannot be assessed. The articular surface is gardner-baca and partially blackened. Sectioning reveals a gardner-yellow, firm, trabeculated cut surface. Teller Manager sections are submitted as follows:Section codeA1-skin and soft hpkzfjO1-G5-kenz following decalcificationLEW Pérez HT (ASCP)PERFORMEDThe interpretation of this case included the use of immunohistochemistry or special stains.Control Slides Examined: In-house known positive controls were evaluated along with the test tissue. These control slides run alongside of the patients sample show appropriate staining. Internal positive and negative controls when available are evaluated Immunohistochemistry technical testing was performed at [facility] where it was developed and its performance characteristics were determined. It has not been cleared or approved by the U.S. Food and Drug Administration. The FDA has determined that such maritza sofia or approval is not necessary. The test is used for clinical purposes. It should not be regarded as investigational or for research. This laboratory is certified under the Clinical Laboratory Improvement Amendments of 1988 (CLIA-88) as qualified to perform high complexity clinical laboratory testing.POCT-GLUCOSE [id number] 17:26:00 Test Item Value Reference Range Interpretation Comments POC-GLUCOSE METER 145 mg/dL 70-110 H : TESTED A T [facility] 6720 (Shutl) (test code = [facility] Pick a Student [facility], 1538) [id number]: Contract Engineer/Techni estefani ID = [id number] for Sabine Vazquez POCT-GLUCOSE [id number] 07:31:00 Test Item Value Reference Range Interpretation Comments POC-GLUCOSE METER 94 mg/dL 70-110 : TESTED A T [facility] 6720 (BEAKER) (test code = [facility] Pick a Student [facility], 1538) [id number]: Contract Engineer/Techni estefani ID = [id number] for JAD MICHAEL CBC W/PLT COUNT & AUTO [id number] 06:23:00 Test Item Value Reference Range Interpretation Comments WHITE BLOOD CELL COUNT (BEAKER) 9.5 K/ L 3.5-10.5 (test code = 775) RED BLOOD CELL COUNT (BEAKER) 2.73 M/ L 4.63-6.08 L (test code = 761) HEMOGLOBIN (BEAKER) (test code = 7.2 GM/DL 13.7-17.5 L 410) HEMATOCRIT (BEAKER) (test code = 23.6 % 40.1-51.0 L 411) MEAN CORPUSCULAR VOLUME (BEAKER) 86.4 fL 79.0-92.2 (test code = 753) MEAN CORPUSCULAR HEMOGLOBIN 26.4 pg 25.7-32.2 (BEAKER) (test code = 751) MEAN CORPUSCULAR HEMOGLOBIN CONC 30.5 GM/DL 32.3-36.5 L (BEAKER) (test code = 752) RED CELL DISTRIBUTION WIDTH 18.9 % 11.6-14.4 H (BEAKER) (test code = 412) PLATELET COUNT (BEAKER) (test 290 K/CU MM 150-450 code = 756) MEAN PLATELET VOLUME (BEAKER) 9.9 fL 9.4-12.4 (test code = 754) NUCLEATED RED BLOOD CELLS 0 /100 WBC 0-0 (BEAKER) (test code = 413) NEUTROPHILS RELATIVE PERCENT 67 % (BEAKER) (test code = 429) LYMPHOCYTES RELATIVE PERCENT 14 % (BEAKER) (test code = 430) MONOCYTES RELATIVE PERCENT 8 % (BEAKER) (test code = 431) EOSINOPHILS RELATIVE PERCENT 9 % (BEAKER) (test code = 432) BASOPHILS RELATIVE PERCENT 1 % (BEAKER) (test code = 437) NEUTROPHILS ABSOLUTE COUNT 6.34 K/ L 1.78-5.38 H (BEAKER) (test code = 670) LYMPHOCYTES ABSOLUTE COUNT 1.35 K/ L 1.32-3.57 (BEAKER) (test code = 414) MONOCYTES ABSOLUTE COUNT (BEAKER) 0.80 K/ L 0.30-0.82 (test code = 415) EOSINOPHILS ABSOLUTE COUNT 0.86 K/ L 0.04-0.54 H (BEAKER) (test code = 416) BASOPHILS ABSOLUTE COUNT (BEAKER) 0.10 K/ L 0.01-0.08 H (test code = 417) IMMATURE GRANULOCYTES-RELATIVE 1 % 0-1 PERCENT (BEAKER) (test code = 2801) POCT-GLUCOSE [id number] 06:14:00 Test Item Value Reference Range Interpretation Comments POC-GLUCOSE METER 97 mg/dL 70-110 : TESTED A T [facility] 6720 (BEAKER) (test code = DASIA SONG [place], 1538) [address]: Contract Engineer/Techni estefani ID = [id number] for TEJINDER KITCHEN [employer] [id number] 06:14:00 Test Item Value Reference Range Interpretation Comments SODIUM (BEAKER) 138 meq/L 136-145 (test code = 381) POTASSIUM (BEAKER) 4.1 meq/L 3.5-5.1 (test code = 379) CHLORIDE (BEAKER) 99 meq/L 98-107 (test code = 382) CO2 (BEAKER) (test 27 meq/L 22-29 code = 355) BLOOD UREA NITROGEN 52 mg/dL 7-21 H (BEAKER) (test code = 354) CREATININE (BEAKER) 9.43 mg/dL 0.57-1.25 H (test code = 358) GLUCOSE RANDOM 98 mg/dL 70-105 (BEAKER) (test code = 652) CALCIUM (BEAKER) 7.8 mg/dL 8.4-10.2 L (test code = 697) EGFR (BEAKER) (test 6 mL/min/1.73 ESTIMAT ED GFR IS code = 1092) sq m NOT ACCURATE CREATININE CLEARANCE IN PREDICTING GLOMERULAR FILTRATION RATE . ESTIMATED GFR I S NOT APPLICABLE FOR DIALYSIS PATIEN TS. Contract Engineer ID - EDASIBlood Culture - Routine (Left Venipuncture)2020-03-17 00:01:00 Test Item Value Reference Range Interpretation Comments Result (test code = No growth in 5 days 6463-4) [facility] [id number]:01:00 Test Item Value Reference Range Interpretation Comments CULTURE (BEAKER) (test No growth in 5 days code = 1095) BLOOD [id number] 00:01:00 Test Item Value Reference Range Interpretation Comments CULTURE (BEAKER) (test No growth in 5 days code = 1095) POCT-GLUCOSE [id number] 21:35:00 Test Item Value Reference Range Interpretation Comments POC-GLUCOSE METER 169 mg/dL 70-110 H : TESTED A T [facility] 6720 (BEAKER) (test code = DASIA Garcia [facility], 1538) [address]: Contract Engineer/Techni estefani ID = [id number] for ARELIS MORALESIA POCT-GLUCOSE [id number] 17:54:00 Test Item Value Reference Range Interpretation Comments POC-GLUCOSE METER 133 mg/dL 70-110 H : TESTED A T [facility] 6720 (BEAKER) (test code = DASIA Garcia [facility], 1538) [address]: Contract Engineer/Techni estefani ID = [id number] for JAQUI SKELTON POCT-GLUCOSE [id number] 12:50:00 Test Item Value Reference Range Interpretation Comments POC-GLUCOSE METER 110 mg/dL 70-110 : TESTED A T [facility] 6720 (BEAKER) (test code = CHRISTOSSD Jose [facility], 153) [address]: Contract Engineer/Techni estefani ID = [id number] for JAQUI SKELTON SURGICALLY OBTAINED CULTURE + GRAM [id number] 09:39:00 Test Item Value Reference Range Interpretation Comments CULTURE A 2+ Same organis m has (BEAKER) (test been isolated from code = 1095) cultures(s) of the same body site within 3 days. Repeat identification and susceptibility testing performed only after consultation wi th the clinical microb iology laboratory.Refe r to previous cultur e ofPseudomonas aeruginosaof a second type GRAM STAIN 3+ White blood RESULT (BEAKER) cells seen (test code = 1123) GRAM STAIN No organisms seen RESULT (BEAKER) (test code = 553246) SURGICALLY OBTAINED CULTURE + GRAM [id number] 09:39:00 Test Item Value Reference Range Interpretation Comments CULTURE (BEAKER) A 1+ Same org anism has (test code = been isolated f rom 1095) cultures(s) of the same body site within 3 days. Repeat identification and susceptibility testing performed only after consultation wi th the clinical microb iology laboratory.Refe r to previous cultur e ofPseudomonas aeruginosaof a second type GRAM STAIN 2+ White blood RESULT (BEAKER) cells seen (test code = 1123) GRAM STAIN <1+ gram RESULT (BEAKER) negative rods (test code = 009875) POCT-GLUCOSE [id number] 08:12:00 Test Item Value Reference Range Interpretation Comments POC-GLUCOSE METER 88 mg/dL 70-110 : TESTED A T [facility] 6720 (BEAKER) (test code = CHRISTOSSD Jose [facility], 1538) [address]: Contract Engineer/Techni estefani ID = [id number] for GAUTAM RUIZ (V), EFRAIN POCT-GLUCOSE [id number] 07:19:00 Test Item Value Reference Range Interpretation Comments POC-GLUCOSE METER 97 mg/dL 70-110 : TESTED A T [facility] 6720 (BEAKER) (test code = DAS[facility] SONG [place], 1538) [address]: Contract Engineer/Techni estefani ID = [id number] for NATE JUAN [employer] [id number] 07:19:00 Test Item Value Reference Range Interpretation Comments SODIUM (BEAKER) 137 meq/L 136-145 (test code = 381) POTASSIUM (BEAKER) 3.8 meq/L 3.5-5.1 (test code = 379) CHLORIDE (BEAKER) 100 meq/L 98-107 (test code = 382) CO2 (BEAKER) (test 28 meq/L 22-29 code = 355) BLOOD UREA NITROGEN 40 mg/dL 7-21 H (BEAKER) (test code = 354) CREATININE (BEAKER) 7.94 mg/dL 0.57-1.25 H (test code = 358) GLUCOSE RANDOM 93 mg/dL 70-105 (BEAKER) (test code = 652) CALCIUM (BEAKER) 7.9 mg/dL 8.4-10.2 L (test code = 697) EGFR (BEAKER) (test 7 mL/min/1.73 ESTIMAT ED GFR IS code = 1092) sq m NOT ACCURATE CREATININE CLEARANCE IN PREDICTING GLOMERULAR FILTRATION RATE . ESTIMATED GFR I S NOT APPLICABLE FOR DIALYSIS PATIEN TS. Contract Engineer ID - [id number] 07:08:00 Test Item Value Reference Range Interpretation Comments Magnesium (test code = 2.1 mg/dL 1.6-2.6 21552-6) MITCHELL (test code = MITCHELL) Contract Engineer ID - EDASI Lab Interpretation (test Normal code = 58923-2) [id number] 07:08:00 Test Item Value Reference Range Interpretation Comments MAGNESIUM (BEAKER) (test code = 2.1 mg/dL 1.6-2.6 627) Contract Engineer ID - EDASICBC W/PLT COUNT & AUTO [id number] 06:30:00 Test Item Value Reference Range Interpretation Comments WHITE BLOOD CELL COUNT (BEAKER) 9.3 K/ L 3.5-10.5 (test code = 775) RED BLOOD CELL COUNT (BEAKER) 2.75 M/ L 4.63-6.08 L (test code = 761) HEMOGLOBIN (BEAKER) (test code = 7.4 GM/DL 13.7-17.5 L 410) HEMATOCRIT (BEAKER) (test code = 23.1 % 40.1-51.0 L 411) MEAN CORPUSCULAR VOLUME (BEAKER) 84.0 fL 79.0-92.2 (test code = 753) MEAN CORPUSCULAR HEMOGLOBIN 26.9 pg 25.7-32.2 (BEAKER) (test code = 751) MEAN CORPUSCULAR HEMOGLOBIN CONC 32.0 GM/DL 32.3-36.5 L (BEAKER) (test code = 752) RED CELL DISTRIBUTION WIDTH 19.6 % 11.6-14.4 H (BEAKER) (test code = 412) PLATELET COUNT (BEAKER) (test 267 K/CU MM 150-450 code = 756) MEAN PLATELET VOLUME (BEAKER) 10.1 fL 9.4-12.4 (test code = 754) NUCLEATED RED BLOOD CELLS 0 /100 WBC 0-0 (BEAKER) (test code = 413) NEUTROPHILS RELATIVE PERCENT 64 % (BEAKER) (test code = 429) LYMPHOCYTES RELATIVE PERCENT 17 % (BEAKER) (test code = 430) MONOCYTES RELATIVE PERCENT 9 % (BEAKER) (test code = 431) EOSINOPHILS RELATIVE PERCENT 8 % (BEAKER) (test code = 432) BASOPHILS RELATIVE PERCENT 1 % (BEAKER) (test code = 437) NEUTROPHILS ABSOLUTE COUNT 5.97 K/ L 1.78-5.38 H (BEAKER) (test code = 670) LYMPHOCYTES ABSOLUTE COUNT 1.57 K/ L 1.32-3.57 (BEAKER) (test code = 414) MONOCYTES ABSOLUTE COUNT (BEAKER) 0.88 K/ L 0.30-0.82 H (test code = 415) EOSINOPHILS ABSOLUTE COUNT 0.76 K/ L 0.04-0.54 H (BEAKER) (test code = 416) BASOPHILS ABSOLUTE COUNT (BEAKER) 0.12 K/ L 0.01-0.08 H (test code = 417) IMMATURE GRANULOCYTES-RELATIVE 0 % 0-1 PERCENT (BEAKER) (test code = 2801) POCT-GLUCOSE [id number] 20:33:00 Test Item Value Reference Range Interpretation Comments POC-GLUCOSE METER 129 mg/dL 70-110 H : TESTED A T [facility] 6720 (BEAKER) (test code = [facility]8) [address]: Contract Engineer/Techni estefani ID = [id number] for JAD SALGUERO POCT-GLUCOSE [id number] 17:20:00 Test Item Value Reference Range Interpretation Comments POC-GLUCOSE METER 108 mg/dL 70-110 : TESTED A T [facility] 6720 (BEAKER) (test code = [facility]8) 227[address]: Contract Engineer/Techni estefani ID = [id number] for KO LLEADE, RITCHEL POCT-GLUCOSE [id number] 11:17:00 Test Item Value Reference Range Interpretation Comments POC-GLUCOSE METER 115 mg/dL 70-110 H : TESTED A T [facility] 6720 (BEAKER) (test code = [facility]8) 74[address]: Contract Engineer/Techni estefani ID = [id number] for OK BERTHA, ANYA POCT-GLUCOSE [id number] 08:18:00 Test Item Value Reference Range Interpretation Comments POC-GLUCOSE METER 87 mg/dL 70-110 : TESTED A T [facility] 6720 (BEAKER) (test code = [facility]) [address]: Contract Engineer/Techni estefani ID = [id number] for ARIANNE GALLEGO, RITCHEL [id number] 07:32:00 Test Item Value Reference Range Interpretation Comments MAGNESIUM (BEAKER) (test code = 2.0 mg/dL 1.6-2.6 627) Contract Engineer ID - EDASIBASIC METABOLIC [id number] 07:32:00 Test Item Value Reference Range Interpretation Comments SODIUM (BEAKER) 138 meq/L 136-145 (test code = 381) POTASSIUM (BEAKER) 3.7 meq/L 3.5-5.1 (test code = 379) CHLORIDE (BEAKER) 101 meq/L 98-107 (test code = 382) CO2 (BEAKER) (test 31 meq/L 22-29 H code = 355) BLOOD UREA NITROGEN 30 mg/dL 7-21 H (BEAKER) (test code = 354) CREATININE (BEAKER) 6.26 mg/dL 0.57-1.25 H (test code = 358) GLUCOSE RANDOM 86 mg/dL 70-105 (BEAKER) (test code = 652) CALCIUM (BEAKER) 8.1 mg/dL 8.4-10.2 L (test code = 697) EGFR (BEAKER) (test 9 mL/min/1.73 ESTIMAT ED GFR IS code = 1092) sq m NOT ACCURATE CREATININE CLEARANCE IN PREDICTING GLOMERULAR FILTRATION RATE . ESTIMATED GFR I S NOT APPLICABLE FOR DIALYSIS PATIEN TS. Contract Engineer ID - EDASICBC W/PLT COUNT & AUTO [id number] 07:08:00 Test Item Value Reference Range Interpretation Comments WHITE BLOOD CELL COUNT (BEAKER) 9.2 K/ L 3.5-10.5 (test code = 775) RED BLOOD CELL COUNT (BEAKER) 2.62 M/ L 4.63-6.08 L (test code = 761) HEMOGLOBIN (BEAKER) (test code = 6.8 GM/DL 13.7-17.5 L 410) HEMATOCRIT (BEAKER) (test code = 22.0 % 40.1-51.0 L 411) MEAN CORPUSCULAR VOLUME (BEAKER) 84.0 fL 79.0-92.2 (test code = 753) MEAN CORPUSCULAR HEMOGLOBIN 26.0 pg 25.7-32.2 (BEAKER) (test code = 751) MEAN CORPUSCULAR HEMOGLOBIN CONC 30.9 GM/DL 32.3-36.5 L (BEAKER) (test code = 752) RED CELL DISTRIBUTION WIDTH 20.8 % 11.6-14.4 H (BEAKER) (test code = 412) PLATELET COUNT (BEAKER) (test 265 K/CU MM 150-450 code = 756) MEAN PLATELET VOLUME (BEAKER) 10.0 fL 9.4-12.4 (test code = 754) NUCLEATED RED BLOOD CELLS 0 /100 WBC 0-0 (BEAKER) (test code = 413) NEUTROPHILS RELATIVE PERCENT 68 % (BEAKER) (test code = 429) LYMPHOCYTES RELATIVE PERCENT 14 % (BEAKER) (test code = 430) MONOCYTES RELATIVE PERCENT 10 % (BEAKER) (test code = 431) EOSINOPHILS RELATIVE PERCENT 7 % (BEAKER) (test code = 432) BASOPHILS RELATIVE PERCENT 1 % (BEAKER) (test code = 437) NEUTROPHILS ABSOLUTE COUNT 6.21 K/ L 1.78-5.38 H (BEAKER) (test code = 670) LYMPHOCYTES ABSOLUTE COUNT 1.29 K/ L 1.32-3.57 L (BEAKER) (test code = 414) MONOCYTES ABSOLUTE COUNT (BEAKER) 0.94 K/ L 0.30-0.82 H (test code = 415) EOSINOPHILS ABSOLUTE COUNT 0.61 K/ L 0.04-0.54 H (BEAKER) (test code = 416) BASOPHILS ABSOLUTE COUNT (BEAKER) 0.09 K/ L 0.01-0.08 H (test code = 417) IMMATURE GRANULOCYTES-RELATIVE 0 % 0-1 PERCENT (BEAKER) (test code = 2801) POCT-GLUCOSE [id number] 22:22:00 Test Item Value Reference Range Interpretation Comments POC-GLUCOSE METER 180 mg/dL 70-110 H : TESTED A T [facility] 6720 ([facility]) (test code = DAS[place] SONG [place], 1538) [address]: Contract Engineer/Techni estefani ID = [id number] for CRYSTAL RANGEL HEMODIALYSIS [id number] 18:46:00Cornelius Gurrola, RN 03/14/2020 7:06 PMLab Results Component Value Date WBC 7.5 03/11/2020 HGB 8.5 (L) 03/13/2020 HCT 25.0 (L) 03/13/2020 MCV 82.8 03/11/2020 PLT 302 03/11/2020 Lab Results Component Value Date GLUCOSE 85 03/14/2020 CALCIUM 7.8 (L) 03/14/2020 NA 136 03/14/2020 K 4.2 03/14/2020 CO2 25 03/14/2020 CL 99 03/14/2020 BUN 58 (H) 03/14/2020 CREATININE 9.27 (H) 03/14/2020 Lab Results Component Value Date HEPBSAG Nonreactive 01/21/2020 Hep B SAg sent to lab at start of treatment. Results negative (non-reactive). HD X 3 hours completed via LUE fistula. Net UF -2L. VSS. Cornelius Gurrola, SUNITA Attempted to call report to [facility] at 1820 but RN did not come to phone after 10 minutes' wait. Cornelius Gurrola RNCHI [facility] [id number] 17:23:00 Test Item Value Reference Range Interpretation Comments HEPATITIS B SURFACE ANTIGEN (2) Nonreactive Nonreactive (BEAKER) (test code = 2585) Specimen is considered negative for HBsAg.SPIN/CONCENTRATION [id number] 14:24:00 Test Item Value Reference Range Interpretation Comments CONCENTRATION CHARGED (BEAKER) (test Done code = 2657) SPIN/CONCENTRATION [id number] 14:23:00 Test Item Value Reference Range Interpretation Comments CONCENTRATION CHARGED (BEAKER) (test Done code = 2657) POCT-GLUCOSE [id number] 12:00:00 Test Item Value Reference Range Interpretation Comments POC-GLUCOSE METER 84 mg/dL 70-110 : [facility]ED [facility] T [facility] (BEAKER) (test code = [place], 1538) [id number]: Contract Engineer/Techni estefani ID = [id number] for AMADA DUKES BASIC METABOLIC [id number] 09:03:00 Test Item Value Reference Range Interpretation Comments SODIUM (BEAKER) 136 meq/L 136-145 (test code = 381) POTASSIUM (BEAKER) 4.2 meq/L 3.5-5.1 (test code = 379) CHLORIDE (BEAKER) 99 meq/L 98-107 (test code = 382) CO2 (BEAKER) (test 25 meq/L 22-29 code = 355) BLOOD UREA NITROGEN 58 mg/dL 7-21 H (BEAKER) (test code = 354) CREATININE (BEAKER) 9.27 mg/dL 0.57-1.25 H (test code = 358) GLUCOSE RANDOM 85 mg/dL 70-105 (BEAKER) (test code = 652) CALCIUM (BEAKER) 7.8 mg/dL 8.4-10.2 L (test code = 697) EGFR (BEAKER) (test 6 mL/min/1.73 ESTIMAT ED GFR IS code = 1092) sq m NOT ACCURATE CREATININE CLEARANCE IN PREDICTING GLOMERULAR FILTRATION RATE . ESTIMATED GFR I S NOT APPLICABLE FOR DIALYSIS PATIEN TS. Contract Engineer ID - PIAYA [id number] 08:43:00 Test Item Value Reference Range Interpretation Comments MAGNESIUM (BEAKER) (test code = 2.4 mg/dL 1.6-2.6 627) Contract Engineer ID - DANITZA LPOCT-GLUCOSE [id number] 07:47:00 Test Item Value Reference Range Interpretation Comments POC-GLUCOSE METER 99 mg/dL 70-110 : TESTED A T [facility] 6720 (BEAKER) (test code = [facility], 1538) [id number]: Contract Engineer/Techni estefani ID = [id number] for AMADA DUKES POCT-GLUCOSE [id number] 22:12:00 Test Item Value Reference Range Interpretation Comments POC-GLUCOSE METER 139 mg/dL 70-110 H : TESTED A T [facility] 6720 (BEAKER) (test code = [facility], 1538) [id number]: Contract Engineer/Techni estefani ID = [id number] for TEJINDER MORALES POCT-GLUCOSE [id number] 17:34:00 Test Item Value Reference Range Interpretation Comments POC-GLUCOSE METER 157 mg/dL 70-110 H : TESTED A T [facility] 6720 (BEAKER) (test code = [facility], 1538) [id number]: Contract Engineer/Techni estefani ID = [id number] for DANK GALINDO (V), EFRAIN POCT-GLUCOSE [id number] 14:08:00 Test Item Value Reference Range Interpretation Comments POC-GLUCOSE METER 94 mg/dL 70-110 : TESTED A T [facility] 6720 (BEAKER) (test code = [facility], 1538) [address]: Contract Engineer/Techni estefani ID = [id number] for MARTIN SHARMA HGB/HCT (H&H) - STAT [id number] 10:02:00 Test Item Value Reference Range Interpretation Comments HEMOGLOBIN (BEAKER) (test code = 8.5 GM/DL 13.0-16.8 L 410) HEMATOCRIT (BEAKER) (test code = 25.0 % 40.0-50.0 L 411) POTASSIUM-STAT [id number] 09:56:00 Test Item Value Reference Range Interpretation Comments POTASSIUM (BEAKER) (test code = 3.6 meq/L 3.6-5.5 379) POCT-GLUCOSE [id number] 07:53:00 Test Item Value Reference Range Interpretation Comments POC-GLUCOSE METER 97 mg/dL 70-110 : TESTED A T [facility] 6720 (BEAKER) (test code = [facility], 1538) 897[address]: Contract Engineer/Techni estefani ID = [id number] for COLLINS SIFUENTES POCT-GLUCOSE [id number] 22:01:00 Test Item Value Reference Range Interpretation Comments POC-GLUCOSE METER 173 mg/dL 70-110 H : TESTED A T [facility] 6720 (BEAKER) (test code = [facility], 1538) [address]: Contract Engineer/Techni estefani ID = [id number] for JAD SALGUERO POCT-GLUCOSE [id number] 18:20:00 Test Item Value Reference Range Interpretation Comments POC-GLUCOSE METER 161 mg/dL 70-110 H : TESTED A T [facility] 6720 (BEAKER) (test code [facility], = 1538) [address]: Contract Engineer/Techni estefani ID = [id number] for COLLINS SIFUENTES POCT-GLUCOSE [id number] 12:22:00 Test Item Value Reference Range Interpretation Comments POC-GLUCOSE METER 94 mg/dL 70-110 : TESTED A T [facility] 6720 (BEAKER) (test code = [facility], 1538) [id number]: Contract Engineer/Techni estefani ID = [id number] for COLLINS SIFUENTES SARS-COV2/RT-PCR ([facility])2020-03-12 12:11:00 Test Item Value Reference Range Interpretation Comments SARS-COV2/RT-PCR (test code Negative Not Detected, Negative, = 3458907) See external report for linked test SARS-COV-2 PERFORMING LAB [facility] (test code = 9506421) Negative results do not preclude SARS-CoV-2 infection [...] of the Act.Fact Sheet for Healthcare Pro viders:https://www.barter.li/Documents/Xpert%20Xpress%20SARS%20CoV-2/Fact%20Sh eets/302-3802%16WKIA-RSL-4%20HEALTHCARE%20PROVIDERS%20FACT%20SHEET.pdfFact Sheet for Healthcare Patients:https://www.GordianTec/Documents/Xpert%20Xpress%20SARS%20CoV-2/Fact%20Sheets/302-3801%20SARS-COV -2%20PATIENT%20FACT%20SHEET.pdfPerforming Laboratory:[facility], [place] [address]DCIY-PQZEAFI [id number] 08:44:00 Test Item Value Reference Range Interpretation Comments POC-GLUCOSE METER 92 mg/dL 70-110 : TESTED A T [facility] 6720 (BEAKER) (test code = CHRISTOSGISELLE Garcia [facility], 1538) [address]: Contract Engineer/Techni estefani ID = [id number] for COLLINS SIFUENTES Hemoglobin [id number] 08:17:00 Test Item Value Reference Range Interpretation Comments Hemoglobin A1C (test code = 4548-4) 5.6 % 4.3-6.1 Lab Interpretation (test code = Normal 62884-8) [facility] [id number] 08:17:00 Test Item Value Reference Range Interpretation Comments HEMOGLOBIN A1C (BEAKER) (test code = 5.6 % 4.3-6.1 368) Hepatic function [id number] 06:07:00 Test Item Value Reference Range Interpretation Comments Protein, Total (test 6.5 See_Comment [Autom ated code = 2885-2) message] The system which generated this result transmit doris reference range : 6.0 - 8.3 gm/dL . The reference range was not u sed to interpret th is result as normal/abnormal . Albumin (test code = 3.1 g/dL 3.5-5 L 01097-2) Total Bilirubin (test 0.3 mg/dL 0.2-1.2 code = 1975-2) Bilirubin, Direct 0.2 mg/dL 0.1-0.5 (test code = 1968-7) Alkaline Phosphatase 92 U/L 40-150 (test code = 6768-6) AST (test code = 8 U/L 5-34 1920-8) ALT (test code = <6 6-55 L 1742-6) MITCHELL (test code = MITCHELL) Contract Engineer ID - ADMIN Lab Interpretation Abnormal (test code = 07663-0) [facility] [id number] 06:07:00 Test Item Value Reference Range Interpretation Comments TOTAL PROTEIN (BEAKER) (test code = 6.5 gm/dL 6.0-8.3 770) ALBUMIN (BEAKER) (test code = 1145) 3.1 g/dL 3.5-5.0 L BILIRUBIN TOTAL (BEAKER) (test code 0.3 mg/dL 0.2-1.2 = 377) BILIRUBIN DIRECT (BEAKER) (test 0.2 mg/dL 0.1-0.5 code = 706) ALKALINE PHOSPHATASE (BEAKER) (test 92 U/L 40-150 code = 346) AST (SGOT) (BEAKER) (test code = 8 U/L 5-34 353) ALT (SGPT) (BEAKER) (test code = < U/L 6-55 L 347) Contract Engineer ID - ADMINC-Reactive [id number] 06:06:00 Test Item Value Reference Range Interpretation Comments CRP (test code = 676) 3.99 mg/dL 0-0.5 H MITCHELL (test code = MITCHELL) Contract Engineer ID - ADMIN Lab Interpretation (test Abnormal code = 52785-0) [facility] Center[facility]-REACTIVE [id number] 06:06:00 Test Item Value Reference Range Interpretation Comments C-REACTIVE PROTEIN (BEAKER) (test 3.99 mg/dL 0.00-0.50 H code = 676) Contract Engineer ID - ADMINBASIC METABOLIC [id number] 06:06:00 Test Item Value Reference Range Interpretation Comments SODIUM (BEAKER) 136 meq/L 136-145 (test code = 381) POTASSIUM (BEAKER) 3.1 meq/L 3.5-5.1 L (test code = 379) CHLORIDE (BEAKER) 99 meq/L 98-107 (test code = 382) CO2 (BEAKER) (test 26 meq/L 22-29 code = 355) BLOOD UREA NITROGEN 33 mg/dL 7-21 H (BEAKER) (test code = 354) CREATININE (BEAKER) 6.48 mg/dL 0.57-1.25 H (test code = 358) GLUCOSE RANDOM 91 mg/dL 70-105 (BEAKER) (test code = 652) CALCIUM (BEAKER) 7.9 mg/dL 8.4-10.2 L (test code = 697) EGFR (BEAKER) (test 9 mL/min/1.73 ESTIMAT ED GFR IS code = 1092) sq m NOT ACCURATE CREATININE CLEARANCE IN PREDICTING GLOMERULAR FILTRATION RATE . ESTIMATED GFR I S NOT APPLICABLE FOR DIALYSIS PATIEN TS. Contract Engineer ID - ADMINProthrombin time/[id number] 04:50:00 Test Item Value Reference Interpretation Comments Range Protime (test code = 14.2 See_Comment [Autom ated 5902-2) message] The system which generated this result transmitted reference range : 11.9 - 14.2 seconds. The reference range was not used to interpret this result as normal/abnormal . INR (test code = 1.13 See_Comment [Automated 4801-6) message] The system which generated this result transmitted reference range : <=5.90. The reference range was not used to interpret this result as normal/abnormal . MITCHELL (test code = Effective 08/02/2018: MITCHELL) PT Reference Range ChangeNew: 11.9-14.2 Previous: 11.7-14.7 RECOMMENDED COUMADIN/WARFARIN INR THERAPY RANGESSTANDARD DOSE: 2.0-3.0 Includes: PROPHYLAXIS for venous thrombosis, systemic embolization; TREATMENT for venous thrombosis and/or pulmonary embolus.HIGH RISK: Target INR is 2.5-3.5 for patients wiht mechanical heart valves. Lab Interpretation Normal (test code = 19061-2) [facility] CenterPROTHROMBIN TIME/[id number] 04:50:00 Test Item Value Reference Range Interpretation Comments PROTIME (BEAKER) (test code = 14.2 seconds 11.9-14.2 759) INR (BEAKER) (test code = 370) 1.13 <=5.90 Effective 08/02/2018: PT Reference Range ChangeNew: 11.9-14.2 Previous: 11.7- 14.7RECOMMENDED COUMADIN/WARFARIN INR THERAPY RANGESSTANDARD DOSE: 2.0-3.0 Includes: PROPHYLAXIS for venous thrombosis, systemic embolization; TREATMENT for venous thrombosis and/or pulmonary embolus.HIGH RISK: Target INR is2.5-3.5 for patients wiht mechanical heart valves.Comprehensive metabolic panel 2020-03-12 00:24:00 Test Item Value Reference Range Interpretation Comments Protein, Total (test 6.8 See_Comment Specime n slightly code = 7875-2) hemolyzed [Automated message] The system which generated this result transmitted reference range : 6.0 - 8.3 gm/dL . The reference range was not used to interpr et this result as normal/abnormal . Albumin (test code = 3.1 g/dL 3.5-5 L Specime n slightly 64325-9) hemolyzed Alkaline Phosphatase 100 U/L 40-150 (test code = 6768-6) Total Bilirubin (test 0.3 mg/dL 0.2-1.2 Specim en slightly code = 1974-2) hemolyzed Sodium (test code = 133 meq/L 136-145 L 2951-2) Potassium (test code 4.1 meq/L 3.5-5.1 Specime n slightly = 2823-3) hemolyzed Chloride (test code = 97 meq/L 98-107 L 2074-0) CO2 (test code = 24 meq/L -2027-9) BUN (test code = 31 mg/dL 7-21 H 3094-0) Creatinine (test code 6.00 mg/dL 0.57-1.25 H Specim en slightly = 2160-0) hemolyzed Glucose (test code = 159 mg/dL 70-105 H 2345-7) Calcium (test code = 7.9 mg/dL 8.4-10.2 L 50107-5) AST (test code = 18 U/L 5-34 Specimen sl ightly 1920-8) hemolyzed ALT (test code = 7 U/L 6-55 Specimen sl ightly 1742-6) hemolyzed EGFR (test code = 10 mL/min/1.73 [place] [address]-5) NOT ACCURATE CREATININE CLEARANCE IN PREDICTING GLOMERULAR FILTRATION RATE . ESTIMATED GFR I S NOT APPLICABLE FOR DIALYSIS PATIENTS. MITCHELL (test code = MITCHELL) Contract Engineer ID - PIZAYRA LOperator ID - PIAYA L Lab Interpretation Abnormal (test code = 02260-5) [facility] CenterCOMPREHENSIVE METABOLIC [id number] 00:24:00 Test Item Value Reference Range Interpretation Comments TOTAL PROTEIN 6.8 gm/dL 6.0-8.3 Specimen sligh tly (BEAKER) (test code = hemoly zed 770) ALBUMIN (BEAKER) 3.1 g/dL 3.5-5.0 L Specimen sl ightly (test code = 1145) hemolyzed ALKALINE PHOSPHATASE 100 U/L 40-150 (BEAKER) (test code = 346) BILIRUBIN TOTAL 0.3 mg/dL 0.2-1.2 Specimen sli ghtly (BEAKER) (test code = hemoly zed 377) SODIUM (BEAKER) (test 133 meq/L 136-145 L code = 381) POTASSIUM (BEAKER) 4.1 meq/L 3.5-5.1 Specimen slightly (test code = 379) hemolyzed CHLORIDE (BEAKER) 97 meq/L 98-107 L (test code = 382) CO2 (BEAKER) (test 24 meq/L 22-29 code = 355) BLOOD UREA NITROGEN 31 mg/dL 7-21 H (BEAKER) (test code = 354) CREATININE (BEAKER) 6.00 mg/dL 0.57-1.25 H Specimen slightly (test code = 358) hemolyzed GLUCOSE RANDOM 159 mg/dL 70-105 H (BEAKER) (test code = 652) CALCIUM (BEAKER) 7.9 mg/dL 8.4-10.2 L (test code = 697) AST (SGOT) (BEAKER) 18 U/L 5-34 Specimen slightly (test code = 353) hemolyzed ALT (SGPT) (BEAKER) 7 U/L 6-55 Specimen slightly (test code = 347) hemolyzed EGFR (BEAKER) (test 10 mL/min/1.73 ESTIMA DORIS GFR IS code = 1092) sq m NOT ACCURATE CREATININE CLEARANCE IN PREDICTING GLOMERULAR FILTRATION RATE . ESTIMATED GFR I S NOT APPLICABLE FOR DIALYSIS PATIEN TS. Contract Engineer ID - DANITZA LOperator ID - DANITZA LCBC W/PLT COUNT & AUTO [id number] 23:42:00 Test Item Value Reference Range Interpretation Comments WHITE BLOOD CELL COUNT (BEAKER) 7.5 K/ L 3.5-10.5 (test code = 775) RED BLOOD CELL COUNT (BEAKER) 2.90 M/ L 4.63-6.08 L (test code = 761) HEMOGLOBIN (BEAKER) (test code = 7.5 GM/DL 13.7-17.5 L 410) HEMATOCRIT (BEAKER) (test code = 24.0 % 40.1-51.0 L 411) MEAN CORPUSCULAR VOLUME (BEAKER) 82.8 fL 79.0-92.2 (test code = 753) MEAN CORPUSCULAR HEMOGLOBIN 25.9 pg 25.7-32.2 (BEAKER) (test code = 751) MEAN CORPUSCULAR HEMOGLOBIN CONC 31.3 GM/DL 32.3-36.5 L (BEAKER) (test code = 752) RED CELL DISTRIBUTION WIDTH 21.5 % 11.6-14.4 H (BEAKER) (test code = 412) PLATELET COUNT (BEAKER) (test 302 K/CU MM 150-450 code = 756) MEAN PLATELET VOLUME (BEAKER) 10.6 fL 9.4-12.4 (test code = 754) NUCLEATED RED BLOOD CELLS 0 /100 WBC 0-0 (BEAKER) (test code = 413) NEUTROPHILS RELATIVE PERCENT 61 % (BEAKER) (test code = 429) LYMPHOCYTES RELATIVE PERCENT 16 % (BEAKER) (test code = 430) MONOCYTES RELATIVE PERCENT 13 % (BEAKER) (test code = 431) EOSINOPHILS RELATIVE PERCENT 9 % (BEAKER) (test code = 432) BASOPHILS RELATIVE PERCENT 1 % (BEAKER) (test code = 437) NEUTROPHILS ABSOLUTE COUNT 4.57 K/ L 1.78-5.38 (BEAKER) (test code = 670) LYMPHOCYTES ABSOLUTE COUNT 1.23 K/ L 1.32-3.57 L (BEAKER) (test code = 414) MONOCYTES ABSOLUTE COUNT (BEAKER) 0.94 K/ L 0.30-0.82 H (test code = 415) EOSINOPHILS ABSOLUTE COUNT 0.64 K/ L 0.04-0.54 H (BEAKER) (test code = 416) BASOPHILS ABSOLUTE COUNT (BEAKER) 0.08 K/ L 0.01-0.08 (test code = 417) IMMATURE GRANULOCYTES-RELATIVE 0 % 0-1 PERCENT (BEAKER) (test code = 2801) PROTHROMBIN [id number] 23:21:00 Test Item Value Reference Range Interpretation Comments PROTIME (BEAKER) (test code = 14.3 seconds 11.9-14.2 H 759) INR (BEAKER) (test code = 370) 1.15 <=5.90 Effective 08/02/2018: PT Reference Range ChangeNew: 11.9-14.2 Previous: 11.7- 14.7RECOMMENDED COUMADIN/WARFARIN INR THERAPY RANGESSTANDARD DOSE: 2.0-3.0 Includes: PROPHYLAXIS for venous thrombosis, systemic embolization; TREATMENT for venous thrombosis and/or pulmonary embolus.HIGH RISK: Target INR is2.5-3.5 for patients wiht mechanical heart valves.POCT-GLUCOSE [id number] 22:00:00 Test Item Value Reference Range Interpretation Comments POC-GLUCOSE METER 203 mg/dL 70-110 H : TESTED A T [facility] 6720 (BEAKER) (test code = DASIA SONG [place], 1538) [address]: Contract Engineer/Techni estefani ID = [id number] for MISTI PORTILLO, ROJELIO [employer] CULTURE + SMEAR (NON-SPUTUM)2020-02-25 06:40:00 Test Item Value Reference Range Interpretation Comments CULTURE (BEAKER) No acid-fast (test code = bacilli isolated 1095) in 42 days AFB SMEAR No acid fast (BEAKER) (test bacilli seen code = 994) AFB SMEAR The previously (BEAKER) (test reported resu lt No code = 9948) acid fast bacil li seen is no long er being reported. AFB CULTURE + SMEAR (NON-SPUTUM)2020-02-25 06:40:00 Test Item Value Reference Range Interpretation Comments CULTURE (BEAKER) No acid-fast (test code = bacilli isolated 1095) in 42 days AFB SMEAR No acid fast (BEAKER) (test bacilli seen code = 994) AFB SMEAR The previously (BEAKER) (test reported resu lt No code = 9948) acid fast bacil li seen is no long er being reported. FUNGUS CULTURE + [id number] 16:32:00 Test Item Value Reference Range Interpretation Comments CULTURE (BEAKER) (test No fungus isolated in code = 1095) 28 days FUNGUS SMEAR (BEAKER) No fungal elements seen (test code = 1406) FUNGUS CULTURE + [id number] 16:32:00 Test Item Value Reference Range Interpretation Comments CULTURE (BEAKER) (test No fungus isolated in code = 1095) 28 days FUNGUS SMEAR (BEAKER) <1+ budding yeast (test code = 1406) AFB CULTURE + SMEAR (NON-SPUTUM)2020-01-28 08:48:00 Test Item Value Reference Range Interpretation Comments CULTURE (BEAKER) (test No acid-fast bacilli code = 1095) isolated in 42 days AFB SMEAR (BEAKER) No acid fast bacilli (test code = 994) seen POCT-GLUCOSE [id number] 12:16:00 Test Item Value Reference Range Interpretation Comments POC-GLUCOSE METER 104 mg/dL 70-110 : TESTED A T [facility] 6720 (BEAKER) (test code = [facility] Pick a Student [facility], 1538) [address]: Contract Engineer/Techni estefani ID = [id number] for DA SGUPTA, JAYITA POCT-GLUCOSE [id number] 07:26:00 Test Item Value Reference Range Interpretation Comments POC-GLUCOSE METER 89 mg/dL 70-110 : TESTED A T [facility] 6720 (BEAKER) (test code = [facility] Pick a Student [facility], 1538) [address]: Contract Engineer/Techni estefani ID = [id number] for DASG UPTA, JAYITA SARS-COV2/RT-PCR ([facility])2020-01-22 07:13:00 Test Item Value Reference Range Interpretation Comments SARS-COV2/RT-PCR (test Negative Not Detected, Negative, code = 6039219) See external report for linked test SARS-COV-2 PERFORMING LAB [facility] KEELY (test code = 6117873) Negative result for this test determines that SARS-CoV-2 RNA was not present in the specimen above the Limit of Detection (LOD). However, Negative results do not preclude SARS-CoV-2 infection and should not be used as the sole basis for treatment or patient management decisions. Negative results mustbe combined with clinical observations, patient history, and epidemiological information. A false negative result may occur if a specimen is improperly collected, transported or handled. A false negative result should be considered if patient's recent exposures or clinical presentation indicate that COVID-19 (SARS-CoV-2) is likely and diagnostic tests for other causes of illness are negative. Re-testing should be considered in cases of suspected false negatives.The limit of detection for this assay is 100 copies/mL.This SARS CoV-2 test is a real-time RT-PCR test intended for the qualitative detection of nucleic acid from SARS-CoV-2 in a nasopharyngeal swab specimen collected from individuals susp ected of COVID-19 by their healthcare provider.This test has not been Food and Drug Administration (FDA) cleared or approved. This is a modified version of an approved Emergency Use Authorization (EUA) and is in the process of review by the FDA. Once authorized by the FDA, the issued EUA will be effective until the declaration that circumstances exist justifying the authorization of the emergency use of in vitro diagnostic tests for detection and/or diagnosis of COVID-19 is terminated under Section 564(b)(2) of the Act or the EUA is revoked under Section 564(g) of the Act.Testing was performed using the Giles SARS-CoV-2 assay.Fact Sheet for Healthcare Providers:https://www.molecular.giles/ari/ NB_LRXL-ZaN-2_QBE_Uwrk_Yyctg_20-416771.pdfFact Sheet for Healthcare Patients:https://www.molecular.ab radha/ari/MZ_YQBM-AtE-4_Mgbljka_Pddw_Uhaij_LS_11-995977X3.pdfPerforming Laboratory:[facility] [place] [address] BASIC METABOLIC [id number] 06:27:00 Test Item Value Reference Range Interpretation Comments SODIUM (BEAKER) 137 meq/L 136-145 (test code = 381) POTASSIUM (BEAKER) 4.4 meq/L 3.5-5.1 (test code = 379) CHLORIDE (BEAKER) 98 meq/L 98-107 (test code = 382) CO2 (BEAKER) (test 28 meq/L 22-29 code = 355) BLOOD UREA NITROGEN 26 mg/dL 7-21 H (BEAKER) (test code = 354) CREATININE (BEAKER) 6.10 mg/dL 0.57-1.25 H (test code = 358) GLUCOSE RANDOM 96 mg/dL 70-105 (BEAKER) (test code = 652) CALCIUM (BEAKER) 8.6 mg/dL 8.4-10.2 (test code = 697) EGFR (BEAKER) (test 9 mL/min/1.73 ESTIMAT ED GFR IS code = 1092) sq m NOT ACCURATE CREATININE CLEARANCE IN PREDICTING GLOMERULAR FILTRATION RATE . ESTIMATED GFR I S NOT APPLICABLE FOR DIALYSIS PATIEN TS. Contract Engineer ID - EDASIPOCT-GLUCOSE [id number] 21:15:00 Test Item Value Reference Range Interpretation Comments POC-GLUCOSE METER 123 mg/dL 70-110 H : TESTED A T [facility] 6720 (BEAKER) (test code [facility], = 1538) [address]: Contract Engineer/Techni estefani ID = [id number] for BRADEN SWARTZ HEPATITIS B SURFACE [id number] 18:16:00 Test Item Value Reference Range Interpretation Comments HEPATITIS B SURFACE ANTIGEN (2) Nonreactive Nonreactive (BEAKER) (test code = 2585) Specimen is considered negative for HBsAg.POCT-GLUCOSE [id number] 16:50:00 Test Item Value Reference Range Interpretation Comments POC-GLUCOSE METER 110 mg/dL 70-110 : TESTED A T [facility] 6720 (BEAKER) (test code = [facility] Jose [facility], 1538) [address]: Contract Engineer/Techni estefani ID = [id number] for DOE CALVERT MONISHA HEMODIALYSIS [id number] 15:36:10BZay benavides RN 01/21/2020 3:37 PMTolerated and completed 4 hours No distress noted, asymptomatic. Denies any discomfort and pain.UF fluid removed 3 liters.Secured access with pressure dressing gauze and tape. No further bleeding noted. Report given to primary nurse. Lab Results Component Value Date GLUCOSE 86 01/21/2020 CALCIUM 8.2 (L) 01/21/2020 NA 135 (L) 01/21/2020 K 4.5 01/21/2020 CO2 24 01/21/2020 CL 97 (L) 01/21/2020 BUN 41 (H) 01/21/2020 CREATININE 9.09 (H) 01/21/2020 Lab Results Component Value Date WBC 7.9 01/20/2020 HGB 7.6 (L) 01/20/2020 HCT 25.1 (L) 01/20/2020 MCV 81.2 01/20/2020 PLT 338 01/20/2020 Lab Results Component Value Date HEPBSAG [facility] [id number] 07:55:00 Test Item Value Reference Range Interpretation Comments POC-GLUCOSE METER 75 mg/dL 70-110 : TESTED A T [facility] 6720 (BEAKER) (test code = DASIA SONG [place], 1538) [address]: Contract Engineer/Techni estefani ID = [id number] for LATOYA DAVILA MONISHA BASIC METABOLIC [id number] 05:59:00 Test Item Value Reference Range Interpretation Comments SODIUM (BEAKER) 135 meq/L 136-145 L (test code = 381) POTASSIUM (BEAKER) 4.5 meq/L 3.5-5.1 (test code = 379) CHLORIDE (BEAKER) 97 meq/L 98-107 L (test code = 382) CO2 (BEAKER) (test 24 meq/L 22-29 code = 355) BLOOD UREA NITROGEN 41 mg/dL 7-21 H (BEAKER) (test code = 354) CREATININE (BEAKER) 9.09 mg/dL 0.57-1.25 H (test code = 358) GLUCOSE RANDOM 86 mg/dL 70-105 (BEAKER) (test code = 652) CALCIUM (BEAKER) 8.2 mg/dL 8.4-10.2 L (test code = 697) EGFR (BEAKER) (test 6 mL/min/1.73 ESTIMAT ED GFR IS code = 1092) sq m NOT ACCURATE CREATININE CLEARANCE IN PREDICTING GLOMERULAR FILTRATION RATE . ESTIMATED GFR I S NOT APPLICABLE FOR DIALYSIS PATIEN TS. Contract Engineer ID - EDASIPOCT-GLUCOSE [id number] 19:48:00 Test Item Value Reference Range Interpretation Comments POC-GLUCOSE METER 133 mg/dL 70-110 H : TESTED A T [facility] 6720 (BEAKER) (test code = [facility], 153) [address]: Contract Engineer/Techni estefani ID = [id number] for MALGORZATA MORRISON (V)CHRIS POCT-GLUCOSE [id number] 16:50:00 Test Item Value Reference Range Interpretation Comments POC-GLUCOSE METER 106 mg/dL 70-110 : [facility] (BEAKER) (test code = [facility], 153) [address]: Contract Engineer/Techni estefani ID = [id number] for GISELA JACINTO, SHABNAM POCT-GLUCOSE [id number] 11:54:00 Test Item Value Reference Range Interpretation Comments POC-GLUCOSE METER 104 mg/dL 70-110 : TESTED A T [facility] 6720 (BEAKER) (test code = [facility], 153) [address]: Contract Engineer/Techni estefani ID = [id number] for [place], SHABNAM POCT-GLUCOSE [id number] 07:53:00 Test Item Value Reference Range Interpretation Comments POC-GLUCOSE METER 88 mg/dL 70-110 : PrevTst on Ambulance: (BEAKER) (test code = TESTED AT [place] [address] 1538) [facility], [address]: Contract Engineer/Techni estefani ID = [id number] for SHABNAM KUMAR BASIC METABOLIC [id number] 04:56:00 Test Item Value Reference Range Interpretation Comments SODIUM (BEAKER) 137 meq/L 136-145 (test code = 381) POTASSIUM (BEAKER) 4.5 meq/L 3.5-5.1 (test code = 379) CHLORIDE (BEAKER) 99 meq/L 98-107 (test code = 382) CO2 (BEAKER) (test 25 meq/L 22-29 code = 355) BLOOD UREA NITROGEN 30 mg/dL 7-21 H (BEAKER) (test code = 354) CREATININE (BEAKER) 7.34 mg/dL 0.57-1.25 H (test code = 358) GLUCOSE RANDOM 99 mg/dL 70-105 (BEAKER) (test code = 652) CALCIUM (BEAKER) 8.4 mg/dL 8.4-10.2 (test code = 697) EGFR (BEAKER) (test 8 mL/min/1.73 ESTIMAT ED GFR IS code = 1092) sq m NOT ACCURATE CREATININE CLEARANCE IN PREDICTING GLOMERULAR FILTRATION RATE . ESTIMATED GFR I S NOT APPLICABLE FOR DIALYSIS PATIEN TS. Contract Engineer ID - EDASICBC W/PLT COUNT & AUTO [id number] 04:15:00 Test Item Value Reference Range Interpretation Comments WHITE BLOOD CELL COUNT (BEAKER) 7.9 K/ L 3.5-10.5 (test code = 775) RED BLOOD CELL COUNT (BEAKER) 3.09 M/ L 4.63-6.08 L (test code = 761) HEMOGLOBIN (BEAKER) (test code = 7.6 GM/DL 13.7-17.5 L 410) HEMATOCRIT (BEAKER) (test code = 25.1 % 40.1-51.0 L 411) MEAN CORPUSCULAR VOLUME (BEAKER) 81.2 fL 79.0-92.2 (test code = 753) MEAN CORPUSCULAR HEMOGLOBIN 24.6 pg 25.7-32.2 L (BEAKER) (test code = 751) MEAN CORPUSCULAR HEMOGLOBIN CONC 30.3 GM/DL 32.3-36.5 L (BEAKER) (test code = 752) RED CELL DISTRIBUTION WIDTH 18.9 % 11.6-14.4 H (BEAKER) (test code = 412) PLATELET COUNT (BEAKER) (test 338 K/CU MM 150-450 code = 756) MEAN PLATELET VOLUME (BEAKER) 8.9 fL 9.4-12.4 L (test code = 754) NUCLEATED RED BLOOD CELLS 0 /100 WBC 0-0 (BEAKER) (test code = 413) NEUTROPHILS RELATIVE PERCENT 71 % (BEAKER) (test code = 429) LYMPHOCYTES RELATIVE PERCENT 16 % (BEAKER) (test code = 430) MONOCYTES RELATIVE PERCENT 8 % (BEAKER) (test code = 431) EOSINOPHILS RELATIVE PERCENT 4 % (BEAKER) (test code = 432) BASOPHILS RELATIVE PERCENT 1 % (BEAKER) (test code = 437) NEUTROPHILS ABSOLUTE COUNT 5.56 K/ L 1.78-5.38 H (BEAKER) (test code = 670) LYMPHOCYTES ABSOLUTE COUNT 1.22 K/ L 1.32-3.57 L (BEAKER) (test code = 414) MONOCYTES ABSOLUTE COUNT (BEAKER) 0.66 K/ L 0.30-0.82 (test code = 415) EOSINOPHILS ABSOLUTE COUNT 0.33 K/ L 0.04-0.54 (BEAKER) (test code = 416) BASOPHILS ABSOLUTE COUNT (BEAKER) 0.08 K/ L 0.01-0.08 (test code = 417) IMMATURE GRANULOCYTES-RELATIVE 0 % 0-1 PERCENT (BEAKER) (test code = 2801) POCT-GLUCOSE [id number] 20:55:00 Test Item Value Reference Range Interpretation Comments POC-GLUCOSE METER 128 mg/dL 70-110 H : TESTED A T [facility] (BEAKER) (test code = DASIA Garcia [place], 1538) [address]: Contract Engineer/Techni estefani ID = [id number] for FE RNANDO (V), KARI POCT-GLUCOSE [id number] 17:32:00 Test Item Value Reference Range Interpretation Comments POC-GLUCOSE METER 116 mg/dL 70-110 H : TESTED A T [facility] [address] (BEAKER) ([place], [address]: code = 1538) Contract Engineer/Techni estefani ID = [id number] for SINDI SANCHEZ IN Hepatitis B surface [id number] 07:59:00 Test Item Value Reference Range Interpretation Comments Hep B S Ab (test code <8.0 See_Comment [Auto mated = 83940-0) message] The system which generated this result transmit doris reference range : <8.0 mIU/mL. e reference range was not used to interpret this result as normal/abnormal . MITCHELL (test code = MITCHELL) Contract Engineer ID - ADMIN Lab Interpretation Normal (test code = 46252-0) [facility] [id number] 07:59:00 Test Item Value Reference Range Interpretation Comments HEPATITIS B SURFACE ANTIBODY < mIU/mL <8.0 (BEAKER) (test code = 647) Contract Engineer ID - ADMINBASIC METABOLIC [id number] 06:46:00 Test Item Value Reference Range Interpretation Comments SODIUM (BEAKER) 137 meq/L 136-145 (test code = 381) POTASSIUM (BEAKER) 4.4 meq/L 3.5-5.1 (test code = 379) CHLORIDE (BEAKER) 99 meq/L 98-107 (test code = 382) CO2 (BEAKER) (test 27 meq/L 22-29 code = 355) BLOOD UREA NITROGEN 18 mg/dL 7-21 (BEAKER) (test code = 354) CREATININE (BEAKER) 5.58 mg/dL 0.57-1.25 H (test code = 358) GLUCOSE RANDOM 84 mg/dL 70-105 (BEAKER) (test code = 652) CALCIUM (BEAKER) 8.4 mg/dL 8.4-10.2 (test code = 697) EGFR (BEAKER) (test 10 mL/min/1.73 ESTIMA DORIS GFR IS code = 1092) sq m NOT ACCURATE CREATININE CLEARANCE IN PREDICTING GLOMERULAR FILTRATION RATE . ESTIMATED GFR I S NOT APPLICABLE FOR DIALYSIS PATIEN TS. Contract Engineer ID - ADMINCBC W/PLT COUNT & AUTO [id number] 05:21:00 Test Item Value Reference Range Interpretation Comments WHITE BLOOD CELL COUNT (BEAKER) 8.8 K/ L 3.5-10.5 (test code = 775) RED BLOOD CELL COUNT (BEAKER) 3.27 M/ L 4.63-6.08 L (test code = 761) HEMOGLOBIN (BEAKER) (test code = 8.1 GM/DL 13.7-17.5 L 410) HEMATOCRIT (BEAKER) (test code = 27.0 % 40.1-51.0 L 411) MEAN CORPUSCULAR VOLUME (BEAKER) 82.6 fL 79.0-92.2 (test code = 753) MEAN CORPUSCULAR HEMOGLOBIN 24.8 pg 25.7-32.2 L (BEAKER) (test code = 751) MEAN CORPUSCULAR HEMOGLOBIN CONC 30.0 GM/DL 32.3-36.5 L (BEAKER) (test code = 752) RED CELL DISTRIBUTION WIDTH 18.6 % 11.6-14.4 H (BEAKER) (test code = 412) PLATELET COUNT (BEAKER) (test 390 K/CU MM 150-450 code = 756) MEAN PLATELET VOLUME (BEAKER) 9.1 fL 9.4-12.4 L (test code = 754) NUCLEATED RED BLOOD CELLS 0 /100 WBC 0-0 (BEAKER) (test code = 413) NEUTROPHILS RELATIVE PERCENT 74 % (BEAKER) (test code = 429) LYMPHOCYTES RELATIVE PERCENT 11 % (BEAKER) (test code = 430) MONOCYTES RELATIVE PERCENT 9 % (BEAKER) (test code = 431) EOSINOPHILS RELATIVE PERCENT 5 % (BEAKER) (test code = 432) BASOPHILS RELATIVE PERCENT 1 % (BEAKER) (test code = 437) NEUTROPHILS ABSOLUTE COUNT 6.52 K/ L 1.78-5.38 H (BEAKER) (test code = 670) LYMPHOCYTES ABSOLUTE COUNT 0.99 K/ L 1.32-3.57 L (BEAKER) (test code = 414) MONOCYTES ABSOLUTE COUNT (BEAKER) 0.77 K/ L 0.30-0.82 (test code = 415) EOSINOPHILS ABSOLUTE COUNT 0.40 K/ L 0.04-0.54 (BEAKER) (test code = 416) BASOPHILS ABSOLUTE COUNT (BEAKER) 0.08 K/ L 0.01-0.08 (test code = 417) IMMATURE GRANULOCYTES-RELATIVE 1 % 0-1 PERCENT (BEAKER) (test code = 2801) Hepatitis B core antibody, [id number] 03:01:00 Test Item Value Reference Range Interpretation Comments Hep B Core Total Ab (test Nonreactive Nonreactive code = 71715-3) MITCHELL (test code = MITCHELL) Contract Engineer ID - ADMIN Lab Interpretation (test Normal code = 97964-3) [facility], [id number] 03:01:00 Test Item Value Reference Range Interpretation Comments HEPATITIS B CORE TOTAL ANTIBODY Nonreactive Nonreactive (BEAKER) (test code = 497) Contract Engineer ID - ADMINHEMODIALYSIS [id number] 23:29:32Avery Reeves RN 01/18/2020 11:31 PMTolerated and completed 3 hours No distress noted, asympto matic. Denies any discomfort and pain.UF fluid removed 2 liters.Secured access with pressure dressing gauze and tape. No further bleeding nted. Report given to primary nurse Latest lab result:Lab Results Component Value Date WBC 6.8 01/18/2020 HGB 7.5 (L) 01/18/2020 HCT 24.7 (L) 01/18/2020 MCV 82.6 01/18/2020 PLT 429 01/18/2020 Lab Results Component Value Date GLUCOSE 89 01/18/2020 CALCIUM 8.1 (L) 01/18/2020 NA 136 01/18/2020 K 4.4 01/18/2020 CO2 24 01/18/2020 CL 99 01/18/2020 BUN 27 (H) 01/18/2020 CREATININE 7.25 (H) 01/18/2020 Avery OAKLEY, RN [id number] Adult [address] [place], [place] [address]POCT-GLUCOSE [id number] 22:59:00 Test Item Value Reference Range Interpretation Comments POC-GLUCOSE METER 110 mg/dL 70-110 : TESTED A T [facility] 6720 ([facility]) (test code = [facility], 1538) [address]: Contract Engineer/Techni estefani ID = [id number] for Avery Levy POCT-GLUCOSE [id number] 12:01:00 Test Item Value Reference Range Interpretation Comments POC-GLUCOSE METER 107 mg/dL 70-110 : [facility] RN[facility]: [facility] (test code = TESTED AT [facility] 67[address] 1538) [facility], [address]: Contract Engineer/Techni estefani ID = [id number] for HADLEY MELISSA POCT-GLUCOSE [id number] 07:44:00 Test Item Value Reference Range Interpretation Comments POC-GLUCOSE METER 95 mg/dL 70-110 : Notified RN/MD: TESTED (BEAKER) (test code = AT [facility] 67[address] [facility] 1538) [facility], [address]: Contract Engineer/Techni estefani ID = [id number] for KELSI ELIAS, HADLEY BASIC METABOLIC [id number] 07:25:00 Test Item Value Reference Range Interpretation Comments SODIUM (BEAKER) 136 meq/L 136-145 (test code = 381) POTASSIUM (BEAKER) 4.4 meq/L 3.5-5.1 (test code = 379) CHLORIDE (BEAKER) 99 meq/L 98-107 (test code = 382) CO2 (BEAKER) (test 24 meq/L 22-29 code = 355) BLOOD UREA NITROGEN 27 mg/dL 7-21 H (BEAKER) (test code = 354) CREATININE (BEAKER) 7.25 mg/dL 0.57-1.25 H (test code = 358) GLUCOSE RANDOM 89 mg/dL 70-105 (BEAKER) (test code = 652) CALCIUM (BEAKER) 8.1 mg/dL 8.4-10.2 L (test code = 697) EGFR (BEAKER) (test 8 mL/min/1.73 ESTIMAT ED GFR IS code = 1092) sq m NOT ACCURATE CREATININE CLEARANCE IN PREDICTING GLOMERULAR FILTRATION RATE . ESTIMATED GFR I S NOT APPLICABLE FOR DIALYSIS PATIEN TS. Contract Engineer ID - MAR CCBC W/PLT COUNT & AUTO [id number] 04:39:00 Test Item Value Reference Range Interpretation Comments WHITE BLOOD CELL COUNT (BEAKER) 6.8 K/ L 3.5-10.5 (test code = 775) RED BLOOD CELL COUNT (BEAKER) 2.99 M/ L 4.63-6.08 L (test code = 761) HEMOGLOBIN (BEAKER) (test code = 7.5 GM/DL 13.7-17.5 L 410) HEMATOCRIT (BEAKER) (test code = 24.7 % 40.1-51.0 L 411) MEAN CORPUSCULAR VOLUME (BEAKER) 82.6 fL 79.0-92.2 (test code = 753) MEAN CORPUSCULAR HEMOGLOBIN 25.1 pg 25.7-32.2 L (BEAKER) (test code = 751) MEAN CORPUSCULAR HEMOGLOBIN CONC 30.4 GM/DL 32.3-36.5 L (BEAKER) (test code = 752) RED CELL DISTRIBUTION WIDTH 18.7 % 11.6-14.4 H (BEAKER) (test code = 412) PLATELET COUNT (BEAKER) (test 429 K/CU MM 150-450 code = 756) MEAN PLATELET VOLUME (BEAKER) 9.3 fL 9.4-12.4 L (test code = 754) NUCLEATED RED BLOOD CELLS 0 /100 WBC 0-0 (BEAKER) (test code = 413) NEUTROPHILS RELATIVE PERCENT 59 % (BEAKER) (test code = 429) LYMPHOCYTES RELATIVE PERCENT 21 % (BEAKER) (test code = 430) MONOCYTES RELATIVE PERCENT 11 % (BEAKER) (test code = 431) EOSINOPHILS RELATIVE PERCENT 6 % (BEAKER) (test code = 432) BASOPHILS RELATIVE PERCENT 1 % (BEAKER) (test code = 437) NEUTROPHILS ABSOLUTE COUNT 4.02 K/ L 1.78-5.38 (BEAKER) (test code = 670) LYMPHOCYTES ABSOLUTE COUNT 1.45 K/ L 1.32-3.57 (BEAKER) (test code = 414) MONOCYTES ABSOLUTE COUNT (BEAKER) 0.76 K/ L 0.30-0.82 (test code = 415) EOSINOPHILS ABSOLUTE COUNT 0.42 K/ L 0.04-0.54 (BEAKER) (test code = 416) BASOPHILS ABSOLUTE COUNT (BEAKER) 0.09 K/ L 0.01-0.08 H (test code = 417) IMMATURE GRANULOCYTES-RELATIVE 1 % 0-1 PERCENT (BEAKER) (test code = 2801) POCT-GLUCOSE [id number] 22:19:00 Test Item Value Reference Range Interpretation Comments POC-GLUCOSE METER 115 mg/dL 70-110 H : TESTED A T [facility] 6720 (BEAKER) (test code = [facility]) [address]: Contract Engineer/Techni estefani ID = [id number] for Wi sallie, Otelia POCT-GLUCOSE [id number] 16:56:00 Test Item Value Reference Range Interpretation Comments POC-GLUCOSE METER 106 mg/dL 70-110 : TESTED A T [facility] 6720 (BEAKER) (test code = [facility], 153) [address]: Contract Engineer/Techni setefani ID = [id number] for RI MARIE, ANNMARIE POCT-GLUCOSE [id number] 12:23:00 Test Item Value Reference Range Interpretation Comments POC-GLUCOSE METER 130 mg/dL 70-110 H : TESTED A T [facility] 6720 (BEAKER) (test code = [facility], 153) [address]: Contract Engineer/Techni estefani ID = [id number] for RI VES, ANNMARIE POCT-GLUCOSE [id number] 09:12:00 Test Item Value Reference Range Interpretation Comments POC-GLUCOSE METER 96 mg/dL 70-110 : TESTED A T [facility] 6720 (BEAKER) (test code = [facility]) [address]: Contract Engineer/Techni estefani ID = [id number] for LIZZ ER, STEVE BASIC METABOLIC [id number] 06:45:00 Test Item Value Reference Range Interpretation Comments SODIUM (BEAKER) 140 meq/L 136-145 (test code = 381) POTASSIUM (BEAKER) 4.3 meq/L 3.5-5.1 (test code = 379) CHLORIDE (BEAKER) 101 meq/L 98-107 (test code = 382) CO2 (BEAKER) (test 30 meq/L 22-29 H code = 355) BLOOD UREA NITROGEN 18 mg/dL 7-21 (BEAKER) (test code = 354) CREATININE (BEAKER) 5.59 mg/dL 0.57-1.25 H (test code = 358) GLUCOSE RANDOM 91 mg/dL 70-105 (BEAKER) (test code = 652) CALCIUM (BEAKER) 8.5 mg/dL 8.4-10.2 (test code = 697) EGFR (BEAKER) (test 10 mL/min/1.73 ESTIMA DORIS GFR IS code = 1092) sq m NOT ACCURATE CREATININE CLEARANCE IN PREDICTING GLOMERULAR FILTRATION RATE . ESTIMATED GFR I S NOT APPLICABLE FOR DIALYSIS PATIEN TS. Contract Engineer ID - JAQUELINE MCBC W/PLT COUNT & AUTO [id number] 05:59:00 Test Item Value Reference Range Interpretation Comments WHITE BLOOD CELL COUNT (BEAKER) 7.2 K/ L 3.5-10.5 (test code = 775) RED BLOOD CELL COUNT (BEAKER) 3.16 M/ L 4.63-6.08 L (test code = 761) HEMOGLOBIN (BEAKER) (test code = 7.6 GM/DL 13.7-17.5 L 410) HEMATOCRIT (BEAKER) (test code = 25.8 % 40.1-51.0 L 411) MEAN CORPUSCULAR VOLUME (BEAKER) 81.6 fL 79.0-92.2 (test code = 753) MEAN CORPUSCULAR HEMOGLOBIN 24.1 pg 25.7-32.2 L (BEAKER) (test code = 751) MEAN CORPUSCULAR HEMOGLOBIN CONC 29.5 GM/DL 32.3-36.5 L (BEAKER) (test code = 752) RED CELL DISTRIBUTION WIDTH 18.6 % 11.6-14.4 H (BEAKER) (test code = 412) PLATELET COUNT (BEAKER) (test 408 K/CU MM 150-450 code = 756) MEAN PLATELET VOLUME (BEAKER) 8.9 fL 9.4-12.4 L (test code = 754) NUCLEATED RED BLOOD CELLS 0 /100 WBC 0-0 (BEAKER) (test code = 413) NEUTROPHILS RELATIVE PERCENT 66 % (BEAKER) (test code = 429) LYMPHOCYTES RELATIVE PERCENT 16 % (BEAKER) (test code = 430) MONOCYTES RELATIVE PERCENT 12 % (BEAKER) (test code = 431) EOSINOPHILS RELATIVE PERCENT 5 % (BEAKER) (test code = 432) BASOPHILS RELATIVE PERCENT 1 % (BEAKER) (test code = 437) NEUTROPHILS ABSOLUTE COUNT 4.74 K/ L 1.78-5.38 (BEAKER) (test code = 670) LYMPHOCYTES ABSOLUTE COUNT 1.16 K/ L 1.32-3.57 L (BEAKER) (test code = 414) MONOCYTES ABSOLUTE COUNT (BEAKER) 0.83 K/ L 0.30-0.82 H (test code = 415) EOSINOPHILS ABSOLUTE COUNT 0.36 K/ L 0.04-0.54 (BEAKER) (test code = 416) BASOPHILS ABSOLUTE COUNT (BEAKER) 0.07 K/ L 0.01-0.08 (test code = 417) IMMATURE GRANULOCYTES-RELATIVE 0 % 0-1 PERCENT (BEAKER) (test code = 2801) POCT-GLUCOSE [id number] 22:30:00 Test Item Value Reference Range Interpretation Comments POC-GLUCOSE METER 126 mg/dL 70-110 H : TESTED A T [facility] 6720 (BEAKER) (test code = [facility], 153) [address]: Contract Engineer/Techni estefani ID = [id number] for Wi alyciaiams, Otelia ANAEROBIC [id number] 19:52:00 Test Item Value Reference Range Interpretation Comments CULTURE (BEAKER) (test No anaerobes isolated code = 1095) ANAEROBIC [id number] 19:52:00 Test Item Value Reference Range Interpretation Comments CULTURE (BEAKER) (test No anaerobes isolated code = 1095) POCT-GLUCOSE [id number] 16:58:00 Test Item Value Reference Range Interpretation Comments POC-GLUCOSE METER 103 mg/dL 70-110 : TESTED A T [facility] 6720 (BEAKER) (test code = [facility], 153) [address]: Contract Engineer/Techni estefani ID = [id number] for TUSHAR PEMerly, EVONNE VIAL POCT-GLUCOSE [id number] 11:48:00 Test Item Value Reference Range Interpretation Comments POC-GLUCOSE METER 140 mg/dL 70-110 H : TESTED A T [facility] 6720 (BEAKER) (test code = [facility] Jose [facility], 1538) [address]: Contract Engineer/Techni estefani ID = [id number] for Ca Olga grissom POCT-GLUCOSE [id number] 07:22:00 Test Item Value Reference Range Interpretation Comments POC-GLUCOSE METER 96 mg/dL 70-110 : TESTED A T [facility] 6720 (BEAKER) (test code = [facility] Jose [facility], 1538) [address]: Contract Engineer/Techni estefani ID = [id number] for Scot Ambar velásquez (cont ract) BASIC METABOLIC [id number] 06:35:00 Test Item Value Reference Range Interpretation Comments SODIUM (BEAKER) 138 meq/L 136-145 (test code = 381) POTASSIUM (BEAKER) 4.3 meq/L 3.5-5.1 (test code = 379) CHLORIDE (BEAKER) 102 meq/L 98-107 (test code = 382) CO2 (BEAKER) (test 26 meq/L 22-29 code = 355) BLOOD UREA NITROGEN 29 mg/dL 7-21 H (BEAKER) (test code = 354) CREATININE (BEAKER) 7.40 mg/dL 0.57-1.25 H (test code = 358) GLUCOSE RANDOM 108 mg/dL 70-105 H (BEAKER) (test code = 652) CALCIUM (BEAKER) 8.8 mg/dL 8.4-10.2 (test code = 697) EGFR (BEAKER) (test 8 mL/min/1.73 ESTIMAT ED GFR IS code = 1092) sq m NOT ACCURATE CREATININE CLEARANCE IN PREDICTING GLOMERULAR FILTRATION RATE . ESTIMATED GFR I S NOT APPLICABLE FOR DIALYSIS PATIEN TS. Contract Engineer ID - EDASICBC W/PLT COUNT & AUTO [id number] 06:02:00 Test Item Value Reference Range Interpretation Comments WHITE BLOOD CELL COUNT (BEAKER) 7.1 K/ L 3.5-10.5 (test code = 775) RED BLOOD CELL COUNT (BEAKER) 2.90 M/ L 4.63-6.08 L (test code = 761) HEMOGLOBIN (BEAKER) (test code = 7.0 GM/DL 13.7-17.5 L 410) HEMATOCRIT (BEAKER) (test code = 24.0 % 40.1-51.0 L 411) MEAN CORPUSCULAR VOLUME (BEAKER) 82.8 fL 79.0-92.2 (test code = 753) MEAN CORPUSCULAR HEMOGLOBIN 24.1 pg 25.7-32.2 L (BEAKER) (test code = 751) MEAN CORPUSCULAR HEMOGLOBIN CONC 29.2 GM/DL 32.3-36.5 L (BEAKER) (test code = 752) RED CELL DISTRIBUTION WIDTH 18.6 % 11.6-14.4 H (BEAKER) (test code = 412) PLATELET COUNT (BEAKER) (test 390 K/CU MM 150-450 code = 756) MEAN PLATELET VOLUME (BEAKER) 9.0 fL 9.4-12.4 L (test code = 754) NUCLEATED RED BLOOD CELLS 0 /100 WBC 0-0 (BEAKER) (test code = 413) NEUTROPHILS RELATIVE PERCENT 66 % (BEAKER) (test code = 429) LYMPHOCYTES RELATIVE PERCENT 16 % (BEAKER) (test code = 430) MONOCYTES RELATIVE PERCENT 12 % (BEAKER) (test code = 431) EOSINOPHILS RELATIVE PERCENT 5 % (BEAKER) (test code = 432) BASOPHILS RELATIVE PERCENT 1 % (BEAKER) (test code = 437) NEUTROPHILS ABSOLUTE COUNT 4.64 K/ L 1.78-5.38 (BEAKER) (test code = 670) LYMPHOCYTES ABSOLUTE COUNT 1.09 K/ L 1.32-3.57 L (BEAKER) (test code = 414) MONOCYTES ABSOLUTE COUNT (BEAKER) 0.84 K/ L 0.30-0.82 H (test code = 415) EOSINOPHILS ABSOLUTE COUNT 0.36 K/ L 0.04-0.54 (BEAKER) (test code = 416) BASOPHILS ABSOLUTE COUNT (BEAKER) 0.08 K/ L 0.01-0.08 (test code = 417) IMMATURE GRANULOCYTES-RELATIVE 1 % 0-1 PERCENT (BEAKER) (test code = 2801) POCT-GLUCOSE [id number] 22:01:00 Test Item Value Reference Range Interpretation Comments POC-GLUCOSE METER 151 mg/dL 70-110 H : TESTED A T [facility] 6720 (BEAKER) (test code = DASIA Garcia [facility], 153) [address]: Contract Engineer/Techni estefani ID = [id number] for MARCY MUIR POCT-GLUCOSE [id number] 17:02:00 Test Item Value Reference Range Interpretation Comments POC-GLUCOSE METER 121 mg/dL 70-110 H : TESTED A T [facility] 6720 (BEAKER) (test code = DASIA Garcia [facility], 153) [address]: Contract Engineer/Techni estefani ID = [id number] for EDSON MEJIA POCT-GLUCOSE [id number] 10:53:00 Test Item Value Reference Range Interpretation Comments POC-GLUCOSE METER 114 mg/dL 70-110 H : TESTED A T [facility] 6720 (BEAKER) (test code = DASIA Garcia [facility], 153) [address]: Contract Engineer/Techni estefani ID = [id number] for EDSON MEJIA SURGICALLY OBTAINED CULTURE + GRAM [id number] 09:02:00 Test Item Value Reference Range Interpretation Comments CULTURE (BEAKER) SAME ORGANISM HAS A 1+ Garrett e organism (test code = BEEN ISOLATED FROM has been isolated 1094) CULTURES(S) OF THE from cult ures(s) of SAME BODY SITE the same body site WITHIN 3 DAYS. within 3 days . REPEAT Repeat IDENTIFICATION AND identific ation and SUSCEPT. TESTING susceptibil ity PERFORMED ONLY testing perfo rmed AFTER CONSULTATION only afte r WITH THE CLINICAL consultati on with MICROBIOLOGY LAB the [facility].Refe r to previous cultur e ofPseudomonas aeruginosa Ceftazidime/Avib S actam (test code = 250) Ceftolozane/Tazo S bactam (test code = 249) Meropenem/Vaborb actam (test code = 253) CULTURE (BEAKER) A <1+ Escheri cayden (test code = coliNon-viable for 1095) susceptibility CULTURE (BEAKER) VANCOMYCIN A <1+ Vancomy greyson (test code = RESISTANT resistant 1094) ENTEROCOCCUS Enterococcus FAECIUM faecium Ampicillin (test R code = 26) Linezolid (test S code = 40) Vancomycin (test R code = 13) Daptomycin (test Susceptible >4-4 code = 59) , Dose Dependent Susceptible <=4 or >4 , Re GRAM STAIN No white blood RESULT (BEAKER) cells seen (test code = 1123) GRAM STAIN <1+ gram negative RESULT (BEAKER) rods (test code = 253697) POCT-GLUCOSE [id number] 07:42:00 Test Item Value Reference Range Interpretation Comments POC-GLUCOSE METER 85 mg/dL 70-110 : TESTED A T [facility] 6720 (BEAKER) (test code = [facility] [place], 1538) [address]: Contract Engineer/Techni estefani ID = [id number] for EDSON ZARAGOZA BASIC METABOLIC [id number] 06:13:00 Test Item Value Reference Range Interpretation Comments SODIUM (BEAKER) 139 meq/L 136-145 (test code = 381) POTASSIUM (BEAKER) 4.2 meq/L 3.5-5.1 Specimen slightly (test code = 379) hemolyzed CHLORIDE (BEAKER) 102 meq/L 98-107 (test code = 382) CO2 (BEAKER) (test 26 meq/L 22-29 code = 355) BLOOD UREA NITROGEN 17 mg/dL 7-21 (BEAKER) (test code = 354) CREATININE (BEAKER) 5.14 mg/dL 0.57-1.25 H Specimen slightly (test code = 358) hemolyzed GLUCOSE RANDOM 91 mg/dL 70-105 (BEAKER) (test code = 652) CALCIUM (BEAKER) 8.9 mg/dL 8.4-10.2 (test code = 697) EGFR (BEAKER) (test 12 mL/min/1.73 ESTIMA DORIS GFR IS code = 1092) sq m NOT ACCURATE CREATININE CLEARANCE IN PREDICTING GLOMERULAR FILTRATION RATE . ESTIMATED GFR I S NOT APPLICABLE FOR DIALYSIS PATIEN TS. Contract Engineer ID - EDASICBC W/PLT COUNT & AUTO [id number] 05:33:00 Test Item Value Reference Range Interpretation Comments WHITE BLOOD CELL COUNT (BEAKER) 8.1 K/ L 3.5-10.5 (test code = 775) RED BLOOD CELL COUNT (BEAKER) 2.93 M/ L 4.63-6.08 L (test code = 761) HEMOGLOBIN (BEAKER) (test code = 7.2 GM/DL 13.7-17.5 L 410) HEMATOCRIT (BEAKER) (test code = 23.9 % 40.1-51.0 L 411) MEAN CORPUSCULAR VOLUME (BEAKER) 81.6 fL 79.0-92.2 (test code = 753) MEAN CORPUSCULAR HEMOGLOBIN 24.6 pg 25.7-32.2 L (BEAKER) (test code = 751) MEAN CORPUSCULAR HEMOGLOBIN CONC 30.1 GM/DL 32.3-36.5 L (BEAKER) (test code = 752) RED CELL DISTRIBUTION WIDTH 18.4 % 11.6-14.4 H (BEAKER) (test code = 412) PLATELET COUNT (BEAKER) (test 398 K/CU MM 150-450 code = 756) MEAN PLATELET VOLUME (BEAKER) 9.0 fL 9.4-12.4 L (test code = 754) NUCLEATED RED BLOOD CELLS 0 /100 WBC 0-0 (BEAKER) (test code = 413) NEUTROPHILS RELATIVE PERCENT 67 % (BEAKER) (test code = 429) LYMPHOCYTES RELATIVE PERCENT 15 % (BEAKER) (test code = 430) MONOCYTES RELATIVE PERCENT 10 % (BEAKER) (test code = 431) EOSINOPHILS RELATIVE PERCENT 6 % (BEAKER) (test code = 432) BASOPHILS RELATIVE PERCENT 1 % (BEAKER) (test code = 437) NEUTROPHILS ABSOLUTE COUNT 5.46 K/ L 1.78-5.38 H (BEAKER) (test code = 670) LYMPHOCYTES ABSOLUTE COUNT 1.23 K/ L 1.32-3.57 L (BEAKER) (test code = 414) MONOCYTES ABSOLUTE COUNT (BEAKER) 0.80 K/ L 0.30-0.82 (test code = 415) EOSINOPHILS ABSOLUTE COUNT 0.49 K/ L 0.04-0.54 (BEAKER) (test code = 416) BASOPHILS ABSOLUTE COUNT (BEAKER) 0.08 K/ L 0.01-0.08 (test code = 417) IMMATURE GRANULOCYTES-RELATIVE 1 % 0-1 PERCENT (BEAKER) (test code = 2801) POCT-GLUCOSE [id number] 22:55:00 Test Item Value Reference Range Interpretation Comments POC-GLUCOSE METER 91 mg/dL 70-110 : TESTED A T [facility] 6720 (BEAKER) (test code = [facility] [place], 1538) [address]: Contract Engineer/Techni estefani ID = [id number] for DARRELL LUDWIG POCT-GLUCOSE [id number] 16:20:00 Test Item Value Reference Range Interpretation Comments POC-GLUCOSE METER 123 mg/dL 70-110 H : TESTED A T [facility] 6720 (BEAKER) (test code = [facility], 1538) [address]: Contract Engineer/Techni estefani ID = [id number] for REJI SNEED POCT-GLUCOSE [id number] 11:41:00 Test Item Value Reference Range Interpretation Comments POC-GLUCOSE METER 142 mg/dL 70-110 H : TESTED A T [facility] 6720 (BEAKER) (test code = [facility], 1538) [address]: Contract Engineer/Techni estefani ID = [id number] for REJI SNEED POCT-GLUCOSE [id number] 09:19:00 Test Item Value Reference Range Interpretation Comments POC-GLUCOSE METER 115 mg/dL 70-110 H : TESTED A T [facility] 6720 (BEAKER) (test code = [facility] [place], 1538) [id number]: Contract Engineer/Techni estefani ID = [id number] for REJI SNEED BASIC METABOLIC [id number] 06:17:00 Test Item Value Reference Range Interpretation Comments SODIUM (BEAKER) 136 meq/L 136-145 (test code = 381) POTASSIUM (BEAKER) 4.3 meq/L 3.5-5.1 (test code = 379) CHLORIDE (BEAKER) 101 meq/L 98-107 (test code = 382) CO2 (BEAKER) (test 22 meq/L 22-29 code = 355) BLOOD UREA NITROGEN 34 mg/dL 7-21 H (BEAKER) (test code = 354) CREATININE (BEAKER) 8.31 mg/dL 0.57-1.25 H (test code = 358) GLUCOSE RANDOM 106 mg/dL 70-105 H (BEAKER) (test code = 652) CALCIUM (BEAKER) 8.0 mg/dL 8.4-10.2 L (test code = 697) EGFR (BEAKER) (test 7 mL/min/1.73 ESTIMAT ED GFR IS code = 1092) sq m NOT ACCURATE CREATININE CLEARANCE IN PREDICTING GLOMERULAR FILTRATION RATE . ESTIMATED GFR I S NOT APPLICABLE FOR DIALYSIS PATIEN TS. Contract Engineer ID - JAQUELINE [facility] W/PLT COUNT & AUTO [id number] 05:08:00 Test Item Value Reference Range Interpretation Comments WHITE BLOOD CELL COUNT (BEAKER) 9.9 K/ L 3.5-10.5 (test code = 775) RED BLOOD CELL COUNT (BEAKER) 2.81 M/ L 4.63-6.08 L (test code = 761) HEMOGLOBIN (BEAKER) (test code = 7.1 GM/DL 13.7-17.5 L 410) HEMATOCRIT (BEAKER) (test code = 23.2 % 40.1-51.0 L 411) MEAN CORPUSCULAR VOLUME (BEAKER) 82.6 fL 79.0-92.2 (test code = 753) MEAN CORPUSCULAR HEMOGLOBIN 25.3 pg 25.7-32.2 L (BEAKER) (test code = 751) MEAN CORPUSCULAR HEMOGLOBIN CONC 30.6 GM/DL 32.3-36.5 L (BEAKER) (test code = 752) RED CELL DISTRIBUTION WIDTH 18.8 % 11.6-14.4 H (BEAKER) (test code = 412) PLATELET COUNT (BEAKER) (test 392 K/CU MM 150-450 code = 756) MEAN PLATELET VOLUME (BEAKER) 10.2 fL 9.4-12.4 (test code = 754) NUCLEATED RED BLOOD CELLS 0 /100 WBC 0-0 (BEAKER) (test code = 413) NEUTROPHILS RELATIVE PERCENT 70 % (BEAKER) (test code = 429) LYMPHOCYTES RELATIVE PERCENT 16 % (BEAKER) (test code = 430) MONOCYTES RELATIVE PERCENT 8 % (BEAKER) (test code = 431) EOSINOPHILS RELATIVE PERCENT 4 % (BEAKER) (test code = 432) BASOPHILS RELATIVE PERCENT 1 % (BEAKER) (test code = 437) NEUTROPHILS ABSOLUTE COUNT 6.96 K/ L 1.78-5.38 H (BEAKER) (test code = 670) LYMPHOCYTES ABSOLUTE COUNT 1.59 K/ L 1.32-3.57 (BEAKER) (test code = 414) MONOCYTES ABSOLUTE COUNT (BEAKER) 0.77 K/ L 0.30-0.82 (test code = 415) EOSINOPHILS ABSOLUTE COUNT 0.43 K/ L 0.04-0.54 (BEAKER) (test code = 416) BASOPHILS ABSOLUTE COUNT (BEAKER) 0.08 K/ L 0.01-0.08 (test code = 417) IMMATURE GRANULOCYTES-RELATIVE 1 % 0-1 PERCENT (BEAKER) (test code = 2801) POCT-GLUCOSE [id number] 21:32:00 Test Item Value Reference Range Interpretation Comments POC-GLUCOSE METER 138 mg/dL 70-110 H : [facility] [place] [facility] [place] (test code = [facility] [place], 1538) [id number]: Contract Engineer/Techni estefani ID = [id number] for HALI GARCIA SARS-COV2/RT-PCR ([facility])2020-01-13 16:42:00 Test Item Value Reference Range Interpretation Comments SARS-COV2/RT-PCR (test Negative Not Detected, Negative, code = 5029185) See external report for linked test SARS-COV-2 PERFORMING LAB [facility] (test code = 4009684) Negative result for this test determines that SARS-CoV-2 RNA was not present in the specimen above the Limit of Detection (LOD). However, Negative results do not preclude SARS-CoV-2 infection and should not be used as the sole basis for treatment or patient management decisions. Negative results mustbe combined with clinical observations, patient history, and epidemiological information. A false negative result may occur if a specimen is improperly collected, transported or handled. A false negative result should be considered if patient's recent exposures or clinical presentation indicate that COVID-19 (SARS-CoV-2) is likely and diagnostic tests for other causes of illness are negative. Re-testing should be considered in cases of suspected false negatives.The limit of detection for this assay is 100 copies/mL.This SARS CoV-2 test is a real-time RT-PCR test intended for the qualitative detection of nucleic acid from SARS-CoV-2 in a nasopharyngeal swab specimen collected from individuals susp ected of COVID-19 by their healthcare provider.This test has not been Food and Drug Administration (FDA) cleared or approved. This is a modified version of an approved Emergency Use Authorization (EUA) and is in the process of review by the FDA. Once authorized by the FDA, the issued EUA will be effective until the declaration that circumstances exist justifying the authorization of the emergency use of in vitro diagnostic tests for detection and/or diagnosis of COVID-19 is terminated under Section 564(b)(2) of the Act or the EUA is revoked under Section 564(g) of the Act.Testing was performed using the Giles SARS-CoV-2 assay.Fact Sheet for Healthcare Providers:https://www.[employer].giles/ari/ DI_YMJQ-ZcW-8_EWE_Brjm_Mibjh_33-037721.pdfFact Sheet for Healthcare Patients:https://www.[employer].TextPayMe radha/ari/KL_SHJK-WaG-0_Wjecpen_Zexm_Kiqih_RF_50-289573E4.pdfPerforming Laboratory:[facility] [place] [address] POCT-GLUCOSE [id number] 15:53:00 Test Item Value Reference Range Interpretation Comments POC-GLUCOSE METER 177 mg/dL 70-110 H : TESTED A T [facility] 6720 (BEAKER) ([place], [address]: code = 1538) Contract Engineer/Techni estefani ID = [id number] for [place] DOUGHERTYSINDI JOHNS IN POCT-GLUCOSE [id number] 11:29:00 Test Item Value Reference Range Interpretation Comments POC-GLUCOSE METER 132 mg/dL 70-110 H : TESTED A T [facility] 6720 (BEAKER) ([place], [address]: code = 1538) Contract Engineer/Techni estefani ID = [id number] for [place] DOUGHERTYSINDI JOHNS IN SURGICALLY OBTAINED CULTURE + GRAM [id number] 08:54:00 Test Item Value Reference Range Interpretation Comments CULTURE (BEAKER) A 1+ Same org anism has been (test code = 1095) isolated from cultures(s) of the same bod y site within 3 days. Repeat identification and susceptibility testing performed only after consultation wi th the clinical microb iology laboratory.Refe r to previous cultur e ofPseudomonas a eruginosa POCT-GLUCOSE [id number] 07:31:00 Test Item Value Reference Range Interpretation Comments POC-GLUCOSE METER 124 mg/dL 70-110 H : TESTED A T [facility] 6720 (BEAKER) ([place], [address]: code = 1538) Contract Engineer/Techni estefani ID = [id number] for SINDI SANCHEZ IN POCT-GLUCOSE [id number] 22:46:00 Test Item Value Reference Range Interpretation Comments POC-GLUCOSE METER 185 mg/dL 70-110 H : [facility] T [facility] ([facility]) (test code = [facility], 153) [address]: Contract Engineer/Techni estefani ID = [id number] for ALLA MONTOYA POCT-GLUCOSE [id number] 16:38:00 Test Item Value Reference Range Interpretation Comments POC-GLUCOSE METER 153 mg/dL 70-110 H : TESTED [facility] T [facility] ([facility]) (test code = [facility], 153) [address]: Contract Engineer/Techni estefani ID = [id number] for TH OMAS, COSHA POCT-GLUCOSE [id number] 12:15:00 Test Item Value Reference Range Interpretation Comments POC-GLUCOSE METER 151 mg/dL 70-110 H : Notified RN/MD: ([facility]) (test code = TESTED AT [facility] 6720 1538) [facility], [address]: Contract Engineer/Techni estefani ID = [id number] for TH OMAS, COSHA WOUND CULTURE + GRAM [id number] 09:32:00 Test Item Value Reference Range Interpretation Comments CULTURE ([facility]) PSEUDOMONAS A <1+ Pseudom onas (test code = 1095) AERUGINOSA aeruginos a Amikacin (test code Susceptible 0-16 S = 1) , Resistant <0 or >16 Aztreonam (test Susceptible 0-8 , R code = 32) Resistant <0 or >8 Cefepime (test code Susceptible 0-8 , S = 51) Resistant <0 or >8 Ceftazidime (test Susceptible 0-8 , S code = 27) Resistant <0 or >8 Ciprofloxacin (test Susceptible 0-0.5 S code = 7) , Resistant <0 or >.5 Gentamicin (test Susceptible 0-4 , S code = 18) Resistant <0 or >4 Imipenem (test code Susceptible 0-2 , R = 19) Resistant <0 or >2 Levofloxacin (test Susceptible 0-1 , R code = 22) Resistant <0 or >1 Meropenem (test Susceptible 0-2 , R code = 34) Resistant <0 or >2 Piperacillin (test Susceptible 0-16 S code = 24) , Resistant <0 or >16 Piperacillin + Susceptible 0-16 S Tazobactam (test , Resistant <0 or code = 29) >16 Tobramycin (test Susceptible 0-4 , S code = 25) Resistant <0 or >4 GRAM STAIN RESULT 1+ White blood (BEAKER) (test code cells seen = 1123) GRAM STAIN RESULT No organisms seen (BEAKER) (test code = 654483) POCT-GLUCOSE [id number] 07:11:00 Test Item Value Reference Range Interpretation Comments POC-GLUCOSE METER 121 mg/dL 70-110 H : Notified RN/MD: (BEAKER) (test code = TESTED AT [facility] 6521 9858) [facility], [address]: Contract Engineer/Techni estefani ID = [id number] for HADLEY MELISSA BASIC METABOLIC [id number] 05:27:00 Test Item Value Reference Range Interpretation Comments SODIUM (BEAKER) 138 meq/L 136-145 (test code = 381) POTASSIUM (BEAKER) 4.1 meq/L 3.5-5.1 (test code = 379) CHLORIDE (BEAKER) 102 meq/L 98-107 (test code = 382) CO2 (BEAKER) (test 26 meq/L 22-29 code = 355) BLOOD UREA NITROGEN 20 mg/dL 7-21 (BEAKER) (test code = 354) CREATININE (BEAKER) 5.14 mg/dL 0.57-1.25 H (test code = 358) GLUCOSE RANDOM 127 mg/dL 70-105 H (BEAKER) (test code = 652) CALCIUM (BEAKER) 8.2 mg/dL 8.4-10.2 L (test code = 697) EGFR (BEAKER) (test 12 mL/min/1.73 ESTIMA DORIS GFR IS code = 1092) sq m NOT ACCURATE CREATININE CLEARANCE IN PREDICTING GLOMERULAR FILTRATION RATE . ESTIMATED GFR I S NOT APPLICABLE FOR DIALYSIS PATIEN TS. Contract Engineer ID - EDASICBC W/PLT COUNT & AUTO [id number] 04:50:00 Test Item Value Reference Range Interpretation Comments WHITE BLOOD CELL COUNT (BEAKER) 10.1 K/ L 3.5-10.5 (test code = 775) RED BLOOD CELL COUNT (BEAKER) 2.77 M/ L 4.63-6.08 L (test code = 761) HEMOGLOBIN (BEAKER) (test code = 7.1 GM/DL 13.7-17.5 L 410) HEMATOCRIT (BEAKER) (test code = 22.6 % 40.1-51.0 L 411) MEAN CORPUSCULAR VOLUME (BEAKER) 81.6 fL 79.0-92.2 (test code = 753) MEAN CORPUSCULAR HEMOGLOBIN 25.6 pg 25.7-32.2 L (BEAKER) (test code = 751) MEAN CORPUSCULAR HEMOGLOBIN CONC 31.4 GM/DL 32.3-36.5 L (BEAKER) (test code = 752) RED CELL DISTRIBUTION WIDTH 18.0 % 11.6-14.4 H (BEAKER) (test code = 412) PLATELET COUNT (BEAKER) (test 335 K/CU MM 150-450 code = 756) MEAN PLATELET VOLUME (BEAKER) 9.1 fL 9.4-12.4 L (test code = 754) NUCLEATED RED BLOOD CELLS 0 /100 WBC 0-0 (BEAKER) (test code = 413) NEUTROPHILS RELATIVE PERCENT 70 % (BEAKER) (test code = 429) LYMPHOCYTES RELATIVE PERCENT 13 % (BEAKER) (test code = 430) MONOCYTES RELATIVE PERCENT 10 % (BEAKER) (test code = 431) EOSINOPHILS RELATIVE PERCENT 5 % (BEAKER) (test code = 432) BASOPHILS RELATIVE PERCENT 1 % (BEAKER) (test code = 437) NEUTROPHILS ABSOLUTE COUNT 7.06 K/ L 1.78-5.38 H (BEAKER) (test code = 670) LYMPHOCYTES ABSOLUTE COUNT 1.34 K/ L 1.32-3.57 (BEAKER) (test code = 414) MONOCYTES ABSOLUTE COUNT (BEAKER) 1.04 K/ L 0.30-0.82 H (test code = 415) EOSINOPHILS ABSOLUTE COUNT 0.52 K/ L 0.04-0.54 (BEAKER) (test code = 416) BASOPHILS ABSOLUTE COUNT (BEAKER) 0.09 K/ L 0.01-0.08 H (test code = 417) IMMATURE GRANULOCYTES-RELATIVE 0 % 0-1 PERCENT (BEAKER) (test code = 2801) POCT-GLUCOSE [id number] 21:56:00 Test Item Value Reference Range Interpretation Comments POC-GLUCOSE METER 196 mg/dL 70-110 H : TESTED A T [facility] 6720 (BEAKER) (test code = [facility], 153) [address]: Contract Engineer/Techni estefani ID = [id number] for JOSHUA GONZALEZ BLOOD [id number] 17:00:00 Test Item Value Reference Range Interpretation Comments CULTURE (BEAKER) (test No growth in 5 days code = 1095) BLOOD [id number] 17:00:00 Test Item Value Reference Range Interpretation Comments CULTURE (BEAKER) (test No growth in 5 days code = 1095) POCT-GLUCOSE [id number] 15:32:00 Test Item Value Reference Range Interpretation Comments POC-GLUCOSE METER 132 mg/dL 70-110 H : TESTED A T [facility] 6720 (BEAKER) (test code = [facility], 153) [address]: Contract Engineer/Techni estefani ID = [id number] for Juliano Aleman SPIN/CONCENTRATION [id number] 14:39:00 Test Item Value Reference Range Interpretation Comments CONCENTRATION CHARGED (BEAKER) (test Done code = 2657) SPIN/CONCENTRATION [id number] 14:39:00 Test Item Value Reference Range Interpretation Comments CONCENTRATION CHARGED (BEAKER) (test Done code = 2657) POCT-GLUCOSE [id number] 13:00:00 Test Item Value Reference Range Interpretation Comments POC-GLUCOSE METER 187 mg/dL 70-110 H : TESTED A T [facility] 6720 (BEAKER) (test code = [facility], 153) [address]: Contract Engineer/Techni estefani ID = [id number] for Juliano Aleman [id number] 11:53:00 Test Item Value Reference Range Interpretation Comments PHOSPHORUS (BEAKER) (test code = 2.9 mg/dL 2.3-4.7 604) Contract Engineer ID - ADMINPOCT-GLUCOSE [id number] 09:45:00 Test Item Value Reference Range Interpretation Comments POC-GLUCOSE METER 117 mg/dL 70-110 H : TESTED A T [facility] 6720 (BEAKER) (test code = [facility], 153) [address]: Contract Engineer/Techni estefani ID = [id number] for LISA DALLAS BASIC METABOLIC [id number] 05:46:00 Test Item Value Reference Range Interpretation Comments SODIUM (BEAKER) 134 meq/L 136-145 L (test code = 381) POTASSIUM (BEAKER) 4.1 meq/L 3.5-5.1 (test code = 379) CHLORIDE (BEAKER) 98 meq/L 98-107 (test code = 382) CO2 (BEAKER) (test 25 meq/L 22-29 code = 355) BLOOD UREA NITROGEN 28 mg/dL 7-21 H (BEAKER) (test code = 354) CREATININE (BEAKER) 7.23 mg/dL 0.57-1.25 H (test code = 358) GLUCOSE RANDOM 157 mg/dL 70-105 H (BEAKER) (test code = 652) CALCIUM (BEAKER) 8.0 mg/dL 8.4-10.2 L (test code = 697) EGFR (BEAKER) (test 8 mL/min/1.73 ESTIMAT ED GFR IS code = 1092) sq m NOT ACCURATE CREATININE CLEARANCE IN PREDICTING GLOMERULAR FILTRATION RATE . ESTIMATED GFR I S NOT APPLICABLE FOR DIALYSIS PATIEN TS. Contract Engineer ID - ADMINCBC W/PLT COUNT & AUTO [id number] 05:13:00 Test Item Value Reference Range Interpretation Comments WHITE BLOOD CELL COUNT (BEAKER) 10.0 K/ L 3.5-10.5 (test code = 775) RED BLOOD CELL COUNT (BEAKER) 2.87 M/ L 4.63-6.08 L (test code = 761) HEMOGLOBIN (BEAKER) (test code = 7.1 GM/DL 13.7-17.5 L 410) HEMATOCRIT (BEAKER) (test code = 23.6 % 40.1-51.0 L 411) MEAN CORPUSCULAR VOLUME (BEAKER) 82.2 fL 79.0-92.2 (test code = 753) MEAN CORPUSCULAR HEMOGLOBIN 24.7 pg 25.7-32.2 L (BEAKER) (test code = 751) MEAN CORPUSCULAR HEMOGLOBIN CONC 30.1 GM/DL 32.3-36.5 L (BEAKER) (test code = 752) RED CELL DISTRIBUTION WIDTH 17.6 % 11.6-14.4 H (BEAKER) (test code = 412) PLATELET COUNT (BEAKER) (test 334 K/CU MM 150-450 code = 756) MEAN PLATELET VOLUME (BEAKER) 9.2 fL 9.4-12.4 L (test code = 754) NUCLEATED RED BLOOD CELLS 0 /100 WBC 0-0 (BEAKER) (test code = 413) NEUTROPHILS RELATIVE PERCENT 73 % (BEAKER) (test code = 429) LYMPHOCYTES RELATIVE PERCENT 11 % (BEAKER) (test code = 430) MONOCYTES RELATIVE PERCENT 9 % (BEAKER) (test code = 431) EOSINOPHILS RELATIVE PERCENT 5 % (BEAKER) (test code = 432) BASOPHILS RELATIVE PERCENT 1 % (BEAKER) (test code = 437) NEUTROPHILS ABSOLUTE COUNT 7.31 K/ L 1.78-5.38 H (BEAKER) (test code = 670) LYMPHOCYTES ABSOLUTE COUNT 1.12 K/ L 1.32-3.57 L (BEAKER) (test code = 414) MONOCYTES ABSOLUTE COUNT (BEAKER) 0.94 K/ L 0.30-0.82 H (test code = 415) EOSINOPHILS ABSOLUTE COUNT 0.51 K/ L 0.04-0.54 (BEAKER) (test code = 416) BASOPHILS ABSOLUTE COUNT (BEAKER) 0.08 K/ L 0.01-0.08 (test code = 417) IMMATURE GRANULOCYTES-RELATIVE 1 % 0-1 PERCENT (BEAKER) (test code = 2801) POCT-GLUCOSE [id number] 22:36:00 Test Item Value Reference Range Interpretation Comments POC-GLUCOSE METER 214 mg/dL 70-110 H : TESTED A T [facility] 6720 (BEAKER) (test code = [facility], 153) [address]: Contract Engineer/Techni estefani ID = [id number] for WEEMS ALYCIA ELELL POCT-GLUCOSE [id number] 19:08:00 Test Item Value Reference Range Interpretation Comments POC-GLUCOSE METER 106 mg/dL 70-110 : TESTED A T [facility] 6720 (BEAKER) (test code = [facility], 153) [address]: Contract Engineer/Techni estefani ID = [id number] for NICOLE ROSE GLOVER POCT-GLUCOSE [id number] 12:38:00 Test Item Value Reference Range Interpretation Comments POC-GLUCOSE METER 114 mg/dL 70-110 H : TESTED A T [facility] 6720 (BEAKER) (test code = DASIA Garcia [place], 1538) [address]: Contract Engineer/Techni estefani ID = [id number] for KHADRA SKELTON POCT-GLUCOSE [id number] 10:42:00 Test Item Value Reference Range Interpretation Comments POC-GLUCOSE METER 121 mg/dL 70-110 H : TESTED A T [facility] 6720 (BEAKER) (test code = [facility] [place], 1538) [address]: Contract Engineer/Techni estefani ID = [id number] for KHADRA SKELTON BASIC METABOLIC [id number] 06:21:00 Test Item Value Reference Range Interpretation Comments SODIUM (BEAKER) 135 meq/L 136-145 L (test code = 381) POTASSIUM (BEAKER) 3.9 meq/L 3.5-5.1 (test code = 379) CHLORIDE (BEAKER) 100 meq/L 98-107 (test code = 382) CO2 (BEAKER) (test 27 meq/L 22-29 code = 355) BLOOD UREA NITROGEN 21 mg/dL 7-21 (BEAKER) (test code = 354) CREATININE (BEAKER) 5.90 mg/dL 0.57-1.25 H (test code = 358) GLUCOSE RANDOM 116 mg/dL 70-105 H (BEAKER) (test code = 652) CALCIUM (BEAKER) 7.9 mg/dL 8.4-10.2 L (test code = 697) EGFR (BEAKER) (test 10 mL/min/1.73 ESTIMA DORIS GFR IS code = 1092) sq m NOT ACCURATE CREATININE CLEARANCE IN PREDICTING GLOMERULAR FILTRATION RATE . ESTIMATED GFR I S NOT APPLICABLE FOR DIALYSIS PATIEN TS. Contract Engineer ID - JAQUELINE [id number] 06:18:00 Test Item Value Reference Range Interpretation Comments PHOSPHORUS (BEAKER) (test code = 2.6 mg/dL 2.3-4.7 604) Contract Engineer ID - JAQUELINE MCBC W/PLT COUNT & AUTO [id number] 05:50:00 Test Item Value Reference Range Interpretation Comments WHITE BLOOD CELL COUNT (BEAKER) 8.9 K/ L 3.5-10.5 (test code = 775) RED BLOOD CELL COUNT (BEAKER) 2.86 M/ L 4.63-6.08 L (test code = 761) HEMOGLOBIN (BEAKER) (test code = 7.1 GM/DL 13.7-17.5 L 410) HEMATOCRIT (BEAKER) (test code = 23.4 % 40.1-51.0 L 411) MEAN CORPUSCULAR VOLUME (BEAKER) 81.8 fL 79.0-92.2 (test code = 753) MEAN CORPUSCULAR HEMOGLOBIN 24.8 pg 25.7-32.2 L (BEAKER) (test code = 751) MEAN CORPUSCULAR HEMOGLOBIN CONC 30.3 GM/DL 32.3-36.5 L (BEAKER) (test code = 752) RED CELL DISTRIBUTION WIDTH 17.3 % 11.6-14.4 H (BEAKER) (test code = 412) PLATELET COUNT (BEAKER) (test 312 K/CU MM 150-450 code = 756) MEAN PLATELET VOLUME (BEAKER) 9.2 fL 9.4-12.4 L (test code = 754) NUCLEATED RED BLOOD CELLS 0 /100 WBC 0-0 (BEAKER) (test code = 413) NEUTROPHILS RELATIVE PERCENT 66 % (BEAKER) (test code = 429) LYMPHOCYTES RELATIVE PERCENT 16 % (BEAKER) (test code = 430) MONOCYTES RELATIVE PERCENT 10 % (BEAKER) (test code = 431) EOSINOPHILS RELATIVE PERCENT 6 % (BEAKER) (test code = 432) BASOPHILS RELATIVE PERCENT 1 % (BEAKER) (test code = 437) NEUTROPHILS ABSOLUTE COUNT 5.86 K/ L 1.78-5.38 H (BEAKER) (test code = 670) LYMPHOCYTES ABSOLUTE COUNT 1.46 K/ L 1.32-3.57 (BEAKER) (test code = 414) MONOCYTES ABSOLUTE COUNT (BEAKER) 0.87 K/ L 0.30-0.82 H (test code = 415) EOSINOPHILS ABSOLUTE COUNT 0.57 K/ L 0.04-0.54 H (BEAKER) (test code = 416) BASOPHILS ABSOLUTE COUNT (BEAKER) 0.07 K/ L 0.01-0.08 (test code = 417) IMMATURE GRANULOCYTES-RELATIVE 1 % 0-1 PERCENT (BEAKER) (test code = 2801) POCT-GLUCOSE [id number] 21:36:00 Test Item Value Reference Range Interpretation Comments POC-GLUCOSE METER 158 mg/dL 70-110 H : TESTED A T [facility] 6720 (BEAKER) (test code [facility], = 1538) [address]: Contract Engineer/Techni estefani ID = [id number] for ROMULO MCLEAN POCT-GLUCOSE [id number] 17:12:00 Test Item Value Reference Range Interpretation Comments POC-GLUCOSE METER 212 mg/dL 70-110 H : TESTED A T [facility] 6720 (BEAKER) (test code = [facility], 1538) [address]: Contract Engineer/Techni estefani ID = [id number] for OL MOS, SUREKHA POCT-GLUCOSE [id number] 11:24:00 Test Item Value Reference Range Interpretation Comments POC-GLUCOSE METER 159 mg/dL 70-110 H : TESTED A T [facility] 6720 (BEAKER) (test code = [facility] Jose [facility], 1538) [address]: Contract Engineer/Techni estefani ID = [id number] for OL MOS, SUREKHA POCT-GLUCOSE [id number] 10:21:00 Test Item Value Reference Range Interpretation Comments POC-GLUCOSE METER 111 mg/dL 70-110 H : TESTED A T [facility] 6720 (BEAKER) (test code = [facility], 1538) [address]: Contract Engineer/Techni estefani ID = [id number] for RI MARIE ANNMARIE BASIC METABOLIC [id number] 05:04:00 Test Item Value Reference Range Interpretation Comments SODIUM (BEAKER) 137 meq/L 136-145 (test code = 381) POTASSIUM (BEAKER) 4.1 meq/L 3.5-5.1 (test code = 379) CHLORIDE (BEAKER) 101 meq/L 98-107 (test code = 382) CO2 (BEAKER) (test 26 meq/L 22-29 code = 355) BLOOD UREA NITROGEN 31 mg/dL 7-21 H (BEAKER) (test code = 354) CREATININE (BEAKER) 7.56 mg/dL 0.57-1.25 H (test code = 358) GLUCOSE RANDOM 120 mg/dL 70-105 H (BEAKER) (test code = 652) CALCIUM (BEAKER) 7.7 mg/dL 8.4-10.2 L (test code = 697) EGFR (BEAKER) (test 7 mL/min/1.73 ESTIMAT ED GFR IS code = 1092) sq m NOT ACCURATE CREATININE CLEARANCE IN PREDICTING GLOMERULAR FILTRATION RATE . ESTIMATED GFR I S NOT APPLICABLE FOR DIALYSIS PATIEN TS. Contract Engineer ID - JAQUELINE [id number] 04:57:00 Test Item Value Reference Range Interpretation Comments MAGNESIUM (BEAKER) (test code = 2.0 mg/dL 1.6-2.6 627) Contract Engineer ID - JAQUELINE [id number] 04:57:00 Test Item Value Reference Range Interpretation Comments PHOSPHORUS (BEAKER) (test code = 2.5 mg/dL 2.3-4.7 604) Contract Engineer ID - JAQUELINE MCBC W/PLT COUNT & AUTO [id number] 04:37:00 Test Item Value Reference Range Interpretation Comments WHITE BLOOD CELL COUNT (BEAKER) 10.2 K/ L 3.5-10.5 (test code = 775) RED BLOOD CELL COUNT (BEAKER) 2.90 M/ L 4.63-6.08 L (test code = 761) HEMOGLOBIN (BEAKER) (test code = 7.2 GM/DL 13.7-17.5 L 410) HEMATOCRIT (BEAKER) (test code = 23.9 % 40.1-51.0 L 411) MEAN CORPUSCULAR VOLUME (BEAKER) 82.4 fL 79.0-92.2 (test code = 753) MEAN CORPUSCULAR HEMOGLOBIN 24.8 pg 25.7-32.2 L (BEAKER) (test code = 751) MEAN CORPUSCULAR HEMOGLOBIN CONC 30.1 GM/DL 32.3-36.5 L (BEAKER) (test code = 752) RED CELL DISTRIBUTION WIDTH 17.3 % 11.6-14.4 H (BEAKER) (test code = 412) PLATELET COUNT (BEAKER) (test 289 K/CU MM 150-450 code = 756) MEAN PLATELET VOLUME (BEAKER) 9.3 fL 9.4-12.4 L (test code = 754) NUCLEATED RED BLOOD CELLS 0 /100 WBC 0-0 (BEAKER) (test code = 413) NEUTROPHILS RELATIVE PERCENT 69 % (BEAKER) (test code = 429) LYMPHOCYTES RELATIVE PERCENT 14 % (BEAKER) (test code = 430) MONOCYTES RELATIVE PERCENT 10 % (BEAKER) (test code = 431) EOSINOPHILS RELATIVE PERCENT 6 % (BEAKER) (test code = 432) BASOPHILS RELATIVE PERCENT 1 % (BEAKER) (test code = 437) NEUTROPHILS ABSOLUTE COUNT 7.03 K/ L 1.78-5.38 H (BEAKER) (test code = 670) LYMPHOCYTES ABSOLUTE COUNT 1.44 K/ L 1.32-3.57 (BEAKER) (test code = 414) MONOCYTES ABSOLUTE COUNT (BEAKER) 1.00 K/ L 0.30-0.82 H (test code = 415) EOSINOPHILS ABSOLUTE COUNT 0.56 K/ L 0.04-0.54 H (BEAKER) (test code = 416) BASOPHILS ABSOLUTE COUNT (BEAKER) 0.09 K/ L 0.01-0.08 H (test code = 417) IMMATURE GRANULOCYTES-RELATIVE 1 % 0-1 PERCENT (BEAKER) (test code = 2801) POCT-GLUCOSE [id number] 22:46:00 Test Item Value Reference Range Interpretation Comments POC-GLUCOSE METER 163 mg/dL 70-110 H : TESTED A T [facility] 6720 (BEAKER) (test code = [facility]) [address]: Contract Engineer/Techni estefani ID = [id number] for TUYET BORJA POCT-GLUCOSE [id number] 16:09:00 Test Item Value Reference Range Interpretation Comments POC-GLUCOSE METER 141 mg/dL 70-110 H : TESTED A T [facility] 6720 (BEAKER) (test code = [facility], [facility]) [address]: Contract Engineer/Techni estefani ID = [id number] for Wi llis, Tabby POCT-GLUCOSE [id number] 11:19:00 Test Item Value Reference Range Interpretation Comments POC-GLUCOSE METER 119 mg/dL 70-110 H : TESTED A T [facility] 6720 (BEAKER) (test code = [facility], 1538) [address]: Contract Engineer/Techni estefani ID = [id number] for Wi llis, Tabby POCT-GLUCOSE [id number] 08:29:00 Test Item Value Reference Range Interpretation Comments POC-GLUCOSE METER 102 mg/dL 70-110 : TESTED A T [facility] 6720 (BEAKER) (test code = [facility], 1538) [address]: Contract Engineer/Techni estefani ID = [id number] for ARCELIA SUAZO [id number] 06:50:00 Test Item Value Reference Range Interpretation Comments FERRITIN (BEAKER) (test code = 623.64 ng/mL 5.00-275.00 H 361) Contract Engineer ID - ADMINECG 12 [id number] 06:29:54Interface, External Ris In - 01/08/2020 6:30 AM CSTVentricular Rate 71 BPMAtrial Rate 71 BPMP-R Interval 122 msQRS Duration 84 msQ-T Interval 428 msQTC Calculation(Bazett) 465 msP [place] 60 degreesR [place] -5 degreesT [place] 35 degreesSinus rhythm with marked sinus arrhythmiaPossible Left atrial enlargementInferior infarct (cited on or before 06-JAN-2020)Anterior infarct (cited on or before 19-JUN-2019)Abnormal ECGWhen compared with ECG of 06-JAN-2020 17:46,No significant change was foundConfirmed by MD SHAHZAD, CLARK Rowland ([id number]) on 01/08/2020 6:29:47 [facility] % SAT. (WITHOUT FERRITIN)2020-01-08 06:28:00 Test Item Value Reference Range Interpretation Comments IRON (BEAKER) (test code = 547) 17.0 ug/dL 40.0-160.0 L TOTAL IRON BINDING CAPACITY 128 ug/dL 250-450 L (BEAKER) (test code = 769) IRON % SATURATION (2) (BEAKER) 13 % 20-55 L (test code = 2590) Contract Engineer ID - ADMINVancomycin level, [id number] 06:26:00 Test Item Value Reference Range Interpretation Comments Vancomycin Rm (test 20.4 ug/mL code = 24676-8) MITCHELL (test code = Reference Range: No MITCHELL) NormalsOperator ID - ADMIN [facility], [id number] 06:26:00 Test Item Value Reference Range Interpretation Comments VANCOMYCIN RANDOM (BEAKER) (test 20.4 ug/mL code = 523) Reference Range: No NormalsOperator ID - ADMINBASIC METABOLIC [id number] 02:21:00 Test Item Value Reference Range Interpretation Comments SODIUM (BEAKER) 138 meq/L 136-145 (test code = 381) POTASSIUM (BEAKER) 4.0 meq/L 3.5-5.1 (test code = 379) CHLORIDE (BEAKER) 100 meq/L 98-107 (test code = 382) CO2 (BEAKER) (test 25 meq/L 22-29 code = 355) BLOOD UREA NITROGEN 23 mg/dL 7-21 H (BEAKER) (test code = 354) CREATININE (BEAKER) 5.59 mg/dL 0.57-1.25 H (test code = 358) GLUCOSE RANDOM 128 mg/dL 70-105 H (BEAKER) (test code = 652) CALCIUM (BEAKER) 7.9 mg/dL 8.4-10.2 L (test code = 697) EGFR (BEAKER) (test 10 mL/min/1.73 ESTIMA DORIS GFR IS code = 1092) sq m NOT ACCURATE CREATININE CLEARANCE IN PREDICTING GLOMERULAR FILTRATION RATE . ESTIMATED GFR I S NOT APPLICABLE FOR DIALYSIS PATIEN TS. Contract Engineer ID - [id number] 02:09:00 Test Item Value Reference Range Interpretation Comments MAGNESIUM (BEAKER) (test code = 1.8 mg/dL 1.6-2.6 627) Contract Engineer ID - [id number] 02:09:00 Test Item Value Reference Range Interpretation Comments PHOSPHORUS (BEAKER) (test code = 2.4 mg/dL 2.3-4.7 604) Contract Engineer ID - [id number] 02:06:00 Test Item Value Reference Range Interpretation Comments PTT (test code = 46.2 See_Comment H [Automated message] 68801-1) The system [employer] generated this result transmitted ref erence range: 22.5 - 3 6.0 seconds. The reference range was not used to int erpret this result as normal/abnormal . Lab Interpretation (test Abnormal code = 17719-0) [facility] 02:06:00 Test Item Value Reference Range Interpretation Comments PARTIAL THROMBOPLASTIN TIME 46.2 seconds 22.5-36.0 H (BEAKER) (test code = 760) PROTHROMBIN TIME/[id number] 02:05:00 Test Item Value Reference Range Interpretation Comments PROTIME (BEAKER) (test code = 16.6 seconds 11.9-14.2 H 759) INR (BEAKER) (test code = 370) 1.38 <=5.90 Effective 08/02/2018: PT Reference Range ChangeNew: 11.9-14.2 Previous: 11.7- 14.7RECOMMENDED COUMADIN/WARFARIN INR THERAPY RANGESSTANDARD DOSE: 2.0-3.0 Includes: PROPHYLAXIS for venous thrombosis, systemic embolization; TREATMENT for venous thrombosis and/or pulmonary embolus.HIGH RISK: Target INR is2.5-3.5 for patients wiht mechanical heart valves.CBC W/PLT COUNT & AUTO [id number] 02:03:00 Test Item Value Reference Range Interpretation Comments WHITE BLOOD CELL COUNT (BEAKER) 10.1 K/ L 3.5-10.5 (test code = 775) RED BLOOD CELL COUNT (BEAKER) 3.17 M/ L 4.63-6.08 L (test code = 761) HEMOGLOBIN (BEAKER) (test code = 7.9 GM/DL 13.7-17.5 L 410) HEMATOCRIT (BEAKER) (test code = 26.0 % 40.1-51.0 L 411) MEAN CORPUSCULAR VOLUME (BEAKER) 82.0 fL 79.0-92.2 (test code = 753) MEAN CORPUSCULAR HEMOGLOBIN 24.9 pg 25.7-32.2 L (BEAKER) (test code = 751) MEAN CORPUSCULAR HEMOGLOBIN CONC 30.4 GM/DL 32.3-36.5 L (BEAKER) (test code = 752) RED CELL DISTRIBUTION WIDTH 17.1 % 11.6-14.4 H (BEAKER) (test code = 412) PLATELET COUNT (BEAKER) (test 263 K/CU MM 150-450 code = 756) MEAN PLATELET VOLUME (BEAKER) 9.1 fL 9.4-12.4 L (test code = 754) NUCLEATED RED BLOOD CELLS 0 /100 WBC 0-0 (BEAKER) (test code = 413) NEUTROPHILS RELATIVE PERCENT 75 % (BEAKER) (test code = 429) LYMPHOCYTES RELATIVE PERCENT 7 % (BEAKER) (test code = 430) MONOCYTES RELATIVE PERCENT 12 % (BEAKER) (test code = 431) EOSINOPHILS RELATIVE PERCENT 5 % (BEAKER) (test code = 432) BASOPHILS RELATIVE PERCENT 1 % (BEAKER) (test code = 437) NEUTROPHILS ABSOLUTE COUNT 7.58 K/ L 1.78-5.38 H (BEAKER) (test code = 670) LYMPHOCYTES ABSOLUTE COUNT 0.74 K/ L 1.32-3.57 L (BEAKER) (test code = 414) MONOCYTES ABSOLUTE COUNT (BEAKER) 1.16 K/ L 0.30-0.82 H (test code = 415) EOSINOPHILS ABSOLUTE COUNT 0.52 K/ L 0.04-0.54 (BEAKER) (test code = 416) BASOPHILS ABSOLUTE COUNT (BEAKER) 0.07 K/ L 0.01-0.08 (test code = 417) IMMATURE GRANULOCYTES-RELATIVE 1 % 0-1 PERCENT (BEAKER) (test code = 2801) POCT-GLUCOSE [id number] 00:26:00 Test Item Value Reference Range Interpretation Comments POC-GLUCOSE METER 118 mg/dL 70-110 H : TESTED A T [facility] 6720 (BEAKER) (test code = [facility], 153) [address]: Contract Engineer/Techni estefani ID = [id number] for Ez marleny, Laura POCT-GLUCOSE [id number] 16:33:00 Test Item Value Reference Range Interpretation Comments POC-GLUCOSE METER 154 mg/dL 70-110 H : TESTED A T [facility] 6720 (BEAKER) (test code = [facility], 153) [address]: Contract Engineer/Techni estefani ID = [id number] for CO X, RADHA POCT-GLUCOSE [id number] 13:11:00 Test Item Value Reference Range Interpretation Comments POC-GLUCOSE METER 169 mg/dL 70-110 H : TESTED A T [facility] 6720 (BEAKER) (test code = [facility], 153) [address]: Contract Engineer/Techni estefani ID = [id number] for Celi Jesus CBC W/PLT COUNT & AUTO [id number] 10:36:00 Test Item Value Reference Range Interpretation Comments WHITE BLOOD CELL COUNT (BEAKER) 13.2 K/ L 3.5-10.5 H (test code = 775) RED BLOOD CELL COUNT (BEAKER) 2.68 M/ L 4.63-6.08 L (test code = 761) HEMOGLOBIN (BEAKER) (test code = 6.6 GM/DL 13.7-17.5 L 410) HEMATOCRIT (BEAKER) (test code = 21.8 % 40.1-51.0 L 411) MEAN CORPUSCULAR VOLUME (BEAKER) 81.3 fL 79.0-92.2 (test code = 753) MEAN CORPUSCULAR HEMOGLOBIN 24.6 pg 25.7-32.2 L (BEAKER) (test code = 751) MEAN CORPUSCULAR HEMOGLOBIN CONC 30.3 GM/DL 32.3-36.5 L (BEAKER) (test code = 752) RED CELL DISTRIBUTION WIDTH 17.0 % 11.6-14.4 H (BEAKER) (test code = 412) PLATELET COUNT (BEAKER) (test 276 K/CU MM 150-450 code = 756) MEAN PLATELET VOLUME (BEAKER) 9.3 fL 9.4-12.4 L (test code = 754) NUCLEATED RED BLOOD CELLS 0 /100 WBC 0-0 (BEAKER) (test code = 413) NEUTROPHILS RELATIVE PERCENT 85 % (BEAKER) (test code = 429) LYMPHOCYTES RELATIVE PERCENT 5 % (BEAKER) (test code = 430) MONOCYTES RELATIVE PERCENT 7 % (BEAKER) (test code = 431) EOSINOPHILS RELATIVE PERCENT 2 % (BEAKER) (test code = 432) BASOPHILS RELATIVE PERCENT 1 % (BEAKER) (test code = 437) NEUTROPHILS ABSOLUTE COUNT 11.25 K/ L 1.78-5.38 H (BEAKER) (test code = 670) LYMPHOCYTES ABSOLUTE COUNT 0.61 K/ L 1.32-3.57 L (BEAKER) (test code = 414) MONOCYTES ABSOLUTE COUNT (BEAKER) 0.97 K/ L 0.30-0.82 H (test code = 415) EOSINOPHILS ABSOLUTE COUNT 0.23 K/ L 0.04-0.54 (BEAKER) (test code = 416) BASOPHILS ABSOLUTE COUNT (BEAKER) 0.08 K/ L 0.01-0.08 (test code = 417) IMMATURE GRANULOCYTES-RELATIVE 1 % 0-1 PERCENT (BEAKER) (test code = 2801) POCT-GLUCOSE [id number] 07:59:00 Test Item Value Reference Range Interpretation Comments POC-GLUCOSE METER 107 mg/dL 70-110 : TESTED A T [facility] 6720 (BEAKER) (test code = [place], 1538) [address]: Contract Engineer/Techni estefani ID = [id number] for RADHA SHELTON BASIC METABOLIC [id number] 07:01:00 Test Item Value Reference Range Interpretation Comments SODIUM (BEAKER) 134 meq/L 136-145 L (test code = 381) POTASSIUM (BEAKER) 4.5 meq/L 3.5-5.1 (test code = 379) CHLORIDE (BEAKER) 99 meq/L 98-107 (test code = 382) CO2 (BEAKER) (test 25 meq/L 22-29 code = 355) BLOOD UREA NITROGEN 38 mg/dL 7-21 H (BEAKER) (test code = 354) CREATININE (BEAKER) 8.44 mg/dL 0.57-1.25 H (test code = 358) GLUCOSE RANDOM 120 mg/dL 70-105 H (BEAKER) (test code = 652) CALCIUM (BEAKER) 7.7 mg/dL 8.4-10.2 L (test code = 697) EGFR (BEAKER) (test 7 mL/min/1.73 ESTIMAT ED GFR IS code = 1092) sq m NOT ACCURATE CREATININE CLEARANCE IN PREDICTING GLOMERULAR FILTRATION RATE . ESTIMATED GFR I S NOT APPLICABLE FOR DIALYSIS PATIEN TS. Contract Engineer ID - ANTONY [id number] 07:00:00 Test Item Value Reference Range Interpretation Comments MAGNESIUM (BEAKER) (test code = 1.9 mg/dL 1.6-2.6 627) Contract Engineer ID - ANTONY [id number] 07:00:00 Test Item Value Reference Range Interpretation Comments PHOSPHORUS (BEAKER) (test code = 4.4 mg/dL 2.3-4.7 604) Contract Engineer ID - ANTONY FVANCOMYCIN LEVEL, [id number] 06:30:00 Test Item Value Reference Range Interpretation Comments VANCOMYCIN RANDOM (BEAKER) (test 16.1 ug/mL code = 523) Reference Range: No NormalsOperator ID - SHAYNAASICBC W/PLT COUNT & AUTO [id number] 05:53:00 Test Item Value Reference Range Interpretation Comments WHITE BLOOD CELL COUNT (BEAKER) 15.7 K/ L 3.5-10.5 H (test code = 775) RED BLOOD CELL COUNT (BEAKER) 2.65 M/ L 4.63-6.08 L (test code = 761) HEMOGLOBIN (BEAKER) (test code = 6.4 GM/DL 13.7-17.5 L 410) HEMATOCRIT (BEAKER) (test code = 21.6 % 40.1-51.0 L 411) MEAN CORPUSCULAR VOLUME (BEAKER) 81.5 fL 79.0-92.2 (test code = 753) MEAN CORPUSCULAR HEMOGLOBIN 24.2 pg 25.7-32.2 L (BEAKER) (test code = 751) MEAN CORPUSCULAR HEMOGLOBIN CONC 29.6 GM/DL 32.3-36.5 L (BEAKER) (test code = 752) RED CELL DISTRIBUTION WIDTH 17.0 % 11.6-14.4 H (BEAKER) (test code = 412) PLATELET COUNT (BEAKER) (test 296 K/CU MM 150-450 code = 756) MEAN PLATELET VOLUME (BEAKER) 9.5 fL 9.4-12.4 (test code = 754) NUCLEATED RED BLOOD CELLS 0 /100 WBC 0-0 (BEAKER) (test code = 413) NEUTROPHILS RELATIVE PERCENT 86 % (BEAKER) (test code = 429) LYMPHOCYTES RELATIVE PERCENT 6 % (BEAKER) (test code = 430) MONOCYTES RELATIVE PERCENT 7 % (BEAKER) (test code = 431) EOSINOPHILS RELATIVE PERCENT 1 % (BEAKER) (test code = 432) BASOPHILS RELATIVE PERCENT 1 % (BEAKER) (test code = 437) NEUTROPHILS ABSOLUTE COUNT 13.50 K/ L 1.78-5.38 H (BEAKER) (test code = 670) LYMPHOCYTES ABSOLUTE COUNT 0.93 K/ L 1.32-3.57 L (BEAKER) (test code = 414) MONOCYTES ABSOLUTE COUNT (BEAKER) 1.02 K/ L 0.30-0.82 H (test code = 415) EOSINOPHILS ABSOLUTE COUNT 0.09 K/ L 0.04-0.54 (BEAKER) (test code = 416) BASOPHILS ABSOLUTE COUNT (BEAKER) 0.10 K/ L 0.01-0.08 H (test code = 417) IMMATURE GRANULOCYTES-RELATIVE 0 % 0-1 PERCENT (BEAKER) (test code = 2801) POCT-GLUCOSE [id number] 23:03:00 Test Item Value Reference Range Interpretation Comments POC-GLUCOSE METER 144 mg/dL 70-110 H : TESTED Vikas T [facility] 6720 (NOE) (test code = [facility], 1538) [address]: Contract Engineer/Techni estefani ID = [id number] for Pamela Ortiz SARS-COV2/RT-PCR ([facility])2020-01-06 21:26:00 Test Item Value Reference Range Interpretation Comments SARS-COV2/RT-PCR (test code Negative Not Detected, Negative, = 9618383) See external report for linked test SARS-COV-2 PERFORMING LAB [facility] (test code = 3048771) Negative results do not preclude SARS-CoV-2 infection [...] of the Act.Fact Sheet for Healthcare Pro viders:https://www.barter.li/Documents/Xpert%20Xpress%20SARS%20CoV-2/Fact%20Sh eets/3023802%06LJAW-TRI-3%20HEALTHCARE%20PROVIDERS%20FACT%20SHEET.pdfFact Sheet for Healthcare Patients:https://www.Artklikk.Veebow/Documents/Xpert%20Xpress%20SARS%20CoV-2/Fact%20Sheets/3023801%20SARS-COV -2%20PATIENT%20FACT%20SHEET.pdfPerforming Laboratory:[facility], [place] [address]Mzqpko acid, venous [id number] 20:26:00 Test Item Value Reference Range Interpretation Comments Lactate, Venous (test code = 0.61 mmol/L 0.5-2.2 2872) MITCHELL (test code = MITCHELL) Contract Engineer ID - DB Lab Interpretation (test Normal code = 26849-2) [facility] CenterLACTIC ACID, [id number] 20:26:00 Test Item Value Reference Range Interpretation Comments LACTATE BLOOD VENOUS (2) (BEAKER) 0.61 mmol/L 0.50-2.20 (test code = 2872) Contract Engineer ID - DBRapid Influenza A&B [id number] 20:15:00 Test Item Value Reference Range Interpretation Comments Rapid Influenza A Antigen Negative Negative, Inconclusive (test code = 09036-4) Rapid influenza B Antigen Negative Negative, Inconclusive (test code = 43148-3) Lab Interpretation (test code Normal = 54629-8) [facility] CenterRAPID INFLUENZA A&B [id number] 20:15:00 Test Item Value Reference Range Interpretation Comments RAPID INFLUENZA A AG (BEAKER) Negative Negative, Inconclusive (test code = 1622) RAPID INFLUENZA B AG (BEAKER) Negative Negative, Inconclusive (test code = 1623) RAD, CHEST, 1 VIEW, NON [id number] 17:48:00Reason for exam:->FEVERReason for exam:->EMESISReason for exam:->WOUND CHECKShould this be performed at the bedside?->Yes [facility] 1960 Sex: MFINAL REPORT TECHNIQUE: Frontal view of the chest. INDICATION: FEVEREMESISWOUND CHECK COMPARISON: None. FINDINGS: LINES/TUBES: None. LUNGS: Increased interstitial opacities throughout the bilateral lungs.. No focal consolidation.. PLEURA: No pneumothorax or significant pleural effusion. HEART AND MEDIASTINUM: The cardiomediastinal silhouette is enlarged. Postsurgical changesnoted from median sternotomy.. SOFT TISSUES AND BONES: Unremarkable. IMPRESSION:Cardiomegaly with pulmonary edema. No significant pleural effusion.. TECHNIQUE: RAD, FOOT, MIN 3 VIEWS, RIGHT INDICATION: FEVEREMESISWOUND CHECK COMPARISON: 11/08/2019. 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 There are erosive changes ofthe second through fourth metatarsals, increased since previous exam. Diffuse vascular calcifications. There is diffuse soft tissue swelling. Multiple skin reggie. 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 Signed: Francisco Eraly MDReport Verified Date/Time: 01/06/2020 17:48:53 Reading Location: [facility] C013Y CT Body Reading Room RAD, FOOT, MIN 3 VIEWS, RIGHT 2020-01-06 17:48:00Reason for exam:->FEVERReason for exam:->EMESISReason for exam:->WOUND CHECK [facility] : 1960 Sex: MFINAL REPORT TECHNIQUE: Frontal view of the chest. INDICATION: FEVEREMESISWOUND CHECK COMPARISON: None. FINDINGS: LINES/TUBES: None. LUNGS: Increased interstitial opacities throughout the bilateral lungs.. No focal consolidation.. PLEURA: No pneumothorax or significant pleural effusion. HEART AND MEDIASTINUM: The cardiomediastinal silhouette is enlarged. Postsurgical changesnoted from median sternotomy.. SOFT TISSUES AND BONES: Unremarkable. IMPRESSION:Cardiomegaly with pulmonary edema. No significant pleural effusion.. TECHNIQUE: RAD, FOOT, MIN 3 VIEWS, RIGHT INDICATION: FEVEREMESISWOUND CHECK COMPARISON: 11/08/2019. 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 There are erosive changes ofthe second through fourth metatarsals, increased since previous exam. Diffuse vascular calcifications. There is diffuse soft tissue swelling. Multiple skin reggie. 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 Signed: Francisco Early MDReport Verified Date/Time: 01/06/2020 17:48:53 Reading Location: [address] Body Reading Room XR chest 1 view portable / [id number] 17:48:00Interface, External Ris In - 01/06/2020 5:51 PM CSTFINAL REPORT TECHNIQUE: Frontal view of the chest. INDICATION: FEVEREMESISWOUND CHECK COMPARISON: None. FINDINGS: LINES/TUBES: None. LUNGS: Increased interstitial opacities throughout the bilateral lungs.. No focal consolidation.. PLEURA: No pneumothorax or significant pleural effusion. HEART AND MEDIASTINUM: The cardiomediastinal silhouette is enlarged. Postsurgical changes noted from median sternotomy.. SOFT TISSUES AND BONES: Unremarkable. IMPRESSION:Cardiomegaly with pulmonary edema. No significant pleural effusion.. TECHNIQUE: RAD, FOOT, MIN 3 VIEWS, RIGHT INDICATION: FEVEREMESISWOUND CHECK COMPARISON: 11/08/2019. FINDINGS:Status post transmetatarsal amputation of the right foot and resection of the fifth ray. There are erosive changes of the second through fourth metatarsals, increased since previous exam. Diffuse vascular calcifications. There is diffuse soft tissue swelling. Multiple skin reggie. 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 Signed: Francisco Early Verified Date/Time: 01/06/2020 17:48:53 Reading Location: [facility] C013Y CT Body Reading [facility] CenterXR [facility] 3 views [id number] 17:48:00Interface, External Ris In - 01/06/2020 5:51 PM CSTFINAL REPORT TECHNIQUE: Frontal view of the chest. INDICATION: FEVEREMESISWOUND CHECK COMPARISON: None. FINDINGS: LINES/TUBES: None. LUNGS: Increased interstitial opacities throughout the bilateral lungs.. No focal consolidation.. PLEURA: No pneumothorax or significant pleural effusion. HEART AND MEDIASTINUM: The cardiomediastinal silhouette is enlarged. Postsurgical changes noted from median sternotomy.. SOFT TISSUES AND BONES: Unremarkable. IMPRESSION:Cardiomegaly with pulmonary edema. No significant pleural effusion.. TECHNIQUE: RAD, FOOT, MIN 3 VIEWS, RIGHT INDICATION: FEVEREMESISWOUND CHECK COMPARISON: 11/08/2019. FINDINGS:Status post transmetatarsal amputation of the right foot and resection of the fifth ray. There are erosive changes of the second through fourth metatarsals, increased since previous exam. Diffuse vascular calcifications. There is diffuse soft tissue swelling. Multiple skin reggie. 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 Signed: Francisco Early MDRaishwarya Verified Date/Time: 01/06/2020 17:48:53 Reading Location: [facility] B1 C013Y CT Body Reading [facility] CenterManual [id number] 17:30:00 Test Item Value Reference Range Interpretation Comments % Neutros (test code = 83 % 2816) % Lymphs (test code = 2 % 2817) % Monos (test code = 2 % 2818) % Eos (test code = 2819) 1 % % Baso (test code = 2820) 1 % % Bands (test code = 11 % 0-10 H 2826) # Neutros (test code = 19.92 K/ul 1.78-5.38 H 2830) # Lymphs (test code = 0.48 K/ul 1.32-3.57 L 2831) # Monos (test code = 0.48 K/uL 0.3-0.82 2832) # Eos (test code = 2834) 0.24 K/uL 0.04-0.54 # Baso (test code = 2835) 0.24 K/uL 0.01-0.08 H # Bands (test code = 2.64 K/uL 0-0.8 H 2840) Total Counted (test code 100 = 1351) Platelet Morphology (test Normal code = 486) Smudge Cells (test code = Present 1371) Hypochromia (test code = 2+ moderate 963) Anisocytosis (test code = 3+ many 961) Microcytes (test code = 3+ many 965) Poikilocytes (test code = 1+ few 966) Platelet Conc (test code Adequate = 3438) MITCHELL (test code = MITCHELL) Contract Engineer ID - ruth ann Amin comments: Slide comments: Lab Interpretation (test Abnormal code = 97317-6) [facility](CELLAVISION MANUAL DIFF)2020-01-06 17:30:00 Test Item Value Reference Range Interpretation Comments NEUTROPHILS - REL 83 % (CELLAVISION)(BEAKER) (test code = 2816) LYMPHOCYTES - REL 2 % (CELLAVISION)(BEAKER) (test code = 2817) MONOCYTES - REL 2 % (CELLAVISION)(BEAKER) (test code = 2818) EOSINOPHILS - REL 1 % (CELLAVISION)(BEAKER) (test code = 2819) BASOPHILS - REL 1 % (CELLAVISION)(BEAKER) (test code = 2820) BANDS - REL (CELLAVISION)(BEAKER) 11 % 0-10 H (test code = 2826) NEUTROPHILS - ABS 19.92 K/ul 1.78-5.38 H (CELLAVISION)(BEAKER) (test code = 2830) LYMPHOCYTES - ABS 0.48 K/ul 1.32-3.57 L (CELLAVISION)(BEAKER) (test code = 2831) MONOCYTES - ABS 0.48 K/uL 0.30-0.82 (CELLAVISION)(BEAKER) (test code = 2832) EOSINOPHILS - ABS 0.24 K/uL 0.04-0.54 (CELLAVISION)(BEAKER) (test code = 2834) BASOPHILS - ABS 0.24 K/uL 0.01-0.08 H (CELLAVISION)(BEAKER) (test code = 2835) BANDS - ABS (CELLAVISION)(BEAKER) 2.64 K/uL 0.00-0.80 H (test code = 2840) TOTAL COUNTED (BEAKER) (test code 100 = 1351) PLT MORPHOLOGY (BEAKER) (test Normal code = 486) SMUDGE CELLS (BEAKER) (test code Present = 1371) HYPOCHROMIA (BEAKER) (test code = 2+ moderate 963) ANISOCYTOSIS (BEAKER) (test code 3+ many = 961) MICROCYTES (BEAKER) (test code = 3+ many 965) POIKILOCYTES (BEAKER) (test code 1+ few = 966) PLATELET CONCENTRATION Adequate (CELLAVISION)(BEAKER) (test code = 3438) Contract Engineer ID - ruth ann Amin comments: Slide comments:[id number] 17:24:00 Test Item Value Reference Range Interpretation Comments PARTIAL THROMBOPLASTIN TIME 37.5 seconds 22.5-36.0 H (BEAKER) (test code = 760) POCT-GLUCOSE [id number] 17:23:00 Test Item Value Reference Range Interpretation Comments POC-GLUCOSE METER 145 mg/dL 70-110 H : Notified RN/MD: (BEAKER) (test code = TESTED AT [facility] 3892 0377) [place], [address]: Contract Engineer/Techni estefani ID = [id number] for ROMAIN REEVES PROTHROMBIN TIME/[id number] 17:23:00 Test Item Value Reference Range Interpretation Comments PROTIME (BEAKER) (test code = 17.7 seconds 11.9-14.2 H 759) INR (BEAKER) (test code = 370) 1.50 <=5.90 Effective 08/02/2018: PT Reference Range ChangeNew: 11.9-14.2 Previous: 11.7- 14.7RECOMMENDED COUMADIN/WARFARIN INR THERAPY RANGESSTANDARD DOSE: 2.0-3.0 Includes: PROPHYLAXIS for venous thrombosis, systemic embolization; TREATMENT for venous thrombosis and/or pulmonary embolus.HIGH RISK: Target INR is2.5-3.5 for patients wiht mechanical heart valves.HEPATIC FUNCTION [id number] 17:01:00 Test Item Value Reference Range Interpretation Comments TOTAL PROTEIN (BEAKER) (test code = 6.4 gm/dL 6.0-8.3 770) ALBUMIN (BEAKER) (test code = 1145) 2.9 g/dL 3.5-5.0 L BILIRUBIN TOTAL (BEAKER) (test code 0.3 mg/dL 0.2-1.2 = 377) BILIRUBIN DIRECT (BEAKER) (test 0.2 mg/dL 0.1-0.5 code = 706) ALKALINE PHOSPHATASE (BEAKER) (test 55 U/L 40-150 code = 346) AST (SGOT) (BEAKER) (test code = 11 U/L 5-34 353) ALT (SGPT) (BEAKER) (test code = 8 U/L 6-55 347) Contract Engineer ID - EDASIBASIC METABOLIC [id number] 17:01:00 Test Item Value Reference Range Interpretation Comments SODIUM (BEAKER) 135 meq/L 136-145 L (test code = 381) POTASSIUM (BEAKER) 4.1 meq/L 3.5-5.1 (test code = 379) CHLORIDE (BEAKER) 96 meq/L 98-107 L (test code = 382) CO2 (BEAKER) (test 27 meq/L 22-29 code = 355) BLOOD UREA NITROGEN 32 mg/dL 7-21 H (BEAKER) (test code = 354) CREATININE (BEAKER) 7.64 mg/dL 0.57-1.25 H (test code = 358) GLUCOSE RANDOM 147 mg/dL 70-105 H (BEAKER) (test code = 652) CALCIUM (BEAKER) 8.0 mg/dL 8.4-10.2 L (test code = 697) EGFR (BEAKER) (test 7 mL/min/1.73 ESTIMAT ED GFR IS code = 1092) sq m NOT ACCURATE CREATININE CLEARANCE IN PREDICTING GLOMERULAR FILTRATION RATE . ESTIMATED GFR I S NOT APPLICABLE FOR DIALYSIS PATIEN TS. Contract Engineer ID - EDASILACTIC ACID, [id number] 17:01:00 Test Item Value Reference Range Interpretation Comments LACTATE BLOOD VENOUS (2) (BEAKER) 1.36 mmol/L 0.50-2.20 (test code = 2872) Contract Engineer ID - EDASICBC W/PLT COUNT & AUTO [id number] 16:55:00 Test Item Value Reference Range Interpretation Comments WHITE BLOOD CELL COUNT (BEAKER) 24.0 K/ L 3.5-10.5 H (test code = 775) RED BLOOD CELL COUNT (BEAKER) 2.80 M/ L 4.63-6.08 L (test code = 761) HEMOGLOBIN (BEAKER) (test code = 6.5 GM/DL 13.7-17.5 L 410) HEMATOCRIT (BEAKER) (test code = 22.1 % 40.1-51.0 L 411) MEAN CORPUSCULAR VOLUME (BEAKER) 78.9 fL 79.0-92.2 L (test code = 753) MEAN CORPUSCULAR HEMOGLOBIN 23.2 pg 25.7-32.2 L (BEAKER) (test code = 751) MEAN CORPUSCULAR HEMOGLOBIN CONC 29.4 GM/DL 32.3-36.5 L (BEAKER) (test code = 752) RED CELL DISTRIBUTION WIDTH 16.8 % 11.6-14.4 H (BEAKER) (test code = 412) PLATELET COUNT (BEAKER) (test 339 K/CU MM 150-450 code = 756) MEAN PLATELET VOLUME (BEAKER) 9.3 fL 9.4-12.4 L (test code = 754) NUCLEATED RED BLOOD CELLS 0 /100 WBC 0-0 (BEAKER) (test code = 413) NEUTROPHILS RELATIVE PERCENT 91 % (BEAKER) (test code = 429) LYMPHOCYTES RELATIVE PERCENT 2 % (BEAKER) (test code = 430) MONOCYTES RELATIVE PERCENT 6 % (BEAKER) (test code = 431) EOSINOPHILS RELATIVE PERCENT 1 % (BEAKER) (test code = 432) BASOPHILS RELATIVE PERCENT 1 % (BEAKER) (test code = 437) NEUTROPHILS ABSOLUTE COUNT 21.78 K/ L 1.78-5.38 H (BEAKER) (test code = 670) LYMPHOCYTES ABSOLUTE COUNT 0.42 K/ L 1.32-3.57 L (BEAKER) (test code = 414) MONOCYTES ABSOLUTE COUNT (BEAKER) 1.38 K/ L 0.30-0.82 H (test code = 415) EOSINOPHILS ABSOLUTE COUNT 0.12 K/ L 0.04-0.54 (BEAKER) (test code = 416) BASOPHILS ABSOLUTE COUNT (BEAKER) 0.11 K/ L 0.01-0.08 H (test code = 417) IMMATURE GRANULOCYTES-RELATIVE 1 % 0-1 PERCENT (BEAKER) (test code = 2801) Blood gas, [id number] 16:47:00 Test Item Value Reference Range Interpretation Comments pH, Carlitos (test code = 7.50 7.32-7.42 H 2746-6) pCO2, [place]itos (test code = 40 See_Comment L [Aut omated message] 755) The system [employer] h generated this result transmit doris reference range : 41 - 51 mm Hg. The reference range was not used to interpret this result as normal/abnormal . pO2, Carlitos (test code = 35 See_Comment [Auto mated message] 2305-2) The system whic h generated this result transmit doris reference range : 25 - 40 mm Hg. The reference range was not used to interpret this result as normal/abnormal . O2 Sat, Carlitos (test code 72.8 % 40-70 H = 2711-0) HCO3, Carlitos (test code = 31 mmol/L 21-29 H 52262-7) Base Excess, Carlitos (test 7.1 mmol/L -2-3 H code = 1927-3) Patient Temperature 37.0 (test code = 8310-5) FIO2 (test code = 1819) 21 Lab Interpretation Abnormal (test code = 70934-0) [id number]:47:00 Test Item Value Reference Range Interpretation Comments PH VENOUS (BEAKER) (test code = 7.50 7.32-7.42 H 701) PCO2 VENOUS (BEAKER) (test code = 40 mm Hg 41-51 L 755) PO2 VENOUS (BEAKER) (test code = 35 mm Hg 25-40 702) O2 SATURATION VENOUS (BEAKER) 72.8 % 40.0-70.0 H (test code = 703) HCO3 VENOUS (BEAKER) (test code = 31 mmol/L 21-29 H 705) BASE EXCESS VENOUS (BEAKER) (test 7.1 mmol/L -2.0-3.0 H code = 704) PATIENT TEMPERATURE (BEAKER) (test 37.0 code = 1818) FIO2 (BEAKER) (test code = 1819) 21.0 [id number] 00:00:00Ordered by an unspecified provider.[facility] + [id number] 17:16:00 Test Item Value Reference Range Interpretation Comments CULTURE (BEAKER) A <1+ Ciarra (test code = parapsilosis 1095) FUNGUS SMEAR No fungal (BEAKER) (test elements seen code = 1406) AFB CULTURE + SMEAR (NON-SPUTUM)2019-12-25 10:35:00 Test Item Value Reference Range Interpretation Comments CULTURE (BEAKER) (test No acid-fast bacilli code = 1095) isolated in 42 days AFB SMEAR (BEAKER) No acid fast bacilli (test code = 994) seen HEMODIALYSIS [id number] 18:03:00Param Mera, SUNITA 12/24/2019 6:04 PMLab Results Component Value Date GLUCOSE 98 12/24/2019 CALCIUM 8.2 (L) 12/24/2019 NA 131 (L) 12/24/2019 K 4.5 12/24/2019 CO2 24 12/24/2019 CL 94 (L) 12/24/2019 BUN 44 (H) 12/24/2019 CREATININE 9.63 (H) 12/24/2019 Lab Results Component Value Date WBC9.9 12/24/2019 HGB 7.8 (L) 12/24/2019 HCT 26.7 (L) 12/24/2019 MCV 82.2 12/24/2019 PLT 432 12/24/2019 HBSAg - Nonreactive 12/23/2019 - S/P Hemodialysis x 3.5 hours. - Removed 3 L as tolerated. - Treatment tolerated well. Asymptomatic through out procedure - AVF (+) B/T. No S/Sx of infection noted. - Consent verified prior to initiation of treatment. - Report given to primary RN. Param Mera RNPomona [facility] Hospital Medical CenterHEMODIALYSIS [id number] 14:43:36AliViky DO 12/24/2019 2:53 PMIndication: ESRD, Volume overload, Anemia Reason for Exam: Ad just target weight, BP fluctuation Rx: F160, BFR 400cc/min, DFR 800 cc/min3.5 hrs, 2.0K, 140 Na, 35 HCO3, 2.5 Ca UF: 2-3LBP 134/73 | Pulse 65 | Temp 97.8 F (36.6 C) (Oral) | Resp 20 | Ht 1.854 m (6' 1") | Wt 98 kg (216 lb 0.8 oz) | SpO2 97% | BMI 28.50 kg/m2 Physical Exam GENERAL: no acute pain or respiratory distressHEENT: moist mucous membranesCARDIOVASCULAR: S1S2, no murmurs/rubs/gallops PULMONARY: lungs clear with good air entry no cracklesGASTROINTESTINAL: soft, non tender, notdistended, normal bowel sounds, no palpable massEXTREMITIES: no peripheral edema HD Access: LUE AVFLabs reviewed Patient tolerating dialysis OK. Accepted at [facility], awaiting confirmation of outpt HD Viky Karimi DO Wallpaper Inspector And Shipper ProfessorDivision of NephrologyDepartment of [facility]12/24/20192:43 [facility] POCT-GLUCOSE [id number] 11:45:00 Test Item Value Reference Range Interpretation Comments POC-GLUCOSE METER 126 mg/dL 70-110 H : TESTED A T [facility] 6720 (BEInaura) (test code [facility], = 1538) [id number]: Contract Engineer/Techni estefani ID = [id number] for WILS ON, SHASTANIE POCT-GLUCOSE [id number] 07:39:00 Test Item Value Reference Range Interpretation Comments POC-GLUCOSE METER 94 mg/dL 70-110 : TESTED A T [facility] 6720 (BEAKER) (test code = [place], 1538) [address]: Contract Engineer/Techni estefani ID = [id number] for JOSELIN ESCALONA CBC W/PLT COUNT & AUTO [id number] 05:28:00 Test Item Value Reference Range Interpretation Comments WHITE BLOOD CELL COUNT (BEAKER) 9.9 K/ L 3.5-10.5 (test code = 775) RED BLOOD CELL COUNT (BEAKER) 3.25 M/ L 4.63-6.08 L (test code = 761) HEMOGLOBIN (BEAKER) (test code = 7.8 GM/DL 13.7-17.5 L 410) HEMATOCRIT (BEAKER) (test code = 26.7 % 40.1-51.0 L 411) MEAN CORPUSCULAR VOLUME (BEAKER) 82.2 fL 79.0-92.2 (test code = 753) MEAN CORPUSCULAR HEMOGLOBIN 24.0 pg 25.7-32.2 L (BEAKER) (test code = 751) MEAN CORPUSCULAR HEMOGLOBIN CONC 29.2 GM/DL 32.3-36.5 L (BEAKER) (test code = 752) RED CELL DISTRIBUTION WIDTH 15.5 % 11.6-14.4 H (BEAKER) (test code = 412) PLATELET COUNT (BEAKER) (test 432 K/CU MM 150-450 code = 756) MEAN PLATELET VOLUME (BEAKER) 9.3 fL 9.4-12.4 L (test code = 754) NUCLEATED RED BLOOD CELLS 0 /100 WBC 0-0 (BEAKER) (test code = 413) NEUTROPHILS RELATIVE PERCENT 67 % (BEAKER) (test code = 429) LYMPHOCYTES RELATIVE PERCENT 12 % (BEAKER) (test code = 430) MONOCYTES RELATIVE PERCENT 10 % (BEAKER) (test code = 431) EOSINOPHILS RELATIVE PERCENT 9 % (BEAKER) (test code = 432) BASOPHILS RELATIVE PERCENT 1 % (BEAKER) (test code = 437) NEUTROPHILS ABSOLUTE COUNT 6.64 K/ L 1.78-5.38 H (BEAKER) (test code = 670) LYMPHOCYTES ABSOLUTE COUNT 1.19 K/ L 1.32-3.57 L (BEAKER) (test code = 414) MONOCYTES ABSOLUTE COUNT (BEAKER) 1.02 K/ L 0.30-0.82 H (test code = 415) EOSINOPHILS ABSOLUTE COUNT 0.86 K/ L 0.04-0.54 H (BEAKER) (test code = 416) BASOPHILS ABSOLUTE COUNT (BEAKER) 0.10 K/ L 0.01-0.08 H (test code = 417) IMMATURE GRANULOCYTES-RELATIVE 1 % 0-1 PERCENT (BEAKER) (test code = 2801) BASIC METABOLIC [id number] 05:25:00 Test Item Value Reference Range Interpretation Comments SODIUM (BEAKER) 131 meq/L 136-145 L (test code = 381) POTASSIUM (BEAKER) 4.5 meq/L 3.5-5.1 (test code = 379) CHLORIDE (BEAKER) 94 meq/L 98-107 L (test code = 382) CO2 (BEAKER) (test 24 meq/L 22-29 code = 355) BLOOD UREA NITROGEN 44 mg/dL 7-21 H (BEAKER) (test code = 354) CREATININE (BEAKER) 9.63 mg/dL 0.57-1.25 H (test code = 358) GLUCOSE RANDOM 98 mg/dL 70-105 (BEAKER) (test code = 652) CALCIUM (BEAKER) 8.2 mg/dL 8.4-10.2 L (test code = 697) EGFR (BEAKER) (test 6 mL/min/1.73 ESTIMAT ED GFR IS code = 1092) sq m NOT ACCURATE CREATININE CLEARANCE IN PREDICTING GLOMERULAR FILTRATION RATE . ESTIMATED GFR I S NOT APPLICABLE FOR DIALYSIS PATIEN TS. Contract Engineer ID - [id number] 05:03:00 Test Item Value Reference Range Interpretation Comments MAGNESIUM (BEAKER) (test code = 2.0 mg/dL 1.6-2.6 627) Contract Engineer ID - DBPOCT-GLUCOSE [id number] 21:31:00 Test Item Value Reference Range Interpretation Comments POC-GLUCOSE METER 138 mg/dL 70-110 H : TESTED A T [facility] 6720 (BEAKER) (test code = [place], 1538) [address]: Contract Engineer/Techni estefani ID = [id number] for PHIL MURRELL POCT-GLUCOSE [id number] 16:39:00 Test Item Value Reference Range Interpretation Comments POC-GLUCOSE METER 119 mg/dL 70-110 H : TESTED A T [facility] 6720 (BEAKER) (test code = [facility], 1538) [address]: Contract Engineer/Techni estefani ID = [id number] for NEETA ROLLINS POCT-GLUCOSE [id number] 11:42:00 Test Item Value Reference Range Interpretation Comments POC-GLUCOSE METER 133 mg/dL 70-110 H : TESTED A T [facility] 6720 (BEAKER) (test code = [facility], 1538) [address]: Contract Engineer/Techni estefani ID = [id number] for NEETA ROLLINS POCT-GLUCOSE [id number] 07:52:00 Test Item Value Reference Range Interpretation Comments POC-GLUCOSE METER 80 mg/dL 70-110 : TESTED A T [facility] 6720 (BEAKER) (test code = [facility], 1538) 35[address]: Contract Engineer/Techni estefani ID = [id number] for NEETA ASHLEY HEPATITIS B SURFACE [id number] 07:04:00 Test Item Value Reference Range Interpretation Comments HEPATITIS B SURFACE ANTIGEN (2) Nonreactive Nonreactive (BEAKER) (test code = 2585) Specimen is considered negative for HBsAg.BASIC METABOLIC [id number] 06:35:00 Test Item Value Reference Range Interpretation Comments SODIUM (BEAKER) 134 meq/L 136-145 L (test code = 381) POTASSIUM (BEAKER) 4.1 meq/L 3.5-5.1 (test code = 379) CHLORIDE (BEAKER) 96 meq/L 98-107 L (test code = 382) CO2 (BEAKER) (test 26 meq/L 22-29 code = 355) BLOOD UREA NITROGEN 34 mg/dL 7-21 H (BEAKER) (test code = 354) CREATININE (BEAKER) 8.11 mg/dL 0.57-1.25 H (test code = 358) GLUCOSE RANDOM 90 mg/dL 70-105 (BEAKER) (test code = 652) CALCIUM (BEAKER) 8.4 mg/dL 8.4-10.2 (test code = 697) EGFR (BEAKER) (test 7 mL/min/1.73 ESTIMAT ED GFR IS code = 1092) sq m NOT ACCURATE CREATININE CLEARANCE IN PREDICTING GLOMERULAR FILTRATION RATE . ESTIMATED GFR I S NOT APPLICABLE FOR DIALYSIS PATIEN TS. Contract Engineer ID - [id number] 06:26:00 Test Item Value Reference Range Interpretation Comments MAGNESIUM (BEAKER) (test code = 2.1 mg/dL 1.6-2.6 627) Contract Engineer ID - DBCBC W/PLT COUNT & AUTO [id number] 06:10:00 Test Item Value Reference Range Interpretation Comments WHITE BLOOD CELL COUNT (BEAKER) 9.2 K/ L 3.5-10.5 (test code = 775) RED BLOOD CELL COUNT (BEAKER) 3.29 M/ L 4.63-6.08 L (test code = 761) HEMOGLOBIN (BEAKER) (test code = 7.8 GM/DL 13.7-17.5 L 410) HEMATOCRIT (BEAKER) (test code = 27.5 % 40.1-51.0 L 411) MEAN CORPUSCULAR VOLUME (BEAKER) 83.6 fL 79.0-92.2 (test code = 753) MEAN CORPUSCULAR HEMOGLOBIN 23.7 pg 25.7-32.2 L (BEAKER) (test code = 751) MEAN CORPUSCULAR HEMOGLOBIN CONC 28.4 GM/DL 32.3-36.5 L (BEAKER) (test code = 752) RED CELL DISTRIBUTION WIDTH 15.6 % 11.6-14.4 H (BEAKER) (test code = 412) PLATELET COUNT (BEAKER) (test 411 K/CU MM 150-450 code = 756) MEAN PLATELET VOLUME (BEAKER) 9.5 fL 9.4-12.4 (test code = 754) NUCLEATED RED BLOOD CELLS 0 /100 WBC 0-0 (BEAKER) (test code = 413) NEUTROPHILS RELATIVE PERCENT 66 % (BEAKER) (test code = 429) LYMPHOCYTES RELATIVE PERCENT 14 % (BEAKER) (test code = 430) MONOCYTES RELATIVE PERCENT 11 % (BEAKER) (test code = 431) EOSINOPHILS RELATIVE PERCENT 7 % (BEAKER) (test code = 432) BASOPHILS RELATIVE PERCENT 1 % (BEAKER) (test code = 437) NEUTROPHILS ABSOLUTE COUNT 6.07 K/ L 1.78-5.38 H (BEAKER) (test code = 670) LYMPHOCYTES ABSOLUTE COUNT 1.27 K/ L 1.32-3.57 L (BEAKER) (test code = 414) MONOCYTES ABSOLUTE COUNT (BEAKER) 1.03 K/ L 0.30-0.82 H (test code = 415) EOSINOPHILS ABSOLUTE COUNT 0.66 K/ L 0.04-0.54 H (BEAKER) (test code = 416) BASOPHILS ABSOLUTE COUNT (BEAKER) 0.12 K/ L 0.01-0.08 H (test code = 417) IMMATURE GRANULOCYTES-RELATIVE 0 % 0-1 PERCENT (BEAKER) (test code = 2801) POCT-GLUCOSE [id number] 20:59:00 Test Item Value Reference Range Interpretation Comments POC-GLUCOSE METER 164 mg/dL 70-110 H : TESTED A T [facility] 6720 (BEAKER) (test code = [facility], [facility]) [address]: Contract Engineer/Techni estefani ID = [id number] for PHIL MURRELL POCT-GLUCOSE [id number] 17:56:00 Test Item Value Reference Range Interpretation Comments POC-GLUCOSE METER 121 mg/dL 70-110 H : TESTED A T [facility] 6720 (BEAKER) (test code = [facility], [facility]) 80[address]: Contract Engineer/Techni estefani ID = [id number] for NEETA ROLLINS POCT-GLUCOSE [id number] 14:21:00 Test Item Value Reference Range Interpretation Comments POC-GLUCOSE METER 152 mg/dL 70-110 H : TESTED A T [facility] 6720 (BEAKER) (test code = [facility], [facility]8) [address]: Contract Engineer/Techni estefani ID = [id number] for KALLI BOOGIE POCT-GLUCOSE [id number] 12:50:00 Test Item Value Reference Range Interpretation Comments POC-GLUCOSE METER 134 mg/dL 70-110 H : TESTED A T [facility] 6720 (BEAKER) (test code = [facility], [facility]8) [address]: Contract Engineer/Techni estefani ID = [id number] for NOAM GUADARRAMA, NEETA POCT-GLUCOSE [id number] 08:03:00 Test Item Value Reference Range Interpretation Comments POC-GLUCOSE METER 104 mg/dL 70-110 : TESTED A T [facility] 6720 (BEAKER) (test code = DASIA [place], 1538) [address]: Contract Engineer/Techni estefani ID = [id number] for NEETA ROLLINS BASIC METABOLIC [id number] 07:07:00 Test Item Value Reference Range Interpretation Comments SODIUM (BEAKER) 138 meq/L 136-145 (test code = 381) POTASSIUM (BEAKER) 4.2 meq/L 3.5-5.1 (test code = 379) CHLORIDE (BEAKER) 98 meq/L 98-107 (test code = 382) CO2 (BEAKER) (test 29 meq/L 22-29 code = 355) BLOOD UREA NITROGEN 24 mg/dL 7-21 H (BEAKER) (test code = 354) CREATININE (BEAKER) 5.84 mg/dL 0.57-1.25 H (test code = 358) GLUCOSE RANDOM 108 mg/dL 70-105 H (BEAKER) (test code = 652) CALCIUM (BEAKER) 8.2 mg/dL 8.4-10.2 L (test code = 697) EGFR (BEAKER) (test 10 mL/min/1.73 ESTIMA DORIS GFR IS code = 1092) sq m NOT ACCURATE CREATININE CLEARANCE IN PREDICTING GLOMERULAR FILTRATION RATE . ESTIMATED GFR I S NOT APPLICABLE FOR DIALYSIS PATIEN TS. Contract Engineer ID - [id number] 07:00:00 Test Item Value Reference Range Interpretation Comments MAGNESIUM (BEAKER) (test code = 1.9 mg/dL 1.6-2.6 627) Contract Engineer ID - EDASICBC W/PLT COUNT & AUTO [id number] 06:15:00 Test Item Value Reference Range Interpretation Comments WHITE BLOOD CELL COUNT (BEAKER) 10.1 K/ L 3.5-10.5 (test code = 775) RED BLOOD CELL COUNT (BEAKER) 3.34 M/ L 4.63-6.08 L (test code = 761) HEMOGLOBIN (BEAKER) (test code = 8.1 GM/DL 13.7-17.5 L 410) HEMATOCRIT (BEAKER) (test code = 27.8 % 40.1-51.0 L 411) MEAN CORPUSCULAR VOLUME (BEAKER) 83.2 fL 79.0-92.2 (test code = 753) MEAN CORPUSCULAR HEMOGLOBIN 24.3 pg 25.7-32.2 L (BEAKER) (test code = 751) MEAN CORPUSCULAR HEMOGLOBIN CONC 29.1 GM/DL 32.3-36.5 L (BEAKER) (test code = 752) RED CELL DISTRIBUTION WIDTH 15.5 % 11.6-14.4 H (BEAKER) (test code = 412) PLATELET COUNT (BEAKER) (test 390 K/CU MM 150-450 code = 756) MEAN PLATELET VOLUME (BEAKER) 9.1 fL 9.4-12.4 L (test code = 754) NUCLEATED RED BLOOD CELLS 0 /100 WBC 0-0 (BEAKER) (test code = 413) NEUTROPHILS RELATIVE PERCENT 71 % (BEAKER) (test code = 429) LYMPHOCYTES RELATIVE PERCENT 10 % (BEAKER) (test code = 430) MONOCYTES RELATIVE PERCENT 10 % (BEAKER) (test code = 431) EOSINOPHILS RELATIVE PERCENT 7 % (BEAKER) (test code = 432) BASOPHILS RELATIVE PERCENT 1 % (BEAKER) (test code = 437) NEUTROPHILS ABSOLUTE COUNT 7.19 K/ L 1.78-5.38 H (BEAKER) (test code = 670) LYMPHOCYTES ABSOLUTE COUNT 1.01 K/ L 1.32-3.57 L (BEAKER) (test code = 414) MONOCYTES ABSOLUTE COUNT (BEAKER) 1.02 K/ L 0.30-0.82 H (test code = 415) EOSINOPHILS ABSOLUTE COUNT 0.71 K/ L 0.04-0.54 H (BEAKER) (test code = 416) BASOPHILS ABSOLUTE COUNT (BEAKER) 0.11 K/ L 0.01-0.08 H (test code = 417) IMMATURE GRANULOCYTES-RELATIVE 0 % 0-1 PERCENT (BEAKER) (test code = 2801) POCT-GLUCOSE [id number] 22:35:00 Test Item Value Reference Range Interpretation Comments POC-GLUCOSE METER 152 mg/dL 70-110 H : TESTED A T [facility] 6720 (BEAKER) (test code = [place], 1538) [address]: Contract Engineer/Techni estefani ID = [id number] for PE ESTUARDO WILL HEMODIALYSIS [id number] 16:20:Avery Avalos RN 12/21/2019 4:21 PMTolerated and completed 3 hours and 0 minutes. No distressnoted, asymptomatic. Denies any discomfort and pain.UF fluid removed 1.5 liters.Secured access with p ressure dressing gauze and tape. No further bleeding nted. Report given to Primary Nurse patient stable Latest lab result:Lab Results Component Value Date WBC 9.4 12/21/2019 HGB 8.2 (L) 12/21/2019 HCT 28.0 (L) 12/21/2019 MCV 82.8 12/21/2019 PLT 393 12/21/2019 Lab Results Component Value Date GLUCOSE 111 (H) 12/21/2019 CALCIUM 8.1 (L) 12/21/2019 NA 137 12/21/2019 K 4.6 12/21/2019 CO2 28 12/21/2019 CL 97 (L) 12/21/2019 BUN 34 (H) 12/21/2019 CREATININE 8.20 (H) 12/21/2019 Avery OAKLEY, RN II7S6- Adult [id number] [address] [id number] 15:46:00 Test Item Value Reference Range Interpretation Comments POC-GLUCOSE METER 93 mg/dL 70-110 : TESTED A T [facility] 6720 (BEAKER) (test code = [facility], 1538) 16[address]: Contract Engineer/Techni estefani ID = [id number] for Dania dian Avery POCT-GLUCOSE [id number] 08:50:00 Test Item Value Reference Range Interpretation Comments POC-GLUCOSE METER 143 mg/dL 70-110 H : TESTED A T [facility] 6720 (BEAKER) (test code = [facility], 1538) 47[address]: Contract Engineer/Techni estefani ID = [id number] for IAIN EASTON BASIC METABOLIC [id number] 06:41:00 Test Item Value Reference Range Interpretation Comments SODIUM (BEAKER) 137 meq/L 136-145 (test code = 381) POTASSIUM (BEAKER) 4.6 meq/L 3.5-5.1 (test code = 379) CHLORIDE (BEAKER) 97 meq/L 98-107 L (test code = 382) CO2 (BEAKER) (test 28 meq/L 22-29 code = 355) BLOOD UREA NITROGEN 34 mg/dL 7-21 H (BEAKER) (test code = 354) CREATININE (BEAKER) 8.20 mg/dL 0.57-1.25 H (test code = 358) GLUCOSE RANDOM 111 mg/dL 70-105 H (BEAKER) (test code = 652) CALCIUM (BEAKER) 8.1 mg/dL 8.4-10.2 L (test code = 697) EGFR (BEAKER) (test 7 mL/min/1.73 ESTIMAT ED GFR IS code = 1092) sq m NOT ACCURATE CREATININE CLEARANCE IN PREDICTING GLOMERULAR FILTRATION RATE . ESTIMATED GFR I S NOT APPLICABLE FOR DIALYSIS PATIEN TS. Contract Engineer ID - [id number] 06:40:00 Test Item Value Reference Range Interpretation Comments MAGNESIUM (BEAKER) (test code = 2.0 mg/dL 1.6-2.6 627) Contract Engineer ID - EDASICBC W/PLT COUNT & AUTO [id number] 05:58:00 Test Item Value Reference Range Interpretation Comments WHITE BLOOD CELL COUNT (BEAKER) 9.4 K/ L 3.5-10.5 (test code = 775) RED BLOOD CELL COUNT (BEAKER) 3.38 M/ L 4.63-6.08 L (test code = 761) HEMOGLOBIN (BEAKER) (test code = 8.2 GM/DL 13.7-17.5 L 410) HEMATOCRIT (BEAKER) (test code = 28.0 % 40.1-51.0 L 411) MEAN CORPUSCULAR VOLUME (BEAKER) 82.8 fL 79.0-92.2 (test code = 753) MEAN CORPUSCULAR HEMOGLOBIN 24.3 pg 25.7-32.2 L (BEAKER) (test code = 751) MEAN CORPUSCULAR HEMOGLOBIN CONC 29.3 GM/DL 32.3-36.5 L (BEAKER) (test code = 752) RED CELL DISTRIBUTION WIDTH 15.5 % 11.6-14.4 H (BEAKER) (test code = 412) PLATELET COUNT (BEAKER) (test 393 K/CU MM 150-450 code = 756) MEAN PLATELET VOLUME (BEAKER) 9.3 fL 9.4-12.4 L (test code = 754) NUCLEATED RED BLOOD CELLS 0 /100 WBC 0-0 (BEAKER) (test code = 413) NEUTROPHILS RELATIVE PERCENT 64 % (BEAKER) (test code = 429) LYMPHOCYTES RELATIVE PERCENT 14 % (BEAKER) (test code = 430) MONOCYTES RELATIVE PERCENT 11 % (BEAKER) (test code = 431) EOSINOPHILS RELATIVE PERCENT 9 % (BEAKER) (test code = 432) BASOPHILS RELATIVE PERCENT 1 % (BEAKER) (test code = 437) NEUTROPHILS ABSOLUTE COUNT 6.04 K/ L 1.78-5.38 H (BEAKER) (test code = 670) LYMPHOCYTES ABSOLUTE COUNT 1.29 K/ L 1.32-3.57 L (BEAKER) (test code = 414) MONOCYTES ABSOLUTE COUNT (BEAKER) 1.04 K/ L 0.30-0.82 H (test code = 415) EOSINOPHILS ABSOLUTE COUNT 0.88 K/ L 0.04-0.54 H (BEAKER) (test code = 416) BASOPHILS ABSOLUTE COUNT (BEAKER) 0.11 K/ L 0.01-0.08 H (test code = 417) IMMATURE GRANULOCYTES-RELATIVE 0 % 0-1 PERCENT (BEAKER) (test code = 2801) SARS-COV2/RT-PCR ([facility])2019-12-21 00:21:00 Test Item Value Reference Range Interpretation Comments SARS-COV2/RT-PCR (test Negative Not Detected, Negative, code = 1748438) See external report for linked test SARS-COV-2 PERFORMING LAB [facility] (test code = 4368564) Negative result for this test determines that SARS-CoV-2 RNA was not present in the specimen above the Limit of Detection (LOD). However, Negative results do not preclude SARS-CoV-2 infection and should not be used as the sole basis for treatment or patient management decisions. Negative results mustbe combined with clinical observations, patient history, and epidemiological information. A false negative result may occur if a specimen is improperly collected, transported or handled. A false negative result should be considered if patient's recent exposures or clinical presentation indicate that COVID-19 (SARS-CoV-2) is likely and diagnostic tests for other causes of illness are negative. Re-testing should be considered in cases of suspected false negatives.The limit of detection for this assay is 800 copies/mL.This SARS CoV-2 test is a real-time RT-PCR test intended for the qualitative detection of nucleic acid from SARS-CoV-2 in a nasopharyngeal swab specimen collected from individuals susp ected of COVID-19 by their healthcare provider.This test has not been Food and Drug Administration (FDA) cleared or approved. This is a modified version of an approved Emergency Use Authorization (EUA) and is in the process of review by the FDA. Once authorized by the FDA, the issued EUA will be effective until the declaration that circumstances exist justifying the authorization of the emergency use of in vitro diagnostic tests for detection and/or diagnosis of COVID-19 is terminated under Section 564(b)(2) of the Act or the EUA is revoked under Section 564(g) of the Act.Fact Sheet for Healthcare Providers:https://www.[employer]/sites/default/files/product/documents/Fact_Shee j_LR_Dzkolepjk_Icse_BLCJ-ZtK-8.pdfFact Sheet for Healthcare Patients:https://www.[employer]/sites/default/files/product/ documents/Sejc_Sfeca_Bliyiedn_Prye_DWUS-GbZ-7.pdfPerforming Laboratory:[facility], [place] [id number]-[id number] METER 2019-12-20 20:53:00 Test Item Value Reference Range Interpretation Comments POC-GLUCOSE METER 180 mg/dL 70-110 H : Notified RN/MD: (NOE) (test code = TESTED AT [facility] 67[address] 1538) [facility], [address]: Contract Engineer/Techni estefani ID = [id number] for ELMIRA LOPEZ POCT-GLUCOSE [id number] 16:41:00 Test Item Value Reference Range Interpretation Comments POC-GLUCOSE METER 167 mg/dL 70-110 H : [facility] (Shutl) (test code [facility], = 1538) [address]: Contract Engineer/Techni estefani ID = [id number] for JOSELIN ESCALONA POCT-GLUCOSE [id number] 12:02:00 Test Item Value Reference Range Interpretation Comments POC-GLUCOSE METER 158 mg/dL 70-110 H : [facility] (Shutl) (test code [facility], = 1538) [address]: Contract Engineer/Techni estefani ID = [id number] for WILS ON, JORGESTANIE POCT-GLUCOSE [id number] 07:49:00 Test Item Value Reference Range Interpretation Comments POC-GLUCOSE METER 116 mg/dL 70-110 H : TESTED A T [facility] 6720 (BEAKER) (test code [facility], = 1538) [address]: Contract Engineer/Techni estefani ID = [id number] for WILS ON, SHASTANIE BASIC METABOLIC [id number] 06:52:00 Test Item Value Reference Range Interpretation Comments SODIUM (BEAKER) 138 meq/L 136-145 (test code = 381) POTASSIUM (BEAKER) 4.4 meq/L 3.5-5.1 (test code = 379) CHLORIDE (BEAKER) 98 meq/L 98-107 (test code = 382) CO2 (BEAKER) (test 29 meq/L 22-29 code = 355) BLOOD UREA NITROGEN 25 mg/dL 7-21 H (BEAKER) (test code = 354) CREATININE (BEAKER) 6.21 mg/dL 0.57-1.25 H (test code = 358) GLUCOSE RANDOM 111 mg/dL 70-105 H (BEAKER) (test code = 652) CALCIUM (BEAKER) 7.9 mg/dL 8.4-10.2 L (test code = 697) EGFR (BEAKER) (test 9 mL/min/1.73 ESTIMAT ED GFR IS code = 1092) sq m NOT ACCURATE CREATININE CLEARANCE IN PREDICTING GLOMERULAR FILTRATION RATE . ESTIMATED GFR I S NOT APPLICABLE FOR DIALYSIS PATIEN TS. Contract Engineer ID - JAQUELINE [id number] 06:40:00 Test Item Value Reference Range Interpretation Comments MAGNESIUM (BEAKER) (test code = 1.9 mg/dL 1.6-2.6 627) Contract Engineer ID - JAQUELINE [facility] W/PLT COUNT & AUTO [id number] 05:53:00 Test Item Value Reference Range Interpretation Comments WHITE BLOOD CELL COUNT (BEAKER) 9.6 K/ L 3.5-10.5 (test code = 775) RED BLOOD CELL COUNT (BEAKER) 3.20 M/ L 4.63-6.08 L (test code = 761) HEMOGLOBIN (BEAKER) (test code = 7.9 GM/DL 13.7-17.5 L 410) HEMATOCRIT (BEAKER) (test code = 26.9 % 40.1-51.0 L 411) MEAN CORPUSCULAR VOLUME (BEAKER) 84.1 fL 79.0-92.2 (test code = 753) MEAN CORPUSCULAR HEMOGLOBIN 24.7 pg 25.7-32.2 L (BEAKER) (test code = 751) MEAN CORPUSCULAR HEMOGLOBIN CONC 29.4 GM/DL 32.3-36.5 L (BEAKER) (test code = 752) RED CELL DISTRIBUTION WIDTH 15.5 % 11.6-14.4 H (BEAKER) (test code = 412) PLATELET COUNT (BEAKER) (test 388 K/CU MM 150-450 code = 756) MEAN PLATELET VOLUME (BEAKER) 9.5 fL 9.4-12.4 (test code = 754) NUCLEATED RED BLOOD CELLS 0 /100 WBC 0-0 (BEAKER) (test code = 413) NEUTROPHILS RELATIVE PERCENT 65 % (BEAKER) (test code = 429) LYMPHOCYTES RELATIVE PERCENT 15 % (BEAKER) (test code = 430) MONOCYTES RELATIVE PERCENT 11 % (BEAKER) (test code = 431) EOSINOPHILS RELATIVE PERCENT 8 % (BEAKER) (test code = 432) BASOPHILS RELATIVE PERCENT 1 % (BEAKER) (test code = 437) NEUTROPHILS ABSOLUTE COUNT 6.18 K/ L 1.78-5.38 H (BEAKER) (test code = 670) LYMPHOCYTES ABSOLUTE COUNT 1.45 K/ L 1.32-3.57 (BEAKER) (test code = 414) MONOCYTES ABSOLUTE COUNT (BEAKER) 1.07 K/ L 0.30-0.82 H (test code = 415) EOSINOPHILS ABSOLUTE COUNT 0.75 K/ L 0.04-0.54 H (BEAKER) (test code = 416) BASOPHILS ABSOLUTE COUNT (BEAKER) 0.11 K/ L 0.01-0.08 H (test code = 417) IMMATURE GRANULOCYTES-RELATIVE 0 % 0-1 PERCENT (BEAKER) (test code = 2801) POCT-GLUCOSE [id number] 20:47:00 Test Item Value Reference Range Interpretation Comments POC-GLUCOSE METER 221 mg/dL 70-110 H : Notified RN/MD: (NOE) (test code = TESTED AT [facility] [id number] 1538) [facility], [id number]: Contract Engineer/Techni estefani ID = [id number] for ELMIRA LOPEZ ANAEROBIC [id number] 20:08:00 Test Item Value Reference Range Interpretation Comments CULTURE (NOE) (test No anaerobes isolated code = 1095) POCT-GLUCOSE [id number] 16:36:00 Test Item Value Reference Range Interpretation Comments POC-GLUCOSE METER 190 mg/dL 70-110 H : TESTED A T [facility] 6720 (NOE) (test code [facility], = 1538) 11399: Contract Engineer/Techni estefani ID = [id number] for JOSELIN ESCALONA HEMODIALYSIS [id number] 14:03:09Angelica Rutherford RN 12/19/2019 2:03 PM4 hours of HD completed, Net UF of 3 L, Pt tolerated tx well. Fistula needles removed, held manual pressure until bleeding controlled. Reports given to primary RN. BP 148/73 | Pulse 74 | Temp 96.3 F (35.7 C) (Temporal Artery) | Resp 14 | Ht 1.854 m(6' 1") | Wt (!) 102.5 kg (225 lb 15.5 oz) | SpO2 98% | BMI 29.81 kg/m2 Lab Results Component Value Date GLUCOSE 92 12/19/2019 CALCIUM 7.8 (L) 12/19/2019 NA 136 12/19/2019 K 4.6 12/19/2019 CO2 25 12/19/2019 CL 98 12/19/2019 BUN 46 (H) 12/19/2019 CREATININE 9.30 (H) 12/19/2019 Lab ResultsComponent Value Date WBC 9.6 12/19/2019 HGB 7.8 (L) 12/19/2019 HCT 26.8 (L) 12/19/2019 MCV 83.5 12/19/2019 PLT 384 12/19/2019 Lab Results Component Value Date HEPBSAG Nonreactive 11/21/2019 No results found for: HEPBSAB No Known Allergies No chief complaint on file. Active Ambulatory Problems Diagnosis Date Noted Non-healing wound of amputation stump (HCC) 06/14/2019 Ischemia of foot 06/14/2019 Type 2 diabetes mellitus with diabetic peripheral angiopathy and gangrene, with long-term current use of insulin ([facility]) 06/14/2019 PAD (peripheral artery disease) ([facility]) 06/14/2019 ESRD on hemodialysis ([facility]) Status post transmetatarsal amputation of foot, right ([facility]) 10/18/2019 Status post skin graft using Integra wound dressing 10/18/2019 DM (diabetes mellitus) type II, controlled, with peripheral vascular disorder ([facility]) 10/18/2019 HTN (hypertension) 10/20/2019 Thrombophlebitis 10/20/2019 Gangrene of right foot ([facility]) 11/06/2019 Resolved AmbulatoryProblems Diagnosis Date Noted Sepsis ([facility]) 11/05/2019 Cellulitis of right lower extremity 11/06/2019 Hyperkalemia 11/06/2019 Past Medical History: Diagnosis Date Blind left eye CKD (chronic kidney disease) stage V requiring chronic dialysis ([facility]) 06/14/2019 Diabetes mellitus ([facility]) Diabetes mellitus with neuropathy ([facility]) Hemodialysis access, fistula mature ([facility]) Hx of CABG 09/2018 Poor historian Past Surgical History: Procedure Laterality Date AMPUTA TION,FOOT Right 06/19/2019 Procedure: AMPUTATION,FOOT; Surgeon: Star Cloud DPM; Location: [facility] OR; Service: Podiatry; Laterality: Right; AMPUTATION,FOOT Right 10/18/2019 Procedure: AMPUTATION,FOOT; Surgeon: Star Cloud DPM; Location: [facility] OR; Service: Podiatry; Laterality: Right; REVISION OF AMPUTATED FOOT AMPUTATION,FOOT Right 11/08/2019 Procedure: AMPUTATION,FOOT; Surgeon: Star Cloud DPM; Location: [facility]; Service: Podiatry; Laterality: Right; AMPUTATION,TOE Right 06/19/2019 Procedure: AMPUTATION,TOE; Surgeon: Star Cloud DPM; Location: [facility] OR; Service: Podiatry; Laterality: Right; AMPUTATION 4TH DIGIT PARTIAL, 2nd ,3rd ,4th RAY AMPUTATION RIGHT FOOT WITH POSSIBLE TRANSMETATARASAL AMPUTATION WITH SPY MACHINE,PULSE LAVAGE AND VERSAJET CORONARY ARTERY BYPASS GRAFT 09/2018 DEBRIDEMENT/I&D,WOUND EXTREMITY LOWER Right 10/18/2019 Procedure: DEBRIDEMENT/I&D,WOUND EXTREMITY LOWER; Surgeon: Star Cloud DPM; Location: [facility] OR; Service: Podiatry; Laterality: Right; REVISION OF TRANSMETASAL WOUND/ESCHAR DEBRIDEMENT, POSSIBLE RESECTION OF BONE, IRRIGATION OF WOUND, APPLICATION OF ACELLULAR DERMAL MTRIX, WITHPULSE LAVAGE, POSSIBLE WOUND VAC, GRAFT JACKET, DERMACELL, VERSA JET DEBRIDEMENT/I&D,WOUND EXTREMITY LOWER Right 11/08/2019 Procedure: DEBRIDEMENT/I&D,WOUND EXTREMITY LOWER; Surgeon: Star Cloud DPM; Location: [facility]; Service: Podiatry; Laterality: Right; REVISION OF POST WOUND TRANSMETATARSAL AMPUTATION , DEBRIDEMENT, PULSE LAVAGE, ALCON APPLICATION OF ACCEULLAR DERMAL MATRIX, RIGHT FOOT, POSSIBLE BONE RESECTION DEBRIDEMENT/I&D,WOUND EXTREMITY LOWER Right 12/11/2019 Procedure: DEBRIDEMENT/I&D,WOUND EXTREMITY LOWER; Surgeon: Star Cloud DPM; Location: [facility]; Service: Podiatry; Laterality: Right; REVISION OF NON HEALING POST TRANSMETATARSAL AMPUTATION WOUND WITH APPLICATION OF ACELLULAR DERMAL MATRIX RIGHT FOOT FOOT AMPUTATION THROUGH METATARSAL Left 2010 OSTECTOMY,FOOT/ TOE Right 06/19/2019 Procedure: OSTECTOMY,FOOT/ TOE; Surgeon: tSar Cloud DPM; Location: [facility] OR; Service: Podiatry; Laterality: Right; OSTECTOMY,FOOT/ TOE Right 10/18/2019 Procedure: OSTECTOMY,FOOT/ TOE; Surgeon: Star Cloud DPM; Location: [facility]; Service: Podiatry; Laterality: Right; OSTECTOMY,FOOT/ TOE Right 11/08/2019 Procedure: OSTECTOMY,FOOT/ TOE; Surgeon: Star Cloud DPM; Location: [facility]; Service: Podiatry; Laterality: Right; PERIPHERAL ANGIOS / AORTOGRAM Bilateral 06/15/2019 Procedure: PERIPHERAL ANGIOS /AORTOGRAM; Surgeon: Clark Danielle MD; Location: [facility]; Service: General Surgery; Laterality: Bilateral; PERIPHERAL ANGIOS / AORTOGRAM Right 11/15/2019 Procedure: PERIPHERAL ANGIOS / AORTOGRAM; Surgeon: Clark Danielle MD; Location: [facility]; Service: General Surgery; Laterality: Right; PLACEMENT,WOUND VAC Right 10/18/2019 Procedure: PLACEMENT,WOUND VAC; Surgeon: Star Cloud DPM; Location: [facility]; Service: Podiatry; Laterality: Right; PROCEDURE W/SPY ELITE FLUORESCENT VASCULAR ANGIOGRAPHY N/A 06/19/2019 Procedure: PROCEDURE W/ SPY ELITE FLUORESCENT VASCULAR ANGIOGRAPHY; Surgeon: Star Cloud DPM; Location: [facility] OR; Service: Podiatry; Laterality: N/A; SKIN GRAFT,SKIN SUBSTITUTE Right 10/18/2019 Procedure: SKIN GRAFT,SKIN SUBSTITUTE; Surgeon: Star Cloud DPM; Location: [facility]; Service: Podiatry; Laterality: Right; WITH 8X12 CM DERMACELL SKIN GRAFT,SKIN SUBSTITUTE Right 11/08/2019 Procedure: SKIN GRAFT,SKIN SUBSTITUTE; Surgeon: Star Cloud DPM; Location: [facility]; Service: Podiatry; Laterality: Right; SKIN GRAFT,SKIN SUBSTITUTE Right 12/11/2019 Procedure: SKIN GRAFT,SKIN SUBSTITUTE; Surgeon:Star Cloud DPM; Location: [facility]; Service: Podiatry; Laterality: Right; TOE AMPUTATION Right 2nd toe 05/2019, 3rd toe 06/2019 wound debridement back 2016 wound debridement /staph infection [facility] [id number] 09:20:00 Test Item Value Reference Range Interpretation Comments POC-GLUCOSE METER 106 mg/dL 70-110 : TESTED A T [facility] 6720 (BEAKER) (test code [facility], = 1538) 81843: Contract Engineer/Techni estefani ID = [id number] for JOSELIN ESCALONA BASIC METABOLIC [id number] 05:49:00 Test Item Value Reference Range Interpretation Comments SODIUM (BEAKER) 136 meq/L 136-145 (test code = 381) POTASSIUM (BEAKER) 4.6 meq/L 3.5-5.1 (test code = 379) CHLORIDE (BEAKER) 98 meq/L 98-107 (test code = 382) CO2 (BEAKER) (test 25 meq/L 22-29 code = 355) BLOOD UREA NITROGEN 46 mg/dL 7-21 H (BEAKER) (test code = 354) CREATININE (BEAKER) 9.30 mg/dL 0.57-1.25 H (test code = 358) GLUCOSE RANDOM 92 mg/dL 70-105 (BEAKER) (test code = 652) CALCIUM (BEAKER) 7.8 mg/dL 8.4-10.2 L (test code = 697) EGFR (BEAKER) (test 6 mL/min/1.73 ESTIMAT ED GFR IS code = 1092) sq m NOT ACCURATE CREATININE CLEARANCE IN PREDICTING GLOMERULAR FILTRATION RATE . ESTIMATED GFR I S NOT APPLICABLE FOR DIALYSIS PATIEN TS. Contract Engineer ID - JAQUELINE [id number] 05:48:00 Test Item Value Reference Range Interpretation Comments MAGNESIUM (BEAKER) (test code = 2.1 mg/dL 1.6-2.6 627) Contract Engineer ID - JAQUELINE MCBC W/PLT COUNT & AUTO [id number] 05:44:00 Test Item Value Reference Range Interpretation Comments WHITE BLOOD CELL COUNT (BEAKER) 9.6 K/ L 3.5-10.5 (test code = 775) RED BLOOD CELL COUNT (BEAKER) 3.21 M/ L 4.63-6.08 L (test code = 761) HEMOGLOBIN (BEAKER) (test code = 7.8 GM/DL 13.7-17.5 L 410) HEMATOCRIT (BEAKER) (test code = 26.8 % 40.1-51.0 L 411) MEAN CORPUSCULAR VOLUME (BEAKER) 83.5 fL 79.0-92.2 (test code = 753) MEAN CORPUSCULAR HEMOGLOBIN 24.3 pg 25.7-32.2 L (BEAKER) (test code = 751) MEAN CORPUSCULAR HEMOGLOBIN CONC 29.1 GM/DL 32.3-36.5 L (BEAKER) (test code = 752) RED CELL DISTRIBUTION WIDTH 15.7 % 11.6-14.4 H (BEAKER) (test code = 412) PLATELET COUNT (BEAKER) (test 384 K/CU MM 150-450 code = 756) MEAN PLATELET VOLUME (BEAKER) 9.7 fL 9.4-12.4 (test code = 754) NUCLEATED RED BLOOD CELLS 0 /100 WBC 0-0 (BEAKER) (test code = 413) NEUTROPHILS RELATIVE PERCENT 69 % (BEAKER) (test code = 429) LYMPHOCYTES RELATIVE PERCENT 13 % (BEAKER) (test code = 430) MONOCYTES RELATIVE PERCENT 11 % (BEAKER) (test code = 431) EOSINOPHILS RELATIVE PERCENT 6 % (BEAKER) (test code = 432) BASOPHILS RELATIVE PERCENT 1 % (BEAKER) (test code = 437) NEUTROPHILS ABSOLUTE COUNT 6.56 K/ L 1.78-5.38 H (BEAKER) (test code = 670) LYMPHOCYTES ABSOLUTE COUNT 1.23 K/ L 1.32-3.57 L (BEAKER) (test code = 414) MONOCYTES ABSOLUTE COUNT (BEAKER) 1.03 K/ L 0.30-0.82 H (test code = 415) EOSINOPHILS ABSOLUTE COUNT 0.61 K/ L 0.04-0.54 H (BEAKER) (test code = 416) BASOPHILS ABSOLUTE COUNT (BEAKER) 0.10 K/ L 0.01-0.08 H (test code = 417) IMMATURE GRANULOCYTES-RELATIVE 0 % 0-1 PERCENT (BEAKER) (test code = 2801) POCT-GLUCOSE [id number] 20:14:00 Test Item Value Reference Range Interpretation Comments POC-GLUCOSE METER 181 mg/dL 70-110 H : TESTED A T [facility] 6720 (BEAKER) (test code = [facility], 153) 59920: Contract Engineer/Techni estefani ID = [id number] for CR BERT NELLI POCT-GLUCOSE [id number] 18:20:00 Test Item Value Reference Range Interpretation Comments POC-GLUCOSE METER 148 mg/dL 70-110 H : TESTED A T [facility] 6720 (BEAKER) (test code = [facility], 153) 23104: Contract Engineer/Techni estefani ID = [id number] for GR AHAM, KAREN BASIC METABOLIC [id number] 06:50:00 Test Item Value Reference Range Interpretation Comments SODIUM (BEAKER) 137 meq/L 136-145 (test code = 381) POTASSIUM (BEAKER) 4.4 meq/L 3.5-5.1 (test code = 379) CHLORIDE (BEAKER) 98 meq/L 98-107 (test code = 382) CO2 (BEAKER) (test 25 meq/L 22-29 code = 355) BLOOD UREA NITROGEN 35 mg/dL 7-21 H (BEAKER) (test code = 354) CREATININE (BEAKER) 7.60 mg/dL 0.57-1.25 H (test code = 358) GLUCOSE RANDOM 120 mg/dL 70-105 H (BEAKER) (test code = 652) CALCIUM (BEAKER) 7.9 mg/dL 8.4-10.2 L (test code = 697) EGFR (BEAKER) (test 7 mL/min/1.73 ESTIMAT ED GFR IS code = 1092) sq m NOT ACCURATE CREATININE CLEARANCE IN PREDICTING GLOMERULAR FILTRATION RATE . ESTIMATED GFR I S NOT APPLICABLE FOR DIALYSIS PATIEN TS. Contract Engineer ID - [id number] 06:49:00 Test Item Value Reference Range Interpretation Comments MAGNESIUM (BEAKER) (test code = 2.0 mg/dL 1.6-2.6 627) Contract Engineer ID - EDASICBC W/PLT COUNT & AUTO [id number] 05:57:00 Test Item Value Reference Range Interpretation Comments WHITE BLOOD CELL COUNT (BEAKER) 9.7 K/ L 3.5-10.5 (test code = 775) RED BLOOD CELL COUNT (BEAKER) 3.29 M/ L 4.63-6.08 L (test code = 761) HEMOGLOBIN (BEAKER) (test code = 7.9 GM/DL 13.7-17.5 L 410) HEMATOCRIT (BEAKER) (test code = 27.7 % 40.1-51.0 L 411) MEAN CORPUSCULAR VOLUME (BEAKER) 84.2 fL 79.0-92.2 (test code = 753) MEAN CORPUSCULAR HEMOGLOBIN 24.0 pg 25.7-32.2 L (BEAKER) (test code = 751) MEAN CORPUSCULAR HEMOGLOBIN CONC 28.5 GM/DL 32.3-36.5 L (BEAKER) (test code = 752) RED CELL DISTRIBUTION WIDTH 15.7 % 11.6-14.4 H (BEAKER) (test code = 412) PLATELET COUNT (BEAKER) (test 350 K/CU MM 150-450 code = 756) MEAN PLATELET VOLUME (BEAKER) 9.9 fL 9.4-12.4 (test code = 754) NUCLEATED RED BLOOD CELLS 0 /100 WBC 0-0 (BEAKER) (test code = 413) NEUTROPHILS RELATIVE PERCENT 67 % (BEAKER) (test code = 429) LYMPHOCYTES RELATIVE PERCENT 14 % (BEAKER) (test code = 430) MONOCYTES RELATIVE PERCENT 12 % (BEAKER) (test code = 431) EOSINOPHILS RELATIVE PERCENT 6 % (BEAKER) (test code = 432) BASOPHILS RELATIVE PERCENT 1 % (BEAKER) (test code = 437) NEUTROPHILS ABSOLUTE COUNT 6.44 K/ L 1.78-5.38 H (BEAKER) (test code = 670) LYMPHOCYTES ABSOLUTE COUNT 1.33 K/ L 1.32-3.57 (BEAKER) (test code = 414) MONOCYTES ABSOLUTE COUNT (BEAKER) 1.18 K/ L 0.30-0.82 H (test code = 415) EOSINOPHILS ABSOLUTE COUNT 0.54 K/ L 0.04-0.54 (BEAKER) (test code = 416) BASOPHILS ABSOLUTE COUNT (BEAKER) 0.11 K/ L 0.01-0.08 H (test code = 417) IMMATURE GRANULOCYTES-RELATIVE 1 % 0-1 PERCENT (BEAKER) (test code = 2801) POCT-GLUCOSE [id number] 20:12:00 Test Item Value Reference Range Interpretation Comments POC-GLUCOSE METER 217 mg/dL 70-110 H : TESTED A T [facility] 6720 (BEAKER) (test code = [facility], 1538) 32066: Contract Engineer/Techni estefani ID = [id number] for NELLI SHOOK POCT-GLUCOSE [id number] 14:00:00 Test Item Value Reference Range Interpretation Comments POC-GLUCOSE METER 97 mg/dL 70-110 : TESTED A T [facility] 6720 (BEAKER) (test code = [facility], 1538) 35911: Contract Engineer/Techni estefani ID = [id number] for JOSELIN ESCALONA HEMODIALYSIS [id number] 11:30:00Justin Faith RN 12/17/2019 12:12 PMProcedure tolerated well. Vital signs stable.HD duration 3hours UF 2 L via left upper arm AV Fistula. Lab Results Component Value Date WBC 9.2 12/17/2019 HGB 8.1 (L) 12/17/2019 HCT 26.9 (L) 12/17/2019 MCV 83.5 12/17/2019 PLT 366 12/17/2019 Lab Results Component Value Date GLUCOSE 102 12/17/2019 CALCIUM 7.8 (L) 12/17/2019 NA 134 (L) 12/17/2019 K 4.7 12/17/2019 CO2 24 12/17/2019 CL 96 (L) 12/17/2019 BUN 43 (H) 12/17/2019 CREATININE 9.96 (H) 12/17/2019 No components found for: HEPSAG Vitals: 12/17/19 1145 BP: 150/71 Pulse: 75 Resp: 24 Temp: SpO2:[facility] METABOLIC [id number] 05:12:00 Test Item Value Reference Range Interpretation Comments SODIUM (BEAKER) 134 meq/L 136-145 L (test code = 381) POTASSIUM (BEAKER) 4.7 meq/L 3.5-5.1 (test code = 379) CHLORIDE (BEAKER) 96 meq/L 98-107 L (test code = 382) CO2 (BEAKER) (test 24 meq/L 22-29 code = 355) BLOOD UREA NITROGEN 43 mg/dL 7-21 H (BEAKER) (test code = 354) CREATININE (BEAKER) 9.96 mg/dL 0.57-1.25 H (test code = 358) GLUCOSE RANDOM 102 mg/dL 70-105 (BEAKER) (test code = 652) CALCIUM (BEAKER) 7.8 mg/dL 8.4-10.2 L (test code = 697) EGFR (BEAKER) (test 5 mL/min/1.73 ESTIMAT ED GFR IS code = 1092) sq m NOT ACCURATE CREATININE CLEARANCE IN PREDICTING GLOMERULAR FILTRATION RATE . ESTIMATED GFR I S NOT APPLICABLE FOR DIALYSIS PATIEN TS. Contract Engineer ID - JAQUELINE [id number] 05:09:00 Test Item Value Reference Range Interpretation Comments MAGNESIUM (BEAKER) (test code = 2.1 mg/dL 1.6-2.6 627) Contract Engineer ID - JAQUELINE MCBC W/PLT COUNT & AUTO [id number] 04:38:00 Test Item Value Reference Range Interpretation Comments WHITE BLOOD CELL COUNT (BEAKER) 9.2 K/ L 3.5-10.5 (test code = 775) RED BLOOD CELL COUNT (BEAKER) 3.22 M/ L 4.63-6.08 L (test code = 761) HEMOGLOBIN (BEAKER) (test code = 8.1 GM/DL 13.7-17.5 L 410) HEMATOCRIT (BEAKER) (test code = 26.9 % 40.1-51.0 L 411) MEAN CORPUSCULAR VOLUME (BEAKER) 83.5 fL 79.0-92.2 (test code = 753) MEAN CORPUSCULAR HEMOGLOBIN 25.2 pg 25.7-32.2 L (BEAKER) (test code = 751) MEAN CORPUSCULAR HEMOGLOBIN CONC 30.1 GM/DL 32.3-36.5 L (BEAKER) (test code = 752) RED CELL DISTRIBUTION WIDTH 15.5 % 11.6-14.4 H (BEAKER) (test code = 412) PLATELET COUNT (BEAKER) (test 366 K/CU MM 150-450 code = 756) MEAN PLATELET VOLUME (BEAKER) 9.4 fL 9.4-12.4 (test code = 754) NUCLEATED RED BLOOD CELLS 0 /100 WBC 0-0 (BEAKER) (test code = 413) NEUTROPHILS RELATIVE PERCENT 63 % (BEAKER) (test code = 429) LYMPHOCYTES RELATIVE PERCENT 16 % (BEAKER) (test code = 430) MONOCYTES RELATIVE PERCENT 11 % (BEAKER) (test code = 431) EOSINOPHILS RELATIVE PERCENT 9 % (BEAKER) (test code = 432) BASOPHILS RELATIVE PERCENT 1 % (BEAKER) (test code = 437) NEUTROPHILS ABSOLUTE COUNT 5.79 K/ L 1.78-5.38 H (BEAKER) (test code = 670) LYMPHOCYTES ABSOLUTE COUNT 1.48 K/ L 1.32-3.57 (BEAKER) (test code = 414) MONOCYTES ABSOLUTE COUNT (BEAKER) 0.96 K/ L 0.30-0.82 H (test code = 415) EOSINOPHILS ABSOLUTE COUNT 0.79 K/ L 0.04-0.54 H (BEAKER) (test code = 416) BASOPHILS ABSOLUTE COUNT (BEAKER) 0.09 K/ L 0.01-0.08 H (test code = 417) IMMATURE GRANULOCYTES-RELATIVE 0 % 0-1 PERCENT (BEAKER) (test code = 2801) POCT-GLUCOSE [id number] 21:09:00 Test Item Value Reference Range Interpretation Comments POC-GLUCOSE METER 156 mg/dL 70-110 H : TESTED A T [facility] 6720 (BEAKER) (test code = DASIA Garcia [facility], 1538) 30540: Contract Engineer/Techni estefani ID = [id number] for ROSIO DUFF POCT-GLUCOSE [id number] 16:53:00 Test Item Value Reference Range Interpretation Comments POC-GLUCOSE METER 135 mg/dL 70-110 H : TESTED A T [facility] 6720 (BEAKER) (test code [facility], = 1538) 57175: Contract Engineer/Techni estefani ID = [id number] for WILS ON, SHASTANIE POCT-GLUCOSE [id number] 11:36:00 Test Item Value Reference Range Interpretation Comments POC-GLUCOSE METER 115 mg/dL 70-110 H : TESTED A T [facility] 6720 (BEAKER) (test code [facility], = 1538) 24261: Contract Engineer/Techni estefani ID = [id number] for WILS ON, SHASTANIE SURGICALLY OBTAINED CULTURE + GRAM [id number] 08:39:00 Test Item Value Reference Range Interpretation Comments CULTURE (BEAKER) ENTEROBACTER A 3+ Enteroba cter (test code = 1095) CLOACAE COMPLEX cloaca e complex Amikacin (test code = S 1) Aztreonam (test code R = 32) Cefepime (test code = R 51) Cefoxitin (test code R = 68) Ceftazidime (test R code = 27) Ceftriaxone (test R code = 52) Gentamicin (test code S = 18) Levofloxacin (test R code = 22) Meropenem (test code S = 34) Nitrofurantoin (test S code = 23) Piperacillin + R Tazobactam (test code = 29) Tetracycline (test R code = 2) Tobramycin (test code S = 25) Trimethoprim + S Sulfamethoxazole (test code = 47) CULTURE (BEAKER) PSEUDOMONAS A 3+ Pseudomo ronda (test code = 1095) AERUGINOSA aeruginos a Amikacin (test code = Susceptible 0-16 S 1) , Resistant <0 or >16 Aztreonam (test code Susceptible 0-8 R = 32) , Resistant <0 or >8 Cefepime (test code = Susceptible 0-8 S 51) , Resistant <0 or >8 Ceftazidime (test Susceptible 0-8 S code = 27) , Resistant <0 or >8 Ciprofloxacin (test Susceptible S code = 7) 0-0.5 , Resistant <0 or >.5 Gentamicin (test code Susceptible 0-4 S = 18) , Resistant <0 or >4 Imipenem (test code = Susceptible 0-2 R 19) , Resistant <0 or >2 Levofloxacin (test Susceptible 0-1 R code = 22) , Resistant <0 or >1 Meropenem (test code Susceptible 0-2 R = 34) , Resistant <0 or >2 Piperacillin (test Susceptible 0-16 R code = 24) , Resistant <0 or >16 Piperacillin + Susceptible 0-16 R Tazobactam (test code , Resistant <0 = 29) or >16 Tobramycin (test code Susceptible 0-4 S = 25) , Resistant <0 or >4 CULTURE (BEAKER) A <1+ Ciarra (test code = 1095) parapsilo sis CULTURE (BEAKER) A 1+ Vancomyc in (test code = 1095) resistant Enterococcus faecium GRAM STAIN RESULT 1+ WBCs (BEAKER) (test code = 1123) GRAM STAIN RESULT 1+ gram negative (BEAKER) (test code = rods 895342) POCT-GLUCOSE [id number] 07:57:00 Test Item Value Reference Range Interpretation Comments POC-GLUCOSE METER 75 mg/dL 70-110 : TESTED A T [facility] 6720 (BEAKER) (test code = DASIA Garcia [facility], 1538) 10213: Contract Engineer/Techni estefani ID = [id number] for JOSELIN ESCALONA CBC W/PLT COUNT & AUTO [id number] 06:19:00 Test Item Value Reference Range Interpretation Comments WHITE BLOOD CELL COUNT (BEAKER) 8.9 K/ L 3.5-10.5 (test code = 775) RED BLOOD CELL COUNT (BEAKER) 3.22 M/ L 4.63-6.08 L (test code = 761) HEMOGLOBIN (BEAKER) (test code = 8.0 GM/DL 13.7-17.5 L 410) HEMATOCRIT (BEAKER) (test code = 27.3 % 40.1-51.0 L 411) MEAN CORPUSCULAR VOLUME (BEAKER) 84.8 fL 79.0-92.2 (test code = 753) MEAN CORPUSCULAR HEMOGLOBIN 24.8 pg 25.7-32.2 L (BEAKER) (test code = 751) MEAN CORPUSCULAR HEMOGLOBIN CONC 29.3 GM/DL 32.3-36.5 L (BEAKER) (test code = 752) RED CELL DISTRIBUTION WIDTH 15.6 % 11.6-14.4 H (BEAKER) (test code = 412) PLATELET COUNT (BEAKER) (test 349 K/CU MM 150-450 code = 756) MEAN PLATELET VOLUME (BEAKER) 9.1 fL 9.4-12.4 L (test code = 754) NUCLEATED RED BLOOD CELLS 0 /100 WBC 0-0 (BEAKER) (test code = 413) NEUTROPHILS RELATIVE PERCENT 67 % (BEAKER) (test code = 429) LYMPHOCYTES RELATIVE PERCENT 12 % (BEAKER) (test code = 430) MONOCYTES RELATIVE PERCENT 11 % (BEAKER) (test code = 431) EOSINOPHILS RELATIVE PERCENT 9 % (BEAKER) (test code = 432) BASOPHILS RELATIVE PERCENT 1 % (BEAKER) (test code = 437) NEUTROPHILS ABSOLUTE COUNT 5.96 K/ L 1.78-5.38 H (BEAKER) (test code = 670) LYMPHOCYTES ABSOLUTE COUNT 1.05 K/ L 1.32-3.57 L (BEAKER) (test code = 414) MONOCYTES ABSOLUTE COUNT (BEAKER) 0.93 K/ L 0.30-0.82 H (test code = 415) EOSINOPHILS ABSOLUTE COUNT 0.79 K/ L 0.04-0.54 H (BEAKER) (test code = 416) BASOPHILS ABSOLUTE COUNT (BEAKER) 0.09 K/ L 0.01-0.08 H (test code = 417) IMMATURE GRANULOCYTES-RELATIVE 0 % 0-1 PERCENT (BEAKER) (test code = 2801) BASIC METABOLIC [id number] 06:14:00 Test Item Value Reference Range Interpretation Comments SODIUM (BEAKER) 133 meq/L 136-145 L (test code = 381) POTASSIUM (BEAKER) 4.5 meq/L 3.5-5.1 (test code = 379) CHLORIDE (BEAKER) 97 meq/L 98-107 L (test code = 382) CO2 (BEAKER) (test 27 meq/L 22-29 code = 355) BLOOD UREA NITROGEN 35 mg/dL 7-21 H (BEAKER) (test code = 354) CREATININE (BEAKER) 8.87 mg/dL 0.57-1.25 H (test code = 358) GLUCOSE RANDOM 89 mg/dL 70-105 (BEAKER) (test code = 652) CALCIUM (BEAKER) 8.2 mg/dL 8.4-10.2 L (test code = 697) EGFR (BEAKER) (test 6 mL/min/1.73 ESTIMAT ED GFR IS code = 1092) sq m NOT ACCURATE CREATININE CLEARANCE IN PREDICTING GLOMERULAR FILTRATION RATE . ESTIMATED GFR I S NOT APPLICABLE FOR DIALYSIS PATIEN TS. Contract Engineer ID - PIAYA [id number] 06:13:00 Test Item Value Reference Range Interpretation Comments MAGNESIUM (BEAKER) (test code = 2.1 mg/dL 1.6-2.6 627) Contract Engineer ID - PIAYA LPOCT-GLUCOSE [id number] 20:21:00 Test Item Value Reference Range Interpretation Comments POC-GLUCOSE METER 188 mg/dL 70-110 H : TESTED A T [facility] 6720 (BEAKER) (test code = [facility], 153) [id number]: Contract Engineer/Techni estefani ID = [id number] for Ch andran, Nikki POCT-GLUCOSE [id number] 16:41:00 Test Item Value Reference Range Interpretation Comments POC-GLUCOSE METER 110 mg/dL 70-110 : TESTED A T [facility] 6720 (BEAKER) (test code [facility], = 1538) [id number]: Contract Engineer/Techni estefani ID = [id number] for WILS ON, SHASTANIE POCT-GLUCOSE [id number] 12:03:00 Test Item Value Reference Range Interpretation Comments POC-GLUCOSE METER 82 mg/dL 70-110 : TESTED A T [facility] 6720 (BEAKER) (test code = [facility], 1538) [id number]: Contract Engineer/Techni estefani ID = [id number] for WILS ON, SHASTANIE POCT-GLUCOSE [id number] 07:12:00 Test Item Value Reference Range Interpretation Comments POC-GLUCOSE METER 86 mg/dL 70-110 : TESTED A T [facility] 6720 (BEAKER) (test code = [facility], 1538) 90094: Contract Engineer/Techni estefani ID = [id number] for JOSELIN ESCALONA BASIC METABOLIC [id number] 05:40:00 Test Item Value Reference Range Interpretation Comments SODIUM (BEAKER) 136 meq/L 136-145 (test code = 381) POTASSIUM (BEAKER) 4.3 meq/L 3.5-5.1 (test code = 379) CHLORIDE (BEAKER) 98 meq/L 98-107 (test code = 382) CO2 (BEAKER) (test 27 meq/L 22-29 code = 355) BLOOD UREA NITROGEN 27 mg/dL 7-21 H (BEAKER) (test code = 354) CREATININE (BEAKER) 6.51 mg/dL 0.57-1.25 H (test code = 358) GLUCOSE RANDOM 95 mg/dL 70-105 (BEAKER) (test code = 652) CALCIUM (BEAKER) 7.8 mg/dL 8.4-10.2 L (test code = 697) EGFR (BEAKER) (test 9 mL/min/1.73 ESTIMAT ED GFR IS code = 1092) sq m NOT ACCURATE CREATININE CLEARANCE IN PREDICTING GLOMERULAR FILTRATION RATE . ESTIMATED GFR I S NOT APPLICABLE FOR DIALYSIS PATIEN TS. [id number] 05:38:00 Test Item Value Reference Range Interpretation Comments MAGNESIUM (BEAKER) (test code = 2.0 mg/dL 1.6-2.6 627) CBC W/PLT COUNT & AUTO [id number] 05:07:00 Test Item Value Reference Range Interpretation Comments WHITE BLOOD CELL COUNT (BEAKER) 9.1 K/ L 3.5-10.5 (test code = 775) RED BLOOD CELL COUNT (BEAKER) 3.23 M/ L 4.63-6.08 L (test code = 761) HEMOGLOBIN (BEAKER) (test code = 8.0 GM/DL 13.7-17.5 L 410) HEMATOCRIT (BEAKER) (test code = 27.3 % 40.1-51.0 L 411) MEAN CORPUSCULAR VOLUME (BEAKER) 84.5 fL 79.0-92.2 (test code = 753) MEAN CORPUSCULAR HEMOGLOBIN 24.8 pg 25.7-32.2 L (BEAKER) (test code = 751) MEAN CORPUSCULAR HEMOGLOBIN CONC 29.3 GM/DL 32.3-36.5 L (BEAKER) (test code = 752) RED CELL DISTRIBUTION WIDTH 15.3 % 11.6-14.4 H (BEAKER) (test code = 412) PLATELET COUNT (BEAKER) (test 335 K/CU MM 150-450 code = 756) MEAN PLATELET VOLUME (BEAKER) 9.4 fL 9.4-12.4 (test code = 754) NUCLEATED RED BLOOD CELLS 0 /100 WBC 0-0 (BEAKER) (test code = 413) NEUTROPHILS RELATIVE PERCENT 66 % (BEAKER) (test code = 429) LYMPHOCYTES RELATIVE PERCENT 13 % (BEAKER) (test code = 430) MONOCYTES RELATIVE PERCENT 11 % (BEAKER) (test code = 431) EOSINOPHILS RELATIVE PERCENT 10 % (BEAKER) (test code = 432) BASOPHILS RELATIVE PERCENT 1 % (BEAKER) (test code = 437) NEUTROPHILS ABSOLUTE COUNT 6.01 K/ L 1.78-5.38 H (BEAKER) (test code = 670) LYMPHOCYTES ABSOLUTE COUNT 1.14 K/ L 1.32-3.57 L (BEAKER) (test code = 414) MONOCYTES ABSOLUTE COUNT (BEAKER) 0.98 K/ L 0.30-0.82 H (test code = 415) EOSINOPHILS ABSOLUTE COUNT 0.90 K/ L 0.04-0.54 H (BEAKER) (test code = 416) BASOPHILS ABSOLUTE COUNT (BEAKER) 0.07 K/ L 0.01-0.08 (test code = 417) IMMATURE GRANULOCYTES-RELATIVE 0 % 0-1 PERCENT (BEAKER) (test code = 2801) POCT-GLUCOSE [id number] 20:33:00 Test Item Value Reference Range Interpretation Comments POC-GLUCOSE METER 218 mg/dL 70-110 H : TESTED A T [facility] 6720 (BEAKER) (test code = [facility], 1538) [id number]: Contract Engineer/Techni estefani ID = [id number] for PHIL MURRELL TTRohit POCT-GLUCOSE [id number] 17:47:00 Test Item Value Reference Range Interpretation Comments POC-GLUCOSE METER 122 mg/dL 70-110 H : TESTED A T [facility] 6720 (BEAKER) (test code [facility], = 1538) 26536: Contract Engineer/Techni estefani ID = [id number] for WILS ONJOSELIN HEMODIALYSIS [id number] 16:37:00Cornelius Gurrola RN 12/14/2019 4:37 PMLab Results Component Value Date WBC 8.7 12/14/2019 HGB 8.0 (L) 12/14/2019 HCT 27.1 (L) 12/14/2019 MCV 83.9 12/14/2019 PLT 325 12/14/2019 Lab Results Component Value Date GLUCOSE 100 12/14/2019 CALCIUM 7.6 (L) 12/14/2019 NA 137 12/14/2019 K 4.7 12/14/2019 CO2 25 12/14/2019 CL 99 12/14/2019 BUN 39 (H) 12/14/2019 CREATININE 9.24 (H) 12/14/2019Lab Results Component Value Date HEPBSAG Nonreactive 11/21/2019 HD X 3 hours completed via LUE fistula. Net UF -2L. VSS. Patient tolerated procedure well. Cornelius Gurrola [facility]NPom[facility] CenterPOCT[facility] [id number] 11:53:00 Test Item Value Reference Range Interpretation Comments POC-GLUCOSE METER 93 mg/dL 70-110 : TESTED A T [facility] 6720 (BEAKER) (test code = [facility], 1538) [id number]: Contract Engineer/Techni estefani ID = [id number] for WILS ON, JOSEE POCT-GLUCOSE [id number] 08:26:00 Test Item Value Reference Range Interpretation Comments POC-GLUCOSE METER 93 mg/dL 70-110 : TESTED A T [facility] 6720 (BEAKER) (test code = [facility], 1538) 87232: Contract Engineer/Techni estefani ID = [id number] for WILS ON, JOSEE BASIC METABOLIC [id number] 04:43:00 Test Item Value Reference Range Interpretation Comments SODIUM (BEAKER) 137 meq/L 136-145 (test code = 381) POTASSIUM (BEAKER) 4.7 meq/L 3.5-5.1 (test code = 379) CHLORIDE (BEAKER) 99 meq/L 98-107 (test code = 382) CO2 (BEAKER) (test 25 meq/L 22-29 code = 355) BLOOD UREA NITROGEN 39 mg/dL 7-21 H (BEAKER) (test code = 354) CREATININE (BEAKER) 9.24 mg/dL 0.57-1.25 H (test code = 358) GLUCOSE RANDOM 100 mg/dL 70-105 (BEAKER) (test code = 652) CALCIUM (BEAKER) 7.6 mg/dL 8.4-10.2 L (test code = 697) EGFR (BEAKER) (test 6 mL/min/1.73 ESTIMAT ED GFR IS code = 1092) sq m NOT ACCURATE CREATININE CLEARANCE IN PREDICTING GLOMERULAR FILTRATION RATE . ESTIMATED GFR I S NOT APPLICABLE FOR DIALYSIS PATIEN TS. Contract Engineer ID - [id number] 04:33:00 Test Item Value Reference Range Interpretation Comments MAGNESIUM (BEAKER) (test code = 2.1 mg/dL 1.6-2.6 627) Contract Engineer ID - EDASICBC W/PLT COUNT & AUTO [id number] 04:11:00 Test Item Value Reference Range Interpretation Comments WHITE BLOOD CELL COUNT (BEAKER) 8.7 K/ L 3.5-10.5 (test code = 775) RED BLOOD CELL COUNT (BEAKER) 3.23 M/ L 4.63-6.08 L (test code = 761) HEMOGLOBIN (BEAKER) (test code = 8.0 GM/DL 13.7-17.5 L 410) HEMATOCRIT (BEAKER) (test code = 27.1 % 40.1-51.0 L 411) MEAN CORPUSCULAR VOLUME (BEAKER) 83.9 fL 79.0-92.2 (test code = 753) MEAN CORPUSCULAR HEMOGLOBIN 24.8 pg 25.7-32.2 L (BEAKER) (test code = 751) MEAN CORPUSCULAR HEMOGLOBIN CONC 29.5 GM/DL 32.3-36.5 L (BEAKER) (test code = 752) RED CELL DISTRIBUTION WIDTH 15.3 % 11.6-14.4 H (BEAKER) (test code = 412) PLATELET COUNT (BEAKER) (test 325 K/CU MM 150-450 code = 756) MEAN PLATELET VOLUME (BEAKER) 9.2 fL 9.4-12.4 L (test code = 754) NUCLEATED RED BLOOD CELLS 0 /100 WBC 0-0 (BEAKER) (test code = 413) NEUTROPHILS RELATIVE PERCENT 66 % (BEAKER) (test code = 429) LYMPHOCYTES RELATIVE PERCENT 13 % (BEAKER) (test code = 430) MONOCYTES RELATIVE PERCENT 9 % (BEAKER) (test code = 431) EOSINOPHILS RELATIVE PERCENT 11 % (BEAKER) (test code = 432) BASOPHILS RELATIVE PERCENT 1 % (BEAKER) (test code = 437) NEUTROPHILS ABSOLUTE COUNT 5.74 K/ L 1.78-5.38 H (BEAKER) (test code = 670) LYMPHOCYTES ABSOLUTE COUNT 1.15 K/ L 1.32-3.57 L (BEAKER) (test code = 414) MONOCYTES ABSOLUTE COUNT (BEAKER) 0.75 K/ L 0.30-0.82 (test code = 415) EOSINOPHILS ABSOLUTE COUNT 0.94 K/ L 0.04-0.54 H (BEAKER) (test code = 416) BASOPHILS ABSOLUTE COUNT (BEAKER) 0.06 K/ L 0.01-0.08 (test code = 417) IMMATURE GRANULOCYTES-RELATIVE 0 % 0-1 PERCENT (BEAKER) (test code = 2801) POCT-GLUCOSE [id number] 21:01:00 Test Item Value Reference Range Interpretation Comments POC-GLUCOSE METER 159 mg/dL 70-110 H : TESTED A T [facility] 6720 (BEAKER) (test code = [facility], 153) [id number]: Contract Engineer/Techni estefani ID = [id number] for Alexia Vivas POCT-GLUCOSE [id number] 17:01:00 Test Item Value Reference Range Interpretation Comments POC-GLUCOSE METER 149 mg/dL 70-110 H : TESTED A T [facility] 6720 (BEAKER) (test code = [facility], 1538) 58942: Contract Engineer/Techni estefani ID = [id number] for IAIN EASTON POCT-GLUCOSE [id number] 12:36:00 Test Item Value Reference Range Interpretation Comments POC-GLUCOSE METER 127 mg/dL 70-110 H : TESTED A T [facility] 6720 (BEAKER) (test code = [facility], 1538) 33349: Contract Engineer/Techni estefani ID = [id number] for CARMELA ANGEL SAINZ Arterial doppler leg, [id number] 11:32:57Ejection FractionSBEAR [facility] ECHO HEARTLAB MKCKESSON CPACSRight Impression1. The common femoral, profunda femoral, superficial femoral and poplitealarteries are patent with diffuse plaque and triphasic/biphasic Dopplerwaveforms.2. 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 There is <50% stenosis in the mid anterior tibial artery with a peakvelocity of 216 cm/sec (VR=1.63) and biphasic Doppler waveforms. Conclusions Summary Arterial duplex analysis was performed on the right lower extremity. Adequate Doppler waveforms were obtained. The right arterial system had diffuse plaque with triphasic and biphasic Doppler waveforms in the femoral and popliteal arteries. There was <50% stenosis in the mid anterior tibial artery with biphasic Doppler waveforms. 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 Signature Velocities are measured in cm/s ; Diameters are measured in cm LE Duplex Measurements Right Left + + + + + + + + + + !Location ! !PSV !EDV !Waveform ! !PSV !EDV !Waveform ! + + + + + + +----- + + + !Mid Common Femoral ! !134 ! !Triphasic ! + + + + + + !Prox PFA ! !114 ! !Triphasic ! + + + + + + !Prox SFA ! !127 ! !Biphasic! + + + + + + !Mid SFA ! !136 ! !Triphasic ! + + + + + + !Dist SFA ! !116 ! !Biphasic ! + + + + + + !Prox Popliteal ! !141 ! !Triphasic ! + + + + + + !Dist Popliteal ! !106 ! !Biphasic ! + + +--- + + + !Prox GUN WELDER ! !0 ! !Absent ! + + + + + + !Mid GUN WELDER ! !0 ! !Absent ! + ---------+ + + + + !Dist GUN WELDER ! !0 ! !Absent ! + + + + + + !Prox MARTY ! !132 ! !Biphasic ! + + + + + + !Mid MARTY ! !216 ! !Biphasic ! + + + + + + !Dist MARTY ! !139 ! !Biphasic ! + + + + + + !Prox Peroneal ! !0 ! !Absent ! + + +- + + + !Mid Peroneal ! !0 ! !Absent ! + + + + + + !Dist Peroneal ! !0 ! !Absent ! + + + + + + Interface, External Ris In - 12/13/2019 11:33 AM CDTPV LAB - Lower Extremity Arterial Duplex Demographics Patient Name GRIJALVADAYTON Date of Study 12/13/2019 Age 59 Visit Number [id number] Gender Male Accession Number [id number] Date of 1960 Referring Kassie Ramachandran, Room Number 954 Physician WORD PROCESSOR OPERATOR Supervisor Glycerin Ephraim German Interpreting Celi Morgan S Physician ProcedureType of Study: Extremities Arteries: Lower Extremities Arterial Duplex, ARTERIAL DOPPLER LEG, RIGHT. Indications for Study:PAD.Patient Status:TODAY.Study Location:Vascular Lab.Technical Quality:Adequate visualization.Risk FactorsHistory of Disease+ +----+ --+!Diagnosis !Date!Comments !+ +----+ +!History/Risk ! !Recent surgery: S/P Debridement/I&D, wound right foot !!Factors: ! !12/11/2019, Right leg percutaneous transluminal !! ! !angioplasty 11/15/2019, Bilateral transmetatarsal !! ! !amputations, DM, Known PVD, Gangrene !+ +----+ +ImpressionsRight Impression1. The common femoral, profunda femoral, superficial femoral and poplitealarteries are patent with diffuse plaque and triphasic/biphasic Dopplerwaveforms.2.The posterior tibial and peroneal arteries are occluded.3. There is <50% stenosis in the mid anterior tibial artery with a peakvelocity of 216 cm/sec (VR=1.63) and biphasic Doppler waveforms. Conclusions Summary Arterial duplex analysis was performed on the right lower extremity. Adequate Dopplerwaveforms were obtained. The right arterial system had diffuse plaque with triphasic and biphasic Doppler waveforms in the femoral and popliteal arteries. There was <50% stenosis in the mid anteriortibial artery with biphasic Doppler waveforms. 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 Signature Velocities are measured in cm/s ; Diameters are measured in cmLEDuplex Measurements Right Left + + + + + + + + + + !Location ! !PSV !EDV !Waveform ! !PSV !EDV !Waveform ! + + + + + + + + + + !Mid Common Femoral ! !134 ! !Triphasic ! + + + + + + !Prox PFA ! !114 ! !Triphasic ! + + + + + + !Prox SFA ! !127 ! !Biphasic ! + + + + + + !Mid SFA ! !136 ! !Triphasic ! + + + + + + !Dist SFA ! !116 ! !Biphasic ! + + + + + + !Prox Popliteal ! !141 ! !Triphasic ! + + + + + + !Dist Popliteal ! !106 ! !Biphasic ! + + + + + + !Prox GUN WELDER !!0 ! !Absent ! + + + + + + !Mid GUN WELDER ! !0 ! !Absent ! + + + -----+ + + !Dist GUN WELDER ! !0 ! !Absent ! + + + + + + !Prox MARTY ! !132 ! !Biphasic ! + + + + + + !Mid MARTY ! !216 ! !Biphasic ! + + + + + + !Dist MARTY ! !139 ! !Biphasic ! + + + + + + !Prox Peroneal ! !0 ! !Absent ! + + + + + + !Mid Peroneal! !0 ! !Absent ! + + + + + + !Dist Peroneal ! !0 ! !Absent ! + + + -------+ + +[facility] [id number] 08:18:00 Test Item Value Reference Range Interpretation Comments POC-GLUCOSE METER 75 mg/dL 70-110 : TESTED Vikas Velásquez [facility] 6720 (NOE) (test code = D[facility] [place], 1538) [id number]: Contract Engineer/Techni estefani ID = [id number] for IAIN DEXTER HEMOGLOBIN [id number] 08:08:00 Test Item Value Reference Range Interpretation Comments HEMOGLOBIN A1C (BEAKER) (test code = 5.9 % 4.3-6.1 368) BASIC METABOLIC [id number] 06:38:00 Test Item Value Reference Range Interpretation Comments SODIUM (BEAKER) 135 meq/L 136-145 L (test code = 381) POTASSIUM (BEAKER) 4.8 meq/L 3.5-5.1 (test code = 379) CHLORIDE (BEAKER) 98 meq/L 98-107 (test code = 382) CO2 (BEAKER) (test 28 meq/L 22-29 code = 355) BLOOD UREA NITROGEN 33 mg/dL 7-21 H (BEAKER) (test code = 354) CREATININE (BEAKER) 7.65 mg/dL 0.57-1.25 H (test code = 358) GLUCOSE RANDOM 75 mg/dL 70-105 (BEAKER) (test code = 652) CALCIUM (BEAKER) 7.6 mg/dL 8.4-10.2 L (test code = 697) EGFR (BEAKER) (test 7 mL/min/1.73 ESTIMAT ED GFR IS code = 1092) sq m NOT ACCURATE CREATININE CLEARANCE IN PREDICTING GLOMERULAR FILTRATION RATE . ESTIMATED GFR I S NOT APPLICABLE FOR DIALYSIS PATIEN TS. Contract Engineer ID - JAQUELINE [id number] 06:32:00 Test Item Value Reference Range Interpretation Comments MAGNESIUM (BEAKER) (test code = 2.0 mg/dL 1.6-2.6 627) Contract Engineer ID - JAQUELINE [facility] W/PLT COUNT & AUTO [id number] 06:04:00 Test Item Value Reference Range Interpretation Comments WHITE BLOOD CELL COUNT (BEAKER) 7.8 K/ L 3.5-10.5 (test code = 775) RED BLOOD CELL COUNT (BEAKER) 3.21 M/ L 4.63-6.08 L (test code = 761) HEMOGLOBIN (BEAKER) (test code = 8.0 GM/DL 13.7-17.5 L 410) HEMATOCRIT (BEAKER) (test code = 27.4 % 40.1-51.0 L 411) MEAN CORPUSCULAR VOLUME (BEAKER) 85.4 fL 79.0-92.2 (test code = 753) MEAN CORPUSCULAR HEMOGLOBIN 24.9 pg 25.7-32.2 L (BEAKER) (test code = 751) MEAN CORPUSCULAR HEMOGLOBIN CONC 29.2 GM/DL 32.3-36.5 L (BEAKER) (test code = 752) RED CELL DISTRIBUTION WIDTH 15.4 % 11.6-14.4 H (BEAKER) (test code = 412) PLATELET COUNT (BEAKER) (test 319 K/CU MM 150-450 code = 756) MEAN PLATELET VOLUME (BEAKER) 9.3 fL 9.4-12.4 L (test code = 754) NUCLEATED RED BLOOD CELLS 0 /100 WBC 0-0 (BEAKER) (test code = 413) NEUTROPHILS RELATIVE PERCENT 64 % (BEAKER) (test code = 429) LYMPHOCYTES RELATIVE PERCENT 15 % (BEAKER) (test code = 430) MONOCYTES RELATIVE PERCENT 9 % (BEAKER) (test code = 431) EOSINOPHILS RELATIVE PERCENT 10 % (BEAKER) (test code = 432) BASOPHILS RELATIVE PERCENT 1 % (BEAKER) (test code = 437) NEUTROPHILS ABSOLUTE COUNT 4.95 K/ L 1.78-5.38 (BEAKER) (test code = 670) LYMPHOCYTES ABSOLUTE COUNT 1.20 K/ L 1.32-3.57 L (BEAKER) (test code = 414) MONOCYTES ABSOLUTE COUNT (BEAKER) 0.70 K/ L 0.30-0.82 (test code = 415) EOSINOPHILS ABSOLUTE COUNT 0.81 K/ L 0.04-0.54 H (BEAKER) (test code = 416) BASOPHILS ABSOLUTE COUNT (BEAKER) 0.08 K/ L 0.01-0.08 (test code = 417) IMMATURE GRANULOCYTES-RELATIVE 0 % 0-1 PERCENT (BEAKER) (test code = 2801) SARS-COV2/RT-PCR ([facility])2019-12-13 05:48:00 Test Item Value Reference Range Interpretation Comments SARS-COV2/RT-PCR (test Negative Not Detected, Negative, code = 9140162) See external report for linked test SARS-COV-2 PERFORMING LAB [facility] (test code = 5717961) Negative result for this test determines that SARS-CoV-2 RNA was not present in the specimen above the Limit of Detection (LOD). However, Negative results do not preclude SARS-CoV-2 infection and should not be used as the sole basis for treatment or patient management decisions. Negative results mustbe combined with clinical observations, patient history, and epidemiological information. A false negative result may occur if a specimen is improperly collected, transported or handled. A false negative result should be considered if patient's recent exposures or clinical presentation indicate that COVID-19 (SARS-CoV-2) is likely and diagnostic tests for other causes of illness are negative. Re-testing should be considered in cases of suspected false negatives.The limit of detection for this assay is 800 copies/mL.This SARS CoV-2 test is a real-time RT-PCR test intended for the qualitative detection of nucleic acid from SARS-CoV-2 in a nasopharyngeal swab specimen collected from individuals susp ected of COVID-19 by their healthcare provider.This test has not been Food and Drug Administration (FDA) cleared or approved. This is a modified version of an approved Emergency Use Authorization (EUA) and is in the process of review by the FDA. Once authorized by the FDA, the issued EUA will be effective until the declaration that circumstances exist justifying the authorization of the emergency use of in vitro diagnostic tests for detection and/or diagnosis of COVID-19 is terminated under Section 564(b)(2) of the Act or the EUA is revoked under Section 564(g) of the Act.Fact Sheet for Healthcare Providers:https://www.wufoo.Veebow/sites/default/files/product/documents/Fact_Shee g_BR_Gntazkhtm_Medi_PMUM-LxW-5.pdfFact Sheet for Healthcare Patients:https://www.wufoo.Veebow/sites/default/files/product/ documents/Wsqp_Blelx_Iqwtpxgz_Jthd_XQET-RaN-9.pdfPerforming Laboratory:[facility], [place] [address]HRQD-TTEMDPT METER 2019-12-12 20:52:00 Test Item Value Reference Range Interpretation Comments POC-GLUCOSE METER 123 mg/dL 70-110 H : TESTED Vikas T [facility] 6720 (NOE) (test code = DASIA Garcia [facility], 1538) [id number]: Contract Engineer/Techni estefani ID = [id number] for Mo min, Alexia POCT-GLUCOSE [id number] 16:14:00 Test Item Value Reference Range Interpretation Comments POC-GLUCOSE METER 175 mg/dL 70-110 H : TESTED A T [facility] 6720 (BEAKER) (test code = DASIA Garcia [place], 1538) 99651: Contract Engineer/Techni estefani ID = [id number] for IAIN EASTON POCT-GLUCOSE [id number] 13:41:00 Test Item Value Reference Range Interpretation Comments POC-GLUCOSE METER 145 mg/dL 70-110 H : TESTED A T [facility] 6720 (BEAKER) (test code = DASIA Garcia [facility], 1538) 84988: Contract Engineer/Techni estefani ID = [id number] for BLADIMIR MELISSA HEMODIALYSIS [id number] 12:01:00Param Mera RN 12/12/2019 12:02 PMLab Results Component Value Date GLUCOSE 136 (H) 12/11/2019 CALCIUM 7.8 (L) 12/11/2019 NA 138 12/11/2019 K 4.9 12/11/2019 CO2 27 12/11/2019 CL 99 12/11/2019 BUN 41 (H) 12/11/2019 CREATININE 8.26 (H) 12/11/2019 Lab Results Component Value Date WBC 9.110 HGB 8.4 (L) 12/11/2019 HCT 27.9 (L) 12/11/2019 MCV 84.8 12/11/2019 PLT 326 12/11/2019 HBSAg - Nonreactive 11/21/2019 - S/P Hemodialysis x 3 hours. - Removed 2 L as tolerated. - Treatment tolerated well. Asymptomatic through out procedure - AVF (+) B/T. No S/Sx of infection noted. - Consent verified prior to initiation of treatment. - Report given to SUNITA Donovan RNCHI [facility] HospitalVANCOMYCIN LEVEL, [id number] 05:00:00 Test Item Value Reference Range Interpretation Comments VANCOMYCIN RANDOM (BEAKER) (test 17.3 ug/mL code = 523) Reference Range: No NormalsOperator ID - JAQUELINE MSPIN/CONCENTRATION CHARGE 2019-12-12 04:16:00 Test Item Value Reference Range Interpretation Comments CONCENTRATION CHARGED (BEAKER) (test Done code = 2657) POCT-GLUCOSE [id number] 20:36:00 Test Item Value Reference Range Interpretation Comments POC-GLUCOSE METER 80 mg/dL 70-110 : TESTED A T [facility] 6720 (BEAKER) (test code = [facility], 1538) 96031: Contract Engineer/Techni estefani ID = [id number] for ELIZABETH DUENAS POCT-GLUCOSE [id number] 16:43:00 Test Item Value Reference Range Interpretation Comments POC-GLUCOSE METER 88 mg/dL 70-110 : TESTED A T [facility] 6720 (BEAKER) (test code = [facility], 1538) 62282: Contract Engineer/Techni estefani ID = [id number] for KRYSTAL KNOX POCT-GLUCOSE [id number] 14:06:00 Test Item Value Reference Range Interpretation Comments POC-GLUCOSE METER 78 mg/dL 70-110 : TESTED A T [facility] 6720 (BEAKER) (test code = [facility], 1538) 38319: Contract Engineer/Techni estefani ID = [id number] for KRYSTAL KNOX POCT-GLUCOSE [id number] 11:19:00 Test Item Value Reference Range Interpretation Comments POC-GLUCOSE METER 93 mg/dL 70-110 : TESTED A T [facility] 6720 (BEAKER) (test code = [facility], 1538) 07176: Contract Engineer/Techni estefani ID = [id number] for COLEEN LEWISROSE BASIC METABOLIC [id number] 04:38:00 Test Item Value Reference Range Interpretation Comments SODIUM (BEAKER) 138 meq/L 136-145 (test code = 381) POTASSIUM (BEAKER) 4.9 meq/L 3.5-5.1 (test code = 379) CHLORIDE (BEAKER) 99 meq/L 98-107 (test code = 382) CO2 (BEAKER) (test 27 meq/L 22-29 code = 355) BLOOD UREA NITROGEN 41 mg/dL 7-21 H (BEAKER) (test code = 354) CREATININE (BEAKER) 8.26 mg/dL 0.57-1.25 H (test code = 358) GLUCOSE RANDOM 136 mg/dL 70-105 H (BEAKER) (test code = 652) CALCIUM (BEAKER) 7.8 mg/dL 8.4-10.2 L (test code = 697) EGFR (BEAKER) (test 7 mL/min/1.73 ESTIMAT ED GFR IS code = 1092) sq m NOT ACCURATE CREATININE CLEARANCE IN PREDICTING GLOMERULAR FILTRATION RATE . ESTIMATED GFR I S NOT APPLICABLE FOR DIALYSIS PATIEN TS. Contract Engineer ID - EDASICBC W/PLT COUNT & AUTO [id number] 04:14:00 Test Item Value Reference Range Interpretation Comments WHITE BLOOD CELL COUNT (BEAKER) 9.1 K/ L 3.5-10.5 (test code = 775) RED BLOOD CELL COUNT (BEAKER) 3.29 M/ L 4.63-6.08 L (test code = 761) HEMOGLOBIN (BEAKER) (test code = 8.4 GM/DL 13.7-17.5 L 410) HEMATOCRIT (BEAKER) (test code = 27.9 % 40.1-51.0 L 411) MEAN CORPUSCULAR VOLUME (BEAKER) 84.8 fL 79.0-92.2 (test code = 753) MEAN CORPUSCULAR HEMOGLOBIN 25.5 pg 25.7-32.2 L (BEAKER) (test code = 751) MEAN CORPUSCULAR HEMOGLOBIN CONC 30.1 GM/DL 32.3-36.5 L (BEAKER) (test code = 752) RED CELL DISTRIBUTION WIDTH 15.6 % 11.6-14.4 H (BEAKER) (test code = 412) PLATELET COUNT (BEAKER) (test 326 K/CU MM 150-450 code = 756) MEAN PLATELET VOLUME (BEAKER) 9.2 fL 9.4-12.4 L (test code = 754) NUCLEATED RED BLOOD CELLS 0 /100 WBC 0-0 (BEAKER) (test code = 413) NEUTROPHILS RELATIVE PERCENT 71 % (BEAKER) (test code = 429) LYMPHOCYTES RELATIVE PERCENT 10 % (BEAKER) (test code = 430) MONOCYTES RELATIVE PERCENT 9 % (BEAKER) (test code = 431) EOSINOPHILS RELATIVE PERCENT 9 % (BEAKER) (test code = 432) BASOPHILS RELATIVE PERCENT 1 % (BEAKER) (test code = 437) NEUTROPHILS ABSOLUTE COUNT 6.45 K/ L 1.78-5.38 H (BEAKER) (test code = 670) LYMPHOCYTES ABSOLUTE COUNT 0.94 K/ L 1.32-3.57 L (BEAKER) (test code = 414) MONOCYTES ABSOLUTE COUNT (BEAKER) 0.79 K/ L 0.30-0.82 (test code = 415) EOSINOPHILS ABSOLUTE COUNT 0.86 K/ L 0.04-0.54 H (AKER) (test code = 416) BASOPHILS ABSOLUTE COUNT ([facility]) 0.07 K/ L 0.01-0.08 (test code = 417) IMMATURE GRANULOCYTES-RELATIVE 0 % 0-1 PERCENT ([facility]) (test code = 2801) BLOOD [id number] 02:00:00 Test Item Value Reference Range Interpretation Comments CULTURE ([facility]) (test No growth in 5 days code = 1095) POCT-GLUCOSE [id number] 20:48:00 Test Item Value Reference Range Interpretation Comments POC-GLUCOSE METER 192 mg/dL 70-110 H : Notified RN/MD: ([facility]) (test code = TESTED AT [place] [id number]) [facility], [id number]: Contract Engineer/Techni estefani ID = [id number] for KENROY LOPEZY POCT-GLUCOSE [id number] 17:27:00 Test Item Value Reference Range Interpretation Comments POC-GLUCOSE METER 96 mg/dL 70-110 : [facility] ([facility]) (test code = [facility], 153) [address]: Contract Engineer/Techni estefani ID = [id number] for WILS ON, SHASTANIE POCT-GLUCOSE [id number] 16:31:00 Test Item Value Reference Range Interpretation Comments POC-GLUCOSE METER 91 mg/dL 70-110 : [facility]ED [facility] ([facility]) (test code = [facility], 153) [id number]: Contract Engineer/Techni estefani ID = [id number] for JUAN Z, EVONNE VIAL POCT-GLUCOSE [id number] 11:42:00 Test Item Value Reference Range Interpretation Comments POC-GLUCOSE METER 91 mg/dL 70-110 : TESTED [facility] ([facility]) (test code = [facility], 153) [id number]: Contract Engineer/Techni estefani ID = [id number] for WILS ON, SHASTANIE POCT-GLUCOSE [id number] 08:18:00 Test Item Value Reference Range Interpretation Comments POC-GLUCOSE METER 95 mg/dL 70-110 : [facility] (BEAKER) (test code = [facility], [facility]) 77839: Contract Engineer/Techni estefani ID = [id number] for JOSELIN ESCALONA POCT-GLUCOSE [id number] 21:34:00 Test Item Value Reference Range Interpretation Comments POC-GLUCOSE METER 135 mg/dL 70-110 H : TESTED A T [facility] 6720 (BEAKER) (test code = [facility], [facility]) 14941: Contract Engineer/Techni estefani ID = [id number] for MURRELL, PHIL TTE POCT-GLUCOSE [id number] 16:56:00 Test Item Value Reference Range Interpretation Comments POC-GLUCOSE METER 140 mg/dL 70-110 H : TESTED A T [facility] 6720 (BEAKER) (test code = [facility], [facility]) 94140: Contract Engineer/Techni estefani ID = [id number] for AGUSTÍN GUTIERREZ, IAIN POCT-GLUCOSE [id number] 11:38:00 Test Item Value Reference Range Interpretation Comments POC-GLUCOSE METER 126 mg/dL 70-110 H : TESTED A T [facility] 6720 (BEAKER) (test code = [facility], [facility]) 28004: Contract Engineer/Techni estefani ID = [id number] for AGUSTÍN GUTIERREZ, IAIN POCT-GLUCOSE [id number] 07:31:00 Test Item Value Reference Range Interpretation Comments POC-GLUCOSE METER 63 mg/dL 70-110 L : TESTED A T [facility] 6720 (BEAKER) (test code = [facility], [facility]) 14803: Contract Engineer/Techni estefani ID = [id number] for BREA AKERS, IAIN POCT-GLUCOSE [id number] 21:32:00 Test Item Value Reference Range Interpretation Comments POC-GLUCOSE METER 144 mg/dL 70-110 H : TESTED A T [facility] 6720 (BEAKER) (test code = [facility], [facility]) 15414: Contract Engineer/Techni estefani ID = [id number] for MURRELL, PHIL TTE POCT-GLUCOSE [id number] 17:06:00 Test Item Value Reference Range Interpretation Comments POC-GLUCOSE METER 95 mg/dL 70-110 : TESTED A T [facility] 6720 (BEAKER) (test code = DASIA Garcia [facility], 1538) 69550: Contract Engineer/Techni estefani ID = [id number] for IAIN DEXTER POCT-GLUCOSE [id number] 12:40:00 Test Item Value Reference Range Interpretation Comments POC-GLUCOSE METER 153 mg/dL 70-110 H : TESTED A T [facility] 6720 (BEAKER) (test code = [facility] Jose [facility], 1538) 27748: Contract Engineer/Techni estefani ID = [id number] for IAIN EASTON POCT-GLUCOSE [id number] 07:26:00 Test Item Value Reference Range Interpretation Comments POC-GLUCOSE METER 103 mg/dL 70-110 : TESTED A T [facility] 6720 (BEAKER) ([facility] = [facility], 1538) 18332: Contract Engineer/Techni estefani ID = [id number] for IAIN EASTON BASIC METABOLIC [id number] 05:34:00 Test Item Value Reference Range Interpretation Comments SODIUM (BEAKER) 136 meq/L 136-145 (test code = 381) POTASSIUM (BEAKER) 4.6 meq/L 3.5-5.1 (test code = 379) CHLORIDE (BEAKER) 99 meq/L 98-107 (test code = 382) CO2 (BEAKER) (test 26 meq/L 22-29 code = 355) BLOOD UREA NITROGEN 36 mg/dL 7-21 H (BEAKER) (test code = 354) CREATININE (BEAKER) 8.04 mg/dL 0.57-1.25 H (test code = 358) GLUCOSE RANDOM 165 mg/dL 70-105 H (BEAKER) (test code = 652) CALCIUM (BEAKER) 8.0 mg/dL 8.4-10.2 L (test code = 697) EGFR (BEAKER) (test 7 mL/min/1.73 ESTIMAT ED GFR IS code = 1092) sq m NOT ACCURATE CREATININE CLEARANCE IN PREDICTING GLOMERULAR FILTRATION RATE . ESTIMATED GFR I S NOT APPLICABLE FOR DIALYSIS PATIEN TS. Contract Engineer ID - PIAYA LCBC W/PLT COUNT & AUTO [id number] 04:04:00 Test Item Value Reference Range Interpretation Comments WHITE BLOOD CELL COUNT (BEAKER) 7.0 K/ L 3.5-10.5 (test code = 775) RED BLOOD CELL COUNT (BEAKER) 3.16 M/ L 4.63-6.08 L (test code = 761) HEMOGLOBIN (BEAKER) (test code = 8.0 GM/DL 13.7-17.5 L 410) HEMATOCRIT (BEAKER) (test code = 27.3 % 40.1-51.0 L 411) MEAN CORPUSCULAR VOLUME (BEAKER) 86.4 fL 79.0-92.2 (test code = 753) MEAN CORPUSCULAR HEMOGLOBIN 25.3 pg 25.7-32.2 L (BEAKER) (test code = 751) MEAN CORPUSCULAR HEMOGLOBIN CONC 29.3 GM/DL 32.3-36.5 L (BEAKER) (test code = 752) RED CELL DISTRIBUTION WIDTH 15.8 % 11.6-14.4 H (BEAKER) (test code = 412) PLATELET COUNT (BEAKER) (test 314 K/CU MM 150-450 code = 756) MEAN PLATELET VOLUME (BEAKER) 9.6 fL 9.4-12.4 (test code = 754) NUCLEATED RED BLOOD CELLS 0 /100 WBC 0-0 (BEAKER) (test code = 413) NEUTROPHILS RELATIVE PERCENT 69 % (BEAKER) (test code = 429) LYMPHOCYTES RELATIVE PERCENT 13 % (BEAKER) (test code = 430) MONOCYTES RELATIVE PERCENT 12 % (BEAKER) (test code = 431) EOSINOPHILS RELATIVE PERCENT 6 % (BEAKER) (test code = 432) BASOPHILS RELATIVE PERCENT 1 % (BEAKER) (test code = 437) NEUTROPHILS ABSOLUTE COUNT 4.86 K/ L 1.78-5.38 (BEAKER) (test code = 670) LYMPHOCYTES ABSOLUTE COUNT 0.88 K/ L 1.32-3.57 L (BEAKER) (test code = 414) MONOCYTES ABSOLUTE COUNT (BEAKER) 0.81 K/ L 0.30-0.82 (test code = 415) EOSINOPHILS ABSOLUTE COUNT 0.41 K/ L 0.04-0.54 (BEAKER) (test code = 416) BASOPHILS ABSOLUTE COUNT (BEAKER) 0.06 K/ L 0.01-0.08 (test code = 417) IMMATURE GRANULOCYTES-RELATIVE 0 % 0-1 PERCENT (BEAKER) (test code = 2801) POCT-GLUCOSE [id number] 21:37:00 Test Item Value Reference Range Interpretation Comments POC-GLUCOSE METER 251 mg/dL 70-110 H : TESTED A T [facility] 6720 (BEAKER) (test code = [facility], 1538) 14981: Contract Engineer/Techni estefani ID = [id number] for PHIL MURRELL TTRohit HEMODIALYSIS [id number] 18:27:52Avery Reeves, SUNITA 12/07/2019 6:29 PMTolerated and completed 3hours and 0 minutes. No distress noted, asymptomatic. Denies any discomfort and pain.UF fluid removed 2liters.Secured access with pressure dressing gauze and tape. No further bleeding nted. Report given to nurse Betzy DORSEY. Latest lab result:Lab Results Component Value Date WBC 6.9 12/06/2019 HGB 8.0 (L) 12/06/2019 HCT 27.4 (L) 12/06/2019 MCV 85.9 12/06/2019 PLT 346 12/06/2019 Lab Results Component Value Date GLUCOSE 85 12/06/2019 CALCIUM 7.9 (L) 12/06/2019 NA 136 12/06/2019 K 4.8 12/06/2019 CO2 25 12/06/2019 CL 97 (L) 12/06/2019 BUN 50 (H) 12/06/2019 CREATININE 10.06 (H) 12/06/2019 Avery OAKLEY, RN II7S6- Adult [id number] [id number] 17:54:00 Test Item Value Reference Range Interpretation Comments POC-GLUCOSE METER 108 mg/dL 70-110 : TESTED A T [facility] 6720 (BEAKER) (test code = [facility], 1538) 12566: Contract Engineer/Techni estefani ID = [id number] for Avery Levy POCT-GLUCOSE [id number] 11:57:00 Test Item Value Reference Range Interpretation Comments POC-GLUCOSE METER 85 mg/dL 70-110 : TESTED A T [facility] 6720 (BEAKER) (test code = [facility], 1538) 92435: Contract Engineer/Techni estefani ID = [id number] for IAIN DEXTER POCT-GLUCOSE [id number] 08:11:00 Test Item Value Reference Range Interpretation Comments POC-GLUCOSE METER 66 mg/dL 70-110 L : TESTED A T [facility] 6720 (BEAKER) (test code = DASIA Garcia [facility], 1538) 68206: Contract Engineer/Techni estefani ID = [id number] for IAIN DEXTER FUNGUS CULTURE + [id number] 15:59:00 Test Item Value Reference Range Interpretation Comments CULTURE (BEAKER) (test No fungus isolated in code = 1095) 28 days FUNGUS SMEAR (BEAKER) No fungi seen (test code = 1406) POCT-GLUCOSE [id number] 15:44:00 Test Item Value Reference Range Interpretation Comments POC-GLUCOSE METER 97 mg/dL 70-110 : TESTED A T [facility] 6720 (BEAKER) (test code = DASIA Garcia [facility], 1538) 04775: Contract Engineer/Techni estefani ID = [id number] for QUEEN SWANSON POCT-GLUCOSE [id number] 10:44:00 Test Item Value Reference Range Interpretation Comments POC-GLUCOSE METER 71 mg/dL 70-110 : TESTED A T [facility] 6720 (BEAKER) (test code = DASIA Garcia [facility], 1538) 34559: Contract Engineer/Techni estefani ID = [id number] for QUEEN SWANSON SARS-COV2/RT-PCR ([facility])2019-12-06 08:14:00 Test Item Value Reference Range Interpretation Comments SARS-COV2/RT-PCR (test Negative Not Detected, Negative, code = 5628898) See external report for linked test SARS-COV-2 PERFORMING LAB [facility] (test code = 9015516) Negative result for this test determines that SARS-CoV-2 RNA was not present in the specimen above the Limit of Detection (LOD). However, Negative results do not preclude SARS-CoV-2 infection and should not be used as the sole basis for treatment or patient management decisions. Negative results mustbe combined with clinical observations, patient history, and epidemiological information. A false negative result may occur if a specimen is improperly collected, transported or handled. A false negative result should be considered if patient's recent exposures or clinical presentation indicate that COVID-19 (SARS-CoV-2) is likely and diagnostic tests for other causes of illness are negative. Re-testing should be considered in cases of suspected false negatives.The limit of detection for this assay is 800 copies/mL.This SARS CoV-2 test is a real-time RT-PCR test intended for the qualitative detection of nucleic acid from SARS-CoV-2 in a nasopharyngeal swab specimen collected from individuals susp ected of COVID-19 by their healthcare provider.This test has not been Food and Drug Administration (FDA) cleared or approved. This is a modified version of an approved Emergency Use Authorization (EUA) and is in the process of review by the FDA. Once authorized by the FDA, the issued EUA will be effective until the declaration that circumstances exist justifying the authorization of the emergency use of in vitro diagnostic tests for detection and/or diagnosis of COVID-19 is terminated under Section 564(b)(2) of the Act or the EUA is revoked under Section 564(g) of the Act.Fact Sheet for Healthcare Providers:https://www.[employer]/sites/default/files/product/documents/Fact_Shee t_VR_Latmlclve_Xokx_BHRX-ZzS-7.pdfFact Sheet for Healthcare Patients:https://www.[employer]/sites/default/files/product/ documents/Dslw_Yssps_Eyhpipfz_Modk_ASLJ-NsH-5.pdfPerforming Laboratory:[facility], [place] [address]ELAM-ERYZERN METER 2019-12-06 08:03:00 Test Item Value Reference Range Interpretation Comments POC-GLUCOSE METER 68 mg/dL 70-110 L : TESTED A T [facility] 6720 [facility] (test code = DASIA Garcia [facility], 1538) 00276: Contract Engineer/Techni estefani ID = [id number] for QUEEN SWANSON BASIC METABOLIC [id number] 07:45:00 Test Item Value Reference Range Interpretation Comments SODIUM (BEAKER) 136 meq/L 136-145 (test code = 381) POTASSIUM (BEAKER) 4.8 meq/L 3.5-5.1 (test code = 379) CHLORIDE (BEAKER) 97 meq/L 98-107 L (test code = 382) CO2 (BEAKER) (test 25 meq/L 22-29 code = 355) BLOOD UREA NITROGEN 50 mg/dL 7-21 H (BEAKER) (test code = 354) CREATININE (BEAKER) 10.06 mg/dL 0.57-1.25 H (test code = 358) GLUCOSE RANDOM 85 mg/dL 70-105 (BEAKER) (test code = 652) CALCIUM (BEAKER) 7.9 mg/dL 8.4-10.2 L (test code = 697) EGFR (BEAKER) (test 5 mL/min/1.73 ESTIMAT ED GFR IS code = 1092) sq m NOT ACCURATE CREATININE CLEARANCE IN PREDICTING GLOMERULAR FILTRATION RATE . ESTIMATED GFR I S NOT APPLICABLE FOR DIALYSIS PATIEN TS. Contract Engineer ID - [id number] 07:30:00 Test Item Value Reference Range Interpretation Comments PHOSPHORUS (BEAKER) (test code = 4.8 mg/dL 2.3-4.7 H 604) Contract Engineer ID - [id number] 07:30:00 Test Item Value Reference Range Interpretation Comments MAGNESIUM (BEAKER) (test code = 2.4 mg/dL 1.6-2.6 627) Contract Engineer ID - EDASICBC W/PLT COUNT & AUTO [id number] 07:19:00 Test Item Value Reference Range Interpretation Comments WHITE BLOOD CELL COUNT (BEAKER) 6.9 K/ L 3.5-10.5 (test code = 775) RED BLOOD CELL COUNT (BEAKER) 3.19 M/ L 4.63-6.08 L (test code = 761) HEMOGLOBIN (BEAKER) (test code = 8.0 GM/DL 13.7-17.5 L 410) HEMATOCRIT (BEAKER) (test code = 27.4 % 40.1-51.0 L 411) MEAN CORPUSCULAR VOLUME (BEAKER) 85.9 fL 79.0-92.2 (test code = 753) MEAN CORPUSCULAR HEMOGLOBIN 25.1 pg 25.7-32.2 L (BEAKER) (test code = 751) MEAN CORPUSCULAR HEMOGLOBIN CONC 29.2 GM/DL 32.3-36.5 L (BEAKER) (test code = 752) RED CELL DISTRIBUTION WIDTH 15.9 % 11.6-14.4 H (BEAKER) (test code = 412) PLATELET COUNT (BEAKER) (test 346 K/CU MM 150-450 code = 756) MEAN PLATELET VOLUME (BEAKER) 9.5 fL 9.4-12.4 (test code = 754) NUCLEATED RED BLOOD CELLS 0 /100 WBC 0-0 (BEAKER) (test code = 413) NEUTROPHILS RELATIVE PERCENT 64 % (BEAKER) (test code = 429) LYMPHOCYTES RELATIVE PERCENT 12 % (BEAKER) (test code = 430) MONOCYTES RELATIVE PERCENT 12 % (BEAKER) (test code = 431) EOSINOPHILS RELATIVE PERCENT 11 % (BEAKER) (test code = 432) BASOPHILS RELATIVE PERCENT 1 % (BEAKER) (test code = 437) NEUTROPHILS ABSOLUTE COUNT 4.39 K/ L 1.78-5.38 (BEAKER) (test code = 670) LYMPHOCYTES ABSOLUTE COUNT 0.80 K/ L 1.32-3.57 L (BEAKER) (test code = 414) MONOCYTES ABSOLUTE COUNT (BEAKER) 0.83 K/ L 0.30-0.82 H (test code = 415) EOSINOPHILS ABSOLUTE COUNT 0.74 K/ L 0.04-0.54 H (BEAKER) (test code = 416) BASOPHILS ABSOLUTE COUNT (BEAKER) 0.08 K/ L 0.01-0.08 (test code = 417) IMMATURE GRANULOCYTES-RELATIVE 0 % 0-1 PERCENT (BEAKER) (test code = 2801) PROTHROMBIN [id number] 06:53:00 Test Item Value Reference Range Interpretation Comments PROTIME (BEAKER) (test code = 16.1 seconds 11.9-14.2 H 759) INR (BEAKER) (test code = 370) 1.32 <=5.90 Effective 08/02/2018: PT Reference Range ChangeNew: 11.9-14.2 Previous: 11.7- 14.7RECOMMENDED COUMADIN/WARFARIN INR THERAPY RANGESSTANDARD DOSE: 2.0-3.0 Includes: PROPHYLAXIS for venous thrombosis, systemic embolization; TREATMENT for venous thrombosis and/or pulmonary embolus.HIGH RISK: Target INR is2.5-3.5 for patients wiht mechanical heart valves.POCT-GLUCOSE [id number] 21:16:00 Test Item Value Reference Range Interpretation Comments POC-GLUCOSE METER 257 mg/dL 70-110 H : TESTED A T [facility] 6720 (BEAKER) (test code = DASIA SONG [place], 1538) 61466: Contract Engineer/Techni estefani ID = [id number] for PHIL MURRELL POCT-GLUCOSE [id number] 21:21:00 Test Item Value Reference Range Interpretation Comments POC-GLUCOSE METER 247 mg/dL 70-110 H : TESTED A T [facility] 6720 (BEAKER) (test code = DASIA Garcia [facility], 1538) 00467: Contract Engineer/Techni estefani ID = [id number] for CRYSTAL RANGEL HEMODIALYSIS [id number] 19:55:04Angelica Rutherford RN 11/30/2019 7:56 PM3.5 hours of HD completed, Net UF of 2 L, Pt tolerated txwell. Fistula needles removed, held manual pressure until bleeding controlled. Reports given to primary RN. BP 145/70 | Pulse 57 | Temp 97.9 F (36.6 C) (Oral) | Resp 10 | Ht 1.854 m (6' 1") | Wt 93 kg (205 lb 0.4 oz) | SpO2 100% | BMI 27.05 kg/m2 Lab Results Component Value Date [id number] 11/28/2019 CALCIUM 8.6 11/28/2019 NA 134 (L) 11/28/2019 K 4.4 11/28/2019 CO2 25 11/28/2019 CL 96 (L) 11/28/2019 BUN 31 (H) 11/28/2019 CREATININE 8.61 (H) 11/28/2019 Lab Results Component Value Date WBC 7.2 11/28/2019 HGB 8.3 (L) 11/28/2019 HCT 27.7 (L) 11/28/2019 MCV 87.7 11/28/2019 PLT 358 11/28/2019 Lab Results Component Value Date HEPBSAG Nonreactive 11/21/2019 No results found for: HEPBSAB No Known Allergies No chief complaint on file. Active Ambulatory Problems Diagnosis Date Noted Non-healing wound of amputation stump ([facility]) 06/14/2019 Ischemia of foot 06/14/2019 Type 2 diabetes mellitus with diabetic peripheral angiopathy and gangrene, with long-term current use of insulin ([facility]) 06/14/2019 PAD (peripheral artery disease) ([facility]) 06/14/2019 ESRD onhemodialysis ([facility]) Status post transmetatarsal amputation of foot, right ([facility]) 10/18/2019 Status post skin graft using Integra wound dressing 10/18/2019 DM (diabetes mellitus) type II, controlled, with peripheral vascular disorder ([facility]) 10/18/2019 HTN (hypertension) 10/20/2019 Thrombophlebitis 10/20/2019 Resolved Ambulatory Problems Diagnosis Date Noted No Resolved Ambulatory Problems Past Medical History: Diagnosis Date Blind left eye CKD (chronic kidney disease) stage V requiring chronic dialysis ([facility]) 06/14/2019 Diabetes mellitus ([facility]) Diabetes mellitus with neuropathy ([facility]) Hemodialysis access, fistula mature ([facility]) HTN (hypertension) Hx of CABG 09/2018 PAD (peripheral artery disease) ([facility]) Poor historian Type 2 diabetesmellitus with diabetic peripheral angiopathy and gangrene, with long-term current use of insulin ([facility]) 06/14/2019 Past Surgical History: Procedure Laterality Date AMPUTATION,FOOT Right 06/19/2019 Procedure: AMPUTATION,FOOT; Surgeon: Star Cloud DPM; Location: [facility] OR; Service: Podiatry; Laterality: Right; AMPUTATION,FOOT Right 10/18/2019 Procedure: AMPUTATION,FOOT; Surgeon: Star Cloud DPM; Location: [facility] OR; Service: Podiatry; Laterality: Right; REVISION OF AMPUTATEDFOOT AMPUTATION,FOOT Right 11/08/2019 Procedure: AMPUTATION,FOOT; Surgeon: Star Cloud DPM; Location: [facility] OR; Service: Podiatry; Laterality: Right; AMPUTATION,TOE Right 06/19/2019 Procedure: AMPUTATION,TOE; Surgeon: Star Cloud DPM; Location: [facility] OR; Service: Podiatry; Laterality: Right; AMPUTATION 4TH DIGIT PARTIAL, 2nd ,3rd ,4th RAY AMPUTATION RIGHT FOOT WITH POSSIBLE TRANSMETATARASAL AMPUTATION WITH SPY MACHINE,PULSE LAVAGE AND VERSA JET CORONARY ARTERY BYPASS GRAFT 09/2018 DEBRIDEMENT/I&D,WOUND EXTREMITY LOWER Right 10/18/2019 Procedure: DEBRIDEMEN T/I&D,WOUND EXTREMITY LOWER; Surgeon: Star Cloud DPM; Location: [facility] OR; Service: Podiatry; Laterality: Right; REVISION OF TRANSMETASAL WOUND/ESCHAR DEBRIDEMENT, POSSIBLE RESECTION OF BONE, IRRIGATION OF WOUND, APPLICATION OF ACELLULAR DERMAL MTRIX, WITH PULSE LAVAGE, POSSIBLE WOUNDVAC, GRAFT JACKET, DERMACELL, VERSA JET DEBRIDEMENT/I&D,WOUND EXTREMITY LOWER Right 11/08/2019 Procedure: DEBRIDEMENT/I&D,WOUND EXTREMITY LOWER; Surgeon: Star Cloud DPM; Location: [facility] OR; Service: Podiatry; Laterality: Right; REVISION OF POST WOUND TRANSMETATARSAL AMPUTATION, DEBRIDEMENT, PULSE LAVAGE, ALCON APPLICATION OF ACCEULLAR DERMAL MATRIX, RIGHT FOOT, POSSIBLE BONE RESECTION FOOT AMPUTATION THROUGH METATARSAL Left 2010 OSTECTOMY,FOOT/ TOE Right 06/19/2019Procedure: OSTECTOMY,FOOT/ TOE; Surgeon: Star Cloud DPM; Location: [facility] OR; Service: Podiatry; Laterality: Right; OSTECTOMY,FOOT/ TOE Right 10/18/2019 Procedure: OSTECTOMY,FOOT/ TOE; Surgeon: Star Cloud DPM; Location: [facility]; Service: Podiatry; Laterality: Right; OSTECTOMY,FOOT/ TOE Right 11/08/2019 Procedure: OSTECTOMY,FOOT/ TOE; Surgeon: Star Cloud DPM; Location: [facility]; Service: Podiatry; Laterality: Right; PERIPHERAL ANGIOS / AORTOGRAM Bilateral 06/15/2019 Procedure: PERIPHERAL ANGIOS / AORTOGRAM; Surgeon: Clark Danielle MD; Location: [facility]; Service: General Surgery; Laterality: Bilateral; PERIPHERAL ANGIOS / AORTOGRAM Right 11/15/2019 Procedure: PERIPHERAL ANGIOS / AORTOGRAM; Surgeon: Clark Danielle MD; Location: [facility]; Service: General Surgery; Laterality: Right; PLACEMENT,WOUND VAC Right 10/18/2019 Procedure: PLACEMENT,WOUND VAC; Surgeon: Star Cloud DPM; Location: [facility]; Service: Podiatry; Laterality: Right; PROCEDURE W/SPY ELITE FLUORESCENT VASCULAR ANGIOGRAPHY N/A 06/19/2019 Procedure: PROCEDURE W/ SPY ELITE FLUORESCENT VASCULAR ANGIOGRAPHY; Surgeon: Star Cloud DPM; Location: [facility] OR; Service: Podiatry; Laterality: N/A; SKIN GRAFT,SKIN SUBSTITUTE Right 10/18/2019 Procedure: SKIN GRAFT,SKIN SUBSTITUTE; Surgeon: Star Cloud DPM; Location: [facility] OR; Service: Podiatry; Laterality: Right; WITH 8X12 CM DERMACELL SKIN GRAFT,SKIN SUBSTITUTE Right 11/08/2019 Procedure: SKIN GRAFT,SKIN SUBSTITUTE; Surgeon: Star Cloud DPM; Location: [facility] OR; Service: Podiatry; Laterality: Right; TOE AMPUTATION Right 2nd toe 05/2019, 3rd toe 06/2019 wound debridement back 2015 wound debridement /staph infection [facility]ford [facility] POCT-GLUCOSE [id number] 12:32:00 Test Item Value Reference Range Interpretation Comments POC-GLUCOSE METER 95 mg/dL 70-110 : TESTED A T [facility] 6720 (BEAKER) (test code = [facility], 153) 36004: Contract Engineer/Techni estefani ID = [id number] for QUANG OS, JACOB POCT-GLUCOSE [id number] 08:26:00 Test Item Value Reference Range Interpretation Comments POC-GLUCOSE METER 98 mg/dL 70-110 : TESTED A T [facility] 6720 (BEAKER) (test code = [facility] [employer] [facility], 153) 94100: Contract Engineer/Techni estefani ID = [id number] for QUANG OS, JACOB POCT-GLUCOSE [id number] 21:54:00 Test Item Value Reference Range Interpretation Comments POC-GLUCOSE METER 153 mg/dL 70-110 H : TESTED A T [facility] 6720 (BEAKER) (test code = [facility], 153) 08863: Contract Engineer/Techni estefani ID = [id number] for UL LATTIL, SJ POCT-GLUCOSE [id number] 17:04:00 Test Item Value Reference Range Interpretation Comments POC-GLUCOSE METER 194 mg/dL 70-110 H : TESTED A T [facility] 6720 (BEAKER) (test code = [facility], 153) 47534: Contract Engineer/Techni estefani ID = [id number] for HIGGINS BLEZaire, JANIE POCT-GLUCOSE [id number] 12:29:00 Test Item Value Reference Range Interpretation Comments POC-GLUCOSE METER 162 mg/dL 70-110 H : TESTED A T [facility] 6720 (BEAKER) (test code = [facility], 1538) 21269: Contract Engineer/Techni estefani ID = [id number] for JANIE KAUR POCT-GLUCOSE [id number] 09:42:00 Test Item Value Reference Range Interpretation Comments POC-GLUCOSE METER 178 mg/dL 70-110 H : TESTED A T [facility] 6720 (BEAKER) (test code = [facility], 1538) 89032: Contract Engineer/Techni estefani ID = [id number] for NG JOSE, TYRONE POCT-GLUCOSE [id number] 07:19:00 Test Item Value Reference Range Interpretation Comments POC-GLUCOSE METER 115 mg/dL 70-110 H : TESTED A T [facility] 6720 (BEAKER) (test code = [facility], 1538) 96257: Contract Engineer/Techni estefani ID = [id number] for UL LATTIL, SJ Creatine Kinase (CK)2019-11-29 06:25:00 Test Item Value Reference Range Interpretation Comments Total CK (test code = 249 U/L 29-200 H 2157-6) MITCHELL (test code = MITCHELL) Contract Engineer ID - JAQUELINE M Lab Interpretation (test Abnormal code = 35512-1) [facility] 06:25:00 Test Item Value Reference Range Interpretation Comments CREATINE KINASE TOTAL (BEAKER) (test 249 U/L 29-200 H code = 380) Contract Engineer ID - JAQUELINE MPOCT-GLUCOSE [id number] 21:03:00 Test Item Value Reference Range Interpretation Comments POC-GLUCOSE METER 157 mg/dL 70-110 H : TESTED A T [facility] 6720 (BEAKER) (test code = [facility] [place], 153) [id number]: Contract Engineer/Techni estefani ID = [id number] for UL LATTIL, SJ POCT-GLUCOSE [id number] 18:26:00 Test Item Value Reference Range Interpretation Comments POC-GLUCOSE METER 136 mg/dL 70-110 H : TESTED A T [facility] 6720 (BEAKER) (test code = [facility] [place], 1538) [id number]: Contract Engineer/Techni estefani ID = [id number] for NG JOSE, TYRONE POCT-GLUCOSE [id number] 11:59:00 Test Item Value Reference Range Interpretation Comments POC-GLUCOSE METER 160 mg/dL 70-110 H : TESTED A T [facility] 6720 (BEAKER) (test code = DASIA Garcia [place], 1538) [address]: Contract Engineer/Techni estefani ID = [id number] for GUNNER PANDYA POCT-GLUCOSE [id number] 08:00:00 Test Item Value Reference Range Interpretation Comments POC-GLUCOSE METER 89 mg/dL 70-110 : TESTED A T [facility] 6720 (BEAKER) (test code = DASIA Garcia [facility], 1538) 18905: Contract Engineer/Techni estefani ID = [id number] for GUNNER MUHAMMAD BASIC METABOLIC [id number] 04:43:00 Test Item Value Reference Range Interpretation Comments SODIUM (BEAKER) 134 meq/L 136-145 L (test code = 381) POTASSIUM (BEAKER) 4.4 meq/L 3.5-5.1 (test code = 379) CHLORIDE (BEAKER) 96 meq/L 98-107 L (test code = 382) CO2 (BEAKER) (test 25 meq/L 22-29 code = 355) BLOOD UREA NITROGEN 31 mg/dL 7-21 H (BEAKER) (test code = 354) CREATININE (BEAKER) 8.61 mg/dL 0.57-1.25 H (test code = 358) GLUCOSE RANDOM 105 mg/dL 70-105 (BEAKER) (test code = 652) CALCIUM (BEAKER) 8.6 mg/dL 8.4-10.2 (test code = 697) EGFR (BEAKER) (test 6 mL/min/1.73 ESTIMAT ED GFR IS code = 1092) sq m NOT ACCURATE CREATININE CLEARANCE IN PREDICTING GLOMERULAR FILTRATION RATE . ESTIMATED GFR I S NOT APPLICABLE FOR DIALYSIS PATIEN TS. Contract Engineer ID - BSCBC W/PLT COUNT & AUTO [id number] 04:35:00 Test Item Value Reference Range Interpretation Comments WHITE BLOOD CELL COUNT (BEAKER) 7.2 K/ L 3.5-10.5 (test code = 775) RED BLOOD CELL COUNT (BEAKER) 3.16 M/ L 4.63-6.08 L (test code = 761) HEMOGLOBIN (BEAKER) (test code = 8.3 GM/DL 13.7-17.5 L 410) HEMATOCRIT (BEAKER) (test code = 27.7 % 40.1-51.0 L 411) MEAN CORPUSCULAR VOLUME (BEAKER) 87.7 fL 79.0-92.2 (test code = 753) MEAN CORPUSCULAR HEMOGLOBIN 26.3 pg 25.7-32.2 (BEAKER) (test code = 751) MEAN CORPUSCULAR HEMOGLOBIN CONC 30.0 GM/DL 32.3-36.5 L (BEAKER) (test code = 752) RED CELL DISTRIBUTION WIDTH 16.0 % 11.6-14.4 H (BEAKER) (test code = 412) PLATELET COUNT (BEAKER) (test 358 K/CU MM 150-450 code = 756) MEAN PLATELET VOLUME (BEAKER) 9.5 fL 9.4-12.4 (test code = 754) NUCLEATED RED BLOOD CELLS 0 /100 WBC 0-0 (BEAKER) (test code = 413) NEUTROPHILS RELATIVE PERCENT 55 % (BEAKER) (test code = 429) LYMPHOCYTES RELATIVE PERCENT 24 % (BEAKER) (test code = 430) MONOCYTES RELATIVE PERCENT 11 % (BEAKER) (test code = 431) EOSINOPHILS RELATIVE PERCENT 9 % (BEAKER) (test code = 432) BASOPHILS RELATIVE PERCENT 1 % (BEAKER) (test code = 437) NEUTROPHILS ABSOLUTE COUNT 3.97 K/ L 1.78-5.38 (BEAKER) (test code = 670) LYMPHOCYTES ABSOLUTE COUNT 1.71 K/ L 1.32-3.57 (BEAKER) (test code = 414) MONOCYTES ABSOLUTE COUNT (BEAKER) 0.75 K/ L 0.30-0.82 (test code = 415) EOSINOPHILS ABSOLUTE COUNT 0.63 K/ L 0.04-0.54 H (BEAKER) (test code = 416) BASOPHILS ABSOLUTE COUNT (BEAKER) 0.09 K/ L 0.01-0.08 H (test code = 417) IMMATURE GRANULOCYTES-RELATIVE 0 % 0-1 PERCENT (BEAKER) (test code = 2801) POCT-GLUCOSE [id number] 21:07:00 Test Item Value Reference Range Interpretation Comments POC-GLUCOSE METER 146 mg/dL 70-110 H : TESTED A T [facility] 6720 (BEAKER) (test code = DASIA SONG [place], 1538) 12267: Contract Engineer/Techni estefani ID = [id number] for JAD SALGUERO POCT-GLUCOSE [id number] 17:47:00 Test Item Value Reference Range Interpretation Comments POC-GLUCOSE METER 138 mg/dL 70-110 H : TESTED A T [facility] 6720 (BEAKER) (test code = [facility], 1538) 24092: Contract Engineer/Techni estefani ID = [id number] for JACOB LYLES POCT-GLUCOSE [id number] 12:12:00 Test Item Value Reference Range Interpretation Comments POC-GLUCOSE METER 157 mg/dL 70-110 H : TESTED A T [facility] 6720 (BEAKER) (test code = [facility], 1538) 51676: Contract Engineer/Techni estefani ID = [id number] for JACOB LYLES POCT-GLUCOSE [id number] 09:04:00 Test Item Value Reference Range Interpretation Comments POC-GLUCOSE METER 142 mg/dL 70-110 H : TESTED A T [facility] 6720 (BEAKER) (test code = [facility], 1538) 61069: Contract Engineer/Techni estefani ID = [id number] for JACOB LYLES BASIC METABOLIC [id number] 05:51:00 Test Item Value Reference Range Interpretation Comments SODIUM (BEAKER) 133 meq/L 136-145 L (test code = 381) POTASSIUM (BEAKER) 4.9 meq/L 3.5-5.1 (test code = 379) CHLORIDE (BEAKER) 96 meq/L 98-107 L (test code = 382) CO2 (BEAKER) (test 26 meq/L 22-29 code = 355) BLOOD UREA NITROGEN 24 mg/dL 7-21 H (BEAKER) (test code = 354) CREATININE (BEAKER) 6.78 mg/dL 0.57-1.25 H (test code = 358) GLUCOSE RANDOM 177 mg/dL 70-105 H (BEAKER) (test code = 652) CALCIUM (BEAKER) 8.3 mg/dL 8.4-10.2 L (test code = 697) EGFR (BEAKER) (test 8 mL/min/1.73 ESTIMAT ED GFR IS code = 1092) sq m NOT ACCURATE CREATININE CLEARANCE IN PREDICTING GLOMERULAR FILTRATION RATE . ESTIMATED GFR I S NOT APPLICABLE FOR DIALYSIS PATIEN TS. Contract Engineer ID - BSCBC W/PLT COUNT & AUTO [id number] 05:17:00 Test Item Value Reference Range Interpretation Comments WHITE BLOOD CELL COUNT (BEAKER) 7.9 K/ L 3.5-10.5 (test code = 775) RED BLOOD CELL COUNT (BEAKER) 3.29 M/ L 4.63-6.08 L (test code = 761) HEMOGLOBIN (BEAKER) (test code = 8.4 GM/DL 13.7-17.5 L 410) HEMATOCRIT (BEAKER) (test code = 28.9 % 40.1-51.0 L 411) MEAN CORPUSCULAR VOLUME (BEAKER) 87.8 fL 79.0-92.2 (test code = 753) MEAN CORPUSCULAR HEMOGLOBIN 25.5 pg 25.7-32.2 L (BEAKER) (test code = 751) MEAN CORPUSCULAR HEMOGLOBIN CONC 29.1 GM/DL 32.3-36.5 L (BEAKER) (test code = 752) RED CELL DISTRIBUTION WIDTH 16.2 % 11.6-14.4 H (BEAKER) (test code = 412) PLATELET COUNT (BEAKER) (test 377 K/CU MM 150-450 code = 756) MEAN PLATELET VOLUME (BEAKER) 9.6 fL 9.4-12.4 (test code = 754) NUCLEATED RED BLOOD CELLS 0 /100 WBC 0-0 (BEAKER) (test code = 413) NEUTROPHILS RELATIVE PERCENT 74 % (BEAKER) (test code = 429) LYMPHOCYTES RELATIVE PERCENT 12 % (BEAKER) (test code = 430) MONOCYTES RELATIVE PERCENT 9 % (BEAKER) (test code = 431) EOSINOPHILS RELATIVE PERCENT 4 % (BEAKER) (test code = 432) BASOPHILS RELATIVE PERCENT 1 % (BEAKER) (test code = 437) NEUTROPHILS ABSOLUTE COUNT 5.85 K/ L 1.78-5.38 H (BEAKER) (test code = 670) LYMPHOCYTES ABSOLUTE COUNT 0.95 K/ L 1.32-3.57 L (BEAKER) (test code = 414) MONOCYTES ABSOLUTE COUNT (BEAKER) 0.67 K/ L 0.30-0.82 (test code = 415) EOSINOPHILS ABSOLUTE COUNT 0.31 K/ L 0.04-0.54 (BEAKER) (test code = 416) BASOPHILS ABSOLUTE COUNT (BEAKER) 0.08 K/ L 0.01-0.08 (test code = 417) IMMATURE GRANULOCYTES-RELATIVE 0 % 0-1 PERCENT (BEAKER) (test code = 2801) POCT-GLUCOSE [id number] 21:20:00 Test Item Value Reference Range Interpretation Comments POC-GLUCOSE METER 136 mg/dL 70-110 H : TESTED A T [facility] 6720 (BEAKER) (test code = DASIA Garcia [facility], 1538) 78185: Contract Engineer/Techni estefani ID = [id number] for CRYSTAL RANGEL POCT-GLUCOSE [id number] 17:34:00 Test Item Value Reference Range Interpretation Comments POC-GLUCOSE METER 205 mg/dL 70-110 H : TESTED A T [facility] 6720 (BEAKER) (test code = DASIA Garcia [facility], 1538) 60144: Contract Engineer/Techni estefani ID = [id number] for JACOB LYLES HEMODIALYSIS [id number] 12:35:06Avery Reeves RN 11/26/2019 12:38 PMTolerated and completed 3 hours and 30 minutes. No distressnoted, asymptomatic. Denies any discomfort and pain.UF fluid removed 2 liters.Secured access with pressure dressing gauze and tape. No further bleeding nted. Report given to Primary Nurse Latest lab result:Lab Results Component Value Date WBC 7.1 11/26/2019 HGB 8.8 (L) 11/26/2019 HCT 29.6 (L) 11/26/2019 MCV 88.1 11/26/2019 PLT 354 11/26/2019 Lab Results Component Value Date GLUCOSE 137 (H) 11/26/2019 CALCIUM 8.9 11/26/2019 NA 130 (L) 11/26/2019 K 4.9 11/26/2019 CO2 23 11/26/2019 CL 93 (L) 11/26/2019 BUN 37 (H) 11/26/2019 CREATININE 9.68 (H) 11/26/2019 Avery OAKLEY, RN II7S6- Adult [id number] 5730[facility] [id number] 11:22:00 Test Item Value Reference Range Interpretation Comments POC-GLUCOSE METER 98 mg/dL 70-110 : TESTED A T [facility] 6720 (BEAKER) (test code = DASIA Garcia [place], 1538) 82677: Contract Engineer/Techni estefani ID = [id number] for Avery Mendoza POCT-GLUCOSE [id number] 08:07:00 Test Item Value Reference Range Interpretation Comments POC-GLUCOSE METER 117 mg/dL 70-110 H : TESTED A T [facility] 6720 (BEAKER) (test code = DASIA Garcia [facility], 1538) 06783: Contract Engineer/Techni estefani ID = [id number] for JANIE KAUR CBC W/PLT COUNT & AUTO [id number] 05:21:00 Test Item Value Reference Range Interpretation Comments WHITE BLOOD CELL COUNT (BEAKER) 7.1 K/ L 3.5-10.5 (test code = 775) RED BLOOD CELL COUNT (BEAKER) 3.36 M/ L 4.63-6.08 L (test code = 761) HEMOGLOBIN (BEAKER) (test code = 8.8 GM/DL 13.7-17.5 L 410) HEMATOCRIT (BEAKER) (test code = 29.6 % 40.1-51.0 L 411) MEAN CORPUSCULAR VOLUME (BEAKER) 88.1 fL 79.0-92.2 (test code = 753) MEAN CORPUSCULAR HEMOGLOBIN 26.2 pg 25.7-32.2 (BEAKER) (test code = 751) MEAN CORPUSCULAR HEMOGLOBIN CONC 29.7 GM/DL 32.3-36.5 L (BEAKER) (test code = 752) RED CELL DISTRIBUTION WIDTH 16.1 % 11.6-14.4 H (BEAKER) (test code = 412) PLATELET COUNT (BEAKER) (test 354 K/CU MM 150-450 code = 756) MEAN PLATELET VOLUME (BEAKER) 9.6 fL 9.4-12.4 (test code = 754) NUCLEATED RED BLOOD CELLS 0 /100 WBC 0-0 (BEAKER) (test code = 413) NEUTROPHILS RELATIVE PERCENT 59 % (BEAKER) (test code = 429) LYMPHOCYTES RELATIVE PERCENT 19 % (BEAKER) (test code = 430) MONOCYTES RELATIVE PERCENT 12 % (BEAKER) (test code = 431) EOSINOPHILS RELATIVE PERCENT 9 % (BEAKER) (test code = 432) BASOPHILS RELATIVE PERCENT 1 % (BEAKER) (test code = 437) NEUTROPHILS ABSOLUTE COUNT 4.21 K/ L 1.78-5.38 (BEAKER) (test code = 670) LYMPHOCYTES ABSOLUTE COUNT 1.36 K/ L 1.32-3.57 (BEAKER) (test code = 414) MONOCYTES ABSOLUTE COUNT (BEAKER) 0.83 K/ L 0.30-0.82 H (test code = 415) EOSINOPHILS ABSOLUTE COUNT 0.61 K/ L 0.04-0.54 H (BEAKER) (test code = 416) BASOPHILS ABSOLUTE COUNT (BEAKER) 0.10 K/ L 0.01-0.08 H (test code = 417) IMMATURE GRANULOCYTES-RELATIVE 0 % 0-1 PERCENT (BEAKER) (test code = 2801) BASIC METABOLIC [id number] 05:17:00 Test Item Value Reference Range Interpretation Comments SODIUM (BEAKER) 130 meq/L 136-145 L (test code = 381) POTASSIUM (BEAKER) 4.9 meq/L 3.5-5.1 (test code = 379) CHLORIDE (BEAKER) 93 meq/L 98-107 L (test code = 382) CO2 (BEAKER) (test 23 meq/L 22-29 code = 355) BLOOD UREA NITROGEN 37 mg/dL 7-21 H (BEAKER) (test code = 354) CREATININE (BEAKER) 9.68 mg/dL 0.57-1.25 H (test code = 358) GLUCOSE RANDOM 137 mg/dL 70-105 H (BEAKER) (test code = 652) CALCIUM (BEAKER) 8.9 mg/dL 8.4-10.2 (test code = 697) EGFR (BEAKER) (test 6 mL/min/1.73 ESTIMAT ED GFR IS code = 1092) sq m NOT ACCURATE CREATININE CLEARANCE IN PREDICTING GLOMERULAR FILTRATION RATE . ESTIMATED GFR I S NOT APPLICABLE FOR DIALYSIS PATIEN TS. Contract Engineer ID - DBPOCT-GLUCOSE [id number] 21:45:00 Test Item Value Reference Range Interpretation Comments POC-GLUCOSE METER 144 mg/dL 70-110 H : TESTED A T [facility] 6720 (BEAKER) (test code = DASIA SONG [place], 1538) 53293: Contract Engineer/Techni estefani ID = [id number] for SJ HERBERT POCT-GLUCOSE [id number] 17:16:00 Test Item Value Reference Range Interpretation Comments POC-GLUCOSE METER 134 mg/dL 70-110 H : TESTED A T [facility] 6720 (BEAKER) (test code = [facility], [facility]8) 01449: Contract Engineer/Techni estefani ID = [id number] for FA ITH, GUNNER POCT-GLUCOSE [id number] 12:00:00 Test Item Value Reference Range Interpretation Comments POC-GLUCOSE METER 120 mg/dL 70-110 H : TESTED A T [facility] 6720 (BEAKER) (test code = [facility], [facility]8) 24314: Contract Engineer/Techni estefani ID = [id number] for FA ITH, GUNNER POCT-GLUCOSE [id number] 08:04:00 Test Item Value Reference Range Interpretation Comments POC-GLUCOSE METER 74 mg/dL 70-110 : TESTED A T [facility] 6720 (BEAKER) (test code = [facility], [facility]8) 02182: Contract Engineer/Techni estefani ID = [id number] for FAIT H, GUNNER POCT-GLUCOSE [id number] 21:31:00 Test Item Value Reference Range Interpretation Comments POC-GLUCOSE METER 155 mg/dL 70-110 H : TESTED A T [facility] 6720 (BEAKER) (test code = [facility], [facility]8) 03385: Contract Engineer/Techni estefani ID = [id number] for UL LATTIL, SJ POCT-GLUCOSE [id number] 17:03:00 Test Item Value Reference Range Interpretation Comments POC-GLUCOSE METER 127 mg/dL 70-110 H : TESTED A T [facility] 6720 (BEAKER) (test code = [facility], [facility]8) 01600: Contract Engineer/Techni estefani ID = [id number] for FA ITH, GUNNER POCT-GLUCOSE [id number] 12:28:00 Test Item Value Reference Range Interpretation Comments POC-GLUCOSE METER 147 mg/dL 70-110 H : TESTED A T [facility] 6720 (BEAKER) (test code = [facility], 1538) 34027: Contract Engineer/Techni estefani ID = [id number] for FA ITH, GUNNER POCT-GLUCOSE [id number] 08:06:00 Test Item Value Reference Range Interpretation Comments POC-GLUCOSE METER 107 mg/dL 70-110 : TESTED A T [facility] 6720 (BEAKER) (test code = [facility], 1538) 67304: Contract Engineer/Techni estefani ID = [id number] for TRE CRAWFORD GUNNER POCT-GLUCOSE [id number] 21:07:00 Test Item Value Reference Range Interpretation Comments POC-GLUCOSE METER 179 mg/dL 70-110 H : TESTED A T [facility] 6720 (BEAKER) (test code = [facility], 1538) 76325: Contract Engineer/Techni estefani ID = [id number] for ARUNA LATMARCELO, SJ POCT-GLUCOSE [id number] 17:04:00 Test Item Value Reference Range Interpretation Comments POC-GLUCOSE METER 201 mg/dL 70-110 H : TESTED A T [facility] 6720 (BEAKER) (test code = [facility], 1538) 55555: Contract Engineer/Techni estefani ID = [id number] for JAIME PANDYAY POCT-GLUCOSE [id number] 12:29:00 Test Item Value Reference Range Interpretation Comments POC-GLUCOSE METER 110 mg/dL 70-110 : TESTED A T [facility] 6720 (BEAKER) (test code = [facility], 1538) 15297: Contract Engineer/Techni estefani ID = [id number] for Avery Levy SARS-COV2/RT-PCR ([facility])2019-11-23 11:35:00 Test Item Value Reference Range Interpretation Comments SARS-COV2/RT-PCR (test Negative Not Detected, Negative, code = 2259398) See external report for linked test SARS-COV-2 PERFORMING LAB [facility] (test code = 3660275) Negative result for this test determines that SARS-CoV-2 RNA was not present in the specimen above the Limit of Detection (LOD). However, Negative results do not preclude SARS-CoV-2 infection and should not be used as the sole basis for treatment or patient management decisions. Negative results mustbe combined with clinical observations, patient history, and epidemiological information. A false negative result may occur if a specimen is improperly collected, transported or handled. A false negative result should be considered if patient's recent exposures or clinical presentation indicate that COVID-19 (SARS-CoV-2) is likely and diagnostic tests for other causes of illness are negative. Re-testing should be considered in cases of suspected false negatives.The limit of detection for this assay is 800 copies/mL.This SARS CoV-2 test is a real-time RT-PCR test intended for the qualitative detection of nucleic acid from SARS-CoV-2 in a nasopharyngeal swab specimen collected from individuals susp ected of COVID-19 by their healthcare provider.This test has not been Food and Drug Administration (FDA) cleared or approved. This is a modified version of an approved Emergency Use Authorization (EUA) and is in the process of review by the FDA. Once authorized by the FDA, the issued EUA will be effective until the declaration that circumstances exist justifying the authorization of the emergency use of in vitro diagnostic tests for detection and/or diagnosis of COVID-19 is terminated under Section 564(b)(2) of the Act or the EUA is revoked under Section 564(g) of the Act.Fact Sheet for Healthcare Providers:https://www.wufoo.Veebow/sites/default/files/product/documents/Fact_Shee n_YR_Lxokdgeur_Fpfs_NSVO-LkM-1.pdfFact Sheet for Healthcare Patients:https://www.wufoo.Veebow/sites/default/files/product/ documents/Rdgp_Ozcun_Cezfynkt_Xjjx_JHKF-KvK-6.pdfPerforming Laboratory:[facility], [place] [address]YTQQ-SBOKHEX METER 2019-11-23 08:05:00 Test Item Value Reference Range Interpretation Comments POC-GLUCOSE METER 92 mg/dL 70-110 : TESTED A T [facility] 6720 (Progeny SolarAKER) (test code = [facility], 1538) 28217: Contract Engineer/Techni estefani ID = [id number] for GUNNER MUHAMMAD POCT-GLUCOSE [id number] 21:46:00 Test Item Value Reference Range Interpretation Comments POC-GLUCOSE METER 145 mg/dL 70-110 H : TESTED A T [facility] 6720 (BEAKER) (test code = [facility], 1538) 00662: Contract Engineer/Techni estefani ID = [id number] for CA RBAJAL, TIMA POCT-GLUCOSE [id number] 17:51:00 Test Item Value Reference Range Interpretation Comments POC-GLUCOSE METER 180 mg/dL 70-110 H : TESTED A T [facility] 6720 (BEAKER) (test code = [facility], 1538) 88920: Contract Engineer/Techni estefani ID = [id number] for SA NTOS, JACOB POCT-GLUCOSE [id number] 11:57:00 Test Item Value Reference Range Interpretation Comments POC-GLUCOSE METER 151 mg/dL 70-110 H : TESTED A T [facility] 6720 (BEAKER) (test code = [facility], 1538) 89883: Contract Engineer/Techni estefani ID = [id number] for SA NTOS, JACOB POCT-GLUCOSE [id number] 08:07:00 Test Item Value Reference Range Interpretation Comments POC-GLUCOSE METER 110 mg/dL 70-110 : TESTED A T [facility] 6720 (BEAKER) (test code = [facility], 1538) 71994: Contract Engineer/Techni estefani ID = [id number] for SA NTOS, JAOCB CREATINE KINASE (CK)2019-11-22 05:38:00 Test Item Value Reference Range Interpretation Comments CREATINE KINASE TOTAL (AKER) (test 57 U/L 29-200 code = 380) Contract Engineer ID - PIAYA LPOCT-GLUCOSE [id number] 21:49:00 Test Item Value Reference Range Interpretation Comments POC-GLUCOSE METER 171 mg/dL 70-110 H : TESTED A T [facility] 6720 (BEAKER) (test code = [facility], 1538) 26359: Contract Engineer/Techni estefani ID = [id number] for CA RBAJAL, TIMA ANAEROBIC [id number] 18:36:00 Test Item Value Reference Range Interpretation Comments CULTURE (BEAKER) (test No anaerobes isolated code = 1095) HEPATITIS B SURFACE [id number] 17:43:00 Test Item Value Reference Range Interpretation Comments HEPATITIS B SURFACE ANTIGEN (2) Nonreactive Nonreactive (BEAKER) (test code = 2585) Specimen is considered negative for HBsAg.POCT-GLUCOSE [id number] 12:07:00 Test Item Value Reference Range Interpretation Comments POC-GLUCOSE METER 106 mg/dL 70-110 : TESTED A T [facility] 6720 (BEAKER) (test code = [facility], 153) 69738: Contract Engineer/Techni estefani ID = [id number] for SA NTOS, JACOB POCT-GLUCOSE [id number] 08:05:00 Test Item Value Reference Range Interpretation Comments POC-GLUCOSE METER 113 mg/dL 70-110 H : TESTED A T [facility] 6720 (BEAKER) (test code = [facility], 153) 32180: Contract Engineer/Techni estefani ID = [id number] for SA NTOS, JACOB POCT-GLUCOSE [id number] 22:58:00 Test Item Value Reference Range Interpretation Comments POC-GLUCOSE METER 201 mg/dL 70-110 H : TESTED A T [facility] 6720 (BEAKER) (test code = [facility], 153) 69127: Contract Engineer/Techni estefani ID = [id number] for UL LATTIL, SJ POCT-GLUCOSE [id number] 17:14:00 Test Item Value Reference Range Interpretation Comments POC-GLUCOSE METER 128 mg/dL 70-110 H : TESTED A T [facility] 6720 (BEAKER) (test code = [facility], 153) 58652: Contract Engineer/Techni estefani ID = [id number] for FA ITH, GUNNER POCT-GLUCOSE [id number] 12:17:00 Test Item Value Reference Range Interpretation Comments POC-GLUCOSE METER 171 mg/dL 70-110 H : TESTED A T [facility] 6720 (BEAKER) (test code = [facility], 153) 48239: Contract Engineer/Techni estefani ID = [id number] for FA ITH, GUNNER POCT-GLUCOSE [id number] 23:29:00 Test Item Value Reference Range Interpretation Comments POC-GLUCOSE METER 210 mg/dL 70-110 H : TESTED A T [facility] 6720 (BEAKER) (test code = [facility], 153) 89883: Contract Engineer/Techni estefani ID = [id number] for UL LATTIL, SJ POCT-GLUCOSE [id number] 20:51:00 Test Item Value Reference Range Interpretation Comments POC-GLUCOSE METER 132 mg/dL 70-110 H : TESTED A T [facility] 6720 (BEAKER) (test code = [facility], 1538) 75239: Contract Engineer/Techni estefani ID = [id number] for ALTAGRACIA SQUIRES HEMODIALYSIS [id number] 19:45:01Avery Reeves, SUNITA 11/19/2019 7:46 PMTolerated and completed 3hours and 30 minutes. No distress noted, asymptomatic. Denies any discomfort and pain.UF fluid removed 2liters.Secured access with pressure dressing gauze and tape. No further bleeding nted. Report given to primary nurse Latest lab result:Lab Results Component Value Date WBC 9.8 11/19/2019 HGB 7.9 (L) 11/19/2019 HCT 27.3 (L) 11/19/2019 MCV 90.7 11/19/2019 PLT 425 11/19/2019 Lab Results Component Value Date GLUCOSE 114 (H) 11/19/2019 CALCIUM 8.5 11/19/2019 NA 133 (L) 11/19/2019 K 4.4 11/19/2019 CO2 26 11/19/2019 CL 98 11/19/2019 BUN 28 (H) 11/19/2019 CREATININE 7.97 (H) 11/19/2019 Avery OAKLEY, RN II7S6- Adult [id number] [facility]60[facility] [id number] 12:26:00 Test Item Value Reference Range Interpretation Comments POC-GLUCOSE METER 155 mg/dL 70-110 H : TESTED A T [facility] 6720 (BEAKER) (test code = [facility], 1538) 04656: Contract Engineer/Techni estefani ID = [id number] for FA TY GUNNER POCT-GLUCOSE [id number] 08:09:00 Test Item Value Reference Range Interpretation Comments POC-GLUCOSE METER 109 mg/dL 70-110 : TESTED A T [facility] 6720 (BEAKER) (test code = [facility], 1538) [id number]: Contract Engineer/Techni estefani ID = [id number] for FA TY, GUNNER BASIC METABOLIC [id number] 07:08:00 Test Item Value Reference Range Interpretation Comments SODIUM (BEAKER) 133 meq/L 136-145 L (test code = 381) POTASSIUM (BEAKER) 4.4 meq/L 3.5-5.1 (test code = 379) CHLORIDE (BEAKER) 98 meq/L 98-107 (test code = 382) CO2 (BEAKER) (test 26 meq/L 22-29 code = 355) BLOOD UREA NITROGEN 28 mg/dL 7-21 H (BEAKER) (test code = 354) CREATININE (BEAKER) 7.97 mg/dL 0.57-1.25 H (test code = 358) GLUCOSE RANDOM 114 mg/dL 70-105 H (BEAKER) (test code = 652) CALCIUM (BEAKER) 8.5 mg/dL 8.4-10.2 (test code = 697) EGFR (BEAKER) (test 7 mL/min/1.73 ESTIMAT ED GFR IS code = 1092) sq m NOT ACCURATE CREATININE CLEARANCE IN PREDICTING GLOMERULAR FILTRATION RATE . ESTIMATED GFR I S NOT APPLICABLE FOR DIALYSIS PATIEN TS. Contract Engineer ID - [id number] (HEMOGRAM ONLY)2019-11-19 04:19:00 Test Item Value Reference Range Interpretation Comments WHITE BLOOD CELL COUNT (BEAKER) 9.8 K/ L 3.5-10.5 (test code = 775) RED BLOOD CELL COUNT (BEAKER) 3.01 M/ L 4.63-6.08 L (test code = 761) HEMOGLOBIN (BEAKER) (test code = 7.9 GM/DL 13.7-17.5 L 410) HEMATOCRIT (BEAKER) (test code = 27.3 % 40.1-51.0 L 411) MEAN CORPUSCULAR VOLUME (BEAKER) 90.7 fL 79.0-92.2 (test code = 753) MEAN CORPUSCULAR HEMOGLOBIN 26.2 pg 25.7-32.2 (BEAKER) (test code = 751) MEAN CORPUSCULAR HEMOGLOBIN CONC 28.9 GM/DL 32.3-36.5 L (BEAKER) (test code = 752) RED CELL DISTRIBUTION WIDTH 17.0 % 11.6-14.4 H (BEAKER) (test code = 412) PLATELET COUNT (BEAKER) (test 425 K/CU MM 150-450 code = 756) MEAN PLATELET VOLUME (BEAKER) 9.3 fL 9.4-12.4 L (test code = 754) NUCLEATED RED BLOOD CELLS 0 /100 WBC 0-0 (BEAKER) (test code = 413) POCT-GLUCOSE [id number] 21:23:00 Test Item Value Reference Range Interpretation Comments POC-GLUCOSE METER 182 mg/dL 70-110 H : TESTED A T [facility] 6720 (BEAKER) (test code = [facility], 1538) [id number]: Contract Engineer/Techni estefani ID = [id number] for CA TIMA SHETTY POCT-GLUCOSE [id number] 17:32:00 Test Item Value Reference Range Interpretation Comments POC-GLUCOSE METER 142 mg/dL 70-110 H : TESTED A T [facility] 6720 (BEAKER) (test code = [facility], 1538) [id number]: Contract Engineer/Techni estefani ID = [id number] for SA JACOB DE LEON POCT-GLUCOSE [id number] 13:24:00 Test Item Value Reference Range Interpretation Comments POC-GLUCOSE METER 164 mg/dL 70-110 H : TESTED A T [facility] 6720 (BEAKER) (test code = [facility], 1538) [address]: Contract Engineer/Techni estefani ID = [id number] for SA JACOB DE LEON BASIC METABOLIC [id number] 12:57:00 Test Item Value Reference Range Interpretation Comments SODIUM (BEAKER) 135 meq/L 136-145 L (test code = 381) POTASSIUM (BEAKER) 4.0 meq/L 3.5-5.1 (test code = 379) CHLORIDE (BEAKER) 98 meq/L 98-107 (test code = 382) CO2 (BEAKER) (test 28 meq/L 22-29 code = 355) BLOOD UREA NITROGEN 19 mg/dL 7-21 (BEAKER) (test code = 354) CREATININE (BEAKER) 5.36 mg/dL 0.57-1.25 H (test code = 358) GLUCOSE RANDOM 137 mg/dL 70-105 H (BEAKER) (test code = 652) CALCIUM (BEAKER) 9.1 mg/dL 8.4-10.2 (test code = 697) EGFR (BEAKER) (test 11 mL/min/1.73 ESTIMA DORIS GFR IS code = 1092) sq m NOT ACCURATE CREATININE CLEARANCE IN PREDICTING GLOMERULAR FILTRATION RATE . ESTIMATED GFR I S NOT APPLICABLE FOR DIALYSIS PATIEN TS. POCT-GLUCOSE [id number] 08:04:00 Test Item Value Reference Range Interpretation Comments POC-GLUCOSE METER 137 mg/dL 70-110 H : TESTED A T [facility] 6720 (BEAKER) (test code = [facility] [place] [place], 1538) [address]: Contract Engineer/Techni estefani ID = [id number] for JACOB LYLES CBC (HEMOGRAM ONLY)2019-11-18 06:36:00 Test Item Value Reference Range Interpretation Comments WHITE BLOOD CELL COUNT (BEAKER) 9.8 K/ L 3.5-10.5 (test code = 775) RED BLOOD CELL COUNT (BEAKER) 2.91 M/ L 4.63-6.08 L (test code = 761) HEMOGLOBIN (BEAKER) (test code = 7.6 GM/DL 13.7-17.5 L 410) HEMATOCRIT (BEAKER) (test code = 26.9 % 40.1-51.0 L 411) MEAN CORPUSCULAR VOLUME (BEAKER) 92.4 fL 79.0-92.2 H (test code = 753) MEAN CORPUSCULAR HEMOGLOBIN 26.1 pg 25.7-32.2 (BEAKER) (test code = 751) MEAN CORPUSCULAR HEMOGLOBIN CONC 28.3 GM/DL 32.3-36.5 L (BEAKER) (test code = 752) RED CELL DISTRIBUTION WIDTH 17.0 % 11.6-14.4 H (BEAKER) (test code = 412) PLATELET COUNT (BEAKER) (test 408 K/CU MM 150-450 code = 756) MEAN PLATELET VOLUME (BEAKER) 9.7 fL 9.4-12.4 (test code = 754) NUCLEATED RED BLOOD CELLS 0 /100 WBC 0-0 (BEAKER) (test code = 413) HEMODIALYSIS [id number] 22:51:08Kajal Munoz, RN 11/17/2019 10:51 PMPatient is awake, alert and oriented X 4. Here to be dialyzed for 3.5 hours with UF goal of 3L. The following most updated labs are as follows: Lab Results Component Value Date HEPBSAG Nonreactive 10/20/2019 Lab Results Component Value Date GLUCOSE 143 (H) 11/17/2019 CALCIUM 8.5 11/17/2019 NA 133 (L) 11/17/2019 K 4.6 11/17/2019 CO2 26 11/17/2019 CL 98 11/17/2019 BUN 35 (H) 11/17/2019 CREATININE 8.93 (H) 11/17/2019 Lab Results Component Value Date WBC 10.5 11/17/2019 HGB 7.5 (L) 11/17/2019 HCT 25.9 (L) 11/17/2019 MCV 90.2 11/17/2019 PLT 49255 Patient dialyzed for 3.5 hours with Net UF = 3 L using the left arm AV fistula access.Vital signs stable and well within the set parameters. Report given to Bassem DORSEY. Patient was able totolerate the treatment well.[facility] [id number] 22:05:00 Test Item Value Reference Range Interpretation Comments POC-GLUCOSE METER 123 mg/dL 70-110 H : TESTED A T [facility] 6720 (BEAKER) (test code = [facility], 1538) 04246: Contract Engineer/Techni estefani ID = [id number] for ABDIRAHMAN OSORIO POCT-GLUCOSE [id number] 17:52:00 Test Item Value Reference Range Interpretation Comments POC-GLUCOSE METER 111 mg/dL 70-110 H : TESTED A T [facility] 6720 (BEAKER) (test code = [facility] Pick a Student [facility], 1538) [address]696: Contract Engineer/Techni estefani ID = [id number] for JACOB LYLES BASIC METABOLIC [id number] 09:54:00 Test Item Value Reference Range Interpretation Comments SODIUM (BEAKER) 133 meq/L 136-145 L (test code = 381) POTASSIUM (BEAKER) 4.6 meq/L 3.5-5.1 (test code = 379) CHLORIDE (BEAKER) 98 meq/L 98-107 (test code = 382) CO2 (BEAKER) (test 26 meq/L 22-29 code = 355) BLOOD UREA NITROGEN 35 mg/dL 7-21 H (BEAKER) (test code = 354) CREATININE (BEAKER) 8.93 mg/dL 0.57-1.25 H (test code = 358) GLUCOSE RANDOM 143 mg/dL 70-105 H (BEAKER) (test code = 652) CALCIUM (BEAKER) 8.5 mg/dL 8.4-10.2 (test code = 697) EGFR (BEAKER) (test 6 mL/min/1.73 ESTIMAT ED GFR IS code = 1092) sq m NOT ACCURATE CREATININE CLEARANCE IN PREDICTING GLOMERULAR FILTRATION RATE . ESTIMATED GFR I S NOT APPLICABLE FOR DIALYSIS PATIEN TS. Contract Engineer ID - JAQUELINE MPOCT-GLUCOSE [id number] 08:13:00 Test Item Value Reference Range Interpretation Comments POC-GLUCOSE METER 134 mg/dL 70-110 H : TESTED A T [facility] 6720 (BEAKER) (test code = [facility] [place], 1538) 623[address]: Contract Engineer/Techni estefani ID = [id number] for JACOB LYLES CBC (HEMOGRAM ONLY)2019-11-17 07:03:00 Test Item Value Reference Range Interpretation Comments WHITE BLOOD CELL COUNT (BEAKER) 10.5 K/ L 3.5-10.5 (test code = 775) RED BLOOD CELL COUNT (BEAKER) 2.87 M/ L 4.63-6.08 L (test code = 761) HEMOGLOBIN (BEAKER) (test code = 7.5 GM/DL 13.7-17.5 L 410) HEMATOCRIT (BEAKER) (test code = 25.9 % 40.1-51.0 L 411) MEAN CORPUSCULAR VOLUME (BEAKER) 90.2 fL 79.0-92.2 (test code = 753) MEAN CORPUSCULAR HEMOGLOBIN 26.1 pg 25.7-32.2 (BEAKER) (test code = 751) MEAN CORPUSCULAR HEMOGLOBIN CONC 29.0 GM/DL 32.3-36.5 L (BEAKER) (test code = 752) RED CELL DISTRIBUTION WIDTH 17.1 % 11.6-14.4 H (BEAKER) (test code = 412) PLATELET COUNT (BEAKER) (test 426 K/CU MM 150-450 code = 756) MEAN PLATELET VOLUME (BEAKER) 9.5 fL 9.4-12.4 (test code = 754) NUCLEATED RED BLOOD CELLS 0 /100 WBC 0-0 (BEAKER) (test code = 413) POCT-GLUCOSE [id number] 21:52:00 Test Item Value Reference Range Interpretation Comments POC-GLUCOSE METER 154 mg/dL 70-110 H : TESTED A T [facility] 6720 (BEAKER) (test code = [facility], 1538) 32943: Contract Engineer/Techni estefani ID = [id number] for SA CRYSTAL HIGGINS POCT-GLUCOSE [id number] 17:47:00 Test Item Value Reference Range Interpretation Comments POC-GLUCOSE METER 179 mg/dL 70-110 H : TESTED A T [facility] 6720 (BEAKER) (test code = [facility], 1538) 89081: Contract Engineer/Techni estefani ID = [id number] for SA JACOB DE LEON POCT-GLUCOSE [id number] 11:58:00 Test Item Value Reference Range Interpretation Comments POC-GLUCOSE METER 158 mg/dL 70-110 H : TESTED A T [facility] 6720 (BEAKER) (test code = [facility], 1538) 653[address]: Contract Engineer/Techni estefani ID = [id number] for JACOB LYLES BASIC METABOLIC [id number] 08:15:00 Test Item Value Reference Range Interpretation Comments SODIUM (BEAKER) 136 meq/L 136-145 (test code = 381) POTASSIUM (BEAKER) 4.7 meq/L 3.5-5.1 (test code = 379) CHLORIDE (BEAKER) 99 meq/L 98-107 (test code = 382) CO2 (BEAKER) (test 26 meq/L 22-29 code = 355) BLOOD UREA NITROGEN 27 mg/dL 7-21 H (BEAKER) (test code = 354) CREATININE (BEAKER) 6.85 mg/dL 0.57-1.25 H (test code = 358) GLUCOSE RANDOM 146 mg/dL 70-105 H (BEAKER) (test code = 652) CALCIUM (BEAKER) 8.4 mg/dL 8.4-10.2 (test code = 697) EGFR (BEAKER) (test 8 mL/min/1.73 ESTIMAT ED GFR IS code = 1092) sq m NOT ACCURATE CREATININE CLEARANCE IN PREDICTING GLOMERULAR FILTRATION RATE . ESTIMATED GFR I S NOT APPLICABLE FOR DIALYSIS PATIEN TS. Contract Engineer ID - ANTONY FPOCT-GLUCOSE [id number] 08:09:00 Test Item Value Reference Range Interpretation Comments POC-GLUCOSE METER 163 mg/dL 70-110 H : TESTED A T [facility] 6720 (BEAKER) (test code = [facility], 153) 15947: Contract Engineer/Techni estefani ID = [id number] for JACOB LYLES CBC (HEMOGRAM ONLY)2019-11-16 07:04:00 Test Item Value Reference Range Interpretation Comments WHITE BLOOD CELL COUNT (BEAKER) 10.9 K/ L 3.5-10.5 H (test code = 775) RED BLOOD CELL COUNT (BEAKER) 3.25 M/ L 4.63-6.08 L (test code = 761) HEMOGLOBIN (BEAKER) (test code = 8.5 GM/DL 13.7-17.5 L 410) HEMATOCRIT (BEAKER) (test code = 29.6 % 40.1-51.0 L 411) MEAN CORPUSCULAR VOLUME (BEAKER) 91.1 fL 79.0-92.2 (test code = 753) MEAN CORPUSCULAR HEMOGLOBIN 26.2 pg 25.7-32.2 (BEAKER) (test code = 751) MEAN CORPUSCULAR HEMOGLOBIN CONC 28.7 GM/DL 32.3-36.5 L (BEAKER) (test code = 752) RED CELL DISTRIBUTION WIDTH 17.1 % 11.6-14.4 H (BEAKER) (test code = 412) PLATELET COUNT (BEAKER) (test 449 K/CU MM 150-450 code = 756) MEAN PLATELET VOLUME (BEAKER) 9.8 fL 9.4-12.4 (test code = 754) NUCLEATED RED BLOOD CELLS 0 /100 WBC 0-0 (BEAKER) (test code = 413) POCT-GLUCOSE [id number] 21:05:00 Test Item Value Reference Range Interpretation Comments POC-GLUCOSE METER 199 mg/dL 70-110 H : TESTED A T [facility] 6720 (BEAKER) (test code = [facility], 153) 07382: Contract Engineer/Techni estefani ID = [id number] for SJ HERBERT POCT-GLUCOSE [id number] 17:09:00 Test Item Value Reference Range Interpretation Comments POC-GLUCOSE METER 129 mg/dL 70-110 H : TESTED A T [facility] 6720 (BEAKER) (test code = [facility], 153) 39106: Contract Engineer/Techni estefani ID = [id number] for GUNNER PANDYA POC ACTIVATED CLOTTING [id number] 16:14:00 Test Item Value Reference Range Interpretation Comments Activated Clotting Time 202 sec : 74 -137 seconds, (test code = 441) Baseline: TESTED AT [facility] 67[address] [facility], [address]: Contract Engineer/Techni estefani ID = [id number] for DAILY HOGUE [id number] 16:14:00 Test Item Value Reference Range Interpretation Comments ACTIVATED CLOTTING TIME 202 sec : 74 -137 seconds, ([facility]) (test code = Baseli ne: TESTED AT 441) [facility] 67[address] [facility], [address] 30: Contract Engineer/Techni estefani ID = [id number] for DAILY HOGUE POCT-GLUCOSE [id number] 15:08:00 Test Item Value Reference Range Interpretation Comments POC-GLUCOSE METER 126 mg/dL 70-110 H : TESTED A T [facility] 6720 ([facility]) (test code = [facility], 1538) 37695: Contract Engineer/Techni estefani ID = [id number] for FERNANDA YOUNGER POCT-GLUCOSE [id number] 14:35:00 Test Item Value Reference Range Interpretation Comments POC-GLUCOSE METER 137 mg/dL 70-110 H : TESTED A T [place] [address] ([facility]) (test code = [facility], 1538) 92964: Contract Engineer/Techni estefani ID = [id number] for TYRONE VAZQUEZ HEMODIALYSIS [id number] 10:15:06Chadwick Lin MD 11/15/2019 10:15 AM11/15/2019I have personally seen and examined Dayton Grijalva on dialysisIndication : ESRDPrescription: F160, 3-4 hrs, 2.0K, 2.5 Ca, UF 2 LitersReason for exam: BP fluctuation & adjust dry weightTolerating dialysis ok LEFT arm tender at wrist due to recent IV. Rec ice packAngiogram +/- intervention this PM with DR Baldomero Lin MD Office [phone] [facility](CELLAVISION MANUAL DIFF)2019-11-15 09:51:00 Test Item Value Reference Range Interpretation Comments NEUTROPHILS - REL 76 % (CELLAVISION)(BEAKER) (test code = 2816) LYMPHOCYTES - REL 12 % (CELLAVISION)(BEAKER) (test code = 2817) MONOCYTES - REL 5 % (CELLAVISION)(BEAKER) (test code = 2818) EOSINOPHILS - REL 6 % (CELLAVISION)(BEAKER) (test code = 2819) BANDS - REL (CELLAVISION)(BEAKER) 1 % 0-10 (test code = 2826) NEUTROPHILS - ABS 7.98 K/ul 1.78-5.38 H (CELLAVISION)(BEAKER) (test code = 2830) LYMPHOCYTES - ABS 1.26 K/ul 1.32-3.57 L (CELLAVISION)(BEAKER) (test code = 2831) MONOCYTES - ABS 0.53 K/uL 0.30-0.82 (CELLAVISION)(BEAKER) (test code = 2832) EOSINOPHILS - ABS 0.63 K/uL 0.04-0.54 H (CELLAVISION)(BEAKER) (test code = 2834) BANDS - ABS (CELLAVISION)(BEAKER) 0.11 K/uL 0.00-0.80 (test code = 2840) TOTAL COUNTED (BEAKER) (test code = 100 1351) WBC MORPHOLOGY (BEAKER) (test code Normal = 487) PLT MORPHOLOGY (BEAKER) (test code Normal = 486) POLYCHROMATOPHILLIC RBCS(BEAKER) 1+ few (test code = 478) HYPOCHROMIA (BEAKER) (test code = 1+ few 963) ANISOCYTOSIS (BEAKER) (test code = 1+ few 961) MICROCYTES (BEAKER) (test code = 1+ few 965) ARTIFACT (CELLAVISION)(BEAKER) Present (test code = 3432) PLATELET CONCENTRATION Adequate (CELLAVISION)(BEAKER) (test code = 3438) Contract Engineer ID - Daily OverholtUser comments: Slide comments:POCT-GLUCOSE METER 2019-11-15 08:08:00 Test Item Value Reference Range Interpretation Comments POC-GLUCOSE METER 128 mg/dL 70-110 H : TESTED A T [facility] 6720 (BEAKER) (test code = [facility] [place], 1538) [address]: Contract Engineer/Techni estefani ID = [id number] for GUNNER PANDYA BASIC METABOLIC [id number] 06:08:00 Test Item Value Reference Range Interpretation Comments SODIUM (BEAKER) 134 meq/L 136-145 L (test code = 381) POTASSIUM (BEAKER) 4.3 meq/L 3.5-5.1 (test code = 379) CHLORIDE (BEAKER) 97 meq/L 98-107 L (test code = 382) CO2 (BEAKER) (test 25 meq/L 22-29 code = 355) BLOOD UREA NITROGEN 40 mg/dL 7-21 H (BEAKER) (test code = 354) CREATININE (BEAKER) 9.30 mg/dL 0.57-1.25 H (test code = 358) GLUCOSE RANDOM 133 mg/dL 70-105 H (BEAKER) (test code = 652) CALCIUM (BEAKER) 8.1 mg/dL 8.4-10.2 L (test code = 697) EGFR (BEAKER) (test 6 mL/min/1.73 ESTIMAT ED GFR IS code = 1092) sq m NOT ACCURATE CREATININE CLEARANCE IN PREDICTING GLOMERULAR FILTRATION RATE . ESTIMATED GFR I S NOT APPLICABLE FOR DIALYSIS PATIEN TS. Contract Engineer ID - EDASICREATINE KINASE (CK)2019-11-15 06:06:00 Test Item Value Reference Range Interpretation Comments CREATINE KINASE TOTAL (BEAKER) (test 46 U/L 29-200 code = 380) Contract Engineer ID - [id number] 05:09:00 Test Item Value Reference Range Interpretation Comments PARTIAL THROMBOPLASTIN TIME 52.1 seconds 22.5-36.0 H (BEAKER) (test code = 760) PROTHROMBIN TIME/[id number] 05:08:00 Test Item Value Reference Range Interpretation Comments PROTIME (BEAKER) (test code = 17.2 seconds 11.9-14.2 H 759) INR (BEAKER) (test code = 370) 1.45 <=5.90 Effective 08/02/2018: PT Reference Range ChangeNew: 11.9-14.2 Previous: 11.7- 14.7RECOMMENDED COUMADIN/WARFARIN INR THERAPY RANGESSTANDARD DOSE: 2.0-3.0 Includes: PROPHYLAXIS for venous thrombosis, systemic embolization; TREATMENT for venous thrombosis and/or pulmonary embolus.HIGH RISK: Target INR is2.5-3.5 for patients wiht mechanical heart valves.CBC with platelet count + manual diff 2019-11-15 05:00:00 Test Item Value Reference Range Interpretation Comments WBC (test code = 6690-2) 10.5 See_Comment [A utomated message] The system [employer] generated this result transmitted ref erence range: 3.5 - 10 .5 K/L. The refe rence range was not u sed to interpret this result as normal/abnor mal. RBC (test code = 789-8) 2.76 See_Comment L [Au tomated message] The system [employer] generated this result transmitted ref erence range: 4.63 - 6 .08 M/L. The refe rence range was not u sed to interpret this result as normal/abnor mal. MCHC (test code = 786-4) 29.6 See_Comment L [A utomated message] The system [employer] generated this result transmitted ref erence range: 32.3 - 3 6.5 GM/DL. The refe rence range was not u sed to interpret this result as normal/abnor mal. Hematocrit (test code = 24.7 % 40.1-51 L 4544-3) MCV (test code = 787-2) 89.5 fL 79-92.2 MCH (test code = 785-6) 26.4 pg 25.7-32.2 RDW (test code = 788-0) 16.8 % 11.6-14.4 H Platelets (test code = 399 See_Comment [Aut omated message] 777-3) The system [employer] generated this result transmitted ref erence range: 150 - 45 0 K/CU MM. The referen ce range was not u sed to interpret this result as normal/abnor mal. MPV (test code = 9.4 fL 9.4-12.4 66283-5) nRBC (test code = 413) 0 See_Comment [Aut omated message] The system [employer] generated this result transmitted ref erence range: 0 - 0 /1 00 WBC. The refere nce range was not u sed to interpret this result as normal/abnor mal. Lab Interpretation (test Abnormal code = 32739-9) [facility] WITH PLATELET COUNT + MANUAL [id number] 05:00:00 Test Item Value Reference Range Interpretation Comments WHITE BLOOD CELL COUNT (BEAKER) 10.5 K/ L 3.5-10.5 (test code = 775) RED BLOOD CELL COUNT (BEAKER) 2.76 M/ L 4.63-6.08 L (test code = 761) HEMOGLOBIN (BEAKER) (test code = 7.3 GM/DL 13.7-17.5 L 410) HEMATOCRIT (BEAKER) (test code = 24.7 % 40.1-51.0 L 411) MEAN CORPUSCULAR VOLUME (BEAKER) 89.5 fL 79.0-92.2 (test code = 753) MEAN CORPUSCULAR HEMOGLOBIN 26.4 pg 25.7-32.2 (BEAKER) (test code = 751) MEAN CORPUSCULAR HEMOGLOBIN CONC 29.6 GM/DL 32.3-36.5 L (BEAKER) (test code = 752) RED CELL DISTRIBUTION WIDTH 16.8 % 11.6-14.4 H (BEAKER) (test code = 412) PLATELET COUNT (BEAKER) (test 399 K/CU MM 150-450 code = 756) MEAN PLATELET VOLUME (BEAKER) 9.4 fL 9.4-12.4 (test code = 754) NUCLEATED RED BLOOD CELLS 0 /100 WBC 0-0 (BEAKER) (test code = 413) POCT-GLUCOSE [id number] 21:29:00 Test Item Value Reference Range Interpretation Comments POC-GLUCOSE METER 189 mg/dL 70-110 H : TESTED A T [facility] 6720 (BEAKER) (test code = [facility] Pick a Student [facility], 1538) [address]: Contract Engineer/Techni estefani ID = [id number] for UL LATTIL, SJ POCT-GLUCOSE [id number] 17:22:00 Test Item Value Reference Range Interpretation Comments POC-GLUCOSE METER 208 mg/dL 70-110 H : TESTED A T [facility] 6720 (BEAKER) (test code = [facility] Pick a Student [facility], 1538) 35919: Contract Engineer/Techni estefani ID = [id number] for OL MOS, SUREKHA TISSUE [id number] 16:50:00Surgical Pathology Report Case: [id number] Authorizing Provider: Star Cloud DPM Collected: 11/08/2019 03:53 PM Ordering Location: [facility] Received: 11/09/2019 09:35 AM PERIOPERATIVE SERVICES Pathologist: Vandana Beverly MD Specimens: A) - Metatarsal, Right, 1ST B) - Metatarsal, Right, 5TH C) - Tendon/Tendon Sheath, FROM RIGHT FOOT D) - Skin, Other, RIGHT FOOT ESCHAR A. RIGHT FOOT, IST METATARSAL, EXCISION: - ACUTE OSTEOMYELITISB. RIGHT FOOT , 5TH METATARSAL, EXCISION: - ACUTE OSTEOMYELITISC. RIGHT FOOT, TENDON/ TENDON SHEATH, EXCISION: - TENDINOUS TISSUE WITH NECROSIS AND DYSTROPHIC CALCIFICATIONS - VESSEL WITH CALCIFICATION - NEGATIVE FOR MALIGNANCY D. SKIN, RIGHT FOOT ESCHAR, EXCISION: - GANGRENOUS NECROSIS - NEGATIVE FOR MALIGNANCY Signing Pathologist Direct Phone Line: [phone] signed by Vandana Beverly MD on 11/14/2019 at 4:50 [id number] X 4 ; [id number] X 2Non-healing surgical wound, initial encounter A. Metatarsal, right, firstB. Metatarsal, right, fifthC.Tendon, foot, rightD. Skin, foot, rightA. Received fresh labeled with the patient's name, medical record number and "metatarsal, right, first" is a transected bone measuring 2.2 cm in length and ranging 1.8-2.5 cm in diameter. One end is baca- gardner and dusky. The opposite end is focally hemorrhagic.The specimen is sectioned to reveal heterogeneous, gardner-pink to red trabecular bone with no gross lesions. Teller Manager sections are submitted.Section code:A1: Smaller gardner- baca bone margin, en face, following decalcificationA2: Opposite bone margin, en face, following decalcificationB. Received fresh labeled with the patient's name, medical record number and "metatarsal, right" is a metatarsal head measuring 4.3 cm in length and ranging 1.2-2.2 cm in diameter. There is a minimal amount of attached hemorrhagic soft tissue. The articular surface is gardner-white and smooth. The specimen is sectionedto reveal heterogeneous gardner-red trabecular bone with no gross lesions. Teller Manager sections are s ubmitted.Section code:B1: Bone margin, en face, following decalcificationB2 medical center representative of hemorrhagic soft tissue and bone, following decalcificationC. Received fresh labeled with the patient's name, medical record number and "tendon/tendon sheath" is an 8.1 x 1.3 x 0.3 cm gardner-baca, congested tendon. The specimen is serially sectioned and no gross lesions are identified. Teller Manager sectionsare submitted in C1.D. Received fresh labeled with the patient's name, medical record number and "right foot eschar" is 11.5 x 11.5 x 0.8 cm aggregate of 4 irregular portions of black-baca, hyperkeratotic skin. Specimen is serially sectioned to reveal hard, hemorrhagic tissue. Teller Manager sections are submitted in D1-D2.BREANNA Nava, PA ([facility])PERFORMEDPOCT-GLUCOSE [id number] 12:59:00 Test Item Value Reference Range Interpretation Comments POC-GLUCOSE METER 257 mg/dL 70-110 H : TESTED A T [facility] 6720 (BEAKER) (test code = [facility], 1538) 35915: Contract Engineer/Techni estefani ID = [id number] for OL MOS, SUREKHA POCT-GLUCOSE [id number] 08:50:00 Test Item Value Reference Range Interpretation Comments POC-GLUCOSE METER 183 mg/dL 70-110 H : TESTED A T [facility] 6720 (BEAKER) (test code = [facility], 1538) 26771: Contract Engineer/Techni estefani ID = [id number] for OL MOS, SUREKHA BASIC METABOLIC [id number] 06:49:00 Test Item Value Reference Range Interpretation Comments SODIUM (BEAKER) 134 meq/L 136-145 L (test code = 381) POTASSIUM (BEAKER) 4.2 meq/L 3.5-5.1 (test code = 379) CHLORIDE (BEAKER) 97 meq/L 98-107 L (test code = 382) CO2 (BEAKER) (test 27 meq/L 22-29 code = 355) BLOOD UREA NITROGEN 31 mg/dL 7-21 H (BEAKER) (test code = 354) CREATININE (BEAKER) 7.37 mg/dL 0.57-1.25 H (test code = 358) GLUCOSE RANDOM 184 mg/dL 70-105 H (BEAKER) (test code = 652) CALCIUM (BEAKER) 7.8 mg/dL 8.4-10.2 L (test code = 697) EGFR (BEAKER) (test 8 mL/min/1.73 ESTIMAT ED GFR IS code = 1092) sq m NOT ACCURATE CREATININE CLEARANCE IN PREDICTING GLOMERULAR FILTRATION RATE . ESTIMATED GFR I S NOT APPLICABLE FOR DIALYSIS PATIEN TS. Contract Engineer ID - DANITZA [id number] 06:48:00 Test Item Value Reference Range Interpretation Comments MAGNESIUM (BEAKER) (test code = 2.1 mg/dL 1.6-2.6 627) Contract Engineer ID - PIZAYRA LCBC W/PLT COUNT & AUTO [id number] 05:42:00 Test Item Value Reference Range Interpretation Comments WHITE BLOOD CELL COUNT (BEAKER) 11.3 K/ L 3.5-10.5 H (test code = 775) RED BLOOD CELL COUNT (BEAKER) 2.75 M/ L 4.63-6.08 L (test code = 761) HEMOGLOBIN (BEAKER) (test code = 7.4 GM/DL 13.7-17.5 L 410) HEMATOCRIT (BEAKER) (test code = 24.6 % 40.1-51.0 L 411) MEAN CORPUSCULAR VOLUME (BEAKER) 89.5 fL 79.0-92.2 (test code = 753) MEAN CORPUSCULAR HEMOGLOBIN 26.9 pg 25.7-32.2 (BEAKER) (test code = 751) MEAN CORPUSCULAR HEMOGLOBIN CONC 30.1 GM/DL 32.3-36.5 L (BEAKER) (test code = 752) RED CELL DISTRIBUTION WIDTH 16.8 % 11.6-14.4 H (BEAKER) (test code = 412) PLATELET COUNT (BEAKER) (test 397 K/CU MM 150-450 code = 756) MEAN PLATELET VOLUME (BEAKER) 9.8 fL 9.4-12.4 (test code = 754) NUCLEATED RED BLOOD CELLS 0 /100 WBC 0-0 (BEAKER) (test code = 413) NEUTROPHILS RELATIVE PERCENT 70 % (BEAKER) (test code = 429) LYMPHOCYTES RELATIVE PERCENT 13 % (BEAKER) (test code = 430) MONOCYTES RELATIVE PERCENT 9 % (BEAKER) (test code = 431) EOSINOPHILS RELATIVE PERCENT 5 % (BEAKER) (test code = 432) BASOPHILS RELATIVE PERCENT 1 % (BEAKER) (test code = 437) NEUTROPHILS ABSOLUTE COUNT 7.91 K/ L 1.78-5.38 H (BEAKER) (test code = 670) LYMPHOCYTES ABSOLUTE COUNT 1.50 K/ L 1.32-3.57 (BEAKER) (test code = 414) MONOCYTES ABSOLUTE COUNT (BEAKER) 1.03 K/ L 0.30-0.82 H (test code = 415) EOSINOPHILS ABSOLUTE COUNT 0.53 K/ L 0.04-0.54 (BEAKER) (test code = 416) BASOPHILS ABSOLUTE COUNT (BEAKER) 0.09 K/ L 0.01-0.08 H (test code = 417) IMMATURE GRANULOCYTES-RELATIVE 2 % 0-1 H PERCENT (BEAKER) (test code = 2801) Calcium, [id number] 05:04:00 Test Item Value Reference Range Interpretation Comments Calcium, Ion (test code = 1994-3) 1.02 mmol/L 1.12-1.27 L pH, Blood (test code = 05090-9) 7.42 Lab Interpretation (test code = Abnormal 11212-1) [id number] 05:04:00 Test Item Value Reference Range Interpretation Comments CALCIUM IONIZED (BEAKER) (test 1.02 mmol/L 1.12-1.27 L code = 698) PH, BLOOD (BEAKER) (test code = 7.42 1810) POCT-GLUCOSE [id number] 21:20:00 Test Item Value Reference Range Interpretation Comments POC-GLUCOSE METER 334 mg/dL 70-110 H : TESTED A T [facility] 6720 (BEAKER) (test code = [facility] Pick a Student [facility], 1538) [address]: Contract Engineer/Techni estefani ID = [id number] for ESTEBAN GARZON JAD POCT-GLUCOSE [id number] 17:37:00 Test Item Value Reference Range Interpretation Comments POC-GLUCOSE METER 256 mg/dL 70-110 H : TESTED A T [facility] 6720 (BEAKER) (test code = [facility] Pick a Student [facility], 1538) [address]: Contract Engineer/Techni estefani ID = [id number] for JACOB LYLES SARS-COV2/RT-PCR ([facility])2019-11-13 13:07:00 Test Item Value Reference Range Interpretation Comments SARS-COV2/RT-PCR (test Negative Not Detected, Negative, code = 7998334) See external report for linked test SARS-COV-2 PERFORMING LAB [facility] (test code = 8602372) Negative result for this test determines that SARS-CoV-2 RNA was not present in the specimen above the Limit of Detection (LOD). However, Negative results do not preclude SARS-CoV-2 infection and should not be used as the sole basis for treatment or patient management decisions. Negative results mustbe combined with clinical observations, patient history, and epidemiological information. A false negative result may occur if a specimen is improperly collected, transported or handled. A false negative result should be considered if patient's recent exposures or clinical presentation indicate that COVID-19 (SARS-CoV-2) is likely and diagnostic tests for other causes of illness are negative. Re-testing should be considered in cases of suspected false negatives.The limit of detection for this assay is 800 copies/mL.This SARS CoV-2 test is a real-time RT-PCR test intended for the qualitative detection of nucleic acid from SARS-CoV-2 in a nasopharyngeal swab specimen collected from individuals susp ected of COVID-19 by their healthcare provider.This test has not been Food and Drug Administration (FDA) cleared or approved. This is a modified version of an approved Emergency Use Authorization (EUA) and is in the process of review by the FDA. Once authorized by the FDA, the issued EUA will be effective until the declaration that circumstances exist justifying the authorization of the emergency use of in vitro diagnostic tests for detection and/or diagnosis of COVID-19 is terminated under Section 564(b)(2) of the Act or the EUA is revoked under Section 564(g) of the Act.Fact Sheet for Healthcare Providers:https://www.wufoo.Veebow/sites/default/files/product/documents/Fact_Shee e_IK_Iwryegljc_Ipjt_LEYX-DoP-8.pdfFact Sheet for Healthcare Patients:https://www.wufoo.com/sites/default/files/product/ documents/Soni_Zpdwv_Rkanlsuh_Ilyd_QOTY-OoE-4.pdfPerforming Laboratory:[facility], [place] [address]KKAONPRZWWLQ [id number] 12:25:00Justin Faith RN 11/13/2019 12:43 PMProcedure tolerated well. Vital signs stable.HD duration 3.5hours UF 3 L via left upper arm AV Fistula. Lab Results Component Value Date WBC 10.6 (H) 2019 HGB 7.3 (L) 2019 HCT 24.1 (L) 2019 MCV 88.3 2019 PLT 358 2019 Lab Results Component Value Date GLUCOSE 169 (H) 11/13/2019 CALCIUM 7.8 (L) 11/13/2019 NA 132 (L) 11/13/2019 K 4.2 11/13/2019 CO2 25 11/13/2019 CL 95 (L) 11/13/2019 BUN 49 (H) 11/13/2019 CREATININE 10.52 (H) 11/13/2019 No components found for: HEPSAG Vitals: 11/13/19 1145 BP: 130/76 Pulse: 75 Resp: 20 Temp: SpO2: 97%[facility] [id number] 10:27:53Chadwick Lin MD 11/13/2019 10:28 AM11/13/2019I have personally seen and examined Dayton Grijalva on dialysisIndication : ESRDPrescription: F160, 3-4 hrs, 2.0K, 2.5 Ca, UF 2L as toleratedAccess: AV fistulaReason for exam: BP fluctuation & adjust dry weightTolerating dialysis ok Chadwick Lin MD Office [phone] [facility] [id number] 06:03:00 Test Item Value Reference Range Interpretation Comments SODIUM (BEAKER) 132 meq/L 136-145 L (test code = 381) POTASSIUM (BEAKER) 4.2 meq/L 3.5-5.1 (test code = 379) CHLORIDE (BEAKER) 95 meq/L 98-107 L (test code = 382) CO2 (BEAKER) (test 25 meq/L 22-29 code = 355) BLOOD UREA NITROGEN 49 mg/dL 7-21 H (BEAKER) (test code = 354) CREATININE (BEAKER) 10.52 mg/dL 0.57-1.25 H (test code = 358) GLUCOSE RANDOM 169 mg/dL 70-105 H (BEAKER) (test code = 652) CALCIUM (BEAKER) 7.8 mg/dL 8.4-10.2 L (test code = 697) EGFR (BEAKER) (test 5 mL/min/1.73 ESTIMAT ED GFR IS code = 1092) sq m NOT ACCURATE CREATININE CLEARANCE IN PREDICTING GLOMERULAR FILTRATION RATE . ESTIMATED GFR I S NOT APPLICABLE FOR DIALYSIS PATIEN TS. Contract Engineer ID - PIAYA LPOCT-GLUCOSE [id number] 21:20:00 Test Item Value Reference Range Interpretation Comments POC-GLUCOSE METER 234 mg/dL 70-110 H : TESTED A T [facility] 6720 (BEAKER) (test code = [facility], 1538) [address]: Contract Engineer/Techni estefani ID = [id number] for SA CRYSTAL HIGGINS POCT-GLUCOSE [id number] 17:07:00 Test Item Value Reference Range Interpretation Comments POC-GLUCOSE METER 233 mg/dL 70-110 H : TESTED A T [facility] 6720 (BEAKER) (test code = [facility] Pick a Student [facility], 1538) [address]: Contract Engineer/Techni estefani ID = [id number] for FA GUNNER CRAWFORD POCT-GLUCOSE [id number] 12:06:00 Test Item Value Reference Range Interpretation Comments POC-GLUCOSE METER 248 mg/dL 70-110 H : TESTED A T [facility] 6720 (BEAKER) (test code = [facility] Pick a Student [facility], 1538) [address]: Contract Engineer/Techni estefani ID = [id number] for FA TY GUNNER BASIC METABOLIC [id number] 11:18:00 Test Item Value Reference Range Interpretation Comments SODIUM (BEAKER) 133 meq/L 136-145 L (test code = 381) POTASSIUM (BEAKER) 3.8 meq/L 3.5-5.1 (test code = 379) CHLORIDE (BEAKER) 96 meq/L 98-107 L (test code = 382) CO2 (BEAKER) (test 23 meq/L 22-29 code = 355) BLOOD UREA NITROGEN 41 mg/dL 7-21 H (BEAKER) (test code = 354) CREATININE (BEAKER) 8.77 mg/dL 0.57-1.25 H (test code = 358) GLUCOSE RANDOM 138 mg/dL 70-105 H (BEAKER) (test code = 652) CALCIUM (BEAKER) 7.5 mg/dL 8.4-10.2 L (test code = 697) EGFR (BEAKER) (test 6 mL/min/1.73 ESTIMAT ED GFR IS code = 1092) sq m NOT ACCURATE CREATININE CLEARANCE IN PREDICTING GLOMERULAR FILTRATION RATE . ESTIMATED GFR I S NOT APPLICABLE FOR DIALYSIS PATIEN TS. Contract Engineer ID - JAQUELINE MOperator ID - JEREMY [id number] 11:15:00 Test Item Value Reference Range Interpretation Comments MAGNESIUM (BEAKER) (test code = 2.0 mg/dL 1.6-2.6 627) Contract Engineer ID - JEREMY MPOCT-GLUCOSE [id number] 07:56:00 Test Item Value Reference Range Interpretation Comments POC-GLUCOSE METER 137 mg/dL 70-110 H : TESTED A T [facility] 6720 (BEAKER) (test [facility] = [facility], 1538) [address]: Contract Engineer/Techni estefani ID = [id number] for GUNNER PANDYA CALCIUM, [id number] 07:50:00 Test Item Value Reference Range Interpretation Comments CALCIUM IONIZED (BEAKER) (test 0.98 mmol/L 1.12-1.27 L code = 698) PH, BLOOD (BEAKER) (test code = 7.42 1810) CBC W/PLT COUNT & AUTO [id number] 06:03:00 Test Item Value Reference Range Interpretation Comments WHITE BLOOD CELL COUNT (BEAKER) 10.6 K/ L 3.5-10.5 H (test code = 775) RED BLOOD CELL COUNT (BEAKER) 2.73 M/ L 4.63-6.08 L (test code = 761) HEMOGLOBIN (BEAKER) (test code = 7.3 GM/DL 13.7-17.5 L 410) HEMATOCRIT (BEAKER) (test code = 24.1 % 40.1-51.0 L 411) MEAN CORPUSCULAR VOLUME (BEAKER) 88.3 fL 79.0-92.2 (test code = 753) MEAN CORPUSCULAR HEMOGLOBIN 26.7 pg 25.7-32.2 (BEAKER) (test code = 751) MEAN CORPUSCULAR HEMOGLOBIN CONC 30.3 GM/DL 32.3-36.5 L (BEAKER) (test code = 752) RED CELL DISTRIBUTION WIDTH 16.7 % 11.6-14.4 H (BEAKER) (test code = 412) PLATELET COUNT (BEAKER) (test 358 K/CU MM 150-450 code = 756) MEAN PLATELET VOLUME (BEAKER) 9.4 fL 9.4-12.4 (test code = 754) NUCLEATED RED BLOOD CELLS 0 /100 WBC 0-0 (BEAKER) (test code = 413) NEUTROPHILS RELATIVE PERCENT 70 % (BEAKER) (test code = 429) LYMPHOCYTES RELATIVE PERCENT 12 % (BEAKER) (test code = 430) MONOCYTES RELATIVE PERCENT 9 % (BEAKER) (test code = 431) EOSINOPHILS RELATIVE PERCENT 7 % (BEAKER) (test code = 432) BASOPHILS RELATIVE PERCENT 1 % (BEAKER) (test code = 437) NEUTROPHILS ABSOLUTE COUNT 7.39 K/ L 1.78-5.38 H (BEAKER) (test code = 670) LYMPHOCYTES ABSOLUTE COUNT 1.32 K/ L 1.32-3.57 (BEAKER) (test code = 414) MONOCYTES ABSOLUTE COUNT (BEAKER) 0.90 K/ L 0.30-0.82 H (test code = 415) EOSINOPHILS ABSOLUTE COUNT 0.72 K/ L 0.04-0.54 H (BEAKER) (test code = 416) BASOPHILS ABSOLUTE COUNT (BEAKER) 0.06 K/ L 0.01-0.08 (test code = 417) IMMATURE GRANULOCYTES-RELATIVE 2 % 0-1 H PERCENT (BEAKER) (test code = 2801) POCT-GLUCOSE [id number] 21:00:00 Test Item Value Reference Range Interpretation Comments POC-GLUCOSE METER 233 mg/dL 70-110 H : TESTED Vikas Velásquez [facility] 6720 (BEAKER) (test code = [facility] SONG [place], 1538) [address]: Contract Engineer/Techni estefani ID = [id number] for SJ HERBERT POCT-GLUCOSE [id number] 16:59:00 Test Item Value Reference Range Interpretation Comments POC-GLUCOSE METER 237 mg/dL 70-110 H : TESTED Vikas Velásquez [facility] 6720 (BEAGA) (test code = DASIA Garcia [facility], 1538) [address]: Contract Engineer/Techni estefani ID = [id number] for GUNNER PANDYA CREATINE KINASE (CK)2019-11-11 12:29:00 Test Item Value Reference Range Interpretation Comments CREATINE KINASE TOTAL (BEAKER) (test 32 U/L 29-200 code = 380) Contract Engineer ID - ANTONY FPOCT-GLUCOSE [id number] 12:04:00 Test Item Value Reference Range Interpretation Comments POC-GLUCOSE METER 237 mg/dL 70-110 H : TESTED Vikas Velásquez [facility] 6720 (NOE) (test code = DASIA Garica [facility], 1538) [address]: Contract Engineer/Techni estefani ID = [id number] for GUNNER PANDYA SURGICALLY OBTAINED CULTURE + GRAM [id number] 10:13:00 Test Item Value Reference Range Interpretation Comments CULTURE (BEAKER) ENTEROBACTER A 2+ Enteroba cter (test code = 1095) CLOACAE COMPLEX cloaca e complex Amikacin (test code = S 1) Aztreonam (test code S = 32) Cefepime (test code = S 51) Cefoxitin (test code R = 68) Ceftazidime (test S code = 27) Ceftriaxone (test S code = 52) Ertapenem (test code S = 38) Gentamicin (test code S = 18) Levofloxacin (test R code = 22) Meropenem (test code S = 34) Nitrofurantoin (test R code = 23) Piperacillin + S Tazobactam (test code = 29) Tetracycline (test R code = 2) Tobramycin (test code S = 25) Trimethoprim + S Sulfamethoxazole (test code = 47) CULTURE (BEAKER) VANCOMYCIN A 2+ Vancomyc in (test code = 1095) RESISTANT resistant ENTEROCOCCUS Enterococcus FAECIUM faecium Ampicillin (test code R = 26) Linezolid (test code S = 40) Vancomycin (test code R = 13) Daptomycin (test code Susceptible >4-4 = 59) , Dose Dependent Susceptible <=4 or >4 , Re GRAM STAIN RESULT 1+ WBCs (BEAKER) (test code = 1123) GRAM STAIN RESULT No organisms seen (BEAKER) (test code = 020520) BASIC METABOLIC [id number] 08:46:00 Test Item Value Reference Range Interpretation Comments SODIUM (BEAKER) 134 meq/L 136-145 L (test code = 381) POTASSIUM (BEAKER) 4.2 meq/L 3.5-5.1 (test code = 379) CHLORIDE (BEAKER) 98 meq/L 98-107 (test code = 382) CO2 (BEAKER) (test 26 meq/L 22-29 code = 355) BLOOD UREA NITROGEN 31 mg/dL 7-21 H (BEAKER) (test code = 354) CREATININE (BEAKER) 6.39 mg/dL 0.57-1.25 H (test code = 358) GLUCOSE RANDOM 220 mg/dL 70-105 H (BEAKER) (test code = 652) CALCIUM (BEAKER) 7.9 mg/dL 8.4-10.2 L (test code = 697) EGFR (BEAKER) (test 9 mL/min/1.73 ESTIMAT ED GFR IS code = 1092) sq m NOT ACCURATE CREATININE CLEARANCE IN PREDICTING GLOMERULAR FILTRATION RATE . ESTIMATED GFR I S NOT APPLICABLE FOR DIALYSIS PATIEN TS. Contract Engineer ID - ANTONY [id number] 08:33:00 Test Item Value Reference Range Interpretation Comments MAGNESIUM (BEAKER) (test code = 2.1 mg/dL 1.6-2.6 627) Contract Engineer ID - ANTONY FPOCT-GLUCOSE [id number] 08:11:00 Test Item Value Reference Range Interpretation Comments POC-GLUCOSE METER 177 mg/dL 70-110 H : TESTED A T [facility] 6720 (BEAKER) (test code = [facility] [place], 1538) [address]: Contract Engineer/Techni estefani ID = [id number] for GUNNER PANDYA CALCIUM, [id number] 07:08:00 Test Item Value Reference Range Interpretation Comments CALCIUM IONIZED (BEAKER) (test 1.01 mmol/L 1.12-1.27 L code = 698) PH, BLOOD (BEAKER) (test code = 7.46 1810) CBC W/PLT COUNT & AUTO [id number] 06:12:00 Test Item Value Reference Range Interpretation Comments WHITE BLOOD CELL COUNT (BEAKER) 12.0 K/ L 3.5-10.5 H (test code = 775) RED BLOOD CELL COUNT (BEAKER) 2.83 M/ L 4.63-6.08 L (test code = 761) HEMOGLOBIN (BEAKER) (test code = 7.6 GM/DL 13.7-17.5 L 410) HEMATOCRIT (BEAKER) (test code = 24.8 % 40.1-51.0 L 411) MEAN CORPUSCULAR VOLUME (BEAKER) 87.6 fL 79.0-92.2 (test code = 753) MEAN CORPUSCULAR HEMOGLOBIN 26.9 pg 25.7-32.2 (BEAKER) (test code = 751) MEAN CORPUSCULAR HEMOGLOBIN CONC 30.6 GM/DL 32.3-36.5 L (BEAKER) (test code = 752) RED CELL DISTRIBUTION WIDTH 16.9 % 11.6-14.4 H (BEAKER) (test code = 412) PLATELET COUNT (BEAKER) (test 363 K/CU MM 150-450 code = 756) MEAN PLATELET VOLUME (BEAKER) 10.1 fL 9.4-12.4 (test code = 754) NUCLEATED RED BLOOD CELLS 0 /100 WBC 0-0 (BEAKER) (test code = 413) NEUTROPHILS RELATIVE PERCENT 74 % (BEAKER) (test code = 429) LYMPHOCYTES RELATIVE PERCENT 10 % (BEAKER) (test code = 430) MONOCYTES RELATIVE PERCENT 8 % (BEAKER) (test code = 431) EOSINOPHILS RELATIVE PERCENT 5 % (BEAKER) (test code = 432) BASOPHILS RELATIVE PERCENT 1 % (BEAKER) (test code = 437) NEUTROPHILS ABSOLUTE COUNT 8.88 K/ L 1.78-5.38 H (BEAKER) (test code = 670) LYMPHOCYTES ABSOLUTE COUNT 1.23 K/ L 1.32-3.57 L (BEAKER) (test code = 414) MONOCYTES ABSOLUTE COUNT (BEAKER) 0.91 K/ L 0.30-0.82 H (test code = 415) EOSINOPHILS ABSOLUTE COUNT 0.65 K/ L 0.04-0.54 H (BEAKER) (test code = 416) BASOPHILS ABSOLUTE COUNT (BEAKER) 0.08 K/ L 0.01-0.08 (test code = 417) IMMATURE GRANULOCYTES-RELATIVE 2 % 0-1 H PERCENT (BEAKER) (test code = 7772) BLOOD [id number] 06:00:00 Test Item Value Reference Range Interpretation Comments CULTURE (BEAKER) (test No growth in 5 days code = 1095) BLOOD [id number] 00:00:00 Test Item Value Reference Range Interpretation Comments CULTURE (BEAKER) (test No growth in 5 days code = 1095) POCT-GLUCOSE [id number] 20:39:00 Test Item Value Reference Range Interpretation Comments POC-GLUCOSE METER 187 mg/dL 70-110 H : TESTED A T [facility] 6720 (BEAKER) (test code = [facility], 1538) [address]: Contract Engineer/Techni estefani ID = [id number] for SJ HERBERT POCT-GLUCOSE [id number] 12:11:00 Test Item Value Reference Range Interpretation Comments POC-GLUCOSE METER 239 mg/dL 70-110 H : TESTED A T [facility] 6720 (BEAKER) (test code = [facility], 1538) 24[address]: Contract Engineer/Techni estefani ID = [id number] for JACOB LYLES BASIC METABOLIC [id number] 09:32:00 Test Item Value Reference Range Interpretation Comments SODIUM (BEAKER) 131 meq/L 136-145 L (test code = 381) POTASSIUM (BEAKER) 4.5 meq/L 3.5-5.1 (test code = 379) CHLORIDE (BEAKER) 94 meq/L 98-107 L (test code = 382) CO2 (BEAKER) (test 25 meq/L 22-29 code = 355) BLOOD UREA NITROGEN 56 mg/dL 7-21 H (BEAKER) (test code = 354) CREATININE (BEAKER) 9.64 mg/dL 0.57-1.25 H (test code = 358) GLUCOSE RANDOM 208 mg/dL 70-105 H (BEAKER) (test code = 652) CALCIUM (BEAKER) 8.2 mg/dL 8.4-10.2 L (test code = 697) EGFR (BEAKER) (test 6 mL/min/1.73 ESTIMAT ED GFR IS code = 1092) sq m NOT ACCURATE CREATININE CLEARANCE IN PREDICTING GLOMERULAR FILTRATION RATE . ESTIMATED GFR I S NOT APPLICABLE FOR DIALYSIS PATIGABRIELA TS. Contract Engineer ID - GARYAYA [id number] 09:15:00 Test Item Value Reference Range Interpretation Comments MAGNESIUM (BEAKER) (test code = 2.3 mg/dL 1.6-2.6 627) Contract Engineer ID - PIAYA LPOCT-GLUCOSE [id number] 08:14:00 Test Item Value Reference Range Interpretation Comments POC-GLUCOSE METER 173 mg/dL 70-110 H : TESTED A T [facility] 6720 (BEAKER) (test code = [facility] [place], 1538) [address]: Contract Engineer/Techni estefani ID = [id number] for JACOB LYLES CALCIUM, [id number] 07:23:00 Test Item Value Reference Range Interpretation Comments CALCIUM IONIZED (BEAKER) (test 1.02 mmol/L 1.12-1.27 L code = 698) PH, BLOOD (BEAKER) (test code = 7.39 1810) CBC W/PLT COUNT & AUTO [id number] 06:22:00 Test Item Value Reference Range Interpretation Comments WHITE BLOOD CELL COUNT (BEAKER) 12.3 K/ L 3.5-10.5 H (test code = 775) RED BLOOD CELL COUNT (BEAKER) 2.82 M/ L 4.63-6.08 L (test code = 761) HEMOGLOBIN (BEAKER) (test code = 7.7 GM/DL 13.7-17.5 L 410) HEMATOCRIT (BEAKER) (test code = 24.6 % 40.1-51.0 L 411) MEAN CORPUSCULAR VOLUME (BEAKER) 87.2 fL 79.0-92.2 (test code = 753) MEAN CORPUSCULAR HEMOGLOBIN 27.3 pg 25.7-32.2 (BEAKER) (test code = 751) MEAN CORPUSCULAR HEMOGLOBIN CONC 31.3 GM/DL 32.3-36.5 L (BEAKER) (test code = 752) RED CELL DISTRIBUTION WIDTH 16.9 % 11.6-14.4 H (BEAKER) (test code = 412) PLATELET COUNT (BEAKER) (test 325 K/CU MM 150-450 code = 756) MEAN PLATELET VOLUME (BEAKER) 10.2 fL 9.4-12.4 (test code = 754) NUCLEATED RED BLOOD CELLS 0 /100 WBC 0-0 (BEAKER) (test code = 413) NEUTROPHILS RELATIVE PERCENT 76 % (BEAKER) (test code = 429) LYMPHOCYTES RELATIVE PERCENT 10 % (BEAKER) (test code = 430) MONOCYTES RELATIVE PERCENT 6 % (BEAKER) (test code = 431) EOSINOPHILS RELATIVE PERCENT 5 % (BEAKER) (test code = 432) BASOPHILS RELATIVE PERCENT 1 % (BEAKER) (test code = 437) NEUTROPHILS ABSOLUTE COUNT 9.36 K/ L 1.78-5.38 H (BEAKER) (test code = 670) LYMPHOCYTES ABSOLUTE COUNT 1.26 K/ L 1.32-3.57 L (BEAKER) (test code = 414) MONOCYTES ABSOLUTE COUNT (BEAKER) 0.79 K/ L 0.30-0.82 (test code = 415) EOSINOPHILS ABSOLUTE COUNT 0.65 K/ L 0.04-0.54 H (BEAKER) (test code = 416) BASOPHILS ABSOLUTE COUNT (BEAKER) 0.08 K/ L 0.01-0.08 (test code = 417) IMMATURE GRANULOCYTES-RELATIVE 1 % 0-1 PERCENT (BEAKER) (test code = 2801) VANCOMYCIN LEVEL, [id number] 06:07:00 Test Item Value Reference Range Interpretation Comments VANCOMYCIN RANDOM (BEAKER) (test 29.4 ug/mL code = 523) Reference Range: No NormalsOperator ID - PIAYA LPOCT-GLUCOSE [id number] 21:26:00 Test Item Value Reference Range Interpretation Comments POC-GLUCOSE METER 250 mg/dL 70-110 H : TESTED A T [facility] 6720 (BEAKER) (test code = [facility], 153) 89[address]: Contract Engineer/Techni estefani ID = [id number] for UL LATTIL, SJ POCT-GLUCOSE [id number] 17:14:00 Test Item Value Reference Range Interpretation Comments POC-GLUCOSE METER 283 mg/dL 70-110 H : TESTED A T [facility] 6720 (BEAKER) (test code = [facility], 153) 08324: Contract Engineer/Techni estefani ID = [id number] for GUNNER PANDYA POCT-GLUCOSE [id number] 12:13:00 Test Item Value Reference Range Interpretation Comments POC-GLUCOSE METER 233 mg/dL 70-110 H : TESTED A T [facility] 6720 (BEAKER) (test code = [facility] [place], 1538) [address]: Contract Engineer/Techni estefani ID = [id number] for GUNNER PANDYA SPIN/CONCENTRATION [id number] 10:35:00 Test Item Value Reference Range Interpretation Comments CONCENTRATION CHARGED (BEAKER) (test Done code = 2657) POCT-GLUCOSE [id number] 08:01:00 Test Item Value Reference Range Interpretation Comments POC-GLUCOSE METER 195 mg/dL 70-110 H : TESTED A T [facility] 6720 (BEAKER) (test code = DASIA Garcia [facility], 1538) 91992: Contract Engineer/Techni estefani ID = [id number] for GUNNER PANDYA BASIC METABOLIC [id number] 06:24:00 Test Item Value Reference Range Interpretation Comments SODIUM (BEAKER) 137 meq/L 136-145 (test code = 381) POTASSIUM (BEAKER) 4.7 meq/L 3.5-5.1 (test code = 379) CHLORIDE (BEAKER) 96 meq/L 98-107 L (test code = 382) CO2 (BEAKER) (test 26 meq/L 22-29 code = 355) BLOOD UREA NITROGEN 46 mg/dL 7-21 H (BEAKER) (test code = 354) CREATININE (BEAKER) 7.63 mg/dL 0.57-1.25 H (test code = 358) GLUCOSE RANDOM 238 mg/dL 70-105 H (BEAKER) (test code = 652) CALCIUM (BEAKER) 7.8 mg/dL 8.4-10.2 L (test code = 697) EGFR (BEAKER) (test 7 mL/min/1.73 ESTIMAT ED GFR IS code = 1092) sq m NOT ACCURATE CREATININE CLEARANCE IN PREDICTING GLOMERULAR FILTRATION RATE . ESTIMATED GFR I S NOT APPLICABLE FOR DIALYSIS PATIEN TS. Contract Engineer ID - [id number] 06:07:00 Test Item Value Reference Range Interpretation Comments PHOSPHORUS (BEAKER) (test code = 5.2 mg/dL 2.3-4.7 H 604) Contract Engineer ID - [id number] 06:07:00 Test Item Value Reference Range Interpretation Comments MAGNESIUM (BEAKER) (test code = 2.1 mg/dL 1.6-2.6 627) Contract Engineer ID - EDASICBC W/PLT COUNT & AUTO [id number] 06:02:00 Test Item Value Reference Range Interpretation Comments WHITE BLOOD CELL COUNT (BEAKER) 12.0 K/ L 3.5-10.5 H (test code = 775) RED BLOOD CELL COUNT (BEAKER) 2.88 M/ L 4.63-6.08 L (test code = 761) HEMOGLOBIN (BEAKER) (test code = 7.6 GM/DL 13.7-17.5 L 410) HEMATOCRIT (BEAKER) (test code = 25.3 % 40.1-51.0 L 411) MEAN CORPUSCULAR VOLUME (BEAKER) 87.8 fL 79.0-92.2 (test code = 753) MEAN CORPUSCULAR HEMOGLOBIN 26.4 pg 25.7-32.2 (BEAKER) (test code = 751) MEAN CORPUSCULAR HEMOGLOBIN CONC 30.0 GM/DL 32.3-36.5 L (BEAKER) (test code = 752) RED CELL DISTRIBUTION WIDTH 17.1 % 11.6-14.4 H (BEAKER) (test code = 412) PLATELET COUNT (BEAKER) (test 276 K/CU MM 150-450 code = 756) MEAN PLATELET VOLUME (BEAKER) 10.5 fL 9.4-12.4 (test code = 754) NUCLEATED [...] (test code = 437) NEUTROPHILS ABSOLUTE COUNT 9.35 K/ L 1.78-5.38 H (BEAKER) (test code = 670) LYMPHOCYTES ABSOLUTE COUNT 1.05 K/ L 1.32-3.57 L (BEAKER) (test code = 414) MONOCYTES ABSOLUTE COUNT (BEAKER) 1.17 K/ L 0.30-0.82 H (test code = 415) EOSINOPHILS ABSOLUTE COUNT 0.26 K/ L 0.04-0.54 (BEAKER) (test code = 416) BASOPHILS ABSOLUTE COUNT (BEAKER) 0.07 K/ L 0.01-0.08 (test code = 417) IMMATURE GRANULOCYTES-RELATIVE 1 % 0-1 PERCENT (BEAKER) (test code = 2801) CALCIUM, [id number] 05:45:00 Test Item Value Reference Range Interpretation Comments CALCIUM IONIZED (BEAKER) (test 0.97 mmol/L 1.12-1.27 L code = 698) PH, BLOOD (BEAKER) (test code = 7.43 1810) POCT-GLUCOSE [id number] 21:43:00 Test Item Value Reference Range Interpretation Comments POC-GLUCOSE METER 343 mg/dL 70-110 H : TESTED A T [facility] 6720 (BEAKER) (test code = DASIA Garcia [place], 1538) [id number]: Contract Engineer/Techni estefani ID = [id number] for [place] KEAGAN SHETTYI RAD, FOOT, 2 VIEWS, [id number] 21:02:00Reason for exam:->post op revision fo TMA, 5th ray resected, and 1st ray revised.Should this be performed at the bedside?->YesFINAL REPORT TECHNIQUE: RAD, FOOT, 2 VIEWS, RIGHT INDICATION: post op revision fo TMA, 5th ray resected, and 1st ray revised. COMPARISON: 11/06/2019. FINDINGS:Postsurgical changes from prior transmetatarsal amputation of the foot. Resection of the fifth ray and extension of the first metatarsal amputation. There are numerous overlying skin reggie. There are small calcaneal spurs. There are diffuse vascular calcifications. IMPRESSION:Interval revision of transmetatarsal amputation of the right foot.. Signed: Francisco Early MDReport Verified Date/Time: 11/08/2019 21:02:38 Reading Location: [address] Transitional Reading Room XR foot 2 views right 2019-11-08 21:02:00Interface, External Ris In - 11/08/2019 9:04 PM CDTFINAL REPORT TECHNIQUE: RAD, FOOT, 2 VIEWS, RIGHT INDICATION: post op revision fo TMA, 5th ray resected, and 1st ray revised. COMPARISON: 11/06/2019. FINDINGS:Postsurgical changes from prior transmetatarsal amputation of the foot. Resection of the fifth ray and extension of the first metatarsal amputation. There are numerous overlying skin reggie. There are small calcaneal spurs. There are diffuse vascular calcifications. IMPRESSION:Interval revision of transmetatarsal amputation of the right foot.. Signed: Francisco Early MDReport Verified Date/Time: 11/08/2019 21:02:38 Reading Location: [facility] C013 Transitional Reading [facility] [id number] 17:48:00 Test Item Value Reference Range Interpretation Comments POC-GLUCOSE METER 135 mg/dL 70-110 H : TESTED A T [facility] 6720 (BEAKER) (test code = [facility], 1538) [id number]: Contract Engineer/Techni estefani ID = [id number] for JACOB LYLES POCT-GLUCOSE [id number] 16:57:00 Test Item Value Reference Range Interpretation Comments POC-GLUCOSE METER 130 mg/dL 70-110 H : TESTED A T [facility] 6720 (BEAKER) (test code = [facility], 1538) [id number]: Contract Engineer/Techni estefani ID = [id number] for ROSE GONZALES POCT-GLUCOSE [id number] 12:31:00 Test Item Value Reference Range Interpretation Comments POC-GLUCOSE METER 117 mg/dL 70-110 H : TESTED A T [facility] 6720 (BEAKER) (test code = [facility], 1538) 88018: Contract Engineer/Techni estefani ID = [id number] for Destini Contreras ANDREA's With PT and DP Doppler [id number] 07:32:27Ejection [facility] ECHO HEARTLAB MKCKESSON CPACSRight Impression1. The posterior tibial and dorsal is pedis arteries are patent withmonohpasic Doppler waveforms.2. The PT pressure is 66 mmHg with an ANDREA of 0.49 in the severe obstructionrange and the DP pressure is >255 mmHg with an ANDREA of non compressible.3. Digits could not be evaluated due to amputation.Left Impression1. The posterior tibial and dorsalis pedis arteries are patent withmonophasic Doppler waveforms.2. The PT pressure is >255 mmHg with an ANDREA of non compressible and the DPpressure is 130 mmHg with an ANDREA of 0.96, within normal range.3. Digits could not be evaluated due to amputation. Conclusions Summary Arterial pressuresand Doppler waveforms were performed bilaterally. Adequate Doppler waveforms were obtained. Doppler w aveforms were monophasic bilaterally. The right ANDREA's were in the severe(PT) and non compressible(DP) ranges. The left ANDREA's were within the non compressible(PT) and normal(DP) range. Digits were not evaluation due to bilateral trans metatarsal amputations. Signature Electronically signed by Celi Morgan MD(Interpreting physician)on 11/08/2019 07:32 AM Velocities are measured in cm/s ; Diameters are measured in cm Interface, External Ris In - 11/08/2019 7:32 AM CDTPV LAB - Lower Extremity Arterial Procedure Demographics Patient Name DAYTON GRIJALVA Date of Study 11/07/2019 Age 58 Visit Number [id number] Gender Male Accession Number [id number] Date of 1960 Referring Pattie Mccartney Room Number 2108 Physician Jigar SOLIS Supervisor Glycerin Melina Lopez [facility] [place] Interpreting Physician DESMOND Cortes ProcedureType of Study: Extremities Arteries: Lower Extremity Arterial Procedure, ARTERIAL (ANDREA'S W/DOPPLER) ONLY. Indications for Study:PAD.Patient Status:Routine.Study Location:Vascular Lab.Technical Quality:Adequate visualization.Risk FactorsHistory of Di sadee+---------+----+ +!Diagnosis!Date!Comments !+---------+----+ +!Other ! !Bilateral transmetatarsal amputations, DM, Know PVD, !! ! !Gangrene !+---------+----+--- +ImpressionsRight Impression1. The posteriortibial and dorsalis pedis arteries are patent withmonohpasic Doppler waveforms.2. The PT pressure is66 mmHg with an ANDREA of 0.49 in the severe obstructionrange and the DP pressure is >255 mmHg with an ANDREA of non compressible.3. Digits could not be evaluated due to amputation.Left Impression1. The posterior tibial and dorsalis pedis arteries are patent withmonophasic Doppler waveforms.2. The PT pressure is >255 mmHg with an ANDERA of non compressible and the DPpressure is 130 mmHg with an ANDREA of 0.96, within normal range.3. Digits could not be evaluated due to amputation. Conclusions Summary Arterial pressures and Doppler waveforms were performed bilaterally. Adequate Doppler waveforms were obtained. Doppler waveforms were monophasic bilaterally. The right ANDREA's were in the severe(PT) and noncompressible(DP) ranges. The left ANDREA's were within the non compressible(PT) and normal(DP) range. Digits were not evaluation due to bilateral trans metatarsal amputations. Signature Velocities are measured in cm/s ; Diameters are measured in [facility] Arterial Doppler Legs [id number] 07:32:09Ejection [facility] ECHO HEARTLAB MKCKESSON CPARight Impression1. The common femoral, profunda femoral, superficial femoral and poplitealarteries are calcified with triphasic/biphasic Doppler waveforms throughout.2. 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 There is >50% stenosis in the mid anterior tibial artery with a velocityof 294 cm/sec and monophasic flow distally.Left Impression1. The common femoral, profunda femoral and superficial femoral arteries arecalcified with bi phasic Doppler waveforms throughout.2. There is >50% stenosis in the distal popliteal artery witha velocity of232 cm/sec.3. The posterior tibial artery is patent with monophasic Doppler waveforms.4. The peroneal artery is occluded.5. There is >50% stenosis in the distal anterior tibial artery with avelocity of 139 cm/sec. Conclusions Summary Arterial duplex was performed bilaterally. There was calcification throughout the bilateral lower extremities. There was triphasic and biphasic Doppler waveforms throughout the right common femoral, profunda femoral, superficial femoral and popliteal arteries and the left common femoral, profunda femoral and superficial femoral arteries. The right posterior tibial and peroneal arteries were occluded. There was >50% stenosis of the right mid anterior tibial artery. There was >50% stenosis of the left popliteal and distal anterior tibial arteries. The left peroneal artery was occluded. Signature 07:32 AM Velocities are measured incm/s ; Diameters are measured in cm LE Duplex Measurements Right Left + + + + + + + + + + !Location ! !PSV !EDV !Waveform ! !PSV !EDV !Waveform ! + + + + + + + + + + !Mid Common Femoral ! !131 ! !! !116 ! ! ! + + + + + + +---- + + + !Prox PFA ! !96.4 ! ! ! !110 ! ! ! + + + + + + + + + + !Prox SFA ! !91.7 ! ! ! !85.1 ! ! ! + + + + + + + + + + !Mid SFA ! !93.3 ! ! ! !103 ! ! ! + + + ---------+ + + + + + + !Dist SFA ! !83.1 ! ! ! !75.2 ! ! ! + + + + + + + + + + !Prox Popliteal ! !98.8 ! ! ! !87.6 ! ! ! + + + + + + + + + + !Dist Popliteal ! !76.8 ! ! ! !232 ! ! ! + + + + + + + + + + !Prox GUN WELDER ! !0 ! ! ! !48.8 ! ! ! + + + + + + +- + + + !Mid GUN WELDER ! !0 ! ! ! !70.1 ! ! ! + + + + + + + + + + !Dist GUN WELDER ! !0 ! ! ! !61.6 ! ! ! + + + + + + + + + + !Prox MARTY ! !48.4 ! ! ! !69.8 ! ! ! + + +------- + + + + + + + !Mid MARTY ! !36.8 ! ! ! !54.1 ! ! ! + + + + + + + + + + !Dist MARTY ! !279 ! ! ! !139 ! ! !+ + + + + + + + + + !Prox Peroneal ! !0 ! ! ! !0 ! ! ! + + + + + + + + + + !Mid Peroneal ! !0 ! ! ! !0 ! ! ! + + + + + + + + + + !Dist Peroneal ! !0 ! ! ! !0 ! ! ! + + + + + + + -------+ + + Interface, External Ris In - 11/08/2019 7:32 AMCDTPV LAB - Lower Extremity Arterial Duplex Demographics Patient Name DAYTON GRIJALVA Dateof Study 11/07/2019 Age 58 Visit Number [id number] Gender Male Accession Number [id number] Date of 1960 Referring Pattie Annjustin Room Number 2104 Physician Jigar SOLIS Supervisor Glycerin Melina Lopez T Interpreting Celi Morgan Physician ProcedureType of Study: Extremities Arteries: Lower Extremities Arterial Duplex, ARTERIAL DOPPLER LEGS, BILATERAL. Indications for Study:PAD.Patient Status:Routine.Study Location:Vascular Lab.Technical Quality:Adequate visualization.Risk FactorsHistory of Dis ease+---------+----+ + !Diagnosis!Date!Comments !+---------+----+ +!Other ! !Bilateral transmetatarsal amputations, DM, Know PVD, !! ! !Gangrene !+---------+----+---- +ImpressionsRight Impression1. The common femoral, profunda femoral, superficial femoral and poplitealarteries are calcified with triphasic/biphasic Doppler waveforms throughout.2. 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 There is >50% stenosis in the mid anterior tibial artery with a velocityof 294 cm/sec and monophasic flowdistally.Left Impression1. The common femoral, profunda femoral and superficial femoral arteries arecalcified with biphasic Doppler waveforms throughout.2. There is >50% stenosis in the distal poplit eal artery with a velocity of232 cm/sec.3. The posterior tibial artery is patent with monophasic Doppler waveforms.4. The peroneal artery is occluded.5. There is >50% stenosis in the distal anteriortibial artery with avelocity of 139 cm/sec. Conclusions Summary Arterial duplex was performed bilaterally. There was calcification throughout the bilateral lower extremities. There was triphasic and biphasic Doppler waveforms throughout the right common femoral, profunda femoral, superficial femoraland popliteal arteries and the left common femoral, profunda femoral and superficial femoral arteries. The right posterior tibial and peroneal arteries were occluded. There was >50% stenosis of the r ight mid anterior tibial artery. There was >50% stenosis of the left popliteal and distal anterior tibial arteries. The left peroneal artery was occluded. Signature Velocities are measured in cm/s ; Diameters are measured in cmLE Duplex Measurements Right Left + + + + + + + + + +!Location ! !PSV !EDV !Waveform ! !PSV !EDV !Waveform ! + + + + + + + + + + !Mid Common Fe moral ! !131 ! ! ! !116 ! ! ! + + + + + + + + + + !Prox PFA ! !96.4 ! ! ! !110 ! ! ! + + + + + + +----- + + + !Prox SFA ! !91.7 ! ! ! !85.1 ! ! ! + + + + + + + + + + !Mid SFA ! !93.3 ! ! ! !103 ! ! ! + + + + + + + + + + !Dist SFA ! !83.1 ! ! ! !75.2 ! ! ! + + + + + + + + + + !Prox Popliteal ! !98.8 ! ! ! !87.6 ! ! ! + + + + + + + + + + !Dist Popliteal ! !76.8 ! ! ! !232 ! ! ! + + + + + + + + + + !Prox GUN WELDER ! !0 ! ! ! !48.8 ! ! ! + + + + + + + + + + !Mid GUN WELDER ! !0 ! ! ! !70.1 ! ! ! + + + + + + +-- + + + !Dist GUN WELDER ! !0 ! ! ! !61.6 ! ! ! + + + + + + + + + + !Prox MARTY ! !48.4 ! ! ! !69.8 ! ! ! + + + + + + + + + + !Mid MARTY ! !36.8 ! ! ! !54.1 ! ! ! + + +-------- + + + + + + + !Dist MARTY ! !279 ! ! ! !139 ! ! ! + + + + + + + + + + !Prox Peroneal ! !0 ! ! ! !0 ! ! ! + + + + + + + + + + !Mid Peroneal ! !0 ! ! ! !0 ! ! ! + + + + + + + + + + !Dist Peroneal ! !0 ! ! ! !0 ! ! ! + + + + + + + + + +[facility] [id number] 06:39:00 Test Item Value Reference Range Interpretation Comments SODIUM (BEAKER) 130 meq/L 136-145 L (test code = 381) POTASSIUM (BEAKER) 4.7 meq/L 3.5-5.1 (test code = 379) CHLORIDE (BEAKER) 94 meq/L 98-107 L (test code = 382) CO2 (BEAKER) (test 24 meq/L 22-29 code = 355) BLOOD UREA NITROGEN 62 mg/dL 7-21 H (BEAKER) (test code = 354) CREATININE (BEAKER) 9.70 mg/dL 0.57-1.25 H (test code = 358) GLUCOSE RANDOM 112 mg/dL 70-105 H (BEAKER) (test code = 652) CALCIUM (BEAKER) 7.8 mg/dL 8.4-10.2 L (test code = 697) EGFR (BEAKER) (test 6 mL/min/1.73 ESTIMAT ED GFR IS code = 1092) sq m NOT ACCURATE CREATININE CLEARANCE IN PREDICTING GLOMERULAR FILTRATION RATE . ESTIMATED GFR I S NOT APPLICABLE FOR DIALYSIS PATIEN TS. Contract Engineer ID - DANITZA [id number] 06:38:00 Test Item Value Reference Range Interpretation Comments PHOSPHORUS (BEAKER) (test code = 5.2 mg/dL 2.3-4.7 H 604) Contract Engineer ID - DANITZA [id number] 06:38:00 Test Item Value Reference Range Interpretation Comments MAGNESIUM (BEAKER) (test code = 2.1 mg/dL 1.6-2.6 627) Contract Engineer ID - DANITZA LVANCOMYCIN LEVEL, [id number] 06:18:00 Test Item Value Reference Range Interpretation Comments VANCOMYCIN RANDOM (BEAKER) (test 14.1 ug/mL code = 523) Reference Range: No NormalsOperator ID Benjie BOSCH LCBC W/PLT COUNT & AUTO [id number] 05:32:00 Test Item Value Reference Range Interpretation Comments WHITE BLOOD CELL COUNT (BEAKER) 10.6 K/ L 3.5-10.5 H (test code = 775) RED BLOOD CELL COUNT (BEAKER) 3.36 M/ L 4.63-6.08 L (test code = 761) HEMOGLOBIN (BEAKER) (test code = 9.0 GM/DL 13.7-17.5 L 410) HEMATOCRIT (BEAKER) (test code = 29.1 % 40.1-51.0 L 411) MEAN CORPUSCULAR VOLUME (BEAKER) 86.6 fL 79.0-92.2 (test code = 753) MEAN CORPUSCULAR HEMOGLOBIN 26.8 pg 25.7-32.2 (BEAKER) (test code = 751) MEAN CORPUSCULAR HEMOGLOBIN CONC 30.9 GM/DL 32.3-36.5 L (BEAKER) (test code = 752) RED CELL DISTRIBUTION WIDTH 17.1 % 11.6-14.4 H (BEAKER) (test code = 412) PLATELET COUNT (BEAKER) (test 288 K/CU MM 150-450 code = 756) MEAN PLATELET VOLUME (BEAKER) 10.1 fL 9.4-12.4 (test code = 754) NUCLEATED RED BLOOD CELLS 0 /100 WBC 0-0 (BEAKER) (test code = 413) NEUTROPHILS RELATIVE PERCENT 75 % (BEAKER) (test code = 429) LYMPHOCYTES RELATIVE PERCENT 9 % (BEAKER) (test code = 430) MONOCYTES RELATIVE PERCENT 10 % (BEAKER) (test code = 431) EOSINOPHILS RELATIVE PERCENT 4 % (BEAKER) (test code = 432) BASOPHILS RELATIVE PERCENT 1 % (BEAKER) (test code = 437) NEUTROPHILS ABSOLUTE COUNT 7.95 K/ L 1.78-5.38 H (BEAKER) (test code = 670) LYMPHOCYTES ABSOLUTE COUNT 0.97 K/ L 1.32-3.57 L (BEAKER) (test code = 414) MONOCYTES ABSOLUTE COUNT (BEAKER) 1.04 K/ L 0.30-0.82 H (test code = 415) EOSINOPHILS ABSOLUTE COUNT 0.46 K/ L 0.04-0.54 (BEAKER) (test code = 416) BASOPHILS ABSOLUTE COUNT (BEAKER) 0.08 K/ L 0.01-0.08 (test code = 417) IMMATURE GRANULOCYTES-RELATIVE 1 % 0-1 PERCENT (BEAKER) (test code = 2801) POCT-GLUCOSE [id number] 21:15:00 Test Item Value Reference Range Interpretation Comments POC-GLUCOSE METER 199 mg/dL 70-110 H : TESTED A T [facility] 6720 (BEAKER) (test code = [facility], 1538) 46615: Contract Engineer/Techni estefani ID = [id number] for SA HIGGINSDEANNACRYSTAL POCT-GLUCOSE [id number] 17:20:00 Test Item Value Reference Range Interpretation Comments POC-GLUCOSE METER 214 mg/dL 70-110 H : TESTED A T [facility] 6720 (BEAKER) (test code = [facility], 1538) [id number]: Contract Engineer/Techni estefani ID = [id number] for SA NTOS, JACOB POCT-GLUCOSE [id number] 12:59:00 Test Item Value Reference Range Interpretation Comments POC-GLUCOSE METER 135 mg/dL 70-110 H : TESTED A T [facility] 6720 (BEAKER) (test code = [facility], 1538) 05298: Contract Engineer/Techni estefani ID = [id number] for SA NTOS, JACOB POCT-GLUCOSE [id number] 06:05:00 Test Item Value Reference Range Interpretation Comments POC-GLUCOSE METER 130 mg/dL 70-110 H : TESTED A T [facility] 6720 (BEAKER) (test code = [facility], 1538) [id number]: Contract Engineer/Techni estefani ID = [id number] for SJ HERBERT BASIC METABOLIC [id number] 05:38:00 Test Item Value Reference Range Interpretation Comments SODIUM (BEAKER) 136 meq/L 136-145 (test code = 381) POTASSIUM (BEAKER) 4.5 meq/L 3.5-5.1 (test code = 379) CHLORIDE (BEAKER) 98 meq/L 98-107 (test code = 382) CO2 (BEAKER) (test 25 meq/L 22-29 code = 355) BLOOD UREA NITROGEN 46 mg/dL 7-21 H (BEAKER) (test code = 354) CREATININE (BEAKER) 8.04 mg/dL 0.57-1.25 H (test code = 358) GLUCOSE RANDOM 120 mg/dL 70-105 H (BEAKER) (test code = 652) CALCIUM (BEAKER) 7.7 mg/dL 8.4-10.2 L (test code = 697) EGFR (BEAKER) (test 7 mL/min/1.73 ESTIMAT ED GFR IS code = 1092) sq m NOT ACCURATE CREATININE CLEARANCE IN PREDICTING GLOMERULAR FILTRATION RATE . ESTIMATED GFR I S NOT APPLICABLE FOR DIALYSIS PATIEN TS. Contract Engineer ID - [id number] 05:36:00 Test Item Value Reference Range Interpretation Comments PHOSPHORUS (BEAKER) (test code = 5.1 mg/dL 2.3-4.7 H 604) Contract Engineer ID - [id number] 05:36:00 Test Item Value Reference Range Interpretation Comments MAGNESIUM (BEAKER) (test code = 2.2 mg/dL 1.6-2.6 627) Contract Engineer ID - EDASIPOCT-GLUCOSE [id number] 03:01:00 Test Item Value Reference Range Interpretation Comments POC-GLUCOSE METER 72 mg/dL 70-110 : TESTED A T [facility] 6720 (BEAKER) (test code = [facility], 1538) [id number]: Contract Engineer/Techni estefani ID = [id number] for ADRY TTIL, SJ POCT-GLUCOSE [id number] 00:16:00 Test Item Value Reference Range Interpretation Comments POC-GLUCOSE METER 94 mg/dL 70-110 : TESTED A T [facility] 6720 (BEAKER) (test code = [facility], 1538) 66245: Contract Engineer/Techni estefani ID = [id number] for ADRY TTIL, SJ POCT-GLUCOSE [id number] 23:44:00 Test Item Value Reference Range Interpretation Comments POC-GLUCOSE METER 57 mg/dL 70-110 L : TESTED A T [facility] 6720 (BEAKER) (test code = [facility], 1538) 26170: Contract Engineer/Techni estefani ID = [id number] for ADRY TTIL, SJ POCT-GLUCOSE [id number] 21:06:00 Test Item Value Reference Range Interpretation Comments POC-GLUCOSE METER 80 mg/dL 70-110 : TESTED A T [facility] 6720 (BEAKER) (test code = [facility], 1538) 48832: Contract Engineer/Techni estefani ID = [id number] for ADRY TTIL, SJ POCT-GLUCOSE [id number] 18:03:00 Test Item Value Reference Range Interpretation Comments POC-GLUCOSE METER 70 mg/dL 70-110 : [facility] (BEAKER) (test code = [facility] [place], 1538) 35084: Contract Engineer/Techni estefani ID = [id number] for EVONNE GARCIA VIAL POCT-GLUCOSE [id number] 17:47:00 Test Item Value Reference Range Interpretation Comments POC-GLUCOSE METER 45 mg/dL 70-110 L : TESTED A T [facility] 6720 (BEAKER) (test code = [facility] [place], 1538) 04593: Contract Engineer/Techni estefani ID = [id number] for EVONNE GARCIA VIAL SARS-COV2/RT-PCR ([facility])2019-11-06 13:38:00 Test Item Value Reference Range Interpretation Comments SARS-COV2/RT-PCR (test Negative Not Detected, Negative, code = 2446697) See external report for linked test SARS-COV-2 PERFORMING LAB [facility] (test code = 0679423) Negative result for this test determines that SARS-CoV-2 RNA was not present in the specimen above the Limit of Detection (LOD). However, Negative results do not preclude SARS-CoV-2 infection and should not be used as the sole basis for treatment or patient management decisions. Negative results mustbe combined with clinical observations, patient history, and epidemiological information. A false negative result may occur if a specimen is improperly collected, transported or handled. A false negative result should be considered if patient's recent exposures or clinical presentation indicate that COVID-19 (SARS-CoV-2) is likely and diagnostic tests for other causes of illness are negative. Re-testing should be considered in cases of suspected false negatives.The limit of detection for this assay is 800 copies/mL.This SARS CoV-2 test is a real-time RT-PCR test intended for the qualitative detection of nucleic acid from SARS-CoV-2 in a nasopharyngeal swab specimen collected from individuals susp ected of COVID-19 by their healthcare provider.This test has not been Food and Drug Administration (FDA) cleared or approved. This is a modified version of an approved Emergency Use Authorization (EUA) and is in the process of review by the FDA. Once authorized by the FDA, the issued EUA will be effective until the declaration that circumstances exist justifying the authorization of the emergency use of in vitro diagnostic tests for detection and/or diagnosis of COVID-19 is terminated under Section 564(b)(2) of the Act or the EUA is revoked under Section 564(g) of the Act.Fact Sheet for Healthcare Providers:https://www.[employer]/sites/default/files/product/documents/Fact_Shee m_GK_Mfrnnmwov_Rhnj_AOGH-BcG-1.pdfFact Sheet for Healthcare Patients:https://www.[employer]/sites/default/files/product/ documents/Gcno_Hwers_Lvenrdvn_Abww_XWKM-KvL-0.pdfPerforming Laboratory:[facility], [place] [id number] 12:56:00 Test Item Value Reference Range Interpretation Comments FERRITIN (BEAKER) (test code = 1137.02 ng/mL 5.00-275.00 H 361) Contract Engineer ID - NTPIRON, TIBC, % SAT. (WITHOUT FERRITIN)2019-11-06 12:36:00 Test Item Value Reference Range Interpretation Comments IRON (BEAKER) (test code = 547) 16.0 ug/dL 40.0-160.0 L TOTAL IRON BINDING CAPACITY 139 ug/dL 250-450 L (BEAKER) (test code = 769) IRON % SATURATION (2) (BEAKER) 12 % 20-55 L (test code = 2590) Contract Engineer ID - NTPRAD, FOOT, MIN 3 VIEWS, [id number] 11:14:00Reason for exam:->Nonhealing right TMA stump; open woundsFINAL REPORT RAD, FOOT, MIN 3 VIEWS, RIGHT CLINICAL INDICATION: Nonhealingright TMA stump; open wounds COMPARISON: June 19, 2019 FINDINGS: Frontal, oblique and lateral views of the right foot. IMPRESSION: Proximal mid foot dictations again noted affecting all five rays. Overlying soft tissue has degraded over the interval with erosive changes affecting all amputation stumps. Subcutaneous emphysema is seen greatest laterally. Overall picture is concerning for multifocal osteomyelitis. Degenerative changes are noted in the remaining joint spaces. Dense vascular calcifications are present. Signed: JR Cuello Robert MDReport Verified Date/Time: 11/06/2019 11:14:48 Reading Location: [facility] Reading Room POCT-GLUCOSE [id number] 06:53:00 Test Item Value Reference Range Interpretation Comments POC-GLUCOSE METER 81 mg/dL 70-110 : TESTED A T [facility] 6720 (BEAKER) (test code = [facility] [place], 1538) 24853: Contract Engineer/Techni estefani ID = [id number] for SJ WHITAKER [id number] 06:44:00 Test Item Value Reference Range Interpretation Comments MAGNESIUM (BEAKER) (test code = 2.3 mg/dL 1.6-2.6 627) Contract Engineer ID - [id number] 06:44:00 Test Item Value Reference Range Interpretation Comments PHOSPHORUS (BEAKER) (test code = 5.4 mg/dL 2.3-4.7 H 604) Contract Engineer ID - DBPOCT-GLUCOSE [id number] 06:36:00 Test Item Value Reference Range Interpretation Comments POC-GLUCOSE METER 61 mg/dL 70-110 L : TESTED A T [facility] 6720 (BEAKER) (test code = [facility], 1538) 69911: Contract Engineer/Techni estefani ID = [id number] for SJ WHITAKER CBC W/PLT COUNT & AUTO [id number] 06:23:00 Test Item Value Reference Range Interpretation Comments WHITE BLOOD CELL COUNT (BEAKER) 11.8 K/ L 3.5-10.5 H (test code = 775) RED BLOOD CELL COUNT (BEAKER) 3.16 M/ L 4.63-6.08 L (test code = 761) HEMOGLOBIN (BEAKER) (test code = 8.5 GM/DL 13.7-17.5 L 410) HEMATOCRIT (BEAKER) (test code = 27.1 % 40.1-51.0 L 411) MEAN CORPUSCULAR VOLUME (BEAKER) 85.8 fL 79.0-92.2 (test code = 753) MEAN CORPUSCULAR HEMOGLOBIN 26.9 pg 25.7-32.2 (BEAKER) (test code = 751) MEAN CORPUSCULAR HEMOGLOBIN CONC 31.4 GM/DL 32.3-36.5 L (BEAKER) (test code = 752) RED CELL DISTRIBUTION WIDTH 17.0 % 11.6-14.4 H (BEAKER) (test code = 412) PLATELET COUNT (BEAKER) (test 286 K/CU MM 150-450 code = 756) MEAN PLATELET VOLUME (BEAKER) 9.9 fL 9.4-12.4 (test code = 754) NUCLEATED RED BLOOD CELLS 0 /100 WBC 0-0 (BEAKER) (test code = 413) NEUTROPHILS RELATIVE PERCENT 77 % (BEAKER) (test code = 429) LYMPHOCYTES RELATIVE PERCENT 9 % (BEAKER) (test code = 430) MONOCYTES RELATIVE PERCENT 12 % (BEAKER) (test code = 431) EOSINOPHILS RELATIVE PERCENT 1 % (BEAKER) (test code = 432) BASOPHILS RELATIVE PERCENT 1 % (BEAKER) (test code = 437) NEUTROPHILS ABSOLUTE COUNT 9.15 K/ L 1.78-5.38 H (BEAKER) (test code = 670) LYMPHOCYTES ABSOLUTE COUNT 1.04 K/ L 1.32-3.57 L (BEAKER) (test code = 414) MONOCYTES ABSOLUTE COUNT (BEAKER) 1.36 K/ L 0.30-0.82 H (test code = 415) EOSINOPHILS ABSOLUTE COUNT 0.16 K/ L 0.04-0.54 (BEAKER) (test code = 416) BASOPHILS ABSOLUTE COUNT (BEAKER) 0.06 K/ L 0.01-0.08 (test code = 417) IMMATURE GRANULOCYTES-RELATIVE 1 % 0-1 PERCENT (BEAKER) (test code = 2801) VANCOMYCIN LEVEL, [id number] 06:22:00 Test Item Value Reference Range Interpretation Comments VANCOMYCIN RANDOM (BEAKER) (test 12.3 ug/mL code = 523) Reference Range: No NormalsOperator ID - EDASIPOCT-GLUCOSE [id number] 06:07:00 Test Item Value Reference Range Interpretation Comments POC-GLUCOSE METER 42 mg/dL 70-110 L : TESTED A T [facility] 6720 (BEAKER) (test code = [facility] [place], 1538) 52940: Contract Engineer/Techni estefani ID = [id number] for ADRY TTIL, SJ CREATINE KINASE (CK)2019-11-06 05:29:00 Test Item Value Reference Range Interpretation Comments CREATINE KINASE TOTAL (BEAKER) (test 131 U/L 29-200 code = 380) Contract Engineer ID - EDASICOMPREHENSIVE METABOLIC [id number] 05:29:00 Test Item Value Reference Range Interpretation Comments TOTAL PROTEIN 6.8 gm/dL 6.0-8.3 (BEAKER) (test code = 770) ALBUMIN (BEAKER) 3.1 g/dL 3.5-5.0 L (test code = 1145) ALKALINE PHOSPHATASE 55 U/L 40-150 (BEAKER) (test code = 346) BILIRUBIN TOTAL 0.4 mg/dL 0.2-1.2 (BEAKER) (test code = 377) SODIUM (BEAKER) (test 134 meq/L 136-145 L code = 381) POTASSIUM (BEAKER) 5.4 meq/L 3.5-5.1 H (test code = 379) CHLORIDE (BEAKER) 95 meq/L 98-107 L (test code = 382) CO2 (BEAKER) (test 22 meq/L 22-29 code = 355) BLOOD UREA NITROGEN 97 mg/dL 7-21 H (BEAKER) (test code = 354) CREATININE (BEAKER) 12.94 mg/dL 0.57-1.25 H (test code = 358) GLUCOSE RANDOM 56 mg/dL 70-105 L (BEAKER) (test code = 652) CALCIUM (BEAKER) 7.7 mg/dL 8.4-10.2 L (test code = 697) AST (SGOT) (BEAKER) 17 U/L 5-34 (test code = 353) ALT (SGPT) (BEAKER) 9 U/L 6-55 (test code = 347) EGFR (BEAKER) (test 4 mL/min/1.73 ESTIMAT ED GFR IS code = 1092) sq m NOT ACCURATE CREATININE CLEARANCE IN PREDICTING GLOMERULAR FILTRATION RATE . ESTIMATED GFR I S NOT APPLICABLE FOR DIALYSIS PATIEN TS. Contract Engineer ID - EDASICOMPREHENSIVE METABOLIC [id number] 23:15:00 Test Item Value Reference Range Interpretation Comments TOTAL PROTEIN 7.6 gm/dL 6.0-8.3 (BEAKER) (test code = 770) ALBUMIN (BEAKER) 3.4 g/dL 3.5-5.0 L (test code = 1145) ALKALINE PHOSPHATASE 64 U/L 40-150 (BEAKER) (test code = 346) BILIRUBIN TOTAL 0.4 mg/dL 0.2-1.2 (BEAKER) (test code = 377) SODIUM (BEAKER) (test 130 meq/L 136-145 L code = 381) POTASSIUM (BEAKER) 6.1 meq/L 3.5-5.1 HH (test code = 379) CHLORIDE (BEAKER) 92 meq/L 98-107 L (test code = 382) CO2 (BEAKER) (test 21 meq/L 22-29 L code = 355) BLOOD UREA NITROGEN 97 mg/dL 7-21 H (BEAKER) (test code = 354) CREATININE (BEAKER) 12.24 mg/dL 0.57-1.25 H (test code = 358) GLUCOSE RANDOM 97 mg/dL 70-105 (BEAKER) (test code = 652) CALCIUM (BEAKER) 7.9 mg/dL 8.4-10.2 L (test code = 697) AST (SGOT) (BEAKER) 15 U/L 5-34 (test code = 353) ALT (SGPT) (BEAKER) 10 U/L 6-55 (test code = 347) EGFR (BEAKER) (test 4 mL/min/1.73 ESTIMAT ED GFR IS code = 1092) sq m NOT ACCURATE CREATININE CLEARANCE IN PREDICTING GLOMERULAR FILTRATION RATE . ESTIMATED GFR I S NOT APPLICABLE FOR DIALYSIS PATIEN TS. Contract Engineer ID - DBLACTIC ACID, [id number] 23:09:00 Test Item Value Reference Range Interpretation Comments LACTATE BLOOD VENOUS (2) (BEAKER) 1.19 mmol/L 0.50-2.20 (test code = 2872) Contract Engineer ID - DBPOCT-GLUCOSE [id number] 22:24:00 Test Item Value Reference Range Interpretation Comments POC-GLUCOSE METER 103 mg/dL 70-110 : TESTED A T [facility] 6720 (BEAKER) (test code = DASIA ORR, 1538) 05434: Contract Engineer/Techni estefani ID = [id number] for SJ HERBERT POCT-GLUCOSE [id number] 21:50:00 Test Item Value Reference Range Interpretation Comments POC-GLUCOSE METER 63 mg/dL 70-110 L : TESTED A T [facility] 6720 (BEAKER) (test code = [facility], 153) 43633: Contract Engineer/Techni estefani ID = [id number] for ADRY TTIL, SJ POCT-GLUCOSE [id number] 21:33:00 Test Item Value Reference Range Interpretation Comments POC-GLUCOSE METER 42 mg/dL 70-110 L : TESTED A T [facility] 6720 (BEAKER) (test code = [facility], 153) 12744: Contract Engineer/Techni estefani ID = [id number] for ADRY TTIL, SJ ANAEROBIC [id number] 19:16:00 Test Item Value Reference Range Interpretation Comments CULTURE (BEAKER) A 2+ Same org anism has been (test code = 1095) isolated from culture(s) of the same body s ite and collection date . Repeat identification performed only after cons ultation with the [facility] microbiology laboratory.Refe r to previous cultur e of* - Cutibacterium a cnes ANAEROBIC [id number] 19:13:00 Test Item Value Reference Range Interpretation Comments CULTURE (BEAKER) (test A 2+ Cu tibacterium acnes code = 1095) POCT-GLUCOSE [id number] 11:08:00 Test Item Value Reference Range Interpretation Comments POC-GLUCOSE METER 136 mg/dL 70-110 H : TESTED A T [facility] 6720 (BEAKER) (test code = [facility], 153) 36205: Contract Engineer/Techni estefani ID = [id number] for BR OWN, MOJICA POCT-GLUCOSE [id number] 07:51:00 Test Item Value Reference Range Interpretation Comments POC-GLUCOSE METER 89 mg/dL 70-110 : TESTED A T [facility] 6720 (BEAKER) (test code = [facility], 153) 89439: Contract Engineer/Techni estefani ID = [id number] for BROW N, MOJICA POCT-GLUCOSE [id number] 21:07:00 Test Item Value Reference Range Interpretation Comments POC-GLUCOSE METER 145 mg/dL 70-110 H : TESTED A T [facility] 6720 (BEAKER) (test code = [facility], 153) 20036: Contract Engineer/Techni estefani ID = [id number] for AN RON BAIRD POCT-GLUCOSE [id number] 14:59:00 Test Item Value Reference Range Interpretation Comments POC-GLUCOSE METER 152 mg/dL 70-110 H : TESTED A T [facility] 6720 (BEAKER) (test code = DASIA SONG [place], 1538) 08584: Contract Engineer/Techni estefani ID = [id number] for Mary Lou Bartholomew BASIC METABOLIC [id number] 10:10:00 Test Item Value Reference Range Interpretation [...] S NOT APPLICABLE FOR DIALYSIS PATIEN TS. Contract Engineer ID - EDASISURGICALLY OBTAINED CULTURE + GRAM [id number] 09:54:00 Test Item Value Reference Range Interpretation Comments CULTURE (BEAKER) A <1+ Same or ganism has (test code = been isolated f rom 1095) cultures(s) of the same body site and collection date . Repeat identifi cation and susceptibil ity testing perform ed only after consultat ion with the clinic [place] microbiology laboratory.Refe r to previous cultur e ofCandida parap silosis GRAM STAIN 1+ WBCs RESULT (BEAKER) (test code = 1123) GRAM STAIN <1+ gram RESULT (BEAKER) negative rods (test code = 864332) GRAM STAIN <1+ gram RESULT (BEAKER) positive cocci (test code = in pairs 688874) 1+ Skin floraSURGICALLY OBTAINED CULTURE + GRAM [id number] 09:49:00 Test Item Value Reference Interpretation Comments [...] gram negative (BEAKER) (test code = rods 605091) GRAM STAIN RESULT <1+ gram positive (BEAKER) (test code = rods 187117) GRAM STAIN RESULT 2+ gram positive (BEAKER) (test code = cocci in pairs 054764) GRAM STAIN RESULT 1+ gram positive (BEAKER) (test code = cocci in clusters 104214) GRAM STAIN RESULT 1+ yeast (BEAKER) (test code = 814794) 3+ Skin lake consisting of Coagulase Negative Staphylococcus and Diphtheroid species.POCT-GLUCOSE [id number] 08:04:00 Test Item Value Reference Range Interpretation Comments POC-GLUCOSE METER 92 mg/dL 70-110 : TESTED A T [facility] 6720 (BEAKER) (test code = [facility], 1538) 13207: Contract Engineer/Techni estefani ID = [id number] for Will Phil valadez POCT-GLUCOSE [id number] 21:49:00 Test Item Value Reference Range Interpretation Comments POC-GLUCOSE METER 155 mg/dL 70-110 H : TESTED A T [facility] 6720 (BEAKER) (test code = [facility], 1538) 17456: Contract Engineer/Techni estefani ID = [id number] for AN RON BAIRD POCT-GLUCOSE [id number] 18:15:00 Test Item Value Reference Range Interpretation Comments POC-GLUCOSE METER 160 mg/dL 70-110 H : TESTED A T [facility] 6720 (BEAKER) (test code = [facility], 1538) 91123: Contract Engineer/Techni estefani ID = [id number] for Celi Jesus POCT-GLUCOSE [id number] 14:24:00 Test Item Value Reference Range Interpretation Comments POC-GLUCOSE METER 182 mg/dL 70-110 H : TESTED A T [facility] 6720 (BEAKER) (test code = [facility], 1538) 17007: Contract Engineer/Techni estefani ID = [id number] for Celi Jesus POCT-GLUCOSE [id number] 09:44:00 Test Item Value Reference Range Interpretation Comments POC-GLUCOSE METER 146 mg/dL 70-110 H : TESTED A T [facility] 6720 (BEAKER) (test code = [facility], 1538) 81773: Contract Engineer/Techni estefani ID = [id number] for Celi Jesus BASIC METABOLIC [id number] 07:20:00 Test Item Value Reference Range Interpretation [...] S NOT APPLICABLE FOR DIALYSIS PATIEN TS. Contract Engineer ID - DANITZA LCBC W/PLT COUNT & AUTO [id number] 05:47:00 Test Item Value Reference Range Interpretation [...] PERCENT (BEAKER) (test code = 2801) POCT-GLUCOSE [id number] 05:39:00 Test Item Value Reference Range Interpretation Comments POC-GLUCOSE METER 200 mg/dL 70-110 H : [facility] (test code = [facility], [facility]8) 01225: Contract Engineer/Techni estefani ID = [id number] for CHRIS MAJANO POCT-GLUCOSE [id number] 05:35:00 Test Item Value Reference Range Interpretation Comments POC-GLUCOSE METER 120 mg/dL 70-110 H : TESTED A T [facility] 6720 ([facility]) (test code = [facility], [facility]8) 90811: Contract Engineer/Techni estefani ID = [id number] for EVONNE RUBY VIAL POCT-GLUCOSE [id number] 05:25:00 Test Item Value Reference Range Interpretation Comments POC-GLUCOSE METER 126 mg/dL 70-110 H : TESTED A T [facility] 6720 (BEAKER) (test code = [facility], [facility]8) 34358: Contract Engineer/Techni estefani ID = [id number] for Celi Jesus POCT-GLUCOSE [id number] 05:19:00 Test Item Value Reference Range Interpretation Comments POC-GLUCOSE METER 103 mg/dL 70-110 : [facility] (test code = [facility], [facility]8) 73375: Contract Engineer/Techni estefani ID = [id number] for Mila Jesusfer HEPATITIS B SURFACE [id number] 11:26:00 Test Item Value Reference Range Interpretation Comments HEPATITIS B SURFACE ANTIGEN (2) Nonreactive Nonreactive (AKER) (test code = 2585) Specimen is considered negative for HBsAg.POCT-GLUCOSE [id number] 21:38:00 Test Item Value Reference Range Interpretation Comments POC-GLUCOSE METER 170 mg/dL 70-110 H : TESTED A T [facility] 6720 (BEAKER) (test code = [facility], [facility]8) 98541: Contract Engineer/Techni estefani ID = [id number] for AN RON BAIRD POCT-GLUCOSE [id number] 17:00:00 Test Item Value Reference Range Interpretation Comments POC-GLUCOSE METER 150 mg/dL 70-110 H : TESTED A T [facility] 6720 (BEAKER) (test code = [facility], 1538) 51390: Contract Engineer/Techni estefani ID = [id number] for Katie Medrano POCT-GLUCOSE [id number] 08:37:00 Test Item Value Reference Range Interpretation Comments POC-GLUCOSE METER 105 mg/dL 70-110 : TESTED A T [facility] 6720 (BEAKER) (test code = [facility], 1538) 48311: Contract Engineer/Techni estefani ID = [id number] for Katie Medrano POCT-GLUCOSE [id number] 17:56:00 Test Item Value Reference Range Interpretation Comments POC-GLUCOSE METER 96 mg/dL 70-110 : TESTED A T [facility] 6720 (BEAKER) (test code = [facility], 1538) 87929: Contract Engineer/Techni estefani ID = [id number] for COLEEN LEWISROSE Blood gas, [id number] 17:17:00 Test Item Value Reference Range Interpretation Comments pH, Arterial (test code 7.32 7.35-7.45 L = 2744-1) pCO2, Arterial (test 55 See_Comment H [Autom ated message] code = 2019-8) The system Medig[employer] generated this result transmit doris reference range : 35 - 45 mmHg. The reference range was not used to interpret this result as normal/abnormal . pO2, Arterial (test 230 See_Comment H [Automa doris message] code = 2703-7) The system Medig[employer] generated this result transmit doris reference range : 80 - 90 mmHg. The reference range was not used to interpret this result as normal/abnormal . O2 Sat, Arterial (test 99.4 % 96-97 H code = 2708-6) HCO3, Arterial (test 28 mmol/L 21-29 code = 1960-4) Base Excess, Arterial 0.7 mmol/L -2-3 (test code = 1925-7) Patient Temperature 36.0 C (test code = 8310-5) FIO2 (test code = 1819) 90 % Lab Interpretation Abnormal (test code = 32824-3) [facility] Na-Stat [id number] 17:17:00 Test Item Value Reference Range Interpretation Comments Sodium (test code = 2951-2) 134 meq/L 136-145 L Lab Interpretation (test code = Abnormal 63847-9) [facility] [id number] 17:17:00 Test Item Value Reference Range Interpretation [...] code = 1819) 90.0 % SODIUM NA-STAT [id number] 17:17:00 Test Item Value Reference Range Interpretation Comments SODIUM (BEAKER) (test code = 381) 134 meq/L 136-145 L HGB/HCT (H&H) - STAT [id number] 17:17:00 Test Item Value Reference Range Interpretation Comments HEMOGLOBIN (BEAKER) (test code = 11.4 g/dL 13.0-16.8 L 410) HEMATOCRIT (BEAKER) (test code = 34.0 % 40.0-50.0 L 411) CALCIUM, [id number] 17:17:00 Test Item Value Reference Range Interpretation Comments CALCIUM IONIZED (BEAKER) (test 1.22 mmol/L 1.12-1.27 code = 698) PH, BLOOD (BEAKER) (test code = 7.30 1810) GLUCOSE-STAT [id number] 17:16:00 Test Item Value Reference Range Interpretation Comments GLUCOSE RANDOM (BEAKER) (test code = 92 mg/dL 70-110 652) POTASSIUM-STAT [id number] 17:16:00 Test Item Value Reference Range Interpretation Comments POTASSIUM (BEAKER) (test code = 4.3 meq/L 3.6-5.5 379) CALCIUM, [id number] 15:59:00 Test Item Value Reference Range Interpretation Comments CALCIUM IONIZED (BEAKER) (test 1.07 mmol/L 1.12-1.27 L code = 698) PH, BLOOD (BEAKER) (test code = 7.48 1810) BLOOD GAS, [id number] 15:59:00 Test Item Value Reference Range Interpretation [...] code = 1819) 50.0 % SODIUM NA-STAT [id number] 15:59:00 Test Item Value Reference Range Interpretation Comments SODIUM (BEAKER) (test code = 381) 133 meq/L 136-145 L HGB/HCT (H&H) - STAT [id number] 15:59:00 Test Item Value Reference Range Interpretation Comments HEMOGLOBIN (BEAKER) (test code = 10.8 g/dL 13.0-16.8 L 410) HEMATOCRIT (BEAKER) (test code = 32.0 % 40.0-50.0 L 411) GLUCOSE-STAT [id number] 15:58:00 Test Item Value Reference Range Interpretation Comments GLUCOSE RANDOM (BEAKER) (test code 101 mg/dL 70-110 = 652) POTASSIUM-STAT [id number] 15:58:00 Test Item Value Reference Range Interpretation Comments POTASSIUM (BEAKER) (test code = 4.1 meq/L 3.6-5.5 379) CALCIUM, [id number] 15:12:00 Test Item Value Reference Range Interpretation Comments CALCIUM IONIZED (BEAKER) (test 1.07 mmol/L 1.12-1.27 L code = 698) PH, BLOOD (BEAKER) (test code = 7.48 1810) BLOOD GAS, [id number] 15:12:00 Test Item Value Reference Range Interpretation [...] code = 1819) 50.0 % SODIUM NA-STAT [id number] 15:12:00 Test Item Value Reference Range Interpretation Comments SODIUM (BEAKER) (test code = 381) 134 meq/L 136-145 L GLUCOSE-STAT [id number] 15:12:00 Test Item Value Reference Range Interpretation Comments GLUCOSE RANDOM (BEAKER) (test code = 64 mg/dL 70-110 L 652) HGB/HCT (H&H) - STAT [id number] 15:12:00 Test Item Value Reference Range Interpretation Comments HEMOGLOBIN (BEAKER) (test code = 10.9 g/dL 13.0-16.8 L 410) HEMATOCRIT (BEAKER) (test code = 32.0 % 40.0-50.0 L 411) POTASSIUM-STAT [id number] 15:10:00 Test Item Value Reference Range Interpretation Comments POTASSIUM (BEAKER) (test code = 4.2 meq/L 3.6-5.5 379) SARS-COV2/RT-PCR ([facility])2019-10-18 09:21:00 Test Item Value Reference Range Interpretation Comments SARS-COV2/RT-PCR (test code Negative Not Detected, Negative, = 9330430) See external report for linked test SARS-COV-2 PERFORMING LAB [facility] (test code = 5813269) Negative results do not preclude SARS-CoV-2 infection [...] of the Act.Fact Sheet for Healthcare Pro viders:https://www.[employer]eebow/Documents/Xpert%20Xpress%20SARS%20CoV-2/Fact%20Sh eets/302-3802%24GSZF-YOB-1%20HEALTHCARE%20PROVIDERS%20FACT%20SHEET.pdfFact Sheet for Healthcare Patients:https://www.[employer]/Documents/Xpert%20Xpress%20SARS%20CoV-2/Fact%20Sheets/302-3801%20SARS-COV -2%20PATIENT%20FACT%20SHEET.pdfPerforming Laboratory:[facility] [place] [address].[place], [place] [address]KHP AND CREATININE [id number] 08:45:00 Test Item Value Reference Range Interpretation Comments BLOOD UREA NITROGEN 58 mg/dL 7-21 H (BEAKER) (test code = 354) CREATININE (BEAKER) 7.72 mg/dL 0.57-1.25 H (test code = 358) BUN/CREAT RATIO 8 Unable to ca lculate (BEAKER) (test code due to n on-numeric = 6918186206) results EGFR (BEAKER) (test 7 mL/min/1.73 ESTIMAT ED GFR IS code = 1092) sq m NOT ACCURATE CREATININE CLEARANCE IN PREDICTING GLOMERULAR FILTRATION RATE . ESTIMATED GFR I S NOT APPLICABLE FOR DIALYSIS PATIEN TS. Contract Engineer ID - [id number] 08:43:00 Test Item Value Reference Range Interpretation Comments SODIUM (BEAKER) (test code = 381) 137 meq/L 136-145 POTASSIUM (BEAKER) (test code = 5.1 meq/L 3.5-5.1 379) CHLORIDE (BEAKER) (test code = 382) 100 meq/L 98-107 CO2 (BEAKER) (test code = 355) 23 meq/L 22-29 Contract Engineer ID - [id number] 08:43:00 Test Item Value Reference Range Interpretation Comments GLUCOSE RANDOM (BEAKER) (test code 157 mg/dL 70-105 H = 652) Contract Engineer ID - ROSIANGPlatelet [id number] 08:16:00 Test Item Value Reference Range Interpretation Comments Platelets (test code 259 See_Comment [Autom ated = 777-3) message] The system which generated this result transmit doris reference range : 150 - 450 K/CU MM. The reference range was not u sed to interpret th is result as normal/abnormal . MITCHELL (test code = MITCHELL) Contract Engineer ID - [id number] Lab Interpretation Normal (test code = 02826-7) [id number] 08:16:00 Test Item Value Reference Range Interpretation Comments HEMOGLOBIN (BEAKER) (test code = 11.1 GM/DL 13.7-17.5 L 410) Contract Engineer ID - [id number] [id number] 08:16:00 Test Item Value Reference Range Interpretation Comments PLATELET COUNT (BEAKER) (test 259 K/CU MM 150-450 code = 756) Contract Engineer ID - 6000POCT-GLUCOSE [id number] 06:26:00 Test Item Value Reference Range Interpretation Comments POC-GLUCOSE METER 129 mg/dL 70-110 H : TESTED A T [facility] 6720 (BEAKER) (test code [facility], = 1538) 48901: Contract Engineer/Techni estefani ID = [id number] for JORD AN, LACRYSTAL BUN AND CREATININE [id number] 10:25:00 Test Item Value Reference Range Interpretation [...] S NOT APPLICABLE FOR DIALYSIS PATIEN TS. Contract Engineer ID - [id number] 10:23:00 Test Item Value Reference Range Interpretation Comments SODIUM (BEAKER) (test code = 381) 140 meq/L 136-145 POTASSIUM (BEAKER) (test code = 4.5 meq/L 3.5-5.1 379) CHLORIDE (BEAKER) (test code = 382) 101 meq/L 98-107 CO2 (BEAKER) (test code = 355) 26 meq/L 22-29 Contract Engineer ID - [id number] 10:23:00 Test Item Value Reference Range Interpretation Comments GLUCOSE RANDOM (BEAKER) (test code 157 mg/dL 70-105 H = 652) Contract Engineer ID - [id number] 10:11:00 Test Item Value Reference Range Interpretation Comments HEMOGLOBIN (BEAKER) (test code = 12.2 GM/DL 13.7-17.5 L 410) Contract Engineer ID - [id number] CULTURE + SMEAR (NON-SPUTUM)2019-08-01 12:08:00 Test Item Value Reference Range Interpretation Comments CULTURE (BEAKER) (test No acid-fast bacilli code = 1095) isolated in 42 days AFB SMEAR (BEAKER) No acid fast bacilli (test code = 994) seen FUNGUS CULTURE + [id number] 17:59:00 Test Item Value Reference Range Interpretation Comments CULTURE (BEAKER) (test No fungus isolated in code = 1095) 28 days FUNGUS SMEAR (BEAKER) No fungal elements seen (test code = 1406) POCT-GLUCOSE [id number] 12:17:00 Test Item Value Reference Range Interpretation Comments POC-GLUCOSE METER 159 mg/dL 70-110 H : TESTED A T [facility] 6720 (NOE) (test code = DASIA Garcia [facility], 1538) 46051: Contract Engineer/Techni estefani ID = [id number] for BLESSING TUTTLE HEMODIALYSIS [id number] 11:56:42Izaiah Brown, SUNITA 06/27/2019 11:57 AMHD x 3.5 hrs [...] HEPBIGM, HEPBCAB, HBEAG, HEPCABNo results found for: [id number] Profile: No results found for: PROTIME, INR, PTTCHI [facility] [id number] 08:03:00 Test Item Value Reference Range Interpretation Comments POC-GLUCOSE METER 119 mg/dL 70-110 H : TESTED A T [facility] 6720 (NOE) (test code = DASIA Garcia [facility], 1538) 08866: Contract Engineer/Techni estefani ID = [id number] for Izaiah Barber BASIC METABOLIC [id number] 05:28:00 Test Item Value Reference Range Interpretation [...] S NOT APPLICABLE FOR DIALYSIS PATIEN TS. Contract Engineer ID - JAQUELINE [id number] 05:26:00 Test Item Value Reference Range Interpretation Comments PHOSPHORUS (BEAKER) (test code = 6.1 mg/dL 2.3-4.7 H 604) Contract Engineer ID - JAQUELINE [id number] 05:26:00 Test Item Value Reference Range Interpretation Comments MAGNESIUM (BEAKER) (test code = 2.5 mg/dL 1.6-2.6 627) Contract Engineer ID - JAQUELINE MCBC W/PLT COUNT & AUTO [id number] 05:12:00 Test Item Value Reference Range Interpretation [...] PERCENT (BEAKER) (test code = 2801) POCT-GLUCOSE [id number] 21:05:00 Test Item Value Reference Range Interpretation Comments POC-GLUCOSE METER 250 mg/dL 70-110 H : TESTED Vikas Velásquez [facility] 6720 (BEAKER) (test code = DASIA SONG [place], 1538) 66508: Contract Engineer/Techni estefani ID = [id number] for JOLENE HOLLAND SERENA POCT-GLUCOSE [id number] 16:53:00 Test Item Value Reference Range Interpretation Comments POC-GLUCOSE METER 217 mg/dL 70-110 H : TESTED A T [facility] 6720 (BEAKER) (test code = [facility], 1538) 83946: Contract Engineer/Techni estefani ID = [id number] for ENOCH PEREZER, ESTEFANYWITHA POCT-GLUCOSE [id number] 11:50:00 Test Item Value Reference Range Interpretation Comments POC-GLUCOSE METER 208 mg/dL 70-110 H : TESTED A T [facility] 6720 (BEAKER) (test code = [facility], 1538) 11448: Contract Engineer/Techni estefani ID = [id number] for ENOCH PEREZER, ESTEFANYWITHA ANAEROBIC [id number] 10:57:00 Test Item Value Reference Range Interpretation Comments CULTURE (BEAKER) (test code A 4+ Prevotella bivia = 1095) POCT-GLUCOSE [id number] 07:24:00 Test Item Value Reference Range Interpretation Comments POC-GLUCOSE METER 231 mg/dL 70-110 H : TESTED A T [facility] 6720 (BEAKER) (test code = [facility], 1538) 57451: Contract Engineer/Techni estefani ID = [id number] for ENOCH NTER, HIWITHA BASIC METABOLIC [id number] 04:18:00 Test Item Value Reference Range Interpretation [...] S NOT APPLICABLE FOR DIALYSIS PATIEN TS. Contract Engineer ID - BASSEM [id number] 04:17:00 Test Item Value Reference Range Interpretation Comments PHOSPHORUS (BEAKER) (test code = 5.1 mg/dL 2.3-4.7 H 604) Contract Engineer ID - BASSEM [id number] 04:17:00 Test Item Value Reference Range Interpretation Comments MAGNESIUM (BEAKER) (test code = 2.4 mg/dL 1.6-2.6 627) Contract Engineer ID - BASSEM WCBC W/PLT COUNT & AUTO [id number] 04:17:00 Test Item Value Reference Range Interpretation [...] PERCENT (BEAKER) (test code = 2801) POCT-GLUCOSE [id number] 00:03:00 Test Item Value Reference Range Interpretation Comments POC-GLUCOSE METER 245 mg/dL 70-110 H : TESTED A T [facility] 6720 (BEAKER) (test code = [facility], [facility]) [id number]: Contract Engineer/Techni estefani ID = [id number] for FRANCK SKELTON POCT-GLUCOSE [id number] 21:18:00 Test Item Value Reference Range Interpretation Comments POC-GLUCOSE METER 252 mg/dL 70-110 H : TESTED A T [facility] 6720 (BEAKER) (test code = [facility], [facility]) [address]: Contract Engineer/Techni estefani ID = [id number] for DA FLACO KAVYA POCT-GLUCOSE [id number] 16:53:00 Test Item Value Reference Range Interpretation Comments POC-GLUCOSE METER 175 mg/dL 70-110 H : TESTED A T [facility] 6720 (BEAKER) (test code = [facility], [facility]) [address]: Contract Engineer/Techni estefani ID = [id number] for Do minguez, Isaías POCT-GLUCOSE [id number] 13:58:00 Test Item Value Reference Range Interpretation Comments POC-GLUCOSE METER 191 mg/dL 70-110 H : TESTED A T [facility] 6720 (BEAKER) (test code = [facility], 1538) [address]: Contract Engineer/Techni estefani ID = [id number] for Do minguez, Isaías POCT-GLUCOSE [id number] 11:18:00 Test Item Value Reference Range Interpretation Comments POC-GLUCOSE METER 88 mg/dL 70-110 : TESTED A T [facility] 6720 (BEAKER) (test code = [facility] [place], 1538) [address]: Contract Engineer/Techni estefani ID = [id number] for CORNELIUS SANDY HEMODIALYSIS [id number] 08:18:33Melody Meza RN 06/25/2019 11:44 AMTolerated HD [...] HEPBIGM, HEPBCAB, HBEAG, HEPCABNo results found for: [id number] Profile: No results found for: PROTIME, INR, PTTCHI [facility] [id number] 07:59:00 Test Item Value Reference Range Interpretation Comments POC-GLUCOSE METER 112 mg/dL 70-110 H : TESTED A T [facility] 6720 (BEAKER) (test code = DASIA SONG [place], 1538) 39404: Contract Engineer/Techni estefani ID = [id number] for CORNELIUS MAO BASIC METABOLIC [id number] 07:35:00 Test Item Value Reference Range Interpretation [...] S NOT APPLICABLE FOR DIALYSIS PATIEN TS. Contract Engineer ID Benjie BOSCH [id number] 07:27:00 Test Item Value Reference Range Interpretation Comments PHOSPHORUS (BEAKER) (test code = 7.1 mg/dL 2.3-4.7 H 604) Contract Engineer ID - DANITZA [id number] 07:27:00 Test Item Value Reference Range Interpretation Comments MAGNESIUM (BEAKER) (test code = 2.5 mg/dL 1.6-2.6 627) Contract Engineer ID - DANITZA LCBC W/PLT COUNT & AUTO [id number] 06:36:00 Test Item Value Reference Range Interpretation [...] PERCENT (BEAKER) (test code = 2801) POCT-GLUCOSE [id number] 21:42:00 Test Item Value Reference Range Interpretation Comments POC-GLUCOSE METER 171 mg/dL 70-110 H : TESTED A T [facility] 6720 (BEAKER) (test code = [facility], 1538) 54035: Contract Engineer/Techni estefani ID = [id number] for DA KAVYA BRADSHAW POCT-GLUCOSE [id number] 16:53:00 Test Item Value Reference Range Interpretation Comments POC-GLUCOSE METER 219 mg/dL 70-110 H : TESTED A T [facility] 6720 (BEAKER) (test code = [facility], 1538) 15628: Contract Engineer/Techni estefani ID = [id number] for OR DALE URRUTIA POCT-GLUCOSE [id number] 12:15:00 Test Item Value Reference Range Interpretation Comments POC-GLUCOSE METER 181 mg/dL 70-110 H : TESTED A T [facility] 6720 (BEAKER) (test code = [facility], 1538) 02294: Contract Engineer/Techni estefani ID = [id number] for OR RENAN, DALE POCT-GLUCOSE [id number] 08:04:00 Test Item Value Reference Range Interpretation Comments POC-GLUCOSE METER 125 mg/dL 70-110 H : TESTED A T [facility] 6720 (BEAKER) (test code = [facility], 1538) 60958: Contract Engineer/Techni estefani ID = [id number] for OR RENAN, DALE BASIC METABOLIC [id number] 05:56:00 Test Item Value Reference Range Interpretation [...] S NOT APPLICABLE FOR DIALYSIS PATIEN TS. Contract Engineer ID - DANITZA [id number] 05:16:00 Test Item Value Reference Range Interpretation Comments PHOSPHORUS (BEAKER) (test code = 5.7 mg/dL 2.3-4.7 H 604) Contract Engineer ID - DANITZA [id number] 05:16:00 Test Item Value Reference Range Interpretation Comments MAGNESIUM (BEAKER) (test code = 2.4 mg/dL 1.6-2.6 627) Contract Engineer ID - PIAYA LCBC W/PLT COUNT & AUTO [id number] 05:04:00 Test Item Value Reference Range Interpretation [...] PERCENT (BEAKER) (test code = 2801) POCT-GLUCOSE [id number] 21:56:00 Test Item Value Reference Range Interpretation Comments POC-GLUCOSE METER 182 mg/dL 70-110 H : TESTED A T [facility] 6720 (BEAKER) (test code = [facility], 1538) 96787: Contract Engineer/Techni estefani ID = [id number] for Hi ll, Cynthia POCT-GLUCOSE [id number] 17:09:00 Test Item Value Reference Range Interpretation Comments POC-GLUCOSE METER 260 mg/dL 70-110 H : TESTED A T [facility] 6720 (BEAKER) (test code = [facility], 1538) 23287: Contract Engineer/Techni estefani ID = [id number] for OR DALE URRUTIA POCT-GLUCOSE [id number] 12:02:00 Test Item Value Reference Range Interpretation Comments POC-GLUCOSE METER 244 mg/dL 70-110 H : TESTED A T [facility] 6720 (BEAKER) (test code = [facility], 1538) 29946: Contract Engineer/Techni estefani ID = [id number] for OR RENAN DALE BASIC METABOLIC [id number] 08:22:00 Test Item Value Reference Range Interpretation [...] S NOT APPLICABLE FOR DIALYSIS PATIEN TS. Contract Engineer ID - [id number] 07:57:00 Test Item Value Reference Range Interpretation Comments PHOSPHORUS (BEAKER) (test code = 5.4 mg/dL 2.3-4.7 H 604) Contract Engineer ID - [id number] 07:57:00 Test Item Value Reference Range Interpretation Comments MAGNESIUM (BEAKER) (test code = 2.3 mg/dL 1.6-2.6 627) Contract Engineer ID - LMPOCT-GLUCOSE [id number] 07:55:00 Test Item Value Reference Range Interpretation Comments POC-GLUCOSE METER 154 mg/dL 70-110 H : TESTED A T [facility] 6720 (BEAKER) (test code = DASIA SONG [place], 1538) 73339: Contract Engineer/Techni estefani ID = [id number] for OR DALE URRUTIA CBC W/PLT COUNT & AUTO [id number] 06:10:00 Test Item Value Reference Range Interpretation [...] (BEAKER) (test code = 2801) VANCOMYCIN LEVEL, [id number] 06:06:00 Test Item Value Reference Range Interpretation Comments VANCOMYCIN RANDOM (BEAKER) (test 15.8 ug/mL code = 523) Reference Range: No NormalsOperator ID - LMPOCT-GLUCOSE [id number] 21:02:00 Test Item Value Reference Range Interpretation Comments POC-GLUCOSE METER 231 mg/dL 70-110 H : TESTED A T [facility] 6720 (BEAKER) (test code = [facility], 153) 54738: Contract Engineer/Techni estefani ID = [id number] for WESTLEY RONDON POCT-GLUCOSE [id number] 17:06:00 Test Item Value Reference Range Interpretation Comments POC-GLUCOSE METER 227 mg/dL 70-110 H : TESTED A T [facility] 6720 (BEAKER) (test code = [facility], 1538) 27196: Contract Engineer/Techni estefani ID = [id number] for OR DALE URRUTIA POCT-GLUCOSE [id number] 12:13:00 Test Item Value Reference Range Interpretation Comments POC-GLUCOSE METER 147 mg/dL 70-110 H : TESTED A T [facility] 6720 (Shutl) (test code = DASIA Garcia [facility], 1538) 43151: Contract Engineer/Techni estefani ID = [id number] for OR DALE URRUTIA HEMODIALYSIS [id number] 12:02:34Izaiah Brown RN 06/22/2019 12:03 PMHD x 3.5 hrs. UF net removed 2.5L. Tolerated tx well. No complaints, not in distress. Report given to primary RN Michelle. Lab Results Component Value Date WBC 15.3 (H) 06/22/2019 HGB 7.8 (L) 06/22/2019 HCT 25.9 (L) 06/22/2019 MCV 94.9 (H) 06/22/2019 PLT 6617606/22/2019 Lab Results Component Value Date GLUCOSE 133 (H) 06/22/2019 CALCIUM 7.9 (L) 06/22/2019 NA 132 (L) 06/22/2019 K 4.5 06/22/2019 CO2 25 06/22/2019 CL 94 (L) 06/22/2019 BUN 56 (H) 06/22/2019 CREATININE 9.79 (H) 06/22/2019 Lab Results Component Value Date HEPBSAG Nonreactive 06/15/2019 ]No results found for: HEPAIGM, HEPBIGM, HEPBCAB, HBEAG, HEPCABNo results found for: [id number] Profile: No results found for: PROTIME, INR, PTTCHI [facility] [id number] 11:39:00 Test Item Value Reference Range Interpretation Comments POC-GLUCOSE METER 138 mg/dL 70-110 H : TESTED A T [facility] 6720 (Shutl) (test code = DASIA Garcia [facility], 1538) 55286: Contract Engineer/Techni estefani ID = [id number] for Sa arabella Izaiah Weller TISSUE [id number] 09:01:00Surgical Pathology Report Case: [id number] Authorizing Provider: Star Cloud DPM Collected: 06/19/2019 11:18 AM Ordering Location: [facility] Received: 06/19/2019 11:51 AM SERVICES Pathologist: Jonathan Hutchison MD Specimen: Foot, Right, right forefoot PART A RIGHT FOOT, TRANSMETATARSAL AMPUTATION:GANGRENOUS NECROSIS OF SKIN AND SOFT TISSUE.UNDERLYING ACUTE AND CHRONICOSTEOMYELITIS.STATUS POST PRIOR AMPUTATION.BONE AND SOFT TISSUE MARGINS ARE INVOLVED. Signing Pathologist Direct Phone Line: [phone] signed by Jonathan Hutchison MD on 06/22/2019 at 9:01 [id number], [id number] diagnosis: Gangrene, nonhealing wound of right heelA. [...] All three digits display gardner-yellow thickened nails. Teller Manager sections are submitted as follows:Section code: A1, skin and soft tissue margin en faceA2, previous site of amputationA3, skin lesion and underlying affected bone following decalcificationA4-A5, bone margin en face following decalcificationPA/pl PERFORMED.[facility], Department of Pathology, [address] [place] [address], [facility], Department of Pathology, [address] [place] [address], [facility], Department of Pathology, [address] [place] [address] 6[address], QKMS-GLUCOSE [id number] 08:12:00 Test Item Value Reference Range Interpretation Comments POC-GLUCOSE METER 123 mg/dL 70-110 H : TESTED A T [place] [address] (NOE) (test code = DASIA Garcia [facility], 1538) 54540: Contract Engineer/Techni estefani ID = [id number] for Izaiah Barber BASIC METABOLIC [id number] 06:52:00 Test Item Value Reference Range Interpretation [...] S NOT APPLICABLE FOR DIALYSIS PATIEN TS. Contract Engineer ID - BASSEM [id number] 06:51:00 Test Item Value Reference Range Interpretation Comments PHOSPHORUS (BEAKER) (test code = 6.3 mg/dL 2.3-4.7 H 604) Contract Engineer ID - BASSEM [id number] 06:51:00 Test Item Value Reference Range Interpretation Comments MAGNESIUM (BEAKER) (test code = 2.5 mg/dL 1.6-2.6 627) Contract Engineer ID - BASSEM WCBC W/PLT COUNT & AUTO [id number] 06:32:00 Test Item Value Reference Range Interpretation [...] (BEAKER) (test code = 2801) VANCOMYCIN LEVEL, [id number] 06:10:00 Test Item Value Reference Range Interpretation Comments VANCOMYCIN RANDOM (BEAKER) (test 19.5 ug/mL code = 523) Reference Range: No NormalsOperator ID - DBPOCT-GLUCOSE [id number] 21:39:00 Test Item Value Reference Range Interpretation Comments POC-GLUCOSE METER 212 mg/dL 70-110 H : TESTED A T [facility] 6720 (BEAKER) (test code = [facility], 153) 46382: Contract Engineer/Techni estefani ID = [id number] for NOEMI EDMOND POCT-GLUCOSE [id number] 17:03:00 Test Item Value Reference Range Interpretation Comments POC-GLUCOSE METER 192 mg/dL 70-110 H : TESTED A T [facility] 6720 (BEAKER) (test code = [facility], 153) 83948: Contract Engineer/Techni estefani ID = [id number] for HU NTER, HIWITHA POCT-GLUCOSE [id number] 12:20:00 Test Item Value Reference Range Interpretation Comments POC-GLUCOSE METER 191 mg/dL 70-110 H : TESTED A T [facility] 6720 (BEAKER) (test code = [facility], 153) 09241: Contract Engineer/Techni estefani ID = [id number] for CLAUDIA FONTANA SURGICALLY OBTAINED CULTURE + GRAM [id number] 11:27:00 Test Item Value Reference Range Interpretation Comments CULTURE (BEAKER) (test code No growth = 1095) GRAM STAIN RESULT (BEAKER) 3+ WBCs (test code = 1123) GRAM STAIN RESULT (BEAKER) No organisms seen (test code = 45289) SPIN/CONCENTRATION [id number] 08:46:00 Test Item Value Reference Range Interpretation Comments CONCENTRATION CHARGED (BEAKER) (test Done code = 2657) POCT-GLUCOSE [id number] 08:19:00 Test Item Value Reference Range Interpretation Comments POC-GLUCOSE METER 134 mg/dL 70-110 H : TESTED A T [facility] 6720 (BEAKER) (test code = [facility], 153) 57246: Contract Engineer/Techni estefani ID = [id number] for HU NTER, HIWITHA BASIC METABOLIC [id number] 04:44:00 Test Item Value Reference Range Interpretation [...] S NOT APPLICABLE FOR DIALYSIS PATIEN TS. Contract Engineer ID - JAQUELINE [id number] 03:56:00 Test Item Value Reference Range Interpretation Comments PHOSPHORUS (BEAKER) (test code = 6.2 mg/dL 2.3-4.7 H 604) Contract Engineer ID - JAQUELINE [id number] 03:56:00 Test Item Value Reference Range Interpretation Comments MAGNESIUM (BEAKER) (test code = 2.3 mg/dL 1.6-2.6 627) Contract Engineer ID - JAQUELINE MCBC W/PLT COUNT & AUTO [id number] 03:44:00 Test Item Value Reference Range Interpretation [...] PERCENT (BEAKER) (test code = 2801) POCT-GLUCOSE [id number] 20:47:00 Test Item Value Reference Range Interpretation Comments POC-GLUCOSE METER 234 mg/dL 70-110 H : TESTED A T [facility] 6720 (BEAKER) (test code = [facility], 153) 82202: Contract Engineer/Techni estefani ID = [id number] for EA GLIN, JALISSIA POCT-GLUCOSE [id number] 17:12:00 Test Item Value Reference Range Interpretation Comments POC-GLUCOSE METER 192 mg/dL 70-110 H : TESTED A T [facility] 6720 (BEAKER) (test code = [facility], 153) 02221: Contract Engineer/Techni estefani ID = [id number] for HU NTER, HIWITHA POCT-GLUCOSE [id number] 12:35:00 Test Item Value Reference Range Interpretation Comments POC-GLUCOSE METER 138 mg/dL 70-110 H : TESTED A T [facility] 6720 (BEAKER) (test code = [facility], 1538) 34582: Contract Engineer/Techni estefani ID = [id number] for ZOILA SILVA POCT-GLUCOSE [id number] 10:12:00 Test Item Value Reference Range Interpretation Comments POC-GLUCOSE METER 101 mg/dL 70-110 : TESTED A T [facility] 6720 (BEAKER) (test code = [facility], 1538) 08900: Contract Engineer/Techni estefani ID = [id number] for Bassem Desai POCT-GLUCOSE [id number] 08:51:00 Test Item Value Reference Range Interpretation Comments POC-GLUCOSE METER 96 mg/dL 70-110 : TESTED A T [facility] 6720 (BEAKER) (test code = [facility], 1538) 43907: Contract Engineer/Techni estefani ID = [id number] for Bassem House BASIC METABOLIC [id number] 05:04:00 Test Item Value Reference Range Interpretation [...] S NOT APPLICABLE FOR DIALYSIS PATIEN TS. Contract Engineer ID - PIAYA LVANCOMYCIN LEVEL, [id number] 04:56:00 Test Item Value Reference Range Interpretation Comments VANCOMYCIN RANDOM (BEAKER) (test 18.7 ug/mL code = 523) Reference Range: No NormalsOperator ID - DANITZA [id number] 04:49:00 Test Item Value Reference Range Interpretation Comments PHOSPHORUS (BEAKER) (test code = 8.4 mg/dL 2.3-4.7 H 604) Contract Engineer ID - DANITZA [id number] 04:49:00 Test Item Value Reference Range Interpretation Comments MAGNESIUM (BEAKER) (test code = 2.5 mg/dL 1.6-2.6 627) Contract Engineer ID - DANITZA LCBC W/PLT COUNT & AUTO [id number] 04:22:00 Test Item Value Reference Range Interpretation [...] code = 2801) RAD, FOOT, 2 VIEWS, [id number] 22:40:00Reason for exam:->post op TMA rightFINAL REPORT [...] is no radiopaque foreign body. Signed: Mirta Montanez MDReport Verified Date/Time: 06/19/2019 22:40:02 Electro nically signed by: MIRTA MONTANEZ M.D. on 06/19/2019 10:40 PMPOCT-GLUCOSE METER 2019-06-19 21:19:00 Test Item Value Reference Range Interpretation Comments POC-GLUCOSE METER 221 mg/dL 70-110 H : TESTED A T [facility] 6720 (BEAKER) (test code = [place], 1538) 85827: Contract Engineer/Techni estefani ID = [id number] for KAVYA WHITMORE POCT-GLUCOSE [id number] 21:06:00 Test Item Value Reference Range Interpretation Comments POC-GLUCOSE METER 214 mg/dL 70-110 H : TESTED A T [facility] 6720 (BEInaura) (test code = [facility], [facility]) 24389: Contract Engineer/Techni estefani ID = [id number] for RENEE BOONE, BLESSING POCT-GLUCOSE [id number] 21:05:00 Test Item Value Reference Range Interpretation Comments POC-GLUCOSE METER 131 mg/dL 70-110 H : TESTED A T [facility] 6720 (BEAKER) (test code = [facility], [facility]) 05215: Contract Engineer/Techni estefani ID = [id number] for RENEE HN, BLESSING POCT-GLUCOSE [id number] 21:05:00 Test Item Value Reference Range Interpretation Comments POC-GLUCOSE METER 131 mg/dL 70-110 H : TESTED A T [facility] 6720 (BEAKER) (test code = [facility], [facility]) 80431: Contract Engineer/Techni estefani ID = [id number] for RENEE BOONE, BLESSING POCT-GLUCOSE [id number] 12:01:00 Test Item Value Reference Range Interpretation Comments POC-GLUCOSE METER 135 mg/dL 70-110 H : TESTED A T [facility] 6720 (BEAKER) (test code = [facility], [facility]) 50375: Contract Engineer/Techni estefani ID = [id number] for GABRIELA OLMSTEAD POCT-GLUCOSE [id number] 09:10:00 Test Item Value Reference Range Interpretation Comments POC-GLUCOSE METER 200 mg/dL 70-110 H : TESTED A T [facility] 6720 (BEAKER) (test code = [facility], [facility]) 50856: Contract Engineer/Techni estefani ID = [id number] for FRANCK SKELTON CBC W/PLT COUNT & AUTO [id number] 05:34:00 Test Item Value Reference Range Interpretation [...] (BEAKER) (test code = 2801) BASIC METABOLIC [id number] 05:28:00 Test Item Value Reference Range Interpretation [...] S NOT APPLICABLE FOR DIALYSIS PATIEN TS. Contract Engineer ID - BASSEM [id number] 05:27:00 Test Item Value Reference Range Interpretation Comments PHOSPHORUS (BEAKER) (test code = 6.7 mg/dL 2.3-4.7 H 604) Contract Engineer ID - BASSEM [id number] 05:27:00 Test Item Value Reference Range Interpretation Comments MAGNESIUM (BEAKER) (test code = 2.3 mg/dL 1.6-2.6 627) Contract Engineer ID - BASSEM WVANCOMYCIN LEVEL, [id number] 05:25:00 Test Item Value Reference Range Interpretation Comments VANCOMYCIN RANDOM (BEAKER) (test 21.5 ug/mL code = 523) Reference Range: No NormalsOperator ID Benjie LUEVANO WPOCT-GLUCOSE [id number] 17:28:00 Test Item Value Reference Range Interpretation Comments POC-GLUCOSE METER 173 mg/dL 70-110 H : TESTED A T [facility] 6720 (BEAKER) (test code = [facility], 1538) 17445: Contract Engineer/Techni estefani ID = [id number] for OR PHEY, DALE POCT-GLUCOSE [id number] 14:19:00 Test Item Value Reference Range Interpretation Comments POC-GLUCOSE METER 133 mg/dL 70-110 H : TESTED A T [facility] 6720 (BEAKER) (test code = [facility], 1538) 47529: Contract Engineer/Techni estefani ID = [id number] for OR PHEY, DALE POCT-GLUCOSE [id number] 10:35:00 Test Item Value Reference Range Interpretation Comments POC-GLUCOSE METER 119 mg/dL 70-110 H : TESTED A T [facility] 6720 (BEAKER) (test code = DASIA Garcia [place], 1538) 00146: Contract Engineer/Techni estefani ID = [id number] for Sonya Christian CBC W/PLT COUNT & AUTO [id number] 05:31:00 Test Item Value Reference Range Interpretation [...] (BEAKER) (test code = 2801) BASIC METABOLIC [id number] 05:17:00 Test Item Value Reference Range Interpretation [...] S NOT APPLICABLE FOR DIALYSIS PATIEN TS. Contract Engineer ID - JAQUELINE [id number] 05:16:00 Test Item Value Reference Range Interpretation Comments PHOSPHORUS (BEAKER) (test code = 7.5 mg/dL 2.3-4.7 H 604) Contract Engineer ID - JAQUELINE [id number] 05:16:00 Test Item Value Reference Range Interpretation Comments MAGNESIUM (BEAKER) (test code = 2.4 mg/dL 1.6-2.6 627) Contract Engineer ID - JAQUELINE MVANCOMYCIN LEVEL, [id number] 05:04:00 Test Item Value Reference Range Interpretation Comments VANCOMYCIN TROUGH (BEAKER) (test 25.9 ug/mL 10.0-20.0 H code = 522) Contract Engineer ID - JAQUELINE MPOCT-GLUCOSE [id number] 21:00:00 Test Item Value Reference Range Interpretation Comments POC-GLUCOSE METER 148 mg/dL 70-110 H : TESTED A T [facility] 6720 (BEAKER) (test code = [facility], 1538) 92336: Contract Engineer/Techni estefani ID = [id number] for RO SERENA HOLLAND POCT-GLUCOSE [id number] 19:14:00 Test Item Value Reference Range Interpretation Comments POC-GLUCOSE METER 137 mg/dL 70-110 H : TESTED A T [facility] 6720 (BEAKER) (test code = [facility], 1538) 54413: Contract Engineer/Techni estefani ID = [id number] for CAMILLE BETTS POCT-GLUCOSE [id number] 17:46:00 Test Item Value Reference Range Interpretation Comments POC-GLUCOSE METER 205 mg/dL 70-110 H : TESTED A T [facility] 6720 (BEAKER) (test code = [facility], 1538) 47166: Contract Engineer/Techni estefani ID = [id number] for CAMILLE BETTS POCT-GLUCOSE [id number] 17:05:00 Test Item Value Reference Range Interpretation Comments POC-GLUCOSE METER 197 mg/dL 70-110 H : TESTED A T [facility] 6720 (BEAKER) (test code = [facility], 1538) 26851: Contract Engineer/Techni estefani ID = [id number] for CAMILLE BETTS BASIC METABOLIC [id number] 05:57:00 Test Item Value Reference Range Interpretation [...] S NOT APPLICABLE FOR DIALYSIS PATIEN TS. Contract Engineer ID - DANITZA [id number] 05:54:00 Test Item Value Reference Range Interpretation Comments PHOSPHORUS (BEAKER) (test code = 6.2 mg/dL 2.3-4.7 H 604) Contract Engineer ID - DANITZA [id number] 05:54:00 Test Item Value Reference Range Interpretation Comments MAGNESIUM (BEAKER) (test code = 2.2 mg/dL 1.6-2.6 627) Contract Engineer ID - DANITZA LCBC W/PLT COUNT & AUTO [id number] 05:44:00 Test Item Value Reference Range Interpretation [...] PERCENT (BEAKER) (test code = 2801) POCT-GLUCOSE [id number] 21:37:00 Test Item Value Reference Range Interpretation Comments POC-GLUCOSE METER 262 mg/dL 70-110 H : TESTED A T [facility] 6720 (BEAKER) (test code = [facility], 153) 86236: Contract Engineer/Techni estefani ID = [id number] for DA VIS, KAVYA POCT-GLUCOSE [id number] 16:44:00 Test Item Value Reference Range Interpretation Comments POC-GLUCOSE METER 203 mg/dL 70-110 H : TESTED A T [facility] 6720 (BEAKER) (test code = [facility], 153) 48091: Contract Engineer/Techni estefani ID = [id number] for ZA VALA, ERANDY POCT-GLUCOSE [id number] 12:05:00 Test Item Value Reference Range Interpretation Comments POC-GLUCOSE METER 233 mg/dL 70-110 H : TESTED A T [facility] 6720 (BEAKER) (test code = [facility], 153) 61531: Contract Engineer/Techni estefani ID = [id number] for HU NTER, HIWITHA POCT-GLUCOSE [id number] 08:18:00 Test Item Value Reference Range Interpretation Comments POC-GLUCOSE METER 146 mg/dL 70-110 H : TESTED Vikas Velásquez [facility] 6720 (BEAKER) (test code = [place], 1538) 90507: Contract Engineer/Techni estefani ID = [id number] for ENOCH NTSYLVIA, ESTEFANYWITHA CBC W/PLT COUNT & AUTO [id number] 07:32:00 Test Item Value Reference Range Interpretation [...] CONCENTRATION Adequate (CELLAVISION)(BEAKER) (test code = 3438) Contract Engineer ID - Daily OverholtUser comments: Slide comments:BASIC METABOLIC PANEL 2019-06-16 [...] S NOT APPLICABLE FOR DIALYSIS PATIEN TS. Contract Engineer ID - JAQUELINE [id number] 06:29:00 Test Item Value Reference Range Interpretation Comments PHOSPHORUS (BEAKER) (test code = 4.9 mg/dL 2.3-4.7 H 604) Contract Engineer ID - JAQUELINE [id number] 06:29:00 Test Item Value Reference Range Interpretation Comments MAGNESIUM (BEAKER) (test code = 2.2 mg/dL 1.6-2.6 627) Contract Engineer ID - JAQUELINE MVANCOMYCIN LEVEL, [id number] 06:23:00 Test Item Value Reference Range Interpretation Comments VANCOMYCIN RANDOM (BEAKER) (test 31.1 ug/mL code = 523) Reference Range: No NormalsOperator ID - JAQUELINE MPOCT-GLUCOSE [id number] 21:18:00 Test Item Value Reference Range Interpretation Comments POC-GLUCOSE METER 233 mg/dL 70-110 H : TESTED A T [facility] 6720 (Shutl) (test code = [facility], 153) 10347: Contract Engineer/Techni estefani ID = [id number] for DA VIS, KAVYA POCT-GLUCOSE [id number] 17:24:00 Test Item Value Reference Range Interpretation Comments POC-GLUCOSE METER 252 mg/dL 70-110 H : TESTED A T [facility] 67[facility] (BEInaura) (test code = [facility], 153) 79916: Contract Engineer/Techni estefani ID = [id number] for HU NTSYLVIA, ESTEFANYWITHA POCT-GLUCOSE [id number] 17:24:00 Test Item Value Reference Range Interpretation Comments POC-GLUCOSE METER 124 mg/dL 70-110 H : TESTED A T [facility] 67[facility] (BEAKER) (test code = [facility], 1538) [id number]: Contract Engineer/Techni estefani ID = [id number] for ZOILA SILVA [id number] 12:41:00 Test Item Value Reference Range Interpretation Comments ACTIVATED CLOTTING TIME 241 sec : 74 -137 seconds, (BEAKER) (test code = Amadeo ne: TESTED AT 441) [facility] [address] [facility], 770 30: Contract Engineer/Techni estefani ID = [id number] for CRYSTAL SHAH HEPATITIS B SURFACE [id number] 04:57:00 Test Item Value Reference Range Interpretation Comments HEPATITIS B SURFACE ANTIGEN (2) Nonreactive Nonreactive (BEAKER) (test code = 2585) Contract Engineer ID - LMBASIC METABOLIC [id number] 04:38:00 Test Item Value Reference Range Interpretation [...] S NOT APPLICABLE FOR DIALYSIS PATIEN TS. Contract Engineer ID - BASSEM [id number] 04:37:00 Test Item Value Reference Range Interpretation Comments PHOSPHORUS (BEAKER) (test code = 5.6 mg/dL 2.3-4.7 H 604) Contract Engineer ID - BASSEM [id number] 04:37:00 Test Item Value Reference Range Interpretation Comments MAGNESIUM (BEAKER) (test code = 2.2 mg/dL 1.6-2.6 627) Contract Engineer SAVANNA LUEVANO WCBC W/PLT COUNT & AUTO [id number] 04:34:00 Test Item Value Reference Range Interpretation [...] PERCENT (BEAKER) (test code = 2801) POCT-GLUCOSE [id number] 22:31:00 Test Item Value Reference Range Interpretation Comments POC-GLUCOSE METER 203 mg/dL 70-110 H : TESTED A T [facility] 6720 (BEAKER) (test code [facility], = 1538) [id number]: Contract Engineer/Techni estefain ID = [id number] for Emma Leyva POCT-GLUCOSE [id number] 21:30:00 Test Item Value Reference Range Interpretation Comments POC-GLUCOSE METER 205 mg/dL 70-110 H : TESTED A T [facility] 6720 (BEAKER) (test code = [facility], 1538) 34138: Contract Engineer/Techni estefani ID = [id number] for ARLEN ADAN POCT-GLUCOSE [id number] 16:56:00 Test Item Value Reference Range Interpretation Comments POC-GLUCOSE METER 210 mg/dL 70-110 H : TESTED A T [facility] 6720 (BEAKER) (test code = [facility], 1538) [id number]: Contract Engineer/Techni estefani ID = [id number] for MATEUS ROBLES RAD, FOOT, MIN 3 VIEWS, [id number] 15:36:00Reason for exam:->Right foot gangrene, 2nd toe [...] MDReport Verified Date/Time: 06/14/2019 15:36:18 Reading Location: [facility] C0X Ortho Consult Reading Room BASIC METABOLIC [id number] 15:34:00 Test Item Value Reference Range Interpretation [...] S NOT APPLICABLE FOR DIALYSIS PATIEN TS. Contract Engineer ID - [id number] 15:33:00 Test Item Value Reference Range Interpretation Comments PHOSPHORUS (BEAKER) (test code = 4.8 mg/dL 2.3-4.7 H 604) Contract Engineer ID - [id number] 15:33:00 Test Item Value Reference Range Interpretation Comments MAGNESIUM (BEAKER) (test code = 2.2 mg/dL 1.6-2.6 627) Contract Engineer ID - BSCBC W/PLT COUNT & AUTO [id number] 15:20:00 Test Item Value Reference Range Interpretation [...] PERCENT (BEAKER) (test code = 2801) POCT-GLUCOSE [id number] 12:22:00 Test Item Value Reference Range Interpretation Comments POC-GLUCOSE METER 242 mg/dL 70-110 H : TESTED Vikas Velásquez [facility] 6720 (BEAKER) (test code = [facility] [place], 1538) [id number]: Contract Engineer/Techni estefani ID = [id number] for MATEUS ROBLES POCT-GLUCOSE [id number] 12:16:00 Test Item Value Reference Range Interpretation Comments POC-GLUCOSE METER 206 mg/dL 70-110 H : TESTED A T [facility] 6720 ([facility]) (test code = [facility] [place], 1538) [id number]: Contract Engineer/Techni estefani ID = [id number] for MATEUS ROBLES
--- NOTE | 2020-06-21 16:52 | ER ---
Nurse's Notes [facility] Name: Dayton Grijalva Age: 59 yrs Sex: Male : 1960 Arrival Date: 06/21/2020 Time: 14:58 Bed 12 Private MD: Tiot Duval E Diagnosis: Retention of urine, unspecified-pvr 650 cc;End stage renal disease-ON HEMODIAYSIS Presentation: 06/21 15:18 Chief complaint: Patient's son or daughter states: Has not been able to urinate x 2 ca1 days now. Denies pain at this time. Pt is on dialysis MWF but still able to produce urine. Coronavirus screen: Client denies travel out of the [place] in the last 14 days. At this time, the client does not indicate any symptoms associated with coronavirus-19. Ebola Screen: Patient negative for fever greater than or equal to 101.5 degrees Fahrenheit, and additional compatible Ebola Virus Disease symptoms Patient denies exposure to infectious person. Patient denies travel to an Ebola-affected area in the 21 days before illness onset. No symptoms or risks identified at this time. Initial Sepsis Screen: Does the patient meet any 2 criteria? No. Patient's initial sepsis screen is negative. Does the patient have a suspected source of infection? No. Patient's initial sepsis screen is negative. Risk Assessment: Do you want to hurt yourself or someone else? Patient reports no desire to harm self or others. Onset of symptoms was June 21, 2020. 15:18 Method Of Arrival: Wheelchair ca1 15:18 Acuity: SAMARA 4 ca1 Historical: - Allergies: 15:23 No Known Allergies; ca1 - PMHx: 15:23 Diabetes - IDDM; HD-MWF; Hypertension; ca1 - PSHx: 15:23 Heart Surgery; amputation of R toes; amputation L toes; CABG; ca1 - Immunization history:: Flu vaccine is up to date. - Social history:: Smoking status: Patient denies any tobacco usage or history of. - Family history:: not pertinent. Screenin:15 Abuse screen: Denies threats or abuse. Denies injuries from another. Nutritional ca1 screening: No deficits noted. Tuberculosis screening: No symptoms or risk factors identified. Fall Risk Secondary diagnosis (15 points) impaired mobility, Ambulatory Aid- Crutches/Cane/Walker (15 pts). Total Masters Fall Scale indicates Low Risk Score (25-44 pts). Fall prevention measures have been instituted. Side Rails Up X 2 Family Present and informed to notify staff if they need to leave bedside As available Patient and Family Educated on Fall Prevention Program and strategies. Assessment: 16:15 General: Appears in no apparent distress. comfortable, Behavior is calm, cooperative, ca1 appropriate for age. Pain: Denies pain. Neuro: Level of Consciousness is awake, alert, obeys commands, Oriented to person, place, time. : Urine is clear, Reports inability to void, since 2 days SPINNER TENDER Parent/caregiver report the patient having. EENT: No signs and/or symptoms were reported regarding the EENT system. Derm: Skin is intact, is healthy with good turgor, Skin is pink, warm \T\ dry. Musculoskeletal: Amputation of with wound vac dressing intact and dry Circulation, motion, and sensation intact. Capillary refill < 3 seconds. 17:10 Reassessment: Patient appears in no apparent distress at this time. Patient is alert, ca1 oriented x 3, equal unlabored respirations, skin warm/dry/pink. Patient states feeling better. Vital Signs: 15:18 BP 116 / 69; Pulse 59; Resp 16 S; Temp 97.5; Pulse Ox 100% ; Weight 84.82 kg (R); ca1 Height 6 ft. 0 in. (182.88 cm) (R); Pain 0/10; 17:10 BP 132 / 70; Pulse 58; Resp 16 S; Pulse Ox 100% on R/A; ca1 15:18 Body Mass Index 25.36 (84.82 kg, 182.88 cm) ca1 ED Course: 14:58 Patient arrived in ED. am2 14:58 Tito Duval MD is Private Physician. am2 15:21 Triage completed. ca1 15:23 Arm band placed on right wrist. ca1 16:07 Dario Clinton MD is Attending Physician. mary 16:10 Ruby Sandoval, SUNITA is Primary Nurse. ca1 16:15 Patient has correct armband on for positive identification. Placed in gown. Side rails ca1 up X 1. Pulse ox on. NIBP on. 16:32 Bladder scan completed. 685. ca1 16:33 Szymanski cath inserted, using sterile technique, 16 Fr., by pr, balloon inflated, to ca1 gravity drainage, urine specimen collected. returned clear yellow urine. Patient tolerated well. 16:33 No provider procedures requiring assistance completed. ca1 16:45 Urine Culture Sent. ca1 16:51 Tito Duval MD is Referral Physician. mary 16:51 Papi Montanez MD is Referral Physician. mary 17:11 Patient did not have IV access during this emergency room visit. ca1 Administered Medications: No medications were administered Outcome: 16:52 Discharge ordered by . mary 17:11 Discharged to home via wheelchair, with family. ca1 17:11 Condition: stable 17:11 Discharge instructions given to patient, family, Instructed on discharge instructions, follow up and referral plans. medication usage, Demonstrated understanding of instructions, follow-up care, medications, Prescriptions given X 2. 17:11 Patient left the ED. ca1 Signatures: Dario Clinton MD MD cha Moreno, Amanda am2 Ruby Sandoval RN RN ca1 Corrections: (The following items were deleted from the chart) 16:47 16:15 Musculoskeletal: Circulation, motion, and sensation intact. Capillary refill < 3 ca1 seconds, ca1
--- NOTE | 2020-06-21 16:52 | EDPHYS ---
Physician Documentation [facility] Name: Dayton Grijalva Age: 59 yrs Sex: Male : 1960 Arrival Date: 06/21/2020 Time: 14:58 Bed 12 Private MD: Tito Duval E ED Physician Dario Clinton HPI: 06/21 16:46 This 59 yrs old Male presents to ER via Wheelchair with complaints of Urinary mary Retention. 16:46 The patient presents with urinary symptoms, retention. Onset: The symptoms/episode mary began/occurred 2 day(s) ago. Modifying factors: The symptoms are alleviated by nothing, the symptoms are aggravated by nothing. Associated signs and symptoms: The patient has no apparent associated signs or symptoms. Severity of symptoms: At their worst the symptoms were mild, in the emergency department the symptoms are unchanged. The patient has not experienced similar symptoms in the past. Historical: - Allergies: 15:23 No Known Allergies; ca1 - PMHx: 15:23 Diabetes - IDDM; HD-MWF; Hypertension; ca1 - PSHx: 15:23 Heart Surgery; amputation of R toes; amputation L toes; CABG; ca1 - Immunization history:: Flu vaccine is up to date. - Social history:: Smoking status: Patient denies any tobacco usage or history of. - Family history:: not pertinent. ROS: 16:46 Constitutional: Negative for fever, chills, and weight loss, Eyes: Negative for injury, mary pain, redness, and discharge, ENT: Negative for injury, pain, and discharge, Neck: Negative for injury, pain, and swelling, Cardiovascular: Negative for chest pain, palpitations, and edema, Respiratory: Negative for shortness of breath, cough, wheezing, and pleuritic chest pain, Abdomen/GI: Negative for abdominal pain, nausea, vomiting, diarrhea, and constipation, Back: Negative for injury and pain, MS/Extremity: Negative for injury and deformity, Skin: Negative for injury, rash, and discoloration, Neuro: Negative for headache, weakness, numbness, tingling, and seizure, Psych: Negative for depression, anxiety, suicide ideation, homicidal ideation, and hallucinations, Allergy/Immunology: Negative for hives, rash, and allergies, Endocrine: Negative for neck swelling, polydipsia, polyuria, polyphagia, and marked weight changes, Hematologic/Lymphatic: Negative for swollen nodes, abnormal bleeding, and unusual bruising. 16:46 : Positive for urinary symptoms, difficulty urinating. Exam: 16:46 Constitutional: This is a well developed, well nourished patient who is awake, alert, mary and in no acute distress. Head/Face: Normocephalic, atraumatic. Eyes: Pupils equal round and reactive to light, extra-ocular motions intact. Lids and lashes normal. Conjunctiva and sclera are non-icteric and not injected. Cornea within normal limits. Periorbital areas with no swelling, redness, or edema. ENT: Nares patent. No nasal discharge, no septal abnormalities noted. Tympanic membranes are normal and external auditory canals are clear. Oropharynx with no redness, swelling, or masses, exudates, or evidence of obstruction, uvula midline. Mucous membranes moist. Neck: Trachea midline, no thyromegaly or masses palpated, and no cervical lymphadenopathy. Supple, full range of motion without nuchal rigidity, or vertebral point tenderness. No Meningismus. Chest/axilla: Normal chest wall appearance and motion. Nontender with no deformity. No lesions are appreciated. Cardiovascular: Regular rate and rhythm with a normal S1 and S2. No gallops, murmurs, or rubs. Normal PMI, no JVD. No pulse deficits. Respiratory: Lungs have equal breath sounds bilaterally, clear to auscultation and percussion. No rales, rhonchi or wheezes noted. No increased work of breathing, no retractions or nasal flaring. Back: No spinal tenderness. No costovertebral tenderness. Full range of motion. Skin: Warm, dry with normal turgor. Normal color with no rashes, no lesions, and no evidence of cellulitis. MS/ Extremity: Pulses equal, no cyanosis. Neurovascular intact. Full, normal range of motion. Neuro: Awake and alert, GCS 15, oriented to person, place, time, and situation. Cranial nerves II-XII grossly intact. Motor strength 5/5 in all extremities. Sensory grossly intact. Cerebellar exam normal. Normal gait. Psych: Awake, alert, with orientation to person, place and time. Behavior, mood, and affect are within normal limits. 16:46 Abdomen/GI: Inspection: abdomen appears normal, Bowel sounds: normal, Palpation: nontender, Liver: no appreciated palpable abnormalities, Hernia: not appreciated. Vital Signs: 15:18 BP 116 / 69; Pulse 59; Resp 16 S; Temp 97.5; Pulse Ox 100% ; Weight 84.82 kg (R); ca1 Height 6 ft. 0 in. (182.88 cm) (R); Pain 0/10; 17:10 BP 132 / 70; Pulse 58; Resp 16 S; Pulse Ox 100% on R/A; ca1 15:18 Body Mass Index 25.36 (84.82 kg, 182.88 cm) ca1 MDM: 16:07 Patient medically screened. [facility] 16:50 Differential diagnosis: UTI, urinary retention, prostatitis, urethritis. Data reviewed: [facility] vital signs, nurses notes, lab test result(s), urinalysis. Data interpreted: court recording monitor: not applicable for this patient encounter. rate is 59 beats/min, Pulse oximetry: on room air is 100 %. Test interpretation: by ED physician or midlevel provider:. Counseling: I had a detailed discussion with the patient and/or guardian regarding: the historical points, exam findings, and any diagnostic results supporting the discharge/admit diagnosis, lab results, the need for outpatient follow up, for definitive care, a family practitioner, a urologist. 06/21 16:12 Order name: Urine Culture [facility] 06/21 16:11 Order name: Bladder Scanner; Complete Time: 16:32 [facility] 06/21 16:11 Order name: Szymanski: IF PVR GREATER THAN 100; Complete Time: 16:32 [facility] 06/21 16:11 Order name: Szymanski Leg Bag; Complete Time: 16:45 [facility] 06/21 16:12 Order name: Urine Dipstick-Ancillary (obtain specimen); Complete Time: 16:45 [facility] Administered Medications: No medications were administered Disposition: 06/21/20 16:52 Discharged to Home. Impression: Retention of urine, unspecified - pvr 650 cc, End stage renal disease - ON HEMODIAYSIS. - Condition is Stable. - Discharge Instructions: Acute Urinary Retention, Male, Dialysis, Acute Urinary Retention, Male, Jikp-db-Awmg, Dialysis Diet, Chda-ti-Aezj. - Prescriptions for Cipro 250 mg Oral Tablet - take 1 tablet by ORAL route every 12 hours; 6 tablet. Flomax 0.4 mg Oral Capsule, Sust. Release 24 hr - take 1 capsule by ORAL route once daily 1/2 hour following the same meal each day; 30 capsule. - Medication Reconciliation Form, Thank You Letter, Antibiotic Education, Prescription Opioid Use form. - Follow up: Tito Duval MD; When: 2 - 3 days; Reason: Recheck today's complaints, Continuance of care, Re-evaluation by your physician. Follow up: Papi Montanez MD; When: 2 - 3 days; Reason: Recheck today's complaints, Re-evaluation by your physician. - Problem is new. - Symptoms have improved. Signatures: Dispatcher [employer] EDIN Dario Clinton MD MD cha Acob, Cheryl RN RN ca1 Corrections: (The following items were deleted from the chart) 17:11 16:52 06/21/2020 16:52 Discharged to Home. Impression: Retention of urine, unspecified ca1 - pvr 650 cc; End stage renal disease - ON HEMODIAYSIS. Condition is Stable. Forms are Medication Reconciliation Form, Thank You Letter, Antibiotic Education, Prescription Opioid Use. Follow up: Tito Duval; When: 2 - 3 days; Reason: Recheck today's complaints, Continuance of care, Re-evaluation by your physician. Follow up: Papi Montanez; When: 2 - 3 days; Reason: Recheck today's complaints, Re-evaluation by your physician. Problem is new. Symptoms have improved. mary
[2020-06-21 17:16] VITALS: TEMP 97.5; O2SAT 100
[2020-06-21 17:18] VITALS: BP 132/70
[2020-06-24 14:45] LABS: Urine Blood 1+ (Negative); Urine Glucose Trace (Negative); Urine Protein 3+ (Negative); Urine pH 8.5 (5.0-7.0)
== END 2020-06-21 17:11 | disposition home or self-care (01) ==
LOC: ER 14:57
DX: R33.9 Retention of urine, unspecified (principal); E11.22 Type 2 diabetes mellitus with diabetic chronic kidney disease; N18.6 End stage renal disease; Z99.2 Dependence on renal dialysis; I12.0 Hypertensive chronic kidney disease with stage 5 chronic kidney disease or end stage renal disease; Z95.1 Presence of aortocoronary bypass graft; Z89.421 Acquired absence of other right toe(s); Z89.422 Acquired absence of other left toe(s)
CPT/HCPCS: 51702; 81003; 87086; 87088; 99284

== ENCOUNTER 2021-01-05 15:43 | Emergency (ER) | payer OTHER ==
--- NOTE | 2021-01-05 21:11 | EDPHYS ---
Physician Documentation [facility] Name: Dayton Grijalva Age: 60 yrs Sex: Male : 1960 Arrival Date: 01/05/2021 Time: 15:43 Bed 20 Private MD: ED Physician Dario Clinton HPI: 01/05 19:45 This 60 yrs old Male presents to ER via Wheelchair with complaints of Urinary cp Problem. 19:45 Patient brought to ED with concern for possible urinary retention. Son reports cp observing that patient has only urinating small amount today. Patient does have history of ESRD and was last dialyzed today. Son also reports patient has in the past retained urine due to enlarged prostate. No other complaints expressed. Historical: - Allergies: 16:07 No Known Allergies; ll1 - PMHx: 16:07 Diabetes - IDDM; HD-MWF; Hypertension; ll1 - PSHx: 16:07 open heart surgery; R foot partial amputation; ll1 - Immunization history:: Client reports receiving the 2nd dose of the Covid vaccine. - Social history:: Smoking status: Patient denies any tobacco usage or history of. ROS: 19:50 Constitutional: Negative for body aches, chills, fever, poor PO intake. cp 19:50 ENT: Negative for ear pain, sore throat, difficulty swallowing, difficulty handling cp secretions. 19:50 Cardiovascular: Negative for chest pain. 19:50 Respiratory: Negative for cough, shortness of breath, wheezing. 19:50 Abdomen/GI: Negative for abdominal pain, nausea, vomiting, and diarrhea. 19:50 Back: Negative for pain at rest, pain with movement. 19:50 : Positive for small amounts, Negative for burning with urination, testicular pain 19:50 Neuro: Negative for altered mental status, headache, weakness. 19:50 All other systems are negative. Exam: 19:55 Constitutional: The patient appears in no acute distress, alert, awake, cp non-diaphoretic, non-toxic, well developed, well nourished. 19:55 Head/Face: Normocephalic, atraumatic. cp 19:55 Chest/axilla: Inspection: normal. 19:55 Cardiovascular: Rate: normal, Rhythm: regular. 19:55 Respiratory: the patient does not display signs of respiratory distress, Respirations: normal, no use of accessory muscles, no retractions, labored breathing, is not present. 19:55 Abdomen/GI: Inspection: abdomen appears normal, Bowel sounds: active, all quadrants, Palpation: abdomen is soft and non-tender, in all quadrants. 19:55 Back: CVA tenderness, is absent. 19:55 Neuro: Orientation: to person, place \T\ time. Mentation: is normal. Vital Signs: 16:08 BP 163 / 95; Pulse 72; Resp 17; Temp 97.8; Pulse Ox 100% ; Weight 86.18 kg; Height 6 ll1 ft. 0 in. (182.88 cm); Pain 0/10; 19:28 BP 113 / 77; Pulse 72; Resp 18; Pulse Ox 96% ; ll1 20:23 BP 205 / 100; Pulse 68; Resp 20; Pulse Ox 99% on R/A; cc4 20:30 BP 214 / 99; Pulse 68; Resp 20; Pulse Ox 98% on R/A; cc4 21:13 BP 179 / 90; Pulse 70; Resp 20; Temp 97.9; Pulse Ox 97% on R/A; cc4 16:08 Body Mass Index 25.77 (86.18 kg, 182.88 cm) ll1 19:28 fingerstick 125 ll1 MDM: 19:40 Patient medically screened. [facility] 21:10 Data reviewed: vital signs, nurses notes. 21:10 Differential diagnosis: UTI, urinary retention, hypertensive crisis. Counseling: I had cp a detailed discussion with the patient and/or guardian regarding: the historical points, exam findings, and any diagnostic results supporting the discharge/admit diagnosis, to return to the emergency department if symptoms worsen or persist or if there are any questions or concerns that arise at home. ED course: Bladder scan performed showing 60 ccs of urine in bladder. Will discharge to home for continued monitoring. 01/05 19:44 Order name: Glucose, Ancillary Testing; Complete Time: 19:46 EDMS 01/05 19:35 Order name: Bladder Scanner: pre and post void; Complete Time: 20:48 cp Administered Medications: 20:45 Drug: cloNIDine 0.2 mg Route: PO; cc4 21:13 Follow up: Response: No adverse reaction; Blood pressure is lowered cc4 Disposition: 21:20 Chart complete. cp 01/06 11:40 Co-signature as Attending Physician, Dario Clinton MD I agree with the assessment and mary plan of care. Disposition Summary: 01/05/21 21:11 Discharge Ordered Location: Home cp Problem: new cp Symptoms: have improved cp Condition: Stable cp Diagnosis - Encounter for screening, unspecified cp - Hypertensive heart and chronic kidney disease without heart failure, with stage 5 cp chronic kidney disease, or end stage renal disease Followup: cp - With: Private Physician - When: 1 - 2 days - Reason: Recheck today's complaints Discharge Instructions: - Discharge Summary Sheet cp - Hypertension, Adult cp - End-Stage Kidney Disease cp Forms: - Medication Reconciliation Form cp - Thank You Letter cp - Antibiotic Education cp - Prescription Opioid Use cp Signatures: Dispatcher [employer] EDMS Dario Clinton MD MD cha Page, Corey, PA PA cp Bandar Rockwell MD MD ma2 Tabitha Meadows, RN RN ll1 Leonor Clancy RN RN cc4 Corrections: (The following items were deleted from the chart) 01/05 19:47 19:46 Urine Dipstick-Ancillary ordered. cp cp 21:32 19:06 Urine Dipstick-Ancillary ordered. ma2 cc4 21:32 19:36 Szymanski ordered. cp cc4 21:33 19:47 Urine Microscopic Only ordered. EDMS EDMS
--- NOTE | 2021-01-05 21:11 | ER ---
Nurse's Notes [facility] Name: Dayton Grijalva Age: 60 yrs Sex: Male : 1960 Arrival Date: 01/05/2021 Time: 15:43 Bed 20 Private MD: Diagnosis: Encounter for screening, unspecified;Hypertensive heart and chronic kidney disease without heart failure, with stage 5 chronic kidney disease, or end stage renal disease Presentation: 01/05 16:08 Chief complaint: Patient states: Unable to urinate well since Tuesday. No fever or ll1 N/V/D. Coronavirus screen: Vaccine status: Patient reports receiving the 2nd dose of the covid vaccine. Client denies travel out of the [place] in the last 14 days. At this time, the client does not indicate any symptoms associated with coronavirus-19. Ebola Screen: Patient denies travel to an Ebola-affected area in the 21 days before illness onset. Initial Sepsis Screen: Does the patient meet any 2 criteria? No. Patient's initial sepsis screen is negative. Does the patient have a suspected source of infection? Yes: Dysuria/Frequency/Urgency/UTI. Risk Assessment: Do you want to hurt yourself or someone else? Patient reports no desire to harm self or others. Onset of symptoms was January 02, 2021. 16:08 Method Of Arrival: Wheelchair ll1 16:08 Acuity: SAMARA 3 ll1 Historical: - Allergies: 16:07 No Known Allergies; ll1 - PMHx: 16:07 Diabetes - IDDM; HD-MWF; Hypertension; ll1 - PSHx: 16:07 open heart surgery; R foot partial amputation; ll1 - Immunization history:: Client reports receiving the 2nd dose of the Covid vaccine. - Social history:: Smoking status: Patient denies any tobacco usage or history of. Screenin:23 Abuse screen: Denies threats or abuse. Nutritional screening: No deficits noted. cc4 Tuberculosis screening: No symptoms or risk factors identified. Fall Risk Gait- Impaired (20 pts.). Assessment: 20:23 General: Appears in no apparent distress. Behavior is calm, cooperative, quiet. Pain: cc4 Denies pain. Neuro: No deficits noted. Level of Consciousness is awake, alert, obeys commands, Oriented to person, place, time, situation. Cardiovascular: Heart tones S1 S2 Capillary refill < 3 seconds Patient's skin is warm and dry. hypertensive; h/o ESRD; son reports father left hemodialysis approximately 4 hours ago; pressure dressings x 2 noted CDI to right upper arm AVF.. Respiratory: No deficits noted. Airway is patent Breath sounds are clear bilaterally. GI: No deficits noted. Abdomen is flat, Bowel sounds present X 4 quads. : Last void was January 05, 2021. Son reports father has only voided small amount of urine today; "We just need to know how much urine is in his bladder"; denies reports of urgency or burning with urination. EENT: No deficits noted. No signs and/or symptoms were reported regarding the EENT system. Eyes clear. Nares are clear. Derm: No deficits noted. Skin is intact, Pressure dressings x 2 noted intact left upper arm AVF site; son reports father leaving hemodialysis session approximately 4 hours ago with no bleeding noted; nica dressing intact right partially amputated foot with small amount bleeding noted; son reports healing wound of right partially amputated foot. Musculoskeletal: Amputation of Partial amputation with nica dressing intact with small amount bleeding noted; son reports healing wound right foot. 21:26 Reassessment: BP decreasing to 179/90; NAD. cc4 Vital Signs: 16:08 BP 163 / 95; Pulse 72; Resp 17; Temp 97.8; Pulse Ox 100% ; Weight 86.18 kg; Height 6 ll1 ft. 0 in. (182.88 cm); Pain 0/10; 19:28 BP 113 / 77; Pulse 72; Resp 18; Pulse Ox 96% ; ll1 20:23 BP 205 / 100; Pulse 68; Resp 20; Pulse Ox 99% on R/A; cc4 20:30 BP 214 / 99; Pulse 68; Resp 20; Pulse Ox 98% on R/A; cc4 21:13 BP 179 / 90; Pulse 70; Resp 20; Temp 97.9; Pulse Ox 97% on R/A; cc4 16:08 Body Mass Index 25.77 (86.18 kg, 182.88 cm) ll1 19:28 fingerstick 125 ll1 ED Course: 15:43 Patient arrived in ED. ds1 16:08 Arm band placed on Patient placed in an exam room, on a stretcher. ll1 16:09 Triage completed. ll1 19:34 Dario Tejada PA is PHCP. cp 19:34 Bandar Rockwell MD is Attending Physician. cp 19:39 Patient placed in an exam room, on a stretcher. ll1 19:40 Attending Physician role handed off by Bandar Rockwell MD [facility] 19:40 Dario Clinton MD is Attending Physician. mary 20:23 Patient has correct armband on for positive identification. Bed in low position. Call cc4 light in reach. Side rails up X2. 20:28 Leonor Clancy, RN is Primary Nurse. cc4 21:13 No provider procedures requiring assistance completed. cc4 21:13 Patient did not have IV access during this emergency room visit. cc4 Administered Medications: 20:45 Drug: cloNIDine 0.2 mg Route: PO; cc4 21:13 Follow up: Response: No adverse reaction; Blood pressure is lowered cc4 Outcome: 21:13 Discharged to home via wheelchair, with son cc4 21:13 Condition: improved 21:13 Discharge instructions given to patient, \\T\\ son Instructed on discharge instructions, follow up and referral plans. Demonstrated understanding of instructions, follow-up care. 21:33 Patient left the ED. cc4 Signatures: Dario Clinton MD MD cha Sanford, Demi ds1 Dario Tejada PA PA cp Lewis, Lynsay, RN RN 1 Leonor Clancy, SUNITA RN cc4 Corrections: (The following items were deleted from the chart) 21:30 21:11 Discharge ordered by . cp cc4
[2021-01-05] MEDS ORDERED: cloNIDine HCL 0.1 MG TAB ONE (21:42)
[2021-01-05 22:19] VITALS: BP 179/90; TEMP 97.9; O2SAT 97
--- OUTSIDE RECORDS SUMMARY | 2021-01-17 06:38 | XMS REPORT | Continuity of Care Document ---
:[address] [facility] t Address [address] [place] [address] Dr. [address] [place] [address] Care Team Providers Name Role Phone Rose Duval MD Primary Care Physician Ruby CLOUD Attending Clinician Unavailable MARIA C DRIVRE Attending Clinician Unavailable Cortez PADILLA Attending Clinician Unavailable Vikas Cloud DPM Attending Clinician Steve CASTAÑEDA Attending Clinician Unavailable ELIZABETH KIRBY Attending Clinician Unavailable Natalio Mixon V Attending Clinician Unavailable BENTLEY Attending Clinician Unavailable Laisha Sánchez Attending Clinician Unavailable KNOW Attending Clinician Unavailable ABIMBOLA HINES Attending Clinician Unavailable Shashi LOGAN L Attending Clinician NATALIO MIXON Attending Clinician Unavailable KIMBERLI HAGAN Attending Clinician Unavailable TURKISH Attending Clinician Unavailable ANANDA Attending Clinician Unavailable Ruby CLOUD Admitting Clinician Unavailable MARIA C DRIVER Admitting Clinician Unavailable Cortez PADILLA Admitting Clinician Unavailable JAXSON Admitting Clinician Unavailable FRANCESCO Admitting Clinician Unavailable KNOW Admitting Clinician Unavailable RUTH ELIAS Admitting Clinician Unavailable ELI Admitting Clinician Unavailable KIMBERLI HAGAN Admitting Clinician Unavailable Payers Payer Name Policy Type Policy Number Effective Date Expiration Date [id number] HMO 00:00:00 CDC REVIEW [id number] 2019 2020 00:00:00 00:00:00 MEDICARE PART A \\T\\ [id number] B - MEDICARE OPEN ACCESS PLUS - [id number] ARAMIS Problems Condition Condition Condition Status Onset Resolution Last Treating Co mments Source Name Details Category Date Date Treatment Clinician Date Pressure Pressure Disease Active [facility] ulcer of ulcer of 8-10 [facility] right right 00:00: of heel, heel, 00 Medicin stage 3 stage 3 e (HCCode) (HCCode) Status Status Disease Active [facility] post split post split 07-30 Co llege thickness thickness 00:00: of skin graft skin graft 00 Me dicin e 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 tive state tive state 5-19 Co llege 00:00: of 00 Medicin e S/P S/P Disease Active [facility] transmetat transmetat 5- Co llege arsal arsal 00:00: of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 00 Me dicin of foot, of foot, e right right (HCCode) (HCCode) Type 2 Type 2 Disease Active [facility] diabetes diabetes 5-19 Colleg e mellitus mellitus 00:00: of with with 00 Medicin diabetic diabetic e peripheral peripheral angiopathy angiopathy and and gangrene, gangrene, without without long-term long-term current current use of use of insulin insulin (HCCode) (HCCode) Encounter Encounter Disease Active [facility] for post for post -19 [facility] e surgical surgical 00:00: of wound wound 00 Medicin check check e PAD PAD Disease Active [facility] (periphera (periphera 5-12 Co llege l artery l artery 00:00: of disease) disease) 00 Medici n (HCCode) (HCCode) e PAD PAD Disease Active [facility] (periphera (periphera 5-12 Co llege l artery l artery 00:00: of disease) disease) 00 Medici n (HCCode) (HCCode) e Allergies, Adverse Reactions, Alerts Allergy Allergy Status Severity Reaction(s) Onset Inactive Treating Comm ents Source Name Type Date Date Clinician No Known DA Active [facility] No Known DA Active [facility] NO KNOWN Allergy Active [facility] Social History Social Habit Start Date Stop Date Quantity Comments Source Exposure to Not sure [facility] Amira doherty SARS-CoV-2 of Medicine (event) Alcohol intake 2021-01-04 2021-01-04 Ex-drinker [facility] Col lege 00:00:00 00:00:00 (finding) of Medicine Tobacco use and 2019-07-10 2019-07-10 Never used [facility] llege exposure 00:00:00 00:00:00 of Medicine Sex [birth year] [facility] llege 00:00:00 00:00:00 of Medicine Smoking Status Start Date Stop Date Source Never smoker [facility] o f Medicine Medications Ordered Filled Start Stop Current Ordering Indication Dosage Frequency Signature Comments Components Source Medication Medication Date Date Medication? Clinician (SIG) Name Name SENNA CO 2020-03 Yes by [facility] 0- COMBINATIO [place] 15:27: N route. of 58 Medicin e Sevelamer 2020-03 Yes Take by [facility] or [facility] mouth. [place] 800 MG TABS 15:27: of 58 Medicin e amlodipine 2020-03 Yes 10mg Take 10 mg [facility] (NORVASC) 0 by mouth Colleg e 10 MG 15:27: daily. of tablet 58 Medicin e carvedilol 2020-03 Yes 12.5mg Take 12.5 [facility] (COREG) 0-19 mg by [place] 12.5 MG 15:27: mouth 2 of tablet 58 times Medicin daily e (with meals). gabapentin 2020-03 Yes 300mg Take 300 [facility] (NEURONTIN) 0-19 mg by [place] 300 MG 15:27: mouth 3 of capsule 58 times Medicin daily. e ASPIRIN 81 2020-03 Yes Take by [facility] OR 0-19 mouth. [place] 15:27: of 58 Medicin e Melatonin 3 2020-03 Yes Take by [facility] MG TABS 0-19 mouth. [place] 15:27: of 58 Medicin e Acetaminoph 2020-03 Yes Take by [facility] en 0-19 mouth two [place] (TYLENOL) 15:27: times of 325 MG CAPS 58 daily. Medici n e Docusate 2020-03 Yes Take by [facility] Sodium 100 0-19 mouth. [place] MG TABS 15:27: of 58 Medicin e senna-docus 2020-03 Yes 1{tbl} Take 1 [facility] ate 0-19 Tablet by [place] (SENOKOT S) 15:27: mouth of 8.6-50 MG 58 daily. Medicin per tablet e Simethicone 2020-03 Yes Take by [facility] 80 MG TABS 0-19 mouth. [place] 15:27: of 58 Medicin e Glucagon 1 2020-03 Yes Inject [facility] MG/0.2ML 0-19 into the [place] SOAJ 15:27: skin. of 58 Medicin e dextrose 50 2020-03 Yes once. [facility] % injection 0-19 [place] 15:27: of 58 Medicin e Glucose 15 2020-03 Yes Take by [facility] g PACK 0-19 mouth. [place] 15:27: of 58 Medicin e insulin 2020-03 Yes Inject [facility] aspart 0-19 into the [place] (NOVOLOG) 15:27: skin 3 of 100 UNIT/ML 58 times Medicin injection daily e (before meals). Dextran 2020-03 Yes Apply to [facility] 70-Hypromel 0-19 eye. [place] lose 15:27: of (ARTIFICIAL 58 Medicin TEARS) e 0.1-0.3 % SOLN piperacilli 2020-03 Yes 2.25g Inject [facility] n-tazobacta 0-19 2.25 g Colleg e m (ZOSYN) 15:27: into the of 2-0.25 58 vein every Medicin GM/50ML 6 hours. e IVPB atorvastati 2020-03 Yes 40mg Take 40 mg [facility] n (LIPITOR) 0-19 by mouth [facility] 40 MG 15:27: daily. of tablet 58 Medicin e ferrous 2020-03 Yes 325mg Take 325 [facility] sulfate 325 0-19 mg by [place] (65 Fe) MG 15:27: mouth of tablet 58 daily. Medicin e insulin 2020-03 Yes Inject [facility] glargine 0-19 into the College (LANTUS) 15:27: skin of 100 UNIT/ML 58 nightly. Medi greyson injection e Epoetin 2020-03 Yes Inject as [facility] Bob-epbx 0-19 directed. [facility]le [facility] (RETACRIT) 15:27: of 3000 58 Medicin UNIT/ML e SOLN SENNA CO Yes by [facility] 11-25 COMBINATIO [place] 14:32: N route. of 28 Medicin e Sevelamer Yes Take by [facility] Carbonate 11-25 mouth. [place] 800 MG TABS 14:32: of 28 Medicin e amlodipine Yes 10mg Take 10 mg [facility] (NORVASC) 11-25 by mouth Colleg e 10 MG 14:32: daily. of tablet 28 Medicin e carvedilol Yes 12.5mg Take 12.5 [facility] (COREG) 9-21 mg by [place] 12.5 MG 14:32: mouth 2 of tablet 28 times Medicin daily e (with meals). gabapentin Yes 300mg Take 300 [facility] (NEURONTIN) - mg by [place] 300 MG 14:32: mouth 3 of capsule 28 times Medicin daily. e ASPIRIN 81 Yes Take by [facility] OR 11-25 mouth. [place] 14:32: of 28 Medicin e Melatonin 3 Yes Take by [facility] MG TABS 11-25 mouth. [place] 14:32: of 28 Medicin e Acetaminoph Yes Take by [facility] en - mouth two College (TYLENOL) 14:32: times of 325 MG CAPS 28 daily. Medici n e Docusate Yes Take by [facility] Sodium 100 11-25 mouth. [place] MG TABS 14:32: of 28 Medicin e senna-docus Yes 1{tbl} Take 1 [facility] ate - Tablet by [place] (SENOKOT S) 14:32: mouth of 8.6-50 MG 28 daily. Medicin per tablet e Simethicone Yes Take by [facility] 80 MG TABS - mouth. [place] 14:32: of 28 Medicin e Glucagon 1 Yes Inject [facility] MG/0.2ML 11-25 into the [place] SOAJ 14:32: skin. of 28 Medicin e dextrose 50 Yes once. [facility] % injection 11-25 [place] 14:32: of 28 Medicin e Glucose 15 Yes Take by [facility] g PACK 11-25 mouth. [place] 14:32: of 28 Medicin e insulin Yes Inject [facility] aspart 11-25 into the [place] (NOVOLOG) 14:32: skin 3 of 100 UNIT/ML 28 times Medicin injection daily e (before meals). Dextran Yes Apply to [facility] 70-Hypromel 11-25 eye. [place] lose 14:32: of (ARTIFICIAL 28 Medicin TEARS) e 0.1-0.3 % SOLN piperacilli Yes 2.25g Inject [facility] n-tazobacta 11-25 2.25 g Colleg e m (ZOSYN) 14:32: into the of 2-0.25 28 vein every Medicin GM/50ML 6 hours. e IVPB ferrous Yes 325mg Take 325 [facility] sulfate 325 - mg by [place] (65 Fe) MG 14:32: mouth of tablet 28 daily. Medicin e insulin Yes Inject [facility] glargine 11-25 into the [place] (LANTUS) 14:32: skin of 100 UNIT/ML 28 nightly. Medi greyson injection e Epoetin Yes Inject as [facility] Bob-epbx 11-25 directed. [facility] ge (RETACRIT) 14:32: of 3000 28 Medicin UNIT/ML e SOLN SENNA CO Yes by [facility] 11-25 COMBINATIO [place] 14:32: N route. of 28 Medicin e Sevelamer Yes Take by [facility] Carbonate 11-25 mouth. [place] 800 MG TABS 14:32: of 28 Medicin e amlodipine Yes 10mg Take 10 mg [facility] (NORVASC) -21 by mouth Colleg e 10 MG 14:32: daily. of tablet 28 Medicin e carvedilol Yes 12.5mg Take 12.5 [facility] (COREG) - mg by [place] 12.5 MG 14:32: mouth 2 of tablet 28 times Medicin daily e (with meals). gabapentin Yes 300mg Take 300 [facility] (NEURONTIN) - mg by [place] 300 MG 14:32: mouth 3 of capsule 28 times Medicin daily. e ASPIRIN 81 Yes Take by [facility] OR 11-25 mouth. [place] 14:32: of 28 Medicin e Melatonin 3 Yes Take by [facility] MG TABS 11-25 mouth. [place] 14:32: of 28 Medicin e Acetaminoph Yes Take by [facility] en 11-25 mouth two [place] (TYLENOL) 14:32: times of 325 MG CAPS 28 daily. Medici n e Docusate Yes Take by [facility] Sodium 100 11-25 mouth. [place] MG TABS 14:32: of 28 Medicin e senna-docus Yes 1{tbl} Take 1 [facility] ate 11-25 Tablet by [place] (SENOKOT S) 14:32: mouth of 8.6-50 MG 28 daily. Medicin per tablet e Simethicone Yes Take by [facility] 80 MG TABS 11-25 mouth. [place] 14:32: of 28 Medicin e Glucagon 1 Yes Inject [facility] MG/0.2ML 11-25 into the [place] SOAJ 14:32: skin. of 28 Medicin e dextrose 50 Yes once. [facility] % injection 11-25 [place] 14:32: of 28 Medicin e Glucose 15 Yes Take by [facility] g PACK 11-25 mouth. College 14:32: of 28 Medicin e insulin Yes Inject [facility] aspart 11-25 into the [place] (NOVOLOG) 14:32: skin 3 of 100 UNIT/ML 28 times Medicin injection daily e (before meals). Dextran Yes Apply to [facility] 70-Hypromel 11-25 eye. College lose 14:32: of (ARTIFICIAL 28 Medicin TEARS) e 0.1-0.3 % SOLN piperacilli Yes 2.25g Inject [facility] n-tazobacta 11-25 2.25 g Colleg e m (ZOSYN) 14:32: into the of 2-0.25 28 vein every Medicin GM/50ML 6 hours. e IVPB ferrous Yes 325mg Take 325 [facility] sulfate 325 11-25 mg by [place] (65 Fe) MG 14:32: mouth of tablet 28 daily. Medicin e insulin Yes Inject [facility] glargine 11-25 into the [place] (LANTUS) 14:32: skin of 100 UNIT/ML 28 nightly. Medi greyson injection e Epoetin Yes Inject as [facility] Bob-epbx 11-25 directed. [facility] (RETACRIT) 14:32: of 3000 28 Medicin UNIT/ML e SOLN atorvastati Yes 40mg Take 40 mg [facility] n (LIPITOR) 824 by mouth [facility] 40 MG 16:32: daily. of tablet 09 Medicin e atorvastati Yes 40mg Take 40 mg [facility] n (LIPITOR) 824 by mouth [facility] 40 MG 16:32: daily. of tablet 09 Medicin e SENNA CO Yes by [facility] 824 COMBINAO [place] 16:32: N route. of 09 Medicin e Sevelamer Yes Take by [facility] Carbonate 8 mouth. [place] 800 MG TABS 16:32: of 09 Medicin e amlodipine Yes 10mg Take 10 mg [facility] (NORVASC) 824 by mouth Colleg e 10 MG 16:32: daily. of tablet 09 Medicin e carvedilol Yes 12.5mg Take 12.5 [facility] (COREG) 8-24 mg by [place] 12.5 MG 16:32: mouth 2 of tablet 09 times Medicin daily e (with meals). gabapentin Yes 300mg Take 300 [facility] (NEURONTIN) 8-24 mg by [place] 300 MG 16:32: mouth 3 of capsule 09 times Medicin daily. e ASPIRIN 81 0 Yes Take by [facility] [place] 8-24 mouth. [place] 16:32: of 09 Medicin e Melatonin 3 Yes Take by [facility] MG TABS 8-24 mouth. [place] 16:32: of 09 Medicin e Acetaminoph Yes Take by [facility] en 8-24 mouth two [place] (TYLENOL) 16:32: times of 325 MG CAPS 09 daily. Medici n e Docusate Yes Take by [facility] Sodium 100 8- mouth. [place] MG TABS 16:32: of 09 Medicin e senna-docus Yes 1{tbl} Take 1 [facility] ate 824 Tablet by [place] (SENOKOT S) 16:32: mouth of 8.6-50 MG 09 daily. Medicin per tablet e Simethicone Yes Take by [facility] 80 MG TABS 8-24 mouth. [place] 16:32: of 09 Medicin e Glucagon 1 Yes Inject [facility] MG/0.2ML 10-28 into the [place] SOAJ 16:32: skin. of 09 Medicin e dextrose 50 Yes once. [facility] % injection 10-28 [place] 16:32: of 09 Medicin e Glucose 15 Yes Take by [facility] g PACK 10-28 mouth. [place] 16:32: of 09 Medicin e insulin Yes Inject [facility] aspart 10-28 into the [place] (NOVOLOG) 16:32: skin 3 of 100 UNIT/ML 09 times Medicin injection daily e (before meals). Dextran Yes Apply to [facility] 70-Hypromel 10-28 eye. [place] lose 16:32: of (ARTIFICIAL Medicin TEARS) e 0.1-0.3 % SOLN piperacilli Yes 2.25g Inject [facility] n-tazobacta 10-28 2.25 g Colleg e m (ZOSYN) 16:32: into the of 2-0.25 09 vein every Medicin GM/50ML 6 hours. e IVPB atorvastati Yes 40mg Take 40 mg [facility] n (LIPITOR) 8-24 by mouth [facility] 40 MG 16:32: daily. of tablet 09 Medicin e ferrous 0 Yes 325mg Take 325 [facility] sulfate 325 8-24 mg by [place] (65 Fe) MG 16:32: mouth of tablet 09 daily. Medicin e insulin Yes Inject [facility] glargine 824 into the College (LANTUS) 16:32: skin of 100 UNIT/ML 09 nightly. Medi greyson injection e Epoetin Yes Inject as [facility] Bob-epbx 8-24 directed. [facility] ge (RETACRIT) 16:32: of 3000 09 Medicin UNIT/ML e SOLN SENNA CO Yes by [facility] N [facility]. of 31 Medicin e Sevelamer Yes Take by [facility] Carbonate 8-10 mouth. [place] 800 MG TABS 16:21: of 31 Medicin e amlodipine Yes 10mg Take 10 mg [facility] (NORVASC) 8-10 by mouth [facility] e 10 MG 16:21: daily. of tablet 31 Medicin e carvedilol Yes 12.5mg Take 12.5 [facility] (COREG) 8-10 mg by [place] 12.5 MG 16:21: mouth 2 of tablet 31 times Medicin daily e (with meals). gabapentin Yes 300mg Take 300 [facility] (NEURONTIN) 8-10 mg by [place] 300 MG 16:21: mouth 3 of capsule 31 times Medicin daily. e ASPIRIN 81 Yes Take by [facility] OR 8-10 mouth. [place] 16:21: of 31 Medicin e Melatonin 3 Yes Take by [facility] MG TABS 8-10 mouth. [place] 16:21: of 31 Medicin e Acetaminoph Yes Take by [facility] en 8-10 mouth [facility] (TYLENOL) 16:21: times of 325 MG CAPS 31 daily. Medici n e Docusate Yes Take by [facility] Sodium 100 8-10 mouth. [place] MG TABS 16:21: of 31 Medicin e senna-docus Yes 1{tbl} Take 1 [facility] ate 8-10 Tablet by [place] (SENOKOT S) 16:21: mouth of 8.6-50 MG 31 daily. Medicin per tablet e Simethicone Yes Take by [facility] 80 MG TABS 8-10 mouth. [place] 16:21: of 31 Medicin e Glucagon 1 Yes Inject [facility] MG/0.2ML 8-10 into the [place] SOAJ 16:21: skin. of 31 Medicin e dextrose 50 Yes once. [facility] % injection 8-10 [place] 16:21: of 31 Medicin e Glucose 15 Yes Take by [facility] g PACK 8-10 mouth. [place] 16:21: of 31 Medicin e insulin Yes Inject [facility] aspart 8-10 into the [place] (NOVOLOG) 16:21: skin 3 of 100 UNIT/ML 31 times Medicin injection daily e (before meals). Dextran Yes Apply to [facility] 70-Hypromel 8-10 eye. [place] lose 16:21: of (ARTIFICIAL 31 Medicin TEARS) e 0.1-0.3 % SOLN piperacilli Yes 2.25g Inject [facility] n-tazobacta 8-10 2.25 g Colleg e m (ZOSYN) 16:21: into the of 2-0.25 31 vein every Medicin GM/50ML 6 hours. e IVPB atorvastati Yes 40mg Take 40 mg [facility] n (LIPITOR) 8-10 by mouth [facility] 40 MG 16:21: daily. of tablet 31 Medicin e ferrous Yes 325mg Take 325 [facility] sulfate 325 8-10 mg by [place] (65 Fe) MG 16:21: mouth of tablet 31 daily. Medicin e insulin Yes Inject [facility] glargine 8-10 into the [place] (LANTUS) 16:21: skin of 100 UNIT/ML 31 nightly. Medi greyson injection e Epoetin Yes Inject as [facility] Bob-epbx 8-10 directed. [facility] (RETACRIT) 16:21: of 3000 31 Medicin UNIT/ML e SOLN SENNA CO Yes by [facility]: N route. of 22 Medicin e Sevelamer Yes Take by [facility] Carbonate - mouth. [place] 800 MG TABS 16:10: of 22 Medicin e amlodipine Yes 10mg Take 10 mg [facility] (NORVASC) 6-29 by mouth Colleg e 10 MG 16:10: daily. of tablet 22 Medicin e carvedilol Yes 12.5mg Take 12.5 [facility] (COREG) 6-29 mg by [place] 12.5 MG 16:10: mouth 2 of tablet 22 times Medicin daily e (with meals). gabapentin Yes 300mg Take 300 [facility] (NEURONTIN) 6-29 mg by [place] 300 MG 16:10: mouth 3 of capsule 22 times Medicin daily. e ASPIRIN 81 Yes Take by [facility] OR - mouth. [place] 16:10: of 22 Medicin e Melatonin 3 Yes Take by [facility] MG TABS 09-02 mouth. [place] 16:10: of 22 Medicin e Acetaminoph Yes Take by [facility] en - mouth two [place] (TYLENOL) 16:10: times of 325 MG CAPS 22 daily. Medici n e Docusate Yes Take by [facility] Sodium 100 - mouth. [place] MG TABS 16:10: of 22 Medicin e senna-docus Yes 1{tbl} Take 1 [facility] ate - Tablet by [place] (SENOKOT S) 16:10: mouth of 8.6-50 MG 22 daily. Medicin per tablet e Simethicone Yes Take by [facility] 80 MG TABS - mouth. [place] 16:10: of 22 Medicin e Glucagon 1 Yes Inject [facility] MG/0.2ML 09-02 into the [place] SOA 16:10: skin. of 22 Medicin e dextrose 50 Yes once. [facility] % injection 09-02 [place] 16:10: of 22 Medicin e Glucose 15 Yes Take by [facility] g PACK 09-02 mouth. [place] 16:10: of 22 Medicin e insulin Yes Inject [facility] aspart - into the College (NOVOLOG) 16:10: skin 3 of 100 UNIT/ML 22 times Medicin injection daily e (before meals). Dextran Yes Apply to [facility] 70-Hypromel 09-02 eye. College lose 16:10: of (ARTIFICIAL 22 Medicin TEARS) e 0.1-0.3 % SOLN piperacilli Yes 2.25g Inject [facility] n-tazobacta 09-02 2.25 g Colleg e m (ZOSYN) 16:10: into the of 2-0.25 22 vein every Medicin GM/50ML 6 hours. e IVPB atorvastati Yes 40mg Take 40 mg [facility] n (LIPITOR) 6-29 by mouth [facility] 40 MG 16:10: daily. of tablet 22 Medicin e ferrous Yes 325mg Take 325 [facility] sulfate 325 6-29 mg by [place] (65 Fe) MG 16:10: mouth of tablet 22 daily. Medicin e insulin Yes Inject [facility] glargine 09-02 into the [place] (LANTUS) 16:10: skin of 100 UNIT/ML 22 nightly. Medi greyson injection e Epoetin Yes Inject as [facility] Bob-epbx 6-29 directed. [facility] (RETACRIT) 16:10: of 3000 22 Medicin UNIT/ML e SOLN SENNA CO Yes by [facility] 5-18 COMBINATIO [place] 13:26: N route. of 10 Medicin e Sevelamer Yes Take by [facility] Carbonate 5-18 mouth. [place] 800 MG TABS 13:26: of 10 Medicin e amlodipine Yes 10mg Take 10 mg [facility] (NORVASC) 5-18 by mouth Colleg e 10 MG 13:26: daily. of tablet 10 Medicin e carvedilol Yes 12.5mg Take 12.5 [facility] (COREG) 5-18 mg by [place] 12.5 MG 13:26: mouth 2 of tablet 10 times Medicin daily e (with meals). gabapentin Yes 300mg Take 300 [facility] (NEURONTIN) 5-18 mg by [place] 300 MG 13:26: mouth 3 of capsule 10 times Medicin daily. e ASPIRIN 81 0 Yes Take by [facility] OR 5-18 mouth. [place] 13:26: of 10 Medicin e Melatonin 3 0 Yes Take by [facility] MG TABS 5-18 mouth. [place] 13:26: of 10 Medicin e Acetaminoph Yes Take by [facility] en 5-18 mouth two [place] (TYLENOL) 13:26: times of 325 MG CAPS 10 daily. Medici n e Docusate Yes Take by [facility] Sodium 100 5-18 mouth. [place] MG TABS 13:26: of 10 Medicin e senna-docus Yes 1{tbl} Take 1 [facility] ate 5-18 Tablet by [place] (SENOKOT S) 13:26: mouth of 8.6-50 MG 10 daily. Medicin per tablet e Simethicone Yes Take by [facility] 80 MG TABS 5-18 mouth. [place] 13:26: of 10 Medicin e Glucagon 1 Yes Inject [facility] MG/0.2ML 5-18 into the [place] SOAJ 13:26: skin. of 10 Medicin e dextrose 50 0 Yes once. [facility] % injection 07-22 [place] 13:26: of 10 Medicin e Glucose 15 Yes Take by [facility] g PACK 18 mouth. [place] 13:26: of 10 Medicin e insulin Yes Inject [facility] aspart -18 into the [place] (NOVOLOG) 13:26: skin 3 of 100 UNIT/ML 10 times Medicin injection daily e (before meals). Dextran Yes Apply to [facility] 70-Hypromel -18 eye. [place] lose 13:26: of (ARTIFICIAL 10 Medicin TEARS) e 0.1-0.3 % SOLN piperacilli Yes 2.25g Inject [facility] n-tazobacta 5-18 2.25 g [facility] (ZOSYN) 13:26: into the of 2-0.25 10 vein every Medicin GM/50ML 6 hours. e IVPB atorvastati Yes 40mg Take 40 mg [facility] n (LIPITOR) 5-18 by mouth [facility] 40 MG 13:26: daily. of tablet 10 Medicin e ferrous Yes 325mg Take 325 [facility] sulfate 325 5-18 mg by [place] (65 Fe) MG 13:26: mouth of tablet 10 daily. Medicin e insulin Yes Inject [facility] glargine 5-18 into the College (LANTUS) 13:26: skin of 100 UNIT/ML 10 nightly. Medi greyson injection e Epoetin Yes Inject as [facility] Bob-epbx 5-18 directed. [facility] (RETACRIT) 13:26: of 3000 10 Medicin UNIT/ML e SOLN SENNA CO Yes by [facility] 5[facility] 13:26: N route. of 10 Medicin e Sevelamer Yes Take by [facility] Carbonate 5-18 mouth. [place] 800 MG TABS 13:26: of 10 Medicin e amlodipine Yes 10mg Take 10 mg [facility] (NORVASC) 5-18 by mouth Colleg e 10 MG 13:26: daily. of tablet 10 Medicin e carvedilol Yes 12.5mg Take 12.5 [facility] (COREG) 5-18 mg by [place] 12.5 MG 13:26: mouth 2 of tablet 10 times Medicin daily e (with meals). gabapentin Yes 300mg Take 300 [facility] (NEURONTIN) 5-18 mg by [place] 300 MG 13:26: mouth 3 of capsule 10 times Medicin daily. e ASPIRIN 81 Yes Take by [facility] OR 5-18 mouth. [place] 13:26: of 10 Medicin e Melatonin 3 Yes Take by [facility] MG TABS 5-18 mouth. [place] 13:26: of 10 Medicin e Acetaminoph Yes Take by [facility] en 5-18 mouth two [place] (TYLENOL) 13:26: times of 325 MG CAPS 10 daily. Medici n e Docusate Yes Take by [facility] Sodium 100 5-18 mouth. [place] MG TABS 13:26: of 10 Medicin e senna-docus Yes 1{tbl} Take 1 [facility] ate 5-18 Tablet by [place] (SENOKOT S) 13:26: mouth of 8.6-50 MG 10 daily. Medicin per tablet e Simethicone Yes Take by [facility] 80 MG TABS 5-18 mouth. [place] 13:26: of 10 Medicin e Glucagon 1 Yes Inject [facility] MG/0.2ML 5-18 into the [place] SOA 13:26: skin. of 10 Medicin e dextrose 50 Yes once. [facility] % injection -18 [place] 13:26: of 10 Medicin e Glucose 15 Yes Take by [facility] g PACK -18 mouth. [place] 13:26: of 10 Medicin e insulin Yes Inject [facility] aspart 5-18 into the [place] (NOVOLOG) 13:26: skin 3 of 100 UNIT/ML 10 times Medicin injection daily e (before meals). Dextran Yes Apply to [facility] 70-Hypromel 5-18 eye. [place] lose 13:26: of (ARTIFICIAL 10 Medicin TEARS) e 0.1-0.3 % SOLN piperacilli Yes 2.25g Inject [facility] darnell n-tazobacta -18 2.25 g [facility] do[facility] m (ZOSYN) 13:26: into the of 2-0.25 10 vein every Medicin GM/50ML 6 hours. e IVPB atorvastati Yes 40mg Take 40 mg [facility] n (LIPITOR) 5-18 by mouth [facility] e[facility] 40 MG 13:26: daily. of tablet 10 Medicin e ferrous Yes 325mg Take 325 [facility] sulfate 325 5-18 mg by [place] (65 Fe) MG 13:26: mouth of tablet 10 daily. Medicin e insulin Yes Inject [facility] glargine 5-18 into the [place] (LANTUS) 13:26: skin of 100 UNIT/ML 10 nightly. Medi greyson injection e Epoetin Yes Inject as [facility] or Bob-epbx 5-18 directed. Greg ge (RETACRIT) 13:26: of 3000 10 Medicin UNIT/ML e SOLN collagenase 2020-0 Yes Apply [facility] r 250 UNIT/GM 5-18 Daily to Alexia e[facility] ointment 00:00: all right of 00 foot Medicin wounds e daily with wound careMeasur ements 4.0cm x 5.0 cm x 1.0 cm collagenase 202-0 Yes Apply [facility] r 250 UNIT/GM 5-18 Daily to [facility] ointment 00:00: all right of 00 foot Medicin wounds e daily with wound careMeasur ements 4.0cm x 5.0 cm x 1.0 cm collagenase 202-0 Yes Apply [facility] 250 UNIT/GM 5-18 Daily to [facility] e[facility] ointment 00:00: all right of 00 foot Medicin wounds e daily with wound careMeasur ements 4.0cm x 5.0 cm x 1.0 cm collagenase 2020-0 Yes Apply [facility] 250 UNIT/GM 5-18 Daily to [facility] e[facility] ointment 00:00: all right of 00 foot Medicin wounds e daily with wound careMeasur ements 4.0cm x 5.0 cm x 1.0 cm collagenase 2020-0 Yes Apply [facility] 250 UNIT/GM 5-18 Daily to [facility] e[facility] ointment 00:00: all right of 00 foot Medicin wounds e daily with wound careMeasur ements 4.0cm x 5.0 cm x 1.0 cm collagenase 2020-0 Yes Apply [facility] 250 UNIT/GM 5-18 Daily to [facility] e[facility] ointment 00:00: all right of 00 foot Medicin wounds e daily with wound careMeasur ements 4.0cm x 5.0 cm x 1.0 cm collagenase 2020-0 Yes Apply [facility] 250 UNIT/GM 5-18 Daily to [facility] e[facility] ointment 00:00: all right of 00 foot Medicin wounds e daily with wound careMeasur ements 4.0cm x 5.0 cm x 1.0 cm collagenase 2020-0 Yes Apply [facility] 250 UNIT/GM 5-18 Daily to [facility] ointment 00:00: all right of 00 foot Medicin wounds e daily with wound careMeasur ements 4.0cm x 5.0 cm x 1.0 cm hydrALAZINE 2020-0 2020- No 25mg Take 25 mg [facility] (APRESOLINE 4-20 04-20 by mouth 3 C [facility] ) 25 MG 20:48: 00:00 times of tablet 19 :00 daily. Medicin e hydrALAZINE 2020-0 Yes [facility] (APRESOLINE 4-14 [place] ) 100 MG 00:00: of tablet 00 Medicin e NIFEdipine 2020-0 Yes 60mg Take 60 mg [facility] (ADALAT CC) 4-14 by mouth [facility] 60 MG CR 00:00: daily. of tablet 00 Medicin e Tamsulosin 2020-0 Yes .4mg Take 0.4 [facility] HCl 0.4 MG 4-14 mg by [facility] CAPS 00:00: mouth of 00 daily. Medicin e hydrALAZINE 2020-0 Yes [facility] (APRESOLINE 4-14 [place] ) 100 MG 00:00: of tablet 00 Medicin e NIFEdipine 2020-0 Yes 60mg Take 60 mg [facility] (ADALAT CC) 4-14 by mouth [facility] 60 MG CR 00:00: daily. of tablet 00 Medicin e Tamsulosin 2020-0 Yes .4mg Take 0.4 [facility] HCl 0.4 MG 4-14 mg by [facility] CAPS 00:00: mouth of 00 daily. Medicin e hydrALAZINE 2020-0 Yes [facility] (APRESOLINE 4-14 [place] ) 100 MG 00:00: of tablet 00 Medicin e NIFEdipine 2020-0 Yes 60mg Take 60 mg [facility] (ADALAT CC) 4-14 by mouth [facility] 60 MG CR 00:00: daily. of tablet 00 Medicin e Tamsulosin 2020-0 Yes .4mg Take 0.4 [facility] HCl 0.4 MG 4-14 mg by [facility] CAPS 00:00: mouth of 00 daily. Medicin e hydrALAZINE 2020-0 Yes [facility] (APRESOLINE 4-14 [place] ) 100 MG 00:00: of tablet 00 Medicin e hydrALAZINE 2020-0 Yes [facility] (APRESOLINE 4-14 [place] ) 100 MG 00:00: of tablet 00 Medicin e NIFEdipine 2020-0 Yes 60mg Take 60 mg [facility] (ADALAT CC) 4-14 by mouth [facility] 60 MG CR 00:00: daily. of tablet 00 Medicin e Tamsulosin 2020-0 Yes .4mg Take 0.4 [facility] dranell HCl 0.4 MG 4-14 mg by [facility] CAPS 00:00: mouth of 00 daily. Medicin e hydrALAZINE 2020-0 Yes [facility] (APRESOLINE 4-14 [place] ) 100 MG 00:00: of tablet 00 Medicin e NIFEdipine 2020-0 Yes 60mg Take 60 mg [facility] (ADALAT CC) 4-14 by mouth [facility] 60 MG CR 00:00: daily. of tablet 00 Medicin e Tamsulosin 2020-0 Yes .4mg Take 0.4 [facility] HCl 0.4 MG 4-14 mg by [facility] CAPS 00:00: mouth of 00 daily. Medicin e hydrALAZINE 2020-0 Yes [facility] (APRESOLINE 4-14 [place] ) 100 MG 00:00: of tablet 00 Medicin e NIFEdipine 2020-0 Yes 60mg Take 60 mg [facility] (ADALAT CC) 4-14 by mouth [facility] 60 MG CR 00:00: daily. of tablet 00 Medicin e Tamsulosin 2020-0 Yes .4mg Take 0.4 [facility] HCl 0.4 MG 4-14 mg by [facility] CAPS 00:00: mouth of 00 daily. Medicin e hydrALAZINE 2020-0 Yes [facility] (APRESOLINE 4-14 [place] ) 100 MG 00:00: of tablet 00 Medicin e NIFEdipine 2020-0 Yes 60mg Take 60 mg [facility] (ADALAT CC) 4-14 by mouth [facility] 60 MG CR 00:00: daily. of tablet 00 Medicin e Tamsulosin 2020-0 Yes .4mg Take 0.4 [facility] HCl 0.4 MG 4-14 mg by [facility] CAPS 00:00: mouth of 00 daily. Medicin e hydrALAZINE 2020-0 Yes [facility] (APRESOLINE 4-14 [place] ) 100 MG 00:00: of tablet 00 Medicin e NIFEdipine 2020-0 Yes 60mg Take 60 mg [facility] (ADALAT CC) 4-14 by mouth [facility] e[facility] 60 MG CR 00:00: daily. of tablet 00 Medicin e Tamsulosin 2020-0 Yes .4mg Take 0.4 [facility] HCl 0.4 MG 4-14 mg by [facility] CAPS 00:00: mouth of 00 daily. Medicin e SENNA CO 2021-0 Yes by Ton 3-24 COMBINATIO [place] 22:07: N route. of 59 Medicin e hydrALAZINE Yes 25mg Take 25 mg [facility] (APRESOLINE 3-24 by mouth 3 Co [facility]lege ) 25 MG 22:07: times of tablet 59 daily. Medicin e Sevelamer Yes Take by [facility] or Carbonate 3-24 mouth. [place] 800 MG TABS 22:07: of 59 Medicin e amlodipine Yes 10mg Take 10 mg [facility] (NORVASC) 3-24 by mouth Colleg e 10 MG 22:07: daily. of tablet 59 Medicin e carvedilol Yes 12.5mg Take 12.5 [facility] (COREG) 3-24 mg by [place] 12.5 MG 22:07: mouth 2 of tablet 59 times Medicin daily e (with meals). gabapentin Yes 300mg Take 300 [facility] (NEURONTIN) 3-24 mg by [place] 300 MG 22:07: mouth 3 of capsule 59 times Medicin daily. e ASPIRIN 81 Yes Take by [facility] darnell OR 3-24 mouth. [place] 22:07: of 59 Medicin e Melatonin 3 Yes Take by [facility] MG TABS 3-24 mouth. [place] 22:07: of 59 Medicin e Acetaminoph Yes Take by [facility] en 3-24 mouth two [place] (TYLENOL) 22:07: times of 325 MG CAPS 59 daily. Medici n e Docusate Yes Take by [facility] Sodium 100 3-24 mouth. [place] MG TABS 22:07: of 59 Medicin e senna-docus Yes 1{tbl} Take 1 [facility] ate 3-24 Tablet by [place] (SENOKOT S) 22:07: mouth of 8.6-50 MG 59 daily. Medicin per tablet e Simethicone Yes Take by [facility] 80 MG TABS 3-24 mouth. [place] 22:07: of 59 Medicin e Glucagon 1 Yes Inject [facility] MG/0.2ML 3-24 into the College SO 22:07: skin. of 59 Medicin e dextrose 50 Yes once. [facility] % injection 3-24 [place] 22:07: of 59 Medicin e Glucose 15 Yes Take by [facility] darnell g PACK 3-24 mouth. [place] 22:07: of 59 Medicin e insulin Yes Inject [facility] aspart 3-24 into the College (NOVOLOG) 22:07: skin 3 of 100 UNIT/ML 59 times Medicin injection daily e (before meals). Dextran Yes Apply to [facility] 70-Hypromel 3-24 eye. [place] lose 22:07: of (ARTIFICIAL 59 Medicin TEARS) e 0.1-0.3 % SOLN piperacilli Yes 2.25g Inject [facility] d[facility] n-tazobacta 24 2.25 g [facility] m (ZOSYN) 22:07: into the of 2-0.25 59 vein every Medicin GM/50ML 6 hours. e IVPB atorvastati Yes 40mg Take 40 mg [facility] n (LIPITOR) 3-24 by mouth [facility] e[facility] 40 MG 22:07: daily. of tablet 59 Medicin e ferrous Yes 325mg Take 325 [facility] sulfate 325 3-24 mg by [place] (65 Fe) MG 22:07: mouth of tablet 59 daily. Medicin e insulin Yes Inject [facility] glargine 3-24 into the [place] (LANTUS) 22:07: skin of 100 UNIT/ML 59 nightly. Medi greyson injection e Epoetin Yes Inject as [facility] Bob-epbx 3-24 directed. [facility] (RETACRIT) 22:07: of 3000 59 Medicin UNIT/ML e SOLN SENNA CO 0 Yes by [facility] 3-24 COMBINATIO [place] 22:07: N route. of 59 Medicin e Sevelamer Yes Take by [facility] or Carbonate 3-24 mouth. [place] 800 MG TABS 22:07: of 59 Medicin e amlodipine Yes 10mg Take 10 mg [facility] (NORVASC) 3-24 by mouth Colleg e 10 MG 22:07: daily. of tablet 59 Medicin e carvedilol Yes 12.5mg Take 12.5 [facility] (COREG) 3-24 mg by [facility] 12.5 MG 22:07: mouth 2 of tablet 59 times Medicin daily e (with meals). gabapentin Yes 300mg Take 300 [facility] (NEURONTIN) 3-24 mg by [place] 300 MG 22:07: mouth 3 of capsule 59 times Medicin daily. e ASPIRIN 81 0 Yes Take by [facility] darnell OR 3-24 mouth. [place] 22:07: of 59 Medicin e Melatonin 3 Yes Take by [facility] MG TABS 3-24 mouth. [place] 22:07: of 59 Medicin e Acetaminoph Yes Take by [facility] en 3-24 mouth two [place] (TYLENOL) 22:07: times of 325 MG CAPS 59 daily. Medici n e Docusate Yes Take by [facility] Sodium 100 3-24 mouth. [place] MG TABS 22:07: of 59 Medicin e senna-docus Yes 1{tbl} Take 1 [facility] ate 3-24 Tablet by [place] (SENOKOT S) 22:07: mouth of 8.6-50 MG 59 daily. Medicin per tablet e Simethicone Yes Take by [facility] 80 MG TABS 3-24 mouth. [place] 22:07: of 59 Medicin e Glucagon 1 Yes Inject [facility] MG/0.2ML 3-24 into the [place] SOAJ 22:07: skin. of 59 Medicin e dextrose 50 0 Yes once. [facility] % injection -24 [place] 22:07: of 59 Medicin e Glucose 15 Yes Take by [facility] darnell g PACK 3-24 mouth. [place] 22:07: of 59 Medicin e insulin Yes Inject [facility] aspart 3-24 into the [place] (NOVOLOG) 22:07: skin 3 of 100 UNIT/ML 59 times Medicin injection daily e (before meals). Dextran Yes Apply to [facility] 70-Hypromel 3-24 eye. [place] lose 22:07: of (ARTIFICIAL 59 Medicin TEARS) e 0.1-0.3 % SOLN piperacilli 0 Yes 2.25g Inject [facility] n-tazobacta 3-24 2.25 g [facility] lo (ZOSYN) 22:07: into the of 2-0.25 59 vein every Medicin GM/50ML 6 hours. e IVPB atorvastati Yes 40mg Take 40 mg [facility] n (LIPITOR) 3-24 by mouth [facility] e[facility] 40 MG 22:07: daily. of tablet 59 Medicin e ferrous Yes 325mg Take 325 [facility] sulfate 325 3-24 mg by [place] (65 Fe) MG 22:07: mouth of tablet 59 daily. Medicin e insulin Yes Inject [facility] glargine 24 into the College (LANTUS) 22:07: skin of 100 UNIT/ML 59 nightly. Medi greyson injection e Epoetin Yes Inject as [facility] Bob-epbx -24 directed. [facility] (RETACRIT) 22:07: of 3000 59 Medicin UNIT/ML e SOLN SENNA CO Yes by [facility] N [facility]. of 38 Medicin e hydrALAZINE Yes 25mg Take 25 mg [facility] (APRESOLINE -09 by mouth 3 [facility] ) 25 MG 22:27: times of tablet 38 daily. Medicin e Sevelamer Yes Take by [facility] or Carbonate 3-09 mouth. [place] 800 MG TABS 22:27: of 38 Medicin e amlodipine Yes 10mg Take 10 mg [facility] (NORVASC) -09 by mouth [facility] e 10 MG 22:27: daily. of tablet 38 Medicin e carvedilol Yes 12.5mg Take 12.5 [facility] (COREG) 3-09 mg by [place] 12.5 MG 22:27: mouth 2 of tablet 38 times Medicin daily e (with meals). gabapentin Yes 300mg Take 300 [facility] (NEURONTIN) 3-09 mg by [place] 300 MG 22:27: mouth 3 of capsule 38 times Medicin daily. e ASPIRIN 81 Yes Take by [facility] darnell OR 3-09 mouth. [place] 22:27: of 38 Medicin e Melatonin 3 Yes Take by [facility] y[facility] MG TABS 3-09 mouth. [place] 22:27: of 38 Medicin e Acetaminoph Yes Take by [facility] en 3-09 mouth two College (TYLENOL) 22:27: times of 325 MG CAPS 38 daily. Medici n e Docusate Yes Take by [facility] Sodium 100 3- mouth. [place] MG TABS 22:27: of 38 Medicin e senna-docus Yes 1{tbl} Take 1 Ba johnor ate 3- Tablet by [place] (SENOKOT S) 22:27: mouth of 8.6-50 MG 38 daily. Medicin per tablet e Simethicone Yes Take by Regis rojo 80 MG TABS 3-09 mouth. [place] 22:27: of 38 Medicin e Glucagon 1 Yes Inject [facility] MG/0.2ML 05-13 into the [place] SOAJ 22:27: skin. of 38 Medicin e dextrose 50 Yes once. [facility] % injection 05-13 [place] 22:27: of 38 Medicin e Glucose 15 Yes Take by [facility] darnell g PACK - mouth. [place] 22:27: of 38 Medicin e insulin Yes Inject [facility] aspart 05-13 into the [place] (NOVOLOG) 22:27: skin 3 of 100 UNIT/ML 38 times Medicin injection daily e (before meals). Dextran Yes Apply to [facility] 70-Hypromel 05-13 eye. [place] lose 22:27: of (ARTIFICIAL 38 Medicin TEARS) e 0.1-0.3 % SOLN piperacilli Yes 2.25g Inject [facility] n-tazobacta 05-13 2.25 g [facility] m (ZOSYN) 22:27: into the of 2-0.25 38 vein every Medicin GM/50ML 6 hours. e IVPB atorvastati Yes 40mg Take 40 mg [facility] n (LIPITOR) 3-09 by mouth [facility] ege 40 MG 22:27: daily. of tablet 38 Medicin e ferrous Yes 325mg Take 325 [facility] sulfate 325 3-09 mg by [place] (65 Fe) MG 22:27: mouth of tablet 38 daily. Medicin e insulin Yes Inject Ton glargine - into the [place] (LANTUS) 22:27: skin of 100 UNIT/ML 38 nightly. Medi greyson injection e Epoetin Yes Inject as [facility] Bob-epbx 3-09 directed. [facility] (RETACRIT) 22:27: of 3000 38 Medicin UNIT/ML e SOLN SENNA CO Yes by [facility] 2-23 COMBINATIO [place] 21:36: N route. of 53 Medicin e hydrALAZINE Yes 25mg Take 25 mg [facility] (APRESOLINE 2-23 by mouth 3 Co [facility]lege ) 25 MG 21:36: times of tablet 53 daily. Medicin e Sevelamer Yes Take by [facility] or Carbonate 2-23 mouth. [place] 800 MG TABS 21:36: of 53 Medicin e amlodipine Yes 10mg Take 10 mg [facility] (NORVASC) 2-23 by mouth Colleg e 10 MG 21:36: daily. of tablet 53 Medicin e carvedilol Yes 12.5mg Take 12.5 [facility] (COREG) 2-23 mg by [place] 12.5 MG 21:36: mouth 2 of tablet 53 times Medicin daily e (with meals). gabapentin Yes 300mg Take 300 [facility] (NEURONTIN) 2-23 mg by [place] 300 MG 21:36: mouth 3 of capsule 53 times Medicin daily. e ASPIRIN 81 Yes Take by [facility] darnell OR 2-23 mouth. [place] 21:36: of 53 Medicin e Melatonin 3 Yes Take by [facility] MG TABS 2-23 mouth. [place] 21:36: of 53 Medicin e Acetaminoph Yes Take by [facility] en 2-23 mouth two [place] (TYLENOL) 21:36: times of 325 MG CAPS 53 daily. Medici n e Docusate Yes Take by Mcleanlo r Sodium 100 2-23 mouth. [place] MG TABS 21:36: of 53 Medicin e senna-docus Yes 1{tbl} Take 1 [facility] ate 2-23 Tablet by [place] (SENOKOT S) 21:36: mouth of 8.6-50 MG 53 daily. Medicin per tablet e Simethicone 2021-0 Yes Take by [facility] 80 MG TABS 2-23 mouth. [place] 21:36: of 53 Medicin e Glucagon 1 Yes Inject [facility] MG/0.2ML 2-23 into the [place] SOAJ 21:36: skin. of 53 Medicin e dextrose 50 Yes once. [facility] % injection 04-29 College 21:36: of 53 Medicin e Glucose 15 Yes Take by [facility] darnell g PACK 2- mouth. College 21:36: of 53 Medicin e insulin Yes Inject [facility] aspart 2-23 into the [place] (NOVOLOG) 21:36: skin 3 of 100 UNIT/ML 53 times Medicin injection daily e (before meals). Dextran Yes Apply to [facility] 70-Hypromel - eye. [place] lose 21:36: of (ARTIFICIAL 53 Medicin TEARS) e 0.1-0.3 % SOLN piperacilli Yes 2.25g Inject [facility] n-tazobacta 2-23 2.25 g [facility] m (ZOSYN) 21:36: into the of 2-0.25 53 vein every Medicin GM/50ML 6 hours. e IVPB atorvastati Yes 40mg Take 40 mg [facility] n (LIPITOR) 2-23 by mouth [facility] e[facility] 40 MG 21:36: daily. of tablet 53 Medicin e ferrous Yes 325mg Take 325 [facility] sulfate 325 2-23 mg by [place] (65 Fe) MG 21:36: mouth of tablet 53 daily. Medicin e insulin Yes Inject [facility] glargine 2-23 into the [place] (LANTUS) 21:36: skin of 100 UNIT/ML 53 nightly. Medi greyson injection e Epoetin Yes Inject as [facility] Bob-epbx 2-23 directed. [facility] (RETACRIT) 21:36: of 3000 53 Medicin UNIT/ML e SOLN trazodone Yes 50mg Take 50 mg [facility] (DESYREL) 2-11 by mouth Colleg e 50 MG 00:00: daily. of tablet 00 Medicin e trazodone Yes 50mg Take 50 mg [facility] (DESYREL) 2-11 by mouth Colleg e 50 MG 00:00: daily. of tablet 00 Medicin e trazodone 0 Yes 50mg Take 50 mg [facility] (DESYREL) 2-11 by mouth Colleg e 50 MG 00:00: daily. of tablet 00 Medicin e trazodone 0 Yes 50mg Take 50 mg [facility] (DESYREL) 2-11 by mouth [facility] e 50 MG 00:00: daily. of tablet 00 Medicin e trazodone 0 Yes 50mg Take 50 mg [facility] (DESYREL) 2-11 by mouth Colleg e 50 MG 00:00: daily. of tablet 00 Medicin e trazodone Yes 50mg Take 50 mg [facility] (DESYREL) 2-11 by mouth [facility] 50 MG 00:00: daily. of tablet 00 Medicin e trazodone Yes 50mg Take 50 mg [facility] (DESYREL) 2-11 by mouth [facility] e 50 MG 00:00: daily. of tablet 00 Medicin e trazodone Yes 50mg Take 50 mg [facility] (DESYREL) 2-11 by mouth [facility] e 50 MG 00:00: daily. of tablet 00 Medicin e trazodone Yes 50mg Take 50 mg [facility] (DESYREL) 2-11 by mouth [facility] 50 MG 00:00: daily. of tablet Medicin e [facility]ENNA CO [facility] [place] 22:05: N route. of Medicin e hydrALAZINE Yes 25mg Take 25 mg [facility] (APRESOLINE 04-08 by mouth 3 Co [facility]lege ) 25 MG 22:05: times of tablet daily. Medicin e Sevelamer Yes Take by [facility] or Carbonate 04-08 mouth. [place] 800 MG TABS 22:05: of Medicin e amlodipine Yes 10mg Take 10 mg [facility] (NORVASC) 02 by mouth Colleg [facility] 10 MG 22:05: daily. of tablet Medicin e carvedilol Yes 12.5mg Take 12.5 [facility] (COREG) 2-02 mg by [place] 12.5 MG 22:05: mouth 2 of tablet 01 times Medicin daily e (with meals). gabapentin Yes 300mg Take 300 [facility] (NEURONTIN) 2-02 mg by [place] 300 MG 22:05: mouth 3 of capsule 01 times Medicin daily. e ASPIRIN 81 Yes Take by [facility]clean darnell OR 2-02 mouth. [place] 22:05: of Medicin e Melatonin 3 Yes Take by [facility] MG TABS 2-02 mouth. [place] 22:05: of 01 Medicin e Acetaminoph Yes Take by [facility] en 2- mouth [facility] (TYLENOL) 22:05: times of 325 MG CAPS daily. Medici n e Docusate Yes Take by Alvarolo r Sodium 100 2- mouth. [place] MG TABS 22:05: of Medicin e senna-docus Yes 1{tbl} Take 1 [facility] ate 04-08 Tablet by [place] (SENOKOT S) 22:05: mouth of 8.6-50 MG 01 daily. Medicin per tablet e Simethicone Yes Take by [facility] ylor 80 MG TABS 2- mouth. [place] 22:05: of 01 Medicin e Glucagon 1 Yes Inject [facility] MG/0.2ML 04-08 into the [place] SOAJ 22:05: skin. of Medicin e dextrose 50 Yes once. [facility] % injection 04-08 [place] 22:05: of Medicin e Glucose 15 Yes Take by [facility]clean darnell g PACK 04-08 mouth. [place] 22:05: of 01 Medicin e insulin Yes Inject [facility] aspart 04-08 into the [place] (NOVOLOG) 22:05: skin 3 of 100 UNIT/ML 01 times Medicin injection daily e (before meals). Dextran Yes Apply to [facility] 70-Hypromel 04-08 eye. [place] lose 22:05: of (ARTIFICIAL 01 Medicin TEARS) e 0.1-0.3 % SOLN piperacilli Yes 2.25g Inject [facility] n-tazobacta 04-08 2.25 g [facility] m (ZOSYN) 22:05: into the of 2-0.25 01 vein every Medicin GM/50ML 6 hours. e IVPB atorvastati Yes 40mg Take 40 mg Ton n (LIPITOR) 2-02 by mouth [facility]ia ege 40 MG 22:05: daily. of tablet 01 Medicin e ferrous Yes 325mg Take 325 [facility] sulfate 325 2-02 mg by [place] (65 Fe) MG 22:05: mouth of tablet 01 daily. Medicin e insulin Yes Inject Ton glargine 04-08 into the [place] (LANTUS) 22:05: skin of 100 UNIT/ML 01 nightly. Medi greyson injection e Epoetin Yes Inject as [facility] or Bob-epbx 04-08 directed. [facility] (RETACRIT) 22:05: of 3000 01 Medicin UNIT/ML e SOLN Spironolact 2020- No Take by Savannah lemus one 25 04-08- mouth. [place] MG/5ML SUSP 22:05: 00:00 of 01 :00 Medicin e furosemide 0 2020- No 40mg Take 40 mg [facility] (LASIX) 40 04-08- by mouth Alexia ege MG tablet 22:04: 00:00 daily. of 57 :00 Medicin e SENNA CO Yes by [facility] 1-05 [facility] 21:48: N route. of 54 Medicin e furosemide Yes 40mg Take 40 mg [facility] (LASIX) 40 05 by mouth [facility]le [facility] MG tablet 21:48: daily. of 54 Medicin e hydrALAZINE Yes 25mg Take 25 mg [facility] (APRESOLINE 05 by mouth 3 [facility] ) 25 MG 21:48: times of tablet 54 daily. Medicin e Sevelamer Yes Take by Alvaro or Carbonate 105 mouth. [place] 800 MG TABS 21:48: of 54 Medicin e amlodipine Yes 10mg Take 10 mg [facility] (NORVASC) 1-05 by mouth Colleg e 10 MG 21:48: daily. of tablet 54 Medicin e Spironolact Yes Take by [facility] one 25 1-05 mouth. [facility] MG/5ML SUSP 21:48: of 54 Medicin e carvedilol Yes 12.5mg Take 12.5 [facility] (COREG) 1-05 mg by [facility] 12.5 MG 21:48: mouth 2 of tablet 54 times Medicin daily e (with meals). gabapentin Yes 300mg Take 300 [facility] (NEURONTIN) 1-05 mg by [place] 300 MG 21:48: mouth 3 of capsule 54 times Medicin daily. e ASPIRIN 81 Yes Take by Mclean darnell OR 1-05 mouth. [place] 21:48: of 54 Medicin e Spironolact 2019-03 Yes Take by [facility] one 25 0-27 mouth. [facility] MG/5ML SUSP 21:35: of 11 Medicin e carvedilol 2019-03 Yes 12.5mg Take 12.5 [facility] (COREG) 0-27 mg by [place] 12.5 MG 21:35: mouth 2 of tablet 11 times Medicin daily e (with meals). gabapentin 2019-03 Yes 300mg Take 300 [facility] (NEURONTIN) 0-27 mg by [place] 300 MG 21:35: mouth 3 of capsule 11 times Medicin daily. e ASPIRIN 81 2019-03 Yes Take by Mclean darnell OR 0-27 mouth. [place] 21:35: of 11 Medicin e SENNA CO 2019-03 Yes by Ton 0-27 COMBINATIO [place] 21:35: N route. of 11 Medicin e furosemide 2019-03 Yes 40mg Take 40 mg [facility] (LASIX) 40 0-27 by mouth [facility]le [facility] MG tablet 21:35: daily. of 11 Medicin e hydrALAZINE 2019-03 Yes 25mg Take 25 mg [facility] (APRESOLINE 0-27 by mouth 3 Co [facility]lege ) 25 MG 21:35: times of tablet 11 daily. Medicin e Sevelamer 2019-03 Yes Take by [facility] or Carbonate 0-27 mouth. [place] 800 MG TABS 21:35: of 11 Medicin e amlodipine 2019-03 Yes 10mg Take 10 mg [facility] (NORVASC) 0-27 by mouth Colleg e 10 MG 21:35: daily. of tablet 11 Medicin e Spironolact 2019-03 Yes Take by [facility] one 25 0-27 mouth. College MG/5ML SUSP 21:35: of 11 Medicin e carvedilol 2019-03 Yes 12.5mg Take 12.5 [facility] (COREG) 0-27 mg by [place] 12.5 MG 21:35: mouth 2 of tablet 11 times Medicin daily e (with meals). gabapentin 2019-03 Yes 300mg Take 300 [facility] (NEURONTIN) 0-27 mg by [place] 300 MG 21:35: mouth 3 of capsule 11 times Medicin daily. e ASPIRIN 81 2019-03 Yes Take by Mclean darnell OR 0-27 mouth. College 21:35: of 11 Medicin e SENNA CO 2019-03 Yes by [facility] 0-27 [facility] 21:35: N route. of 11 Medicin e furosemide 2019-03 Yes 40mg Take 40 mg [facility] (LASIX) 40 0-27 by mouth [facility]le [facility] MG tablet 21:35: daily. of 11 Medicin e hydrALAZINE 2019-03 Yes 25mg Take 25 mg [facility] (APRESOLINE 0-27 by mouth 3 Co llege ) 25 MG 21:35: times of tablet 11 daily. Medicin e Sevelamer 2019-03 Yes Take by [facility] Carbonate 0-27 mouth. [place] 800 MG TABS 21:35: of 11 Medicin e amlodipine 2019-03 Yes 10mg Take 10 mg [facility] (NORVASC) 0-27 by mouth Colleg e 10 MG 21:35: daily. of tablet 11 Medicin e amoxicillin 2019-03 2020- No 1{tbl} Take 1 Tab [facility] -clavulanat 0-27 10-27 by mouth 3 C [facility] e 20:31: 00:00 times of (AUGMENTIN) 05 :00 daily. Medici n 500-125 MG e per tablet SENNA CO Yes by Ton 9-30 [facility] 19:13: N route. of 16 Medicin e furosemide 0 Yes 40mg Take 40 mg [facility] (LASIX) 40 9-30 by mouth [facility]le [facility] MG tablet 19:13: daily. of 16 Medicin e hydrALAZINE Yes 25mg Take 25 mg [facility] (APRESOLINE 9-30 by mouth 3 Co [facility]lege ) 25 MG 19:13: times of tablet 16 daily. Medicin e Sevelamer 0 Yes Take by [facility] or Carbonate 9-30 mouth. [place] 800 MG TABS 19:13: of 16 Medicin e amlodipine 2020-0 Yes 10mg Take 10 mg [facility] (NORVASC) 9-30 by mouth Colleg e 10 MG 19:13: daily. of tablet 16 Medicin e amoxicillin 2020-0 Yes 1{tbl} Take 1 Tab [facility] -clavulanat 9-30 by mouth 3 [facility]lege e 19:13: times of (AUGMENTIN) 16 daily. Medici n 500-125 MG e per tablet Spironolact 2020-0 Yes Take by [facility] one 25 9-30 mouth. [place] MG/5ML SUSP 19:13: of 16 Medicin e carvedilol 2020-0 Yes 12.5mg Take 12.5 Ton (COREG) 9-30 mg by [place] 12.5 MG 19:13: mouth 2 of tablet 16 times Medicin daily e (with meals). gabapentin 2020-0 Yes 300mg Take 300 [facility] (NEURONTIN) 9-30 mg by [place] 300 MG 19:13: mouth 3 of capsule 16 times Medicin daily. e ASPIRIN 81 2020-0 Yes Take by [facility] [place] 9-30 mouth. [place] 19:13: of 16 Medicin e SENNA CO 2020-0 Yes by [facility] N route[facility] of 32 Medicin e furosemide 2020-0 Yes 40mg Take 40 mg [facility] (LASIX) 40 7-28 by mouth [facility] MG tablet 19:33: daily. of 32 Medicin e hydrALAZINE 2020-0 Yes 25mg Take 25 mg [facility] (APRESOLINE 7-28 by mouth 3 [facility] ) 25 MG 19:33: times of tablet 32 daily. Medicin e Sevelamer 2020-0 Yes Take by [facility] 7-28 mouth. [place] 800 MG TABS 19:33: of 32 Medicin e amlodipine 2020-0 Yes 10mg Take 10 mg [facility] (NORVASC) 7-28 by mouth [facility] 10 MG 19:33: daily. of tablet 32 Medicin e amoxicillin 2020-0 Yes 1{tbl} Take 1 Tab [facility] -clavulanat 7-28 by mouth 3 [facility] e 19:33: times of (AUGMENTIN) 32 daily. Medici n 500-125 MG e per tablet Spironolact 2020-0 Yes Take by [facility] one 25 7-28 mouth. [place] MG/5ML SUSP 19:33: of 32 Medicin e carvedilol 2020-0 Yes 12.5mg Take 12.5 [facility] (COREG) 7-28 mg by [place] 12.5 MG 19:33: mouth 2 of tablet 32 times Medicin daily e (with meals). gabapentin 2020-0 Yes 300mg Take 300 [facility] (NEURONTIN) 7-28 mg by [place] 300 MG 19:33: mouth 3 of capsule 32 times Medicin daily. e ASPIRIN 81 2020-0 Yes Take by [facility] [place] 7-28 mouth. [place] 19:33: of 32 Medicin e SENNA CO 2020-0 Yes by [facility] 6-30 COMBINATIO [place] 19:37: N route. of 20 Medicin e furosemide 2020-0 Yes 40mg Take 40 mg [facility] (LASIX) 40 6-30 by mouth [facility] MG tablet 19:37: daily. of 20 Medicin e hydrALAZINE 2020-0 Yes 25mg Take 25 mg [facility] (APRESOLINE 6-30 by mouth 3 [facility] ) 25 MG 19:37: times of tablet 20 daily. Medicin e Sevelamer 2020-0 Yes Take by [facility] 6-30 mouth. [place] 800 MG TABS 19:37: of 20 Medicin e amlodipine 2020-0 Yes 10mg Take 10 mg [facility] (NORVASC) 6-30 by mouth [facility] 10 MG 19:37: daily. of tablet 20 Medicin e amoxicillin 2020-0 Yes 1{tbl} Take 1 Tab [facility] -clavulanat 6-30 by mouth 3 [facility] e 19:37: times of (AUGMENTIN) 20 daily. Medici n 500-125 MG e per tablet Spironolact 2020-0 Yes Take by [facility] 25 6-30 mouth. [place] MG/5ML SUSP 19:37: of 20 Medicin e carvedilol 2020-0 Yes 12.5mg Take 12.5 [facility] (COREG) 6-30 mg by [place] 12.5 MG 19:37: mouth 2 of tablet 20 times Medicin daily e (with meals). gabapentin 2020-0 Yes 300mg Take 300 [facility] (NEURONTIN) 6-30 mg by [place] 300 MG 19:37: mouth 3 of capsule 20 times Medicin daily. e ASPIRIN 81 2020-0 Yes Take by [facility] [place] 6-30 mouth. [place] 19:37: of 20 Medicin e SENNA CO 2020-0 Yes by [facility] 6-30 COMBINATIO [place] 19:37: N route. of 20 Medicin e furosemide 2020-0 Yes 40mg Take 40 mg [facility] (LASIX) 40 6-30 by mouth [facility] MG tablet 19:37: daily. of 20 Medicin e hydrALAZINE 2020-0 Yes 25mg Take 25 mg [facility] (APRESOLINE 6-30 by mouth 3 [facility] ) 25 MG 19:37: times of tablet 20 daily. Medicin e Sevelamer 2020-0 Yes Take by [facility] 6-30 mouth. [place] 800 MG TABS 19:37: of 20 Medicin e amlodipine 2020-0 Yes 10mg Take 10 mg [facility] (NORVASC) 6-30 by mouth [facility] 10 MG 19:37: daily. of tablet 20 Medicin e amoxicillin 2020-0 Yes 1{tbl} Take 1 Tab [facility] -clavulanat 6-30 by mouth 3 [facility] e 19:37: times of (AUGMENTIN) 20 daily. Medici n 500-125 MG e per tablet Spironolact 2020-0 Yes Take by [facility] 25 6-30 mouth. [place] MG/5ML SUSP 19:37: of 20 Medicin e carvedilol 2020-0 Yes 12.5mg Take 12.5 [facility] (COREG) 6-30 mg by [place] 12.5 MG 19:37: mouth 2 of tablet 20 times Medicin daily e (with meals). gabapentin 2020-0 Yes 300mg Take 300 [facility] (NEURONTIN) 6-30 mg by [place] 300 MG 19:37: mouth 3 of capsule 20 times Medicin daily. e ASPIRIN 81 2020-0 Yes Take by [facility] [place] 6-30 mouth. [place] 19:37: of 20 Medicin e mupirocin 2020-0 Yes Apply 1-2 [facility] (BACTROBAN) 6-30 grams to [facility] 2 % 00:00: affected of ointment 00 area Medicin daily. e mupirocin 2020-0 Yes Apply 1-2 [facility] (BACTROBAN) 6-30 grams to [facility] 2 % 00:00: affected of ointment 00 area Medicin daily. e mupirocin 2020-0 2020- No Apply 1-2 [facility] (BACTROBAN) 6-30 10-27 grams to [facility] 2 % 00:00: 00:00 affected of ointment 00 :00 area Medicin daily. e SENNA CO 2020-0 Yes by [facility] 6-16 COMBINATIO [facility] 18:05: N route. of 34 Medicin e furosemide 2020-0 Yes 40mg Take 40 mg [facility] (LASIX) 40 6-16 by mouth [facility] MG tablet 18:05: daily. of 34 Medicin e hydrALAZINE 2020-0 Yes 25mg Take 25 mg [facility] (APRESOLINE 6-16 by mouth 3 Co [facility] ) 25 MG 18:05: times of tablet 34 daily. Medicin e Sevelamer 2020-0 Yes Take by [facility] 6-16 mouth. [facility] 800 MG TABS 18:05: of 34 Medicin e amlodipine 2020-0 Yes 10mg Take 10 mg [facility] (NORVASC) 6-16 by mouth [facility] 10 MG 18:05: daily. of tablet 34 Medicin e amoxicillin 2020-0 Yes 1{tbl} Take 1 Tab [facility] -clavulanat 6-16 by mouth 3 [facility] e 18:05: times of (AUGMENTIN) 34 daily. Medici n 500-125 MG e per tablet Spironolact 2020-0 Yes Take by [facility] one 25 6-16 mouth. [facility] MG/5ML SUSP 18:05: of 34 Medicin e carvedilol 2020-0 Yes 12.5mg Take 12.5 [facility] (COREG) 6-16 mg by [place] 12.5 MG 18:05: mouth 2 of tablet 34 times Medicin daily e (with meals). gabapentin 2020-0 Yes 300mg Take 300 [facility] (NEURONTIN) 6-16 mg by [place] 300 MG 18:05: mouth 3 of capsule 34 times Medicin daily. e ASPIRIN 81 2020-0 Yes Take by [facility] [place] 6-16 mouth. [place] 18:05: of 34 Medicin e mupirocin 2020-0 Yes Apply 1-2 [facility] (BACTROBAN) 6-04 grams to [facility] 2 % 00:00: affected of ointment 00 area Medicin daily. e mupirocin 2020-0 2020- No Apply 1-2 [facility] (BACTROBAN) 6- 06-30 grams to [facility] 2 % 00:00: 00:00 affected of ointment 00 :00 area Medicin daily. e mupirocin 2019-0 2020- No Apply 1-2 [facility] (BACTROBAN) 6- 06-30 grams to [facility] 2 % 00:00: 00:00 affected of ointment 00 :00 area Medicin daily. e SENNA CO 2020-0 Yes by [facility] 08-06 COMBINATIO [facility] 18:33: N route. of 37 Medicin e furosemide 2019-0 Yes 40mg Take 40 mg [facility] (LASIX) 40 08-06 by mouth [facility] MG tablet 18:33: daily. of 37 Medicin e hydrALAZINE 2019-0 Yes 25mg Take 25 mg [facility] (APRESOLINE 02 by mouth 3 Co [facility] ) 25 MG 18:33: times of tablet 37 daily. Medicin e Sevelamer 2020-0 Yes Take by [facility] 08-06 mouth. [place] 800 MG TABS 18:33: of 37 Medicin e amlodipine 2019-0 Yes 10mg Take 10 mg [facility] (NORVASC) 08-06 by mouth [facility] 10 MG 18:33: daily. of tablet 37 Medicin e amoxicillin 2019-0 Yes 1{tbl} Take 1 Tab [facility] -clavulanat 08-06 by mouth 3 [facility] e 18:33: times of (AUGMENTIN) 37 daily. Medici n 500-125 MG e per tablet Spironolact 2020-0 Yes Take by [facility] one 25 -02 mouth. [place] MG/5ML SUSP 18:33: of 37 Medicin e carvedilol 2020-0 Yes 12.5mg Take 12.5 [facility] (COREG) 6-02 mg by [place] 12.5 MG 18:33: mouth 2 of tablet 37 times Medicin daily e (with meals). gabapentin 2020-0 Yes 300mg Take 300 [facility] (NEURONTIN) 6-02 mg by [place] 300 MG 18:33: mouth 3 of capsule 37 times Medicin daily. e ASPIRIN 81 2020-0 Yes Take by [facility] [place] - mouth. [place] 18:33: of 37 Medicin e SENNA CO 2020-0 Yes by [facility] 5-19 COMBINATIO [place] 19:50: N route. of 17 Medicin e furosemide 2020-0 Yes 40mg Take 40 mg [facility] (LASIX) 40 5-19 by mouth [facility] MG tablet 19:50: daily. of 17 Medicin e hydrALAZINE 2020-0 Yes 25mg Take 25 mg [facility] (APRESOLINE 5-19 by mouth 3 Co [facility] ) 25 MG 19:50: times of tablet 17 daily. Medicin e Sevelamer 2020-0 Yes Take by [facility] 5-19 mouth. [place] 800 MG TABS 19:50: of 17 Medicin e amlodipine 2020-0 Yes 10mg Take 10 mg [facility] (NORVASC) 5-19 by mouth [facility] 10 MG 19:50: daily. of tablet 17 Medicin e amoxicillin 2020-0 Yes 1{tbl} Take 1 Tab [facility] -clavulanat 5-19 by mouth 3 [facility] e 19:50: times of (AUGMENTIN) 17 daily. Medici n 500-125 MG e per tablet Spironolact 2020-0 Yes Take by [facility] one 25 5-19 mouth. [place] MG/5ML SUSP 19:50: of 17 Medicin e carvedilol 2020-0 Yes 12.5mg Take 12.5 [facility] (COREG) 5-19 mg by [place] 12.5 MG 19:50: mouth 2 of tablet 17 times Medicin daily e (with meals). gabapentin 2020-0 Yes 300mg Take 300 [facility] (NEURONTIN) 5-19 mg by [place] 300 MG 19:50: mouth 3 of capsule 17 times Medicin daily. e ASPIRIN 81 2020-0 Yes Take by [facility] [place] 5-19 mouth. [place] 19:50: of 17 Medicin e No known No [facility] V[facility] Signs Vital Name Observation Time Observation Value Comments Source WEIGHT 2020-06-13 81.2 kg 12:30:00 WEIGHT 2020-06-11 84.2 kg 18:42:00 WEIGHT 2020-06-06 86.2 kg 11:38:00 WEIGHT 2020-06-06 89.2 kg 07:45:00 WEIGHT 2020-06-04 82.6 kg 11:45:00 WEIGHT 2020-06-04 85.6 kg 08:07:00 WEIGHT 2020-06-02 83.8 kg 11:04:00 WEIGHT 2020-05-30 83.3 kg 12:00:00 WEIGHT 2020-05-30 85.3 kg 09:15:00 HEIGHT 2020-05-29 185.4 cm 06:00:00 WEIGHT 2020-05-29 85.276 kg 06:00:00 HEIGHT 2020-05-27 182.9 cm 14:51:00 WEIGHT 2020-05-27 86.183 kg 14:51:00 HEIGHT 2019-10-10 185.4 cm 00:00:00 WEIGHT 2019-10-10 110 kg 00:00:00 HEIGHT 2019-09-05 182.9 cm 00:00:00 WEIGHT 2019-09-05 99.791 kg 00:00:00 WEIGHT 2019-12-21 98 kg 15:30:00 WEIGHT 2019-12-21 99.5 kg 12:30:00 WEIGHT 2019-12-19 99.5 kg 13:30:00 WEIGHT 2019-12-17 99.5 kg 11:26:00 WEIGHT 2019-12-14 101.4 kg 16:45:00 HEIGHT 2019-12-05 185.4 cm 20:42:00 HEIGHT 2019-12-05 185.4 cm 00:00:00 WEIGHT 2019-12-05 101.4 kg 00:00:00 HEIGHT 2019-11-05 185.4 cm 00:00:00 WEIGHT 2019-11-05 93 kg 00:00:00 Systolic blood 2020-12-23 161 mm[facility] Diastolic blood 2020-12-23 92 mm[Hg] [facility] ge pressure 20:28:00 of Medicine Heart rate 2020-12-23 89 /min [facility] 20:28:00 of Medicine Body height 2020-12-23 185.4 cm [facility] 20:28:00 of Medicine Body weight 2020-12-23 86.637 kg [facility] 20:28:00 of Medicine BMI 2020-12-23 25.20 kg/m2 [facility] 20:28:00 of Medicine Systolic blood 2020-11-25 147 mm[Hg] [facility] pressure 19:32:00 of Medicine Diastolic blood 2020-11-25 73 mm[Hg] [facility] pressure 19:32:00 of Medicine Heart rate 2020-11-25 61 /min [facility] 19:32:00 of Medicine Respiratory rate 2020-11-25 14 /min [facility] ege 19:32:00 of Medicine Body height 2020-11-25 185.4 cm [facility] 19:32:00 of Medicine Body weight 2020-11-25 87 kg [facility] 19:32:00 of Medicine BMI 2020-11-25 25.30 kg/m2 [facility] 19:32:00 of Medicine Systolic blood 2020-10-28 154 mm[Hg] [facility] pressure 21:32:00 of Medicine Diastolic blood 2020-10-28 77 mm[Hg] [facility] pressure 21:32:00 of Medicine Heart rate 2020-10-28 61 /min [facility] 21:32:00 of Medicine Body height 2020-10-28 182.9 cm [facility] 21:32:00 of Medicine Body weight 2020-10-28 86.637 kg [facility] 21:32:00 of Medicine BMI 2020-10-28 25.90 kg/m2 [facility] 21:32:00 of Medicine Systolic blood 2020-10-14 151 mm[Hg] [facility] pressure 21:20:00 of Medicine Diastolic blood 2020-10-14 77 mm[Hg] [facility] pressure 21:20:00 of Medicine Heart rate 2020-10-14 60 /min [facility] 21:20:00 of Medicine Body height 2020-10-14 182.9 cm [facility] 21:20:00 of Medicine Body weight 2020-10-14 86.637 kg [facility] 21:20:00 of Medicine BMI 2020-10-14 25.90 kg/m2 [facility] 21:20:00 of Medicine WEIGHT 2020-10-03 75.6 kg 18:30:00 WEIGHT 2020-09-26 77.6 kg 19:02:00 WEIGHT 2020-09-26 79.6 kg 16:02:00 WEIGHT 2020-09-24 75.5 kg 17:05:00 WEIGHT 2020-09-22 77.2 kg 15:15:00 WEIGHT 2020-09-22 80.2 kg 12:00:00 WEIGHT 2020-09-19 80.2 kg 18:32:00 WEIGHT 2020-09-19 83.2 kg 14:40:00 WEIGHT 2020-09-17 83.2 kg 20:30:00 WEIGHT 2020-09-17 86.2 kg 17:00:00 HEIGHT 2020-09-17 182.9 cm 11:00:00 WEIGHT 2020-09-17 86.183 kg 11:00:00 HEIGHT 2020-09-16 182.9 cm 18:23:00 WEIGHT 2020-09-16 86.183 kg 18:23:00 WEIGHT 2020-10-03 75.6 kg 18:30:00 WEIGHT 2020-09-26 77.6 kg 19:02:00 WEIGHT 2020-09-26 79.6 kg 16:02:00 WEIGHT 2020-09-24 75.5 kg 17:05:00 WEIGHT 2020-09-22 77.2 kg 15:15:00 WEIGHT 2020-09-22 80.2 kg 12:00:00 WEIGHT 2020-09-19 80.2 kg 18:32:00 WEIGHT 2020-09-19 83.2 kg 14:40:00 WEIGHT 2020-09-17 83.2 kg 20:30:00 WEIGHT 2020-09-17 86.2 kg 17:00:00 HEIGHT 2020-09-17 182.9 cm 11:00:00 WEIGHT 2020-09-17 86.183 kg 11:00:00 HEIGHT 2020-09-16 182.9 cm 18:23:00 WEIGHT 2020-09-16 86.183 kg 18:23:00 Systolic blood 2020-08-19 141 mm[Hg] [facility] Diastolic blood 2020-08-19 71 mm[Hg] [facility] ge pressure 20:25:00 of Medicine Heart rate 2020-08-19 62 /min [facility] 20:25:00 of Medicine Body height 2020-08-19 182.9 cm [facility] 20:25:00 of Medicine Body weight 2020-08-19 84.823 kg [facility] 20:25:00 of Medicine BMI 2020-08-19 25.36 kg/m2 [facility] 20:25:00 of Medicine Systolic blood 2020-08-05 184 mm[Hg] [facility] pressure 18:22:00 of Medicine Diastolic blood 2020-08-05 90 mm[Hg] [facility] pressure 18:22:00 of Medicine Heart rate 2020-08-05 63 /min [facility] 18:22:00 of Medicine Body height 2020-08-05 182.9 cm [facility] 18:22:00 of Medicine Body weight 2020-08-05 84.823 kg [facility] 18:22:00 of Medicine BMI 2020-08-05 25.36 kg/m2 [facility] 18:22:00 of Medicine Systolic blood 2020-07-22 207 mm[Hg] [facility] pressure 18:25:00 of Medicine Diastolic blood 2020-07-22 97 mm[Hg] [facility] pressure 18:25:00 of Medicine Heart rate 2020-07-22 61 /min [facility] 18:25:00 of Medicine Body height 2020-07-22 182.9 cm [facility] 18:25:00 of Medicine Body weight 2020-07-22 84.823 kg [facility] 18:25:00 of Medicine BMI 2020-07-22 25.36 kg/m2 [facility] 18:25:00 of Medicine Systolic blood 2020-06-24 103 mm[Hg] [facility] pressure 20:43:00 of Medicine Diastolic blood 2020-06-24 64 mm[Hg] [facility] pressure 20:43:00 of Medicine Heart rate 2020-06-24 95 /min [facility] 20:43:00 of Medicine Body height 2020-06-24 182.9 cm [facility] 20:43:00 of Medicine Body weight 2020-06-24 85 kg [facility] 20:43:00 of Medicine BMI 2020-06-24 25.41 kg/m2 [facility] 20:43:00 of Medicine WEIGHT 2020-06-13 81.2 kg 12:30:00 WEIGHT 2020-06-11 84.2 kg 18:42:00 WEIGHT 2020-06-06 86.2 kg 11:38:00 WEIGHT 2020-06-06 89.2 kg 07:45:00 WEIGHT 2020-06-04 82.6 kg 11:45:00 WEIGHT 2020-06-04 85.6 kg 08:07:00 WEIGHT 2020-06-02 83.8 kg 11:04:00 WEIGHT 2020-05-30 83.3 kg 12:00:00 WEIGHT 2020-05-30 85.3 kg 09:15:00 HEIGHT 2020-05-29 185.4 cm 06:00:00 WEIGHT 2020-05-29 85.276 kg 06:00:00 HEIGHT 2020-05-27 182.9 cm 14:51:00 WEIGHT 2020-05-27 86.183 kg 14:51:00 Systolic blood 2020-05-20 144 mm[Hg] [facility] pressure 21:14:00 of Medicine Diastolic blood 2020-05-20 81 mm[Hg] [facility] pressure 21:14:00 of Medicine Heart rate 2020-05-20 61 /min [facility] 21:14:00 of Medicine Body height 2020-05-20 182.9 cm [facility] 21:14:00 of Medicine Body weight 2020-05-20 96.616 kg [facility] 21:14:00 of Medicine BMI 2020-05-20 28.89 kg/m2 [facility] 21:14:00 of Medicine Systolic blood 2020-05-20 144 mm[Hg] [facility] pressure 21:14:00 of Medicine Diastolic blood 2020-05-20 81 mm[Hg] [facility] pressure 21:14:00 of Medicine Heart rate 2020-05-20 61 /min [facility] 21:14:00 of Medicine Body height 2020-05-20 182.9 cm [facility] 21:14:00 of Medicine Body weight 2020-05-20 96.616 kg [facility] 21:14:00 of Medicine BMI 2020-05-20 28.89 kg/m2 [facility] 21:14:00 of Medicine Systolic blood 2020-05-13 105 mm[Hg] [facility] pressure 22:27:00 of Medicine Diastolic blood 2020-05-13 65 mm[Hg] [facility] pressure 22:27:00 of Medicine Heart rate 2020-05-13 58 /min [facility] 22:27:00 of Medicine Body height 2020-05-13 182.9 cm [facility] 22:27:00 of Medicine Body weight 2020-05-13 96.616 kg [facility] 22:27:00 of Medicine BMI 2020-05-13 28.89 kg/m2 [facility] 22:27:00 of Medicine Systolic blood 2020-05-13 105 mm[Hg] [facility] pressure 22:27:00 of Medicine Diastolic blood 2020-05-13 65 mm[Hg] [facility] pressure 22:27:00 of Medicine Heart rate 2020-05-13 58 /min [facility] 22:27:00 of Medicine Body height 2020-05-13 182.9 cm [facility] 22:27:00 of Medicine Body weight 2020-05-13 96.616 kg [facility] 22:27:00 of Medicine BMI 2020-05-13 28.89 kg/m2 [facility] 22:27:00 of Medicine Systolic blood 2020-04-29 170 mm[Hg] [facility] pressure 21:36:00 of Medicine Diastolic blood 2020-04-29 94 mm[Hg] [facility] pressure 21:36:00 of Medicine Heart rate 2020-04-29 62 /min [facility] 21:36:00 of Medicine Body height 2020-04-29 182.9 cm [facility] 21:36:00 of Medicine Body weight 2020-04-29 96.616 kg [facility] 21:36:00 of Medicine BMI 2020-04-29 28.89 kg/m2 [facility] 21:36:00 of Medicine Systolic blood 2020-04-29 170 mm[Hg] [facility] pressure 21:36:00 of Medicine Diastolic blood 2020-04-29 94 mm[Hg] [facility] pressure 21:36:00 of Medicine Heart rate 2020-04-29 62 /min [facility] 21:36:00 of Medicine Body height 2020-04-29 182.9 cm [facility] 21:36:00 of Medicine Body weight 2020-04-29 96.616 kg [facility] 21:36:00 of Medicine BMI 2020-04-29 28.89 kg/m2 [facility] 21:36:00 of Medicine Systolic blood 2020-04-08 163 mm[Hg] [facility] pressure 21:53:00 of Medicine Diastolic blood 2020-04-08 76 mm[Hg] [facility] pressure 21:53:00 of Medicine Heart rate 2020-04-08 65 /min [facility] 21:53:00 of Medicine Body height 2020-04-08 182.9 cm [facility] 21:53:00 of Medicine Body weight 2020-04-08 96.616 kg unable to stand [facility] 21:53:00 of Medicine BMI 2020-04-08 28.89 kg/m2 [facility] 21:53:00 of Medicine Systolic blood 2020-04-08 163 mm[Hg] [facility] pressure 21:53:00 of Medicine Diastolic blood 2020-04-08 76 mm[Hg] [facility] pressure 21:53:00 of Medicine Heart rate 2020-04-08 65 /min [facility] 21:53:00 of Medicine Body height 2020-04-08 182.9 cm [facility] 21:53:00 of Medicine Body weight 2020-04-08 96.616 kg unable to stand [facility] 21:53:00 of Medicine BMI 2020-04-08 28.89 kg/m2 [facility] 21:53:00 of Medicine WEIGHT 2020-03-26 79.3 kg 18:15:00 WEIGHT 2020-03-24 81.8 kg 17:30:00 WEIGHT 2020-03-21 84.8 kg 11:00:00 WEIGHT 2020-03-21 86.8 kg 08:00:00 WEIGHT 2020-03-19 86.8 kg 10:58:00 WEIGHT 2020-03-19 89.8 kg 07:35:00 WEIGHT 2020-03-17 93.8 kg 11:15:00 WEIGHT 2020-03-17 95.8 kg 08:15:00 WEIGHT 2020-03-14 95.8 kg 18:55:00 HEIGHT 2020-03-11 185.4 cm 20:50:00 WEIGHT 2020-03-11 97.796 kg 20:50:00 WEIGHT 2020-03-26 79.3 kg 18:15:00 WEIGHT 2020-03-24 81.8 kg 17:30:00 WEIGHT 2020-03-21 84.8 kg 11:00:00 WEIGHT 2020-03-21 86.8 kg 08:00:00 WEIGHT 2020-03-19 86.8 kg 10:58:00 WEIGHT 2020-03-19 89.8 kg 07:35:00 WEIGHT 2020-03-17 93.8 kg 11:15:00 WEIGHT 2020-03-17 95.8 kg 08:15:00 WEIGHT 2020-03-14 95.8 kg 18:55:00 HEIGHT 2020-03-11 185.4 cm 20:50:00 WEIGHT 2020-03-11 97.796 kg 20:50:00 Systolic blood 2020-03-11 144 mm[Hg] [facility] pressure 21:44:00 of Medicine Diastolic blood 2020-03-11 86 mm[Hg] [facility] pressure 21:44:00 of Medicine Heart rate 2020-03-11 74 /min [facility] 21:44:00 of Medicine Body height 2020-03-11 182.9 cm [facility] 21:44:00 of Medicine Body weight 2020-03-11 96.616 kg unable to stand [facility] 21:44:00 of Medicine BMI 2020-03-11 28.89 kg/m2 [facility] 21:44:00 of Medicine Systolic blood 2020-03-11 144 mm[Hg] [facility] pressure 21:44:00 of Medicine Diastolic blood 2020-03-11 86 mm[Hg] [facility] pressure 21:44:00 of Medicine Heart rate 2020-03-11 74 /min [facility] 21:44:00 of Medicine Body height 2020-03-11 182.9 cm [facility] 21:44:00 of Medicine Body weight 2020-03-11 96.616 kg unable to stand [facility] 21:44:00 of Medicine BMI 2020-03-11 28.89 kg/m2 [facility] 21:44:00 of Medicine WEIGHT 2020-01-21 91.4 kg 15:15:00 WEIGHT 2020-01-18 95 kg 23:00:00 WEIGHT 2020-01-16 97 kg 16:57:00 WEIGHT 2020-01-09 100 kg 09:15:00 WEIGHT 2020-01-09 102.9 kg 06:15:00 WEIGHT 2020-01-07 101.3 kg 18:45:00 WEIGHT 2020-01-06 101.334 kg 23:37:00 HEIGHT 2020-01-06 170.2 cm 16:05:00 WEIGHT 2020-01-06 97 kg 16:05:00 WEIGHT 2020-01-21 91.4 kg 15:15:00 WEIGHT 2020-01-18 95 kg 23:00:00 WEIGHT 2020-01-16 97 kg 16:57:00 WEIGHT 2020-01-09 100 kg 09:15:00 WEIGHT 2020-01-09 102.9 kg 06:15:00 WEIGHT 2020-01-07 101.3 kg 18:45:00 WEIGHT 2020-01-06 101.334 kg 23:37:00 HEIGHT 2020-01-06 170.2 cm 16:05:00 WEIGHT 2020-01-06 97 kg 16:05:00 Systolic blood 2020-01-01 154 mm[Hg] [facility] pressure 21:34:00 of Medicine Diastolic blood 2020-01-01 79 mm[Hg] [facility] pressure 21:34:00 of Medicine Heart rate 2020-01-01 67 /min [facility] 21:34:00 of Medicine Body weight 2020-01-01 96.616 kg [facility] 21:34:00 of Medicine BMI 2020-01-01 32.39 kg/m2 [facility] 21:34:00 of Medicine Systolic blood 2020-01-01 154 mm[Hg] [facility] pressure 21:34:00 of Medicine Diastolic blood 2020-01-01 79 mm[Hg] [facility] pressure 21:34:00 of Medicine Heart rate 2020-01-01 67 /min [facility] 21:34:00 of Medicine Body weight 2020-01-01 96.616 kg [facility] 21:34:00 of Medicine BMI 2020-01-01 32.39 kg/m2 [facility] 21:34:00 of Medicine Systolic blood 2020-01-01 154 mm[Hg] [facility] pressure 20:24:00 of Medicine Diastolic blood 2020-01-01 79 mm[Hg] [facility] pressure 20:24:00 of Medicine Heart rate 2020-01-01 67 /min [facility] 20:24:00 of Medicine Body height 2020-01-01 172.7 cm [facility] 20:24:00 of Medicine Body weight 2020-01-01 97 kg [facility] 20:24:00 of Medicine BMI 2020-01-01 32.52 kg/m2 [facility] 20:24:00 of Medicine Systolic blood 2020-01-01 154 mm[Hg] [facility] pressure 20:24:00 of Medicine Diastolic blood 2020-01-01 79 mm[Hg] [facility] pressure 20:24:00 of Medicine Heart rate 2020-01-01 67 /min [facility] 20:24:00 of Medicine Body height 2020-01-01 172.7 cm [facility] 20:24:00 of Medicine Body weight 2020-01-01 97 kg [facility] 20:24:00 of Medicine BMI 2020-01-01 32.52 kg/m2 [facility] 20:24:00 of Medicine WEIGHT 2019-12-21 98 kg 15:30:00 WEIGHT 2019-12-21 99.5 kg 12:30:00 WEIGHT 2019-12-19 99.5 kg 13:30:00 WEIGHT 2019-12-17 99.5 kg 11:26:00 WEIGHT 2019-12-14 101.4 kg 16:45:00 HEIGHT 2019-12-05 185.4 cm 20:42:00 HEIGHT 2019-12-05 185.4 cm 00:00:00 WEIGHT 2019-12-05 101.4 kg 00:00:00 Systolic blood 2019-12-05 127 mm[Hg] [facility] pressure 19:12:00 of Medicine Diastolic blood 2019-12-05 77 mm[Hg] [facility] pressure 19:12:00 of Medicine Heart rate 2019-12-05 67 /min [facility] 19:12:00 of Medicine Body height 2019-12-05 172.7 cm [facility] 19:12:00 of Medicine Body weight 2019-12-05 104.327 kg [facility] 19:12:00 of Medicine BMI 2019-12-05 34.97 kg/m2 [facility] 19:12:00 of Medicine Systolic blood 2019-12-05 127 mm[Hg] [facility] [employer] pressure 19:12:00 of Medicine Diastolic blood 2019-12-05 77 mm[Hg] [facility] pressure 19:12:00 of Medicine Heart rate 2019-12-05 67 /min [facility] 19:12:00 of Medicine Body height 2019-12-05 172.7 cm [facility] 19:12:00 of Medicine Body weight 2019-12-05 104.327 kg [facility] 19:12:00 of Medicine BMI 2019-12-05 34.97 kg/m2 [facility] 19:12:00 of Medicine HEIGHT 2019-11-05 185.4 cm 00:00:00 WEIGHT 2019-11-05 93 kg 00:00:00 HEIGHT 2019-10-10 185.4 cm 00:00:00 WEIGHT 2019-10-10 110 kg 00:00:00 Systolic blood 2019-10-02 202 mm[Hg] [employer] pressure 19:32:00 of Medicine Diastolic blood 2019-10-02 110 mm[Hg] [facility] pressure 19:32:00 of Medicine Heart rate 2019-10-02 67 /min [facility] 19:32:00 of Medicine Body height 2019-10-02 172.7 cm [facility] 19:32:00 of Medicine Body weight 2019-10-02 104.327 kg [facility] 19:32:00 of Medicine BMI 2019-10-02 34.97 kg/m2 [facility] 19:32:00 of Medicine Systolic blood 2019-10-02 202 mm[Hg] [facility] [employer] pressure 19:32:00 of Medicine Diastolic blood 2019-10-02 110 mm[Hg] [facility] pressure 19:32:00 of Medicine Heart rate 2019-10-02 67 /min [facility] 19:32:00 of Medicine Body height 2019-10-02 172.7 cm [facility] 19:32:00 of Medicine Body weight 2019-10-02 104.327 kg [facility] 19:32:00 of Medicine BMI 2019-10-02 34.97 kg/m2 [facility] 19:32:00 of Medicine Systolic blood 2019-09-04 165 mm[Hg] [facility] [employer] pressure 19:36:00 of Medicine Diastolic blood 2019-09-04 91 mm[Hg] [employer] [facility] 19:36:00 of Medicine Heart rate 2019-09-04 70 /min [facility] 19:36:00 of Medicine Body height 2019-09-04 172.7 cm [facility] 19:36:00 of Medicine Body weight 2019-09-04 104.327 kg [facility] 19:36:00 of Medicine BMI 2019-09-04 34.97 kg/m2 [facility] 19:36:00 of Medicine Systolic blood 2019-09-04 165 mm[Hg] [employer] pressure 19:36:00 of Medicine Diastolic blood 2019-09-04 91 mm[Hg] [employer] [facility] 19:36:00 of Medicine Heart rate 2019-09-04 70 /min [facility] 19:36:00 of Medicine Body height 2019-09-04 172.7 cm [facility] 19:36:00 of Medicine Body weight 2019-09-04 104.327 kg [facility] 19:36:00 of Medicine BMI 2019-09-04 34.97 kg/m2 [facility] 19:36:00 of Medicine Systolic blood 2019-09-04 165 mm[Hg] [employer] pressure 19:29:00 of Medicine Diastolic blood 2019-09-04 91 mm[Hg] [facility] pressure 19:29:00 of Medicine Heart rate 2019-09-04 70 /min [facility] 19:29:00 of Medicine Body height 2019-09-04 172.7 cm [facility] 19:29:00 of Medicine Body weight 2019-09-04 104.327 kg [facility] 19:29:00 of Medicine BMI 2019-09-04 34.97 kg/m2 [facility] 19:29:00 of Medicine Systolic blood 2019-09-04 165 mm[Hg] [facility] [employer] pressure 19:29:00 of Medicine Diastolic blood 2019-09-04 91 mm[Hg] [employer] [facility] 19:29:00 of Medicine Heart rate 2019-09-04 70 /min [facility] 19:29:00 of Medicine Body height 2019-09-04 172.7 cm [facility] 19:29:00 of Medicine Body weight 2019-09-04 104.327 kg [facility] 19:29:00 of Medicine BMI 2019-09-04 34.97 kg/m2 [facility] 19:29:00 of Medicine Systolic blood 2019-08-21 137 mm[Hg] [employer] [facility] 18:04:00 of Medicine Diastolic blood 2019-08-21 77 mm[Hg] [employer] [facility] 18:04:00 of Medicine Heart rate 2019-08-21 72 /min [facility] 18:04:00 of Medicine Body height 2019-08-21 172.7 cm [facility] 18:04:00 of Medicine Body weight 2019-08-21 104.327 kg [facility] 18:04:00 of Medicine BMI 2019-08-21 34.97 kg/m2 [facility] 18:04:00 of Medicine Systolic blood 2019-08-21 137 mm[Hg] [facility] [employer] pressure 18:04:00 of Medicine Diastolic blood 2019-08-21 77 mm[Hg] [facility] pressure 18:04:00 of Medicine Heart rate 2019-08-21 72 /min [facility] 18:04:00 of Medicine Body height 2019-08-21 172.7 cm [facility] 18:04:00 of Medicine Body weight 2019-08-21 104.327 kg [facility] 18:04:00 of Medicine BMI 2019-08-21 34.97 kg/m2 [facility] 18:04:00 of Medicine Systolic blood 2019-08-07 148 mm[Hg] [facility] [employer] pressure 18:34:00 of Medicine Diastolic blood 2019-08-07 77 mm[Hg] [employer] [facility] 18:34:00 of Medicine Heart rate 2019-08-07 65 /min [facility] 18:34:00 of Medicine Body height 2019-08-07 172.7 cm [facility] 18:34:00 of Medicine Body weight 2019-08-07 104.327 kg [facility] 18:34:00 of Medicine BMI 2019-08-07 34.97 kg/m2 [facility] 18:34:00 of Medicine Systolic blood 2019-08-07 148 mm[Hg] [employer] [facility] 18:34:00 of Medicine Diastolic blood 2019-08-07 77 mm[Hg] [employer] [facility] 18:34:00 of Medicine Heart rate 2019-08-07 65 /min [facility] 18:34:00 of Medicine Body height 2019-08-07 172.7 cm [facility] 18:34:00 of Medicine Body weight 2019-08-07 104.327 kg [facility] 18:34:00 of Medicine BMI 2019-08-07 34.97 kg/m2 [facility] 18:34:00 of Medicine Systolic blood 2019-07-24 146 mm[Hg] [facility] [employer] pressure 18:50:00 of Medicine Diastolic blood 2019-07-24 80 mm[Hg] [employer] [facility] 18:50:00 of Medicine Heart rate 2019-07-24 68 /min [facility] 18:50:00 of Medicine Body height 2019-07-24 172.7 cm [facility] 18:50:00 of Medicine Body weight 2019-07-24 104.327 kg [facility] 18:50:00 of Medicine BMI 2019-07-24 34.97 kg/m2 [facility] 18:50:00 of Medicine Systolic blood 2019-07-24 146 mm[Hg] [employer] [facility] 18:50:00 of Medicine Diastolic blood 2019-07-24 80 mm[Hg] [employer] [facility] 18:50:00 of Medicine Heart rate 2019-07-24 68 /min [facility] 18:50:00 of Medicine Body height 2019-07-24 172.7 cm [facility] 18:50:00 of Medicine Body weight 2019-07-24 104.327 kg [facility] 18:50:00 of Medicine BMI 2019-07-24 34.97 kg/m2 [facility] 18:50:00 of Medicine Systolic blood 2019-07-17 130 mm[Hg] [employer] [facility] 16:32:00 of Medicine Diastolic blood 2019-07-17 51 mm[Hg] [facility] pressure 16:32:00 of Medicine Heart rate 2019-07-17 68 /min [facility] 16:32:00 of Medicine Body height 2019-07-17 172.7 cm [facility] 16:32:00 of Medicine Body weight 2019-07-17 104.327 kg [facility] 16:32:00 of Medicine BMI 2019-07-17 34.97 kg/m2 [facility] 16:32:00 of Medicine Systolic blood 2019-07-17 130 mm[Hg] [facility] [employer] pressure 16:32:00 of Medicine Diastolic blood 2019-07-17 51 mm[Hg] [employer] [facility] 16:32:00 of Medicine Heart rate 2019-07-17 68 /min [facility] 16:32:00 of Medicine Body height 2019-07-17 172.7 cm [facility] 16:32:00 of Medicine Body weight 2019-07-17 104.327 kg [facility] 16:32:00 of Medicine BMI 2019-07-17 34.97 kg/m2 [facility] 16:32:00 of Medicine Systolic blood 2019-07-10 126 mm[Hg] [employer] [facility] 20:16:00 of Medicine Diastolic blood 2019-07-10 72 mm[Hg] [facility] pressure 20:16:00 of Medicine Heart rate 2019-07-10 86 /min [facility] 20:16:00 of Medicine Body height 2019-07-10 172.7 cm [facility] 20:16:00 of Medicine Body weight 2019-07-10 104.327 kg [facility] 20:16:00 of Medicine BMI 2019-07-10 34.97 kg/m2 [facility] 20:16:00 of Medicine Systolic blood 2019-07-10 126 mm[Hg] [facility] Medicine Diastolic blood 2019-07-10 72 mm[Hg] [facility] pressure 20:16:00 of Medicine Heart rate 2019-07-10 86 /min [facility] 20:16:00 of Medicine Body height 2019-07-10 172.7 cm [facility] 20:16:00 of Medicine Body weight 2019-07-10 104.327 kg [facility] 20:16:00 of Medicine BMI 2019-07-10 34.97 kg/m2 [facility] 20:16:00 of Medicine Procedures Procedure Date / Time Performed Performing Clinician [facility] bessy [id number] 2020-04-12 00:00:00 ENCPL 21501T5 2020-04-12 00:00:00 ENCPL 82515Z6 2020-04-12 00:00:00 ENCPL 76379G5 2020-04-12 00:00:00 ENCPL 27593W3 2020-04-12 00:00:00 ENCPL 89648C5 2020-04-12 00:00:00 ENCPL 4S0K16D 2020-03-28 00:00:00 ENCPL 2O3O69U 2020-03-28 00:00:00 ENCPL 9P0O29T 2020-03-28 00:00:00 ENCPL 8A7O18R 2020-03-28 00:00:00 ENCPL 8J0G91N 2020-03-28 00:00:00 ENCPL 5C2L18V 2020-03-28 00:00:00 ENCPL 4N3U23H 2020-03-28 00:00:00 ENCPL 0Z3X74Z 2020-03-28 00:00:00 ENCPL 7Q6T37D 2020-03-28 00:00:00 ENCPL 6H5H46K 2020-03-28 00:00:00 ENCPL 8D1L86L 2020-03-28 00:00:00 ENCPL 2Z4E68F 2020-03-28 00:00:00 ENCPL 4F7S38E 2020-03-28 00:00:00 ENCPL 4L5T32P 2020-03-28 00:00:00 ENCPL 5E8M53K 2020-03-28 00:00:00 ENCPL 5K6P46J 2020-03-28 00:00:00 ENCPL 4A2J38N 2020-03-28 00:00:00 ENCPL 5G1Z60W 2020-03-28 00:00:00 ENCPL 8U3Y95S 2020-03-28 00:00:00 ENCPL 7S6C00V 2020-03-28 00:00:00 ENCPL 6J2B28S 2020-03-28 00:00:00 ENCPL 0B7O21H 2020-03-28 00:00:00 ENCPL 6J1H06P 2020-03-28 00:00:00 ENCPL 4Z0G08R 2020-03-28 00:00:00 ENCPL 4G3H63R 2019-06-29 00:00:00 ENCPL 8Y1Z94P 2019-06-29 00:00:00 ENCPL 0L5Z59B 2019-06-29 00:00:00 ENCPL 3B7C43U 2019-06-29 00:00:00 ENCPL 5G5W33P 2019-06-29 00:00:00 ENCPL 5T0Q49Q 2019-06-29 00:00:00 ENCPL Plan of Care Planned Activity Planned Date Details Comments Source Future Scheduled 2021-01-04 MA DEBRIDEMENT, SKIN, Ordered: [facility] Test 21:20:15 SUB-Q TISSUE,=<20 SQ CM 01/04/2021 of M edicine [code = 45366] Future Scheduled 2021-01-04 Screening for malignant [facility] Test 21:13:01 neoplasm of colon of Medicin e (procedure) [code = 485223784] Future Scheduled 2021-01-04 COVID-19 Vaccine (1) [facility] 21:13:01 [code = COVID-19 of Medicine Vaccine (1)] Future Scheduled 2021-01-04 TETANUS SHOT (ADULT) [facility] Test 21:13:01 [code = TETANUS SHOT of Medi cine (ADULT)] Future Scheduled 2021-01-04 Diabetic foot [facility] Test 21:13:01 examination of Medicine (regime/therapy) [code = 450740039] Future Scheduled 2021-01-04 ANNUAL DIABETIC [facility] Test 21:13:01 RETINOPATHY SCREENING of Med jovine [code = ANNUAL DIABETIC RETINOPATHY SCREENING] Future Scheduled 2021-01-04 Hepatitis C screening [facility] Test 21:13:01 (procedure) [code = of Medic ine 202431118] Future Scheduled 2021-01-04 Human immunodeficiency [facility] Test 21:13:01 virus screening of Medicine (procedure) [code = 641981069] Future Scheduled 2021-01-04 ZOSTER VACCINE (1 of 2) [facility] Test 21:13:01 [code = ZOSTER VACCINE of [place] (1 of 2)] Future Scheduled 2021-01-04 MEDICARE AWV (Initial) [facility] Test 21:13:01 [code = MEDICARE AWV of [employer] (Initial)] Future Scheduled 2021-01-04 FLU VACCINE > 6 MONTHS [facility] Test 21:13:01 [code = FLU VACCINE > 6 of [facility] MONTHS] Future Scheduled 2021-01-04 BMI FOLLOW UP PLAN [facility] Test 21:13:01 [code = BMI FOLLOW UP of Med icine PLAN] Future Scheduled 2020-12-03 MA DEBRIDEMENT OPEN Ordered: [facility] Test 09:58:36 WOUND 20 SQ CM< [code = 12/03/2020 of edicine 87214] Future Scheduled 2020-12-03 MA DEBRIDEMENT OPEN Ordered: [facility] Test 09:58:36 WOUND 20 SQ CM< [code = 12/03/2020 of edicine 40715] Future Scheduled 2020-12-03 Screening for malignant [facility] Test 09:53:42 neoplasm of colon of Medicin e (procedure) [code = 613726271] Future Scheduled 2020-12-03 COVID-19 Vaccine (1) [facility] Test 09:53:42 [code = COVID-19 of Medicine Vaccine (1)] Future Scheduled 2020-12-03 TETANUS SHOT (ADULT) [facility] Test 09:53:42 [code = TETANUS SHOT of Medi cine (ADULT)] Future Scheduled 2020-12-03 Diabetic foot [facility] [employer] Test 09:53:42 examination of Medicine (regime/therapy) [code = 762018170] Future Scheduled 2020-12-03 ANNUAL DIABETIC [facility] Test 09:53:42 RETINOPATHY SCREENING of Med icine [code = ANNUAL DIABETIC RETINOPATHY SCREENING] Future Scheduled 2020-12-03 Hepatitis C screening [employer] Test 09:53:42 (procedure) [code = of Medic ine 000941066] Future Scheduled 2020-12-03 [facility] of Medicine (procedure) [code = 002629031] Future Scheduled 2020-12-03 ZOSTER VACCINE (1 of 2) [facility] Test 09:53:42 [code = ZOSTER VACCINE of Me dicine (1 of 2)] Future Scheduled 2020-12-03 MEDICARE AWV (Initial) [facility] Test 09:53:42 [code = MEDICARE AWV of Medi cine (Initial)] Future Scheduled 2020-12-03 FLU VACCINE > 6 MONTHS [facility] Test 09:53:42 [code = FLU VACCINE > 6 of M edicine MONTHS] Future Scheduled 2020-12-03 BMI FOLLOW UP PLAN [facility] Test 09:53:42 [code = BMI FOLLOW UP of Med icine PLAN] Future Scheduled 2020-12-03 Screening for malignant [facility] Test 09:53:42 neoplasm of colon of Medicin e (procedure) [code = 067642591] Future Scheduled 2020-12-03 COVID-19 Vaccine (1) [facility] Test 09:53:42 [code = COVID-19 of Medicine Vaccine (1)] Future Scheduled 2020-12-03 TETANUS SHOT (ADULT) [facility] Test 09:53:42 [code = TETANUS SHOT of Medi cine (ADULT)] Future Scheduled 2020-12-03 Diabetic foot [facility] Test 09:53:42 examination of Medicine (regime/therapy) [code = 798911808] Future Scheduled 2020-12-03 ANNUAL DIABETIC [facility] Test 09:53:42 RETINOPATHY SCREENING of Med icine [code = ANNUAL DIABETIC RETINOPATHY SCREENING] Future Scheduled 2020-12-03 Hepatitis C screening [employer] Test 09:53:42 (procedure) [code = of Medic ine 314694399] Future Scheduled 2020-12-03 Human immunodeficiency [facility] [employer] Test 09:53:42 virus screening of Medicine (procedure) [code = 800175033] Future Scheduled 2020-12-03 ZOSTER VACCINE (1 of 2) [facility] [employer] Test 09:53:42 [code = ZOSTER VACCINE of Me dicine (1 of 2)] Future Scheduled 2020-12-03 MEDICARE AWV (Initial) [facility] [employer] Test 09:53:42 [code = MEDICARE AWV of Medi cine (Initial)] Future Scheduled 2020-12-03 FLU VACCINE > 6 MONTHS [facility] [employer] Test 09:53:42 [code = FLU VACCINE > 6 of M edicine MONTHS] Future Scheduled 2020-12-03 BMI FOLLOW UP PLAN [facility] Test 09:53:42 [code = BMI FOLLOW UP of Med icine PLAN] Future Scheduled 2020-11-25 WOUND CARE INSTRUCTIONS Ordered: [facility] Test 16:09:42 [code = 17162] 11/25/2020 of Medicine Future Scheduled 2020-11-25 WOUND CARE INSTRUCTIONS Ordered: [facility] Test 16:09:42 [code = 35336] 11/25/2020 of Medicine Future Scheduled 2020-11-03 MA DRAINAGE OF Ordered: [facility] Test 12:26:16 HEMATOMA/FLUID [code = 11/03/2020 of Me dicine 33762] Future Scheduled 2020-11-03 MA DEBRIDEMENT OPEN Ordered: [facility] Test 12:26:16 WOUND 20 SQ CM< [code = 11/03/2020 of M edicine 65711] Future Scheduled 2020-11-03 Hepatitis C screening [facility] Test 09:36:18 (procedure) [code = of Medic ine 534637821] Future Scheduled 2020-11-03 Human immunodeficiency [facility] Test 09:36:18 virus screening of Medicine (procedure) [code = 859516696] Future Scheduled 2020-11-03 ZOSTER VACCINE (1 of 2) [facility] [employer] Test 09:36:18 [code = ZOSTER VACCINE of Me dicine (1 of 2)] Future Scheduled 2020-11-03 MEDICARE AWV (Initial) [facility] [employer] Test 09:36:18 [code = MEDICARE AWV of Medi cine (Initial)] Future Scheduled 2020-11-03 FLU VACCINE > 6 MONTHS [facility] [employer] Test 09:36:18 [code = FLU VACCINE > 6 of M edicine MONTHS] Future Scheduled 2020-11-03 BMI FOLLOW UP PLAN [facility] Test 09:36:18 [code = BMI FOLLOW UP of Med icine PLAN] Future Scheduled 2020-11-03 Screening for malignant [facility] Test 09:36:18 neoplasm of colon of Medicin e (procedure) [code = 074847241] Future Scheduled 2020-11-03 COVID-19 Vaccine (1) [facility] Test 09:36:18 [code = COVID-19 of Medicine Vaccine (1)] Future Scheduled 2020-11-03 TETANUS SHOT (ADULT) [facility] Test 09:36:18 [code = TETANUS SHOT of Medi cine (ADULT)] Future Scheduled 2020-11-03 Diabetic foot [facility] Test 09:36:18 examination of Medicine (regime/therapy) [code = 194134323] Future Scheduled 2020-11-03 ANNUAL DIABETIC [facility] Test 09:36:18 RETINOPATHY SCREENING of Med icine [code = ANNUAL DIABETIC RETINOPATHY SCREENING] Future Scheduled 2020-10-28 WOUND CARE INSTRUCTIONS Ordered: [facility] Test 17:23:33 [code = 16271] 10/28/2020 of Medicine Future Scheduled 2020-10-26 Screening for malignant [facility] Test 23:34:24 neoplasm of colon of Medicin e (procedure) [code = 537330119] Future Scheduled 2020-10-26 COVID-19 Vaccine (1) [facility] Test 23:34:24 [code = COVID-19 of Medicine Vaccine (1)] Future Scheduled 2020-10-26 TETANUS SHOT (ADULT) [facility] Test 23:34:24 [code = TETANUS SHOT of Medi cine (ADULT)] Future Scheduled 2020-10-26 Diabetic foot [facility] Test 23:34:24 examination of Medicine (regime/therapy) [code = 644564443] Future Scheduled 2020-10-26 ANNUAL DIABETIC [facility] Test 23:34:24 RETINOPATHY SCREENING of Med icine [code = ANNUAL DIABETIC RETINOPATHY SCREENING] Future Scheduled 2020-10-26 Hepatitis C screening [facility] Test 23:34:24 (procedure) [code = of Medic ine 855982954] Future Scheduled 2020-10-26 Human immunodeficiency [facility] [employer] Test 23:34:24 virus screening of Medicine (procedure) [code = 256721685] Future Scheduled 2020-10-26 ZOSTER VACCINE (1 of 2) [facility] Test 23:34:24 [code = ZOSTER VACCINE of Me dicine (1 of 2)] Future Scheduled 2020-10-26 MEDICARE AWV (Initial) [facility] Test 23:34:24 [code = MEDICARE AWV of Medi cine (Initial)] Future Scheduled 2020-10-26 FLU VACCINE > 6 MONTHS [facility] Test 23:34:24 [code = FLU VACCINE > 6 of M edicine MONTHS] Future Scheduled 2020-10-26 BMI FOLLOW UP PLAN [facility] Test 23:34:24 [code = BMI FOLLOW UP of Med icine PLAN] Future Scheduled 2020-09-02 Screening for malignant [facility] Test 18:54:49 neoplasm of colon of Medicin e (procedure) [code = 381216062] Future Scheduled 2020-09-02 COVID-19 Vaccine (1) [facility] Test 18:54:49 [code = COVID-19 of Medicine Vaccine (1)] Future Scheduled 2020-09-02 TETANUS SHOT (ADULT) [facility] Test 18:54:49 [code = TETANUS SHOT of Medi cine (ADULT)] Future Scheduled 2020-09-02 Diabetic foot [facility] Test 18:54:49 examination of Medicine (regime/therapy) [code = 422466450] Future Scheduled 2020-09-02 ANNUAL DIABETIC [facility] Test 18:54:49 RETINOPATHY SCREENING of Med icine [code = ANNUAL DIABETIC RETINOPATHY SCREENING] Future Scheduled 2020-09-02 Hepatitis C screening [facility] Test 18:54:49 (procedure) [code = of Medic ine 572229258] Future Scheduled 2020-09-02 Human immunodeficiency [facility] Test 18:54:49 virus screening of Medicine (procedure) [code = 130238128] Future Scheduled 2020-09-02 ZOSTER VACCINE (1 of 2) [facility] Test 18:54:49 [code = ZOSTER VACCINE of Me dicine (1 of 2)] Future Scheduled 2020-09-02 MEDICARE AWV (Initial) [facility] Test 18:54:49 [code = MEDICARE AWV of Medi cine (Initial)] Future Scheduled 2020-09-02 FLU VACCINE > 6 MONTHS [facility] Test 18:54:49 [code = FLU VACCINE > 6 of M edicine MONTHS] Future Scheduled 2020-09-02 BMI FOLLOW UP PLAN [facility] Test 18:54:49 [code = BMI FOLLOW UP of Med icine PLAN] Future Scheduled 2020-08-19 WOUND CARE INSTRUCTIONS Ordered: [facility] Test 16:42:50 [code = 46620] 08/19/2020 of Medicine Future Scheduled 2020-08-10 MA DEBRIDEMENT, SKIN, Ordered: [facility] Test 12:01:06 SUB-Q 08/10/2020 of Medicine TISSUE,MUSCLE,=<20 SQ CM [code = 54805] Future Scheduled 2020-08-10 Screening for malignant [facility] Test 11:57:36 neoplasm of colon of Medicin e (procedure) [code = 379374097] Future Scheduled 2020-08-10 COVID-19 Vaccine (1) [facility] Test 11:57:36 [code = COVID-19 of Medicine Vaccine (1)] Future Scheduled 2020-08-10 TETANUS SHOT (ADULT) [facility] Test 11:57:36 [code = TETANUS SHOT of Medi cine (ADULT)] Future Scheduled 2020-08-10 Diabetic foot [facility] Test 11:57:36 examination of Medicine (regime/therapy) [code = 667674677] Future Scheduled 2020-08-10 ANNUAL DIABETIC [facility] Test 11:57:36 RETINOPATHY SCREENING of Med icine [code = ANNUAL DIABETIC RETINOPATHY SCREENING] Future Scheduled 2020-08-10 Hepatitis C screening [facility] Test 11:57:36 (procedure) [code = of Medic ine 375710792] Future Scheduled 2020-08-10 Human immunodeficiency [facility] Test 11:57:36 virus screening of Medicine (procedure) [code = 071336634] Future Scheduled 2020-08-10 ZOSTER VACCINE (1 of 2) [facility] Test 11:57:36 [code = ZOSTER VACCINE of Me dicine (1 of 2)] Future Scheduled 2020-08-10 MEDICARE AWV (Initial) [facility] Test 11:57:36 [code = MEDICARE AWV of Medi cine (Initial)] Future Scheduled 2020-08-10 FLU VACCINE > 6 MONTHS [facility] Test 11:57:36 [code = FLU VACCINE > 6 of M edicine MONTHS] Future Scheduled 2020-08-10 BMI FOLLOW UP PLAN [facility] [place] Test 11:57:36 [code = BMI FOLLOW UP of Med icine PLAN] Future Scheduled 2020-07-30 BMI FOLLOW UP PLAN [facility] [place] Test 15:31:06 [code = BMI FOLLOW UP of Med icine PLAN] Future Scheduled 2020-07-30 Screening for malignant [facility] Test 08:53:16 neoplasm of colon of Medicin e (procedure) [code = 492027731] Future Scheduled 2020-07-30 COVID-19 Vaccine (1) [facility] Test 08:53:16 [code = COVID-19 of Medicine Vaccine (1)] Future Scheduled 2020-07-30 TETANUS SHOT (ADULT) [facility] Test 08:53:16 [code = TETANUS SHOT of Medi cine (ADULT)] Future Scheduled 2020-07-30 Diabetic foot [facility] Test 08:53:16 examination of Medicine (regime/therapy) [code = 136161590] Future Scheduled 2020-07-30 ANNUAL DIABETIC [facility] Test 08:53:16 RETINOPATHY SCREENING of Med icine [code = ANNUAL DIABETIC RETINOPATHY SCREENING] Future Scheduled 2020-07-30 Hepatitis C screening [facility] Test 08:53:16 (procedure) [code = of Medic ine 645238185] Future Scheduled 2020-07-30 Human immunodeficiency [facility] Test 08:53:16 virus screening of Medicine (procedure) [code = 873701513] Future Scheduled 2020-07-30 ZOSTER VACCINE (1 of 2) [facility] Test 08:53:16 [code = [place]ER VACCINE [facility] [place] [facility] (1 of 2)] Future Scheduled 2020-07-30 MEDICARE AWV (Initial) [facility] Test 08:53:16 [code = MEDICARE AWV of Medi cine (Initial)] Future Scheduled 2020-07-30 FLU VACCINE > 6 MONTHS [facility] Test 08:53:16 [code = FLU VACCINE > 6 of M edicine MONTHS] Future Scheduled FLU VACCINE > 6 MONTHS [facility] Test [code = FLU VACCINE > 6 of M edicine MONTHS] Future Scheduled COLON CANCER SCREENING: [facility] Test COLONOSCOPY [code = of Medic ine COLON CANCER SCREENING: COLONOSCOPY] Future Scheduled TETANUS SHOT (ADULT) [employer] Test [code = TETANUS SHOT of Medi cine (ADULT)] Future Scheduled Diabetic foot [facility] Test examination of Medicine (regime/therapy) [code = [id number]] Future Scheduled ANNUAL DIABETIC [employer] [facility] RETINOPATHY SCREENING of Med icine [code = ANNUAL DIABETIC RETINOPATHY SCREENING] Future Scheduled BMI FOLLOW UP PLAN [employer] Test [code = BMI FOLLOW UP of Med icine PLAN] Future Scheduled HEPATITIS C SCREENING [employer] Test [code = HEPATITIS C of Medic ine SCREENING] Future Scheduled HIV SCREENING [code = [employer] HIV SCREENING] of Medicine Future Scheduled FLU VACCINE > 6 MONTHS [employer] Test [code = FLU VACCINE > 6 of M edicine MONTHS] Future Scheduled MA DEBRIDEMENT OPEN Ordered: [employer] Test WOUND 20 SQ CM< [code = 07/24/2019 of [facility] [address]] Future Scheduled COLON CANCER SCREENING: [facility] [employer] Test COLONOSCOPY [code = of Medic ine COLON CANCER SCREENING: COLONOSCOPY] Future Scheduled TETANUS SHOT (ADULT) [employer] Test [code = TETANUS SHOT of Medi cine (ADULT)] Future Scheduled Diabetic foot [employer] Test examination of Medicine (regime/therapy) [code = [id number]] Future Scheduled ANNUAL DIABETIC [employer] [facility] RETINOPATHY SCREENING of Med icine [code = ANNUAL DIABETIC RETINOPATHY SCREENING] Future Scheduled HEPATITIS C SCREENING [employer] Test [code = HEPATITIS C of Medic ine SCREENING] Future Scheduled HIV SCREENING [code = [employer] HIV SCREENING] of Medicine Future Scheduled MEDICARE AWV (Initial) [employer] Test [code = MEDICARE AWV of Medi cine (Initial)] Future Scheduled FLU VACCINE > 6 MONTHS [employer] Test [code = FLU VACCINE > 6 of M edicine MONTHS] Future Scheduled BMI FOLLOW UP PLAN [employer] Test [code = BMI FOLLOW UP of Med icine PLAN] Future Scheduled MA DEBRIDEMENT OPEN Ordered: [employer] Test WOUND 20 SQ CM< [code = 08/07/2019 of [facility] [address]] Future Scheduled COLON CANCER SCREENING: [facility] [employer] Test COLONOSCOPY [code = of Medic ine COLON CANCER SCREENING: COLONOSCOPY] Future Scheduled TETANUS SHOT (ADULT) [employer] Test [code = TETANUS SHOT of Medi cine (ADULT)] Future Scheduled Diabetic foot [employer] Test examination of Medicine (regime/therapy) [code = [id number]] Future Scheduled ANNUAL DIABETIC [employer] [facility] RETINOPATHY SCREENING of Med icine [code = ANNUAL DIABETIC RETINOPATHY SCREENING] Future Scheduled HEPATITIS C SCREENING [employer] Test [code = HEPATITIS C of Medic ine SCREENING] Future Scheduled HIV SCREENING [code = [employer] HIV SCREENING] of Medicine Future Scheduled MEDICARE AWV (Initial) [employer] Test [code = MEDICARE AWV of Medi cine (Initial)] Future Scheduled FLU VACCINE > 6 MONTHS [employer] Test [code = FLU VACCINE > 6 of M edicine MONTHS] Future Scheduled BMI FOLLOW UP PLAN [employer] Test [code = BMI FOLLOW UP of Med icine PLAN] Future Scheduled MA DEBRIDEMENT OPEN Ordered: [employer] Test WOUND 20 SQ CM< [code = 08/22/2019 of [facility] 44278] Future Scheduled MA POST-OP FOLLOW-UP Ordered: [employer] Test VISIT [code = 26321] 08/22/2019 of Medi cine Future Scheduled SUTURE REMOVAL KIT Ordered: [employer] Test [code = NOCPT] 09/01/2019 of Medicine Future Scheduled COLON CANCER SCREENING: [employer] Test COLONOSCOPY [code = of Medic ine COLON CANCER SCREENING: COLONOSCOPY] Future Scheduled TETANUS SHOT (ADULT) [employer] Test [code = TETANUS SHOT of Medi cine (ADULT)] Future Scheduled Diabetic foot [employer] Test examination of Medicine (regime/therapy) [code = [id number]] Future Scheduled ANNUAL DIABETIC [employer] [facility] RETINOPATHY SCREENING of Med icine [code = ANNUAL DIABETIC RETINOPATHY SCREENING] Future Scheduled HEPATITIS C SCREENING [employer] Test [code = HEPATITIS C of Medic ine SCREENING] Future Scheduled HIV SCREENING [code = [employer] [facility] HIV SCREENING] of Medicine Future Scheduled MEDICARE AWV (Initial) [employer] Test [code = MEDICARE AWV of Medi cine (Initial)] Future Scheduled FLU VACCINE > 6 MONTHS [employer] Test [code = FLU VACCINE > 6 of M edicine MONTHS] Future Scheduled BMI FOLLOW UP PLAN [employer] Test [code = BMI FOLLOW UP of Med icine PLAN] Future Scheduled COLON CANCER SCREENING: [facility] [employer] Test COLONOSCOPY [code = of Medic ine COLON CANCER SCREENING: COLONOSCOPY] Future Scheduled TETANUS SHOT (ADULT) [employer] Test [code = TETANUS SHOT of Medi cine (ADULT)] Future Scheduled Diabetic foot [employer] Test examination of Medicine (regime/therapy) [code = [id number]] Future Scheduled ANNUAL DIABETIC [facility] Test RETINOPATHY SCREENING of Med icine [code = ANNUAL DIABETIC RETINOPATHY SCREENING] Future Scheduled HEPATITIS C SCREENING [employer] Test [code = HEPATITIS C of Medic ine SCREENING] Future Scheduled HIV SCREENING [code = [employer] [facility] HIV SCREENING] of Medicine Future Scheduled MEDICARE AWV (Initial) [employer] Test [code = MEDICARE AWV of Medi cine (Initial)] Future Scheduled FLU VACCINE > 6 MONTHS [employer] Test [code = FLU VACCINE > 6 of M edicine MONTHS] Future Scheduled BMI FOLLOW UP PLAN [employer] Test [code = BMI FOLLOW UP of Med icine PLAN] Future Scheduled COLON CANCER SCREENING: [employer] Test COLONOSCOPY [code = of Medic ine COLON CANCER SCREENING: COLONOSCOPY] Future Scheduled TETANUS SHOT (ADULT) [employer] Test [code = TETANUS SHOT of Medi cine (ADULT)] Future Scheduled Diabetic foot [facility] Test examination of Medicine (regime/therapy) [code = [id number]] Future Scheduled ANNUAL DIABETIC [employer] [facility] RETINOPATHY SCREENING of Med icine [code = ANNUAL DIABETIC RETINOPATHY SCREENING] Future Scheduled HEPATITIS C SCREENING [employer] Test [code = HEPATITIS C of Medic ine SCREENING] Future Scheduled HIV SCREENING [code = [employer] [facility] HIV SCREENING] of Medicine Future Scheduled MEDICARE AWV (Initial) [employer] Test [code = MEDICARE AWV of Medi cine (Initial)] Future Scheduled FLU VACCINE > 6 MONTHS [employer] Test [code = FLU VACCINE > 6 of M edicine MONTHS] Future Scheduled BMI FOLLOW UP PLAN [employer] Test [code = BMI FOLLOW UP of Med icine PLAN] Future Scheduled MA DEBRIDEMENT, SKIN, Ordered: [employer] Test SUB-Q TISSUE,=<20 SQ CM 10/04/2019 of M edicine [code = 83870] Future Scheduled COLON CANCER SCREENING: [facility] [employer] Test COLONOSCOPY [code = of Medic ine COLON CANCER SCREENING: COLONOSCOPY] Future Scheduled TETANUS SHOT (ADULT) [employer] Test [code = TETANUS SHOT of Medi cine (ADULT)] Future Scheduled Diabetic foot [employer] Test examination of Medicine (regime/therapy) [code = [id number]] Future Scheduled ANNUAL DIABETIC [facility] Test RETINOPATHY SCREENING of Med icine [code = ANNUAL DIABETIC RETINOPATHY SCREENING] Future Scheduled HEPATITIS C SCREENING [employer] Test [code = HEPATITIS C of Medic ine SCREENING] Future Scheduled HIV SCREENING [code = [employer] HIV SCREENING] of Medicine Future Scheduled MEDICARE AWV (Initial) [employer] Test [code = MEDICARE AWV of Medi cine (Initial)] Future Scheduled FLU VACCINE > 6 MONTHS [employer] Test [code = FLU VACCINE > 6 of M edicine MONTHS] Future Scheduled BMI FOLLOW UP PLAN [employer] Test [code = BMI FOLLOW UP of Med icine PLAN] Future Scheduled MA POST-OP FOLLOW-UP Ordered: [employer] Test VISIT [code = 37799] 12/06/2019 of Medi cine Future Scheduled COLON CANCER SCREENING: [facility] [employer] Test COLONOSCOPY [code = of Medic ine COLON CANCER SCREENING: COLONOSCOPY] Future Scheduled TETANUS SHOT (ADULT) [employer] Test [code = TETANUS SHOT of Medi cine (ADULT)] Future Scheduled Diabetic foot [facility] Test examination of Medicine (regime/therapy) [code = [id number]] Future Scheduled ANNUAL DIABETIC [facility] C [facility] Test RETINOPATHY SCREENING of Med icine [code = ANNUAL DIABETIC RETINOPATHY SCREENING] Future Scheduled HEPATITIS C SCREENING [employer] Test [code = HEPATITIS C of Medic ine SCREENING] Future Scheduled HIV SCREENING [code = [employer] [facility] HIV SCREENING] of Medicine Future Scheduled ZOSTER VACCINE (1 of 2) [employer] [facility] [code = [facility]ER VACCINE of [place] [facility] (1 of 2)] Future Scheduled MEDICARE AWV (Initial) [employer] Test [code = MEDICARE AWV of Medi cine (Initial)] Future Scheduled FLU VACCINE > 6 MONTHS [employer] Test [code = FLU VACCINE > 6 of M edicine MONTHS] Future Scheduled BMI FOLLOW UP PLAN [employer] Test [code = BMI FOLLOW UP of Med icine PLAN] Future Scheduled COLON CANCER SCREENING: [employer] Test COLONOSCOPY [code = of Medic ine COLON CANCER SCREENING: COLONOSCOPY] Future Scheduled TETANUS SHOT (ADULT) [employer] Test [code = TETANUS SHOT of Medi cine (ADULT)] Future Scheduled Diabetic foot [facility] Test examination of Medicine (regime/therapy) [code = [id number]] Future Scheduled ANNUAL DIABETIC [facility] Test RETINOPATHY SCREENING of Med icine [code = ANNUAL DIABETIC RETINOPATHY SCREENING] Future Scheduled HEPATITIS C SCREENING [employer] Test [code = HEPATITIS C of Medic ine SCREENING] Future Scheduled HIV SCREENING [code = [employer] HIV SCREENING] of Medicine Future Scheduled ZOSTER VACCINE (1 of 2) [facility] Test [code = ZOSTER VACCINE of Me dicine (1 of 2)] Future Scheduled MEDICARE AWV (Initial) [employer] Test [code = MEDICARE AWV of Medi cine (Initial)] Future Scheduled FLU VACCINE > 6 MONTHS [employer] Test [code = FLU VACCINE > 6 of M edicine MONTHS] Future Scheduled BMI FOLLOW UP PLAN [employer] Test [code = BMI FOLLOW UP of Med icine PLAN] Future Scheduled COLON CANCER SCREENING: [facility] [employer] Test COLONOSCOPY [code = of Medic ine COLON CANCER SCREENING: COLONOSCOPY] Future Scheduled TETANUS SHOT (ADULT) [employer] Test [code = TETANUS SHOT of Medi cine (ADULT)] Future Scheduled Diabetic foot [facility] Test examination of Medicine (regime/therapy) [code = [id number]] Future Scheduled ANNUAL DIABETIC [employer] [facility] RETINOPATHY SCREENING of Med icine [code = ANNUAL DIABETIC RETINOPATHY SCREENING] Future Scheduled HEPATITIS C SCREENING [employer] Test [code = HEPATITIS C of Medic ine SCREENING] Future Scheduled HIV SCREENING [code = [employer] [facility] HIV SCREENING] of Medicine Future Scheduled ZOSTER VACCINE (1 of 2) [employer] Test [code = ZOSTER VACCINE of Me dicine (1 of 2)] Future Scheduled MEDICARE AWV (Initial) [employer] Test [code = MEDICARE AWV of Medi cine (Initial)] Future Scheduled FLU VACCINE > 6 MONTHS [employer] Test [code = FLU VACCINE > 6 of M edicine MONTHS] Future Scheduled BMI FOLLOW UP PLAN [employer] Test [code = BMI FOLLOW UP of Med icine PLAN] Future Scheduled COLON CANCER SCREENING: [facility] [employer] Test COLONOSCOPY [code = of Medic ine COLON CANCER SCREENING: COLONOSCOPY] Future Scheduled COVID-19 Vaccine [facility] [employer] Test Evaluation [code = of Medici ne COVID-19 Vaccine Evaluation] Future Scheduled TETANUS SHOT (ADULT) [employer] Test [code = TETANUS SHOT of Medi cine (ADULT)] Future Scheduled Diabetic foot [employer] Test examination of Medicine (regime/therapy) [code = 763095134] Future Scheduled ANNUAL DIABETIC [employer] [facility] RETINOPATHY SCREENING of Med icine [code = ANNUAL DIABETIC RETINOPATHY SCREENING] Future Scheduled HEPATITIS C SCREENING [employer] Test [code = HEPATITIS C of Medic ine SCREENING] Future Scheduled HIV SCREENING [code = [employer] HIV SCREENING] of Medicine Future Scheduled ZOSTER VACCINE (1 of 2) [facility] [employer] Test [code = ZOSTER VACCINE of Me dicine (1 of 2)] Future Scheduled MEDICARE AWV (Initial) [employer] Test [code = MEDICARE AWV of Medi cine (Initial)] Future Scheduled FLU VACCINE > 6 MONTHS [employer] Test [code = FLU VACCINE > 6 of M edicine MONTHS] Future Scheduled BMI FOLLOW UP PLAN [employer] Test [code = BMI FOLLOW UP of Med icine PLAN] Future Scheduled COLON CANCER SCREENING: [employer] Test COLONOSCOPY [code = of Medic ine COLON CANCER SCREENING: COLONOSCOPY] Future Scheduled COVID-19 Vaccine [employer] [facility] Evaluation [code = of Medici ne COVID-19 Vaccine Evaluation] Future Scheduled TETANUS SHOT (ADULT) [employer] Test [code = TETANUS SHOT of Medi cine (ADULT)] Future Scheduled Diabetic foot [facility] Test examination of Medicine (regime/therapy) [code = 526331244] Future Scheduled ANNUAL DIABETIC [employer] [facility] RETINOPATHY SCREENING of Med icine [code = ANNUAL DIABETIC RETINOPATHY SCREENING] Future Scheduled HEPATITIS C SCREENING [employer] Test [code = HEPATITIS C of Medic ine SCREENING] Future Scheduled HIV SCREENING [code = [employer] HIV SCREENING] of Medicine Future Scheduled ZOSTER VACCINE (1 of 2) [employer] Test [code = ZOSTER VACCINE of Me dicine (1 of 2)] Future Scheduled MEDICARE AWV (Initial) [employer] Test [code = MEDICARE AWV of Medi cine (Initial)] Future Scheduled FLU VACCINE > 6 MONTHS [employer] Test [code = FLU VACCINE > 6 of M edicine MONTHS] Future Scheduled BMI FOLLOW UP PLAN [employer] Test [code = BMI FOLLOW UP of Med icine PLAN] Future Scheduled COLON CANCER SCREENING: [facility] [employer] Test COLONOSCOPY [code = of Medic ine COLON CANCER SCREENING: COLONOSCOPY] Future Scheduled COVID-19 Vaccine [employer] [facility] Evaluation [code = of Medici ne COVID-19 Vaccine Evaluation] Future Scheduled TETANUS SHOT (ADULT) [employer] Test [code = TETANUS SHOT of Medi cine (ADULT)] Future Scheduled Diabetic foot [facility] Test examination of Medicine (regime/therapy) [code = 443425481] Future Scheduled ANNUAL DIABETIC [employer] [facility] RETINOPATHY SCREENING of Med icine [code = ANNUAL DIABETIC RETINOPATHY SCREENING] Future Scheduled HEPATITIS C SCREENING [employer] Test [code = HEPATITIS C of Medic ine SCREENING] Future Scheduled HIV SCREENING [code = [employer] HIV SCREENING] of Medicine Future Scheduled ZOSTER VACCINE (1 of 2) [employer] Test [code = ZOSTER VACCINE of Me dicine (1 of 2)] Future Scheduled MEDICARE AWV (Initial) [employer] Test [code = MEDICARE AWV of Medi cine (Initial)] Future Scheduled FLU VACCINE > 6 MONTHS [employer] Test [code = FLU VACCINE > 6 of M edicine MONTHS] Future Scheduled BMI FOLLOW UP PLAN [employer] Test [code = BMI FOLLOW UP of Med icine PLAN] Future Scheduled MA DEBRIDEMENT, SKIN, Ordered: [employer] Test SUB-Q TISSUE,=<20 SQ CM 05/25/2020 of [facility] edicine [code = 71865] Future Scheduled Screening for malignant [facility] [employer] Test neoplasm of colon of Medicin e (procedure) [code = 940036998] Future Scheduled TETANUS SHOT (ADULT) [employer] Test [code = TETANUS SHOT of Medi cine (ADULT)] Future Scheduled COVID-19 Vaccine (1) [employer] Test [code = COVID-19 of Medicine Vaccine (1)] Future Scheduled Diabetic foot [facility] Test examination of Medicine (regime/therapy) [code = 823538119] Future Scheduled ANNUAL DIABETIC [facility] Test RETINOPATHY SCREENING of Med icine [code = ANNUAL DIABETIC RETINOPATHY SCREENING] Future Scheduled Hepatitis C screening [employer] Test (procedure) [code = of Medic ine 493204095] Future Scheduled Human immunodeficiency [employer] virus screening of Medicine (procedure) [code = 579566998] Future Scheduled ZOSTER VACCINE (1 of 2) [employer] Test [code = ZOSTER VACCINE of Me dicine (1 of 2)] Future Scheduled MEDICARE AWV (Initial) [employer] Test [code = MEDICARE AWV of Medi cine (Initial)] Future Scheduled FLU VACCINE > 6 MONTHS [employer] Test [code = FLU VACCINE > 6 of M edicine MONTHS] Future Scheduled BMI FOLLOW UP PLAN [employer] Test [code = BMI FOLLOW UP of Med icine PLAN] Future Scheduled Screening for malignant [facility] [employer] Test neoplasm of colon of Medicin e (procedure) [code = 250530752] Future Scheduled TETANUS SHOT (ADULT) [employer] Test [code = TETANUS SHOT of Medi cine (ADULT)] Future Scheduled COVID-19 Vaccine (1) [employer] Test [code = COVID-19 of Medicine Vaccine (1)] Future Scheduled Diabetic foot [facility] Test examination of Medicine (regime/therapy) [code = 705657563] Future Scheduled ANNUAL DIABETIC [employer] [facility] RETINOPATHY SCREENING of Med icine [code = ANNUAL DIABETIC RETINOPATHY SCREENING] Future Scheduled Hepatitis C screening [employer] Test (procedure) [code = of Medic ine 803086613] Future Scheduled Human immunodeficiency [employer] Test virus screening of Medicine (procedure) [code = 552237604] Future Scheduled ZOSTER VACCINE (1 of 2) [employer] Test [code = ZOSTER VACCINE of Me dicine (1 of 2)] Future Scheduled MEDICARE AWV (Initial) [employer] Test [code = MEDICARE AWV of Medi cine (Initial)] Future Scheduled FLU VACCINE > 6 MONTHS [employer] Test [code = FLU VACCINE > 6 of M edicine MONTHS] Future Scheduled BMI FOLLOW UP PLAN [employer] Test [code = BMI FOLLOW UP of Med icine PLAN] Future Scheduled Screening for malignant [employer] Test neoplasm of colon of Medicin e (procedure) [code = 072911617] Future Scheduled TETANUS SHOT (ADULT) [employer] Test [code = TETANUS SHOT of Medi cine (ADULT)] Future Scheduled COVID-19 Vaccine (1) [employer] Test [code = COVID-19 of Medicine Vaccine (1)] Future Scheduled Diabetic foot [employer] Test examination of Medicine (regime/therapy) [code = 200216042] Future Scheduled ANNUAL DIABETIC [employer] [facility] RETINOPATHY SCREENING of Med icine [code = ANNUAL DIABETIC RETINOPATHY SCREENING] Future Scheduled Hepatitis C screening [employer] Test (procedure) [code = of Medic ine 597086371] Future Scheduled Human immunodeficiency [employer] virus screening of Medicine (procedure) [code = 342867953] Future Scheduled ZOSTER VACCINE (1 of 2) [facility] Test [code = ZOSTER VACCINE of Me dicine (1 of 2)] Future Scheduled MEDICARE AWV (Initial) [employer] Test [code = MEDICARE AWV of Medi cine (Initial)] Future Scheduled BMI FOLLOW UP PLAN [employer] Test [code = BMI FOLLOW UP of Med icine PLAN] Future Scheduled FLU VACCINE > 6 MONTHS [employer] Test [code = FLU VACCINE > 6 of M edicine MONTHS] Future Scheduled COLON CANCER SCREENING: [facility] [employer] Test COLONOSCOPY [code = of Medic ine COLON CANCER SCREENING: COLONOSCOPY] Future Scheduled TETANUS SHOT (ADULT) [employer] Test [code = TETANUS SHOT of Medi cine (ADULT)] Future Scheduled Diabetic foot [facility] Test examination of Medicine (regime/therapy) [code = 790890559] Future Scheduled ANNUAL DIABETIC [facility] Test RETINOPATHY SCREENING of Med icine [code = ANNUAL DIABETIC RETINOPATHY SCREENING] Future Scheduled BMI FOLLOW UP PLAN [facility] Test [code = BMI FOLLOW UP of Med icine PLAN] Future Scheduled HEPATITIS C SCREENING [employer] Test [code = HEPATITIS C of Medic ine SCREENING] Future Scheduled HIV SCREENING [code = [employer] HIV SCREENING] of Medicine Encounters Start End Encounter Admission Attending Care Care Encounter Source Date/Time Date/Time Type Type Clinicians Facility Department ID 2020-12-13 Outpatient PEDRO LUIS [facility] Surgery [id number] [facility] 08:44:41 STAR 2020-12-12 Inpatient PEDRO LUIS [facility] Surgery [id number] [facility] 22:13:11 STAR 2020-12-10 Outpatient PEDRO LUIS [facility] Surgery [id number] [facility] 02:17:18 STAR 2020-12-09 Outpatient PEDRO LUIS [facility] Surgery [id number] SLE 22:29:35 STAR 2020-04-16 Outpatient READMISSIO [facility] [id number] EN[facility] 10:19:52 N 2019-12-05 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 [id number] SLE 08:29:14 [id number] 2020-12-23 2020-12-23 Office RYAN Cloud [id number] [facility] 15:16:17 16:42:07 Visit Star Bean AMBULATOR 350.1.13.21 College Y 0.2.7.2.686 of [id number] Medi [facility]yson 825 e 2020-11-25 2020-11-25 Office RYAN [facility] 1.2.840.114 [id number] [facility] 14:15:01 16:08:45 Visit Star A AMBULATOR 350.1.13.21 College Y 0.2.7.2.686 of [id number] [facility] greyson 825 e 2020-10-28 2020-10-29 Office RYAN [employer] 1.2.840.114 [id number] [facility] 16:05:09 16:10:43 Visit Star A AMBULATOR 350.1.13.21 College Y 0.2.7.2.686 of [id number] [facility] greyson 825 e 2020-10-14 2020-10-15 Office RYAN [employer] 1.2.840.114 [id number] [facility] 15:36:26 15:08:28 Visit Star A AMBULATOR 350.1.13.21 College Y 0.2.7.2.686 of [id number] [facility] greyson 825 e 2020-10-14 2020-10-14 Outpatient RYAN CASTAÑEDA [facility] [id number] [facility] 14:06:22 16:51:07 CLARK Amira doherty of Medicin e 2020-09-16 2020-09-16 Outpatient [facility] [id number] [facility] 20:09:00 23:59:00 Amira doherty of Medicin e 2020-09-16 2020-09-16 Emergency ER [facility] Emergency [id number] SLE 18:17:00 18:17:00 2020-08-19 2020-08-19 Office RYAN [employer] 1.2.840.114 [id number] [facility] 14:57:45 16:54:41 Visit Star A AMBULATOR 350.1.13.21 College Y 0.2.7.2.686 of [id number] [facility] greyson 825 e 2020-08-05 2020-08-05 Office RYAN [employer] 1.2.840.114 [id number] [facility] 13:00:06 14:46:27 Visit Star A AMBULATOR 350.1.13.21 College Y 0.2.7.2.686 of [id number] [facility] greyosn 825 e 2020-07-22 2020-07-22 Office RYAN [employer] 1.2.840.114 [id number] [facility] 13:04:56 14:30:33 Visit Star A AMBULATOR 350.1.13.21 College Y 0.2.7.2.686 of [id number] [facility] 825 e 2020-07-03 2020-07-03 Outpatient [facility] [id number] 2020-06-26 2020-06-26 Outpatient [facility] [id number] [facility] 2020-06-24 2020-06-24 Office RYAN [facility] 1.2.840.114 [id number] [facility] 15:12:49 15:42:49 Visit Star A AMBULATOR 350.1.13.21 College Y 0.2.7.2.686 of [id number] [facility] 825 e 2020-05-27 2020-05-27 Outpatient EL [facility] [id number] [facility] 00:00:00 00:00:00 2020-05-27 2020-05-27 Outpatient [facility] [id number] [facility] 00:00:00 00:00:00 2020-05-27 2020-05-27 Outpatient [facility] [id number] [facility] 00:00:00 00:00:00 2020-05-26 2020-05-26 Outpatient [facility] [id number] [facility] 00:00:00 00:00:00 2020-05-20 2020-05-22 Office [facility]AN [facility] 1.2.840.114 [id number] 15:57:14 16:30:11 Visit Star A AMBULATOR 350.1.13.21 Y 0.2.7.2.686 [id number] [facility] 2020-05-20 2020-05-22 Office [facility]AN [employer] 1.2.840.114 [id number] [facility] 15:57:14 16:30:11 Visit Star A AMBULATOR 350.1.13.21 College Y 0.2.7.2.686 of [id number] [facility] 825 e 2020-05-13 2020-05-13 Office RYAN Cloud 1.2.840.114 [id number] 16:12:46 17:00:07 Visit Star A AMBULATOR 350.1.13.21 Y 0.2.7.2.686 [id number] [facility] 2020-05-13 2020-05-13 Office RYAN Cloud 1.2.840.[id number] [place] [address] 16:12:46 17:00:07 Visit Star A AMBULATOR 350.1.13.21 College Y 0.2.7.2.686 of [id number] [facility] 825 e 2020-04-29 2020-04-29 Office RYAN Cloud 1.2.840.114 [id number] 15:18:12 16:41:00 Visit Star A AMBULATOR 350.1.13.21 Y 0.2.7.2.686 [id number] [facility] 2020-04-29 2020-04-29 Office RYAN Cloud 1.2.840.[id number] [place] [address] 15:18:12 16:41:00 Visit Star A AMBULATOR 350.1.13.21 College Y 0.2.7.2.686 of [id number] [address] 2020-04-16 2020-04-16 Outpatient [place] HCAPM LABO [id number] -20 [facility] 17:21:00 17:21:00 Oral [id number] [facility] 2020-04-16 2020-04-16 Outpatient [place] HCAPM LABO [id number] -20 [facility] 17:21:00 17:21:00 Oral [id number] [facility] 2020-04-11 2020-04-11 Emergency [facility], [facility] [id number] [place] [address] 00:00:00 00:00:00 HAKEEM [address] 2020-04-08 2020-04-08 Office RYAN Cloud 1.2.840.114 [id number] 15:02:21 16:42:00 Visit Star A AMBULATOR 350.1.13.21 Y 0.2.7.2.686 [id number] [facility] 2020-04-08 2020-04-08 Office RYAN Cloud 1.2.840.114 [id number] 51 [facility] 15:02:21 16:42:00 Visit Star A AMBULATOR 350.1.13.21 College Y 0.2.7.2.686 of [id number] [facility] 825 2020-04-07 2020-04-07 Outpatient ANGELINA Sánchez LABO [id number] -20 [facility] 16:16:00 16:16:00 John [id number] [facility] 2020-03-11 2020-03-11 Outpatient UR RANDY, [facility] 914 [id number] [facility] 18:57:00 18:57:00 JORGITO 2020-03-11 2020-03-11 Office RYAN Cloud 1.2.840.114 [id number] 14:49:58 16:51:58 Visit Star A AMBULATOR 350.1.13.21 Y 0.2.7.2.686 [id number] [facility] 2020-03-11 2020-03-11 Office RYAN Cloud 1.2.840.114 [id number] 22 [facility] 14:49:58 16:51:58 Visit Star A AMBULATOR 350.1.13.21 College Y 0.2.7.2.686 of [id number] [facility] 825 e 2020-02-27 2020-02-27 Outpatient KNOW, [facility] O[facility] [id number] -20 [facility] 19:43:00 19:43:00 DOES_NOT [id number] [facility] 2020-02-26 2020-02-26 Outpatient KNOW, [facility] [id number] -20 [facility] 08:45:00 08:45:00 DOES_NOT [id number] [facility] 2020-02-22 2020-02-22 Outpatient KNOW, HCABM OPLA [id number] -20 [facility] 20:50:00 20:50:00 DOES_NOT [id number] [facility] 2020-02-21 2020-02-21 Outpatient KNOW, [facility] [id number] -20 [facility] 20:31:00 20:31:00 DOES_NOT [id number] [facility] 2020-01-06 2020-01-06 Emergency ER SLE Emergency [id number] [facility] 16:00:00 16:00:00 2020-01-01 2020-01-01 Office RYAN Cloud 1.2.840.114 [id number] 16:15:05 16:45:39 Visit Star Bean AMBULATOR 350.1.13.21 Y 0.2.7.2.686 [id number] [facility] 2020-01-01 2020-01-01 Office RYAN Cloud 1.2.840.[id number] [place] [address] 16:15:05 16:45:39 Visit Star A AMBULATOR 350.1.13.21 College Y 0.2.7.2.686 of [id number] [facility] 825 e 2020-01-01 2020-01-01 Office RYAN Castañeda 1.2.840.114 [id number] 15:18:00 16:17:05 Visit Clark Wilson AMBULATOR 350.1.13.21 Y 0.2.7.2.686 [id number] [facility] 2020-01-01 2020-01-01 Office RYAN Castañeda 1.2.840.[id number] [place] [address] 15:18:00 16:17:05 Visit Clark Wilson AMBULATOR 350.1.13.21 College Y 0.2.7.2.686 of [id number] [facility] 825 e 2019-12-05 2019-12-05 Office RYAN Cloud 1.2.840.114 [id number] 13:43:23 16:06:29 Visit Star Bean AMBULATOR 350.1.13.21 Y 0.2.7.2.686 [id number] [facility] 2019-12-05 2019-12-05 Office RYAN Cloud 1.2.840.[id number] [place] [address] 13:43:23 16:06:29 Visit Star A AMBULATOR 350.1.13.21 College Y 0.2.7.2.686 of [id number] [facility] 825 e 2019-10-16 2019-10-16 Outpatient SLE SLE [id number] SLE 00:00:00 00:00:00 2019-10-12 2019-10-12 Outpatient SLE SLE [id number] [facility] 00:00:00 00:00:00 2019-10-02 2019-10-02 Office Pedro Luis, BCLaisha 1.2.840.114 [id number] 14:21:54 16:08:48 Visit Star A AMBULATOR 350.1.13.21 Y 0.2.7.2.686 [id number] 825 2019-10-02 2019-10-02 Office Pedro Luis, BCLaisha 1.2.840.[id number] [place] [address] 14:21:54 16:08:48 Visit Star A AMBULATOR 350.1.13.21 College Y 0.2.7.2.686 of [id number] [facility] 825 e 2019-09-12 2019-09-12 Outpatient [facility] [id number] [facility] 00:00:00 00:00:00 2019-09-10 2019-09-[address] [facility] [id number] [facility] 00:00:00 00:00:00 2019-09-04 2019-09-04 Office Pedro Luis, BCLaisha 1.2.840.114 [id number] 14:17:20 16:48:51 Visit Star A AMBULATOR 350.1.13.21 Y 0.2.7.2.686 [id number] [facility] 2019-09-04 2019-09-04 Office Pedro Luis, BCLaisha 1.2.840.[id number] [place] [address] 14:17:20 16:48:51 Visit Star A AMBULATOR 350.1.13.21 College Y 0.2.7.2.686 of [id number] [facility] 825 e 2019-09-04 2019-09-04 Office Shashi, BCLaisha 1.2.840.114 [id number] 14:17:07 16:48:39 Visit Clark L AMBULATOR 350.1.13.21 Y 0.2.7.2.686 [id number] 2019-09-04 2019-09-04 Office Shashi, BCLaisha 1.2.840.114 [id number] 34 [facility] 14:17:07 16:48:39 Visit Clark L AMBULATOR 350.1.13.21 College Y 0.2.7.2.686 of [id number] [facility] 825 e 2019-08-21 2019-08-21 Office RYAN Cloud 1.2.840.114 [id number] 16:46:14 16:46:14 Visit Star A AMBULATOR 350.1.13.21 Y 0.2.7.2.686 [id number] 82 2019-08-21 2019-08-21 Office RYAN Cloud 1.2.840.[id number] [place] [address] 16:46:14 16:46:14 Visit Star A AMBULATOR 350.1.13.21 College Y 0.2.7.2.686 of [id number] [facility] 825 e 2019-08-07 2019-08-07 Office RYAN Cloud 1.2.840.114 [id number] 13:10:09 16:34:44 Visit Star A AMBULATOR 350.1.13.21 Y 0.2.7.2.686 [id number] [facility] 2019-08-07 2019-08-07 Office RYAN Cloud 1.2.840.[id number] [place] [address] 13:10:09 16:34:44 Visit Star A AMBULATOR 350.1.13.21 College Y 0.2.7.2.686 of [id number] [facility] 825 e 2019-07-24 2019-07-24 Office RYAN Cloud 1.2.840.114 [id number] 13:35:06 14:05:03 Visit Star A AMBULATOR 350.1.13.21 Y 0.2.7.2.686 [id number] [facility] 2019-07-24 2019-07-24 Office RYAN Cloud 1.2.840.114 [id number] 83 [facility] 13:35:06 14:05:03 Visit Star A AMBULATOR 350.1.13.21 College Y 0.2.7.2.686 of [id number] [facility] 825 e 2019-07-17 2019-07-17 Office RYAN Castañeda 1.2.840.114 [id number] 11:22:05 16:23:11 Visit Clark Wilson AMBULATOR 350.1.13.21 Y 0.2.7.2.686 [id number] 825 2019-07-17 2019-07-17 Office RYAN Castañeda 1.2.840.114 [id number] 31 [facility] 11:22:05 16:23:11 Visit Clark Wilson AMBULATOR 350.1.13.21 College Y 0.2.7.2.686 of [id number] [facility] 825 e 2019-07-14 2019-07-14 Outpatient RECERTIFIC NATALIO ENCCLR ENCCLR 2492 [id number] ENCCLR 00:00:00 00:00:00 YAN ORAL CHIOMA EDY 2019-07-10 2019-07-10 Office RYAN Cloud 1.2.840.114 [id number] 15:58:34 16:52:46 Visit Star Bean AMBULATOR 350.1.13.21 Y 0.2.7.2.686 [id number] [facility] 2019-07-10 2019-07-10 Office RYAN Cloud 1.2.840.[id number] [place] [address] 15:58:34 16:52:46 Visit Star Bean AMBULATOR 350.1.13.21 College Y 0.2.7.2.686 of [id number] [facility] 825 e 2019-05-10 2019-05-10 Outpatient TURKISH, [facility] [id number] [address] [place] 00:00:00 00:00:00 WIL[place] [address] 2019-05-10 2019-05-10 Outpatient [facility] [id number] [address] [place] 00:00:00 00:00:00 WILMER [address] 2019-05-09 2019-05-09 Outpatient TURKISH, [facility] [id number] [address] [place] 00:00:00 00:00:00 WILMER [address] 2019-05-08 2019-05-08 Outpatient [facility] [id number] [address] [place] 00:00:00 00:00:00 WILMER [address] 2018-09-08 2018-09-08 Outpatient ANANDA [facility] 470 [id number] [place] 00:00:00 00:00:00 , ABRAHAM [address] Results Test Description Test Time Test Comments Results Result Comments Source AFB CULTURE + SMEAR (NON-SPUTUM) 2020-11-03 12:52:00 Test Item Value Reference Range Interpretation Comme nts CULTURE (BEAKER) (test code = 1095) No acid-fast bacilli isolated i n 42 days AFB SMEAR (BEAKER) (test code = 994) No acid fast bacilli seen AFB CULTURE + SMEAR (NON-SPUTUM)2020-11-03 12:52:00 Test Item Value Reference Range Interpretation Comments CULTURE (BEAKER) (test No acid-fast bacilli code = 1095) isolated in 42 days AFB SMEAR (BEAKER) No acid fast bacilli (test code = 994) seen FUNGUS CULTURE + [id number] 01:34:00 Test Item Value Reference Range Interpretation Comments CULTURE (BEAKER) (test No fungus isolated in code = 1095) 28 days FUNGUS SMEAR (BEAKER) No fungi seen (test code = 1406) FUNGUS CULTURE + [id number] 01:24:00 Test Item Value Reference Range Interpretation Comments CULTURE (BEAKER) (test No fungus isolated in code = 1095) 28 days FUNGUS SMEAR (BEAKER) No fungi seen (test code = 1406) SURGICALLY OBTAINED CULTURE + GRAM [id number] 16:50:00 Test Item Value Reference Interpretation Comments Range CULTURE (BEAKER) PSEUDOMONAS A <1+ Pseudom onas (test code = 1095) AERUGINOSA aeruginos a Amikacin (test code R = 1) Aztreonam (test R code = 32) Cefepime (test code R = 51) Ceftazidime (test R code = 27) Ciprofloxacin (test S code = 7) Doripenem (test R code = 100) Gentamicin (test S code = 18) Imipenem (test code R = 19) Levofloxacin (test R code = 22) Meropenem (test R code = 34) Piperacillin (test R code = 24) Piperacillin + R Tazobactam (test code = 29) Tobramycin (test S code = 25) CULTURE (BEAKER) A <1+ Provide ncia (test code = 1095) rettgeriR efer to previous cultur e ofProvidencia rettgeri CULTURE (BEAKER) A 1+ Beta-hem olytic (test code = 1095) streptoco ccus group G, by serologic al grouping CULTURE (BEAKER) A 1+ Same org anism has (test code = 1095) been isol ated from cultures(s) of the same body site within 3 days. Repeat identification and susceptibility testing perform ed only after consultation wi the clinical microb iology laboratory.Refe r to previous cultur e ofEnterococcus faecalis CULTURE (BEAKER) A 1+ Same org anism has (test code = 1095) been isol ated from cultures(s) of the same body site within 3 days. Repeat identification and susceptibility testing perform ed only after consultation wi the clinical microb iology laboratory.Refe r to previous cultur e ofStaphylococcu s aureus GRAM STAIN RESULT <1+ WBCs (BEAKER) (test code = 1123) GRAM STAIN RESULT No organisms (BEAKER) (test code seen = 397908) GRAM STAIN RESULT No organisms (BEAKER) (test code seen = 812249) POCT-GLUCOSE [id number] 21:10:00 Test Item Value Reference Range Interpretation Comments POC-GLUCOSE METER 142 mg/dL 70-110 H : TESTED A T [facility] 6720 (BEAKER) (test code = [facility], 153) 86686: Dimension Warehouse Supervisor/Techni estefani ID = [id number] for CA RBAJAL, TIMA POCT-GLUCOSE [id number] 11:54:00 Test Item Value Reference Range Interpretation Comments POC-GLUCOSE METER 103 mg/dL 70-110 : TESTED A T [facility] 6720 (BEAKER) (test code = [facility], 153) 11751: [employer] Warehouse Supervisor/Techni estefani ID = [id number] for SA NTOS, JACOB POCT-GLUCOSE [id number] 08:41:00 Test Item Value Reference Range Interpretation Comments POC-GLUCOSE METER 83 mg/dL 70-110 : TESTED A T [facility] 6720 (BEAKER) (test code = [facility], 153) 22234: [employer]ension Warehouse Supervisor/Techni estefani ID = [id number] for QUANG OS, JACOB POCT-GLUCOSE [id number] 07:07:00 Test Item Value Reference Range Interpretation Comments POC-GLUCOSE METER 68 mg/dL 70-110 L : TESTED A T [facility] 6720 (BEAKER) (test code = [facility], 153) 07740: [employer] Warehouse Supervisor/Techni estefani ID = [id number] for TEJINDER KITCHEN CBC (HEMOGRAM ONLY)2020-10-03 06:23:00 Test Item Value Reference Range Interpretation Comments WHITE BLOOD CELL COUNT (BEAKER) 10.3 K/ L 3.5-10.5 (test code = 775) RED BLOOD CELL COUNT (BEAKER) 3.08 M/ L 4.63-6.08 L (test code = 761) HEMOGLOBIN (BEAKER) (test code = 8.8 GM/DL 13.7-17.5 L 410) HEMATOCRIT (BEAKER) (test code = 28.4 % 40.1-51.0 L 411) MEAN CORPUSCULAR VOLUME (BEAKER) 92.2 fL 79.0-92.2 (test code = 753) MEAN CORPUSCULAR HEMOGLOBIN 28.6 pg 25.7-32.2 (BEAKER) (test code = 751) MEAN CORPUSCULAR HEMOGLOBIN CONC 31.0 GM/DL 32.3-36.5 L (BEAKER) (test code = 752) RED CELL DISTRIBUTION WIDTH 17.1 % 11.6-14.4 H (BEAKER) (test code = 412) PLATELET COUNT (BEAKER) (test 268 K/CU MM 150-450 code = 756) MEAN PLATELET VOLUME (BEAKER) 10.1 fL 9.4-12.4 (test code = 754) NUCLEATED RED BLOOD CELLS 0 /100 WBC 0-0 (BEAKER) (test code = 413) POCT-GLUCOSE [id number] 17:51:00 Test Item Value Reference Range Interpretation Comments POC-GLUCOSE METER 141 mg/dL 70-110 H : TESTED A T [facility] 6720 (BEAKER) (test code = DASIA Garcia [facility], 1538) 39945: Dimension Warehouse Supervisor/Techni estefani ID = [id number] for Ronald Coffman TISSUE [id number] 13:40:00Surgical Pathology Report Case: [id number] Authorizing Provider: Star Cloud DPM Collected: 09/20/2020 10:59 AM Ordering Location: [address] Received: 09/22/2020 08:28 AM Service Pathologist: Saira Chávez MD Specimen: Bone, Bone Eschar Soft Tissue Right Foot ESCHAR AND SOFT TISSUE, RIGHT FOOT, EXCISION: - SKIN AND SOFT TISSUE WITH GANGRENOUS NECROSIS,, ABSECESS AND FIBRINOPURULENT EXUDATE - GMS STAIN NEGATIVE FOR FUNGAL ORGANISM Signing Pathologist Direct Phone Line: [phone] signed by Saira Chávez MD on 10/02/2020 at 1:40 PMCorrelation with culture study is recommended.11239, 84417Gardnvcw ulcer, forefoot leftBone tissue, bone eschar soft tissue right foot A. Received are multiple pieces of baca-black, flat, necrotic skin and soft tissue from 0.5 to 2 x 2 cm excised to a depth of less than 0.1 cm. Technology Lead sections are submitted in cassette A1. KM/ewThe interpretation of this case included the use of immunohistochemistry or special stains. GMS- NegativeControl Slides Examined: In-house known positive controls were evaluated along with the test tissue. These control slides run alongside of the patients sample show appropriate staining. Internal positive and negative controls when available are evaluated Immunohistochemistry technical testing was performed at [facility], Pathology Laboratory where it was developed and its performance characteristics were determined. It has not been cleared or approved by the U.S. Food and Drug Administration. The FDA has determined that such clearance or approval is not necessary. The test is used for clinical purposes. It should not be regarded as investigational or for res earch. This laboratory is certified under the Clinical Laboratory Improvement Amendments of 1988 (CLIA-88) as qualified to perform high complexity clinical laboratory testing.POCT-GLUCOSE [id number] 13:28:00 Test Item Value Reference Range Interpretation Comments POC-GLUCOSE METER 77 mg/dL 70-110 : TESTED A T [facility] 6720 ([employer]) (test code = DASIA Garcia [facility], 1538) 35406: Dimension Warehouse Supervisor/Techni estefani ID = [id number] for Aminata ie, Ronald [id number] 12:03:00 Test Item Value Reference Range Interpretation Comments ACTIVATED CLOTTING TIME 323 sec : 74 -137 seconds, ([employer]) (test code = Baseli ne: TESTED AT 441) [facility] 6720 CHRISTOS RUTHIE [facility], 770 30: Dimension Warehouse Supervisor/Techni estefani ID = [id number] for HI CHRISTOPHER, AMADA POCT-GLUCOSE [id number] 07:25:00 Test Item Value Reference Range Interpretation Comments POC-GLUCOSE METER 73 mg/dL 70-110 : TESTED A T [facility] 6720 (BEAKER) (test code = DASIA Garcia [facility], 153) 59987: Dimension Warehouse Supervisor/Techni estefani ID = [id number] for AMADA DUKES CBC (HEMOGRAM ONLY)2020-10-02 05:34:00 Test Item Value Reference Range Interpretation Comments WHITE BLOOD CELL COUNT (BEAKER) 10.0 K/ L 3.5-10.5 (test code = 775) RED BLOOD CELL COUNT (BEAKER) 2.98 M/ L 4.63-6.08 L (test code = 761) HEMOGLOBIN (BEAKER) (test code = 8.6 GM/DL 13.7-17.5 L 410) HEMATOCRIT (BEAKER) (test code = 27.6 % 40.1-51.0 L 411) MEAN CORPUSCULAR VOLUME (BEAKER) 92.6 fL 79.0-92.2 H (test code = 753) MEAN CORPUSCULAR HEMOGLOBIN 28.9 pg 25.7-32.2 (BEAKER) (test code = 751) MEAN CORPUSCULAR HEMOGLOBIN CONC 31.2 GM/DL 32.3-36.5 L (BEAKER) (test code = 752) RED CELL DISTRIBUTION WIDTH 17.2 % 11.6-14.4 H (BEAKER) (test code = 412) PLATELET COUNT (BEAKER) (test 278 K/CU MM 150-450 code = 756) MEAN PLATELET VOLUME (BEAKER) 9.8 fL 9.4-12.4 (test code = 754) NUCLEATED RED BLOOD CELLS 0 /100 WBC 0-0 (BEAKER) (test code = 413) POCT-GLUCOSE [id number] 01:02:00 Test Item Value Reference Range Interpretation Comments POC-GLUCOSE METER 91 mg/dL 70-110 : TESTED A T [facility] 6720 (BEAKER) (test code = DASIA Garcia [facility], 1538) 62090: Dimension Warehouse Supervisor/Techni estefani ID = [id number] for Kathe Tello POCT-GLUCOSE [id number] 22:29:00 Test Item Value Reference Range Interpretation Comments POC-GLUCOSE METER 101 mg/dL 70-110 : TESTED A T [facility] 6720 (BEAKER) (test code = [facility], 1538) 84637: Dimension Warehouse Supervisor/Techni estefani ID = [id number] for Co Kathe nguyen POCT-GLUCOSE [id number] 17:20:00 Test Item Value Reference Range Interpretation Comments POC-GLUCOSE METER 147 mg/dL 70-110 H : TESTED A T [facility] 6720 (BEAKER) (test code = [facility], 1538) 43777: Dimension Warehouse Supervisor/Techni estefani ID = [id number] for GUNNER PANDYA POCT-GLUCOSE [id number] 12:35:00 Test Item Value Reference Range Interpretation Comments POC-GLUCOSE METER 75 mg/dL 70-110 : TESTED A T [facility] 6720 (BEAKER) (test code = [facility], 1538) 32069: Dimension Warehouse Supervisor/Techni estefani ID = [id number] for FAGUNNER MCNALLY CBC (HEMOGRAM ONLY)2020-10-01 05:49:00 Test Item Value Reference Range Interpretation Comments WHITE BLOOD CELL COUNT (BEAKER) 9.5 K/ L 3.5-10.5 (test code = 775) RED BLOOD CELL COUNT (BEAKER) 2.80 M/ L 4.63-6.08 L (test code = 761) HEMOGLOBIN (BEAKER) (test code = 8.0 GM/DL 13.7-17.5 L 410) HEMATOCRIT (BEAKER) (test code = 26.1 % 40.1-51.0 L 411) MEAN CORPUSCULAR VOLUME (BEAKER) 93.2 fL 79.0-92.2 H (test code = 753) MEAN CORPUSCULAR HEMOGLOBIN 28.6 pg 25.7-32.2 (BEAKER) (test code = 751) MEAN CORPUSCULAR HEMOGLOBIN CONC 30.7 GM/DL 32.3-36.5 L (BEAKER) (test code = 752) RED CELL DISTRIBUTION WIDTH 17.5 % 11.6-14.4 H (BEAKER) (test code = 412) PLATELET COUNT (BEAKER) (test 274 K/CU MM 150-450 code = 756) MEAN PLATELET VOLUME (BEAKER) 10.3 fL 9.4-12.4 (test code = 754) NUCLEATED RED BLOOD CELLS 0 /100 WBC 0-0 (BEAKER) (test code = 413) POCT-GLUCOSE [id number] 21:43:00 Test Item Value Reference Range Interpretation Comments POC-GLUCOSE METER 130 mg/dL 70-110 H : TESTED A T [facility] 6720 (BEAKER) (test code = [facility], 1538) 08698: Dimension Warehouse Supervisor/Techni estefani ID = [id number] for Sully Rivera POCT-GLUCOSE [id number] 18:06:00 Test Item Value Reference Range Interpretation Comments POC-GLUCOSE METER 85 mg/dL 70-110 : TESTED A T [facility] 6720 (BEAKER) (test code = [facility], 1538) 42452: Dimension Warehouse Supervisor/Techni estefani ID = [id number] for QUANG OS, JACOB POCT-GLUCOSE [id number] 12:10:00 Test Item Value Reference Range Interpretation Comments POC-GLUCOSE METER 105 mg/dL 70-110 : TESTED A T [facility] 6720 (BEAKER) (test code = [facility], 1538) 06292: Dimension Warehouse Supervisor/Techni estefani ID = [id number] for SA NTOS, JACOB POCT-GLUCOSE [id number] 08:18:00 Test Item Value Reference Range Interpretation Comments POC-GLUCOSE METER 79 mg/dL 70-110 : TESTED A T [facility] 6720 (BEAKER) (test code = [facility], 1538) 94975: Dimension Warehouse Supervisor/Techni estefani ID = [id number] for QUANG OS, JACOB CBC (HEMOGRAM ONLY)2020-09-30 04:35:00 Test Item Value Reference Range Interpretation Comments WHITE BLOOD CELL COUNT (BEAKER) 7.6 K/ L 3.5-10.5 (test code = 775) RED BLOOD CELL COUNT (BEAKER) 2.88 M/ L 4.63-6.08 L (test code = 761) HEMOGLOBIN (BEAKER) (test code = 8.3 GM/DL 13.7-17.5 L 410) HEMATOCRIT (BEAKER) (test code = 26.2 % 40.1-51.0 L 411) MEAN CORPUSCULAR VOLUME (BEAKER) 91.0 fL 79.0-92.2 (test code = 753) MEAN CORPUSCULAR HEMOGLOBIN 28.8 pg 25.7-32.2 (BEAKER) (test code = 751) MEAN CORPUSCULAR HEMOGLOBIN CONC 31.7 GM/DL 32.3-36.5 L (BEAKER) (test code = 752) RED CELL DISTRIBUTION WIDTH 17.4 % 11.6-14.4 H (BEAKER) (test code = 412) PLATELET COUNT (AKER) (test 274 K/CU MM 150-450 code = 756) MEAN PLATELET VOLUME (BEAKER) 10.1 fL 9.4-12.4 (test code = 754) NUCLEATED RED BLOOD CELLS 0 /100 WBC 0-0 (BEAKER) (test code = 413) POCT-GLUCOSE [id number] 21:43:00 Test Item Value Reference Range Interpretation Comments POC-GLUCOSE METER 122 mg/dL 70-110 H : TESTED A T [facility] 6720 [facility] (test code = [facility], 153) 13757: Dimension Warehouse Supervisor/Techni estefani ID = [id number] for CA RBAJAL, TIMA POCT-GLUCOSE [id number] 16:21:00 Test Item Value Reference Range Interpretation Comments POC-GLUCOSE METER 105 mg/dL 70-110 : TESTED A T [facility] (BEAKER) (test code [facility], = 1538) 18807: [employer] Warehouse Supervisor/Techni estefani ID = [id number] for LATT IMORE - FLETCHER, COLLINS POCT-GLUCOSE [id number] 12:38:00 Test Item Value Reference Range Interpretation Comments POC-GLUCOSE METER 79 mg/dL 70-110 : TESTED A T [facility] (BEAKER) (test code = [facility], 1538) 61618: [employer] Ware[employer] Supervisor/Techni estefani ID = [id number] for LATT IMORE - FLETCHER, COLLINS POCT-GLUCOSE [id number] 07:57:00 Test Item Value Reference Range Interpretation Comments POC-GLUCOSE METER 84 mg/dL 70-110 : TESTED A T [facility] (BEAKER) (test code = [facility], 1538) 07694: [employer] Warehouse Supervisor/Techni estefani ID = [id number] for LATT IMORE - FLETCHER, COLLINS [id number] 05:25:00 Test Item Value Reference Range Interpretation Comments PROTIME (BEAKER) (test 15.4 seconds 11.9-14.2 H code = 759) INR (BEAKER) (test 1.24 See_Comment [Automat ed code = 370) message] The sy stem which generated this result transmitted reference range : <=5.90. The reference range was not used to interpret this result as normal/abnormal . PARTIAL THROMBOPLASTIN 37.6 seconds 22.5-36.0 H TIME (BEAKER) (test code = 760) RECOMMENDED COUMADIN/WARFARIN INR THERAPY RANGESSTANDARD DOSE: 2.0 - 3.0 Includes: PROPHYLAXIS forvenous thrombosis, systemic embolization; TREATMENT for venous thrombosis and/or pulmonary embolus.HIGH RISK: Target INR is 2.5-3.5 for patients with mechanical heart valves.CBC (HEMOGRAM ONLY)2020-09-29 05:18:00 Test Item Value Reference Range Interpretation Comments WHITE BLOOD CELL COUNT (BEAKER) 9.3 K/ L 3.5-10.5 (test code = 775) RED BLOOD CELL COUNT (BEAKER) 2.76 M/ L 4.63-6.08 L (test code = 761) HEMOGLOBIN (BEAKER) (test code = 7.8 GM/DL 13.7-17.5 L 410) HEMATOCRIT (BEAKER) (test code = 25.2 % 40.1-51.0 L 411) MEAN CORPUSCULAR VOLUME (BEAKER) 91.3 fL 79.0-92.2 (test code = 753) MEAN CORPUSCULAR HEMOGLOBIN 28.3 pg 25.7-32.2 (BEAKER) (test code = 751) MEAN CORPUSCULAR HEMOGLOBIN CONC 31.0 GM/DL 32.3-36.5 L (BEAKER) (test code = 752) RED CELL DISTRIBUTION WIDTH 17.6 % 11.6-14.4 H (BEAKER) (test code = 412) PLATELET COUNT (BEAKER) (test 268 K/CU MM 150-450 code = 756) MEAN PLATELET VOLUME (BEAKER) 9.9 fL 9.4-12.4 (test code = 754) NUCLEATED RED BLOOD CELLS 0 /100 WBC 0-0 (BEAKER) (test code = 413) POCT-GLUCOSE [id number] 21:38:00 Test Item Value Reference Range Interpretation Comments POC-GLUCOSE METER 138 mg/dL 70-110 H : TESTED A T [facility] 6720 (BEAKER) (test code = [facility] Jose [facility], 1538) 07240: Dimension Warehouse Supervisor/Techni estefani ID = [id number] for JAD SALGUERO POCT-GLUCOSE [id number] 17:13:00 Test Item Value Reference Range Interpretation Comments POC-GLUCOSE METER 97 mg/dL 70-110 : TESTED A T [facility] 6720 (BEAKER) (test code = [facility] Jose [facility], 1538) 87587: Dimension Warehouse Supervisor/Techni estefani ID = [id number] for GUNNER MUHAMMAD POCT-GLUCOSE [id number] 12:15:00 Test Item Value Reference Range Interpretation Comments POC-GLUCOSE METER 105 mg/dL 70-110 : TESTED A T [facility] 6720 (BEAKER) (test code = [facility] Jose [facility], 1538) 80355: Dimension Warehouse Supervisor/Techni estefani ID = [id number] for GUNNER PANDYA SARS-COV2/RT-PCR ([facility])2020-09-28 11:54:00 Test Item Value Reference Range Interpretation Comments SARS-COV2/RT-PCR Negative Negative The SARS-Co V-2 target (test code = 4983198) nuclei c acids are not detected in thi s specimen. The presence of SARS-CoV-2/FLU/RSV viral nucleic acids cannot rule out co- infections or disease caused by other viral or bacterial pathogens. As with any molecular test, mutations within the target regions of the Xpert Xpress SARS-CoV-2/Flu/RSV test could affect primer and/or probe binding resulting in failure to detect the presence of virus or the virus being detected less predictably. False negative results may occur if the virus is present at levels below the analytical limit of detection in this specimen.This Xpert Xpress SARS-CoV-2/Flu/RSV test is a rapid, real-time RT-PCR test intended for the qualitative detection of nucleic acid from Xpert Xpress SARS-CoV-2/Flu/RSV in a nasopharyngeal swab specimen collected from individuals suspected of Xpert Xpress SARS-CoV-2/Flu/RSV by their healthcare provider. Results from luna Xpert Xpress SARS-CoV-2/Flu/RSV test should be correlated with the clinical history, epidemiological data, and other data available to the clinician evaluating the patient. Viral nucleic acid may persist in vivo, independent of virus viability. Detection of analyte target(s) does not imply that the corresponding virus(es) are infectious or are the causative agents for clinical symptoms.This test has not been Food and Drug [...] 564(g) of the Act.Fact Sheet for Healthcare Providers :https://www.Hubba/Documents/Xpert%20Xpress%20SARS%20CoV-2/Fact%20Sheets/3 02-3902%90LRYO-QIP-9%20HEALTHCARE%20PROVIDERS%20FACT%20SHEET.pdfFact Sheet for Healthcare Patients:https://www.Hubba /Documents/Xpert%20Xpress%20SARS%20Cov-2/Fact%20Sheets/302-3801%38FMMB-MEZ-3%20P ATIENT%20FACT%20SHEET.pdfBASI METABOLIC [id number] 11:14:00 Test Item Value Reference Range Interpretation Comments SODIUM (BEAKER) 135 meq/L 136-145 L (test code = 381) POTASSIUM (BEAKER) 4.7 meq/L 3.5-5.1 (test code = 379) CHLORIDE (BEAKER) 97 meq/L 98-107 L (test code = 382) CO2 (BEAKER) (test 23 meq/L 22-29 code = 355) BLOOD UREA NITROGEN 26 mg/dL 7-21 H (BEAKER) (test code = 354) CREATININE (BEAKER) 8.62 mg/dL 0.57-1.25 H (test code = 358) GLUCOSE RANDOM 98 mg/dL 70-105 (BEAKER) (test code = 652) CALCIUM (BEAKER) 8.3 mg/dL 8.4-10.2 L (test code = 697) EGFR (BEAKER) (test 6 mL/min/1.73 ESTIMAT ED GFR IS code = 1092) sq m NOT ACCURATE CREATININE CLEARANCE IN PREDICTING GLOMERULAR FILTRATION RATE . ESTIMATED GFR I S NOT APPLICABLE FOR DIALYSIS PATIEN TS. Dimension Warehouse Supervisor ID - [id number] (HEMOGRAM ONLY)2020-09-28 09:37:00 Test Item Value Reference Range Interpretation Comments WHITE BLOOD CELL COUNT (BEAKER) 9.4 K/ L 3.5-10.5 (test code = 775) RED BLOOD CELL COUNT (BEAKER) 2.34 M/ L 4.63-6.08 L (test code = 761) HEMOGLOBIN (BEAKER) (test code = 6.7 GM/DL 13.7-17.5 L 410) HEMATOCRIT (BEAKER) (test code = 21.8 % 40.1-51.0 L 411) MEAN CORPUSCULAR VOLUME (BEAKER) 93.2 fL 79.0-92.2 H (test code = 753) MEAN CORPUSCULAR HEMOGLOBIN 28.6 pg 25.7-32.2 (BEAKER) (test code = 751) MEAN CORPUSCULAR HEMOGLOBIN CONC 30.7 GM/DL 32.3-36.5 L (BEAKER) (test code = 752) RED CELL DISTRIBUTION WIDTH 18.1 % 11.6-14.4 H (BEAKER) (test code = 412) PLATELET COUNT (BEAKER) (test 277 K/CU MM 150-450 code = 756) MEAN PLATELET VOLUME (BEAKER) 9.6 fL 9.4-12.4 (test code = 754) NUCLEATED RED BLOOD CELLS 0 /100 WBC 0-0 (BEAKER) (test code = 413) POCT-GLUCOSE [id number] 16:33:00 Test Item Value Reference Range Interpretation Comments POC-GLUCOSE METER 98 mg/dL 70-110 : [facility] ([employer] SolutionsAKER) (test code = [place], 1538) 41247: Dimension Warehouse Supervisor/Techni estefani ID = [id number] for JAD MICHAEL POCT-GLUCOSE [id number] 12:28:00 Test Item Value Reference Range Interpretation Comments POC-GLUCOSE METER 88 mg/dL 70-110 : TESTED A T [facility] 6720 (BEAKER) (test code = [facility], 1538) 30498: Dimension Warehouse Supervisor/Techni estefani ID = [id number] for JAD MICHAEL OBTAINED CULTURE + GRAM [id number] 08:40:00 Test Item Value Reference Interpretation Comments Range CULTURE (BEAKER) ENTEROCOCCUS A 1+ Enteroco ccus (test code = 1095) FAECALIS faecalis Ampicillin (test S code = 26) Linezolid (test S code = 40) Vancomycin (test S code = 13) CULTURE (BEAKER) A <1+ Pseudom onas (test code = 1095) aeruginos a CULTURE (BEAKER) PSEUDOMONAS A <1+ Staphyl ococcus (test code = 1095) AERUGINOSA aureus Amikacin (test code See_Comment S [Automa doris = 1) message] The sy stem which generated this result transmitted reference range : Susceptible 0-1 6 , Resistant <0 or >16 . The reference range was not u sed to interpret th is result as normal/abnormal . Aztreonam (test See_Comment R [Automated code = 32) message] The sy stem which generated this result transmitted reference range : Susceptible 0-8 , Resistant <0 or >8 . The reference range was not u sed to interpret th is result as normal/abnormal . Cefepime (test code See_Comment R [Automa doris = 51) message] The sy stem which generated this result transmitted reference range : Susceptible 0-8 , Resistant <0 or >8 . The reference range was not u sed to interpret th is result as normal/abnormal . Ceftazidime (test See_Comment R [Automate d code = 27) message] The sy stem which generated this result transmitted reference range : Susceptible 0-8 , Resistant <0 or >8 . The reference range was not u sed to interpret th is result as normal/abnormal . Ciprofloxacin (test See_Comment S [Automa doris code = 7) message] The sy stem which generated this result transmitted reference range : Susceptible 0-0 .5 , Resistant <0 or >.5 . The reference range was not u sed to interpret th is result as normal/abnormal . Doripenem (test See_Comment R [Automated code = 100) message] The sy stem which generated this result transmitted reference range : Susceptible 0-2 , Resistant <0 or >2 . The reference range was not u sed to interpret th is result as normal/abnormal . Gentamicin (test See_Comment S [Automated code = 18) message] The sy stem which generated this result transmitted reference range : Susceptible 0-4 , Resistant <0 or >4 . The reference range was not u sed to interpret th is result as normal/abnormal . Imipenem (test code See_Comment R [Automa doris = 19) message] The sy stem which generated this result transmitted reference range : Susceptible 0-2 , Resistant <0 or >2 . The reference range was not u sed to interpret th is result as normal/abnormal . Levofloxacin (test See_Comment S [Automat ed code = 22) message] The sy stem which generated this result transmitted reference range : Susceptible 0-1 , Resistant <0 or >1 . The reference range was not u sed to interpret th is result as normal/abnormal . Meropenem (test See_Comment R [Automated code = 34) message] The sy stem which generated this result transmitted reference range : Susceptible 0-2 , Resistant <0 or >2 . The reference range was not u sed to interpret th is result as normal/abnormal . Piperacillin (test See_Comment R [Automat ed code = 24) message] The sy stem which generated this result transmitted reference range : Susceptible 0-1 6 , Resistant <0 or >16 . The reference range was not u sed to interpret th is result as normal/abnormal . Piperacillin + See_Comment R [Automated Tazobactam (test message] e system code = 29) which generated this result transmitted reference range : Susceptible 0-1 6 , Resistant <0 or >16 . The reference range was not u sed to interpret th is result as normal/abnormal . Tobramycin (test See_Comment S [Automated code = 25) message] The sy stem which generated this result transmitted reference range : Susceptible 0-4 , Resistant <0 or >4 . The reference range was not u sed to interpret th is result as normal/abnormal . GRAM STAIN RESULT 1+ WBCs (BEAKER) (test code = 1123) GRAM STAIN RESULT <1+ gram positive (BEAKER) (test code rods = 775543) GRAM STAIN RESULT <1+ gram positive (BEAKER) (test code cocci in clusters = 555901) POCT-GLUCOSE [id number] 07:34:00 Test Item Value Reference Range Interpretation Comments POC-GLUCOSE METER 89 mg/dL 70-110 : TESTED A T [facility] 6720 (BEAKER) (test code = [facility], 153) 38412: Dimension Warehouse Supervisor/Techni estefani ID = [id number] for JAD MICHAEL CBC (HEMOGRAM ONLY)2020-09-27 06:32:00 Test Item Value Reference Range Interpretation Comments WHITE BLOOD CELL COUNT (BEAKER) 10.3 K/ L 3.5-10.5 (test code = 775) RED BLOOD CELL COUNT (BEAKER) 2.60 M/ L 4.63-6.08 L (test code = 761) HEMOGLOBIN (BEAKER) (test code = 7.2 GM/DL 13.7-17.5 L 410) HEMATOCRIT (BEAKER) (test code = 24.4 % 40.1-51.0 L 411) MEAN CORPUSCULAR VOLUME (BEAKER) 93.8 fL 79.0-92.2 H (test code = 753) MEAN CORPUSCULAR HEMOGLOBIN 27.7 pg 25.7-32.2 (BEAKER) (test code = 751) MEAN CORPUSCULAR HEMOGLOBIN CONC 29.5 GM/DL 32.3-36.5 L (BEAKER) (test code = 752) RED CELL DISTRIBUTION WIDTH 18.0 % 11.6-14.4 H (BEAKER) (test code = 412) PLATELET COUNT (BEAKER) (test 280 K/CU MM 150-450 code = 756) MEAN PLATELET VOLUME (BEAKER) 10.0 fL 9.4-12.4 (test code = 754) NUCLEATED RED BLOOD CELLS 0 /100 WBC 0-0 (BEAKER) (test code = 413) POCT-GLUCOSE [id number] 22:02:00 Test Item Value Reference Range Interpretation Comments POC-GLUCOSE METER 156 mg/dL 70-110 H : TESTED A T [facility] 6720 (BEAKER) (test code = [facility], 153) 46788: Dimension Warehouse Supervisor/Techni estefani ID = [id number] for Sully Rivera POCT-GLUCOSE [id number] 12:02:00 Test Item Value Reference Range Interpretation Comments POC-GLUCOSE METER 116 mg/dL 70-110 H : TESTED A T [facility] 6720 (BEAKER) (test code = [facility] [place], 1538) 79298: Dimension Warehouse Supervisor/Techni estefani ID = [id number] for GUNNER PANDYA POCT-GLUCOSE [id number] 08:31:00 Test Item Value Reference Range Interpretation Comments POC-GLUCOSE METER 93 mg/dL 70-110 : TESTED Vikas [facility] (BEAKER) (test code = [facility], 1538) 86599: Dimension Warehouse Supervisor/Techni estefani ID = [id number] for FAGUNNER MCNALLY ANAEROBIC [id number] 07:58:00 Test Item Value Reference Range Interpretation Comments CULTURE (BEAKER) (test No anaerobes isolated code = 1095) ANAEROBIC [id number] 07:46:00 Test Item Value Reference Range Interpretation Comments CULTURE (BEAKER) (test No anaerobes isolated code = 1095) CBC (HEMOGRAM ONLY)2020-09-26 06:40:00 Test Item Value Reference Range Interpretation Comments WHITE BLOOD CELL COUNT (BEAKER) 11.3 K/ L 3.5-10.5 H (test code = 775) RED BLOOD CELL COUNT (BEAKER) 2.53 M/ L 4.63-6.08 L (test code = 761) HEMOGLOBIN (BEAKER) (test code = 7.0 GM/DL 13.7-17.5 L 410) HEMATOCRIT (BEAKER) (test code = 23.5 % 40.1-51.0 L 411) MEAN CORPUSCULAR VOLUME (BEAKER) 92.9 fL 79.0-92.2 H (test code = 753) MEAN CORPUSCULAR HEMOGLOBIN 27.7 pg 25.7-32.2 (BEAKER) (test code = 751) MEAN CORPUSCULAR HEMOGLOBIN CONC 29.8 GM/DL 32.3-36.5 L (BEAKER) (test code = 752) RED CELL DISTRIBUTION WIDTH 17.3 % 11.6-14.4 H (BEAKER) (test code = 412) PLATELET COUNT (BEAKER) (test 279 K/CU MM 150-450 code = 756) MEAN PLATELET VOLUME (BEAKER) 9.3 fL 9.4-12.4 L (test code = 754) NUCLEATED RED BLOOD CELLS 0 /100 WBC 0-0 (BEAKER) (test code = 413) POCT-GLUCOSE [id number] 22:24:00 Test Item Value Reference Range Interpretation Comments POC-GLUCOSE METER 129 mg/dL 70-110 H : TESTED A T [facility] 6720 (BEAKER) (test code = [facility], 153) 46094: Dimension Warehouse Supervisor/Techni estefani ID = [id number] for TEJINDER MORALES POCT-GLUCOSE [id number] 17:39:00 Test Item Value Reference Range Interpretation Comments POC-GLUCOSE METER 106 mg/dL 70-110 : TESTED A T [facility] 6720 (BEAKER) (test code = [facility], 1538) 52367: Dimension Warehouse Supervisor/Techni estefani ID = [id number] for JACOB LYLES HEMOGLOBIN AND [id number] 15:48:00 Test Item Value Reference Range Interpretation Comments HEMOGLOBIN (BEAKER) (test code = 6.1 GM/DL 13.7-17.5 L 410) HEMATOCRIT (BEAKER) (test code = 20.6 % 40.1-51.0 L 411) Dimension Warehouse Supervisor ID - [id number]-GLUCOSE [id number] 11:53:00 Test Item Value Reference Range Interpretation Comments POC-GLUCOSE METER 122 mg/dL 70-110 H : TESTED A T [facility] 6720 (BEAKER) (test code = [facility], 153) 04991: Dimension Warehouse Supervisor/Techni estefani ID = [id number] for JACOB LYLES POCT-GLUCOSE [id number] 08:02:00 Test Item Value Reference Range Interpretation Comments POC-GLUCOSE METER 105 mg/dL 70-110 : TESTED A T [facility] 6720 (BEAKER) (test code = [facility], 1538) 88933: Dimension Warehouse Supervisor/Techni estefani ID = [id number] for JACOB LYLES CBC (HEMOGRAM ONLY)2020-09-25 06:49:00 Test Item Value Reference Range Interpretation Comments WHITE BLOOD CELL COUNT (BEAKER) 11.7 K/ L 3.5-10.5 H (test code = 775) RED BLOOD CELL COUNT (BEAKER) 2.45 M/ L 4.63-6.08 L (test code = 761) HEMOGLOBIN (BEAKER) (test code = 6.6 GM/DL 13.7-17.5 L 410) HEMATOCRIT (BEAKER) (test code = 22.5 % 40.1-51.0 L 411) MEAN CORPUSCULAR VOLUME (BEAKER) 91.8 fL 79.0-92.2 (test code = 753) MEAN CORPUSCULAR HEMOGLOBIN 26.9 pg 25.7-32.2 (BEAKER) (test code = 751) MEAN CORPUSCULAR HEMOGLOBIN CONC 29.3 GM/DL 32.3-36.5 L (BEAKER) (test code = 752) RED CELL DISTRIBUTION WIDTH 17.4 % 11.6-14.4 H (BEAKER) (test code = 412) PLATELET COUNT (BEAKER) (test 287 K/CU MM 150-450 code = 756) MEAN PLATELET VOLUME (BEAKER) 9.7 fL 9.4-12.4 (test code = 754) NUCLEATED RED BLOOD CELLS 0 /100 WBC 0-0 (BEAKER) (test code = 413) POCT-GLUCOSE [id number] 22:19:00 Test Item Value Reference Range Interpretation Comments POC-GLUCOSE METER 174 mg/dL 70-110 H : TESTED A T [facility] 6720 (BEAKER) (test code = [facility], 1537) 57684: Dimension Warehouse Supervisor/Techni estefani ID = [id number] for Sully Rivera POCT-GLUCOSE [id number] 18:50:00 Test Item Value Reference Range Interpretation Comments POC-GLUCOSE METER 152 mg/dL 70-110 H : TESTED A T [facility] 6720 (BEAKER) (test code [facility], = 153) 47550: Dimension Warehouse Supervisor/Techni estefani ID = [id number] for Shonna normanKhanhgillianjayme POCT-GLUCOSE [id number] 11:55:00 Test Item Value Reference Range Interpretation Comments POC-GLUCOSE METER 169 mg/dL 70-110 H : TESTED A T [facility] 6720 (BEAKER) (test code = [facility], 153) 95810: Dimension Warehouse Supervisor/Techni estefani ID = [id number] for SA DE LEON JACOB POCT-GLUCOSE [id number] 08:28:00 Test Item Value Reference Range Interpretation Comments POC-GLUCOSE METER 110 mg/dL 70-110 : TESTED A T [facility] 6720 (BEAKER) (test code = [facility], 1538) 00198: Dimension Warehouse Supervisor/Techni estefani ID = [id number] for JACOB LYLES BASIC METABOLIC [id number] 07:01:00 Test Item Value Reference Range Interpretation Comments SODIUM (BEAKER) 138 meq/L 136-145 (test code = 381) POTASSIUM (BEAKER) 4.8 meq/L 3.5-5.1 (test code = 379) CHLORIDE (BEAKER) 98 meq/L 98-107 (test code = 382) CO2 (BEAKER) (test 24 meq/L 22-29 code = 355) BLOOD UREA NITROGEN 37 mg/dL 7-21 H (BEAKER) (test code = 354) CREATININE (BEAKER) 8.94 mg/dL 0.57-1.25 H (test code = 358) GLUCOSE RANDOM 121 mg/dL 70-105 H (BEAKER) (test code = 652) CALCIUM (BEAKER) 7.8 mg/dL 8.4-10.2 L (test code = 697) EGFR (BEAKER) (test 6 mL/min/1.73 ESTIMAT ED GFR IS code = 1092) sq m NOT ACCURATE CREATININE CLEARANCE IN PREDICTING GLOMERULAR FILTRATION RATE . ESTIMATED GFR I S NOT APPLICABLE FOR DIALYSIS PATIEN TS. Dimension Warehouse Supervisor ID - BASSEM [id number] 06:35:00 Test Item Value Reference Range Interpretation Comments MAGNESIUM (BEAKER) (test code = 2.2 mg/dL 1.6-2.6 627) Dimension Warehouse Supervisor ID - BASSEM [id number] 06:35:00 Test Item Value Reference Range Interpretation Comments PHOSPHORUS (BEAKER) (test code = 6.0 mg/dL 2.3-4.7 H 604) Dimension Warehouse Supervisor ID - BASSEM WCBC (HEMOGRAM ONLY)2020-09-24 05:34:00 Test Item Value Reference Range Interpretation Comments WHITE BLOOD CELL COUNT (BEAKER) 16.6 K/ L 3.5-10.5 H (test code = 775) RED BLOOD CELL COUNT (BEAKER) 2.65 M/ L 4.63-6.08 L (test code = 761) HEMOGLOBIN (BEAKER) (test code = 7.2 GM/DL 13.7-17.5 L 410) HEMATOCRIT (BEAKER) (test code = 23.6 % 40.1-51.0 L 411) MEAN CORPUSCULAR VOLUME (BEAKER) 89.1 fL 79.0-92.2 (test code = 753) MEAN CORPUSCULAR HEMOGLOBIN 27.2 pg 25.7-32.2 (BEAKER) (test code = 751) MEAN CORPUSCULAR HEMOGLOBIN CONC 30.5 GM/DL 32.3-36.5 L (BEAKER) (test code = 752) RED CELL DISTRIBUTION WIDTH 16.8 % 11.6-14.4 H (BEAKER) (test code = 412) PLATELET COUNT (BEAKER) (test 382 K/CU MM 150-450 code = 756) MEAN PLATELET VOLUME (BEAKER) 10.0 fL 9.4-12.4 (test code = 754) NUCLEATED RED BLOOD CELLS 0 /100 WBC 0-0 (BEAKER) (test code = 413) POCT-GLUCOSE [id number] 05:21:00 Test Item Value Reference Range Interpretation Comments POC-GLUCOSE METER 107 mg/dL 70-110 : TESTED A T [facility] 6720 (BEAKER) (test code [facility], = 1538) 85929: Dimension Warehouse Supervisor/Techni estefani ID = [id number] for DARLYN RRE, NARCISO POCT-GLUCOSE [id number] 20:32:00 Test Item Value Reference Range Interpretation Comments POC-GLUCOSE METER 133 mg/dL 70-110 H : TESTED A T [facility] 6720 (BEAKER) (test code = [facility], 153) 07947: Dimension Warehouse Supervisor/Techni estefani ID = [id number] for UL LATMARCELO, SJ POCT-GLUCOSE [id number] 17:23:00 Test Item Value Reference Range Interpretation Comments POC-GLUCOSE METER 141 mg/dL 70-110 H : TESTED A T [facility] 6720 (BEAKER) (test code = [facility], 153) 01813: Dimension Warehouse Supervisor/Techni estefani ID = [id number] for TRE TY GUNNER SARS-COV2/RT-PCR ([facility])2020-09-23 16:45:00 Test Item Value Reference Range Interpretation Comments SARS-COV2/RT-PCR (test Negative Not Detected, Negative, code = 2730348) See external report for linked test SARS-COV-2 PERFORMING LAB [facility] (test code = 1284551) Negative result for this test determines that [...] 564(g) of the Act.Fact Sheet for Healthcare Providers:https://www.[employer].com/sites/default/files/product/documents/Fact_Shee p_MZ_Oiyixvpvw_Jubw_ZTFO-FjO-9.pdfFact Sheet for Healthcare Patients:https://www.[employer].com/sites/default/files/product/ documents/Grph_Zhoek_Ubbzyony_Oipc_GMND-WsV-3.pdfPerforming Laboratory:[facility], [place] [address]BPFYD CULTURE 2020-09-23 12:00:00 Test Item Value Reference Range Interpretation Comments CULTURE (BEAKER) (test No growth in 5 days code = 1095) POCT-GLUCOSE [id number] 08:40:00 Test Item Value Reference Range Interpretation Comments POC-GLUCOSE METER 82 mg/dL 70-110 : [facility] (test code = [facility], 1538) 44938: Dimension Warehouse Supervisor/Techni estefani ID = [id number] for GUNNER MUHAMMAD BASIC METABOLIC [id number] 06:29:00 Test Item Value Reference Range Interpretation Comments SODIUM (BEAKER) 138 meq/L 136-145 (test code = 381) POTASSIUM (BEAKER) 4.0 meq/L 3.5-5.1 (test code = 379) CHLORIDE (BEAKER) 99 meq/L 98-107 (test code = 382) CO2 (BEAKER) (test 29 meq/L 22-29 code = 355) BLOOD UREA NITROGEN 25 mg/dL 7-21 H (BEAKER) (test code = 354) CREATININE (BEAKER) 6.93 mg/dL 0.57-1.25 H (test code = 358) GLUCOSE RANDOM 86 mg/dL 70-105 (BEAKER) (test code = 652) CALCIUM (BEAKER) 8.2 mg/dL 8.4-10.2 L (test code = 697) EGFR (BEAKER) (test 8 mL/min/1.73 ESTIMAT ED GFR IS code = 1092) sq m NOT ACCURATE CREATININE CLEARANCE IN PREDICTING GLOMERULAR FILTRATION RATE . ESTIMATED GFR I S NOT APPLICABLE FOR DIALYSIS PATIEN TS. Dimension Warehouse Supervisor ID - JAQUELINE [id number] 06:27:00 Test Item Value Reference Range Interpretation Comments MAGNESIUM (BEAKER) (test code = 1.9 mg/dL 1.6-2.6 627) Dimension Warehouse Supervisor ID - JAQUELINE [id number] 06:27:00 Test Item Value Reference Range Interpretation Comments PHOSPHORUS (BEAKER) (test code = 4.5 mg/dL 2.3-4.7 604) Dimension Warehouse Supervisor ID - JAQUELINE MCBC (HEMOGRAM ONLY)2020-09-23 06:08:00 Test Item Value Reference Range Interpretation Comments WHITE BLOOD CELL COUNT (BEAKER) 11.8 K/ L 3.5-10.5 H (test code = 775) RED BLOOD CELL COUNT (BEAKER) 3.06 M/ L 4.63-6.08 L (test code = 761) HEMOGLOBIN (BEAKER) (test code = 8.1 GM/DL 13.7-17.5 L 410) HEMATOCRIT (BEAKER) (test code = 27.1 % 40.1-51.0 L 411) MEAN CORPUSCULAR VOLUME (BEAKER) 88.6 fL 79.0-92.2 (test code = 753) MEAN CORPUSCULAR HEMOGLOBIN 26.5 pg 25.7-32.2 (BEAKER) (test code = 751) MEAN CORPUSCULAR HEMOGLOBIN CONC 29.9 GM/DL 32.3-36.5 L (BEAKER) (test code = 752) RED CELL DISTRIBUTION WIDTH 16.3 % 11.6-14.4 H (BEAKER) (test code = 412) PLATELET COUNT (BEAKER) (test 344 K/CU MM 150-450 code = 756) MEAN PLATELET VOLUME (BEAKER) 9.4 fL 9.4-12.4 (test code = 754) NUCLEATED RED BLOOD CELLS 0 /100 WBC 0-0 (BEAKER) (test code = 413) POCT-GLUCOSE [id number] 20:54:00 Test Item Value Reference Range Interpretation Comments POC-GLUCOSE METER 111 mg/dL 70-110 H : TESTED A T [facility] 6720 (BEAKER) (test code = [facility], 153) 12446: [employer] Ware[employer] Supervisor/Techni estefani ID = [id number] for UL LATMARCELO SJ POCT-GLUCOSE [id number] 17:25:00 Test Item Value Reference Range Interpretation Comments POC-GLUCOSE METER 119 mg/dL 70-110 H : TESTED A T [facility] 6720 (BEAKER) (test code = [facility], 153) 12087: [employer] Warehouse Supervisor/Techni estefani ID = [id number] for GUN[facility] PANDYA [employer]IC METABOLIC [id number] 12:39:00 Test Item Value Reference Range Interpretation Comments SODIUM (BEAKER) 135 meq/L 136-145 L (test code = 381) POTASSIUM (BEAKER) 4.6 meq/L 3.5-5.1 (test code = 379) CHLORIDE (BEAKER) 97 meq/L 98-107 L (test code = 382) CO2 (BEAKER) (test 24 meq/L 22-29 code = 355) BLOOD UREA NITROGEN 43 mg/dL 7-21 H (BEAKER) (test code = 354) CREATININE (BEAKER) 9.05 mg/dL 0.57-1.25 H (test code = 358) GLUCOSE RANDOM 102 mg/dL 70-105 (BEAKER) (test code = 652) CALCIUM (BEAKER) 7.3 mg/dL 8.4-10.2 L (test code = 697) EGFR (BEAKER) (test 6 mL/min/1.73 ESTIMAT ED GFR IS code = 1092) sq m NOT ACCURATE CREATININE CLEARANCE IN PREDICTING GLOMERULAR FILTRATION RATE . ESTIMATED GFR I S NOT APPLICABLE FOR DIALYSIS PATIEN TS. [employer] Ware[employer] Supervisor ID - ANTONY [id number] 12:36:00 Test Item Value Reference Range Interpretation Comments MAGNESIUM (BEAKER) (test code = 2.0 mg/dL 1.6-2.6 627) [employer] Supervisor ID Benjie HARDY [id number] 12:36:00 Test Item Value Reference Range Interpretation Comments PHOSPHORUS (BEAKER) (test code = 5.8 mg/dL 2.3-4.7 H 604) Dimension Warehouse Supervisor ID - ANTONY FPOCT-GLUCOSE [id number] 12:22:00 Test Item Value Reference Range Interpretation Comments POC-GLUCOSE METER 104 mg/dL 70-110 : TESTED A T [facility] 6720 (BEAKER) (test code = [facility], 153) 15404: Dimension Warehouse Supervisor/Techni estefani ID = [id number] for FA ITH, GUNNER POCT-GLUCOSE [id number] 08:22:00 Test Item Value Reference Range Interpretation Comments POC-GLUCOSE METER 100 mg/dL 70-110 : TESTED A T [facility] 6720 (BEAKER) (test code = [facility], 1538) 25011: Dimension Warehouse Supervisor/Techni estefani ID = [id number] for FA ITH, GUNNER POCT-GLUCOSE [id number] 21:12:00 Test Item Value Reference Range Interpretation Comments POC-GLUCOSE METER 133 mg/dL 70-110 H : TESTED A T [facility] 6720 (BEAKER) (test code = [facility], 1538) 27882: Dimension Warehouse Supervisor/Techni estefani ID = [id number] for ROSIO DUFF POCT-GLUCOSE [id number] 16:31:00 Test Item Value Reference Range Interpretation Comments POC-GLUCOSE METER 127 mg/dL 70-110 H : TESTED A T [facility] 6720 (BEAKER) (test code = DASIA Garcia [facility], 1538) 37843: Dimension Warehouse Supervisor/Techni estefani ID = [id number] for Ronald Coffman POCT-GLUCOSE [id number] 12:56:00 Test Item Value Reference Range Interpretation Comments POC-GLUCOSE METER 99 mg/dL 70-110 : TESTED A T [facility] 6720 (BEAKER) (test code = DASIA Garcia [facility], 1538) 46335: Dimension Warehouse Supervisor/Techni estefani ID = [id number] for Aminata ie, Ronald BASIC METABOLIC [id number] 12:15:00 Test Item Value Reference Range Interpretation Comments SODIUM (BEAKER) 136 meq/L 136-145 (test code = 381) POTASSIUM (BEAKER) 4.6 meq/L 3.5-5.1 (test code = 379) CHLORIDE (BEAKER) 97 meq/L 98-107 L (test code = 382) CO2 (BEAKER) (test 26 meq/L 22-29 code = 355) BLOOD UREA NITROGEN 37 mg/dL 7-21 H (BEAKER) (test code = 354) CREATININE (BEAKER) 7.87 mg/dL 0.57-1.25 H (test code = 358) GLUCOSE RANDOM 101 mg/dL 70-105 (BEAKER) (test code = 652) CALCIUM (BEAKER) 7.7 mg/dL 8.4-10.2 L (test code = 697) EGFR (BEAKER) (test 7 mL/min/1.73 ESTIMAT ED GFR IS code = 1092) sq m NOT ACCURATE CREATININE CLEARANCE IN PREDICTING GLOMERULAR FILTRATION RATE . ESTIMATED GFR I S NOT APPLICABLE FOR DIALYSIS PATIEN TS. Dimension Warehouse Supervisor ID - PIAYA LWOUND CULTURE + GRAM [id number] 08:12:00 Test Item Value Reference Range Interpretation Comments CULTURE (BEAKER) A 3+ Same org anism has (test code = been isolated f rom 1095) cultures(s) of the same body site and collection date . Repeat identifi cation and susceptibil ity testing perform ed only after consultat ion with the clinic al microbiology laboratory.Refe r to previous cultur e ofEnterococcus faecalis GRAM STAIN <1+ WBCs RESULT (BEAKER) (test code = 1123) GRAM STAIN <1+ gram RESULT (BEAKER) negative rods (test code = 798508) GRAM STAIN 1+ gram positive RESULT (BEAKER) cocci in (test code = clusters 253289) WOUND CULTURE + GRAM [id number] 08:10:00 Test Item Value Reference Interpretation Comments Range CULTURE (BEAKER) PROVIDENCIA A 4+ Providen jonah (test code = 1095) STUARTII stuartii Amikacin (test code = S 1) Ampicillin + R Sulbactam (test code = 6) Aztreonam (test code S = 32) Cefepime (test code = S 51) Cefoxitin (test code S = 68) Ceftazidime (test S code = 27) Ceftriaxone (test S code = 52) Ertapenem (test code S = 38) Gentamicin (test code R = 18) Levofloxacin (test S code = 22) Meropenem (test code S = 34) Nitrofurantoin (test R code = 23) Piperacillin + S Tazobactam (test code = 29) Tetracycline (test R code = 2) Tobramycin (test code R = 25) Trimethoprim + S Sulfamethoxazole (test code = 47) CULTURE (BEAKER) PROVIDENCIA A 4+ Providen jonah (test code = 1095) RETTGERI rettgerio f a second type Amikacin (test code = S 1) Ampicillin + R Sulbactam (test code = 6) Aztreonam (test code S = 32) Cefepime (test code = S 51) Cefoxitin (test code S = 68) Ceftazidime (test S code = 27) Ceftriaxone (test S code = 52) Ertapenem (test code R = 38) Gentamicin (test code S = 18) Levofloxacin (test S code = 22) Meropenem (test code S = 34) Nitrofurantoin (test S code = 23) Piperacillin + S Tazobactam (test code = 29) Tetracycline (test R code = 2) Tobramycin (test code S = 25) Trimethoprim + S Sulfamethoxazole (test code = 47) CULTURE (BEAKER) STAPHYLOCOCCUS A 4+ Staphy lococcus (test code = 1095) AUREUS [...] (test code S = 13) CULTURE (BEAKER) ENTEROCOCCUS A 4+ Enteroco ccus (test code = 1095) FAECALIS faecalis Ampicillin (test code S = 26) Linezolid (test code S = 40) Vancomycin (test code S = 13) GRAM STAIN RESULT 1+ WBCs (BEAKER) (test code = 1123) GRAM STAIN RESULT 1+ gram positive (BEAKER) (test code = cocci in pairs 604791) POCT-GLUCOSE [id number] 07:38:00 Test Item Value Reference Range Interpretation Comments POC-GLUCOSE METER 84 mg/dL 70-110 : TESTED A T [facility] 6720 ([facility]) (test code = [facility], 153) 65164: Dimension Warehouse Supervisor/Techni estefani ID = [id number] for Aminata ieRonald SPIN/CONCENTRATION [id number] 06:17:00 Test Item Value Reference Range Interpretation Comments CONCENTRATION CHARGED ([facility]) (test Done code = 2657) POCT-GLUCOSE [id number] 21:46:00 Test Item Value Reference Range Interpretation Comments POC-GLUCOSE METER 122 mg/dL 70-110 H : TESTED A T [facility] 6720 ([employer]) (test code = [facility], 153) 63478: Dimension Warehouse Supervisor/Techni estefani ID = [id number] for Tavo Garcia POCT-GLUCOSE [id number] 17:39:00 Test Item Value Reference Range Interpretation Comments POC-GLUCOSE METER 114 mg/dL 70-110 H : TESTED A T [facility] 6720 ([employer]) (test code = [facility], 153) 98463: Dimension Warehouse Supervisor/Techni estefani ID = [id number] for GERMAN GONZALEZ NABILVikas POCT-GLUCOSE [id number] 12:25:00 Test Item Value Reference Range Interpretation Comments POC-GLUCOSE METER 93 mg/dL 70-110 : TESTED A T [facility] 6720 (BEAKER) (test code = DASIA Garcia [facility], 1538) 94144: Dimension Warehouse Supervisor/Techni estefani ID = [id number] for JAD MICHAEL POCT-GLUCOSE [id number] 11:36:00 Test Item Value Reference Range Interpretation Comments POC-GLUCOSE METER 95 mg/dL 70-110 : TESTED A T [facility] 6720 (BEAKER) (test code = DASIA Garcia [facility], 1538) 46078: Dimension Warehouse Supervisor/Techni estefani ID = [id number] for JULIO STEWART BLOOD [id number] 06:44:00 Test Item Value Reference Range Interpretation Comments CULTURE A From Aerobic An d (BEAKER) (test Anaerobic Bot tles Same code = 1095) organism has be en isolated from cultures(s) of the same body site and collection date . Repeat identification and susceptibility testing performed only after consultation wi th the clinical microb iology laboratory.Refe r to previous cultur e ofStaphylococcu s aureus GRAM STAIN From aerobic and RESULT (BEAKER) anaerobic (test code = bottles: gram 1123) positive cocci in clusters BLOOD [id number] 06:43:00 Test Item Value Reference Interpretation Comments Range CULTURE (BEAKER) STAPHYLOCOCCUS A From Aero bic And (test code = 1095) AUREUS Anaerobic Bottles Staphylococcus aureus Clindamycin (test S code = 10) Erythromycin (test S code = 4) Linezolid (test code S = 40) Nitrofurantoin (test S code = 23) Oxacillin (test code S = 14) Rifampin (test code = S 43) Tetracycline (test S code = 2) Trimethoprim + S Sulfamethoxazole (test code = 47) Vancomycin (test code S = 13) GRAM STAIN RESULT From aerobic and (BEAKER) (test code = anaerobic bottles: 1123) gram positive cocci in clusters POCT-GLUCOSE [id number] 21:17:00 Test Item Value Reference Range Interpretation Comments POC-GLUCOSE METER 160 mg/dL 70-110 H : TESTED A T [facility] 6720 (BEAKER) (test code = DASIA Garcia [facility], 1538) 84875: Dimension Warehouse Supervisor/Techni estefani ID = [id number] for Co ok, Kathe POCT-GLUCOSE [id number] 12:08:00 Test Item Value Reference Range Interpretation Comments POC-GLUCOSE METER 100 mg/dL 70-110 : TESTED Vikas T [facility] 6720 (BEAKER) (test code = [facility], 1538) 70476: Dimension Warehouse Supervisor/Techni estefani ID = [id number] for JACOB LYLES CBC W/PLT COUNT & AUTO [id number] 08:20:00 Test Item Value Reference Range Interpretation Comments WHITE BLOOD CELL COUNT (BEAKER) 10.3 K/ L 3.5-10.5 (test code = 775) RED BLOOD CELL COUNT (BEAKER) 3.02 M/ L 4.63-6.08 L (test code = 761) HEMOGLOBIN (BEAKER) (test code = 8.1 GM/DL 13.7-17.5 L 410) HEMATOCRIT (BEAKER) (test code = 26.6 % 40.1-51.0 L 411) MEAN CORPUSCULAR VOLUME (BEAKER) 88.1 fL 79.0-92.2 (test code = 753) MEAN CORPUSCULAR HEMOGLOBIN 26.8 pg 25.7-32.2 (BEAKER) (test code = 751) MEAN CORPUSCULAR HEMOGLOBIN CONC 30.5 GM/DL 32.3-36.5 L (BEAKER) (test code = 752) RED CELL DISTRIBUTION WIDTH 15.9 % 11.6-14.4 H (BEAKER) (test code = 412) PLATELET COUNT (BEAKER) (test 315 K/CU MM 150-450 code = 756) MEAN PLATELET VOLUME (BEAKER) 10.5 fL 9.4-12.4 (test code = 754) NUCLEATED RED BLOOD CELLS 0 /100 WBC 0-0 (BEAKER) (test code = 413) (CELLAVISION MANUAL DIFF)2020-09-19 08:20:00 Test Item Value Reference Range Interpretation Comments NEUTROPHILS - REL 53 % (CELLAVISION)(BEAKER) (test code = 2816) LYMPHOCYTES - REL 12 % (CELLAVISION)(BEAKER) (test code = 2817) MONOCYTES - REL 7 % (CELLAVISION)(BEAKER) (test code = 2818) EOSINOPHILS - REL 24 % (CELLAVISION)(BEAKER) (test code = 2819) BASOPHILS - REL 2 % (CELLAVISION)(BEAKER) (test code = 2820) ATYPICAL LYMPHOCYTES - REL 3 % 0-0 H (CELLAVISION)(BEAKER) (test code = 2829) NEUTROPHILS - ABS 5.46 K/ul 1.78-5.38 H (CELLAVISION)(BEAKER) (test code = 2830) LYMPHOCYTES - ABS 1.24 K/ul 1.32-3.57 L (CELLAVISION)(BEAKER) (test code = 2831) MONOCYTES - ABS 0.72 K/uL 0.30-0.82 (CELLAVISION)(BEAKER) (test code = 2832) EOSINOPHILS - ABS 2.47 K/uL 0.04-0.54 H (CELLAVISION)(BEAKER) (test code = 2834) BASOPHILS - ABS 0.21 K/uL 0.01-0.08 H (CELLAVISION)(BEAKER) (test code = 2835) ATYPICAL LYMPHOCYTES - ABS 0.31 K/uL 0.00-0.00 H (CELLAVISION)(BEAKER) (test code = 2858) TOTAL COUNTED (BEAKER) (test code = 100 1351) SMUDGE CELLS (BEAKER) (test code = Present 1371) GIANT PLATELETS (BEAKER) (test code Present = 313) POIKILOCYTES (BEAKER) (test code = 1+ few 966) ARTIFACT (CELLAVISION)(BEAKER) Present (test code = 3432) PLATELET CONCENTRATION Adequate (CELLAVISION)(BEAKER) (test code = 3438) Dimension Warehouse Supervisor ID - Lazara Bryant comments: Slide comments:POCT-GLUCOSE METER 2020-09-19 07:56:00 Test Item Value Reference Range Interpretation Comments POC-GLUCOSE METER 109 mg/dL 70-110 : TESTED A T [facility] 6720 (BEAKER) (test code = [facility], 1538) 29398: Dimension Warehouse Supervisor/Techni estefani ID = [id number] for SA DE LEON JACOB BASIC METABOLIC [id number] 06:28:00 Test Item Value Reference Range Interpretation Comments SODIUM (BEAKER) 133 meq/L 136-145 L (test code = 381) POTASSIUM (BEAKER) 4.6 meq/L 3.5-5.1 (test code = 379) CHLORIDE (BEAKER) 95 meq/L 98-107 L (test code = 382) CO2 (BEAKER) (test 25 meq/L 22-29 code = 355) BLOOD UREA NITROGEN 55 mg/dL 7-21 H (BEAKER) (test code = 354) CREATININE (BEAKER) 8.34 mg/dL 0.57-1.25 H (test code = 358) GLUCOSE RANDOM 104 mg/dL 70-105 (BEAKER) (test code = 652) CALCIUM (BEAKER) 7.7 mg/dL 8.4-10.2 L (test code = 697) EGFR (BEAKER) (test 7 mL/min/1.73 ESTIMAT ED GFR IS code = 1092) sq m NOT ACCURATE CREATININE CLEARANCE IN PREDICTING GLOMERULAR FILTRATION RATE . ESTIMATED GFR I S NOT APPLICABLE FOR DIALYSIS PATIEN TS. Dimension Warehouse Supervisor ID - PIZAYRA [id number] 06:27:00 Test Item Value Reference Range Interpretation Comments MAGNESIUM (BEAKER) (test code = 3.0 mg/dL 1.6-2.6 H 627) Dimension Warehouse Supervisor ID - GARYZAYRA [id number] 06:27:00 Test Item Value Reference Range Interpretation Comments PHOSPHORUS (BEAKER) (test code = 5.4 mg/dL 2.3-4.7 H 604) Dimension Warehouse Supervisor ID - DANITZA LPOCT-GLUCOSE [id number] 21:24:00 Test Item Value Reference Range Interpretation Comments POC-GLUCOSE METER 202 mg/dL 70-110 H : TESTED A T [facility] 6720 (BEAKER) (test code = [facility] [place], 1538) 85390: Dimension Warehouse Supervisor/Techni estefani ID = [id number] for SJ HERBERT SARS-COV2/RT-PCR ([facility])2020-09-18 18:45:00 Test Item Value Reference Range Interpretation Comments SARS-COV2/RT-PCR (test Negative Not Detected, Negative, code = 5473296) See external report for linked test SARS-COV-2 PERFORMING LAB [facility] KEELY (test code = 1196981) Negative result for this test determines that [...] 564(g) of the Act.Fact Sheet for Healthcare Providers:https://www.Lovejuice.[employer]zingo/sites/default/files/product/documents/Fact_Shee v_UN_Pgvipitqd_Uadq_WRKH-LvZ-0.pdfFact Sheet for Healthcare Patients:https://www.[employer].com/sites/default/files/product/ documents/Iyte_Ikhqz_Uolptkuh_Qbwa_ZLZN-PcT-2.pdfPerforming Laboratory:[facility], [place] [address]OSOC-OEPRYHM METER 2020-09-18 17:18:00 Test Item Value Reference Range Interpretation Comments POC-GLUCOSE METER 101 mg/dL 70-110 : TESTED Vikas Tai [facility] 6720 (NOE) (test code = [facility], 1538) 79883: Dimension Warehouse Supervisor/Techni estefani ID = [id number] for FA ITH, GUNNER POCT-GLUCOSE [id number] 12:20:00 Test Item Value Reference Range Interpretation Comments POC-GLUCOSE METER 117 mg/dL 70-110 H : TESTED A T [facility] 6720 (BEAKER) (test code = [facility], 1538) 50592: Dimension Warehouse Supervisor/Techni estefani ID = [id number] for GUNNER PANDYA BASIC METABOLIC [id number] 08:24:00 Test Item Value Reference Range Interpretation Comments SODIUM (BEAKER) 136 meq/L 136-145 (test code = 381) POTASSIUM (BEAKER) 4.4 meq/L 3.5-5.1 Specimen slightly (test code = 379) hemolyzed CHLORIDE (BEAKER) 95 meq/L 98-107 L (test code = 382) CO2 (BEAKER) (test 25 meq/L 22-29 code = 355) BLOOD UREA NITROGEN 40 mg/dL 7-21 H (BEAKER) (test code = 354) CREATININE (BEAKER) 6.35 mg/dL 0.57-1.25 H Specimen slightly (test code = 358) hemolyzed GLUCOSE RANDOM 118 mg/dL 70-105 H (BEAKER) (test code = 652) CALCIUM (BEAKER) 8.0 mg/dL 8.4-10.2 L (test code = 697) EGFR (BEAKER) (test 9 mL/min/1.73 ESTIMAT ED GFR IS code = 1092) sq m NOT ACCURATE CREATININE CLEARANCE IN PREDICTING GLOMERULAR FILTRATION RATE . ESTIMATED GFR I S NOT APPLICABLE FOR DIALYSIS PATIEN TS. Dimension Warehouse Supervisor ID - DANITZA LOperator ID - ADMINPOCT-GLUCOSE [id number] 08:19:00 Test Item Value Reference Range Interpretation Comments POC-GLUCOSE METER 103 mg/dL 70-110 : TESTED A T [facility] 6720 (BEAKER) (test code = [facility], 1538) 20351: Dimension Warehouse Supervisor/Techni estefani ID = [id number] for GUNNER PANDYA [id number] 07:33:00 Test Item Value Reference Range Interpretation Comments MAGNESIUM (BEAKER) 2.9 mg/dL 1.6-2.6 H Specimen slightly (test code = 627) hemolyzed Dimension Warehouse Supervisor ID - DANITZA [id number] 07:33:00 Test Item Value Reference Range Interpretation Comments PHOSPHORUS (BEAKER) 3.6 mg/dL 2.3-4.7 Specimen slightly (test code = 604) hemolyzed Dimension Warehouse Supervisor SAVANNA - DANITZA LCBC W/PLT COUNT & AUTO [id number] 04:53:00 Test Item Value Reference Range Interpretation Comments WHITE BLOOD CELL COUNT (BEAKER) 11.3 K/ L 3.5-10.5 H (test code = 775) RED BLOOD CELL COUNT (BEAKER) 3.01 M/ L 4.63-6.08 L (test code = 761) HEMOGLOBIN (BEAKER) (test code = 8.0 GM/DL 13.7-17.5 L 410) HEMATOCRIT (BEAKER) (test code = 26.2 % 40.1-51.0 L 411) MEAN CORPUSCULAR VOLUME (BEAKER) 87.0 fL 79.0-92.2 (test code = 753) MEAN [...] (test code = 431) EOSINOPHILS RELATIVE PERCENT 18 % (BEAKER) (test code = 432) BASOPHILS RELATIVE PERCENT 1 % (BEAKER) (test code = 437) NEUTROPHILS ABSOLUTE COUNT 7.28 K/ L 1.78-5.38 H (BEAKER) (test code = 670) LYMPHOCYTES ABSOLUTE COUNT 1.09 K/ L 1.32-3.57 L (BEAKER) (test code = 414) MONOCYTES ABSOLUTE COUNT (BEAKER) 0.81 K/ L 0.30-0.82 (test code = 415) EOSINOPHILS ABSOLUTE COUNT 1.98 K/ L 0.04-0.54 H (BEAKER) (test code = 416) BASOPHILS ABSOLUTE COUNT (BEAKER) 0.11 K/ L 0.01-0.08 H (test code = 417) IMMATURE GRANULOCYTES-RELATIVE 1 % 0-1 PERCENT (BEAKER) (test code = 2801) POCT-GLUCOSE [id number] 21:15:00 Test Item Value Reference Range Interpretation Comments POC-GLUCOSE METER 115 mg/dL 70-110 H : TESTED A T [facility] 6720 (BEAKER) (test code = [facility], 1538) 54466: Dimension Warehouse Supervisor/Techni estefani ID = [id number] for SJ HERBERT BLOOD CULTURE IDENTIFICATION [id number] 21:10:00 Test Item Value Reference Interpretation Comments Range LISTERIA MONOCYTOGENES Not Not detected (test code = 20151208) detected STAPHYLOCOCCUS (test Detected Not detected A code = 20160210) STAPHYLOCOCCUS AUREUS Detected Not detected A Methic illin-susceptible (test code = 20160211) S. aur eus (MSSA)First-francesco e therapy: Cefazolin or Ox acillin (Oxacillin pref erred if DIE CUTTING MACHINE OPERATOR involvement ) ID CONSULTATION REQUIREDStaphyl ococcus aureus DETECTED MecA NOT DETECTED Refere nce Range: Not Detected STREPTOCOCCUS (test Not Not detected code = 20160212) detected STREPTOCOCCUS Not Not detected AGALACTIAE (GROUP B) detected (test code = 7055229) STREPTOCOCCUS Not Not detected PNEUMONIAE (test code detected = 3234560) STREPTOCOCCUS PYOGENES Not Not detected (GROUP A) (test code = detected 3352031) ACINETOBACTER Not Not detected BAUMANNII (test code = detected 1386448) HAEMOPHILUS INFLUENZAE Not Not detected (test code = 9138033) detected NEISSERIA MENINGITIDIS Not Not detected (test code = 4720872) detected ENTEROBACTERIACEAE Not Not detected (test code = 9050921) detected ENTEROBACTER CLOACOE Not Not detected COMPLEX (test code = detected 9931981) KLEBSIELLA OXYTOCA Not Not detected (test code = 2504135) detected KLEBSIELLA PNEUMONIAE Not Not detected (test code = 0) detected PROTEUS (test code = Not Not detected 6753118) detected SERRATIA MARCESCENS Not Not detected (test code = 9182307) detected CAMI ALBICANS (test Not Not detected code = 7659563) detected CAMI GLABRATA (test Not Not detected code = 7689998) detected CAMI KRUSEI (test Not Not detected code = 7774578) detected CAMI PARAPSILOSIS Not Not detected (test code = 3111735) detected CAMI TROPICALIS Not Not detected (test code = 5476401) detected ESCHERICHIA COLI (test Not Not detected code = 0105503) detected METHICILLIN-RESISTANCE Not Not detected Note: Antimicrobial GENE (test code = detected resistance can occur via 0320735) multiple mechan isms. A Not Detected re sult for the [place] antimicrobial r esistance gene assays lance s not indicate antimi crobial susceptibility. Subculturing is required for species identification and susceptibility testing of isolates. VANCOMYCIN-RESISTANCE GENE (test code = 7638261) CARBAPENEM-RESISTANCE GENE (test code = 7883778) ENTEROCOCCUS-BEAKER Not Not detected (test code = 5357639) detected PSEUDOMONAS Not Not detected AERUGINOSA-BEAKER detected (test code = 4930152) Other bacteria and resistance markers not targeted by this PCR panel cannot be excluded; therefore clinical correlation and follow up of serology, culture results, and other molecular studies is required. The results are not intended to be used as the sole means for clinical diagnosis or patient management decisions. This sample was tested at the [facility] using the [employer] Blood Culture ID Panel. It is FDA cleared and has been verified and approved by the [facility] for clinical use. This laboratory is CLIA-certified and College ofAmerican Pathologists (CAP)-accredited to perform high complexity testing.HEPATITIS B SURFACE [id number] 18:09:00 Test Item Value Reference Range Interpretation Comments HEPATITIS B SURFACE ANTIGEN (2) Nonreactive Nonreactive (BEAKER) (test code = 2585) Specimen is considered negative for HBsAg.POCT-GLUCOSE [id number] 17:13:00 Test Item Value Reference Range Interpretation Comments POC-GLUCOSE METER 127 mg/dL 70-110 H : TESTED A T [facility] 6720 (BEAKER) (test code = [employer] [facility], 1538) 23760: Dimension Warehouse Supervisor/Techni estefani ID = [id number] for GUNNER PANDYA POCT-GLUCOSE [id number] 12:12:00 Test Item Value Reference Range Interpretation Comments POC-GLUCOSE METER 99 mg/dL 70-110 : TESTED A T [facility] 6720 (BEAKER) (test code = [employer] [facility], 1538) 72463: Dimension Warehouse Supervisor/Techni estefani ID = [id number] for GUNNER MUHAMMAD CBC W/PLT COUNT & AUTO [id number] 08:34:00 Test Item Value Reference Range Interpretation Comments WHITE BLOOD CELL COUNT (BEAKER) 14.1 K/ L 3.5-10.5 H (test code = 775) RED BLOOD CELL COUNT (BEAKER) 2.82 M/ L 4.63-6.08 L (test code = 761) HEMOGLOBIN (BEAKER) (test code = 7.6 GM/DL 13.7-17.5 L 410) HEMATOCRIT (BEAKER) (test code = 24.7 % 40.1-51.0 L 411) MEAN CORPUSCULAR VOLUME (BEAKER) 87.6 fL 79.0-92.2 (test code = 753) MEAN CORPUSCULAR HEMOGLOBIN 27.0 pg 25.7-32.2 (BEAKER) (test code = 751) MEAN CORPUSCULAR HEMOGLOBIN CONC 30.8 GM/DL 32.3-36.5 L (BEAKER) (test code = 752) RED CELL DISTRIBUTION WIDTH 16.0 % 11.6-14.4 H (BEAKER) (test code = 412) PLATELET COUNT (BEAKER) (test 274 K/CU MM 150-450 code = 756) MEAN PLATELET VOLUME (BEAKER) 10.4 fL 9.4-12.4 (test code = 754) NUCLEATED RED BLOOD CELLS 0 /100 WBC 0-0 (BEAKER) (test code = 413) (CELLAVISION MANUAL DIFF)2020-09-17 08:34:00 Test Item Value Reference Range Interpretation Comments NEUTROPHILS - REL 56 % (CELLAVISION)(BEAKER) (test code = 2816) LYMPHOCYTES - REL 7 % (CELLAVISION)(BEAKER) (test code = 2817) MONOCYTES - REL 6 % (CELLAVISION)(BEAKER) (test code = 2818) EOSINOPHILS - REL 30 % (CELLAVISION)(BEAKER) (test code = 2819) ATYPICAL LYMPHOCYTES - REL 2 % 0-0 H (CELLAVISION)(BEAKER) (test code = 2829) NEUTROPHILS - ABS 7.90 K/ul 1.78-5.38 H (CELLAVISION)(BEAKER) (test code = 2830) LYMPHOCYTES - ABS 0.99 K/ul 1.32-3.57 L (CELLAVISION)(BEAKER) (test code = 2831) MONOCYTES - ABS 0.85 K/uL 0.30-0.82 H (CELLAVISION)(BEAKER) (test code = 2832) EOSINOPHILS - ABS 4.23 K/uL 0.04-0.54 H (CELLAVISION)(BEAKER) (test code = 2834) ATYPICAL LYMPHOCYTES - ABS 0.28 K/uL 0.00-0.00 H (CELLAVISION)(BEAKER) (test code = 2858) TOTAL COUNTED (BEAKER) (test code = 100 1351) SMUDGE CELLS (BEAKER) (test code = Present 1371) GIANT PLATELETS (BEAKER) (test code Present = 313) ANISOCYTOSIS (BEAKER) (test code = 1+ few 961) MICROCYTES (BEAKER) (test code = 1+ few 965) POIKILOCYTES (BEAKER) (test code = 1+ few 966) OVALOCYTES (BEAKER) (test code = 1+ few 477) PLATELET CONCENTRATION Adequate (CELLAVISION)(BEAKER) (test code = 3438) [employer] Supervisor ID - Lazara Bryant comments: Slide comments:[id number] 05:34:00 Test Item Value Reference Range Interpretation Comments MAGNESIUM (BEAKER) 2.8 mg/dL 1.6-2.6 H Specimen slightly (test code = 627) hemolyzed [employer] Supervisor ID - JAQUELINE [id number] 05:34:00 Test Item Value Reference Range Interpretation Comments PHOSPHORUS (BEAKER) 4.0 mg/dL 2.3-4.7 Specimen slightly (test code = 604) hemolyzed [employer] Supervisor ID - JAQUELINE MBASIC METABOLIC [id number] 05:34:00 Test Item Value Reference Range Interpretation Comments SODIUM (BEAKER) 132 meq/L 136-145 L (test code = 381) POTASSIUM (BEAKER) 4.5 meq/L 3.5-5.1 Specimen slightly (test code = 379) hemolyzed CHLORIDE (BEAKER) 97 meq/L 98-107 L (test code = 382) CO2 (BEAKER) (test 20 meq/L 22-29 L code = 355) BLOOD UREA NITROGEN 69 mg/dL 7-21 H (BEAKER) (test code = 354) CREATININE (BEAKER) 8.32 mg/dL 0.57-1.25 H Specimen slightly (test code = 358) hemolyzed GLUCOSE RANDOM 105 mg/dL 70-105 (BEAKER) (test code = 652) CALCIUM (BEAKER) 7.3 mg/dL 8.4-10.2 L (test code = 697) EGFR (BEAKER) (test 7 mL/min/1.73 ESTIMAT ED GFR IS code = 1092) sq m NOT ACCURATE CREATININE CLEARANCE IN PREDICTING GLOMERULAR FILTRATION RATE . ESTIMATED GFR I S NOT APPLICABLE FOR DIALYSIS PATIEN TS. 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 The residual metatarsals are shortened compared with the previous exam. There is an overlying skin defect. The margins are irregular. There seems to be a lucency in the soft tissues of th e heel. A heel ulcer is not ruled out. This requires clinical correlation. There is extensive soft tissue swelling of the stump. Bones are osteopenic. There appears to be at least one surgical staple on the sole lower aspect of the heel. There appears to be a wound VAC in place. IMPRESSION: Status post extensive right foot surgery with extensive soft tissue swelling and skin defect(s). Osteomyelitis is not ruled out. Signed: Moi Feldman MDReport Verified Date/Time: 09/16/2020 20:44:14 Reading Location: [address] Consult Reading Room (CELLAVISION MANUAL DIFF)2020-09-16 20:24:00 Test Item Value Reference Range Interpretation Comments NEUTROPHILS - REL 56 % (CELLAVISION)(BEAKER) (test code = 2816) LYMPHOCYTES - REL 7 % (CELLAVISION)(BEAKER) (test code = 2817) MONOCYTES - REL 7 % (CELLAVISION)(BEAKER) (test code = 2818) EOSINOPHILS - REL 23 % (CELLAVISION)(BEAKER) (test code = 2819) BASOPHILS - REL 3 % (CELLAVISION)(BEAKER) (test code = 2820) BANDS - REL (CELLAVISION)(BEAKER) 1 % 0-10 (test code = 2826) ATYPICAL LYMPHOCYTES - REL 2 % 0-0 H (CELLAVISION)(BEAKER) (test code = 2829) NEUTROPHILS - ABS 7.78 K/ul 1.78-5.38 H (CELLAVISION)(BEAKER) (test code = 2830) LYMPHOCYTES - ABS 0.97 K/ul 1.32-3.57 L (CELLAVISION)(BEAKER) (test code = 2831) MONOCYTES - ABS 0.97 K/uL 0.30-0.82 H (CELLAVISION)(BEAKER) (test code = 2832) EOSINOPHILS - ABS 3.20 K/uL 0.04-0.54 H (CELLAVISION)(BEAKER) (test code = 2834) BASOPHILS - ABS 0.42 K/uL 0.01-0.08 H (CELLAVISION)(BEAKER) (test code = 2835) BANDS - ABS (CELLAVISION)(BEAKER) 0.14 K/uL 0.00-0.80 (test code = 9850) ATYPICAL LYMPHOCYTES - ABS 0.28 K/uL 0.00-0.00 H (CELLAVISION)(BEAKER) (test code = 7206) TOTAL COUNTED (BEAKER) (test code = 100 1351) PLT MORPHOLOGY (BEAKER) (test code Normal = 486) HYPERSEGMENTATION Present (CELLAVISION)(BEAKER) (test code = 3445) POIKILOCYTES (BEAKER) (test code = 1+ few 966) ELLIPTOCYTES (BEAKER) (test code = 1+ few 962) ARTIFACT (CELLAVISION)(BEAKER) Present (test code = 3432) PLATELET CONCENTRATION Adequate (CELLAVISION)(BEAKER) (test code = 3438) Dimension Warehouse Supervisor ID - Maggie comments: Slide comments:C-REACTIVE PROTEIN 2020-09-16 19:59:00 Test Item Value Reference Range Interpretation Comments C-REACTIVE PROTEIN (BEAKER) (test 10.23 mg/dL 0.00-0.50 H code = 676) Dimension Warehouse Supervisor ID - AUDREYBASIC METABOLIC [id number] 19:59:00 Test Item Value Reference Range Interpretation Comments SODIUM (BEAKER) 136 meq/L 136-145 (test code = 381) POTASSIUM (BEAKER) 4.8 meq/L 3.5-5.1 (test code = 379) CHLORIDE (BEAKER) 97 meq/L 98-107 L (test code = 382) CO2 (BEAKER) (test 21 meq/L 22-29 L code = 355) BLOOD UREA NITROGEN 64 mg/dL 7-21 H (BEAKER) (test code = 354) CREATININE (BEAKER) 7.90 mg/dL 0.57-1.25 H (test code = 358) GLUCOSE RANDOM 164 mg/dL 70-105 H (BEAKER) (test code = 652) CALCIUM (BEAKER) 8.1 mg/dL 8.4-10.2 L (test code = 697) EGFR (BEAKER) (test 7 mL/min/1.73 ESTIMAT ED GFR IS code = 1092) sq m NOT ACCURATE CREATININE CLEARANCE IN PREDICTING GLOMERULAR FILTRATION RATE . ESTIMATED GFR I S NOT APPLICABLE FOR DIALYSIS PATIEN TS. Dimension Warehouse Supervisor ID - [id number] 19:56:00 Test Item Value Reference Range Interpretation Comments D-DIMER QUANTITATIVE (BEAKER) 1.50 MG/L FEU <0.50 H (test code = 671) Intended Use: The D-Dimer Assay can be used to aid in the diagnosis of Deep Vein Thrombosis (DVT) and Pulmonary Embolism Disease (PED).In patients with low pre- test probability, various studies concerning STA Liatest D-dimer test have reported that with a cutoff value of 0.50 MG/L FEU, the Negative Predictive Value (NPV) regarding the exclusion of thrombosis is within 95-100% range. PT/[id number] 19:54:00 Test Item Value Reference Range Interpretation Comments PROTIME (BEAKER) (test 15.2 seconds 11.9-14.2 H code = 759) INR (BEAKER) (test 1.22 See_Comment [Automat ed code = 370) message] The sy stem which generated this result transmitted reference range : <=5.90. The reference range was not used to interpret this result as normal/abnormal . PARTIAL THROMBOPLASTIN 40.8 seconds 22.5-36.0 H TIME (BEAKER) (test code = 760) RECOMMENDED COUMADIN/WARFARIN INR THERAPY RANGESSTANDARD DOSE: 2.0 - 3.0 Includes: PROPHYLAXIS forvenous thrombosis, systemic embolization; TREATMENT for venous thrombosis and/or pulmonary embolus.HIGH RISK: Target INR is 2.5-3.5 for patients with mechanical heart valves.LACTIC ACID, [id number] 19:54:00 Test Item Value Reference Range Interpretation Comments LACTATE BLOOD VENOUS (2) (BEAKER) 1.16 mmol/L 0.50-2.20 (test code = 2872) Dimension Warehouse Supervisor ID - BSCBC W/PLT COUNT & AUTO [id number] 19:45:00 Test Item Value Reference Range Interpretation Comments WHITE BLOOD CELL COUNT (BEAKER) 13.9 K/ L 3.5-10.5 H (test code = 775) RED BLOOD CELL COUNT (BEAKER) 3.31 M/ L 4.63-6.08 L (test code = 761) HEMOGLOBIN (BEAKER) (test code = 8.9 GM/DL 13.7-17.5 L 410) HEMATOCRIT (BEAKER) (test code = 29.1 % 40.1-51.0 L 411) MEAN CORPUSCULAR VOLUME (BEAKER) 87.9 fL 79.0-92.2 (test code = 753) MEAN CORPUSCULAR HEMOGLOBIN 26.9 pg 25.7-32.2 (BEAKER) (test code = 751) MEAN CORPUSCULAR HEMOGLOBIN CONC 30.6 GM/DL 32.3-36.5 L (BEAKER) (test code = 752) RED CELL DISTRIBUTION WIDTH 15.9 % 11.6-14.4 H (BEAKER) (test code = 412) PLATELET COUNT (BEAKER) (test 298 K/CU MM 150-450 code = 756) MEAN PLATELET VOLUME (BEAKER) 10.1 fL 9.4-12.4 (test code = 754) NUCLEATED RED BLOOD CELLS 0 /100 WBC 0-0 (BEAKER) (test code = 413) NEUTROPHILS RELATIVE PERCENT 67 % (BEAKER) (test code = 429) LYMPHOCYTES RELATIVE PERCENT 8 % (BEAKER) (test code = 430) MONOCYTES RELATIVE PERCENT 6 % (BEAKER) (test code = 431) EOSINOPHILS RELATIVE PERCENT 18 % (BEAKER) (test code = 432) BASOPHILS RELATIVE PERCENT 1 % (BEAKER) (test code = 437) NEUTROPHILS ABSOLUTE COUNT 9.25 K/ L 1.78-5.38 H (BEAKER) (test code = 670) LYMPHOCYTES ABSOLUTE COUNT 1.09 K/ L 1.32-3.57 L (BEAKER) (test code = 414) MONOCYTES ABSOLUTE COUNT (BEAKER) 0.84 K/ L 0.30-0.82 H (test code = 415) EOSINOPHILS ABSOLUTE COUNT 2.46 K/ L 0.04-0.54 H (BEAKER) (test code = 416) BASOPHILS ABSOLUTE COUNT (BEAKER) 0.12 K/ L 0.01-0.08 H (test code = 417) IMMATURE GRANULOCYTES-RELATIVE 1 % 0-1 PERCENT (BEAKER) (test code = 2801) AFB CULTURE + SMEAR (NON-SPUTUM)2020-07-14 14:04:00 Test Item Value Reference Range Interpretation Comments CULTURE (BEAKER) (test No acid-fast bacilli code = 1095) isolated in 42 days AFB SMEAR (BEAKER) No acid fast bacilli (test code = 994) seen BASIC METABOLIC [id number] 11:06:00 Test Item Value Reference Range Interpretation [...] S NOT APPLICABLE FOR DIALYSIS PATIEN TS. Dimension Warehouse Supervisor ID - EMERSONCBC (HEMOGRAM ONLY)2020-06-19 06:37:00 Test Item Value Reference [...] WBC 0-0 (BEAKER) (test code = 413) SARS-COV2/RT-PCR ([facility])2020-06-16 13:14:00 Test Item Value Reference Range Interpretation Comments SARS-COV2/RT-PCR (test Negative Not Detected, Negative, code = 6529472) See external report for linked test SARS-COV-2 PERFORMING LAB [facility] KEELY (test code = 5824467) Negative result for this test determines that [...] 564(g) of the Act.Fact Sheet for Healthcare Providers:https://www.Active[employer]idel.com/sites/default/files/product/documents/Fact_Shee o_NR_Eukyudgxl_Zmtf_JPQW-ZtQ-0.pdfFact Sheet for Healthcare Patients:https://www.Lovejuice.com/sites/default/files/product/ documents/Cysf_Zauxe_Ptnuehsl_Sept_XVQZ-KiI-5.pdfPerforming Laboratory:[facility] [place], [place] [id number] 06:05:00 Test Item Value Reference Range Interpretation Comments PHOSPHORUS (BEAKER) (test code = 4.4 mg/dL 2.3-4.7 604) Dimension Warehouse Supervisor ID - JAQUELINE MPOCT-GLUCOSE [id number] 21:46:00 Test Item Value Reference Range Interpretation Comments POC-GLUCOSE METER 124 mg/dL 70-110 H : TESTED A T [facility] 6720 (BEAKER) (test code = [facility], 1538) 19517: Dimension Warehouse Supervisor/Techni estefani ID = [id number] for Zoraida Handley POCT-GLUCOSE [id number] 16:20:00 Test Item Value Reference Range Interpretation Comments POC-GLUCOSE METER 125 mg/dL 70-110 H : TESTED A T [facility] 6720 (BEAKER) (test code = [facility], 1538) 71474: Dimension Warehouse Supervisor/Techni estefani ID = [id number] for Jose rizo, Areiona POCT-GLUCOSE [id number] 14:24:00 Test Item Value Reference Range Interpretation Comments POC-GLUCOSE METER 77 mg/dL 70-110 : TESTED A T [facility] 6720 (BEAKER) (test code = [facility], 1538) 98554: Dimension Warehouse Supervisor/Techni estefani ID = [id number] for Juan Manuel ia, Areiona BASIC METABOLIC [id number] 08:54:00 Test Item Value Reference Range Interpretation [...] S NOT APPLICABLE FOR DIALYSIS PATIEN TS. Dimension Warehouse Supervisor ID - EDASICBC W/PLT COUNT & AUTO [id number] 08:49:00 Test Item Value Reference Range Interpretation [...] PERCENT (BEAKER) (test code = 2801) POCT-GLUCOSE [id number] 07:58:00 Test Item Value Reference Range Interpretation Comments POC-GLUCOSE METER 75 mg/dL 70-110 : TESTED A T [facility] 6720 (BEAKER) (test code = [facility], 153) 40027: Dimension Warehouse Supervisor/Techni estefani ID = [id number] for Will iams, Areiona FUNGUS CULTURE + [id number] 01:12:00 Test Item Value Reference Range Interpretation Comments CULTURE (BEAKER) A <1+ Cami (test code = [facility] 1095) FUNGUS SMEAR No fungi seen (BEAKER) (test code = 1406) POCT-GLUCOSE [id number] 21:05:00 Test Item Value Reference Range Interpretation Comments POC-GLUCOSE METER 113 mg/dL 70-110 H : TESTED A T [facility] 6720 (BEAKER) (test code = [facility], 1538) 30566: Dimension Warehouse Supervisor/Techni estefani ID = [id number] for AN RON BAIRD POCT-GLUCOSE [id number] 17:14:00 Test Item Value Reference Range Interpretation Comments POC-GLUCOSE METER 104 mg/dL 70-110 : TESTED A T [facility] 6720 (BEAKER) (test code = [facility], 1538) 01969: Dimension Warehouse Supervisor/Techni estefani ID = [id number] for LEW VAZQUEZ, NE POCT-GLUCOSE [id number] 11:30:00 Test Item Value Reference Range Interpretation Comments POC-GLUCOSE METER 112 mg/dL 70-110 H : TESTED A T [facility] 6720 (BEAKER) (test code = [facility], 1538) 72951: Dimension Warehouse Supervisor/Techni estefani ID = [id number] for PA GEORGE, [place] POCT-GLUCOSE [id number] 09:11:00 Test Item Value Reference Range Interpretation Comments POC-GLUCOSE METER 128 mg/dL 70-110 H : TESTED A T [facility] 6720 (BEAKER) (test code = [facility], 153) 69680: Dimension Warehouse Supervisor/Techni estefani ID = [id number] for PRINCESS LAURA POCT-GLUCOSE [id number] 21:56:00 Test Item Value Reference Range Interpretation Comments POC-GLUCOSE METER 120 mg/dL 70-110 H : TESTED A T [facility] 6720 (BEAKER) (test code = [facility], 1538) 06067: Dimension Warehouse Supervisor/Techni estefani ID = [id number] for Zoraida Handley POCT-GLUCOSE [id number] 11:53:00 Test Item Value Reference Range Interpretation Comments POC-GLUCOSE METER 102 mg/dL 70-110 : TESTED A T [facility] 6720 (BEAKER) (test code = [facility], 1538) 58935: Dimension Warehouse Supervisor/Techni estefani ID = [id number] for Jose rizo, Areiona POCT-GLUCOSE [id number] 08:16:00 Test Item Value Reference Range Interpretation Comments POC-GLUCOSE METER 85 mg/dL 70-110 : TESTED A T [facility] 6720 (BEAKER) (test code = [facility], 1538) 57943: Dimension Warehouse Supervisor/Techni estefani ID = [id number] for Juan Manuel nicholas, Areiona [id number] 04:45:00 Test Item Value Reference Range Interpretation Comments PHOSPHORUS (BEAKER) (test code = 5.3 mg/dL 2.3-4.7 H 604) Dimension Warehouse Supervisor ID - BSCBC W/PLT COUNT & AUTO [id number] 04:10:00 Test Item Value Reference Range Interpretation [...] PERCENT (BEAKER) (test code = 2801) POCT-GLUCOSE [id number] 21:00:00 Test Item Value Reference Range Interpretation Comments POC-GLUCOSE METER 145 mg/dL 70-110 H : [facility] (test code = [facility], 1538) 47946: Dimension Warehouse Supervisor/Techni estefani ID = [id number] for JOSE REJI RIZO [id number] 17:48:00 Test Item Value Reference Range Interpretation Comments PHOSPHORUS (BEAKER) (test code = 4.9 mg/dL 2.3-4.7 H 604) Dimension Warehouse Supervisor ID - BSPOCT-GLUCOSE [id number] 15:50:00 Test Item Value Reference Range Interpretation Comments POC-GLUCOSE METER 116 mg/dL 70-110 H : [facility] A T [facility] 6720 [facility] (test code = [facility], [facility]8) 96536: Dimension Warehouse Supervisor/Techni estefani ID = [id number] for Jose yanms, Areiona POCT-GLUCOSE [id number] 12:42:00 Test Item Value Reference Range Interpretation Comments POC-GLUCOSE METER 86 mg/dL 70-110 : TESTED A T [facility] 6720 (BEAKER) (test code = [facility], [facility]8) 99574: Dimension Warehouse Supervisor/Techni estefani ID = [id number] for Juan Manuel nicholas, Areiona POCT-GLUCOSE [id number] 08:21:00 Test Item Value Reference Range Interpretation Comments POC-GLUCOSE METER 108 mg/dL 70-110 : TESTED A T [facility] 6720 ([facility] (test code = [facility], [facility]8) 83184: Dimension Warehouse Supervisor/Techni estefani ID = [id number] for Jose rizo, Areiona POCT-GLUCOSE [id number] 22:07:00 Test Item Value Reference Range Interpretation Comments POC-GLUCOSE METER 118 mg/dL 70-110 H : TESTED A T [facility] 6720 ([facility]) (test code = [facility], [facility]8) 13540: Dimension Warehouse Supervisor/Techni estefani ID = [id number] for Zoraida Handley POCT-GLUCOSE [id number] 12:30:00 Test Item Value Reference Range Interpretation Comments POC-GLUCOSE METER 93 mg/dL 70-110 : Notified RN/MD: TESTED (BEAKER) (test code = AT [facility] 67[address] [facility] 1538) [facility], 770 30: Dimension Warehouse Supervisor/Techni estefani ID = [id number] for HADLEY ARGUELLO POCT-GLUCOSE [id number] 07:55:00 Test Item Value Reference Range Interpretation Comments POC-GLUCOSE METER 81 mg/dL 70-110 : Notified RN/MD: TESTED (BEAKER) (test code = [facility] 67[address] [facility] 1538) [facility], 770 30: Dimension Warehouse Supervisor/Techni estefani ID = [id number] for HADLEY ARGUELLO POCT-GLUCOSE [id number] 22:01:00 Test Item Value Reference Range Interpretation Comments POC-GLUCOSE METER 104 mg/dL 70-110 : TESTED A T [facility] 6720 (BEAKER) (test code = [facility], 153) 90387: Dimension Warehouse Supervisor/Techni estefani ID = [id number] for MALGORZATA MORRISON (V)CHRIS POCT-GLUCOSE [id number] 15:55:00 Test Item Value Reference Range Interpretation Comments POC-GLUCOSE METER 95 mg/dL 70-110 : TESTED A T [facility] 6720 (BEAKER) (test code = [facility], 153) 22896: Dimension Warehouse Supervisor/Techni estefani ID = [id number] for David s, Betzy POCT-GLUCOSE [id number] 11:37:00 Test Item Value Reference Range Interpretation Comments POC-GLUCOSE METER 82 mg/dL 70-110 : TESTED A T [facility] 6720 (BEAKER) (test code = [facility], 153) 17723: Dimension Warehouse Supervisor/Techni estefani ID = [id number] for David s, Betzy POCT-GLUCOSE [id number] 07:28:00 Test Item Value Reference Range Interpretation Comments POC-GLUCOSE METER 75 mg/dL 70-110 : TESTED A T [facility] 6720 (BEAKER) (test code = [facility], 153) 84648: Dimension Warehouse Supervisor/Techni estefani ID = [id number] for David s, Betzy POCT-GLUCOSE [id number] 22:59:00 Test Item Value Reference Range Interpretation Comments POC-GLUCOSE METER 104 mg/dL 70-110 : TESTED A T [facility] 6720 (BEAKER) (test code = [facility], 153) 49036: Dimension Warehouse Supervisor/Techni estefani ID = [id number] for ISAC SALINAS TUYET POCT-GLUCOSE [id number] 16:15:00 Test Item Value Reference Range Interpretation Comments POC-GLUCOSE METER 121 mg/dL 70-110 H : TESTED A T [facility] 6720 (BEAKER) (test code = [facility], 1538) 45720: Dimension Warehouse Supervisor/Techni estefani ID = [id number] for Da augustine, Betzy POCT-GLUCOSE [id number] 11:53:00 Test Item Value Reference Range Interpretation Comments POC-GLUCOSE METER 110 mg/dL 70-110 : TESTED A T [facility] 6720 (BEAKER) (test code = [facility], 1538) 91810: Dimension Warehouse Supervisor/Techni estefani ID = [id number] for Da vis, Betzy POCT-GLUCOSE [id number] 07:58:00 Test Item Value Reference Range Interpretation Comments POC-GLUCOSE METER 72 mg/dL 70-110 : TESTED A T [facility] 6720 (BEAKER) (test code = [facility], 1538) 56623: Dimension Warehouse Supervisor/Techni estefani ID = [id number] for Betzy Marie BASIC METABOLIC [id number] 05:59:00 Test Item Value Reference Range Interpretation [...] S NOT APPLICABLE FOR DIALYSIS PATIEN TS. Dimension Warehouse Supervisor ID - EDASICBC W/PLT COUNT & AUTO [id number] 05:30:00 Test Item Value Reference Range Interpretation [...] PERCENT (BEAKER) (test code = 2801) POCT-GLUCOSE [id number] 22:53:00 Test Item Value Reference Range Interpretation Comments POC-GLUCOSE METER 90 mg/dL 70-110 : TESTED A T [facility] 6720 (BEAKER) (test code = [facility], 153) 08782: Dimension Warehouse Supervisor/Techni estefani ID = [id number] for JUAN MANUEL NICHOLAS REJI POCT-GLUCOSE [id number] 15:59:00 Test Item Value Reference Range Interpretation Comments POC-GLUCOSE METER 109 mg/dL 70-110 : TESTED A T [facility] 6720 (BEAKER) (test code = [facility], 153) 09984: Dimension Warehouse Supervisor/Techni estefani ID = [id number] for Da vis, Betzy POCT-GLUCOSE [id number] 21:40:00 Test Item Value Reference Range Interpretation Comments POC-GLUCOSE METER 110 mg/dL 70-110 : TESTED A T [facility] 6720 (BEAKER) (test code = [facility], 153) 39639: Dimension Warehouse Supervisor/Techni estefani ID = [id number] for JOSE RIZO, REJI POCT-GLUCOSE [id number] 16:44:00 Test Item Value Reference Range Interpretation Comments POC-GLUCOSE METER 110 mg/dL 70-110 : TESTED A T [facility] 6720 (BEAKER) (test code [facility], = 1538) 00161: Dimension Warehouse Supervisor/Techni estefani ID = [id number] for WILS ON, SHASTANIE POCT-GLUCOSE [id number] 11:45:00 Test Item Value Reference Range Interpretation Comments POC-GLUCOSE METER 88 mg/dL 70-110 : TESTED A T [facility] 6720 (BEAKER) (test code = [facility], 153) 43568: Dimension Warehouse Supervisor/Techni estefani ID = [id number] for WILS ON, SHASTANIE POCT-GLUCOSE [id number] 08:02:00 Test Item Value Reference Range Interpretation Comments POC-GLUCOSE METER 88 mg/dL 70-110 : TESTED A T [facility] 6720 (BEAKER) (test code = [facility], 153) 73585: Dimension Warehouse Supervisor/Techni estefani ID = [id number] for VICKIE N MARLENI POCT-GLUCOSE [id number] 21:05:00 Test Item Value Reference Range Interpretation Comments POC-GLUCOSE METER 118 mg/dL 70-110 H : TESTED A T [facility] 6720 (BEAKER) (test code = [facility], [facility]) 66999: Dimension Warehouse Supervisor/Techni estefani ID = [id number] for DA MADELIN, BEAU POCT-GLUCOSE [id number] 16:34:00 Test Item Value Reference Range Interpretation Comments POC-GLUCOSE METER 131 mg/dL 70-110 H : TESTED A T [facility] 6720 (BEAKER) (test code = [facility], [facility]) 71216: Dimension Warehouse Supervisor/Techni estefani ID = [id number] for FE LDER, STEVE ANAEROBIC [id number] 11:42:00 Test Item Value Reference Range Interpretation Comments CULTURE (BEAKER) (test No anaerobes isolated code = 1095) POCT-GLUCOSE [id number] 21:38:00 Test Item Value Reference Range Interpretation Comments POC-GLUCOSE METER 111 mg/dL 70-110 H : TESTED A T [facility] 6720 (BEAKER) (test code = [facility], [facility]) 30802: Dimension Warehouse Supervisor/Techni estefani ID = [id number] for DA MADELIN, BEAU POCT-GLUCOSE [id number] 17:39:00 Test Item Value Reference Range Interpretation Comments POC-GLUCOSE METER 106 mg/dL 70-110 : TESTED A T [facility] 6720 (BEAKER) (test code = [facility], 153) 39676: Dimension Warehouse Supervisor/Techni estefani ID = [id number] for PA RKER, NE POCT-GLUCOSE [id number] 11:36:00 Test Item Value Reference Range Interpretation Comments POC-GLUCOSE METER 109 mg/dL 70-110 : TESTED A T [facility] 6720 (BEAKER) (test code = [facility], 153) 19548: Dimension Warehouse Supervisor/Techni estefani ID = [id number] for PA RKER, NE POCT-GLUCOSE [id number] 08:59:00 Test Item Value Reference Range Interpretation Comments POC-GLUCOSE METER 75 mg/dL 70-110 : TESTED A T [facility] 6720 (BEAKER) (test code = [facility], [facility]) 85951: Dimension Warehouse Supervisor/Techni estefani ID = [id number] for PARK ER, NE POCT-GLUCOSE [id number] 21:58:00 Test Item Value Reference Range Interpretation Comments POC-GLUCOSE METER 103 mg/dL 70-110 : TESTED A T [facility] 6720 (BEAKER) (test code = [facility], 1538) 93157: Dimension Warehouse Supervisor/Techni estefani ID = [id number] for Zoraida Handley POCT-GLUCOSE [id number] 17:38:00 Test Item Value Reference Range Interpretation Comments POC-GLUCOSE METER 107 mg/dL 70-110 : TESTED A T [facility] 6720 (BEAKER) (test code = [facility], 1538) 97391: Dimension Warehouse Supervisor/Techni estefani ID = [id number] for PRINCESS LAURA POCT-GLUCOSE [id number] 12:56:00 Test Item Value Reference Range Interpretation Comments POC-GLUCOSE METER 125 mg/dL 70-110 H : TESTED A T [facility] 6720 (BEAKER) (test code = [facility], 1538) 42091: Dimension Warehouse Supervisor/Techni estefani ID = [id number] for PRINCESS LAURA SARS-COV2/RT-PCR ([facility])2020-06-02 09:39:00 Test Item Value Reference Range Interpretation Comments SARS-COV2/RT-PCR (test Negative Not Detected, Negative, code = 5919100) See external report for linked test SARS-COV-2 PERFORMING LAB [facility] (test code = 1259519) Negative result for this test determines that [...] 564(g) of the Act.Fact Sheet for Healthcare Providers:https://www.[employer]/sites/default/files/product/documents/Fact_Shee l_UP_Sdoxrowtk_Ewzn_PSCP-VyH-0.pdfFact Sheet for Healthcare Patients:https://www.[employer]/sites/default/files/product/ documents/Qowr_Mgbqy_Ysehfies_Xcfw_SKJZ-MfH-3.pdfPerforming Laboratory:[facility], [place] [address]HBLI-VVWXWID METER 2020-06-02 08:48:00 Test Item Value Reference Range Interpretation Comments POC-GLUCOSE METER 124 mg/dL 70-110 H : TESTED Vikas T [facility] 6720 (BEAKER) (test code = DASIA Garcia [facility], 1538) [id number]: [employer] Ware[employer] Supervisor/Techni estefani ID = [id number] for LEW VAZQUEZ NE BASIC METABOLIC [id number] 08:14:00 Test Item Value Reference Range Interpretation [...] S NOT APPLICABLE FOR DIALYSIS PATIEN TS. [employer] Supervisor ID - TIAGO [id number] 08:10:00 Test Item Value Reference Range Interpretation Comments PHOSPHORUS (BEAKER) (test code = 7.0 mg/dL 2.3-4.7 H 604) [employer] Supervisor ID - TIAGO CVITAMIN B12 AND [id number] 07:23:00 Test Item Value Reference Range Interpretation Comments VITAMIN B12 (BEAKER) 441 pg/mL 213-816 (test code = 774) FOLATE (BEAKER) 5.90 ng/mL See_Comment L [Automated message] (test code = 362) The system which generated this result transmitted ref erence range: >=7.00. The reference range was not used to interpr et this result as normal/abnormal . [employer]ension Warehouse Supervisor ID - JAQUELINE MAURO, TIBC, % SAT. (WITHOUT FERRITIN)2020-06-02 06:48:00 Test Item Value Reference Range Interpretation Comments IRON (BEAKER) (test code = 547) 29.0 ug/dL 40.0-160.0 L TOTAL IRON BINDING CAPACITY 166 ug/dL 250-450 L (BEAKER) (test code = 769) IRON % SATURATION (2) (BEAKER) 17 % 20-55 L (test code = 2590) [employer]ension Warehouse Supervisor ID - JAQUELINE MCBC (HEMOGRAM ONLY)2020-06-02 06:37:00 [...] 0-0 (BEAKER) (test code = 413) POCT-GLUCOSE [id number] 21:28:00 Test Item Value Reference Range Interpretation Comments POC-GLUCOSE METER 117 mg/dL 70-110 H : TESTED A T [facility] 6720 (BEAKER) (test code = [facility], 1538) 79822: Dimension Warehouse Supervisor/Techni estefani ID = [id number] for REJI MONTOYA POCT-GLUCOSE [id number] 17:07:00 Test Item Value Reference Range Interpretation Comments POC-GLUCOSE METER 107 mg/dL 70-110 : TESTED A T [facility] 6720 (BEAKER) (test code = [facility], 1538) 29265: Dimension Warehouse Supervisor/Techni estefani ID = [id number] for Kingsley Haley [id number] 16:04:00 Test Item Value Reference Range Interpretation Comments FERRITIN (BEAKER) (test code = 322.82 ng/mL 5.00-275.00 H 361) [employer]ension Warehouse Supervisor ID - DBSURGICALLY OBTAINED CULTURE + GRAM [id number] 12:53:00 Test Item Value Reference Interpretation Comments [...] gram negative (BEAKER) (test code = rods 838840) GRAM STAIN RESULT <1+ yeast (BEAKER) (test code = 168476) POCT-GLUCOSE [id number] 11:55:00 Test Item Value Reference Range Interpretation Comments POC-GLUCOSE METER 125 mg/dL 70-110 H : TESTED A T [facility] 6720 (BEAKER) (test code = [facility], 153) 16249: Dimension Warehouse Supervisor/Techni estefani ID = [id number] for Kingsley Haley POCT-GLUCOSE [id number] 08:56:00 Test Item Value Reference Range Interpretation Comments POC-GLUCOSE METER 85 mg/dL 70-110 : TESTED A T [facility] 6720 (BEAKER) (test code = [facility], 153) 18937: Dimension Warehouse Supervisor/Techni estefani ID = [id number] for Kingsley Lagunas POCT-GLUCOSE [id number] 22:47:00 Test Item Value Reference Range Interpretation Comments POC-GLUCOSE METER 119 mg/dL 70-110 H : TESTED A T [facility] 6720 (BEAKER) (test code = [facility], 153) 61874: Dimension Warehouse Supervisor/Techni estefani ID = [id number] for JOSE DOWDYUREJI POCT-GLUCOSE [id number] 16:45:00 Test Item Value Reference Range Interpretation Comments POC-GLUCOSE METER 123 mg/dL 70-110 H : TESTED A T [facility] 6720 (BEAKER) (test code = [facility], 153) 48271: Dim[employer] Warehouse Supervisor/Techni estefani ID = [id number] for PRINCESS LAURA POCT-GLUCOSE [id number] 11:29:00 Test Item Value Reference Range Interpretation Comments POC-GLUCOSE METER 129 mg/dL 70-110 H : TESTED A T [facility] 6720 (BEAKER) (test code = DASIA Garcia [place], 1538) 05869: Dimension Warehouse Supervisor/Techni estefani ID = [id number] for LEW VAZQUEZ [facility] POCT-GLUCOSE [id number] 08:48:00 Test Item Value Reference Range Interpretation Comments POC-GLUCOSE METER 98 mg/dL 70-110 : TESTED A T [facility] (BEAKER) (test code = [facility], 1538) 25650: Dimension Warehouse Supervisor/Techni estefani ID = [id number] for FAITH WARD [facility] BASIC METABOLIC [id number] 06:32:00 Test Item Value Reference Range Interpretation [...] S NOT APPLICABLE FOR DIALYSIS PATIEN TS. Dimension Warehouse Supervisor ID - ADMINCBC (HEMOGRAM ONLY)2020-05-31 05:42:00 Test [...] 0-0 (BEAKER) (test code = 413) POCT-GLUCOSE [id number] 21:12:00 Test Item Value Reference Range Interpretation Comments POC-GLUCOSE METER 169 mg/dL 70-110 H : TESTED A T [facility] 6720 (BEAKER) (test code = [facility], 153) 64253: Dimension Warehouse Supervisor/Techni estefani ID = [id number] for Zoraida Handley POCT-GLUCOSE [id number] 16:05:00 Test Item Value Reference Range Interpretation Comments POC-GLUCOSE METER 158 mg/dL 70-110 H : TESTED A T [facility]20 (BEAKER) (test code = [facility], 153) 67470: Dimension Warehouse Supervisor/Techni estefani ID = [id number] for MELODY DOS SANTOS POCT-GLUCOSE [id number] 12:40:00 Test Item Value Reference Range Interpretation Comments POC-GLUCOSE METER 113 mg/dL 70-110 H : TESTED A T [facility]20 (BEAKER) (test code = [facility], 153) 79174: Dimension Warehouse Supervisor/Techni estefani ID = [id number] for MELODY DOS SANTOS SPIN/CONCENTRATION [id number] 09:31:00 Test Item Value Reference Range Interpretation Comments CONCENTRATION CHARGED (BEAKER) (test Done code = 2657) POCT-GLUCOSE [id number] 08:07:00 Test Item Value Reference Range Interpretation Comments POC-GLUCOSE METER 116 mg/dL 70-110 H : TESTED A T [facility] 6720 (BEAKER) (test code = [facility], 153) 78468: Dimension Warehouse Supervisor/Techni estefani ID = [id number] for MELODY DOS SANTOS POCT-GLUCOSE [id number] 21:03:00 Test Item Value Reference Range Interpretation Comments POC-GLUCOSE METER 194 mg/dL 70-110 H : TESTED A T [facility] 6720 (BEAKER) (test code = [facility], 153) 57987: Dimension Warehouse Supervisor/Techni estefani ID = [id number] for REJI MONTOYA HEPATITIS B SURFACE [id number] 19:08:00 Test Item Value Reference Range Interpretation Comments HEPATITIS B SURFACE ANTIGEN (2) Nonreactive Nonreactive (BEAKER) (test code = 2585) Specimen is considered negative for HBsAg.POCT-GLUCOSE [id number] 17:02:00 Test Item Value Reference Range Interpretation Comments POC-GLUCOSE METER 142 mg/dL 70-110 H : TESTED A T [facility] 6720 (BEAKER) (test code = [facility], 153) 37333: Dimension Warehouse Supervisor/Techni estefani ID = [id number] for EDSON MEJIA GLUCOSE-STAT [id number] 07:13:00 Test Item Value Reference Range Interpretation Comments GLUCOSE RANDOM (BEAKER) (test code 122 mg/dL 70-110 H = 652) HGB/HCT (H&H) - STAT [id number] 07:13:00 Test Item Value Reference Range Interpretation Comments HEMOGLOBIN (BEAKER) (test code = 10.0 GM/DL 13.0-16.8 L 410) HEMATOCRIT (BEAKER) (test code = 29.0 % 40.0-50.0 L 411) POTASSIUM-STAT [id number] 07:11:00 Test Item Value Reference Range Interpretation Comments POTASSIUM (BEAKER) (test code = 4.6 meq/L 3.6-5.5 379) POCT-GLUCOSE [id number] 06:01:00 Test Item Value Reference Range Interpretation Comments POC-GLUCOSE METER 118 mg/dL 70-110 H : TESTED A T [facility] 6720 (BEAKER) (test code [facility], = 1538) 38062: Dimension Warehouse Supervisor/Techni estefani ID = [id number] for JORD AN, LACRYSTAL SARS-COV2/RT-PCR ([facility])2020-05-28 03:28:00 Test Item Value Reference Range Interpretation Comments SARS-COV2/RT-PCR (test Negative Not Detected, Negative, code = 3976979) See external report for linked test SARS-COV-2 PERFORMING LAB [facility] KEELY (test code = 8650193) Negative result for this test determines that [...] the Giles SARS-CoV-2 assay.Fact Sheet for Healthcare Providers:https://www.[employer]agen.giles/ari/ RN_SFXK-LhY-5_ARF_Ocoi_Ubuxh_53-454016.pdfFact Sheet for Healthcare Patients:https://www.[employer]agen.Agendia radha/ari/NB_LSNL-LbB-1_Bsquzdo_Sezb_Cdpri_VL_90-269105Y0.pdfPerforming Laboratory:[facility].[place], [place] [address]DNO AND CREATININE [id number] 14:16:00 Test Item Value Reference Range Interpretation Comments BLOOD UREA NITROGEN 60 mg/dL 7-21 H (BEAKER) (test code = 354) CREATININE (BEAKER) 7.43 mg/dL 0.57-1.25 H (test code = 358) BUN/CREAT RATIO 8 For a normal (BEAKER) (test code individu al on a = 3647015378) normal diet, t he reference inter anthony for the mass ra chuck ranges between 12:1 and 20:1 (BUN i n mg/dL/creatinin e in mg/dL) EGFR (BEAKER) (test 8 mL/min/1.73 ESTIMAT ED GFR IS code = 1092) sq m NOT ACCURATE CREATININE CLEARANCE IN PREDICTING GLOMERULAR FILTRATION RATE . ESTIMATED GFR I S NOT APPLICABLE FOR DIALYSIS PATIEN TS. Dimension Warehouse Supervisor ID - ANTONY [id number] 14:15:00 Test Item Value Reference Range Interpretation Comments SODIUM (BEAKER) (test code = 381) 136 meq/L 136-145 POTASSIUM (BEAKER) (test code = 4.0 meq/L 3.5-5.1 379) CHLORIDE (BEAKER) (test code = 382) 96 meq/L 98-107 L CO2 (BEAKER) (test code = 355) 25 meq/L 22-29 Dimension Warehouse Supervisor ID - ANTONY [id number] 14:15:00 Test Item Value Reference Range Interpretation Comments GLUCOSE RANDOM (BEAKER) (test code 164 mg/dL 70-105 H = 652) Dimension Warehouse Supervisor ID - ANTONY FPT/[id number] 14:01:00 Test Item Value Reference Range Interpretation [...] is 2.5-3.5 for patients with mechanical heart valves.[id number] 13:54:00 Test Item Value Reference Range Interpretation Comments HEMOGLOBIN (BEAKER) (test code = 10.3 GM/DL 13.7-17.5 L 410) Dimension Warehouse Supervisor ID - [id number] CULTURE + SMEAR (NON-SPUTUM)2020-04-29 09:42:00 Test Item [...] fast bacilli (test code = 994) seen COVID 19 INHOUSE [id number] 18:00:00 Test Item Value Reference Range Interpretation Comments COVID 19 INHOUSE AG NEGATIVE Negative Per manu facturer, (test code = negative result s should [id number]) be treated aspr esumptive and, if inconsi stent with clinical signs andsymptoms or necessary for patient man agement, should betested with an alternative mol ecular assay. Negative resultsdo not preclude SA RS-CoV-2 infection and s hould not be usedas the s ole basis for patient man agement decisions. Neg ative results should be considered in t he context of apatient's r ecent exposures, hist ory, presence of cli nicalsigns and symptoms co nsistent with COVID-19. FUNGUS CULTURE + [id number] 00:50:00 Test Item Value Reference Range Interpretation Comments CULTURE (BEAKER) (test No fungus isolated in code = 1095) 28 days FUNGUS SMEAR (BEAKER) No fungi seen (test code = 1406) BASIC METABOLIC [id number] 16:48:00 Test Item Value Reference Range Interpretation [...] code = CA) 8.4 MG/DL 8.5-10.1 L SARS-COV2/RT-PCR ([facility])2020-03-27 14:01:00 Test Item Value Reference Range Interpretation Comments SARS-COV2/RT-PCR (test Negative Not Detected, Negative, code = 9400766) See external report for linked test SARS-COV-2 PERFORMING LAB [facility] (test code = 4365411) Negative result for this test determines that [...] 564(g) of the Act.Fact Sheet for Healthcare Providers:https://www.[employer]/sites/default/files/product/documents/Fact_Shee m_ZT_Ugxqvxdxp_Ckwh_NENJ-QkT-3.pdfFact Sheet for Healthcare Patients:https://www.[employer]/sites/default/files/product/ documents/Oxyr_Uglrg_Sogsxuvf_Ddjk_CQZD-RkL-1.pdfPerforming Laboratory:[facility] [place] [id number] CULTURE + GRAM [id number] 09:53:00 Test Item Value Reference Range Interpretation [...] No organisms seen (BEAKER) (test code = 074466) POCT-GLUCOSE [id number] 07:57:00 Test Item Value Reference Range Interpretation Comments POC-GLUCOSE METER 87 mg/dL 70-110 : TESTED A T [facility] 6720 (BEAKER) (test code = [facility], 153) 31934: Dimension Warehouse Supervisor/Techni estefani ID = [id number] for Alix Jo HEMOGLOBIN AND [id number] 06:56:00 Test Item Value Reference Range Interpretation Comments HEMOGLOBIN (BEAKER) (test code = 8.7 GM/DL 13.7-17.5 L 410) HEMATOCRIT (BEAKER) (test code = 28.0 % 40.1-51.0 L 411) Dimension Warehouse Supervisor ID - 6000POCT-GLUCOSE [id number] 00:03:00 Test Item Value Reference Range Interpretation Comments POC-GLUCOSE METER 144 mg/dL 70-110 H : TESTED A T [facility] 6720 (BEAKER) (test code = [facility], 153) 42078: Dimension Warehouse Supervisor/Techni estefani ID = [id number] for CRYSTAL RANGEL POCT-GLUCOSE [id number] 18:10:00 Test Item Value Reference Range Interpretation Comments POC-GLUCOSE METER 117 mg/dL 70-110 H : TESTED A T [facility] 6720 (BEAKER) (test code = [facility], 153) 55026: Dimension Warehouse Supervisor/Techni estefani ID = [id number] for Avery Levy BASIC METABOLIC [id number] 16:25:00 Test Item Value Reference Range Interpretation [...] S NOT APPLICABLE FOR DIALYSIS PATIEN TS. Dimension Warehouse Supervisor ID - ANTONY [id number] 16:08:00 Test Item Value Reference Range Interpretation Comments PHOSPHORUS (BEAKER) (test code = 4.1 mg/dL 2.3-4.7 604) Dimension Warehouse Supervisor ID - ANTONY FCBC W/PLT COUNT & AUTO [id number] 15:56:00 Test Item Value Reference Range Interpretation [...] PERCENT (BEAKER) (test code = 2801) POCT-GLUCOSE [id number] 11:29:00 Test Item Value Reference Range Interpretation Comments POC-GLUCOSE METER 102 mg/dL 70-110 : TESTED A T [facility] 6720 (BEAKER) (test code = [facility], 153) 67085: Dimension Warehouse Supervisor/Techni estefani ID = [id number] for ES QUIVEL, JAD POCT-GLUCOSE [id number] 09:21:00 Test Item Value Reference Range Interpretation Comments POC-GLUCOSE METER 94 mg/dL 70-110 : TESTED A T [facility] 6720 (BEAKER) (test code = [facility], 153) 25070: Dimension Warehouse Supervisor/Techni estefani ID = [id number] for ESQU IVEL, JAD POCT-GLUCOSE [id number] 08:43:00 Test Item Value Reference Range Interpretation Comments POC-GLUCOSE METER 68 mg/dL 70-110 L : TESTED A T [facility] 6720 (BEAKER) (test code = [facility], 153) 20965: Dimension Warehouse Supervisor/Techni estefani ID = [id number] for ESQU IVEL, JAD FUNGUS CULTURE + [id number] 00:31:00 Test Item Value Reference Range Interpretation Comments CULTURE (BEAKER) A 1+ Cami (test code = 1095) parapsilo sis FUNGUS SMEAR No fungi seen (BEAKER) (test code = 1406) POCT-GLUCOSE [id number] 22:45:00 Test Item Value Reference Range Interpretation Comments POC-GLUCOSE METER 100 mg/dL 70-110 : TESTED A T [facility] 6720 (BEAKER) (test code = [facility], [facility]8) 55162: Dimension Warehouse Supervisor/Techni estefani ID = [id number] for TEJINDER MORALES POCT-GLUCOSE [id number] 21:50:00 Test Item Value Reference Range Interpretation Comments POC-GLUCOSE METER 121 mg/dL 70-110 H : TESTED A T [facility] 6720 (BEAKER) (test code = [facility], [facility]) 03601: Dimension Warehouse Supervisor/Techni estefani ID = [id number] for Maya Kennedyanor POCT-GLUCOSE [id number] 17:35:00 Test Item Value Reference Range Interpretation Comments POC-GLUCOSE METER 117 mg/dL 70-110 H : TESTED A T [facility] 6720 (BEAKER) (test code = [facility], [facility]8) 31067: Dimension Warehouse Supervisor/Techni estefani ID = [id number] for CLAUDIA ROSALESINEZ, AMADA POCT-GLUCOSE [id number] 11:29:00 Test Item Value Reference Range Interpretation Comments POC-GLUCOSE METER 92 mg/dL 70-110 : TESTED A T [facility] 6720 (BEAKER) (test code = [facility], [facility]8) 81611: Dimension Warehouse Supervisor/Techni estefani ID = [id number] for MART WING, AMADA POCT-GLUCOSE [id number] 07:20:00 Test Item Value Reference Range Interpretation Comments POC-GLUCOSE METER 76 mg/dL 70-110 : TESTED A T [facility] 6720 (BEAKER) (test code = [facility], 1538) 97319: Dimension Warehouse Supervisor/Techni estefani ID = [id number] for MART WING, AMADA POCT-GLUCOSE [id number] 21:24:00 Test Item Value Reference Range Interpretation Comments POC-GLUCOSE METER 199 mg/dL 70-110 H : TESTED A T [facility] 6720 (BEAKER) (test code = [facility], 1538) 33773: Dimension Warehouse Supervisor/Techni estefani ID = [id number] for TEJINDER MORALES POCT-GLUCOSE [id number] 18:07:00 Test Item Value Reference Range Interpretation Comments POC-GLUCOSE METER 135 mg/dL 70-110 H : TESTED A T [facility] 6720 (BEAKER) (test code = DASIA Garcia [facility], 1538) 57374: Dimension Warehouse Supervisor/Techni estefani ID = [id number] for AMADA MEDRANO CBC W/PLT COUNT & AUTO [id number] 15:25:00 Test Item Value Reference Range Interpretation [...] PERCENT (BEAKER) (test code = 2801) POCT-GLUCOSE [id number] 11:52:00 Test Item Value Reference Range Interpretation Comments POC-GLUCOSE METER 91 mg/dL 70-110 : TESTED A T [facility] 6720 (BEAKER) (test code = [facility], 1538) 71859: Dimension Warehouse Supervisor/Techni estefani ID = [id number] for AMADA DUKES POCT-GLUCOSE [id number] 07:39:00 Test Item Value Reference Range Interpretation Comments POC-GLUCOSE METER 92 mg/dL 70-110 : TESTED A T [facility] 6720 (BEAKER) (test code = [facility], 1538) 15637: Dimension Warehouse Supervisor/Techni estefani ID = [id number] for AMADA DUKES BASIC METABOLIC [id number] 07:22:00 Test Item Value Reference Range Interpretation [...] S NOT APPLICABLE FOR DIALYSIS PATIEN TS. Dimension Warehouse Supervisor ID - PIAYA LPOCT-GLUCOSE [id number] 21:35:00 Test Item Value Reference Range Interpretation Comments POC-GLUCOSE METER 115 mg/dL 70-110 H : TESTED A T [facility] 6720 (BEAKER) (test code = [facility], 1538) 11384: Dimension Warehouse Supervisor/Techni estefani ID = [id number] for CRYSTAL RANGEL POCT-GLUCOSE [id number] 17:07:00 Test Item Value Reference Range Interpretation Comments POC-GLUCOSE METER 124 mg/dL 70-110 H : TESTED A T [facility] 6720 (BEAKER) (test code = [facility], 1538) 47219: Dimension Warehouse Supervisor/Techni estefani ID = [id number] for Alix Guerra POCT-GLUCOSE [id number] 12:54:00 Test Item Value Reference Range Interpretation Comments POC-GLUCOSE METER 96 mg/dL 70-110 : TESTED A T [facility] 6720 (BEAKER) (test code = [facility], 1538) 39515: Dimension Warehouse Supervisor/Techni estefani ID = [id number] for LATZaire CARNES - FLETCHER COLLNIS POCT-GLUCOSE [id number] 08:06:00 Test Item Value Reference Range Interpretation Comments POC-GLUCOSE METER 83 mg/dL 70-110 : TESTED A T [facility] 6720 (BEAKER) (test code = [facility], 1538) 27740: Dimension Warehouse Supervisor/Techni estefani ID = [id number] for LATT TRICE - FLETCHER, COLLINS BASIC METABOLIC [id number] 07:36:00 Test Item Value Reference Range Interpretation [...] S NOT APPLICABLE FOR DIALYSIS PATIEN TS. Dimension Warehouse Supervisor ID - PIAYA LPOCT-GLUCOSE [id number] 21:38:00 Test Item Value Reference Range Interpretation Comments POC-GLUCOSE METER 130 mg/dL 70-110 H : TESTED A T [facility]20 (BEAKER) (test code = [facility], 153) 26665: Dimension Warehouse Supervisor/Techni estefani ID = [id number] for SA HIGGINSCRYSTAL POCT-GLUCOSE [id number] 16:28:00 Test Item Value Reference Range Interpretation Comments POC-GLUCOSE METER 127 mg/dL 70-110 H : TESTED A T [facility] 6720 (BEAKER) (test code = [facility], 1538) 07025: Dimension Warehouse Supervisor/Techni estefani ID = [id number] for ES QUIVEL, JAD POCT-GLUCOSE [id number] 11:41:00 Test Item Value Reference Range Interpretation Comments POC-GLUCOSE METER 143 mg/dL 70-110 H : TESTED A T [facility] 6720 (BEAKER) (test code = [facility], 1538) 99458: Dimension Warehouse Supervisor/Techni estefani ID = [id number] for ES QUIVEL, JAD POCT-GLUCOSE [id number] 08:03:00 Test Item Value Reference Range Interpretation Comments POC-GLUCOSE METER 86 mg/dL 70-110 : TESTED A T [facility] 6720 (BEAKER) (test code = [facility], 1538) 28987: Dimension Warehouse Supervisor/Techni estefani ID = [id number] for ESQU IVEL, JAD BASIC METABOLIC [id number] 07:41:00 Test Item Value Reference Range Interpretation [...] S NOT APPLICABLE FOR DIALYSIS PATIEN TS. Dimension Warehouse Supervisor ID - JAQUELINE MCBC W/PLT COUNT & AUTO [id number] 07:15:00 Test Item Value Reference Range Interpretation [...] PERCENT (BEAKER) (test code = 2801) POCT-GLUCOSE [id number] 21:13:00 Test Item Value Reference Range Interpretation Comments POC-GLUCOSE METER 146 mg/dL 70-110 H : TESTED A T [facility] 6720 (BEAKER) (test code = [facility], 153) 65307: Dimension Warehouse Supervisor/Techni estefani ID = [id number] for SA HIGGINSDEANNACRYSTAL POCT-GLUCOSE [id number] 17:37:00 Test Item Value Reference Range Interpretation Comments POC-GLUCOSE METER 140 mg/dL 70-110 H : TESTED A T [facility] 6720 (BEAKER) (test code = [facility], 153) 03307: Dimension Warehouse Supervisor/Techni estefani ID = [id number] for ES QUIVEL, JAD POCT-GLUCOSE [id number] 13:12:00 Test Item Value Reference Range Interpretation Comments POC-GLUCOSE METER 78 mg/dL 70-110 : TESTED A T [facility] 6720 (BEAKER) (test code = [facility], 1538) 82432: Dimension Warehouse Supervisor/Techni estefani ID = [id number] for ESQU IVEL, JAD POCT-GLUCOSE [id number] 07:32:00 Test Item Value Reference Range Interpretation Comments POC-GLUCOSE METER 77 mg/dL 70-110 : TESTED A T [facility] 6720 (BEAKER) (test code = DASIA Garcia [facility], 1538) 20960: Dimension Warehouse Supervisor/Techni estefani ID = [id number] for JAD MICHAEL BASIC METABOLIC [id number] 07:14:00 Test Item Value Reference Range Interpretation [...] S NOT APPLICABLE FOR DIALYSIS PATIEN TS. Dimension Warehouse Supervisor ID - [id number] 07:04:00 Test Item Value Reference Range Interpretation Comments PHOSPHORUS (BEAKER) (test code = 5.2 mg/dL 2.3-4.7 H 604) Dimension Warehouse Supervisor ID - ADMINPOCT-GLUCOSE [id number] 21:39:00 Test Item Value Reference Range Interpretation Comments POC-GLUCOSE METER 148 mg/dL 70-110 H : TESTED A T [facility] 6720 (BEAKER) (test code = DASIA Garcia [facility], 1538) 41814: Dimension Warehouse Supervisor/Techni estefani ID = [id number] for TEJINDER MORALES POCT-GLUCOSE [id number] 17:38:00 Test Item Value Reference Range Interpretation Comments POC-GLUCOSE METER 114 mg/dL 70-110 H : TESTED A T [facility] 6720 (BEAKER) (test code = [facility], 1538) 74294: Dimension Warehouse Supervisor/Techni estefani ID = [id number] for AMADA MEDRANO POCT-GLUCOSE [id number] 16:11:00 Test Item Value Reference Range Interpretation Comments POC-GLUCOSE METER 93 mg/dL 70-110 : TESTED A T [facility] 6720 (BEAKER) (test code = [facility], 1538) 10653: Dimension Warehouse Supervisor/Techni estefani ID = [id number] for AMADA DUKES POCT-GLUCOSE [id number] 14:27:00 Test Item Value Reference Range Interpretation Comments POC-GLUCOSE METER 98 mg/dL 70-110 : TESTED A T [facility] 6720 (BEAKER) (test code = [facility], 1538) 05095: Dimension Warehouse Supervisor/Techni estefani ID = [id number] for ANA LAURA OR, TEIKA POCT-GLUCOSE [id number] 07:48:00 Test Item Value Reference Range Interpretation Comments POC-GLUCOSE METER 101 mg/dL 70-110 : [facility] (test code = [facility], 1538) 47847: Dimension Warehouse Supervisor/Techni estefani ID = [id number] for AYLA KELLOGG POCT-GLUCOSE [id number] 07:24:00 Test Item Value Reference Range Interpretation Comments POC-GLUCOSE METER 101 mg/dL 70-110 : [facility] (test code = [facility], 1538) 18890: [employer] Warehouse Supervisor/Techni estefani ID = [id number] for AMADA MEDRANO SARS-COV2/RT-PCR ([facility])2020-03-20 07:17:00 Test Item Value Reference Range Interpretation Comments SARS-COV2/RT-PCR (test Negative Not Detected, Negative, code = 3774193) See external report for linked test SARS-COV-2 PERFORMING LAB [facility] (test code = 3791972) Negative result for this test determines that [...] Giles SARS-CoV-2 assay.Fact Sheet for Healthcare Providers:https://www.molecular.giles/ari/ VO_EEHE-TtM-6_HIZ_Hdjs_Zrzno_99-458578.pdfFact Sheet for Healthcare Patients:https://www.molecular.ab radha/ari/DH_MCMF-GgG-8_Tlbfymp_Hlof_Kbxpn_ER_24-958122S6.pdfPerforming Laboratory:[facility] [place] [address] POCT-GLUCOSE [id number] 21:54:00 Test Item Value Reference Range Interpretation Comments POC-GLUCOSE METER 155 mg/dL 70-110 H : TESTED Vikas Tai [facility] 6720 ([employer]) (test code = DASIA Garcia [facility], 1538) 54011: Dimension Warehouse Supervisor/Techni estefani ID = [id number] for TEJINDER MORALES ANAEROBIC [id number] 19:28:00 Test Item Value Reference Range Interpretation Comments CULTURE (BEAKER) (test No anaerobes isolated code = 1095) ANAEROBIC [id number] 19:23:00 Test Item Value Reference Range Interpretation Comments CULTURE (BEAKER) (test No anaerobes isolated code = 1095) POCT-GLUCOSE [id number] 17:26:00 Test Item Value Reference Range Interpretation Comments POC-GLUCOSE METER 128 mg/dL 70-110 H : TESTED A T [facility] 6720 (BEAKER) (test code = [facility], 1538) 54505: Dimension Warehouse Supervisor/Techni estefani ID = [id number] for AMADA MEDRANO POCT-GLUCOSE [id number] 12:04:00 Test Item Value Reference Range Interpretation Comments POC-GLUCOSE METER 93 mg/dL 70-110 : TESTED A T [facility] 6720 (BEAKER) (test code = [facility], 1538) 58455: Dimension Warehouse Supervisor/Techni estefani ID = [id number] for AMADA DUKES BASIC METABOLIC [id number] 09:28:00 Test Item Value Reference Range Interpretation [...] S NOT APPLICABLE FOR DIALYSIS PATIEN TS. Dimension Warehouse Supervisor ID - PIAYA LPOCT-GLUCOSE [id number] 21:30:00 Test Item Value Reference Range Interpretation Comments POC-GLUCOSE METER 133 mg/dL 70-110 H : TESTED A T [facility] 6720 (BEAKER) (test code = [facility], 1538) 81088: Dimension Warehouse Supervisor/Techni estefani ID = [id number] for CRYSTAL RANGEL POCT-GLUCOSE [id number] 19:29:00 Test Item Value Reference Range Interpretation Comments POC-GLUCOSE METER 191 mg/dL 70-110 H : TESTED A T [facility] 6720 (BEAKER) (test code = [facility], 1538) 88133: Dimension Warehouse Supervisor/Techni estefani ID = [id number] for MARIFER WEEKS POCT-GLUCOSE [id number] 11:31:00 Test Item Value Reference Range Interpretation Comments POC-GLUCOSE METER 119 mg/dL 70-110 H : TESTED A T [facility] 6720 (BEAKER) (test code = [facility], 1538) 93499: Dimension Warehouse Supervisor/Techni estefani ID = [id number] for JAD SALGUERO POCT-GLUCOSE [id number] 07:32:00 Test Item Value Reference Range Interpretation Comments POC-GLUCOSE METER 115 mg/dL 70-110 H : TESTED A T [facility] 6720 (BEAKER) (test code = [facility], 1538) 64469: Dimension Warehouse Supervisor/Techni estefani ID = [id number] for JAD SALGUERO BASIC METABOLIC [id number] 06:39:00 Test Item Value Reference Range Interpretation [...] S NOT APPLICABLE FOR DIALYSIS PATIEN TS. Dimension Warehouse Supervisor ID - PIAYA LCBC W/PLT COUNT & AUTO [id number] 06:01:00 Test Item Value Reference Range Interpretation [...] PERCENT (BEAKER) (test code = 2801) POCT-GLUCOSE [id number] 21:16:00 Test Item Value Reference Range Interpretation Comments POC-GLUCOSE METER 145 mg/dL 70-110 H : TESTED A T [facility] 6720 (BEAKER) (test code = DASIA Garcia [facility], 1538) 07598: Dimension Warehouse Supervisor/Techni estefani ID = [id number] for CRYSTAL RANGEL TISSUE [id number] 19:02:00Surgical Pathology Report Case: [id number] Authorizing Provider: Star Cloud DPM Collected: 03/13/2020 12:32 PM Ordering Location: [facility] Received: 03/13/2020 02:59 PM PERIOPERATIVE SERVICES Pathologist: Vandana Beverly MD Specimen: Metat arsal, Right, base of the first metatarsal bone RIGHT FOOT, BASE OF 1ST METATARSAL, NON-HEALING WOUND, DEBRIDEMENT: - GANGRENOUS NECROSIS INVOLVING SKIN AND SUBCUTANEOUSTISSUE - ACUTE OSTEOMYELITIS, SEVERE Signing Pathologist Direct Phone Line: [phone] signed by Vandana Beverly MD on 03/17/2020 at 7:02 [id number]; [id number] surgical wound, sequela Metatarsal, rightReceived in formalin labeled the patient's name, accession number and "base of the first metatarsal bone" is a 6.0 x 5.5 x 2.0 cm aggregate of gadrner-yellow, trabeculated bone fragments and a 5.0 x 4.5 x 0.3 cm portion of green-black, necrotic fat and soft tissue. Due to the fragmented nature of the specimen, the margin cannot be assessed. The articular surface is gardner-baca and partially blackened. Sectioning reveals a gardner-yellow, firm, trabeculated cut surface. Technology Lead sections are submitted as follows:Section codeA1-skin and soft zunfppU5-J2-cgqf following decalcificationPishivani Caraballo PA, HT (ASCP)PERFORMEDThe interpretation of this case included the use of immunohistochemistry or special stains.Control Slides Examined: In-house known positive controls were evaluated along with the test tissue. These control slides run alongside of the patients sample show appropriate staining. Internal positive and negative controls when available are evaluated Immunohistochemistry technical testing was performed at [facility], PathologyLaboratory where it was developed and its performance characteristics were determined. It has not been cleared or approved by the U.S. Food and Drug Administration. The FDA has determined that such simon sofia or approval is not necessary. The test is used for clinical purposes. It should not be regarded as investigational or for research. This laboratory is certified under the Clinical Laboratory Improvement Amendments of 1988 (CLIA-88) as qualified to perform high complexity clinical laboratory testing.POCT-GLUCOSE [id number] 17:26:00 Test Item Value Reference Range Interpretation Comments POC-GLUCOSE METER 145 mg/dL 70-110 H : TESTED A T [facility] 6720 (BEAKER) (test code = [facility], 1538) 95367: Dimension Warehouse Supervisor/Techni estefani ID = [id number] for Ng Sabine rivera POCT-GLUCOSE [id number] 07:31:00 Test Item Value Reference Range Interpretation Comments POC-GLUCOSE METER 94 mg/dL 70-110 : TESTED A T [facility] 6720 (BEAKER) (test code = [facility], 1538) 10058: Dimension Warehouse Supervisor/Techni estefani ID = [id number] for MONICA BELLJAD CAMARA CBC W/PLT COUNT & AUTO [id number] 06:23:00 Test Item Value Reference Range Interpretation [...] PERCENT (BEAKER) (test code = 2801) POCT-GLUCOSE [id number] 06:14:00 Test Item Value Reference Range Interpretation Comments POC-GLUCOSE METER 97 mg/dL 70-110 : TESTED A T [facility] 6720 (BEAKER) (test code = DASIA [facility] [place], 1538) 71174: Dimension Warehouse Supervisor/Techni estefani ID = [id number] for TEJINDER KITCHEN BASIC METABOLIC [id number] 06:14:00 Test Item Value Reference Range Interpretation [...] S NOT APPLICABLE FOR DIALYSIS PATIEN TS. Dimension Warehouse Supervisor ID - EDASIBLOOD [id number] 00:01:00 Test Item Value Reference Range Interpretation Comments CULTURE (BEAKER) (test No growth in 5 days code = 1095) BLOOD [id number] 00:01:00 Test Item Value Reference Range Interpretation Comments CULTURE (BEAKER) (test No growth in 5 days code = 1095) POCT-GLUCOSE [id number] 21:35:00 Test Item Value Reference Range Interpretation Comments POC-GLUCOSE METER 169 mg/dL 70-110 H : TESTED A T [facility] 6720 (BEAKER) [facility] = [facility] [employer] [facility], 1538) 28052: Dimension Warehouse Supervisor/Techni estefani ID = [id number] for TEJINDER MORALES POCT-GLUCOSE [id number] 17:54:00 Test Item Value Reference Range Interpretation Comments POC-GLUCOSE METER 133 mg/dL 70-110 H : TESTED A T [facility] 6720 (BEAKER) (test [facility] = [facility] [employer] [facility], 1538) 72081: Dimension Warehouse Supervisor/Techni estefani ID = [id number] for JAQUI SKELTON POCT-GLUCOSE [id number] 12:50:00 Test Item Value Reference Range Interpretation Comments POC-GLUCOSE METER 110 mg/dL 70-110 : TESTED A T [facility] 6720 (BEAKER) (test code = [facility], 153) 13724: Dimension Warehouse Supervisor/Techni estefani ID = [id number] for JAQUI SKELTON SURGICALLY OBTAINED CULTURE + GRAM [id number] 09:39:00 Test Item Value Reference Range Interpretation Comments CULTURE A 2+ Same organis m has (BEAKER) (test been isolated from code = 1095) cultures(s) of the same body site within 3 days. Repeat identification and susceptibility testing performed only after consultation wi the clinical microb iology laboratory.Refe r to previous cultur e ofPseudomonas aeruginosaof a second type GRAM STAIN 3+ White blood RESULT (BEAKER) cells seen (test code = 1123) GRAM STAIN No organisms seen RESULT (BEAKER) (test code = 313844) SURGICALLY OBTAINED CULTURE + GRAM [id number] 09:39:00 Test Item Value Reference Range Interpretation Comments CULTURE (BEAKER) A 1+ Same org anism has (test code = been isolated f rom 1095) cultures(s) of the same body site within 3 days. Repeat identification and susceptibility testing performed only after consultation wi the clinical microb iology laboratory.Refe r to previous cultur e ofPseudomonas aeruginosaof a second type GRAM STAIN 2+ White blood RESULT (BEAKER) cells seen (test code = 1123) GRAM STAIN <1+ gram RESULT (BEAKER) negative rods (test code = 940720) POCT-GLUCOSE [id number] 08:12:00 Test Item Value Reference Range Interpretation Comments POC-GLUCOSE METER 88 mg/dL 70-110 : TESTED A T [facility] 6720 (BEAKER) (test code = [facility], 153) 06904: Dimension Warehouse Supervisor/Techni estefani ID = [id number] for HA RUIZ (V), EFRAIN POCT-GLUCOSE [id number] 07:19:00 Test Item Value Reference Range Interpretation Comments POC-GLUCOSE METER 97 mg/dL 70-110 : TESTED A T [facility] 6720 (BEAKER) (test code = [facility], 153) 80016: Dimension Warehouse Supervisor/Techni estefani ID = [id number] for NATE JUAN BASIC METABOLIC [id number] 07:19:00 Test Item Value Reference Range Interpretation [...] S NOT APPLICABLE FOR DIALYSIS PATIEN TS. Dimension Warehouse Supervisor ID - [id number] 07:08:00 Test Item Value Reference Range Interpretation Comments MAGNESIUM (BEAKER) (test code = 2.1 mg/dL 1.6-2.6 627) Dimension Warehouse Supervisor ID - EDASICBC W/PLT COUNT & AUTO [id number] 06:30:00 Test Item Value Reference Range Interpretation [...] PERCENT (BEAKER) (test code = 2801) POCT-GLUCOSE [id number] 20:33:00 Test Item Value Reference Range Interpretation Comments POC-GLUCOSE METER 129 mg/dL 70-110 H : TESTED A T [facility] 6720 (BEAKER) (test code = [facility], 153) 03173: Dimension Warehouse Supervisor/Techni estefani ID = [id number] for ES QUULIESSL JAD POCT-GLUCOSE [id number] 17:20:00 Test Item Value Reference Range Interpretation Comments POC-GLUCOSE METER 108 mg/dL 70-110 : TESTED A T [facility] 6720 (BEAKER) (test code = [facility], 1538) 31147: Dimension Warehouse Supervisor/Techni estefani ID = [id number] for KO LLEADE, RITCHEL POCT-GLUCOSE [id number] 11:17:00 Test Item Value Reference Range Interpretation Comments POC-GLUCOSE METER 115 mg/dL 70-110 H : TESTED A T [facility] 6720 (BEAKER) (test code = DASIA Garcia [place], 1538) 92247: Dimension Warehouse Supervisor/Techni estefani ID = [id number] for ANYA GONZALEZ POCT-GLUCOSE [id number] 08:18:00 Test Item Value Reference Range Interpretation Comments POC-GLUCOSE METER 87 mg/dL 70-110 : TESTED A T [facility] 6720 (BEAKER) (test code = DASIA Garcia [facility], 1538) 00429: Dimension Warehouse Supervisor/Techni estefani ID = [id number] for SANTOS ALANIZ [id number] 07:32:00 Test Item Value Reference Range Interpretation Comments MAGNESIUM (BEAKER) (test code = 2.0 mg/dL 1.6-2.6 627) Dimension Warehouse Supervisor ID - EDASIBASIC METABOLIC [id number] 07:32:00 Test Item Value Reference Range Interpretation [...] S NOT APPLICABLE FOR DIALYSIS PATIEN TS. Dimension Warehouse Supervisor ID - EDASICBC W/PLT COUNT & AUTO [id number] 07:08:00 Test Item Value Reference Range Interpretation [...] PERCENT (BEAKER) (test code = 2801) POCT-GLUCOSE [id number] 22:22:00 Test Item Value Reference Range Interpretation Comments POC-GLUCOSE METER 180 mg/dL 70-110 H : TESTED A T [facility] 6720 (BEAKER) (test code = [facility] Jose [facility], 1538) 25852: Dimension Warehouse Supervisor/Techni estefani ID = [id number] for CRYSTAL RANGEL HEPATITIS B SURFACE [id number] 17:23:00 Test Item Value Reference Range Interpretation Comments HEPATITIS B SURFACE ANTIGEN (2) Nonreactive Nonreactive (BEAKER) (test code = 2585) Specimen is considered negative for HBsAg.SPIN/CONCENTRATION [id number] 14:24:00 Test Item Value Reference Range Interpretation Comments CONCENTRATION CHARGED (BEAKER) (test Done code = 2657) SPIN/CONCENTRATION [id number] 14:23:00 Test Item Value Reference Range Interpretation Comments CONCENTRATION CHARGED (BEAKER) (test Done code = 2657) POCT-GLUCOSE [id number] 12:00:00 Test Item Value Reference Range Interpretation Comments POC-GLUCOSE METER 84 mg/dL 70-110 : TESTED A T [facility] 6720 (BEAKER) (test code = DASIA Garcia [facility], 1538) 58115: Dimension Warehouse Supervisor/Techni estefani ID = [id number] for AMADA DUKES BASIC METABOLIC [id number] 09:03:00 Test Item Value Reference Range Interpretation [...] S NOT APPLICABLE FOR DIALYSIS PATIEN TS. Dimension Warehouse Supervisor ID - PIAYA [id number] 08:43:00 Test Item Value Reference Range Interpretation Comments MAGNESIUM (BEAKER) (test code = 2.4 mg/dL 1.6-2.6 627) Dimension Warehouse Supervisor ID - PIAYA LPOCT-GLUCOSE [id number] 07:47:00 Test Item Value Reference Range Interpretation Comments POC-GLUCOSE METER 99 mg/dL 70-110 : TESTED A T [facility] 6720 (BEAKER) (test code = [facility], 1538) 21600: Dimension Warehouse Supervisor/Techni estefani ID = [id number] for AMADA DUKES POCT-GLUCOSE [id number] 22:12:00 Test Item Value Reference Range Interpretation Comments POC-GLUCOSE METER 139 mg/dL 70-110 H : TESTED A T [facility] 6720 (BEAKER) (test code = [facility], 1538) 34388: Dimension Warehouse Supervisor/Techni estefani ID = [id number] for JONES MARIBELLJEFFREY TEJINDER POCT-GLUCOSE [id number] 17:34:00 Test Item Value Reference Range Interpretation Comments POC-GLUCOSE METER 157 mg/dL 70-110 H : TESTED A T [facility] 6720 (BEAKER) (test code = [facility], 1538) 81034: Dimension Warehouse Supervisor/Techni estefani ID = [id number] for MIMS SARA (V), EFRAIN POCT-GLUCOSE [id number] 14:08:00 Test Item Value Reference Range Interpretation Comments POC-GLUCOSE METER 94 mg/dL 70-110 : TESTED A T [facility] 6720 (BEAKER) (test code = [facility], 1538) 22079: Dimension Warehouse Supervisor/Techni estefani ID = [id number] for JERO JOSE [place] HGB/HCT (H&H) - STAT [id number] 10:02:00 Test Item Value Reference Range Interpretation Comments HEMOGLOBIN (BEAKER) (test code = 8.5 GM/DL 13.0-16.8 L 410) HEMATOCRIT (BEAKER) (test code = 25.0 % 40.0-50.0 L 411) POTASSIUM-STAT [id number] 09:56:00 Test Item Value Reference Range Interpretation Comments POTASSIUM (BEAKER) (test code = 3.6 meq/L 3.6-5.5 379) POCT-GLUCOSE [id number] 07:53:00 Test Item Value Reference Range Interpretation Comments POC-GLUCOSE METER 97 mg/dL 70-110 : TESTED A T [facility] 6720 (BEAKER) (test code = [facility], 1538) 00110: Dimension Warehouse Supervisor/Techni estefani ID = [id number] for FOZIA CARNES - COLLINS BYNUM POCT-GLUCOSE [id number] 22:01:00 Test Item Value Reference Range Interpretation Comments POC-GLUCOSE METER 173 mg/dL 70-110 H : TESTED A T [facility] 6720 (BEAKER) (test code = [facility], 1538) 87728: Dimension Warehouse Supervisor/Techni estefani ID = [id number] for JAD SALGUERO POCT-GLUCOSE [id number] 18:20:00 Test Item Value Reference Range Interpretation Comments POC-GLUCOSE METER 161 mg/dL 70-110 H : TESTED A T [facility] 6720 (BEAKER) (test code [facility], = 1538) 19581: Dimension Warehouse Supervisor/Techni estefani ID = [id number] for FOZIA CARNES - COLLINS BYNUM POCT-GLUCOSE [id number] 12:22:00 Test Item Value Reference Range Interpretation Comments POC-GLUCOSE METER 94 mg/dL 70-110 : TESTED A T [facility] 6720 (BEAKER) (test code = [facility], 1538) 65893: Dimension Warehouse Supervisor/Techni estefani ID = [id number] for FOZIA CARNES - COLLINS BYNUM SARS-COV2/RT-PCR ([facility])2020-03-12 12:11:00 Test Item Value Reference Range Interpretation Comments SARS-COV2/RT-PCR (test code Negative Not Detected, Negative, = 3018799) See external report for linked test SARS-COV-2 PERFORMING LAB [facility] (test code = 4135732) Negative results do not preclude SARS-CoV-2 infection [...] of the Act.Fact Sheet for Healthcare Pro viders:https://www.Hubba/Documents/Xpert%20Xpress%20SARS%20CoV-2/Fact%20Sh eets/302-3802%04KPGE-ETK-7%20HEALTHCARE%20PROVIDERS%20FACT%20SHEET.pdfFact Sheet for Healthcare Patients:https://www.Netsize/Documents/Xpert%20Xpress%20SARS%20CoV-2/Fact%20Sheets/302-3801%20SARS-COV -2%20PATIENT%20FACT%20SHEET.pdfPerforming Laboratory:[facility], [place] [address]FUEM-OOXJLXE [id number] 08:44:00 Test Item Value Reference Range Interpretation Comments POC-GLUCOSE METER 92 mg/dL 70-110 : TESTED A T [facility] 6720 (BEAKER) (test code = DASIA Garcia [facility], 1538) 02217: Dimension Warehouse Supervisor/Techni estefani ID = [id number] for COLLINS SIFUENTES HEMOGLOBIN [id number] 08:17:00 Test Item Value Reference Range Interpretation Comments HEMOGLOBIN A1C (BEAKER) (test code = 5.6 % 4.3-6.1 368) HEPATIC FUNCTION [id number] 06:07:00 Test Item Value Reference Range Interpretation [...] code = < U/L 6-55 L 347) Dimension Warehouse Supervisor ID - ADMINC-REACTIVE [id number] 06:06:00 Test Item Value Reference Range Interpretation Comments C-REACTIVE PROTEIN (BEAKER) (test 3.99 mg/dL 0.00-0.50 H code = 676) Dimension Warehouse Supervisor ID - ADMINBASIC METABOLIC [id number] 06:06:00 Test Item Value Reference Range Interpretation [...] S NOT APPLICABLE FOR DIALYSIS PATIEN TS. Dimension Warehouse Supervisor ID - ADMINPROTHROMBIN [id number] 04:50:00 Test Item Value Reference Range Interpretation [...] INR is2.5-3.5 for patients wiht mechanical heart valves.COMPREHENSIVE METABOLIC PANEL 2020-03-12 00:24:00 Test Item Value Reference Range [...] S NOT APPLICABLE FOR DIALYSIS PATIEN TS. Dimension Warehouse Supervisor ID - PIZAYRA LOperator ID - DANITZA LCBC W/PLT COUNT & AUTO [id number] 23:42:00 Test Item Value Reference Range Interpretation [...] PERCENT (BEAKER) (test code = 2801) PROTHROMBIN [id number] 23:21:00 Test Item Value Reference Range Interpretation [...] is2.5-3.5 for patients wiht mechanical heart valves.POCT-GLUCOSE [id number] 22:00:00 Test Item Value Reference Range Interpretation Comments POC-GLUCOSE METER 203 mg/dL 70-110 H : TESTED A T [facility] 6720 (BEAGA) (test code = DASIA Garcia [facility], 1538) 19604: Dimension Warehouse Supervisor/Techni estefani ID = [id number] for Ruzuku ROJELIO PORTILLO CBC W/AUTO [id number] 19:57:00 Test Item Value Reference Range Interpretation Comments WHITE BLOOD CELL (test code = 7.2 K/mm3 4.5-12.5 N WBC) RED BLOOD CELL (test code = 3.11 mill/mm3 4.0-5.8 L RBC) HEMOGLOBIN (test code = HGB) 8.0 gram/dL 13.0-17.5 L HEMATOCRIT (test code = HCT) 25.2 % 42.0-52.0 L MEAN CELL VOLUME (test code = 81.0 fL 80-98 N MCV) MEAN CELL HGB (test code = MCH) 25.7 picogram 27.0-33.0 L MEAN CELL HGB CONCETRATION 31.7 gram/dL 33.0-36.0 L (test code = MCHC) RED CELL DISTRIBUTION WIDTH 22.1 % 11.6-16.2 H (test code = RDW) RED CELL DISTRIBUTION WIDTH SD 64.1 fL 37.0-51.0 H (test code = RDW-SD) PLATELET COUNT (test code = 253 K/mm3 150-450 N PLT) MEAN PLATELET VOLUME (test code 10.9 fL 6.7-11.0 N = MPV) NEUTROPHIL % (test code = NT%) 75.1 % 39.0-69.0 H IMMATURE GRANULOCYTE % (test 0.4 % 0.0-5.0 N code = IG%) LYMPHOCYTE % (test code = LY%) 11.2 % 25.0-55.0 L MONOCYTE % (test code = MO%) 7.8 % 0.0-10.0 N EOSINOPHIL % (test code = EO%) 4.8 % 0.0-5.0 N BASOPHIL % (test code = BA%) 0.7 % 0.0-1.0 N NUCLEATED RBC % (test code = 0.0 % 0-0 N NRBC%) NEUTROPHIL # (test code = NT#) 5.37 K/mm3 1.8-7.7 N IMMATURE GRANULOCYTE # (test 0.03 x10 3/uL 0-0.03 N code = IG#) LYMPHOCYTE # (test code = LY#) 0.80 K/mm3 1.0-5.0 L MONOCYTE # (test code = MO#) 0.56 K/mm3 0-0.8 N EOSINOPHIL # (test code = EO#) 0.34 K/mm3 0.0-0.5 N BASOPHIL # (test code = BA#) 0.05 K/mm3 0.0-0.2 N NUCLEATED RBC # (test code = 0.00 K/mm3 0.0-0.1 N NRBC#) MANUAL DIFF REQUIRED (test code NO = MDIFF) COMPREHENSIVE METABOLIC [id number] 09:31:00 Test Item Value Reference Range Interpretation Comments SODIUM (test code = 140 mmol/L 136-145 N NA) POTASSIUM (test code = 4.1 mmol/L 3.5-5.1 N K) CHLORIDE (test code = 101.0 mmol/L 98-107 N CL) CARBON DIOXIDE (test 28.0 mmol/L 21-32 N code = CO2) ANION GAP (test code = 15.1 10-20 N GAP) GLUCOSE (test code = 80 mg/dL 74-106 N GLU) BLOOD UREA NITROGEN 36 mg/dL 7-18 H (test code = BUN) GLOMERULAR FILTRATION 9 mL/min >=60 Estima doris GFR by RATE (test code = GFR) using Modified MDRD formula.Chronic kidney disease is defined as [facility] kidney damageor GFR <60 mL/min/1.73 m2 for >3 months. CREATININE (test code 6.10 mg/dL 0.7-1.3 H = CREAT) BUN/CREATININE RATIO 5.9 10-20 L (test code = BUN/CREA) TOTAL PROTEIN (test 6.3 gram/dL 6.4-8.2 L code = PROT) ALBUMIN (test code = 2.4 g/dL 3.4-5.0 L ALB) GLOBULIN (test code = 3.9 gram/dL 2.7-4.2 N GLOB) ALBUMIN/GLOBULIN RATIO 0.6 0.75-1.50 L (test code = A/G) CALCIUM (test code = 7.4 mg/dL 8.5-10.1 L CA) BILIRUBIN TOTAL (test 0.30 mg/dL 0.0-1.0 N code = BILT) SGOT/AST (test code = 11 IUnit/L 15-37 L AST) SGPT/ALT (test code = 8 IUnit/L 12-78 L ALT) ALKALINE PHOSPHATASE 147 IUnit/L 45-117 H Note change in TOTAL (test code = reference range due ALKP) to change in reagent. COMPREHENSIVE METABOLIC [id number] 09:24:00 Test Item Value Reference Range Interpretation Comments SODIUM (test code = NA) 140 mmol/L 136-145 N POTASSIUM (test code = K) 4.1 mmol/L 3.5-5.1 N CHLORIDE (test code = CL) 101.0 mmol/L 98-107 N CARBON DIOXIDE (test code = CO2) mmol/L 21-32 ANION GAP (test code = GAP) 10-20 GLUCOSE (test code = GLU) mg/dL 74-106 BLOOD UREA NITROGEN (test code = mg/dL 7-18 BUN) GLOMERULAR FILTRATION RATE (test mL/min >=60 code = GFR) CREATININE (test code = CREAT) mg/dL 0.7-1.3 BUN/CREATININE RATIO (test code 10-20 = BUN/CREA) TOTAL PROTEIN (test code = PROT) gram/dL 6.4-8.2 ALBUMIN (test code = ALB) g/dL 3.4-5.0 GLOBULIN (test code = GLOB) gram/dL 2.7-4.2 ALBUMIN/GLOBULIN RATIO (test 0.75-1.50 code = A/G) CALCIUM (test code = CA) mg/dL 8.5-10.1 BILIRUBIN TOTAL (test code = mg/dL 0.0-1.0 BILT) SGOT/AST (test code = AST) IUnit/L 15-37 SGPT/ALT (test code = ALT) IUnit/L 12-78 ALKALINE PHOSPHATASE TOTAL (test IUnit/L 45-117 code = ALKP) CBC W/AUTO [id number] 08:56:00 Test Item Value Reference Range Interpretation Comments WHITE BLOOD CELL (test code = 6.9 K/mm3 4.5-12.5 N WBC) RED BLOOD CELL (test code = 2.80 mill/mm3 4.0-5.8 L RBC) HEMOGLOBIN (test code = HGB) 7.2 gram/dL 13.0-17.5 L HEMATOCRIT (test code = HCT) 22.9 % 42.0-52.0 L MEAN CELL VOLUME (test code = 81.8 fL 80-98 N MCV) MEAN CELL HGB (test code = MCH) 25.7 picogram 27.0-33.0 L MEAN CELL HGB CONCETRATION 31.4 gram/dL 33.0-36.0 L (test code = MCHC) RED CELL DISTRIBUTION WIDTH 21.9 % 11.6-16.2 H (test code = RDW) RED CELL DISTRIBUTION WIDTH SD 64.9 fL 37.0-51.0 H (test code = RDW-SD) PLATELET COUNT (test code = 246 K/mm3 150-450 N PLT) MEAN PLATELET VOLUME (test code 10.8 fL 6.7-11.0 N = MPV) NEUTROPHIL % (test code = NT%) 62.0 % 39.0-69.0 N IMMATURE GRANULOCYTE % (test 0.3 % 0.0-5.0 N code = IG%) LYMPHOCYTE % (test code = LY%) 16.7 % 25.0-55.0 L MONOCYTE % (test code = MO%) 12.3 % 0.0-10.0 H EOSINOPHIL % (test code = EO%) 7.7 % 0.0-5.0 H BASOPHIL % (test code = BA%) 1.0 % 0.0-1.0 N NUCLEATED RBC % (test code = 0.0 % 0-0 N NRBC%) NEUTROPHIL # (test code = NT#) 4.28 K/mm3 1.8-7.7 N IMMATURE GRANULOCYTE # (test 0.02 x10 3/uL 0-0.03 N code = IG#) LYMPHOCYTE # (test code = LY#) 1.15 K/mm3 1.0-5.0 N MONOCYTE # (test code = MO#) 0.85 K/mm3 0-0.8 H EOSINOPHIL # (test code = EO#) 0.53 K/mm3 0.0-0.5 H BASOPHIL # (test code = BA#) 0.07 K/mm3 0.0-0.2 N NUCLEATED RBC # (test code = 0.00 K/mm3 0.0-0.1 N NRBC#) AFB CULTURE + SMEAR (NON-SPUTUM)2020-02-25 06:40:00 Test [...] seen is no long er being reported. HGB [id number] 21:19:00 Test Item Value Reference Range Interpretation Comments HEMOGLOBIN (test code 7.0 gram/dL 13.0-17.5 L = HGB) HEMATOCRIT (test code 21.8 % 42.0-52.0 LL Resul ts called to = HCT) NICHO [facility]. 2118Critical re sults verified and re ad back by Nurse? Y HGB [id number] 20:40:00 Test Item Value Reference Range Interpretation Comments HEMOGLOBIN (test code = HGB) 6.9 gram/dL 13.0-17.5 L HEMATOCRIT (test code = HCT) 22.1 % 42.0-52.0 L FUNGUS CULTURE + [id number] 16:32:00 Test Item Value Reference Range Interpretation Comments CULTURE (BEAKER) (test No fungus isolated in code = 1095) 28 days FUNGUS SMEAR (BEAKER) No fungal elements seen (test code = 1406) FUNGUS CULTURE + [id number] 16:32:00 Test Item Value Reference Range Interpretation [...] bacilli (test code = 994) seen POCT-GLUCOSE [id number] 12:16:00 Test Item Value Reference Range Interpretation Comments POC-GLUCOSE METER 104 mg/dL 70-110 : TESTED A T [facility] 6720 (BEAKER) (test code = [facility], 1538) 11556: Dimension Warehouse Supervisor/Techni estefani ID = [id number] for DA SGUPTA, JAYITA POCT-GLUCOSE [id number] 07:26:00 Test Item Value Reference Range Interpretation Comments POC-GLUCOSE METER 89 mg/dL 70-110 : TESTED A T [facility] 6720 (BEAKER) (test code = [facility], 1538) 98001: Dimension Warehouse Supervisor/Techni estefani ID = [id number] for DASG UPTA, JAYITA SARS-COV2/RT-PCR ([facility])2020-01-22 07:13:00 Test Item Value Reference Range Interpretation Comments SARS-COV2/RT-PCR (test Negative Not Detected, Negative, code = 7017265) See external report for linked test SARS-COV-2 PERFORMING LAB [facility] (test code = 2329794) Negative result for this test determines that [...] Giles SARS-CoV-2 assay.Fact Sheet for Healthcare Providers:https://www.molecular.giles/ari/ LF_TFXL-TdW-0_EEE_Bwlg_Lnhar_32-254719.pdfFact Sheet for Healthcare Patients:https://www.Viragen.ab radha/ari/AB_TMAW-TlU-9_Aafhqjw_Nklc_Vnqoe_LA_55-910759L0.pdfPerforming Laboratory:[facility] [place] [address] [place] [address] BASIC METABOLIC [id number] 06:27:00 Test Item Value Reference Range Interpretation [...] S NOT APPLICABLE FOR DIALYSIS PATIEN TS. Dimension Warehouse Supervisor ID - EDASIPOCT-GLUCOSE [id number] 21:15:00 Test Item Value Reference Range Interpretation Comments POC-GLUCOSE METER 123 mg/dL 70-110 H : TESTED A T [facility] 6720 (BEAKER) (test code [facility], = 1538) 38901: Dimension Warehouse Supervisor/Techni estefani ID = [id number] for BRADEN SWARTZ HEPATITIS B SURFACE [id number] 18:16:00 Test Item Value Reference Range Interpretation Comments HEPATITIS B SURFACE ANTIGEN (2) Nonreactive Nonreactive (BEAKER) (test code = 2585) Specimen is considered negative for HBsAg.POCT-GLUCOSE [id number] 16:50:00 Test Item Value Reference Range Interpretation Comments POC-GLUCOSE METER 110 mg/dL 70-110 : TESTED A T [facility] 6720 (BEAKER) (test code = [facility], 1538) 76676: Dimension Warehouse Supervisor/Techni estefani ID = [id number] for DOE ALMAMONISHA DAVILA POCT-GLUCOSE [id number] 07:55:00 Test Item Value Reference Range Interpretation Comments POC-GLUCOSE METER 75 mg/dL 70-110 : TESTED A T [facility] 6720 (BEAKER) (test code = [facility], 153) 11985: Dimension Warehouse Supervisor/Techni estefani ID = [id number] for MONISHA BLANCHARD BASIC METABOLIC [id number] 05:59:00 Test Item Value Reference Range Interpretation [...] S NOT APPLICABLE FOR DIALYSIS PATIEN TS. Dimension Warehouse Supervisor ID - EDASIPOCT-GLUCOSE [id number] 19:48:00 Test Item Value Reference Range Interpretation Comments POC-GLUCOSE METER 133 mg/dL 70-110 H : TESTED A T [facility] 6720 (BEAKER) (test code = [facility], 153) 20091: Dimension Warehouse Supervisor/Techni estefani ID = [id number] for MALGORZATA MORRISON (V)CHRIS POCT-GLUCOSE [id number] 16:50:00 Test Item Value Reference Range Interpretation Comments POC-GLUCOSE METER 106 mg/dL 70-110 : TESTED A T [facility] 6720 (BEAKER) (test code = [facility], 153) 82970: Dimension Warehouse Supervisor/Techni estefani ID = [id number] for GISELA JACINTO, SHABNAM POCT-GLUCOSE [id number] 11:54:00 Test Item Value Reference Range Interpretation Comments POC-GLUCOSE METER 104 mg/dL 70-110 : TESTED A T [facility] 6720 (BEAKER) (test code = DASIA Garcia [facility], 1538) 06162: Dimension Warehouse Supervisor/Techni estefani ID = [id number] for SHABNAM JOSE POCT-GLUCOSE [id number] 07:53:00 Test Item Value Reference Range Interpretation Comments POC-GLUCOSE METER 88 mg/dL 70-110 : PrevTst on Ambulance: (BEAKER) (test code = TESTED AT [facility] 6720 1538) SHENA [facility], [address]: Dimension Warehouse Supervisor/Techni estefani ID = [id number] for SHABNAM KUMAR BASIC METABOLIC [id number] 04:56:00 Test Item Value Reference Range Interpretation [...] S NOT APPLICABLE FOR DIALYSIS PATIEN TS. Dimension Warehouse Supervisor ID - EDASICBC W/PLT COUNT & AUTO [id number] 04:15:00 Test Item Value Reference Range Interpretation [...] PERCENT (BEAKER) (test code = 2801) POCT-GLUCOSE [id number] 20:55:00 Test Item Value Reference Range Interpretation Comments POC-GLUCOSE METER 128 mg/dL 70-110 H : TESTED A T [facility] 6720 (BEAKER) (test code = [place], 1538) 33560: Dimension Warehouse Supervisor/Techni estefani ID = [id number] for FE RNANDO (V), KARI POCT-GLUCOSE [id number] 17:32:00 Test Item Value Reference Range Interpretation Comments POC-GLUCOSE METER 116 mg/dL 70-110 H : TESTED A T [facility] 6720 (BEAKER) ([place], [address]: code = 1538) Dimension Warehouse Supervisor/Techni estefani ID = [id number] for [place] SINDI LEÓN IN HEPATITIS B SURFACE [id number] 07:59:00 Test Item Value Reference Range Interpretation Comments HEPATITIS B SURFACE ANTIBODY < mIU/mL <8.0 (BEAKER) (test code = 647) Dimension Warehouse Supervisor ID - ADMINBASIC METABOLIC [id number] 06:46:00 Test Item Value Reference Range Interpretation [...] S NOT APPLICABLE FOR DIALYSIS PATIEN TS. Dimension Warehouse Supervisor ID - ADMINCBC W/PLT COUNT & AUTO [id number] 05:21:00 Test Item Value Reference Range Interpretation [...] 0-1 PERCENT (BEAKER) (test code = 2801) HEPATITIS B CORE ANTIBODY, [id number] 03:01:00 Test Item Value Reference Range Interpretation Comments HEPATITIS B CORE TOTAL ANTIBODY Nonreactive Nonreactive (BEAKER) (test code = 497) Dimension Warehouse Supervisor ID - ADMINPOCT-GLUCOSE [id number] 22:59:00 Test Item Value Reference Range Interpretation Comments POC-GLUCOSE METER 110 mg/dL 70-110 : TESTED A T [facility] 6720 [facility] (test code = DASIA Garcia [facility], 1538) 22879: Dimension Warehouse Supervisor/Techni estefani ID = [id number] for Avery Levy POCT-GLUCOSE [id number] 12:01:00 Test Item Value Reference Range Interpretation Comments POC-GLUCOSE METER 107 mg/dL 70-110 : Notified RN/MD: (BEAKER) (test code = TESTED AT [facility] 6720 1538) [facility], [address]: Dimension Warehouse Supervisor/Techni estefani ID = [id number] for HADLEY MELISSA POCT-GLUCOSE [id number] 07:44:00 Test Item Value Reference Range Interpretation Comments POC-GLUCOSE METER 95 mg/dL 70-110 : Notified RN/MD: TESTED (BEAKER) (test code = AT [facility] 6720 [facility] 1538) [facility], 770 30: Dimension Warehouse Supervisor/Techni estefani ID = [id number] for HADLEY ARGUELLO BASIC METABOLIC [id number] 07:25:00 Test Item Value Reference Range Interpretation [...] S NOT APPLICABLE FOR DIALYSIS PATIEN TS. Dimension Warehouse Supervisor ID - MAR CCBC W/PLT COUNT & AUTO [id number] 04:39:00 Test Item Value Reference Range Interpretation [...] PERCENT (BEAKER) (test code = 2801) POCT-GLUCOSE [id number] 22:19:00 Test Item Value Reference Range Interpretation Comments POC-GLUCOSE METER 115 mg/dL 70-110 H : TESTED A T [facility] 6720 (BEAKER) (test code = [facility], 1538) 79738: Dimension Warehouse Supervisor/Techni estefani ID = [id number] for Wi llia, Surinderelia POCT-GLUCOSE [id number] 16:56:00 Test Item Value Reference Range Interpretation Comments POC-GLUCOSE METER 106 mg/dL 70-110 : TESTED A T [facility] 6720 (BEAKER) (test code = [facility], 1538) 15485: Dimension Warehouse Supervisor/Techni estefani ID = [id number] for ANNMARIE PENNINGTON POCT-GLUCOSE [id number] 12:23:00 Test Item Value Reference Range Interpretation Comments POC-GLUCOSE METER 130 mg/dL 70-110 H : TESTED A T [facility] 6720 (BEAKER) (test code = [facility] [employer] [facility], 1538) 88275: Dimension Warehouse Supervisor/Techni estefani ID = [id number] for ANNMARIE PENNINGTON POCT-GLUCOSE [id number] 09:12:00 Test Item Value Reference Range Interpretation Comments POC-GLUCOSE METER 96 mg/dL 70-110 : TESTED A T [facility] 6720 (BEAKER) (test code = [facility], 1538) 42458: Dimension Warehouse Supervisor/Techni estefani ID = [id number] for LIZZ ER, STEVE BASIC METABOLIC [id number] 06:45:00 Test Item Value Reference Range Interpretation [...] S NOT APPLICABLE FOR DIALYSIS PATIEN TS. Dimension Warehouse Supervisor ID - JAQUELINE MCBC W/PLT COUNT & AUTO [id number] 05:59:00 Test Item Value Reference Range Interpretation [...] PERCENT (BEAKER) (test code = 2801) POCT-GLUCOSE [id number] 22:30:00 Test Item Value Reference Range Interpretation Comments POC-GLUCOSE METER 126 mg/dL 70-110 H : TESTED A T [facility] 6720 (BEAKER) (test code = [facility], 153) 43639: Dimension Warehouse Supervisor/Techni estefani ID = [id number] for Wi alyciaiams, Otelia ANAEROBIC [id number] 19:52:00 Test Item Value Reference Range Interpretation Comments CULTURE (BEAKER) (test No anaerobes isolated code = 1095) ANAEROBIC [id number] 19:52:00 Test Item Value Reference Range Interpretation Comments CULTURE (BEAKER) (test No anaerobes isolated code = 1095) POCT-GLUCOSE [id number] 16:58:00 Test Item Value Reference Range Interpretation Comments POC-GLUCOSE METER 103 mg/dL 70-110 : TESTED A T [facility] 6720 (BEAKER) (test code = [facility], 153) 17828: Dimension Warehouse Supervisor/Techni estefani ID = [id number] for LO PEZ, EVONNE VIAL POCT-GLUCOSE [id number] 11:48:00 Test Item Value Reference Range Interpretation Comments POC-GLUCOSE METER 140 mg/dL 70-110 H : TESTED A T [facility] 6720 (BEAKER) (test code = [facility], 153) 74063: Dimension Warehouse Supervisor/Techni estefani ID = [id number] for Ca dararoll, Olga POCT-GLUCOSE [id number] 07:22:00 Test Item Value Reference Range Interpretation Comments POC-GLUCOSE METER 96 mg/dL 70-110 : TESTED A T [facility] 6720 (BEAKER) (test code = [facility] [place], 1538) 80946: Dimension Warehouse Supervisor/Techni estefani ID = [id number] for Ambar Dominguez (cont ract) BASIC METABOLIC [id number] 06:35:00 Test Item Value Reference Range Interpretation [...] S NOT APPLICABLE FOR DIALYSIS PATIEN TS. Dimension Warehouse Supervisor ID - EDASICBC W/PLT COUNT & AUTO [id number] 06:02:00 Test Item Value Reference Range Interpretation [...] PERCENT (BEAKER) (test code = 2801) POCT-GLUCOSE [id number] 22:01:00 Test Item Value Reference Range Interpretation Comments POC-GLUCOSE METER 151 mg/dL 70-110 H : TESTED A T [facility] 6720 (BEAKER) (test code = [facility], 153) 35826: Dimension Warehouse Supervisor/Techni estefani ID = [id number] for MARCY MUIR POCT-GLUCOSE [id number] 17:02:00 Test Item Value Reference Range Interpretation Comments POC-GLUCOSE METER 121 mg/dL 70-110 H : TESTED A T [facility] 6720 (BEAKER) (test code = [facility], 153) 57041: Dimension Warehouse Supervisor/Techni estefani ID = [id number] for EDSON EMJIA POCT-GLUCOSE [id number] 10:53:00 Test Item Value Reference Range Interpretation Comments POC-GLUCOSE METER 114 mg/dL 70-110 H : TESTED A T [facility] 6720 (BEAKER) (test code = DASIA Garcia [place], 1538) 82624: Dimension Warehouse Supervisor/Techni estefani ID = [id number] for EDSON MEJIA SURGICALLY OBTAINED CULTURE + GRAM [id number] 09:02:00 Test Item Value Reference Range Interpretation Comments CULTURE (BEAKER) SAME ORGANISM HAS A 1+ Garrett e organism (test code = BEEN ISOLATED FROM has been isolated 109) CULTURES(S) OF THE from cult ures(s) of SAME BODY SITE the same body site WITHIN 3 DAYS. within 3 days . REPEAT Repeat IDENTIFICATION AND identific ation and SUSCEPT. TESTING susceptibil ity PERFORMED ONLY testing perfo rmed AFTER CONSULTATION only afte r WITH THE CLINICAL consultati on with MICROBIOLOGY LAB the [facility] microbiology laboratory.Refe r to previous cultur e ofPseudomonas aeruginosa Ceftazidime/Avib S actam (test code = 250) Ceftolozane/Tazo S bactam (test code = 249) Meropenem/Vaborb actam (test code = 253) CULTURE (BEAKER) A <1+ Escheri cayden (test code = coliNon-viable for 1095) susceptibility CULTURE (BEAKER) VANCOMYCIN A <1+ Vancomy greyson (test code = RESISTANT resistant 1095) ENTEROCOCCUS Enterococcus FAECIUM faecium Ampicillin (test R code = 26) Linezolid (test S code = 40) Vancomycin (test R code = 13) Daptomycin (test Susceptible >4-4 code = 59) , Dose Dependent Susceptible <=4 or >4 , Re GRAM STAIN No white blood RESULT (BEAKER) cells seen (test code = 1123) GRAM STAIN <1+ gram negative RESULT (BEAKER) rods (test code = 030033) POCT-GLUCOSE [id number] 07:42:00 Test Item Value Reference Range Interpretation Comments POC-GLUCOSE METER 85 mg/dL 70-110 : TESTED A T [facility] 6720 (BEAKER) (test code = DASAI Garcia [place], 1538) 28346: Dimension Warehouse Supervisor/Techni estefani ID = [id number] for SHARRI LGO, AGLAE BASIC METABOLIC [id number] 06:13:00 Test Item Value Reference Range Interpretation [...] S NOT APPLICABLE FOR DIALYSIS PATIEN TS. Dimension Warehouse Supervisor ID - EDASICBC W/PLT COUNT & AUTO [id number] 05:33:00 Test Item Value Reference Range Interpretation [...] PERCENT (BEAKER) (test code = 2801) POCT-GLUCOSE [id number] 22:55:00 Test Item Value Reference Range Interpretation Comments POC-GLUCOSE METER 91 mg/dL 70-110 : TESTED A T [facility] 6720 (BEAKER) (test code = DASIA Garcia [facility], 153) 37082: Dimension Warehouse Supervisor/Techni estefani ID = [id number] for DARRELL LUDWIG POCT-GLUCOSE [id number] 16:20:00 Test Item Value Reference Range Interpretation Comments POC-GLUCOSE METER 123 mg/dL 70-110 H : TESTED A T [facility] 6720 (BEAKER) (test code = DASIA Garcia [facility], 153) 61849: Dimension Warehouse Supervisor/Techni estefani ID = [id number] for YAAKOV SNEEDAN POCT-GLUCOSE [id number] 11:41:00 Test Item Value Reference Range Interpretation Comments POC-GLUCOSE METER 142 mg/dL 70-110 H : TESTED A T [facility] 6720 (BEAKER) (test code = DASIA Garcia [place], 1538) 89981: Dimension Warehouse Supervisor/Techni estefani ID = [id number] for REJI SNEED POCT-GLUCOSE [id number] 09:19:00 Test Item Value Reference Range Interpretation Comments POC-GLUCOSE METER 115 mg/dL 70-110 H : TESTED A T [facility] 6720 (BEAKER) (test code = [facility] Jose [facility], 1538) 11107: Dimension Warehouse Supervisor/Techni estefani ID = [id number] for REJI SNEED BASIC METABOLIC [id number] 06:17:00 Test Item Value Reference Range Interpretation [...] S NOT APPLICABLE FOR DIALYSIS PATIEN TS. Dimension Warehouse Supervisor ID - JAQUELINE MCBC W/PLT COUNT & AUTO [id number] 05:08:00 Test Item Value Reference Range Interpretation [...] PERCENT (BEAKER) (test code = 2801) POCT-GLUCOSE [id number] 21:32:00 Test Item Value Reference Range Interpretation Comments POC-GLUCOSE METER 138 mg/dL 70-110 H : TESTED A T [facility] 6720 (BEAKER) (test code = [place], 1538) 75972: Dimension Warehouse Supervisor/Techni estefani ID = [id number] for HALI GARCIA SARS-COV2/RT-PCR ([facility])2020-01-13 16:42:00 Test Item Value Reference Range Interpretation Comments SARS-COV2/RT-PCR (test Negative Not Detected, Negative, code = 9817377) See external report for linked test SARS-COV-2 PERFORMING LAB [facility] (test code = 2556570) Negative result for this test determines that [...] Giles SARS-CoV-2 assay.Fact Sheet for Healthcare Providers:https://www.molecular.giles/ari/ XG_QAIG-WwS-0_LTN_Nisi_Wemje_16-787381.pdfFact Sheet for Healthcare Patients:https://www.Viragen.ab radha/ari/AF_JAJW-AvC-6_Txgwdoo_Sqde_Hmfiq_ZA_79-648759N3.pdfPerforming Laboratory:[facility] [place] [address] POCT-GLUCOSE [id number] 15:53:00 Test Item Value Reference Range Interpretation Comments POC-GLUCOSE METER 177 mg/dL 70-110 H : TESTED A T [facility] 6720 (BEAKER) ([place], [address]: code = 1538) Dimension Warehouse Supervisor/Techni estefani ID = [id number] for VINNY SANCHEZR IN POCT-GLUCOSE [id number] 11:29:00 Test Item Value Reference Range Interpretation Comments POC-GLUCOSE METER 132 mg/dL 70-110 H : TESTED A T [facility] 6720 (BEAKER) ([place], [address]: code = 1538) Dimension Warehouse Supervisor/Techni estefani ID = [id number] for VINNY SANCHEZR IN SURGICALLY OBTAINED CULTURE + GRAM [id number] 08:54:00 Test Item Value Reference Range Interpretation Comments CULTURE (BEAKER) A 1+ Same org anism has been (test code = 1095) isolated from cultures(s) of the same bod y site within 3 days. Repeat identification and susceptibility testing performed only after consultation wi th the clinical microb iology laboratory.Refe r to previous cultur e ofPseudomonas a eruginosa POCT-GLUCOSE [id number] 07:31:00 Test Item Value Reference Range Interpretation Comments POC-GLUCOSE METER 124 mg/dL 70-110 H : TESTED A T [facility] 6720 (BEAKER) ([place], [address]: code = 1538) Dimension Warehouse Supervisor/Techni estefani ID = [id number] for VINNY SANCHEZR IN POCT-GLUCOSE [id number] 22:46:00 Test Item Value Reference Range Interpretation Comments POC-GLUCOSE METER 185 mg/dL 70-110 H : TESTED A T [facility] 6720 (BEAKER) (test code = DASIA Garcia [place], 1538) 73[address]: Dimension Warehouse Supervisor/Techni estefani ID = [id number] for ALLA MONTOYA POCT-GLUCOSE [id number] 16:38:00 Test Item Value Reference Range Interpretation Comments POC-GLUCOSE METER 153 mg/dL 70-110 H : TESTED A T [facility] 6720 (BEAKER) (test code = DASIA Garcia [facility], 1538) 36043: Dimension Warehouse Supervisor/Techni estefani ID = [id number] for HADLEY MELISSA POCT-GLUCOSE [id number] 12:15:00 Test Item Value Reference Range Interpretation Comments POC-GLUCOSE METER 151 mg/dL 70-110 H : Notified RN/MD: (BEAKER) (test code = TESTED AT [facility] 6720 1538) SHE[place] [facility], [address]: Dimension Warehouse Supervisor/Techni estefani ID = [id number] for HADLEY MELISSA WOUND CULTURE + GRAM [id number] 09:32:00 Test Item Value Reference Range Interpretation Comments CULTURE (BEAKER) PSEUDOMONAS A <1+ Pseudom onas (test code [...] No organisms seen (BEAKER) (test code = 931087) POCT-GLUCOSE [id number] 07:11:00 Test Item Value Reference Range Interpretation Comments POC-GLUCOSE METER 121 mg/dL 70-110 H : Notified RN/MD: (BEAKER) (test code = TESTED AT [facility] 2897 0097) [place], [address]: Dimension Warehouse Supervisor/Techni estefani ID = [id number] for HADLEY MELISSA BASIC METABOLIC [id number] 05:27:00 Test Item Value Reference Range Interpretation [...] S NOT APPLICABLE FOR DIALYSIS PATIEN TS. Dimension Warehouse Supervisor ID - EDASICBC W/PLT COUNT & AUTO [id number] 04:50:00 Test Item Value Reference Range Interpretation [...] PERCENT (BEAKER) (test code = 2801) POCT-GLUCOSE [id number] 21:56:00 Test Item Value Reference Range Interpretation Comments POC-GLUCOSE METER 196 mg/dL 70-110 H : [facility]ER[facility] (test code = [place], 1538) [address]: Dimension Warehouse Supervisor/Techni estefani ID = [id number] for JOSHUA GONZALEZ BLOOD [id number] 17:00:00 Test Item Value Reference Range Interpretation Comments CULTURE (BEAKER) (test No growth in 5 days code = 1095) BLOOD [id number] 17:00:00 Test Item Value Reference Range Interpretation Comments CULTURE (BEAKER) (test No growth in 5 days code = 1095) POCT-GLUCOSE [id number] 15:32:00 Test Item Value Reference Range Interpretation Comments POC-GLUCOSE METER 132 mg/dL 70-110 H : TESTED A T [facility] 6720 (BEAKER) (test code = [facility], 1538) 10263: Dimension Warehouse Supervisor/Techni estefani ID = [id number] for Juliano Aleman SPIN/CONCENTRATION [id number] 14:39:00 Test Item Value Reference Range Interpretation Comments CONCENTRATION CHARGED (BEAKER) (test Done code = 2657) SPIN/CONCENTRATION [id number] 14:39:00 Test Item Value Reference Range Interpretation Comments CONCENTRATION CHARGED (BEAKER) (test Done code = 2657) POCT-GLUCOSE [id number] 13:00:00 Test Item Value Reference Range Interpretation Comments POC-GLUCOSE METER 187 mg/dL 70-110 H : TESTED A T [facility] 6720 (BEAKER) (test code = [facility], 1538) 75905: Dimension Warehouse Supervisor/Techni estefani ID = [id number] for Juliano Aleman [id number] 11:53:00 Test Item Value Reference Range Interpretation Comments PHOSPHORUS (BEAKER) (test code = 2.9 mg/dL 2.3-4.7 604) Dimension Warehouse Supervisor ID - ADMINPOCT-GLUCOSE [id number] 09:45:00 Test Item Value Reference Range Interpretation Comments POC-GLUCOSE METER 117 mg/dL 70-110 H : TESTED A T [facility] 6720 (BEAKER) (test code = [facility], 1538) 65414: Dimension Warehouse Supervisor/Techni estefani ID = [id number] for LISA DALLAS BASIC METABOLIC [id number] 05:46:00 Test Item Value Reference Range Interpretation [...] S NOT APPLICABLE FOR DIALYSIS PATIEN TS. Dimension Warehouse Supervisor ID - ADMINCBC W/PLT COUNT & AUTO [id number] 05:13:00 Test Item Value Reference Range Interpretation [...] PERCENT (BEAKER) (test code = 2801) POCT-GLUCOSE [id number] 22:36:00 Test Item Value Reference Range Interpretation Comments POC-GLUCOSE METER 214 mg/dL 70-110 H : TESTED A T [facility] 6720 (BEAKER) (test code = [facility], [facility]) [address]: Dimension Warehouse Supervisor/Techni estefani ID = [id number] for JOSHUA GONZALEZ POCT-GLUCOSE [id number] 19:08:00 Test Item Value Reference Range Interpretation Comments POC-GLUCOSE METER 106 mg/dL 70-110 : TESTED A T [facility] 6720 (BEAKER) (test code = [facility], 153) 53810: Dimension Warehouse Supervisor/Techni estefani ID = [id number] for NICOLE ANNA MARIEVAHIDROSE POCT-GLUCOSE [id number] 12:38:00 Test Item Value Reference Range Interpretation Comments POC-GLUCOSE METER 114 mg/dL 70-110 H : TESTED A T [facility] (BEAKER) (test code = [facility], 153) [id number]: [employer] Supervisor/Techni estefani ID = [id number] for KHADRA SKELTON POCT-GLUCOSE [id number] 10:42:00 Test Item Value Reference Range Interpretation Comments POC-GLUCOSE METER 121 mg/dL 70-110 H : TESTED A T [facility] (BEAKER) (test code = [facility], 153) 39994: [employer] Supervisor/Techni estefani ID = [id number] for KHADRA SKELTON BASIC METABOLIC [id number] 06:21:00 Test Item Value Reference Range Interpretation [...] S NOT APPLICABLE FOR DIALYSIS PATIEN TS. [employer] Supervisor ID - JAQUELINE [id number] 06:18:00 Test Item Value Reference Range Interpretation Comments PHOSPHORUS (BEAKER) (test code = 2.6 mg/dL 2.3-4.7 604) [employer] Supervisor ID - JAQUELINE [facility] W/PLT COUNT & AUTO [id number] 05:50:00 Test Item Value Reference Range Interpretation [...] PERCENT (BEAKER) (test code = 2801) POCT-GLUCOSE [id number] 21:36:00 Test Item Value Reference Range Interpretation Comments POC-GLUCOSE METER 158 mg/dL 70-110 H : TESTED A T [facility] 6720 (BEAKER) (test code [facility], = 1538) 06341: Dimension Warehouse Supervisor/Techni estefani ID = [id number] for ROMULO MCLEAN POCT-GLUCOSE [id number] 17:12:00 Test Item Value Reference Range Interpretation Comments POC-GLUCOSE METER 212 mg/dL 70-110 H : TESTED A T [facility] 6720 (BEAKER) (test code = [facility], 1538) 91853: Dimension Warehouse Supervisor/Techni estefani ID = [id number] for OL MOS, SUREKHA POCT-GLUCOSE [id number] 11:24:00 Test Item Value Reference Range Interpretation Comments POC-GLUCOSE METER 159 mg/dL 70-110 H : TESTED A T [facility] 6720 (BEAKER) (test code = [facility] Jose [facility], 1538) 33920: Dimension Warehouse Supervisor/Techni estefani ID = [id number] for OL MOS, SUREKHA POCT-GLUCOSE [id number] 10:21:00 Test Item Value Reference Range Interpretation Comments POC-GLUCOSE METER 111 mg/dL 70-110 H : TESTED A T [facility] 6720 (BEAKER) (test code = [facility] Jose [facility], 1538) 47478: Dimension Warehouse Supervisor/Techni estefani ID = [id number] for [facility] BASIC METABOLIC [id number] 05:04:00 Test Item Value Reference Range Interpretation [...] S NOT APPLICABLE FOR DIALYSIS PATIEN TS. Dimension Warehouse Supervisor ID - JAQUELINE [id number] 04:57:00 Test Item Value Reference Range Interpretation Comments MAGNESIUM (BEAKER) (test code = 2.0 mg/dL 1.6-2.6 627) Dimension Warehouse Supervisor ID - JAQUELINE [id number] 04:57:00 Test Item Value Reference Range Interpretation Comments PHOSPHORUS (BEAKER) (test code = 2.5 mg/dL 2.3-4.7 604) Dimension Warehouse Supervisor ID - JAQUELINE [facility] W/PLT COUNT & AUTO [id number] 04:37:00 Test Item Value Reference Range Interpretation [...] PERCENT (BEAKER) (test code = 2801) POCT-GLUCOSE [id number] 22:46:00 Test Item Value Reference Range Interpretation Comments POC-GLUCOSE METER 163 mg/dL 70-110 H : TESTED A T [facility] 6720 (BEAKER) (test code = [facility], 1538) 02243: Dimension Warehouse Supervisor/Techni estefani ID = [id number] for RE TUYET SALINAS POCT-GLUCOSE [id number] 16:09:00 Test Item Value Reference Range Interpretation Comments POC-GLUCOSE METER 141 mg/dL 70-110 H : TESTED A T [facility] 6720 (BEAKER) (test code = [facility], 1538) 22148: Dimension Warehouse Supervisor/Techni estefani ID = [id number] for Wi llis, Tabby POCT-GLUCOSE [id number] 11:19:00 Test Item Value Reference Range Interpretation Comments POC-GLUCOSE METER 119 mg/dL 70-110 H : TESTED A T [facility] 6720 (BEAKER) (test code = [facility], 1538) 67144: Dimension Warehouse Supervisor/Techni estefani ID = [id number] for Wi llis, Tabby POCT-GLUCOSE [id number] 08:29:00 Test Item Value Reference Range Interpretation Comments POC-GLUCOSE METER 102 mg/dL 70-110 : TESTED A T [facility] 6720 (BEAKER) (test code = [facility], 1538) 58465: Dimension Warehouse Supervisor/Techni estefani ID = [id number] for ARCELIA SUAZO [id number] 06:50:00 Test Item Value Reference Range Interpretation Comments FERRITIN (BEAKER) (test code = 623.64 ng/mL 5.00-275.00 H 361) Dimension Warehouse Supervisor ID - ADMINIRON, TIBC, % SAT. (WITHOUT FERRITIN)2020-01-08 06:28:00 Test Item Value Reference Range Interpretation Comments IRON (BEAKER) (test code = 547) 17.0 ug/dL 40.0-160.0 L TOTAL IRON BINDING CAPACITY 128 ug/dL 250-450 L (BEAKER) (test code = 769) IRON % SATURATION (2) (BEAKER) 13 % 20-55 L (test code = 2590) Dimension Warehouse Supervisor ID - ADMINVANCOMYCIN LEVEL, [id number] 06:26:00 Test Item Value Reference Range Interpretation Comments VANCOMYCIN RANDOM (BEAKER) (test 20.4 ug/mL code = 523) Reference Range: No NormalsOperator ID - ADMINBASIC METABOLIC [id number] 02:21:00 Test Item Value Reference Range Interpretation [...] S NOT APPLICABLE FOR DIALYSIS PATIEN TS. Dimension Warehouse Supervisor ID - [id number] 02:09:00 Test Item Value Reference Range Interpretation Comments MAGNESIUM (BEAKER) (test code = 1.8 mg/dL 1.6-2.6 627) Dimension Warehouse Supervisor ID - [id number] 02:09:00 Test Item Value Reference Range Interpretation Comments PHOSPHORUS (BEAKER) (test code = 2.4 mg/dL 2.3-4.7 604) Dimension Warehouse Supervisor ID - [id number] 02:06:00 Test Item Value Reference Range Interpretation Comments PARTIAL THROMBOPLASTIN TIME 46.2 seconds 22.5-36.0 H (BEAKER) (test code = 760) PROTHROMBIN [id number] 02:05:00 Test Item Value Reference Range Interpretation [...] mechanical heart valves.CBC W/PLT COUNT & AUTO [id number] 02:03:00 Test Item Value Reference Range Interpretation [...] PERCENT (BEAKER) (test code = 2801) POCT-GLUCOSE [id number] 00:26:00 Test Item Value Reference Range Interpretation Comments POC-GLUCOSE METER 118 mg/dL 70-110 H : TESTED A T [facility] 6720 (BEAKER) (test code = [facility], 153) 45922: Dimension Warehouse Supervisor/Techni estefani ID = [id number] for Ez ennelson, Laura POCT-GLUCOSE [id number] 16:33:00 Test Item Value Reference Range Interpretation Comments POC-GLUCOSE METER 154 mg/dL 70-110 H : TESTED A T [facility] 6720 (BEAKER) (test code = [facility], 153) 55577: Dimension Warehouse Supervisor/Techni estefani ID = [id number] for CO X, RADHA POCT-GLUCOSE [id number] 13:11:00 Test Item Value Reference Range Interpretation Comments POC-GLUCOSE METER 169 mg/dL 70-110 H : TESTED A T [facility] 6720 (BEAKER) (test code = [facility], 153) 08033: Dimension Warehouse Supervisor/Techni estefani ID = [id number] for Me Celi noble CBC W/PLT COUNT & AUTO [id number] 10:36:00 Test Item Value Reference Range Interpretation [...] PERCENT (BEAKER) (test code = 2801) POCT-GLUCOSE [id number] 07:59:00 Test Item Value Reference Range Interpretation Comments POC-GLUCOSE METER 107 mg/dL 70-110 : TESTED A T [facility] 6720 (BEAKER) (test code = [facility] [place], 1538) 47472: Dimension Warehouse Supervisor/Techni estefani ID = [id number] for RADHA SHELTON BASIC METABOLIC [id number] 07:01:00 Test Item Value Reference Range Interpretation [...] S NOT APPLICABLE FOR DIALYSIS PATIEN TS. Dimension Warehouse Supervisor ID - ANTONY [id number] 07:00:00 Test Item Value Reference Range Interpretation Comments MAGNESIUM (BEAKER) (test code = 1.9 mg/dL 1.6-2.6 627) Dimension Warehouse Supervisor ID - ANTONY [id number] 07:00:00 Test Item Value Reference Range Interpretation Comments PHOSPHORUS (BEAKER) (test code = 4.4 mg/dL 2.3-4.7 604) Dimension Warehouse Supervisor ID - ANTONY FVANCOMYCIN LEVEL, [id number] 06:30:00 Test Item Value Reference Range Interpretation Comments VANCOMYCIN RANDOM (BEAKER) (test 16.1 ug/mL code = 523) Reference Range: No NormalsOperator ID - EDASICBC W/PLT COUNT & AUTO [id number] 05:53:00 Test Item Value Reference Range Interpretation [...] 417) IMMATURE GRANULOCYTES-RELATIVE 0 % 0-1 PERCENT (NOE) (test code = 2801) POCT-GLUCOSE [id number] 23:03:00 Test Item Value Reference Range Interpretation Comments POC-GLUCOSE METER 144 mg/dL 70-110 H : TESTED A T [facility] 6720 (NOE) (test code = [facility] [place], 1538) 84738: Dimension Warehouse Supervisor/Techni estefani ID = [id number] for Pamela Ortiz SARS-COV2/RT-PCR ([facility])2020-01-06 21:26:00 Test Item Value Reference Range Interpretation Comments SARS-COV2/RT-PCR (test code Negative Not Detected, Negative, = 9051171) See external report for linked test SARS-COV-2 PERFORMING LAB [facility] (test code = 2465976) Negative results do not preclude SARS-CoV-2 infection [...] of the Act.Fact Sheet for Healthcare Pro viders:https://www.Hubba/Documents/Xpert%20Xpress%20SARS%20CoV-2/Fact%20Sh eets/302-5183%66FVMY-UUI-1%20HEALTHCARE%20PROVIDERS%20FACT%20SHEET.pdfFact Sheet for Healthcare Patients:https://www.cephe id.com/Documents/Xpert%20Xpress%20SARS%20CoV-2/Fact%20Sheets/302-3801%20SARS-COV -2%20PATIENT%20FACT%20SHEET.pdfPerforming Laboratory:[facility], [place] [address]WBNGJX ACID, [id number] 20:26:00 Test Item Value Reference Range Interpretation Comments LACTATE BLOOD VENOUS (2) (BEAKER) 0.61 mmol/L 0.50-2.20 (test code = 2872) Dimension Warehouse Supervisor ID - DBRAPID INFLUENZA A&B [id number] 20:15:00 Test Item Value Reference Range Interpretation Comments RAPID INFLUENZA A AG (BEAKER) Negative Negative, Inconclusive (test code = 1622) RAPID INFLUENZA B AG (BEAKER) Negative Negative, Inconclusive (test code = 1623) RAD, CHEST, 1 VIEW, NON [id number] 17:48:00Reason for exam:->FEVERReason for exam:->EMESISReason for exam:->WOUND CHECKShould this be performed at the bedside?->Yes [facility] 1960 Sex: MFINAL REPORT [...] MDReport Verified Date/Time: 01/06/2020 17:48:53 Reading Location: [facility] C013Y CT Body Reading Room RAD, FOOT, MIN 3 VIEWS, RIGHT 2020-01-06 17:48:00Reason for exam:->FEVERReason for exam:->EMESISReason for exam:->WOUND CHECK [facility] : 1960 Sex: MFINAL REPORT [...] MDReport Verified Date/Time: 01/06/2020 17:48:53 Reading Location: [facility] C013Y CT Body Reading Room (CELLAVISION MANUAL DIFF) 2020-01-06 17:30:00 Test Item Value Reference Range Interpretation [...] CONCENTRATION Adequate (CELLAVISION)(BEAKER) (test code = 3438) Dimension Warehouse Supervisor ID - ruth ann Amin comments: Slide comments:[id number] 17:24:00 Test Item Value Reference Range Interpretation Comments PARTIAL THROMBOPLASTIN TIME 37.5 seconds 22.5-36.0 H (BEAKER) (test code = 760) POCT-GLUCOSE [id number] 17:23:00 Test Item Value Reference Range Interpretation Comments POC-GLUCOSE METER 145 mg/dL 70-110 H : Notified RN/MD: (BEAKER) (test code = TESTED AT [facility] 0931 8538) [facility], 93411: Dimension Warehouse Supervisor/Techni estefani ID = [id number] for ROMAIN REEVES PROTHROMBIN [id number] 17:23:00 Test Item Value Reference Range Interpretation [...] for patients wiht mechanical heart valves.HEPATIC FUNCTION [id number] 17:01:00 Test Item Value Reference Range Interpretation [...] (test code = 8 U/L 6-55 347) Dimension Warehouse Supervisor ID - EDASIBASIC METABOLIC [id number] 17:01:00 Test Item Value Reference Range Interpretation [...] S NOT APPLICABLE FOR DIALYSIS PATIEN TS. Dimension Warehouse Supervisor ID - EDASILACTIC ACID, [id number] 17:01:00 Test Item Value Reference Range Interpretation Comments LACTATE BLOOD VENOUS (2) (BEAKER) 1.36 mmol/L 0.50-2.20 (test code = 2872) Dimension Warehouse Supervisor ID - EDASICBC W/PLT COUNT & AUTO [id number] 16:55:00 Test Item Value Reference Range Interpretation [...] 0-1 PERCENT (BEAKER) (test code = 2801) BLOOD GAS, [id number] 16:47:00 Test Item Value Reference Range Interpretation [...] FIO2 (BEAKER) (test code = 1819) 21.0 FUNGUS CULTURE + [id number] 17:16:00 Test Item Value Reference Range Interpretation Comments CULTURE (BEAKER) A <1+ Cami (test code = parapsilosis 1095) FUNGUS SMEAR No fungal (BEAKER) (test elements seen code = 1406) AFB CULTURE + SMEAR (NON-SPUTUM)2019-12-25 10:35:00 Test Item Value Reference Range Interpretation Comments CULTURE (BEAKER) (test No acid-fast bacilli code = 1095) isolated in 42 days AFB SMEAR (BEAKER) No acid fast bacilli (test code = 994) seen POCT-GLUCOSE [id number] 11:45:00 Test Item Value Reference Range Interpretation Comments POC-GLUCOSE METER 126 mg/dL 70-110 H : TESTED A T [facility] 6720 (BEAKER) (test code [facility], = 1538) 60466: Dimension Warehouse Supervisor/Techni estefani ID = [id number] for JOSELIN ESCALONA POCT-GLUCOSE [id number] 07:39:00 Test Item Value Reference Range Interpretation Comments POC-GLUCOSE METER 94 mg/dL 70-110 : TESTED A T [facility] 6720 (BEAKER) (test code = [facility] [place], 1538) 44401: Dimension Warehouse Supervisor/Techni estefani ID = [id number] for JOSELIN ESCALONA CBC W/PLT COUNT & AUTO [id number] 05:28:00 Test Item Value Reference Range Interpretation [...] (BEAKER) (test code = 2801) BASIC METABOLIC [id number] 05:25:00 Test Item Value Reference Range Interpretation [...] S NOT APPLICABLE FOR DIALYSIS PATIEN TS. Dimension Warehouse Supervisor ID - [id number] 05:03:00 Test Item Value Reference Range Interpretation Comments MAGNESIUM (BEAKER) (test code = 2.0 mg/dL 1.6-2.6 627) Dimension Warehouse Supervisor ID - DBPOCT-GLUCOSE [id number] 21:31:00 Test Item Value Reference Range Interpretation Comments POC-GLUCOSE METER 138 mg/dL 70-110 H : [facility] (test code = [facility] [place], 1538) 23680: Dimension Warehouse Supervisor/Techni estefani ID = [id number] for PHIL MURRELL TTE POCT-GLUCOSE [id number] 16:39:00 Test Item Value Reference Range Interpretation Comments POC-GLUCOSE METER 119 mg/dL 70-110 H : TESTED A T [facility] 6720 (BEAKER) (test code = [facility], 1538) 94843: Dimension Warehouse Supervisor/Techni estefani ID = [id number] for NEETA ROLLINS POCT-GLUCOSE [id number] 11:42:00 Test Item Value Reference Range Interpretation Comments POC-GLUCOSE METER 133 mg/dL 70-110 H : TESTED A T [facility] 6720 (BEAKER) (test code = [facility], 1538) 92245: Dimension Warehouse Supervisor/Techni estefani ID = [id number] for NEETA ROLLINS POCT-GLUCOSE [id number] 07:52:00 Test Item Value Reference Range Interpretation Comments POC-GLUCOSE METER 80 mg/dL 70-110 : TESTED A T [facility] 6720 (BEAKER) (test code = [facility], 1538) 50464: Dimension Warehouse Supervisor/Techni estefani ID = [id number] for NEETA ASHLEY HEPATITIS B SURFACE [id number] 07:04:00 Test Item Value Reference Range Interpretation Comments HEPATITIS B SURFACE ANTIGEN (2) Nonreactive Nonreactive (BEAKER) (test code = 2585) Specimen is considered negative for HBsAg.BASIC METABOLIC [id number] 06:35:00 Test Item Value Reference Range Interpretation [...] S NOT APPLICABLE FOR DIALYSIS PATIEN TS. Dimension Warehouse Supervisor ID - [id number] 06:26:00 Test Item Value Reference Range Interpretation Comments MAGNESIUM (BEAKER) (test code = 2.1 mg/dL 1.6-2.6 627) Dimension Warehouse Supervisor ID - DBCBC W/PLT COUNT & AUTO [id number] 06:10:00 Test Item Value Reference Range Interpretation [...] PERCENT (BEAKER) (test code = 2801) POCT-GLUCOSE [id number] 20:59:00 Test Item Value Reference Range Interpretation Comments POC-GLUCOSE METER 164 mg/dL 70-110 H : TESTED A T [facility] 6720 (BEAKER) (test code = [facility], 153) 08210: Dimension Warehouse Supervisor/Techni estefani ID = [id number] for PHIL MURRELL POCT-GLUCOSE [id number] 17:56:00 Test Item Value Reference Range Interpretation Comments POC-GLUCOSE METER 121 mg/dL 70-110 H : TESTED A T [facility] 6720 (BEAKER) (test code = [facility], 153) 42381: Dimension Warehouse Supervisor/Techni estefani ID = [id number] for NEETA ROLLINS POCT-GLUCOSE [id number] 14:21:00 Test Item Value Reference Range Interpretation Comments POC-GLUCOSE METER 152 mg/dL 70-110 H : TESTED A T [facility] 6720 (BEAKER) (test code = [facility], 1538) 89480: Dimension Warehouse Supervisor/Techni estefani ID = [id number] for KALLI BOOGIE POCT-GLUCOSE [id number] 12:50:00 Test Item Value Reference Range Interpretation Comments POC-GLUCOSE METER 134 mg/dL 70-110 H : TESTED A T [facility] 6720 (BEAKER) (test code = [facility], 1538) 09977: Dimension Warehouse Supervisor/Techni estefani ID = [id number] for NOAM GUADARRAMA, NEETA POCT-GLUCOSE [id number] 08:03:00 Test Item Value Reference Range Interpretation Comments POC-GLUCOSE METER 104 mg/dL 70-110 : TESTED A T [facility] 6720 (BEAKER) (test code = [facility], 1538) 17446: Dimension Warehouse Supervisor/Techni estefani ID = [id number] for NEETA ROLLINS BASIC METABOLIC [id number] 07:07:00 Test Item Value Reference Range Interpretation [...] S NOT APPLICABLE FOR DIALYSIS PATIEN TS. Dimension Warehouse Supervisor ID - [id number] 07:00:00 Test Item Value Reference Range Interpretation Comments MAGNESIUM (BEAKER) (test code = 1.9 mg/dL 1.6-2.6 627) Dimension Warehouse Supervisor ID - EDASICBC W/PLT COUNT & AUTO [id number] 06:15:00 Test Item Value Reference Range Interpretation [...] PERCENT (BEAKER) (test code = 2801) POCT-GLUCOSE [id number] 22:35:00 Test Item Value Reference Range Interpretation Comments POC-GLUCOSE METER 152 mg/dL 70-110 H : TESTED A T [facility] 6720 (BEAKER) (test code = [facility] [place] 1538) 53171: Dimension Warehouse Supervisor/Techni estefnai ID = [id number] for SUMAN FAM POCT-GLUCOSE [id number] 15:46:00 Test Item Value Reference Range Interpretation Comments POC-GLUCOSE METER 93 mg/dL 70-110 : TESTED A T [facility] 6720 (BEAKER) (test code = [facility] [place], 1538) 96537: Dimension Warehouse Supervisor/Techni estefani ID = [id number] for Avery Mendoza POCT-GLUCOSE [id number] 08:50:00 Test Item Value Reference Range Interpretation Comments POC-GLUCOSE METER 143 mg/dL 70-110 H : TESTED A T [facility] 6720 (BEAKER) (test code = DASIA Garcia [facility], 1538) 95012: Dimension Warehouse Supervisor/Techni estefani ID = [id number] for IAIN EASTON BASIC METABOLIC [id number] 06:41:00 Test Item Value Reference Range Interpretation [...] S NOT APPLICABLE FOR DIALYSIS PATIEN TS. Dimension Warehouse Supervisor ID - [id number] 06:40:00 Test Item Value Reference Range Interpretation Comments MAGNESIUM (BEAKER) (test code = 2.0 mg/dL 1.6-2.6 627) Dimension Warehouse Supervisor ID - EDASICBC W/PLT COUNT & AUTO [id number] 05:58:00 Test Item Value Reference Range Interpretation [...] PERCENT (BEAKER) (test code = 2801) SARS-COV2/RT-PCR ([facility])2019-12-21 00:21:00 Test Item Value Reference Range Interpretation Comments SARS-COV2/RT-PCR (test Negative Not Detected, Negative, code = 0846531) See external report for linked test SARS-COV-2 PERFORMING LAB [facility] KEELY (test code = 9517531) Negative result for this test determines that [...] 564(g) of the Act.Fact Sheet for Healthcare Providers:https://www.ActiveSecidel.com/sites/default/files/product/documents/Fact_Shee d_PE_Dgzlcduse_Mqsb_THLR-LzO-9.pdfFact Sheet for Healthcare Patients:https://www.ActiveSecidel.com/sites/default/files/product/ documents/Lamc_Hzrvd_Plmeufoq_Eovl_FRDX-TmA-2.pdfPerforming Laboratory:[facility], [place] [address]GAHL-JDPTWXQ METER 2019-12-20 20:53:00 Test Item Value Reference Range Interpretation Comments POC-GLUCOSE METER 180 mg/dL 70-110 H : Notified RN/MD: (BEAKER) (test code = [facility] 1538[facility], [address]: Dimension Warehouse Supervisor/Techni estefani ID = [id number] for ELMIRA LOPEZ POCT-GLUCOSE [id number] 16:41:00 Test Item Value Reference Range Interpretation Comments POC-GLUCOSE METER 167 mg/dL 70-110 H : TESTED A T [facility] 6720 (BEAKER) (test code [facility], = 1538) 75341: Dimension Warehouse Supervisor/Techni estefani ID = [id number] for WILS ON, JORGESTANIE POCT-GLUCOSE [id number] 12:02:00 Test Item Value Reference Range Interpretation Comments POC-GLUCOSE METER 158 mg/dL 70-110 H : TESTED A T [facility] 6720 (BEAKER) (test code [facility], = 1538) 81996: Dimension Warehouse Supervisor/Techni estefani ID = [id number] for WILS ON, SHASTANIE POCT-GLUCOSE [id number] 07:49:00 Test Item Value Reference Range Interpretation Comments POC-GLUCOSE METER 116 mg/dL 70-110 H : TESTED A T [facility] 6720 (BEAKER) (test code [facility], = 1538) 64826: Dimension Warehouse Supervisor/Techni estefani ID = [id number] for WILS ON, SHASTANIE BASIC METABOLIC [id number] 06:52:00 Test Item Value Reference Range Interpretation [...] S NOT APPLICABLE FOR DIALYSIS PATIEN TS. Dimension Warehouse Supervisor ID - JAQUELINE [id number] 06:40:00 Test Item Value Reference Range Interpretation Comments MAGNESIUM (BEAKER) (test code = 1.9 mg/dL 1.6-2.6 627) Dimension Warehouse Supervisor ID - JAQUELINE MCBC W/PLT COUNT & AUTO [id number] 05:53:00 Test Item Value Reference Range Interpretation [...] PERCENT (BEAKER) (test code = 2801) POCT-GLUCOSE [id number] 20:47:00 Test Item Value Reference Range Interpretation Comments POC-GLUCOSE METER 221 mg/dL 70-110 H : Notified RN/MD: ([facility]) (test code = TESTED AT [facility] 6720 1538) [facility], [address]: Dimension Warehouse Supervisor/Techni estefani ID = [id number] for KENROY LOPEZY ANAEROBIC [id number] 20:08:00 Test Item Value Reference Range Interpretation Comments CULTURE ([facility]) (test No anaerobes isolated code = 1095) POCT-GLUCOSE [id number] 16:36:00 Test Item Value Reference Range Interpretation Comments POC-GLUCOSE METER 190 mg/dL 70-110 H : [facility] ([facility]ER[facility] (test code [facility], = 1538) 67671: Dimension Warehouse Supervisor/Techni estefani ID = [id number] for WILS ON, JORGESTANIE POCT-GLUCOSE [id number] 09:20:00 Test Item Value Reference Range Interpretation Comments POC-GLUCOSE METER 106 mg/dL 70-110 : TESTED A T [facility] 6720 (BEAKER) (test code [facility], = 1538) 03827: Dimension Warehouse Supervisor/Techni estefani ID = [id number] for WILS ON, SHASTANIE BASIC METABOLIC [id number] 05:49:00 Test Item Value Reference Range Interpretation [...] S NOT APPLICABLE FOR DIALYSIS PATIEN TS. Dimension Warehouse Supervisor ID - JAQUELINE [id number] 05:48:00 Test Item Value Reference Range Interpretation Comments MAGNESIUM (BEAKER) (test code = 2.1 mg/dL 1.6-2.6 627) Dimension Warehouse Supervisor ID - JAQUELINE MCBC W/PLT COUNT & AUTO [id number] 05:44:00 Test Item Value Reference Range Interpretation [...] PERCENT (BEAKER) (test code = 2801) POCT-GLUCOSE [id number] 20:14:00 Test Item Value Reference Range Interpretation Comments POC-GLUCOSE METER 181 mg/dL 70-110 H : TESTED A T [facility] 6720 (BEAKER) (test code = [facility], 153) 41059: Dimension Warehouse Supervisor/Techni estefani ID = [id number] for CR BERT, TIA POCT-GLUCOSE [id number] 18:20:00 Test Item Value Reference Range Interpretation Comments POC-GLUCOSE METER 148 mg/dL 70-110 H : TESTED A T [facility] 6720 (BEAKER) (test code = [facility], 153) 37220: Dimension Warehouse Supervisor/Techni estefani ID = [id number] for GR AHAM, KAREN BASIC METABOLIC [id number] 06:50:00 Test Item Value Reference Range Interpretation [...] S NOT APPLICABLE FOR DIALYSIS PATIEN TS. [employer] Supervisor ID - [id number] 06:49:00 Test Item Value Reference Range Interpretation Comments MAGNESIUM (BEAKER) (test code = 2.0 mg/dL 1.6-2.6 627) [employer] Supervisor ID - [id number] W/PLT COUNT & AUTO [id number] 05:57:00 Test Item Value Reference Range Interpretation [...] PERCENT (BEAKER) (test code = 2801) POCT-GLUCOSE [id number] 20:12:00 Test Item Value Reference Range Interpretation Comments POC-GLUCOSE METER 217 mg/dL 70-110 H : TESTED A T [facility] 6720 (BEAKER) (test code = [facility], 153) [id number]: [employer] Ware[employer] Supervisor/Techni estefani ID = [id number] for PAPITO NOELNELLI POCT-GLUCOSE [id number] 14:00:00 Test Item Value Reference Range Interpretation Comments POC-GLUCOSE METER 97 mg/dL 70-110 : TESTED A T [facility] 6720 (BEAKER) (test code = [facility], 153) 10995: [employer] Supervisor/Techni estefani ID = [id number] for JOSELIN ESCALONA BASIC METABOLIC [id number] 05:12:00 Test Item Value Reference Range Interpretation [...] S NOT APPLICABLE FOR DIALYSIS PATIEN TS. Dimension Warehouse Supervisor ID - JAQUELINE [id number] 05:09:00 Test Item Value Reference Range Interpretation Comments MAGNESIUM (BEAKER) (test code = 2.1 mg/dL 1.6-2.6 627) Dimension Warehouse Supervisor ID - JAQUELINE MCBC W/PLT COUNT & AUTO [id number] 04:38:00 Test Item Value Reference Range Interpretation [...] PERCENT (BEAKER) (test code = 2801) POCT-GLUCOSE [id number] 21:09:00 Test Item Value Reference Range Interpretation Comments POC-GLUCOSE METER 156 mg/dL 70-110 H : TESTED A T [facility] 6720 (BEAKER) (test code = [facility], 1538) 79226: Dimension Warehouse Supervisor/Techni estefani ID = [id number] for ROSIO DUFF POCT-GLUCOSE [id number] 16:53:00 Test Item Value Reference Range Interpretation Comments POC-GLUCOSE METER 135 mg/dL 70-110 H : TESTED A T [facility] 6720 (BEAKER) (test code [facility], = 1538) 80374: Dimension Warehouse Supervisor/Techni estefani ID = [id number] for JOSELIN ESCALONA POCT-GLUCOSE [id number] 11:36:00 Test Item Value Reference Range Interpretation Comments POC-GLUCOSE METER 115 mg/dL 70-110 H : TESTED A T [facility] 6720 (BEAKER) (test code SHENA [facility], = 1538) 46355: Dimension Warehouse Supervisor/Techni estefani ID = [id number] for JOSELIN ESCALONA OBTAINED CULTURE + GRAM [id number] 08:39:00 Test Item Value Reference Range Interpretation [...] <0 or >4 CULTURE (BEAKER) A <1+ Cami (test code = 1095) parapsilo sis CULTURE (BEAKER) A 1+ Vancomyc in (test code = 1095) resistant Enterococcus faecium GRAM STAIN RESULT 1+ WBCs (BEAKER) (test code = 1123) GRAM STAIN RESULT 1+ gram negative (BEAKER) (test code = rods 977412) POCT-GLUCOSE [id number] 07:57:00 Test Item Value Reference Range Interpretation Comments POC-GLUCOSE METER 75 mg/dL 70-110 : TESTED A T [facility] 67[facility] (BEAKER) (test code = D[facility], 1538) 31081: Dimension Warehouse Supervisor/Techni estefani ID = [id number] for JOSELIN ESCALONA CBC W/PLT COUNT & AUTO [id number] 06:19:00 Test Item Value Reference Range Interpretation [...] (BEAKER) (test code = 2801) BASIC METABOLIC [id number] 06:14:00 Test Item Value Reference Range Interpretation [...] S NOT APPLICABLE FOR DIALYSIS PATIEN TS. Dimension Warehouse Supervisor ID - PIAYA [id number] 06:13:00 Test Item Value Reference Range Interpretation Comments MAGNESIUM (BEAKER) (test code = 2.1 mg/dL 1.6-2.6 627) Dimension Warehouse Supervisor ID - PIAYA LPOCT-GLUCOSE [id number] 20:21:00 Test Item Value Reference Range Interpretation Comments POC-GLUCOSE METER 188 mg/dL 70-110 H : TESTED A T [facility] 6720 (BEAKER) (test code = [facility], 1538) 04495: Dimension Warehouse Supervisor/Techni estefani ID = [id number] for Ch zay, Nikki POCT-GLUCOSE [id number] 16:41:00 Test Item Value Reference Range Interpretation Comments POC-GLUCOSE METER 110 mg/dL 70-110 : TESTED A T [facility] 6720 (BEAKER) (test code [facility], = 1538) 69059: Dimension Warehouse Supervisor/Techni estefani ID = [id number] for WILS ON, SHASTANIE POCT-GLUCOSE [id number] 12:03:00 Test Item Value Reference Range Interpretation Comments POC-GLUCOSE METER 82 mg/dL 70-110 : TESTED A T [facility] 6720 (BEAKER) (test code = [facility], 1538) 77957: Dimension Warehouse Supervisor/Techni estefani ID = [id number] for WILS ON, SHASTANIE POCT-GLUCOSE [id number] 07:12:00 Test Item Value Reference Range Interpretation Comments POC-GLUCOSE METER 86 mg/dL 70-110 : TESTED A T [facility] 6720 (BEAKER) (test code = [facility], 1538) 28575: Dimension Warehouse Supervisor/Techni estefani ID = [id number] for WILS ON, SHASTANIE BASIC METABOLIC [id number] 05:40:00 Test Item Value Reference Range Interpretation [...] S NOT APPLICABLE FOR DIALYSIS PATIEN TS. [id number] 05:38:00 Test Item Value Reference Range Interpretation Comments MAGNESIUM (BEAKER) (test code = 2.0 mg/dL 1.6-2.6 627) CBC W/PLT COUNT & AUTO [id number] 05:07:00 Test Item Value Reference Range Interpretation [...] PERCENT (BEAKER) (test code = 2801) POCT-GLUCOSE [id number] 20:33:00 Test Item Value Reference Range Interpretation Comments POC-GLUCOSE METER 218 mg/dL 70-110 H : TESTED A T [facility] 6720 (BEAKER) (test code = [facility], 153) 74174: Dimension Warehouse Supervisor/Techni estefani ID = [id number] for PHIL MURRELL TTE POCT-GLUCOSE [id number] 17:47:00 Test Item Value Reference Range Interpretation Comments POC-GLUCOSE METER 122 mg/dL 70-110 H : TESTED A T [facility] 6720 (BEAKER) (test code [facility], = 1538) 26991: Dimension Warehouse Supervisor/Techni estefani ID = [id number] for WILS ON, SHASTANIE POCT-GLUCOSE [id number] 11:53:00 Test Item Value Reference Range Interpretation Comments POC-GLUCOSE METER 93 mg/dL 70-110 : TESTED A T [facility] 6720 (BEAKER) (test code = [facility], 153) 40851: Dimension Warehouse Supervisor/Techni estefani ID = [id number] for WILS ON, SHASTANIE POCT-GLUCOSE [id number] 08:26:00 Test Item Value Reference Range Interpretation Comments POC-GLUCOSE METER 93 mg/dL 70-110 : TESTED A T [facility] 6720 (BEAKER) (test code = [facility], 1538) 85941: Dimension Warehouse Supervisor/Techni estefani ID = [id number] for JOSELIN ESCALONA BASIC METABOLIC [id number] 04:43:00 Test Item Value Reference Range Interpretation [...] S NOT APPLICABLE FOR DIALYSIS PATIEN TS. Dimension Warehouse Supervisor ID - [id number] 04:33:00 Test Item Value Reference Range Interpretation Comments MAGNESIUM (BEAKER) (test code = 2.1 mg/dL 1.6-2.6 627) Dimension Warehouse Supervisor ID - EDASICBC W/PLT COUNT & AUTO [id number] 04:11:00 Test Item Value Reference Range Interpretation [...] PERCENT (BEAKER) (test code = 2801) POCT-GLUCOSE [id number] 21:01:00 Test Item Value Reference Range Interpretation Comments POC-GLUCOSE METER 159 mg/dL 70-110 H : TESTED A T [facility] 6720 (BEAKER) (test code = [facility], 1538) 74987: Dimension Warehouse Supervisor/Techni estefani ID = [id number] for Mo min, Alexia POCT-GLUCOSE [id number] 17:01:00 Test Item Value Reference Range Interpretation Comments POC-GLUCOSE METER 149 mg/dL 70-110 H : TESTED A T [facility] 6720 (BEAKER) (test code = BERTNE R QU[facility], 1538) 10865: Dimension Warehouse Supervisor/Techni estefani ID = [id number] for IAIN EASTON POCT-GLUCOSE [id number] 12:36:00 Test Item Value Reference Range Interpretation Comments POC-GLUCOSE METER 127 mg/dL 70-110 H : TESTED A T [facility] 6720 (BEAKER) (test code = DASIA Garcia [place], 1538) 54653: Dimension Warehouse Supervisor/Techni estefani ID = [id number] for ANGEL HILLS POCT-GLUCOSE [id number] 08:18:00 Test Item Value Reference Range Interpretation Comments POC-GLUCOSE METER 75 mg/dL 70-110 : TESTED A T [facility] 6720 (BEAKER) (test code = [facility] Jose [place], 1538) 19819: Dimension Warehouse Supervisor/Techni estefani ID = [id number] for IAIN DEXTER HEMOGLOBIN [id number] 08:08:00 Test Item Value Reference Range Interpretation Comments HEMOGLOBIN A1C (BEAKER) (test code = 5.9 % 4.3-6.1 368) BASIC METABOLIC [id number] 06:38:00 Test Item Value Reference Range Interpretation [...] S NOT APPLICABLE FOR DIALYSIS PATIEN TS. Dimension Warehouse Supervisor ID - JAQUELINE [id number] 06:32:00 Test Item Value Reference Range Interpretation Comments MAGNESIUM (BEAKER) (test code = 2.0 mg/dL 1.6-2.6 627) Dimension Warehouse Supervisor ID - JAQUELINE MCBC W/PLT COUNT & AUTO [id number] 06:04:00 Test Item Value Reference Range Interpretation [...] PERCENT (BEAKER) (test code = 2801) SARS-COV2/RT-PCR ([facility])2019-12-13 05:48:00 Test Item Value Reference Range Interpretation Comments SARS-COV2/RT-PCR (test Negative Not Detected, Negative, code = 9803115) See external report for linked test SARS-COV-2 PERFORMING LAB [facility] KEELY (test code = 2548417) Negative result for this test determines that [...] 564(g) of the Act.Fact Sheet for Healthcare Providers:https://www.Lovejuice.com/sites/default/files/product/documents/Fact_Shee d_XN_Fhvbeevva_Owtn_RKTP-SrI-8.pdfFact Sheet for Healthcare Patients:https://www.Lovejuice.Azingo/sites/default/files/product/ documents/Cntw_Pdpdi_Yibompdn_Jadu_GQAJ-BwX-7.pdfPerforming Laboratory:[facility], [place] [id number]-[id number] METER 2019-12-12 20:52:00 Test Item Value Reference Range Interpretation Comments POC-GLUCOSE METER 123 mg/dL 70-110 H : TESTED A T [facility] 6720 (BEAKER) (test code = [facility], 153) 10312: Dimension Warehouse Supervisor/Techni estefani ID = [id number] for Alexia Vivas POCT-GLUCOSE [id number] 16:14:00 Test Item Value Reference Range Interpretation Comments POC-GLUCOSE METER 175 mg/dL 70-110 H : TESTED A T [facility] 6720 (BEAKER) (test code = [facility], 153) 58922: Dimension Warehouse Supervisor/Techni estefani ID = [id number] for IAIN EASTON POCT-GLUCOSE [id number] 13:41:00 Test Item Value Reference Range Interpretation Comments POC-GLUCOSE METER 145 mg/dL 70-110 H : TESTED A T [facility] 6720 (BEAKER) (test code = [facility], 153) 01218: Dimension Warehouse Supervisor/Techni estefani ID = [id number] for BLADIMIR MELISSA VANCOMYCIN LEVEL, [id number] 05:00:00 Test Item Value Reference Range Interpretation Comments VANCOMYCIN RANDOM (BEAKER) (test 17.3 ug/mL code = 523) Reference Range: No NormalsOperator ID - JAQUELINE MSPIN/CONCENTRATION CHARGE 2019-12-12 04:16:00 Test Item Value Reference Range Interpretation Comments CONCENTRATION CHARGED (BEAKER) (test Done code = 2657) POCT-GLUCOSE [id number] 20:36:00 Test Item Value Reference Range Interpretation Comments POC-GLUCOSE METER 80 mg/dL 70-110 : TESTED A T [facility] 6720 (BEAKER) (test code = [facility], 153) 47339: Dimension Warehouse Supervisor/Techni estefani ID = [id number] for ELIZABETH DUENAS POCT-GLUCOSE [id number] 16:43:00 Test Item Value Reference Range Interpretation Comments POC-GLUCOSE METER 88 mg/dL 70-110 : TESTED A T [facility] 6720 (BEAKER) (test code = [facility], 1538) 25508: Dimension Warehouse Supervisor/Techni estefani ID = [id number] for KRYSTAL KNOX POCT-GLUCOSE [id number] 14:06:00 Test Item Value Reference Range Interpretation Comments POC-GLUCOSE METER 78 mg/dL 70-110 : TESTED A T [facility] 6720 (BEAKER) (test code = [facility], 1538) 91847: Dimension Warehouse Supervisor/Techni estefani ID = [id number] for KRYSTAL KNOX POCT-GLUCOSE [id number] 11:19:00 Test Item Value Reference Range Interpretation Comments POC-GLUCOSE METER 93 mg/dL 70-110 : TESTED A T [facility] 6720 (BEAKER) (test code = [facility], 1538) 89788: Dimension Warehouse Supervisor/Techni estefani ID = [id number] for COLEEN LEWIS ROSE BASIC METABOLIC [id number] 04:38:00 Test Item Value Reference Range Interpretation [...] S NOT APPLICABLE FOR DIALYSIS PATIEN TS. Dimension Warehouse Supervisor ID - EDASICBC W/PLT COUNT & AUTO [id number] 04:14:00 Test Item Value Reference Range Interpretation [...] (test code = 416) BASOPHILS ABSOLUTE COUNT ([facility]) 0.07 K/ L 0.01-0.08 (test code = 417) IMMATURE GRANULOCYTES-RELATIVE 0 % 0-1 PERCENT ([facility]) (test code = 2801) BLOOD [id number] 02:00:00 Test Item Value Reference Range Interpretation Comments CULTURE ([facility]) (test No growth in 5 days code = 1095) POCT-GLUCOSE [id number] 20:48:00 Test Item Value Reference Range Interpretation Comments POC-GLUCOSE METER 192 mg/dL 70-110 H : Notified RN/MD: ([facility]) (test code = TESTED AT [facility] 6720 153) [facility], 44019: Dimension Warehouse Supervisor/Techni estefani ID = [id number] for ENOCH RICKEYELMIRA POCT-GLUCOSE [id number] 17:27:00 Test Item Value Reference Range Interpretation Comments POC-GLUCOSE METER 96 mg/dL 70-110 : TESTED A T [facility] ([facility]) (test code = [facility], [facility]) 46570: Dimension Warehouse Supervisor/Techni estefani ID = [id number] for WILS ON, SHASTANIE POCT-GLUCOSE [id number] 16:31:00 Test Item Value Reference Range Interpretation Comments POC-GLUCOSE METER 91 mg/dL 70-110 : TESTED A T [facility] ([facility]) (test code = [facility], 153) 84629: Dimension Warehouse Supervisor/Techni estefani ID = [id number] for JUAN Z, EVONNE VIAL POCT-GLUCOSE [id number] 11:42:00 Test Item Value Reference Range Interpretation Comments POC-GLUCOSE METER 91 mg/dL 70-110 : TESTED A T [facility] ([facility]) (test code = [facility], 153) 28846: Dimension Warehouse Supervisor/Techni estefani ID = [id number] for WILS ON, SHASTANIE POCT-GLUCOSE [id number] 08:18:00 Test Item Value Reference Range Interpretation Comments POC-GLUCOSE METER 95 mg/dL 70-110 : TESTED A T [facility] ([facility]) (test code = [facility], 153) 74234: Dimension Warehouse Supervisor/Techni estefani ID = [id number] for WILS ON, SHASTANIE POCT-GLUCOSE [id number] 21:34:00 Test Item Value Reference Range Interpretation Comments POC-GLUCOSE METER 135 mg/dL 70-110 H : TESTED A T [facility] 6720 (BEAKER) (test code = [facility], 153) 24932: Dimension Warehouse Supervisor/Techni estefani ID = [id number] for MURRELL, PHIL TTE POCT-GLUCOSE [id number] 16:56:00 Test Item Value Reference Range Interpretation Comments POC-GLUCOSE METER 140 mg/dL 70-110 H : TESTED A T [facility] 6720 (BEAKER) (test code = [facility], [facility]8) 67786: Dimension Warehouse Supervisor/Techni estefani ID = [id number] for AGUSTÍN GUTIERREZ, IAIN POCT-GLUCOSE [id number] 11:38:00 Test Item Value Reference Range Interpretation Comments POC-GLUCOSE METER 126 mg/dL 70-110 H : TESTED A T [facility] 6720 (BEAKER) (test code = [facility], [facility]8) 29110: Dimension Warehouse Supervisor/Techni estefani ID = [id number] for AGUSTÍN GUTIERREZ, IAIN POCT-GLUCOSE [id number] 07:31:00 Test Item Value Reference Range Interpretation Comments POC-GLUCOSE METER 63 mg/dL 70-110 L : TESTED A T [facility] 6720 (BEAKER) (test code = [facility], [facility]8) 60868: Dimension Warehouse Supervisor/Techni estefani ID = [id number] for BREA NE, IAIN POCT-GLUCOSE [id number] 21:32:00 Test Item Value Reference Range Interpretation Comments POC-GLUCOSE METER 144 mg/dL 70-110 H : TESTED A T [facility] 6720 (BEAKER) (test code = [facility], 1538) 89777: Dimension Warehouse Supervisor/Techni estefani ID = [id number] for MURRELL, PHIL TTE POCT-GLUCOSE [id number] 17:06:00 Test Item Value Reference Range Interpretation Comments POC-GLUCOSE METER 95 mg/dL 70-110 : TESTED A T [facility] 6720 (BEAKER) (test code = [facility], [facility]8) 80110: Dimension Warehouse Supervisor/Techni estefani ID = [id number] for HEAR NE, IAIN POCT-GLUCOSE [id number] 12:40:00 Test Item Value Reference Range Interpretation Comments POC-GLUCOSE METER 153 mg/dL 70-110 H : TESTED A T [facility] 6720 (BEAKER) (test code = [facility], 1538) 63638: Dimension Warehouse Supervisor/Techni estefani ID = [id number] for IAIN EASTON POCT-GLUCOSE [id number] 07:26:00 Test Item Value Reference Range Interpretation Comments POC-GLUCOSE METER 103 mg/dL 70-110 : TESTED A T [facility] 6720 (BEAKER) (test code = [facility], 1538) 53217: Dimension Warehouse Supervisor/Techni estefani ID = [id number] for IAIN EASTON BASIC METABOLIC [id number] 05:34:00 Test Item Value Reference Range Interpretation [...] S NOT APPLICABLE FOR DIALYSIS PATIEN TS. Dimension Warehouse Supervisor ID - PIAYA LCBC W/PLT COUNT & AUTO [id number] 04:04:00 Test Item Value Reference Range Interpretation [...] PERCENT (BEAKER) (test code = 2801) POCT-GLUCOSE [id number] 21:37:00 Test Item Value Reference Range Interpretation Comments POC-GLUCOSE METER 251 mg/dL 70-110 H : TESTED A T [facility] 6720 (BEAKER) (test code = [facility], 153) 50335: Dimension Warehouse Supervisor/Techni estefani ID = [id number] for PHIL MURRELL TTE POCT-GLUCOSE [id number] 17:54:00 Test Item Value Reference Range Interpretation Comments POC-GLUCOSE METER 108 mg/dL 70-110 : [facility] A T [facility] 6720 [facility] (test code = [facility], 153) 70890: Dimension Warehouse Supervisor/Techni estefani ID = [id number] for Avery Levy POCT-GLUCOSE [id number] 11:57:00 Test Item Value Reference Range Interpretation Comments POC-GLUCOSE METER 85 mg/dL 70-110 : TESTED A T [facility] 6720 ([facility]) (test code = [facility], [facility]) 73523: Dimension Warehouse Supervisor/Techni estefani ID = [id number] for IAIN DEXTER POCT-GLUCOSE [id number] 08:11:00 Test Item Value Reference Range Interpretation Comments POC-GLUCOSE METER 66 mg/dL 70-110 L : TESTED A T [facility] 6720 (BEAKER) (test code = [facility], 153) 95958: Dimension Warehouse Supervisor/Techni estefani ID = [id number] for IAIN DEXTER FUNGUS CULTURE + [id number] 15:59:00 Test Item Value Reference Range Interpretation Comments CULTURE (BEAKER) (test No fungus isolated in code = 1095) 28 days FUNGUS SMEAR ([facility]) No fungi seen (test code = 1406) POCT-GLUCOSE [id number] 15:44:00 Test Item Value Reference Range Interpretation Comments POC-GLUCOSE METER 97 mg/dL 70-110 : TESTED A T [facility] 6720 (BEAKER) (test code = [facility], 153) 89772: Dimension Warehouse Supervisor/Techni estefani ID = [id number] for WILL IA, POCT-GLUCOSE [id number] 10:44:00 Test Item Value Reference Range Interpretation Comments POC-GLUCOSE METER 71 mg/dL 70-110 : TESTED A T [facility] 6720 (BEAKER) (test code = [facility], 153) 38067: Dimension Warehouse Supervisor/Techni estefani ID = [id number] for WILL IAMS, SARS-COV2/RT-PCR ([facility])2019-12-06 08:14:00 Test Item Value Reference Range Interpretation Comments SARS-COV2/RT-PCR (test Negative Not Detected, Negative, code = 5989258) See external report for linked test SARS-COV-2 PERFORMING LAB [facility] KEELY (test code = 7192433) Negative result for this test determines that [...] 564(g) of the Act.Fact Sheet for Healthcare Providers:https://www.ActiveSecidel.com/sites/default/files/product/documents/Fact_Shee z_DI_Dtcyfgfng_Rlit_SNME-LmD-1.pdfFact Sheet for Healthcare Patients:https://www.Lovejuice.com/sites/default/files/product/ documents/Hjsi_Blnan_Ynhczupu_Zfkl_KIOD-OuG-1.pdfPerforming Laboratory:[facility], [place] [id number]-YQZPRGA METER 2019-12-06 08:03:00 Test Item Value Reference Range Interpretation Comments POC-GLUCOSE METER 68 mg/dL 70-110 L : TESTED Vikas Tai [facility] 6720 (BEAKER) (test code = DASIA Garcia [facility], 1538) 39331: Dimension Warehouse Supervisor/Techni estefani ID = [id number] for QUEEN SWANSON BASIC METABOLIC [id number] 07:45:00 Test Item Value Reference Range Interpretation [...] S NOT APPLICABLE FOR DIALYSIS PATIEN TS. Dimension Warehouse Supervisor ID - [id number] 07:30:00 Test Item Value Reference Range Interpretation Comments PHOSPHORUS (BEAKER) (test code = 4.8 mg/dL 2.3-4.7 H 604) Dimension Warehouse Supervisor ID - [id number] 07:30:00 Test Item Value Reference Range Interpretation Comments MAGNESIUM (BEAKER) (test code = 2.4 mg/dL 1.6-2.6 627) Dimension Warehouse Supervisor ID - EDASICBC W/PLT COUNT & AUTO [id number] 07:19:00 Test Item Value Reference Range Interpretation [...] PERCENT (BEAKER) (test code = 2801) PROTHROMBIN [id number] 06:53:00 Test Item Value Reference Range Interpretation Comments PROTIME (NOE) (test code = 16.1 seconds 11.9-14.2 H 759) INR (BEAKER) (test code = 370) 1.32 <=5.90 Effective 08/02/2018: PT Reference Range ChangeNew: 11.9-14.2 Previous: 11.7- 14.7RECOMMENDED COUMADIN/WARFARIN INR THERAPY RANGESSTANDARD DOSE: 2.0-3.0 Includes: PROPHYLAXIS for venous thrombosis, systemic embolization; TREATMENT for venous thrombosis and/or pulmonary embolus.HIGH RISK: Target INR is2.5-3.5 for patients wiht mechanical heart valves.POCT-GLUCOSE [id number] 21:16:00 Test Item Value Reference Range Interpretation Comments POC-GLUCOSE METER 257 mg/dL 70-110 H : TESTED A T [facility] 6720 ([employer]) (test code = [facility], [facility]) 91218: Dimension Warehouse Supervisor/Techni estefani ID = [id number] for MURRELL, PHIL TTE POCT-GLUCOSE [id number] 21:21:00 Test Item Value Reference Range Interpretation Comments POC-GLUCOSE METER 247 mg/dL 70-110 H : TESTED A T [facility] 6720 ([employer]) (test code = [facility], [facility]8) 33736: Dimension Warehouse Supervisor/Techni estefani ID = [id number] for SA HIGGINS, CRYSTAL POCT-GLUCOSE [id number] 12:32:00 Test Item Value Reference Range Interpretation Comments POC-GLUCOSE METER 95 mg/dL 70-110 : TESTED A T [facility] 6720 ([employer]) (test code = [facility], [facility]8) 06702: Dimension Warehouse Supervisor/Techni estefani ID = [id number] for QUANG OS, JACOB POCT-GLUCOSE [id number] 08:26:00 Test Item Value Reference Range Interpretation Comments POC-GLUCOSE METER 98 mg/dL 70-110 : TESTED A T [facility] 6720 (BEAKER) (test code = [facility], [facility]8) 22700: Dimension Warehouse Supervisor/Techni estefani ID = [id number] for QUANG OS, JACOB POCT-GLUCOSE [id number] 21:54:00 Test Item Value Reference Range Interpretation Comments POC-GLUCOSE METER 153 mg/dL 70-110 H : TESTED A T [facility] 6720 (BEAKER) (test code = [facility], 153) 14435: Dimension Warehouse Supervisor/Techni estefani ID = [id number] for UL LATTIL, SJ POCT-GLUCOSE [id number] 17:04:00 Test Item Value Reference Range Interpretation Comments POC-GLUCOSE METER 194 mg/dL 70-110 H : TESTED A T [facility] 6720 (BEAKER) (test code = [facility], 1538) 19134: Dimension Warehouse Supervisor/Techni estefani ID = [id number] for HIGGINS BLET, JANIE POCT-GLUCOSE [id number] 12:29:00 Test Item Value Reference Range Interpretation Comments POC-GLUCOSE METER 162 mg/dL 70-110 H : TESTED A T [facility] 6720 (BEAKER) (test code = [facility], 153) 01971: Dimension Warehouse Supervisor/Techni estefani ID = [id number] for HIGGINS BLET, JANIE POCT-GLUCOSE [id number] 09:42:00 Test Item Value Reference Range Interpretation Comments POC-GLUCOSE METER 178 mg/dL 70-110 H : TESTED A T [facility] 6720 (BEAKER) (test code = [facility], 1538) [id number]: [employer] Supervisor/Techni estefani ID = [id number] for NG TYRONE RIVERA POCT-GLUCOSE [id number] 07:19:00 Test Item Value Reference Range Interpretation Comments POC-GLUCOSE METER 115 mg/dL 70-110 H : TESTED A T [facility] 6720 (BEAKER) (test code = [facility], 1538) [id number]: [employer] Supervisor/Techni estefani ID = [id number] for UL LATTIL, SJ CREATINE KINASE (CK)2019-11-29 06:25:00 Test Item Value Reference Range Interpretation Comments CREATINE KINASE TOTAL (BEAKER) (test 249 U/L 29-200 H code = 380) [employer] Supervisor ID - JAQUELINE MPOCT-GLUCOSE [id number] 21:03:00 Test Item Value Reference Range Interpretation Comments POC-GLUCOSE METER 157 mg/dL 70-110 H : TESTED A T [facility] 6720 (BEAKER) (test code = [facility], 1538) [id number]: [employer] Ware[employer] Supervisor/Techni estefani ID = [id number] for UL SJ REYES POCT-GLUCOSE [id number] 18:26:00 Test Item Value Reference Range Interpretation Comments POC-GLUCOSE METER 136 mg/dL 70-110 H : TESTED A T [facility] 6720 (BEAKER) (test code = [facility], 1538) 28516: [employer] Supervisor/Techni estefani ID = [id number] for NG TYRONE RIVERA POCT-GLUCOSE [id number] 11:59:00 Test Item Value Reference Range Interpretation Comments POC-GLUCOSE METER 160 mg/dL 70-110 H : TESTED A T [facility] 6720 (BEAKER) (test code = [facility], 1538) 55382: Dimension Warehouse Supervisor/Techni estefani ID = [id number] for GUNNER PANDYA POCT-GLUCOSE [id number] 08:00:00 Test Item Value Reference Range Interpretation Comments POC-GLUCOSE METER 89 mg/dL 70-110 : TESTED A T [facility] 6720 (BEAKER) (test code = [facility], 1538) 35975: Dimension Warehouse Supervisor/Techni estefani ID = [id number] for FAGUNNER MCNALLY BASIC METABOLIC [id number] 04:43:00 Test Item Value Reference Range Interpretation [...] S NOT APPLICABLE FOR DIALYSIS PATIEN TS. Dimension Warehouse Supervisor ID - BSCBC W/PLT COUNT & AUTO [id number] 04:35:00 Test Item Value Reference Range Interpretation [...] PERCENT (BEAKER) (test code = 2801) POCT-GLUCOSE [id number] 21:07:00 Test Item Value Reference Range Interpretation Comments POC-GLUCOSE METER 146 mg/dL 70-110 H : TESTED A T [facility] 6720 (BEAKER) (test code = [facility], 1538) 29135: Dimension Warehouse Supervisor/Techni estefani ID = [id number] for JAD SALGUERO POCT-GLUCOSE [id number] 17:47:00 Test Item Value Reference Range Interpretation Comments POC-GLUCOSE METER 138 mg/dL 70-110 H : TESTED A T [facility] 6720 (BEAKER) (test code = [facility], 1538) 32299: Dimension Warehouse Supervisor/Techni estefani ID = [id number] for SA JACOB DE LEON POCT-GLUCOSE [id number] 12:12:00 Test Item Value Reference Range Interpretation Comments POC-GLUCOSE METER 157 mg/dL 70-110 H : TESTED A T [facility] 6720 (BEAKER) (test code = [facility], 1538) 00370: Dimension Warehouse Supervisor/Techni estefani ID = [id number] for SA JACOB DE LEON POCT-GLUCOSE [id number] 09:04:00 Test Item Value Reference Range Interpretation Comments POC-GLUCOSE METER 142 mg/dL 70-110 H : TESTED A T [facility] 6720 (BEAKER) (test code = [facility], 1538) 07612: Dimension Warehouse Supervisor/Techni estefani ID = [id number] for SA MOISES, JACOB BASIC METABOLIC [id number] 05:51:00 Test Item Value Reference Range Interpretation [...] S NOT APPLICABLE FOR DIALYSIS PATIEN TS. Dimension Warehouse Supervisor ID - BSCBC W/PLT COUNT & AUTO [id number] 05:17:00 Test Item Value Reference Range Interpretation [...] PERCENT (BEAKER) (test code = 2801) POCT-GLUCOSE [id number] 21:20:00 Test Item Value Reference Range Interpretation Comments POC-GLUCOSE METER 136 mg/dL 70-110 H : TESTED A T [facility] 6720 (BEAKER) (test code = [facility], [facility]) 93944: Dimension Warehouse Supervisor/Techni estefani ID = [id number] for SA HIGGINS, CRYSTAL POCT-GLUCOSE [id number] 17:34:00 Test Item Value Reference Range Interpretation Comments POC-GLUCOSE METER 205 mg/dL 70-110 H : TESTED A T [facility] 6720 (BEAKER) (test code = [facility], [facility]) 56780: Dimension Warehouse Supervisor/Techni estefani ID = [id number] for SA NTOS, JACOB POCT-GLUCOSE [id number] 11:22:00 Test Item Value Reference Range Interpretation Comments POC-GLUCOSE METER 98 mg/dL 70-110 : TESTED A T [facility] 6720 (BEAKER) (test code = [facility], 1538) 06439: Dimension Warehouse Supervisor/Techni estefani ID = [id number] for Dania ano, Avery POCT-GLUCOSE [id number] 08:07:00 Test Item Value Reference Range Interpretation Comments POC-GLUCOSE METER 117 mg/dL 70-110 H : TESTED A T [facility] 6720 (BEAKER) (test code = [facility], 1538) 23913: Dimension Warehouse Supervisor/Techni estefani ID = [id number] for HIGGINS BLET, JANIE CBC W/PLT COUNT & AUTO [id number] 05:21:00 Test Item Value Reference Range Interpretation [...] (BEAKER) (test code = 2801) BASIC METABOLIC [id number] 05:17:00 Test Item Value Reference Range Interpretation [...] S NOT APPLICABLE FOR DIALYSIS PATIEN TS. Dimension Warehouse Supervisor ID - DBPOCT-GLUCOSE [id number] 21:45:00 Test Item Value Reference Range Interpretation Comments POC-GLUCOSE METER 144 mg/dL 70-110 H : TESTED A T [facility] 6720 ([employer]uity[employer] SolutionsAKER) (test code = [facility] [employer] [facility], 1538) 37191: Dimension Warehouse Supervisor/Techni estefani ID = [id number] for UL LATTIL, SJ POCT-GLUCOSE [id number] 17:16:00 Test Item Value Reference Range Interpretation Comments POC-GLUCOSE METER 134 mg/dL 70-110 H : TESTED A T [facility] 6720 (BEAKER) (test code = [facility] [employer] [facility], 153) 87991: Dimension Warehouse Supervisor/Techni estefani ID = [id number] for GUNNER PANDYA POCT-GLUCOSE [id number] 12:00:00 Test Item Value Reference Range Interpretation Comments POC-GLUCOSE METER 120 mg/dL 70-110 H : TESTED A T [facility] 6720 (BEAKER) (test code = [facility], 1538) 30220: Dimension Warehouse Supervisor/Techni estefani ID = [id number] for FA ITH, GUNNER POCT-GLUCOSE [id number] 08:04:00 Test Item Value Reference Range Interpretation Comments POC-GLUCOSE METER 74 mg/dL 70-110 : TESTED A T [facility] 6720 (BEAKER) (test code = [facility], 1538) 66585: Dimension Warehouse Supervisor/Techni estefani ID = [id number] for FAIT H, GUNNER POCT-GLUCOSE [id number] 21:31:00 Test Item Value Reference Range Interpretation Comments POC-GLUCOSE METER 155 mg/dL 70-110 H : TESTED A T [facility] 6720 (BEAKER) (test code = [facility], 1538) 36022: Dimension Warehouse Supervisor/Techni estefani ID = [id number] for UL LATTIL, SJ POCT-GLUCOSE [id number] 17:03:00 Test Item Value Reference Range Interpretation Comments POC-GLUCOSE METER 127 mg/dL 70-110 H : TESTED A T [facility] 6720 (BEAKER) (test code = [facility], 1538) 37079: Dimension Warehouse Supervisor/Techni estefani ID = [id number] for FA ITH, GUNNER POCT-GLUCOSE [id number] 12:28:00 Test Item Value Reference Range Interpretation Comments POC-GLUCOSE METER 147 mg/dL 70-110 H : TESTED A T [facility] 6720 (BEAKER) (test code = [facility], 1538) 93542: Dimension Warehouse Supervisor/Techni estefani ID = [id number] for FA ITH, GUNNER POCT-GLUCOSE [id number] 08:06:00 Test Item Value Reference Range Interpretation Comments POC-GLUCOSE METER 107 mg/dL 70-110 : TESTED A T [facility] 6720 (BEAKER) (test code = [facility], 1538) 61295: Dimension Warehouse Supervisor/Techni estefani ID = [id number] for FA ITH, GUNNER POCT-GLUCOSE [id number] 21:07:00 Test Item Value Reference Range Interpretation Comments POC-GLUCOSE METER 179 mg/dL 70-110 H : TESTED A T [facility] 6720 (BEAKER) (test code = [facility], 1538) 59895: Dimension Warehouse Supervisor/Techni estefani ID = [id number] for SJ HERBERT POCT-GLUCOSE [id number] 17:04:00 Test Item Value Reference Range Interpretation Comments POC-GLUCOSE METER 201 mg/dL 70-110 H : [facility] (test code = DASIA Garcia [facility], 1538) 50920: Dimension Warehouse Supervisor/Techni estefani ID = [id number] for GUNNER PANDYA POCT-GLUCOSE [id number] 12:29:00 Test Item Value Reference Range Interpretation Comments POC-GLUCOSE METER 110 mg/dL 70-110 : [facility] (test code = DASIA Gracia [facility], 1538) 26832: Dimension Warehouse Supervisor/Techni estefani ID = [id number] for Avery Levy SARS-COV2/RT-PCR ([facility])2019-11-23 11:35:00 Test Item Value Reference Range Interpretation Comments SARS-COV2/RT-PCR (test Negative Not Detected, Negative, code = 6153548) See external report for linked test SARS-COV-2 PERFORMING LAB [facility] (test code = 6871939) Negative result for this test determines that [...] 564(g) of the Act.Fact Sheet for Healthcare Providers:https://www.[employer]/sites/default/files/product/documents/Fact_Shee w_TS_Xjnvsexhr_Ppsm_JCEP-SrR-8.pdfFact Sheet for Healthcare Patients:https://www.[employer]/sites/default/files/product/ documents/Lgak_Lenlf_Wvzgdqco_Yutl_OYAE-FiI-9.pdfPerforming Laboratory:[place] [address], [place] [address]XNNW-PRDPZKS METER 2019-11-23 08:05:00 Test Item Value Reference Range Interpretation Comments POC-GLUCOSE METER 92 mg/dL 70-110 : TESTED A T [facility] 6720 (BEAKER) (test code = [facility], 153) 93679: Dimension Warehouse Supervisor/Techni estefani ID = [id number] for GUNNER MUHAMMAD POCT-GLUCOSE [id number] 21:46:00 Test Item Value Reference Range Interpretation Comments POC-GLUCOSE METER 145 mg/dL 70-110 H : TESTED A T [facility] 6720 (BEAKER) (test code = [facility], 153) 71945: Dimension Warehouse Supervisor/Techni estefani ID = [id number] for CA RBAJAL, TIMA POCT-GLUCOSE [id number] 17:51:00 Test Item Value Reference Range Interpretation Comments POC-GLUCOSE METER 180 mg/dL 70-110 H : TESTED A T [facility] 6720 (BEAKER) (test code = [facility], 153) 44669: Dimension Warehouse Supervisor/Techni estefani ID = [id number] for SA NTOS, JACOB POCT-GLUCOSE [id number] 11:57:00 Test Item Value Reference Range Interpretation Comments POC-GLUCOSE METER 151 mg/dL 70-110 H : TESTED A T [facility] 6720 (BEAKER) (test code = [facility], 1538) 03914: Dimension Warehouse Supervisor/Techni estefani ID = [id number] for SA NTOS, JACOB POCT-GLUCOSE [id number] 08:07:00 Test Item Value Reference Range Interpretation Comments POC-GLUCOSE METER 110 mg/dL 70-110 : TESTED A T [facility] 6720 (BEAKER) (test code = [facility], 1538) 53714: Dimension Warehouse Supervisor/Techni estefani ID = [id number] for SA NTOS, JACOB CREATINE KINASE (CK)2019-11-22 05:38:00 Test Item Value Reference Range Interpretation Comments CREATINE KINASE TOTAL (BEAKER) (test 57 U/L 29-200 code = 380) Dimension Warehouse Supervisor ID - DANITZA LPOCT-GLUCOSE [id number] 21:49:00 Test Item Value Reference Range Interpretation Comments POC-GLUCOSE METER 171 mg/dL 70-110 H : TESTED A T [facility] 6720 (BEAKER) (test code = [facility], 1538) 85826: Dimension Warehouse Supervisor/Techni estefani ID = [id number] for CA RBAJAL, TIMA ANAEROBIC [id number] 18:36:00 Test Item Value Reference Range Interpretation Comments CULTURE (BEAKER) (test No anaerobes isolated code = 1095) HEPATITIS B SURFACE [id number] 17:43:00 Test Item Value Reference Range Interpretation Comments HEPATITIS B SURFACE ANTIGEN (2) Nonreactive Nonreactive (BEAKER) (test code = 2585) Specimen is considered negative for HBsAg.POCT-GLUCOSE [id number] 12:07:00 Test Item Value Reference Range Interpretation Comments POC-GLUCOSE METER 106 mg/dL 70-110 : TESTED A T [facility] 6720 (BEAKER) (test code = [facility], 1538) 01536: Dimension Warehouse Supervisor/Techni estefani ID = [id number] for SA NTOS, JACOB POCT-GLUCOSE [id number] 08:05:00 Test Item Value Reference Range Interpretation Comments POC-GLUCOSE METER 113 mg/dL 70-110 H : TESTED A T [facility] 6720 (BEAKER) (test code = [facility], 1538) 17167: Dimension Warehouse Supervisor/Techni estefani ID = [id number] for SA NTOS, JACOB POCT-GLUCOSE [id number] 22:58:00 Test Item Value Reference Range Interpretation Comments POC-GLUCOSE METER 201 mg/dL 70-110 H : TESTED A T [facility] 6720 (BEAKER) (test code = [facility], [facility]) 45708: Dimension Warehouse Supervisor/Techni estefani ID = [id number] for UL LATTIL, SJ POCT-GLUCOSE [id number] 17:14:00 Test Item Value Reference Range Interpretation Comments POC-GLUCOSE METER 128 mg/dL 70-110 H : TESTED A T [facility] 6720 (BEAKER) (test code = [facility], [facility]) 15419: Dimension Warehouse Supervisor/Techni estefani ID = [id number] for FA ITH, GUNNER POCT-GLUCOSE [id number] 12:17:00 Test Item Value Reference Range Interpretation Comments POC-GLUCOSE METER 171 mg/dL 70-110 H : TESTED A T [facility] 6720 (BEAKER) (test code = [facility], [facility]) 36444: Dimension Warehouse Supervisor/Techni estefani ID = [id number] for FA ITH, GUNNER POCT-GLUCOSE [id number] 23:29:00 Test Item Value Reference Range Interpretation Comments POC-GLUCOSE METER 210 mg/dL 70-110 H : TESTED A T [facility] 6720 (BEAKER) (test code = [facility], [facility]8) 71721: Dimension Warehouse Supervisor/Techni estefani ID = [id number] for UL LATTIL, SJ POCT-GLUCOSE [id number] 20:51:00 Test Item Value Reference Range Interpretation Comments POC-GLUCOSE METER 132 mg/dL 70-110 H : TESTED A T [facility] 6720 (BEAKER) (test code = [facility], [facility]) 54858: Dimension Warehouse Supervisor/Techni estefani ID = [id number] for CLAUDIA BERENICE TORIA POCT-GLUCOSE [id number] 12:26:00 Test Item Value Reference Range Interpretation Comments POC-GLUCOSE METER 155 mg/dL 70-110 H : TESTED A T [facility] 6720 (BEAKER) (test code = [facility], [facility]) 74276: Dimension Warehouse Supervisor/Techni estefani ID = [id number] for FA ITH, GUNNER POCT-GLUCOSE [id number] 08:09:00 Test Item Value Reference Range Interpretation Comments POC-GLUCOSE METER 109 mg/dL 70-110 : [facility]ER[facility] (test code = [facility] [place], 1538) 31312: Dimension Warehouse Supervisor/Techni estefani ID = [id number] for GUNNER PANDYA BASIC METABOLIC [id number] 07:08:00 Test Item Value Reference Range Interpretation [...] S NOT APPLICABLE FOR DIALYSIS PATIEN TS. Dimension Warehouse Supervisor ID - PIAYA LCBC (HEMOGRAM ONLY)2019-11-19 04:19:00 [...] 0-0 (BEAKER) (test code = 413) POCT-GLUCOSE [id number] 21:23:00 Test Item Value Reference Range Interpretation Comments POC-GLUCOSE METER 182 mg/dL 70-110 H : TESTED A T [facility] 6720 (BEAKER) (test code = [facility], 153) 81185: Dimension Warehouse Supervisor/Techni estefani ID = [id number] for CA LAL, TIMA POCT-GLUCOSE [id number] 17:32:00 Test Item Value Reference Range Interpretation Comments POC-GLUCOSE METER 142 mg/dL 70-110 H : TESTED A T [facility] 6720 (BEAKER) (test code = [facility], 153) 06292: Dimension Warehouse Supervisor/Techni estefani ID = [id number] for SA JACOB DE LEON POCT-GLUCOSE [id number] 13:24:00 Test Item Value Reference Range Interpretation Comments POC-GLUCOSE METER 164 mg/dL 70-110 H : TESTED A T [facility] 6720 (BEAKER) (test code = [facility], 153) 05572: Dimension Warehouse Supervisor/Techni estefani ID = [id number] for SA NTTONYA, JACOB BASIC METABOLIC [id number] 12:57:00 Test Item Value Reference Range Interpretation [...] NOT APPLICABLE FOR DIALYSIS PATIEN TS. POCT-GLUCOSE [id number] 08:04:00 Test Item Value Reference Range Interpretation Comments POC-GLUCOSE METER 137 mg/dL 70-110 H : TESTED A T [facility] 6720 (BEAKER) (test code = [facility] [place], 1538) 46102: Dimension Warehouse Supervisor/Techni estefani ID = [id number] for JACOB LYLES CBC (HEMOGRAM ONLY)2019-11-18 06:36:00 [...] 0-0 (BEAKER) (test code = 413) POCT-GLUCOSE [id number] 22:05:00 Test Item Value Reference Range Interpretation Comments POC-GLUCOSE METER 123 mg/dL 70-110 H : TESTED A T [facility] 6720 (BEAKER) (test code = [facility], 1538) 66130: Dimension Warehouse Supervisor/Techni estefani ID = [id number] for ON ABDIRAHMAN LUU POCT-GLUCOSE [id number] 17:52:00 Test Item Value Reference Range Interpretation Comments POC-GLUCOSE METER 111 mg/dL 70-110 H : TESTED A T [facility] 6720 (BEAKER) (test code = [facility], 1538) 68006: Dimension Warehouse Supervisor/Techni estefani ID = [id number] for SA JACOB DE LEON BASIC METABOLIC [id number] 09:54:00 Test Item Value Reference Range Interpretation [...] S NOT APPLICABLE FOR DIALYSIS PATIEN TS. Dimension Warehouse Supervisor ID - JAQUELINE MPOCT-GLUCOSE [id number] 08:13:00 Test Item Value Reference Range Interpretation Comments POC-GLUCOSE METER 134 mg/dL 70-110 H : TESTED A T [facility] 6720 (BEAKER) (test code = [facility], 1538) 46562: Dimension Warehouse Supervisor/Techni estefani ID = [id number] for SA JACOB DE LEON CBC (HEMOGRAM ONLY)2019-11-17 07:03:00 Test Item Value [...] 0-0 (BEAKER) (test code = 413) POCT-GLUCOSE [id number] 21:52:00 Test Item Value Reference Range Interpretation Comments POC-GLUCOSE METER 154 mg/dL 70-110 H : TESTED A T [facility] 6720 (BEAKER) (test code = [facility], 1538) 94751: Dimension Warehouse Supervisor/Techni estefani ID = [id number] for SA CRYSTAL HIGGINS POCT-GLUCOSE [id number] 17:47:00 Test Item Value Reference Range Interpretation Comments POC-GLUCOSE METER 179 mg/dL 70-110 H : TESTED A T [facility] 6720 (BEAKER) (test code = [facility], 1538) 03489: Dimension Warehouse Supervisor/Techni estefani ID = [id number] for SA JACOB DE LEON POCT-GLUCOSE [id number] 11:58:00 Test Item Value Reference Range Interpretation Comments POC-GLUCOSE METER 158 mg/dL 70-110 H : TESTED A T [facility] 6720 (BEAKER) (test code = [facility] Jose [facility], 1538) 48827: Dimension Warehouse Supervisor/Techni estefani ID = [id number] for JACOB LYLES BASIC METABOLIC [id number] 08:15:00 Test Item Value Reference Range Interpretation [...] S NOT APPLICABLE FOR DIALYSIS PATIEN TS. Dimension Warehouse Supervisor ID - ANTONY FPOCT-GLUCOSE [id number] 08:09:00 Test Item Value Reference Range Interpretation Comments POC-GLUCOSE METER 163 mg/dL 70-110 H : TESTED A T [facility] 6720 (BEAKER) (test code = [facility] [place], 1538) 28130: Dimension Warehouse Supervisor/Techni estefani ID = [id number] for JACOB LYLES CBC (HEMOGRAM ONLY)2019-11-16 07:04:00 [...] 0-0 (BEAKER) (test code = 413) POCT-GLUCOSE [id number] 21:05:00 Test Item Value Reference Range Interpretation Comments POC-GLUCOSE METER 199 mg/dL 70-110 H : TESTED A T [facility] 6720 ([facility]) (test code = [facility], 153) 96008: Dimension Warehouse Supervisor/Techni estefani ID = [id number] for ARUNA LATMARCELO, SJ POCT-GLUCOSE [id number] 17:09:00 Test Item Value Reference Range Interpretation Comments POC-GLUCOSE METER 129 mg/dL 70-110 H : TESTED A T [facility] 6720 ([facility]) (test code = [facility], 153) 52591: Dimension Warehouse Supervisor/Techni estefani ID = [id number] for TRE CRAWFORDGUNNER [id number] 16:14:00 Test Item Value Reference Range Interpretation Comments ACTIVATED CLOTTING TIME 202 sec : 74 -137 seconds, (BEAKER) (test code = Baseli ne: TESTED AT 441) [facility] 67[facility], 770 30: Dimension Warehouse Supervisor/Techni estefani ID = [id number] for DAILY HOGUE POCT-GLUCOSE [id number] 15:08:00 Test Item Value Reference Range Interpretation Comments POC-GLUCOSE METER 126 mg/dL 70-110 H : TESTED A T [facility] 6720 ([facility]) (test code = [facility], 1538) 90107: Dimension Warehouse Supervisor/Techni estefani ID = [id number] for FERNANDA YOUNGER POCT-GLUCOSE [id number] 14:35:00 Test Item Value Reference Range Interpretation Comments POC-GLUCOSE METER 137 mg/dL 70-110 H : TESTED A T [facility] 6720 (BEAKER) (test code = DASIA Garcia [facility], 1538) 48295: Dimension Warehouse Supervisor/Techni estefani ID = [id number] for TYRONE VAZQUEZ (CELLAVISION MANUAL DIFF)2019-11-15 09:51:00 Test Item Value Reference [...] CONCENTRATION Adequate (CELLAVISION)(BEAKER) (test code = 3438) Dimension Warehouse Supervisor ID - Daily OverholtUser comments: Slide comments:POCT-GLUCOSE METER 2019-11-15 08:08:00 Test Item Value Reference Range Interpretation Comments POC-GLUCOSE METER 128 mg/dL 70-110 H : TESTED A T [facility] 6720 (BEAKER) (test code = D[facility]IA Garcia [place], 1538) 53943: Dimension Warehouse Supervisor/Techni estefani ID = [id number] for GUNNER PANDYA BASIC METABOLIC [id number] 06:08:00 Test Item Value Reference Range Interpretation [...] S NOT APPLICABLE FOR DIALYSIS PATIEN TS. Dimension Warehouse Supervisor ID - EDASICREATINE KINASE (CK)2019-11-15 06:06:00 Test Item Value Reference Range Interpretation Comments CREATINE KINASE TOTAL (BEAKER) (test 46 U/L 29-200 code = 380) Dimension Warehouse Supervisor ID - [id number] 05:09:00 Test Item Value Reference Range Interpretation Comments PARTIAL THROMBOPLASTIN TIME 52.1 seconds 22.5-36.0 H (BEAKER) (test code = 760) PROTHROMBIN TIME/[id number] 05:08:00 Test Item Value Reference Range Interpretation [...] is2.5-3.5 for patients wiht mechanical heart valves.CBC WITH PLATELET COUNT + MANUAL DIFF 2019-11-15 05:00:00 Test Item Value Reference Range [...] 0-0 (BEAKER) (test code = 413) POCT-GLUCOSE [id number] 21:29:00 Test Item Value Reference Range Interpretation Comments POC-GLUCOSE METER 189 mg/dL 70-110 H : TESTED A T [facility] 6720 (BEAKER) (test code = DASIA Garcia [facility], 1538) 54948: Dimension Warehouse Supervisor/Techni estefani ID = [id number] for SJ HERBERT POCT-GLUCOSE [id number] 17:22:00 Test Item Value Reference Range Interpretation Comments POC-GLUCOSE METER 208 mg/dL 70-110 H : TESTED A T [facility] 6720 (BEAKER) (test code = DASIA Garcia [facility], 1538) 20616: Dimension Warehouse Supervisor/Techni estefani ID = [id number] for SUREKHA OLIVER TISSUE [id number] 16:50:00Surgical Pathology Report Case: [id number] Authorizing Provider: Star [employer] DPM Collected: 11/08/2019 03:53 PM Ordering Location: [facility] Received: 11/09/2019 09:35 AM PERIOPERATIVE SERVICES Pathologist: [...] FOR MALIGNANCY Signing Pathologist Direct Phone Line: [phone] signed by Vandana Beverly MD on 11/14/2019 at 4:50 [id number] X 4 ; [id number] X 2Non-healing surgical wound, initial encounter A. [...] red trabecular bone with no gross lesions. Technology Lead sections are submitted.Section code:A1: Smaller gardner- baca [...] gardner-red trabecular bone with no gross lesions. Technology Lead sections are s ubmitted.Section code:B1: Bone margin, en face, following decalcificationB2 automotive sales representative of hemorrhagic soft tissue and bone, following decalcificationC. Received fresh labeled with the patient's name, medical record number and "tendon/tendon sheath" is an 8.1 x 1.3 x 0.3 cm gardner-baca, congested tendon. The specimen is serially sectioned and no gross lesions are identified. Technology Lead sectionsare submitted in C1.D. Received fresh labeled with the patient's name, medical record number and "right foot eschar" is 11.5 x 11.5 x 0.8 cm aggregate of 4 irregular portions of black-baca, hyperkeratotic skin. Specimen is serially sectioned to reveal hard, hemorrhagic tissue. Technology Lead sections are submitted in D1-D2.BREANNA Nava, LEW ([facility])PERFORMEDPOCT-GLUCOSE [id number] 12:59:00 Test Item Value Reference Range Interpretation Comments POC-GLUCOSE METER 257 mg/dL 70-110 H : TESTED A T [facility] 6720 ([employer]) (test code = [facility], 1538) 32146: Dimension Warehouse Supervisor/Techni estefani ID = [id number] for OL MOS, SUREKHA POCT-GLUCOSE [id number] 08:50:00 Test Item Value Reference Range Interpretation Comments POC-GLUCOSE METER 183 mg/dL 70-110 H : TESTED A T [facility] 6720 ([employer]) (test code = [facility], 1538) 13287: Dimension Warehouse Supervisor/Techni estefani ID = [id number] for OL MOS, SUREKHA BASIC METABOLIC [id number] 06:49:00 Test Item Value Reference Range Interpretation [...] S NOT APPLICABLE FOR DIALYSIS PATIEN TS. [employer] Supervisor ID - PIAYA [id number] 06:48:00 Test Item Value Reference Range Interpretation Comments MAGNESIUM (BEAKER) (test code = 2.1 mg/dL 1.6-2.6 627) [employer] Supervisor ID - PIAYA LCBC W/PLT COUNT & AUTO [id number] 05:42:00 Test Item Value Reference Range Interpretation [...] H PERCENT (BEAKER) (test code = 2801) CALCIUM, [id number] 05:04:00 Test Item Value Reference Range Interpretation Comments CALCIUM IONIZED (BEAKER) (test 1.02 mmol/L 1.12-1.27 L code = 698) PH, BLOOD (BEAKER) (test code = 7.42 1810) POCT-GLUCOSE [id number] 21:20:00 Test Item Value Reference Range Interpretation Comments POC-GLUCOSE METER 334 mg/dL 70-110 H : TESTED Vikas Zaire [facility] 6720 (BEAKER) (test code = [place], 1538) 18237: Dimension Warehouse Supervisor/Techni estefani ID = [id number] for JAD SALGUERO POCT-GLUCOSE [id number] 17:37:00 Test Item Value Reference Range Interpretation Comments POC-GLUCOSE METER 256 mg/dL 70-110 H : TESTED A T [facility] 6720 (NOE) (test code = DASIA QUISPE [place], 1538) 27804: Dimension Warehouse Supervisor/Techni estefani ID = [id number] for JACOB LYLES SARS-COV2/RT-PCR ([facility])2019-11-13 13:07:00 Test Item Value Reference Range Interpretation Comments SARS-COV2/RT-PCR (test Negative Not Detected, Negative, code = 4627191) See external report for linked test SARS-COV-2 PERFORMING LAB [facility] KEELY (test code = 8270606) Negative result for this test determines that [...] 564(g) of the Act.Fact Sheet for Healthcare Providers:https://www.Love[employer].com/sites/default/files/product/documents/Fact_Shee m_GB_Zhpazrrlf_Jige_NIXC-QdW-0.pdfFact Sheet for Healthcare Patients:https://www.Loveju[employer].com/sites/default/files/product/ documents/Hnrz_Thevn_Hlvzxxsb_Jbpx_SMAY-MkG-2.pdfPerforming Laboratory:[facility].[place], [place] [address]UGHMT METABOLIC PANEL 2019-11-13 06:03:00 Test Item Value Reference Range Interpretation [...] S NOT APPLICABLE FOR DIALYSIS PATIEN TS. Dimension Warehouse Supervisor ID - PIAYA LPOCT-GLUCOSE [id number] 21:20:00 Test Item Value Reference Range Interpretation Comments POC-GLUCOSE METER 234 mg/dL 70-110 H : TESTED A T [facility] 6720 (BEAKER) (test code = [facility], 1538) 27250: Dimension Warehouse Supervisor/Techni estefani ID = [id number] for SA HIGGINS CRYSTAL POCT-GLUCOSE [id number] 17:07:00 Test Item Value Reference Range Interpretation Comments POC-GLUCOSE METER 233 mg/dL 70-110 H : TESTED A T [facility] 6720 (BEAKER) (test code = [facility], 1538) 80727: Dimension Warehouse Supervisor/Techni estefani ID = [id number] for GUNNER PANDYA POCT-GLUCOSE [id number] 12:06:00 Test Item Value Reference Range Interpretation Comments POC-GLUCOSE METER 248 mg/dL 70-110 H : TESTED A T [facility] 6720 (BEAKER) (test code = [facility], 1538) 22636: Dimension Warehouse Supervisor/Techni estefani ID = [id number] for GUNNER PANDYA BASIC METABOLIC [id number] 11:18:00 Test Item Value Reference Range Interpretation [...] S NOT APPLICABLE FOR DIALYSIS PATIEN TS. Dimension Warehouse Supervisor ID - JAQUELINE MOperator ID - JEREMY [id number] 11:15:00 Test Item Value Reference Range Interpretation Comments MAGNESIUM (BEAKER) (test code = 2.0 mg/dL 1.6-2.6 627) Dimension Warehouse Supervisor ID - JEREMY MPOCT-GLUCOSE [id number] 07:56:00 Test Item Value Reference Range Interpretation Comments POC-GLUCOSE METER 137 mg/dL 70-110 H : TESTED A T [facility] 6720 (BEAKER) (test code = [facility], 1538) 74805: Dimension Warehouse Supervisor/Techni estefani ID = [id number] for GUNNER PANDYA CALCIUM, [id number] 07:50:00 Test Item Value Reference Range Interpretation Comments CALCIUM IONIZED (BEAKER) (test 0.98 mmol/L 1.12-1.27 L code = 698) PH, BLOOD (BEAKER) (test code = 7.42 1810) CBC W/PLT COUNT & AUTO [id number] 06:03:00 Test Item Value Reference Range Interpretation [...] PERCENT (BEAKER) (test code = 2801) POCT-GLUCOSE [id number] 21:00:00 Test Item Value Reference Range Interpretation Comments POC-GLUCOSE METER 233 mg/dL 70-110 H : TESTED A T [facility] 6720 (BEAKER) (test code = [facility], 1538) 63181: Dimension Warehouse Supervisor/Techni estefani ID = [id number] for SJ HERBERT POCT-GLUCOSE [id number] 16:59:00 Test Item Value Reference Range Interpretation Comments POC-GLUCOSE METER 237 mg/dL 70-110 H : TESTED A T [facility] 6720 (BEAKER) (test code = [facility], 1538) 64925: Dimension Warehouse Supervisor/Techni estefani ID = [id number] for GUNNER PANDYA CREATINE KINASE (CK)2019-11-11 12:29:00 Test Item Value Reference Range Interpretation Comments CREATINE KINASE TOTAL (BEAKER) (test 32 U/L 29-200 code = 380) Dimension Warehouse Supervisor ID - ANTONY FPOCT-GLUCOSE [id number] 12:04:00 Test Item Value Reference Range Interpretation Comments POC-GLUCOSE METER 237 mg/dL 70-110 H : TESTED A T [facility] 6720 (BEAKER) (test code = [facility], 1538) 04486: Dimension Warehouse Supervisor/Techni estefani ID = [id number] for GUNNER PANDYA SURGICALLY OBTAINED CULTURE + GRAM [id number] 10:13:00 Test Item Value Reference Range Interpretation [...] No organisms seen (BEAKER) (test code = 623377) BASIC METABOLIC [id number] 08:46:00 Test Item Value Reference Range Interpretation [...] S NOT APPLICABLE FOR DIALYSIS PATIEN TS. Dimension Warehouse Supervisor SAVANNA HARDY [id number] 08:33:00 Test Item Value Reference Range Interpretation Comments MAGNESIUM (BEAKER) (test code = 2.1 mg/dL 1.6-2.6 627) Dimension Warehouse Supervisor SAVANNA HARDY FPOCT-GLUCOSE [id number] 08:11:00 Test Item Value Reference Range Interpretation Comments POC-GLUCOSE METER 177 mg/dL 70-110 H : TESTED A T [facility] 6720 (BEAKER) (test code = DASIA Garcia [place], 1538) 06125: Dimension Warehouse Supervisor/Techni estefani ID = [id number] for GUNNER PNADYA CALCIUM, [id number] 07:08:00 Test Item Value Reference Range Interpretation Comments CALCIUM IONIZED (BEAKER) (test 1.01 mmol/L 1.12-1.27 L code = 698) PH, BLOOD (BEAKER) (test code = 7.46 1810) CBC W/PLT COUNT & AUTO [id number] 06:12:00 Test Item Value Reference Range Interpretation [...] H PERCENT (BEAKER) (test code = 2801) BLOOD [id number] 06:00:00 Test Item Value Reference Range Interpretation Comments CULTURE (BEAKER) (test No growth in 5 days code = 1095) BLOOD [id number] 00:00:00 Test Item Value Reference Range Interpretation Comments CULTURE (BEAKER) (test No growth in 5 days code = 1095) POCT-GLUCOSE [id number] 20:39:00 Test Item Value Reference Range Interpretation Comments POC-GLUCOSE METER 187 mg/dL 70-110 H : TESTED A T [facility] 6720 (BEAKER) (test code = [facility], 1538) 61301: Dimension Warehouse Supervisor/Techni estefani ID = [id number] for UL ERIC, SJ POCT-GLUCOSE [id number] 12:11:00 Test Item Value Reference Range Interpretation Comments POC-GLUCOSE METER 239 mg/dL 70-110 H : TESTED A T [facility] 6720 (BEAKER) (test code = [facility], 1538) 44564: Dimension Warehouse Supervisor/Techni estefani ID = [id number] for SA MOISES JACOB BASIC METABOLIC [id number] 09:32:00 Test Item Value Reference Range Interpretation [...] S NOT APPLICABLE FOR DIALYSIS PATIEN TS. Dimension Warehouse Supervisor ID - DANITZA [id number] 09:15:00 Test Item Value Reference Range Interpretation Comments MAGNESIUM (BEAKER) (test code = 2.3 mg/dL 1.6-2.6 627) Dimension Warehouse Supervisor ID - DANITZA LPOCT-GLUCOSE [id number] 08:14:00 Test Item Value Reference Range Interpretation Comments POC-GLUCOSE METER 173 mg/dL 70-110 H : TESTED A T [facility] 6720 (BEAKER) (test code = [facility] [place] [place], 1538) 55041: Dimension Warehouse Supervisor/Techni estefani ID = [id number] for JACOB LYLES CALCIUM, [id number] 07:23:00 Test Item Value Reference Range Interpretation Comments CALCIUM IONIZED (BEAKER) (test 1.02 mmol/L 1.12-1.27 L code = 698) PH, BLOOD (BEAKER) (test code = 7.39 1810) CBC W/PLT COUNT & AUTO [id number] 06:22:00 Test Item Value Reference Range Interpretation [...] (BEAKER) (test code = 2801) VANCOMYCIN LEVEL, [id number] 06:07:00 Test Item Value Reference Range Interpretation Comments VANCOMYCIN RANDOM (BEAKER) (test 29.4 ug/mL code = 523) Reference Range: No NormalsOperator ID - PIAYA LPOCT-GLUCOSE [id number] 21:26:00 Test Item Value Reference Range Interpretation Comments POC-GLUCOSE METER 250 mg/dL 70-110 H : TESTED A T [facility] 6720 (BEAKER) (test code = [facility], 1538) 08165: Dimension Warehouse Supervisor/Techni estefani ID = [id number] for SJ HERBERT POCT-GLUCOSE [id number] 17:14:00 Test Item Value Reference Range Interpretation Comments POC-GLUCOSE METER 283 mg/dL 70-110 H : TESTED A T [facility] 6720 (BEAKER) (test code = [facility], 1538) 43791: Dimension Warehouse Supervisor/Techni estefani ID = [id number] for FA GUNNER CRAWFORD POCT-GLUCOSE [id number] 12:13:00 Test Item Value Reference Range Interpretation Comments POC-GLUCOSE METER 233 mg/dL 70-110 H : TESTED A T [facility] 6720 (BEAKER) (test code = [facility], 1538) 92334: Dimension Warehouse Supervisor/Techni estefani ID = [id number] for FA GUNNER CRAWFORD SPIN/CONCENTRATION [id number] 10:35:00 Test Item Value Reference Range Interpretation Comments CONCENTRATION CHARGED (BEAKER) (test Done code = 2657) POCT-GLUCOSE [id number] 08:01:00 Test Item Value Reference Range Interpretation Comments POC-GLUCOSE METER 195 mg/dL 70-110 H : TESTED A T [facility] 6720 (BEAKER) (test code = [facility], 1538) 78083: Dimension Warehouse Supervisor/Techni estefani ID = [id number] for FA GUNNER CRAWFORD BASIC METABOLIC [id number] 06:24:00 Test Item Value Reference Range Interpretation [...] S NOT APPLICABLE FOR DIALYSIS PATIEN TS. Dimension Warehouse Supervisor ID - [id number] 06:07:00 Test Item Value Reference Range Interpretation Comments PHOSPHORUS (BEAKER) (test code = 5.2 mg/dL 2.3-4.7 H 604) Dimension Warehouse Supervisor ID - [id number] 06:07:00 Test Item Value Reference Range Interpretation Comments MAGNESIUM (BEAKER) (test code = 2.1 mg/dL 1.6-2.6 627) Dimension Warehouse Supervisor ID - EDASICBC W/PLT COUNT & AUTO [id number] 06:02:00 Test Item Value Reference Range Interpretation [...] PERCENT (BEAKER) (test code = 2801) CALCIUM, [id number] 05:45:00 Test Item Value Reference Range Interpretation Comments CALCIUM IONIZED (BEAKER) (test 0.97 mmol/L 1.12-1.27 L code = 698) PH, BLOOD (BEAKER) (test code = 7.43 1810) POCT-GLUCOSE [id number] 21:43:00 Test Item Value Reference Range Interpretation Comments POC-GLUCOSE METER 343 mg/dL 70-110 H : TESTED A T [facility] 6720 (BEAKER) (test code = CHRISTOSDELPHINE Garcia [facility], 1538) 42482: Dimension Warehouse Supervisor/Techni estefani ID = [id number] for CA RBAJAL, TIMA RAD, FOOT, 2 VIEWS, [id number] 21:02:00Reason for exam:->post op revision fo TMA, [...] of the right foot.. Signed: Francisco Early Verified Date/Time: 11/08/2019 21:02:38 Reading Location: [address] Transitional Reading Room POCT-GLUCOSE [id number] 17:48:00 Test Item Value Reference Range Interpretation Comments POC-GLUCOSE METER 135 mg/dL 70-110 H : TESTED A T [facility] 6720 (BEAKER) (test code = [facility], 1538) 15284: Dimension Warehouse Supervisor/Techni estefani ID = [id number] for JACOB LYLES POCT-GLUCOSE [id number] 16:57:00 Test Item Value Reference Range Interpretation Comments POC-GLUCOSE METER 130 mg/dL 70-110 H : TESTED A T [facility] 6720 (BEAKER) (test code = [facility] R [facility], 1538) 78538: Dimension Warehouse Supervisor/Techni estefani ID = [id number] for ROSE GONZALES POCT-GLUCOSE [id number] 12:31:00 Test Item Value Reference Range Interpretation Comments POC-GLUCOSE METER 117 mg/dL 70-110 H : TESTED A T [facility] 6720 (BEAKER) (test code = [facility], 1538) 54941: Dimension Warehouse Supervisor/Techni estefani ID = [id number] for Destini Contreras BASIC METABOLIC [id number] 06:39:00 Test Item Value Reference Range Interpretation [...] S NOT APPLICABLE FOR DIALYSIS PATIEN TS. Dimension Warehouse Supervisor ID - DANITZA [id number] 06:38:00 Test Item Value Reference Range Interpretation Comments PHOSPHORUS (BEAKER) (test code = 5.2 mg/dL 2.3-4.7 H 604) Dimension Warehouse Supervisor ID - DANITZA [id number] 06:38:00 Test Item Value Reference Range Interpretation Comments MAGNESIUM (BEAKER) (test code = 2.1 mg/dL 1.6-2.6 627) Dimension Warehouse Supervisor ID - DANITZA LVANCOMYCIN LEVEL, [id number] 06:18:00 Test Item Value Reference Range Interpretation Comments VANCOMYCIN RANDOM (BEAKER) (test 14.1 ug/mL code = 523) Reference Range: No NormalsOperator ID - DANITZA LCBC W/PLT COUNT & AUTO [id number] 05:32:00 Test Item Value Reference Range Interpretation [...] PERCENT (BEAKER) (test code = 2801) POCT-GLUCOSE [id number] 21:15:00 Test Item Value Reference Range Interpretation Comments POC-GLUCOSE METER 199 mg/dL 70-110 H : TESTED A T [facility] 6720 (BEAKER) (test code = [facility], 153) 93740: Dimension Warehouse Supervisor/Techni estefani ID = [id number] for SA HIGGINS, CRYSTAL POCT-GLUCOSE [id number] 17:20:00 Test Item Value Reference Range Interpretation Comments POC-GLUCOSE METER 214 mg/dL 70-110 H : TESTED A T [facility] 6720 (BEAKER) (test code = [facility], 153) 42493: Dimension Warehouse Supervisor/Techni estefani ID = [id number] for SA NTOS, JACOB POCT-GLUCOSE [id number] 12:59:00 Test Item Value Reference Range Interpretation Comments POC-GLUCOSE METER 135 mg/dL 70-110 H : TESTED A T [facility] 6720 (BEAKER) (test code = DASIA Garcia [place], 1538) 77265: Dimension Warehouse Supervisor/Techni estefani ID = [id number] for JACOB LYLES POCT-GLUCOSE [id number] 06:05:00 Test Item Value Reference Range Interpretation Comments POC-GLUCOSE METER 130 mg/dL 70-110 H : TESTED A T [facility] 6720 (BEAKER) (test code = DASIA Garcia [place], 1538) 75723: Dimension Warehouse Supervisor/Techni estefani ID = [id number] for SJ HERBERT BASIC METABOLIC [id number] 05:38:00 Test Item Value Reference Range Interpretation [...] S NOT APPLICABLE FOR DIALYSIS PATIEN TS. Dimension Warehouse Supervisor ID - [id number] 05:36:00 Test Item Value Reference Range Interpretation Comments PHOSPHORUS (BEAKER) (test code = 5.1 mg/dL 2.3-4.7 H 604) Dimension Warehouse Supervisor ID - [id number] 05:36:00 Test Item Value Reference Range Interpretation Comments MAGNESIUM (BEAKER) (test code = 2.2 mg/dL 1.6-2.6 627) Dimension Warehouse Supervisor ID - EDASIPOCT-GLUCOSE [id number] 03:01:00 Test Item Value Reference Range Interpretation Comments POC-GLUCOSE METER 72 mg/dL 70-110 : TESTED A T [facility] 6720 (BEAKER) (test code = [facility], 1538) 15542: Dimension Warehouse Supervisor/Techni estefani ID = [id number] for ADRY TTIL, SJ POCT-GLUCOSE [id number] 00:16:00 Test Item Value Reference Range Interpretation Comments POC-GLUCOSE METER 94 mg/dL 70-110 : TESTED A T [facility] 6720 (BEAKER) (test code = [facility], 1538) 62759: Dimension Warehouse Supervisor/Techni estefani ID = [id number] for ADRY TTIL, SJ POCT-GLUCOSE [id number] 23:44:00 Test Item Value Reference Range Interpretation Comments POC-GLUCOSE METER 57 mg/dL 70-110 L : TESTED A T [facility] 6720 (BEAKER) (test code = [facility], [facility]8) 26014: Dimension Warehouse Supervisor/Techni estefani ID = [id number] for ADRY TTIL, SJ POCT-GLUCOSE [id number] 21:06:00 Test Item Value Reference Range Interpretation Comments POC-GLUCOSE METER 80 mg/dL 70-110 : TESTED A T [facility] 6720 (BEAKER) (test code = [facility], 1538) 98808: Dimension Warehouse Supervisor/Techni estefani ID = [id number] for ADRY TTIL, SJ POCT-GLUCOSE [id number] 18:03:00 Test Item Value Reference Range Interpretation Comments POC-GLUCOSE METER 70 mg/dL 70-110 : TESTED A T [facility] 6720 (BEAKER) (test code = [facility], 1538) 32497: Dimension Warehouse Supervisor/Techni estefani ID = [id number] for JUAN Z, EVONNE VIAL POCT-GLUCOSE [id number] 17:47:00 Test Item Value Reference Range Interpretation Comments POC-GLUCOSE METER 45 mg/dL 70-110 L : TESTED A T [facility] 6720 (BEAKER) (test code = [facility], 1538) 27785: Dimension Warehouse Supervisor/Techni estefani ID = [id number] for JUAN Z, EVONNE VIAL SARS-COV2/RT-PCR ([facility])2019-11-06 13:38:00 Test Item Value Reference Range Interpretation Comments SARS-COV2/RT-PCR (test Negative Not Detected, Negative, code = 7670044) See external report for linked test SARS-COV-2 PERFORMING LAB [facility] KEELY (test code = 3805087) Negative result for this test determines that [...] 564(g) of the Act.Fact Sheet for Healthcare Providers:https://www.[employer].com/sites/default/files/product/documents/Fact_Shee s_YZ_Isneavuuw_Wxxs_QCRV-SyX-7.pdfFact Sheet for Healthcare Patients:https://www.[employer].com/sites/default/files/product/ documents/Wgxa_Bgajr_Muygxpcs_Eite_MJOF-PpX-9.pdfPerforming Laboratory:[facility] [place], [place] [id number] 12:56:00 Test Item Value Reference Range Interpretation Comments FERRITIN (BEAKER) (test code = 1137.02 ng/mL 5.00-275.00 H 361) Dimension Warehouse Supervisor ID - NTPIRON, TIBC, % SAT. (WITHOUT FERRITIN)2019-11-06 12:36:00 Test Item Value Reference Range Interpretation Comments IRON (BEAKER) (test code = 547) 16.0 ug/dL 40.0-160.0 L TOTAL IRON BINDING CAPACITY 139 ug/dL 250-450 L (BEAKER) (test code = 769) IRON % SATURATION (2) (BEAKER) 12 % 20-55 L (test code = 2590) Dimension Warehouse Supervisor ID - NTPRAD, FOOT, MIN 3 VIEWS, [id number] 11:14:00Reason for exam:->Nonhealing right TMA stump; open [...] MDReport Verified Date/Time: 11/06/2019 11:14:48 Reading Location: [facility] Radiology Reading Room POCT-GLUCOSE [id number] 06:53:00 Test Item Value Reference Range Interpretation Comments POC-GLUCOSE METER 81 mg/dL 70-110 : TESTED A T [facility] 6720 (BEAKER) (test code = [facility] [place], 1538) 23307: Dimension Warehouse Supervisor/Techni estefani ID = [id number] for ADRY TTIL, SJ [id number] 06:44:00 Test Item Value Reference Range Interpretation Comments MAGNESIUM (BEAKER) (test code = 2.3 mg/dL 1.6-2.6 627) Dimension Warehouse Supervisor ID - [id number] 06:44:00 Test Item Value Reference Range Interpretation Comments PHOSPHORUS (BEAKER) (test code = 5.4 mg/dL 2.3-4.7 H 604) Dimension Warehouse Supervisor ID - DBPOCT-GLUCOSE [id number] 06:36:00 Test Item Value Reference Range Interpretation Comments POC-GLUCOSE METER 61 mg/dL 70-110 L : TESTED A T [facility] 6720 (BEAKER) (test code = [facility] [place], 1538) 13058: Dimension Warehouse Supervisor/Techni estefani ID = [id number] for SJ WHITAKER CBC W/PLT COUNT & AUTO [id number] 06:23:00 Test Item Value Reference Range Interpretation [...] (BEAKER) (test code = 2801) VANCOMYCIN LEVEL, [id number] 06:22:00 Test Item Value Reference Range Interpretation Comments VANCOMYCIN RANDOM (BEAKER) (test 12.3 ug/mL code = 523) Reference Range: No NormalsOperator ID - EDASIPOCT-GLUCOSE [id number] 06:07:00 Test Item Value Reference Range Interpretation Comments POC-GLUCOSE METER 42 mg/dL 70-110 L : TESTED A T [facility] 6720 (BEAKER) (test code = [facility] [place], 1538) 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 Dimension Warehouse Supervisor ID - EDASICOMPREHENSIVE METABOLIC [id number] 23:15:00 Test Item Value Reference Range Interpretation [...] S NOT APPLICABLE FOR DIALYSIS PATIEN TS. Dimension Warehouse Supervisor ID - DBLACTIC ACID, [id number] 23:09:00 Test Item Value Reference Range Interpretation Comments LACTATE BLOOD VENOUS (2) (BEAKER) 1.19 mmol/L 0.50-2.20 (test code = 2872) Dimension Warehouse Supervisor ID - DBPOCT-GLUCOSE [id number] 22:24:00 Test Item Value Reference Range Interpretation Comments POC-GLUCOSE METER 103 mg/dL 70-110 : TESTED A T [facility] 6720 (Continuity[employer] SolutionsAKER) (test code = [facility], 1538) 07168: Dimension Warehouse Supervisor/Techni estefani ID = [id number] for UL LATTIL, SJ POCT-GLUCOSE [id number] 21:50:00 Test Item Value Reference Range Interpretation Comments POC-GLUCOSE METER 63 mg/dL 70-110 L : TESTED A T [facility] 6720 (BEAKER) (test code = [facility], 1538) 38619: Dimension Warehouse Supervisor/Techni estefani ID = [id number] for ADRY TTIL, SJ POCT-GLUCOSE [id number] 21:33:00 Test Item Value Reference Range Interpretation Comments POC-GLUCOSE METER 42 mg/dL 70-110 L : TESTED A T [facility] 6720 (BEAKER) (test code = [facility], 1538) 71378: Dimension Warehouse Supervisor/Techni estefani ID = [id number] for ADRY TTIL, SJ ANAEROBIC [id number] 19:16:00 Test Item Value Reference Range Interpretation Comments CULTURE (AKER) A 2+ Same org anism has been (test code = 1095) isolated from culture(s) of the same body s ite and collection date . Repeat identification performed only after cons ultation with the [facility] microbiology laboratory.Refe r to previous cultur e of* - Cutibacterium a cnes ANAEROBIC [id number] 19:13:00 Test Item Value Reference Range Interpretation Comments CULTURE (BEAKER) (test A 2+ Cu tibacterium acnes code = 1095) POCT-GLUCOSE [id number] 11:08:00 Test Item Value Reference Range Interpretation Comments POC-GLUCOSE METER 136 mg/dL 70-110 H : TESTED A T [facility] 6720 (BEAKER) (test code = [facility] [employer] [facility], 1538) 85110: Dimension Warehouse Supervisor/Techni estefani ID = [id number] for BR JOSE, YUNIOR POCT-GLUCOSE [id number] 07:51:00 Test Item Value Reference Range Interpretation Comments POC-GLUCOSE METER 89 mg/dL 70-110 : TESTED A T [facility] 6720 (BEAKER) (test code = [facility] [employer] [facility], 1538) 09238: Dimension Warehouse Supervisor/Techni estefani ID = [id number] for IDANIA Mejia, MOJICA POCT-GLUCOSE [id number] 21:07:00 Test Item Value Reference Range Interpretation Comments POC-GLUCOSE METER 145 mg/dL 70-110 H : TESTED A T [facility] 6720 (BEAKER) (test code = [facility] [employer] [facility], 1538) 64178: Dimension Warehouse Supervisor/Techni estefani ID = [id number] for RON GODWIN POCT-GLUCOSE [id number] 14:59:00 Test Item Value Reference Range Interpretation Comments POC-GLUCOSE METER 152 mg/dL 70-110 H : TESTED A T [facility] 6720 (BEAKER) (test code = [facility], 1538) 34197: Dimension Warehouse Supervisor/Techni estefani ID = [id number] for Mims thien Mary Lou BASIC METABOLIC [id number] 10:10:00 Test Item Value Reference Range Interpretation [...] S NOT APPLICABLE FOR DIALYSIS PATIEN TS. Dimension Warehouse Supervisor ID - EDASISURGICALLY OBTAINED CULTURE + GRAM [id number] 09:54:00 Test Item Value Reference Range Interpretation Comments CULTURE (BEAKER) A <1+ Same or ganism has (test code = been isolated f rom 1095) cultures(s) of the same body site and collection date . Repeat identifi cation and susceptibil ity testing perform ed only after consultat ion with the [facility] microbiology laboratory.Refe r to previous cultur e ofCandida parap silosis GRAM STAIN 1+ WBCs RESULT (BEAKER) (test code = 1123) GRAM STAIN <1+ gram RESULT (BEAKER) negative rods (test code = 997304) GRAM STAIN <1+ gram RESULT (BEAKER) positive cocci (test code = in pairs 784674) 1+ Skin floraSURGICALLY OBTAINED CULTURE + GRAM [id number] 09:49:00 Test Item Value Reference Interpretation Comments [...] gram negative (BEAKER) (test code = rods 173100) GRAM STAIN RESULT <1+ gram positive (BEAKER) (test code = rods 822938) GRAM STAIN RESULT 2+ gram positive (BEAKER) (test code = cocci in pairs 436763) GRAM STAIN RESULT 1+ gram positive (BEAKER) (test code = cocci in clusters 027150) GRAM STAIN RESULT 1+ yeast (BEAKER) (test code = 436540) 3+ Skin lake consisting of Coagulase Negative Staphylococcus and Diphtheroid species.POCT-GLUCOSE [id number] 08:04:00 Test Item Value Reference Range Interpretation Comments POC-GLUCOSE METER 92 mg/dL 70-110 : TESTED A T [facility] 6720 (BEAKER) (test code = [facility], [facility]) [address]: Dimension Warehouse Supervisor/Techni estefani ID = [id number] for Will ia, Areiona POCT-GLUCOSE [id number] 21:49:00 Test Item Value Reference Range Interpretation Comments POC-GLUCOSE METER 155 mg/dL 70-110 H : TESTED A T [facility] 6720 (BEAKER) (test code = [facility], 153) 65297: Dimension Warehouse Supervisor/Techni estefani ID = [id number] for AN RON BAIRD POCT-GLUCOSE [id number] 18:15:00 Test Item Value Reference Range Interpretation Comments POC-GLUCOSE METER 160 mg/dL 70-110 H : TESTED A T [facility] 6720 (BEAKER) (test code = [facility], 153) 66931: Dimension Warehouse Supervisor/Techni estefani ID = [id number] for Me ndez, Celi POCT-GLUCOSE [id number] 14:24:00 Test Item Value Reference Range Interpretation Comments POC-GLUCOSE METER 182 mg/dL 70-110 H : TESTED A T [facility] 6720 (BEAKER) (test code = [facility], 153) 19130: Dimension Warehouse Supervisor/Techni estefani ID = [id number] for Me ndez, Celi POCT-GLUCOSE [id number] 09:44:00 Test Item Value Reference Range Interpretation Comments POC-GLUCOSE METER 146 mg/dL 70-110 H : TESTED A T [facility] 6720 (BEAKER) (test code = [facility] [place], 1538) 74825: Dimension Warehouse Supervisor/Techni estefani ID = [id number] for Celi Jesus BASIC METABOLIC [id number] 07:20:00 Test Item Value Reference Range Interpretation [...] S NOT APPLICABLE FOR DIALYSIS PATIEN TS. Dimension Warehouse Supervisor ID - PIAYA LCBC W/PLT COUNT & AUTO [id number] 05:47:00 Test Item Value Reference Range Interpretation [...] PERCENT (BEAKER) (test code = 2801) POCT-GLUCOSE [id number] 05:39:00 Test Item Value Reference Range Interpretation Comments POC-GLUCOSE METER 200 mg/dL 70-110 H : TESTED A T [facility] 6720 (BEAKER) (test code = [facility], 1538) 54352: Dimension Warehouse Supervisor/Techni estefani ID = [id number] for CHRIS MAJANO POCT-GLUCOSE [id number] 05:35:00 Test Item Value Reference Range Interpretation Comments POC-GLUCOSE METER 120 mg/dL 70-110 H : TESTED A T [facility] 6720 (BEAKER) (test code = [facility], 1538) 17862: Dimension Warehouse Supervisor/Techni estefani ID = [id number] for EVONNE RUBY VIAL POCT-GLUCOSE [id number] 05:25:00 Test Item Value Reference Range Interpretation Comments POC-GLUCOSE METER 126 mg/dL 70-110 H : TESTED A T [facility] 6720 (BEAKER) (test code = [facility], 1538) 47408: Dimension Warehouse Supervisor/Techni estefani ID = [id number] for Celi Jesus POCT-GLUCOSE [id number] 05:19:00 Test Item Value Reference Range Interpretation Comments POC-GLUCOSE METER 103 mg/dL 70-110 : TESTED A T [facility] 6720 (BEAKER) (test code = [facility], [facility]8) 77934: Dimension Warehouse Supervisor/Techni estefani ID = [id number] for Celi Jesus HEPATITIS B SURFACE [id number] 11:26:00 Test Item Value Reference Range Interpretation Comments HEPATITIS B SURFACE ANTIGEN (2) Nonreactive Nonreactive ([facility]) (test code = 2585) Specimen is considered negative for HBsAg.POCT-GLUCOSE [id number] 21:38:00 Test Item Value Reference Range Interpretation Comments POC-GLUCOSE METER 170 mg/dL 70-110 H : TESTED A T [facility] 6720 (BEAKER) (test code = [facility], [facility]8) 33844: Dimension Warehouse Supervisor/Techni estefani ID = [id number] for RON GODWIN POCT-GLUCOSE [id number] 17:00:00 Test Item Value Reference Range Interpretation Comments POC-GLUCOSE METER 150 mg/dL 70-110 H : TESTED A T [facility] 6720 (BEAKER) (test code = [facility], 1538) 40118: Dimension Warehouse Supervisor/Techni estefani ID = [id number] for Ma rtinez, Katie POCT-GLUCOSE [id number] 08:37:00 Test Item Value Reference Range Interpretation Comments POC-GLUCOSE METER 105 mg/dL 70-110 : TESTED A T [facility] 6720 (BEAKER) (test code = [facility], 1538) 21043: Dimension Warehouse Supervisor/Techni estefani ID = [id number] for Ma rtinez, Katie POCT-GLUCOSE [id number] 17:56:00 Test Item Value Reference Range Interpretation Comments POC-GLUCOSE METER 96 mg/dL 70-110 : TESTED A T [facility] 6720 (BEAKER) (test code = [facility] [place] [place], 1538) 99325: Dimension Warehouse Supervisor/Techni estefani ID = [id number] for ROSE CHAVEZ BLOOD GAS, [id number] 17:17:00 Test Item Value Reference Range Interpretation [...] code = 1819) 90.0 % SODIUM NA-STAT [id number] 17:17:00 Test Item Value Reference Range Interpretation Comments SODIUM (BEAKER) (test code = 381) 134 meq/L 136-145 L HGB/HCT (H&H) - STAT [id number] 17:17:00 Test Item Value Reference Range Interpretation Comments HEMOGLOBIN (BEAKER) (test code = 11.4 g/dL 13.0-16.8 L 410) HEMATOCRIT (BEAKER) (test code = 34.0 % 40.0-50.0 L 411) CALCIUM, [id number] 17:17:00 Test Item Value Reference Range Interpretation Comments CALCIUM IONIZED (BEAKER) (test 1.22 mmol/L 1.12-1.27 code = 698) PH, BLOOD (BEAKER) (test code = 7.30 1810) GLUCOSE-STAT [id number] 17:16:00 Test Item Value Reference Range Interpretation Comments GLUCOSE RANDOM (BEAKER) (test code = 92 mg/dL 70-110 652) POTASSIUM-STAT [id number] 17:16:00 Test Item Value Reference Range Interpretation Comments POTASSIUM (BEAKER) (test code = 4.3 meq/L 3.6-5.5 379) CALCIUM, [id number] 15:59:00 Test Item Value Reference Range Interpretation Comments CALCIUM IONIZED (BEAKER) (test 1.07 mmol/L 1.12-1.27 L code = 698) PH, BLOOD (BEAKER) (test code = 7.48 1810) BLOOD GAS, [id number] 15:59:00 Test Item Value Reference Range Interpretation [...] code = 1819) 50.0 % SODIUM NA-STAT [id number] 15:59:00 Test Item Value Reference Range Interpretation Comments SODIUM (BEAKER) (test code = 381) 133 meq/L 136-145 L HGB/HCT (H&H) - STAT [id number] 15:59:00 Test Item Value Reference Range Interpretation Comments HEMOGLOBIN (BEAKER) (test code = 10.8 g/dL 13.0-16.8 L 410) HEMATOCRIT (BEAKER) (test code = 32.0 % 40.0-50.0 L 411) GLUCOSE-STAT [id number] 15:58:00 Test Item Value Reference Range Interpretation Comments GLUCOSE RANDOM (BEAKER) (test code 101 mg/dL 70-110 = 652) POTASSIUM-STAT [id number] 15:58:00 Test Item Value Reference Range Interpretation Comments POTASSIUM (BEAKER) (test code = 4.1 meq/L 3.6-5.5 379) CALCIUM, [id number] 15:12:00 Test Item Value Reference Range Interpretation Comments CALCIUM IONIZED (BEAKER) (test 1.07 mmol/L 1.12-1.27 L code = 698) PH, BLOOD (BEAKER) (test code = 7.48 1810) BLOOD GAS, [id number] 15:12:00 Test Item Value Reference Range Interpretation [...] code = 1819) 50.0 % SODIUM NA-STAT [id number] 15:12:00 Test Item Value Reference Range Interpretation Comments SODIUM (BEAKER) (test code = 381) 134 meq/L 136-145 L GLUCOSE-STAT [id number] 15:12:00 Test Item Value Reference Range Interpretation Comments GLUCOSE RANDOM (BEAKER) (test code = 64 mg/dL 70-110 L 652) HGB/HCT (H&H) - STAT [id number] 15:12:00 Test Item Value Reference Range Interpretation Comments HEMOGLOBIN (BEAKER) (test code = 10.9 g/dL 13.0-16.8 L 410) HEMATOCRIT (BEAKER) (test code = 32.0 % 40.0-50.0 L 411) POTASSIUM-STAT [id number] 15:10:00 Test Item Value Reference Range Interpretation Comments POTASSIUM (BEAKER) (test code = 4.2 meq/L 3.6-5.5 379) SARS-COV2/RT-PCR ([facility])2019-10-18 09:21:00 Test Item Value Reference Range Interpretation Comments SARS-COV2/RT-PCR (test code Negative Not Detected, Negative, = 1002751) See external report for linked test SARS-COV-2 PERFORMING LAB [facility] (test code = 1218602) Negative results do not preclude SARS-CoV-2 infection [...] of the Act.Fact Sheet for Healthcare Pro viders:https://www.MyWebzz.Azingo/Documents/Xpert%20Xpress%20SARS%20CoV-2/Fact%20Sh eets/302-3802%91YGES-MIH-1%20HEALTHCARE%20PROVIDERS%20FACT%20SHEET.pdfFact Sheet for Healthcare Patients:https://www.Netsize/Documents/Xpert%20Xpress%20SARS%20CoV-2/Fact%20Sheets/302-3801%20SARS-COV -2%20PATIENT%20FACT%20SHEET.pdfPerforming Laboratory:[facility] [place], [place] [address]bessyLos Al[place], [place] [address]XXJ AND CREATININE [id number] 08:45:00 Test Item Value Reference Range Interpretation Comments BLOOD UREA NITROGEN 58 mg/dL 7-21 H (BEAKER) (test code = 354) CREATININE (BEAKER) 7.72 mg/dL 0.57-1.25 H (test code = 358) BUN/CREAT RATIO 8 Unable to ca lculate (BEAKER) (test code due to n on-numeric = [id number]) results EGFR (BEAKER) (test 7 mL/min/1.73 ESTIMAT ED GFR IS code = 1092) sq m NOT ACCURATE CREATININE CLEARANCE IN PREDICTING GLOMERULAR FILTRATION RATE . ESTIMATED GFR I S NOT APPLICABLE FOR DIALYSIS PATIEN TS. Dimension Warehouse Supervisor ID - [id number] 08:43:00 Test Item Value Reference Range Interpretation Comments SODIUM (BEAKER) (test code = 381) 137 meq/L 136-145 POTASSIUM (BEAKER) (test code = 5.1 meq/L 3.5-5.1 379) CHLORIDE (BEAKER) (test code = 382) 100 meq/L 98-107 CO2 (BEAKER) (test code = 355) 23 meq/L 22-29 Dimension Warehouse Supervisor ID - [id number] 08:43:00 Test Item Value Reference Range Interpretation Comments GLUCOSE RANDOM (BEAKER) (test code 157 mg/dL 70-105 H = 652) Dimension Warehouse Supervisor ID - [id number] 08:16:00 Test Item Value Reference Range Interpretation Comments HEMOGLOBIN (BEAKER) (test code = 11.1 GM/DL 13.7-17.5 L 410) Dimension Warehouse Supervisor ID - [id number] 08:16:00 Test Item Value Reference Range Interpretation Comments PLATELET COUNT (BEAKER) (test 259 K/CU MM 150-450 code = 756) Dimension Warehouse Supervisor ID - 6000POCT-GLUCOSE [id number] 06:26:00 Test Item Value Reference Range Interpretation Comments POC-GLUCOSE METER 129 mg/dL 70-110 H : TESTED A T [facility] 6720 (BEAKER) (test code [facility], = 1538) 25747: Dimension Warehouse Supervisor/Techni estefani ID = [id number] for JORD AN, LACRYSTAL BUN AND CREATININE [id number] 10:25:00 Test Item Value Reference Range Interpretation [...] S NOT APPLICABLE FOR DIALYSIS PATIEN TS. Dimension Warehouse Supervisor ID - [id number] 10:23:00 Test Item Value Reference Range Interpretation Comments SODIUM (BEAKER) (test code = 381) 140 meq/L 136-145 POTASSIUM (BEAKER) (test code = 4.5 meq/L 3.5-5.1 379) CHLORIDE (BEAKER) (test code = 382) 101 meq/L 98-107 CO2 (BEAKER) (test code = 355) 26 meq/L 22-29 Dimension Warehouse Supervisor ID - [id number] 10:23:00 Test Item Value Reference Range Interpretation Comments GLUCOSE RANDOM (BEAKER) (test code 157 mg/dL 70-105 H = 652) Dimension Warehouse Supervisor ID - [id number] 10:11:00 Test Item Value Reference Range Interpretation Comments HEMOGLOBIN (BEAKER) (test code = 12.2 GM/DL 13.7-17.5 L 410) Dimension Warehouse Supervisor ID - [id number] CULTURE + SMEAR (NON-SPUTUM)2019-08-01 12:08:00 Test Item Value Reference Range Interpretation Comments CULTURE (BEAKER) (test No acid-fast bacilli code = 1095) isolated in 42 days AFB SMEAR (BEAKER) No acid fast bacilli (test code = 994) seen FUNGUS CULTURE + [id number] 17:59:00 Test Item Value Reference Range Interpretation Comments CULTURE (BEAKER) (test No fungus isolated in code = 1095) 28 days FUNGUS SMEAR (BEAKER) No fungal elements seen (test code = 1406) POCT-GLUCOSE [id number] 12:17:00 Test Item Value Reference Range Interpretation Comments POC-GLUCOSE METER 159 mg/dL 70-110 H : TESTED A T [facility] 6720 (BEAKER) (test code = [facility] [place], 1538) 83779: Dimension Warehouse Supervisor/Techni estefani ID = [id number] for BLESSING TUTTLE POCT-GLUCOSE [id number] 08:03:00 Test Item Value Reference Range Interpretation Comments POC-GLUCOSE METER 119 mg/dL 70-110 H : [facility] (test code = [facility] [place], 1538) 15385: Dimension Warehouse Supervisor/Techni estefani ID = [id number] for Izaiah Barber BASIC METABOLIC [id number] 05:28:00 Test Item Value Reference Range Interpretation [...] S NOT APPLICABLE FOR DIALYSIS PATIEN TS. Dimension Warehouse Supervisor ID - JAQUELINE [id number] 05:26:00 Test Item Value Reference Range Interpretation Comments PHOSPHORUS (BEAKER) (test code = 6.1 mg/dL 2.3-4.7 H 604) Dimension Warehouse Supervisor ID - JAQUELINE [id number] 05:26:00 Test Item Value Reference Range Interpretation Comments MAGNESIUM (BEAKER) (test code = 2.5 mg/dL 1.6-2.6 627) Dimension Warehouse Supervisor ID - JAQUELINE MCBC W/PLT COUNT & AUTO [id number] 05:12:00 Test Item Value Reference Range Interpretation [...] PERCENT (BEAKER) (test code = 2801) POCT-GLUCOSE [id number] 21:05:00 Test Item Value Reference Range Interpretation Comments POC-GLUCOSE METER 250 mg/dL 70-110 H : TESTED A T [facility] 6720 (BEAKER) (test code = [facility], 1538) 50046: Dimension Warehouse Supervisor/Techni estefani ID = [id number] for SERENA RANKIN POCT-GLUCOSE [id number] 16:53:00 Test Item Value Reference Range Interpretation Comments POC-GLUCOSE METER 217 mg/dL 70-110 H : TESTED A T [facility] 6720 (BEAKER) (test code = [facility], 1538) 55341: Dimension Warehouse Supervisor/Techni estefani ID = [id number] for HU NTER, HIWITHA POCT-GLUCOSE [id number] 11:50:00 Test Item Value Reference Range Interpretation Comments POC-GLUCOSE METER 208 mg/dL 70-110 H : TESTED A T [facility] 6720 (BEAKER) (test code = [facility], 1538) 22767: Dimension Warehouse Supervisor/Techni estefani ID = [id number] for HU NTER, HIWITHA ANAEROBIC [id number] 10:57:00 Test Item Value Reference Range Interpretation Comments CULTURE (BEAKER) (test code A 4+ Prevotella bivia = 1095) POCT-GLUCOSE [id number] 07:24:00 Test Item Value Reference Range Interpretation Comments POC-GLUCOSE METER 231 mg/dL 70-110 H : TESTED A T [facility] 6720 (BEAKER) (test code = [facility], 1538) 06979: Dimension Warehouse Supervisor/Techni estefani ID = [id number] for HU NTER, HIWITHA BASIC METABOLIC [id number] 04:18:00 Test Item Value Reference Range Interpretation [...] S NOT APPLICABLE FOR DIALYSIS PATIEN TS. Dimension Warehouse Supervisor ID - BASSEM [id number] 04:17:00 Test Item Value Reference Range Interpretation Comments PHOSPHORUS (BEAKER) (test code = 5.1 mg/dL 2.3-4.7 H 604) Dimension Warehouse Supervisor ID - BASSEM [id number] 04:17:00 Test Item Value Reference Range Interpretation Comments MAGNESIUM (BEAKER) (test code = 2.4 mg/dL 1.6-2.6 627) Dimension Warehouse Supervisor ID - BASSEM WCBC W/PLT COUNT & AUTO [id number] 04:17:00 Test Item Value Reference Range Interpretation [...] PERCENT (BEAKER) (test code = 2801) POCT-GLUCOSE [id number] 00:03:00 Test Item Value Reference Range Interpretation Comments POC-GLUCOSE METER 245 mg/dL 70-110 H : TESTED A T [facility] 6720 (BEAKER) (test code = [facility], 153) 92176: Dimension Warehouse Supervisor/Techni estefani ID = [id number] for FRANCK SKELTON POCT-GLUCOSE [id number] 21:18:00 Test Item Value Reference Range Interpretation Comments POC-GLUCOSE METER 252 mg/dL 70-110 H : TESTED A T [facility] 6720 (BEAKER) (test code = [facility], 153) 91907: Dimension Warehouse Supervisor/Techni estefani ID = [id number] for DA KEIRY SAMO POCT-GLUCOSE [id number] 16:53:00 Test Item Value Reference Range Interpretation Comments POC-GLUCOSE METER 175 mg/dL 70-110 H : TESTED A T [facility] 6720 (BEAKER) (test code = [facility], 153) 92430: Dimension Warehouse Supervisor/Techni estefani ID = [id number] for Isaías Piedra POCT-GLUCOSE [id number] 13:58:00 Test Item Value Reference Range Interpretation Comments POC-GLUCOSE METER 191 mg/dL 70-110 H : TESTED A T [facility] 6720 (BEAKER) (test code = [facility], 1538) 23213: Dimension Warehouse Supervisor/Techni estefani ID = [id number] for Isaías Piedra POCT-GLUCOSE [id number] 11:18:00 Test Item Value Reference Range Interpretation Comments POC-GLUCOSE METER 88 mg/dL 70-110 : TESTED A T [facility] 6720 (BEAKER) (test code = [facility], 1538) 07657: Dimension Warehouse Supervisor/Techni estefani ID = [id number] for CONRELIUS SANDY POCT-GLUCOSE [id number] 07:59:00 Test Item Value Reference Range Interpretation Comments POC-GLUCOSE METER 112 mg/dL 70-110 H : TESTED A T [facility] 6720 (BEAKER) (test code = [facility], 1538) 90131: Dimension Warehouse Supervisor/Techni estefani ID = [id number] for CORNELIUS MAO BASIC METABOLIC [id number] 07:35:00 Test Item Value Reference Range Interpretation [...] S NOT APPLICABLE FOR DIALYSIS PATIEN TS. Dimension Warehouse Supervisor ID - PIAYA [id number] 07:27:00 Test Item Value Reference Range Interpretation Comments PHOSPHORUS (BEAKER) (test code = 7.1 mg/dL 2.3-4.7 H 604) Dimension Warehouse Supervisor SAVANNA BOSCH [id number] 07:27:00 Test Item Value Reference Range Interpretation Comments MAGNESIUM (BEAKER) (test code = 2.5 mg/dL 1.6-2.6 627) Dimension Warehouse Supervisor SAVANNA BOSCH LCBC W/PLT COUNT & AUTO [id number] 06:36:00 Test Item Value Reference Range Interpretation [...] PERCENT (BEAKER) (test code = 2801) POCT-GLUCOSE [id number] 21:42:00 Test Item Value Reference Range Interpretation Comments POC-GLUCOSE METER 171 mg/dL 70-110 H : TESTED A T [facility] 6720 (BEAKER) (test code = [facility], 1538) 35406: Dimension Warehouse Supervisor/Techni estefani ID = [id number] for DA VIS, KAVYA POCT-GLUCOSE [id number] 16:53:00 Test Item Value Reference Range Interpretation Comments POC-GLUCOSE METER 219 mg/dL 70-110 H : TESTED A T [facility] 6720 (BEAKER) (test code = [facility], 1538) 11665: Dimension Warehouse Supervisor/Techni estefani ID = [id number] for OR PHEY, DALE POCT-GLUCOSE [id number] 12:15:00 Test Item Value Reference Range Interpretation Comments POC-GLUCOSE METER 181 mg/dL 70-110 H : TESTED A T [facility] 6720 (BEAKER) (test code = [facility], 1538) 73704: Dimension Warehouse Supervisor/Techni estefani ID = [id number] for OR PHEY, DALE POCT-GLUCOSE [id number] 08:04:00 Test Item Value Reference Range Interpretation Comments POC-GLUCOSE METER 125 mg/dL 70-110 H : TESTED A T [facility] 6720 (BEAKER) (test code = [facility], 1538) 72291: Dimension Warehouse Supervisor/Techni estefani ID = [id number] for OR PHEY, DALE BASIC METABOLIC [id number] 05:56:00 Test Item Value Reference Range Interpretation [...] S NOT APPLICABLE FOR DIALYSIS PATIEN TS. Dimension Warehouse Supervisor ID - DANITZA [id number] 05:16:00 Test Item Value Reference Range Interpretation Comments PHOSPHORUS (BEAKER) (test code = 5.7 mg/dL 2.3-4.7 H 604) Dimension Warehouse Supervisor ID - PIZAYRA [id number] 05:16:00 Test Item Value Reference Range Interpretation Comments MAGNESIUM (BEAKER) (test code = 2.4 mg/dL 1.6-2.6 627) Dimension Warehouse Supervisor ID - DANITZA LCBC W/PLT COUNT & AUTO [id number] 05:04:00 Test Item Value Reference Range Interpretation [...] PERCENT (BEAKER) (test code = 2801) POCT-GLUCOSE [id number] 21:56:00 Test Item Value Reference Range Interpretation Comments POC-GLUCOSE METER 182 mg/dL 70-110 H : TESTED A T [facility] 6720 (BEAKER) (test code = [facility], 1538) 09694: Dimension Warehouse Supervisor/Techni estefani ID = [id number] for Cynthia Infante POCT-GLUCOSE [id number] 17:09:00 Test Item Value Reference Range Interpretation Comments POC-GLUCOSE METER 260 mg/dL 70-110 H : TESTED A T [facility] 6720 (BEAKER) (test code = DASIA Garcia [facility], 1538) 91063: Dimension Warehouse Supervisor/Techni estefani ID = [id number] for OR DALE URRUTIA POCT-GLUCOSE [id number] 12:02:00 Test Item Value Reference Range Interpretation Comments POC-GLUCOSE METER 244 mg/dL 70-110 H : TESTED A T [facility] 6720 (BEAKER) (test code = [facility] Jose [facility], 1538) 00636: Dimension Warehouse Supervisor/Techni estefani ID = [id number] for OR PHEY, DALE BASIC METABOLIC [id number] 08:22:00 Test Item Value Reference Range Interpretation [...] S NOT APPLICABLE FOR DIALYSIS PATIEN TS. Dimension Warehouse Supervisor ID - [id number] 07:57:00 Test Item Value Reference Range Interpretation Comments PHOSPHORUS (BEAKER) (test code = 5.4 mg/dL 2.3-4.7 H 604) Dimension Warehouse Supervisor ID - [id number] 07:57:00 Test Item Value Reference Range Interpretation Comments MAGNESIUM (BEAKER) (test code = 2.3 mg/dL 1.6-2.6 627) Dimension Warehouse Supervisor ID - LMPOCT-GLUCOSE [id number] 07:55:00 Test Item Value Reference Range Interpretation Comments POC-GLUCOSE METER 154 mg/dL 70-110 H : TESTED A T [facility] 6720 (BEAKER) (test code = [facility] [place], 1538) 15120: Dimension Warehouse Supervisor/Techni estefani ID = [id number] for OR DALE URRUTIA CBC W/PLT COUNT & AUTO [id number] 06:10:00 Test Item Value Reference Range Interpretation [...] (BEAKER) (test code = 2801) VANCOMYCIN LEVEL, [id number] 06:06:00 Test Item Value Reference Range Interpretation Comments VANCOMYCIN RANDOM (BEAKER) (test 15.8 ug/mL code = 523) Reference Range: No NormalsOperator ID - LMPOCT-GLUCOSE [id number] 21:02:00 Test Item Value Reference Range Interpretation Comments POC-GLUCOSE METER 231 mg/dL 70-110 H : TESTED A T [facility] 6720 (BEAKER) (test code = [facility], 153) 75727: Dimension Warehouse Supervisor/Techni estefani ID = [id number] for PE WILESTEBANJOELLO POCT-GLUCOSE [id number] 17:06:00 Test Item Value Reference Range Interpretation Comments POC-GLUCOSE METER 227 mg/dL 70-110 H : TESTED A T [facility] 6720 (BEAKER) (test code = [facility], 153) 20940: Dimension Warehouse Supervisor/Techni estefani ID = [id number] for OR PHEY, DALE POCT-GLUCOSE [id number] 12:13:00 Test Item Value Reference Range Interpretation Comments POC-GLUCOSE METER 147 mg/dL 70-110 H : TESTED A T [facility] 6720 (BEAKER) (test code = [facility], 153) 67280: Dimension Warehouse Supervisor/Techni estefani ID = [id number] for OR PHEY, DALE POCT-GLUCOSE [id number] 11:39:00 Test Item Value Reference Range Interpretation Comments POC-GLUCOSE METER 138 mg/dL 70-110 H : TESTED A T [facility] 6720 (BEAKER) (test code = [facility], 153) 22514: Dimension Warehouse Supervisor/Techni estefani ID = [id number] for Sa Izaiah Alcocer TISSUE [id number] 09:01:00Surgical Pathology Report Case: [id number] Authorizing Provider: Star Cloud DPM Collected: 06/19/2019 11:18 AM Ordering Location: [facility] Received: 06/19/2019 11:51 AM SERVICES Pathologist: Jonathan Hutchison MD Specimen: Foot, Right, right forefoot PART A RIGHT FOOT, TRANSMETATARSAL AMPUTATION:GANGRENOUS NECROSIS OF SKIN AND SOFT TISSUE.UNDERLYING ACUTE AND CHRONICOSTEOMYELITIS.STATUS POST PRIOR AMPUTATION.BONE AND SOFT TISSUE MARGINS ARE INVOLVED. Signing Pathologist Direct Phone Line: [phone] signed by Jonathan Hutchison MD on 06/22/2019 at 9:01 [id number] diagnosis: Gangrene, nonhealing wound of right heelA. [...] All three digits display gardner-yellow thickened nails. Technology Lead sections are submitted as follows:Section code: A1, skin and soft tissue margin en faceA2, previous site of amputationA3, skin lesion and underlying affected bone following decalcificationA4-A5, bone margin en face following decalcificationPA/pl PERFORMED.[facility], Department of Pathology, [address] [place] [id number], [facility], [facility], [address] [place] [id number], [facility], [facility], [address] [place] [address], VICK-GLUCOSE [id number] 08:12:00 Test Item Value Reference Range Interpretation Comments POC-GLUCOSE METER 123 mg/dL 70-110 H : TESTED A T [facility] [id number] (BEAKER) (test code = DASIA Jose [facility], 1538) [id number]: [employer]ension Warehouse Supervisor/Techni estefani ID = [id number] for Izaiah Barber BASIC METABOLIC [id number] 06:52:00 Test Item Value Reference Range Interpretation [...] S NOT APPLICABLE FOR DIALYSIS PATIEN TS. [employer] Supervisor ID - BASSEM [id number] 06:51:00 Test Item Value Reference Range Interpretation Comments PHOSPHORUS (BEAKER) (test code = 6.3 mg/dL 2.3-4.7 H 604) [employer] Ware[employer] Supervisor ID - BASSEM [id number] 06:51:00 Test Item Value Reference Range Interpretation Comments MAGNESIUM (BEAKER) (test code = 2.5 mg/dL 1.6-2.6 627) Dimension Warehouse Supervisor ID - BASSEM WCBC W/PLT COUNT & AUTO [id number] 06:32:00 Test Item Value Reference Range Interpretation [...] (BEAKER) (test code = 2801) VANCOMYCIN LEVEL, [id number] 06:10:00 Test Item Value Reference Range Interpretation Comments VANCOMYCIN RANDOM (BEAKER) (test 19.5 ug/mL code = 523) Reference Range: No NormalsOperator ID - DBPOCT-GLUCOSE [id number] 21:39:00 Test Item Value Reference Range Interpretation Comments POC-GLUCOSE METER 212 mg/dL 70-110 H : TESTED A T [facility] 6720 (BEAKER) (test code = [facility], 1538) 70727: Dimension Warehouse Supervisor/Techni estefani ID = [id number] for NOEMI EDMOND POCT-GLUCOSE [id number] 17:03:00 Test Item Value Reference Range Interpretation Comments POC-GLUCOSE METER 192 mg/dL 70-110 H : TESTED A T [facility] 6720 (BEAKER) (test code = [facility], 1538) 01884: [employer]ension Warehouse Supervisor/Techni estefani ID = [id number] for HU NTER, HIWITHA POCT-GLUCOSE [id number] 12:20:00 Test Item Value Reference Range Interpretation Comments POC-GLUCOSE METER 191 mg/dL 70-110 H : TESTED A T [facility] 6720 (BEAKER) (test code = [facility], 1538) 47372: [employer] Warehouse Supervisor/Techni estefani ID = [id number] for CLAUDIA FONTANA SURGICALLY OBTAINED CULTURE + GRAM [id number] 11:27:00 Test Item Value Reference Range Interpretation Comments CULTURE (BEAKER) (test code No growth = 1095) GRAM STAIN RESULT (BEAKER) 3+ WBCs (test code = 1123) GRAM STAIN RESULT (BEAKER) No organisms seen (test code = 29030) SPIN/CONCENTRATION [id number] 08:46:00 Test Item Value Reference Range Interpretation Comments CONCENTRATION CHARGED (BEAKER) (test Done code = 2657) POCT-GLUCOSE [id number] 08:19:00 Test Item Value Reference Range Interpretation Comments POC-GLUCOSE METER 134 mg/dL 70-110 H : TESTED A T [facility] 6720 (BEAKER) (test code = [facility], 1538) 55783: [employer] Warehouse Supervisor/Techni estefani ID = [id number] for HU NTER, HIWITHA BASIC METABOLIC [id number] 04:44:00 Test Item Value Reference Range Interpretation [...] S NOT APPLICABLE FOR DIALYSIS PATIEN TS. [employer]ension Warehouse Supervisor ID - JAQUELINE [id number] 03:56:00 Test Item Value Reference Range Interpretation Comments PHOSPHORUS (BEAKER) (test code = 6.2 mg/dL 2.3-4.7 H 604) [employer] Warehouse Supervisor ID - JAQUELINE [id number] 03:56:00 Test Item Value Reference Range Interpretation Comments MAGNESIUM (BEAKER) (test code = 2.3 mg/dL 1.6-2.6 627) [employer]ension Warehouse Supervisor ID - JAQUELINE MCBC W/PLT COUNT & AUTO [id number] 03:44:00 Test Item Value Reference Range Interpretation [...] PERCENT (BEAKER) (test code = 2801) POCT-GLUCOSE [id number] 20:47:00 Test Item Value Reference Range Interpretation Comments POC-GLUCOSE METER 234 mg/dL 70-110 H : TESTED A T [facility] 6720 (BEAKER) (test code = [facility], 153) 03603: [employer] Warehouse Supervisor/Techni estefani ID = [id number] for EA GLIN, JALISSIA POCT-GLUCOSE [id number] 17:12:00 Test Item Value Reference Range Interpretation Comments POC-GLUCOSE METER 192 mg/dL 70-110 H : TESTED A T [facility] 6720 (BEAKER) (test code = [facility], 1538) 16934: [employer] Warehouse Supervisor/Techni estefani ID = [id number] for HU NTER, HIWITHA POCT-GLUCOSE [id number] 12:35:00 Test Item Value Reference Range Interpretation Comments POC-GLUCOSE METER 138 mg/dL 70-110 H : TESTED A T [facility] 6720 (BEAKER) (test code = [facility], 1538) 28941: [employer] Warehouse Supervisor/Techni estefani ID = [id number] for ZOILA SILVA POCT-GLUCOSE [id number] 10:12:00 Test Item Value Reference Range Interpretation Comments POC-GLUCOSE METER 101 mg/dL 70-110 : TESTED A T [facility] 6720 (BEAKER) (test code = [facility], 1538) 01774: Dim[employer] Warehouse Supervisor/Techni estefani ID = [id number] for Bassem Desai POCT-GLUCOSE [id number] 08:51:00 Test Item Value Reference Range Interpretation Comments POC-GLUCOSE METER 96 mg/dL 70-110 : TESTED A T [facility] 6720 (BEAKER) (test code = [facility], 1538) 57628: Dimension Warehouse Supervisor/Techni estefani ID = [id number] for Bassem House BASIC METABOLIC [id number] 05:04:00 Test Item Value Reference Range Interpretation [...] S NOT APPLICABLE FOR DIALYSIS PATIEN TS. [employer]ension Warehouse Supervisor ID - DANITZA LVANCOMYCIN LEVEL, [id number] 04:56:00 Test Item Value Reference Range Interpretation Comments VANCOMYCIN RANDOM (BEAKER) (test 18.7 ug/mL code = 523) Reference Range: No NormalsOperator ID Benjie BOSCH [id number] 04:49:00 Test Item Value Reference Range Interpretation Comments PHOSPHORUS (BEAKER) (test code = 8.4 mg/dL 2.3-4.7 H 604) [employer] Warehouse Supervisor ID - DANITZA [id number] 04:49:00 Test Item Value Reference Range Interpretation Comments MAGNESIUM (BEAKER) (test code = 2.5 mg/dL 1.6-2.6 627) [employer]ension Warehouse Supervisor ID - DANITZA LCBC W/PLT COUNT & AUTO [id number] 04:22:00 Test Item Value Reference Range Interpretation [...] code = 2801) RAD, FOOT, 2 VIEWS, [id number] 22:40:00Reason for exam:->post op TMA rightFINAL REPORT [...] no radiopaque foreign body. Signed: Mirta Alex MDReport Verified Date/Time: 06/19/2019 22:40:02 Electro nically signed by: MIRTA ALEX M.D. on 06/19/2019 10:40 PMPOCT-GLUCOSE METER 2019-06-19 21:19:00 Test Item Value Reference Range Interpretation Comments POC-GLUCOSE METER 221 mg/dL 70-110 H : TESTED Vikas Tai [facility] 6720 (BEAKER) (test code = DAS[facility] [place], 1538) 89858: Dimension Warehouse Supervisor/Techni estefani ID = [id number] for KAVYA WHITMORE POCT-GLUCOSE [id number] 21:06:00 Test Item Value Reference Range Interpretation Comments POC-GLUCOSE METER 214 mg/dL 70-110 H : TESTED A T [facility] 6720 (BEAKER) (test code = [facility], 1538) 55791: Dimension Warehouse Supervisor/Techni estefani ID = [id number] for RENEE BOONE, BLESSING POCT-GLUCOSE [id number] 21:05:00 Test Item Value Reference Range Interpretation Comments POC-GLUCOSE METER 131 mg/dL 70-110 H : TESTED A T [facility] 6720 (BEAKER) (test code = [facility], [facility]8) 48040: Dimension Warehouse Supervisor/Techni estefani ID = [id number] for RENEE HN, BLESSING POCT-GLUCOSE [id number] 21:05:00 Test Item Value Reference Range Interpretation Comments POC-GLUCOSE METER 131 mg/dL 70-110 H : TESTED A T [facility] 6720 (BEAKER) (test code = [facility], [facility]) 35541: Dimension Warehouse Supervisor/Techni estefani ID = [id number] for RENEE BOONE, BLESSING POCT-GLUCOSE [id number] 12:01:00 Test Item Value Reference Range Interpretation Comments POC-GLUCOSE METER 135 mg/dL 70-110 H : TESTED A T [facility] 6720 (BEAKER) (test code = [facility], [facility]8) 72954: Dimension Warehouse Supervisor/Techni estefani ID = [id number] for GABRIELA OLMSTEAD POCT-GLUCOSE [id number] 09:10:00 Test Item Value Reference Range Interpretation Comments POC-GLUCOSE METER 200 mg/dL 70-110 H : TESTED A T [facility] 6720 (BEAKER) (test code = [facility], [facility]8) 83258: Dimension Warehouse Supervisor/Techni estefani ID = [id number] for FRANCK SKELTON CBC W/PLT COUNT & AUTO [id number] 05:34:00 Test Item Value Reference Range Interpretation [...] (BEAKER) (test code = 2801) BASIC METABOLIC [id number] 05:28:00 Test Item Value Reference Range Interpretation [...] S NOT APPLICABLE FOR DIALYSIS PATIEN TS. Dimension Warehouse Supervisor ID - BASSEM [id number] 05:27:00 Test Item Value Reference Range Interpretation Comments PHOSPHORUS (BEAKER) (test code = 6.7 mg/dL 2.3-4.7 H 604) Dimension Warehouse Supervisor ID - BASSEM [id number] 05:27:00 Test Item Value Reference Range Interpretation Comments MAGNESIUM (BEAKER) (test code = 2.3 mg/dL 1.6-2.6 627) Dimension Warehouse Supervisor ID - BASSEM WVANCOMYCIN LEVEL, [id number] 05:25:00 Test Item Value Reference Range Interpretation Comments VANCOMYCIN RANDOM (BEAKER) (test 21.5 ug/mL code = 523) Reference Range: No NormalsOperator ID Benjie BASSEM WPOCT-GLUCOSE [id number] 17:28:00 Test Item Value Reference Range Interpretation Comments POC-GLUCOSE METER 173 mg/dL 70-110 H : TESTED A T [facility] 6720 (BEAKER) (test code = [facility], 1538) 65183: Dimension Warehouse Supervisor/Techni estefani ID = [id number] for OR PHEY, DALE POCT-GLUCOSE [id number] 14:19:00 Test Item Value Reference Range Interpretation Comments POC-GLUCOSE METER 133 mg/dL 70-110 H : TESTED A T [facility] 6720 (BEAKER) (test code = [facility], 1538) 44663: Dimension Warehouse Supervisor/Techni estefani ID = [id number] for OR PHEY, DALE POCT-GLUCOSE [id number] 10:35:00 Test Item Value Reference Range Interpretation Comments POC-GLUCOSE METER 119 mg/dL 70-110 H : TESTED A T [facility] 6720 (BEAKER) (test code = [facility] [place], 1538) 48180: Dimension Warehouse Supervisor/Techni estefani ID = [id number] for Sonya Christian CBC W/PLT COUNT & AUTO [id number] 05:31:00 Test Item Value Reference Range Interpretation [...] (BEAKER) (test code = 2801) BASIC METABOLIC [id number] 05:17:00 Test Item Value Reference Range Interpretation [...] S NOT APPLICABLE FOR DIALYSIS PATIEN TS. Dimension Warehouse Supervisor ID - JAQUELINE [id number] 05:16:00 Test Item Value Reference Range Interpretation Comments PHOSPHORUS (BEAKER) (test code = 7.5 mg/dL 2.3-4.7 H 604) Dimension Warehouse Supervisor ID - JAQUELINE [id number] 05:16:00 Test Item Value Reference Range Interpretation Comments MAGNESIUM (BEAKER) (test code = 2.4 mg/dL 1.6-2.6 627) Dimension Warehouse Supervisor ID - JAQUELINE MVANCOMYCIN LEVEL, [id number] 05:04:00 Test Item Value Reference Range Interpretation Comments VANCOMYCIN TROUGH (BEAKER) (test 25.9 ug/mL 10.0-20.0 H code = 522) Dimension Warehouse Supervisor ID - JAQUELINE MPOCT-GLUCOSE [id number] 21:00:00 Test Item Value Reference Range Interpretation Comments POC-GLUCOSE METER 148 mg/dL 70-110 H : TESTED A T [facility] 6720 (BEAKER) (test code = [facility], 1538) 62171: Dimension Warehouse Supervisor/Techni estefani ID = [id number] for RO SERENA HOLLAND POCT-GLUCOSE [id number] 19:14:00 Test Item Value Reference Range Interpretation Comments POC-GLUCOSE METER 137 mg/dL 70-110 H : TESTED A T [facility] 6720 (BEAKER) (test code = [facility], 1538) 58049: Dimension Warehouse Supervisor/Techni estefani ID = [id number] for CAMILLE BETTS POCT-GLUCOSE [id number] 17:46:00 Test Item Value Reference Range Interpretation Comments POC-GLUCOSE METER 205 mg/dL 70-110 H : TESTED A T [facility] 6720 (BEAKER) (test code = [facility], 1538) 46817: Dimension Warehouse Supervisor/Techni estefani ID = [id number] for CAMILLE BETTS POCT-GLUCOSE [id number] 17:05:00 Test Item Value Reference Range Interpretation Comments POC-GLUCOSE METER 197 mg/dL 70-110 H : TESTED A T [facility] 6720 (BEAKER) (test code = [facility], 1538) 98280: Dimension Warehouse Supervisor/Techni estefani ID = [id number] for CAMILLE BETTS BASIC METABOLIC [id number] 05:57:00 Test Item Value Reference Range Interpretation [...] S NOT APPLICABLE FOR DIALYSIS PATIEN TS. Dimension Warehouse Supervisor ID - DANITZA [id number] 05:54:00 Test Item Value Reference Range Interpretation Comments PHOSPHORUS (BEAKER) (test code = 6.2 mg/dL 2.3-4.7 H 604) Dimension Warehouse Supervisor ID - DANITZA [id number] 05:54:00 Test Item Value Reference Range Interpretation Comments MAGNESIUM (BEAKER) (test code = 2.2 mg/dL 1.6-2.6 627) Dimension Warehouse Supervisor ID - DANITZA LCBC W/PLT COUNT & AUTO [id number] 05:44:00 Test Item Value Reference Range Interpretation [...] PERCENT (BEAKER) (test code = 2801) POCT-GLUCOSE [id number] 21:37:00 Test Item Value Reference Range Interpretation Comments POC-GLUCOSE METER 262 mg/dL 70-110 H : TESTED A T [facility] 6720 (BEAKER) (test code = [facility], [facility]) 67612: Dimension Warehouse Supervisor/Techni estefani ID = [id number] for KEIRY WHITMOREO POCT-GLUCOSE [id number] 16:44:00 Test Item Value Reference Range Interpretation Comments POC-GLUCOSE METER 203 mg/dL 70-110 H : TESTED A T [facility] 6720 (BEAKER) (test code = [facility], 1538) 25879: Dimension Warehouse Supervisor/Techni estefani ID = [id number] for NATE MONROY POCT-GLUCOSE [id number] 12:05:00 Test Item Value Reference Range Interpretation Comments POC-GLUCOSE METER 233 mg/dL 70-110 H : TESTED A T [facility] 6720 (BEAKER) (test code = [facility], 1538) 44866: Dimension Warehouse Supervisor/Techni estefani ID = [id number] for HU NTER, HIWITHA POCT-GLUCOSE [id number] 08:18:00 Test Item Value Reference Range Interpretation Comments POC-GLUCOSE METER 146 mg/dL 70-110 H : TESTED Vikas Tai [facility] 6720 (BEAKER) (test code = [facility], 1538) 05677: Dimension Warehouse Supervisor/Techni estefani ID = [id number] for HU NTER, HIWITHA CBC W/PLT COUNT & AUTO [id number] 07:32:00 Test Item Value Reference Range Interpretation [...] CONCENTRATION Adequate (CELLAVISION)(BEAKER) (test code = 3438) Dimension Warehouse Supervisor ID - Daily OverholtUser comments: Slide comments:BASIC [...] S NOT APPLICABLE FOR DIALYSIS PATIEN TS. Dimension Warehouse Supervisor ID - JAQUELINE [id number] 06:29:00 Test Item Value Reference Range Interpretation Comments PHOSPHORUS (BEAKER) (test code = 4.9 mg/dL 2.3-4.7 H 604) Dimension Warehouse Supervisor ID - JAQUELINE [id number] 06:29:00 Test Item Value Reference Range Interpretation Comments MAGNESIUM (BEAKER) (test code = 2.2 mg/dL 1.6-2.6 627) Dimension Warehouse Supervisor ID - JAQUELINE MVANCOMYCIN LEVEL, [id number] 06:23:00 Test Item Value Reference Range Interpretation Comments VANCOMYCIN RANDOM (BEAKER) (test 31.1 ug/mL code = 523) Reference Range: No NormalsOperator ID - JAQUELINE MPOCT-GLUCOSE [id number] 21:18:00 Test Item Value Reference Range Interpretation Comments POC-GLUCOSE METER 233 mg/dL 70-110 H : TESTED A T [facility] 6720 (BEAKER) (test code = [facility], 153) 96538: Dimension Warehouse Supervisor/Techni estefani ID = [id number] for DA VIS, KAVYA POCT-GLUCOSE [id number] 17:24:00 Test Item Value Reference Range Interpretation Comments POC-GLUCOSE METER 252 mg/dL 70-110 H : TESTED A T [facility] 6720 (BEAKER) (test code = [facility], 153) 17249: Dimension Warehouse Supervisor/Techni estefani ID = [id number] for HU NTER, HIWITHA POCT-GLUCOSE [id number] 17:24:00 Test Item Value Reference Range Interpretation Comments POC-GLUCOSE METER 124 mg/dL 70-110 H : TESTED A T [facility] 6720 (BEAKER) (test code = [facility], 1538) 74121: Dimension Warehouse Supervisor/Techni estefani ID = [id number] for ZOILA SILVA [id number] 12:41:00 Test Item Value Reference Range Interpretation Comments ACTIVATED CLOTTING TIME 241 sec : 74 -137 seconds, (BEAKER) (test code = Amadeo ne: TESTED AT 441) [facility] [address] [facility], 770 30: Dimension Warehouse Supervisor/Techni estefani ID = [id number] for CRYSTAL SHAH HEPATITIS B SURFACE [id number] 04:57:00 Test Item Value Reference Range Interpretation Comments HEPATITIS B SURFACE ANTIGEN (2) Nonreactive Nonreactive (BEAKER) (test code = 2585) Dimension Warehouse Supervisor ID - LMBASIC METABOLIC [id number] 04:38:00 Test Item Value Reference Range Interpretation [...] S NOT APPLICABLE FOR DIALYSIS PATIEN TS. Dimension Warehouse Supervisor ID - BASSEM [id number] 04:37:00 Test Item Value Reference Range Interpretation Comments PHOSPHORUS (BEAKER) (test code = 5.6 mg/dL 2.3-4.7 H 604) Dimension Warehouse Supervisor ID - BASSEM [id number] 04:37:00 Test Item Value Reference Range Interpretation Comments MAGNESIUM (BEAKER) (test code = 2.2 mg/dL 1.6-2.6 627) Dimension Warehouse Supervisor SAVANNA LUEVANO WCBC W/PLT COUNT & AUTO [id number] 04:34:00 Test Item Value Reference Range Interpretation [...] PERCENT (BEAKER) (test code = 2801) POCT-GLUCOSE [id number] 22:31:00 Test Item Value Reference Range Interpretation Comments POC-GLUCOSE METER 203 mg/dL 70-110 H : TESTED A T [facility] 6720 (BEAKER) (test code [facility], = 1538) 59841: Dimension Warehouse Supervisor/Techni estefani ID = [id number] for Emma Leyva POCT-GLUCOSE [id number] 21:30:00 Test Item Value Reference Range Interpretation Comments POC-GLUCOSE METER 205 mg/dL 70-110 H : TESTED A T [facility] 6720 (BEAKER) (test code = [facility], 1538) 88558: Dimension Warehouse Supervisor/Techni estefani ID = [id number] for ARLEN ADAN POCT-GLUCOSE [id number] 16:56:00 Test Item Value Reference Range Interpretation Comments POC-GLUCOSE METER 210 mg/dL 70-110 H : TESTED A T [facility] 6720 (BEAKER) (test code = [facility], 1538) 89698: Dimension Warehouse Supervisor/Techni estefani ID = [id number] for MATEUS ROBLES RAD, FOOT, MIN 3 VIEWS, [id number] 15:36:00Reason for exam:->Right foot gangrene, 2nd toe [...] second and third digit amputations. Signed: Sonny Perezeport Verified Date/Time: 06/14/2019 15:36:18 Reading Location: [facility] C013X Ortho Consult Reading Room BASI METABOLIC [id number] 15:34:00 Test Item Value Reference Range Interpretation [...] S NOT APPLICABLE FOR DIALYSIS PATIEN TS. Dimension Warehouse Supervisor ID - [id number] 15:33:00 Test Item Value Reference Range Interpretation Comments PHOSPHORUS (BEAKER) (test code = 4.8 mg/dL 2.3-4.7 H 604) Dimension Warehouse Supervisor ID - [id number] 15:33:00 Test Item Value Reference Range Interpretation Comments MAGNESIUM (BEAKER) (test code = 2.2 mg/dL 1.6-2.6 627) Dimension Warehouse Supervisor ID - BSCBC W/PLT COUNT & AUTO [id number] 15:20:00 Test Item Value Reference Range Interpretation [...] PERCENT (BEAKER) (test code = 2801) POCT-GLUCOSE [id number] 12:22:00 Test Item Value Reference Range Interpretation Comments POC-GLUCOSE METER 242 mg/dL 70-110 H : TESTED A T [facility] 6720 (BEAKER) (test code = [facility], 1538) 27308: Dimension Warehouse Supervisor/Techni estefani ID = [id number] for MATEUS ROBLES POCT-GLUCOSE [id number] 12:16:00 Test Item Value Reference Range Interpretation Comments POC-GLUCOSE METER 206 mg/dL 70-110 H : TESTED A T [facility] 6720 ([facility]) (test code = [facility], 1538) 84229: Dimension Warehouse Supervisor/Techni estefani ID = [id number] for MATEUS ROBLES
== END 2021-01-05 21:33 | disposition home or self-care (01) ==
LOC: ER 15:43
DX: R33.9 Retention of urine, unspecified (principal); E11.22 Type 2 diabetes mellitus with diabetic chronic kidney disease; I12.0 Hypertensive chronic kidney disease with stage 5 chronic kidney disease or end stage renal disease; N18.6 End stage renal disease; Z99.2 Dependence on renal dialysis
CPT/HCPCS: 82947; 99283

== ENCOUNTER 2021-02-26 11:08 | Emergency (ER) | payer OTHER ==
--- OUTSIDE RECORDS SUMMARY | 2021-02-26 11:33 | XMS REPORT | Continuity of Care Document ---
:1960 Author Organization [facility] t Address [address] [place] [address] Dr. Ramirez. [address] [place] [address] Care Team Providers Name Role Phone Rose Duval MD Primary Care Physician Ruby CLOUD Attending Clinician Unavailable MARIA C DRIVER Attending Clinician Unavailable Cortez PADILLA Attending Clinician Unavailable Vikas CLOUD Attending Clinician Unavailable Steve Castañeda MD Attending Clinician Vikas Cloud DPM Attending Clinician Steve CASTAÑEDA Attending Clinician Unavailable ELIZABETH KIRBY Attending Clinician Unavailable Natalio Mixon V Attending Clinician Unavailable BENTLEY Attending Clinician Unavailable Laisha Sánchez Attending Clinician Unavailable GRIFFIN Attending Clinician Unavailable ABIMBOLA HINES Attending Clinician Unavailable NATALIO MIXON Attending Clinician Unavailable KIMBERLI HAGAN Attending Clinician Unavailable MACEDONIAN Attending Clinician Unavailable ANANDA Attending Clinician Unavailable Ruby CLOUD Admitting Clinician Unavailable MARIA C DRIVER Admitting Clinician Unavailable Cortez PADILLA Admitting Clinician Unavailable JAXSON Admitting Clinician Unavailable FRANCESCO Admitting Clinician Unavailable KNOW Admitting Clinician Unavailable RUTH ELIAS Admitting Clinician Unavailable ELI Admitting Clinician Unavailable KIMBERLI HAGAN Admitting Clinician Unavailable Payers Payer Name Policy Type Policy Number Effective Date Expiration Date S ource [employer] NEST [id number] 2020 HMO 00:00:00 CDC REVIEW [id number] 2019 2020 00:00:00 00:00:00 [facility] MEDICARE - [id number] RNPO PCP MEDICARE PART A \\T\\ [id number] B - MEDICARE OPEN ACCESS PLUS - [id number] AR[facility] Problems Condition Condition Condition Status Onset Resolution Last Treating Co mments Source Name Details Category Date Date Treatment Clinician Date Essential Essential Disease Active 2020-03 [facility] hypertensi hypertensi -16 [facility] on on 00:00: of 00 Medicin e Hyperlipid Hyperlipid Disease Active 2020-03 [facility] emia emia 03-22 [facility] 00:00: of 00 Medicin e Pressure Pressure Disease Active [facility] ulcer of ulcer of 8-10 Colleg e right right 00:00: of heel, heel, 00 Medicin stage 3 stage 3 e (HCCode) (HCCode) Status Status Disease Active [facility] post split post split 07-30 Co l[facility] thickness thickness 00:00: of skin graft skin graft 00 Me dicin e 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 [facility] stump stump 00:00: of (HCCode) (HCCode) 00 Medici n e Non-healin Non-healin Disease Active 2019-03 [facility] wound of g wound of 0- Co llege lower lower 00:00: of extremity extremity 00 Medi greyson e Eschar of Eschar of Disease Active 2019-03 [facility] heel heel 0- College 00:00: of 00 Medicin e Wound Wound Disease Active 2019-03 [facility] eschar of eschar of 0- [facility] foot foot 00:00: of 00 Medicin e Post-opera Post-opera Disease Active [facility] tive state tive state 5- Co llege 00:00: of 00 Medicin e S/P S/P Disease Active [facility] transmetat transmetat 5 Co llege arsal arsal 00:00: of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 00 Me dicin of foot, of foot, e right right (HCCode) (HCCode) Type 2 Type 2 Disease Active [facility] diabetes diabetes - Colleg e mellitus mellitus 00:00: of with with 00 Medicin diabetic diabetic e peripheral peripheral angiopathy angiopathy and and gangrene, gangrene, without without long-term long-term current current use of use of insulin insulin (HCCode) (HCCode) Encounter Encounter Disease Active [facility] for post for post 07-23 Colleg e surgical surgical 00:00: of wound wound 00 Medicin check check e PAD PAD Disease Recurre [facility] (periphera (periphera nce 5-12 Co llege l artery l artery 00:00: of disease) disease) 00 Medici n (HCCode) (HCCode) e PAD PAD Disease Active [facility] (periphera (periphera 5-12 Co llege l artery l artery 00:00: of disease) disease) 00 Medici n (HCCode) (HCCode) e Allergies, Adverse Reactions, Alerts Allergy Allergy Status Severity Reaction(s) Onset Inactive Treating Comm ents Source Name Type Date Date Clinician No Known DA Active [facility] d [facility] No Known DA Active [facility]: d [place] [id number] [facility] NO KNOWN Allergy Active [facility] Social History Social Habit Start Date Stop Date Quantity Comments Source Exposure to Not sure [facility] e SARS-CoV-2 of Medicine (event) Alcohol intake 2021-02-10 2021-02-10 Ex-drinker [facility] 00:00:00 00:00:00 (finding) of Medicine Tobacco use and 2019-07-10 2019-07-[address] [facility] exposure 00:00:00 00:00:00 non-user of Medicine Sex Ass[birth year] [facility] 00:00:00 00:00:00 of Medicine Smoking Status Start Date Stop Date Source Never smoked tobacco [facility] of [facility] Medications Ordered Filled Start Stop Current Ordering Indication Dosage Frequency Signature Comments Components Source Medication Medication Date Date Medication? Clinician (SIG) Name Name PILLO CO 2020-03 Yes by [facility] 1-30 [facility] 13:24: N route. of 17 Medicin e Sevelamer 2020-03 Yes Take by [facility] Carbonate 1-30 mouth. [facility] 800 MG TABS 13:24: of 17 Medicin e amlodipine 2020-03 Yes 10mg Take 10 mg [facility] (NORVASC) 1-30 by mouth Colleg e 10 MG 13:24: daily. of tablet 17 Medicin e carvedilol 2020-03 Yes 12.5mg Take 12.5 [facility] (COREG) 1-30 mg by [facility] 12.5 MG 13:24: mouth 2 of tablet 17 times Medicin daily e (with meals). gabapentin 2020-03 Yes 300mg Take 300 [facility] (NEURONTIN) 1-30 mg by [facility] 300 MG 13:24: mouth 3 of capsule 17 times Medicin daily. e ASPIRIN 81 2020-03 Yes Take by [place] darnell OR 1-30 mouth. [facility] 13:24: of 17 Medicin e Melatonin 3 2020-03 Yes Take by [facility] MG TABS 1-30 mouth. [facility] 13:24: of 17 Medicin e Acetaminoph 2020-03 Yes Take by [facility] en 1-30 mouth two [facility] (TYLENOL) 13:24: times of 325 MG CAPS 17 daily. Medici n e Docusate 2020-03 Yes Take by [facility] Sodium 100 1-30 mouth. College MG TABS 13:24: of 17 Medicin e senna-docus 2020-03 Yes 1{tbl} Take 1 [facility] ate 1-30 Tablet by [facility] (PERICOLACE 13:24: mouth of ) 8.6-50 MG 17 daily. Medici n per tablet e Simethicone 2020-03 Yes Take by [facility] 80 MG TABS 1-30 mouth. [facility] 13:24: of 17 Medicin e Glucagon 1 2020-03 Yes Inject [facility] MG/0.2ML 04-05 into the College SOAJ 13:24: skin. of 17 Medicin e dextrose 50 2020-03 Yes once. [facility] % injection 04-05 [facility] 13:24: of 17 Medicin e Glucose 15 2020-03 Yes Take by [place] darnell g PACK 1-30 mouth. [facility] 13:24: of 17 Medicin e insulin 2020-03 Yes Inject Ton aspart 1-30 into the [facility] (NOVOLOG) 13:24: skin 3 of 100 UNIT/ML 17 times Medicin injection daily e (before meals). Dextran 2020-03 Yes Apply to [facility] 70-Hypromel 1-30 eye. [facility] lose 13:24: of (ARTIFICIAL 17 Medicin TEARS) e 0.1-0.3 % SOLN piperacilli 2020-03 Yes 2.25g Inject [place] darnell n-tazobacta 30 2.25 g Colleg e m (ZOSYN) 13:24: into the of 2-0.25 17 vein every Medicin GM/50ML 6 hours. e IVPB atorvastati 2020-03 Yes 40mg Take 40 mg [facility] n (LIPITOR) 1-30 by mouth [facility] 40 MG 13:24: daily. of tablet 17 Medicin e ferrous 2020-03 Yes 325mg Take 325 [facility] sulfate 325 1-30 mg by [facility] (65 Fe) MG 13:24: mouth of tablet 17 daily. Medicin e insulin 2020-03 Yes Inject Ton glargine 1-30 into the [facility] (LANTUS) 13:24: skin of 100 UNIT/ML 17 nightly. Medi greyson injection e Epoetin 2020-03 Yes Inject as [facility] Bob-epbx 1-30 directed. Colle ge (RETACRIT) 13:24: of 3000 17 Medicin UNIT/ML e SOLN SENNA CO 2020-03 Yes by [facility] 11:05: N route. of 45 Medicin e Sevelamer 2020-03 Yes Take by [facility] Carbonate 1-16 mouth. [facility] 800 MG TABS 11:05: of 45 Medicin e amlodipine 2020-03 Yes 10mg Take 10 mg [facility] (NORVASC) 1-16 by mouth Colleg e 10 MG 11:05: daily. of tablet 45 Medicin e carvedilol 2020-03 Yes 12.5mg Take 12.5 [facility] (COREG) 1-16 mg by [facility] 12.5 MG 11:05: mouth 2 of tablet 45 times Medicin daily e (with meals). gabapentin 2020-03 Yes 300mg Take 300 [facility] (NEURONTIN) 1-16 mg by [facility] 300 MG 11:05: mouth 3 of capsule 45 times Medicin daily. e ASPIRIN 81 2020-03 Yes Take by [place] darnell OR -16 mouth. Chambers 11:05: of 45 Medicin e Melatonin 3 2020-03 Yes Take by [facility] MG TABS -16 mouth. [facility] 11:05: of 45 Medicin e Acetaminoph 2020-03 Yes Take by [facility] en -16 mouth two [facility] (TYLENOL) 11:05: times of 325 MG CAPS 45 daily. Medici n e Docusate 2020-03 Yes Take by [facility] r Sodium 100 03-22 mouth. [facility] MG TABS 11:05: of 45 Medicin e senna-docus 2020-03 Yes 1{tbl} Take 1 [facility] ate 16 Tablet by [facility] (PERICOLACE 11:05: mouth of ) 8.6-50 MG 45 daily. Medici n per tablet e Simethicone 2020-03 Yes Take by [facility] 80 MG TABS -16 mouth. [facility] 11:05: of 45 Medicin e Glucagon 1 2020-03 Yes Inject [facility] MG/0.2ML 03-22 into the Chambers SOAJ 11:05: skin. of 45 Medicin e dextrose 50 2020-03 Yes once. [facility] % injection 03-22 [facility] 11:05: of 45 Medicin e Glucose 15 2020-03 Yes Take by Al[facility] darnell g PACK 03-22 mouth. [facility] 11:05: of 45 Medicin e insulin 2020-03 Yes Inject Ton aspart 03-22 into the [facility] (NOVOLOG) 11:05: skin 3 of 100 UNIT/ML 45 times Medicin injection daily e (before meals). Dextran 2020-03 Yes Apply to [facility] 70-Hypromel 03-22 eye. [facility] lose 11:05: of (ARTIFICIAL 45 Medicin TEARS) e 0.1-0.3 % SOLN piperacilli 2020-03 Yes 2.25g Inject [place] darnell n-tazobacta 03-22 2.25 g Colleg e m (ZOSYN) 11:05: into the of 2-0.25 45 vein every Medicin GM/50ML 6 hours. e IVPB atorvastati 2020-03 Yes 40mg Take 40 mg Ton n (LIPITOR) 16 by mouth [facility] 40 MG 11:05: daily. of tablet 45 Medicin e ferrous 2020-03 Yes 325mg Take 325 [facility] sulfate 325 1-16 mg by [facility] (65 Fe) MG 11:05: mouth of tablet 45 daily. Medicin e insulin 2020-03 Yes Inject Ton glargine -16 into the [facility] (LANTUS) 11:05: skin of 100 UNIT/ML 45 nightly. Medi greyson injection e Epoetin 2020-03 Yes Inject as [facility] Bob-epbx 1-16 directed. Colle ge (RETACRIT) 11:05: of 3000 45 Medicin UNIT/ML e SOLN SENNA CO 2020-03 Yes by Ton 0-19 COMBINATIO Chambers 15:27: N route. of 58 Medicin e Sevelamer 2020-03 Yes Take by [facility] Carbonate 0-19 mouth. [facility] 800 MG TABS 15:27: of 58 Medicin e amlodipine 2020-03 Yes 10mg Take 10 mg [facility] (NORVASC) 0-19 by mouth Colleg e 10 MG 15:27: daily. of tablet 58 Medicin e carvedilol 2020-03 Yes 12.5mg Take 12.5 [facility] (COREG) 0-19 mg by [facility] 12.5 MG 15:27: mouth 2 of tablet 58 times Medicin daily e (with meals). gabapentin 2020-03 Yes 300mg Take 300 [facility] (NEURONTIN) 0-19 mg by [facility] 300 MG 15:27: mouth 3 of capsule 58 times Medicin daily. e ASPIRIN 81 2020-03 Yes Take by [place] darnell OR 0-19 mouth. Chambers 15:27: of 58 Medicin e Melatonin 3 2020-03 Yes Take by [facility] MG TABS 0-19 mouth. [facility] 15:27: of 58 Medicin e Acetaminoph 2020-03 Yes Take by [facility] en 0-19 mouth two College (TYLENOL) 15:27: times of 325 MG CAPS 58 daily. Medici n e Docusate 2020-03 Yes Take by [facility] Sodium 100 0-19 mouth. College MG TABS 15:27: of 58 Medicin e senna-docus 2020-03 Yes 1{tbl} Take 1 [facility] ate 0-19 Tablet by [facility] (SENOKOT S) 15:27: mouth of 8.6-50 MG 58 daily. Medicin per tablet e Simethicone 2020-03 Yes Take by [facility] 80 MG TABS 0-19 mouth. College 15:27: of 58 Medicin e Glucagon 1 2020-03 Yes Inject [facility] MG/0.2ML 0-19 into the Chambers SOAJ 15:27: skin. of 58 Medicin e dextrose 50 2020-03 Yes once. [facility] % injection 0-19 Chambers 15:27: of 58 Medicin e Glucose 15 2020-03 Yes Take by [place] darnell g PACK 0-19 mouth. Chambers 15:27: of 58 Medicin e insulin 2020-03 Yes Inject Ton aspart 0-19 into the [facility] (NOVOLOG) 15:27: skin 3 of 100 UNIT/ML 58 times Medicin injection daily e (before meals). Dextran 2020-03 Yes Apply to [facility] 70-Hypromel 0-19 eye. [facility] lose 15:27: of (ARTIFICIAL 58 Medicin TEARS) e 0.1-0.3 % SOLN piperacilli 2020-03 Yes 2.25g Inject [place] darnell n-tazobacta 0-19 2.25 g Colleg e m (ZOSYN) 15:27: into the of 2-0.25 58 vein every Medicin GM/50ML 6 hours. e IVPB atorvastati 2020-03 Yes 40mg Take 40 mg [facility] n (LIPITOR) 0-19 by mouth [facility] 40 MG 15:27: daily. of tablet 58 Medicin e ferrous 2020-03 Yes 325mg Take 325 [facility] sulfate 325 0-19 mg by [facility] (65 Fe) MG 15:27: mouth of tablet 58 daily. Medicin e insulin 2020-03 Yes Inject [facility] glargine 0-19 into the [facility] (LANTUS) 15:27: skin of 100 UNIT/ML 58 nightly. Medi greyson injection e Epoetin 2020-03 Yes Inject as [facility] Bob-epbx 0-19 directed. Colle ge (RETACRIT) 15:27: of 3000 58 Medicin UNIT/ML e SOLN SENNA CO Yes by [facility] 9-21 [facility] 14:32: N route. of 28 Medicin e Sevelamer Yes Take by [facility] Carbonate 11-25 mouth. [facility] 800 MG TABS 14:32: of 28 Medicin e amlodipine 0 Yes 10mg Take 10 mg [facility] (NORVASC) - by mouth Colleg e 10 MG 14:32: daily. of tablet 28 Medicin e carvedilol 0 Yes 12.5mg Take 12.5 [facility] (COREG) 9-21 mg by [facility] 12.5 MG 14:32: mouth 2 of tablet 28 times Medicin daily e (with meals). gabapentin 0 Yes 300mg Take 300 [facility] (NEURONTIN) - mg by [facility] 300 MG 14:32: mouth 3 of capsule 28 times Medicin daily. e ASPIRIN 81 Yes Take by [place] darnell OR - mouth. Chambers 14:32: of 28 Medicin e Melatonin 3 Yes Take by [facility] MG TABS - mouth. [facility] 14:32: of 28 Medicin e Acetaminoph Yes Take by [facility] en - mouth two [facility] (TYLENOL) 14:32: times of 325 MG CAPS 28 daily. Medici n e Docusate Yes Take by [facility] Sodium 100 - mouth. [facility] MG TABS 14:32: of 28 Medicin e senna-docus Yes 1{tbl} Take 1 [facility] ate 11-25 Tablet by [facility] (SENOKOT S) 14:32: mouth of 8.6-50 MG 28 daily. Medicin per tablet e Simethicone Yes Take by [facility] 80 MG TABS - mouth. [facility] 14:32: of 28 Medicin e Glucagon 1 Yes Inject [facility] MG/0.2ML 11-25 into the Chambers SOAJ 14:32: skin. of 28 Medicin e dextrose 50 Yes once. [facility] % injection 11-25 Chambers 14:32: of 28 Medicin e Glucose 15 Yes Take by [place] darnell g PACK 11-25 mouth. Chambers 14:32: of 28 Medicin e insulin Yes Inject Ton aspart 11-25 into the [facility] (NOVOLOG) 14:32: skin 3 of 100 UNIT/ML 28 times Medicin injection daily e (before meals). Dextran Yes Apply to [facility] 70-Hypromel 11-25 eye. College lose 14:32: of (ARTIFICIAL 28 Medicin TEARS) e 0.1-0.3 % SOLN piperacilli Yes 2.25g Inject [place] darnell n-tazobacta 11-25 2.25 g Colleg e m (ZOSYN) 14:32: into the of 2-0.25 28 vein every Medicin GM/50ML 6 hours. e IVPB ferrous Yes 325mg Take 325 [facility] sulfate 325 - mg by [facility] (65 Fe) MG 14:32: mouth of tablet 28 daily. Medicin e insulin Yes Inject [facility] glargine 11-25 into the College (LANTUS) 14:32: skin of 100 UNIT/ML 28 nightly. Medi greyson injection e Epoetin Yes Inject as [facility] Bob-epbx 11-25 directed. Colle ge (RETACRIT) 14:32: of 3000 28 Medicin UNIT/ML e SOLN SENNA CO Yes [facility] 14[facility] N route. of 28 Medicin e Sevelamer Yes Take by [facility] Carbonate 11-25 mouth. [facility] 800 MG TABS 14:32: of 28 Medicin e amlodipine Yes 10mg Take 10 mg [facility] (NORVASC) 11-25 by mouth Colleg e 10 MG 14:32: daily. of tablet 28 Medicin e carvedilol Yes 12.5mg Take 12.5 [facility] (COREG) - mg by [facility] 12.5 MG 14:32: mouth 2 of tablet 28 times Medicin daily e (with meals). gabapentin Yes 300mg Take 300 [facility] (NEURONTIN) - mg by [facility] 300 MG 14:32: mouth 3 of capsule 28 times Medicin daily. e ASPIRIN 81 Yes Take by [place] darnell OR 11-25 mouth. Chambers 14:32: of 28 Medicin e Melatonin 3 Yes Take by [facility] MG TABS 11-25 mouth. [facility] 14:32: of 28 Medicin e Acetaminoph Yes Take by [facility] en - mouth two College (TYLENOL) 14:32: times of 325 MG CAPS 28 daily. Medici n e Docusate Yes Take by [facility] Sodium 100 11-25 mouth. College MG TABS 14:32: of 28 Medicin e senna-docus Yes 1{tbl} Take 1 [facility] ate 11-25 Tablet by [facility] (SENOKOT S) 14:32: mouth of 8.6-50 MG 28 daily. Medicin per tablet e Simethicone Yes Take by [facility] 80 MG TABS 11-25 mouth. [facility] 14:32: of 28 Medicin e Glucagon 1 Yes Inject [facility] MG/0.2ML 11-25 into the Chambers SOAJ 14:32: skin. of 28 Medicin e dextrose 50 Yes once. [facility] % injection 11-25 [facility] 14:32: of 28 Medicin e Glucose 15 Yes Take by [place] darnell g PACK 11-25 mouth. College 14:32: of 28 Medicin e insulin Yes Inject Ton aspart 11-25 into the [facility] (NOVOLOG) 14:32: skin 3 of 100 UNIT/ML 28 times Medicin injection daily e (before meals). Dextran Yes Apply to [facility] 70-Hypromel 11-25 eye. [facility] lose 14:32: of (ARTIFICIAL 28 Medicin TEARS) e 0.1-0.3 % SOLN piperacilli Yes 2.25g Inject [place] darnell n-tazobacta 11-25 2.25 g Colleg e m (ZOSYN) 14:32: into the of 2-0.25 28 vein every Medicin GM/50ML 6 hours. e IVPB ferrous Yes 325mg Take 325 [facility] sulfate 325 - mg by [facility] (65 Fe) MG 14:32: mouth of tablet 28 daily. Medicin e insulin Yes Inject [facility] glargine 11-25 into the [facility] (LANTUS) 14:32: skin of 100 UNIT/ML 28 nightly. Medi greyson injection e Epoetin Yes Inject as [facility] Bob-epbx 9- directed. Colle ge (RETACRIT) 14:32: of 3000 28 Medicin UNIT/ML e SOLN atorvastati Yes 40mg Take 40 mg [facility] n (LIPITOR) 8-24 by mouth [facility] 40 MG 16:32: daily. of tablet 09 Medicin e atorvastati Yes 40mg Take 40 mg [facility] n (LIPITOR) 8-24 by mouth [facility] 40 MG 16:32: daily. of tablet 09 Medicin e SENNA CO Yes by Ton 8-24 COMBINATIO [facility] 16:32: N route. of 09 Medicin e Sevelamer Yes Take by [facility] Carbonate 8-24 mouth. [facility] 800 MG TABS 16:32: of 09 Medicin e amlodipine Yes 10mg Take 10 mg [facility] (NORVASC) 8-24 by mouth Colleg e 10 MG 16:32: daily. of tablet 09 Medicin e carvedilol Yes 12.5mg Take 12.5 [facility] (COREG) 8-24 mg by [facility] 12.5 MG 16:32: mouth 2 of tablet 09 times Medicin daily e (with meals). gabapentin Yes 300mg Take 300 [facility] (NEURONTIN) 8-24 mg by [facility] 300 MG 16:32: mouth 3 of capsule 09 times Medicin daily. e ASPIRIN 81 Yes Take by [place] darnell OR 8-24 mouth. Chambers 16:32: of 09 Medicin e Melatonin 3 Yes Take by [facility] MG TABS 8-24 mouth. [facility] 16:32: of 09 Medicin e Acetaminoph Yes Take by [facility] en 8-24 mouth two College (TYLENOL) 16:32: times of 325 MG CAPS 09 daily. Medici n e Docusate Yes Take by [facility] r Sodium 100 8-24 mouth. College MG TABS 16:32: of 09 Medicin e senna-docus Yes 1{tbl} Take 1 [facility] ate 8-24 Tablet by [facility] (SENOKOT S) 16:32: mouth of 8.6-50 MG 09 daily. Medicin per tablet e Simethicone Yes Take by [facility] 80 MG TABS 8- mouth. [facility] 16:32: of 09 Medicin e Glucagon 1 Yes Inject [facility] MG/0.2ML 10-28 into the Chambers SOAJ 16:32: skin. of 09 Medicin e dextrose 50 Yes once. [facility] % injection 10-28 College 16:32: of 09 Medicin e Glucose 15 Yes Take by [place] darnell g PACK 10-28 mouth. College 16:32: of 09 Medicin e insulin Yes Inject Ton aspart 8 into the [facility] (NOVOLOG) 16:32: skin 3 of 100 UNIT/ML 09 times Medicin injection daily e (before meals). Dextran Yes Apply to [facility] 70-Hypromel 10-28 eye. [facility] lose 16:32: of (ARTIFICIAL 09 Medicin TEARS) e 0.1-0.3 % SOLN piperacilli Yes 2.25g Inject [place] darnell n-tazobacta 10-28 2.25 g Colleg e m (ZOSYN) 16:32: into the of 2-0.25 09 vein every Medicin GM/50ML 6 hours. e IVPB atorvastati Yes 40mg Take 40 mg [facility] n (LIPITOR) 824 by mouth [facility] 40 MG 16:32: daily. of tablet 09 Medicin e ferrous Yes 325mg Take 325 [facility] sulfate 325 8-24 mg by [facility] (65 Fe) MG 16:32: mouth of tablet 09 daily. Medicin e insulin Yes Inject [facility] glargine 10-28 into the Chambers (LANTUS) 16:32: skin of 100 UNIT/ML 09 nightly. Medi greyson injection e Epoetin Yes Inject as [facility] Bob-epbx 824 directed. Colle ge (RETACRIT) 16:32: of 3000 09 Medicin UNIT/ML e SOLN SENNA CO Yes by [facility]: N route. of 31 Medicin e Sevelamer Yes Take by [facility] Carbonate 8- mouth. Chambers 800 MG TABS 16:21: of 31 Medicin e amlodipine Yes 10mg Take 10 mg [facility] (NORVASC) 8-10 by mouth Colleg e 10 MG 16:21: daily. of tablet 31 Medicin e carvedilol Yes 12.5mg Take 12.5 [facility] (COREG) 8-10 mg by [facility] 12.5 MG 16:21: mouth 2 of tablet 31 times Medicin daily e (with meals). gabapentin Yes 300mg Take 300 [facility] (NEURONTIN) 8-10 mg by Chambers 300 MG 16:21: mouth 3 of capsule 31 times Medicin daily. e ASPIRIN 81 Yes Take by [place] darnell OR 8-10 mouth. Chambers 16:21: of 31 Medicin e Melatonin 3 Yes Take by [facility] MG TABS 8-10 mouth. Chambers 16:21: of 31 Medicin e Acetaminoph Yes Take by [facility] en 8-10 mouth [facility] (TYLENOL) 16:21: times of 325 MG CAPS 31 daily. Medici n e Docusate Yes Take by [facility] Sodium 100 8-10 mouth. [facility] MG TABS 16:21: of 31 Medicin e senna-docus Yes 1{tbl} Take 1 [facility] ate 8-10 Tablet by [facility] (SENOKOT S) 16:21: mouth of 8.6-50 MG 31 daily. Medicin per tablet e Simethicone Yes Take by [facility] 80 MG TABS 8-10 mouth. Chambers 16:21: of 31 Medicin e Glucagon 1 Yes Inject [facility] MG/0.2ML 8-10 into the Chambers SOAJ 16:21: skin. of 31 Medicin e dextrose 50 Yes once. [facility] % injection 8-10 Chambers 16:21: of 31 Medicin e Glucose 15 Yes Take by [place] darnell g PACK 8-10 mouth. Chambers 16:21: of 31 Medicin e insulin Yes Inject Ton aspart 8-10 into the [facility] (NOVOLOG) 16:21: skin 3 of 100 UNIT/ML 31 times Medicin injection daily e (before meals). Dextran 2021-0 Yes Apply to [facility] 70-Hypromel 8-10 eye. College lose 16:21: of (ARTIFICIAL 31 Medicin TEARS) e 0.1-0.3 % SOLN piperacilli Yes 2.25g Inject [place] darnell n-tazobacta 8-10 2.25 g Colleg e m (ZOSYN) 16:21: into the of 2-0.25 31 vein every Medicin GM/50ML 6 hours. e IVPB atorvastati Yes 40mg Take 40 mg [facility] n (LIPITOR) 8-10 by mouth [facility] 40 MG 16:21: daily. of tablet 31 Medicin e ferrous Yes 325mg Take 325 [facility] sulfate 325 8-10 mg by [facility] (65 Fe) MG 16:21: mouth of tablet 31 daily. Medicin e insulin Yes Inject [facility] glargine 8-10 into the College (LANTUS) 16:21: skin of 100 UNIT/ML 31 nightly. Medi greyson injection e Epoetin Yes Inject as [facility] Bob-epbx 8-10 directed. Colle ge (RETACRIT) 16:21: of 3000 31 Medicin UNIT/ML e SOLN SENNA CO Yes by [facility] 6 COMBINAO Chambers 16:10: N route. of 22 Medicin e Sevelamer Yes Take by [facility] Carbonate 6-29 mouth. Chambers 800 MG TABS 16:10: of 22 Medicin e amlodipine Yes 10mg Take 10 mg [facility] (NORVASC) 6-29 by mouth Colleg e 10 MG 16:10: daily. of tablet 22 Medicin e carvedilol Yes 12.5mg Take 12.5 [facility] (COREG) 6-29 mg by [facility] 12.5 MG 16:10: mouth 2 of tablet 22 times Medicin daily e (with meals). gabapentin Yes 300mg Take 300 [facility] (NEURONTIN) 6-29 mg by Chambers 300 MG 16:10: mouth 3 of capsule 22 times Medicin daily. e ASPIRIN 81 Yes Take by [place] darnell OR 6-29 mouth. Chambers 16:10: of 22 Medicin e Melatonin 3 Yes Take by [facility] MG TABS 09-02 mouth. Chambers 16:10: of 22 Medicin e Acetaminoph Yes Take by [facility] en - mouth two [facility] (TYLENOL) 16:10: times of 325 MG CAPS 22 daily. Medici n e Docusate Yes Take by [facility] Sodium 100 - mouth. [facility] MG TABS 16:10: of 22 Medicin e senna-docus Yes 1{tbl} Take 1 [facility] ate - Tablet by [facility] (SENOKOT S) 16:10: mouth of 8.6-50 MG 22 daily. Medicin per tablet e Simethicone Yes Take by Reg[facility] lopezor 80 MG TABS 09-02 mouth. Chambers 16:10: of 22 Medicin e Glucagon 1 Yes Inject [facility] MG/0.2ML 09-02 into the Chambers SO 16:10: skin. of 22 Medicin e dextrose 50 Yes once. [facility] % injection 09-02 Chambers 16:10: of 22 Medicin e Glucose 15 Yes Take by [place] darnell g PACK 09-02 mouth. Chambers 16:10: of 22 Medicin e insulin Yes Inject [facility] aspart 09-02 into the Chambers (NOVOLOG) 16:10: skin 3 of 100 UNIT/ML 22 times Medicin injection daily e (before meals). Dextran Yes Apply to [facility] 70-Hypromel 09-02 eye. Chambers lose 16:10: of (ARTIFICIAL 22 Medicin TEARS) e 0.1-0.3 % SOLN piperacilli Yes 2.25g Inject [place] darnell n-tazobacta 09-02 2.25 g [facility] m (ZOSYN) 16:10: into the of 2-0.25 22 vein every Medicin GM/50ML 6 hours. e IVPB atorvastati Yes 40mg Take 40 mg [facility] (LIPITOR) 09-02 by mouth [facility] 40 MG 16:10: daily. of tablet 22 Medicin e ferrous Yes 325mg Take 325 [facility] sulfate 325 - mg by [facility] (65 Fe) MG 16:10: mouth of tablet 22 daily. Medicin e insulin Yes Inject [facility] glargine 6-29 into the College (LANTUS) 16:10: skin of 100 UNIT/ML 22 nightly. Medi greyson injection e Epoetin Yes Inject as [facility] Bob-epbx 6-29 directed. [facility] (RETACRIT) 16:10: of 3000 22 Medicin UNIT/ML e SOLN SENNA CO Yes by [facility] 5-18 COMBINATIO [facility] 13:26: N route. of 10 Medicin e Sevelamer Yes Take by [facility] Carbonate 5-18 mouth. [facility] 800 MG TABS 13:26: of 10 Medicin e amlodipine Yes 10mg Take 10 mg [facility] (NORVASC) 5-18 by mouth [facility] 10 MG 13:26: daily. of tablet 10 Medicin e carvedilol Yes 12.5mg Take 12.5 [facility] (COREG) 5-18 mg by [facility] 12.5 MG 13:26: mouth 2 of tablet 10 times Medicin daily e (with meals). gabapentin Yes 300mg Take 300 [facility] (NEURONTIN) 5-18 mg by [facility] 300 MG 13:26: mouth 3 of capsule 10 times Medicin daily. e ASPIRIN 81 Yes Take by [place] darnell OR 5-18 mouth. [facility] 13:26: of 10 Medicin e Melatonin 3 Yes Take by [facility] MG TABS 5-18 mouth. [facility] 13:26: of 10 Medicin e Acetaminoph Yes Take by [facility] en 5-18 mouth two [facility] (TYLENOL) 13:26: times of 325 MG CAPS 10 daily. Medici n e Docusate Yes Take by [facility] r Sodium 100 5-18 mouth. [facility] MG TABS 13:26: of 10 Medicin e senna-docus Yes 1{tbl} Take 1 [facility] ate 5-18 Tablet by [facility] (SENOKOT S) 13:26: mouth of 8.6-50 MG 10 daily. Medicin per tablet e Simethicone Yes Take by [facility] 80 MG TABS 5-18 mouth. [facility] 13:26: of 10 Medicin e Glucagon 1 Yes Inject [facility] MG/0.2ML 5-18 into the [facility] SOAJ 13:26: skin. of 10 Medicin e dextrose 50 Yes once. [facility] % injection 07-22 [facility] 13:26: of 10 Medicin e Glucose 15 Yes Take by [place] darnell g PACK 18 mouth. [facility] 13:26: of 10 Medicin e insulin Yes Inject [facility] aspart 5-18 into the [facility] (NOVOLOG) 13:26: skin 3 of 100 UNIT/ML 10 times Medicin injection daily e (before meals). Dextran Yes Apply to [facility] 70-Hypromel -18 eye. [facility] lose 13:26: of (ARTIFICIAL 10 Medicin TEARS) e 0.1-0.3 % SOLN piperacilli Yes 2.25g Inject [place] darnell n-tazobacta -18 2.25 g [facility] (ZOSYN) 13:26: into the of 2-0.25 10 vein every Medicin GM/50ML 6 hours. e IVPB atorvastati Yes 40mg Take 40 mg [facility] n (LIPITOR) 5-18 by mouth [facility] 40 MG 13:26: daily. of tablet 10 Medicin e ferrous Yes 325mg Take 325 [facility] sulfate 325 5-18 mg by [facility] (65 Fe) MG 13:26: mouth of tablet 10 daily. Medicin e insulin Yes Inject [facility] glargine -18 into the [facility] (LANTUS) 13:26: skin of 100 UNIT/ML 10 nightly. Medi greyson injection e Epoetin Yes Inject as [facility] Bob-epbx -18 directed. [facility] (RETACRIT) 13:26: of 3000 10 Medicin UNIT/ML e SOLN S[facility]NA CO [facility]: N route. of 10 Medicin e Sevelamer Yes Take by [facility] Carbonate 5-18 mouth. [facility] 800 MG TABS 13:26: of 10 Medicin e amlodipine Yes 10mg Take 10 mg [facility] (NORVASC) 5-18 by mouth [facility] e 10 MG 13:26: daily. of tablet 10 Medicin e carvedilol Yes 12.5mg Take 12.5 [facility] (COREG) 5-18 mg by [facility] 12.5 MG 13:26: mouth 2 of tablet 10 times Medicin daily e (with meals). gabapentin Yes 300mg Take 300 [facility] (NEURONTIN) 5-18 mg by [facility] 300 MG 13:26: mouth 3 of capsule 10 times Medicin daily. e ASPIRIN 81 Yes Take by [place] darnell OR 5-18 mouth. [facility] 13:26: of 10 Medicin e Melatonin 3 Yes Take by [facility] MG TABS 5-18 mouth. [facility] 13:26: of 10 Medicin e Acetaminoph Yes Take by [facility] en 5-18 mouth two [facility] (TYLENOL) 13:26: times of 325 MG CAPS 10 daily. Medici n e Docusate Yes Take by [facility] Sodium 100 5-18 mouth. [facility] MG TABS 13:26: of 10 Medicin e senna-docus Yes 1{tbl} Take 1 [facility] ate 5-18 Tablet by [facility] (SENOKOT S) 13:26: mouth of 8.6-50 MG 10 daily. Medicin per tablet e Simethicone Yes Take by [facility] 80 MG TABS 5-18 mouth. [facility] 13:26: of 10 Medicin e Glucagon 1 Yes Inject [facility] MG/0.2ML 5-18 into the [facility] SOAJ 13:26: skin. of 10 Medicin e dextrose 50 Yes once. [facility] % injection -18 [facility] 13:26: of 10 Medicin e Glucose 15 Yes Take by [place] darnell g PACK -18 mouth. [facility] 13:26: of 10 Medicin e insulin Yes Inject [facility] aspart -18 into the [facility] (NOVOLOG) 13:26: skin 3 of 100 UNIT/ML 10 times Medicin injection daily e (before meals). Dextran Yes Apply to [facility] 70-Hypromel 5-18 eye. [facility] lose 13:26: of (ARTIFICIAL 10 Medicin TEARS) e 0.1-0.3 % SOLN piperacilli Yes 2.25g Inject [place] darnell n-tazobacta 5-18 2.25 g [facility] (ZOSYN) 13:26: into the of 2-0.25 10 vein every Medicin GM/50ML 6 hours. e IVPB atorvastati Yes 40mg Take 40 mg [facility] (LIPITOR) 5-18 by mouth [facility] 40 MG 13:26: daily. of tablet 10 Medicin e ferrous Yes 325mg Take 325 [facility] sulfate 325 5-18 mg by [facility] (65 Fe) MG 13:26: mouth of tablet 10 daily. Medicin e insulin Yes Inject [facility] glargine 5-18 into the College (LANTUS) 13:26: skin of 100 UNIT/ML 10 nightly. Medi greyson injection e Epoetin Yes Inject as [facility] Bob-epbx 5-18 directed. [facility] ge (RETACRIT) 13:26: of 3000 10 Medicin UNIT/ML e SOLN collagenase Yes Apply [facility] 250 UNIT/GM 5-18 Daily to [facility] ointment 00:00: all right of 00 foot Medicin wounds e daily with wound careMeasur ements 4.0cm x 5.0 cm x 1.0 cm collagenase Yes Apply [facility] 250 UNIT/GM 5-18 Daily to [facility] ointment 00:00: all right of 00 foot Medicin wounds e daily with wound careMeasur ements 4.0cm x 5.0 cm x 1.0 cm collagenase Yes Apply [facility] 250 UNIT/GM 5-18 Daily to [facility] ointment 00:00: all right of 00 foot Medicin wounds e daily with wound careMeasur ements 4.0cm x 5.0 cm x 1.0 cm collagenase Yes Apply [facility] 250 UNIT/GM 5-18 Daily to [facility] ointment 00:00: all right of 00 foot Medicin wounds e daily with wound careMeasur ements 4.0cm x 5.0 cm x 1.0 cm collagenase Yes Apply [facility] 250 UNIT/GM 5-18 [...] 2020-0 2020- No 25mg Take 25 mg [facility] (APRESOLINE 4-20 04-20 by mouth 3 C [facility] ) 25 MG 20:48: 00:00 times of tablet 19 :00 daily. Medicin e hydrALAZINE 2020-0 Yes [facility] (APRESOLINE 4-14 [facility] ) 100 MG 00:00: of tablet 00 Medicin e NIFEdipine 2020-0 Yes 60mg Take 60 mg [facility] (ADALAT CC) 4-14 by mouth [facility] 60 MG CR 00:00: daily. of tablet 00 Medicin e Tamsulosin 0 Yes .4mg Take 0.4 [place] darnell HCl 0.4 MG 4-14 mg by [facility] CAPS 00:00: mouth of 00 daily. Medicin e hydrALAZINE 1-0 Yes [facility] (APRESOLINE 414 [facility] ) 100 MG 00:00: of tablet 00 Medicin e NIFEdipine 2020-0 Yes 60mg Take 60 mg [facility] (ADALAT CC) 4-14 by mouth [facility] 60 MG CR 00:00: daily. of tablet 00 Medicin e Tamsulosin 2020-0 Yes .4mg Take 0.4 [place] darnell HCl 0.4 MG 4-14 mg by [facility] CAPS 00:00: mouth of 00 daily. Medicin e hydrALAZINE 1-0 Yes [facility] (APRESOLINE 14 [facility] ) 100 MG 00:00: of tablet 00 Medicin e NIFEdipine 2020-0 Yes 60mg Take 60 mg [facility] (ADALAT CC) 4-14 by mouth [facility] 60 MG CR 00:00: daily. of tablet 00 Medicin e Tamsulosin 2020-0 Yes .4mg Take 0.4 [place] darnell HCl 0.4 MG 4-14 mg by [facility] CAPS 00:00: mouth of 00 daily. Medicin e hydrALAZINE 2020-0 Yes [facility] (APRESOLINE 14 [facility] ) 100 MG 00:00: of tablet 00 Medicin e NIFEdipine 2020-0 Yes 60mg Take 60 mg [facility] (ADALAT CC) 4-14 by mouth [facility] 60 MG CR 00:00: daily. of tablet 00 Medicin e Tamsulosin 2020-0 Yes .4mg Take 0.4 [place] darnell HCl 0.4 MG 4-14 mg by [facility] CAPS 00:00: mouth of 00 daily. Medicin e hydrALAZINE 1-0 Yes [facility] (APRESOLINE 414 [facility] ) 100 MG 00:00: of tablet 00 Medicin e NIFEdipine 2020-0 Yes 60mg Take 60 mg [facility] (ADALAT CC) 4-14 by mouth [facility] 60 MG CR 00:00: daily. of tablet 00 Medicin e Tamsulosin 2020-0 Yes .4mg Take 0.4 [place] darnell HCl 0.4 MG 4-14 mg by [facility] CAPS 00:00: mouth of 00 daily. Medicin e hydrALAZINE 1-0 Yes [facility] (APRESOLINE 4 [facility] ) 100 MG 00:00: of tablet 00 Medicin e hydrALAZINE 1-0 Yes [facility] (APRESOLINE 14 [facility] ) 100 MG 00:00: of tablet 00 Medicin e NIFEdipine 2020-0 Yes 60mg Take 60 mg [facility] (ADALAT CC) 4-14 by mouth [facility] 60 MG CR 00:00: daily. of tablet 00 Medicin e Tamsulosin 1-0 Yes .4mg Take 0.4 [place] darnell HCl 0.4 MG 4-14 mg by [facility] CAPS 00:00: mouth of 00 daily. Medicin e hydrALAZINE 1-0 Yes [facility] (APRESOLINE 14 [facility] ) 100 MG 00:00: of tablet 00 Medicin e NIFEdipine 2020-0 Yes 60mg Take 60 mg [facility] (ADALAT CC) 4-14 by mouth [facility] 60 MG CR 00:00: daily. of tablet 00 Medicin e Tamsulosin 2020-0 Yes .4mg Take 0.4 [place] darnell HCl 0.4 MG 4-14 mg by [facility] CAPS 00:00: mouth of 00 daily. Medicin e hydrALAZINE 1-0 Yes [facility] (APRESOLINE 14 [facility] ) 100 MG 00:00: of tablet 00 Medicin e NIFEdipine 2020-0 Yes 60mg Take 60 mg [facility] (ADALAT CC) 4-14 by mouth [facility] 60 MG CR 00:00: daily. of tablet 00 Medicin e Tamsulosin 2020-0 Yes .4mg Take 0.4 [place] darnell HCl 0.4 MG 4-14 mg by [facility] CAPS 00:00: mouth of 00 daily. Medicin e hydrALAZINE 1-0 Yes [facility] (APRESOLINE 14 [facility] ) 100 MG 00:00: of tablet 00 Medicin e NIFEdipine 1-0 Yes 60mg Take 60 mg [facility] (ADALAT CC) 4-14 by mouth [facility] 60 MG CR 00:00: daily. of tablet 00 Medicin e Tamsulosin 1-0 Yes .4mg Take 0.4 [place] darnell HCl 0.4 MG 4-14 mg by [facility] CAPS 00:00: mouth of 00 daily. Medicin e hydrALAZINE 1-0 Yes [facility] (APRESOLINE 14 [facility] ) 100 MG 00:00: of tablet 00 Medicin e NIFEdipine Yes 60mg Take 60 mg [facility] (ADALAT CC) 4-14 by mouth [facility] 60 MG CR 00:00: daily. of tablet 00 Medicin e Tamsulosin 0 Yes .4mg Take 0.4 [place] darnell HCl 0.4 MG 4-14 mg by [facility] CAPS 00:00: mouth of 00 daily. Medicin e SENNA CO 0 Yes by [facility] 3-24 COMBINATIO [facility] 22:07: N route. of 59 Medicin e hydrALAZINE 0 Yes 25mg Take 25 mg [facility] (APRESOLINE 3-24 by mouth 3 [facility] ) 25 MG 22:07: times of tablet 59 daily. Medicin e Sevelamer 0 Yes Take by [facility] Carbonate 3-24 mouth. [facility] 800 MG TABS 22:07: of 59 Medicin e amlodipine Yes 10mg Take 10 mg [facility] (NORVASC) 3-24 by mouth [facility] e 10 MG 22:07: daily. of tablet 59 Medicin e carvedilol 0 Yes 12.5mg Take 12.5 [facility] (COREG) 3-24 mg by [facility] 12.5 MG 22:07: mouth 2 of tablet 59 times Medicin daily e (with meals). gabapentin 0 Yes 300mg Take 300 [facility] (NEURONTIN) 3-24 mg by [facility] 300 MG 22:07: mouth 3 of capsule 59 times Medicin daily. e ASPIRIN 81 0 Yes Take by [place] darnell OR 3-24 mouth. [facility] 22:07: of 59 Medicin e Melatonin 3 0 Yes Take by [facility] MG TABS 3-24 mouth. [facility] 22:07: of 59 Medicin e Acetaminoph 0 Yes Take by [facility] en 3-24 mouth two [facility] (TYLENOL) 22:07: times of 325 MG CAPS 59 daily. Medici n e Docusate 0 Yes Take by [place] Sodium 100 3-24 mouth. [facility] MG TABS 22:07: of 59 Medicin e senna-docus 0 Yes 1{tbl} Take 1 [facility] ate 3-24 Tablet by [facility] (SENOKOT S) 22:07: mouth of 8.6-50 MG 59 daily. Medicin per tablet e Simethicone Yes Take by [facility] 80 MG TABS 3-24 mouth. [facility] 22:07: of 59 Medicin e Glucagon 1 Yes Inject [facility] MG/0.2ML 3-24 into the [facility] SOA 22:07: skin. of 59 Medicin e dextrose 50 0 Yes once. [facility] % injection -24 [facility] 22:07: of 59 Medicin e Glucose 15 Yes Take by [place] darnell g PACK 3-24 mouth. [facility] 22:07: of 59 Medicin e insulin Yes Inject [facility] aspart 3-24 into the [facility] (NOVOLOG) 22:07: skin 3 of 100 UNIT/ML 59 times Medicin injection daily e (before meals). Dextran Yes Apply to [facility] 70-Hypromel 3-24 eye. [facility] lose 22:07: of (ARTIFICIAL 59 Medicin TEARS) e 0.1-0.3 % SOLN piperacilli Yes 2.25g Inject [place] darnell n-tazobacta -24 2.25 g [facility] (ZOSYN) 22:07: into the of 2-0.25 59 vein every Medicin GM/50ML 6 hours. e IVPB atorvastati Yes 40mg Take 40 mg [facility] (LIPITOR) 3-24 by mouth [facility] 40 MG 22:07: daily. of tablet 59 Medicin e ferrous Yes 325mg Take 325 [facility] sulfate 325 3-24 mg by [facility] (65 Fe) MG 22:07: mouth of tablet 59 daily. Medicin e insulin Yes Inject [facility] glargine 3-24 into the [facility] (LANTUS) 22:07: skin of 100 UNIT/ML 59 nightly. Medi greyson injection e Epoetin Yes Inject as [facility] Bob-epbx 3-24 directed. [facility] (RETACRIT) 22:07: of 3000 59 Medicin UNIT/ML e SOLN SENNA CO Yes by [facility] 3-24 COMBINATIO [facility] 22:07: N route. of 59 Medicin e Sevelamer 2021-0 Yes Take by [facility] Carbonate 3-24 mouth. [facility] 800 MG TABS 22:07: of 59 Medicin e amlodipine Yes 10mg Take 10 mg [facility] (NORVASC) 3-24 by mouth [facility] 10 MG 22:07: daily. of tablet 59 Medicin e carvedilol 0 Yes 12.5mg Take 12.5 [facility] (COREG) 3-24 mg by [facility] 12.5 MG 22:07: mouth 2 of tablet 59 times Medicin daily e (with meals). gabapentin 0 Yes 300mg Take 300 [facility] (NEURONTIN) 3-24 mg by [facility] 300 MG 22:07: mouth 3 of capsule 59 times Medicin daily. e ASPIRIN 81 0 Yes Take by [place] darnell OR 3-24 mouth. [facility] 22:07: of 59 Medicin e Melatonin 3 0 Yes Take by [facility] MG TABS 3-24 mouth. [facility] 22:07: of 59 Medicin e Acetaminoph Yes Take by [facility] en 3-24 mouth [facility] (TYLENOL) 22:07: times of 325 MG CAPS 59 daily. Medici n e Docusate Yes Take by [facility] Sodium 100 3-24 mouth. [facility] MG TABS 22:07: of 59 Medicin e senna-docus Yes 1{tbl} Take 1 [facility] ate 3-24 Tablet by [facility] (SENOKOT S) 22:07: mouth of 8.6-50 MG 59 daily. Medicin per tablet e Simethicone Yes Take by [facility] 80 MG TABS 3-24 mouth. [facility] 22:07: of 59 Medicin e Glucagon 1 Yes Inject [facility] MG/0.2ML 3-24 into the [facility] SOAJ 22:07: skin. of 59 Medicin e dextrose 50 0 Yes once. [facility] % injection 3-24 [facility] 22:07: of 59 Medicin e Glucose 15 0 Yes Take by [place] darnell g PACK 3-24 mouth. [facility] 22:07: of 59 Medicin e insulin 0 Yes Inject [facility] aspart 3-24 into the [facility] (NOVOLOG) 22:07: skin 3 of 100 UNIT/ML 59 times Medicin injection daily e (before meals). Dextran Yes Apply to [facility] 70-Hypromel 3-24 eye. College lose 22:07: of (ARTIFICIAL 59 Medicin TEARS) e 0.1-0.3 % SOLN piperacilli Yes 2.25g Inject [place] darnell n-tazobacta 24 2.25 g [facility] (ZOSYN) 22:07: into the of 2-0.25 59 vein every Medicin GM/50ML 6 hours. e IVPB atorvastati Yes 40mg Take 40 mg [facility] (LIPITOR) 3-24 by mouth [facility] 40 MG 22:07: daily. of tablet 59 Medicin e ferrous Yes 325mg Take 325 [facility] sulfate 325 3-24 mg by [facility] (65 Fe) MG 22:07: mouth of tablet 59 daily. Medicin e insulin Yes Inject [facility] glargine 3-24 into the [facility] (LANTUS) 22:07: skin of 100 UNIT/ML 59 nightly. Medi greyson injection e Epoetin Yes Inject as [facility] Bob-epbx 3-24 directed. [facility] (RETACRIT) 22:07: of 3000 59 Medicin UNIT/ML e SOLN SENNA CO Yes by [facility] 3-09 [facility] 22:27: N route. of 38 Medicin e hydrALAZINE Yes 25mg Take 25 mg [facility] (APRESOLINE -09 by mouth 3 Co [facility]lege ) 25 MG 22:27: times of tablet 38 daily. Medicin e Sevelamer Yes Take by [facility] Carbonate -09 mouth. [facility] 800 MG TABS 22:27: of 38 Medicin e amlodipine Yes 10mg Take 10 mg [facility] (NORVASC) 3-09 by mouth [facility] e 10 MG 22:27: daily. of tablet 38 Medicin e carvedilol Yes 12.5mg Take 12.5 [facility] (COREG) 3-09 mg by [facility] 12.5 MG 22:27: mouth 2 of tablet 38 times Medicin daily e (with meals). gabapentin Yes 300mg Take 300 [facility] (NEURONTIN) 3-09 mg by [facility] 300 MG 22:27: mouth 3 of capsule 38 times Medicin daily. e ASPIRIN 81 Yes Take by [place] darnell OR 3-09 mouth. [facility] 22:27: of 38 Medicin e Melatonin 3 Yes Take by [facility] MG TABS 3-09 mouth. [facility] 22:27: of 38 Medicin e Acetaminoph Yes Take by [facility] en -09 mouth two [facility] (TYLENOL) 22:27: times of 325 MG CAPS 38 daily. Medici n e Docusate Yes Take by [facility] Sodium 100 - mouth. [facility] MG TABS 22:27: of 38 Medicin e senna-docus Yes 1{tbl} Take 1 [facility] ate 05-13 Tablet by [facility] (SENOKOT S) 22:27: mouth of 8.6-50 MG 38 daily. Medicin per tablet e Simethicone Yes Take by [facility] 80 MG TABS -09 mouth. [facility] 22:27: of 38 Medicin e Glucagon 1 Yes Inject [facility] MG/0.2ML 05-13 into the Chambers SOAJ 22:27: skin. of 38 Medicin e dextrose 50 Yes once. [facility] % injection 05-13 [facility] 22:27: of 38 Medicin e Glucose 15 Yes Take by [place] darenll g PACK 05-13 mouth. [facility] 22:27: of 38 Medicin e insulin Yes Inject [facility] aspart 05-13 into the [facility] (NOVOLOG) 22:27: skin 3 of 100 UNIT/ML 38 times Medicin injection daily e (before meals). Dextran Yes Apply to [facility] 70-Hypromel 05-13 eye. [facility] lose 22:27: of (ARTIFICIAL 38 Medicin TEARS) e 0.1-0.3 % SOLN piperacilli Yes 2.25g Inject [place] darnell n-tazobacta 05-13 2.25 g [facility] (ZOSYN) 22:27: into the of 2-0.25 38 vein every Medicin GM/50ML 6 hours. e IVPB atorvastati Yes 40mg Take 40 mg [facility] n (LIPITOR) 3-09 by mouth [facility] 40 MG 22:27: daily. of tablet 38 Medicin e ferrous Yes 325mg Take 325 [facility] sulfate 325 3-09 mg by [facility] (65 Fe) MG 22:27: mouth of tablet 38 daily. Medicin e insulin Yes Inject [facility] glargine 05-13 into the [facility] (LANTUS) 22:27: skin of 100 UNIT/ML 38 nightly. Medi greyson injection e Epoetin Yes Inject as [facility] Bob-epbx 05-13 directed. [facility]le [facility] (RETACRIT) 22:27: of 3000 38 Medicin UNIT/ML e SOLN SENNA CO Yes [facility] N route. of 53 Medicin e hydrALAZINE Yes 25mg Take 25 mg [facility] (APRESOLINE 2-23 by mouth 3 Co [facility]lege ) 25 MG 21:36: times of tablet 53 daily. Medicin e Sevelamer Yes Take by [facility] Carbonate 2-23 mouth. [facility] 800 MG TABS 21:36: of 53 Medicin e amlodipine Yes 10mg Take 10 mg [facility] (NORVASC) 2-23 by mouth Colle e 10 MG 21:36: daily. of tablet 53 Medicin e carvedilol Yes 12.5mg Take 12.5 [facility] (COREG) 2-23 mg by [facility] 12.5 MG 21:36: mouth 2 of tablet 53 times Medicin daily e (with meals). gabapentin Yes 300mg Take 300 [facility] (NEURONTIN) 2-23 mg by [facility] 300 MG 21:36: mouth 3 of capsule 53 times Medicin daily. e ASPIRIN 81 Yes Take by [place] darnell OR 2-23 mouth. [facility] 21:36: of 53 Medicin e Melatonin 3 Yes Take by [facility] MG TABS 2-23 mouth. [facility] 21:36: of 53 Medicin e Acetaminoph Yes Take by [facility] en 2-23 mouth [facility] (TYLENOL) 21:36: times of 325 MG CAPS 53 daily. Medici n e Docusate Yes Take by [facility] Sodium 100 2-23 mouth. [facility] MG TABS 21:36: of 53 Medicin e senna-docus Yes 1{tbl} Take 1 [facility] ate 2-23 Tablet by [facility] (SENOKOT S) 21:36: mouth of 8.6-50 MG 53 daily. Medicin per tablet e Simethicone Yes Take by [facility] 80 MG TABS 2-23 mouth. [facility] 21:36: of 53 Medicin e Glucagon 1 Yes Inject [facility] MG/0.2ML 2-23 into the [facility] SOA 21:36: skin. of 53 Medicin e dextrose 50 Yes once. [facility] % injection -23 [facility] 21:36: of 53 Medicin e Glucose 15 Yes Take by [place] darnell g PACK 2-23 mouth. [facility] 21:36: of 53 Medicin e insulin Yes Inject [facility] aspart 2-23 into the [facility] (NOVOLOG) 21:36: skin 3 of 100 UNIT/ML 53 times Medicin injection daily e (before meals). Dextran Yes Apply to [facility] 70-Hypromel 2-23 eye. [facility] lose 21:36: of (ARTIFICIAL 53 Medicin TEARS) e 0.1-0.3 % SOLN piperacilli Yes 2.25g Inject [place] darnell n-tazobacta 2-23 2.25 g [facility] (ZOSYN) 21:36: into the of 2-0.25 53 vein every Medicin GM/50ML 6 hours. e IVPB atorvastati Yes 40mg Take 40 mg [facility] n (LIPITOR) 2-23 by mouth [facility] 40 MG 21:36: daily. of tablet 53 Medicin e ferrous Yes 325mg Take 325 [facility] sulfate 325 2-23 mg by [facility] (65 Fe) MG 21:36: mouth of tablet 53 daily. Medicin e insulin Yes Inject [facility] glargine 2-23 into the [facility] (LANTUS) 21:36: skin of 100 UNIT/ML 53 nightly. Medi greyson injection e Epoetin Yes Inject as [facility] Bob-epbx 2-23 directed. [facility]le [facility] (RETACRIT) 21:36: of 3000 53 Medicin UNIT/ML e SOLN trazodone 2020-0 Yes 50mg Take 50 mg [facility] (DESYREL) 2-11 by mouth [facility] e 50 MG 00:00: daily. of tablet 00 Medicin e trazodone 2020-0 Yes 50mg Take 50 mg [facility] (DESYREL) 2-11 by mouth [facility] e 50 MG 00:00: daily. of tablet 00 Medicin e trazodone 2020-0 Yes 50mg Take 50 mg [facility] (DESYREL) 2-11 by mouth [facility] e 50 MG 00:00: daily. of tablet 00 Medicin e trazodone 2020-0 Yes 50mg Take 50 mg [facility] (DESYREL) 2-11 by mouth [facility] e 50 MG 00:00: daily. of tablet 00 Medicin e trazodone 2020-0 Yes 50mg Take 50 mg [facility] (DESYREL) 2-11 by mouth [facility] e 50 MG 00:00: daily. of tablet 00 Medicin e trazodone 2020-0 Yes 50mg Take 50 mg [facility] (DESYREL) 2-11 by mouth [facility] e 50 MG 00:00: daily. of tablet 00 Medicin e trazodone 2020-0 Yes 50mg Take 50 mg [facility] (DESYREL) 2-11 by mouth [facility] e 50 MG 00:00: daily. of tablet 00 Medicin e trazodone 2020-0 Yes 50mg Take 50 mg [facility] (DESYREL) 2-11 by mouth [facility] e 50 MG 00:00: daily. of tablet 00 Medicin e trazodone 2020-0 Yes 50mg Take 50 mg [facility] (DESYREL) 2-11 by mouth [facility] e 50 MG 00:00: daily. of tablet 00 Medicin e trazodone 2020-0 Yes 50mg Take 50 mg [facility] (DESYREL) 2-11 by mouth [facility] 50 MG 00:00: daily. of tablet 00 Medicin e trazodone 2020-0 Yes 50mg Take 50 mg [facility] (DESYREL) 2-11 by mouth [facility] e 50 MG 00:00: daily. of tablet 00 Medicin e SENNA CO Yes by [facility] 2-02 COMBINATIO [facility] 22:05: N route. of Medicin e hydrALAZINE Yes 25mg Take 25 mg [facility] (APRESOLINE 2-02 by mouth 3 [facility] ) 25 MG 22:05: times of tablet 01 daily. Medicin e Sevelamer Yes Take by [facility] Carbonate 2-02 mouth. [facility] 800 MG TABS 22:05: of Medicin e amlodipine Yes 10mg Take 10 mg [facility] (NORVASC) 2-02 by mouth [facility] e 10 MG 22:05: daily. of tablet Medicin e carvedilol Yes 12.5mg Take 12.5 [facility] (COREG) 2-02 mg by [facility] 12.5 MG 22:05: mouth 2 of tablet 01 times Medicin daily e (with meals). gabapentin Yes 300mg Take 300 [facility] (NEURONTIN) 2-02 mg by [facility] 300 MG 22:05: mouth 3 of capsule 01 times Medicin daily. e ASPIRIN 81 Yes Take by [place] darnell OR 2-02 mouth. [facility] 22:05: of Medicin e Melatonin 3 Yes Take by [facility] MG TABS 2-02 mouth. [facility] 22:05: of Medicin e Acetaminoph Yes Take by [facility] en 2-02 mouth [facility] (TYLENOL) 22:05: times of 325 MG CAPS daily. Medici n e Docusate Yes Take by [facility] Sodium 100 2-02 mouth. College MG TABS 22:05: of Medicin e senna-docus Yes 1{tbl} Take 1 [facility] ate 2-02 Tablet by [facility] (SENOKOT S) 22:05: mouth of 8.6-50 MG 01 daily. Medicin per tablet e Simethicone Yes Take by [facility] 80 MG TABS 2-02 mouth. [facility] 22:05: of Medicin e Glucagon 1 Yes Inject [facility] MG/0.2ML 04-08 into the Chambers SOAJ 22:05: skin. of 01 Medicin e dextrose 50 Yes once. [facility] % injection 04-08 [facility] 22:05: of 01 Medicin e Glucose 15 Yes Take by [place] darnell g PACK 04-08 mouth. [facility] 22:05: of 01 Medicin e insulin Yes Inject [facility] aspart 04-08 into the [facility] (NOVOLOG) 22:05: skin 3 of 100 UNIT/ML 01 times Medicin injection daily e (before meals). Dextran Yes Apply to [facility] 70-Hypromel 04-08 eye. [facility] lose 22:05: of (ARTIFICIAL Medicin TEARS) e 0.1-0.3 % SOLN piperacilli Yes 2.25g Inject [place] darnell n-tazobacta 04-08 2.25 g [facility] m (ZOSYN) 22:05: into the of 20.25 01 vein every Medicin GM/50ML 6 hours. e IVPB atorvastati Yes 40mg Take 40 mg [facility] n (LIPITOR) 04-08 by mouth [facility] 40 MG 22:05: daily. of tablet Medicin e ferrous Yes 325mg Take 325 [facility] sulfate 325 02 mg by [facility] (65 Fe) MG 22:05: mouth of tablet 01 daily. Medicin e insulin Yes Inject [facility] glargine 04-08 into the [facility] (LANTUS) 22:05: skin of 100 UNIT/ML 01 nightly. Medi greyson injection e Epoetin Yes Inject as [facility] Bob-epbx 04-08 directed. [facility]le ge (RETACRIT) 22:05: of 3000 01 Medicin UNIT/ML e SOLN Spironolact 2020- No Take by [facility] one 25 04-08-02 mouth. [facility] MG/5ML SUSP 22:05: 00:00 of 01 :00 Medicin e furosemide 2020-2020- No 40mg Take 40 mg [facility] (LASIX) 40 04-08 by mouth [facility] e[facility] MG tablet 22:04: 00:00 daily. of 57 :00 Medicin e SENNA CO Yes by [facility] 1-05 [facility] 21:48: N route. of 54 Medicin e furosemide Yes 40mg Take 40 mg [facility] (LASIX) 40 1-05 by mouth Colle ge MG tablet 21:48: daily. of 54 Medicin e hydrALAZINE Yes 25mg Take 25 mg [facility] (APRESOLINE 1-05 by mouth 3 [facility] ) 25 MG 21:48: times of tablet 54 daily. Medicin e Sevelamer Yes Take by [facility] Carbonate 1-05 mouth. [facility] 800 MG TABS 21:48: of 54 Medicin e amlodipine Yes 10mg Take 10 mg [facility] (NORVASC) 1-05 by [facility] 10 MG 21:48: daily. of tablet 54 Medicin e Spironolact Yes Take by [facility] one 25 1-05 mouth. [facility] MG/5ML SUSP 21:48: of 54 Medicin e carvedilol Yes 12.5mg Take 12.5 [facility] (COREG) 1-05 mg by [facility] 12.5 MG 21:48: mouth 2 of tablet 54 times Medicin daily e (with meals). gabapentin Yes 300mg Take 300 [facility] (NEURONTIN) 1-05 mg by [facility] 300 MG 21:48: mouth 3 of capsule 54 times Medicin daily. e ASPIRIN 81 Yes Take by [place] darnell OR 1-05 mouth. [facility] 21:48: of 54 Medicin e SENNA CO 2019-03 Yes by [facility] 0-27 [facility] 21:35: N route. of 11 Medicin e furosemide 2019-03 Yes 40mg Take 40 mg [facility] (LASIX) 40 0-27 by mouth [facility]le [facility] MG tablet 21:35: daily. of 11 Medicin e hydrALAZINE 2019-03 Yes 25mg Take 25 mg [facility] (APRESOLINE 0-27 by mouth 3 [facility] ) 25 MG 21:35: times of tablet 11 daily. Medicin e Sevelamer 2019-03 Yes Take by [facility] Carbonate 0-27 mouth. [facility] 800 MG TABS 21:35: of 11 Medicin e amlodipine 2019-03 Yes 10mg Take 10 mg [facility] (NORVASC) 0-27 by mouth [facility] 10 MG 21:35: daily. of tablet 11 Medicin e Spironolact 2019-03 Yes Take by [facility] 25 0-27 mouth. [facility] MG/5ML SUSP 21:35: of 11 Medicin e carvedilol 2019-03 Yes 12.5mg Take 12.5 [facility] (COREG) 0-27 mg by [facility] 12.5 MG 21:35: mouth 2 of tablet 11 times Medicin daily e (with meals). gabapentin 2019-03 Yes 300mg Take 300 [facility] (NEURONTIN) 0-27 mg by [facility] 300 MG 21:35: mouth 3 of capsule 11 times Medicin daily. e ASPIRIN 81 2019-03 Yes Take by [place] darnell OR 0-27 mouth. [facility] 21:35: of 11 Medicin e SENNA CO 2019-03 Yes by [facility] 0-27 [facility] 21:35: N route. of 11 Medicin e furosemide 2019-03 Yes 40mg Take 40 mg [facility] (LASIX) 40 0-27 by mouth [facility] MG tablet 21:35: daily. of 11 Medicin e hydrALAZINE 2019-03 Yes 25mg Take 25 mg [facility] (APRESOLINE 0-27 by mouth 3 [facility] ) 25 MG 21:35: times of tablet 11 daily. Medicin e Sevelamer 2019-03 Yes Take by [facility] Carbon[facility] 0-27 mouth. [facility] 800 MG TABS 21:35: of 11 Medicin e amlodipine 2019-03 Yes 10mg Take 10 mg [facility] (NORVASC) 0-27 by mouth [facility] 10 MG 21:35: daily. of tablet 11 Medicin e Spironolact 2019-03 Yes Take by [facility] one 25 0-27 mouth. [facility] MG/5ML SUSP 21:35: of 11 Medicin e carvedilol 2019-03 Yes 12.5mg Take 12.5 [facility] (COREG) 0-27 mg by [facility] 12.5 MG 21:35: mouth 2 of tablet 11 times Medicin daily e (with meals). gabapentin 2019-03 Yes 300mg Take 300 [facility] (NEURONTIN) 0-27 mg by [facility] 300 MG 21:35: mouth 3 of capsule 11 times Medicin daily. e ASPIRIN 81 2019-03 Yes Take by [place] darnell OR 0-27 mouth. [facility] 21:35: of 11 Medicin e amoxicillin 2020-1 2020- No 1{tbl} Take 1 Tab [facility] -clavulanat 0-27 10-27 by mouth 3 [facility] e 20:31: 00:00 times of (AUGMENTIN) 05 :00 daily. Medici n 500-125 MG e per tablet SENNA CO 2020-0 Yes by [facility] 9 [facility] 19:13: N route. of 16 Medicin e furosemide 2020-0 Yes 40mg Take 40 mg [facility] (LASIX) 40 9-30 by mouth [facility] MG tablet 19:13: daily. of 16 Medicin e hydrALAZINE 2020-0 Yes 25mg Take 25 mg [facility] (APRESOLINE 9- by mouth 3 [facility] ) 25 MG 19:13: times of tablet 16 daily. Medicin e Sevelamer 2020-0 Yes Take by [facility] 12-04 mouth. [facility] 800 MG TABS 19:13: of 16 Medicin e amlodipine 2020-0 Yes 10mg Take 10 mg [facility] (NORVASC) 12-04 by mouth [facility] 10 MG 19:13: daily. of tablet 16 Medicin e amoxicillin 2020-0 Yes 1{tbl} Take 1 Tab [facility] -clavulanat 9-30 by mouth 3 [facility] e 19:13: times of (AUGMENTIN) 16 daily. Medici n 500-125 MG e per tablet Spironolact 2020-0 Yes Take by [facility] one 25 - mouth. [facility] MG/5ML SUSP 19:13: of 16 Medicin e carvedilol 2020-0 Yes 12.5mg Take 12.5 [facility] (COREG) 9-30 mg by [facility] 12.5 MG 19:13: mouth 2 of tablet 16 times Medicin daily e (with meals). gabapentin 2020-0 Yes 300mg Take 300 [facility] (NEURONTIN) 9-30 mg by [facility] 300 MG 19:13: mouth 3 of capsule 16 times Medicin daily. e ASPIRIN 81 2020-0 Yes Take by [place] darnell OR 30 mouth. [facility] 19:13: of 16 Medicin e SENNA CO 2020-0 Yes by [facility] 7 [facility] 19:33: N route. of 32 Medicin e furosemide 2020-0 Yes 40mg Take 40 mg [facility] (LASIX) 40 7-28 by mouth [facility] MG tablet 19:33: daily. of 32 Medicin e hydrALAZINE 2020-0 Yes 25mg Take 25 mg [facility] (APRESOLINE 7-28 by mouth 3 [facility] ) 25 MG 19:33: times of tablet 32 daily. Medicin e Sevelamer 2020-0 Yes Take by [facility] 7-28 mouth. [facility] 800 MG TABS 19:33: of 32 Medicin e amlodipine 2020-0 Yes 10mg Take 10 mg [facility] (NORVASC) 7-28 by mouth [facility] 10 MG 19:33: daily. of tablet 32 Medicin e amoxicillin 2020-0 Yes 1{tbl} Take 1 Tab [facility] -clavulanat 7-28 by mouth 3 [facility] e 19:33: times of (AUGMENTIN) 32 daily. Medici n 500-125 MG e per tablet Spironolact 2020-0 Yes Take by [facility] one 25 7-28 mouth. [facility] MG/5ML SUSP 19:33: of 32 Medicin e carvedilol 2020-0 Yes 12.5mg Take 12.5 [facility] (COREG) 7-28 mg by [facility] 12.5 MG 19:33: mouth 2 of tablet 32 times Medicin daily e (with meals). gabapentin 2020-0 Yes 300mg Take 300 [facility] (NEURONTIN) 7-28 mg by [facility] 300 MG 19:33: mouth 3 of capsule 32 times Medicin daily. e ASPIRIN 81 2020-0 Yes Take by [place] darnell OR 7-28 mouth. [facility] 19:33: of 32 Medicin e SENNA CO 2020-0 [facility] Medicin e furosemide 2020-0 Yes 40mg Take 40 mg [facility] (LASIX) 40 6-30 by mouth [facility]le [facility] MG tablet 19:37: daily. of 20 Medicin e hydrALAZINE 2020-0 Yes 25mg Take 25 mg [facility] (APRESOLINE 6-30 by mouth 3 [facility] ) 25 MG 19:37: times of tablet 20 daily. Medicin e Sevelamer 2020-0 Yes Take by [facility] 6-30 mouth. [facility] 800 MG TABS 19:37: of 20 Medicin [...] by [facility] one 25 6-30 mouth. [facility] MG/5ML SUSP 19:37: of 20 Medicin e carvedilol 2020-0 Yes 12.5mg Take 12.5 [facility] (COREG) 6-30 mg by [facility] 12.5 MG 19:37: mouth 2 of tablet 20 times Medicin daily e (with meals). gabapentin 2020-0 Yes 300mg Take 300 [facility] (NEURONTIN) 6-30 mg by [facility] 300 MG 19:37: mouth 3 of capsule 20 times Medicin daily. e ASPIRIN 81 2020-0 Yes Take by [place] darnell OR 6-30 mouth. [facility] 19:37: of 20 Medicin e SENNA CO 2020-0 Yes by [facility] 6-30 [facility] 19:37: N route. of 20 Medicin e furosemide 2020-0 Yes 40mg Take 40 mg [facility] (LASIX) 40 6-30 by mouth [facility]le [facility] MG tablet 19:37: daily. of 20 Medicin e hydrALAZINE 2020-0 Yes 25mg Take 25 mg [facility] (APRESOLINE 6-30 by mouth 3 [facility] ) 25 MG 19:37: times of tablet 20 daily. Medicin e Sevelamer 2020-0 Yes Take by [facility] 6-30 mouth. [facility] 800 MG TABS 19:37: of 20 Medicin e amlodipine 2020-0 Yes 10mg Take 10 mg [facility] (NORVASC) 6-30 by mouth [facility] 10 MG 19:37: daily. of tablet 20 Medicin e amoxicillin 2020-0 Yes 1{tbl} Take 1 Tab [facility] -clavulanat 6-30 by mouth 3 [facility] e 19:37: times of (AUGMENTIN) 20 daily. Medici n 500-125 MG e per tablet Spironolact 2020-0 Yes Take by [facility] one 25 6-30 mouth. [facility] MG/5ML SUSP 19:37: of 20 Medicin e carvedilol 2020-0 Yes 12.5mg Take 12.5 [facility] (COREG) 6-30 mg by [facility] 12.5 MG 19:37: mouth 2 of tablet 20 times Medicin daily e (with meals). gabapentin 2020-0 Yes 300mg Take 300 [facility] (NEURONTIN) 6-30 mg by [facility] 300 MG 19:37: mouth 3 of capsule 20 times Medicin daily. e ASPIRIN 81 2019-0 Yes Take by [place] darnell OR 6-30 mouth. [facility] 19:37: of 20 Medicin e mupirocin 2020-0 Yes Apply 1-2 [place] [facility] (BACTROBAN) 6-30 grams to [facility] 2 % 00:00: affected of ointment 00 area Medicin daily. e mupirocin 2020-0 Yes Apply 1-2 [place] [facility] (BACTROBAN) 6-30 grams to [facility] 2 % 00:00: affected of ointment 00 area Medicin daily. e mupirocin 2019-0 2020- No Apply 1-2 [facility] (BACTROBAN) 6-30 10-27 grams to [facility] le[facility] 2 % 00:00: 00:00 affected of ointment 00 :00 area Medicin daily. e SENNA CO 2020-0 Yes by [facility] 6-16 [facility] 18:05: N route. of 34 Medicin e furosemide 2020-0 Yes 40mg Take 40 mg [facility] (LASIX) 40 6-16 by mouth [facility]le [facility] MG tablet 18:05: daily. of 34 Medicin e hydrALAZINE 2020-0 Yes 25mg Take 25 mg [facility] (APRESOLINE 6-16 by mouth 3 [facility] ) 25 MG 18:05: times of tablet 34 daily. Medicin e Sevelamer 2020-0 Yes Take by [facility] Carbonate 6-16 mouth. [facility] 800 MG TABS 18:05: of 34 Medicin e amlodipine 2020-0 Yes 10mg Take 10 mg [facility] (NORVASC) 6-16 by mouth [facility] 10 MG 18:05: daily. of tablet 34 Medicin e amoxicillin 2020-0 Yes 1{tbl} Take 1 Tab [facility] -clavulanat 6-16 by mouth 3 [facility] e 18:05: times of (AUGMENTIN) 34 daily. Medici n 500-125 MG e per tablet Spironolact 2020-0 Yes Take by [facility] one 25 6-16 mouth. [facility] MG/5ML SUSP 18:05: of 34 Medicin e carvedilol 2020-0 Yes 12.5mg Take 12.5 [facility] (COREG) 6-16 mg by [facility] 12.5 MG 18:05: mouth 2 of tablet 34 times Medicin daily e (with meals). gabapentin 2020-0 Yes 300mg Take 300 [facility] (NEURONTIN) 6-16 mg by [facility] 300 MG 18:05: mouth 3 of capsule 34 times Medicin daily. e ASPIRIN 81 2020-0 Yes Take by [place] darnell OR 6-16 mouth. [facility] 18:05: of 34 Medicin e mupirocin 2020-0 Yes Apply 1-2 [place] darnell (BACTROBAN) 6-04 grams to [facility] 2 % 00:00: affected of ointment 00 area Medicin daily. e mupirocin 2019-0 2020- No Apply 1-2 [facility] (BACTROBAN) 6-04 06-30 grams to [facility] lege 2 % 00:00: 00:00 affected of ointment 00 :00 area Medicin daily. e mupirocin 2020-0 2020- No Apply 1-2 [facility] (BACTROBAN) 6-04 06-30 grams to Col [facility]ge 2 % 00:00: 00:00 affected of ointment 00 :00 area Medicin daily. e SENNA CO 2020-0 Yes by [facility] 08-06 [facility] 18:33: N route. of 37 Medicin e furosemide 2020-0 Yes 40mg Take 40 mg [facility] (LASIX) 40 08-06 by mouth Colle [facility] MG tablet 18:33: daily. of 37 Medicin e hydrALAZINE 2020-0 Yes 25mg Take 25 mg [facility] (APRESOLINE 02 by mouth 3 [facility] ) 25 MG 18:33: times of tablet 37 daily. Medicin e Sevelamer 2020-0 Yes Take by [facility] Carbonate 02 mouth. [facility] 800 MG TABS 18:33: of 37 Medicin e amlodipine 2020-0 Yes 10mg Take 10 mg [facility] (NORVASC) - by mouth [facility] 10 MG 18:33: daily. of tablet 37 Medicin e amoxicillin 2020-0 Yes 1{tbl} Take 1 Tab [facility] -clavulanat 6-02 by mouth 3 [facility] e 18:33: times of (AUGMENTIN) 37 daily. Medici n 500-125 MG e per tablet Spironolact 2020-0 Yes Take by [facility] one 25 6-02 mouth. [facility] MG/5ML SUSP 18:33: of 37 Medicin e carvedilol 2020-0 Yes 12.5mg Take 12.5 [facility] (COREG) 6-02 mg by [facility] 12.5 MG 18:33: mouth 2 of tablet 37 times Medicin daily e (with meals). gabapentin 2020-0 Yes 300mg Take 300 [facility] (NEURONTIN) 6-02 mg by [facility] 300 MG 18:33: mouth 3 of capsule 37 times Medicin daily. e ASPIRIN 81 2020-0 Yes Take by [place] darnell OR 6-02 mouth. College 18:33: of 37 Medicin e SENNA CO 2020-0 Yes by [facility] 5-19 COMBINATIO [facility] 19:50: N route. of 17 Medicin e furosemide 2020-0 Yes 40mg Take 40 mg [facility] (LASIX) 40 5-19 by mouth Colle [facility] MG tablet 19:50: daily. of 17 Medicin e hydrALAZINE 2020-0 Yes 25mg Take 25 mg [facility] (APRESOLINE 5-19 by mouth 3 Co [facility]lege ) 25 MG 19:50: times of tablet 17 daily. Medicin e Sevelamer 2020-0 Yes Take by [facility] Carbonate 5-19 mouth. [facility] 800 MG TABS 19:50: of 17 Medicin e amlodipine 2020-0 Yes 10mg Take 10 mg [facility] (NORVASC) 5-19 by mouth [facility] 10 MG 19:50: daily. of tablet 17 Medicin e amoxicillin 2020-0 Yes 1{tbl} Take 1 Tab [facility] -clavulanat 5-19 by mouth 3 [facility] e 19:50: times of (AUGMENTIN) 17 daily. Medici n 500-125 MG e per tablet Spironolact 2020-0 Yes Take by [facility] one 25 5-19 mouth. College MG/5ML SUSP 19:50: of 17 Medicin e carvedilol 2020-0 Yes 12.5mg Take 12.5 [facility] (COREG) 5-19 mg by [facility] 12.5 MG 19:50: mouth 2 of tablet 17 times Medicin daily e (with meals). gabapentin Yes 300mg Take 300 [facility] (NEURONTIN) 5-19 mg by [facility] 300 MG 19:50: mouth 3 of capsule 17 times Medicin daily. e ASPIRIN 81 Yes Take by [place] [facility] [place] 5-19 mouth. [facility] 19:50: of 17 Medicin e No known No [facility] Vital Name Observation Time [...] WEIGHT 2019-11-05 93 kg 00:00:00 Systolic blood 2021-02-03 121 mm[Hg] [facility] pressure 19:23:00 of Medicine Diastolic blood 2021-02-03 69 mm[Hg] [facility] pressure 19:23:00 of Medicine Heart rate 2021-02-03 91 /min [facility] 19:23:00 of Medicine Body height 2021-02-03 185.4 cm [facility] 19:23:00 of Medicine Body weight 2021-02-03 86.637 kg [facility] 19:23:00 of Medicine BMI 2021-02-03 25.20 kg/m2 [facility] 19:23:00 of Medicine Systolic blood 2021-01-20 165 mm[Hg] [facility] pressure 17:05:00 of Medicine Diastolic blood 2021-01-20 92 mm[Hg] [facility] pressure 17:05:00 of Medicine Heart rate 2021-01-20 75 /min [facility] 17:05:00 of Medicine Body height 2021-01-20 185.4 cm [facility] 17:05:00 of Medicine Body weight 2021-01-20 86.637 kg [facility] 17:05:00 of Medicine BMI 2021-01-20 25.20 kg/m2 [facility] 17:05:00 of Medicine Systolic blood 2020-12-23 161 mm[Hg] [facility] pressure 20:28:00 of Medicine Diastolic blood 2020-12-23 92 mm[Hg] [facility] pressure 20:28:00 of Medicine Heart rate 2020-12-23 89 /min [facility] 20:28:00 of Medicine Body height 2020-12-23 185.4 cm [facility] 20:28:00 of Medicine Body weight 2020-12-23 86.637 kg [facility] 20:28:00 of Medicine BMI 2020-12-23 25.20 kg/m2 [facility] 20:28:00 of Medicine Systolic blood 2020-11-25 147 mm[Hg] [facility] pressure 19:32:00 of Medicine Diastolic blood 2020-11-25 73 mm[Hg] [facility] pressure 19:32:00 of Medicine Heart rate 2020-11-25 61 /min [facility] 19:32:00 of Medicine Respiratory rate 2020-11-25 14 /min [facility] ege 19:32:00 of Medicine Body height 2020-11-25 185.4 cm [facility] 19:32:00 of Medicine Body weight 2020-11-25 87 kg [facility] 19:32:00 of Medicine BMI 2020-11-25 25.30 kg/m2 [facility] 19:32:00 of Medicine Systolic blood 2020-10-28 154 mm[Hg] [facility] pressure 21:32:00 of Medicine Diastolic blood 2020-10-28 77 mm[Hg] [facility] ge pressure 21:32:00 of Medicine Heart rate 2020-10-28 61 /min [facility] 21:32:00 of Medicine Body height 2020-10-28 182.9 cm [facility] 21:32:00 of Medicine Body weight 2020-10-28 86.637 kg [facility] 21:32:00 of Medicine BMI 2020-10-28 25.90 kg/m2 [facility] 21:32:00 of Medicine Systolic blood 2020-10-14 151 mm[Hg] [facility] pressure 21:20:00 of Medicine Diastolic blood 2020-10-14 77 mm[Hg] [facility] pressure 21:20:00 of Medicine Heart rate 2020-10-14 60 /min [facility] 21:20:00 of Medicine Body height 2020-10-14 182.9 cm [facility] 21:20:00 of Medicine Body weight 2020-10-14 86.637 kg [facility] 21:20:00 of Medicine BMI 2020-10-14 25.90 kg/m2 [facility] 21:20:00 of Medicine WEIGHT 2020-10-03 75.6 kg [...] kg 18:23:00 Systolic blood 2020-08-19 141 mm[Hg] [facility] pressure 20:25:00 of Medicine Diastolic blood 2020-08-19 71 mm[Hg] [facility] pressure 20:25:00 of Medicine Heart rate 2020-08-19 62 /min [facility] 20:25:00 of Medicine Body height 2020-08-19 182.9 cm [facility] 20:25:00 of Medicine Body weight 2020-08-19 84.823 kg [facility] 20:25:00 of Medicine BMI 2020-08-19 25.36 kg/m2 [facility] 20:25:00 of Medicine Systolic blood 2020-08-05 184 mm[Hg] [facility] pressure 18:22:00 of Medicine Diastolic blood 2020-08-05 90 mm[Hg] [facility] pressure 18:22:00 of Medicine Heart rate 2020-08-05 63 /min [facility] 18:22:00 of Medicine Body height 2020-08-05 182.9 cm [facility] 18:22:00 of Medicine Body weight 2020-08-05 84.823 kg [facility] 18:22:00 of Medicine BMI 2020-08-05 25.36 kg/m2 [facility] 18:22:00 of Medicine Systolic blood 2020-07-22 207 mm[Hg] [facility] pressure 18:25:00 of Medicine Diastolic blood 2020-07-22 97 mm[Hg] [facility] pressure 18:25:00 of Medicine Heart rate 2020-07-22 61 /min [facility] 18:25:00 of Medicine Body height 2020-07-22 182.9 cm [facility] 18:25:00 of Medicine Body weight 2020-07-22 84.823 kg [facility] 18:25:00 of Medicine BMI 2020-07-22 25.36 kg/m2 [facility] 18:25:00 of Medicine Systolic blood 2020-06-24 103 mm[Hg] [facility] pressure 20:43:00 of Medicine Diastolic blood 2020-06-24 64 mm[Hg] [facility] pressure 20:43:00 of Medicine Heart rate 2020-06-24 95 /min [facility] 20:43:00 of Medicine Body height 2020-06-24 182.9 cm [facility] 20:43:00 of Medicine Body weight 2020-06-24 85 kg [facility] 20:43:00 of Medicine BMI 2020-06-24 25.41 kg/m2 [facility] 20:43:00 of Medicine WEIGHT 2020-06-13 81.2 kg [...] kg 14:51:00 Systolic blood 2020-05-20 144 mm[Hg] [facility] pressure 21:14:00 of Medicine Diastolic blood 2020-05-20 81 mm[Hg] [facility] pressure 21:14:00 of Medicine Heart rate 2020-05-20 61 /min [facility] 21:14:00 of Medicine Body height 2020-05-20 182.9 cm [facility] 21:14:00 of Medicine Body weight 2020-05-20 96.616 kg [facility] 21:14:00 of Medicine BMI 2020-05-20 28.89 kg/m2 [facility] 21:14:00 of Medicine Systolic blood 2020-05-20 144 mm[Hg] [facility] pressure 21:14:00 of Medicine Diastolic blood 2020-05-20 81 mm[Hg] [facility] pressure 21:14:00 of Medicine Heart rate 2020-05-20 61 /min [facility] 21:14:00 of Medicine Body height 2020-05-20 182.9 cm [facility] 21:14:00 of Medicine Body weight 2020-05-20 96.616 kg [facility] 21:14:00 of Medicine BMI 2020-05-20 28.89 kg/m2 [facility] 21:14:00 of Medicine Systolic blood 2020-05-13 105 mm[Hg] [facility] pressure 22:27:00 of Medicine Diastolic blood 2020-05-13 65 mm[Hg] [facility] pressure 22:27:00 of Medicine Heart rate 2020-05-13 58 /min [facility] 22:27:00 of Medicine Body height 2020-05-13 182.9 cm [facility] 22:27:00 of Medicine Body weight 2020-05-13 96.616 kg [facility] 22:27:00 of Medicine BMI 2020-05-13 28.89 kg/m2 [facility] 22:27:00 of Medicine Systolic blood 2020-05-13 105 mm[Hg] [facility] pressure 22:27:00 of Medicine Diastolic blood 2020-05-13 65 mm[Hg] [facility] pressure 22:27:00 of Medicine Heart rate 2020-05-13 58 /min [facility] 22:27:00 of Medicine Body height 2020-05-13 182.9 cm [facility] 22:27:00 of Medicine Body weight 2020-05-13 96.616 kg [facility] 22:27:00 of Medicine BMI 2020-05-13 28.89 kg/m2 [facility] 22:27:00 of Medicine Systolic blood 2020-04-29 170 mm[Hg] [facility] pressure 21:36:00 of Medicine Diastolic blood 2020-04-29 94 mm[Hg] [facility] 21:36:00 of Medicine Heart rate 2020-04-29 62 /min [facility] 21:36:00 of Medicine Body height 2020-04-29 182.9 cm [facility] 21:36:00 of Medicine Body weight 2020-04-29 96.616 kg [facility] 21:36:00 of Medicine BMI 2020-04-29 28.89 kg/m2 [facility] 21:36:00 of Medicine Systolic blood 2020-04-29 170 mm[Hg] [facility] pressure 21:36:00 of Medicine Diastolic blood 2020-04-29 94 mm[Hg] [facility] 21:36:00 of Medicine Heart rate 2020-04-29 62 /min [facility] 21:36:00 of Medicine Body height 2020-04-29 182.9 cm [facility] 21:36:00 of Medicine Body weight 2020-04-29 96.616 kg [facility] 21:36:00 of Medicine BMI 2020-04-29 28.89 kg/m2 [facility] 21:36:00 of Medicine Systolic blood 2020-04-08 163 mm[Hg] [facility] pressure 21:53:00 of Medicine Diastolic blood 2020-04-08 76 mm[Hg] [facility] pressure 21:53:00 of Medicine Heart rate 2020-04-08 65 /min [facility] 21:53:00 of Medicine Body height 2020-04-08 182.9 cm [facility] 21:53:00 of Medicine Body weight 2020-04-08 96.616 kg unable to stand [facility] 21:53:00 of Medicine BMI 2020-04-08 28.89 kg/m2 [facility] 21:53:00 of Medicine Systolic blood 2020-04-08 163 mm[Hg] [facility] pressure 21:53:00 of Medicine Diastolic blood 2020-04-08 76 mm[Hg] [facility] ge pressure 21:53:00 of Medicine Heart rate 2020-04-08 65 /min [facility] 21:53:00 of Medicine Body height 2020-04-08 182.9 cm [facility] 21:53:00 of Medicine Body weight 2020-04-08 96.616 kg unable to stand [facility] 21:53:00 of Medicine BMI 2020-04-08 28.89 kg/m2 [facility] 21:53:00 of Medicine WEIGHT 2020-03-26 79.3 kg [...] kg 20:50:00 Systolic blood 2020-03-11 144 mm[Hg] [facility] pressure 21:44:00 of Medicine Diastolic blood 2020-03-11 86 mm[Hg] [facility] pressure 21:44:00 of Medicine Heart rate 2020-03-11 74 /min [facility] 21:44:00 of Medicine Body height 2020-03-11 182.9 cm [facility] 21:44:00 of Medicine Body weight 2020-03-11 96.616 kg unable to stand [facility] 21:44:00 of Medicine BMI 2020-03-11 28.89 kg/m2 [facility] 21:44:00 of Medicine Systolic blood 2020-03-11 144 mm[Hg] [facility] pressure 21:44:00 of Medicine Diastolic blood 2020-03-11 86 mm[Hg] [facility] pressure 21:44:00 of Medicine Heart rate 2020-03-11 74 /min [facility] 21:44:00 of Medicine Body height 2020-03-11 182.9 cm [facility] 21:44:00 of Medicine Body weight 2020-03-11 96.616 kg unable to stand [facility] 21:44:00 of Medicine BMI 2020-03-11 28.89 kg/m2 [facility] 21:44:00 of Medicine WEIGHT 2020-01-21 91.4 kg [...] kg 16:05:00 Systolic blood 2020-01-01 154 mm[Hg] [facility] pressure 21:34:00 of Medicine Diastolic blood 2020-01-01 79 mm[Hg] [facility] pressure 21:34:00 of Medicine Heart rate 2020-01-01 67 /min [facility] 21:34:00 of Medicine Body weight 2020-01-01 96.616 kg [facility] 21:34:00 of Medicine BMI 2020-01-01 32.39 kg/m2 [facility] 21:34:00 of Medicine Systolic blood 2020-01-01 154 mm[Hg] [facility] pressure 21:34:00 of Medicine Diastolic blood 2020-01-01 79 mm[Hg] [facility] pressure 21:34:00 of Medicine Heart rate 2020-01-01 67 /min [facility] 21:34:00 of Medicine Body weight 2020-01-01 96.616 kg [facility] 21:34:00 of Medicine BMI 2020-01-01 32.39 kg/m2 [facility] 21:34:00 of Medicine Systolic blood 2020-01-01 154 mm[Hg] [facility] pressure 20:24:00 of Medicine Diastolic blood 2020-01-01 79 mm[Hg] [facility] [facility] 20:24:00 of Medicine Heart rate 2020-01-01 67 /min [facility] 20:24:00 of Medicine Body height 2020-01-01 172.7 cm [facility] 20:24:00 of Medicine Body weight 2020-01-01 97 kg [facility] 20:24:00 of Medicine BMI 2020-01-01 32.52 kg/m2 [facility] 20:24:00 of Medicine Systolic blood 2020-01-01 154 mm[Hg] [employer] pressure 20:24:00 of Medicine Diastolic blood 2020-01-01 79 mm[Hg] [employer] [facility] 20:24:00 of Medicine Heart rate 2020-01-01 67 /min [facility] 20:24:00 of Medicine Body height 2020-01-01 172.7 cm [facility] 20:24:00 of Medicine Body weight 2020-01-01 97 kg [facility] 20:24:00 of Medicine BMI 2020-01-01 32.52 kg/m2 [facility] 20:24:00 of Medicine WEIGHT 2019-12-21 98 kg 15:30:00 WEIGHT 2019-12-21 99.5 kg 12:30:00 WEIGHT 2019-12-19 99.5 kg 13:30:00 WEIGHT 2019-12-17 99.5 kg 11:26:00 WEIGHT 2019-12-14 101.4 kg 16:45:00 HEIGHT 2019-12-05 185.4 cm 20:42:00 HEIGHT 2019-12-05 185.4 cm 00:00:00 WEIGHT 2019-12-05 101.4 kg 00:00:00 Systolic blood 2019-12-05 127 mm[Hg] [employer] pressure 19:12:00 of Medicine Diastolic blood 2019-12-05 77 mm[Hg] [employer] [facility] 19:12:00 of Medicine Heart rate 2019-12-05 67 /min [facility] 19:12:00 of Medicine Body height 2019-12-05 172.7 cm [facility] 19:12:00 of Medicine Body weight 2019-12-05 104.327 kg [facility] 19:12:00 of Medicine BMI 2019-12-05 34.97 kg/m2 [facility] 19:12:00 of Medicine Systolic blood 2019-12-05 127 mm[Hg] [employer] pressure 19:12:00 of Medicine Diastolic blood 2019-12-05 77 mm[Hg] [employer] [facility] 19:12:00 of Medicine Heart rate 2019-12-05 67 /min [facility] 19:12:00 of Medicine Body height 2019-12-05 172.7 cm [facility] 19:12:00 of Medicine Body weight 2019-12-05 104.327 kg [facility] 19:12:00 of Medicine BMI 2019-12-05 34.97 kg/m2 [facility] 19:12:00 of Medicine HEIGHT 2019-11-05 185.4 cm 00:00:00 WEIGHT 2019-11-05 93 kg 00:00:00 HEIGHT 2019-10-10 185.4 cm 00:00:00 WEIGHT 2019-10-10 110 kg 00:00:00 Systolic blood 2019-10-02 202 mm[Hg] [employer] pressure 19:32:00 of Medicine Diastolic blood 2019-10-02 110 mm[Hg] [employer] [facility] 19:32:00 of Medicine Heart rate 2019-10-02 67 /min [facility] 19:32:00 of Medicine Body height 2019-10-02 172.7 cm [facility] 19:32:00 of Medicine Body weight 2019-10-02 104.327 kg [facility] 19:32:00 of Medicine BMI 2019-10-02 34.97 kg/m2 [facility] 19:32:00 of Medicine Systolic blood 2019-10-02 202 mm[Hg] [employer] [facility] 19:32:00 of Medicine Diastolic blood 2019-10-02 110 mm[Hg] [employer] [facility] 19:32:00 of Medicine Heart rate 2019-10-02 67 /min [facility] 19:32:00 of Medicine Body height 2019-10-02 172.7 cm [facility] 19:32:00 of Medicine Body weight 2019-10-02 104.327 kg [facility] 19:32:00 of Medicine BMI 2019-10-02 34.97 kg/m2 [facility] 19:32:00 of Medicine Systolic blood 2019-09-04 165 mm[Hg] [employer] [facility] 19:36:00 of Medicine Diastolic blood 2019-09-04 91 mm[Hg] [employer] [facility] 19:36:00 of Medicine Heart rate 2019-09-04 70 /min [facility] 19:36:00 of Medicine Body height 2019-09-04 172.7 cm [facility] 19:36:00 of Medicine Body weight 2019-09-04 104.327 kg [facility] 19:36:00 of Medicine BMI 2019-09-04 34.97 kg/m2 [facility] 19:36:00 of Medicine Systolic blood 2019-09-04 165 mm[Hg] [employer] pressure 19:36:00 of Medicine Diastolic blood 2019-09-04 91 mm[Hg] [employer] [facility] 19:36:00 of Medicine Heart rate 2019-09-04 70 /min [facility] 19:36:00 of Medicine Body height 2019-09-04 172.7 cm [facility] 19:36:00 of Medicine Body weight 2019-09-04 104.327 kg [facility] 19:36:00 of Medicine BMI 2019-09-04 34.97 kg/m2 [facility] 19:36:00 of Medicine Systolic blood 2019-09-04 165 mm[Hg] [employer] [facility] 19:29:00 of Medicine Diastolic blood 2019-09-04 91 mm[Hg] [employer] [facility] 19:29:00 of Medicine Heart rate 2019-09-04 70 /min [facility] 19:29:00 of Medicine Body height 2019-09-04 172.7 cm [facility] 19:29:00 of Medicine Body weight 2019-09-04 104.327 kg [facility] 19:29:00 of Medicine BMI 2019-09-04 34.97 kg/m2 [facility] 19:29:00 of Medicine Systolic blood 2019-09-04 165 mm[Hg] [employer] [facility] 19:29:00 of Medicine Diastolic blood 2019-09-04 91 mm[Hg] [employer] [facility] 19:29:00 of Medicine Heart rate 2019-09-04 70 /min [facility] 19:29:00 of Medicine Body height 2019-09-04 172.7 cm [facility] 19:29:00 of Medicine Body weight 2019-09-04 104.327 kg [facility] 19:29:00 of Medicine BMI 2019-09-04 34.97 kg/m2 [facility] 19:29:00 of Medicine Systolic blood 2019-08-21 137 mm[Hg] [employer] pressure 18:04:00 of Medicine Diastolic blood 2019-08-21 77 mm[Hg] [employer] [facility] 18:04:00 of Medicine Heart rate 2019-08-21 72 /min [facility] 18:04:00 of Medicine Body height 2019-08-21 172.7 cm [facility] 18:04:00 of Medicine Body weight 2019-08-21 104.327 kg [facility] 18:04:00 of Medicine BMI 2019-08-21 34.97 kg/m2 [facility] 18:04:00 of Medicine Systolic blood 2019-08-21 137 mm[Hg] [employer] [facility] 18:04:00 of Medicine Diastolic blood 2019-08-21 77 mm[Hg] [employer] [facility] 18:04:00 of Medicine Heart rate 2019-08-21 72 /min [facility] 18:04:00 of Medicine Body height 2019-08-21 172.7 cm [facility] 18:04:00 of Medicine Body weight 2019-08-21 104.327 kg [facility] 18:04:00 of Medicine BMI 2019-08-21 34.97 kg/m2 [facility] 18:04:00 of Medicine Systolic blood 2019-08-07 148 mm[Hg] [employer] [facility] 18:34:00 of Medicine Diastolic blood 2019-08-07 77 mm[Hg] [employer] [facility] 18:34:00 of Medicine Heart rate 2019-08-07 65 /min [facility] 18:34:00 of Medicine Body height 2019-08-07 172.7 cm [facility] 18:34:00 of Medicine Body weight 2019-08-07 104.327 kg [facility] 18:34:00 of Medicine BMI 2019-08-07 34.97 kg/m2 [facility] 18:34:00 of Medicine Systolic blood 2019-08-07 148 mm[Hg] [employer] [facility] 18:34:00 of Medicine Diastolic blood 2019-08-07 77 mm[Hg] [employer] [facility] 18:34:00 of Medicine Heart rate 2019-08-07 65 /min [facility] 18:34:00 of Medicine Body height 2019-08-07 172.7 cm [facility] 18:34:00 of Medicine Body weight 2019-08-07 104.327 kg [facility] 18:34:00 of Medicine BMI 2019-08-07 34.97 kg/m2 [facility] 18:34:00 of Medicine Systolic blood 2019-07-24 146 mm[Hg] [employer] [facility] 18:50:00 of Medicine Diastolic blood 2019-07-24 80 mm[Hg] [employer] [facility] 18:50:00 of Medicine Heart rate 2019-07-24 68 /min [facility] 18:50:00 of Medicine Body height 2019-07-24 172.7 cm [facility] 18:50:00 of Medicine Body weight 2019-07-24 104.327 kg [facility] 18:50:00 of Medicine BMI 2019-07-24 34.97 kg/m2 [facility] 18:50:00 of Medicine Systolic blood 2019-07-24 146 mm[Hg] [employer] [facility] 18:50:00 of Medicine Diastolic blood 2019-07-24 80 mm[Hg] [employer] [facility] 18:50:00 of Medicine Heart rate 2019-07-24 68 /min [facility] 18:50:00 of Medicine Body height 2019-07-24 172.7 cm [facility] 18:50:00 of Medicine Body weight 2019-07-24 104.327 kg [facility] 18:50:00 of Medicine BMI 2019-07-24 34.97 kg/m2 [facility] 18:50:00 of Medicine Systolic blood 2019-07-17 130 mm[Hg] [employer] [facility] 16:32:00 of Medicine Diastolic blood 2019-07-17 51 mm[Hg] [employer] [facility] 16:32:00 of Medicine Heart rate 2019-07-17 68 /min [facility] 16:32:00 of Medicine Body height 2019-07-17 172.7 cm [facility] 16:32:00 of Medicine Body weight 2019-07-17 104.327 kg [facility] 16:32:00 of Medicine BMI 2019-07-17 34.97 kg/m2 [facility] 16:32:00 of Medicine Systolic blood 2019-07-17 130 mm[Hg] [employer] [facility] 16:32:00 of Medicine Diastolic blood 2019-07-17 51 mm[Hg] [employer] [facility] 16:32:00 of Medicine Heart rate 2019-07-17 68 /min [facility] 16:32:00 of Medicine Body height 2019-07-17 172.7 cm [facility] 16:32:00 of Medicine Body weight 2019-07-17 104.327 kg [facility] 16:32:00 of Medicine BMI 2019-07-17 34.97 kg/m2 [facility] 16:32:00 of Medicine Systolic blood 2019-07-10 126 mm[Hg] [employer] [facility] 20:16:00 of Medicine Diastolic blood 2019-07-10 72 mm[Hg] [employer] [facility] 20:16:00 of Medicine Heart rate 2019-07-10 86 /min [facility] 20:16:00 of Medicine Body height 2019-07-10 172.7 cm [facility] 20:16:00 of Medicine Body weight 2019-07-10 104.327 kg [facility] 20:16:00 of Medicine BMI 2019-07-10 34.97 kg/m2 [facility] 20:16:00 of Medicine Systolic blood 2019-07-10 126 mm[facility] Diastolic blood 2019-07-10 72 mm[Hg] [facility] pressure 20:16:00 of Medicine Heart rate 2019-07-10 86 /min [facility] 20:16:00 of Medicine Body height 2019-07-10 172.7 cm [facility] 20:16:00 of Medicine Body weight 2019-07-10 104.327 kg [facility] 20:16:00 of Medicine BMI 2019-07-10 34.97 kg/m2 [facility] 20:16:00 of Medicine Procedures Procedure Date / Time Performed Performing Clinician [facility] rohit [id number] 2020-04-12 00:00:00 ENCPL 95309B7 2020-04-12 00:00:00 ENCPL 78108B0 2020-04-12 00:00:00 ENCPL 59852R8 2020-04-12 00:00:00 ENCPL 86374V7 2020-04-12 00:00:00 ENCPL 60309P2 2020-04-12 00:00:00 ENCPL 21255A3 2020-04-12 00:00:00 ENCPL 75710K0 2020-04-12 00:00:00 ENCPL 9O1H59O 2020-03-28 00:00:00 ENCPL 8S1U46W 2020-03-28 00:00:00 ENCPL 3O1N33S 2020-03-28 00:00:00 ENCPL 6F6W72M 2020-03-28 00:00:00 ENCPL 4Q6R83D 2020-03-28 00:00:00 ENCPL 4H9Y33X 2020-03-28 00:00:00 ENCPL 1F9M38C 2020-03-28 00:00:00 ENCPL 3H4E19D 2020-03-28 00:00:00 ENCPL 9D8N35T 2020-03-28 00:00:00 ENCPL 3L4O80Q 2020-03-28 00:00:00 ENCPL 1A6O73R 2020-03-28 00:00:00 ENCPL 9Y0D03A 2020-03-28 00:00:00 ENCPL 0H9N33D 2020-03-28 00:00:00 ENCPL 2U8I72W 2020-03-28 00:00:00 ENCPL 8C1U42Q 2020-03-28 00:00:00 ENCPL 5Q9L50P 2020-03-28 00:00:00 ENCPL 6T2M36B 2020-03-28 00:00:00 ENCPL 2R4Q75M 2020-03-28 00:00:00 ENCPL 9C7O40I 2020-03-28 00:00:00 ENCPL 3G0M69Z 2020-03-28 00:00:00 ENCPL 8S6V37N 2020-03-28 00:00:00 ENCPL 1G3W97T 2020-03-28 00:00:00 ENCPL 9L3I15M 2020-03-28 00:00:00 ENCPL 9P0I59O 2020-03-28 00:00:00 ENCPL 2U4Q34R 2020-03-28 00:00:00 ENCPL 3B2G76T 2020-03-28 00:00:00 ENCPL 4A1S21W 2019-06-29 00:00:00 ENCPL 9W5P39E 2019-06-29 00:00:00 ENCPL 0J9E56N 2019-06-29 00:00:00 ENCPL 3U8N76I 2019-06-29 00:00:00 ENCPL 4R2E97Z 2019-06-29 00:00:00 ENCPL 9V8L67O 2019-06-29 00:00:00 ENCPL Plan of Care Planned Activity Planned Date Details Comments Source Future Scheduled 2021-02-10 [place] DEBRIDEMENT, SKIN, Ordered: [facility] Test 15:30:13 SUB-Q TISSUE,=<20 SQ CM 02/10/2021 of M edicine [code = 06856] Future Scheduled 2021-02-10 Screening for malignant [facility] Test 15:18:14 neoplasm of colon of Medicin e (procedure) [code = 098750413] Future Scheduled 2021-02-10 Pneumococcal Combined Ba [facility] Test 15:18:14 (1 of 2 - PPSV23) [code of M edicine = Pneumococcal Combined (1 of 2 - PPSV23)] Future Scheduled 2021-02-10 COVID-19 Vaccine (1) [facility] Test 15:18:14 [code = COVID-19 of Medicine Vaccine (1)] Future Scheduled 2021-02-10 TETANUS SHOT (ADULT) [facility] Test 15:18:14 [code = TETANUS SHOT of Medi cine (ADULT)] Future Scheduled 2021-02-10 Diabetic foot [employer] Test 15:18:14 examination of Medicine (regime/therapy) [code = 805967469] Future Scheduled 2021-02-10 ANNUAL DIABETIC [employer] Test 15:18:14 RETINOPATHY SCREENING of Med icine [code = ANNUAL DIABETIC RETINOPATHY SCREENING] Future Scheduled 2021-02-[address] [facility] Test 15:18:14 (procedure) [code = of Medic ine 885422011] Future Scheduled 2021-02-10 Human immunodeficiency B [facility] Test 15:18:14 virus screening of Medicine (procedure) [code = 146334903] Future Scheduled 2021-02-10 ZOSTER VACCINE (1 of 2) [facility] Test 15:18:14 [code = ZOSTER VACCINE of Oh dicine (1 of 2)] Future Scheduled 2021-02-10 MEDICARE AWV (Initial) B [facility] Test 15:18:14 [code = MEDICARE AWV of Medi cine (Initial)] Future Scheduled 2021-02-10 FLU VACCINE > 6 MONTHS B [facility] Test 15:18:14 [code = FLU VACCINE > 6 of M edicine MONTHS] Future Scheduled 2021-02-10 BMI FOLLOW UP PLAN [facility] Test 15:18:14 [code = BMI FOLLOW UP of Med icine PLAN] Future Scheduled 2021-01-20 US ARTERIAL LEGS 1 Occurrences [facility] Test 11:28:17 BILATERAL [code = starting of Medicin e 67801-1] 01/20/2021 until 01/20/2022 Future Scheduled 2021-01-20 Screening for malignant [facility] Test 11:24:40 neoplasm of colon of Medicin e (procedure) [code = 420535314] Future Scheduled 2021-01-20 Pneumococcal Combined Ba [facility] Test 11:24:40 (1 of 2 - PPSV23) [code of M edicine = Pneumococcal Combined (1 of 2 - PPSV23)] Future Scheduled 2021-01-20 COVID-19 Vaccine (1) [facility] Test 11:24:40 [code = COVID-19 of Medicine Vaccine (1)] Future Scheduled 2021-01-20 TETANUS SHOT (ADULT) [facility] Test 11:24:40 [code = TETANUS SHOT of Medi cine (ADULT)] Future Scheduled 2021-01-20 Diabetic foot [employer] Test 11:24:40 examination of Medicine (regime/therapy) [code = 476388177] Future Scheduled 2021-01-20 ANNUAL DIABETIC [employer] [facility] [employer] Test 11:24:40 RETINOPATHY SCREENING of Med icine [code = ANNUAL DIABETIC RETINOPATHY SCREENING] Future Scheduled 2021-01-[address] [facility] Test 11:24:40 (procedure) [code = of Medic ine 223728185] Future Scheduled 2021-01-20 Human immunodeficiency B [facility] Test 11:24:40 virus screening of Medicine (procedure) [code = 806640592] Future Scheduled 2021-01-20 ZOSTER VACCINE (1 of 2) [facility] Test 11:24:40 [code = ZOSTER VACCINE of Oh dicine (1 of 2)] Future Scheduled 2021-01-20 MEDICARE AWV (Initial) [facility] Test 11:24:40 [code = MEDICARE AWV of Medi cine (Initial)] Future Scheduled 2021-01-20 FLU VACCINE > 6 MONTHS B [facility] Test 11:24:40 [code = FLU VACCINE > 6 of M edicine MONTHS] Future Scheduled 2021-01-20 BMI FOLLOW UP PLAN [facility] Test 11:24:40 [code = BMI FOLLOW UP of Med icine PLAN] Future Scheduled 2021-01-04 OK DEBRIDEMENT, SKIN, Ordered: [facility] Test 21:20:15 SUB-Q TISSUE,=<20 SQ CM 01/04/2021 of M edicine [code = 69125] Future Scheduled 2021-01-04 Screening for malignant [facility] Test 21:13:01 neoplasm of colon of Medicin e (procedure) [code = 641075524] Future Scheduled 2021-01-04 COVID-19 Vaccine (1) [facility] Test 21:13:01 [code = COVID-19 of Medicine Vaccine (1)] Future Scheduled 2021-01-04 TETANUS SHOT (ADULT) [facility] Test 21:13:01 [code = TETANUS SHOT of Medi cine (ADULT)] Future Scheduled 2021-01-04 Diabetic foot [employer] Test 21:13:01 examination of Medicine (regime/therapy) [code = 926760462] Future Scheduled 2021-01-04 ANNUAL DIABETIC [employer] [facility] [employer] Test 21:13:01 RETINOPATHY SCREENING of Med icine [code = ANNUAL DIABETIC RETINOPATHY SCREENING] Future Scheduled 2021-01-04 Hepatitis C screening Ba [facility] Test 21:13:01 (procedure) [code = of Medic ine 135770681] Future Scheduled 2021-01-04 Human immunodeficiency B [facility] Test 21:13:01 virus screening of Medicine (procedure) [code = 865174924] Future Scheduled 2021-01-04 ZOSTER VACCINE (1 of 2) [facility] Test 21:13:01 [code = ZOSTER VACCINE of Oh dicine (1 of 2)] Future Scheduled 2021-01-04 MEDICARE AWV (Initial) B [facility] Test 21:13:01 [code = MEDICARE AWV of [employer] (Initial)] Future Scheduled 2021-01-04 FLU VACCINE > 6 MONTHS B [facility] Test 21:13:01 [code = FLU VACCINE > 6 of edicine MONTHS] Future Scheduled 2021-01-04 BMI FOLLOW UP PLAN [facility] Test 21:13:01 [code = BMI FOLLOW UP of Med icine PLAN] Future Scheduled 2020-12-03 OK DEBRIDEMENT OPEN Ordered: [facility] Test 09:58:36 WOUND 20 SQ CM< [code = 12/03/2020 of edicine 98897] Future Scheduled 2020-12-03 OK DEBRIDEMENT OPEN Ordered: [place] [employer] Test 09:58:36 WOUND 20 SQ CM< [code = 12/03/2020 of edicine 81419] Future Scheduled 2020-12-03 Screening for malignant [facility] Test 09:53:42 neoplasm of colon of Medicin e (procedure) [code = 480828135] Future Scheduled 2020-12-03 COVID-19 Vaccine (1) [facility] Test 09:53:42 [code = COVID-19 of Medicine Vaccine (1)] Future Scheduled 2020-12-03 TETANUS SHOT (ADULT) [place] [employer] Test 09:53:42 [code = TETANUS SHOT of Medi cine (ADULT)] Future Scheduled 2020-12-03 Diabetic foot [employer] Test 09:53:42 examination of Medicine (regime/therapy) [code = 966280528] Future Scheduled 2020-12-03 ANNUAL DIABETIC [employer] [facility] [employer] Test 09:53:42 RETINOPATHY SCREENING of Med icine [code = ANNUAL DIABETIC RETINOPATHY SCREENING] Future Scheduled 2020-12-03 Hepatitis C screening Ba [facility] Test 09:53:42 (procedure) [code = of Medic ine 568643849] Future Scheduled 2020-12-03 Human immunodeficiency B [facility] Test 09:53:42 virus screening of Medicine (procedure) [code = 624307359] Future Scheduled 2020-12-03 ZOSTER VACCINE (1 of 2) [employer] Test 09:53:42 [code = ZOSTER VACCINE of Me dicine (1 of 2)] Future Scheduled 2020-12-03 MEDICARE AWV (Initial) [facility] Test 09:53:42 [code = MEDICARE AWV of Medi cine (Initial)] Future Scheduled 2020-12-03 FLU VACCINE > 6 MONTHS [facility] [employer] Test 09:53:42 [code = FLU VACCINE > 6 of M edicine MONTHS] Future Scheduled 2020-12-03 BMI FOLLOW UP PLAN [facility] Test 09:53:42 [code = BMI FOLLOW UP of Med icine PLAN] Future Scheduled 2020-12-03 Screening for malignant [facility] Test 09:53:42 neoplasm of colon of Medicin e (procedure) [code = 619420465] Future Scheduled 2020-12-03 COVID-19 Vaccine (1) [facility] Test 09:53:42 [code = COVID-19 of Medicine Vaccine (1)] Future Scheduled 2020-12-03 TETANUS SHOT (ADULT) [place] [facility] [employer] Test 09:53:42 [code = TETANUS SHOT of Medi cine (ADULT)] Future Scheduled 2020-12-03 Diabetic foot [employer] Test 09:53:42 examination of Medicine (regime/therapy) [code = 149348471] Future Scheduled 2020-12-03 ANNUAL DIABETIC [employer] [facility] [employer] Test 09:53:42 RETINOPATHY SCREENING of Med icine [code = ANNUAL DIABETIC RETINOPATHY SCREENING] Future Scheduled 2020-12-03 Hepatitis C screening [employer] Test 09:53:42 (procedure) [code = of Medic ine 776072839] Future Scheduled 2020-12-03 Human immunodeficiency [facility] [employer] Test 09:53:42 virus screening of Medicine (procedure) [code = 504019833] Future Scheduled 2020-12-03 ZOSTER VACCINE (1 of 2) [employer] Test 09:53:42 [code = ZOSTER VACCINE of Me dicine (1 of 2)] Future Scheduled 2020-12-03 MEDICARE AWV (Initial) [facility] [employer] Test 09:53:42 [code = MEDICARE AWV of Medi cine (Initial)] Future Scheduled 2020-12-03 FLU VACCINE > 6 MONTHS [facility] [employer] Test 09:53:42 [code = FLU VACCINE > 6 of edicine MONTHS] Future Scheduled 2020-12-03 BMI FOLLOW UP PLAN [facility] Test 09:53:42 [code = BMI FOLLOW UP of Med icine PLAN] Future Scheduled 2020-11-25 WOUND CARE INSTRUCTIONS Ordered: [facility] Test 16:09:42 [code = 72648] 11/25/2020 of Medicine Future Scheduled 2020-11-25 WOUND CARE INSTRUCTIONS Ordered: [facility] Test 16:09:42 [code = 24802] 11/25/2020 of Medicine Future Scheduled 2020-11-03 OK DRAINAGE OF Ordered: [employer] Test 12:26:16 HEMATOMA/FLUID [code = 11/03/2020 of Me dicine 72634] Future Scheduled 2020-11-03 OK DEBRIDEMENT OPEN Ordered: [facility] Test 12:26:16 WOUND 20 SQ CM< [code = 11/03/2020 of M edicine 05195] Future Scheduled 2020-11-03 Hepatitis C screening [employer] Test 09:36:18 (procedure) [code = of Medic ine 673432910] Future Scheduled 2020-11-03 Human immunodeficiency [facility] [employer] Test 09:36:18 virus screening of Medicine (procedure) [code = 594553319] Future Scheduled 2020-11-03 ZOSTER VACCINE (1 of 2) [employer] Test 09:36:18 [code = ZOSTER VACCINE of Me dicine (1 of 2)] Future Scheduled 2020-11-03 MEDICARE AWV (Initial) [facility] [facility] [employer] Test 09:36:18 [code = MEDICARE AWV of Medi cine (Initial)] Future Scheduled 2020-11-03 FLU VACCINE > 6 MONTHS [facility] [employer] Test 09:36:18 [code = FLU VACCINE > 6 of M edicine MONTHS] Future Scheduled 2020-11-03 BMI FOLLOW UP PLAN [facility] Test 09:36:18 [code = BMI FOLLOW UP of Med icine PLAN] Future Scheduled 2020-11-03 Screening for malignant [facility] Test 09:36:18 neoplasm of colon of Medicin e (procedure) [code = 304475792] Future Scheduled 2020-11-03 COVID-19 Vaccine (1) [place] [facility] Test 09:36:18 [code = COVID-19 of Medicine Vaccine (1)] Future Scheduled 2020-11-03 TETANUS SHOT (ADULT) [place] [facility] Test 09:36:18 [code = TETANUS SHOT of Medi cine (ADULT)] Future Scheduled 2020-11-03 Diabetic foot [employer] Test 09:36:18 examination of Medicine (regime/therapy) [code = 839919832] Future Scheduled 2020-11-03 ANNUAL DIABETIC [employer] [facility] [employer] Test 09:36:18 RETINOPATHY SCREENING of Med icine [code = ANNUAL DIABETIC RETINOPATHY SCREENING] Future Scheduled 2020-10-28 WOUND CARE INSTRUCTIONS Ordered: [facility] Test 17:23:33 [code = 56369] 10/28/2020 of Medicine Future Scheduled 2020-10-26 Screening for malignant [facility] Test 23:34:24 neoplasm of colon of Medicin e (procedure) [code = [id number]] Future Scheduled 2020-10-26 COVID-19 Vaccine (1) [place] [facility] Test 23:34:24 [code = COVID-19 of Medicine Vaccine (1)] Future Scheduled 2020-10-26 TETANUS SHOT (ADULT) [place] [facility] Test 23:34:24 [code = TETANUS SHOT of Medi cine (ADULT)] Future Scheduled 2020-10-26 Diabetic foot [employer] Test 23:34:24 examination of Medicine (regime/therapy) [code = 537002654] Future Scheduled 2020-10-26 ANNUAL DIABETIC [employer] Test 23:34:24 RETINOPATHY SCREENING of Med icine [code = ANNUAL DIABETIC RETINOPATHY SCREENING] Future Scheduled 2020-10-[address] [facility] Test 23:34:24 (procedure) [code = of Medic ine 608007040] Future Scheduled 2020-10-26 Human immunodeficiency [facility] Test 23:34:24 virus screening of Medicine (procedure) [code = 901660986] Future Scheduled 2020-10-26 ZOSTER VACCINE (1 of 2) [facility] Test 23:34:24 [code = ZOSTER VACCINE of Me dicine (1 of 2)] Future Scheduled 2020-10-26 MEDICARE AWV (Initial) [facility] [employer] Test 23:34:24 [code = MEDICARE AWV of Medi cine (Initial)] Future Scheduled 2020-10-26 FLU VACCINE > 6 MONTHS [employer] Test 23:34:24 [code = FLU VACCINE > 6 of M edicine MONTHS] Future Scheduled 2020-10-26 BMI FOLLOW UP PLAN [facility] [employer] Test 23:34:24 [code = BMI FOLLOW UP of Med icine PLAN] Future Scheduled 2020-09-02 Screening for malignant [facility] Test 18:54:49 neoplasm of colon of Medicin e (procedure) [code = 000041869] Future Scheduled 2020-09-02 COVID-19 Vaccine (1) [facility] Test 18:54:49 [code = COVID-19 of Medicine Vaccine (1)] Future Scheduled 2020-09-02 TETANUS SHOT (ADULT) [facility] Test 18:54:49 [code = TETANUS SHOT of Medi cine (ADULT)] Future Scheduled 2020-09-02 Diabetic foot [employer] Test 18:54:49 examination of Medicine (regime/therapy) [code = 900764562] Future Scheduled 2020-09-02 ANNUAL DIABETIC [employer] Test 18:54:49 RETINOPATHY SCREENING of Med icine [code = ANNUAL DIABETIC RETINOPATHY SCREENING] Future Scheduled 2020-09-[address] [facility] Test 18:54:49 (procedure) [code = of Medic ine 213816224] Future Scheduled 2020-09-02 Human immunodeficiency [facility] [employer] Test 18:54:49 virus screening of Medicine (procedure) [code = 253894328] Future Scheduled 2020-09-02 ZOSTER VACCINE (1 of 2) [facility] Test 18:54:49 [code = ZOSTER VACCINE of Me dicine (1 of 2)] Future Scheduled 2020-09-02 MEDICARE AWV (Initial) [employer] Test 18:54:49 [code = MEDICARE AWV of [employer] (Initial)] Future Scheduled 2020-09-02 FLU VACCINE > 6 MONTHS B [facility] Test 18:54:49 [code = FLU VACCINE > 6 of M edicine MONTHS] Future Scheduled 2020-09-02 BMI FOLLOW UP PLAN [facility] Test 18:54:49 [code = BMI FOLLOW UP of Med icine PLAN] Future Scheduled 2020-08-19 WOUND CARE INSTRUCTIONS Ordered: [facility] Test 16:42:50 [code = 65703] 08/19/2020 of Medicine Future Scheduled 2020-08-10 [place] DEBRIDEMENT, SKIN, Ordered: [facility] Test 12:01:06 SUB-Q 08/10/2020 of Medicine TISSUE,MUSCLE,=<20 SQ CM [code = 90211] Future Scheduled 2020-08-10 Screening for malignant [facility] Test 11:57:36 neoplasm of colon of Medicin e (procedure) [code = 419345502] Future Scheduled 2020-08-10 COVID-19 Vaccine (1) [facility] Test 11:57:36 [code = COVID-19 of Medicine Vaccine (1)] Future Scheduled 2020-08-10 TETANUS SHOT (ADULT) [facility] Test 11:57:36 [code = TETANUS SHOT of [employer] (ADULT)] Future Scheduled 2020-08-10 Diabetic foot [employer] Test 11:57:36 examination of Medicine (regime/therapy) [code = 520805963] Future Scheduled 2020-08-10 ANNUAL DIABETIC [employer] Test 11:57:36 RETINOPATHY SCREENING of Med icine [code = ANNUAL DIABETIC RETINOPATHY SCREENING] Future Scheduled 2020-08-[address] [facility] Test 11:57:36 (procedure) [code = of Medic ine 180198005] Future Scheduled 2020-08-10 Human immunodeficiency B [facility] Test 11:57:36 virus screening of Medicine (procedure) [code = 574379226] Future Scheduled 2020-08-10 ZOSTER VACCINE (1 of 2) [facility] Test 11:57:36 [code = ZOSTER VACCINE of Me dicine (1 of 2)] Future Scheduled 2020-08-10 MEDICARE AWV (Initial) [facility] Test 11:57:36 [code = MEDICARE AWV of Medi cine (Initial)] Future Scheduled 2020-08-10 FLU VACCINE > 6 MONTHS [employer] Test 11:57:36 [code = FLU VACCINE > 6 of M edicine MONTHS] Future Scheduled 2020-08-10 BMI FOLLOW UP PLAN [employer] Test 11:57:36 [code = BMI FOLLOW UP of Med icine PLAN] Future Scheduled 2020-07-30 BMI FOLLOW UP PLAN [employer] Test 15:31:06 [code = BMI FOLLOW UP of Med icine PLAN] Future Scheduled 2020-07-30 Screening for malignant [facility] Test 08:53:16 neoplasm of colon of Medicin e (procedure) [code = 890318332] Future Scheduled 2020-07-30 COVID-19 Vaccine (1) [place] [facility] Test 08:53:16 [code = COVID-19 of Medicine Vaccine (1)] Future Scheduled 2020-07-30 TETANUS SHOT (ADULT) [facility] Test 08:53:16 [code = TETANUS SHOT of Medi cine (ADULT)] Future Scheduled 2020-07-30 Diabetic foot [employer] Test 08:53:16 examination of Medicine (regime/therapy) [code = 609606188] Future Scheduled 2020-07-30 ANNUAL DIABETIC [employer] Test 08:53:16 RETINOPATHY SCREENING of Med icine [code = ANNUAL DIABETIC RETINOPATHY SCREENING] Future Scheduled 2020-07-[address] [facility] Test 08:53:16 (procedure) [code = of Medic ine 601922593] Future Scheduled 2020-07-30 Human immunodeficiency [facility] Test 08:53:16 virus screening of Medicine (procedure) [code = 117950798] Future Scheduled 2020-07-30 ZOSTER VACCINE (1 of 2) [facility] Test 08:53:16 [code = ZOSTER VACCINE of Oh dicine (1 of 2)] Future Scheduled 2020-07-30 MEDICARE AWV (Initial) [employer] Test 08:53:16 [code = MEDICARE AWV of Medi cine (Initial)] Future Scheduled 2020-07-30 FLU VACCINE > 6 MONTHS [employer] Test 08:53:16 [code = FLU VACCINE > 6 of M edicine MONTHS] Future Scheduled FLU VACCINE > 6 MONTHS [employer] Test [code = FLU VACCINE > 6 of M edicine MONTHS] Future Scheduled COLON CANCER SCREENING: [employer] Test COLONOSCOPY [code = of Medic ine COLON CANCER SCREENING: COLONOSCOPY] Future Scheduled TETANUS SHOT (ADULT) [place] [employer] Test [code = TETANUS SHOT of Medi cine (ADULT)] Future Scheduled Diabetic foot [employer] [facility] examination of Medicine (regime/therapy) [code = 310717371] Future Scheduled ANNUAL DIABETIC [employer] [facility] RETINOPATHY SCREENING of Med [...] 6 of M edicine MONTHS] Future Scheduled [place] DEBRIDEMENT OPEN Ordered: [employer] Test WOUND 20 SQ CM< [code = 07/24/2019 of edicine 43341] Future Scheduled COLON CANCER SCREENING: [employer] Test COLONOSCOPY [code = of Medic ine COLON CANCER SCREENING: COLONOSCOPY] Future Scheduled TETANUS SHOT (ADULT) [place] [employer] Test [code = TETANUS SHOT of Medi cine (ADULT)] Future Scheduled Diabetic foot [employer] [facility] examination of Medicine (regime/therapy) [code = 408806718] Future Scheduled ANNUAL DIABETIC [employer] [facility] RETINOPATHY SCREENING of Med [...] UP of Med icine PLAN] Future Scheduled [place] DEBRIDEMENT OPEN Ordered: [employer] [facility] WOUND 20 SQ CM< [code = 08/07/2019 of edicine 37662] Future Scheduled COLON CANCER SCREENING: [employer] Test COLONOSCOPY [code = of Medic ine COLON CANCER SCREENING: COLONOSCOPY] Future Scheduled TETANUS SHOT (ADULT) [place] [employer] Test [code = TETANUS SHOT of Medi cine (ADULT)] Future Scheduled Diabetic foot [employer] [facility] examination of Medicine (regime/therapy) [code = 161459087] Future Scheduled ANNUAL DIABETIC [employer] [...] UP of Med icine PLAN] Future Scheduled [place] DEBRIDEMENT OPEN Ordered: [employer] Test WOUND 20 SQ CM< [code = 08/22/2019 of M edicine 18174] Future Scheduled [place] POST-OP FOLLOW-UP Ordered: [place] [employer] Test VISIT [code = 66422] 08/22/2019 of Medi cine Future Scheduled SUTURE REMOVAL KIT Ordered: [employer] Test [code = NOCPT] 09/01/2019 of Medicine Future Scheduled COLON CANCER SCREENING: [facility] [employer] [facility] COLONOSCOPY [code = of Medic ine COLON CANCER SCREENING: COLONOSCOPY] Future Scheduled TETANUS SHOT (ADULT) [place] [employer] Test [code = TETANUS SHOT of Medi cine (ADULT)] Future Scheduled Diabetic foot [employer] [facility] examination of Medicine (regime/therapy) [code = 129090262] Future Scheduled ANNUAL DIABETIC [employer] [...] SCREENING: COLONOSCOPY] Future Scheduled TETANUS SHOT (ADULT) [place] [employer] Test [code = TETANUS SHOT of Medi cine (ADULT)] Future Scheduled Diabetic foot [employer] [facility] examination of Medicine (regime/therapy) [code = 336678723] Future Scheduled ANNUAL DIABETIC [employer] [facility] RETINOPATHY SCREENING of Med [...] SCREENING: COLONOSCOPY] Future Scheduled TETANUS SHOT (ADULT) [place] [employer] Test [code = TETANUS SHOT of Medi cine (ADULT)] Future Scheduled Diabetic foot [employer] [facility] examination of Medicine (regime/therapy) [code = 901053529] Future Scheduled ANNUAL DIABETIC [employer] [...] UP of Med icine PLAN] Future Scheduled [place] DEBRIDEMENT, SKIN, Ordered: [employer] Test SUB-Q TISSUE,=<20 SQ CM 10/04/2019 of M edicine [code = 26119] Future Scheduled COLON CANCER SCREENING: [employer] Test COLONOSCOPY [code = of Medic ine COLON CANCER SCREENING: COLONOSCOPY] Future Scheduled TETANUS SHOT (ADULT) [place] [employer] Test [code = TETANUS SHOT of Medi cine (ADULT)] Future Scheduled Diabetic foot [employer] [facility] examination of Medicine (regime/therapy) [code = 159013857] Future Scheduled ANNUAL DIABETIC [employer] [...] UP of Med icine PLAN] Future Scheduled [place] POST-OP FOLLOW-UP Ordered: [place] [employer] Test VISIT [code = 76299] 12/06/2019 of Medi cine Future Scheduled COLON CANCER SCREENING: [employer] Test COLONOSCOPY [code = of Medic ine COLON CANCER SCREENING: COLONOSCOPY] Future Scheduled TETANUS SHOT (ADULT) [place] [employer] Test [code = TETANUS SHOT of Medi cine (ADULT)] Future Scheduled Diabetic foot [employer] [facility] examination of Medicine (regime/therapy) [code = 897590384] Future Scheduled ANNUAL DIABETIC [employer] [...] SCREENING: COLONOSCOPY] Future Scheduled TETANUS SHOT (ADULT) [place] [employer] Test [code = TETANUS SHOT of Medi cine (ADULT)] Future Scheduled Diabetic foot [employer] Test examination of Medicine (regime/therapy) [code = 995279622] Future Scheduled ANNUAL DIABETIC [employer] [facility] RETINOPATHY SCREENING of Med icine [code = ANNUAL DIABETIC RETINOPATHY SCREENING] Future Scheduled HEPATITIS C SCREENING [employer] Test [code = HEPATITIS C of Medic ine SCREENING] Future Scheduled HIV SCREENING [code = [employer] [facility] HIV SCREENING] of Medicine Future Scheduled ZOSTER VACCINE (1 of 2) [employer] Test [code = ZOSTER VACCINE of [...] SCREENING: COLONOSCOPY] Future Scheduled TETANUS SHOT (ADULT) [place] [employer] Test [code = TETANUS SHOT of Medi cine (ADULT)] Future Scheduled Diabetic foot [employer] Test examination of Medicine (regime/therapy) [code = 058436652] Future Scheduled ANNUAL DIABETIC [employer] [facility] RETINOPATHY SCREENING of Med icine [code = ANNUAL DIABETIC RETINOPATHY SCREENING] Future Scheduled HEPATITIS C SCREENING [employer] Test [code = HEPATITIS C of Medic ine SCREENING] Future Scheduled HIV SCREENING [code = [employer] [facility] HIV SCREENING] of Medicine Future Scheduled ZOSTER VACCINE (1 of 2) [employer] Test [code = ZOSTER VACCINE of [...] icine PLAN] Future Scheduled COLON CANCER SCREENING: [employer] Test COLONOSCOPY [code = of Medic ine COLON CANCER SCREENING: COLONOSCOPY] Future Scheduled COVID-19 Vaccine [employer] Test Evaluation [code = of Medici ne COVID-19 Vaccine Evaluation] Future Scheduled TETANUS SHOT (ADULT) [place] [employer] Test [code = TETANUS SHOT of Medi cine (ADULT)] Future Scheduled Diabetic foot [employer] [facility] examination of Medicine (regime/therapy) [code = 686270871] Future Scheduled ANNUAL DIABETIC [employer] [facility] RETINOPATHY SCREENING of Med icine [code = ANNUAL DIABETIC RETINOPATHY SCREENING] Future Scheduled HEPATITIS C SCREENING [employer] Test [code = HEPATITIS C of Medic ine SCREENING] Future Scheduled HIV SCREENING [code = [employer] [facility] HIV SCREENING] of Medicine Future Scheduled ZOSTER VACCINE (1 of 2) [employer] Test [code = ZOSTER VACCINE of [...] CANCER SCREENING: COLONOSCOPY] Future Scheduled COVID-19 Vaccine [employer] Test Evaluation [code = of Medici ne COVID-19 Vaccine Evaluation] Future Scheduled TETANUS SHOT (ADULT) [place] [employer] Test [code = TETANUS SHOT of Medi cine (ADULT)] Future Scheduled Diabetic foot [employer] [facility] examination of Medicine (regime/therapy) [code = 376545468] Future Scheduled ANNUAL DIABETIC [employer] [facility] RETINOPATHY SCREENING of Med icine [code = ANNUAL DIABETIC RETINOPATHY SCREENING] Future Scheduled HEPATITIS C SCREENING [employer] Test [code = HEPATITIS C of Medic ine SCREENING] Future Scheduled HIV SCREENING [code = [employer] [facility] HIV SCREENING] of Medicine Future Scheduled ZOSTER VACCINE (1 of 2) [employer] Test [code = ZOSTER VACCINE of [...] icine PLAN] Future Scheduled COLON CANCER SCREENING: [employer] Test COLONOSCOPY [code = of Medic ine COLON CANCER SCREENING: COLONOSCOPY] Future Scheduled COVID-19 Vaccine [employer] [facility] Evaluation [code = of Medici ne COVID-19 Vaccine Evaluation] Future Scheduled TETANUS SHOT (ADULT) [place] [employer] Test [code = TETANUS SHOT of Medi cine (ADULT)] Future Scheduled Diabetic foot [employer] Test examination of Medicine (regime/therapy) [code = 698893693] Future Scheduled ANNUAL DIABETIC [employer] [facility] RETINOPATHY SCREENING of Med icine [code = ANNUAL DIABETIC RETINOPATHY SCREENING] Future Scheduled HEPATITIS C SCREENING [employer] Test [code = HEPATITIS C of Medic ine SCREENING] Future Scheduled HIV SCREENING [code = [employer] [facility] HIV SCREENING] of Medicine Future Scheduled ZOSTER VACCINE (1 of 2) [employer] Test [code = ZOSTER VACCINE of [...] UP of Med icine PLAN] Future Scheduled [place] DEBRIDEMENT, SKIN, Ordered: [employer] Test SUB-Q TISSUE,=<20 SQ CM 05/25/2020 of M edicine [code = 98108] Future Scheduled Screening for malignant [employer] Test neoplasm of colon of Medicin e (procedure) [code = 371389169] Future Scheduled TETANUS SHOT (ADULT) [place] [employer] Test [code = TETANUS SHOT of Medi cine (ADULT)] Future Scheduled COVID-19 Vaccine (1) [place] [employer] Test [code = COVID-19 of Medicine Vaccine (1)] Future Scheduled Diabetic foot [employer] Test examination of Medicine (regime/therapy) [code = 921236317] Future Scheduled ANNUAL DIABETIC [employer] [facility] RETINOPATHY SCREENING of Med icine [code = ANNUAL DIABETIC RETINOPATHY SCREENING] Future Scheduled Hepatitis C screening [employer] Test (procedure) [code = of Medic ine 018623583] Future Scheduled Human immunodeficiency [employer] Test virus screening of Medicine (procedure) [code = 661688097] Future Scheduled ZOSTER VACCINE (1 of 2) [employer] Test [code = ZOSTER VACCINE of [...] icine PLAN] Future Scheduled Screening for malignant [employer] Test neoplasm of colon of Medicin e (procedure) [code = 791376519] Future Scheduled TETANUS SHOT (ADULT) [place] [employer] Test [code = TETANUS SHOT of Medi cine (ADULT)] Future Scheduled COVID-19 Vaccine (1) [place] [employer] Test [code = COVID-19 of Medicine Vaccine (1)] Future Scheduled Diabetic foot [employer] Test examination of Medicine (regime/therapy) [code = 647190573] Future Scheduled ANNUAL DIABETIC [employer] [facility] RETINOPATHY SCREENING of Med icine [code = ANNUAL DIABETIC RETINOPATHY SCREENING] Future Scheduled Hepatitis C screening [employer] Test (procedure) [code = of Medic ine 382005348] Future Scheduled Human immunodeficiency [employer] Test virus screening of Medicine (procedure) [code = 616119364] Future Scheduled ZOSTER VACCINE (1 of 2) [employer] Test [code = ZOSTER VACCINE of [...] icine PLAN] Future Scheduled Screening for malignant [employer] Test neoplasm of colon of Medicin e (procedure) [code = 496085813] Future Scheduled TETANUS SHOT (ADULT) [place] [employer] Test [code = TETANUS SHOT of Medi cine (ADULT)] Future Scheduled COVID-19 Vaccine (1) [place] [employer] Test [code = COVID-19 of Medicine Vaccine (1)] Future Scheduled Diabetic foot [employer] Test examination of Medicine (regime/therapy) [code = 329925408] Future Scheduled ANNUAL DIABETIC [employer] [facility] RETINOPATHY SCREENING of Med icine [code = ANNUAL DIABETIC RETINOPATHY SCREENING] Future Scheduled Hepatitis C screening [employer] Test (procedure) [code = of Medic ine 077099534] Future Scheduled Human immunodeficiency [employer] Test virus screening of Medicine (procedure) [code = 142075195] Future Scheduled ZOSTER VACCINE (1 of 2) [employer] Test [code = ZOSTER VACCINE of [...] edicine MONTHS] Future Scheduled COLON CANCER SCREENING: [facility] Test COLONOSCOPY [code = of Medic ine COLON CANCER SCREENING: COLONOSCOPY] Future Scheduled TETANUS SHOT (ADULT) [place] [employer] Test [code = TETANUS SHOT of Medi cine (ADULT)] Future Scheduled Diabetic foot [employer] Test examination of Medicine (regime/therapy) [code = 943332226] Future Scheduled ANNUAL DIABETIC [employer] [facility] RETINOPATHY SCREENING of Med icine [code = ANNUAL DIABETIC RETINOPATHY SCREENING] Future Scheduled BMI FOLLOW UP PLAN [facility] Test [code = BMI [...] Facility Department ID 2020-12-13 Outpatient PEDRO LUIS [facility] Surgery [id number] [facility] 08:44:41 EMILY 2020-12-12 Inpatient PEDRO LUIS [facility] Surgery [id number] SLE 22:13:11 EMILY 2020-12-10 Outpatient PEDRO LUIS [facility] Surgery [id number] [facility] 02:17:18 EMILY 2020-12-09 Outpatient PEDRO LUIS [facility] Surgery [id number] SLE 22:29:35 EMILY 2020-04-16 Outpatient READMISSIO ENCCLR EN[facility]LR [id number] EN[facility]LR 10:19:52 N 2019-12-05 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 [id number] SLE 20:39:00 MARIO 2019-11-05 Inpatient ER RANDY [facility] Podiatry [id number] SLE 20:36:00 JORGITO 2019-06-14 Inpatient [facility] [id number] SLE 08:29:14 [id number] 2021-02-03 2021-02-03 Office RYAN CLOUD [id number] [facility] 13:14:52 16:33:05 Visit [facility] 350.1.13.21 College Y 0.2.7.2.686 of [id number] [facility] greyson 825 e 2021-01-20 2021-01-20 Office RYAN Castañeda 1.2.840.114 [id number] [facility] 10:30:00 11:39:37 Visit Clark Wilson AMBULATOR 350.1.13.21 College Y 0.2.7.2.686 of [id number] [facility] 825 e 2021-01-20 2021-01-20 Outpatient [facility] [id number] [facility] 09:42:48 11:20:43 Colleg e of Medicin e 2020-12-23 2020-12-23 Office RYAN Cloud 1.2.840.114 [id number] [facility] 15:16:17 16:42:07 Visit Star A AMBULATOR 350.1.13.21 College Y 0.2.7.2.686 of [id number] [facility] 825 e 2020-11-25 2020-11-25 Office RYAN Cloud 1.2.840.114 [id number] [facility] 14:15:01 16:08:45 Visit Star [employer] 350.1.13.21 College Y 0.2.7.2.686 of [id number] [facility] 825 e 2020-10-28 2020-10-29 Office RYAN Cloud 1.2.840.114 [id number] [facility] 16:05:09 16:10:43 Visit Star A [employer]ATOR 350.1.13.21 College Y 0.2.7.2.686 of [id number] [facility] 825 e 2020-10-14 2020-10-15 Office RYAN Cloud 1.2.840.114 [id number] [facility] 15:36:26 15:08:28 Visit Star [employer] 350.1.13.21 College Y 0.2.7.2.686 of [id number] [facility] 825 e 2020-10-14 2020-10-14 Outpatient RYAN CASTAÑEDA [facility] [id number] [facility] 14:06:22 16:51:07 CLARK doherty of Medicin e 2020-09-16 2020-09-16 Outpatient [facility] [id number] [facility] 20:09:00 23:59:00 Colleg e of Medicin e 2020-09-16 2020-09-16 Emergency ER [facility] Emergency [id number] [facility] 18:17:00 18:17:00 2020-08-19 2020-08-19 Office RYAN Cloud 1.2.840.114 [id number] [facility] 14:57:45 16:54:41 Visit Star [employer] 350.1.13.21 College Y 0.2.7.2.686 of [id number] [facility] 825 e 2020-08-05 2020-08-05 Office SIRISHA CloudLaisha 1.2.840.114 [id number] [facility] 13:00:06 14:46:27 Visit Star A AMBULATOR 350.1.13.21 College Y 0.2.7.2.686 of [id number] [facility] 825 e 2020-07-22 2020-07-22 Office RYAN Cloud 1.2.840.114 [id number] [facility] 13:04:56 14:30:33 Visit Star A AMBULATOR 350.1.13.21 College Y 0.2.7.2.686 of [id number] [facility] 825 e 2020-07-03 2020-07-03 Outpatient [facility] [id number] [facility]00 [facility] 2020-06-26 2020-06-26 [facility] [id number]00 [facility] 2020-06-24 2020-06-24 Office RYAN Cloud 1.2.840.114 [id number] [facility] 15:12:49 15:42:49 Visit Star [employer] 350.1.13.21 College Y 0.2.7.2.686 of [id number] [facility] 825 e 2020-05-27 2020-05-27 Outpatient [facility] [id number] SLE 00:00:00 00:00:00 2020-05-27 2020-05-27 Outpatient [facility] [id number] SLE 00:00:00 00:00:00 2020-05-27 2020-05-27 Outpatient [facility] [id number] SLE 00:00:00 00:00:00 2020-05-26 2020-05-26 Outpatient [facility] [id number] SLE 00:00:00 00:00:00 2020-05-20 2020-05-22 Office RYAN Cloud 1.2.840.114 [id number] 15:57:14 16:30:11 Visit Star A AMBULATOR 350.1.13.21 Y 0.2.7.2.686 [id number] [facility] 2020-05-20 2020-05-22 Office RYAN Cloud 1.2.840.[id number] [place] [address] 15:57:14 16:30:11 Visit Star [employer] 350.1.13.21 College Y 0.2.7.2.686 of [id number] [address] 2020-05-13 2020-05-13 Office RYAN Cloud 1.2.840.114 [id number] 16:12:46 17:00:07 Visit Star A AMBULATOR 350.1.13.21 Y 0.2.7.2.686 [id number] [facility] 2020-05-13 2020-05-13 Office RYAN Cloud 1.2.840.[id number] [place] [address] 16:12:46 17:00:07 Visit Star [employer] AMB[employer]ATOR 350.1.13.21 College Y 0.2.7.2.686 of [id number] [place] [address] e 2020-04-29 2020-04-29 Office RYAN Cloud 1.2.840.114 [id number] 15:18:12 16:41:00 Visit Star A AMBULATOR 350.1.13.21 Y 0.2.7.2.686 [id number] [facility] 2020-04-29 2020-04-29 Office RYAN Cloud 1.2.840.[id number] [place] [address] 15:18:12 16:41:00 Visit Star A AMBULATOR 350.1.13.21 College Y 0.2.7.2.686 of [id number] [facility] 825 e 2020-04-16 2020-04-16 Outpatient Natalio HCAPM LABO [id number] [facility] 17:21:00 17:21:00 Oral [id number] [facility] 2020-04-16 2020-04-16 Outpatient Natalio HCAPM LABO [id number] [facility] 17:21:00 17:21:00 Oral [id number] [facility] 2020-04-11 2020-04-11 Emergency [place] [id number] [address] [place] [address] 00:00:00 00:00:[address] [facility] [address] 2020-04-08 2020-04-08 Office RYAN Cloud 1.2.840.114 [id number] 15:02:21 16:42:00 Visit Star A AMBULATOR 350.1.13.21 Y 0.2.7.2.686 [id number] [facility] 2020-04-08 2020-04-08 Office RYAN Cloud 1.2.840.[id number] [place] [address] 15:02:21 16:42:00 Visit Star A AMBULATOR 350.1.13.21 College Y 0.2.7.2.686 of [id number] [facility] 825 e 2020-04-07 2020-04-07 Outpatient Princess, HCAPM LABO [id number] [facility] 16:16:00 16:16:00 John [id number] [facility] 2020-03-11 2020-03-11 Outpatient BHAVESH PADILLA [facility] Med 919 [id number] [facility] 18:57:00 18:57:00 JORGITO 2020-03-11 2020-03-11 Office RYAN Cloud 1.2.840.114 [id number] 14:49:58 16:51:58 Visit Star A AMBULATOR 350.1.13.21 Y 0.2.7.2.686 [id number] [facility] 2020-03-11 2020-03-11 Office RYAN Cloud 1.2.840.114 [id number] [address] 14:49:58 16:51:58 Visit Star A AMBULATOR 350.1.13.21 College Y 0.2.7.2.686 of [id number] [facility] 825 e 2020-02-27 2020-02-27 Outpatient KNOW, HCABM OPLA [id number] [facility] 19:43:00 19:43:00 DOES_NOT [id number] [facility] 2020-02-26 2020-02-26 Outpatient KNOW, HCABM OPLA [id number] -20 [facility] 08:45:00 08:45:00 DOES_NOT [id number] [facility] 2020-02-22 2020-02-22 Outpatient KNOW, HCABM OPLA [id number] -20 [facility] 20:50:00 20:50:00 DOES_NOT [id number] [facility] 2020-02-21 2020-02-21 Outpatient KNOW, [facility] OPLA [id number] -20 [facility] 20:31:00 20:31:00 DOES_NOT [id number] [facility] 2020-01-06 2020-01-06 Emergency ER SLE Emergency [id number] [facility] 16:00:00 16:00:00 2020-01-01 2020-01-01 Office Pedro Luis, RYAN 1.2.840.114 [id number] 16:15:05 16:45:39 Visit Star Bean AMBULATOR 350.1.13.21 Y 0.2.7.2.686 [id number] [facility] 2020-01-01 2020-01-01 Office Pedro Luis, RYAN 1.2.840.[id number] [place] [address] 16:15:05 16:45:39 Visit Star Bean AMBULATOR 350.1.13.21 College Y 0.2.7.2.686 of [id number] [facility] 825 e 2020-01-01 2020-01-01 Office Castañeda, BCM 1.2.840.114 [id number] 15:18:00 16:17:05 Visit Clark Wilson AMBULATOR 350.1.13.21 Y 0.2.7.2.686 [id number] 2020-01-01 2020-01-01 Office Castañeda, BCM 1.2.840.[id number] [place] [address] 15:18:00 16:17:05 Visit Clark L AMBULATOR 350.1.13.21 College Y 0.2.7.2.686 of [id number] [facility] 825 e 2019-12-05 2019-12-05 Office RYAN Cloud 1.2.840.114 [id number] 13:43:23 16:06:29 Visit Star A AMBULATOR 350.1.13.21 Y 0.2.7.2.686 [id number] [facility] 2019-12-05 2019-12-05 Office SIRISHA CloudLaisha 1.2.840.[id number] [place] [address] 13:43:23 16:06:29 Visit Star A AMBULATOR 350.1.13.21 College Y 0.2.7.2.686 of [id number] [facility] 825 e 2019-10-16 2019-10-16 Outpatient SLEH SLE [id number] [facility] 00:00:00 00:00:00 2019-10-12 2019-10-12 Outpatient EL SLE SLE [id number] [facility] 00:00:00 00:00:00 2019-10-02 2019-10-02 Office SIRISHA CloudLaisha 1.2.840.114 [id number] 14:21:54 16:08:48 Visit Star A AMBULATOR 350.1.13.21 Y 0.2.7.2.686 [id number] [facility] 2019-10-02 2019-10-02 Office Pedro Luis SIRISHALaisha 1.2.840.[id number] [place] [address] 14:21:54 16:08:48 Visit Star A AMBULATOR 350.1.13.21 College Y 0.2.7.2.686 of [id number] [facility] 825 e 2019-09-12 2019-09-12 Outpatient EL SLE SLE [id number] [facility] 00:00:00 00:00:00 2019-09-10 2019-09-10 Outpatient SLE SLEH [id number] [facility] 00:00:00 00:00:00 2019-09-04 2019-09-04 Office SIRISHA CloudLaisha 1.2.840.114 [id number] 14:17:20 16:48:51 Visit Star A AMBULATOR 350.1.13.21 Y 0.2.7.2.686 [id number] [facility] 2019-09-04 2019-09-04 Office RYAN Cloud 1.2.840.114 [id number] 14:17:20 16:48:51 Visit Star A AMBULATOR 350.1.13.21 College Y 0.2.7.2.686 of [id number] [facility] 825 e 2019-09-04 2019-09-04 Office RYAN Castañeda 1.2.840.114 [id number] 14:17:07 16:48:39 Visit Clark Wilson AMBULATOR 350.1.13.21 Y 0.2.7.2.686 [id number] [facility] 2019-09-04 2019-09-04 Office RYAN Castañeda 1.2.840.[id number] [place] [address] 14:17:07 16:48:39 Visit Clark Wilson AMBULATOR 350.1.13.21 College Y 0.2.7.2.686 of [id number] [place] [address] e 2019-08-21 2019-08-21 Office RYAN Cloud 1.2.840.114 [id number] 16:46:14 16:46:14 Visit Star A AMBULATOR 350.1.13.21 Y 0.2.7.2.686 [id number] [facility] 2019-08-21 2019-08-21 Office RYAN lCoud 1.2.840.[id number] [place] [address] 16:46:14 16:46:14 Visit Star A AMBULATOR 350.1.13.21 College Y 0.2.7.2.686 of [id number] [facility] 825 e 2019-08-07 2019-08-07 Office RYAN Cloud 1.2.840.114 [id number] 13:10:09 16:34:44 Visit Star A AMBULATOR 350.1.13.21 Y 0.2.7.2.686 [id number] [facility] 2019-08-07 2019-08-07 Office Pedro Luis BCLaisha 1.2.840.114 [id number] [address] 13:10:09 16:34:44 Visit Star A AMBULATOR 350.1.13.21 College Y 0.2.7.2.686 of [id number] [facility] 825 e 2019-07-24 2019-07-24 Office RYAN Cloud 1.2.840.114 [id number] 13:35:06 14:05:03 Visit Star A AMBULATOR 350.1.13.21 Y 0.2.7.2.686 [id number] [facility] 2019-07-24 2019-07-24 Office RYAN Cloud 1.2.840.114 [id number] [address] 13:35:06 14:05:03 Visit Star A AMBULATOR 350.1.13.21 College Y 0.2.7.2.686 of [id number] [facility] 825 e 2019-07-17 2019-07-17 Office RYAN Castañeda 1.2.840.114 [id number] 11:22:05 16:23:11 Visit Clark Wilson AMBULATOR 350.1.13.21 Y 0.2.7.2.686 [id number] [facility] 2019-07-17 2019-07-17 Office RYAN Castañeda 1.2.840.114 [id number] [address] 11:22:05 16:23:11 Visit Clark Wilson AMBULATOR 350.1.13.21 College Y 0.2.7.2.686 of [id number] [facility] 825 e 2019-07-14 2019-07-14 Outpatient RECERTIFIC NATALIO ENCCLR ENCCLR [id number] ENCCLR 00:00:00 00:00:00 CHIOMA SEARS 2019-07-10 2019-07-10 Office RYAN Cloud 1.2.840.114 [id number] 15:58:34 16:52:46 Visit Star A AMBULATOR 350.1.13.21 Y 0.2.7.2.686 [id number] [facility] 2019-07-10 2019-07-10 Office RYAN Cloud 1.2.840.114 [id number] [address] 15:58:34 16:52:46 Visit Star A AMBULATOR 350.1.13.21 College Y 0.2.7.2.686 of [id number] [facility] 825 e 2019-05-10 2019-05-10 Outpatient MACEDONIAN, [facility] [id number] [address] [place] 00:00:00 00:00:00 [place] [address] 2019-05-10 2019-05-10 Outpatient MACEDONIAN, [facility] [id number] [address] [place] 00:00:00 00:00:00 W[place] [address] 2019-05-09 2019-05-09 Outpatient MACEDONIAN, [facility] [id number] [address] [place] 00:00:00 00:00:00 W[place] [address] 2019-05-08 2019-05-08 Outpatient MACEDONIAN, [facility] [id number] [address]69 [place] 00:00:00 00:00:00 WILMER [address] 2018-09-08 2018-09-08 Outpatient ANANDA [facility] 580 [id number] [place] 00:00:00 00:00:00 , ABRAHAM 027 Metho di [...] code = 994) seen FUNGUS CULTURE + [id number] 01:34:00 Test Item Value Reference Range Interpretation Comments CULTURE (BEAKER) (test No fungus isolated in code = 1095) 28 days FUNGUS SMEAR (BEAKER) No fungi seen (test code = 1406) FUNGUS CULTURE + [id number] 01:24:00 Test Item Value Reference Range Interpretation Comments CULTURE (BEAKER) (test No fungus isolated in code = 1095) 28 days FUNGUS SMEAR (BEAKER) No fungi seen (test code = 1406) SURGICALLY OBTAINED CULTURE + GRAM [id number] 16:50:00 Test Item Value Reference Interpretation Comments [...] testing perform ed only after consultation wi th the clinical [...] No organisms (BEAKER) (test code seen = 884532) GRAM STAIN RESULT No organisms (BEAKER) (test code seen = 154560) POCT-GLUCOSE [id number] 21:10:00 Test Item Value Reference Range Interpretation Comments POC-GLUCOSE METER 142 mg/dL 70-110 H : TESTED A T [facility] 6720 (BEAKER) (test code = D[facility] [place], 1538) 11558: Repairer Maintenance Building/Techni estefani ID = [id number] for CA TIMA SHETTY POCT-GLUCOSE [id number] 11:54:00 Test Item Value Reference Range Interpretation Comments POC-GLUCOSE METER 103 mg/dL 70-110 : TESTED A T [facility] 6720 (BEAKER) (test code = [facility], 153) 72260: Repairer Maintenance Building/Techni estefani ID = [id number] for JACOB LYLES POCT-GLUCOSE [id number] 08:41:00 Test Item Value Reference Range Interpretation Comments POC-GLUCOSE METER 83 mg/dL 70-110 : TESTED A T [facility] 6720 (BEAKER) (test code = [facility], 1538) 45484: Repairer Maintenance Building/Techni estefani ID = [id number] for QUANG CASTANEDA, JACOB POCT-GLUCOSE [id number] 07:07:00 Test Item Value Reference Range Interpretation Comments POC-GLUCOSE METER 68 mg/dL 70-110 L : TESTED A T [facility] 6720 (BEAKER) (test code = [facility], 153) 43422: Repairer Maintenance Building/Techni estefani ID = [id number] for TEJINDER KITCHEN CBC (HEMOGRAM ONLY)2020-10-03 06:23:00 [...] 0-0 (BEAKER) (test code = 413) POCT-GLUCOSE [id number] 17:51:00 Test Item Value Reference Range Interpretation Comments POC-GLUCOSE METER 141 mg/dL 70-110 H : TESTED A T [facility] 6720 (BEAKER) (test code = [facility] [place], 1538) 46368: Repairer Maintenance Building/Techni estefani ID = [id number] for Ronald Coffman TISSUE [id number] 13:40:00Surgical Pathology Report Case: [id number] Authorizing Provider: Star Cloud DPM Collected: 09/20/2020 10:59 AM Ordering Location: [address] Received: 09/22/2020 08:28 AM Service Pathologist: Saira Chávez MD Specimen: Bone, Bone Eschar Soft Tissue Right Foot ESCHAR AND SOFT TISSUE, RIGHT FOOT, EXCISION: - SKIN AND SOFT TISSUE WITH GANGRENOUS NECROSIS,, ABSECESS AND FIBRINOPURULENT EXUDATE - GMS STAIN NEGATIVE FOR FUNGAL ORGANISM Signing Pathologist Direct Phone Line: [phone] signed by Saira Chávez MD on 10/02/2020 at 1:40 PMCorrelation with culture study is recommended.95721, 30029Woxkepqi ulcer, forefoot leftBone tissue, bone eschar soft tissue right foot A. Received are multiple pieces of baca-black, flat, necrotic skin and soft tissue from 0.5 to 2 x 2 cm excised to a depth of less than 0.1 cm. Ophthalmic Pathologist sections are submitted in cassette A1. KM/ewThe interpretation of this case included the use of immunohistochemistry or special stains. GMS- NegativeControl Slides Examined: In-house known positive controls were evaluated along with the test tissue. These control slides run alongside of the patients sample show appropriate staining. Internal positive and negative controls when available are evaluated Immunohistochemistry technical testing was performed at [facility], Pathology Laboratory where it was developed and [...] to perform high complexity clinical laboratory testing.POCT-GLUCOSE [id number] 13:28:00 Test Item Value Reference Range Interpretation Comments POC-GLUCOSE METER 77 mg/dL 70-110 : [facility] T [facility] 6720 [facility] (test code = [facility], 1538) 21278: Repairer Maintenance Building/Techni estefani ID = [id number] for Aminata ie, Ronald [id number] 12:03:00 Test Item Value Reference Range Interpretation Comments ACTIVATED CLOTTING TIME 323 sec : 74 -137 seconds, (BEAKER) (test code = Baseli ne: TESTED AT 441) [facility] 6720 [facility], 770 30: Repairer Maintenance Building/Techni estefani ID = [id number] for AMADA BOLDEN POCT-GLUCOSE [id number] 07:25:00 Test Item Value Reference Range Interpretation Comments POC-GLUCOSE METER 73 mg/dL 70-110 : TESTED A T [facility] 6720 (BEAKER) (test code = [facility], 1538) 90442: Repairer Maintenance Building/Techni estefani ID = [id number] for AMADA DUKES CBC (HEMOGRAM ONLY)2020-10-02 05:34:00 [...] 0-0 (BEAKER) (test code = 413) POCT-GLUCOSE [id number] 01:02:00 Test Item Value Reference Range Interpretation Comments POC-GLUCOSE METER 91 mg/dL 70-110 : TESTED A T [facility] 6720 (BEAKER) (test code = [facility], 153) 19515: Repairer Maintenance Building/Techni estefani ID = [id number] for Katelin Telloa POCT-GLUCOSE [id number] 22:29:00 Test Item Value Reference Range Interpretation Comments POC-GLUCOSE METER 101 mg/dL 70-110 : TESTED A T [facility] 6720 (BEAKER) (test code = [facility], [facility]) 22355: Repairer Maintenance Building/Techni estefani ID = [id number] for Co Katelin nguyena POCT-GLUCOSE [id number] 17:20:00 Test Item Value Reference Range Interpretation Comments POC-GLUCOSE METER 147 mg/dL 70-110 H : TESTED A T [facility] 6720 (BEAKER) (test code = [facility], 153) 99379: Repairer Maintenance Building/Techni estefani ID = [id number] for FA ITH, GUNNER POCT-GLUCOSE [id number] 12:35:00 Test Item Value Reference Range Interpretation Comments POC-GLUCOSE METER 75 mg/dL 70-110 : TESTED A T [facility] 6720 (BEAKER) (test code = [facility], 153) 91768: Repairer Maintenance Building/Techni estefani ID = [id number] for FAIT H, GUNNER CBC (HEMOGRAM ONLY)2020-10-01 05:49:00 Test Item Value [...] 0-0 (BEAKER) (test code = 413) POCT-GLUCOSE [id number] 21:43:00 Test Item Value Reference Range Interpretation Comments POC-GLUCOSE METER 130 mg/dL 70-110 H : TESTED A T [facility] 6720 ([facility]) (test code = [facility], [facility]) 99497: Repairer Maintenance Building/Techni estefani ID = [id number] for Sully Rivera POCT-GLUCOSE [id number] 18:06:00 Test Item Value Reference Range Interpretation Comments POC-GLUCOSE METER 85 mg/dL 70-110 : TESTED A T [facility] 6720 (BEAKER) (test code = [facility], 153) 19481: Repairer Maintenance Building/Techni estefani ID = [id number] for QUANG OS, JACOB POCT-GLUCOSE [id number] 12:10:00 Test Item Value Reference Range Interpretation Comments POC-GLUCOSE METER 105 mg/dL 70-110 : TESTED A T [facility] 6720 (BEAKER) (test code = [facility], 153) 64580: Repairer Maintenance Building/Techni estefani ID = [id number] for SA NTOS, JACOB POCT-GLUCOSE [id number] 08:18:00 Test Item Value Reference Range Interpretation Comments POC-GLUCOSE METER 79 mg/dL 70-110 : TESTED A T [facility] 6720 (BEAKER) (test code = [facility], 153) 00244: Repairer Maintenance Building/Techni estefani ID = [id number] for JACOB MENDOZA CBC (HEMOGRAM ONLY)2020-09-30 04:35:00 Test Item Value [...] 0-0 (BEAKER) (test code = 413) POCT-GLUCOSE [id number] 21:43:00 Test Item Value Reference Range Interpretation Comments POC-GLUCOSE METER 122 mg/dL 70-110 H : TESTED A T [facility] 6720 (BEAKER) (test code = [facility], 153) 80918: Repairer Maintenance Building/Techni estefani ID = [id number] for TIMA CHÁVEZ POCT-GLUCOSE [id number] 16:21:00 Test Item Value Reference Range Interpretation Comments POC-GLUCOSE METER 105 mg/dL 70-110 : TESTED A T [facility] 6720 (BEAKER) (test code [facility], = 1538) 57430: Repairer Maintenance Building/Techni estefani ID = [id number] for LATT TRICE - COLLINS BYNUM POCT-GLUCOSE [id number] 12:38:00 Test Item Value Reference Range Interpretation Comments POC-GLUCOSE METER 79 mg/dL 70-110 : TESTED A T [facility] 6720 (BEAKER) (test code = [facility], 1538) 84777: Repairer Maintenance Building/Techni estefani ID = [id number] for LATT IMFELIPA - FLETCHER, COLLINS POCT-GLUCOSE [id number] 07:57:00 Test Item Value Reference Range Interpretation Comments POC-GLUCOSE METER 84 mg/dL 70-110 : TESTED A T [facility] 6720 (BEAKER) (test code = [facility], 1538) 55937: Repairer Maintenance Building/Techni estefani ID = [id number] for LATT TRICE - FLETCHER, COLLINS [id number] 05:25:00 Test Item Value Reference Range Interpretation [...] 0-0 (BEAKER) (test code = 413) POCT-GLUCOSE [id number] 21:38:00 Test Item Value Reference Range Interpretation Comments POC-GLUCOSE METER 138 mg/dL 70-110 H : TESTED A T [facility] 6720 (AKER) (test code = [facility], 1538) 24372: Repairer Maintenance Building/Techni estefani ID = [id number] for JAD SALGUERO POCT-GLUCOSE [id number] 17:13:00 Test Item Value Reference Range Interpretation Comments POC-GLUCOSE METER 97 mg/dL 70-110 : TESTED A T [facility] 6720 (BEAKER) (test code = [facility], 1538) 64932: Repairer Maintenance Building/Techni estefani ID = [id number] for GUNNER MUHAMMAD POCT-GLUCOSE [id number] 12:15:00 Test Item Value Reference Range Interpretation Comments POC-GLUCOSE METER 105 mg/dL 70-110 : TESTED A T [facility] 6720 (BEAKER) (test code = [facility], 1538) 90554: Repairer Maintenance Building/Techni estefani ID = [id number] for GUNNER PANDYA SARS-COV2/RT-PCR ([facility])2020-09-28 11:54:00 Test Item Value Reference Range Interpretation Comments SARS-COV2/RT-PCR Negative Negative The SARS-Co V-2 target (test code = 3607853) nuclei c acids are not detected in [...] of the Act.Fact Sheet for Healthcare Providers :https://www.Medio/Documents/Xpert%20Xpress%20SARS%20CoV-2/Fact%20Sheets/3 3902%55ACKH-AHA-9%20HEALTHCARE%20PROVIDERS%20FACT%20SHEET.pdfFact Sheet for Healthcare Patients:https://www.Medio /Documents/Xpert%20Xpress%20SARS%20Cov-2/Fact%20Sheets/3023801%12MOZV-MEX-2%20P ATIENT%20FACT%20SHEET.pdfBASPRING VIEW [facility] METABOLIC [id number] 11:14:00 Test Item Value Reference Range Interpretation [...] S NOT APPLICABLE FOR DIALYSIS PATIEN TS. Repairer Maintenance Building ID - [id number] (HEMOGRAM ONLY)2020-09-28 09:37:00 Test [...] 0-0 (BEAKER) (test code = 413) POCT-GLUCOSE [id number] 16:33:00 Test Item Value Reference Range Interpretation Comments POC-GLUCOSE METER 98 mg/dL 70-110 : TESTED A T [facility] 6720 (BEAKER) (test code = [facility], 1538) 37480: Repairer Maintenance Building/Techni estefani ID = [id number] for JAD MICHAEL POCT-GLUCOSE [id number] 12:28:00 Test Item Value Reference Range Interpretation Comments POC-GLUCOSE METER 88 mg/dL 70-110 : TESTED A T [facility] 6720 (BEAKER) (test code = [facility], 1538) 14309: Repairer Maintenance Building/Techni estefani ID = [id number] for JAD MICHAEL SURGICALLY OBTAINED CULTURE + GRAM [id number] 08:40:00 Test Item Value Reference Interpretation Comments [...] + See_Comment R [Automated Tazobactam (test message] Th e system code = 29) which generated [...] gram positive (BEAKER) (test code rods = 116475) GRAM STAIN RESULT <1+ gram positive (BEAKER) (test code cocci in clusters = 588777) POCT-GLUCOSE [id number] 07:34:00 Test Item Value Reference Range Interpretation Comments POC-GLUCOSE METER 89 mg/dL 70-110 : TESTED A T [facility] 6720 (BEAKER) (test code = DASIA Garcia [facility], 1538) 47897: Repairer Maintenance Building/Techni estefani ID = [id number] for JAD MICHAEL CBC (HEMOGRAM ONLY)2020-09-27 06:32:00 [...] 0-0 (BEAKER) (test code = 413) POCT-GLUCOSE [id number] 22:02:00 Test Item Value Reference Range Interpretation Comments POC-GLUCOSE METER 156 mg/dL 70-110 H : TESTED A T [facility] 6720 (BEAKER) (test code = [facility], 1538) 64148: Repairer Maintenance Building/Techni estefani ID = [id number] for Sully Rivera POCT-GLUCOSE [id number] 12:02:00 Test Item Value Reference Range Interpretation Comments POC-GLUCOSE METER 116 mg/dL 70-110 H : TESTED A T [facility] 6720 (BEAKER) (test code = [facility], 1538) 21582: Repairer Maintenance Building/Techni estefani ID = [id number] for TRE CRAWFORD GUNNER POCT-GLUCOSE [id number] 08:31:00 Test Item Value Reference Range Interpretation Comments POC-GLUCOSE METER 93 mg/dL 70-110 : TESTED A T [facility] 6720 (BEAKER) (test code = [facility], 1538) 65888: Repairer Maintenance Building/Techni estefani ID = [id number] for FAKATHI Le GUNNER ANAEROBIC [id number] 07:58:00 Test Item Value Reference Range Interpretation Comments CULTURE (BEAKER) (test No anaerobes isolated code = 1095) ANAEROBIC [id number] 07:46:00 Test Item Value Reference Range Interpretation [...] 0-0 (BEAKER) (test code = 413) POCT-GLUCOSE [id number] 22:24:00 Test Item Value Reference Range Interpretation Comments POC-GLUCOSE METER 129 mg/dL 70-110 H : TESTED A T [facility] 6720 (BEAKER) (test code = [facility], 153) 91996: Repairer Maintenance Building/Techni estefani ID = [id number] for TEJINDER MORALES POCT-GLUCOSE [id number] 17:39:00 Test Item Value Reference Range Interpretation Comments POC-GLUCOSE METER 106 mg/dL 70-110 : TESTED A T [facility] 6720 (BEAKER) (test code = [facility], 1538) 35147: Repairer Maintenance Building/Techni estefani ID = [id number] for SA NTOS, JACOB HEMOGLOBIN AND [id number] 15:48:00 Test Item Value Reference Range Interpretation Comments HEMOGLOBIN (BEAKER) (test code = 6.1 GM/DL 13.7-17.5 L 410) HEMATOCRIT (BEAKER) (test code = 20.6 % 40.1-51.0 L 411) Repairer Maintenance Building ID - [id number]-GLUCOSE [id number] 11:53:00 Test Item Value Reference Range Interpretation Comments POC-GLUCOSE METER 122 mg/dL 70-110 H : TESTED A T [facility] 6720 (BEAKER) (test code = [facility], 1538) 02317: Repairer Maintenance Building/Techni estefani ID = [id number] for JACOB LYLES POCT-GLUCOSE [id number] 08:02:00 Test Item Value Reference Range Interpretation Comments POC-GLUCOSE METER 105 mg/dL 70-110 : TESTED A T [facility] 6720 (BEAKER) (test code = [facility], 1538) 79716: Repairer Maintenance Building/Techni estefani ID = [id number] for JACOB LYLSE CBC (HEMOGRAM ONLY)2020-09-25 06:49:00 Test Item Value [...] 0-0 (BEAKER) (test code = 413) POCT-GLUCOSE [id number] 22:19:00 Test Item Value Reference Range Interpretation Comments POC-GLUCOSE METER 174 mg/dL 70-110 H : TESTED A T [facility] 6720 (BEAKER) (test code = [facility], 1538) 34267: Repairer Maintenance Building/Techni estefani ID = [id number] for Sully Rivera POCT-GLUCOSE [id number] 18:50:00 Test Item Value Reference Range Interpretation Comments POC-GLUCOSE METER 152 mg/dL 70-110 H : TESTED A T [facility] 6720 (BEAKER) (test code [facility], = 1538) 34710: Repairer Maintenance Building/Techni estefani ID = [id number] for Amaury Lucio POCT-GLUCOSE [id number] 11:55:00 Test Item Value Reference Range Interpretation Comments POC-GLUCOSE METER 169 mg/dL 70-110 H : TESTED A T [facility] 6720 (BEAKER) (test code = [facility], 1538) 40475: Repairer Maintenance Building/Techni estefani ID = [id number] for JACOB LYLES POCT-GLUCOSE [id number] 08:28:00 Test Item Value Reference Range Interpretation Comments POC-GLUCOSE METER 110 mg/dL 70-110 : TESTED A T [facility] 6720 (BEAKER) (test code = [facility], 1538) 06168: Repairer Maintenance Building/Techni estefani ID = [id number] for JACOB LYLES BASIC METABOLIC [id number] 07:01:00 Test Item Value Reference Range Interpretation [...] S NOT APPLICABLE FOR DIALYSIS PATIEN TS. Repairer Maintenance Building ID - BASSEM [id number] 06:35:00 Test Item Value Reference Range Interpretation Comments MAGNESIUM (BEAKER) (test code = 2.2 mg/dL 1.6-2.6 627) Repairer Maintenance Building ID - BASSEM [id number] 06:35:00 Test Item Value Reference Range Interpretation Comments PHOSPHORUS (BEAKER) (test code = 6.0 mg/dL 2.3-4.7 H 604) Repairer Maintenance Building ID Benjie LUEVANO WCBC (HEMOGRAM ONLY)2020-09-24 05:34:00 Test Item Value [...] 0-0 (BEAKER) (test code = 413) POCT-GLUCOSE [id number] 05:21:00 Test Item Value Reference Range Interpretation Comments POC-GLUCOSE METER 107 mg/dL 70-110 : TESTED A T [facility] 6720 (BEAKER) ([facility], = 1538) [address]99: Repairer Maintenance Building/Techni estefani ID = [id number] for NARCISO MACEDO POCT-GLUCOSE [id number] 20:32:00 Test Item Value Reference Range Interpretation Comments POC-GLUCOSE METER 133 mg/dL 70-110 H : TESTED A T [facility] 6720 (BEAKER) (test code = DASIA Garcia [facility], 1538) 62408: Repairer Maintenance Building/Techni estefani ID = [id number] for SJ HERBERT POCT-GLUCOSE [id number] 17:23:00 Test Item Value Reference Range Interpretation Comments POC-GLUCOSE METER 141 mg/dL 70-110 H : TESTED A T [facility] 6720 (BEAKER) (test code = D[facility] QUIS[facility] [place], 1538) 26274: Repairer Maintenance Building/Techni estefani ID = [id number] for GUNNER PANDYA SARS-COV2/RT-PCR ([facility] [facility])2020-09-23 16:45:00 Test Item Value Reference Range Interpretation Comments SARS-COV2/RT-PCR (test Negative Not Detected, Negative, code = 5053545) See external report for linked test SARS-COV-2 PERFORMING LAB [facility] (test code = 3328069) Negative result for this test determines that [...] 564(g) of the Act.Fact Sheet for Healthcare Providers:https://www.Memopal/sites/default/files/product/documents/Fact_Shee q_FZ_Icqtnufzx_Lqxk_RYBE-WmY-9.pdfFact Sheet for Healthcare Patients:https://www.Memopal/sites/default/files/product/ documents/Qori_Znapm_Ksrxxxxv_Hnzz_TWVQ-DeX-6.pdfPerforming Laboratory:[facility] [place] [address], [place] [address]UFRTJ CULTURE 2020-09-23 12:00:00 Test Item Value Reference Range Interpretation Comments CULTURE (BEAKER) (test No growth in 5 days code = 1095) POCT-GLUCOSE [id number] 08:40:00 Test Item Value Reference Range Interpretation Comments POC-GLUCOSE METER 82 mg/dL 70-110 : TESTED A T [facility] 6720 (BEAKER) (test code = DASIA Garcia [facility], 1538) 43304: Repairer Maintenance Building/Techni estefani ID = [id number] for GUNNER MUHAMMAD BASIC METABOLIC [id number] 06:29:00 Test Item Value Reference Range Interpretation [...] S NOT APPLICABLE FOR DIALYSIS PATIEN TS. Repairer Maintenance Building ID - JAQUELINE [id number] 06:27:00 Test Item Value Reference Range Interpretation Comments MAGNESIUM (BEAKER) (test code = 1.9 mg/dL 1.6-2.6 627) Repairer Maintenance Building ID - JAQUELINE [id number] 06:27:00 Test Item Value Reference Range Interpretation Comments PHOSPHORUS (BEAKER) (test code = 4.5 mg/dL 2.3-4.7 604) Repairer Maintenance Building ID - JAQUELINE [facility] (HEMOGRAM ONLY)2020-09-23 06:08:00 [...] 0-0 (BEAKER) (test code = 413) POCT-GLUCOSE [id number] 20:54:00 Test Item Value Reference Range Interpretation Comments POC-GLUCOSE METER 111 mg/dL 70-110 H : TESTED A T [facility] 6720 (BEAKER) (test code = DASIA Garcia [place], 1538) 58691: Repairer Maintenance Building/Techni estefani ID = [id number] for SJ HERBERT POCT-GLUCOSE [id number] 17:25:00 Test Item Value Reference Range Interpretation Comments POC-GLUCOSE METER 119 mg/dL 70-110 H : TESTED A T [facility] 6720 (BEAKER) (test code = DASIA Garcia [facility], 1538) 44877: Repairer Maintenance Building/Techni estefani ID = [id number] for GUNNER PANDYA BASIC METABOLIC [id number] 12:39:00 Test Item Value Reference Range Interpretation [...] S NOT APPLICABLE FOR DIALYSIS PATIEN TS. Repairer Maintenance Building ID Benjie HARDY [id number] 12:36:00 Test Item Value Reference Range Interpretation Comments MAGNESIUM (BEAKER) (test code = 2.0 mg/dL 1.6-2.6 627) Repairer Maintenance Building ID Benjie HARDY [id number] 12:36:00 Test Item Value Reference Range Interpretation Comments PHOSPHORUS (BEAKER) (test code = 5.8 mg/dL 2.3-4.7 H 604) Repairer Maintenance Building SAVANNA HARDY FPOCT-GLUCOSE [id number] 12:22:00 Test Item Value Reference Range Interpretation Comments POC-GLUCOSE METER 104 mg/dL 70-110 : TESTED A T [facility] 6720 (BEAKER) (test code = [facility], 153) 79855: Repairer Maintenance Building/Techni estefani ID = [id number] for FA TY GUNNER POCT-GLUCOSE [id number] 08:22:00 Test Item Value Reference Range Interpretation Comments POC-GLUCOSE METER 100 mg/dL 70-110 : TESTED A T [facility] 6720 (BEAKER) (test code = [facility], 1538) 33930: Repairer Maintenance Building/Techni estefani ID = [id number] for FA TY GUNNER POCT-GLUCOSE [id number] 21:12:00 Test Item Value Reference Range Interpretation Comments POC-GLUCOSE METER 133 mg/dL 70-110 H : TESTED A T [facility] 6720 (BEAKER) (test code = [facility], [facility]) 98717: Repairer Maintenance Building/Techni estefani ID = [id number] for ROSIO DUFF POCT-GLUCOSE [id number] 16:31:00 Test Item Value Reference Range Interpretation Comments POC-GLUCOSE METER 127 mg/dL 70-110 H : TESTED A T [facility] 6720 (BEAKER) (test code = [facility], 1538) 85989: Repairer Maintenance Building/Techni estefani ID = [id number] for Ronald Coffman POCT-GLUCOSE [id number] 12:56:00 Test Item Value Reference Range Interpretation Comments POC-GLUCOSE METER 99 mg/dL 70-110 : TESTED A T [facility] 6720 (BEAKER) (test code = [facility], 153) 18828: Repairer Maintenance Building/Techni estefani ID = [id number] for Ronald Brown BASIC METABOLIC [id number] 12:15:00 Test Item Value Reference Range Interpretation [...] S NOT APPLICABLE FOR DIALYSIS PATIEN TS. Repairer Maintenance Building ID - PIAYA LWOUND CULTURE + GRAM [id number] 08:12:00 Test Item Value Reference Range Interpretation Comments CULTURE (BEAKER) A 3+ Same org anism has (test code = been isolated f rom 1095) cultures(s) of the same body site and collection date . Repeat identifi cation and susceptibil ity testing perform ed only after consultat ion with the clinic ms microbiology laboratory.Refe r to previous cultur e ofEnterococcus faecalis GRAM STAIN <1+ WBCs RESULT (BEAKER) (test code = 1123) GRAM STAIN <1+ gram RESULT (BEAKER) negative rods (test code = 589947) GRAM STAIN 1+ gram positive RESULT (BEAKER) cocci in (test code = clusters 388710) WOUND CULTURE + GRAM [id number] 08:10:00 Test Item Value Reference Interpretation Comments [...] (BEAKER) (test code = cocci in pairs 316384) POCT-GLUCOSE [id number] 07:38:00 Test Item Value Reference Range Interpretation Comments POC-GLUCOSE METER 84 mg/dL 70-110 : TESTED A T [facility] 6720 (BEAKER) (test code = DASIA [place], 1538) 22859: Repairer Maintenance Building/Techni estefani ID = [id number] for Aminata ie, Ronald SPIN/CONCENTRATION [id number] 06:17:00 Test Item Value Reference Range Interpretation Comments CONCENTRATION CHARGED (BEAKER) (test Done code = 2657) POCT-GLUCOSE [id number] 21:46:00 Test Item Value Reference Range Interpretation Comments POC-GLUCOSE METER 122 mg/dL 70-110 H : TESTED A T [facility] 6720 (BEAKER) (test code = [facility], 1538) 15206: Repairer Maintenance Building/Techni estefani ID = [id number] for Tavo Garcia POCT-GLUCOSE [id number] 17:39:00 Test Item Value Reference Range Interpretation Comments POC-GLUCOSE METER 114 mg/dL 70-110 H : TESTED A T [facility] 6720 (BEAKER) (test code = [facility], 1538) 60521: Repairer Maintenance Building/Techni estefani ID = [id number] for DEMOND HODGE POCT-GLUCOSE [id number] 12:25:00 Test Item Value Reference Range Interpretation Comments POC-GLUCOSE METER 93 mg/dL 70-110 : TESTED A T [facility] 6720 (BEAKER) (test code = [facility], 1538) 07346: Repairer Maintenance Building/Techni estefani ID = [id number] for JAD MICHAEL POCT-GLUCOSE [id number] 11:36:00 Test Item Value Reference Range Interpretation Comments POC-GLUCOSE METER 95 mg/dL 70-110 : TESTED A T [facility] 6720 (BEAKER) (test code = [facility], 1538) 97659: Repairer Maintenance Building/Techni estefani ID = [id number] for JULIO STEWART BLOOD [id number] 06:44:00 Test Item Value Reference Range Interpretation [...] gram 1123) positive cocci in clusters BLOOD [id number] 06:43:00 Test Item Value Reference Interpretation Comments [...] 1123) gram positive cocci in clusters POCT-GLUCOSE [id number] 21:17:00 Test Item Value Reference Range Interpretation Comments POC-GLUCOSE METER 160 mg/dL 70-110 H : TESTED A T [facility] 6720 (BEAKER) (test code = [facility], 1538) 28187: Repairer Maintenance Building/Techni estefani ID = [id number] for Co Kathe nguyen POCT-GLUCOSE [id number] 12:08:00 Test Item Value Reference Range Interpretation Comments POC-GLUCOSE METER 100 mg/dL 70-110 : TESTED A T [facility] 6720 (BEAKER) (test code = [facility], 1538) 00927: Repairer Maintenance Building/Techni estefani ID = [id number] for SA MOISES JACOB CBC W/PLT COUNT & AUTO [id number] 08:20:00 Test Item Value Reference Range Interpretation [...] CONCENTRATION Adequate (CELLAVISION)(BEAKER) (test code = 3438) Repairer Maintenance Building ID - Lazara Bryant comments: Slide comments:POCT-GLUCOSE METER 2020-09-19 07:56:00 Test Item Value Reference Range Interpretation Comments POC-GLUCOSE METER 109 mg/dL 70-110 : TESTED A T [facility] 6720 (BEAKER) (test code = DASIA Garcia [place], 1538) 98264: Repairer Maintenance Building/Techni estefani ID = [id number] for JACOB LYLES BASIC METABOLIC [id number] 06:28:00 Test Item Value Reference Range Interpretation [...] S NOT APPLICABLE FOR DIALYSIS PATIEN TS. Repairer Maintenance Building ID - DANITZA [id number] 06:27:00 Test Item Value Reference Range Interpretation Comments MAGNESIUM (BEAKER) (test code = 3.0 mg/dL 1.6-2.6 H 627) Repairer Maintenance Building ID - DANITZA [id number] 06:27:00 Test Item Value Reference Range Interpretation Comments PHOSPHORUS (BEAKER) (test code = 5.4 mg/dL 2.3-4.7 H 604) Repairer Maintenance Building ID - PIAYA LPOCT-GLUCOSE [id number] 21:24:00 Test Item Value Reference Range Interpretation Comments POC-GLUCOSE METER 202 mg/dL 70-110 H : TESTED Vikas T [facility] 6720 (BEAKER) (test code = D[place], 1538) 26912: Repairer Maintenance Building/Techni estefani ID = [id number] for SJ HERBERT SARS-COV2/RT-PCR ([facility])2020-09-18 18:45:00 Test Item Value Reference Range Interpretation Comments SARS-COV2/RT-PCR (test Negative Not Detected, Negative, code = 4417032) See external report for linked test SARS-COV-2 PERFORMING LAB [facility] (test code = 3817297) Negative result for this test determines that [...] 564(g) of the Act.Fact Sheet for Healthcare Providers:https://www.Memopal/sites/default/files/product/documents/Fact_Sherohit velásquezo_FO_Vjkglltug_Nmaf_PGGD-TeP-3.pdfFact Sheet for Healthcare Patients:https://www.Memopal/sites/default/files/product/ documents/Ddpt_Nkjxq_Jacnhury_Fiaq_PEBU-FzR-6.pdfPerforming Laboratory:[facility], [place] [address]JOJR-VPECCSI METER 2020-09-18 17:18:00 Test Item Value Reference Range Interpretation Comments POC-GLUCOSE METER 101 mg/dL 70-110 : TESTED A T [facility] 6720 (BEAKER) (test code = [facility], 1538) 04569: Repairer Maintenance Building/Techni estefani ID = [id number] for GUNNER PANDYA POCT-GLUCOSE [id number] 12:20:00 Test Item Value Reference Range Interpretation Comments POC-GLUCOSE METER 117 mg/dL 70-110 H : TESTED A T [facility] 6720 (BEAKER) (test code = [facility] Jose [facility], 1538) 49598: Repairer Maintenance Building/Techni estefani ID = [id number] for GUNNER PANDYA BASIC METABOLIC [id number] 08:24:00 Test Item Value Reference Range Interpretation [...] S NOT APPLICABLE FOR DIALYSIS PATIEN TS. Repairer Maintenance Building ID - DANITZA LOperator ID - ADMINPOCT-GLUCOSE [id number] 08:19:00 Test Item Value Reference Range Interpretation Comments POC-GLUCOSE METER 103 mg/dL 70-110 : TESTED A T [facility] 6720 (BEAKER) (test code = DAS[place], 1538) 23289: Repairer Maintenance Building/Techni estefani ID = [id number] for GUNNER PANDYA [id number] 07:33:00 Test Item Value Reference Range Interpretation Comments MAGNESIUM (BEAKER) 2.9 mg/dL 1.6-2.6 H Specimen slightly (test code = 627) hemolyzed Repairer Maintenance Building ID - DANITZA [id number] 07:33:00 Test Item Value Reference Range Interpretation Comments PHOSPHORUS (BEAKER) 3.6 mg/dL 2.3-4.7 Specimen slightly (test code = 604) hemolyzed Repairer Maintenance Building ID - DANITZA LCBC W/PLT COUNT & AUTO [id number] 04:53:00 Test Item Value Reference Range Interpretation [...] PERCENT (BEAKER) (test code = 2801) POCT-GLUCOSE [id number] 21:15:00 Test Item Value Reference Range Interpretation Comments POC-GLUCOSE METER 115 mg/dL 70-110 H : TESTED A T [facility] 6720 (BEAKER) (test code = DASIA Garcia [facility], 1538) 50472: Repairer Maintenance Building/Techni estefani ID = [id number] for SJ HERBERT BLOOD CULTURE IDENTIFICATION [id number] 21:10:00 Test Item Value Reference Interpretation Comments Range LISTERIA MONOCYTOGENES Not Not detected (test code = 20151208) detected STAPHYLOCOCCUS (test Detected Not detected A code = 0151346) STAPHYLOCOCCUS AUREUS Detected Not detected A Methic illin-susceptible (test code = 7375505) S. aur eus (MSSA)First-francesco e therapy: Cefazolin or Ox acillin (Oxacillin pref erred if BIOCHEMICAL DEVELOPMENT ENGINEER involvement ) ID CONSULTATION REQUIREDStaphyl ococcus aureus DETECTED MecA NOT DETECTED Refere nce Range: Not Detected STREPTOCOCCUS (test Not Not detected code = 9812166) detected STREPTOCOCCUS Not Not detected AGALACTIAE (GROUP B) detected (test code = 9346152) STREPTOCOCCUS Not Not detected PNEUMONIAE (test code detected = 9470430) STREPTOCOCCUS PYOGENES Not Not detected (GROUP A) (test code = detected 6101945) ACINETOBACTER Not Not detected BAUMANNII (test code = detected 5705017) HAEMOPHILUS INFLUENZAE Not Not detected (test code = 3229036) detected NEISSERIA MENINGITIDIS Not Not detected (test code = 9330572) detected ENTEROBACTERIACEAE Not Not detected (test code = 9039202) detected ENTEROBACTER CLOACOE Not Not detected COMPLEX (test code = detected 1722404) KLEBSIELLA OXYTOCA Not Not detected (test code = 3118716) detected KLEBSIELLA PNEUMONIAE Not Not detected (test code = 1650) detected PROTEUS (test code = Not Not detected 9110345) detected SERRATIA MARCESCENS Not Not detected (test code = 4313929) detected CAMI ALBICANS (test Not Not detected code = 1270919) detected CAMI GLABRATA (test Not Not detected code = 0084254) detected CAMI KRUSEI (test Not Not detected code = 3904192) detected CAMI PARAPSILOSIS Not Not detected (test code = 1667153) detected CAMI TROPICALIS Not Not detected (test code = 5039776) detected ESCHERICHIA COLI (test Not Not detected code = 5774364) detected METHICILLIN-RESISTANCE Not Not detected Note: Antimicrobial GENE (test code = detected resistance can occur via ) multiple mechan isms. A Not Detected re sult for the [facility] antimicrobial r esistance gene assays lance s not indicate antimi crobial susceptibility. Subculturing is required for species identification and susceptibility testing of isolates. VANCOMYCIN-RESISTANCE GENE (test code = 2294861) CARBAPENEM-RESISTANCE GENE (test code = 8480130) ENTEROCOCCUS-BEAKER Not Not detected (test code = 2786110) detected PSEUDOMONAS Not Not detected AERUGINOSA-BEAKER detected (test code = 2378431) Other bacteria and resistance markers not targeted by this PCR panel cannot be excluded; therefore clinical correlation and follow up of serology, culture results, and other molecular studies is required. The results are not intended to be used as the sole means for clinical diagnosis or patient management decisions. This sample was tested at the [facility] using the [email or web address] Blood Culture ID Panel. It is FDA cleared and has been verified and approved by the [facility] for clinical use. This laboratory is CLIA-certified and College ofAmerican Pathologists (CAP)-accredited to perform high complexity testing.HEPATITIS B SURFACE [id number] 18:09:00 Test Item Value Reference Range Interpretation Comments HEPATITIS B SURFACE ANTIGEN (2) Nonreactive Nonreactive (BEAKER) (test code = 2585) Specimen is considered negative for HBsAg.POCT-GLUCOSE [id number] 17:13:00 Test Item Value Reference Range Interpretation Comments POC-GLUCOSE METER 127 mg/dL 70-110 H : TESTED A T [facility] 6720 (BEAKER) (test code = [facility], 1538) 03334: Repairer Maintenance Building/Techni estefani ID = [id number] for GUNNER PANDYA POCT-GLUCOSE [id number] 12:12:00 Test Item Value Reference Range Interpretation Comments POC-GLUCOSE METER 99 mg/dL 70-110 : TESTED A T [facility] 6720 (BEAKER) (test code = [facility], 1538) 33298: Repairer Maintenance Building/Techni estefani ID = [id number] for FAGUNNER MCNALLY CBC W/PLT COUNT & AUTO [id number] 08:34:00 Test Item Value Reference Range Interpretation [...] CONCENTRATION Adequate (CELLAVISION)(BEAKER) (test code = 3438) Repairer Maintenance Building ID - Lazara Bryant comments: Slide comments:[id number] 05:34:00 Test Item Value Reference Range Interpretation Comments MAGNESIUM (BEAKER) 2.8 mg/dL 1.6-2.6 H Specimen slightly (test code = 627) hemolyzed Repairer Maintenance Building ID - JAQUELINE [id number] 05:34:00 Test Item Value Reference Range Interpretation Comments PHOSPHORUS (BEAKER) 4.0 mg/dL 2.3-4.7 Specimen slightly (test code = 604) hemolyzed Repairer Maintenance Building ID - JAQUELINE MBASIC METABOLIC [id number] 05:34:00 Test Item Value Reference Range Interpretation [...] S NOT APPLICABLE FOR DIALYSIS PATIEN TS. Repairer Maintenance Building ID - JAQUELINE MRAD, FOOT, MIN 3 VIEWS, [id number] 20:44:00Reason for exam:->[facility] : 1960 Sex: [...] MDReport Verified Date/Time: 09/16/2020 20:44:14 Reading Location: [facility] C013W Consult Reading Room (CELLAVISION MANUAL DIFF)2020-09-16 20:24:00 [...] (CELLAVISION)(BEAKER) 0.14 K/uL 0.00-0.80 (test code = 2840) ATYPICAL LYMPHOCYTES - ABS 0.28 K/uL 0.00-0.00 H (CELLAVISION)(BEAKER) (test code = 9308) TOTAL COUNTED (BEAKER) (test code = 100 1351) PLT MORPHOLOGY (BEAKER) (test code Normal = 486) HYPERSEGMENTATION Present (CELLAVISION)(BEAKER) (test code = 3445) POIKILOCYTES (BEAKER) (test code = 1+ few 966) ELLIPTOCYTES (BEAKER) (test code = 1+ few 962) ARTIFACT (CELLAVISION)(BEAKER) Present (test code = 3432) PLATELET CONCENTRATION Adequate (CELLAVISION)(BEAKER) (test code = 3438) Repairer Maintenance Building ID - Maggie comments: Slide comments:C-REACTIVE PROTEIN 2020-09-16 19:59:00 Test Item Value Reference Range Interpretation Comments C-REACTIVE PROTEIN (BEAKER) (test 10.23 mg/dL 0.00-0.50 H code = 676) Repairer Maintenance Building ID - BSBASIC METABOLIC [id number] 19:59:00 Test Item Value Reference Range Interpretation [...] S NOT APPLICABLE FOR DIALYSIS PATIEN TS. Repairer Maintenance Building ID - [id number] 19:56:00 Test Item Value Reference Range Interpretation [...] exclusion of thrombosis is within 95-100% range. [id number] 19:54:00 Test Item Value Reference Range Interpretation [...] for patients with mechanical heart valves.LACTIC ACID, [id number] 19:54:00 Test Item Value Reference Range Interpretation Comments LACTATE BLOOD VENOUS (2) (BEAKER) 1.16 mmol/L 0.50-2.20 (test code = 2872) Repairer Maintenance Building ID - BSCBC W/PLT COUNT & AUTO [id number] 19:45:00 Test Item Value Reference Range Interpretation [...] (test code = 994) seen BASIC METABOLIC [id number] 11:06:00 Test Item Value Reference Range Interpretation [...] S NOT APPLICABLE FOR DIALYSIS PATIEN TS. Repairer Maintenance Building ID - EMERSONCBC (HEMOGRAM ONLY)2020-06-19 06:37:00 Test [...] 0-0 (BEAKER) (test code = 413) SARS-COV2/RT-PCR ([facility])2020-06-16 13:14:00 Test Item Value Reference Range Interpretation Comments SARS-COV2/RT-PCR (test Negative Not Detected, Negative, code = 3315802) See external report for linked test SARS-COV-2 PERFORMING LAB [facility] (test code = 6057856) Negative result for this test determines that [...] 564(g) of the Act.Fact Sheet for Healthcare Providers:https://www.Memopal/sites/default/files/product/documents/Fact_Shee i_FA_Alcnheeoj_Ivzl_LQTT-XrJ-4.pdfFact Sheet for Healthcare Patients:https://www.Memopal/sites/default/files/product/ documents/Lllu_Ffuwr_Dvxwpszt_Ecvp_OZKU-PyP-1.pdfPerforming Laboratory:[address], [place] [id number] 06:05:00 Test Item Value Reference Range Interpretation Comments PHOSPHORUS (BEAKER) (test code = 4.4 mg/dL 2.3-4.7 604) Repairer Maintenance Building ID - JAQUELINE MPOCT-GLUCOSE [id number] 21:46:00 Test Item Value Reference Range Interpretation Comments POC-GLUCOSE METER 124 mg/dL 70-110 H : TESTED A T [facility] 6720 (BEAKER) (test code = [facility], 153) 79173: Repairer Maintenance Building/Techni estefani ID = [id number] for Se rrano, Zoraida POCT-GLUCOSE [id number] 16:20:00 Test Item Value Reference Range Interpretation Comments POC-GLUCOSE METER 125 mg/dL 70-110 H : TESTED A T [facility] 6720 (BEAKER) (test code = [facility], 1538) 14198: Repairer Maintenance Building/Techni estefani ID = [id number] for Wi lliams, Areiona POCT-GLUCOSE [id number] 14:24:00 Test Item Value Reference Range Interpretation Comments POC-GLUCOSE METER 77 mg/dL 70-110 : TESTED A T [facility] 6720 (BEAKER) (test code = [facility], 1538) 82394: Repairer Maintenance Building/Techni estefani ID = [id number] for Phil Swanson BASIC METABOLIC [id number] 08:54:00 Test Item Value Reference Range Interpretation [...] S NOT APPLICABLE FOR DIALYSIS PATIEN TS. Repairer Maintenance Building ID - EDASICBC W/PLT COUNT & AUTO [id number] 08:49:00 Test Item Value Reference Range Interpretation [...] PERCENT (BEAKER) (test code = 2801) POCT-GLUCOSE [id number] 07:58:00 Test Item Value Reference Range Interpretation Comments POC-GLUCOSE METER 75 mg/dL 70-110 : [facility] (test code = D[place], 1538) 22789: Repairer Maintenance Building/Techni estefani ID = [id number] for Will iams, Areiona FUNGUS CULTURE + [id number] 01:12:00 Test Item Value Reference Range Interpretation Comments CULTURE (BEAKER) A <1+ Cami (test code = jefefrson i 1095) FUNGUS SMEAR No fungi seen (BEAKER) (test code = 1406) POCT-GLUCOSE [id number] 21:05:00 Test Item Value Reference Range Interpretation Comments POC-GLUCOSE METER 113 mg/dL 70-110 H : TESTED A T [facility] 6720 (BEAKER) (test code = [facility], [facility]) 75302: Repairer Maintenance Building/Techni estefani ID = [id number] for RON GODWIN POCT-GLUCOSE [id number] 17:14:00 Test Item Value Reference Range Interpretation Comments POC-GLUCOSE METER 104 mg/dL 70-110 : TESTED A T [facility] 6720 (BEAKER) (test code = [facility], [facility]) 41917: Repairer Maintenance Building/Techni estefani ID = [id number] for LEW VAZQUEZ, POCT-GLUCOSE [id number] 11:30:00 Test Item Value Reference Range Interpretation Comments POC-GLUCOSE METER 112 mg/dL 70-110 H : TESTED A T [facility] 6720 (BEAKER) (test code = [facility], [facility]) 41844: Repairer Maintenance Building/Techni estefani ID = [id number] for LEW VAZQUEZ, NE POCT-GLUCOSE [id number] 09:11:00 Test Item Value Reference Range Interpretation Comments POC-GLUCOSE METER 128 mg/dL 70-110 H : TESTED A T [facility] 6720 (BEAKER) (test code = [facility], [facility]) 04456: Repairer Maintenance Building/Techni estefani ID = [id number] for LEW VAZQUEZ, POCT-GLUCOSE [id number] 21:56:00 Test Item Value Reference Range Interpretation Comments POC-GLUCOSE METER 120 mg/dL 70-110 H : TESTED A T [facility] 6720 (BEAKER) (test code = [facility]) 16340: Repairer Maintenance Building/Techni estefani ID = [id number] for Zoraida Handley POCT-GLUCOSE [id number] 11:53:00 Test Item Value Reference Range Interpretation Comments POC-GLUCOSE METER 102 mg/dL 70-110 : TESTED A T [facility] 6720 (BEAKER) (test code = [facility]) 41374: Repairer Maintenance Building/Techni estefani ID = [id number] for Wi lliams, Areiona POCT-GLUCOSE [id number] 08:16:00 Test Item Value Reference Range Interpretation Comments POC-GLUCOSE METER 85 mg/dL 70-110 : TESTED A T [facility] 6720 (BEAKER) (test code = [place], 1538) 40129: Repairer Maintenance Building/Techni estefani ID = [id number] for Phil Swanson [id number] 04:45:00 Test Item Value Reference Range Interpretation Comments PHOSPHORUS (BEAKER) (test code = 5.3 mg/dL 2.3-4.7 H 604) Repairer Maintenance Building ID - BSCBC W/PLT COUNT & AUTO [id number] 04:10:00 Test Item Value Reference Range Interpretation [...] PERCENT (BEAKER) (test code = 2801) POCT-GLUCOSE [id number] 21:00:00 Test Item Value Reference Range Interpretation Comments POC-GLUCOSE METER 145 mg/dL 70-110 H : TESTED A T [facility] 6720 (BEAKER) (test code = [facility], 153) 33989: Repairer Maintenance Building/Techni estefani ID = [id number] for WI LLIAMSREJI [id number] 17:48:00 Test Item Value Reference Range Interpretation Comments PHOSPHORUS (BEAKER) (test code = 4.9 mg/dL 2.3-4.7 H 604) Repairer Maintenance Building ID - BSPOCT-GLUCOSE [id number] 15:50:00 Test Item Value Reference Range Interpretation Comments POC-GLUCOSE METER 116 mg/dL 70-110 H : TESTED A T [facility] 6720 (BEAKER) (test code = [facility], [facility]8) 66261: Repairer Maintenance Building/Techni estefani ID = [id number] for Wi lliams, Areiona POCT-GLUCOSE [id number] 12:42:00 Test Item Value Reference Range Interpretation Comments POC-GLUCOSE METER 86 mg/dL 70-110 : TESTED A T [facility] 6720 (BEAKER) (test code = [facility], 1538) 31317: Repairer Maintenance Building/Techni estefani ID = [id number] for Will iams, Areiona POCT-GLUCOSE [id number] 08:21:00 Test Item Value Reference Range Interpretation Comments POC-GLUCOSE METER 108 mg/dL 70-110 : TESTED A T [facility] 6720 (BEAKER) (test code = [facility], 1538) 89711: Repairer Maintenance Building/Techni estefani ID = [id number] for Phil Montoya POCT-GLUCOSE [id number] 22:07:00 Test Item Value Reference Range Interpretation Comments POC-GLUCOSE METER 118 mg/dL 70-110 H : TESTED A T [facility] 6720 (BEAKER) (test code = [facility], [facility]) 36834: Repairer Maintenance Building/Techni estefani ID = [id number] for Zoraida Handley POCT-GLUCOSE [id number] 12:30:00 Test Item Value Reference Range Interpretation Comments POC-GLUCOSE METER 93 mg/dL 70-110 : Notified RN/MD: TESTED ([facility]) (test code = AT [facility] [address] [place] [address]) [facility], [facility] 30: Repairer Maintenance Building/Techni estefani ID = [id number] for KELSI , COSHA POCT-GLUCOSE [id number] 07:55:00 Test Item Value Reference Range Interpretation Comments POC-GLUCOSE METER 81 mg/dL 70-110 : Notified RN/MD: TESTED ([facility]) (test code = AT [facility] [address] [place] [address]) [facility], [facility] 30: Repairer Maintenance Building/Techni estefani ID = [id number] for KELSI , COSHA POCT-GLUCOSE [id number] 22:01:00 Test Item Value Reference Range Interpretation Comments POC-GLUCOSE METER 104 mg/dL 70-110 : TESTED A T [facility] 6720 (BEAKER) (test code = [facility], [facility]) 37723: Repairer Maintenance Building/Techni estefani ID = [id number] for MALGORZATA MORRISON (V)JOHNON POCT-GLUCOSE [id number] 15:55:00 Test Item Value Reference Range Interpretation Comments POC-GLUCOSE METER 95 mg/dL 70-110 : TESTED A T [facility] 6720 (BEAKER) (test code = [facility], [facility]8) 96390: Repairer Maintenance Building/Techni estefani ID = [id number] for David s, Betzy POCT-GLUCOSE [id number] 11:37:00 Test Item Value Reference Range Interpretation Comments POC-GLUCOSE METER 82 mg/dL 70-110 : TESTED A T [facility] 6720 (BEAKER) (test code = [facility], [facility]8) 90733: Repairer Maintenance Building/Techni estefani ID = [id number] for David s, Betzy POCT-GLUCOSE [id number] 07:28:00 Test Item Value Reference Range Interpretation Comments POC-GLUCOSE METER 75 mg/dL 70-110 : TESTED A T [facility] 6720 (BEAKER) (test code = [facility], 1538) 88784: Repairer Maintenance Building/Techni estefani ID = [id number] for David s, Betzy POCT-GLUCOSE [id number] 22:59:00 Test Item Value Reference Range Interpretation Comments POC-GLUCOSE METER 104 mg/dL 70-110 : TESTED A T [facility] 6720 (BEAKER) (test code = [facility], 1538) 70996: Repairer Maintenance Building/Techni estefani ID = [id number] for TUYET BORJA POCT-GLUCOSE [id number] 16:15:00 Test Item Value Reference Range Interpretation Comments POC-GLUCOSE METER 121 mg/dL 70-110 H : TESTED A T [facility] 6720 (BEAKER) (test code = [facility], [facility]8) 60060: Repairer Maintenance Building/Techni estefani ID = [id number] for Da vis, Betzy POCT-GLUCOSE [id number] 11:53:00 Test Item Value Reference Range Interpretation Comments POC-GLUCOSE METER 110 mg/dL 70-110 : TESTED A T [facility] 6720 (BEAKER) (test code = [facility], 1538) 58672: Repairer Maintenance Building/Techni estefani ID = [id number] for Da vis, Betzy POCT-GLUCOSE [id number] 07:58:00 Test Item Value Reference Range Interpretation Comments POC-GLUCOSE METER 72 mg/dL 70-110 : TESTED A T [facility] 6720 (BEAKER) (test code = [facility], 1538) 79066: Repairer Maintenance Building/Techni estefani ID = [id number] for David s, Betzy BASIC METABOLIC [id number] 05:59:00 Test Item Value Reference Range Interpretation [...] S NOT APPLICABLE FOR DIALYSIS PATIEN TS. Repairer Maintenance Building ID - EDASICBC W/PLT COUNT & AUTO [id number] 05:30:00 Test Item Value Reference Range Interpretation [...] PERCENT (BEAKER) (test code = 2801) POCT-GLUCOSE [id number] 22:53:00 Test Item Value Reference Range Interpretation Comments POC-GLUCOSE METER 90 mg/dL 70-110 : TESTED A T [facility] 6720 (BEAKER) (test code = [facility], 153) 99650: Repairer Maintenance Building/Techni estefani ID = [id number] for WILL IAMS, REJI POCT-GLUCOSE [id number] 15:59:00 Test Item Value Reference Range Interpretation Comments POC-GLUCOSE METER 109 mg/dL 70-110 : TESTED A T [facility] 6720 (BEAKER) (test code = [facility], 153) 54438: Repairer Maintenance Building/Techni estefani ID = [id number] for Da vis, Betzy POCT-GLUCOSE [id number] 21:40:00 Test Item Value Reference Range Interpretation Comments POC-GLUCOSE METER 110 mg/dL 70-110 : TESTED A T [facility] 6720 (BEAKER) (test code = [facility], 1538) 74296: Repairer Maintenance Building/Techni estefani ID = [id number] for [place] LLIAMS, REJI POCT-GLUCOSE [id number] 16:44:00 Test Item Value Reference Range Interpretation Comments POC-GLUCOSE METER 110 mg/dL 70-110 : TESTED A T [facility] 6720 (BEAKER) (test code [facility], = 1538) 39937: Repairer Maintenance Building/Techni estefani ID = [id number] for WILS ON, SHASTANIE POCT-GLUCOSE [id number] 11:45:00 Test Item Value Reference Range Interpretation Comments POC-GLUCOSE METER 88 mg/dL 70-110 : TESTED A T [facility] 6720 (BEAKER) (test code = [facility], 153) 04316: Repairer Maintenance Building/Techni estefani ID = [id number] for WILS ON, SHASTANIE POCT-GLUCOSE [id number] 08:02:00 Test Item Value Reference Range Interpretation Comments POC-GLUCOSE METER 88 mg/dL 70-110 : TESTED A T [facility] 6720 (BEAKER) (test code = [facility], 1538) 42956: Repairer Maintenance Building/Techni estefani ID = [id number] for VICKIE NKELLYMARLENI POCT-GLUCOSE [id number] 21:05:00 Test Item Value Reference Range Interpretation Comments POC-GLUCOSE METER 118 mg/dL 70-110 H : TESTED A T [facility] 6720 (BEAKER) (test code = [facility], [facility]) 02702: Repairer Maintenance Building/Techni estefani ID = [id number] for DA MADELIN, BEAU POCT-GLUCOSE [id number] 16:34:00 Test Item Value Reference Range Interpretation Comments POC-GLUCOSE METER 131 mg/dL 70-110 H : TESTED A T [facility] 6720 (BEAKER) (test code = [facility], [facility]) 09032: Repairer Maintenance Building/Techni estefani ID = [id number] for FE LDER, STEVE ANAEROBIC [id number] 11:42:00 Test Item Value Reference Range Interpretation Comments CULTURE (BEAKER) (test No anaerobes isolated code = 1095) POCT-GLUCOSE [id number] 21:38:00 Test Item Value Reference Range Interpretation Comments POC-GLUCOSE METER 111 mg/dL 70-110 H : TESTED A T [facility] 6720 (BEAKER) (test code = [facility], 153) 71061: Repairer Maintenance Building/Techni estefani ID = [id number] for DA MADELIN, BEAU POCT-GLUCOSE [id number] 17:39:00 Test Item Value Reference Range Interpretation Comments POC-GLUCOSE METER 106 mg/dL 70-110 : TESTED A T [facility] 6720 (BEAKER) (test code = [facility], 153) 61445: Repairer Maintenance Building/Techni estefani ID = [id number] for PA RKSYLVIA, NE POCT-GLUCOSE [id number] 11:36:00 Test Item Value Reference Range Interpretation Comments POC-GLUCOSE METER 109 mg/dL 70-110 : TESTED A T [facility] 6720 (BEAKER) (test code = [facility], 153) 76024: Repairer Maintenance Building/Techni estefani ID = [id number] for PA RKSYLVIA, NE POCT-GLUCOSE [id number] 08:59:00 Test Item Value Reference Range Interpretation Comments POC-GLUCOSE METER 75 mg/dL 70-110 : TESTED A T [facility] 6720 (BEAKER) (test code = [facility], 153) 75799: Repairer Maintenance Building/Techni estefani ID = [id number] for FAITH WARD, [facility] POCT-GLUCOSE [id number] 21:58:00 Test Item Value Reference Range Interpretation Comments POC-GLUCOSE METER 103 mg/dL 70-110 : TESTED A T [facility] 6720 (BEAKER) (test code = [facility], 153) 28198: Repairer Maintenance Building/Techni estefani ID = [id number] for Se harris, Zoraida POCT-GLUCOSE [id number] 17:38:00 Test Item Value Reference Range Interpretation Comments POC-GLUCOSE METER 107 mg/dL 70-110 : TESTED A T [facility] 6720 (BEAKER) (test code = [facility], 153) 66046: Repairer Maintenance Building/Techni estefani ID = [id number] for PA RKSYLVIA, NE POCT-GLUCOSE [id number] 12:56:00 Test Item Value Reference Range Interpretation Comments POC-GLUCOSE METER 125 mg/dL 70-110 H : TESTED A T [facility] 6720 (BEAKER) (test code = [facility], 153) 35148: Repairer Maintenance Building/Techni estefani ID = [id number] for PA GEORGE, [place] SARS-COV2/RT-PCR ([facility])2020-06-02 09:39:00 Test Item Value Reference Range Interpretation Comments SARS-COV2/RT-PCR (test Negative Not Detected, Negative, code = 7982221) See external report for linked test SARS-COV-2 PERFORMING LAB [facility] (test code = 3493944) Negative result for this test determines that [...] 564(g) of the Act.Fact Sheet for Healthcare Providers:https://www.EventTool.[facility]/sites/default/files/product/documents/Fact_Shee w_IQ_Kzzeuiejj_Wvzx_NCZM-ZbF-8.pdfFact Sheet for Healthcare Patients:https://www.Branchlyidel.com/sites/default/files/product/ documents/Sopz_Mrkjr_Gmrjmdpc_Raqt_ATRG-SyR-2.pdfPerforming Laboratory:[facility] [facility] [place], [place] [address]JPJG-CSWKWSJ METER 2020-06-02 08:48:00 Test Item Value Reference Range Interpretation Comments POC-GLUCOSE METER 124 mg/dL 70-110 H : TESTED A T [facility]20 (BEAKER) (test code = [facility] [place], 1538) 88065: Repairer Maintenance Building/Techni estefani ID = [id number] for LEW VAZQUEZ, [facility] BASIC METABOLIC [id number] 08:14:00 Test Item Value Reference Range Interpretation [...] S NOT APPLICABLE FOR DIALYSIS PATIEN TS. Repairer Maintenance Building ID - TIAGO [id number] 08:10:00 Test Item Value Reference Range Interpretation Comments PHOSPHORUS (BEAKER) (test code = 7.0 mg/dL 2.3-4.7 H 604) Repairer Maintenance Building ID - TIAGO CVITAMIN B12 AND [id number] 07:23:00 Test Item Value Reference Range Interpretation Comments VITAMIN B12 (BEAKER) 441 pg/mL 213-816 (test code = 774) FOLATE (BEAKER) 5.90 ng/mL See_Comment L [Automated message] (test code = 362) The system which generated this result transmitted ref erence range: >=7.00. The reference range was not used to interpr et this result as normal/abnormal . Repairer Maintenance Building ID - JAQUELINE WADE, TIBC, % SAT. (WITHOUT FERRITIN)2020-06-02 06:48:00 Test Item Value Reference Range Interpretation Comments IRON (BEAKER) (test code = 547) 29.0 ug/dL 40.0-160.0 L TOTAL IRON BINDING CAPACITY 166 ug/dL 250-450 L (BEAKER) (test code = 769) IRON % SATURATION (2) (BEAKER) 17 % 20-55 L (test code = 2590) Repairer Maintenance Building ID - JAQUELINE MCBC (HEMOGRAM ONLY)2020-06-02 06:37:00 [...] 0-0 (BEAKER) (test code = 413) POCT-GLUCOSE [id number] 21:28:00 Test Item Value Reference Range Interpretation Comments POC-GLUCOSE METER 117 mg/dL 70-110 H : TESTED A T [facility] [address]20 (BEAKER) (test code = [facility] [place], 1538) 71099: Repairer Maintenance Building/Techni estefani ID = [id number] for REJI MONTOYA POCT-GLUCOSE [id number] 17:07:00 Test Item Value Reference Range Interpretation Comments POC-GLUCOSE METER 107 mg/dL 70-110 : [facility] (test code = [facility], 1538) 84840: Repairer Maintenance Building/Techni estefani ID = [id number] for Kingsley Haley [id number] 16:04:00 Test Item Value Reference Range Interpretation Comments FERRITIN (BEAKER) (test code = 322.82 ng/mL 5.00-275.00 H 361) Repairer Maintenance Building ID - DBSURGICALLY OBTAINED CULTURE + GRAM [id number] 12:53:00 Test Item Value Reference Interpretation Comments [...] gram negative (BEAKER) (test code = rods 987732) GRAM STAIN RESULT <1+ yeast (BEAKER) (test code = 276922) POCT-GLUCOSE [id number] 11:55:00 Test Item Value Reference Range Interpretation Comments POC-GLUCOSE METER 125 mg/dL 70-110 H : TESTED A T [facility] 6720 (BEAKER) (test code = [employer] [facility], 1538) 56232: Repairer Maintenance Building/Techni estefani ID = [id number] for Kingsley Haley POCT-GLUCOSE [id number] 08:56:00 Test Item Value Reference Range Interpretation Comments POC-GLUCOSE METER 85 mg/dL 70-110 : TESTED A T [facility] 6720 (BEAKER) (test code = [employer] [facility], 1538) 81731: Repairer Maintenance Building/Techni estefani ID = [id number] for Kingsley Lagunas POCT-GLUCOSE [id number] 22:47:00 Test Item Value Reference Range Interpretation Comments POC-GLUCOSE METER 119 mg/dL 70-110 H : TESTED A T [facility] 6720 (BEAKER) (test code = [facility], 153) 60167: Repairer Maintenance Building/Techni estefani ID = [id number] for REJI MONTOYA POCT-GLUCOSE [id number] 16:45:00 Test Item Value Reference Range Interpretation Comments POC-GLUCOSE METER 123 mg/dL 70-110 H : TESTED A T [facility] 6720 (BEAKER) (test code = [facility], 1538) 54795: Repairer Maintenance Building/Techni estefani ID = [id number] for LEW VAZQUEZ NE POCT-GLUCOSE [id number] 11:29:00 Test Item Value Reference Range Interpretation Comments POC-GLUCOSE METER 129 mg/dL 70-110 H : TESTED A T [facility] 6720 (BEAKER) (test code = [facility], 153) 70323: Repairer Maintenance Building/Techni estefani ID = [id number] for LEW VAZQUEZ NE POCT-GLUCOSE [id number] 08:48:00 Test Item Value Reference Range Interpretation Comments POC-GLUCOSE METER 98 mg/dL 70-110 : TESTED A T [facility] 6720 (BEAKER) (test code = [facility], 153) 27238: Repairer Maintenance Building/Techni estefani ID = [id number] for FAITH WARD [facility] BASIC METABOLIC [id number] 06:32:00 Test Item Value Reference Range Interpretation [...] S NOT APPLICABLE FOR DIALYSIS PATIEN TS. Repairer Maintenance Building ID - ADMINCBC (HEMOGRAM ONLY)2020-05-31 05:42:00 Test [...] 0-0 (BEAKER) (test code = 413) POCT-GLUCOSE [id number] 21:12:00 Test Item Value Reference Range Interpretation Comments POC-GLUCOSE METER 169 mg/dL 70-110 H : TESTED A T [facility] 6720 (BEAKER) (test code = [facility] [place], 1538) 56055: Repairer Maintenance Building/Techni estefani ID = [id number] for Zoraida Handley POCT-GLUCOSE [id number] 16:05:00 Test Item Value Reference Range Interpretation Comments POC-GLUCOSE METER 158 mg/dL 70-110 H : TESTED A T [facility] 6720 (BEAKER) (test code = [facility], 153) 34373: Repairer Maintenance Building/Techni estefani ID = [id number] for MELODY DOS SANTOS POCT-GLUCOSE [id number] 12:40:00 Test Item Value Reference Range Interpretation Comments POC-GLUCOSE METER 113 mg/dL 70-110 H : TESTED A T [facility] 6720 (BEAKER) (test code = [facility], 153) 65113: Repairer Maintenance Building/Techni estefani ID = [id number] for MELODY DOS SANTOS SPIN/CONCENTRATION [id number] 09:31:00 Test Item Value Reference Range Interpretation Comments CONCENTRATION CHARGED (BEAKER) (test Done code = 2657) POCT-GLUCOSE [id number] 08:07:00 Test Item Value Reference Range Interpretation Comments POC-GLUCOSE METER 116 mg/dL 70-110 H : TESTED A T [facility] 6720 (BEAKER) (test code = [facility], 153) 92685: Repairer Maintenance Building/Techni estefani ID = [id number] for MELODY DOS SANTOS POCT-GLUCOSE [id number] 21:03:00 Test Item Value Reference Range Interpretation Comments POC-GLUCOSE METER 194 mg/dL 70-110 H : TESTED A T [facility] 6720 (BEAKER) (test code = [facility], 153) 59702: Repairer Maintenance Building/Techni estefani ID = [id number] for REJI MONTOYA HEPATITIS B SURFACE [id number] 19:08:00 Test Item Value Reference Range Interpretation Comments HEPATITIS B SURFACE ANTIGEN (2) Nonreactive Nonreactive (BEAKER) (test code = 2585) Specimen is considered negative for HBsAg.POCT-GLUCOSE [id number] 17:02:00 Test Item Value Reference Range Interpretation Comments POC-GLUCOSE METER 142 mg/dL 70-110 H : TESTED A T [facility] 6720 (BEAKER) (test code = [facility], 153) 52869: Repairer Maintenance Building/Techni estefani ID = [id number] for EDSON MEJIA GLUCOSE-STAT [id number] 07:13:00 Test Item Value Reference Range Interpretation Comments GLUCOSE RANDOM (BEAKER) (test code 122 mg/dL 70-110 H = 652) HGB/HCT (H&H) - STAT [id number] 07:13:00 Test Item Value Reference Range Interpretation Comments HEMOGLOBIN (BEAKER) (test code = 10.0 GM/DL 13.0-16.8 L 410) HEMATOCRIT (BEAKER) (test code = 29.0 % 40.0-50.0 L 411) POTASSIUM-STAT [id number] 07:11:00 Test Item Value Reference Range Interpretation Comments POTASSIUM (BEAKER) (test code = 4.6 meq/L 3.6-5.5 379) POCT-GLUCOSE [id number] 06:01:00 Test Item Value Reference Range Interpretation Comments POC-GLUCOSE METER 118 mg/dL 70-110 H : TESTED A T [facility] 6720 (BEAKER) (test code [facility], = 1538) 44565: Repairer Maintenance Building/Techni estefani ID = [id number] for JORD AN, LACRYSTAL SARS-COV2/RT-PCR ([facility])2020-05-28 03:28:00 Test Item Value Reference Range Interpretation Comments SARS-COV2/RT-PCR (test Negative Not Detected, Negative, code = 8753139) See external report for linked test SARS-COV-2 PERFORMING LAB [facility] (test code = 4444283) Negative result for this test determines that [...] the Giles SARS-CoV-2 assay.Fact Sheet for Healthcare Providers:https://www.Digital Guardian.giles/ari/ CR_ARYA-RmO-2_VKQ_Obpu_Gozbp_24-492292.pdfFact Sheet for Healthcare Patients:https://www.Digital Guardian.Infinio radha/ari/PB_NEIV-KiT-7_Karabfp_Mdoz_Guddi_KO_78-826576Q2.pdfPerforming Laboratory:[address], [place] [address]SCP AND CREATININE [id number] 14:16:00 Test Item Value Reference Range Interpretation Comments BLOOD UREA NITROGEN 60 mg/dL 7-21 H (BEAKER) (test code = 354) CREATININE (BEAKER) 7.43 mg/dL 0.57-1.25 H (test code = 358) BUN/CREAT RATIO 8 For a normal (BEAKER) (test code individu al on a = 6896611677) normal diet, t he reference inter anthony for the mass ra chuck ranges between 12:1 and 20:1 (BUN i n mg/dL/creatinin e in mg/dL) EGFR (BEAKER) (test 8 mL/min/1.73 ESTIMAT ED GFR IS code = 1092) sq m NOT ACCURATE CREATININE CLEARANCE IN PREDICTING GLOMERULAR FILTRATION RATE . ESTIMATED GFR I S NOT APPLICABLE FOR DIALYSIS PATIEN TS. Repairer Maintenance Building ID - ANTONY [id number] 14:15:00 Test Item Value Reference Range Interpretation Comments SODIUM (BEAKER) (test code = 381) 136 meq/L 136-145 POTASSIUM (BEAKER) (test code = 4.0 meq/L 3.5-5.1 379) CHLORIDE (BEAKER) (test code = 382) 96 meq/L 98-107 L CO2 (BEAKER) (test code = 355) 25 meq/L 22-29 Repairer Maintenance Building ID - ANTONY [id number] 14:15:00 Test Item Value Reference Range Interpretation Comments GLUCOSE RANDOM (BEAKER) (test code 164 mg/dL 70-105 H = 652) Repairer Maintenance Building ID - ANTONY [id number] 14:01:00 Test Item Value Reference Range Interpretation [...] is 2.5-3.5 for patients with mechanical heart valves.[id number] 13:54:00 Test Item Value Reference Range Interpretation Comments HEMOGLOBIN (BEAKER) (test code = 10.3 GM/DL 13.7-17.5 L 410) Repairer Maintenance Building ID - [id number] CULTURE + SMEAR (NON-SPUTUM)2020-04-29 [...] code = 994) seen COVID 19 INHOUSE [id number] 18:00:00 Test Item Value Reference Range Interpretation Comments COVID 19 INHOUSE AG NEGATIVE Negative Per manu facturer, (test code = negative result s should [id number]) be treated aspr esumptive and, if inconsi [...] co nsistent with COVID-19. FUNGUS CULTURE + [id number] 00:50:00 Test Item Value Reference Range Interpretation Comments CULTURE (BEAKER) (test No fungus isolated in code = 1095) 28 days FUNGUS SMEAR (BEAKER) No fungi seen (test code = 1406) BASIC METABOLIC [id number] 16:48:00 Test Item Value Reference Range Interpretation [...] = CA) 8.4 MG/DL 8.5-10.1 L SARS-COV2/RT-PCR ([facility])2020-03-27 14:01:00 Test Item Value Reference Range Interpretation Comments SARS-COV2/RT-PCR (test Negative Not Detected, Negative, code = 0470811) See external report for linked test SARS-COV-2 PERFORMING LAB [facility] (test code = 3985759) Negative result for this test determines that [...] 564(g) of the Act.Fact Sheet for Healthcare Providers:https://www.EventTool.[facility]/sites/default/files/product/documents/Fact_Shee n_DW_Xklfbzpot_Wrlm_PMEH-PjK-0.pdfFact Sheet for Healthcare Patients:https://www.EventTool.[facility]/sites/default/files/product/ documents/Jicn_Wzjxf_Ntlngkzr_Xsmt_GRLA-EzI-7.pdfPerforming Laboratory:[facility], [place] [address]TVVLA CULTURE + GRAM [id number] 09:53:00 Test Item Value Reference Range Interpretation [...] No organisms seen (BEAKER) (test code = 605227) POCT-GLUCOSE [id number] 07:57:00 Test Item Value Reference Range Interpretation Comments POC-GLUCOSE METER 87 mg/dL 70-110 : TESTED A T [facility] 6720 (BEAKER) (test code = [facility], 153) 87851: Repairer Maintenance Building/Techni estefani ID = [id number] for Alix Jo HEMOGLOBIN AND [id number] 06:56:00 Test Item Value Reference Range Interpretation Comments HEMOGLOBIN (BEAKER) (test code = 8.7 GM/DL 13.7-17.5 L 410) HEMATOCRIT (BEAKER) (test code = 28.0 % 40.1-51.0 L 411) Repairer Maintenance Building ID - 6000POCT-GLUCOSE [id number] 00:03:00 Test Item Value Reference Range Interpretation Comments POC-GLUCOSE METER 144 mg/dL 70-110 H : TESTED A T [facility] 6720 (BEAKER) (test code = [facility], 1538) 78631: Repairer Maintenance Building/Techni estefani ID = [id number] for CRYSTAL RANGEL POCT-GLUCOSE [id number] 18:10:00 Test Item Value Reference Range Interpretation Comments POC-GLUCOSE METER 117 mg/dL 70-110 H : TESTED A T [facility]20 (BEAKER) (test code = [facility] [place], 1538) 83297: Repairer Maintenance Building/Techni estefani ID = [id number] for Avery Levy BASIC METABOLIC [id number] 16:25:00 Test Item Value Reference Range Interpretation [...] S NOT APPLICABLE FOR DIALYSIS PATIEN TS. Repairer Maintenance Building ID Benjie HARDY [id number] 16:08:00 Test Item Value Reference Range Interpretation Comments PHOSPHORUS (BEAKER) (test code = 4.1 mg/dL 2.3-4.7 604) Repairer Maintenance Building ID - ANTONY [facility]BC W/PLT COUNT & AUTO [id number] 15:56:00 Test Item Value Reference Range Interpretation [...] PERCENT (BEAKER) (test code = 2801) POCT-GLUCOSE [id number] 11:29:00 Test Item Value Reference Range Interpretation Comments POC-GLUCOSE METER 102 mg/dL 70-110 : TESTED Vikas Velásquez [facility] 6720 (BEAKER) (test code = DASIA ORR, 1538) 99229: Repairer Maintenance Building/Techni estefani ID = [id number] for JAD SALGUERO POCT-GLUCOSE [id number] 09:21:00 Test Item Value Reference Range Interpretation Comments POC-GLUCOSE METER 94 mg/dL 70-110 : TESTED A T [facility] 6720 (BEAKER) (test code = [facility], 153) [id number]: Repairer Maintenance Building/Techni estefani ID = [id number] for JAD MICHAEL POCT-GLUCOSE [id number] 08:43:00 Test Item Value Reference Range Interpretation Comments POC-GLUCOSE METER 68 mg/dL 70-110 L : TESTED A T [facility] 6720 (BEAKER) (test code = [facility], 1538) 51956: Repairer Maintenance Building/Techni estefani ID = [id number] for JAD MICHAEL FUNGUS CULTURE + [id number] 00:31:00 Test Item Value Reference Range Interpretation Comments CULTURE ([facility]) A 1+ Cami (test code = 1095) parapsilo sis FUNGUS SMEAR No fungi seen ([facility]) (test code = 1406) POCT-GLUCOSE [id number] 22:45:00 Test Item Value Reference Range Interpretation Comments POC-GLUCOSE METER 100 mg/dL 70-110 : TESTED A T [facility] 6720 (BEAKER) (test code = [facility], 153) 06011: Repairer Maintenance Building/Techni estefani ID = [id number] for TEJINDER MORALES POCT-GLUCOSE [id number] 21:50:00 Test Item Value Reference Range Interpretation Comments POC-GLUCOSE METER 121 mg/dL 70-110 H : TESTED A T [facility] 6720 (BEAKER) (test code = [facility], 153) 06223: Repairer Maintenance Building/Techni estefani ID = [id number] for Ba omid, Shruthi POCT-GLUCOSE [id number] 17:35:00 Test Item Value Reference Range Interpretation Comments POC-GLUCOSE METER 117 mg/dL 70-110 H : TESTED A T [facility] 6720 (BEAKER) (test code = [facility], 1538) 11890: Repairer Maintenance Building/Techni estefani ID = [id number] for AMADA MEDRANO POCT-GLUCOSE [id number] 11:29:00 Test Item Value Reference Range Interpretation Comments POC-GLUCOSE METER 92 mg/dL 70-110 : TESTED A T [facility] 6720 (BEAKER) (test code = [facility], [facility]) 32721: Repairer Maintenance Building/Techni estefani ID = [id number] for AMADA DUKES POCT-GLUCOSE [id number] 07:20:00 Test Item Value Reference Range Interpretation Comments POC-GLUCOSE METER 76 mg/dL 70-110 : TESTED A T [facility] 6720 (BEAKER) (test code = [facility], [facility]8) 94007: Repairer Maintenance Building/Techni estefani ID = [id number] for AMADA DUKES POCT-GLUCOSE [id number] 21:24:00 Test Item Value Reference Range Interpretation Comments POC-GLUCOSE METER 199 mg/dL 70-110 H : TESTED A T [facility] 6720 (BEAKER) (test code = [facility], [facility]8) 39771: Repairer Maintenance Building/Techni estefani ID = [id number] for TEJINDER MORALES POCT-GLUCOSE [id number] 18:07:00 Test Item Value Reference Range Interpretation Comments POC-GLUCOSE METER 135 mg/dL 70-110 H : TESTED A T [facility] 6720 (BEAKER) (test code = [facility], [facility]8) 45281: Repairer Maintenance Building/Techni estefani ID = [id number] for AMADA MEDRANO CBC W/PLT COUNT & AUTO [id number] 15:25:00 Test Item Value Reference Range Interpretation [...] PERCENT (BEAKER) (test code = 2801) POCT-GLUCOSE [id number] 11:52:00 Test Item Value Reference Range Interpretation Comments POC-GLUCOSE METER 91 mg/dL 70-110 : TESTED A T [facility] 6720 (BEAKER) (test code = [facility], 1538) 26552: Repairer Maintenance Building/Techni estefani ID = [id number] for AMADA DUKES POCT-GLUCOSE [id number] 07:39:00 Test Item Value Reference Range Interpretation Comments POC-GLUCOSE METER 92 mg/dL 70-110 : TESTED A T [facility] 6720 (BEAKER) (test code = [facility], 1538) 30248: Repairer Maintenance Building/Techni estefani ID = [id number] for AMADA DUKES BASIC METABOLIC [id number] 07:22:00 Test Item Value Reference Range Interpretation [...] S NOT APPLICABLE FOR DIALYSIS PATIEN TS. Repairer Maintenance Building ID - PIAYA LPOCT-GLUCOSE [id number] 21:35:00 Test Item Value Reference Range Interpretation Comments POC-GLUCOSE METER 115 mg/dL 70-110 H : TESTED A T [facility] 6720 (BEAKER) (test code = [facility], 1538) 99445: Repairer Maintenance Building/Techni estefani ID = [id number] for CRYSTAL RANGEL POCT-GLUCOSE [id number] 17:07:00 Test Item Value Reference Range Interpretation Comments POC-GLUCOSE METER 124 mg/dL 70-110 H : TESTED A T [facility] 6720 (BEAKER) (test code = [facility], 1538) 87180: Repairer Maintenance Building/Techni estefani ID = [id number] for lAix Guerra POCT-GLUCOSE [id number] 12:54:00 Test Item Value Reference Range Interpretation Comments POC-GLUCOSE METER 96 mg/dL 70-110 : TESTED A T [facility] 6720 (BEAKER) (test code = [facility], 1538) 32272: Repairer Maintenance Building/Techni estefani ID = [id number] for COLLINS SIFUENTES POCT-GLUCOSE [id number] 08:06:00 Test Item Value Reference Range Interpretation Comments POC-GLUCOSE METER 83 mg/dL 70-110 : TESTED A T [facility] 6720 (BEAKER) (test code = [facility], 1538) 69791: Repairer Maintenance Building/Techni estefani ID = [id number] for COLLINS SIFUENTES BASIC METABOLIC [id number] 07:36:00 Test Item Value Reference Range Interpretation [...] S NOT APPLICABLE FOR DIALYSIS PATIEN TS. Repairer Maintenance Building ID - PIAYA LPOCT-GLUCOSE [id number] 21:38:00 Test Item Value Reference Range Interpretation Comments POC-GLUCOSE METER 130 mg/dL 70-110 H : TESTED A T [facility] 6720 (BEAKER) (test code = [facility], 1538) 90928: Repairer Maintenance Building/Techni estefani ID = [id number] for SA CRYSTAL HIGGINS POCT-GLUCOSE [id number] 16:28:00 Test Item Value Reference Range Interpretation Comments POC-GLUCOSE METER 127 mg/dL 70-110 H : TESTED A T [facility] 6720 (BEAKER) (test code = [facility], 1538) 29290: Repairer Maintenance Building/Techni estefani ID = [id number] for JAD SALGUERO POCT-GLUCOSE [id number] 11:41:00 Test Item Value Reference Range Interpretation Comments POC-GLUCOSE METER 143 mg/dL 70-110 H : TESTED A T [facility] 6720 (BEAKER) (test code = [facility], 1538) 33058: Repairer Maintenance Building/Techni estefani ID = [id number] for JAD SALGUERO POCT-GLUCOSE [id number] 08:03:00 Test Item Value Reference Range Interpretation Comments POC-GLUCOSE METER 86 mg/dL 70-110 : TESTED A T [facility] 6720 (BEAKER) (test code = [facility], 1538) 07295: Repairer Maintenance Building/Techni estefani ID = [id number] for JAD MICHAEL BASIC METABOLIC [id number] 07:41:00 Test Item Value Reference Range Interpretation [...] S NOT APPLICABLE FOR DIALYSIS PATIEN TS. Repairer Maintenance Building ID - JAQUELINE MCBC W/PLT COUNT & AUTO [id number] 07:15:00 Test Item Value Reference Range Interpretation [...] PERCENT (BEAKER) (test code = 2801) POCT-GLUCOSE [id number] 21:13:00 Test Item Value Reference Range Interpretation Comments POC-GLUCOSE METER 146 mg/dL 70-110 H : TESTED A T [facility] 6720 (BEAKER) (test code = [facility], 1538) 36301: Repairer Maintenance Building/Techni estefani ID = [id number] for CRYSTAL RANGEL POCT-GLUCOSE [id number] 17:37:00 Test Item Value Reference Range Interpretation Comments POC-GLUCOSE METER 140 mg/dL 70-110 H : TESTED A T [facility] 6720 (BEAKER) (test code = [facility], [facility]8) 17550: Repairer Maintenance Building/Techni estefani ID = [id number] for JAD SALGUERO POCT-GLUCOSE [id number] 13:12:00 Test Item Value Reference Range Interpretation Comments POC-GLUCOSE METER 78 mg/dL 70-110 : TESTED A T [facility] 6720 (BEAKER) (test code = [facility], 1538) 24647: Repairer Maintenance Building/Techni estefani ID = [id number] for JAD MICHAEL POCT-GLUCOSE [id number] 07:32:00 Test Item Value Reference Range Interpretation Comments POC-GLUCOSE METER 77 mg/dL 70-110 : TESTED A T [facility] 6720 (BEAKER) (test code = [facility], [facility]8) 15725: Repairer Maintenance Building/Techni estefani ID = [id number] for JAD MICHAEL BASIC METABOLIC [id number] 07:14:00 Test Item Value Reference Range Interpretation [...] S NOT APPLICABLE FOR DIALYSIS PATIEN TS. Repairer Maintenance Building ID - [id number] 07:04:00 Test Item Value Reference Range Interpretation Comments [facility] (BEAKER) (test code = 5.2 mg/dL 2.3-4.7 H 604) Repairer Maintenance Building ID - ADMINPOCT-GLUCOSE [id number] 21:39:00 Test Item Value Reference Range Interpretation Comments POC-GLUCOSE METER 148 mg/dL 70-110 H : TESTED A T [facility] 6720 (BEAKER) (test code = [facility], 1538) 12639: Repairer Maintenance Building/Techni estefani ID = [id number] for TEJINEDR MORALES POCT-GLUCOSE [id number] 17:38:00 Test Item Value Reference Range Interpretation Comments POC-GLUCOSE METER 114 mg/dL 70-110 H : TESTED A T [facility] 6720 (BEAKER) (test code = [facility], 1538) 71764: Repairer Maintenance Building/Techni estefani ID = [id number] for CLAUDIA GALAVIZ, AMADA POCT-GLUCOSE [id number] 16:11:00 Test Item Value Reference Range Interpretation Comments POC-GLUCOSE METER 93 mg/dL 70-110 : TESTED A T [facility] 6720 (BEAKER) (test code = [facility], 1538) 62076: Repairer Maintenance Building/Techni estefani ID = [id number] for CHARITY DIMAS, AMADA POCT-GLUCOSE [id number] 14:27:00 Test Item Value Reference Range Interpretation Comments POC-GLUCOSE METER 98 mg/dL 70-110 : TESTED A T [facility] 6720 (BEAKER) (test code = [facility], 1538) 60933: Repairer Maintenance Building/Techni estefani ID = [id number] for JOYSteve OR, TEIKA POCT-GLUCOSE [id number] 07:48:00 Test Item Value Reference Range Interpretation Comments POC-GLUCOSE METER 101 mg/dL 70-110 : TESTED A T [facility] 6720 (BEAKER) (test code = [facility], 1538) 56903: Repairer Maintenance Building/Techni estefani ID = [id number] for FAUZIA AYLA KEARNS POCT-GLUCOSE [id number] 07:24:00 Test Item Value Reference Range Interpretation Comments POC-GLUCOSE METER 101 mg/dL 70-110 : TESTED Vikas Velásquez [facility] 6720 (NOE) (test code = [facility] [place], 1538) 62941: Repairer Maintenance Building/Techni estefani ID = [id number] for AMADA MEDRANO SARS-COV2/RT-PCR ([facility])2020-03-20 07:17:00 Test Item Value Reference Range Interpretation Comments SARS-COV2/RT-PCR (test Negative Not Detected, Negative, code = 6658538) See external report for linked test SARS-COV-2 PERFORMING LAB [facility] (test code = 6663424) Negative result for this test determines that [...] the Giles SARS-CoV-2 assay.Fact Sheet for Healthcare Providers:https://www.Digital Guardian.giles/ari/ PF_TPCH-QkM-3_IYJ_Xgnk_Yufrh_44-561588.pdfFact Sheet for Healthcare Patients:https://www.Digital Guardian.Infinio radha/ari/[place]_COII-YpT-1_Tsnbvcl_Pjyq_Qolmj_PT_03-405200D4.pdfPerforming Laboratory:[facility] [address] [place] [address] POCT-GLUCOSE [id number] 21:54:00 Test Item Value Reference Range Interpretation Comments POC-GLUCOSE METER 155 mg/dL 70-110 H : TESTED A T [facility] 6720 (BEAKER) (test code = [facility], 1538) 45707: Repairer Maintenance Building/Techni estefani ID = [id number] for TEJINDER MORALES ANAEROBIC [id number] 19:28:00 Test Item Value Reference Range Interpretation Comments CULTURE (BEAKER) (test No anaerobes isolated code = 1095) ANAEROBIC [id number] 19:23:00 Test Item Value Reference Range Interpretation Comments CULTURE (BEAKER) (test No anaerobes isolated code = 1095) POCT-GLUCOSE [id number] 17:26:00 Test Item Value Reference Range Interpretation Comments POC-GLUCOSE METER 128 mg/dL 70-110 H : TESTED A T [facility] 6720 (BEAKER) (test code = [facility], 1538) 71350: Repairer Maintenance Building/Techni estefani ID = [id number] for AMADA MEDRANO POCT-GLUCOSE [id number] 12:04:00 Test Item Value Reference Range Interpretation Comments POC-GLUCOSE METER 93 mg/dL 70-110 : TESTED A T [facility] 6720 (BEAKER) (test code = [facility], 1538) 41224: Repairer Maintenance Building/Techni estefani ID = [id number] for AMADA DUKES BASIC METABOLIC [id number] 09:28:00 Test Item Value Reference Range Interpretation [...] S NOT APPLICABLE FOR DIALYSIS PATIEN TS. Repairer Maintenance Building ID - PIAYA LPOCT-GLUCOSE [id number] 21:30:00 Test Item Value Reference Range Interpretation Comments POC-GLUCOSE METER 133 mg/dL 70-110 H : TESTED A T [facility] 6720 (BEAKER) (test code = [facility], [facility]) 02372: Repairer Maintenance Building/Techni estefani ID = [id number] for CRYSTAL RANGEL POCT-GLUCOSE [id number] 19:29:00 Test Item Value Reference Range Interpretation Comments POC-GLUCOSE METER 191 mg/dL 70-110 H : TESTED A T [facility] 6720 (BEAKER) (test code = [facility], 153) 00952: Repairer Maintenance Building/Techni estefani ID = [id number] for MARIFER WEEKS POCT-GLUCOSE [id number] 11:31:00 Test Item Value Reference Range Interpretation Comments POC-GLUCOSE METER 119 mg/dL 70-110 H : TESTED A T [facility] 6720 (BEAKER) (test code = [facility], 1538) 71947: Repairer Maintenance Building/Techni estefain ID = [id number] for ESTEBAN GARZON JAD POCT-GLUCOSE [id number] 07:32:00 Test Item Value Reference Range Interpretation Comments POC-GLUCOSE METER 115 mg/dL 70-110 H : TESTED A T [facility] 6720 (BEAKER) (test code = [facility], 1538) 67482: Repairer Maintenance Building/Techni estefani ID = [id number] for ES QUIVEL, JAD BASIC METABOLIC [id number] 06:39:00 Test Item Value Reference Range Interpretation [...] S NOT APPLICABLE FOR DIALYSIS PATIEN TS. Repairer Maintenance Building ID - PIAYA LCBC W/PLT COUNT & AUTO [id number] 06:01:00 Test Item Value Reference Range Interpretation [...] PERCENT (BEAKER) (test code = 2801) POCT-GLUCOSE [id number] 21:16:00 Test Item Value Reference Range Interpretation Comments POC-GLUCOSE METER 145 mg/dL 70-110 H : TESTED A T [facility] 6720 (BEAKER) (test code = D[facility], 1538) 89943: Repairer Maintenance Building/Techni estefani ID = [id number] for CRYSTAL RANGEL TISSUE [id number] 19:02:00Surgical Pathology Report Case: [id number] Authorizing Provider: Star Cloud DPM Collected: 03/13/2020 12:32 PM Ordering Location: [facility] Received: 03/13/2020 02:59 PM PERIOPERATIVE SERVICES Pathologist: Vandana Beverly MD Specimen: Metat arsal, Right, base of the first metatarsal bone RIGHT FOOT, BASE OF 1ST METATARSAL, NON-HEALING WOUND, DEBRIDEMENT: - GANGRENOUS NECROSIS INVOLVING SKIN AND SUBCUTANEOUSTISSUE - ACUTE OSTEOMYELITIS, SEVERE Signing Pathologist Direct Phone Line: [phone] signed by Vandana Beverly MD on 03/17/2020 at 7:02 [id number]; [id number] surgical wound, sequela Metatarsal, rightReceived in formalin [...] reveals a gardner-yellow, firm, trabeculated cut surface. Ophthalmic Pathologist sections are submitted as follows:Section codeA1-skin and soft kmbnasO9-W5-abvi following decalcificationPifransiscor LEW Caraballo HT (ASCP)PERFORMEDThe interpretation of this case included the use of immunohistochemistry or special stains.Control Slides Examined: In-house known positive controls were evaluated along with the test tissue. These control slides run alongside of the patients sample show appropriate staining. Internal positive and negative controls when available are evaluated Immunohistochemistry technical testing was performed at [facility] PathologyLaboratory where it was developed and its [...] to perform high complexity clinical laboratory testing.POCT-GLUCOSE [id number] 17:26:00 Test Item Value Reference Range Interpretation Comments POC-GLUCOSE METER 145 mg/dL 70-110 H : TESTED Vikas Zaire [facility] 6720 (NOE) (test code = [facility] [place], 1538) 92483: Repairer Maintenance Building/Techni estefani ID = [id number] for Sabine Vazquez POCT-GLUCOSE [id number] 07:31:00 Test Item Value Reference Range Interpretation Comments POC-GLUCOSE METER 94 mg/dL 70-110 : TESTED A T [facility] 6720 (BEAKER) (test code = [facility] [place], 1538) 09759: Repairer Maintenance Building/Techni estefani ID = [id number] for JAD MICHAEL CBC W/PLT COUNT & AUTO [id number] 06:23:00 Test Item Value Reference Range Interpretation [...] PERCENT (BEAKER) (test code = 2801) POCT-GLUCOSE [id number] 06:14:00 Test Item Value Reference Range Interpretation Comments POC-GLUCOSE METER 97 mg/dL 70-110 : TESTED A T [facility] 6720 (BEAKER) (test code = [facility] [place], 1538) 07650: Repairer Maintenance Building/Techni estefani ID = [id number] for TEJINDER KITCHEN BASIC METABOLIC [id number] 06:14:00 Test Item Value Reference Range Interpretation [...] S NOT APPLICABLE FOR DIALYSIS PATIEN TS. Repairer Maintenance Building ID - EDASIBLOOD [id number] 00:01:00 Test Item Value Reference Range Interpretation Comments CULTURE (BEAKER) (test No growth in 5 days code = 1095) BLOOD [id number] 00:01:00 Test Item Value Reference Range Interpretation Comments CULTURE (BEAKER) (test No growth in 5 days code = 1095) POCT-GLUCOSE [id number] 21:35:00 Test Item Value Reference Range Interpretation Comments POC-GLUCOSE METER 169 mg/dL 70-110 H : TESTED A T [facility] 6720 (BEAKER) (test code = [facility] [place] Jose [facility], 153) 81301: Repairer Maintenance Building/Techni estefani ID = [id number] for TEJINDER MORALES POCT-GLUCOSE [id number] 17:54:00 Test Item Value Reference Range Interpretation Comments POC-GLUCOSE METER 133 mg/dL 70-110 H : TESTED A T [facility] 6720 (BEAKER) (test code = [facility] [place] Jose [facility], 1538) 97200: Repairer Maintenance Building/Techni estefani ID = [id number] for JAQUI SKELTON POCT-GLUCOSE [id number] 12:50:00 Test Item Value Reference Range Interpretation Comments POC-GLUCOSE METER 110 mg/dL 70-110 : TESTED A T [facility] 6720 (BEAKER) (test code = [facility] [place] Jose [facility], 1538) 91025: Repairer Maintenance Building/Techni estefani ID = [id number] for JAQUI SKELTON SURGICALLY OBTAINED CULTURE + GRAM [id number] 09:39:00 Test Item Value Reference Range Interpretation [...] organisms seen RESULT (BEAKER) (test code = 383449) SURGICALLY OBTAINED CULTURE + GRAM [id number] 09:39:00 Test Item Value Reference Range Interpretation Comments CULTURE (BEAKER) A 1+ Same org anism has (test code = been isolated f rom 1095) cultures(s) of the same body site within 3 days. Repeat identification and susceptibility testing performed only after consultation [facility] the clinical microb iology laboratory.Refe r to previous cultur e ofPseudomonas aeruginosaof a second type GRAM STAIN 2+ White blood RESULT (BEAKER) cells seen (test code = 1123) GRAM STAIN <1+ gram RESULT (BEAKER) negative rods (test code = 600424) POCT-GLUCOSE [id number] 08:12:00 Test Item Value Reference Range Interpretation Comments POC-GLUCOSE METER 88 mg/dL 70-110 : TESTED A T [facility] 6720 (BEAKER) (test code = [facility] [place] Jose [facility], 1538) 24085: Repairer Maintenance Building/Techni estefani ID = [id number] for GAUTAM RUIZ (V)EFRAIN POCT-GLUCOSE [id number] 07:19:00 Test Item Value Reference Range Interpretation Comments POC-GLUCOSE METER 97 mg/dL 70-110 : TESTED A T [facility] 6720 (BEAKER) (test code = [facility], 1538) 11871: Repairer Maintenance Building/Techni estefani ID = [id number] for NATE JUAN BASIC METABOLIC [id number] 07:19:00 Test Item Value Reference Range Interpretation [...] S NOT APPLICABLE FOR DIALYSIS PATIEN TS. Repairer Maintenance Building ID - [id number] 07:08:00 Test Item Value Reference Range Interpretation Comments MAGNESIUM (BEAKER) (test code = 2.1 mg/dL 1.6-2.6 627) Repairer Maintenance Building ID - EDASICBC W/PLT COUNT & AUTO [id number] 06:30:00 Test Item Value Reference Range Interpretation [...] PERCENT (BEAKER) (test code = 2801) POCT-GLUCOSE [id number] 20:33:00 Test Item Value Reference Range Interpretation Comments POC-GLUCOSE METER 129 mg/dL 70-110 H : TESTED A T [facility] 6720 (BEAKER) (test code = [facility], 1538) 36301: Repairer Maintenance Building/Techni estefani ID = [id number] for JAD SALGUERO POCT-GLUCOSE [id number] 17:20:00 Test Item Value Reference Range Interpretation Comments POC-GLUCOSE METER 108 mg/dL 70-110 : TESTED A T [facility] 6720 (BEAKER) (test code = [facility], 1538) 34935: Repairer Maintenance Building/Techni estefani ID = [id number] for ANTONIO GONSALEZDE, RITCHEL POCT-GLUCOSE [id number] 11:17:00 Test Item Value Reference Range Interpretation Comments POC-GLUCOSE METER 115 mg/dL 70-110 H : TESTED A T [facility] 6720 (BEAKER) (test code = [facility], 1538) 18653: Repairer Maintenance Building/Techni estefani ID = [id number] for OK BERTHA, ANYA POCT-GLUCOSE [id number] 08:18:00 Test Item Value Reference Range Interpretation Comments POC-GLUCOSE METER 87 mg/dL 70-110 : TESTED A T [facility] 6720 (BEAKER) (test code = [facility], 1538) 94876: Repairer Maintenance Building/Techni estefani ID = [id number] for ARIANNE GALLEGO, RITCHEL [id number] 07:32:00 Test Item Value Reference Range Interpretation Comments MAGNESIUM (BEAKER) (test code = 2.0 mg/dL 1.6-2.6 627) Repairer Maintenance Building ID - EDASIBASIC METABOLIC [id number] 07:32:00 Test Item Value Reference Range Interpretation [...] S NOT APPLICABLE FOR DIALYSIS PATIEN TS. Repairer Maintenance Building ID - EDASICBC W/PLT COUNT & AUTO [id number] 07:08:00 Test Item Value Reference Range Interpretation [...] PERCENT (BEAKER) (test code = 2801) POCT-GLUCOSE [id number] 22:22:00 Test Item Value Reference Range Interpretation Comments POC-GLUCOSE METER 180 mg/dL 70-110 H : TESTED A T [facility] 6720 (BEAKER) (test code = [facility], 1538) 86914: Repairer Maintenance Building/Techni estefani ID = [id number] for CRYSTAL RANGEL HEPATITIS B SURFACE [id number] 17:23:00 Test Item Value Reference Range Interpretation Comments HEPATITIS B SURFACE ANTIGEN (2) Nonreactive Nonreactive (BEAKER) (test code = 2585) Specimen is considered negative for HBsAg.SPIN/CONCENTRATION [id number] 14:24:00 Test Item Value Reference Range Interpretation Comments CONCENTRATION CHARGED (BEAKER) (test Done code = 2657) SPIN/CONCENTRATION [id number] 14:23:00 Test Item Value Reference Range Interpretation Comments CONCENTRATION CHARGED (BEAKER) (test Done code = 2657) POCT-GLUCOSE [id number] 12:00:00 Test Item Value Reference Range Interpretation Comments POC-GLUCOSE METER 84 mg/dL 70-110 : TESTED A T [facility] 6720 (BEAKER) (test code = [facility], 1538) 63007: Repairer Maintenance Building/Techni estefani ID = [id number] for AMADA DUKES BASIC METABOLIC [id number] 09:03:00 Test Item Value Reference Range Interpretation [...] S NOT APPLICABLE FOR DIALYSIS PATIEN TS. Repairer Maintenance Building ID - DANITZA [id number] 08:43:00 Test Item Value Reference Range Interpretation Comments MAGNESIUM (BEAKER) (test code = 2.4 mg/dL 1.6-2.6 627) Repairer Maintenance Building ID - PIZAYRA LPOCT-GLUCOSE [id number] 07:47:00 Test Item Value Reference Range Interpretation Comments POC-GLUCOSE METER 99 mg/dL 70-110 : TESTED A T [facility] 6720 (BEAKER) (test code = [facility], 153) 20684: Repairer Maintenance Building/Techni estefani ID = [id number] for AMADA DUKES POCT-GLUCOSE [id number] 22:12:00 Test Item Value Reference Range Interpretation Comments POC-GLUCOSE METER 139 mg/dL 70-110 H : TESTED A T [facility] 6720 (BEAKER) (test code = [facility], 1538) 03048: Repairer Maintenance Building/Techni estefani ID = [id number] for TEJINDER MORALES POCT-GLUCOSE [id number] 17:34:00 Test Item Value Reference Range Interpretation Comments POC-GLUCOSE METER 157 mg/dL 70-110 H : TESTED A T [facility] 6720 (BEAKER) (test code = [facility], 1538) 62032: Repairer Maintenance Building/Techni estefani ID = [id number] for DANK GALINDO (V) EFRAIN POCT-GLUCOSE [id number] 14:08:00 Test Item Value Reference Range Interpretation Comments POC-GLUCOSE METER 94 mg/dL 70-110 : TESTED A T [facility] 6720 (BEAKER) (test code = [facility], 1538) 44478: Repairer Maintenance Building/Techni estefani ID = [id number] for MARTIN SHARMA HGB/HCT (H&H) - STAT [id number] 10:02:00 Test Item Value Reference Range Interpretation Comments HEMOGLOBIN (BEAKER) (test code = 8.5 GM/DL 13.0-16.8 L 410) HEMATOCRIT (BEAKER) (test code = 25.0 % 40.0-50.0 L 411) POTASSIUM-STAT [id number] 09:56:00 Test Item Value Reference Range Interpretation Comments POTASSIUM (BEAKER) (test code = 3.6 meq/L 3.6-5.5 379) POCT-GLUCOSE [id number] 07:53:00 Test Item Value Reference Range Interpretation Comments POC-GLUCOSE METER 97 mg/dL 70-110 : TESTED A T [facility] 6720 (BEAKER) (test code = [facility], 153) 17228: Repairer Maintenance Building/Techni estefani ID = [id number] for LATT IMORE - FLETCHER, COLLINS POCT-GLUCOSE [id number] 22:01:00 Test Item Value Reference Range Interpretation Comments POC-GLUCOSE METER 173 mg/dL 70-110 H : TESTED A T [facility] 6720 (BEAKER) (test code = [facility], 153) 98393: Repairer Maintenance Building/Techni estefani ID = [id number] for ES RYANN, JAD POCT-GLUCOSE [id number] 18:20:00 Test Item Value Reference Range Interpretation Comments POC-GLUCOSE METER 161 mg/dL 70-110 H : TESTED A T [facility] 6720 (BEAKER) (test code [facility], = 1538) 64917: Repairer Maintenance Building/Techni estefani ID = [id number] for LATT IMORE - FLETCHER, COLLINS POCT-GLUCOSE [id number] 12:22:00 Test Item Value Reference Range Interpretation Comments POC-GLUCOSE METER 94 mg/dL 70-110 : TESTED A T [facility] 6720 (NOE) (test code = D[place], 1538) 75863: Repairer Maintenance Building/Techni estefani ID = [id number] for COLLINS SIFUENTES SARS-COV2/RT-PCR ([facility])2020-03-12 12:11:00 Test Item Value Reference Range Interpretation Comments SARS-COV2/RT-PCR (test code Negative Not Detected, Negative, = 9000349) See external report for linked test SARS-COV-2 PERFORMING LAB [facility] (test code = 7504242) Negative results do not preclude SARS-CoV-2 infection [...] of the Act.Fact Sheet for Healthcare Pro viders:https://www.Qonf.com/Documents/Xpert%20Xpress%20SARS%20CoV-2/Fact%20Sh eets/302-4552%91OHHV-ZWQ-6%20HEALTHCARE%20PROVIDERS%20FACT%20SHEET.pdfFact Sheet for Healthcare Patients:https://www.[employer].com/Documents/Xpert%20Xpress%20SARS%20CoV-2/Fact%20Sheets/3023801%20SARS-COV -2%20PATIENT%20FACT%20SHEET.pdfPerforming Laboratory:[facility] [place], [place] [address]VWAP-QDMNTHE [id number] 08:44:00 Test Item Value Reference Range Interpretation Comments POC-GLUCOSE METER 92 mg/dL 70-110 : TESTED A T [facility] 6720 (BEAKER) (test code = DASIA Garcia [facility], 1538) 40634: Repairer Maintenance Building/Techni estefani ID = [id number] for COLLINS SIFUENTES HEMOGLOBIN [id number] 08:17:00 Test Item Value Reference Range Interpretation Comments HEMOGLOBIN A1C (BEAKER) (test code = 5.6 % 4.3-6.1 368) HEPATIC FUNCTION [id number] 06:07:00 Test Item Value Reference Range Interpretation [...] code = < U/L 6-55 L 347) Repairer Maintenance Building ID - ADMINC-REACTIVE [id number] 06:06:00 Test Item Value Reference Range Interpretation Comments C-REACTIVE PROTEIN (BEAKER) (test 3.99 mg/dL 0.00-0.50 H code = 676) Repairer Maintenance Building ID - ADMINBASIC METABOLIC [id number] 06:06:00 Test Item Value Reference Range Interpretation [...] S NOT APPLICABLE FOR DIALYSIS PATIEN TS. Repairer Maintenance Building ID - ADMINPROTHROMBIN [id number] 04:50:00 Test Item Value Reference Range Interpretation [...] S NOT APPLICABLE FOR DIALYSIS PATIEN TS. Repairer Maintenance Building ID - PIAYA LOperator ID - PIAYA LCBC W/PLT COUNT & AUTO [id number] 23:42:00 Test Item Value Reference Range Interpretation [...] PERCENT (BEAKER) (test code = 2801) PROTHROMBIN [id number] 23:21:00 Test Item Value Reference Range Interpretation [...] is2.5-3.5 for patients wiht mechanical heart valves.POCT-GLUCOSE [id number] 22:00:00 Test Item Value Reference Range Interpretation Comments POC-GLUCOSE METER 203 mg/dL 70-110 H : TESTED A T [facility] 6720 (BEAKER) (test code = [facility] [place], 1538) 48652: Repairer Maintenance Building/Techni estefani ID = [id number] for ROJELIO BAUM CBC W/AUTO [id number] 19:57:00 Test Item Value Reference Range Interpretation [...] (test code NO = MDIFF) COMPREHENSIVE METABOLIC [id number] 09:31:00 Test Item Value Reference Range Interpretation [...] MDRD formula.Chronic kidney disease is defined as ei er kidney damageor GFR <60 mL/min/1.73 m2 [...] ALKP) to change in reagent. COMPREHENSIVE METABOLIC [id number] 09:24:00 Test Item Value Reference Range Interpretation [...] IUnit/L 45-117 code = ALKP) CBC W/AUTO [id number] 08:56:00 Test Item Value Reference Range Interpretation [...] is no long er being reported. HGB [id number] 21:19:00 Test Item Value Reference Range Interpretation Comments HEMOGLOBIN (test code 7.0 gram/dL 13.0-17.5 L = HGB) HEMATOCRIT (test code 21.8 % 42.0-52.0 LL Resul ts called to = HCT) NICHO BuitragoLAB. 2118Critical re sults verified and re ad back by Nurse? Y HGB [id number] 20:40:00 Test Item Value Reference Range Interpretation Comments HEMOGLOBIN (test code = HGB) 6.9 gram/dL 13.0-17.5 L HEMATOCRIT (test code = HCT) 22.1 % 42.0-52.0 L FUNGUS CULTURE + [id number] 16:32:00 Test Item Value Reference Range Interpretation Comments CULTURE (BEAKER) (test No fungus isolated in code = 1095) 28 days FUNGUS SMEAR (BEAKER) No fungal elements seen (test code = 1406) FUNGUS CULTURE + [id number] 16:32:00 Test Item Value Reference Range Interpretation [...] bacilli (test code = 994) seen POCT-GLUCOSE [id number] 12:16:00 Test Item Value Reference Range Interpretation Comments POC-GLUCOSE METER 104 mg/dL 70-110 : [facility] (test code = DASIA Garcia [facility], 1538) 00887: Repairer Maintenance Building/Techni estefani ID = [id number] for NOEL CISNEROSTA POCT-GLUCOSE [id number] 07:26:00 Test Item Value Reference Range Interpretation Comments POC-GLUCOSE METER 89 mg/dL 70-110 : [facility] ([facility]ER[facility] (test code = DASIA Garcia [facility], 1538) 04683: Repairer Maintenance Building/Techni estefani ID = [id number] for CARMELA FRIEDYITA SARS-COV2/RT-PCR ([facility])2020-01-22 07:13:00 Test Item Value Reference Range Interpretation Comments SARS-COV2/RT-PCR (test Negative Not Detected, Negative, code = 1614137) See external report for linked test SARS-COV-2 PERFORMING LAB [facility] (test code = 1389618) Negative result for this test determines that [...] the Giles SARS-CoV-2 assay.Fact Sheet for Healthcare Providers:https://www.Digital Guardian.giles/ari/ NN_QYJU-UdX-9_OKQ_Skbp_Kgysh_84-248890.pdfFact Sheet for Healthcare Patients:https://www.Digital Guardian.Infinio radha/ari/MX_NOEA-RlU-3_Dywmcnm_Aupp_Roofj_OO_77-336606X4.pdfPerforming Laboratory:[address] [place] [address] BASIC METABOLIC [id number] 06:27:00 Test Item Value Reference Range Interpretation [...] S NOT APPLICABLE FOR DIALYSIS PATIEN TS. Repairer Maintenance Building ID - EDASIPOCT-GLUCOSE [id number] 21:15:00 Test Item Value Reference Range Interpretation Comments POC-GLUCOSE METER 123 mg/dL 70-110 H : TESTED A T [facility] 6720 (BEAKER) (test code [facility], = 1538) 17416: Repairer Maintenance Building/Techni estefani ID = [id number] for BRADEN SWARTZ HEPATITIS B SURFACE [id number] 18:16:00 Test Item Value Reference Range Interpretation Comments HEPATITIS B SURFACE ANTIGEN (2) Nonreactive Nonreactive (BEAKER) (test code = 2585) Specimen is considered negative for HBsAg.POCT-GLUCOSE [id number] 16:50:00 Test Item Value Reference Range Interpretation Comments POC-GLUCOSE METER 110 mg/dL 70-110 : TESTED A T [facility] 6720 (BEAKER) (test code = [facility], 1538) 39509: Repairer Maintenance Building/Techni estefani ID = [id number] for MONISHA SCHAEFER POCT-GLUCOSE [id number] 07:55:00 Test Item Value Reference Range Interpretation Comments POC-GLUCOSE METER 75 mg/dL 70-110 : TESTED A T [facility] 6720 (BEAKER) (test code = [facility] [place] Jose [facility], 1538) 19527: Repairer Maintenance Building/Techni estefani ID = [id number] for MONISHA BLANCHARD BASIC METABOLIC [id number] 05:59:00 Test Item Value Reference Range Interpretation [...] S NOT APPLICABLE FOR DIALYSIS PATIEN TS. Repairer Maintenance Building ID - EDASIPOCT-GLUCOSE [id number] 19:48:00 Test Item Value Reference Range Interpretation Comments POC-GLUCOSE METER 133 mg/dL 70-110 H : TESTED A T [facility] 6720 (BEAKER) (test code = [facility], 153) 08827: Repairer Maintenance Building/Techni estefani ID = [id number] for MALGORZATA MORRISON (V)CHRIS POCT-GLUCOSE [id number] 16:50:00 Test Item Value Reference Range Interpretation Comments POC-GLUCOSE METER 106 mg/dL 70-110 : [facility] (test code = [facility], 1538) 64190: Repairer Maintenance Building/Techni estefani ID = [id number] for GISELA JACINTO, SHABNAM POCT-GLUCOSE [id number] 11:54:00 Test Item Value Reference Range Interpretation Comments POC-GLUCOSE METER 104 mg/dL 70-110 : [facility] (test code = [facility], 153) 73971: Repairer Maintenance Building/Techni estefani ID = [id number] for HIGGINS NNJo, SHABNAM POCT-GLUCOSE [id number] 07:53:00 Test Item Value Reference Range Interpretation Comments POC-GLUCOSE METER 88 mg/dL 70-110 : [facility] (test code = TESTED AT [facility] 6720 1538) [facility], 12460: Repairer Maintenance Building/Techni estefani ID = [id number] for SHABNAM KUMAR BASIC METABOLIC [id number] 04:56:00 Test Item Value Reference Range Interpretation [...] S NOT APPLICABLE FOR DIALYSIS PATIEN TS. Repairer Maintenance Building ID - EDASICBC W/PLT COUNT & AUTO [id number] 04:15:00 Test Item Value Reference Range Interpretation [...] PERCENT (BEAKER) (test code = 2801) POCT-GLUCOSE [id number] 20:55:00 Test Item Value Reference Range Interpretation Comments POC-GLUCOSE METER 128 mg/dL 70-110 H : TESTED A T [facility] 6720 (BEAKER) (test code = CHRISTOSDELPHINE Garcia [facility], 1538) 45787: Repairer Maintenance Building/Techni estefani ID = [id number] for FE RNANDO (V), KARI POCT-GLUCOSE [id number] 17:32:00 Test Item Value Reference Range Interpretation Comments POC-GLUCOSE METER 116 mg/dL 70-110 H : TESTED A T [facility] 6720 (BEAKER) (test SHENA [facility], [address]: code = 1538) Repairer Maintenance Building/Techni estefani ID = [id number] for SINDI SANCHEZ IN HEPATITIS B SURFACE [id number] 07:59:00 Test Item Value Reference Range Interpretation Comments HEPATITIS B SURFACE ANTIBODY < mIU/mL <8.0 (BEAKER) (test code = 647) Repairer Maintenance Building ID - ADMINBASIC METABOLIC [id number] 06:46:00 Test Item Value Reference Range Interpretation [...] S NOT APPLICABLE FOR DIALYSIS PATIEN TS. Repairer Maintenance Building ID - ADMINCBC W/PLT COUNT & AUTO [id number] 05:21:00 Test Item Value Reference Range Interpretation [...] code = 2801) HEPATITIS B CORE ANTIBODY, [id number] 03:01:00 Test Item Value Reference Range Interpretation Comments HEPATITIS B CORE TOTAL ANTIBODY Nonreactive Nonreactive ([facility]) (test code = 497) Repairer Maintenance Building ID - ADMINPOCT-GLUCOSE [id number] 22:59:00 Test Item Value Reference Range Interpretation Comments POC-GLUCOSE METER 110 mg/dL 70-110 : TESTED A T [place] [address] ([facility]) (test code = DASIA Garcia [facility], 1538) 60699: Repairer Maintenance Building/Techni estefani ID = [id number] for Lillian randhawa Avery POCT-GLUCOSE [id number] 12:01:00 Test Item Value Reference Range Interpretation Comments POC-GLUCOSE METER 107 mg/dL 70-110 : Notified RN/MD: ([facility]) (test code = TESTED AT [place] [address] 1538) [facility], 96779: Repairer Maintenance Building/Techni estefani ID = [id number] for MOLLY ESCAMILLA, NAKULHA POCT-GLUCOSE [id number] 07:44:00 Test Item Value Reference Range Interpretation Comments POC-GLUCOSE METER 95 mg/dL 70-110 : Notified RN/MD: TESTED ([facility]) (test code = AT [facility] 67[address] [place] [address]) [facility], 770 30: Repairer Maintenance Building/Techni estefani ID = [id number] for KELSI , COSHA BASIC METABOLIC [id number] 07:25:00 Test Item Value Reference Range Interpretation [...] S NOT APPLICABLE FOR DIALYSIS PATIEN TS. Repairer Maintenance Building ID - MAR CCBC W/PLT COUNT & AUTO [id number] 04:39:00 Test Item Value Reference Range Interpretation [...] PERCENT (BEAKER) (test code = 2801) POCT-GLUCOSE [id number] 22:19:00 Test Item Value Reference Range Interpretation Comments POC-GLUCOSE METER 115 mg/dL 70-110 H : TESTED A T [facility] 6720 (BEAKER) (test code = [facility], 153) 88269: Repairer Maintenance Building/Techni estefani ID = [id number] for Lindsay Montoya POCT-GLUCOSE [id number] 16:56:00 Test Item Value Reference Range Interpretation Comments POC-GLUCOSE METER 106 mg/dL 70-110 : TESTED A T [facility] 6720 (BEAKER) (test code = [facility], 153) 43388: Repairer Maintenance Building/Techni estefani ID = [id number] for RI MARIE, ANNMARIE POCT-GLUCOSE [id number] 12:23:00 Test Item Value Reference Range Interpretation Comments POC-GLUCOSE METER 130 mg/dL 70-110 H : TESTED A T [facility] 6720 (BEAKER) (test code = [facility], 153) 82683: Repairer Maintenance Building/Techni estefani ID = [id number] for RI MARIE, ANNMARIE POCT-GLUCOSE [id number] 09:12:00 Test Item Value Reference Range Interpretation Comments POC-GLUCOSE METER 96 mg/dL 70-110 : TESTED A T [facility] 6720 (BEAKER) (test code = [facility], 1538) 38515: Repairer Maintenance Building/Techni estefani ID = [id number] for STEVE DRISCOLL BASIC METABOLIC [id number] 06:45:00 Test Item Value Reference Range Interpretation [...] S NOT APPLICABLE FOR DIALYSIS PATIEN TS. Repairer Maintenance Building ID - JAQUELINE MCBC W/PLT COUNT & AUTO [id number] 05:59:00 Test Item Value Reference Range Interpretation [...] PERCENT (BEAKER) (test code = 2801) POCT-GLUCOSE [id number] 22:30:00 Test Item Value Reference Range Interpretation Comments POC-GLUCOSE METER 126 mg/dL 70-110 H : TESTED A T [facility] 6720 (BEAKER) (test code = [facility], 1538) 70552: Repairer Maintenance Building/Techni estefani ID = [id number] for Lindsay Montoya ANAEROBIC [id number] 19:52:00 Test Item Value Reference Range Interpretation Comments CULTURE (BEAKER) (test No anaerobes isolated code = 1095) ANAEROBIC [id number] 19:52:00 Test Item Value Reference Range Interpretation Comments CULTURE (BEAKER) (test No anaerobes isolated code = 1095) POCT-GLUCOSE [id number] 16:58:00 Test Item Value Reference Range Interpretation Comments POC-GLUCOSE METER 103 mg/dL 70-110 : TESTED A T [facility] 6720 (BEAKER) (test code = [facility], 1538) 27103: Repairer Maintenance Building/Techni estefani ID = [id number] for EVONNE RUBY VIAL POCT-GLUCOSE [id number] 11:48:00 Test Item Value Reference Range Interpretation Comments POC-GLUCOSE METER 140 mg/dL 70-110 H : TESTED A T [facility] 6720 (BEAKER) (test code = [facility], 1538) 10569: Repairer Maintenance Building/Techni estefani ID = [id number] for Ca Olga grissom POCT-GLUCOSE [id number] 07:22:00 Test Item Value Reference Range Interpretation Comments POC-GLUCOSE METER 96 mg/dL 70-110 : TESTED A T [facility] 6720 (BEAKER) (test code = [facility], 1538) 16379: Repairer Maintenance Building/Techni estefani ID = [id number] for Scot tStephonh (cont ract) BASIC METABOLIC [id number] 06:35:00 Test Item Value Reference Range Interpretation [...] S NOT APPLICABLE FOR DIALYSIS PATIEN TS. Repairer Maintenance Building ID - EDASICBC W/PLT COUNT & AUTO [id number] 06:02:00 Test Item Value Reference Range Interpretation [...] PERCENT (BEAKER) (test code = 2801) POCT-GLUCOSE [id number] 22:01:00 Test Item Value Reference Range Interpretation Comments POC-GLUCOSE METER 151 mg/dL 70-110 H : TESTED A T [facility] 6720 (BEAKER) (test code = [facility], 153) 22119: Repairer Maintenance Building/Techni estefani ID = [id number] for MARCY MUIR POCT-GLUCOSE [id number] 17:02:00 Test Item Value Reference Range Interpretation Comments POC-GLUCOSE METER 121 mg/dL 70-110 H : TESTED A T [facility] 6720 (BEAKER) (test code = [facility], 153) 98622: Repairer Maintenance Building/Techni estefani ID = [id number] for EDSON MEJIA POCT-GLUCOSE [id number] 10:53:00 Test Item Value Reference Range Interpretation Comments POC-GLUCOSE METER 114 mg/dL 70-110 H : TESTED A T [facility] 6720 (BEAKER) (test code = [facility], 153) 49825: Repairer Maintenance Building/Techni estefani ID = [id number] for EDSON MEJIA SURGICALLY OBTAINED CULTURE + GRAM [id number] 09:02:00 Test Item Value Reference Range Interpretation [...] CLINICAL consultati on with MICROBIOLOGY LAB [facility].Refe r to previous cultur e [...] negative RESULT (BEAKER) rods (test code = 772289) POCT-GLUCOSE [id number] 07:42:00 Test Item Value Reference Range Interpretation Comments POC-GLUCOSE METER 85 mg/dL 70-110 : TESTED A T [facility] 6720 (BEAKER) (test code = [facility] [place], 1538) 69257: Repairer Maintenance Building/Techni estefani ID = [id number] for EDSON ZARAGOZA BASIC METABOLIC [id number] 06:13:00 Test Item Value Reference Range Interpretation [...] S NOT APPLICABLE FOR DIALYSIS PATIEN TS. Repairer Maintenance Building ID - EDASICBC W/PLT COUNT & AUTO [id number] 05:33:00 Test Item Value Reference Range Interpretation [...] PERCENT (BEAKER) (test code = 2801) POCT-GLUCOSE [id number] 22:55:00 Test Item Value Reference Range Interpretation Comments POC-GLUCOSE METER 91 mg/dL 70-110 : TESTED A T [facility] 6720 (BEAKER) (test code = [facility], 1538) 03031: Repairer Maintenance Building/Techni estefani ID = [id number] for DARRELL LUDWIG POCT-GLUCOSE [id number] 16:20:00 Test Item Value Reference Range Interpretation Comments POC-GLUCOSE METER 123 mg/dL 70-110 H : TESTED A T [facility] 6720 (BEAKER) (test code = [facility], 1538) 62573: Repairer Maintenance Building/Techni estefani ID = [id number] for REJI SNEED POCT-GLUCOSE [id number] 11:41:00 Test Item Value Reference Range Interpretation Comments POC-GLUCOSE METER 142 mg/dL 70-110 H : TESTED A T [facility] 6720 (BEAKER) (test code = [facility], 1538) 08017: Repairer Maintenance Building/Techni estefani ID = [id number] for REJI SNEED POCT-GLUCOSE [id number] 09:19:00 Test Item Value Reference Range Interpretation Comments POC-GLUCOSE METER 115 mg/dL 70-110 H : TESTED A T [facility] 6720 (BEAKER) (test code = [facility], 1538) 05683: Repairer Maintenance Building/Techni estefani ID = [id number] for REJI SNEED BASIC METABOLIC [id number] 06:17:00 Test Item Value Reference Range Interpretation [...] S NOT APPLICABLE FOR DIALYSIS PATIEN TS. Repairer Maintenance Building ID - JAQUELINE MCBC W/PLT COUNT & AUTO [id number] 05:08:00 Test Item Value Reference Range Interpretation [...] PERCENT (BEAKER) (test code = 2801) POCT-GLUCOSE [id number] 21:32:00 Test Item Value Reference Range Interpretation Comments POC-GLUCOSE METER 138 mg/dL 70-110 H : TESTED A T [facility] 6720 (BEAKER) (test code = [place], 1538) 31944: Repairer Maintenance Building/Techni estefani ID = [id number] for HALI GARCIA SARS-COV2/RT-PCR ([facility])2020-01-13 16:42:00 Test Item Value Reference Range Interpretation Comments SARS-COV2/RT-PCR (test Negative Not Detected, Negative, code = 6924717) See external report for linked test SARS-COV-2 PERFORMING LAB [facility] KEELY (test code = 4734905) Negative result for this test determines that [...] the Giles SARS-CoV-2 assay.Fact Sheet for Healthcare Providers:https://www.Digital Guardian.giles/ari/ YD_EQCY-NuN-2_JZO_Gdii_Hzged_50-703454.pdfFact Sheet for Healthcare Patients:https://www.Digital Guardian.Infinio radha/ari/CF_JVQS-FsS-0_Dfpxlmp_Qotx_Upqvo_FV_90-110722R2.pdfPerforming Laboratory:[place] [address] [place] [address] POCT-GLUCOSE [id number] 15:53:00 Test Item Value Reference Range Interpretation Comments POC-GLUCOSE METER 177 mg/dL 70-110 H : TESTED A T [facility] 6720 (BEAKER) ([place], [address]: code = 1538) Repairer Maintenance Building/Techni estefani ID = [id number] for [place] PASTORSINDI CULLEN IN POCT-GLUCOSE [id number] 11:29:00 Test Item Value Reference Range Interpretation Comments POC-GLUCOSE METER 132 mg/dL 70-110 H : TESTED A T [facility] 6720 (BEAKER) ([place], [address]: code = 1538) Repairer Maintenance Building/Techni estefani ID = [id number] for [place] AGUILARTWAN HUNTSINDI ENGLISH IN SURGICALLY OBTAINED CULTURE + GRAM [id number] 08:54:00 Test Item Value Reference Range Interpretation Comments CULTURE (BEAKER) A 1+ Same org anism has been (test code = 1095) isolated from cultures(s) of the same bod y site within 3 days. Repeat identification and susceptibility testing performed only after consultation wi the clinical microb iology laboratory.Refe r to previous cultur e ofPseudomonas a eruginosa POCT-GLUCOSE [id number] 07:31:00 Test Item Value Reference Range Interpretation Comments POC-GLUCOSE METER 124 mg/dL 70-110 H : TESTED A T [facility] 6720 ([facility]) (test [facility], [address]: code = 1538) Repairer Maintenance Building/Techni estefani ID = [id number] for SINDI SANCHEZ IN POCT-GLUCOSE [id number] 22:46:00 Test Item Value Reference Range Interpretation Comments POC-GLUCOSE METER 185 mg/dL 70-110 H : [facility] (test code = [facility], 1538) 79335: Repairer Maintenance Building/Techni estefani ID = [id number] for ALLA MONTOYA POCT-GLUCOSE [id number] 16:38:00 Test Item Value Reference Range Interpretation Comments POC-GLUCOSE METER 153 mg/dL 70-110 H : [facility] (test code = [facility], 1538) 17710: Repairer Maintenance Building/Techni estefani ID = [id number] for TH OMAS, COSHA POCT-GLUCOSE [id number] 12:15:00 Test Item Value Reference Range Interpretation Comments POC-GLUCOSE METER 151 mg/dL 70-110 H : Notified RN/MD: ([facility]) (test code = TESTED AT [facility] 6720 1538) [facility], [address]: Repairer Maintenance Building/Techni estefani ID = [id number] for TH OMAS, COSHA WOUND CULTURE + GRAM [id number] 09:32:00 Test Item Value Reference Range Interpretation Comments CULTURE ([facility]) PSEUDOMONAS A <1+ Pseudom onas (test code [...] No organisms seen (BEAKER) (test code = 943311) POCT-GLUCOSE [id number] 07:11:00 Test Item Value Reference Range Interpretation Comments POC-GLUCOSE METER 121 mg/dL 70-110 H : Notified RN/MD: (BEAKER) (test code = TESTED AT [facility] 6720 0579) [facility], [address]: Repairer Maintenance Building/Techni estefani ID = [id number] for HADLEY MELISSA BASIC METABOLIC [id number] 05:27:00 Test Item Value Reference Range Interpretation [...] S NOT APPLICABLE FOR DIALYSIS PATIEN TS. Repairer Maintenance Building ID - EDASICBC W/PLT COUNT & AUTO [id number] 04:50:00 Test Item Value Reference Range Interpretation [...] PERCENT (BEAKER) (test code = 2801) POCT-GLUCOSE [id number] 21:56:00 Test Item Value Reference Range Interpretation Comments POC-GLUCOSE METER 196 mg/dL 70-110 H : TESTED A T [facility] 6720 (BEAKER) (test code = [facility], 153) 30947: Repairer Maintenance Building/Techni estefani ID = [id number] for EL GONZALEZELL BLOOD [id number] 17:00:00 Test Item Value Reference Range Interpretation Comments CULTURE (BEAKER) (test No growth in 5 days code = 1095) BLOOD [id number] 17:00:00 Test Item Value Reference Range Interpretation Comments CULTURE (BEAKER) (test No growth in 5 days code = 1095) POCT-GLUCOSE [id number] 15:32:00 Test Item Value Reference Range Interpretation Comments POC-GLUCOSE METER 132 mg/dL 70-110 H : TESTED A T [facility] 6720 (BEAKER) (test code = [facility], 153) 67532: Repairer Maintenance Building/Techni estefani ID = [id number] for Juliano Aleman SPIN/CONCENTRATION [id number] 14:39:00 Test Item Value Reference Range Interpretation Comments CONCENTRATION CHARGED (BEAKER) (test Done code = 2657) SPIN/CONCENTRATION [id number] 14:39:00 Test Item Value Reference Range Interpretation Comments CONCENTRATION CHARGED (BEAKER) (test Done code = 2657) POCT-GLUCOSE [id number] 13:00:00 Test Item Value Reference Range Interpretation Comments POC-GLUCOSE METER 187 mg/dL 70-110 H : TESTED A T [facility] 6720 (BEAKER) (test code = [facility], 153) 89788: Repairer Maintenance Building/Techni estefani ID = [id number] for Juliano Aleman [id number] 11:53:00 Test Item Value Reference Range Interpretation Comments PHOSPHORUS (BEAKER) (test code = 2.9 mg/dL 2.3-4.7 604) Repairer Maintenance Building ID - ADMINPOCT-GLUCOSE [id number] 09:45:00 Test Item Value Reference Range Interpretation Comments POC-GLUCOSE METER 117 mg/dL 70-110 H : [facility] ([facility]ER[facility] (test code = [place], 1538) 33277: Repairer Maintenance Building/Techni estefani ID = [id number] for LISA DALLAS BASIC METABOLIC [id number] 05:46:00 Test Item Value Reference Range Interpretation [...] S NOT APPLICABLE FOR DIALYSIS PATIEN TS. Repairer Maintenance Building ID - ADMINCBC W/PLT COUNT & AUTO [id number] 05:13:00 Test Item Value Reference Range Interpretation [...] PERCENT (BEAKER) (test code = 2801) POCT-GLUCOSE [id number] 22:36:00 Test Item Value Reference Range Interpretation Comments POC-GLUCOSE METER 214 mg/dL 70-110 H : TESTED A T [facility] 6720 (BEAKER) (test code = [facility], 1538) 36546: Repairer Maintenance Building/Techni estefani ID = [id number] for MIMS NILE, ELELL POCT-GLUCOSE [id number] 19:08:00 Test Item Value Reference Range Interpretation Comments POC-GLUCOSE METER 106 mg/dL 70-110 : TESTED A T [facility] 6720 (BEAKER) (test code = [facility], 1538) 72850: Repairer Maintenance Building/Techni estefani ID = [id number] for ROSE GONZALES POCT-GLUCOSE [id number] 12:38:00 Test Item Value Reference Range Interpretation Comments POC-GLUCOSE METER 114 mg/dL 70-110 H : TESTED A T [facility] 6720 (BEAKER) (test code = [facility], 1538) 14625: Repairer Maintenance Building/Techni estefani ID = [id number] for KHADRA SKELTON POCT-GLUCOSE [id number] 10:42:00 Test Item Value Reference Range Interpretation Comments POC-GLUCOSE METER 121 mg/dL 70-110 H : TESTED A T [facility] 6720 (BEAKER) (test code = [facility], 1538) 74540: Repairer Maintenance Building/Techni estefani ID = [id number] for KHADRA SKELTON BASIC METABOLIC [id number] 06:21:00 Test Item Value Reference Range Interpretation [...] S NOT APPLICABLE FOR DIALYSIS PATIEN TS. Repairer Maintenance Building ID - JAQUELINE [id number] 06:18:00 Test Item Value Reference Range Interpretation Comments PHOSPHORUS (BEAKER) (test code = 2.6 mg/dL 2.3-4.7 604) Repairer Maintenance Building ID - JAQUELINE MCBC W/PLT COUNT & AUTO [id number] 05:50:00 Test Item Value Reference Range Interpretation [...] PERCENT (BEAKER) (test code = 2801) POCT-GLUCOSE [id number] 21:36:00 Test Item Value Reference Range Interpretation Comments POC-GLUCOSE METER 158 mg/dL 70-110 H : TESTED A T [facility] 6720 (BEAKER) (test code [facility], = 1538) 38430: Repairer Maintenance Building/Techni estefani ID = [id number] for ROMULO MCLEAN POCT-GLUCOSE [id number] 17:12:00 Test Item Value Reference Range Interpretation Comments POC-GLUCOSE METER 212 mg/dL 70-110 H : TESTED A T [facility] 6720 (BEAKER) (test code = [facility], 153) 03767: Repairer Maintenance Building/Techni estefani ID = [id number] for OL MOS, SUREKHA POCT-GLUCOSE [id number] 11:24:00 Test Item Value Reference Range Interpretation Comments POC-GLUCOSE METER 159 mg/dL 70-110 H : TESTED A T [facility] 6720 (BEAKER) (test code = [facility], 153) 03758: Repairer Maintenance Building/Techni estefani ID = [id number] for OL MOS, SUREKHA POCT-GLUCOSE [id number] 10:21:00 Test Item Value Reference Range Interpretation Comments POC-GLUCOSE METER 111 mg/dL 70-110 H : TESTED A T [facility] 6720 (BEAKER) (test code = [facility], 153) 81989: Repairer Maintenance Building/Techni estefani ID = [id number] for RI MARIE ANNMARIE BASIC METABOLIC [id number] 05:04:00 Test Item Value Reference Range Interpretation [...] S NOT APPLICABLE FOR DIALYSIS PATIEN TS. Repairer Maintenance Building ID - JAQUELINE [id number] 04:57:00 Test Item Value Reference Range Interpretation Comments MAGNESIUM (BEAKER) (test code = 2.0 mg/dL 1.6-2.6 627) Repairer Maintenance Building ID - JAQUELINE [id number] 04:57:00 Test Item Value Reference Range Interpretation Comments PHOSPHORUS (BEAKER) (test code = 2.5 mg/dL 2.3-4.7 604) Repairer Maintenance Building ID - JAQUELINE MCBC W/PLT COUNT & AUTO [id number] 04:37:00 Test Item Value Reference Range Interpretation [...] PERCENT (BEAKER) (test code = 2801) POCT-GLUCOSE [id number] 22:46:00 Test Item Value Reference Range Interpretation Comments POC-GLUCOSE METER 163 mg/dL 70-110 H : TESTED A T [facility] 6720 (BEAKER) (test code = [facility], 153) 10996: Repairer Maintenance Building/Techni estefani ID = [id number] for RE TUYET SALINAS POCT-GLUCOSE [id number] 16:09:00 Test Item Value Reference Range Interpretation Comments POC-GLUCOSE METER 141 mg/dL 70-110 H : TESTED A T [facility] 6720 (BEAKER) (test code = [facility], 1538) 89930: Repairer Maintenance Building/Techni estefani ID = [id number] for Tabby Le POCT-GLUCOSE [id number] 11:19:00 Test Item Value Reference Range Interpretation Comments POC-GLUCOSE METER 119 mg/dL 70-110 H : TESTED A T [facility] 6720 (BEAKER) (test code = [facility], 1538) 42476: Repairer Maintenance Building/Techni estefani ID = [id number] for Tabby Le POCT-GLUCOSE [id number] 08:29:00 Test Item Value Reference Range Interpretation Comments POC-GLUCOSE METER 102 mg/dL 70-110 : TESTED A T [facility] 6720 (BEAKER) (test code = [facility] [place], 1538) 97488: Repairer Maintenance Building/Techni estefani ID = [id number] for ARCELIA SUAZO [id number] 06:50:00 Test Item Value Reference Range Interpretation Comments FERRITIN (BEAKER) (test code = 623.64 ng/mL 5.00-275.00 H 361) Repairer Maintenance Building ID - ADMINIRON, TIBC, % SAT. (WITHOUT FERRITIN)2020-01-08 06:28:00 Test Item Value Reference Range Interpretation Comments IRON (BEAKER) (test code = 547) 17.0 ug/dL 40.0-160.0 L TOTAL IRON BINDING CAPACITY 128 ug/dL 250-450 L (BEAKER) (test code = 769) IRON % SATURATION (2) (BEAKER) 13 % 20-55 L (test code = 2590) Repairer Maintenance Building ID - ADMINVANCOMYCIN LEVEL, [id number] 06:26:00 Test Item Value Reference Range Interpretation Comments VANCOMYCIN RANDOM (BEAKER) (test 20.4 ug/mL code = 523) Reference Range: No NormalsOperator ID - ADMINBASIC METABOLIC [id number] 02:21:00 Test Item Value Reference Range Interpretation [...] S NOT APPLICABLE FOR DIALYSIS PATIEN TS. Repairer Maintenance Building ID - [id number] 02:09:00 Test Item Value Reference Range Interpretation Comments MAGNESIUM (BEAKER) (test code = 1.8 mg/dL 1.6-2.6 627) Repairer Maintenance Building ID - [id number] 02:09:00 Test Item Value Reference Range Interpretation Comments PHOSPHORUS (BEAKER) (test code = 2.4 mg/dL 2.3-4.7 604) Repairer Maintenance Building ID - [id number] 02:06:00 Test Item Value Reference Range Interpretation Comments PARTIAL THROMBOPLASTIN TIME 46.2 seconds 22.5-36.0 H (BEAKER) (test code = 760) PROTHROMBIN [id number] 02:05:00 Test Item Value Reference Range Interpretation [...] mechanical heart valves.CBC W/PLT COUNT & AUTO [id number] 02:03:00 Test Item Value Reference Range Interpretation [...] PERCENT (BEAKER) (test code = 2801) POCT-GLUCOSE [id number] 00:26:00 Test Item Value Reference Range Interpretation Comments POC-GLUCOSE METER 118 mg/dL 70-110 H : TESTED Vikas Velásquez [facility] 6720 (BEAKER) (test code = [facility], 1538) 60042: Repairer Maintenance Building/Techni estefani ID = [id number] for Hao marleny Laura POCT-GLUCOSE [id number] 16:33:00 Test Item Value Reference Range Interpretation Comments POC-GLUCOSE METER 154 mg/dL 70-110 H : TESTED A T [facility] 6720 (BEAKER) (test code = [facility] [place] Jose [facility], 1538) 84199: Repairer Maintenance Building/Techni estefani ID = [id number] for RADHA SHELTON POCT-GLUCOSE [id number] 13:11:00 Test Item Value Reference Range Interpretation Comments POC-GLUCOSE METER 169 mg/dL 70-110 H : TESTED A T [facility] 6720 (BEAKER) ([facility] = [facility], 1538) 43223: Repairer Maintenance Building/Techni estefani ID = [id number] for Celi Jesus CBC W/PLT COUNT & AUTO [id number] 10:36:00 Test Item Value Reference Range Interpretation [...] PERCENT (BEAKER) (test code = 2801) POCT-GLUCOSE [id number] 07:59:00 Test Item Value Reference Range Interpretation Comments POC-GLUCOSE METER 107 mg/dL 70-110 : TESTED A T [facility] 6720 (BEAKER) (test code = [facility], 1538) 84536: Repairer Maintenance Building/Techni estefani ID = [id number] for CO RADHA Xie BASIC METABOLIC [id number] 07:01:00 Test Item Value Reference Range Interpretation [...] S NOT APPLICABLE FOR DIALYSIS PATIEN TS. Repairer Maintenance Building ID - ANTONY [id number] 07:00:00 Test Item Value Reference Range Interpretation Comments MAGNESIUM (BEAKER) (test code = 1.9 mg/dL 1.6-2.6 627) Repairer Maintenance Building ID - ANTONY [id number] 07:00:00 Test Item Value Reference Range Interpretation Comments PHOSPHORUS (BEAKER) (test code = 4.4 mg/dL 2.3-4.7 604) Repairer Maintenance Building ID - ANTONY FVANCOMYCIN LEVEL, [id number] 06:30:00 Test Item Value Reference Range Interpretation Comments VANCOMYCIN RANDOM (BEAKER) (test 16.1 ug/mL code = 523) Reference Range: No NormalsOperator ID - EDASICBC W/PLT COUNT & AUTO [id number] 05:53:00 Test Item Value Reference Range Interpretation [...] PERCENT (BEAKER) (test code = 2801) POCT-GLUCOSE [id number] 23:03:00 Test Item Value Reference Range Interpretation Comments POC-GLUCOSE METER 144 mg/dL 70-110 H : [facility]ED A T [facility] 6720 [facility] (test code = [facility] [place], 1538) 74514: Repairer Maintenance Building/Techni estefani ID = [id number] for Pamela Ortiz SARS-COV2/RT-PCR ([facility])2020-01-06 21:26:00 Test Item Value Reference Range Interpretation Comments SARS-COV2/RT-PCR (test code Negative Not Detected, Negative, = 4719584) See external report for linked test SARS-COV-2 PERFORMING LAB [facility] (test code = 5933935) Negative results do not preclude SARS-CoV-2 infection [...] of the Act.Fact Sheet for Healthcare Pro viders:https://www.Medio/Documents/Xpert%20Xpress%20SARS%20CoV-2/Fact%20Sh eets/302-3802%39KTFW-SFM-6%20HEALTHCARE%20PROVIDERS%20FACT%20SHEET.pdfFact Sheet for Healthcare Patients:https://www.Shoprocket/Documents/Xpert%20Xpress%20SARS%20CoV-2/Fact%20Sheets/302-3801%20SARS-COV -2%20PATIENT%20FACT%20SHEET.pdfPerforming Laboratory:[address], [place] [address]QUDNIF ACID, [id number] 20:26:00 Test Item Value Reference Range Interpretation Comments LACTATE BLOOD VENOUS (2) (BEAKER) 0.61 mmol/L 0.50-2.20 (test code = 2872) Repairer Maintenance Building ID - DBRAPID INFLUENZA A&B [id number] 20:15:00 Test Item Value Reference Range Interpretation Comments RAPID INFLUENZA A AG (BEAKER) Negative Negative, Inconclusive (test code = 1622) RAPID INFLUENZA B AG (BEAKER) Negative Negative, Inconclusive (test code = 1623) RAD, CHEST, 1 VIEW, NON [id number] 17:48:00Reason for exam:->FEVERReason for exam:->EMESISReason for exam:->WOUND CHECKShould this be performed at the bedside?->Yes [facility] : 1960 Sex: [...] MDReport Verified Date/Time: 01/06/2020 17:48:53 Reading Location: [place] [address] Body Reading Room RAD, FOOT, MIN 3 VIEWS, RIGHT 2020-01-06 17:48:00Reason for exam:->FEVERReason for exam:->EMESISReason for exam:->WOUND CHECK [facility] : 1960 Sex: MFINAL [...] MDReport Verified Date/Time: 01/06/2020 17:48:53 Reading Location: [address] Body Reading Room (CELLAVISION MANUAL DIFF) [...] CONCENTRATION Adequate (CELLAVISION)(BEAKER) (test code = 3438) Repairer Maintenance Building ID - ruth ann Amin comments: Slide comments:[id number] 17:24:00 Test Item Value Reference Range Interpretation Comments PARTIAL THROMBOPLASTIN TIME 37.5 seconds 22.5-36.0 H (BEAKER) (test code = 760) POCT-GLUCOSE [id number] 17:23:00 Test Item Value Reference Range Interpretation Comments POC-GLUCOSE METER 145 mg/dL 70-110 H : Notified RN/MD: (BEAKER) (test code = TESTED AT [facility] 3059 6582) [place], [address]: Repairer Maintenance Building/Techni estefani ID = [id number] for ROMAIN REEVES PROTHROMBIN [id number] 17:23:00 Test Item Value Reference Range Interpretation [...] for patients wiht mechanical heart valves.HEPATIC FUNCTION [id number] 17:01:00 Test Item Value Reference Range Interpretation [...] (test code = 8 U/L 6-55 347) Repairer Maintenance Building ID - EDASIBASIC METABOLIC [id number] 17:01:00 Test Item Value Reference Range Interpretation [...] S NOT APPLICABLE FOR DIALYSIS PATIEN TS. Repairer Maintenance Building ID - EDASILACTIC ACID, [id number] 17:01:00 Test Item Value Reference Range Interpretation Comments LACTATE BLOOD VENOUS (2) (BEAKER) 1.36 mmol/L 0.50-2.20 (test code = 2872) Repairer Maintenance Building ID - EDASICBC W/PLT COUNT & AUTO [id number] 16:55:00 Test Item Value Reference Range Interpretation [...] (BEAKER) (test code = 2801) BLOOD GAS, [id number] 16:47:00 Test Item Value Reference Range Interpretation [...] code = 1819) 21.0 FUNGUS CULTURE + [id number] 17:16:00 Test Item Value Reference Range Interpretation [...] bacilli (test code = 994) seen POCT-GLUCOSE [id number] 11:45:00 Test Item Value Reference Range Interpretation Comments POC-GLUCOSE METER 126 mg/dL 70-110 H : TESTED A T [facility] 6720 (BEAKER) (test code [facility], = 1538) 78134: Repairer Maintenance Building/Techni estefani ID = [id number] for WILS ONJOSEE POCT-GLUCOSE [id number] 07:39:00 Test Item Value Reference Range Interpretation Comments POC-GLUCOSE METER 94 mg/dL 70-110 : TESTED A T [facility] 6720 (BEAKER) (test code = DASIA Garcia [facility], 1538) 63429: Repairer Maintenance Building/Techni estefani ID = [id number] for WILS ON, JORGESTANIE CBC W/PLT COUNT & AUTO [id number] 05:28:00 Test Item Value Reference Range Interpretation [...] (BEAKER) (test code = 2801) BASIC METABOLIC [id number] 05:25:00 Test Item Value Reference Range Interpretation [...] S NOT APPLICABLE FOR DIALYSIS PATIEN TS. Repairer Maintenance Building ID - [id number] 05:03:00 Test Item Value Reference Range Interpretation Comments MAGNESIUM (BEAKER) (test code = 2.0 mg/dL 1.6-2.6 627) Repairer Maintenance Building ID - DBPOCT-GLUCOSE [id number] 21:31:00 Test Item Value Reference Range Interpretation Comments POC-GLUCOSE METER 138 mg/dL 70-110 H : TESTED A T [facility] 6720 (BEAKER) (test code = [facility], 1538) 18557: Repairer Maintenance Building/Techni estefani ID = [id number] for PHIL MURRELL TTRohit POCT-GLUCOSE [id number] 16:39:00 Test Item Value Reference Range Interpretation Comments POC-GLUCOSE METER 119 mg/dL 70-110 H : TESTED A T [facility] 6720 (BEAKER) (test code = [facility], 1538) 10962: Repairer Maintenance Building/Techni estefani ID = [id number] for QU ARTMAN, NEETA POCT-GLUCOSE [id number] 11:42:00 Test Item Value Reference Range Interpretation Comments POC-GLUCOSE METER 133 mg/dL 70-110 H : TESTED A T [facility] 6720 (BEAKER) (test code = [facility], 1538) 78784: Repairer Maintenance Building/Techni estefani ID = [id number] for QU ARTMAN, NEETA POCT-GLUCOSE [id number] 07:52:00 Test Item Value Reference Range Interpretation Comments POC-GLUCOSE METER 80 mg/dL 70-110 : TESTED A T [facility] 6720 (BEAKER) (test code = [facility], 1538) 04724: Repairer Maintenance Building/Techni estefani ID = [id number] for QUAR TMAN, NEETA HEPATITIS B SURFACE [id number] 07:04:00 Test Item Value Reference Range Interpretation Comments HEPATITIS B SURFACE ANTIGEN (2) Nonreactive Nonreactive (BEAKER) (test code = 2585) Specimen is considered negative for HBsAg.BASIC METABOLIC [id number] 06:35:00 Test Item Value Reference Range Interpretation [...] S NOT APPLICABLE FOR DIALYSIS PATIEN TS. Repairer Maintenance Building ID - [id number] 06:26:00 Test Item Value Reference Range Interpretation Comments MAGNESIUM (BEAKER) (test code = 2.1 mg/dL 1.6-2.6 627) Repairer Maintenance Building ID - DBCBC W/PLT COUNT & AUTO [id number] 06:10:00 Test Item Value Reference Range Interpretation [...] PERCENT (BEAKER) (test code = 2801) POCT-GLUCOSE [id number] 20:59:00 Test Item Value Reference Range Interpretation Comments POC-GLUCOSE METER 164 mg/dL 70-110 H : TESTED A T [facility] 6720 (BEAKER) (test code = [facility], 1538) 80793: Repairer Maintenance Building/Techni estefani ID = [id number] for PHIL MURRELL TTRohit POCT-GLUCOSE [id number] 17:56:00 Test Item Value Reference Range Interpretation Comments POC-GLUCOSE METER 121 mg/dL 70-110 H : TESTED A T [facility] 6720 (BEAKER) (test code = [facility], 1538) 40913: Repairer Maintenance Building/Techni estefani ID = [id number] for NEETA ROLLINS POCT-GLUCOSE [id number] 14:21:00 Test Item Value Reference Range Interpretation Comments POC-GLUCOSE METER 152 mg/dL 70-110 H : TESTED A T [facility] 6720 (BEAKER) (test code = [facility], 1538) 91386: Repairer Maintenance Building/Techni estefani ID = [id number] for KALLI BOOGIE POCT-GLUCOSE [id number] 12:50:00 Test Item Value Reference Range Interpretation Comments POC-GLUCOSE METER 134 mg/dL 70-110 H : TESTED A T [facility] 6720 (BEAKER) (test code = [facility], 1538) 80013: Repairer Maintenance Building/Techni estefani ID = [id number] for NEETA ROLLINS POCT-GLUCOSE [id number] 08:03:00 Test Item Value Reference Range Interpretation Comments POC-GLUCOSE METER 104 mg/dL 70-110 : TESTED A T [facility] 6720 (BEAKER) (test code = [facility], 1538) 19580: Repairer Maintenance Building/Techni estefani ID = [id number] for NEETA ROLLINS BASIC METABOLIC [id number] 07:07:00 Test Item Value Reference Range Interpretation [...] S NOT APPLICABLE FOR DIALYSIS PATIEN TS. Repairer Maintenance Building ID - [id number] 07:00:00 Test Item Value Reference Range Interpretation Comments MAGNESIUM (BEAKER) (test code = 1.9 mg/dL 1.6-2.6 627) Repairer Maintenance Building ID - EDASICBC W/PLT COUNT & AUTO [id number] 06:15:00 Test Item Value Reference Range Interpretation [...] PERCENT (BEAKER) (test code = 2801) POCT-GLUCOSE [id number] 22:35:00 Test Item Value Reference Range Interpretation Comments POC-GLUCOSE METER 152 mg/dL 70-110 H : TESTED A T [facility] 6720 (BEAKER) (test code = [facility], 1538) 55591: Repairer Maintenance Building/Techni estefani ID = [id number] for SUMAN FAM POCT-GLUCOSE [id number] 15:46:00 Test Item Value Reference Range Interpretation Comments POC-GLUCOSE METER 93 mg/dL 70-110 : TESTED A T [facility] 6720 (BEAKER) (test code = [facility], 153) 22868: Repairer Maintenance Building/Techni estefani ID = [id number] for Avery Mendoza POCT-GLUCOSE [id number] 08:50:00 Test Item Value Reference Range Interpretation Comments POC-GLUCOSE METER 143 mg/dL 70-110 H : TESTED A T [facility] 6720 (BEAKER) (test code = [facility], 153) 11421: Repairer Maintenance Building/Techni estefani ID = [id number] for IAIN EASTON BASIC METABOLIC [id number] 06:41:00 Test Item Value Reference Range Interpretation [...] S NOT APPLICABLE FOR DIALYSIS PATIEN TS. Repairer Maintenance Building ID - [id number] 06:40:00 Test Item Value Reference Range Interpretation Comments MAGNESIUM (BEAKER) (test code = 2.0 mg/dL 1.6-2.6 627) Repairer Maintenance Building ID - EDASICBC W/PLT COUNT & AUTO [id number] 05:58:00 Test Item Value Reference Range Interpretation [...] PERCENT (BEAKER) (test code = 2801) SARS-COV2/RT-PCR ([facility])2019-12-21 00:21:00 Test Item Value Reference Range Interpretation Comments SARS-COV2/RT-PCR (test Negative Not Detected, Negative, code = 3499828) See external report for linked test SARS-COV-2 PERFORMING LAB [facility] (test code = 7567719) Negative result for this test determines that [...] 564(g) of the Act.Fact Sheet for Healthcare Providers:https://www.Memopal/sites/default/files/product/documents/Fact_Shee z_WX_Zgyzfzfyh_Lmip_WOZX-QsB-7.pdfFact Sheet for Healthcare Patients:https://www.Memopal/sites/default/files/product/ documents/Icqd_Qvqyw_Xaseczwo_Unkt_WKDJ-TeH-2.pdfPerforming Laboratory:[address] [facility], [place] [address]KDAK-JWPUANE METER 2019-12-20 20:53:00 Test Item Value Reference Range Interpretation Comments POC-GLUCOSE METER 180 mg/dL 70-110 H : Notified RN/MD: (NOE) (test code = TESTED AT [facility] 6720 1538) [facility], [address]: Repairer Maintenance Building/Techni estefani ID = [id number] for KENROY LOPEZY POCT-GLUCOSE [id number] 16:41:00 Test Item Value Reference Range Interpretation Comments POC-GLUCOSE METER 167 mg/dL 70-110 H : TESTED A T [facility] 6720 (BEAKER) (test code [facility], = 1538) 20903: Repairer Maintenance Building/Techni estefani ID = [id number] for WILS ON, SHASTANIE POCT-GLUCOSE [id number] 12:02:00 Test Item Value Reference Range Interpretation Comments POC-GLUCOSE METER 158 mg/dL 70-110 H : TESTED A T [facility] 6720 (BEAKER) (test code [facility], = 1538) 78096: Repairer Maintenance Building/Techni estefani ID = [id number] for WILS ON, SHASTANIE POCT-GLUCOSE [id number] 07:49:00 Test Item Value Reference Range Interpretation Comments POC-GLUCOSE METER 116 mg/dL 70-110 H : TESTED A T [facility] 6720 (BEAKER) (test code [facility], = 1538) 49996: Repairer Maintenance Building/Techni estefani ID = [id number] for JOSELIN ESCALONA BASIC METABOLIC [id number] 06:52:00 Test Item Value Reference Range Interpretation [...] S NOT APPLICABLE FOR DIALYSIS PATIEN TS. Repairer Maintenance Building ID - JAQUELINE [id number] 06:40:00 Test Item Value Reference Range Interpretation Comments MAGNESIUM (BEAKER) (test code = 1.9 mg/dL 1.6-2.6 627) Repairer Maintenance Building ID - JAQUELINE MCBC W/PLT COUNT & AUTO [id number] 05:53:00 Test Item Value Reference Range Interpretation [...] PERCENT (BEAKER) (test code = 2801) POCT-GLUCOSE [id number] 20:47:00 Test Item Value Reference Range Interpretation Comments POC-GLUCOSE METER 221 mg/dL 70-110 H : Notified RN/MD: (NOE) (test code = TESTED AT [facility] 6740 7361) [facility], [address]: Repairer Maintenance Building/Techni estefani ID = [id number] for ENOCH LANG ELMIRA ANAEROBIC [id number] 20:08:00 Test Item Value Reference Range Interpretation Comments CULTURE (AKER) (test No anaerobes isolated code = 1095) POCT-GLUCOSE [id number] 16:36:00 Test Item Value Reference Range Interpretation Comments POC-GLUCOSE METER 190 mg/dL 70-110 H : TESTED A T [facility] 6720 (BEAKER) (test code [facility], = 1538) [address]: Repairer Maintenance Building/Techni estefani ID = [id number] for WILS ON, JOSEE POCT-GLUCOSE [id number] 09:20:00 Test Item Value Reference Range Interpretation Comments POC-GLUCOSE METER 106 mg/dL 70-110 : TESTED A T [facility] 6720 (BEAKER) (test code [facility], = 1538) [address]: Repairer Maintenance Building/Techni estefani ID = [id number] for WILS ON, SHASTANIE BASIC METABOLIC [id number] 05:49:00 Test Item Value Reference Range Interpretation [...] S NOT APPLICABLE FOR DIALYSIS PATIEN TS. Repairer Maintenance Building ID - JAQUELINE [id number] 05:48:00 Test Item Value Reference Range Interpretation Comments MAGNESIUM (BEAKER) (test code = 2.1 mg/dL 1.6-2.6 627) Repairer Maintenance Building ID - JAQUELINE MCBC W/PLT COUNT & AUTO [id number] 05:44:00 Test Item Value Reference Range Interpretation [...] % 0-1 PERCENT (BEAKER) (test code = 3011) POCT-GLUCOSE [id number] 20:14:00 Test Item Value Reference Range Interpretation Comments POC-GLUCOSE METER 181 mg/dL 70-110 H : TESTED A T [facility] 6720 (BEAKER) (test code = [facility] [place] Jose [facility], 1538) 69279: Repairer Maintenance Building/Techni estefani ID = [id number] for CR NELLI NOEL POCT-GLUCOSE [id number] 18:20:00 Test Item Value Reference Range Interpretation Comments POC-GLUCOSE METER 148 mg/dL 70-110 H : TESTED A T [facility] 6720 (BEAKER) (test code = [facility] [place] Jose [facility], 1538) 73160: Repairer Maintenance Building/Techni estefani ID = [id number] for GR AHAM, KAREN BASIC METABOLIC [id number] 06:50:00 Test Item Value Reference Range Interpretation [...] S NOT APPLICABLE FOR DIALYSIS PATIEN TS. Repairer Maintenance Building ID - [id number] 06:49:00 Test Item Value Reference Range Interpretation Comments MAGNESIUM (BEAKER) (test code = 2.0 mg/dL 1.6-2.6 627) Repairer Maintenance Building ID - EDASICBC W/PLT COUNT & AUTO [id number] 05:57:00 Test Item Value Reference Range Interpretation [...] PERCENT (BEAKER) (test code = 2801) POCT-GLUCOSE [id number] 20:12:00 Test Item Value Reference Range Interpretation Comments POC-GLUCOSE METER 217 mg/dL 70-110 H : TESTED A T [facility] 6720 (BEAKER) (test code = [facility] [place] Jose [facility], 1538) 69453: Repairer Maintenance Building/Techni estefani ID = [id number] for NELLI SHOOK POCT-GLUCOSE [id number] 14:00:00 Test Item Value Reference Range Interpretation Comments POC-GLUCOSE METER 97 mg/dL 70-110 : TESTED A T [facility] 6720 (BEAKER) (test code = [facility], 1538) 35929: Repairer Maintenance Building/Techni estefani ID = [id number] for JOSELIN ESCALONA BASIC METABOLIC [id number] 05:12:00 Test Item Value Reference Range Interpretation [...] S NOT APPLICABLE FOR DIALYSIS PATIEN TS. Repairer Maintenance Building ID - JAQUELINE [id number] 05:09:00 Test Item Value Reference Range Interpretation Comments MAGNESIUM (BEAKER) (test code = 2.1 mg/dL 1.6-2.6 627) Repairer Maintenance Building ID - JAQUELINE MCBC W/PLT COUNT & AUTO [id number] 04:38:00 Test Item Value Reference Range Interpretation [...] PERCENT (BEAKER) (test code = 2801) POCT-GLUCOSE [id number] 21:09:00 Test Item Value Reference Range Interpretation Comments POC-GLUCOSE METER 156 mg/dL 70-110 H : TESTED A T [facility] 6720 (BEAKER) (test code = DASIA Garcia [facility], 1538) 60619: Repairer Maintenance Building/Techni estefani ID = [id number] for ROSIO DUFF POCT-GLUCOSE [id number] 16:53:00 Test Item Value Reference Range Interpretation Comments POC-GLUCOSE METER 135 mg/dL 70-110 H : TESTED A T [facility] 6720 (BEAKER) (test code [facility], = 1538) 35191: Repairer Maintenance Building/Techni estefani ID = [id number] for JOSELIN ESCALONA POCT-GLUCOSE [id number] 11:36:00 Test Item Value Reference Range Interpretation Comments POC-GLUCOSE METER 115 mg/dL 70-110 H : TESTED A T [facility] 6720 (BEAKER) (test code [facility], = 1538) 30418: Repairer Maintenance Building/Techni estefani ID = [id number] for WILS ONJOSELIN SURGICALLY OBTAINED CULTURE + GRAM [id number] 08:39:00 Test Item Value Reference Range Interpretation [...] gram negative (BEAKER) (test code = rods 693016) POCT-GLUCOSE [id number] 07:57:00 Test Item Value Reference Range Interpretation Comments POC-GLUCOSE METER 75 mg/dL 70-110 : TESTED A T [facility] 6720 (BEAKER) (test code = DASIA [place], 1538) 14830: Repairer Maintenance Building/Techni estefani ID = [id number] for JOSELIN ESCALONA CBC W/PLT COUNT & AUTO [id number] 06:19:00 Test Item Value Reference Range Interpretation [...] (BEAKER) (test code = 2801) BASIC METABOLIC [id number] 06:14:00 Test Item Value Reference Range Interpretation [...] S NOT APPLICABLE FOR DIALYSIS PATIEN TS. Repairer Maintenance Building ID - DANITZA [id number] 06:13:00 Test Item Value Reference Range Interpretation Comments MAGNESIUM (BEAKER) (test code = 2.1 mg/dL 1.6-2.6 627) Repairer Maintenance Building ID - DANITZA LPOCT-GLUCOSE [id number] 20:21:00 Test Item Value Reference Range Interpretation Comments POC-GLUCOSE METER 188 mg/dL 70-110 H : TESTED A T [facility] 6720 (BEAKER) (test code = [facility], 153) 16057: Repairer Maintenance Building/Techni estefani ID = [id number] for Ch andran, Nikki POCT-GLUCOSE [id number] 16:41:00 Test Item Value Reference Range Interpretation Comments POC-GLUCOSE METER 110 mg/dL 70-110 : TESTED A T [facility] 6720 (BEAKER) (test code [facility], = 1538) 58464: Repairer Maintenance Building/Techni estefani ID = [id number] for WILS ON, SHASTANIE POCT-GLUCOSE [id number] 12:03:00 Test Item Value Reference Range Interpretation Comments POC-GLUCOSE METER 82 mg/dL 70-110 : TESTED A T [facility] 6720 (BEAKER) (test code = [facility], 1538) 99585: Repairer Maintenance Building/Techni estefani ID = [id number] for WILS ON, SHASTANIE POCT-GLUCOSE [id number] 07:12:00 Test Item Value Reference Range Interpretation Comments POC-GLUCOSE METER 86 mg/dL 70-110 : TESTED A T [facility] 6720 (BEAKER) (test code = D[facility] [place], 1538) 34371: Repairer Maintenance Building/Techni estefani ID = [id number] for JOSELIN ESCALONA BASIC METABOLIC [id number] 05:40:00 Test Item Value Reference Range Interpretation [...] S NOT APPLICABLE FOR DIALYSIS PATIEN TS. [id number] 05:38:00 Test Item Value Reference Range Interpretation Comments MAGNESIUM (BEAKER) (test code = 2.0 mg/dL 1.6-2.6 627) CBC W/PLT COUNT & AUTO [id number] 05:07:00 Test Item Value Reference Range Interpretation [...] PERCENT (BEAKER) (test code = 2801) POCT-GLUCOSE [id number] 20:33:00 Test Item Value Reference Range Interpretation Comments POC-GLUCOSE METER 218 mg/dL 70-110 H : TESTED Vikas Velásquez [facility] 6720 (BEAKER) (test code = [facility] [place], 1538) 62668: Repairer Maintenance Building/Techni estefani ID = [id number] for PHIL MURRELL TTE POCT-GLUCOSE [id number] 17:47:00 Test Item Value Reference Range Interpretation Comments POC-GLUCOSE METER 122 mg/dL 70-110 H : TESTED A T [facility] 6720 (BEAKER) (test code [facility], = 1538) 81129: Repairer Maintenance Building/Techni estefani ID = [id number] for WILS ON, JORGESTGUSE POCT-GLUCOSE [id number] 11:53:00 Test Item Value Reference Range Interpretation Comments POC-GLUCOSE METER 93 mg/dL 70-110 : TESTED A T [facility] 6720 (BEAKER) (test code = [facility], 1538) 71352: Repairer Maintenance Building/Techni estefani ID = [id number] for WILS ON, SHASTANIE POCT-GLUCOSE [id number] 08:26:00 Test Item Value Reference Range Interpretation Comments POC-GLUCOSE METER 93 mg/dL 70-110 : TESTED A T [facility] 6720 (BEAKER) (test code = [facility], 1538) 15043: Repairer Maintenance Building/Techni estefani ID = [id number] for WILS ON, SHASTANIE BASIC METABOLIC [id number] 04:43:00 Test Item Value Reference Range Interpretation [...] S NOT APPLICABLE FOR DIALYSIS PATIEN TS. Repairer Maintenance Building ID - [id number] 04:33:00 Test Item Value Reference Range Interpretation Comments MAGNESIUM (BEAKER) (test code = 2.1 mg/dL 1.6-2.6 627) Repairer Maintenance Building ID - EDASICBC W/PLT COUNT & AUTO [id number] 04:11:00 Test Item Value Reference Range Interpretation [...] PERCENT (BEAKER) (test code = 2801) POCT-GLUCOSE [id number] 21:01:00 Test Item Value Reference Range Interpretation Comments POC-GLUCOSE METER 159 mg/dL 70-110 H : TESTED A T [facility] 6720 (BEAKER) (test code = [facility], 1538) 46052: Repairer Maintenance Building/Techni estefani ID = [id number] for Alexia Vivas POCT-GLUCOSE [id number] 17:01:00 Test Item Value Reference Range Interpretation Comments POC-GLUCOSE METER 149 mg/dL 70-110 H : TESTED A T [facility] 6720 (BEAKER) (test code = [facility], [facility]8) 02003: Repairer Maintenance Building/Techni estefani ID = [id number] for IAIN EASTON POCT-GLUCOSE [id number] 12:36:00 Test Item Value Reference Range Interpretation Comments POC-GLUCOSE METER 127 mg/dL 70-110 H : TESTED A T [facility] 6720 (BEAKER) (test code = [facility], 1538) 69866: Repairer Maintenance Building/Techni estefani ID = [id number] for ANGEL HILLS POCT-GLUCOSE [id number] 08:18:00 Test Item Value Reference Range Interpretation Comments POC-GLUCOSE METER 75 mg/dL 70-110 : TESTED A T [facility] 6720 (BEAKER) (test code = [facility], [facility]8) 92984: Repairer Maintenance Building/Techni estefani ID = [id number] for IAIN DEXTER HEMOGLOBIN [id number] 08:08:00 Test Item Value Reference Range Interpretation Comments HEMOGLOBIN A1C (BEAKER) (test code = 5.9 % 4.3-6.1 368) BASIC METABOLIC [id number] 06:38:00 Test Item Value Reference Range Interpretation [...] S NOT APPLICABLE FOR DIALYSIS PATIEN TS. Repairer Maintenance Building ID - JAQUELINE [id number] 06:32:00 Test Item Value Reference Range Interpretation Comments MAGNESIUM (BEAKER) (test code = 2.0 mg/dL 1.6-2.6 627) Repairer Maintenance Building ID - JAQUELINE MCBC W/PLT COUNT & AUTO [id number] 06:04:00 Test Item Value Reference Range Interpretation [...] PERCENT (BEAKER) (test code = 2801) SARS-COV2/RT-PCR ([facility])2019-12-13 05:48:00 Test Item Value Reference Range Interpretation Comments SARS-COV2/RT-PCR (test Negative Not Detected, Negative, code = 6163717) See external report for linked test SARS-COV-2 PERFORMING LAB [facility] (test code = 5313421) Negative result for this test determines that [...] 564(g) of the Act.Fact Sheet for Healthcare Providers:https://www.Memopal/sites/default/files/product/documents/Fact_Shee j_FM_Piccchwcp_Tffq_YRVK-YxC-2.pdfFact Sheet for Healthcare Patients:https://www.Memopal/sites/default/files/product/ documents/Coxs_Fovxd_Wbxbmvra_Jvcp_VQKK-ZmM-8.pdfPerforming Laboratory:[facility], [place] [id number] METER 2019-12-12 20:52:00 Test Item Value Reference Range Interpretation Comments POC-GLUCOSE METER 123 mg/dL 70-110 H : [facility] (Campus Shift) (test code = [facility], 1538) 02942: Repairer Maintenance Building/Techni estefani ID = [id number] for Alexia Vivas POCT-GLUCOSE [id number] 16:14:00 Test Item Value Reference Range Interpretation Comments POC-GLUCOSE METER 175 mg/dL 70-110 H : TESTED A T [facility] 6720 (Campus Shift) (test code = [facility] [place] Jose [facility], 1538) 70079: Repairer Maintenance Building/Techni estefani ID = [id number] for IAIN EASTON POCT-GLUCOSE [id number] 13:41:00 Test Item Value Reference Range Interpretation Comments POC-GLUCOSE METER 145 mg/dL 70-110 H : TESTED A T [facility] 6720 (BEAKER) (test code = [facility], 1538) 41006: Repairer Maintenance Building/Techni estefani ID = [id number] for BLADIMIR MELISSA VANCOMYCIN LEVEL, [id number] 05:00:00 Test Item Value Reference Range Interpretation Comments VANCOMYCIN RANDOM (BEAKER) (test 17.3 ug/mL code = 523) Reference Range: No NormalsOperator ID - JAQUELINE MSPIN/CONCENTRATION CHARGE 2019-12-12 04:16:00 Test Item Value Reference Range Interpretation Comments CONCENTRATION CHARGED (BEAKER) (test Done code = 2657) POCT-GLUCOSE [id number] 20:36:00 Test Item Value Reference Range Interpretation Comments POC-GLUCOSE METER 80 mg/dL 70-110 : TESTED A T [facility] 6720 (BEAKER) (test code = [facility], 1538) 74945: Repairer Maintenance Building/Techni estefani ID = [id number] for ABDOULAYERohit ELIZABETH PUENTES POCT-GLUCOSE [id number] 16:43:00 Test Item Value Reference Range Interpretation Comments POC-GLUCOSE METER 88 mg/dL 70-110 : TESTED A T [facility] 6720 (BEAKER) (test code = [facility], 1538) 68552: Repairer Maintenance Building/Techni estefani ID = [id number] for HURST-ROHIT KRYSTAL POCT-GLUCOSE [id number] 14:06:00 Test Item Value Reference Range Interpretation Comments POC-GLUCOSE METER 78 mg/dL 70-110 : TESTED A T [facility] 6720 (BEAKER) (test code = [facility], 1538) 74889: Repairer Maintenance Building/Techni estefani ID = [id number] for HURST-BEE, KRYSTAL POCT-GLUCOSE [id number] 11:19:00 Test Item Value Reference Range Interpretation Comments POC-GLUCOSE METER 93 mg/dL 70-110 : TESTED A T [facility] 6720 (BEAKER) (test code = [facility], 1538) 27339: Repairer Maintenance Building/Techni estefani ID = [id number] for ROSE CHAVEZ BASIC METABOLIC [id number] 04:38:00 Test Item Value Reference Range Interpretation [...] S NOT APPLICABLE FOR DIALYSIS PATIEN TS. Repairer Maintenance Building ID - EDASICBC W/PLT COUNT & AUTO [id number] 04:14:00 Test Item Value Reference Range Interpretation [...] PERCENT (BEAKER) (test code = 2801) BLOOD [id number] 02:00:00 Test Item Value Reference Range Interpretation Comments CULTURE ([facility]) (test No growth in 5 days code = 1095) POCT-GLUCOSE [id number] 20:48:00 Test Item Value Reference Range Interpretation Comments POC-GLUCOSE METER 192 mg/dL 70-110 H : Notified RN/MD: (NOE) (test code = TESTED AT [facility] 67 1537) [facility], 98449: Repairer Maintenance Building/Techni estefani ID = [id number] for ENOCH LANG ELMIRA POCT-GLUCOSE [id number] 17:27:00 Test Item Value Reference Range Interpretation Comments POC-GLUCOSE METER 96 mg/dL 70-110 : TESTED A T [facility] 6720 ([facility]) (test [facility] = [facility], 153) 19932: Repairer Maintenance Building/Techni estefani ID = [id number] for JOSELIN ESCALONA POCT-GLUCOSE [id number] 16:31:00 Test Item Value Reference Range Interpretation Comments POC-GLUCOSE METER 91 mg/dL 70-110 : TESTED A T [facility] 6720 (BEAKER) (test code = [facility], [facility]) 92954: Repairer Maintenance Building/Techni estefani ID = [id number] for EVONNE GARCIA VIAL POCT-GLUCOSE [id number] 11:42:00 Test Item Value Reference Range Interpretation Comments POC-GLUCOSE METER 91 mg/dL 70-110 : TESTED A T [facility] 6720 (BEAKER) (test code = [facility], [facility]8) 28324: Repairer Maintenance Building/Techni estefani ID = [id number] for WILS ON, SHASTANIE POCT-GLUCOSE [id number] 08:18:00 Test Item Value Reference Range Interpretation Comments POC-GLUCOSE METER 95 mg/dL 70-110 : TESTED A T [facility] 6720 (BEAKER) (test code = [facility], [facility]) 14140: Repairer Maintenance Building/Techni estefani ID = [id number] for WILS ON, SHASTANIE POCT-GLUCOSE [id number] 21:34:00 Test Item Value Reference Range Interpretation Comments POC-GLUCOSE METER 135 mg/dL 70-110 H : TESTED A T [facility] 6720 (BEAKER) (test code = [facility], [facility]8) 12016: Repairer Maintenance Building/Techni estefani ID = [id number] for PHIL MURRELL TTE POCT-GLUCOSE [id number] 16:56:00 Test Item Value Reference Range Interpretation Comments POC-GLUCOSE METER 140 mg/dL 70-110 H : TESTED A T [facility] 6720 (BEAKER) (test code = [facility], [facility]) 66189: Repairer Maintenance Building/Techni estefani ID = [id number] for AGUSTÍN GUTIERREZ, IAIN POCT-GLUCOSE [id number] 11:38:00 Test Item Value Reference Range Interpretation Comments POC-GLUCOSE METER 126 mg/dL 70-110 H : TESTED A T [facility] 6720 (BEAKER) (test code = [facility], [facility]) 09329: Repairer Maintenance Building/Techni estefani ID = [id number] for AGUSTÍN GUTIERREZ, IAIN POCT-GLUCOSE [id number] 07:31:00 Test Item Value Reference Range Interpretation Comments POC-GLUCOSE METER 63 mg/dL 70-110 L : TESTED A T [facility] 6720 (BEAKER) (test code = [facility], 153) 42263: Repairer Maintenance Building/Techni estefani ID = [id number] for IAIN DEXTER POCT-GLUCOSE [id number] 21:32:00 Test Item Value Reference Range Interpretation Comments POC-GLUCOSE METER 144 mg/dL 70-110 H : TESTED A T [facility] 6720 (BEAKER) (test code = [facility], 153) 02346: Repairer Maintenance Building/Techni estefani ID = [id number] for MURRELLPHIL MORAES TTE POCT-GLUCOSE [id number] 17:06:00 Test Item Value Reference Range Interpretation Comments POC-GLUCOSE METER 95 mg/dL 70-110 : TESTED A T [facility] 6720 (BEAKER) (test code = [facility], 153) 74236: Repairer Maintenance Building/Techni estefani ID = [id number] for IAIN DEXTER POCT-GLUCOSE [id number] 12:40:00 Test Item Value Reference Range Interpretation Comments POC-GLUCOSE METER 153 mg/dL 70-110 H : TESTED A T [facility] 6720 (BEAKER) (test code = [facility], 153) 80781: Repairer Maintenance Building/Techni estefani ID = [id number] for IAIN EASTON POCT-GLUCOSE [id number] 07:26:00 Test Item Value Reference Range Interpretation Comments POC-GLUCOSE METER 103 mg/dL 70-110 : TESTED A T [facility] 6720 (BEAKER) (test code = [facility], 153) 35278: Repairer Maintenance Building/Techni estefani ID = [id number] for IAIN EASTON BASIC METABOLIC [id number] 05:34:00 Test Item Value Reference Range Interpretation [...] S NOT APPLICABLE FOR DIALYSIS PATIEN TS. Repairer Maintenance Building ID - PIAYA LCBC W/PLT COUNT & AUTO [id number] 04:04:00 Test Item Value Reference Range Interpretation [...] PERCENT (BEAKER) (test code = 2801) POCT-GLUCOSE [id number] 21:37:00 Test Item Value Reference Range Interpretation Comments POC-GLUCOSE METER 251 mg/dL 70-110 H : [facility] (test code = [facility]) 96693: Repairer Maintenance Building/Techni estefani ID = [id number] for MURRELL, PHIL TTE POCT-GLUCOSE [id number] 17:54:00 Test Item Value Reference Range Interpretation Comments POC-GLUCOSE METER 108 mg/dL 70-110 : TESTED A T [facility] 6720 (BEAKER) (test code = [facility], 1538) 89599: Repairer Maintenance Building/Techni estefani ID = [id number] for So sydnee, Avery POCT-GLUCOSE [id number] 11:57:00 Test Item Value Reference Range Interpretation Comments POC-GLUCOSE METER 85 mg/dL 70-110 : TESTED A T [facility] 6720 (BEAKER) (test code = [facility], 1538) 80335: Repairer Maintenance Building/Techni estefani ID = [id number] for MOI DEXTERENNE POCT-GLUCOSE [id number] 08:11:00 Test Item Value Reference Range Interpretation Comments POC-GLUCOSE METER 66 mg/dL 70-110 L : TESTED A T [facility] 6720 (BEAKER) (test code = [facility], 1538) 79463: Repairer Maintenance Building/Techni estefani ID = [id number] for HEAR NE, IAIN FUNGUS CULTURE + [id number] 15:59:00 Test Item Value Reference Range Interpretation Comments CULTURE (BEAKER) (test No fungus isolated in code = 1095) 28 days FUNGUS SMEAR (BEAKER) No fungi seen (test code = 1406) POCT-GLUCOSE [id number] 15:44:00 Test Item Value Reference Range Interpretation Comments POC-GLUCOSE METER 97 mg/dL 70-110 : [facility] (test code = DASIA Garcia [place], 1538) 60678: Repairer Maintenance Building/Techni estefani ID = [id number] for QUEEN SWANSON POCT-GLUCOSE [id number] 10:44:00 Test Item Value Reference Range Interpretation Comments POC-GLUCOSE METER 71 mg/dL 70-110 : TESTED A T [facility] 6720 (BEAKER) (test code = DASIA Garcia [facility], 1538) 53264: Repairer Maintenance Building/Techni estefani ID = [id number] for QUEEN SWANSON SARS-COV2/RT-PCR ([facility])2019-12-06 08:14:00 Test Item Value Reference Range Interpretation Comments SARS-COV2/RT-PCR (test Negative Not Detected, Negative, code = 1354405) See external report for linked test SARS-COV-2 PERFORMING LAB [facility] (test code = 5307511) Negative result for this test determines that [...] 564(g) of the Act.Fact Sheet for Healthcare Providers:https://www.Memopal/sites/default/files/product/documents/Fact_Shee r_JG_Tendgqmoq_Buwr_ONHI-KjI-4.pdfFact Sheet for Healthcare Patients:https://www.Memopal/sites/default/files/product/ documents/Sngx_Jqyto_Vucykczl_Eyri_JWZI-GkO-6.pdfPerforming Laboratory:[facility], [place] [address]GVQD-JQFTOKA METER 2019-12-06 08:03:00 Test Item Value Reference Range Interpretation Comments POC-GLUCOSE METER 68 mg/dL 70-110 L : TESTED A T [facility] 6720 (BEAKER) (test code = DASIA Garcia [facility], 1538) 17250: Repairer Maintenance Building/Techni estefani ID = [id number] for QUEEN SWANSON BASIC METABOLIC [id number] 07:45:00 Test Item Value Reference Range Interpretation [...] S NOT APPLICABLE FOR DIALYSIS PATIEN TS. Repairer Maintenance Building ID - [id number] 07:30:00 Test Item Value Reference Range Interpretation Comments PHOSPHORUS (BEAKER) (test code = 4.8 mg/dL 2.3-4.7 H 604) Repairer Maintenance Building ID - [id number] 07:30:00 Test Item Value Reference Range Interpretation Comments MAGNESIUM (BEAKER) (test code = 2.4 mg/dL 1.6-2.6 627) Repairer Maintenance Building ID - EDASICBC W/PLT COUNT & AUTO [id number] 07:19:00 Test Item Value Reference Range Interpretation [...] PERCENT (BEAKER) (test code = 2801) PROTHROMBIN [id number] 06:53:00 Test Item Value Reference Range Interpretation [...] is2.5-3.5 for patients wiht mechanical heart valves.POCT-GLUCOSE [id number] 21:16:00 Test Item Value Reference Range Interpretation Comments POC-GLUCOSE METER 257 mg/dL 70-110 H : TESTED A T [facility] 6720 (Campus Shift) (test code = [facility] [place], 1538) 80233: Repairer Maintenance Building/Techni estefani ID = [id number] for PHIL MURRELL TTE POCT-GLUCOSE [id number] 21:21:00 Test Item Value Reference Range Interpretation Comments POC-GLUCOSE METER 247 mg/dL 70-110 H : TESTED A T [facility] 6720 (BEAKER) (test code = [facility], [facility]) 23156: Repairer Maintenance Building/Techni estefani ID = [id number] for SA HIGGINS, CRYSTAL POCT-GLUCOSE [id number] 12:32:00 Test Item Value Reference Range Interpretation Comments POC-GLUCOSE METER 95 mg/dL 70-110 : TESTED A T [facility] 6720 (BEAKER) (test code = [facility], [facility]) 20630: Repairer Maintenance Building/Techni estefani ID = [id number] for QUANG OS, JACOB POCT-GLUCOSE [id number] 08:26:00 Test Item Value Reference Range Interpretation Comments POC-GLUCOSE METER 98 mg/dL 70-110 : TESTED A T [facility] 6720 (BEAKER) (test code = [facility], [facility]) 49546: Repairer Maintenance Building/Techni estefani ID = [id number] for QUANG OS, JACOB POCT-GLUCOSE [id number] 21:54:00 Test Item Value Reference Range Interpretation Comments POC-GLUCOSE METER 153 mg/dL 70-110 H : TESTED A T [facility] (BEAKER) (test code = [facility], [facility]) [id number]: Repairer Maintenance Building/Techni estefani ID = [id number] for UL LATTIL, SJ POCT-GLUCOSE [id number] 17:04:00 Test Item Value Reference Range Interpretation Comments POC-GLUCOSE METER 194 mg/dL 70-110 H : TESTED A T [facility] (BEAKER) (test code = [facility], [facility]) [id number]: Repairer Maintenance Building/Techni estefani ID = [id number] for HIGGINS BLET, JANIE POCT-GLUCOSE [id number] 12:29:00 Test Item Value Reference Range Interpretation Comments POC-GLUCOSE METER 162 mg/dL 70-110 H : TESTED A T [facility] (BEAKER) (test code = [facility], [facility]) [id number]: Repairer Maintenance Building/Techni estefani ID = [id number] for HIGGINS BLET, JANIE POCT-GLUCOSE [id number] 09:42:00 Test Item Value Reference Range Interpretation Comments POC-GLUCOSE METER 178 mg/dL 70-110 H : TESTED A T [facility] 67[facility] (BEAKER) (test code = [facility], 1538) [id number]: Repairer Maintenance Building/Techni estefani ID = [id number] for NG JOSE, TYRONE POCT-GLUCOSE [id number] 07:19:00 Test Item Value Reference Range Interpretation Comments POC-GLUCOSE METER 115 mg/dL 70-110 H : TESTED A T [facility] 6720 (BEAKER) (test code = [facility], 153) 05909: Repairer Maintenance Building/Techni estefani ID = [id number] for UL LATTIL, SJ CREATINE KINASE (CK)2019-11-29 06:25:00 Test Item Value Reference Range Interpretation Comments CREATINE KINASE TOTAL (BEAKER) (test 249 U/L 29-200 H code = 380) Repairer Maintenance Building ID - JAQUELINE MPOCT-GLUCOSE [id number] 21:03:00 Test Item Value Reference Range Interpretation Comments POC-GLUCOSE METER 157 mg/dL 70-110 H : TESTED A T [facility] 6720 (BEAKER) (test code = [facility], [facility]8) 69873: Repairer Maintenance Building/Techni estefani ID = [id number] for UL LATTIL, SJ POCT-GLUCOSE [id number] 18:26:00 Test Item Value Reference Range Interpretation Comments POC-GLUCOSE METER 136 mg/dL 70-110 H : TESTED A T [facility] 6720 (BEAKER) (test code = [facility], 153) 20851: Repairer Maintenance Building/Techni estefani ID = [id number] for NG JOSE, TYRONE POCT-GLUCOSE [id number] 11:59:00 Test Item Value Reference Range Interpretation Comments POC-GLUCOSE METER 160 mg/dL 70-110 H : TESTED A T [facility] 6720 (BEAKER) (test code = [facility], 153) 52963: Repairer Maintenance Building/Techni estefani ID = [id number] for FA ITH, GUNNER POCT-GLUCOSE [id number] 08:00:00 Test Item Value Reference Range Interpretation Comments POC-GLUCOSE METER 89 mg/dL 70-110 : TESTED A T [facility] 6720 (BEAKER) (test code = [facility], 1538) 63726: Repairer Maintenance Building/Techni estefani ID = [id number] for FAIT H, GUNNER BASIC METABOLIC [id number] 04:43:00 Test Item Value Reference Range Interpretation [...] S NOT APPLICABLE FOR DIALYSIS PATIEN TS. Repairer Maintenance Building ID - BSCBC W/PLT COUNT & AUTO [id number] 04:35:00 Test Item Value Reference Range Interpretation [...] PERCENT (BEAKER) (test code = 2801) POCT-GLUCOSE [id number] 21:07:00 Test Item Value Reference Range Interpretation Comments POC-GLUCOSE METER 146 mg/dL 70-110 H : TESTED A T [facility] 6720 (BEAKER) (test code = [facility], 153) 43065: Repairer Maintenance Building/Techni estefani ID = [id number] for JAD SALGUERO POCT-GLUCOSE [id number] 17:47:00 Test Item Value Reference Range Interpretation Comments POC-GLUCOSE METER 138 mg/dL 70-110 H : TESTED A T [facility] 6720 (BEAKER) (test code = [facility], 1538) 79811: Repairer Maintenance Building/Techni estefani ID = [id number] for SA NTOS, JACOB POCT-GLUCOSE [id number] 12:12:00 Test Item Value Reference Range Interpretation Comments POC-GLUCOSE METER 157 mg/dL 70-110 H : TESTED A T [facility] 6720 (BEAKER) (test code = [facility], 1538) 98307: Repairer Maintenance Building/Techni estefani ID = [id number] for JACOB LYLES POCT-GLUCOSE [id number] 09:04:00 Test Item Value Reference Range Interpretation Comments POC-GLUCOSE METER 142 mg/dL 70-110 H : TESTED A T [facility] 6720 (BEAKER) (test code = [facility] [place], 1538) 35126: Repairer Maintenance Building/Techni estefani ID = [id number] for JACOB LYLES BASIC METABOLIC [id number] 05:51:00 Test Item Value Reference Range Interpretation [...] S NOT APPLICABLE FOR DIALYSIS PATIEN TS. Repairer Maintenance Building ID - BSCBC W/PLT COUNT & AUTO [id number] 05:17:00 Test Item Value Reference Range Interpretation [...] PERCENT (BEAKER) (test code = 2801) POCT-GLUCOSE [id number] 21:20:00 Test Item Value Reference Range Interpretation Comments POC-GLUCOSE METER 136 mg/dL 70-110 H : TESTED Vikas Velásquez [facility] 6720 (BEAKER) (test code = [facility] [place], 1538) 98389: Repairer Maintenance Building/Techni estefani ID = [id number] for CRYSTAL RANGEL POCT-GLUCOSE [id number] 17:34:00 Test Item Value Reference Range Interpretation Comments POC-GLUCOSE METER 205 mg/dL 70-110 H : TESTED A T [facility] 6720 (BEAKER) (test code = [facility], 1538) 97221: Repairer Maintenance Building/Techni estefani ID = [id number] for JACOB LYLES POCT-GLUCOSE [id number] 11:22:00 Test Item Value Reference Range Interpretation Comments POC-GLUCOSE METER 98 mg/dL 70-110 : TESTED A T [facility] 6720 (BEAKER) (test code = [facility], 1538) 27633: Repairer Maintenance Building/Techni estefani ID = [id number] for Avery Mendoza POCT-GLUCOSE [id number] 08:07:00 Test Item Value Reference Range Interpretation Comments POC-GLUCOSE METER 117 mg/dL 70-110 H : TESTED A T [facility] 6720 (BEAKER) (test code = [facility], 1538) 68607: Repairer Maintenance Building/Techni estefani ID = [id number] for JANIE KAUR CBC W/PLT COUNT & AUTO [id number] 05:21:00 Test Item Value Reference Range Interpretation [...] (BEAKER) (test code = 2801) BASIC METABOLIC [id number] 05:17:00 Test Item Value Reference Range Interpretation [...] S NOT APPLICABLE FOR DIALYSIS PATIEN TS. Repairer Maintenance Building ID - DBPOCT-GLUCOSE [id number] 21:45:00 Test Item Value Reference Range Interpretation Comments POC-GLUCOSE METER 144 mg/dL 70-110 H : TESTED A T [facility] 6720 (BEAKER) (test code = [facility], [facility]8) 51100: Repairer Maintenance Building/Techni estefani ID = [id number] for UL LATTIL, SJ POCT-GLUCOSE [id number] 17:16:00 Test Item Value Reference Range Interpretation Comments POC-GLUCOSE METER 134 mg/dL 70-110 H : TESTED A T [facility] 6720 (BEAKER) (test code = [facility], [facility]8) 55178: Repairer Maintenance Building/Techni estefani ID = [id number] for FA ITH, GUNNER POCT-GLUCOSE [id number] 12:00:00 Test Item Value Reference Range Interpretation Comments POC-GLUCOSE METER 120 mg/dL 70-110 H : TESTED A T [facility] 6720 (BEAKER) (test code = [facility], [facility]8) 94644: Repairer Maintenance Building/Techni estefani ID = [id number] for FA ITH, GUNNER POCT-GLUCOSE [id number] 08:04:00 Test Item Value Reference Range Interpretation Comments POC-GLUCOSE METER 74 mg/dL 70-110 : TESTED A T [facility] 6720 (BEAKER) (test code = [facility], [facility]8) 28377: Repairer Maintenance Building/Techni estefani ID = [id number] for FAIT H, GUNNER POCT-GLUCOSE [id number] 21:31:00 Test Item Value Reference Range Interpretation Comments POC-GLUCOSE METER 155 mg/dL 70-110 H : TESTED A T [facility] 6720 (BEAKER) (test code = [facility], 1538) 03660: Repairer Maintenance Building/Techni estefani ID = [id number] for UL LATTIL, SJ POCT-GLUCOSE [id number] 17:03:00 Test Item Value Reference Range Interpretation Comments POC-GLUCOSE METER 127 mg/dL 70-110 H : TESTED A T [facility] 6720 (BEAKER) (test code = [facility], [facility]8) 46434: Repairer Maintenance Building/Techni estefani ID = [id number] for FA ITH, GUNNER POCT-GLUCOSE [id number] 12:28:00 Test Item Value Reference Range Interpretation Comments POC-GLUCOSE METER 147 mg/dL 70-110 H : TESTED A T [facility] 6720 (BEAKER) (test code = [facility], [facility]) 87789: Repairer Maintenance Building/Techni estefani ID = [id number] for FA ITH, GUNNER POCT-GLUCOSE [id number] 08:06:00 Test Item Value Reference Range Interpretation Comments POC-GLUCOSE METER 107 mg/dL 70-110 : TESTED A T [facility] 6720 (BEAKER) (test code = [facility], [facility]8) 55744: Repairer Maintenance Building/Techni estefani ID = [id number] for FA ITH, GUNNER POCT-GLUCOSE [id number] 21:07:00 Test Item Value Reference Range Interpretation Comments POC-GLUCOSE METER 179 mg/dL 70-110 H : TESTED A T [facility] 6720 (BEAKER) (test code = [facility], [facility]) 26586: Repairer Maintenance Building/Techni estefani ID = [id number] for UL LATTIL, SJ POCT-GLUCOSE [id number] 17:04:00 Test Item Value Reference Range Interpretation Comments POC-GLUCOSE METER 201 mg/dL 70-110 H : TESTED A T [facility] 6720 (BEAKER) (test code = [facility], [facility]) 92224: Repairer Maintenance Building/Techni estefani ID = [id number] for FA ITH, GUNNER POCT-GLUCOSE [id number] 12:29:00 Test Item Value Reference Range Interpretation Comments POC-GLUCOSE METER 110 mg/dL 70-110 : TESTED A T [facility] 6720 (BEAKER) (test code = [facility], [facility]) 86520: Repairer Maintenance Building/Techni estefani ID = [id number] for Lillian randhawa Avery SARS-COV2/RT-PCR ([facility])2019-11-23 11:35:00 Test Item Value Reference Range Interpretation Comments SARS-COV2/RT-PCR (test Negative Not Detected, Negative, code = 4453744) See external report for linked test SARS-COV-2 PERFORMING LAB [facility] (test code = 8188204) Negative result for this test determines that [...] 564(g) of the Act.Fact Sheet for Healthcare Providers:https://www.EventTool.[facility]/sites/default/files/product/documents/Fact_Shee m_UR_Meoevyzfi_Vucj_TYOP-IwU-7.pdfFact Sheet for Healthcare Patients:https://www.[employer]Tool.com/sites/default/files/product/ documents/Koyo_Ujkes_Lkyzenfg_Gdzf_JDDU-QuS-4.pdfPerforming Laboratory:[facility], [place] [id number] METER 2019-11-23 08:05:00 Test Item Value Reference Range Interpretation Comments POC-GLUCOSE METER 92 mg/dL 70-110 : TESTED A T [facility] 6720 (NOE) (test code = [facility] [place], 1538) 20912: Repairer Maintenance Building/Techni estefani ID = [id number] for GUNNER MUHAMMAD POCT-GLUCOSE [id number] 21:46:00 Test Item Value Reference Range Interpretation Comments POC-GLUCOSE METER 145 mg/dL 70-110 H : TESTED A T [facility] 6720 (BEAKER) (test code = [facility], 1538) 07263: Repairer Maintenance Building/Techni estefani ID = [id number] for CA RBAJAL, TIMA POCT-GLUCOSE [id number] 17:51:00 Test Item Value Reference Range Interpretation Comments POC-GLUCOSE METER 180 mg/dL 70-110 H : TESTED A T [facility] 6720 (BEAKER) (test code = [facility], [facility]8) 51214: Repairer Maintenance Building/Techni estefani ID = [id number] for SA NTOS, JACOB POCT-GLUCOSE [id number] 11:57:00 Test Item Value Reference Range Interpretation Comments POC-GLUCOSE METER 151 mg/dL 70-110 H : TESTED A T [facility] 6720 (BEAKER) (test code = [facility], [facility]8) 54445: Repairer Maintenance Building/Techni estefani ID = [id number] for SA NTOS, JACOB POCT-GLUCOSE [id number] 08:07:00 Test Item Value Reference Range Interpretation Comments POC-GLUCOSE METER 110 mg/dL 70-110 : TESTED A T [facility] 6720 (BEAKER) (test code = [facility], [facility]8) 52589: Repairer Maintenance Building/Techni estefani ID = [id number] for SA NTOS, JACOB CREATINE KINASE (CK)2019-11-22 05:38:00 Test Item Value Reference Range Interpretation Comments CREATINE KINASE TOTAL (BEAKER) (test 57 U/L 29-200 code = 380) Repairer Maintenance Building ID - PIAYA LPOCT-GLUCOSE [id number] 21:49:00 Test Item Value Reference Range Interpretation Comments POC-GLUCOSE METER 171 mg/dL 70-110 H : TESTED A T [facility] 6720 (BEAKER) (test code = [facility], [facility]8) 98219: Repairer Maintenance Building/Techni estefani ID = [id number] for CA RBAJAL, TIMA ANAEROBIC [id number] 18:36:00 Test Item Value Reference Range Interpretation Comments CULTURE (BEAKER) (test No anaerobes isolated code = 1095) HEPATITIS B SURFACE [id number] 17:43:00 Test Item Value Reference Range Interpretation Comments HEPATITIS B SURFACE ANTIGEN (2) Nonreactive Nonreactive (BEAKER) (test code = 2585) Specimen is considered negative for HBsAg.POCT-GLUCOSE [id number] 12:07:00 Test Item Value Reference Range Interpretation Comments POC-GLUCOSE METER 106 mg/dL 70-110 : TESTED A T [facility] 6720 (BEAKER) (test code = [facility], 153) 98575: Repairer Maintenance Building/Techni estefani ID = [id number] for SA NTOS, JACOB POCT-GLUCOSE [id number] 08:05:00 Test Item Value Reference Range Interpretation Comments POC-GLUCOSE METER 113 mg/dL 70-110 H : TESTED A T [facility] 6720 (BEAKER) (test code = [facility], 153) 44908: Repairer Maintenance Building/Techni estefani ID = [id number] for SA NTOS, JACOB POCT-GLUCOSE [id number] 22:58:00 Test Item Value Reference Range Interpretation Comments POC-GLUCOSE METER 201 mg/dL 70-110 H : TESTED A T [facility] 6720 (BEAKER) (test code = [facility], 153) 03757: Repairer Maintenance Building/Techni estefani ID = [id number] for UL LATTIL, SJ POCT-GLUCOSE [id number] 17:14:00 Test Item Value Reference Range Interpretation Comments POC-GLUCOSE METER 128 mg/dL 70-110 H : TESTED A T [facility] 6720 (BEAKER) (test code = [facility], 153) 60110: Repairer Maintenance Building/Techni estefani ID = [id number] for FA ITH, GUNNER POCT-GLUCOSE [id number] 12:17:00 Test Item Value Reference Range Interpretation Comments POC-GLUCOSE METER 171 mg/dL 70-110 H : TESTED A T [facility] 6720 (BEAKER) (test code = [facility], 153) 84566: Repairer Maintenance Building/Techni estefani ID = [id number] for FA ITH, GUNNER POCT-GLUCOSE [id number] 23:29:00 Test Item Value Reference Range Interpretation Comments POC-GLUCOSE METER 210 mg/dL 70-110 H : TESTED A T [facility] 6720 (BEAKER) (test code = [facility], 153) 85156: Repairer Maintenance Building/Techni estefani ID = [id number] for SJ HERBERT POCT-GLUCOSE [id number] 20:51:00 Test Item Value Reference Range Interpretation Comments POC-GLUCOSE METER 132 mg/dL 70-110 H : TESTED A T [facility] 6720 (BEAKER) (test code = [facility], 1538) 10314: Repairer Maintenance Building/Techni estefani ID = [id number] for ALTAGRACIA SQUIRES POCT-GLUCOSE [id number] 12:26:00 Test Item Value Reference Range Interpretation Comments POC-GLUCOSE METER 155 mg/dL 70-110 H : TESTED A T [facility] 6720 (BEAKER) (test code = [facility], 153) 47516: Repairer Maintenance Building/Techni estefani ID = [id number] for GUNNER PANDYA POCT-GLUCOSE [id number] 08:09:00 Test Item Value Reference Range Interpretation Comments POC-GLUCOSE METER 109 mg/dL 70-110 : TESTED A T [facility] 6720 (BEAKER) (test code = [facility], 153) 87262: Repairer Maintenance Building/Techni estefani ID = [id number] for GUNNER PANDYA BASIC METABOLIC [id number] 07:08:00 Test Item Value Reference Range Interpretation [...] S NOT APPLICABLE FOR DIALYSIS PATIEN TS. Repairer Maintenance Building ID - PIAYA LCBC (HEMOGRAM ONLY)2019-11-19 04:19:00 [...] 0-0 (BEAKER) (test code = 413) POCT-GLUCOSE [id number] 21:23:00 Test Item Value Reference Range Interpretation Comments POC-GLUCOSE METER 182 mg/dL 70-110 H : TESTED A T [facility] 6720 (BEAKER) (test code = [employer] [facility], 1538) 75271: Repairer Maintenance Building/Techni estefani ID = [id number] for CA RBAJAL, TIMA POCT-GLUCOSE [id number] 17:32:00 Test Item Value Reference Range Interpretation Comments POC-GLUCOSE METER 142 mg/dL 70-110 H : TESTED A T [facility] 6720 (BEAKER) (test code = [employer] [facility], 1538) 48131: Repairer Maintenance Building/Techni estefani ID = [id number] for JACOB LYLES POCT-GLUCOSE [id number] 13:24:00 Test Item Value Reference Range Interpretation Comments POC-GLUCOSE METER 164 mg/dL 70-110 H : TESTED A T [facility] 6720 (BEAKER) (test code = [facility], 1538) 12629: Repairer Maintenance Building/Techni estefani ID = [id number] for JACOB LYLES BASIC METABOLIC [id number] 12:57:00 Test Item Value Reference Range Interpretation [...] NOT APPLICABLE FOR DIALYSIS PATIEN TS. POCT-GLUCOSE [id number] 08:04:00 Test Item Value Reference Range Interpretation Comments POC-GLUCOSE METER 137 mg/dL 70-110 H : TESTED A T [facility] 6720 (BEAKER) (test code = [facility], 1538) 20820: Repairer Maintenance Building/Techni estefani ID = [id number] for JACOB LYLES CBC (HEMOGRAM ONLY)2019-11-18 06:36:00 [...] 0-0 (BEAKER) (test code = 413) POCT-GLUCOSE [id number] 22:05:00 Test Item Value Reference Range Interpretation Comments POC-GLUCOSE METER 123 mg/dL 70-110 H : TESTED A T [facility] 6720 (BEAKER) (test code = [facility], 153) 30837: Repairer Maintenance Building/Techni estefani ID = [id number] for ABDIRAHMAN OSORIO POCT-GLUCOSE [id number] 17:52:00 Test Item Value Reference Range Interpretation Comments POC-GLUCOSE METER 111 mg/dL 70-110 H : TESTED A T [facility] 6720 (BEAKER) (test code = [facility] [place] [facility] [employer] [facility], 153) 16609: Repairer Maintenance Building/Techni estefani ID = [id number] for SA JACOB DE LEON BASIC METABOLIC [id number] 09:54:00 Test Item Value Reference Range Interpretation [...] S NOT APPLICABLE FOR DIALYSIS PATIEN TS. Repairer Maintenance Building ID - JAQUELINE MPOCT-GLUCOSE [id number] 08:13:00 Test Item Value Reference Range Interpretation Comments POC-GLUCOSE METER 134 mg/dL 70-110 H : TESTED A T [facility] (BEAKER) (test code = [facility] [place], 1538) 90062: Repairer Maintenance Building/Techni estefani ID = [id number] for JACOB LYLES CBC (HEMOGRAM ONLY)2019-11-17 07:03:00 [...] 0-0 (BEAKER) (test code = 413) POCT-GLUCOSE [id number] 21:52:00 Test Item Value Reference Range Interpretation Comments POC-GLUCOSE METER 154 mg/dL 70-110 H : TESTED A T [facility] 6720 (BEAKER) (test code = [facility], 1538) 28418: Repairer Maintenance Building/Techni estefani ID = [id number] for SA HIGGINSDEANNACRYSTAL POCT-GLUCOSE [id number] 17:47:00 Test Item Value Reference Range Interpretation Comments POC-GLUCOSE METER 179 mg/dL 70-110 H : TESTED A T [facility] 6720 (BEAKER) (test code = [facility], 1538) 62219: Repairer Maintenance Building/Techni estefani ID = [id number] for SA NTJACOB CASTANEDA POCT-GLUCOSE [id number] 11:58:00 Test Item Value Reference Range Interpretation Comments POC-GLUCOSE METER 158 mg/dL 70-110 H : TESTED A T [facility] 6720 (BEAKER) (test code = [facility], 1538) 40990: Repairer Maintenance Building/Techni estefani ID = [id number] for SA NTOS, JACOB BASIC METABOLIC [id number] 08:15:00 Test Item Value Reference Range Interpretation [...] S NOT APPLICABLE FOR DIALYSIS PATIEN TS. Repairer Maintenance Building ID - ANTONY FPOCT-GLUCOSE [id number] 08:09:00 Test Item Value Reference Range Interpretation Comments POC-GLUCOSE METER 163 mg/dL 70-110 H : TESTED A T [facility] 6720 (BEAKER) (test code = [facility] [place], 1538) 95757: Repairer Maintenance Building/Techni estefani ID = [id number] for JACOB LYLES CBC (HEMOGRAM ONLY)2019-11-16 07:04:00 [...] 0-0 (BEAKER) (test code = 413) POCT-GLUCOSE [id number] 21:05:00 Test Item Value Reference Range Interpretation Comments POC-GLUCOSE METER 199 mg/dL 70-110 H : TESTED A T [facility] 6720 (BEAKER) (test code = [facility] [place], 1538) 30212: Repairer Maintenance Building/Techni estefani ID = [id number] for ARUNA LATTIL, SJ POCT-GLUCOSE [id number] 17:09:00 Test Item Value Reference Range Interpretation Comments POC-GLUCOSE METER 129 mg/dL 70-110 H : TESTED A T [facility] 6720 (BEAKER) (test code = [facility], 153) 68815: Repairer Maintenance Building/Techni estefani ID = [id number] for GUNNER PANDYA [id number] 16:14:00 Test Item Value Reference Range Interpretation Comments ACTIVATED CLOTTING TIME 202 sec : 74 -137 seconds, (BEAKER) (test code = Amadeo ne: TESTED AT 441) [facility] [address] [facility], 770 30: Repairer Maintenance Building/Techni estefani ID = [id number] for DAILY HOGUE POCT-GLUCOSE [id number] 15:08:00 Test Item Value Reference Range Interpretation Comments POC-GLUCOSE METER 126 mg/dL 70-110 H : TESTED A T [facility] 6720 (BEAKER) (test code = [facility], 153) 20339: Repairer Maintenance Building/Techni estefani ID = [id number] for FERNANDA YOUNGER POCT-GLUCOSE [id number] 14:35:00 Test Item Value Reference Range Interpretation Comments POC-GLUCOSE METER 137 mg/dL 70-110 H : TESTED A T [facility] (BEAKER) (test code = [facility], 153) 93002: Repairer Maintenance Building/Techni estefani ID = [id number] for TYRONE VAZQUEZ (CELLAVISION MANUAL DIFF)2019-11-15 09:51:00 [...] CONCENTRATION Adequate (CELLAVISION)(BEAKER) (test code = 3438) Repairer Maintenance Building ID - Daily OverholtUser comments: Slide comments:POCT-GLUCOSE METER 2019-11-15 08:08:00 Test Item Value Reference Range Interpretation Comments POC-GLUCOSE METER 128 mg/dL 70-110 H : TESTED A T [facility] [address]20 (BEAKER) (test code = [facility] [place], 1538) 33759: Repairer Maintenance Building/Techni estefani ID = [id number] for TRE CRAWFORDGUNNER BASIC METABOLIC [id number] 06:08:00 Test Item Value Reference Range Interpretation [...] S NOT APPLICABLE FOR DIALYSIS PATIEN TS. Repairer Maintenance Building ID - EDASICREATINE KINASE (CK)2019-11-15 06:06:00 Test Item Value Reference Range Interpretation Comments CREATINE KINASE TOTAL (BEAKER) (test 46 U/L 29-200 code = 380) Repairer Maintenance Building ID - [id number] 05:09:00 Test Item Value Reference Range Interpretation Comments PARTIAL THROMBOPLASTIN TIME 52.1 seconds 22.5-36.0 H (BEAKER) (test code = 760) PROTHROMBIN TIME/[id number] 05:08:00 Test Item Value Reference Range Interpretation [...] 0-0 (BEAKER) (test code = 413) POCT-GLUCOSE [id number] 21:29:00 Test Item Value Reference Range Interpretation Comments POC-GLUCOSE METER 189 mg/dL 70-110 H : TESTED A T [facility] 6720 (BEAKER) (test code = [facility], 1538) 02203: Repairer Maintenance Building/Techni estefani ID = [id number] for UL ERIC SJ POCT-GLUCOSE [id number] 17:22:00 Test Item Value Reference Range Interpretation Comments POC-GLUCOSE METER 208 mg/dL 70-110 H : TESTED A T [facility] 6720 (BEAKER) (test code = [facility], 1538) 06664: Repairer Maintenance Building/Techni estefani ID = [id number] for SUREKHA OLIVER TISSUE [id number] 16:50:00Surgical Pathology Report Case: [id number] Authorizing Provider: Star Cloud DPM Collected: 11/08/2019 03:53 PM Ordering Location: [facility] Received: 11/09/2019 09:35 AM PERIOPERATIVE SERVICES [...] FOR MALIGNANCY Signing Pathologist Direct Phone Line: [phone] signed by Vandana Beverly MD on 11/14/2019 at 4:50 [id number] X 4 ; [phone] X 2Non-healing surgical wound, initial encounter A. [...] red trabecular bone with no gross lesions. Ophthalmic Pathologist sections are submitted.Section code:A1: Smaller gardner- baca [...] gardner-red trabecular bone with no gross lesions. Ophthalmic Pathologist sections are s ubmitted.Section code:B1: Bone margin, en face, following decalcificationB2 sales representative health insurance of hemorrhagic soft tissue and bone, following decalcificationC. Received fresh labeled with the patient's name, medical record number and "tendon/tendon sheath" is an 8.1 x 1.3 x 0.3 cm gardner-baca, congested tendon. The specimen is serially sectioned and no gross lesions are identified. Ophthalmic Pathologist sectionsare submitted in C1.D. Received fresh labeled with the patient's name, medical record number and "right foot eschar" is 11.5 x 11.5 x 0.8 cm aggregate of 4 irregular portions of black-baca, hyperkeratotic skin. Specimen is serially sectioned to reveal hard, hemorrhagic tissue. Ophthalmic Pathologist sections are submitted in D1-D2.BREANNA Nava, PA (ASCP)PERFORMEDPOCT-GLUCOSE [id number] 12:59:00 Test Item Value Reference Range Interpretation Comments POC-GLUCOSE METER 257 mg/dL 70-110 H : TESTED A T [facility] 6720 (BEAKER) (test code = [facility], 1538) 30683: Repairer Maintenance Building/Techni estefani ID = [id number] for OL MOS, SUREKHA POCT-GLUCOSE [id number] 08:50:00 Test Item Value Reference Range Interpretation Comments POC-GLUCOSE METER 183 mg/dL 70-110 H : TESTED A T [facility] 6720 (BEAKER) (test code = [facility], 1538) 28778: Repairer Maintenance Building/Techni estefani ID = [id number] for OL MOS, SUREKHA BASIC METABOLIC [id number] 06:49:00 Test Item Value Reference Range Interpretation [...] S NOT APPLICABLE FOR DIALYSIS PATIEN TS. Repairer Maintenance Building ID - DANITZA [id number] 06:48:00 Test Item Value Reference Range Interpretation Comments MAGNESIUM (BEAKER) (test code = 2.1 mg/dL 1.6-2.6 627) Repairer Maintenance Building ID - DANITZA LCBC W/PLT COUNT & AUTO [id number] 05:42:00 Test Item Value Reference Range Interpretation [...] PERCENT (BEAKER) (test code = 2801) CALCIUM, [id number] 05:04:00 Test Item Value Reference Range Interpretation Comments CALCIUM IONIZED (BEAKER) (test 1.02 mmol/L 1.12-1.27 L code = 698) PH, BLOOD (BEAKER) (test code = 7.42 1810) POCT-GLUCOSE [id number] 21:20:00 Test Item Value Reference Range Interpretation Comments POC-GLUCOSE METER 334 mg/dL 70-110 H : [facility] (test code = [facility], 1538) 96506: Repairer Maintenance Building/Techni estefani ID = [id number] for JAD SALGUERO POCT-GLUCOSE [id number] 17:37:00 Test Item Value Reference Range Interpretation Comments POC-GLUCOSE METER 256 mg/dL 70-110 H : TESTED A T [facility] 6720 (BEAKER) (test code = [facility] [employer] [facility], 1538) 42825: Repairer Maintenance Building/Techni estefani ID = [id number] for JACOB LYLES SARS-COV2/RT-PCR ([facility])2019-11-13 13:07:00 Test Item Value Reference Range Interpretation Comments SARS-COV2/RT-PCR (test Negative Not Detected, Negative, code = 3597129) See external report for linked test SARS-COV-2 PERFORMING LAB [facility] (test code = 0935708) Negative result for this test determines that [...] 564(g) of the Act.Fact Sheet for Healthcare Providers:https://www.Memopal/sites/default/files/product/documents/Fact_Shee s_NU_Mnutoegkd_Vqdu_QSNG-PtA-3.pdfFact Sheet for Healthcare Patients:https://www.Memopal/sites/default/files/product/ documents/Fcdn_Wuomr_Oukfzcpw_Yzjp_JPQA-AoR-5.pdfPerforming Laboratory:[place] [address], [place] [address]CCKOT METABOLIC PANEL 2019-11-13 06:03:00 Test Item Value [...] S NOT APPLICABLE FOR DIALYSIS PATIEN TS. Repairer Maintenance Building ID - PIAYA LPOCT-GLUCOSE [id number] 21:20:00 Test Item Value Reference Range Interpretation Comments POC-GLUCOSE METER 234 mg/dL 70-110 H : TESTED A T [facility] 6720 (BEAKER) (test code = [facility], 1538) 89834: Repairer Maintenance Building/Techni estefani ID = [id number] for SA HIGGINSCRYSTAL POCT-GLUCOSE [id number] 17:07:00 Test Item Value Reference Range Interpretation Comments POC-GLUCOSE METER 233 mg/dL 70-110 H : TESTED A T [facility] 6720 (BEAKER) (test code = [facility], 1538) 91746: Repairer Maintenance Building/Techni estefani ID = [id number] for FA GUNNER CRAWFORD POCT-GLUCOSE [id number] 12:06:00 Test Item Value Reference Range Interpretation Comments POC-GLUCOSE METER 248 mg/dL 70-110 H : TESTED A T [facility] 6720 (BEAKER) (test code = [facility], 1538) 39091: Repairer Maintenance Building/Techni estefani ID = [id number] for FA GUNNER CRAWFORD BASIC METABOLIC [id number] 11:18:00 Test Item Value Reference Range Interpretation [...] S NOT APPLICABLE FOR DIALYSIS PATIEN TS. Repairer Maintenance Building ID - JAQUELINE MOperator ID - JEREMY [id number] 11:15:00 Test Item Value Reference Range Interpretation Comments MAGNESIUM (BEAKER) (test code = 2.0 mg/dL 1.6-2.6 627) Repairer Maintenance Building ID - JEREMY MPOCT-GLUCOSE [id number] 07:56:00 Test Item Value Reference Range Interpretation Comments POC-GLUCOSE METER 137 mg/dL 70-110 H : TESTED A T [facility] 6720 (BEAKER) (test code = [facility] [place], 1538) 07965: Repairer Maintenance Building/Techni estefani ID = [id number] for GUNNER PANDYA CALCIUM, [id number] 07:50:00 Test Item Value Reference Range Interpretation Comments CALCIUM IONIZED (BEAKER) (test 0.98 mmol/L 1.12-1.27 L code = 698) PH, BLOOD (BEAKER) (test code = 7.42 1810) CBC W/PLT COUNT & AUTO [id number] 06:03:00 Test Item Value Reference Range Interpretation [...] PERCENT (BEAKER) (test code = 2801) POCT-GLUCOSE [id number] 21:00:00 Test Item Value Reference Range Interpretation Comments POC-GLUCOSE METER 233 mg/dL 70-110 H : TESTED A T [facility] 6720 (BEAKER) (test code = [facility], 1538) 16927: Repairer Maintenance Building/Techni estefani ID = [id number] for UL LATTIL, SJ POCT-GLUCOSE [id number] 16:59:00 Test Item Value Reference Range Interpretation Comments POC-GLUCOSE METER 237 mg/dL 70-110 H : TESTED A T [facility] 6720 (BEAKER) (test code = [facility], 1538) 66658: Repairer Maintenance Building/Techni estefani ID = [id number] for GUNNER PANDYA CREATINE KINASE (CK)2019-11-11 12:29:00 Test Item Value Reference Range Interpretation Comments CREATINE KINASE TOTAL (BEAKER) (test 32 U/L 29-200 code = 380) Repairer Maintenance Building ID - CAROLINA FPOCT-GLUCOSE [id number] 12:04:00 Test Item Value Reference Range Interpretation Comments POC-GLUCOSE METER 237 mg/dL 70-110 H : [facility]ER[facility] (test code = [facility], 1538) 88268: Repairer Maintenance Building/Techni estefani ID = [id number] for GUNNER PANDYA OBTAINED CULTURE + GRAM [id number] 10:13:00 Test Item Value Reference Range Interpretation [...] No organisms seen (BEAKER) (test code = 843122) BASIC METABOLIC [id number] 08:46:00 Test Item Value Reference Range Interpretation [...] S NOT APPLICABLE FOR DIALYSIS PATIEN TS. Repairer Maintenance Building ID - ANTONY [id number] 08:33:00 Test Item Value Reference Range Interpretation Comments MAGNESIUM (BEAKER) (test code = 2.1 mg/dL 1.6-2.6 627) Repairer Maintenance Building ID - ANTONY FPOCT-GLUCOSE [id number] 08:11:00 Test Item Value Reference Range Interpretation Comments POC-GLUCOSE METER 177 mg/dL 70-110 H : [facility] ([facility]ER[facility] (test code = [facility], 1538) 65232: Repairer Maintenance Building/Techni estefani ID = [id number] for GUNNER PANDYA CALCIUM, [id number] 07:08:00 Test Item Value Reference Range Interpretation Comments CALCIUM IONIZED (BEAKER) (test 1.01 mmol/L 1.12-1.27 L code = 698) PH, BLOOD (BEAKER) (test code = 7.46 1810) CBC W/PLT COUNT & AUTO [id number] 06:12:00 Test Item Value Reference Range Interpretation [...] PERCENT (BEAKER) (test code = 2801) BLOOD [id number] 06:00:00 Test Item Value Reference Range Interpretation Comments CULTURE (BEAKER) (test No growth in 5 days code = 1095) BLOOD [id number] 00:00:00 Test Item Value Reference Range Interpretation Comments CULTURE (BEAKER) (test No growth in 5 days code = 1095) POCT-GLUCOSE [id number] 20:39:00 Test Item Value Reference Range Interpretation Comments POC-GLUCOSE METER 187 mg/dL 70-110 H : TESTED A T [facility] 6720 (BEAKER) (test code = [facility], 1538) 06150: Repairer Maintenance Building/Techni estefani ID = [id number] for SJ HERBERT POCT-GLUCOSE [id number] 12:11:00 Test Item Value Reference Range Interpretation Comments POC-GLUCOSE METER 239 mg/dL 70-110 H : TESTED A T [facility] 6720 (BEAKER) (test code = [facility], 1538) 37537: Repairer Maintenance Building/Techni estefani ID = [id number] for JACOB LYLES BASIC METABOLIC [id number] 09:32:00 Test Item Value Reference Range Interpretation [...] S NOT APPLICABLE FOR DIALYSIS PATIEN TS. Repairer Maintenance Building ID - DANITZA [id number] 09:15:00 Test Item Value Reference Range Interpretation Comments MAGNESIUM (BEAKER) (test code = 2.3 mg/dL 1.6-2.6 627) Repairer Maintenance Building ID - DANITZA LPOCT-GLUCOSE [id number] 08:14:00 Test Item Value Reference Range Interpretation Comments POC-GLUCOSE METER 173 mg/dL 70-110 H : TESTED A T [facility] 6720 (BEAKER) (test code = [facility], 1538) 53306: Repairer Maintenance Building/Techni estefani ID = [id number] for JACOB LYLES CALCIUM, [id number] 07:23:00 Test Item Value Reference Range Interpretation Comments CALCIUM IONIZED (BEAKER) (test 1.02 mmol/L 1.12-1.27 L code = 698) PH, BLOOD (BEAKER) (test code = 7.39 1810) CBC W/PLT COUNT & AUTO [id number] 06:22:00 Test Item Value Reference Range Interpretation [...] (BEAKER) (test code = 2801) VANCOMYCIN LEVEL, [id number] 06:07:00 Test Item Value Reference Range Interpretation Comments VANCOMYCIN RANDOM (BEAKER) (test 29.4 ug/mL code = 523) Reference Range: No NormalsOperator ID - PIAYA LPOCT-GLUCOSE [id number] 21:26:00 Test Item Value Reference Range Interpretation Comments POC-GLUCOSE METER 250 mg/dL 70-110 H : TESTED A T [facility] 6720 ([facility]) (test code = [facility], 153) 32284: Repairer Maintenance Building/Techni estefani ID = [id number] for UL ERIC, SJ POCT-GLUCOSE [id number] 17:14:00 Test Item Value Reference Range Interpretation Comments POC-GLUCOSE METER 283 mg/dL 70-110 H : TESTED A T [facility] 6720 (BEAKER) (test code = [facility], 1538) 26838: Repairer Maintenance Building/Techni estefani ID = [id number] for FA GUNNER CRAWFORD POCT-GLUCOSE [id number] 12:13:00 Test Item Value Reference Range Interpretation Comments POC-GLUCOSE METER 233 mg/dL 70-110 H : TESTED A T [facility] 6720 (BEAKER) (test code = [facility], 1538) 36429: Repairer Maintenance Building/Techni estefani ID = [id number] for FA TY, GUNNER SPIN/CONCENTRATION [id number] 10:35:00 Test Item Value Reference Range Interpretation Comments CONCENTRATION CHARGED (BEAKER) (test Done code = 2657) POCT-GLUCOSE [id number] 08:01:00 Test Item Value Reference Range Interpretation Comments POC-GLUCOSE METER 195 mg/dL 70-110 H : TESTED A T [facility] 6720 (BEAKER) (test code = [facility] [place], 1538) 09128: Repairer Maintenance Building/Techni estefani ID = [id number] for GUNNER PANDYA BASIC METABOLIC [id number] 06:24:00 Test Item Value Reference Range Interpretation [...] S NOT APPLICABLE FOR DIALYSIS PATIEN TS. Repairer Maintenance Building ID - [id number] 06:07:00 Test Item Value Reference Range Interpretation Comments PHOSPHORUS (BEAKER) (test code = 5.2 mg/dL 2.3-4.7 H 604) Repairer Maintenance Building ID - [id number] 06:07:00 Test Item Value Reference Range Interpretation Comments MAGNESIUM (BEAKER) (test code = 2.1 mg/dL 1.6-2.6 627) Repairer Maintenance Building ID - EDASICBC W/PLT COUNT & AUTO [id number] 06:02:00 Test Item Value Reference Range Interpretation [...] PERCENT (BEAKER) (test code = 2801) CALCIUM, [id number] 05:45:00 Test Item Value Reference Range Interpretation Comments CALCIUM IONIZED (BEAKER) (test 0.97 mmol/L 1.12-1.27 L code = 698) PH, BLOOD (BEAKER) (test code = 7.43 1810) POCT-GLUCOSE [id number] 21:43:00 Test Item Value Reference Range Interpretation Comments POC-GLUCOSE METER 343 mg/dL 70-110 H : TESTED A T [facility] 6720 ([employer]) (test code = [facility], 153) 67358: Repairer Maintenance Building/Techni estefani ID = [id number] for TIMA CHÁVEZ RAD, FOOT, 2 VIEWS, [id number] 21:02:00Reason for exam:->post op revision fo TMA, [...] MDReport Verified Date/Time: 11/08/2019 21:02:38 Reading Location: [address] Transitional Reading Room POCT-GLUCOSE [id number] 17:48:00 Test Item Value Reference Range Interpretation Comments POC-GLUCOSE METER 135 mg/dL 70-110 H : TESTED A T [facility] 6720 ([facility]) (test code = [facility], 1538) 36270: Repairer Maintenance Building/Techni estefani ID = [id number] for MOISESJACOB POCT-GLUCOSE [id number] 16:57:00 Test Item Value Reference Range Interpretation Comments POC-GLUCOSE METER 130 mg/dL 70-110 H : TESTED A T [facility] 6720 (BEAKER) (test code = [facility], 1538) 27228: Repairer Maintenance Building/Techni estefani ID = [id number] for ROSE GONZALES POCT-GLUCOSE [id number] 12:31:00 Test Item Value Reference Range Interpretation Comments POC-GLUCOSE METER 117 mg/dL 70-110 H : TESTED A T [facility] 6720 (BEAKER) (test code = [facility] [place], 1538) 18530: Repairer Maintenance Building/Techni estefani ID = [id number] for Destini Contreras BASIC METABOLIC [id number] 06:39:00 Test Item Value Reference Range Interpretation [...] S NOT APPLICABLE FOR DIALYSIS PATIEN TS. Repairer Maintenance Building ID - DANITZA [id number] 06:38:00 Test Item Value Reference Range Interpretation Comments PHOSPHORUS (BEAKER) (test code = 5.2 mg/dL 2.3-4.7 H 604) Repairer Maintenance Building ID - PIZAYRA [id number] 06:38:00 Test Item Value Reference Range Interpretation Comments MAGNESIUM (BEAKER) (test code = 2.1 mg/dL 1.6-2.6 627) Repairer Maintenance Building ID - PIZAYRA LVANCOMYCIN LEVEL, [id number] 06:18:00 Test Item Value Reference Range Interpretation Comments VANCOMYCIN RANDOM (BEAKER) (test 14.1 ug/mL code = 523) Reference Range: No NormalsOperator ID - DANITZA LCBC W/PLT COUNT & AUTO [id number] 05:32:00 Test Item Value Reference Range Interpretation [...] PERCENT (BEAKER) (test code = 2801) POCT-GLUCOSE [id number] 21:15:00 Test Item Value Reference Range Interpretation Comments POC-GLUCOSE METER 199 mg/dL 70-110 H : TESTED A T [facility] 6720 (BEAKER) (test code = [facility], 1538) 95874: Repairer Maintenance Building/Techni estefani ID = [id number] for SA HIGGINS, CRYSTAL POCT-GLUCOSE [id number] 17:20:00 Test Item Value Reference Range Interpretation Comments POC-GLUCOSE METER 214 mg/dL 70-110 H : TESTED A T [facility] 6720 (BEAKER) (test code = [facility], 1538) 65553: Repairer Maintenance Building/Techni estefani ID = [id number] for SA NTOS, JACOB POCT-GLUCOSE [id number] 12:59:00 Test Item Value Reference Range Interpretation Comments POC-GLUCOSE METER 135 mg/dL 70-110 H : TESTED A T [facility] 6720 (BEAKER) (test code = [facility], 1538) 98542: Repairer Maintenance Building/Techni estefani ID = [id number] for SA NTOS, JACOB POCT-GLUCOSE [id number] 06:05:00 Test Item Value Reference Range Interpretation Comments POC-GLUCOSE METER 130 mg/dL 70-110 H : TESTED A T [facility] 6720 (BEAKER) (test code = [facility], 1538) 33516: Repairer Maintenance Building/Techni estefani ID = [id number] for UL LATTIL, SJ BASIC METABOLIC [id number] 05:38:00 Test Item Value Reference Range Interpretation [...] S NOT APPLICABLE FOR DIALYSIS PATIEN TS. Repairer Maintenance Building ID - [id number] 05:36:00 Test Item Value Reference Range Interpretation Comments PHOSPHORUS (BEAKER) (test code = 5.1 mg/dL 2.3-4.7 H 604) Repairer Maintenance Building ID - [id number] 05:36:00 Test Item Value Reference Range Interpretation Comments MAGNESIUM (BEAKER) (test code = 2.2 mg/dL 1.6-2.6 627) Repairer Maintenance Building ID - EDASIPOCT-GLUCOSE [id number] 03:01:00 Test Item Value Reference Range Interpretation Comments POC-GLUCOSE METER 72 mg/dL 70-110 : TESTED A T [facility] 6720 (BEAKER) (test code = [facility], 1538) 77548: Repairer Maintenance Building/Techni estefani ID = [id number] for ADRY TTIL, SJ POCT-GLUCOSE [id number] 00:16:00 Test Item Value Reference Range Interpretation Comments POC-GLUCOSE METER 94 mg/dL 70-110 : TESTED A T [facility] 6720 (BEAKER) (test code = [facility], 1538) 92348: Repairer Maintenance Building/Techni estefani ID = [id number] for ADRY TTIL, SJ POCT-GLUCOSE [id number] 23:44:00 Test Item Value Reference Range Interpretation Comments POC-GLUCOSE METER 57 mg/dL 70-110 L : TESTED A T [facility] 6720 (BEAKER) (test code = [facility], 1538) 65806: Repairer Maintenance Building/Techni estefani ID = [id number] for ADRY TTIL, SJ POCT-GLUCOSE [id number] 21:06:00 Test Item Value Reference Range Interpretation Comments POC-GLUCOSE METER 80 mg/dL 70-110 : TESTED A T [facility] 6720 (BEAKER) (test code = [facility], 1538) 88301: Repairer Maintenance Building/Techni estefani ID = [id number] for SJ WHITAKER POCT-GLUCOSE [id number] 18:03:00 Test Item Value Reference Range Interpretation Comments POC-GLUCOSE METER 70 mg/dL 70-110 : [facility] (test code = [facility], 1538) 26661: Repairer Maintenance Building/Techni estefani ID = [id number] for JUAN Z, EVONNE VIAL POCT-GLUCOSE [id number] 17:47:00 Test Item Value Reference Range Interpretation Comments POC-GLUCOSE METER 45 mg/dL 70-110 L : TESTED A T [facility] 6720 (BEAKER) (test code = [facility], 1538) 14546: Repairer Maintenance Building/Techni estefani ID = [id number] for JUAN Z, EVONNE VIAL SARS-COV2/RT-PCR ([facility])2019-11-06 13:38:00 Test Item Value Reference Range Interpretation Comments SARS-COV2/RT-PCR (test Negative Not Detected, Negative, code = 8837767) See external report for linked test SARS-COV-2 PERFORMING LAB [facility] (test code = 5414714) Negative result for this test determines that [...] 564(g) of the Act.Fact Sheet for Healthcare Providers:https://www.Memopal/sites/default/files/product/documents/Fact_Shee a_DM_Rxwrkkebd_Fhou_MROP-KfZ-0.pdfFact Sheet for Healthcare Patients:https://www.Memopal/sites/default/files/product/ documents/Dztf_Lwgft_Vebdrour_Srfb_TQOS-LzD-0.pdfPerforming Laboratory:[facility], [place] [id number] 12:56:00 Test Item Value Reference Range Interpretation Comments FERRITIN (BEAKER) (test code = 1137.02 ng/mL 5.00-275.00 H 361) Repairer Maintenance Building ID - NTPIRON, TIBC, % SAT. (WITHOUT FERRITIN)2019-11-06 12:36:00 Test Item Value Reference Range Interpretation Comments IRON (BEAKER) (test code = 547) 16.0 ug/dL 40.0-160.0 L TOTAL IRON BINDING CAPACITY 139 ug/dL 250-450 L (BEAKER) (test code = 769) IRON % SATURATION (2) (BEAKER) 12 % 20-55 L (test code = 2590) Repairer Maintenance Building ID - NTPRAD, FOOT, MIN 3 VIEWS, [id number] 11:14:00Reason for exam:->Nonhealing right TMA stump; open [...] MDReport Verified Date/Time: 11/06/2019 11:14:48 Reading Location: [facility] Radiology Reading Room POCT-GLUCOSE [id number] 06:53:00 Test Item Value Reference Range Interpretation Comments POC-GLUCOSE METER 81 mg/dL 70-110 : TESTED A T [facility] 6720 (BEAKER) (test code = [facility], 1538) 81706: Repairer Maintenance Building/Techni estefani ID = [id number] for ADRY TTIL, SJ [id number] 06:44:00 Test Item Value Reference Range Interpretation Comments MAGNESIUM (BEAKER) (test code = 2.3 mg/dL 1.6-2.6 627) Repairer Maintenance Building ID - [id number] 06:44:00 Test Item Value Reference Range Interpretation Comments PHOSPHORUS (BEAKER) (test code = 5.4 mg/dL 2.3-4.7 H 604) Repairer Maintenance Building ID - DBPOCT-GLUCOSE [id number] 06:36:00 Test Item Value Reference Range Interpretation Comments POC-GLUCOSE METER 61 mg/dL 70-110 L : TESTED A T [facility] 6720 (BEAKER) (test code = [facility], 1538) 18127: Repairer Maintenance Building/Techni estefani ID = [id number] for ADRY TTIL, SJ CBC W/PLT COUNT & AUTO [id number] 06:23:00 Test Item Value Reference Range Interpretation [...] (BEAKER) (test code = 2801) VANCOMYCIN LEVEL, [id number] 06:22:00 Test Item Value Reference Range Interpretation Comments VANCOMYCIN RANDOM (BEAKER) (test 12.3 ug/mL code = 523) Reference Range: No NormalsOperator ID - EDASIPOCT-GLUCOSE [id number] 06:07:00 Test Item Value Reference Range Interpretation Comments POC-GLUCOSE METER 42 mg/dL 70-110 L : TESTED A T [facility] 6720 (BEAKER) (test code = [facility] [place], 6993) 80392: Repairer Maintenance Building/Techni estefani ID = [id number] for SJ WHITAKER CREATINE KINASE (CK)2019-11-06 05:29:00 Test Item Value Reference Range Interpretation Comments CREATINE KINASE TOTAL (BEAKER) (test 131 U/L 29-200 code = 380) Repairer Maintenance Building ID - EDASICOMPREHENSIVE METABOLIC [id number] 05:29:00 Test Item Value Reference Range Interpretation [...] S NOT APPLICABLE FOR DIALYSIS PATIEN TS. Repairer Maintenance Building ID - EDASICOMPREHENSIVE METABOLIC [id number] 23:15:00 Test Item Value Reference Range Interpretation [...] S NOT APPLICABLE FOR DIALYSIS PATIEN TS. Repairer Maintenance Building ID - DBLACTIC ACID, [id number] 23:09:00 Test Item Value Reference Range Interpretation Comments LACTATE BLOOD VENOUS (2) (BEAKER) 1.19 mmol/L 0.50-2.20 (test code = 2872) Repairer Maintenance Building ID - DBPOCT-GLUCOSE [id number] 22:24:00 Test Item Value Reference Range Interpretation Comments POC-GLUCOSE METER 103 mg/dL 70-110 : TESTED A T [facility] 6720 (BEAKER) (test code = [place], 1538) 11211: Repairer Maintenance Building/Techni estefani ID = [id number] for SJ HERBERT POCT-GLUCOSE [id number] 21:50:00 Test Item Value Reference Range Interpretation Comments POC-GLUCOSE METER 63 mg/dL 70-110 L : TESTED A T [facility] 6720 (BEAKER) (test code = [facility], 153) 74902: Repairer Maintenance Building/Techni estefani ID = [id number] for ADRY TTIL, SJ POCT-GLUCOSE [id number] 21:33:00 Test Item Value Reference Range Interpretation Comments POC-GLUCOSE METER 42 mg/dL 70-110 L : TESTED A T [facility] 6720 (BEAKER) (test code = [facility], 153) 69364: Repairer Maintenance Building/Techni estefani ID = [id number] for ADRY TTIL, SJ ANAEROBIC [id number] 19:16:00 Test Item Value Reference Range Interpretation Comments CULTURE (BEAKER) A 2+ Same org anism has been (test code = 1095) isolated from culture(s) of the same body s ite and collection date . Repeat identification performed only after cons ultation with the [facility] microbiology laboratory.Refe r to previous cultur e of* - Cutibacterium a cnes ANAEROBIC [id number] 19:13:00 Test Item Value Reference Range Interpretation Comments CULTURE (BEAKER) (test A 2+ Cu tibacterium acnes code = 1095) POCT-GLUCOSE [id number] 11:08:00 Test Item Value Reference Range Interpretation Comments POC-GLUCOSE METER 136 mg/dL 70-110 H : TESTED A T [facility] 6720 (BEAKER) (test code = [facility], 153) 56442: Repairer Maintenance Building/Techni estefani ID = [id number] for YUNIOR SIMS POCT-GLUCOSE [id number] 07:51:00 Test Item Value Reference Range Interpretation Comments POC-GLUCOSE METER 89 mg/dL 70-110 : TESTED A T [facility] 6720 (BEAKER) (test code = [facility], 153) 19890: Repairer Maintenance Building/Techni estefani ID = [id number] for YUNIOR JOHNSTON POCT-GLUCOSE [id number] 21:07:00 Test Item Value Reference Range Interpretation Comments POC-GLUCOSE METER 145 mg/dL 70-110 H : TESTED A T [facility] 6720 (BEAKER) (test code = [facility], 1538) 51122: Repairer Maintenance Building/Techni estefani ID = [id number] for AN RON BAIRD POCT-GLUCOSE [id number] 14:59:00 Test Item Value Reference Range Interpretation Comments POC-GLUCOSE METER 152 mg/dL 70-110 H : TESTED A T [facility] 6720 (BEAKER) (test code = DASIA Garcia [facility], 1538) 45077: Repairer Maintenance Building/Techni estefani ID = [id number] for Mims Mary Lou neumann BASIC METABOLIC [id number] 10:10:00 Test Item Value Reference Range Interpretation [...] S NOT APPLICABLE FOR DIALYSIS PATIEN TS. Repairer Maintenance Building ID - EDASISURGICALLY OBTAINED CULTURE + GRAM [id number] 09:54:00 Test Item Value Reference Range Interpretation Comments CULTURE (BEAKER) A <1+ Same or ganism has (test code = been isolated f rom 1095) cultures(s) of the same body site and collection date . Repeat identifi cation and susceptibil ity testing perform ed only after consultat ion with the [facility] laboratory.Refe r to previous cultur e ofCandida parap silosis GRAM STAIN 1+ WBCs RESULT (BEAKER) (test code = 1123) GRAM STAIN <1+ gram RESULT (BEAKER) negative rods (test code = 474891) GRAM STAIN <1+ gram RESULT (BEAKER) positive cocci (test code = in pairs 703868) 1+ Skin floraSURGICALLY OBTAINED CULTURE + GRAM [id number] 09:49:00 Test Item Value Reference Interpretation Comments [...] gram negative (BEAKER) (test code = rods 709299) GRAM STAIN RESULT <1+ gram positive (BEAKER) (test code = rods 067081) GRAM STAIN RESULT 2+ gram positive (BEAKER) (test code = cocci in pairs 133880) GRAM STAIN RESULT 1+ gram positive (BEAKER) (test code = cocci in clusters 524300) GRAM STAIN RESULT 1+ yeast (BEAKER) (test code = 325866) 3+ Skin lake consisting of Coagulase Negative Staphylococcus and Diphtheroid species.POCT-GLUCOSE [id number] 08:04:00 Test Item Value Reference Range Interpretation Comments POC-GLUCOSE METER 92 mg/dL 70-110 : TESTED A T [facility] (BEAKER) (test code = DASIA ORR, 1538) 22040: Repairer Maintenance Building/Techni estefani ID = [id number] for Phil Swanson POCT-GLUCOSE [id number] 21:49:00 Test Item Value Reference Range Interpretation Comments POC-GLUCOSE METER 155 mg/dL 70-110 H : TESTED A T [facility] (BEAKER) (test code = [facility], 1538) 93529: Repairer Maintenance Building/Techni estefani ID = [id number] for AN RON BAIRD POCT-GLUCOSE [id number] 18:15:00 Test Item Value Reference Range Interpretation Comments POC-GLUCOSE METER 160 mg/dL 70-110 H : TESTED A T [facility] 6720 (BEAKER) (test code = [facility], [facility]8) 54157: Repairer Maintenance Building/Techni estefani ID = [id number] for Celi Jesus POCT-GLUCOSE [id number] 14:24:00 Test Item Value Reference Range Interpretation Comments POC-GLUCOSE METER 182 mg/dL 70-110 H : TESTED A T [facility] 6720 (BEAKER) (test code = [facility], [facility]8) 41317: Repairer Maintenance Building/Techni estefani ID = [id number] for Celi Jesus POCT-GLUCOSE [id number] 09:44:00 Test Item Value Reference Range Interpretation Comments POC-GLUCOSE METER 146 mg/dL 70-110 H : TESTED A T [facility] 6720 (BEAKER) (test code = [facility], [facility]8) 08231: Repairer Maintenance Building/Techni estefani ID = [id number] for Celi Jesus BASIC METABOLIC [id number] 07:20:00 Test Item Value Reference Range Interpretation [...] S NOT APPLICABLE FOR DIALYSIS PATIEN TS. Repairer Maintenance Building ID - PIAYA LCBC W/PLT COUNT & AUTO [id number] 05:47:00 Test Item Value Reference Range Interpretation [...] PERCENT (BEAKER) (test code = 2801) POCT-GLUCOSE [id number] 05:39:00 Test Item Value Reference Range Interpretation Comments POC-GLUCOSE METER 200 mg/dL 70-110 H : TESTED A T [facility] 6720 (BEAKER) (test code = [facility], 1538) 51089: Repairer Maintenance Building/Techni estefani ID = [id number] for CHRIS MAJANO POCT-GLUCOSE [id number] 05:35:00 Test Item Value Reference Range Interpretation Comments POC-GLUCOSE METER 120 mg/dL 70-110 H : TESTED A T [facility] 6720 (BEAKER) (test code = [facility], [facility]8) 49305: Repairer Maintenance Building/Techni estefani ID = [id number] for EVONNE RUBY VIAL POCT-GLUCOSE [id number] 05:25:00 Test Item Value Reference Range Interpretation Comments POC-GLUCOSE METER 126 mg/dL 70-110 H : TESTED A T [facility] 6720 (AKER) (test code = [facility], 1538) 14286: Repairer Maintenance Building/Techni estefani ID = [id number] for Me Mila noblefer POCT-GLUCOSE [id number] 05:19:00 Test Item Value Reference Range Interpretation Comments POC-GLUCOSE METER 103 mg/dL 70-110 : TESTED A T [facility] 6720 (BEAKER) (test code = [facility], 1538) 68498: Repairer Maintenance Building/Techni estefani ID = [id number] for Me ndez, Celi HEPATITIS B SURFACE [id number] 11:26:00 Test Item Value Reference Range Interpretation Comments HEPATITIS B SURFACE ANTIGEN (2) Nonreactive Nonreactive (AKER) (test code = 2585) Specimen is considered negative for HBsAg.POCT-GLUCOSE [id number] 21:38:00 Test Item Value Reference Range Interpretation Comments POC-GLUCOSE METER 170 mg/dL 70-110 H : TESTED A T [facility] 6720 (BEAKER) (test code = [facility], 1538) 27755: Repairer Maintenance Building/Techni estefani ID = [id number] for AN RON BAIRD POCT-GLUCOSE [id number] 17:00:00 Test Item Value Reference Range Interpretation Comments POC-GLUCOSE METER 150 mg/dL 70-110 H : TESTED A T [facility] 6720 (BEAKER) (test code = [facility], [facility]8) 76548: Repairer Maintenance Building/Techni estefani ID = [id number] for Claudia galaviz, Katie POCT-GLUCOSE [id number] 08:37:00 Test Item Value Reference Range Interpretation Comments POC-GLUCOSE METER 105 mg/dL 70-110 : TESTED A T [facility] 6720 (BEAKER) (test code = [facility], [facility]8) 35963: Repairer Maintenance Building/Techni estefani ID = [id number] for Claudia galaviz, Katie POCT-GLUCOSE [id number] 17:56:00 Test Item Value Reference Range Interpretation Comments POC-GLUCOSE METER 96 mg/dL 70-110 : TESTED A T [facility] 6720 (BEAKER) (test code = [facility], [facility]8) 40351: Repairer Maintenance Building/Techni estefani ID = [id number] for COLEEN LEWIS ROSE BLOOD GAS, [id number] 17:17:00 Test Item Value Reference Range Interpretation [...] code = 1819) 90.0 % SODIUM NA-STAT [id number] 17:17:00 Test Item Value Reference Range Interpretation Comments SODIUM (BEAKER) (test code = 381) 134 meq/L 136-145 L HGB/HCT (H&H) - STAT [id number] 17:17:00 Test Item Value Reference Range Interpretation Comments HEMOGLOBIN (BEAKER) (test code = 11.4 g/dL 13.0-16.8 L 410) HEMATOCRIT (BEAKER) (test code = 34.0 % 40.0-50.0 L 411) CALCIUM, [id number] 17:17:00 Test Item Value Reference Range Interpretation Comments CALCIUM IONIZED (BEAKER) (test 1.22 mmol/L 1.12-1.27 code = 698) PH, BLOOD (BEAKER) (test code = 7.30 1810) GLUCOSE-STAT [id number] 17:16:00 Test Item Value Reference Range Interpretation Comments GLUCOSE RANDOM (BEAKER) (test code = 92 mg/dL 70-110 652) POTASSIUM-STAT [id number] 17:16:00 Test Item Value Reference Range Interpretation Comments POTASSIUM (BEAKER) (test code = 4.3 meq/L 3.6-5.5 379) CALCIUM, [id number] 15:59:00 Test Item Value Reference Range Interpretation Comments CALCIUM IONIZED (BEAKER) (test 1.07 mmol/L 1.12-1.27 L code = 698) PH, BLOOD (BEAKER) (test code = 7.48 1810) BLOOD GAS, [id number] 15:59:00 Test Item Value Reference Range Interpretation [...] code = 1819) 50.0 % SODIUM NA-STAT [id number] 15:59:00 Test Item Value Reference Range Interpretation Comments SODIUM (BEAKER) (test code = 381) 133 meq/L 136-145 L HGB/HCT (H&H) - STAT [id number] 15:59:00 Test Item Value Reference Range Interpretation Comments HEMOGLOBIN (BEAKER) (test code = 10.8 g/dL 13.0-16.8 L 410) HEMATOCRIT (BEAKER) (test code = 32.0 % 40.0-50.0 L 411) GLUCOSE-STAT [id number] 15:58:00 Test Item Value Reference Range Interpretation Comments GLUCOSE RANDOM (BEAKER) (test code 101 mg/dL 70-110 = 652) POTASSIUM-STAT [id number] 15:58:00 Test Item Value Reference Range Interpretation Comments POTASSIUM (BEAKER) (test code = 4.1 meq/L 3.6-5.5 379) CALCIUM, [id number] 15:12:00 Test Item Value Reference Range Interpretation Comments CALCIUM IONIZED (BEAKER) (test 1.07 mmol/L 1.12-1.27 L code = 698) PH, BLOOD (BEAKER) (test code = 7.48 1810) BLOOD GAS, [id number] 15:12:00 Test Item Value Reference Range Interpretation [...] code = 1819) 50.0 % SODIUM NA-STAT [id number] 15:12:00 Test Item Value Reference Range Interpretation Comments SODIUM (BEAKER) (test code = 381) 134 meq/L 136-145 L GLUCOSE-STAT [id number] 15:12:00 Test Item Value Reference Range Interpretation Comments GLUCOSE RANDOM (BEAKER) (test code = 64 mg/dL 70-110 L 652) HGB/HCT (H&H) - STAT [id number] 15:12:00 Test Item Value Reference Range Interpretation Comments HEMOGLOBIN (BEAKER) (test code = 10.9 g/dL 13.0-16.8 L 410) HEMATOCRIT (BEAKER) (test code = 32.0 % 40.0-50.0 L 411) POTASSIUM-STAT [id number] 15:10:00 Test Item Value Reference Range Interpretation Comments POTASSIUM (BEAKER) (test code = 4.2 meq/L 3.6-5.5 379) SARS-COV2/RT-PCR ([facility])2019-10-18 09:21:00 Test Item Value Reference Range Interpretation Comments SARS-COV2/RT-PCR (test code Negative Not Detected, Negative, = 8299951) See external report for linked test SARS-COV-2 PERFORMING LAB [facility] (test code = 9912986) Negative results do not preclude SARS-CoV-2 infection [...] of the Act.Fact Sheet for Healthcare Pro viders:https://www.[employer].com/Documents/Xpert%20Xpress%20SARS%20CoV-2/Fact%20Sh eets/302-3802%94DJSW-BSA-0%20HEALTHCARE%20PROVIDERS%20FACT%20SHEET.pdfFact Sheet for Healthcare Patients:https://www.[employer]/Documents/Xpert%20Xpress%20SARS%20CoV-2/Fact%20Sheets/302-3801%20SARS-COV -2%20PATIENT%20FACT%20SHEET.pdfPerforming Laboratory:[facility], [place] [address]UJG AND CREATININE [id number] 08:45:00 Test Item Value Reference Range Interpretation Comments BLOOD UREA NITROGEN 58 mg/dL 7-21 H (BEAKER) (test code = 354) CREATININE (BEAKER) 7.72 mg/dL 0.57-1.25 H (test code = 358) BUN/CREAT RATIO 8 Unable to ca lculate (BEAKER) (test code due to n on-numeric = 2236689781) results EGFR (BEAKER) (test 7 mL/min/1.73 ESTIMAT ED GFR IS code = 1092) sq m NOT ACCURATE CREATININE CLEARANCE IN PREDICTING GLOMERULAR FILTRATION RATE . ESTIMATED GFR I S NOT APPLICABLE FOR DIALYSIS PATIEN TS. Repairer Maintenance Building ID - [id number] 08:43:00 Test Item Value Reference Range Interpretation Comments SODIUM (BEAKER) (test code = 381) 137 meq/L 136-145 POTASSIUM (BEAKER) (test code = 5.1 meq/L 3.5-5.1 379) CHLORIDE (BEAKER) (test code = 382) 100 meq/L 98-107 CO2 (BEAKER) (test code = 355) 23 meq/L 22-29 Repairer Maintenance Building ID - [id number] 08:43:00 Test Item Value Reference Range Interpretation Comments GLUCOSE RANDOM (BEAKER) (test code 157 mg/dL 70-105 H = 652) Repairer Maintenance Building ID - [id number] 08:16:00 Test Item Value Reference Range Interpretation Comments HEMOGLOBIN (BEAKER) (test code = 11.1 GM/DL 13.7-17.5 L 410) Repairer Maintenance Building ID - 6000PLATELET [id number] 08:16:00 Test Item Value Reference Range Interpretation Comments PLATELET COUNT (BEAKER) (test 259 K/CU MM 150-450 code = 756) Repairer Maintenance Building ID - 6000POCT-GLUCOSE [id number] 06:26:00 Test Item Value Reference Range Interpretation Comments POC-GLUCOSE METER 129 mg/dL 70-110 H : TESTED A T [facility] 6720 (BEAKER) (test code [place], = 1538) 24506: Repairer Maintenance Building/Techni estefani ID = [id number] for JORD AN, LACRYSTAL BUN AND CREATININE [id number] 10:25:00 Test Item Value Reference Range Interpretation [...] S NOT APPLICABLE FOR DIALYSIS PATIEN TS. Repairer Maintenance Building ID - [id number] 10:23:00 Test Item Value Reference Range Interpretation Comments SODIUM (BEAKER) (test code = 381) 140 meq/L 136-145 POTASSIUM (BEAKER) (test code = 4.5 meq/L 3.5-5.1 379) CHLORIDE (BEAKER) (test code = 382) 101 meq/L 98-107 CO2 (BEAKER) (test code = 355) 26 meq/L 22-29 Repairer Maintenance Building ID - [id number] 10:23:00 Test Item Value Reference Range Interpretation Comments GLUCOSE RANDOM (BEAKER) (test code 157 mg/dL 70-105 H = 652) Repairer Maintenance Building ID - [id number] 10:11:00 Test Item Value Reference Range Interpretation Comments HEMOGLOBIN (BEAKER) (test code = 12.2 GM/DL 13.7-17.5 L 410) Repairer Maintenance Building ID - [id number] CULTURE + SMEAR (NON-SPUTUM)2019-08-01 12:08:00 Test Item Value Reference Range Interpretation Comments CULTURE (BEAKER) (test No acid-fast bacilli code = 1095) isolated in 42 days AFB SMEAR (BEAKER) No acid fast bacilli (test code = 994) seen FUNGUS CULTURE + [id number] 17:59:00 Test Item Value Reference Range Interpretation Comments CULTURE (BEAKER) (test No fungus isolated in code = 1095) 28 days FUNGUS SMEAR (BEAKER) No fungal elements seen (test code = 1406) POCT-GLUCOSE [id number] 12:17:00 Test Item Value Reference Range Interpretation Comments POC-GLUCOSE METER 159 mg/dL 70-110 H : TESTED A T [facility] 6720 (BEAKER) (test code = [facility] [employer] [facility], 1538) 13539: Repairer Maintenance Building/Techni estefani ID = [id number] for BLESSING TUTTLE POCT-GLUCOSE [id number] 08:03:00 Test Item Value Reference Range Interpretation Comments POC-GLUCOSE METER 119 mg/dL 70-110 H : TESTED A T [facility] 6720 (BEAKER) (test code = [employer] [facility], 1538) 55083: Repairer Maintenance Building/Techni estefani ID = [id number] for Izaiah Barber BASIC METABOLIC [id number] 05:28:00 Test Item Value Reference Range Interpretation [...] S NOT APPLICABLE FOR DIALYSIS PATIEN TS. Repairer Maintenance Building ID - JAQUELINE [id number] 05:26:00 Test Item Value Reference Range Interpretation Comments PHOSPHORUS (BEAKER) (test code = 6.1 mg/dL 2.3-4.7 H 604) Repairer Maintenance Building ID - JAQUELINE [id number] 05:26:00 Test Item Value Reference Range Interpretation Comments MAGNESIUM (BEAKER) (test code = 2.5 mg/dL 1.6-2.6 627) Repairer Maintenance Building ID - JAQUELINE MCBC W/PLT COUNT & AUTO [id number] 05:12:00 Test Item Value Reference Range Interpretation [...] PERCENT (BEAKER) (test code = 2801) POCT-GLUCOSE [id number] 21:05:00 Test Item Value Reference Range Interpretation Comments POC-GLUCOSE METER 250 mg/dL 70-110 H : TESTED A T [facility] 6720 (BEAKER) (test code = [facility], 1538) 78953: Repairer Maintenance Building/Techni estefani ID = [id number] for RO AMALIA, SERENA POCT-GLUCOSE [id number] 16:53:00 Test Item Value Reference Range Interpretation Comments POC-GLUCOSE METER 217 mg/dL 70-110 H : TESTED A T [facility] 6720 (BEAKER) (test code = [facility], 1538) 48433: Repairer Maintenance Building/Techni estefani ID = [id number] for HU NTER, HIWITHA POCT-GLUCOSE [id number] 11:50:00 Test Item Value Reference Range Interpretation Comments POC-GLUCOSE METER 208 mg/dL 70-110 H : TESTED A T [facility] 6720 (BEAKER) (test code = [facility], 1538) 33577: Repairer Maintenance Building/Techni estefani ID = [id number] for HU NTER, HIWITHA ANAEROBIC [id number] 10:57:00 Test Item Value Reference Range Interpretation Comments CULTURE (BEAKER) (test code A 4+ Prevotella bivia = 1095) POCT-GLUCOSE [id number] 07:24:00 Test Item Value Reference Range Interpretation Comments POC-GLUCOSE METER 231 mg/dL 70-110 H : TESTED A T [facility] 6720 (BEAKER) (test code = [place], 1538) 44680: Repairer Maintenance Building/Techni estefani ID = [id number] for ZOILA SILVA BASIC METABOLIC [id number] 04:18:00 Test Item Value Reference Range Interpretation [...] S NOT APPLICABLE FOR DIALYSIS PATIEN TS. Repairer Maintenance Building ID Benjie LUEVANO [id number] 04:17:00 Test Item Value Reference Range Interpretation Comments PHOSPHORUS (BEAKER) (test code = 5.1 mg/dL 2.3-4.7 H 604) Repairer Maintenance Building ID Benjie LUEVANO [id number] 04:17:00 Test Item Value Reference Range Interpretation Comments MAGNESIUM (BEAKER) (test code = 2.4 mg/dL 1.6-2.6 627) Repairer Maintenance Building ID Benjie LUEVANO WCBC W/PLT COUNT & AUTO [id number] 04:17:00 Test Item Value Reference Range Interpretation [...] PERCENT (BEAKER) (test code = 2801) POCT-GLUCOSE [id number] 00:03:00 Test Item Value Reference Range Interpretation Comments POC-GLUCOSE METER 245 mg/dL 70-110 H : TESTED A T [facility] 6720 (BEAKER) (test code = [facility], 153) 98441: Repairer Maintenance Building/Techni estefani ID = [id number] for FRANCK SKELTON POCT-GLUCOSE [id number] 21:18:00 Test Item Value Reference Range Interpretation Comments POC-GLUCOSE METER 252 mg/dL 70-110 H : TESTED A T [facility] 6720 (BEAKER) (test code = [facility], 1538) 69475: Repairer Maintenance Building/Techni estefani ID = [id number] for DA VIS KAVYA POCT-GLUCOSE [id number] 16:53:00 Test Item Value Reference Range Interpretation Comments POC-GLUCOSE METER 175 mg/dL 70-110 H : TESTED A T [facility] 6720 (BEAKER) (test code = [facility], 153) 18036: Repairer Maintenance Building/Techni estefani ID = [id number] for Do minguez, Isaías POCT-GLUCOSE [id number] 13:58:00 Test Item Value Reference Range Interpretation Comments POC-GLUCOSE METER 191 mg/dL 70-110 H : TESTED A T [facility] 6720 (BEAKER) (test code = [facility], 153) 03579: Repairer Maintenance Building/Techni estefani ID = [id number] for Do minguez, Isaías POCT-GLUCOSE [id number] 11:18:00 Test Item Value Reference Range Interpretation Comments POC-GLUCOSE METER 88 mg/dL 70-110 : TESTED A T [facility] 6720 (BEAKER) (test code = [facility], 153) 35159: Repairer Maintenance Building/Techni estefani ID = [id number] for CORNELIUS SANDY POCT-GLUCOSE [id number] 07:59:00 Test Item Value Reference Range Interpretation Comments POC-GLUCOSE METER 112 mg/dL 70-110 H : TESTED A T [facility] 6720 (BEAKER) (test code = [facility], 153) 43781: Repairer Maintenance Building/Techni estefani ID = [id number] for CLAUDIA FUENTES, CORNELIUS BASIC METABOLIC [id number] 07:35:00 Test Item Value Reference Range Interpretation [...] S NOT APPLICABLE FOR DIALYSIS PATIEN TS. Repairer Maintenance Building ID - PIAYA [id number] 07:27:00 Test Item Value Reference Range Interpretation Comments PHOSPHORUS (BEAKER) (test code = 7.1 mg/dL 2.3-4.7 H 604) Repairer Maintenance Building ID - PIZAYRA [id number] 07:27:00 Test Item Value Reference Range Interpretation Comments MAGNESIUM (BEAKER) (test code = 2.5 mg/dL 1.6-2.6 627) Repairer Maintenance Building ID - PIZAYRA LCBC W/PLT COUNT & AUTO [id number] 06:36:00 Test Item Value Reference Range Interpretation [...] PERCENT (BEAKER) (test code = 2801) POCT-GLUCOSE [id number] 21:42:00 Test Item Value Reference Range Interpretation Comments POC-GLUCOSE METER 171 mg/dL 70-110 H : TESTED A T [facility] 6720 (BEAKER) (test code = [facility], 1538) 91708: Repairer Maintenance Building/Techni estefani ID = [id number] for BRAYDEN SAM KAVYA POCT-GLUCOSE [id number] 16:53:00 Test Item Value Reference Range Interpretation Comments POC-GLUCOSE METER 219 mg/dL 70-110 H : TESTED A T [facility] 6720 (BEAKER) (test code = [facility], 1538) 05137: Repairer Maintenance Building/Techni estefani ID = [id number] for OR PHEY, DALE POCT-GLUCOSE [id number] 12:15:00 Test Item Value Reference Range Interpretation Comments POC-GLUCOSE METER 181 mg/dL 70-110 H : TESTED A T [facility] 6720 (BEAKER) (test code = [facility], 1538) 43322: Repairer Maintenance Building/Techni estefani ID = [id number] for OR PHEY, DALE POCT-GLUCOSE [id number] 08:04:00 Test Item Value Reference Range Interpretation Comments POC-GLUCOSE METER 125 mg/dL 70-110 H : TESTED A T [facility] 6720 (BEAKER) (test code = [facility], 1538) 74549: Repairer Maintenance Building/Techni estefani ID = [id number] for OR PHEY, DALE BASIC METABOLIC [id number] 05:56:00 Test Item Value Reference Range Interpretation [...] S NOT APPLICABLE FOR DIALYSIS PATIEN TS. Repairer Maintenance Building ID - DANITZA [id number] 05:16:00 Test Item Value Reference Range Interpretation Comments PHOSPHORUS (BEAKER) (test code = 5.7 mg/dL 2.3-4.7 H 604) Repairer Maintenance Building ID - DANITZA [id number] 05:16:00 Test Item Value Reference Range Interpretation Comments MAGNESIUM (BEAKER) (test code = 2.4 mg/dL 1.6-2.6 627) Repairer Maintenance Building ID - PIAYA LCBC W/PLT COUNT & AUTO [id number] 05:04:00 Test Item Value Reference Range Interpretation [...] PERCENT (BEAKER) (test code = 2801) POCT-GLUCOSE [id number] 21:56:00 Test Item Value Reference Range Interpretation Comments POC-GLUCOSE METER 182 mg/dL 70-110 H : TESTED A T [facility] 6720 (BEAKER) (test code = [facility], 1538) 79856: Repairer Maintenance Building/Techni estefani ID = [id number] for Hi Cynthia tong POCT-GLUCOSE [id number] 17:09:00 Test Item Value Reference Range Interpretation Comments POC-GLUCOSE METER 260 mg/dL 70-110 H : TESTED A T [facility] 6720 (BEAKER) (test code = [facility], 1538) 29906: Repairer Maintenance Building/Techni estefani ID = [id number] for OR DALE URRUTIA POCT-GLUCOSE [id number] 12:02:00 Test Item Value Reference Range Interpretation Comments POC-GLUCOSE METER 244 mg/dL 70-110 H : TESTED A T [facility] 6720 (BEAKER) (test code = [facility], 1538) 70461: Repairer Maintenance Building/Techni estefani ID = [id number] for OR DALE URRUTIA BASIC METABOLIC [id number] 08:22:00 Test Item Value Reference Range Interpretation [...] S NOT APPLICABLE FOR DIALYSIS PATIEN TS. Repairer Maintenance Building ID - [id number] 07:57:00 Test Item Value Reference Range Interpretation Comments PHOSPHORUS (BEAKER) (test code = 5.4 mg/dL 2.3-4.7 H 604) Repairer Maintenance Building ID - [id number] 07:57:00 Test Item Value Reference Range Interpretation Comments MAGNESIUM (BEAKER) (test code = 2.3 mg/dL 1.6-2.6 627) Repairer Maintenance Building ID - LMPOCT-GLUCOSE [id number] 07:55:00 Test Item Value Reference Range Interpretation Comments POC-GLUCOSE METER 154 mg/dL 70-110 H : TESTED A T [facility] 6720 (BEAKER) (test code = [facility] [place], 1538) 24050: Repairer Maintenance Building/Techni estefani ID = [id number] for OR RENAN DALE CBC W/PLT COUNT & AUTO [id number] 06:10:00 Test Item Value Reference Range Interpretation [...] (BEAKER) (test code = 2801) VANCOMYCIN LEVEL, [id number] 06:06:00 Test Item Value Reference Range Interpretation Comments VANCOMYCIN RANDOM (BEAKER) (test 15.8 ug/mL code = 523) Reference Range: No NormalsOperator ID - LMPOCT-GLUCOSE [id number] 21:02:00 Test Item Value Reference Range Interpretation Comments POC-GLUCOSE METER 231 mg/dL 70-110 H : TESTED A T [facility] 6720 (BEAKER) (test code = [facility], 1538) 41010: Repairer Maintenance Building/Techni estefani ID = [id number] for WESTLEY RONDON POCT-GLUCOSE [id number] 17:06:00 Test Item Value Reference Range Interpretation Comments POC-GLUCOSE METER 227 mg/dL 70-110 H : TESTED A T [facility] 6720 (BEAKER) (test code = [facility], 1538) 23286: Repairer Maintenance Building/Techni estefani ID = [id number] for OR DALE URRUTIA POCT-GLUCOSE [id number] 12:13:00 Test Item Value Reference Range Interpretation Comments POC-GLUCOSE METER 147 mg/dL 70-110 H : TESTED A T [facility] 6720 (BEAKER) (test code = DASIA Garcia [facility], 1538) 10559: Repairer Maintenance Building/Techni estefani ID = [id number] for OR DALE URRUTIA POCT-GLUCOSE [id number] 11:39:00 Test Item Value Reference Range Interpretation Comments POC-GLUCOSE METER 138 mg/dL 70-110 H : TESTED A T [facility] 6720 (BEAKER) (test code = DASIA Garcia [facility], 1538) 53497: Repairer Maintenance Building/Techni estefani ID = [id number] for Izaiah Barber TISSUE [id number] 09:01:00Surgical Pathology Report Case: [id number] Authorizing Provider: Star Cloud DPM Collected: 06/19/2019 11:18 AM Ordering Location: [facility] PERIOPERATIVE Received: 06/19/2019 11:51 AM SERVICES Pathologist: Jonathan Hutchison MD Specimen: Foot, Right, right forefoot PART A RIGHT FOOT, TRANSMETATARSAL AMPUTATION:GANGRENOUS NECROSIS OF SKIN AND SOFT TISSUE.UNDERLYING ACUTE AND CHRONICOSTEOMYELITIS.STATUS POST PRIOR AMPUTATION.BONE AND SOFT TISSUE MARGINS ARE INVOLVED. Signing Pathologist Direct Phone Line: [phone] signed by Jonathan Hutchison MD on 06/22/2019 at 9:01 [id number], [id number] diagnosis: Gangrene, nonhealing wound of right heelA. [...] All three digits display gardner-yellow thickened nails. Ophthalmic Pathologist sections are submitted as follows:Section code: A1, skin and soft tissue margin en faceA2, previous site of amputationA3, skin lesion and underlying affected bone following decalcificationA4-A5, bone margin en face following decalcificationPA/pl PERFORMED.[facility], Department of Pathology, [address] [place] [address], [facility], [facility] of [facility], [address] [place] [id number], [facility], [facility] of [facility], [address] [place] [id number], HQVS-GLUCOSE [id number] 08:12:00 Test Item Value Reference Range Interpretation Comments POC-GLUCOSE METER 123 mg/dL 70-110 H : TESTED A T [facility] 6720 (BEAKER) (test code = DASIA Garcia [facility], 1538) [address]: Repairer Maintenance Building/Techni estefani ID = [id number] for Izaiah Barber BASIC METABOLIC [id number] 06:52:00 Test Item Value Reference Range Interpretation [...] S NOT APPLICABLE FOR DIALYSIS PATIEN TS. Repairer Maintenance Building ID - BASSEM [id number] 06:51:00 Test Item Value Reference Range Interpretation Comments PHOSPHORUS (BEAKER) (test code = 6.3 mg/dL 2.3-4.7 H 604) Repairer Maintenance Building ID Benjie LUEVANO [id number] 06:51:00 Test Item Value Reference Range Interpretation Comments MAGNESIUM (BEAKER) (test code = 2.5 mg/dL 1.6-2.6 627) Repairer Maintenance Building ID - BASSEM WCBC W/PLT COUNT & AUTO [id number] 06:32:00 Test Item Value Reference Range Interpretation [...] (BEAKER) (test code = 2801) VANCOMYCIN LEVEL, [id number] 06:10:00 Test Item Value Reference Range Interpretation Comments VANCOMYCIN RANDOM (BEAKER) (test 19.5 ug/mL code = 523) Reference Range: No NormalsOperator ID - DBPOCT-GLUCOSE [id number] 21:39:00 Test Item Value Reference Range Interpretation Comments POC-GLUCOSE METER 212 mg/dL 70-110 H : TESTED A T [facility] 6720 (BEAKER) (test code = [facility], 153) 07347: Repairer Maintenance Building/Techni estefani ID = [id number] for EA GLIN, CARMELALISANGITAIA POCT-GLUCOSE [id number] 17:03:00 Test Item Value Reference Range Interpretation Comments POC-GLUCOSE METER 192 mg/dL 70-110 H : TESTED A T [facility] 6720 (BEAKER) (test code = [facility], 153) 21487: Repairer Maintenance Building/Techni estefani ID = [id number] for HU NTER, HIWITHA POCT-GLUCOSE [id number] 12:20:00 Test Item Value Reference Range Interpretation Comments POC-GLUCOSE METER 191 mg/dL 70-110 H : TESTED A T [facility] 6720 (BEAKER) (test code = [facility], 153) 83219: Repairer Maintenance Building/Techni estefani ID = [id number] for CLAUDIA FONTANA SURGICALLY OBTAINED CULTURE + GRAM [id number] 11:27:00 Test Item Value Reference Range Interpretation Comments CULTURE (BEAKER) (test code No growth = 1095) GRAM STAIN RESULT (BEAKER) 3+ WBCs (test code = 1123) GRAM STAIN RESULT (BEAKER) No organisms seen (test code = 06771) SPIN/CONCENTRATION [id number] 08:46:00 Test Item Value Reference Range Interpretation Comments CONCENTRATION CHARGED (BEAKER) (test Done code = 2657) POCT-GLUCOSE [id number] 08:19:00 Test Item Value Reference Range Interpretation Comments POC-GLUCOSE METER 134 mg/dL 70-110 H : TESTED A T [facility] 6720 (BEAKER) (test code = [facility] [place], 1538) 14090: Repairer Maintenance Building/Techni estefani ID = [id number] for ESTEFANY SILVAWITHVikas BASIC METABOLIC [id number] 04:44:00 Test Item Value Reference Range Interpretation [...] S NOT APPLICABLE FOR DIALYSIS PATIEN TS. Repairer Maintenance Building ID - JAQUELINE [id number] 03:56:00 Test Item Value Reference Range Interpretation Comments PHOSPHORUS (BEAKER) (test code = 6.2 mg/dL 2.3-4.7 H 604) Repairer Maintenance Building ID - JAQUELINE [id number] 03:56:00 Test Item Value Reference Range Interpretation Comments MAGNESIUM (BEAKER) (test code = 2.3 mg/dL 1.6-2.6 627) Repairer Maintenance Building ID - JAQUELINE [facility]BC W/PLT COUNT & AUTO [id number] 03:44:00 Test Item Value Reference Range Interpretation [...] PERCENT (BEAKER) (test code = 2801) POCT-GLUCOSE [id number] 20:47:00 Test Item Value Reference Range Interpretation Comments POC-GLUCOSE METER 234 mg/dL 70-110 H : TESTED A T [facility] 6720 (BEAKER) (test code = [facility], 153) 45914: Repairer Maintenance Building/Techni estefani ID = [id number] for EA GLINCARMELALISSIA POCT-GLUCOSE [id number] 17:12:00 Test Item Value Reference Range Interpretation Comments POC-GLUCOSE METER 192 mg/dL 70-110 H : TESTED A T [facility] 6720 (BEAKER) (test code = [facility], 153) 46039: Repairer Maintenance Building/Techni estefani ID = [id number] for HU NTER, HIWITHA POCT-GLUCOSE [id number] 12:35:00 Test Item Value Reference Range Interpretation Comments POC-GLUCOSE METER 138 mg/dL 70-110 H : TESTED A T [facility] 6720 (BEAKER) (test code = [facility], 1538) 92966: Repairer Maintenance Building/Techni estefani ID = [id number] for HU NTER, HIWITHA POCT-GLUCOSE [id number] 10:12:00 Test Item Value Reference Range Interpretation Comments POC-GLUCOSE METER 101 mg/dL 70-110 : [facility] (test code = [facility], 1538) 91446: Repairer Maintenance Building/Techni estefani ID = [id number] for Tu pas, Bassem Hernandez POCT-GLUCOSE [id number] 08:51:00 Test Item Value Reference Range Interpretation Comments POC-GLUCOSE METER 96 mg/dL 70-110 : TESTED A T [facility] 6720 (BEAKER) (test code = [facility], 1538) 64542: Repairer Maintenance Building/Techni estefani ID = [id number] for Tupa s, Bassem Hernandez BASIC METABOLIC [id number] 05:04:00 Test Item Value Reference Range Interpretation [...] S NOT APPLICABLE FOR DIALYSIS PATIEN TS. Repairer Maintenance Building ID - DANITZA LVANCOMYCIN LEVEL, [id number] 04:56:00 Test Item Value Reference Range Interpretation Comments VANCOMYCIN RANDOM (BEAKER) (test 18.7 ug/mL code = 523) Reference Range: No NormalsOperator ID - DANITZA [id number] 04:49:00 Test Item Value Reference Range Interpretation Comments PHOSPHORUS (BEAKER) (test code = 8.4 mg/dL 2.3-4.7 H 604) Repairer Maintenance Building ID - DANITZA [id number] 04:49:00 Test Item Value Reference Range Interpretation Comments MAGNESIUM (BEAKER) (test code = 2.5 mg/dL 1.6-2.6 627) Repairer Maintenance Building ID - DANITZA LCBC W/PLT COUNT & AUTO [id number] 04:22:00 Test Item Value Reference Range Interpretation [...] code = 2801) RAD, FOOT, 2 VIEWS, [id number] 22:40:00Reason for exam:->post op TMA rightFINAL REPORT [...] T [facility] (BEAKER) (test code = [facility], 1538) 48683: Repairer Maintenance Building/Techni estefani ID = [id number] for DA DARNELL SAMENZO POCT-GLUCOSE [id number] 21:06:00 Test Item Value Reference Range Interpretation Comments POC-GLUCOSE METER 214 mg/dL 70-110 H : TESTED A T [facility] 6720 (BEAKER) (test code = [facility], 1538) 00843: Repairer Maintenance Building/Techni estefani ID = [id number] for RENEE HN, BLESSING POCT-GLUCOSE [id number] 21:05:00 Test Item Value Reference Range Interpretation Comments POC-GLUCOSE METER 131 mg/dL 70-110 H : TESTED A T [facility] 6720 (BEAKER) (test code = [facility] [facility] [place] [employer] [facility], 1538) 96379: Repairer Maintenance Building/Techni estefani ID = [id number] for RENEE HN, BLESSING POCT-GLUCOSE [id number] 21:05:00 Test Item Value Reference Range Interpretation Comments POC-GLUCOSE METER 131 mg/dL 70-110 H : TESTED A T [facility] 6720 (BEAKER) (test code = [facility] [facility] [place] [employer] [facility], 1538) 26025: Repairer Maintenance Building/Techni estefani ID = [id number] for RENEE HN, BLESSING POCT-GLUCOSE [id number] 12:01:00 Test Item Value Reference Range Interpretation Comments POC-GLUCOSE METER 135 mg/dL 70-110 H : TESTED A T [facility] 6720 (BEAKER) (test code = [facility], 1538) 35989: Repairer Maintenance Building/Techni estefani ID = [id number] for GABRIELA OLMSTEAD POCT-GLUCOSE [id number] 09:10:00 Test Item Value Reference Range Interpretation Comments POC-GLUCOSE METER 200 mg/dL 70-110 H : TESTED A T [facility] 6720 (BEAKER) (test code = [facility] [place], 1538) 13795: Repairer Maintenance Building/Techni estefani ID = [id number] for FRANCK SKELTON CBC W/PLT COUNT & AUTO [id number] 05:34:00 Test Item Value Reference Range Interpretation [...] (BEAKER) (test code = 2801) BASIC METABOLIC [id number] 05:28:00 Test Item Value Reference Range Interpretation [...] S NOT APPLICABLE FOR DIALYSIS PATIEN TS. Repairer Maintenance Building ID - BASSEM [id number] 05:27:00 Test Item Value Reference Range Interpretation Comments PHOSPHORUS (BEAKER) (test code = 6.7 mg/dL 2.3-4.7 H 604) Repairer Maintenance Building ID - BASSEM [id number] 05:27:00 Test Item Value Reference Range Interpretation Comments MAGNESIUM (BEAKER) (test code = 2.3 mg/dL 1.6-2.6 627) Repairer Maintenance Building ID - BASSEM WVANCOMYCIN LEVEL, [id number] 05:25:00 Test Item Value Reference Range Interpretation Comments VANCOMYCIN RANDOM (BEAKER) (test 21.5 ug/mL code = 523) Reference Range: No NormalsOperator ID - BASSEM WPOCT-GLUCOSE [id number] 17:28:00 Test Item Value Reference Range Interpretation Comments POC-GLUCOSE METER 173 mg/dL 70-110 H : TESTED A T [facility] 6720 (BEAKER) (test code = [facility], 1538) 62351: Repairer Maintenance Building/Techni estefani ID = [id number] for OR PHEY, DALE POCT-GLUCOSE [id number] 14:19:00 Test Item Value Reference Range Interpretation Comments POC-GLUCOSE METER 133 mg/dL 70-110 H : TESTED A T [facility] 6720 (BEAKER) (test code = [facility], 1538) 59514: Repairer Maintenance Building/Techni estefani ID = [id number] for OR PHEY, DALE POCT-GLUCOSE [id number] 10:35:00 Test Item Value Reference Range Interpretation Comments POC-GLUCOSE METER 119 mg/dL 70-110 H : TESTED A T [facility] 6720 (BEAKER) (test code = [facility], 1538) 25863: Repairer Maintenance Building/Techni estefani ID = [id number] for Sonya Christian CBC W/PLT COUNT & AUTO [id number] 05:31:00 Test Item Value Reference Range Interpretation [...] (BEAKER) (test code = 2801) BASIC METABOLIC [id number] 05:17:00 Test Item Value Reference Range Interpretation [...] S NOT APPLICABLE FOR DIALYSIS PATIEN TS. Repairer Maintenance Building ID - JAQUELINE [id number] 05:16:00 Test Item Value Reference Range Interpretation Comments PHOSPHORUS (BEAKER) (test code = 7.5 mg/dL 2.3-4.7 H 604) Repairer Maintenance Building ID - JAQUELINE [id number] 05:16:00 Test Item Value Reference Range Interpretation Comments MAGNESIUM (BEAKER) (test code = 2.4 mg/dL 1.6-2.6 627) Repairer Maintenance Building ID - JAQUELINE MVANCOMYCIN LEVEL, [id number] 05:04:00 Test Item Value Reference Range Interpretation Comments VANCOMYCIN TROUGH (BEAKER) (test 25.9 ug/mL 10.0-20.0 H code = 522) Repairer Maintenance Building ID - JAQUELINE MPOCT-GLUCOSE [id number] 21:00:00 Test Item Value Reference Range Interpretation Comments POC-GLUCOSE METER 148 mg/dL 70-110 H : TESTED A T [facility] 6720 (BEAKER) (test code = [facility], 153) 48765: Repairer Maintenance Building/Techni estefani ID = [id number] for RO AMALIA, SERENA POCT-GLUCOSE [id number] 19:14:00 Test Item Value Reference Range Interpretation Comments POC-GLUCOSE METER 137 mg/dL 70-110 H : TESTED A T [facility] 6720 (BEAKER) (test code = [facility], 1538) 67847: Repairer Maintenance Building/Techni estefani ID = [id number] for BR ITTEN, CAMILLE POCT-GLUCOSE [id number] 17:46:00 Test Item Value Reference Range Interpretation Comments POC-GLUCOSE METER 205 mg/dL 70-110 H : TESTED A T [facility] 6720 (BEAKER) (test code = [facility], 1538) 15456: Repairer Maintenance Building/Techni estefani ID = [id number] for BR ITTEN, CAMILLE POCT-GLUCOSE [id number] 17:05:00 Test Item Value Reference Range Interpretation Comments POC-GLUCOSE METER 197 mg/dL 70-110 H : TESTED A T [facility] 6720 (BEAKER) (test code = [facility] [place], 1538) 90160: Repairer Maintenance Building/Techni estefani ID = [id number] for CAMILLE BETTS BASIC METABOLIC [id number] 05:57:00 Test Item Value Reference Range Interpretation [...] S NOT APPLICABLE FOR DIALYSIS PATIEN TS. Repairer Maintenance Building ID - DANITZA [id number] 05:54:00 Test Item Value Reference Range Interpretation Comments PHOSPHORUS (BEAKER) (test code = 6.2 mg/dL 2.3-4.7 H 604) Repairer Maintenance Building ID - DANITZA [id number] 05:54:00 Test Item Value Reference Range Interpretation Comments MAGNESIUM (BEAKER) (test code = 2.2 mg/dL 1.6-2.6 627) Repairer Maintenance Building ID - DANITZA LCBC W/PLT COUNT & AUTO [id number] 05:44:00 Test Item Value Reference Range Interpretation [...] PERCENT (BEAKER) (test code = 2801) POCT-GLUCOSE [id number] 21:37:00 Test Item Value Reference Range Interpretation Comments POC-GLUCOSE METER 262 mg/dL 70-110 H : TESTED A T [facility] 6720 (BEAKER) (test code = [facility], 153) 87662: Repairer Maintenance Building/Techni estefani ID = [id number] for KAVYA WHITMORE POCT-GLUCOSE [id number] 16:44:00 Test Item Value Reference Range Interpretation Comments POC-GLUCOSE METER 203 mg/dL 70-110 H : TESTED A T [facility] 6720 (BEAKER) (test code = [facility], 1538) 92549: Repairer Maintenance Building/Techni estefani ID = [id number] for NATE MONROY POCT-GLUCOSE [id number] 12:05:00 Test Item Value Reference Range Interpretation Comments POC-GLUCOSE METER 233 mg/dL 70-110 H : TESTED A T [facility] 6720 (BEAKER) (test code = [facility], 1538) 47126: Repairer Maintenance Building/Techni estefani ID = [id number] for HU NTER, HIWITHA POCT-GLUCOSE [id number] 08:18:00 Test Item Value Reference Range Interpretation Comments POC-GLUCOSE METER 146 mg/dL 70-110 H : TESTED A T [facility] 6720 (BEAKER) (test code = [facility], 1538) 07283: Repairer Maintenance Building/Techni estefani ID = [id number] for HU NTER, HIWITHA CBC W/PLT COUNT & AUTO [id number] 07:32:00 Test Item Value Reference Range Interpretation [...] CONCENTRATION Adequate (CELLAVISION)(BEAKER) (test code = 3438) Repairer Maintenance Building SAVANNA Cronin OverholtUser comments: Slide comments:BASIC METABOLIC PANEL 2019-06-16 [...] S NOT APPLICABLE FOR DIALYSIS PATIEN TS. Repairer Maintenance Building ID - JAQUELINE [id number] 06:29:00 Test Item Value Reference Range Interpretation Comments PHOSPHORUS (BEAKER) (test code = 4.9 mg/dL 2.3-4.7 H 604) Repairer Maintenance Building ID - JAQUELINE [id number] 06:29:00 Test Item Value Reference Range Interpretation Comments MAGNESIUM (BEAKER) (test code = 2.2 mg/dL 1.6-2.6 627) Repairer Maintenance Building ID - JAQUELINE MVANCOMYCIN LEVEL, [id number] 06:23:00 Test Item Value Reference Range Interpretation Comments VANCOMYCIN RANDOM (BEAKER) (test 31.1 ug/mL code = 523) Reference Range: No NormalsOperator ID - JAQUELINE MPOCT-GLUCOSE [id number] 21:18:00 Test Item Value Reference Range Interpretation Comments POC-GLUCOSE METER 233 mg/dL 70-110 H : TESTED A T [facility] 6720 (BEAKER) (test code = [facility], 1538) 81887: Repairer Maintenance Building/Techni estefani ID = [id number] for DA VIS KAVYA POCT-GLUCOSE [id number] 17:24:00 Test Item Value Reference Range Interpretation Comments POC-GLUCOSE METER 252 mg/dL 70-110 H : TESTED A T [facility] 6720 ([facility]) (test code = [facility], 1538) 12133: Repairer Maintenance Building/Techni estefani ID = [id number] for HU NTER, HIWITHA POCT-GLUCOSE [id number] 17:24:00 Test Item Value Reference Range Interpretation Comments POC-GLUCOSE METER 124 mg/dL 70-110 H : TESTED A T [facility] 6720 (BEAKER) (test code = [facility], 1538) 77938: Repairer Maintenance Building/Techni estefani ID = [id number] for HU NTER, HIWITHA [id number] 12:41:00 Test Item Value Reference Range Interpretation Comments ACTIVATED CLOTTING TIME 241 sec : 74 -137 seconds, (BEAKER) (test code = Baseli ne: TESTED AT 441) [facility] [facility], 770 30: Repairer Maintenance Building/Techni estefani ID = [id number] for CRYSTAL SHAH HEPATITIS B SURFACE [id number] 04:57:00 Test Item Value Reference Range Interpretation Comments HEPATITIS B SURFACE ANTIGEN (2) Nonreactive Nonreactive (BEAKER) (test code = 2585) Repairer Maintenance Building ID - LMBASIC METABOLIC [id number] 04:38:00 Test Item Value Reference Range Interpretation [...] S NOT APPLICABLE FOR DIALYSIS PATIEN TS. Repairer Maintenance Building ID - BASSEM [id number] 04:37:00 Test Item Value Reference Range Interpretation Comments PHOSPHORUS (BEAKER) (test code = 5.6 mg/dL 2.3-4.7 H 604) Repairer Maintenance Building ID - BASSEM [id number] 04:37:00 Test Item Value Reference Range Interpretation Comments MAGNESIUM (BEAKER) (test code = 2.2 mg/dL 1.6-2.6 627) Repairer Maintenance Building ID - BASSEM WCBC W/PLT COUNT & AUTO [id number] 04:34:00 Test Item Value Reference Range Interpretation [...] PERCENT (BEAKER) (test code = 2801) POCT-GLUCOSE [id number] 22:31:00 Test Item Value Reference Range Interpretation Comments POC-GLUCOSE METER 203 mg/dL 70-110 H : TESTED A T [facility] 6720 (BEAKER) (test code [facility], = 1538) 59209: Repairer Maintenance Building/Techni estefani ID = [id number] for Egbe , Emma POCT-GLUCOSE [id number] 21:30:00 Test Item Value Reference Range Interpretation Comments POC-GLUCOSE METER 205 mg/dL 70-110 H : TESTED A T [facility] 6720 (BEAKER) ([facility], 1538) 25261: Repairer Maintenance Building/Techni estefani ID = [id number] for FI TE, ARLEN POCT-GLUCOSE [id number] 16:56:00 Test Item Value Reference Range Interpretation Comments POC-GLUCOSE METER 210 mg/dL 70-110 H : TESTED A T [facility] 6720 (BEAKER) (test code = [facility] [place], 1538) 88763: Repairer Maintenance Building/Techni estefani ID = [id number] for MATEUS ROBLES, FOOT, MIN 3 VIEWS, [id number] 15:36:00Reason for exam:->Right foot gangrene, 2nd toe [...] MDReport Verified Date/Time: 06/14/2019 15:36:18 Reading Location: [address] Ortho Consult Reading Room BASIC METABOLIC [id number] 15:34:00 Test Item Value Reference Range Interpretation [...] S NOT APPLICABLE FOR DIALYSIS PATIEN TS. Repairer Maintenance Building ID - [id number] 15:33:00 Test Item Value Reference Range Interpretation Comments PHOSPHORUS (BEAKER) (test code = 4.8 mg/dL 2.3-4.7 H 604) Repairer Maintenance Building ID - [id number] 15:33:00 Test Item Value Reference Range Interpretation Comments MAGNESIUM (BEAKER) (test code = 2.2 mg/dL 1.6-2.6 627) Repairer Maintenance Building ID - BSCBC W/PLT COUNT & AUTO [id number] 15:20:00 Test Item Value Reference Range Interpretation [...] PERCENT (BEAKER) (test code = 2801) POCT-GLUCOSE [id number] 12:22:00 Test Item Value Reference Range Interpretation Comments POC-GLUCOSE METER 242 mg/dL 70-110 H : TESTED A T [facility] 6720 (BEAKER) (test code = [facility], 153) 39237: Repairer Maintenance Building/Techni estefani ID = [id number] for MATEUS ROBLES POCT-GLUCOSE [id number] 12:16:00 Test Item Value Reference Range Interpretation Comments POC-GLUCOSE METER 206 mg/dL 70-110 H : TESTED A T [facility] 6720 (BEAKER) (test code = [facility], 153) 96432: Repairer Maintenance Building/Techni estefani ID = [id number] for MATEUS ROBLES
[2021-02-26 15:43] LABS: Absolute Lymphocytes (CBC) 0.9 K/uL (0.7-4.9); Basophils % 1.4 % (0-1.3); Hematocrit 33.1 % (39.6-49.0); MPV 6.9 fL (7.6-11.3); RBC Red Blood Cell Count 3.96 M/uL (4.33-5.43)
--- NOTE | 2021-02-26 16:10 | RAD REPORT ---
EXAM DESCRIPTION: RAD - Foot Right 3 View - 02/26/2021 3:56 pm CLINICAL HISTORY: Right foot pain FINDINGS: The forefoot amputation. Soft tissue ulcerations Cortical irregularity involves the calcaneus and plantar aspect of the midfoot. This may indicate ost eomyelitis. Vascular calcifications are present. 13 millimeter bony/calcific density adjacent to the posterior as pect of the calcaneus probably chronic
[2021-02-26 16:17] LABS: Potassium 5.5 mmol/L (3.5-5.1)
--- NOTE | 2021-02-26 17:36 | ER ---
Nurse's Notes [facility] Name: Dayton Grijalva Age: 60 yrs Sex: Male : 1960 Arrival Date: 02/26/2021 Time: 11:14 Bed 6 Private MD: Tito Duval E Diagnosis: Gangrene, not elsewhere classified;Osteomyelitis, unspecified-Right foot;Hyperkalemia Presentation: 02/26 11:50 Chief complaint: Patient's son or daughter states: Home Health nurse recommended jl7 patient come be evaluated in ED as it appears to have bone exposure to chronic wound to R foot. Coronavirus screen: Client denies travel out of the [place] in the last 14 days. Ebola Screen: Patient denies exposure to infectious person. Patient denies travel to an Ebola-affected area in the 21 days before illness onset. Initial Sepsis Screen: Does the patient meet any 2 criteria? No. Patient's initial sepsis screen is negative. Does the patient have a suspected source of infection? Yes: Skin breakdown/wound. Risk Assessment: Do you want to hurt yourself or someone else? Patient reports no desire to harm self or others. Onset of symptoms is unknown. 11:50 Method Of Arrival: Wheelchair jl7 11:50 Acuity: SAMARA 3 jl7 Historical: - Allergies: 11:51 No Known Allergies; jl7 - PMHx: 11:51 Diabetes - IDDM; HD-MWF; Hypertension; jl7 - PSHx: 11:51 open heart surgery; R foot partial amputation; jl7 - Immunization history:: Client reports receiving the 2nd dose of the Covid vaccine. - Social history:: Smoking status: Patient denies any tobacco usage or history of. Screenin:04 Abuse screen: Denies threats or abuse. Denies injuries from another. Nutritional ld1 screening: No deficits noted. Tuberculosis screening: No symptoms or risk factors identified. Fall Risk None identified. Assessment: 14:03 General: Appears in no apparent distress. comfortable, Behavior is calm, cooperative, ld1 appropriate for age. Pain: Denies pain. Neuro: Level of Consciousness is awake, alert, obeys commands, Oriented to person, place, time, situation. Cardiovascular: Capillary refill < 3 seconds Patient's skin is warm and dry. Rhythm is sinus rhythm. Respiratory: Airway is patent Respiratory effort is even, unlabored, Respiratory pattern is regular, symmetrical. GI: Abdomen is flat, non-distended. : No signs and/or symptoms were reported regarding the genitourinary system. EENT: No signs and/or symptoms were reported regarding the EENT system. Derm: Wound noted right foot. Derm: Wound noted Other: Pt home health nurse referred pt to ER due to bone being exposed on right foot. Musculoskeletal: No signs and/or symptoms reported regarding the musculoskeletal system. 19:47 Reassessment: Patient and/or family updated on plan of care and expected duration. Pain tw5 level reassessed. Vital Signs: 11:50 BP 102 / 58; Pulse 105; Resp 17; Temp 97.1(TE); Pulse Ox 100% ; Weight 86.18 kg; Height jl7 6 ft. 0 in. (182.88 cm); 14:03 BP 153 / 75; Pulse 80; Resp 18; Pulse Ox 99% on R/A; ld1 15:23 BP 155 / 79; Pulse 72; Resp 15; Pulse Ox 100% on R/A; ld1 16:40 BP 167 / 82; Pulse 71; Resp 22; Pulse Ox 100% on R/A; ld1 17:45 BP 178 / 91; Pulse 73; Resp 17; Pulse Ox 100% ; jl7 18:30 BP 182 / 89; Pulse 74; Resp 15; Pulse Ox 100% ; jl7 19:47 BP 182 / 94; Pulse 73; Resp 16; Pulse Ox 100% on R/A; tw5 11:50 Body Mass Index 25.77 (86.18 kg, 182.88 cm) jl7 ED Course: 11:14 Patient arrived in ED. mr 11:15 Tito Duval MD is Private Physician. mr 11:51 Triage completed. jl7 11:51 Arm band placed on right wrist. jl7 14:02 Melanie Castaneda, SUNITA is Primary Nurse. ld1 14:04 Patient has correct armband on for positive identification. Bed in low position. Call ld1 light in reach. Side rails up X2. manager monitoring on. Pulse ox on. NIBP on. Door closed. Noise minimized. Warm blanket given. 14:04 No provider procedures requiring assistance completed. ld1 14:22 Hector Lambert MD is Attending Physician. kdr 15:37 BMP Sent. ld1 15:38 CBC with Diff Sent. ld1 15:38 Inserted saline lock: 20 gauge in right antecubital area, using aseptic technique. ld1 Blood collected. 15:56 Foot Right 3 View XRAY In Process Unspecified. EDMS 19:47 Missed attempt(s): 22 gauge Bleeding controlled, band aid applied, catheter tip intact. tw5 20:23 Patient transferred, IV remains in place. tw5 Administered Medications: 18:42 Drug: Cefepime 1 grams Route: IVPB; Rate: 200 ml/hr; Infused Over: 30 mins; Site: right jg9 antecubital; 19:37 Follow up: Response: No adverse reaction; IV Status: Completed infusion tw5 19:22 Drug: Insulin Regular Human 10 units {Co-Signature: deon (Yary Hwang RN).} Route: tw5 IVP; Site: left antecubital; 20:22 Follow up: Response: Medication administered at discharge. tw5 19:34 Drug: Kayexalate (polystyrene) 15 grams Route: PO; tw5 20:21 Follow up: Response: Medication administered at discharge. tw5 19:37 Drug: vancoMYCIN 1 grams Route: IVPB; Infused Over: 2 hrs; Site: right antecubital; tw5 20:22 Follow up: IV Status: Infusion continued upon transfer tw5 19:37 Drug: Albuterol - atroVENT (ipratropium) (3:1) (2.5 mg - 0.5 mg) 3 ml Route: Nebulizer; tw5 20:22 Follow up: Response: No adverse reaction; Medication administered at discharge. tw5 20:16 Drug: D50W 50 ml Route: IVP; Site: right antecubital; tw5 20:22 Follow up: Response: Medication administered at discharge. tw5 20:21 Drug: Calcium Gluconate 1 grams Route: IVPB; Infused Over: 60 mins; Site: right tw5 antecubital; 20:22 Follow up: IV Status: Infusion continued upon transfer tw5 Outcome: 17:35 ER care complete, transfer ordered by . kdr 20:23 Transferred by [facility] to [facility], Transfer form completed. tw5 Note: report given to Nora DORSEY, Bedside Report given to [facility] 20:23 Condition: stable 20:23 Instructed on the need for transfer. 20:23 Patient left the ED. tw5 Signatures: Dispatcher [employer] EDMS Hector Lambert MD MD [facility] Federico, Destini Fu, SUNITA Guerrero RN jl7 Melanie Castaneda RN RN [email or web address] Amanda Fallon tw5 Celi Pinzon jg9 Yary Hwang RN mk
--- NOTE | 2021-02-26 17:36 | EDPHYS ---
Physician Documentation [facility] Name: Dayton Grijalva Age: 60 yrs Sex: Male : 1960 Arrival Date: 02/26/2021 Time: 11:14 Bed 6 Private MD: Tito Duval E ED Physician Hector Lambert HPI: 02/26 16:38 This 60 yrs old Male presents to ER via Wheelchair with complaints of Open kdr Wound. 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 The complaints affect the right foot. Context: The problem was sustained at home. Onset: The symptoms/episode began/occurred at an unknown time. Longstanding. Home health visited the patient today and noted that foot look well. They suggested he be brought to the ED. Patient has had a prior midfoot amputation bilaterally. He has had a chronic wound on the right foot for which he is being managed in [place]. Patient denies any new fever chills nausea vomiting or other issues. Home health was concerned and bone was now exposed. Historical: - Allergies: 11:51 No Known Allergies; jl7 - PMHx: 11:51 Diabetes - IDDM; HD-MWF; Hypertension; jl7 - PSHx: 11:51 open heart surgery; R foot partial amputation; jl7 - Immunization history:: Client reports receiving the 2nd dose of the Covid vaccine. - Social history:: Smoking status: Patient denies any tobacco usage or history of. ROS: 17:31 Constitutional: Negative for fever, chills, and weight loss, Eyes: Negative for injury, kdr pain, redness, and discharge, Neck: Negative for injury, pain, and swelling, Cardiovascular: Negative for chest pain, palpitations, and edema, Respiratory: Negative for shortness of breath, cough, wheezing, and pleuritic chest pain, Abdomen/GI: Negative for abdominal pain, nausea, vomiting, diarrhea, and constipation, Back: Negative for injury and pain, : Negative for injury, bleeding, discharge, and swelling, Neuro: Negative for headache, weakness, numbness, tingling, and seizure activity. Psych: Negative for depression, anxiety, suicide ideation, homicidal ideation, and hallucinations, Allergy/Immunology: Negative for hives, rash, and allergies, Endocrine: Negative for neck swelling, polydipsia, polyuria, polyphagia, and marked weight changes, Hematologic/Lymphatic: Negative for swollen nodes, abnormal bleeding, and unusual bruising. 17:31 MS/extremity: Positive for decreased range of motion, erythema, Purulent drainage from the wound and black tissue, Negative for Exam: 17:32 Skin: cellulitis, that is moderate, induration, that is moderate is noted, lesion(s), kdr noted, and can be described as necrotic, pustular, located on the arch of right foot and dorsum of right foot. 17:35 Constitutional: This is a well developed, well nourished patient who is awake, alert, kdr and in no acute distress. Chest/axilla: Normal chest wall appearance and motion. Nontender with no deformity. No lesions are appreciated. Abdomen/GI: Soft, non-tender, with normal bowel sounds. No distension or tympany. No guarding or rebound. No evidence of tenderness throughout. Neuro: Awake and alert, GCS 15, oriented to person, place, time, and situation. Cranial nerves II-XII grossly intact. Motor strength 5/5 in all extremities. Sensory grossly intact. Cerebellar exam normal. Psych: Awake, alert, with orientation to person, place and time. Behavior, mood, and affect are within normal limits. Vital Signs: 11:50 BP 102 / 58; Pulse 105; Resp 17; Temp 97.1(TE); Pulse Ox 100% ; Weight 86.18 kg; Height jl7 6 ft. 0 in. (182.88 cm); 14:03 BP 153 / 75; Pulse 80; Resp 18; Pulse Ox 99% on R/A; ld1 15:23 BP 155 / 79; Pulse 72; Resp 15; Pulse Ox 100% on R/A; ld1 16:40 BP 167 / 82; Pulse 71; Resp 22; Pulse Ox 100% on R/A; ld1 17:45 BP 178 / 91; Pulse 73; Resp 17; Pulse Ox 100% ; jl7 18:30 BP 182 / 89; Pulse 74; Resp 15; Pulse Ox 100% ; jl7 19:47 BP 182 / 94; Pulse 73; Resp 16; Pulse Ox 100% on R/A; tw5 11:50 Body Mass Index 25.77 (86.18 kg, 182.88 cm) jl7 MDM: 17:32 Data reviewed: vital signs, lab test result(s), radiologic studies. Counseling: I had a kdr detailed discussion with the patient and/or guardian regarding: the historical points, exam findings, and any diagnostic results supporting the discharge/admit diagnosis, lab results, radiology results, the need to transfer to another facility. 17:35 Patient medically screened. kdr 02/26 15:22 Order name: CBC with Diff ld1 02/26 15:22 Order name: BMP ld1 02/26 15:23 Order name: CBC with Automated Diff; Complete Time: 15:47 EDMS 02/26 15:23 Order name: Basic Metabolic Panel; Complete Time: 16:29 EDMS 02/26 17:42 Order name: SARS-COV-2 RT PCR; Complete Time: 18:49 EDMS 02/26 15:24 Order name: Foot Right 3 View XRAY; Complete Time: 16:29 kdr Administered Medications: 18:42 Drug: Cefepime 1 grams Route: IVPB; Rate: 200 ml/hr; Infused Over: 30 mins; Site: right jg9 antecubital; 19:37 Follow up: Response: No adverse reaction; IV Status: Completed infusion tw 19:22 Drug: Insulin Regular Human 10 units {Co-Signature: deon (Yary Hwang RN).} Route: tw5 IVP; Site: left antecubital; 20:22 Follow up: Response: Medication administered at discharge. tw5 19:34 Drug: Kayexalate (polystyrene) 15 grams Route: PO; tw 20:21 Follow up: Response: Medication administered at discharge. tw5 19:37 Drug: vancoMYCIN 1 grams Route: IVPB; Infused Over: 2 hrs; Site: right antecubital; tw5 20:22 Follow up: IV Status: Infusion continued upon transfer tw5 19:37 Drug: Albuterol - atroVENT (ipratropium) (3:1) (2.5 mg - 0.5 mg) 3 ml Route: Nebulizer; tw5 20:22 Follow up: Response: No adverse reaction; Medication administered at discharge. tw 20:16 Drug: D50W 50 ml Route: IVP; Site: right antecubital; tw5 20:22 Follow up: Response: Medication administered at discharge. tw 20:21 Drug: Calcium Gluconate 1 grams Route: IVPB; Infused Over: 60 mins; Site: right tw5 antecubital; 20:22 Follow up: IV Status: Infusion continued upon transfer tw5 Disposition Summary: 02/26/21 17:35 Transfer Ordered Transfer Location: [facility] kdr Reason: Higher level of care kdr Condition: Fair kdr Problem: an acute exacerbation kdr Symptoms: are unchanged kdr Accepting Physician: Dr Muniz(02/26/21 20:23) tw5 Diagnosis - Gangrene, not elsewhere classified kdr - Osteomyelitis, unspecified - Right foot kdr - Hyperkalemia kdr Forms: - Medication Reconciliation Form kdr - SBAR form kdr Signatures: Dispatcher [employer] EDMS Hector Lambert MD MD kdr Leal, Jahala, RN RN jl7 Amanda Fallon tw5 Celi [id number] Yary chavarria Corrections: (The following items were deleted from the chart) 17:42 17:20 CORONAVIRUS+MR.LAB.BRZ ordered. EDMS EDMS 18:50 17:35 n kdr kdr 18:50 18:50 Dr Muniz kdr kdr 20:23 18:50 Dr Muniz kdr tw5
[2021-02-26] MEDS ORDERED: VANCOMYCIN 1 GM/VIAL ONE (17:47)
[2021-02-26] MEDS ORDERED: NA CHLORIDE 0.9% 0 ML ONE ×2 (17:47)
[2021-02-26] MEDS ORDERED: CEFEPIME 1 GM/VIAL ONE (17:47)
[2021-02-26] MEDS ORDERED: CEFEPIME 1 GM in NA CHLORIDE 0.9% 100 ML IV ONE (18:00)
[2021-02-26] MEDS ORDERED: VANCOMYCIN 1 GM in NA CHLORIDE 0.9% 250 ML IVPB ONE (18:00)
[2021-02-26] MEDS ORDERED: ALBUTEROL 2.5 MG/3 ML NEB SOL ONE ×2 (19:18→19:20)
[2021-02-26] MEDS ORDERED: DEXTROSE ORAL 40% 15 GM TUBE ONE (19:18)
[2021-02-26] MEDS ORDERED: INSULIN -REGULAR HUMAN 50 UNIT/0.5 ML ML ONE (19:18)
[2021-02-26] MEDS ORDERED: IPRATROPIUM BROM 0.5MG/2.5ML ONE (19:19)
[2021-02-26] MEDS ORDERED: SOD POLYSTYREN SUL 15 GM/60 ML UCUP ONE (19:19)
[2021-02-26] MEDS ORDERED: CALCIUM GLUCONATE 1 GM IVPB 1 GM/50 ML BAG IV ONE (19:20)
[2021-02-26] MEDS ORDERED: D50W 50 ML IV ONE (19:24)
[2021-02-26 20:33] VITALS: TEMP 97.1
[2021-02-26 20:36] VITALS: O2SAT 100
[2021-02-26 20:42] VITALS: BP 182/94
== END 2021-02-26 20:23 | disposition short-term general hospital (02) ==
LOC: ER 11:08
DX: M86.9 Osteomyelitis, unspecified (principal); I96 Gangrene, not elsewhere classified; E87.5 Hyperkalemia; E11.69 Type 2 diabetes mellitus with other specified complication; E11.52 Type 2 diabetes mellitus with diabetic peripheral angiopathy with gangrene; Z20.822 Contact with and (suspected) exposure to COVID-19; Z99.2 Dependence on renal dialysis; Z89.431 Acquired absence of right foot
CPT/HCPCS: 85025; 80048; 36415; 73630; 94640; 99285; U0003; J3370; J0610; J7050; J0692

== ENCOUNTER 2021-07-15 16:06 | Observation (INO) | payer OTHER ==
--- OUTSIDE RECORDS SUMMARY | 2021-07-15 16:27 | XMS REPORT | Continuity of Care Document ---
:1960 Author Organization [facility] t Address [address] [place] [address] [address]. Leon [address] [place] [address] Care Team Providers Name Role Phone ROSE DUVAL JR Primary Care Physician Unavailable Lupe Nowak Attending Clinician Unavailable [id number] Attending Clinician Unavailable Rohit Duval Attending Clinician Unavailable Ruby CLOUD Attending Clinician Unavailable MARIA C DRIVER Attending Clinician Unavailable Cortez PADILLA Attending Clinician Unavailable VEL Attending Clinician Unavailable Vikas Cloud DPM Attending Clinician Vikas CLOUD Attending Clinician Unavailable DAVID Attending Clinician Unavailable Steve Castañeda MD Attending Clinician Steve CASTAÑEDA Attending Clinician Unavailable ELIZABETH KIRBY Attending Clinician Unavailable Natalio Mixon V Attending Clinician Unavailable BENTLEY Attending Clinician Unavailable Laisha Sánchez Attending Clinician Unavailable GRIFFIN Attending Clinician Unavailable ABIMBOLA HINES Attending Clinician Unavailable NATALIO MIXON Attending Clinician Unavailable KIMBERLI HAGAN Attending Clinician Unavailable KYRGYZ Attending Clinician Unavailable ANANDA Attending Clinician Unavailable Michaela Nowak Admitting Clinician Unavailable [id number] Admitting Clinician Unavailable Ruby CLOUD Admitting Clinician Unavailable MARIA C DRIVER Admitting Clinician Unavailable Cortez PADILLA Admitting Clinician Unavailable VEL Admitting Clinician Unavailable [facility] Admitting Clinician Unavailable JAXSON Admitting Clinician Unavailable FRANCESCO Admitting Clinician Unavailable KNOW Admitting Clinician Unavailable DUVAL Admitting Clinician Unavailable RUTH ELIAS Admitting Clinician Unavailable KIMBERLI HAGAN Admitting Clinician Unavailable Payers Payer Name Policy Type Policy Number Effective Date Expiration Date Yeni bowman [facility] [id number] [facility] [id number] 2020 HMO 00:00:00 CDC REVIEW [id number] 2019 2020 00:00:00 00:00:00 MEDICARE PART A \\T\\ [id number] B - MEDICARE OPEN ACCESS PLUS - [id number] CIGNA Problems Condition Condition Condition Status Onset Resolution Last Treating Co mments Source Name Details Category Date Date Treatment Clinician Date Essential Essential Disease Active 2020-03 Alexander darnell hypertensi hypertensi 1-16 [facility] llege on on 00:00: of 00 Medicin e Hyperlipid Hyperlipid Disease Active 2020-03 B mariah emia emia 1-16 College 00:00: of 00 Medicin e Pressure Pressure Disease Active [facility] ulcer of ulcer of 8-10 Colleg [facility] right right 00:00: of heel, heel, 00 Medicin stage 3 stage 3 e (HCCode) (HCCode) Pressure Pressure Disease Active [facility] ulcer of ulcer of 8-10 [facility] right right 00:00: of heel, heel, 00 Medicin stage 3 stage 3 e (HCCode) (HCCode) Status Status Disease Active [facility] post split post split 5-26 Co llege thickness thickness 00:00: of skin graft skin graft 00 Me dicin e 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 3-31 [facility] llege stump stump 00:00: of (HCCode) (HCCode) 00 Medici n e Non-healin Non-healin Disease Active 2019-03 [facility] g wound of g wound of 0-01 Co llege lower lower 00:00: of extremity extremity 00 Medi greyson e Eschar of Eschar of Disease Active 2019-03 Alexander darnell heel heel 0- College 00:00: of 00 Medicin e Wound Wound Disease Active 2019-03 [facility] eschar of eschar of 0- [facility] foot foot 00:00: of 00 Medicin e Post-opera Post-opera Disease Active [facility] tive state tive state 07-23 Co llege 00:00: of 00 Medicin e S/P S/P Disease Active [facility] transmetat transmetat 07-23 Co llege arsal arsal 00:00: of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 00 Me dicin of foot, of foot, e right right (HCCode) (HCCode) Type 2 Type 2 Disease Active [facility] diabetes diabetes 07-23 Colleg e mellitus mellitus 00:00: of with with 00 Medicin diabetic diabetic e peripheral peripheral angiopathy angiopathy and and gangrene, gangrene, without without long-term long-term current current use of use of insulin insulin (HCCode) (HCCode) Encounter Encounter Disease Active [facility] for post for post 07-23 Colleg e surgical surgical 00:00: of wound wound 00 Medicin check check e PAD PAD Disease Recurre [facility] (periphera (periphera nce 5-12 Co llege l artery l artery 00:00: of disease) disease) 00 Medici n (HCCode) (HCCode) e PAD PAD Disease Active [facility] (periphera (periphera 5-12 Co llege l artery l artery 00:00: of disease) disease) 00 Medici n (HCCode) (HCCode) e Allergies, Adverse Reactions, Alerts Allergy Allergy Status Severity Reaction(s) Onset Inactive Treating Comm ents Source Name Type Date Date Clinician NKA Allergy Active [facility] 07-13 19:49: 35 NKA Allergy Active [facility] 07-13 19:49: 35 No Known DA Active [facility]10 [facility] d [facility] No Known DA Active [facility] 00:[facility]: d [facility] 00 [facility] NO KNOWN Allergy Active [facility] Social History Social Habit Start Date Stop Date Quantity Comments Source Exposure to Not sure [facility] Colle rohit SARS-CoV-2 of Medicine (event) Alcohol intake 2021-06-01 2021-06-01 Ex-drinker [facility] Col lege 00:00:00 00:00:00 (finding) of Medicine Tobacco use and 2019-07-10 2019-07-10 Smokeless tobacco [facility] [employer] exposure 00:00:00 00:00:00 non-user of Medicine Sex Ass[birth year] [facility] Manda schmidt 00:00:00 00:00:00 of Medicine Smoking Status Start Date Stop Date Source Never smoked tobacco [facility] of Medicine Medications Ordered Filled Start Stop Current Ordering Indication Dosage Frequency Signature Comments Components Source Medication Medication Date Date Medication? Clinician (SIG) Name Name PILLO CO Yes by [facility] 3-22 [facility] 16:08: N route. of 52 Medicin e Sevelamer Yes Take by [facility] Carbonate 3-22 mouth. [facility] 800 MG TABS 16:08: of 52 Medicin e amlodipine 0 Yes 10mg Take 10 mg [facility] (NORVASC) 3-22 by mouth Colleg e 10 MG 16:08: daily. of tablet 52 Medicin e carvedilol Yes 12.5mg Take 12.5 [facility] (COREG) 3-22 mg by [facility] 12.5 MG 16:08: mouth 2 of tablet 52 times Medicin daily e (with meals). gabapentin 0 Yes 300mg Take 300 [facility] (NEURONTIN) 3-22 mg by [facility] 300 MG 16:08: mouth 3 of capsule 52 times Medicin daily. e ASPIRIN 81 0 Yes Take by Alexander darnell OR 3-22 mouth. [facility] 16:08: of 52 Medicin e Melatonin 3 0 Yes Take by [facility] MG TABS 3-22 mouth. [facility] 16:08: of 52 Medicin e Acetaminoph 0 Yes Take by [facility] en 3-22 mouth two [facility] (TYLENOL) 16:08: times of 325 MG CAPS 52 daily. Medici n e Docusate Yes Take by [facility] r Sodium 100 3-22 mouth. College MG TABS 16:08: of 52 Medicin e senna-docus 0 Yes 1{tbl} Take 1 [facility] ate 3-22 Tablet by [facility] (PERICOLACE 16:08: mouth of ) 8.6-50 MG 52 daily. Medici n per tablet e Simethicone Yes Take by [facility] 80 MG TABS 05-26 mouth. [facility] 16:08: of 52 Medicin e Glucagon 1 Yes Inject [facility] MG/0.2ML 05-26 into the [facility] SOAJ 16:08: skin. of 52 Medicin e Glucose 15 Yes Take by Alexander darnell g PACK 05-26 mouth. [facility] 16:08: of 52 Medicin e insulin Yes Inject [facility] aspart 05-26 into the [facility] (NOVOLOG) 16:08: skin 3 of 100 UNIT/ML 52 times Medicin injection daily e (before meals). piperacilli Yes 2.25g Inject Alexander darnell n-tazobacta 05-26 2.25 g Colleg e m (ZOSYN) 16:08: into the 2-0.25 52 vein every Medicin GM/50ML 6 hours. e IVPB atorvastati Yes 40mg Take 40 mg [facility] n (LIPITOR) 05-26 by mouth [facility]ia [facility] 40 MG 16:08: daily. of tablet 52 Medicin e ferrous Yes 325mg Take 325 [facility] sulfate 325 - mg by [facility] (65 Fe) MG 16:08: mouth of tablet 52 daily. Medicin e insulin Yes Inject [facility] glargine 05-26 into the [facility] (LANTUS) 16:08: skin of 100 UNIT/ML 52 nightly. Medi greyson injection e Epoetin Yes Inject as [facility] Bob-epbx 05-26 directed. Colle ge (RETACRIT) 16:08: of 3000 52 Medicin UNIT/ML e SOLN SENNA CO Yes by [facility] 05-05 COMBINATIO [facility] 15:54: N route. of 43 Medicin e Sevelamer Yes Take by [facility] Carbonate 05-05 mouth. [facility] 800 MG TABS 15:54: of 43 Medicin e amlodipine Yes 10mg Take 10 mg [facility] (NORVASC) 05-05 by mouth Colleg e 10 MG 15:54: daily. of tablet 43 Medicin e carvedilol Yes 12.5mg Take 12.5 [facility] (COREG) 3- mg by [facility] 12.5 MG 15:54: mouth 2 of tablet 43 times Medicin daily e (with meals). gabapentin Yes 300mg Take 300 [facility] (NEURONTIN) 3- mg by [facility] 300 MG 15:54: mouth 3 of capsule 43 times Medicin daily. e ASPIRIN 81 Yes Take by Alexander darnell OR 3- mouth. [facility] 15:54: of 43 Medicin e Melatonin 3 Yes Take by [facility] MG TABS 3 mouth. [facility] 15:54: of 43 Medicin e Acetaminoph Yes Take by [facility] en - mouth two [facility] (TYLENOL) 15:54: times of 325 MG CAPS 43 daily. Medici n e Docusate Yes Take by [facility] Sodium 100 05-05 mouth. [facility] MG TABS 15:54: of 43 Medicin e senna-docus Yes 1{tbl} Take 1 [facility] ate 05-05 Tablet by [facility] (PERICOLACE 15:54: mouth of ) 8.6-50 MG 43 daily. Medici n per tablet e Simethicone Yes Take by [facility] 80 MG TABS 05-05 mouth. [facility] 15:54: of 43 Medicin e Glucagon 1 Yes Inject [facility] MG/0.2ML 05-05 into the [facility] SOAJ 15:54: skin. of 43 Medicin e Glucose 15 Yes Take by Alexander darnell g PACK 05-05 mouth. [facility] 15:54: of 43 Medicin e insulin Yes Inject [facility] aspart 05-05 into the [facility] (NOVOLOG) 15:54: skin 3 of 100 UNIT/ML 43 times Medicin injection daily e (before meals). piperacilli Yes 2.25g Inject Alexander darnell n-tazobacta 05-05 2.25 g [facility] lo (ZOSYN) 15:54: into the of 2-0.25 43 vein every Medicin GM/50ML 6 hours. e IVPB atorvastati Yes 40mg Take 40 mg [facility] n (LIPITOR) 05-05 by mouth Alexia ege 40 MG 15:54: daily. of tablet 43 Medicin e ferrous Yes 325mg Take 325 [facility] sulfate 325 3- mg by [facility] (65 Fe) MG 15:54: mouth of tablet 43 daily. Medicin e insulin Yes Inject [facility] glargine 05-05 into the College (LANTUS) 15:54: skin of 100 UNIT/ML 43 nightly. Medi greyson injection e Epoetin Yes Inject as [facility] Bob-epbx 05-05 directed. [facility] ge (RETACRIT) 15:54: of 3000 43 Medicin UNIT/ML e SOLN SENNA CO Yes by [facility] 04-07 COMBINATIO [facility] 15:31: N route. of 43 Medicin e Sevelamer Yes Take by [facility] Carbonate 04-07 mouth. [facility] 800 MG TABS 15:31: of 43 Medicin e amlodipine Yes 10mg Take 10 mg [facility] (NORVASC) 04-07 by mouth Colleg e 10 MG 15:31: daily. of tablet 43 Medicin e carvedilol Yes 12.5mg Take 12.5 [facility] (COREG) 2- mg by [facility] 12.5 MG 15:31: mouth 2 of tablet 43 times Medicin daily e (with meals). gabapentin Yes 300mg Take 300 [facility] (NEURONTIN) 2- mg by [facility] 300 MG 15:31: mouth 3 of capsule 43 times Medicin daily. e ASPIRIN 81 Yes Take by Alexander darnell OR 2 mouth. [facility] 15:31: of 43 Medicin e Melatonin 3 Yes Take by [facility] MG TABS 2-01 mouth. [facility] 15:31: of 43 Medicin e Acetaminoph Yes Take by [facility] en 2- mouth two [facility] (TYLENOL) 15:31: times of 325 MG CAPS 43 daily. Medici n e Docusate Yes Take by [facility] Sodium 100 2- mouth. [facility] MG TABS 15:31: of 43 Medicin e senna-docus Yes 1{tbl} Take 1 [facility] ate 04-07 Tablet by [facility] (PERICOLACE 15:31: mouth of ) 8.6-50 MG 43 daily. Medici n per tablet e Simethicone Yes Take by [facility] 80 MG TABS 2 mouth. [facility] 15:31: of 43 Medicin e Glucagon 1 Yes Inject [facility] MG/0.2ML 04-07 into the [facility] SOAJ 15:31: skin. of 43 Medicin e Glucose 15 Yes Take by Alexander darnell g PACK 04-07 mouth. [facility] 15:31: of 43 Medicin e insulin Yes Inject [facility] aspart 04-07 into the [facility] (NOVOLOG) 15:31: skin 3 of 100 UNIT/ML 43 times Medicin injection daily e (before meals). piperacilli Yes 2.25g Inject Alexander darnell n-tazobacta 04-07 2.25 g Colleg e m (ZOSYN) 15:31: into the 0.25 43 vein every Medicin GM/50ML 6 hours. e IVPB atorvastati Yes 40mg Take 40 mg [facility] n (LIPITOR) 04-07 by mouth Alexia ege 40 MG 15:31: daily. of tablet 43 Medicin e ferrous Yes 325mg Take 325 [facility] sulfate 325 - mg by [facility] (65 Fe) MG 15:31: mouth of tablet 43 daily. Medicin e insulin Yes Inject [facility] glargine 04-07 into the [facility] (LANTUS) 15:31: skin of 100 UNIT/ML 43 nightly. Medi greyson injection e Epoetin Yes Inject as [facility] Bob-epbx 04-07 directed. [facility]le [facility] (RETACRIT) 15:31: of 3000 43 Medicin UNIT/ML e SOLN Dextran 2021- No Apply to [facility] 70-Hypromel 04-07 eye. College lose 15:31: 00:00 of (ARTIFICIAL 43 :00 Medicin TEARS) e 0.1-0.3 % SOLN dextrose 50 2021- No once. [facility] % injection 04-07 [facility] 15:30: 00:00 of 37 :00 Medicin e SENNA CO 2020-03 Yes by [facility] 04-05 [facility] 13:24: N route. of 17 Medicin e Sevelamer 2020-03 Yes Take by [facility] Carbonate 1-30 mouth. [facility] 800 MG TABS 13:24: of 17 Medicin e amlodipine 2020-03 Yes 10mg Take 10 mg [facility] (NORVASC) 1-30 by mouth Colleg e 10 MG 13:24: daily. of tablet 17 Medicin e carvedilol 2020-03 Yes 12.5mg Take 12.5 [facility] (COREG) 1-30 mg by [facility] 12.5 MG 13:24: mouth 2 of tablet 17 times Medicin daily e (with meals). gabapentin 2020-03 Yes 300mg Take 300 [facility] (NEURONTIN) 1-30 mg by [facility] 300 MG 13:24: mouth 3 of capsule 17 times Medicin daily. e ASPIRIN 81 2020-03 Yes Take by Alexander darnell OR 1-30 mouth. [facility] 13:24: of 17 Medicin e Melatonin 3 2020-03 Yes Take by [facility] MG TABS 1-30 mouth. [facility] 13:24: of 17 Medicin e Acetaminoph 2020-03 Yes Take by [facility] en 1-30 mouth [facility] (TYLENOL) 13:24: times of 325 MG CAPS 17 daily. Medici n e Docusate 2020-03 Yes Take by [facility] Sodium 100 1-30 mouth. [facility] MG TABS 13:24: of 17 Medicin e senna-docus 2020-03 Yes 1{tbl} Take 1 [facility] ate 1-30 Tablet by [facility] (PERICOLACE 13:24: mouth of ) 8.6-50 MG 17 daily. Medici n per tablet e Simethicone 2020-03 Yes Take by [facility] 80 MG TABS 1-30 mouth. [facility] 13:24: of 17 Medicin e Glucagon 1 2020-03 Yes Inject [facility] MG/0.2ML 30 into the [facility] SOA 13:24: skin. of 17 Medicin e dextrose 50 2020-03 Yes once. [facility] % injection 30 [facility] 13:24: of 17 Medicin e Glucose 15 2020-03 Yes Take by Alexander darnell g PACK 1-30 mouth. [facility] 13:24: of 17 Medicin e insulin 2020-03 Yes Inject [facility] aspart -30 into the College (NOVOLOG) 13:24: skin 3 of 100 UNIT/ML 17 times Medicin injection daily e (before meals). Dextran 2020-03 Yes Apply to [facility] 70-Hypromel 1-30 eye. College lose 13:24: of (ARTIFICIAL 17 Medicin TEARS) e 0.1-0.3 % SOLN piperacilli 2020-03 Yes 2.25g Inject Alexander darnell n-tazobacta -30 2.25 g Colleg e m (ZOSYN) 13:24: into the of 2-0.25 17 vein every Medicin GM/50ML 6 hours. e IVPB atorvastati 2020-03 Yes 40mg Take 40 mg [facility] n (LIPITOR) 1-30 by mouth [facility]ia e[facility] 40 MG 13:24: daily. of tablet 17 Medicin e ferrous 2020-03 Yes 325mg Take 325 [facility] sulfate 325 1-30 mg by [facility] (65 Fe) MG 13:24: mouth of tablet 17 daily. Medicin e insulin 2020-03 Yes Inject [facility] glargine 1-30 into the [facility] (LANTUS) 13:24: skin of 100 UNIT/ML 17 nightly. Medi greyson injection e Epoetin 2020-03 Yes Inject as [facility] Bob-epbx 1-30 directed. [facility]le ge (RETACRIT) 13:24: of 3000 17 Medicin UNIT/ML e SOLN insulin 2020-03 Yes Inject [facility] glargine 1-16 into the [facility] (LANTUS) 11:05: skin of 100 UNIT/ML 45 nightly. Medi greyson injection e Epoetin 2020-03 Yes Inject as [facility] Bob-epbx -16 directed. [facility]le [facility] (RETACRIT) 11:05: of 3000 45 Medicin UNIT/ML e SOLN SENNA CO 2020-03 Yes [facility] of 45 Medicin e Sevelamer 2020-03 Yes Take by [facility] Carbonate -16 mouth. College 800 MG TABS 11:05: of 45 Medicin e amlodipine 2020-03 Yes 10mg Take 10 mg [facility] (NORVASC) 16 by mouth Colleg e 10 MG 11:05: daily. of tablet 45 Medicin e carvedilol 2020-03 Yes 12.5mg Take 12.5 [facility] (COREG) 1-16 mg by [facility] 12.5 MG 11:05: mouth 2 of tablet 45 times Medicin daily e (with meals). gabapentin 2020-03 Yes 300mg Take 300 [facility] (NEURONTIN) 1-16 mg by [facility] 300 MG 11:05: mouth 3 of capsule 45 times Medicin daily. e ASPIRIN 81 2020-03 Yes Take by Alexander darnell OR 1-16 mouth. [facility] 11:05: of 45 Medicin e Melatonin 3 2020-03 Yes Take by [facility] MG TABS 1-16 mouth. [facility] 11:05: of 45 Medicin e Acetaminoph 2020-03 Yes Take by [facility] en 1-16 mouth two [facility] (TYLENOL) 11:05: times of 325 MG CAPS 45 daily. Medici n e Docusate 2020-03 Yes Take by [facility] Sodium 100 -16 mouth. [facility] MG TABS 11:05: of 45 Medicin e senna-docus 2020-03 Yes 1{tbl} Take 1 [facility] ate 1-16 Tablet by [facility] (PERICOLACE 11:05: mouth of ) 8.6-50 MG 45 daily. Medici n per tablet e Simethicone 2020-03 Yes Take by [facility] 80 MG TABS -16 mouth. [facility] 11:05: of 45 Medicin e Glucagon 1 2020-03 Yes Inject [facility] MG/0.2ML 03-22 into the [facility] SOAJ 11:05: skin. of 45 Medicin e dextrose 50 2020-03 Yes once. [facility] % injection 03-22 [facility] 11:05: of 45 Medicin e Glucose 15 2020-03 Yes Take by Alexander darnell g PACK -16 mouth. [facility] 11:05: of 45 Medicin e insulin 2020-03 Yes Inject [facility] aspart -16 into the [facility] (NOVOLOG) 11:05: skin 3 of 100 UNIT/ML 45 times Medicin injection daily e (before meals). Dextran 2020-03 Yes Apply to [facility] 70-Hypromel 03-22 eye. [facility] lose 11:05: of (ARTIFICIAL 45 Medicin TEARS) e 0.1-0.3 % SOLN piperacilli 2020-03 Yes 2.25g Inject Alexander darnell n-tazobacta 1-16 2.25 g [facility] m (ZOSYN) 11:05: into the of 2-0.25 45 vein every Medicin GM/50ML 6 hours. e IVPB atorvastati 2020-03 Yes 40mg Take 40 mg [facility] n (LIPITOR) 1-16 by mouth Alexia ege 40 MG 11:05: daily. of tablet 45 Medicin e ferrous 2020-03 Yes 325mg Take 325 [facility] sulfate 325 1-16 mg by [facility] (65 Fe) MG 11:05: mouth of tablet 45 daily. Medicin e SENNA CO 2020-03 Yes by [facility] 0-19 COMBINATIO [facility] 15:27: N route. of 58 Medicin e Sevelamer 2020-03 Yes Take by [facility] Carbonate 0-19 mouth. [facility] 800 MG TABS 15:27: of 58 Medicin e amlodipine 2020-03 Yes 10mg Take 10 mg [facility] (NORVASC) 0-19 by mouth Colle e 10 MG 15:27: daily. of tablet 58 Medicin e carvedilol 2020-03 Yes 12.5mg Take 12.5 [facility] (COREG) 0-19 mg by [facility] 12.5 MG 15:27: mouth 2 of tablet 58 times Medicin daily e (with meals). gabapentin 2020-03 Yes 300mg Take 300 [facility] (NEURONTIN) 0-19 mg by [facility] 300 MG 15:27: mouth 3 of capsule 58 times Medicin daily. e ASPIRIN 81 2020-03 Yes Take by Alexander darnell OR 0-19 mouth. [facility] 15:27: of 58 Medicin e Melatonin 3 2020-03 Yes Take by [facility] MG TABS 0-19 mouth. [facility] 15:27: of 58 Medicin e Acetaminoph 2020-03 Yes Take by [facility] en 0-19 mouth two [facility] (TYLENOL) 15:27: times of 325 MG CAPS 58 daily. Medici n e Docusate 2020-03 Yes Take by [facility] Sodium 100 0-19 mouth. College MG TABS 15:27: of 58 Medicin e senna-docus 2020-03 Yes 1{tbl} Take 1 [facility] ate 0-19 Tablet by [facility] (SENOKOT S) 15:27: mouth of 8.6-50 MG 58 daily. Medicin per tablet e Simethicone 2020-03 Yes Take by [facility] 80 MG TABS 0-19 mouth. [facility] 15:27: of 58 Medicin e Glucagon 1 2020-03 Yes Inject [facility] MG/0.2ML 0-19 into the [facility] SOAJ 15:27: skin. of 58 Medicin e dextrose 50 2020-03 Yes once. [facility] % injection 0-19 [facility] 15:27: of 58 Medicin e Glucose 15 2020-03 Yes Take by Alexander darnell g PACK 0-19 mouth. [facility] 15:27: of 58 Medicin e insulin 2020-03 Yes Inject [facility] aspart 0-19 into the [facility] (NOVOLOG) 15:27: skin 3 of 100 UNIT/ML 58 times Medicin injection daily e (before meals). Dextran 2020-03 Yes Apply to [facility] 70-Hypromel 0-19 eye. [facility] lose 15:27: of (ARTIFICIAL 58 Medicin TEARS) e 0.1-0.3 % SOLN piperacilli 2020-03 Yes 2.25g Inject Alexander darnell n-tazobacta 0-19 2.25 g [facility] m (ZOSYN) 15:27: into the of 2-0.25 58 vein every Medicin GM/50ML 6 hours. e IVPB atorvastati 2020-03 Yes 40mg Take 40 mg [facility] n (LIPITOR) 0-19 by mouth [facility] 40 MG 15:27: daily. of tablet 58 Medicin e ferrous 2020-03 Yes 325mg Take 325 [facility] sulfate 325 0-19 mg by [facility] (65 Fe) MG 15:27: mouth of tablet 58 daily. Medicin e insulin 2020-03 Yes Inject [facility] glargine 0-19 into the [facility] (LANTUS) 15:27: skin of 100 UNIT/ML 58 nightly. Medi greyson injection e Epoetin 2020-03 Yes Inject as [facility] Bob-epbx 0-19 directed. [facility]le [facility] (RETACRIT) 15:27: of 3000 58 Medicin UNIT/ML e SOLN SENNA CO Yes by [facility]. of 28 Medicin e Sevelamer Yes Take by [facility] Carbonate 9- mouth. [facility] 800 MG TABS 14:32: of 28 Medicin e amlodipine Yes 10mg Take 10 mg [facility] (NORVASC) - by mouth Colleg e 10 MG 14:32: daily. of tablet 28 Medicin e carvedilol Yes 12.5mg Take 12.5 [facility] (COREG) 9- mg by [facility] 12.5 MG 14:32: mouth 2 of tablet 28 times Medicin daily e (with meals). gabapentin 0 Yes 300mg Take 300 [facility] (NEURONTIN) - mg by [facility] 300 MG 14:32: mouth 3 of capsule 28 times Medicin daily. e ASPIRIN 81 Yes Take by Alexander darnell OR - mouth. [facility] 14:32: of 28 Medicin e Melatonin 3 Yes Take by [facility] MG TABS - mouth. [facility] 14:32: of 28 Medicin e Acetaminoph Yes Take by [facility] en - mouth [facility] (TYLENOL) 14:32: times of 325 MG CAPS 28 daily. Medici n e Docusate Yes Take by [facility] Sodium 100 - mouth. [facility] MG TABS 14:32: of 28 Medicin e senna-docus Yes 1{tbl} Take 1 [facility] ate - Tablet by [facility] (SENOKOT S) 14:32: mouth of 8.6-50 MG 28 daily. Medicin per tablet e Simethicone Yes Take by [facility] 80 MG TABS 11-25 mouth. [facility] 14:32: of 28 Medicin e Glucagon 1 Yes Inject [facility] MG/0.2ML 11-25 into the [facility] SOAJ 14:32: skin. of 28 Medicin e dextrose 50 Yes once. [facility] % injection 11-25 [facility] 14:32: of 28 Medicin e Glucose 15 Yes Take by Alexander darnell g PACK 11-25 mouth. [facility] 14:32: of 28 Medicin e insulin Yes Inject [facility] aspart 11-25 into the [facility] (NOVOLOG) 14:32: skin 3 of 100 UNIT/ML 28 times Medicin injection daily e (before meals). Dextran Yes Apply to [facility] 70-Hypromel 11-25 eye. College lose 14:32: of (ARTIFICIAL 28 Medicin TEARS) e 0.1-0.3 % SOLN piperacilli Yes 2.25g Inject [facility] darnell n-tazobacta 11-25 2.25 g Colleg e m (ZOSYN) 14:32: into the of 2-0.25 28 vein every Medicin GM/50ML 6 hours. e IVPB ferrous Yes 325mg Take 325 [facility] sulfate 325 11-25 mg by [facility] (65 Fe) MG 14:32: mouth of tablet 28 daily. Medicin e insulin Yes Inject [facility] glargine 11-25 into the College (LANTUS) 14:32: skin of 100 UNIT/ML 28 nightly. Medi greyson injection e Epoetin Yes Inject as [facility] Bob-epbx 11-25 directed. [facility]le ge (RETACRIT) 14:32: of 3000 28 Medicin UNIT/ML e SOLN SENNA CO Yes by Ton 11-25 COMBINATIO [facility] 14:32: N route. of 28 Medicin e Sevelamer Yes Take by [facility] Carbonate 11-25 mouth. [facility] 800 MG TABS 14:32: of 28 Medicin e amlodipine Yes 10mg Take 10 mg [facility] (NORVASC) 11-25 by mouth Colleg e 10 MG 14:32: daily. of tablet 28 Medicin e carvedilol Yes 12.5mg Take 12.5 [facility] (COREG) - mg by [facility] 12.5 MG 14:32: mouth 2 of tablet 28 times Medicin daily e (with meals). gabapentin Yes 300mg Take 300 [facility] (NEURONTIN) - mg by [facility] 300 MG 14:32: mouth 3 of capsule 28 times Medicin daily. e ASPIRIN 81 Yes Take by Alexander darnell OR 11-25 mouth. [facility] 14:32: of 28 Medicin e Melatonin 3 Yes Take by [facility] MG TABS 11-25 mouth. [facility] 14:32: of 28 Medicin e Acetaminoph Yes Take by [facility] en 11-25 mouth two College (TYLENOL) 14:32: times of 325 MG CAPS 28 daily. Medici n e Docusate Yes Take by [facility] Sodium 100 11-25 mouth. [facility] MG TABS 14:32: of 28 Medicin e senna-docus Yes 1{tbl} Take 1 [facility] ate 11-25 Tablet by [facility] (SENOKOT S) 14:32: mouth of 8.6-50 MG 28 daily. Medicin per tablet e Simethicone Yes Take by [facility] 80 MG TABS 11-25 mouth. [facility] 14:32: of 28 Medicin e Glucagon 1 Yes Inject [facility] MG/0.2ML 11-25 into the [facility] SOAJ 14:32: skin. of 28 Medicin e dextrose 50 Yes once. [facility] % injection 11-25 [facility] 14:32: of 28 Medicin e Glucose 15 Yes Take by Alexander darnell g PACK 11-25 mouth. [facility] 14:32: of 28 Medicin e insulin Yes Inject [facility] aspart 11-25 into the [facility] (NOVOLOG) 14:32: skin 3 of 100 UNIT/ML 28 times Medicin injection daily e (before meals). Dextran Yes Apply to [facility] 70-Hypromel 11-25 eye. [facility] lose 14:32: of (ARTIFICIAL 28 Medicin TEARS) e 0.1-0.3 % SOLN piperacilli Yes 2.25g Inject Alexander darnell n-tazobacta 11-25 2.25 g [facility] (ZOSYN) 14:32: into the of 2-0.25 28 vein every Medicin GM/50ML 6 hours. e IVPB ferrous Yes 325mg Take 325 [facility] sulfate 325 11-25 mg by [facility] (65 Fe) MG 14:32: mouth of tablet 28 daily. Medicin e insulin Yes Inject [facility] glargine 11-25 into the [facility] (LANTUS) 14:32: skin of 100 UNIT/ML 28 nightly. Medi greyson injection e Epoetin Yes Inject as [facility] Bob-epbx 9-21 directed. [facility] (RETACRIT) 14:32: of 3000 28 Medicin UNIT/ML e SOLN atorvastati Yes 40mg Take 40 mg Ton n (LIPITOR) 8-24 by mouth Alexia ege 40 MG 16:32: daily. of tablet 09 Medicin e atorvastati Yes 40mg Take 40 mg [facility] n (LIPITOR) 8-24 by mouth [facility] e[facility] 40 MG 16:32: daily. of tablet 09 Medicin e SENNA CO Yes by Ton 8-24 COMBINATIO [facility] 16:32: N route. of 09 Medicin e Sevelamer Yes Take by [facility] Carbonate 8-24 mouth. [facility] 800 MG TABS 16:32: of 09 Medicin e amlodipine Yes 10mg Take 10 mg [facility] (NORVASC) 8-24 by mouth [facility] 10 MG 16:32: daily. of tablet 09 Medicin e carvedilol Yes 12.5mg Take 12.5 [facility] (COREG) 8-24 mg by [facility] 12.5 MG 16:32: mouth 2 of tablet 09 times Medicin daily e (with meals). gabapentin Yes 300mg Take 300 [facility] (NEURONTIN) 8-24 mg by [facility] 300 MG 16:32: mouth 3 of capsule 09 times Medicin daily. e ASPIRIN 81 Yes Take by Alexander darnell OR 8-24 mouth. [facility] 16:32: of 09 Medicin e Melatonin 3 Yes Take by [facility] MG TABS 8-24 mouth. [facility] 16:32: of 09 Medicin e Acetaminoph Yes Take by [facility] en 8-24 mouth two [facility] (TYLENOL) 16:32: times of 325 MG CAPS 09 daily. Medici n e Docusate Yes Take by [facility] r Sodium 100 8-24 mouth. [facility] MG TABS 16:32: of 09 Medicin e senna-docus Yes 1{tbl} Take 1 [facility] ate 8-24 Tablet by [facility] (SENOKOT S) 16:32: mouth of 8.6-50 MG 09 daily. Medicin per tablet e Simethicone Yes Take by [facility] 80 MG TABS 8- mouth. [facility] 16:32: of 09 Medicin e Glucagon 1 Yes Inject [facility] MG/0.2ML 10-28 into the [facility] SOAJ 16:32: skin. of Medicin e dextrose 50 Yes once. [facility] % injection 10-28 [facility] 16:32: of 09 Medicin e Glucose 15 Yes Take by Alexander darnell g PACK 10-28 mouth. [facility] 16:32: of 09 Medicin e insulin Yes Inject [facility] aspart 10-28 into the [facility] (NOVOLOG) 16:32: skin 3 of 100 UNIT/ML 09 times Medicin injection daily e (before meals). Dextran Yes Apply to [facility] 70-Hypromel 10-28 eye. [facility] lose 16:32: of (ARTIFICIAL 09 Medicin TEARS) e 0.1-0.3 % SOLN piperacilli Yes 2.25g Inject Alexander darnell n-tazobacta 10-28 2.25 g [facility] doherty m (ZOSYN) 16:32: into the of 2-0.25 09 vein every Medicin GM/50ML 6 hours. e IVPB atorvastati Yes 40mg Take 40 mg Ton n (LIPITOR) 10-28 by mouth Alexia ege 40 MG 16:32: daily. of tablet 09 Medicin e ferrous Yes 325mg Take 325 [facility] sulfate 325 - mg by [facility] (65 Fe) MG 16:32: mouth of tablet 09 daily. Medicin e insulin Yes Inject [facility] glargine 10-28 into the [facility] (LANTUS) 16:32: skin of 100 UNIT/ML 09 nightly. Medi greyson injection e Epoetin Yes Inject as [facility] Bob-epbx 10-28 directed. [facility] (RETACRIT) 16:32: of 3000 09 Medicin UNIT/ML e SOLN SENNA CO Yes by [facility] 8 [facility] 16[facility]: N route. of 31 Medicin e Sevelamer Yes Take by [facility] or Carbonate 8 mouth. [facility] 800 MG TABS 16:21: of 31 Medicin e amlodipine Yes 10mg Take 10 mg [facility] (NORVASC) 8-10 by mouth [facility] 10 MG 16:21: daily. of tablet 31 Medicin e carvedilol Yes 12.5mg Take 12.5 [facility] (COREG) 8-10 mg by [facility] 12.5 MG 16:21: mouth 2 of tablet 31 times Medicin daily e (with meals). gabapentin Yes 300mg Take 300 [facility] (NEURONTIN) 8-10 mg by [facility] 300 MG 16:21: mouth 3 of capsule 31 times Medicin daily. e ASPIRIN 81 0 Yes Take by Alexander darnell OR 8-10 mouth. [facility] 16:21: of 31 Medicin e Melatonin 3 Yes Take by [facility] MG TABS 8-10 mouth. [facility] 16:21: of 31 Medicin e Acetaminoph Yes Take by [facility] en 8-10 mouth [facility] (TYLENOL) 16:21: times of 325 MG CAPS 31 daily. Medici n e Docusate Yes Take by Alvarolo r Sodium 100 8-10 mouth. [facility] MG TABS 16:21: of 31 Medicin e senna-docus Yes 1{tbl} Take 1 [facility] ate 8-10 Tablet by [facility] (SENOKOT S) 16:21: mouth of 8.6-50 MG 31 daily. Medicin per tablet e Simethicone Yes Take by [facility] 80 MG TABS 8-10 mouth. [facility] 16:21: of 31 Medicin e Glucagon 1 Yes Inject [facility] MG/0.2ML 8-10 into the [facility] 16:21: skin. of 31 Medicin e dextrose 50 0 Yes once. [facility] % injection 8-10 [facility] 16:21: of 31 Medicin e Glucose 15 Yes Take by Alexander darnell g PACK 8-10 mouth. [facility] 16:21: of 31 Medicin e insulin Yes Inject [facility] aspart 8-10 into the [facility] (NOVOLOG) 16:21: skin 3 of 100 UNIT/ML 31 times Medicin injection daily e (before meals). Dextran Yes Apply to [facility] 70-Hypromel 8-10 eye. [facility] lose 16:21: of (ARTIFICIAL 31 Medicin TEARS) e 0.1-0.3 % SOLN piperacilli Yes 2.25g Inject Alexander darnell n-tazobacta 8-10 2.25 g [facility] e m (ZOSYN) 16:21: into the of 2-0.25 31 vein every Medicin GM/50ML 6 hours. e IVPB atorvastati Yes 40mg Take 40 mg [facility] n (LIPITOR) 8-10 by mouth [facility] e[facility] 40 MG 16:21: daily. of tablet 31 Medicin e ferrous Yes 325mg Take 325 [facility] sulfate 325 8-10 mg by [facility] (65 Fe) MG 16:21: mouth of tablet 31 daily. Medicin e insulin Yes Inject [facility] glargine 8-10 into the College (LANTUS) 16:21: skin of 100 UNIT/ML 31 nightly. Medi greyson injection e Epoetin Yes Inject as [facility] Bob-epbx 8-10 directed. [facility] (RETACRIT) 16:21: of 3000 31 Medicin UNIT/ML e SOLN SENNA CO Yes by [facility] 6- COMBINATIO [facility] 16:10: N route. of 22 Medicin e Sevelamer Yes Take by [facility] Carbonate 6-29 mouth. [facility] 800 MG TABS 16:10: of 22 Medicin e amlodipine Yes 10mg Take 10 mg [facility] (NORVASC) 6-29 by mouth [facility] 10 MG 16:10: daily. of tablet 22 Medicin e carvedilol Yes 12.5mg Take 12.5 [facility] (COREG) 6-29 mg by [facility] 12.5 MG 16:10: mouth 2 of tablet 22 times Medicin daily e (with meals). gabapentin Yes 300mg Take 300 [facility] (NEURONTIN) 6-29 mg by [facility] 300 MG 16:10: mouth 3 of capsule 22 times Medicin daily. e ASPIRIN 81 Yes Take by Alexander darnell OR 6-29 mouth. [facility] 16:10: of 22 Medicin e Melatonin 3 Yes Take by [facility] MG TABS 6-29 mouth. [facility] 16:10: of 22 Medicin e Acetaminoph Yes Take by Regis rojo en - mouth two [facility] (TYLENOL) 16:10: times of 325 MG CAPS 22 daily. Medici n e Docusate Yes Take by [facility] Sodium 100 09-02 mouth. [facility] MG TABS 16:10: of 22 Medicin e senna-docus Yes 1{tbl} Take 1 [facility] ate - Tablet by [facility] (SENOKOT S) 16:10: mouth of 8.6-50 MG 22 daily. Medicin per tablet e Simethicone Yes Take by Regis rojo 80 MG TABS 09-02 mouth. [facility] 16:10: of 22 Medicin e Glucagon 1 Yes Inject [facility] MG/0.2ML 09-02 into the [facility] SOA 16:10: skin. of 22 Medicin e dextrose 50 Yes once. [facility] % injection 09-02 [facility] 16:10: of 22 Medicin e Glucose 15 Yes Take by Alexander darnell g PACK 09-02 mouth. [facility] 16:10: of 22 Medicin e insulin Yes Inject [facility] aspart 09-02 into the [facility] (NOVOLOG) 16:10: skin 3 of 100 UNIT/ML 22 times Medicin injection daily e (before meals). Dextran Yes Apply to [facility] 70-Hypromel 09-02 eye. [facility] lose 16:10: of (ARTIFICIAL 22 Medicin TEARS) e 0.1-0.3 % SOLN piperacilli Yes 2.25g Inject Alexander darnell n-tazobacta 09-02 2.25 g [facility] (ZOSYN) 16:10: into the of 2-0.25 22 vein every Medicin GM/50ML 6 hours. e IVPB atorvastati Yes 40mg Take 40 mg [facility] n (LIPITOR) 09-02 by mouth Alexia ege 40 MG 16:10: daily. of tablet 22 Medicin e ferrous Yes 325mg Take 325 [facility] sulfate 325 - mg by [facility] (65 Fe) MG 16:10: mouth of tablet 22 daily. Medicin e insulin Yes Inject Ton glargine 09-02 into the College (LANTUS) 16:10: skin of 100 UNIT/ML 22 nightly. Medi greyson injection e Epoetin Yes Inject as [facility] Bob-epbx -29 directed. [facility] ge (RETACRIT) 16:10: of 3000 22 Medicin UNIT/ML e SOLN SENNA CO Yes by [facility] 5-18 COMBINATIO [facility] 13:26: N route. of 10 Medicin e Sevelamer Yes Take by [facility] or Carbonate 5-18 mouth. [facility] 800 MG TABS 13:26: of 10 Medicin e amlodipine Yes 10mg Take 10 mg [facility] (NORVASC) 5-18 by mouth [facility] 10 MG 13:26: daily. of tablet 10 Medicin e carvedilol Yes 12.5mg Take 12.5 [facility] (COREG) 5-18 mg by [facility] 12.5 MG 13:26: mouth 2 of tablet 10 times Medicin daily e (with meals). gabapentin Yes 300mg Take 300 [facility] (NEURONTIN) 5-18 mg by [facility] 300 MG 13:26: mouth 3 of capsule 10 times Medicin daily. e ASPIRIN 81 Yes Take by Alexander darnell OR 5-18 mouth. [facility] 13:26: of 10 Medicin e Melatonin 3 Yes Take by [facility] MG TABS 5-18 mouth. [facility] 13:26: of 10 Medicin e Acetaminoph Yes Take by [facility] en 5-18 mouth two [facility] (TYLENOL) 13:26: times of 325 MG CAPS 10 daily. Medici n e Docusate Yes Take by [facility]lo r Sodium 100 5-18 mouth. College MG TABS 13:26: of 10 Medicin e senna-docus Yes 1{tbl} Take 1 [facility] ate 5-18 Tablet by [facility] (SENOKOT S) 13:26: mouth of 8.6-50 MG 10 daily. Medicin per tablet e Simethicone Yes Take by [facility] 80 MG TABS 5-18 mouth. [facility] 13:26: of 10 Medicin e Glucagon 1 Yes Inject [facility] MG/0.2ML 5-18 into the [facility] SOAJ 13:26: skin. of 10 Medicin e dextrose 50 Yes once. [facility] % injection -18 [facility] 13:26: of 10 Medicin e Glucose 15 Yes Take by Alexander darnell g PACK -18 mouth. [facility] 13:26: of 10 Medicin e insulin Yes Inject [facility] aspart 5-18 into the [facility] (NOVOLOG) 13:26: skin 3 of 100 UNIT/ML 10 times Medicin injection daily e (before meals). Dextran Yes Apply to [facility] 70-Hypromel -18 eye. [facility] lose 13:26: of (ARTIFICIAL 10 Medicin TEARS) e 0.1-0.3 % SOLN piperacilli Yes 2.25g Inject Alexander darnell n-tazobacta -18 2.25 g [facility] (ZOSYN) 13:26: into the of 2-0.25 10 vein every Medicin GM/50ML 6 hours. e IVPB atorvastati Yes 40mg Take 40 mg [facility] n (LIPITOR) 5-18 by mouth [facility] 40 MG 13:26: daily. of tablet 10 Medicin e ferrous Yes 325mg Take 325 [facility] sulfate 325 5-18 mg by [facility] (65 Fe) MG 13:26: mouth of tablet 10 daily. Medicin e insulin Yes Inject [facility] glargine 5-18 into the [facility] (LANTUS) 13:26: skin of 100 UNIT/ML 10 nightly. Medi greyson injection e Epoetin Yes Inject as [facility] Bob-epbx 5-18 directed. [facility] (RETACRIT) 13:26: of 3000 10 Medicin UNIT/ML e SOLN SENNA CO Yes by Ton 5-18 [facility] 13:26: N route. of 10 Medicin e Sevelamer Yes Take by [facility] or Carbonate 5-18 mouth. [facility] 800 MG TABS 13:26: of 10 Medicin e amlodipine Yes 10mg Take 10 mg [facility] (NORVASC) 5-18 by mouth [facility] 10 MG 13:26: daily. of tablet 10 Medicin e carvedilol Yes 12.5mg Take 12.5 [facility] (COREG) 5-18 mg by [facility] 12.5 MG 13:26: mouth 2 of tablet 10 times Medicin daily e (with meals). gabapentin 0 Yes 300mg Take 300 [facility] (NEURONTIN) 5-18 mg by [facility] 300 MG 13:26: mouth 3 of capsule 10 times Medicin daily. e ASPIRIN 81 Yes Take by Alexander darnell OR 5-18 mouth. [facility] 13:26: of 10 Medicin e Melatonin 3 Yes Take by [facility] MG TABS 5-18 mouth. [facility] 13:26: of 10 Medicin e Acetaminoph Yes Take by [facility] en 5-18 mouth two [facility] (TYLENOL) 13:26: times of 325 MG CAPS 10 daily. Medici n e Docusate Yes Take by [facility] Sodium 100 5-18 mouth. [facility] MG TABS 13:26: of 10 Medicin e senna-docus Yes 1{tbl} Take 1 [facility] ate 5-18 Tablet by [facility] (SENOKOT S) 13:26: mouth of 8.6-50 MG 10 daily. Medicin per tablet e Simethicone Yes Take by [facility] 80 MG TABS 5-18 mouth. [facility] 13:26: of 10 Medicin e Glucagon 1 Yes Inject [facility] MG/0.2ML 5-18 into the [facility] SOAJ 13:26: skin. of 10 Medicin e dextrose 50 0 Yes once. [facility] % injection -18 [facility] 13:26: of 10 Medicin e Glucose 15 Yes Take by Alexander darnell g PACK -18 mouth. [facility] 13:26: of 10 Medicin e insulin Yes Inject Ton aspart 5-18 into the [facility] (NOVOLOG) 13:26: skin 3 of 100 UNIT/ML 10 times Medicin injection daily e (before meals). Dextran Yes Apply to [facility] 70-Hypromel 5-18 eye. [facility] lose 13:26: of (ARTIFICIAL 10 Medicin TEARS) e 0.1-0.3 % SOLN piperacilli Yes 2.25g Inject Alexander darnell n-tazobacta 5-18 2.25 g [facility] (ZOSYN) 13:26: into the of 2-0.25 10 vein every Medicin GM/50ML 6 hours. e IVPB atorvastati Yes 40mg Take 40 mg Ton n (LIPITOR) 5-18 by mouth [facility]ia e[facility] 40 MG 13:26: daily. of tablet 10 Medicin e ferrous Yes 325mg Take 325 [facility] sulfate 325 5-18 mg by [facility] (65 Fe) MG 13:26: mouth of tablet [...] x 5.0 cm x 1.0 cm collagenase 2021-0 Yes Apply [facility] 250 UNIT/GM 5-18 Daily to Alexia ege ointment 00:00: all right of 00 foot Medicin wounds e daily with wound careMeasur ements 4.0cm x 5.0 cm x 1.0 cm collagenase 2021-0 Yes Apply [facility] 250 UNIT/GM 5-18 Daily to [facility] e[facility] ointment 00:00: all right of 00 foot Medicin wounds e daily with wound careMeasur ements 4.0cm x 5.0 cm x 1.0 cm collagenase 2021-0 Yes Apply [facility] 250 UNIT/GM 5-18 Daily to [facility] e[facility] ointment 00:00: all right of 00 foot Medicin wounds e daily with wound careMeasur ements 4.0cm x 5.0 cm x 1.0 cm collagenase 2021-0 Yes Apply [facility] 250 UNIT/GM 5-18 Daily to [facility]ia ege ointment 00:00: all right of 00 foot Medicin wounds e daily with wound careMeasur ements 4.0cm x 5.0 cm x 1.0 cm collagenase 2021-0 Yes Apply [facility] 250 UNIT/GM 5-18 Daily to [facility]ia ege ointment 00:00: all right of 00 foot Medicin wounds e daily with wound careMeasur ements 4.0cm x 5.0 cm x 1.0 cm collagenase 2021-0 Yes Apply [facility] 250 UNIT/GM 5-18 Daily to [facility]ia ege ointment 00:00: all right of 00 foot Medicin wounds e daily with wound careMeasur ements 4.0cm x 5.0 cm x 1.0 cm collagenase 2021-0 Yes Apply [facility] 250 UNIT/GM 5-18 Daily to [facility]ia ege ointment 00:00: all right of 00 foot Medicin wounds e daily with wound careMeasur ements 4.0cm x 5.0 cm x 1.0 cm collagenase 2021-0 Yes Apply [facility] 250 UNIT/GM 5-18 Daily to [facility]ia ege ointment 00:00: all right of 00 foot Medicin wounds e daily with wound careMeasur ements 4.0cm x 5.0 cm x 1.0 cm hydrALAZINE 2020-0 1- No 25mg Take 25 mg [facility] (APRESOLINE 420 04-20 by mouth 3 C [facility]lege ) 25 MG 20:48: 00:00 times of tablet 19 :00 daily. Medicin e hydrALAZINE 2020-0 Yes [facility] (APRESOLINE 414 [facility] ) 100 MG 00:00: of tablet 00 Medicin e NIFEdipine 2020-0 Yes 60mg Take 60 mg [facility] (ADALAT CC) 4-14 by mouth [facility]ia ege 60 MG CR 00:00: daily. of tablet 00 Medicin e Tamsulosin 2020-0 Yes .4mg Take 0.4 Alexander darnell HCl 0.4 MG 4-14 mg by [facility] CAPS 00:00: mouth of 00 daily. Medicin e hydrALAZINE 2020-0 Yes [facility] (APRESOLINE 4-14 [facility] ) 100 MG 00:00: of tablet 00 Medicin e NIFEdipine 2020-0 Yes 60mg Take 60 mg [facility] (ADALAT CC) 4-14 by mouth [facility]ia ege 60 MG CR 00:00: daily. of tablet 00 Medicin e Tamsulosin 2020-0 Yes .4mg Take 0.4 Alexander darnell HCl 0.4 MG 4-14 mg by [facility] CAPS 00:00: mouth of 00 daily. Medicin e hydrALAZINE 2020-0 Yes [facility] (APRESOLINE 4-14 [facility] ) 100 MG 00:00: of tablet 00 Medicin e NIFEdipine 2020-0 Yes 60mg Take 60 mg [facility] (ADALAT CC) 4-14 by mouth [facility]ia ege 60 MG CR 00:00: daily. of tablet 00 Medicin e Tamsulosin 2020-0 Yes .4mg Take 0.4 Alexander darnell HCl 0.4 MG 4-14 mg by [facility] CAPS 00:00: mouth of 00 daily. Medicin e hydrALAZINE 2020-0 Yes [facility] (APRESOLINE 4-14 [facility] ) 100 MG 00:00: of tablet 00 Medicin e NIFEdipine 2020-0 Yes 60mg Take 60 mg [facility] (ADALAT CC) 4-14 by mouth [facility]ia ege 60 MG CR 00:00: daily. of tablet 00 Medicin e Tamsulosin 2020-0 Yes .4mg Take 0.4 Alexander darnell HCl 0.4 MG 4-14 mg by [facility] CAPS 00:00: mouth of 00 daily. Medicin e hydrALAZINE 2020-0 Yes [facility] (APRESOLINE 4-14 [facility] ) 100 MG 00:00: of tablet 00 Medicin e NIFEdipine 2020-0 Yes 60mg Take 60 mg [facility] (ADALAT CC) 4-14 by mouth Alexia ege 60 MG CR 00:00: daily. of tablet 00 Medicin e Tamsulosin 2020-0 Yes .4mg Take 0.4 Alexander darnell HCl 0.4 MG 4-14 mg by [facility] CAPS 00:00: mouth of 00 daily. Medicin e hydrALAZINE 2020-0 Yes [facility] (APRESOLINE 4-14 [facility] ) 100 MG 00:00: of tablet 00 Medicin e NIFEdipine 2020-0 Yes 60mg Take 60 mg [facility] (ADALAT CC) 4-14 by mouth Alexia ege 60 MG CR 00:00: daily. of tablet 00 Medicin e Tamsulosin 2020-0 Yes .4mg Take 0.4 Alexander darnell HCl 0.4 MG 4-14 mg by [facility] CAPS 00:00: mouth of 00 daily. Medicin e hydrALAZINE 2020-0 Yes [facility] (APRESOLINE 4-14 [facility] ) 100 MG 00:00: of tablet 00 Medicin e NIFEdipine 2020-0 Yes 60mg Take 60 mg [facility] (ADALAT CC) 4-14 by mouth Alexia ege 60 MG CR 00:00: daily. of tablet 00 Medicin e Tamsulosin 2020-0 Yes .4mg Take 0.4 Alexander darnell HCl 0.4 MG 4-14 mg by [facility] CAPS 00:00: mouth of 00 daily. Medicin e hydrALAZINE 2020-0 Yes [facility] (APRESOLINE 4-14 [facility] ) 100 MG 00:00: of tablet 00 Medicin e NIFEdipine 2020-0 Yes 60mg Take 60 mg [facility] (ADALAT CC) 4-14 by mouth Alexia ege 60 MG CR 00:00: daily. of tablet 00 Medicin e Tamsulosin 2020-0 Yes .4mg Take 0.4 Alexander darnell HCl 0.4 MG 4-14 mg by [facility] CAPS 00:00: mouth of 00 daily. Medicin e hydrALAZINE 2021-0 Yes [facility] (APRESOLINE 06-18 [facility] ) 100 MG 00:00: of tablet 00 Medicin e hydrALAZINE 2020-0 Yes [facility] (APRESOLINE 06-18 [facility] ) 100 MG 00:00: of tablet 00 Medicin e NIFEdipine 2020-0 Yes 60mg Take 60 mg [facility] (ADALAT CC) 4-14 by mouth Alexia ege 60 MG CR 00:00: daily. of tablet 00 Medicin e Tamsulosin 2020-0 Yes .4mg Take 0.4 Alexander darnell HCl 0.4 MG 4-14 mg by [facility] CAPS 00:00: mouth of 00 daily. Medicin e hydrALAZINE 2020-0 Yes [facility] (APRESOLINE 06-18 [facility] ) 100 MG 00:00: of tablet 00 Medicin e NIFEdipine 2020-0 Yes 60mg Take 60 mg [facility] (ADALAT CC) 4-14 by mouth Alexia ege 60 MG CR 00:00: daily. of tablet 00 Medicin e Tamsulosin 2020-0 Yes .4mg Take 0.4 Alexander darnell HCl 0.4 MG 4-14 mg by [facility] CAPS 00:00: mouth of 00 daily. Medicin e hydrALAZINE 2020-0 Yes [facility] (APRESOLINE 06-18 [facility] ) 100 MG 00:00: of tablet 00 Medicin e NIFEdipine 2020-0 Yes 60mg Take 60 mg [facility] (ADALAT CC) 4-14 by mouth Alexia ege 60 MG CR 00:00: daily. of tablet 00 Medicin e Tamsulosin 2020-0 Yes .4mg Take 0.4 Alexander darnell HCl 0.4 MG 4-14 mg by [facility] CAPS 00:00: mouth of 00 daily. Medicin e hydrALAZINE 2020-0 Yes [facility] (APRESOLINE 06-18 [facility] ) 100 MG 00:00: of tablet 00 Medicin e NIFEdipine 2020-0 Yes 60mg Take 60 mg [facility] (ADALAT CC) 4-14 by mouth Alexia ege 60 MG CR 00:00: daily. of tablet 00 Medicin e Tamsulosin 2020-0 Yes .4mg Take 0.4 Alexander darnell HCl 0.4 MG 4-14 mg by [facility] CAPS 00:00: mouth of 00 daily. Medicin e hydrALAZINE 2020-0 Yes [facility] (APRESOLINE 06-18 [facility] ) 100 MG 00:00: of tablet 00 Medicin e NIFEdipine Yes 60mg Take 60 mg [facility] (ADALAT CC) 4-14 by mouth Alexia ege 60 MG CR 00:00: daily. of tablet 00 Medicin e Tamsulosin Yes .4mg Take 0.4 Alexander darnell HCl 0.4 MG 4-14 mg by [facility] CAPS 00:00: mouth of 00 daily. Medicin e SENNA CO 0 Yes by [facility] 3-24 COMBINATIO [facility] 22:07: N route. of 59 Medicin e hydrALAZINE Yes 25mg Take 25 mg [facility] (APRESOLINE 3-24 by mouth 3 [facility] ) 25 MG 22:07: times of tablet 59 daily. Medicin e Sevelamer Yes Take by [facility] Carbonate 3-24 mouth. [facility] 800 MG TABS 22:07: of 59 Medicin e amlodipine Yes 10mg Take 10 mg [facility] (NORVASC) 3-24 by mouth [facility] e 10 MG 22:07: daily. of tablet 59 Medicin e carvedilol Yes 12.5mg Take 12.5 [facility] (COREG) 3-24 mg by [facility] 12.5 MG 22:07: mouth 2 of tablet 59 times Medicin daily e (with meals). gabapentin Yes 300mg Take 300 [facility] (NEURONTIN) 3-24 mg by [facility] 300 MG 22:07: mouth 3 of capsule 59 times Medicin daily. e ASPIRIN 81 Yes Take by Alexander darnell OR 3-24 mouth. [facility] 22:07: of 59 Medicin e Melatonin 3 0 Yes Take by [facility] MG TABS 3-24 mouth. [facility] 22:07: of 59 Medicin e Acetaminoph 0 Yes Take by [facility] en 3-24 mouth two [facility] (TYLENOL) 22:07: times of 325 MG CAPS 59 daily. Medici n e Docusate Yes Take by Alexanderlo r Sodium 100 3-24 mouth. College MG TABS 22:07: of 59 Medicin e senna-docus Yes 1{tbl} Take 1 [facility] ate 3-24 Tablet by [facility] (SENOKOT S) 22:07: mouth of 8.6-50 MG 59 daily. Medicin per tablet e Simethicone Yes Take by Regis rojo 80 MG TABS 3-24 mouth. [facility] 22:07: of 59 Medicin e Glucagon 1 Yes Inject [facility] MG/0.2ML 3-24 into the [facility] SOAJ 22:07: skin. of 59 Medicin e dextrose 50 Yes once. [facility] % injection -24 [facility] 22:07: of 59 Medicin e Glucose 15 Yes Take by Alexander darnell g PACK 3-24 mouth. [facility] 22:07: of 59 Medicin e insulin Yes Inject Ton aspart 3-24 into the [facility] (NOVOLOG) 22:07: skin 3 of 100 UNIT/ML 59 times Medicin injection daily e (before meals). Dextran Yes Apply to [facility] 70-Hypromel 3-24 eye. [facility] lose 22:07: of (ARTIFICIAL 59 Medicin TEARS) e 0.1-0.3 % SOLN piperacilli Yes 2.25g Inject Alexander darnell n-tazobacta 3-24 2.25 g [facility] m (ZOSYN) 22:07: into the of 2-0.25 59 vein every Medicin GM/50ML 6 hours. e IVPB atorvastati Yes 40mg Take 40 mg Ton n (LIPITOR) 3-24 by mouth Alexia ege 40 MG 22:07: daily. of tablet 59 Medicin e ferrous Yes 325mg Take 325 [facility] sulfate 325 3-24 mg by [facility] (65 Fe) MG 22:07: mouth of tablet 59 daily. Medicin e insulin Yes Inject Ton glargine 3-24 into the [facility] (LANTUS) 22:07: skin of 100 UNIT/ML 59 nightly. Medi greyson injection e Epoetin Yes Inject as [facility] Bob-epbx 3-24 directed. [facility] (RETACRIT) 22:07: of 3000 59 Medicin UNIT/ML e SOLN SENNA CO Yes by [facility] 3-24 COMBINATIO [facility] 22:07: N route. of 59 Medicin e Sevelamer Yes Take by [facility] Carbonate 3-24 mouth. [facility] 800 MG TABS 22:07: of 59 Medicin e amlodipine 0 Yes 10mg Take 10 mg [facility] (NORVASC) 3-24 by mouth [facility] e 10 MG 22:07: daily. of tablet 59 Medicin e carvedilol Yes 12.5mg Take 12.5 [facility] (COREG) 3-24 mg by [facility] 12.5 MG 22:07: mouth 2 of tablet 59 times Medicin daily e (with meals). gabapentin Yes 300mg Take 300 [facility] (NEURONTIN) 3-24 mg by [facility] 300 MG 22:07: mouth 3 of capsule 59 times Medicin daily. e ASPIRIN 81 Yes Take by Alexander darnell OR 3-24 mouth. [facility] 22:07: of 59 Medicin e Melatonin 3 Yes Take by [facility] MG TABS 3-24 mouth. [facility] 22:07: of 59 Medicin e Acetaminoph Yes Take by [facility] en 3-24 mouth [facility] (TYLENOL) 22:07: times of 325 MG CAPS 59 daily. Medici n e Docusate Yes Take by [facility] Sodium 100 3-24 mouth. [facility] MG TABS 22:07: of 59 Medicin e senna-docus Yes 1{tbl} Take 1 [facility] ate 3-24 Tablet by [facility] (SENOKOT S) 22:07: mouth of 8.6-50 MG 59 daily. Medicin per tablet e Simethicone Yes Take by [facility] 80 MG TABS 3-24 mouth. [facility] 22:07: of 59 Medicin e Glucagon 1 Yes Inject [facility] MG/0.2ML 3-24 into the [facility] SOAJ 22:07: skin. of 59 Medicin e dextrose 50 0 Yes once. [facility] % injection 3-24 [facility] 22:07: of 59 Medicin e Glucose 15 Yes Take by Alexander darnell g PACK 3-24 mouth. [facility] 22:07: of 59 Medicin e insulin Yes Inject Ton aspart 3-24 into the College (NOVOLOG) 22:07: skin 3 of 100 UNIT/ML 59 times Medicin injection daily e (before meals). Dextran Yes Apply to [facility] 70-Hypromel 3-24 eye. College lose 22:07: of (ARTIFICIAL 59 Medicin TEARS) e 0.1-0.3 % SOLN piperacilli Yes 2.25g Inject Alexander darnell n-tazobacta 3-24 2.25 g [facility] m (ZOSYN) 22:07: into the of 2-0.25 59 vein every Medicin GM/50ML 6 hours. e IVPB atorvastati Yes 40mg Take 40 mg [facility] n (LIPITOR) 3-24 by mouth Alexia ege 40 MG 22:07: daily. of tablet 59 Medicin e ferrous Yes 325mg Take 325 [facility] sulfate 325 3-24 mg by [facility] (65 Fe) MG 22:07: mouth of tablet 59 daily. Medicin e insulin Yes Inject [facility] glargine 3-24 into the College (LANTUS) 22:07: skin of 100 UNIT/ML 59 nightly. Medi greyson injection e Epoetin Yes Inject as [facility] or Bob-epbx 3-24 directed. [facility]le [facility] (RETACRIT) 22:07: of 3000 59 Medicin UNIT/ML e SOLN SENNA CO Yes by Ton 3-09 [facility] 22:27: N route. of 38 Medicin e hydrALAZINE Yes 25mg Take 25 mg [facility] (APRESOLINE 3-09 by mouth 3 Co [facility]lege ) 25 MG 22:27: times of tablet 38 daily. Medicin e Sevelamer Yes Take by [facility] or Carbonate 3-09 mouth. [facility] 800 MG TABS 22:27: of 38 Medicin e amlodipine Yes 10mg Take 10 mg [facility] (NORVASC) 3-09 by mouth Colleg [facility] 10 MG 22:27: daily. of tablet 38 Medicin e carvedilol Yes 12.5mg Take 12.5 [facility] (COREG) 3-09 mg by [facility] 12.5 MG 22:27: mouth 2 of tablet 38 times Medicin daily e (with meals). gabapentin Yes 300mg Take 300 [facility] (NEURONTIN) 3-09 mg by [facility] 300 MG 22:27: mouth 3 of capsule 38 times Medicin daily. e ASPIRIN 81 Yes Take by Alexander darnell OR 3-09 mouth. [facility] 22:27: of 38 Medicin e Melatonin 3 Yes Take by [facility] MG TABS 3-09 mouth. [facility] 22:27: of 38 Medicin e Acetaminoph Yes Take by [facility] en - mouth two [facility] (TYLENOL) 22:27: times of 325 MG CAPS 38 daily. Medici n e Docusate Yes Take by [facility] Sodium 100 - mouth. [facility] MG TABS 22:27: of 38 Medicin e senna-docus Yes 1{tbl} Take 1 [facility] ate 05-13 Tablet by [facility] (SENOKOT S) 22:27: mouth of 8.6-50 MG 38 daily. Medicin per tablet e Simethicone Yes Take by [facility] 80 MG TABS -09 mouth. [facility] 22:27: of 38 Medicin e Glucagon 1 Yes Inject [facility] MG/0.2ML 05-13 into the [facility] SOAJ 22:27: skin. of 38 Medicin e dextrose 50 Yes once. [facility] % injection 05-13 [facility] 22:27: of 38 Medicin e Glucose 15 Yes Take by Alexander darnell g PACK 05-13 mouth. [facility] 22:27: of 38 Medicin e insulin Yes Inject [facility] aspart 05-13 into the [facility] (NOVOLOG) 22:27: skin 3 of 100 UNIT/ML 38 times Medicin injection daily e (before meals). Dextran Yes Apply to [facility] 70-Hypromel 05-13 eye. [facility] lose 22:27: of (ARTIFICIAL 38 Medicin TEARS) e 0.1-0.3 % SOLN piperacilli Yes 2.25g Inject Alexander darnell n-tazobacta 05-13 2.25 g [facility] m (ZOSYN) 22:27: into the of 2-0.25 38 vein every Medicin GM/50ML 6 hours. e IVPB atorvastati Yes 40mg Take 40 mg [facility] n (LIPITOR) 3-09 by mouth Alexia ege 40 MG 22:27: daily. of tablet 38 Medicin e ferrous Yes 325mg Take 325 [facility] sulfate 325 3-09 mg by [facility] (65 Fe) MG 22:27: mouth of tablet 38 daily. Medicin e insulin Yes Inject [facility] glargine 05-13 into the [facility] (LANTUS) 22:27: skin of 100 UNIT/ML 38 nightly. Medi greyson injection e Epoetin Yes Inject as [facility] Bob-epbx 05-13 directed. [facility] ge (RETACRIT) 22:27: of 3000 38 Medicin UNIT/ML e SOLN SENNA CO [facility] of 53 Medicin e hydrALAZINE Yes 25mg Take 25 mg [facility] (APRESOLINE 2-23 by mouth 3 Co llege ) 25 MG 21:36: times of tablet 53 daily. Medicin e Sevelamer Yes Take by [facility] Carbonate 2-23 mouth. [facility] 800 MG TABS 21:36: of 53 Medicin e amlodipine Yes 10mg Take 10 mg [facility] (NORVASC) 2-23 by mouth [facility] 10 MG 21:36: daily. of tablet 53 Medicin e carvedilol Yes 12.5mg Take 12.5 [facility] (COREG) 2-23 mg by [facility] 12.5 MG 21:36: mouth 2 of tablet 53 times Medicin daily e (with meals). gabapentin Yes 300mg Take 300 [facility] (NEURONTIN) 2-23 mg by [facility] 300 MG 21:36: mouth 3 of capsule 53 times Medicin daily. e ASPIRIN 81 Yes Take by Alexander darnell OR 2-23 mouth. [facility] 21:36: of 53 Medicin e Melatonin 3 0 Yes Take by [facility] MG TABS 2-23 mouth. [facility] 21:36: of 53 Medicin e Acetaminoph Yes Take by [facility] en 2-23 mouth [facility] (TYLENOL) 21:36: times of 325 MG CAPS 53 daily. Medici n e Docusate Yes Take by [facility] Sodium 100 2-23 mouth. [facility] MG TABS 21:36: of 53 Medicin e senna-docus Yes 1{tbl} Take 1 [facility] ate 2-23 Tablet by [facility] (SENOKOT S) 21:36: mouth of 8.6-50 MG 53 daily. Medicin per tablet e Simethicone Yes Take by Regis [facility]lor 80 MG TABS 2-23 mouth. [facility] 21:36: of 53 Medicin e Glucagon 1 Yes Inject [facility] MG/0.2ML 2-23 into the [facility] SOAJ 21:36: skin. of 53 Medicin e dextrose 50 Yes once. [facility] % injection - [facility] 21:36: of 53 Medicin e Glucose 15 Yes Take by Alexander darnell g PACK 2- mouth. [facility] 21:36: of 53 Medicin e insulin Yes Inject [facility] aspart 2-23 into the [facility] (NOVOLOG) 21:36: skin 3 of 100 UNIT/ML 53 times Medicin injection daily e (before meals). Dextran Yes Apply to [facility] 70-Hypromel 2-23 eye. [facility] lose 21:36: of (ARTIFICIAL 53 Medicin TEARS) e 0.1-0.3 % SOLN piperacilli Yes 2.25g Inject Alexander darnell n-tazobacta 2-23 2.25 g [facility] lo (ZOSYN) 21:36: into the of 2-0.25 53 vein every Medicin GM/50ML 6 hours. e IVPB atorvastati Yes 40mg Take 40 mg [facility] n (LIPITOR) 2-23 by mouth Alexia ege 40 MG 21:36: daily. of tablet 53 Medicin e ferrous Yes 325mg Take 325 [facility] sulfate 325 2-23 mg by [facility] (65 Fe) MG 21:36: mouth of tablet 53 daily. Medicin e insulin Yes Inject [facility] glargine 2-23 into the [facility] (LANTUS) 21:36: skin of 100 UNIT/ML 53 [...] 00 Medicin e SENNA CO Yes by [facility] 2- COMBINATIO [facility] 22:05: N route. of Medicin e hydrALAZINE Yes 25mg Take 25 mg [facility] (APRESOLINE 2-02 by mouth 3 Co [facility] ) 25 MG 22:05: times of tablet 01 daily. Medicin e Sevelamer Yes Take by [facility] Carbonate 2-02 mouth. [facility] 800 MG TABS 22:05: of Medicin e amlodipine Yes 10mg Take 10 mg [facility] (NORVASC) 2-02 by mouth Colleg e 10 MG 22:05: daily. of tablet 01 Medicin e carvedilol Yes 12.5mg Take 12.5 [facility] (COREG) 2-02 mg by [facility] 12.5 MG 22:05: mouth 2 of tablet 01 times Medicin daily e (with meals). gabapentin Yes 300mg Take 300 [facility] (NEURONTIN) 2-02 mg by [facility] 300 MG 22:05: mouth 3 of capsule 01 times Medicin daily. e ASPIRIN 81 Yes Take by Alexander darnell OR 2-02 mouth. [facility] 22:05: of Medicin e Melatonin 3 Yes Take by [facility] MG TABS 2-02 mouth. [facility] 22:05: of Medicin e Acetaminoph Yes Take by [facility] en 2-02 mouth [facility] (TYLENOL) 22:05: times of 325 MG CAPS daily. Medici n e Docusate Yes Take by [facility] Sodium 100 2-02 mouth. [facility] MG TABS 22:05: of 01 Medicin e senna-docus Yes 1{tbl} Take 1 [facility] ate 2-02 Tablet by [facility] (SENOKOT S) 22:05: mouth of 8.6-50 MG 01 daily. Medicin per tablet e Simethicone Yes Take by Regis [facility]lor 80 MG TABS 2-02 mouth. [facility] 22:05: of 01 Medicin e Glucagon 1 Yes Inject [facility] MG/0.2ML -02 into the [facility] SOA 22:05: skin. of Medicin e dextrose 50 Yes once. [facility] % injection 04-08 [facility] 22:05: of Medicin e Glucose 15 Yes Take by Alexander darnell g PACK 2-02 mouth. [facility] 22:05: of Medicin e insulin Yes Inject [facility] aspart 2-02 into the [facility] (NOVOLOG) 22:05: skin 3 of 100 UNIT/ML 01 times Medicin injection daily e (before meals). Dextran Yes Apply to [facility] 70-Hypromel 202 eye. [facility] lose 22:05: of (ARTIFICIAL 01 Medicin TEARS) e 0.1-0.3 % SOLN piperacilli Yes 2.25g Inject Alexander darnell n-tazobacta -02 2.25 g [facility] m (ZOSYN) 22:05: into the of 2-0.25 01 vein every Medicin GM/50ML 6 hours. e IVPB atorvastati Yes 40mg Take 40 mg [facility] n (LIPITOR) 2-02 by mouth Alexia ege 40 MG 22:05: daily. of tablet 01 Medicin e ferrous Yes 325mg Take 325 [facility] sulfate 325 2-02 mg by [facility] (65 Fe) MG 22:05: mouth of tablet 01 daily. Medicin e insulin Yes Inject [facility] glargine 2-02 into the [facility] (LANTUS) 22:05: skin of 100 UNIT/ML 01 nightly. Medi greyson injection e Epoetin Yes Inject as [facility] Bob-epbx 2-02 directed. [facility] (RETACRIT) 22:05: of 3000 01 Medicin UNIT/ML e SOLN Spironolact 2020- No Take by [facility] one 25 04-08 mouth. College MG/5ML SUSP 22:05: 00:00 of 01 :00 Medicin e furosemide 0 2020- No 40mg Take 40 mg [facility] (LASIX) 40 04-08 by mouth Alexia ege MG tablet 22:04: 00:00 daily. of 57 :00 Medicin e SENNA CO Yes by [facility] 1-05 [facility] 21:48: N route. of 54 Medicin e [...] Take by [facility] Carbonate 1-05 mouth. [facility] 800 MG TABS 21:48: of 54 Medicin e amlodipine Yes 10mg Take 10 mg [facility] (NORVASC) 05 by mouth Colleg e 10 MG 21:48: daily. of tablet 54 Medicin e Spironolact Yes Take by [facility] one 25 1-05 mouth. [facility] MG/5ML SUSP 21:48: of 54 Medicin e carvedilol Yes 12.5mg Take 12.5 [facility] (COREG) 1-05 mg by [facility] 12.5 MG 21:48: mouth 2 of tablet 54 times Medicin daily e (with meals). gabapentin Yes 300mg Take 300 [facility] (NEURONTIN) 1-05 mg by [facility] 300 MG 21:48: mouth 3 of capsule 54 times Medicin daily. e ASPIRIN 81 Yes Take by Alexander darnell OR 1-05 mouth. [facility] 21:48: of 54 Medicin e SENNA CO 2019-03 Yes by [facility] 0-27 [facility] 21:35: N route. of 11 Medicin e furosemide 2019-03 Yes 40mg Take 40 mg [facility] (LASIX) 40 0-27 by mouth Colle ge MG tablet 21:35: daily. of 11 Medicin e hydrALAZINE 2019-03 Yes 25mg Take 25 mg [facility] (APRESOLINE 0-27 by mouth 3 Co [facility]lege ) 25 MG 21:35: times of tablet 11 daily. Medicin e Sevelamer 2019-03 Yes Take by [facility] Carbonate 0-27 mouth. [facility] 800 MG TABS 21:35: of 11 Medicin e amlodipine 2019-03 Yes 10mg Take 10 mg [facility] (NORVASC) 0-27 by mouth Colleg e 10 MG 21:35: daily. of tablet 11 Medicin e Spironolact 2019-03 Yes Take by [facility] one 25 0-27 mouth. [facility] MG/5ML SUSP 21:35: of 11 Medicin e carvedilol 2019-03 Yes 12.5mg Take 12.5 [facility] (COREG) 0-27 mg by [facility] 12.5 MG 21:35: mouth 2 of tablet 11 times Medicin daily e (with meals). gabapentin 2019-03 Yes 300mg Take 300 [facility] (NEURONTIN) 0-27 mg by [facility] 300 MG 21:35: mouth 3 of capsule 11 times Medicin daily. e ASPIRIN 81 2019-03 Yes Take by Alexander darnell OR 0-27 mouth. [facility] 21:35: of 11 Medicin e SENNA CO 2019-03 Yes by Ton 0-27 COMBINATIO [facility] 21:35: N route. of 11 Medicin e furosemide 2019-03 Yes 40mg Take 40 mg [facility] (LASIX) 40 0-27 by mouth Colle [facility] MG tablet 21:35: daily. of 11 Medicin e hydrALAZINE 2019-03 Yes 25mg Take 25 mg [facility] (APRESOLINE 0-27 by mouth 3 Co [facility]lege ) 25 MG 21:35: times of tablet 11 daily. Medicin e Sevelamer 2019-03 Yes Take by [facility] Carbonate 0-27 mouth. [facility] 800 MG TABS 21:35: of 11 Medicin e amlodipine 2019-03 Yes 10mg Take 10 mg [facility] (NORVASC) 0-27 by mouth Colleg e 10 MG 21:35: daily. of tablet 11 Medicin e Spironolact 2019-03 Yes Take by [facility] one 25 0-27 mouth. College MG/5ML SUSP 21:35: of 11 Medicin e carvedilol 2019-1 Yes 12.5mg Take 12.5 [facility] (COREG) 0-27 mg by College 12.5 MG 21:35: mouth 2 of tablet 11 times Medicin daily e (with meals). gabapentin 2019- Yes 300mg Take 300 [facility] (NEURONTIN) 0-27 mg by [facility] 300 MG 21:35: mouth 3 of capsule 11 times Medicin daily. e ASPIRIN 81 2019- Yes Take by Alexander darnell OR 0-27 mouth. [facility] 21:35: of 11 Medicin e amoxicillin 2019-1 2020- No 1{tbl} Take 1 Tab [facility] -clavulanat 0-27 10-27 by mouth 3 C [facility]lege e 20:31: 00:00 times of (AUGMENTIN) 05 :00 daily. Medici n 500-125 MG e per tablet SENNA CO 2020-0 Yes by Ton 9 COMBINATIO [facility] 19:13: N route. of 16 Medicin e furosemide 2020-0 Yes 40mg Take 40 mg [facility] (LASIX) 40 12-04 by mouth Colle [facility] MG tablet 19:13: daily. of 16 Medicin e hydrALAZINE 2020-0 Yes 25mg Take 25 mg [facility] (APRESOLINE 12-04 by mouth 3 Co llege ) 25 MG 19:13: times of tablet 16 daily. Medicin e Sevelamer 2020-0 Yes Take by [facility] Carbonate 930 mouth. [facility] 800 MG TABS 19:13: of 16 Medicin e amlodipine 2020-0 Yes 10mg Take 10 mg [facility] (NORVASC) 9-30 by mouth Colleg e 10 MG 19:13: daily. of tablet 16 Medicin e amoxicillin 2020-0 Yes 1{tbl} Take 1 Tab [facility] -clavulanat 9-30 by mouth 3 Co [facility]lege e 19:13: times of (AUGMENTIN) 16 daily. Medici n 500-125 MG e per tablet Spironolact 2020-0 Yes Take by [facility] one 25 9-30 mouth. [facility] MG/5ML SUSP 19:13: of 16 Medicin e carvedilol 2020-0 Yes 12.5mg Take 12.5 [facility] (COREG) 9-30 mg by [facility] 12.5 MG 19:13: mouth 2 of tablet 16 times Medicin daily e (with meals). gabapentin 2020-0 Yes 300mg Take 300 [facility] (NEURONTIN) 9-30 mg by [facility] 300 MG 19:13: mouth 3 of capsule 16 times Medicin daily. e ASPIRIN 81 2020-0 Yes Take by Alexander darnell OR 30 mouth. [facility] 19:13: of 16 Medicin e SENNA CO 2020-0 Yes by [facility] 10-01 [facility] 19:33: N route. of 32 Medicin e furosemide 2020-0 Yes 40mg Take 40 mg [facility] (LASIX) 40 - by mouth Colle ge MG tablet 19:33: daily. of 32 Medicin e hydrALAZINE 2020-0 Yes 25mg Take 25 mg [facility] (APRESOLINE - by mouth 3 Co [facility]lege ) 25 MG 19:33: times of tablet 32 daily. Medicin e Sevelamer 2020-0 Yes Take by Alexanderl or Carbonate 10-01 mouth. [facility] 800 MG TABS 19:33: of 32 Medicin e amlodipine 2020-0 Yes 10mg Take 10 mg [facility] (NORVASC) 10-01 by mouth Colleg e 10 MG 19:33: daily. of tablet 32 Medicin e amoxicillin 2020-0 Yes 1{tbl} Take 1 Tab [facility] -clavulanat - by mouth 3 Co [facility]lege e 19:33: times of (AUGMENTIN) 32 daily. Medici n 500-125 MG e per tablet Spironolact 2020-0 Yes Take by ylor one 25 10-01 mouth. [facility] MG/5ML SUSP 19:33: of 32 Medicin e carvedilol 2020-0 Yes 12.5mg Take 12.5 [facility] (COREG) 7-28 mg by [facility] 12.5 MG 19:33: mouth 2 of tablet 32 times Medicin daily e (with meals). gabapentin 2020-0 Yes 300mg Take 300 [facility] (NEURONTIN) 7-28 mg by [facility] 300 MG 19:33: mouth 3 of capsule 32 times Medicin daily. e ASPIRIN 81 2020-0 Yes Take by Alexander darnell OR 10-01 mouth. [facility] 19:33: of 32 Medicin e SENNA CO 2020-0 Yes by [facility] 6-30 [facility] 19:37: N route. of 20 Medicin e furosemide 2020-0 Yes 40mg Take 40 mg [facility] (LASIX) 40 6-30 by mouth Colle ge MG tablet 19:37: daily. of 20 Medicin e hydrALAZINE 2020-0 Yes 25mg Take 25 mg [facility] (APRESOLINE 6-30 by mouth 3 Co [facility]lege ) 25 MG 19:37: times of tablet 20 daily. Medicin e Sevelamer 2020-0 Yes Take by [facility] Carbonate 6-30 mouth. [facility] 800 MG TABS 19:37: of 20 Medicin [...] by [facility] one 25 6-30 mouth. [facility] MG/5ML SUSP 19:37: of 20 Medicin e carvedilol 2020-0 Yes 12.5mg Take 12.5 [facility] (COREG) 6-30 mg by [facility] 12.5 MG 19:37: mouth 2 of tablet 20 times Medicin daily e (with meals). gabapentin 2020-0 Yes 300mg Take 300 [facility] (NEURONTIN) 6-30 mg by [facility] 300 MG 19:37: mouth 3 of capsule 20 times Medicin daily. e ASPIRIN 81 2020-0 Yes Take by Alexander darnell OR 6-30 mouth. [facility] 19:37: of 20 Medicin e SENNA CO 2020-0 Yes by [facility] 6-30 [facility] 19:37: N route. of 20 Medicin e furosemide 2020-0 Yes 40mg Take 40 mg [facility] (LASIX) 40 6-30 by mouth Colle ge MG tablet 19:37: daily. of 20 Medicin e hydrALAZINE 2020-0 Yes 25mg Take 25 mg [facility] (APRESOLINE 6-30 by mouth 3 Co [facility]lege ) 25 MG 19:37: times of tablet 20 daily. Medicin e Sevelamer 2020-0 Yes Take by [facility] Carbonate 6-30 mouth. [facility] 800 MG TABS 19:37: of 20 Medicin [...] by [facility] one 25 6-30 mouth. [facility] MG/5ML SUSP 19:37: of 20 Medicin e carvedilol 2020-0 Yes 12.5mg Take 12.5 [facility] (COREG) 6-30 mg by [facility] 12.5 MG 19:37: mouth 2 of tablet 20 times Medicin daily e (with meals). gabapentin 2020-0 Yes 300mg Take 300 [facility] (NEURONTIN) 6-30 mg by [facility] 300 MG 19:37: mouth 3 of capsule 20 times Medicin daily. e ASPIRIN 81 2020-0 Yes Take by Alexander darnell OR 6-30 mouth. [facility] 19:37: of 20 Medicin e mupirocin 2020-0 Yes Apply 1-2 Alexander darnell (BACTROBAN) 6-30 grams to Alexia ege 2 % 00:00: affected of ointment 00 area Medicin daily. e mupirocin 2020-0 Yes Apply 1-2 Alexander darnell (BACTROBAN) 6-30 grams to Alexia ege 2 % 00:00: affected of ointment 00 area Medicin daily. e mupirocin 2020-0 2020- No Apply 1-2 [facility] (BACTROBAN) 6-30 10-27 grams to Col lege 2 % 00:00: 00:00 affected of ointment 00 :00 area Medicin daily. e SENNA CO 2020-0 Yes by [facility] 6-16 COMBINATIO [facility] 18:05: N route. of 34 Medicin e [...] Take by [facility] Carbonate 6-16 mouth. [facility] 800 MG TABS 18:05: of 34 Medicin e amlodipine 2020-0 Yes 10mg Take 10 mg [facility] (NORVASC) 6-16 by mouth Colleg e 10 MG 18:05: daily. of tablet 34 Medicin e amoxicillin 2020-0 Yes 1{tbl} Take 1 Tab [facility] -clavulanat 6-16 by mouth 3 Co [facility]lege e 18:05: times of (AUGMENTIN) 34 daily. Medici n 500-125 MG e per tablet Spironolact 2020-0 Yes Take by [facility] one 25 6-16 mouth. [facility] MG/5ML SUSP 18:05: of 34 Medicin e carvedilol 2020-0 Yes 12.5mg Take 12.5 [facility] (COREG) 6-16 mg by [facility] 12.5 MG 18:05: mouth 2 of tablet 34 times Medicin daily e (with meals). gabapentin 2020-0 Yes 300mg Take 300 [facility] (NEURONTIN) 6-16 mg by [facility] 300 MG 18:05: mouth 3 of capsule 34 times Medicin daily. e ASPIRIN 81 2019-0 Yes Take by Alexander darnell OR 6-16 mouth. [facility] 18:05: of 34 Medicin e mupirocin 2019-0 Yes Apply 1-2 Alexander darnell (BACTROBAN) 6-04 grams to Alexia ege [...] e SENNA CO 2020-0 Yes by [facility] 6 COMBINATIO [facility] 18:33: N route. of 37 Medicin e furosemide 2019-0 Yes 40mg Take 40 mg [facility] (LASIX) 40 6-02 by mouth Colle [facility] MG tablet 18:33: daily. of 37 Medicin e hydrALAZINE 2020-0 Yes 25mg Take 25 mg [facility] (APRESOLINE 6-02 by mouth 3 Co llege ) 25 MG 18:33: times of tablet 37 daily. Medicin e Sevelamer 2020-0 Yes Take by [facility] Carbonate 6-02 mouth. College 800 MG TABS 18:33: of 37 Medicin e amlodipine 2020-0 Yes 10mg Take 10 mg [facility] (NORVASC) 6-02 by mouth [facility] e 10 MG 18:33: [...] Take 12.5 [facility] (COREG) 6-02 mg by [facility] 12.5 MG 18:33: mouth 2 of tablet 37 times Medicin daily e (with meals). gabapentin 2020-0 Yes 300mg Take 300 [facility] (NEURONTIN) 6-02 mg by [facility] 300 MG 18:33: mouth 3 of capsule 37 times Medicin daily. e ASPIRIN 81 2020-0 Yes Take by Alexander darnell OR 6-02 mouth. [facility] 18:33: of 37 Medicin e SENNA CO 2020-0 Yes by Ton 5-19 COMBINATIO [facility] 19:50: N route. of 17 Medicin e furosemide 2020-0 Yes 40mg Take 40 mg [facility] (LASIX) 40 5-19 by mouth Colle ge MG tablet 19:50: daily. of 17 Medicin e hydrALAZINE 2020-0 Yes 25mg Take 25 mg [facility] (APRESOLINE 5-19 by mouth 3 Co [facility]lege ) 25 MG 19:50: times of tablet 17 daily. Medicin e Sevelamer 2020-0 Yes Take by [facility] Carbonate 5-19 mouth. [facility] 800 MG TABS 19:50: of 17 Medicin e amlodipine 2020-0 Yes 10mg Take 10 mg [facility] (NORVASC) 5-19 by mouth Colleg e 10 MG 19:50: daily. of tablet 17 Medicin e amoxicillin 2019- Yes 1{tbl} Take 1 Tab [facility] -clavulanat 5-19 by mouth 3 [facility]lege e 19:50: times of (AUGMENTIN) 17 daily. Medici n 500-125 MG e per tablet Spironolact 2019- Yes Take by [facility] one 25 5-19 mouth. College MG/5ML SUSP 19:50: of 17 Medicin e carvedilol Yes 12.5mg Take 12.5 [facility] (COREG) 5-19 mg by [facility] 12.5 MG 19:50: mouth 2 of tablet 17 times Medicin daily e (with meals). gabapentin Yes 300mg Take 300 [facility] (NEURONTIN) 5-19 mg by [facility] 300 MG 19:50: mouth 3 of capsule 17 times Medicin daily. e ASPIRIN 81 Yes Take by Alexander darnell OR 5-19 mouth. College 19:50: of 17 Medicin e No known No [facility] medications [facility] Medicin e No known No [facility] medications [facility] Medicin e Vital Signs Vital Name Observation Time [...] WEIGHT 2019-11-05 93 kg 00:00:00 Systolic blood 2021-05-26 146 mm[Hg] [facility] pressure 21:05:00 of Medicine Diastolic blood 2021-05-26 75 mm[Hg] [facility] [employer] pressure 21:05:00 of Medicine Heart rate 2021-05-26 92 /min [facility] 21:05:00 of Medicine Body height 2021-05-26 185.4 cm [facility] 21:05:00 of Medicine Body weight 2021-05-26 86.637 kg [facility] 21:05:00 of Medicine BMI 2021-05-26 25.20 kg/m2 [facility] 21:05:00 of Medicine Systolic blood 2021-05-05 148 mm[Hg] [facility] Colleg e pressure 21:53:00 of Medicine Diastolic blood 2021-05-05 80 mm[Hg] [facility] Colle [facility] pressure 21:53:00 of Medicine Heart rate 2021-05-05 91 /min [facility] 21:53:00 of Medicine Body height 2021-05-05 185.4 cm [facility] 21:53:00 of Medicine Body weight 2021-05-05 86.637 kg [facility] 21:53:00 of Medicine BMI 2021-05-05 25.20 kg/m2 [facility] 21:53:00 of Medicine Systolic blood 2021-04-07 181 mm[Hg] did not take [facility] pressure 21:27:00 b/p meds today of Medicine Diastolic blood 2021-04-07 79 mm[Hg] did not take [facility] Colle [facility] pressure 21:27:00 b/p [facility] of Medicine Heart rate 2021-04-07 78 /min [facility] 21:27:00 of Medicine Body height 2021-04-07 185.4 cm [facility] 21:27:00 of Medicine Body weight 2021-04-07 86.637 kg [facility] 21:27:00 of Medicine BMI 2021-04-07 25.20 kg/m2 [facility] 21:27:00 of Medicine WEIGHT 2021-03-16 78 kg 08:09:00 WEIGHT 2021-03-13 78 kg 11:26:00 WEIGHT 2021-03-13 80 kg 08:10:00 WEIGHT 2021-03-11 80 kg 12:59:00 WEIGHT 2021-03-09 80 kg 16:45:00 WEIGHT 2021-03-06 81 kg 20:00:00 WEIGHT 2021-03-02 82 kg 12:45:00 WEIGHT 2021-03-02 84 kg 09:10:00 WEIGHT 2021-03-01 84 kg 15:45:00 WEIGHT 2021-02-27 84 kg 22:30:00 HEIGHT 2021-02-26 185.4 cm 22:02:00 WEIGHT 2021-02-26 87 kg 22:02:00 WEIGHT 2021-03-16 78 kg 08:09:00 WEIGHT 2021-03-13 78 kg 11:26:00 WEIGHT 2021-03-13 80 kg 08:10:00 WEIGHT 2021-03-11 80 kg 12:59:00 WEIGHT 2021-03-09 80 kg 16:45:00 WEIGHT 2021-03-06 81 kg 20:00:00 WEIGHT 2021-03-02 82 kg 12:45:00 WEIGHT 2021-03-02 84 kg 09:10:00 WEIGHT 2021-03-01 84 kg 15:45:00 WEIGHT 2021-02-27 84 kg 22:30:00 HEIGHT 2021-02-26 185.4 cm 22:02:00 WEIGHT 2021-02-26 87 kg 22:02:00 Systolic blood 2021-02-03 121 mm[facility]Hg[facility] of Medicine Diastolic blood 2021-02-03 69 mm[Hg] [facility] Colle ge pressure 19:23:00 of Medicine Heart rate 2021-02-03 91 /min [facility] 19:23:00 of Medicine Body height 2021-02-03 185.4 cm [facility] 19:23:00 of Medicine Body weight 2021-02-03 86.637 kg [facility] 19:23:00 of Medicine BMI 2021-02-03 25.20 kg/m2 [facility] 19:23:00 of Medicine Systolic blood 2021-01-20 165 mm[Hg] [facility] pressure 17:05:00 of Medicine Diastolic blood 2021-01-20 92 mm[Hg] [facility] pressure 17:05:00 of Medicine Heart rate 2021-01-20 75 /min [facility] 17:05:00 of Medicine Body height 2021-01-20 185.4 cm [facility] 17:05:00 of Medicine Body weight 2021-01-20 86.637 kg [facility] 17:05:00 of Medicine BMI 2021-01-20 25.20 kg/m2 [facility] 17:05:00 of Medicine Systolic blood 2020-12-23 161 mm[Hg] [facility] Colleg [facility] pressure 20:28:00 of Medicine Diastolic blood 2020-12-23 92 mm[Hg] [facility] pressure 20:28:00 of Medicine Heart rate 2020-12-23 89 /min [facility] 20:28:00 of Medicine Body height 2020-12-23 185.4 cm [facility] 20:28:00 of Medicine Body weight 2020-12-23 86.637 kg [facility] 20:28:00 of Medicine BMI 2020-12-23 25.20 kg/m2 [facility] 20:28:00 of Medicine Systolic blood 2020-11-25 147 mm[Hg] [facility] pressure 19:32:00 of Medicine Diastolic blood 2020-11-25 73 mm[Hg] [facility] Colle [facility] pressure 19:32:00 of Medicine Heart rate 2020-11-25 61 /min [facility] 19:32:00 of Medicine Respiratory rate 2020-11-25 14 /min [facility] 19:32:00 of Medicine Body height 2020-11-25 185.4 cm [facility] 19:32:00 of Medicine Body weight 2020-11-25 87 kg [facility] 19:32:00 of Medicine BMI 2020-11-25 25.30 kg/m2 [facility] 19:32:00 of Medicine Systolic blood 2020-10-28 154 mm[Hg] [facility] Colleg [facility] pressure 21:32:00 of Medicine Diastolic blood 2020-10-28 77 mm[Hg] [facility] ge pressure 21:32:00 of Medicine Heart rate 2020-10-28 61 /min [facility] 21:32:00 of Medicine Body height 2020-10-28 182.9 cm [facility] 21:32:00 of Medicine Body weight 2020-10-28 86.637 kg [facility] 21:32:00 of Medicine BMI 2020-10-28 25.90 kg/m2 [facility] 21:32:00 of Medicine Systolic blood 2020-10-14 151 mm[Hg] [facility] pressure 21:20:00 of Medicine Diastolic blood 2020-10-14 77 mm[Hg] [facility] pressure 21:20:00 of Medicine Heart rate 2020-10-14 60 /min [facility] 21:20:00 of Medicine Body height 2020-10-14 182.9 cm [facility] 21:20:00 of Medicine Body weight 2020-10-14 86.637 kg [facility] 21:20:00 of Medicine BMI 2020-10-14 25.90 kg/m2 [facility] 21:20:00 of Medicine WEIGHT 2020-10-03 75.6 [...] 18:23:00 Systolic blood 2020-08-19 141 mm[Hg] [facility] pressure 20:25:00 of Medicine Diastolic blood 2020-08-19 71 mm[Hg] [facility] pressure 20:25:00 of Medicine Heart rate 2020-08-19 62 /min [facility] 20:25:00 of Medicine Body height 2020-08-19 182.9 cm [facility] 20:25:00 of Medicine Body weight 2020-08-19 84.823 kg [facility] 20:25:00 of Medicine BMI 2020-08-19 25.36 kg/m2 [facility] 20:25:00 of Medicine Systolic blood 2020-08-05 184 mm[Hg] [facility] pressure 18:22:00 of Medicine Diastolic blood 2020-08-05 90 mm[Hg] [facility] pressure 18:22:00 of Medicine Heart rate 2020-08-05 63 /min [facility] 18:22:00 of Medicine Body height 2020-08-05 182.9 cm [facility] 18:22:00 of Medicine Body weight 2020-08-05 84.823 kg [facility] 18:22:00 of Medicine BMI 2020-08-05 25.36 kg/m2 [facility] 18:22:00 of Medicine Systolic blood 2020-07-22 207 mm[Hg] [facility] [employer] pressure 18:25:00 of Medicine Diastolic blood 2020-07-22 97 mm[Hg] [facility] pressure 18:25:00 of Medicine Heart rate 2020-07-22 61 /min [facility] 18:25:00 of Medicine Body height 2020-07-22 182.9 cm [facility] 18:25:00 of Medicine Body weight 2020-07-22 84.823 kg [facility] 18:25:00 of Medicine BMI 2020-07-22 25.36 kg/m2 [facility] 18:25:00 of Medicine Systolic blood 2020-06-24 103 mm[Hg] [facility] [employer] pressure 20:43:00 of Medicine Diastolic blood 2020-06-24 64 mm[Hg] [facility] pressure 20:43:00 of Medicine Heart rate 2020-06-24 95 /min [facility] 20:43:00 of Medicine Body height 2020-06-24 182.9 cm [facility] 20:43:00 of Medicine Body weight 2020-06-24 85 kg [facility] 20:43:00 of Medicine BMI 2020-06-24 25.41 kg/m2 [facility] 20:43:00 of Medicine WEIGHT 2020-06-13 81.2 [...] kg 14:51:00 Systolic blood 2020-05-20 144 mm[Hg] [facility] pressure 21:14:00 of Medicine Diastolic blood 2020-05-20 81 mm[Hg] [employer] pressure 21:14:00 of Medicine Heart rate 2020-05-20 61 /min [facility] 21:14:00 of Medicine Body height 2020-05-20 182.9 cm [facility] 21:14:00 of Medicine Body weight 2020-05-20 96.616 kg [facility] 21:14:00 of Medicine BMI 2020-05-20 28.89 kg/m2 [facility] 21:14:00 of Medicine Systolic blood 2020-05-20 144 mm[Hg] [employer] pressure 21:14:00 of Medicine Diastolic blood 2020-05-20 81 mm[Hg] [facility] pressure 21:14:00 of Medicine Heart rate 2020-05-20 61 /min [facility] 21:14:00 of Medicine Body height 2020-05-20 182.9 cm [facility] 21:14:00 of Medicine Body weight 2020-05-20 96.616 kg [facility] 21:14:00 of Medicine BMI 2020-05-20 28.89 kg/m2 [facility] 21:14:00 of Medicine Systolic blood 2020-05-13 105 mm[Hg] [employer] pressure 22:27:00 of Medicine Diastolic blood 2020-05-13 65 mm[Hg] [facility] pressure 22:27:00 of Medicine Heart rate 2020-05-13 58 /min [facility] 22:27:00 of Medicine Body height 2020-05-13 182.9 cm [facility] 22:27:00 of Medicine Body weight 2020-05-13 96.616 kg [facility] 22:27:00 of Medicine BMI 2020-05-13 28.89 kg/m2 [facility] 22:27:00 of Medicine Systolic blood 2020-05-13 105 mm[Hg] [employer] pressure 22:27:00 of Medicine Diastolic blood 2020-05-13 65 mm[Hg] [employer] pressure 22:27:00 of Medicine Heart rate 2020-05-13 58 /min [facility] 22:27:00 of Medicine Body height 2020-05-13 182.9 cm [facility] 22:27:00 of Medicine Body weight 2020-05-13 96.616 kg [facility] 22:27:00 of Medicine BMI 2020-05-13 28.89 kg/m2 [facility] 22:27:00 of Medicine Systolic blood 2020-04-29 170 mm[Hg] [facility] pressure 21:36:00 of Medicine Diastolic blood 2020-04-29 94 mm[Hg] [employer] pressure 21:36:00 of Medicine Heart rate 2020-04-29 62 /min [facility] 21:36:00 of Medicine Body height 2020-04-29 182.9 cm [facility] 21:36:00 of Medicine Body weight 2020-04-29 96.616 kg [facility] 21:36:00 of Medicine BMI 2020-04-29 28.89 kg/m2 [facility] 21:36:00 of Medicine Systolic blood 2020-04-29 170 mm[Hg] [employer] pressure 21:36:00 of Medicine Diastolic blood 2020-04-29 94 mm[Hg] [employer] pressure 21:36:00 of Medicine Heart rate 2020-04-29 62 /min [facility] 21:36:00 of Medicine Body height 2020-04-29 182.9 cm [facility] 21:36:00 of Medicine Body weight 2020-04-29 96.616 kg [facility] 21:36:00 of Medicine BMI 2020-04-29 28.89 kg/m2 [facility] 21:36:00 of Medicine Systolic blood 2020-04-08 163 mm[Hg] [facility] pressure 21:53:00 of Medicine Diastolic blood 2020-04-08 76 mm[Hg] [employer] pressure 21:53:00 of Medicine Heart rate 2020-04-08 65 /min [facility] 21:53:00 of Medicine Body height 2020-04-08 182.9 cm [facility] 21:53:00 of Medicine Body weight 2020-04-08 96.616 kg unable to stand [facility] ge 21:53:00 of Medicine BMI 2020-04-08 28.89 kg/m2 [facility] 21:53:00 of Medicine Systolic blood 2020-04-08 163 mm[Hg] [facility] 21:53:00 of Medicine Diastolic blood 2020-04-08 76 mm[Hg] [facility] ge pressure 21:53:00 of Medicine Heart rate 2020-04-08 65 /min [facility] 21:53:00 of Medicine Body height 2020-04-08 182.9 cm [facility] 21:53:00 of Medicine Body weight 2020-04-08 96.616 kg unable to stand [facility] ge 21:53:00 of Medicine BMI 2020-04-08 28.89 kg/m2 [facility] 21:53:00 of Medicine WEIGHT 2020-03-26 79.3 [...] kg 20:50:00 Systolic blood 2020-03-11 144 mm[Hg] [facility] pressure 21:44:00 of Medicine Diastolic blood 2020-03-11 86 mm[Hg] [employer] pressure 21:44:00 of Medicine Heart rate 2020-03-11 74 /min [facility] 21:44:00 of Medicine Body height 2020-03-11 182.9 cm [facility] 21:44:00 of Medicine Body weight 2020-03-11 96.616 kg unable to stand [employer] 21:44:00 of Medicine BMI 2020-03-11 28.89 kg/m2 [facility] 21:44:00 of Medicine Systolic blood 2020-03-11 144 mm[Hg] [employer] pressure 21:44:00 of Medicine Diastolic blood 2020-03-11 86 mm[Hg] [facility] pressure 21:44:00 of Medicine Heart rate 2020-03-11 74 /min [facility] 21:44:00 of Medicine Body height 2020-03-11 182.9 cm [facility] 21:44:00 of Medicine Body weight 2020-03-11 96.616 kg unable to stand [facility] 21:44:00 of Medicine BMI 2020-03-11 28.89 kg/m2 [facility] 21:44:00 of Medicine WEIGHT 2020-01-21 91.4 [...] of Medicine Heart rate 2020-01-01 67 /min [facility] 21:34:00 of Medicine Body weight 2020-01-01 96.616 kg [facility] 21:34:00 of Medicine BMI 2020-01-01 32.39 kg/m2 [facility] 21:34:00 of Medicine Systolic blood 2020-01-01 154 mm[Hg] [employer] pressure 21:34:00 of Medicine Diastolic blood 2020-01-01 79 mm[Hg] [employer] pressure 21:34:00 of Medicine Heart rate 2020-01-01 67 /min [facility] 21:34:00 of Medicine Body weight 2020-01-01 96.616 kg [facility] 21:34:00 of Medicine BMI 2020-01-01 32.39 kg/m2 [facility] 21:34:00 of Medicine Systolic blood 2020-01-01 154 mm[Hg] [facility] pressure 20:24:00 of Medicine Diastolic blood 2020-01-01 79 mm[Hg] [facility] pressure 20:24:00 of Medicine Heart rate 2020-01-01 67 /min [facility] 20:24:00 of Medicine Body height 2020-01-01 172.7 cm [facility] 20:24:00 of Medicine Body weight 2020-01-01 97 kg [facility] 20:24:00 of Medicine BMI 2020-01-01 32.52 kg/m2 [facility] 20:24:00 of Medicine Systolic blood 2020-01-01 154 mm[Hg] [facility] pressure 20:24:00 of Medicine Diastolic blood 2020-01-01 79 mm[Hg] [facility] pressure 20:24:00 of Medicine Heart rate 2020-01-01 67 /min [facility] 20:24:00 of Medicine Body height 2020-01-01 172.7 cm [facility] 20:24:00 of Medicine Body weight 2020-01-01 97 kg [facility] 20:24:00 of Medicine BMI 2020-01-01 32.52 kg/m2 [facility] 20:24:00 of Medicine WEIGHT 2019-12-21 98 kg 15:30:00 WEIGHT 2019-12-21 99.5 kg 12:30:00 WEIGHT 2019-12-19 99.5 kg 13:30:00 WEIGHT 2019-12-17 99.5 kg 11:26:00 WEIGHT 2019-12-14 101.4 kg 16:45:00 HEIGHT 2019-12-05 185.4 cm 20:42:00 HEIGHT 2019-12-05 185.4 cm 00:00:00 WEIGHT 2019-12-05 101.4 kg 00:00:00 Systolic blood 2019-12-05 127 mm[Hg] [employer] pressure 19:12:00 of Medicine Diastolic blood 2019-12-05 77 mm[Hg] [facility] pressure 19:12:00 of Medicine Heart rate 2019-12-05 67 /min [facility] 19:12:00 of Medicine Body height 2019-12-05 172.7 cm [facility] 19:12:00 of Medicine Body weight 2019-12-05 104.327 kg [facility] 19:12:00 of Medicine BMI 2019-12-05 34.97 kg/m2 [facility] 19:12:00 of Medicine Systolic blood 2019-12-05 127 mm[Hg] [facility] pressure 19:12:00 of Medicine Diastolic blood 2019-12-05 77 mm[Hg] [employer] pressure 19:12:00 of Medicine Heart rate 2019-12-05 67 /min [facility] 19:12:00 of Medicine Body height 2019-12-05 172.7 cm [facility] 19:12:00 of Medicine Body weight 2019-12-05 104.327 kg [facility] 19:12:00 of Medicine BMI 2019-12-05 34.97 kg/m2 [facility] 19:12:00 of Medicine HEIGHT 2019-11-05 185.4 cm 00:00:00 WEIGHT 2019-11-05 93 kg 00:00:00 HEIGHT 2019-10-10 185.4 cm 00:00:00 WEIGHT 2019-10-10 110 kg 00:00:00 Systolic blood 2019-10-02 202 mm[Hg] [facility] pressure 19:32:00 of Medicine Diastolic blood 2019-10-02 110 mm[Hg] [employer] pressure 19:32:00 of Medicine Heart rate 2019-10-02 67 /min [facility] 19:32:00 of Medicine Body height 2019-10-02 172.7 cm [facility] 19:32:00 of Medicine Body weight 2019-10-02 104.327 kg [facility] 19:32:00 of Medicine BMI 2019-10-02 34.97 kg/m2 [facility] 19:32:00 of Medicine Systolic blood 2019-10-02 202 mm[Hg] [employer] pressure 19:32:00 of Medicine Diastolic blood 2019-10-02 110 mm[Hg] [facility] pressure 19:32:00 of Medicine Heart rate 2019-10-02 67 /min [facility] 19:32:00 of Medicine Body height 2019-10-02 172.7 cm [facility] 19:32:00 of Medicine Body weight 2019-10-02 104.327 kg [facility] 19:32:00 of Medicine BMI 2019-10-02 34.97 kg/m2 [facility] 19:32:00 of Medicine Systolic blood 2019-09-04 165 mm[Hg] [facility] pressure 19:36:00 of Medicine Diastolic blood 2019-09-04 91 mm[Hg] [facility] pressure 19:36:00 of Medicine Heart rate 2019-09-04 70 /min [facility] 19:36:00 of Medicine Body height 2019-09-04 172.7 cm [facility] 19:36:00 of Medicine Body weight 2019-09-04 104.327 kg [facility] 19:36:00 of Medicine BMI 2019-09-04 34.97 kg/m2 [facility] 19:36:00 of Medicine Systolic blood 2019-09-04 165 mm[Hg] [employer] pressure 19:36:00 of Medicine Diastolic blood 2019-09-04 91 mm[Hg] [facility] pressure 19:36:00 of Medicine Heart rate 2019-09-04 70 /min [facility] 19:36:00 of Medicine Body height 2019-09-04 172.7 cm [facility] 19:36:00 of Medicine Body weight 2019-09-04 104.327 kg [facility] 19:36:00 of Medicine BMI 2019-09-04 34.97 kg/m2 [facility] 19:36:00 of Medicine Systolic blood 2019-09-04 165 mm[Hg] [facility] [employer] pressure 19:29:00 of Medicine Diastolic blood 2019-09-04 91 mm[Hg] [facility] pressure 19:29:00 of Medicine Heart rate 2019-09-04 70 /min [facility] 19:29:00 of Medicine Body height 2019-09-04 172.7 cm [facility] 19:29:00 of Medicine Body weight 2019-09-04 104.327 kg [facility] 19:29:00 of Medicine BMI 2019-09-04 34.97 kg/m2 [facility] 19:29:00 of Medicine Systolic blood 2019-09-04 165 mm[Hg] [facility] [employer] pressure 19:29:00 of Medicine Diastolic blood 2019-09-04 91 mm[Hg] [facility] pressure 19:29:00 of Medicine Heart rate 2019-09-04 70 /min [facility] 19:29:00 of Medicine Body height 2019-09-04 172.7 cm [facility] 19:29:00 of Medicine Body weight 2019-09-04 104.327 kg [facility] 19:29:00 of Medicine BMI 2019-09-04 34.97 kg/m2 [facility] 19:29:00 of Medicine Systolic blood 2019-08-21 137 mm[Hg] [facility] [employer] pressure 18:04:00 of Medicine Diastolic blood 2019-08-21 77 mm[Hg] [facility] pressure 18:04:00 of Medicine Heart rate 2019-08-21 72 /min [facility] 18:04:00 of Medicine Body height 2019-08-21 172.7 cm [facility] 18:04:00 of Medicine Body weight 2019-08-21 104.327 kg [facility] 18:04:00 of Medicine BMI 2019-08-21 34.97 kg/m2 [facility] 18:04:00 of Medicine Systolic blood 2019-08-21 137 mm[Hg] [facility] pressure 18:04:00 of Medicine Diastolic blood 2019-08-21 77 mm[Hg] [facility] pressure 18:04:00 of Medicine Heart rate 2019-08-21 72 /min [facility] 18:04:00 of Medicine Body height 2019-08-21 172.7 cm [facility] 18:04:00 of Medicine Body weight 2019-08-21 104.327 kg [facility] 18:04:00 of Medicine BMI 2019-08-21 34.97 kg/m2 [facility] 18:04:00 of Medicine Systolic blood 2019-08-07 148 mm[Hg] [employer] pressure 18:34:00 of Medicine Diastolic blood 2019-08-07 77 mm[Hg] [facility] pressure 18:34:00 of Medicine Heart rate 2019-08-07 65 /min [facility] 18:34:00 of Medicine Body height 2019-08-07 172.7 cm [facility] 18:34:00 of Medicine Body weight 2019-08-07 104.327 kg [facility] 18:34:00 of Medicine BMI 2019-08-07 34.97 kg/m2 [facility] 18:34:00 of Medicine Systolic blood 2019-08-07 148 mm[Hg] [employer] pressure 18:34:00 of Medicine Diastolic blood 2019-08-07 77 mm[Hg] [facility] pressure 18:34:00 of Medicine Heart rate 2019-08-07 65 /min [facility] 18:34:00 of Medicine Body height 2019-08-07 172.7 cm [facility] 18:34:00 of Medicine Body weight 2019-08-07 104.327 kg [facility] 18:34:00 of Medicine BMI 2019-08-07 34.97 kg/m2 [facility] 18:34:00 of Medicine Systolic blood 2019-07-24 146 mm[Hg] [facility] pressure 18:50:00 of Medicine Diastolic blood 2019-07-24 80 mm[Hg] [employer] pressure 18:50:00 of Medicine Heart rate 2019-07-24 68 /min [facility] 18:50:00 of Medicine Body height 2019-07-24 172.7 cm [facility] 18:50:00 of Medicine Body weight 2019-07-24 104.327 kg [facility] 18:50:00 of Medicine BMI 2019-07-24 34.97 kg/m2 [facility] 18:50:00 of Medicine Systolic blood 2019-07-24 146 mm[Hg] [employer] pressure 18:50:00 of Medicine Diastolic blood 2019-07-24 80 mm[Hg] [employer] pressure 18:50:00 of Medicine Heart rate 2019-07-24 68 /min [facility] 18:50:00 of Medicine Body height 2019-07-24 172.7 cm [facility] 18:50:00 of Medicine Body weight 2019-07-24 104.327 kg [facility] 18:50:00 of Medicine BMI 2019-07-24 34.97 kg/m2 [facility] 18:50:00 of Medicine Systolic blood 2019-07-17 130 mm[Hg] [employer] pressure 16:32:00 of Medicine Diastolic blood 2019-07-17 51 mm[Hg] [facility] pressure 16:32:00 of Medicine Heart rate 2019-07-17 68 /min [facility] 16:32:00 of Medicine Body height 2019-07-17 172.7 cm [facility] 16:32:00 of Medicine Body weight 2019-07-17 104.327 kg [facility] 16:32:00 of Medicine BMI 2019-07-17 34.97 kg/m2 [facility] 16:32:00 of Medicine Systolic blood 2019-07-17 130 mm[Hg] [employer] pressure 16:32:00 of Medicine Diastolic blood 2019-07-17 51 mm[Hg] [facility] pressure 16:32:00 of Medicine Heart rate 2019-07-17 68 /min [facility] 16:32:00 of Medicine Body height 2019-07-17 172.7 cm [facility] 16:32:00 of Medicine Body weight 2019-07-17 104.327 kg [facility] 16:32:00 of Medicine BMI 2019-07-17 34.97 kg/m2 [facility] 16:32:00 of Medicine Systolic blood 2019-07-10 126 mm[Hg] [employer] pressure 20:16:00 of Medicine Diastolic blood 2019-07-10 72 mm[Hg] [facility] pressure 20:16:00 of Medicine Heart rate 2019-07-10 86 /min [facility] 20:16:00 of Medicine Body height 2019-07-10 172.7 cm [facility] 20:16:00 of Medicine Body weight 2019-07-10 104.327 kg [facility] 20:16:00 of Medicine BMI 2019-07-10 34.97 kg/m2 [facility] 20:16:00 of Medicine Systolic blood 2019-07-10 126 mm[Hg] [facility] pressure 20:16:00 of Medicine Diastolic blood 2019-07-10 72 mm[Hg] [facility] ge pressure 20:16:00 of Medicine Heart rate 2019-07-10 86 /min [facility] 20:16:00 of Medicine Body height 2019-07-10 172.7 cm [facility] 20:16:00 of Medicine Body weight 2019-07-10 104.327 kg [facility] 20:16:00 of Medicine BMI 2019-07-10 34.97 kg/m2 [facility] 20:16:00 of Medicine Procedures Procedure Date / Time Performed Performing Clinician Sour rohit [id number] 2020-04-12 00:00:00 ENCPL [id number] 2020-04-12 00:00:00 ENCPL [id number] 2020-04-12 00:00:00 ENCPL [id number] 2020-04-12 00:00:00 ENCPL 76324E1 2020-04-12 00:00:00 ENCPL 83991U2 2020-04-12 00:00:00 ENCPL 33672O7 2020-04-12 00:00:00 ENCPL [id number] 2020-04-12 00:00:00 ENCPL 99579C3 2020-04-12 00:00:00 ENCPL [id number] 2020-04-12 00:00:00 ENCPL [id number] 2020-03-28 00:00:00 ENCPL 9V3Y43C 2020-03-28 00:00:00 ENCPL [id number] 2020-03-28 00:00:00 ENCPL 7J8E65V 2020-03-28 00:00:00 ENCPL 9N3C71X 2020-03-28 00:00:00 ENCPL 1Q5K24B 2020-03-28 00:00:00 ENCPL 4V0I69W 2020-03-28 00:00:00 ENCPL 1R4L33A 2020-03-28 00:00:00 ENCPL 2E1K00Q 2020-03-28 00:00:00 ENCPL 4E7V39D 2020-03-28 00:00:00 ENCPL 2Y7D26X 2020-03-28 00:00:00 ENCPL 9A4P96X 2020-03-28 00:00:00 ENCPL 0R8N91E 2020-03-28 00:00:00 ENCPL 7D8W25L 2020-03-28 00:00:00 ENCPL 8O5H74W 2020-03-28 00:00:00 ENCPL 9Q5E40C 2020-03-28 00:00:00 ENCPL 6E8V29F 2020-03-28 00:00:00 ENCPL 4E5N43T 2020-03-28 00:00:00 ENCPL 2U6N90C 2020-03-28 00:00:00 ENCPL 0D8S38C 2020-03-28 00:00:00 ENCPL 8J9N85L 2020-03-28 00:00:00 ENCPL [id number] 2020-03-28 00:00:00 ENCPL 8U8X90V 2020-03-28 00:00:00 ENCPL 0A2K94C 2020-03-28 00:00:00 ENCPL 8Q3B52B 2020-03-28 00:00:00 ENCPL 0W7S86Q 2020-03-28 00:00:00 ENCPL 0U8I19Q 2020-03-28 00:00:00 ENCPL 3T6Y08R 2020-03-28 00:00:00 ENCPL 6W3P42F 2019-06-29 00:00:00 ENCPL 9O6H28A 2019-06-29 00:00:00 ENCPL 5O7M33C 2019-06-29 00:00:00 ENCPL 6Y3J21G 2019-06-29 00:00:00 ENCPL [id number] 2019-06-29 00:00:00 ENCPL 4U9N39J 2019-06-29 00:00:00 ENCPL 9M4S26A 2019-06-29 00:00:00 ENCPL Plan of Care Planned Activity Planned Date Details Comments Source Future Scheduled 2021-06-01 ID DEBRIDEMENT OPEN Ordered: [facility] Test 07:15:12 WOUND 20 SQ CM< [code = 06/01/2021 of M edicine 56174] Future Scheduled 2021-06-01 Screening for malignant [facility] Test 07:06:46 neoplasm of colon of Medicin e (procedure) [code = 770787037] Future Scheduled 2021-06-01 COVID-19 Vaccine (1) [facility] Test 07:06:46 [code = COVID-19 of Medicine Vaccine (1)] Future Scheduled 2021-06-01 Pneumococcal Combined [facility] Test 07:06:46 (1 of 2 - PPSV23) [code of M edicine = Pneumococcal Combined (1 of 2 - PPSV23)] Future Scheduled 2021-06-01 TETANUS SHOT (ADULT) [facility] Test 07:06:46 [code = TETANUS SHOT of Medi cine (ADULT)] Future Scheduled 2021-06-01 Diabetic foot [facility] Test 07:06:46 examination of Medicine (regime/therapy) [code = 555463914] Future Scheduled 2021-06-01 ANNUAL DIABETIC [facility] Test 07:06:46 RETINOPATHY SCREENING of Med icine [code = ANNUAL DIABETIC RETINOPATHY SCREENING] Future Scheduled 2021-06-01 Hepatitis C screening [facility] Test 07:06:46 (procedure) [code = of Medic ine [id number]] Future Scheduled 2021-06-01 Human immunodeficiency [facility] Test 07:06:46 virus screening of Medicine (procedure) [code = 400292073] Future Scheduled 2021-06-01 ZOSTER VACCINE (1 of 2) [facility] Test 07:06:46 [code = ZOSTER VACCINE of Me dicine (1 of 2)] Future Scheduled 2021-06-01 MEDICARE AWV (Initial) [facility] Test 07:06:46 [code = MEDICARE AWV of Medi cine (Initial)] Future Scheduled 2021-06-01 FLU VACCINE > 6 MONTHS [facility] Test 07:06:46 [code = FLU VACCINE > 6 of edicine MONTHS] Future Scheduled 2021-06-01 BMI FOLLOW UP PLAN [facility] Test 07:06:46 [code = BMI FOLLOW UP of Med icine PLAN] Future Scheduled 2021-05-26 WOUND CARE INSTRUCTIONS Ordered: [facility] Test 16:55:26 [code = 96853] 05/26/2021 of Medicine Future Scheduled 2021-05-08 ID DEBRIDEMENT OPEN Ordered: [facility] Test 10:32:08 WOUND 20 SQ CM< [code = 05/08/2021 of M edicine 45568] Future Scheduled 2021-05-08 ID DEBRIDEMENT OPEN Ordered: [facility] 10:32:08 WOUND EA ADDL 20 SQ CM 05/08/2021 of Me dicine [code = 55056] Future Scheduled 2021-05-08 Screening for malignant [facility] Test 10:19:03 neoplasm of colon of Medicin e (procedure) [code = [id number]] Future Scheduled 2021-05-08 COVID-19 Vaccine (1) [facility] Test 10:19:03 [code = COVID-19 of Medicine Vaccine (1)] Future Scheduled 2021-05-08 Pneumococcal Combined [facility] Test 10:19:03 (1 of 2 - PPSV23) [code of M edicine = Pneumococcal Combined (1 of 2 - PPSV23)] Future Scheduled 2021-05-08 TETANUS SHOT (ADULT) [facility] Test 10:19:03 [code = TETANUS SHOT of Medi cine (ADULT)] Future Scheduled 2021-05-08 Diabetic foot [facility] Test 10:19:03 examination of Medicine (regime/therapy) [code = [id number]] Future Scheduled 2021-05-08 ANNUAL DIABETIC [facility] Test 10:19:03 RETINOPATHY SCREENING of Med icine [code = ANNUAL DIABETIC RETINOPATHY SCREENING] Future Scheduled 2021-05-08 Hepatitis C screening [facility] Test 10:19:03 (procedure) [code = of Medic ine [id number]] Future Scheduled 2021-05-08 Human immunodeficiency [facility] Test 10:19:03 virus screening of Medicine (procedure) [code = 318320080] Future Scheduled 2021-05-08 ZOSTER VACCINE (1 of 2) [facility] Test 10:19:03 [code = ZOSTER VACCINE of Me dicine (1 of 2)] Future Scheduled 2021-05-08 MEDICARE AWV (Initial) [facility] Test 10:19:03 [code = MEDICARE AWV of Medi cine (Initial)] Future Scheduled 2021-05-08 FLU VACCINE > 6 MONTHS [facility] Test 10:19:03 [code = FLU VACCINE > 6 of M edicine MONTHS] Future Scheduled 2021-05-08 BMI FOLLOW UP PLAN [facility] Test 10:19:03 [code = BMI FOLLOW UP of Med icine PLAN] Future Scheduled 2021-05-05 WOUND CARE INSTRUCTIONS Ordered: [facility] [employer] Test 16:34:35 [code = 08390] 05/05/2021 of Medicine Future Scheduled 2021-04-09 Screening for malignant [facility] Test 17:32:59 neoplasm of colon of Medicin e (procedure) [code = 766133928] Future Scheduled 2021-04-09 COVID-19 Vaccine (1) [facility] Test 17:32:59 [code = COVID-19 of Medicine Vaccine (1)] Future Scheduled 2021-04-09 Pneumococcal Combined [facility] Test 17:32:59 (1 of 2 - PPSV23) [code of M edicine = Pneumococcal Combined (1 of 2 - PPSV23)] Future Scheduled 2021-04-09 TETANUS SHOT (ADULT) [facility] Test 17:32:59 [code = TETANUS SHOT of Medi cine (ADULT)] Future Scheduled 2021-04-09 Diabetic foot [facility] [employer] Test 17:32:59 examination of Medicine (regime/therapy) [code = 736032223] Future Scheduled 2021-04-09 ANNUAL DIABETIC [facility] [employer] Test 17:32:59 RETINOPATHY SCREENING of Med icine [code = ANNUAL DIABETIC RETINOPATHY SCREENING] Future Scheduled 2021-04-09 Hepatitis C screening [facility] Test 17:32:59 (procedure) [code = of Medic ine 831902373] Future Scheduled 2021-04-09 Human immunodeficiency [facility] Test 17:32:59 virus screening of Medicine (procedure) [code = 214869387] Future Scheduled 2021-04-09 ZOSTER VACCINE (1 of 2) [facility] Test 17:32:59 [code = ZOSTER VACCINE of Me dicine (1 of 2)] Future Scheduled 2021-04-09 MEDICARE AWV (Initial) [facility] Test 17:32:59 [code = MEDICARE AWV of Medi cine (Initial)] Future Scheduled 2021-04-09 FLU VACCINE > 6 MONTHS [facility] Test 17:32:59 [code = FLU VACCINE > 6 of edicine MONTHS] Future Scheduled 2021-04-09 BMI FOLLOW UP PLAN [facility] Test 17:32:59 [code = BMI FOLLOW UP of Med icine PLAN] Future Scheduled 2021-04-07 WOUND CARE INSTRUCTIONS Ordered: [facility] Test 16:17:20 [code = 50203] 04/07/2021 of Medicine Future Scheduled 2021-02-10 ID DEBRIDEMENT, SKIN, Ordered: [facility] Test 15:30:13 SUB-Q TISSUE,=<20 SQ CM 02/10/2021 of M edicine [code = 94677] Future Scheduled 2021-02-10 Screening for malignant [facility] Test 15:18:14 neoplasm of colon of Medicin e (procedure) [code = 408855820] Future Scheduled 2021-02-10 Pneumococcal Combined [facility] Test 15:18:14 (1 of 2 - PPSV23) [code of M edicine = Pneumococcal Combined (1 of 2 - PPSV23)] Future Scheduled 2021-02-10 COVID-19 Vaccine (1) [facility] Test 15:18:14 [code = COVID-19 of Medicine Vaccine (1)] Future Scheduled 2021-02-10 TETANUS SHOT (ADULT) [facility] Test 15:18:14 [code = TETANUS SHOT of Medi cine (ADULT)] Future Scheduled 2021-02-10 Diabetic foot [facility] Test 15:18:14 examination of Medicine (regime/therapy) [code = 723709946] Future Scheduled 2021-02-10 ANNUAL DIABETIC [facility] [employer] Test 15:18:14 RETINOPATHY SCREENING of Med icine [code = ANNUAL DIABETIC RETINOPATHY SCREENING] Future Scheduled 2021-02-10 Hepatitis C screening [facility] Test 15:18:14 (procedure) [code = of Medic ine 096795960] Future Scheduled 2021-02-10 Human immunodeficiency [facility] Test 15:18:14 virus screening of Medicine (procedure) [code = 659247984] Future Scheduled 2021-02-10 ZOSTER VACCINE (1 of 2) [facility] Test 15:18:14 [code = ZOSTER VACCINE of Ut dicine (1 of 2)] Future Scheduled 2021-02-10 MEDICARE AWV (Initial) [facility] Test 15:18:14 [code = MEDICARE AWV of Medi cine (Initial)] Future Scheduled 2021-02-10 FLU VACCINE > 6 MONTHS [facility] Test 15:18:14 [code = FLU VACCINE > 6 of M edicine MONTHS] Future Scheduled 2021-02-10 BMI FOLLOW UP PLAN [facility] Test 15:18:14 [code = BMI FOLLOW UP of Med icine PLAN] Future Scheduled 2021-01-20 US ARTERIAL LEGS 1 Occurrences [facility] Test 11:28:17 BILATERAL [code = starting of Medicin e 37158-9] 01/20/2021 until 01/20/2022 Future Scheduled 2021-01-20 Screening for malignant [facility] Test 11:24:40 neoplasm of colon of Medicin e (procedure) [code = 122167707] Future Scheduled 2021-01-20 Pneumococcal Combined [facility] Test 11:24:40 (1 of 2 - PPSV23) [code of M edicine = Pneumococcal Combined (1 of 2 - PPSV23)] Future Scheduled 2021-01-20 COVID-19 Vaccine (1) [facility] Test 11:24:40 [code = COVID-19 of Medicine Vaccine (1)] Future Scheduled 2021-01-20 TETANUS SHOT (ADULT) [facility] Test 11:24:40 [code = TETANUS SHOT of Medi cine (ADULT)] Future Scheduled 2021-01-20 Diabetic foot [facility] [employer] Test 11:24:40 examination of Medicine (regime/therapy) [code = 783082341] Future Scheduled 2021-01-20 ANNUAL DIABETIC [facility] [employer] Test 11:24:40 RETINOPATHY SCREENING of Med icine [code = ANNUAL DIABETIC RETINOPATHY SCREENING] Future Scheduled 2021-01-20 Hepatitis C screening [facility] Test 11:24:40 (procedure) [code = of Medic ine 665702728] Future Scheduled 2021-01-20 Human immunodeficiency [facility] Test 11:24:40 virus screening of Medicine (procedure) [code = 198959749] Future Scheduled 2021-01-20 ZOSTER VACCINE (1 of 2) [facility] Test 11:24:40 [code = ZOSTER VACCINE of Ut dicine (1 of 2)] Future Scheduled 2021-01-20 MEDICARE AWV (Initial) [facility] [employer] Test 11:24:40 [code = MEDICARE AWV of Medi cine (Initial)] Future Scheduled 2021-01-20 FLU VACCINE > 6 MONTHS [facility] [employer] Test 11:24:40 [code = FLU VACCINE > 6 of edicine MONTHS] Future Scheduled 2021-01-20 BMI FOLLOW UP PLAN [facility] Test 11:24:40 [code = BMI FOLLOW UP of Med icine PLAN] Future Scheduled 2021-01-04 ID DEBRIDEMENT, SKIN, Ordered: [facility] Test 21:20:15 SUB-Q TISSUE,=<20 SQ CM 01/04/2021 of M edicine [code = 99621] Future Scheduled 2021-01-04 Screening for malignant [facility] Test 21:13:01 neoplasm of colon of Medicin e (procedure) [code = 136971401] Future Scheduled 2021-01-04 COVID-19 Vaccine (1) [facility] Test 21:13:01 [code = COVID-19 of Medicine Vaccine (1)] Future Scheduled 2021-01-04 TETANUS SHOT (ADULT) [facility] Test 21:13:01 [code = TETANUS SHOT of Medi cine (ADULT)] Future Scheduled 2021-01-04 Diabetic foot [facility] [employer] Test 21:13:01 examination of Medicine (regime/therapy) [code = 235065710] Future Scheduled 2021-01-04 ANNUAL DIABETIC [facility] [employer] Test 21:13:01 RETINOPATHY SCREENING of Med icine [code = ANNUAL DIABETIC RETINOPATHY SCREENING] Future Scheduled 2021-01-04 Hepatitis C screening [facility] Test 21:13:01 (procedure) [code = of Medic ine 416733133] Future Scheduled 2021-01-04 Human immunodeficiency [facility] Test 21:13:01 virus screening of Medicine (procedure) [code = 024199865] Future Scheduled 2021-01-04 ZOSTER VACCINE (1 of 2) [facility] Test 21:13:01 [code = ZOSTER VACCINE of Ut dicine (1 of 2)] Future Scheduled 2021-01-04 MEDICARE AWV (Initial) [facility] Test 21:13:01 [code = MEDICARE AWV of [facility] cine (Initial)] Future Scheduled 2021-01-04 FLU VACCINE > 6 MONTHS [facility] Test 21:13:01 [code = FLU VACCINE > 6 of edicine MONTHS] Future Scheduled 2021-01-04 BMI FOLLOW UP PLAN [facility] [employer] Test 21:13:01 [code = BMI FOLLOW UP of Med icine PLAN] Future Scheduled 2020-12-03 ID DEBRIDEMENT OPEN Ordered: [facility] [employer] Test 09:58:36 WOUND 20 SQ CM< [code = 12/03/2020 of edicine 74306] Future Scheduled 2020-12-03 ID DEBRIDEMENT OPEN Ordered: [employer] Test 09:58:36 WOUND 20 SQ CM< [code = 12/03/2020 of edicine 19783] Future Scheduled 2020-12-03 Screening for malignant [facility] Test 09:53:42 neoplasm of colon of Medicin e (procedure) [code = 600023804] Future Scheduled 2020-12-03 COVID-19 Vaccine (1) [facility] Test 09:53:42 [code = COVID-19 of Medicine Vaccine (1)] Future Scheduled 2020-12-03 TETANUS SHOT (ADULT) [facility] Test 09:53:42 [code = TETANUS SHOT of Medi cine (ADULT)] Future Scheduled 2020-12-03 Diabetic foot [facility] [employer] Test 09:53:42 examination of Medicine (regime/therapy) [code = 548926284] Future Scheduled 2020-12-03 ANNUAL DIABETIC [facility] [employer] Test 09:53:42 RETINOPATHY SCREENING of Med icine [code = ANNUAL DIABETIC RETINOPATHY SCREENING] Future Scheduled 2020-12-03 Hepatitis C screening [facility] Test 09:53:42 (procedure) [code = of Medic ine 592860744] Future Scheduled 2020-12-03 Human immunodeficiency [facility] Test 09:53:42 virus screening of Medicine (procedure) [code = 152156700] Future Scheduled 2020-12-03 ZOSTER VACCINE (1 of 2) [facility] Test 09:53:42 [code = ZOSTER VACCINE of Ut dicine (1 of 2)] Future Scheduled 2020-12-03 MEDICARE AWV (Initial) [facility] Test 09:53:42 [code = MEDICARE AWV of Medi cine (Initial)] Future Scheduled 2020-12-03 FLU VACCINE > 6 MONTHS [facility] Test 09:53:42 [code = FLU VACCINE > 6 of M edicine MONTHS] Future Scheduled 2020-12-03 BMI FOLLOW UP PLAN [facility] Test 09:53:42 [code = BMI FOLLOW UP of Med icine PLAN] Future Scheduled 2020-12-03 Screening for malignant [facility] Test 09:53:42 neoplasm of colon of Medicin e (procedure) [code = 030366947] Future Scheduled 2020-12-03 COVID-19 Vaccine (1) [facility] Test 09:53:42 [code = COVID-19 of Medicine Vaccine (1)] Future Scheduled 2020-12-03 TETANUS SHOT (ADULT) [facility] Test 09:53:42 [code = TETANUS SHOT of Medi cine (ADULT)] Future Scheduled 2020-12-03 Diabetic foot [facility] [employer] Test 09:53:42 examination of Medicine (regime/therapy) [code = 566392515] Future Scheduled 2020-12-03 ANNUAL DIABETIC [facility] [employer] Test 09:53:42 RETINOPATHY SCREENING of Med jovine [code = ANNUAL DIABETIC RETINOPATHY SCREENING] Future Scheduled 2020-12-03 Hepatitis C screening [employer] Test 09:53:42 (procedure) [code = of Medic ine 829256378] Future Scheduled 2020-12-03 Human immunodeficiency [facility] [employer] Test 09:53:42 virus screening of Medicine (procedure) [code = 971263680] Future Scheduled 2020-12-03 ZOSTER VACCINE (1 of 2) [employer] Test 09:53:42 [code = ZOSTER VACCINE of Ut dicine (1 of 2)] Future Scheduled 2020-12-03 MEDICARE AWV (Initial) [facility] [employer] Test 09:53:42 [code = MEDICARE AWV of [facility] (Initial)] Future Scheduled 2020-12-03 FLU VACCINE > 6 MONTHS [facility] [employer] Test 09:53:42 [code = FLU VACCINE > 6 of edicine MONTHS] Future Scheduled 2020-12-03 BMI FOLLOW UP PLAN [facility] [employer] Test 09:53:42 [code = BMI FOLLOW UP of Med icine PLAN] Future Scheduled 2020-11-25 WOUND CARE INSTRUCTIONS Ordered: [facility] Test 16:09:42 [code = 27795] 11/25/2020 of Medicine Future Scheduled 2020-11-25 WOUND CARE INSTRUCTIONS Ordered: [facility] Test 16:09:42 [code = 91487] 11/25/2020 of Medicine Future Scheduled 2020-11-03 ID DRAINAGE OF Ordered: [facility] [employer] Test 12:26:16 HEMATOMA/FLUID [code = 11/03/2020 of Me dicine 09491] Future Scheduled 2020-11-03 ID DEBRIDEMENT OPEN Ordered: [facility] Test 12:26:16 WOUND 20 SQ CM< [code = 11/03/2020 of M edicine 38718] Future Scheduled 2020-11-03 Hepatitis C screening [employer] Test 09:36:18 (procedure) [code = of Medic ine 542286832] Future Scheduled 2020-11-03 Human immunodeficiency [facility] [employer] Test 09:36:18 virus screening of Medicine (procedure) [code = 242455800] Future Scheduled 2020-11-03 ZOSTER VACCINE (1 of 2) [facility] Test 09:36:18 [code = ZOSTER VACCINE of Me dicine (1 of 2)] Future Scheduled 2020-11-03 MEDICARE AWV (Initial) [facility] [employer] Test 09:36:18 [code = MEDICARE AWV of Medi cine (Initial)] Future Scheduled 2020-11-03 FLU VACCINE > 6 MONTHS [facility] [employer] Test 09:36:18 [code = FLU VACCINE > 6 of M edicine MONTHS] Future Scheduled 2020-11-03 BMI FOLLOW UP PLAN [employer] Test 09:36:18 [code = BMI FOLLOW UP of Med icine PLAN] Future Scheduled 2020-11-03 Screening for malignant [facility] Test 09:36:18 neoplasm of colon of Medicin e (procedure) [code = 683147723] Future Scheduled 2020-11-03 COVID-19 Vaccine (1) [facility] Test 09:36:18 [code = COVID-19 of Medicine Vaccine (1)] Future Scheduled 2020-11-03 TETANUS SHOT (ADULT) [facility] Test 09:36:18 [code = TETANUS SHOT of Medi cine (ADULT)] Future Scheduled 2020-11-03 Diabetic foot [facility] [employer] Test 09:36:18 examination of Medicine (regime/therapy) [code = 070739607] Future Scheduled 2020-11-03 ANNUAL DIABETIC [facility] [employer] Test 09:36:18 RETINOPATHY SCREENING of Med icine [code = ANNUAL DIABETIC RETINOPATHY SCREENING] Future Scheduled 2020-10-28 WOUND CARE INSTRUCTIONS Ordered: [facility] Test 17:23:33 [code = 51952] 10/28/2020 of Medicine Future Scheduled 2020-10-26 Screening for malignant [facility] Test 23:34:24 neoplasm of colon of Medicin e (procedure) [code = 013931317] Future Scheduled 2020-10-26 COVID-19 Vaccine (1) [facility] Test 23:34:24 [code = COVID-19 of Medicine Vaccine (1)] Future Scheduled 2020-10-26 TETANUS SHOT (ADULT) [facility] Test 23:34:24 [code = TETANUS SHOT of Medi cine (ADULT)] Future Scheduled 2020-10-26 Diabetic foot [facility] Test 23:34:24 examination of Medicine (regime/therapy) [code = 577292269] Future Scheduled 2020-10-26 ANNUAL DIABETIC [facility] [employer] Test 23:34:24 RETINOPATHY SCREENING of Med icine [code = ANNUAL DIABETIC RETINOPATHY SCREENING] Future Scheduled 2020-10-26 Hepatitis C screening [employer] Test 23:34:24 (procedure) [code = of Medic ine 257384343] Future Scheduled 2020-10-26 Human immunodeficiency [facility] [employer] Test 23:34:24 virus screening of Medicine (procedure) [code = 936966632] Future Scheduled 2020-10-26 ZOSTER VACCINE (1 of 2) [facility] [employer] Test 23:34:24 [code = ZOSTER VACCINE of Me dicine (1 of 2)] Future Scheduled 2020-10-26 MEDICARE AWV (Initial) [facility] [employer] Test 23:34:24 [code = MEDICARE AWV of Medi cine (Initial)] Future Scheduled 2020-10-26 FLU VACCINE > 6 MONTHS [facility] [employer] Test 23:34:24 [code = FLU VACCINE > 6 of M edicine MONTHS] Future Scheduled 2020-10-26 BMI FOLLOW UP PLAN [employer] Test 23:34:24 [code = BMI FOLLOW UP of Med icine PLAN] Future Scheduled 2020-09-02 Screening for malignant [facility] Test 18:54:49 neoplasm of colon of Medicin e (procedure) [code = 144273804] Future Scheduled 2020-09-02 COVID-19 Vaccine (1) [facility] Test 18:54:49 [code = COVID-19 of Medicine Vaccine (1)] Future Scheduled 2020-09-02 TETANUS SHOT (ADULT) [facility] Test 18:54:49 [code = TETANUS SHOT of Medi cine (ADULT)] Future Scheduled 2020-09-02 Diabetic foot [facility] Test 18:54:49 examination of Medicine (regime/therapy) [code = 647031709] Future Scheduled 2020-09-02 ANNUAL DIABETIC [facility] [employer] Test 18:54:49 RETINOPATHY SCREENING of Med icine [code = ANNUAL DIABETIC RETINOPATHY SCREENING] Future Scheduled 2020-09-02 Hepatitis C screening [employer] Test 18:54:49 (procedure) [code = of Medic ine 203845099] Future Scheduled 2020-09-02 Human immunodeficiency [facility] Test 18:54:49 virus screening of Medicine (procedure) [code = 114718452] Future Scheduled 2020-09-02 ZOSTER VACCINE (1 of 2) [facility] Test 18:54:49 [code = ZOSTER VACCINE of Me dicine (1 of 2)] Future Scheduled 2020-09-02 MEDICARE AWV (Initial) [facility] [employer] Test 18:54:49 [code = MEDICARE AWV of Medi cine (Initial)] Future Scheduled 2020-09-02 FLU VACCINE > 6 MONTHS [facility] [employer] Test 18:54:49 [code = FLU VACCINE > 6 of M edicine MONTHS] Future Scheduled 2020-09-02 BMI FOLLOW UP PLAN [employer] Test 18:54:49 [code = BMI FOLLOW UP of Med icine PLAN] Future Scheduled 2020-08-19 WOUND CARE INSTRUCTIONS Ordered: [facility] Test 16:42:50 [code = 21527] 08/19/2020 of Medicine Future Scheduled 2020-08-10 ID DEBRIDEMENT, SKIN, Ordered: [facility] Test 12:01:06 SUB-Q 08/10/2020 of Medicine TISSUE,MUSCLE,=<20 SQ CM [code = 47954] Future Scheduled 2020-08-10 Screening for malignant [facility] Test 11:57:36 neoplasm of colon of Medicin e (procedure) [code = 390094701] Future Scheduled 2020-08-10 COVID-19 Vaccine (1) [facility] Test 11:57:36 [code = COVID-19 of Medicine Vaccine (1)] Future Scheduled 2020-08-10 TETANUS SHOT (ADULT) [facility] Test 11:57:36 [code = TETANUS SHOT of Medi cine (ADULT)] Future Scheduled 2020-08-10 Diabetic foot [facility] Test 11:57:36 examination of Medicine (regime/therapy) [code = 572084308] Future Scheduled 2020-08-10 ANNUAL DIABETIC [facility] [employer] Test 11:57:36 RETINOPATHY SCREENING of Med icine [code = ANNUAL DIABETIC RETINOPATHY SCREENING] Future Scheduled 2020-08-10 Hepatitis C screening [facility] Test 11:57:36 (procedure) [code = of Medic ine 504217203] Future Scheduled 2020-08-10 Human immunodeficiency [facility] Test 11:57:36 virus screening of Medicine (procedure) [code = 566145730] Future Scheduled 2020-08-10 ZOSTER VACCINE (1 of 2) [facility] Test 11:57:36 [code = ZOSTER VACCINE of Me dicine (1 of 2)] Future Scheduled 2020-08-10 MEDICARE AWV (Initial) [facility] Test 11:57:36 [code = MEDICARE AWV of Medi cine (Initial)] Future Scheduled 2020-08-10 FLU VACCINE > 6 MONTHS [facility] [employer] Test 11:57:36 [code = FLU VACCINE > 6 of M edicine MONTHS] Future Scheduled 2020-08-10 BMI FOLLOW UP PLAN [facility] Test 11:57:36 [code = BMI FOLLOW UP of Med icine PLAN] Future Scheduled 2020-07-30 BMI FOLLOW UP PLAN [facility] [employer] Test 15:31:06 [code = BMI FOLLOW UP of Med icine PLAN] Future Scheduled 2020-07-30 Screening for malignant [facility] Test 08:53:16 neoplasm of colon of Medicin e (procedure) [code = 522081307] Future Scheduled 2020-07-30 COVID-19 Vaccine (1) [facility] Test 08:53:16 [code = COVID-19 of Medicine Vaccine (1)] Future Scheduled 2020-07-30 TETANUS SHOT (ADULT) [facility] Test 08:53:16 [code = TETANUS SHOT of Medi cine (ADULT)] Future Scheduled 2020-07-30 Diabetic foot [facility] Test 08:53:16 examination of Medicine (regime/therapy) [code = 518444756] Future Scheduled 2020-07-30 ANNUAL DIABETIC [facility] [employer] Test 08:53:16 RETINOPATHY SCREENING of Med icine [code = ANNUAL DIABETIC RETINOPATHY SCREENING] Future Scheduled 2020-07-30 Hepatitis C screening [facility] Test 08:53:16 (procedure) [code = of Medic ine 554348921] Future Scheduled 2020-07-30 Human immunodeficiency [facility] Test 08:53:16 virus screening of Medicine (procedure) [code = 009747343] Future Scheduled 2020-07-30 ZOSTER VACCINE (1 of 2) [facility] Test 08:53:16 [code = ZOSTER VACCINE of Me dicine (1 of 2)] Future Scheduled 2020-07-30 [...] edicine MONTHS] Future Scheduled COLON CANCER SCREENING: [employer] [facility] COLONOSCOPY [code = of Medic ine COLON CANCER SCREENING: COLONOSCOPY] Future Scheduled TETANUS SHOT (ADULT) [facility] [employer] [facility] [code = TETANUS SHOT of Medi cine (ADULT)] Future Scheduled Diabetic foot [facility] Test examination of Medicine (regime/therapy) [code = 611390905] Future Scheduled ANNUAL DIABETIC [facility] [employer] Test RETINOPATHY SCREENING of Med [...] 6 of M edicine MONTHS] Future Scheduled ID DEBRIDEMENT OPEN Ordered: [employer] Test WOUND 20 SQ CM< [code = 07/24/2019 of edicine 95008] Future Scheduled COLON CANCER SCREENING: [facility] [employer] Test COLONOSCOPY [code = of Medic ine COLON CANCER SCREENING: COLONOSCOPY] Future Scheduled TETANUS SHOT (ADULT) [employer] [facility] [employer] [facility] [code = TETANUS SHOT of Medi cine (ADULT)] Future Scheduled Diabetic foot [facility] [employer] Test examination of Medicine (regime/therapy) [code = 942075005] Future Scheduled ANNUAL DIABETIC [employer] [...] UP of Med icine PLAN] Future Scheduled ID DEBRIDEMENT OPEN Ordered: [employer] [facility] [employer] [facility] WOUND 20 SQ CM< [code = 08/07/2019 of [facility] [address]] Future Scheduled COLON CANCER SCREENING: [employer] [facility] COLONOSCOPY [code = of Medic ine COLON CANCER SCREENING: COLONOSCOPY] Future Scheduled TETANUS SHOT (ADULT) [employer] [facility] [employer] [facility] [code = TETANUS SHOT of Medi cine (ADULT)] Future Scheduled Diabetic foot [employer] [facility] examination of Medicine (regime/therapy) [code = 880923703] Future Scheduled ANNUAL DIABETIC [facility] [employer] Test RETINOPATHY SCREENING of Med [...] [code = FLU VACCINE > 6 of [facility] MONTHS] Future Scheduled BMI FOLLOW UP PLAN [employer] Test [code = BMI FOLLOW UP of Med icine PLAN] Future Scheduled ID DEBRIDEMENT OPEN Ordered: [employer] Test WOUND 20 SQ CM< [code = 08/22/2019 of [facility] 43170] Future Scheduled ID POST-OP FOLLOW-UP Ordered: [facility] [employer] [facility] VISIT [code = 19691] 08/22/2019 of Medi cine Future Scheduled SUTURE REMOVAL KIT Ordered: [employer] Test [code = NOCPT] 09/01/2019 of Medicine Future Scheduled COLON CANCER SCREENING: [employer] [facility] COLONOSCOPY [code = of Medic ine COLON CANCER SCREENING: COLONOSCOPY] Future Scheduled TETANUS SHOT (ADULT) [employer] Test [code = TETANUS SHOT of Medi cine (ADULT)] Future Scheduled Diabetic foot [employer] [facility] examination of Medicine (regime/therapy) [code = 531102697] Future Scheduled ANNUAL DIABETIC [employer] [...] SCREENING: COLONOSCOPY] Future Scheduled TETANUS SHOT (ADULT) [employer] [facility] [employer] Test [code = TETANUS SHOT of Medi cine (ADULT)] Future Scheduled Diabetic foot [employer] [facility] examination of Medicine (regime/therapy) [code = 390844491] Future Scheduled ANNUAL DIABETIC [facility] [employer] Test RETINOPATHY SCREENING of Med [...] PLAN] Future Scheduled COLON CANCER SCREENING: [facility] [employer] Test COLONOSCOPY [code = of Medic ine COLON CANCER SCREENING: COLONOSCOPY] Future Scheduled TETANUS SHOT (ADULT) [employer] Test [code = TETANUS SHOT of Medi cine (ADULT)] Future Scheduled Diabetic foot [facility] Test examination of Medicine (regime/therapy) [code = 901761704] Future Scheduled ANNUAL DIABETIC [facility] [employer] Test RETINOPATHY SCREENING of Med [...] UP of Med icine PLAN] Future Scheduled ID DEBRIDEMENT, SKIN, Ordered: [employer] Test SUB-Q TISSUE,=<20 SQ CM 10/04/2019 of M edicine [code = 70636] Future Scheduled COLON CANCER SCREENING: [employer] Test COLONOSCOPY [code = of Medic ine COLON CANCER SCREENING: COLONOSCOPY] Future Scheduled TETANUS SHOT (ADULT) [employer] Test [code = TETANUS SHOT of Medi cine (ADULT)] Future Scheduled Diabetic foot [facility] Test examination of Medicine (regime/therapy) [code = 898152322] Future Scheduled ANNUAL DIABETIC [employer] [...] UP of Med icine PLAN] Future Scheduled ID POST-OP FOLLOW-UP Ordered: [employer] Test VISIT [code = 44177] 12/06/2019 of Medi cine Future Scheduled COLON CANCER SCREENING: [facility] [employer] Test COLONOSCOPY [code = of Medic ine COLON CANCER SCREENING: COLONOSCOPY] Future Scheduled TETANUS SHOT (ADULT) [employer] Test [code = TETANUS SHOT of Medi cine (ADULT)] Future Scheduled Diabetic foot [employer] Test examination of Medicine (regime/therapy) [code = 231168389] Future Scheduled ANNUAL DIABETIC [facility] C [employer] Test RETINOPATHY SCREENING of Med [...] PLAN] Future Scheduled COLON CANCER SCREENING: [facility] [employer] Test COLONOSCOPY [code = of Medic ine COLON CANCER SCREENING: COLONOSCOPY] Future Scheduled TETANUS SHOT (ADULT) [employer] Test [code = TETANUS SHOT of Medi cine (ADULT)] Future Scheduled Diabetic foot [employer] Test examination of Medicine (regime/therapy) [code = 522152371] Future Scheduled ANNUAL DIABETIC [facility] [employer] [...] SCREENING: COLONOSCOPY] Future Scheduled TETANUS SHOT (ADULT) [employer] Test [code = TETANUS SHOT of Medi cine (ADULT)] Future Scheduled Diabetic foot [facility] [employer] Test examination of Medicine (regime/therapy) [code = 615647104] Future Scheduled ANNUAL DIABETIC [facility] C [employer]lege Test RETINOPATHY SCREENING of Med [...] PLAN] Future Scheduled COLON CANCER SCREENING: [facility] [employer] Test COLONOSCOPY [code = of Medic ine COLON CANCER SCREENING: COLONOSCOPY] Future Scheduled COVID-19 Vaccine [employer] Test Evaluation [code = of Medici ne COVID-19 Vaccine Evaluation] Future Scheduled TETANUS SHOT (ADULT) [employer] Test [code = TETANUS SHOT of Medi cine (ADULT)] Future Scheduled Diabetic foot [employer] Test examination of Medicine (regime/therapy) [code = 304781999] Future Scheduled ANNUAL DIABETIC [facility] [employer] Test RETINOPATHY SCREENING of Med [...] PLAN] Future Scheduled COLON CANCER SCREENING: [facility] [employer] Test COLONOSCOPY [code = of Medic ine COLON CANCER SCREENING: COLONOSCOPY] Future Scheduled COVID-19 Vaccine [facility] [employer] Test Evaluation [code = of Medici ne COVID-19 Vaccine Evaluation] Future Scheduled TETANUS SHOT (ADULT) [employer] Test [code = TETANUS SHOT of Medi cine (ADULT)] Future Scheduled Diabetic foot [facility] [employer] Test examination of Medicine (regime/therapy) [code = 946326415] Future Scheduled ANNUAL DIABETIC [facility] [employer] Test RETINOPATHY SCREENING of Med [...] SCREENING: COLONOSCOPY] Future Scheduled COVID-19 Vaccine [facility] [employer] Test Evaluation [code = of Medici ne COVID-19 Vaccine Evaluation] Future Scheduled TETANUS SHOT (ADULT) [employer] Test [code = TETANUS SHOT of Medi cine (ADULT)] Future Scheduled Diabetic foot [facility] [employer]ge Test examination of Medicine (regime/therapy) [code = 055035159] Future Scheduled ANNUAL DIABETIC [facility] [employer] Test RETINOPATHY SCREENING of Med icine [code = ANNUAL DIABETIC RETINOPATHY SCREENING] Future Scheduled HEPATITIS C SCREENING [employer] Test [code = HEPATITIS C of Medic ine SCREENING] Future Scheduled HIV SCREENING [code = [employer] HIV SCREENING] of Medicine Future Scheduled ZOSTER VACCINE (1 of 2) [facility] [employer] Test [code = ZOSTER VACCINE of Me dicine (1 of 2)] Future Scheduled MEDICARE AWV (Initial) [employer] Test [code = MEDICARE AWV of Medi cine (Initial)] Future Scheduled FLU VACCINE > 6 MONTHS [employer] Test [code = FLU VACCINE > 6 of M edicine MONTHS] Future Scheduled BMI FOLLOW UP PLAN [employer] Test [code = BMI FOLLOW UP of Med icine PLAN] Future Scheduled ID DEBRIDEMENT, SKIN, Ordered: [employer] Test SUB-Q TISSUE,=<20 SQ CM 05/25/2020 of M edicine [code = 17174] Future Scheduled Screening for malignant [facility] [employer] Test neoplasm of colon of Medicin e (procedure) [code = 226428915] Future Scheduled TETANUS SHOT (ADULT) [employer] Test [code = TETANUS SHOT of Medi cine (ADULT)] Future Scheduled COVID-19 Vaccine (1) [employer] Test [code = COVID-19 of Medicine Vaccine (1)] Future Scheduled Diabetic foot [facility] [employer]ge Test examination of Medicine (regime/therapy) [code = 887771543] Future Scheduled ANNUAL DIABETIC [facility] [employer] Test RETINOPATHY SCREENING of Med icine [code = ANNUAL DIABETIC RETINOPATHY SCREENING] Future Scheduled Hepatitis C screening [employer] Test (procedure) [code = of Medic ine 853917803] Future Scheduled Human immunodeficiency [employer] Test virus screening of Medicine (procedure) [code = 884941411] Future Scheduled ZOSTER VACCINE (1 of 2) [...] PLAN] Future Scheduled Screening for malignant [facility] [employer] Test neoplasm of colon of Medicin e (procedure) [code = 494692040] Future Scheduled TETANUS SHOT (ADULT) [employer] Test [code = TETANUS SHOT of Medi cine (ADULT)] Future Scheduled COVID-19 Vaccine (1) [employer] Test [code = COVID-19 of Medicine Vaccine (1)] Future Scheduled Diabetic foot [employer] Test examination of Medicine (regime/therapy) [code = 707689658] Future Scheduled ANNUAL DIABETIC [facility] [employer] Test RETINOPATHY SCREENING of Med icine [code = ANNUAL DIABETIC RETINOPATHY SCREENING] Future Scheduled Hepatitis C screening [employer] Test (procedure) [code = of Medic ine 665642162] Future Scheduled Human immunodeficiency [employer] Test virus screening of Medicine (procedure) [code = 179283847] Future Scheduled ZOSTER VACCINE (1 of 2) [facility] [employer] Test [code = ZOSTER VACCINE of Ut dicine (1 of 2)] Future Scheduled MEDICARE [...] PLAN] Future Scheduled Screening for malignant [facility] [employer] Test neoplasm of colon of Medicin e (procedure) [code = 155937420] Future Scheduled TETANUS SHOT (ADULT) [employer] Test [code = TETANUS SHOT of Medi cine (ADULT)] Future Scheduled COVID-19 Vaccine (1) [employer] Test [code = COVID-19 of Medicine Vaccine (1)] Future Scheduled Diabetic foot [employer] Test examination of Medicine (regime/therapy) [code = 773617217] Future Scheduled ANNUAL DIABETIC [facility] [employer] Test RETINOPATHY SCREENING of Med icine [code = ANNUAL DIABETIC RETINOPATHY SCREENING] Future Scheduled Hepatitis C screening [employer] Test (procedure) [code = of Medic ine 346538735] Future Scheduled Human immunodeficiency [employer] Test virus screening of Medicine (procedure) [code = 832113702] Future Scheduled ZOSTER VACCINE (1 of 2) [facility] [employer] Test [code = ZOSTER VACCINE of [...] edicine MONTHS] Future Scheduled COLON CANCER SCREENING: [facility] Test COLONOSCOPY [code = of Medic ine COLON CANCER SCREENING: COLONOSCOPY] Future Scheduled TETANUS SHOT (ADULT) [employer] Test [code = TETANUS SHOT of Medi cine (ADULT)] Future Scheduled Diabetic foot [facility] [employer]ge Test examination of Medicine (regime/therapy) [code = 287209213] Future Scheduled ANNUAL DIABETIC [facility] [employer] Test RETINOPATHY SCREENING of Med icine [code = ANNUAL DIABETIC RETINOPATHY SCREENING] Future Scheduled BMI FOLLOW UP PLAN [employer] Test [code = BMI FOLLOW UP of Med icine PLAN] Future Scheduled HEPATITIS C SCREENING [employer] Test [code = HEPATITIS C of Medic ine SCREENING] Future Scheduled HIV SCREENING [code = [employer] HIV SCREENING] of Medicine Encounters Start End Encounter Admission Attending Care Care Encounter Source Date/Time Date/Time Type Type Clinicians Facility Department ID 2021-04-02 Outpatient READMISSIO ENCCLR ENCCLR [id number] ENCCLR 11:32:21 N 2021-04-02 Outpatient 3 [facility] ENCPL IBAN 2020 ENCPL 11:23:39 amanda 0120 [facility] 2021-04-02 Outpatient 3 [facility] ENCPL IBAN 2020 ENCPL 11:23:15 amanda 0119 [facility] 2021-04-02 Outpatient 3 [id number] ENCPL REF ENCPL 11:20:27 1112021-04-02 Outpatient 3 [id number] ENCPL REF [id number] ENCPL 10:40:10 0925 2021-04-02 Outpatient 3 [id number] ENCPL REF [id number] ENCPL 10:37:41 0919 2021-04-02 Outpatient 3 [id number] ENCPL REF [id number] ENCPL 10:37:29 0918 2021-04-02 Outpatient 3 [id number] ENCSL REF [id number] ENCSL 10:29:18 62824 2021-04-02 Outpatient NEW ENCCLR ENCCLR [id number] EN CCLR 09:45:29 ADMISSION 2021-04-02 Outpatient 3 [facility] ENCPL NACHO [id number] ENCPL 09:40:19 amanda, 0422 Anavelfransisco 2021-04-02 Outpatient 3 [id number] ENCPL REF [id number] ENCPL 09:39:18 0420 2021-04-02 Outpatient 3 [id number] ENCPL REF [id number] ENCPL 09:39:08 0419 2021-04-01 Outpatient Duval, STLMLC STLMLC [id number] NPI:174 12:55:18 [place] [address] [id number] 2020-12-13 Outpatient ROSS, [facility] Surgery [id number] [facility] 08:44:41 STAR 2020-12-12 Inpatient ROSS, [facility] Surgery [id number] [facility] 22:13:11 MARENGO 2020-12-10 Outpatient PEDRO LUIS, [facility] Surgery [id number] [facility] 02:17:18 STAR 2020-12-09 Outpatient PEDRO LUIS, SLE Surgery [id number] [facility] 22:29:35 MARENGO 2020-03-27 Inpatient 3 [facility] ENCPL IBAN [id number] ENCPL 12:12:00 amanda, 0121 Anavelfransisco 2019-12-05 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 [id number] SLE[facility] 20:39:00 MARIO 2019-11-05 Inpatient ER EMI PADILLA Podiatry [id number] [facility] 20:36:00 JORGITO 2019-06-14 Inpatient SLE SLEH [id number] SLEH 08:29:14 [id number] 2021-07-01 2021-07-04 Inpatient DWAINE CROWDER [facility] [id number] [place] 00:00:00 00:00:[address] 2021-05-26 2021-05-27 Office RYAN Cloud 1.2.840.114 [id number] [facility] 15:00:00 14:49:48 Visit Star Bean AMBULATOR 350.1.13.21 College Y 0.2.7.2.686 of [id number] Medi greyson 825 e 2021-05-05 2021-05-05 Office RYAN Cloud 1.2.840.114 [id number] [facility] 15:00:00 16:45:58 Visit Star A AMBULATOR 350.1.13.21 College Y 0.2.7.2.686 of [id number] [facility] greyson 825 e 2021-04-07 2021-04-07 Office RYAN CLOUD 1.2.840.114 [id number] [facility] 15:18:45 16:14:26 Visit STAR AMBULATOR 350.1.13.21 College Y 0.2.7.2.686 of [id number] [facility] greyson 825 e 2021-02-26 2021-03-16 Inpatient ER DAV HERNANDEZ [facility] Surgery [id number] [facility] 21:33:00 17:48:00 2021-02-26 2021-02-26 Outpatient [facility] [id number] [facility] 21:33:00 23:59:00 Colleg e of Medicin e 2021-02-03 2021-02-03 Office RYAN CLOUD 1.2.840.114 [id number] [facility] 13:14:52 16:33:05 Visit STAR AMBULATOR 350.1.13.21 College Y 0.2.7.2.686 of [id number] [facility] greyson 825 e 2021-01-20 2021-01-20 Office RYAN Castañeda 1.2.840.114 [id number] [facility] 10:30:00 11:39:37 Visit Clark Wilson AMBULATOR 350.1.13.21 College Y 0.2.7.2.686 of [id number] Medi [place]yson 825 e 2021-01-20 2021-01-20 Outpatient [facility] [id number] [facility] 09:42:48 11:20:43 Colleg e of Medicin e 2020-12-23 2020-12-23 Office RYAN Cloud 1.2.840.114 [id number] 92 [facility] 15:16:17 16:42:07 Visit Star A AMBULATOR 350.1.13.21 College Y 0.2.7.2.686 of [id number] [facility] greyson 825 e 2020-11-25 2020-11-25 Office RYAN Cloud 1.2.840.114 [id number] [facility] 14:15:01 16:08:45 Visit Star A AMBULATOR 350.1.13.21 College Y 0.2.7.2.686 of [id number] [facility]yson 825 e 2020-10-28 2020-10-29 Office RYAN Cloud 1.2.840.114 [id number] [facility] 16:05:09 16:10:43 Visit Star A AMBULATOR 350.1.13.21 College Y 0.2.7.2.686 of [id number] [facility] 825 e 2020-10-14 2020-10-15 Office RYAN Cloud 1.2.840.114 [id number] [facility] 15:36:26 15:08:28 Visit Star A AMBULATOR 350.1.13.21 College Y 0.2.7.2.686 of [id number] [facility]yson 825 e 2020-10-14 2020-10-14 Outpatient RYAN CASTAÑEDA [facility] [id number] [facility] 14:06:22 16:51:07 CLARK doherty of Medicin e 2020-09-16 2020-09-16 Outpatient [facility] [id number] [facility] 20:09:00 23:59:00 Amira doherty of Medicin e 2020-09-16 2020-09-16 Emergency ER SLE Emergency [id number] [facility] 18:17:00 18:17:00 2020-08-19 2020-08-19 Office RYAN Cloud 1.2.840.114 [id number] [facility] 14:57:45 16:54:41 Visit Star A AMBULATOR 350.1.13.21 College Y 0.2.7.2.686 of [id number] [facility] greyson 825 e 2020-08-05 2020-08-05 Office RYAN Cloud 1.2.840.114 [id number] [facility] 13:00:06 14:46:27 Visit Star A AMBULATOR 350.1.13.21 College Y 0.2.7.2.686 of [id number] [facility] 825 e 2020-07-22 2020-07-22 Office RYAN Cloud 1.2.840.114 [id number] [facility] 13:04:56 14:30:33 Visit Star A AMBULATOR 350.1.13.21 College Y 0.2.7.2.686 of [id number] [facility] 825 e 2020-07-03 2020-07-03 Outpatient STLMLC STLMLC [id number] NPI:174 00:00:00 00:00:00 [id number] 2020-06-26 2020-06-26 Outpatient STLMLC STLMLC [id number] NPI:174 00:00:00 00:00:00 [id number] 2020-06-24 2020-06-24 Office RYAN Cloud 1.2.840.114 [id number] [facility] 15:12:49 15:42:49 Visit Star A AMBULATOR 350.1.13.21 College Y 0.2.7.2.686 of [id number] [facility] 825 e 2020-05-27 2020-05-27 Outpatient EL SLEH [facility] [id number] [facility] 00:00:00 00:00:00 2020-05-27 2020-05-27 Outpatient EL SLEH [facility]H [id number] [facility] 00:00:00 00:00:00 2020-05-27 2020-05-27 Outpatient EL SLEH [facility]H [id number] [facility] 00:00:00 00:00:00 2020-05-26 2020-05-26 Outpatient EL SLEH [facility]H [id number] [facility] 00:00:00 00:00:00 2020-05-20 2020-05-22 Office RYAN Cloud 1.2.840.114 [id number] 15:57:14 16:30:11 Visit Star A AMBULATOR 350.1.13.21 Y 0.2.7.2.686 [id number] 825 2020-05-20 2020-05-22 Office RYAN Cloud 1.2.840.114 [id number] 29 [facility] 15:57:14 16:30:11 Visit Star A AMBULATOR 350.1.13.21 College Y 0.2.7.2.686 of [id number] [place] [address] e 2020-05-13 2020-05-13 Office RYAN Cloud 1.2.840.114 [id number] 16:12:46 17:00:07 Visit Star A AMBULATOR 350.1.13.21 Y 0.2.7.2.686 [id number] [facility] 2020-05-13 2020-05-13 Office RYAN Cloud 1.2.840.[id number] [place] [address] 16:12:46 17:00:07 Visit Tsar A AMBULATOR 350.1.13.21 College Y 0.2.7.2.686 of [id number] [place] [address] e 2020-04-29 2020-04-29 Office RYAN Cloud 1.2.840.114 [id number] 15:18:12 16:41:00 Visit Star A AMBULATOR 350.1.13.21 Y 0.2.7.2.686 [id number] [facility] 2020-04-29 2020-04-29 Office RYAN Cloud 1.2.840.[id number] [place] [address] 15:18:12 16:41:00 Visit Star A AMBULATOR 350.1.13.21 College Y 0.2.7.2.686 of [id number] [place] [address] e 2020-04-16 2020-04-16 Outpatient [place] HCAPM LABO [id number] [facility] 17:21:00 17:21:00 Keyanna Mixon [facility] 2020-04-16 2020-04-16 Outpatient [place] HCAPM LABO [id number] [facility] 17:21:00 17:21:00 Keyanna Mixon [facility] 2020-04-11 2020-04-11 [facility] [id number] [place] [address] 00:00:00 00:00:[address] HAKEEM [address] 2020-04-08 2020-04-08 Office RYAN Cloud 1.2.840.114 [id number] 15:02:21 16:42:00 Visit Star A AMBULATOR 350.1.13.21 Y 0.2.7.2.686 [id number] [facility] 2020-04-08 2020-04-08 Office RYAN Cloud 1.2.840.114 [id number] 51 [facility] 15:02:21 16:42:00 Visit Star A AMBULATOR 350.1.13.21 College Y 0.2.7.2.686 of [id number] [facility] 825 2020-04-07 2020-04-07 Outpatient ANGELINA Sánchez LABO [id number] [facility] 16:16:00 16:16:00 John [id number] [facility] 2020-03-11 2020-03-11 Outpatient BHAVESH PADILLA [facility] [id number] [facility] 18:57:00 18:57:00 JORGITO 2020-03-11 2020-03-11 Office RYAN Cloud 1.2.840.114 [id number] 14:49:58 16:51:58 Visit Star A AMBULATOR 350.1.13.21 Y 0.2.7.2.686 [id number] [facility] 2020-03-11 2020-03-11 Office RYAN Cloud 1.2.840.114 [id number] 22 [facility] 14:49:58 16:51:58 Visit Star A AMBULATOR 350.1.13.21 College Y 0.2.7.2.686 of [id number] [facility] 825 e 2020-02-27 2020-02-27 Outpatient KNOW, HCABM OPLA [id number] [facility] 19:43:00 19:43:00 DOES_NOT [id number] [facility] 2020-02-26 2020-02-26 Outpatient KNOW, HCABM OPLA [id number] [facility] 08:45:00 08:45:00 DOES_NOT [id number] [facility] 2020-02-22 2020-02-22 Outpatient KNOW, HCABM OPLA [id number] [facility] 20:50:00 20:50:00 DOES_NOT [id number] [facility] 2020-02-21 2020-02-21 Outpatient KNOW, [facility] OPLA [id number] -[id number] [facility] 20:31:00 20:31:00 DOES_NOT [id number] [facility] 2020-01-06 2020-01-06 Emergency ER [facility] Emergency [id number] [facility] 16:00:00 16:00:00 2020-01-01 2020-01-01 Office Pedro LuisRYAN 1.2.840.114 [id number] 16:15:05 16:45:39 Visit Star A AMBULATOR 350.1.13.21 Y 0.2.7.2.686 [id number] 825 2020-01-01 2020-01-01 Office Pedro Luis RYAN 1.2.840.[id number] [place] [address] 16:15:05 16:45:39 Visit Star A AMBULATOR 350.1.13.21 College Y 0.2.7.2.686 of [id number] [facility] 825 e 2020-01-01 2020-01-01 Office RYAN Castañeda 1.2.840.114 [id number] 15:18:00 16:17:05 Visit Clark Wilson AMBULATOR 350.1.13.21 Y 0.2.7.2.686 [id number] 2020-01-01 2020-01-01 Office RYAN Castañeda 1.2.840.[id number] [place] [address] 15:18:00 16:17:05 Visit Clark Wilson AMBULATOR 350.1.13.21 College Y 0.2.7.2.686 of [id number] [facility] 825 e 2019-12-05 2019-12-05 Office Pedro Luis RYAN 1.2.840.114 [id number] 13:43:23 16:06:29 Visit Star A AMBULATOR 350.1.13.21 Y 0.2.7.2.686 [id number] [facility] 2019-12-05 2019-12-05 Office Pedro LuisRYAN 1.2.840.114 [id number] 90 [facility] 13:43:23 16:06:29 Visit Star A AMBULATOR 350.1.13.21 College Y 0.2.7.2.686 of [id number] [facility] 825 e 2019-07-14 2019-11-10 Outpatient RECERTIFIC NATALIO ENCCLR ENCCLR [id number] ENCCLR 00:00:00 00:00:00 CHIOMA SEARS 2019-10-16 2019-10-16 Outpatient [facility]H [facility] [id number] [facility] 00:00:00 00:00:00 2019-10-12 2019-10-12 Outpatient EL [facility]H [facility]H [id number] [facility] 00:00:00 00:00:00 2019-10-02 2019-10-02 Office RYAN Cloud 1.2.840.114 [id number] 14:21:54 16:08:48 Visit Star A AMBULATOR 350.1.13.21 Y 0.2.7.2.686 [id number] [facility] 2019-10-02 2019-10-02 Office RYAN Cloud 1.2.840.[id number] [place] [address] 14:21:54 16:08:48 Visit Star A AMBULATOR 350.1.13.21 College Y 0.2.7.2.686 of [id number] [facility] 825 e 2019-09-12 2019-09-12 Outpatient EL SLE [facility] [id number] [facility] 00:00:00 00:00:00 2019-09-10 2019-09-10 Outpatient SLEH [facility]H [id number] [facility] 00:00:00 00:00:00 2019-09-04 2019-09-04 Office RYAN Cloud 1.2.840.114 [id number] 14:17:20 16:48:51 Visit Star A AMBULATOR 350.1.13.21 Y 0.2.7.2.686 [id number] [facility] 2019-09-04 2019-09-04 Office RYAN Cloud 1.2.840.[id number] [place] [address] 14:17:20 16:48:51 Visit Star A AMBULATOR 350.1.13.21 College Y 0.2.7.2.686 of [id number] [facility] 825 e 2019-09-04 2019-09-04 Office RYAN Castañeda 1.2.840.114 [id number] 14:17:07 16:48:39 Visit Clark Wilson AMBULATOR 350.1.13.21 Y 0.2.7.2.686 [id number] 825 2019-09-04 2019-09-04 Office RYAN Castañeda 1.2.840.[id number] [place] [address] 14:17:07 16:48:39 Visit Clark Wilson AMBULATOR 350.1.13.21 College Y 0.2.7.2.686 of [id number] [facility] 825 e 2019-08-21 2019-08-21 Office RYAN Cloud 1.2.840.114 [id number] 16:46:14 16:46:14 Visit Star A AMBULATOR 350.1.13.21 Y 0.2.7.2.686 [id number] [facility] 2019-08-21 2019-08-21 Office RYAN Cloud 1.2.840.[id number] [place] [address] 16:46:14 16:46:14 Visit Star A AMBULATOR 350.1.13.21 College Y 0.2.7.2.686 of [id number] [facility] 825 e 2019-08-07 2019-08-07 Office RYAN Cloud 1.2.840.114 [id number] 13:10:09 16:34:44 Visit Star A AMBULATOR 350.1.13.21 Y 0.2.7.2.686 [id number] [facility] 2019-08-07 2019-08-07 Office RYAN Cloud 1.2.840.[id number] [place] [address] 13:10:09 16:34:44 Visit Star A AMBULATOR 350.1.13.21 College Y 0.2.7.2.686 of [id number] [facility] 825 e 2019-07-24 2019-07-24 Office RYAN Cloud 1.2.840.114 [id number] 13:35:06 14:05:03 Visit Star A AMBULATOR 350.1.13.21 Y 0.2.7.2.686 [id number] [facility] 2019-07-24 2019-07-24 Office RYAN Cloud 1.2.840.114 [id number] 83 [facility] 13:35:06 14:05:03 Visit Star A AMBULATOR 350.1.13.21 College Y 0.2.7.2.686 of [id number] [facility] 825 e 2019-07-17 2019-07-17 Office RYAN Castañeda 1.2.840.114 [id number] 11:22:05 16:23:11 Visit Clark Wilson AMBULATOR 350.1.13.21 Y 0.2.7.2.686 [id number] [facility] 2019-07-17 2019-07-17 Office RYAN Castañeda 1.2.840.114 [id number] 31 [facility] 11:22:05 16:23:11 Visit Clark Wilson AMBULATOR 350.1.13.21 College Y 0.2.7.2.686 of [id number] [facility] 825 e 2019-07-14 2019-07-14 Outpatient RECERTIFIC NATALIO ENCCLR ENCCLR [id number] ENCCLR 00:00:00 00:00:00 CHIOMA SEARS 2019-07-10 2019-07-10 Office RYAN Cloud 1.2.840.114 [id number] 15:58:34 16:52:46 Visit Star Baen AMBULATOR 350.1.13.21 Y 0.2.7.2.686 [id number] [facility] 2019-07-10 2019-07-10 Office RYAN Cloud 1.2.840.114 [id number] 61 [facility] 15:58:34 16:52:46 Visit Star Bean AMBULATOR 350.1.13.21 College Y 0.2.7.2.686 of [id number] [facility] 825 e 2019-05-10 2019-05-10 Outpatient KYRGYZ, [facility] [id number] 000 [place] 00:00:00 00:00:00 WILMER [address] 2019-05-10 2019-05-10 Outpatient [facility] [id number] 000 [place] 00:00:00 00:00:00 WILMER [address] 2019-05-09 2019-05-09 Outpatient [facility] [id number] 969 [place] 00:00:00 00:00:00 WILMER [address] 2019-05-08 2019-05-08 Outpatient KYRGYZ, [facility] [id number] 969 [place] 00:00:00 00:00:00 WILMER Dey [facility] 2018-09-08 2018-09-08 Outpatient ANANDA [facility] 853 [id number] [place] 00:00:00 00:00:00 , ABRAHAM Alanis [facility] Results Test Description Test Time Test Comments Results Result Comments Source SARS-CoV-2 (COVID-19) RNA [Presence] in Respiratory sp ecimen by 2021-07-02 01:50:35 NANNETTE with probe detection Test Item Value Reference Range Interpretation Comme nts SARS-CoV-2 (COVID-19) RNA [Presence] in Respiratory specimen by Not detected NANNETTE with probe detection (test code = 87213-0) Whether patient is employed in a healthcare setting (test code = Un known 94360-4) Whether the patient has symptoms related to condition of interest U nknown (test code = 97721-1) Whether the patient was hospitalized for condition of interest Unkn own (test code = 17821-9) Whether the patient was admitted to intensive care unit (ICU) for U nknown condition of interest (test code = 44203-8) Whether patient resides in a congregate care setting (test code = U nknown 45810-8) status (test code = 78777-7) Unknown Date and time of symptom onset (test code = 24533-4) Unknown AFB CULTURE + SMEAR (NON-SPUTUM)2021-04-17 15:36:11 Test Item Value Reference Range Interpretation Comments CULTURE (BEAKER) (test No acid-fast bacilli code = 1095) isolated in 42 days AFB SMEAR (BEAKER) No acid fast bacilli (test code = 994) seen AFB CULTURE + SMEAR (NON-SPUTUM)2021-04-17 15:36:11 Test Item Value Reference Range Interpretation Comments CULTURE (BEAKER) (test No acid-fast bacilli code = 1095) isolated in 42 days AFB SMEAR (BEAKER) No acid fast bacilli (test code = 994) seen FUNGUS CULTURE + [id number] 00:16:15 Test Item Value Reference Range Interpretation Comments CULTURE (BEAKER) (test No fungus isolated in code = 1095) 28 days FUNGUS SMEAR (BEAKER) No fungi seen (test code = 1406) FUNGUS CULTURE + [id number] 00:16:15 Test Item Value Reference Range Interpretation Comments CULTURE (BEAKER) (test No fungus isolated in code = 1095) 28 days FUNGUS SMEAR (BEAKER) No fungi seen (test code = 1406) POCT-GLUCOSE [id number] 12:51:38 Test Item Value Reference Range Interpretation Comments POC-GLUCOSE METER 76 mg/dL 70-110 : TESTED A T [facility] 6720 (BEAKER) (test code = [facility] [place], 1538) 81299: Admissions Dean/Techni estefani ID = [id number] for Jewels Davies POCT-GLUCOSE [id number] 07:54:53 Test Item Value Reference Range Interpretation Comments POC-GLUCOSE METER 77 mg/dL 70-110 : TESTED A T [facility] 6720 (BEAKER) (test code = [facility], 1538) 30631: Admissions Dean/Techni estefani ID = [id number] for Sandie Wall BASIC METABOLIC [id number] 05:33:29 Test Item Value Reference Range Interpretation Comments SODIUM (BEAKER) 134 meq/L 136-145 L (test code = 381) POTASSIUM (BEAKER) 5.3 meq/L 3.5-5.1 H (test code = 379) CHLORIDE (BEAKER) 101 meq/L 98-107 (test code = 382) CO2 (BEAKER) (test 21 meq/L 22-29 L code = 355) BLOOD UREA NITROGEN 36 mg/dL 7-21 H (BEAKER) (test code = 354) CREATININE (BEAKER) 10.24 mg/dL 0.57-1.25 H (test code = 358) GLUCOSE RANDOM 77 mg/dL 70-105 (BEAKER) (test code = 652) CALCIUM (BEAKER) 8.2 mg/dL 8.4-10.2 L (test code = 697) EGFR (BEAKER) (test 5 mL/min/1.73 ESTIMAT ED GFR IS code = 1092) sq m NOT ACCURATE CREATININE CLEARANCE IN PREDICTING GLOMERULAR FILTRATION RATE . ESTIMATED GFR I S NOT APPLICABLE FOR DIALYSIS PATIEN TS. Admissions Dean ID - KILO GVANCOMYCIN LEVEL, [id number] 05:18:50 Test Item Value Reference Range Interpretation Comments VANCOMYCIN RANDOM (BEAKER) (test 45.9 ug/mL code = 523) Reference Range: No NormalsOperator ID - DBPOCT-GLUCOSE [id number] 21:32:38 Test Item Value Reference Range Interpretation Comments POC-GLUCOSE METER 92 mg/dL 70-110 : TESTED A T [facility] 6720 (BEAKER) (test code = [facility], 1538) 54179: Admissions Dean/Techni estefani ID = [id number] for Ramonita Amador od POCT-GLUCOSE [id number] 17:02:02 Test Item Value Reference Range Interpretation Comments POC-GLUCOSE METER 106 mg/dL 70-110 : TESTED A T [facility] 6720 (BEAKER) (test code = [facility], 1538) 93987: Admissions Dean/Techni estefani ID = [id number] for Sandie Kyle POCT-GLUCOSE [id number] 12:00:05 Test Item Value Reference Range Interpretation Comments POC-GLUCOSE METER 83 mg/dL 70-110 : TESTED A T [facility] 6720 (BEAKER) (test code = [facility], 1538) 91339: Admissions Dean/Techni estefani ID = [id number] for Sandie Wall BASIC METABOLIC [id number] 10:36:14 Test Item Value Reference Range Interpretation Comments SODIUM (BEAKER) 133 meq/L 136-145 L (test code = 381) POTASSIUM (BEAKER) 5.0 meq/L 3.5-5.1 (test code = 379) CHLORIDE (BEAKER) 99 meq/L 98-107 (test code = 382) CO2 (BEAKER) (test 22 meq/L 22-29 code = 355) BLOOD UREA NITROGEN 29 mg/dL 7-21 H (BEAKER) (test code = 354) CREATININE (BEAKER) 9.15 mg/dL 0.57-1.25 H (test code = 358) GLUCOSE RANDOM 102 mg/dL 70-105 (BEAKER) (test code = 652) CALCIUM (BEAKER) 8.0 mg/dL 8.4-10.2 L (test code = 697) EGFR (BEAKER) (test 6 mL/min/1.73 ESTIMAT ED GFR IS code = 1092) sq m NOT ACCURATE CREATININE CLEARANCE IN PREDICTING GLOMERULAR FILTRATION RATE . ESTIMATED GFR I S NOT APPLICABLE FOR DIALYSIS PATIEN TS. Admissions Dean ID - DBPOCT-GLUCOSE [id number] 07:25:42 Test Item Value Reference Range Interpretation Comments POC-GLUCOSE METER 77 mg/dL 70-110 : TESTED A T [facility] 6720 (BEAKER) (test code = [facility], 1538) 49681: Admissions Dean/Techni estefani ID = [id number] for Sandie Wall POCT-GLUCOSE [id number] 21:13:53 Test Item Value Reference Range Interpretation Comments POC-GLUCOSE METER 98 mg/dL 70-110 : TESTED A T [facility] 6720 (BEAKER) (test code = [facility], 1538) 41045: Admissions Dean/Techni estefani ID = [id number] for WILMER MCDUFFIE POCT-GLUCOSE [id number] 15:43:19 Test Item Value Reference Range Interpretation Comments POC-GLUCOSE METER 101 mg/dL 70-110 : TESTED A T [facility] 6720 (BEAKER) (test code = [facility], 1538) 92674: Admissions Dean/Techni estefani ID = [id number] for Indy Stevenson BASIC METABOLIC [id number] 13:17:24 Test Item Value Reference Range Interpretation Comments [...] S NOT APPLICABLE FOR DIALYSIS PATIEN TS. Admissions Dean ID - JAQUELINE MPOCT-GLUCOSE [id number] 12:00:02 Test Item Value Reference Range Interpretation Comments POC-GLUCOSE METER 89 mg/dL 70-110 : TESTED A T [facility] 6720 (BEAKER) (test code = [facility], [facility]8) 03428: Admissions Dean/Techni estefani ID = [id number] for Cornel venegas, Indy POCT-GLUCOSE [id number] 08:08:40 Test Item Value Reference Range Interpretation Comments POC-GLUCOSE METER 77 mg/dL 70-110 : TESTED A T [facility] 6720 (BEAKER) (test code = [facility], [facility]8) 06332: Admissions Dean/Techni estefani ID = [id number] for Cornel venegas, Indy POCT-GLUCOSE [id number] 23:32:15 Test Item Value Reference Range Interpretation Comments POC-GLUCOSE METER 84 mg/dL 70-110 : TESTED A T [facility] 6720 (BEAKER) (test code = [facility], [facility]) 17820: Admissions Dean/Techni estefani ID = [id number] for GRAH AM, KAREN POCT-GLUCOSE [id number] 17:21:27 Test Item Value Reference Range Interpretation Comments POC-GLUCOSE METER 111 mg/dL 70-110 H : TESTED A T [facility] 6720 (BEAKER) (test code = [facility], [facility]) 89990: Admissions Dean/Techni estefani ID = [id number] for MOLLY DAWKINS, ANKIT POCT-GLUCOSE [id number] 12:58:04 Test Item Value Reference Range Interpretation Comments POC-GLUCOSE METER 74 mg/dL 70-110 : TESTED A T [facility] 6720 (BEAKER) (test code = [facility], [facility]) 50943: Admissions Dean/Techni estefani ID = [id number] for KELSI PSON, ANKIT POCT-GLUCOSE [id number] 00:02:33 Test Item Value Reference Range Interpretation Comments POC-GLUCOSE METER 105 mg/dL 70-110 : TESTED A T [facility] 6720 (BEAKER) (test code = [facility], [facility]) 97884: Admissions Dean/Techni estefani ID = [id number] for GR AHAM, KAREN POCT-GLUCOSE [id number] 15:46:51 Test Item Value Reference Range Interpretation Comments POC-GLUCOSE METER 77 mg/dL 70-110 : TESTED A T [facility] 6720 (BEAKER) (test code = [facility] Jose [facility], 1538) 37061: Admissions Dean/Techni estefani ID = [id number] for ANKIT SMITH [id number] 13:53:39 Test Item Value Reference Range Interpretation Comments PHOSPHORUS (BEAKER) (test code = 5.2 mg/dL 2.3-4.7 H 604) Admissions Dean ID - DANITZA LPOCT-GLUCOSE [id number] 09:32:21 Test Item Value Reference Range Interpretation Comments POC-GLUCOSE METER 76 mg/dL 70-110 : TESTED A T [facility] 6720 (BEAKER) (test code = [facility], 1538) 55139: Admissions Dean/Techni estefani ID = [id number] for Santiago Shaw BASIC METABOLIC [id number] 04:51:29 Test Item Value Reference Range Interpretation Comments SODIUM (BEAKER) 136 meq/L 136-145 (test code = 381) POTASSIUM (BEAKER) 4.9 meq/L 3.5-5.1 (test code = 379) CHLORIDE (BEAKER) 101 meq/L 98-107 (test code = 382) CO2 (BEAKER) (test 24 meq/L 22-29 code = 355) BLOOD UREA NITROGEN 23 mg/dL 7-21 H (BEAKER) (test code = 354) CREATININE (BEAKER) 7.14 mg/dL 0.57-1.25 H (test code = 358) GLUCOSE RANDOM 79 mg/dL 70-105 (BEAKER) (test code = 652) CALCIUM (BEAKER) 8.2 mg/dL 8.4-10.2 L (test code = 697) EGFR (BEAKER) (test 8 mL/min/1.73 ESTIMAT ED GFR IS code = 1092) sq m NOT ACCURATE CREATININE CLEARANCE IN PREDICTING GLOMERULAR FILTRATION RATE . ESTIMATED GFR I S NOT APPLICABLE FOR DIALYSIS PATIEN TS. Admissions Dean ID - BASSEM WCBC W/PLT COUNT & AUTO [id number] 04:35:39 Test Item Value Reference Range Interpretation Comments WHITE BLOOD CELL COUNT (BEAKER) 7.1 K/ L 3.5-10.5 (test code = 775) RED BLOOD CELL COUNT (BEAKER) 3.30 M/ L 4.63-6.08 L (test code = 761) HEMOGLOBIN (BEAKER) (test code = 8.8 GM/DL 13.7-17.5 L 410) HEMATOCRIT (BEAKER) (test code = 30.5 % 40.1-51.0 L 411) MEAN CORPUSCULAR VOLUME [...] (test code = 432) BASOPHILS RELATIVE PERCENT 2 % (BEAKER) (test code = 437) NEUTROPHILS ABSOLUTE COUNT 4.24 K/ L 1.78-5.38 (BEAKER) (test code = 670) LYMPHOCYTES ABSOLUTE COUNT 1.36 K/ L 1.32-3.57 (BEAKER) (test code = 414) MONOCYTES ABSOLUTE COUNT (BEAKER) 0.63 K/ L 0.30-0.82 (test code = 415) EOSINOPHILS ABSOLUTE COUNT 0.77 K/ L 0.04-0.54 H (BEAKER) (test code = 416) BASOPHILS ABSOLUTE COUNT (BEAKER) 0.12 K/ L 0.01-0.08 H (test code = 417) IMMATURE GRANULOCYTES-RELATIVE 0 % 0-1 PERCENT (BEAKER) (test code = 2801) POCT-GLUCOSE [id number] 21:21:08 Test Item Value Reference Range Interpretation Comments POC-GLUCOSE METER 116 mg/dL 70-110 H : [facility] (test code = [facility], 1538) 99168: Admissions Dean/Techni estefani ID = [id number] for SAHMEKA ENRIQUEZ POCT-GLUCOSE [id number] 16:51:43 Test Item Value Reference Range Interpretation Comments POC-GLUCOSE METER 97 mg/dL 70-110 : TESTED A T [facility] 6720 (BEAKER) (test code = [facility], 1538) 86447: Admissions Dean/Techni estefani ID = [id number] for ANKIT SMITH POCT-GLUCOSE [id number] 12:04:32 Test Item Value Reference Range Interpretation Comments POC-GLUCOSE METER 93 mg/dL 70-110 : TESTED A T [facility] 6720 (BEAKER) (test code = [facility], 1538) 90646: Admissions Dean/Techni estefani ID = [id number] for KELSI HEMANT ANKIT SARS-COV2/RT-PCR ([facility])2021-03-11 10:47:57 Test Item Value Reference Range Interpretation Comments SARS-COV2/RT-PCR (test Negative Not Detected, Negative, code = 1505156) See external report for linked test SARS-COV-2 PERFORM[facility] (test code = 5437146) Negative result for this test determines that [...] 564(g) of the Act.Fact Sheet for Healthcare Providers:https://www.[employer]/sites/default/files/product/documents/Fact_Shee h_KU_Eksxamvqz_Llfv_DKAZ-CuL-3.pdfFact Sheet for Healthcare Patients:https://www.[employer]/sites/default/files/product/ documents/Jzxg_Oewtt_Wbmyufhf_Ekxm_ERQA-RvD-6.pdfPerforming Laboratory:[facility], [place] [address]DVCW-CCHPQPC METER 2021-03-11 07:26:03 Test Item Value Reference Range Interpretation Comments POC-GLUCOSE METER 81 mg/dL 70-110 : TESTED A T [facility] 6720 (BEAKER) (test code = DASIA Garcia [facility], 1538) 68421: Admissions Dean/Techni estefani ID = [id number] for ANKIT SMITH CBC W/PLT COUNT & AUTO [id number] 05:24:05 Test Item Value Reference Range Interpretation Comments WHITE BLOOD CELL COUNT (BEAKER) 7.5 K/ L 3.5-10.5 (test code = 775) RED BLOOD CELL COUNT (BEAKER) 3.17 M/ L 4.63-6.08 L (test code = 761) HEMOGLOBIN (BEAKER) (test code = 8.4 GM/DL 13.7-17.5 L 410) HEMATOCRIT (BEAKER) (test code = 27.6 % 40.1-51.0 L 411) MEAN CORPUSCULAR VOLUME (BEAKER) 87.1 fL 79.0-92.2 (test code = 753) MEAN CORPUSCULAR HEMOGLOBIN 26.5 pg 25.7-32.2 (BEAKER) (test code = 751) MEAN CORPUSCULAR HEMOGLOBIN CONC 30.4 GM/DL 32.3-36.5 L (BEAKER) (test code = 752) RED CELL DISTRIBUTION WIDTH 17.4 % 11.6-14.4 H (BEAKER) (test code = 412) PLATELET COUNT (BEAKER) (test 333 K/CU MM 150-450 code = 756) MEAN PLATELET VOLUME (BEAKER) 9.1 fL 9.4-12.4 L (test code = 754) NUCLEATED RED BLOOD CELLS 0 /100 WBC 0-0 (BEAKER) (test code = 413) NEUTROPHILS RELATIVE PERCENT 57 % (BEAKER) (test code = 429) LYMPHOCYTES RELATIVE PERCENT 21 % (BEAKER) (test code = 430) MONOCYTES RELATIVE PERCENT 10 % (BEAKER) (test code = 431) EOSINOPHILS RELATIVE PERCENT 10 % (BEAKER) (test code = 432) BASOPHILS RELATIVE PERCENT 2 % (BEAKER) (test code = 437) NEUTROPHILS ABSOLUTE COUNT 4.28 K/ L 1.78-5.38 (BEAKER) (test code = 670) LYMPHOCYTES ABSOLUTE COUNT 1.57 K/ L 1.32-3.57 (BEAKER) (test code = 414) MONOCYTES ABSOLUTE COUNT (BEAKER) 0.72 K/ L 0.30-0.82 (test code = 415) EOSINOPHILS ABSOLUTE COUNT 0.78 K/ L 0.04-0.54 H (BEAKER) (test code = 416) BASOPHILS ABSOLUTE COUNT (BEAKER) 0.14 K/ L 0.01-0.08 H (test code = 417) IMMATURE GRANULOCYTES-RELATIVE 0 % 0-1 PERCENT (BEAKER) (test code = 2801) POCT-GLUCOSE [id number] 20:58:34 Test Item Value Reference Range Interpretation Comments POC-GLUCOSE METER 123 mg/dL 70-110 H : TESTED A T [facility] 6720 (BEAKER) (test code = [facility] [place], 1538) 19410: Admissions Dean/Techni estefani ID = [id number] for Melody Mcintosh POCT-GLUCOSE [id number] 15:56:05 Test Item Value Reference Range Interpretation Comments POC-GLUCOSE METER 88 mg/dL 70-110 : TESTED A T [facility] 6720 (BEAKER) (test code = [facility] [place], 1538) 84833: Admissions Dean/Techni estefani ID = [id number] for ANJELICAESTEBAN-NII JORDAN CBC W/PLT COUNT & AUTO [id number] 05:41:29 Test Item Value Reference Range Interpretation Comments WHITE BLOOD CELL COUNT (BEAKER) 7.4 K/ L 3.5-10.5 (test code = 775) RED BLOOD CELL COUNT (BEAKER) 3.30 M/ L 4.63-6.08 L (test code = 761) HEMOGLOBIN (BEAKER) (test code = 8.7 GM/DL 13.7-17.5 L 410) HEMATOCRIT (BEAKER) (test code = 29.1 % 40.1-51.0 L 411) MEAN CORPUSCULAR VOLUME (BEAKER) 88.2 fL 79.0-92.2 (test code = 753) MEAN CORPUSCULAR HEMOGLOBIN 26.4 pg 25.7-32.2 (BEAKER) (test code = 751) MEAN CORPUSCULAR HEMOGLOBIN CONC 29.9 GM/DL 32.3-36.5 L (BEAKER) (test code = 752) RED CELL DISTRIBUTION WIDTH 17.2 % 11.6-14.4 H (BEAKER) (test code = 412) PLATELET COUNT (BEAKER) (test 364 K/CU MM 150-450 code = 756) MEAN [...] (test code = 432) BASOPHILS RELATIVE PERCENT 2 % (BEAKER) (test code = 437) NEUTROPHILS ABSOLUTE COUNT 4.49 K/ L 1.78-5.38 (BEAKER) (test code = 670) LYMPHOCYTES ABSOLUTE COUNT 1.40 K/ L 1.32-3.57 (BEAKER) (test code = 414) MONOCYTES ABSOLUTE COUNT (BEAKER) 0.58 K/ L 0.30-0.82 (test code = 415) EOSINOPHILS ABSOLUTE COUNT 0.72 K/ L 0.04-0.54 H (BEAKER) (test code = 416) BASOPHILS ABSOLUTE COUNT (BEAKER) 0.15 K/ L 0.01-0.08 H (test code = 417) IMMATURE GRANULOCYTES-RELATIVE 0 % 0-1 PERCENT (BEAKER) (test code = 2801) BASIC METABOLIC [id number] 05:37:30 Test Item Value Reference Range Interpretation Comments SODIUM (BEAKER) 137 meq/L 136-145 (test code = 381) POTASSIUM (BEAKER) 4.9 meq/L 3.5-5.1 (test code = 379) CHLORIDE (BEAKER) 100 meq/L 98-107 (test code = 382) CO2 (BEAKER) (test 26 meq/L 22-29 code = 355) BLOOD UREA NITROGEN 28 mg/dL 7-21 H (BEAKER) (test code = 354) CREATININE (BEAKER) 7.68 mg/dL 0.57-1.25 H (test code = 358) GLUCOSE RANDOM 77 mg/dL 70-105 (BEAKER) (test code = 652) CALCIUM (BEAKER) 8.1 mg/dL 8.4-10.2 L (test code = 697) EGFR (BEAKER) (test 7 mL/min/1.73 ESTIMAT ED GFR IS code = 1092) sq m NOT ACCURATE CREATININE CLEARANCE IN PREDICTING GLOMERULAR FILTRATION RATE . ESTIMATED GFR I S NOT APPLICABLE FOR DIALYSIS PATIEN TS. Admissions Dean ID - JAQUELINE MPOCT-GLUCOSE [id number] 03:58:58 Test Item Value Reference Range Interpretation Comments POC-GLUCOSE METER 90 mg/dL 70-110 : TESTED A T [facility] 6720 (BEAKER) (test code = [facility], 1538) 73132: Admissions Dean/Techni estefani ID = [id number] for ONUO WEEMS, ANTONY POCT-GLUCOSE [id number] 18:01:23 Test Item Value Reference Range Interpretation Comments POC-GLUCOSE METER 80 mg/dL 70-110 : TESTED A T [facility] 6720 (BEAKER) (test code = [facility], 1538) 86773: Admissions Dean/Techni estefani ID = [id number] for TYRA CONRAD TISSUE [id number] 12:20:52Surgical Pathology Report Case: [id number] Authorizing Provider: Star Cloud DPM Collected: 03/02/2021 03:11 PM Ordering Location: [address] Received: 03/02/2021 04:39 PM Service Pathologist: Liz Branham MD Specimen: Bone, Right achilles tendon/bone fragment for ID A. BONE, RIGHT ACHILLES TENDON, DEBRIDEMENT: - ACUTE OSTEOMYELITIS WITH FIBRINOPURULENT EXUDATE. Signing Pathologist Direct Phone Line: [phone] signed by Liz Branham MD on 03/09/2021 at 12:20 [id number], [id number] Acute hematogenous osteomyelitis of right foot BoneReceived fresh labeled the patient's name, accession number and "right Achilles tendon/bone fragment" are 3 fragments of gardner-red, trabeculated bone with adherent green-black, necrotic skin and soft tissue ranging from 1.5-2.0 cm in greatest dimension. The cut surface is gardner- yellow, trabeculated and firm. Mill Order Scheduler sections are submitted as follows:Section imkjS2-S0-kxppuj bone fragments following decalcificationA6-skin and soft tissuePilar LEW Caraballo HT (ASCP)Performed.The interpretation of this case included the use of immunohistochemistry or special stains.Control Slides Examined: In-house known positive controls were evaluated along with the test tissue. These control slides run alongside of the patients sample show appropriate staining. Internal positive and negative controls when available are evaluated Immunohistochemistry technical testing was performed at [facility], Pathology Laboratory whereit was developed and its performance characteristics were determined. It has not been cleared or approved by the U.S. Food and Drug Administration. The FDA has determined that such clearance or approval is not necessary. The test is used for clinical purposes. It should not be regarded as investigational or for research. This laboratory is certified under the Clinical Laboratory Improvement Amendments of 1988 (CLIA- 88) as qualified to perform high complexity clinical laboratory testing.[facility], Department of Pathology, [address] [place] [address], [facility], [address] [place] [address], [facility], [facility], [address] [place] [address], IDYE-GLUCOSE [id number] 11:21:42 Test Item Value Reference Range Interpretation Comments POC-GLUCOSE METER 102 mg/dL 70-110 : TESTED A T [facility] 6720 (BEAKER) (test code = [facility], 1538) 13237: Admissions Dean/Techni estefani ID = [id number] for Indy Stevenson POCT-GLUCOSE [id number] 07:24:40 Test Item Value Reference Range Interpretation Comments POC-GLUCOSE METER 69 mg/dL 70-110 L : TESTED A T [facility] 6720 (BEAKER) (test code = [facility], 1538) 40002: Admissions Dean/Techni estefani ID = [id number] for Indy Hodgson BASIC METABOLIC [id number] 07:05:47 Test Item Value Reference Range Interpretation Comments [...] S NOT APPLICABLE FOR DIALYSIS PATIEN TS. Admissions Dean ID - JAQUELINE MPOCT-GLUCOSE [id number] 21:01:43 Test Item Value Reference Range Interpretation Comments POC-GLUCOSE METER 104 mg/dL 70-110 : TESTED A T [facility] 6720 (BEAKER) (test code = [facility], 1538) 16241: Admissions Dean/Techni estefani ID = [id number] for KAREN JULIAN POCT-GLUCOSE [id number] 15:35:38 Test Item Value Reference Range Interpretation Comments POC-GLUCOSE METER 128 mg/dL 70-110 H : TESTED A T [facility] 6720 (BEAKER) (test code = [facility], 1538) 59595: Admissions Dean/Techni estefani ID = [id number] for Jewels Tavarez ANAEROBIC [id number] 14:26:15 Test Item Value Reference Range Interpretation Comments CULTURE (BEAKER) (test No anaerobes isolated code = 1095) ANAEROBIC [id number] 14:22:02 Test Item Value Reference Range Interpretation Comments CULTURE (BEAKER) (test No anaerobes isolated code = 1095) [id number] 12:05:50 Test Item Value Reference Range Interpretation Comments PHOSPHORUS (BEAKER) (test code = 6.0 mg/dL 2.3-4.7 H 604) Admissions Dean ID - DANITZA LPOCT-GLUCOSE [id number] 11:25:46 Test Item Value Reference Range Interpretation Comments POC-GLUCOSE METER 93 mg/dL 70-110 : TESTED A T [facility] 6720 (BEAKER) (test code = [facility], 1538) 58820: Admissions Dean/Techni estefani ID = [id number] for Jewels Davies POCT-GLUCOSE [id number] 07:29:21 Test Item Value Reference Range Interpretation Comments POC-GLUCOSE METER 84 mg/dL 70-110 : TESTED A T [facility] 6720 (BEAKER) (test code = [facility], 1538) 56274: Admissions Dean/Techni estefani ID = [id number] for Tez tao Jewels BASIC METABOLIC [id number] 05:48:13 Test Item Value Reference Range Interpretation Comments SODIUM (BEAKER) 137 meq/L 136-145 (test code = 381) POTASSIUM (BEAKER) 4.7 meq/L 3.5-5.1 (test code = 379) CHLORIDE (BEAKER) 96 meq/L 98-107 L (test code = 382) CO2 (BEAKER) (test 27 meq/L 22-29 code = 355) BLOOD UREA NITROGEN 35 mg/dL 7-21 H (BEAKER) (test code = 354) CREATININE (BEAKER) 8.46 mg/dL 0.57-1.25 H (test code = 358) GLUCOSE RANDOM 83 mg/dL 70-105 (BEAKER) (test code = 652) CALCIUM (BEAKER) 7.9 mg/dL 8.4-10.2 L (test code = 697) EGFR (BEAKER) (test 6 mL/min/1.73 ESTIMAT ED GFR IS code = 1092) sq m NOT ACCURATE CREATININE CLEARANCE IN PREDICTING GLOMERULAR FILTRATION RATE . ESTIMATED GFR I S NOT APPLICABLE FOR DIALYSIS PATIEN TS. Admissions Dean ID - DANITZA LVANCOMYCIN LEVEL, [id number] 05:13:36 Test Item Value Reference Range Interpretation Comments VANCOMYCIN RANDOM ([facility]) (test 18.4 ug/mL code = 523) Reference Range: No NormalsOperator ID - DANITZA LPOCT-GLUCOSE [id number] 21:23:17 Test Item Value Reference Range Interpretation Comments POC-GLUCOSE METER 118 mg/dL 70-110 H : TESTED A T [facility] 6720 ([facility]) (test code = [facility], 1538) 80865: Admissions Dean/Techni estefani ID = [id number] for ES ABDULLAHI, ORION POCT-GLUCOSE [id number] 16:22:46 Test Item Value Reference Range Interpretation Comments POC-GLUCOSE METER 94 mg/dL 70-110 : TESTED A T [facility] ([facility]) (test code = [facility], 1538) [id number]: Admissions Dean/Techni estefani ID = [id number] for KELSI PSON, ANKIT POCT-GLUCOSE [id number] 12:19:51 Test Item Value Reference Range Interpretation Comments POC-GLUCOSE METER 97 mg/dL 70-110 : TESTED A T [facility] ([facility]) (test code = [facility], 1538) [id number]: Admissions Dean/Techni estefani ID = [id number] for KELSI PSON, ANKIT POCT-GLUCOSE [id number] 08:48:25 Test Item Value Reference Range Interpretation Comments POC-GLUCOSE METER 70 mg/dL 70-110 : TESTED A T [facility] ([facility]) (test code = [facility], 1538) 39070: Admissions Dean/Techni estefani ID = [id number] for ANKIT SMITH CBC W/PLT COUNT & AUTO [id number] 06:55:44 Test Item Value Reference Range Interpretation Comments WHITE BLOOD CELL COUNT (BEAKER) 7.4 K/ L 3.5-10.5 (test code = 775) RED BLOOD CELL COUNT (BEAKER) 3.03 M/ L 4.63-6.08 L (test code = 761) HEMOGLOBIN (BEAKER) (test code = 7.9 GM/DL 13.7-17.5 L 410) HEMATOCRIT (BEAKER) (test code = 25.9 % 40.1-51.0 L 411) MEAN CORPUSCULAR VOLUME (BEAKER) 85.5 fL 79.0-92.2 (test code = 753) MEAN CORPUSCULAR HEMOGLOBIN 26.1 pg 25.7-32.2 (BEAKER) (test code = 751) MEAN CORPUSCULAR HEMOGLOBIN CONC 30.5 GM/DL 32.3-36.5 L (BEAKER) (test code = 752) RED CELL DISTRIBUTION WIDTH 17.0 % 11.6-14.4 H (BEAKER) (test code = 412) PLATELET COUNT (BEAKER) (test 310 K/CU MM 150-450 code = 756) MEAN PLATELET VOLUME (BEAKER) 9.5 fL 9.4-12.4 (test code = 754) NUCLEATED RED BLOOD CELLS 0 /100 WBC 0-0 (BEAKER) (test code = 413) NEUTROPHILS RELATIVE PERCENT 62 % (BEAKER) (test code = 429) LYMPHOCYTES RELATIVE PERCENT 19 % (BEAKER) (test code = 430) MONOCYTES RELATIVE PERCENT 8 % (BEAKER) (test code = 431) EOSINOPHILS RELATIVE PERCENT 10 % (BEAKER) (test code = 432) BASOPHILS RELATIVE PERCENT 1 % (BEAKER) (test code = 437) NEUTROPHILS ABSOLUTE COUNT 4.54 K/ L 1.78-5.38 (BEAKER) (test code = 670) LYMPHOCYTES ABSOLUTE COUNT 1.41 K/ L 1.32-3.57 (BEAKER) (test code = 414) MONOCYTES ABSOLUTE COUNT (BEAKER) 0.57 K/ L 0.30-0.82 (test code = 415) EOSINOPHILS ABSOLUTE COUNT 0.72 K/ L 0.04-0.54 H (BEAKER) (test code = 416) BASOPHILS ABSOLUTE COUNT (BEAKER) 0.10 K/ L 0.01-0.08 H (test code = 417) IMMATURE GRANULOCYTES-RELATIVE 0 % 0-1 PERCENT (BEAKER) (test code = 2801) VANCOMYCIN LEVEL, [id number] 06:02:23 Test Item Value Reference Range Interpretation Comments VANCOMYCIN TROUGH (BEAKER) (test 19.2 ug/mL 10.0-20.0 code = 522) Admissions Dean ID - JAQUELINE MPOCT-GLUCOSE [id number] 21:00:17 Test Item Value Reference Range Interpretation Comments POC-GLUCOSE METER 79 mg/dL 70-110 : TESTED A T [facility] 6720 (BEAKER) (test code = [facility], 153) 40608: Admissions Dean/Techni estefani ID = [id number] for SHAMEKA MOLINA POCT-GLUCOSE [id number] 16:13:51 Test Item Value Reference Range Interpretation Comments POC-GLUCOSE METER 112 mg/dL 70-110 H : TESTED A T [facility] 6720 (BEAKER) (test code = [facility], 153) 99752: Admissions Dean/Techni estefani ID = [id number] for FAISAL, NII POCT-GLUCOSE [id number] 12:21:34 Test Item Value Reference Range Interpretation Comments POC-GLUCOSE METER 84 mg/dL 70-110 : TESTED A T [facility] 6720 (BEAKER) (test code = [facility], 153) 37781: Admissions Dean/Techni estefani ID = [id number] for FAISAL, NII POCT-GLUCOSE [id number] 08:29:43 Test Item Value Reference Range Interpretation Comments POC-GLUCOSE METER 84 mg/dL 70-110 : TESTED A T [facility] 6720 (BEAKER) (test code = [facility], 153) 52242: Admissions Dean/Techni estefani ID = [id number] for FAISAL, NII BASIC METABOLIC [id number] 07:10:22 Test Item Value Reference Range Interpretation Comments SODIUM (BEAKER) 134 meq/L 136-145 L (test code = 381) POTASSIUM (BEAKER) 4.8 meq/L 3.5-5.1 Specimen slightly (test code = 379) hemolyzed CHLORIDE (BEAKER) 95 meq/L 98-107 L (test code = 382) CO2 (BEAKER) (test 24 meq/L 22-29 code = 355) BLOOD UREA NITROGEN 41 mg/dL 7-21 H (BEAKER) (test code = 354) CREATININE (BEAKER) 8.25 mg/dL 0.57-1.25 H Specimen slightly (test code = 358) hemolyzed GLUCOSE RANDOM 79 mg/dL 70-105 (BEAKER) (test code = 652) CALCIUM (BEAKER) 8.0 mg/dL 8.4-10.2 L (test code = 697) EGFR (BEAKER) (test 7 mL/min/1.73 ESTIMAT ED GFR IS code = 1092) sq m NOT ACCURATE CREATININE CLEARANCE IN PREDICTING GLOMERULAR FILTRATION RATE . ESTIMATED GFR I S NOT APPLICABLE FOR DIALYSIS PATIEN TS. Admissions Dean ID - PIAYA LCBC W/PLT COUNT & AUTO [id number] 06:40:33 Test Item Value Reference Range Interpretation Comments WHITE BLOOD CELL COUNT (BEAKER) 8.4 K/ L 3.5-10.5 (test code = 775) RED BLOOD CELL COUNT (BEAKER) 2.95 M/ L 4.63-6.08 L (test code = 761) HEMOGLOBIN (BEAKER) (test code = 7.8 GM/DL 13.7-17.5 L 410) HEMATOCRIT (BEAKER) (test code = 26.2 % 40.1-51.0 L 411) MEAN CORPUSCULAR VOLUME (BEAKER) 88.8 fL 79.0-92.2 (test code = 753) MEAN CORPUSCULAR HEMOGLOBIN 26.4 pg 25.7-32.2 (BEAKER) (test code = 751) MEAN CORPUSCULAR HEMOGLOBIN CONC 29.8 GM/DL 32.3-36.5 L (BEAKER) (test code = 752) RED CELL DISTRIBUTION WIDTH 16.8 % 11.6-14.4 H (BEAKER) (test code = 412) PLATELET COUNT (BEAKER) (test 272 K/CU MM 150-450 code = 756) MEAN PLATELET VOLUME (BEAKER) 9.5 fL 9.4-12.4 (test code = 754) NUCLEATED RED BLOOD CELLS 0 /100 WBC 0-0 (BEAKER) (test code = 413) NEUTROPHILS RELATIVE PERCENT 60 % (BEAKER) (test code = 429) LYMPHOCYTES RELATIVE PERCENT 21 % (BEAKER) (test code = 430) MONOCYTES RELATIVE PERCENT 8 % (BEAKER) (test code = 431) EOSINOPHILS RELATIVE PERCENT 9 % (BEAKER) (test code = 432) BASOPHILS RELATIVE PERCENT 1 % (BEAKER) (test code = 437) NEUTROPHILS ABSOLUTE COUNT 5.04 K/ L 1.78-5.38 (BEAKER) (test code = 670) LYMPHOCYTES ABSOLUTE COUNT 1.79 K/ L 1.32-3.57 (BEAKER) (test code = 414) MONOCYTES ABSOLUTE COUNT (BEAKER) 0.71 K/ L 0.30-0.82 (test code = 415) EOSINOPHILS ABSOLUTE COUNT 0.72 K/ L 0.04-0.54 H (BEAKER) (test code = 416) BASOPHILS ABSOLUTE COUNT (BEAKER) 0.12 K/ L 0.01-0.08 H (test code = 417) IMMATURE GRANULOCYTES-RELATIVE 0 % 0-1 PERCENT (BEAKER) (test code = 2801) POCT-GLUCOSE [id number] 21:18:36 Test Item Value Reference Range Interpretation Comments POC-GLUCOSE METER 110 mg/dL 70-110 : TESTED A T [facility] 6720 (BEAKER) (test code = [facility], 1538) 38368: Admissions Dean/Techni estefani ID = [id number] for Marilin hall Ramonita POCT-GLUCOSE [id number] 16:23:36 Test Item Value Reference Range Interpretation Comments POC-GLUCOSE METER 138 mg/dL 70-110 H : TESTED A T [facility] 6720 (BEAKER) (test code = [facility], 1538) 05002: Admissions Dean/Techni estefani ID = [id number] for Aure Teran SARS-COV2/RT-PCR ([facility])2021-03-05 11:06:00 Test Item Value Reference Range Interpretation Comments SARS-COV2/RT-PCR (test code = Negative Negative [id number]) Negative result for this test determines that [...] occur if a specimen is improperly collected, transported, or handled. A false negative result should be considered if patient's recent exposures or clinical presentation indicate that COVID-19 (SARS-CoV-2) is likely and diagnostic tests for other causes of illness are negative. Re-testing should be considered in cases of suspected false negatives.The limit of detection for this assay is 100 copies/mL.This SARS-CoV-2 test is a real-time RT_PCR test intended for the qualitative detection of [...] under Section 564(g) of the Act.Testing was performedusing the Giles SARS-CoV-2 assay.Fact Sheet for Healthcare Providers:https://www.molecular.giles/ari/RT SARS-CoV-2 HCP Fact Sheet 51- 089560.pdfFact Sheet for Healthcare Patients:https://www.molecular.giles/ari/RT SARS-CoV-2 Patient Fact Sheet EN 51-377958H4.pdfSURGICALLY OBTAINED CULTURE + GRAM [id number] 09:04:09 Test Item Value Reference Interpretation Comments Range CULTURE (Bell BiosystemsAKER) A 4+ Coryneba cterium (test code = 1095) species CULTURE (Bell BiosystemsAKER) STAPHYLOCOCCUS A 4+ Staphy lococcus (test code = 1095) AUREUS aureus Clindamycin (test R code = 10) Erythromycin (test R code = 4) Linezolid (test code S = 40) Nitrofurantoin (test S code = 23) Oxacillin (test code S = 14) Rifampin (test code S = 43) Tetracycline (test R code = 2) Trimethoprim + S Sulfamethoxazole (test code = 47) Vancomycin (test S code = 13) GRAM STAIN RESULT <1+ WBCs (BEAKER) (test code = 1123) GRAM STAIN RESULT 1+ gram positive (BEAKER) (test code rods = 118483) GRAM STAIN RESULT <1+ gram positive (BEAKER) (test code cocci in pairs = 528839) SURGICALLY OBTAINED CULTURE + GRAM [id number] 09:01:34 Test Item Value Reference Interpretation Comments Range CULTURE (BEAKER) PSEUDOMONAS A 2+ Pseudomo ornda (test code = 1095) AERUGINOSA aeruginos a Amikacin (test code See_Comment S [Automa doris = 1) message] The sy stem which generated this result transmitted reference range : Susceptible 0-1 6 , Resistant <0 or >16 . The reference range was not u sed to interpret th is result as normal/abnormal . Aztreonam (test code See_Comment R [Autom ated = 32) message] The sy stem which [...] is result as normal/abnormal . Doripenem (test code See_Comment R [Autom ated = 100) message] The sy stem which [...] R [Autom ated = 34) message] The sy stem which [...] is result as normal/abnormal . CULTURE (BEAKER) A 2+ Beta-hem olytic (test code = 1095) streptoco ccus group G, by serologic al grouping CULTURE (Bell [employer]AKER) STAPHYLOCOCCUS A 3+ Staphy lococcus (test code = 1095) AUREUS aureus Clindamycin (test S code = 10) Erythromycin (test S code = 4) Linezolid (test code S = 40) Nitrofurantoin (test S code = 23) Oxacillin (test code S = 14) Rifampin (test code S = 43) Tetracycline (test S code = 2) Trimethoprim + S Sulfamethoxazole (test code = 47) Vancomycin (test S code = 13) CULTURE (BEAKER) ENTEROCOCCUS A 3+ Enteroco ccus (test code = 1095) FAECALIS faecalis Ampicillin (test S code = 26) Linezolid (test code S = 40) Vancomycin (test S code = 13) CULTURE (BEAKER) A 4+ Coryneba cterium (test code = 1095) species GRAM STAIN RESULT <1+ WBCs (BEAKER) (test code = 1123) GRAM STAIN RESULT 1+ gram positive (BEAKER) (test code rods = 416522) GRAM STAIN RESULT 1+ gram positive (BEAKER) (test code cocci in chains = 742163) and pairs RAD, FOOT, 2 VIEWS, [id number] 06:55:00Is this procedure to be performed with weight bearing?->Non-Weight BearingReason for exam:->post op revision of post TMA, bone resection psoterior calceaus and forefoot.Should this be performed at the bedside?[facility] 1960 Sex: MFINAL REPORT RAD, FOOT, 2 VIEWS, RIGHT INDICATION: post op revision of postTMA, bone resection psoterior calceaus and forefoot. COMPARISON: February 29, 2020 TECHNIQUE: Limited lateral and oblique views of the right foot. 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 Osseous resection posterior to the calcaneus is present with bandage wound. Stable dense arterial calcifications. No additional osseous change. Signed: JR Cuate, Hali Laughlinort Verified Date/Time: 03/05/2021 06:55:23 Reading Location: [facility] Radiology Reading Room CBC W/PLT COUNT & AUTO [id number] 04:59:49 Test Item Value Reference Range Interpretation Comments WHITE BLOOD CELL COUNT (BEAKER) 6.8 K/ L 3.5-10.5 (test code = 775) RED BLOOD CELL COUNT (BEAKER) 3.14 M/ L 4.63-6.08 L (test code = 761) HEMOGLOBIN (BEAKER) (test code = 8.1 GM/DL 13.7-17.5 L 410) HEMATOCRIT (BEAKER) (test code = 27.7 % 40.1-51.0 L 411) MEAN CORPUSCULAR VOLUME (BEAKER) 88.2 fL 79.0-92.2 (test code = 753) MEAN CORPUSCULAR HEMOGLOBIN 25.8 pg 25.7-32.2 (BEAKER) (test code = 751) MEAN CORPUSCULAR HEMOGLOBIN CONC 29.2 GM/DL 32.3-36.5 L (BEAKER) (test code = 752) RED CELL DISTRIBUTION WIDTH 16.8 % 11.6-14.4 H (BEAKER) (test code = 412) PLATELET COUNT (BEAKER) (test 271 K/CU MM 150-450 code = 756) MEAN PLATELET VOLUME (BEAKER) 9.9 fL 9.4-12.4 (test code = 754) NUCLEATED RED BLOOD CELLS 0 /100 WBC 0-0 (BEAKER) (test code = 413) NEUTROPHILS RELATIVE PERCENT 58 % (BEAKER) (test code = 429) LYMPHOCYTES RELATIVE PERCENT 21 % (BEAKER) (test code = 430) MONOCYTES RELATIVE PERCENT 9 % (BEAKER) (test code = 431) EOSINOPHILS RELATIVE PERCENT 11 % (BEAKER) (test code = 432) BASOPHILS RELATIVE PERCENT 2 % (BEAKER) (test code = 437) NEUTROPHILS ABSOLUTE COUNT 3.97 K/ L 1.78-5.38 (BEAKER) (test code = 670) LYMPHOCYTES ABSOLUTE COUNT 1.41 K/ L 1.32-3.57 (BEAKER) (test code = 414) MONOCYTES ABSOLUTE COUNT (BEAKER) 0.61 K/ L 0.30-0.82 (test code = 415) EOSINOPHILS ABSOLUTE COUNT 0.72 K/ L 0.04-0.54 H (BEAKER) (test code = 416) BASOPHILS ABSOLUTE COUNT (BEAKER) 0.10 K/ L 0.01-0.08 H (test code = 417) IMMATURE GRANULOCYTES-RELATIVE 0 % 0-1 PERCENT (BEAKER) (test code = 2801) BASIC METABOLIC [id number] 04:59:02 Test Item Value Reference Range Interpretation Comments SODIUM (BEAKER) 137 meq/L 136-145 (test code = 381) POTASSIUM (BEAKER) 4.4 meq/L 3.5-5.1 (test code = 379) CHLORIDE (BEAKER) 98 meq/L 98-107 (test code = 382) CO2 (BEAKER) (test 29 meq/L 22-29 code = 355) BLOOD UREA NITROGEN 30 mg/dL 7-21 H (BEAKER) (test code = 354) CREATININE (BEAKER) 6.28 mg/dL 0.57-1.25 H (test code = 358) GLUCOSE RANDOM 85 mg/dL 70-105 (BEAKER) (test code = 652) CALCIUM (BEAKER) 8.2 mg/dL 8.4-10.2 L (test code = 697) EGFR (BEAKER) (test 9 mL/min/1.73 ESTIMAT ED GFR IS code = 1092) sq m NOT ACCURATE CREATININE CLEARANCE IN PREDICTING GLOMERULAR FILTRATION RATE . ESTIMATED GFR I S NOT APPLICABLE FOR DIALYSIS PATIEN TS. Admissions Dean ID - PIZAYRA LVANCOMYCIN LEVEL, [id number] 04:48:13 Test Item Value Reference Range Interpretation Comments VANCOMYCIN RANDOM (BEAKER) (test 15.8 ug/mL code = 523) Reference Range: No NormalsOperator ID - DANITZA LPOCT-GLUCOSE [id number] 04:08:20 Test Item Value Reference Range Interpretation Comments POC-GLUCOSE METER 89 mg/dL 70-110 : TESTED A T [facility] 6720 (BEAKER) (test code = [facility] [place], 1538) 59428: Admissions Dean/Techni estefani ID = [id number] for GRAH AM, KAREN BASIC METABOLIC [id number] 13:43:25 Test Item Value Reference Range Interpretation Comments SODIUM (BEAKER) 135 meq/L 136-145 L (test code = 381) POTASSIUM (BEAKER) 5.3 meq/L 3.5-5.1 H (test code = 379) CHLORIDE (BEAKER) 97 meq/L 98-107 L (test code = 382) CO2 (BEAKER) (test 24 meq/L - code = 355) BLOOD UREA NITROGEN 53 mg/dL 7-21 H (BEAKER) (test code = 354) CREATININE (BEAKER) 9.15 mg/dL 0.57-1.25 H (test code = 358) GLUCOSE RANDOM 124 mg/dL 70-105 H (BEAKER) (test code = 652) CALCIUM (BEAKER) 7.9 mg/dL 8.4-10.2 L (test code = 697) EGFR (BEAKER) (test 6 mL/min/1.73 ESTIMAT ED GFR IS code = 1092) sq m NOT ACCURATE CREATININE CLEARANCE IN PREDICTING GLOMERULAR FILTRATION RATE . ESTIMATED GFR I S NOT APPLICABLE FOR DIALYSIS PATIEN TS. Admissions Dean ID - PIZAYRA LVANCOMYCIN LEVEL, [id number] 13:26:53 Test Item Value Reference Range Interpretation Comments VANCOMYCIN RANDOM (BEAKER) (test 16.5 ug/mL code = 523) Reference Range: No NormalsOperator ID - DANITZA LPOCT-GLUCOSE [id number] 11:46:40 Test Item Value Reference Range Interpretation Comments POC-GLUCOSE METER 89 mg/dL 70-110 : TESTED A T [facility] 6720 (BEAKER) (test code = [facility], 1538) 41690: Admissions Dean/Techni estefani ID = [id number] for Indy Hodgson POCT-GLUCOSE [id number] 09:19:21 Test Item Value Reference Range Interpretation Comments POC-GLUCOSE METER 85 mg/dL 70-110 : TESTED A T [facility] 6720 (BEAKER) (test code = [facility], 1538) 83965: Admissions Dean/Techni estefani ID = [id number] for Indy Hodgson BLOOD [id number] 02:00:49 Test Item Value Reference Range Interpretation Comments CULTURE (BEAKER) (test No growth in 5 days code = 1095) BLOOD [id number] 02:00:48 Test Item Value Reference Range Interpretation Comments CULTURE (BEAKER) (test No growth in 5 days code = 1095) POCT-GLUCOSE [id number] 16:43:34 Test Item Value Reference Range Interpretation Comments POC-GLUCOSE METER 121 mg/dL 70-110 H : TESTED A T [facility] 6720 (BEAKER) (test code = [facility], 1538) 57785: Admissions Dean/Techni estefani ID = [id number] for Jewels Tavarez POCT-GLUCOSE [id number] 11:35:53 Test Item Value Reference Range Interpretation Comments POC-GLUCOSE METER 146 mg/dL 70-110 H : TESTED A T [facility] 6720 (BEAKER) (test code = [facility], 1538) 78850: Admissions Dean/Techni estefani ID = [id number] for Jewels Tavarez BASIC METABOLIC [id number] 10:24:11 Test Item Value Reference Range Interpretation Comments SODIUM (BEAKER) 135 meq/L 136-145 L (test code = 381) POTASSIUM (BEAKER) 4.7 meq/L 3.5-5.1 (test code = 379) CHLORIDE (BEAKER) 99 meq/L 98-107 (test code = 382) CO2 (BEAKER) (test 25 meq/L 22-29 code = 355) BLOOD UREA NITROGEN 39 mg/dL 7-21 H (BEAKER) (test code = 354) CREATININE (BEAKER) 6.86 mg/dL 0.57-1.25 H (test code = 358) GLUCOSE RANDOM 99 mg/dL 70-105 (BEAKER) (test code = 652) CALCIUM (BEAKER) 8.2 mg/dL 8.4-10.2 L (test code = 697) EGFR (BEAKER) (test 8 mL/min/1.73 ESTIMAT ED GFR IS code = 1092) sq m NOT ACCURATE CREATININE CLEARANCE IN PREDICTING GLOMERULAR FILTRATION RATE . ESTIMATED GFR I S NOT APPLICABLE FOR DIALYSIS PATIEN TS. Admissions Dean ID - DANITZA LPOCT-GLUCOSE [id number] 07:12:16 Test Item Value Reference Range Interpretation Comments POC-GLUCOSE METER 100 mg/dL 70-110 : TESTED A T [facility] 6720 (BEAKER) (test code = [facility] [place], 1538) 93363: Admissions Dean/Techni estefani ID = [id number] for KAREN JULIAN SPIN/CONCENTRATION [id number] 06:33:09 Test Item Value Reference Range Interpretation Comments CONCENTRATION CHARGED (BEAKER) (test Done code = 2657) CBC W/PLT COUNT & AUTO [id number] 04:14:18 Test Item Value Reference Range Interpretation Comments WHITE BLOOD CELL COUNT (BEAKER) 7.5 K/ L 3.5-10.5 (test code = 775) RED BLOOD CELL COUNT (BEAKER) 3.30 M/ L 4.63-6.08 L (test code = [...] code = 412) PLATELET COUNT (BEAKER) (test 284 K/CU MM 150-450 code = 756) MEAN [...] (test code = 437) NEUTROPHILS ABSOLUTE COUNT 5.13 K/ L 1.78-5.38 (BEAKER) (test code = 670) LYMPHOCYTES ABSOLUTE COUNT 0.85 K/ L 1.32-3.57 L (BEAKER) (test code = 414) MONOCYTES ABSOLUTE COUNT (BEAKER) 0.85 K/ L 0.30-0.82 H (test code = 415) EOSINOPHILS ABSOLUTE COUNT 0.59 K/ L 0.04-0.54 H (BEAKER) (test code = 416) BASOPHILS ABSOLUTE COUNT (BEAKER) 0.09 K/ L 0.01-0.08 H (test code = 417) IMMATURE GRANULOCYTES-RELATIVE 0 % 0-1 PERCENT (BEAKER) (test code = 2801) POCT-GLUCOSE [id number] 23:58:47 Test Item Value Reference Range Interpretation Comments POC-GLUCOSE METER 154 mg/dL 70-110 H : TESTED A T [facility] 6720 (BEAKER) (test code = [facility], 1538) 96076: Admissions Dean/Techni estefani ID = [id number] for GR AHAM, KAREN [id number] 18:10:11 Test Item Value Reference Range Interpretation Comments FERRITIN (BEAKER) (test code = 776.18 ng/mL 5.00-275.00 H 361) Admissions Dean ID - FSEIRON, TIBC, % SAT. (WITHOUT FERRITIN)2021-03-02 17:49:09 Test Item Value Reference Range Interpretation Comments IRON (BEAKER) (test code = 547) 33.0 ug/dL 40.0-160.0 L TOTAL IRON BINDING CAPACITY 180 ug/dL 250-450 L (BEAKER) (test code = 769) IRON % SATURATION (2) (BEAKER) 18 % 20-55 L (test code = 2590) Admissions Dean ID - [id number] 17:46:44 Test Item Value Reference Range Interpretation Comments PHOSPHORUS (BEAKER) (test code = 4.4 mg/dL 2.3-4.7 604) Admissions Dean ID - FSEPOCT-GLUCOSE [id number] 16:19:13 Test Item Value Reference Range Interpretation Comments POC-GLUCOSE METER 113 mg/dL 70-110 H : TESTED A T [facility] 6720 (BEAKER) (test code = [facility], 1538) 97655: Admissions Dean/Techni estefani ID = [id number] for Anakuzhiyil, Li ssy POCT-GLUCOSE [id number] 11:25:41 Test Item Value Reference Range Interpretation Comments POC-GLUCOSE METER 85 mg/dL 70-110 : TESTED Vikas Velásquez [facility] 6720 (BEAKER) (test code = [facility] [place], 1538) 23680: Admissions Dean/Techni estefani ID = [id number] for Avery Mendoza CBC W/PLT COUNT & AUTO [id number] 08:28:03 Test Item Value Reference Range Interpretation Comments WHITE BLOOD CELL COUNT (BEAKER) 8.6 K/ L 3.5-10.5 (test code = 775) RED BLOOD CELL COUNT (BEAKER) 3.18 M/ L 4.63-6.08 L (test code = 761) HEMOGLOBIN (BEAKER) (test code = 8.3 GM/DL 13.7-17.5 L 410) HEMATOCRIT (BEAKER) (test code = 27.7 % 40.1-51.0 L 411) MEAN CORPUSCULAR VOLUME (BEAKER) 87.1 fL 79.0-92.2 (test code = 753) MEAN [...] (test code = 432) BASOPHILS RELATIVE PERCENT 2 % (BEAKER) (test code = 437) NEUTROPHILS ABSOLUTE COUNT 5.66 K/ L 1.78-5.38 H (BEAKER) (test code = 670) LYMPHOCYTES ABSOLUTE COUNT 1.28 K/ L 1.32-3.57 L (BEAKER) (test code = 414) MONOCYTES ABSOLUTE COUNT (BEAKER) 0.81 K/ L 0.30-0.82 (test code = 415) EOSINOPHILS ABSOLUTE COUNT 0.70 K/ L 0.04-0.54 H (BEAKER) (test code = 416) BASOPHILS ABSOLUTE COUNT (BEAKER) 0.13 K/ L 0.01-0.08 H (test code = 417) IMMATURE GRANULOCYTES-RELATIVE 1 % 0-1 PERCENT (BEAKER) (test code = 2801) BASIC METABOLIC [id number] 05:41:27 Test Item Value Reference Range Interpretation Comments SODIUM (BEAKER) 138 meq/L 136-145 (test code = 381) POTASSIUM (BEAKER) 5.0 meq/L 3.5-5.1 (test code = 379) CHLORIDE (BEAKER) 102 meq/L 98-107 (test code = 382) CO2 (BEAKER) (test 23 meq/L 22-29 code = 355) BLOOD UREA NITROGEN 60 mg/dL 7-21 H (BEAKER) (test code = 354) CREATININE (BEAKER) 8.13 mg/dL 0.57-1.25 H (test code = 358) GLUCOSE RANDOM 94 mg/dL 70-105 (BEAKER) (test code = 652) CALCIUM (BEAKER) 8.3 mg/dL 8.4-10.2 L (test code = 697) EGFR (BEAKER) (test 7 mL/min/1.73 ESTIMAT ED GFR IS code = 1092) sq m NOT ACCURATE CREATININE CLEARANCE IN PREDICTING GLOMERULAR FILTRATION RATE . ESTIMATED GFR I S NOT APPLICABLE FOR DIALYSIS PATIEN TS. Admissions Dean ID - DBPOCT-GLUCOSE [id number] 21:49:33 Test Item Value Reference Range Interpretation Comments POC-GLUCOSE METER 169 mg/dL 70-110 H : TESTED A T [facility] 6720 (BEAKER) (test code = [facility] [place], 1538) 52998: Admissions Dean/Techni estefani ID = [id number] for Ca rafael, Ramonita RAD, CHEST, 1 VIEW, NON [id number] 18:21:00Reason for exam:->preopShould this be performed at the bedside?->Yes [facility] CENTERName: [facility] GRIJALVA : 1960 Sex: MFINAL REPORT TECHNIQUE: Frontal view of the chest. INDICATION: preop. COMPARISON: Chest radiograph from 01/06/2020. FINDINGS: LINES/TUBES: None. LUNGS: The lungs are well inflated and clear. No consolidation or pulmonary edema. PLEURA: No pneumothorax or significant pleural effusion. HEART AND MEDIASTINUM: The cardiac silhouette is normal in size. SOFT TISSUES AND BONES: Prior median sternotomy. IMPRESSION:No acute intrathoracic abnormality. Signed: Srinivas De La Torre Verified Date/Time: 03/01/2021 18:21:46 Reading Location: [place] [id number] CT Body Reading Room POCT-GLUCOSE [id number] 16:59:29 Test Item Value Reference Range Interpretation Comments POC-GLUCOSE METER 109 mg/dL 70-110 : TESTED A T [facility] 6720 ([facility]) (test code = [facility], 153) 38827: Admissions Dean/Techni estefani ID = [id number] for Callie onrubi, Indy POCT-GLUCOSE [id number] 11:51:04 Test Item Value Reference Range Interpretation Comments POC-GLUCOSE METER 103 mg/dL 70-110 : TESTED A T [facility] 6720 ([facility]) (test code = [facility], 1538) 58039: Admissions Dean/Techni estefani ID = [id number] for Le onard, Indy BASIC METABOLIC [id number] 10:02:41 Test Item Value Reference Range Interpretation Comments SODIUM (AKER) 131 meq/L 136-145 L (test code = 381) POTASSIUM (BEAKER) 5.9 meq/L 3.5-5.1 H (test code = 379) CHLORIDE (BEAKER) 96 meq/L 98-107 L (test code = 382) CO2 (BEAKER) (test 16 meq/L 22-29 L code = 355) BLOOD UREA NITROGEN 98 mg/dL 7-21 H (BEAKER) (test code = 354) CREATININE (BEAKER) 10.92 mg/dL 0.57-1.25 H (test code = 358) GLUCOSE RANDOM 110 mg/dL 70-105 H (BEAKER) (test code = 652) CALCIUM (BEAKER) 7.8 mg/dL 8.4-10.2 L (test code = 697) EGFR (BEAKER) (test 5 mL/min/1.73 ESTIMAT ED GFR IS code = 1092) sq m NOT ACCURATE CREATININE CLEARANCE IN PREDICTING GLOMERULAR FILTRATION RATE . ESTIMATED GFR I S NOT APPLICABLE FOR DIALYSIS PATIEN TS. Admissions Dean ID - [id number]-GLUCOSE [id number] 08:04:13 Test Item Value Reference Range Interpretation Comments POC-GLUCOSE METER 98 mg/dL 70-110 : [facility] ([facility] (test code [facility] [place], 1538) [address]: Admissions Dean/Techni estefani ID = [id number] for [place]el [place] BASIC METABOLIC [id number] 06:12:22 Test Item Value Reference Range Interpretation Comments SODIUM (BEAKER) 131 meq/L 136-145 L (test code = 381) POTASSIUM (BEAKER) 6.1 meq/L 3.5-5.1 HH (test code = 379) CHLORIDE (BEAKER) 94 meq/L 98-107 L (test code = 382) CO2 (BEAKER) (test 17 meq/L 22-29 L code = 355) BLOOD UREA NITROGEN 96 mg/dL 7-21 H (BEAKER) (test code = 354) CREATININE (BEAKER) 10.70 mg/dL 0.57-1.25 H (test code = 358) GLUCOSE RANDOM 116 mg/dL 70-105 H (BEAKER) (test code = 652) CALCIUM (BEAKER) 8.0 mg/dL 8.4-10.2 L (test code = 697) EGFR (BEAKER) (test 5 mL/min/1.73 ESTIMAT ED GFR IS code = 1092) sq m NOT ACCURATE CREATININE CLEARANCE IN PREDICTING GLOMERULAR FILTRATION RATE . ESTIMATED GFR I S NOT APPLICABLE FOR DIALYSIS PATIEN TS. Admissions Dean ID - DBCBC W/PLT COUNT & AUTO [id number] 04:41:19 Test Item Value Reference Range Interpretation Comments WHITE BLOOD CELL COUNT (BEAKER) 10.3 K/ L 3.5-10.5 (test code = 775) RED BLOOD CELL COUNT (BEAKER) 3.51 M/ L 4.63-6.08 L (test code = 761) HEMOGLOBIN (BEAKER) (test code = 9.1 GM/DL 13.7-17.5 L 410) HEMATOCRIT (BEAKER) (test code = 30.6 % 40.1-51.0 L 411) MEAN CORPUSCULAR VOLUME [...] (test code = 437) NEUTROPHILS ABSOLUTE COUNT 7.01 K/ L 1.78-5.38 H (BEAKER) (test code = 670) LYMPHOCYTES ABSOLUTE COUNT 1.55 K/ L 1.32-3.57 (BEAKER) (test code = 414) MONOCYTES ABSOLUTE COUNT (BEAKER) 0.92 K/ L 0.30-0.82 H (test code = 415) EOSINOPHILS ABSOLUTE COUNT 0.67 K/ L 0.04-0.54 H (BEAKER) (test code = 416) BASOPHILS ABSOLUTE COUNT (BEAKER) 0.11 K/ L 0.01-0.08 H (test code = 417) IMMATURE GRANULOCYTES-RELATIVE 1 % 0-1 PERCENT (BEAKER) (test code = 2801) POCT-GLUCOSE [id number] 21:22:14 Test Item Value Reference Range Interpretation Comments POC-GLUCOSE METER 133 mg/dL 70-110 H : TESTED A T [facility] 6720 (BEAKER) (test code = [facility], 1538) 61189: Admissions Dean/Techni estefani ID = [id number] for Ramonita Prado POCT-GLUCOSE [id number] 15:53:46 Test Item Value Reference Range Interpretation Comments POC-GLUCOSE METER 196 mg/dL 70-110 H : TESTED A T [facility] 6720 ([facility]) (test code = [facility], 1538) 85170: Admissions Dean/Techni estefani ID = [id number] for Callie reynaga, [place] POCT-GLUCOSE [id number] 12:54:21 Test Item Value Reference Range Interpretation Comments POC-GLUCOSE METER 176 mg/dL 70-110 H : TESTED A T [facility] 6720 (BEAKER) (test code = [facility], 1538) 05847: Admissions Dean/Techni estefani ID = [id number] for Callie onrubi, [place] POCT-GLUCOSE [id number] 08:27:05 Test Item Value Reference Range Interpretation Comments POC-GLUCOSE METER 119 mg/dL 70-110 H : TESTED A T [facility] 6720 (BEAKER) (test code = [facility], 1538) 97426: Admissions Dean/Techni estefani ID = [id number] for Le onard, [place] RAD, FOOT, 2 VIEWS, [id number] 07:46:00Is this procedure to be performed with weight bearing?->Non-Weight BearingReason for exam:->chronic osteo of right footJOANN [facility] CENTERName: DAYTON GRIJALVA : 1960 Sex: MFINAL REPORT Radiograph of the right foot Reason for exam: chronic osteo of right foot Comparison: September 16, 2020 Discussion: Status post transmetatarsal amputation. There isapparent soft tissue defect at the stump. A few small lucencies are noted within the metatarsal remnants, which may reflect osteomyelitis. A skin staple is noted plantar to the calcaneus. There is a bony fragment dorsal to the calcaneal tuberosity. There is advanced peripheral vascular calcification. Signed: Deepti Hutson Verified Date/Time: 02/28/2021 07:46:26 Reading Location: [facility] C013X Ortho Consult Reading Room POCT-GLUCOSE [id number] 23:55:52 Test Item Value Reference Range Interpretation Comments POC-GLUCOSE METER 129 mg/dL 70-110 H : TESTED A T [facility] 6720 (BEAKER) (test code = [facility], 1538) 38971: Admissions Dean/Techni estefani ID = [id number] for ON UOHA, ANTONY VANCOMYCIN LEVEL, [id number] 23:14:57 Test Item Value Reference Range Interpretation Comments VANCOMYCIN RANDOM (BEAKER) (test 20.5 ug/mL code = 523) Reference Range: No NormalsOperator ID - BASSEM WSARS-COV2/RT-PCR ([facility])2021-02-27 22:54:17 Test Item Value Reference Range Interpretation Comments SARS-COV2/RT-PCR (test Negative Not Detected, Negative, code = 7592085) See external report for linked test SARS-COV-2 PERFORMING LAB [facility] KEELY (test code = 7769665) Negative result for this test determines that [...] 564(g) of the Act.Fact Sheet for Healthcare Providers:https://www.Dayforceidel.com/sites/default/files/product/documents/Fact_Shee f_DE_Gheffitie_Aywj_AEFJ-RjT-9.pdfFact Sheet for Healthcare Patients:https://www.Scrapblog.com/sites/default/files/product/ documents/Sdlr_Cpgtl_Bsrzjmmj_Gxje_FLZX-LoR-7.pdfPerforming Laboratory:[facility], [place] [address]ZKNRJORMK B SURFACE [id number] 21:03:43 Test Item Value Reference Range Interpretation Comments HEPATITIS B SURFACE ANTIGEN (2) Nonreactive Nonreactive (BEAKER) (test code = 2585) Specimen is considered negative for HBsAg.POCT-GLUCOSE [id number] 12:44:24 Test Item Value Reference Range Interpretation Comments POC-GLUCOSE METER 127 mg/dL 70-110 H : TESTED A T [facility] 6720 (BEAKER) (test code = [facility], 1538) 60044: Admissions Dean/Techni estefani ID = [id number] for Indy Stevenson POCT-GLUCOSE [id number] 09:35:05 Test Item Value Reference Range Interpretation Comments POC-GLUCOSE METER 102 mg/dL 70-110 : TESTED A T [facility] 6720 (BEAKER) (test code = [facility], 1538) 57091: Admissions Dean/Techni estefani ID = [id number] for Indy Stevenson COMPREHENSIVE METABOLIC [id number] 00:02:18 Test Item Value Reference Range Interpretation Comments TOTAL PROTEIN 8.4 gm/dL 6.0-8.3 H (BEAKER) (test code = 770) ALBUMIN (BEAKER) 3.6 g/dL 3.5-5.0 (test code = 1145) ALKALINE PHOSPHATASE 114 U/L 40-150 (BEAKER) (test code = 346) BILIRUBIN TOTAL 0.4 mg/dL 0.2-1.2 (BEAKER) (test code = 377) SODIUM (BEAKER) (test 136 meq/L 136-145 code = 381) POTASSIUM (BEAKER) 4.8 meq/L 3.5-5.1 (test code = 379) CHLORIDE (BEAKER) 98 meq/L 98-107 (test code = 382) CO2 (BEAKER) (test 19 meq/L 22-29 L code = 355) BLOOD UREA NITROGEN 83 mg/dL 7-21 H (BEAKER) (test code = 354) CREATININE (BEAKER) 10.13 mg/dL 0.57-1.25 H (test code = 358) GLUCOSE RANDOM 133 mg/dL 70-105 H (BEAKER) (test code = 652) CALCIUM (BEAKER) 8.5 mg/dL 8.4-10.2 (test code = 697) AST (SGOT) (BEAKER) 16 U/L 5-34 (test code = 353) ALT (SGPT) (BEAKER) 29 U/L 6-55 (test code = 347) EGFR (BEAKER) (test 5 mL/min/1.73 ESTIMAT ED GFR IS code = 1092) sq m NOT ACCURATE CREATININE CLEARANCE IN PREDICTING GLOMERULAR FILTRATION RATE . ESTIMATED GFR I S NOT APPLICABLE FOR DIALYSIS PATIEN TS. Admissions Dean ID - DANITZA LC-REACTIVE [id number] 00:01:52 Test Item Value Reference Range Interpretation Comments C-REACTIVE PROTEIN (BEAKER) (test 10.77 mg/dL 0.00-0.50 H code = 676) Admissions Dean ID - DANITZA [id number] 00:01:51 Test Item Value Reference Range Interpretation Comments PHOSPHORUS (BEAKER) (test code = 7.0 mg/dL 2.3-4.7 H 604) Admissions Dean ID - DANITZA [id number] 00:01:50 Test Item Value Reference Range Interpretation Comments MAGNESIUM (BEAKER) (test code = 2.2 mg/dL 1.6-2.6 627) Admissions Dean ID - DANITZA LLACTIC ACID, [id number] 23:54:08 Test Item Value Reference Range Interpretation Comments LACTATE BLOOD VENOUS (2) (BEAKER) 1.17 mmol/L 0.50-2.20 (test code = 2872) Admissions Dean ID - DANITAZ [id number] 23:40:06 Test Item Value Reference Range Interpretation Comments PARTIAL THROMBOPLASTIN TIME 44.1 seconds 22.5-36.0 H (BEAKER) (test code = 760) PROTHROMBIN [id number] 23:39:04 Test Item Value Reference Range Interpretation Comments PROTIME (BEAKER) 16.0 seconds 11.9-14.2 H (test code = 759) INR (BEAKER) (test 1.30 See_Comment [Automat ed message] code = 370) The system [employer] generated this result transmitted ref erence range: <=5.90. The reference range was not used to int erpret this result as normal/abnormal . RECOMMENDED COUMADIN/WARFARIN INR THERAPY RANGESSTANDARD DOSE: 2.0 - 3.0 Includes: PROPHYLAXIS forvenous thrombosis, systemic embolization; TREATMENT for venous thrombosis and/or pulmonary embolus.HIGH RISK: Target INR is 2.5-3.5 for patients with mechanical heart valves.CBC W/PLT COUNT & AUTO DIFFERENTIAL 2021-02-26 23:30:06 Test Item Value Reference Range Interpretation Comments WHITE BLOOD CELL COUNT (BEAKER) 13.4 K/ L 3.5-10.5 H (test code = 775) RED BLOOD CELL COUNT (BEAKER) 3.81 M/ L 4.63-6.08 L (test code = 761) HEMOGLOBIN (BEAKER) (test code = 9.7 GM/DL 13.7-17.5 L 410) HEMATOCRIT (BEAKER) (test code = 31.8 % 40.1-51.0 L 411) MEAN CORPUSCULAR VOLUME (BEAKER) 83.5 fL 79.0-92.2 (test code = 753) MEAN CORPUSCULAR HEMOGLOBIN 25.5 pg 25.7-32.2 L (BEAKER) (test code = 751) MEAN CORPUSCULAR HEMOGLOBIN CONC 30.5 GM/DL 32.3-36.5 L (BEAKER) (test code = 752) RED CELL DISTRIBUTION WIDTH 16.8 % 11.6-14.4 H (BEAKER) (test code = 412) PLATELET COUNT (BEAKER) (test 361 K/CU MM 150-450 code = 756) MEAN [...] (test code = 437) NEUTROPHILS ABSOLUTE COUNT 10.46 K/ L 1.78-5.38 H (BEAKER) (test code [...] code = 2801) AFB CULTURE + SMEAR (NON-SPUTUM)2020-11-03 12:52:00 Test Item Value Reference Range Interpretation Comments CULTURE (BEAKER) (test No acid-fast bacilli code = 1095) isolated in 42 days AFB SMEAR (BEAKER) No acid fast bacilli (test code = 994) seen AFB CULTURE + SMEAR (NON-SPUTUM)2020-11-03 12:52:00 Test Item Value Reference Range Interpretation Comments CULTURE (BEAKER) (test No acid-fast bacilli code = 1095) isolated in 42 days AFB SMEAR (BEAKER) No acid fast bacilli (test code = 994) seen FUNGUS CULTURE + [id number] 01:34:00 Test Item Value Reference Range Interpretation Comments CULTURE (BEAKER) (test No fungus isolated in code = 1095) 28 days FUNGUS SMEAR (BEAKER) No fungi seen (test code = 1406) FUNGUS CULTURE + [id number] 01:24:00 Test Item Value Reference Range Interpretation Comments CULTURE (BEAKER) (test No fungus isolated in code = 1095) 28 days FUNGUS SMEAR (BEAKER) No fungi seen (test code = 1406) SURGICALLY OBTAINED CULTURE + GRAM [id number] 16:50:00 Test Item Value Reference Interpretation Comments [...] No organisms (BEAKER) (test code seen = 722335) GRAM STAIN RESULT No organisms (BEAKER) (test code seen = 623405) POCT-GLUCOSE [id number] 21:10:00 Test Item Value Reference Range Interpretation Comments POC-GLUCOSE METER 142 mg/dL 70-110 H : TESTED A T [facility] 6720 (BEAKER) (test code = [facility], 153) 66336: Admissions Dean/Techni estefani ID = [id number] for CA RBAJAL, TIMA POCT-GLUCOSE [id number] 11:54:00 Test Item Value Reference Range Interpretation Comments POC-GLUCOSE METER 103 mg/dL 70-110 : TESTED A T [facility] 6720 (BEAKER) (test code = [facility], 153) 74786: Admissions Dean/Techni estefani ID = [id number] for SA NTOS, JACOB POCT-GLUCOSE [id number] 08:41:00 Test Item Value Reference Range Interpretation Comments POC-GLUCOSE METER 83 mg/dL 70-110 : TESTED A T [facility] 6720 (BEAKER) (test code = [facility], 153) 84499: Admissions Dean/Techni estefani ID = [id number] for QUANG OS, JACOB POCT-GLUCOSE [id number] 07:07:00 Test Item Value Reference Range Interpretation Comments POC-GLUCOSE METER 68 mg/dL 70-110 L : TESTED A T [facility] 6720 (BEAKER) (test code = [facility], 1538) 45408: Admissions Dean/Techni estefani ID = [id number] for TEJINDER KITCHEN CBC (HEMOGRAM ONLY)2020-10-03 06:23:00 [...] 0-0 (BEAKER) (test code = 413) POCT-GLUCOSE [id number] 17:51:00 Test Item Value Reference Range Interpretation Comments POC-GLUCOSE METER 141 mg/dL 70-110 H : TESTED A T [facility] 6720 (BEAKER) (test code = [facility], 1538) 84726: Admissions Dean/Techni estefani ID = [id number] for Ronald Coffman TISSUE [id number] 13:40:00Surgical Pathology Report Case: [id number] Authorizing Provider: Star Cloud DPM Collected: 09/20/2020 10:59 AM Ordering Location: [address] Received: 09/22/2020 08:28 AM Service Pathologist: Saira Chávez MD Specimen: Bone, Bone Eschar Soft Tissue Right Foot ESCHAR AND SOFT TISSUE, RIGHT FOOT, EXCISION: - SKIN AND SOFT TISSUE WITH GANGRENOUS NECROSIS,, ABSECESS AND FIBRINOPURULENT EXUDATE - GMS STAIN NEGATIVE FOR FUNGAL ORGANISM Signing Pathologist Direct Phone Line: [phone] signed by Saira Chávez MD on 10/02/2020 at 1:40 PMCorrelation with culture study is recommended.00496, 17155Hrbcyaii ulcer, forefoot leftBone tissue, bone eschar soft tissue right foot A. Received are multiple pieces of baca-black, flat, necrotic skin and soft tissue from 0.5 to 2 x 2 cm excised to a depth of less than 0.1 cm. Mill Order Scheduler sections are submitted in cassette A1. KM/ewThe interpretation of this case included the use of immunohistochemistry or special stains. GMS- NegativeControl Slides Examined: In-house known positive controls were evaluated along with the test tissue. These control slides run alongside of the patients sample show appropriate staining. Internal positive and negative controls when available are evaluated Immunohistochemistry technical testing was performed at [facility], Pathology Laboratory where it was developed and [...] to perform high complexity clinical laboratory testing.POCT-GLUCOSE [id number] 13:28:00 Test Item Value Reference Range Interpretation Comments POC-GLUCOSE METER 77 mg/dL 70-110 : TESTED A T [facility] 6720 (NOE) (test code = [facility], 1538) 59261: Admissions Dean/Techni estefani ID = [id number] for Aminata ie, Ronald [id number] 12:03:00 Test Item Value Reference Range Interpretation Comments ACTIVATED CLOTTING TIME 323 sec : 74 -137 seconds, (NOE) (test code = Amadeo ne: TESTED AT 441) [facility] 6720 [facility], 770 30: Admissions Dean/Techni estefani ID = [id number] for AMADA BOLDEN POCT-GLUCOSE [id number] 07:25:00 Test Item Value Reference Range Interpretation Comments POC-GLUCOSE METER 73 mg/dL 70-110 : TESTED A T [facility] 6720 (BEAKER) (test code = [facility], 1538) 65005: Admissions Dean/Techni estefani ID = [id number] for AMADA DUKES CBC (HEMOGRAM ONLY)2020-10-02 05:34:00 [...] 0-0 (BEAKER) (test code = 413) POCT-GLUCOSE [id number] 01:02:00 Test Item Value Reference Range Interpretation Comments POC-GLUCOSE METER 91 mg/dL 70-110 : [facility] (test code = [facility], 1538) 18672: Admissions Dean/Techni estefani ID = [id number] for Kathe Telol POCT-GLUCOSE [id number] 22:29:00 Test Item Value Reference Range Interpretation Comments POC-GLUCOSE METER 101 mg/dL 70-110 : TESTED A T [facility] 6720 (BEAKER) (test code = [facility], 1538) 78417: Admissions Dean/Techni estefani ID = [id number] for Kathe Scales POCT-GLUCOSE [id number] 17:20:00 Test Item Value Reference Range Interpretation Comments POC-GLUCOSE METER 147 mg/dL 70-110 H : TESTED A T [facility] 6720 (BEAKER) (test code = [facility], 1538) 34405: Admissions Dean/Techni estefani ID = [id number] for GUNNER PANDYA POCT-GLUCOSE [id number] 12:35:00 Test Item Value Reference Range Interpretation Comments POC-GLUCOSE METER 75 mg/dL 70-110 : TESTED A T [facility] 6720 (BEAKER) (test code = [facility], 1538) 70456: Admissions Dean/Techni estefani ID = [id number] for FAGUNNER MCNALLY CBC (HEMOGRAM ONLY)2020-10-01 05:49:00 [...] 0-0 (BEAKER) (test code = 413) POCT-GLUCOSE [id number] 21:43:00 Test Item Value Reference Range Interpretation Comments POC-GLUCOSE METER 130 mg/dL 70-110 H : TESTED A T [facility] 6720 (BEAKER) (test code = [facility], 1538) 57356: Admissions Dean/Techni estefani ID = [id number] for Sully Rivera POCT-GLUCOSE [id number] 18:06:00 Test Item Value Reference Range Interpretation Comments POC-GLUCOSE METER 85 mg/dL 70-110 : TESTED A T [facility] 6720 (BEAKER) (test code = [facility], 1538) 20404: Admissions Dean/Techni estefani ID = [id number] for QUANG OS, JACOB POCT-GLUCOSE [id number] 12:10:00 Test Item Value Reference Range Interpretation Comments POC-GLUCOSE METER 105 mg/dL 70-110 : TESTED A T [facility] 6720 (BEAKER) (test code = [facility], 1538) 78888: Admissions Dean/Techni estefani ID = [id number] for SA DE LEON, JACOB POCT-GLUCOSE [id number] 08:18:00 Test Item Value Reference Range Interpretation Comments POC-GLUCOSE METER 79 mg/dL 70-110 : TESTED A T [facility] 6720 (BEAKER) (test code = [facility], 1538) 58104: Admissions Dean/Techni estefani ID = [id number] for QUANG OS, JACOB CBC (HEMOGRAM ONLY)2020-09-30 [...] CORPUSCULAR HEMOGLOBIN CONC 31.7 GM/DL 32.3-36.5 L (AKER) (test code = 752) RED CELL DISTRIBUTION WIDTH 17.4 % 11.6-14.4 H (BEAKER) (test code = 412) PLATELET COUNT (BEAKER) (test 274 K/CU MM 150-450 code = 756) MEAN PLATELET VOLUME (AKER) 10.1 fL 9.4-12.4 (test code = 754) NUCLEATED RED BLOOD CELLS 0 /100 WBC 0-0 ([facility]) (test code = 413) POCT-GLUCOSE [id number] 21:43:00 Test Item Value Reference Range Interpretation Comments POC-GLUCOSE METER 122 mg/dL 70-110 H : TESTED A T [facility] 6720 ([facility]) (test code = [facility], 153) 32670: Admissions Dean/Techni estefani ID = [id number] for CA RBAJAL, TIMA POCT-GLUCOSE [id number] 16:21:00 Test Item Value Reference Range Interpretation Comments POC-GLUCOSE METER 105 mg/dL 70-110 : TESTED A T [facility] 6720 (BEAKER) (test code [facility], = 1538) 25186: Admissions Dean/Techni estefani ID = [id number] for LATT TRICE - FLETCHER, COLLINS POCT-GLUCOSE [id number] 12:38:00 Test Item Value Reference Range Interpretation Comments POC-GLUCOSE METER 79 mg/dL 70-110 : TESTED A T [facility] 6720 (BEAKER) (test code = [facility], 153) 69359: Admissions Dean/Techni estefani ID = [id number] for LATT IMORE - FLETCHER, COLLINS POCT-GLUCOSE [id number] 07:57:00 Test Item Value Reference Range Interpretation Comments POC-GLUCOSE METER 84 mg/dL 70-110 : TESTED A T [facility] 6720 (BEAKER) (test code = [facility], 1538) 68727: Admissions Dean/Techni estefani ID = [id number] for COLLINS SIFUENTES [id number] 05:25:00 Test Item Value Reference Range Interpretation [...] 0-0 (BEAKER) (test code = 413) POCT-GLUCOSE [id number] 21:38:00 Test Item Value Reference Range Interpretation Comments POC-GLUCOSE METER 138 mg/dL 70-110 H : TESTED A T [facility] 6720 (BEAKER) (test code = [facility], 1538) 52131: Admissions Dean/Techni estefani ID = [id number] for JAD SALGUERO POCT-GLUCOSE [id number] 17:13:00 Test Item Value Reference Range Interpretation Comments POC-GLUCOSE METER 97 mg/dL 70-110 : TESTED A T [facility] 6720 (BEAKER) (test code = [facility], 1538) 86086: Admissions Dean/Techni estefani ID = [id number] for GUNNER MUHAMMAD POCT-GLUCOSE [id number] 12:15:00 Test Item Value Reference Range Interpretation Comments POC-GLUCOSE METER 105 mg/dL 70-110 : TESTED A T [facility] 6720 (BEAKER) (test code = [facility] Jose [facility], 1538) 03010: Admissions Dean/Techni estefani ID = [id number] for GUNNER PANDYA SARS-COV2/RT-PCR ([facility])2020-09-28 11:54:00 Test Item Value Reference Range Interpretation Comments SARS-COV2/RT-PCR Negative Negative The SARS-Co V-2 target (test code = 6970687) nuclei c acids are not detected in [...] SARS-CoV-2/Flu/RSV by their healthcare provider. Results from [facility] Xpert Xpress SARS-CoV-2/Flu/RSV test should be correlated [...] of the Act.Fact Sheet for Healthcare Providers :https://www.[employer]/Documents/Xpert%20Xpress%20SARS%20CoV-2/Fact%20Sheets/3 02-3902%57FVDC-VFH-4%20HEALTHCARE%20PROVIDERS%20FACT%20SHEET.pdfFact Sheet for Healthcare Patients:https://www.[employer] /Documents/Xpert%20Xpress%20SARS%20Cov-2/Fact%20Sheets/302-3801%15EOPB-AJB-0%20P ATIENT%20FACT%20SHEET.pdfBARIVER [facility] METABOLIC [id number] 11:14:00 Test Item Value Reference Range Interpretation [...] S NOT APPLICABLE FOR DIALYSIS PATIEN TS. Admissions Dean ID - [id number] (HEMOGRAM ONLY)2020-09-28 09:37:00 Test [...] 0-0 (BEAKER) (test code = 413) POCT-GLUCOSE [id number] 16:33:00 Test Item Value Reference Range Interpretation Comments POC-GLUCOSE METER 98 mg/dL 70-110 : TESTED A T [facility] 6720 (BEAKER) (test code = [facility], 1538) 24668: Admissions Dean/Techni estefani ID = [id number] for JAD MICHAEL POCT-GLUCOSE [id number] 12:28:00 Test Item Value Reference Range Interpretation Comments POC-GLUCOSE METER 88 mg/dL 70-110 : TESTED A T [facility] 6720 (BEAKER) (test code = [facility], 1538) 02443: Admissions Dean/Techni estefani ID = [id number] for JAD MICHAEL OBTAINED CULTURE + GRAM [id number] 08:40:00 Test Item Value Reference Interpretation Comments [...] gram positive (BEAKER) (test code rods = 515909) GRAM STAIN RESULT <1+ gram positive (BEAKER) (test code cocci in clusters = 921211) POCT-GLUCOSE [id number] 07:34:00 Test Item Value Reference Range Interpretation Comments POC-GLUCOSE METER 89 mg/dL 70-110 : TESTED A T [facility] 6720 (BEAKER) (test code = [facility], 153) 48510: Admissions Dean/Techni estefani ID = [id number] for JAD MICHAEL CBC (HEMOGRAM ONLY)2020-09-27 06:32:00 [...] 0-0 (BEAKER) (test code = 413) POCT-GLUCOSE [id number] 22:02:00 Test Item Value Reference Range Interpretation Comments POC-GLUCOSE METER 156 mg/dL 70-110 H : TESTED A T [facility] 6720 (BEAKER) (test code = [facility], 153) 46007: Admissions Dean/Techni estefani ID = [id number] for Sully Rivera POCT-GLUCOSE [id number] 12:02:00 Test Item Value Reference Range Interpretation Comments POC-GLUCOSE METER 116 mg/dL 70-110 H : TESTED A T [facility] 6720 (BEAKER) (test code = [facility] [place], 1538) 37155: Admissions Dean/Techni estefani ID = [id number] for GUNNER PANDYA POCT-GLUCOSE [id number] 08:31:00 Test Item Value Reference Range Interpretation Comments POC-GLUCOSE METER 93 mg/dL 70-110 : TESTED A T [facility] 6720 (BEAKER) (test code = [facility], 1538) 47976: Admissions Dean/Techni estefani ID = [id number] for FAGUNNER MCNALLY ANAEROBIC [id number] 07:58:00 Test Item Value Reference Range Interpretation Comments CULTURE (BEAKER) (test No anaerobes isolated code = 1095) ANAEROBIC [id number] 07:46:00 Test Item Value Reference Range Interpretation [...] 0-0 (BEAKER) (test code = 413) POCT-GLUCOSE [id number] 22:24:00 Test Item Value Reference Range Interpretation Comments POC-GLUCOSE METER 129 mg/dL 70-110 H : TESTED A T [facility] 6720 (BEAKER) (test code = [facility], 1538) 52042: Admissions Dean/Techni estefani ID = [id number] for TEJINDER MORALES POCT-GLUCOSE [id number] 17:39:00 Test Item Value Reference Range Interpretation Comments POC-GLUCOSE METER 106 mg/dL 70-110 : TESTED A T [facility] 6720 (BEAKER) (test code = [facility], 1538) 16355: Admissions Dean/Techni estefani ID = [id number] for SA MOISES, JACOB HEMOGLOBIN AND [id number] 15:48:00 Test Item Value Reference Range Interpretation Comments HEMOGLOBIN (BEAKER) (test code = 6.1 GM/DL 13.7-17.5 L 410) HEMATOCRIT (BEAKER) (test code = 20.6 % 40.1-51.0 L 411) Admissions Dean ID - [id number]-GLUCOSE [id number] 11:53:00 Test Item Value Reference Range Interpretation Comments POC-GLUCOSE METER 122 mg/dL 70-110 H : TESTED A T [facility] 6720 (BEAKER) (test code = [facility], 1538) 27318: Admissions Dean/Techni estefani ID = [id number] for SA MOISES, JACOB POCT-GLUCOSE [id number] 08:02:00 Test Item Value Reference Range Interpretation Comments POC-GLUCOSE METER 105 mg/dL 70-110 : TESTED A T [facility] 6720 (BEAKER) (test code = [facility], 1538) 61577: Admissions Dean/Techni estefani ID = [id number] for SA NTOS, JACOB CBC (HEMOGRAM ONLY)2020-09-25 06:49:00 Test Item Value [...] 0-0 (BEAKER) (test code = 413) POCT-GLUCOSE [id number] 22:19:00 Test Item Value Reference Range Interpretation Comments POC-GLUCOSE METER 174 mg/dL 70-110 H : TESTED A T [facility] 6720 ([facility]) (test code = [facility], 153) 50829: Admissions Dean/Techni estefani ID = [id number] for Sully Rivera POCT-GLUCOSE [id number] 18:50:00 Test Item Value Reference Range Interpretation Comments POC-GLUCOSE METER 152 mg/dL 70-110 H : TESTED A T [facility] 6720 (BEAKER) (test code [facility], = 1538) 31914: Admissions Dean/Techni estefani ID = [id number] for Shonna norman, Sidu POCT-GLUCOSE [id number] 11:55:00 Test Item Value Reference Range Interpretation Comments POC-GLUCOSE METER 169 mg/dL 70-110 H : TESTED A T [facility] 6720 (BEAKER) (test code = [facility], 1538) 63031: Admissions Dean/Techni estefani ID = [id number] for JULY LYLESINA POCT-GLUCOSE [id number] 08:28:00 Test Item Value Reference Range Interpretation Comments POC-GLUCOSE METER 110 mg/dL 70-110 : TESTED A T [facility] 6720 (BEAKER) (test code = DASIA Garcia [place], 1538) [address]64[address]: Admissions Dean/Techni estefani ID = [id number] for JACOB LYLES BASIC METABOLIC [id number] 07:01:00 Test Item Value Reference Range Interpretation [...] S NOT APPLICABLE FOR DIALYSIS PATIEN TS. Admissions Dean ID - BASSEM [id number] 06:35:00 Test Item Value Reference Range Interpretation Comments MAGNESIUM (BEAKER) (test code = 2.2 mg/dL 1.6-2.6 627) Admissions Dean ID Benjie LUEVANO [id number] 06:35:00 Test Item Value Reference Range Interpretation Comments PHOSPHORUS (BEAKER) (test code = 6.0 mg/dL 2.3-4.7 H 604) Admissions Dean ID Benjie LUEVANO [facility]BC (HEMOGRAM ONLY)2020-09-24 05:34:00 [...] 0-0 (BEAKER) (test code = 413) POCT-GLUCOSE [id number] 05:21:00 Test Item Value Reference Range Interpretation Comments POC-GLUCOSE METER 107 mg/dL 70-110 : TESTED A T [facility] 6720 (BEAKER) (test code [facility] HEALTH, = 1538) 18700: Admissions Dean/Techni estefani ID = [id number] for DARLYN RRE, NARCISO POCT-GLUCOSE [id number] 20:32:00 Test Item Value Reference Range Interpretation Comments POC-GLUCOSE METER 133 mg/dL 70-110 H : TESTED A T [facility] 6720 (BEAKER) (test code = [facility], 153) 69176: Admissions Dean/Techni estefani ID = [id number] for UL LATTIL, SJ POCT-GLUCOSE [id number] 17:23:00 Test Item Value Reference Range Interpretation Comments POC-GLUCOSE METER 141 mg/dL 70-110 H : TESTED A T [facility] 6720 (BEAKER) (test code = [facility], 153) 68981: Admissions Dean/Techni estefani ID = [id number] for GUNNER PANDYA SARS-COV2/RT-PCR ([facility])2020-09-23 16:45:00 Test Item Value Reference Range Interpretation Comments SARS-COV2/RT-PCR (test Negative Not Detected, Negative, code = 2636434) See external report for linked test SARS-COV-2 PERFORMING LAB [facility] KE[facility] (test code = 8211563) Negative result for this test determines that [...] 564(g) of the Act.Fact Sheet for Healthcare Providers:https://www.Dayforceidel.com/sites/default/files/product/documents/Fact_Shee d_LB_Dchmbwonz_Rgba_EGXV-XhG-8.pdfFact Sheet for Healthcare Patients:https://www.Scrapblog.com/sites/default/files/product/ documents/Cubs_Xjatq_Bxzgyrob_Brnc_TZKO-UdK-0.pdfPerforming Laboratory:[address]ie StephensRose [place], [place] [address]FTRXW CULTURE 2020-09-23 12:00:00 Test Item Value Reference Range Interpretation Comments CULTURE (BEAKER) (test No growth in 5 days code = 1095) POCT-GLUCOSE [id number] 08:40:00 Test Item Value Reference Range Interpretation Comments POC-GLUCOSE METER 82 mg/dL 70-110 : TESTED A T [facility] 6720 (BEAKER) (test code = DASIA Garcia [facility], 1538) 50776: Admissions Dean/Techni estefani ID = [id number] for GUNNER MUHAMMAD BASIC METABOLIC [id number] 06:29:00 Test Item Value Reference Range Interpretation [...] S NOT APPLICABLE FOR DIALYSIS PATIEN TS. Admissions Dean ID - JAQUELINE [id number] 06:27:00 Test Item Value Reference Range Interpretation Comments MAGNESIUM (BEAKER) (test code = 1.9 mg/dL 1.6-2.6 627) Admissions Dean ID - JAQUELINE [id number] 06:27:00 Test Item Value Reference Range Interpretation Comments PHOSPHORUS (BEAKER) (test code = 4.5 mg/dL 2.3-4.7 604) Admissions Dean ID - JAQUELINE [facility] (HEMOGRAM ONLY)2020-09-23 06:08:00 [...] 0-0 (BEAKER) (test code = 413) POCT-GLUCOSE [id number] 20:54:00 Test Item Value Reference Range Interpretation Comments POC-GLUCOSE METER 111 mg/dL 70-110 H : TESTED A T [facility] 6720 (BEAKER) (test code = [facility], 153) 14617: Admissions Dean/Techni estefani ID = [id number] for UL LATTIL, SJ POCT-GLUCOSE [id number] 17:25:00 Test Item Value Reference Range Interpretation Comments POC-GLUCOSE METER 119 mg/dL 70-110 H : TESTED A T [facility] 6720 (BEAKER) (test code = [facility] [employer] [facility], 1538) 87818: Admissions Dean/Techni estefani ID = [id number] for GUNNER PANDYA BASIC METABOLIC [id number] 12:39:00 Test Item Value Reference Range Interpretation [...] S NOT APPLICABLE FOR DIALYSIS PATIEN TS. Admissions Dean ID Benjie HARDY [id number] 12:36:00 Test Item Value Reference Range Interpretation Comments MAGNESIUM (BEAKER) (test code = 2.0 mg/dL 1.6-2.6 627) Admissions Dean ID Benjie HARDY [id number] 12:36:00 Test Item Value Reference Range Interpretation Comments PHOSPHORUS (BEAKER) (test code = 5.8 mg/dL 2.3-4.7 H 604) Admissions Dean ID Benjie HARDY FPOCT-GLUCOSE [id number] 12:22:00 Test Item Value Reference Range Interpretation Comments POC-GLUCOSE METER 104 mg/dL 70-110 : TESTED A T [facility] 6720 (BEAKER) (test code = [facility], 1538) 98152: Admissions Dean/Techni estefani ID = [id number] for FA ITH, GUNNER POCT-GLUCOSE [id number] 08:22:00 Test Item Value Reference Range Interpretation Comments POC-GLUCOSE METER 100 mg/dL 70-110 : TESTED A T [facility] 6720 (BEAKER) (test code = [facility], 1538) 14744: Admissions Dean/Techni estefani ID = [id number] for FA ITH, GUNNER POCT-GLUCOSE [id number] 21:12:00 Test Item Value Reference Range Interpretation Comments POC-GLUCOSE METER 133 mg/dL 70-110 H : TESTED A T [facility] 6720 (BEAKER) (test code = [facility] Jose [facility], 1538) 30388: Admissions Dean/Techni estefani ID = [id number] for ROSIO DUFF POCT-GLUCOSE [id number] 16:31:00 Test Item Value Reference Range Interpretation Comments POC-GLUCOSE METER 127 mg/dL 70-110 H : TESTED A T [facility] 6720 (BEAKER) (test code = [facility], 1538) 21160: Admissions Dean/Techni estefani ID = [id number] for Ronald Coffman POCT-GLUCOSE [id number] 12:56:00 Test Item Value Reference Range Interpretation Comments POC-GLUCOSE METER 99 mg/dL 70-110 : TESTED A T [facility] 6720 (BEAKER) (test code = [facility], 1538) 39606: Admissions Dean/Techni estefani ID = [id number] for Aminata ie, Ronald BASIC METABOLIC [id number] 12:15:00 Test Item Value Reference Range Interpretation [...] S NOT APPLICABLE FOR DIALYSIS PATIEN TS. Admissions Dean ID - PIAYA LWOUND CULTURE + GRAM [id number] 08:12:00 Test Item Value Reference Range Interpretation Comments CULTURE (BEAKER) A 3+ Same org anism has (test code = been isolated f rom 1095) cultures(s) of the same body site and collection date . Repeat identifi cation and susceptibil ity testing perform ed only after consultat ion with the [facility] microbiology laboratory.Refe r to previous cultur e ofEnterococcus faecalis GRAM STAIN <1+ WBCs RESULT (BEAKER) (test code = 1123) GRAM STAIN <1+ gram RESULT (BEAKER) negative rods (test code = 258005) GRAM STAIN 1+ gram positive RESULT (BEAKER) cocci in (test code = clusters 797759) WOUND CULTURE + GRAM [id number] 08:10:00 Test Item Value Reference Interpretation Comments [...] (BEAKER) (test code = cocci in pairs 986088) POCT-GLUCOSE [id number] 07:38:00 Test Item Value Reference Range Interpretation Comments POC-GLUCOSE METER 84 mg/dL 70-110 : TESTED A T [facility] 6720 (BEAKER) (test code = [facility], 1537) 24545: Admissions Dean/Techni estefani ID = [id number] for Ronald Brown SPIN/CONCENTRATION [id number] 06:17:00 Test Item Value Reference Range Interpretation Comments CONCENTRATION CHARGED (BEAKER) (test Done code = 2657) POCT-GLUCOSE [id number] 21:46:00 Test Item Value Reference Range Interpretation Comments POC-GLUCOSE METER 122 mg/dL 70-110 H : TESTED A T [facility] 6720 (BEAKER) (test code = [facility], 153) 96366: Admissions Dean/Techni estefani ID = [id number] for Tavo Garcia POCT-GLUCOSE [id number] 17:39:00 Test Item Value Reference Range Interpretation Comments POC-GLUCOSE METER 114 mg/dL 70-110 H : TESTED A T [facility] 6720 (BEAKER) (test code = [facility], 153) 48192: Admissions Dean/Techni estefani ID = [id number] for DEMOND HODGE POCT-GLUCOSE [id number] 12:25:00 Test Item Value Reference Range Interpretation Comments POC-GLUCOSE METER 93 mg/dL 70-110 : TESTED A T [facility] 6720 (BEAKER) (test code = DASIA Garcia [facility], 1538) 65250: Admissions Dean/Techni estefani ID = [id number] for JAD MICHAEL POCT-GLUCOSE [id number] 11:36:00 Test Item Value Reference Range Interpretation Comments POC-GLUCOSE METER 95 mg/dL 70-110 : TESTED A T [facility] 6720 (BEAKER) (test code = DASIA Garcia [facility], 1538) 59836: Admissions Dean/Techni estefani ID = [id number] for JULIO STEWART BLOOD [id number] 06:44:00 Test Item Value Reference Range Interpretation [...] gram 1123) positive cocci in clusters BLOOD [id number] 06:43:00 Test Item Value Reference Interpretation Comments [...] 1123) gram positive cocci in clusters POCT-GLUCOSE [id number] 21:17:00 Test Item Value Reference Range Interpretation Comments POC-GLUCOSE METER 160 mg/dL 70-110 H : TESTED A T [facility] 6720 (BEAKER) (test code = [facility], 1538) 68127: Admissions Dean/Techni estefani ID = [id number] for Co Kathe nguyen POCT-GLUCOSE [id number] 12:08:00 Test Item Value Reference Range Interpretation Comments POC-GLUCOSE METER 100 mg/dL 70-110 : TESTED A T [facility] 6720 (BEAKER) (test code = [facility], 1538) 45755: Admissions Dean/Techni estefani ID = [id number] for SA NTJACOB CASTANEDA CBC W/PLT COUNT & AUTO [id number] 08:20:00 Test Item Value Reference Range Interpretation [...] K/uL 0.00-0.00 H (CELLAVISION)(BEAKER) (test code = 5068) TOTAL COUNTED (BEAKER) (test code = 100 1351) SMUDGE CELLS (BEAKER) (test code = Present 1371) GIANT PLATELETS (BEAKER) (test code Present = 313) POIKILOCYTES (BEAKER) (test code = 1+ few 966) ARTIFACT (CELLAVISION)(BEAKER) Present (test code = 3432) PLATELET CONCENTRATION Adequate (CELLAVISION)(BEAKER) (test code = 3438) Admissions Dean ID - Lazara Bryant comments: Slide comments:POCT-GLUCOSE METER 2020-09-19 07:56:00 Test Item Value Reference Range Interpretation Comments POC-GLUCOSE METER 109 mg/dL 70-110 : TESTED A T [facility] 6720 (BEAKER) (test code = [facility], 1538) 17838: Admissions Dean/Techni estefani ID = [id number] for JACOB LYLES BASIC METABOLIC [id number] 06:28:00 Test Item Value Reference Range Interpretation [...] S NOT APPLICABLE FOR DIALYSIS PATIEN TS. Admissions Dean ID - DANITZA [id number] 06:27:00 Test Item Value Reference Range Interpretation Comments MAGNESIUM (BEAKER) (test code = 3.0 mg/dL 1.6-2.6 H 627) Admissions Dean ID - DANITZA [id number] 06:27:00 Test Item Value Reference Range Interpretation Comments PHOSPHORUS (BEAKER) (test code = 5.4 mg/dL 2.3-4.7 H 604) Admissions Dean ID - DANITZA RAMIREZOCT-GLUCOSE [id number] 21:24:00 Test Item Value Reference Range Interpretation Comments POC-GLUCOSE METER 202 mg/dL 70-110 H : TESTED A T [facility] 6720 (BEAKER) (test code = [facility], 1538) 58849: Admissions Dean/Techni estefani ID = [id number] for SJ HERBERT SARS-COV2/RT-PCR ([facility])2020-09-18 18:45:00 Test Item Value Reference Range Interpretation Comments SARS-COV2/RT-PCR (test Negative Not Detected, Negative, code = 9045179) See external report for linked test SARS-COV-2 PERFORMING LAB [facility] (test code = 0860600) Negative result for this test determines that [...] 564(g) of the Act.Fact Sheet for Healthcare Providers:https://www.Scrapblog.[employer]/sites/default/files/product/documents/Fact_Shee j_RK_Pfebkkujd_Hmec_KLDA-EeW-2.pdfFact Sheet for Healthcare Patients:https://www.Scrapblog.[employer]/sites/default/files/product/ documents/Zdfc_Tzqol_Jkomtefx_Ijjr_JTFW-ZqD-7.pdfPerforming Laboratory:[facility].[place], [place] [address]UAGX-YRZJOKP METER 2020-09-18 17:18:00 Test Item Value Reference Range Interpretation Comments POC-GLUCOSE METER 101 mg/dL 70-110 : TESTED A T [facility] 6720 (BEAKER) (test code = [facility], 1538) 24964: Admissions Dean/Techni estefani ID = [id number] for FA GUNNER CRAWFORD POCT-GLUCOSE [id number] 12:20:00 Test Item Value Reference Range Interpretation Comments POC-GLUCOSE METER 117 mg/dL 70-110 H : TESTED A T [facility] 6720 (BEAKER) (test code = [facility], 1538) 48614: Admissions Dean/Techni estefani ID = [id number] for FA TY GUNNER BASIC METABOLIC [id number] 08:24:00 Test Item Value Reference Range Interpretation [...] S NOT APPLICABLE FOR DIALYSIS PATIEN TS. Admissions Dean ID - DANITZA Pettyrator ID - ADMINPOCT-GLUCOSE [id number] 08:19:00 Test Item Value Reference Range Interpretation Comments POC-GLUCOSE METER 103 mg/dL 70-110 : TESTED A T [facility] 6720 (BEAKER) (test code = [facility], 153) 35948: Admissions Dean/Techni estefani ID = [id number] for FA TY GUNNER [id number] 07:33:00 Test Item Value Reference Range Interpretation Comments MAGNESIUM (BEAKER) 2.9 mg/dL 1.6-2.6 H Specimen slightly (test code = 627) hemolyzed Admissions Dean ID - DANITZA [id number] 07:33:00 Test Item Value Reference Range Interpretation Comments PHOSPHORUS (BEAKER) 3.6 mg/dL 2.3-4.7 Specimen slightly (test code = 604) hemolyzed Admissions Dean ID - DANITZA LCBC W/PLT COUNT & AUTO [id number] 04:53:00 Test Item Value Reference Range Interpretation [...] PERCENT (BEAKER) (test code = 2801) POCT-GLUCOSE [id number] 21:15:00 Test Item Value Reference Range Interpretation Comments POC-GLUCOSE METER 115 mg/dL 70-110 H : TESTED Vikas T [facility] (BEAKER) (test code = [facility], 1538) 21044: Admissions Dean/Techni estefani ID = [id number] for SJ HERBERT BLOOD CULTURE IDENTIFICATION [id number] 21:10:00 Test Item Value Reference Interpretation Comments Range LISTERIA MONOCYTOGENES Not Not detected (test code = 20151208) detected STAPHYLOCOCCUS (test Detected Not detected A code = 20160210) STAPHYLOCOCCUS AUREUS Detected Not detected A Methic illin-susceptible (test code = 20160211) S. aur eus (MSSA)First-francesco e therapy: Cefazolin or Ox acillin (Oxacillin pref erred if PRINCIPAL TECHNOLOGIST involvement ) ID CONSULTATION REQUIREDStaphyl ococcus aureus DETECTED MecA NOT DETECTED Refere nce Range: Not Detected STREPTOCOCCUS (test Not Not detected code = 20160212) detected STREPTOCOCCUS Not Not detected AGALACTIAE (GROUP B) detected (test code = 0612035) STREPTOCOCCUS Not Not detected PNEUMONIAE (test code detected = 20151211) STREPTOCOCCUS PYOGENES Not Not detected (GROUP A) (test code = detected 8340890) ACINETOBACTER Not Not detected BAUMANNII (test code = detected 4757370) HAEMOPHILUS INFLUENZAE Not Not detected (test code = 1136778) detected NEISSERIA MENINGITIDIS Not Not detected (test code = 3055629) detected ENTEROBACTERIACEAE Not Not detected (test code = 9333412) detected ENTEROBACTER CLOACOE Not Not detected COMPLEX (test code = detected 8672288) KLEBSIELLA OXYTOCA Not Not detected (test code = 3251072) detected KLEBSIELLA PNEUMONIAE Not Not detected (test code = 1650) detected PROTEUS (test code = Not Not detected 8478530) detected SERRATIA MARCESCENS Not Not detected (test code = 1644289) detected CAMI ALBICANS (test Not Not detected code = 9928416) detected CAMI GLABRATA (test Not Not detected code = 1835888) detected CAMI KRUSEI (test Not Not detected code = 8613291) detected CAMI PARAPSILOSIS Not Not detected (test code = 0887336) detected CAMI TROPICALIS Not Not detected (test code = 7501022) detected ESCHERICHIA COLI (test Not Not detected code = 2740853) detected METHICILLIN-RESISTANCE Not Not detected Note: Antimicrobial GENE (test code = detected resistance can occur via 9292884) multiple mechan isms. A Not Detected re sult for the DajiabaoArray antimicrobial r esistance gene assays lance s not indicate antimi crobial susceptibility. Subculturing is required for species identification and susceptibility testing of isolates. VANCOMYCIN-RESISTANCE GENE (test code = 9271857) CARBAPENEM-RESISTANCE GENE (test code = 4468998) ENTEROCOCCUS-BEAKER Not Not detected (test code = 5954912) detected PSEUDOMONAS Not Not detected AERUGINOSA-BEAKER detected (test code = 5479406) Other bacteria and resistance markers not targeted by this PCR panel cannot be excluded; therefore clinical correlation and follow up of serology, culture results, and other molecular studies is required. The results are not intended to be used as the sole means for clinical diagnosis or patient management decisions. This sample was tested at the [facility] using the FlowPlay Blood Culture ID Panel. It is FDA cleared and has been verified and approved by the [facility] for clinical use. This laboratory is CLIA-certified and College ofAmerican Pathologists (CAP)-accredited to perform high complexity testing.HEPATITIS B SURFACE [id number] 18:09:00 Test Item Value Reference Range Interpretation Comments HEPATITIS B SURFACE ANTIGEN (2) Nonreactive Nonreactive (BEAKER) (test code = 2585) Specimen is considered negative for HBsAg.POCT-GLUCOSE [id number] 17:13:00 Test Item Value Reference Range Interpretation Comments POC-GLUCOSE METER 127 mg/dL 70-110 H : TESTED A T [facility] 6720 (BEAKER) (test code = [facility], 1538) 59921: Admissions Dean/Techni estefani ID = [id number] for GUNNER PANDYA POCT-GLUCOSE [id number] 12:12:00 Test Item Value Reference Range Interpretation Comments POC-GLUCOSE METER 99 mg/dL 70-110 : TESTED A T [facility] 6720 (BEAKER) (test code = [facility], 1538) 73445: Admissions Dean/Techni estefani ID = [id number] for GUNNER MUHAMMAD CBC W/PLT COUNT & AUTO [id number] 08:34:00 Test Item Value Reference Range Interpretation [...] CONCENTRATION Adequate (CELLAVISION)(BEAKER) (test code = 3438) Admissions Dean ID - Lazara Manny comments: Slide comments:[id number] 05:34:00 Test Item Value Reference Range Interpretation Comments MAGNESIUM (BEAKER) 2.8 mg/dL 1.6-2.6 H Specimen slightly (test code = 627) hemolyzed Admissions Dean ID - JAQUELINE [id number] 05:34:00 Test Item Value Reference Range Interpretation Comments PHOSPHORUS (BEAKER) 4.0 mg/dL 2.3-4.7 Specimen slightly (test code = 604) hemolyzed Admissions Dean ID - JAQUELINE MBASIC METABOLIC [id number] 05:34:00 Test Item Value Reference Range Interpretation [...] S NOT APPLICABLE FOR DIALYSIS PATIEN TS. Admissions Dean ID - JAQUELINE MRAD, FOOT, MIN 3 VIEWS, [id number] 20:44:00Reason for exam:->[facility] : 1960 Sex: MFINAL [...] is not ruled out. Signed: Moi Feldman Verified Date/Time: 09/16/2020 20:44:14 Reading Location: [facility] C013W Consult Reading Room (CELLAVISION [...] CONCENTRATION Adequate (CELLAVISION)(BEAKER) (test code = 3438) Admissions Dean ID - Maggie comments: Slide comments:C-REACTIVE PROTEIN 2020-09-16 19:59:00 Test Item Value Reference Range Interpretation Comments C-REACTIVE PROTEIN (BEAKER) (test 10.23 mg/dL 0.00-0.50 H code = 676) Admissions Dean ID - BSBASIC METABOLIC [id number] 19:59:00 Test Item Value Reference Range Interpretation [...] S NOT APPLICABLE FOR DIALYSIS PATIEN TS. Admissions Dean ID - [id number] 19:56:00 Test Item Value Reference Range Interpretation [...] exclusion of thrombosis is within 95-100% range. PT/[id number] 19:54:00 Test Item Value Reference Range Interpretation [...] for patients with mechanical heart valves.LACTIC ACID, [id number] 19:54:00 Test Item Value Reference Range Interpretation Comments LACTATE BLOOD VENOUS (2) (BEAKER) 1.16 mmol/L 0.50-2.20 (test code = 2872) Admissions Dean ID - BSCBC W/PLT COUNT & AUTO [id number] 19:45:00 Test Item Value Reference Range Interpretation [...] (test code = 994) seen BASIC METABOLIC [id number] 11:06:00 Test Item Value Reference Range Interpretation [...] S NOT APPLICABLE FOR DIALYSIS PATIEN TS. Admissions Dean ID - EMERSONCBC (HEMOGRAM ONLY)2020-06-19 06:37:00 Test [...] 0-0 (BEAKER) (test code = 413) SARS-COV2/RT-PCR ([facility])2020-06-16 13:14:00 Test Item Value Reference Range Interpretation Comments SARS-COV2/RT-PCR (test Negative Not Detected, Negative, code = 5101197) See external report for linked test SARS-COV-2 PERFORMING LAB [facility] (test code = 8596471) Negative result for this test determines that [...] 564(g) of the Act.Fact Sheet for Healthcare Providers:https://www.Scrapblog.[employer]/sites/default/files/product/documents/Fact_Shee v_WC_Fmglrbtps_Cbnk_GSNO-KiH-9.pdfFact Sheet for Healthcare Patients:https://www.Scrapblog.[employer]/sites/default/files/product/ documents/Vrvy_Dpelq_Lwogamqr_Tcex_YYPK-GoQ-2.pdfPerforming Laboratory:[facility], [place] [id number] 06:05:00 Test Item Value Reference Range Interpretation Comments PHOSPHORUS (BEAKER) (test code = 4.4 mg/dL 2.3-4.7 604) Admissions Dean ID - JAQUELINE MPOCT-GLUCOSE [id number] 21:46:00 Test Item Value Reference Range Interpretation Comments POC-GLUCOSE METER 124 mg/dL 70-110 H : TESTED A T [facility] 6720 (BEAKER) (test code = [facility], 1538) 36015: Admissions Dean/Techni estefani ID = [id number] for Zoraida Handley POCT-GLUCOSE [id number] 16:20:00 Test Item Value Reference Range Interpretation Comments POC-GLUCOSE METER 125 mg/dL 70-110 H : TESTED A T [facility] 6720 (BEAKER) (test code = [facility], 1538) 19338: Admissions Dean/Techni estefani ID = [id number] for Jose rizo, Areiona POCT-GLUCOSE [id number] 14:24:00 Test Item Value Reference Range Interpretation Comments POC-GLUCOSE METER 77 mg/dL 70-110 : TESTED A T [facility] 6720 (BEAKER) (test code = [facility], 1538) 31777: Admissions Dean/Techni estefani ID = [id number] for Juan Manuel ia, Areiona BASIC METABOLIC [id number] 08:54:00 Test Item Value Reference Range Interpretation [...] S NOT APPLICABLE FOR DIALYSIS PATIEN TS. Admissions Dean ID - EDASICBC W/PLT COUNT & AUTO [id number] 08:49:00 Test Item Value Reference Range Interpretation [...] PERCENT (BEAKER) (test code = 2801) POCT-GLUCOSE [id number] 07:58:00 Test Item Value Reference Range Interpretation Comments POC-GLUCOSE METER 75 mg/dL 70-110 : TESTED A T [facility] 6720 (BEAKER) (test code = [facility], 153) 47519: Admissions Dean/Techni estefani ID = [id number] for Juan Manuel iams, Areiona FUNGUS CULTURE + [id number] 01:12:00 Test Item Value Reference Range Interpretation Comments CULTURE (BEAKER) A <1+ Cami (test code = duobushaemuloni i 1095) FUNGUS SMEAR No fungi seen (BEAKER) (test code = 1406) POCT-GLUCOSE [id number] 21:05:00 Test Item Value Reference Range Interpretation Comments POC-GLUCOSE METER 113 mg/dL 70-110 H : TESTED A T [facility] 6720 (BEAKER) (test code = [facility], 1538) 53027: Admissions Dean/Techni estefani ID = [id number] for RON GODWIN POCT-GLUCOSE [id number] 17:14:00 Test Item Value Reference Range Interpretation Comments POC-GLUCOSE METER 104 mg/dL 70-110 : TESTED A T [facility] 6720 (BEAKER) (test code = [facility], 1538) 51720: Admissions Dean/Techni estefani ID = [id number] for PRINCESS LAURA POCT-GLUCOSE [id number] 11:30:00 Test Item Value Reference Range Interpretation Comments POC-GLUCOSE METER 112 mg/dL 70-110 H : TESTED A T [facility] 6720 (BEAKER) (test code = [facility], [facility]8) 43930: Admissions Dean/Techni estefani ID = [id number] for PRINCESS LAURA POCT-GLUCOSE [id number] 09:11:00 Test Item Value Reference Range Interpretation Comments POC-GLUCOSE METER 128 mg/dL 70-110 H : TESTED A T [facility] 6720 (BEAKER) (test code = [facility], [facility]8) 91329: Admissions Dean/Techni estefani ID = [id number] for PRINCESS LAURA POCT-GLUCOSE [id number] 21:56:00 Test Item Value Reference Range Interpretation Comments POC-GLUCOSE METER 120 mg/dL 70-110 H : TESTED A T [facility] 6720 (BEAKER) (test code = [facility], [facility]8) 54869: Admissions Dean/Techni estefani ID = [id number] for Zoraida Handley POCT-GLUCOSE [id number] 11:53:00 Test Item Value Reference Range Interpretation Comments POC-GLUCOSE METER 102 mg/dL 70-110 : TESTED A T [facility] 6720 (BEAKER) (test code = [facility], [facility]8) 15419: Admissions Dean/Techni estefani ID = [id number] for Wi lliams, Areiona POCT-GLUCOSE [id number] 08:16:00 Test Item Value Reference Range Interpretation Comments POC-GLUCOSE METER 85 mg/dL 70-110 : TESTED A T [facility] 6720 (BEAKER) (test code = [facility], [facility]8) 77241: Admissions Dean/Techni estefani ID = [id number] for Will iams, Areiona [id number] 04:45:00 Test Item Value Reference Range Interpretation Comments PHOSPHORUS (BEAKER) (test code = 5.3 mg/dL 2.3-4.7 H 604) Admissions Dean ID - BSCBC W/PLT COUNT & AUTO [id number] 04:10:00 Test Item Value Reference Range Interpretation [...] PERCENT (BEAKER) (test code = 2801) POCT-GLUCOSE [id number] 21:00:00 Test Item Value Reference Range Interpretation Comments POC-GLUCOSE METER 145 mg/dL 70-110 H : TESTED A T [facility] 6720 (BEAKER) (test code = [facility], 153) 63477: Admissions Dean/Techni estefani ID = [id number] for JOSE TONGIAREJI LAZCANO [id number] 17:48:00 Test Item Value Reference Range Interpretation Comments PHOSPHORUS (BEAKER) (test code = 4.9 mg/dL 2.3-4.7 H 604) Admissions Dean ID - BSPOCT-GLUCOSE [id number] 15:50:00 Test Item Value Reference Range Interpretation Comments POC-GLUCOSE METER 116 mg/dL 70-110 H : TESTED A T [facility] 6720 ([facility]) (test code = [facility], 153) 85616: Admissions Dean/Techni estefani ID = [id number] for Wi lliams, Areiona POCT-GLUCOSE [id number] 12:42:00 Test Item Value Reference Range Interpretation Comments POC-GLUCOSE METER 86 mg/dL 70-110 : TESTED A T [facility] 6720 ([facility]) (test code = [facility], 153) 31743: Admissions Dean/Techni estefani ID = [id number] for Juan Manuel ia, Areiona POCT-GLUCOSE [id number] 08:21:00 Test Item Value Reference Range Interpretation Comments POC-GLUCOSE METER 108 mg/dL 70-110 : TESTED A T [facility] 6720 ([facility]) (test code = [facility], 153) 32347: Admissions Dean/Techni estefani ID = [id number] for Jose lliams, Areiona POCT-GLUCOSE [id number] 22:07:00 Test Item Value Reference Range Interpretation Comments POC-GLUCOSE METER 118 mg/dL 70-110 H : TESTED A T [facility] 6720 ([facility]) (test code = [facility], 153) 16763: Admissions Dean/Techni estefani ID = [id number] for Zoraida Handley POCT-GLUCOSE [id number] 12:30:00 Test Item Value Reference Range Interpretation Comments POC-GLUCOSE METER 93 mg/dL 70-110 : Notified RN/MD: TESTED ([facility]) ([facility] 67[facility] 1538) [facility], 770 30: Admissions Dean/Techni estefani ID = [id number] for KELSI , COSHA POCT-GLUCOSE [id number] 07:55:00 Test Item Value Reference Range Interpretation Comments POC-GLUCOSE METER 81 mg/dL 70-110 : Notified RN/MD: TESTED ([facility]) (test code = AT [facility] 6720 [facility] 1538) [facility], 770 30: Admissions Dean/Techni estefani ID = [id number] for HADLEY ARGUELLO POCT-GLUCOSE [id number] 22:01:00 Test Item Value Reference Range Interpretation Comments POC-GLUCOSE METER 104 mg/dL 70-110 : TESTED A T [facility] 6720 ([facility]) (test code = [facility], 1538) 95013: Admissions Dean/Techni estefani ID = [id number] for MALGORZATA MORRISON (V) CHRIS POCT-GLUCOSE [id number] 15:55:00 Test Item Value Reference Range Interpretation Comments POC-GLUCOSE METER 95 mg/dL 70-110 : TESTED A T [facility] 6720 ([facility]) (test code = [facility], [facility]8) 27306: Admissions Dean/Techni estefani ID = [id number] for David s, Betzy POCT-GLUCOSE [id number] 11:37:00 Test Item Value Reference Range Interpretation Comments POC-GLUCOSE METER 82 mg/dL 70-110 : TESTED A T [facility] 6720 (BEAKER) (test code = [facility], 1538) 39026: Admissions Dean/Techni estefani ID = [id number] for David s, Betzy POCT-GLUCOSE [id number] 07:28:00 Test Item Value Reference Range Interpretation Comments POC-GLUCOSE METER 75 mg/dL 70-110 : TESTED A T [facility] 6720 (BEAKER) (test code = [facility], 1538) 02905: Admissions Dean/Techni estefani ID = [id number] for David s, Betzy POCT-GLUCOSE [id number] 22:59:00 Test Item Value Reference Range Interpretation Comments POC-GLUCOSE METER 104 mg/dL 70-110 : TESTED A T [facility] 6720 (BEAKER) (test code = [facility], [facility]8) 99841: Admissions Dean/Techni estefani ID = [id number] for TUYET BORJA POCT-GLUCOSE [id number] 16:15:00 Test Item Value Reference Range Interpretation Comments POC-GLUCOSE METER 121 mg/dL 70-110 H : TESTED A T [facility] 6720 (BEAKER) (test code = [facility], 1538) 76169: Admissions Dean/Techni estefani ID = [id number] for Da augustine, Betzy POCT-GLUCOSE [id number] 11:53:00 Test Item Value Reference Range Interpretation Comments POC-GLUCOSE METER 110 mg/dL 70-110 : TESTED A T [facility] 6720 (BEAKER) (test code = [facility], 1538) 11509: Admissions Dean/Techni estefani ID = [id number] for Da vis, Betzy POCT-GLUCOSE [id number] 07:58:00 Test Item Value Reference Range Interpretation Comments POC-GLUCOSE METER 72 mg/dL 70-110 : TESTED A T [facility] 6720 (BEAKER) (test code = [facility], 1538) 71001: Admissions Dean/Techni estefani ID = [id number] for David s Betzy BASIC METABOLIC [id number] 05:59:00 Test Item Value Reference Range Interpretation [...] S NOT APPLICABLE FOR DIALYSIS PATIEN TS. Admissions Dean ID - EDASICBC W/PLT COUNT & AUTO [id number] 05:30:00 Test Item Value Reference Range Interpretation [...] PERCENT (BEAKER) (test code = 2801) POCT-GLUCOSE [id number] 22:53:00 Test Item Value Reference Range Interpretation Comments POC-GLUCOSE METER 90 mg/dL 70-110 : TESTED A T [facility] 6720 (BEAKER) (test code = [facility], 153) 88509: Admissions Dean/Techni estefani ID = [id number] for JUAN MANUEL HOUSERMS, REJI POCT-GLUCOSE [id number] 15:59:00 Test Item Value Reference Range Interpretation Comments POC-GLUCOSE METER 109 mg/dL 70-110 : TESTED A T [facility] 6720 ([facility]) (test code = [facility], 1538) 50259: Admissions Dean/Techni estefani ID = [id number] for Da augustine, Betzy POCT-GLUCOSE [id number] 21:40:00 Test Item Value Reference Range Interpretation Comments POC-GLUCOSE METER 110 mg/dL 70-110 : TESTED A T [facility] 6720 ([facility]) (test code = [facility], 1538) 51653: Admissions Dean/Techni estefani ID = [id number] for JOSE RIZO, REJI POCT-GLUCOSE [id number] 16:44:00 Test Item Value Reference Range Interpretation Comments POC-GLUCOSE METER 110 mg/dL 70-110 : TESTED A T [facility] 6720 (BEAKER) (test code [facility], = 1538) 61269: Admissions Dean/Techni estefani ID = [id number] for WILS ON, SHASTANIE POCT-GLUCOSE [id number] 11:45:00 Test Item Value Reference Range Interpretation Comments POC-GLUCOSE METER 88 mg/dL 70-110 : TESTED A T [facility] 6720 (BEAKER) (test code = [facility], 1538) 33313: Admissions Dean/Techni estefani ID = [id number] for WILS ON, SHASTANIE POCT-GLUCOSE [id number] 08:02:00 Test Item Value Reference Range Interpretation Comments POC-GLUCOSE METER 88 mg/dL 70-110 : TESTED A T [facility] 6720 (BEAKER) (test code = [facility], 1538) 79783: Admissions Dean/Techni estefani ID = [id number] for VICKIE N, MARLENI POCT-GLUCOSE [id number] 21:05:00 Test Item Value Reference Range Interpretation Comments POC-GLUCOSE METER 118 mg/dL 70-110 H : TESTED A T [facility] 6720 (BEAKER) (test code = [facility], 153) 31267: Admissions Dean/Techni estefani ID = [id number] for IRVIN BALDERASNICA POCT-GLUCOSE [id number] 16:34:00 Test Item Value Reference Range Interpretation Comments POC-GLUCOSE METER 131 mg/dL 70-110 H : TESTED A T [facility] 6720 (BEAKER) (test code = [facility], 153) 00089: Admissions Dean/Techni estefani ID = [id number] for FE LDER, STEVE ANAEROBIC [id number] 11:42:00 Test Item Value Reference Range Interpretation Comments CULTURE (BEAKER) (test No anaerobes isolated code = 1095) POCT-GLUCOSE [id number] 21:38:00 Test Item Value Reference Range Interpretation Comments POC-GLUCOSE METER 111 mg/dL 70-110 H : TESTED A T [facility] 6720 (BEAKER) (test code = [facility], 153) 55160: Admissions Dean/Techni estefani ID = [id number] for IRVIN BALDERASNICA POCT-GLUCOSE [id number] 17:39:00 Test Item Value Reference Range Interpretation Comments POC-GLUCOSE METER 106 mg/dL 70-110 : TESTED A T [facility] 6720 (BEAKER) (test code = [facility], 153) 55510: Admissions Dean/Techni estefani ID = [id number] for PA RKER, NE POCT-GLUCOSE [id number] 11:36:00 Test Item Value Reference Range Interpretation Comments POC-GLUCOSE METER 109 mg/dL 70-110 : TESTED A T [facility] 6720 (BEAKER) (test code = [facility], 153) 38979: Admissions Dean/Techni estefani ID = [id number] for PA RKER, NE POCT-GLUCOSE [id number] 08:59:00 Test Item Value Reference Range Interpretation Comments POC-GLUCOSE METER 75 mg/dL 70-110 : TESTED A T [facility] 6720 (BEAKER) (test code = [facility], 1538) 13312: Admissions Dean/Techni estefani ID = [id number] for PRINCESS LANCE POCT-GLUCOSE [id number] 21:58:00 Test Item Value Reference Range Interpretation Comments POC-GLUCOSE METER 103 mg/dL 70-110 : TESTED A T [facility] 6720 (BEAKER) (test code = [facility], 1538) 21746: Admissions Dean/Techni estefani ID = [id number] for Zoraida Handley POCT-GLUCOSE [id number] 17:38:00 Test Item Value Reference Range Interpretation Comments POC-GLUCOSE METER 107 mg/dL 70-110 : TESTED A T [facility] 6720 (BEAKER) (test code = [facility], 1538) 64302: Admissions Dean/Techni estefani ID = [id number] for PRINCESS LAURA POCT-GLUCOSE [id number] 12:56:00 Test Item Value Reference Range Interpretation Comments POC-GLUCOSE METER 125 mg/dL 70-110 H : TESTED A T [facility] 6720 (BEAKER) (test code = [facility], 153) 97472: Admissions Dean/Techni estefani ID = [id number] for PRINCESS LAURA SARS-COV2/RT-PCR ([facility])2020-06-02 09:39:00 Test Item Value Reference Range Interpretation Comments SARS-COV2/RT-PCR (test Negative Not Detected, Negative, code = 0978172) See external report for linked test SARS-COV-2 PERFORMING LAB [facility] (test code = 3734261) Negative result for this test determines that [...] 564(g) of the Act.Fact Sheet for Healthcare Providers:https://www.[employer]/sites/default/files/product/documents/Fact_Shee b_MD_Cthkqvxhd_Fqyo_RDPL-AgQ-5.pdfFact Sheet for Healthcare Patients:https://www.[employer]/sites/default/files/product/ documents/Xric_Cvezp_Sznjqhfv_Iwxd_JVEF-VgX-4.pdfPerforming Laboratory:[facility], [place] [address]QQLT-JPGXPVE METER 2020-06-02 08:48:00 Test Item Value Reference Range Interpretation Comments POC-GLUCOSE METER 124 mg/dL 70-110 H : TESTED A T [facility] 6720 (BEAKER) (test code = DASIA Garcia [facility], 1538) 37020: Admissions Dean/Techni estefani ID = [id number] for LEW VAZQUEZ [facility] BASIC METABOLIC [id number] 08:14:00 Test Item Value Reference Range Interpretation [...] S NOT APPLICABLE FOR DIALYSIS PATIEN TS. Admissions Dean ID - TIAOG [id number] 08:10:00 Test Item Value Reference Range Interpretation Comments PHOSPHORUS (BEAKER) (test code = 7.0 mg/dL 2.3-4.7 H 604) Admissions Dean ID - TIAGO CVITAMIN B12 AND [id number] 07:23:00 Test Item Value Reference Range Interpretation Comments VITAMIN B12 (BEAKER) 441 pg/mL 213-816 (test code = 774) FOLATE (BEAKER) 5.90 ng/mL See_Comment L [Automated message] (test code = 362) The system which generated this result transmitted ref erence range: >=7.00. The reference range was not used to interpr et this result as normal/abnormal . Admissions Dean ID - JAQUELINE WADE, TIBC, % SAT. (WITHOUT FERRITIN)2020-06-02 06:48:00 Test Item Value Reference Range Interpretation Comments IRON (BEAKER) (test code = 547) 29.0 ug/dL 40.0-160.0 L TOTAL IRON BINDING CAPACITY 166 ug/dL 250-450 L (BEAKER) (test code = 769) IRON % SATURATION (2) (BEAKER) 17 % 20-55 L (test code = 2590) Admissions Dean ID - JAQUELINE MCBC (HEMOGRAM ONLY)2020-06-02 06:37:00 [...] 0-0 (BEAKER) (test code = 413) POCT-GLUCOSE [id number] 21:28:00 Test Item Value Reference Range Interpretation Comments POC-GLUCOSE METER 117 mg/dL 70-110 H : TESTED A T [facility] 6720 (BEAKER) (test code = [facility], 1538) 87422: Admissions Dean/Techni estefani ID = [id number] for REJI MONTOYA POCT-GLUCOSE [id number] 17:07:00 Test Item Value Reference Range Interpretation Comments POC-GLUCOSE METER 107 mg/dL 70-110 : TESTED A T [facility] 6720 (BEAKER) (test code = [facility], 1538) 18239: Admissions Dean/Techni estefani ID = [id number] for Kingsley Haley [id number] 16:04:00 Test Item Value Reference Range Interpretation Comments FERRITIN (BEAKER) (test code = 322.82 ng/mL 5.00-275.00 H 361) Admissions Dean ID - DBSURGICALLY OBTAINED CULTURE + GRAM [id number] 12:53:00 Test Item Value Reference Interpretation Comments [...] The system which generated this result transmit drois reference range : Susceptible 0-8 , Resistant [...] gram negative (BEAKER) (test code = rods 177095) GRAM STAIN RESULT <1+ yeast (BEAKER) (test code = 257081) POCT-GLUCOSE [id number] 11:55:00 Test Item Value Reference Range Interpretation Comments POC-GLUCOSE METER 125 mg/dL 70-110 H : TESTED A T [facility] 6720 (BEAKER) (test code = [facility], [facility]) 68833: Admissions Dean/Techni estefani ID = [id number] for Brandon tao Charnita POCT-GLUCOSE [id number] 08:56:00 Test Item Value Reference Range Interpretation Comments POC-GLUCOSE METER 85 mg/dL 70-110 : TESTED A T [facility] 6720 (BEAKER) (test code = [facility], [facility]) 49865: Admissions Dean/Techni estefani ID = [id number] for Janneth , Charnita POCT-GLUCOSE [id number] 22:47:00 Test Item Value Reference Range Interpretation Comments POC-GLUCOSE METER 119 mg/dL 70-110 H : TESTED A T [facility] 6720 (BEAKER) (test code = [facility], [facility]) 05936: Admissions Dean/Techni estefani ID = [id number] for REJI MONTOYA POCT-GLUCOSE [id number] 16:45:00 Test Item Value Reference Range Interpretation Comments POC-GLUCOSE METER 123 mg/dL 70-110 H : TESTED A T [facility] 6720 (BEAKER) (test code = [facility], [facility]) 67567: Admissions Dean/Techni estefani ID = [id number] for PRINCESS LAURA POCT-GLUCOSE [id number] 11:29:00 Test Item Value Reference Range Interpretation Comments POC-GLUCOSE METER 129 mg/dL 70-110 H : TESTED A T [facility] 6720 (BEAKER) (test code = [facility], 1538) 89229: Admissions Dean/Techni estefani ID = [id number] for LEW VAZQUEZ [facility] POCT-GLUCOSE [id number] 08:48:00 Test Item Value Reference Range Interpretation Comments POC-GLUCOSE METER 98 mg/dL 70-110 : TESTED A T [facility] 6720 (BEAKER) (test code = [facility], 1538) 04187: Admissions Dean/Techni estefani ID = [id number] for FAITH WARD [facility] BASIC METABOLIC [id number] 06:32:00 Test Item Value Reference Range Interpretation [...] S NOT APPLICABLE FOR DIALYSIS PATIEN TS. Admissions Dean ID - ADMINCBC (HEMOGRAM ONLY)2020-05-31 05:42:00 Test [...] 0-0 (BEAKER) (test code = 413) POCT-GLUCOSE [id number] 21:12:00 Test Item Value Reference Range Interpretation Comments POC-GLUCOSE METER 169 mg/dL 70-110 H : TESTED A T [facility] 6720 (BEAKER) (test code = [facility], 153) 35373: Admissions Dean/Techni estefani ID = [id number] for Zoraida Handley POCT-GLUCOSE [id number] 16:05:00 Test Item Value Reference Range Interpretation Comments POC-GLUCOSE METER 158 mg/dL 70-110 H : TESTED A T [facility] 6720 (BEAKER) (test code = [facility], 153) 81997: Admissions Dean/Techni estefani ID = [id number] for MELODY DOS SANTOS POCT-GLUCOSE [id number] 12:40:00 Test Item Value Reference Range Interpretation Comments POC-GLUCOSE METER 113 mg/dL 70-110 H : TESTED A T [facility] 6720 (BEAKER) (test code = [facility], 153) 44599: Admissions Dean/Techni estefani ID = [id number] for MELODY DOS SANTOS SPIN/CONCENTRATION [id number] 09:31:00 Test Item Value Reference Range Interpretation Comments CONCENTRATION CHARGED (BEAKER) (test Done code = 2657) POCT-GLUCOSE [id number] 08:07:00 Test Item Value Reference Range Interpretation Comments POC-GLUCOSE METER 116 mg/dL 70-110 H : TESTED A T [facility] 6720 (BEAKER) (test code = [facility], 1538) 42543: Admissions Dean/Techni estefani ID = [id number] for MELODY DOS SANTOS POCT-GLUCOSE [id number] 21:03:00 Test Item Value Reference Range Interpretation Comments POC-GLUCOSE METER 194 mg/dL 70-110 H : TESTED A T [facility] 6720 (BEAKER) (test code = [facility], 1538) 36377: Admissions Dean/Techni estefani ID = [id number] for REJI MONTOYA HEPATITIS B SURFACE [id number] 19:08:00 Test Item Value Reference Range Interpretation Comments HEPATITIS B SURFACE ANTIGEN (2) Nonreactive Nonreactive (BEAKER) (test code = 2585) Specimen is considered negative for HBsAg.POCT-GLUCOSE [id number] 17:02:00 Test Item Value Reference Range Interpretation Comments POC-GLUCOSE METER 142 mg/dL 70-110 H : TESTED A T [facility] 6720 (BEAKER) (test code = [facility], 1538) 94137: Admissions Dean/Techni estefani ID = [id number] for EDSON MEJIA GLUCOSE-STAT [id number] 07:13:00 Test Item Value Reference Range Interpretation Comments GLUCOSE RANDOM (BEAKER) (test code 122 mg/dL 70-110 H = 652) HGB/HCT (H&H) - STAT [id number] 07:13:00 Test Item Value Reference Range Interpretation Comments HEMOGLOBIN (BEAKER) (test code = 10.0 GM/DL 13.0-16.8 L 410) HEMATOCRIT (BEAKER) (test code = 29.0 % 40.0-50.0 L 411) POTASSIUM-STAT [id number] 07:11:00 Test Item Value Reference Range Interpretation Comments POTASSIUM (BEAKER) (test code = 4.6 meq/L 3.6-5.5 379) POCT-GLUCOSE [id number] 06:01:00 Test Item Value Reference Range Interpretation Comments POC-GLUCOSE METER 118 mg/dL 70-110 H : TESTED A T [facility] 6720 (NOE) (test code SHENA [facility], = 1538) 16359: Admissions Dean/Techni estefani ID = [id number] for JORD AN, LACRYSTAL SARS-COV2/RT-PCR ([facility])2020-05-28 03:28:00 Test Item Value Reference Range Interpretation Comments SARS-COV2/RT-PCR (test Negative Not Detected, Negative, code = 4088324) See external report for linked test SARS-COV-2 PERFORMING LAB [facility] KEELY (test code = 1153194) Negative result for this test determines that [...] of the Act.Testing was performed using the PinkUP SARS-CoV-2 assay.Fact Sheet for Healthcare Providers:https://www.[employer]/ari/ HY_OILS-XfH-2_LFC_Zqpj_Ablnl_95-082129.pdfFact Sheet for Healthcare Patients:https://www.molecular.ab radha/ari/EQ_XLSQ-ZiM-6_Wccycst_Hwub_Uzslo_HA_17-419560N6.pdfPerforming Laboratory:[facility], [place] [address]QSL AND CREATININE [id number] 14:16:00 Test Item Value Reference Range Interpretation Comments BLOOD UREA NITROGEN 60 mg/dL 7-21 H (BEAKER) (test code = 354) CREATININE (BEAKER) 7.43 mg/dL 0.57-1.25 H (test code = 358) BUN/CREAT RATIO 8 For a normal (BEAKER) (test code individu al on a = 2765407062) normal diet, t he reference inter anthony for the mass ra chuck ranges between 12:1 and 20:1 (BUN i n mg/dL/creatinin e in mg/dL) EGFR (BEAKER) (test 8 mL/min/1.73 ESTIMAT ED GFR IS code = 1092) sq m NOT ACCURATE CREATININE CLEARANCE IN PREDICTING GLOMERULAR FILTRATION RATE . ESTIMATED GFR I S NOT APPLICABLE FOR DIALYSIS PATIEN TS. Admissions Dean ID - ANTONY [id number] 14:15:00 Test Item Value Reference Range Interpretation Comments SODIUM (BEAKER) (test code = 381) 136 meq/L 136-145 POTASSIUM (BEAKER) (test code = 4.0 meq/L 3.5-5.1 379) CHLORIDE (BEAKER) (test code = 382) 96 meq/L 98-107 L CO2 (BEAKER) (test code = 355) 25 meq/L 22-29 Admissions Dean ID - ANTONY [id number] 14:15:00 Test Item Value Reference Range Interpretation Comments GLUCOSE RANDOM (BEAKER) (test code 164 mg/dL 70-105 H = 652) Admissions Dean ID - ANTONY [id number] 14:01:00 Test Item Value Reference Range Interpretation [...] is 2.5-3.5 for patients with mechanical heart valves.[id number] 13:54:00 Test Item Value Reference Range Interpretation Comments HEMOGLOBIN (BEAKER) (test code = 10.3 GM/DL 13.7-17.5 L 410) Admissions Dean ID - [id number] CULTURE + SMEAR (NON-SPUTUM)2020-04-29 [...] code = 994) seen COVID 19 INHOUSE [id number] 18:00:00 Test Item Value Reference Range Interpretation Comments COVID 19 INHOUSE AG NEGATIVE Negative Per manu facturer, (test code = negative result s should [id number]) be treated aspr esumptive and, if inconsi [...] co nsistent with COVID-19. FUNGUS CULTURE + [id number] 00:50:00 Test Item Value Reference Range Interpretation Comments CULTURE (BEAKER) (test No fungus isolated in code = 1095) 28 days FUNGUS SMEAR (BEAKER) No fungi seen (test code = 1406) BASIC METABOLIC [id number] 16:48:00 Test Item Value Reference Range Interpretation [...] = CA) 8.4 MG/DL 8.5-10.1 L SARS-COV2/RT-PCR ([facility])2020-03-27 14:01:00 Test Item Value Reference Range Interpretation Comments SARS-COV2/RT-PCR (test Negative Not Detected, Negative, code = 4119287) See external report for linked test SARS-COV-2 PERFORMING LAB [facility] (test code = 3125762) Negative result for this test determines that [...] 564(g) of the Act.Fact Sheet for Healthcare Providers:https://www.[employer]/sites/default/files/product/documents/Fact_Shee p_UM_Fczbwlava_Kmmi_UCVO-GyM-0.pdfFact Sheet for Healthcare Patients:https://www.[employer]/sites/default/files/product/ documents/Duui_Nonnt_Rlqdqmbe_Rmtm_HBHC-XyK-0.pdfPerforming Laboratory:[facility] [place] [address].[place], [place] [address]XTMQP CULTURE + GRAM [id number] 09:53:00 Test Item Value Reference Range Interpretation [...] No organisms seen (BEAKER) (test code = 669956) POCT-GLUCOSE [id number] 07:57:00 Test Item Value Reference Range Interpretation Comments POC-GLUCOSE METER 87 mg/dL 70-110 : TESTED A T [facility] 6720 (BEAKER) (test code = [facility], 1538) 61112: Admissions Dean/Techni estefani ID = [id number] for Alix Jo HEMOGLOBIN AND [id number] 06:56:00 Test Item Value Reference Range Interpretation Comments HEMOGLOBIN (BEAKER) (test code = 8.7 GM/DL 13.7-17.5 L 410) HEMATOCRIT (BEAKER) (test code = 28.0 % 40.1-51.0 L 411) Admissions Dean ID - 6000POCT-GLUCOSE [id number] 00:03:00 Test Item Value Reference Range Interpretation Comments POC-GLUCOSE METER 144 mg/dL 70-110 H : TESTED A T [facility] 6720 (BEAKER) (test code = [facility], 1538) 03872: Admissions Dean/Techni estefani ID = [id number] for SA HIGGINS CRYSTAL POCT-GLUCOSE [id number] 18:10:00 Test Item Value Reference Range Interpretation Comments POC-GLUCOSE METER 117 mg/dL 70-110 H : TESTED A T [facility] 6720 (BEAKER) (test code = [facility], 1538) 14817: Admissions Dean/Techni estefani ID = [id number] for Avery Levy BASIC METABOLIC [id number] 16:25:00 Test Item Value Reference Range Interpretation [...] S NOT APPLICABLE FOR DIALYSIS PATIEN TS. Admissions Dean ID Benjie HARDY [id number] 16:08:00 Test Item Value Reference Range Interpretation Comments PHOSPHORUS (BEAKER) (test code = 4.1 mg/dL 2.3-4.7 604) Admissions Dean ID Benjie HARDY FCBC W/PLT COUNT & AUTO [id number] 15:56:00 Test Item Value Reference Range Interpretation [...] PERCENT (BEAKER) (test code = 2801) POCT-GLUCOSE [id number] 11:29:00 Test Item Value Reference Range Interpretation Comments POC-GLUCOSE METER 102 mg/dL 70-110 : TESTED A T [facility] 6720 (BEAKER) (test code = [facility], 153) 88203: Admissions Dean/Techni estefani ID = [id number] for ES QUIVEL, JAD POCT-GLUCOSE [id number] 09:21:00 Test Item Value Reference Range Interpretation Comments POC-GLUCOSE METER 94 mg/dL 70-110 : TESTED A T [facility] 6720 (BEAKER) (test code = [facility], 1538) 58318: Admissions Dean/Techni estefani ID = [id number] for ESQU IVEL, JAD POCT-GLUCOSE [id number] 08:43:00 Test Item Value Reference Range Interpretation Comments POC-GLUCOSE METER 68 mg/dL 70-110 L : TESTED A T [facility] 6720 (BEAKER) (test code = [facility], 1538) 39544: Admissions Dean/Techni estefani ID = [id number] for JAD MICHAEL FUNGUS CULTURE + [id number] 00:31:00 Test Item Value Reference Range Interpretation Comments CULTURE ([facility]) A 1+ Cami (test code = 1095) parapsilo sis FUNGUS SMEAR No fungi seen ([facility]) (test code = 1406) POCT-GLUCOSE [id number] 22:45:00 Test Item Value Reference Range Interpretation Comments POC-GLUCOSE METER 100 mg/dL 70-110 : TESTED A T [facility] ([facility] [facility]) (test code = [facility], 153) 38626: Admissions Dean/Techni estefani ID = [id number] for TEJINDER MORALES POCT-GLUCOSE [id number] 21:50:00 Test Item Value Reference Range Interpretation Comments POC-GLUCOSE METER 121 mg/dL 70-110 H : TESTED A T [facility] ([facility]) (test code = [facility], 1538) 38167: Admissions Dean/Techni estefani ID = [id number] for Ba laiing, Shruthi POCT-GLUCOSE [id number] 17:35:00 Test Item Value Reference Range Interpretation Comments POC-GLUCOSE METER 117 mg/dL 70-110 H : TESTED A T [facility] ([facility]) (test code = [facility], 1538) 98533: Admissions Dean/Techni estefani ID = [id number] for CLAUDIA ROSALESINEMerly, AMADA POCT-GLUCOSE [id number] 11:29:00 Test Item Value Reference Range Interpretation Comments POC-GLUCOSE METER 92 mg/dL 70-110 : TESTED A T [facility] ([facility]) (test code = [facility], 1538) 78866: Admissions Dean/Techni estefani ID = [id number] for MART WING, AMADA POCT-GLUCOSE [id number] 07:20:00 Test Item Value Reference Range Interpretation Comments POC-GLUCOSE METER 76 mg/dL 70-110 : TESTED A T [facility] (BEAKER) (test code = [facility], 153) 54820: Admissions Dean/Techni estefani ID = [id number] for MART WING, AMADA POCT-GLUCOSE [id number] 21:24:00 Test Item Value Reference Range Interpretation Comments POC-GLUCOSE METER 199 mg/dL 70-110 H : TESTED A T [facility] (BEAKER) (test code = DASIA Garcia [place], 1538) 74640: Admissions Dean/Techni estefani ID = [id number] for TEJINDER MORALES POCT-GLUCOSE [id number] 18:07:00 Test Item Value Reference Range Interpretation Comments POC-GLUCOSE METER 135 mg/dL 70-110 H : TESTED A T [facility] (BEAKER) (test code = DASIA Garcia [facility], 1538) 05724: Admissions Dean/Techni estefani ID = [id number] for AMADA MEDRANO CBC W/PLT COUNT & AUTO [id number] 15:25:00 Test Item Value Reference Range Interpretation [...] PERCENT (BEAKER) (test code = 2801) POCT-GLUCOSE [id number] 11:52:00 Test Item Value Reference Range Interpretation Comments POC-GLUCOSE METER 91 mg/dL 70-110 : TESTED A T [facility] (BEAKER) (test code = [facility], 1538) 21717: Admissions Dean/Techni estefani ID = [id number] for AMADA DUKES POCT-GLUCOSE [id number] 07:39:00 Test Item Value Reference Range Interpretation Comments POC-GLUCOSE METER 92 mg/dL 70-110 : TESTED A T [facility] (BEAKER) (test code = [facility], 1538) 41092: Admissions Dean/Techni estefani ID = [id number] for AMADA DUKES BASIC METABOLIC [id number] 07:22:00 Test Item Value Reference Range Interpretation [...] S NOT APPLICABLE FOR DIALYSIS PATIEN TS. Admissions Dean ID - DANITZA LPOCT-GLUCOSE [id number] 21:35:00 Test Item Value Reference Range Interpretation Comments POC-GLUCOSE METER 115 mg/dL 70-110 H : TESTED A T [facility] (BEAKER) (test code = [facility], 1538) 73642: Admissions Dean/Techni estefani ID = [id number] for CRYSTAL RANGEL POCT-GLUCOSE [id number] 17:07:00 Test Item Value Reference Range Interpretation Comments POC-GLUCOSE METER 124 mg/dL 70-110 H : TESTED A T [facility] (BEAKER) (test code = [facility], 1538) 58789: Admissions Dean/Techni estefani ID = [id number] for Alix Guerra POCT-GLUCOSE [id number] 12:54:00 Test Item Value Reference Range Interpretation Comments POC-GLUCOSE METER 96 mg/dL 70-110 : TESTED A T [facility] (BEAKER) (test code = [facility], 1538) 55598: Admissions Dean/Techni estefani ID = [id number] for COLLINS SIFUENTES POCT-GLUCOSE [id number] 08:06:00 Test Item Value Reference Range Interpretation Comments POC-GLUCOSE METER 83 mg/dL 70-110 : TESTED A T [facility] (BEAKER) (test code = [facility], 1538) 19487: Admissions Dean/Techni estefani ID = [id number] for COLLNIS SIFUENTES BASIC METABOLIC [id number] 07:36:00 Test Item Value Reference Range Interpretation [...] S NOT APPLICABLE FOR DIALYSIS PATIEN TS. Admissions Dean ID - PIAYA LPOCT-GLUCOSE [id number] 21:38:00 Test Item Value Reference Range Interpretation Comments POC-GLUCOSE METER 130 mg/dL 70-110 H : TESTED A T [facility] ([facility]) (test code = [facility], [facility]) 35943: Admissions Dean/Techni estefani ID = [id number] for SA HIGGINSCRYSTAL POCT-GLUCOSE [id number] 16:28:00 Test Item Value Reference Range Interpretation Comments POC-GLUCOSE METER 127 mg/dL 70-110 H : [facility] T [facility] (test code = [facility], 1538) 10325: Admissions Dean/Techni estefani ID = [id number] for ES QUIVELJAD POCT-GLUCOSE [id number] 11:41:00 Test Item Value Reference Range Interpretation Comments POC-GLUCOSE METER 143 mg/dL 70-110 H : TESTED A T [facility] (BEAKER) (test code = [facility], 1538) 44915: Admissions Dean/Techni estefani ID = [id number] for ES QUIVEL, JAD POCT-GLUCOSE [id number] 08:03:00 Test Item Value Reference Range Interpretation Comments POC-GLUCOSE METER 86 mg/dL 70-110 : TESTED A T [facility] ([facility]) (test code = [facility], 1538) 50393: Admissions Dean/Techni estefani ID = [id number] for ESQU IVEL, JAD BASIC METABOLIC [id number] 07:41:00 Test Item Value Reference Range Interpretation [...] S NOT APPLICABLE FOR DIALYSIS PATIEN TS. Admissions Dean ID - JAQUELINE MCBC W/PLT COUNT & AUTO [id number] 07:15:00 Test Item Value Reference Range Interpretation [...] PERCENT (BEAKER) (test code = 2801) POCT-GLUCOSE [id number] 21:13:00 Test Item Value Reference Range Interpretation Comments POC-GLUCOSE METER 146 mg/dL 70-110 H : TESTED A T [facility] ([employer]) (test code = [facility], 153) 25087: Admissions Dean/Techni estefani ID = [id number] for SA DEANNA HIGGINSICA POCT-GLUCOSE [id number] 17:37:00 Test Item Value Reference Range Interpretation Comments POC-GLUCOSE METER 140 mg/dL 70-110 H : TESTED A T [facility] ([facility]) (test code = [facility], 153) 55171: Admissions Dean/Techni estefani ID = [id number] for ESTEBAN GARZON JAD POCT-GLUCOSE [id number] 13:12:00 Test Item Value Reference Range Interpretation Comments POC-GLUCOSE METER 78 mg/dL 70-110 : TESTED A T [facility] (BEAKER) (test code = [facility], 1538) 48808: Admissions Dean/Techni estefani ID = [id number] for JAD MICHAEL POCT-GLUCOSE [id number] 07:32:00 Test Item Value Reference Range Interpretation Comments POC-GLUCOSE METER 77 mg/dL 70-110 : TESTED A T [facility] (BEAKER) (test code = [facility], 1538) 85355: Admissions Dean/Techni estefani ID = [id number] for JAD MICHAEL BASIC METABOLIC [id number] 07:14:00 Test Item Value Reference Range Interpretation [...] S NOT APPLICABLE FOR DIALYSIS PATIEN TS. Admissions Dean ID - [id number] 07:04:00 Test Item Value Reference Range Interpretation Comments PHOSPHORUS (BEAKER) (test code = 5.2 mg/dL 2.3-4.7 H 604) Admissions Dean ID - ADMINPOCT-GLUCOSE [id number] 21:39:00 Test Item Value Reference Range Interpretation Comments POC-GLUCOSE METER 148 mg/dL 70-110 H : TESTED A T [facility] (BEAKER) (test code = [facility], 1538) 21191: Admissions Dean/Techni estefani ID = [id number] for TEJINDER MORALES POCT-GLUCOSE [id number] 17:38:00 Test Item Value Reference Range Interpretation Comments POC-GLUCOSE METER 114 mg/dL 70-110 H : TESTED A T [facility] (BEAKER) (test code = [facility], 1538) 38247: Admissions Dean/Techni estefani ID = [id number] for AMADA MEDRANO POCT-GLUCOSE [id number] 16:11:00 Test Item Value Reference Range Interpretation Comments POC-GLUCOSE METER 93 mg/dL 70-110 : TESTED A T [facility] (BEAKER) (test code = [facility], 1538) 11204: Admissions Dean/Techni estefani ID = [id number] for AMADA DUKES POCT-GLUCOSE [id number] 14:27:00 Test Item Value Reference Range Interpretation Comments POC-GLUCOSE METER 98 mg/dL 70-110 : TESTED A T [facility] (BEAKER) (test code = [facility], [facility]8) 03474: Admissions Dean/Techni estefani ID = [id number] for JOYL OR, TEIKA POCT-GLUCOSE [id number] 07:48:00 Test Item Value Reference Range Interpretation Comments POC-GLUCOSE METER 101 mg/dL 70-110 : TESTED A T [facility] (BEAKER) (test code = [facility], 1538) 71696: Admissions Dean/Techni estefani ID = [id number] for AYLA KELLOGG POCT-GLUCOSE [id number] 07:24:00 Test Item Value Reference Range Interpretation Comments POC-GLUCOSE METER 101 mg/dL 70-110 : TESTED A T [facility]20 (BEAKER) (test code = [facility], [facility]8) 75760: Admissions Dean/Techni estefani ID = [id number] for AMADA MEDRANO SARS-COV2/RT-PCR ([facility])2020-03-20 07:17:00 Test Item Value Reference Range Interpretation Comments SARS-COV2/RT-PCR (test Negative Not Detected, Negative, code = 2477142) See external report for linked test SARS-COV-2 PERFORMING LAB [facility] KEELY (test code = 8967493) Negative result for this test determines that [...] Giles SARS-CoV-2 assay.Fact Sheet for Healthcare Providers:https://www.molecular.giles/ari/ GK_CTTT-YyP-6_ZXN_Ikqz_Syyrf_54-353725.pdfFact Sheet for Healthcare Patients:https://www.molecular.ab radha/ari/OH_BDXU-NzZ-5_Hisgpja_Knfv_Uihqi_BP_73-326920W7.pdfPerforming Laboratory:[facility] [place] [address] POCT-GLUCOSE [id number] 21:54:00 Test Item Value Reference Range Interpretation Comments POC-GLUCOSE METER 155 mg/dL 70-110 H : TESTED A T [facility] 6720 (NOE) (test code = DASIA Garcia [facility], 1538) 39027: Admissions Dean/Techni estefani ID = [id number] for TEJINDER MORALES ANAEROBIC [id number] 19:28:00 Test Item Value Reference Range Interpretation Comments CULTURE (BEAKER) (test No anaerobes isolated code = 1095) ANAEROBIC [id number] 19:23:00 Test Item Value Reference Range Interpretation Comments CULTURE (BEAKER) (test No anaerobes isolated code = 1095) POCT-GLUCOSE [id number] 17:26:00 Test Item Value Reference Range Interpretation Comments POC-GLUCOSE METER 128 mg/dL 70-110 H : TESTED A T [facility]20 (BEAKER) (test code = [facility], 1538) 96665: Admissions Dean/Techni estefani ID = [id number] for AMADA MEDRANO POCT-GLUCOSE [id number] 12:04:00 Test Item Value Reference Range Interpretation Comments POC-GLUCOSE METER 93 mg/dL 70-110 : TESTED A T [facility] (BEAKER) (test code = [facility], 1538) 20160: Admissions Dean/Techni estefani ID = [id number] for AMADA DUKES BASIC METABOLIC [id number] 09:28:00 Test Item Value Reference Range Interpretation [...] S NOT APPLICABLE FOR DIALYSIS PATIEN TS. Admissions Dean ID - PIAYA LPOCT-GLUCOSE [id number] 21:30:00 Test Item Value Reference Range Interpretation Comments POC-GLUCOSE METER 133 mg/dL 70-110 H : TESTED A T [facility]20 (BEAKER) (test code = [facility], 1538) 50989: Admissions Dean/Techni estefani ID = [id number] for CRYSTAL RANGEL POCT-GLUCOSE [id number] 19:29:00 Test Item Value Reference Range Interpretation Comments POC-GLUCOSE METER 191 mg/dL 70-110 H : TESTED A T [facility]20 (BEAKER) (test code = [facility], 1538) 72055: Admissions Dean/Techni estefani ID = [id number] for MARIFER WEEKS POCT-GLUCOSE [id number] 11:31:00 Test Item Value Reference Range Interpretation Comments POC-GLUCOSE METER 119 mg/dL 70-110 H : TESTED A T [facility]20 (BEAKER) (test code = [facility], 1538) 86418: Admissions Dean/Techni estefani ID = [id number] for JAD SALGUERO POCT-GLUCOSE [id number] 07:32:00 Test Item Value Reference Range Interpretation Comments POC-GLUCOSE METER 115 mg/dL 70-110 H : TESTED A T [facility]20 (BEAKER) (test code = [facility], 1538) 48569: Admissions Dean/Techni estefani ID = [id number] for JAD SALGUERO BASIC METABOLIC [id number] 06:39:00 Test Item Value Reference Range Interpretation [...] S NOT APPLICABLE FOR DIALYSIS PATIEN TS. Admissions Dean ID - PIAYA LCBC W/PLT COUNT & AUTO [id number] 06:01:00 Test Item Value Reference Range Interpretation [...] PERCENT (BEAKER) (test code = 2801) POCT-GLUCOSE [id number] 21:16:00 Test Item Value Reference Range Interpretation Comments POC-GLUCOSE METER 145 mg/dL 70-110 H : TESTED A T [facility] 6720 (BEAKER) (test code = DASIA QUIS[facility] [place], 1538) 27720: Admissions Dean/Techni estefani ID = [id number] for CRYSTAL RANGEL TISSUE [id number] 19:02:00Surgical Pathology Report Case: [id number] Authorizing Provider: Star Cloud DPM Collected: 03/13/2020 12:32 PM Ordering Location: [facility] Received: 03/13/2020 02:59 PM PERIOPERATIVE SERVICES Pathologist: Vandana Beverly MD Specimen: Metat arsal, Right, base of the first metatarsal bone RIGHT FOOT, BASE OF 1ST METATARSAL, NON-HEALING WOUND, DEBRIDEMENT: - GANGRENOUS NECROSIS INVOLVING SKIN AND SUBCUTANEOUSTISSUE - ACUTE OSTEOMYELITIS, SEVERE Signing Pathologist Direct Phone Line: [phone] signed by Vandana Beverly MD on 03/17/2020 at 7:02 [id number]; [id number] surgical wound, sequela Metatarsal, rightReceived in formalin [...] reveals a gardner-yellow, firm, trabeculated cut surface. Mill Order Scheduler sections are submitted as follows:Section codeA1-skin and soft rxszzlI3-Y8-tsft following decalcificationLEW Pérez HT (ASCP)PERFORMEDThe interpretation of this case included the use of immunohistochemistry or special stains.Control Slides Examined: In-house known positive controls were evaluated along with the test tissue. These control slides run alongside of the patients sample show appropriate staining. Internal positive and negative controls when available are evaluated Immunohistochemistry technical testing was performed at [facility], PathologyLaboratory where it was developed and its [...] to perform high complexity clinical laboratory testing.POCT-GLUCOSE [id number] 17:26:00 Test Item Value Reference Range Interpretation Comments POC-GLUCOSE METER 145 mg/dL 70-110 H : TESTED A T [facility] 6720 (BEAKER) (test code = [facility] [employer] [facility], 1538) 34941: Admissions Dean/Techni estefani ID = [id number] for Sabine Vazquez POCT-GLUCOSE [id number] 07:31:00 Test Item Value Reference Range Interpretation Comments POC-GLUCOSE METER 94 mg/dL 70-110 : TESTED A T [facility] 6720 (BEAKER) (test code = [facility] [employer] [facility], 1538) 30552: Admissions Dean/Techni estefani ID = [id number] for JAD MICHAEL CBC W/PLT COUNT & AUTO [id number] 06:23:00 Test Item Value Reference Range Interpretation [...] PERCENT (BEAKER) (test code = 2801) POCT-GLUCOSE [id number] 06:14:00 Test Item Value Reference Range Interpretation Comments POC-GLUCOSE METER 97 mg/dL 70-110 : TESTED A T [facility] 6720 (BEAKER) (test code = [facility] [place], 1538) 75440: Admissions Dean/Techni estefani ID = [id number] for ARNW INE, TEJINDER BASIC METABOLIC [id number] 06:14:00 Test Item Value Reference Range Interpretation [...] S NOT APPLICABLE FOR DIALYSIS PATIEN TS. Admissions Dean ID - EDASIBLOOD [id number] 00:01:00 Test Item Value Reference Range Interpretation Comments CULTURE (BEAKER) (test No growth in 5 days code = 1095) BLOOD [id number] 00:01:00 Test Item Value Reference Range Interpretation Comments CULTURE (BEAKER) (test No growth in 5 days code = 1095) POCT-GLUCOSE [id number] 21:35:00 Test Item Value Reference Range Interpretation Comments POC-GLUCOSE METER 169 mg/dL 70-110 H : TESTED A T [facility] 6720 (BEAKER) (test code = [facility], 1538) 83925: Admissions Dean/Techni estefani ID = [id number] for JONES TEJINDER SAHNI POCT-GLUCOSE [id number] 17:54:00 Test Item Value Reference Range Interpretation Comments POC-GLUCOSE METER 133 mg/dL 70-110 H : TESTED A T [facility] 6720 (BEAKER) (test code = [facility], 1538) 56272: Admissions Dean/Techni estefani ID = [id number] for JAQUI SKELTON POCT-GLUCOSE [id number] 12:50:00 Test Item Value Reference Range Interpretation Comments POC-GLUCOSE METER 110 mg/dL 70-110 : TESTED A T [facility] (BEAKER) ([facility], 153) 12582: Admissions Dean/Techni estefani ID = [id number] for JAQUI SKELTON SURGICALLY OBTAINED CULTURE + GRAM [id number] 09:39:00 Test Item Value Reference Range Interpretation [...] organisms seen RESULT (BEAKER) (test code = 177575) SURGICALLY OBTAINED CULTURE + GRAM [id number] 09:39:00 Test Item Value Reference Range Interpretation [...] RESULT (BEAKER) negative rods (test code = 425490) POCT-GLUCOSE [id number] 08:12:00 Test Item Value Reference Range Interpretation Comments POC-GLUCOSE METER 88 mg/dL 70-110 : TESTED A T [facility]20 (BEAKER) (test code = [facility] Jose [facility], 1538) 06832: Admissions Dean/Techni estefani ID = [id number] for GAUTAM RUIZ (Krysten)EFRAIN POCT-GLUCOSE [id number] 07:19:00 Test Item Value Reference Range Interpretation Comments POC-GLUCOSE METER 97 mg/dL 70-110 : TESTED A T [facility] 6720 (BEAKER) (test code = [facility], 153) 23577: Admissions Dean/Techni estefani ID = [id number] for NATE JUAN BASIC METABOLIC [id number] 07:19:00 Test Item Value Reference Range Interpretation [...] S NOT APPLICABLE FOR DIALYSIS PATIEN TS. Admissions Dean ID - [id number] 07:08:00 Test Item Value Reference Range Interpretation Comments MAGNESIUM (BEAKER) (test code = 2.1 mg/dL 1.6-2.6 627) Admissions Dean ID - EDASICBC W/PLT COUNT & AUTO [id number] 06:30:00 Test Item Value Reference Range Interpretation [...] PERCENT (BEAKER) (test code = 2801) POCT-GLUCOSE [id number] 20:33:00 Test Item Value Reference Range Interpretation Comments POC-GLUCOSE METER 129 mg/dL 70-110 H : TESTED A T [facility] 6720 (BEAKER) (test code = [facility], 1538) 50963: Admissions Dean/Techni estefani ID = [id number] for JAD SALGUERO POCT-GLUCOSE [id number] 17:20:00 Test Item Value Reference Range Interpretation Comments POC-GLUCOSE METER 108 mg/dL 70-110 : TESTED A T [facility] 6720 (BEAKER) (test code = [facility], 1538) 60397: Admissions Dean/Techni estefani ID = [id number] for SANTOS RIVAS POCT-GLUCOSE [id number] 11:17:00 Test Item Value Reference Range Interpretation Comments POC-GLUCOSE METER 115 mg/dL 70-110 H : TESTED A T [facility] 6720 (BEAKER) (test code = [facility], 1538) 84853: Admissions Dean/Techni estefani ID = [id number] for OK BERTHA, ANYA POCT-GLUCOSE [id number] 08:18:00 Test Item Value Reference Range Interpretation Comments POC-GLUCOSE METER 87 mg/dL 70-110 : TESTED A T [facility] 6720 (BEAKER) (test code = [facility], 1538) 48401: Admissions Dean/Techni estefani ID = [id number] for ARIANNE GALLEGO, JOSEFINACHEL [id number] 07:32:00 Test Item Value Reference Range Interpretation Comments MAGNESIUM (BEAKER) (test code = 2.0 mg/dL 1.6-2.6 627) Admissions Dean ID - EDASIBASIC METABOLIC [id number] 07:32:00 Test Item Value Reference Range Interpretation [...] S NOT APPLICABLE FOR DIALYSIS PATIEN TS. Admissions Dean ID - EDASICBC W/PLT COUNT & AUTO [id number] 07:08:00 Test Item Value Reference Range Interpretation [...] PERCENT (BEAKER) (test code = 2801) POCT-GLUCOSE [id number] 22:22:00 Test Item Value Reference Range Interpretation Comments POC-GLUCOSE METER 180 mg/dL 70-110 H : TESTED A T [facility] 6720 (BEAKER) (test code = DASIA Garcia [facility], 1538) 37418: Admissions Dean/Techni estefani ID = [id number] for CRYSTAL RANGEL HEPATITIS B SURFACE [id number] 17:23:00 Test Item Value Reference Range Interpretation Comments HEPATITIS B SURFACE ANTIGEN (2) Nonreactive Nonreactive (BEAKER) (test code = 2585) Specimen is considered negative for HBsAg.SPIN/CONCENTRATION [id number] 14:24:00 Test Item Value Reference Range Interpretation Comments CONCENTRATION CHARGED (BEAKER) (test Done code = 2657) SPIN/CONCENTRATION [id number] 14:23:00 Test Item Value Reference Range Interpretation Comments CONCENTRATION CHARGED (BEAKER) (test Done code = 2657) POCT-GLUCOSE [id number] 12:00:00 Test Item Value Reference Range Interpretation Comments POC-GLUCOSE METER 84 mg/dL 70-110 : TESTED A T [facility] 6720 (BEAKER) (test code = [facility], 1538) 31551: Admissions Dean/Techni estefani ID = [id number] for AMADA DUKES BASIC METABOLIC [id number] 09:03:00 Test Item Value Reference Range Interpretation [...] S NOT APPLICABLE FOR DIALYSIS PATIEN TS. Admissions Dean ID - GARYZAYRA [id number] 08:43:00 Test Item Value Reference Range Interpretation Comments MAGNESIUM (BEAKER) (test code = 2.4 mg/dL 1.6-2.6 627) Admissions Dean ID - PIZAYRA LPOCT-GLUCOSE [id number] 07:47:00 Test Item Value Reference Range Interpretation Comments POC-GLUCOSE METER 99 mg/dL 70-110 : TESTED A T [facility] 6720 (BEAKER) (test code = [facility], 1538) 59180: Admissions Dean/Techni estefani ID = [id number] for AMADA DUKES POCT-GLUCOSE [id number] 22:12:00 Test Item Value Reference Range Interpretation Comments POC-GLUCOSE METER 139 mg/dL 70-110 H : TESTED A T [facility] 6720 (BEAKER) (test code = [facility], 1538) 15455: Admissions Dean/Techni estefani ID = [id number] for TEJINDER MORALES POCT-GLUCOSE [id number] 17:34:00 Test Item Value Reference Range Interpretation Comments POC-GLUCOSE METER 157 mg/dL 70-110 H : TESTED A T [facility] 6720 (BEAKER) (test code = [facility] [employer] [facility], 1538) 09955: Admissions Dean/Techni estefani ID = [id number] for PRASANNA GALINDO (V) EFRAIN POCT-GLUCOSE [id number] 14:08:00 Test Item Value Reference Range Interpretation Comments POC-GLUCOSE METER 94 mg/dL 70-110 : TESTED A T [facility] 6720 (BEAKER) (test code = [facility], 1538) 09019: Admissions Dean/Techni estefani ID = [id number] for MARTIN SHARMA HGB/HCT (H&H) - STAT [id number] 10:02:00 Test Item Value Reference Range Interpretation Comments HEMOGLOBIN (BEAKER) (test code = 8.5 GM/DL 13.0-16.8 L 410) HEMATOCRIT (BEAKER) (test code = 25.0 % 40.0-50.0 L 411) POTASSIUM-STAT [id number] 09:56:00 Test Item Value Reference Range Interpretation Comments POTASSIUM (BEAKER) (test code = 3.6 meq/L 3.6-5.5 379) POCT-GLUCOSE [id number] 07:53:00 Test Item Value Reference Range Interpretation Comments POC-GLUCOSE METER 97 mg/dL 70-110 : TESTED A T [facility] 6720 (BEAKER) (test code = [facility], 1538) 34428: Admissions Dean/Techni estefani ID = [id number] for LATT IMFELIPA - FLETCHER, COLLINS POCT-GLUCOSE [id number] 22:01:00 Test Item Value Reference Range Interpretation Comments POC-GLUCOSE METER 173 mg/dL 70-110 H : TESTED A T [facility] 6720 (BEAKER) (test code = [facility], 1538) 33648: Admissions Dean/Techni estefani ID = [id number] for JAD SALGUERO POCT-GLUCOSE [id number] 18:20:00 Test Item Value Reference Range Interpretation Comments POC-GLUCOSE METER 161 mg/dL 70-110 H : TESTED A T [facility] (BEAKER) (test code [facility], = 1538) 17418: Admissions Dean/Techni estefani ID = [id number] for LATT IMFELIPA - FLETCHER, COLLINS POCT-GLUCOSE [id number] 12:22:00 Test Item Value Reference Range Interpretation Comments POC-GLUCOSE METER 94 mg/dL 70-110 : TESTED A T [facility] (BEAKER) (test code = [facility], 1538) 88246: Admissions Dean/Techni estefani ID = [id number] for LATT IMORE - FLETCHER, COLLINS SARS-COV2/RT-PCR ([facility])2020-03-12 12:11:00 Test Item Value Reference Range Interpretation Comments SARS-COV2/RT-PCR (test code Negative Not Detected, Negative, = [id number]) See external report for linked test SARS-COV-2 PERFORMING LAB [facility] (test code = 7301877) Negative results do not preclude SARS-CoV-2 infection [...] of the Act.Fact Sheet for Healthcare Pro viders:https://www.[employer]/Documents/Xpert%20Xpress%20SARS%20CoV-2/Fact%20Sh eets/302-3802%33BIGF-TQX-7%20HEALTHCARE%20PROVIDERS%20FACT%20SHEET.pdfFact Sheet for Healthcare Patients:https://www.[employer]/Documents/Xpert%20Xpress%20SARS%20CoV-2/Fact%20Sheets/302-3801%20SARS-COV -2%20PATIENT%20FACT%20SHEET.pdfPerforming Laboratory:[facility], [place] [address]BBRP-QSDARWR [id number] 08:44:00 Test Item Value Reference Range Interpretation Comments POC-GLUCOSE METER 92 mg/dL 70-110 : TESTED A T [facility] 6720 (NOE) (test code = DASIA Garcia [facility], 1538) [address]: Admissions Dean/Techni estefani ID = [id number] for COLLINS SIFUENTES HEMOGLOBIN [id number] 08:17:00 Test Item Value Reference Range Interpretation Comments HEMOGLOBIN A1C (NOE) (test code = 5.6 % 4.3-6.1 368) HEPATIC FUNCTION [id number] 06:07:00 Test Item Value Reference Range Interpretation [...] code = < U/L 6-55 L 347) Admissions Dean ID - ADMINC-REACTIVE [id number] 06:06:00 Test Item Value Reference Range Interpretation Comments C-REACTIVE PROTEIN (BEAKER) (test 3.99 mg/dL 0.00-0.50 H code = 676) Admissions Dean ID - ADMINBASIC METABOLIC [id number] 06:06:00 Test Item Value Reference Range Interpretation [...] S NOT APPLICABLE FOR DIALYSIS PATIEN TS. Admissions Dean ID - ADMINPROTHROMBIN [id number] 04:50:00 Test Item Value Reference Range Interpretation [...] S NOT APPLICABLE FOR DIALYSIS PATIEN TS. Admissions Dean ID - DANITZA LOperator ID - DANITZA LCBC W/PLT COUNT & AUTO [id number] 23:42:00 Test Item Value Reference Range Interpretation [...] PERCENT (BEAKER) (test code = 2801) PROTHROMBIN [id number] 23:21:00 Test Item Value Reference Range Interpretation [...] is2.5-3.5 for patients wiht mechanical heart valves.POCT-GLUCOSE [id number] 22:00:00 Test Item Value Reference Range Interpretation Comments POC-GLUCOSE METER 203 mg/dL 70-110 H : TESTED A T [facility] 6720 ([facility]) (test code = DASIA QU[place], 1538) 39[address]: Admissions Dean/Techni estefani ID = [id number] for ROJELIO BAUM CBC W/AUTO [id number] 19:57:00 Test Item Value Reference Range Interpretation [...] (test code NO = MDIFF) COMPREHENSIVE METABOLIC [id number] 09:31:00 Test Item Value Reference Range Interpretation [...] MDRD formula.Chronic kidney disease is defined as [facility] er kidney damageor GFR <60 [...] ALKP) to change in reagent. COMPREHENSIVE METABOLIC [id number] 09:24:00 Test Item Value Reference Range Interpretation [...] IUnit/L 45-117 code = ALKP) CBC W/AUTO [id number] 08:56:00 Test Item Value Reference Range Interpretation [...] is no long er being reported. HGB [id number] 21:19:00 Test Item Value Reference Range Interpretation Comments HEMOGLOBIN (test code 7.0 gram/dL 13.0-17.5 L = HGB) HEMATOCRIT (test code 21.8 % 42.0-52.0 LL Resul ts called to = HCT) NICHO BuitragoLAB. 2118Critical re sults verified and re ad back by Nurse? Y HGB [id number] 20:40:00 Test Item Value Reference Range Interpretation Comments HEMOGLOBIN (test code = HGB) 6.9 gram/dL 13.0-17.5 L HEMATOCRIT (test code = HCT) 22.1 % 42.0-52.0 L FUNGUS CULTURE + [id number] 16:32:00 Test Item Value Reference Range Interpretation Comments CULTURE (BEAKER) (test No fungus isolated in code = 1095) 28 days FUNGUS SMEAR (BEAKER) No fungal elements seen (test code = 1406) FUNGUS CULTURE + [id number] 16:32:00 Test Item Value Reference Range Interpretation [...] bacilli (test code = 994) seen POCT-GLUCOSE [id number] 12:16:00 Test Item Value Reference Range Interpretation Comments POC-GLUCOSE METER 104 mg/dL 70-110 : TESTED A T [facility] 6720 (BEAKER) (test code = [facility], 1538) [address]: Admissions Dean/Techni estefani ID = [id number] for FRANCOISE CISNREOS POCT-GLUCOSE [id number] 07:26:00 Test Item Value Reference Range Interpretation Comments POC-GLUCOSE METER 89 mg/dL 70-110 : TESTED A T [facility] 6720 (BEAKER) (test code = [facility] [employer] [facility] [place], 1538) 16008: Admissions Dean/Techni estefani ID = [id number] for FRANCOISE FRIED SARS-COV2/RT-PCR ([facility])2020-01-22 07:13:00 Test Item Value Reference Range Interpretation Comments SARS-COV2/RT-PCR (test Negative Not Detected, Negative, code = 5349196) See external report for linked test SARS-COV-2 PERFORMING LAB [facility] KEELY (test code = 2368168) Negative result for this test determines that [...] the Giles SARS-CoV-2 assay.Fact Sheet for Healthcare Providers:https://www.[employer].giles/ari/ HC_MYDP-GkC-2_XPF_Gtbj_Kcamx_18-261984.pdfFact Sheet for Healthcare Patients:https://www.[employer] radha/ari/YB_XJFF-IsM-4_Bdndxhi_Vnzy_Sudjx_NL_21-807985F3.pdfPerforming Laboratory:[facility] [place] [address] BASIC METABOLIC [id number] 06:27:00 Test Item Value Reference Range Interpretation [...] S NOT APPLICABLE FOR DIALYSIS PATIEN TS. Admissions Dean ID - EDASIPOCT-GLUCOSE [id number] 21:15:00 Test Item Value Reference Range Interpretation Comments POC-GLUCOSE METER 123 mg/dL 70-110 H : TESTED A T [facility] 6720 (BEAKER) ([facility], = 1538) 65346: Admissions Dean/Techni estefani ID = [id number] for GIBRAN BRADEN WHITEHEAD HEPATITIS B SURFACE [id number] 18:16:00 Test Item Value Reference Range Interpretation Comments HEPATITIS B SURFACE ANTIGEN (2) Nonreactive Nonreactive (BEAKER) (test code = 2585) Specimen is considered negative for HBsAg.POCT-GLUCOSE [id number] 16:50:00 Test Item Value Reference Range Interpretation Comments POC-GLUCOSE METER 110 mg/dL 70-110 : TESTED A T [facility] 6720 (BEAKER) (test code = DASIA Garcia [facility] [place], 1538) 94570: Admissions Dean/Techni estefani ID = [id number] for MONISHA SCHAEFER POCT-GLUCOSE [id number] 07:55:00 Test Item Value Reference Range Interpretation Comments POC-GLUCOSE METER 75 mg/dL 70-110 : TESTED A T [facility] 6720 (BEAKER) (test code = [facility], 1538) 91619: Admissions Dean/Techni estefani ID = [id number] for MONISHA BLANCHARD BASIC METABOLIC [id number] 05:59:00 Test Item Value Reference Range Interpretation [...] S NOT APPLICABLE FOR DIALYSIS PATIEN TS. Admissions Dean ID - EDASIPOCT-GLUCOSE [id number] 19:48:00 Test Item Value Reference Range Interpretation Comments POC-GLUCOSE METER 133 mg/dL 70-110 H : TESTED A T [facility] 6720 (BEAKER) (test code = [facility], 1538) 20264: Admissions Dean/Techni estefani ID = [id number] for MALGORZATA PRINCE (V)CHRIS POCT-GLUCOSE [id number] 16:50:00 Test Item Value Reference Range Interpretation Comments POC-GLUCOSE METER 106 mg/dL 70-110 : TESTED A T [facility] 6720 (BEAKER) (test code = [facility], 1538) 25786: Admissions Dean/Techni estefani ID = [id number] for SHABNAM JOSE POCT-GLUCOSE [id number] 11:54:00 Test Item Value Reference Range Interpretation Comments POC-GLUCOSE METER 104 mg/dL 70-110 : TESTED A T [facility] 6720 (BEAKER) (test code = DASIA Garcia [facility], 1538) 643[address]: Admissions Dean/Techni estefani ID = [id number] for SHABNAM JOSE POCT-GLUCOSE [id number] 07:53:00 Test Item Value Reference Range Interpretation Comments POC-GLUCOSE METER 88 mg/dL 70-110 : PrevTst on Ambulance: (BEAKER) (test code = TESTED AT [facility] 6720 1538) SHENA [facility] [place], [address]: Admissions Dean/Techni estefani ID = [id number] for SHABNAM KUMAR BASIC METABOLIC [id number] 04:56:00 Test Item Value Reference Range Interpretation [...] S NOT APPLICABLE FOR DIALYSIS PATIEN TS. Admissions Dean ID - EDASICBC W/PLT COUNT & AUTO [id number] 04:15:00 Test Item Value Reference Range Interpretation [...] PERCENT (BEAKER) (test code = 2801) POCT-GLUCOSE [id number] 20:55:00 Test Item Value Reference Range Interpretation Comments POC-GLUCOSE METER 128 mg/dL 70-110 H : TESTED A T [facility] 6720 (BEAKER) (test code = DAS[place], 1538) 46661: Admissions Dean/Techni estefani ID = [id number] for FE RNANDO (V), KARI POCT-GLUCOSE [id number] 17:32:00 Test Item Value Reference Range Interpretation Comments POC-GLUCOSE METER 116 mg/dL 70-110 H : TESTED A T [facility] 6720 (BEAKER) ([place], [address]: code = 1538) Admissions Dean/Techni estefani ID = [id number] for [place] SINDI LEÓN IN HEPATITIS B SURFACE [id number] 07:59:00 Test Item Value Reference Range Interpretation Comments HEPATITIS B SURFACE ANTIBODY < mIU/mL <8.0 (BEAKER) (test code = 647) Admissions Dean ID - ADMINBASIC METABOLIC [id number] 06:46:00 Test Item Value Reference Range Interpretation [...] S NOT APPLICABLE FOR DIALYSIS PATIEN TS. Admissions Dean ID - ADMINCBC W/PLT COUNT & AUTO [id number] 05:21:00 Test Item Value Reference Range Interpretation [...] code = 2801) HEPATITIS B CORE ANTIBODY, [id number] 03:01:00 Test Item Value Reference Range Interpretation Comments HEPATITIS B CORE TOTAL ANTIBODY Nonreactive Nonreactive ([facility]) (test code = 497) Admissions Dean ID - ADMINPOCT-GLUCOSE [id number] 22:59:00 Test Item Value Reference Range Interpretation Comments POC-GLUCOSE METER 110 mg/dL 70-110 : TESTED A T [facility] 6720 ([facility]) (test code = DASIA Garcia [facility] [place], 1538) 57986: Admissions Dean/Techni estefani ID = [id number] for Avery Levy POCT-GLUCOSE [id number] 12:01:00 Test Item Value Reference Range Interpretation Comments POC-GLUCOSE METER 107 mg/dL 70-110 : Notified RN/MD: ([facility]) (test code = TESTED AT [facility] 6720 1538) [facility], [address]: Admissions Dean/Techni estefani ID = [id number] for HADLEY MELISSA POCT-GLUCOSE [id number] 07:44:00 Test Item Value Reference Range Interpretation Comments POC-GLUCOSE METER 95 mg/dL 70-110 : Notified RN/MD: TESTED ([facility]) (test code = AT [facility] 6720 [facility] 1538) [facility], 7[address]: Admissions Dean/Techni estefani ID = [id number] for HADLEY ARGUELLO BASIC METABOLIC [id number] 07:25:00 Test Item Value Reference Range Interpretation [...] S NOT APPLICABLE FOR DIALYSIS PATIEN TS. Admissions Dean ID - TIAGO CCBC W/PLT COUNT & AUTO [id number] 04:39:00 Test Item Value Reference Range Interpretation [...] PERCENT (BEAKER) (test code = 2801) POCT-GLUCOSE [id number] 22:19:00 Test Item Value Reference Range Interpretation Comments POC-GLUCOSE METER 115 mg/dL 70-110 H : TESTED A T [facility] 6720 (BEAKER) (test code = [facility], 153) 78683: Admissions Dean/Techni estefani ID = [id number] for Wi lliams, Otelia POCT-GLUCOSE [id number] 16:56:00 Test Item Value Reference Range Interpretation Comments POC-GLUCOSE METER 106 mg/dL 70-110 : TESTED A T [facility] 6720 (BEAKER) (test code = [facility], 1538) 28551: Admissions Dean/Techni estefani ID = [id number] for ANNMARIE PENNINGTON POCT-GLUCOSE [id number] 12:23:00 Test Item Value Reference Range Interpretation Comments POC-GLUCOSE METER 130 mg/dL 70-110 H : TESTED A T [facility] 6720 (BEAKER) (test code = [facility], 1538) 60074: Admissions Dean/Techni estefani ID = [id number] for ANNMARIE PENNINGTON POCT-GLUCOSE [id number] 09:12:00 Test Item Value Reference Range Interpretation Comments POC-GLUCOSE METER 96 mg/dL 70-110 : TESTED A T [facility] 6720 (BEAKER) (test code = [facility], 153) 69826: Admissions Dean/Techni estefani ID = [id number] for LIZZ SYLVIA, STEVE BASIC METABOLIC [id number] 06:45:00 Test Item Value Reference Range Interpretation [...] S NOT APPLICABLE FOR DIALYSIS PATIEN TS. Admissions Dean ID - JAQUELINE MCBC W/PLT COUNT & AUTO [id number] 05:59:00 Test Item Value Reference Range Interpretation [...] PERCENT (BEAKER) (test code = 2801) POCT-GLUCOSE [id number] 22:30:00 Test Item Value Reference Range Interpretation Comments POC-GLUCOSE METER 126 mg/dL 70-110 H : TESTED A T [facility] 6720 (BEAKER) (test code = [facility], 153) 9[address]00: Admissions Dean/Techni estefani ID = [id number] for Jose tongallyson, Otelia ANAEROBIC [id number] 19:52:00 Test Item Value Reference Range Interpretation Comments CULTURE (BEAKER) (test No anaerobes isolated code = 1095) ANAEROBIC [id number] 19:52:00 Test Item Value Reference Range Interpretation Comments CULTURE (BEAKER) (test No anaerobes isolated code = 1095) POCT-GLUCOSE [id number] 16:58:00 Test Item Value Reference Range Interpretation Comments POC-GLUCOSE METER 103 mg/dL 70-110 : TESTED A T [facility] 6720 (BEAKER) (test code = [facility], 153) 14428: Admissions Dean/Techni estefani ID = [id number] for LO PEMerly, EVONNE VIAL POCT-GLUCOSE [id number] 11:48:00 Test Item Value Reference Range Interpretation Comments POC-GLUCOSE METER 140 mg/dL 70-110 H : TESTED A T [facility] 6720 (BEAKER) (test code = [facility], 153) 74725: Admissions Dean/Techni estefani ID = [id number] for Shai Waltersole POCT-GLUCOSE [id number] 07:22:00 Test Item Value Reference Range Interpretation Comments POC-GLUCOSE METER 96 mg/dL 70-110 : TESTED A T [facility] 6720 (BEAKER) (test code = [place], 1538) 887[address]: Admissions Dean/Techni estefani ID = [id number] for Ambar Dominguez (cont ract) BASIC METABOLIC [id number] 06:35:00 Test Item Value Reference Range Interpretation [...] S NOT APPLICABLE FOR DIALYSIS PATIEN TS. Admissions Dean ID - EDASICBC W/PLT COUNT & AUTO [id number] 06:02:00 Test Item Value Reference Range Interpretation [...] PERCENT (BEAKER) (test code = 2801) POCT-GLUCOSE [id number] 22:01:00 Test Item Value Reference Range Interpretation Comments POC-GLUCOSE METER 151 mg/dL 70-110 H : TESTED A T [facility] 6720 (BEAKER) (test code = [facility], 153) 74915: Admissions Dean/Techni estefani ID = [id number] for MARCY MUIR POCT-GLUCOSE [id number] 17:02:00 Test Item Value Reference Range Interpretation Comments POC-GLUCOSE METER 121 mg/dL 70-110 H : TESTED A T [facility] 6720 (BEAKER) (test code = [facility], 1538) 73242: Admissions Dean/Techni estefani ID = [id number] for EDSON MEJIA POCT-GLUCOSE [id number] 10:53:00 Test Item Value Reference Range Interpretation Comments POC-GLUCOSE METER 114 mg/dL 70-110 H : TESTED A T [facility] 6720 (BEAKER) (test code = DASIA Garcia [facility], 153) 35123: Admissions Dean/Techni estefani ID = [id number] for EDSON MEJIA SURGICALLY OBTAINED CULTURE + GRAM [id number] 09:02:00 Test Item Value Reference Range Interpretation [...] CLINICAL consultati on with MICROBIOLOGY LAB the [facility] microbiology laboratory.Refe r to previous [...] negative RESULT (BEAKER) rods (test code = 304056) POCT-GLUCOSE [id number] 07:42:00 Test Item Value Reference Range Interpretation Comments POC-GLUCOSE METER 85 mg/dL 70-110 : TESTED A T [facility] 6720 (BEAKER) (test code = CHRISTOSMT Jose [facility], 1538) 01356: Admissions Dean/Techni estefani ID = [id number] for EDSON ZARAGOZA BASIC METABOLIC [id number] 06:13:00 Test Item Value Reference Range Interpretation [...] S NOT APPLICABLE FOR DIALYSIS PATIEN TS. Admissions Dean ID - EDASICBC W/PLT COUNT & AUTO [id number] 05:33:00 Test Item Value Reference Range Interpretation [...] PERCENT (BEAKER) (test code = 2801) POCT-GLUCOSE [id number] 22:55:00 Test Item Value Reference Range Interpretation Comments POC-GLUCOSE METER 91 mg/dL 70-110 : TESTED A T [facility] 6720 (BEAKER) (test code = [facility], 1538) 25635: Admissions Dean/Techni estefani ID = [id number] for DARRELL LUDWIG POCT-GLUCOSE [id number] 16:20:00 Test Item Value Reference Range Interpretation Comments POC-GLUCOSE METER 123 mg/dL 70-110 H : TESTED A T [facility] 6720 (BEAKER) (test code = [facility], 1538) 86117: Admissions Dean/Techni estefani ID = [id number] for REJI SNEED POCT-GLUCOSE [id number] 11:41:00 Test Item Value Reference Range Interpretation Comments POC-GLUCOSE METER 142 mg/dL 70-110 H : TESTED A T [facility] 6720 (BEAKER) (test code = [facility] Jose [facility], 1538) 40672: Admissions Dean/Techni estefani ID = [id number] for REJI SNEED POCT-GLUCOSE [id number] 09:19:00 Test Item Value Reference Range Interpretation Comments POC-GLUCOSE METER 115 mg/dL 70-110 H : TESTED A T [facility] 6720 (BEAKER) (test code = [facility] Jose [facility], 1538) 13208: Admissions Dean/Techni estefani ID = [id number] for REJI SNEED BASIC METABOLIC [id number] 06:17:00 Test Item Value Reference Range Interpretation [...] S NOT APPLICABLE FOR DIALYSIS PATIEN TS. Admissions Dean ID - JAQUELINE MCBC W/PLT COUNT & AUTO [id number] 05:08:00 Test Item Value Reference Range Interpretation [...] PERCENT (BEAKER) (test code = 2801) POCT-GLUCOSE [id number] 21:32:00 Test Item Value Reference Range Interpretation Comments POC-GLUCOSE METER 138 mg/dL 70-110 H : TESTED A T [facility] 6720 (BEAKER) (test code = [place], 1538) 27744: Admissions Dean/Techni estefani ID = [id number] for HALI GARCIA SARS-COV2/RT-PCR ([facility])2020-01-13 16:42:00 Test Item Value Reference Range Interpretation Comments SARS-COV2/RT-PCR (test Negative Not Detected, Negative, code = 8599743) See external report for linked test SARS-COV-2 PERFORMING LAB [facility] KEELY (test code = 4586253) Negative result for this test determines that [...] the Giles SARS-CoV-2 assay.Fact Sheet for Healthcare Providers:https://www.[employer].giles/ari/ DO_WUIV-LvY-2_ZED_Dklu_Nvhko_75-235637.pdfFact Sheet for Healthcare Patients:https://www.[employer].ab radha/ari/BV_UUOX-MzO-5_Dcotaoc_Xgce_Oixie_AQ_43-622968Z3.pdfPerforming Laboratory:[facility] [place] [address] POCT-GLUCOSE [id number] 15:53:00 Test Item Value Reference Range Interpretation Comments POC-GLUCOSE METER 177 mg/dL 70-110 H : TESTED A T [facility] 6720 (BEAKER) ([place], [address]: code = 1538) Admissions Dean/Techni estefani ID = [id number] for [place] PASTORGHESESINDI IN POCT-GLUCOSE [id number] 11:29:00 Test Item Value Reference Range Interpretation Comments POC-GLUCOSE METER 132 mg/dL 70-110 H : TESTED A T [facility] 6720 (BEAKER) ([place], [address]: code = 1538) Admissions Dean/Techni estefani ID = [id number] for [place] AGUILARTWAN HUNT VINNYJose IN SURGICALLY OBTAINED CULTURE + GRAM [id number] 08:54:00 Test Item Value Reference Range Interpretation Comments CULTURE (BEAKER) A 1+ Same org anism has been (test code = 1095) isolated from cultures(s) of the same bod y site within 3 days. Repeat identification and susceptibility testing performed only after consultation wi th the clinical microb iology laboratory.Refe r to previous cultur e ofPseudomonas a eruginosa POCT-GLUCOSE [id number] 07:31:00 Test Item Value Reference Range Interpretation Comments POC-GLUCOSE METER 124 mg/dL 70-110 H : TESTED A T [facility] 6720 (BEAKER) ([place], [address]: code = 1538) Admissions Dean/Techni estefani ID = [id number] for [place] HUNT VINNYJose IN POCT-GLUCOSE [id number] 22:46:00 Test Item Value Reference Range Interpretation Comments POC-GLUCOSE METER 185 mg/dL 70-110 H : TESTED A T [facility] 6720 (BEAKER) (test code = DASIA Garcia [place], 1538) [address]: Admissions Dean/Techni estefani ID = [id number] for SALAZAR MONTOYAID POCT-GLUCOSE [id number] 16:38:00 Test Item Value Reference Range Interpretation Comments POC-GLUCOSE METER 153 mg/dL 70-110 H : TESTED A T [facility] 6720 (BEAKER) (test code = DAISA Garcia [facility], 1538) [address]: Admissions Dean/Techni estefani ID = [id number] for HADLEY MELISSA POCT-GLUCOSE [id number] 12:15:00 Test Item Value Reference Range Interpretation Comments POC-GLUCOSE METER 151 mg/dL 70-110 H : Notified RN/MD: (BEAKER) (test code = TESTED AT [facility] 6720 1538) SHE[place] [facility], [address]: Admissions Dean/Techni estefani ID = [id number] for MOLLY ESCAMILLA, HADLEY WOUND CULTURE + GRAM [id number] 09:32:00 Test Item Value Reference Range Interpretation [...] No organisms seen (BEAKER) (test code = 516906) POCT-GLUCOSE [id number] 07:11:00 Test Item Value Reference Range Interpretation Comments POC-GLUCOSE METER 121 mg/dL 70-110 H : Notified RN/MD: (BEAKER) (test code = TESTED AT [facility] 4996 4291) [place], [address]: Admissions Dean/Techni estefani ID = [id number] for HADLEY MELISSA BASIC METABOLIC [id number] 05:27:00 Test Item Value Reference Range Interpretation [...] S NOT APPLICABLE FOR DIALYSIS PATIEN TS. Admissions Dean ID - EDASICBC W/PLT COUNT & AUTO [id number] 04:50:00 Test Item Value Reference Range Interpretation [...] PERCENT (BEAKER) (test code = 2801) POCT-GLUCOSE [id number] 21:56:00 Test Item Value Reference Range Interpretation Comments POC-GLUCOSE METER 196 mg/dL 70-110 H : TESTED A T [facility] 6720 (BEAKER) (test code = [place], 1538) [address]: Admissions Dean/Techni estefani ID = [id number] for WEEMS ALYCIA, ELELL BLOOD [id number] 17:00:00 Test Item Value Reference Range Interpretation Comments CULTURE (BEAKER) (test No growth in 5 days code = 1095) BLOOD [id number] 17:00:00 Test Item Value Reference Range Interpretation Comments CULTURE (BEAKER) (test No growth in 5 days code = 1095) POCT-GLUCOSE [id number] 15:32:00 Test Item Value Reference Range Interpretation Comments POC-GLUCOSE METER 132 mg/dL 70-110 H : TESTED A T [facility] 6720 (BEAKER) (test code = [facility], 1538) 87896: Admissions Dean/Techni estefani ID = [id number] for Juliano Aleman SPIN/CONCENTRATION [id number] 14:39:00 Test Item Value Reference Range Interpretation Comments CONCENTRATION CHARGED (BEAKER) (test Done code = 2657) SPIN/CONCENTRATION [id number] 14:39:00 Test Item Value Reference Range Interpretation Comments CONCENTRATION CHARGED (BEAKER) (test Done code = 2657) POCT-GLUCOSE [id number] 13:00:00 Test Item Value Reference Range Interpretation Comments POC-GLUCOSE METER 187 mg/dL 70-110 H : TESTED A T [facility] 6720 (BEAKER) (test code = [facility], 1538) 45191: Admissions Dean/Techni estefani ID = [id number] for Juliano Aleman [id number] 11:53:00 Test Item Value Reference Range Interpretation Comments PHOSPHORUS (BEAKER) (test code = 2.9 mg/dL 2.3-4.7 604) Admissions Dean ID - ADMINPOCT-GLUCOSE [id number] 09:45:00 Test Item Value Reference Range Interpretation Comments POC-GLUCOSE METER 117 mg/dL 70-110 H : TESTED A T [facility] 6720 (BEAKER) (test code = [facility], 1538) 26939: Admissions Dean/Techni estefani ID = [id number] for LISA DALLAS BASIC METABOLIC [id number] 05:46:00 Test Item Value Reference Range Interpretation [...] S NOT APPLICABLE FOR DIALYSIS PATIEN TS. Admissions Dean ID - ADMINCBC W/PLT COUNT & AUTO [id number] 05:13:00 Test Item Value Reference Range Interpretation [...] PERCENT (BEAKER) (test code = 2801) POCT-GLUCOSE [id number] 22:36:00 Test Item Value Reference Range Interpretation Comments POC-GLUCOSE METER 214 mg/dL 70-110 H : TESTED A T [facility] 6720 (BEAKER) (test code = [facility], 153) 42635: Admissions Dean/Techni estefani ID = [id number] for JOSHUA GONZALEZ POCT-GLUCOSE [id number] 19:08:00 Test Item Value Reference Range Interpretation Comments POC-GLUCOSE METER 106 mg/dL 70-110 : TESTED A T [facility] 6720 (BEAKER) (test code = [facility], 153) [id number]: Admissions Dean/Techni estefani ID = [id number] for ROSE GONZALES POCT-GLUCOSE [id number] 12:38:00 Test Item Value Reference Range Interpretation Comments POC-GLUCOSE METER 114 mg/dL 70-110 H : TESTED A T [facility] 6720 (BEAKER) (test code = [facility], 153) 05561: Admissions Dean/Techni estefani ID = [id number] for KHADRA SKELTON POCT-GLUCOSE [id number] 10:42:00 Test Item Value Reference Range Interpretation Comments POC-GLUCOSE METER 121 mg/dL 70-110 H : TESTED A T [facility] 6720 (BEAKER) (test code = [facility], 1538) 03888: Admissions Dean/Techni estefani ID = [id number] for KHADRA SKELTON BASIC METABOLIC [id number] 06:21:00 Test Item Value Reference Range Interpretation [...] S NOT APPLICABLE FOR DIALYSIS PATIEN TS. Admissions Dean ID - JAQUELINE [id number] 06:18:00 Test Item Value Reference Range Interpretation Comments PHOSPHORUS (BEAKER) (test code = 2.6 mg/dL 2.3-4.7 604) Admissions Dean ID - JAQUELINE [facility] W/PLT COUNT & AUTO [id number] 05:50:00 Test Item Value Reference Range Interpretation [...] PERCENT (BEAKER) (test code = 2801) POCT-GLUCOSE [id number] 21:36:00 Test Item Value Reference Range Interpretation Comments POC-GLUCOSE METER 158 mg/dL 70-110 H : TESTED A T [facility] 6720 (BEAKER) ([facility] [place], = 1538) 82696: Admissions Dean/Techni estefani ID = [id number] for ROMULO MCLEAN POCT-GLUCOSE [id number] 17:12:00 Test Item Value Reference Range Interpretation Comments POC-GLUCOSE METER 212 mg/dL 70-110 H : TESTED A T [facility] 6720 (BEAKER) (test code = [facility], 1538) 54396: Admissions Dean/Techni estefani ID = [id number] for OL MOS, SUREKHA POCT-GLUCOSE [id number] 11:24:00 Test Item Value Reference Range Interpretation Comments POC-GLUCOSE METER 159 mg/dL 70-110 H : TESTED A T [facility] 6720 (BEAKER) (test code = [facility], 1538) 14976: Admissions Dean/Techni estefani ID = [id number] for OL MOS, SUREKHA POCT-GLUCOSE [id number] 10:21:00 Test Item Value Reference Range Interpretation Comments POC-GLUCOSE METER 111 mg/dL 70-110 H : TESTED A T [facility] 6720 (BEAKER) (test code = [facility], 1538) 71910: Admissions Dean/Techni estefani ID = [id number] for [facility] BASIC METABOLIC [id number] 05:04:00 Test Item Value Reference Range Interpretation [...] S NOT APPLICABLE FOR DIALYSIS PATIEN TS. Admissions Dean ID - JAQUELINE [id number] 04:57:00 Test Item Value Reference Range Interpretation Comments MAGNESIUM (BEAKER) (test code = 2.0 mg/dL 1.6-2.6 627) Admissions Dean ID - JAQUELINE [id number] 04:57:00 Test Item Value Reference Range Interpretation Comments PHOSPHORUS (BEAKER) (test code = 2.5 mg/dL 2.3-4.7 604) Admissions Dean SAVANNA PARSONS [facility] W/PLT COUNT & AUTO [id number] 04:37:00 Test Item Value Reference Range Interpretation [...] PERCENT (BEAKER) (test code = 2801) POCT-GLUCOSE [id number] 22:46:00 Test Item Value Reference Range Interpretation Comments POC-GLUCOSE METER 163 mg/dL 70-110 H : TESTED A T [facility] 6720 (BEAKER) (test code = [facility], 1538) 48398: Admissions Dean/Techni estefani ID = [id number] for TUYET BORJA POCT-GLUCOSE [id number] 16:09:00 Test Item Value Reference Range Interpretation Comments POC-GLUCOSE METER 141 mg/dL 70-110 H : TESTED A T [facility] 6720 (BEAKER) (test code = [facility], 1538) 57168: Admissions Dean/Techni estefani ID = [id number] for Wi llis, Tabby POCT-GLUCOSE [id number] 11:19:00 Test Item Value Reference Range Interpretation Comments POC-GLUCOSE METER 119 mg/dL 70-110 H : TESTED A T [facility] 6720 (BEAKER) (test code = [facility], 1538) 86861: Admissions Dean/Techni estefani ID = [id number] for Wi llis, Tabby POCT-GLUCOSE [id number] 08:29:00 Test Item Value Reference Range Interpretation Comments POC-GLUCOSE METER 102 mg/dL 70-110 : TESTED A T [facility] 6720 (BEAKER) (test code = [facility], 1538) 65304: Admissions Dean/Techni estefani ID = [id number] for ARCELIA SUAZO [id number] 06:50:00 Test Item Value Reference Range Interpretation Comments FERRITIN (BEAKER) (test code = 623.64 ng/mL 5.00-275.00 H 361) Admissions Dean ID - ADMINIRON, TIBC, % SAT. (WITHOUT FERRITIN)2020-01-08 06:28:00 Test Item Value Reference Range Interpretation Comments IRON (BEAKER) (test code = 547) 17.0 ug/dL 40.0-160.0 L TOTAL IRON BINDING CAPACITY 128 ug/dL 250-450 L (BEAKER) (test code = 769) IRON % SATURATION (2) (BEAKER) 13 % 20-55 L (test code = 2590) Admissions Dean ID - ADMINVANCOMYCIN LEVEL, [id number] 06:26:00 Test Item Value Reference Range Interpretation Comments VANCOMYCIN RANDOM (BEAKER) (test 20.4 ug/mL code = 523) Reference Range: No NormalsOperator ID - ADMINBASIC METABOLIC [id number] 02:21:00 Test Item Value Reference Range Interpretation [...] S NOT APPLICABLE FOR DIALYSIS PATIEN TS. Admissions Dean ID - [id number] 02:09:00 Test Item Value Reference Range Interpretation Comments MAGNESIUM (BEAKER) (test code = 1.8 mg/dL 1.6-2.6 627) Admissions Dean ID - [id number] 02:09:00 Test Item Value Reference Range Interpretation Comments PHOSPHORUS (BEAKER) (test code = 2.4 mg/dL 2.3-4.7 604) Admissions Dean ID - [id number] 02:06:00 Test Item Value Reference Range Interpretation Comments PARTIAL THROMBOPLASTIN TIME 46.2 seconds 22.5-36.0 H (BEAKER) (test code = 760) PROTHROMBIN [id number] 02:05:00 Test Item Value Reference Range Interpretation [...] mechanical heart valves.CBC W/PLT COUNT & AUTO [id number] 02:03:00 Test Item Value Reference Range Interpretation [...] PERCENT (BEAKER) (test code = 2801) POCT-GLUCOSE [id number] 00:26:00 Test Item Value Reference Range Interpretation Comments POC-GLUCOSE METER 118 mg/dL 70-110 H : TESTED A T [facility] 6720 (BEAKER) (test code = [facility], 153) 60315: Admissions Dean/Techni estefani ID = [id number] for Ez marleny, Laura POCT-GLUCOSE [id number] 16:33:00 Test Item Value Reference Range Interpretation Comments POC-GLUCOSE METER 154 mg/dL 70-110 H : TESTED A T [facility] 6720 (BEAKER) (test code = [facility], 153) 64427: Admissions Dean/Techni estefani ID = [id number] for CO X, RADHA POCT-GLUCOSE [id number] 13:11:00 Test Item Value Reference Range Interpretation Comments POC-GLUCOSE METER 169 mg/dL 70-110 H : TESTED A T [facility] 6720 (BEAKER) (test code = [facility], 153) 20581: Admissions Dean/Techni estefani ID = [id number] for Me Celi noble CBC W/PLT COUNT & AUTO [id number] 10:36:00 Test Item Value Reference Range Interpretation [...] PERCENT (BEAKER) (test code = 2801) POCT-GLUCOSE [id number] 07:59:00 Test Item Value Reference Range Interpretation Comments POC-GLUCOSE METER 107 mg/dL 70-110 : TESTED A T [facility] 6720 (BEAKER) (test code = [facility] [place], 1538) 44277: Admissions Dean/Techni estefani ID = [id number] for CO XRADHA BASIC METABOLIC [id number] 07:01:00 Test Item Value Reference Range Interpretation [...] S NOT APPLICABLE FOR DIALYSIS PATIEN TS. Admissions Dean ID - ANTONY [id number] 07:00:00 Test Item Value Reference Range Interpretation Comments MAGNESIUM (BEAKER) (test code = 1.9 mg/dL 1.6-2.6 627) Admissions Dean ID - ANTONY [id number] 07:00:00 Test Item Value Reference Range Interpretation Comments PHOSPHORUS (BEAKER) (test code = 4.4 mg/dL 2.3-4.7 604) Admissions Dean ID - ANTONY FVANCOMYCIN LEVEL, [id number] 06:30:00 Test Item Value Reference Range Interpretation Comments VANCOMYCIN RANDOM (BEAKER) (test 16.1 ug/mL code = 523) Reference Range: No NormalsOperator ID - EDASICBC W/PLT COUNT & AUTO [id number] 05:53:00 Test Item Value Reference Range Interpretation [...] PERCENT (BEAKER) (test code = 2801) POCT-GLUCOSE [id number] 23:03:00 Test Item Value Reference Range Interpretation Comments POC-GLUCOSE METER 144 mg/dL 70-110 H : TESTED A T [facility] 6720 (BEAKER) (test code = [facility] [place], 1538) 08811: Admissions Dean/Techni estefani ID = [id number] for Pamela Ortiz SARS-COV2/RT-PCR ([facility]2020-01-06 21:26:00 Test Item Value Reference Range Interpretation Comments SARS-COV2/RT-PCR (test code Negative Not Detected, Negative, = 3866869) See external report for linked test SARS-COV-2 PERFORMING LAB [facility] (test code = 0523859) Negative results do not preclude SARS-CoV-2 infection [...] of the Act.Fact Sheet for Healthcare Pro viders:https://www.Collplant.com/Documents/Xpert%20Xpress%20SARS%20CoV-2/Fact%20Sh eets/302-3302%15HBRM-JDJ-2%20HEALTHCARE%20PROVIDERS%20FACT%20SHEET.pdfFact Sheet for Healthcare Patients:https://www.SavvyCard.[employer]/Documents/Xpert%20Xpress%20SARS%20CoV-2/Fact%20Sheets/3023801%20SARS-COV -2%20PATIENT%20FACT%20SHEET.pdfPerforming Laboratory:[facility] [place], [place] [address]ZVSOKV ACID, [id number] 20:26:00 Test Item Value Reference Range Interpretation Comments LACTATE BLOOD VENOUS (2) (BEAKER) 0.61 mmol/L 0.50-2.20 (test code = 2872) Admissions Dean ID - DBRAPID INFLUENZA A&B [id number] 20:15:00 Test Item Value Reference Range Interpretation Comments RAPID INFLUENZA A AG (BEAKER) Negative Negative, Inconclusive (test code = 1622) RAPID INFLUENZA B AG (BEAKER) Negative Negative, Inconclusive (test code = 1623) RAD, CHEST, 1 VIEW, NON [id number] 17:48:00Reason for exam:->FEVERReason for exam:->EMESISReason for exam:->WOUND CHECKShould this be performed at the bedside?->Yes [facility] 1960 Sex: MFINAL [...] MDReport Verified Date/Time: 01/06/2020 17:48:53 Reading Location: [address] Body Reading Room RAD, FOOT, MIN 3 VIEWS, RIGHT 2020-01-06 17:48:00Reason for exam:->FEVERReason for exam:->EMESISReason for exam:->WOUND CHECK [facility] : 1960 Sex: MFINAL [...] MDReport Verified Date/Time: 01/06/2020 17:48:53 Reading Location: [address] Body Reading Room (CELLAVISION MANUAL [...] CONCENTRATION Adequate (CELLAVISION)(BEAKER) (test code = 3438) Admissions Dean ID - ruth ann Amin comments: Slide comments:[id number] 17:24:00 Test Item Value Reference Range Interpretation Comments PARTIAL THROMBOPLASTIN TIME 37.5 seconds 22.5-36.0 H (BEAKER) (test code = 760) POCT-GLUCOSE [id number] 17:23:00 Test Item Value Reference Range Interpretation Comments POC-GLUCOSE METER 145 mg/dL 70-110 H : Notified RN/MD: (BEAKER) (test code = TESTED AT [facility] 8533 1638) [facility], 00130: Admissions Dean/Techni estefani ID = [id number] for ROMAIN REEVES PROTHROMBIN [id number] 17:23:00 Test Item Value Reference Range Interpretation [...] for patients wiht mechanical heart valves.HEPATIC FUNCTION [id number] 17:01:00 Test Item Value Reference Range Interpretation [...] (test code = 8 U/L 6-55 347) Admissions Dean ID - EDASIBASIC METABOLIC [id number] 17:01:00 Test Item Value Reference Range Interpretation [...] S NOT APPLICABLE FOR DIALYSIS PATIEN TS. Admissions Dean ID - EDASILACTIC ACID, [id number] 17:01:00 Test Item Value Reference Range Interpretation Comments LACTATE BLOOD VENOUS (2) (BEAKER) 1.36 mmol/L 0.50-2.20 (test code = 2872) Admissions Dean ID - EDASICBC W/PLT COUNT & AUTO [id number] 16:55:00 Test Item Value Reference Range Interpretation [...] (BEAKER) (test code = 2801) BLOOD GAS, [id number] 16:47:00 Test Item Value Reference Range Interpretation [...] code = 1819) 21.0 FUNGUS CULTURE + [id number] 17:16:00 Test Item Value Reference Range Interpretation [...] bacilli (test code = 994) seen POCT-GLUCOSE [id number] 11:45:00 Test Item Value Reference Range Interpretation Comments POC-GLUCOSE METER 126 mg/dL 70-110 H : TESTED A T [facility] 6720 (BEAKER) (test code [facility], = 1538) 84840: Admissions Dean/Techni estefani ID = [id number] for WILS ON, SHASTANIE POCT-GLUCOSE [id number] 07:39:00 Test Item Value Reference Range Interpretation Comments POC-GLUCOSE METER 94 mg/dL 70-110 : TESTED Vikas T [facility] 6720 (BEAKER) (test code = [facility] [place], 1538) 33095: Admissions Dean/Techni estefani ID = [id number] for JOSELIN ESCALONA CBC W/PLT COUNT & AUTO [id number] 05:28:00 Test Item Value Reference Range Interpretation [...] (BEAKER) (test code = 2801) BASIC METABOLIC [id number] 05:25:00 Test Item Value Reference Range Interpretation [...] S NOT APPLICABLE FOR DIALYSIS PATIEN TS. Admissions Dean ID - [id number] 05:03:00 Test Item Value Reference Range Interpretation Comments MAGNESIUM (BEAKER) (test code = 2.0 mg/dL 1.6-2.6 627) Admissions Dean ID - DBPOCT-GLUCOSE [id number] 21:31:00 Test Item Value Reference Range Interpretation Comments POC-GLUCOSE METER 138 mg/dL 70-110 H : TESTED A T [facility] 6720 (BEAKER) (test code = [facility], 1538) 44699: Admissions Dean/Techni estefani ID = [id number] for PHIL MURRELL POCT-GLUCOSE [id number] 16:39:00 Test Item Value Reference Range Interpretation Comments POC-GLUCOSE METER 119 mg/dL 70-110 H : TESTED A T [facility] 6720 (BEAKER) (test code = [facility], 1538) 66134: Admissions Dean/Techni estefani ID = [id number] for NEETA ROLLINS POCT-GLUCOSE [id number] 11:42:00 Test Item Value Reference Range Interpretation Comments POC-GLUCOSE METER 133 mg/dL 70-110 H : TESTED A T [facility] 6720 (BEAKER) (test code = [facility], 1538) 58389: Admissions Dean/Techni estefani ID = [id number] for NEETA ROLLINS POCT-GLUCOSE [id number] 07:52:00 Test Item Value Reference Range Interpretation Comments POC-GLUCOSE METER 80 mg/dL 70-110 : TESTED A T [facility] 6720 (BEAKER) (test code = [facility], 1538) 91114: Admissions Dean/Techni estefani ID = [id number] for NEETA ASHLEY HEPATITIS B SURFACE [id number] 07:04:00 Test Item Value Reference Range Interpretation Comments HEPATITIS B SURFACE ANTIGEN (2) Nonreactive Nonreactive (BEAKER) (test code = 2585) Specimen is considered negative for HBsAg.BASIC METABOLIC [id number] 06:35:00 Test Item Value Reference Range Interpretation [...] S NOT APPLICABLE FOR DIALYSIS PATIEN TS. Admissions Dean ID - [id number] 06:26:00 Test Item Value Reference Range Interpretation Comments MAGNESIUM (BEAKER) (test code = 2.1 mg/dL 1.6-2.6 627) Admissions Dean ID - DBCBC W/PLT COUNT & AUTO [id number] 06:10:00 Test Item Value Reference Range Interpretation [...] PERCENT (BEAKER) (test code = 2801) POCT-GLUCOSE [id number] 20:59:00 Test Item Value Reference Range Interpretation Comments POC-GLUCOSE METER 164 mg/dL 70-110 H : TESTED A T [facility] 6720 (BEAKER) (test code = [facility], [facility]8) 65236: Admissions Dean/Techni estefani ID = [id number] for PHIL MURRELL POCT-GLUCOSE [id number] 17:56:00 Test Item Value Reference Range Interpretation Comments POC-GLUCOSE METER 121 mg/dL 70-110 H : TESTED A T [facility] 6720 (BEAKER) (test code = [facility], [facility]8) 10791: Admissions Dean/Techni estefani ID = [id number] for NEETA ROLLINS POCT-GLUCOSE [id number] 14:21:00 Test Item Value Reference Range Interpretation Comments POC-GLUCOSE METER 152 mg/dL 70-110 H : TESTED A T [facility] 6720 (BEAKER) (test code = [facility], 1538) 96322: Admissions Dean/Techni estefani ID = [id number] for KALLI BOOGIE POCT-GLUCOSE [id number] 12:50:00 Test Item Value Reference Range Interpretation Comments POC-GLUCOSE METER 134 mg/dL 70-110 H : TESTED A T [facility] 6720 (BEAKER) (test code = [facility], 1538) 21572: Admissions Dean/Techni estefani ID = [id number] for NOAM GUADARRAMA, NEETA POCT-GLUCOSE [id number] 08:03:00 Test Item Value Reference Range Interpretation Comments POC-GLUCOSE METER 104 mg/dL 70-110 : TESTED A T [facility] 6720 (BEAKER) (test code = [facility] [place], 1538) 53142: Admissions Dean/Techni estefani ID = [id number] for NEETA ROLLINS BASIC METABOLIC [id number] 07:07:00 Test Item Value Reference Range Interpretation [...] S NOT APPLICABLE FOR DIALYSIS PATIEN TS. Admissions Dean ID - [id number] 07:00:00 Test Item Value Reference Range Interpretation Comments MAGNESIUM (BEAKER) (test code = 1.9 mg/dL 1.6-2.6 627) Admissions Dean ID - EDASICBC W/PLT COUNT & AUTO [id number] 06:15:00 Test Item Value Reference Range Interpretation [...] PERCENT (BEAKER) (test code = 2801) POCT-GLUCOSE [id number] 22:35:00 Test Item Value Reference Range Interpretation Comments POC-GLUCOSE METER 152 mg/dL 70-110 H : TESTED Vikas Zaire [facility] 6720 (BEAKER) (test code = [facility] [place], 1538) 98134: Admissions Dean/Techni estefani ID = [id number] for SUMAN FAM POCT-GLUCOSE [id number] 15:46:00 Test Item Value Reference Range Interpretation Comments POC-GLUCOSE METER 93 mg/dL 70-110 : TESTED A T [facility] 6720 (BEAKER) (test code = DAS[facility] [place], 1538) 40329: Admissions Dean/Techni estefani ID = [id number] for Avery Mendoza POCT-GLUCOSE [id number] 08:50:00 Test Item Value Reference Range Interpretation Comments POC-GLUCOSE METER 143 mg/dL 70-110 H : TESTED A T [facility] 6720 (BEAKER) (test code = [facility] [place], 1538) 91842: Admissions Dean/Techni estefani ID = [id number] for IAIN EASTON BASIC METABOLIC [id number] 06:41:00 Test Item Value Reference Range Interpretation [...] S NOT APPLICABLE FOR DIALYSIS PATIEN TS. Admissions Dean ID - [id number] 06:40:00 Test Item Value Reference Range Interpretation Comments MAGNESIUM (BEAKER) (test code = 2.0 mg/dL 1.6-2.6 627) Admissions Dean ID - EDASICBC W/PLT COUNT & AUTO [id number] 05:58:00 Test Item Value Reference Range Interpretation [...] PERCENT (BEAKER) (test code = 2801) SARS-COV2/RT-PCR ([facility])2019-12-21 00:21:00 Test Item Value Reference Range Interpretation Comments SARS-COV2/RT-PCR (test Negative Not Detected, Negative, code = 3614694) See external report for linked test SARS-COV-2 PERFORMING LAB [facility] KEELY (test code = 1735607) Negative result for this test determines that [...] 564(g) of the Act.Fact Sheet for Healthcare Providers:https://www.Dayforceidel.com/sites/default/files/product/documents/Fact_Shee k_YE_Wthfsjgyn_Mbmb_XVRI-GgN-9.pdfFact Sheet for Healthcare Patients:https://www.Scrapblog.com/sites/default/files/product/ documents/Uuvh_Pyvvn_Xeltqegn_Lybn_HMPT-DrP-4.pdfPerforming Laboratory:[facility], [place] [address]ZETX-UJONABA METER 2019-12-20 20:53:00 Test Item Value Reference Range Interpretation Comments POC-GLUCOSE METER 180 mg/dL 70-110 H : Notified RN/MD: (BEAKER) (test code = TESTED AT [facility] 6720 1538) [facility], [address]59: Admissions Dean/Techni estefani ID = [id number] for ELMIRA LOPEZ POCT-GLUCOSE [id number] 16:41:00 Test Item Value Reference Range Interpretation Comments POC-GLUCOSE METER 167 mg/dL 70-110 H : TESTED A T [facility] 6720 (BEAKER) (test code [facility], = 1538) 98610: Admissions Dean/Techni estefani ID = [id number] for WILS ON, JORGESTANIE POCT-GLUCOSE [id number] 12:02:00 Test Item Value Reference Range Interpretation Comments POC-GLUCOSE METER 158 mg/dL 70-110 H : [facility] ([facility]ER[facility] (test code [facility], = 1538) 50924: Admissions Dean/Techni estefani ID = [id number] for WILS ON, SHASTANIE POCT-GLUCOSE [id number] 07:49:00 Test Item Value Reference Range Interpretation Comments POC-GLUCOSE METER 116 mg/dL 70-110 H : TESTED A T [facility] 6720 (BEAKER) (test code [facility], = 1538) 22497: Admissions Dean/Techni estefani ID = [id number] for WILS ON, SHASTANIE BASIC METABOLIC [id number] 06:52:00 Test Item Value Reference Range Interpretation [...] S NOT APPLICABLE FOR DIALYSIS PATIEN TS. Admissions Dean ID - JAQUELINE [id number] 06:40:00 Test Item Value Reference Range Interpretation Comments MAGNESIUM (BEAKER) (test code = 1.9 mg/dL 1.6-2.6 627) Admissions Dean ID - JAQUELINE [facility] W/PLT COUNT & AUTO [id number] 05:53:00 Test Item Value Reference Range Interpretation [...] PERCENT (BEAKER) (test code = 2801) POCT-GLUCOSE [id number] 20:47:00 Test Item Value Reference Range Interpretation Comments POC-GLUCOSE METER 221 mg/dL 70-110 H : Notified RN/MD: ([facility]) (test code = TESTED AT [facility] 6720 153) [facility], [address]127: Admissions Dean/Techni estefani ID = [id number] for ELMIRA LOPEZ ANAEROBIC [id number] 20:08:00 Test Item Value Reference Range Interpretation Comments CULTURE (BEAKER) (test No anaerobes isolated code = 1095) POCT-GLUCOSE [id number] 16:36:00 Test Item Value Reference Range Interpretation Comments POC-GLUCOSE METER 190 mg/dL 70-110 H : [facility] ([facility]ER[facility] (test code [facility], = 1538) 6[address]: Admissions Dean/Techni estefani ID = [id number] for WILS ON, SHASTANIE POCT-GLUCOSE [id number] 09:20:00 Test Item Value Reference Range Interpretation Comments POC-GLUCOSE METER 106 mg/dL 70-110 : TESTED A T [facility] 6720 (BEAKER) (test code [facility], = 1538) 06864: Admissions Dean/Techni estefani ID = [id number] for WILS ON, SHASTANIE BASIC METABOLIC [id number] 05:49:00 Test Item Value Reference Range Interpretation [...] S NOT APPLICABLE FOR DIALYSIS PATIEN TS. Admissions Dean ID - JAQUELINE [id number] 05:48:00 Test Item Value Reference Range Interpretation Comments MAGNESIUM (BEAKER) (test code = 2.1 mg/dL 1.6-2.6 627) Admissions Dean ID - JAQUELINE [facility] W/PLT COUNT & AUTO [id number] 05:44:00 Test Item Value Reference Range Interpretation [...] PERCENT (BEAKER) (test code = 2801) POCT-GLUCOSE [id number] 20:14:00 Test Item Value Reference Range Interpretation Comments POC-GLUCOSE METER 181 mg/dL 70-110 H : TESTED A T [facility] 6720 (BEAKER) (test code = [facility], 153) 39970: Admissions Dean/Techni estefani ID = [id number] for CR BERT, TIA POCT-GLUCOSE [id number] 18:20:00 Test Item Value Reference Range Interpretation Comments POC-GLUCOSE METER 148 mg/dL 70-110 H : TESTED A T [facility] 6720 (BEAKER) (test code = [facility], 153) 32449: Admissions Dean/Techni estefani ID = [id number] for GR AHAM, KAREN BASIC METABOLIC [id number] 06:50:00 Test Item Value Reference Range Interpretation [...] S NOT APPLICABLE FOR DIALYSIS PATIEN TS. Admissions Dean ID - [id number] 06:49:00 Test Item Value Reference Range Interpretation Comments MAGNESIUM (BEAKER) (test code = 2.0 mg/dL 1.6-2.6 627) Admissions Dean ID - EDASICBC W/PLT COUNT & AUTO [id number] 05:57:00 Test Item Value Reference Range Interpretation [...] PERCENT (BEAKER) (test code = 2801) POCT-GLUCOSE [id number] 20:12:00 Test Item Value Reference Range Interpretation Comments POC-GLUCOSE METER 217 mg/dL 70-110 H : TESTED A T [facility] 6720 (BEAKER) (test code = [facility], 1538) 03005: Admissions Dean/Techni estefani ID = [id number] for NELLI SHOOK POCT-GLUCOSE [id number] 14:00:00 Test Item Value Reference Range Interpretation Comments POC-GLUCOSE METER 97 mg/dL 70-110 : TESTED A T [facility] 6720 (BEAKER) (test code = [facility], 1538) 00655: Admissions Dean/Techni estefani ID = [id number] for JOSELIN ESCALONA BASIC METABOLIC [id number] 05:12:00 Test Item Value Reference Range Interpretation [...] S NOT APPLICABLE FOR DIALYSIS PATIEN TS. Admissions Dean ID - JAQUELINE [id number] 05:09:00 Test Item Value Reference Range Interpretation Comments MAGNESIUM (BEAKER) (test code = 2.1 mg/dL 1.6-2.6 627) Admissions Dean ID - JAQUELINE [facility] W/PLT COUNT & AUTO [id number] 04:38:00 Test Item Value Reference Range Interpretation [...] PERCENT (BEAKER) (test code = 2801) POCT-GLUCOSE [id number] 21:09:00 Test Item Value Reference Range Interpretation Comments POC-GLUCOSE METER 156 mg/dL 70-110 H : TESTED A T [facility] 6720 (BEAKER) (test code = [facility] [place], 1538) [address]: Admissions Dean/Techni estefani ID = [id number] for ROSIO DUFF POCT-GLUCOSE [id number] 16:53:00 Test Item Value Reference Range Interpretation Comments POC-GLUCOSE METER 135 mg/dL 70-110 H : TESTED A T [facility] 6720 (BEAKER) (test code [facility], = 1538) 41408: Admissions Dean/Techni estefani ID = [id number] for JOSELIN ESCALONA POCT-GLUCOSE [id number] 11:36:00 Test Item Value Reference Range Interpretation Comments POC-GLUCOSE METER 115 mg/dL 70-110 H : TESTED Vikas Velásquez [facility] 6720 (BEAKER) (test code [facility] [place], = 1538) 54872: Admissions Dean/Techni estefani ID = [id number] for JOSELIN ESCALONA SURGICALLY OBTAINED CULTURE + GRAM [id number] 08:39:00 Test Item Value Reference Range Interpretation [...] gram negative (BEAKER) (test code = rods 170962) POCT-GLUCOSE [id number] 07:57:00 Test Item Value Reference Range Interpretation Comments POC-GLUCOSE METER 75 mg/dL 70-110 : TESTED A T [facility] 6720 (BEAKER) (test code = CHRISTOSDELPHINE Garcia [facility], 1538) 83595: Admissions Dean/Techni estefani ID = [id number] for JOSELIN ESCALONA CBC W/PLT COUNT & AUTO [id number] 06:19:00 Test Item Value Reference Range Interpretation [...] (BEAKER) (test code = 2801) BASIC METABOLIC [id number] 06:14:00 Test Item Value Reference Range Interpretation [...] S NOT APPLICABLE FOR DIALYSIS PATIEN TS. Admissions Dean ID - PIAYA [id number] 06:13:00 Test Item Value Reference Range Interpretation Comments MAGNESIUM (BEAKER) (test code = 2.1 mg/dL 1.6-2.6 627) Admissions Dean ID - PIAYA LPOCT-GLUCOSE [id number] 20:21:00 Test Item Value Reference Range Interpretation Comments POC-GLUCOSE METER 188 mg/dL 70-110 H : TESTED A T [facility] 6720 (BEAKER) (test code = [facility], 153) 85687: Admissions Dean/Techni estefani ID = [id number] for Ch andran, Nikki POCT-GLUCOSE [id number] 16:41:00 Test Item Value Reference Range Interpretation Comments POC-GLUCOSE METER 110 mg/dL 70-110 : TESTED A T [facility] 6720 (BEAKER) (test code [facility], = 1538) 61986: Admissions Dean/Techni estefani ID = [id number] for WILS ON, SHASTANIE POCT-GLUCOSE [id number] 12:03:00 Test Item Value Reference Range Interpretation Comments POC-GLUCOSE METER 82 mg/dL 70-110 : TESTED A T [facility] 6720 (BEAKER) (test code = [facility], 1538) 44770: Admissions Dean/Techni estefani ID = [id number] for WILS ON, SHASTANIE POCT-GLUCOSE [id number] 07:12:00 Test Item Value Reference Range Interpretation Comments POC-GLUCOSE METER 86 mg/dL 70-110 : TESTED A T [facility] 6720 (BEAKER) (test code = [facility], 1538) 48066: Admissions Dean/Techni estefani ID = [id number] for WILS ON, SHASTANIE BASIC METABOLIC [id number] 05:40:00 Test Item Value Reference Range Interpretation [...] S NOT APPLICABLE FOR DIALYSIS PATIEN TS. [id number] 05:38:00 Test Item Value Reference Range Interpretation Comments MAGNESIUM (BEAKER) (test code = 2.0 mg/dL 1.6-2.6 627) CBC W/PLT COUNT & AUTO [id number] 05:07:00 Test Item Value Reference Range Interpretation [...] PERCENT (BEAKER) (test code = 2801) POCT-GLUCOSE [id number] 20:33:00 Test Item Value Reference Range Interpretation Comments POC-GLUCOSE METER 218 mg/dL 70-110 H : TESTED A T [facility] 6720 (BEAKER) (test code = [facility], 1538) 06278: Admissions Dean/Techni estefani ID = [id number] for PHIL MURRELL TTRohit POCT-GLUCOSE [id number] 17:47:00 Test Item Value Reference Range Interpretation Comments POC-GLUCOSE METER 122 mg/dL 70-110 H : TESTED A T [facility] 6720 (BEAKER) (test code [facility], = 1538) 66078: Admissions Dean/Techni estefani ID = [id number] for WILS ON, SHASTANIE POCT-GLUCOSE [id number] 11:53:00 Test Item Value Reference Range Interpretation Comments POC-GLUCOSE METER 93 mg/dL 70-110 : TESTED A T [facility] 6720 (BEAKER) (test code = [facility], 1538) 48036: Admissions Dean/Techni estefani ID = [id number] for WILS ON, SHASTANIE POCT-GLUCOSE [id number] 08:26:00 Test Item Value Reference Range Interpretation Comments POC-GLUCOSE METER 93 mg/dL 70-110 : TESTED A T [facility] 6720 (BEAKER) (test code = [facility] [place], 1538) 55367: Admissions Dean/Techni estefani ID = [id number] for JOSELIN ESCALONA BASIC METABOLIC [id number] 04:43:00 Test Item Value Reference Range Interpretation [...] S NOT APPLICABLE FOR DIALYSIS PATIEN TS. Admissions Dean ID - [id number] 04:33:00 Test Item Value Reference Range Interpretation Comments MAGNESIUM (BEAKER) (test code = 2.1 mg/dL 1.6-2.6 627) Admissions Dean ID - EDASICBC W/PLT COUNT & AUTO [id number] 04:11:00 Test Item Value Reference Range Interpretation [...] PERCENT (BEAKER) (test code = 2801) POCT-GLUCOSE [id number] 21:01:00 Test Item Value Reference Range Interpretation Comments POC-GLUCOSE METER 159 mg/dL 70-110 H : TESTED Vikas Velásquez [facility] 6720 (BEAKER) (test code = [facility] [place], 1538) 80187: Admissions Dean/Techni estefani ID = [id number] for Alexia Vivas POCT-GLUCOSE [id number] 17:01:00 Test Item Value Reference Range Interpretation Comments POC-GLUCOSE METER 149 mg/dL 70-110 H : TESTED A T [facility] 6720 (BEAKER) (test code = [facility], 1538) 63458: Admissions Dean/Techni estefani ID = [id number] for IAIN EASTON POCT-GLUCOSE [id number] 12:36:00 Test Item Value Reference Range Interpretation Comments POC-GLUCOSE METER 127 mg/dL 70-110 H : TESTED A T [facility] 6720 (BEAKER) (test code = [facility], 1538) 42817: Admissions Dean/Techni estefani ID = [id number] for ANGEL HILLS POCT-GLUCOSE [id number] 08:18:00 Test Item Value Reference Range Interpretation Comments POC-GLUCOSE METER 75 mg/dL 70-110 : TESTED A T [facility] 6720 (BEAKER) (test code = [facility], 1538) 63752: Admissions Dean/Techni estefani ID = [id number] for IAIN DEXTER HEMOGLOBIN [id number] 08:08:00 Test Item Value Reference Range Interpretation Comments HEMOGLOBIN A1C (BEAKER) (test code = 5.9 % 4.3-6.1 368) BASIC METABOLIC [id number] 06:38:00 Test Item Value Reference Range Interpretation [...] S NOT APPLICABLE FOR DIALYSIS PATIEN TS. Admissions Dean ID - JAQUELINE [id number] 06:32:00 Test Item Value Reference Range Interpretation Comments MAGNESIUM (BEAKER) (test code = 2.0 mg/dL 1.6-2.6 627) Admissions Dean ID - JAQUELINE MCBC W/PLT COUNT & AUTO [id number] 06:04:00 Test Item Value Reference Range Interpretation [...] PERCENT (BEAKER) (test code = 2801) SARS-COV2/RT-PCR ([facility])2019-12-13 05:48:00 Test Item Value Reference Range Interpretation Comments SARS-COV2/RT-PCR (test Negative Not Detected, Negative, code = 8109478) See external report for linked test SARS-COV-2 PERFORMING LAB [facility] (test code = 1160516) Negative result for this test determines that [...] 564(g) of the Act.Fact Sheet for Healthcare Providers:https://www.[employer]/sites/default/files/product/documents/Fact_Sherohit velásquezo_RJ_Yjkqahmjj_Cwrh_NQLK-JkS-8.pdfFact Sheet for Healthcare Patients:https://www.[employer]/sites/default/files/product/ documents/Tcrb_Sdahq_Skqlybvu_Zmca_STBM-WqC-2.pdfPerforming Laboratory:[facility].[place], [place] [address]TAAY-RMPRUGL METER 2019-12-12 20:52:00 Test Item Value Reference Range Interpretation Comments POC-GLUCOSE METER 123 mg/dL 70-110 H : TESTED A T [facility] 6720 (BEAKER) (test code = [facility], 1538) 14732: Admissions Dean/Techni estefani ID = [id number] for Alexia Vivas POCT-GLUCOSE [id number] 16:14:00 Test Item Value Reference Range Interpretation Comments POC-GLUCOSE METER 175 mg/dL 70-110 H : TESTED A T [facility] 6720 (BEAKER) (test code = [facility], 1538) 03298: Admissions Dean/Techni estefani ID = [id number] for IAIN EASTON POCT-GLUCOSE [id number] 13:41:00 Test Item Value Reference Range Interpretation Comments POC-GLUCOSE METER 145 mg/dL 70-110 H : TESTED A T [facility] 6720 (BEAKER) (test code = [facility], 153) 48301: Admissions Dean/Techni estefani ID = [id number] for BLADIMIR MELISSA VANCOMYCIN LEVEL, [id number] 05:00:00 Test Item Value Reference Range Interpretation Comments VANCOMYCIN RANDOM (BEAKER) (test 17.3 ug/mL code = 523) Reference Range: No NormalsOperator ID - JAQUELINE MSPIN/CONCENTRATION CHARGE 2019-12-12 04:16:00 Test Item Value Reference Range Interpretation Comments CONCENTRATION CHARGED (BEAKER) (test Done code = 2657) POCT-GLUCOSE [id number] 20:36:00 Test Item Value Reference Range Interpretation Comments POC-GLUCOSE METER 80 mg/dL 70-110 : TESTED A T [facility] 6720 (BEAKER) (test code = [facility], 1538) 04501: Admissions Dean/Techni estefani ID = [id number] for ELIZABETH DUENAS POCT-GLUCOSE [id number] 16:43:00 Test Item Value Reference Range Interpretation Comments POC-GLUCOSE METER 88 mg/dL 70-110 : TESTED A T [facility] 6720 (BEAKER) (test code = [facility], 1538) 91257: Admissions Dean/Techni estefani ID = [id number] for KRYSTAL KNOX POCT-GLUCOSE [id number] 14:06:00 Test Item Value Reference Range Interpretation Comments POC-GLUCOSE METER 78 mg/dL 70-110 : TESTED A T [facility] 6720 (BEAKER) (test code = [facility], 1538) 49805: Admissions Dean/Techni estefani ID = [id number] for KRYSTAL KNOX POCT-GLUCOSE [id number] 11:19:00 Test Item Value Reference Range Interpretation Comments POC-GLUCOSE METER 93 mg/dL 70-110 : TESTED A T [facility] 6720 (BEAKER) (test code = [facility], 1538) 54408: Admissions Dean/Techni estefani ID = [id number] for ROSE CHAVEZ BASIC METABOLIC [id number] 04:38:00 Test Item Value Reference Range Interpretation [...] S NOT APPLICABLE FOR DIALYSIS PATIEN TS. Admissions Dean ID - EDASICBC W/PLT COUNT & AUTO [id number] 04:14:00 Test Item Value Reference Range Interpretation [...] ABSOLUTE COUNT 0.86 K/ L 0.04-0.54 H ([facility]) (test code = 416) BASOPHILS ABSOLUTE COUNT ([facility]) 0.07 K/ L 0.01-0.08 (test code = 417) IMMATURE GRANULOCYTES-RELATIVE 0 % 0-1 PERCENT ([facility]) (test code = 2801) BLOOD [id number] 02:00:00 Test Item Value Reference Range Interpretation Comments CULTURE ([facility]) (test No growth in 5 days code = 1095) POCT-GLUCOSE [id number] 20:48:00 Test Item Value Reference Range Interpretation Comments POC-GLUCOSE METER 192 mg/dL 70-110 H : Notified RN/MD: ([facility]) (test code = TESTED AT [facility] 6720 153) [facility], 54845: Admissions Dean/Techni estefani ID = [id number] for ENOCH LANG ELMIRA POCT-GLUCOSE [id number] 17:27:00 Test Item Value Reference Range Interpretation Comments POC-GLUCOSE METER 96 mg/dL 70-110 : [facility]) (test code = [facility], 153) 27562: Admissions Dean/Techni estefani ID = [id number] for WILS ON, SHASTANIE POCT-GLUCOSE [id number] 16:31:00 Test Item Value Reference Range Interpretation Comments POC-GLUCOSE METER 91 mg/dL 70-110 : [facility]) (test code = [facility], 153) 31437: Admissions Dean/Techni estefani ID = [id number] for JUAN Z, EVONNE VIAL POCT-GLUCOSE [id number] 11:42:00 Test Item Value Reference Range Interpretation Comments POC-GLUCOSE METER 91 mg/dL 70-110 : [facility]) (test code = [facility], 153) 82942: Admissions Dean/Techni estefani ID = [id number] for WILS ON, SHASTANIE POCT-GLUCOSE [id number] 08:18:00 Test Item Value Reference Range Interpretation Comments POC-GLUCOSE METER 95 mg/dL 70-110 : TESTED A T [facility] 6720 (BEAKER) (test code = [facility], 153) 78671: Admissions Dean/Techni estefani ID = [id number] for JOSELIN ESCALONA POCT-GLUCOSE [id number] 21:34:00 Test Item Value Reference Range Interpretation Comments POC-GLUCOSE METER 135 mg/dL 70-110 H : TESTED A T [facility] 6720 (BEAKER) (test code = [facility], 1538) 17409: Admissions Dean/Techni estefani ID = [id number] for MURRELL, PHIL TTE POCT-GLUCOSE [id number] 16:56:00 Test Item Value Reference Range Interpretation Comments POC-GLUCOSE METER 140 mg/dL 70-110 H : TESTED A T [facility] 6720 (BEAKER) (test code = [facility], 153) 58089: Admissions Dean/Techni estefani ID = [id number] for AGUSTÍN GUTIERREZ, IAIN POCT-GLUCOSE [id number] 11:38:00 Test Item Value Reference Range Interpretation Comments POC-GLUCOSE METER 126 mg/dL 70-110 H : TESTED A T [facility] 6720 (BEAKER) (test code = [facility], 153) 45441: Admissions Dean/Techni estefani ID = [id number] for AGUSTÍN GUTIERREZ, IAIN POCT-GLUCOSE [id number] 07:31:00 Test Item Value Reference Range Interpretation Comments POC-GLUCOSE METER 63 mg/dL 70-110 L : TESTED A T [facility] 6720 (BEAKER) (test code = [facility], 1538) 86548: Admissions Dean/Techni estefani ID = [id number] for BREA AKERS, IAIN POCT-GLUCOSE [id number] 21:32:00 Test Item Value Reference Range Interpretation Comments POC-GLUCOSE METER 144 mg/dL 70-110 H : TESTED A T [facility] 6720 (BEAKER) (test code = [facility], 153) 53916: Admissions Dean/Techni estefani ID = [id number] for MURRELL, PHIL TTE POCT-GLUCOSE [id number] 17:06:00 Test Item Value Reference Range Interpretation Comments POC-GLUCOSE METER 95 mg/dL 70-110 : TESTED A T [facility] 6720 (BEAKER) (test code = [facility], 1538) 45630: Admissions Dean/Techni estefani ID = [id number] for IAIN DEXTER POCT-GLUCOSE [id number] 12:40:00 Test Item Value Reference Range Interpretation Comments POC-GLUCOSE METER 153 mg/dL 70-110 H : TESTED A T [facility] 6720 (BEAKER) (test code = [facility], 1538) 48952: Admissions Dean/Techni estefani ID = [id number] for IAIN EASTON POCT-GLUCOSE [id number] 07:26:00 Test Item Value Reference Range Interpretation Comments POC-GLUCOSE METER 103 mg/dL 70-110 : TESTED A T [facility] 6720 (BEAKER) (test code = [facility], 1538) 61772: Admissions Dean/Techni estefani ID = [id number] for IAIN EASTON BASIC METABOLIC [id number] 05:34:00 Test Item Value Reference Range Interpretation [...] S NOT APPLICABLE FOR DIALYSIS PATIEN TS. Admissions Dean ID - PIAYA LCBC W/PLT COUNT & AUTO [id number] 04:04:00 Test Item Value Reference Range Interpretation [...] PERCENT (BEAKER) (test code = 2801) POCT-GLUCOSE [id number] 21:37:00 Test Item Value Reference Range Interpretation Comments POC-GLUCOSE METER 251 mg/dL 70-110 H : TESTED A T [facility] 6720 (BEAKER) (test code = [facility], 153) 88757: Admissions Dean/Techni estefani ID = [id number] for PHIL MURRELL POCT-GLUCOSE [id number] 17:54:00 Test Item Value Reference Range Interpretation Comments POC-GLUCOSE METER 108 mg/dL 70-110 : TESTED A T [facility] 6720 (BEAKER) (test code = [facility], 1538) 76728: Admissions Dean/Techni estefani ID = [id number] for Avery Levy POCT-GLUCOSE [id number] 11:57:00 Test Item Value Reference Range Interpretation Comments POC-GLUCOSE METER 85 mg/dL 70-110 : TESTED A T [facility] 6720 (BEAKER) (test code = [facility], 153) 09915: Admissions Dean/Techni estefani ID = [id number] for IAIN DEXTER POCT-GLUCOSE [id number] 08:11:00 Test Item Value Reference Range Interpretation Comments POC-GLUCOSE METER 66 mg/dL 70-110 L : TESTED A T [facility] 6720 (BEAKER) (test code = [facility], 1538) 53992: Admissions Dean/Techni estefani ID = [id number] for IAIN DEXTER FUNGUS CULTURE + [id number] 15:59:00 Test Item Value Reference Range Interpretation Comments CULTURE (BEAKER) (test No fungus isolated in code = 1095) 28 days FUNGUS SMEAR (BEAKER) No fungi seen (test code = 1406) POCT-GLUCOSE [id number] 15:44:00 Test Item Value Reference Range Interpretation Comments POC-GLUCOSE METER 97 mg/dL 70-110 : TESTED A T [facility] 6720 (BEAKER) (test code = [facility], 153) 97721: Admissions Dean/Techni estefani ID = [id number] for QUEEN SWANSON POCT-GLUCOSE [id number] 10:44:00 Test Item Value Reference Range Interpretation Comments POC-GLUCOSE METER 71 mg/dL 70-110 : TESTED A T [facility] 6720 (BEAKER) (test code = [facility], 1538) 43363: Admissions Dean/Techni estefani ID = [id number] for QUEEN SWANSON SARS-COV2/RT-PCR ([facility])2019-12-06 08:14:00 Test Item Value Reference Range Interpretation Comments SARS-COV2/RT-PCR (test Negative Not Detected, Negative, code = 1836491) See external report for linked test SARS-COV-2 PERFORMING LAB [facility] KEELY (test code = 5268045) Negative result for this test determines that [...] 564(g) of the Act.Fact Sheet for Healthcare Providers:https://www.Scrapblog.[employer]/sites/default/files/product/documents/Fact_Shee s_EX_Pmhibggan_Hnqy_WRII-VlJ-0.pdfFact Sheet for Healthcare Patients:https://www.Sc[employer]blog.com/sites/default/files/product/ documents/Oeao_Fjqbv_Xgtbsdec_Cvrr_MLTI-PoB-1.pdfPerforming Laboratory:[facility], [place] [address]NHKW-GGDVNRY METER 2019-12-06 08:03:00 Test Item Value Reference Range Interpretation Comments POC-GLUCOSE METER 68 mg/dL 70-110 L : TESTED A T [facility] 6720 (BEAKER) (test code = DASIA Garcia [facility], 1538) 94488: Admissions Dean/Techni estefani ID = [id number] for QUEEN SWANSON BASIC METABOLIC [id number] 07:45:00 Test Item Value Reference Range Interpretation [...] S NOT APPLICABLE FOR DIALYSIS PATIEN TS. Admissions Dean ID - [id number] 07:30:00 Test Item Value Reference Range Interpretation Comments PHOSPHORUS (BEAKER) (test code = 4.8 mg/dL 2.3-4.7 H 604) Admissions Dean ID - [id number] 07:30:00 Test Item Value Reference Range Interpretation Comments MAGNESIUM (BEAKER) (test code = 2.4 mg/dL 1.6-2.6 627) Admissions Dean ID - EDASICBC W/PLT COUNT & AUTO [id number] 07:19:00 Test Item Value Reference Range Interpretation [...] 0-1 PERCENT ([facility]) (test code = 2801) PROTHROMBIN [id number] 06:53:00 Test Item Value Reference Range Interpretation Comments PROTIME ([facility]) (test code = 16.1 seconds 11.9-14.2 H 759) INR ([facility]) (test code = 370) 1.32 <=5.90 Effective 08/02/2018: PT Reference Range ChangeNew: 11.9-14.2 Previous: 11.7- 14.7RECOMMENDED COUMADIN/WARFARIN INR THERAPY RANGESSTANDARD DOSE: 2.0-3.0 Includes: PROPHYLAXIS for venous thrombosis, systemic embolization; TREATMENT for venous thrombosis and/or pulmonary embolus.HIGH RISK: Target INR is2.5-3.5 for patients wiht mechanical heart valves.POCT-GLUCOSE [id number] 21:16:00 Test Item Value Reference Range Interpretation Comments POC-GLUCOSE METER 257 mg/dL 70-110 H : TESTED A T [facility] 6720 ([employer]) (test code = [facility] [employer] [facility], 153) 07601: Admissions Dean/Techni estefani ID = [id number] for MURRELL, PHIL TTE POCT-GLUCOSE [id number] 21:21:00 Test Item Value Reference Range Interpretation Comments POC-GLUCOSE METER 247 mg/dL 70-110 H : TESTED A T [facility] 6720 ([employer]) (test code = [facility] [employer] [facility], 153) 29791: Admissions Dean/Techni estefani ID = [id number] for SA HIGGINS, CRYSTAL POCT-GLUCOSE [id number] 12:32:00 Test Item Value Reference Range Interpretation Comments POC-GLUCOSE METER 95 mg/dL 70-110 : TESTED A T [facility] 6720 ([employer]) (test code = [facility] [employer] [facility], 1538) 12161: Admissions Dean/Techni estefani ID = [id number] for QUANG OS, JACOB POCT-GLUCOSE [id number] 08:26:00 Test Item Value Reference Range Interpretation Comments POC-GLUCOSE METER 98 mg/dL 70-110 : TESTED A T [facility] 6720 ([employer]) (test code = [facility] [employer] [facility], 1538) 37988: Admissions Dean/Techni estefani ID = [id number] for QUANG OS, JACOB POCT-GLUCOSE [id number] 21:54:00 Test Item Value Reference Range Interpretation Comments POC-GLUCOSE METER 153 mg/dL 70-110 H : TESTED A T [facility] 6720 (BEAKER) (test code = [facility], 1538) 28736: Admissions Dean/Techni estefani ID = [id number] for UL LATTIL, SJ POCT-GLUCOSE [id number] 17:04:00 Test Item Value Reference Range Interpretation Comments POC-GLUCOSE METER 194 mg/dL 70-110 H : TESTED A T [facility] 6720 (BEAKER) (test code = [facility], 1538) 98870: Admissions Dean/Techni estefani ID = [id number] for HIGGINS BLET, JANIE POCT-GLUCOSE [id number] 12:29:00 Test Item Value Reference Range Interpretation Comments POC-GLUCOSE METER 162 mg/dL 70-110 H : TESTED A T [facility] 6720 (BEAKER) (test code = [facility], 1538) 04573: Admissions Dean/Techni estefani ID = [id number] for HIGGINS BLET, JANIE POCT-GLUCOSE [id number] 09:42:00 Test Item Value Reference Range Interpretation Comments POC-GLUCOSE METER 178 mg/dL 70-110 H : TESTED A T [facility] 6720 (BEAKER) (test code = [facility], 1538) 56274: Admissions Dean/Techni estefani ID = [id number] for NG TYRONE GARCIA POCT-GLUCOSE [id number] 07:19:00 Test Item Value Reference Range Interpretation Comments POC-GLUCOSE METER 115 mg/dL 70-110 H : TESTED A T [facility] 6720 (BEAKER) (test code = [facility], 1538) 82854: Admissions Dean/Techni estefani ID = [id number] for UL LATTIL, SJ CREATINE KINASE (CK)2019-11-29 06:25:00 Test Item Value Reference Range Interpretation Comments CREATINE KINASE TOTAL (BEAKER) (test 249 U/L 29-200 H code = 380) Admissions Dean ID - JAQUELINE MPOCT-GLUCOSE [id number] 21:03:00 Test Item Value Reference Range Interpretation Comments POC-GLUCOSE METER 157 mg/dL 70-110 H : TESTED A T [facility] 6720 (BEAKER) (test code = [facility], 1538) 16596: Admissions Dean/Techni estefani ID = [id number] for UL SJ REYES POCT-GLUCOSE [id number] 18:26:00 Test Item Value Reference Range Interpretation Comments POC-GLUCOSE METER 136 mg/dL 70-110 H : TESTED A T [facility] 6720 (BEAKER) (test code = [facility], 1538) 86173: Admissions Dean/Techni estefani ID = [id number] for NG TYRONE GARCIA POCT-GLUCOSE [id number] 11:59:00 Test Item Value Reference Range Interpretation Comments POC-GLUCOSE METER 160 mg/dL 70-110 H : TESTED A T [facility] 6720 (BEAKER) (test code = [facility], 1538) 33427: Admissions Dean/Techni estefani ID = [id number] for GUNNER PANDYA POCT-GLUCOSE [id number] 08:00:00 Test Item Value Reference Range Interpretation Comments POC-GLUCOSE METER 89 mg/dL 70-110 : TESTED A T [facility] 6720 (BEAKER) (test code = [facility], 1538) 32816: Admissions Dean/Techni estefani ID = [id number] for FAGUNNER MCNALLY BASIC METABOLIC [id number] 04:43:00 Test Item Value Reference Range Interpretation [...] S NOT APPLICABLE FOR DIALYSIS PATIEN TS. Admissions Dean ID - BSCBC W/PLT COUNT & AUTO [id number] 04:35:00 Test Item Value Reference Range Interpretation [...] PERCENT (BEAKER) (test code = 2801) POCT-GLUCOSE [id number] 21:07:00 Test Item Value Reference Range Interpretation Comments POC-GLUCOSE METER 146 mg/dL 70-110 H : TESTED A T [facility] 6720 (BEAKER) (test code = [facility], 1538) 48936: Admissions Dean/Techni estefani ID = [id number] for JAD SALGUERO POCT-GLUCOSE [id number] 17:47:00 Test Item Value Reference Range Interpretation Comments POC-GLUCOSE METER 138 mg/dL 70-110 H : TESTED A T [facility] 6720 (BEAKER) (test code = [facility], 1538) 27769: Admissions Dean/Techni estefani ID = [id number] for SA MOISES, JACOB POCT-GLUCOSE [id number] 12:12:00 Test Item Value Reference Range Interpretation Comments POC-GLUCOSE METER 157 mg/dL 70-110 H : TESTED A T [facility] 6720 (BEAKER) (test code = [facility], 1538) 67664: Admissions Dean/Techni estefani ID = [id number] for SA NTTONYA, JACOB POCT-GLUCOSE [id number] 09:04:00 Test Item Value Reference Range Interpretation Comments POC-GLUCOSE METER 142 mg/dL 70-110 H : TESTED A T [facility] 6720 (BEAKER) (test code = [facility], 1538) 78564: Admissions Dean/Techni estefani ID = [id number] for SA NTOS, JACOB BASIC METABOLIC [id number] 05:51:00 Test Item Value Reference Range Interpretation [...] S NOT APPLICABLE FOR DIALYSIS PATIEN TS. Admissions Dean ID - BSCBC W/PLT COUNT & AUTO [id number] 05:17:00 Test Item Value Reference Range Interpretation [...] PERCENT (BEAKER) (test code = 2801) POCT-GLUCOSE [id number] 21:20:00 Test Item Value Reference Range Interpretation Comments POC-GLUCOSE METER 136 mg/dL 70-110 H : TESTED A T [facility] 6720 (BEAKER) (test code = [facility], 1538) [id number]: Admissions Dean/Techni estefani ID = [id number] for SA HIGGINS, CRYSTAL POCT-GLUCOSE [id number] 17:34:00 Test Item Value Reference Range Interpretation Comments POC-GLUCOSE METER 205 mg/dL 70-110 H : TESTED A T [facility] 6720 (BEAKER) (test code = [facility], 1538) 92276: Admissions Dean/Techni estefani ID = [id number] for SA NTOS, JACOB POCT-GLUCOSE [id number] 11:22:00 Test Item Value Reference Range Interpretation Comments POC-GLUCOSE METER 98 mg/dL 70-110 : TESTED A T [facility] 6720 (BEAKER) (test code = [facility] [employer] [facility], 1538) 86681: Admissions Dean/Techni estefani ID = [id number] for Dania ano, Avery POCT-GLUCOSE [id number] 08:07:00 Test Item Value Reference Range Interpretation Comments POC-GLUCOSE METER 117 mg/dL 70-110 H : TESTED A T [facility] 6720 (BEAKER) (test code = [facility] [place], 1538) 09331: Admissions Dean/Techni estefani ID = [id number] for JANIE KAUR CBC W/PLT COUNT & AUTO [id number] 05:21:00 Test Item Value Reference Range Interpretation [...] (BEAKER) (test code = 2801) BASIC METABOLIC [id number] 05:17:00 Test Item Value Reference Range Interpretation [...] S NOT APPLICABLE FOR DIALYSIS PATIEN TS. Admissions Dean ID - DBPOCT-GLUCOSE [id number] 21:45:00 Test Item Value Reference Range Interpretation Comments POC-GLUCOSE METER 144 mg/dL 70-110 H : TESTED A T [facility] 6720 (BEAKER) (test code = [facility], 1538) 56048: Admissions Dean/Techni estefani ID = [id number] for UL LATTIL, SJ POCT-GLUCOSE [id number] 17:16:00 Test Item Value Reference Range Interpretation Comments POC-GLUCOSE METER 134 mg/dL 70-110 H : TESTED A T [facility] 6720 (BEAKER) (test code = [facility], 1538) 55467: Admissions Dean/Techni estefani ID = [id number] for FA TY GUNNER POCT-GLUCOSE [id number] 12:00:00 Test Item Value Reference Range Interpretation Comments POC-GLUCOSE METER 120 mg/dL 70-110 H : TESTED A T [facility] 6720 (BEAKER) (test code = [facility], [facility]8) 70948: Admissions Dean/Techni estefani ID = [id number] for FA ITH, GUNNER POCT-GLUCOSE [id number] 08:04:00 Test Item Value Reference Range Interpretation Comments POC-GLUCOSE METER 74 mg/dL 70-110 : TESTED A T [facility] 6720 (BEAKER) (test code = [facility], [facility]8) 61238: Admissions Dean/Techni estefani ID = [id number] for FAIT H, GUNNER POCT-GLUCOSE [id number] 21:31:00 Test Item Value Reference Range Interpretation Comments POC-GLUCOSE METER 155 mg/dL 70-110 H : TESTED A T [facility] 6720 (BEAKER) (test code = [facility], [facility]8) 15771: Admissions Dean/Techni estefani ID = [id number] for UL LATTIL, SJ POCT-GLUCOSE [id number] 17:03:00 Test Item Value Reference Range Interpretation Comments POC-GLUCOSE METER 127 mg/dL 70-110 H : TESTED A T [facility] 6720 (BEAKER) (test code = [facility], [facility]8) 01723: Admissions Dean/Techni estefani ID = [id number] for FA ITH, GUNNER POCT-GLUCOSE [id number] 12:28:00 Test Item Value Reference Range Interpretation Comments POC-GLUCOSE METER 147 mg/dL 70-110 H : TESTED A T [facility] 6720 (BEAKER) (test code = [facility], [facility]8) 58534: Admissions Dean/Techni estefani ID = [id number] for FA ITH, GUNNER POCT-GLUCOSE [id number] 08:06:00 Test Item Value Reference Range Interpretation Comments POC-GLUCOSE METER 107 mg/dL 70-110 : TESTED A T [facility] 6720 (BEAKER) (test code = [facility], [facility]8) 06576: Admissions Dean/Techni estefani ID = [id number] for FA ITH, GUNNER POCT-GLUCOSE [id number] 21:07:00 Test Item Value Reference Range Interpretation Comments POC-GLUCOSE METER 179 mg/dL 70-110 H : TESTED A T [facility] (BEAKER) (test code = [facility] Jose [facility], 1538) 74067: Admissions Dean/Techni estefani ID = [id number] for SJ HREBERT POCT-GLUCOSE [id number] 17:04:00 Test Item Value Reference Range Interpretation Comments POC-GLUCOSE METER 201 mg/dL 70-110 H : TESTED A T [facility] 6720 (BEAKER) (test code = [facility], 1538) 82996: Admissions Dean/Techni estefani ID = [id number] for GUNNER PANDYA POCT-GLUCOSE [id number] 12:29:00 Test Item Value Reference Range Interpretation Comments POC-GLUCOSE METER 110 mg/dL 70-110 : TESTED A T [facility] (BEAKER) (test code = [facility] Jose [facility], 1538) 34799: Admissions Dean/Techni estefani ID = [id number] for Avery Levy SARS-COV2/RT-PCR ([facility])2019-11-23 11:35:00 Test Item Value Reference Range Interpretation Comments SARS-COV2/RT-PCR (test Negative Not Detected, Negative, code = 1452879) See external report for linked test SARS-COV-2 PERFORMING LAB [facility] (test code = 9455565) Negative result for this test determines that [...] 564(g) of the Act.Fact Sheet for Healthcare Providers:https://www.[employer]/sites/default/files/product/documents/Fact_Shee q_XC_Yncwcciji_Gvyp_AXRR-SiS-0.pdfFact Sheet for Healthcare Patients:https://www.[employer]/sites/default/files/product/ documents/Sqjo_Bmclp_Okezfope_Woxt_MWQT-CiF-7.pdfPerforming Laboratory:[address], [place] [address]ZHYG-QGNCJUP METER 2019-11-23 08:05:00 Test Item Value Reference Range Interpretation Comments POC-GLUCOSE METER 92 mg/dL 70-110 : TESTED A T [facility]20 ([employer]) (test code = [facility], 153) 99058: Admissions Dean/Techni estefani ID = [id number] for GUNNER MUHAMMAD POCT-GLUCOSE [id number] 21:46:00 Test Item Value Reference Range Interpretation Comments POC-GLUCOSE METER 145 mg/dL 70-110 H : TESTED A T [facility] 6720 ([employer]) (test code = [facility], 153) 89706: Admissions Dean/Techni estefani ID = [id number] for CA RBAJAL, TIMA POCT-GLUCOSE [id number] 17:51:00 Test Item Value Reference Range Interpretation Comments POC-GLUCOSE METER 180 mg/dL 70-110 H : TESTED A T [facility] 6720 ([employer]) (test code = [facility], 153) 06151: Admissions Dean/Techni estefani ID = [id number] for SA NTOS, JACOB POCT-GLUCOSE [id number] 11:57:00 Test Item Value Reference Range Interpretation Comments POC-GLUCOSE METER 151 mg/dL 70-110 H : TESTED A T [facility] 6720 (BEAKER) (test code = [facility], 1538) 00505: Admissions Dean/Techni estefani ID = [id number] for SA NTOS, JACOB POCT-GLUCOSE [id number] 08:07:00 Test Item Value Reference Range Interpretation Comments POC-GLUCOSE METER 110 mg/dL 70-110 : TESTED A T [facility] 6720 (BEAKER) (test code = [facility], 1538) 37449: Admissions Dean/Techni estefani ID = [id number] for SA NTOS, JACOB CREATINE KINASE (CK)2019-11-22 05:38:00 Test Item Value Reference Range Interpretation Comments CREATINE KINASE TOTAL (BEAKER) (test 57 U/L 29-200 code = 380) Admissions Dean ID - PIAYA LPOCT-GLUCOSE [id number] 21:49:00 Test Item Value Reference Range Interpretation Comments POC-GLUCOSE METER 171 mg/dL 70-110 H : TESTED A T [facility] 6720 (BEAKER) (test code = [facility], 1538) 51106: Admissions Dean/Techni estefani ID = [id number] for CA RBAJAL, TIMA ANAEROBIC [id number] 18:36:00 Test Item Value Reference Range Interpretation Comments CULTURE (BEAKER) (test No anaerobes isolated code = 1095) HEPATITIS B SURFACE [id number] 17:43:00 Test Item Value Reference Range Interpretation Comments HEPATITIS B SURFACE ANTIGEN (2) Nonreactive Nonreactive (AKER) (test code = 2585) Specimen is considered negative for HBsAg.POCT-GLUCOSE [id number] 12:07:00 Test Item Value Reference Range Interpretation Comments POC-GLUCOSE METER 106 mg/dL 70-110 : TESTED A T [facility] 6720 (BEAKER) (test code = [facility], 1538) 59307: Admissions Dean/Techni estefani ID = [id number] for SA NTOS, JACOB POCT-GLUCOSE [id number] 08:05:00 Test Item Value Reference Range Interpretation Comments POC-GLUCOSE METER 113 mg/dL 70-110 H : TESTED A T [facility] 6720 (BEAKER) (test code = [facility], [facility]) 77423: Admissions Dean/Techni estefani ID = [id number] for JULY LYLESINA POCT-GLUCOSE [id number] 22:58:00 Test Item Value Reference Range Interpretation Comments POC-GLUCOSE METER 201 mg/dL 70-110 H : TESTED A T [facility] 6720 (BEAKER) (test code = [facility], [facility]) 47759: Admissions Dean/Techni estefani ID = [id number] for UL LATTIL, SJ POCT-GLUCOSE [id number] 17:14:00 Test Item Value Reference Range Interpretation Comments POC-GLUCOSE METER 128 mg/dL 70-110 H : TESTED A T [facility] 6720 (BEAKER) (test code = [facility], [facility]) 62005: Admissions Dean/Techni estefani ID = [id number] for FA TY, GUNNER POCT-GLUCOSE [id number] 12:17:00 Test Item Value Reference Range Interpretation Comments POC-GLUCOSE METER 171 mg/dL 70-110 H : TESTED A T [facility] 6720 (BEAKER) (test code = [facility], [facility]) 70943: Admissions Dean/Techni estefani ID = [id number] for FA ITH, GUNNER POCT-GLUCOSE [id number] 23:29:00 Test Item Value Reference Range Interpretation Comments POC-GLUCOSE METER 210 mg/dL 70-110 H : TESTED A T [facility] 6720 (BEAKER) (test code = [facility], [facility]) 00722: Admissions Dean/Techni estefani ID = [id number] for UL LATTIL, SJ POCT-GLUCOSE [id number] 20:51:00 Test Item Value Reference Range Interpretation Comments POC-GLUCOSE METER 132 mg/dL 70-110 H : TESTED A T [facility] 6720 (BEAKER) (test code = [facility], [facility]) 64746: Admissions Dean/Techni estefani ID = [id number] for CLAUDIA BERENICE TORIA POCT-GLUCOSE [id number] 12:26:00 Test Item Value Reference Range Interpretation Comments POC-GLUCOSE METER 155 mg/dL 70-110 H : TESTED A T [facility] 6720 (BEAKER) (test code = [facility], 1538) 56010: Admissions Dean/Techni estefani ID = [id number] for GUNNER PANDYA POCT-GLUCOSE [id number] 08:09:00 Test Item Value Reference Range Interpretation Comments POC-GLUCOSE METER 109 mg/dL 70-110 : TESTED A T [facility] (BEAKER) (test code = DASIA Garcia [facility], 1538) 72451: Admissions Dean/Techni estefani ID = [id number] for GUNNER PANDYA BASIC METABOLIC [id number] 07:08:00 Test Item Value Reference Range Interpretation [...] S NOT APPLICABLE FOR DIALYSIS PATIEN TS. Admissions Dean ID - PIAYA LCBC (HEMOGRAM ONLY)2019-11-19 04:19:00 [...] 0-0 (BEAKER) (test code = 413) POCT-GLUCOSE [id number] 21:23:00 Test Item Value Reference Range Interpretation Comments POC-GLUCOSE METER 182 mg/dL 70-110 H : TESTED A T [facility] 6720 (BEAKER) (test code = [facility], 153) 42858: Admissions Dean/Techni estefani ID = [id number] for CA RBAJAL, TIMA POCT-GLUCOSE [id number] 17:32:00 Test Item Value Reference Range Interpretation Comments POC-GLUCOSE METER 142 mg/dL 70-110 H : TESTED A T [facility] 6720 (BEAKER) (test code = [facility], 153) 63355: Admissions Dean/Techni estefani ID = [id number] for SA NTOS, JACOB POCT-GLUCOSE [id number] 13:24:00 Test Item Value Reference Range Interpretation Comments POC-GLUCOSE METER 164 mg/dL 70-110 H : TESTED A T [facility] 6720 (BEAKER) (test code = [facility], 153) 91648: Admissions Dean/Techni estefani ID = [id number] for SA NTOS, JACOB BASIC METABOLIC [id number] 12:57:00 Test Item Value Reference Range Interpretation [...] NOT APPLICABLE FOR DIALYSIS PATIEN TS. POCT-GLUCOSE [id number] 08:04:00 Test Item Value Reference Range Interpretation Comments POC-GLUCOSE METER 137 mg/dL 70-110 H : TESTED A T [facility] (BEAKER) (test code = [facility], 1538) 92261: Admissions Dean/Techni estefani ID = [id number] for JACOB LYLES CBC (HEMOGRAM ONLY)2019-11-18 06:36:00 [...] 0-0 (BEAKER) (test code = 413) POCT-GLUCOSE [id number] 22:05:00 Test Item Value Reference Range Interpretation Comments POC-GLUCOSE METER 123 mg/dL 70-110 H : TESTED A T [facility] 6720 (BEAKER) (test code = [facility], 1538) 88846: Admissions Dean/Techni estefani ID = [id number] for ON ABDIRAHMAN LUU POCT-GLUCOSE [id number] 17:52:00 Test Item Value Reference Range Interpretation Comments POC-GLUCOSE METER 111 mg/dL 70-110 H : TESTED A T [facility] 6720 (BEAKER) (test code = [facility], 1538) 66379: Admissions Dean/Techni estefani ID = [id number] for SA JACOB DE LEON BASIC METABOLIC [id number] 09:54:00 Test Item Value Reference Range Interpretation [...] S NOT APPLICABLE FOR DIALYSIS PATIEN TS. Admissions Dean ID - JAQUELINE MPOCT-GLUCOSE [id number] 08:13:00 Test Item Value Reference Range Interpretation Comments POC-GLUCOSE METER 134 mg/dL 70-110 H : TESTED A T [facility] 6720 (BEAKER) (test code = [facility], 1538) 48255: Admissions Dean/Techni estefani ID = [id number] for JACOB LYLES CBC (HEMOGRAM ONLY)2019-11-17 07:03:00 [...] 0-0 (BEAKER) (test code = 413) POCT-GLUCOSE [id number] 21:52:00 Test Item Value Reference Range Interpretation Comments POC-GLUCOSE METER 154 mg/dL 70-110 H : TESTED A T [facility] 6720 (BEAKER) (test code = [facility], 1538) 07488: Admissions Dean/Techni estefani ID = [id number] for CRYSTAL RANGEL POCT-GLUCOSE [id number] 17:47:00 Test Item Value Reference Range Interpretation Comments POC-GLUCOSE METER 179 mg/dL 70-110 H : TESTED A T [facility] 6720 (BEAKER) (test code = [facility], 1538) 21178: Admissions Dean/Techni estefani ID = [id number] for JACOB LYLES POCT-GLUCOSE [id number] 11:58:00 Test Item Value Reference Range Interpretation Comments POC-GLUCOSE METER 158 mg/dL 70-110 H : TESTED A T [facility] 6720 (BEAKER) (test code = [facility], 1538) 32855: Admissions Dean/Techni estefani ID = [id number] for JACOB LYLES BASIC METABOLIC [id number] 08:15:00 Test Item Value Reference Range Interpretation [...] S NOT APPLICABLE FOR DIALYSIS PATIEN TS. Admissions Dean ID - ANTONY FPOCT-GLUCOSE [id number] 08:09:00 Test Item Value Reference Range Interpretation Comments POC-GLUCOSE METER 163 mg/dL 70-110 H : TESTED A T [facility] 6720 (BEAKER) (test code = [facility], 1538) 36278: Admissions Dean/Techni estefani ID = [id number] for JACOB LYLES CBC (HEMOGRAM ONLY)2019-11-16 07:04:00 [...] 0-0 (BEAKER) (test code = 413) POCT-GLUCOSE [id number] 21:05:00 Test Item Value Reference Range Interpretation Comments POC-GLUCOSE METER 199 mg/dL 70-110 H : TESTED A T [facility] ([facility]) (test code = [facility], 153) 63011: Admissions Dean/Techni estefani ID = [id number] for ARUNA REYES, SJ POCT-GLUCOSE [id number] 17:09:00 Test Item Value Reference Range Interpretation Comments POC-GLUCOSE METER 129 mg/dL 70-110 H : TESTED A T [facility] 6720 ([facility]) (test code = [facility], 153) 01688: Admissions Dean/Techni estefani ID = [id number] for FA TY GUNNER [id number] 16:14:00 Test Item Value Reference Range Interpretation Comments ACTIVATED CLOTTING TIME 202 sec : 74 -137 seconds, (BEAKER) (test code = Baseli ne: TESTED AT 441) [facility], 770 30: Admissions Dean/Techni estefani ID = [id number] for DAILY HOGUE POCT-GLUCOSE [id number] 15:08:00 Test Item Value Reference Range Interpretation Comments POC-GLUCOSE METER 126 mg/dL 70-110 H : TESTED A T [facility] 6720 (BEAKER) (test code = DASIA Garcia [facility], 153) 76357: Admissions Dean/Techni estefani ID = [id number] for FERNANDA YOUNGER POCT-GLUCOSE [id number] 14:35:00 Test Item Value Reference Range Interpretation Comments POC-GLUCOSE METER 137 mg/dL 70-110 H : TESTED A T [facility] 6720 (BEAKER) (test code = DASIA Garcia [facility], 153) 21304: Admissions Dean/Techni estefani ID = [id number] for TYRONE VAZQUEZ (CELLAVISION MANUAL DIFF)2019-11-15 09:51:00 [...] CONCENTRATION Adequate (CELLAVISION)(BEAKER) (test code = 3438) Admissions Dean ID - Daily OverholtUser comments: Slide comments:POCT-GLUCOSE METER 2019-11-15 08:08:00 Test Item Value Reference Range Interpretation Comments POC-GLUCOSE METER 128 mg/dL 70-110 H : TESTED A T [facility] (BEAKER) (test code = [facility] [place], 1538) 53788: Admissions Dean/Techni estefani ID = [id number] for GUNNER PANDYA BASIC METABOLIC [id number] 06:08:00 Test Item Value Reference Range Interpretation [...] S NOT APPLICABLE FOR DIALYSIS PATIEN TS. Admissions Dean ID - EDASICREATINE KINASE (CK)2019-11-15 06:06:00 Test Item Value Reference Range Interpretation Comments CREATINE KINASE TOTAL (BEAKER) (test 46 U/L 29-200 code = 380) Admissions Dean ID - [id number] 05:09:00 Test Item Value Reference Range Interpretation Comments PARTIAL THROMBOPLASTIN TIME 52.1 seconds 22.5-36.0 H (BEAKER) (test code = 760) PROTHROMBIN [id number] 05:08:00 Test Item Value Reference Range Interpretation [...] 0-0 (BEAKER) (test code = 413) POCT-GLUCOSE [id number] 21:29:00 Test Item Value Reference Range Interpretation Comments POC-GLUCOSE METER 189 mg/dL 70-110 H : TESTED A T [facility] 6720 (BEAKER) (test code = [facility] Garcia [facility], 1538) 71507: Admissions Dean/Techni estefani ID = [id number] for UL LATTIL, SJ POCT-GLUCOSE [id number] 17:22:00 Test Item Value Reference Range Interpretation Comments POC-GLUCOSE METER 208 mg/dL 70-110 H : TESTED A T [facility] 6720 (BEAKER) (test code = [facility] Jose [facility], 1538) 06859: Admissions Dean/Techni estefani ID = [id number] for LURDES MOSSUREKHA TISSUE [id number] 16:50:00Surgical Pathology Report Case: [id number] Authorizing Provider: Star Cloud DPM Collected: 11/08/2019 03:53 PM Ordering Location: [facility] Received: 11/09/2019 09:35 AM PERIOPERATIVE SERVICES Pathologist: Vandana Beevrly MD Specimens: A) - Metatarsal, Right, 1ST [...] FOR MALIGNANCY Signing Pathologist Direct Phone Line: [phone] signed by Vandana Beverly MD on 11/14/2019 at 4:50 [id number] X 4 ; [id number] X 2Non-healing surgical wound, initial encounter A. Metatarsal, right, firstB. Metatarsal, right, fifthC.Tendon, foot, rightD. Skin, foot, rightA. Received fresh labeled with the patient's name, medical record number and "metatarsal, right, first" is a transected bone measuring 2.2 cm in length and ranging 1.8-2.5 cm in diameter. One end is baca- gadrner and dusky. The opposite end is focally hemorrhagic.The specimen is sectioned to reveal heterogeneous, gardner-pink to red trabecular bone with no gross lesions. Mill Order Scheduler sections are submitted.Section code:A1: Smaller gardner- baca [...] gardner-red trabecular bone with no gross lesions. Mill Order Scheduler sections are s ubmitted.Section code:B1: Bone margin, en face, following decalcificationB2 containers sales representative of hemorrhagic soft tissue and bone, following decalcificationC. Received fresh labeled with the patient's name, medical record number and "tendon/tendon sheath" is an 8.1 x 1.3 x 0.3 cm gardner-baca, congested tendon. The specimen is serially sectioned and no gross lesions are identified. Mill Order Scheduler sectionsare submitted in C1.D. Received fresh labeled with the patient's name, medical record number and "right foot eschar" is 11.5 x 11.5 x 0.8 cm aggregate of 4 irregular portions of black-baca, hyperkeratotic skin. Specimen is serially sectioned to reveal hard, hemorrhagic tissue. Mill Order Scheduler sections are submitted in D1-D2.BREANNA Nava, LEW ([facility])PERFORMEDPOCT-GLUCOSE [id number] 12:59:00 Test Item Value Reference Range Interpretation Comments POC-GLUCOSE METER 257 mg/dL 70-110 H : TESTED A T [facility] ([employer]) (test code = [facility] [employer] [facility], 1538) 80900: Admissions Dean/Techni estefani ID = [id number] for SUREKHA OLIVER POCT-GLUCOSE [id number] 08:50:00 Test Item Value Reference Range Interpretation Comments POC-GLUCOSE METER 183 mg/dL 70-110 H : TESTED A T [facility] 6720 ([employer]) (test code = DAS[facility] Garcia [facility], 1538) 87014: Admissions Dean/Techni estefani ID = [id number] for OL MAVERICK, SUREKHA BASIC METABOLIC [id number] 06:49:00 Test Item Value Reference Range Interpretation [...] S NOT APPLICABLE FOR DIALYSIS PATIEN TS. Admissions Dean ID - PIZAYRA [id number] 06:48:00 Test Item Value Reference Range Interpretation Comments MAGNESIUM (BEAKER) (test code = 2.1 mg/dL 1.6-2.6 627) Admissions Dean ID - GARYZAYRA LCBC W/PLT COUNT & AUTO [id number] 05:42:00 Test Item Value Reference Range Interpretation [...] PERCENT (BEAKER) (test code = 2801) CALCIUM, [id number] 05:04:00 Test Item Value Reference Range Interpretation Comments CALCIUM IONIZED (BEAKER) (test 1.02 mmol/L 1.12-1.27 L code = 698) PH, BLOOD (BEAKER) (test code = 7.42 1810) POCT-GLUCOSE [id number] 21:20:00 Test Item Value Reference Range Interpretation Comments POC-GLUCOSE METER 334 mg/dL 70-110 H : TESTED A T [facility] 6720 (BEAKER) (test code = [facility] [place], 1538) 00016: Admissions Dean/Techni estefani ID = [id number] for JAD SALGUERO POCT-GLUCOSE [id number] 17:37:00 Test Item Value Reference Range Interpretation Comments POC-GLUCOSE METER 256 mg/dL 70-110 H : TESTED Vikas T [facility] 6720 (BEAKER) (test code = [facility] [place], 1538) 57319: Admissions Dean/Techni estefani ID = [id number] for JACOB LYLES SARS-COV2/RT-PCR ([facility])2019-11-13 13:07:00 Test Item Value Reference Range Interpretation Comments SARS-COV2/RT-PCR (test Negative Not Detected, Negative, code = 3169445) See external report for linked test SARS-COV-2 PERFORMING LAB [facility] KEELY (test code = 0826051) Negative result for this test determines that [...] 564(g) of the Act.Fact Sheet for Healthcare Providers:https://www.[employer]/sites/default/files/product/documents/Fact_Sherohit k_CS_Reqoglokv_Dmbc_PEOU-TmN-6.pdfFact Sheet for Healthcare Patients:https://www.[employer]/sites/default/files/product/ documents/Eqdr_Idpfo_Lmhthsim_Gurl_HNMG-ApR-4.pdfPerforming Laboratory:[facility].[place], [place] [address]HUWJU METABOLIC PANEL 2019-11-13 06:03:00 Test Item Value [...] S NOT APPLICABLE FOR DIALYSIS PATIEN TS. Admissions Dean ID - PIAYA LPOCT-GLUCOSE [id number] 21:20:00 Test Item Value Reference Range Interpretation Comments POC-GLUCOSE METER 234 mg/dL 70-110 H : TESTED A T [facility] 6720 (BEAKER) (test code = DAS[facility] Garcia [facility], 1538) 13879: Admissions Dean/Techni estefani ID = [id number] for CRYSTAL RANGEL POCT-GLUCOSE [id number] 17:07:00 Test Item Value Reference Range Interpretation Comments POC-GLUCOSE METER 233 mg/dL 70-110 H : TESTED A T [facility] 6720 (BEAKER) (test code = DAS[facility] Garcia [facility], 1538) 39474: Admissions Dean/Techni estefani ID = [id number] for GUNNER PANDYA POCT-GLUCOSE [id number] 12:06:00 Test Item Value Reference Range Interpretation Comments POC-GLUCOSE METER 248 mg/dL 70-110 H : TESTED A T [facility] 6720 (BEAKER) (test code = D[facility] Garcia [facility], 1538) 40493: Admissions Dean/Techni estefani ID = [id number] for GUNNER PANDYA BASIC METABOLIC [id number] 11:18:00 Test Item Value Reference Range Interpretation [...] S NOT APPLICABLE FOR DIALYSIS PATIEN TS. Admissions Dean ID - JAQUELINE MOperator ID - JEREMY [id number] 11:15:00 Test Item Value Reference Range Interpretation Comments MAGNESIUM (BEAKER) (test code = 2.0 mg/dL 1.6-2.6 627) Admissions Dean ID - JEREMY MPOCT-GLUCOSE [id number] 07:56:00 Test Item Value Reference Range Interpretation Comments POC-GLUCOSE METER 137 mg/dL 70-110 H : TESTED A T [facility] 6720 (BEAKER) (test code = [facility] [place], 1538) [address]857: Admissions Dean/Techni estefani ID = [id number] for GUNNER PANDYA CALCIUM, [id number] 07:50:00 Test Item Value Reference Range Interpretation Comments CALCIUM IONIZED (BEAKER) (test 0.98 mmol/L 1.12-1.27 L code = 698) PH, BLOOD (BEAKER) (test code = 7.42 1810) CBC W/PLT COUNT & AUTO [id number] 06:03:00 Test Item Value Reference Range Interpretation [...] PERCENT (BEAKER) (test code = 2801) POCT-GLUCOSE [id number] 21:00:00 Test Item Value Reference Range Interpretation Comments POC-GLUCOSE METER 233 mg/dL 70-110 H : TESTED A T [facility] 6720 (BEAKER) (test code = [facility], 1538) [address]344: Admissions Dean/Techni estefani ID = [id number] for SJ HERBERT POCT-GLUCOSE [id number] 16:59:00 Test Item Value Reference Range Interpretation Comments POC-GLUCOSE METER 237 mg/dL 70-110 H : TESTED A T [facility] 6720 (BEAKER) (test code = [facility], 1538) [address]: Admissions Dean/Techni estefani ID = [id number] for GUNNER PANDYA CREATINE KINASE (CK)2019-11-11 12:29:00 Test Item Value Reference Range Interpretation Comments CREATINE KINASE TOTAL (BEAKER) (test 32 U/L 29-200 code = 380) Admissions Dean ID - ANTONY FPOCT-GLUCOSE [id number] 12:04:00 Test Item Value Reference Range Interpretation Comments POC-GLUCOSE METER 237 mg/dL 70-110 H : TESTED A T [facility] 6720 (BEAKER) (test code = [facility], 1538) 93981: Admissions Dean/Techni estefani ID = [id number] for GUNNER PANDYA SURGICALLY OBTAINED CULTURE + GRAM [id number] 10:13:00 Test Item Value Reference Range Interpretation [...] No organisms seen (BEAKER) (test code = 397192) BASIC METABOLIC [id number] 08:46:00 Test Item Value Reference Range Interpretation [...] S NOT APPLICABLE FOR DIALYSIS PATIEN TS. Admissions Dean ID - ANTONY [id number] 08:33:00 Test Item Value Reference Range Interpretation Comments MAGNESIUM (BEAKER) (test code = 2.1 mg/dL 1.6-2.6 627) Admissions Dean ID - ANTONY FPOCT-GLUCOSE [id number] 08:11:00 Test Item Value Reference Range Interpretation Comments POC-GLUCOSE METER 177 mg/dL 70-110 H : TESTED A T [facility] 6720 (BEAKER) (test code = [facility], 1538) 62901: Admissions Dean/Techni estefani ID = [id number] for GUNNER PANDYA CALCIUM, [id number] 07:08:00 Test Item Value Reference Range Interpretation Comments CALCIUM IONIZED (BEAKER) (test 1.01 mmol/L 1.12-1.27 L code = 698) PH, BLOOD (BEAKER) (test code = 7.46 1810) CBC W/PLT COUNT & AUTO [id number] 06:12:00 Test Item Value Reference Range Interpretation [...] PERCENT (BEAKER) (test code = 2801) BLOOD [id number] 06:00:00 Test Item Value Reference Range Interpretation Comments CULTURE (BEAKER) (test No growth in 5 days code = 1095) BLOOD [id number] 00:00:00 Test Item Value Reference Range Interpretation Comments CULTURE (BEAKER) (test No growth in 5 days code = 1095) POCT-GLUCOSE [id number] 20:39:00 Test Item Value Reference Range Interpretation Comments POC-GLUCOSE METER 187 mg/dL 70-110 H : TESTED A T [facility] 6720 (BEAKER) (test code = [facility], 153) 13646: Admissions Dean/Techni estefani ID = [id number] for UL ERIC SJ POCT-GLUCOSE [id number] 12:11:00 Test Item Value Reference Range Interpretation Comments POC-GLUCOSE METER 239 mg/dL 70-110 H : TESTED A T [facility] 6720 (BEAKER) (test code = [facility], 153) 28987: Admissions Dean/Techni estefani ID = [id number] for SA JACOB DE LEON BASIC METABOLIC [id number] 09:32:00 Test Item Value Reference Range Interpretation [...] S NOT APPLICABLE FOR DIALYSIS PATIEN TS. Admissions Dean ID - DANITZA [id number] 09:15:00 Test Item Value Reference Range Interpretation Comments MAGNESIUM (BEAKER) (test code = 2.3 mg/dL 1.6-2.6 627) Admissions Dean ID - DANITZA LPOCT-GLUCOSE [id number] 08:14:00 Test Item Value Reference Range Interpretation Comments POC-GLUCOSE METER 173 mg/dL 70-110 H : [facility] (test code = [facility], 1538) 90759: Admissions Dean/Techni estefani ID = [id number] for SA JACOB DE LEON CALCIUM, [id number] 07:23:00 Test Item Value Reference Range Interpretation Comments CALCIUM IONIZED (BEAKER) (test 1.02 mmol/L 1.12-1.27 L code = 698) PH, BLOOD (BEAKER) (test code = 7.39 1810) CBC W/PLT COUNT & AUTO [id number] 06:22:00 Test Item Value Reference Range Interpretation [...] (BEAKER) (test code = 2801) VANCOMYCIN LEVEL, [id number] 06:07:00 Test Item Value Reference Range Interpretation Comments VANCOMYCIN RANDOM (BEAKER) (test 29.4 ug/mL code = 523) Reference Range: No NormalsOperator ID - PIAYA LPOCT-GLUCOSE [id number] 21:26:00 Test Item Value Reference Range Interpretation Comments POC-GLUCOSE METER 250 mg/dL 70-110 H : TESTED A T [facility] 6720 (BEAKER) (test code = [facility], 1538) 52498: Admissions Dean/Techni estefani ID = [id number] for SJ HEBRERT POCT-GLUCOSE [id number] 17:14:00 Test Item Value Reference Range Interpretation Comments POC-GLUCOSE METER 283 mg/dL 70-110 H : TESTED A T [facility] 6720 (BEAKER) (test code = [facility], 1538) 59347: Admissions Dean/Techni estefani ID = [id number] for GUNNER PANDYA POCT-GLUCOSE [id number] 12:13:00 Test Item Value Reference Range Interpretation Comments POC-GLUCOSE METER 233 mg/dL 70-110 H : TESTED A T [facility] 6720 (BEAKER) (test code = [facility], 1538) 19626: Admissions Dean/Techni estefani ID = [id number] for GUNNER PANDYA SPIN/CONCENTRATION [id number] 10:35:00 Test Item Value Reference Range Interpretation Comments CONCENTRATION CHARGED (BEAKER) (test Done code = 2657) POCT-GLUCOSE [id number] 08:01:00 Test Item Value Reference Range Interpretation Comments POC-GLUCOSE METER 195 mg/dL 70-110 H : TESTED A T [facility] 6720 (BEAKER) (test code = [facility], 1538) 79886: Admissions Dean/Techni estefani ID = [id number] for GUNNER PANDYA BASIC METABOLIC [id number] 06:24:00 Test Item Value Reference Range Interpretation [...] S NOT APPLICABLE FOR DIALYSIS PATIEN TS. Admissions Dean ID - [id number] 06:07:00 Test Item Value Reference Range Interpretation Comments PHOSPHORUS (BEAKER) (test code = 5.2 mg/dL 2.3-4.7 H 604) Admissions Dean ID - [id number] 06:07:00 Test Item Value Reference Range Interpretation Comments MAGNESIUM (BEAKER) (test code = 2.1 mg/dL 1.6-2.6 627) Admissions Dean ID - EDASICBC W/PLT COUNT & AUTO [id number] 06:02:00 Test Item Value Reference Range Interpretation [...] PERCENT (BEAKER) (test code = 2801) CALCIUM, [id number] 05:45:00 Test Item Value Reference Range Interpretation Comments CALCIUM IONIZED (BEAKER) (test 0.97 mmol/L 1.12-1.27 L code = 698) PH, BLOOD (BEAKER) (test code = 7.43 1810) POCT-GLUCOSE [id number] 21:43:00 Test Item Value Reference Range Interpretation Comments POC-GLUCOSE METER 343 mg/dL 70-110 H : TESTED A T [facility] 6720 (BEAKER) (test code = [facility] Garcia [facility], 1538) 25723: Admissions Dean/Techni estefani ID = [id number] for CA RBAJAL, TIMA RAD, FOOT, 2 VIEWS, [id number] 21:02:00Reason for exam:->post op revision fo TMA, [...] amputation of the right foot.. Signed: Francisco Earlyepgarland Verified Date/Time: 11/08/2019 21:02:38 Reading Location: [facility] C0[facility] Transitional Reading Room POCT-GLUCOSE [id number] 17:48:00 Test Item Value Reference Range Interpretation Comments POC-GLUCOSE METER 135 mg/dL 70-110 H : TESTED A T [facility] 6720 (BEAKER) (test code = [facility], 1538) 02654: Admissions Dean/Techni estefani ID = [id number] for JACOB LYLES POCT-GLUCOSE [id number] 16:57:00 Test Item Value Reference Range Interpretation Comments POC-GLUCOSE METER 130 mg/dL 70-110 H : TESTED A T [facility] 6720 (BEAKER) (test code = [facility], 1538) 61417: Admissions Dean/Techni estefani ID = [id number] for ROSE GONZALES POCT-GLUCOSE [id number] 12:31:00 Test Item Value Reference Range Interpretation Comments POC-GLUCOSE METER 117 mg/dL 70-110 H : TESTED A T [facility] 6720 (BEAKER) (test code = [facility] [employer] [facility], 1538) 60082: Admissions Dean/Techni estefani ID = [id number] for Destini Contreras BASIC METABOLIC [id number] 06:39:00 Test Item Value Reference Range Interpretation [...] S NOT APPLICABLE FOR DIALYSIS PATIEN TS. Admissions Dean ID - DANITZA [id number] 06:38:00 Test Item Value Reference Range Interpretation Comments PHOSPHORUS (BEAKER) (test code = 5.2 mg/dL 2.3-4.7 H 604) Admissions Dean ID - DANITZA [id number] 06:38:00 Test Item Value Reference Range Interpretation Comments MAGNESIUM (BEAKER) (test code = 2.1 mg/dL 1.6-2.6 627) Admissions Dean ID - DANITZA LVANCOMYCIN LEVEL, [id number] 06:18:00 Test Item Value Reference Range Interpretation Comments VANCOMYCIN RANDOM (BEAKER) (test 14.1 ug/mL code = 523) Reference Range: No NormalsOperator ID - DANITZA LCBC W/PLT COUNT & AUTO [id number] 05:32:00 Test Item Value Reference Range Interpretation [...] PERCENT (BEAKER) (test code = 2801) POCT-GLUCOSE [id number] 21:15:00 Test Item Value Reference Range Interpretation Comments POC-GLUCOSE METER 199 mg/dL 70-110 H : TESTED A T [facility] 6720 (BEAKER) (test code = [facility], 1538) 50377: Admissions Dean/Techni estefani ID = [id number] for SA HIGGINS, CRYSTAL POCT-GLUCOSE [id number] 17:20:00 Test Item Value Reference Range Interpretation Comments POC-GLUCOSE METER 214 mg/dL 70-110 H : TESTED A T [facility] 6720 (BEAKER) (test code = [facility] [employer] [facility], 1538) 76369: Admissions Dean/Techni estefani ID = [id number] for SA NTOS, JACOB POCT-GLUCOSE [id number] 12:59:00 Test Item Value Reference Range Interpretation Comments POC-GLUCOSE METER 135 mg/dL 70-110 H : TESTED A T [facility] 6720 (BEAKER) (test code = [facility], 1538) 94496: Admissions Dean/Techni estefani ID = [id number] for JACOB LYLES POCT-GLUCOSE [id number] 06:05:00 Test Item Value Reference Range Interpretation Comments POC-GLUCOSE METER 130 mg/dL 70-110 H : TESTED A T [facility] 6720 (BEAKER) (test code = [facility], 1538) 24149: Admissions Dean/Techni estefani ID = [id number] for SJ HERBERT BASIC METABOLIC [id number] 05:38:00 Test Item Value Reference Range Interpretation [...] S NOT APPLICABLE FOR DIALYSIS PATIEN TS. Admissions Dean ID - [id number] 05:36:00 Test Item Value Reference Range Interpretation Comments PHOSPHORUS (BEAKER) (test code = 5.1 mg/dL 2.3-4.7 H 604) Admissions Dean ID - [id number] 05:36:00 Test Item Value Reference Range Interpretation Comments MAGNESIUM (BEAKER) (test code = 2.2 mg/dL 1.6-2.6 627) Admissions Dean ID - EDASIPOCT-GLUCOSE [id number] 03:01:00 Test Item Value Reference Range Interpretation Comments POC-GLUCOSE METER 72 mg/dL 70-110 : TESTED A T [facility] 6720 (BEAKER) (test code = [facility], 1538) 37381: Admissions Dean/Techni estefani ID = [id number] for ADRY TTIL, SJ POCT-GLUCOSE [id number] 00:16:00 Test Item Value Reference Range Interpretation Comments POC-GLUCOSE METER 94 mg/dL 70-110 : TESTED A T [facility] 6720 (BEAKER) (test code = [facility], 1538) 43242: Admissions Dean/Techni estefani ID = [id number] for ADRY TTIL, SJ POCT-GLUCOSE [id number] 23:44:00 Test Item Value Reference Range Interpretation Comments POC-GLUCOSE METER 57 mg/dL 70-110 L : TESTED A T [facility] 6720 (BEAKER) (test code = [facility], 1538) 62519: Admissions Dean/Techni estefani ID = [id number] for ADRY TTIL, SJ POCT-GLUCOSE [id number] 21:06:00 Test Item Value Reference Range Interpretation Comments POC-GLUCOSE METER 80 mg/dL 70-110 : TESTED A T [facility] 6720 (BEAKER) (test code = [facility], 1538) 07416: Admissions Dean/Techni estefani ID = [id number] for ADRY TTIL, SJ POCT-GLUCOSE [id number] 18:03:00 Test Item Value Reference Range Interpretation Comments POC-GLUCOSE METER 70 mg/dL 70-110 : TESTED A T [facility] 6720 (BEAKER) (test code = [facility], 1538) 12375: Admissions Dean/Techni estefani ID = [id number] for JUAN Z, EVONNE VIAL POCT-GLUCOSE [id number] 17:47:00 Test Item Value Reference Range Interpretation Comments POC-GLUCOSE METER 45 mg/dL 70-110 L : TESTED A T [facility] 6720 (BEAKER) (test code = [facility], 1538) 70107: Admissions Dean/Techni estefani ID = [id number] for JUAN Z, EVONNE VIAL SARS-COV2/RT-PCR ([facility])2019-11-06 13:38:00 Test Item Value Reference Range Interpretation Comments SARS-COV2/RT-PCR (test Negative Not Detected, Negative, code = 7576708) See external report for linked test SARS-COV-2 PERFORMING LAB [facility] KEELY (test code = 6338010) Negative result for this test determines that [...] 564(g) of the Act.Fact Sheet for Healthcare Providers:https://www.[employer]/sites/default/files/product/documents/Fact_Shee l_PU_Zbvmhvhbt_Ywqp_FOZU-UlH-0.pdfFact Sheet for Healthcare Patients:https://www.[employer].com/sites/default/files/product/ documents/Wpjt_Euwfl_Fuvlfbjm_Nigl_BKYC-XzF-3.pdfPerforming Laboratory:[facility], [place] [id number] 12:56:00 Test Item Value Reference Range Interpretation Comments FERRITIN (BEAKER) (test code = 1137.02 ng/mL 5.00-275.00 H 361) Admissions Dean ID - NTPIRON, TIBC, % SAT. (WITHOUT FERRITIN)2019-11-06 12:36:00 Test Item Value Reference Range Interpretation Comments IRON (BEAKER) (test code = 547) 16.0 ug/dL 40.0-160.0 L TOTAL IRON BINDING CAPACITY 139 ug/dL 250-450 L (BEAKER) (test code = 769) IRON % SATURATION (2) (BEAKER) 12 % 20-55 L (test code = 2590) Admissions Dean ID - NTPRAD, FOOT, MIN 3 VIEWS, [id number] 11:14:00Reason for exam:->Nonhealing right TMA stump; open [...] MDReport Verified Date/Time: 11/06/2019 11:14:48 Reading Location: [facility] Radiology Reading Room POCT-GLUCOSE [id number] 06:53:00 Test Item Value Reference Range Interpretation Comments POC-GLUCOSE METER 81 mg/dL 70-110 : TESTED A T [facility] 6720 (BEAKER) (test code = [facility] Garcia [facility], 1538) 46976: Admissions Dean/Techni estefani ID = [id number] for ADRY TTIL, SJ [id number] 06:44:00 Test Item Value Reference Range Interpretation Comments MAGNESIUM (BEAKER) (test code = 2.3 mg/dL 1.6-2.6 627) Admissions Dean ID - [id number] 06:44:00 Test Item Value Reference Range Interpretation Comments PHOSPHORUS (BEAKER) (test code = 5.4 mg/dL 2.3-4.7 H 604) Admissions Dean ID - DBPOCT-GLUCOSE [id number] 06:36:00 Test Item Value Reference Range Interpretation Comments POC-GLUCOSE METER 61 mg/dL 70-110 L : TESTED A T [facility] 6720 (BEAKER) (test code = [facility] [place], 1538) 40911: Admissions Dean/Techni estefani ID = [id number] for SJ WHITAKER CBC W/PLT COUNT & AUTO [id number] 06:23:00 Test Item Value Reference Range Interpretation [...] (BEAKER) (test code = 2801) VANCOMYCIN LEVEL, [id number] 06:22:00 Test Item Value Reference Range Interpretation Comments VANCOMYCIN RANDOM (BEAKER) (test 12.3 ug/mL code = 523) Reference Range: No NormalsOperator ID - EDASIPOCT-GLUCOSE [id number] 06:07:00 Test Item Value Reference Range Interpretation Comments POC-GLUCOSE METER 42 mg/dL 70-110 L : TESTED A T [facility] 6720 (BEAKER) ([facility], 1538) 27303: Admissions Dean/Techni estefani ID = [id number] for SJ WHITAKER CREATINE KINASE (CK)2019-11-06 05:29:00 Test Item Value Reference Range Interpretation Comments CREATINE KINASE TOTAL (BEAKER) (test 131 U/L 29-200 code = 380) Admissions Dean ID - EDASICOMPREHENSIVE METABOLIC [id number] 05:29:00 Test Item Value Reference Range Interpretation [...] S NOT APPLICABLE FOR DIALYSIS PATIEN TS. Admissions Dean ID - EDASICOMPREHENSIVE METABOLIC [id number] 23:15:00 Test Item Value Reference Range Interpretation [...] S NOT APPLICABLE FOR DIALYSIS PATIEN TS. Admissions Dean ID - DBLACTIC ACID, [id number] 23:09:00 Test Item Value Reference Range Interpretation Comments LACTATE BLOOD VENOUS (2) (AKER) 1.19 mmol/L 0.50-2.20 (test code = 2872) Admissions Dean ID - DBPOCT-GLUCOSE [id number] 22:24:00 Test Item Value Reference Range Interpretation Comments POC-GLUCOSE METER 103 mg/dL 70-110 : TESTED A T [facility] 6720 ([facility]) (test code = [facility], 153) 51148: Admissions Dean/Techni estefani ID = [id number] for UL LATTIL, SJ POCT-GLUCOSE [id number] 21:50:00 Test Item Value Reference Range Interpretation Comments POC-GLUCOSE METER 63 mg/dL 70-110 L : TESTED A T [facility] 6720 (BEAKER) (test code = [facility], 1538) 11481: Admissions Dean/Techni estefani ID = [id number] for ADRY TTIL, SJ POCT-GLUCOSE [id number] 21:33:00 Test Item Value Reference Range Interpretation Comments POC-GLUCOSE METER 42 mg/dL 70-110 L : TESTED A T [facility] 6720 (BEAKER) (test code = [facility], 1538) 82665: Admissions Dean/Techni estefani ID = [id number] for ADRY TTIL, SJ ANAEROBIC [id number] 19:16:00 Test Item Value Reference Range Interpretation Comments CULTURE (BEAKER) A 2+ Same org anism has been (test code = 1095) isolated from culture(s) of the same body s ite and collection date . Repeat identification performed only after cons ultation with the [facility] microbiology laboratory.Refe r to previous cultur e of* - Cutibacterium a cnes ANAEROBIC [id number] 19:13:00 Test Item Value Reference Range Interpretation Comments CULTURE (BEAKER) (test A 2+ Cu tibacterium acnes code = 1095) POCT-GLUCOSE [id number] 11:08:00 Test Item Value Reference Range Interpretation Comments POC-GLUCOSE METER 136 mg/dL 70-110 H : TESTED A T [facility] 6720 (BEAKER) (test code = [place], 1538) 90557: Admissions Dean/Techni estefani ID = [id number] for VAHID GARCIA, YUNIOR POCT-GLUCOSE [id number] 07:51:00 Test Item Value Reference Range Interpretation Comments POC-GLUCOSE METER 89 mg/dL 70-110 : TESTED A T [facility] 6720 (BEAKER) (test code = [place], 1538) 07096: Admissions Dean/Techni estefani ID = [id number] for YUNIOR JOHNSTON POCT-GLUCOSE [id number] 21:07:00 Test Item Value Reference Range Interpretation Comments POC-GLUCOSE METER 145 mg/dL 70-110 H : TESTED A T [facility] 6720 (BEAKER) (test code = [place], 1538) 78544: Admissions Dean/Techni estefani ID = [id number] for AN RON BAIRD POCT-GLUCOSE [id number] 14:59:00 Test Item Value Reference Range Interpretation Comments POC-GLUCOSE METER 152 mg/dL 70-110 H : TESTED A T [facility] 6720 (BEAKER) (test code = [employer] [facility], 1538) 64236: Admissions Dean/Techni estefani ID = [id number] for Prasanna neumannMary Lou BASIC METABOLIC [id number] 10:10:00 Test Item Value Reference Range Interpretation [...] S NOT APPLICABLE FOR DIALYSIS PATIEN TS. Admissions Dean ID - EDASISURGICALLY OBTAINED CULTURE + GRAM [id number] 09:54:00 Test Item Value Reference Range Interpretation Comments CULTURE (BEAKER) A <1+ Same or ganism has (test code = been isolated f rom 1095) cultures(s) of the same body site and collection date . Repeat identifi cation and susceptibil ity testing perform ed only after consultat ion with the [facility] microbiology laboratory.Refe r to previous cultur e ofCandida parap silosis GRAM STAIN 1+ WBCs RESULT (BEAKER) (test code = 1123) GRAM STAIN <1+ gram RESULT (BEAKER) negative rods (test code = 629010) GRAM STAIN <1+ gram RESULT (BEAKER) positive cocci (test code = in pairs 240464) 1+ Skin floraSURGICALLY OBTAINED CULTURE + GRAM [id number] 09:49:00 Test Item Value Reference Interpretation Comments [...] gram negative (BEAKER) (test code = rods 501403) GRAM STAIN RESULT <1+ gram positive (BEAKER) (test code = rods 052826) GRAM STAIN RESULT 2+ gram positive (BEAKER) (test code = cocci in pairs 515231) GRAM STAIN RESULT 1+ gram positive (BEAKER) (test code = cocci in clusters 420613) GRAM STAIN RESULT 1+ yeast (BEAKER) (test code = 807566) 3+ Skin lake consisting of Coagulase Negative Staphylococcus and Diphtheroid species.POCT-GLUCOSE [id number] 08:04:00 Test Item Value Reference Range Interpretation Comments POC-GLUCOSE METER 92 mg/dL 70-110 : TESTED A T [facility] 6720 (BEAKER) (test code = [facility], [facility]) 56379: Admissions Dean/Techni estefani ID = [id number] for Will Phil valadez POCT-GLUCOSE [id number] 21:49:00 Test Item Value Reference Range Interpretation Comments POC-GLUCOSE METER 155 mg/dL 70-110 H : TESTED A T [facility] 6720 (BEAKER) (test code = [facility], [facility]) 93550: Admissions Dean/Techni estefani ID = [id number] for RON GODWIN POCT-GLUCOSE [id number] 18:15:00 Test Item Value Reference Range Interpretation Comments POC-GLUCOSE METER 160 mg/dL 70-110 H : TESTED A T [facility] 6720 (BEAKER) (test code = [facility], 1538) 38531: Admissions Dean/Techni estefani ID = [id number] for Celi Jesus POCT-GLUCOSE [id number] 14:24:00 Test Item Value Reference Range Interpretation Comments POC-GLUCOSE METER 182 mg/dL 70-110 H : TESTED A T [facility] 6720 (BEAKER) (test code = [facility], 1538) 62748: Admissions Dean/Techni estefani ID = [id number] for Celi Jesus POCT-GLUCOSE [id number] 09:44:00 Test Item Value Reference Range Interpretation Comments POC-GLUCOSE METER 146 mg/dL 70-110 H : TESTED A T [facility] 6720 (BEAKER) (test code = [facility] [place], 1538) 40553: Admissions Dean/Techni estefani ID = [id number] for Celi Jesus BASIC METABOLIC [id number] 07:20:00 Test Item Value Reference Range Interpretation [...] S NOT APPLICABLE FOR DIALYSIS PATIEN TS. Admissions Dean ID - PIAYA LCBC W/PLT COUNT & AUTO [id number] 05:47:00 Test Item Value Reference Range Interpretation [...] PERCENT (BEAKER) (test code = 2801) POCT-GLUCOSE [id number] 05:39:00 Test Item Value Reference Range Interpretation Comments POC-GLUCOSE METER 200 mg/dL 70-110 H : TESTED Vikas Velásquez [facility] 6720 (BEAKER) (test code = [facility] [place], 1538) 19578: Admissions Dean/Techni estefani ID = [id number] for CHRIS MAJANO POCT-GLUCOSE [id number] 05:35:00 Test Item Value Reference Range Interpretation Comments POC-GLUCOSE METER 120 mg/dL 70-110 H : TESTED A T [facility] 6720 (BEAKER) (test code = [facility], 153) 22876: Admissions Dean/Techni estefani ID = [id number] for EVONNE RUBY POCT-GLUCOSE [id number] 05:25:00 Test Item Value Reference Range Interpretation Comments POC-GLUCOSE METER 126 mg/dL 70-110 H : TESTED A T [facility] 6720 (BEAKER) (test code = [facility], [facility]8) 86508: Admissions Dean/Techni estefani ID = [id number] for Celi Jesus POCT-GLUCOSE [id number] 05:19:00 Test Item Value Reference Range Interpretation Comments POC-GLUCOSE METER 103 mg/dL 70-110 : TESTED A T [facility] 6720 (BEAKER) (test code = [facility], [facility]) 39099: Admissions Dean/Techni estefani ID = [id number] for Celi Jesus HEPATITIS B SURFACE [id number] 11:26:00 Test Item Value Reference Range Interpretation Comments HEPATITIS B SURFACE ANTIGEN (2) Nonreactive Nonreactive (BEAKER) (test code = 2585) Specimen is considered negative for HBsAg.POCT-GLUCOSE [id number] 21:38:00 Test Item Value Reference Range Interpretation Comments POC-GLUCOSE METER 170 mg/dL 70-110 H : TESTED A T [facility] 6720 (BEAKER) (test code = [facility], [facility]) 22274: Admissions Dean/Techni estefani ID = [id number] for RON GODWIN POCT-GLUCOSE [id number] 17:00:00 Test Item Value Reference Range Interpretation Comments POC-GLUCOSE METER 150 mg/dL 70-110 H : TESTED A T [facility] 6720 (BEAKER) (test code = [facility], 153) 63310: Admissions Dean/Techni estefani ID = [id number] for Claudia normKatie borden POCT-GLUCOSE [id number] 08:37:00 Test Item Value Reference Range Interpretation Comments POC-GLUCOSE METER 105 mg/dL 70-110 : TESTED A T [facility] 6720 (BEAKER) (test code = [facility], [facility]8) [address]: Admissions Dean/Techni estefani ID = [id number] for Katie Medrano POCT-GLUCOSE [id number] 17:56:00 Test Item Value Reference Range Interpretation Comments POC-GLUCOSE METER 96 mg/dL 70-110 : TESTED A T [facility] 67[facility] (BEAKER) (test code = [facility], 1538) [address]: Admissions Dean/Techni estefani ID = [id number] for ROSE CHAVEZ BLOOD GAS, [id number] 17:17:00 Test Item Value Reference Range Interpretation [...] code = 1819) 90.0 % SODIUM NA-STAT [id number] 17:17:00 Test Item Value Reference Range Interpretation Comments SODIUM (BEAKER) (test code = 381) 134 meq/L 136-145 L HGB/HCT (H&H) - STAT [id number] 17:17:00 Test Item Value Reference Range Interpretation Comments HEMOGLOBIN (BEAKER) (test code = 11.4 g/dL 13.0-16.8 L 410) HEMATOCRIT (BEAKER) (test code = 34.0 % 40.0-50.0 L 411) CALCIUM, [id number] 17:17:00 Test Item Value Reference Range Interpretation Comments CALCIUM IONIZED (BEAKER) (test 1.22 mmol/L 1.12-1.27 code = 698) PH, BLOOD (BEAKER) (test code = 7.30 1810) GLUCOSE-STAT [id number] 17:16:00 Test Item Value Reference Range Interpretation Comments GLUCOSE RANDOM (BEAKER) (test code = 92 mg/dL 70-110 652) POTASSIUM-STAT [id number] 17:16:00 Test Item Value Reference Range Interpretation Comments POTASSIUM (BEAKER) (test code = 4.3 meq/L 3.6-5.5 379) CALCIUM, [id number] 15:59:00 Test Item Value Reference Range Interpretation Comments CALCIUM IONIZED (BEAKER) (test 1.07 mmol/L 1.12-1.27 L code = 698) PH, BLOOD (BEAKER) (test code = 7.48 1810) BLOOD GAS, [id number] 15:59:00 Test Item Value Reference Range Interpretation [...] code = 1819) 50.0 % SODIUM NA-STAT [id number] 15:59:00 Test Item Value Reference Range Interpretation Comments SODIUM (BEAKER) (test code = 381) 133 meq/L 136-145 L HGB/HCT (H&H) - STAT [id number] 15:59:00 Test Item Value Reference Range Interpretation Comments HEMOGLOBIN (BEAKER) (test code = 10.8 g/dL 13.0-16.8 L 410) HEMATOCRIT (BEAKER) (test code = 32.0 % 40.0-50.0 L 411) GLUCOSE-STAT [id number] 15:58:00 Test Item Value Reference Range Interpretation Comments GLUCOSE RANDOM (BEAKER) (test code 101 mg/dL 70-110 = 652) POTASSIUM-STAT [id number] 15:58:00 Test Item Value Reference Range Interpretation Comments POTASSIUM (BEAKER) (test code = 4.1 meq/L 3.6-5.5 379) CALCIUM, [id number] 15:12:00 Test Item Value Reference Range Interpretation Comments CALCIUM IONIZED (BEAKER) (test 1.07 mmol/L 1.12-1.27 L code = 698) PH, BLOOD (BEAKER) (test code = 7.48 1810) BLOOD GAS, [id number] 15:12:00 Test Item Value Reference Range Interpretation [...] code = 1819) 50.0 % SODIUM NA-STAT [id number] 15:12:00 Test Item Value Reference Range Interpretation Comments SODIUM (BEAKER) (test code = 381) 134 meq/L 136-145 L GLUCOSE-STAT [id number] 15:12:00 Test Item Value Reference Range Interpretation Comments GLUCOSE RANDOM (BEAKER) (test code = 64 mg/dL 70-110 L 652) HGB/HCT (H&H) - STAT [id number] 15:12:00 Test Item Value Reference Range Interpretation Comments HEMOGLOBIN (BEAKER) (test code = 10.9 g/dL 13.0-16.8 L 410) HEMATOCRIT (BEAKER) (test code = 32.0 % 40.0-50.0 L 411) POTASSIUM-STAT [id number] 15:10:00 Test Item Value Reference Range Interpretation Comments POTASSIUM (BEAKER) (test code = 4.2 meq/L 3.6-5.5 379) SARS-COV2/RT-PCR ([facility])2019-10-18 09:21:00 Test Item Value Reference Range Interpretation Comments SARS-COV2/RT-PCR (test code Negative Not Detected, Negative, = [id number]) See external report for linked test SARS-COV-2 PERFORMING LAB [facility] (test code = 6318901) Negative results do not preclude SARS-CoV-2 infection [...] of the Act.Fact Sheet for Healthcare Pro viders:https://www.[employer]/Documents/Xpert%20Xpress%20SARS%20CoV-2/Fact%20Sh eets/3023802%27DZXW-XQY-3%20HEALTHCARE%20PROVIDERS%20FACT%20SHEET.pdfFact Sheet for Healthcare Patients:https://www.naaya/Documents/Xpert%20Xpress%20SARS%20CoV-2/Fact%20Sheets/3023801%20SARS-COV -2%20PATIENT%20FACT%20SHEET.pdfPerforming Laboratory:[facility].[place], [place] [address]NSZ AND CREATININE [id number] 08:45:00 Test Item Value Reference Range Interpretation Comments BLOOD UREA NITROGEN 58 mg/dL 7-21 H (BEAKER) (test code = 354) CREATININE (BEAKER) 7.72 mg/dL 0.57-1.25 H (test code = 358) BUN/CREAT RATIO 8 Unable to ca lculate (BEAKER) (test code due to n on-numeric = [id number]) results EGFR (BEAKER) (test 7 mL/min/1.73 ESTIMAT ED GFR IS code = 1092) sq m NOT ACCURATE CREATININE CLEARANCE IN PREDICTING GLOMERULAR FILTRATION RATE . ESTIMATED GFR I S NOT APPLICABLE FOR DIALYSIS PATIEN TS. Admissions Dean ID - [id number] 08:43:00 Test Item Value Reference Range Interpretation Comments SODIUM (BEAKER) (test code = 381) 137 meq/L 136-145 POTASSIUM (BEAKER) (test code = 5.1 meq/L 3.5-5.1 379) CHLORIDE (BEAKER) (test code = 382) 100 meq/L 98-107 CO2 (BEAKER) (test code = 355) 23 meq/L 22-29 Admissions Dean ID - [id number] 08:43:00 Test Item Value Reference Range Interpretation Comments GLUCOSE RANDOM (BEAKER) (test code 157 mg/dL 70-105 H = 652) Admissions Dean ID - [id number] 08:16:00 Test Item Value Reference Range Interpretation Comments HEMOGLOBIN (BEAKER) (test code = 11.1 GM/DL 13.7-17.5 L 410) Admissions Dean ID - [id number] 08:16:00 Test Item Value Reference Range Interpretation Comments PLATELET COUNT (BEAKER) (test 259 K/CU MM 150-450 code = 756) Admissions Dean ID - 6000POCT-GLUCOSE [id number] 06:26:00 Test Item Value Reference Range Interpretation Comments POC-GLUCOSE METER 129 mg/dL 70-110 H [facility]BE[facility]ER[facility] (test code [facility], = 1538) 80494: Admissions Dean/Techni estefani ID = [id number] for JORD AN, LACRYSTAL BUN AND CREATININE [id number] 10:25:00 Test Item Value Reference Range Interpretation [...] S NOT APPLICABLE FOR DIALYSIS PATIEN TS. Admissions Dean ID - [id number] 10:23:00 Test Item Value Reference Range Interpretation Comments SODIUM (BEAKER) (test code = 381) 140 meq/L 136-145 POTASSIUM (BEAKER) (test code = 4.5 meq/L 3.5-5.1 379) CHLORIDE (BEAKER) (test code = 382) 101 meq/L 98-107 CO2 (BEAKER) (test code = 355) 26 meq/L 22-29 Admissions Dean ID - [id number] 10:23:00 Test Item Value Reference Range Interpretation Comments GLUCOSE RANDOM (BEAKER) (test code 157 mg/dL 70-105 H = 652) Admissions Dean ID - [id number] 10:11:00 Test Item Value Reference Range Interpretation Comments HEMOGLOBIN (BEAKER) (test code = 12.2 GM/DL 13.7-17.5 L 410) Admissions Dean ID - [id number] CULTURE + SMEAR (NON-SPUTUM)2019-08-01 12:08:00 Test Item Value Reference Range Interpretation Comments CULTURE (BEAKER) (test No acid-fast bacilli code = 1095) isolated in 42 days AFB SMEAR (BEAKER) No acid fast bacilli (test code = 994) seen FUNGUS CULTURE + [id number] 17:59:00 Test Item Value Reference Range Interpretation Comments CULTURE (BEAKER) (test No fungus isolated in code = 1095) 28 days FUNGUS SMEAR (BEAKER) No fungal elements seen (test code = 1406) POCT-GLUCOSE [id number] 12:17:00 Test Item Value Reference Range Interpretation Comments POC-GLUCOSE METER 159 mg/dL 70-110 H : TESTED A T [facility] 6720 (BEAKER) (test code = [place], 1538) 53954: Admissions Dean/Techni estefani ID = [id number] for BLESSING TUTTLE POCT-GLUCOSE [id number] 08:03:00 Test Item Value Reference Range Interpretation Comments POC-GLUCOSE METER 119 mg/dL 70-110 H : TESTED A T [facility] 6720 (BEAKER) (test code = DASIA Garcia [facility], 1538) 99742: Admissions Dean/Techni estefani ID = [id number] for Izaiah Barber BASIC METABOLIC [id number] 05:28:00 Test Item Value Reference Range Interpretation [...] S NOT APPLICABLE FOR DIALYSIS PATIEN TS. Admissions Dean ID - JAQUELINE [id number] 05:26:00 Test Item Value Reference Range Interpretation Comments PHOSPHORUS (BEAKER) (test code = 6.1 mg/dL 2.3-4.7 H 604) Admissions Dean ID - JAQUELINE [id number] 05:26:00 Test Item Value Reference Range Interpretation Comments MAGNESIUM (BEAKER) (test code = 2.5 mg/dL 1.6-2.6 627) Admissions Dean ID - JAQUELINE [facility]BC W/PLT COUNT & AUTO [id number] 05:12:00 Test Item Value Reference Range Interpretation [...] PERCENT (BEAKER) (test code = 2801) POCT-GLUCOSE [id number] 21:05:00 Test Item Value Reference Range Interpretation Comments POC-GLUCOSE METER 250 mg/dL 70-110 H : TESTED A T [facility] 6720 (BEAKER) (test code = [facility], 1538) 23983: Admissions Dean/Techni estefani ID = [id number] for BRADEN RANKINO POCT-GLUCOSE [id number] 16:53:00 Test Item Value Reference Range Interpretation Comments POC-GLUCOSE METER 217 mg/dL 70-110 H : TESTED A T [facility] 6720 (BEAKER) (test code = [facility], 1538) 20762: Admissions Dean/Techni estefani ID = [id number] for ENOCH NTER, HIWITHA POCT-GLUCOSE [id number] 11:50:00 Test Item Value Reference Range Interpretation Comments POC-GLUCOSE METER 208 mg/dL 70-110 H : TESTED A T [facility] 6720 (BEAKER) (test code = [facility], 1538) 67581: Admissions Dean/Techni estefani ID = [id number] for ENOCH NTER, HIWITHA ANAEROBIC [id number] 10:57:00 Test Item Value Reference Range Interpretation Comments CULTURE (BEAKER) (test code A 4+ Prevotella bivia = 1095) POCT-GLUCOSE [id number] 07:24:00 Test Item Value Reference Range Interpretation Comments POC-GLUCOSE METER 231 mg/dL 70-110 H : TESTED A T [facility] 6720 (BEAKER) (test code = [facility], 1538) 04020: Admissions Dean/Techni estefani ID = [id number] for HU NTER, HIWITHA BASIC METABOLIC [id number] 04:18:00 Test Item Value Reference Range Interpretation [...] S NOT APPLICABLE FOR DIALYSIS PATIEN TS. Admissions Dean ID - BASSEM [id number] 04:17:00 Test Item Value Reference Range Interpretation Comments PHOSPHORUS (BEAKER) (test code = 5.1 mg/dL 2.3-4.7 H 604) Admissions Dean ID - BASSEM [id number] 04:17:00 Test Item Value Reference Range Interpretation Comments MAGNESIUM (BEAKER) (test code = 2.4 mg/dL 1.6-2.6 627) Admissions Dean ID - BASSEM WCBC W/PLT COUNT & AUTO [id number] 04:17:00 Test Item Value Reference Range Interpretation [...] PERCENT (BEAKER) (test code = 2801) POCT-GLUCOSE [id number] 00:03:00 Test Item Value Reference Range Interpretation Comments POC-GLUCOSE METER 245 mg/dL 70-110 H : TESTED A T [facility] 6720 (BEAKER) (test code = [facility], 153) 18199: Admissions Dean/Techni estefani ID = [id number] for RENEE CHRISTOPHER FRANCK POCT-GLUCOSE [id number] 21:18:00 Test Item Value Reference Range Interpretation Comments POC-GLUCOSE METER 252 mg/dL 70-110 H : TESTED A T [facility] 6720 (BEAKER) (test code = [facility], 153) 46936: Admissions Dean/Techni estefani ID = [id number] for DARNELL WHITMOREENZO POCT-GLUCOSE [id number] 16:53:00 Test Item Value Reference Range Interpretation Comments POC-GLUCOSE METER 175 mg/dL 70-110 H : TESTED A T [facility] 6720 (BEAKER) (test code = [facility], 1538) 05871: Admissions Dean/Techni estefani ID = [id number] for Do minguez, Isaías POCT-GLUCOSE [id number] 13:58:00 Test Item Value Reference Range Interpretation Comments POC-GLUCOSE METER 191 mg/dL 70-110 H : TESTED A T [facility] 6720 (BEAKER) (test code = [facility], 1538) 38402: Admissions Dean/Techni estefani ID = [id number] for Do minguez, Isaías POCT-GLUCOSE [id number] 11:18:00 Test Item Value Reference Range Interpretation Comments POC-GLUCOSE METER 88 mg/dL 70-110 : TESTED A T [facility] 6720 (BEAKER) (test code = [facility], 1538) 44168: Admissions Dean/Techni estefani ID = [id number] for CORNELIUS SANDY POCT-GLUCOSE [id number] 07:59:00 Test Item Value Reference Range Interpretation Comments POC-GLUCOSE METER 112 mg/dL 70-110 H : TESTED A T [facility] 6720 (BEAKER) (test code = [facility], 1538) 68773: Admissions Dean/Techni estefani ID = [id number] for CORNELIUS MAO BASIC METABOLIC [id number] 07:35:00 Test Item Value Reference Range Interpretation [...] S NOT APPLICABLE FOR DIALYSIS PATIEN TS. Admissions Dean ID - DANITZA [id number] 07:27:00 Test Item Value Reference Range Interpretation Comments PHOSPHORUS (BEAKER) (test code = 7.1 mg/dL 2.3-4.7 H 604) Admissions Dean ID - DANITZA [id number] 07:27:00 Test Item Value Reference Range Interpretation Comments MAGNESIUM (BEAKER) (test code = 2.5 mg/dL 1.6-2.6 627) Admissions Dean ID - DANITZA LCBC W/PLT COUNT & AUTO [id number] 06:36:00 Test Item Value Reference Range Interpretation [...] PERCENT (BEAKER) (test code = 2801) POCT-GLUCOSE [id number] 21:42:00 Test Item Value Reference Range Interpretation Comments POC-GLUCOSE METER 171 mg/dL 70-110 H : TESTED A T [facility] 6720 (BEAKER) (test code = [facility], [facility]) 35154: Admissions Dean/Techni estefani ID = [id number] for DA VIS, KAVYA POCT-GLUCOSE [id number] 16:53:00 Test Item Value Reference Range Interpretation Comments POC-GLUCOSE METER 219 mg/dL 70-110 H : TESTED A T [facility] 6720 (BEAKER) (test code = [facility], [facility]8) 40361: Admissions Dean/Techni estefani ID = [id number] for OR PHEY, DALE POCT-GLUCOSE [id number] 12:15:00 Test Item Value Reference Range Interpretation Comments POC-GLUCOSE METER 181 mg/dL 70-110 H : TESTED A T [facility] 6720 (BEAKER) (test code = [facility], 1538) 34607: Admissions Dean/Techni estefani ID = [id number] for OR PHEY, DALE POCT-GLUCOSE [id number] 08:04:00 Test Item Value Reference Range Interpretation Comments POC-GLUCOSE METER 125 mg/dL 70-110 H : TESTED A T [facility] 6720 (BEAKER) (test code = [facility], [facility]8) 92211: Admissions Dean/Techni estefani ID = [id number] for OR PHEY, DALE BASIC METABOLIC [id number] 05:56:00 Test Item Value Reference Range Interpretation [...] S NOT APPLICABLE FOR DIALYSIS PATIEN TS. Admissions Dean ID - PIAYA [id number] 05:16:00 Test Item Value Reference Range Interpretation Comments PHOSPHORUS (BEAKER) (test code = 5.7 mg/dL 2.3-4.7 H 604) Admissions Dean ID - DANITZA [id number] 05:16:00 Test Item Value Reference Range Interpretation Comments MAGNESIUM (BEAKER) (test code = 2.4 mg/dL 1.6-2.6 627) Admissions Dean ID - DANITZA LCBC W/PLT COUNT & AUTO [id number] 05:04:00 Test Item Value Reference Range Interpretation [...] PERCENT (BEAKER) (test code = 2801) POCT-GLUCOSE [id number] 21:56:00 Test Item Value Reference Range Interpretation Comments POC-GLUCOSE METER 182 mg/dL 70-110 H : TESTED Vikas T [facility] 6720 (BEAKER) (test code = [place], 1538) 49642: Admissions Dean/Techni estefani ID = [id number] for Mn alyciaCynthia POCT-GLUCOSE [id number] 17:09:00 Test Item Value Reference Range Interpretation Comments POC-GLUCOSE METER 260 mg/dL 70-110 H : TESTED A T [facility] 6720 (BEAKER) (test code = [facility] Jose [facility], 1538) 56101: Admissions Dean/Techni estefani ID = [id number] for OR DALE URRUTIA POCT-GLUCOSE [id number] 12:02:00 Test Item Value Reference Range Interpretation Comments POC-GLUCOSE METER 244 mg/dL 70-110 H : TESTED A T [facility] 6720 (BEAKER) (test code = [facility] Jose [facility], 1538) 04942: Admissions Dean/Techni estefani ID = [id number] for OR DALE URRUTIA BASIC METABOLIC [id number] 08:22:00 Test Item Value Reference Range Interpretation [...] S NOT APPLICABLE FOR DIALYSIS PATIEN TS. Admissions Dean ID - [id number] 07:57:00 Test Item Value Reference Range Interpretation Comments PHOSPHORUS (BEAKER) (test code = 5.4 mg/dL 2.3-4.7 H 604) Admissions Dean ID - [id number] 07:57:00 Test Item Value Reference Range Interpretation Comments MAGNESIUM (BEAKER) (test code = 2.3 mg/dL 1.6-2.6 627) Admissions Dean ID - LMPOCT-GLUCOSE [id number] 07:55:00 Test Item Value Reference Range Interpretation Comments POC-GLUCOSE METER 154 mg/dL 70-110 H : TESTED Vikas T [facility] 6720 (BEAKER) (test code = [facility], 1538) 07190: Admissions Dean/Techni estefani ID = [id number] for OR DALE URRUTIA CBC W/PLT COUNT & AUTO [id number] 06:10:00 Test Item Value Reference Range Interpretation [...] (BEAKER) (test code = 2801) VANCOMYCIN LEVEL, [id number] 06:06:00 Test Item Value Reference Range Interpretation Comments VANCOMYCIN RANDOM (BEAKER) (test 15.8 ug/mL code = 523) Reference Range: No NormalsOperator ID - LMPOCT-GLUCOSE [id number] 21:02:00 Test Item Value Reference Range Interpretation Comments POC-GLUCOSE METER 231 mg/dL 70-110 H : TESTED A T [facility] 6720 ([facility]) (test code = [facility], [facility]) 70292: Admissions Dean/Techni estefani ID = [id number] for PE RALESTEBAN, WESTLEY POCT-GLUCOSE [id number] 17:06:00 Test Item Value Reference Range Interpretation Comments POC-GLUCOSE METER 227 mg/dL 70-110 H : TESTED A T [facility] 6720 (BEAKER) (test code = [facility], 153) 86297: Admissions Dean/Techni estefani ID = [id number] for OR PHEY, DALE POCT-GLUCOSE [id number] 12:13:00 Test Item Value Reference Range Interpretation Comments POC-GLUCOSE METER 147 mg/dL 70-110 H : TESTED A T [facility] 6720 (BEAKER) (test code = [facility], 153) 88343: Admissions Dean/Techni estefani ID = [id number] for OR PHEY, DALE POCT-GLUCOSE [id number] 11:39:00 Test Item Value Reference Range Interpretation Comments POC-GLUCOSE METER 138 mg/dL 70-110 H : TESTED A T [facility] 6720 (BEAKER) (test code = [facility], 153) 74016: Admissions Dean/Techni estefani ID = [id number] for Sa Izaiah Alcocer TISSUE [id number] 09:01:00Surgical Pathology Report Case: [id number] Authorizing Provider: Star Cloud DPM Collected: 06/19/2019 11:18 AM Ordering Location: [facility] Received: 06/19/2019 11:51 AM SERVICES Pathologist: Jonathan Hutchison MD Specimen: Foot, Right, right forefoot PART A RIGHT FOOT, TRANSMETATARSAL AMPUTATION:GANGRENOUS NECROSIS OF SKIN AND SOFT TISSUE.UNDERLYING ACUTE AND CHRONICOSTEOMYELITIS.STATUS POST PRIOR AMPUTATION.BONE AND SOFT TISSUE MARGINS ARE INVOLVED. Signing Pathologist Direct Phone Line: [phone] signed by Jonathan Hutchison MD on 06/22/2019 at 9:01 [id number] diagnosis: Gangrene, nonhealing wound of right heelA. [...] All three digits display gardner-yellow thickened nails. Mill Order Scheduler sections are submitted as follows:Section code: A1, skin and soft tissue margin en faceA2, previous site of amputationA3, skin lesion and underlying affected bone following decalcificationA4-A5, bone margin en face following decalcificationPA/pl PERFORMED.[facility], Department of Pathology, [address] [place] [address], [facility], Department of [facility]ology, [address] [place] [address], [facility], [facility], [address] [place] [address], XJMF-GLUCOSE [id number] 08:12:00 Test Item Value Reference Range Interpretation Comments POC-GLUCOSE METER 123 mg/dL 70-110 H : TESTED A T [facility] 6720 (BEAKER) (test code = [place], 1538) 10551: Admissions Dean/Techni estefani ID = [id number] for Izaiah Barber BASIC METABOLIC [id number] 06:52:00 Test Item Value Reference Range Interpretation [...] S NOT APPLICABLE FOR DIALYSIS PATIEN TS. Admissions Dean ID - ABSSEM [id number] 06:51:00 Test Item Value Reference Range Interpretation Comments PHOSPHORUS (BEAKER) (test code = 6.3 mg/dL 2.3-4.7 H 604) Admissions Dean ID - BASSEM [id number] 06:51:00 Test Item Value Reference Range Interpretation Comments MAGNESIUM (BEAKER) (test code = 2.5 mg/dL 1.6-2.6 627) Admissions Dean ID Benjie LUEVANO WCBC W/PLT COUNT & AUTO [id number] 06:32:00 Test Item Value Reference Range Interpretation [...] (BEAKER) (test code = 2801) VANCOMYCIN LEVEL, [id number] 06:10:00 Test Item Value Reference Range Interpretation Comments VANCOMYCIN RANDOM (BEAKER) (test 19.5 ug/mL code = 523) Reference Range: No NormalsOperator ID - DBPOCT-GLUCOSE [id number] 21:39:00 Test Item Value Reference Range Interpretation Comments POC-GLUCOSE METER 212 mg/dL 70-110 H : TESTED A T [facility] 6720 (BEAKER) (test code = [facility], 1538) 55158: Admissions Dean/Techni estefani ID = [id number] for EA NOEMI MIRANDA POCT-GLUCOSE [id number] 17:03:00 Test Item Value Reference Range Interpretation Comments POC-GLUCOSE METER 192 mg/dL 70-110 H : TESTED A T [facility] 6720 (BEAKER) (test code = [facility], 1538) 51807: Admissions Dean/Techni estefani ID = [id number] for HU NTER, HIWITHA POCT-GLUCOSE [id number] 12:20:00 Test Item Value Reference Range Interpretation Comments POC-GLUCOSE METER 191 mg/dL 70-110 H : TESTED A T [facility] 6720 (BEAKER) (test code = [facility], 1538) 46758: Admissions Dean/Techni estefani ID = [id number] for CLAUDIA FONTANA SURGICALLY OBTAINED CULTURE + GRAM [id number] 11:27:00 Test Item Value Reference Range Interpretation Comments CULTURE (BEAKER) (test code No growth = 1095) GRAM STAIN RESULT (BEAKER) 3+ WBCs (test code = 1123) GRAM STAIN RESULT (BEAKER) No organisms seen (test code = 45419) SPIN/CONCENTRATION [id number] 08:46:00 Test Item Value Reference Range Interpretation Comments CONCENTRATION CHARGED (BEAKER) (test Done code = 2657) POCT-GLUCOSE [id number] 08:19:00 Test Item Value Reference Range Interpretation Comments POC-GLUCOSE METER 134 mg/dL 70-110 H : TESTED A T [facility] 6720 (BEAKER) (test code = [facility], 1538) 48404: Admissions Dean/Techni estefani ID = [id number] for HU NTER, HIWITHA BASIC METABOLIC [id number] 04:44:00 Test Item Value Reference Range Interpretation [...] S NOT APPLICABLE FOR DIALYSIS PATIEN TS. Admissions Dean ID - JAQUELINE [id number] 03:56:00 Test Item Value Reference Range Interpretation Comments PHOSPHORUS (BEAKER) (test code = 6.2 mg/dL 2.3-4.7 H 604) Admissions Dean ID - JAQUELINE [id number] 03:56:00 Test Item Value Reference Range Interpretation Comments MAGNESIUM (BEAKER) (test code = 2.3 mg/dL 1.6-2.6 627) Admissions Dean ID - JAQUELINE MCBC W/PLT COUNT & AUTO [id number] 03:44:00 Test Item Value Reference Range Interpretation [...] PERCENT (BEAKER) (test code = 2801) POCT-GLUCOSE [id number] 20:47:00 Test Item Value Reference Range Interpretation Comments POC-GLUCOSE METER 234 mg/dL 70-110 H : TESTED A T [facility] 6720 (BEAKER) (test code = [place], 1538) 95240: Admissions Dean/Techni estefani ID = [id number] for NOEMI EDMOND POCT-GLUCOSE [id number] 17:12:00 Test Item Value Reference Range Interpretation Comments POC-GLUCOSE METER 192 mg/dL 70-110 H : TESTED A T [facility] 6720 (BEAKER) (test code = [facility], 1538) 56394: Admissions Dean/Techni estefani ID = [id number] for HU NTER, HIWITHA POCT-GLUCOSE [id number] 12:35:00 Test Item Value Reference Range Interpretation Comments POC-GLUCOSE METER 138 mg/dL 70-110 H : TESTED A T [facility] 6720 (BEAKER) (test code = [facility], 1538) 14491: Admissions Dean/Techni estefani ID = [id number] for HU NTER, HIWITHA POCT-GLUCOSE [id number] 10:12:00 Test Item Value Reference Range Interpretation Comments POC-GLUCOSE METER 101 mg/dL 70-110 : TESTED A T [facility] 6720 (BEAKER) (test code = [facility], 1538) 83721: Admissions Dean/Techni estefani ID = [id number] for Bassem Desai POCT-GLUCOSE [id number] 08:51:00 Test Item Value Reference Range Interpretation Comments POC-GLUCOSE METER 96 mg/dL 70-110 : TESTED A T [facility] 6720 (BEAKER) (test code = [facility], 1538) [address]: Admissions Dean/Techni estefani ID = [id number] for Alicia sBassem Hernandez BASIC METABOLIC [id number] 05:04:00 Test Item Value Reference Range Interpretation [...] S NOT APPLICABLE FOR DIALYSIS PATIEN TS. Admissions Dean ID - DANITZA LVANCOMYCIN LEVEL, [id number] 04:56:00 Test Item Value Reference Range Interpretation Comments VANCOMYCIN RANDOM (BEAKER) (test 18.7 ug/mL code = 523) Reference Range: No NormalsOperator ID - DANITZA [id number] 04:49:00 Test Item Value Reference Range Interpretation Comments PHOSPHORUS (BEAKER) (test code = 8.4 mg/dL 2.3-4.7 H 604) Admissions Dean ID - PIZAYRA [id number] 04:49:00 Test Item Value Reference Range Interpretation Comments MAGNESIUM (BEAKER) (test code = 2.5 mg/dL 1.6-2.6 627) Admissions Dean ID - DANITZA LCBC W/PLT COUNT & AUTO [id number] 04:22:00 Test Item Value Reference Range Interpretation [...] code = 2801) RAD, FOOT, 2 VIEWS, [id number] 22:40:00Reason for exam:->post op TMA rightFINAL REPORT [...] no radiopaque foreign body. Signed: Mirta Alex MDRjackelinort Verified Date/Time: 06/19/2019 22:40:02 Electro nically signed by: MIRTA ALEX M.D. on 06/19/2019 10:40 PMPOCT-GLUCOSE METER 2019-06-19 21:19:00 Test Item Value Reference Range Interpretation Comments POC-GLUCOSE METER 221 mg/dL 70-110 H : TESTED A T [facility] 6720 (BEAKER) (test code = [facility], 1538) [address]: Admissions Dean/Techni estefani ID = [id number] for KAVYA WHITMORE POCT-GLUCOSE [id number] 21:06:00 Test Item Value Reference Range Interpretation Comments POC-GLUCOSE METER 214 mg/dL 70-110 H : TESTED A T [facility] 6720 (BEAKER) (test code = [facility], [facility]) 41673: Admissions Dean/Techni estefani ID = [id number] for RENEE HN, BLESSING POCT-GLUCOSE [id number] 21:05:00 Test Item Value Reference Range Interpretation Comments POC-GLUCOSE METER 131 mg/dL 70-110 H : TESTED A T [facility] 6720 (BEAKER) (test code = [facility], [facility]) 31452: Admissions Dean/Techni estefani ID = [id number] for RENEE HN, BLESSING POCT-GLUCOSE [id number] 21:05:00 Test Item Value Reference Range Interpretation Comments POC-GLUCOSE METER 131 mg/dL 70-110 H : TESTED A T [facility] 6720 (BEAKER) (test code = [facility], [facility]) 92497: Admissions Dean/Techni estefani ID = [id number] for RENEE HN, BLESSING POCT-GLUCOSE [id number] 12:01:00 Test Item Value Reference Range Interpretation Comments POC-GLUCOSE METER 135 mg/dL 70-110 H : TESTED A T [facility] 6720 (BEAKER) (test code = [facility], [facility]) 29772: Admissions Dean/Techni estefani ID = [id number] for GABRIELA OLMSTEAD POCT-GLUCOSE [id number] 09:10:00 Test Item Value Reference Range Interpretation Comments POC-GLUCOSE METER 200 mg/dL 70-110 H : TESTED A T [facility] 6720 (BEAKER) (test code = [facility], [facility]) 02160: Admissions Dean/Techni estefani ID = [id number] for RENEE WHITE FRANCK CBC W/PLT COUNT & AUTO [id number] 05:34:00 Test Item Value Reference Range Interpretation [...] (BEAKER) (test code = 2801) BASIC METABOLIC [id number] 05:28:00 Test Item Value Reference Range Interpretation [...] S NOT APPLICABLE FOR DIALYSIS PATIEN TS. Admissions Dean ID - BASSEM [id number] 05:27:00 Test Item Value Reference Range Interpretation Comments PHOSPHORUS (BEAKER) (test code = 6.7 mg/dL 2.3-4.7 H 604) Admissions Dean ID - BASSEM [id number] 05:27:00 Test Item Value Reference Range Interpretation Comments MAGNESIUM (BEAKER) (test code = 2.3 mg/dL 1.6-2.6 627) Admissions Dean ID - BASSEM WVANCOMYCIN LEVEL, [id number] 05:25:00 Test Item Value Reference Range Interpretation Comments VANCOMYCIN RANDOM (BEAKER) (test 21.5 ug/mL code = 523) Reference Range: No NormalsOperator ID Benjie LUEVANO WPOCT-GLUCOSE [id number] 17:28:00 Test Item Value Reference Range Interpretation Comments POC-GLUCOSE METER 173 mg/dL 70-110 H : TESTED A T [facility] 6720 (BEAKER) (test code = [facility], 1538) 78076: Admissions Dean/Techni estefani ID = [id number] for OR DALE URRUTIA POCT-GLUCOSE [id number] 14:19:00 Test Item Value Reference Range Interpretation Comments POC-GLUCOSE METER 133 mg/dL 70-110 H : TESTED A T [facility] 6720 (BEAKER) (test code = [facility] [place] 1538) 73350: Admissions Dean/Techni estefani ID = [id number] for OR DALE URRUTIA POCT-GLUCOSE [id number] 10:35:00 Test Item Value Reference Range Interpretation Comments POC-GLUCOSE METER 119 mg/dL 70-110 H : TESTED A T [facility] 6720 (BEAKER) (test code = [facility], 1538) 86911: Admissions Dean/Techni estefani ID = [id number] for Po Sonya torres CBC W/PLT COUNT & AUTO [id number] 05:31:00 Test Item Value Reference Range Interpretation [...] (BEAKER) (test code = 2801) BASIC METABOLIC [id number] 05:17:00 Test Item Value Reference Range Interpretation [...] S NOT APPLICABLE FOR DIALYSIS PATIEN TS. Admissions Dean ID - JAQUELINE [id number] 05:16:00 Test Item Value Reference Range Interpretation Comments PHOSPHORUS (BEAKER) (test code = 7.5 mg/dL 2.3-4.7 H 604) Admissions Dean ID - JAQUELINE [id number] 05:16:00 Test Item Value Reference Range Interpretation Comments MAGNESIUM (BEAKER) (test code = 2.4 mg/dL 1.6-2.6 627) Admissions Dean ID - JAQUELINE MVANCOMYCIN LEVEL, [id number] 05:04:00 Test Item Value Reference Range Interpretation Comments VANCOMYCIN TROUGH (BEAKER) (test 25.9 ug/mL 10.0-20.0 H code = 522) Admissions Dean ID - JAQUELINE MPOCT-GLUCOSE [id number] 21:00:00 Test Item Value Reference Range Interpretation Comments POC-GLUCOSE METER 148 mg/dL 70-110 H : TESTED A T [facility] 6720 (BEAKER) (test code = [facility], 1538) 39467: Admissions Dean/Techni estefani ID = [id number] for RO BRADEN HOLLANDO POCT-GLUCOSE [id number] 19:14:00 Test Item Value Reference Range Interpretation Comments POC-GLUCOSE METER 137 mg/dL 70-110 H : TESTED A T [facility] 6720 (BEAKER) (test code = [facility], 1538) 40648: Admissions Dean/Techni estefani ID = [id number] for CAMILLE BETTS POCT-GLUCOSE [id number] 17:46:00 Test Item Value Reference Range Interpretation Comments POC-GLUCOSE METER 205 mg/dL 70-110 H : TESTED A T [facility] 6720 (BEAKER) (test code = [facility], 1538) 71717: Admissions Dean/Techni estefani ID = [id number] for CAMILLE BETTS POCT-GLUCOSE [id number] 17:05:00 Test Item Value Reference Range Interpretation Comments POC-GLUCOSE METER 197 mg/dL 70-110 H : TESTED A T [facility] 6720 (BEAKER) (test code = [facility], 1538) 66223: Admissions Dean/Techni estefani ID = [id number] for CAMILLE BETTS BASIC METABOLIC [id number] 05:57:00 Test Item Value Reference Range Interpretation [...] S NOT APPLICABLE FOR DIALYSIS PATIEN TS. Admissions Dean ID - DANITZA [id number] 05:54:00 Test Item Value Reference Range Interpretation Comments PHOSPHORUS (BEAKER) (test code = 6.2 mg/dL 2.3-4.7 H 604) Admissions Dean ID - DANITZA [id number] 05:54:00 Test Item Value Reference Range Interpretation Comments MAGNESIUM (BEAKER) (test code = 2.2 mg/dL 1.6-2.6 627) Admissions Dean ID - GARYZAYRA LCBC W/PLT COUNT & AUTO [id number] 05:44:00 Test Item Value Reference Range Interpretation [...] PERCENT (BEAKER) (test code = 2801) POCT-GLUCOSE [id number] 21:37:00 Test Item Value Reference Range Interpretation Comments POC-GLUCOSE METER 262 mg/dL 70-110 H : TESTED A T [facility] 6720 (BEAKER) (test code = [facility], 153) 40967: Admissions Dean/Techni estefani ID = [id number] for DA AUGUSTINE KAVYA POCT-GLUCOSE [id number] 16:44:00 Test Item Value Reference Range Interpretation Comments POC-GLUCOSE METER 203 mg/dL 70-110 H : TESTED A T [facility] 6720 (BEAKER) (test code = [facility], 153) 26695: Admissions Dean/Techni estefani ID = [id number] for ZA JOSR GIBBONSNDY POCT-GLUCOSE [id number] 12:05:00 Test Item Value Reference Range Interpretation Comments POC-GLUCOSE METER 233 mg/dL 70-110 H : TESTED A T [facility] 6720 (BEAKER) (test code = DASIA Garcia [place], 1538) 64753: Admissions Dean/Techni estefani ID = [id number] for ZOILA SILVA POCT-GLUCOSE [id number] 08:18:00 Test Item Value Reference Range Interpretation Comments POC-GLUCOSE METER 146 mg/dL 70-110 H : TESTED A T [facility] 6720 (BEAKER) (test code = DASIA Garcia [facility], 1538) 00162: Admissions Dean/Techni estefani ID = [id number] for ESTEFANY SILVAWITHA CBC W/PLT COUNT & AUTO [id number] 07:32:00 Test Item Value Reference Range Interpretation [...] CONCENTRATION Adequate (CELLAVISION)(BEAKER) (test code = 3438) Admissions Dean ID - Daily OverholtUser comments: Slide comments:BASIC [...] S NOT APPLICABLE FOR DIALYSIS PATIEN TS. Admissions Dean ID - JAQUELINE [id number] 06:29:00 Test Item Value Reference Range Interpretation Comments PHOSPHORUS (BEAKER) (test code = 4.9 mg/dL 2.3-4.7 H 604) Admissions Dean ID - JAQUELINE [id number] 06:29:00 Test Item Value Reference Range Interpretation Comments MAGNESIUM (BEAKER) (test code = 2.2 mg/dL 1.6-2.6 627) Admissions Dean ID - JAQUELINE MVANCOMYCIN LEVEL, [id number] 06:23:00 Test Item Value Reference Range Interpretation Comments VANCOMYCIN RANDOM (BEAKER) (test 31.1 ug/mL code = 523) Reference Range: No NormalsOperator ID - JAQUELINE MPOCT-GLUCOSE [id number] 21:18:00 Test Item Value Reference Range Interpretation Comments POC-GLUCOSE METER 233 mg/dL 70-110 H : TESTED A T [facility] 6720 (BEAKER) (test code = [facility], 1538) 06104: Admissions Dean/Techni estefani ID = [id number] for KAVYA WHITMORE POCT-GLUCOSE [id number] 17:24:00 Test Item Value Reference Range Interpretation Comments POC-GLUCOSE METER 252 mg/dL 70-110 H : TESTED A T [facility] 6720 (BEAKER) (test code = [facility], 1538) 04910: Admissions Dean/Techni estefani ID = [id number] for HU NTER, HIWITHA POCT-GLUCOSE [id number] 17:24:00 Test Item Value Reference Range Interpretation Comments POC-GLUCOSE METER 124 mg/dL 70-110 H : TESTED A T [facility] 6720 (BEAKER) (test code = [facility], 1538) 81378: Admissions Dean/Techni estefani ID = [id number] for HU NTER, HIWITHA [id number] 12:41:00 Test Item Value Reference Range Interpretation Comments ACTIVATED CLOTTING TIME 241 sec : 74 -137 seconds, (BEAKER) (test code = Baseli ne: TESTED AT 441) [facility] [facility] [place], 770 30: Admissions Dean/Techni estefani ID = [id number] for CRYSTAL SHAH HEPATITIS B SURFACE [id number] 04:57:00 Test Item Value Reference Range Interpretation Comments HEPATITIS B SURFACE ANTIGEN (2) Nonreactive Nonreactive (BEAKER) (test code = 2585) Admissions Dean ID - LMBASIC METABOLIC [id number] 04:38:00 Test Item Value Reference Range Interpretation [...] S NOT APPLICABLE FOR DIALYSIS PATIEN TS. Admissions Dean ID - BASESM [id number] 04:37:00 Test Item Value Reference Range Interpretation Comments PHOSPHORUS (BEAKER) (test code = 5.6 mg/dL 2.3-4.7 H 604) Admissions Dean ID - BASSEM [id number] 04:37:00 Test Item Value Reference Range Interpretation Comments MAGNESIUM (BEAKER) (test code = 2.2 mg/dL 1.6-2.6 627) Admissions Dean ID - BASSEM WCBC W/PLT COUNT & AUTO [id number] 04:34:00 Test Item Value Reference Range Interpretation [...] PERCENT (BEAKER) (test code = 2801) POCT-GLUCOSE [id number] 22:31:00 Test Item Value Reference Range Interpretation Comments POC-GLUCOSE METER 203 mg/dL 70-110 H : TESTED A T [facility] 6720 (BEAKER) (test code [facility], = 1538) 28646: Admissions Dean/Techni estefani ID = [id number] for Emma Leyva POCT-GLUCOSE [id number] 21:30:00 Test Item Value Reference Range Interpretation Comments POC-GLUCOSE METER 205 mg/dL 70-110 H : TESTED A T [facility] 6720 (BEAKER) (test code = [facility], 1538) 05522: Admissions Dean/Techni estefani ID = [id number] for ARLEN ADAN POCT-GLUCOSE [id number] 16:56:00 Test Item Value Reference Range Interpretation Comments POC-GLUCOSE METER 210 mg/dL 70-110 H : TESTED A T [facility] 6720 (BEAKER) (test code = [facility], 1538) 41023: Admissions Dean/Techni estefani ID = [id number] for MATEUS ROBLES RAD, FOOT, MIN 3 VIEWS, [id number] 15:36:00Reason for exam:->Right foot gangrene, 2nd toe [...] MDReport Verified Date/Time: 06/14/2019 15:36:18 Reading Location: [facility] B1 [id number] Ortho Consult Reading Room BASIC METABOLIC [id number] 15:34:00 Test Item Value Reference Range Interpretation [...] S NOT APPLICABLE FOR DIALYSIS PATIEN TS. Admissions Dean ID - [id number] 15:33:00 Test Item Value Reference Range Interpretation Comments PHOSPHORUS (BEAKER) (test code = 4.8 mg/dL 2.3-4.7 H 604) Admissions Dean ID - [id number] 15:33:00 Test Item Value Reference Range Interpretation Comments MAGNESIUM (BEAKER) (test code = 2.2 mg/dL 1.6-2.6 627) Admissions Dean ID - BSCBC W/PLT COUNT & AUTO [id number] 15:20:00 Test Item Value Reference Range Interpretation [...] PERCENT (BEAKER) (test code = 2801) POCT-GLUCOSE [id number] 12:22:00 Test Item Value Reference Range Interpretation Comments POC-GLUCOSE METER 242 mg/dL 70-110 H : TESTED A T [facility] 6720 (BEAKER) (test code = [facility], 1538) 90226: Admissions Dean/Techni estefani ID = [id number] for MAETUS ROBLES POCT-GLUCOSE [id number] 12:16:00 Test Item Value Reference Range Interpretation Comments POC-GLUCOSE METER 206 mg/dL 70-110 H : TESTED A T [facility] 6720 ([employer]) (test code = [facility], 1538) 76341: Admissions Dean/Techni estefani ID = [id number] for MATEUS ROBLES
[2021-07-15 16:34] LABS: Absolute Lymphocytes (CBC) 0.6 K/uL (0.7-4.9); Hematocrit 30.3 % (39.6-49.0); Lymphocytes % 7.7 % (15.3-44.8); MPV 7.5 fL (7.6-11.3); RBC Red Blood Cell Count 3.46 M/uL (4.33-5.43)
[2021-07-15] MEDS ORDERED: ONDANSETRON 4 MG/2 ML VIAL ONE (16:49)
--- NOTE | 2021-07-15 16:55 | RAD REPORT ---
EXAM DESCRIPTION: CT - Head Brain Wo Cont - 07/15/2021 4:37 pm CLINICAL HISTORY: Syncope COMPARISON: 2019 TECHNIQUE: Computed axial tomography of the head was obtained. IV contrast was not requested. All CT scans are performed using dose optimization technique as appropriate and may include automated exposure control or mA/KV adjustment according to patient size. FINDINGS: An intracranial bleed is not seen . The ventricles are normal in caliber. No extra-axial fluid collection is noted. Mild low-density areas within periventricular, deep and subcortical white matter likely represent isc hemic changes secondary to small vessel disease. Fluid within the sinuses/ mastoids is not seen. IMPRESSION: No acute intracranial abnormality is seen. If patient's symptoms persist MRI of the bra in would be recommended.
[2021-07-15 16:59] LABS: Magnesium 2.3 mg/dL (1.8-2.4); Potassium 4.5 mmol/L (3.5-5.1); Troponin High Sensitivity 32.5 pg/mL (<58.9)
--- NOTE | 2021-07-15 17:41 | RAD REPORT ---
EXAM DESCRIPTION: Alex Single View07/15/2021 5:34 pm CLINICAL HISTORY: Syncope COMPARISON: none FINDINGS: The lungs appear clear of acute infiltrate. The heart is mildly enlarged. Central venous catheter in place
--- NOTE | 2021-07-15 17:51 | RAD REPORT ---
EXAM DESCRIPTION: USCarotid Artery Bilateral07/15/2021 5:41 pm CLINICAL HISTORY: syncope COMPARISON: None FINDINGS: The velocity of the right internal carotid artery equals 92 cm/sec. The right ICA/CCA rati o 1.2 The velocity of the left internal carotid artery equals 99 cm/sec. The left ICA/CCA ratio 1.5 Mild plaque is present within the carotid arteries. The vertebral arteries demonstrate antegrade flow IMPRESSION: Mild plaque within the carotid arteries without evidence of a hemodynamically significan t stenosis NASCET criteria used. Mild 0-49% stenosis Moderate 50-69% stenosis Severe 70-99% stenosis
--- NOTE | 2021-07-15 17:56 | EDPHYS ---
Physician Documentation [facility] Name: Dayton Grijalva Age: 60 yrs Sex: Male : 1960 Arrival Date: 07/15/2021 Time: 16:08 Bed 5 Private MD: ED Physician Richard Asif HPI: 07/15 16:45 This 60 yrs old Male presents to ER via EMS with complaints of Syncope. jr8 16:45 Onset: The symptoms/episode began/occurred acutely, today. Duration: This was a single jr8 episode. Associated signs and symptoms: The patient has no apparent associated signs or symptoms. Current symptoms: Currently, the patient is not experiencing any symptoms, the patient feels back to baseline, no decreased level of consciousness, no confusion, no dysphasia, no headache, no paralysis, no visual changes. The patient has experienced similar episodes in the past, a few times. The patient has been recently seen by a physician:. Patient brought in by EMS after having syncopal episode at dialysis. Physician on scene was concerned about syncope vs seizure. No history of this in the past but that this is now the third occurrence. Does not always occur at dialysis and that patients glucose and BP have been stable throughout those episodes. EMS called to bring patient to ED for formal evaluation at that time and admission . Historical: - Allergies: 16:23 No Known Allergies; ph - PMHx: 16:23 Diabetes - IDDM; HD-MWF; Hypertension; ph - PSHx: 16:23 open heart surgery; R foot partial amputation; ph - Immunization history:: Adult Immunizations unknown. - Social history:: Smoking status: Patient denies any tobacco usage or history of. ROS: 16:45 Eyes: Negative for injury, pain, redness, and discharge, ENT: Negative for injury, jr8 pain, and discharge, Neck: Negative for injury, pain, and swelling, Cardiovascular: Negative for chest pain, palpitations, and edema, Respiratory: Negative for shortness of breath, cough, wheezing, and pleuritic chest pain, Abdomen/GI: Negative for abdominal pain, nausea, vomiting, diarrhea, and constipation, Back: Negative for injury and pain, MS/Extremity: Negative for injury and deformity, Skin: Negative for injury, rash, and discoloration. 16:45 Neuro: Positive for seizure activity, syncope. Exam: 16:45 Constitutional: This is a well developed, well nourished patient who is awake, alert, jr8 and in no acute distress. Eyes: Pupils equal round and reactive to light, extra-ocular motions intact. Lids and lashes normal. Conjunctiva and sclera are non-icteric and not injected. Cornea within normal limits. Periorbital areas with no swelling, redness, or edema. Neck: Trachea midline, no thyromegaly or masses palpated, and no cervical lymphadenopathy. Supple, full range of motion without nuchal rigidity, or vertebral point tenderness. No Meningismus. Cardiovascular: Regular rate and rhythm with a normal S1 and S2. No gallops, murmurs, or rubs. Normal PMI, no JVD. No pulse deficits. Respiratory: Lungs have equal breath sounds bilaterally, clear to auscultation and percussion. No rales, rhonchi or wheezes noted. No increased work of breathing, no retractions or nasal flaring. Abdomen/GI: Soft, non-tender, with normal bowel sounds. No distension or tympany. No guarding or rebound. No evidence of tenderness throughout. 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 Normal color with no rashes, no lesions, and no evidence of cellulitis. MS/ Extremity: Pulses equal, no cyanosis. Neurovascular intact. Full, normal range of motion. 16:45 Neuro: Orientation: to person, place \\T\\ time. Mentation: is normal, Memory: is normal, Cranial nerves: CN I not tested, CN II- XII are normal as tested, extraocular movements are intact, Facial palsy and sensory deficits are absent. Nystagmus is absent. Cerebellar function: normal finger to nose testing, Motor: moves all fours, Sensation: no obvious gross deficits, seizure activity, is not displayed by the patient, Abnormal movements: there are no abnormal movements. Vital Signs: 16:20 BP 130 / 63; Pulse 71; Resp 18; Temp 97.7; Pulse Ox 98% on R/A; Weight 91 kg; Pain 0/10;ph 17:26 BP 132 / 72; Pulse 72; Resp 18 S; Pulse Ox 98% on R/A; jd3 18:28 BP 168 / 72; Pulse 62; Resp 18 S; Pulse Ox 100% on R/A; jd3 19:30 BP 137 / 43; Pulse 62; Resp 16; Pulse Ox 99% on R/A; jb4 20:00 BP 178 / 73; Pulse 59; Resp 15; Pulse Ox 100% on R/A; jb4 21:00 BP 188 / 70; Pulse 68; Resp 17; Pulse Ox 99% on R/A; jb4 MDM: 16:08 Patient medically screened. [facility] 17:55 Data reviewed: vital signs, nurses notes, lab test result(s), EKG, radiologic studies, [facility] CT scan, plain films. Data interpreted: Pulse oximetry: on room air is 98 %. Interpretation: normal. Counseling: I had a detailed discussion with the patient and/or guardian regarding: the historical points, exam findings, and any diagnostic results supporting the discharge/admit diagnosis, lab results, radiology results, the need for further work-up and treatment in the hospital. 07/15 16:19 Order name: Basic Metabolic Panel; Complete Time: 17:19 [facility] 07/15 16:19 Order name: CBC with Diff; Complete Time: 16:48 07/15 16:19 Order name: Magnesium; Complete Time: 17:19 07/15 16:19 Order name: NT PRO-BNP; Complete Time: 17:19 [facility] 07/15 16:19 Order name: Troponin HS; Complete Time: 17:19 07/15 18:45 Order name: COVID-19 SARS RT PCR (Document "Date of Onset" if Symptomatic); Complete la1 Time: 20:40 07/15 16:19 Order name: XRAY Chest (1 view); Complete Time: 17:47 07/15 16:19 Order name: EKG; Complete Time: 16:19 07/15 16:19 Order name: Cardiac monitoring; Complete Time: 16:21 07/15 16:19 Order name: EKG - Nurse/Tech; Complete Time: 16:53 07/15 16:19 Order name: IV Saline Lock; Complete Time: 16:30 07/15 16:20 Order name: CT Head Brain wo Cont; Complete Time: 16:56 07/15 16:20 Order name: US Carotid Artery Bilateral; Complete Time: 17:55 07/15 16:19 Order name: Labs collected and sent; Complete Time: 16:30 8 07/15 16:19 Order name: O2 Per Protocol; Complete Time: 16:21 jr8 07/15 16:19 Order name: O2 Sat Monitoring; Complete Time: 16:21 jr8 Administered Medications: 16:53 Drug: Zofran (Ondansetron) 4 mg Route: IVP; Site: right antecubital; jd3 Disposition: 21:40 Co-signature as Attending Physician, Richard BECERRA was immediately available on-site ms3 in the Emergency Department for consultation in the care of the patient. . Disposition Summary: 07/15/21 17:56 Hospitalization Ordered Hospitalization Status: Observation jr8 Provider: Malik Huynh 8 Location: Telemetry/MedSurg (observation) jr8 Condition: Stable jr8 Problem: new jr8 Symptoms: have improved jr8 Bed/Room Type: Standard [facility] Room Assignment: 217(07/15/21 21:04) cg Diagnosis - Syncope jr8 Forms: - Medication Reconciliation Form 8 - SBAR form jr8 Signatures: Dispatcher [employer] EDJames Mack PA PA jr8 Adán Wylie, DISPATCHER MAINTENANCE-C DISPATCHER MAINTENANCE-Cla1 Татьяна Easley RN RN Joya Mera RN RN cg Davies, Jonathon, RN RN jd3 Sims, Marcus, DO DO ms3 Corrections: (The following items were deleted from the chart) 21:04 17:56 jr8 cg
--- NOTE | 2021-07-15 17:56 | ER ---
Nurse's Notes [facility] Name: Dayton Grijalva Age: 60 yrs Sex: Male : 1960 Arrival Date: 07/15/2021 Time: 16:08 Bed 5 Private MD: Diagnosis: Syncope Presentation: 07/15 16:20 Chief complaint: EMS states: Pt from dialysis, had syncopal episodes x 2, VSS, BPs 150s ph systolic, HR sinus rhythm, pt has no complaints. Coronavirus screen: Vaccine status: Patient reports receiving the 2nd dose of the covid vaccine. Ebola Screen: No symptoms or risks identified at this time. Initial Sepsis Screen: Does the patient meet any 2 criteria? No. Patient's initial sepsis screen is negative. Does the patient have a suspected source of infection? No. Patient's initial sepsis screen is negative. Risk Assessment: Do you want to hurt yourself or someone else? Patient reports no desire to harm self or others. Onset of symptoms was July 15, 2021. 16:20 Method Of Arrival: EMS: [facility] 16:20 Acuity: SAMARA 3 ph Triage Assessment: 16:24 General: Appears in no apparent distress. comfortable, Behavior is calm, cooperative, ph appropriate for age, Denies fever. Pain: Denies pain. Neuro: Level of Consciousness is awake, alert, obeys commands, Oriented to person, place, time, situation, Reports a syncopal episode. Cardiovascular: Reports fatigue, lightheadedness, syncope, Denies chest pain, Capillary refill < 3 seconds in bilateral fingers Patient's skin is warm and dry. Rhythm is sinus rhythm. Cardiovascular: Dialysis shunt: in the anterior aspect of right upper chest. Respiratory: Airway is patent Respiratory effort is even, unlabored. GI: No signs and/or symptoms were reported involving the gastrointestinal system. Derm: Skin is intact, is healthy with good turgor, Skin is pink, warm \T\ dry. Musculoskeletal: Amputation of right foot. Circulation, motion, and sensation intact. Range of motion: intact in all extremities. Historical: - Allergies: 16:23 No Known Allergies; ph - PMHx: 16:23 Diabetes - IDDM; HD-MWF; Hypertension; ph - PSHx: 16:23 open heart surgery; R foot partial amputation; ph - Immunization history:: Adult Immunizations unknown. - Social history:: Smoking status: Patient denies any tobacco usage or history of. Screenin:26 Abuse screen: Denies threats or abuse. Denies injuries from another. Nutritional ph screening: No deficits noted. Tuberculosis screening: No symptoms or risk factors identified. Fall Risk None identified. Assessment: 16:29 General: Appears in no apparent distress. comfortable, Behavior is calm, cooperative, jd3 appropriate for age, Reports fatigue for >3 days. Pain: Denies pain. Neuro: Rios Agitation-Sedation Scale (RASS): 0 - Alert and Calm Level of Consciousness is awake, alert, obeys commands, Oriented to person, place, time, situation, Reports a syncopal episode. Cardiovascular: Denies chest pain, Capillary refill < 3 seconds Patient's skin is warm and dry. Rhythm is regular. Respiratory: Airway is patent Respiratory effort is even, unlabored, Respiratory pattern is regular, symmetrical, Denies cough, shortness of breath. GI: No signs and/or symptoms were reported involving the gastrointestinal system. Patient currently denies diarrhea, nausea, vomiting. : No signs and/or symptoms were reported regarding the genitourinary system. EENT: No signs and/or symptoms were reported regarding the EENT system. Derm: Skin is intact, Skin is dry, Skin is normal, Skin temperature is warm. Musculoskeletal: Circulation, motion, and sensation intact. Range of motion: intact in all extremities. 17:25 Reassessment: Patient appears in no apparent distress at this time. No changes from jd3 previously documented assessment. Patient and/or family updated on plan of care and expected duration. Pain level reassessed. Patient is alert, oriented x 3, equal unlabored respirations, skin warm/dry/pink. 18:28 Reassessment: Patient appears in no apparent distress at this time. Patient and/or jd3 family updated on plan of care and expected duration. Pain level reassessed. Patient is alert, oriented x 3, equal unlabored respirations, skin warm/dry/pink. awaiting admission. 19:15 Reassessment: Patient appears in no apparent distress at this time. Patient and/or jb4 family updated on plan of care and expected duration. Pain level reassessed. Patient is alert, oriented x 3, equal unlabored respirations, skin warm/dry/pink. 20:00 Reassessment: Patient appears in no apparent distress at this time. Patient and/or jb4 family updated on plan of care and expected duration. Pain level reassessed. Patient is alert, oriented x 3, equal unlabored respirations, skin warm/dry/pink. 21:00 Reassessment: Patient appears in no apparent distress at this time. Patient and/or jb4 family updated on plan of care and expected duration. Pain level reassessed. Patient is alert, oriented x 3, equal unlabored respirations, skin warm/dry/pink. 21:19 Reassessment: Attempted to call report. jb4 Vital Signs: 16:20 BP 130 / 63; Pulse 71; Resp 18; Temp 97.7; Pulse Ox 98% on R/A; Weight 91 kg; Pain 0/10;ph 17:26 BP 132 / 72; Pulse 72; Resp 18 S; Pulse Ox 98% on R/A; jd3 18:28 BP 168 / 72; Pulse 62; Resp 18 S; Pulse Ox 100% on R/A; jd3 19:30 BP 137 / 43; Pulse 62; Resp 16; Pulse Ox 99% on R/A; jb4 20:00 BP 178 / 73; Pulse 59; Resp 15; Pulse Ox 100% on R/A; jb4 21:00 BP 188 / 70; Pulse 68; Resp 17; Pulse Ox 99% on R/A; jb4 ED Course: 16:08 Patient arrived in ED. ss 16:08 James Cheatham PA is PHCP. jr8 16:08 Richard Asif DO is Attending Physician. jr8 16:21 Sulaiman Mcintyre, SUNITA is Primary Nurse. jd3 16:23 Triage completed. ph 16:25 Arm band placed on Patient placed in an exam room, on a stretcher, on oxygen, on ph panel monitor, on pulse oximetry. 16:26 Patient has correct armband on for positive identification. Placed in gown. Bed in low ph position. Call light in reach. Side rails up X2. Client placed on continuous cardiac and pulse oximetry monitoring. NIBP monitoring applied. 16:29 Inserted saline lock: 20 gauge in right antecubital area, using aseptic technique. jd3 Blood collected. 16:38 CT Head Brain wo Cont In Process Unspecified. EDMS 17:36 XRAY Chest (1 view) In Process Unspecified. EDMS 17:43 US Carotid Artery Bilateral In Process Unspecified. EDMS 17:56 Malik Huynh MD is Hospitalizing Provider. jr8 19:19 Primary Nurse role handed off by Sulaiman Mcintyre, RN mw2 21:18 No provider procedures requiring assistance completed. Patient admitted, IV remains in jb4 place. Administered Medications: 16:53 Drug: Zofran (Ondansetron) 4 mg Route: IVP; Site: right antecubital; jd3 Medication: 16:30 VIS not applicable for this client. jd3 Outcome: 17:56 Decision to Hospitalize by Provider. jr8 21:18 Condition: stable jb4 21:18 Discharge instructions given to patient, family, Instructed on the need for admit, Demonstrated understanding of instructions. 21:39 Admitted to Med/surg accompanied by tech, via stretcher, room 217, Report called to jb SUNITA Dietrich 21:39 Patient left the ED. [facility] Signatures: Dispatcher [employer] EDAlix Juares RN RN ss Roszak, Josh, PA PA jr8 Татьяна Easley RN RN Olu Madrid RN RN jb4 Sulaiman Mcintyre RN RN jd3 Westbrook, MyKena mw2 Corrections: (The following items were deleted from the chart) 18:33 18:28 Reassessment: Patient appears in no apparent distress at this time. Patient jd3 and/or family updated on plan of care and expected duration. Pain level reassessed. Patient is alert, oriented x 3, equal unlabored respirations, skin warm/dry/pink. jd3
--- NOTE | 2021-07-15 19:13 | P.HP ---
Certification for Inpatient Patient admitted to: Observation With expected LOS: <2 Midnights Patient will require the following post-hospital care: None Practitioner: I am a practitioner with admitting privileges, knowledge of patient current condition, hospital course, and medical plan of care. Services: Services provided to patient in accordance with Admission requirements found in Title 42 Section 412.3 of the Code of Federal Regulations Patient History Date of Service: 07/15/21 Reason for admission: Syncope History of Present Illness: 60-year-old male patient with history of ESRD on HD, diabetes mellitus type 2diet controlled, hypertension, CAD status post CABG presents the emergency department for suspected syncopal events. Son reports that patient has had a few syncopal events since the beginning of this week, he reports that after dialysis on Tuesday patient had a syncopal event once in the clinic and once again in the car on the way home he was evaluated by EMS and declined transportation to the hospital that time, patient had similar episode today after dialysis, staff at clinic reportedly noticed patient was stiffening up as well he was transferred to the emergency department for further evaluation for possible syncope versus seizure. Patient was evaluated the emergency department his labs were significant for demonstration of his end-stage renal disease as well as hyperglycemia and normocytic anemia he had carotid Doppler which was significant for mild plaque chest x-ray and CT of the head were without acute findings. ED provider wishes to admit under observation for further evaluation for syncope versus seizure. Allergies No Known Allergies Allergy (Verified 02/27/18 11:04) Home Medications: Amlodipine Besylate 10 mg PO DAILY 06/09/19 Furosemide 40 mg PO DAILY 06/09/19 Gabapentin 300 mg PO DAILY 06/09/19 Glipizide [Glipizide ER] 10 mg PO BID 06/09/19 Hydralazine [Apresoline] 25 mg PO BID 06/09/19 Spironolactone 25 mg PO DAILY 06/09/19 carvediloL [Carvedilol] 12.5 mg PO BID 06/09/19 - Past Medical/Surgical History Diabetic: Yes -: HTN -: DM, no insulin for over 1 month -: Neuropathy -: End-stage renal disease on dialysis -: Transmet amputation left foot 2009 -: Back I&D 2016 x2 -: Cardiac bypass Psychosocial/ Personal History: Lives at home with his - Family History Father -: Diabetes Mother -: GI disease Notes: Patient states that mother is in the hospital with a unknow GI problem Sister -: GI disease - Social History Smoking Status: Never smoker Alcohol use: No CD- Drugs: No Caffeine use: Yes Place of Residence: Home Review of Systems 10-point ROS is otherwise unremarkable Cardiovascular: Other (Syncope) Physical Examination - Physical Exam General: Alert, In no apparent distress, Oriented x3 HEENT: Atraumatic, PERRLA, Mucous membr. moist/pink, EOMI, Sclerae nonicteric Neck: Supple, 2+ carotid pulse no bruit, No LAD, Without JVD or thyroid abnormality Respiratory: Clear to auscultation bilaterally, Normal air movement Cardiovascular: Regular rate/rhythm, Normal S1 S2 Gastrointestinal: Normal bowel sounds, No tenderness Musculoskeletal: No tenderness Integumentary: No rashes Neurological: Normal gait, Normal speech, Normal strength at 5/5 x4 extr, Normal tone, Normal affect Lymphatics: No axilla or inguinal lymphadenopathy - Studies Laboratory Data (last 24 hrs) 07/15/21 16:27: WBC 7.4, Hgb 10.1 L, Hct 30.3 L, Plt Count 334 07/15/21 16:27: Sodium 136, Potassium 4.5, BUN 36 H, Creatinine 5.66 H*, Glucose 253 H, Magnesium 2.3 Assessment and Plan - Plan Assessment: Syncope versus seizure ESRD on HD Diabetes type 2diet controlled CAD status post CABG Hypertension Plan: Syncope versus seizure: Likely related to dialysis/fluctuations in blood pressure. Will obtain orthostatic vital signs carotid Doppler was negative we will also obtain echocardiogram. Case was discussed with neurology will obtain EEG as well to rule out seizure activity of the the "stiffening" could be related to hypoperfusion during syncopal event. Monitor on telemetry. Son reports these episodes started after they began using his newly placed central venous catheter, chest x-ray confirms placement. ESRD on HD: Nephrology consulted Diabetes type 2diet controlled: Blood sugar [id number] will obtain A1c, mild sliding scale insulin for the time being. CAD status post CABG: Continue home medications, monitor on telemetry Hypertension: Continue home meds DVT PPX: Heparin Code status: Full Discharge Plan: Home Plan to discharge in: 24 Hours - Advance Directives Does patient have a Living Will: No Does patient have a Durable POA for Healthcare: No - Code Status/Comfort Care Code Status Assessed: Yes (Full code) Critical Care: No Time Spent Managing Pts Care (In Minutes): 55
[2021-07-15] MEDS: INSULIN -REGULAR HUMAN 50 UNIT/0.5 ML ML SQ SCH (22:06)
[2021-07-15] MEDS ORDERED: HYDRALAZINE HCL 20 MG/ML VIAL IV PRN (22:15)
[2021-07-15 22:23] VITALS: BMI 26.4
[2021-07-15] MEDS: HEPARIN 5000 UNIT/ML 1 ML VIAL SQ SCH (22:48)
[2021-07-15] MEDS ORDERED: ONDANSETRON 4 MG/2 ML VIAL IV PRN (23:00)
[2021-07-16 04:02] LABS: Absolute Lymphocytes (CBC) 1.3 K/uL (0.7-4.9); Hematocrit 29.3 % (39.6-49.0); Lymphocytes % 18.2 % (15.3-44.8); MPV 8.2 fL (7.6-11.3); RBC Red Blood Cell Count 3.29 M/uL (4.33-5.43)
[2021-07-16 04:29] LABS: Bilirubin Total 0.3 mg/dL (0.2-1.0); Potassium 5.2 mmol/L (3.5-5.1); Protein, Total 7.5 g/dL (6.4-8.2); Troponin High Sensitivity 26.3 pg/mL (<58.9)
[2021-07-16] MEDS: INSULIN -REGULAR HUMAN 50 UNIT/0.5 ML ML SQ SCH ×4 (07:30→20:56)
--- NOTE | 2021-07-16 07:45 | EKG ---
Test Date: 2021-07-15 Test Time: 16:52:39 Soap Drier Tender: SYL MEASUREMENT RESULTS: Intervals: Rate: 68 MI: 140 QRSD: 96 QT: 438 QTc: 465 Finley: P: 63 MI: 140 QRS: 25 T: 44 INTERPRETIVE STATEMENTS: Normal sinus rhythm Possible Left atrial enlargement Cannot rule out Anterior infarct, age undetermined Abnormal ECG Compared to ECG 11/05/2019 10:52:31 No significant changes Electronically Signed On 07-16-21 07:43:23 CDT by Eliot Aldridge
[2021-07-16] MEDS: CALCIUM ACETATE 667 MG TAB PO SCH ×3 (08:21→16:41)
[2021-07-16] MEDS: FERROUS SULFATE 325 MG TAB PO SCH (08:26)
[2021-07-16] MEDS: HEPARIN 5000 UNIT/ML 1 ML VIAL SQ SCH ×2 (08:27→21:00)
[2021-07-16] MEDS: lisinopriL 20 MG TAB PO SCH (08:27)
[2021-07-16] MEDS: GABAPENTIN 300 MG CAP PO SCH (08:27)
[2021-07-16] MEDS ORDERED: CALCIUM ACETATE 667 MG PO SCH (09:00)
[2021-07-16] MEDS ORDERED: carvediloL 25 MG TAB PO SCH (09:00)
--- NOTE | 2021-07-16 12:04 | RAD REPORT ---
EXAM DESCRIPTION: MRI - Brain Wo Cont - 07/16/2021 11:56 am CLINICAL HISTORY: Syncope vs Seizure COMPARISON: Head Brain Wo Cont dated 07/15/2021 TECHNIQUE: Sagittal T1-weighted images were obtained along with PD/heavily T2-weighted and T2-FLAIR images. Axial DWI and ADC mapping sequences were also obtained along with coronal heavily T2-weighted images were obtained. FINDINGS: No intracranial hemorrhage, mass or acute infarction. There is no edema or shift of midlin e structures. No extra-axial fluid collections. Signal voids are seen as a normal finding in the izzy r intracranial vessels. Mild chronic small vessel ischemic changes. Cavum septum pellucidum Mastoid air cells and paranasal sinuses are clear. IMPRESSION: No acute intracranial abnormality. Specifically, no evidence of acute infarct. Mild bump grader operator viet small vessel ischemic changes.
[2021-07-16] MEDS ORDERED: EPOETIN 4,000 UNIT/ML VIAL IV SCH (12:15)
--- NOTE | 2021-07-16 14:02 | ECHO ---
HEIGHT: 6 ft 2 in WEIGHT: 205 lb 11.2 oz DATE OF STUDY: 07/16/[address]: Adán Wylie NP 2-DIMENSIONAL: YES M.MODE: YES DOPPLER: YES COLOR FLOW: YES TDS: NO PORTABLE: YES DEFINITY: NO BUBBLE STUDY: NO DIAGNOSIS: SYNCOPE CARDIAC HISTORY: CATHERIZATION: YES SURGERY: YES PROSTHETIC VALVE: NO PACEMAKER: NO MEASUREMENTS (cm) DIASTOLIC (NORMALS) SYSTOLIC (NORMALS) IVSd 1.2 (0.6-1.2) LA Diam 4.3 (1.9-4.0) LVEF 63% LVIDd 4.5 (3.5-5.7) LVIDs 2.9 (2.0-3.5) %FS 34% LVPWd 1.4 (0.6-1.2) Ao Diam 3.0 (2.0-3.7) 2 DIMENSIONAL ASSESSMENT: RIGHT ATRIUM: NORMAL LEFT ATRIUM: NORMAL RIGHT VENTRICLE: NORMAL LEFT VENTRICLE: MILD LEFT VENTRICULAR HYPERTROPHY TRICUSPID VALVE: NORMAL MITRAL VALVE: NORMAL PULMONIC VALVE: NORMAL AORTIC VALVE: CALCIFIED, NO AORTIC STENOSIS PERICARDIAL EFFUSION: NONE AORTIC ROOT: NORMAL LEFT VENTRICULAR WALL MOTION: NORMAL. DOPPLER/COLOR FLOW: MILD TRICUSPID REGURGITATION. COMMENTS: NORMAL LEFT VENTRICULAR EJECTION FRACTION 60-65%. NORMAL WALL MOTION. AORTIC VALVE SCLEROSIS, NO AORTIC STENOSIS. MILD CONCENTRIC LEFT VENTRICULAR HYPERTROPHY. MILD TRICUSPID REGURGITATION. TECHNOLOGIST: PAOLA MOLINA
--- NOTE | 2021-07-16 17:12 | CON ---
Date of Consultation: 07/16/2021 Reason For Consultation: Elevated BUN and creatinine, electrolyte imbalance, end-stage renal disease. History Of Present Illness: This is a 60-year-old gentleman, well known to me from dialysis with significant past medical history of end-stage renal disease, on hemodialysis, Tuesday, Tuesday, Tuesday at [facility], diabetes complicated with neuropathy, retinopathy, legally blind, hypertension, CAD status post CABG, PAD status post MTA, the patient yesterday had dialysis. After dialysis, the patient had seizure episode, loss of conscious, continued for almost 1 minute with hyperflex of upper extremity without any hypoglycemia or hypotension resolved spontaneously, recovered. Then after 10 or 15 minutes, he has another episode. The patient has the same episode 3 days ago. The patient denied any recent change in his medication. Blood sugar has never been reported as hypoglycemia during the episode and the patient never had low blood pressure during the episode or before it. For that reason, the patient was referred to the ER and the patient was admitted. Allergies: NO KNOWN DRUG ALLERGIES. Home Medications: Include; 1. Amlodipine. 2. Lasix. 3. Gabapentin. 4. Glipizide. 5. Hydralazine. 6. Spironolactone. 7. Carvedilol. Past Medical History: Includes; 1. Hypertension. 2. Diabetes complicated with neuropathy, retinopathy. 3. End-stage renal disease, on hemodialysis, Tuesday, Tuesday, Tuesday at [facility]. 4. PAD, status post left MTA back in 2009. 5. CAD, status post CABG. Past Surgical History: Includes; 1. AV fistula placement. 2. I and D. 3. MTA back on the left in 2009. 4. CABG. Family History: Positive for diabetes and hypertension. Social History: Denied smoking, denied alcohol, denied drug abuse. Review of Systems: Head and Neck: No red eye. No ear pain. Legally blind. GI: No nausea. No vomiting. : No polyuria. No dysuria. No hematuria. 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 Respiratory: No shortness of breath. Cardiovascular: Has loss of conscious. Has syncope. Musculoskeletal: No joint pain. Neuro: Has loss of conscious, syncope, questionable seizure. Has neuropathy. Endocrine: No polydipsia. Skin: No rash. Physical Examination: General: When I saw the patient; the patient is lying in bed, not on any distress. Vital Signs: Blood pressure 119/56, pulse of 86, afebrile. Chest: Clear to auscultation. Heart: S1, S2. Regular. Abdomen: Soft, nontender. Extremity: Left MTA. Neurologic: Alert, oriented. No focality. Laboratory Data: WBC 7.1, H and H 9.6/29.3. Sodium 136, potassium 5.2, bicarb 24, BUN 48, creatinine 7, GFR of 8, calcium of 8. Albumin 3, corrected calcium 8.8. CT was negative. Current Medications: In the hospital include atorvastatin, carvedilol 25, hydralazine p.r.n., lisinopril 20, gabapentin, calcium acetate 3 tablets with each meal, Zofran. Assessment And Plan: 1. End-stage renal disease. We will maintain the patient on dialysis. We will arrange for dialysis tomorrow. 2. Hyperkalemia. The patient is going to be dialyzed on low-potassium bath. 3. Hypertension, controlled, optimal. We will try to utilize blood pressure to establish better volume control. We will avoid any low blood pressure. I am going to decrease his carvedilol to 12.5. 4. Anemia of chronic kidney disease. Resume KADI. 5. Secondary hyperparathyroidism, stable. 6. Diabetes as by primary. 7. Syncope, loss of consciousness with history of vasculopath. We will consult Neurology. Questionable of seizure. Carotid Doppler was no significant blockage. We will follow up with primary. Thank you, Dr. Huynh for allowing us to participate in the care of your patient. time spend exam the patient face to face , reviewing the data of lab and radiology , placeing the order , discussing with the patient and the nursing staff , discussing with other produce team member including hospitalist and neurology 65 min THALIA Voice ID: [id number] Report ID: [id number] NICOLE
--- NOTE | 2021-07-16 18:15 | P.PN ---
Date of Service: 07/16/21 Subjective: no acute events overnight, patient states he feels fine ROS: 10 point ROS as noted above, otherwise negative Physical exam GEN: Alert, oriented, NAD HEENT: Normal conjunctiva, sclera anicteric CV: Regular rate and rhythm, no edema Pulm: Non-labored respirations on room air ABD: Soft, nontender, nondistended Neuro: Normal speech, normal affect Problem List Syncope versus seizure ESRD on HD Diabetes type 2diet controlled CAD status post CABG Hypertension likely syncope / ?vasovagal reportedly no drop in BP during or before/after episodes witnessed at dialysis neuro consulted MRI, eeg, echo ordered for further evaluation nephrology consulted - managing HD, plan for tomorrow sliding scale insulin continue home meds monitor telemetry Code: full Home: ~1 day Time Spent Managing Pts Care (In Minutes): 35
[2021-07-16] MEDS: carvediloL 12.5 MG TAB PO SCH (20:59)
[2021-07-16] MEDS ORDERED: ATORVASTATIN 40 MG TAB PO SCH (21:00)
[2021-07-17 04:11] VITALS: O2SAT 99
[2021-07-17 05:48] LABS: Absolute Lymphocytes (CBC) 1.4 K/uL (0.7-4.9); Hematocrit 27.1 % (39.6-49.0); Lymphocytes % 18.2 % (15.3-44.8); RBC Red Blood Cell Count 3.09 M/uL (4.33-5.43)
[2021-07-17 06:08] LABS: Albumin 2.9 g/dL (3.4-5.0); Bilirubin Total 0.3 mg/dL (0.2-1.0); Protein, Total 7.2 g/dL (6.4-8.2)
[2021-07-17 06:15] LABS: Potassium 6.1 mmol/L (3.5-5.1)
[2021-07-17] MEDS: INSULIN -REGULAR HUMAN 50 UNIT/0.5 ML ML SQ SCH ×3 (07:30→16:30)
[2021-07-17] MEDS: FERROUS SULFATE 325 MG TAB PO SCH (08:34)
[2021-07-17] MEDS: lisinopriL 20 MG TAB PO SCH (08:35)
[2021-07-17] MEDS: carvediloL 12.5 MG TAB PO SCH (08:35)
[2021-07-17] MEDS: HEPARIN 5000 UNIT/ML 1 ML VIAL SQ SCH (08:36)
[2021-07-17] MEDS: GABAPENTIN 300 MG CAP PO SCH (08:37)
[2021-07-17 09:53] VITALS: TEMP 97.5
[2021-07-17] MEDS: CALCIUM ACETATE 667 MG TAB PO SCH (12:00)
--- NOTE | 2021-07-17 13:33 | P.PN ---
Subjective Date of Service: 07/17/21 Chief Complaint: Syncope Subjective: Other (Received HD today. No c/o headache, N/V/SOB.) Physical Examination - Vital Signs Temperature: 97.5 F Blood Pressure: 165/71 Pulse: 58 Respirations: 16 Pulse Ox (%): 96 - Physical Exam General: Other (appears chronically ill) HEENT: Atraumatic, Normocephalic Neck: Supple, JVD not distended Respiratory: Other (symmetric chest expansion) Cardiovascular: No rubs, No murmurs Gastrointestinal: No rebound, No guarding Musculoskeletal: No clubbing Integumentary: No warmth Neurological: Normal tone Urinary: Other (No bladder distention) External genitalia: Deferred Rectal: Deferred Assessment And Plan - Plan 1. End-stage renal disease. Received HD today. Renal diet. 2. Hyperkalemia. Correction via HD. 3. Hypertension. BP controlled. Cont current regimen 4. Anemia of chronic kidney disease. KADI. 5. Secondary hyperparathyroidism, stable. Recheck serum iPTH + 25OHD as outpt. 6. DM2. Mngt per primary team. 7. Syncope. Per Neurology & Cardiology.
--- NOTE | 2021-07-17 17:47 | P.DS ---
Admission Date: 07/15/21 Discharge Date: 07/17/21 Disposition: ROUTINE DISCHARGE Discharge Condition: GOOD Reason for Admission: Syncope Consultations: Neurology - Dr. Bobo Nephrology - Dr. Kelly Procedures: Problem List Syncopal episode, suspect orthostasis / autonomic dysfunction ESRD on HD Diabetes type 2diet controlled CAD status post CABG Hypertension Brief History of Present Illness: 60-year-old male patient with history of ESRD on HD, diabetes mellitus type 2diet controlled, hypertension, CAD status post CABG presents the emergency department for suspected syncopal events. Son reports that patient has had a few syncopal events since the beginning of this week, he reports that after dialysis on Tuesday patient had a syncopal event once in the clinic and once again in the car on the way home he was evaluated by EMS and declined transportation to the hospital that time, patient had similar episode today after dialysis, staff at clinic reportedly noticed patient was stiffening up as well he was transferred to the emergency department for further evaluation for possible syncope versus seizure. Patient was evaluated the emergency department his labs were significant for demonstration of his end-stage renal disease as well as hyperglycemia and normocytic anemia he had carotid Doppler which was significant for mild plaque chest x-ray and CT of the head were without acute findings. ED provider wishes to admit under observation for further evaluation for syncope versus seizure. Hospital Course: Patient was evaluated by chest x-ray, CT and MRi of head, echocardiogram, and EKG which were all negative for acute process. He was monitored on telemetry without any events. He underwent dialysis without any episodes and no arrhythmia. Neurology was consulted and did not feel this was a seizure. Concern for possible arrhythmia. His heart rate was noted to be in the 50-60s at times. His blood pressure was low-normal as well. His coreg dose was reduced to 12.5mg BID. Recommend follow up with Cardiology for possible event monitor / holter monitor to evaluate for an arrhythmia. Follow up with Dr. Bobo, Neurology, in ~3-4 weeks. If symptoms recur, may benefit from outpatient neuromonitoring study. Recommend compression stockings (thigh high), and abdominal binder Resumed dialysis as previously scheduled. Vital Signs/Physical Exam: Temp Pulse Resp BP Pulse Ox 97.5 F 79 16 116/54 L 100 07/17/21 16:00 07/17/21 16:00 07/17/21 16:00 07/17/21 16:00 07/17/21 16:00 Physical exam GEN: Alert, oriented, NAD HEENT: Normal conjunctiva, sclera anicteric CV: Regular rate and rhythm, no edema Pulm: Non-labored respirations on room air ABD: Soft, nontender, nondistended Neuro: Normal speech, normal affect Laboratory Data at Discharge: WBC 7.5 K/uL (4.3-10.9) 07/17/21 05:13 Hgb 9.2 g/dL (13.6-17.9) L 07/17/21 05:13 Hct 27.1 % (39.6-49.0) L 07/17/21 05:13 Plt Count 311 K/uL (152-406) 07/17/21 05:13 Sodium 135 mmol/L (136-145) L 07/17/21 05:13 Potassium 6.1 mmol/L (3.5-5.1) H* 07/17/21 05:13 BUN 68 mg/dL (7-18) H D 07/17/21 05:13 Creatinine 9.97 mg/dL (0.55-1.3) H* D 07/17/21 05:13 Glucose 103 mg/dL (74-106) 07/17/21 05:13 Magnesium 2.3 mg/dL (1.8-2.4) 07/15/21 16:27 Total Bilirubin 0.3 mg/dL (0.2-1.0) 07/17/21 05:13 AST 23 U/L (15-37) 07/17/21 05:13 ALT 17 U/L (12-78) 07/17/21 05:13 Alkaline Phosphatase 105 U/L (45-117) 07/17/21 05:13 Home Medications: Gabapentin 300 mg PO DAILY 06/09/19 Atorvastatin Calcium [Lipitor] 40 mg PO BEDTIME 07/15/21 Calcium Acetate 3 tab PO TID 07/15/21 Ferrous Sulfate [Iron] 325 mg PO DAILY 07/15/21 Lisinopril [Zestril] 20 mg PO DAILY 07/15/21 carvediloL [Coreg*] 12.5 mg PO BID 30 Days #60 tab 07/17/21 New Medications: carvediloL [Coreg*] 12.5 mg PO BID 30 Days #60 tab Followup: Silvestre Bobo MD [ASSOCIATE-ACTIVE - CAN ADMIT] - (Follow up in a month. call for appointment.) Tito Duval MD [Primary Care Provider] - Time spent managing pt's care (in minutes): 40
[2021-07-18 00:15] VITALS: BP 165/71
--- NOTE | 2021-07-20 08:32 | EEG ---
CHART: [id number] TEST ID#: [id number] DATE OF STUDY: 07-16-2021 THE EEG WAS RECORDED PORTABLE IN THE PATIENT'S ROOM ON A 17 CHANNEL MACHINE. ELECTRODES WERE APPLIED IN THE USUAL MANNER USING THE INTERNATIONAL 10-20 SYSTEM. THE WAKING BACKGROUND RHYTHM IN THIS RECORD CONSISTS OF FAIRLY WELL DEVELOPED AND FAIRLY WELL ORGANIZED WAVES OF 6.5-7 HZ., IN A WIDE DISTRIBUTION WHICH ATTENUATE NORMALLY WITH EYE OPENING. LOW-VOLTAGE 18-22 HZ ACTIVITY IS EXPRESSED IN THE FRONTAL REGIONS. THERE ARE NO FOCAL OR LATERALIZING FEATURES. NO EPILEPTIFORM ACTIVITY APPEARS. SLEEP DID NOT OCCUR. HYPERVENTILATION WAS NOT PERFORMED. PHOTIC STIMULATION PRODUCED NO DRIVING BILATERALLY. IMPRESSION: THIS IS AN ABNORMAL AWAKE ROUTINE EEG DUE TO A MILDLY SLOW POSTERIOR DOMINANT RHYTHM. THIS IS A NON-SPECIFIC FINDING INDICATING THE PRESENCE OF A MILD DIFFUSE DISTURBANCE IN CEREBRAL FUNCTION.
--- NOTE | 2021-07-20 12:33 | CON ---
Reason For Consultation: Consultation called in because of multiple syncopal episodes. History Of Present Illness: Mr. Grijalva is a 60-year-old patient with end-stage renal disease, on hemodialysis; diabetes mellitus type 2; hypertension; coronary artery disease, status post coronary artery bypass grafting, who has had multiple syncopal episodes in the setting of finishing dialysis and within perhaps 30 minutes within dialysis. On Tuesday this week, the patient finished dialysis and at the end apparently passed out and regained awareness after a short while. On the way home, he had another episode, and the Emergency Department medical services called, but the patient did not come by EMS at that point to the hospital. He had an additional episode then eventually came to the hospital and is evaluated. His head CT scan showed no acute ischemic or hemorrhagic change. Subsequent brain MRI without stroke, but only mild small vessel ischemic disease being identified. His echocardiogram showed ejection fraction 63% with aortic valve sclerosis, mild concentric left ventricular hypertrophy and mild tricuspid regurgitation. Carotid artery ultrasound showed mild plaque in the carotid arteries without evidence of hemodynamically significant stenosis. His electrocardiogram showed normal sinus rhythm with possible left atrial enlargement. His blood work revealed a creatinine of 6.09, glucose ranged from 86 to 148. Liver function studies show elevated alkaline phosphate at 121, otherwise unremarkable. COVID testing negative. The patient is in bed, does not have any additional syncopal episodes. Mild slurred speech and slow to respond, decreased verbal fluency reportedly he had at his baseline. Past Medical History: As noted. In addition, diabetic neuropathy. Past Surgical History: Transmetatarsal amputation of left foot 2009, incision and drainage x2 back, coronary artery bypass surgery, AV fistula for dialysis. Allergies: NO KNOWN DRUG ALLERGIES. Medications At Home: Amlodipine 10 mg a day, furosemide 40 mg daily, gabapentin 300 mg daily, glimepiride 10 mg twice daily. Family History: Diabetes in father. Gastrointestinal disease in mother and sister. Social History: Denies alcohol, tobacco, caffeinated beverages. Review of Systems: As noted. The patient had some difficulty with slurred speech, had syncopal episodes in the past usually around dialysis or having another episode when a port was placed. His brain MRI is negative acute ischemic or hemorrhagic stroke. Physical Examination: Vital Signs: Blood pressure 165/71, pulse 59, respiratory rate 16, temperature 98.2, O2 saturation 99% on room air. General: Mr. Grijalva is resting in bed. He is in no significant distress. HEENT: He is normocephalic and atraumatic. Sclerae anicteric. Oropharynx is moist. Neck: Supple. Chest: Clear. Heart: Regular. Extremities: Show no significant edema or cyanosis. Neurological: He is alert and oriented to situation, place, and person. Follows commands slowly. Cranial nerves show no focal deficits. Upper extremities works well. Mild stocking-glove loss, light touch, temperature. Coordination intact in the upper and lower extremities. Reflexes depressed in the upper and lower extremities. Assessment: Mr. Grijalva is a 60-year-old patient with possible vasovagal type syncope after dialysis, however, sudden change in electrolyte concentration potentially maybe a source for the syncopal episodes, although that is not there, appeared to follow dialysis. He does not have significant drop in his blood pressure at least when reported to explain syncope. Blood pressure lying 110/66, pulse 63 and sitting 147/67 and pulse 69, he seems asymptomatic at that point. His oxygen saturation did not explain syncopal episode. The EEG is pending. Plan: 1. We will follow up on EEG. 2. He may benefit from ambulatory EEG monitoring. 3. He may be discharged home and followup in Dr. Bobo's clinic in a month. KEVYN/JORGE Voice ID: [id number] Report ID: [id number] [id number]
== END 2021-07-17 17:10 | disposition home health service (06) ==
LOC: ER 16:06 → ERHOLD 19:00 → 2ND 21:21
PROVIDERS: ADMIT Hospitalist; ATTEND Hospitalist
DX: R55 Syncope and collapse (principal); I12.0 Hypertensive chronic kidney disease with stage 5 chronic kidney disease or end stage renal disease; E11.22 Type 2 diabetes mellitus with diabetic chronic kidney disease; E11.65 Type 2 diabetes mellitus with hyperglycemia; N18.6 End stage renal disease; D63.1 Anemia in chronic kidney disease; Z99.2 Dependence on renal dialysis; E87.5 Hyperkalemia; I25.10 Atherosclerotic heart disease of native coronary artery without angina pectoris; N25.81 Secondary hyperparathyroidism of renal origin; E11.40 Type 2 diabetes mellitus with diabetic neuropathy, unspecified; E11.319 Type 2 diabetes mellitus with unspecified diabetic retinopathy without macular edema; I73.9 Peripheral vascular disease, unspecified; H54.8 Legal blindness, as defined in USA; Z95.1 Presence of aortocoronary bypass graft; Z79.899 Other long term (current) drug therapy; Z20.822 Contact with and (suspected) exposure to COVID-19; Z83.3 Family history of diabetes mellitus; Z83.79 Family history of other diseases of the digestive system
CPT/HCPCS: 95816; 93005; 93306; 85025 ×3; 80048; 36415 ×2; 83735; 82947 ×8; 83036; 84484 ×2; 80053 ×2; 83880; 70450; 71045; 90935; 93880; 70551; 96374; 99285; U0003; J0360; J1644 ×6; Q5105; J2405; G0257; G0378 ×4

== ENCOUNTER 2021-10-21 12:22 | Observation (INO) | payer OTHER ==
--- OUTSIDE RECORDS SUMMARY | 2021-10-21 12:49 | XMS REPORT | Continuity of Care Document ---
:1960 Author Organization [facility] t Address [facility] [place] [address] Care Team Providers Name Role Phone Rose Duval MD Primary Care Physician Lupe Nowak Anavella Attending Clinician Unava ilable [id number] Attending Clinician Unavailable Rose Duval Attending Clinician Unavailable STAR CLOUD Attending Clinician Unavailable MARIO DRIVER Attending Clinician Unavailable JORGITO PADILLA Attending Clinician Unavailable Marj DORSEY, Olayinka Bean Attending Clinician Unavailable LYLE CANALES Attending Clinician Unavailable Oralia Valdes Attending Clinician Lyle Canales MD Attending Clinician STAR CLOUD Attending Clinician Unavailable [place] DPM Attending Clinician CLARK CASTAÑEDA Attending Clinician Unavailable DWAINE CROWDER Attending Clinician Unavailable DAV HERNANDEZ Attending Clinician Unavailable Clark Castañeda MD Attending Clinician GERARDO KIRBY Attending Clinician Unavailable Chioma Albarran V Attending Clinician Unavailable HAKEEM HAGAN Attending Clinician Unavailable John Sánchez Attending Clinician Unavailable KNOW, DOES_NOT Attending Clinician Unavailable NATASHA HINES Attending Clinician Unavailable CHIOMA ALBARRAN Attending Clinician Unavailable TOMASA HAGAN Attending Clinician Unavailable WILMER HOLLOWAY Attending Clinician Unavailable ABRAHAM MALAVE Attending Clinician Unavailable Michaela Nowak Anav Admitting Clinician Unavailable [id number] Admitting Clinician Unavailable STAR CLOUD Admitting Clinician Unavailable MARIO DRIVER Admitting Clinician Unavailable JORGITO PADILLA Admitting Clinician Unavailable LYLE CANALES Admitting Clinician Unavailable Lyle Canales MD Admitting Clinician DWAINE CROWDER Admitting Clinician Unavailable ELEUTERIO AGUILAR Admitting Clinician Unavailable ERIC PURI Admitting Clinician Unavailable NOHEMY MAYA Admitting Clinician Unavailable KNOW, DOES_NOT Admitting Clinician Unavailable ROSE DUVAL Admitting Clinician Unavailable SHARON ELIAS Admitting Clinician Unavailable TOMASA HAGAN Admitting Clinician Unavailable Payers Payer Name Policy Type Policy Number Effective Date Expiration Date S ource [facility] [id number] [facility] [id number] 2020 HMO 00:00:00 CDC REVIEW [id number] 2019 2020 00:00:00 00:00:00 [facility] MEDICARE O [id number] CIGNA MEDICARE - [id number] RNPO PCP MEDICARE PART A \\T\\ [id number] B - MEDICARE Problems Condition Condition Condition Status Onset Resolution Last Treating Co mments Source Name Details Category Date Date Treatment Clinician Date Elevated Elevated Disease Active Unive rs troponin troponin 8-15 ity of 00:00: [place] [facility] Arterioven Arterioven Disease Active [facility]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 5-31 [place] fistula fistula 00:00: of stenosis stenosis 00 Medici n (HCCode) (HCCode) e ESRD (end ESRD (end Disease Active [place] [facility] stage stage 5-23 [place] renal renal 00:00: of disease) disease) 00 Medici n (HCCode) (HCCode) e Essential Essential Disease Active 2020-03 [facility] hypertensi hypertensi 1-16 Co llege on on 00:00: of 00 Medicin e Hyperlipid Hyperlipid Disease Active 2020-03 [facility] mariah salazar 1-16 College 00:00: of 00 Medicin e Pressure Pressure Disease [place] ulcer of ulcer of 8-10 [facility] e right right 00:00: of heel, heel, 00 Medicin stage 3 stage 3 e Pressure Pressure Disease Active [facility] ulcer of ulcer of 8-10 Colleg e right right 00:00: of heel, heel, 00 Medicin stage 3 stage 3 e (HCCode) (HCCode) Status Status Disease Active [facility] post split post split 07-30 Co llege thickness thickness 00:00: of skin graft skin graft 00 Me dicin e Nonhealing Nonhealing Disease [facility]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 3-31 Co llege stump stump 00:00[facility] ([facility] 00 Medici n e Non-healin Non-healin Disease Active 2019-03 B mariah g wound of g wound of 0-01 Co llege lower lower 00:00: of extremity extremity 00 Medi greyson e Eschar of Eschar of Disease Active 2019-03 [facility] heel heel 0- College 00:00: of 00 Medicin e Wound Wound Disease Active 2019-03 [facility] eschar of eschar of 0-01 [facility] foot foot 00:00: of 00 Medicin e Post-opera Post-opera Disease Active [facility] tive state tive state 5-19 Co llege 00:00: of 00 Medicin e S/P S/P Disease Active [facility] transmetat transmetat 5-19 Co llege arsal arsal 00:00: of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 00 Me dicin of foot, of foot, e right right (HCCode) (HCCode) Type 2 Type 2 Disease Active [facility] diabetes diabetes 5-19 Colleg e mellitus mellitus 00:00: of with with 00 Medicin diabetic diabetic e peripheral peripheral angiopathy angiopathy and and gangrene, gangrene, without without long-term long-term current current use of use of insulin insulin (HCCode) (HCCode) Encounter Encounter Disease Active [facility] for post for post 5-19 Colleg e surgical surgical 00:00: of wound wound 00 Medicin check check e PAD PAD Disease Recurre [facility] (periphera (periphera nce 5-12 Co llege l artery l artery 00:00: of disease) disease) 00 Medici n (HCCode) (HCCode) e PAD PAD Disease Active [facility] (periphera (periphera 5-12 Co llege l [...] Drug 6-10 [facility] 00:[facility]: d nces [facility] [place] No Known DA Active [facility] Drug 6-10 [facility] NO KNOWN Drug Active Univers ALLERGIE Class ity of S [facility] NO KNOWN Allergy Active [facility] ALLERGIE S Social History Social Habit Start Date Stop Date Quantity Comments Source Exposure to 2021-10-09 2021-10-19 Not sure University [facility]-CoV-2 00:00:00 15:24:00 [facility] (event) Branch Alcohol intake 2021-09-13 2021-09-13 Ex-drinker [facility] Col lege of 00:00:00 00:00:00 (finding) Medicine Cigarette 2021-07-27 2021-07-27 [facility] College of pack-years 00:00:00 00:00:00 Medicine Tobacco use and 2021-07-27 2021-07-27 Smokeless tobacco [facility] College of exposure 00:00:00 00:00:00 non-user Medicine Sex Ass[birth year] At [birth year] Universit y of 00:00:00 00:00:00 [facility] Smoking Status Start Date Stop Date Source Tobacco smoking consumption Univ ersity of [facility] unknown Branch Never smoked tobacco [facility]ia e[facility] of Medicine Medications Ordered Filled Start Stop Current Ordering Indication Dosage Frequency Signature Comments Components Source Medication Medication Date Date Medication? Clinician (SIG) Name Name No known No No known Unive rs medications 8-15 medication it y of 17:10: s [address] No known No No known Unive rs medications 8-15 medication it y of 17:10: s [address] SENNA CO Yes by Ton 7-05 COMBINATIO [place] 16:12: N route. of 23 Medicin e Sevelamer Yes Take by [facility] Carbonate 7-05 mouth. [place] 800 MG TABS 16:12: of 23 Medicin e amlodipine Yes 10mg Take 10 mg [facility] (NORVASC) 7-05 by mouth Colleg e 10 MG 16:12: daily. of tablet 23 Medicin e carvedilol Yes 12.5mg Take 12.5 [facility] (COREG) 7-05 mg by [place] 12.5 MG 16:12: mouth 2 of tablet 23 times Medicin daily e (with meals). gabapentin Yes 300mg Take 300 [facility] (NEURONTIN) 7-05 mg by [place] 300 MG 16:12: mouth 3 of capsule 23 times Medicin daily. e ASPIRIN 81 Yes Take by [facility] OR 7-05 mouth. [place] 16:12: of 23 Medicin e Acetaminoph Yes Take by [place] darnell en 7-05 mouth [facility] (TYLENOL) 16:12: times of 325 MG CAPS 23 daily. Medici n e Docusate Yes Take by [facility] Sodium 100 7-05 mouth. [place] MG TABS 16:12: of 23 Medicin e Simethicone Yes Take by [place] darnell 80 MG TABS 7-05 mouth. [place] 16:12: of 23 Medicin e Glucagon 1 Yes Inject [facility] MG/0.2ML -05 into the [place] SOAJ 16:12: skin. of 23 Medicin e Glucose 15 Yes Take by [facility] g PACK 7-05 mouth. [place] 16:12: of 23 Medicin e insulin Yes Inject [facility] aspart 7-05 into the [place] (NOVOLOG) 16:12: skin 3 of 100 UNIT/ML 23 times Medicin injection daily e (before meals). atorvastati Yes 40mg Take 40 mg Ton n (LIPITOR) 7-05 by mouth [facility] 40 MG 16:12: daily. of tablet 23 Medicin e ferrous Yes 325mg Take 325 [facility] sulfate 325 7-05 mg by [place] (65 Fe) MG 16:12: mouth of tablet 23 daily. Medicin e insulin Yes Inject [facility] glargine 7-05 into the College (LANTUS) 16:12: skin of 100 UNIT/ML 23 nightly. Medi greyson injection e Epoetin Yes Inject as [facility] Bob-epbx 7-05 directed. Colle ge (RETACRIT) 16:12: of 3000 23 Medicin UNIT/ML e SOLN collagenase 2021- No [id number] 1{appli [facility] 250 UNIT/GM 08-04 06- cation} [facility] ointment 1 22:30: 10:29 of application 00 :00 Medicin e SENNA CO Yes by [facility] 08-04 COMBINATIO [place] 17:10: N route. of 41 Medicin e Sevelamer Yes Take by [facility] r Carbonate 08-04 mouth. [place] 800 MG TABS 17:10: of 41 Medicin e amlodipine Yes 10mg Take 10 mg [facility] (NORVASC) 31 by mouth Colleg e 10 MG 17:10: daily. of tablet 41 Medicin e carvedilol Yes 12.5mg Take 12.5 [facility] (COREG) 5-31 mg by [place] 12.5 MG 17:10: mouth 2 of tablet 41 times Medicin daily e (with meals). gabapentin Yes 300mg Take 300 [facility] (NEURONTIN) 5-31 mg by [place] 300 MG 17:10: mouth 3 of capsule 41 times Medicin daily. e ASPIRIN 81 Yes Take by [place] 08-04 mouth. [place] 17:10: of 41 Medicin e Acetaminoph Yes Take by [facility] en 08-04 mouth two [place] (TYLENOL) 17:10: times of 325 MG CAPS 41 daily. Medici n e Docusate 2022-0 Yes Take by [facility] Sodium 100 5- mouth. [place] MG TABS 17:10: of 41 Medicin e Simethicone Yes Take by [place] darnell 80 MG TABS 08-04 mouth. [place] 17:10: of 41 Medicin e Glucagon 1 Yes Inject [facility] MG/0.2ML 08-04 into the [place] SOAJ 17:10: skin. of 41 Medicin e Glucose 15 Yes Take by [facility] g PACK 08-04 mouth. College 17:10: of 41 Medicin e insulin Yes Inject [facility] aspart 08-04 into the [place] (NOVOLOG) 17:10: skin 3 of 100 UNIT/ML 41 times Medicin injection daily e (before meals). atorvastati Yes 40mg Take 40 mg Ton n (LIPITOR) 08-04 by mouth Alexia ege 40 MG 17:10: daily. of tablet 41 Medicin e ferrous Yes 325mg Take 325 [facility] sulfate 325 - mg by [place] (65 Fe) MG 17:10: mouth of tablet 41 daily. Medicin e insulin Yes Inject [facility] glargine 08-04 into the [place] (LANTUS) 17:10: skin of 100 UNIT/ML 41 nightly. Medi greyson injection e Epoetin Yes Inject as [facility] Bob-epbx 08-04 directed. [facility]le ge (RETACRIT) 17:10: of 3000 41 Medicin UNIT/ML e SOLN SENNA CO Yes by [facility]. of 41 Medicin e Sevelamer Yes Take by [place] Carbonate - mouth. [place] 800 MG TABS 17:10: of 41 Medicin e amlodipine Yes 10mg Take 10 mg [facility] (NORVASC) -31 by mouth Colleg e 10 MG 17:10: daily. of tablet 41 Medicin e carvedilol Yes 12.5mg Take 12.5 [facility] (COREG) 5-31 mg by [place] 12.5 MG 17:10: mouth 2 of tablet 41 times Medicin daily e (with meals). gabapentin Yes 300mg Take 300 [facility] (NEURONTIN) 5-31 mg by [place] 300 MG 17:10: mouth 3 of capsule 41 times Medicin daily. e ASPIRIN 81 Yes Take by [facility] OR 5-31 mouth. [place] 17:10: of 41 Medicin e Acetaminoph Yes Take by [place] darnell en 5-31 mouth two College (TYLENOL) 17:10: times of 325 MG CAPS 41 daily. Medici n e Docusate Yes Take by [facility] Sodium 100 5-31 mouth. [place] MG TABS 17:10: of 41 Medicin e Simethicone Yes Take by [place] darnell 80 MG TABS -31 mouth. [place] 17:10: of 41 Medicin e Glucagon 1 Yes Inject [facility] MG/0.2ML 08-04 into the [place] SOAJ 17:10: skin. of 41 Medicin e Glucose 15 Yes Take by [facility] g PACK - mouth. [place] 17:10: of 41 Medicin e insulin Yes Inject [facility] aspart 08-04 into the [place] (NOVOLOG) 17:10: skin 3 of 100 UNIT/ML 41 times Medicin injection daily e (before meals). atorvastati Yes 40mg Take 40 mg [facility] n (LIPITOR) 08-04 by mouth [facility] 40 MG 17:10: daily. of tablet 41 Medicin e ferrous Yes 325mg Take 325 [facility] sulfate 325 5-31 mg by [place] (65 Fe) MG 17:10: mouth of tablet 41 daily. Medicin e insulin Yes Inject [facility] glargine 08-04 into the [place] (LANTUS) 17:10: skin of 100 UNIT/ML 41 nightly. Medi greyson injection e Epoetin Yes Inject as [facility] Bob-epbx - directed. [facility] ge (RETACRIT) 17:10: of 3000 41 Medicin UNIT/ML e SOLN senna-docus 0 2- No 1{tbl} Take 1 [facility] ate - 05-31 Tablet by [place] (PERICOLACE 17:06: 00:00 mouth of ) 8.6-50 MG 15 :00 daily. Medici n per tablet e senna-docus 2021-0 2021- No 1{tbl} Take 1 [facility] ate -04 08- Tablet by [place] (PERICOLACE 17:06: 00:00 mouth of ) 8.6-50 MG 15 :00 daily. Medici n per tablet e piperacilli 2021-0 2021- No 2.25g Inject [facility] n-tazobacta 08-04- 2.25 g [facility]le [facility] m (ZOSYN) 17:06: 00:00 into the of 2-0.25 09 :00 vein every Medicin GM/50ML 6 hours. e IVPB piperacilli 2021-0 2021- No 2.25g Inject [facility] n-tazobacta 08-04- 2.25 g Colle ge m (ZOSYN) 17:06: 00:00 into the of 2-0.25 09 :00 vein every Medicin GM/50ML 6 hours. e IVPB Melatonin 3 0 2021- No Take by [facility] MG TABS 08-04- mouth. [place] 17:06: 00:00 of 00 :00 Medicin e Melatonin 3 2021-0 2021- No Take by [facility] MG TABS 08-04- mouth. [place] 17:06: 00:00 of 00 :00 Medicin e Melatonin 3 0 Yes Take by [place] darnell MG TABS 5-17 mouth. [place] 10:42: of 01 Medicin e senna-docus 0 Yes 1{tbl} Take 1 [facility] ate 5-17 Tablet by [place] (PERICOLACE 10:42: mouth of ) 8.6-50 MG 01 daily. Medici n per tablet e piperacilli 0 Yes 2.25g Inject [place] darnell n-tazobacta 5-17 2.25 g Colleg e m (ZOSYN) 10:42: into the of 2-0.25 01 vein every Medicin GM/50ML 6 hours. e IVPB Sevelamer Yes Take by [facility] Carbonate 5-17 mouth. [place] 800 MG TABS 10:40: of 25 Medicin e amlodipine 0 Yes 10mg Take 10 mg [facility] (NORVASC) 5-17 by mouth Colleg e 10 MG 10:40: daily. of tablet 25 Medicin e carvedilol Yes 12.5mg Take 12.5 [facility] (COREG) 5-17 mg by College 12.5 MG 10:40: mouth 2 of tablet 25 times Medicin daily e (with meals). gabapentin Yes 300mg Take 300 [facility] (NEURONTIN) 5-17 mg by [place] 300 MG 10:40: mouth 3 of capsule 25 times Medicin daily. e ASPIRIN 81 Yes Take by [facility] OR 5-17 mouth. College 10:40: of 25 Medicin e Acetaminoph Yes Take by [place] darnell en 5-17 mouth two College (TYLENOL) 10:40: times of 325 MG CAPS 25 daily. Medici n e Docusate Yes Take by [facility] Sodium 100 5-17 mouth. [place] MG TABS 10:40: of 25 Medicin e Simethicone Yes Take by [place] darnell 80 MG TABS 5-17 mouth. [place] 10:40: of 25 Medicin e Glucagon 1 Yes Inject [facility] MG/0.2ML 5-17 into the [place] SOAJ 10:40: skin. of 25 Medicin e Glucose 15 Yes Take by [facility] g PACK -17 mouth. [place] 10:40: of 25 Medicin e insulin Yes Inject [facility] aspart 5-17 into the [place] (NOVOLOG) 10:40: skin 3 of 100 UNIT/ML 25 times Medicin injection daily e (before meals). atorvastati Yes 40mg Take 40 mg [facility] n (LIPITOR) 5-17 by mouth [facility] 40 MG 10:40: daily. of tablet 25 Medicin e ferrous Yes 325mg Take 325 [facility] sulfate 325 5-17 mg by [place] (65 Fe) MG 10:40: mouth of tablet 25 daily. Medicin e insulin Yes Inject [facility] glargine 5-17 into the [place] (LANTUS) 10:40: skin of 100 UNIT/ML 25 nightly. Medi greyson injection e Epoetin Yes Inject as [facility] Bob-epbx 5-17 directed. [facility] ge (RETACRIT) 10:40: of 3000 25 Medicin UNIT/ML e SOLN SENNA CO Yes by [facility] 5-17 [facility] 10:40: N route. of 25 Medicin e SENNA CO 0 Yes by [facility] 3-22 [facility] 16:08: N route. of 52 Medicin e Sevelamer Yes Take by [place] Carbonate 3-22 mouth. [place] 800 MG TABS 16:08: of 52 Medicin e amlodipine Yes 10mg Take 10 mg [facility] (NORVASC) -22 by mouth Colleg e 10 MG 16:08: daily. of tablet 52 Medicin e carvedilol Yes 12.5mg Take 12.5 [facility] (COREG) 3-22 mg by [place] 12.5 MG 16:08: mouth 2 of tablet 52 times Medicin daily e (with meals). gabapentin Yes 300mg Take 300 [facility] (NEURONTIN) 3-22 mg by [place] 300 MG 16:08: mouth 3 of capsule 52 times Medicin daily. e ASPIRIN 81 Yes Take by [facility] OR 3-22 mouth. [place] 16:08: of 52 Medicin e Melatonin 3 Yes Take by [place] [facility] MG TABS - mouth. [place] 16:08: of 52 Medicin e Acetaminoph Yes Take by [place] darnell en -22 mouth [facility] (TYLENOL) 16:08: times of 325 MG CAPS 52 daily. Medici n e Docusate Yes Take by [facility] Sodium 100 - mouth. [place] MG TABS 16:08: of 52 Medicin e senna-docus Yes 1{tbl} Take 1 [facility] ate -22 Tablet by [place] (PERICOLACE 16:08: mouth of ) 8.6-50 MG 52 daily. Medici n per tablet e Simethicone Yes Take by [place] 80 MG TABS -22 mouth. [place] 16:08: of 52 Medicin e Glucagon 1 Yes Inject [facility] MG/0.2ML - into the [place] SOA 16:08: skin. of 52 Medicin e Glucose 15 Yes Take by [facility] g PACK 05-26 mouth. [place] 16:08: of 52 Medicin e insulin Yes Inject [facility] aspart 05-26 into the [place] (NOVOLOG) 16:08: skin 3 of 100 UNIT/ML 52 times Medicin injection daily e (before meals). piperacilli Yes 2.25g Inject [place] n-tazobacta 05-26 2.25 g Colleg e m (ZOSYN) 16:08: into the of 2-0.25 52 vein every Medicin GM/50ML 6 hours. e IVPB atorvastati Yes 40mg Take 40 mg [facility] n (LIPITOR) 05-26 by mouth [facility] 40 MG 16:08: daily. of tablet 52 Medicin e ferrous Yes 325mg Take 325 [facility] sulfate 325 - mg by [place] (65 Fe) MG 16:08: mouth of tablet 52 daily. Medicin e insulin Yes Inject [facility] glargine 05-26 into the [place] (LANTUS) 16:08: skin of 100 UNIT/ML 52 nightly. Medi greyson injection e Epoetin Yes Inject as [facility] Bob-epbx 05-26 directed. Colle ge (RETACRIT) 16:08: of 3000 52 Medicin UNIT/ML e SOLN SENNA CO Yes by [facility] 05-05 [facility] 15:54: N route. of 43 Medicin e Sevelamer Yes Take by [place] Carbonate 05-05 mouth. [place] 800 MG TABS 15:54: of 43 Medicin e amlodipine Yes 10mg Take 10 mg [facility] (NORVASC) 3- by mouth Colleg e 10 MG 15:54: daily. of tablet 43 Medicin e carvedilol Yes 12.5mg Take 12.5 [facility] (COREG) 3- mg by [place] 12.5 MG 15:54: mouth 2 of tablet 43 times Medicin daily e (with meals). gabapentin Yes 300mg Take 300 [facility] (NEURONTIN) 3- mg by [place] 300 MG 15:54: mouth 3 of capsule 43 times Medicin daily. e ASPIRIN 81 Yes Take by [facility] OR 3- mouth. [place] 15:54: of 43 Medicin e Melatonin 3 Yes Take by [place] MG TABS - mouth. [place] 15:54: of 43 Medicin e Acetaminoph Yes Take by [facility] en - mouth [facility] (TYLENOL) 15:54: times of 325 MG CAPS 43 daily. Medici n e Docusate Yes Take by [facility] Sodium 100 - mouth. [place] MG TABS 15:54: of 43 Medicin e senna-docus Yes 1{tbl} Take 1 [facility] ate 05-05 Tablet by [place] (PERICOLACE 15:54: mouth of ) 8.6-50 MG 43 daily. Medici n per tablet e Simethicone Yes Take by [place]ell 80 MG TABS 05-05 mouth. [place] 15:54: of 43 Medicin e Glucagon 1 Yes Inject [facility] MG/0.2ML 05-05 into the [place] SOA 15:54: skin. of 43 Medicin e Glucose 15 Yes Take by [facility] g PACK 05-05 mouth. [place] 15:54: of 43 Medicin e insulin Yes Inject [facility] aspart 05-05 into the [place] (NOVOLOG) 15:54: skin 3 of 100 UNIT/ML 43 times Medicin injection daily e (before meals). piperacilli Yes 2.25g Inject [place] [facility] n-tazobacta 05-05 2.25 g [place] [facility] (ZOSYN) 15:54: into the of 2-0.25 43 vein every Medicin GM/50ML 6 hours. e IVPB atorvastati Yes 40mg Take 40 mg [facility] n (LIPITOR) 3- by mouth [facility]ia ege 40 MG 15:54: daily. of tablet 43 Medicin e ferrous Yes 325mg Take 325 [facility] sulfate 325 3- mg by [place] (65 Fe) MG 15:54: mouth of tablet 43 daily. Medicin e insulin Yes Inject [facility] glargine - into the [place] (LANTUS) 15:54: skin of 100 UNIT/ML 43 nightly. Medi greyson injection e Epoetin Yes Inject as [facility] Bob-epbx 3- directed. [facility] ge (RETACRIT) 15:54: of 3000 43 Medicin UNIT/ML e SOLN SENNA CO Yes by [facility] 2 COMBINATIO [place] 15:31: N route. of 43 Medicin e Sevelamer Yes Take by [facility] Carbonate 2- mouth. [place] 800 MG TABS 15:31: of 43 Medicin e amlodipine Yes 10mg Take 10 mg [facility] (NORVASC) 04-07 by mouth Colleg e 10 MG 15:31: daily. of tablet 43 Medicin e carvedilol Yes 12.5mg Take 12.5 [facility] (COREG) 2- mg by [place] 12.5 MG 15:31: mouth 2 of tablet 43 times Medicin daily e (with meals). gabapentin Yes 300mg Take 300 [facility] (NEURONTIN) 2 mg by [place] 300 MG 15:31: mouth 3 of capsule 43 times Medicin daily. e ASPIRIN 81 Yes Take by [facility] OR 2- mouth. [place] 15:31: of 43 Medicin e Melatonin 3 Yes Take by [place] MG TABS 2 mouth. [place] 15:31: of 43 Medicin e Acetaminoph Yes Take by [place] darnell en 2- mouth two [place] (TYLENOL) 15:31: times of 325 MG CAPS 43 daily. Medici n e Docusate Yes Take by [facility] Sodium 100 2- mouth. College MG TABS 15:31: of 43 Medicin e senna-docus Yes 1{tbl} Take 1 [facility] ate 2 Tablet by [place] (PERICOLACE 15:31: mouth of ) 8.6-50 MG 43 daily. Medici n per tablet e Simethicone Yes Take by [place] darnell 80 MG TABS 2- mouth. [place] 15:31: of 43 Medicin e Glucagon 1 Yes Inject [facility] MG/0.2ML 04-07 into the [place] SOA 15:31: skin. of 43 Medicin e Glucose 15 Yes Take by [facility] g PACK 04-07 mouth. [place] 15:31: of 43 Medicin e insulin Yes Inject [facility] aspart 2 into the [place] (NOVOLOG) 15:31: skin 3 of 100 UNIT/ML 43 times Medicin injection daily e (before meals). piperacilli Yes 2.25g Inject [place] n-tazobacta 04-07 2.25 g Colleg e m (ZOSYN) 15:31: into the of 20.25 43 vein every Medicin GM/50ML 6 hours. e IVPB atorvastati Yes 40mg Take 40 mg [facility] n (LIPITOR) 04-07 by mouth [facility] 40 MG 15:31: daily. of tablet 43 Medicin e ferrous Yes 325mg Take 325 [facility] sulfate 325 04-07 mg by [place] (65 Fe) MG 15:31: mouth of tablet 43 daily. Medicin e insulin Yes Inject [facility] glargine 04-07 into the [place] (LANTUS) 15:31: skin of 100 UNIT/ML 43 nightly. Medi greyson injection e Epoetin Yes Inject as [facility] Bob-epbx 04-07 directed. [facility] ge (RETACRIT) 15:31: of 3000 43 Medicin UNIT/ML e SOLN Dextran 2021- No Apply to [facility] 70-Hypromel 04-07 eye. [place] lose 15:31: 00:00 of (ARTIFICIAL 43 :00 Medicin TEARS) e 0.1-0.3 % SOLN dextrose 50 2021- No once. [facility] % injection 04-07 [place] 15:30: 00:00 of 37 :00 Medicin e SENNA CO 2020-03 Yes by Ton 04-05 COMBINAO [place] 13:24: N route. of 17 Medicin e Sevelamer 2020-03 Yes Take by [facility] Carbonate 04-05 mouth. [place] 800 MG TABS 13:24: of 17 Medicin e amlodipine 2020-03 Yes 10mg Take 10 mg [facility] (NORVASC) 30 by mouth [facility] 10 MG 13:24: daily. of tablet 17 Medicin e carvedilol 2020-03 Yes 12.5mg Take 12.5 [facility] (COREG) 1-30 mg by [place] 12.5 MG 13:24: mouth 2 of tablet 17 times Medicin daily e (with meals). gabapentin 2020-03 Yes 300mg Take 300 [facility] (NEURONTIN) 1-30 mg by [place] 300 MG 13:24: mouth 3 of capsule 17 times Medicin daily. e ASPIRIN 81 2020-03 Yes Take by [facility] OR 1-30 mouth. [place] 13:24: of 17 Medicin e Melatonin 3 2020-03 Yes Take by [place] [facility] MG TABS 1-30 mouth. [place] 13:24: of 17 Medicin e Acetaminoph 2020-03 Yes Take by [place] [facility] en 1-30 mouth two [place] (TYLENOL) 13:24: times of 325 MG CAPS 17 daily. Medici n e Docusate 2020-03 Yes Take by [facility] Sodium 100 1-30 mouth. [place] MG TABS 13:24: of 17 Medicin e senna-docus 2020-03 Yes 1{tbl} Take 1 [facility] ate 1-30 Tablet by [place] (PERICOLACE 13:24: mouth of ) 8.6-50 MG 17 daily. Medici n per tablet e Simethicone 2020-03 Yes Take by [place] [facility] 80 MG TABS 1-30 mouth. [place] 13:24: of 17 Medicin e Glucagon 1 2020-03 Yes Inject [facility] MG/0.2ML 30 into the [place] SOAJ 13:24: skin. of 17 Medicin e dextrose 50 2020-03 Yes once. [facility] % injection 04-05 [place] 13:24: of 17 Medicin e Glucose 15 2020-03 Yes Take by [facility] PACK 1-30 mouth. [place] 13:24: of 17 Medicin e insulin 2020-03 Yes Inject [facility] aspart 1-30 into the [place] (NOVOLOG) 13:24: skin 3 of 100 UNIT/ML 17 times Medicin injection daily e (before meals). Dextran 2020-03 Yes Apply to [facility] 70-Hypromel 1-30 eye. [place] lose 13:24: of (ARTIFICIAL 17 Medicin TEARS) e 0.1-0.3 % SOLN piperacilli 2020-03 Yes 2.25g Inject [place] [facility] n-tazobacta 1-30 2.25 g [facility] (ZOSYN) 13:24: into the of 2-0.25 17 vein every Medicin GM/50ML 6 hours. e IVPB atorvastati 2020-03 Yes 40mg Take 40 mg [facility] n (LIPITOR) 1-30 by mouth [facility] 40 MG 13:24: daily. of tablet 17 Medicin e ferrous 2020-03 Yes 325mg Take 325 [facility] sulfate 325 1-30 mg by [place] (65 Fe) MG 13:24: mouth of tablet 17 daily. Medicin e insulin 2020-03 Yes Inject [facility] glargine 1-30 into the [facility] (LANTUS) 13:24: skin of 100 UNIT/ML 17 nightly. Medi greyson injection e Epoetin 2020-03 Yes Inject as [facility] Bob-epbx 1-30 directed. [facility] (RETACRIT) 13:24: of 3000 17 Medicin UNIT/ML e SOLN SENNA CO 2020-03 Yes by [facility] -16 COMBINATIO [place] 11:05: N route. of 45 Medicin e Sevelamer 2020-03 Yes Take by [place] 1-16 mouth. [place] 800 MG TABS 11:05: of 45 Medicin e amlodipine 2020-03 Yes 10mg Take 10 mg [facility] (NORVASC) 1-16 by mouth [facility] 10 MG 11:05: daily. of tablet 45 Medicin e carvedilol 2020-03 Yes 12.5mg Take 12.5 [facility] (COREG) 1-16 mg by [place] 12.5 MG 11:05: mouth 2 of tablet 45 times Medicin daily e (with meals). gabapentin 2020-03 Yes 300mg Take 300 [facility] (NEURONTIN) 1-16 mg by [place] 300 MG 11:05: mouth 3 of capsule 45 times Medicin daily. e ASPIRIN 81 2020-03 Yes Take by [facility] OR 1-16 mouth. [place] 11:05: of 45 Medicin e Melatonin 3 2020-03 Yes Take by [place] [facility] MG TABS 1-16 mouth. [place] 11:05: of 45 Medicin e Acetaminoph 2020-03 Yes Take by [place] [facility] en 1-16 mouth two [facility] (TYLENOL) 11:05: times of 325 MG CAPS 45 daily. Medici n e Docusate 2020-03 Yes Take by [facility] Sodium 100 1-16 mouth. [place] MG TABS 11:05: of 45 Medicin e senna-docus 2020-03 Yes 1{tbl} Take 1 [facility] ate 1-16 Tablet by [place] (PERICOLACE 11:05: mouth of ) 8.6-50 MG 45 daily. Medici n per tablet e Simethicone 2020-03 Yes Take by [place] [facility] 80 MG TABS 1-16 mouth. [place] 11:05: of 45 Medicin e Glucagon 1 2020-03 Yes Inject [facility] MG/0.2ML 16 into the [place] SOAJ 11:05: skin. of 45 Medicin e dextrose 50 2020-03 Yes once. [facility] % injection 03-22 [place] 11:05: of 45 Medicin e Glucose 15 2020-03 Yes Take by [facility] PACK -16 mouth. [place] 11:05: of 45 Medicin e insulin 2020-03 Yes Inject [facility] aspart -16 into the [place] (NOVOLOG) 11:05: skin 3 of 100 UNIT/ML 45 times Medicin injection daily e (before meals). Dextran 2020-03 Yes Apply to [facility] 70-Hypromel 16 eye. [place] lose 11:05: of (ARTIFICIAL 45 Medicin TEARS) e 0.1-0.3 % SOLN piperacilli 2020-03 Yes 2.25g Inject [place] [facility] n-tazobacta -16 2.25 g [facility] (ZOSYN) 11:05: into the of 2-0.25 45 vein every Medicin GM/50ML 6 hours. e IVPB atorvastati 2020-03 Yes 40mg Take 40 mg [facility] n (LIPITOR) 1-16 by mouth [facility] 40 MG 11:05: daily. of tablet 45 Medicin e ferrous 2020-03 Yes 325mg Take 325 [facility] sulfate 325 1-16 mg by [place] (65 Fe) MG 11:05: mouth of tablet 45 daily. Medicin e insulin 2020-03 Yes Inject [facility] glargine 1-16 into the [place] (LANTUS) 11:05: skin of 100 UNIT/ML 45 nightly. Medi greyson injection e Epoetin 2020-03 Yes Inject as [facility] Bob-epbx 1-16 directed. [facility] ge (RETACRIT) 11:05: of 3000 45 Medicin UNIT/ML e SOLN SENNA CO 2020-03 Yes by [facility] 0-19 COMBINATIO [place] 15:27: N route. of 58 Medicin e Sevelamer 2020-03 Yes Take by [facility] Carbonate 0-19 mouth. [place] 800 MG TABS 15:27: of 58 Medicin e amlodipine 2020-03 Yes 10mg Take 10 mg [facility] (NORVASC) 0-19 by mouth [facility] 10 MG 15:27: daily. of tablet 58 Medicin e carvedilol 2020-03 Yes 12.5mg Take 12.5 [facility] (COREG) 0-19 mg by [place] 12.5 MG 15:27: mouth 2 of tablet 58 times Medicin daily e (with meals). gabapentin 2020-03 Yes 300mg Take 300 [facility] (NEURONTIN) 0-19 mg by [place] 300 MG 15:27: mouth 3 of capsule 58 times Medicin daily. e ASPIRIN 81 2020-03 Yes Take by [facility] OR 0-19 mouth. [place] 15:27: of 58 Medicin e Melatonin 3 2020-03 Yes Take by [place] MG TABS 0-19 mouth. [place] 15:27: of 58 Medicin e Acetaminoph 2020-03 Yes Take by [place] [facility] en 0-19 mouth two [place] (TYLENOL) 15:27: times of 325 MG CAPS 58 daily. Medici n e Docusate 2020-03 Yes Take by [facility] Sodium 100 0-19 mouth. [place] MG TABS 15:27: of 58 Medicin e senna-docus 2020-03 Yes 1{tbl} Take 1 [facility] ate 0-19 Tablet by [place] (SENOKOT S) 15:27: mouth of 8.6-50 MG 58 daily. Medicin per tablet e Simethicone 2020-03 Yes Take by [place] [facility] 80 MG TABS 0-19 mouth. [place] 15:27: of 58 Medicin e Glucagon 1 2020-03 Yes Inject [facility] MG/0.2ML 0-19 into the [place] SOA 15:27: skin. of 58 Medicin e dextrose 50 2020-03 Yes once. [facility] % injection 0-19 [place] 15:27: of 58 Medicin e Glucose 15 2020-03 Yes Take by [facility] PACK 0-19 mouth. [place] 15:27: of 58 Medicin e insulin 2020-03 Yes Inject [facility] aspart 0-19 into the [place] (NOVOLOG) 15:27: skin 3 of 100 UNIT/ML 58 times Medicin injection daily e (before meals). Dextran 2020-03 Yes Apply to [facility] 70-Hypromel 0-19 eye. [place] lose 15:27: of (ARTIFICIAL 58 Medicin TEARS) e 0.1-0.3 % SOLN piperacilli 2020-03 Yes 2.25g Inject [place] [facility] n-tazobacta 0-19 2.25 g [facility] (ZOSYN) 15:27: into the of 2-0.25 58 vein every Medicin GM/50ML 6 hours. e IVPB atorvastati 2020-03 Yes 40mg Take 40 mg [facility] n (LIPITOR) 0-19 by mouth [facility] 40 MG 15:27: daily. of tablet 58 Medicin e ferrous 2020-03 Yes 325mg Take 325 [facility] sulfate 325 0-19 mg by [place] (65 Fe) MG 15:27: mouth of tablet 58 daily. Medicin e insulin 2020-03 Yes Inject [facility] glargine 0-19 into the [place] (LANTUS) 15:27: skin of 100 UNIT/ML 58 nightly. Medi [facility] injection e Epoetin 2020-03 Yes Inject as [facility] Bob-epbx 0-19 directed. [facility] (RETACRIT) 15:27: of 3000 58 Medicin UNIT/ML e SOLN SENNA CO Yes by [facility] 9 COMBINATIO [place] 14:32: N route. of 28 Medicin e Sevelamer Yes Take by [place] Carbon[place] 9- mouth. [place] 800 MG TABS 14:32: of 28 Medicin e amlodipine Yes 10mg Take 10 mg [facility] (NORVASC) 9- by mouth [facility] 10 MG 14:32: daily. of tablet 28 Medicin e carvedilol Yes 12.5mg Take 12.5 [facility] (COREG) 9-21 mg by [place] 12.5 MG 14:32: mouth 2 of tablet 28 times Medicin daily e (with meals). gabapentin Yes 300mg Take 300 [facility] (NEURONTIN) 9- mg by [place] 300 MG 14:32: mouth 3 of capsule 28 times Medicin daily. e ASPIRIN 81 0 Yes Take by [facility] [place] 11-25 mouth. [place] 14:32: of 28 Medicin e Melatonin 3 Yes Take by [place] [facility] MG TABS 11-25 mouth. [place] 14:32: of 28 Medicin e Acetaminoph Yes Take by [place] [facility] en 11-25 mouth two [place] (TYLENOL) 14:32: times of 325 MG CAPS 28 daily. Medici n e Docusate Yes Take by [facility] Sodium 100 11-25 mouth. [place] MG TABS 14:32: of 28 Medicin e senna-docus Yes 1{tbl} Take 1 [facility] ate 11-25 Tablet by [place] (SENOKOT S) 14:32: mouth of 8.6-50 MG 28 daily. Medicin per tablet e Simethicone Yes Take by [place] [facility] 80 MG TABS 11-25 mouth. [place] 14:32: of 28 Medicin e Glucagon 1 Yes Inject [facility] MG/0.2ML 11-25 into the [place] SOAJ 14:32: skin. of 28 Medicin e dextrose 50 Yes once. [facility] % injection 11-25 [place] 14:32: of 28 Medicin e Glucose 15 Yes Take by [facility] PACK 11-25 mouth. [place] 14:32: of 28 Medicin e insulin Yes Inject [facility] aspart 11-25 into the [place] (NOVOLOG) 14:32: skin 3 of 100 UNIT/ML 28 times Medicin injection daily e (before meals). Dextran Yes Apply to [facility] 70-Hypromel 11-25 eye. [place] lose 14:32: of (ARTIFICIAL 28 Medicin TEARS) e 0.1-0.3 % SOLN piperacilli 0 Yes 2.25g Inject [place] [facility] n-tazobacta 11-25 2.25 g [place] [facility] (ZOSYN) 14:32: into the of 2-0.25 28 vein every Medicin GM/50ML 6 hours. e IVPB ferrous Yes 325mg Take 325 [facility] sulfate 325 - mg by [place] (65 Fe) MG 14:32: mouth of tablet 28 daily. Medicin e insulin Yes Inject [facility] glargine 11-25 into the [facility] (LANTUS) 14:32: skin of 100 UNIT/ML 28 nightly. Medi [facility]yson injection e Epoetin Yes Inject as [facility] Bob-epbx 11-25 directed. [facility] ge (RETACRIT) 14:32: of 3000 28 Medicin UNIT/ML e SOLN SENNA CO Yes by Ton 11-25 COMBINATIO [place] 14:32: N route. of 28 Medicin e Sevelamer Yes Take by [facility] Carbonate 11-25 mouth. [place] 800 MG TABS 14:32: of 28 Medicin e amlodipine Yes 10mg Take 10 mg [facility] (NORVASC) 11-25 by mouth [facility] 10 MG 14:32: daily. of tablet 28 Medicin e carvedilol Yes 12.5mg Take 12.5 [facility] (COREG) - mg by [place] 12.5 MG 14:32: mouth 2 of tablet 28 times Medicin daily e (with meals). gabapentin Yes 300mg Take 300 [facility] (NEURONTIN) - mg by [place] 300 MG 14:32: mouth 3 of capsule 28 times Medicin daily. e ASPIRIN 81 Yes Take by [facility] OR 11-25 mouth. [place] 14:32: of 28 Medicin e Melatonin 3 Yes Take by [place] MG TABS 11-25 mouth. [place] 14:32: of 28 Medicin e Acetaminoph Yes Take by [place] [facility] en - mouth two [facility] (TYLENOL) 14:32: times of 325 MG CAPS 28 daily. Medici n e Docusate Yes Take by [facility] Sodium 100 - mouth. [facility] MG TABS 14:32: of 28 Medicin e senna-docus Yes 1{tbl} Take 1 [facility] ate 11-25 Tablet by [place] (SENOKOT S) 14:32: mouth of 8.6-50 MG 28 daily. Medicin per tablet e Simethicone Yes Take by [place] [facility] 80 MG TABS 11-25 mouth. [facility] 14:32: of 28 Medicin e Glucagon 1 Yes Inject [facility] MG/0.2ML 11-25 into the [place] SOAJ 14:32: skin. of 28 Medicin e dextrose 50 Yes once. [facility] % injection 11-25 [facility] 14:32: of 28 Medicin e Glucose 15 Yes Take by [facility] g PACK 11-25 mouth. [place] 14:32: of 28 Medicin e insulin Yes Inject [facility] aspart 11-25 into the [place] (NOVOLOG) 14:32: skin 3 of 100 UNIT/ML 28 times Medicin injection daily e (before meals). Dextran Yes Apply to [facility] 70-Hypromel 11-25 eye. [place] lose 14:32: of (ARTIFICIAL 28 Medicin TEARS) e 0.1-0.3 % SOLN piperacilli Yes 2.25g Inject [place] [facility] n-tazobacta 11-25 2.25 g [facility] m (ZOSYN) 14:32: into the of 2-0.25 28 vein every Medicin GM/50ML 6 hours. e IVPB ferrous Yes 325mg Take 325 [facility] sulfate 325 - mg by [place] (65 Fe) MG 14:32: mouth of tablet 28 daily. Medicin e insulin Yes Inject [facility] glargine 11-25 into the [place] (LANTUS) 14:32: skin of 100 UNIT/ML 28 nightly. Medi [facility] injection e Epoetin Yes Inject as [facility] Bob-epbx 11-25 directed. [facility] (RETACRIT) 14:32: [...] SENNA CO Yes by Ton 8-24 COMBINATIO [place] 16:32: N route. of Medicin e Sevelamer Yes Take by [facility] Carbonate 8-24 mouth. [place] 800 MG TABS 16:32: of 09 Medicin e amlodipine Yes 10mg Take 10 mg [facility] (NORVASC) 8-24 by mouth [facility] 10 MG 16:32: daily. of tablet 09 Medicin e carvedilol Yes 12.5mg Take 12.5 [facility] (COREG) 8-24 mg by [place] 12.5 MG 16:32: mouth 2 of tablet 09 times Medicin daily e (with meals). gabapentin Yes 300mg Take 300 [facility] (NEURONTIN) 8-24 mg by [place] 300 MG 16:32: mouth 3 of capsule 09 times Medicin daily. e ASPIRIN 81 Yes Take by [facility] OR 8-24 mouth. [place] 16:32: of Medicin e Melatonin 3 Yes Take by [place] MG TABS 8-24 mouth. [place] 16:32: of Medicin e Acetaminoph Yes Take by [place] en 8-24 mouth [facility] (TYLENOL) 16:32: times of 325 MG CAPS 09 daily. Medici n e Docusate Yes Take by [facility] Sodium 100 8-24 mouth. [place] MG TABS 16:32: of Medicin e senna-docus Yes 1{tbl} Take 1 [facility] ate 8-24 Tablet by [place] (SENOKOT S) 16:32: mouth of 8.6-50 MG 09 daily. Medicin per tablet e Simethicone Yes Take by [place] [facility] 80 MG TABS 8-24 mouth. [place] 16:32: of 09 Medicin e Glucagon 1 Yes Inject [facility] MG/0.2ML 10-28 into the [facility] SOAJ 16:32: skin. of Medicin e dextrose 50 Yes once. [facility] % injection 10-28 [place] 16:32: of 09 Medicin e Glucose 15 Yes Take by [facility] g PACK 8-24 mouth. [place] 16:32: of 09 Medicin e insulin Yes Inject [facility] aspart 824 into the [place] (NOVOLOG) 16:32: skin 3 of 100 UNIT/ML 09 times Medicin injection daily e (before meals). Dextran Yes Apply to [facility] 70-Hypromel 10-28 eye. [place] lose 16:32: of (ARTIFICIAL 09 Medicin TEARS) e 0.1-0.3 % SOLN piperacilli Yes 2.25g Inject [place] [facility] n-tazobacta 10-28 2.25 g [facility] m (ZOSYN) 16:32: into the of 2-0.25 09 vein every Medicin GM/50ML 6 hours. e IVPB atorvastati Yes 40mg Take 40 mg [facility] n (LIPITOR) 824 by mouth [facility] 40 MG 16:32: daily. of tablet 09 Medicin e ferrous Yes 325mg Take 325 [facility] sulfate 325 8-24 mg by [place] (65 Fe) MG 16:32: mouth of tablet 09 daily. Medicin e insulin Yes Inject [facility] glargine 10-28 into the [place] (LANTUS) 16:32: skin of 100 UNIT/ML 09 nightly. Medi [facility]yson injection e Epoetin Yes Inject as [facility] Bob-epbx 24 directed. [facility] (RETACRIT) 16:32: of 3000 09 Medicin UNIT/ML e SOLN SENNA CO Yes by [facility] 8-10 [facility] 16:21: N route. of 31 Medicin e Sevelamer Yes Take by [facility] Carbonate 8-10 mouth. [place] 800 MG TABS 16:21: of 31 Medicin e amlodipine Yes 10mg Take 10 mg [facility] (NORVASC) 8-10 by mouth [facility] 10 MG 16:21: daily. of tablet 31 Medicin e carvedilol Yes 12.5mg Take 12.5 [facility] (COREG) 8-10 mg by [place] 12.5 MG 16:21: mouth 2 of tablet 31 times Medicin daily e (with meals). gabapentin 2021-0 Yes 300mg Take 300 [facility] (NEURONTIN) 8-10 mg by [place] 300 MG 16:21: mouth 3 of capsule 31 times Medicin daily. e ASPIRIN 81 Yes Take by [facility] OR 8-10 mouth. [place] 16:21: of 31 Medicin e Melatonin 3 0 Yes Take by [place] [facility] MG TABS 8-10 mouth. [place] 16:21: of 31 Medicin e Acetaminoph Yes Take by [place] [facility] en 8-10 mouth two [place] (TYLENOL) 16:21: times of 325 MG CAPS 31 daily. Medici n e Docusate Yes Take by Ton Sodium 100 8-10 mouth. [place] MG TABS 16:21: of 31 Medicin e senna-docus Yes 1{tbl} Take 1 [facility] ate 8-10 Tablet by [place] (SENOKOT S) 16:21: mouth of 8.6-50 MG 31 daily. Medicin per tablet e Simethicone Yes Take by [place] [facility] 80 MG TABS 8-10 mouth. [place] 16:21: of 31 Medicin e Glucagon 1 Yes Inject [facility] MG/0.2ML 8-10 into the [place] SOAJ 16:21: skin. of 31 Medicin e dextrose 50 Yes once. [facility] % injection 8-10 [place] 16:21: of 31 Medicin e Glucose 15 Yes Take by [facility] g PACK 8-10 mouth. [place] 16:21: of 31 Medicin e insulin Yes Inject [facility] aspart 8-10 into the [place] (NOVOLOG) 16:21: skin 3 of 100 UNIT/ML 31 times Medicin injection daily e (before meals). Dextran Yes Apply to [facility] 70-Hypromel 8-10 eye. [place] lose 16:21: of (ARTIFICIAL 31 Medicin TEARS) e 0.1-0.3 % SOLN piperacilli 0 Yes 2.25g Inject [place] [facility] n-tazobacta 8-10 2.25 g [facility] m (ZOSYN) 16:21: into the of 2-0.25 31 vein every Medicin GM/50ML 6 hours. e IVPB atorvastati 2021-0 Yes 40mg Take 40 mg [facility] n (LIPITOR) 8-10 by mouth [facility] 40 MG 16:21: daily. of tablet 31 Medicin e ferrous Yes 325mg Take 325 [facility] sulfate 325 8-10 mg by [place] (65 Fe) MG 16:21: mouth of tablet 31 daily. Medicin e insulin Yes Inject [facility] glargine 8-10 into the [facility] (LANTUS) 16:21: skin of 100 UNIT/ML 31 nightly. Medi [facility] injection e Epoetin Yes Inject as [facility] Bob-epbx 8-10 directed. [facility] ge (RETACRIT) 16:21: of 3000 31 Medicin UNIT/ML e SOLN SENNA CO Yes by [facility]. of 22 Medicin e Sevelamer Yes Take by [place] Carbonate 6- mouth. [place] 800 MG TABS 16:10: of 22 Medicin e amlodipine Yes 10mg Take 10 mg [facility] (NORVASC) 6-29 by mouth [facility] 10 MG 16:10: daily. of tablet 22 Medicin e carvedilol Yes 12.5mg Take 12.5 [facility] (COREG) 6-29 mg by [place] 12.5 MG 16:10: mouth 2 of tablet 22 times Medicin daily e (with meals). gabapentin Yes 300mg Take 300 [facility] (NEURONTIN) 6-29 mg by [place] 300 MG 16:10: mouth 3 of capsule 22 times Medicin daily. e ASPIRIN 81 Yes Take by [facility] OR - mouth. [place] 16:10: of 22 Medicin e Melatonin 3 Yes Take by [place] MG TABS - mouth. [place] 16:10: of 22 Medicin e Acetaminoph Yes Take by [place] [facility] en - mouth two [facility] (TYLENOL) 16:10: times of 325 MG CAPS 22 daily. Medici n e Docusate Yes Take by [facility] Sodium 100 6- mouth. [facility] MG TABS 16:10: of 22 Medicin e senna-docus Yes 1{tbl} Take 1 [facility] ate 6-29 Tablet by [place] (SENOKOT S) 16:10: mouth of 8.6-50 MG 22 daily. Medicin per tablet e Simethicone Yes Take by [place] 80 MG TABS 09-02 mouth. [place] 16:10: of 22 Medicin e Glucagon 1 Yes Inject [facility] MG/0.2ML 09-02 into the [place] SOA 16:10: skin. of 22 Medicin e dextrose 50 Yes once. [facility] % injection 09-02 [place] 16:10: of 22 Medicin e Glucose 15 Yes Take by [facility] g PACK 09-02 mouth. [place] 16:10: of 22 Medicin e insulin Yes Inject [facility] aspart 09-02 into the [place] (NOVOLOG) 16:10: skin 3 of 100 UNIT/ML 22 times Medicin injection daily e (before meals). Dextran Yes Apply to [facility] 70-Hypromel 09-02 eye. [place] lose 16:10: of (ARTIFICIAL 22 Medicin TEARS) e 0.1-0.3 % SOLN piperacilli Yes 2.25g Inject [place] [facility] n-tazobacta 09-02 2.25 g [facility] (ZOSYN) 16:10: into the of 2-0.25 22 vein every Medicin GM/50ML 6 hours. e IVPB atorvastati Yes 40mg Take 40 mg Ton n (LIPITOR) 09-02 by mouth [facility] 40 MG 16:10: daily. of tablet 22 Medicin e ferrous Yes 325mg Take 325 [facility] sulfate 325 -29 mg by [place] (65 Fe) MG 16:10: mouth of tablet 22 daily. Medicin e insulin Yes Inject Ton glargine 09-02 into the [place] (LANTUS) 16:10: skin of 100 UNIT/ML 22 nightly. Medi [facility]yson injection e Epoetin Yes Inject as [facility] Bob-epbx - directed. [facility] (RETACRIT) 16:10: of 3000 22 Medicin UNIT/ML e SOLN SENNA CO Yes by [facility]. of 10 Medicin e Sevelamer Yes Take by [facility] Carbonate 5-18 mouth. [place] 800 MG TABS 13:26: of 10 Medicin e amlodipine Yes 10mg Take 10 mg [facility] (NORVASC) 5-18 by mouth [facility] 10 MG 13:26: daily. of tablet 10 Medicin e carvedilol Yes 12.5mg Take 12.5 [facility] (COREG) 5-18 mg by [place] 12.5 MG 13:26: mouth 2 of tablet 10 times Medicin daily e (with meals). gabapentin Yes 300mg Take 300 [facility] (NEURONTIN) 5-18 mg by [place] 300 MG 13:26: mouth 3 of capsule 10 times Medicin daily. e ASPIRIN 81 Yes Take by [facility] OR 5-18 mouth. [place] 13:26: of 10 Medicin e Melatonin 3 Yes Take by [place] MG TABS 5-18 mouth. [place] 13:26: of 10 Medicin e Acetaminoph Yes Take by [place] en 5-18 mouth two [place] (TYLENOL) 13:26: times of 325 MG CAPS 10 daily. Medici n e Docusate Yes Take by [facility] Sodium 100 5-18 mouth. [place] MG TABS 13:26: of 10 Medicin e senna-docus Yes 1{tbl} Take 1 [facility] ate 5-18 Tablet by [place] (SENOKOT S) 13:26: mouth of 8.6-50 MG 10 daily. Medicin per tablet e Simethicone Yes Take by [place] 80 MG TABS 5-18 mouth. [place] 13:26: of 10 Medicin e Glucagon 1 Yes Inject [facility] MG/0.2ML 5-18 into the [place] SOAJ 13:26: skin. of 10 Medicin e dextrose 50 Yes once. [facility] % injection -18 [place] 13:26: of 10 Medicin e Glucose 15 Yes Take by [facility] g PACK 5-18 mouth. [place] 13:26: of 10 Medicin e insulin Yes Inject [facility] aspart 5-18 into the [facility] (NOVOLOG) 13:26: skin 3 of 100 UNIT/ML 10 times Medicin injection daily e (before meals). Dextran Yes Apply to [facility] 70-Hypromel -18 eye. [place] lose 13:26: of (ARTIFICIAL 10 Medicin TEARS) e 0.1-0.3 % SOLN piperacilli Yes 2.25g Inject [place] n-tazobacta 18 2.25 g [facility] (ZOSYN) 13:26: into the of 2-0.25 10 vein every Medicin GM/50ML 6 hours. e IVPB atorvastati Yes 40mg Take 40 mg Ton n (LIPITOR) 5-18 by mouth [facility] 40 MG 13:26: daily. of tablet 10 Medicin e ferrous Yes 325mg Take 325 [facility] sulfate 325 5-18 mg by [place] (65 Fe) MG 13:26: mouth of tablet 10 daily. Medicin e insulin Yes Inject [facility] glargine -18 into the [place] (LANTUS) 13:26: skin of 100 UNIT/ML 10 nightly. Medi [facility]yson injection e Epoetin Yes Inject as [facility] Bob-epbx -18 directed. [facility] (RETACRIT) 13:26: of 3000 10 Medicin UNIT/ML e SOLN SENNA CO Yes by [facility]: N route. of 10 Medicin e Sevelamer Yes Take by [facility] r Carbonate 5-18 mouth. [place] 800 MG TABS 13:26: of 10 Medicin e amlodipine Yes 10mg Take 10 mg [facility] (NORVASC) 5-18 by mouth [facility] 10 MG 13:26: daily. of tablet 10 Medicin e carvedilol Yes 12.5mg Take 12.5 [facility] (COREG) 5-18 mg by [place] 12.5 MG 13:26: mouth 2 of tablet 10 times Medicin daily e (with meals). gabapentin Yes 300mg Take 300 [facility] (NEURONTIN) 5-18 mg by [place] 300 MG 13:26: mouth 3 of capsule 10 times Medicin daily. e ASPIRIN 81 Yes Take by [facility] OR 5-18 mouth. [place] 13:26: of 10 Medicin e Melatonin 3 Yes Take by [place] [facility] MG TABS 5-18 mouth. [place] 13:26: of 10 Medicin e Acetaminoph Yes Take by [place] [facility] en 5-18 mouth two [place] (TYLENOL) 13:26: times of 325 MG CAPS 10 daily. Medici n e Docusate Yes Take by [facility] Sodium 100 5-18 mouth. [place] MG TABS 13:26: of 10 Medicin e senna-docus Yes 1{tbl} Take 1 [facility] ate 5-18 Tablet by [place] (SENOKOT S) 13:26: mouth of 8.6-50 MG 10 daily. Medicin per tablet e Simethicone Yes Take by [place] [facility] 80 MG TABS 5-18 mouth. [place] 13:26: of 10 Medicin e Glucagon 1 Yes Inject [facility] MG/0.2ML 5-18 into the [place] SOAJ 13:26: skin. of 10 Medicin e dextrose 50 Yes once. [facility] % injection 07-22 [place] 13:26: of 10 Medicin e Glucose 15 Yes Take by [facility] g PACK -18 mouth. [place] 13:26: of 10 Medicin e insulin Yes Inject [facility] aspart -18 into the [place] (NOVOLOG) 13:26: skin 3 of 100 UNIT/ML 10 times Medicin injection daily e (before meals). Dextran Yes Apply to [facility] 70-Hypromel 5-18 eye. [place] lose 13:26: of (ARTIFICIAL 10 Medicin TEARS) e 0.1-0.3 % SOLN piperacilli Yes 2.25g Inject [place] [facility] n-tazobacta 5-18 2.25 g [facility] (ZOSYN) 13:26: into the of 2-0.25 10 vein every Medicin GM/50ML 6 hours. e IVPB atorvastati Yes 40mg Take 40 mg [facility] n (LIPITOR) 5-18 by mouth [facility] 40 MG 13:26: daily. of tablet 10 Medicin e ferrous Yes 325mg Take 325 [facility] sulfate 325 5-18 mg by [place] (65 Fe) MG 13:26: mouth of tablet 10 daily. Medicin e insulin Yes Inject [facility] glargine 5-18 into the [place] (LANTUS) 13:26: skin of 100 UNIT/ML 10 nightly. Medi greyson injection e Epoetin Yes Inject as [facility] Bob-epbx 5-18 directed. [facility] (RETACRIT) 13:26: of 3000 10 Medicin UNIT/ML [...] x 5.0 cm x 1.0 cm collagenase 0 Yes Apply [facility] 250 UNIT/GM 5-18 Daily to [facility] ointment 00:00: all right of 00 foot Medicin wounds e daily with wound careMeasur ements 4.0cm x 5.0 cm x 1.0 cm collagenase 2020-0 2021- No Apply [facility] 250 UNIT/GM 5-18 07-06 Daily to [facility] ointment 00:00: 00:00 all right of 00 :00 foot Medicin wounds e daily with wound careMeasur ements 4.0cm x 5.0 cm x 1.0 cm hydrALAZINE 2020-0 2020- No 25mg Take 25 mg [facility] (APRESOLINE 4-20 04-20 by mouth 3 C [facility] ) 25 MG 20:48: 00:00 times of tablet 19 :00 daily. Medicin e hydrALAZINE 2020-0 Yes [facility] (APRESOLINE 4-14 [place] ) 100 MG 00:00: of tablet 00 Medicin e NIFEdipine 0 Yes 60mg Take 60 mg [facility] (ADALAT CC) 4-14 by mouth [facility] 60 MG CR 00:00: daily. of tablet 00 Medicin e Tamsulosin 0 Yes .4mg Take 0.4 [place] [facility] HCl 0.4 MG 4-14 mg by [facility] CAPS 00:00: mouth of 00 daily. Medicin e hydrALAZINE 2020-0 Yes [facility] (APRESOLINE 4-14 [place] ) 100 MG 00:00: of tablet 00 Medicin e NIFEdipine 2020-0 Yes 60mg Take 60 mg [facility] (ADALAT CC) 4-14 by mouth [facility] 60 MG CR 00:00: daily. of tablet 00 Medicin e Tamsulosin 2020-0 Yes .4mg Take 0.4 [place] [facility] HCl 0.4 MG 4-14 mg by [facility] CAPS 00:00: mouth of 00 daily. Medicin e hydrALAZINE 2020-0 Yes [facility] (APRESOLINE 4-14 [place] ) 100 MG 00:00: of tablet 00 Medicin e NIFEdipine 2020-0 Yes 60mg Take 60 mg [facility] (ADALAT CC) 4-14 by mouth [facility] 60 MG CR 00:00: daily. of tablet 00 Medicin e Tamsulosin 2020-0 Yes .4mg Take 0.4 [place] [facility] HCl 0.4 MG 4-14 mg by [facility] CAPS 00:00: mouth of 00 daily. Medicin e hydrALAZINE 1-0 Yes [facility] (APRESOLINE 414 [place] ) 100 MG 00:00: of tablet 00 Medicin e NIFEdipine 2020-0 Yes 60mg Take 60 mg [facility] (ADALAT CC) 4-14 by mouth [facility] 60 MG CR 00:00: daily. of tablet 00 Medicin e Tamsulosin 2020-0 Yes .4mg Take 0.4 [place] [facility] HCl 0.4 MG 4-14 mg by [facility] CAPS 00:00: mouth of 00 daily. Medicin e hydrALAZINE 2020-0 Yes [facility] (APRESOLINE 14 [place] ) 100 MG 00:00: of tablet 00 Medicin e NIFEdipine 2020-0 Yes 60mg Take 60 mg [facility] (ADALAT CC) 4-14 by mouth [facility] 60 MG CR 00:00: daily. of tablet 00 Medicin e Tamsulosin 2020-0 Yes .4mg Take 0.4 [place] [facility] HCl 0.4 MG 4-14 mg by [facility] CAPS 00:00: mouth of 00 daily. Medicin e hydrALAZINE 2020-0 Yes [facility] (APRESOLINE 14 [place] ) 100 MG 00:00: of tablet 00 Medicin e NIFEdipine 2020-0 Yes 60mg Take 60 mg [facility] (ADALAT CC) 4-14 by mouth [facility] 60 MG CR 00:00: daily. of tablet 00 Medicin e Tamsulosin 2020-0 Yes .4mg Take 0.4 [place] [facility] HCl 0.4 MG 4-14 mg by [facility] CAPS 00:00: mouth of 00 daily. Medicin e hydrALAZINE 1-0 Yes [facility] (APRESOLINE 14 [place] ) 100 MG 00:00: of tablet 00 Medicin e NIFEdipine 2020-0 Yes 60mg Take 60 mg [facility] (ADALAT CC) 4-14 by mouth [facility] 60 MG CR 00:00: daily. of tablet 00 Medicin e Tamsulosin 2020-0 Yes .4mg Take 0.4 [place] [facility] HCl 0.4 MG 4-14 mg by [facility] CAPS 00:00: mouth of 00 daily. Medicin e hydrALAZINE 1-0 Yes [facility] (APRESOLINE 4-14 [place] ) 25 MG 00:00: of tablet 00 Medicin e NIFEdipine 1-0 Yes 60mg Take 60 mg [facility] (ADALAT CC) 4-14 by mouth [facility] 60 MG CR 00:00: daily. of tablet 00 Medicin e Tamsulosin 2020-0 Yes .4mg Take 0.4 [place] [facility] HCl 0.4 MG 4-14 mg by [facility] CAPS 00:00: mouth of 00 daily. Medicin e hydrALAZINE 1-0 Yes [facility] (APRESOLINE 414 [place] ) 25 MG 00:00: of tablet 00 Medicin e Tamsulosin 2020-0 Yes .4mg Take 0.4 [place] [facility] HCl 0.4 MG 4-14 mg by [facility] CAPS 00:00: mouth of 00 daily. Medicin e hydrALAZINE 1-0 Yes [facility] (APRESOLINE 414 [place] ) 25 MG 00:00: of tablet 00 Medicin e Tamsulosin 2020-0 Yes .4mg Take 0.4 [place] [facility] HCl 0.4 MG 4-14 mg by [facility] CAPS 00:00: mouth of 00 daily. Medicin e hydrALAZINE 2020-0 Yes [facility] (APRESOLINE 14 [place] ) 25 MG 00:00: of tablet 00 Medicin e Tamsulosin 2020-0 Yes .4mg Take 0.4 [place] [facility] HCl 0.4 MG 4-14 mg by [facility] CAPS 00:00: mouth of 00 daily. Medicin e hydrALAZINE 1-0 Yes [facility] (APRESOLINE 4-14 [place] ) 100 MG 00:00: of tablet 00 Medicin e NIFEdipine 2020-0 Yes 60mg Take 60 mg [facility] (ADALAT CC) 4-14 by mouth [facility] 60 MG CR 00:00: daily. of tablet 00 Medicin e Tamsulosin 2020-0 Yes .4mg Take 0.4 [place] [facility] HCl 0.4 MG 4-14 mg by [facility] CAPS 00:00: mouth of 00 daily. Medicin e hydrALAZINE 1-0 Yes [facility] (APRESOLINE 414 [place] ) 100 MG 00:00: of tablet 00 Medicin e hydrALAZINE 2021-0 Yes [facility] (APRESOLINE 06-18 [place] ) 100 MG 00:00: of tablet 00 Medicin e NIFEdipine 2020-0 Yes 60mg Take 60 mg [facility] (ADALAT CC) 4-14 by mouth [facility] 60 MG CR 00:00: daily. of tablet 00 Medicin e Tamsulosin 2020-0 Yes .4mg Take 0.4 [place] [facility] HCl 0.4 MG 4-14 mg by [facility] CAPS 00:00: mouth of 00 daily. Medicin e hydrALAZINE 1-0 Yes [facility] (APRESOLINE 06-18 [place] ) 100 MG 00:00: of tablet 00 Medicin e NIFEdipine 2020-0 Yes 60mg Take 60 mg [facility] (ADALAT CC) 4-14 by mouth [facility] 60 MG CR 00:00: daily. of tablet 00 Medicin e Tamsulosin 2020-0 Yes .4mg Take 0.4 [place] [facility] HCl 0.4 MG 4-14 mg by [facility] CAPS 00:00: mouth of 00 daily. Medicin e hydrALAZINE 2020-0 Yes [facility] (APRESOLINE 06-18 [place] ) 100 MG 00:00: of tablet 00 Medicin e NIFEdipine 2020-0 Yes 60mg Take 60 mg [facility] (ADALAT CC) 4-14 by mouth [facility] 60 MG CR 00:00: daily. of tablet 00 Medicin e Tamsulosin 2020-0 Yes .4mg Take 0.4 [place] [facility] HCl 0.4 MG 4-14 mg by [facility] CAPS 00:00: mouth of 00 daily. Medicin e hydrALAZINE 1-0 Yes [facility] (APRESOLINE 06-18 [place] ) 100 MG 00:00: of tablet 00 Medicin e NIFEdipine 2020-0 Yes 60mg Take 60 mg [facility] (ADALAT CC) 4-14 by mouth [facility] 60 MG CR 00:00: daily. of tablet 00 Medicin e Tamsulosin 2020-0 Yes .4mg Take 0.4 [place] [facility] HCl 0.4 MG 4-14 mg by [facility] CAPS 00:00: mouth of 00 daily. Medicin e hydrALAZINE 1-0 Yes [facility] (APRESOLINE 06-18 [place] ) 100 MG 00:00: of tablet 00 Medicin e NIFEdipine 2020-0 Yes 60mg Take 60 mg [facility] (ADALAT CC) 4-14 by mouth [facility] 60 MG CR 00:00: daily. of tablet 00 Medicin e Tamsulosin 0 Yes .4mg Take 0.4 [place] [facility] HCl 0.4 MG 4-14 mg by [place] CAPS 00:00: mouth of 00 daily. Medicin e NIFEdipine 2020-0 2- No 60mg Take 60 mg [facility] (ADALAT CC) 4-14 -31 by mouth [facility] 60 MG CR 00:00: 00:00 daily. of tablet 00 :00 Medicin e NIFEdipine 2020-0 2021- No 60mg Take 60 mg [facility] (ADALAT CC) 4-14 05-31 by mouth [facility] 60 MG CR 00:00: 00:00 daily. of tablet 00 :00 Medicin e SENNA CO 2020-0 Yes by [facility] 3-24 COMBINATIO [place] 22:07: N route. of 59 Medicin e hydrALAZINE 0 Yes 25mg Take 25 mg [facility] (APRESOLINE 3-24 by mouth 3 [facility] ) 25 MG 22:07: times of tablet 59 daily. Medicin e Sevelamer Yes Take by [place] Carbonate 3-24 mouth. [place] 800 MG TABS 22:07: of 59 Medicin e amlodipine 0 Yes 10mg Take 10 mg [facility] (NORVASC) 3-24 by mouth Colleg e 10 MG 22:07: daily. of tablet 59 Medicin e carvedilol 0 Yes 12.5mg Take 12.5 [facility] (COREG) 3-24 mg by [place] 12.5 MG 22:07: mouth 2 of tablet 59 times Medicin daily e (with meals). gabapentin 0 Yes 300mg Take 300 [facility] (NEURONTIN) 3-24 mg by [place] 300 MG 22:07: mouth 3 of capsule 59 times Medicin daily. e ASPIRIN 81 0 Yes Take by [facility] OR 3-24 mouth. [place] 22:07: of 59 Medicin e Melatonin 3 0 Yes Take by [place] [facility] MG TABS 3-24 mouth. [place] 22:07: of 59 Medicin e Acetaminoph 0 Yes Take by [place] [facility] en 3-24 mouth two [facility] (TYLENOL) 22:07: times of 325 MG CAPS 59 daily. Medici n e Docusate Yes Take by [facility] Sodium 100 3-24 mouth. [place] MG TABS 22:07: of 59 Medicin e senna-docus Yes 1{tbl} Take 1 [facility] ate 3-24 Tablet by [place] (SENOKOT S) 22:07: mouth of 8.6-50 MG 59 daily. Medicin per tablet e Simethicone Yes Take by [place] [facility] 80 MG TABS 3-24 mouth. [place] 22:07: of 59 Medicin e Glucagon 1 Yes Inject [facility] MG/0.2ML 3-24 into the [place] SOA 22:07: skin. of 59 Medicin e dextrose 50 Yes once. [facility] % injection -24 [place] 22:07: of 59 Medicin e Glucose 15 Yes Take by [facility] g PACK 3-24 mouth. [place] 22:07: of 59 Medicin e insulin Yes Inject [facility] aspart 3-24 into the [place] (NOVOLOG) 22:07: skin 3 of 100 UNIT/ML 59 times Medicin injection daily e (before meals). Dextran Yes Apply to [facility] 70-Hypromel 3-24 eye. [place] lose 22:07: of (ARTIFICIAL 59 Medicin TEARS) e 0.1-0.3 % SOLN piperacilli Yes 2.25g Inject [place] [facility] n-tazobacta 3-24 2.25 g [facility] e m (ZOSYN) 22:07: into the of 2-0.25 59 vein every Medicin GM/50ML 6 hours. e IVPB atorvastati Yes 40mg Take 40 mg [facility] n (LIPITOR) 3-24 by mouth [facility] 40 MG 22:07: daily. of tablet 59 Medicin e ferrous Yes 325mg Take 325 [facility] sulfate 325 3-24 mg by [place] (65 Fe) MG 22:07: mouth of tablet 59 daily. Medicin e insulin Yes Inject [facility] glargine 3-24 into the [place] (LANTUS) 22:07: skin of 100 UNIT/ML 59 nightly. Medi [facility] injection e Epoetin Yes Inject as [facility] Bob-epbx 3-24 directed. [facility] (RETACRIT) 22:07: of 3000 59 Medicin UNIT/ML e SOLN SENNA CO Yes by [facility] 3-24 COMBINATIO [place] 22:07: N route. of 59 Medicin e Sevelamer Yes Take by [facility] Carbonate 3-24 mouth. [place] 800 MG TABS 22:07: of 59 Medicin e amlodipine Yes 10mg Take 10 mg [facility] (NORVASC) 3-24 by mouth Colleg e 10 MG 22:07: daily. of tablet 59 Medicin e carvedilol Yes 12.5mg Take 12.5 [facility] (COREG) 3-24 mg by [place] 12.5 MG 22:07: mouth 2 of tablet 59 times Medicin daily e (with meals). gabapentin Yes 300mg Take 300 [facility] (NEURONTIN) 3-24 mg by [place] 300 MG 22:07: mouth 3 of capsule 59 times Medicin daily. e ASPIRIN 81 Yes Take by [facility] OR 3-24 mouth. [place] 22:07: of 59 Medicin e Melatonin 3 Yes Take by [place] [facility] MG TABS 3-24 mouth. [place] 22:07: of 59 Medicin e Acetaminoph Yes Take by [place] darn[facility] en 3-24 mouth two [place] (TYLENOL) 22:07: times of 325 MG CAPS 59 daily. Medici n e Docusate Yes Take by [facility] Sodium 100 3-24 mouth. [place] MG TABS 22:07: of 59 Medicin e senna-docus Yes 1{tbl} Take 1 [facility] ate 3-24 Tablet by [place] (SENOKOT S) 22:07: mouth of 8.6-50 MG 59 daily. Medicin per tablet e Simethicone Yes Take by [place] [facility] 80 MG TABS 3-24 mouth. [place] 22:07: of 59 Medicin e Glucagon 1 Yes Inject [facility] MG/0.2ML 3-24 into the [place] SO 22:07: skin. of 59 Medicin e dextrose 50 2021-0 Yes once. [facility] % injection -24 [place] 22:07: of 59 Medicin e Glucose 15 Yes Take by [facility] g PACK 3-24 mouth. [place] 22:07: of 59 Medicin e insulin Yes Inject [facility] aspart 3-24 into the [place] (NOVOLOG) 22:07: skin 3 of 100 UNIT/ML 59 times Medicin injection daily e (before meals). Dextran Yes Apply to [facility] 70-Hypromel 24 eye. [place] lose 22:07: of (ARTIFICIAL 59 Medicin TEARS) e 0.1-0.3 % SOLN piperacilli Yes 2.25g Inject [place] [facility] n-tazobacta 24 2.25 g [facility] e m (ZOSYN) 22:07: into the 2-0.25 59 vein every Medicin GM/50ML 6 hours. e IVPB atorvastati Yes 40mg Take 40 mg [facility] n (LIPITOR) 324 by mouth [facility] 40 MG 22:07: daily. of tablet 59 Medicin e ferrous Yes 325mg Take 325 [facility] sulfate 325 3-24 mg by [place] (65 Fe) MG 22:07: mouth of tablet 59 daily. Medicin e insulin Yes Inject [facility] glargine 3-24 into the [place] (LANTUS) 22:07: skin of 100 UNIT/ML 59 nightly. Medi greyson injection e Epoetin Yes Inject as [facility] Bob-epbx -24 directed. [facility] ge (RETACRIT) 22:07: of 3000 59 Medicin UNIT/ML e SOLN SENNA CO Yes by [facility] 3-09 COMBINATIO [place] 22:27: N route. of 38 Medicin e hydrALAZINE Yes 25mg Take 25 mg [facility] (APRESOLINE 3-09 by mouth 3 [facility] ) 25 MG 22:27: times of tablet 38 daily. Medicin e Sevelamer Yes Take by [facility] Carbonate 3-09 mouth. [place] 800 MG TABS 22:27: of 38 Medicin e amlodipine Yes 10mg Take 10 mg [facility] (NORVASC) 3-09 by mouth Colleg e 10 MG 22:27: daily. of tablet 38 Medicin e carvedilol Yes 12.5mg Take 12.5 [facility] (COREG) 3-09 mg by [place] 12.5 MG 22:27: mouth 2 of tablet 38 times Medicin daily e (with meals). gabapentin Yes 300mg Take 300 [facility] (NEURONTIN) 3-09 mg by [place] 300 MG 22:27: mouth 3 of capsule 38 times Medicin daily. e ASPIRIN 81 Yes Take by [facility] OR 3-09 mouth. [place] 22:27: of 38 Medicin e Melatonin 3 Yes Take by [place] [facility] MG TABS 3-09 mouth. [place] 22:27: of 38 Medicin e Acetaminoph Yes Take by [place] [facility] en 3-09 mouth two [place] (TYLENOL) 22:27: times of 325 MG CAPS 38 daily. Medici n e Docusate Yes Take by [facility] Sodium 100 3-09 mouth. [place] MG TABS 22:27: of 38 Medicin e senna-docus Yes 1{tbl} Take 1 [facility] ate - Tablet by [place] (SENOKOT S) 22:27: mouth of 8.6-50 MG 38 daily. Medicin per tablet e Simethicone Yes Take by [place] [facility] 80 MG TABS 3-09 mouth. [place] 22:27: of 38 Medicin e Glucagon 1 Yes Inject [facility] MG/0.2ML 05-13 into the [place] SOAJ 22:27: skin. of 38 Medicin e dextrose 50 Yes once. [facility] % injection 05-13 [place] 22:27: of 38 Medicin e Glucose 15 Yes Take by [facility] or g PACK -09 mouth. [place] 22:27: of 38 Medicin e insulin Yes Inject [facility] aspart 05-13 into the [place] (NOVOLOG) 22:27: skin 3 of 100 UNIT/ML 38 times Medicin injection daily e (before meals). Dextran Yes Apply to [facility] 70-Hypromel 05-13 eye. [place] lose 22:27: of (ARTIFICIAL 38 Medicin TEARS) e 0.1-0.3 % SOLN piperacilli Yes 2.25g Inject [place] [facility] n-tazobacta 05-13 2.25 g [place] [facility] m (ZOSYN) 22:27: into the of 2-0.25 38 vein every Medicin GM/50ML 6 hours. e IVPB atorvastati Yes 40mg Take 40 mg [facility] n (LIPITOR) 3-09 by mouth [facility] 40 MG 22:27: daily. of tablet 38 Medicin e ferrous Yes 325mg Take 325 [facility] sulfate 325 3-09 mg by [place] (65 Fe) MG 22:27: mouth of tablet 38 daily. Medicin e insulin Yes Inject [facility] glargine 05-13 into the College (LANTUS) 22:27: skin of 100 UNIT/ML 38 nightly. Medi greyson injection e Epoetin Yes Inject as [facility] Bob-epbx - directed. [facility] (RETACRIT) 22:27: of 3000 38 Medicin UNIT/ML e SOLN SENNA CO Yes by [facility] 2-23 COMBINATIO [place] 21:36: N route. of 53 Medicin e hydrALAZINE Yes 25mg Take 25 mg [facility] (APRESOLINE 2-23 by mouth 3 [facility] ) 25 MG 21:36: times of tablet 53 daily. Medicin e Sevelamer Yes Take by [facility] r Carbonate 2- mouth. [place] 800 MG TABS 21:36: of 53 Medicin e amlodipine Yes 10mg Take 10 mg [facility] (NORVASC) 2-23 by mouth [place] e 10 MG 21:36: daily. of tablet 53 Medicin e carvedilol Yes 12.5mg Take 12.5 [facility] (COREG) 2-23 mg by [place] 12.5 MG 21:36: mouth 2 of tablet 53 times Medicin daily e (with meals). gabapentin Yes 300mg Take 300 [facility] (NEURONTIN) 2-23 mg by [place] 300 MG 21:36: mouth 3 of capsule 53 times Medicin daily. e ASPIRIN 81 Yes Take by [facility] OR 2-23 mouth. [place] 21:36: of 53 Medicin e Melatonin 3 Yes Take by [place] [facility] MG TABS 2-23 mouth. [place] 21:36: of 53 Medicin e Acetaminoph Yes Take by [place] [facility] en 2-23 mouth two [place] (TYLENOL) 21:36: times of 325 MG CAPS 53 daily. Medici n e Docusate Yes Take by [facility] Sodium 100 2-23 mouth. [place] MG TABS 21:36: of 53 Medicin e senna-docus Yes 1{tbl} Take 1 [facility] ate 2-23 Tablet by [place] (SENOKOT S) 21:36: mouth of 8.6-50 MG 53 daily. Medicin per tablet e Simethicone Yes Take by [place] [facility] 80 MG TABS 2-23 mouth. [place] 21:36: of 53 Medicin e Glucagon 1 Yes Inject [facility] MG/0.2ML - into the [place] SOA 21:36: skin. of 53 Medicin e dextrose 50 Yes once. [facility] % injection 04-29 [place] 21:36: of 53 Medicin e Glucose 15 Yes Take by [facility] g PACK 2- mouth. [place] 21:36: of 53 Medicin e insulin Yes Inject [facility] aspart - into the [place] (NOVOLOG) 21:36: skin 3 of 100 UNIT/ML 53 times Medicin injection daily e (before meals). Dextran Yes Apply to [facility] 70-Hypromel 2- eye. [place] lose 21:36: of (ARTIFICIAL 53 Medicin TEARS) e 0.1-0.3 % SOLN piperacilli Yes 2.25g Inject [place] [facility] n-tazobacta 2-23 2.25 g [facility] m (ZOSYN) 21:36: into the of 2-0.25 53 vein every Medicin GM/50ML 6 hours. e IVPB atorvastati Yes 40mg Take 40 mg [facility] n (LIPITOR) 2-23 by mouth [facility] 40 MG 21:36: daily. of tablet 53 Medicin e ferrous 0 Yes 325mg Take 325 [facility] sulfate 325 2-23 mg by [place] (65 Fe) MG 21:36: mouth of tablet 53 daily. Medicin e insulin Yes Inject [facility] glargine 2-23 into the College (LANTUS) 21:36: skin of 100 UNIT/ML 53 nightly. Medi greyson injection e Epoetin Yes Inject as [facility] Bob-epbx 2-23 directed. [facility]le ge (RETACRIT) 21:36: [...] of tablet 00 Medicin e trazodone 0 2021- No 50mg Take 50 mg [facility] (DESYREL) 04-17 by mouth [facility] 50 MG 00:00: 00:00 daily. of tablet 00 :00 Medicin e trazodone 2020-0 2021- No 50mg Take 50 mg [facility] (DESYREL) 04-17 by mouth [facility] 50 MG 00:00: 00:00 daily. of tablet 00 :00 Medicin e SENNA CO Yes by [facility] 2-02 COMBINATIO [facility] 22:05: N route. of Medicin e hydrALAZINE Yes 25mg Take 25 mg [facility] (APRESOLINE 04-08 by mouth 3 [facility] ) 25 MG 22:05: times of tablet daily. Medicin e Sevelamer Yes Take by [facility] r Carbonate 2-02 mouth. [facility] 800 MG TABS 22:05: of Medicin e amlodipine Yes 10mg Take 10 mg [facility] (NORVASC) 2-02 by mouth Colleg e 10 MG 22:05: daily. of tablet 01 Medicin e carvedilol Yes 12.5mg Take 12.5 [facility] (COREG) 2-02 mg by [place] 12.5 MG 22:05: mouth 2 of tablet 01 times Medicin daily e (with meals). gabapentin Yes 300mg Take 300 [facility] (NEURONTIN) 2-02 mg by [place] 300 MG 22:05: mouth 3 of capsule 01 times Medicin daily. e ASPIRIN 81 Yes Take by [facility] OR 2-02 mouth. [place] 22:05: of Medicin e Melatonin 3 Yes Take by [place] MG TABS 2-02 mouth. [place] 22:05: of Medicin e Acetaminoph Yes Take by [place] en 2-02 mouth [facility] (TYLENOL) 22:05: times of 325 MG CAPS 01 daily. Medici n e Docusate Yes Take by [facility] Sodium 100 2- mouth. [facility] MG TABS 22:05: of Medicin e senna-docus Yes 1{tbl} Take 1 [facility] ate 2-02 Tablet by [place] (SENOKOT S) 22:05: mouth of 8.6-50 MG 01 daily. Medicin per tablet e Simethicone Yes Take by [place] [facility] 80 MG TABS 2-02 mouth. [place] 22:05: of 01 Medicin e Glucagon 1 Yes Inject [facility] MG/0.2ML 04-08 into the [place] SOAJ 22:05: skin. of 01 Medicin e dextrose 50 Yes once. [facility] % injection 04-08 [place] 22:05: of 01 Medicin e Glucose 15 Yes Take by [facility] or g PACK 2- mouth. [place] 22:05: of Medicin e insulin Yes Inject [facility] aspart 04-08 into the [place] (NOVOLOG) 22:05: skin 3 of 100 UNIT/ML 01 times Medicin injection daily e (before meals). Dextran Yes Apply to [facility] 70-Hypromel 04-08 eye. [place] lose 22:05: of (ARTIFICIAL 01 Medicin TEARS) e 0.1-0.3 % SOLN piperacilli Yes 2.25g Inject [place] [facility] n-tazobacta 02 2.25 g [facility] e m (ZOSYN) 22:05: into the of 2-0.25 01 vein every Medicin GM/50ML 6 hours. e IVPB atorvastati Yes 40mg Take 40 mg [facility] n (LIPITOR) 202 by mouth [facility] 40 MG 22:05: daily. of tablet 01 Medicin e ferrous Yes 325mg Take 325 [facility] sulfate 325 2-02 mg by [place] (65 Fe) MG 22:05: mouth of tablet 01 daily. Medicin e insulin Yes Inject [facility] glargine 04-08 into the College (LANTUS) 22:05: skin of 100 UNIT/ML 01 nightly. Medi greyson injection e Epoetin Yes Inject as [facility] Bob-epbx 02 directed. [facility] (RETACRIT) 22:05: of 3000 01 Medicin UNIT/ML e SOLN [facility] 2020- [facility] 02-02 mouth. [place] MG/5ML SUSP 22:05: 00:00 of 01 :00 Medicin e furosemide 2020- No 40mg Take 40 mg [facility] (LASIX) 40 02 - by mouth [facility]ia e[facility] MG tablet 22:04: 00:00 daily. of 57 :00 Medicin e SENNA CO Yes by [facility] 1[facility]05 [facility] N route. of 54 Medicin e furosemide Yes 40mg Take 40 mg [facility] (LASIX) 40 1-05 by mouth [facility]le [facility] MG tablet 21:48: daily. of 54 Medicin e hydrALAZINE Yes 25mg Take 25 mg [facility] (APRESOLINE 1-05 by mouth 3 [facility] ) 25 MG 21:48: times of tablet 54 daily. Medicin e Sevelamer Yes Take by [facility] or Carbonate 1-05 mouth. [place] 800 MG TABS 21:48: of 54 Medicin e amlodipine 2021-0 Yes 10mg Take 10 mg [facility] (NORVASC) 1-05 by mouth Colleg e 10 MG 21:48: daily. of tablet 54 Medicin e Spironolact Yes Take by [place] [facility] one 25 1-05 mouth. College MG/5ML SUSP 21:48: of 54 Medicin e carvedilol Yes 12.5mg Take 12.5 [facility] (COREG) 1-05 mg by [place] 12.5 MG 21:48: mouth 2 of tablet 54 times Medicin daily e (with meals). gabapentin Yes 300mg Take 300 [facility] (NEURONTIN) 1-05 mg by [place] 300 MG 21:48: mouth 3 of capsule 54 times Medicin daily. e ASPIRIN 81 Yes Take by [facility] [place] 1-05 mouth. [place] 21:48: of 54 Medicin e SENNA CO 2019-03 Yes by [facility] 0-27 COMBINATIO [place] 21:35: N route. of 11 Medicin e furosemide 2019-03 Yes 40mg Take 40 mg [facility] (LASIX) 40 0-27 by mouth [facility]le [facility] MG tablet 21:35: daily. of 11 Medicin e hydrALAZINE 2019-03 Yes 25mg Take 25 mg [facility] (APRESOLINE 0-27 by mouth 3 Co [facility]lege ) 25 MG 21:35: times of tablet 11 daily. Medicin e Sevelamer 2019-03 Yes Take by [place] Carbon[place] 0-27 mouth. [place] 800 MG TABS 21:35: of 11 Medicin e amlodipine 2019-03 Yes 10mg Take 10 mg [facility] (NORVASC) 0-27 by mouth [facility] 10 MG 21:35: daily. of tablet 11 Medicin e Spironolact 2019-03 Yes Take by [place] [facility] one 25 0-27 mouth. [facility] MG/5ML SUSP 21:35: of 11 Medicin e carvedilol 2019-03 Yes 12.5mg Take 12.5 [facility] (COREG) 0-27 mg by [place] 12.5 MG 21:35: mouth 2 of tablet 11 times Medicin daily e (with meals). gabapentin 2019-03 Yes 300mg Take 300 [facility] (NEURONTIN) 0-27 mg by [place] 300 MG 21:35: mouth 3 of capsule 11 times Medicin daily. e ASPIRIN 81 2019-03 Yes Take by [facility] [place] 0-27 mouth. [place] 21:35: of 11 Medicin e SENNA CO 2019-03 Yes by [facility] 0-27 [facility] 21:35: N route. of 11 Medicin e furosemide 2019-03 Yes 40mg Take 40 mg [facility] (LASIX) 40 0-27 by mouth [facility] MG tablet 21:35: daily. of 11 Medicin e hydrALAZINE 2019-03 Yes 25mg Take 25 mg [facility] (APRESOLINE 0-27 by mouth 3 Co [facility]lege ) 25 MG 21:35: times of tablet 11 daily. Medicin e Sevelamer 2019-03 Yes Take by [facility] r Carbonate 0-27 mouth. [place] 800 MG TABS 21:35: of 11 Medicin e amlodipine 2019-03 Yes 10mg Take 10 mg [facility] (NORVASC) 0-27 by mouth Colleg e 10 MG 21:35: daily. of tablet 11 Medicin e Spironolact 2019-03 Yes Take by [place] [facility] one 25 0-27 mouth. [place] MG/5ML SUSP 21:35: of 11 Medicin e carvedilol 2019-03 Yes 12.5mg Take 12.5 [facility] (COREG) 0-27 mg by [place] 12.5 MG 21:35: mouth 2 of tablet 11 times Medicin daily e (with meals). gabapentin 2019-03 Yes 300mg Take 300 [facility] (NEURONTIN) 0-27 mg by [place] 300 MG 21:35: mouth 3 of capsule 11 times Medicin daily. e ASPIRIN 81 2019-03 Yes Take by [facility] [place] 0-27 mouth. [place] 21:35: of 11 Medicin e amoxicillin 2019-03 2020- No 1{tbl} Take 1 Tab [facility] -clavulanat 0-27 10-27 by mouth 3 C [facility] e 20:31: 00:00 times of (AUGMENTIN) 05 :00 daily. Medici n 500-125 MG e per tablet SENNA CO Yes by [facility] 9-30 [facility] 19:13: N route. of 16 Medicin e furosemide 2019- Yes 40mg Take 40 mg [facility] (LASIX) 40 9-30 by mouth [facility] MG tablet 19:13: daily. of 16 Medicin e hydrALAZINE 2020-0 Yes 25mg Take 25 mg [facility] (APRESOLINE 9-30 by mouth 3 [facility] ) 25 MG 19:13: times of tablet 16 daily. Medicin e Sevelamer 2020-0 Yes Take by [facility] Carbonate 9-30 mouth. [place] 800 MG TABS 19:13: of 16 Medicin e amlodipine 2020-0 Yes 10mg Take 10 mg [facility] (NORVASC) 9-30 by mouth [facility] 10 MG 19:13: daily. of tablet 16 Medicin e amoxicillin 2020-0 Yes 1{tbl} Take 1 Tab [facility] -clavulanat 9-30 by mouth 3 [facility] e 19:13: times of (AUGMENTIN) 16 daily. Medici n 500-125 MG e per tablet Spironolact 2020-0 Yes Take by [place] [facility] one 25 9-30 mouth. [facility] MG/5ML SUSP 19:13: of 16 Medicin e carvedilol 2020-0 Yes 12.5mg Take 12.5 [facility] (COREG) 9-30 mg by [place] 12.5 MG 19:13: mouth 2 of tablet 16 times Medicin daily e (with meals). gabapentin 2020-0 Yes 300mg Take 300 [facility] (NEURONTIN) 9-30 mg by [place] 300 MG 19:13: mouth 3 of capsule 16 times Medicin daily. e ASPIRIN 81 2020-0 Yes Take by [facility] [place] 930 mouth. [place] 19:13: of 16 Medicin e SENNA CO 2020-0 Yes by [facility] 7-28 COMBINATIO [place] 19:33: N route. of 32 Medicin e furosemide 2020-0 Yes 40mg Take 40 mg [facility] (LASIX) 40 7-28 by mouth [facility]le [facility] MG tablet 19:33: daily. of 32 Medicin e hydrALAZINE 2020-0 Yes 25mg Take 25 mg [facility] (APRESOLINE 7-28 by mouth 3 [facility]lege ) 25 MG 19:33: times of tablet 32 daily. Medicin e Sevelamer 2020-0 Yes Take by [facility] Carbonate 7-28 mouth. [place] 800 MG TABS 19:33: of 32 Medicin e amlodipine 2020-0 Yes 10mg Take 10 mg [facility] (NORVASC) 7-28 by mouth [facility] 10 MG 19:33: daily. of tablet 32 Medicin e amoxicillin 2020-0 Yes 1{tbl} Take 1 Tab [facility] -clavulanat 7-28 by mouth 3 Co [facility]lege e 19:33: times of (AUGMENTIN) 32 daily. Medici n 500-125 MG e per tablet Spironolact 2020-0 Yes Take by [place] [facility] one 25 7-28 mouth. [facility] MG/5ML SUSP 19:33: of 32 Medicin e carvedilol 2020-0 Yes 12.5mg Take 12.5 [facility] (COREG) 7-28 mg by [place] 12.5 MG 19:33: mouth 2 of tablet 32 times Medicin daily e (with meals). gabapentin 2020-0 Yes 300mg Take 300 [facility] (NEURONTIN) 7-28 mg by [place] 300 MG 19:33: mouth 3 of capsule 32 times Medicin daily. e ASPIRIN 81 2020-0 Yes Take by [facility] [place] 7-28 mouth. [facility] 19:33: of 32 Medicin e SENNA CO 2020-0 Yes by [facility] 6-30 COMBINATIO [place] 19:37: N route. of 20 Medicin e furosemide 2020-0 Yes 40mg Take 40 mg [facility] (LASIX) 40 6-30 by mouth Colle [facility] MG tablet 19:37: daily. of 20 Medicin e hydrALAZINE 2020-0 Yes 25mg Take 25 mg [facility] (APRESOLINE 6-30 by mouth 3 Co [facility]lege ) 25 MG 19:37: times of tablet 20 daily. Medicin e Sevelamer 2020-0 Yes Take by [place] Carbon[place] 6-30 mouth. [place] 800 MG TABS 19:37: of 20 Medicin [...] per tablet Spironolact 2020-0 Yes Take by [place] [facility] one 25 6-30 mouth. [facility] MG/5ML SUSP 19:37: of 20 Medicin e carvedilol 2020-0 Yes 12.5mg Take 12.5 [facility] (COREG) 6-30 mg by [place] 12.5 MG 19:37: mouth 2 of tablet 20 times Medicin daily e (with meals). gabapentin 2020-0 Yes 300mg Take 300 [facility] (NEURONTIN) 6-30 mg by [place] 300 MG 19:37: mouth 3 of capsule 20 times Medicin daily. e ASPIRIN 81 2020-0 Yes Take by [facility] [place] 6-30 mouth. [place] 19:37: of 20 Medicin e SENNA CO 2020-0 Yes by [facility] 6-30 COMBINATIO [place] 19:37: N route. of 20 Medicin e furosemide 2020-0 Yes 40mg Take 40 mg [facility] (LASIX) 40 6-30 by mouth [facility]le [facility] MG tablet 19:37: daily. of 20 Medicin e hydrALAZINE 2020-0 Yes 25mg Take 25 mg [facility] (APRESOLINE 6-30 by mouth 3 Co [facility] ) 25 MG 19:37: times of tablet 20 daily. Medicin e Sevelamer 2020-0 Yes Take by [place] 6-30 mouth. [place] 800 MG TABS 19:37: of 20 Medicin e amlodipine 2020-0 Yes 10mg Take 10 mg [facility] (NORVASC) 6-30 by mouth [facility] 10 MG 19:37: daily. of tablet 20 Medicin e amoxicillin 2020-0 Yes 1{tbl} Take 1 Tab [facility] -clavulanat 6-30 by mouth 3 Co [facility]lege e 19:37: times of (AUGMENTIN) 20 daily. Medici n 500-125 MG e per tablet Spironolact 2020-0 Yes Take by [place] [facility] one 25 6-30 mouth. [place] MG/5ML SUSP 19:37: of 20 Medicin e carvedilol 2020-0 Yes 12.5mg Take 12.5 [facility] (COREG) 6-30 mg by [place] 12.5 MG 19:37: mouth 2 of tablet 20 times Medicin daily e (with meals). gabapentin 2020-0 Yes 300mg Take 300 [facility] (NEURONTIN) 6-30 mg by [place] 300 MG 19:37: mouth 3 of capsule 20 times Medicin daily. e ASPIRIN 81 2020-0 Yes Take by [facility] [place] 6-30 mouth. [place] 19:37: of 20 Medicin e mupirocin 2020-0 Yes Apply 1-2 [place] [facility] (BACTROBAN) 6-30 grams to [facility] 2 % 00:00: affected of ointment 00 area Medicin daily. e mupirocin 2020-0 Yes Apply 1-2 [place] [facility] (BACTROBAN) 6-30 grams to [facility] 2 % 00:00: affected of ointment 00 area Medicin daily. e mupirocin 2020-0 2020- No Apply 1-2 [facility] (BACTROBAN) 6-30 10-27 grams to Col lege 2 % 00:00: 00:00 affected of ointment 00 :00 area Medicin daily. e SENNA CO 2020-0 Yes by Ton 6-16 COMBINATIO [place] 18:05: N route. of 34 Medicin e furosemide 2019-0 Yes 40mg Take 40 mg [facility] (LASIX) 40 6-16 by mouth [facility]le [facility] MG tablet 18:05: daily. of 34 Medicin e hydrALAZINE 2019-0 Yes 25mg Take 25 mg [facility] (APRESOLINE 6-16 by mouth 3 Co [facility]lege ) 25 MG 18:05: times of tablet 34 daily. Medicin e Sevelamer 2020-0 Yes Take by [place] 6-16 mouth. [place] 800 MG TABS 18:05: of 34 Medicin e amlodipine 2019-0 Yes 10mg Take 10 mg [facility] (NORVASC) 6-16 by mouth Colleg [facility] 10 MG 18:05: daily. of tablet 34 Medicin e amoxicillin 2019-0 Yes 1{tbl} Take 1 Tab [facility] -clavulanat 6-16 by mouth 3 Co [facility]lege e 18:05: times of (AUGMENTIN) 34 daily. Medici n 500-125 MG e per tablet Spironolact 2020-0 Yes Take by [place] [facility] one 25 6-16 mouth. College MG/5ML SUSP 18:05: of 34 Medicin e carvedilol 2020-0 Yes 12.5mg Take 12.5 [facility] (COREG) 6-16 mg by [place] 12.5 MG 18:05: mouth 2 of tablet 34 times Medicin daily e (with meals). gabapentin 2020-0 Yes 300mg Take 300 [facility] (NEURONTIN) 6-16 mg by [place] 300 MG 18:05: mouth 3 of capsule 34 times Medicin daily. e ASPIRIN 81 2020-0 Yes Take by [facility] [place] 6-16 mouth. [facility] 18:05: of 34 Medicin e mupirocin 2020-0 Yes Apply 1-2 [place] [facility] (BACTROBAN) 6-04 grams to [facility] [...] :00 area Medicin daily. e SENNA CO 2019-0 Yes by [facility]: N route. of 37 Medicin e furosemide 2019-0 Yes 40mg Take 40 mg [facility] (LASIX) 40 602 by mouth [facility]le [facility] MG tablet 18:33: daily. of 37 Medicin e hydrALAZINE 2019-0 Yes 25mg Take 25 mg [facility] (APRESOLINE 6-02 by mouth 3 Co [facility]lege ) 25 MG 18:33: times of tablet 37 daily. Medicin e Sevelamer 2019-0 Yes Take by [facility] r Carbonate 6-02 mouth. [place] 800 MG TABS 18:33: of 37 Medicin e amlodipine 2019-0 Yes 10mg Take 10 mg [facility] (NORVASC) 6-02 by mouth [facility] 10 MG 18:33: daily. of tablet 37 Medicin e amoxicillin 2019-0 Yes 1{tbl} Take 1 Tab [facility] -clavulanat 02 by mouth 3 Co [facility]lege e 18:33: times of (AUGMENTIN) 37 daily. Medici n 500-125 MG e per tablet Spironolact 2020-0 Yes Take by [place] [facility] one 25 6-02 mouth. [place] MG/5ML SUSP 18:33: of 37 Medicin e carvedilol 2019-0 Yes 12.5mg Take 12.5 [facility] (COREG) 6-02 mg by [place] 12.5 MG 18:33: mouth 2 of tablet 37 times Medicin daily e (with meals). gabapentin 2020-0 Yes 300mg Take 300 [facility] (NEURONTIN) 6-02 mg by [place] 300 MG 18:33: mouth 3 of capsule 37 times Medicin daily. e ASPIRIN 81 2020-0 Yes Take by [place] 6-02 mouth. [place] 18:33: of 37 Medicin e SENNA CO 2020-0 Yes by [facility] 5-19 COMBINATIO [place] 19:50: N route. of 17 Medicin e furosemide 2020-0 Yes 40mg Take 40 mg [facility] (LASIX) 40 5-19 by mouth Colle [facility] MG tablet 19:50: daily. of 17 Medicin e hydrALAZINE 2020-0 Yes 25mg Take 25 mg [facility] (APRESOLINE 5-19 by mouth 3 Co [facility]lege ) 25 MG 19:50: times of tablet 17 daily. Medicin e Sevelamer 2020-0 Yes Take by [facility] r Carbonate -19 mouth. [place] 800 MG TABS 19:50: of 17 Medicin e amlodipine 2020-0 Yes 10mg Take 10 mg [facility] (NORVASC) -19 by mouth Colleg [facility] 10 MG 19:50: daily. of tablet 17 Medicin e amoxicillin 2020-0 Yes 1{tbl} Take 1 Tab [facility] -clavulanat -19 by mouth 3 Co [facility]lege e 19:50: times of (AUGMENTIN) 17 daily. Medici n 500-125 MG e per tablet Spironolact 2020-0 Yes Take by [place] [facility] one 25 5-19 mouth. [place] MG/5ML SUSP 19:50: of 17 Medicin e carvedilol 2020-0 Yes 12.5mg Take 12.5 [facility] (COREG) 5-19 mg by [place] 12.5 MG 19:50: mouth 2 of tablet 17 times Medicin daily e (with meals). gabapentin 2020-0 Yes 300mg Take 300 [facility] (NEURONTIN) 5-19 mg by [place] 300 MG 19:50: mouth 3 of capsule 17 times Medicin daily. e ASPIRIN 81 2020-0 Yes Take by [place] 5-19 mouth. [place] 19:50: of 17 Medicin e No known No [facility] medications [facility] Medicin e Vital Signs Vital [...] WEIGHT 2019-11-05 93 kg 00:00:00 Systolic blood 2021-10-19 107 mm[Hg] [facility] of pressure 22:26:00 [facility] Diastolic blood 2021-10-19 53 mm[Hg] [facility] o f pressure 22:26:00 [facility] Heart rate 2021-10-19 61 /min [facility] 22:26:00 [facility] Respiratory rate 2021-10-19 14 /min [facility] 22:26:00 [facility] Oxygen saturation 2021-10-19 100 /[facility] in Arterial blood 22:26:00 [facility] by Pulse oximetry Branch Body temperature 2021-10-19 35.67 [facility] 20:26:00 [facility] Body weight 2021-10-19 90 kg [facility] 20:26:00 [facility] Systolic blood 2021-09-08 117 mm[Hg] [facility] Colleg e pressure 21:11:00 of Medicine Diastolic blood 2021-09-08 59 mm[Hg] [facility] pressure 21:11:00 of Medicine Heart rate 2021-09-08 51 /min [facility] 21:11:00 of Medicine Body height 2021-09-08 185.4 cm [facility] 21:11:00 of Medicine Body weight 2021-09-08 86.183 kg [facility] 21:11:00 of Medicine BMI 2021-09-08 25.07 kg/m2 [facility] 21:11:00 of Medicine Systolic blood 2021-08-04 212 mm[Hg] [facility] Colleg e pressure 22:05:00 of Medicine Diastolic blood 2021-08-04 84 mm[Hg] [facility] Colle ge pressure 22:05:00 of Medicine Body height 2021-08-04 185.4 cm [facility] 22:05:00 of Medicine Body weight 2021-08-04 86.183 kg [facility] 22:05:00 of Medicine BMI 2021-08-04 25.07 kg/m2 [facility] 22:05:00 of Medicine Systolic blood 2021-08-04 212 mm[Hg] [facility] pressure 22:09:00 of Medicine Diastolic blood 2021-08-04 84 mm[Hg] [facility] Colle ge pressure 22:09:00 of Medicine Heart rate 2021-08-04 74 /min [facility] 22:09:00 of Medicine Body height 2021-08-04 185.4 cm [facility] 22:09:00 of Medicine Body weight 2021-08-04 86.183 kg [facility] 22:09:00 of Medicine BMI 2021-08-04 25.07 kg/m2 [facility] 22:09:00 of Medicine Systolic blood 2021-07-21 150 mm[Hg] [facility] pressure 15:40:00 of Medicine Diastolic blood 2021-07-21 77 mm[Hg] [facility] pressure 15:40:00 of Medicine Heart rate 2021-07-21 71 /min [facility] 15:40:00 of Medicine Body height 2021-07-21 185.4 cm [facility] 15:40:00 of Medicine Body weight 2021-07-21 86.183 kg [facility] 15:40:00 of Medicine BMI 2021-07-21 25.07 kg/m2 [facility] 15:40:00 of Medicine Systolic blood 2021-05-26 146 mm[Hg] [facility] pressure 21:05:00 of Medicine Diastolic blood 2021-05-26 75 mm[Hg] [facility] Colle ge pressure 21:05:00 of Medicine Heart rate 2021-05-26 92 /min [facility] 21:05:00 of Medicine Body height 2021-05-26 185.4 cm [facility] 21:05:00 of Medicine Body weight 2021-05-26 86.637 kg [facility] 21:05:00 of Medicine BMI 2021-05-26 25.20 kg/m2 [facility] 21:05:00 of Medicine Systolic blood 2021-05-05 148 mm[Hg] [facility] Colleg e pressure 21:53:00 of Medicine Diastolic blood 2021-05-05 80 mm[Hg] [facility] pressure 21:53:00 of Medicine Heart rate 2021-05-05 91 /min [facility] 21:53:00 of Medicine Body height 2021-05-05 185.4 cm [facility] 21:53:00 of Medicine Body weight 2021-05-05 86.637 kg [facility] 21:53:00 of Medicine BMI 2021-05-05 25.20 kg/m2 [facility] 21:53:00 of Medicine Systolic blood 2021-04-07 181 mm[Hg] did not take [facility] Colleg e pressure 21:27:00 b/p meds today of Medicine Diastolic blood 2021-04-07 79 mm[Hg] did not take [facility] Colle ge pressure 21:27:00 b/p meds today of Medicine Heart rate 2021-04-07 78 /min [facility] 21:27:00 of Medicine Body height 2021-04-07 185.4 cm [facility] 21:27:00 of Medicine Body weight 2021-04-07 86.637 kg [facility] 21:27:00 of Medicine BMI 2021-04-07 25.20 kg/m2 [facility] 21:27:00 of Medicine WEIGHT 2021-03-16 78 [...] kg 22:02:00 Systolic blood 2021-02-03 121 mm[Hg] [facility] Colleg e pressure 19:23:00 of Medicine Diastolic blood 2021-02-03 69 mm[Hg] [facility] Colle ge pressure 19:23:00 of Medicine Heart rate 2021-02-03 91 /min [facility] 19:23:00 of Medicine Body height 2021-02-03 185.4 cm [facility] 19:23:00 of Medicine Body weight 2021-02-03 86.637 kg [facility] 19:23:00 of Medicine BMI 2021-02-03 25.20 kg/m2 [facility] 19:23:00 of Medicine Systolic blood 2021-01-20 165 mm[Hg] [facility] pressure 17:05:00 of Medicine Diastolic blood 2021-01-20 92 mm[Hg] [facility] pressure 17:05:00 of Medicine Heart rate 2021-01-20 75 /min [facility] 17:05:00 of Medicine Body height 2021-01-20 185.4 cm [facility] 17:05:00 of Medicine Body weight 2021-01-20 86.637 kg [facility] 17:05:00 of Medicine BMI 2021-01-20 25.20 kg/m2 [facility] 17:05:00 of Medicine Systolic blood 2020-12-23 161 mm[Hg] [facility] pressure 20:28:00 of Medicine Diastolic blood 2020-12-23 92 mm[Hg] [facility] pressure 20:28:00 of Medicine Heart rate 2020-12-23 89 /min [facility] 20:28:00 of Medicine Body height 2020-12-23 185.4 cm [facility] 20:28:00 of Medicine Body weight 2020-12-23 86.637 kg [facility] 20:28:00 of Medicine BMI 2020-12-23 25.20 kg/m2 [facility] 20:28:00 of Medicine Systolic blood 2020-11-25 147 mm[Hg] [facility] pressure 19:32:00 of Medicine Diastolic blood 2020-11-25 73 mm[Hg] [facility] Colle ge pressure 19:32:00 of Medicine Heart rate 2020-11-25 61 /min [facility] 19:32:00 of Medicine Respiratory rate 2020-11-25 14 /min [facility] ege 19:32:00 of Medicine Body height 2020-11-25 185.4 cm [facility] 19:32:00 of Medicine Body weight 2020-11-25 87 kg [facility] 19:32:00 of Medicine BMI 2020-11-25 25.30 kg/m2 [facility] 19:32:00 of Medicine Systolic blood 2020-10-28 154 mm[Hg] [facility] Colleg [facility] pressure 21:32:00 of Medicine Diastolic blood 2020-10-28 77 mm[Hg] [facility] pressure 21:32:00 of Medicine Heart rate 2020-10-28 61 /min [facility] 21:32:00 of Medicine Body height 2020-10-28 182.9 cm [facility] 21:32:00 of Medicine Body weight 2020-10-28 86.637 kg [facility] 21:32:00 of Medicine BMI 2020-10-28 25.90 kg/m2 [facility] 21:32:00 of Medicine Systolic blood 2020-10-14 151 mm[facility]Hg[facility] Medicine Diastolic blood 2020-10-14 77 mm[Hg] [facility] ge pressure 21:20:00 of Medicine Heart rate 2020-10-14 60 /min [facility] 21:20:00 of Medicine Body height 2020-10-14 182.9 cm [facility] 21:20:00 of Medicine Body weight 2020-10-14 86.637 kg [facility] 21:20:00 of Medicine BMI 2020-10-14 25.90 kg/m2 [facility] 21:20:00 of Medicine WEIGHT 2020-10-03 75.6 [...] kg 18:23:00 Systolic blood 2020-08-19 141 mm[Hg] [facility] pressure 20:25:00 of Medicine Diastolic blood 2020-08-19 71 mm[Hg] [facility] pressure 20:25:00 of Medicine Heart rate 2020-08-19 62 /min [facility] 20:25:00 of Medicine Body height 2020-08-19 182.9 cm [facility] 20:25:00 of Medicine Body weight 2020-08-19 84.823 kg [facility] 20:25:00 of Medicine BMI 2020-08-19 25.36 kg/m2 [facility] 20:25:00 of Medicine Systolic blood 2020-08-05 184 mm[Hg] [facility] pressure 18:22:00 of Medicine Diastolic blood 2020-08-05 90 mm[Hg] [facility] pressure 18:22:00 of Medicine Heart rate 2020-08-05 63 /min [facility] 18:22:00 of Medicine Body height 2020-08-05 182.9 cm [facility] 18:22:00 of Medicine Body weight 2020-08-05 84.823 kg [facility] 18:22:00 of Medicine BMI 2020-08-05 25.36 kg/m2 [facility] 18:22:00 of Medicine Systolic blood 2020-07-22 207 mm[Hg] [facility] pressure 18:25:00 of Medicine Diastolic blood 2020-07-22 97 mm[Hg] [facility] pressure 18:25:00 of Medicine Heart rate 2020-07-22 61 /min [facility] 18:25:00 of Medicine Body height 2020-07-22 182.9 cm [facility] 18:25:00 of Medicine Body weight 2020-07-22 84.823 kg [facility] 18:25:00 of Medicine BMI 2020-07-22 25.36 kg/m2 [facility] 18:25:00 of Medicine Systolic blood 2020-06-24 103 mm[Hg] [facility] Colleg e pressure 20:43:00 of Medicine Diastolic blood 2020-06-24 64 mm[Hg] [facility] Colle ge pressure 20:43:00 of Medicine Heart rate 2020-06-24 95 /min [facility] 20:43:00 of Medicine Body height 2020-06-24 182.9 cm [facility] 20:43:00 of Medicine Body weight 2020-06-24 85 kg [facility] 20:43:00 of Medicine BMI 2020-06-24 25.41 kg/m2 [facility] 20:43:00 of Medicine WEIGHT 2020-06-13 81.2 [...] kg 14:51:00 Systolic blood 2020-05-20 144 mm[Hg] [facility] pressure 21:14:00 of Medicine Diastolic blood 2020-05-20 81 mm[Hg] [facility] Colle ge pressure 21:14:00 of Medicine Heart rate 2020-05-20 61 /min [facility] 21:14:00 of Medicine Body height 2020-05-20 182.9 cm [facility] 21:14:00 of Medicine Body weight 2020-05-20 96.616 kg [facility] 21:14:00 of Medicine BMI 2020-05-20 28.89 kg/m2 [facility] 21:14:00 of Medicine Systolic blood 2020-05-20 144 mm[Hg] [facility] pressure 21:14:00 of Medicine Diastolic blood 2020-05-20 81 mm[Hg] [facility] pressure 21:14:00 of Medicine Heart rate 2020-05-20 61 /min [facility] 21:14:00 of Medicine Body height 2020-05-20 182.9 cm [facility] 21:14:00 of Medicine Body weight 2020-05-20 96.616 kg [facility] 21:14:00 of Medicine BMI 2020-05-20 28.89 kg/m2 [facility] 21:14:00 of Medicine Systolic blood 2020-05-13 105 mm[Hg] [facility] pressure 22:27:00 of Medicine Diastolic blood 2020-05-13 65 mm[Hg] [facility] pressure 22:27:00 of Medicine Heart rate 2020-05-13 58 /min [facility] 22:27:00 of Medicine Body height 2020-05-13 182.9 cm [facility] 22:27:00 of Medicine Body weight 2020-05-13 96.616 kg [facility] [facility] 22:27:00 of Medicine BMI 2020-05-13 28.89 kg/m2 [facility] 22:27:00 of Medicine Systolic blood 2020-05-13 105 mm[Hg] [employer] [facility] 22:27:00 of Medicine Diastolic blood 2020-05-13 65 mm[Hg] [employer] [facility] 22:27:00 of Medicine Heart rate 2020-05-13 58 /min [facility] 22:27:00 of Medicine Body height 2020-05-13 182.9 cm [facility] 22:27:00 of Medicine Body weight 2020-05-13 96.616 kg [facility] 22:27:00 of Medicine BMI 2020-05-13 28.89 kg/m2 [facility] 22:27:00 of Medicine Systolic blood 2020-04-29 170 mm[Hg] [employer] [facility] 21:36:00 of Medicine Diastolic blood 2020-04-29 94 mm[Hg] [employer] [facility] 21:36:00 of Medicine Heart rate 2020-04-29 62 /min [facility] 21:36:00 of Medicine Body height 2020-04-29 182.9 cm [facility] 21:36:00 of Medicine Body weight 2020-04-29 96.616 kg [facility] 21:36:00 of Medicine BMI 2020-04-29 28.89 kg/m2 [facility] 21:36:00 of Medicine Systolic blood 2020-04-29 170 mm[Hg] [employer] [facility] 21:36:00 of Medicine Diastolic blood 2020-04-29 94 mm[Hg] [employer] [facility] 21:36:00 of Medicine Heart rate 2020-04-29 62 /min [facility] 21:36:00 of Medicine Body height 2020-04-29 182.9 cm [facility] 21:36:00 of Medicine Body weight 2020-04-29 96.616 kg [facility] 21:36:00 of Medicine BMI 2020-04-29 28.89 kg/m2 [facility] 21:36:00 of Medicine Systolic blood 2020-04-08 163 mm[Hg] [employer] [facility] 21:53:00 of Medicine Diastolic blood 2020-04-08 76 mm[Hg] [facility] [employer] pressure 21:53:00 of Medicine Heart rate 2020-04-08 65 /min [facility] 21:53:00 of Medicine Body height 2020-04-08 182.9 cm [facility] 21:53:00 of Medicine Body weight 2020-04-08 96.616 kg unable to stand [employer] 21:53:00 of Medicine BMI 2020-04-08 28.89 kg/m2 [facility] 21:53:00 of Medicine Systolic blood 2020-04-08 163 mm[Hg] [employer] [facility] 21:53:00 of Medicine Diastolic blood 2020-04-08 76 mm[Hg] [employer] [facility] 21:53:00 of Medicine Heart rate 2020-04-08 65 /min [facility] 21:53:00 of Medicine Body height 2020-04-08 182.9 cm [facility] 21:53:00 of Medicine Body weight 2020-04-08 96.616 kg unable to stand [facility] ge 21:53:00 of Medicine BMI 2020-04-08 28.89 kg/m2 [facility] 21:53:00 of Medicine WEIGHT 2020-03-26 79.3 [...] kg 20:50:00 Systolic blood 2020-03-11 144 mm[facility]Hg] [facility] Diastolic blood 2020-03-11 86 mm[Hg] [facility] ge pressure 21:44:00 of Medicine Heart rate 2020-03-11 74 /min [facility] 21:44:00 of Medicine Body height 2020-03-11 182.9 cm [facility] 21:44:00 of Medicine Body weight 2020-03-11 96.616 kg unable to stand [facility] [employer] 21:44:00 of Medicine BMI 2020-03-11 28.89 kg/m2 [facility] 21:44:00 of Medicine Systolic blood 2020-03-11 144 mm[Hg] [facility] [employer] pressure 21:44:00 of Medicine Diastolic blood 2020-03-11 86 mm[Hg] [facility] pressure 21:44:00 of Medicine Heart rate 2020-03-11 74 /min [facility] 21:44:00 of Medicine Body height 2020-03-11 182.9 cm [facility] 21:44:00 of Medicine Body weight 2020-03-11 96.616 kg unable to stand [facility] [employer] 21:44:00 of Medicine BMI 2020-03-11 28.89 kg/m2 [facility] 21:44:00 of Medicine WEIGHT 2020-01-21 91.4 [...] kg 16:05:00 Systolic blood 2020-01-01 154 mm[Hg] [facility] [employer] pressure 21:34:00 of Medicine Diastolic blood 2020-01-01 79 mm[Hg] [employer] [facility] 21:34:00 of Medicine Heart rate 2020-01-01 67 /min [facility] 21:34:00 of Medicine Body weight 2020-01-01 96.616 kg [facility] 21:34:00 of Medicine BMI 2020-01-01 32.39 kg/m2 [facility] 21:34:00 of Medicine Systolic blood 2020-01-01 154 mm[Hg] [employer] [facility] 21:34:00 of Medicine Diastolic blood 2020-01-01 79 mm[Hg] [employer] [facility] 21:34:00 of Medicine Heart rate 2020-01-01 67 /min [facility] 21:34:00 of Medicine Body weight 2020-01-01 96.616 kg [facility] 21:34:00 of Medicine BMI 2020-01-01 32.39 kg/m2 [facility] 21:34:00 of Medicine Systolic blood 2020-01-01 154 mm[Hg] [facility] [employer] pressure 20:24:00 of Medicine Diastolic blood 2020-01-01 79 mm[Hg] [facility] pressure 20:24:00 of Medicine Heart rate 2020-01-01 67 /min [facility] 20:24:00 of Medicine Body height 2020-01-01 172.7 cm [facility] 20:24:00 of Medicine Body weight 2020-01-01 97 kg [facility] 20:24:00 of Medicine BMI 2020-01-01 32.52 kg/m2 [facility] 20:24:00 of Medicine Systolic blood 2020-01-01 154 mm[Hg] [employer] [facility] 20:24:00 of Medicine Diastolic blood 2020-01-01 79 mm[Hg] [facility] [employer] pressure 20:24:00 of Medicine Heart rate 2020-01-01 67 /min [facility] 20:24:00 of Medicine Body height 2020-01-01 172.7 cm [facility] 20:24:00 of Medicine Body weight 2020-01-01 97 kg [facility] 20:24:00 of Medicine BMI 2020-01-01 32.52 kg/m2 [facility] 20:24:00 of Medicine WEIGHT 2019-12-21 98 kg 15:30:00 WEIGHT 2019-12-21 99.5 kg 12:30:00 WEIGHT 2019-12-19 99.5 kg 13:30:00 WEIGHT 2019-12-17 99.5 kg 11:26:00 WEIGHT 2019-12-14 101.4 kg 16:45:00 HEIGHT 2019-12-05 185.4 cm 20:42:00 HEIGHT 2019-12-05 185.4 cm 00:00:00 WEIGHT 2019-12-05 101.4 kg 00:00:00 Systolic blood 2019-12-05 127 mm[Hg] [employer] [facility] 19:12:00 of Medicine Diastolic blood 2019-12-05 77 mm[Hg] [facility] [employer] pressure 19:12:00 of Medicine Heart rate 2019-12-05 67 /min [facility] 19:12:00 of Medicine Body height 2019-12-05 172.7 cm [facility] 19:12:00 of Medicine Body weight 2019-12-05 104.327 kg [facility] 19:12:00 of Medicine BMI 2019-12-05 34.97 kg/m2 [facility] 19:12:00 of Medicine Systolic blood 2019-12-05 127 mm[Hg] [facility] [employer] pressure 19:12:00 of Medicine Diastolic blood 2019-12-05 77 mm[Hg] [employer] [facility] 19:12:00 of Medicine Heart rate 2019-12-05 67 /min [facility] 19:12:00 of Medicine Body height 2019-12-05 172.7 cm [facility] 19:12:00 of Medicine Body weight 2019-12-05 104.327 kg [facility] 19:12:00 of Medicine BMI 2019-12-05 34.97 kg/m2 [facility] 19:12:00 of Medicine HEIGHT 2019-11-05 185.4 cm 00:00:00 WEIGHT 2019-11-05 93 kg 00:00:00 HEIGHT 2019-10-10 185.4 cm 00:00:00 WEIGHT 2019-10-10 110 kg 00:00:00 Systolic blood 2019-10-02 202 mm[Hg] [employer] [facility] 19:32:00 of Medicine Diastolic blood 2019-10-02 110 mm[Hg] [employer] [facility] 19:32:00 of Medicine Heart rate 2019-10-02 67 /min [facility] 19:32:00 of Medicine Body height 2019-10-02 172.7 cm [facility] 19:32:00 of Medicine Body weight 2019-10-02 104.327 kg [facility] 19:32:00 of Medicine BMI 2019-10-02 34.97 kg/m2 [facility] 19:32:00 of Medicine Systolic blood 2019-10-02 202 mm[Hg] [facility] [employer] pressure 19:32:00 of Medicine Diastolic blood 2019-10-02 110 mm[Hg] [facility] [employer] pressure 19:32:00 of Medicine Heart rate 2019-10-02 67 /min [facility] 19:32:00 of Medicine Body height 2019-10-02 172.7 cm [facility] 19:32:00 of Medicine Body weight 2019-10-02 104.327 kg [facility] 19:32:00 of Medicine BMI 2019-10-02 34.97 kg/m2 [facility] 19:32:00 of Medicine Systolic blood 2019-09-04 165 mm[Hg] [employer] [facility] 19:36:00 of Medicine Diastolic blood 2019-09-04 91 mm[Hg] [facility] [employer] pressure 19:36:00 of Medicine Heart rate 2019-09-04 70 /min [facility] 19:36:00 of Medicine Body height 2019-09-04 172.7 cm [facility] 19:36:00 of Medicine Body weight 2019-09-04 104.327 kg [facility] 19:36:00 of Medicine BMI 2019-09-04 34.97 kg/m2 [facility] 19:36:00 of Medicine Systolic blood 2019-09-04 165 mm[Hg] [facility] [employer] pressure 19:36:00 of Medicine Diastolic blood 2019-09-04 91 mm[Hg] [facility] [employer] pressure 19:36:00 of Medicine Heart rate 2019-09-04 70 /min [facility] 19:36:00 of Medicine Body height 2019-09-04 172.7 cm [facility] 19:36:00 of Medicine Body weight 2019-09-04 104.327 kg [facility] 19:36:00 of Medicine BMI 2019-09-04 34.97 kg/m2 [facility] 19:36:00 of Medicine Systolic blood 2019-09-04 165 mm[Hg] [facility] [employer] pressure 19:29:00 of Medicine Diastolic blood 2019-09-04 91 mm[Hg] [facility] [employer] pressure 19:29:00 of Medicine Heart rate 2019-09-04 70 /min [facility] 19:29:00 of Medicine Body height 2019-09-04 172.7 cm [facility] 19:29:00 of Medicine Body weight 2019-09-04 104.327 kg [facility] 19:29:00 of Medicine BMI 2019-09-04 34.97 kg/m2 [facility] 19:29:00 of Medicine Systolic blood 2019-09-04 165 mm[Hg] [facility] [employer] pressure 19:29:00 of Medicine Diastolic blood 2019-09-04 91 mm[Hg] [employer] [facility] 19:29:00 of Medicine Heart rate 2019-09-04 70 /min [facility] 19:29:00 of Medicine Body height 2019-09-04 172.7 cm [facility] 19:29:00 of Medicine Body weight 2019-09-04 104.327 kg [facility] 19:29:00 of Medicine BMI 2019-09-04 34.97 kg/m2 [facility] 19:29:00 of Medicine Systolic blood 2019-08-21 137 mm[Hg] [facility] [employer] pressure 18:04:00 of Medicine Diastolic blood 2019-08-21 77 mm[Hg] [employer] [facility] 18:04:00 of Medicine Heart rate 2019-08-21 72 /min [facility] 18:04:00 of Medicine Body height 2019-08-21 172.7 cm [facility] 18:04:00 of Medicine Body weight 2019-08-21 104.327 kg [facility] 18:04:00 of Medicine BMI 2019-08-21 34.97 kg/m2 [facility] 18:04:00 of Medicine Systolic blood 2019-08-21 137 mm[Hg] [facility] [employer] pressure 18:04:00 of Medicine Diastolic blood 2019-08-21 77 mm[Hg] [facility] pressure 18:04:00 of Medicine Heart rate 2019-08-21 72 /min [facility] 18:04:00 of Medicine Body height 2019-08-21 172.7 cm [facility] 18:04:00 of Medicine Body weight 2019-08-21 104.327 kg [facility] 18:04:00 of Medicine BMI 2019-08-21 34.97 kg/m2 [facility] 18:04:00 of Medicine Systolic blood 2019-08-07 148 mm[Hg] [employer] [facility] 18:34:00 of Medicine Diastolic blood 2019-08-07 77 mm[Hg] [employer] [facility] 18:34:00 of Medicine Heart rate 2019-08-07 65 /min [facility] 18:34:00 of Medicine Body height 2019-08-07 172.7 cm [facility] 18:34:00 of Medicine Body weight 2019-08-07 104.327 kg [facility] 18:34:00 of Medicine BMI 2019-08-07 34.97 kg/m2 [facility] 18:34:00 of Medicine Systolic blood 2019-08-07 148 mm[Hg] [facility] [employer] pressure 18:34:00 of Medicine Diastolic blood 2019-08-07 77 mm[Hg] [employer] [facility] 18:34:00 of Medicine Heart rate 2019-08-07 65 /min [facility] 18:34:00 of Medicine Body height 2019-08-07 172.7 cm [facility] 18:34:00 of Medicine Body weight 2019-08-07 104.327 kg [facility] 18:34:00 of Medicine BMI 2019-08-07 34.97 kg/m2 [facility] 18:34:00 of Medicine Systolic blood 2019-07-24 146 mm[Hg] [facility] [employer] pressure 18:50:00 of Medicine Diastolic blood 2019-07-24 80 mm[Hg] [facility] [employer] pressure 18:50:00 of Medicine Heart rate 2019-07-24 68 /min [facility] 18:50:00 of Medicine Body height 2019-07-24 172.7 cm [facility] 18:50:00 of Medicine Body weight 2019-07-24 104.327 kg [facility] 18:50:00 of Medicine BMI 2019-07-24 34.97 kg/m2 [facility] 18:50:00 of Medicine Systolic blood 2019-07-24 146 mm[Hg] [facility] [employer] pressure 18:50:00 of Medicine Diastolic blood 2019-07-24 80 mm[Hg] [facility] [employer] pressure 18:50:00 of Medicine Heart rate 2019-07-24 68 /min [facility] 18:50:00 of Medicine Body height 2019-07-24 172.7 cm [facility] 18:50:00 of Medicine Body weight 2019-07-24 104.327 kg [facility] 18:50:00 of Medicine BMI 2019-07-24 34.97 kg/m2 [facility] 18:50:00 of Medicine Systolic blood 2019-07-17 130 mm[Hg] [facility] [employer] pressure 16:32:00 of Medicine Diastolic blood 2019-07-17 51 mm[Hg] [facility] [employer] pressure 16:32:00 of Medicine Heart rate 2019-07-17 68 /min [facility] 16:32:00 of Medicine Body height 2019-07-17 172.7 cm [facility] 16:32:00 of Medicine Body weight 2019-07-17 104.327 kg [facility] 16:32:00 of Medicine BMI 2019-07-17 34.97 kg/m2 [facility] 16:32:00 of Medicine Systolic blood 2019-07-17 130 mm[Hg] [facility] [employer] pressure 16:32:00 of Medicine Diastolic blood 2019-07-17 51 mm[Hg] [facility] [employer] pressure 16:32:00 of Medicine Heart rate 2019-07-17 68 /min [facility] 16:32:00 of Medicine Body height 2019-07-17 172.7 cm [facility] 16:32:00 of Medicine Body weight 2019-07-17 104.327 kg [facility] 16:32:00 of Medicine BMI 2019-07-17 34.97 kg/m2 [facility] 16:32:00 of Medicine Systolic blood 2019-07-10 126 mm[Hg] [employer] [facility] 20:16:00 of Medicine Diastolic blood 2019-07-10 72 mm[Hg] [facility] pressure 20:16:00 of Medicine Heart rate 2019-07-10 86 /min [facility] 20:16:00 of Medicine Body height 2019-07-10 172.7 cm [facility] 20:16:00 of Medicine Body weight 2019-07-10 104.327 kg [facility] 20:16:00 of Medicine BMI 2019-07-10 34.97 kg/m2 [facility] 20:16:00 of Medicine Systolic blood 2019-07-10 126 mm[Hg] [employer] [facility] 20:16:00 of Medicine Diastolic blood 2019-07-10 72 mm[Hg] [employer] [facility] 20:16:00 of Medicine Heart rate 2019-07-10 86 /min [facility] 20:16:00 of Medicine Body height 2019-07-10 172.7 cm [facility] 20:16:00 of Medicine Body weight 2019-07-10 104.327 kg [facility] 20:16:00 of Medicine BMI 2019-07-10 34.97 kg/m2 [facility] 20:16:00 of Medicine Procedures Procedure Date / Time Performing Clinician Source Performed COVID-19 (ID NOW RAPID 2021-10-19 22:26:00 [facility] Medical Branch COMP. METABOLIC PANEL 2021-10-19 21:34:00 Oralia Martines [facility] ([id number]) Medical Branch XR CHEST 1 VW 2021-10-19 20:57:35 Oralia Martines [facility] HB ECG ROUTINE & RHYTHM 2021-10-19 20:36:21 [facility] 2021-10-19 20:32:00 Oralia Martines [facility] CBC WITH DIFF 2021-10-19 20:32:00 Oralia Martines [facility] RI DEBRIDEMENT, SKIN, 2021-09-13 10:19:48 [facility] of SUB-Q TISSUE,=<20 SQ CM Medicine WOUND CARE INSTRUCTIONS 2021-08-04 17:21:14 [facility] [id number] 2020-04-12 00:00:00 ENCPL [id number] 2020-04-12 00:00:00 ENCPL 13336E1 2020-04-12 00:00:00 ENCPL [id number] 2020-04-12 00:00:00 ENCPL 02249V2 2020-04-12 00:00:00 ENCPL 24505G2 2020-04-12 00:00:00 ENCPL 57472C7 2020-04-12 00:00:00 ENCPL [id number] 2020-04-12 00:00:00 ENCPL 43561K6 2020-04-12 00:00:00 ENCPL 08198G8 2020-04-12 00:00:00 ENCPL [id number] 2020-03-28 00:00:00 ENCPL [id number] 2020-03-28 00:00:00 ENCPL 0H4K24H 2020-03-28 00:00:00 ENCPL 8Y9M83S 2020-03-28 00:00:00 ENCPL 8Z0O82Z 2020-03-28 00:00:00 ENCPL 3G6P81Q 2020-03-28 00:00:00 ENCPL 1N4V84L 2020-03-28 00:00:00 ENCPL 8F6S27D 2020-03-28 00:00:00 ENCPL [id number] 2020-03-28 00:00:00 ENCPL [id number] 2020-03-28 00:00:00 ENCPL 6V2N29R 2020-03-28 00:00:00 ENCPL 8L0P08U 2020-03-28 00:00:00 ENCPL 4T9E36M 2020-03-28 00:00:00 ENCPL 0D0D76I 2020-03-28 00:00:00 ENCPL [id number] 2020-03-28 00:00:00 ENCPL 6K0M07L 2020-03-28 00:00:00 ENCPL 3L3C73M 2020-03-28 00:00:00 ENCPL 9T9V54H 2020-03-28 00:00:00 ENCPL 2F1L98J 2020-03-28 00:00:00 ENCPL 1P5L41I 2020-03-28 00:00:00 ENCPL 7O2Z61I 2020-03-28 00:00:00 ENCPL 5D6C07W 2020-03-28 00:00:00 ENCPL 2C8R55H 2020-03-28 00:00:00 ENCPL 3O5K09B 2020-03-28 00:00:00 ENCPL 0F6U85Q 2020-03-28 00:00:00 ENCPL 7D9P69E 2020-03-28 00:00:00 ENCPL 2C4J08V 2020-03-28 00:00:00 ENCPL 8I8R23W 2020-03-28 00:00:00 ENCPL 2K2Q38V 2019-06-29 00:00:00 ENCPL 7W6V75X 2019-06-29 00:00:00 ENCPL 4Z9Z27V 2019-06-29 00:00:00 ENCPL 3T2G83C 2019-06-29 00:00:00 ENCPL 2R7E03H 2019-06-29 00:00:00 ENCPL 4M7C18F 2019-06-29 00:00:00 ENCPL 2Z3W87S 2019-06-29 00:00:00 ENCPL Plan of Care Planned Activity Planned Date Details Comments Source Future Scheduled 2021-09-13 RI DEBRIDEMENT, SKIN, Ordered: [facility] Test 10:19:48 SUB-Q TISSUE,=<20 SQ CM 09/13/2021 of M edicine [code = 94033] Future Scheduled 2021-09-13 Screening for malignant [facility] Test 10:19:26 neoplasm of colon of Medicin e (procedure) [code = 327444221] Future Scheduled 2021-09-13 COVID-19 Vaccine (#1) [facility] Test 10:19:26 [code = COVID-19 of Medicine Vaccine (#1)] Future Scheduled 2021-09-13 Pneumococcal Combined [facility] Test 10:19:26 (1 - PCV) [code = of Medicin e Pneumococcal Combined (1 - PCV)] Future Scheduled 2021-09-13 TETANUS SHOT (ADULT) [facility] Test 10:19:26 [code = TETANUS SHOT of Medi cine (ADULT)] Future Scheduled 2021-09-13 Diabetic foot [facility] Test 10:19:26 examination of Medicine (regime/therapy) [code = 737446809] Future Scheduled 2021-09-13 ANNUAL DIABETIC [facility] Test 10:19:26 RETINOPATHY SCREENING of Med icine [code = ANNUAL DIABETIC RETINOPATHY SCREENING] Future Scheduled 2021-09-13 Hepatitis C screening [facility] Test 10:19:26 (procedure) [code = of Medic ine 097729901] Future Scheduled 2021-09-13 Human immunodeficiency [facility] Test 10:19:26 virus screening of Medicine (procedure) [code = 371150631] Future Scheduled 2021-09-13 ZOSTER VACCINE (1 of 2) [facility] Test 10:19:26 [code = ZOSTER VACCINE of Me dicine (1 of 2)] Future Scheduled 2021-09-13 MEDICARE AWV (Initial) [facility] Test 10:19:26 [code = MEDICARE AWV of Medi cine (Initial)] Future Scheduled 2021-09-13 BMI FOLLOW UP PLAN [facility] Test 10:19:26 [code = BMI FOLLOW UP of Med icine PLAN] Future Scheduled 2021-09-13 FLU VACCINE > 6 MONTHS [facility] Test 10:19:26 [code = FLU VACCINE > 6 of M edicine MONTHS] Future Scheduled 2021-08-13 Screening for malignant [facility] Test 15:24:00 neoplasm of colon of Medicin e (procedure) [code = 935994536] Future Scheduled 2021-08-13 COVID-19 Vaccine (#1) [facility] Test 15:24:00 [code = COVID-19 of Medicine Vaccine (#1)] Future Scheduled 2021-08-13 Pneumococcal Combined [facility] Test 15:24:00 (1 - PCV) [code = of Medicin e Pneumococcal Combined (1 - PCV)] Future Scheduled 2021-08-13 TETANUS SHOT (ADULT) [facility] Test 15:24:00 [code = TETANUS SHOT of Medi cine (ADULT)] Future Scheduled 2021-08-13 Diabetic foot [facility] Test 15:24:00 examination of Medicine (regime/therapy) [code = 609394625] Future Scheduled 2021-08-13 ANNUAL DIABETIC [facility] Test 15:24:00 RETINOPATHY SCREENING of Med icine [code = ANNUAL DIABETIC RETINOPATHY SCREENING] Future Scheduled 2021-08-13 Hepatitis C screening [facility] Test 15:24:00 (procedure) [code = of Medic ine [id number]] Future Scheduled 2021-08-13 Human immunodeficiency [facility] Test 15:24:00 virus screening of Medicine (procedure) [code = 157235383] Future Scheduled 2021-08-13 ZOSTER VACCINE (1 of 2) [facility] Test 15:24:00 [code = ZOSTER VACCINE of Me dicine (1 of 2)] Future Scheduled 2021-08-13 MEDICARE AWV (Initial) [facility] Test 15:24:00 [code = MEDICARE AWV of Medi cine (Initial)] Future Scheduled 2021-08-13 BMI FOLLOW UP PLAN [facility] Test 15:24:00 [code = BMI FOLLOW UP of Med icine PLAN] Future Scheduled 2021-08-13 FLU VACCINE > 6 MONTHS B [facility] Test 15:24:00 [code = FLU VACCINE > 6 of M edicine MONTHS] Future Scheduled 2021-08-07 Screening for malignant [facility] Test 15:20:05 neoplasm of colon of Medicin e (procedure) [code = 001006922] Future Scheduled 2021-08-07 COVID-19 Vaccine (#1) [facility] Test 15:20:05 [code = COVID-19 of Medicine Vaccine (#1)] Future Scheduled 2021-08-07 Pneumococcal Combined [facility] Test 15:20:05 (1 - PCV) [code = of Medicin e Pneumococcal Combined (1 - PCV)] Future Scheduled 2021-08-07 TETANUS SHOT (ADULT) [facility] Test 15:20:05 [code = TETANUS SHOT of Medi cine (ADULT)] Future Scheduled 2021-08-07 Diabetic foot [facility] Test 15:20:05 examination of Medicine (regime/therapy) [code = 146258460] Future Scheduled 2021-08-07 ANNUAL DIABETIC [facility] Test 15:20:05 RETINOPATHY SCREENING of Med icine [code = ANNUAL DIABETIC RETINOPATHY SCREENING] Future Scheduled 2021-08-07 Hepatitis C screening [facility] Test 15:20:05 (procedure) [code = of Medic ine 127798594] Future Scheduled 2021-08-07 Human immunodeficiency B [facility] Test 15:20:05 virus screening of Medicine (procedure) [code = 263016856] Future Scheduled 2021-08-07 ZOSTER VACCINE (1 of 2) [facility] [facility] Test 15:20:05 [code = ZOSTER VACCINE of Me dicine (1 of 2)] Future Scheduled 2021-08-07 MEDICARE AWV (Initial) B [facility] Test 15:20:05 [code = MEDICARE AWV of Medi cine (Initial)] Future Scheduled 2021-08-07 BMI FOLLOW UP PLAN [facility] Test 15:20:05 [code = BMI FOLLOW UP of Med icine PLAN] Future Scheduled 2021-08-07 FLU VACCINE > 6 MONTHS B [facility] Test 15:20:05 [code = FLU VACCINE > 6 of M edicine MONTHS] Future Scheduled 2021-08-04 WOUND CARE INSTRUCTIONS Ordered: [facility] Test 17:21:14 [code = 90039] 08/04/2021 of Medicine Future Scheduled 2021-07-31 Screening for malignant [facility] Test 12:21:49 neoplasm of colon of Medicin e (procedure) [code = 668709596] Future Scheduled 2021-07-31 COVID-19 Vaccine (#1) [facility] Test 12:21:49 [code = COVID-19 of Medicine Vaccine (#1)] Future Scheduled 2021-07-31 Pneumococcal Combined [facility] Test 12:21:49 (1 - PCV) [code = of Medicin e Pneumococcal Combined (1 - PCV)] Future Scheduled 2021-07-31 TETANUS SHOT (ADULT) [facility] Test 12:21:49 [code = TETANUS SHOT of Medi cine (ADULT)] Future Scheduled 2021-07-31 Diabetic foot [facility] Test 12:21:49 examination of Medicine (regime/therapy) [code = 052248137] Future Scheduled 2021-07-31 ANNUAL DIABETIC [facility] Test 12:21:49 RETINOPATHY SCREENING of Med icine [code = ANNUAL DIABETIC RETINOPATHY SCREENING] Future Scheduled 2021-07-31 Hepatitis C screening [facility] Test 12:21:49 (procedure) [code = of Medic ine 147162393] Future Scheduled 2021-07-31 Human immunodeficiency B [facility] Test 12:21:49 virus screening of Medicine (procedure) [code = 746461359] Future Scheduled 2021-07-31 ZOSTER VACCINE (1 of 2) [facility] Test 12:21:49 [code = ZOSTER VACCINE of Sc dicine (1 of 2)] Future Scheduled 2021-07-31 MEDICARE AWV (Initial) B [facility] Test 12:21:49 [code = MEDICARE AWV of Medi cine (Initial)] Future Scheduled 2021-07-31 BMI FOLLOW UP PLAN [facility] Test 12:21:49 [code = BMI FOLLOW UP of Med icine PLAN] Future Scheduled 2021-07-31 FLU VACCINE > 6 MONTHS B [facility] Test 12:21:49 [code = FLU VACCINE > 6 of edicine MONTHS] Future Scheduled 2021-07-21 US PREOP VESSEL MAPPING 1 Occurrences [facility] Test 11:28:01 HD ACCESS ARM RENNY [code starting of edicine = 31750] 07/21/2021 until 07/21/2022 Future Scheduled 2021-06-01 RI DEBRIDEMENT OPEN Ordered: [employer] Test 07:15:12 WOUND 20 SQ CM< [code = 06/01/2021 of M edicine 03309] Future Scheduled 2021-06-01 Screening for malignant [facility] Test 07:06:46 neoplasm of colon of Medicin e (procedure) [code = 959777243] Future Scheduled 2021-06-01 COVID-19 Vaccine (1) [facility] Test 07:06:46 [code = COVID-19 of Medicine Vaccine (1)] Future Scheduled 2021-06-01 Pneumococcal Combined [facility] Test 07:06:46 (1 of 2 - PPSV23) [code of M edicine = Pneumococcal Combined (1 of 2 - PPSV23)] Future Scheduled 2021-06-01 TETANUS SHOT (ADULT) [facility] Test 07:06:46 [code = TETANUS SHOT of Medi cine (ADULT)] Future Scheduled 2021-06-01 Diabetic foot [facility] Test 07:06:46 examination of Medicine (regime/therapy) [code = 793135952] Future Scheduled 2021-06-01 ANNUAL DIABETIC [facility] Test 07:06:46 RETINOPATHY SCREENING of Med icine [code = ANNUAL DIABETIC RETINOPATHY SCREENING] Future Scheduled 2021-06-01 Hepatitis C screening [facility] Test 07:06:46 (procedure) [code = of Medic ine 355598965] Future Scheduled 2021-06-01 Human immunodeficiency B [facility] Test 07:06:46 virus screening of Medicine (procedure) [code = 421607689] Future Scheduled 2021-06-01 ZOSTER VACCINE (1 of 2) [facility] Test 07:06:46 [code = ZOSTER VACCINE of Sc dicine (1 of 2)] Future Scheduled 2021-06-01 MEDICARE AWV (Initial) B [facility] Test 07:06:46 [code = MEDICARE AWV of [facility] cine (Initial)] Future Scheduled 2021-06-01 FLU VACCINE > 6 MONTHS B [facility] Test 07:06:46 [code = FLU VACCINE > 6 of edicine MONTHS] Future Scheduled 2021-06-01 BMI FOLLOW UP PLAN [facility] Test 07:06:46 [code = BMI FOLLOW UP of Med icine PLAN] Future Scheduled 2021-05-26 WOUND CARE INSTRUCTIONS Ordered: [facility] Test 16:55:26 [code = 90730] 05/26/2021 of Medicine Future Scheduled 2021-05-08 RI DEBRIDEMENT OPEN Ordered: [facility] [employer] Test 10:32:08 WOUND 20 SQ CM< [code = 05/08/2021 of M edicine 93154] Future Scheduled 2021-05-08 RI DEBRIDEMENT OPEN Ordered: [employer] Test 10:32:08 WOUND EA ADDL 20 SQ CM 05/08/2021 of Me dicine [code = 64338] Future Scheduled 2021-05-08 Screening for malignant [facility] Test 10:19:03 neoplasm of colon of Medicin e (procedure) [code = 697047027] Future Scheduled 2021-05-08 COVID-19 Vaccine (1) [facility] Test 10:19:03 [code = COVID-19 of Medicine Vaccine (1)] Future Scheduled 2021-05-08 Pneumococcal Combined [facility] Test 10:19:03 (1 of 2 - PPSV23) [code of M edicine = Pneumococcal Combined (1 of 2 - PPSV23)] Future Scheduled 2021-05-08 TETANUS SHOT (ADULT) [facility] Test 10:19:03 [code = TETANUS SHOT of Medi cine (ADULT)] Future Scheduled 2021-05-08 Diabetic foot [facility] Test 10:19:03 examination of Medicine (regime/therapy) [code = 349347066] Future Scheduled 2021-05-08 ANNUAL DIABETIC [facility] Test 10:19:03 RETINOPATHY SCREENING of Med icine [code = ANNUAL DIABETIC RETINOPATHY SCREENING] Future Scheduled 2021-05-08 Hepatitis C screening [facility] Test 10:19:03 (procedure) [code = of Medic ine 579841850] Future Scheduled 2021-05-08 Human immunodeficiency B [facility] Test 10:19:03 virus screening of Medicine (procedure) [code = 692557656] Future Scheduled 2021-05-08 ZOSTER VACCINE (1 of 2) [facility] Test 10:19:03 [code = ZOSTER VACCINE of dicine (1 of 2)] Future Scheduled 2021-05-08 MEDICARE AWV (Initial) [facility] [employer] Test 10:19:03 [code = MEDICARE AWV of Medi cine (Initial)] Future Scheduled 2021-05-08 FLU VACCINE > 6 MONTHS B [facility] Test 10:19:03 [code = FLU VACCINE > 6 of M edicine MONTHS] Future Scheduled 2021-05-08 BMI FOLLOW UP PLAN [facility] Test 10:19:03 [code = BMI FOLLOW UP of Med icine PLAN] Future Scheduled 2021-05-05 WOUND CARE INSTRUCTIONS Ordered: [facility] Test 16:34:35 [code = 08985] 05/05/2021 of Medicine Future Scheduled 2021-04-09 Screening for malignant [facility] Test 17:32:59 neoplasm of colon of Medicin e (procedure) [code = 834042468] Future Scheduled 2021-04-09 COVID-19 Vaccine (1) [facility] Test 17:32:59 [code = COVID-19 of Medicine Vaccine (1)] Future Scheduled 2021-04-09 Pneumococcal Combined [facility] Test 17:32:59 (1 of 2 - PPSV23) [code of M edicine = Pneumococcal Combined (1 of 2 - PPSV23)] Future Scheduled 2021-04-09 TETANUS SHOT (ADULT) [facility] Test 17:32:59 [code = TETANUS SHOT of Medi cine (ADULT)] Future Scheduled 2021-04-09 Diabetic foot [facility] Test 17:32:59 examination of Medicine (regime/therapy) [code = 588836734] Future Scheduled 2021-04-09 ANNUAL DIABETIC [facility] Test 17:32:59 RETINOPATHY SCREENING of Med icine [code = ANNUAL DIABETIC RETINOPATHY SCREENING] Future Scheduled 2021-04-09 Hepatitis C screening [facility] Test 17:32:59 (procedure) [code = of Medic ine 910164181] Future Scheduled 2021-04-09 Human immunodeficiency B [facility] Test 17:32:59 virus screening of Medicine (procedure) [code = 341375631] Future Scheduled 2021-04-09 ZOSTER VACCINE (1 of 2) [facility] Test 17:32:59 [code = ZOSTER VACCINE of Sc dicine (1 of 2)] Future Scheduled 2021-04-09 MEDICARE AWV (Initial) B [facility] Test 17:32:59 [code = MEDICARE AWV of Medi cine (Initial)] Future Scheduled 2021-04-09 FLU VACCINE > 6 MONTHS B [facility] Test 17:32:59 [code = FLU VACCINE > 6 of M edicine MONTHS] Future Scheduled 2021-04-09 BMI FOLLOW UP PLAN [facility] Test 17:32:59 [code = BMI FOLLOW UP of Med icine PLAN] Future Scheduled 2021-04-07 WOUND CARE INSTRUCTIONS Ordered: [facility] Test 16:17:20 [code = 59251] 04/07/2021 of Medicine Future Scheduled 2021-02-10 RI DEBRIDEMENT, SKIN, Ordered: [facility] Test 15:30:13 SUB-Q TISSUE,=<20 SQ CM 02/10/2021 of M edicine [code = 64056] Future Scheduled 2021-02-10 Screening for malignant [facility] Test 15:18:14 neoplasm of colon of Medicin e (procedure) [code = 443901650] Future Scheduled 2021-02-10 Pneumococcal Combined [facility] Test 15:18:14 (1 of 2 - PPSV23) [code of M edicine = Pneumococcal Combined (1 of 2 - PPSV23)] Future Scheduled 2021-02-10 COVID-19 Vaccine (1) [facility] Test 15:18:14 [code = COVID-19 of Medicine Vaccine (1)] Future Scheduled 2021-02-10 TETANUS SHOT (ADULT) [facility] Test 15:18:14 [code = TETANUS SHOT of Medi cine (ADULT)] Future Scheduled 2021-02-10 Diabetic foot [facility] Test 15:18:14 examination of Medicine (regime/therapy) [code = 405224695] Future Scheduled 2021-02-10 ANNUAL DIABETIC [facility] Test 15:18:14 RETINOPATHY SCREENING of Med icine [code = ANNUAL DIABETIC RETINOPATHY SCREENING] Future Scheduled 2021-02-10 Hepatitis C screening [facility] Test 15:18:14 (procedure) [code = of Medic ine 808555249] Future Scheduled 2021-02-10 Human immunodeficiency B [facility] Test 15:18:14 virus screening of Medicine (procedure) [code = 455544017] Future Scheduled 2021-02-10 ZOSTER VACCINE (1 of 2) [facility] Test 15:18:14 [code = ZOSTER VACCINE of Me dicine (1 of 2)] Future Scheduled 2021-02-10 MEDICARE AWV (Initial) B [facility] Test 15:18:14 [code = MEDICARE AWV of Medi cine (Initial)] Future Scheduled 2021-02-10 FLU VACCINE > 6 MONTHS B [facility] Test 15:18:14 [code = FLU VACCINE > 6 of M edicine MONTHS] Future Scheduled 2021-02-10 BMI FOLLOW UP PLAN [facility] Test 15:18:14 [code = BMI FOLLOW UP of Med icine PLAN] Future Scheduled 2021-01-20 US ARTERIAL LEGS 1 Occurrences [facility] Test 11:28:17 BILATERAL [code = starting of Medicin e 82154-5] 01/20/2021 until 01/20/2022 Future Scheduled 2021-01-20 Screening for malignant [facility] Test 11:24:40 neoplasm of colon of Medicin e (procedure) [code = 899279759] Future Scheduled 2021-01-20 Pneumococcal Combined [facility] Test 11:24:40 (1 of 2 - PPSV23) [code of M edicine = Pneumococcal Combined (1 of 2 - PPSV23)] Future Scheduled 2021-01-20 COVID-19 Vaccine (1) [facility] Test 11:24:40 [code = COVID-19 of Medicine Vaccine (1)] Future Scheduled 2021-01-20 TETANUS SHOT (ADULT) [facility] Test 11:24:40 [code = TETANUS SHOT of Medi cine (ADULT)] Future Scheduled 2021-01-20 Diabetic foot [facility] Test 11:24:40 examination of Medicine (regime/therapy) [code = 571305460] Future Scheduled 2021-01-20 ANNUAL DIABETIC [facility] Test 11:24:40 RETINOPATHY SCREENING of Med icine [code = ANNUAL DIABETIC RETINOPATHY SCREENING] Future Scheduled 2021-01-20 Hepatitis C screening [facility] Test 11:24:40 (procedure) [code = of Medic ine 251185697] Future Scheduled 2021-01-20 Human immunodeficiency B [facility] Test 11:24:40 virus screening of Medicine (procedure) [code = 885868627] Future Scheduled 2021-01-20 ZOSTER VACCINE (1 of 2) [facility] Test 11:24:40 [code = ZOSTER VACCINE of Sc dicine (1 of 2)] Future Scheduled 2021-01-20 MEDICARE AWV (Initial) B [facility] [employer] Test 11:24:40 [code = MEDICARE AWV of Medi cine (Initial)] Future Scheduled 2021-01-20 FLU VACCINE > 6 MONTHS B [facility] [employer] Test 11:24:40 [code = FLU VACCINE > 6 of M edicine MONTHS] Future Scheduled 2021-01-20 BMI FOLLOW UP PLAN [facility] Test 11:24:40 [code = BMI FOLLOW UP of Med icine PLAN] Future Scheduled 2021-01-04 RI DEBRIDEMENT, SKIN, Ordered: [facility] Test 21:20:15 SUB-Q TISSUE,=<20 SQ CM 01/04/2021 of edicine [code = 11990] Future Scheduled 2021-01-04 Screening for malignant [facility] Test 21:13:01 neoplasm of colon of Medicin e (procedure) [code = 850366056] Future Scheduled 2021-01-04 COVID-19 Vaccine (1) [facility] Test 21:13:01 [code = COVID-19 of Medicine Vaccine (1)] Future Scheduled 2021-01-04 TETANUS SHOT (ADULT) [facility] Test 21:13:01 [code = TETANUS SHOT of Medi cine (ADULT)] Future Scheduled 2021-01-04 Diabetic foot [facility] Test 21:13:01 examination of Medicine (regime/therapy) [code = 124904236] Future Scheduled 2021-01-04 ANNUAL DIABETIC [facility] Test 21:13:01 RETINOPATHY SCREENING of Med icine [code = ANNUAL DIABETIC RETINOPATHY SCREENING] Future Scheduled 2021-01-04 Hepatitis C screening [facility] Test 21:13:01 (procedure) [code = of Medic ine 245948525] Future Scheduled 2021-01-04 Human immunodeficiency B [facility] Test 21:13:01 virus screening of Medicine (procedure) [code = 942246881] Future Scheduled 2021-01-04 ZOSTER VACCINE (1 of 2) [facility] Test 21:13:01 [code = ZOSTER VACCINE of Sc dicine (1 of 2)] Future Scheduled 2021-01-04 MEDICARE AWV (Initial) B [facility] Test 21:13:01 [code = MEDICARE AWV of Medi cine (Initial)] Future Scheduled 2021-01-04 FLU VACCINE > 6 MONTHS B [facility] [employer] Test 21:13:01 [code = FLU VACCINE > 6 of edicine MONTHS] Future Scheduled 2021-01-04 BMI FOLLOW UP PLAN [facility] Test 21:13:01 [code = BMI FOLLOW UP of Med icine PLAN] Future Scheduled 2020-12-03 RI DEBRIDEMENT OPEN Ordered: [employer] Test 09:58:36 WOUND 20 SQ CM< [code = 12/03/2020 of edicine 19713] Future Scheduled 2020-12-03 RI DEBRIDEMENT OPEN Ordered: [employer] Test 09:58:36 WOUND 20 SQ CM< [code = 12/03/2020 of M edicine 71205] Future Scheduled 2020-12-03 Screening for malignant [facility] Test 09:53:42 neoplasm of colon of Medicin e (procedure) [code = 274762632] Future Scheduled 2020-12-03 COVID-19 Vaccine (1) [facility] Test 09:53:42 [code = COVID-19 of Medicine Vaccine (1)] Future Scheduled 2020-12-03 TETANUS SHOT (ADULT) [facility] Test 09:53:42 [code = TETANUS SHOT of Medi cine (ADULT)] Future Scheduled 2020-12-03 Diabetic foot [facility] Test 09:53:42 examination of Medicine (regime/therapy) [code = 894460797] Future Scheduled 2020-12-03 ANNUAL DIABETIC [facility] Test 09:53:42 RETINOPATHY SCREENING of Med icine [code = ANNUAL DIABETIC RETINOPATHY SCREENING] Future Scheduled 2020-12-03 Hepatitis C screening [facility] Test 09:53:42 (procedure) [code = of Medic ine 778970918] Future Scheduled 2020-12-03 Human immunodeficiency B [facility] Test 09:53:42 virus screening of Medicine (procedure) [code = 248287906] Future Scheduled 2020-12-03 ZOSTER VACCINE (1 of 2) [facility] Test 09:53:42 [code = ZOSTER VACCINE of Me dicine (1 of 2)] Future Scheduled 2020-12-03 MEDICARE AWV (Initial) B [facility] Test 09:53:42 [code = MEDICARE AWV of Medi cine (Initial)] Future Scheduled 2020-12-03 FLU VACCINE > 6 MONTHS B [facility] [employer] Test 09:53:42 [code = FLU VACCINE > 6 of M edicine MONTHS] Future Scheduled 2020-12-03 BMI FOLLOW UP PLAN [facility] [employer] Test 09:53:42 [code = BMI FOLLOW UP of Med icine PLAN] Future Scheduled 2020-12-03 Screening for malignant [facility] Test 09:53:42 neoplasm of colon of Medicin e (procedure) [code = 262443966] Future Scheduled 2020-12-03 COVID-19 Vaccine (1) [facility] Test 09:53:42 [code = COVID-19 of Medicine Vaccine (1)] Future Scheduled 2020-12-03 TETANUS SHOT (ADULT) [facility] Test 09:53:42 [code = TETANUS SHOT of Medi cine (ADULT)] Future Scheduled 2020-12-03 Diabetic foot [facility] Test 09:53:42 examination of Medicine (regime/therapy) [code = 460121998] Future Scheduled 2020-12-03 ANNUAL DIABETIC [facility] Test 09:53:42 RETINOPATHY SCREENING of Med icine [code = ANNUAL DIABETIC RETINOPATHY SCREENING] Future Scheduled 2020-12-03 Hepatitis C screening [facility] Test 09:53:42 (procedure) [code = of Medic ine 752830911] Future Scheduled 2020-12-03 Human immunodeficiency B [facility] Test 09:53:42 virus screening of Medicine (procedure) [code = 633483303] Future Scheduled 2020-12-03 ZOSTER VACCINE (1 of 2) [facility] Test 09:53:42 [code = ZOSTER VACCINE of Sc dicine (1 of 2)] Future Scheduled 2020-12-03 MEDICARE AWV (Initial) B [facility] Test 09:53:42 [code = MEDICARE AWV of [employer] (Initial)] Future Scheduled 2020-12-03 FLU VACCINE > 6 MONTHS [facility] Test 09:53:42 [code = FLU VACCINE > 6 of edicine MONTHS] Future Scheduled 2020-12-03 BMI FOLLOW UP PLAN [facility] [employer] Test 09:53:42 [code = BMI FOLLOW UP of Med icine PLAN] Future Scheduled 2020-11-25 WOUND CARE INSTRUCTIONS Ordered: [facility] Test 16:09:42 [code = 44948] 11/25/2020 of Medicine Future Scheduled 2020-11-25 WOUND CARE INSTRUCTIONS Ordered: [facility] Test 16:09:42 [code = 16650] 11/25/2020 of Medicine Future Scheduled 2020-11-03 RI DRAINAGE OF Ordered: [facility] [employer] Test 12:26:16 HEMATOMA/FLUID [code = 11/03/2020 of Me dicine 72519] Future Scheduled 2020-11-03 RI DEBRIDEMENT OPEN Ordered: [facility] [employer] Test 12:26:16 WOUND 20 SQ CM< [code = 11/03/2020 of M edicine 47364] Future Scheduled 2020-11-03 Hepatitis C screening [employer] Test 09:36:18 (procedure) [code = of Medic ine 228728206] Future Scheduled 2020-11-03 Human immunodeficiency B [facility] Test 09:36:18 virus screening of Medicine (procedure) [code = 569257906] Future Scheduled 2020-11-03 ZOSTER VACCINE (1 of 2) [facility] Test 09:36:18 [code = ZOSTER VACCINE of Sc dicine (1 of 2)] Future Scheduled 2020-11-03 MEDICARE AWV (Initial) [facility] [employer] Test 09:36:18 [code = MEDICARE AWV of Medi cine (Initial)] Future Scheduled 2020-11-03 FLU VACCINE > 6 MONTHS [facility] Test 09:36:18 [code = FLU VACCINE > 6 of M edicine MONTHS] Future Scheduled 2020-11-03 BMI FOLLOW UP PLAN [facility] [employer] Test 09:36:18 [code = BMI FOLLOW UP of Med icine PLAN] Future Scheduled 2020-11-03 Screening for malignant [facility] Test 09:36:18 neoplasm of colon of Medicin e (procedure) [code = 694509324] Future Scheduled 2020-11-03 COVID-19 Vaccine (1) [facility] Test 09:36:18 [code = COVID-19 of Medicine Vaccine (1)] Future Scheduled 2020-11-03 TETANUS SHOT (ADULT) [facility] Test 09:36:18 [code = TETANUS SHOT of Medi cine (ADULT)] Future Scheduled 2020-11-03 Diabetic foot [facility] Test 09:36:18 examination of Medicine (regime/therapy) [code = 892120525] Future Scheduled 2020-11-03 ANNUAL DIABETIC [facility] Test 09:36:18 RETINOPATHY SCREENING of Med icine [code = ANNUAL DIABETIC RETINOPATHY SCREENING] Future Scheduled 2020-10-28 WOUND CARE INSTRUCTIONS Ordered: [facility] Test 17:23:33 [code = 56943] 10/28/2020 of Medicine Future Scheduled 2020-10-26 Screening for malignant [facility] Test 23:34:24 neoplasm of colon of Medicin e (procedure) [code = 379086310] Future Scheduled 2020-10-26 COVID-19 Vaccine (1) [facility] Test 23:34:24 [code = COVID-19 of Medicine Vaccine (1)] Future Scheduled 2020-10-26 TETANUS SHOT (ADULT) [facility] Test 23:34:24 [code = TETANUS SHOT of Medi cine (ADULT)] Future Scheduled 2020-10-26 Diabetic foot [facility] Test 23:34:24 examination of Medicine (regime/therapy) [code = 982785856] Future Scheduled 2020-10-26 ANNUAL DIABETIC [facility] Test 23:34:24 RETINOPATHY SCREENING of Med icine [code = ANNUAL DIABETIC RETINOPATHY SCREENING] Future Scheduled 2020-10-26 Hepatitis C screening [facility] Test 23:34:24 (procedure) [code = of Medic ine 385541490] Future Scheduled 2020-10-26 Human immunodeficiency B [facility] Test 23:34:24 virus screening of Medicine (procedure) [code = 952289327] Future Scheduled 2020-10-26 ZOSTER VACCINE (1 of 2) [facility] Test 23:34:24 [code = ZOSTER VACCINE of Me dicine (1 of 2)] Future Scheduled 2020-10-26 MEDICARE AWV (Initial) B [facility] Test 23:34:24 [code = MEDICARE AWV of Medi cine (Initial)] Future Scheduled 2020-10-26 FLU VACCINE > 6 MONTHS B [facility] [employer] Test 23:34:24 [code = FLU VACCINE > 6 of M edicine MONTHS] Future Scheduled 2020-10-26 BMI FOLLOW UP PLAN [facility] Test 23:34:24 [code = BMI FOLLOW UP of Med icine PLAN] Future Scheduled 2020-09-02 Screening for malignant [facility] Test 18:54:49 neoplasm of colon of Medicin e (procedure) [code = 215655427] Future Scheduled 2020-09-02 COVID-19 Vaccine (1) [facility] Test 18:54:49 [code = COVID-19 of Medicine Vaccine (1)] Future Scheduled 2020-09-02 TETANUS SHOT (ADULT) [facility] Test 18:54:49 [code = TETANUS SHOT of Medi cine (ADULT)] Future Scheduled 2020-09-02 Diabetic foot [facility] Test 18:54:49 examination of Medicine (regime/therapy) [code = 054105899] Future Scheduled 2020-09-02 ANNUAL DIABETIC [facility] Test 18:54:49 RETINOPATHY SCREENING of Med icine [code = ANNUAL DIABETIC RETINOPATHY SCREENING] Future Scheduled 2020-09-02 Hepatitis C screening [facility] Test 18:54:49 (procedure) [code = of Medic ine 570410001] Future Scheduled 2020-09-02 Human immunodeficiency [facility] [employer] Test 18:54:49 virus screening of Medicine (procedure) [code = 436267738] Future Scheduled 2020-09-02 ZOSTER VACCINE (1 of 2) [facility] Test 18:54:49 [code = ZOSTER VACCINE of Me dicine (1 of 2)] Future Scheduled 2020-09-02 MEDICARE AWV (Initial) [facility] [employer] Test 18:54:49 [code = MEDICARE AWV of Medi cine (Initial)] Future Scheduled 2020-09-02 FLU VACCINE > 6 MONTHS [facility] Test 18:54:49 [code = FLU VACCINE > 6 of M edicine MONTHS] Future Scheduled 2020-09-02 BMI FOLLOW UP PLAN [facility] [employer] Test 18:54:49 [code = BMI FOLLOW UP of Med icine PLAN] Future Scheduled 2020-08-19 WOUND CARE INSTRUCTIONS Ordered: [facility] Test 16:42:50 [code = 65268] 08/19/2020 of Medicine Future Scheduled 2020-08-10 RI DEBRIDEMENT, SKIN, Ordered: [facility] Test 12:01:06 SUB-Q 08/10/2020 of Medicine TISSUE,MUSCLE,=<20 SQ CM [code = 87678] Future Scheduled 2020-08-10 Screening for malignant [facility] Test 11:57:36 neoplasm of colon of Medicin e (procedure) [code = 057097411] Future Scheduled 2020-08-10 COVID-19 Vaccine (1) [facility] Test 11:57:36 [code = COVID-19 of Medicine Vaccine (1)] Future Scheduled 2020-08-10 TETANUS SHOT (ADULT) [facility] Test 11:57:36 [code = TETANUS SHOT of Medi cine (ADULT)] Future Scheduled 2020-08-10 Diabetic foot [facility]ge Test 11:57:36 examination of Medicine (regime/therapy) [code = 230766607] Future Scheduled 2020-08-10 ANNUAL DIABETIC [facility]lege Test 11:57:36 RETINOPATHY SCREENING of Med icine [code = ANNUAL DIABETIC RETINOPATHY SCREENING] Future Scheduled 2020-08-10 Hepatitis C screening [facility] or [place] Test 11:57:36 (procedure) [code = of Medic ine 164684522] Future Scheduled 2020-08-10 Human immunodeficiency B [facility] Test 11:57:36 virus screening of Medicine (procedure) [code = 274296608] Future Scheduled 2020-08-10 ZOSTER VACCINE (1 of 2) [facility] Test 11:57:36 [code = ZOSTER VACCINE of Me dicine (1 of 2)] Future Scheduled 2020-08-10 MEDICARE AWV (Initial) [facility] Test 11:57:36 [code = MEDICARE AWV of Medi cine (Initial)] Future Scheduled 2020-08-10 FLU VACCINE > 6 MONTHS [facility] Test 11:57:36 [code = FLU VACCINE > 6 of M edicine MONTHS] Future Scheduled 2020-08-10 BMI FOLLOW UP PLAN [facility] r [place] Test 11:57:36 [code = BMI FOLLOW UP of Med icine PLAN] Future Scheduled 2020-07-30 BMI FOLLOW UP PLAN [facility] r [place] Test 15:31:06 [code = BMI FOLLOW UP of Med icine PLAN] Future Scheduled 2020-07-30 Screening for malignant [facility] Test 08:53:16 neoplasm of colon of Medicin e (procedure) [code = 713331148] Future Scheduled 2020-07-30 COVID-19 Vaccine (1) [facility] Test 08:53:16 [code = COVID-19 of Medicine Vaccine (1)] Future Scheduled 2020-07-30 TETANUS SHOT (ADULT) [facility] Test 08:53:16 [code = TETANUS SHOT of Medi cine (ADULT)] Future Scheduled 2020-07-30 Diabetic foot [facility] [employer] Test 08:53:16 examination of Medicine (regime/therapy) [code = 902026248] Future Scheduled 2020-07-30 ANNUAL DIABETIC [facility] Test 08:53:16 RETINOPATHY SCREENING of Med icine [code = ANNUAL DIABETIC RETINOPATHY SCREENING] Future Scheduled 2020-07-30 Hepatitis C screening Ba [facility] Test 08:53:16 (procedure) [code = of Medic ine 411243895] Future Scheduled 2020-07-30 Human immunodeficiency B [facility] Test 08:53:16 virus screening of Medicine (procedure) [code = 261891236] Future Scheduled 2020-07-30 ZOSTER VACCINE (1 of 2) [employer] Test 08:53:16 [code = ZOSTER VACCINE of Me dillon (1 of 2)] Future Scheduled 2020-07-30 MEDICARE [...] edicine MONTHS] Future Scheduled COLON CANCER SCREENING: [facility] [employer] Test COLONOSCOPY [code = of Medic ine COLON CANCER SCREENING: COLONOSCOPY] Future Scheduled TETANUS SHOT (ADULT) [employer] [place] [employer] Test [code = TETANUS SHOT of Medi cine (ADULT)] Future Scheduled Diabetic foot [facility] [employer] Test examination of Medicine (regime/therapy) [code = 180650519] Future Scheduled ANNUAL DIABETIC [facility] [employer]lege [...] 6 of M edicine MONTHS] Future Scheduled RI DEBRIDEMENT OPEN Ordered: [employer] Test WOUND 20 SQ CM< [code = 07/24/2019 of edicine 31270] Future Scheduled COLON CANCER SCREENING: [facility] Test COLONOSCOPY [code = of Medic ine COLON CANCER SCREENING: COLONOSCOPY] Future Scheduled TETANUS SHOT (ADULT) [employer] [place] [employer] Test [code = TETANUS SHOT of Medi cine (ADULT)] Future Scheduled Diabetic foot [facility] [employer] Test examination of Medicine (regime/therapy) [code = 458768694] Future Scheduled ANNUAL DIABETIC [facility] [employer] [...] > 6 of edicine MONTHS] Future Scheduled BMI FOLLOW UP PLAN [employer] Test [code = BMI FOLLOW UP of Med icine PLAN] Future Scheduled RI DEBRIDEMENT OPEN Ordered: [employer] Test WOUND 20 SQ CM< [code = 08/07/2019 [facility]] Future Scheduled COLON CANCER SCREENING: [facility] [employer] Test COLONOSCOPY [code = of Medic ine COLON CANCER SCREENING: COLONOSCOPY] Future Scheduled TETANUS SHOT (ADULT) [employer] [place] [employer] Test [code = TETANUS SHOT of Medi cine (ADULT)] Future Scheduled Diabetic foot [facility] [employer] Test examination of Medicine (regime/therapy) [code = 913007226] Future Scheduled ANNUAL DIABETIC [facility] [employer] Test RETINOPATHY SCREENING of [...] > 6 of edicine MONTHS] Future Scheduled BMI FOLLOW UP PLAN [employer] Test [code = BMI FOLLOW UP of Med icine PLAN] Future Scheduled RI DEBRIDEMENT OPEN Ordered: [employer] Test WOUND 20 SQ CM< [code = 08/22/2019 [facility] 73276] Future Scheduled RI POST-OP FOLLOW-UP Ordered: [place] [employer] Test VISIT [code = 03257] 08/22/2019 of Medi cine Future Scheduled SUTURE REMOVAL KIT Ordered: [employer] Test [code = NOCPT] 09/01/2019 of Medicine Future Scheduled COLON CANCER SCREENING: [employer] Test COLONOSCOPY [code = of Medic ine COLON CANCER SCREENING: COLONOSCOPY] Future Scheduled TETANUS SHOT (ADULT) [employer] [place] [employer] Test [code = TETANUS SHOT of Medi cine (ADULT)] Future Scheduled Diabetic foot [employer] Test examination of Medicine (regime/therapy) [code = 463226891] Future Scheduled ANNUAL DIABETIC [facility] [employer] Test RETINOPATHY SCREENING of [...] SCREENING: COLONOSCOPY] Future Scheduled TETANUS SHOT (ADULT) [employer] [place] [employer] Test [code = TETANUS SHOT of Medi cine (ADULT)] Future Scheduled Diabetic foot [employer] Test examination of Medicine (regime/therapy) [code = 761310218] Future Scheduled ANNUAL DIABETIC [facility] [...] icine PLAN] Future Scheduled COLON CANCER SCREENING: [facility] [employer] Test COLONOSCOPY [code = of Medic ine COLON CANCER SCREENING: COLONOSCOPY] Future Scheduled TETANUS SHOT (ADULT) [employer] [place] [employer] Test [code = TETANUS SHOT of Medi cine (ADULT)] Future Scheduled Diabetic foot [facility] Test examination of Medicine (regime/therapy) [code = 096986410] Future Scheduled ANNUAL DIABETIC [facility] [employer] Test RETINOPATHY SCREENING of [...] UP of Med icine PLAN] Future Scheduled RI DEBRIDEMENT, SKIN, Ordered: [employer] Test SUB-Q TISSUE,=<20 SQ CM 10/04/2019 of M edicine [code = 86149] Future Scheduled COLON CANCER SCREENING: [facility] [employer] Test COLONOSCOPY [code = of Medic ine COLON CANCER SCREENING: COLONOSCOPY] Future Scheduled TETANUS SHOT (ADULT) [employer] [place] [employer] Test [code = TETANUS SHOT of Medi cine (ADULT)] Future Scheduled Diabetic foot [facility] [employer] Test examination of Medicine (regime/therapy) [code = 987923307] Future Scheduled ANNUAL DIABETIC [facility] [employer] [...] > 6 of edicine MONTHS] Future Scheduled BMI FOLLOW UP PLAN [employer] Test [code = BMI FOLLOW UP of Med icine PLAN] Future Scheduled RI POST-OP FOLLOW-UP Ordered: [place] [employer] Test VISIT [code = 79962] 12/06/2019 of Medi cine Future Scheduled COLON CANCER SCREENING: [facility] [employer] Test COLONOSCOPY [code = of Medic ine COLON CANCER SCREENING: COLONOSCOPY] Future Scheduled TETANUS SHOT (ADULT) [employer] [place] [employer] Test [code = TETANUS SHOT of Medi cine (ADULT)] Future Scheduled Diabetic foot [facility] [employer] Test examination of Medicine (regime/therapy) [code = 001261446] Future Scheduled ANNUAL DIABETIC [facility] [employer] Test RETINOPATHY SCREENING of Med icine [code = ANNUAL DIABETIC RETINOPATHY SCREENING] Future Scheduled HEPATITIS C SCREENING [employer] Test [code = HEPATITIS C of Medic ine SCREENING] Future Scheduled HIV SCREENING [code = [employer] [facility] HIV SCREENING] of Medicine Future Scheduled ZOSTER VACCINE (1 of 2) [facility] Test [code = ZOSTER VACCINE [...] SCREENING: COLONOSCOPY] Future Scheduled TETANUS SHOT (ADULT) [employer] [place] [employer] Test [code = TETANUS SHOT of Medi cine (ADULT)] Future Scheduled Diabetic foot [facility] [employer] Test examination of Medicine (regime/therapy) [code = 678323808] Future Scheduled ANNUAL DIABETIC [facility] [employer] Test RETINOPATHY SCREENING of [...] icine PLAN] Future Scheduled COLON CANCER SCREENING: [facility] [employer] Test COLONOSCOPY [code = of Medic ine COLON CANCER SCREENING: COLONOSCOPY] Future Scheduled TETANUS SHOT (ADULT) [employer] [place] [employer] Test [code = TETANUS SHOT of Medi cine (ADULT)] Future Scheduled Diabetic foot [employer] Test examination of Medicine (regime/therapy) [code = 844128453] Future Scheduled ANNUAL DIABETIC [facility] [employer] Test RETINOPATHY SCREENING of Med icine [code = ANNUAL DIABETIC RETINOPATHY SCREENING] Future Scheduled HEPATITIS C SCREENING [employer] Test [code = HEPATITIS C of Medic ine SCREENING] Future Scheduled HIV SCREENING [code = [employer] [facility] HIV SCREENING] of Medicine Future Scheduled ZOSTER VACCINE (1 of 2) [facility] [employer] Test [code = ZOSTER VACCINE [...] icine PLAN] Future Scheduled COLON CANCER SCREENING: [facility] [employer] Test COLONOSCOPY [code = of Medic ine COLON CANCER SCREENING: COLONOSCOPY] Future Scheduled COVID-19 Vaccine [facility] [employer] Test Evaluation [code = of Medici ne COVID-19 Vaccine Evaluation] Future Scheduled TETANUS SHOT (ADULT) [place] [employer] Test [code = TETANUS SHOT of Medi cine (ADULT)] Future Scheduled Diabetic foot [facility] [employer] Test examination of Medicine (regime/therapy) [code = 513925530] Future Scheduled ANNUAL DIABETIC [facility] [employer] Test RETINOPATHY SCREENING of Med icine [code = ANNUAL DIABETIC RETINOPATHY SCREENING] Future Scheduled HEPATITIS C SCREENING [employer] Test [code = HEPATITIS C of Medic ine SCREENING] Future Scheduled HIV SCREENING [code = [employer] HIV SCREENING] of Medicine Future Scheduled ZOSTER VACCINE (1 of 2) [facility] [employer] Test [code = ZOSTER VACCINE [...] icine PLAN] Future Scheduled COLON CANCER SCREENING: [facility] [employer] Test COLONOSCOPY [code = of Medic ine COLON CANCER SCREENING: COLONOSCOPY] Future Scheduled COVID-19 Vaccine [facility] [employer] Test Evaluation [code = of Medici ne COVID-19 Vaccine Evaluation] Future Scheduled TETANUS SHOT (ADULT) [employer] [place] [employer] Test [code = TETANUS SHOT of Medi cine (ADULT)] Future Scheduled Diabetic foot [employer] Test examination of Medicine (regime/therapy) [code = 345268277] Future Scheduled ANNUAL DIABETIC [employer] Test RETINOPATHY SCREENING of Med icine [code = ANNUAL DIABETIC RETINOPATHY SCREENING] Future Scheduled HEPATITIS C SCREENING [employer] Test [code = HEPATITIS C of Medic ine SCREENING] Future Scheduled HIV SCREENING [code = [employer] [facility] HIV SCREENING] of Medicine Future Scheduled ZOSTER VACCINE (1 of 2) [facility] [employer] Test [code = ZOSTER VACCINE [...] CANCER SCREENING: COLONOSCOPY] Future Scheduled COVID-19 Vaccine [facility] [employer] Test Evaluation [code = of Medici ne COVID-19 Vaccine Evaluation] Future Scheduled TETANUS SHOT (ADULT) [employer] [place] [employer] Test [code = TETANUS SHOT of Medi cine (ADULT)] Future Scheduled Diabetic foot [facility] [employer] Test examination of Medicine (regime/therapy) [code = 804375988] Future Scheduled ANNUAL DIABETIC [facility] [employer] [...] > 6 of edicine MONTHS] Future Scheduled BMI FOLLOW UP PLAN [employer] Test [code = BMI FOLLOW UP of Med icine PLAN] Future Scheduled RI DEBRIDEMENT, SKIN, Ordered: [employer] [facility] SUB-Q TISSUE,=<20 SQ CM 05/25/2020 of M edicine [code = 80127] Future Scheduled Screening for malignant [facility] [employer] Test neoplasm of colon of Medicin e (procedure) [code = 412632266] Future Scheduled TETANUS SHOT (ADULT) [place] [employer] Test [code = TETANUS SHOT of Medi cine (ADULT)] Future Scheduled COVID-19 Vaccine (1) [employer] [place] [employer] Test [code = COVID-19 of Medicine Vaccine (1)] Future Scheduled Diabetic foot [employer] Test examination of Medicine (regime/therapy) [code = 946602193] Future Scheduled ANNUAL DIABETIC [facility] [employer] Test RETINOPATHY SCREENING of Med icine [code = ANNUAL DIABETIC RETINOPATHY SCREENING] Future Scheduled Hepatitis C screening [employer] Test (procedure) [code = of Medic ine 705534031] Future Scheduled Human immunodeficiency [employer] Test virus screening of Medicine (procedure) [code = 259062434] Future Scheduled ZOSTER VACCINE (1 of 2) [...] colon of Medicin e (procedure) [code = 326342425] Future Scheduled TETANUS SHOT (ADULT) [employer] [place] [employer] Test [code = TETANUS SHOT of Medi cine (ADULT)] Future Scheduled COVID-19 Vaccine (1) [employer] [place] [employer] Test [code = COVID-19 of Medicine Vaccine (1)] Future Scheduled Diabetic foot [facility] [employer] Test examination of Medicine (regime/therapy) [code = 965964815] Future Scheduled ANNUAL DIABETIC [facility] [employer] Test RETINOPATHY SCREENING of Med icine [code = ANNUAL DIABETIC RETINOPATHY SCREENING] Future Scheduled Hepatitis C screening [employer] [facility] (procedure) [code = of Medic ine 015689860] Future Scheduled Human immunodeficiency [employer] Test virus screening of Medicine (procedure) [code = 763770981] Future Scheduled ZOSTER VACCINE (1 of 2) [facility] [employer] Test [code = ZOSTER VACCINE [...] colon of Medicin e (procedure) [code = 413440433] Future Scheduled TETANUS SHOT (ADULT) [place] [employer] Test [code = TETANUS SHOT of Medi cine (ADULT)] Future Scheduled COVID-19 Vaccine (1) [place] [employer] Test [code = COVID-19 of Medicine Vaccine (1)] Future Scheduled Diabetic foot [facility] [employer] Test examination of Medicine (regime/therapy) [code = 892485688] Future Scheduled ANNUAL DIABETIC [facility] [employer] Test RETINOPATHY SCREENING of Med icine [code = ANNUAL DIABETIC RETINOPATHY SCREENING] Future Scheduled Hepatitis C screening [employer] Test (procedure) [code = of Medic ine 238789086] Future Scheduled [facility] Test virus screening of Medicine (procedure) [code = 259720621] Future Scheduled ZOSTER VACCINE (1 of 2) [facility] [employer] Test [code = ZOSTER VACCINE [...] edicine MONTHS] Future Scheduled COLON CANCER SCREENING: [facility] Test COLONOSCOPY [code = of Medic ine COLON CANCER SCREENING: COLONOSCOPY] Future Scheduled TETANUS SHOT (ADULT) [place] [employer] Test [code = TETANUS SHOT of Medi cine (ADULT)] Future Scheduled Diabetic foot [facility] [employer] Test examination of Medicine (regime/therapy) [code = 372602835] Future Scheduled ANNUAL DIABETIC [facility] [employer] Test RETINOPATHY SCREENING of [...] Department ID 2021-04-02 Outpatient READMISSIO ENCCLR ENCCLR [id number] ENCCLR 11:32:21 N 2021-04-02 Outpatient 3 [facility] ENCPL IBAN 2020 ENCPL 11:23:39 [facility] 2021-04-02 Outpatient 3 [facility] ENCPL IBAN 2020 ENCPL 11:23:15 Mariano patel [facility] 2021-04-02 Outpatient 3 [id number] ENCPL REF ENCPL 11:20:27 1112021-04-02 Outpatient 3 [id number] ENCPL REF [id number] ENCPL 10:40:10 0925 2021-04-02 Outpatient 3 [id number] ENCPL REF [id number] ENCPL 10:37:41 0919 2021-04-02 Outpatient 3 [id number] ENCPL REF [id number] ENCPL 10:37:29 0918 2021-04-02 Outpatient 3 [id number] ENCSL REF [id number] ENCSL 10:29:18 18252 2021-04-02 Outpatient NEW ENCCLR ENCCLR [id number] EN CCLR 09:45:29 ADMISSION 2021-04-02 Outpatient 3 [facility] ENCPL NACHO [id number] ENCPL 09:40:19 Pola patel2 Anavelfransisco 2021-04-02 Outpatient 3 [id number] ENCPL REF ENCPL 09:39:18 0420 2021-04-02 Outpatient 3 [id number] ENCPL REF ENCPL 09:39:08 0419 2021-04-01 Outpatient [place], STLMLC STLMLC [id number] Common 12:55:[address] 2020-12-13 Outpatient ROSS, [facility] Surgery [id number] [facility] 08:44:41 [place] 2020-12-12 Inpatient ROSS, [facility] Surgery [id number] [facility] 22:13:11 [place] 2020-12-10 Outpatient ROSS, [facility] Surgery [id number] [facility] 02:17:18 [place] 2020-12-09 Outpatient ROSS, [facility] Surgery [id number] [facility] 22:29:35 [place] 2020-03-27 Inpatient 3 [facility] ENCPL IBAN [id number] ENCPL 12:12:00 amanda, 0121 [place] 2019-12-05 Inpatient UR NEISHA [facility] General Med [id number] [facility] 20:39:00 MARIO 2019-11-05 Inpatient ER RANDY [facility] Podiatry [id number] [facility] 20:36:00 [place] 2019-06-14 Inpatient SLE SLE [id number] [facility] 08:29:14 [id number] 2021-10-20 2021-10-20 Transition CHRIS Mcmahan 1.2.840.114 [id number] Univers 00:00:00 00:00:00 of Care Olayinka CARDOZA 350.1.13.10 Cathie 4.2.7.2.686 [facility] [id number] [facility] [address] 2021-10-19 2021-10-19 Outpatient X SILAS [facility] [id number] Univers 15:23:00 17:58:00 LYLE ity of [facility] 2021-10-19 2021-10-19 Emergency Oralia Martines [facility] 1.2.840 .114 [id number] Univers 15:23:00 17:58:00 William Canalesi CAROLA 350.1.13.10 [facility] 4.2.7.2.686 [facility] [id number] [facility] [address] 2021-09-08 2021-09-08 Office RYAN CLOUD 1.2.840.114 [id number] [facility] 16:02:04 16:02:04 Visit STAR AMBULATOR 350.1.13.21 College Y 0.2.7.2.686 of [id number] [facility] greyson 825 e 2021-08-04 2021-08-04 Office RYAN Cloud 1.2.840.114 [id number] [facility] 16:00:00 16:30:00 Visit Star Bean AMBULATOR 350.1.13.21 College Y 0.2.7.2.686 of [id number] [facility] greyson 825 e 2021-08-04 2021-08-04 Office RYAN CASTAÑEDA 1.2.840.114 [id number] [facility] 15:28:48 15:28:48 Visit CLARK AMBULATOR 350.1.13.21 College Y 0.2.7.2.686 of [id number] [facility] greyson 825 e 2021-08-04 2021-08-04 Outpatient BCM BC [id number] [facility] 15:27:47 15:27:47 Amira doherty of Medicin e 2021-07-21 2021-07-21 Office RYAN CASTAÑEDA 1.2.840.114 [id number] [facility] 09:27:01 11:52:25 Visit CLARK AMBULATOR 350.1.13.21 College Y 0.2.7.2.686 of [id number] [facility] greyson 825 e 2021-07-21 2021-07-21 Outpatient BCM [facility] [id number] [facility] 09:26:12 10:29:34 Colleg e of Medicin e 2021-07-01 2021-07-04 Inpatient DWAINE CROWDER [facility] 064 [id number] Yolyn 00:00:00 00:00:[address] 2021-05-26 2021-05-27 Office RYAN Cloud 1.2.840.114 [id number] [facility] 15:00:00 14:49:48 Visit Star A AMBULATOR 350.1.13.21 College Y 0.2.7.2.686 of [id number] [facility]yson 825 e 2021-05-05 2021-05-05 Office RYAN Cloud 1.2.840.114 [id number] [facility] 15:00:00 16:45:58 Visit Star A AMBULATOR 350.1.13.21 College Y 0.2.7.2.686 of [id number] [facility] greyson 825 e 2021-04-07 2021-04-07 Office RYAN CLOUD 1.2.840.114 [id number] [facility] 15:18:45 16:14:26 Visit STAR AMBULATOR 350.1.13.21 College Y 0.2.7.2.686 of [id number] [facility]yson 825 e 2021-02-26 2021-03-16 Inpatient ER ARIDERECK MilesR [facility] Surgery [id number] [facility] 21:33:00 17:48:00 2021-02-26 2021-02-26 [facility] [id number] [facility] 21:33:00 23:59:00 Colleg e of Medicin e 2021-02-03 2021-02-03 Office RYAN CLOUD 1.2.840.114 [id number] [facility] 13:14:52 16:33:05 Visit STAR AMB[employer]ATOR 350.1.13.21 College Y 0.2.7.2.686 of [id number] [facility]yson 825 e 2021-01-20 2021-01-20 Office RYAN Castañeda 1.2.840.114 [id number] [facility] 10:30:00 11:39:37 Visit Clark Wilson AMBULATOR 350.1.13.21 College Y 0.2.7.2.686 of [id number] [facility] 825 e 2021-01-20 2021-01-20 Outpatient [facility] [id number] [facility] 09:42:48 11:20:43 Colleg e of Medicin e 2020-12-23 2020-12-23 Office RYAN Cloud 1.2.840.114 [id number] [facility] 15:16:17 16:42:07 Visit Star A AMBULATOR 350.1.13.21 College Y 0.2.7.2.686 of [id number] [facility] 825 e 2020-11-25 2020-11-25 Office RYAN Cloud 1.2.840.114 [id number] [facility] 14:15:01 16:08:45 Visit Star A AMBULATOR 350.1.13.21 College Y 0.2.7.2.686 of [id number] [facility] 825 e 2020-10-28 2020-10-29 Office RYAN Cloud 1.2.840.114 [id number] [facility] 16:05:09 16:10:43 Visit Star A AMBULATOR 350.1.13.21 College Y 0.2.7.2.686 of [id number] [facility] 825 e 2020-10-14 2020-10-15 Office RYAN Cloud 1.2.840.114 [id number] [facility] 15:36:26 15:08:28 Visit Star A AMBULATOR 350.1.13.21 College Y 0.2.7.2.686 of [id number] [facility] 825 e 2020-10-14 2020-10-14 Outpatient RYAN CASTAÑEDA Laisha [id number] [facility] 14:06:22 16:51:07 CLARK Collier e of Medicin e 2020-09-16 2020-09-16 Outpatient [facility] [id number] [facility] 20:09:00 23:59:00 Gregg e of Medicin e 2020-09-16 2020-09-16 Emergency ER [facility] Emergency [id number] [facility] 18:17:00 18:17:00 2020-08-19 2020-08-19 Office RYAN Cloud 1.2.840.114 [id number] [facility] 14:57:45 16:54:41 Visit Star A AMBULATOR 350.1.13.21 College Y 0.2.7.2.686 of [id number] [facility] 825 e 2020-08-05 2020-08-05 Office RYAN Cloud 1.2.840.114 [id number] [facility] 13:00:06 14:46:27 Visit Star A AMBULATOR 350.1.13.21 College Y 0.2.7.2.686 of [id number] [facility] 825 e 2020-07-22 2020-07-22 Office RYAN Cloud 1.2.840.114 [id number] [facility] 13:04:56 14:30:33 Visit Star A AMBULATOR 350.1.13.21 College Y 0.2.7.2.686 of [id number] [facility] 825 e 2020-07-03 2020-07-03 Outpatient STLMLC [facility] [id number] Common 00:00:00 00:00:00 [facility] 2020-06-26 2020-06-26 Outpatient [facility]LMLC [facility] [id number] Common 00:00:00 00:00:00 [facility] 2020-06-24 2020-06-24 Office RYAN Cloud 1.2.840.114 [id number] [facility] 15:12:49 15:42:49 Visit Star A AMBULATOR 350.1.13.21 College Y 0.2.7.2.686 of [id number] [facility] 825 e 2020-05-27 2020-05-27 Outpatient SLE SLE [id number] [facility] 00:00:00 00:00:00 2020-05-27 2020-05-27 Outpatient EL SLE SLE [id number] [facility] 00:00:00 00:00:00 2020-05-27 2020-05-27 Outpatient EL SLE SLE [id number] [facility] 00:00:00 00:00:00 2020-05-26 2020-05-26 Outpatient [facility] [id number] [facility] 00:00:00 00:00:00 2020-05-20 2020-05-22 Office RYAN Cloud 1.2.840.[id number] [place] [address] 15:57:14 16:30:11 Visit Star A AMBULATOR 350.1.13.21 College Y 0.2.7.2.686 of [id number] [facility] 825 e 2020-05-20 2020-05-22 Office RYAN Cloud 1.2.840.114 [id number] 15:57:14 16:30:11 Visit Star A AMBULATOR 350.1.13.21 Y 0.2.7.2.686 [id number] [facility] 2020-05-13 2020-05-13 Office RYAN Cloud 1.2.840.114 [id number] [facility] 16:12:46 17:00:07 Visit Star A AMBULATOR 350.1.13.21 College Y 0.2.7.2.686 of [id number] [facility] 825 e 2020-05-13 2020-05-13 Office RYAN Cloud 1.2.840.114 [id number] 00 16:12:46 17:00:07 Visit Star A AMBULATOR 350.1.13.21 Y 0.2.7.2.686 [id number] [facility] 2020-04-29 2020-04-29 Office RYAN Cloud 1.2.840.114 [id number] [facility] 15:18:12 16:41:00 Visit Star A AMBULATOR 350.1.13.21 College Y 0.2.7.2.686 of [id number] [facility] 825 e 2020-04-29 2020-04-29 Office RYAN Cloud 1.2.840.114 [id number] 15:18:12 16:41:00 Visit Star A AMBULATOR 350.1.13.21 Y 0.2.7.2.686 [id number] [facility] 2020-04-16 2020-04-16 Outpatient [place] [facility] LABO [id number] -[address] [facility] 17:21:00 17:21:00 Oral [id number] [facility] 2020-04-16 2020-04-16 Outpatient [place] [facility] LABO [id number] -[address] [facility] 17:21:00 17:21:00 Oral [id number] [facility] 2020-04-11 2020-04-11 Emergency HGAAN, [facility] [id number] [address] [place] [address] 00:00:00 00:00:00 HAKEEM [address] 2020-04-08 2020-04-08 Office RYAN Cloud 1.2.840.[id number] [place] [address] 15:02:21 16:42:00 Visit Star A AMBULATOR 350.1.13.21 College Y 0.2.7.2.686 of [id number] [facility] 825 e 2020-04-08 2020-04-08 Office RYAN Cloud 1.2.840.114 [id number] 15:02:21 16:42:00 Visit Star A AMBULATOR 350.1.13.21 Y 0.2.7.2.686 [id number] [facility] 2020-04-07 2020-04-07 Outpatient ANGELINA Sánchez LABO [id number] -[address] [facility] 16:16:00 16:16:00 John [id number] [facility] 2020-03-11 2020-03-11 Outpatient BHAVESH PADILLA [facility] Med [id number] [facility] 18:57:00 18:57:00 JORGITO 2020-03-11 2020-03-11 Office RYAN Cloud 1.2.840.114 [id number] 22 [facility] 14:49:58 16:51:58 Visit Star A AMBULATOR 350.1.13.21 College Y 0.2.7.2.686 of [id number] [facility] 825 e 2020-03-11 2020-03-11 Office RYAN Cloud 1.2.840.114 [id number] 22 14:49:58 16:51:58 Visit Star A AMBULATOR 350.1.13.21 Y 0.2.7.2.686 [id number] [facility] 2020-02-27 2020-02-27 Outpatient KNOW, HCABM OPLA [id number] -[address] [facility] 19:43:00 19:43:00 DOES_NOT [id number] [facility] 2020-02-26 2020-02-26 Outpatient KNOW, HCABESSIE MADSENA [id number] -[address] [facility] 08:45:00 08:45:00 DOES_NOT [id number] [facility] 2020-02-22 2020-02-22 Out[facility]PLA [id number] -[address] [facility] 20:50:00 20:50:00 DOES_NOT [id number] [facility] 2020-02-21 2020-02-21 Outpatient KNOW[facility]PLA [id number] -[address] [facility] 20:31:00 20:31:00 DOES_NOT [id number] [facility] 2020-01-06 2020-01-06 Emergency ER [facility] Emergency [id number] [facility] 16:00:00 16:00:00 2020-01-01 2020-01-01 Office RYAN Cloud 1.2.840.[id number] [place] [address] 16:15:05 16:45:39 Visit Star A AMBULATOR 350.1.13.21 College Y 0.2.7.2.686 of [id number] [address] 2020-01-01 2020-01-01 Office HermesRYAN 1.2.840.114 [id number] 16:15:05 16:45:39 Visit Star A AMBULATOR 350.1.13.21 Y 0.2.7.2.686 [id number] [facility] 2020-01-01 2020-01-01 Office RYAN Castañeda 1.2.840.[id number] [place] [address] 15:18:00 16:17:05 Visit Clark Wilson AMBULATOR 350.1.13.21 College Y 0.2.7.2.686 of [id number] [address] 2020-01-01 2020-01-01 Office Castañeda, BCLaisha 1.2.840.114 [id number] 15:18:00 16:17:05 Visit Clark L AMBULATOR 350.1.13.21 Y 0.2.7.2.686 [id number] [facility] 2019-12-05 2019-12-05 Office RYAN Cloud 1.2.840.114 [id number] 90 [facility] 13:43:23 16:06:29 Visit Star A AMBULATOR 350.1.13.21 College Y 0.2.7.2.686 of [id number] [facility] 825 e 2019-12-05 2019-12-05 Office RYAN Cloud 1.2.840.114 [id number] 13:43:23 16:06:29 Visit Star A AMBULATOR 350.1.13.21 Y 0.2.7.2.686 [id number] [facility] 2019-07-14 2019-11-10 Outpatient RECERTIFIC NATALIO ENCCLR ENCCLR [id number] ENCCLR 00:00:00 00:00:00 YAN CHIOMA LAY 2019-10-16 2019-10-16 Outpatient [facility] [id number] [facility] 00:00:00 00:00:00 2019-10-12 2019-10-12 Outpatient EL SLEH SLEH [id number] [facility] 00:00:00 00:00:00 2019-10-02 2019-10-02 Office RYAN Cloud 1.2.840.[id number] [place] [address] 14:21:54 16:08:48 Visit Star A AMBULATOR 350.1.13.21 College Y 0.2.7.2.686 of [id number] [facility] 825 e 2019-10-02 2019-10-02 Office RYAN Cloud 1.2.840.114 [id number] 14:21:54 16:08:48 Visit Star A AMBULATOR 350.1.13.21 Y 0.2.7.2.686 [id number] [facility] 2019-09-12 2019-09-12 Outpatient EL SLEH SLEH [id number] [facility] 00:00:00 00:00:00 2019-09-10 2019-09-10 Outpatient SLEH SLEH [id number] [facility] 00:00:00 00:00:00 2019-09-04 2019-09-04 Office RYAN Cloud 1.2.840.114 [id number] 33 [facility] 14:17:20 16:48:51 Visit Star A AMBULATOR 350.1.13.21 College Y 0.2.7.2.686 of [id number] [facility] 825 e 2019-09-04 2019-09-04 Office RYAN Cloud 1.2.840.114 [id number] 33 14:17:20 16:48:51 Visit Star A AMBULATOR 350.1.13.21 Y 0.2.7.2.686 [id number] [facility] 2019-09-04 2019-09-04 Office CastañedaRYAN 1.2.840.[id number] [place] [address] 14:17:07 16:48:39 Visit Clark Wilson AMBULATOR 350.1.13.21 College Y 0.2.7.2.686 of [id number] [facility] 825 e 2019-09-04 2019-09-04 Office CastañedaRYAN 1.2.840.114 [id number] 14:17:07 16:48:39 Visit Clark Wilson AMBULATOR 350.1.13.21 Y 0.2.7.2.686 [id number] [facility] 2019-08-21 2019-08-21 Office RYAN Cloud 1.2.840.[id number] [place] [address] 16:46:14 16:46:14 Visit Star A AMBULATOR 350.1.13.21 College Y 0.2.7.2.686 of [id number] [facility] 825 e 2019-08-21 2019-08-21 Office SIRISHA CloudM 1.2.840.114 [id number] 16:46:14 16:46:14 Visit Star A AMBULATOR 350.1.13.21 Y 0.2.7.2.686 [id number] [facility] 2019-08-07 2019-08-07 Office RYAN Cloud 1.2.840.[id number] [place] [address] 13:10:09 16:34:44 Visit Star A AMBULATOR 350.1.13.21 College Y 0.2.7.2.686 of [id number] [facility] 825 e 2019-08-07 2019-08-07 Office RYAN Cloud 1.2.840.114 [id number] 13:10:09 16:34:44 Visit Star A AMBULATOR 350.1.13.21 Y 0.2.7.2.686 [id number] [facility] 2019-07-24 2019-07-24 Office RYAN Cloud 1.2.840.114 [id number] 13:35:06 14:05:03 Visit Star Bean AMBULATOR 350.1.13.21 Y 0.2.7.2.686 [id number] [facility] 2019-07-24 2019-07-24 Office RYAN Cloud 1.2.840.114 [id number] 83 [facility] 13:35:06 14:05:03 Visit Star A AMBULATOR 350.1.13.21 College Y 0.2.7.2.686 of [id number] [place] 987305 e 2019-07-17 2019-07-17 Office RYAN Castañeda 1.2.840.114 [id number] 31 11:22:05 16:23:11 Visit Clark Wilson AMBULATOR 350.1.13.21 Y 0.2.7.2.686 [id number] [facility] 2019-07-17 2019-07-17 Office RYAN Castañeda 1.2.840.114 [id number] 31 [facility] 11:22:05 16:23:11 Visit Clark Wilson AMBULATOR 350.1.13.21 College Y 0.2.7.2.686 of [id number] [place] 987305 e 2019-07-14 2019-07-14 Outpatient RECERTIFIC NATALIO ENCCLR ENCCLR [id number] ENCCLR 00:00:00 00:00:00 CHIOMA SEARS 2019-07-10 2019-07-10 Office RYAN Cloud 1.2.840.114 [id number] 61 15:58:34 16:52:46 Visit Star Bean AMBULATOR 350.1.13.21 Y 0.2.7.2.686 [id number] [facility] 2019-07-10 2019-07-10 Office RYAN Cloud 1.2.840.114 [id number] 61 [facility] 15:58:34 16:52:46 Visit Star A AMBULATOR 350.1.13.21 College Y 0.2.7.2.686 of [id number] [facility] 825 e 2019-05-10 2019-05-10 Outpatient BENGALI, [facility] [id number] 000 Yolyn 00:00:00 00:00:00 WILMER [address] 2019-05-10 2019-05-10 Outpatient BENGALI, [facility] [id number] 000 Yolyn 00:00:00 00:00:00 WILMER [address] 2019-05-09 2019-05-09 Outpatient BENGALI, [facility] [id number] 969 Yolyn 00:00:00 00:00:00 WILMER [address] 2019-05-08 2019-05-08 Outpatient BENGALI, [facility] [id number] 969 Yolyn 00:00:00 00:00:00 WILMER [address] 2018-09-08 2018-09-08 Outpatient ANANDA [facility] 977 [id number] Yolyn 00:00:00 00:00:00 , ABRAHAM [address] Results Test Description Test Time Test Comments Results Result Comments Source COMP. METABOLIC PANEL (02667) 2021-10-19 22:19:35 Test Item Value Reference Range Interpretation Comme nts NA (test code = 4448841676) 137 mmol/L 135-145 K (test code = 9694738579) 4.3 mmol/L 3.5-5 CL (test code = 5305802664) 97 mmol/L 98-108 L CO2 TOTAL (test code = 9262256856) 26 mmol/L 23-31 AGAP (test code = 9703654501) 2-16 BUN (test code = 5853598071) 43 mg/dL 7-23 H GLUCOSE (test code = 2471700064) 159 mg/dL 70-110 H CREATININE (test code = 7.81 mg/dL 0.6-1.25 H 0334959532) TOTAL BILI (test code = 0.6 mg/dL 0.1-1.1 2690818790) CALCIUM (test code = 4396536082) 7.8 mg/dL 8.6-10.6 L T PROTEIN (test code = 8340935511) 7.8 g/dL 6.3-8.2 ALBUMIN (test code = 6092185596) 4.3 g/dL 3.5-5 ALK PHOS (test code = 2021194716) 97 U/L 34-122 ALTv (test code = 1742-6) 24 U/L 5-50 AST(SGOT) (test code = 8386376543) 34 U/L 13-40 eGFR (test code = 2501716962) mL/min/1.73m2 MITCHELL (test code = MITCHELL) Association of Glomerular Filtration Rate (GFR) and Staging of Kidney Disease* + +-------- + ------+| GFR (mL/min/1.73 m2) ?| With Kidney Damage ?| ?Without Kidney Damage+ +-- + +| ?>90 ?| ?Stage one ?| ? Normal ?+ +------- + -------+| ?60-89 ?| ?Stage two ?| ? Decreased GFR ? + +-------- + ------+| ?30-59 ?| ?Stage three ?| ? Stage three ? + +-------- + ------+| ?15-29 ?| ?Stage four ? | ? Stage four ?+ +------- + -------+| ?<15 (or dialysis) ? ?| ?Stage five ? | ? Stage five ?+ +------- + -------+ *Each stage assumes the associated GFR level has been in effect for at least three months. ?Stages 1 to 5, with or without kidney disease, indicate chronic kidney disease. Notes: Determination of stages one and two (with eGFR >59mL/min/1.73 m2) requires estimation of kidney damage for at least three months as defined by structural or functional abnormalities of the kidney, manifested by either:Pathological abnormalities or Markers of kidney damage (including abnormalities in the composition of the blood or urine or abnormalities in imaging tests). Lab Interpretation (test code = Abnormal 37970-9) [facility] [id number] 21:18:48 Test Item Value Reference Interpretation Comments Range TROPONIN I (test 0.047 ng/mL See_Comment H [Automated code = 5043466724) message] The system which generated this result transmitted reference range : <=0.034. The reference range was not used to interpret this result as normal/abnormal . MITCHELL (test code = Reference (Normal) MITCHELL) Range (defined by the 99th percentile reference limit): <= 0.034 ng/mL Note: Cardiac troponin begins to rise 3-4 hours after the onset of ischemia. Repeat in 4-6 hours if the sample was drawn within 3-4 hours of the onset of the symptom and found normal. Diagnosis of myocardial injury is made with acute changes in cTn concentrations with at least one serial sample above the 99th percentile upper reference limit (URL), taken together with the patient's clinical presentation. Biotin has been reported to cause a negative bias, interpret results relative to patient's use of biotin. Lab Interpretation Abnormal (test code = 97313-9) [facility] WITH [id number] 21:01:25 Test Item Value Reference Range Interpretation Comments WBC (test code = See_Comment [Automated message] 90-2) The system [employer] generated this result transmitted ref erence range: 4.20 - 1 0.70 10*3/?L. The re ference range was not u sed to interpret this result as normal/abnor mal. RBC (test code = See_Comment [Automated message] 989-8) The system [employer] generated this result transmitted ref erence range: 4.26 - 5 .52 10*6/?L. The re ference range was not u sed to interpret this result as normal/abnor mal. HGB (test code = 15.0 g/dL 12.2-16.4 718-7) HCT (test code = 45.8 % 38.4-49.3 4544-3) MCV (test code = 93.5 fL 81.7-95.6 787-2) MCH (test code = 30.6 pg 26.1-32.7 785-6) MCHC (test code = 32.8 g/dL 31.2-35 786-4) RDW-SD (test code 50.6 fL 38.5-51.6 = 00298-8) RDW-CV (test code 14.9 % 12.1-15.4 = 788-0) PLT (test code = See_Comment [Automated message] 947-3) The system [employer] generated this result transmitted ref erence range: 150 - 32 8 10*3/?L. The re ference range was not u sed to interpret this result as normal/abnor mal. MPV (test code = 10.4 fL 9.8-13 29852-7) NRBC/100 WBC (test See_Comment [Automat ed message] code = 4607343457) The syste m which generated this result transmitted ref erence range: 0.0 - 10 .0 /100 WBCs. The refer ence range was not u sed to interpret this result as normal/abnor mal. NRBC x10^3 (test See_Comment [Automated message] code = 8198614975) The syste m which generated this result transmitted ref erence range: 10*3/?L. The reference range was not used to interpr et this result as normal/abnormal . GRAN MAT (NEUT) % 71.5 % (test code = 770-8) IMM GRAN % (test 0.40 % code = 2563509609) LYMPH % (test code 14.8 % = 736-9) MONO % (test code 6.6 % = 5905-5) EOS % (test code = 5.5 % 713-8) BASO % (test code 1.2 % = 706-2) GRAN MAT 5.35 10*3/uL 1.99-6.95 x10^3(ANC) (test code = 7202683248) IMM GRAN x10^3 0.03 10*3/uL 0-0.06 (test code = 6733377775) LYMPH x10^3 (test 1.11 10*3/uL 1.09-3.23 code = 731-0) MONO x10^3 (test 0.49 10*3/uL 0.36-1.02 code = 742-7) EOS x10^3 (test 0.41 10*3/uL 0.06-0.53 code = 711-2) BASO x10^3 (test 0.09 10*3/uL 0.01-0.09 code = 704-7) [facility] ([facility]19[facility] RNA [Presence] in Respiratory specimen by NANNETTE with probe [id number] 01:50:35 Test Item Value Reference Range Interpretation Comments SARS-CoV-2 (COVID-19) RNA Not detected [Presence] in Respiratory specimen by NANNETTE with probe detection (test code = 12364-0) Whether patient is employed in a Unknown healthcare setting (test code = 39452-4) Whether the patient has symptoms Unknown related to condition of interest (test code = 93146-0) Whether the patient was Unknown hospitalized for condition of interest (test code = 01841-8) Whether the patient was admitted Unknown to intensive care unit (ICU) for condition of interest (test code = 98208-7) Whether patient resides in a Unknown congregate care setting (test code = 80243-4) status (test code = Unknown 80927-5) Date and time of symptom onset Unknown (test code = 41440-0) AFB CULTURE + SMEAR (NON-SPUTUM)2021-04-17 15:36:11 Test [...] code = 994) seen FUNGUS CULTURE + [id number] 00:16:15 Test Item Value Reference Range Interpretation Comments CULTURE (BEAKER) (test No fungus isolated in code = 1095) 28 days FUNGUS SMEAR (BEAKER) No fungi seen (test code = 1406) FUNGUS CULTURE + [id number] 00:16:15 Test Item Value Reference Range Interpretation Comments CULTURE (BEAKER) (test No fungus isolated in code = 1095) 28 days FUNGUS SMEAR (BEAKER) No fungi seen (test code = 1406) POCT-GLUCOSE [id number] 12:51:38 Test Item Value Reference Range Interpretation Comments POC-GLUCOSE METER 76 mg/dL 70-110 : TESTED Vikas Tai [facility] 6720 (BEAKER) (test code = [place], 1538) 71763: 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 Operator/Techni estefani ID = [id number] for Jewels Davies POCT-GLUCOSE [id number] 07:54:53 Test Item Value Reference Range Interpretation Comments POC-GLUCOSE METER 77 mg/dL 70-110 : TESTED A T [facility] 6720 (BEAKER) (test code = [facility], 1538) 41396: 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 Operator/Techni estefani ID = [id number] for Sandie Wall BASIC METABOLIC [id number] 05:33:29 Test Item Value Reference Range Interpretation [...] S NOT APPLICABLE FOR DIALYSIS PATIEN TS. 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 Operator ID - KILO GVANCOMYCIN LEVEL, [id number] 05:18:50 Test Item Value Reference Range Interpretation Comments VANCOMYCIN RANDOM (BEAKER) (test 45.9 ug/mL code = 523) Reference Range: No NormalsOperator ID - DBPOCT-GLUCOSE [id number] 21:32:38 Test Item Value Reference Range Interpretation Comments POC-GLUCOSE METER 92 mg/dL 70-110 : TESTED A T [facility] 6720 (BEAKER) (test code = [facility], 1538) 45709: 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 Operator/Techni estefani ID = [id number] for Ramonita Amador od POCT-GLUCOSE [id number] 17:02:02 Test Item Value Reference Range Interpretation Comments POC-GLUCOSE METER 106 mg/dL 70-110 : TESTED A T [facility] 6720 (BEAKER) (test code = [facility], 1538) 57831: 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 Operator/Techni estefani ID = [id number] for Sandie Kyle POCT-GLUCOSE [id number] 12:00:05 Test Item Value Reference Range Interpretation Comments POC-GLUCOSE METER 83 mg/dL 70-110 : TESTED A T [facility] 6720 (BEAKER) (test code = [facility], 1538) 18591: 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 Operator/Techni estefani ID = [id number] for Sandie Wall BASIC METABOLIC [id number] 10:36:14 Test Item Value Reference Range Interpretation [...] S NOT APPLICABLE FOR DIALYSIS PATIEN TS. 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 Operator ID - DBPOCT-GLUCOSE [id number] 07:25:42 Test Item Value Reference Range Interpretation Comments POC-GLUCOSE METER 77 mg/dL 70-110 : TESTED A T [facility] 6720 (BEAKER) (test code = [facility], 1538) 14224: 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 Operator/Techni estefani ID = [id number] for Sandie Wall POCT-GLUCOSE [id number] 21:13:53 Test Item Value Reference Range Interpretation Comments POC-GLUCOSE METER 98 mg/dL 70-110 : TESTED A T [facility] 6720 (BEAKER) (test code = [facility], 1538) 11745: 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 Operator/Techni estefani ID = [id number] for WILMER MCDUFFIE POCT-GLUCOSE [id number] 15:43:19 Test Item Value Reference Range Interpretation Comments POC-GLUCOSE METER 101 mg/dL 70-110 : TESTED A T [facility] 6720 (BEAKER) (test code = [facility], 1538) 98689: 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 Operator/Techni estefani ID = [id number] for Indy Stevenson BASIC METABOLIC [id number] 13:17:24 Test Item Value Reference Range Interpretation [...] S NOT APPLICABLE FOR DIALYSIS PATIEN TS. 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 Operator ID - JAQUELINE MPOCT-GLUCOSE [id number] 12:00:02 Test Item Value Reference Range Interpretation Comments POC-GLUCOSE METER 89 mg/dL 70-110 : TESTED A T [facility] 6720 (BEAKER) (test code = [facility], 1538) 79554: 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 Operator/Techni estefani ID = [id number] for Cornel rubiIndy POCT-GLUCOSE [id number] 08:08:40 Test Item Value Reference Range Interpretation Comments POC-GLUCOSE METER 77 mg/dL 70-110 : TESTED A T [facility] 6720 (BEAKER) (test code = [facility], 1538) 36195: 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 Operator/Techni estefani ID = [id number] for Cornel rubi, Indy POCT-GLUCOSE [id number] 23:32:15 Test Item Value Reference Range Interpretation Comments POC-GLUCOSE METER 84 mg/dL 70-110 : TESTED A T [facility] 6720 (BEAKER) (test code = [facility], 1538) 74583: 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 Operator/Techni estefani ID = [id number] for DEREK QUICK KAREN POCT-GLUCOSE [id number] 17:21:27 Test Item Value Reference Range Interpretation Comments POC-GLUCOSE METER 111 mg/dL 70-110 H : TESTED A T [facility] 6720 (BEAKER) (test code = [facility], [facility]8) 96756: 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 Operator/Techni estefani ID = [id number] for MOLLY DAWKINS, ANKIT POCT-GLUCOSE [id number] 12:58:04 Test Item Value Reference Range Interpretation Comments POC-GLUCOSE METER 74 mg/dL 70-110 : TESTED A T [facility] 6720 (BEAKER) (test code = [facility], [facility]8) 82616: 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 Operator/Techni estefani ID = [id number] for KELSI PSON, ANKIT POCT-GLUCOSE [id number] 00:02:33 Test Item Value Reference Range Interpretation Comments POC-GLUCOSE METER 105 mg/dL 70-110 : TESTED A T [facility] 6720 (BEAKER) (test code = [facility], [facility]) 62026: 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 Operator/Techni estefani ID = [id number] for FARHAN NINA, KAREN POCT-GLUCOSE [id number] 15:46:51 Test Item Value Reference Range Interpretation Comments POC-GLUCOSE METER 77 mg/dL 70-110 : TESTED A T [facility] 6720 (BEAKER) (test code = [facility], [facility]) 76215: 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 Operator/Techni estefani ID = [id number] for KELSI PSON, ANKIT [id number] 13:53:39 Test Item Value Reference Range Interpretation Comments PHOSPHORUS (BEAKER) (test code = 5.2 mg/dL 2.3-4.7 H 604) 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 Operator ID - DANITZA LPOCT-GLUCOSE [id number] 09:32:21 Test Item Value Reference Range Interpretation Comments POC-GLUCOSE METER 76 mg/dL 70-110 : TESTED A T [facility] 6720 (BEAKER) (test code = DASIA Prudencio [facility], 1538) 38239: 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 Operator/Techni estefani ID = [id number] for Santiago Shaw BASIC METABOLIC [id number] 04:51:29 Test Item Value Reference Range Interpretation [...] S NOT APPLICABLE FOR DIALYSIS PATIEN TS. 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 Operator ID - BASSEM WCBC W/PLT COUNT & AUTO [id number] 04:35:39 Test Item Value Reference Range Interpretation [...] PERCENT (BEAKER) (test code = 2801) POCT-GLUCOSE [id number] 21:21:08 Test Item Value Reference Range Interpretation Comments POC-GLUCOSE METER 116 mg/dL 70-110 H : TESTED A T [facility] 6720 (BEAKER) (test code = [facility], 1538) 60861: 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 Operator/Techni estefani ID = [id number] for SHAMEKA ENRIQUEZ POCT-GLUCOSE [id number] 16:51:43 Test Item Value Reference Range Interpretation Comments POC-GLUCOSE METER 97 mg/dL 70-110 : TESTED A T [facility] 6720 (BEAKER) (test code = [facility], 1538) 94574: 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 Operator/Techni estefani ID = [id number] for ANKIT SMITH POCT-GLUCOSE [id number] 12:04:32 Test Item Value Reference Range Interpretation Comments POC-GLUCOSE METER 93 mg/dL 70-110 : TESTED A T [facility] 6720 (NOE) (test code = [facility], 1538) 06903: 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 Operator/Techni estefani ID = [id number] for ANKIT SMITH SARS-COV2/RT-PCR ([facility])2021-03-11 10:47:57 Test Item Value Reference Range Interpretation Comments SARS-COV2/RT-PCR (test Negative Not Detected, Negative, code = [id number]) See external report for linked test SARS-COV-2 PERFORMING LAB [facility] KEELY (test code = 3112638) Negative result for this test determines that [...] justifying the authorization of the emergency use ofin vitro diagnostic tests for detection and/or diagnosis of COVID-19 is terminated under Section 564(b)(2) of the Act or the EUA is revoked under Section 564(g) of the Act.Fact Sheet for Healthcare Prov iders:https://www.[employer].com/sites/default/files/product/documents/Fact_Sheet_HC _Iebahowir_Jybn_NFFK-EqI-3.pdfFact Sheet for Healthcare Patients:https://www.[employer]/sites/default/files/product/docume nts/Yhhx_Lrpnq_Gmnvtvqd_Oceu_PWTQ-LpI-6.pdfPerforming Laboratory:[facility] [place], [place] [address]ELJP-KANQGUK METER 2021-03-11 07:26:03 Test Item Value Reference Range Interpretation Comments POC-GLUCOSE METER 81 mg/dL 70-110 : TESTED A T [facility] 6720 (BEAKER) (test code = DASIA Garcia [facility], 1538) 22898: 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 Operator/Techni estefani ID = [id number] for ANKIT SMITH CBC W/PLT COUNT & AUTO [id number] 05:24:05 Test Item Value Reference Range Interpretation [...] PERCENT (BEAKER) (test code = 2801) POCT-GLUCOSE [id number] 20:58:34 Test Item Value Reference Range Interpretation Comments POC-GLUCOSE METER 123 mg/dL 70-110 H : TESTED A T [facility] 6720 (BEAKER) (test code = [facility], 1538) 39621: 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 Operator/Techni estefani ID = [id number] for Melody Mcintosh POCT-GLUCOSE [id number] 15:56:05 Test Item Value Reference Range Interpretation Comments POC-GLUCOSE METER 88 mg/dL 70-110 : TESTED A T [facility] 6720 (BEAKER) (test code = [facility], 1538) 83946: 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 Operator/Techni estefani ID = [id number] for NII MALONE CBC W/PLT COUNT & AUTO [id number] 05:41:29 Test Item Value Reference Range Interpretation [...] (BEAKER) (test code = 2801) BASIC METABOLIC [id number] 05:37:30 Test Item Value Reference Range Interpretation [...] S NOT APPLICABLE FOR DIALYSIS PATIEN TS. 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 Operator ID - JAQUELINE MPOCT-GLUCOSE [id number] 03:58:58 Test Item Value Reference Range Interpretation Comments POC-GLUCOSE METER 90 mg/dL 70-110 : [facility] ([facility]) (test code = [facility], 1538) 63061: 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 Operator/Techni estefani ID = [id number] for ANTONY PEREIRA POCT-GLUCOSE [id number] 18:01:23 Test Item Value Reference Range Interpretation Comments POC-GLUCOSE METER 80 mg/dL 70-110 : [facility] ([facility]) (test code = [facility], 1538) 21256: 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 Operator/Techni estefani ID = [id number] for TYRA MARIE TISSUE [id number] 12:20:52Surgical Pathology Report Case: [id number] Authorizing Provider: Star Cloud DPM Collected: 03/02/2021 03:11 PM Ordering Location: [address] Received: 03/02/2021 04:39 PM Service Pathologist: Liz Branham MD Specimen: Bone, Right achilles tendon/bone fragment for ID A. BONE, RIGHT ACHILLES TENDON, DEBRIDEMENT: - ACUTE OSTEOMYELITIS WITH FIBRINOPURULENT EXUDATE. Signing Pathologist Direct Phone Line: [phone] signed by Liz Branham MD on 03/09/2021 at 12:20 [id number], [id number] Acute hematogenous osteomyelitis of right foot BoneReceived fresh labeled the patient's name, accession number and "right Achilles tendon/bone fragment" are 3 fragments of gardner-red, trabeculated bonewith adherent green- black, necrotic skin and soft tissue ranging from 1.5-2.0 cm in greatest dimension. The cut surface is gardner-yellow, trabeculated and firm. Bath Steward/Stewardess sections are submitted as follows:Section hrpmJ5-R1-akmscy bone fragments following decalcificationA6-skin and soft tissuePilar LEW Caraballo HT (ASCP)Performed.The interpretation of this case included the use of immunohistochemistry or special stains.Control Slides Examined: In-house known positive controls were evaluated alongwith the test tissue. These control slides run alongside of the patients sample show appropriate staining. Internal positive and negative controls when available are evaluated Immunohistochemistry technical testing was performed at [facility], Pathology Laboratory where it was developed and its performance characteristics were determined. It has not been cleared or approved by the U.S. Food and Drug Administration. The FDA has determined that such clearance or approval is not ne cessary. The test is used for clinical purposes. It should not be regarded as investigational or forresearch. This laboratory is certified under the Clinical Laboratory Improvement Amendments of 1988 (CLIA-88) as qualified to perform high complexity clinical laboratory testing.[facility], Department of Pathology, [address] [place] [address], [facility], Department of Pathology, [address] [place] [address], [facility]xjAd[facility], Department of Pathology, [address] [place] [address], IVZS-GLUCOSE [id number] 11:21:42 Test Item Value Reference Range Interpretation Comments POC-GLUCOSE METER 102 mg/dL 70-110 : TESTED Vikas Tai [facility] 6720 (NOE) (test code = DASIA Garcia [facility], 1538) 16763: 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 Operator/Techni estefani ID = [id number] for Callie ronnell Indy POCT-GLUCOSE [id number] 07:24:40 Test Item Value Reference Range Interpretation Comments POC-GLUCOSE METER 69 mg/dL 70-110 L : TESTED A T [facility] 6720 (BEAKER) (test code = [facility], 1538) 32138: 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 Operator/Techni estefani ID = [id number] for Indy Hodgson BASIC METABOLIC [id number] 07:05:47 Test Item Value Reference Range Interpretation [...] S NOT APPLICABLE FOR DIALYSIS PATIEN TS. 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 Operator ID - JAQUELINE MPOCT-GLUCOSE [id number] 21:01:43 Test Item Value Reference Range Interpretation Comments POC-GLUCOSE METER 104 mg/dL 70-110 : TESTED A T [facility] 6720 (BEAKER) (test code = [facility], 1538) 13999: 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 Operator/Techni estefani ID = [id number] for FARHAN AHAM, KAREN POCT-GLUCOSE [id number] 15:35:38 Test Item Value Reference Range Interpretation Comments POC-GLUCOSE METER 128 mg/dL 70-110 H : TESTED A T [facility] 6720 (BEAKER) (test code = [facility], 1538) 70689: 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 Operator/Techni estefani ID = [id number] for Gary Jewels prasad ANAEROBIC [id number] 14:26:15 Test Item Value Reference Range Interpretation Comments CULTURE (BEAKER) (test No anaerobes isolated code = 1095) ANAEROBIC [id number] 14:22:02 Test Item Value Reference Range Interpretation Comments CULTURE (BEAKER) (test No anaerobes isolated code = 1095) [id number] 12:05:50 Test Item Value Reference Range Interpretation Comments PHOSPHORUS (BEAKER) (test code = 6.0 mg/dL 2.3-4.7 H 604) 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 Operator ID - DANITZA LPOCT-GLUCOSE [id number] 11:25:46 Test Item Value Reference Range Interpretation Comments POC-GLUCOSE METER 93 mg/dL 70-110 : TESTED A T [facility] 6720 (BEAKER) (test code = [facility], 1538) 21144: 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 Operator/Techni estefani ID = [id number] for Jewels Davies POCT-GLUCOSE [id number] 07:29:21 Test Item Value Reference Range Interpretation Comments POC-GLUCOSE METER 84 mg/dL 70-110 : TESTED A T [facility] 6720 (BEAKER) (test code = [facility], 1538) 22480: 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 Operator/Techni estefani ID = [id number] for Jewels Davies BASIC METABOLIC [id number] 05:48:13 Test Item Value Reference Range Interpretation [...] S NOT APPLICABLE FOR DIALYSIS PATIEN TS. 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 Operator ID - PIAYA LVANCOMYCIN LEVEL, [id number] 05:13:36 Test Item Value Reference Range Interpretation Comments VANCOMYCIN RANDOM (BEAKER) (test 18.4 ug/mL code = 523) Reference Range: No NormalsOperator ID - DANITZA LPOCT-GLUCOSE [id number] 21:23:17 Test Item Value Reference Range Interpretation Comments POC-GLUCOSE METER 118 mg/dL 70-110 H : TESTED A T [facility] 6720 (BEAKER) (test code = [facility], 1538) 00570: 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 Operator/Techni estefani ID = [id number] for ORION CASTANEDA POCT-GLUCOSE [id number] 16:22:46 Test Item Value Reference Range Interpretation Comments POC-GLUCOSE METER 94 mg/dL 70-110 : TESTED A T [facility] 6720 (BEAKER) (test code = [facility], 1538) 33291: 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 Operator/Techni estefani ID = [id number] for ANKIT SMITH POCT-GLUCOSE [id number] 12:19:51 Test Item Value Reference Range Interpretation Comments POC-GLUCOSE METER 97 mg/dL 70-110 : TESTED A T [facility] 6720 (BEAKER) (test code = [facility], 1538) 31376: 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 Operator/Techni estefani ID = [id number] for EMIGDIO SMITHITA POCT-GLUCOSE [id number] 08:48:25 Test Item Value Reference Range Interpretation Comments POC-GLUCOSE METER 70 mg/dL 70-110 : TESTED A T [facility] 6720 (BEAKER) (test code = [facility], 1538) 95580: 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 Operator/Techni estefani ID = [id number] for KELSI BONNERN ANKIT CBC W/PLT COUNT & AUTO [id number] 06:55:44 Test Item Value Reference Range Interpretation Comments WHITE BLOOD CELL COUNT (BEAKER) 7.4 K/ L 3.5-10.5 (test code = 775) RED BLOOD CELL COUNT (BEAKER) 3.03 M/ L 4.63-6.08 L (test code = 761) HEMOGLOBIN (BEAKER) (test code = 7.9 GM/DL 13.7-17.5 L 410) HEMATOCRIT (AKER) (test code = 25.9 % 40.1-51.0 L [...] (BEAKER) (test code = 2801) VANCOMYCIN LEVEL, [id number] 06:02:23 Test Item Value Reference Range Interpretation Comments VANCOMYCIN TROUGH (BEAKER) (test 19.2 ug/mL 10.0-20.0 code = 522) 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 Operator ID - JAQUELINE MPOCT-GLUCOSE [id number] 21:00:17 Test Item Value Reference Range Interpretation Comments POC-GLUCOSE METER 79 mg/dL 70-110 : TESTED A T [facility] 6720 (BEAKER) (test code = [facility], 1538) 47065: 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 Operator/Techni estefani ID = [id number] for SHAMEKA MOLINA POCT-GLUCOSE [id number] 16:13:51 Test Item Value Reference Range Interpretation Comments POC-GLUCOSE METER 112 mg/dL 70-110 H : TESTED A T [facility] 6720 (BEAKER) (test code = [facility], 1538) 82101: 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 Operator/Techni estefani ID = [id number] for NII MALONE POCT-GLUCOSE [id number] 12:21:34 Test Item Value Reference Range Interpretation Comments POC-GLUCOSE METER 84 mg/dL 70-110 : TESTED A T [facility] 6720 (BEAKER) (test code = [facility], 1538) 24496: 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 Operator/Techni estefani ID = [id number] for MARICARMEN MALONEYL POCT-GLUCOSE [id number] 08:29:43 Test Item Value Reference Range Interpretation Comments POC-GLUCOSE METER 84 mg/dL 70-110 : TESTED A T [facility] 6720 (BEAKER) (test code = [facility], 1538) 46692: 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 Operator/Techni estefani ID = [id number] for NII MALONE BASIC METABOLIC [id number] 07:10:22 Test Item Value Reference Range Interpretation [...] S NOT APPLICABLE FOR DIALYSIS PATIEN TS. 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 Operator ID - PIAYA LCBC W/PLT COUNT & AUTO [id number] 06:40:33 Test Item Value Reference Range Interpretation [...] PERCENT (BEAKER) (test code = 2801) POCT-GLUCOSE [id number] 21:18:36 Test Item Value Reference Range Interpretation Comments POC-GLUCOSE METER 110 mg/dL 70-110 : TESTED A T [facility] 6720 (BEAKER) (test code = [facility], 1538) 48623: 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 Operator/Techni estefani ID = [id number] for Ramonita Prado POCT-GLUCOSE [id number] 16:23:36 Test Item Value Reference Range Interpretation Comments POC-GLUCOSE METER 138 mg/dL 70-110 H : TESTED A T [facility] 6720 (BEAKER) (test code = [facility], 1538) 41310: 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 Operator/Techni estefani ID = [id number] for Aure Teran SARS-COV2/RT-PCR ([facility])2021-03-05 11:06:00 Test Item Value Reference Range Interpretation Comments SARS-COV2/RT-PCR (test code = Negative Negative 7099843) Negative result for this test determines that [...] the Giles SARS-CoV-2 assay.Fact Sheet for Healthcare Providers:https://www.[employer]/ari/RT SARS-CoV-2 HCP Fact Sheet 51- 829016.pdfFact Sheet for Healthcare Patients:https://www.[employer]/ari/RT SARS-CoV-2 Patient Fact Sheet EN 51-513816R7.pdfSURGICALLY OBTAINED CULTURE + GRAM [id number] 09:04:09 Test Item Value Reference Interpretation Comments Range CULTURE (BEAKER) A 4+ Coryneba cterium (test code = 1095) species CULTURE (BEAKER) STAPHYLOCOCCUS A 4+ Staphy lococcus [...] gram positive (BEAKER) (test code rods = 041266) GRAM STAIN RESULT <1+ gram positive (BEAKER) (test code cocci in pairs = 438277) SURGICALLY OBTAINED CULTURE + GRAM [id number] 09:01:34 Test Item Value Reference Interpretation Comments [...] G, by serologic al grouping CULTURE (BEAKER) STAPHYLOCOCCUS A 3+ Staphy lococcus (test code [...] gram positive (BEAKER) (test code rods = 313797) GRAM STAIN RESULT 1+ gram positive (BEAKER) (test code cocci in chains = 025730) and pairs RAD, FOOT, 2 VIEWS, [id number] 06:55:00Is this procedure to be performed with weight bearing?->Non-Weight BearingReason for exam:->post op revision of post TMA, bone resection psoterior calceaus and forefoot.Should this be performed at the bedside?->Yes [facility] : 1960 Sex: MFINAL REPORT RAD, FOOT, 2 VIEWS, RIGHT INDICATION: post op revision of post TMA, bone resection psoterior calceaus and forefoot. COMPARISON: February 29, 2020 TECHNIQUE: Limited lateral and oblique views of the right foot. 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 Osseous resection posterior to the calcaneus is present with bandage wound. Stable dense arterial calcifications. No additional osseous change. Signed: JR Cuello Robert MDReport Verified Date/Time: 03/05/2021 06:55:23 Reading Location: [facility] Radiology Reading Room CBC W/PLT COUNT & AUTO [id number] 04:59:49 Test Item Value Reference Range Interpretation [...] (BEAKER) (test code = 2801) BASIC METABOLIC [id number] 04:59:02 Test Item Value Reference Range Interpretation Comments SODIUM (BEAKER) 137 meq/L 136-145 (test code = 381) POTASSIUM (BEAKER) 4.4 meq/L 3.5-5.1 (test code = 379) CHLORIDE (BEAKER) 98 meq/L 98-107 (test code = 382) CO2 (BEAKER) (test 29 meq/L 22- code = 355) BLOOD UREA NITROGEN 30 [...] S NOT APPLICABLE FOR DIALYSIS PATIEN TS. 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 Operator ID - DANITZA LVANCOMYCIN LEVEL, [id number] 04:48:13 Test Item Value Reference Range Interpretation Comments VANCOMYCIN RANDOM (BEAKER) (test 15.8 ug/mL code = 523) Reference Range: No NormalsOperator ID - DANITZA LPOCT-GLUCOSE [id number] 04:08:20 Test Item Value Reference Range Interpretation Comments POC-GLUCOSE METER 89 mg/dL 70-110 : [facility] ([facility]ER[facility] (test code = [facility], 1538) 73360: 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 Operator/Techni estefani ID = [id number] for GRAH AM, KAREN BASIC METABOLIC [id number] 13:43:25 Test Item Value Reference Range Interpretation Comments SODIUM (BEAKER) 135 meq/L 136-145 L (test code = 381) POTASSIUM (BEAKER) 5.3 meq/L 3.5-5.1 H (test code = 379) CHLORIDE (BEAKER) 97 meq/L 98-107 L (test code = 382) CO2 (BEAKER) (test 24 meq/L -29 code = 355) BLOOD UREA NITROGEN 53 [...] S NOT APPLICABLE FOR DIALYSIS PATIEN TS. 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 Operator ID - DANITZA LVANCOMYCIN LEVEL, [id number] 13:26:53 Test Item Value Reference Range Interpretation Comments VANCOMYCIN RANDOM (BEAKER) (test 16.5 ug/mL code = 523) Reference Range: No NormalsOperator ID - DANITZA LPOCT-GLUCOSE [id number] 11:46:40 Test Item Value Reference Range Interpretation Comments POC-GLUCOSE METER 89 mg/dL 70-110 : TESTED A T [facility] 6720 (BEAKER) (test code = [facility], 1538) 89617: 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 Operator/Techni estefani ID = [id number] for Indy Hodgson POCT-GLUCOSE [id number] 09:19:21 Test Item Value Reference Range Interpretation Comments POC-GLUCOSE METER 85 mg/dL 70-110 : TESTED A T [facility] 6720 (BEAKER) (test code = [facility], 1538) 18789: 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 Operator/Techni estefani ID = [id number] for Indy Hodgson BLOOD [id number] 02:00:49 Test Item Value Reference Range Interpretation Comments CULTURE (BEAKER) (test No growth in 5 days code = 1095) BLOOD [id number] 02:00:48 Test Item Value Reference Range Interpretation Comments CULTURE (BEAKER) (test No growth in 5 days code = 1095) POCT-GLUCOSE [id number] 16:43:34 Test Item Value Reference Range Interpretation Comments POC-GLUCOSE METER 121 mg/dL 70-110 H : TESTED A T [facility] 6720 (BEAKER) (test code = [facility], 1538) 41949: 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 Operator/Techni estefani ID = [id number] for Jewels Tavarez POCT-GLUCOSE [id number] 11:35:53 Test Item Value Reference Range Interpretation Comments POC-GLUCOSE METER 146 mg/dL 70-110 H : TESTED A T [facility] 6720 (BEAKER) (test code = [facility], 1538) 69026: 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 Operator/Techni estefani ID = [id number] for Jewels Tavarez BASIC METABOLIC [id number] 10:24:11 Test Item Value Reference Range Interpretation [...] S NOT APPLICABLE FOR DIALYSIS PATIEN TS. 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 Operator ID - PIAYA LPOCT-GLUCOSE [id number] 07:12:16 Test Item Value Reference Range Interpretation Comments POC-GLUCOSE METER 100 mg/dL 70-110 : TESTED A T [facility] 6720 (BEAKER) (test code = [facility], 1538) 96570: 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 Operator/Techni estefani ID = [id number] for KAREN JULIAN SPIN/CONCENTRATION [id number] 06:33:09 Test Item Value Reference Range Interpretation Comments CONCENTRATION CHARGED (BEAKER) (test Done code = 2657) CBC W/PLT COUNT & AUTO [id number] 04:14:18 Test Item Value Reference Range Interpretation [...] PERCENT (BEAKER) (test code = 2801) POCT-GLUCOSE [id number] 23:58:47 Test Item Value Reference Range Interpretation Comments POC-GLUCOSE METER 154 mg/dL 70-110 H : TESTED A T [facility] 6720 (BEAKER) (test code = [facility], 153) 38864: 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 Operator/Techni estefani ID = [id number] for FARHAN AHAKAREN Lo [id number] 18:10:11 Test Item Value Reference Range Interpretation Comments FERRITIN (BEAKER) (test code = 776.18 ng/mL 5.00-275.00 H 361) 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 Operator ID - FSEIRON, TIBC, % SAT. (WITHOUT FERRITIN)2021-03-02 17:49:09 Test Item Value Reference Range Interpretation Comments IRON (BEAKER) (test code = 547) 33.0 ug/dL 40.0-160.0 L TOTAL IRON BINDING CAPACITY 180 ug/dL 250-450 L (BEAKER) (test code = 769) IRON % SATURATION (2) (BEAKER) 18 % 20-55 L (test code = 2590) 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 Operator ID - [id number] 17:46:44 Test Item Value Reference Range Interpretation Comments PHOSPHORUS (BEAKER) (test code = 4.4 mg/dL 2.3-4.7 604) 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 Operator ID - FSEPOCT-GLUCOSE [id number] 16:19:13 Test Item Value Reference Range Interpretation Comments POC-GLUCOSE METER 113 mg/dL 70-110 H : TESTED A T [facility] 6720 (BEAKER) (test code = [facility], 153) 05761: 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 Operator/Techni estefani ID = [id number] for MelizaDesmond castellanos ssy POCT-GLUCOSE [id number] 11:25:41 Test Item Value Reference Range Interpretation Comments POC-GLUCOSE METER 85 mg/dL 70-110 : TESTED A T [facility] 6720 (BEAKER) (test code = [facility], 153) 01618: 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 Operator/Techni estefani ID = [id number] for Avery Mendoza CBC W/PLT COUNT & AUTO [id number] 08:28:03 Test Item Value Reference Range Interpretation [...] (BEAKER) (test code = 2801) BASIC METABOLIC [id number] 05:41:27 Test Item Value Reference Range Interpretation [...] S NOT APPLICABLE FOR DIALYSIS PATIEN TS. 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 Operator ID - DBPOCT-GLUCOSE [id number] 21:49:33 Test Item Value Reference Range Interpretation Comments POC-GLUCOSE METER 169 mg/dL 70-110 H : TESTED A T [facility] 6720 (BEAKER) (test code = [facility] [place], 1538) 04367: 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 Operator/Techni estefani ID = [id number] for Ramonita Prado RAD, CHEST, 1 VIEW, NON [id number] 18:21:00Reason for exam:->preopShould this be performed at the bedside?->Yes [facility] : 1960 Sex: MFINAL REPORTPATIENT ID: [id number] TECHNIQUE: Frontal view of the chest. INDICATION: preop. COMPARISON: Chest radiograph from 01/06/2020. FINDINGS: LINES/TUBES: None. LUNGS: The lungs are well inflated and clear. No consolidation or pulmonary edema. PLEURA: No pneumothorax or significant pleural effusion. HEART AND MEDIASTINUM: The cardiac silhouette is normal in size. SOFT TISSUES AND BONES: Prior median sternotomy. IMPRESSION:No acute intrathoracic abnormality. Signed: Srinivas De La Torre MDReport Verified Date/Time: 03/01/2021 18:21:46 Reading Location: [facility] C013Y CT Body Reading Room POCT-GLUCOSE [id number] 16:59:29 Test Item Value Reference Range Interpretation Comments POC-GLUCOSE METER 109 mg/dL 70-110 : TESTED A T [facility] 6720 (BEAKER) (test code = [facility], 1538) 20191: 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 Operator/Techni estefani ID = [id number] for Indy Stevenson POCT-GLUCOSE [id number] 11:51:04 Test Item Value Reference Range Interpretation Comments POC-GLUCOSE METER 103 mg/dL 70-110 : TESTED A T [facility] 6720 (BEAKER) (test code = [facility], 1538) 81745: 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 Operator/Techni estefani ID = [id number] for Indy Stevenson BASIC METABOLIC [id number] 10:02:41 Test Item Value Reference Range Interpretation [...] S NOT APPLICABLE FOR DIALYSIS PATIEN TS. 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 Operator ID - DBPOCT-GLUCOSE [id number] 08:04:13 Test Item Value Reference Range Interpretation Comments POC-GLUCOSE METER 98 mg/dL 70-110 : TESTED A T [facility] 6720 (BEAKER) (test code = [facility] [place], 1538) 39038: 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 Operator/Techni estefani ID = [id number] for Indy Hodgson BASIC METABOLIC [id number] 06:12:22 Test Item Value Reference Range Interpretation [...] S NOT APPLICABLE FOR DIALYSIS PATIEN TS. 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 Operator ID - DBCBC W/PLT COUNT & AUTO [id number] 04:41:19 Test Item Value Reference Range Interpretation [...] PERCENT (BEAKER) (test code = 2801) POCT-GLUCOSE [id number] 21:22:14 Test Item Value Reference Range Interpretation Comments POC-GLUCOSE METER 133 mg/dL 70-110 H : TESTED A T [facility] 6720 (BEAKER) (test code = [facility] [place], 1538) 27661: 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 Operator/Techni estefani ID = [id number] for Ramonita Prado POCT-GLUCOSE [id number] 15:53:46 Test Item Value Reference Range Interpretation Comments POC-GLUCOSE METER 196 mg/dL 70-110 H : TESTED A T [facility] 6720 (BEAKER) (test code = [facility], 1538) 43784: 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 Operator/Techni estefani ID = [id number] for Inyd Stevenson POCT-GLUCOSE [id number] 12:54:21 Test Item Value Reference Range Interpretation Comments POC-GLUCOSE METER 176 mg/dL 70-110 H : TESTED A T [facility] 6720 (BEAKER) (test code = [facility], 1538) 94687: 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 Operator/Techni estefani ID = [id number] for Indy Stevenson POCT-GLUCOSE [id number] 08:27:05 Test Item Value Reference Range Interpretation Comments POC-GLUCOSE METER 119 mg/dL 70-110 H : TESTED A T [facility] 6720 (BEAKER) (test code = [facility], 1538) 98795: 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 Operator/Techni estefani ID = [id number] for Indy Stevenson RAD, FOOT, 2 VIEWS, [id number] 07:46:00Is this procedure to be performed with weight bearing?->Non-Weight BearingReason for exam:->chronic osteo of right footL[facility]: DAY[facility]AL[facility] : 1960 Sex: MFINAL REPORTPATIENT ID: [id number] Radiograph of the right foot Reason for exam: chronic osteo of right foot Comparison: September 16, 2020 Discussion: Status post transmetatarsal amputation. There is apparent soft tissue defect at the stump. A few small lucencies are noted within the metatarsal remnants, which may reflect osteomyelitis. A skin staple is noted plantar to the calcaneus. There is a bony fragment dorsal to the calcaneal tuberosity. There is advanced peripheral vascular calcification. Signed: Deepti Hutsonort Verified Date/Time: 02/28/2021 07:46:26 Reading Location: [facility] C0X Ortho Consult Reading Room POCT-GLUCOSE [id number] 23:55:52 Test Item Value Reference Range Interpretation Comments POC-GLUCOSE METER 129 mg/dL 70-110 H : TESTED A T [facility] 6720 (BEAKER) (test code = DASIA QUISPE [place], 1538) 44023: 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 Operator/Techni estefani ID = [id number] for ON UOHA, ANTONY VANCOMYCIN LEVEL, [id number] 23:14:57 Test Item Value Reference Range Interpretation Comments VANCOMYCIN RANDOM (BEAKER) (test 20.5 ug/mL code = 523) Reference Range: No NormalsOperator ID - BASSEM WSARS-COV2/RT-PCR ([facility])2021-02-27 22:54:17 Test Item Value Reference Range Interpretation Comments SARS-COV2/RT-PCR (test Negative Not Detected, Negative, code = 7299864) See external report for linked test SARS-COV-2 PERFORMING LAB [facility] KEELY (test code = 7156789) Negative result for this test determines that [...] justifying the authorization of the emergency use ofin vitro diagnostic tests for detection and/or diagnosis of COVID-19 is terminated under Section 564(b)(2) of the Act or the EUA is revoked under Section 564(g) of the Act.Fact Sheet for Healthcare Prov iders:https://www.Carebase/sites/default/files/product/documents/Fact_Sheet_HC _Gusanxgib_Hkhz_IRMS-BoB-9.pdfFact Sheet for Healthcare Patients:https://www.Carebase/sites/default/files/product/docume nts/Gezz_Kqadt_Gugjavql_Eyhi_YTQA-JrU-4.pdfPerforming Laboratory:[facility], [place] [address]PAYPLSPAV B SURFACE [id number] 21:03:43 Test Item Value Reference Range Interpretation Comments HEPATITIS B SURFACE ANTIGEN (2) Nonreactive Nonreactive (BEAKER) (test code = 2585) Specimen is considered negative for HBsAg.POCT-GLUCOSE [id number] 12:44:24 Test Item Value Reference Range Interpretation Comments POC-GLUCOSE METER 127 mg/dL 70-110 H : TESTED A T [facility] 6720 (BEAKER) (test code = [facility], 1538) 86542: 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 Operator/Techni estefani ID = [id number] for Indy Stevenson POCT-GLUCOSE [id number] 09:35:05 Test Item Value Reference Range Interpretation Comments POC-GLUCOSE METER 102 mg/dL 70-110 : TESTED A T [facility] 6720 (BEAKER) (test code = [facility], 1538) 54884: 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 Operator/Techni estefani ID = [id number] for Indy Stevenson COMPREHENSIVE METABOLIC [id number] 00:02:18 Test Item Value Reference Range Interpretation [...] S NOT APPLICABLE FOR DIALYSIS PATIEN TS. 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 Operator ID - PIAYA LC-REACTIVE [id number] 00:01:52 Test Item Value Reference Range Interpretation Comments C-REACTIVE PROTEIN (BEAKER) (test 10.77 mg/dL 0.00-0.50 H code = 676) 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 Operator ID - PIAYA [id number] 00:01:51 Test Item Value Reference Range Interpretation Comments PHOSPHORUS (BEAKER) (test code = 7.0 mg/dL 2.3-4.7 H 604) 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 Operator ID - PIAYA [id number] 00:01:50 Test Item Value Reference Range Interpretation Comments MAGNESIUM (BEAKER) (test code = 2.2 mg/dL 1.6-2.6 627) 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 Operator SAVANNA BOSCH LLACTIC ACID, [id number] 23:54:08 Test Item Value Reference Range Interpretation Comments LACTATE BLOOD VENOUS (2) (BEAKER) 1.17 mmol/L 0.50-2.20 (test code = 2872) 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 Operator ID Benjie BOSCH [id number] 23:40:06 Test Item Value Reference Range Interpretation Comments PARTIAL THROMBOPLASTIN TIME 44.1 seconds 22.5-36.0 H (BEAKER) (test code = 760) PROTHROMBIN [id number] 23:39:04 Test Item Value Reference Range Interpretation Comments PROTIME (BEAKER) 16.0 seconds 11.9-14.2 H (test code = 759) INR (BEAKER) (test 1.30 See_Comment [Automat ed message] code = 370) The system PlayerPro generated this result transmitted ref erence range: <=5.90. The reference range was not used to int erpret this result as normal/abnormal . RECOMMENDED COUMADIN/WARFARIN INR THERAPY RANGESSTANDARD DOSE: 2.0 - 3.0 Includes: PROPHYLAXIS for venous thrombosis, systemic embolization; TREATMENT for venous thrombosis and/or pulmonary embolus.HIGH RISK: Target INR is 2.5-3.5 for patients with mechanical heart valves.CBC W/PLT COUNT & AUTO [id number] 23:30:06 Test Item Value Reference Range Interpretation [...] code = 994) seen FUNGUS CULTURE + [id number] 01:34:00 Test Item Value Reference Range Interpretation Comments CULTURE (BEAKER) (test No fungus isolated in code = 1095) 28 days FUNGUS SMEAR (BEAKER) No fungi seen (test code = 1406) FUNGUS CULTURE + [id number] 01:24:00 Test Item Value Reference Range Interpretation Comments CULTURE (BEAKER) (test No fungus isolated in code = 1095) 28 days FUNGUS SMEAR (BEAKER) No fungi seen (test code = 1406) SURGICALLY OBTAINED CULTURE + GRAM [id number] 16:50:00 Test Item Value Reference Interpretation Comments [...] to previous cultur e ofProvidencia rettgeri CULTURE (Unutility ElectricAKER) A 1+ Beta-hem olytic (test code = [...] to previous cultur e ofEnterococcus faecalis CULTURE (Unutility ElectricAKER) A 1+ Same org anism has (test [...] No organisms (BEAKER) (test code seen = 783052) GRAM STAIN RESULT No organisms (BEAKER) (test code seen = 734749) POCT-GLUCOSE [id number] 21:10:00 Test Item Value Reference Range Interpretation Comments POC-GLUCOSE METER 142 mg/dL 70-110 H : TESTED A T [facility] 6720 (BEAKER) (test code = [facility], 153) 47527: 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 Operator/Techni estefani ID = [id number] for CA RBAJAL, TIMA POCT-GLUCOSE [id number] 11:54:00 Test Item Value Reference Range Interpretation Comments POC-GLUCOSE METER 103 mg/dL 70-110 : TESTED A T [facility] 6720 (BEAKER) (test code = [facility], 153) 43053: 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 Operator/Techni estefani ID = [id number] for SA NTOS, JACOB POCT-GLUCOSE [id number] 08:41:00 Test Item Value Reference Range Interpretation Comments POC-GLUCOSE METER 83 mg/dL 70-110 : TESTED A T [facility] 6720 (BEAKER) (test code = [facility], 153) 38447: 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 Operator/Techni estefani ID = [id number] for QUANG OS, JACOB POCT-GLUCOSE [id number] 07:07:00 Test Item Value Reference Range Interpretation Comments POC-GLUCOSE METER 68 mg/dL 70-110 L : TESTED A T [facility] 6720 (BEAKER) (test code = [facility], 153) 27690: 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 Operator/Techni estefani ID = [id number] for TEJINDER KITCHEN CBC (HEMOGRAM ONLY)2020-10-03 06:23:00 [...] 0-0 (BEAKER) (test code = 413) POCT-GLUCOSE [id number] 17:51:00 Test Item Value Reference Range Interpretation Comments POC-GLUCOSE METER 141 mg/dL 70-110 H : TESTED A T [facility] 6720 ([facility]) (test code = DASIA Garcia [facility], 1538) 67721: 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 Operator/Techni estefani ID = [id number] for Ronald Coffman TISSUE [id number] 13:40:00Surgical Pathology Report Case: [id number] Authorizing Provider: Star Cloud DPM Collected: 09/20/2020 10:59 AM Ordering Location: [address] Received: 09/22/2020 08:28 AM Service Pathologist: Saira Chávez MD Specimen: Bone, Bone Eschar Soft Tissue Right Foot ESCHAR AND SOFT TISSUE, RIGHT FOOT, EXCISION: - SKIN AND SOFT TISSUE WITH GANGRENOUS NECROSIS,, ABSECESS AND FIBRINOPURULENT EXUDATE - GMS STAIN NEGATIVE FOR FUNGAL ORGANISM Signing Pathologist Direct Phone Line: [phone] ctronically signed by Saira Chávez MD on 10/02/2020 at 1:40 PMCorrelation with culture study is recommended.04154, 73144Jluptqvo ulcer, forefoot leftBone tissue, bone eschar soft tissue right foot A. Received are multiple pieces of baca-black, flat, necrotic skin and soft tissue from 0.5 to 2 x 2 cm excised to a depth of less than 0.1 cm. Bath Steward/Stewardess sections are submitted in cassette A1. KM/ewThe interpretation of this case included the use of immunohistochemistry or special stains. GMS- NegativeControl Slides Examined: In-house known positive controls were evaluated along with the test tissue. Th justin control slides run alongside of the patients sample show appropriate staining. Internal positiveand negative controls when available are evaluated Immunohistochemistry technical testing was performed at [facility] Laboratory where it was developed and [...] to perform high complexity clinical laboratory testing.POCT-GLUCOSE [id number] 13:28:00 Test Item Value Reference Range Interpretation Comments POC-GLUCOSE METER 77 mg/dL 70-110 : TESTED A T [facility] 6720 ([facility]) (test code = [facility], 1538) 59932: 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 Operator/Techni estefani ID = [id number] for Ronald Brown [id number] 12:03:00 Test Item Value Reference Range Interpretation Comments ACTIVATED CLOTTING TIME 323 sec : 74 -137 seconds, ([facility]) (test code = Baseli ne: TESTED AT 441) [facility] [address] [facility], 770 30: 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 Operator/Techni estefani ID = [id number] for AMADA BOLDEN POCT-GLUCOSE [id number] 07:25:00 Test Item Value Reference Range Interpretation Comments POC-GLUCOSE METER 73 mg/dL 70-110 : TESTED A T [facility] 6720 ([facility]) (test code = [facility], 1538) 36795: 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 Operator/Techni estefani ID = [id number] for AMADA DUKES CBC (HEMOGRAM ONLY)2020-10-02 05:34:00 Test Item Value Reference Range Interpretation Comments WHITE BLOOD CELL COUNT ([facility]) 10.0 K/ L 3.5-10.5 (test code = [...] 0-0 (BEAKER) (test code = 413) POCT-GLUCOSE [id number] 01:02:00 Test Item Value Reference Range Interpretation Comments POC-GLUCOSE METER 91 mg/dL 70-110 : TESTED A T [facility] 6720 (BEAKER) (test code = [facility], 153) 66196: 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 Operator/Techni estefani ID = [id number] for Omer , Kathe POCT-GLUCOSE [id number] 22:29:00 Test Item Value Reference Range Interpretation Comments POC-GLUCOSE METER 101 mg/dL 70-110 : TESTED A T [facility] 6720 (BEAKER) (test code = [facility], 153) 58778: 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 Operator/Techni estefani ID = [id number] for Co ok, Kathe POCT-GLUCOSE [id number] 17:20:00 Test Item Value Reference Range Interpretation Comments POC-GLUCOSE METER 147 mg/dL 70-110 H : TESTED A T [facility] 6720 (BEAKER) (test code = [facility], 153) 81101: 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 Operator/Techni estefani ID = [id number] for GUNNER PANDYA POCT-GLUCOSE [id number] 12:35:00 Test Item Value Reference Range Interpretation Comments POC-GLUCOSE METER 75 mg/dL 70-110 : TESTED A T [facility] 6720 (BEAKER) (test code = [facility], 153) 56131: 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 Operator/Techni estefani ID = [id number] for GUNNER MUHAMMAD CBC (HEMOGRAM ONLY)2020-10-01 05:49:00 Test Item Value [...] 0-0 (BEAKER) (test code = 413) POCT-GLUCOSE [id number] 21:43:00 Test Item Value Reference Range Interpretation Comments POC-GLUCOSE METER 130 mg/dL 70-110 H : TESTED A T [facility] 6720 (BEAKER) (test code = [facility], 153) 18298: 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 Operator/Techni estefani ID = [id number] for Brandi kimberleySully guzman POCT-GLUCOSE [id number] 18:06:00 Test Item Value Reference Range Interpretation Comments POC-GLUCOSE METER 85 mg/dL 70-110 : TESTED A T [facility] 6720 (BEAKER) (test code = [facility], 1538) 79309: 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 Operator/Techni estefani ID = [id number] for JULY MENDOZAINA POCT-GLUCOSE [id number] 12:10:00 Test Item Value Reference Range Interpretation Comments POC-GLUCOSE METER 105 mg/dL 70-110 : TESTED A T [facility] 6720 (BEAKER) (test code = [facility], 1538) 78831: 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 Operator/Techni estefani ID = [id number] for SA CHRISOS, JACOB POCT-GLUCOSE [id number] 08:18:00 Test Item Value Reference Range Interpretation Comments POC-GLUCOSE METER 79 mg/dL 70-110 : TESTED A T [facility] 6720 (BEAKER) (test code = [facility], 1538) 29106: 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 Operator/Techni estefani ID = [id number] for QUANG OS, JACOB CBC (HEMOGRAM ONLY)2020-09-30 [...] 0-0 (BEAKER) (test code = 413) POCT-GLUCOSE [id number] 21:43:00 Test Item Value Reference Range Interpretation Comments POC-GLUCOSE METER 122 mg/dL 70-110 H : TESTED A T [facility] 6720 (BEAKER) (test code = [facility], 1538) 95817: 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 Operator/Techni estefani ID = [id number] for CA RBAJAL, TIMA POCT-GLUCOSE [id number] 16:21:00 Test Item Value Reference Range Interpretation Comments POC-GLUCOSE METER 105 mg/dL 70-110 : TESTED A T [facility] 6720 (BEAKER) (test code [facility], = 1538) 70024: 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 Operator/Techni estefani ID = [id number] for LATT IMORE - FLETCHER, COLLINS POCT-GLUCOSE [id number] 12:38:00 Test Item Value Reference Range Interpretation Comments POC-GLUCOSE METER 79 mg/dL 70-110 : TESTED A T [facility] 6720 (BEAKER) (test code = [facility], 1538) 82149: 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 Operator/Techni estefani ID = [id number] for LATT IMORE - FLETCHER, COLLINS POCT-GLUCOSE [id number] 07:57:00 Test Item Value Reference Range Interpretation Comments POC-GLUCOSE METER 84 mg/dL 70-110 : TESTED A T [facility] 6720 (BEAKER) (test code = [facility], 1538) 24471: 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 Operator/Techni estefani ID = [id number] for LATT IMORE - FLETCHER, COLLINS [id number] 05:25:00 Test Item Value Reference Range Interpretation [...] 0-0 (BEAKER) (test code = 413) POCT-GLUCOSE [id number] 21:38:00 Test Item Value Reference Range Interpretation Comments POC-GLUCOSE METER 138 mg/dL 70-110 H : TESTED A T [facility] 6720 (BEAKER) (test code = D[facility], 1538) 87066: 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 Operator/Techni estefani ID = [id number] for JAD SALGUERO POCT-GLUCOSE [id number] 17:13:00 Test Item Value Reference Range Interpretation Comments POC-GLUCOSE METER 97 mg/dL 70-110 : TESTED A T [facility] 6720 (BEAKER) (test code = [facility], 1538) 85062: 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 Operator/Techni estefani ID = [id number] for GUNNER MUHAMMAD POCT-GLUCOSE [id number] 12:15:00 Test Item Value Reference Range Interpretation Comments POC-GLUCOSE METER 105 mg/dL 70-110 : TESTED Vikas Tai [facility] 6720 (BEAKER) (test code = [facility] [place], 1538) 71692: 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 Operator/Techni estefani ID = [id number] for GUNNER PANDYA SARS-COV2/RT-PCR ([facility])2020-09-28 11:54:00 Test Item Value Reference Range Interpretation Comments SARS-COV2/RT-PCR Negative Negative The SARS-Co V-2 target (test code = 4088967) nuclei c acids are not detected in [...] below the analytical limit of detection in thisspecimen.This Xpert Xpress SARS-CoV-2/Flu/RSV test is a rapid, real-time RT-PCR test intended for the qualitative detection of nucleic acid from Xpert Xpress SARS-CoV-2/Flu/RSV in a nasopharyngeal swabspecimen collected from individuals suspected of Xpert Xpress SARS-CoV-2/Flu/RSV by their healthcareprovider. Results from [facility] Xpert Xpress SARS-CoV-2/Flu/RSV test should be correlated with the clinical history, epidemiological data, and other data available to the clinician evaluating the patient. Viral nucleic acid may persist in vivo, independent of virus viability. Detection of analyte target(s)does not imply that the corresponding virus(es) are infectious or are the causative agents for clinical symptoms.This test has not been Food and Drug Administration (FDA) cleared or approved and has been authorized by FDA under an Emergency Use Authorization (EUA). This EUA will be effective until thedeclaration that circumstances exist justifying the authorization of the emergency use of in vitro diagnostic tests for detection and/or diagnosis of COVID-19 is terminated under Section 564(b)(2) of the Act or the EUA is revoked under Section 564(g) of the Act.Fact Sheet for Healthcare Providers:https ://www.[employer]/Documents/Xpert%20Xpress%20SARS%20CoV-2/Fact%20Sheets/302-390 2%88GZZO-DVB-7%20HEALTHCARE%20PROVIDERS%20FACT%20SHEET.pdfFact Sheet for Healthcare Patients:https://www.[employer]/Docum ents/Xpert%20Xpress%20SARS%20Cov-2/Fact%20Sheets/302-3801%82EPUZ-FJQ-1%20PATIENT %20FACT%20SHEET.pdfBASIC METABOLIC [id number] 11:14:00 Test Item Value Reference Range Interpretation [...] S NOT APPLICABLE FOR DIALYSIS PATIEN TS. 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 Operator ID - ROSIANGCBC (HEMOGRAM ONLY)2020-09-28 09:37:00 Test [...] 0-0 (BEAKER) (test code = 413) POCT-GLUCOSE [id number] 16:33:00 Test Item Value Reference Range Interpretation Comments POC-GLUCOSE METER 98 mg/dL 70-110 : TESTED A T [facility] 6720 (BEAKER) (test code = [facility], 153) 72106: 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 Operator/Techni estefani ID = [id number] for JAD MICHAEL POCT-GLUCOSE [id number] 12:28:00 Test Item Value Reference Range Interpretation Comments POC-GLUCOSE METER 88 mg/dL 70-110 : TESTED A T [facility] 6720 (BEAKER) (test code = [facility], 1538) 20796: 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 Operator/Techni estefani ID = [id number] for JAD MICHAEL SURGICALLY OBTAINED CULTURE + GRAM [id number] 08:40:00 Test Item Value Reference Interpretation Comments [...] gram positive (BEAKER) (test code rods = 680610) GRAM STAIN RESULT <1+ gram positive (BEAKER) (test code cocci in clusters = 612296) POCT-GLUCOSE [id number] 07:34:00 Test Item Value Reference Range Interpretation Comments POC-GLUCOSE METER 89 mg/dL 70-110 : TESTED A T [facility] 6720 (BEAKER) (test code = [facility], 1538) 37830: 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 Operator/Techni estefani ID = [id number] for JAD MICHAEL CBC (HEMOGRAM ONLY)2020-09-27 06:32:00 [...] 0-0 (BEAKER) (test code = 413) POCT-GLUCOSE [id number] 22:02:00 Test Item Value Reference Range Interpretation Comments POC-GLUCOSE METER 156 mg/dL 70-110 H : TESTED A T [facility] 6720 (AKER) (test code = [facility], 153) 89576: 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 Operator/Techni estefani ID = [id number] for Sully Rivera POCT-GLUCOSE [id number] 12:02:00 Test Item Value Reference Range Interpretation Comments POC-GLUCOSE METER 116 mg/dL 70-110 H : TESTED A T [facility] 6720 (BEAKER) (test code = [facility], 153) 52578: 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 Operator/Techni estefani ID = [id number] for FA ITH, GUNNER POCT-GLUCOSE [id number] 08:31:00 Test Item Value Reference Range Interpretation Comments POC-GLUCOSE METER 93 mg/dL 70-110 : TESTED A T [facility] 6720 (BEAKER) (test code = [facility], 153) 90205: 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 Operator/Techni estefani ID = [id number] for FAIT H, GUNNER ANAEROBIC [id number] 07:58:00 Test Item Value Reference Range Interpretation Comments CULTURE (BEAKER) (test No anaerobes isolated code = 1095) ANAEROBIC [id number] 07:46:00 Test Item Value Reference Range Interpretation [...] 0-0 (BEAKER) (test code = 413) POCT-GLUCOSE [id number] 22:24:00 Test Item Value Reference Range Interpretation Comments POC-GLUCOSE METER 129 mg/dL 70-110 H : TESTED A T [facility] 6720 (BEAKER) (test code = [facility], 1538) 37382: 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 Operator/Techni estefani ID = [id number] for JONES REYNAJEFFREY TEJINDER POCT-GLUCOSE [id number] 17:39:00 Test Item Value Reference Range Interpretation Comments POC-GLUCOSE METER 106 mg/dL 70-110 : TESTED A T [facility] 6720 (BEAKER) (test code = [facility], 1538) 78210: 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 Operator/Techni estefani ID = [id number] for JACOB LYLES HEMOGLOBIN AND [id number] 15:48:00 Test Item Value Reference Range Interpretation Comments HEMOGLOBIN (BEAKER) (test code = 6.1 GM/DL 13.7-17.5 L 410) HEMATOCRIT (BEAKER) (test code = 20.6 % 40.1-51.0 L 411) 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 Operator ID - [id number]-GLUCOSE [id number] 11:53:00 Test Item Value Reference Range Interpretation Comments POC-GLUCOSE METER 122 mg/dL 70-110 H : TESTED A T [facility] 6720 (BEAKER) (test code = [facility], 1538) 94624: 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 Operator/Techni estefani ID = [id number] for JACOB LYLES POCT-GLUCOSE [id number] 08:02:00 Test Item Value Reference Range Interpretation Comments POC-GLUCOSE METER 105 mg/dL 70-110 : TESTED A T [facility] 6720 (BEAKER) (test code = [facility], 1538) 55255: 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 Operator/Techni estefani ID = [id number] for JACOB LYLES CBC (HEMOGRAM ONLY)2020-09-25 06:49:00 [...] 0-0 (BEAKER) (test code = 413) POCT-GLUCOSE [id number] 22:19:00 Test Item Value Reference Range Interpretation Comments POC-GLUCOSE METER 174 mg/dL 70-110 H : TESTED A T [facility] 6720 (BEAKER) (test code = [facility], 153) 76252: 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 Operator/Techni estefani ID = [id number] for Sully Rivera POCT-GLUCOSE [id number] 18:50:00 Test Item Value Reference Range Interpretation Comments POC-GLUCOSE METER 152 mg/dL 70-110 H : TESTED A T [facility] 6720 (BEAKER) (test code [facility], = 1538) 80142: 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 Operator/Techni estefani ID = [id number] for Amaury Lucio POCT-GLUCOSE [id number] 11:55:00 Test Item Value Reference Range Interpretation Comments POC-GLUCOSE METER 169 mg/dL 70-110 H : TESTED A T [facility] 6720 (BEAKER) (test code = [facility], 1538) 40445: 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 Operator/Techni estefani ID = [id number] for SA NTOS, JACOB POCT-GLUCOSE [id number] 08:28:00 Test Item Value Reference Range Interpretation Comments POC-GLUCOSE METER 110 mg/dL 70-110 : TESTED A T [facility] 6720 (BEAKER) (test code = [facility], 153) 15503: 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 Operator/Techni estefani ID = [id number] for SA NTOS, JACOB BASIC METABOLIC [id number] 07:01:00 Test Item Value Reference Range Interpretation [...] S NOT APPLICABLE FOR DIALYSIS PATIEN TS. 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 Operator ID - BASSEM [id number] 06:35:00 Test Item Value Reference Range Interpretation Comments MAGNESIUM (BEAKER) (test code = 2.2 mg/dL 1.6-2.6 627) 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 Operator ID - BASSEM [id number] 06:35:00 Test Item Value Reference Range Interpretation Comments PHOSPHORUS (BEAKER) (test code = 6.0 mg/dL 2.3-4.7 H 604) 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 Operator ID - BASSEM WCBC (HEMOGRAM ONLY)2020-09-24 05:34:00 [...] 0-0 (BEAKER) (test code = 413) POCT-GLUCOSE [id number] 05:21:00 Test Item Value Reference Range Interpretation Comments POC-GLUCOSE METER 107 mg/dL 70-110 : TESTED A T [facility] 6720 (BEAKER) (test code [facility], = 1538) 35949: 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 Operator/Techni estefani ID = [id number] for DARLYN STEEL, NARCISO POCT-GLUCOSE [id number] 20:32:00 Test Item Value Reference Range Interpretation Comments POC-GLUCOSE METER 133 mg/dL 70-110 H : TESTED A T [facility] 6720 (BEAKER) (test code = [facility], 1538) 57497: 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 Operator/Techni estefani ID = [id number] for ARUNA REYES, SJ POCT-GLUCOSE [id number] 17:23:00 Test Item Value Reference Range Interpretation Comments POC-GLUCOSE METER 141 mg/dL 70-110 H : TESTED A T [facility] 6720 (BEAKER) (test code = [facility], 1538) 93782: 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 Operator/Techni estefani ID = [id number] for GUNNER PANDYA SARS-COV2/RT-PCR ([facility])2020-09-23 16:45:00 Test Item Value Reference Range Interpretation Comments SARS-COV2/RT-PCR (test Negative Not Detected, Negative, code = 4442848) See external report for linked test SARS-COV-2 PERFORMING LAB [facility] (test code = 4703587) Negative result for this test determines that [...] justifying the authorization of the emergency use ofin vitro diagnostic tests for detection and/or diagnosis of COVID-19 is terminated under Section 564(b)(2) of the Act or the EUA is revoked under Section 564(g) of the Act.Fact Sheet for Healthcare Prov iders:https://www.Carebase/sites/default/files/product/documents/Fact_Sheet_HC _Vnocvlcxj_Tpye_IJNQ-YuM-9.pdfFact Sheet for Healthcare Patients:https://www.Carebase/sites/default/files/product/docume nts/Vgeh_Pyhme_Gqzfudsn_Euoc_BBVL-UmM-2.pdfPerforming Laboratory:[facility], [place] [address]TQNNG [id number] 12:00:00 Test Item Value Reference Range Interpretation Comments CULTURE (BEAKER) (test No growth in 5 days code = 1095) POCT-GLUCOSE [id number] 08:40:00 Test Item Value Reference Range Interpretation Comments POC-GLUCOSE METER 82 mg/dL 70-110 : TESTED A T [facility] 6720 (BEAKER) (test code = DASIA Garcia [facility], 1538) 34703: 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 Operator/Techni estefani ID = [id number] for GUNNER MUHAMMAD BASIC METABOLIC [id number] 06:29:00 Test Item Value Reference Range Interpretation [...] S NOT APPLICABLE FOR DIALYSIS PATIEN TS. 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 Operator ID - JAQUELINE [id number] 06:27:00 Test Item Value Reference Range Interpretation Comments MAGNESIUM (BEAKER) (test code = 1.9 mg/dL 1.6-2.6 627) 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 Operator ID - JAQUELINE [id number] 06:27:00 Test Item Value Reference Range Interpretation Comments PHOSPHORUS (BEAKER) (test code = 4.5 mg/dL 2.3-4.7 604) 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 Operator ID - JAQUELINE [facility] (HEMOGRAM ONLY)2020-09-23 06:08:00 [...] 0-0 (BEAKER) (test code = 413) POCT-GLUCOSE [id number] 20:54:00 Test Item Value Reference Range Interpretation Comments POC-GLUCOSE METER 111 mg/dL 70-110 H : TESTED A T [facility] 6720 (BEAKER) (test code = [facility], 1538) 11494: 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 Operator/Techni estefani ID = [id number] for SJ HERBERT POCT-GLUCOSE [id number] 17:25:00 Test Item Value Reference Range Interpretation Comments POC-GLUCOSE METER 119 mg/dL 70-110 H : TESTED A T [facility] 6720 (BEAKER) (test code = [facility], 1538) 96092: 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 Operator/Techni estefani ID = [id number] for GUNNER PANDYA BASIC METABOLIC [id number] 12:39:00 Test Item Value Reference Range Interpretation [...] S NOT APPLICABLE FOR DIALYSIS PATIEN TS. 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 Operator ID - ANTONY [id number] 12:36:00 Test Item Value Reference Range Interpretation Comments MAGNESIUM (BEAKER) (test code = 2.0 mg/dL 1.6-2.6 627) 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 Operator ID - ANTONY [id number] 12:36:00 Test Item Value Reference Range Interpretation Comments PHOSPHORUS (BEAKER) (test code = 5.8 mg/dL 2.3-4.7 H 604) 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 Operator ID - ANTONY FPOCT-GLUCOSE [id number] 12:22:00 Test Item Value Reference Range Interpretation Comments POC-GLUCOSE METER 104 mg/dL 70-110 : TESTED A T [facility] 6720 (BEAKER) (test code = [facility], 1538) 90535: 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 Operator/Techni estefani ID = [id number] for FA ITH, GUNNER POCT-GLUCOSE [id number] 08:22:00 Test Item Value Reference Range Interpretation Comments POC-GLUCOSE METER 100 mg/dL 70-110 : TESTED A T [facility] 6720 (BEAKER) (test code = [facility], 1538) 05188: 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 Operator/Techni estefani ID = [id number] for FA ITH, GUNNER POCT-GLUCOSE [id number] 21:12:00 Test Item Value Reference Range Interpretation Comments POC-GLUCOSE METER 133 mg/dL 70-110 H : TESTED A T [facility] 6720 (BEAKER) (test code = [facility], 1538) 06793: 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 Operator/Techni estefani ID = [id number] for ROSIO DUFF POCT-GLUCOSE [id number] 16:31:00 Test Item Value Reference Range Interpretation Comments POC-GLUCOSE METER 127 mg/dL 70-110 H : TESTED A T [facility] 6720 (BEAKER) (test code = [facility], 153) 51278: 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 Operator/Techni estefani ID = [id number] for Mark aimntarohit Ronald POCT-GLUCOSE [id number] 12:56:00 Test Item Value Reference Range Interpretation Comments POC-GLUCOSE METER 99 mg/dL 70-110 : TESTED A T [facility] 6720 (BEAKER) (test code = DASIA Garcia [place], 1538) 12175: 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 Operator/Techni estefani ID = [id number] for Aminata ie, Ronald BASIC METABOLIC [id number] 12:15:00 Test Item Value Reference Range Interpretation [...] S NOT APPLICABLE FOR DIALYSIS PATIEN TS. 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 Operator ID - PIAYA LWOUND CULTURE + GRAM [id number] 08:12:00 Test Item Value Reference Range Interpretation Comments CULTURE (BEAKER) A 3+ Same org anism has (test code = been isolated f rom 1095) cultures(s) of the same body site and collection date . Repeat identifi cation and susceptibil ity testing perform ed only after [facility].Refe r to previous cultur e ofEnterococcus faecalis GRAM STAIN <1+ WBCs RESULT (BEAKER) (test code = 1123) GRAM STAIN <1+ gram RESULT (BEAKER) negative rods (test code = 642334) GRAM STAIN 1+ gram positive RESULT (BEAKER) cocci in (test code = clusters 526269) WOUND CULTURE + GRAM [id number] 08:10:00 Test Item Value Reference Interpretation Comments [...] (BEAKER) (test code = cocci in pairs 561634) POCT-GLUCOSE [id number] 07:38:00 Test Item Value Reference Range Interpretation Comments POC-GLUCOSE METER 84 mg/dL 70-110 : TESTED A T [facility] 6720 (BEAKER) (test code = [facility], [facility]) 57518: 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 Operator/Techni estefani ID = [id number] for Aminata ieRonald SPIN/CONCENTRATION [id number] 06:17:00 Test Item Value Reference Range Interpretation Comments CONCENTRATION CHARGED ([facility]) (test Done code = 2657) POCT-GLUCOSE [id number] 21:46:00 Test Item Value Reference Range Interpretation Comments POC-GLUCOSE METER 122 mg/dL 70-110 H : TESTED A T [facility] 6720 ([facility]) (test code = [facility], [facility]) 51011: 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 Operator/Techni estefani ID = [id number] for Tavo Garcia POCT-GLUCOSE [id number] 17:39:00 Test Item Value Reference Range Interpretation Comments POC-GLUCOSE METER 114 mg/dL 70-110 H : TESTED A T [facility] 6720 ([facility]) (test code = [facility], [facility]) 32305: 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 Operator/Techni estefani ID = [id number] for DEMOND HODGE POCT-GLUCOSE [id number] 12:25:00 Test Item Value Reference Range Interpretation Comments POC-GLUCOSE METER 93 mg/dL 70-110 : TESTED A T [facility] 6720 ([facility]) (test code = [facility], [facility]) 40206: 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 Operator/Techni estefani ID = [id number] for ESTEBANJAD SANCHEZ POCT-GLUCOSE [id number] 11:36:00 Test Item Value Reference Range Interpretation Comments POC-GLUCOSE METER 95 mg/dL 70-110 : TESTED A T [facility] 6720 ([facility]) (test code = [facility], [facility]) 66433: 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 Operator/Techni estefani ID = [id number] for JULIO STEWART BLOOD [id number] 06:44:00 Test Item Value Reference Range Interpretation [...] gram 1123) positive cocci in clusters BLOOD [id number] 06:43:00 Test Item Value Reference Interpretation Comments [...] 1123) gram positive cocci in clusters POCT-GLUCOSE [id number] 21:17:00 Test Item Value Reference Range Interpretation Comments POC-GLUCOSE METER 160 mg/dL 70-110 H : TESTED A T [facility] 6720 ([employer]) (test [facility] = [facility], 1538) 31419: 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 Operator/Techni estefani ID = [id number] for Co ok, Kathe POCT-GLUCOSE [id number] 12:08:00 Test Item Value Reference Range Interpretation Comments POC-GLUCOSE METER 100 mg/dL 70-110 : TESTED A T [facility] 6720 (BEAKER) (test code = [facility], 1538) 20081: 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 Operator/Techni estefani ID = [id number] for SA NTOS, JACOB CBC W/PLT COUNT & AUTO [id number] 08:20:00 Test Item Value Reference Range Interpretation [...] CONCENTRATION Adequate (CELLAVISION)(BEAKER) (test code = 3438) 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 Operator ID - Lazara Bryant comments: Slide comments:POCT-GLUCOSE METER 2020-09-19 07:56:00 Test Item Value Reference Range Interpretation Comments POC-GLUCOSE METER 109 mg/dL 70-110 : TESTED A T [facility] 6720 (BEAKER) (test code = DASIA [place], 1538) 99812: 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 Operator/Techni estefani ID = [id number] for JACOB LYLES BASIC METABOLIC [id number] 06:28:00 Test Item Value Reference Range Interpretation [...] S NOT APPLICABLE FOR DIALYSIS PATIEN TS. 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 Operator ID - DANITZA [id number] 06:27:00 Test Item Value Reference Range Interpretation Comments MAGNESIUM (BEAKER) (test code = 3.0 mg/dL 1.6-2.6 H 627) 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 Operator ID - DANITZA [id number] 06:27:00 Test Item Value Reference Range Interpretation Comments PHOSPHORUS (BEAKER) (test code = 5.4 mg/dL 2.3-4.7 H 604) 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 Operator ID - DANITZA LPOCT-GLUCOSE [id number] 21:24:00 Test Item Value Reference Range Interpretation Comments POC-GLUCOSE METER 202 mg/dL 70-110 H : TESTED A T [facility] 6720 (BEAGA) (test code = [facility] [place], 1538) 83904: 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 Operator/Techni estefani ID = [id number] for SJ HERBERT SARS-COV2/RT-PCR ([facility])2020-09-18 18:45:00 Test Item Value Reference Range Interpretation Comments SARS-COV2/RT-PCR (test Negative Not Detected, Negative, code = 0683207) See external report for linked test SARS-COV-2 PERFORMING LAB [facility] (test code = 2906671) Negative result for this test determines that [...] of the Act.Fact Sheet for Healthcare Pro viders:https://www.Carebase/sites/default/files/product/documents/Fact_Sheet_H B_Qyydlpbdc_Club_XKWX-MkV-6.pdfFact Sheet for Healthcare Patients:https://www.Carebase/sites/default/files/product/docum ents/Suzg_Bdpzs_Bcwgbrww_Gmtv_ZIUK-BeI-1.pdfPerforming Laboratory:[facility], [place] [address]SWYR-XTHDBLW METER 2020-09-18 17:18:00 Test Item Value Reference Range Interpretation Comments POC-GLUCOSE METER 101 mg/dL 70-110 : TESTED A T [facility] 6720 (BEAKER) (test code = [facility], 1538) 76359: 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 Operator/Techni estefani ID = [id number] for FA ITH, GUNNER POCT-GLUCOSE [id number] 12:20:00 Test Item Value Reference Range Interpretation Comments POC-GLUCOSE METER 117 mg/dL 70-110 H : TESTED A T [facility] 6720 (BEAKER) (test code = [facility], 1538) 97745: 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 Operator/Techni estefani ID = [id number] for FA ITH, GUNNER BASIC METABOLIC [id number] 08:24:00 Test Item Value Reference Range Interpretation [...] S NOT APPLICABLE FOR DIALYSIS PATIEN TS. 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 Operator ID - DANITZA LOperator ID - ADMINPOCT-GLUCOSE [id number] 08:19:00 Test Item Value Reference Range Interpretation Comments POC-GLUCOSE METER 103 mg/dL 70-110 : TESTED A T [facility] 6720 (BEAKER) (test code = D[facility] [place], 1538) 26997: 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 Operator/Techni estefani ID = [id number] for GUNNER PANDYA [id number] 07:33:00 Test Item Value Reference Range Interpretation Comments MAGNESIUM (BEAKER) 2.9 mg/dL 1.6-2.6 H Specimen slightly (test code = 627) hemolyzed 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 Operator ID - DANITZA [id number] 07:33:00 Test Item Value Reference Range Interpretation Comments PHOSPHORUS (BEAKER) 3.6 mg/dL 2.3-4.7 Specimen slightly (test code = 604) hemolyzed 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 Operator ID - DANITZA LCBC W/PLT COUNT & AUTO [id number] 04:53:00 Test Item Value Reference Range Interpretation [...] PERCENT (BEAKER) (test code = 2801) POCT-GLUCOSE [id number] 21:15:00 Test Item Value Reference Range Interpretation Comments POC-GLUCOSE METER 115 mg/dL 70-110 H : TESTED A T [facility] 6720 (NOE) (test code = DASIA Garcia [facility], 1538) 59783: 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 Operator/Techni estefani ID = [id number] for SJ HERBERT BLOOD CULTURE IDENTIFICATION [id number] 21:10:00 Test Item Value Reference Interpretation Comments Range LISTERIA MONOCYTOGENES Not Not detected (test code = 6310501) detected STAPHYLOCOCCUS (test Detected Not detected A code = 7156708) STAPHYLOCOCCUS AUREUS Detected Not detected A Methic illin-susceptible (test code = 7596932) S. aur eus (MSSA)First-tessy e therapy: Cefazolin or Ox acillin (Oxacillin pref erred if CARPENTER REPAIR involvement ) ID CONSULTATION REQUIREDStaphyl ococcus aureus DETECTED MecA NOT DETECTED Refere nce Range: Not Detected STREPTOCOCCUS (test Not Not detected code = 3562356) detected STREPTOCOCCUS Not Not detected AGALACTIAE (GROUP B) detected (test code = 2710533) STREPTOCOCCUS Not Not detected PNEUMONIAE (test code detected = 6334325) STREPTOCOCCUS PYOGENES Not Not detected (GROUP A) (test code = detected 3061748) ACINETOBACTER Not Not detected BAUMANNII (test code = detected 8300179) HAEMOPHILUS INFLUENZAE Not Not detected (test code = 8464535) detected NEISSERIA MENINGITIDIS Not Not detected (test code = 3093616) detected ENTEROBACTERIACEAE Not Not detected (test code = 1407451) detected ENTEROBACTER CLOACOE Not Not detected COMPLEX (test code = detected 9161102) KLEBSIELLA OXYTOCA Not Not detected (test code = 6630388) detected KLEBSIELLA PNEUMONIAE Not Not detected (test code = 1650) detected PROTEUS (test code = Not Not detected 5173261) detected SERRATIA MARCESCENS Not Not detected (test code = 7983642) detected CAMI ALBICANS (test Not Not detected code = 7705070) detected CAMI GLABRATA (test Not Not detected code = 9475714) detected CAMI KRUSEI (test Not Not detected code = 3535140) detected CAMI PARAPSILOSIS Not Not detected (test code = 2191144) detected CAMI TROPICALIS Not Not detected (test code = 3024060) detected ESCHERICHIA COLI (test Not Not detected code = 5513190) detected METHICILLIN-RESISTANCE Not Not detected Note: Antimicrobial GENE (test code = detected resistance can occur via ) multiple mechan isms. A Not Detected re sult for the Zigswitch antimicrobial r esistance gene assays lance s not indicate antimi crobial susceptibility. Subculturing is required for species identification and susceptibility testing of isolates. VANCOMYCIN-RESISTANCE GENE (test code = 0729000) CARBAPENEM-RESISTANCE GENE (test code = 8888625) ENTEROCOCCUS-BEAKER Not Not detected (test code = 0576580) detected PSEUDOMONAS Not Not detected AERUGINOSA-BEAKER detected (test code = 2959326) Other bacteria and resistance markers not targeted by this PCR panel cannot be excluded; therefore clinical correlation and follow up of serology, culture results, and other molecular studies is required. The results are not intended to be used as the sole means for clinical diagnosis or patient management decisions. This sample was tested at the [facility] using the [employer] Blood Culture ID Panel. It is FDA cleared and has been verified and approved by the [facility] for clinical use. This laboratory is CLIA-certified and College ofAmerican Pathologists (CAP)-accredited to perform high complexity testing.HEPATITIS B SURFACE [id number] 18:09:00 Test Item Value Reference Range Interpretation Comments HEPATITIS B SURFACE ANTIGEN (2) Nonreactive Nonreactive (BEAKER) (test code = 2585) Specimen is considered negative for HBsAg.POCT-GLUCOSE [id number] 17:13:00 Test Item Value Reference Range Interpretation Comments POC-GLUCOSE METER 127 mg/dL 70-110 H : TESTED A T [facility] 6720 (BEAKER) (test code = [facility], 1538) 97867: 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 Operator/Techni estefani ID = [id number] for FA ITH, GUNNER POCT-GLUCOSE [id number] 12:12:00 Test Item Value Reference Range Interpretation Comments POC-GLUCOSE METER 99 mg/dL 70-110 : TESTED A T [facility] 6720 (BEAKER) (test code = [facility], 1538) 76529: 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 Operator/Techni estefani ID = [id number] for FAIT H, GUNNER CBC W/PLT COUNT & AUTO [id number] 08:34:00 Test Item Value Reference Range Interpretation [...] CONCENTRATION Adequate (CELLAVISION)(BEAKER) (test code = 3438) 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 Operator ID - Lazara Patelprudencio comments: Slide comments:[id number] 05:34:00 Test Item Value Reference Range Interpretation Comments MAGNESIUM (BEAKER) 2.8 mg/dL 1.6-2.6 H Specimen slightly (test code = 627) hemolyzed 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 Operator ID - JAQUELINE [id number] 05:34:00 Test Item Value Reference Range Interpretation Comments PHOSPHORUS (BEAKER) 4.0 mg/dL 2.3-4.7 Specimen slightly (test code = 604) hemolyzed 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 Operator ID - JAQUELINE MBASIC METABOLIC [id number] 05:34:00 Test Item Value Reference Range Interpretation [...] S NOT APPLICABLE FOR DIALYSIS PATIEN TS. 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 The residual metatarsals are shortened compared with the previous exam. There is an overlying skin defect. The margins are irregular. There seems to be a lucency in the soft tissues of the heel. A heel ulcer is not ruled out. This requires clinical correlation. There is extensive soft tissue swelling ofthe stump. Bones are osteopenic. There appears to be at least one surgical staple on the sole lower aspect of the heel. There appears to be a wound VAC in place. IMPRESSION: Status post extensive rightfoot surgery with extensive soft tissue swelling and skin defect(s). Osteomyelitis is not ruled out.Signed: Moi Feldman MDReport Verified Date/Time: 09/16/2020 20:44:14 Reading Location: [address] Consult Reading Room (CELLAVISION MANUAL DIFF)2020-09-16 [...] K/uL 0.00-0.00 H (CELLAVISION)(BEAKER) (test code = 1108) TOTAL COUNTED (BEAKER) (test code = 100 1351) PLT MORPHOLOGY (BEAKER) (test code Normal = 486) HYPERSEGMENTATION Present (CELLAVISION)(BEAKER) (test code = 0155) POIKILOCYTES (BEAKER) (test code = 1+ few 966) ELLIPTOCYTES (BEAKER) (test code = 1+ few 962) ARTIFACT (CELLAVISION)(BEAKER) Present (test code = 3432) PLATELET CONCENTRATION Adequate (CELLAVISION)(BEAKER) (test code = 3438) 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 Operator ID - Maggie comments: Slide comments:C-REACTIVE PROTEIN 2020-09-16 19:59:00 Test Item Value Reference Range Interpretation Comments C-REACTIVE PROTEIN (BEAKER) (test 10.23 mg/dL 0.00-0.50 H code = 676) 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 Operator ID - BSBASIC METABOLIC [id number] 19:59:00 Test Item Value Reference Range Interpretation [...] S NOT APPLICABLE FOR DIALYSIS PATIEN TS. 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 Operator ID - [id number] 19:56:00 Test Item Value Reference Range Interpretation [...] exclusion of thrombosis is within 95-100% range. [id number] 19:54:00 Test Item Value Reference Range Interpretation [...] for patients with mechanical heart valves.LACTIC ACID, [id number] 19:54:00 Test Item Value Reference Range Interpretation Comments LACTATE BLOOD VENOUS (2) (BEAKER) 1.16 mmol/L 0.50-2.20 (test code = 2872) 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 Operator ID - BSCBC W/PLT COUNT & AUTO [id number] 19:45:00 Test Item Value Reference Range Interpretation [...] (test code = 994) seen BASIC METABOLIC [id number] 11:06:00 Test Item Value Reference Range Interpretation [...] S NOT APPLICABLE FOR DIALYSIS PATIEN TS. 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 Operator ID - EMERSONCBC (HEMOGRAM ONLY)2020-06-19 06:37:00 Test [...] 0-0 (BEAKER) (test code = 413) SARS-COV2/RT-PCR ([facility])2020-06-16 13:14:00 Test Item Value Reference Range Interpretation Comments SARS-COV2/RT-PCR (test Negative Not Detected, Negative, code = 0880418) See external report for linked test SARS-COV-2 PERFORMING LAB [facility] (test code = 3584792) Negative result for this test determines that [...] justifying the authorization of the emergency use ofin vitro diagnostic tests for detection and/or diagnosis of COVID-19 is terminated under Section 564(b)(2) of the Act or the EUA is revoked under Section 564(g) of the Act.Fact Sheet for Healthcare Prov iders:https://www.Carebase/sites/default/files/product/documents/Fact_Sheet_HC _Fgejvrtci_Tncs_VCBN-NeP-5.pdfFact Sheet for Healthcare Patients:https://www.Carebase/sites/default/files/product/docume nts/Ayrk_Xezsn_Jufwsoqx_Gqwu_GLQE-RxX-7.pdfPerforming Laboratory:[facility], [place] [id number] 06:05:00 Test Item Value Reference Range Interpretation Comments PHOSPHORUS (NADJAAGA) (test code = 4.4 mg/dL 2.3-4.7 604) 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 Operator ID - JAQUELINE MPOCT-GLUCOSE [id number] 21:46:00 Test Item Value Reference Range Interpretation Comments POC-GLUCOSE METER 124 mg/dL 70-110 H : TESTED A T [facility] 6720 (BEAKER) (test code = [facility], 1538) 97365: 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 Operator/Techni estefani ID = [id number] for Zoraida Handley POCT-GLUCOSE [id number] 16:20:00 Test Item Value Reference Range Interpretation Comments POC-GLUCOSE METER 125 mg/dL 70-110 H : TESTED A T [facility] 6720 (BEAKER) (test code = [facility], 1538) 27924: 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 Operator/Techni estefani ID = [id number] for Jose lliams, Areiona POCT-GLUCOSE [id number] 14:24:00 Test Item Value Reference Range Interpretation Comments POC-GLUCOSE METER 77 mg/dL 70-110 : TESTED A T [facility] 6720 (BEAKER) (test code = [facility], 1538) 62172: 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 Operator/Techni estefani ID = [id number] for Cameron ia, Areiona BASIC METABOLIC [id number] 08:54:00 Test Item Value Reference Range Interpretation [...] S NOT APPLICABLE FOR DIALYSIS PATIEN TS. 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 Operator ID - EDASICBC W/PLT COUNT & AUTO [id number] 08:49:00 Test Item Value Reference Range Interpretation [...] PERCENT (BEAKER) (test code = 2801) POCT-GLUCOSE [id number] 07:58:00 Test Item Value Reference Range Interpretation Comments POC-GLUCOSE METER 75 mg/dL 70-110 : TESTED A T [facility] 6720 (BEAKER) (test code = [facility], 153) 38933: 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 Operator/Techni estefani ID = [id number] for Cameron valadez, Delontea FUNGUS CULTURE + [id number] 01:12:00 Test Item Value Reference Range Interpretation Comments CULTURE (BEAKER) A <1+ Cami (test code = duobushaemuloni i 1095) FUNGUS SMEAR No fungi seen (BEAKER) (test code = 1406) POCT-GLUCOSE [id number] 21:05:00 Test Item Value Reference Range Interpretation Comments POC-GLUCOSE METER 113 mg/dL 70-110 H : TESTED A T [facility] 6720 (BEAKER) (test code = [facility], 153) 99252: 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 Operator/Techni estefani ID = [id number] for RON GODWIN POCT-GLUCOSE [id number] 17:14:00 Test Item Value Reference Range Interpretation Comments POC-GLUCOSE METER 104 mg/dL 70-110 : TESTED A T [facility] 6720 (BEAKER) (test code = [facility], 1538) 12783: 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 Operator/Techni estefani ID = [id number] for PA RKSYLVIA, NE POCT-GLUCOSE [id number] 11:30:00 Test Item Value Reference Range Interpretation Comments POC-GLUCOSE METER 112 mg/dL 70-110 H : TESTED A T [facility] 6720 (BEAKER) (test code = [facility], 1538) 73923: 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 Operator/Techni estefani ID = [id number] for PA RKER, NE POCT-GLUCOSE [id number] 09:11:00 Test Item Value Reference Range Interpretation Comments POC-GLUCOSE METER 128 mg/dL 70-110 H : TESTED A T [facility] 6720 (BEAKER) (test code = [facility], 153) 01183: 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 Operator/Techni estefani ID = [id number] for PA RKER, NE POCT-GLUCOSE [id number] 21:56:00 Test Item Value Reference Range Interpretation Comments POC-GLUCOSE METER 120 mg/dL 70-110 H : TESTED A T [facility] 6720 (BEAKER) (test code = [facility], 1538) 19292: 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 Operator/Techni estefani ID = [id number] for Zoraida Handley POCT-GLUCOSE [id number] 11:53:00 Test Item Value Reference Range Interpretation Comments POC-GLUCOSE METER 102 mg/dL 70-110 : TESTED A T [facility] 6720 (BEAKER) (test code = [facility], 1538) 28499: 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 Operator/Techni estefani ID = [id number] for Jose rizo, Areiona POCT-GLUCOSE [id number] 08:16:00 Test Item Value Reference Range Interpretation Comments POC-GLUCOSE METER 85 mg/dL 70-110 : TESTED A T [facility] 6720 (BEAKER) (test code = [facility], 1538) 55390: 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 Operator/Techni estefani ID = [id number] for Cameron valadez, Areiona [id number] 04:45:00 Test Item Value Reference Range Interpretation Comments PHOSPHORUS (BEAKER) (test code = 5.3 mg/dL 2.3-4.7 H 604) 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 Operator ID - BSCBC W/PLT COUNT & AUTO [id number] 04:10:00 Test Item Value Reference Range Interpretation [...] PERCENT (BEAKER) (test code = 2801) POCT-GLUCOSE [id number] 21:00:00 Test Item Value Reference Range Interpretation Comments POC-GLUCOSE METER 145 mg/dL 70-110 H : TESTED A T [facility] 6720 (BEAKER) (test code = [facility], 153) 98833: 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 Operator/Techni estefani ID = [id number] for REJI MONTOYA [id number] 17:48:00 Test Item Value Reference Range Interpretation Comments PHOSPHORUS (BEAKER) (test code = 4.9 mg/dL 2.3-4.7 H 604) 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 Operator ID - BSPOCT-GLUCOSE [id number] 15:50:00 Test Item Value Reference Range Interpretation Comments POC-GLUCOSE METER 116 mg/dL 70-110 H : TESTED A T [facility] 6720 (BEAKER) (test code = [facility], 153) 95886: 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 Operator/Techni estefani ID = [id number] for Wi lliams, Areiona POCT-GLUCOSE [id number] 12:42:00 Test Item Value Reference Range Interpretation Comments POC-GLUCOSE METER 86 mg/dL 70-110 : TESTED A T [facility] 6720 (BEAKER) (test code = [facility], 1538) 18328: 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 Operator/Techni estefani ID = [id number] for Cameron iams, Areiona POCT-GLUCOSE [id number] 08:21:00 Test Item Value Reference Range Interpretation Comments POC-GLUCOSE METER 108 mg/dL 70-110 : TESTED A T [facility] 6720 (BEAKER) (test code = [facility], 1538) 47945: 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 Operator/Techni estefani ID = [id number] for Wi lliams, Areiona POCT-GLUCOSE [id number] 22:07:00 Test Item Value Reference Range Interpretation Comments POC-GLUCOSE METER 118 mg/dL 70-110 H : TESTED A T [facility] 6720 ([facility]) (test code = [facility], [facility]8) 63296: 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 Operator/Techni estefani ID = [id number] for Se diamondano, Zoraida POCT-GLUCOSE [id number] 12:30:00 Test Item Value Reference Range Interpretation Comments POC-GLUCOSE METER 93 mg/dL 70-110 : Notified RN/MD: TESTED ([facility]) (test code = AT [facility] [address] [place] [address]) [facility], [facility] 30: 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 Operator/Techni estefani ID = [id number] for KELSI , COSHA POCT-GLUCOSE [id number] 07:55:00 Test Item Value Reference Range Interpretation Comments POC-GLUCOSE METER 81 mg/dL 70-110 : Notified RN/MD: TESTED ([facility]) (test code = AT [facility] [address] [place] [address]) [facility], [facility] 30: 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 Operator/Techni estefani ID = [id number] for KELSI , COSHA POCT-GLUCOSE [id number] 22:01:00 Test Item Value Reference Range Interpretation Comments POC-GLUCOSE METER 104 mg/dL 70-110 : TESTED A T [facility] 6720 ([facility]) (test code = [facility], 1538) 28120: 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 Operator/Techni estefani ID = [id number] for MO PRINCE (V)CHRIS POCT-GLUCOSE [id number] 15:55:00 Test Item Value Reference Range Interpretation Comments POC-GLUCOSE METER 95 mg/dL 70-110 : TESTED A T [facility] 6720 (BEAKER) (test code = [facility], [facility]8) 87267: 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 Operator/Techni estefani ID = [id number] for David s, Betzy POCT-GLUCOSE [id number] 11:37:00 Test Item Value Reference Range Interpretation Comments POC-GLUCOSE METER 82 mg/dL 70-110 : TESTED A T [facility] 6720 (BEAKER) (test code = [facility], [facility]8) 96168: Oliving Machine Operator/Techni estefani ID = [id number] for David s, Betzy POCT-GLUCOSE [id number] 07:28:00 Test Item Value Reference Range Interpretation Comments POC-GLUCOSE METER 75 mg/dL 70-110 : TESTED A T [facility] 6720 (BEAKER) (test code = [facility], [facility]8) 47406: Oliving Machine Operator/Techni estefani ID = [id number] for David s, Betzy POCT-GLUCOSE [id number] 22:59:00 Test Item Value Reference Range Interpretation Comments POC-GLUCOSE METER 104 mg/dL 70-110 : TESTED A T [facility] 6720 (BEAKER) (test code = [facility], [facility]8) 24280: Oliving Machine Operator/Techni estefani ID = [id number] for JAMIL BORJAA POCT-GLUCOSE [id number] 16:15:00 Test Item Value Reference Range Interpretation Comments POC-GLUCOSE METER 121 mg/dL 70-110 H : TESTED A T [facility] 6720 (BEAKER) (test code = [facility], 1538) 94369: Oliving Machine Operator/Techni estefani ID = [id number] for Da vis, Betzy POCT-GLUCOSE [id number] 11:53:00 Test Item Value Reference Range Interpretation Comments POC-GLUCOSE METER 110 mg/dL 70-110 : TESTED A T [facility] 6720 (BEAKER) (test code = [facility], [facility]8) 14489: Oliving Machine Operator/Techni estefani ID = [id number] for Da vis, Betzy POCT-GLUCOSE [id number] 07:58:00 Test Item Value Reference Range Interpretation Comments POC-GLUCOSE METER 72 mg/dL 70-110 : TESTED A T [facility] 6720 (BEAKER) (test code = [facility] [place], 1538) 07676: Oliving Machine Operator/Techni estefani ID = [id number] for Betzy Marie BASIC METABOLIC [id number] 05:59:00 Test Item Value Reference Range Interpretation [...] S NOT APPLICABLE FOR DIALYSIS PATIEN TS. Oliving Machine Operator ID - EDASICBC W/PLT COUNT & AUTO [id number] 05:30:00 Test Item Value Reference Range Interpretation [...] PERCENT (BEAKER) (test code = 2801) POCT-GLUCOSE [id number] 22:53:00 Test Item Value Reference Range Interpretation Comments POC-GLUCOSE METER 90 mg/dL 70-110 : TESTED A T [facility] 6720 (BEAKER) (test code = [facility], 1538) 00079: Oliving Machine Operator/Techni estefani ID = [id number] for REJI SWANSON POCT-GLUCOSE [id number] 15:59:00 Test Item Value Reference Range Interpretation Comments POC-GLUCOSE METER 109 mg/dL 70-110 : TESTED A T [facility] 6720 (BEAKER) (test code = [facility], 1538) 84020: Oliving Machine Operator/Techni estefani ID = [id number] for Da vis, Betzy POCT-GLUCOSE [id number] 21:40:00 Test Item Value Reference Range Interpretation Comments POC-GLUCOSE METER 110 mg/dL 70-110 : TESTED A T [facility] 6720 (BEAKER) (test code = [facility], 153) 68683: Oliving Machine Operator/Techni estefani ID = [id number] for REJI MONTOYA POCT-GLUCOSE [id number] 16:44:00 Test Item Value Reference Range Interpretation Comments POC-GLUCOSE METER 110 mg/dL 70-110 : TESTED A T [facility] 6720 (BEAKER) (test code [facility], = 1538) 68899: Oliving Machine Operator/Techni estefani ID = [id number] for WILS ON, SHASTANIE POCT-GLUCOSE [id number] 11:45:00 Test Item Value Reference Range Interpretation Comments POC-GLUCOSE METER 88 mg/dL 70-110 : TESTED A T [facility] 6720 (BEAKER) (test code = [facility], 153) 73254: Oliving Machine Operator/Techni estefani ID = [id number] for WILS ON, SHASTANIE POCT-GLUCOSE [id number] 08:02:00 Test Item Value Reference Range Interpretation Comments POC-GLUCOSE METER 88 mg/dL 70-110 : TESTED A T [facility] 6720 (BEAKER) (test code = [facility], 153) 77860: Oliving Machine Operator/Techni estefani ID = [id number] for VICKIE N, MARLENI POCT-GLUCOSE [id number] 21:05:00 Test Item Value Reference Range Interpretation Comments POC-GLUCOSE METER 118 mg/dL 70-110 H : TESTED A T [facility] 6720 (BEAKER) (test code = [facility], 1538) 38947: Oliving Machine Operator/Techni estefani ID = [id number] for BRAYDEN DIAZN, BEAU POCT-GLUCOSE [id number] 16:34:00 Test Item Value Reference Range Interpretation Comments POC-GLUCOSE METER 131 mg/dL 70-110 H : TESTED A T [facility] 6720 (BEAKER) (test code = [facility], 153) 01623: Oliving Machine Operator/Techni estefani ID = [id number] for VIKKI CABRERAIA ANAEROBIC [id number] 11:42:00 Test Item Value Reference Range Interpretation Comments CULTURE (BEAKER) (test No anaerobes isolated code = 1095) POCT-GLUCOSE [id number] 21:38:00 Test Item Value Reference Range Interpretation Comments POC-GLUCOSE METER 111 mg/dL 70-110 H : TESTED A T [facility] 6720 (BEAKER) (test code = [facility], 153) 92517: Oliving Machine Operator/Techni estefani ID = [id number] for BEAU BALDERAS POCT-GLUCOSE [id number] 17:39:00 Test Item Value Reference Range Interpretation Comments POC-GLUCOSE METER 106 mg/dL 70-110 : TESTED A T [facility] 6720 (BEAKER) (test code = [facility], 153) 96032: Oliving Machine Operator/Techni estefani ID = [id number] for LEW VAZQUEZ, NE POCT-GLUCOSE [id number] 11:36:00 Test Item Value Reference Range Interpretation Comments POC-GLUCOSE METER 109 mg/dL 70-110 : TESTED A T [facility] 6720 (BEAKER) (test code = [facility], 153) 95727: Oliving Machine Operator/Techni estefani ID = [id number] for LEW RKER, NE POCT-GLUCOSE [id number] 08:59:00 Test Item Value Reference Range Interpretation Comments POC-GLUCOSE METER 75 mg/dL 70-110 : TESTED A T [facility] 6720 (BEAKER) (test code = [facility], 153) 69983: Oliving Machine Operator/Techni estefani ID = [id number] for FAITH WARD, NE POCT-GLUCOSE [id number] 21:58:00 Test Item Value Reference Range Interpretation Comments POC-GLUCOSE METER 103 mg/dL 70-110 : TESTED A T [facility] 6720 (BEAKER) (test code = [facility], 153) 35774: Oliving Machine Operator/Techni estefani ID = [id number] for Zoraida Handley POCT-GLUCOSE [id number] 17:38:00 Test Item Value Reference Range Interpretation Comments POC-GLUCOSE METER 107 mg/dL 70-110 : TESTED A T [facility] 6720 (BEAKER) (test code = [facility], 1538) 83946: Oliving Machine Operator/Techni estefani ID = [id number] for PRINCESS LAURA POCT-GLUCOSE [id number] 12:56:00 Test Item Value Reference Range Interpretation Comments POC-GLUCOSE METER 125 mg/dL 70-110 H : TESTED A T [facility] 6720 (NOE) (test code = [facility], 1538) 67498: Oliving Machine Operator/Techni estefani ID = [id number] for PRINCESS LAURA SARS-COV2/RT-PCR ([facility])2020-06-02 09:39:00 Test Item Value Reference Range Interpretation Comments SARS-COV2/RT-PCR (test Negative Not Detected, Negative, code = 8939926) See external report for linked test SARS-COV-2 PERFORMING LAB [facility] (test code = 2404992) Negative result for this test determines that [...] justifying the authorization of the emergency use ofin vitro diagnostic tests for detection and/or diagnosis of COVID-19 is terminated under Section 564(b)(2) of the Act or the EUA is revoked under Section 564(g) of the Act.Fact Sheet for Healthcare Prov iders:https://www.Carebase/sites/default/files/product/documents/Fact_Sheet_HC _Fsjnxclih_Zwdg_BZHR-XwQ-0.pdfFact Sheet for Healthcare Patients:https://www.Carebase/sites/default/files/product/docume nts/Mici_Wgiue_Gvdlmpcz_Fuak_DXVR-SwN-4.pdfPerforming Laboratory:[facility], [place] [address]YBUE-YZZCBHG METER 2020-06-02 08:48:00 Test Item Value Reference Range Interpretation Comments POC-GLUCOSE METER 124 mg/dL 70-110 H : TESTED A T [facility] 6720 (BEAKER) (test code = [facility], 1538) 99257: Oliving Machine Operator/Techni estefani ID = [id number] for LEW VAZQUEZ [facility] BASIC METABOLIC [id number] 08:14:00 Test Item Value Reference Range Interpretation [...] S NOT APPLICABLE FOR DIALYSIS PATIEN TS. Oliving Machine Operator ID - TIAGO [id number] 08:10:00 Test Item Value Reference Range Interpretation Comments PHOSPHORUS (BEAKER) (test code = 7.0 mg/dL 2.3-4.7 H 604) Oliving Machine Operator ID - TIAGO CVITAMIN B12 AND [id number] 07:23:00 Test Item Value Reference Range Interpretation Comments VITAMIN B12 (BEAKER) 441 pg/mL 213-816 (test code = 774) FOLATE (BEAKER) 5.90 ng/mL See_Comment L [Automated message] (test code = 362) The system which generated this result transmitted ref erence range: >=7.00. The reference range was not used to interpr et this result as normal/abnormal . Oliving Machine Operator ID - JAQUELINE MAURO, TIBC, % SAT. (WITHOUT FERRITIN)2020-06-02 06:48:00 Test Item Value Reference Range Interpretation Comments IRON (BEAKER) (test code = 547) 29.0 ug/dL 40.0-160.0 L TOTAL IRON BINDING CAPACITY 166 ug/dL 250-450 L (BEAKER) (test code = 769) IRON % SATURATION (2) (BEAKER) 17 % 20-55 L (test code = 2590) Oliving Machine Operator ID - JAQUELINE MCBC (HEMOGRAM ONLY)2020-06-02 06:37:00 [...] 0-0 (BEAKER) (test code = 413) POCT-GLUCOSE [id number] 21:28:00 Test Item Value Reference Range Interpretation Comments POC-GLUCOSE METER 117 mg/dL 70-110 H : TESTED A T [facility] 6720 (BEAKER) (test code = [facility], 1538) 95964: Oliving Machine Operator/Techni estefani ID = [id number] for REJI MONTOYA POCT-GLUCOSE [id number] 17:07:00 Test Item Value Reference Range Interpretation Comments POC-GLUCOSE METER 107 mg/dL 70-110 : TESTED A T [facility] 6720 (BEAKER) (test code = [facility], 1538) 45233: Oliving Machine Operator/Techni estefani ID = [id number] for Kingsley Haley [id number] 16:04:00 Test Item Value Reference Range Interpretation Comments FERRITIN (BEAKER) (test code = 322.82 ng/mL 5.00-275.00 H 361) Oliving Machine Operator ID - DBSURGICALLY OBTAINED CULTURE + GRAM [id number] 12:53:00 Test Item Value Reference Interpretation Comments [...] gram negative (BEAKER) (test code = rods 171134) GRAM STAIN RESULT <1+ yeast (BEAKER) (test code = 465282) POCT-GLUCOSE [id number] 11:55:00 Test Item Value Reference Range Interpretation Comments POC-GLUCOSE METER 125 mg/dL 70-110 H : TESTED A T [facility] 6720 (BEAKER) (test code = [facility], 1538) 35813: Oliving Machine Operator/Techni estefani ID = [id number] for Kingsley Haley POCT-GLUCOSE [id number] 08:56:00 Test Item Value Reference Range Interpretation Comments POC-GLUCOSE METER 85 mg/dL 70-110 : TESTED A T [facility] 6720 (BEAKER) (test code = [facility], 1538) 98429: Oliving Machine Operator/Techni estefani ID = [id number] for Gabi Lagunasta POCT-GLUCOSE [id number] 22:47:00 Test Item Value Reference Range Interpretation Comments POC-GLUCOSE METER 119 mg/dL 70-110 H : TESTED A T [facility] 6720 (BEAKER) (test code = [facility], [facility]) 50036: Oliving Machine Operator/Techni estefani ID = [id number] for REJI MONTOYA POCT-GLUCOSE [id number] 16:45:00 Test Item Value Reference Range Interpretation Comments POC-GLUCOSE METER 123 mg/dL 70-110 H : TESTED A T [facility] 6720 (BEAKER) (test code = [facility], 153) 92214: Oliving Machine Operator/Techni estefani ID = [id number] for LEW VAZQUEZ, NE POCT-GLUCOSE [id number] 11:29:00 Test Item Value Reference Range Interpretation Comments POC-GLUCOSE METER 129 mg/dL 70-110 H : TESTED A T [facility] 6720 (BEAKER) (test code = [facility], 153) 95373: Oliving Machine Operator/Techni estefani ID = [id number] for PA RKER, NE POCT-GLUCOSE [id number] 08:48:00 Test Item Value Reference Range Interpretation Comments POC-GLUCOSE METER 98 mg/dL 70-110 : TESTED A T [facility] 6720 (BEAKER) (test code = [facility], 1538) 99435: Oliving Machine Operator/Techni estefani ID = [id number] for [facility] BASIC METABOLIC [id number] 06:32:00 Test Item Value Reference Range Interpretation [...] S NOT APPLICABLE FOR DIALYSIS PATIEN TS. Oliving Machine Operator ID - ADMINCBC (HEMOGRAM ONLY)2020-05-31 05:42:00 Test [...] 0-0 (BEAKER) (test code = 413) POCT-GLUCOSE [id number] 21:12:00 Test Item Value Reference Range Interpretation Comments POC-GLUCOSE METER 169 mg/dL 70-110 H : TESTED A T [facility] 6720 (BEAKER) (test code = [facility], 153) 25113: Oliving Machine Operator/Techni estefani ID = [id number] for Zoraida Handley POCT-GLUCOSE [id number] 16:05:00 Test Item Value Reference Range Interpretation Comments POC-GLUCOSE METER 158 mg/dL 70-110 H : TESTED A T [facility] 6720 (BEAKER) (test code = [facility], [facility]) 91366: Oliving Machine Operator/Techni estefani ID = [id number] for MELODY DOS SANTOS POCT-GLUCOSE [id number] 12:40:00 Test Item Value Reference Range Interpretation Comments POC-GLUCOSE METER 113 mg/dL 70-110 H : TESTED A T [facility] 6720 (BEAKER) (test code = [facility], [facility]) 59762: Oliving Machine Operator/Techni estefani ID = [id number] for MELODY DOS SANTOS SPIN/CONCENTRATION [id number] 09:31:00 Test Item Value Reference Range Interpretation Comments CONCENTRATION CHARGED (BEAKER) (test Done code = 2657) POCT-GLUCOSE [id number] 08:07:00 Test Item Value Reference Range Interpretation Comments POC-GLUCOSE METER 116 mg/dL 70-110 H : TESTED A T [facility] 6720 (BEAKER) (test code = [facility], 153) 52873: Oliving Machine Operator/Techni estefani ID = [id number] for MELODY DOS SANTOS POCT-GLUCOSE [id number] 21:03:00 Test Item Value Reference Range Interpretation Comments POC-GLUCOSE METER 194 mg/dL 70-110 H : TESTED A T [facility] 6720 (BEAKER) (test code = [facility], [facility]) 16970: Oliving Machine Operator/Techni estefani ID = [id number] for REJI MONTOYA HEPATITIS B SURFACE [id number] 19:08:00 Test Item Value Reference Range Interpretation Comments HEPATITIS B SURFACE ANTIGEN (2) Nonreactive Nonreactive (BEAKER) (test code = 2585) Specimen is considered negative for HBsAg.POCT-GLUCOSE [id number] 17:02:00 Test Item Value Reference Range Interpretation Comments POC-GLUCOSE METER 142 mg/dL 70-110 H : TESTED A T [facility] 6720 (BEAKER) (test code = [facility], 1538) 22956: Oliving Machine Operator/Techni estefani ID = [id number] for EDSON MEJIA GLUCOSE-STAT [id number] 07:13:00 Test Item Value Reference Range Interpretation Comments GLUCOSE RANDOM (BEAKER) (test code 122 mg/dL 70-110 H = 652) HGB/HCT (H&H) - STAT [id number] 07:13:00 Test Item Value Reference Range Interpretation Comments HEMOGLOBIN (BEAKER) (test code = 10.0 GM/DL 13.0-16.8 L 410) HEMATOCRIT (BEAKER) (test code = 29.0 % 40.0-50.0 L 411) POTASSIUM-STAT [id number] 07:11:00 Test Item Value Reference Range Interpretation Comments POTASSIUM (BEAKER) (test code = 4.6 meq/L 3.6-5.5 379) POCT-GLUCOSE [id number] 06:01:00 Test Item Value Reference Range Interpretation Comments POC-GLUCOSE METER 118 mg/dL 70-110 H : TESTED A T [facility] 6720 (BEAKER) (test code [facility], = 1538) 43586: Oliving Machine Operator/Techni estefani ID = [id number] for KOURTNEY AN, LACRYSTAL SARS-COV2/RT-PCR ([facility])2020-05-28 03:28:00 Test Item Value Reference Range Interpretation Comments SARS-COV2/RT-PCR (test Negative Not Detected, Negative, code = 0619358) See external report for linked test SARS-COV-2 PERFORMING LAB [facility] (test code = 4831706) Negative result for this test determines that [...] justifying the authorization of the emergency use ofin vitro diagnostic tests for detection and/or diagnosis of COVID-19 is terminated under Section 564(b)(2) of the Act or the EUA is revoked under Section 564(g) of the Act.Testing was performed using the Giles SARS-CoV-2 assay.Fact Sheet for Healthcare Providers:https://www.MyMiniLife.giles/ari/RT_SAR L-McU-5_UQW_Fnka_Sdulh_78-095086.pdfFact Sheet for Healthcare Patients:https://www.MyMiniLife.giles/s al/UI_CFLR-WvA-5_Qxdqsnr_Ejfg_Trjvj_VB_89-587891N3.pdfPerforming Laboratory:[address] Stephens[place], [place] [address]SLC AND CREATININE [id number] 14:16:00 Test Item Value Reference Range Interpretation Comments BLOOD UREA NITROGEN 60 mg/dL 7-21 H (BEAKER) (test code = 354) CREATININE (BEAKER) 7.43 mg/dL 0.57-1.25 H (test code = 358) BUN/CREAT RATIO 8 For a normal (BEAKER) (test code individu al on a = [id number]) normal diet, t he reference inter anthony for the mass ra chuck ranges between 12:1 and 20:1 (BUN i n mg/dL/creatinin e in mg/dL) EGFR (BEAKER) (test 8 mL/min/1.73 ESTIMAT ED GFR IS code = 1092) sq m NOT ACCURATE CREATININE CLEARANCE IN PREDICTING GLOMERULAR FILTRATION RATE . ESTIMATED GFR I S NOT APPLICABLE FOR DIALYSIS PATIEN TS. Oliving Machine Operator ID - ANTONY [id number] 14:15:00 Test Item Value Reference Range Interpretation Comments SODIUM (BEAKER) (test code = 381) 136 meq/L 136-145 POTASSIUM (BEAKER) (test code = 4.0 meq/L 3.5-5.1 379) CHLORIDE (BEAKER) (test code = 382) 96 meq/L 98-107 L CO2 (BEAKER) (test code = 355) 25 meq/L 22-29 Oliving Machine Operator ID - ANTONY [id number] 14:15:00 Test Item Value Reference Range Interpretation Comments GLUCOSE RANDOM (BEAKER) (test code 164 mg/dL 70-105 H = 652) Oliving Machine Operator ID - ANTONY [id number] 14:01:00 Test Item Value Reference Range Interpretation [...] is 2.5-3.5 for patients with mechanical heart valves.[id number] 13:54:00 Test Item Value Reference Range Interpretation Comments HEMOGLOBIN (BEAKER) (test code = 10.3 GM/DL 13.7-17.5 L 410) Oliving Machine Operator ID - [id number] CULTURE + SMEAR (NON-SPUTUM)2020-04-29 [...] code = 994) seen COVID 19 INHOUSE [id number] 18:00:00 Test Item Value Reference Range Interpretation Comments COVID 19 INHOUSE AG NEGATIVE Negative Per manu facturer, (test code = negative result s should [id number]) be treated aspr esumptive and, if inconsi stent with clinical signs andsymptoms or necessary for patient man agement, should betested with an alternative mol ecular assay. Negative resultsdo not preclude SA RS-CoV-2 infection and s hould not be usedas the s ole basis for patient man agement decisions. Nega tive results should be considered in t he context of apatient's r ecent exposures, hist ory, presence of cli nicalsigns and symptoms co nsistent with COVID-19. FUNGUS CULTURE + [id number] 00:50:00 Test Item Value Reference Range Interpretation Comments CULTURE (BEAKER) (test No fungus isolated in code = 1095) 28 days FUNGUS SMEAR (BEAKER) No fungi seen (test code = 1406) BASIC METABOLIC [id number] 16:48:00 Test Item Value Reference Range Interpretation [...] = CA) 8.4 MG/DL 8.5-10.1 L SARS-COV2/RT-PCR ([facility] REF LABS)2020-03-27 14:01:00 Test Item Value Reference Range Interpretation Comments SARS-COV2/RT-PCR (test Negative Not Detected, Negative, code = 5909014) See external report for linked test SARS-COV-2 PERFORMING LAB [facility] (test code = 5014792) Negative result for this test determines that [...] justifying the authorization of the emergency use ofin vitro diagnostic tests for detection and/or diagnosis of COVID-19 is terminated under Section 564(b)(2) of the Act or the EUA is revoked under Section 564(g) of the Act.Fact Sheet for Healthcare Prov iders:https://www.[employer].KiteRead[employer]/sites/default/files/product/documents/Fact_Sheet_HC _Xrqfayqnn_Fjmk_GUMH-VmK-4.pdfFact Sheet for Healthcare Patients:https://www.[employer]/sites/default/files/product/docume nts/Dgbn_Epryq_Xlwsvfwc_Twys_KPCN-KrU-8.pdfPerforming Laboratory:[facility], [place] [address]ZNRMG CULTURE + GRAM [id number] 09:53:00 Test Item Value Reference Range Interpretation [...] No organisms seen (BEAKER) (test code = 192915) POCT-GLUCOSE [id number] 07:57:00 Test Item Value Reference Range Interpretation Comments POC-GLUCOSE METER 87 mg/dL 70-110 : TESTED A T [facility] 6720 (BEAKER) (test code = [facility], 1538) 89989: Oliving Machine Operator/Techni estefani ID = [id number] for Alix Jo HEMOGLOBIN AND [id number] 06:56:00 Test Item Value Reference Range Interpretation Comments HEMOGLOBIN (BEAKER) (test code = 8.7 GM/DL 13.7-17.5 L 410) HEMATOCRIT (BEAKER) (test code = 28.0 % 40.1-51.0 L 411) Oliving Machine Operator ID - 6000POCT-GLUCOSE [id number] 00:03:00 Test Item Value Reference Range Interpretation Comments POC-GLUCOSE METER 144 mg/dL 70-110 H : TESTED A T [facility] 6720 (BEAKER) (test code = [facility], 1538) 67330: Oliving Machine Operator/Techni estefani ID = [id number] for CRYSTAL RANGEL POCT-GLUCOSE [id number] 18:10:00 Test Item Value Reference Range Interpretation Comments POC-GLUCOSE METER 117 mg/dL 70-110 H : TESTED A T [facility] 6720 (BEAKER) (test code = [facility], 153) 93046: Oliving Machine Operator/Techni estefani ID = [id number] for Avery Levy BASIC METABOLIC [id number] 16:25:00 Test Item Value Reference Range Interpretation [...] S NOT APPLICABLE FOR DIALYSIS PATIEN TS. Oliving Machine Operator ID - ANTONY [id number] 16:08:00 Test Item Value Reference Range Interpretation Comments PHOSPHORUS (BEAKER) (test code = 4.1 mg/dL 2.3-4.7 604) Oliving Machine Operator ID - ANTONY FCBC W/PLT COUNT & AUTO [id number] 15:56:00 Test Item Value Reference Range Interpretation [...] PERCENT (BEAKER) (test code = 2801) POCT-GLUCOSE [id number] 11:29:00 Test Item Value Reference Range Interpretation Comments POC-GLUCOSE METER 102 mg/dL 70-110 : TESTED A T [facility] 6720 (BEAKER) (test code = [facility], 1538) 28437: Oliving Machine Operator/Techni estefani ID = [id number] for JAD SALGUERO POCT-GLUCOSE [id number] 09:21:00 Test Item Value Reference Range Interpretation Comments POC-GLUCOSE METER 94 mg/dL 70-110 : TESTED A T [facility] 6720 (BEAKER) (test code = [facility], 1538) 00632: Oliving Machine Operator/Techni estefani ID = [id number] for JAD MICHAEL POCT-GLUCOSE [id number] 08:43:00 Test Item Value Reference Range Interpretation Comments POC-GLUCOSE METER 68 mg/dL 70-110 L : TESTED A T [facility] 6720 (BEAKER) (test code = [facility], 1538) 14568: Oliving Machine Operator/Techni estefani ID = [id number] for JAD MICHAEL FUNGUS CULTURE + [id number] 00:31:00 Test Item Value Reference Range Interpretation Comments CULTURE (BEAKER) A 1+ Cami (test code = 1095) parapsilo sis FUNGUS SMEAR No fungi seen (BEAKER) (test code = 1406) POCT-GLUCOSE [id number] 22:45:00 Test Item Value Reference Range Interpretation Comments POC-GLUCOSE METER 100 mg/dL 70-110 : TESTED A T [facility] 6720 (BEAKER) (test code = [facility], 1538) 04049: Oliving Machine Operator/Techni estefani ID = [id number] for TEJINDER MORALES POCT-GLUCOSE [id number] 21:50:00 Test Item Value Reference Range Interpretation Comments POC-GLUCOSE METER 121 mg/dL 70-110 H : TESTED A T [facility] 6720 (BEAKER) (test code = [facility], [facility]) 09476: Oliving Machine Operator/Techni estefani ID = [id number] for Shruthi Kennedy POCT-GLUCOSE [id number] 17:35:00 Test Item Value Reference Range Interpretation Comments POC-GLUCOSE METER 117 mg/dL 70-110 H : TESTED A T [facility] 6720 (BEAKER) (test code = [facility], [facility]) 70733: Oliving Machine Operator/Techni estefani ID = [id number] for MA RTINEZ, AMADA POCT-GLUCOSE [id number] 11:29:00 Test Item Value Reference Range Interpretation Comments POC-GLUCOSE METER 92 mg/dL 70-110 : TESTED A T [facility] 6720 (BEAKER) (test code = [facility], [facility]) 75533: Oliving Machine Operator/Techni estefani ID = [id number] for CHARITY WING, AMADA POCT-GLUCOSE [id number] 07:20:00 Test Item Value Reference Range Interpretation Comments POC-GLUCOSE METER 76 mg/dL 70-110 : TESTED A T [facility] 6720 (BEAKER) (test code = [facility], [facility]) 24077: 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 Operator/Techni estefani ID = [id number] for MART IWNG, AMADA POCT-GLUCOSE [id number] 21:24:00 Test Item Value Reference Range Interpretation Comments POC-GLUCOSE METER 199 mg/dL 70-110 H : TESTED A T [facility] 6720 (BEAKER) (test code = [facility], [facility]8) 14640: Oliving Machine Operator/Techni estefani ID = [id number] for JONES SAHNI TEJINDER POCT-GLUCOSE [id number] 18:07:00 Test Item Value Reference Range Interpretation Comments POC-GLUCOSE METER 135 mg/dL 70-110 H : TESTED A T [facility] 6720 (BEAKER) (test code = [facility], [facility]) 91132: Oliving Machine Operator/Techni estefani ID = [id number] for MA RTINEZ, AMADA CBC W/PLT COUNT & AUTO [id number] 15:25:00 Test Item Value Reference Range Interpretation [...] PERCENT (BEAKER) (test code = 2801) POCT-GLUCOSE [id number] 11:52:00 Test Item Value Reference Range Interpretation Comments POC-GLUCOSE METER 91 mg/dL 70-110 : TESTED A T [facility] 6720 (BEAKER) (test code = [facility], 1538) 77800: Oliving Machine Operator/Techni estefani ID = [id number] for AMADA DUKES POCT-GLUCOSE [id number] 07:39:00 Test Item Value Reference Range Interpretation Comments POC-GLUCOSE METER 92 mg/dL 70-110 : TESTED A T [facility] 6720 (BEAKER) (test code = [facility], 1538) 81919: Oliving Machine Operator/Techni estefani ID = [id number] for AMADA DUKES BASIC METABOLIC [id number] 07:22:00 Test Item Value Reference Range Interpretation [...] S NOT APPLICABLE FOR DIALYSIS PATIEN TS. Oliving Machine Operator ID - PIAYA LPOCT-GLUCOSE [id number] 21:35:00 Test Item Value Reference Range Interpretation Comments POC-GLUCOSE METER 115 mg/dL 70-110 H : TESTED A T [facility] 6720 (BEAKER) (test code = [facility], 1538) 92933: Oliving Machine Operator/Techni estefani ID = [id number] for CRYSTAL RANGEL POCT-GLUCOSE [id number] 17:07:00 Test Item Value Reference Range Interpretation Comments POC-GLUCOSE METER 124 mg/dL 70-110 H : TESTED A T [facility] 6720 (BEAKER) (test code = [facility], 1538) 68716: Oliving Machine Operator/Techni estefani ID = [id number] for Alix Guerra POCT-GLUCOSE [id number] 12:54:00 Test Item Value Reference Range Interpretation Comments POC-GLUCOSE METER 96 mg/dL 70-110 : TESTED A T [facility] 6720 (BEAKER) (test code = [facility], 1538) 76424: Oliving Machine Operator/Techni estefani ID = [id number] for LATCOLLINS CATES POCT-GLUCOSE [id number] 08:06:00 Test Item Value Reference Range Interpretation Comments POC-GLUCOSE METER 83 mg/dL 70-110 : TESTED A T [facility] 6720 (BEAKER) (test code = [facility], 1538) 73728: Oliving Machine Operator/Techni estefani ID = [id number] for LATZaire CARNES - COLLINS BYNUM BASIC METABOLIC [id number] 07:36:00 Test Item Value Reference Range Interpretation [...] S NOT APPLICABLE FOR DIALYSIS PATIEN TS. Oliving Machine Operator ID - PIAYA LPOCT-GLUCOSE [id number] 21:38:00 Test Item Value Reference Range Interpretation Comments POC-GLUCOSE METER 130 mg/dL 70-110 H : TESTED A T [facility] 6720 (BEAKER) (test code = [facility], [facility]8) 88138: Oliving Machine Operator/Techni etsefani ID = [id number] for SA CRYSTAL HIGGINS POCT-GLUCOSE [id number] 16:28:00 Test Item Value Reference Range Interpretation Comments POC-GLUCOSE METER 127 mg/dL 70-110 H : TESTED A T [facility] 6720 (BEAKER) (test code = [facility], [facility]8) 47098: Oliving Machine Operator/Techni estefani ID = [id number] for ES QUIVEL, JAD POCT-GLUCOSE [id number] 11:41:00 Test Item Value Reference Range Interpretation Comments POC-GLUCOSE METER 143 mg/dL 70-110 H : TESTED A T [facility] 6720 (BEAKER) (test code = [facility], [facility]8) 12289: Oliving Machine Operator/Techni estefani ID = [id number] for ES QUIVEL, JAD POCT-GLUCOSE [id number] 08:03:00 Test Item Value Reference Range Interpretation Comments POC-GLUCOSE METER 86 mg/dL 70-110 : TESTED A T [facility] 6720 (BEAKER) (test code = [facility], [facility]) 54892: Oliving Machine Operator/Techni estefani ID = [id number] for ESTEBANQU IVELJAD BASIC METABOLIC [id number] 07:41:00 Test Item Value Reference Range Interpretation [...] S NOT APPLICABLE FOR DIALYSIS PATIEN TS. Oliving Machine Operator ID - JAQUELINE MCBC W/PLT COUNT & AUTO [id number] 07:15:00 Test Item Value Reference Range Interpretation [...] PERCENT (BEAKER) (test code = 2801) POCT-GLUCOSE [id number] 21:13:00 Test Item Value Reference Range Interpretation Comments POC-GLUCOSE METER 146 mg/dL 70-110 H : TESTED A T [facility] 6720 (BEAKER) (test code = [facility], 153) 73028: Oliving Machine Operator/Techni estefani ID = [id number] for SA CRYSTAL HIGGINS POCT-GLUCOSE [id number] 17:37:00 Test Item Value Reference Range Interpretation Comments POC-GLUCOSE METER 140 mg/dL 70-110 H : TESTED A T [facility] 6720 (BEAKER) (test code = [facility], 1538) 59689: Oliving Machine Operator/Techni estefani ID = [id number] for ES QUISHAN JAD POCT-GLUCOSE [id number] 13:12:00 Test Item Value Reference Range Interpretation Comments POC-GLUCOSE METER 78 mg/dL 70-110 : TESTED A T [facility] 6720 (BEAKER) (test code = [facility], 1538) 51847: Oliving Machine Operator/Techni estefani ID = [id number] for ESQU IVEL, JAD POCT-GLUCOSE [id number] 07:32:00 Test Item Value Reference Range Interpretation Comments POC-GLUCOSE METER 77 mg/dL 70-110 : TESTED A T [facility] 6720 (BEAKER) (test code = [facility], 153) 78578: Oliving Machine Operator/Techni estefani ID = [id number] for ESQU IVEL, JAD BASIC METABOLIC [id number] 07:14:00 Test Item Value Reference Range Interpretation [...] S NOT APPLICABLE FOR DIALYSIS PATIEN TS. Oliving Machine Operator ID - [id number] 07:04:00 Test Item Value Reference Range Interpretation Comments PHOSPHORUS (BEAKER) (test code = 5.2 mg/dL 2.3-4.7 H 604) Oliving Machine Operator ID - ADMINPOCT-GLUCOSE [id number] 21:39:00 Test Item Value Reference Range Interpretation Comments POC-GLUCOSE METER 148 mg/dL 70-110 H : TESTED A T [facility] 6720 (BEAKER) (test code = [facility], 153) 61525: Oliving Machine Operator/Techni estefani ID = [id number] for ARELIS MORALESIA POCT-GLUCOSE [id number] 17:38:00 Test Item Value Reference Range Interpretation Comments POC-GLUCOSE METER 114 mg/dL 70-110 H : TESTED A T [facility] 6720 (BEAKER) (test code = [facility], 153) 14395: Oliving Machine Operator/Techni estefani ID = [id number] for CLAUDIA GALAVIZ, AMADA POCT-GLUCOSE [id number] 16:11:00 Test Item Value Reference Range Interpretation Comments POC-GLUCOSE METER 93 mg/dL 70-110 : TESTED A T [facility] 6720 (BEAKER) (test code = [facility], 153) 98729: Oliving Machine Operator/Techni estefani ID = [id number] for MART WING, AMADA POCT-GLUCOSE [id number] 14:27:00 Test Item Value Reference Range Interpretation Comments POC-GLUCOSE METER 98 mg/dL 70-110 : [facility] (test code = [facility], 1538) 76468: Oliving Machine Operator/Techni estefani ID = [id number] for DAVID JIMÉNEZ POCT-GLUCOSE [id number] 07:48:00 Test Item Value Reference Range Interpretation Comments POC-GLUCOSE METER 101 mg/dL 70-110 : TESTED A T [facility] 6720 (BEAKER) (test code = [facility], 1538) 10083: Oliving Machine Operator/Techni estefani ID = [id number] for AYLA KELLOGG POCT-GLUCOSE [id number] 07:24:00 Test Item Value Reference Range Interpretation Comments POC-GLUCOSE METER 101 mg/dL 70-110 : TESTED A T [facility] 6720 (BEAKER) (test code = [facility], 1538) 03654: Oliving Machine Operator/Techni estefani ID = [id number] for AMADA MEDRANO SARS-COV2/RT-PCR ([facility])2020-03-20 07:17:00 Test Item Value Reference Range Interpretation Comments SARS-COV2/RT-PCR (test Negative Not Detected, Negative, code = 0385768) See external report for linked test SARS-COV-2 PERFORMING LAB [facility] (test code = 3368669) Negative result for this test determines that [...] justifying the authorization of the emergency use ofin vitro diagnostic tests for detection and/or diagnosis of COVID-19 is terminated under Section 564(b)(2) of the Act or the EUA is revoked under Section 564(g) of the Act.Testing was performed using the Giles SARS-CoV-2 assay.Fact Sheet for Healthcare Providers:https://www.[employer].giles/ari/RT_SAR H-PfJ-5_OOF_Cvbt_Hfxmh_84-044894.pdfFact Sheet for Healthcare Patients:https://www.[employer]/s al/LI_UQAM-RuM-2_Vpzgtrn_Seeb_Sendx_ZN_54-952722N0.pdfPerforming Laboratory:[address] [place] [address] POCT-GLUCOSE [id number] 21:54:00 Test Item Value Reference Range Interpretation Comments POC-GLUCOSE METER 155 mg/dL 70-110 H : TESTED A T [facility] 6720 (BEAKER) (test code = [facility], 1538) 64967: Oliving Machine Operator/Techni estefani ID = [id number] for TEJINDER MORALES ANAEROBIC [id number] 19:28:00 Test Item Value Reference Range Interpretation Comments CULTURE (BEAKER) (test No anaerobes isolated code = 1095) ANAEROBIC [id number] 19:23:00 Test Item Value Reference Range Interpretation Comments CULTURE (BEAKER) (test No anaerobes isolated code = 1095) POCT-GLUCOSE [id number] 17:26:00 Test Item Value Reference Range Interpretation Comments POC-GLUCOSE METER 128 mg/dL 70-110 H : TESTED A T [facility] 6720 (BEAKER) (test code = [facility], 1538) 30857: Oliving Machine Operator/Techni estefani ID = [id number] for AMADA MEDRANO POCT-GLUCOSE [id number] 12:04:00 Test Item Value Reference Range Interpretation Comments POC-GLUCOSE METER 93 mg/dL 70-110 : TESTED A T [facility] 6720 (BEAKER) (test code = [facility], 1538) 53455: Oliving Machine Operator/Techni estefani ID = [id number] for AMADA DKUES BASIC METABOLIC [id number] 09:28:00 Test Item Value Reference Range Interpretation [...] S NOT APPLICABLE FOR DIALYSIS PATIEN TS. Oliving Machine Operator ID - PIAYA LPOCT-GLUCOSE [id number] 21:30:00 Test Item Value Reference Range Interpretation Comments POC-GLUCOSE METER 133 mg/dL 70-110 H : TESTED A T [facility] 6720 (BEAKER) (test code = [facility], 1538) 30063: Oliving Machine Operator/Techni estefani ID = [id number] for CRYSTAL RANGEL POCT-GLUCOSE [id number] 19:29:00 Test Item Value Reference Range Interpretation Comments POC-GLUCOSE METER 191 mg/dL 70-110 H : TESTED A T [facility] 6720 (BEAKER) (test code = [facility], 1538) 31363: Oliving Machine Operator/Techni estefani ID = [id number] for MARIFER WEEKS POCT-GLUCOSE [id number] 11:31:00 Test Item Value Reference Range Interpretation Comments POC-GLUCOSE METER 119 mg/dL 70-110 H : TESTED A T [facility] 6720 (BEAKER) (test code = [facility], 1538) 15918: Oliving Machine Operator/Techni estefani ID = [id number] for JAD SALGUERO POCT-GLUCOSE [id number] 07:32:00 Test Item Value Reference Range Interpretation Comments POC-GLUCOSE METER 115 mg/dL 70-110 H : TESTED A T [facility] 6720 (BEAKER) (test code = [facility], 1538) 17797: Oliving Machine Operator/Techni estefani ID = [id number] for JAD SALGUERO BASIC METABOLIC [id number] 06:39:00 Test Item Value Reference Range Interpretation [...] S NOT APPLICABLE FOR DIALYSIS PATIEN TS. Oliving Machine Operator ID - PIAYA LCBC W/PLT COUNT & AUTO [id number] 06:01:00 Test Item Value Reference Range Interpretation [...] PERCENT (BEAKER) (test code = 2801) POCT-GLUCOSE [id number] 21:16:00 Test Item Value Reference Range Interpretation Comments POC-GLUCOSE METER 145 mg/dL 70-110 H : TESTED A T [facility] 6720 (NOE) (test code = [facility], 1538) 23845: Oliving Machine Operator/Techni estefani ID = [id number] for CRYSTAL RANGEL TISSUE [id number] 19:02:00Surgical Pathology Report Case: [id number] Authorizing Provider: Star Cloud DPM Collected: 03/13/2020 12:32 PM Ordering Location: [facility] Received: 03/13/2020 02:59 PM PERIOPERATIVE SERVICES Pathologist: Vandana Beverly MD Specimen: Metatarsal, Right, base of the first metatarsal bone RIGHT FOOT, BASE OF 1ST METATARSAL, NON- HEALING WOUND, DEBRIDEMENT: - GANGRENOUS NECROSIS INVOLVING SKIN AND SUBCUTANEOUS TISSUE - ACUTE OSTEOMYELITIS, SEVERE Signing Pathologist Direct Phone Line: [phone] signed by Vandana Beverly MD on 03/17/2020 at 7:02 [id number]; [id number]-tsdxyap surgical wound, sequela Metatarsal, rightReceived in formalin [...] reveals a gardner-yellow, firm, trabeculated cut surface. Bath Steward/Stewardess sections are submitted as follows:Section codeA1-skin and soft cjoqmdW2-B4-rbik following decalcificationPilar LEW Caraballo HT (ASCP)PERFORMEDThe interpretation of this case included the use of immunohistochemistry or special stains.Control Slides Examined: In-house known positive controls were evaluated along with the test tissue. These control slides run alongside ofthe patients sample show appropriate staining. Internal positive and negative controls when available are evaluated Immunohistochemistry technical testing was performed at [facility] Laboratory where it was developed and its performance characteristics were determined.It has not been cleared or approved by the U.S. Food and Drug Administration. The FDA has determinedthat such clearance or approval is not necessary. The test is used for clinical purposes. It should not be regarded as investigational or for research. This laboratory is certified under the Clinical Laboratory Improvement Amendments of 1988 (CLIA-88) as qualified to perform high complexity clinical laboratory testing.POCT-GLUCOSE [id number] 17:26:00 Test Item Value Reference Range Interpretation Comments POC-GLUCOSE METER 145 mg/dL 70-110 H : TESTED A T [facility] 6720 (BEAKER) (test code = [facility], 1538) 59178: Oliving Machine Operator/Techni estefani ID = [id number] for Sabine Vazquez POCT-GLUCOSE [id number] 07:31:00 Test Item Value Reference Range Interpretation Comments POC-GLUCOSE METER 94 mg/dL 70-110 : TESTED A T [facility] 6720 (BEAKER) (test code = [facility], 1538) 68754: Oliving Machine Operator/Techni estefani ID = [id number] for JAD MICHAEL CBC W/PLT COUNT & AUTO [id number] 06:23:00 Test Item Value Reference Range Interpretation [...] PERCENT (BEAKER) (test code = 2801) POCT-GLUCOSE [id number] 06:14:00 Test Item Value Reference Range Interpretation Comments POC-GLUCOSE METER 97 mg/dL 70-110 : TESTED A T [facility] 6720 (BEAKER) (test code = [facility], 1538) 58825: Oliving Machine Operator/Techni estefani ID = [id number] for TEJINDER KITCHEN BASIC METABOLIC [id number] 06:14:00 Test Item Value Reference Range Interpretation [...] S NOT APPLICABLE FOR DIALYSIS PATIEN TS. Oliving Machine Operator ID - EDASIBLOOD [id number] 00:01:00 Test Item Value Reference Range Interpretation Comments CULTURE (BEAKER) (test No growth in 5 days code = 1095) BLOOD [id number] 00:01:00 Test Item Value Reference Range Interpretation Comments CULTURE (BEAKER) (test No growth in 5 days code = 1095) POCT-GLUCOSE [id number] 21:35:00 Test Item Value Reference Range Interpretation Comments POC-GLUCOSE METER 169 mg/dL 70-110 H : TESTED A T [facility] 6720 (BEAKER) (test code = [facility], 1538) 35955: Oliving Machine Operator/Techni estefani ID = [id number] for TEJINDER MORALES POCT-GLUCOSE [id number] 17:54:00 Test Item Value Reference Range Interpretation Comments POC-GLUCOSE METER 133 mg/dL 70-110 H : TESTED A T [facility] 6720 (BEAKER) (test code = [facility], 1538) 10262: Oliving Machine Operator/Techni estefani ID = [id number] for EMELI SKELTONIA POCT-GLUCOSE [id number] 12:50:00 Test Item Value Reference Range Interpretation Comments POC-GLUCOSE METER 110 mg/dL 70-110 : TESTED A T [facility] 6720 (BEAKER) (test code = [facility], 1538) 13223: Oliving Machine Operator/Techni estefani ID = [id number] for BRANDI WHITE, JAQUI SURGICALLY OBTAINED CULTURE + GRAM [id number] 09:39:00 Test Item Value Reference Range Interpretation [...] organisms seen RESULT (BEAKER) (test code = 991135) SURGICALLY OBTAINED CULTURE + GRAM [id number] 09:39:00 Test Item Value Reference Range Interpretation [...] RESULT (BEAKER) negative rods (test code = 126985) POCT-GLUCOSE [id number] 08:12:00 Test Item Value Reference Range Interpretation Comments POC-GLUCOSE METER 88 mg/dL 70-110 : TESTED A T [facility] 6720 (BEAKER) (test code = [facility], 1538) 56104: Oliving Machine Operator/Techni estefani ID = [id number] for GAUTAM RUIZ (V), EFRAIN POCT-GLUCOSE [id number] 07:19:00 Test Item Value Reference Range Interpretation Comments POC-GLUCOSE METER 97 mg/dL 70-110 : TESTED A T [facility] 6720 (BEAKER) (test code = [facility], 1538) 57239: Oliving Machine Operator/Techni estefani ID = [id number] for SHARON NATE LEY BASIC METABOLIC [id number] 07:19:00 Test Item Value Reference Range Interpretation [...] S NOT APPLICABLE FOR DIALYSIS PATIEN TS. Oliving Machine Operator ID - [id number] 07:08:00 Test Item Value Reference Range Interpretation Comments MAGNESIUM (BEAKER) (test code = 2.1 mg/dL 1.6-2.6 627) Oliving Machine Operator ID - EDASICBC W/PLT COUNT & AUTO [id number] 06:30:00 Test Item Value Reference Range Interpretation [...] PERCENT (BEAKER) (test code = 2801) POCT-GLUCOSE [id number] 20:33:00 Test Item Value Reference Range Interpretation Comments POC-GLUCOSE METER 129 mg/dL 70-110 H : TESTED A T [facility] ([facility]) (test code = [facility], [facility]) [address]: Oliving Machine Operator/Techni estefani ID = [id number] for ES QUIVEL, JAD POCT-GLUCOSE [id number] 17:20:00 Test Item Value Reference Range Interpretation Comments POC-GLUCOSE METER 108 mg/dL 70-110 : TESTED A T [facility] 6720 (BEAKER) (test code = [facility], [facility]8) 327[address]: Oliving Machine Operator/Techni estefani ID = [id number] for KO LLEADE, RITCHEL POCT-GLUCOSE [id number] 11:17:00 Test Item Value Reference Range Interpretation Comments POC-GLUCOSE METER 115 mg/dL 70-110 H : TESTED A T [facility] 6720 (BEAKER) (test code = [facility], 1538) 62575: Oliving Machine Operator/Techni estefani ID = [id number] for OK BERTHA, ANYA POCT-GLUCOSE [id number] 08:18:00 Test Item Value Reference Range Interpretation Comments POC-GLUCOSE METER 87 mg/dL 70-110 : TESTED A T [facility] 6720 ([facility]) (test code = [facility], [facility]8) 61206: Oliving Machine Operator/Techni estefani ID = [id number] for SANTOS ALANIZ [id number] 07:32:00 Test Item Value Reference Range Interpretation Comments MAGNESIUM (BEAKER) (test code = 2.0 mg/dL 1.6-2.6 627) Oliving Machine Operator ID - EDASIBASIC METABOLIC [id number] 07:32:00 Test Item Value Reference Range Interpretation [...] S NOT APPLICABLE FOR DIALYSIS PATIEN TS. Oliving Machine Operator ID - EDASICBC W/PLT COUNT & AUTO [id number] 07:08:00 Test Item Value Reference Range Interpretation [...] PERCENT (BEAKER) (test code = 2801) POCT-GLUCOSE [id number] 22:22:00 Test Item Value Reference Range Interpretation Comments POC-GLUCOSE METER 180 mg/dL 70-110 H : TESTED A T [facility] 6720 (BEAKER) (test code = [place], 1538) 52551: Oliving Machine Operator/Techni estefani ID = [id number] for CRYSTAL RANGEL HEPATITIS B SURFACE [id number] 17:23:00 Test Item Value Reference Range Interpretation Comments HEPATITIS B SURFACE ANTIGEN (2) Nonreactive Nonreactive (BEAKER) (test code = 2585) Specimen is considered negative for HBsAg.SPIN/CONCENTRATION [id number] 14:24:00 Test Item Value Reference Range Interpretation Comments CONCENTRATION CHARGED (BEAKER) (test Done code = 2657) SPIN/CONCENTRATION [id number] 14:23:00 Test Item Value Reference Range Interpretation Comments CONCENTRATION CHARGED (BEAKER) (test Done code = 2657) POCT-GLUCOSE [id number] 12:00:00 Test Item Value Reference Range Interpretation Comments POC-GLUCOSE METER 84 mg/dL 70-110 : TESTED A T [facility] 6720 (BEAKER) (test code = [facility], 1538) 25793: Oliving Machine Operator/Techni estefani ID = [id number] for AMADA DUKES BASIC METABOLIC [id number] 09:03:00 Test Item Value Reference Range Interpretation [...] S NOT APPLICABLE FOR DIALYSIS PATIEN TS. Oliving Machine Operator ID - DANITZA [id number] 08:43:00 Test Item Value Reference Range Interpretation Comments MAGNESIUM (BEAKER) (test code = 2.4 mg/dL 1.6-2.6 627) Oliving Machine Operator ID - DANITZA LPOCT-GLUCOSE [id number] 07:47:00 Test Item Value Reference Range Interpretation Comments POC-GLUCOSE METER 99 mg/dL 70-110 : TESTED A T [facility] 6720 (BEAKER) (test code = [facility], 1538) 13677: Oliving Machine Operator/Techni estefani ID = [id number] for AMADA DUKES POCT-GLUCOSE [id number] 22:12:00 Test Item Value Reference Range Interpretation Comments POC-GLUCOSE METER 139 mg/dL 70-110 H : TESTED A T [facility] 6720 (BEAKER) (test code = [facility], 1538) 55513: Oliving Machine Operator/Techni estefani ID = [id number] for TEJINDER MORALES POCT-GLUCOSE [id number] 17:34:00 Test Item Value Reference Range Interpretation Comments POC-GLUCOSE METER 157 mg/dL 70-110 H : TESTED A T [facility] 6720 (BEAKER) (test code = [facility], 1538) 22969: Oliving Machine Operator/Techni estefani ID = [id number] for PRASANNA GALINDO (V), EFRAIN POCT-GLUCOSE [id number] 14:08:00 Test Item Value Reference Range Interpretation Comments POC-GLUCOSE METER 94 mg/dL 70-110 : TESTED A T [facility] 6720 (BEAKER) (test code = [facility], 1538) 21254: Oliving Machine Operator/Techni estefani ID = [id number] for MARTIN SHARMA HGB/HCT (H&H) - STAT [id number] 10:02:00 Test Item Value Reference Range Interpretation Comments HEMOGLOBIN (BEAKER) (test code = 8.5 GM/DL 13.0-16.8 L 410) HEMATOCRIT (BEAKER) (test code = 25.0 % 40.0-50.0 L 411) POTASSIUM-STAT [id number] 09:56:00 Test Item Value Reference Range Interpretation Comments POTASSIUM (BEAKER) (test code = 3.6 meq/L 3.6-5.5 379) POCT-GLUCOSE [id number] 07:53:00 Test Item Value Reference Range Interpretation Comments POC-GLUCOSE METER 97 mg/dL 70-110 : TESTED A T [facility] 6720 (BEAKER) (test code = [facility], 1538) 39868: Oliving Machine Operator/Techni estefani ID = [id number] for COLLINS SIFUENTES POCT-GLUCOSE [id number] 22:01:00 Test Item Value Reference Range Interpretation Comments POC-GLUCOSE METER 173 mg/dL 70-110 H : TESTED A T [facility] 6720 (BEAKER) (test code = DASIA Garcia [facility], 1538) 36658: Oliving Machine Operator/Techni estefani ID = [id number] for JAD SALGUERO POCT-GLUCOSE [id number] 18:20:00 Test Item Value Reference Range Interpretation Comments POC-GLUCOSE METER 161 mg/dL 70-110 H : TESTED A T [facility] 6720 (BEAKER) (test code [facility], = 1538) 84920: Oliving Machine Operator/Techni estefani ID = [id number] for COLLINS SIFUENTES POCT-GLUCOSE [id number] 12:22:00 Test Item Value Reference Range Interpretation Comments POC-GLUCOSE METER 94 mg/dL 70-110 : TESTED A T [facility] 6720 (NOE) (test code = DASIA Garcia [facility], 1538) 27215: Oliving Machine Operator/Techni estefani ID = [id number] for COLLINS SIFUENTES SARS-COV2/RT-PCR ([facility])2020-03-12 12:11:00 Test Item Value Reference Range Interpretation Comments SARS-COV2/RT-PCR (test code Negative Not Detected, Negative, = 4452188) See external report for linked test SARS-COV-2 PERFORMING LAB [facility] (test code = 7436274) Negative results do not preclude SARS-CoV-2 infection [...] of the Act.Fact Sheet for Healthcare Pro viders:https://www.[employer]/Documents/Xpert%20Xpress%20SARS%20CoV-2/Fact%20Sh eets/302-3802%13MXSY-AOG-3%20HEALTHCARE%20PROVIDERS%20FACT%20SHEET.pdfFact Sheet for Healthcare Patients:https://www.[employer]/Documents/Xpert%20Xpress%20SARS%20CoV-2/Fact%20Sheets/302-3801%20SARS-COV -2%20PATIENT%20FACT%20SHEET.pdfPerforming Laboratory:[facility], [place] [address]TMNI-PRHMVZC [id number] 08:44:00 Test Item Value Reference Range Interpretation Comments POC-GLUCOSE METER 92 mg/dL 70-110 : TESTED A T [facility] 6720 (BEAKER) (test code = D[facility] Garcia [facility], 1538) 14563: Oliving Machine Operator/Techni estefani ID = [id number] for FOZIA CORDELIAFELIPA Benjie BYNUMCOLLINS HEMOGLOBIN [id number] 08:17:00 Test Item Value Reference Range Interpretation Comments HEMOGLOBIN A1C (BEAKER) (test code = 5.6 % 4.3-6.1 368) HEPATIC FUNCTION [id number] 06:07:00 Test Item Value Reference Range Interpretation [...] code = < U/L 6-55 L 347) Oliving Machine Operator ID - ADMINC-REACTIVE [id number] 06:06:00 Test Item Value Reference Range Interpretation Comments C-REACTIVE PROTEIN (BEAKER) (test 3.99 mg/dL 0.00-0.50 H code = 676) Oliving Machine Operator ID - ADMINBASIC METABOLIC [id number] 06:06:00 Test Item Value Reference Range Interpretation [...] S NOT APPLICABLE FOR DIALYSIS PATIEN TS. Oliving Machine Operator ID - ADMINPROTHROMBIN [id number] 04:50:00 Test Item Value Reference Range Interpretation [...] is 2.5-3.5 for patients wiht mechanical heart valves.COMPREHENSIVE METABOLIC [...] S NOT APPLICABLE FOR DIALYSIS PATIEN TS. Oliving Machine Operator SAVANNA - DANITZA Bergerontor SAVANNA - DANITZA LCBC W/PLT COUNT & AUTO [id number] 23:42:00 Test Item Value Reference Range Interpretation [...] PERCENT (BEAKER) (test code = 2801) PROTHROMBIN [id number] 23:21:00 Test Item Value Reference Range Interpretation Comments PROTIME (BEAKER) (test code = 14.3 seconds 11.9-14.2 H 759) INR (NOE) (test code = 370) 1.15 <=5.90 Effective 08/02/2018: PT Reference Range ChangeNew: 11.9-14.2 Previous: 11.7- 14.7RECOMMENDED COUMADIN/WARFARIN INR THERAPY RANGESSTANDARD DOSE: 2.0-3.0 Includes: PROPHYLAXIS for venous thrombosis, systemic embolization; TREATMENT for venous thrombosis and/or pulmonary embolus.HIGH RISK: Target INR is 2.5-3.5 for patients wiht mechanical heart valves.POCT-GLUCOSE [id number] 22:00:00 Test Item Value Reference Range Interpretation Comments POC-GLUCOSE METER 203 mg/dL 70-110 H : TESTED A T [facility] 6720 (NOE) (test code = [facility] [place], 1538) 56398: Oliving Machine Operator/Techni estefani ID = [id number] for wikifolio ROJELIO PORTILLO CBC W/AUTO [id number] 19:57:00 Test Item Value Reference Range Interpretation [...] (test code NO = MDIFF) COMPREHENSIVE METABOLIC [id number] 09:31:00 Test Item Value Reference Range Interpretation [...] MDRD formula.Chronic kidney disease is defined as eith er kidney damageor GFR <60 mL/min/1.73 m2 [...] ALKP) to change in reagent. COMPREHENSIVE METABOLIC [id number] 09:24:00 Test Item Value Reference Range Interpretation [...] IUnit/L 45-117 code = ALKP) CBC W/AUTO [id number] 08:56:00 Test Item Value Reference Range Interpretation [...] is no long er being reported. HGB [id number] 21:19:00 Test Item Value Reference Range Interpretation Comments HEMOGLOBIN (test code 7.0 gram/dL 13.0-17.5 L = HGB) HEMATOCRIT (test code 21.8 % 42.0-52.0 LL Resul ts called to = HCT) NICHO BuitragoLAB. 2118Critical re sults verified and re ad back by Nurse? Y HGB [id number] 20:40:00 Test Item Value Reference Range Interpretation Comments HEMOGLOBIN (test code = HGB) 6.9 gram/dL 13.0-17.5 L HEMATOCRIT (test code = HCT) 22.1 % 42.0-52.0 L FUNGUS CULTURE + [id number] 16:32:00 Test Item Value Reference Range Interpretation Comments CULTURE (BEAKER) (test No fungus isolated in code = 1095) 28 days FUNGUS SMEAR (BEAKER) No fungal elements seen (test code = 1406) FUNGUS CULTURE + [id number] 16:32:00 Test Item Value Reference Range Interpretation [...] bacilli (test code = 994) seen POCT-GLUCOSE [id number] 12:16:00 Test Item Value Reference Range Interpretation Comments POC-GLUCOSE METER 104 mg/dL 70-110 : [facility] ([facility]ER[facility] (test code = [facility], 1538) 16212: Oliving Machine Operator/Techni estefani ID = [id number] for DA SGUPTA, JAYITA POCT-GLUCOSE [id number] 07:26:00 Test Item Value Reference Range Interpretation Comments POC-GLUCOSE METER 89 mg/dL 70-110 : [facility] (BEAKER) (test code = [facility], 1538) 35443: Oliving Machine Operator/Techni estefani ID = [id number] for DASG UPTA, JAYITA SARS-COV2/RT-PCR ([facility])2020-01-22 07:13:00 Test Item Value Reference Range Interpretation Comments SARS-COV2/RT-PCR (test Negative Not Detected, Negative, code = 7936252) See external report for linked test SARS-COV-2 PERFORMING LAB [facility] (test code = 6778293) Negative result for this test determines that [...] justifying the authorization of the emergency use ofin vitro diagnostic tests for detection and/or diagnosis of COVID-19 is terminated under Section 564(b)(2) of the Act or the EUA is revoked under Section 564(g) of the Act.Testing was performed using the Giles SARS-CoV-2 assay.Fact Sheet for Healthcare Providers:https://www.MyMiniLife.giles/ari/RT_SAR C-OoF-5_QVG_Crrq_Yjfgx_53-600805.pdfFact Sheet for Healthcare Patients:https://www.molecular.giles/s al/AO_OVZQ-ZsS-3_Rogjzdb_Jggg_Szihk_UO_08-551055A2.pdfPerforming Laboratory:[facility] [place], [place] [address]r[place]ie [place] [address] BASIC METABOLIC [id number] 06:27:00 Test Item Value Reference Range Interpretation [...] S NOT APPLICABLE FOR DIALYSIS PATIEN TS. Oliving Machine Operator ID - EDASIPOCT-GLUCOSE [id number] 21:15:00 Test Item Value Reference Range Interpretation Comments POC-GLUCOSE METER 123 mg/dL 70-110 H : TESTED A T [facility] 6720 (BEAKER) (test code [facility], = 1538) 00638: Oliving Machine Operator/Techni estefani ID = [id number] for BRADEN SWARTZ HEPATITIS B SURFACE [id number] 18:16:00 Test Item Value Reference Range Interpretation Comments HEPATITIS B SURFACE ANTIGEN (2) Nonreactive Nonreactive (BEAKER) (test code = 2585) Specimen is considered negative for HBsAg.POCT-GLUCOSE [id number] 16:50:00 Test Item Value Reference Range Interpretation Comments POC-GLUCOSE METER 110 mg/dL 70-110 : TESTED A T [facility] 6720 (BEAKER) (test code = [facility], 1538) 29692: Oliving Machine Operator/Techni estefani ID = [id number] for MONISHA SCHAEFER POCT-GLUCOSE [id number] 07:55:00 Test Item Value Reference Range Interpretation Comments POC-GLUCOSE METER 75 mg/dL 70-110 : TESTED A T [facility] 6720 (BEAKER) (test code = [facility], 1538) 27632: Oliving Machine Operator/Techni estefani ID = [id number] for MONISHA BLANCHARD BASIC METABOLIC [id number] 05:59:00 Test Item Value Reference Range Interpretation Comments SODIUM (BEAKER) 135 meq/L 136-145 L (test code = 381) POTASSIUM (BEAKER) 4.5 meq/L 3.5-5.1 (test code = 379) CHLORIDE (BEAKER) 97 meq/L 98-107 L (test code = 382) CO2 (BEAKER) (test 24 meq/L 22-29 code = 355) BLOOD UREA NITROGEN 41 mg/dL 7-21 H ([facility]) (test code = 354) CREATININE (BEAKER) 9.09 mg/dL 0.57-1.25 H (test code = 358) GLUCOSE RANDOM 86 mg/dL 70-105 ([facility]) (test code = 652) CALCIUM (AKER) 8.2 mg/dL 8.4-10.2 L (test code = 697) EGFR ([facility]) (test 6 mL/min/1.73 ESTIMAT ED GFR IS code = 1092) sq m NOT ACCURATE CREATININE CLEARANCE IN PREDICTING GLOMERULAR FILTRATION RATE . ESTIMATED GFR I S NOT APPLICABLE FOR DIALYSIS PATIEN TS. Oliving Machine Operator ID - EDASIPOCT-GLUCOSE [id number] 19:48:00 Test Item Value Reference Range Interpretation Comments POC-GLUCOSE METER 133 mg/dL 70-110 H : [facility] ([facility]) (test code = [facility], 153) 72998: Oliving Machine Operator/Techni estefani ID = [id number] for MO PRINCE (V), CHRIS POCT-GLUCOSE [id number] 16:50:00 Test Item Value Reference Range Interpretation Comments POC-GLUCOSE METER 106 mg/dL 70-110 : [facility] ([facility]) (test code = [facility], 153) 37297: Oliving Machine Operator/Techni estefani ID = [id number] for HIGGINS NNY, SHABNAM POCT-GLUCOSE [id number] 11:54:00 Test Item Value Reference Range Interpretation Comments POC-GLUCOSE METER 104 mg/dL 70-110 : [facility] ([facility]) (test code = [facility], 1538) 27846: Oliving Machine Operator/Techni estefani ID = [id number] for HIGGINS NNY, SHABNAM POCT-GLUCOSE [id number] 07:53:00 Test Item Value Reference Range Interpretation Comments POC-GLUCOSE METER 88 mg/dL 70-110 : PrevTst on Ambulance: ([facility]) (test code = TESTED AT [place] [address] 1538) [facility], [address]: Oliving Machine Operator/Techni estefani ID = [id number] for SUNN Y, SHABNAM BASIC METABOLIC [id number] 04:56:00 Test Item Value Reference Range Interpretation [...] S NOT APPLICABLE FOR DIALYSIS PATIEN TS. Oliving Machine Operator ID - EDASICBC W/PLT COUNT & AUTO [id number] 04:15:00 Test Item Value Reference Range Interpretation [...] % 0-1 PERCENT (BEAKER) (test code = 5871) POCT-GLUCOSE [id number] 20:55:00 Test Item Value Reference Range Interpretation Comments POC-GLUCOSE METER 128 mg/dL 70-110 H : TESTED A T [facility] 6720 (AKER) (test code = DASIA Garcia [facility], 153) 89153: Oliving Machine Operator/Techni estefani ID = [id number] for FE RNANDO (V), KARI POCT-GLUCOSE [id number] 17:32:00 Test Item Value Reference Range Interpretation Comments POC-GLUCOSE METER 116 mg/dL 70-110 H : TESTED A T [facility] 6720 (BEAKER) (test [facility], [address]: code = 1538) Oliving Machine Operator/Techni estefani ID = [id number] for SINDI SANCHEZ IN HEPATITIS B SURFACE [id number] 07:59:00 Test Item Value Reference Range Interpretation Comments HEPATITIS B SURFACE ANTIBODY < mIU/mL <8.0 (BEAKER) (test code = 647) Oliving Machine Operator ID - ADMINBASIC METABOLIC [id number] 06:46:00 Test Item Value Reference Range Interpretation [...] S NOT APPLICABLE FOR DIALYSIS PATIEN TS. Oliving Machine Operator ID - ADMINCBC W/PLT COUNT & AUTO [id number] 05:21:00 Test Item Value Reference Range Interpretation [...] code = 2801) HEPATITIS B CORE ANTIBODY, [id number] 03:01:00 Test Item Value Reference Range Interpretation Comments HEPATITIS B CORE TOTAL ANTIBODY Nonreactive Nonreactive (AKER) (test code = 497) Oliving Machine Operator ID - ADMINPOCT-GLUCOSE [id number] 22:59:00 Test Item Value Reference Range Interpretation Comments POC-GLUCOSE METER 110 mg/dL 70-110 : TESTED A T [facility] 67 ([facility]) ([facility], 1538) [address]32: Oliving Machine Operator/Techni estefani ID = [id number] for Avery Levy POCT-GLUCOSE [id number] 12:01:00 Test Item Value Reference Range Interpretation Comments POC-GLUCOSE METER 107 mg/dL 70-110 : Notified RN/MD: ([facility]) (test code = TESTED AT [facility] 6720 1538) [place], [address]: Oliving Machine Operator/Techni estefani ID = [id number] for HADLEY MELISSA POCT-GLUCOSE [id number] 07:44:00 Test Item Value Reference Range Interpretation Comments POC-GLUCOSE METER 95 mg/dL 70-110 : Notified RN/MD: TESTED (BEAKER) (test code = AT [facility] [address] 7126) [place], [address]: Oliving Machine Operator/Techni estefani ID = [id number] for HADLEY ARGUELLO BASIC METABOLIC [id number] 07:25:00 Test Item Value Reference Range Interpretation [...] S NOT APPLICABLE FOR DIALYSIS PATIEN TS. Oliving Machine Operator ID - TIAGO CCBC W/PLT COUNT & AUTO [id number] 04:39:00 Test Item Value Reference Range Interpretation [...] PERCENT (BEAKER) (test code = 2801) POCT-GLUCOSE [id number] 22:19:00 Test Item Value Reference Range Interpretation Comments POC-GLUCOSE METER 115 mg/dL 70-110 H : TESTED Vikas Tai [facility] 6720 (BEAKER) (test code = [place], 1538) [address]67: Oliving Machine Operator/Techni estefani ID = [id number] for Lindsay Montoya POCT-GLUCOSE [id number] 16:56:00 Test Item Value Reference Range Interpretation Comments POC-GLUCOSE METER 106 mg/dL 70-110 : TESTED A T [facility] 6720 (BEAKER) (test code = [facility], 1538) 38606: Oliving Machine Operator/Techni estefani ID = [id number] for ANNMARIE PENNINGTON POCT-GLUCOSE [id number] 12:23:00 Test Item Value Reference Range Interpretation Comments POC-GLUCOSE METER 130 mg/dL 70-110 H : TESTED A T [facility] 6720 (BEAKER) (test code = [facility], 1538) 52574: Oliving Machine Operator/Techni estefani ID = [id number] for ANNMARIE PENNINGTON POCT-GLUCOSE [id number] 09:12:00 Test Item Value Reference Range Interpretation Comments POC-GLUCOSE METER 96 mg/dL 70-110 : TESTED A T [facility] 6720 (BEAKER) (test code = [facility], 1538) 80344: Oliving Machine Operator/Techni estefani ID = [id number] for STEVE DRISCOLL BASIC METABOLIC [id number] 06:45:00 Test Item Value Reference Range Interpretation [...] S NOT APPLICABLE FOR DIALYSIS PATIEN TS. Oliving Machine Operator ID - JAQUELINE MCBC W/PLT COUNT & AUTO [id number] 05:59:00 Test Item Value Reference Range Interpretation [...] PERCENT (BEAKER) (test code = 2801) POCT-GLUCOSE [id number] 22:30:00 Test Item Value Reference Range Interpretation Comments POC-GLUCOSE METER 126 mg/dL 70-110 H : TESTED A T [facility] 6720 (BEAKER) (test code = [facility], 153) 04111: Oliving Machine Operator/Techni estefani ID = [id number] for Wi sallie, Otelia ANAEROBIC [id number] 19:52:00 Test Item Value Reference Range Interpretation Comments CULTURE (BEAKER) (test No anaerobes isolated code = 1095) ANAEROBIC [id number] 19:52:00 Test Item Value Reference Range Interpretation Comments CULTURE (BEAKER) (test No anaerobes isolated code = 1095) POCT-GLUCOSE [id number] 16:58:00 Test Item Value Reference Range Interpretation Comments POC-GLUCOSE METER 103 mg/dL 70-110 : TESTED A T [facility] 6720 (BEAKER) (test code = [facility], 153) 16778: Oliving Machine Operator/Techni estefani ID = [id number] for LO PEZ, EVONNE VIAL POCT-GLUCOSE [id number] 11:48:00 Test Item Value Reference Range Interpretation Comments POC-GLUCOSE METER 140 mg/dL 70-110 H : TESTED A T [facility] 6720 (BEAKER) (test code = [facility], 153) 63803: Oliving Machine Operator/Techni estefani ID = [id number] for Ca rrroll, Olga POCT-GLUCOSE [id number] 07:22:00 Test Item Value Reference Range Interpretation Comments POC-GLUCOSE METER 96 mg/dL 70-110 : TESTED A T [facility] 6720 (BEAKER) (test code = [facility], 153) 90127: Oliving Machine Operator/Techni estefani ID = [id number] for Scot t, Quanirenasah (cont ract) BASIC METABOLIC [id number] 06:35:00 Test Item Value Reference Range Interpretation [...] S NOT APPLICABLE FOR DIALYSIS PATIEN TS. Oliving Machine Operator ID - EDASICBC W/PLT COUNT & AUTO [id number] 06:02:00 Test Item Value Reference Range Interpretation [...] PERCENT (BEAKER) (test code = 2801) POCT-GLUCOSE [id number] 22:01:00 Test Item Value Reference Range Interpretation Comments POC-GLUCOSE METER 151 mg/dL 70-110 H : TESTED A T [facility] 6720 (BEAKER) (test code = [facility], 153) 035[address]: Oliving Machine Operator/Techni estefani ID = [id number] for MARCY MUIR POCT-GLUCOSE [id number] 17:02:00 Test Item Value Reference Range Interpretation Comments POC-GLUCOSE METER 121 mg/dL 70-110 H : TESTED A T [facility] 6720 (BEAKER) (test code = [facility], 153) 9[address]11: Oliving Machine Operator/Techni estefani ID = [id number] for ESTEFANY GONSALEZ EDSON POCT-GLUCOSE [id number] 10:53:00 Test Item Value Reference Range Interpretation Comments POC-GLUCOSE METER 114 mg/dL 70-110 H : TESTED A T [facility] 6720 (BEAKER) (test code = [facility], 153) 57103: Oliving Machine Operator/Techni estefani ID = [id number] for EDSON MEJIA SURGICALLY OBTAINED CULTURE + GRAM [id number] 09:02:00 Test Item Value Reference Range Interpretation Comments CULTURE (BEAKER) SAME ORGANISM HAS A 1+ Garrett e organism (test code = BEEN ISOLATED FROM has been isolated 167) CULTURES(S) OF THE from cult ures(s) of SAME BODY SITE the same body site WITHIN 3 DAYS. within 3 days . REPEAT Repeat IDENTIFICATION AND identific ation and SUSCEPT. TESTING susceptibil ity PERFORMED ONLY testing perfo rmed AFTER CONSULTATION only afte r WITH THE CLINICAL consultati on with MICROBIOLOGY LAB the [facility].Refe r to previous cultur e ofPseudomonas aeruginosa Ceftazidime/Avib S actam (test code = 250) Ceftolozane/Tazo S bactam (test code = 249) Meropenem/Vaborb actam (test code = 253) CULTURE (BEAKER) A <1+ Escheri cayden (test code = coliNon-viable for 1095) susceptibility CULTURE (BEAKER) VANCOMYCIN A <1+ Vancomy rgeyson (test code = RESISTANT resistant 1095) ENTEROCOCCUS [...] negative RESULT (BEAKER) rods (test code = 156949) POCT-GLUCOSE [id number] 07:42:00 Test Item Value Reference Range Interpretation Comments POC-GLUCOSE METER 85 mg/dL 70-110 : [facility] (BEAKER[facility] (test code = DASIA Garcia [facility], 1538) 57[address]: Oliving Machine Operator/Techni estefani ID = [id number] for EDSON ZARAGOZA BASIC METABOLIC [id number] 06:13:00 Test Item Value Reference Range Interpretation [...] S NOT APPLICABLE FOR DIALYSIS PATIEN TS. Oliving Machine Operator ID - EDASICBC W/PLT COUNT & AUTO [id number] 05:33:00 Test Item Value Reference Range Interpretation [...] PERCENT (BEAKER) (test code = 2801) POCT-GLUCOSE [id number] 22:55:00 Test Item Value Reference Range Interpretation Comments POC-GLUCOSE METER 91 mg/dL 70-110 : TESTED A T [facility] 6720 (BEAKER) (test code = [facility], [facility]8) 90871: Oliving Machine Operator/Techni estefani ID = [id number] for DARRELL LUDWIG POCT-GLUCOSE [id number] 16:20:00 Test Item Value Reference Range Interpretation Comments POC-GLUCOSE METER 123 mg/dL 70-110 H : TESTED A T [facility] 6720 (BEAKER) (test code = [facility], [facility]8) 41971: Oliving Machine Operator/Techni estefani ID = [id number] for REJI SNEED POCT-GLUCOSE [id number] 11:41:00 Test Item Value Reference Range Interpretation Comments POC-GLUCOSE METER 142 mg/dL 70-110 H : TESTED A T [facility] 6720 (BEAKER) (test code = [facility], 1538) 23100: Oliving Machine Operator/Techni estefani ID = [id number] for GRETCHEN RUIZT, REJI POCT-GLUCOSE [id number] 09:19:00 Test Item Value Reference Range Interpretation Comments POC-GLUCOSE METER 115 mg/dL 70-110 H : TESTED A T [facility] 6720 (BEAKER) (test code = [facility], 1538) 70267: Oliving Machine Operator/Techni estefani ID = [id number] for GRETCHEN RUIZT, REJI BASIC METABOLIC [id number] 06:17:00 Test Item Value Reference Range Interpretation [...] S NOT APPLICABLE FOR DIALYSIS PATIEN TS. Oliving Machine Operator ID - JAQUELINE MCBC W/PLT COUNT & AUTO [id number] 05:08:00 Test Item Value Reference Range Interpretation [...] PERCENT (BEAKER) (test code = 2801) POCT-GLUCOSE [id number] 21:32:00 Test Item Value Reference Range Interpretation Comments POC-GLUCOSE METER 138 mg/dL 70-110 H : TESTED A T [facility] 6720 (BEAKER) (test code = DASIA Garcia [facility], 1538) 67276: Oliving Machine Operator/Techni estefani ID = [id number] for ST MAR HALI SARS-COV2/RT-PCR ([facility])2020-01-13 16:42:00 Test Item Value Reference Range Interpretation Comments SARS-COV2/RT-PCR (test Negative Not Detected, Negative, code = 1897800) See external report for linked test SARS-COV-2 PERFORMING LAB [facility] KEELY (test code = 1994899) Negative result for this test determines that [...] the Giles SARS-CoV-2 assay.Fact Sheet for Healthcare Providers:https://www.molecular.giles/ari/RT_SA XY-GpW-4_HSV_Hooa_Edviy_24-638850.pdfFact Sheet for Healthcare Patients:https://www.molecular.giles/ ari/YA_ALVX-YdU-5_Mlrrcjv_Lgrg_Fganf_DW_49-693621P3.pdfPerforming Laboratory:[facility] [address] POCT-GLUCOSE [id number] 15:53:00 Test Item Value Reference Range Interpretation Comments POC-GLUCOSE METER 177 mg/dL 70-110 H : TESTED A T [facility] 6720 (NOE) ([place], [address]: code = 1538) Oliving Machine Operator/Techni estefani ID = [id number] for SINDI SANCHEZ IN POCT-GLUCOSE [id number] 11:29:00 Test Item Value Reference Range Interpretation Comments POC-GLUCOSE METER 132 mg/dL 70-110 H : TESTED A T [facility] 6720 ([facility]) ([facility] [place], [address]: code = 1538) Oliving Machine Operator/Techni estefani ID = [id number] for SINDI SANCHEZ IN SURGICALLY OBTAINED CULTURE + GRAM [id number] 08:54:00 Test Item Value Reference Range Interpretation Comments CULTURE ([facility]) A 1+ Same org anism has been (test code = 1095) isolated from cultures(s) of the same bod y site within 3 days. Repeat identification and susceptibility testing performed only after consultation wi the clinical microb iology laboratory.Refe r to previous cultur e ofPseudomonas a eruginosa POCT-GLUCOSE [id number] 07:31:00 Test Item Value Reference Range Interpretation Comments POC-GLUCOSE METER 124 mg/dL 70-110 H : TESTED A T [facility] 6720 ([facility]) (test [facility] [place], [address]: code = 1538) Oliving Machine Operator/Techni estefani ID = [id number] for SINDI SANCHEZ IN POCT-GLUCOSE [id number] 22:46:00 Test Item Value Reference Range Interpretation Comments POC-GLUCOSE METER 185 mg/dL 70-110 H : TESTED A T [facility] 6720 ([facility]) (test code = [facility], 153) 0[address]49: Oliving Machine Operator/Techni estefani ID = [id number] for LA SALLIE, ALLA POCT-GLUCOSE [id number] 16:38:00 Test Item Value Reference Range Interpretation Comments POC-GLUCOSE METER 153 mg/dL 70-110 H : TESTED A T [facility] 6720 ([facility]) (test code = [facility], 153) 70850: Oliving Machine Operator/Techni estefani ID = [id number] for OMAS, COSHA POCT-GLUCOSE [id number] 12:15:00 Test Item Value Reference Range Interpretation Comments POC-GLUCOSE METER 151 mg/dL 70-110 H : Notified RN/MD: ([facility]) (test code = TESTED AT [facility] 6720 1537) [facility], [address]: Oliving Machine Operator/Techni estefani ID = [id number] for TH OMAS, COSHA WOUND CULTURE + GRAM [id number] 09:32:00 Test Item Value Reference Range Interpretation [...] No organisms seen (BEAKER) (test code = 098827) POCT-GLUCOSE [id number] 07:11:00 Test Item Value Reference Range Interpretation Comments POC-GLUCOSE METER 121 mg/dL 70-110 H : Notified RN/MD: (BEAKER) (test code = TESTED AT [facility] 5545 5250) [facility], [address]: Oliving Machine Operator/Techni estefani ID = [id number] for MOLLY ESCAMILLA [facility] BASIC METABOLIC [id number] 05:27:00 Test Item Value Reference Range Interpretation [...] S NOT APPLICABLE FOR DIALYSIS PATIEN TS. Oliving Machine Operator ID - EDASICBC W/PLT COUNT & AUTO [id number] 04:50:00 Test Item Value Reference Range Interpretation [...] PERCENT (BEAKER) (test code = 2801) POCT-GLUCOSE [id number] 21:56:00 Test Item Value Reference Range Interpretation Comments POC-GLUCOSE METER 196 mg/dL 70-110 H : TESTED A T [facility] 6720 (BEAKER) (test code = [facility], 1538) 26201: Oliving Machine Operator/Techni estefani ID = [id number] for PRASANNA NILEJOSHUA BLOOD [id number] 17:00:00 Test Item Value Reference Range Interpretation Comments CULTURE (BEAKER) (test No growth in 5 days code = 1095) BLOOD [id number] 17:00:00 Test Item Value Reference Range Interpretation Comments CULTURE (BEAKER) (test No growth in 5 days code = 1095) POCT-GLUCOSE [id number] 15:32:00 Test Item Value Reference Range Interpretation Comments POC-GLUCOSE METER 132 mg/dL 70-110 H : TESTED A T [facility] 6720 (BEAKER) (test code = [facility], 153) 31243: Oliving Machine Operator/Techni estefani ID = [id number] for Juliano Aleman SPIN/CONCENTRATION [id number] 14:39:00 Test Item Value Reference Range Interpretation Comments CONCENTRATION CHARGED (BEAKER) (test Done code = 2657) SPIN/CONCENTRATION [id number] 14:39:00 Test Item Value Reference Range Interpretation Comments CONCENTRATION CHARGED (BEAKER) (test Done code = 2657) POCT-GLUCOSE [id number] 13:00:00 Test Item Value Reference Range Interpretation Comments POC-GLUCOSE METER 187 mg/dL 70-110 H : TESTED A T [facility] 6720 (BEAKER) (test code = DASIA Garcia [place], 1538) 48[address]: Oliving Machine Operator/Techni estefani ID = [id number] for Juliano Aleman [id number] 11:53:00 Test Item Value Reference Range Interpretation Comments PHOSPHORUS (BEAKER) (test code = 2.9 mg/dL 2.3-4.7 604) Oliving Machine Operator ID - ADMINPOCT-GLUCOSE [id number] 09:45:00 Test Item Value Reference Range Interpretation Comments POC-GLUCOSE METER 117 mg/dL 70-110 H : TESTED A T [facility] 6720 (BEAKER) (test code = [facility] [place], 1538) [address]: Oliving Machine Operator/Techni estefani ID = [id number] for LISA DALLAS BASIC METABOLIC [id number] 05:46:00 Test Item Value Reference Range Interpretation [...] S NOT APPLICABLE FOR DIALYSIS PATIEN TS. Oliving Machine Operator ID - ADMINCBC W/PLT COUNT & AUTO [id number] 05:13:00 Test Item Value Reference Range Interpretation [...] PERCENT (BEAKER) (test code = 2801) POCT-GLUCOSE [id number] 22:36:00 Test Item Value Reference Range Interpretation Comments POC-GLUCOSE METER 214 mg/dL 70-110 H : TESTED A T [facility] 6720 (BEAKER) (test code = [facility], 1538) 18204: Oliving Machine Operator/Techni estefani ID = [id number] for JOSHUA GONZALEZ POCT-GLUCOSE [id number] 19:08:00 Test Item Value Reference Range Interpretation Comments POC-GLUCOSE METER 106 mg/dL 70-110 : TESTED A T [facility] 6720 (BEAKER) (test code = [facility], 1538) 08198: Oliving Machine Operator/Techni estefani ID = [id number] for ROSE GONZALES POCT-GLUCOSE [id number] 12:38:00 Test Item Value Reference Range Interpretation Comments POC-GLUCOSE METER 114 mg/dL 70-110 H : TESTED A T [facility] 6720 (BEAKER) (test code = [facility], 1538) 08337: Oliving Machine Operator/Techni estefani ID = [id number] for KHADRA SKELTON POCT-GLUCOSE [id number] 10:42:00 Test Item Value Reference Range Interpretation Comments POC-GLUCOSE METER 121 mg/dL 70-110 H : TESTED A T [facility] 6720 (BEAKER) (test code = [facility], [facility]8) 28992: Oliving Machine Operator/Techni estefani ID = [id number] for KHADRA SKELTON BASIC METABOLIC [id number] 06:21:00 Test Item Value Reference Range Interpretation [...] S NOT APPLICABLE FOR DIALYSIS PATIEN TS. Oliving Machine Operator ID - JAQUELINE [id number] 06:18:00 Test Item Value Reference Range Interpretation Comments PHOSPHORUS (BEAKER) (test code = 2.6 mg/dL 2.3-4.7 604) Oliving Machine Operator ID - JAQUELINE MCBC W/PLT COUNT & AUTO [id number] 05:50:00 Test Item Value Reference Range Interpretation [...] PERCENT (BEAKER) (test code = 2801) POCT-GLUCOSE [id number] 21:36:00 Test Item Value Reference Range Interpretation Comments POC-GLUCOSE METER 158 mg/dL 70-110 H : TESTED A T [facility] 6720 (BEAKER) (test code [facility], = 1538) 14052: Oliving Machine Operator/Techni estefani ID = [id number] for LATASHA GOVEA ROMULO POCT-GLUCOSE [id number] 17:12:00 Test Item Value Reference Range Interpretation Comments POC-GLUCOSE METER 212 mg/dL 70-110 H : TESTED A T [facility] 6720 (BEAKER) (test code = [facility], 1538) 69208: Oliving Machine Operator/Techni estefani ID = [id number] for OL MOS, SUREKHA POCT-GLUCOSE [id number] 11:24:00 Test Item Value Reference Range Interpretation Comments POC-GLUCOSE METER 159 mg/dL 70-110 H : TESTED A T [facility] 6720 (BEAKER) (test code = [facility], 1538) 84108: Oliving Machine Operator/Techni estefani ID = [id number] for OL MOS, SUREKHA POCT-GLUCOSE [id number] 10:21:00 Test Item Value Reference Range Interpretation Comments POC-GLUCOSE METER 111 mg/dL 70-110 H : TESTED A T [facility] 6720 (BEAKER) (test code = [facility], 1538) 53593: Oliving Machine Operator/Techni estefani ID = [id number] for ANNMARIE P[place] BASIC METABOLIC [id number] 05:04:00 Test Item Value Reference Range Interpretation [...] S NOT APPLICABLE FOR DIALYSIS PATIEN TS. Oliving Machine Operator ID - JAQUELINE [id number] 04:57:00 Test Item Value Reference Range Interpretation Comments MAGNESIUM (BEAKER) (test code = 2.0 mg/dL 1.6-2.6 627) Oliving Machine Operator ID - JAQUELINE [id number] 04:57:00 Test Item Value Reference Range Interpretation Comments PHOSPHORUS (BEAKER) (test code = 2.5 mg/dL 2.3-4.7 604) Oliving Machine Operator ID - JAQUELINE MCBC W/PLT COUNT & AUTO [id number] 04:37:00 Test Item Value Reference Range Interpretation [...] PERCENT (BEAKER) (test code = 2801) POCT-GLUCOSE [id number] 22:46:00 Test Item Value Reference Range Interpretation Comments POC-GLUCOSE METER 163 mg/dL 70-110 H : TESTED A T [facility] 6720 (BEAKER) (test code = D[facility]IA [place], 1538) [address]: Oliving Machine Operator/Techni estefani ID = [id number] for TUYET BORJA POCT-GLUCOSE [id number] 16:09:00 Test Item Value Reference Range Interpretation Comments POC-GLUCOSE METER 141 mg/dL 70-110 H : TESTED A T [facility] 6720 (BEAKER) (test code = [facility], 1538) 90135: Oliving Machine Operator/Techni estefani ID = [id number] for Wi llis, Tabby POCT-GLUCOSE [id number] 11:19:00 Test Item Value Reference Range Interpretation Comments POC-GLUCOSE METER 119 mg/dL 70-110 H : TESTED A T [facility] 6720 (BEAKER) (test code = [facility], 1538) 8[address]39: Oliving Machine Operator/Techni estefani ID = [id number] for Jose lldeborah, Tabby POCT-GLUCOSE [id number] 08:29:00 Test Item Value Reference Range Interpretation Comments POC-GLUCOSE METER 102 mg/dL 70-110 : TESTED A T [facility] 6720 (BEAKER) (test code = [facility], 1538) 35442: Oliving Machine Operator/Techni estefani ID = [id number] for ARCELIA SUAZO [id number] 06:50:00 Test Item Value Reference Range Interpretation Comments FERRITIN (BEAKER) (test code = 623.64 ng/mL 5.00-275.00 H 361) Oliving Machine Operator ID - ADMINIRON, TIBC, % SAT. (WITHOUT FERRITIN)2020-01-08 06:28:00 Test Item Value Reference Range Interpretation Comments IRON (BEAKER) (test code = 547) 17.0 ug/dL 40.0-160.0 L TOTAL IRON BINDING CAPACITY 128 ug/dL 250-450 L (BEAKER) (test code = 769) IRON % SATURATION (2) (BEAKER) 13 % 20-55 L (test code = 2590) Oliving Machine Operator ID - ADMINVANCOMYCIN LEVEL, [id number] 06:26:00 Test Item Value Reference Range Interpretation Comments VANCOMYCIN RANDOM (BEAKER) (test 20.4 ug/mL code = 523) Reference Range: No NormalsOperator ID - ADMINBASIC METABOLIC [id number] 02:21:00 Test Item Value Reference Range Interpretation [...] S NOT APPLICABLE FOR DIALYSIS PATIEN TS. Oliving Machine Operator ID - [id number] 02:09:00 Test Item Value Reference Range Interpretation Comments MAGNESIUM (BEAKER) (test code = 1.8 mg/dL 1.6-2.6 627) Oliving Machine Operator ID - [id number] 02:09:00 Test Item Value Reference Range Interpretation Comments PHOSPHORUS (BEAKER) (test code = 2.4 mg/dL 2.3-4.7 604) Oliving Machine Operator ID - [id number] 02:06:00 Test Item Value Reference Range Interpretation Comments PARTIAL THROMBOPLASTIN TIME 46.2 seconds 22.5-36.0 H (BEAKER) (test code = 760) PROTHROMBIN [id number] 02:05:00 Test Item Value Reference Range Interpretation [...] is 2.5-3.5 for patients wiht mechanical heart valves.CBC W/PLT COUNT & AUTO [id number] 02:03:00 Test Item Value Reference Range Interpretation [...] PERCENT (BEAKER) (test code = 2801) POCT-GLUCOSE [id number] 00:26:00 Test Item Value Reference Range Interpretation Comments POC-GLUCOSE METER 118 mg/dL 70-110 H : TESTED A T [facility] 6720 (BEAKER) (test code = [facility], 153) 368[address]: Oliving Machine Operator/Techni estefani ID = [id number] for Ez Laura farmer POCT-GLUCOSE [id number] 16:33:00 Test Item Value Reference Range Interpretation Comments POC-GLUCOSE METER 154 mg/dL 70-110 H : TESTED A T [facility] 6720 (BEAKER) (test code = [facility], 1538) 27006: Oliving Machine Operator/Techni estefani ID = [id number] for CO X, RADHA POCT-GLUCOSE [id number] 13:11:00 Test Item Value Reference Range Interpretation Comments POC-GLUCOSE METER 169 mg/dL 70-110 H : TESTED A T [facility] 6720 (BEAKER) (test code = [facility], 153) [address]: Oliving Machine Operator/Techni estefani ID = [id number] for Celi Jesus CBC W/PLT COUNT & AUTO [id number] 10:36:00 Test Item Value Reference Range Interpretation [...] PERCENT (BEAKER) (test code = 2801) POCT-GLUCOSE [id number] 07:59:00 Test Item Value Reference Range Interpretation Comments POC-GLUCOSE METER 107 mg/dL 70-110 : TESTED A T [facility] 6720 (BEAKER) (test code = [facility] [place], 1538) [address]: Oliving Machine Operator/Techni estefani ID = [id number] for RADHA SHELTON BASIC METABOLIC [id number] 07:01:00 Test Item Value Reference Range Interpretation [...] S NOT APPLICABLE FOR DIALYSIS PATIEN TS. Oliving Machine Operator ID - ANTONY [id number] 07:00:00 Test Item Value Reference Range Interpretation Comments MAGNESIUM (BEAKER) (test code = 1.9 mg/dL 1.6-2.6 627) Oliving Machine Operator ID - ANTONY [id number] 07:00:00 Test Item Value Reference Range Interpretation Comments PHOSPHORUS (BEAKER) (test code = 4.4 mg/dL 2.3-4.7 604) Oliving Machine Operator ID - ANTONY FVANCOMYCIN LEVEL, [id number] 06:30:00 Test Item Value Reference Range Interpretation Comments VANCOMYCIN RANDOM (BEAKER) (test 16.1 ug/mL code = 523) Reference Range: No NormalsOperator ID - EDASICBC W/PLT COUNT & AUTO [id number] 05:53:00 Test Item Value Reference Range Interpretation [...] PERCENT (BEAKER) (test code = 2801) POCT-GLUCOSE [id number] 23:03:00 Test Item Value Reference Range Interpretation Comments POC-GLUCOSE METER 144 mg/dL 70-110 H : TESTED A T [facility] 6720 (BEAKER) (test code = [facility] [place], 1538) [address]: Oliving Machine Operator/Techni estefani ID = [id number] for Flaco kilo Pamela SARS-COV2/RT-PCR ([facility])2020-01-06 21:26:00 Test Item Value Reference Range Interpretation Comments SARS-COV2/RT-PCR (test code Negative Not Detected, Negative, = 4334524) See external report for linked test SARS-COV-2 PERFORMING LAB [facility] (test code = 8964872) Negative results do not preclude SARS-CoV-2 infection [...] of the Act.Fact Sheet for Healthcare Pro viders:https://www.[employer]/Documents/Xpert%20Xpress%20SARS%20CoV-2/Fact%20Sh eets/3023802%52FYQB-WOC-4%20HEALTHCARE%20PROVIDERS%20FACT%20SHEET.pdfFact Sheet for Healthcare Patients:https://www.[employer]/Documents/Xpert%20Xpress%20SARS%20CoV-2/Fact%20Sheets/3023801%20SARS-COV -2%20PATIENT%20FACT%20SHEET.pdfPerforming Laboratory:[facility], [place] [address]OCKJCT ACID, [id number] 20:26:00 Test Item Value Reference Range Interpretation Comments LACTATE BLOOD VENOUS (2) (BEAKER) 0.61 mmol/L 0.50-2.20 (test code = 2872) Oliving Machine Operator ID - DBRAPID INFLUENZA A&B [id number] 20:15:00 Test Item Value Reference Range Interpretation Comments RAPID INFLUENZA A AG (BEAKER) Negative Negative, Inconclusive (test code = 1622) RAPID INFLUENZA B AG (BEAKER) Negative Negative, Inconclusive (test code = 1623) RAD, CHEST, 1 VIEW, NON [id number] 17:48:00Reason for exam:->FEVERReason for exam:->EMESISReason for exam:->WOUND CHECKShould this be performed at the bedside?->Yes [facility] : 1960 Sex: MFINAL REPORTPATIENT ID: [id number] TECHNIQUE: Frontal view of the chest. INDICATION: FEVEREMESISWOUND CHECK COMPARISON: None. FINDINGS: LINES/TUBES: None. LUNGS: Increased interstitial opacities throughout the bilateral lungs.. No focal consolidation.. PLEURA: No pneumothorax or significant pleural effusion. HEART AND MEDIASTINUM: The cardiomediastinal silhouette is enlarged. Postsurgical changes noted from mediansternotomy.. SOFT TISSUES AND BONES: Unremarkable. IMPRESSION:Cardiomegaly with [...] MDReport Verified Date/Time: 01/06/2020 17:48:53 Reading Location: [facility] B1 C013Y CT Body Reading Room RAD, FOOT, MIN 3 VIEWS, RIGHT 2020-01-06 17:48:00Reason for exam:->FEVERReason for exam:->EMESISReason for exam:->WOUND CHECK [facility] : 1960 Sex: MFINAL REPORTPATIENT ID: [id number] TECHNIQUE: Frontal view of the chest. INDICATION: FEVEREMESISWOUND CHECK COMPARISON: None. FINDINGS: LINES/TUBES: None. LUNGS: Increased interstitial opacities throughout the bilateral lungs.. No focal consolidation.. PLEURA: No pneumothorax or significant pleural effusion. HEART AND MEDIASTINUM: The cardiomediastinal silhouette is enlarged. Postsurgical changes noted from mediansternotomy.. SOFT TISSUES AND BONES: Unremarkable. IMPRESSION:Cardiomegaly with [...] MDReport Verified Date/Time: 01/06/2020 17:48:53 Reading Location: [facility] B1 C013Y CT Body Reading Room (CELLAVISION MANUAL [...] CONCENTRATION Adequate (CELLAVISION)(BEAKER) (test code = 3438) Oliving Machine Operator ID - ruth ann Amin comments: Slide comments:[id number] 17:24:00 Test Item Value Reference Range Interpretation Comments PARTIAL THROMBOPLASTIN TIME 37.5 seconds 22.5-36.0 H (BEAKER) (test code = 760) POCT-GLUCOSE [id number] 17:23:00 Test Item Value Reference Range Interpretation Comments POC-GLUCOSE METER 145 mg/dL 70-110 H : Notified RN/MD: (BEAKER) (test code = TESTED AT [facility] 6720 1531) [facility], [address]: Oliving Machine Operator/Techni estefani ID = [id number] for ROMAIN REEVES PROTHROMBIN [id number] 17:23:00 Test Item Value Reference Range Interpretation [...] is 2.5-3.5 for patients wiht mechanical heart valves.HEPATIC FUNCTION [id number] 17:01:00 Test Item Value Reference Range Interpretation [...] (test code = 8 U/L 6-55 347) Oliving Machine Operator ID - EDASIBASIC METABOLIC [id number] 17:01:00 Test Item Value Reference Range Interpretation [...] S NOT APPLICABLE FOR DIALYSIS PATIEN TS. Oliving Machine Operator ID - EDASILACTIC ACID, [id number] 17:01:00 Test Item Value Reference Range Interpretation Comments LACTATE BLOOD VENOUS (2) (BEAKER) 1.36 mmol/L 0.50-2.20 (test code = 2872) Oliving Machine Operator ID - EDASICBC W/PLT COUNT & AUTO [id number] 16:55:00 Test Item Value Reference Range Interpretation [...] (BEAKER) (test code = 2801) BLOOD GAS, [id number] 16:47:00 Test Item Value Reference Range Interpretation [...] code = 1819) 21.0 FUNGUS CULTURE + [id number] 17:16:00 Test Item Value Reference Range Interpretation [...] bacilli (test code = 994) seen POCT-GLUCOSE [id number] 11:45:00 Test Item Value Reference Range Interpretation Comments POC-GLUCOSE METER 126 mg/dL 70-110 H : TESTED A T [facility] 6720 (BEAKER) (test code [facility], = 1538) [address]: Oliving Machine Operator/Techni estefani ID = [id number] for WILS ON, JORGESTANIE POCT-GLUCOSE [id number] 07:39:00 Test Item Value Reference Range Interpretation Comments POC-GLUCOSE METER 94 mg/dL 70-110 : TESTED A T [facility] 6720 (BEAKER) (test code = [facility], 1538) 58448: Oliving Machine Operator/Techni estefani ID = [id number] for WILS ON, SHASTANIE CBC W/PLT COUNT & AUTO [id number] 05:28:00 Test Item Value Reference Range Interpretation [...] (BEAKER) (test code = 2801) BASIC METABOLIC [id number] 05:25:00 Test Item Value Reference Range Interpretation [...] S NOT APPLICABLE FOR DIALYSIS PATIEN TS. Oliving Machine Operator ID - [id number] 05:03:00 Test Item Value Reference Range Interpretation Comments MAGNESIUM (BEAKER) (test code = 2.0 mg/dL 1.6-2.6 627) Oliving Machine Operator ID - DBPOCT-GLUCOSE [id number] 21:31:00 Test Item Value Reference Range Interpretation Comments POC-GLUCOSE METER 138 mg/dL 70-110 H : TESTED A T [facility] 6720 (BEAKER) (test code = [facility], 153) 51039: Oliving Machine Operator/Techni estefani ID = [id number] for PHIL MURRELL TTE POCT-GLUCOSE [id number] 16:39:00 Test Item Value Reference Range Interpretation Comments POC-GLUCOSE METER 119 mg/dL 70-110 H : TESTED A T [facility] 6720 (BEAKER) (test code = [facility], 153) 23214: Oliving Machine Operator/Techni estefani ID = [id number] for NEETA ROLLINS POCT-GLUCOSE [id number] 11:42:00 Test Item Value Reference Range Interpretation Comments POC-GLUCOSE METER 133 mg/dL 70-110 H : TESTED A T [facility] 6720 (BEAKER) (test code = [facility], 153) 09900: Oliving Machine Operator/Techni estefani ID = [id number] for NEETA ROLLINS POCT-GLUCOSE [id number] 07:52:00 Test Item Value Reference Range Interpretation Comments POC-GLUCOSE METER 80 mg/dL 70-110 : TESTED A T [facility] 6720 (BEAKER) (test code = [place], 1538) 68339: Oliving Machine Operator/Techni estefani ID = [id number] for NEETA ASHLEY HEPATITIS B SURFACE [id number] 07:04:00 Test Item Value Reference Range Interpretation Comments HEPATITIS B SURFACE ANTIGEN (2) Nonreactive Nonreactive (BEAKER) (test code = 2585) Specimen is considered negative for HBsAg.BASIC METABOLIC [id number] 06:35:00 Test Item Value Reference Range Interpretation [...] S NOT APPLICABLE FOR DIALYSIS PATIEN TS. Oliving Machine Operator ID - [id number] 06:26:00 Test Item Value Reference Range Interpretation Comments MAGNESIUM (BEAKER) (test code = 2.1 mg/dL 1.6-2.6 627) Oliving Machine Operator ID - DBCBC W/PLT COUNT & AUTO [id number] 06:10:00 Test Item Value Reference Range Interpretation [...] PERCENT (BEAKER) (test code = 2801) POCT-GLUCOSE [id number] 20:59:00 Test Item Value Reference Range Interpretation Comments POC-GLUCOSE METER 164 mg/dL 70-110 H : TESTED A T [facility] 6720 (BEAKER) (test code = [facility], 153) 07024: Oliving Machine Operator/Techni estefani ID = [id number] for PHIL MURRELL POCT-GLUCOSE [id number] 17:56:00 Test Item Value Reference Range Interpretation Comments POC-GLUCOSE METER 121 mg/dL 70-110 H : TESTED A T [facility] 6720 (BEAKER) (test code = [facility], 1538) 32153: Oliving Machine Operator/Techni estefani ID = [id number] for NEETA ROLLINS POCT-GLUCOSE [id number] 14:21:00 Test Item Value Reference Range Interpretation Comments POC-GLUCOSE METER 152 mg/dL 70-110 H : TESTED A T [facility] 6720 (BEAKER) (test code = [facility], 1538) 34832: Oliving Machine Operator/Techni estefani ID = [id number] for KALLI BOOGIE POCT-GLUCOSE [id number] 12:50:00 Test Item Value Reference Range Interpretation Comments POC-GLUCOSE METER 134 mg/dL 70-110 H : TESTED A T [facility] 6720 (BEAKER) (test code = [facility], 1538) 58276: Oliving Machine Operator/Techni estefani ID = [id number] for NEETA ROLLINS POCT-GLUCOSE [id number] 08:03:00 Test Item Value Reference Range Interpretation Comments POC-GLUCOSE METER 104 mg/dL 70-110 : TESTED A T [facility] 6720 (BEAKER) (test code = [facility], 1538) 30727: Oliving Machine Operator/Techni estefani ID = [id number] for NEETA ROLLINS BASIC METABOLIC [id number] 07:07:00 Test Item Value Reference Range Interpretation [...] S NOT APPLICABLE FOR DIALYSIS PATIEN TS. Oliving Machine Operator ID - [id number] 07:00:00 Test Item Value Reference Range Interpretation Comments MAGNESIUM (BEAKER) (test code = 1.9 mg/dL 1.6-2.6 627) Oliving Machine Operator ID - EDASICBC W/PLT COUNT & AUTO [id number] 06:15:00 Test Item Value Reference Range Interpretation [...] PERCENT (BEAKER) (test code = 2801) POCT-GLUCOSE [id number] 22:35:00 Test Item Value Reference Range Interpretation Comments POC-GLUCOSE METER 152 mg/dL 70-110 H : TESTED A T [facility] 6720 (BEAKER) (test code = [facility], 153) 69565: Oliving Machine Operator/Techni estefani ID = [id number] for SUMAN FAM POCT-GLUCOSE [id number] 15:46:00 Test Item Value Reference Range Interpretation Comments POC-GLUCOSE METER 93 mg/dL 70-110 : TESTED A T [facility] 6720 (BEAKER) (test code = [facility], 153) 48476: Oliving Machine Operator/Techni estefani ID = [id number] for Dania ano, Avery POCT-GLUCOSE [id number] 08:50:00 Test Item Value Reference Range Interpretation Comments POC-GLUCOSE METER 143 mg/dL 70-110 H : TESTED A T [facility] 6720 (BEAKER) (test code = [facility], 153) 35978: Oliving Machine Operator/Techni estefani ID = [id number] for AGUSTÍN IAIN GUTIERREZ BASIC METABOLIC [id number] 06:41:00 Test Item Value Reference Range Interpretation [...] S NOT APPLICABLE FOR DIALYSIS PATIEN TS. Oliving Machine Operator ID - [id number] 06:40:00 Test Item Value Reference Range Interpretation Comments MAGNESIUM (BEAKER) (test code = 2.0 mg/dL 1.6-2.6 627) Oliving Machine Operator ID - EDASICBC W/PLT COUNT & AUTO [id number] 05:58:00 Test Item Value Reference Range Interpretation [...] PERCENT (BEAKER) (test code = 2801) SARS-COV2/RT-PCR ([facility])2019-12-21 00:21:00 Test Item Value Reference Range Interpretation Comments SARS-COV2/RT-PCR (test Negative Not Detected, Negative, code = 1585547) See external report for linked test SARS-COV-2 PERFORMING LAB [facility] (test code = 7298310) Negative result for this test determines that [...] justifying the authorization of the emergency use ofin vitro diagnostic tests for detection and/or diagnosis of COVID-19 is terminated under Section 564(b)(2) of the Act or the EUA is revoked under Section 564(g) of the Act.Fact Sheet for Healthcare Prov iders:https://www.[employer]/sites/default/files/product/documents/Fact_Sheet_HC _Mytjfkimd_Ccwo_EYAP-UyO-7.pdfFact Sheet for Healthcare Patients:https://www.[employer]/sites/default/files/product/docume nts/Cyfq_Bskbr_Hyjuglyg_Yfka_FKZT-JdR-4.pdfPerforming Laboratory:[address] Davies.[place], [place] [address]KHAQ-THAXUYU METER 2019-12-20 20:53:00 Test Item Value Reference Range Interpretation Comments POC-GLUCOSE METER 180 mg/dL 70-110 H : Notified RN/MD: (NOE) (test code = TESTED AT [place] [address] 1538) [facility], [address]: Oliving Machine Operator/Techni estefani ID = [id number] for ELMIRA LOPEZ POCT-GLUCOSE [id number] 16:41:00 Test Item Value Reference Range Interpretation Comments POC-GLUCOSE METER 167 mg/dL 70-110 H : TESTED A T [place] [address] (NOE) (test code [facility], = 1538) 93684: Oliving Machine Operator/Techni estefani ID = [id number] for WILS ON, JORGESTANIE POCT-GLUCOSE [id number] 12:02:00 Test Item Value Reference Range Interpretation Comments POC-GLUCOSE METER 158 mg/dL 70-110 H : TESTED A T [facility] 6720 (BEAKER) (test code [facility], = 1538) 99052: Oliving Machine Operator/Techni estefani ID = [id number] for WILS ON, SHASTANIE POCT-GLUCOSE [id number] 07:49:00 Test Item Value Reference Range Interpretation Comments POC-GLUCOSE METER 116 mg/dL 70-110 H : TESTED A T [facility] 6720 (BEAKER) (test code [facility], = 1538) 67165: Oliving Machine Operator/Techni estefani ID = [id number] for WILS ON, SHASTANIE BASIC METABOLIC [id number] 06:52:00 Test Item Value Reference Range Interpretation [...] S NOT APPLICABLE FOR DIALYSIS PATIEN TS. Oliving Machine Operator ID - JAQUELINE [id number] 06:40:00 Test Item Value Reference Range Interpretation Comments MAGNESIUM (BEAKER) (test code = 1.9 mg/dL 1.6-2.6 627) Oliving Machine Operator ID - JAQUELINE MCBC W/PLT COUNT & AUTO [id number] 05:53:00 Test Item Value Reference Range Interpretation [...] PERCENT (BEAKER) (test code = 2801) POCT-GLUCOSE [id number] 20:47:00 Test Item Value Reference Range Interpretation Comments POC-GLUCOSE METER 221 mg/dL 70-110 H : Notified RN/MD: (BEAKER) (test code = TESTED AT [facility] 6720 1538) [facility], [address]: Oliving Machine Operator/Techni estefani ID = [id number] for ELMIRA LOPEZ ANAEROBIC [id number] 20:08:00 Test Item Value Reference Range Interpretation Comments CULTURE (BEAKER) (test No anaerobes isolated code = 1095) POCT-GLUCOSE [id number] 16:36:00 Test Item Value Reference Range Interpretation Comments POC-GLUCOSE METER 190 mg/dL 70-110 H : TESTED A T [facility] 6720 (BEAKER) (test code [facility], = 1538) 60590: Oliving Machine Operator/Techni estefani ID = [id number] for CONCETTAS JOSE GUZMANE POCT-GLUCOSE [id number] 09:20:00 Test Item Value Reference Range Interpretation Comments POC-GLUCOSE METER 106 mg/dL 70-110 : TESTED A T [facility] 6720 (BEAKER) (test code [facility], = 1538) 31257: Oliving Machine Operator/Techni estefani ID = [id number] for CONCETTAS ONJOSEE BASIC METABOLIC [id number] 05:49:00 Test Item Value Reference Range Interpretation [...] S NOT APPLICABLE FOR DIALYSIS PATIEN TS. Oliving Machine Operator ID - JAQUELINE [id number] 05:48:00 Test Item Value Reference Range Interpretation Comments MAGNESIUM (BEAKER) (test code = 2.1 mg/dL 1.6-2.6 627) Oliving Machine Operator ID - JAQUELINE MCBC W/PLT COUNT & AUTO [id number] 05:44:00 Test Item Value Reference Range Interpretation [...] PERCENT (BEAKER) (test code = 2801) POCT-GLUCOSE [id number] 20:14:00 Test Item Value Reference Range Interpretation Comments POC-GLUCOSE METER 181 mg/dL 70-110 H : TESTED A T [facility] 6720 (BEAKER) (test code = [facility], 1538) 66218: Oliving Machine Operator/Techni estefani ID = [id number] for CR BERT, TIA POCT-GLUCOSE [id number] 18:20:00 Test Item Value Reference Range Interpretation Comments POC-GLUCOSE METER 148 mg/dL 70-110 H : TESTED A T [facility] 6720 (BEAKER) (test code = [facility], 153) 56063: Oliving Machine Operator/Techni estefani ID = [id number] for GR AHAM, KAREN BASIC METABOLIC [id number] 06:50:00 Test Item Value Reference Range Interpretation [...] S NOT APPLICABLE FOR DIALYSIS PATIEN TS. Oliving Machine Operator ID - [id number] 06:49:00 Test Item Value Reference Range Interpretation Comments MAGNESIUM (BEAKER) (test code = 2.0 mg/dL 1.6-2.6 627) Oliving Machine Operator ID - EDASICBC W/PLT COUNT & AUTO [id number] 05:57:00 Test Item Value Reference Range Interpretation [...] PERCENT (BEAKER) (test code = 2801) POCT-GLUCOSE [id number] 20:12:00 Test Item Value Reference Range Interpretation Comments POC-GLUCOSE METER 217 mg/dL 70-110 H : TESTED A T [facility] 6720 (BEAKER) (test code = [facility], 1538) 25940: Oliving Machine Operator/Techni estefani ID = [id number] for NELLI SHOOK POCT-GLUCOSE [id number] 14:00:00 Test Item Value Reference Range Interpretation Comments POC-GLUCOSE METER 97 mg/dL 70-110 : TESTED A T [facility] 6720 (BEAKER) (test code = [facility], 1538) 34898: Oliving Machine Operator/Techni estefani ID = [id number] for JOSELIN ESCALONA BASIC METABOLIC [id number] 05:12:00 Test Item Value Reference Range Interpretation [...] S NOT APPLICABLE FOR DIALYSIS PATIEN TS. Oliving Machine Operator ID - JAQUELINE [id number] 05:09:00 Test Item Value Reference Range Interpretation Comments MAGNESIUM (BEAKER) (test code = 2.1 mg/dL 1.6-2.6 627) Oliving Machine Operator ID - JAQUELINE MCBC W/PLT COUNT & AUTO [id number] 04:38:00 Test Item Value Reference Range Interpretation [...] PERCENT (BEAKER) (test code = 2801) POCT-GLUCOSE [id number] 21:09:00 Test Item Value Reference Range Interpretation Comments POC-GLUCOSE METER 156 mg/dL 70-110 H : TESTED A T [facility] 6720 (BEAKER) (test code = [facility], 1538) 37831: Oliving Machine Operator/Techni estefani ID = [id number] for ROSIO DUFF POCT-GLUCOSE [id number] 16:53:00 Test Item Value Reference Range Interpretation Comments POC-GLUCOSE METER 135 mg/dL 70-110 H : TESTED A T [facility] 6720 (BEAKER) (test code [facility], = 1538) 70352: Oliving Machine Operator/Techni estefani ID = [id number] for WILS ON, SHASTANIE POCT-GLUCOSE [id number] 11:36:00 Test Item Value Reference Range Interpretation Comments POC-GLUCOSE METER 115 mg/dL 70-110 H : TESTED A T [facility] 6720 (BEAKER) (test code [facility], = 1538) 98730: Oliving Machine Operator/Techni estefani ID = [id number] for WILS ON, SHASTANIE SURGICALLY OBTAINED CULTURE + GRAM [id number] 08:39:00 Test Item Value Reference Range Interpretation [...] gram negative (BEAKER) (test code = rods 953856) POCT-GLUCOSE [id number] 07:57:00 Test Item Value Reference Range Interpretation Comments POC-GLUCOSE METER 75 mg/dL 70-110 : TESTED A T [facility] 6720 (BEAKER) (test code = [place], 1538) 85749: Oliving Machine Operator/Techni estefani ID = [id number] for JOSELIN ESCALONA CBC W/PLT COUNT & AUTO [id number] 06:19:00 Test Item Value Reference Range Interpretation [...] (BEAKER) (test code = 2801) BASIC METABOLIC [id number] 06:14:00 Test Item Value Reference Range Interpretation [...] S NOT APPLICABLE FOR DIALYSIS PATIEN TS. Oliving Machine Operator ID - DANITZA [id number] 06:13:00 Test Item Value Reference Range Interpretation Comments MAGNESIUM (BEAKER) (test code = 2.1 mg/dL 1.6-2.6 627) Oliving Machine Operator ID - DANITZA LPOCT-GLUCOSE [id number] 20:21:00 Test Item Value Reference Range Interpretation Comments POC-GLUCOSE METER 188 mg/dL 70-110 H : TESTED A T [facility] 6720 (BEAKER) (test code = [place], 1538) 47512: Oliving Machine Operator/Techni estefani ID = [id number] for Ch andnadege Nikki POCT-GLUCOSE [id number] 16:41:00 Test Item Value Reference Range Interpretation Comments POC-GLUCOSE METER 110 mg/dL 70-110 : TESTED A T [facility] 6720 (BEAKER) (test code [facility], = 1538) 50530: Oliving Machine Operator/Techni estefani ID = [id number] for WILS ON, JORGESTANIE POCT-GLUCOSE [id number] 12:03:00 Test Item Value Reference Range Interpretation Comments POC-GLUCOSE METER 82 mg/dL 70-110 : TESTED A T [facility] 6720 (BEAKER) (test code = [facility], 1538) 29519: Oliving Machine Operator/Techni estefani ID = [id number] for WILS ON, SHASTANIE POCT-GLUCOSE [id number] 07:12:00 Test Item Value Reference Range Interpretation Comments POC-GLUCOSE METER 86 mg/dL 70-110 : TESTED A T [facility] 6720 (BEAKER) (test code = [facility], 1538) 29802: Oliving Machine Operator/Techni estefani ID = [id number] for WILS ON, SHASTANIE BASIC METABOLIC [id number] 05:40:00 Test Item Value Reference Range Interpretation [...] S NOT APPLICABLE FOR DIALYSIS PATIEN TS. [id number] 05:38:00 Test Item Value Reference Range Interpretation Comments MAGNESIUM (BEAKER) (test code = 2.0 mg/dL 1.6-2.6 627) CBC W/PLT COUNT & AUTO [id number] 05:07:00 Test Item Value Reference Range Interpretation [...] PERCENT (BEAKER) (test code = 2801) POCT-GLUCOSE [id number] 20:33:00 Test Item Value Reference Range Interpretation Comments POC-GLUCOSE METER 218 mg/dL 70-110 H : TESTED A T [facility] 6720 (BEAKER) (test code = [facility], 1538) 28801: Oliving Machine Operator/Techni estefani ID = [id number] for PHIL MURRELL TTRohit POCT-GLUCOSE [id number] 17:47:00 Test Item Value Reference Range Interpretation Comments POC-GLUCOSE METER 122 mg/dL 70-110 H : TESTED A T [facility] 6720 (BEAKER) (test code [facility], = 1538) 97068: Oliving Machine Operator/Techni estefani ID = [id number] for WILS ON, SHASTANIE POCT-GLUCOSE [id number] 11:53:00 Test Item Value Reference Range Interpretation Comments POC-GLUCOSE METER 93 mg/dL 70-110 : TESTED A T [facility] 6720 (BEAKER) (test code = [facility], 1538) 88875: Oliving Machine Operator/Techni estefani ID = [id number] for WILS ON, SHASTANIE POCT-GLUCOSE [id number] 08:26:00 Test Item Value Reference Range Interpretation Comments POC-GLUCOSE METER 93 mg/dL 70-110 : TESTED A T [facility] 6720 (BEAKER) (test code = [facility], 1538) 68283: Oliving Machine Operator/Techni estefani ID = [id number] for WILS ON, SHASTANIE BASIC METABOLIC [id number] 04:43:00 Test Item Value Reference Range Interpretation [...] S NOT APPLICABLE FOR DIALYSIS PATIEN TS. Oliving Machine Operator ID - [id number] 04:33:00 Test Item Value Reference Range Interpretation Comments MAGNESIUM (BEAKER) (test code = 2.1 mg/dL 1.6-2.6 627) Oliving Machine Operator ID - EDASICBC W/PLT COUNT & AUTO [id number] 04:11:00 Test Item Value Reference Range Interpretation [...] PERCENT (BEAKER) (test code = 2801) POCT-GLUCOSE [id number] 21:01:00 Test Item Value Reference Range Interpretation Comments POC-GLUCOSE METER 159 mg/dL 70-110 H : TESTED A T [facility] 6720 (BEAKER) (test code = [facility]) [address]2061: Oliving Machine Operator/Techni estefani ID = [id number] for Alexia Vivas POCT-GLUCOSE [id number] 17:01:00 Test Item Value Reference Range Interpretation Comments POC-GLUCOSE METER 149 mg/dL 70-110 H : TESTED A T [facility] 6720 (BEAKER) (test code = [facility], 153) 28131: Oliving Machine Operator/Techni estefani ID = [id number] for IAIN EASTON POCT-GLUCOSE [id number] 12:36:00 Test Item Value Reference Range Interpretation Comments POC-GLUCOSE METER 127 mg/dL 70-110 H : TESTED A T [facility] 6720 (BEAKER) (test code = [facility], 153) 28505: Oliving Machine Operator/Techni estefani ID = [id number] for ANGEL HILLS POCT-GLUCOSE [id number] 08:18:00 Test Item Value Reference Range Interpretation Comments POC-GLUCOSE METER 75 mg/dL 70-110 : TESTED A T [facility] 6720 (BEAKER) (test code = [place], 1538) 50[address]: Oliving Machine Operator/Techni estefani ID = [id number] for IAIN DEXTER HEMOGLOBIN [id number] 08:08:00 Test Item Value Reference Range Interpretation Comments HEMOGLOBIN A1C (BEAKER) (test code = 5.9 % 4.3-6.1 368) BASIC METABOLIC [id number] 06:38:00 Test Item Value Reference Range Interpretation [...] S NOT APPLICABLE FOR DIALYSIS PATIEN TS. Oliving Machine Operator ID - JAQUELINE [id number] 06:32:00 Test Item Value Reference Range Interpretation Comments MAGNESIUM (BEAKER) (test code = 2.0 mg/dL 1.6-2.6 627) Oliving Machine Operator ID - JAQUELINE MCBC W/PLT COUNT & AUTO [id number] 06:04:00 Test Item Value Reference Range Interpretation [...] PERCENT (BEAKER) (test code = 2801) SARS-COV2/RT-PCR ([facility])2019-12-13 05:48:00 Test Item Value Reference Range Interpretation Comments SARS-COV2/RT-PCR (test Negative Not Detected, Negative, code = 8569294) See external report for linked test SARS-COV-2 PERFORMING LAB [facility] KEELY (test code = 0876584) Negative result for this test determines that [...] justifying the authorization of the emergency use ofin vitro diagnostic tests for detection and/or diagnosis of COVID-19 is terminated under Section 564(b)(2) of the Act or the EUA is revoked under Section 564(g) of the Act.Fact Sheet for Healthcare Prov iders:https://www.[employer]base/sites/default/files/product/documents/Fact_Sheet_HC _Goqbhakie_Zetq_XEZV-NpE-5.pdfFact Sheet for Healthcare Patients:https://www.[employer]/sites/default/files/product/docume nts/Tfsf_Titpm_Rxqxdxvz_Ugmr_DGHF-ZaH-9.pdfPerforming Laboratory:[facility], [place] [address]RQFD-AIYHZJP METER 2019-12-12 20:52:00 Test Item Value Reference Range Interpretation Comments POC-GLUCOSE METER 123 mg/dL 70-110 H : TESTED A T [facility] 6720 (BEAKER) (test code = [facility], 153) 65095: Oliving Machine Operator/Techni estefani ID = [id number] for Alexia Vivas POCT-GLUCOSE [id number] 16:14:00 Test Item Value Reference Range Interpretation Comments POC-GLUCOSE METER 175 mg/dL 70-110 H : TESTED A T [facility] 6720 (BEAKER) (test code = [facility], 153) 83615: Oliving Machine Operator/Techni estefani ID = [id number] for IAIN EASTON POCT-GLUCOSE [id number] 13:41:00 Test Item Value Reference Range Interpretation Comments POC-GLUCOSE METER 145 mg/dL 70-110 H : TESTED A T [facility] 6720 (BEAKER) (test code = [facility], 153) 00377: Oliving Machine Operator/Techni estefani ID = [id number] for BLADIMIR MELISSA VANCOMYCIN LEVEL, [id number] 05:00:00 Test Item Value Reference Range Interpretation Comments VANCOMYCIN RANDOM (BEAKER) (test 17.3 ug/mL code = 523) Reference Range: No NormalsOperator ID - JAQUELINE MSPIN/CONCENTRATION CHARGE 2019-12-12 04:16:00 Test Item Value Reference Range Interpretation Comments CONCENTRATION CHARGED (BEAKER) (test Done code = 2657) POCT-GLUCOSE [id number] 20:36:00 Test Item Value Reference Range Interpretation Comments POC-GLUCOSE METER 80 mg/dL 70-110 : TESTED A T [facility] 6720 (BEAKER) (test code = [facility], 153) 78836: Oliving Machine Operator/Techni estefani ID = [id number] for ELIZABETH DUENAS POCT-GLUCOSE [id number] 16:43:00 Test Item Value Reference Range Interpretation Comments POC-GLUCOSE METER 88 mg/dL 70-110 : TESTED A T [facility] 6720 (BEAKER) (test code = [facility], 153) 58606: Oliving Machine Operator/Techni estefani ID = [id number] for KRYSTAL KNOX POCT-GLUCOSE [id number] 14:06:00 Test Item Value Reference Range Interpretation Comments POC-GLUCOSE METER 78 mg/dL 70-110 : TESTED A T [facility] 6720 (BEAKER) (test code = [place], 1538) [address]: Oliving Machine Operator/Techni estefani ID = [id number] for KRYSTAL KNOX POCT-GLUCOSE [id number] 11:19:00 Test Item Value Reference Range Interpretation Comments POC-GLUCOSE METER 93 mg/dL 70-110 : TESTED A T [facility] 6720 (BEAKER) (test code = [facility] [place], 1538) 298[address]: Oliving Machine Operator/Techni estefani ID = [id number] for ROSE CHAVEZ BASIC METABOLIC [id number] 04:38:00 Test Item Value Reference Range Interpretation [...] S NOT APPLICABLE FOR DIALYSIS PATIEN TS. Oliving Machine Operator ID - EDASICBC W/PLT COUNT & AUTO [id number] 04:14:00 Test Item Value Reference Range Interpretation [...] PERCENT (BEAKER) (test code = 2801) BLOOD [id number] 02:00:00 Test Item Value Reference Range Interpretation Comments CULTURE (BEAKER) (test No growth in 5 days code = 1095) POCT-GLUCOSE [id number] 20:48:00 Test Item Value Reference Range Interpretation Comments POC-GLUCOSE METER 192 mg/dL 70-110 H : Notified RN/MD: (BEAKER) (test code = TESTED AT [facility] 6720 153) [facility], [address]: Oliving Machine Operator/Techni estefani ID = [id number] for ELMIRA LOPEZ POCT-GLUCOSE [id number] 17:27:00 Test Item Value Reference Range Interpretation Comments POC-GLUCOSE METER 96 mg/dL 70-110 : TESTED A T [facility] 67[address] ([facility]) (test code = [facility], 153) [address]: Oliving Machine Operator/Techni estefani ID = [id number] for WILS ON, SHASTANIE POCT-GLUCOSE [id number] 16:31:00 Test Item Value Reference Range Interpretation Comments POC-GLUCOSE METER 91 mg/dL 70-110 : TESTED A T [facility] 67[facility] ([facility]) (test code = [facility], 153) [address]: Oliving Machine Operator/Techni estefani ID = [id number] for JUAN Z, EVONNE VIAL POCT-GLUCOSE [id number] 11:42:00 Test Item Value Reference Range Interpretation Comments POC-GLUCOSE METER 91 mg/dL 70-110 : TESTED A T [facility] 6720 (BEAKER) (test code = [facility], 153) [id number]: Oliving Machine Operator/Techni estefani ID = [id number] for WILS ON, SHASTANIE POCT-GLUCOSE [id number] 08:18:00 Test Item Value Reference Range Interpretation Comments POC-GLUCOSE METER 95 mg/dL 70-110 : TESTED A T [facility] ([facility]) (test code = [facility], 153) 18599: Oliving Machine Operator/Techni estefani ID = [id number] for WILS ON, SHASTANIE POCT-GLUCOSE [id number] 21:34:00 Test Item Value Reference Range Interpretation Comments POC-GLUCOSE METER 135 mg/dL 70-110 H : TESTED A T [facility] 6720 (BEAKER) (test code = [facility], 153) 45219: Oliving Machine Operator/Techni estefani ID = [id number] for PHIL MURRELL TTE POCT-GLUCOSE [id number] 16:56:00 Test Item Value Reference Range Interpretation Comments POC-GLUCOSE METER 140 mg/dL 70-110 H : TESTED A T [facility] 6720 (BEAKER) (test code = [facility], 153) 91805: Oliving Machine Operator/Techni estefani ID = [id number] for AGUSTÍN GUTIERREZ, IAIN POCT-GLUCOSE [id number] 11:38:00 Test Item Value Reference Range Interpretation Comments POC-GLUCOSE METER 126 mg/dL 70-110 H : TESTED A T [facility] 6720 (BEAKER) (test code = [facility], 1538) 58796: Oliving Machine Operator/Techni estefani ID = [id number] for AGUSTÍN GUTIERREZ, IAIN POCT-GLUCOSE [id number] 07:31:00 Test Item Value Reference Range Interpretation Comments POC-GLUCOSE METER 63 mg/dL 70-110 L : TESTED A T [facility] 6720 (BEAKER) (test code = [facility], 153) 29257: Oliving Machine Operator/Techni estefani ID = [id number] for BREA NE, IAIN POCT-GLUCOSE [id number] 21:32:00 Test Item Value Reference Range Interpretation Comments POC-GLUCOSE METER 144 mg/dL 70-110 H : TESTED A T [facility] 6720 (BEAKER) (test code = [facility], 153) 62726: Oliving Machine Operator/Techni estefani ID = [id number] for MURRELL, PHIL TTE POCT-GLUCOSE [id number] 17:06:00 Test Item Value Reference Range Interpretation Comments POC-GLUCOSE METER 95 mg/dL 70-110 : TESTED A T [facility] 6720 (BEAKER) (test code = [facility], 1538) 53153: Oliving Machine Operator/Techni estefani ID = [id number] for BREA NE, IAIN POCT-GLUCOSE [id number] 12:40:00 Test Item Value Reference Range Interpretation Comments POC-GLUCOSE METER 153 mg/dL 70-110 H : TESTED A T [facility] 6720 (BEAKER) (test code = [facility], 153) 16735: Oliving Machine Operator/Techni estefani ID = [id number] for AGUSTÍN GUTIERREZ, IAIN POCT-GLUCOSE [id number] 07:26:00 Test Item Value Reference Range Interpretation Comments POC-GLUCOSE METER 103 mg/dL 70-110 : TESTED A T [facility] 6720 (BEAKER) (test code = [facility], 1538) 86290: Oliving Machine Operator/Techni estefani ID = [id number] for IAIN EASTON BASIC METABOLIC [id number] 05:34:00 Test Item Value Reference Range Interpretation [...] S NOT APPLICABLE FOR DIALYSIS PATIEN TS. Oliving Machine Operator ID - PIAYA LCBC W/PLT COUNT & AUTO [id number] 04:04:00 Test Item Value Reference Range Interpretation [...] PERCENT (BEAKER) (test code = 2801) POCT-GLUCOSE [id number] 21:37:00 Test Item Value Reference Range Interpretation Comments POC-GLUCOSE METER 251 mg/dL 70-110 H : TESTED A T [facility] 6720 (BEAKER) (test code = [facility], 1538) 74893: Oliving Machine Operator/Techni estefani ID = [id number] for PHIL MURRELL TTRohit POCT-GLUCOSE [id number] 17:54:00 Test Item Value Reference Range Interpretation Comments POC-GLUCOSE METER 108 mg/dL 70-110 : TESTED A T [facility] 6720 (BEAKER) (test code = [facility], 1538) 97464: Oliving Machine Operator/Techni estefani ID = [id number] for Avery Levy POCT-GLUCOSE [id number] 11:57:00 Test Item Value Reference Range Interpretation Comments POC-GLUCOSE METER 85 mg/dL 70-110 : TESTED A T [facility] 6720 (BEAKER) ([facility], 1538) 21127: Oliving Machine Operator/Techni estefani ID = [id number] for IAIN DEXTER POCT-GLUCOSE [id number] 08:11:00 Test Item Value Reference Range Interpretation Comments POC-GLUCOSE METER 66 mg/dL 70-110 L : TESTED A T [facility] 6720 (BEAKER) (test code = [facility], 1538) 56235: Oliving Machine Operator/Techni estefani ID = [id number] for IAIN DEXTER FUNGUS CULTURE + [id number] 15:59:00 Test Item Value Reference Range Interpretation Comments CULTURE (BEAKER) (test No fungus isolated in code = 1095) 28 days FUNGUS SMEAR (BEAKER) No fungi seen (test code = 1406) POCT-GLUCOSE [id number] 15:44:00 Test Item Value Reference Range Interpretation Comments POC-GLUCOSE METER 97 mg/dL 70-110 : TESTED A T [facility] 6720 (BEAKER) (test code = [facility], 1538) 77719: Oliving Machine Operator/Techni estefani ID = [id number] for QUEEN SWANSON POCT-GLUCOSE [id number] 10:44:00 Test Item Value Reference Range Interpretation Comments POC-GLUCOSE METER 71 mg/dL 70-110 : TESTED A T [facility] 6720 (BEAKER) (test code = [facility], 1538) 63850: Oliving Machine Operator/Techni estefani ID = [id number] for QUEEN SWANSON SARS-COV2/RT-PCR ([facility])2019-12-06 08:14:00 Test Item Value Reference Range Interpretation Comments SARS-COV2/RT-PCR (test Negative Not Detected, Negative, code = 1773096) See external report for linked test SARS-COV-2 PERFORMING LAB [facility] (test code = 7566490) Negative result for this test determines that [...] justifying the authorization of the emergency use ofin vitro diagnostic tests for detection and/or diagnosis of COVID-19 is terminated under Section 564(b)(2) of the Act or the EUA is revoked under Section 564(g) of the Act.Fact Sheet for Healthcare Prov iders:https://www.[employer]/sites/default/files/product/documents/Fact_Sheet_HC _Jpixeffzo_Cxtq_OPRH-YaA-7.pdfFact Sheet for Healthcare Patients:https://www.[employer]/sites/default/files/product/docume nts/Tdui_Csedo_Qdjvbemo_Jsfl_ICJE-TuF-0.pdfPerforming Laboratory:[facility], [place] [address]UGUY-VTSEKTO METER 2019-12-06 08:03:00 Test Item Value Reference Range Interpretation Comments POC-GLUCOSE METER 68 mg/dL 70-110 L : TESTED A T [facility] 6720 (NOE) (test code = [facility], 1538) 08861: Oliving Machine Operator/Techni estefani ID = [id number] for QUEEN SWANSON BASIC METABOLIC [id number] 07:45:00 Test Item Value Reference Range Interpretation [...] S NOT APPLICABLE FOR DIALYSIS PATIEN TS. Oliving Machine Operator ID - [id number] 07:30:00 Test Item Value Reference Range Interpretation Comments PHOSPHORUS (BEAKER) (test code = 4.8 mg/dL 2.3-4.7 H 604) Oliving Machine Operator ID - [id number] 07:30:00 Test Item Value Reference Range Interpretation Comments MAGNESIUM (BEAKER) (test code = 2.4 mg/dL 1.6-2.6 627) Oliving Machine Operator ID - EDASICBC W/PLT COUNT & AUTO [id number] 07:19:00 Test Item Value Reference Range Interpretation [...] PERCENT (BEAKER) (test code = 2801) PROTHROMBIN [id number] 06:53:00 Test Item Value Reference Range Interpretation [...] is 2.5-3.5 for patients wiht mechanical heart valves.POCT-GLUCOSE [id number] 21:16:00 Test Item Value Reference Range Interpretation Comments POC-GLUCOSE METER 257 mg/dL 70-110 H : TESTED A T [facility] 6720 (BEAKER) (test code = [facility], 153) 88130: Oliving Machine Operator/Techni estefani ID = [id number] for MURRELL, PHIL TTE POCT-GLUCOSE [id number] 21:21:00 Test Item Value Reference Range Interpretation Comments POC-GLUCOSE METER 247 mg/dL 70-110 H : TESTED A T [facility] 6720 (BEAKER) (test code = [facility], 1538) 71365: Oliving Machine Operator/Techni estefani ID = [id number] for SA HIGGINS, CRYSTAL POCT-GLUCOSE [id number] 12:32:00 Test Item Value Reference Range Interpretation Comments POC-GLUCOSE METER 95 mg/dL 70-110 : TESTED A T [facility] 6720 (BEAKER) (test code = [facility], 153) 81555: Oliving Machine Operator/Techni estefani ID = [id number] for QUANG OS, JACOB POCT-GLUCOSE [id number] 08:26:00 Test Item Value Reference Range Interpretation Comments POC-GLUCOSE METER 98 mg/dL 70-110 : TESTED A T [facility] 6720 (BEAKER) (test code = [facility], 1538) 39434: Oliving Machine Operator/Techni estefani ID = [id number] for QUANG OS, JACOB POCT-GLUCOSE [id number] 21:54:00 Test Item Value Reference Range Interpretation Comments POC-GLUCOSE METER 153 mg/dL 70-110 H : TESTED A T [facility] 6720 (BEAKER) (test code = [facility], 1538) 23867: Oliving Machine Operator/Techni estefani ID = [id number] for UL LATTIL, SJ POCT-GLUCOSE [id number] 17:04:00 Test Item Value Reference Range Interpretation Comments POC-GLUCOSE METER 194 mg/dL 70-110 H : TESTED A T [facility] 6720 (BEAKER) (test code = [facility], 1538) 24446: Oliving Machine Operator/Techni estefani ID = [id number] for HIGGINS BLET, JANIE POCT-GLUCOSE [id number] 12:29:00 Test Item Value Reference Range Interpretation Comments POC-GLUCOSE METER 162 mg/dL 70-110 H : TESTED A T [facility] 6720 (BEAKER) (test code = [facility], [facility]8) 75304: Oliving Machine Operator/Techni estefani ID = [id number] for HIGGINS BLET, JANIE POCT-GLUCOSE [id number] 09:42:00 Test Item Value Reference Range Interpretation Comments POC-GLUCOSE METER 178 mg/dL 70-110 H : TESTED A T [facility] 6720 (BEAKER) (test code = [facility], [facility]8) 85439: Oliving Machine Operator/Techni estefani ID = [id number] for NG JOSE, TYRONE POCT-GLUCOSE [id number] 07:19:00 Test Item Value Reference Range Interpretation Comments POC-GLUCOSE METER 115 mg/dL 70-110 H : TESTED A T [facility] 6720 (BEAKER) (test code = [facility], [facility]8) 97978: Oliving Machine Operator/Techni estefani ID = [id number] for UL LATTIL, SJ CREATINE KINASE (CK)2019-11-29 06:25:00 Test Item Value Reference Range Interpretation Comments CREATINE KINASE TOTAL (BEAKER) (test 249 U/L 29-200 H code = 380) Oliving Machine Operator ID - JAQUELINE MPOCT-GLUCOSE [id number] 21:03:00 Test Item Value Reference Range Interpretation Comments POC-GLUCOSE METER 157 mg/dL 70-110 H : TESTED A T [facility] 6720 (BEAKER) (test code = [facility], 1538) 57477: Oliving Machine Operator/Techni estefani ID = [id number] for UL LATTIL, SJ POCT-GLUCOSE [id number] 18:26:00 Test Item Value Reference Range Interpretation Comments POC-GLUCOSE METER 136 mg/dL 70-110 H : TESTED A T [facility] 6720 (BEAKER) (test code = [facility], [facility]) 01310: Oliving Machine Operator/Techni estefani ID = [id number] for NG JOSE, TYRONE POCT-GLUCOSE [id number] 11:59:00 Test Item Value Reference Range Interpretation Comments POC-GLUCOSE METER 160 mg/dL 70-110 H : TESTED A T [facility] 6720 (BEAKER) (test code = [facility] [place], 1538) 47617: Oliving Machine Operator/Techni estefani ID = [id number] for GUNNER PANDYA POCT-GLUCOSE [id number] 08:00:00 Test Item Value Reference Range Interpretation Comments POC-GLUCOSE METER 89 mg/dL 70-110 : TESTED A T [facility] 6720 (BEAKER) (test code = [facility], 1538) 87067: Oliving Machine Operator/Techni estefani ID = [id number] for GUNNER MUHAMMAD BASIC METABOLIC [id number] 04:43:00 Test Item Value Reference Range Interpretation [...] S NOT APPLICABLE FOR DIALYSIS PATIEN TS. Oliving Machine Operator ID - BSCBC W/PLT COUNT & AUTO [id number] 04:35:00 Test Item Value Reference Range Interpretation [...] PERCENT (BEAKER) (test code = 2801) POCT-GLUCOSE [id number] 21:07:00 Test Item Value Reference Range Interpretation Comments POC-GLUCOSE METER 146 mg/dL 70-110 H : TESTED A T [facility] 6720 (BEAKER) (test code = [facility] [place], 1538) 93409: Oliving Machine Operator/Techni estefani ID = [id number] for JAD SALGUERO POCT-GLUCOSE [id number] 17:47:00 Test Item Value Reference Range Interpretation Comments POC-GLUCOSE METER 138 mg/dL 70-110 H : TESTED A T [facility] 6720 (BEAKER) (test code = [facility], 1538) 91321: Oliving Machine Operator/Techni estefani ID = [id number] for JACOB LYLES POCT-GLUCOSE [id number] 12:12:00 Test Item Value Reference Range Interpretation Comments POC-GLUCOSE METER 157 mg/dL 70-110 H : TESTED A T [facility] 6720 (BEAKER) (test code = [facility], 1538) 18219: Oliving Machine Operator/Techni estefani ID = [id number] for JACOB LYLES POCT-GLUCOSE [id number] 09:04:00 Test Item Value Reference Range Interpretation Comments POC-GLUCOSE METER 142 mg/dL 70-110 H : TESTED A T [facility] 6720 (BEAKER) (test code = [facility], 1538) 00446: Oliving Machine Operator/Techni estefani ID = [id number] for JACOB LYLES BASIC METABOLIC [id number] 05:51:00 Test Item Value Reference Range Interpretation [...] S NOT APPLICABLE FOR DIALYSIS PATIEN TS. Oliving Machine Operator ID - BSCBC W/PLT COUNT & AUTO [id number] 05:17:00 Test Item Value Reference Range Interpretation [...] PERCENT (BEAKER) (test code = 2801) POCT-GLUCOSE [id number] 21:20:00 Test Item Value Reference Range Interpretation Comments POC-GLUCOSE METER 136 mg/dL 70-110 H : TESTED A T [facility] 6720 (BEAKER) (test code = [facility], 153) 39748: Oliving Machine Operator/Techni estefani ID = [id number] for SA HIGGINS, CRYSTAL POCT-GLUCOSE [id number] 17:34:00 Test Item Value Reference Range Interpretation Comments POC-GLUCOSE METER 205 mg/dL 70-110 H : TESTED A T [facility] 6720 (BEAKER) (test code = [facility], 153) 43830: Oliving Machine Operator/Techni estefani ID = [id number] for SA NTTONYA, JACOB POCT-GLUCOSE [id number] 11:22:00 Test Item Value Reference Range Interpretation Comments POC-GLUCOSE METER 98 mg/dL 70-110 : TESTED A T [facility] 6720 (BEAKER) (test code = [facility], 1538) 69098: Oliving Machine Operator/Techni estefani ID = [id number] for Mike Mendozain POCT-GLUCOSE [id number] 08:07:00 Test Item Value Reference Range Interpretation Comments POC-GLUCOSE METER 117 mg/dL 70-110 H : TESTED A T [facility] 6720 (BEAKER) (test code = [facility], 153) 69310: Oliving Machine Operator/Techni estefani ID = [id number] for HIGGINS JANIE ZAVALA CBC W/PLT COUNT & AUTO [id number] 05:21:00 Test Item Value Reference Range Interpretation [...] (BEAKER) (test code = 2801) BASIC METABOLIC [id number] 05:17:00 Test Item Value Reference Range Interpretation [...] S NOT APPLICABLE FOR DIALYSIS PATIEN TS. Oliving Machine Operator ID - DBPOCT-GLUCOSE [id number] 21:45:00 Test Item Value Reference Range Interpretation Comments POC-GLUCOSE METER 144 mg/dL 70-110 H : TESTED A T [facility] 6720 ([employer]) (test code = [facility], [facility]) 35725: Oliving Machine Operator/Techni estefani ID = [id number] for UL LATTIL, SJ POCT-GLUCOSE [id number] 17:16:00 Test Item Value Reference Range Interpretation Comments POC-GLUCOSE METER 134 mg/dL 70-110 H : TESTED A T [facility] 6720 ([employer]) (test code = [facility], 1538) 59558: Oliving Machine Operator/Techni estefani ID = [id number] for FA ITH, GUNNER POCT-GLUCOSE [id number] 12:00:00 Test Item Value Reference Range Interpretation Comments POC-GLUCOSE METER 120 mg/dL 70-110 H : TESTED A T [facility] 6720 ([employer]) (test code = [facility], 1538) 12666: Oliving Machine Operator/Techni estefani ID = [id number] for FA ITH, GUNNER POCT-GLUCOSE [id number] 08:04:00 Test Item Value Reference Range Interpretation Comments POC-GLUCOSE METER 74 mg/dL 70-110 : TESTED A T [facility] 6720 ([employer]) (test code = [facility], 1538) 88422: Oliving Machine Operator/Techni estefani ID = [id number] for FAIT H, GUNNER POCT-GLUCOSE [id number] 21:31:00 Test Item Value Reference Range Interpretation Comments POC-GLUCOSE METER 155 mg/dL 70-110 H : TESTED A T [facility] 6720 (BEAKER) (test code = [facility], [facility]) 23676: Oliving Machine Operator/Techni estefani ID = [id number] for UL LATTIL, SJ POCT-GLUCOSE [id number] 17:03:00 Test Item Value Reference Range Interpretation Comments POC-GLUCOSE METER 127 mg/dL 70-110 H : TESTED A T [facility] 6720 (BEAKER) (test code = [facility], [facility]) 87341: Oliving Machine Operator/Techni estefani ID = [id number] for FA ITH, GUNNER POCT-GLUCOSE [id number] 12:28:00 Test Item Value Reference Range Interpretation Comments POC-GLUCOSE METER 147 mg/dL 70-110 H : TESTED A T [facility] 6720 (BEAKER) (test code = [facility], [facility]) 13163: Oliving Machine Operator/Techni estefani ID = [id number] for FA ITH, GUNNER POCT-GLUCOSE [id number] 08:06:00 Test Item Value Reference Range Interpretation Comments POC-GLUCOSE METER 107 mg/dL 70-110 : TESTED A T [facility] 6720 (BEAKER) (test code = [facility], [facility]) 41320: Oliving Machine Operator/Techni estefani ID = [id number] for FA ITH, GUNNER POCT-GLUCOSE [id number] 21:07:00 Test Item Value Reference Range Interpretation Comments POC-GLUCOSE METER 179 mg/dL 70-110 H : TESTED A T [facility] 6720 (BEAKER) (test code = [facility], [facility]) 55965: Oliving Machine Operator/Techni estefani ID = [id number] for UL LATTIL, SJ POCT-GLUCOSE [id number] 17:04:00 Test Item Value Reference Range Interpretation Comments POC-GLUCOSE METER 201 mg/dL 70-110 H : TESTED A T [facility] 6720 (BEAKER) (test code = [facility], [facility]) 22829: Oliving Machine Operator/Techni estefani ID = [id number] for FA ITH, GUNNER POCT-GLUCOSE [id number] 12:29:00 Test Item Value Reference Range Interpretation Comments POC-GLUCOSE METER 110 mg/dL 70-110 : TESTED A T [facility] 6720 (NOE) (test code = [facility] [place], 1538) 98672: Oliving Machine Operator/Techni esetfani ID = [id number] for Avery Levy SARS-COV2/RT-PCR ([facility])2019-11-23 11:35:00 Test Item Value Reference Range Interpretation Comments SARS-COV2/RT-PCR (test Negative Not Detected, Negative, code = 7132873) See external report for linked test SARS-COV-2 PERFORMING LAB [facility] KEELY (test code = 0366390) Negative result for this test determines that [...] justifying the authorization of the emergency use ofin vitro diagnostic tests for detection and/or diagnosis of COVID-19 is terminated under Section 564(b)(2) of the Act or the EUA is revoked under Section 564(g) of the Act.Fact Sheet for Healthcare Prov iders:https://www.[employer].com/sites/default/files/product/documents/Fact_Sheet_HC _Zedpgujkl_Czva_HSGN-CbM-7.pdfFact Sheet for Healthcare Patients:https://www.[employer]/sites/default/files/product/docume nts/Cknu_Xxugm_Hmvxjjfk_Ftgz_RMCB-OeY-2.pdfPerforming Laboratory:[facility], [place] [address]AYFG-DDOLCUC METER 2019-11-23 08:05:00 Test Item Value Reference Range Interpretation Comments POC-GLUCOSE METER 92 mg/dL 70-110 : TESTED A T [facility] 6720 (BEAKER) (test code = [facility], 1538) 27811: Oliving Machine Operator/Techni estefani ID = [id number] for GUNNER MUHAMMAD POCT-GLUCOSE [id number] 21:46:00 Test Item Value Reference Range Interpretation Comments POC-GLUCOSE METER 145 mg/dL 70-110 H : TESTED A T [facility] 6720 (BEAKER) (test code = [facility], 1538) 39488: Oliving Machine Operator/Techni estefani ID = [id number] for CA RBAJAL, TIMA POCT-GLUCOSE [id number] 17:51:00 Test Item Value Reference Range Interpretation Comments POC-GLUCOSE METER 180 mg/dL 70-110 H : TESTED A T [facility] 6720 (BEAKER) (test code = [facility], 1538) 39522: Oliving Machine Operator/Techni estefani ID = [id number] for SA NTOS, JACOB POCT-GLUCOSE [id number] 11:57:00 Test Item Value Reference Range Interpretation Comments POC-GLUCOSE METER 151 mg/dL 70-110 H : TESTED A T [facility] 6720 (BEAKER) (test code = [facility], 1538) 99245: Oliving Machine Operator/Techni estefnai ID = [id number] for SA NTOS, JACOB POCT-GLUCOSE [id number] 08:07:00 Test Item Value Reference Range Interpretation Comments POC-GLUCOSE METER 110 mg/dL 70-110 : TESTED A T [facility] 6720 (BEAKER) (test code = [facility], 1538) 90044: Oliving Machine Operator/Techni estefani ID = [id number] for SA NTOS, JACOB CREATINE KINASE (CK)2019-11-22 05:38:00 Test Item Value Reference Range Interpretation Comments CREATINE KINASE TOTAL (BEAKER) (test 57 U/L 29-200 code = 380) Oliving Machine Operator ID - DANITZA LPOCT-GLUCOSE [id number] 21:49:00 Test Item Value Reference Range Interpretation Comments POC-GLUCOSE METER 171 mg/dL 70-110 H : TESTED A T [facility] 6720 (BEAKER) (test code = [facility], 1538) 90159: Oliving Machine Operator/Techni estefani ID = [id number] for CA RBAJAL, TIMA ANAEROBIC [id number] 18:36:00 Test Item Value Reference Range Interpretation Comments CULTURE (BEAKER) (test No anaerobes isolated code = 1095) HEPATITIS B SURFACE [id number] 17:43:00 Test Item Value Reference Range Interpretation Comments HEPATITIS B SURFACE ANTIGEN (2) Nonreactive Nonreactive (AKER) (test code = 2585) Specimen is considered negative for HBsAg.POCT-GLUCOSE [id number] 12:07:00 Test Item Value Reference Range Interpretation Comments POC-GLUCOSE METER 106 mg/dL 70-110 : TESTED A T [facility] 6720 (BEAKER) (test code = [facility], 1538) 33547: Oliving Machine Operator/Techni estefani ID = [id number] for SA NTOS, JACOB POCT-GLUCOSE [id number] 08:05:00 Test Item Value Reference Range Interpretation Comments POC-GLUCOSE METER 113 mg/dL 70-110 H : TESTED A T [facility] 6720 (BEAKER) (test code = [facility], 1538) 85561: Oliving Machine Operator/Techni estefani ID = [id number] for SA NTOS, JACOB POCT-GLUCOSE [id number] 22:58:00 Test Item Value Reference Range Interpretation Comments POC-GLUCOSE METER 201 mg/dL 70-110 H : TESTED A T [facility] 6720 (BEAKER) (test code = [facility], 1538) [id number]: Oliving Machine Operator/Techni estefani ID = [id number] for UL LATTIL, SJ POCT-GLUCOSE [id number] 17:14:00 Test Item Value Reference Range Interpretation Comments POC-GLUCOSE METER 128 mg/dL 70-110 H : TESTED A T [facility] 6720 (BEAKER) (test code = [facility], 153) 63221: Oliving Machine Operator/Techni estefani ID = [id number] for FA TY GUNNER POCT-GLUCOSE [id number] 12:17:00 Test Item Value Reference Range Interpretation Comments POC-GLUCOSE METER 171 mg/dL 70-110 H : TESTED A T [facility] 6720 (BEAKER) (test code = [facility], 1538) [id number]: Oliving Machine Operator/Techni estefani ID = [id number] for FA TY GUNNER POCT-GLUCOSE [id number] 23:29:00 Test Item Value Reference Range Interpretation Comments POC-GLUCOSE METER 210 mg/dL 70-110 H : TESTED A T [facility] 6720 (BEAKER) (test code = [facility], [facility]) 19774: Oliving Machine Operator/Techni estefani ID = [id number] for ARUNA LATMARCELO, S[place] POCT-GLUCOSE [id number] 20:51:00 Test Item Value Reference Range Interpretation Comments POC-GLUCOSE METER 132 mg/dL 70-110 H : TESTED A T [facility] 6720 (BEAKER) (test code = [facility], [facility]) 30012: Oliving Machine Operator/Techni estefani ID = [id number] for ALTAGRACIA SQUIRES POCT-GLUCOSE [id number] 12:26:00 Test Item Value Reference Range Interpretation Comments POC-GLUCOSE METER 155 mg/dL 70-110 H : TESTED A T [facility] 6720 (BEAKER) (test code = [facility], 153) 41775: Oliving Machine Operator/Techni estefani ID = [id number] for FA TY GUNNER POCT-GLUCOSE [id number] 08:09:00 Test Item Value Reference Range Interpretation Comments POC-GLUCOSE METER 109 mg/dL 70-110 : TESTED A T [facility] 6720 (BEAKER) (test code = [facility], 153) 82049: Oliving Machine Operator/Techni estefani ID = [id number] for FA ITH, GUNNER BASIC METABOLIC [id number] 07:08:00 Test Item Value Reference Range Interpretation [...] S NOT APPLICABLE FOR DIALYSIS PATIEN TS. Oliving Machine Operator ID - PIAYA LCBC (HEMOGRAM ONLY)2019-11-19 04:19:00 [...] 0-0 (BEAKER) (test code = 413) POCT-GLUCOSE [id number] 21:23:00 Test Item Value Reference Range Interpretation Comments POC-GLUCOSE METER 182 mg/dL 70-110 H : TESTED A T [facility] 6720 (BEAKER) (test code = [facility], 1538) 05676: Oliving Machine Operator/Techni estefani ID = [id number] for CA TIMA SHETTY POCT-GLUCOSE [id number] 17:32:00 Test Item Value Reference Range Interpretation Comments POC-GLUCOSE METER 142 mg/dL 70-110 H : TESTED A T [facility] 6720 (BEAKER) (test code = [facility], 1538) 88751: Oliving Machine Operator/Techni estefani ID = [id number] for SA JACOB DE LEON POCT-GLUCOSE [id number] 13:24:00 Test Item Value Reference Range Interpretation Comments POC-GLUCOSE METER 164 mg/dL 70-110 H : TESTED A T [facility] 6720 (BEAKER) (test code = [facility], 1538) 26056: Oliving Machine Operator/Techni estefani ID = [id number] for SA JACOB DE LEON BASIC METABOLIC [id number] 12:57:00 Test Item Value Reference Range Interpretation [...] NOT APPLICABLE FOR DIALYSIS PATIEN TS. POCT-GLUCOSE [id number] 08:04:00 Test Item Value Reference Range Interpretation Comments POC-GLUCOSE METER 137 mg/dL 70-110 H : TESTED A T [facility] 6720 (BEAKER) ([facility] = [facility], 153) 74322: Oliving Machine Operator/Techni estefani ID = [id number] for JACOB LYLES CBC (HEMOGRAM ONLY)2019-11-18 06:36:00 [...] 0-0 (BEAKER) (test code = 413) POCT-GLUCOSE [id number] 22:05:00 Test Item Value Reference Range Interpretation Comments POC-GLUCOSE METER 123 mg/dL 70-110 H : TESTED A T [facility] 6720 (BEAKER) (test code = [facility], 153) 65006: Oliving Machine Operator/Techni estefani ID = [id number] for ABDIRAHMAN OSORIO POCT-GLUCOSE [id number] 17:52:00 Test Item Value Reference Range Interpretation Comments POC-GLUCOSE METER 111 mg/dL 70-110 H : TESTED A T [facility] 6720 (BEAKER) (test code = [facility], 1538) 98693: Oliving Machine Operator/Techni estefani ID = [id number] for JACOB LYLES BASIC METABOLIC [id number] 09:54:00 Test Item Value Reference Range Interpretation [...] S NOT APPLICABLE FOR DIALYSIS PATIEN TS. Oliving Machine Operator ID - JAQUELINE MPOCT-GLUCOSE [id number] 08:13:00 Test Item Value Reference Range Interpretation Comments POC-GLUCOSE METER 134 mg/dL 70-110 H : TESTED A T [facility] 6720 (BEAKER) (test code = [facility], 1538) 26687: Oliving Machine Operator/Techni estefani ID = [id number] for JACOB LYLES CBC (HEMOGRAM ONLY)2019-11-17 07:03:00 [...] 0-0 (BEAKER) (test code = 413) POCT-GLUCOSE [id number] 21:52:00 Test Item Value Reference Range Interpretation Comments POC-GLUCOSE METER 154 mg/dL 70-110 H : TESTED A T [facility] 6720 (BEAKER) (test code = [facility], 1538) 86187: Oliving Machine Operator/Techni estefani ID = [id number] for SA HIGGINSCRYSTAL POCT-GLUCOSE [id number] 17:47:00 Test Item Value Reference Range Interpretation Comments POC-GLUCOSE METER 179 mg/dL 70-110 H : TESTED A T [facility] 6720 (BEAKER) (test code = [facility], 1538) 41125: Oliving Machine Operator/Techni estefani ID = [id number] for SA JACOB DE LEON POCT-GLUCOSE [id number] 11:58:00 Test Item Value Reference Range Interpretation Comments POC-GLUCOSE METER 158 mg/dL 70-110 H : TESTED A T [facility] 6720 (BEAKER) (test code = [facility], 1538) 90297: Oliving Machine Operator/Techni estefani ID = [id number] for SA NTTONYA, JACOB BASIC METABOLIC [id number] 08:15:00 Test Item Value Reference Range Interpretation [...] S NOT APPLICABLE FOR DIALYSIS PATIEN TS. Oliving Machine Operator ID - ANTONY FPOCT-GLUCOSE [id number] 08:09:00 Test Item Value Reference Range Interpretation Comments POC-GLUCOSE METER 163 mg/dL 70-110 H : TESTED A T [facility] 6720 (BEAKER) (test code = [facility] [place], 1538) 47981: Oliving Machine Operator/Techni estefani ID = [id number] for JACOB LYLES CBC (HEMOGRAM ONLY)2019-11-16 07:04:00 [...] 0-0 (BEAKER) (test code = 413) POCT-GLUCOSE [id number] 21:05:00 Test Item Value Reference Range Interpretation Comments POC-GLUCOSE METER 199 mg/dL 70-110 H : TESTED A T [facility] 6720 (AKER) (test code = [facility], 153) 31559: Oliving Machine Operator/Techni estefani ID = [id number] for UL LATMARCELO, SJ POCT-GLUCOSE [id number] 17:09:00 Test Item Value Reference Range Interpretation Comments POC-GLUCOSE METER 129 mg/dL 70-110 H : TESTED A T [facility] 6720 (AKER) (test code = [facility], 153) 72679: Oliving Machine Operator/Techni estefani ID = [id number] for GUNNER PANDYA [id number] 16:14:00 Test Item Value Reference Range Interpretation Comments ACTIVATED CLOTTING TIME 202 sec : 74 -137 seconds, (BEAKER) (test code = Baseli ne: TESTED AT 441) [facility] [address] [facility], 770 30: Oliving Machine Operator/Techni estefani ID = [id number] for DAILY HOGUE POCT-GLUCOSE [id number] 15:08:00 Test Item Value Reference Range Interpretation Comments POC-GLUCOSE METER 126 mg/dL 70-110 H : TESTED A T [facility] 6720 ([facility]) (test code = [facility], 153) 34142: Oliving Machine Operator/Techni estefani ID = [id number] for FERNANDA YOUNGER POCT-GLUCOSE [id number] 14:35:00 Test Item Value Reference Range Interpretation Comments POC-GLUCOSE METER 137 mg/dL 70-110 H : TESTED A T [facility] 6720 (BEAKER) (test code = [facility], 153) 62083: Oliving Machine Operator/Techni estefani ID = [id number] for TYRONE VAZQUEZ (CELLAVISION MANUAL DIFF)2019-11-15 09:51:00 [...] CONCENTRATION Adequate (CELLAVISION)(BEAKER) (test code = 3438) Oliving Machine Operator ID - Daily OverholtUser comments: Slide comments:POCT-GLUCOSE METER 2019-11-15 08:08:00 Test Item Value Reference Range Interpretation Comments POC-GLUCOSE METER 128 mg/dL 70-110 H : TESTED A T [facility] 6720 (BEAKER) (test code = [facility], 1538) 28090: Oliving Machine Operator/Techni estefani ID = [id number] for GUNNER PANDYA BASIC METABOLIC [id number] 06:08:00 Test Item Value Reference Range Interpretation [...] S NOT APPLICABLE FOR DIALYSIS PATIEN TS. Oliving Machine Operator ID - EDASICREATINE KINASE (CK)2019-11-15 06:06:00 Test Item Value Reference Range Interpretation Comments CREATINE KINASE TOTAL (BEAKER) (test 46 U/L 29-200 code = 380) Oliving Machine Operator ID - [id number] 05:09:00 Test Item Value Reference Range Interpretation Comments PARTIAL THROMBOPLASTIN TIME 52.1 seconds 22.5-36.0 H (BEAKER) (test code = 760) PROTHROMBIN TIME/[id number] 05:08:00 Test Item Value Reference Range Interpretation [...] is 2.5-3.5 for patients wiht mechanical heart valves.CBC WITH [...] 0-0 (BEAKER) (test code = 413) POCT-GLUCOSE [id number] 21:29:00 Test Item Value Reference Range Interpretation Comments POC-GLUCOSE METER 189 mg/dL 70-110 H : TESTED A T [facility] 6720 (BEAKER) (test code = [facility], 1538) 12222: Oliving Machine Operator/Techni estefani ID = [id number] for SJ HERBERT POCT-GLUCOSE [id number] 17:22:00 Test Item Value Reference Range Interpretation Comments POC-GLUCOSE METER 208 mg/dL 70-110 H : TESTED A T [facility] 6720 (BEAKER) (test code = [facility], 1538) 41528: Oliving Machine Operator/Techni estefani ID = [id number] for SUREKHA OLIVER TISSUE [id number] 16:50:00Surgical Pathology Report Case: [id number] Authorizing Provider: Star Cloud DPM Collected: 11/08/2019 03:53 PM Ordering Location: [facility] Received: 11/09/2019 09:35 AM PERIOPERATIVE SERVICES Pathologist: Vandana Beverly MD Specimens: A) - Metatarsal, Right, 1ST B) - Metatarsal,Right, 5TH C) - Tendon/Tendon Sheath, FROM RIGHT [...] FOR MALIGNANCY Signing Pathologist Direct Phone Line: [phone] signed by Vandana Beverly MD on 11/14/2019 at 4:50 [id number] X 4 ;[id number] X 2Non-healing surgical wound, initial encounter A. Metatarsal, right, firstB. Metatarsal, right, fifthC. Tendon, foot, rightD. Skin, foot, rightA. Received fresh labeled with the patient's name,medical record number and "metatarsal, right, first" is a transected bone measuring 2.2 cm in lengthand ranging 1.8-2.5 cm in diameter. One end is baca-gardner and dusky. The opposite end is focally hemorrhagic. The specimen is sectioned to reveal heterogeneous, gardner-pink to red trabecular bone with no gross lesions. Bath Steward/Stewardess sections are submitted.Section code:A1: Smaller gardner-baca bone margin, en face, following decalcificationA2: Opposite bone margin, en face, following decalcificationB. Received fresh labeled with the patient's name, medical record number and "metatarsal, right" is a metatarsal head measuring 4.3 cm in length and ranging 1.2-2.2 cm in diameter. There is a minimal amount of attached hemorrhagic soft tissue. The articular surface is gardner-white and smooth. The specimen is sectioned to reveal heterogeneous gardner-red trabecular bone with no gross lesions. Bath Steward/Stewardess sections are submitted.Section code:B1: Bone margin, en face, following decalcificationB2 physician relations representative of hemorrhagic soft tissue and bone, following decalcificationC. Received fresh labeled with the patient's name, medical record number and "tendon/tendon sheath" is an 8.1 x 1.3 x 0.3 cm gardner-baca, congested tendon. The specimen is serially sectioned and no gross lesions are identified. Bath Steward/Stewardess sectionsare submitted in C1.D. Received fresh labeled with the patient's name, medical record number and "right foot eschar" is 11.5 x 11.5 x 0.8 cm aggregate of 4 irregular portions of black- baca, hyperkeratotic skin. Specimen is serially sectioned to reveal hard, hemorrhagic tissue. Bath Steward/Stewardess sections are submitted in D1-D2.BREANNA Nava, LEW ([facility])PERFORMEDPOCT-GLUCOSE [id number] 12:59:00 Test Item Value Reference Range Interpretation Comments POC-GLUCOSE METER 257 mg/dL 70-110 H : TESTED A T [facility] 6720 (BEAKER) (test code = [facility], 1538) 10381: Oliving Machine Operator/Techni estefani ID = [id number] for OL MOS, SUREKHA POCT-GLUCOSE [id number] 08:50:00 Test Item Value Reference Range Interpretation Comments POC-GLUCOSE METER 183 mg/dL 70-110 H : TESTED A T [facility] 6720 (BEAKER) (test code = [facility], 1538) 51825: Oliving Machine Operator/Techni estefani ID = [id number] for OL MOS, SUREKHA BASIC METABOLIC [id number] 06:49:00 Test Item Value Reference Range Interpretation [...] S NOT APPLICABLE FOR DIALYSIS PATIEN TS. Oliving Machine Operator ID - DANITZA [id number] 06:48:00 Test Item Value Reference Range Interpretation Comments MAGNESIUM (BEAKER) (test code = 2.1 mg/dL 1.6-2.6 627) Oliving Machine Operator ID - GARYZAYRA LCBC W/PLT COUNT & AUTO [id number] 05:42:00 Test Item Value Reference Range Interpretation [...] PERCENT (BEAKER) (test code = 2801) CALCIUM, [id number] 05:04:00 Test Item Value Reference Range Interpretation Comments CALCIUM IONIZED (BEAKER) (test 1.02 mmol/L 1.12-1.27 L code = 698) PH, BLOOD (BEAKER) (test code = 7.42 1810) POCT-GLUCOSE [id number] 21:20:00 Test Item Value Reference Range Interpretation Comments POC-GLUCOSE METER 334 mg/dL 70-110 H : [facility] (test code = [facility], 1538) 39757: Oliving Machine Operator/Techni estefani ID = [id number] for JAD SALGUERO POCT-GLUCOSE [id number] 17:37:00 Test Item Value Reference Range Interpretation Comments POC-GLUCOSE METER 256 mg/dL 70-110 H : TESTED A T [facility] 6720 (BEAKER) (test code = [facility], 1538) 80371: Oliving Machine Operator/Techni estefani ID = [id number] for MOISES JACOB SARS-COV2/RT-PCR ([facility])2019-11-13 13:07:00 Test Item Value Reference Range Interpretation Comments SARS-COV2/RT-PCR (test Negative Not Detected, Negative, code = 6985472) See external report for linked test SARS-COV-2 [facility] (test code = 3798916) Negative result for this test determines that [...] justifying the authorization of the emergency use ofin vitro diagnostic tests for detection and/or diagnosis of COVID-19 is terminated under Section 564(b)(2) of the Act or the EUA is revoked under Section 564(g) of the Act.Fact Sheet for Healthcare Prov iders:https://www.[employer]/sites/default/files/product/documents/Fact_Sheet_HC _Muzsuwrbs_Kucw_VVZP-NrY-4.pdfFact Sheet for Healthcare Patients:https://www.[employer]/sites/default/files/product/docume nts/Vllv_Isvlt_Thwpthvf_Mizn_IYRE-JzK-7.pdfPerforming Laboratory:[facility], [place] [address]WVQMZ METABOLIC PANEL 2019-11-13 06:03:00 Test Item Value [...] S NOT APPLICABLE FOR DIALYSIS PATIEN TS. Oliving Machine Operator ID - PIAYA LPOCT-GLUCOSE [id number] 21:20:00 Test Item Value Reference Range Interpretation Comments POC-GLUCOSE METER 234 mg/dL 70-110 H : TESTED A T [facility] 6720 (BEAKER) (test code = [facility], 1538) 65259: Oliving Machine Operator/Techni estefani ID = [id number] for SA CRYSTAL HIGGINS POCT-GLUCOSE [id number] 17:07:00 Test Item Value Reference Range Interpretation Comments POC-GLUCOSE METER 233 mg/dL 70-110 H : TESTED A T [facility] 6720 (BEAKER) (test code = [facility], 1538) 36846: Oliving Machine Operator/Techni estefani ID = [id number] for FA TY GUNNER POCT-GLUCOSE [id number] 12:06:00 Test Item Value Reference Range Interpretation Comments POC-GLUCOSE METER 248 mg/dL 70-110 H : TESTED A T [facility] 6720 (BEAKER) (test code = [facility], 1538) 56184: Oliving Machine Operator/Techni estefani ID = [id number] for FA TY, GUNNER BASIC METABOLIC [id number] 11:18:00 Test Item Value Reference Range Interpretation [...] S NOT APPLICABLE FOR DIALYSIS PATIEN TS. Oliving Machine Operator ID - JAQUELINE MOperator ID - JEREMY [id number] 11:15:00 Test Item Value Reference Range Interpretation Comments MAGNESIUM (BEAKER) (test code = 2.0 mg/dL 1.6-2.6 627) Oliving Machine Operator ID - JEREMY MPOCT-GLUCOSE [id number] 07:56:00 Test Item Value Reference Range Interpretation Comments POC-GLUCOSE METER 137 mg/dL 70-110 H : [facility] ([facility]ER[facility] (test code = [facility], 1538) 60876: Oliving Machine Operator/Techni estefani ID = [id number] for GUNNER PANDYA CALCIUM, [id number] 07:50:00 Test Item Value Reference Range Interpretation Comments CALCIUM IONIZED (BEAKER) (test 0.98 mmol/L 1.12-1.27 L code = 698) PH, BLOOD (BEAKER) (test code = 7.42 1810) CBC W/PLT COUNT & AUTO [id number] 06:03:00 Test Item Value Reference Range Interpretation [...] PERCENT (BEAKER) (test code = 2801) POCT-GLUCOSE [id number] 21:00:00 Test Item Value Reference Range Interpretation Comments POC-GLUCOSE METER 233 mg/dL 70-110 H : TESTED A T [facility] 6720 (BEAKER) (test code = [facility], 1538) 07428: Oliving Machine Operator/Techni estefani ID = [id number] for SJ HERBERT POCT-GLUCOSE [id number] 16:59:00 Test Item Value Reference Range Interpretation Comments POC-GLUCOSE METER 237 mg/dL 70-110 H : TESTED A T [facility] 6720 ([facility]) (test code = [facility], 1538) 82135: Oliving Machine Operator/Techni estefani ID = [id number] for GUNNER PANDYA CREATINE KINASE (CK)2019-11-11 12:29:00 Test Item Value Reference Range Interpretation Comments CREATINE KINASE TOTAL ([facility]) (test 32 U/L 29-200 code = 380) Oliving Machine Operator ID - ANTONY FPOCT-GLUCOSE [id number] 12:04:00 Test Item Value Reference Range Interpretation Comments POC-GLUCOSE METER 237 mg/dL 70-110 H : TESTED A T [facility] 6720 ([facility]) (test code = [facility], 1538) 61215: Oliving Machine Operator/Techni estefani ID = [id number] for GUNNER PANDYA SURGICALLY OBTAINED CULTURE + GRAM [id number] 10:13:00 Test Item Value Reference Range Interpretation Comments CULTURE ([facility]) ENTEROBACTER A 2+ Enteroba cter (test code [...] S Sulfamethoxazole (test code = 47) CULTURE ([facility]) VANCOMYCIN A 2+ Vancomyc in (test code [...] No organisms seen (BEAKER) (test code = 972079) BASIC METABOLIC [id number] 08:46:00 Test Item Value Reference Range Interpretation [...] S NOT APPLICABLE FOR DIALYSIS PATIEN TS. Oliving Machine Operator ID Benjie HARDY [id number] 08:33:00 Test Item Value Reference Range Interpretation Comments MAGNESIUM (BEAKER) (test code = 2.1 mg/dL 1.6-2.6 627) Oliving Machine Operator ID Benjie HARDY FPOCT-GLUCOSE [id number] 08:11:00 Test Item Value Reference Range Interpretation Comments POC-GLUCOSE METER 177 mg/dL 70-110 H : TESTED A T [facility] 6720 (BEAKER) (test code = [facility] [place], 1538) 85588: Oliving Machine Operator/Techni estefani ID = [id number] for GUNNER PANDYA CALCIUM, [id number] 07:08:00 Test Item Value Reference Range Interpretation Comments CALCIUM IONIZED (BEAKER) (test 1.01 mmol/L 1.12-1.27 L code = 698) PH, BLOOD (BEAKER) (test code = 7.46 1810) CBC W/PLT COUNT & AUTO [id number] 06:12:00 Test Item Value Reference Range Interpretation [...] PERCENT (BEAKER) (test code = 2801) BLOOD [id number] 06:00:00 Test Item Value Reference Range Interpretation Comments CULTURE (BEAKER) (test No growth in 5 days code = 1095) BLOOD [id number] 00:00:00 Test Item Value Reference Range Interpretation Comments CULTURE (BEAKER) (test No growth in 5 days code = 1095) POCT-GLUCOSE [id number] 20:39:00 Test Item Value Reference Range Interpretation Comments POC-GLUCOSE METER 187 mg/dL 70-110 H : TESTED A T [facility] 6720 (BEAKER) (test code = [facility], 1538) 31012: Oliving Machine Operator/Techni estefani ID = [id number] for SJ HERBERT POCT-GLUCOSE [id number] 12:11:00 Test Item Value Reference Range Interpretation Comments POC-GLUCOSE METER 239 mg/dL 70-110 H : TESTED A T [facility] 6720 (BEAKER) (test code = [facility], 1538) 76117: Oliving Machine Operator/Techni estefani ID = [id number] for JACOB LYLES BASIC METABOLIC [id number] 09:32:00 Test Item Value Reference Range Interpretation [...] S NOT APPLICABLE FOR DIALYSIS PATIEN TS. Oliving Machine Operator ID - DANITZA [id number] 09:15:00 Test Item Value Reference Range Interpretation Comments MAGNESIUM (BEAKER) (test code = 2.3 mg/dL 1.6-2.6 627) Oliving Machine Operator ID - DANITZA LPOCT-GLUCOSE [id number] 08:14:00 Test Item Value Reference Range Interpretation Comments POC-GLUCOSE METER 173 mg/dL 70-110 H : TESTED A T [facility] 6720 (BEAKER) (test code = [facility] [place], 1538) 64274: Oliving Machine Operator/Techni estefani ID = [id number] for JACOB LYLES CALCIUM, [id number] 07:23:00 Test Item Value Reference Range Interpretation Comments CALCIUM IONIZED (BEAKER) (test 1.02 mmol/L 1.12-1.27 L code = 698) PH, BLOOD (BEAKER) (test code = 7.39 1810) CBC W/PLT COUNT & AUTO [id number] 06:22:00 Test Item Value Reference Range Interpretation [...] (BEAKER) (test code = 2801) VANCOMYCIN LEVEL, [id number] 06:07:00 Test Item Value Reference Range Interpretation Comments VANCOMYCIN RANDOM (BEAKER) (test 29.4 ug/mL code = 523) Reference Range: No NormalsOperator ID - PIAYA LPOCT-GLUCOSE [id number] 21:26:00 Test Item Value Reference Range Interpretation Comments POC-GLUCOSE METER 250 mg/dL 70-110 H : TESTED A T [facility] 6720 (BEAKER) (test code = [facility], 1538) 74086: Oliving Machine Operator/Techni estefani ID = [id number] for UL LATTIL, SJ POCT-GLUCOSE [id number] 17:14:00 Test Item Value Reference Range Interpretation Comments POC-GLUCOSE METER 283 mg/dL 70-110 H : TESTED A T [facility] 6720 (BEAKER) (test code = [facility], 1538) 81426: Oliving Machine Operator/Techni estefani ID = [id number] for FA TY GUNNER POCT-GLUCOSE [id number] 12:13:00 Test Item Value Reference Range Interpretation Comments POC-GLUCOSE METER 233 mg/dL 70-110 H : TESTED A T [facility] 6720 (BEAKER) (test code = [facility], 1538) 64858: Oliving Machine Operator/Techni estefani ID = [id number] for GUNNER PANDYA SPIN/CONCENTRATION [id number] 10:35:00 Test Item Value Reference Range Interpretation Comments CONCENTRATION CHARGED (BEAKER) (test Done code = 2657) POCT-GLUCOSE [id number] 08:01:00 Test Item Value Reference Range Interpretation Comments POC-GLUCOSE METER 195 mg/dL 70-110 H : TESTED A T [facility] 6720 (BEAKER) (test code = [facility], 1538) 72191: Oliving Machine Operator/Techni estefani ID = [id number] for GUNNER PANDYA BASIC METABOLIC [id number] 06:24:00 Test Item Value Reference Range Interpretation [...] S NOT APPLICABLE FOR DIALYSIS PATIEN TS. Oliving Machine Operator ID - [id number] 06:07:00 Test Item Value Reference Range Interpretation Comments PHOSPHORUS (BEAKER) (test code = 5.2 mg/dL 2.3-4.7 H 604) Oliving Machine Operator ID - [id number] 06:07:00 Test Item Value Reference Range Interpretation Comments MAGNESIUM (BEAKER) (test code = 2.1 mg/dL 1.6-2.6 627) Oliving Machine Operator ID - EDASICBC W/PLT COUNT & AUTO [id number] 06:02:00 Test Item Value Reference Range Interpretation [...] PERCENT (BEAKER) (test code = 2801) CALCIUM, [id number] 05:45:00 Test Item Value Reference Range Interpretation Comments CALCIUM IONIZED (BEAKER) (test 0.97 mmol/L 1.12-1.27 L code = 698) PH, BLOOD (BEAKER) (test code = 7.43 1810) POCT-GLUCOSE [id number] 21:43:00 Test Item Value Reference Range Interpretation Comments POC-GLUCOSE METER 343 mg/dL 70-110 H : TESTED A T [facility] 6720 (BEAKER) (test code = DASIA Garcia [facility], 1538) [address]: Oliving Machine Operator/Techni estefani ID = [id number] for [place] RBAJAL, TIMA RAD, FOOT, 2 VIEWS, [id number] 21:02:00Reason for exam:->post op revision fo TMA, [...] diffuse vascular calcifications. 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 Signed: Francisco Early Verified Date/Time: 11/08/2019 21:02:38 Reading Location: [address] Transitional Reading Room POCT-GLUCOSE [id number] 17:48:00 Test Item Value Reference Range Interpretation Comments POC-GLUCOSE METER 135 mg/dL 70-110 H : TESTED A T [facility] 6720 (BEAKER) (test code = [facility], 1538) [address]60: Oliving Machine Operator/Techni estefani ID = [id number] for JACOB LYLES POCT-GLUCOSE [id number] 16:57:00 Test Item Value Reference Range Interpretation Comments POC-GLUCOSE METER 130 mg/dL 70-110 H : TESTED A T [facility] 6720 (BEAKER) (test code = [facility], 1538) 48352: Oliving Machine Operator/Techni estefani ID = [id number] for ROSE GONZALES POCT-GLUCOSE [id number] 12:31:00 Test Item Value Reference Range Interpretation Comments POC-GLUCOSE METER 117 mg/dL 70-110 H : TESTED A T [facility] 6720 (BEAKER) (test code = [facility], 1538) 88571: Oliving Machine Operator/Techni estefani ID = [id number] for Destini Contreras BASIC METABOLIC [id number] 06:39:00 Test Item Value Reference Range Interpretation [...] S NOT APPLICABLE FOR DIALYSIS PATIEN TS. Oliving Machine Operator ID - PIAYA [id number] 06:38:00 Test Item Value Reference Range Interpretation Comments PHOSPHORUS (BEAKER) (test code = 5.2 mg/dL 2.3-4.7 H 604) Oliving Machine Operator ID - DANITZA [id number] 06:38:00 Test Item Value Reference Range Interpretation Comments MAGNESIUM (BEAKER) (test code = 2.1 mg/dL 1.6-2.6 627) Oliving Machine Operator ID - DANITZA LVANCOMYCIN LEVEL, [id number] 06:18:00 Test Item Value Reference Range Interpretation Comments VANCOMYCIN RANDOM (BEAKER) (test 14.1 ug/mL code = 523) Reference Range: No NormalsOperator ID - DANITZA LCBC W/PLT COUNT & AUTO [id number] 05:32:00 Test Item Value Reference Range Interpretation [...] PERCENT (BEAKER) (test code = 2801) POCT-GLUCOSE [id number] 21:15:00 Test Item Value Reference Range Interpretation Comments POC-GLUCOSE METER 199 mg/dL 70-110 H : TESTED A T [facility] 6720 (BEAKER) (test code = [facility], [facility]) 80690: Oliving Machine Operator/Techni estefani ID = [id number] for SA HIGGINS, CRYSTAL POCT-GLUCOSE [id number] 17:20:00 Test Item Value Reference Range Interpretation Comments POC-GLUCOSE METER 214 mg/dL 70-110 H : TESTED A T [facility] 6720 (BEAKER) (test code = [facility], 153) 20367: Oliving Machine Operator/Techni estefani ID = [id number] for SA NTOS, JACOB POCT-GLUCOSE [id number] 12:59:00 Test Item Value Reference Range Interpretation Comments POC-GLUCOSE METER 135 mg/dL 70-110 H : TESTED A T [facility] 6720 (BEAKER) (test code = [facility], 153) 73087: Oliving Machine Operator/Techni estefani ID = [id number] for SA NTOS, JACOB POCT-GLUCOSE [id number] 06:05:00 Test Item Value Reference Range Interpretation Comments POC-GLUCOSE METER 130 mg/dL 70-110 H : TESTED A T [facility] 6720 (BEAKER) (test code = [facility], 1538) 02175: Oliving Machine Operator/Techni estefani ID = [id number] for UL LATTIL, SJ BASIC METABOLIC [id number] 05:38:00 Test Item Value Reference Range Interpretation [...] S NOT APPLICABLE FOR DIALYSIS PATIEN TS. Oliving Machine Operator ID - [id number] 05:36:00 Test Item Value Reference Range Interpretation Comments PHOSPHORUS (BEAKER) (test code = 5.1 mg/dL 2.3-4.7 H 604) Oliving Machine Operator ID - [id number] 05:36:00 Test Item Value Reference Range Interpretation Comments MAGNESIUM (BEAKER) (test code = 2.2 mg/dL 1.6-2.6 627) Oliving Machine Operator ID - EDASIPOCT-GLUCOSE [id number] 03:01:00 Test Item Value Reference Range Interpretation Comments POC-GLUCOSE METER 72 mg/dL 70-110 : TESTED A T [facility] 6720 (BEAKER) (test code = [facility], 1538) 56278: Oliving Machine Operator/Techni estefani ID = [id number] for SJ WHITAKER POCT-GLUCOSE [id number] 00:16:00 Test Item Value Reference Range Interpretation Comments POC-GLUCOSE METER 94 mg/dL 70-110 : TESTED A T [facility] 6720 (BEAKER) (test code = [facility], 1538) 23584: Oliving Machine Operator/Techni estefani ID = [id number] for ADRY TTIL, SJ POCT-GLUCOSE [id number] 23:44:00 Test Item Value Reference Range Interpretation Comments POC-GLUCOSE METER 57 mg/dL 70-110 L : TESTED A T [facility] 6720 (BEAKER) (test code = [facility], [facility]8) 84654: Oliving Machine Operator/Techni estefani ID = [id number] for ADRY TTIL, SJ POCT-GLUCOSE [id number] 21:06:00 Test Item Value Reference Range Interpretation Comments POC-GLUCOSE METER 80 mg/dL 70-110 : TESTED A T [facility] 6720 (BEAKER) (test code = [facility], 1538) 05453: Oliving Machine Operator/Techni estefani ID = [id number] for ADRY TTIL, SJ POCT-GLUCOSE [id number] 18:03:00 Test Item Value Reference Range Interpretation Comments POC-GLUCOSE METER 70 mg/dL 70-110 : TESTED A T [facility] 6720 (BEAKER) (test code = [facility], [facility]8) 41708: Oliving Machine Operator/Techni estefani ID = [id number] for JUAN Z, EVONNE VIAL POCT-GLUCOSE [id number] 17:47:00 Test Item Value Reference Range Interpretation Comments POC-GLUCOSE METER 45 mg/dL 70-110 L : TESTED A T [facility] 6720 (BEAKER) (test code = [facility], [facility]8) 01033: Oliving Machine Operator/Techni estefani ID = [id number] for JUAN Z, EVONNE VIAL SARS-COV2/RT-PCR ([facility])2019-11-06 13:38:00 Test Item Value Reference Range Interpretation Comments SARS-COV2/RT-PCR (test Negative Not Detected, Negative, code = 1330634) See external report for linked test SARS-COV-2 PERFORMING LAB [facility] KEELY (test code = 6154161) Negative result for this test determines that [...] justifying the authorization of the emergency use ofin vitro diagnostic tests for detection and/or diagnosis of COVID-19 is terminated under Section 564(b)(2) of the Act or the EUA is revoked under Section 564(g) of the Act.Fact Sheet for Healthcare Prov iders:https://www.Carebase/sites/default/files/product/documents/Fact_Sheet_HC _Mnxwgbgjx_Tomb_MNEX-GeC-8.pdfFact Sheet for Healthcare Patients:https://www.Carebase/sites/default/files/product/docume nts/Aeph_Vamhh_Gsixrwrw_Yzcl_EIDP-UpU-6.pdfPerforming Laboratory:[facility] [place], [place] [id number] 12:56:00 Test Item Value Reference Range Interpretation Comments FERRITIN (BEAKER) (test code = 1137.02 ng/mL 5.00-275.00 H 361) Oliving Machine Operator ID - NTPIRON, TIBC, % SAT. (WITHOUT FERRITIN)2019-11-06 12:36:00 Test Item Value Reference Range Interpretation Comments IRON (BEAKER) (test code = 547) 16.0 ug/dL 40.0-160.0 L TOTAL IRON BINDING CAPACITY 139 ug/dL 250-450 L (BEAKER) (test code = 769) IRON % SATURATION (2) (BEAKER) 12 % 20-55 L (test code = 2590) Oliving Machine Operator ID - NTPRAD, FOOT, MIN 3 VIEWS, [id number] 11:14:00Reason for exam:->Nonhealing right TMA stump; open woundsFINAL REPORT RAD, FOOT, MIN 3 VIEWS, RIGHT CLINICAL INDICATION: Nonhealing right TMA stump; open wounds COMPARISON: June 19, [...] Cuello Robert MDReport Verified Date/Time: 11/06/2019 11:14:48 ReadingLocation: [facility] Reading Room POCT-GLUCOSE [id number] 06:53:00 Test Item Value Reference Range Interpretation Comments POC-GLUCOSE METER 81 mg/dL 70-110 : [facility] (BEAKER) (test code = [facility], 1538) 19455: Oliving Machine Operator/Techni estefani ID = [id number] for ADRY TTIL, SJ [id number] 06:44:00 Test Item Value Reference Range Interpretation Comments MAGNESIUM (BEAKER) (test code = 2.3 mg/dL 1.6-2.6 627) Oliving Machine Operator ID - [id number] 06:44:00 Test Item Value Reference Range Interpretation Comments PHOSPHORUS (BEAKER) (test code = 5.4 mg/dL 2.3-4.7 H 604) Oliving Machine Operator ID - DBPOCT-GLUCOSE [id number] 06:36:00 Test Item Value Reference Range Interpretation Comments POC-GLUCOSE METER 61 mg/dL 70-110 L : TESTED A T [facility] 6720 (BEAKER) (test code = [facility], 1538) 39299: Oliving Machine Operator/Techni estefani ID = [id number] for ADRY TTIL, SJ CBC W/PLT COUNT & AUTO [id number] 06:23:00 Test Item Value Reference Range Interpretation [...] (BEAKER) (test code = 2801) VANCOMYCIN LEVEL, [id number] 06:22:00 Test Item Value Reference Range Interpretation Comments VANCOMYCIN RANDOM (BEAKER) (test 12.3 ug/mL code = 523) Reference Range: No NormalsOperator ID - EDASIPOCT-GLUCOSE [id number] 06:07:00 Test Item Value Reference Range Interpretation Comments POC-GLUCOSE METER 42 mg/dL 70-110 L : TESTED A T [facility]20 (BEAKER) (test code = [facility] [place], 1538) 12889: Oliving Machine Operator/Techni estefani ID = [id number] for SJ WHITAKER CREATINE KINASE (CK)2019-11-06 05:29:00 Test Item Value Reference Range Interpretation Comments CREATINE KINASE TOTAL (BEAKER) (test 131 U/L 29-200 code = 380) Oliving Machine Operator ID - EDASICOMPREHENSIVE METABOLIC [id number] 05:29:00 Test Item Value Reference Range Interpretation [...] S NOT APPLICABLE FOR DIALYSIS PATIEN TS. Oliving Machine Operator ID - EDASICOMPREHENSIVE METABOLIC [id number] 23:15:00 Test Item Value Reference Range Interpretation [...] S NOT APPLICABLE FOR DIALYSIS PATIEN TS. Oliving Machine Operator ID - DBLACTIC ACID, [id number] 23:09:00 Test Item Value Reference Range Interpretation Comments LACTATE BLOOD VENOUS (2) (BEAKER) 1.19 mmol/L 0.50-2.20 (test code = 2872) Oliving Machine Operator ID - DBPOCT-GLUCOSE [id number] 22:24:00 Test Item Value Reference Range Interpretation Comments POC-GLUCOSE METER 103 mg/dL 70-110 : TESTED A T [facility] 6720 (BEAKER) (test code = [facility], 1538) 96564: Oliving Machine Operator/Techni estefani ID = [id number] for UL LATTIL, SJ POCT-GLUCOSE [id number] 21:50:00 Test Item Value Reference Range Interpretation Comments POC-GLUCOSE METER 63 mg/dL 70-110 L : TESTED A T [facility] 6720 ([employer]) (test code = [facility], 1538) 00088: Oliving Machine Operator/Techni estefani ID = [id number] for ADRY TTIL, SJ POCT-GLUCOSE [id number] 21:33:00 Test Item Value Reference Range Interpretation Comments POC-GLUCOSE METER 42 mg/dL 70-110 L : TESTED A T [facility] 6720 ([employer]) (test code = [facility], 1538) 51414: Oliving Machine Operator/Techni estefani ID = [id number] for ADRY TTIL, SJ ANAEROBIC [id number] 19:16:00 Test Item Value Reference Range Interpretation Comments CULTURE (BEAKER) A 2+ Same org anism has been (test code = 1095) isolated from culture(s) of the same body s ite and collection date . Repeat identification performed only after [facility].Refe r to previous cultur e of* - Cutibacterium a cnes ANAEROBIC [id number] 19:13:00 Test Item Value Reference Range Interpretation Comments CULTURE (BEAKER) (test A 2+ Cu tibacterium acnes code = 1095) POCT-GLUCOSE [id number] 11:08:00 Test Item Value Reference Range Interpretation Comments POC-GLUCOSE METER 136 mg/dL 70-110 H : TESTED A T [facility] 6720 ([employer]) (test code = [facility], 1538) 80890: Oliving Machine Operator/Techni estefani ID = [id number] for YUNIOR SIMS POCT-GLUCOSE [id number] 07:51:00 Test Item Value Reference Range Interpretation Comments POC-GLUCOSE METER 89 mg/dL 70-110 : TESTED A T [facility] 6720 (BEAKER) (test code = [facility], 1538) 59252: Oliving Machine Operator/Techni estefani ID = [id number] for YUNIOR JOHNSTON POCT-GLUCOSE [id number] 21:07:00 Test Item Value Reference Range Interpretation Comments POC-GLUCOSE METER 145 mg/dL 70-110 H : TESTED A T [facility] 6720 (BEAKER) (test code = [facility], 1538) 11894: Oliving Machine Operator/Techni estefani ID = [id number] for RON GODWIN POCT-GLUCOSE [id number] 14:59:00 Test Item Value Reference Range Interpretation Comments POC-GLUCOSE METER 152 mg/dL 70-110 H : TESTED A T [facility] 6720 (BEAKER) (test code = [facility], 1538) 63343: Oliving Machine Operator/Techni estefani ID = [id number] for Prasanna enumann Mary Lou BASIC METABOLIC [id number] 10:10:00 Test Item Value Reference Range Interpretation [...] S NOT APPLICABLE FOR DIALYSIS PATIEN TS. Oliving Machine Operator ID - EDASISURGICALLY OBTAINED CULTURE + GRAM [id number] 09:54:00 Test Item Value Reference Range Interpretation Comments CULTURE (BEAKER) A <1+ Same or ganism has (test code = been isolated f rom 1095) cultures(s) of the same body site and collection date . Repeat identifi cation and susceptibil ity testing perform ed only after [facility]at ion with [facility].Refe r to previous cultur e ofCandida parap silosis GRAM STAIN 1+ WBCs RESULT (BEAKER) (test code = 1123) GRAM STAIN <1+ gram RESULT (BEAKER) negative rods (test code = 068645) GRAM STAIN <1+ gram RESULT (BEAKER) positive cocci (test code = in pairs 034752) 1+ Skin floraSURGICALLY OBTAINED CULTURE + GRAM [id number] 09:49:00 Test Item Value Reference Interpretation Comments [...] gram negative (BEAKER) (test code = rods 659451) GRAM STAIN RESULT <1+ gram positive (BEAKER) (test code = rods 996540) GRAM STAIN RESULT 2+ gram positive (BEAKER) (test code = cocci in pairs 438844) GRAM STAIN RESULT 1+ gram positive (BEAKER) (test code = cocci in clusters 533327) GRAM STAIN RESULT 1+ yeast (BEAKER) (test code = 093681) 3+ Skin lake consisting of Coagulase Negative Staphylococcus and Diphtheroid species.POCT-GLUCOSE [id number] 08:04:00 Test Item Value Reference Range Interpretation Comments POC-GLUCOSE METER 92 mg/dL 70-110 : TESTED A T [facility] 6720 (BEAKER) (test code = [facility], [facility]8) 82130: Oliving Machine Operator/Techni estefani ID = [id number] for Will Phil valadez POCT-GLUCOSE [id number] 21:49:00 Test Item Value Reference Range Interpretation Comments POC-GLUCOSE METER 155 mg/dL 70-110 H : TESTED A T [facility] 6720 (BEAKER) (test code = [facility], [facility]8) 45217: Oliving Machine Operator/Techni estefani ID = [id number] for RON GODWIN POCT-GLUCOSE [id number] 18:15:00 Test Item Value Reference Range Interpretation Comments POC-GLUCOSE METER 160 mg/dL 70-110 H : TESTED A T [facility] 6720 (BEAKER) (test code = [facility], [facility]8) 25863: Oliving Machine Operator/Techni estefani ID = [id number] for Me Mila noblefer POCT-GLUCOSE [id number] 14:24:00 Test Item Value Reference Range Interpretation Comments POC-GLUCOSE METER 182 mg/dL 70-110 H : TESTED A T [facility] 6720 (BEAKER) (test code = [facility], [facility]) 65138: Oliving Machine Operator/Techni estefani ID = [id number] for Me ndez, Celi POCT-GLUCOSE [id number] 09:44:00 Test Item Value Reference Range Interpretation Comments POC-GLUCOSE METER 146 mg/dL 70-110 H : TESTED A T [facility] 6720 (BEAKER) (test code = [facility], 1538) 22786: Oliving Machine Operator/Techni estefani ID = [id number] for Me ndez, Celi BASIC METABOLIC [id number] 07:20:00 Test Item Value Reference Range Interpretation [...] S NOT APPLICABLE FOR DIALYSIS PATIEN TS. Oliving Machine Operator ID - PIAYA LCBC W/PLT COUNT & AUTO [id number] 05:47:00 Test Item Value Reference Range Interpretation [...] PERCENT (BEAKER) (test code = 2801) POCT-GLUCOSE [id number] 05:39:00 Test Item Value Reference Range Interpretation Comments POC-GLUCOSE METER 200 mg/dL 70-110 H : TESTED A T [facility] 6720 (BEAKER) (test code = [facility], 153) 77895: Oliving Machine Operator/Techni estefani ID = [id number] for CHRIS MAJANO POCT-GLUCOSE [id number] 05:35:00 Test Item Value Reference Range Interpretation Comments POC-GLUCOSE METER 120 mg/dL 70-110 H : TESTED A T [facility] 6720 (BEAKER) (test code = [facility], 153) 46511: Oliving Machine Operator/Techni estefani ID = [id number] for EVONNE RUBY VIAL POCT-GLUCOSE [id number] 05:25:00 Test Item Value Reference Range Interpretation Comments POC-GLUCOSE METER 126 mg/dL 70-110 H : TESTED A T [facility] 6720 (BEAKER) (test code = [facility], 153) 30434: Oliving Machine Operator/Techni estefani ID = [id number] for Mila Jesusfer POCT-GLUCOSE [id number] 05:19:00 Test Item Value Reference Range Interpretation Comments POC-GLUCOSE METER 103 mg/dL 70-110 : TESTED A T [facility] 6720 (BEAKER) (test code = [facility], 153) 13982: Oliving Machine Operator/Techni estefani ID = [id number] for Celi Jesus HEPATITIS B SURFACE [id number] 11:26:00 Test Item Value Reference Range Interpretation Comments HEPATITIS B SURFACE ANTIGEN (2) Nonreactive Nonreactive (BEAKER) (test code = 2585) Specimen is considered negative for HBsAg.POCT-GLUCOSE [id number] 21:38:00 Test Item Value Reference Range Interpretation Comments POC-GLUCOSE METER 170 mg/dL 70-110 H : TESTED A T [facility] 6720 (BEAKER) (test code = [facility], 1538) 61072: Oliving Machine Operator/Techni estefani ID = [id number] for RON GODWIN POCT-GLUCOSE [id number] 17:00:00 Test Item Value Reference Range Interpretation Comments POC-GLUCOSE METER 150 mg/dL 70-110 H : TESTED A T [facility] 6720 (BEAKER) (test code = [facility], 1538) 23924: Oliving Machine Operator/Techni estefani ID = [id number] for Claudia stewartinez, Katie POCT-GLUCOSE [id number] 08:37:00 Test Item Value Reference Range Interpretation Comments POC-GLUCOSE METER 105 mg/dL 70-110 : TESTED A T [facility] 6720 (BEAKER) (test code = [facility], 1538) 14987: Oliving Machine Operator/Techni estefani ID = [id number] for Claudia rtinez, Katie POCT-GLUCOSE [id number] 17:56:00 Test Item Value Reference Range Interpretation Comments POC-GLUCOSE METER 96 mg/dL 70-110 : TESTED A T [facility] 6720 (BEAKER) (test code = [facility], 1538) 47719: Oliving Machine Operator/Techni estefani ID = [id number] for ROSE CHAVEZ BLOOD GAS, [id number] 17:17:00 Test Item Value Reference Range Interpretation [...] code = 1819) 90.0 % SODIUM NA-STAT [id number] 17:17:00 Test Item Value Reference Range Interpretation Comments SODIUM (BEAKER) (test code = 381) 134 meq/L 136-145 L HGB/HCT (H&H) - STAT [id number] 17:17:00 Test Item Value Reference Range Interpretation Comments HEMOGLOBIN (BEAKER) (test code = 11.4 g/dL 13.0-16.8 L 410) HEMATOCRIT (BEAKER) (test code = 34.0 % 40.0-50.0 L 411) CALCIUM, [id number] 17:17:00 Test Item Value Reference Range Interpretation Comments CALCIUM IONIZED (BEAKER) (test 1.22 mmol/L 1.12-1.27 code = 698) PH, BLOOD (BEAKER) (test code = 7.30 1810) GLUCOSE-STAT [id number] 17:16:00 Test Item Value Reference Range Interpretation Comments GLUCOSE RANDOM (BEAKER) (test code = 92 mg/dL 70-110 652) POTASSIUM-STAT [id number] 17:16:00 Test Item Value Reference Range Interpretation Comments POTASSIUM (BEAKER) (test code = 4.3 meq/L 3.6-5.5 379) CALCIUM, [id number] 15:59:00 Test Item Value Reference Range Interpretation Comments CALCIUM IONIZED (BEAKER) (test 1.07 mmol/L 1.12-1.27 L code = 698) PH, BLOOD (BEAKER) (test code = 7.48 1810) BLOOD GAS, [id number] 15:59:00 Test Item Value Reference Range Interpretation [...] code = 1819) 50.0 % SODIUM NA-STAT [id number] 15:59:00 Test Item Value Reference Range Interpretation Comments SODIUM (BEAKER) (test code = 381) 133 meq/L 136-145 L HGB/HCT (H&H) - STAT [id number] 15:59:00 Test Item Value Reference Range Interpretation Comments HEMOGLOBIN (BEAKER) (test code = 10.8 g/dL 13.0-16.8 L 410) HEMATOCRIT (BEAKER) (test code = 32.0 % 40.0-50.0 L 411) GLUCOSE-STAT [id number] 15:58:00 Test Item Value Reference Range Interpretation Comments GLUCOSE RANDOM (BEAKER) (test code 101 mg/dL 70-110 = 652) POTASSIUM-STAT [id number] 15:58:00 Test Item Value Reference Range Interpretation Comments POTASSIUM (BEAKER) (test code = 4.1 meq/L 3.6-5.5 379) CALCIUM, [id number] 15:12:00 Test Item Value Reference Range Interpretation Comments CALCIUM IONIZED (BEAKER) (test 1.07 mmol/L 1.12-1.27 L code = 698) PH, BLOOD (BEAKER) (test code = 7.48 1810) BLOOD GAS, [id number] 15:12:00 Test Item Value Reference Range Interpretation [...] code = 1819) 50.0 % SODIUM NA-STAT [id number] 15:12:00 Test Item Value Reference Range Interpretation Comments SODIUM (BEAKER) (test code = 381) 134 meq/L 136-145 L GLUCOSE-STAT [id number] 15:12:00 Test Item Value Reference Range Interpretation Comments GLUCOSE RANDOM (BEAKER) (test code = 64 mg/dL 70-110 L 652) HGB/HCT (H&H) - STAT [id number] 15:12:00 Test Item Value Reference Range Interpretation Comments HEMOGLOBIN (BEAKER) (test code = 10.9 g/dL 13.0-16.8 L 410) HEMATOCRIT (BEAKER) (test code = 32.0 % 40.0-50.0 L 411) POTASSIUM-STAT [id number] 15:10:00 Test Item Value Reference Range Interpretation Comments POTASSIUM (BEAKER) (test code = 4.2 meq/L 3.6-5.5 379) SARS-COV2/RT-PCR ([facility])2019-10-18 09:21:00 Test Item Value Reference Range Interpretation Comments SARS-COV2/RT-PCR (test code Negative Not Detected, Negative, = 6558255) See external report for linked test SARS-COV-2 PERFORMING LAB [facility] (test code = 9779954) Negative results do not preclude SARS-CoV-2 infection [...] of the Act.Fact Sheet for Healthcare Pro viders:https://www.[employer]/Documents/Xpert%20Xpress%20SARS%20CoV-2/Fact%20Sh eets/302-3802%60XTXK-YET-5%20HEALTHCARE%20PROVIDERS%20FACT%20SHEET.pdfFact Sheet for Healthcare Patients:https://www.[employer]/Documents/Xpert%20Xpress%20SARS%20CoV-2/Fact%20Sheets/302-3801%20SARS-COV -2%20PATIENT%20FACT%20SHEET.pdfPerforming Laboratory:[address], [place] [address]KKA AND CREATININE [id number] 08:45:00 Test Item Value Reference Range Interpretation Comments BLOOD UREA NITROGEN 58 mg/dL 7-21 H (BEAKER) (test code = 354) CREATININE (BEAKER) 7.72 mg/dL 0.57-1.25 H (test code = 358) BUN/CREAT RATIO 8 Unable to ca lculate (BEAKER) (test code due to n on-numeric = [id number]) results EGFR (BEAKER) (test 7 mL/min/1.73 ESTIMAT ED GFR IS code = 1092) sq m NOT ACCURATE CREATININE CLEARANCE IN PREDICTING GLOMERULAR FILTRATION RATE . ESTIMATED GFR I S NOT APPLICABLE FOR DIALYSIS PATIEN TS. Oliving Machine Operator ID - [id number] 08:43:00 Test Item Value Reference Range Interpretation Comments SODIUM (BEAKER) (test code = 381) 137 meq/L 136-145 POTASSIUM (BEAKER) (test code = 5.1 meq/L 3.5-5.1 379) CHLORIDE (BEAKER) (test code = 382) 100 meq/L 98-107 CO2 (BEAKER) (test code = 355) 23 meq/L 22-29 Oliving Machine Operator ID - [id number] 08:43:00 Test Item Value Reference Range Interpretation Comments GLUCOSE RANDOM (BEAKER) (test code 157 mg/dL 70-105 H = 652) [employer] Machine Operator ID - [id number] 08:16:00 Test Item Value Reference Range Interpretation Comments HEMOGLOBIN (BEAKER) (test code = 11.1 GM/DL 13.7-17.5 L 410) Oliving Machine Operator ID - [id number] 08:16:00 Test Item Value Reference Range Interpretation Comments PLATELET COUNT (BEAKER) (test 259 K/CU MM 150-450 code = 756) Oliving Machine Operator ID - [id number] 06:26:00 Test Item Value Reference Range Interpretation Comments POC-GLUCOSE METER 129 mg/dL 70-110 H : TESTED A T [facility] 6720 (BEAKER) (test code [facility], = 1538) [address]: Oliving Machine Operator/Techni estefani ID = [id number] for JORD AN, LACRYSTAL BUN AND CREATININE [id number] 10:25:00 Test Item Value Reference Range Interpretation [...] S NOT APPLICABLE FOR DIALYSIS PATIEN TS. [employer]iving Machine Operator ID - [id number] 10:23:00 Test Item Value Reference Range Interpretation Comments SODIUM (BEAKER) (test code = 381) 140 meq/L 136-145 POTASSIUM (BEAKER) (test code = 4.5 meq/L 3.5-5.1 379) CHLORIDE (BEAKER) (test code = 382) 101 meq/L 98-107 CO2 (BEAKER) (test code = 355) 26 meq/L 22-29 Oliving Machine Operator ID - [id number] 10:23:00 Test Item Value Reference Range Interpretation Comments GLUCOSE RANDOM (BEAKER) (test code 157 mg/dL 70-105 H = 652) Oliving Machine Operator ID - [id number] 10:11:00 Test Item Value Reference Range Interpretation Comments HEMOGLOBIN (BEAKER) (test code = 12.2 GM/DL 13.7-17.5 L 410) Oliving Machine Operator ID - [id number] CULTURE + SMEAR (NON-SPUTUM)2019-08-01 12:08:00 Test Item Value Reference Range Interpretation Comments CULTURE (BEAKER) (test No acid-fast bacilli code = 1095) isolated in 42 days AFB SMEAR (BEAKER) No acid fast bacilli (test code = 994) seen FUNGUS CULTURE + [id number] 17:59:00 Test Item Value Reference Range Interpretation Comments CULTURE (BEAKER) (test No fungus isolated in code = 1095) 28 days FUNGUS SMEAR (BEAKER) No fungal elements seen (test code = 1406) POCT-GLUCOSE [id number] 12:17:00 Test Item Value Reference Range Interpretation Comments POC-GLUCOSE METER 159 mg/dL 70-110 H : TESTED A T [facility] 6720 (BEAKER) (test code = [facility] [employer] [place], 1538) 715[address]: Oliving Machine Operator/Techni estefani ID = [id number] for BRANDI BOONE BLESSING POCT-GLUCOSE [id number] 08:03:00 Test Item Value Reference Range Interpretation Comments POC-GLUCOSE METER 119 mg/dL 70-110 H : TESTED A T [facility] 6720 (BEAKER) (test code = [employer] [facility], 1538) 66871: Oliving Machine Operator/Techni estefani ID = [id number] for Izaiah Barber BASIC METABOLIC [id number] 05:28:00 Test Item Value Reference Range Interpretation [...] S NOT APPLICABLE FOR DIALYSIS PATIEN TS. Oliving Machine Operator ID - JAQUELINE [id number] 05:26:00 Test Item Value Reference Range Interpretation Comments PHOSPHORUS (BEAKER) (test code = 6.1 mg/dL 2.3-4.7 H 604) Oliving Machine Operator ID - JAQUELINE [id number] 05:26:00 Test Item Value Reference Range Interpretation Comments MAGNESIUM (BEAKER) (test code = 2.5 mg/dL 1.6-2.6 627) Oliving Machine Operator ID - JAQUELINE MCBC W/PLT COUNT & AUTO [id number] 05:12:00 Test Item Value Reference Range Interpretation [...] PERCENT (BEAKER) (test code = 2801) POCT-GLUCOSE [id number] 21:05:00 Test Item Value Reference Range Interpretation Comments POC-GLUCOSE METER 250 mg/dL 70-110 H : TESTED A T [facility] 6720 (BEAKER) (test code = [facility], 1538) 75634: Oliving Machine Operator/Techni estefani ID = [id number] for SERENA RANKIN POCT-GLUCOSE [id number] 16:53:00 Test Item Value Reference Range Interpretation Comments POC-GLUCOSE METER 217 mg/dL 70-110 H : TESTED A T [facility] 6720 (BEAKER) (test code = [facility], 1538) 71927: Oliving Machine Operator/Techni estefani ID = [id number] for HU NTER, HIWITHA POCT-GLUCOSE [id number] 11:50:00 Test Item Value Reference Range Interpretation Comments POC-GLUCOSE METER 208 mg/dL 70-110 H : TESTED A T [facility] 6720 (BEAKER) (test code = DASIA Garcia [facility], 1538) 24109: Oliving Machine Operator/Techni estefani ID = [id number] for ENOCH WILLSON, ZOILA ANAEROBIC [id number] 10:57:00 Test Item Value Reference Range Interpretation Comments CULTURE (BEAKER) (test code A 4+ Prevotella bivia = 1095) POCT-GLUCOSE [id number] 07:24:00 Test Item Value Reference Range Interpretation Comments POC-GLUCOSE METER 231 mg/dL 70-110 H : TESTED A T [facility] 6720 (BEAKER) (test code = [facility], 1538) 01677: Oliving Machine Operator/Techni estefani ID = [id number] for ENOCH WILLSON, ESTEFANYWITHA BASIC METABOLIC [id number] 04:18:00 Test Item Value Reference Range Interpretation [...] S NOT APPLICABLE FOR DIALYSIS PATIEN TS. Oliving Machine Operator ID - BASSEM [id number] 04:17:00 Test Item Value Reference Range Interpretation Comments PHOSPHORUS (BEAKER) (test code = 5.1 mg/dL 2.3-4.7 H 604) Oliving Machine Operator ID - BASSEM [id number] 04:17:00 Test Item Value Reference Range Interpretation Comments MAGNESIUM (BEAKER) (test code = 2.4 mg/dL 1.6-2.6 627) Oliving Machine Operator ID Benjie LUEVANO WCBC W/PLT COUNT & AUTO [id number] 04:17:00 Test Item Value Reference Range Interpretation [...] PERCENT (BEAKER) (test code = 2801) POCT-GLUCOSE [id number] 00:03:00 Test Item Value Reference Range Interpretation Comments POC-GLUCOSE METER 245 mg/dL 70-110 H : TESTED A T [facility]20 (BEAKER) (test code = [facility], [facility]) 612[address]: Oliving Machine Operator/Techni estefani ID = [id number] for FRANCK SKELTON POCT-GLUCOSE [id number] 21:18:00 Test Item Value Reference Range Interpretation Comments POC-GLUCOSE METER 252 mg/dL 70-110 H : TESTED A T [facility] 6720 (BEAKER) (test code = [facility], [facility]) 69240: Oliving Machine Operator/Techni estefani ID = [id number] for DA KEIRY SAMO POCT-GLUCOSE [id number] 16:53:00 Test Item Value Reference Range Interpretation Comments POC-GLUCOSE METER 175 mg/dL 70-110 H : TESTED A T [facility] 6720 (BEAKER) (test code = [facility], [facility]8) 91557: Oliving Machine Operator/Techni estefani ID = [id number] for Do minguez, Isaías POCT-GLUCOSE [id number] 13:58:00 Test Item Value Reference Range Interpretation Comments POC-GLUCOSE METER 191 mg/dL 70-110 H : TESTED A T [facility] 6720 (BEAKER) (test code = [facility], 1538) 26340: Oliving Machine Operator/Techni estefani ID = [id number] for Do minguez, Isaías POCT-GLUCOSE [id number] 11:18:00 Test Item Value Reference Range Interpretation Comments POC-GLUCOSE METER 88 mg/dL 70-110 : TESTED A T [facility] 6720 (BEAKER) (test code = [place], 1538) 27373: Oliving Machine Operator/Techni estefani ID = [id number] for CORNELIUS SANDY POCT-GLUCOSE [id number] 07:59:00 Test Item Value Reference Range Interpretation Comments POC-GLUCOSE METER 112 mg/dL 70-110 H : TESTED A T [facility] 6720 (BEAKER) (test code = [facility], 1538) 10079: Oliving Machine Operator/Techni estefani ID = [id number] for CORNELIUS MAO BASIC METABOLIC [id number] 07:35:00 Test Item Value Reference Range Interpretation [...] S NOT APPLICABLE FOR DIALYSIS PATIEN TS. Oliving Machine Operator ID - DANITZA [id number] 07:27:00 Test Item Value Reference Range Interpretation Comments PHOSPHORUS (BEAKER) (test code = 7.1 mg/dL 2.3-4.7 H 604) Oliving Machine Operator ID - DANITZA [id number] 07:27:00 Test Item Value Reference Range Interpretation Comments MAGNESIUM (BEAKER) (test code = 2.5 mg/dL 1.6-2.6 627) Oliving Machine Operator ID - DANITZA LCBC W/PLT COUNT & AUTO [id number] 06:36:00 Test Item Value Reference Range Interpretation [...] PERCENT (BEAKER) (test code = 2801) POCT-GLUCOSE [id number] 21:42:00 Test Item Value Reference Range Interpretation Comments POC-GLUCOSE METER 171 mg/dL 70-110 H : TESTED A T [facility] 6720 (BEAKER) (test code = [facility], 1538) 75770: Oliving Machine Operator/Techni estefani ID = [id number] for DA KEIRY SAMO POCT-GLUCOSE [id number] 16:53:00 Test Item Value Reference Range Interpretation Comments POC-GLUCOSE METER 219 mg/dL 70-110 H : TESTED A T [facility] 6720 (BEAKER) (test code = [facility], 1538) 88589: Oliving Machine Operator/Techni estefani ID = [id number] for OR PHEY, DALE POCT-GLUCOSE [id number] 12:15:00 Test Item Value Reference Range Interpretation Comments POC-GLUCOSE METER 181 mg/dL 70-110 H : TESTED A T [facility] 6720 (BEAKER) (test code = [facility], 1538) 71526: Oliving Machine Operator/Techni estefani ID = [id number] for OR PHEY, DALE POCT-GLUCOSE [id number] 08:04:00 Test Item Value Reference Range Interpretation Comments POC-GLUCOSE METER 125 mg/dL 70-110 H : TESTED A T [facility] 6720 (BEAKER) (test code = [facility], 1538) 01278: Oliving Machine Operator/Techni estefani ID = [id number] for OR PHEY, DALE BASIC METABOLIC [id number] 05:56:00 Test Item Value Reference Range Interpretation [...] S NOT APPLICABLE FOR DIALYSIS PATIEN TS. Oliving Machine Operator ID - DANITZA [id number] 05:16:00 Test Item Value Reference Range Interpretation Comments PHOSPHORUS (BEAKER) (test code = 5.7 mg/dL 2.3-4.7 H 604) Oliving Machine Operator ID - PIZAYRA [id number] 05:16:00 Test Item Value Reference Range Interpretation Comments MAGNESIUM (BEAKER) (test code = 2.4 mg/dL 1.6-2.6 627) Oliving Machine Operator ID - DANITZA LCBC W/PLT COUNT & AUTO [id number] 05:04:00 Test Item Value Reference Range Interpretation [...] PERCENT (BEAKER) (test code = 2801) POCT-GLUCOSE [id number] 21:56:00 Test Item Value Reference Range Interpretation Comments POC-GLUCOSE METER 182 mg/dL 70-110 H : TESTED A T [facility] 6720 (BEAKER) (test code = [facility], 153) 49941: Oliving Machine Operator/Techni estefani ID = [id number] for Hi ll, Cynthia POCT-GLUCOSE [id number] 17:09:00 Test Item Value Reference Range Interpretation Comments POC-GLUCOSE METER 260 mg/dL 70-110 H : TESTED A T [facility] 6720 (BEAKER) (test code = [facility], 1538) 97526: Oliving Machine Operator/Techni estefani ID = [id number] for OR PHEY, DALE POCT-GLUCOSE [id number] 12:02:00 Test Item Value Reference Range Interpretation Comments POC-GLUCOSE METER 244 mg/dL 70-110 H : TESTED A T [facility] 6720 (BEAKER) (test code = [facility], 1538) 77749: Oliving Machine Operator/Techni estefani ID = [id number] for OR PHEY, DALE BASIC METABOLIC [id number] 08:22:00 Test Item Value Reference Range Interpretation [...] S NOT APPLICABLE FOR DIALYSIS PATIEN TS. Oliving Machine Operator ID - [id number] 07:57:00 Test Item Value Reference Range Interpretation Comments PHOSPHORUS (BEAKER) (test code = 5.4 mg/dL 2.3-4.7 H 604) Oliving Machine Operator ID - [id number] 07:57:00 Test Item Value Reference Range Interpretation Comments MAGNESIUM (BEAKER) (test code = 2.3 mg/dL 1.6-2.6 627) Oliving Machine Operator ID - LMPOCT-GLUCOSE [id number] 07:55:00 Test Item Value Reference Range Interpretation Comments POC-GLUCOSE METER 154 mg/dL 70-110 H : TESTED A T [facility] 6720 (BEAKER) (test code = [facility] [place], 1538) 59108: Oliving Machine Operator/Techni estefani ID = [id number] for OR DALE URRUTIA CBC W/PLT COUNT & AUTO [id number] 06:10:00 Test Item Value Reference Range Interpretation [...] (BEAKER) (test code = 2801) VANCOMYCIN LEVEL, [id number] 06:06:00 Test Item Value Reference Range Interpretation Comments VANCOMYCIN RANDOM (BEAKER) (test 15.8 ug/mL code = 523) Reference Range: No NormalsOperator ID - LMPOCT-GLUCOSE [id number] 21:02:00 Test Item Value Reference Range Interpretation Comments POC-GLUCOSE METER 231 mg/dL 70-110 H : TESTED A T [facility] 6720 (BEAKER) (test code = [facility], 1538) 54572: Oliving Machine Operator/Techni estefani ID = [id number] for PE JOEL RUIZLO POCT-GLUCOSE [id number] 17:06:00 Test Item Value Reference Range Interpretation Comments POC-GLUCOSE METER 227 mg/dL 70-110 H : TESTED A T [facility] 6720 (BEAKER) (test code = [facility], 1538) 93407: Oliving Machine Operator/Techni estefani ID = [id number] for OR PHEY, DALE POCT-GLUCOSE [id number] 12:13:00 Test Item Value Reference Range Interpretation Comments POC-GLUCOSE METER 147 mg/dL 70-110 H : TESTED A T [facility] 6720 (BEAKER) (test code = [facility], 1538) 17815: Oliving Machine Operator/Techni estefani ID = [id number] for OR PHEY, DALE POCT-GLUCOSE [id number] 11:39:00 Test Item Value Reference Range Interpretation Comments POC-GLUCOSE METER 138 mg/dL 70-110 H : TESTED A T [facility] 6720 (BEAKER) (test code = [facility], 1538) 98041: Oliving Machine Operator/Techni estefani ID = [id number] for Sa arabella Weller Izaiah Kirkland TISSUE [id number] 09:01:00Surgical Pathology Report Case: [id number] Authorizing Provider: Star Cloud DPM Collected: 06/19/2019 11:18 AM Ordering Location: [facility] PERIOPERATIVE Received: 06/19/2019 11:51 AM SERVICES Pathologist: Jonathan Hutchison MD Specimen: Foot, Right, right forefoot PART A RIGHT FOOT, TRANSMETATARSAL AMPUTATION:GANGRENOUS NECROSIS OF SKIN AND SOFT TISSUE.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 Signing Pathologist Direct Phone Line: [phone] signed by Jonathan Hutchison MD on 06/22/2019 at 9:01 [id number], [id number] diagnosis: Gangrene, nonhealing wound of right heelA. Right footReceived in formalin labeled with the patient's name, accession number and "right foot" is a 9.5 x 9.0 x 3.0 cm transmetatarsal amputation displaying digits 1, 4 and 5. The skin is gardner-pink and displays a 5.0 x 4.5 cm green-black ulcerated lesion at the previous site of amputation that is involving the entire 4th digit, and is abutting the skin and soft tissue margin (inked blue). The underlying affected bone is red-pink, trabeculated and firm. All three digits display gardner-yellow thickened nails. Bath Steward/Stewardess sections are submitted as follows:Section code: A1, skin and soft tissue margin en faceA2, previous site of amputationA3, skin lesion and underlying affected bone following decalcificationA4-A5, bone margin enface following decalcificationPA/pl PERFORMED.[facility], Department of Pathology, [address] [place] [address], [facility], [facility] of Pathology, [address] [place] [address] 71053, [facility]gjpbAd[facility], Department of Pathology, [address] [place] [address] 25765, EYIY-GLUCOSE [id number] 08:12:00 Test Item Value Reference Range Interpretation Comments POC-GLUCOSE METER 123 mg/dL 70-110 H : TESTED A T [facility] 6720 (BEAKER) (test code = [facility], 1538) 39329: Oliving Machine Operator/Techni estefani ID = [id number] for Sa arabella Weller Izaiah Isael BASIC METABOLIC [id number] 06:52:00 Test Item Value Reference Range Interpretation [...] S NOT APPLICABLE FOR DIALYSIS PATIEN TS. Oliving Machine Operator ID - BASSEM [id number] 06:51:00 Test Item Value Reference Range Interpretation Comments PHOSPHORUS (BEAKER) (test code = 6.3 mg/dL 2.3-4.7 H 604) Oliving Machine Operator ID - BASSEM [id number] 06:51:00 Test Item Value Reference Range Interpretation Comments MAGNESIUM (BEAKER) (test code = 2.5 mg/dL 1.6-2.6 627) Oliving Machine Operator ID - BASSEM WCBC W/PLT COUNT & AUTO [id number] 06:32:00 Test Item Value Reference Range Interpretation [...] (BEAKER) (test code = 2801) VANCOMYCIN LEVEL, [id number] 06:10:00 Test Item Value Reference Range Interpretation Comments VANCOMYCIN RANDOM (BEAKER) (test 19.5 ug/mL code = 523) Reference Range: No NormalsOperator ID - DBPOCT-GLUCOSE [id number] 21:39:00 Test Item Value Reference Range Interpretation Comments POC-GLUCOSE METER 212 mg/dL 70-110 H : TESTED A T [facility] 6720 ([employer]) (test code = [facility] [employer] [facility], 1538) 01689: Oliving Machine Operator/Techni estefani ID = [id number] for SALLY MIRANDA CARMELADESMONDALFREDO POCT-GLUCOSE [id number] 17:03:00 Test Item Value Reference Range Interpretation Comments POC-GLUCOSE METER 192 mg/dL 70-110 H : TESTED A T [facility] 6720 ([employer]) (test code = [facility], 1538) 19688: Oliving Machine Operator/Techni estefani ID = [id number] for ZOILA SILVA POCT-GLUCOSE [id number] 12:20:00 Test Item Value Reference Range Interpretation Comments POC-GLUCOSE METER 191 mg/dL 70-110 H : TESTED A T [facility] 6720 (BEAKER) (test code = [facility] [place], 1538) 09805: Oliving Machine Operator/Techni estefani ID = [id number] for CLAUDIA FONTANA SURGICALLY OBTAINED CULTURE + GRAM [id number] 11:27:00 Test Item Value Reference Range Interpretation Comments CULTURE (BEAKER) (test code No growth = 1095) GRAM STAIN RESULT (BEAKER) 3+ WBCs (test code = 1123) GRAM STAIN RESULT (BEAKER) No organisms seen (test code = 03478) SPIN/CONCENTRATION [id number] 08:46:00 Test Item Value Reference Range Interpretation Comments CONCENTRATION CHARGED (BEAKER) (test Done code = 2657) POCT-GLUCOSE [id number] 08:19:00 Test Item Value Reference Range Interpretation Comments POC-GLUCOSE METER 134 mg/dL 70-110 H : TESTED A T [facility] 6720 (BEAKER) (test code = [facility] [place], 1538) 22936: Oliving Machine Operator/Techni estefani ID = [id number] for ZOILA SILVA BASIC METABOLIC [id number] 04:44:00 Test Item Value Reference Range Interpretation [...] S NOT APPLICABLE FOR DIALYSIS PATIEN TS. Oliving Machine Operator ID - JAQUELINE [id number] 03:56:00 Test Item Value Reference Range Interpretation Comments PHOSPHORUS (BEAKER) (test code = 6.2 mg/dL 2.3-4.7 H 604) Oliving Machine Operator ID - JAQUELINE [id number] 03:56:00 Test Item Value Reference Range Interpretation Comments MAGNESIUM (BEAKER) (test code = 2.3 mg/dL 1.6-2.6 627) Oliving Machine Operator ID - JAQUELINE MCBC W/PLT COUNT & AUTO [id number] 03:44:00 Test Item Value Reference Range Interpretation [...] PERCENT (BEAKER) (test code = 2801) POCT-GLUCOSE [id number] 20:47:00 Test Item Value Reference Range Interpretation Comments POC-GLUCOSE METER 234 mg/dL 70-110 H : TESTED A T [facility] 6720 (BEAKER) (test code = [facility], 153) 52226: Oliving Machine Operator/Techni estefani ID = [id number] for EA GLIN, JALISSIA POCT-GLUCOSE [id number] 17:12:00 Test Item Value Reference Range Interpretation Comments POC-GLUCOSE METER 192 mg/dL 70-110 H : TESTED A T [facility] 6720 (BEAKER) (test code = [facility], 153) 94030: Oliving Machine Operator/Techni estefani ID = [id number] for HU NTER, HIWITHA POCT-GLUCOSE [id number] 12:35:00 Test Item Value Reference Range Interpretation Comments POC-GLUCOSE METER 138 mg/dL 70-110 H : TESTED A T [facility] 6720 (BEAKER) (test code = [facility], 1538) 84567: Oliving Machine Operator/Techni estefani ID = [id number] for HU NTER, HIWITHA POCT-GLUCOSE [id number] 10:12:00 Test Item Value Reference Range Interpretation Comments POC-GLUCOSE METER 101 mg/dL 70-110 : TESTED A T [facility] 6720 (BEAKER) (test code = [facility], 1538) 71141: Oliving Machine Operator/Techni estefani ID = [id number] for Bassem Desai POCT-GLUCOSE [id number] 08:51:00 Test Item Value Reference Range Interpretation Comments POC-GLUCOSE METER 96 mg/dL 70-110 : TESTED A T [facility] 6720 (BEAKER) (test code = D[facility], 1538) 25609: Oliving Machine Operator/Techni estefani ID = [id number] for Bassem House BASIC METABOLIC [id number] 05:04:00 Test Item Value Reference Range Interpretation [...] S NOT APPLICABLE FOR DIALYSIS PATIEN TS. Oliving Machine Operator ID - PIZAYRA LVANCOMYCIN LEVEL, [id number] 04:56:00 Test Item Value Reference Range Interpretation Comments VANCOMYCIN RANDOM (BEAKER) (test 18.7 ug/mL code = 523) Reference Range: No NormalsOperator ID - PIZAYRA [id number] 04:49:00 Test Item Value Reference Range Interpretation Comments PHOSPHORUS (BEAKER) (test code = 8.4 mg/dL 2.3-4.7 H 604) Oliving Machine Operator ID - PIZAYRA [id number] 04:49:00 Test Item Value Reference Range Interpretation Comments MAGNESIUM (BEAKER) (test code = 2.5 mg/dL 1.6-2.6 627) Oliving Machine Operator ID - PIAYA LCBC W/PLT COUNT & AUTO [id number] 04:22:00 Test Item Value Reference Range Interpretation [...] code = 2801) RAD, FOOT, 2 VIEWS, [id number] 22:40:00Reason for exam:->post op TMA rightFINAL REPORT CLINICAL HISTORY: Postop transmetatarsal amputation COMPARISON: 06/14/2019 FINDINGS: 2 views of the right foot are submitted. Bandage artifact overlies the region of interest. 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 There is an expected postoperative appearance. Vascular calcifications are presentin the lower leg, ankle and foot. A small plantar calcaneal spur is present. There is no radiopaque foreign body. Signed: Mirta Alex MDReport Verified Date/Time: 06/19/2019 22:40:02 POCT-GLUCOSE [id number] 21:19:00 Test Item Value Reference Range Interpretation Comments POC-GLUCOSE METER 221 mg/dL 70-110 H : TESTED A T [facility] 6720 (BEAKER) (test code = [facility] [employer], 1538) 40393: Oliving Machine Operator/Techni estefani ID = [id number] for DA VIS, KAVYA POCT-GLUCOSE [id number] 21:06:00 Test Item Value Reference Range Interpretation Comments POC-GLUCOSE METER 214 mg/dL 70-110 H : TESTED A T [facility] 6720 (BEAKER) (test code = [facility] [employer], 1538) 10586: Oliving Machine Operator/Techni estefani ID = [id number] for BRANDI HN, BLESSING POCT-GLUCOSE [id number] 21:05:00 Test Item Value Reference Range Interpretation Comments POC-GLUCOSE METER 131 mg/dL 70-110 H : TESTED A T [facility] 6720 (BEAKER) (test code = [facility], 1538) 00234: Oliving Machine Operator/Techni estefani ID = [id number] for BRANDI HN, BLESSING POCT-GLUCOSE [id number] 21:05:00 Test Item Value Reference Range Interpretation Comments POC-GLUCOSE METER 131 mg/dL 70-110 H : TESTED A T [facility] 6720 (BEAKER) (test code = [facility], 1538) 34420: Oliving Machine Operator/Techni estefani ID = [id number] for BLESSING TUTTLE POCT-GLUCOSE [id number] 12:01:00 Test Item Value Reference Range Interpretation Comments POC-GLUCOSE METER 135 mg/dL 70-110 H : TESTED A T [facility] 6720 (BEAKER) (test code = [facility], 1538) 39073: Oliving Machine Operator/Techni estefani ID = [id number] for GABRIELA OLMSTEAD POCT-GLUCOSE [id number] 09:10:00 Test Item Value Reference Range Interpretation Comments POC-GLUCOSE METER 200 mg/dL 70-110 H : TESTED A T [facility] 6720 (BEAKER) (test code = [facility], 1538) 48622: Oliving Machine Operator/Techni estefani ID = [id number] for FRANCK SKELTON CBC W/PLT COUNT & AUTO [id number] 05:34:00 Test Item Value Reference Range Interpretation [...] (BEAKER) (test code = 2801) BASIC METABOLIC [id number] 05:28:00 Test Item Value Reference Range Interpretation [...] S NOT APPLICABLE FOR DIALYSIS PATIEN TS. Oliving Machine Operator ID - BASSEM [id number] 05:27:00 Test Item Value Reference Range Interpretation Comments PHOSPHORUS (BEAKER) (test code = 6.7 mg/dL 2.3-4.7 H 604) Oliving Machine Operator ID - BASSEM [id number] 05:27:00 Test Item Value Reference Range Interpretation Comments MAGNESIUM (BEAKER) (test code = 2.3 mg/dL 1.6-2.6 627) Oliving Machine Operator ID - BASSEM WVANCOMYCIN LEVEL, [id number] 05:25:00 Test Item Value Reference Range Interpretation Comments VANCOMYCIN RANDOM (BEAKER) (test 21.5 ug/mL code = 523) Reference Range: No NormalsOperator ID Benjie LUEVANO WPOCT-GLUCOSE [id number] 17:28:00 Test Item Value Reference Range Interpretation Comments POC-GLUCOSE METER 173 mg/dL 70-110 H : TESTED A T [facility] 6720 (BEAKER) (test code = [facility], 1538) [id number]: Oliving Machine Operator/Techni estefani ID = [id number] for OR PHEY, DALE POCT-GLUCOSE [id number] 14:19:00 Test Item Value Reference Range Interpretation Comments POC-GLUCOSE METER 133 mg/dL 70-110 H : TESTED A T [facility] 6720 (BEAKER) (test code = [facility], 1538) [id number]: Oliving Machine Operator/Techni estefani ID = [id number] for OR PHEY, DALE POCT-GLUCOSE [id number] 10:35:00 Test Item Value Reference Range Interpretation Comments POC-GLUCOSE METER 119 mg/dL 70-110 H : TESTED A T [facility] 6720 (BEAKER) (test code = [place] [facility], 1538) [address]43: Oliving Machine Operator/Techni estefani ID = [id number] for Po meilssa Sonya CBC W/PLT COUNT & AUTO [id number] 05:31:00 Test Item Value Reference Range Interpretation [...] (BEAKER) (test code = 2801) BASIC METABOLIC [id number] 05:17:00 Test Item Value Reference Range Interpretation [...] S NOT APPLICABLE FOR DIALYSIS PATIEN TS. Oliving Machine Operator ID - JAQUELINE [id number] 05:16:00 Test Item Value Reference Range Interpretation Comments PHOSPHORUS (BEAKER) (test code = 7.5 mg/dL 2.3-4.7 H 604) Oliving Machine Operator ID - JAQUELINE [id number] 05:16:00 Test Item Value Reference Range Interpretation Comments MAGNESIUM (BEAKER) (test code = 2.4 mg/dL 1.6-2.6 627) Oliving Machine Operator ID - JAQUELINE MVANCOMYCIN LEVEL, [id number] 05:04:00 Test Item Value Reference Range Interpretation Comments VANCOMYCIN TROUGH (BEAKER) (test 25.9 ug/mL 10.0-20.0 H code = 522) Oliving Machine Operator ID - JAQUELINE MPOCT-GLUCOSE [id number] 21:00:00 Test Item Value Reference Range Interpretation Comments POC-GLUCOSE METER 148 mg/dL 70-110 H : TESTED A T [facility] 6720 (BEAKER) (test code = [place], 1538) 72336: Oliving Machine Operator/Techni estefani ID = [id number] for SERENA RANKIN POCT-GLUCOSE [id number] 19:14:00 Test Item Value Reference Range Interpretation Comments POC-GLUCOSE METER 137 mg/dL 70-110 H : TESTED A T [facility] 6720 (BEAKER) (test code = [facility], 1538) 95536: Oliving Machine Operator/Techni estefani ID = [id number] for CAMILLE BETTS POCT-GLUCOSE [id number] 17:46:00 Test Item Value Reference Range Interpretation Comments POC-GLUCOSE METER 205 mg/dL 70-110 H : TESTED A T [facility] 6720 (BEAKER) (test code = [facility], 1538) 32856: Oliving Machine Operator/Techni estefani ID = [id number] for CAMILLE BETTS POCT-GLUCOSE [id number] 17:05:00 Test Item Value Reference Range Interpretation Comments POC-GLUCOSE METER 197 mg/dL 70-110 H : TESTED A T [facility] 6720 (BEAKER) (test code = [facility], 1538) 76303: Oliving Machine Operator/Techni estefani ID = [id number] for CAMILLE BETTS BASIC METABOLIC [id number] 05:57:00 Test Item Value Reference Range Interpretation [...] S NOT APPLICABLE FOR DIALYSIS PATIEN TS. Oliving Machine Operator ID - PIAYA [id number] 05:54:00 Test Item Value Reference Range Interpretation Comments PHOSPHORUS (BEAKER) (test code = 6.2 mg/dL 2.3-4.7 H 604) Oliving Machine Operator ID Benjie BOSCH [id number] 05:54:00 Test Item Value Reference Range Interpretation Comments MAGNESIUM (BEAKER) (test code = 2.2 mg/dL 1.6-2.6 627) Oliving Machine Operator ID Benjie BOSCH LCBC W/PLT COUNT & AUTO [id number] 05:44:00 Test Item Value Reference Range Interpretation [...] PERCENT (BEAKER) (test code = 2801) POCT-GLUCOSE [id number] 21:37:00 Test Item Value Reference Range Interpretation Comments POC-GLUCOSE METER 262 mg/dL 70-110 H : TESTED A T [facility] 6720 ([facility]) (test code = [facility], 153) 09036: Oliving Machine Operator/Techni estefani ID = [id number] for DA KEIRY SMAO POCT-GLUCOSE [id number] 16:44:00 Test Item Value Reference Range Interpretation Comments POC-GLUCOSE METER 203 mg/dL 70-110 H : TESTED A T [facility] 6720 ([facility]) (test code = [facility], 153) 38438: Oliving Machine Operator/Techni estefani ID = [id number] for NATE MONROY POCT-GLUCOSE [id number] 12:05:00 Test Item Value Reference Range Interpretation Comments POC-GLUCOSE METER 233 mg/dL 70-110 H : TESTED A T [facility] 6720 ([facility]) (test code = [facility], 153) 23444: Oliving Machine Operator/Techni estefani ID = [id number] for HU NTER, HIWITHA POCT-GLUCOSE [id number] 08:18:00 Test Item Value Reference Range Interpretation Comments POC-GLUCOSE METER 146 mg/dL 70-110 H : TESTED A T [facility] 6720 ([facility]) (test code = [facility], 153) 00158: Oliving Machine Operator/Techni estefani ID = [id number] for HU NTER, HIWITHA CBC W/PLT COUNT & AUTO [id number] 07:32:00 Test Item Value Reference Range Interpretation [...] CONCENTRATION Adequate (CELLAVISION)(BEAKER) (test code = 3438) Oliving Machine Operator ID - Daily OverholtUser comments: Slide comments:BASIC [...] S NOT APPLICABLE FOR DIALYSIS PATIEN TS. Oliving Machine Operator ID - JAQUELINE [id number] 06:29:00 Test Item Value Reference Range Interpretation Comments PHOSPHORUS (BEAKER) (test code = 4.9 mg/dL 2.3-4.7 H 604) Oliving Machine Operator ID - JAQUELINE [id number] 06:29:00 Test Item Value Reference Range Interpretation Comments MAGNESIUM (BEAKER) (test code = 2.2 mg/dL 1.6-2.6 627) Oliving Machine Operator ID - JAQUELINE MVANCOMYCIN LEVEL, [id number] 06:23:00 Test Item Value Reference Range Interpretation Comments VANCOMYCIN RANDOM (BEAKER) (test 31.1 ug/mL code = 523) Reference Range: No NormalsOperator ID - JAQUELINE MPOCT-GLUCOSE [id number] 21:18:00 Test Item Value Reference Range Interpretation Comments POC-GLUCOSE METER 233 mg/dL 70-110 H : TESTED A T [facility] 6720 ([facility]) (test code = [facility], 153) 78115: Oliving Machine Operator/Techni estefani ID = [id number] for DA VIS, KAVYA POCT-GLUCOSE [id number] 17:24:00 Test Item Value Reference Range Interpretation Comments POC-GLUCOSE METER 252 mg/dL 70-110 H : TESTED A T [facility] 6720 (BEAKER) (test code = [facility], 153) 73830: Oliving Machine Operator/Techni estefani ID = [id number] for HU NTER, HIWITHA POCT-GLUCOSE [id number] 17:24:00 Test Item Value Reference Range Interpretation Comments POC-GLUCOSE METER 124 mg/dL 70-110 H : TESTED A T [facility] 6720 (BEAKER) (test code = [facility], 153) 37252: Oliving Machine Operator/Techni estefani ID = [id number] for HU NTER, HIWITHA [id number] 12:41:00 Test Item Value Reference Range Interpretation Comments ACTIVATED CLOTTING TIME 241 sec : 74 -137 seconds, (BEAKER) (test code = Baseli ne: TESTED AT 441) [facility] [address] [facility], 770 30: Oliving Machine Operator/Techni estefani ID = [id number] for CRYSTAL SHAH HEPATITIS B SURFACE [id number] 04:57:00 Test Item Value Reference Range Interpretation Comments HEPATITIS B SURFACE ANTIGEN (2) Nonreactive Nonreactive (BEAKER) (test code = 2585) Oliving Machine Operator ID - LMBASIC METABOLIC [id number] 04:38:00 Test Item Value Reference Range Interpretation [...] S NOT APPLICABLE FOR DIALYSIS PATIEN TS. Oliving Machine Operator ID - BASSEM [id number] 04:37:00 Test Item Value Reference Range Interpretation Comments PHOSPHORUS (BEAKER) (test code = 5.6 mg/dL 2.3-4.7 H 604) Oliving Machine Operator ID - BASSEM [id number] 04:37:00 Test Item Value Reference Range Interpretation Comments MAGNESIUM (BEAKER) (test code = 2.2 mg/dL 1.6-2.6 627) Oliving Machine Operator ID - BASSEM WCBC W/PLT COUNT & AUTO [id number] 04:34:00 Test Item Value Reference Range Interpretation [...] PERCENT (BEAKER) (test code = 2801) POCT-GLUCOSE [id number] 22:31:00 Test Item Value Reference Range Interpretation Comments POC-GLUCOSE METER 203 mg/dL 70-110 H : TESTED A T [facility] 6720 (BEAKER) (test code [facility], = 1538) 38583: Oliving Machine Operator/Techni estefani ID = [id number] for Emma Leyva POCT-GLUCOSE [id number] 21:30:00 Test Item Value Reference Range Interpretation Comments POC-GLUCOSE METER 205 mg/dL 70-110 H : TESTED A T [facility] 6720 (BEAKER) (test code = [facility], 1538) 74094: Oliving Machine Operator/Techni estefani ID = [id number] for ARLEN ADAN POCT-GLUCOSE [id number] 16:56:00 Test Item Value Reference Range Interpretation Comments POC-GLUCOSE METER 210 mg/dL 70-110 H : TESTED A T [facility] 6720 (BEAKER) (test code = [facility], 1538) 50105: Oliving Machine Operator/Techni estefani ID = [id number] for MATEUS ROBLES RAD, FOOT, MIN 3 VIEWS, [id number] 15:36:00Reason for exam:->Right foot gangrene, 2nd toe [...] amputations. Signed: Sonny Perez MDReport Verified Date/Time: 0 06/14/2019 15:36:18 Reading Location: [facility] C013X Ortho Consult Reading Room BASI METABOLIC [id number] 15:34:00 Test Item Value Reference Range Interpretation [...] S NOT APPLICABLE FOR DIALYSIS PATIEN TS. Oliving Machine Operator ID - [id number] 15:33:00 Test Item Value Reference Range Interpretation Comments PHOSPHORUS (BEAKER) (test code = 4.8 mg/dL 2.3-4.7 H 604) Oliving Machine Operator ID - [id number] 15:33:00 Test Item Value Reference Range Interpretation Comments MAGNESIUM (BEAKER) (test code = 2.2 mg/dL 1.6-2.6 627) Oliving Machine Operator ID - BSCBC W/PLT COUNT & AUTO [id number] 15:20:00 Test Item Value Reference Range Interpretation [...] PERCENT (BEAKER) (test code = 2801) POCT-GLUCOSE [id number] 12:22:00 Test Item Value Reference Range Interpretation Comments POC-GLUCOSE METER 242 mg/dL 70-110 H : TESTED A T [facility] 6720 (BEAKER) (test code = [facility], 1538) 90500: Oliving Machine Operator/Techni estefani ID = [id number] for MATEUS ROBLES POCT-GLUCOSE [id number] 12:16:00 Test Item Value Reference Range Interpretation Comments POC-GLUCOSE METER 206 mg/dL 70-110 H : TESTED A T [facility] 6720 (BEAKER) (test code = [facility], 1538) 56107: Oliving Machine Operator/Techni estefani ID = [id number] for MATEUS ROBLESY
[2021-10-21 14:21] LABS: Absolute Lymphocytes (CBC) 1.2 K/uL (0.7-4.9); Lymphocytes % 13.6 % (15.3-44.8); MCV 93.7 fL (80-100); MPV 8.8 fL (7.6-11.3); RBC Red Blood Cell Count 3.84 M/uL (4.33-5.43)
[2021-10-21 14:25] LABS: Protime INR 1.07
--- NOTE | 2021-10-21 14:45 | ER ---
Nurse's Notes [facility] Name: Dayton Grijalva Age: 60 yrs Sex: Male : 1960 Arrival Date: 10/21/2021 Time: 12:35 Bed 13 Private MD: Diagnosis: Syncope;End stage renal disease;Essential (primary) hypertension Presentation: 10/21 12:36 Chief complaint: Patient states: felt like fainting. ja4 13:41 Onset of symptoms was October 21, 2021. ja4 13:41 Acuity: SAMARA 3 ja4 13:41 Method Of Arrival: EMS ja4 17:11 Coronavirus screen: Vaccine status: Patient reports receiving the 2nd dose of the covid ll1 vaccine. Client denies travel out of the [place] in the last 14 days. At this time, the client does not indicate any symptoms associated with coronavirus-19. Ebola Screen: Patient denies travel to an Ebola-affected area in the 21 days before illness onset. Initial Sepsis Screen: Does the patient meet any 2 criteria? No. Patient's initial sepsis screen is negative. Does the patient have a suspected source of infection? No. Patient's initial sepsis screen is negative. Risk Assessment: Do you want to hurt yourself or someone else? Patient reports no desire to harm self or others. Triage Assessment: 13:37 General: Appears in no apparent distress. Behavior is cooperative, appropriate for age. ja4 Pain: Denies pain. Neuro: No deficits noted. 17:12 Neuro: Reports a syncopal episode. ll1 Historical: - Allergies: 13:37 No Known Allergies; ja4 - Immunization history:: Adult Immunizations up to date. - Social history:: Smoking status: unknown. Screenin:41 Nutritional screening: No deficits noted. Fall Risk Secondary diagnosis (15 points) ja4 impaired mobility, IV access (20 points). 17:10 Abuse screen: Denies threats or abuse. Tuberculosis screening: No symptoms or risk ll1 factors identified. Assessment: 13:41 General: Appears in no apparent distress. Behavior is calm, cooperative, appropriate ja4 for age. Neuro: No deficits noted. Level of Consciousness is awake, alert, obeys commands. Cardiovascular: No deficits noted. Respiratory: No deficits noted. 15:47 Reassessment: Patient is alert, oriented x 3, equal unlabored respirations, skin ja4 warm/dry/pink. Patient denies pain at this time. 17:04 Reassessment: No changes from previously documented assessment. Moved to Room 13 in ED. ll1 Report received from Belle Gamboa RN. Patient care assumed. 17:10 Cardiovascular: Rhythm is regular. ll1 22:43 Reassessment: report given to Kaur hoyt. ke1 Vital Signs: 13:39 BP 206 / 75; Pulse 62; Resp 16; Pulse Ox 97% ; Weight 94.5 kg; Height 6 ft. 1 in. ja4 (185.42 cm); 17:13 BP 182 / 79; Pulse 64; Resp 16; Temp 97.5; Pulse Ox 99% ; ll1 18:01 BP 192 / 51; Pulse 63; Resp 16; Pulse Ox 100% on R/A; kr3 13:39 Body Mass Index 27.49 (94.50 kg, 185.42 cm) ja4 ED Course: 12:35 Patient arrived in ED. bd 12:36 Adriel Gamboa RN is Primary Nurse. ja4 12:37 Richard Asif DO is Attending Physician. ms3 13:40 Arm band placed on left wrist. ja4 13:41 Triage completed. ja4 13:41 Patient has correct armband on for positive identification. Client placed on continuous ja4 cardiac and pulse oximetry monitoring. NIBP monitoring applied. metal fabricating supervisor on. 13:41 No provider procedures requiring assistance completed. ja4 14:44 Malik Huynh MD is Hospitalizing Provider. ms3 17:12 IV is patent, 20 R wrist. Patient admitted, IV remains in place. ll1 17:19 SARS RAPID Sent. kr3 Administered Medications: No medications were administered Medication: 17:13 VIS not applicable for this client. ll1 Point of Care Testin:12 see EMS run sheet ll1 Ranges: Outcome: 14:45 Decision to Hospitalize by Provider. ms3 17:11 Admitted to ER Hold. Please see [facility] for further documentation. ll1 17:11 Condition: stable 17:11 Instructed on the need for admit. 22:45 Patient left the ED. ke1 Signatures: Nuria Crawley Lynsay, RN RN ll1 Richard Asif DO DO ms3 Alpesh Chaney RN RN ke1 Nicolasa Blackwell RN RN kr3 Adriel Gamboa RN RN ja4 Corrections: (The following items were deleted from the chart) 13:37 PMHx: Diabetes - IDDM; 4 jaJaelyn 13:37 PMHx: Hypertension; selina jaJaelyn 13:37 PMHx: HD-MWF; selina Jaelyn 13:37 PSHx: open heart surgery; [facility] lee 13:37 PSHx: R foot partial amputation; selina ja4 18:21 18:01 BP 123 / 97; Pulse 86bpm; Resp 16bpm; Pulse Ox 99% RA; kr3 kr3 18:26 17:12 Patient admitted, IV remains in place. ll1 ll1
--- NOTE | 2021-10-21 14:45 | EDPHYS ---
Physician Documentation [facility] Name: Dayton Grijalva Age: 60 yrs Sex: Male : 1960 Arrival Date: 10/21/2021 Time: 12:35 Bed 13 Private MD: ED Physician Richard Asif HPI: 10/21 16:59 This 60 yrs old Male presents to ER via EMS with complaints of Syncope. ms3 16:59 The patient has experienced syncope, lost consciousness. Onset: The symptoms/episode ms3 began/occurred today. Duration: This was a single episode, that lasted an unknown period of time. Context: the episode(s) was witnessed, Dialysis center staff. Associated injury: The patient did not suffer any apparent associated injury. Associated signs and symptoms: The patient has no apparent associated signs or symptoms. Current symptoms: Currently, the patient is not experiencing any symptoms, the patient feels back to baseline. Per Dr Kelly patient has had 2 syncopal episodes earlier at dialysis. Patient had syncopal episode while in the dialysis waiting room this AM.. Historical: - Allergies: 13:37 No Known Allergies; ja4 - Immunization history:: Adult Immunizations up to date. - Social history:: Smoking status: unknown. ROS: 16:59 Constitutional: Negative for fever, and chills. Neck: Negative for injury, pain, and ms3 swelling, Cardiovascular: Negative for chest pain, and palpitations. Respiratory: Negative for shortness of breath, cough, wheezing, and pleuritic chest pain, Abdomen/GI: Negative for abdominal pain, nausea, vomiting, diarrhea, and constipation, MS/Extremity: Negative for injury and deformity, Skin: Negative for injury, rash, and discoloration. 16:59 All other systems are negative. Exam: 16:59 Constitutional: This is a well developed, well nourished patient who is awake, alert, ms3 and in no acute distress. Head/Face: Normocephalic, atraumatic. Neck: Trachea midline, no cervical lymphadenopathy. Supple, full range of motion without nuchal rigidity, or vertebral point tenderness. No Meningismus. Chest/axilla: Normal chest wall appearance and motion. Nontender with no deformity. Cardiovascular: Regular rate and rhythm with a normal S1 and S2. No gallops, murmurs, or rubs. Normal PMI, no JVD. No pulse deficits. Respiratory: Lungs have equal breath sounds bilaterally, clear to auscultation and percussion. No rales, rhonchi or wheezes noted. No increased work of breathing, no retractions or nasal flaring. Abdomen/GI: Soft, non-tender, with normal bowel sounds. No distension or tympany. No guarding or rebound. No evidence of tenderness throughout. Skin: Warm, dry with normal turgor. Normal color with no rashes, no lesions, and no evidence of cellulitis. Psych: Awake, alert, with orientation to person, place and time. Behavior, mood, and affect are within normal limits. 16:59 Musculoskeletal/extremity: Extremities: Left BKA. Vital Signs: 13:39 BP 206 / 75; Pulse 62; Resp 16; Pulse Ox 97% ; Weight 94.5 kg; Height 6 ft. 1 in. ja4 (185.42 cm); 17:13 BP 182 / 79; Pulse 64; Resp 16; Temp 97.5; Pulse Ox 99% ; ll1 18:01 BP 192 / 51; Pulse 63; Resp 16; Pulse Ox 100% on R/A; kr3 13:39 Body Mass Index 27.49 (94.50 kg, 185.42 cm) ja4 MDM: 13:07 Patient medically screened. ms3 16:59 Differential Diagnosis: cardiac arrhythmia, idiopathic syncope, seizure. Data reviewed: ms3 vital signs, nurses notes, lab test result(s), EKG, radiologic studies, and as a result, I will admit patient. Data interpreted: cardiac monitor technician: rate is 60 beats/min, rhythm is normal sinus rhythm, with no ectopy, Interpretation: normal rate, normal rhythm. Counseling: I had a detailed discussion with the patient and/or guardian regarding: the historical points, exam findings, and any diagnostic results supporting the discharge/admit diagnosis, lab results, radiology results, the need for outpatient follow up, to return to the emergency department if symptoms worsen or persist or if there are any questions or concerns that arise at home. ED course: Patient remains in stable condition at this time without complaints. 10/21 13:06 Order name: Basic Metabolic Panel ms3 10/21 13:06 Order name: CBC with Diff; Complete Time: 14:42 ms3 10/21 13:06 Order name: CPK ms3 10/21 13:06 Order name: Ckmb ms3 10/21 13:06 Order name: Hepatic Function ms3 10/21 13:06 Order name: Lipase ms3 10/21 13:06 Order name: Magnesium ms3 10/21 13:06 Order name: Protime (+inr); Complete Time: 14:42 ms3 10/21 13:06 Order name: Ptt, Activated; Complete Time: 14:42 ms3 10/21 15:01 Order name: Urine Dipstick-Ancillary EDMS 10/21 17:09 Order name: SARS RAPID bd 10/21 17:33 Order name: T4 Free EDMS 10/21 17:33 Order name: Thyroid Stimulating Hormone EDMS 10/21 17:59 Order name: SARS-COV-2 Antigen Rapid EDMS 10/21 13:06 Order name: EKG; Complete Time: 13:06 ms3 10/21 13:06 Order name: Cardiac monitoring; Complete Time: 14:39 ms3 10/21 13:06 Order name: EKG - Nurse/Tech; Complete Time: 14:39 ms3 10/21 13:06 Order name: IV Saline Lock; Complete Time: 14:39 ms3 10/21 13:06 Order name: Labs collected and sent; Complete Time: 14:39 ms3 10/21 13:06 Order name: NPO; Complete Time: 17:05 ms3 10/21 13:06 Order name: O2 Per Protocol; Complete Time: 14:39 ms3 10/21 13:06 Order name: O2 Sat Monitoring; Complete Time: 14:39 ms3 10/21 13:06 Order name: Urine Dipstick-Ancillary (obtain specimen); Complete Time: 15:30 ms3 10/21 13:27 Order name: Labs - recollect needed: recollect all tubes; Complete Time: 14:39 bd 10/21 20:57 Order name: Glucose, Ancillary Testing EDMS Administered Medications: No medications were administered Point of Care Testin:12 see EMS run sheet ll1 Ranges: Critical Glucose Levels:Adult <50 mg/dl or >400 mg/dl <40 mg/dl or >180 mg/dl Disposition Summary: 10/21/21 14:45 Hospitalization Ordered Hospitalization Status: Observation ms3 Provider: Malik Huynh ms3 Condition: Stable ms3 Problem: new ms3 Symptoms: are unchanged ms3 Bed/Room Type: Standard ms3 Location: Telemetry/MedSurg (observation)(10/21/21 22:23) cg Room Assignment: [facility](10/21/21 22:23) Diagnosis - Syncope ms3 - End stage renal disease ms3 - Essential (primary) hypertension ms3 Forms: - Medication Reconciliation Form ms3 - SBAR form ms3 Signatures: Dispatcher [employer] EDNuria Kramer Cindy, RN RN cg Tabitha Meadows RN RN ll1 Richard Asif DO DO ms3 Adriel Gamboa RN RN ja4 Corrections: (The following items were deleted from the chart) 13:38 13:37 PMHx: Diabetes - IDDM; ja4 ja4 13:38 13:37 PMHx: Hypertension; ja4 ja 13:38 13:37 PMHx: HD-MWF; 4 4 13:38 13:37 PSHx: open heart surgery; 4 [facility] 13:38 13:37 PSHx: R foot partial amputation; 4 [facility] 18:53 14:45 Telemetry/MedSurg (observation) ms3 bd 18:53 14:45 ms3 bd 22:23 18:53 [facility] ER HOLD bd cg 22:23 18:53 ERHOLD- bd cg
[2021-10-21 14:49] LABS: ALT/SGPT 23 U/L (12-78); AST/SGOT 19 U/L (15-37); Albumin 3.3 g/dL (3.4-5.0); Alkaline Phosphatase 82 U/L (45-117); BUN Blood Urea Nitrogen 73 mg/dL (7-18); Bicarbonate 21 mmol/L (21-32); Bilirubin Total 0.4 mg/dL (0.2-1.0); CKMB Creatine Kinase MB 3.4 ng/mL (1.0-3.6); Creatine Phosphokinase 157 U/L (39-308); Glomerular Filtration Rate 5 ml/min (=/>90); Glucose Level 113 mg/dL (74-106); Lipase 2758 U/L (73-393); Magnesium 2.4 mg/dL (1.8-2.4); Potassium 4.9 mmol/L (3.5-5.1); Protein, Total 7.2 g/dL (6.4-8.2); Sodium Level 136 mmol/L (136-145)
[2021-10-21 14:52] LABS: Bilirubin Direct < 0.1 mg/dL (0-0.2)
[2021-10-21 15:00] LABS: Urine Blood Trace-intact (Negative); Urine Glucose Trace (Negative); Urine Protein 2+ (Negative); Urine pH 7.5 (5.0-7.0)
[2021-10-21] MEDS ORDERED: ACETAMINOPHEN 500 MG TAB PO PRN (16:22)
[2021-10-21] MEDS ORDERED: ONDANSETRON 4 MG/2 ML VIAL IV PRN (16:22)
[2021-10-21] MEDS ORDERED: GUAIFENESIN/DM 5 ML UCUP PO PRN (16:27)
[2021-10-21] MEDS: INSULIN -REGULAR HUMAN 50 UNIT/0.5 ML ML SQ SCH ×2 (16:30→20:45)
[2021-10-21] MEDS ORDERED: HYDRALAZINE HCL 20 MG/ML VIAL IV PRN (16:30)
--- NOTE | 2021-10-21 16:32 | P.HP ---
Certification for Inpatient Patient admitted to: Observation With expected LOS: <2 Midnights Patient will require the following post-hospital care: None Practitioner: I am a practitioner with admitting privileges, knowledge of patient current condition, hospital course, and medical plan of care. Services: Services provided to patient in accordance with Admission requirements found in Title 42 Section 412.3 of the Code of Federal Regulations Patient History Date of Service: 10/21/21 Reason for admission: Syncope History of Present Illness: Patient is a 60-year-old male with a past medical history significant for hypertension, DM 2 with neuropathy, ESRD, hyperlipidemia, TUYET who presents with complaint of syncope while at dialysis. Patient has had similar episodes in the past and was recently seen in the hospital for syncope Patient denies any other signs and symptoms. Symptoms are aggravated or relieved by nothing. Patient was referred to come to the hospital by his principal associate Allergies No Known Allergies Allergy (Verified 02/27/18 11:04) Home medications list reviewed: Yes Home Medications: Gabapentin 300 mg PO DAILY 06/09/19 Atorvastatin Calcium [Lipitor] 40 mg PO BEDTIME 07/15/21 Calcium Acetate 3 tab PO TID 07/15/21 Ferrous Sulfate [Iron] 325 mg PO DAILY 07/15/21 Lisinopril [Zestril] 20 mg PO DAILY 07/15/21 carvediloL [Coreg*] 12.5 mg PO BID 30 Days #60 tab 07/17/21 - Past Medical/Surgical History Diabetic: Yes -: HTN -: DM, no insulin for over 1 month -: Neuropathy -: End-stage renal disease on dialysis -: BILATERAL TMA -: Transmet amputation left foot 2009 -: Back I&D 2016 x2 -: Cardiac bypass Psychosocial/ Personal History: Lives at home with his - Family History Mother -: GI disease Notes: Patient states that mother is in the hospital with a unknow GI problem Sister -: GI disease - Social History Alcohol use: No CD- Drugs: No Caffeine use: Yes Review of Systems General: Unremarkable Eyes: Unremarkable ENT: Unremarkable Respiratory: Unremarkable Cardiovascular: Unremarkable Gastrointestinal: Unremarkable Genitourinary: Unremarkable Musculoskeletal: Other, Unremarkable Integumentary: Unremarkable Neurological: Other (Syncope ) Lymphatics: Unremarkable Physical Examination - Physical Exam General: Alert, Oriented x3, Cooperative HEENT: Atraumatic, Normocephalic, PERRLA Neck: Supple, 2+ carotid pulse no bruit, JVD not distended Respiratory: Clear to auscultation bilaterally, Normal air movement Cardiovascular: No edema, Normal pulses, Regular rate/rhythm Capillary refill: <2 Seconds Gastrointestinal: Normal bowel sounds, Soft and benign Musculoskeletal: No clubbing, No swelling, No contractures, No erythema, Other (Partial foot amputation) Integumentary: No rashes, No breakdown, No significant lesion Neurological: Normal speech, Normal tone Lymphatics: No axilla or inguinal lymphadenopathy - Studies Laboratory Data (last 24 hrs) 10/21/21 14:05: PT 11.8, INR 1.07, APTT 27.5 10/21/21 14:05: WBC 8.70, Hgb 11.8 L, Hct 36.0 L, Plt Count 167 10/21/21 14:05: Sodium 136, Potassium 4.9, BUN 73 H, Creatinine 11.50 H*, Glucose 113 H, Magnesium 2.4, Total Bilirubin 0.4, AST 19, ALT 23, Alkaline Phosphatase 82, Lipase 2758 H Assessment and Plan - Plan -- Syncope. Likely secondary to arrhythmia. Patient recently had a negative carotid Doppler studies. Echocardiogram pending. Patient was referred to see a director telehealth from last admission for arrhythmia work-up but patient has not followed up with any director telehealth. We will get some orthostatic vital signs. Cardiology consulted. Telemetry to monitor for any significant arrhythmia. Will await further recommendations. --ESRD. Limousine Driver consulted. Further management per principal associate. --DM2 with neuropathy. BS monitoring with sliding scale insulin. Continue gabapentin for his neuropathy. --TUYET. Continue ferrous sulfate. --HLD. Continue statin. --Hypertension. Poorly controlled. Continue home medication and hydralazine as needed. --Right foot partial amputation. Continue supportive care --Hyperlipidemia. Continue statin. --DVT prophylaxis with heparin subQ Discharge Plan: Home Plan to discharge in: 48 Hours - Advance Directives Does patient have a Living Will: No Does patient have a Durable POA for Healthcare: No - Code Status/Comfort Care Code Status Assessed: Yes Code Status: Full Code Physician Review: Patient Assessed, Agree with Above Assessment and Plan Critical Care: No
[2021-10-21] MEDS: HEPARIN 5000 UNIT/ML 1 ML VIAL SQ SCH (17:00)
[2021-10-21] MEDS: ASPIRIN EC 81 MG TAB PO SCH (17:00)
[2021-10-21 17:32] LABS: Thyroid Stimulating Hormone 0.643 uIU/mL (0.360-3.740)
[2021-10-21 17:59] LABS: SARS-CoV-2 Antigen Rapid Res Negative (Negative)
[2021-10-21] MEDS ORDERED: HEPARIN 5000 UNIT/ML 1 ML VIAL ONE (20:33)
[2021-10-21] MEDS ORDERED: HYDRALAZINE HCL 20 MG/ML VIAL ONE (20:34)
[2021-10-21] MEDS ORDERED: ASPIRIN EC 81 MG TAB PO ONE (20:34)
[2021-10-21] MEDS ORDERED: MELATONIN 5 MG TABLET PO PRN (22:37)
[2021-10-21 23:09] VITALS: BMI 29.1
[2021-10-22] MEDS: HEPARIN 5000 UNIT/ML 1 ML VIAL SQ SCH ×3 (01:11→17:39)
[2021-10-22] MEDS: HYDROCODONE/APAP 5/325 MG TAB PO PRN ×2 (02:28→08:43)
[2021-10-22 04:03] LABS: Absolute Lymphocytes (CBC) 1.7 K/uL (0.7-4.9); Hematocrit 37.3 % (39.6-49.0); Lymphocytes % 18.2 % (15.3-44.8); MCV 93.3 fL (80-100); MPV 9.1 fL (7.6-11.3)
[2021-10-22 04:26] LABS: Potassium 4.6 mmol/L (3.5-5.1)
--- NOTE | 2021-10-22 06:25 | P.PN ---
Date of Service: 10/22/21 Subjective: ROS: 10 point ROS as noted above, otherwise negative Physical exam GEN: Alert, oriented, NAD HEENT: Normal conjunctiva, sclera anicteric CV: Regular rate and rhythm, no edema Pulm: Non-labored respirations on room air ABD: Soft, nontender, nondistended Neuro: Normal speech, normal affect Problem List Syncope, recurrent ESRD on HD Diabetes type 2diet controlled CAD status post CABG Hypertension syncope - ?vasovagal reportedly no drop in BP during or before/after episodes witnessed at dialysis neuro consulted MRI, eeg, echo done 2-3 months ago nephrology consulted - managing HD cardiology consulted, possible arrhythmia orthostatics sliding scale insulin continue home meds monitor telemetry Code: full Home: ~1 day Time Spent Managing Pts Care (In Minutes): 35
[2021-10-22] MEDS: INSULIN -REGULAR HUMAN 50 UNIT/0.5 ML ML SQ SCH ×4 (07:30→20:07)
[2021-10-22] MEDS: carvediloL 25 MG TAB PO SCH ×2 (08:42→17:38)
[2021-10-22] MEDS: ASPIRIN EC 81 MG TAB PO SCH (08:42)
[2021-10-22] MEDS ORDERED: ASPIRIN 81 MG CHEWABLE TABLET PO SCH (09:00)
[2021-10-22] MEDS ORDERED: ATORVASTATIN 40 MG TAB PO SCH (09:00)
[2021-10-22] MEDS ORDERED: GABAPENTIN 300 MG CAP PO SCH (09:00)
--- NOTE | 2021-10-22 13:20 | CON ---
Date of Consultation: 10/21/2021 Reason For Consultation: Elevated BUN and creatinine. History Of Present Illness: This is a 60-year-old gentleman, well known to me from dialysis with sig nificant past medical history of diabetes complicated with severe neuropathy and retinopathy, legally blind, hypertension, hyperlipidemia, end-stage renal disease, on hemodialysis, Tuesday, Tuesday, Fr castro at [facility], PAD, CAD status post CABG. The patient had recurrent episode of losing conscious even with normal blood sugar and blood pressure in the dialysis and out of the d ialysis, even at home. The patient at this time apparently was waiting outside in the lobby for the dialysis and the patient passed out with diaphoretic without any alarming symptoms of chest pain or a nything. Vital sign was stable and blood sugar was within normal limit. For that reason, the patien t was transferred to the ER. Upon arrival to the ER, the patient completely recovered, not recalled any symptoms around the episode. The patient admitted for further evaluation. Primary lab showed an emia and acidosis. For that reason, we have been consulted. The patient denied any nausea, any vomi ting. Past Medical History: Includes; 1.Hypertension. 2.Diabetes complicated with neuropathy, retinopathy, and nephropathy. 3.End-stage renal disease, on hemodialysis Tuesday, Tuesday, Tuesday, last dialysis was Tuesday. 4.PAD, status post right MTA back in 2009 with toe amputation. 5.CAD complicated with congestive heart failure, status post CABG. Home Medications: Include; 1.Amlodipine. 2.Lasix. 3.Gabapentin. 4.Glipizide. 5.Hydralazine. 6.Spironolactone. 7.Carvedilol. Past Surgical History: Includes AV fistula placement, I and D, MTA back on the 2009, CABG. Family History: Positive for diabetes and hypertension. Social History: Denied smoking, denied drinking, denied drugs abuse. Review of Systems: Head and Neck: No red eye. No ear pain. GI: No nausea. No vomiting. : No polyuria. No dysuria. No hematuria. Operator Engineer: Not applicable. Respiratory: No shortness of breath. Cardiovascular: Has loss of consciousness. No chest pain. Endocrine: No polydipsia. Skin: No rash. Neuro: Has loss of consciousness. Musculoskeletal: Generalized fatigue. Physical Examination: Vital Signs: When I saw the patient; blood pressure 112/62, pulse of 88. Chest: Clear to auscultation. Heart: S1, S2. Regular. Systolic murmur. Abdomen: Soft, nontender. Extremities: Right foot dressing with MTA, left toe amputation. Neurological: Alert, oriented x3. No focality. Laboratory Data: Sodium 136, potassium 4.9, bicarb 21, BUN 73, creatinine 11.5, calcium 7.3. WBC 8. 7, H and H 11.8/36. Current Medications: The patient on include; 1.Heparin. 2.Atorvastatin. 3.Carvedilol 12.5 b.i.d. 4.Gabapentin. 5.Zofran. Assessment And Plan: 1.End-stage renal disease. We will maintain the patient on dialysis. We will hold on the dialysis today to stabilize the patient. We will arrange for the dialysis tomorrow. 2.Acidosis, going to be corrected with dialysis. 3.Hypertension. We will maintain blood pressure on the upper side unless there is recommendation fr om the Neurology. 4.Coronary artery disease with loss of consciousness. We will follow up with Cardiology. 5.Loss of consciousness with diaphoretic with vascular path, needs to rule out any coronary artery d isease/any neurological finding. The patient does not look to me related to any volume change as thi s incident happened even without doing dialysis and outside of the dialysis and occasionally happens at home before or after the dialysis. We will follow up with Neurology. 6.Diabetes as by primary. 7.Coronary artery disease with incidence of loss of consciousness. We will follow up with Cardiolog y. 8.Hyperkalemia. Going to be corrected with dialysis. CLAUDIA/ELEANORL Voice ID: [id number] Report ID: [id number]
--- NOTE | 2021-10-22 13:41 | PN ---
Date of Progress Note: 10/22/2021 Subjective: The patient was admitted with syncopal episode, loss of consciousness, diaphoretic. The patient's workup so far negative. The patient evaluated by Cardiology, recommended event monitor. Full workup has been done on previous admission including MRI with carotid Doppler. Recommendation f rom Neurology also to check for possible ambulatory EEG. The patient today completely asymptomatic. Objective: Vital Signs: Blood pressure 155/68, pulse of 63, afebrile. Chest: Clear to auscultation. Heart: S1, S2. Regular. Systolic murmur. Abdomen: Soft, nontender. Extremity: Right MTA, left toe amputation. Neurologic: Alert, oriented x3. No focal. Laboratory Data: Sodium 137, potassium 4.6, bicarb 20, BUN 81, creatinine 12.9, calcium 7.3. H and H 12.5/37.3. Current Medications: The patient on include; 1.Aspirin. 2.Atorvastatin. 3.Carvedilol 12.5. 4.Gabapentin. 5.Melatonin. Assessment And Plan: 1.End-stage renal disease with acidosis. We will arrange for dialysis today. 2.Hypertension, controlled, optimal. We will follow up blood pressure after dialysis. We will star t the patient on Lasix to minimize fluid exchange during the dialysis. 3.Acidosis, going to be corrected with dialysis. 4.Hyponatremia, will be corrected with dialysis. 5.Anemia. No need for KADI. 6.Syncopal episode with vascular path. The patient waiting for Cardiology evaluation. Recommended Holter or event monitor and Neurology recommended ambulatory EEG. We will follow up. THALIA Voice ID: [id number] Report ID: [id number]
[2021-10-22 14:03] LABS: Troponin High Sensitivity 353.4 pg/mL (<58.9)
--- NOTE | 2021-10-22 14:37 | RAD REPORT ---
EXAM DESCRIPTION: CT - Abdomen Pelvis Wo Contrast - 10/22/2021 2:21 pm CLINICAL HISTORY: Abdominal pain. eval pancreas, r/o malignancy COMPARISON: Abdomen Pelvis Wo Contrast dated 02/06/2019 TECHNIQUE: CT imaging of the abdomen and pelvis was performed without contrast. Solid organ, bowel a nd vascular assessment is limited due to lack of IV and oral contrast. All CT scans are performed using dose optimization technique as appropriate and may include automated exposure control or mA/KV adjustment according to patient size. FINDINGS: The lower lung le are clear. The liver, spleen, pancreas, adrenal glands are within normal limits for a limited non-contrast exami nation.Mildly atrophic bilateral kidneys. No bowel obstruction, free air, free fluid or abscess. The appendix is normal. Significant vascular atherosclerosis. Moderate stool is retained throughout the colon. Small bilateral fat containing ingu inal hernias. Mild lumbar degenerative changes. IMPRESSION: No acute intra-abdominal or pelvic findings. Significant atherosclerosis with atrophic bilateral kidneys. Small bilateral fat containing inguinal hernias. A limited non-contrast examination was performed as detailed.
[2021-10-22 18:26] LABS: Troponin High Sensitivity 330.2 pg/mL (<58.9)
--- NOTE | 2021-10-22 18:41 | P.DS ---
Admission Date: 10/21/21 Discharge Date: 10/22/21 Disposition: ROUTINE DISCHARGE Discharge Condition: GOOD Reason for Admission: Syncope Consultations: Nephrology - Dr. Kelly Neurology - Dr. Bobo Cardiology - Dr. Aldridge Brief History of Present Illness: 60-year-old male with a past medical history significant for hypertension, DM 2 with neuropathy, ESRD, hyperlipidemia, TUYET who presents with complaint of syncope while at dialysis. This occurred while patient was in waiting room prior to dialysis. Patient has had similar episodes in the past and was recently seen in the hospital for this. Patient denies any other signs and symptoms. Symptoms are aggravated or relieved by nothing. Patient was referred to come to the hospital by his superintendent transmission. Hospital Course: Problem List Syncope, recurrent ESRD on HD Diabetes type 2diet controlled CAD status post CABG Hypertension Patient was admitted for evaluation of recurrent syncopal events. Patient's labs were rather unremarkable with exception of mild elevation of troponin which was stable, and elevated lipase. Patient denied any symptoms - no nausea/vomiting, no abdominal pain, no GI issues, no palpitations. States he didn't sleep well the ~2 or so nights prior to each episode of syncope. Neurology and Cardiology were again consulted. Reviewed recent full workup done a few months ago which was negative. Neurology recommended outpatient ambulatory EEG monitoring to r/o abnormal electrical activity / seizure Cardiology recommended close follow up in the office, will need event monitor to check for arrhythmia No arrhythmia noted on telemetry. Patient underwent dialysis without any issue, no dizziness, no syncope. Patient reported feeling well and wanting to be discharged home. He was deemed stable for discharge home. Strongly encouraged to have close follow up with Neurology and Cardiology. He did not follow up last time. Patient's lipase was elevated. Unclear why initially checked. Review of EMR shows it has been elevated in the past up to 1500. On admission in was in 2000s, following day was 3000s, repeat after dialysis was slightly improved. He had no tenderness in his epigastric region. A CT abd/pelvis without contrast was done, no evidence of acute process, nothing of note regarding pancreas/liver. Patient is to follow up with his PCP, consider GI follow up. Discussed with nephrology - repeat lipase in a few days, will schedule CT angio or further imaging to further evaluate if remains elevated. ESRD can lead to increased lipase/amylase levels. Physical exam GEN: Alert, oriented, NAD HEENT: Normal conjunctiva, sclera anicteric CV: Regular rate and rhythm, no edema Pulm: Non-labored respirations on room air ABD: Soft, nontender, nondistended Neuro: Normal speech, normal affect, str 5/5 Vital Signs/Physical Exam: Temp Pulse Resp BP Pulse Ox 97.4 F 67 16 168/84 H 98 10/22/21 12:00 10/22/21 17:38 10/22/21 12:00 10/22/21 17:38 10/22/21 12:00 Laboratory Data at Discharge: WBC 9.30 K/uL (4.3-10.9) 10/22/21 03:13 Hgb 12.5 g/dL (13.6-17.9) L 10/22/21 03:13 Hct 37.3 % (39.6-49.0) L 10/22/21 03:13 Plt Count 167 K/uL (152-406) 10/22/21 03:13 PT 11.8 SECONDS (9.5-12.5) 10/21/21 14:05 INR 1.07 10/21/21 14:05 APTT 27.5 SECONDS (24.3-36.9) 10/21/21 14:05 Sodium 137 mmol/L (136-145) 10/22/21 03:13 Potassium 4.6 mmol/L (3.5-5.1) 10/22/21 03:13 BUN 81 mg/dL (7-18) H 10/22/21 03:13 Creatinine 12.90 mg/dL (0.55-1.3) H* D 10/22/21 03:13 Glucose 102 mg/dL (74-106) 10/22/21 03:13 Magnesium 2.4 mg/dL (1.8-2.4) 10/21/21 14:05 Total Bilirubin 0.4 mg/dL (0.2-1.0) 10/21/21 14:05 AST 19 U/L (15-37) 10/21/21 14:05 ALT 23 U/L (12-78) 10/21/21 14:05 Alkaline Phosphatase 82 U/L (45-117) 10/21/21 14:05 Amylase 469 U/L (25-115) H* 10/22/21 13:20 Lipase Cancelled 10/22/21 20:00 Home Medications: Aspirin Chewable [Aspirin Chewable*] 81 mg PO DAILY 10/22/21 Atorvastatin Calcium [Lipitor] 40 mg PO DAILY 10/22/21 Carvedilol [Coreg] 25 mg PO BID 10/22/21 Ferrous Sulfate [Ferrous Sulfate*] 325 mg PO DAILY 10/22/21 Folic Acid/Vit B Complex and C [Dialyvite 800 Chewable Wafer] 1 tab PO DAILY 10/22/21 Gabapentin 300 mg PO DAILY 10/22/21 Hydralazine [Apresoline*] 2 tab PO TID 10/22/21 Lisinopril [Zestril] 20 mg PO BEDTIME 10/22/21 Sucroferric Oxyhydroxide [Velphoro] 3 tab PO TIDWM 10/22/21 Physician Discharge Instructions: Patient was admitted for evaluation of recurrent syncopal events. Patient's labs were rather unremarkable with exception of mild elevation of troponin which was stable, and elevated lipase. Patient denied any symptoms - no nausea/vomiting, no abdominal pain, no GI issues, no palpitations. States he didn't sleep well the ~2 or so nights prior to each episode of syncope. Neurology and Cardiology were again consulted. Reviewed recent full workup done a few months ago which was negative. Neurology recommended outpatient ambulatory EEG monitoring to r/o abnormal electrical activity / seizure Cardiology recommended close follow up in the office, will need event monitor to check for arrhythmia No arrhythmia noted on telemetry. Patient underwent dialysis without any issue, no dizziness, no syncope. Patient reported feeling well and wanting to be discharged home. He was deemed stable for discharge home. Strongly encouraged to have close follow up with Neurology and Cardiology. He did not follow up last time. Patient's lipase was elevated. Unclear why initially checked. Review of EMR shows it has been elevated in the past up to 1500. On admission in was in 2000s, following day was 3000s, repeat after dialysis was slightly improved. He had no tenderness in his epigastric region. A CT abd/pelvis without contrast was done, no evidence of acute process, nothing of note regarding pancreas/liver. Patient is to follow up with his PCP, consider GI follow up. Discussed with nephrology - repeat lipase in a few days, will schedule CT angio or further imaging to further evaluate if remains elevated. ESRD can lead to increased lipase/amylase levels. Diet: Renal Activity: Ad heathre Followup: Tito Duval MD [Primary Care Provider] - Time spent managing pt's care (in minutes): 45
[2021-10-22 19:54] VITALS: TEMP 98.1
[2021-10-22] MEDS ORDERED: lisinopriL 20 MG TAB PO ONE (20:00)
[2021-10-22] MEDS ORDERED: HYDRALAZINE HCL 25 MG TABLET PO ONE (20:00)
[2021-10-22 21:11] VITALS: BP 150/74
[2021-10-22 21:14] VITALS: O2SAT 98
--- NOTE | 2021-10-23 00:17 | CON ---
Reason For Consultation: Consultation called because of syncope. History Of Present Illness: Mr. Grijalva is a 60-year-old patient with end-stage renal disease on hemodialysis, dyslipidemia, and hypertension who comes to [facility] after another syncop al episode. He was getting ready to have dialysis when he passed out, he said without warning. He w as told that he did not shake or bite his tongue. He regained awareness and had mild confusion. He had a similar episode and his workup at that point was negative. He does not recall any chest pain o r shortness of breath prior to the episode. He had his workup at [facility] and again it can s been negative. Past Medical History: As noted. Allergies: NO KNOWN DRUG ALLERGIES. Medications: At home are gabapentin 300 mg daily, atorvastatin 40 mg at bedtime, calcium acetate 3 t ablets 3 times daily, ferrous sulfate 325 mg daily, Zestril mg daily, and Coreg 12.5 mg tw ice daily. Past Surgical History: Cardiac bypass, incision and drainage x2 in 2016, transmetatarsal amputation of the foot in 2009, port for renal dialysis. Family History: Gastrointestinal disease in mother and sister. Social History: No alcohol, tobacco, or IV drug use. Review of Systems: As noted, episodes of passing out and some episodes of diffuse weakness. Otherwise, no recent fevers , chills, nausea, vomiting, myalgias, arthralgias, rash, or itching. Physical Examination: Vital Signs: Blood pressure 185/80, pulse is 65, respiratory rate 16, temperature 98.1, oxygen satur ation 98%. General: Mr. Grijalva is resting in bed. He is in no significant distress. HEENT: He is normocephalic, atraumatic. Sclerae are anicteric. Oropharynx is moist. Neck: Supple. Chest: Clear. Heart: Regular. Extremities: No significant edema, but some mild cyanosis as noted above. Neurologic: Alert and oriented to situation, place, and person. Follows commands appropriately. Hi s cranial nerves show no focal deficits. He has no focal motor or sensory or coordination deficits e xcept for stocking-glove loss to light touch and temperature in the lower extremities. Reflexes depr essed. Gait is mildly wide-based, unsteady. Imaging: His prior brain MRI done on July 16, 2021 showed actually no abnormalities and as noted, he did not have brain imaging this visit. Assessment: Mr. Grijalva is a 60-year-old patient with multiple medical problems as noted, who has had m ultiple syncopal episodes. His workup, which included a brain MRI and actual routine EEG at last vis it when he had a syncopal episode, did not show any significant abnormalities. However, his EEG did show mildly slow background, but no epileptiform discharges. There appears to be no cardiac etiology for his syncope as well. Plan: 1.He may benefit from ambulatory video EEG monitoring for event characterization. 2.Continue with all comorbid condition management as per Primary Team. 3.He may be discharged home and follow up in Dr. Bobo's clinic within 6 weeks. KEVYN/JORGE Voice ID: [id number] Report ID: [id number]
[2021-10-23] MEDS ORDERED: FUROSEMIDE 40 MG TABLET PO SCH (09:00)
[2021-10-23] MEDS ORDERED: HYDRALAZINE HCL 25 MG TABLET PO SCH (09:00)
[2021-10-23] MEDS ORDERED: lisinopriL 20 MG TAB PO SCH (21:00)
--- NOTE | 2021-10-25 07:31 | CON ---
Date of Consultation: 10/22/2021 Admitted on 10/21/2021, by Dr. Huynh. Reason For Consultation: Syncope. History Of Present Illness: The patient is 60-year-old who has a history of hemodialysis secondary t o end-stage renal disease, hypertension, and diabetes. He has a history of PAD, coronary artery dise ase, status post CABG, chronic diastolic congestive heart failure. He had a syncopal episode, while waiting for dialysis. Prior to the syncope, he had no symptoms. He denied any chest pain, nausea, v omiting, diaphoresis, PND, orthopnea, pedal edema, or palpitation. He just lost consciousness. So f ar, his workup showing elevated amylase and lipase with a creatinine of 12, otherwise, he had an echo cardiogram that was normal in July of 2021. He is asymptomatic now. Past Medical History: As stated above. Allergies: NONE. Review of Systems: Negative. Social History: Negative. Family History: Noncontributory. Medications: Include: 1.Neurontin. 2.Lipitor. 3.Iron. 4.Coreg. Physical Examination: Vital Signs: Stable. He was afebrile. He was in sinus rhythm. HEENT: Negative. Neck: Supple without any bruit, lymphadenopathy, JVD, or thyromegaly. Chest: Clear to auscultation and percussion. Cardiac: Revealed a regular rhythm and rate. No murmurs, gallops, or rubs. Abdomen: Benign. Extremities: Revealed no clubbing, cyanosis, or edema. Diagnostic Data: As stated earlier. Impression And Plan: 1.Syncope. 2.End-stage renal disease. 3.Hypertension. 4.Diabetes. 5.Peripheral arterial disease. 6.Coronary artery disease, status post coronary artery bypass grafting. 7.History of chronic diastolic congestive heart failure. 8.Elevated amylase, elevated lipase. The patient may have some subacute pancreatitis. His syncope obviously is not related to this, but he could have bradycardia, arrhythmia, orthostatic hypotension. I am comfortable with him going home, whenever it is okay with Dr. Huynh. I think he needs to have an outpatient event monitor to rule out arrhythmias. Most likely, he had an episode of orthostatic hypotension. NB/MODL Voice ID: [id number] Report ID: [id number]
== END 2021-10-22 21:17 | disposition home or self-care (01) ==
LOC: ER 12:22 → ERHOLD 16:14 → 2ND 22:38
PROVIDERS: ADMIT Hospitalist; ATTEND Hospitalist
DX: R55 Syncope and collapse (principal); I13.2 Hypertensive heart and chronic kidney disease with heart failure and with stage 5 chronic kidney disease, or end stage renal disease; E11.22 Type 2 diabetes mellitus with diabetic chronic kidney disease; N18.6 End stage renal disease; I50.32 Chronic diastolic (congestive) heart failure; Z99.2 Dependence on renal dialysis; E11.40 Type 2 diabetes mellitus with diabetic neuropathy, unspecified; D50.9 Iron deficiency anemia, unspecified; R74.8 Abnormal levels of other serum enzymes; I25.10 Atherosclerotic heart disease of native coronary artery without angina pectoris; E78.5 Hyperlipidemia, unspecified; I73.9 Peripheral vascular disease, unspecified; Z20.822 Contact with and (suspected) exposure to COVID-19; Z95.1 Presence of aortocoronary bypass graft; Z79.899 Other long term (current) drug therapy; Z89.431 Acquired absence of right foot; Z83.79 Family history of other diseases of the digestive system
CPT/HCPCS: 36415; 74176; 80048; 80076; 81003; 82150; 82550; 82553; 82947; 83690; 83735; 84439; 84443; 84484; 85025; 85610; 85730; 87811; 90935; 99285; G0378; J0360; J1644

== ENCOUNTER 2022-04-08 21:05 | Emergency (ER) | payer OTHER ==
--- OUTSIDE RECORDS SUMMARY | 2022-04-08 21:43 | XMS REPORT | Continuity of Care Document ---
:1960 Author Organization [facility] t Address [address] [place] [address] Dr. Ramirez[address] [place] [id number] Care Team Providers Name Role Phone PCP, PATIENT DOES NOT HAVE A Primary Care Physician UnavailLupe Zelaya Anavella Attending Clinician Unava ilable [id number] Attending Clinician Unavailable Rose Duval Attending Clinician Unavailable STAR CLOUD Attending Clinician Unavailable MARIO DRIVER Attending Clinician Unavailable SARA MUNIZ Attending Clinician Unavailable STAR CLOUD Attending Clinician Unavailable CLARK CASTAÑEDA Attending Clinician Unavailable Marj DORSEY, Olayinka Bean Attending Clinician Unavailable LYLE CANALES Attending Clinician Unavailable Oralia Valdes Attending Clinician Lyle Canales MD Attending Clinician Star Cloud DPM Attending Clinician Beka Qureshi DO Attending Clinician Tao Shepherd MD Attending Clinician Sara Muniz MD Attending Clinician Marielos LOGAN, Eleuterio Attending Clinician Macrina LOGAN, Bal Attending Clinician Thomas LOGAN, Dav Attending Clinician DAV GUZMAN Attending Clinician Unavailable Pedro Luis LUU, Star Beltran Attending Clinician Carmina LOGAN, Petr Cesar Attending Clinician Pop LOGAN, Monica Attending Clinician Shashi LOGAN, Clark Chahal Attending Clinician Efraín LOGAN, Amanda Valenzuela Attending Clinician [phone] Evelyn Elkins Attending Clinician Shashi LOGAN, Clark Wilson Attending Clinician GERARDO KIRBY Attending Clinician Unavailable Natalio Mixon Chioma V Attending Clinician Unavailable HAKEEM HAGAN Attending Clinician Unavailable John Sánchez Attending Clinician Unavailable NATASHA HINES Attending Clinician Unavailable NATALIO MIXON CHIOMA EDY Attending Clinician Unavailable TOMASA HAGAN Attending Clinician Unavailable WILMER HOLLOWAY Attending Clinician Unavailable ABRAHAM MALAVE Attending Clinician Unavailable Chioma Nowakv, Anav Admitting Clinician Unavailable [id number] Admitting Clinician Unavailable STAR CLOUD Admitting Clinician Unavailable MARIO DRIVER Admitting Clinician Unavailable SARA MUNIZ Admitting Clinician Unavailable LYLE CANALES Admitting Clinician Unavailable Lyle Canales MD Admitting Clinician TAO SHEPHERD Admitting Clinician Unavailable ELEUTERIO ARCEO Admitting Clinician Unavailable ERIC PURI Admitting Clinician Unavailable NOHEMY MAYA Admitting Clinician Unavailable ROSE DUVAL Admitting Clinician Unavailable SHARON ELIAS Admitting Clinician Unavailable TOMASA HAGAN Admitting Clinician Unavailable Payers Payer Name Policy Type Policy Number Effective Date Expiration Date S [facility] [id number] [facility] [id number] 2020 HMO 00:00:00 CDC REVIEW [id number] 2019 2020 00:00:00 00:00:00 CIGNA MEDICARE HMO [id number] CIGNA MEDICARE - [id number] RNPO PCP MEDICARE PART A [id number] \\T\\ B - MEDICARE [facility] [id number] Commo n Medicare Replace [facility] Cig-[facility] C1 [id number] Commo n Medicare Replace [facility] Problems Condition Condition Condition Status Onset Resolution Last Treating Co mments Source Name Details Category Date Date Treatment Clinician Date Elevated Elevated Disease Active Unive rs troponin troponin 8-15 ity of 00:00: [address] Arterioven Arterioven Disease Active [facility] lemus ougregorio ous 5-31 College fistula fistula 00:00: of stenosis stenosis 00 Medici n e Hyperkalem Hyperkalem Disease Active M ethodi ia ia [facility]-27 [facility] 00:00: Hospita 00 l Foot Foot Disease Active 2020-[address] [facility] infection infection 2-23 [facility] 00[facility] Medical 00 Center Essential Essential Disease Active 2020-03 [facility] hypertensi hypertensi 1-16 Co llege on on 00:00: of 00 Medicin e Hyperlipid Hyperlipid Disease Active 2020-03 [facility] powersia emia 1-16 College 00:00: of 00 Medicin e Pressure Pressure Disease Active [facility] ulcer of ulcer of 8-10 [facility] e right right 00:00: of heel, heel, 00 Medicin stage 3 stage 3 e Pressure Pressure Disease Active [facility] ulcer of ulcer of 8-10 Colleg e right right 00:00: of heel, heel, 00 Medicin stage 3 stage 3 e (HCCode) (HCCode) Cellulitis Cellulitis Disease Active [facility] 7[facility]13 [facility] Diabetic Diabetic Disease [facility] infection infection 00:00: Medi magdaleno 00 Center High anion High anion Disease Active [facility] gap gap 7-13 [facility] metabolic metabolic 00:00: Medi magdaleno acidosis acidosis 00 Center Anemia due Anemia due Disease Active [facility] to chronic to chronic 7-13 [facility] kidney kidney 00:00: Medical disease, disease, 00 Center on chronic on chronic dialysis dialysis Status Status Disease Active [facility] post split post split 5-26 Co llege thickness thickness 00:00: of skin graft skin graft 00 Me dicin e 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 3-31 Co llege stump stump 00:00: of 00 Medicin e Status Status Disease Active [facility] post split post split 3-25 [facility] thickness thickness 00:00: Medi magdaleno skin graft skin graft 00 Ce nter Pressure Pressure Disease Active [facility] ulcer of ulcer of 3[facility]25 [facility] right right 00:00: Medical heel, heel, 00 Center stage 4 stage 4 Nonhealing Nonhealing Disease Active [facility] surgical surgical 1-06 [facility] wound wound 00:00: Medical 00 Center Nonhealing Nonhealing Disease Active [facility]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 1-05 [facility] stump stump 00:00: Medical 00 Center Sepsis, Sepsis, Disease Active 2019-[address] [facility] due to due to 1 [facility] unspecifie unspecifie 00:00: Me dical d d 00 Center organism, organism, unspecifie unspecifie d whether d whether acute acute organ organ dysfunctio dysfunctio n present n present Pressure Pressure Disease Active 2019-03 [facility] injury of injury of 03-07 [facility] right right 00:00: Medical heel, heel, 00 Center stage 4 stage 4 Osteomyeli Osteomyeli Disease Active 2019-[address] tis of tis of 1 [facility] right foot right foot 00:00: Me dical 00 Center Non-healin Non-healin Disease Active 2019-03 [facility] g wound of g wound of 0-01 Co llege lower lower 00:00: of extremity extremity 00 Medi greyson e Eschar of Eschar of Disease Active 2019-03 [facility] heel heel 0-01 College 00:00: of 00 Medicin e Wound Wound Disease Active 2019-03 [facility] eschar of eschar of 0-01 [facility] foot foot 00:00: of 00 Medicin e Amputation Amputation Disease Active [facility] stump stump 12-04 [facility] infection infection 00:00: [facility] 00 Center Gangrene Gangrene Disease Active [facility] of right of right 11-05 foot foot 00:00: Medical 00 Center HTN HTN Disease Active [facility] (hypertens (hypertens 8-15 [facility]i [facility] ion) ion) 00:00: Medical 00 Center Thrombophl Thrombophl Disease Active [facility] ebitis ebitis 8-15 [facility] 00:[facility] 00 Center Status Status Disease Active [facility] post post 8-13 [facility] transmetat transmetat 00:00: Me dical arsal arsal 00 Center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 of foot, of foot, right right Status Status Disease Active [facility] post skin post skin 8-13 [facility] graft graft 00:00: Medical using using 00 Center Integra Integra wound wound dressing dressing DM DM Disease Active [facility] (diabetes (diabetes 8-13 [facility] mellitus) mellitus) 00:00: [facility] type II, type II, 00 Center controlled controlled , with , with peripheral peripheral vascular vascular disorder disorder Post-opera Post-opera Disease Active [facility] tive state tive state -19 Co llege 00:00: of 00 Medicin e S/P S/P Disease Active [facility] transmetat transmetat 07-23 Co llege arsal arsal 00:00: of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 00 Nv dicin of foot, of foot, e right right Type 2 Type 2 Disease Active [facility] diabetes diabetes 07-23 Colleg e mellitus mellitus 00:00: of with with 00 Medicin diabetic diabetic e peripheral peripheral angiopathy angiopathy and and gangrene, gangrene, without without long-term long-term current current use of use of insulin insulin Encounter Encounter Disease Active [facility] for post for post 07-23 Colleg e surgical surgical 00:00: of wound wound 00 Medicin check check e PAD PAD Disease Recurre [facility] (periphera (periphera nce 5-12 Co llege l artery l artery 00:00: of disease) disease) 00 Medici n e PAD PAD Disease Active [facility] (periphera (periphera 5-12 Co llege l artery l artery 00:00: of disease) disease) 00 Medici n (HCCode) (HCCode) e Ischemia Ischemia Disease Active [facility] foot of foot 06-13[facility] 00:00: Medical 00 Center Type 2 Type [address] [facility] diabetes diabetes 06-13 [facility] mellitus mellitus 00:00: Medica l with with 00 Center diabetic diabetic peripheral peripheral angiopathy angiopathy and and gangrene, gangrene, with with long-term long-term current current use of use of insulin insulin PAD PAD Disease Active [facility] St (periphera (periphera 06-13 Regi [facility] l artery l artery 00:00: Medica l disease) disease) 00 Center CAD CAD Disease Active [facility] (coronary (coronary 09-22 st artery artery 00:00: Hospita disease) disease) 00 l Hypertensi Hypertensi Disease Active M ethodi on on 09-22 00:00: Hospita 00 l S/P CABG x S/P CABG x Disease Active M ethodi 3 3 09-22 00:00: Hospita 00 l Acute Acute Disease Active [facility] blood loss blood loss 09-22 anemia anemia 00:00: Hospita 00 l 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 Added automatic ally from request for surgery [id number] ESRD on ESRD on Disease Active [facility] hemodialys hemodialys [facility] is is Medical Center ESRD (end ESRD (end Disease Active [facility] stage stage [facility] renal renal Medical disease) disease) Center on on dialysis dialysis [id number] End stage Problem Active Comm on renal Spirit disease - [facility] Allergies, Adverse Reactions, Alerts Allergy Allergy Status Severity Reaction(s) Onset Inactive Treating Comm ents Source Name Type Date Date Clinician NKA Allergy Active [facility] 07-13 19:49: 35 NKA Allergy Active [facility] 07-13 19:49: 35 No Known DA Active [facility] 6[facility]10 [facility] 00:[facility]: d nc [facility] No Known DA Active [facility] 6[facility]10 [facility] 00:[facility]: [facility] NO KNOWN Allergy Active [facility] S NO KNOWN Drug Active Univers ALLERGIE Class ity of S [facility] Family History Family Member Diagnosis Comments Start Date Stop Date Source Natural father Diabetes [facility] Natural mother Diabetes [facility] Social History Social Habit Start Date Stop Date Quantity Comments Source History SDOH [facility] r Drinks History SDOH [facility] Alcohol Binge Medical Juan Alberto ter History SDOH [facility] Alcohol Comment Medical C enter History of Common Spirit - Tobacco Use [facility] Exposure to 2021-10-09 2021-10-19 Not sure University SARS-CoV-2 00:00:00 15:24:00 [facility] (event) Branch Cigarette 2021-07-27 2021-07-27 [facility] of pack-years 00:00:00 00:00:00 Medicine Alcohol intake 2021-03-12 2021-03-[address] [facility] es 00:00:00 00:00:00 non-drinker of Medical Ce nter alcohol (finding) Tobacco Comment 2019-09-12 2019-09-[address] [facility] 00:[facility] 00[facility]00 [facility] Tobacco use and 2019-06-14 2019-06-[address] [facility] exposure 00:00:00 00:00:[address] [facility] History SDOH 2019-06-14 2019-06-[address] [facility] Alcohol Frequency 00:00:00 00:00:[address] [facility] Sex Assigned At [address] [facility] 00:00:00 00:00:[address] [facility] Smoking Status Start Date Stop Date Source Tobacco smoking [employer] consumption unknown Medical [facility] Never smoked tobacco [facility] Ex-smoker 2018-03-08 00:00:00 2018-03-08 [facility] 00:[facility]:00 Medications Ordered Filled Start Stop Current Ordering Indication Dosage Frequency Signature Comments Components Source Medication Medication Date Date Medication? Clinician (SIG) Name Name PILLO VALENZUELA 2021-03 Yes by [facility] 0-04 COMBINATIO [place] 15:15: N route. of 58 Medicin e Sevelamer 2021-03 Yes Take by [facility] Carbonate 0-04 mouth. [place] 800 MG TABS 15:15: of 58 Medicin e carvedilol 2021-03 Yes 12.5mg Take 12.5 [facility] (COREG) 0-04 mg by [place] 12.5 MG 15:15: mouth 2 of tablet 58 times Medicin daily e (with meals). gabapentin 2021-03 Yes 300mg Take 300 [facility] (NEURONTIN) 0-04 mg by [place] 300 MG 15:15: mouth 3 of capsule 58 times Medicin daily. e Docusate 2021-03 Yes Take by [facility] Sodium 100 0-04 mouth. [place] MG TABS 15:15: of 58 Medicin e Simethicone 2021-03 Yes Take by [facility] darnell 80 MG TABS 0-04 mouth. [place] 15:15: of 58 Medicin e Glucagon 1 2021-03 Yes Inject [facility] MG/0.2ML 0-04 into the [place] SOAJ 15:15: skin. of 58 Medicin e Glucose 15 2021-03 Yes Take by Laurell or g PACK 0-04 mouth. [place] 15:15: of 58 Medicin e insulin 2021-03 Yes Inject [facility] aspart 0-04 into the [place] (NOVOLOG) 15:15: skin 3 of 100 UNIT/ML 58 times Medicin injection daily e (before meals). ferrous 2021-03 Yes 325mg Take 325 [facility] sulfate 325 0-04 mg by [place] (65 Fe) MG 15:15: mouth of tablet 58 daily. Medicin e insulin 2021-03 Yes Inject [facility] glargine 0-04 into the [place] (LANTUS) 15:15: skin of 100 UNIT/ML 58 nightly. Medi greyson injection e Epoetin 2021-03 Yes Inject as [facility] Fredy-epbx 0-04 directed. Colle ge (RETACRIT) 15:15: of 3000 58 Medicin UNIT/ML e SOLN Sucroferric 2021-03 Yes 500mg Take 500 [facility] Oxyhydroxid 0-04 mg by [place] e 15:15: mouth 3 of (VELPHORO) 58 times Medicin 500 MG CHEW daily. e sertraline 2021-03 Yes 25mg Take 25 mg [facility] (ZOLOFT) 25 0-04 by mouth Alexia ege MG tablet 15:15: daily. of 58 Medicin e amlodipine 2021-03 Yes 10mg Take 10 mg [facility] (NORVASC) 0-04 by mouth Colleg e 10 MG 15:15: daily. of tablet 57 Medicin e ASPIRIN 81 2021-03 Yes Take by [facility] OR 0-04 mouth. College 15:15: of 57 Medicin e Acetaminoph 2021-03 Yes Take by [facility] d[facility] en 0-04 mouth two College (TYLENOL) 15:15: times of 325 MG CAPS 57 daily. Medici n e atorvastati 2021-03 Yes 40mg Take 40 mg Ton n (LIPITOR) 0-04 by mouth Alexia ege 40 MG 15:15: daily. of tablet 57 Medicin e sertraline 2021-03 Yes 25mg Take 25 mg [facility] (ZOLOFT) 25 0-04 by mouth Alexia ege MG tablet 11:40: daily. of 34 Medicin e Sucroferric 2021-03 Yes 500mg Take 500 [facility] Oxyhydroxid 0-04 mg by [place] e 11:39: mouth 3 of (VELPHORO) 59 times Medicin 500 MG CHEW daily. e SENNA CO 2021-03 Yes by [facility] 0-04 [facility] 11:38: N route. of 04 Medicin e Sevelamer 2021-03 Yes Take by [facility] r Carbonate 0-04 mouth. [place] 800 MG TABS 11:38: of 04 Medicin e amlodipine 2021-03 Yes 10mg Take 10 mg [facility] (NORVASC) 0-04 by mouth Colleg e 10 MG 11:38: daily. of tablet 04 Medicin e carvedilol 2021-03 Yes 12.5mg Take 12.5 [facility] (COREG) 0-04 mg by [place] 12.5 MG 11:38: mouth 2 of tablet 04 times Medicin daily e (with meals). gabapentin 2021-03 Yes 300mg Take 300 [facility] (NEURONTIN) 0-04 mg by [place] 300 MG 11:38: mouth 3 of capsule 04 times Medicin daily. e ASPIRIN 81 2021-03 Yes Take by [facility] OR 0-04 mouth. [place] 11:38: of 04 Medicin e Acetaminoph 2021-03 Yes Take by [facility] darnell en 0-04 mouth two College (TYLENOL) 11:38: times of 325 MG CAPS 04 daily. Medici n e Docusate 2021-03 Yes Take by Ton Sodium 100 0-04 mouth. [place] MG TABS 11:38: of 04 Medicin e Simethicone 2021-03 Yes Take by [facility] darnell 80 MG TABS 0-04 mouth. [place] 11:38: of 04 Medicin e Glucagon 1 2021-03 Yes Inject [facility] MG/0.2ML 0-04 into the [place] SOAJ 11:38: skin. of 04 Medicin e Glucose 15 2021-03 Yes Take by [facility] g PACK 0-04 mouth. [place] 11:38: of 04 Medicin e insulin 2021-03 Yes Inject [facility] aspart 0-04 into the [place] (NOVOLOG) 11:38: skin 3 of 100 UNIT/ML 04 times Medicin injection daily e (before meals). atorvastati 2021-03 Yes 40mg Take 40 mg [facility] n (LIPITOR) 0-04 by mouth Alexia ege 40 MG 11:38: daily. of tablet 04 Medicin e ferrous 2021-03 Yes 325mg Take 325 [facility] sulfate 325 0-04 mg by [place] (65 Fe) MG 11:38: mouth of tablet 04 daily. Medicin e insulin 2021-03 Yes Inject [facility] glargine 0-04 into the [place] (LANTUS) 11:38: skin of 100 UNIT/ML 04 nightly. Medi greyson injection e Epoetin 2021-03 Yes Inject as [facility] Fredy-epbx 0-04 directed. Colle ge (RETACRIT) 11:38: of 3000 04 Medicin UNIT/ML e SOLN No known No No known Unive rs medications 8-15 medication it y of 17:10: s [address] No known No No known Unive rs medications 8-15 medication it y of 17:10: s [address] collagenase Yes [id number] Apply [facility] 250 UNIT/GM 7- [id number] Daily to Co llege ointment 00:00: all right of 00 foot Medicin wounds e daily with wound careMeasur ements 4.0cm x 5.0 cm x 1.0 cm collagenase Yes [id number] Apply [facility] 250 UNIT/GM 09-09 [id number] Daily to Co llege ointment 00:00: all right of 00 foot Medicin wounds e daily with wound careMeasur ements 4.0cm x 5.0 cm x 1.0 cm SENNA CO 2021- Yes by [facility] 7-05 COMBINATIO [place] 16:12: N route. of 23 Medicin e Sevelamer Yes Take by [facility] Carbonate 7-05 mouth. [place] 800 MG TABS 16:12: of Medicin e amlodipine Yes 10mg Take 10 mg [facility] (NORVASC) 7-05 by mouth Colleg e 10 MG 16:12: daily. of tablet 23 Medicin e carvedilol Yes 12.5mg Take 12.5 [facility] (COREG) 7-05 mg by [place] 12.5 MG 16:12: mouth 2 of tablet 23 times Medicin daily e (with meals). gabapentin Yes 300mg Take 300 [facility] (NEURONTIN) 7-05 mg by [place] 300 MG 16:12: mouth 3 of capsule 23 times Medicin daily. e ASPIRIN 81 Yes Take by [facility] darnell OR 7-05 mouth. [place] 16:12: of Medicin e Acetaminoph Yes Take by [facility] darnell en 7-05 mouth [facility] (TYLENOL) 16:12: times of 325 MG CAPS 23 daily. Medici n e Docusate Yes Take by [facility] Sodium 100 7-05 mouth. [place] MG TABS 16:12: of 23 Medicin e Simethicone Yes Take by [facility] darnell 80 MG TABS 7-05 mouth. [place] 16:12: of Medicin e Glucagon 1 Yes Inject [facility] MG/0.2ML -05 into the College SOAJ 16:12: skin. of 23 Medicin e Glucose 15 Yes Take by [facility] g PACK 7-05 mouth. [place] 16:12: of 23 Medicin e insulin Yes Inject [facility] aspart 7-05 into the [place] (NOVOLOG) 16:12: skin 3 of 100 UNIT/ML 23 times Medicin injection daily e (before meals). atorvastati Yes 40mg Take 40 mg Ton n (LIPITOR) 7-05 by mouth Alexia ege 40 MG 16:12: daily. of tablet 23 Medicin e ferrous Yes 325mg Take 325 [facility] sulfate 325 7-05 mg by [place] (65 Fe) MG 16:12: mouth of tablet 23 daily. Medicin e insulin Yes Inject [facility] glargine -05 into the [place] (LANTUS) 16:12: skin of 100 UNIT/ML 23 nightly. Medi greyson injection e Epoetin Yes Inject as [facility] Fredy-epbx -05 directed. Colle ge (RETACRIT) 16:12: of 3000 23 Medicin UNIT/ML e SOLN collagenase 2021- No [id number] 1{appli [facility] 250 UNIT/GM 08-04 cation} [facility]ia ege ointment 1 22:30: 10:29 of application 00 :00 Medicin e SENNA CO Yes by [facility] 08-04 COMBINAO [place] 17:10: N route. of 41 Medicin e Sevelamer Yes Take by [facility] Carbonate 08-04 mouth. [place] 800 MG TABS 17:10: of 41 Medicin e amlodipine Yes 10mg Take 10 mg [facility] (NORVASC) 08-04 by mouth Colleg e 10 MG 17:10: daily. of tablet 41 Medicin e carvedilol Yes 12.5mg Take 12.5 [facility] (COREG) 5-31 mg by [place] 12.5 MG 17:10: mouth 2 of tablet 41 times Medicin daily e (with meals). gabapentin Yes 300mg Take 300 [facility] (NEURONTIN) 5-31 mg by [place] 300 MG 17:10: mouth 3 of capsule 41 times Medicin daily. e ASPIRIN 81 Yes Take by [facility] OR 08-04 mouth. [place] 17:10: of 41 Medicin e Acetaminoph Yes Take by [facility] darnell en - mouth two College (TYLENOL) 17:10: times of 325 MG CAPS 41 daily. Medici n e Docusate Yes Take by [facility] Sodium 100 08-04 mouth. [place] MG TABS 17:10: of 41 Medicin e Simethicone Yes Take by [facility] darnell 80 MG TABS 08-04 mouth. [place] 17:10: of 41 Medicin e Glucagon 1 Yes Inject [facility] MG/0.2ML 08-04 into the [place] SOAJ 17:10: skin. of 41 Medicin e Glucose 15 Yes Take by [facility] g PACK 08-04 mouth. [place] 17:10: of 41 Medicin e insulin Yes Inject [facility] aspart 08-04 into the [place] (NOVOLOG) 17:10: skin 3 of 100 UNIT/ML 41 times Medicin injection daily e (before meals). atorvastati Yes 40mg Take 40 mg Ton n (LIPITOR) 08-04 by mouth Alexia ege 40 MG 17:10: daily. of tablet 41 Medicin e ferrous Yes 325mg Take 325 [facility] sulfate 325 - mg by [place] (65 Fe) MG 17:10: mouth of tablet 41 daily. Medicin e insulin Yes Inject [facility] glargine 08-04 into the [place] (LANTUS) 17:10: skin of 100 UNIT/ML 41 nightly. Medi greyson injection e Epoetin Yes Inject as [facility] Fredy-epbx 08-04 directed. Colle ge (RETACRIT) 17:10: of 3000 41 Medicin UNIT/ML e SOLN SENNA CO Yes by [facility] 08-04 COMBINATIO [place] 17:10: N route. of 41 Medicin e Sevelamer Yes Take by [facility] Carbonate - mouth. [place] 800 MG TABS 17:10: of 41 Medicin e amlodipine Yes 10mg Take 10 mg [facility] (NORVASC) 08-04 by mouth Colleg e 10 MG 17:10: daily. of tablet 41 Medicin e carvedilol Yes 12.5mg Take 12.5 [facility] (COREG) 5-31 mg by [place] 12.5 MG 17:10: mouth 2 of tablet 41 times Medicin daily e (with meals). gabapentin Yes 300mg Take 300 [facility] (NEURONTIN) 5-31 mg by [place] 300 MG 17:10: mouth 3 of capsule 41 times Medicin daily. e ASPIRIN 81 0 Yes Take by [facility] OR 5-31 mouth. [place] 17:10: of 41 Medicin e Acetaminoph Yes Take by [facility]urel darnell en - mouth two [place] (TYLENOL) 17:10: times of 325 MG CAPS 41 daily. Medici n e Docusate Yes Take by [facility] Sodium 100 - mouth. [place] MG TABS 17:10: of 41 Medicin e Simethicone Yes Take by [facility]urel darnell 80 MG TABS - mouth. [place] 17:10: of 41 Medicin e Glucagon 1 Yes Inject [facility] MG/0.2ML 08-04 into the [place] SOAJ 17:10: skin. of 41 Medicin e Glucose 15 Yes Take by [facility] g PACK 08-04 mouth. [place] 17:10: of 41 Medicin e insulin Yes Inject [facility] aspart 08-04 into the [place] (NOVOLOG) 17:10: skin 3 of 100 UNIT/ML 41 times Medicin injection daily e (before meals). atorvastati 0 Yes 40mg Take 40 mg [facility] n (LIPITOR) 08-04 by mouth Alexia ege 40 MG 17:10: daily. of tablet 41 Medicin e ferrous 0 Yes 325mg Take 325 [facility] sulfate 325 -31 mg by [place] (65 Fe) MG 17:10: mouth of tablet 41 daily. Medicin e insulin Yes Inject [facility] glargine 08-04 into the [place] (LANTUS) 17:10: skin of 100 UNIT/ML 41 nightly. Medi greyson injection e Epoetin Yes Inject as [facility] Fredy-epbx 08-04 directed. [facility] ge (RETACRIT) 17:10: of 3000 41 Medicin UNIT/ML e SOLN senna-docus 2021-0 2- No 1{tbl} Take 1 [facility] ate 08-04-31 Tablet by [place] (PERICOLACE 17:06: 00:00 mouth of ) 8.6-50 MG 15 :00 daily. Medici n per tablet e senna-docus 2021-2021- No 1{tbl} Take 1 [facility] ate -04 08- Tablet by [place] (PERICOLACE 17:06: 00:00 mouth of ) 8.6-50 MG 15 :00 daily. Medici n per tablet e piperacilli 2021- No 2.25g Inject [facility] n-tazobacta 08-04- 2.25 g [facility] m (ZOSYN) 17:06: 00:00 into the of 2-0.25 09 :00 vein every Medicin GM/50ML 6 hours. e IVPB piperacilli 2021-2021- No 2.25g Inject [facility] n-tazobacta 08-04 2.25 g [facility] (ZOSYN) 17:06: 00:00 into the of 2-0.25 09 :00 vein every Medicin GM/50ML 6 hours. e IVPB Melatonin 3 2021- No Take by [facility] MG TABS -04 08- mouth. [place] 17:06: 00:00 of 00 :00 Medicin e Melatonin 3 2021- No Take by [facility] MG TABS -04 08- mouth. [place] 17:06: 00:00 of 00 :00 Medicin e Melatonin 3 0 Yes Take by [facility] MG TABS 5-17 mouth. [place] 10:42: of 01 Medicin e senna-docus 0 Yes 1{tbl} Take 1 [facility] ate 5-17 Tablet by [place] (PERICOLACE 10:42: mouth of ) 8.6-50 MG 01 daily. Medici n per tablet e piperacilli 0 Yes 2.25g Inject [facility] n-tazobacta 5-17 2.25 g [facility] (ZOSYN) 10:42: into the of 2-0.25 01 vein every Medicin GM/50ML 6 hours. e IVPB SENNA CO Yes by [facility] - COMBINATIO [place] 10:40: N route. of 25 Medicin e Sevelamer Yes Take by [facility] Carbonate 5-17 mouth. [place] 800 MG TABS 10:40: of 25 Medicin e amlodipine Yes 10mg Take 10 mg [facility] (NORVASC) 5-17 by mouth [facility] 10 MG 10:40: daily. of tablet 25 Medicin e carvedilol Yes 12.5mg Take 12.5 [facility] (COREG) 5-17 mg by [place] 12.5 MG 10:40: mouth 2 of tablet 25 times Medicin daily e (with meals). gabapentin Yes 300mg Take 300 [facility] (NEURONTIN) 5-17 mg by [place] 300 MG 10:40: mouth 3 of capsule 25 times Medicin daily. e ASPIRIN 81 Yes Take by [facility] OR 5-17 mouth. [place] 10:40: of 25 Medicin e Acetaminoph Yes Take by [facility] darnell en 5-17 mouth [facility] (TYLENOL) 10:40: times of 325 MG CAPS 25 daily. Medici n e Docusate Yes Take by [facility] Sodium 100 5-17 mouth. [place] MG TABS 10:40: of 25 Medicin e Simethicone Yes Take by [facility] darnell 80 MG TABS 5-17 mouth. [place] 10:40: of 25 Medicin e Glucagon 1 Yes Inject [facility] MG/0.2ML 5-17 into the [place] SOAJ 10:40: skin. of 25 Medicin e Glucose 15 Yes Take by [facility] g PACK -17 mouth. [place] 10:40: of 25 Medicin e insulin Yes Inject [facility] aspart 5-17 into the [place] (NOVOLOG) 10:40: skin 3 of 100 UNIT/ML 25 times Medicin injection daily e (before meals). atorvastati Yes 40mg Take 40 mg [facility] n (LIPITOR) 5-17 by mouth [facility] 40 MG 10:40: daily. of tablet 25 Medicin e ferrous Yes 325mg Take 325 [facility] sulfate 325 5-17 mg by [place] (65 Fe) MG 10:40: mouth of tablet 25 daily. Medicin e insulin Yes Inject [facility] glargine 5-17 into the [place] (LANTUS) 10:40: skin of 100 UNIT/ML 25 nightly. Medi greyson injection e Epoetin Yes Inject as [facility] Fredy-epbx 07-21 directed. [facility] (RETACRIT) 10:40: of 3000 25 Medicin UNIT/ML e SOLN clopidogreL Yes 75mg QD Take 75 mg [facility] (PLAVIX) 75 07-[address] mg tablet 20:42: daily. Hospit a 25 l lisinopriL Yes 20mg QD Take 20 mg [facility] (PRINIVIL) [address] 20 mg 20:42: daily. [facility]ospita tablet 25 l carvediloL Yes 25mg Q.5D Take 25 mg [facility] (COREG) [address] MG tablet 20:42: (two) Hospita 25 times a l day with meals. atorvastati Yes 40mg QD Take 40 mg [facility] n (LIPITOR) 07-[address] 40 mg 20:42: daily. [facility]ospita tablet 25 l calcium Yes 1334mg [id number] Take 1,334 [facility] acetate,junito - [id number] mg by s t sphat bind, 20:42: 3D mouth 3 [facility] (PHOSLO) 25 (three) l 667 mg times a capsule day with meals. aspirin Yes 81mg QD Take 81 mg [facility] (ECOTRIN) 07-[address] 81 MG 20:42: daily. Hospita enteric 25 l coated tablet hydrALAZINE Yes 25mg Q.[id number] Take 25 mg [facility] (APRESOLINE 07-05 [id number] by mouth 3 st ) 25 MG 20:42: 3D (three) Hospita tablet 25 times a l day. ferrous 2021- Yes 325mg QD Take 325 [facility] di sulfate 325 5-[address] (65 FE) MG 20:42: mouth Hospit a tablet 25 daily with l breakfast. NIFEdipine Yes 30mg QD Take 30 mg [facility] (ADALAT 5-[address] CC) 30 MG 20:42: daily. Hospit a 24 hr 25 l tablet clopidogreL 2022-0 Yes 75mg QD Take 75 mg [facility] (PLAVIX) 75 5-[address] mg tablet 20:42: daily. Hospit a 25 l lisinopriL 2021-0 Yes 20mg QD Take 20 mg [facility] (PRINIVIL) 5-[address] 20 mg 20:42: daily. Hospita tablet 25 l carvediloL 2021-0 Yes 25mg Q.5D Take 25 mg [facility] (COREG) 25 5-[address] MG tablet 20:42: (two) Hospita 25 times a l day with meals. atorvastati 2021-0 Yes 40mg QD Take 40 mg [facility] (LIPITOR) 5-[address] 40 mg 20:42: daily. Hospita tablet 25 l calcium 2021-0 Yes 1334mg Q.[id number] Take 1,334 [facility] acetate,junito 5- [id number] mg by s t sphat bind, 20:42: 3D mouth 3 [facility] (PHOSLO) 25 (three) l 667 mg times a capsule day with meals. aspirin 2021-0 Yes 81mg QD Take 81 mg [facility] (ECOTRIN) 5-[address] 81 MG 20:42: daily. Hospita enteric 25 l coated tablet hydrALAZINE 2021-0 Yes 25mg Q.[id number] Take 25 mg [facility] (APRESOLINE -01 [id number] by mouth 3 [facility] ) 25 MG 20:42: 3D (three) Hospita tablet 25 times a l day. ferrous 2021-0 Yes 325mg QD Take 325 Meth[facility] di sulfate 325 5-[address] (65 FE) MG 20:42: mouth Hospit a tablet 25 daily with l breakfast. NIFEdipine 2021-0 Yes 30mg QD Take 30 mg [facility] (ADALAT 5-[address] [facility]) 30 MG 20:42: daily. Hospit a 24 hr 25 l tablet glipiZIDE 2021-0 Yes 10mg Q.5D Take 10 mg [facility] (GLUCOTROL) 4-[address] 10 MG 20:42: (two) Hospita tablet 15 times a l day before meals. spironolact 2-0 Yes 25mg QD Take 25 mg [facility] one 4-[address] (ALDACTONE) 20:42: daily. [facility] 25 MG 15 l tablet gabapentin 2021-0 Yes 300mg QD Take 300 [facility] (NEURONTIN) 4-[address] 300 mg 20:42: mouth Hospita capsule 15 daily. l glipiZIDE 0 Yes 10mg Q.5D Take 10 mg [facility] (GLUCOTROL) 4-[address] 10 MG 20:42: (two) Hospita tablet 15 times a l day before meals. spironolact 2021-0 Yes 25mg QD Take 25 mg [facility] one 4-[address] (ALDACTONE) 20:42: daily. [facility] 25 MG 15 l tablet gabapentin 0 Yes 300mg QD Take 300 [facility] (NEURONTIN) 4-[address] 300 mg 20:42: mouth Hospita capsule 15 daily. l SENNA CO 0 Yes by [facility] 3-22 COMBINATIO [place] 16:08: N route. of 52 Medicin e Sevelamer 0 Yes Take by [facility] r Carbonate 05-26 mouth. [place] 800 MG TABS 16:08: of 52 Medicin e amlodipine 0 Yes 10mg Take 10 mg [facility] (NORVASC) 3-22 by mouth [facility] 10 MG 16:08: daily. of tablet 52 Medicin e carvedilol 0 Yes 12.5mg Take 12.5 [facility] (COREG) 3-22 mg by [place] 12.5 MG 16:08: mouth 2 of tablet 52 times Medicin daily e (with meals). gabapentin 0 Yes 300mg Take 300 [facility] (NEURONTIN) 3-22 mg by [place] 300 MG 16:08: mouth 3 of capsule 52 times Medicin daily. e ASPIRIN 81 2021-0 Yes Take by [facility] OR 3- mouth. [place] 16:08: of 52 Medicin e Melatonin 3 2021-0 Yes Take by [facility]urel darnell MG TABS - mouth. [place] 16:08: of 52 Medicin e Acetaminoph 0 Yes Take by [facility] darnell en -22 mouth two [facility] (TYLENOL) 16:08: times of 325 MG CAPS 52 daily. Medici n e Docusate 0 Yes Take by [facility] Sodium 100 - mouth. [facility] MG TABS 16:08: of 52 Medicin e senna-docus Yes 1{tbl} Take 1 [facility] ate -22 Tablet by [place] (PERICOLACE 16:08: mouth of ) 8.6-50 MG 52 daily. Medici n per tablet e Simethicone Yes Take by [facility] darnell 80 MG TABS - mouth. [place] 16:08: of 52 Medicin e Glucagon 1 Yes Inject [facility] MG/0.2ML - into the [place] SOAJ 16:08: skin. of 52 Medicin e Glucose 15 Yes Take by [facility] g PACK 05-26 mouth. [place] 16:08: of 52 Medicin e insulin Yes Inject [facility] aspart 05-26 into the [place] (NOVOLOG) 16:08: skin 3 of 100 UNIT/ML 52 times Medicin injection daily e (before meals). piperacilli Yes 2.25g Inject [facility] n-tazobacta 05-26 2.25 g [facility] (ZOSYN) 16:08: into the of 2-0.25 52 vein every Medicin GM/50ML 6 hours. e IVPB atorvastati Yes 40mg Take 40 mg [facility] n (LIPITOR) 05-26 by mouth Alexia ege 40 MG 16:08: daily. of tablet 52 Medicin e ferrous Yes 325mg Take 325 [facility] sulfate 325 3-22 mg by [place] (65 Fe) MG 16:08: mouth of tablet 52 daily. Medicin e insulin Yes Inject [facility] glargine - into the [place] (LANTUS) 16:08: skin of 100 UNIT/ML 52 nightly. Medi greyson injection e Epoetin Yes Inject as [facility] Fredy-epbx - directed. [facility] (RETACRIT) 16:08: of 3000 52 Medicin UNIT/ML e SOLN SENNA CO Yes by [facility] 3 COMBINATIO [place] 15:54: N route. of 43 Medicin e Sevelamer Yes Take by [facility] Carbonate 3- mouth. [place] 800 MG TABS 15:54: of 43 Medicin e amlodipine Yes 10mg Take 10 mg [facility] (NORVASC) 3- by mouth [facility] 10 MG 15:54: daily. of tablet 43 Medicin e carvedilol Yes 12.5mg Take 12.5 [facility] (COREG) 3- mg by [place] 12.5 MG 15:54: mouth 2 of tablet 43 times Medicin daily e (with meals). gabapentin Yes 300mg Take 300 [facility] (NEURONTIN) 3- mg by [place] 300 MG 15:54: mouth 3 of capsule 43 times Medicin daily. e ASPIRIN 81 Yes Take by [facility] OR 3- mouth. [place] 15:54: of 43 Medicin e Melatonin 3 Yes Take by [facility] darnell MG TABS 05-05 mouth. [place] 15:54: of 43 Medicin e Acetaminoph Yes Take by Laurel darnell en - mouth [facility] (TYLENOL) 15:54: times of 325 MG CAPS 43 daily. Medici n e Docusate Yes Take by [facility] Sodium 100 - mouth. [facility] MG TABS 15:54: of 43 Medicin e senna-docus Yes 1{tbl} Take 1 [facility] ate 05-05 Tablet by [place] (PERICOLACE 15:54: mouth of ) 8.6-50 MG 43 daily. Medici n per tablet e Simethicone Yes Take by [facility] darnell 80 MG TABS 05-05 mouth. [place] 15:54: of 43 Medicin e Glucagon 1 Yes Inject [facility] MG/0.2ML 05-05 into the [place] SOAJ 15:54: skin. of 43 Medicin e Glucose 15 Yes Take by [facility] g PACK 05-05 mouth. [place] 15:54: of 43 Medicin e insulin Yes Inject [facility] aspart 05-05 into the [place] (NOVOLOG) 15:54: skin 3 of 100 UNIT/ML 43 times Medicin injection daily e (before meals). piperacilli Yes 2.25g Inject [facility] n-tazobacta 05-05 2.25 g [facility] (ZOSYN) 15:54: into the of 2-0.25 43 vein every Medicin GM/50ML 6 hours. e IVPB atorvastati Yes 40mg Take 40 mg [facility] n (LIPITOR) 05-05 by mouth Alexia ege 40 MG 15:54: daily. of tablet 43 Medicin e ferrous Yes 325mg Take 325 [facility] sulfate 325 3- mg by [place] (65 Fe) MG 15:54: mouth of tablet 43 daily. Medicin e insulin Yes Inject [facility] glargine 05-05 into the College (LANTUS) 15:54: skin of 100 UNIT/ML 43 nightly. Medi [facility] injection e Epoetin Yes Inject as [facility] Fredy-epbx 05-05 directed. [facility] ge (RETACRIT) 15:54: of 3000 43 Medicin UNIT/ML e SOLN SENNA CO Yes [facility] of 43 Medicin e Sevelamer Yes Take by [facility] r Carbonate 2- mouth. [place] 800 MG TABS 15:31: of 43 Medicin e amlodipine Yes 10mg Take 10 mg [facility] (NORVASC) 04-07 by mouth [facility] 10 MG 15:31: daily. of tablet 43 Medicin e carvedilol Yes 12.5mg Take 12.5 [facility] (COREG) 2- mg by [place] 12.5 MG 15:31: mouth 2 of tablet 43 times Medicin daily e (with meals). gabapentin Yes 300mg Take 300 [facility] (NEURONTIN) 2- mg by [place] 300 MG 15:31: mouth 3 of capsule 43 times Medicin daily. e ASPIRIN 81 Yes Take by Laurell or OR 2 mouth. [place] 15:31: of 43 Medicin e Melatonin 3 Yes Take by [facility] darnell MG TABS 2- mouth. [place] 15:31: of 43 Medicin e Acetaminoph Yes Take by [facility] darnell en 2- mouth two [place] (TYLENOL) 15:31: times of 325 MG CAPS 43 daily. Medici n e Docusate Yes Take by [facility] Sodium 100 2-01 mouth. [place] MG TABS 15:31: of 43 Medicin e senna-docus Yes 1{tbl} Take 1 [facility] ate 2-01 Tablet by [place] (PERICOLACE 15:31: mouth of ) 8.6-50 MG 43 daily. Medici n per tablet e Simethicone Yes Take by [facility] darnell 80 MG TABS 2-01 mouth. [place] 15:31: of 43 Medicin e Glucagon 1 Yes Inject [facility] MG/0.2ML 04-07 into the [place] SOAJ 15:31: skin. of 43 Medicin e Glucose 15 Yes Take by [facility] g PACK 2 mouth. [place] 15:31: of 43 Medicin e insulin Yes Inject [facility] aspart 04-07 into the [place] (NOVOLOG) 15:31: skin 3 of 100 UNIT/ML 43 times Medicin injection daily e (before meals). piperacilli Yes 2.25g Inject [facility] n-tazobacta 04-07 2.25 g [facility] (ZOSYN) 15:31: into the of 20.25 43 vein every Medicin GM/50ML 6 hours. e IVPB atorvastati Yes 40mg Take 40 mg [facility] n (LIPITOR) 04-07 by mouth Alexia ege 40 MG 15:31: daily. of tablet 43 Medicin e ferrous Yes 325mg Take 325 [facility] sulfate 325 2- mg by [place] (65 Fe) MG 15:31: mouth of tablet 43 daily. Medicin e insulin Yes Inject [facility] glargine 04-07 into the [place] (LANTUS) 15:31: skin of 100 UNIT/ML 43 nightly. Medi greyson injection e Epoetin Yes Inject as [facility] Fredy-epbx 04-07 directed. [facility] (RETACRIT) 15:31: of 3000 43 Medicin UNIT/ML e SOLN Dextran 2021- No Apply to [facility] 70-Hypromel 2-04-07 eye. [place] lose 15:31: 00:00 of (ARTIFICIAL 43 :00 Medicin TEARS) e 0.1-0.3 % SOLN dextrose 50 2- No once. [facility] % injection 204-07 [place] 15:30: 00:00 of 37 :00 Medicin e acetaminoph 2021-0 Yes 500mg Take [address] en 1-10 mg by [facility] (TYLENOL) 17:48: mouth Medical 500 MG 27 every 6 Center tablet (six) hours as needed for Pain. aspirin 81 2021-0 Yes 81mg QD Take [address] [facility] EC 1-10 by mouth [facility] tablet 17:48: daily. [address] acetaminoph 0 Yes 500mg Take [address] en 1-10 mg by [facility] (TYLENOL) 17:48: mouth Medical 500 MG 27 every 6 Center tablet (six) hours as needed for Pain. aspirin 81 2021-0 Yes 81mg QD Take [address] MG EC 1-10 by mouth [facility] tablet 17:48: daily. [address] acetaminoph 0 Yes 500mg Take [address] en 1-10 mg by [facility] (TYLENOL) 17:48: mouth Medical 500 MG 27 every 6 Center tablet (six) hours as needed for Pain. aspirin 81 2021-0 Yes 81mg QD Take [address] MG EC 1-10 by mouth [facility] tablet 17:48: daily. [address] acetaminoph 0 Yes 500mg Take [address] en 1-10 mg by [facility] (TYLENOL) 17:48: mouth Medical 500 MG 27 every 6 Center tablet (six) hours as needed for Pain. aspirin 81 2021-0 Yes 81mg QD Take [address] MG EC 1-10 by mouth [facility] tablet 17:48: daily. [address] NIFEdipine 0 2021- No 90mg QD Take [address] [facility] (PROCARDIA- 1-10 04-10 tablet (90 L ukes XL) 90 MG 00:00: 23:59 mg total) Me [facility]ical (OSM) 24 hr 00 :00 [facility] er tablet daily for 90 days. NIFEdipine 2021-0 2021- No 30mg QD Take [address] [facility] (PROCARDIA- 1-10 04-10 tablet (30 [facility] XL) 30 MG 00:00: 23:59 mg total) Me dical (OSM) 24 hr 00 :[facility] er tablet every evening for 90 days. clopidogreL 2021-2021- No 75mg QD Take [address] [facility] (PLAVIX) 75 1-10 04-10 tablet (75 [facility] mg tablet 00:00: 23:59 mg total) Me dical 00 :00 by mouth Center daily for 90 days. NIFEdipine 2021-2021- No 90mg QD Take [address] [facility] (PROCARDIA- 1-10 04-10 tablet (90 L ukes XL) 90 MG 00:00: 23:59 mg total) Me dical (OSM) 24 hr 00 :00 [facility] mouth [facility] er tablet daily for 90 days. NIFEdipine 2021-2021- No 30mg QD Take [address] [facility] (PROCARDIA- 1-10 04-10 tablet (30 L ukes XL) 30 MG 00:00: 23:59 mg total) Me dical (OSM) 24 hr 00 :[facility] mouth [facility] er tablet every evening for 90 days. clopidogreL 2021-2021- No 75mg QD Take [address] [facility] (PLAVIX) 75 1-10 04-10 tablet (75 [facility] mg tablet 00:00: 23:59 mg total) Me dical 00 :00 by mouth Center daily for 90 days. NIFEdipine 2021-2021- No 90mg QD Take [address] [facility] (PROCARDIA- 1-10 04-10 tablet (90 L ukes XL) 90 MG 00:00: 23:59 mg total) Me dical (OSM) 24 hr 00 :[facility] mouth [facility] er tablet daily for 90 days. NIFEdipine 2021- No 30mg QD Take [address] [facility] (PROCARDIA- 1-10 04-10 tablet (30 [facility] XL) 30 MG 00:00: 23:59 mg total) Me dical (OSM) 24 hr 00 :00 [facility] mouth [facility] er tablet every evening for 90 days. clopidogreL 2021-2021- No 75mg QD Take [address] [facility] (PLAVIX) 75 1-10 04-10 tablet (75 [facility] mg tablet 00:00: 23:59 mg total) Me dical 00 :00 by mouth Center daily for 90 days. NIFEdipine 2021-2021- No 90mg QD Take [address] [facility] (PROCARDIA- 1-10 04-10 tablet (90 L ukes XL) 90 MG 00:00: 23:59 mg total) Me dical (OSM) 24 hr 00 :00 by mouth [facility] er tablet daily for 90 days. NIFEdipine 2021- No 30mg QD Take [address] [facility] (PROCARDIA- 03-16 04-10 tablet (30 L [facility] XL) 30 MG 00:00: 23:59 mg total) Me dical (OSM) 24 hr 00 :00 by mouth [facility] er tablet every evening for 90 days. clopidogreL 2021- No 75mg QD Take [address] [facility] (PLAVIX) 75 03-16-10 tablet (75 [facility] mg tablet 00:00: 23:59 mg total) Me dical 00 :00 by mouth Center daily for 90 days. ciprofloxac 2021- No 500mg Q24H Take [address] in HCl 03-16 tablet [facility] (CIPRO) 500 00:00: 23:59 (500 mg Me dical MG tablet 00 :00 total) by Cente r mouth daily for 22 days. vancomycin- 2021- No 1250mg Q.5W Inject [address] water 03-16 mLs (1,250 [facility] inject, 00:00: 23:59 mg total) Medi magdaleno PEG, (VANCO 00 :00 intravenou Ce nter READY) 1.25 sly twice gram/250 mL a week for PgBk 22 days Every other dialysis session. ciprofloxac 0 2021- No 500mg Q24H Take [address] in HCl 03-16 tablet [facility] (CIPRO) 500 00:00: 23:59 (500 mg Me dical MG tablet 00 :00 total) by Cente r mouth daily for 22 days. vancomycin- 0 2021- No 1250mg Q.5W Inject [address] water 03-16- mLs (1,250 [facility] inject, 00:00: 23:59 mg total) Medi [facility]eno PEG, (VANCO 00 :00 intravenou Ce nter READY) 1.25 sly twice gram/250 mL a week for PgBk 22 days Every other dialysis session. ciprofloxac 2021- No 500mg Q24H Take [address] in HCl 03-16 tablet [facility] (CIPRO) 500 00:00: 23:59 (500 mg Me dical MG tablet 00 :00 [facility]. vancomycin- 2021- No 1250mg Q.5W Inject [address] water 1-10 02-01 mLs (1,250 [facility] inject, 00:00: 23:59 mg total) Medi [facility] PEG, (VANCO 00 :00 intravenou Ce nter READY) 1.25 sly twice gram/250 mL a week for PgBk 22 days Every other dialysis session. vancomycin- 2021- No 1250mg Inject [address] water 1-10 01-10 mLs (1,250 [facility] inject, 00:00: 00:00 mg total) Medi [facility]eno PEG, (VANCO 00 :00 intravenou Ce nter READY) 1.25 sly 3 gram/250 mL (three) PgBk times a week after dialysis TUE/TUE/ I for 22 days. vancomycin- 2021- No 1250mg Inject [address] water 1-10 01-10 mLs (1,250 [facility] inject, 00:00: 00:00 mg total) Medi [facility]eno PEG, (VANCO 00 :00 intravenou Ce nter READY) 1.25 sly 3 gram/250 mL (three) PgBk times a week after dialysis TUE/TUE/ I for 22 days. SENNA CO 2020-03 Yes by [facility] 30 COMBINATIO [facility] 13:24: N route. of 17 Medicin e Sevelamer 2020-03 Yes Take by [facility] r Carbonate 30 mouth. [place] 800 MG TABS 13:24: of 17 Medicin e amlodipine 2020-03 Yes 10mg Take 10 mg [facility] (NORVASC) 1-30 by mouth Colleg e 10 MG 13:24: daily. of tablet 17 Medicin e carvedilol 2020-03 Yes 12.5mg Take 12.5 [facility] (COREG) 1-30 mg by [place] 12.5 MG 13:24: mouth 2 of tablet 17 times Medicin daily e (with meals). gabapentin 2020-03 Yes 300mg Take 300 [facility] (NEURONTIN) 1-30 mg by [place] 300 MG 13:24: mouth 3 of capsule 17 times Medicin daily. e ASPIRIN 81 2020-03 Yes Take by [facility] OR 1-30 mouth. [place] 13:24: of 17 Medicin e Melatonin 3 2020-03 Yes Take by [facility]urel darnell MG TABS 1-30 mouth. [place] 13:24: of 17 Medicin e Acetaminoph 2020-03 Yes Take by [facility] darnell en 1-30 mouth two [facility] (TYLENOL) 13:24: times of 325 MG CAPS 17 daily. Medici n e Docusate 2020-03 Yes Take by [facility] Sodium 100 1-30 mouth. College MG TABS 13:24: of 17 Medicin e senna-docus 2020-03 Yes 1{tbl} Take 1 [facility] ate 1-30 Tablet by [place] (PERICOLACE 13:24: mouth of ) 8.6-50 MG 17 daily. Medici n per tablet e Simethicone 2020-03 Yes Take by Laurel darnell 80 MG TABS 1-30 mouth. [place] 13:24: of 17 Medicin e Glucagon 1 2020-03 Yes Inject [facility] MG/0.2ML 30 into the [place] SOAJ 13:24: skin. of 17 Medicin e dextrose 50 2020-03 Yes once. [facility] % injection 30 [place] 13:24: of 17 Medicin e Glucose 15 2020-03 Yes Take by [facility] g PACK 1-30 mouth. [place] 13:24: of 17 Medicin e insulin 2020-03 Yes Inject [facility] aspart 30 into the [place] (NOVOLOG) 13:24: skin 3 of 100 UNIT/ML 17 times Medicin injection daily e (before meals). Dextran 2020-03 Yes Apply to [facility] 70-Hypromel 1-30 eye. [place] lose 13:24: of (ARTIFICIAL 17 Medicin TEARS) e 0.1-0.3 % SOLN piperacilli 2020-03 Yes 2.25g Inject [facility] n-tazobacta 30 2.25 g [facility] (ZOSYN) 13:24: into the of 2-0.25 17 vein every Medicin GM/50ML 6 hours. e IVPB atorvastati 2020-03 Yes 40mg Take 40 mg [facility] n (LIPITOR) 1-30 by mouth Alexia ege 40 MG 13:24: daily. of tablet 17 Medicin e ferrous 2020-03 Yes 325mg Take 325 [facility] sulfate 325 1-30 mg by [place] (65 Fe) MG 13:24: mouth of tablet 17 daily. Medicin e insulin 2020-03 Yes Inject [facility] glargine 30 into the College (LANTUS) 13:24: skin of 100 UNIT/ML 17 nightly. Medi [facility] injection e Epoetin 2020-03 Yes Inject as [facility] Fredy-epbx -30 directed. [facility] ge (RETACRIT) 13:24: of 3000 17 Medicin UNIT/ML e SOLN SENNA CO 2020-03 Yes by [facility] 16 COMBINATIO [place] 11:05: N route. of 45 Medicin e Sevelamer 2020-03 Yes Take by [facility] Carbonate 1-16 mouth. [place] 800 MG TABS 11:05: of 45 Medicin e amlodipine 2020-03 Yes 10mg Take 10 mg [facility] (NORVASC) -16 by mouth [facility] e 10 MG 11:05: daily. of tablet 45 Medicin e carvedilol 2020-03 Yes 12.5mg Take 12.5 [facility] (COREG) 1-16 mg by [place] 12.5 MG 11:05: mouth 2 of tablet 45 times Medicin daily e (with meals). gabapentin 2020-03 Yes 300mg Take 300 [facility] (NEURONTIN) 1-16 mg by [place] 300 MG 11:05: mouth 3 of capsule 45 times Medicin daily. e ASPIRIN 81 2020-03 Yes Take by [facility] OR 1-16 mouth. [place] 11:05: of 45 Medicin e Melatonin 3 2020-03 Yes Take by [facility]urel darnell MG TABS 1-16 mouth. [place] 11:05: of 45 Medicin e Acetaminoph 2020-03 Yes Take by [facility] darnell en 1-16 mouth two [place] (TYLENOL) 11:05: times of 325 MG CAPS 45 daily. Medici n e Docusate 2020-03 Yes Take by [facility] Sodium 100 1-16 mouth. College MG TABS 11:05: of 45 Medicin e senna-docus 2020-03 Yes 1{tbl} Take 1 [facility] ate 1-16 Tablet by [place] (PERICOLACE 11:05: mouth of ) 8.6-50 MG 45 daily. Medici n per tablet e Simethicone 2020-03 Yes Take by Laurel darnell 80 MG TABS 1-16 mouth. [place] 11:05: of 45 Medicin e Glucagon 1 2020-03 Yes Inject [facility] MG/0.2ML 16 into the [place] SOAJ 11:05: skin. of 45 Medicin e dextrose 50 2020-03 Yes once. [facility] % injection 16 [place] 11:05: of 45 Medicin e Glucose 15 2020-03 Yes Take by [facility] g PACK 16 mouth. [place] 11:05: of 45 Medicin e insulin 2020-03 Yes Inject [facility] aspart 16 into the [place] (NOVOLOG) 11:05: skin 3 of 100 UNIT/ML 45 times Medicin injection daily e (before meals). Dextran 2020-03 Yes Apply to [facility] 70-Hypromel 03-22 eye. [place] lose 11:05: of (ARTIFICIAL 45 Medicin TEARS) e 0.1-0.3 % SOLN piperacilli 2020-03 Yes 2.25g Inject [facility] n-tazobacta 16 2.25 g [facility] (ZOSYN) 11:05: into the of 2-0.25 45 vein every Medicin GM/50ML 6 hours. e IVPB atorvastati 2020-03 Yes 40mg Take 40 mg [facility] (LIPITOR) 1-16 by mouth [facility] 40 MG 11:05: daily. of tablet 45 Medicin e ferrous 2020-03 Yes 325mg Take 325 [facility] sulfate 325 1-16 mg by [place] (65 Fe) MG 11:05: mouth of tablet 45 daily. Medicin e insulin 2020-03 Yes Inject [facility] glargine 1-16 into the [place] (LANTUS) 11:05: skin of 100 UNIT/ML 45 nightly. Medi [facility] injection e Epoetin 2020-03 Yes Inject as [facility] Fredy-epbx 16 directed. [facility] (RETACRIT) 11:05: of 3000 45 Medicin UNIT/ML e SOLN SENNA CO 2020-03 Yes by [facility] 0-19 COMBINATIO [place] 15:27: N route. of 58 Medicin e Sevelamer 2020-03 Yes Take by [facility] Carbonate 0-19 mouth. [place] 800 MG TABS 15:27: of 58 Medicin e amlodipine 2020-03 Yes 10mg Take 10 mg [facility] (NORVASC) 0-19 by [facility] 10 MG 15:27: daily. of tablet 58 Medicin e carvedilol 2020-03 Yes 12.5mg Take 12.5 Ton (COREG) 0-19 mg by [place] 12.5 MG 15:27: mouth 2 of tablet 58 times Medicin daily e (with meals). gabapentin 2020-03 Yes 300mg Take 300 [facility] (NEURONTIN) 0-19 mg by [place] 300 MG 15:27: mouth 3 of capsule 58 times Medicin daily. e ASPIRIN 81 2020-03 Yes Take by [facility] [place] 0-19 mouth. [place] 15:27: of 58 Medicin e Melatonin 3 2020-03 Yes Take by Laurel darnell MG TABS 0-19 mouth. [place] 15:27: of 58 Medicin e Acetaminoph 2020-03 Yes Take by Laurel darnell en 0-19 mouth two [place] (TYLENOL) 15:27: times of 325 MG CAPS 58 daily. Medici n e Docusate 2020-03 Yes Take by [facility] Sodium 100 0-19 mouth. [place] MG TABS 15:27: of 58 Medicin e senna-docus 2020-03 Yes 1{tbl} Take 1 [facility] ate 0-19 Tablet by [place] (SENOKOT S) 15:27: mouth of 8.6-50 MG 58 daily. Medicin per tablet e Simethicone 2020-03 Yes Take by [facility] 80 MG TABS 0-19 mouth. [place] 15:27: of 58 Medicin e Glucagon 1 2020-03 Yes Inject [facility] MG/0.2ML 0-19 into the [place] SOAJ 15:27: skin. of 58 Medicin e dextrose 50 2020-03 Yes once. [facility] % injection 0-19 [place] 15:27: of 58 Medicin e Glucose 15 2020-03 Yes Take by [facility] g PACK 0-19 mouth. [place] 15:27: of 58 Medicin e insulin 2020-03 Yes Inject Ton aspart 0-19 into the [place] (NOVOLOG) 15:27: skin 3 of 100 UNIT/ML 58 times Medicin injection daily e (before meals). Dextran 2020-03 Yes Apply to [facility] 70-Hypromel 0-19 eye. College lose 15:27: of (ARTIFICIAL 58 Medicin TEARS) e 0.1-0.3 % SOLN piperacilli 2020-03 Yes 2.25g Inject [facility] n-tazobacta 0-19 2.25 g [facility] m (ZOSYN) 15:27: into the of 2-0.25 58 vein every Medicin GM/50ML 6 hours. e IVPB atorvastati 2020-03 Yes 40mg Take 40 mg Ton n (LIPITOR) 0-19 by mouth Alexia ege 40 MG 15:27: daily. of tablet 58 Medicin e ferrous 2020-03 Yes 325mg Take 325 [facility] sulfate 325 0-19 mg by [place] (65 Fe) MG 15:27: mouth of tablet 58 daily. Medicin e insulin 2020-03 Yes Inject Ton glargine 0-19 into the College (LANTUS) 15:27: skin of 100 UNIT/ML 58 nightly. Medi greyson injection e Epoetin 2020-03 Yes Inject as [facility] Fredy-epbx 0-19 directed. [facility] ge (RETACRIT) 15:27: of 3000 58 Medicin UNIT/ML e SOLN SENNA CO Yes by [facility] 11-25 COMBINAO [place] 14:32: N route. of 28 Medicin e Sevelamer Yes Take by [facility]llo r Carbonate 11-25 mouth. [place] 800 MG TABS 14:32: of 28 Medicin e amlodipine Yes 10mg Take 10 mg [facility] (NORVASC) - by mouth Colleg [facility] 10 MG 14:32: daily. of tablet 28 Medicin e carvedilol Yes 12.5mg Take 12.5 [facility] (COREG) 9-21 mg by [place] 12.5 MG 14:32: mouth 2 of tablet 28 times Medicin daily e (with meals). gabapentin Yes 300mg Take 300 [facility] (NEURONTIN) 9- mg by [place] 300 MG 14:32: mouth 3 of capsule 28 times Medicin daily. e ASPIRIN 81 Yes Take by [facility] OR 11-25 mouth. [place] 14:32: of 28 Medicin e Melatonin 3 Yes Take by Laurel darnell MG TABS 11-25 mouth. [place] 14:32: of 28 Medicin e Acetaminoph Yes Take by Laurel darnell en - mouth two [place] (TYLENOL) 14:32: times of 325 MG CAPS 28 daily. Medici n e Docusate Yes Take by [facility] Sodium 100 - mouth. [place] MG TABS 14:32: of 28 Medicin e senna-docus Yes 1{tbl} Take 1 [facility] ate - Tablet by [place] (SENOKOT S) 14:32: mouth of 8.6-50 MG 28 daily. Medicin per tablet e Simethicone Yes Take by [facility] darnell 80 MG TABS 11-25 mouth. [place] 14:32: of 28 Medicin e Glucagon 1 Yes Inject [facility] MG/0.2ML 11-25 into the [place] SOA 14:32: skin. of 28 Medicin e dextrose 50 Yes once. [facility] % injection 11-25 [place] 14:32: of 28 Medicin e Glucose 15 Yes Take by [facility] g PACK 11-25 mouth. [place] 14:32: of 28 Medicin e insulin Yes Inject [facility] aspart 11-25 into the [place] (NOVOLOG) 14:32: skin 3 of 100 UNIT/ML 28 times Medicin injection daily e (before meals). Dextran Yes Apply to [facility] 70-Hypromel 11-25 eye. [place] lose 14:32: of (ARTIFICIAL 28 Medicin TEARS) e 0.1-0.3 % SOLN piperacilli Yes 2.25g Inject [facility] n-tazobacta 11-25 2.25 g [facility] (ZOSYN) 14:32: into the of 2-0.25 28 vein every Medicin GM/50ML 6 hours. e IVPB ferrous Yes 325mg Take 325 [facility] sulfate 325 - mg by [place] (65 Fe) MG 14:32: mouth of tablet 28 daily. Medicin e insulin Yes Inject Ton glargine 11-25 into the [place] (LANTUS) 14:32: skin of 100 UNIT/ML 28 nightly. Medi greyson injection e Epoetin Yes Inject as [facility] Fredy-epbx 11-25 directed. [facility] (RETACRIT) 14:32: of 3000 28 Medicin UNIT/ML e SOLN SENNA CO Yes by [facility] 11-25 COMBINAO [place] 14:32: N route. of Medicin e Sevelamer Yes Take by [facility] Carbonate - mouth. [place] 800 MG TABS 14:32: of 28 Medicin e amlodipine Yes 10mg Take 10 mg [facility] (NORVASC) 11-25 by mouth Colleg e 10 MG 14:32: daily. of tablet 28 Medicin e carvedilol Yes 12.5mg Take 12.5 [facility] (COREG) - mg by [place] 12.5 MG 14:32: mouth 2 of tablet 28 times Medicin daily e (with meals). gabapentin Yes 300mg Take 300 [facility] (NEURONTIN) - mg by [place] 300 MG 14:32: mouth 3 of capsule 28 times Medicin daily. e ASPIRIN 81 Yes Take by [facility] OR 11-25 mouth. [place] 14:32: of 28 Medicin e Melatonin 3 Yes Take by Laurel darnell MG TABS 11-25 mouth. [place] 14:32: of 28 Medicin e Acetaminoph Yes Take by Laurel darnell en - mouth [facility] (TYLENOL) 14:32: times of 325 MG CAPS 28 daily. Medici n e Docusate Yes Take by [facility] Sodium 100 11-25 mouth. [facility] MG TABS 14:32: of 28 Medicin e senna-docus Yes 1{tbl} Take 1 [facility] ate - Tablet by [place] (SENOKOT S) 14:32: mouth of 8.6-50 MG 28 daily. Medicin per tablet e Simethicone Yes Take by Laurel darnell 80 MG TABS 11-25 mouth. [place] 14:32: of 28 Medicin e Glucagon 1 Yes Inject [facility] MG/0.2ML 11-25 into the [place] SOAJ 14:32: skin. of 28 Medicin e dextrose 50 Yes once. [facility] % injection 11-25 [place] 14:32: of 28 Medicin e Glucose 15 Yes Take by [facility] g PACK 11-25 mouth. [place] 14:32: of 28 Medicin e insulin Yes Inject [facility] aspart 11-25 into the [place] (NOVOLOG) 14:32: skin 3 of 100 UNIT/ML 28 times Medicin injection daily e (before meals). Dextran Yes Apply to [facility] 70-Hypromel 11-25 eye. [place] lose 14:32: of (ARTIFICIAL 28 Medicin TEARS) e 0.1-0.3 % SOLN piperacilli Yes 2.25g Inject [facility] n-tazobacta 11-25 2.25 g [facility] (ZOSYN) 14:32: into the of 2-0.25 28 vein every Medicin GM/50ML 6 hours. e IVPB ferrous Yes 325mg Take 325 [facility] sulfate 325 11-25 mg by [place] (65 Fe) MG 14:32: mouth of tablet 28 daily. Medicin e insulin Yes Inject [facility] glargine 11-25 into the [place] (LANTUS) 14:32: skin of 100 UNIT/ML 28 nightly. Medi greyson injection e Epoetin Yes Inject as [facility] Fredy-epbx 11-25 directed. [facility] ge (RETACRIT) 14:32: of 3000 28 Medicin UNIT/ML e SOLN atorvastati Yes 40mg Take 40 mg [facility] n (LIPITOR) 8-24 by mouth Alexia ege 40 MG 16:32: daily. of tablet 09 Medicin e atorvastati Yes 40mg Take 40 mg Ton n (LIPITOR) 8-24 by mouth Alexia ege 40 MG 16:32: daily. of tablet 09 Medicin e SENNA CO Yes [facility] of 09 Medicin e Sevelamer Yes Take by [facility]llo r Carbonate 10-28 mouth. [place] 800 MG TABS 16:32: of 09 Medicin e amlodipine Yes 10mg Take 10 mg [facility] (NORVASC) 8-24 by mouth Colleg e 10 MG 16:32: daily. of tablet 09 Medicin e carvedilol Yes 12.5mg Take 12.5 [facility] (COREG) 8-24 mg by [place] 12.5 MG 16:32: mouth 2 of tablet 09 times Medicin daily e (with meals). gabapentin 0 Yes 300mg Take 300 [facility] (NEURONTIN) 8-24 mg by [place] 300 MG 16:32: mouth 3 of capsule 09 times Medicin daily. e ASPIRIN 81 Yes Take by [facility] 8-24 mouth. [place] 16:32: of 09 Medicin e Melatonin 3 Yes Take by Laurel darnell MG TABS 8-24 mouth. [place] 16:32: of 09 Medicin e Acetaminoph Yes Take by Laurel darnell en 8-24 mouth two [place] (TYLENOL) 16:32: times of 325 MG CAPS 09 daily. Medici n e Docusate Yes Take by [facility] Sodium 100 8-24 mouth. [facility] MG TABS 16:32: of 09 Medicin e senna-docus Yes 1{tbl} Take 1 [facility] ate 8-24 Tablet by [place] (SENOKOT S) 16:32: mouth of 8.6-50 MG 09 daily. Medicin per tablet e Simethicone Yes Take by Laurel darnell 80 MG TABS 8-24 mouth. [place] 16:32: of 09 Medicin e Glucagon 1 Yes Inject [facility] MG/0.2ML 10-28 into the [place] SOAJ 16:32: skin. of 09 Medicin e dextrose 50 Yes once. [facility] % injection 10-28 [place] 16:32: of 09 Medicin e Glucose 15 Yes Take by [facility] or g PACK 10-28 mouth. [place] 16:32: of 09 Medicin e insulin Yes Inject [facility] aspart 10-28 into the [place] (NOVOLOG) 16:32: skin 3 of 100 UNIT/ML 09 times Medicin injection daily e (before meals). Dextran Yes Apply to [facility] 70-Hypromel 10-28 eye. [place] lose 16:32: of (ARTIFICIAL 09 Medicin TEARS) e 0.1-0.3 % SOLN piperacilli Yes 2.25g Inject [facility] n-tazobacta 824 2.25 g [facility] (ZOSYN) 16:32: into the of 2-0.25 09 vein every Medicin GM/50ML 6 hours. e IVPB atorvastati Yes 40mg Take 40 mg [facility] n (LIPITOR) 8-24 by mouth Alexia ege 40 MG 16:32: daily. of tablet 09 Medicin e ferrous Yes 325mg Take 325 [facility] sulfate 325 8-24 mg by [place] (65 Fe) MG 16:32: mouth of tablet 09 daily. Medicin e insulin Yes Inject [facility] glargine 24 into the College (LANTUS) 16:32: skin of 100 UNIT/ML 09 nightly. Medi greyson injection e Epoetin Yes Inject as [facility] Fredy-epbx 824 directed. [facility] (RETACRIT) 16:32: of 3000 09 Medicin UNIT/ML e SOLN SENNA CO Yes by Ton 8-10 COMBINATIO [place] 16:21: N route. of 31 Medicin e Sevelamer Yes Take by [facility] Carbonate 8-10 mouth. [place] 800 MG TABS 16:21: of 31 Medicin e amlodipine Yes 10mg Take 10 mg [facility] (NORVASC) 8-10 by mouth Colleg e 10 MG 16:21: daily. of tablet 31 Medicin e carvedilol Yes 12.5mg Take 12.5 [facility] (COREG) 8-10 mg by [place] 12.5 MG 16:21: mouth 2 of tablet 31 times Medicin daily e (with meals). gabapentin Yes 300mg Take 300 [facility] (NEURONTIN) 8-10 mg by [place] 300 MG 16:21: mouth 3 of capsule 31 times Medicin daily. e ASPIRIN 81 Yes Take by [facility] 8-10 mouth. [place] 16:21: of 31 Medicin e Melatonin 3 Yes Take by Laurel darnell MG TABS 8-10 mouth. [place] 16:21: of 31 Medicin e Acetaminoph Yes Take by Laurel darnell en 8-10 mouth two College (TYLENOL) 16:21: times of 325 MG CAPS 31 daily. Medici n e Docusate Yes Take by [facility] Sodium 100 8-10 mouth. [place] MG TABS 16:21: of 31 Medicin e senna-docus 0 Yes 1{tbl} Take 1 [facility] ate 8-10 Tablet by [place] (SENOKOT S) 16:21: mouth of 8.6-50 MG 31 daily. Medicin per tablet e Simethicone Yes Take by Laurel darnell 80 MG TABS 8-10 mouth. [place] 16:21: of 31 Medicin e Glucagon 1 Yes Inject [facility] MG/0.2ML 8-10 into the [place] SOA 16:21: skin. of 31 Medicin e dextrose 50 Yes once. [facility] % injection 8-10 [place] 16:21: of 31 Medicin e Glucose 15 Yes Take by [facility] PACK 8-10 mouth. [place] 16:21: of 31 Medicin e insulin Yes Inject [facility] aspart 8-10 into the [place] (NOVOLOG) 16:21: skin 3 of 100 UNIT/ML 31 times Medicin injection daily e (before meals). Dextran Yes Apply to [facility] 70-Hypromel 8-10 eye. [place] lose 16:21: of (ARTIFICIAL 31 Medicin TEARS) e 0.1-0.3 % SOLN piperacilli Yes 2.25g Inject [facility] n-tazobacta 8-10 2.25 g [facility] (ZOSYN) 16:21: into the of 2-0.25 31 vein every Medicin GM/50ML 6 hours. e IVPB atorvastati Yes 40mg Take 40 mg Ton n (LIPITOR) 8-10 by mouth Alexia ege 40 MG 16:21: daily. of tablet 31 Medicin e ferrous 0 Yes 325mg Take 325 [facility] sulfate 325 8-10 mg by [place] (65 Fe) MG 16:21: mouth of tablet 31 daily. Medicin e insulin Yes Inject [facility] glargine 8-10 into the [place] (LANTUS) 16:21: skin of 100 UNIT/ML 31 nightly. Medi greyson injection e Epoetin Yes Inject as [facility] Fredy-epbx 8-10 directed. [facility] (RETACRIT) 16:21: of 3000 31 Medicin UNIT/ML e SOLN NIFEdipine 2021- No 90mg QD Take [address] [facility] (PROCARDIA- 10-04 01-10 tablet (90 L ukes XL) 90 MG 00:00: 00:00 mg total) Me dical (OSM) 24 hr 00 :00 [facility] mouth [facility] tablet daily. NIFEdipine 2021- No 90mg QD Take [address] [facility] (PROCARDIA- 10-04-10 tablet (90 L ukes XL) 90 MG 00:00: 00:00 mg total) Me dical (OSM) 24 hr 00 :00 by mouth Cent [facility] tablet daily. sevelamer 2021- No 800mg Take [address] [facility] (RENVELA) 10-03-30 tablet [facility] mg 00:00: 23:59 (800 mg Medical tablet 00 :00 total) by Center mouth 3 (three) times daily with meals Take 2 tablets by mouth 3 times a day with meals and 1 tablet twice a day with snacks. sevelamer 2021- No 800mg Take [address] [facility] (RENVELA) 10-03-30 tablet [facility] 800 mg 00:00: 23:59 (800 mg Medical tablet 00 :00 total) by Center mouth 3 (three) times daily with meals Take 2 tablets by mouth 3 times a day with meals and 1 tablet twice a day with snacks. sevelamer 2021- No 800mg Take [address] [facility] (RENVELA) -03 10-30 tablet [facility] 800 mg 00:00: 23:59 (800 mg Medical tablet 00 :00 total) by Center mouth 3 (three) times daily with meals Take 2 tablets by mouth 3 times a day with meals and 1 tablet twice a day with snacks. sevelamer 2020-2021- No 800mg Take [address] [facility] (RENVELA) -03 10-30 tablet [facility] 800 mg 00:00: 23:59 (800 mg Medical tablet 00 :00 total) by Center mouth 3 (three) times daily with meals Take 2 tablets by mouth 3 times a day with meals and 1 tablet twice a day with snacks. hydrALAZINE 2021- No 25mg Take [address] [facility] (APRESOLINE 7-30 01-10 tablet (25 L ukes ) 25 MG 00:00: 00:00 mg total) Medi [place] tablet 00 :00 by mouth Center every 8 (eight) hours. hydrALAZINE 2021- No 25mg Take [address] [facility] (APRESOLINE 7-30 01-10 tablet (25 L ukes ) 25 MG 00:00: 00:00 mg total) Medi magdaleno tablet 00 :00 by mouth Center every 8 (eight) hours. SENNA CO Yes by [facility] - COMBINATIO [place] 16:10: N route. of 22 Medicin e Sevelamer Yes Take by Laurello r Carbonate - mouth. [place] 800 MG TABS 16:10: of 22 Medicin e amlodipine Yes 10mg Take 10 mg [facility] (NORVASC) 6- by mouth [facility] 10 MG 16:10: daily. of tablet 22 Medicin e carvedilol Yes 12.5mg Take 12.5 [facility] (COREG) 6-29 mg by [place] 12.5 MG 16:10: mouth 2 of tablet 22 times Medicin daily e (with meals). gabapentin Yes 300mg Take 300 [facility] (NEURONTIN) 6-29 mg by [place] 300 MG 16:10: mouth 3 of capsule 22 times Medicin daily. e ASPIRIN 81 Yes Take by [facility] OR - mouth. [place] 16:10: of 22 Medicin e Melatonin 3 Yes Take by Laurel darnell MG TABS -29 mouth. [place] 16:10: of 22 Medicin e Acetaminoph Yes Take by Laurel darnell en -29 mouth two [facility] (TYLENOL) 16:10: times of 325 MG CAPS 22 daily. Medici n e Docusate Yes Take by [facility] Sodium 100 6- mouth. [facility] MG TABS 16:10: of 22 Medicin e senna-docus Yes 1{tbl} Take 1 [facility] ate 6-29 Tablet by [place] (SENOKOT S) 16:10: mouth of 8.6-50 MG 22 daily. Medicin per tablet e Simethicone Yes Take by Laurel darnell 80 MG TABS 09-02 mouth. [place] 16:10: of 22 Medicin e Glucagon 1 Yes Inject [facility] MG/0.2ML 09-02 into the [place] SOA 16:10: skin. of 22 Medicin e dextrose 50 Yes once. [facility] % injection 09-02 [place] 16:10: of 22 Medicin e Glucose 15 Yes Take by [facility] g PACK 09-02 mouth. [place] 16:10: of 22 Medicin e insulin Yes Inject [facility] aspart 09-02 into the [place] (NOVOLOG) 16:10: skin 3 of 100 UNIT/ML 22 times Medicin injection daily e (before meals). Dextran Yes Apply to [facility] 70-Hypromel 09-02 eye. [place] lose 16:10: of (ARTIFICIAL 22 Medicin TEARS) e 0.1-0.3 % SOLN piperacilli Yes 2.25g Inject [facility] n-tazobacta 09-02 2.25 g [facility] m (ZOSYN) 16:10: into the of 2-0.25 22 vein every Medicin GM/50ML 6 hours. e IVPB atorvastati Yes 40mg Take 40 mg [facility] n (LIPITOR) 09-02 by mouth Alexia ege 40 MG 16:10: daily. of tablet 22 Medicin e ferrous Yes 325mg Take 325 [facility] sulfate 325 - mg by [place] (65 Fe) MG 16:10: mouth of tablet 22 daily. Medicin e insulin Yes Inject Ton glargine 09-02 into the [place] (LANTUS) 16:10: skin of 100 UNIT/ML 22 nightly. Medi greyson injection e Epoetin Yes Inject as [facility] Fredy-epbx 09-02 directed. [facility] (RETACRIT) 16:10: of 3000 22 Medicin UNIT/ML e SOLN SENNA CO Yes [facility] of 10 Medicin e Sevelamer Yes Take by [facility] Carbonate 5-18 mouth. [place] 800 MG TABS 13:26: of 10 Medicin e amlodipine Yes 10mg Take 10 mg [facility] (NORVASC) 5-18 by mouth Colleg e 10 MG 13:26: daily. of tablet 10 Medicin e carvedilol Yes 12.5mg Take 12.5 [facility] (COREG) 5-18 mg by [place] 12.5 MG 13:26: mouth 2 of tablet 10 times Medicin daily e (with meals). gabapentin Yes 300mg Take 300 [facility] (NEURONTIN) 5-18 mg by [place] 300 MG 13:26: mouth 3 of capsule 10 times Medicin daily. e ASPIRIN 81 Yes Take by [facility] OR 5-18 mouth. [place] 13:26: of 10 Medicin e Melatonin 3 Yes Take by Laurel darnell MG TABS 5-18 mouth. [place] 13:26: of 10 Medicin e Acetaminoph Yes Take by Laurel darnell en 5-18 mouth two [place] (TYLENOL) 13:26: times of 325 MG CAPS 10 daily. Medici n e Docusate Yes Take by [facility] Sodium 100 5-18 mouth. College MG TABS 13:26: of 10 Medicin e senna-docus Yes 1{tbl} Take 1 [facility] ate 5-18 Tablet by [place] (SENOKOT S) 13:26: mouth of 8.6-50 MG 10 daily. Medicin per tablet e Simethicone Yes Take by Laurel darnell 80 MG TABS 5-18 mouth. [place] 13:26: of 10 Medicin e Glucagon 1 Yes Inject [facility] MG/0.2ML 5-18 into the [place] SOAJ 13:26: skin. of 10 Medicin e dextrose 50 Yes once. [facility] % injection -18 [place] 13:26: of 10 Medicin e Glucose 15 Yes Take by [facility] g PACK 5-18 mouth. [place] 13:26: of 10 Medicin e insulin Yes Inject [facility] aspart 5-18 into the College (NOVOLOG) 13:26: skin 3 of 100 UNIT/ML 10 times Medicin injection daily e (before meals). Dextran Yes Apply to [facility] 70-Hypromel -18 eye. College lose 13:26: of (ARTIFICIAL 10 Medicin TEARS) e 0.1-0.3 % SOLN piperacilli Yes 2.25g Inject [facility] n-tazobacta 18 2.25 g [facility] m (ZOSYN) 13:26: into the of 2-0.25 10 vein every Medicin GM/50ML 6 hours. e IVPB atorvastati Yes 40mg Take 40 mg [facility] n (LIPITOR) 5-18 by mouth Alexia ege 40 MG 13:26: daily. of tablet 10 Medicin e ferrous Yes 325mg Take 325 [facility] sulfate 325 5-18 mg by [place] (65 Fe) MG 13:26: mouth of tablet 10 daily. Medicin e insulin Yes Inject [facility] glargine 18 into the [place] (LANTUS) 13:26: skin of 100 UNIT/ML 10 nightly. Medi greyson injection e Epoetin Yes Inject as [facility] Fredy-epbx -18 directed. [facility] (RETACRIT) 13:26: of 3000 10 Medicin UNIT/ML e SOLN SENNA CO Yes by [facility] 5[facility] N route. of 10 Medicin e Sevelamer Yes Take by [facility] r Carbonate 5-18 mouth. [place] 800 MG TABS 13:26: of 10 Medicin e amlodipine Yes 10mg Take 10 mg [facility] (NORVASC) 5-18 by mouth Colleg e 10 MG 13:26: daily. of tablet 10 Medicin e carvedilol Yes 12.5mg Take 12.5 [facility] (COREG) 5-18 mg by [place] 12.5 MG 13:26: mouth 2 of tablet 10 times Medicin daily e (with meals). gabapentin Yes 300mg Take 300 [facility] (NEURONTIN) 5-18 mg by [place] 300 MG 13:26: mouth 3 of capsule 10 times Medicin daily. e ASPIRIN 81 Yes Take by [facility] OR 5-18 mouth. [place] 13:26: of 10 Medicin e Melatonin 3 Yes Take by Laurel darnell MG TABS 5-18 mouth. [place] 13:26: of 10 Medicin e Acetaminoph Yes Take by Laurel darnell en 5-18 mouth two [place] (TYLENOL) 13:26: times of 325 MG CAPS 10 daily. Medici n e Docusate Yes Take by [facility] Sodium 100 5-18 mouth. [place] MG TABS 13:26: of 10 Medicin e senna-docus Yes 1{tbl} Take 1 [facility] ate 5-18 Tablet by [place] (SENOKOT S) 13:26: mouth of 8.6-50 MG 10 daily. Medicin per tablet e Simethicone Yes Take by Laurel darnell 80 MG TABS 5-18 mouth. [place] 13:26: of 10 Medicin e Glucagon 1 Yes Inject [facility] MG/0.2ML 5-18 into the [place] SOA 13:26: skin. of 10 Medicin e dextrose 50 Yes once. [facility] % injection 07-22 [place] 13:26: of 10 Medicin e Glucose 15 Yes Take by [facility] g PACK -18 mouth. [place] 13:26: of 10 Medicin e insulin Yes Inject [facility] aspart -18 into the [place] (NOVOLOG) 13:26: skin 3 of 100 UNIT/ML 10 times Medicin injection daily e (before meals). Dextran Yes Apply to [facility] 70-Hypromel -18 eye. [place] lose 13:26: of (ARTIFICIAL 10 Medicin TEARS) e 0.1-0.3 % SOLN piperacilli Yes 2.25g Inject [facility] darnell n-tazobacta 5-18 2.25 g [facility] (ZOSYN) 13:26: into the of 2-0.25 10 vein every Medicin GM/50ML 6 hours. e IVPB atorvastati Yes 40mg Take 40 mg [facility] n (LIPITOR) 5-18 by mouth Alxeia ege 40 MG 13:26: daily. of tablet 10 Medicin e ferrous 2021-0 Yes 325mg Take 325 [facility] sulfate 325 5-18 mg by [place] (65 Fe) MG 13:26: mouth of tablet 10 daily. Medicin e insulin Yes Inject [facility] glargine 5-18 into the College (LANTUS) 13:26: skin of 100 UNIT/ML 10 nightly. Medi greyson injection e Epoetin Yes Inject as [facility] Fredy-epbx 5-18 directed. [facility] (RETACRIT) 13:26: of 3000 [...] 25mg Take 25 mg [facility] (APRESOLINE 4-20 -20 by mouth 3 C oltegan ) 25 MG 20:48: 00:00 times of tablet 19 :00 daily. Medicin e folic 2020-0 Yes 1{tbl} QD Take [address] [facility] acid-multiv 4-15 tablet by Sylvia es itamins 00:00: mouth Medical (NEPHRO-VIT 00 daily. Center E) 0.8 mg Tab tablet folic 2020-0 Yes 1{tbl} QD Take [address] [facility] acid-multiv 4-15 tablet by [facility] it[facility] 00:00: mouth Medical (NEPHRO-VIT 00 daily. Center E) 0.8 mg Tab tablet folic 2020-0 Yes 1{tbl} QD Take [address] [facility] acid-multiv 4-15 tablet by [facility] it[facility] 00:00: mouth Medical (NEPHRO-VIT 00 daily. Center E) 0.8 mg Tab tablet folic 2020-0 Yes 1{tbl} QD Take [address] [facility] acid-multiv 4-15 tablet by [facility] itamins 00:00: mouth Medical (NEPHRO-VIT 00 daily. Center E) 0.8 mg Tab tablet hydrALAZINE 2020-0 Yes [facility] (APRESOLINE 4-14 College ) 100 MG 00:00: of tablet 00 Medicin e NIFEdipine 2020-0 Yes 60mg Take 60 mg [facility] (ADALAT CC) 4-14 by mouth Alexia ege 60 MG CR 00:00: daily. of tablet 00 Medicin e Tamsulosin 2020-0 Yes .4mg Take 0.4 [facility] HCl 0.4 MG 4-14 mg by College CAPS 00:00: mouth of 00 daily. Medicin e hydrALAZINE 1-0 Yes [facility] (APRESOLINE 4-14 [place] ) 100 MG 00:00: of tablet 00 Medicin e NIFEdipine 2020-0 Yes 60mg Take 60 mg [facility] (ADALAT CC) 4-14 by mouth Alexia ege 60 MG CR 00:00: daily. of tablet 00 Medicin e Tamsulosin 2020-0 Yes .4mg Take 0.4 [facility] HCl 0.4 MG 4-14 mg by College CAPS 00:00: mouth of 00 daily. Medicin e hydrALAZINE 1-0 Yes [facility] (APRESOLINE 4-14 [place] ) 100 MG 00:00: of tablet 00 Medicin e NIFEdipine 2020-0 Yes 60mg Take 60 mg [facility] (ADALAT CC) 4-14 by mouth Alexia ege 60 MG CR 00:00: daily. of tablet 00 Medicin e Tamsulosin 2020-0 Yes .4mg Take 0.4 [facility] HCl 0.4 MG 4-14 mg by [facility] CAPS 00:00: mouth of 00 daily. Medicin e hydrALAZINE 2020-0 Yes [facility] (APRESOLINE 4-14 [place] ) 100 MG 00:00: of tablet 00 Medicin e NIFEdipine 2020-0 Yes 60mg Take 60 mg [facility] (ADALAT CC) 4-14 by mouth Alexia ege 60 MG CR 00:00: daily. of tablet 00 Medicin e Tamsulosin 2020-0 Yes .4mg Take 0.4 [facility] HCl 0.4 MG 4-14 mg by [facility] CAPS 00:00: mouth of 00 daily. Medicin e hydrALAZINE 2020-0 Yes [facility] (APRESOLINE 4-14 [place] ) 100 MG 00:00: of tablet 00 Medicin e NIFEdipine 2020-0 Yes 60mg Take 60 mg [facility] (ADALAT CC) 4-14 by mouth Alexia ege 60 MG CR 00:00: daily. of tablet 00 Medicin e Tamsulosin 2020-0 Yes .4mg Take 0.4 [facility] HCl 0.4 MG 4-14 mg by [facility] CAPS 00:00: mouth of 00 daily. Medicin e hydrALAZINE 2021-0 Yes [facility] (APRESOLINE 14 [place] ) 100 MG 00:00: of tablet 00 Medicin e NIFEdipine 2020-0 Yes 60mg Take 60 mg [facility] (ADALAT CC) 4-14 by mouth Alexia ege 60 MG CR 00:00: daily. of tablet 00 Medicin e Tamsulosin 2020-0 Yes .4mg Take 0.4 [facility] HCl 0.4 MG 4-14 mg by [employer] [facility] 00:00: mouth of 00 daily. Medicin e hydrALAZINE 2020-0 Yes [facility] (APRESOLINE 14 [place] ) 100 MG 00:00: of tablet 00 Medicin e NIFEdipine 2020-0 Yes 60mg Take 60 mg [facility] (ADALAT CC) 4-14 by mouth Alexia ege 60 MG CR 00:00: daily. of tablet 00 Medicin e Tamsulosin 2020-0 Yes .4mg Take 0.4 [facility]urel darnell HCl 0.4 MG 4-14 mg by [employer] CAPS 00:00: mouth of 00 daily. Medicin e hydrALAZINE 2020-0 Yes [facility] (APRESOLINE 06-18 [place] ) 25 MG 00:00: of tablet 00 Medicin e NIFEdipine 2020-0 Yes 60mg Take 60 mg [facility] (ADALAT CC) 4-14 by mouth [facility]ia [facility] 60 MG CR 00:00: daily. of tablet 00 Medicin e Tamsulosin 2020-0 Yes .4mg Take 0.4 [facility] HCl 0.4 MG 4-14 mg by [facility] CAPS 00:00: mouth of 00 daily. Medicin e hydrALAZINE 2020-0 Yes [facility] (APRESOLINE 06-18 [place] ) 25 MG 00:00: of tablet 00 Medicin e Tamsulosin 2020-0 Yes .4mg Take 0.4 [facility] HCl 0.4 MG 4-14 mg by [facility] CAPS 00:00: mouth of 00 daily. Medicin e hydrALAZINE 1-0 Yes [facility] (APRESOLINE 14 [place] ) 25 MG 00:00: of tablet 00 Medicin e Tamsulosin 2020-0 Yes .4mg Take 0.4 [facility] HCl 0.4 MG 4-14 mg by [facility] CAPS 00:00: mouth of 00 daily. Medicin e hydrALAZINE 1-0 Yes [facility] (APRESOLINE 06-18 [place] ) 25 MG 00:00: of tablet 00 Medicin e Tamsulosin 2020-0 Yes .4mg Take 0.4 [facility] HCl 0.4 MG 4-14 mg by [facility] CAPS 00:00: mouth of 00 daily. Medicin e hydrALAZINE 1-0 Yes [facility] (APRESOLINE 414 [place] ) 25 MG 00:00: of tablet 00 Medicin e Tamsulosin 1-0 Yes .4mg Take 0.4 [facility] HCl 0.4 MG 4-14 mg by [facility] CAPS 00:00: mouth of 00 daily. Medicin e hydrALAZINE 1-0 Yes [facility] (APRESOLINE 14 [place] ) 25 MG 00:00: of tablet 00 Medicin e Tamsulosin 2020-0 Yes .4mg Take 0.4 [facility] HCl 0.4 MG 4-14 mg by [facility] CAPS 00:00: mouth of 00 daily. Medicin e hydrALAZINE 1-0 Yes [facility] (APRESOLINE 06-18 [place] ) 100 MG 00:00: of tablet 00 Medicin e NIFEdipine 2020-0 Yes 60mg Take 60 mg [facility] (ADALAT CC) 4-14 by mouth [facility] 60 MG CR 00:00: daily. of tablet 00 Medicin e Tamsulosin 2020-0 Yes .4mg Take 0.4 [facility] HCl 0.4 MG 4-14 mg by [facility] CAPS 00:00: mouth of 00 daily. Medicin e hydrALAZINE 1-0 Yes [facility] (APRESOLINE 14 [place] ) 100 MG 00:00: of tablet 00 Medicin e hydrALAZINE 2020-0 Yes [facility] (APRESOLINE 414 [place] ) 100 MG 00:00: of tablet 00 Medicin e NIFEdipine 1-0 Yes 60mg Take 60 mg [facility] (ADALAT CC) 4-14 by mouth [facility] 60 MG CR 00:00: daily. of tablet 00 Medicin e Tamsulosin 2020-0 Yes .4mg Take 0.4 [facility] HCl 0.4 MG 4-14 mg by [facility] CAPS 00:00: mouth of 00 daily. Medicin e hydrALAZINE 1-0 Yes [facility] (APRESOLINE 414 [place] ) 100 MG 00:00: of tablet 00 Medicin e NIFEdipine 2021-0 Yes 60mg Take 60 mg [facility] (ADALAT CC) 4-14 by mouth [facility] 60 MG CR 00:00: daily. of tablet 00 Medicin e Tamsulosin 2020-0 Yes .4mg Take 0.4 [facility] HCl 0.4 MG 4-14 mg by [facility] CAPS 00:00: mouth of 00 daily. Medicin e hydrALAZINE 2020-0 Yes [facility] (APRESOLINE 4-14 [place] ) 100 MG 00:00: of tablet 00 Medicin e NIFEdipine 2020-0 Yes 60mg Take 60 mg [facility] (ADALAT CC) 4-14 by mouth [facility] 60 MG CR 00:00: daily. of tablet 00 Medicin e Tamsulosin 2020-0 Yes .4mg Take 0.4 [facility] HCl 0.4 MG 4-14 mg by [facility] CAPS 00:00: mouth of 00 daily. Medicin e hydrALAZINE 2020-0 Yes [facility] (APRESOLINE 4-14 [place] ) 100 MG 00:00: of tablet 00 Medicin e NIFEdipine 2020-0 Yes 60mg Take 60 mg [facility] (ADALAT CC) 4-14 by mouth [facility] 60 MG CR 00:00: daily. of tablet 00 Medicin e Tamsulosin 2020-0 Yes .4mg Take 0.4 [facility] HCl 0.4 MG 4-14 mg by [facility] CAPS 00:00: mouth of 00 daily. Medicin e hydrALAZINE 2020-0 Yes [facility] (APRESOLINE 4-14 [place] ) 100 MG 00:00: of tablet 00 Medicin e NIFEdipine 2020-0 Yes 60mg Take 60 mg [facility] (ADALAT CC) 4-14 by mouth [facility] e[facility] 60 MG CR 00:00: daily. of tablet 00 Medicin e Tamsulosin 2020-0 Yes .4mg Take 0.4 [facility] HCl 0.4 MG 4-14 mg by [facility] CAPS 00:00: mouth of 00 daily. Medicin e NIFEdipine 2020-0 2- No 60mg Take 60 mg [facility] (ADALAT CC) 4-14 08-04 by mouth [facility] 60 MG CR 00:00: 00:00 daily. of tablet 00 :00 Medicin e NIFEdipine 2020-0 2- No 60mg Take 60 mg [facility] (ADALAT CC) 4-14 08-04 by mouth [facility] 60 MG CR 00:00: 00:00 daily. of tablet 00 :00 Medicin e SENNA CO 0 Yes by Ton 3-24 COMBINATIO [place] 22:07: N route. of 59 Medicin e hydrALAZINE 0 Yes 25mg Take 25 mg [facility] (APRESOLINE 3-24 by mouth 3 [facility] ) 25 MG 22:07: times of tablet 59 daily. Medicin e Sevelamer Yes Take by [facility] r Carbonate 3-24 mouth. [place] 800 MG TABS 22:07: of 59 Medicin e amlodipine Yes 10mg Take 10 mg [facility] (NORVASC) 3-24 by mouth Colleg e 10 MG 22:07: daily. of tablet 59 Medicin e carvedilol Yes 12.5mg Take 12.5 [facility] (COREG) 3-24 mg by [place] 12.5 MG 22:07: mouth 2 of tablet 59 times Medicin daily e (with meals). gabapentin Yes 300mg Take 300 [facility] (NEURONTIN) 3-24 mg by [place] 300 MG 22:07: mouth 3 of capsule 59 times Medicin daily. e ASPIRIN 81 Yes Take by [facility] OR 3-24 mouth. [place] 22:07: of 59 Medicin e Melatonin 3 Yes Take by Laurel darnell MG TABS 3-24 mouth. [place] 22:07: of 59 Medicin e Acetaminoph Yes Take by [facility] darnell en 3-24 mouth two [place] (TYLENOL) 22:07: times of 325 MG CAPS 59 daily. Medici n e Docusate Yes Take by [facility] Sodium 100 3-24 mouth. College MG TABS 22:07: of 59 Medicin e senna-docus Yes 1{tbl} Take 1 [facility] ate 3-24 Tablet by [place] (SENOKOT S) 22:07: mouth of 8.6-50 MG 59 daily. Medicin per tablet e Simethicone Yes Take by [facility]urel darnell 80 MG TABS 3-24 mouth. [place] 22:07: of 59 Medicin e Glucagon 1 Yes Inject [facility] MG/0.2ML 3-24 into the [place] SOAJ 22:07: skin. of 59 Medicin e dextrose 50 Yes once. [facility] % injection 24 [place] 22:07: of 59 Medicin e Glucose 15 Yes Take by [facility] g PACK 3-24 mouth. [place] 22:07: of 59 Medicin e insulin Yes Inject [facility] aspart 3-24 into the [place] (NOVOLOG) 22:07: skin 3 of 100 UNIT/ML 59 times Medicin injection daily e (before meals). Dextran 0 Yes Apply to [facility] 70-Hypromel 24 eye. [place] lose 22:07: of (ARTIFICIAL 59 Medicin TEARS) e 0.1-0.3 % SOLN piperacilli Yes 2.25g Inject [facility] n-tazobacta 24 2.25 g [facility] (ZOSYN) 22:07: into the of 2-0.25 59 vein every Medicin GM/50ML 6 hours. e IVPB atorvastati Yes 40mg Take 40 mg [facility] (LIPITOR) 3-24 by mouth [facility]ia ege 40 MG 22:07: daily. of tablet 59 Medicin e ferrous Yes 325mg Take 325 [facility] sulfate 325 3-24 mg by [place] (65 Fe) MG 22:07: mouth of tablet 59 daily. Medicin e insulin Yes Inject [facility] glargine -24 into the [place] (LANTUS) 22:07: skin of 100 UNIT/ML 59 nightly. Medi [facility] injection e Epoetin Yes Inject as [facility] Fredy-epbx -24 directed. [facility] (RETACRIT) 22:07: of 3000 59 Medicin UNIT/ML e SOLN [facility] CO [facility] of 59 Medicin e Sevelamer Yes Take by [facility] Carbonate 3-24 mouth. [place] 800 MG TABS 22:07: of 59 Medicin e amlodipine Yes 10mg Take 10 mg [facility] (NORVASC) 3-24 by mouth Colleg e 10 MG 22:07: daily. of tablet 59 Medicin e carvedilol Yes 12.5mg Take 12.5 [facility] (COREG) 3-24 mg by [place] 12.5 MG 22:07: mouth 2 of tablet 59 times Medicin daily e (with meals). gabapentin Yes 300mg Take 300 [facility] (NEURONTIN) 3-24 mg by [place] 300 MG 22:07: mouth 3 of capsule 59 times Medicin daily. e ASPIRIN 81 Yes Take by [facility] OR 3-24 mouth. [place] 22:07: of 59 Medicin e Melatonin 3 Yes Take by [facility]urel darnell MG TABS 3-24 mouth. [place] 22:07: of 59 Medicin e Acetaminoph Yes Take by [facility] darnell en 3-24 mouth two [place] (TYLENOL) 22:07: times of 325 MG CAPS 59 daily. Medici n e Docusate Yes Take by [facility] Sodium 100 3-24 mouth. [place] MG TABS 22:07: of 59 Medicin e senna-docus Yes 1{tbl} Take 1 [facility] ate 3-24 Tablet by [place] (SENOKOT S) 22:07: mouth of 8.6-50 MG 59 daily. Medicin per tablet e Simethicone Yes Take by [facility]urel darnell 80 MG TABS 3-24 mouth. [place] 22:07: of 59 Medicin e Glucagon 1 Yes Inject [facility] MG/0.2ML -24 into the [place] SOAJ 22:07: skin. of 59 Medicin e dextrose 50 0 Yes once. [facility] % injection - [place] 22:07: of 59 Medicin e Glucose 15 Yes Take by [facility] g PACK 3-24 mouth. [place] 22:07: of 59 Medicin e insulin Yes Inject [facility] aspart 3-24 into the [place] (NOVOLOG) 22:07: skin 3 of 100 UNIT/ML 59 times Medicin injection daily e (before meals). Dextran Yes Apply to [facility] 70-Hypromel 3-24 eye. [place] lose 22:07: of (ARTIFICIAL 59 Medicin TEARS) e 0.1-0.3 % SOLN piperacilli Yes 2.25g Inject [facility] n-tazobacta 24 2.25 g [facility] (ZOSYN) 22:07: into the of 2-0.25 59 vein every Medicin GM/50ML 6 hours. e IVPB atorvastati Yes 40mg Take 40 mg [facility] n (LIPITOR) -24 by mouth [facility] e[facility] 40 MG 22:07: daily. of tablet 59 Medicin e ferrous Yes 325mg Take 325 [facility] sulfate 325 3-24 mg by [place] (65 Fe) MG 22:07: mouth of tablet 59 daily. Medicin e insulin Yes Inject [facility] glargine -24 into the College (LANTUS) 22:07: skin of 100 UNIT/ML 59 nightly. Medi greyson injection e Epoetin Yes Inject as [facility] Fredy-epbx -24 directed. [facility] (RETACRIT) 22:07: of 3000 59 Medicin UNIT/ML e SOLN [facility]ENNA CO [facility]. of 38 Medicin e hydrALAZINE Yes 25mg Take 25 mg [facility] (APRESOLINE 09 by mouth 3 [facility] ) 25 MG 22:27: times of tablet 38 daily. Medicin e Sevelamer Yes Take by [facility] Carbonate -09 mouth. [place] 800 MG TABS 22:27: of 38 Medicin e amlodipine Yes 10mg Take 10 mg [facility] (NORVASC) 09 by mouth [facility] 10 MG 22:27: daily. of tablet 38 Medicin e carvedilol Yes 12.5mg Take 12.5 [facility] (COREG) 3-09 mg by [place] 12.5 MG 22:27: mouth 2 of tablet 38 times Medicin daily e (with meals). gabapentin Yes 300mg Take 300 [facility] (NEURONTIN) 3-09 mg by [place] 300 MG 22:27: mouth 3 of capsule 38 times Medicin daily. e ASPIRIN 81 Yes Take by [facility] OR 3-09 mouth. [place] 22:27: of 38 Medicin e Melatonin 3 2021-0 Yes Take by Laurel darnell MG TABS 3-09 mouth. [place] 22:27: of 38 Medicin e Acetaminoph Yes Take by [facility] darnell en 3-09 mouth two [place] (TYLENOL) 22:27: times of 325 MG CAPS 38 daily. Medici n e Docusate Yes Take by [facility] Sodium 100 3-09 mouth. [place] MG TABS 22:27: of 38 Medicin e senna-docus Yes 1{tbl} Take 1 [facility] ate 3- Tablet by [place] (SENOKOT S) 22:27: mouth of 8.6-50 MG 38 daily. Medicin per tablet e Simethicone Yes Take by [facility]urel darnell 80 MG TABS 3- mouth. [place] 22:27: of 38 Medicin e Glucagon 1 Yes Inject [facility] MG/0.2ML 05-13 into the [place] SOAJ 22:27: skin. of 38 Medicin e dextrose 50 Yes once. [facility] % injection 05-13 [place] 22:27: of 38 Medicin e Glucose 15 Yes Take by [facility] g PACK 05-13 mouth. [place] 22:27: of 38 Medicin e insulin Yes Inject [facility] aspart 05-13 into the [place] (NOVOLOG) 22:27: skin 3 of 100 UNIT/ML 38 times Medicin injection daily e (before meals). Dextran Yes Apply to [facility] 70-Hypromel 05-13 eye. [place] lose 22:27: of (ARTIFICIAL 38 Medicin TEARS) e 0.1-0.3 % SOLN piperacilli Yes 2.25g Inject [facility] n-tazobacta 05-13 2.25 g [facility] (ZOSYN) 22:27: into the of 2-0.25 38 vein every Medicin GM/50ML 6 hours. e IVPB atorvastati Yes 40mg Take 40 mg [facility] n (LIPITOR) -09 by mouth [facility] ege 40 MG 22:27: daily. of tablet 38 Medicin e ferrous Yes 325mg Take 325 [facility] sulfate 325 3-09 mg by [place] (65 Fe) MG 22:27: mouth of tablet 38 daily. Medicin e insulin Yes Inject [facility] glargine 05-13 into the College (LANTUS) 22:27: skin of 100 UNIT/ML 38 nightly. Medi [facility] injection e Epoetin Yes Inject as [facility] Fredy-epbx 05-13 directed. [facility] (RETACRIT) 22:27: of 3000 38 Medicin UNIT/ML e SOLN SENNA CO Yes by Ton 2-23 COMBINAO [place] 21:36: N route. of 53 Medicin e hydrALAZINE Yes 25mg Take 25 mg [facility] (APRESOLINE 2-23 by mouth 3 [facility] ) 25 MG 21:36: times of tablet 53 daily. Medicin e Sevelamer Yes Take by [facility] r Carbonate 2-23 mouth. [place] 800 MG TABS 21:36: of 53 Medicin e amlodipine Yes 10mg Take 10 mg [facility] (NORVASC) 2-23 by mouth [facility] e 10 MG 21:36: daily. of tablet 53 Medicin e carvedilol Yes 12.5mg Take 12.5 [facility] (COREG) 2-23 mg by [place] 12.5 MG 21:36: mouth 2 of tablet 53 times Medicin daily e (with meals). gabapentin Yes 300mg Take 300 [facility] (NEURONTIN) 2-23 mg by [place] 300 MG 21:36: mouth 3 of capsule 53 times Medicin daily. e ASPIRIN 81 Yes Take by [facility] OR 2-23 mouth. [place] 21:36: of 53 Medicin e Melatonin 3 Yes Take by Laurel darnell MG TABS 2-23 mouth. [place] 21:36: of 53 Medicin e Acetaminoph Yes Take by Laurel darnell en 2-23 mouth [facility] (TYLENOL) 21:36: times of 325 MG CAPS 53 daily. Medici n e Docusate Yes Take by [facility] Sodium 100 2-23 mouth. College MG TABS 21:36: of 53 Medicin e senna-docus Yes 1{tbl} Take 1 [facility] ate 2-23 Tablet by [place] (SENOKOT S) 21:36: mouth of 8.6-50 MG 53 daily. Medicin per tablet e Simethicone Yes Take by [facility]urel darnell 80 MG TABS 2-23 mouth. [facility] 21:36: of 53 Medicin e Glucagon 1 Yes Inject [facility] MG/0.2ML 2-23 into the [facility] SOAJ 21:36: skin. of 53 Medicin e dextrose 50 Yes once. [facility] % injection 04-29 [facility] 21:36: of 53 Medicin e Glucose 15 Yes Take by [facility] g PACK 2-23 mouth. [facility] 21:36: of 53 Medicin e insulin Yes Inject [facility] aspart 2-23 into the [place] (NOVOLOG) 21:36: skin 3 of 100 UNIT/ML 53 times Medicin injection daily e (before meals). Dextran Yes Apply to [facility] 70-Hypromel 04-29 eye. [place] lose 21:36: of (ARTIFICIAL 53 Medicin TEARS) e 0.1-0.3 % SOLN piperacilli Yes 2.25g Inject [facility] n-tazobacta 2-23 2.25 g [facility] (ZOSYN) 21:36: into the of 2-0.25 53 vein every Medicin GM/50ML 6 hours. e IVPB atorvastati Yes 40mg Take 40 mg [facility] n (LIPITOR) 2-23 by mouth [facility] 40 MG 21:36: daily. of tablet 53 Medicin e ferrous Yes 325mg Take 325 [facility] sulfate 325 2-23 mg by [place] (65 Fe) MG 21:36: mouth of tablet 53 daily. Medicin e insulin Yes Inject [facility] glargine 2-23 into the [place] (LANTUS) 21:36: skin of 100 UNIT/ML 53 nightly. Medi [facility] injection e Epoetin Yes Inject as [facility] Fredy-epbx 2-23 directed. [facility] (RETACRIT) 21:36: of [...] 50mg Take 50 mg [facility] (DESYREL) -11 by mouth [facility] e 50 MG 00:00: daily. of tablet 00 Medicin e trazodone Yes 50mg Take 50 mg [facility] (DESYREL) 2-11 by mouth [facility] e 50 MG 00:00: daily. of tablet 00 Medicin e trazodone Yes 50mg Take 50 mg [facility] (DESYREL) 2-11 by mouth Colleg e 50 MG 00:00: daily. of tablet 00 Medicin e trazodone 2021- No 50mg Take 50 mg [facility] (DESYREL) 04-17 by mouth [facility] 50 MG 00:00: 00:00 daily. of tablet 00 :00 Medicin e trazodone 2021- No 50mg Take 50 mg [facility] (DESYREL) 04-17 by mouth [facility] 50 MG 00:00: 00:00 daily. of tablet 00 :00 Medicin e brimonidine Yes 1[drp] Q.5D [facility] (ALPHAGAN) 2-[address] 0.2 % 00:00[facility] 2 (two) l solution times a day. brimonidine Yes 1[drp] Q.5D [facility] (ALPHAGAN) 2-[address] 0.2 % 00:00: [facility] 00 2 (two) l solution times a day. SENNA CO Yes by [facility] 04-08 COMBINATIO [place] 22:05: N route. of Medicin e hydrALAZINE Yes 25mg Take 25 mg [facility] (APRESOLINE 04-08 by mouth 3 Co [facility]lege ) 25 MG 22:05: times of tablet daily. Medicin e Sevelamer Yes Take by [facility] r Carbonate 04-08 mouth. College 800 MG TABS 22:05: of Medicin e amlodipine Yes 10mg Take 10 mg [facility] (NORVASC) 02 by mouth [facility] e 10 MG 22:05: daily. of tablet Medicin e carvedilol Yes 12.5mg Take 12.5 [facility] (COREG) 2-02 mg by [place] 12.5 MG 22:05: mouth 2 of tablet 01 times Medicin daily e (with meals). gabapentin Yes 300mg Take 300 [facility] (NEURONTIN) 2-02 mg by [place] 300 MG 22:05: mouth 3 of capsule 01 times Medicin daily. e ASPIRIN 81 Yes Take by [facility] OR 2-02 mouth. [place] 22:05: of Medicin e Melatonin 3 Yes Take by Laurel darnell MG TABS 2-02 mouth. [place] 22:05: of Medicin e Acetaminoph Yes Take by [facility] darnell en 2- mouth two [place] (TYLENOL) 22:05: times of 325 MG CAPS daily. Medici n e Docusate Yes Take by [facility] Sodium 100 2- mouth. [place] MG TABS 22:05: of Medicin e senna-docus Yes 1{tbl} Take 1 [facility] ate 04-08 Tablet by [place] (SENOKOT S) 22:05: mouth of 8.6-50 MG 01 daily. Medicin per tablet e Simethicone Yes Take by [facility]urel darnell 80 MG TABS 2 mouth. [place] 22:05: of 01 Medicin e Glucagon 1 Yes Inject [facility] MG/0.2ML 04-08 into the [place] SOAJ 22:05: skin. of Medicin e dextrose 50 Yes once. [facility] % injection 04-08 [place] 22:05: of 01 Medicin e Glucose 15 Yes Take by [facility] g PACK 04-08 mouth. [place] 22:05: of 01 Medicin e insulin Yes Inject [facility] aspart 04-08 into the [place] (NOVOLOG) 22:05: skin 3 of 100 UNIT/ML 01 times Medicin injection daily e (before meals). Dextran Yes Apply to [facility] 70-Hypromel 04-08 eye. [place] lose 22:05: of (ARTIFICIAL 01 Medicin TEARS) e 0.1-0.3 % SOLN piperacilli Yes 2.25g Inject [facility] n-tazobacta 04-08 2.25 g [facility] (ZOSYN) 22:05: into the of 2-0.25 01 vein every Medicin GM/50ML 6 hours. e IVPB atorvastati Yes 40mg Take 40 mg [facility] n (LIPITOR) 2-02 by mouth [facility] 40 MG 22:05: daily. of tablet 01 Medicin e ferrous Yes 325mg Take 325 [facility] sulfate 325 2-02 mg by [place] (65 Fe) MG 22:05: mouth of tablet 01 daily. Medicin e insulin Yes Inject [facility] glargine 02 into the [place] (LANTUS) 22:05: skin of 100 UNIT/ML 01 nightly. Medi [facility] injection e Epoetin Yes Inject as [facility] Fredy-epbx 02 directed. [facility] (RETACRIT) 22:05: of 3000 01 Medicin UNIT/ML e SOLN Spironolact 2020- No Take by [facility] one 25 04-08-02 mouth. [place] MG/5ML SUSP 22:05: 00:00 of 01 :00 Medicin e furosemide 0 2020- No 40mg Take 40 mg [facility] (LASIX) 40 04-08 by mouth [facility] MG tablet 22:04: 00:00 daily. of 57 :00 Medicin e SENNA CO 0 Yes by Ton 1-05 [facility] 21:48: N route. of 54 Medicin e furosemide Yes 40mg Take 40 mg [facility] (LASIX) 40 -05 by mouth [facility]le [facility] MG tablet 21:48: daily. of 54 Medicin e hydrALAZINE Yes 25mg Take 25 mg [facility] (APRESOLINE 05 by mouth 3 [facility] ) 25 MG 21:48: times of tablet 54 daily. Medicin e Sevelamer Yes Take by [facility] r Carbonate 1-05 mouth. [place] 800 MG TABS 21:48: of 54 Medicin e amlodipine Yes 10mg Take 10 mg [facility] (NORVASC) 1-05 by mouth [facility] e 10 MG 21:48: daily. of tablet 54 Medicin e Spironolact Yes Take by [facility]urel darnell one 25 1-05 mouth. College MG/5ML SUSP 21:48: of 54 Medicin e carvedilol Yes 12.5mg Take 12.5 [facility] (COREG) 1-05 mg by [place] 12.5 MG 21:48: mouth 2 of tablet 54 times Medicin daily e (with meals). gabapentin Yes 300mg Take 300 [facility] (NEURONTIN) 1-05 mg by [place] 300 MG 21:48: mouth 3 of capsule 54 times Medicin daily. e ASPIRIN 81 Yes Take by [facility] OR 1-05 mouth. [facility] 21:48: of 54 Medicin e epoetin 2019-03 Yes [id number] Inject [address] [facility]y-epbx 1-16 mL (10,000 [facility] (RETACRIT) 00:00: Units Medica l 10,000 00 total) Center unit/mL subcutaneo Soln usly 3 injection (three) times a week at bedtime TUE/TUE/FR I. epoetin 2019-03 Yes [id number] Inject [address] [facility] [address] [facility]y-epbx 1-16 mL (10,000 [facility] (RETACRIT) 00:00: Units Medica l 10,000 00 total) Center unit/mL subcutaneo Soln usly 3 injection (three) times a week at bedtime TUE/TUE/FR I. epoetin 2019-03 Yes [id number] Inject [address] [facility] [address] [facility]-epbx 1-16 mL (10,000 [facility] (RETACRIT) 00:00: Units Medica l 10,000 00 total) Center unit/mL subcutaneo Soln usly 3 injection (three) times a week at bedtime TUE/TUE/FR I. epoetin 2019-03 Yes [id number] Inject [address] [facility] [address] [facility]-epbx 1-16 mL (10,000 [facility] (RETACRIT) 00:00: Units Medica l 10,000 00 total) Center unit/mL subcutaneo Soln usly 3 injection (three) times a week at bedtime MON/TUE/FR I. carvediloL 2019-03 12.5mg Q.5D Take 0.[address] [facility] (COREG) 25 1-15 11-15 tablets [facility] tablet 00:00: 23:59 (12.5 mg Med ical 00 :00 total) by Center mouth 2 (two) times daily. carvediloL 2019-03- No 12.5mg Q.5D Take 0.[address] [facility] (COREG) 25 1-15 11-15 tablets [facility] tablet 00:00: 23:59 (12.5 mg Med ical 00 :00 total) by Center mouth 2 (two) times daily. SENNA CO 2019-03 Yes by [facility] 0-27 [facility] 21:35: N route. of 11 Medicin e furosemide 2019-03 Yes 40mg Take 40 mg [facility] (LASIX) 40 0-27 by mouth [facility]le [facility] MG tablet 21:35: daily. of 11 Medicin e hydrALAZINE 2019-03 Yes 25mg Take 25 mg [facility] (APRESOLINE 0-27 by mouth 3 Co [facility] ) 25 MG 21:35: times of tablet 11 daily. Medicin e Sevelamer 2019-03 Yes Take by [facility] r Carbonate 0-27 mouth. [place] 800 MG TABS 21:35: of 11 Medicin e amlodipine 2019-03 Yes 10mg Take 10 mg [facility] (NORVASC) 0-27 by mouth [facility] 10 MG 21:35: daily. of tablet 11 Medicin e Spironolact 2019-03 Yes Take by [facility] darnell one 25 0-27 mouth. [place] MG/5ML SUSP 21:35: of 11 Medicin e carvedilol 2019-03 Yes 12.5mg Take 12.5 [facility] (COREG) 0-27 mg by [place] 12.5 MG 21:35: mouth 2 of tablet 11 times Medicin daily e (with meals). gabapentin 2019-03 Yes 300mg Take 300 [facility] (NEURONTIN) 0-27 mg by [place] 300 MG 21:35: mouth 3 of capsule 11 times Medicin daily. e ASPIRIN 81 2019-03 Yes Take by [facility] or OR 0-27 mouth. College 21:35: of 11 Medicin e SENNA CO 2019-03 Yes by [facility] 0-27 [facility] 21:35: N route. of 11 Medicin e furosemide 2019-03 Yes 40mg Take 40 mg [facility] (LASIX) 40 0-27 by mouth [facility]le [facility] MG tablet 21:35: daily. of 11 Medicin e hydrALAZINE 2019-03 Yes 25mg Take 25 mg [facility] (APRESOLINE 0-27 by mouth 3 [facility] ) 25 MG 21:35: times of tablet 11 daily. Medicin e Sevelamer 2019-03 Yes Take by [facility] Carbonate 0-27 mouth. [facility] 800 MG TABS 21:35: of 11 Medicin e amlodipine 2019- Yes 10mg Take 10 mg [facility] (NORVASC) 0-27 by mouth [facility] e 10 MG 21:35: daily. of tablet 11 Medicin e Spironolact 2019-03 Yes Take by [facility]urel darnell one 25 0-27 mouth. [place] MG/5ML SUSP 21:35: of 11 Medicin e carvedilol 2019-03 Yes 12.5mg Take 12.5 [facility] (COREG) 0-27 mg by [place] 12.5 MG 21:35: mouth 2 of tablet 11 times Medicin daily e (with meals). gabapentin 2019-03 Yes 300mg Take 300 [facility] (NEURONTIN) 0-27 mg by [place] 300 MG 21:35: mouth 3 of capsule 11 times Medicin daily. e ASPIRIN 81 2019-03 Yes Take by [facility] OR 0-27 mouth. [place] 21:35: of 11 Medicin e amoxicillin 2019-03 2020- No 1{tbl} Take 1 Tab [facility] -clavulanat 0-27 10-27 by mouth 3 C [facility] e 20:31: 00:00 times of (AUGMENTIN) 05 :00 daily. Medici n 500-125 MG e per tablet SENNA CO 2020-0 Yes by Ton 9-30 COMBINATIO [place] 19:13: N route. of 16 Medicin e [...] 2020-0 Yes Take by [facility] Carbonate 9-30 mouth. [facility] 800 MG TABS 19:13: of 16 Medicin e amlodipine 2020-0 Yes 10mg Take 10 mg [facility] (NORVASC) 9-30 by mouth Colleg e 10 MG 19:13: daily. of tablet 16 Medicin e amoxicillin 2020-0 Yes 1{tbl} Take 1 Tab [facility] -clavulanat 9-30 by mouth 3 Co [facility]lege e 19:13: times of (AUGMENTIN) 16 daily. Medici n 500-125 MG e per tablet Spironolact 2020-0 Yes Take by [facility] one 25 9-30 mouth. College MG/5ML SUSP 19:13: of 16 Medicin e carvedilol 2020-0 Yes 12.5mg Take 12.5 [facility] (COREG) 9-30 mg by [facility] 12.5 MG 19:13: mouth 2 of tablet 16 times Medicin daily e (with meals). gabapentin 2020-0 Yes 300mg Take 300 [facility] (NEURONTIN) 9-30 mg by [place] 300 MG 19:13: mouth 3 of capsule 16 times Medicin daily. e ASPIRIN 81 2020-0 Yes Take by [facility] [place] 9-30 mouth. [place] 19:13: of 16 Medicin e atorvastati 2020-0 Yes 40mg QD Take [address] [facility] (LIPITOR) 9-25 tablet (40 [facility] 40 MG 00:00: mg total) Medical tablet 00 by mouth Center daily. gabapentin 2020-0 Yes 300mg QD Take [address] [facility] (NEURONTIN) 9-25 capsule [facility] 300 MG 00:00: (300 mg Medical capsule 00 total) by Center mouth daily. atorvastati 2020-0 Yes 40mg QD Take [address] [facility] (LIPITOR) 9-25 tablet (40 [facility] 40 MG 00:00: mg total) Medical tablet 00 by mouth Center daily. gabapentin 2020-0 Yes 300mg QD Take [address] [facility] (NEURONTIN) 9-25 [facility] 00:00: (300 mg Medical capsule 00 total) by Center mouth daily. atorvastati 2020-0 Yes 40mg QD Take [address] [facility] (LIPITOR) 9-25 tablet (40 [facility] 40 MG 00:00: mg total) Medical tablet 00 by mouth Center daily. gabapentin 2020-0 Yes 300mg QD Take [address] [facility] (NEURONTIN) 9-25 capsule [facility] 300 MG 00:00: (300 mg Medical capsule 00 total) by Center mouth daily. atorvastati 2020-0 Yes 40mg QD Take [address] [facility] (LIPITOR) 9-25 tablet (40 Regi kes 40 MG 00:00: mg total) Medical tablet 00 by mouth Center daily. gabapentin 2020-0 Yes 300mg QD Take [address] [facility] (NEURONTIN) 9-25 capsule [facility] 300 MG 00:00: (300 mg Medical capsule 00 total) by Center mouth daily. SENNA CO 2020-0 Yes by [facility] 10-01 [facility] 19:33: N route. of 32 Medicin e furosemide 2020-0 Yes 40mg Take 40 mg [facility] (LASIX) 40 10-01 by mouth Colle ge MG tablet 19:33: daily. of 32 Medicin e hydrALAZINE 2020-0 Yes 25mg Take 25 mg [facility] (APRESOLINE - by mouth 3 Co llege ) 25 MG 19:33: times of tablet 32 daily. Medicin e Sevelamer 2020-0 Yes Take by [facility] r Carbonate 10-01 mouth. College 800 MG TABS 19:33: of 32 Medicin e amlodipine 2020-0 Yes 10mg Take 10 mg [facility] (NORVASC) 10-01 by mouth Colleg e 10 MG 19:33: daily. of tablet 32 Medicin e amoxicillin 2020-0 Yes 1{tbl} Take 1 Tab [facility] -clavulanat 10-01 by mouth 3 Co llege e 19:33: times of (AUGMENTIN) 32 daily. Medici n 500-125 MG e per tablet Spironolact 2020-0 Yes Take by [facility] one 25 10-01 mouth. College MG/5ML SUSP 19:33: of 32 Medicin e carvedilol 2020-0 Yes 12.5mg Take 12.5 [facility] (COREG) 7-28 mg by [place] 12.5 MG 19:33: mouth 2 of tablet 32 times Medicin daily e (with meals). gabapentin 2020-0 Yes 300mg Take 300 [facility] (NEURONTIN) 7-28 mg by [place] 300 MG 19:33: mouth 3 of capsule 32 times Medicin daily. e ASPIRIN 81 2020-0 Yes Take by [facility] - mouth. [facility] 19:33: of 32 Medicin e SENNA CO 2020-0 Yes by [facility] 6-30 [facility] 19:37: N route. of 20 Medicin [...] 2020-0 Yes Take by [facility] Carbonate 6-30 mouth. [place] 800 MG TABS 19:37: of 20 Medicin e amlodipine 2020-0 Yes 10mg Take 10 mg [facility] (NORVASC) 6-30 by mouth Colleg e 10 MG 19:37: daily. of tablet 20 Medicin e amoxicillin 2020-0 Yes 1{tbl} Take 1 Tab [facility] -clavulanat 6-30 by mouth 3 Co llege e 19:37: times of (AUGMENTIN) 20 daily. Medici n 500-125 MG e per tablet Spironolact 2020-0 Yes Take by [facility] one 25 6-30 mouth. [place] MG/5ML SUSP 19:37: of 20 Medicin e carvedilol 2020-0 Yes 12.5mg Take 12.5 [facility] (COREG) 6-30 mg by [place] 12.5 MG 19:37: mouth 2 of tablet 20 times Medicin daily e (with meals). gabapentin 2020-0 Yes 300mg Take 300 [facility] (NEURONTIN) 6-30 mg by [place] 300 MG 19:37: mouth 3 of capsule 20 times Medicin daily. e ASPIRIN 81 2020-0 Yes Take by [facility] OR 6-30 mouth. [place] 19:37: of 20 Medicin e SENNA CO 2020-0 Yes by [facility] 6-30 COMBINATIO [place] 19:37: N route. of 20 Medicin e furosemide 2020-0 Yes 40mg Take 40 mg [facility] (LASIX) 40 6-30 by mouth Colle ge MG tablet 19:37: daily. of 20 Medicin e hydrALAZINE 2020-0 Yes 25mg Take 25 mg [facility] (APRESOLINE 6-30 by mouth 3 Co llege ) 25 MG 19:37: times of tablet 20 daily. Medicin e Sevelamer 2020-0 Yes Take by [facility] Carbonate 6-30 mouth. [place] 800 MG TABS 19:37: of 20 Medicin [...] per tablet Spironolact 2020-0 Yes Take by [facility] one 25 6-30 mouth. [place] MG/5ML SUSP 19:37: of 20 Medicin e carvedilol 2020-0 Yes 12.5mg Take 12.5 [facility] (COREG) 6-30 mg by [place] 12.5 MG 19:37: mouth 2 of tablet 20 times Medicin daily e (with meals). gabapentin 2020-0 Yes 300mg Take 300 [facility] (NEURONTIN) 6-30 mg by [place] 300 MG 19:37: mouth 3 of capsule 20 times Medicin daily. e ASPIRIN 81 2019-0 Yes Take by [facility] [place] 6-30 mouth. [place] 19:37: of 20 Medicin e mupirocin 2020-0 Yes Apply 1-2 [facility] (BACTROBAN) 6-30 grams to [facility] 2 % 00:00: affected of ointment 00 area Medicin daily. e mupirocin 2020-0 Yes Apply 1-2 [facility] (BACTROBAN) 6-30 grams to [facility] e[facility] 2 % 00:00: affected of ointment 00 area Medicin daily. e mupirocin 2020-0 2020- No Apply 1-2 [facility] (BACTROBAN) 6-30 10-27 grams to Col lege 2 % 00:00: 00:00 affected of ointment 00 :00 area Medicin daily. e SENNA CO 2020-0 Yes by [facility] 6-16 COMBINATIO [place] 18:05: N route. of 34 Medicin e [...] 2020-0 Yes Take by [facility] Carbonate 6-16 mouth. [place] 800 MG TABS 18:05: of 34 Medicin e amlodipine 2020-0 Yes 10mg Take 10 mg [facility] (NORVASC) 6-16 by mouth Colleg e 10 MG 18:05: daily. of tablet 34 Medicin e amoxicillin 2020-0 Yes 1{tbl} Take 1 Tab [facility] -clavulanat 6-16 by mouth 3 Co llege e 18:05: times of (AUGMENTIN) 34 daily. Medici n 500-125 MG e per tablet Spironolact 2020-0 Yes Take by [facility] one 25 6-16 mouth. [place] MG/5ML SUSP 18:05: of 34 Medicin e carvedilol 2019-0 Yes 12.5mg Take 12.5 [facility] (COREG) 6-16 mg by [place] 12.5 MG 18:05: mouth 2 of tablet 34 times Medicin daily e (with meals). gabapentin 2019-0 Yes 300mg Take 300 [facility] (NEURONTIN) 6-16 mg by [place] 300 MG 18:05: mouth 3 of capsule 34 times Medicin daily. e ASPIRIN 81 2020-0 Yes Take by [facility] [place] 6-16 mouth. [place] 18:05: of 34 Medicin e mupirocin 2020-0 Yes Apply 1-2 [facility] (BACTROBAN) 6-04 grams to [facility]ia ege [...] daily. e SENNA CO 2020-0 Yes by [facility] 08-06 COMBINATIO [place] 18:33: N route. of 37 Medicin e furosemide 2020-0 Yes 40mg Take 40 mg [facility] (LASIX) 40 - by mouth Colle ge MG tablet 18:33: daily. of 37 Medicin e hydrALAZINE 2020-0 Yes 25mg Take 25 mg [facility] (APRESOLINE 6-02 by mouth 3 Co llege ) 25 MG 18:33: times of tablet 37 daily. Medicin e Sevelamer 2020-0 Yes Take by [facility] Carbonate 6-02 mouth. College 800 MG TABS 18:33: of 37 Medicin e amlodipine 2020-0 Yes 10mg Take 10 mg [facility] (NORVASC) 6-02 by mouth Colleg e 10 MG 18:33: daily. of tablet 37 Medicin e amoxicillin 2020-0 Yes 1{tbl} Take 1 Tab [facility] -clavulanat 6-02 by mouth 3 Co llege e 18:33: times of (AUGMENTIN) 37 daily. Medici n 500-125 MG e per tablet Spironolact 2020-0 Yes Take by [facility] one 25 6-02 mouth. College MG/5ML [facility] 18:33: of 37 Medicin e carvedilol 2020-0 Yes 12.5mg Take 12.5 [facility] (COREG) 6-02 mg by [place] 12.5 MG 18:33: mouth 2 of tablet 37 times Medicin daily e (with meals). gabapentin 2020-0 Yes 300mg Take 300 [facility] (NEURONTIN) 6-02 mg by [place] 300 MG 18:33: mouth 3 of capsule 37 times Medicin daily. e ASPIRIN 81 2020-0 Yes Take by [facility] [place] 6-02 mouth. [facility] 18:33: of 37 Medicin e SENNA CO 2020-0 Yes by [facility] Medicin e furosemide 2020-0 Yes 40mg Take 40 mg [facility] (LASIX) 40 5-19 by mouth Colle ge MG tablet 19:50: daily. of 17 Medicin e hydrALAZINE 2020-0 Yes 25mg Take 25 mg [facility] (APRESOLINE 5-19 by mouth 3 Co llege ) 25 MG 19:50: times of tablet 17 daily. Medicin e Sevelamer 2020-0 Yes Take by [facility] Carbonate 5-19 mouth. College 800 MG TABS [...] n 500-125 MG e per tablet Spironolact Yes Take by [facility] one 25 5-19 mouth. [place] MG/5ML [facility]USP 19:50: of 17 Medicin e carvedilol Yes 12.5mg Take 12.5 [facility] (COREG) 5-19 mg by [place] 12.5 MG 19:50: mouth 2 of tablet 17 times Medicin daily e (with meals). gabapentin Yes 300mg Take 300 [facility] (NEURONTIN) 5-19 mg by [place] 300 MG 19:50: mouth 3 of capsule 17 times Medicin daily. e ASPIRIN 81 Yes Take by [facility] OR 5-19 mouth. [place] 19:50: of 17 Medicin e Curity Curity No Curity 1/2"x10yd 1/2"x10yd 8-01 1/2"x10yd 00:00: 00 Curity Curity No Curity 1/2"x10yd 1/2"x10yd 8-01 1/2"x10yd 00:00: 00 No known No [facility] medications [facility] No known No [facility] medications [facility] Vital Signs Vital Name Observation [...] WEIGHT 2019-11-05 93 kg 00:00:00 Systolic blood 2021-12-08 170 mm[Hg] [facility] pressure 20:13:00 of Medicine Diastolic blood 2021-12-08 84 mm[Hg] [facility] ge pressure 20:13:00 of Medicine Heart rate 2021-12-08 67 /min [facility] 20:13:00 of Medicine Systolic blood 2021-12-08 169 mm[Hg] [facility] e pressure 16:40:00 of Medicine Diastolic blood 2021-12-08 83 mm[Hg] [facility] ge pressure 16:40:00 of Medicine Body height 2021-12-08 182.9 cm [facility] 16:40:00 of Medicine Systolic blood 2021-10-19 107 mm[Hg] [facility] of pressure 22:26:00 [facility] Diastolic blood 2021-10-19 53 mm[Hg] [facility] o f pressure 22:26:00 [facility] Heart rate 2021-10-19 61 /min [facility] 22:26:00 [facility] Respiratory rate 2021-10-19 14 /min [facility] 22:26:00 [facility] Oxygen saturation 2021-10-19 100 /min [facility] Arterial blood 22:26:00 [facility] by Pulse oximetry Branch Body temperature 2021-10-19 35.67 Rima [facility] 20:26:00 [facility] Body weight 2021-10-19 90 kg [facility] 20:26:00 [facility] Systolic blood 2021-09-08 117 mm[Hg] [facility] pressure 21:11:00 of Medicine Diastolic blood 2021-09-08 59 mm[Hg] [facility] Colle ge pressure 21:11:00 of Medicine Heart rate 2021-09-08 51 /min [facility] 21:11:00 of Medicine Body height 2021-09-08 185.4 cm [facility] 21:11:00 of Medicine Body weight 2021-09-08 86.183 kg [facility] 21:11:00 of Medicine BMI 2021-09-08 25.07 kg/m2 [facility] 21:11:00 of Medicine Systolic blood 2021-08-04 212 mm[Hg] [facility] pressure 22:05:00 of Medicine Diastolic blood 2021-08-04 84 mm[Hg] [facility] pressure 22:05:00 of Medicine Body height 2021-08-04 185.4 cm [facility] 22:05:00 of Medicine Body weight 2021-08-04 86.183 kg [facility] 22:05:00 of Medicine BMI 2021-08-04 25.07 kg/m2 [facility] 22:05:00 of Medicine Systolic blood 2021-08-04 212 mm[Hg] [facility] pressure 22:09:00 of Medicine Diastolic blood 2021-08-04 84 mm[Hg] [facility] pressure 22:09:00 of Medicine Heart [...] of Medicine Diastolic blood 2021-07-21 77 mm[Hg] [facility] Col[facility] ge pressure 15:40:00 of Medicine Heart [...] of Medicine Diastolic blood 2021-05-26 75 mm[Hg] [facility] pressure 21:05:00 of [...] of Medicine Systolic blood 2021-05-05 148 mm[Hg] [facility] pressure 21:53:00 of [...] blood 2021-04-07 79 mm[Hg] did not take [facility] pressure 21:27:00 b/p meds today [...] kg 22:02:00 Systolic blood 2021-02-03 121 mm[Hg] [facility] pressure 19:23:00 of Medicine Diastolic blood 2021-02-03 69 mm[Hg] [facility] ge pressure 19:23:00 of Medicine Heart rate 2021-02-03 91 /min [facility] 19:23:00 of Medicine Body height 2021-02-03 185.4 cm [facility] 19:23:00 of Medicine Body weight 2021-02-03 86.637 kg [facility] 19:23:00 of Medicine BMI 2021-02-03 25.20 kg/m2 [facility] 19:23:00 of Medicine Systolic blood 2021-01-20 165 mm[Hg] [facility] pressure 17:05:00 of Medicine Diastolic blood 2021-01-20 92 mm[Hg] [facility] pressure 17:05:00 of Medicine Heart [...] of Medicine Diastolic blood 2020-12-23 92 mm[Hg] [facility] Col[facility] pressure 20:28:00 of Medicine Heart [...] of Medicine Diastolic blood 2020-11-25 73 mm[Hg] [facility] Col[facility] pressure 19:32:00 of Medicine Heart rate 2020-11-25 61 /min [facility] 19:32:00 of Medicine Respiratory rate 2020-11-25 14 /min [facility] 19:32:00 of Medicine Body height 2020-11-25 185.4 cm [facility] 19:32:00 of Medicine Body weight 2020-11-25 87 kg [facility] 19:32:00 of Medicine BMI 2020-11-25 25.30 kg/m2 [facility] 19:32:00 of Medicine Systolic blood 2020-10-28 154 mm[Hg] [facility] pressure 21:32:00 of Medicine Diastolic blood 2020-10-28 77 mm[Hg] [facility] Colle ge pressure 21:32:00 of Medicine Heart rate 2020-10-28 61 /min [facility] 21:32:00 of Medicine Body height 2020-10-28 182.9 cm [facility] 21:32:00 of Medicine Body weight 2020-10-28 86.637 kg [facility] 21:32:00 of Medicine BMI 2020-10-28 25.90 kg/m2 [facility] 21:32:00 of Medicine Systolic blood 2020-10-14 151 mm[facility]Hg[facility] Diastolic blood 2020-10-14 77 mm[Hg] [facility] ge pressure 21:20:00 of Medicine Heart [...] of Medicine Diastolic blood 2020-08-19 71 mm[Hg] [facility] Colle ge pressure 20:25:00 of Medicine Heart rate 2020-08-19 62 /min [facility] 20:25:00 of Medicine Body height 2020-08-19 182.9 cm [facility] 20:25:00 of Medicine Body weight 2020-08-19 84.823 kg [facility] 20:25:00 of Medicine BMI 2020-08-19 25.36 kg/m2 [facility] 20:25:00 of Medicine Systolic blood 2020-08-05 184 mm[Hg] [facility] pressure 18:22:00 of Medicine [...] of Medicine Diastolic blood 2020-07-22 97 mm[Hg] [facility] Col[facility] ge pressure 18:25:00 of Medicine Heart rate 2020-07-22 61 /min [facility] 18:25:00 of Medicine Body height 2020-07-22 182.9 cm [facility] 18:25:00 of Medicine Body weight 2020-07-22 84.823 kg [facility] 18:25:00 of Medicine BMI 2020-07-22 25.36 kg/m2 [facility] 18:25:00 of Medicine height 2020-07-03 73.0 [in_i] [facility] - 09:20:00 [facility] weight 2020-07-03 247.3 [lb_av] [facility] - 09:20:00 [facility] temperature 2020-07-03 98.4 [degF] [facility] - 09:20:00 [facility] bmi 2020-07-03 32.62 kg/m2 [facility] - 09:20:00 [facility] oximetry 2020-07-03 97 % [facility] - 09:20:00 [facility] blood pressure 2020-07-03 213 mm[Hg] [facility] - systolic 09:20:00 [facility] blood pressure 2020-07-03 93 mm[Hg] [facility] - diastolic 09:20:00 [facility] height 2020-06-26 73.0 [in_i] [facility] - 14:40:00 [facility] weight 2020-06-26 247.3 [lb_av] [facility] - 14:40:00 [facility] temperature 2020-06-26 97.8 [degF] [facility] - 14:40:00 [facility] bmi 2020-06-26 32.62 kg/m2 [facility] - 14:40:00 [facility] oximetry 2020-06-26 97 % [facility] - 14:40:00 [facility] blood pressure 2020-06-26 107 mm[Hg] [facility] - systolic 14:40:00 [facility] blood pressure 2020-06-26 59 mm[Hg] [facility] - diastolic 14:40:00 [facility] Systolic blood 2020-06-24 103 mm[Hg] [facility] pressure 20:43:00 of Medicine Diastolic blood 2020-06-24 64 mm[Hg] [facility] pressure 20:43:00 of [...] of Medicine Diastolic blood 2020-05-20 81 mm[Hg] [facility] pressure 21:14:00 of [...] of Medicine Systolic blood 2020-05-20 144 mm[Hg] [facility] pressure 21:14:00 of [...] of Medicine Diastolic blood 2020-05-13 65 mm[Hg] [facility] pressure 22:27:00 of Medicine [...] of Medicine Diastolic blood 2020-05-13 65 mm[Hg] [facility] pressure 22:27:00 of Medicine Heart rate 2020-05-13 58 /min [facility] 22:27:00 of Medicine Body height 2020-05-13 182.9 cm [facility] 22:27:00 of Medicine Body weight 2020-05-13 96.616 kg [facility] 22:27:00 of Medicine BMI 2020-05-13 28.89 kg/m2 [facility] 22:27:00 of Medicine Systolic blood 2020-04-29 170 mm[Hg] [facility] pressure 21:36:00 of Medicine Diastolic [...] of Medicine Systolic blood 2020-04-29 170 mm[Hg] [facility] pressure 21:36:00 of Medicine [...] of Medicine Systolic blood 2020-04-08 163 mm[Hg] [facility] pressure 21:53:00 of Medicine Diastolic blood 2020-04-08 76 mm[Hg] [facility] pressure 21:53:00 of Medicine Heart rate 2020-04-08 65 /min [facility] 21:53:00 of Medicine Body height 2020-04-08 182.9 cm [facility] 21:53:00 of Medicine Body weight 2020-04-08 96.616 kg unable to stand [facility] 21:53:00 of Medicine BMI 2020-04-08 28.89 kg/m2 [facility] 21:53:00 of Medicine Systolic blood 2020-04-08 163 mm[Hg] [facility] pressure 21:53:00 of Medicine Diastolic blood 2020-04-08 76 mm[Hg] [facility] pressure 21:53:00 of [...] of Medicine Diastolic blood 2020-03-11 86 mm[Hg] [facility] pressure 21:44:00 of Medicine Heart rate 2020-03-11 74 /min [facility] 21:44:00 of Medicine Body height 2020-03-11 182.9 cm [facility] 21:44:00 of Medicine Body weight 2020-03-11 96.616 kg unable to stand [facility] 21:44:00 of Medicine BMI 2020-03-11 28.89 kg/m2 [facility] 21:44:00 of Medicine Systolic blood 2020-03-11 144 mm[Hg] [facility] pressure 21:44:00 of Medicine Diastolic blood 2020-03-11 86 mm[Hg] [facility] pressure 21:44:00 of Medicine Heart rate 2020-03-11 74 /min [facility] 21:44:00 of Medicine Body height 2020-03-11 182.9 cm [facility] 21:44:00 of Medicine Body weight 2020-03-11 96.616 kg unable to stand [facility] ge 21:44:00 of Medicine BMI 2020-03-11 28.89 [...] kg 16:05:00 Systolic blood 2020-01-01 154 mm[Hg] [facility] pressure 21:34:00 of Medicine Diastolic blood 2020-01-01 79 mm[Hg] [facility] pressure 21:34:00 of Medicine Heart rate 2020-01-01 67 /min [facility] 21:34:00 of Medicine Body weight 2020-01-01 96.616 kg [facility] 21:34:00 of Medicine BMI 2020-01-01 32.39 kg/m2 [facility] 21:34:00 of Medicine Systolic blood 2020-01-01 154 mm[Hg] [facility] pressure 21:34:00 of Medicine Diastolic blood 2020-01-01 79 mm[Hg] [facility] ge pressure 21:34:00 of Medicine Heart rate 2020-01-01 67 /min [facility] 21:34:00 of Medicine Body weight 2020-01-01 96.616 kg [facility] 21:34:00 of Medicine BMI 2020-01-01 32.39 kg/m2 [facility] 21:34:00 of Medicine Systolic blood 2020-01-01 154 mm[Hg] [facility] pressure 20:24:00 of [...] of Medicine Systolic blood 2020-01-01 154 mm[Hg] [facility] pressure 20:24:00 of [...] of Medicine Diastolic blood 2019-12-05 77 mm[Hg] [facility] pressure 19:12:00 of [...] of Medicine Systolic blood 2019-12-05 127 mm[Hg] [facility] pressure 19:12:00 of Medicine Diastolic blood 2019-12-05 77 mm[Hg] [facility] pressure 19:12:00 of [...] of Medicine Diastolic blood 2019-10-02 110 mm[Hg] [facility] pressure 19:32:00 of [...] of Medicine Systolic blood 2019-10-02 202 mm[Hg] [facility] pressure 19:32:00 of Medicine Diastolic blood 2019-10-02 110 mm[Hg] [facility] pressure 19:32:00 of [...] of Medicine Diastolic blood 2019-09-04 91 mm[Hg] [facility] pressure 19:36:00 of [...] of Medicine Diastolic blood 2019-09-04 91 mm[Hg] [facility] pressure 19:29:00 of [...] of Medicine Systolic blood 2019-09-04 165 mm[Hg] [facility] pressure 19:29:00 of [...] of Medicine Diastolic blood 2019-08-21 77 mm[Hg] [facility] pressure 18:04:00 of [...] of Medicine Systolic blood 2019-08-07 148 mm[Hg] [facility] pressure 18:34:00 of Medicine Diastolic blood 2019-08-07 77 mm[Hg] [facility] pressure 18:34:00 of Medicine [...] of Medicine Systolic blood 2019-07-24 146 mm[Hg] [facility] pressure 18:50:00 of Medicine Diastolic blood 2019-07-24 80 mm[Hg] [facility] pressure 18:50:00 of [...] of Medicine Systolic blood 2019-07-24 146 mm[Hg] [facility] pressure 18:50:00 of Medicine Diastolic blood 2019-07-24 80 mm[Hg] [facility] pressure 18:50:00 of [...] of Medicine Systolic blood 2019-07-17 130 mm[Hg] [facility] pressure 16:32:00 of Medicine Diastolic blood 2019-07-17 51 mm[Hg] [facility] pressure 16:32:00 of [...] of Medicine Diastolic blood 2019-07-17 51 mm[Hg] [facility] pressure 16:32:00 of [...] of Medicine Diastolic blood 2019-07-10 72 mm[Hg] [facility] Col[facility] pressure 20:16:00 of Medicine Heart rate 2019-07-10 86 /min [facility] 20:16:00 of Medicine Body height 2019-07-10 172.7 cm [facility] 20:16:00 of Medicine Body weight 2019-07-10 104.327 kg [facility] 20:16:00 of Medicine BMI 2019-07-10 34.97 kg/m2 [facility] 20:16:00 of Medicine Systolic blood 2021-07-04 119 mm[Hg] [facility] pressure 23:22:32 Hospital Diastolic blood 2021-07-04 64 mm[Hg] [facility] pressure 23:22:32 Hospital Heart rate 2021-07-04 90 /min [facility] 23:22:32 Hospital Body temperature 2021-07-04 36.94 Rima [facility] 23:22:32 Hospital Respiratory rate 2021-07-04 17 /min [facility] 23:22:32 Hospital Oxygen saturation 2021-07-04 97 /min [facility] in Arterial blood 23:22:32 Hospital by Pulse oximetry Body weight 2021-07-04 96.616 kg [facility] 10:37:17 Hospital BMI 2021-07-04 28.10 kg/m2 [facility] 10:37:17 Hospital Body height 2021-07-03 185.4 cm [facility] 14:18:00 Hospital Systolic blood 2021-03-16 135 mm[Hg] [facility] pressure 15:00:[address] [facility] Diastolic blood 2021-03-16 71 mm[Hg] [facility] pressure 15:00:[address] [facility] Heart rate 2021-03-16 98 /min [facility] 15:00:[address] [facility] Body temperature 2021-03-[address] [facility] [facility] Respiratory rate 2021-03-16 15 /min [facility] [facility] Oxygen saturation 2021-03-16 100 /min [facility] in Arterial blood 15:00:00 Medical nter by Pulse oximetry Body weight 2021-03-[address] [facility] 08:09:[address] [facility] BMI 2021-03-16 22.69 kg/m2 [facility] 08:09:[address] [facility] Body height 2021-02-[address] [facility] 22:02:[address] [facility] Procedures Procedure Date / Time Performing Source Performed Clinician [place] DEBRIDEMENT OPEN 2021-12-17 08:29:46 [facility] ol[facility] of WOUND 20 SQ CM< Medicine WOUND CARE INSTRUCTIONS 2021-12-08 15:49:27 [facility] COVID-19 (ID NOW RAPID 2021-10-19 22:26:00 Lyle Canales [facility] TESTING) Medical Branch COMP. METABOLIC PANEL 2021-10-19 21:34:00 Oralia Martines [facility] ([id number]) [facility] XR CHEST 1 VW 2021-10-19 20:57:35 Oralia Martines [facility] HB ECG ROUTINE & RHYTHM 2021-10-19 20:36:21 Oralia Martines [facility] TROPONIN I 2021-10-19 20:32:00 Oralia Martines [facility] CBC WITH DIFF 2021-10-19 20:32:00 Oralia Martines [facility] [place] DEBRIDEMENT, SKIN, 2021-09-13 10:19:48 [facility] TISSUE,=<20 SQ CM Medicine WOUND CARE INSTRUCTIONS 2021-08-04 17:21:14 [facility] POC GLUCOSE 2021-07-04 23:21:00 [facility] 2021-07-04 18:48:12 Moon Kelly [facility] POC GLUCOSE 2021-07-04 15:39:00 [facility] POC GLU[facility]SE 2021-07-04 12:31:00 [facility] COMPREHENSIVE METABOLIC 2021-07-04 11:00:00 Joao [facility] PANEL HC COMPLETE BLD COUNT 2021-07-04 11:00:00 [facility] DIFF MAGNESIUM LEVEL 2021-07-04 11:00:00 [facility] ESTIM[facility] GFR 2021-07-04 11:00:00 [facility] POC GLUCOSE 2021-07-04 01:11:00 [facility] TRANSFUSE RED BLOOD 2021-07-03 22:45:00 [facility] CELL[facility] Michele Adán HEMODIALYSIS 2021-07-03 22:15:03 Fred Mahoney [facility] spital [place] TRANSFUSE RED BLOOD 2021-07-03 22:00:00 Pon[facility] CELLS [facility] HEPATITIS B SURFACE 2021-07-03 21:19:00 [facility] ANTIGEN [place] HEPATITIS B SURFACE AB, 2021-07-03 21:19:00 [facility] QUANTITATIVE [place] HEPATITIS B SURFACE 2021-07-03 21:19:00 Maru [facility] ANTIBODY [place] POC GLUCOSE 2021-07-03 15:54:00 Joao [facility] IR TUNNELED DIALYSIS 2021-07-03 15:23:34 Lakisha Pimentel [facility] CATHETER PLACEMENT US GUIDED VASCULAR 2021-07-03 15:23:34 [facility] POC GLUCOSE 2021-07-03 12:23:00 [place] [id number] ANTI-SPIKE IGG 2021-07-03 10:48:00 Jeyson [facility] ANTIBODY TITER Rose [facility] METABOLIC 2021-07-03 10:48:00 Tao Shepherd [facility] PANEL HC COMPLETE BLD COUNT 2021-07-03 10:48:00 Joao [facility] W/AUTO DIFF MAGNESIUM LEVEL 2021-07-03 10:48:00 Joao [facility] COVID-19 SEROLOGY 2021-07-03 10:48:00 [facility] Rose ESTIMATED GFR 2021-07-03 10:48:00 Joao [facility] POC GLUCOSE 2021-07-03 00:46:00 Joao [facility] POC GLUCOSE 2021-07-02 20:46:00 Joao [facility] POC GLUCOSE 2021-07-02 12:50:00 Joao [facility] POC GLUCOSE 2021-07-02 11:46:00 Joao [facility] XR CHEST 1 VW PORTABLE 2021-07-02 11:37:23 Joao [facility] TYPE AND SCREEN 2021-07-02 10:38:00 Power Herman PREPARE RBC 2021-07-02 10:38:00 Power Herman HC COMPLETE BLD COUNT 2021-07-02 09:39:00 AmilcarBeka ward [facility] W/AUTO DIFF COMPREHENSIVE METABOLIC 2021-07-02 09:39:00 Amilcarkent hospitalBeka [facility] PANEL MAGNESIUM LEVEL 2021-07-02 09:39:00 [facility] ESTIMATED GFR 2021-07-02 09:39:00 Beka Qureshi spital TROPONIN T 2021-07-02 03:40:00 [facility] POC GLUCOSE 2021-07-02 01:47:00 Joao, [facility] COVID-19 QUALITATIVE 2021-07-02 00:42:00 [facility] RT-PCR TROPONIN T 2021-07-02 00:42:00 [facility] [place] CRITICAL CARE, E/M 2021-07-01 21:46:21 [facility] 30-74 MINUTES ECG ED PRELIMINARY 2021-07-01 21:46:21 [facility] INTERPRETATION XR CHEST 1 VW PORTABLE 2021-07-01 21:36:02 [facility] HC COMPLETE BLD COUNT 2021-07-01 21:25:00 [facility] W/AUTO DIFF PROTHROMBIN TIME WITH 2021-07-01 21:25:00 [facility] INR PARTIAL THROMBOPLASTIN 2021-07-01 21:25:00 [facility] TIME (PTT) COMPREHENSIVE METABOLIC 2021-07-01 21:25:00 [facility] PANEL CREATINE KINASE, TOTAL 2021-07-01 21:25:00 [facility] (CPK) TROPONIN T 2021-07-01 21:25:00 Beka Qureshi spital B NATRIURETIC PEPTIDE 2021-07-01 21:25:00 [facility] ESTIMATED GFR 2021-07-01 21:25:00 Beka Qureshi spital ECG 12-LEAD 2021-07-01 20:19:25 Beka Qureshi spital POCT-GLUCOSE METER 2021-03-16 12:40:00 Dav Guzman [facility] HEMODIALYSIS INPATIENT 2021-03-16 08:18:39 Matt Parr [facility] POCT-GLUCOSE METER 2021-03-16 07:43:00 [facility] VANCOMYCIN LEVEL, RANDOM 2021-03-16 04:45:00 Trudy Karimi [facility] BASIC METABOLIC PANEL 2021-03-16 04:45:00 [facility] POCT-GLUCOSE METER 2021-03-15 21:21:00 [facility] POCT-GLUCOSE METER 2021-03-15 16:50:00 [facility] POCT-GLUCOSE METER 2021-03-15 11:48:00 [facility] BASIC METABOLIC PANEL 2021-03-15 09:55:00 Ven[facility] POCT-GLUCOSE METER 2021-03-15 07:14:00 [facility], [facility] POCT-GLUCOSE METER 2021-03-14 21:02:00 [facility] POCT-GLUCOSE METER 2021-03-14 15:31:00 [facility] BASIC METABOLIC PANEL 2021-03-14 12:22:00 [facility] POCT-GLUCOSE METER 2021-03-14 11:46:00 [facility] POCT-GLUCOSE METER 2021-03-14 07:34:00 [facility] POCT-GLUCOSE METER 2021-03-13 23:20:00 [facility] POCT-GLUCOSE METER 2021-03-13 15:33:00 [facility] POCT-GLUCOSE METER 2021-03-13 12:39:00 [facility] HEMODIALYSIS INPATIENT 2021-03-13 11:59:00 Matt Parr [facility] POCT-GLUCOSE METER 2021-03-12 23:51:00 [facility] POCT-GLUCOSE METER 2021-03-12 15:25:00 [facility] IRRIGATION AND 2021-03-12 10:05:00 Star Cloud [facility] DEBRIDEMENT, WOUND, Center LOWER EXTREMITY APPLICATION, GRAFT, 2021-03-12 10:05:00 Clark Castañeda [facility] SKIN, SPLIT-THICKNESS, Center TO LOWER EXTREMITY POCT-GLUCOSE METER 2021-03-12 09:21:00 [facility] CBC W/PLT COUNT & AUTO 2021-03-12 04:13:00 Macrina [facility] BASIC METABOLIC PANEL 2021-03-12 04:13:00 [facility] PH[facility]US 2021-03-12 04:13:00 [facility] CBC W/PLT COUNT & AUTO 2021-03-12 04:13:00 Macrina [facility] Center POCT-GLUCOSE METER 2021-03-11 21:09:00 [facility] POCT-GLUCOSE METER 2021-03-11 16:30:00 [facility] TYPE AND SCREEN, 2021-03-11 13:56:00 [facility] Center HEMODIALYSIS INPATIENT 2021-03-11 13:14:54 [facility] POCT-GLUCOSE METER 2021-03-11 11:48:00 [facility] POCT-GLUCOSE METER 2021-03-11 07:11:00 [facility] SARS-COV2/RT-PCR ([facility] & 2021-03-11 04:50:00 [facility] REF LABS) Center CBC W/PLT COUNT & AUTO 2021-03-11 04:45:00 Macrina [facility] Center CBC W/PLT COUNT & AUTO 2021-03-11 04:45:00 Macrina [facility] Center POCT-GLUCOSE METER 2021-03-10 20:47:00 Macrina [facility] POCT-GLUCOSE METER 2021-03-10 15:35:00 Macrina [facility] BASIC METABOLIC PANEL 2021-03-10 04:57:00 Macrina [facility] CBC W/PLT COUNT & AUTO 2021-03-10 04:57:00 Macrina [facility] CBC W/PLT COUNT & AUTO 2021-03-10 04:57:00 Macrina [facility] POCT-GLUCOSE METER 2021-03-09 22:57:00 Macrina [facility] POCT-GLUCOSE METER 2021-03-09 17:49:00 Macrina [facility] HEMODIALYSIS INPATIENT 2021-03-09 14:11:03 Keyona [facility] POCT-GLUCOSE METER 2021-03-09 11:09:00 Macrina [facility] POCT-GLUCOSE METER 2021-03-09 07:04:00 Macrina [facility] BASIC METABOLIC PANEL 2021-03-09 05:25:00 Macrina [facility] POCT-GLUCOSE METER 2021-03-08 20:49:00 Macrina [facility] POCT-GLUCOSE METER 2021-03-08 15:24:00 Macrina [facility] POCT-GLUCOSE METER 2021-03-08 11:14:00 Macrina [facility] POCT-GLUCOSE METER 2021-03-08 07:17:00 Macrina [facility] BASIC METABOLIC PANEL 2021-03-08 04:39:00 Macrina [facility] VANCOMYCIN LEVEL, RANDOM 2021-03-08 04:39:00 Leona Khan [facility] PHOSPHORUS 2021-03-08 04:39:00 Julio Hurst [facility] POCT-GLUCOSE METER 2021-03-07 21:11:00 Macrina [facility] POCT-GLUCOSE METER 2021-03-07 16:03:00 Macrina [facility] POCT-GLUCOSE METER 2021-03-07 11:56:00 Macrina [facility] POCT-GLUCOSE METER 2021-03-07 08:30:00 Macrina [facility] CBC W/PLT COUNT & AUTO 2021-03-07 06:02:00 [facility] W/[facility]T COUNT & AUTO 2021-03-07 06:02:00 [facility] VANCOMYCIN LEVEL, TROUGH 2021-03-07 03:27:00 [place]ires [facility] POCT-GLUCOSE METER 2021-03-06 20:48:00 [facility] 2021-03-06 17:10:59 Matt Parr [facility] POCT-GLUCOSE METER 2021-03-06 16:02:00 [facility] POCT-GLUCOSE METER 2021-03-06 12:10:00 [facility] POCT-GLUCOSE METER 2021-03-06 08:18:00 Macrina [facility] BASIC METABOLIC PANEL 2021-03-06 06:06:00 Macrina [facility] CBC W/PLT COUNT & AUTO 2021-03-06 06:06:00 [facility] CBC W/PLT COUNT & AUTO 2021-03-06 06:06:00 [facility] POCT-GLUCOSE METER 2021-03-05 21:07:00 [facility] POCT-GLUCOSE METER 2021-03-05 16:12:00 [facility] ANGIOPLASTY, ARTERY, 2021-03-05 11:10:00 Castañeda Clark Chahal [facility] LOWER EXTREMITY [place] BASIC METABOLIC PANEL 2021-03-05 03:58:00 [facility] CBC W/PLT COUNT & AUTO 2021-03-05 03:58:00 Macrina [facility] VANCOMYCIN LEVEL, RANDOM 2021-03-05 03:58:00 Leona hKan [facility] CBC W/PLT COUNT & AUTO 2021-03-05 03:58:00 Macrina [facility] POCT-GLUCOSE METER 2021-03-05 03:54:00 Macrina [facility] SARS-COV2/RT-PCR ([facility] & 2021-03-05 00:10:[address] [facility] REF LABS) Center XR FOOT 2 VIEWS RIGHT 2021-03-04 23:03:00 Star Cloud [facility] HEMODIALYSIS INPATIENT 2021-03-04 18:59:01 Julio Hurst [facility] BASIC METABOLIC PANEL 2021-03-04 12:45:00 Macrina [facility] VANCOMYCIN LEVEL, RANDOM 2021-03-04 12:45:00 Joyce Wray [facility] POCT-GLUCOSE METER 2021-03-04 11:23:00 Macrina [facility] POCT-GLUCOSE METER 2021-03-04 09:07:00 Macrina [facility] POCT-GLUCOSE METER 2021-03-03 16:32:00 Macrina [facility] POCT-GLUCOSE METER 2021-03-03 11:24:00 Macrina [facility] POCT-GLUCOSE METER 2021-03-03 07:00:00 Bal Schrader [facility] BASIC METABOLIC PANEL 2021-03-03 06:44:00 Star Cloud [facility] TYPE AND SCREEN, 2021-03-03 06:44:00 [place] Samayoa [facility] AUTOMATED Center CBC W/PLT COUNT & AUTO 2021-03-03 04:00:00 Star Cloud [facility] DIFFERENTIAL [place] CBC W/PLT COUNT & AUTO 2021-03-03 04:00:00 [facility] POCT-GLUCOSE METER 2021-03-02 23:46:00 Macrina [facility] PHOSPHORUS 2021-03-02 17:20:00 Pedro Luis [facility] FERRITIN 2021-03-02 17:20:00 [place] [facility] IRON, TIBC, % SAT. 2021-03-02 17:20:00 Star Cloud [facility] (WITHOUT FERRITIN) [place] POCT-GLUCOSE METER 2021-03-02 15:58:00 Macrina [facility] SURGICALLY OBTAINED 2021-03-02 15:18:07 Star Cloud Lizeth [facility] CULTURE + GRAM STAIN Center ANAEROBIC CULTURE 2021-03-02 15:18:07 Star Cloud [facility] AF[facility] CULTURE + SMEAR 2021-03-02 15:18:07 Star Cloud [facility] (NON-SPUTUM) [place] FUNGUS CULTURE + SMEAR 2021-03-02 15:18:07 Star Cloud [facility] TISSUE EXAM 2021-03-02 15:11:00 [facility] SURGICALLY OBTAINED 2021-03-02 15:07:15 Star Cloud [facility] CULTURE + GRAM STAIN Center ANAEROBIC CULTURE 2021-03-02 15:07:15 Pedro Luis Star [facility] CULTURE + SMEAR 2021-03-02 15:07:15 Star Cloud [facility] (NON-SPUTUM) [place] FUNGUS CULTURE + SMEAR 2021-03-02 15:07:15 Star Cloud [facility] SPIN/CONCENTRATION 2021-03-02 15:07:00 Star Cloud [facility] Center IRRIGATION AND 2021-03-02 14:12:00 Star Cloud [facility], WOUND, Center LOWER EXTREMITY POCT-GLUCOSE METER 2021-03-02 11:14:00 [facility]PATIENT 2021-03-02 09:21:31 [facility] CBC W/PLT COUNT & AUTO 2021-03-02 04:31:00 [facility] BASIC METABOLIC PANEL 2021-03-02 04:31:00 Star Cloud [facility] CBC W/PLT COUNT & AUTO 2021-03-02 04:31:00 [facility] POCT-GLUCOSE METER 2021-03-01 21:38:00 [facility] XR CHEST 1 VIEW PORTABLE 2021-03-01 18:04:00 Zenia Davies [facility] / BEDSIDE Center POCT-GLUCOSE METER 2021-03-01 16:47:00 [facility] POCT-GLUCOSE METER 2021-03-01 11:39:00 [facility] HEMODIALYSIS INPATIENT 2021-03-01 10:38:37 [facility] POCT-GLUCOSE METER 2021-03-01 07:49:00 [facility] BASIC METABOLIC PANEL 2021-03-01 06:36:00 [facility] CBC W/PLT COUNT & AUTO 2021-03-01 03:20:00 [facility] BASIC METABOLIC PANEL 2021-03-01 03:20:00 Star [facility] CBC W/PLT COUNT & AUTO 2021-03-01 03:20:00 [facility] POCT-GLUCOSE METER 2021-02-28 21:10:00 [facility] POCT-GLUCOSE METER 2021-02-28 15:42:00 [facility] POCT-GLUCOSE METER 2021-02-28 11:54:00 Macrina [facility] HC ARTERIAL DOPPLER LEG 2021-02-28 09:06:00 Keke [facility] XR FOOT 2 VIEWS RIGHT 2021-02-28 07:32:00 [facility] POCT-GLUCOSE METER 2021-02-28 07:30:00 [facility] POCT-GLUCOSE METER 2021-02-27 23:15:00 [facility] HEMODIALYSIS INPATIENT 2021-02-27 23:11:11 Thierno Rizo [facility] Center VANCOMYCIN LEVEL, RANDOM 2021-02-27 22:07:00 Adam Rowley [facility] HEPATITIS B SURFACE 2021-02-27 19:56:00 Matt Parr [facility] Center SARS-COV2/RT-PCR ([facility] & 2021-02-27 13:48:00 Star Cloud [facility] REF LABS) Center POCT-GLUCOSE METER 2021-02-27 11:24:00 [facility] POCT-GLUCOSE METER 2021-02-27 07:45:00 [facility] CBC W/PLT COUNT & AUTO 2021-02-26 23:03:00 [facility] CBC W/PLT COUNT & AUTO 2021-02-26 23:03:00 [facility] BLOOD CULTURE 2021-02-26 23:02:00 [facility] PROT[facility] TIME/INR 2021-02-26 23:02:00 [facility] APTT 2021-02-26 23:02:00 [facility] COMPREHENSIVE METABOLIC 2021-02-26 23:02:00 [facility] MAGNESIUM 2021-02-26 23:02:00 [facility] PHOSPHORUS 2021-02-26 23:02:00 [facility] C-REACTIVE PROTEIN 2021-02-26 23:02:00 [facility] LACTIC ACID, VENOUS 2021-02-26 23:02:00 [facility] CARDIAC CATH REPORT - 2021-02-26 00:00:00 Provider [facility] SCAN Scanning Center [id number] 2020-04-12 00:00:00 [facility] [id number] 2020-04-12 00:00:00 [facility] [id number] 2020-04-12 00:00:00 [facility] [place] [id number] 2020-04-12 00:00:00 [facility] [id number] 2020-04-12 00:00:00 [facility] [id number] 2020-04-12 00:00:00 [facility] [id number] 2020-04-12 00:00:00 [facility] [id number] 2020-04-12 00:00:00 [facility] [id number] 2020-04-12 00:00:00 [facility] [id number] 2020-04-12 00:00:00 [facility] [place] [id number] 2020-03-28 00:00:00 [facility] [id number] 2020-03-28 00:00:00 [facility] [id number] 2020-03-28 00:00:00 [facility] [id number] 2020-03-28 00:00:00 [facility] [id number] 2020-03-28 00:00:00 [facility] [id number] 2020-03-28 00:00:00 [facility] [id number] 2020-03-28 00:00:00 [facility] [id number] 2020-03-28 00:00:00 [facility] [id number] 2020-03-28 00:00:00 [facility] [id number] 2020-03-28 00:00:00 [facility] [id number] 2020-03-28 00:00:00 [facility] [id number] 2020-03-28 00:00:00 [facility] [id number] 2020-03-28 00:00:00 [facility] [id number] 2020-03-28 00:00:00 [facility] [id number] 2020-03-28 00:00:00 [facility] [id number] 2020-03-28 00:00:00 [facility] [id number] 2020-03-28 00:00:00 [facility] [id number] 2020-03-28 00:00:00 [facility] [id number] 2020-03-28 00:00:00 [facility] [id number] 2020-03-28 00:00:00 [facility] [id number] 2020-03-28 00:00:00 [facility] [id number] 2020-03-28 00:00:00 [facility] [id number] 2020-03-28 00:00:00 [facility] [id number] 2020-03-28 00:00:00 [facility] [id number] 2020-03-28 00:00:00 [facility] [id number] 2020-03-28 00:00:00 [facility] [id number] 2020-03-28 00:00:00 [facility] [id number] 2020-03-28 00:00:00 [facility] [id number] 2019-06-29 00:00:00 [facility] [id number] 2019-06-29 00:00:00 [facility] [id number] 2019-06-29 00:00:00 [facility] [id number] 2019-06-29 00:00:00 [facility] [id number] 2019-06-29 00:00:00 [facility] [id number] 2019-06-29 00:00:00 [facility] [id number] 2019-06-29 00:00:00 [facility] Plan of Care Planned Activity Planned Date Details Comments Source Future Scheduled 2022-03-[address] [facility] 00:[facility] (12+) [code = Tobacco Cessation Counseling and Screening (12+)] Future Scheduled 2022-03-[address] [facility] Test 00:00[facility] (12+) [code = Tobacco Cessation Counseling and Screening (12+)] Future Scheduled 2022-03-[address] [facility] Test 00:00:00 (12+) [code = [facility] DEPRESSION SCREENING (12+)] Future Scheduled 2022-03-[address] [facility] Test 00:00:00 (12+) [code = [facility] DEPRESSION SCREENING (12+)] Future Scheduled 2021-12-29 HEPATITIS B VACCINES (1 [facility] 14:28:47 of 3 - 3-dose series) Hospit al [code = HEPATITIS B VACCINES (1 of 3 - 3-dose series)] Future Scheduled 2021-12-29 Pneumococcal Vaccine: [facility] 14:28:47 Pediatrics (0 to 5 Hospital Years) and At-Risk Patients (6 to 64 Years) (1 - PCV) [code = Pneumococcal Vaccine: Pediatrics (0 to 5 Years) and At-Risk Patients (6 to 64 Years) (1 - PCV)] Future Scheduled 2021-12-29 DIABETES: RETINAL EYE [facility] 14:28:47 EXAM [code = DIABETES: Hospi martha RETINAL EYE EXAM] Future Scheduled 2021-12-29 DIABETIC FOOT EXAM [facility] 14:28:47 [code = DIABETIC FOOT Hospit al EXAM] Future Scheduled 2021-12-29 SHINGLES VACCINES (1 of [facility] Test 14:28:47 2) [code = SHINGLES Hospital VACCINES (1 of 2)] Future Scheduled 2021-12-29 COLONOSCOPY SCREENING [facility] 14:28:47 [code = COLONOSCOPY Hospital SCREENING] Future Scheduled 2021-12-29 COVID-19 VACCINE (3 - [facility] 14:28:47 Booster for Pfizer Hospital series) [code = COVID-19 VACCINE (3 - Booster for Pfizer series)] Future Scheduled 2021-12-29 INFLUENZA VACCINE [code [facility] 14:28:47 = INFLUENZA VACCINE] Hospita l Future Scheduled 2021-12-29 HEPATITIS B VACCINES (1 [facility] Test 14:28:47 of 3 - 3-dose series) Hospit al [code = HEPATITIS B VACCINES (1 of 3 - 3-dose series)] Future Scheduled 2021-12-29 Pneumococcal Vaccine: [facility] 14:28:47 Pediatrics (0 to 5 Hospital Years) and At-Risk Patients (6 to 64 Years) (1 - PCV) [code = Pneumococcal Vaccine: Pediatrics (0 to 5 Years) and At-Risk Patients (6 to 64 Years) (1 - PCV)] Future Scheduled 2021-12-29 DIABETES: RETINAL EYE [facility] 14:28:47 EXAM [code = DIABETES: Hospi martha RETINAL EYE EXAM] Future Scheduled 2021-12-29 DIABETIC FOOT EXAM [facility] 14:28:47 [code = DIABETIC FOOT Hospit al EXAM] Future Scheduled 2021-12-29 SHINGLES VACCINES (1 of [facility] Test 14:28:47 2) [code = SHINGLES Hospital VACCINES (1 of 2)] Future Scheduled 2021-12-29 COLONOSCOPY SCREENING [facility] 14:28:47 [code = COLONOSCOPY Hospital SCREENING] Future Scheduled 2021-12-29 COVID-19 VACCINE (3 - [facility] 14:28:47 Booster for Pfizer Hospital series) [code = COVID-19 VACCINE (3 - Booster for Pfizer series)] Future Scheduled 2021-12-29 INFLUENZA VACCINE [code [facility] 14:28:47 = INFLUENZA VACCINE] Hospita l Future Scheduled 2021-12-17 [place] DEBRIDEMENT OPEN Ordered: [facility] Test 08:29:46 WOUND 20 SQ CM< [code = 12/17/2021 of M edicine 76462] Future Scheduled 2021-12-17 Screening for malignant [facility] Test 08:22:54 neoplasm of colon of Medicin e (procedure) [code = 318302344] Future Scheduled 2021-12-17 COVID-19 Vaccine (#1) [facility] Test 08:22:54 [code = COVID-19 of Medicine Vaccine (#1)] Future Scheduled 2021-12-17 Pneumococcal Combined [facility] Test 08:22:54 (1 - PCV) [code = of Medicin e Pneumococcal Combined (1 - PCV)] Future Scheduled 2021-12-17 TETANUS SHOT (ADULT) [facility] Test 08:22:54 [code = TETANUS SHOT of Medi cine (ADULT)] Future Scheduled 2021-12-17 Diabetic foot [facility] Test 08:22:54 examination of Medicine (regime/therapy) [code = 587474789] Future Scheduled 2021-12-17 ANNUAL DIABETIC [facility] Test 08:22:54 RETINOPATHY SCREENING of Med icine [code = ANNUAL DIABETIC RETINOPATHY SCREENING] Future Scheduled 2021-12-17 Hepatitis C screening [facility] Test 08:22:54 (procedure) [code = of Medic ine 436814033] Future Scheduled 2021-12-17 Human immunodeficiency [facility] Test 08:22:54 virus screening of Medicine (procedure) [code = 649810606] Future Scheduled 2021-12-17 ZOSTER VACCINE (1 of 2) [facility] Test 08:22:54 [code = ZOSTER VACCINE of Me dicine (1 of 2)] Future Scheduled 2021-12-17 BMI FOLLOW UP PLAN [facility] Test 08:22:54 [code = BMI FOLLOW UP of Med icine PLAN] Future Scheduled 2021-12-17 FLU VACCINE > 6 MONTHS [facility] Test 08:22:54 [code = FLU VACCINE > 6 of edicine MONTHS] Future Scheduled 2021-12-08 WOUND CARE INSTRUCTIONS Ordered: [facility] Test 15:49:27 [code = 54834] 12/08/2021 of Medicine Future Scheduled 2021-12-08 Screening for malignant [facility] Test 12:13:00 neoplasm of colon of Medicin e (procedure) [code = 461164490] Future Scheduled 2021-12-08 COVID-19 Vaccine (#1) [facility] Test 12:13:00 [code = COVID-19 of Medicine Vaccine (#1)] Future Scheduled 2021-12-08 Pneumococcal Combined [facility] Test 12:13:00 (1 - PCV) [code = of Medicin e Pneumococcal Combined (1 - PCV)] Future Scheduled 2021-12-08 TETANUS SHOT (ADULT) [facility] Test 12:13:00 [code = TETANUS SHOT of Medi cine (ADULT)] Future Scheduled 2021-12-08 Diabetic foot [facility] Test 12:13:00 examination of Medicine (regime/therapy) [code = 663322843] Future Scheduled 2021-12-08 ANNUAL DIABETIC [facility] Test 12:13:00 RETINOPATHY SCREENING of Med icine [code = ANNUAL DIABETIC RETINOPATHY SCREENING] Future Scheduled 2021-12-08 Hepatitis C screening [facility] Test 12:13:00 (procedure) [code = of Medic ine 438805284] Future Scheduled 2021-12-08 Human immunodeficiency [facility] Test 12:13:00 virus screening of Medicine (procedure) [code = 379038763] Future Scheduled 2021-12-08 ZOSTER VACCINE (1 of 2) [facility] Test 12:13:00 [code = ZOSTER VACCINE of Nv dicine (1 of 2)] Future Scheduled 2021-12-08 MEDICARE AWV (Initial) [facility] Test 12:13:00 [code = MEDICARE AWV of Medi cine (Initial)] Future Scheduled 2021-12-08 BMI FOLLOW UP PLAN [facility] Test 12:13:00 [code = BMI FOLLOW UP of Med icine PLAN] Future Scheduled 2021-12-08 FLU VACCINE > 6 MONTHS [facility] Test 12:13:00 [code = FLU VACCINE > 6 of M edicine MONTHS] Future Scheduled 2021-11-05 INFLUENZA VACCINE (#1) [facility] Test 00:00:00 [code = INFLUENZA Medical Ce nter VACCINE (#1)] Future Scheduled 2021-11-05 INFLUENZA VACCINE (#1) [facility] Test 00:00:00 [code = INFLUENZA Medical Ce nter VACCINE (#1)] Future Scheduled 2021-11-05 INFLUENZA VACCINE (#1) [facility] Test 00:00:00 [code = INFLUENZA Medical Ce nter VACCINE (#1)] Future Scheduled 2021-11-05 INFLUENZA VACCINE (#1) [facility] Test 00:00:00 [code = INFLUENZA Medical Ce nter VACCINE (#1)] Future Scheduled 2021-09-13 VT DEBRIDEMENT, SKIN, Ordered: [facility] Test 10:19:48 SUB-Q TISSUE,=<20 SQ CM 09/13/2021 of M edicine [code = 28483] Future Scheduled 2021-09-13 Screening for malignant [facility] Test 10:19:26 neoplasm of colon of Medicin e (procedure) [code = 300742541] Future Scheduled 2021-09-13 COVID-19 Vaccine (#1) [facility] Test 10:19:26 [code = COVID-19 of Medicine Vaccine (#1)] Future Scheduled 2021-09-13 Pneumococcal Combined [facility] Test 10:19:26 (1 - PCV) [code = of Medicin e Pneumococcal Combined (1 - PCV)] Future Scheduled 2021-09-13 TETANUS SHOT (ADULT) [facility] Test 10:19:26 [code = TETANUS SHOT of Medi cine (ADULT)] Future Scheduled 2021-09-13 Diabetic foot [facility] Test 10:19:26 examination of Medicine (regime/therapy) [code = 831937167] Future Scheduled 2021-09-13 ANNUAL DIABETIC [facility] Test 10:19:26 RETINOPATHY SCREENING of Med icine [code = ANNUAL DIABETIC RETINOPATHY SCREENING] Future Scheduled 2021-09-13 Hepatitis C screening [facility] Test 10:19:26 (procedure) [code = of Medic ine 606247056] Future Scheduled 2021-09-13 Human immunodeficiency [facility] Test 10:19:26 virus screening of Medicine (procedure) [code = 438386412] Future Scheduled 2021-09-13 ZOSTER VACCINE (1 of 2) [facility] Test 10:19:26 [code = ZOSTER VACCINE of Nv dicine (1 of 2)] Future Scheduled 2021-09-13 [facility]IC[facility] AW[facility] (Initial[facility] Test 10:19:26 [code = MEDICARE AWV of Medi cine (Initial)] Future Scheduled 2021-09-13 BMI FOLLOW UP PLAN [facility] [place] Test 10:19:26 [code = BMI FOLLOW UP of Med icine PLAN] Future Scheduled 2021-09-13 FLU VACCINE > [address] [facility] Test 10:19:26 [code = FLU VACCINE > 6 of M edicine MONTHS] Future Scheduled 2021-08-13 Screening for malignant [facility] Test 15:24:00 neoplasm of colon of Medicin e (procedure) [code = 845657922] Future Scheduled 2021-08-13 COVID-19 Vaccine (#1) [facility] Test 15:24:00 [code = COVID-19 of Medicine Vaccine (#1)] Future Scheduled 2021-08-13 Pneumococcal Combined [facility] Test 15:24:00 (1 - PCV) [code = of Medicin e Pneumococcal Combined (1 - PCV)] Future Scheduled 2021-08-13 TETANUS SHOT (ADULT) [facility] Test 15:24:00 [code = TETANUS SHOT of Medi cine (ADULT)] Future Scheduled 2021-08-13 Diabetic foot [facility] Test 15:24:00 examination of Medicine (regime/therapy) [code = 241431435] Future Scheduled 2021-08-13 ANNUAL DIABETIC [facility] Test 15:24:00 RETINOPATHY SCREENING of Med icine [code = ANNUAL DIABETIC RETINOPATHY SCREENING] Future Scheduled 2021-08-13 Hepatitis C screening [facility] Test 15:24:00 (procedure) [code = of Medic ine 999570096] Future Scheduled 2021-08-13 Human immunodeficiency [facility] Test 15:24:00 virus screening of Medicine (procedure) [code = 945041658] Future Scheduled 2021-08-13 ZOSTER VACCINE (1 of 2) [facility] Test 15:24:00 [code = ZOSTER VACCINE of Me dicine (1 of 2)] Future Scheduled 2021-08-13 MEDICARE AWV (Initial) [facility] Test 15:24:00 [code = MEDICARE AWV of Medi cine (Initial)] Future Scheduled 2021-08-13 BMI FOLLOW UP PLAN [facility] Test 15:24:00 [code = BMI FOLLOW UP of Med icine PLAN] Future Scheduled 2021-08-13 FLU VACCINE > 6 MONTHS [facility] Test 15:24:00 [code = FLU VACCINE > 6 of M edicine MONTHS] Future Scheduled 2021-08-07 Screening for malignant [facility] Test 15:20:05 neoplasm of colon of Medicin e (procedure) [code = 243251970] Future Scheduled 2021-08-07 COVID-19 Vaccine (#1) [facility] Test 15:20:05 [code = COVID-19 of Medicine Vaccine (#1)] Future Scheduled 2021-08-07 Pneumococcal Combined [facility] Test 15:20:05 (1 - PCV) [code = of Medicin e Pneumococcal Combined (1 - PCV)] Future Scheduled 2021-08-07 TETANUS SHOT (ADULT) [facility] Test 15:20:05 [code = TETANUS SHOT of Medi cine (ADULT)] Future Scheduled 2021-08-07 Diabetic foot [facility] Test 15:20:05 examination of Medicine (regime/therapy) [code = 028435055] Future Scheduled 2021-08-07 ANNUAL DIABETIC [facility] Test 15:20:05 RETINOPATHY SCREENING of Med icine [code = ANNUAL DIABETIC RETINOPATHY SCREENING] Future Scheduled 2021-08-07 Hepatitis C screening [facility] Test 15:20:05 (procedure) [code = of Medic ine 773062496] Future Scheduled 2021-08-07 Human immunodeficiency [facility] Test 15:20:05 virus screening of Medicine (procedure) [code = 864611453] Future Scheduled 2021-08-07 ZOSTER VACCINE (1 of 2) [facility] Test 15:20:05 [code = ZOSTER VACCINE of Nv dicine (1 of 2)] Future Scheduled 2021-08-07 MEDICARE AWV (Initial) [facility] Test 15:20:05 [code = MEDICARE AWV of Medi cine (Initial)] Future Scheduled 2021-08-07 BMI FOLLOW UP PLAN [facility] Test 15:20:05 [code = BMI FOLLOW UP of Med icine PLAN] Future Scheduled 2021-08-07 FLU VACCINE > 6 MONTHS [facility] Test 15:20:05 [code = FLU VACCINE > 6 of M edicine MONTHS] Future Scheduled 2021-08-04 WOUND CARE INSTRUCTIONS Ordered: [facility] Test 17:21:14 [code = 74122] 08/04/2021 of Medicine Future Scheduled 2021-07-31 Screening for malignant [facility] Test 12:21:49 neoplasm of colon of Medicin e (procedure) [code = 199717242] Future Scheduled 2021-07-31 COVID-19 Vaccine (#1) [facility] Test 12:21:49 [code = COVID-19 of Medicine Vaccine (#1)] Future Scheduled 2021-07-31 Pneumococcal Combined [facility] Test 12:21:49 (1 - PCV) [code = of Medicin e Pneumococcal Combined (1 - PCV)] Future Scheduled 2021-07-31 TETANUS SHOT (ADULT) [facility] Test 12:21:49 [code = TETANUS SHOT of Medi cine (ADULT)] Future Scheduled 2021-07-31 Diabetic foot [facility] Test 12:21:49 examination of Medicine (regime/therapy) [code = 236989850] Future Scheduled 2021-07-31 ANNUAL DIABETIC [facility] Test 12:21:49 RETINOPATHY SCREENING of Med icine [code = ANNUAL DIABETIC RETINOPATHY SCREENING] Future Scheduled 2021-07-31 Hepatitis C screening [facility] Test 12:21:49 (procedure) [code = of Medic ine 493191837] Future Scheduled 2021-07-31 Human immunodeficiency [facility] Test 12:21:49 virus screening of Medicine (procedure) [code = 349600485] Future Scheduled 2021-07-31 ZOSTER VACCINE (1 of 2) [facility] Test 12:21:49 [code = ZOSTER VACCINE of Nv dicine (1 of 2)] Future Scheduled 2021-07-31 MEDICARE AWV (Initial) [facility] Test 12:21:49 [code = MEDICARE AWV of Medi cine (Initial)] Future Scheduled 2021-07-31 BMI FOLLOW UP PLAN [facility] Test 12:21:49 [code = BMI FOLLOW UP of Med icine PLAN] Future Scheduled 2021-07-31 FLU VACCINE > 6 MONTHS [facility] Test 12:21:49 [code = FLU VACCINE > 6 of edicine MONTHS] Future Scheduled 2021-07-21 US PREOP VESSEL MAPPING 1 Occurrences [facility] Test 11:28:01 HD ACCESS ARM RENNY [code starting of M edicine = 79105] 07/21/2021 until 07/21/2022 Future Scheduled 2021-06-01 VT DEBRIDEMENT OPEN Ordered: [facility] Test 07:15:12 WOUND 20 SQ CM< [code = 06/01/2021 of M edicine 28681] Future Scheduled 2021-06-01 Screening for malignant [facility] Test 07:06:46 neoplasm of colon of Medicin e (procedure) [code = 351989536] Future Scheduled 2021-06-01 COVID-19 Vaccine (1) [facility] Test 07:06:46 [code = COVID-19 of Medicine Vaccine (1)] Future Scheduled 2021-06-01 Pneumococcal Combined [facility] Test 07:06:46 (1 of 2 - PPSV23) [code of edicine = Pneumococcal Combined (1 of 2 - PPSV23)] Future Scheduled 2021-06-01 TETANUS SHOT (ADULT) [facility] Test 07:06:46 [code = TETANUS SHOT of Medi cine (ADULT)] Future Scheduled 2021-06-01 Diabetic foot [facility] Test 07:06:46 examination of Medicine (regime/therapy) [code = 074077512] Future Scheduled 2021-06-01 ANNUAL DIABETIC [facility] Test 07:06:46 RETINOPATHY SCREENING of Med icine [code = ANNUAL DIABETIC RETINOPATHY SCREENING] Future Scheduled 2021-06-01 Hepatitis C screening [facility] Test 07:06:46 (procedure) [code = of Medic ine 438798705] Future Scheduled 2021-06-01 Human immunodeficiency [facility] Test 07:06:46 virus screening of Medicine (procedure) [code = 481261847] Future Scheduled 2021-06-01 ZOSTER VACCINE (1 of 2) [facility] Test 07:06:46 [code = ZOSTER VACCINE of Me dicine (1 of 2)] Future Scheduled 2021-06-01 MEDICARE AWV (Initial) [facility] Test 07:06:46 [code = MEDICARE AWV of Medi cine (Initial)] Future Scheduled 2021-06-01 FLU VACCINE > 6 MONTHS [facility] Test 07:06:46 [code = FLU VACCINE > 6 of edicine MONTHS] Future Scheduled 2021-06-01 BMI FOLLOW UP PLAN [facility] Test 07:06:46 [code = BMI FOLLOW UP of Med icine PLAN] Future Scheduled 2021-05-26 WOUND CARE INSTRUCTIONS Ordered: [facility] Test 16:55:26 [code = 85865] 05/26/2021 of Medicine Future Scheduled 2021-05-08 VT DEBRIDEMENT OPEN Ordered: [facility] Test 10:32:08 WOUND 20 SQ CM< [code = 05/08/2021 of M edicine 43458] Future Scheduled 2021-05-08 VT DEBRIDEMENT OPEN Ordered: [facility] Test 10:32:08 WOUND EA ADDL 20 SQ CM 05/08/2021 of Me dicine [code = 92860] Future Scheduled 2021-05-08 Screening for malignant [facility] Test 10:19:03 neoplasm of colon of Medicin e (procedure) [code = 572292379] Future Scheduled 2021-05-08 COVID-19 Vaccine (1) [facility] Test 10:19:03 [code = COVID-19 of Medicine Vaccine (1)] Future Scheduled 2021-05-08 Pneumococcal Combined [facility] Test 10:19:03 (1 of 2 - PPSV23) [code of M edicine = Pneumococcal Combined (1 of 2 - PPSV23)] Future Scheduled 2021-05-08 TETANUS SHOT (ADULT) [facility] Test 10:19:03 [code = TETANUS SHOT of Medi cine (ADULT)] Future Scheduled 2021-05-08 Diabetic foot [facility] Test 10:19:03 examination of Medicine (regime/therapy) [code = 320438316] Future Scheduled 2021-05-08 ANNUAL DIABETIC [facility] Test 10:19:03 RETINOPATHY SCREENING of Med icine [code = ANNUAL DIABETIC RETINOPATHY SCREENING] Future Scheduled 2021-05-08 Hepatitis C screening [facility] Test 10:19:03 (procedure) [code = of Medic ine 294221571] Future Scheduled 2021-05-08 Human immunodeficiency [facility] Test 10:19:03 virus screening of Medicine (procedure) [code = 225430729] Future Scheduled 2021-05-08 ZOSTER VACCINE (1 of 2) [facility] Test 10:19:03 [code = ZOSTER VACCINE of Me dicine (1 of 2)] Future Scheduled 2021-05-08 MEDICARE AWV (Initial) [facility] Test 10:19:03 [code = MEDICARE AWV of Medi cine (Initial)] Future Scheduled 2021-05-08 FLU VACCINE > 6 MONTHS [facility] Test 10:19:03 [code = FLU VACCINE > 6 of M edicine MONTHS] Future Scheduled 2021-05-08 BMI FOLLOW UP PLAN [facility] Test 10:19:03 [code = BMI FOLLOW UP of Med icine PLAN] Future Scheduled 2021-05-05 WOUND CARE INSTRUCTIONS Ordered: [facility] Test 16:34:35 [code = 48721] 05/05/2021 of Medicine Future Scheduled 2021-04-09 Screening for malignant [facility] Test 17:32:59 neoplasm of colon of Medicin e (procedure) [code = 926797652] Future Scheduled 2021-04-09 COVID-19 Vaccine (1) [facility] Test 17:32:59 [code = COVID-19 of Medicine Vaccine (1)] Future Scheduled 2021-04-09 Pneumococcal Combined [facility] Test 17:32:59 (1 of 2 - PPSV23) [code of M edicine = Pneumococcal Combined (1 of 2 - PPSV23)] Future Scheduled 2021-04-09 TETANUS SHOT (ADULT) [facility] Test 17:32:59 [code = TETANUS SHOT of Medi cine (ADULT)] Future Scheduled 2021-04-09 Diabetic foot [facility] Test 17:32:59 examination of Medicine (regime/therapy) [code = 043011139] Future Scheduled 2021-04-09 ANNUAL DIABETIC [facility] Test 17:32:59 RETINOPATHY SCREENING of Med icine [code = ANNUAL DIABETIC RETINOPATHY SCREENING] Future Scheduled 2021-04-09 Hepatitis C screening [facility] Test 17:32:59 (procedure) [code = of Medic ine 339310305] Future Scheduled 2021-04-09 Human immunodeficiency [facility] Test 17:32:59 virus screening of Medicine (procedure) [code = 210165631] Future Scheduled 2021-04-09 ZOSTER VACCINE (1 of 2) [facility] Test 17:32:59 [code = ZOSTER VACCINE of Me dicine (1 of 2)] Future Scheduled 2021-04-09 MEDICARE AWV (Initial) [facility] Test 17:32:59 [code = MEDICARE AWV of Medi cine (Initial)] Future Scheduled 2021-04-09 FLU VACCINE > 6 MONTHS [facility] [employer] Test 17:32:59 [code = FLU VACCINE > 6 of M edicine MONTHS] Future Scheduled 2021-04-09 BMI FOLLOW UP PLAN [facility] Test 17:32:59 [code = BMI FOLLOW UP of Med icine PLAN] Future Scheduled 2021-04-07 WOUND CARE INSTRUCTIONS Ordered: [facility] Test 16:17:20 [code = 11026] 04/07/2021 of Medicine Future Scheduled 2021-03-[address] [facility] Test 00:00:00 WELLNESS (YEAR 2 or Medical Center FIRST YEAR if no IPPE) [code = MEDICARE ANNUAL WELLNESS (YEAR 2 or FIRST YEAR if no IPPE)] Future Scheduled 2021-03-[address] [facility] Test 00:00:00 WELLNESS (YEAR 2 or Medical Center FIRST YEAR if no IPPE) [code = MEDICARE ANNUAL WELLNESS (YEAR 2 or FIRST YEAR if no IPPE)] Future Scheduled 2021-03-[address] [facility] Test 00:00:00 WELLNESS (YEAR 2 or Medical Center FIRST YEAR if no IPPE) [code = MEDICARE ANNUAL WELLNESS (YEAR 2 or FIRST YEAR if no IPPE)] Future Scheduled 2021-03-[address] [facility] Test 00:00:00 WELLNESS (YEAR 2 or Medical Center FIRST YEAR if no IPPE) [code = MEDICARE ANNUAL WELLNESS (YEAR 2 or FIRST YEAR if no IPPE)] Future Scheduled 2021-03-[address] [facility] Test 00:00:00 (12+) [code = Medical Center DEPRESSION SCREENING (12+)] Future Scheduled 2021-03-[address] [facility] Test 00:00:00 (12+) [code = Medical Center DEPRESSION SCREENING (12+)] Future Scheduled 2021-02-10 VT DEBRIDEMENT, SKIN, Ordered: [facility] Test 15:30:13 SUB-Q TISSUE,=<20 SQ CM 02/10/2021 of M edicine [code = 05464] Future Scheduled 2021-02-10 Screening for malignant [facility] Test 15:18:14 neoplasm of colon of Medicin e (procedure) [code = 683181937] Future Scheduled 2021-02-10 Pneumococcal Combined [facility] Test 15:18:14 (1 of 2 - PPSV23) [code of M edicine = Pneumococcal Combined (1 of 2 - PPSV23)] Future Scheduled 2021-02-10 COVID-19 Vaccine (1) [facility] Test 15:18:14 [code = COVID-19 of Medicine Vaccine (1)] Future Scheduled 2021-02-10 TETANUS SHOT (ADULT) [facility] Test 15:18:14 [code = TETANUS SHOT of Medi cine (ADULT)] Future Scheduled 2021-02-10 Diabetic foot [facility] Test 15:18:14 examination of Medicine (regime/therapy) [code = 944690151] Future Scheduled 2021-02-10 ANNUAL DIABETIC [facility] Test 15:18:14 RETINOPATHY SCREENING of Med icine [code = ANNUAL DIABETIC RETINOPATHY SCREENING] Future Scheduled 2021-02-10 Hepatitis C screening [facility] Test 15:18:14 (procedure) [code = of Medic ine 830242411] Future Scheduled 2021-02-10 Human immunodeficiency [facility] Test 15:18:14 virus screening of Medicine (procedure) [code = 457674585] Future Scheduled 2021-02-10 ZOSTER VACCINE (1 of 2) [facility] Test 15:18:14 [code = ZOSTER VACCINE of Me dicine (1 of 2)] Future Scheduled 2021-02-10 MEDICARE AWV (Initial) [facility] Test 15:18:14 [code = MEDICARE AWV of Medi cine (Initial)] Future Scheduled 2021-02-10 FLU VACCINE > 6 MONTHS [facility] Test 15:18:14 [code = FLU VACCINE > 6 of edicine MONTHS] Future Scheduled 2021-02-10 BMI FOLLOW UP PLAN [facility] Test 15:18:14 [code = BMI FOLLOW UP of Med icine PLAN] Future Scheduled 2021-01-20 US ARTERIAL LEGS 1 Occurrences [facility] Test 11:28:17 BILATERAL [code = starting of Medicin e 28997-9] 01/20/2021 until 01/20/2022 Future Scheduled 2021-01-20 Screening for malignant [facility] Test 11:24:40 neoplasm of colon of Medicin e (procedure) [code = 843144562] Future Scheduled 2021-01-20 Pneumococcal Combined [facility] Test 11:24:40 (1 of 2 - PPSV23) [code of M edicine = Pneumococcal Combined (1 of 2 - PPSV23)] Future Scheduled 2021-01-20 COVID-19 Vaccine (1) [facility] Test 11:24:40 [code = COVID-19 of Medicine Vaccine (1)] Future Scheduled 2021-01-20 TETANUS SHOT (ADULT) [facility] Test 11:24:40 [code = TETANUS SHOT of Medi cine (ADULT)] Future Scheduled 2021-01-20 Diabetic foot [facility] Test 11:24:40 examination of Medicine (regime/therapy) [code = 729760118] Future Scheduled 2021-01-20 ANNUAL DIABETIC [facility] Test 11:24:40 RETINOPATHY SCREENING of Med icine [code = ANNUAL DIABETIC RETINOPATHY SCREENING] Future Scheduled 2021-01-20 Hepatitis C screening [facility] Test 11:24:40 (procedure) [code = of Medic ine 717626013] Future Scheduled 2021-01-20 Human immunodeficiency [facility] Test 11:24:40 virus screening of Medicine (procedure) [code = 370420771] Future Scheduled 2021-01-20 ZOSTER VACCINE (1 of 2) [facility] Test 11:24:40 [code = ZOSTER VACCINE of Nv dicine (1 of 2)] Future Scheduled 2021-01-20 MEDICARE AWV (Initial) [facility] Test 11:24:40 [code = MEDICARE AWV of [facility] cine (Initial)] Future Scheduled 2021-01-20 FLU VACCINE > 6 MONTHS [facility] Test 11:24:40 [code = FLU VACCINE > 6 of edicine MONTHS] Future Scheduled 2021-01-20 BMI FOLLOW UP PLAN [facility] Test 11:24:40 [code = BMI FOLLOW UP of Med icine PLAN] Future Scheduled 2021-01-04 VT DEBRIDEMENT, SKIN, Ordered: [facility] Test 21:20:15 SUB-Q TISSUE,=<20 SQ CM 01/04/2021 of M edicine [code = 38838] Future Scheduled 2021-01-04 Screening for malignant [facility] Test 21:13:01 neoplasm of colon of Medicin e (procedure) [code = 177879363] Future Scheduled 2021-01-04 COVID-19 Vaccine (1) [facility] Test 21:13:01 [code = COVID-19 of Medicine Vaccine (1)] Future Scheduled 2021-01-04 TETANUS SHOT (ADULT) [facility] Test 21:13:01 [code = TETANUS SHOT of Medi cine (ADULT)] Future Scheduled 2021-01-04 Diabetic foot [facility] Test 21:13:01 examination of Medicine (regime/therapy) [code = 873401062] Future Scheduled 2021-01-04 ANNUAL DIABETIC [facility] Test 21:13:01 RETINOPATHY SCREENING of Med icine [code = ANNUAL DIABETIC RETINOPATHY SCREENING] Future Scheduled 2021-01-04 Hepatitis C screening [facility] Test 21:13:01 (procedure) [code = of Medic ine [id number]] Future Scheduled 2021-01-04 Human immunodeficiency [facility] Test 21:13:01 virus screening of Medicine (procedure) [code = 540845330] Future Scheduled 2021-01-04 ZOSTER VACCINE (1 of 2) [facility] Test 21:13:01 [code = ZOSTER VACCINE of Nv dicine (1 of 2)] Future Scheduled 2021-01-04 MEDICARE AWV (Initial) [facility] Test 21:13:01 [code = MEDICARE AWV of Medi cine (Initial)] Future Scheduled 2021-01-04 FLU [facility]INE [facility] MONTHS [facility] 21:13:01 [code = FLU VACCINE > 6 of edicine MONTHS] Future Scheduled 2021-01-04 BMI FOLLOW UP PLAN [facility] Test 21:13:01 [code = BMI FOLLOW UP of Med icine PLAN] Future Scheduled 2020-12-03 [place] DEBRIDEMENT OPEN Ordered: [facility] or [facility] Test 09:58:36 WOUND 20 SQ CM< [code = 12/03/2020 of edicine 12452] Future Scheduled 2020-12-03 [place] DEBRIDEMENT OPEN Ordered: [facility] [employer] Test 09:58:36 WOUND 20 SQ CM< [code = 12/03/2020 of edicine 64042] Future Scheduled 2020-12-03 Screening for malignant [facility] Test 09:53:42 neoplasm of colon of Medicin e (procedure) [code = 436376192] Future Scheduled 2020-12-03 COVID-19 Vaccine (1) [facility] Test 09:53:42 [code = COVID-19 of Medicine Vaccine (1)] Future Scheduled 2020-12-03 TETANUS SHOT (ADULT) [facility] Test 09:53:42 [code = TETANUS SHOT of Medi cine (ADULT)] Future Scheduled 2020-12-03 Diabetic foot [facility] Test 09:53:42 examination of Medicine (regime/therapy) [code = 734150664] Future Scheduled 2020-12-03 ANNUAL DIABETIC [facility] Test 09:53:42 RETINOPATHY SCREENING of Med icine [code = ANNUAL DIABETIC RETINOPATHY SCREENING] Future Scheduled 2020-12-03 Hepatitis C screening [facility] Test 09:53:42 (procedure) [code = of Medic ine [id number]] Future Scheduled 2020-12-03 Human immunodeficiency [facility] Test 09:53:42 virus screening of Medicine (procedure) [code = 088437656] Future Scheduled 2020-12-03 ZOSTER VACCINE (1 of 2) [facility] Test 09:53:42 [code = ZOSTER VACCINE of Me dicine (1 of 2)] Future Scheduled 2020-12-03 MEDICARE AWV (Initial) [facility] Test 09:53:42 [code = MEDICARE AWV of Medi cine (Initial)] Future Scheduled 2020-12-03 FLU VACCINE > [address] [facility] Test 09:53:42 [code = FLU VACCINE > 6 of M edicine MONTHS] Future Scheduled 2020-12-03 BMI FOLLOW UP PLAN [facility] Test 09:53:42 [code = BMI FOLLOW UP of Med icine PLAN] Future Scheduled 2020-12-03 Screening for malignant [facility] Test 09:53:42 neoplasm of colon of Medicin e (procedure) [code = 357363294] Future Scheduled 2020-12-03 COVID-19 Vaccine (1) [facility] Test 09:53:42 [code = COVID-19 of Medicine Vaccine (1)] Future Scheduled 2020-12-03 TETANUS SHOT (ADULT) [facility] Test 09:53:42 [code = TETANUS SHOT of Medi cine (ADULT)] Future Scheduled 2020-12-03 Diabetic foot [facility] Test 09:53:42 examination of Medicine (regime/therapy) [code = 131238221] Future Scheduled 2020-12-03 ANNUAL DIABETIC [facility] Test 09:53:42 RETINOPATHY SCREENING of Med icine [code = ANNUAL DIABETIC RETINOPATHY SCREENING] Future Scheduled 2020-12-03 Hepatitis C screening [employer] Test 09:53:42 (procedure) [code = of Medic ine [id number]] Future Scheduled 2020-12-03 [facility] 09:53:42 virus screening of Medicine (procedure) [code = 070971791] Future Scheduled 2020-12-03 ZOSTER VACCINE (1 of 2) [employer] Test 09:53:42 [code = ZOSTER VACCINE of Me dicine (1 of 2)] Future Scheduled 2020-12-03 [facility]IC[facility] (Initial[facility] 09:53:42 [code = MEDICARE AWV of Medi cine (Initial)] Future Scheduled 2020-12-03 FLU VACCINE > 6 MONTHS [facility] Test 09:53:42 [code = FLU VACCINE > 6 of edicine MONTHS] Future Scheduled 2020-12-03 BMI FOLLOW UP PLAN [facility] [employer] Test 09:53:42 [code = BMI FOLLOW UP of Med icine PLAN] Future Scheduled 2020-11-25 WOUND CARE INSTRUCTIONS Ordered: [facility] Test 16:09:42 [code = 51352] 11/25/2020 of Medicine Future Scheduled 2020-11-25 WOUND CARE INSTRUCTIONS Ordered: [facility] Test 16:09:42 [code = 86847] 11/25/2020 of Medicine Future Scheduled 2020-11-03 [place] DRAINAGE OF Ordered: [facility] [employer] Test 12:26:16 HEMATOMA/FLUID [code = 11/03/2020 of Me dicine 97707] Future Scheduled 2020-11-03 [place] DEBRIDEMENT OPEN Ordered: [facility] [place] Test 12:26:16 WOUND 20 SQ CM< [code = 11/03/2020 of M edicine 68122] Future Scheduled 2020-11-03 Hepatitis C screening [employer] Test 09:36:18 (procedure) [code = of Medic ine 918375170] Future Scheduled 2020-11-03 [facility] 09:36:18 virus screening of Medicine (procedure) [code = 139988177] Future Scheduled 2020-11-03 ZOSTER VACCINE (1 of 2) [facility] Test 09:36:18 [code = ZOSTER VACCINE of Me dicine (1 of 2)] Future Scheduled 2020-11-03 MEDICARE AWV (Initial) [facility] Test 09:36:18 [code = MEDICARE AWV of Medi cine (Initial)] Future Scheduled 2020-11-03 FLU VACCINE > 6 MONTHS [employer] Test 09:36:18 [code = FLU VACCINE > 6 of M edicine MONTHS] Future Scheduled 2020-11-03 BMI FOLLOW UP PLAN [employer] Test 09:36:18 [code = BMI FOLLOW UP of Med icine PLAN] Future Scheduled 2020-11-03 Screening for malignant [facility] Test 09:36:18 neoplasm of colon of Medicin e (procedure) [code = 004319962] Future Scheduled 2020-11-03 COVID-19 Vaccine (1) [facility] [employer] Test 09:36:18 [code = COVID-19 of Medicine Vaccine (1)] Future Scheduled 2020-11-03 TETANUS SHOT (ADULT) [facility] [employer] Test 09:36:18 [code = TETANUS SHOT of Medi cine (ADULT)] Future Scheduled 2020-11-03 Diabetic foot [facility] [employer] Test 09:36:18 examination of Medicine (regime/therapy) [code = 729588704] Future Scheduled 2020-11-03 ANNUAL DIABETIC [facility] [employer] Test 09:36:18 RETINOPATHY SCREENING of Med icine [code = ANNUAL DIABETIC RETINOPATHY SCREENING] Future Scheduled 2020-10-28 WOUND CARE INSTRUCTIONS Ordered: [facility] Test 17:23:33 [code = 66775] 10/28/2020 of Medicine Future Scheduled 2020-10-26 Screening for malignant [facility] Test 23:34:24 neoplasm of colon of Medicin e (procedure) [code = 144971263] Future Scheduled 2020-10-26 COVID-19 Vaccine (1) [facility] [employer] Test 23:34:24 [code = COVID-19 of Medicine Vaccine (1)] Future Scheduled 2020-10-26 TETANUS SHOT (ADULT) [facility] [employer] Test 23:34:24 [code = TETANUS SHOT of Medi cine (ADULT)] Future Scheduled 2020-10-26 Diabetic foot [facility] [employer] Test 23:34:24 examination of Medicine (regime/therapy) [code = 666666571] Future Scheduled 2020-10-26 ANNUAL DIABETIC [facility] Test 23:34:24 RETINOPATHY SCREENING of Med icine [code = ANNUAL DIABETIC RETINOPATHY SCREENING] Future Scheduled 2020-10-26 Hepatitis C screening [employer] Test 23:34:24 (procedure) [code = of Medic ine 793541710] Future Scheduled 2020-10-26 Human immunodeficiency [facility] Test 23:34:24 virus screening of Medicine (procedure) [code = 711662436] Future Scheduled 2020-10-26 ZOSTER VACCINE (1 of 2) [facility] Test 23:34:24 [code = ZOSTER VACCINE of Me dicine (1 of 2)] Future Scheduled 2020-10-26 MEDICARE AWV (Initial) [facility] Test 23:34:24 [code = MEDICARE AWV of Medi cine (Initial)] Future Scheduled 2020-10-26 FLU VACCINE > 6 MONTHS [facility] 23:34:24 [code = FLU VACCINE > 6 of M edicine MONTHS] Future Scheduled 2020-10-26 BMI FOLLOW UP PLAN [facility] [employer] Test 23:34:24 [code = BMI FOLLOW UP of Med icine PLAN] Future Scheduled 2020-09-[address] [facility]00 measurement (procedure) [facility] [code = 67371666] Future Scheduled 2020-09-[address] [facility] Test 00:[facility]:00 measurement (procedure) [facility] [code = 09429820] Future Scheduled 2020-09-[address] [facility] Test 00:[facility]:00 measurement (procedure) [facility] [code = 86265993] Future Scheduled 2020-09-[address] [facility] Test 00:00:00 measurement (procedure) [facility] [code = 92093392] Future Scheduled 2020-09-02 Screening for malignant [facility] Test 18:54:49 neoplasm of colon of Medicin e (procedure) [code = 498044176] Future Scheduled 2020-09-02 COVID-19 Vaccine (1) [facility] Test 18:54:49 [code = COVID-19 of Medicine Vaccine (1)] Future Scheduled 2020-09-02 TETANUS SHOT (ADULT) [facility] Test 18:54:49 [code = TETANUS SHOT of Medi cine (ADULT)] Future Scheduled 2020-09-02 Diabetic foot [facility] [employer] Test 18:54:49 examination of Medicine (regime/therapy) [code = 263672475] Future Scheduled 2020-09-02 ANNUAL DIABETIC [facility] Test 18:54:49 RETINOPATHY SCREENING of Med icine [code = ANNUAL DIABETIC RETINOPATHY SCREENING] Future Scheduled 2020-09-02 Hepatitis C screening [facility] Test 18:54:49 (procedure) [code = of Medic ine 067980361] Future Scheduled 2020-09-02 Human immunodeficiency [facility] Test 18:54:49 virus screening of Medicine (procedure) [code = 956512737] Future Scheduled 2020-09-02 ZOSTER VACCINE (1 of 2) [facility] Test 18:54:49 [code = ZOSTER VACCINE of Me dicine (1 of 2)] Future Scheduled 2020-09-02 MEDICARE AWV (Initial) [facility] Test 18:54:49 [code = MEDICARE AWV of Medi cine (Initial)] Future Scheduled 2020-09-02 FLU VACCINE > 6 MONTHS [facility] Test 18:54:49 [code = FLU VACCINE > 6 of M edicine MONTHS] Future Scheduled 2020-09-02 BMI FOLLOW UP PLAN [facility] Test 18:54:49 [code = BMI FOLLOW UP of Med icine PLAN] Future Scheduled 2020-08-19 WOUND CARE INSTRUCTIONS Ordered: [facility] Test 16:42:50 [code = 47051] 08/19/2020 of Medicine Future Scheduled 2020-08-10 [place] DEBRIDEMENT, SKIN, Ordered: [facility] Test 12:01:06 SUB-Q 08/10/2020 of Medicine TISSUE,MUSCLE,=<20 SQ CM [code = 52606] Future Scheduled 2020-08-10 Screening for malignant [facility] Test 11:57:36 neoplasm of colon of Medicin e (procedure) [code = 043866862] Future Scheduled 2020-08-10 COVID-19 Vaccine (1) [facility] Test 11:57:36 [code = COVID-19 of Medicine Vaccine (1)] Future Scheduled 2020-08-10 TETANUS SHOT (ADULT) [facility] Test 11:57:36 [code = TETANUS SHOT of Medi cine (ADULT)] Future Scheduled 2020-08-10 Diabetic foot [facility] [employer] Test 11:57:36 examination of Medicine (regime/therapy) [code = 228971821] Future Scheduled 2020-08-10 ANNUAL DIABETIC [facility] [employer] Test 11:57:36 RETINOPATHY SCREENING of Med icine [code = ANNUAL DIABETIC RETINOPATHY SCREENING] Future Scheduled 2020-08-10 Hepatitis C screening [employer] Test 11:57:36 (procedure) [code = of Medic ine 966523817] Future Scheduled 2020-08-10 [facility] 11[facility]57:[facility] virus screening of Medicine (procedure) [code = 724314700] Future Scheduled 2020-08-10 ZOSTER VACCINE (1 of 2) [employer] Test 11:57:36 [code = ZOSTER VACCINE of Me dicine (1 of 2)] Future Scheduled 2020-08-10 [facility]ICARE AWV (Initial) [facility] 11:57:36 [code = MEDICARE AWV of Medi cine (Initial)] Future Scheduled 2020-08-10 FLU VACCINE > 6 MONTHS [facility] Test 11:57:36 [code = FLU VACCINE > 6 of M edicine MONTHS] Future Scheduled 2020-08-10 BMI FOLLOW UP PLAN [facility] [place] Test 11:57:36 [code = BMI FOLLOW UP of Med icine PLAN] Future Scheduled 2020-07-30 BMI FOLLOW UP PLAN [facility] Test 15:31:06 [code = BMI FOLLOW UP of Med icine PLAN] Future Scheduled 2020-07-30 Screening for malignant [facility] Test 08:53:16 neoplasm of colon of Medicin e (procedure) [code = 713931211] Future Scheduled 2020-07-30 COVID-19 Vaccine (1) [facility] Test 08:53:16 [code = COVID-19 of Medicine Vaccine (1)] Future Scheduled 2020-07-30 TETANUS SHOT (ADULT) [facility] Test 08:53:16 [code = TETANUS SHOT of Medi cine (ADULT)] Future Scheduled 2020-07-30 Diabetic foot [facility] [employer] Test 08:53:16 examination of Medicine (regime/therapy) [code = 217608960] Future Scheduled 2020-07-30 ANNUAL DIABETIC [facility] Test 08:53:16 RETINOPATHY SCREENING of Med icine [code = ANNUAL DIABETIC RETINOPATHY SCREENING] Future Scheduled 2020-07-30 Hepatitis C screening [employer] Test 08:53:16 (procedure) [code = of Medic ine 731397910] Future Scheduled 2020-07-30 Human immunodeficiency [facility] Test 08:53:16 virus screening of Medicine (procedure) [code = 489006247] Future Scheduled 2020-07-30 ZOSTER VACCINE (1 of 2) [facility] Test 08:53:16 [code = ZOSTER VACCINE of Me dicine (1 of 2)] Future Scheduled 2020-07-30 MEDICARE AWV (Initial) [facility] Test 08:53:16 [code = MEDICARE AWV of Medi cine (Initial)] Future Scheduled 2020-07-30 FLU VACCINE > 6 MONTHS [facility] Test 08:53:16 [code = FLU VACCINE > 6 of M edicine MONTHS] Future Scheduled 2009-11-11 SHINGLES VACCINES ([address] [facility] Test 00:00:00 2) [code = SHINGLES Medical Center VACCINES (1 of 2)] Future Scheduled 2009-11-11 SHINGLES VACCINES ([address] [facility] Test 00:00:00 2) [code = SHINGLES Medical Center VACCINES (1 of 2)] Future Scheduled 2009-11-11 SHINGLES VACCINES ([address] [facility] Test 00:00:00 2) [code = SHINGLES Medical Center VACCINES (1 of 2)] Future Scheduled 2009-11-11 SHINGLES VACCINES ([address] [facility] Test 00:00:00 2) [code = SHINGLES Medical Center VACCINES (1 of 2)] Future Scheduled 1994-11-11 Lipid panel (procedure) [facility] Test 00:00:00 [code = 98282838] Medical Ce nter Future Scheduled 1994-11-11 Lipid panel (procedure) [facility] Test 00:00:00 [code = 16251475] Medical Ce nter Future Scheduled 1994-11-11 Lipid panel (procedure) [facility] Test 00:00:00 [code = 52169327] Medical Ce nter Future Scheduled 1994-11-11 Lipid panel (procedure) [facility] Test 00:00:00 [code = 53122069] Medical Ce nter Future Scheduled 1978-11-11 DTAP/TDAP/TD [facility]ACCINES [facility] Test 00:00:00 (1 - Tdap) [code = Medical C enter DTAP/TDAP/TD VACCINES (1 - Tdap)] Future Scheduled 1978-11-11 DTAP/TDAP/TD VACCINES [facility] Test 00:00:00 (1 - Tdap) [code = Medical C enter DTAP/TDAP/TD VACCINES (1 - Tdap)] Future Scheduled 1978-11-11 DTAP/TDAP/TD [facility]ACCINES [facility] Test 00:00:00 (1 - Tdap) [code = Medical C enter DTAP/TDAP/TD VACCINES (1 - Tdap)] Future Scheduled 1978-11-11 DTAP/TDAP/TD [facility]ACCINES [facility] Test 00:00:00 (1 - Tdap) [code = Medical C enter DTAP/TDAP/TD VACCINES (1 - Tdap)] Future Scheduled 1977-11-11 HEPATITIS C SCREENING [facility] Test 00:00:00 [code = HEPATITIS C Medical Center SCREENING] Future Scheduled 1977-11-11 HEPATITIS C [facility]CREENING [facility] Test 00:00:00 [code = HEPATITIS C Medical Center SCREENING] Future Scheduled 1977-11-11 HEPATITIS C [facility]CREENING [facility] Test 00:00:00 [code = HEPATITIS C Medical Center SCREENING] Future Scheduled 1977-11-11 HEPATITIS C [facility]CRE[facility]ING [facility] Test 00:00:00 [code = HEPATITIS C Medical Center SCREENING] Future Scheduled 1969-11-11 DIABETIC EYE EXAM [code [facility] Test 00:00:00 = DIABETIC EYE EXAM] Medical Center Future Scheduled 1969-11-[address] [facility] examination [facility] Center (regime/therapy) [code = 314427257] Future Scheduled 1969-11-11 Urine screening for [facility] Test 00:00:00 protein (procedure) Medical Center [code = 021737491] Future Scheduled 1969-11-11 DIABETIC EYE EXAM [code [facility] Test 00:00:00 = DIABETIC EYE EXAM] Medical Center Future Scheduled 1969-11-[address] [facility] Test 00:[facility]:00 examination Medical Center (regime/therapy) [code = 250065746] Future Scheduled 1969-11-11 Urine screening for [facility] Test 00:00:00 protein (procedure) Medical Center [code = 605234173] Future Scheduled 1969-11-11 DIABETIC EYE EXAM [code [facility] Test 00:00:00 = DIABETIC EYE EXAM] Medical Center Future Scheduled 1969-11-[address] [facility] Test 00:00:00 examination Medical Center (regime/therapy) [code = 913733829] Future Scheduled 1969-11-11 Urine screening for [facility] Test 00:00:00 protein (procedure) Medical Center [code = 457150562] Future Scheduled 1969-11-11 DIABETIC EYE EXAM [code [facility] Test 00:00:00 = DIABETIC EYE EXAM] Medical Center Future Scheduled 1969-11-[address] [facility] Test 00:00:00 examination Medical Center (regime/therapy) [code = 222992959] Future Scheduled 1969-11-11 Urine screening for [facility] Test 00:00:00 protein (procedure) Medical Center [code = 338876034] Future Scheduled 1965-11-[address] [facility] Test 00:00:00 0-64 YRS (1 - PCV) Medical C enter [code = PNEUMOCOCCAL VACCINE 0-64 YRS (1 - PCV)] Future Scheduled 1965-11-[address] [facility] Test 00:00:00 0-64 YRS (1 - PCV) Medical C enter [code = PNEUMOCOCCAL VACCINE 0-64 YRS (1 - PCV)] Future Scheduled 1965-11-[address] [facility] Test 00:00:00 0-64 YRS (1 - PCV) Medical C enter [code = PNEUMOCOCCAL VACCINE 0-64 YRS (1 - PCV)] Future Scheduled 1965-11-[address] [facility] Test 00:00:00 0-64 YRS (1 - PCV) Medical C enter [code = PNEUMOCOCCAL VACCINE 0-64 YRS (1 - PCV)] Future Scheduled 1960-05-11 COVID-19 VACCINE (#1) [facility] Test 00:00:00 [code = COVID-[address] VACCINE (#1)] Future Scheduled 1960-05-11 COVID-19 VACCINE (#1) [facility] Test 00:00:00 [code = COVID-[address] VACCINE (#1)] Future Scheduled 1960-05-11 COVID-19 VACCINE (#1) [facility] Test 00:00:00 [code = COVID-[address] VACCINE (#1)] Future Scheduled 1960-05-11 COVID-19 VACCINE (#1) [facility] Test 00:00:00 [code = COVID-[address] VACCINE (#1)] Future Scheduled 1959 CT Colonography (combo) [facility] Test 00:00:00 [code = CT [facility] ([facility])] Future Scheduled 1959 Screening for malignant [facility] Test 00:00:00 neoplasm of colon Medical Ce nter (procedure) [code = 221105667] Future Scheduled 1959 Screening for malignant [facility] Test 00:00:00 neoplasm of colon Medical Ce nter (procedure) [code = 388134925] Future Scheduled 1959 Screening for malignant [facility] Test 00:00:00 neoplasm of colon Medical Ce nter (procedure) [code = 415069091] Future Scheduled 1959 Screening for malignant [facility] Test 00:00:00 neoplasm of colon Medical Ce nter (procedure) [code = 727317908] Future Scheduled 1959 Sigmoidoscopy [code = [facility] Test 00:[facility] Sigmoidoscopy] Medical Cent[facility] r Future Scheduled 1959 CT Colonography (combo) [facility] Test 00:00:00 [code = CT [facility] ([facility])] Future Scheduled 1959 Screening for malignant [facility] Test 00:00:00 neoplasm of colon Medical Ce nter (procedure) [code = 634762214] Future Scheduled 1959 Screening for malignant [facility] Test 00:00:00 neoplasm of colon Medical Ce nter (procedure) [code = 550939655] Future Scheduled 1959 Screening for malignant [facility] Test 00:00:00 neoplasm of colon Medical Ce nter (procedure) [code = 492171760] Future Scheduled 1959 Screening for malignant [facility] Test 00:00:00 neoplasm of colon Medical Ce nter (procedure) [code = 599168347] Future Scheduled 1959 Sigmoidoscopy [code = [facility] Test 00:00:00 Sigmoidoscopy] Medical Cente r Future Scheduled 1959 CT Colonography (combo) [facility] Test 00:00:00 [code = CT [facility] ([facility])] Future Scheduled 1959 Screening for malignant [facility] Test 00:00:00 neoplasm of colon Medical Ce nter (procedure) [code = 284405011] Future Scheduled 1959 Screening for malignant [facility] Test 00:00:00 neoplasm of colon Medical Ce nter (procedure) [code = 914108176] Future Scheduled 1959 Screening for malignant [facility] Test 00:00:00 neoplasm of colon Medical Ce nter (procedure) [code = 362132993] Future Scheduled 1959 Screening for malignant [facility] Test 00:00:00 neoplasm of colon Medical Ce nter (procedure) [code = 327852030] Future Scheduled 1959 Sigmoidoscopy [code = [facility] Test 00:00:00 Sigmoidoscopy] Medical Cente r Future Scheduled 1959 CT Colonography (combo) [facility] Test 00:00:00 [code = CT Colonography [facility] (combo)] Future Scheduled 1959 Screening for malignant [facility] Test 00:00:00 neoplasm of colon Medical Ce nter (procedure) [code = 454337063] Future Scheduled 1959 Screening for malignant [facility] Test 00:00:00 neoplasm of colon Medical Ce nter (procedure) [code = 632245255] Future Scheduled 1959 Screening for malignant [facility] Test 00:00:00 neoplasm of colon Medical Ce nter (procedure) [code = 289193105] Future Scheduled 1959 Screening for malignant [facility] Test 00:00:00 neoplasm of colon Medical Ce nter (procedure) [code = 154002358] Future Scheduled 1959 Sigmoidoscopy [code = [facility] Test 00:00:00 Sigmoidoscopy] Medical Cente r Future Scheduled FLU VACCINE > 6 MONTHS [employer] Test [code = FLU VACCINE > 6 of M edicine MONTHS] Future Scheduled COLON CANCER SCREENING: [facility] Test COLONOSCOPY [code = of Medic ine COLON CANCER SCREENING: COLONOSCOPY] Future Scheduled TETANUS SHOT (ADULT) [facility] Test [code = TETANUS SHOT of Medi cine (ADULT)] Future Scheduled Diabetic foot [facility] Test examination of Medicine (regime/therapy) [code = 244757972] Future Scheduled ANNUAL DIABETIC [facility] Test RETINOPATHY SCREENING [...] > 6 of edicine MONTHS] Future Scheduled [place] DEBRIDEMENT OPEN Ordered: [employer] Test WOUND 20 SQ CM< [code = 07/24/2019 of [facility] [address]] Future Scheduled COLON CANCER SCREENING: [employer] Test COLONOSCOPY [code = of Medic ine COLON CANCER SCREENING: COLONOSCOPY] Future Scheduled TETANUS SHOT (ADULT) [facility] [employer] Test [code = TETANUS SHOT of Medi cine (ADULT)] Future Scheduled Diabetic foot [facility] Test examination of Medicine (regime/therapy) [code = 014990736] Future Scheduled ANNUAL DIABETIC [facility] Test RETINOPATHY SCREENING [...] UP of Med icine PLAN] Future Scheduled [place] DEBRIDEMENT OPEN Ordered: [employer] Test WOUND 20 SQ CM< [code = 08/07/2019 of [facility] 236[address]] Future Scheduled COLON CANCER SCREENING: [facility] Test COLONOSCOPY [code = of Medic ine COLON CANCER SCREENING: COLONOSCOPY] Future Scheduled TETANUS SHOT (ADULT) [facility] [employer] Test [code = TETANUS SHOT of Medi cine (ADULT)] Future Scheduled Diabetic foot [facility] Col lege Test examination of Medicine (regime/therapy) [code = 683236696] Future Scheduled ANNUAL DIABETIC [facility] C ollege Test RETINOPATHY SCREENING [...] UP of Med icine PLAN] Future Scheduled [place] DEBRIDEMENT OPEN Ordered: [employer] Test WOUND 20 SQ CM< [code = 08/22/2019 of edicine 34536] Future Scheduled [place] POST-OP FOLLOW-UP Ordered: Laurel darnell [employer] Test VISIT [code = 65256] 08/22/2019 of Medi cine Future Scheduled SUTURE REMOVAL KIT Ordered: [employer] Test [code = NOCPT] 09/01/2019 of Medicine Future Scheduled COLON CANCER SCREENING: [facility] College Test COLONOSCOPY [code = of Medic ine COLON CANCER SCREENING: COLONOSCOPY] Future Scheduled TETANUS SHOT (ADULT) Laurel darnell College Test [code = TETANUS SHOT of Medi cine (ADULT)] Future Scheduled Diabetic foot Ton Col lege Test examination of Medicine (regime/therapy) [code = 645085535] Future Scheduled ANNUAL DIABETIC [facility] C ollege Test RETINOPATHY SCREENING [...] icine PLAN] Future Scheduled COLON CANCER SCREENING: [facility] College Test COLONOSCOPY [code = of Medic ine COLON CANCER SCREENING: COLONOSCOPY] Future Scheduled TETANUS SHOT (ADULT) [employer]urel darnell [employer] Test [code = TETANUS SHOT of Medi cine (ADULT)] Future Scheduled Diabetic foot [facility] Col lege Test examination of Medicine (regime/therapy) [code = 804679998] Future Scheduled ANNUAL DIABETIC Ton C ollege [...] icine PLAN] Future Scheduled COLON CANCER SCREENING: [facility] College Test COLONOSCOPY [code = of Medic ine COLON CANCER SCREENING: COLONOSCOPY] Future Scheduled TETANUS SHOT (ADULT) [employer]urel darnell [employer] Test [code = TETANUS SHOT of Medi cine (ADULT)] Future Scheduled Diabetic foot Ton Col lege Test examination of Medicine (regime/therapy) [code = 967025427] Future Scheduled ANNUAL DIABETIC [facility] C ollege Test RETINOPATHY SCREENING [...] UP of Med icine PLAN] Future Scheduled [place] DEBRIDEMENT, SKIN, Ordered: [employer] Test SUB-Q TISSUE,=<20 SQ CM 10/04/2019 of M edicine [code = 32948] Future Scheduled COLON CANCER SCREENING: Ton [employer] Test COLONOSCOPY [code = of Medic ine COLON CANCER SCREENING: COLONOSCOPY] Future Scheduled TETANUS SHOT (ADULT) Laurel darnell [employer] Test [code = TETANUS SHOT of Medi cine (ADULT)] Future Scheduled Diabetic foot Ton [employer]ge Test examination of Medicine (regime/therapy) [code = 052789506] Future Scheduled ANNUAL DIABETIC Ton C ollege [...] UP of Med icine PLAN] Future Scheduled [place] POST-OP FOLLOW-UP Ordered: Laurel darnell [employer] Test VISIT [code = 53657] 12/06/2019 of Medi cine Future Scheduled COLON CANCER SCREENING: [facility] College Test COLONOSCOPY [code = of Medic ine COLON CANCER SCREENING: COLONOSCOPY] Future Scheduled TETANUS SHOT (ADULT) [employer]urel darnell [employer] Test [code = TETANUS SHOT of Medi cine (ADULT)] Future Scheduled Diabetic foot [facility] Col lege Test examination of Medicine (regime/therapy) [code = 062937377] Future Scheduled ANNUAL DIABETIC Ton C [employer]lege Test RETINOPATHY SCREENING of Med icine [code = ANNUAL DIABETIC RETINOPATHY SCREENING] Future Scheduled HEPATITIS C SCREENING [employer] Test [code = HEPATITIS C of Medic ine SCREENING] Future Scheduled HIV SCREENING [code = [employer] HIV SCREENING] of Medicine Future Scheduled ZOSTER VACCINE (1 of 2) [facility] College Test [code = ZOSTER [...] icine PLAN] Future Scheduled COLON CANCER SCREENING: [facility] College Test COLONOSCOPY [code = of Medic ine COLON CANCER SCREENING: COLONOSCOPY] Future Scheduled TETANUS SHOT (ADULT) [employer] darnell [employer] Test [code = TETANUS SHOT of Medi cine (ADULT)] Future Scheduled Diabetic foot Ton [employer]ge Test examination of Medicine (regime/therapy) [code = 490593546] Future Scheduled ANNUAL DIABETIC Ton C ollege [...] icine PLAN] Future Scheduled COLON CANCER SCREENING: [facility] College Test COLONOSCOPY [code = of Medic ine COLON CANCER SCREENING: COLONOSCOPY] Future Scheduled TETANUS SHOT (ADULT) [employer]urel darnell [employer] Test [code = TETANUS SHOT of Medi cine (ADULT)] Future Scheduled Diabetic foot Ton Col [employer]ge Test examination of Medicine (regime/therapy) [code = 321275074] Future Scheduled ANNUAL DIABETIC [facility] C ollege Test RETINOPATHY SCREENING [...] icine PLAN] Future Scheduled COLON CANCER SCREENING: [facility] College Test COLONOSCOPY [code = of Medic ine COLON CANCER SCREENING: COLONOSCOPY] Future Scheduled COVID-19 Vaccine [facility] College Test Evaluation [code = of Medici ne COVID-19 Vaccine Evaluation] Future Scheduled TETANUS SHOT (ADULT) [employer]urel darnell [employer] Test [code = TETANUS SHOT of Medi cine (ADULT)] Future Scheduled Diabetic foot Ton [employer]ge Test examination of Medicine (regime/therapy) [code = 271017390] Future Scheduled ANNUAL DIABETIC Ton C [employer]lege Test RETINOPATHY SCREENING of Med icine [code = ANNUAL DIABETIC RETINOPATHY SCREENING] Future Scheduled HEPATITIS C SCREENING [employer] Test [code = HEPATITIS C of Medic ine SCREENING] Future Scheduled HIV SCREENING [code = [employer] HIV SCREENING] of Medicine Future Scheduled ZOSTER VACCINE (1 of 2) [facility] College Test [code = ZOSTER [...] icine PLAN] Future Scheduled COLON CANCER SCREENING: [facility] College Test COLONOSCOPY [code = of Medic ine COLON CANCER SCREENING: COLONOSCOPY] Future Scheduled COVID-19 Vaccine [facility] [employer] Test Evaluation [code = of Medici ne COVID-19 Vaccine Evaluation] Future Scheduled TETANUS SHOT (ADULT) [employer]urel darnell [employer] Test [code = TETANUS SHOT of Medi cine (ADULT)] Future Scheduled Diabetic foot [facility] Col lege Test examination of Medicine (regime/therapy) [code = 069287495] Future Scheduled ANNUAL DIABETIC Ton C [employer]lege Test RETINOPATHY SCREENING of Med icine [code = ANNUAL DIABETIC RETINOPATHY SCREENING] Future Scheduled HEPATITIS C SCREENING [employer] Test [code = HEPATITIS C of Medic ine SCREENING] Future Scheduled HIV SCREENING [code = [employer] HIV SCREENING] of Medicine Future Scheduled ZOSTER VACCINE (1 of 2) [facility] College Test [code = ZOSTER [...] icine PLAN] Future Scheduled COLON CANCER SCREENING: [facility] College Test COLONOSCOPY [code = of Medic ine COLON CANCER SCREENING: COLONOSCOPY] Future Scheduled COVID-19 Vaccine [facility] College Test Evaluation [code = of Medici ne COVID-19 Vaccine Evaluation] Future Scheduled TETANUS SHOT (ADULT) Laurel darnell [employer] Test [code = TETANUS SHOT of Medi cine (ADULT)] Future Scheduled Diabetic foot Ton [employer]ge Test examination of Medicine (regime/therapy) [code = 552298909] Future Scheduled ANNUAL DIABETIC [facility] C ollege Test RETINOPATHY SCREENING [...] UP of Med icine PLAN] Future Scheduled [place] DEBRIDEMENT, SKIN, Ordered: [employer] Test SUB-Q TISSUE,=<20 SQ CM 05/25/2020 of M edicine [code = 70414] Future Scheduled Screening for malignant Ton [employer] Test neoplasm of colon of Medicin e (procedure) [code = 939971280] Future Scheduled TETANUS SHOT (ADULT) Laurel darnell [employer] Test [code = TETANUS SHOT of Medi cine (ADULT)] Future Scheduled COVID-19 Vaccine (1) [employer]urel darnell [employer] Test [code = COVID-19 of Medicine Vaccine (1)] Future Scheduled Diabetic foot Ton [employer] Test examination of Medicine (regime/therapy) [code = 527091587] Future Scheduled ANNUAL DIABETIC Ton C [employer]lege Test RETINOPATHY SCREENING of Med icine [code = ANNUAL DIABETIC RETINOPATHY SCREENING] Future Scheduled Hepatitis C screening [employer] Test (procedure) [code = of Medic ine 248004744] Future Scheduled [facility] Test virus screening of Medicine (procedure) [code = 297961381] Future Scheduled ZOSTER VACCINE (1 of 2) [facility] College Test [code = ZOSTER VACCINE of Nv dicine (1 of 2)] Future Scheduled MEDICARE [...] colon of Medicin e (procedure) [code = 765025979] Future Scheduled TETANUS SHOT (ADULT) [employer]urel darnell [employer] Test [code = TETANUS SHOT of Medi cine (ADULT)] Future Scheduled COVID-19 Vaccine (1) [employer]urel darnell [employer] Test [code = COVID-19 of Medicine Vaccine (1)] Future Scheduled Diabetic foot [facility] Col lege Test examination of Medicine (regime/therapy) [code = 696486873] Future Scheduled ANNUAL DIABETIC Ton C ollege Test RETINOPATHY SCREENING of Med icine [code = ANNUAL DIABETIC RETINOPATHY SCREENING] Future Scheduled Hepatitis C screening [employer] Test (procedure) [code = of Medic ine 371247627] Future Scheduled Human immunodeficiency B [employer] Test virus screening of Medicine (procedure) [code = 790249836] Future Scheduled ZOSTER VACCINE (1 of 2) [...] colon of Medicin e (procedure) [code = 358962752] Future Scheduled TETANUS SHOT (ADULT) Laurel darnell [employer] Test [code = TETANUS SHOT of Medi cine (ADULT)] Future Scheduled COVID-19 Vaccine (1) Laurel darnell [employer] Test [code = COVID-19 of Medicine Vaccine (1)] Future Scheduled Diabetic foot Ton Col [employer]ge Test examination of Medicine (regime/therapy) [code = 314640109] Future Scheduled ANNUAL DIABETIC Ton C ollege Test RETINOPATHY SCREENING of Med icine [code = ANNUAL DIABETIC RETINOPATHY SCREENING] Future Scheduled Hepatitis C screening [employer] Test (procedure) [code = of Medic ine 235318222] Future Scheduled Human immunodeficiency B [employer] Test virus screening of Medicine (procedure) [code = 036457466] Future Scheduled ZOSTER VACCINE (1 of 2) [...] SCREENING: COLONOSCOPY] Future Scheduled TETANUS SHOT (ADULT) Laurel darnell [employer] Test [code = TETANUS SHOT of Medi cine (ADULT)] Future Scheduled Diabetic foot [facility] Col lege Test examination of Medicine (regime/therapy) [code = 827297435] Future Scheduled ANNUAL DIABETIC [facility] C ollege Test RETINOPATHY SCREENING of Med icine [code = ANNUAL DIABETIC RETINOPATHY SCREENING] Future Scheduled BMI FOLLOW UP PLAN [place] [...] Department ID 2021-04-02 Outpatient READMISSIO ENCCLR ENCCLR [id number] ENCCLR 11:32:21 N 2021-04-02 Outpatient 3 [facility] ENCPL IBAN 2020 [facility] 11:23:39 amanda 0120 [facility] [place] 2021-04-02 Outpatient 3 [facility] ENCPL IBAN 2020 [facility] 11:23:15 amanda 0119 [facility] [place] 2021-04-02 Outpatient 3 [id number] ENCPL REF [facility] 11:20:27 [facility] [place] 2021-04-02 Outpatient 3 [id number] ENCPL REF [id number] [facility] 10:40:10 0925 [facility] [place] 2021-04-02 Outpatient 3 [id number] ENCPL REF [id number] [facility] 10:37:41 0919 [facility] [place] 2021-04-02 Outpatient 3 [id number] ENCPL REF [id number] [facility] 10:37:29 0918 [facility] [place] 2021-04-02 Outpatient 3 [id number] ENCSL REF [id number] [facility] 10:29:18 64716 [facility] [place] 2021-04-02 Outpatient NEW ENCCLR ENCCLR [id number] EN CCLR 09:45:29 ADMISSION 2021-04-02 Outpatient 3 [facility] ENCPL NACHO [id number] [facility] 09:40:19 amanda, 0422 [facility] [place] 2021-04-02 Outpatient 3 [id number] ENCPL REF [id number] [facility] 09:39:18 0420 [facility] [place] 2021-04-02 Outpatient 3 [id number] ENCPL REF [id number] [facility] 09:39:08 0419 [facility] [place] 2021-04-01 Outpatient Duval, STLMLC STLMLC [id number] Common 12:55:18 Rose 90377 [facility] 2020-12-13 Outpatient ROSS, [facility] Surgery [id number] [facility] 08:44:41 STAR 2020-12-12 Inpatient ROSS, [facility] Surgery [id number] [facility] 22:13:11 STAR 2020-12-10 Outpatient PEDRO LUIS, [facility] Surgery [id number] [facility] 02:17:18 STAR 2020-12-09 Outpatient PEDRO LUIS, [facility] Surgery [id number] [facility] 22:29:35 [place] 2020-03-27 Inpatient 3 [facility] ENCPL IBAN [id number] [facility] 12:12:00 amanda, 0121 [facility] [place] 2019-12-05 Inpatient UR NEISHA [facility] General Med [id number] [facility] 20:39:00 MARIO 2019-11-05 Inpatient ER RANDY [facility] Podiatry [id number] [facility] 20:36:00 SARA 2019-06-14 Inpatient SLEH [facility] [id number] [facility] 08:29:14 [id number] 2022-04-06 2022-04-06 Outpatient RYAN CLOUD [facility] [id number] [facility] 13:05:07 16:12:29 STAR doherty of Medicin e 2021-12-08 2021-12-08 Office RYAN CLOUD 1.2.840.114 [id number] [facility] 14:23:22 14:23:22 Visit STAR AMBULATOR 350.1.13.21 College Y 0.2.7.2.686 of [id number] Medi greyson 825 e 2021-12-08 2021-12-08 Office RYAN CASTAÑEDA 1.2.840.114 [id number] [facility] 10:46:19 10:46:19 Visit CLARK AMBULATOR 350.1.13.21 College Y 0.2.7.2.686 of [id number] [facility] greyson 825 e 2021-12-08 2021-12-[address] [facility] [id number] [facility] 10:44:28 10:44:28 Amira bessy of Medicin e 2021-10-20 2021-10-20 Transition CHRIS Mcmahan 1.2.840.114 [id number] [facility] 00:00:00 00:00:00 of Care Olayinka Vikas CARDOZA 350.1.13.10 ity [facility] 4.2.7.2.686 [facility] [id number] [facility] [address] Branch 2021-10-19 2021-10-19 Emergency X SILAS [facility] [id number] Univers 15:23:00 17:58:00 LYLE ityair [facility] 2021-10-19 2021-10-19 Emergency Parkernica Oralia J [facility] 1.2.840 .114 [id number] Univers 15:23:00 17:58:00 Lyle Canales 350.1.13.10 ity of LIBERTAD 4.2.7.2.686 [facility] [id number] [facility] 084 Branch 2021-09-08 2021-09-15 Office RYAN CLOUD 1.2.840.114 [id number] [facility] 16:02:04 15:59:59 Visit STAR AMBULATOR 350.1.13.21 College Y 0.2.7.2.686 of [id number] [facility] greyson 825 e 2021-08-04 2021-08-04 Office RYAN Cloud 1.2.840.114 [id number] [facility] 16:00:00 16:30:00 Visit Star Bean AMBULATOR 350.1.13.21 College Y 0.2.7.2.686 of [id number] [facility] greyson 825 e 2021-08-04 2021-08-04 Office RYAN CASTAÑEDA 1.2.840.114 [id number] [facility] 15:28:48 15:28:48 Visit CLARK AMBULATOR 350.1.13.21 College Y 0.2.7.2.686 of [id number] [facility] greyson 825 e 2021-08-04 2021-08-04 Outpatient BCM [facility] [id number] [facility] 15:27:47 15:27:47 Colleg e of Medicin e 2021-07-21 2021-07-21 Office RYAN CASTAÑEDA 1.2.840.114 [id number] [facility] 09:27:01 11:52:25 Visit CLARK AMBULATOR 350.1.13.21 College Y 0.2.7.2.686 of [id number] [facility] greyson 825 e 2021-07-21 2021-07-21 Outpatient BCM [facility] [id number] [facility] 09:26:12 10:29:34 Colleg e of Medicin e 2021-07-01 2021-07-04 [facility] Beka Qureshi 1.2.840.1 [id number] Methodi 15:46:00 20:42:00 [facility] 3.430.2.7 Hospit a .3.936995 l .8 2021-05-26 2021-05-27 Office RYAN Cloud 1.2.840.114 [id number] [facility] 15:00:00 14:49:48 Visit Star Bean AMBULATOR 350.1.13.21 College Y 0.2.7.2.686 of [id number] [facility] greyson 825 e 2021-05-05 2021-05-05 Office RYAN Cloud 1.2.840.114 [id number] [facility] 15:00:00 16:45:58 Visit Star A AMBULATOR 350.1.13.21 College Y 0.2.7.2.686 of [id number] [facility] greyson 825 e 2021-04-07 2021-04-07 Office RYAN CLOUD 1.2.840.114 [id number] [facility] 15:18:45 16:14:26 Visit STAR AMBULATOR 350.1.13.21 College Y 0.2.7.2.686 of [id number] [facility] greyson 825 e 2021-02-26 2021-03-16 [facility] Sara Doll [facility] [id number] 21:33:00 17:48:00 [facility] er 2021-02-26 2021-03-16 Inpatient ER DAV GUZMAN [facility] Surgery [id number] [facility] 21:33:00 17:48:00 2021-03-12 2021-03-12 Surgery Pedro Luis [facility] [id number] 10:30:00 16:05:00 [facility] 2021-03-12 2021-03-12 Anesthesia Petr Grewal Tali [facility] [id number] 10:34:00 12:57:00 Event Monica [facility] 2021-03-05 2021-03-05 Surgery Shashi [facility] [id number] 10:02:00 13:49:00 [facility] 2021-03-02 2021-03-02 Surgery Pedro Luis [facility] [id number] 14:00[facility]00 16:07[facility] 2021-03-02 2021-03-02 Anesthesia Amanda Kenny [facility] [id number] [facility] 14:27:00 15:55:00 Event Evelyn Del Valle [facility] 2021-02-26 2021-02-26 Outpatient [facility] [id number] [facility] 21:33:00 23:59:00 Patricio e 2021-02-03 2021-02-03 Office RYAN CLOUD 1.2.840.114 [id number] [facility] 13:14:52 16:33:05 Visit STAR AMBULATOR 350.1.13.21 College Y 0.2.7.2.686 of [id number] [facility] 825 e 2021-01-20 2021-01-20 Office RYAN Castañeda 1.2.840.114 [id number] [facility] 10:30:00 11:39:37 Visit Clark Wilson AMBULATOR 350.1.13.21 College Y 0.2.7.2.686 of [id number] [facility] greyson 825 e 2021-01-20 2021-01-20 Outpatient [facility] [id number] [facility] 09:42:48 11:20:43 Colleg e of Medicin e 2020-12-23 2020-12-23 Office RYAN Cloud 1.2.840.114 [id number] [facility] 15:16:17 16:42:07 Visit Star A AMBULATOR 350.1.13.21 College Y 0.2.7.2.686 of [id number] [facility] greyson 825 e 2020-11-25 2020-11-25 Office RYAN Cloud 1.2.840.114 [id number] [facility] 14:15:01 16:08:45 Visit Star A AMBULATOR 350.1.13.21 College Y 0.2.7.2.686 of [id number] [facility] greyson 825 e 2020-10-28 2020-10-29 Office RYAN Cloud 1.2.840.114 [id number] [facility] 16:05:09 16:10:43 Visit Star A AMBULATOR 350.1.13.21 College Y 0.2.7.2.686 of [id number] [facility] greyson 825 e 2020-10-14 2020-10-15 Office RYAN Cloud 1.2.840.114 [id number] [facility] 15:36:26 15:08:28 Visit Star A AMBULATOR 350.1.13.21 College Y 0.2.7.2.686 of [id number] [facility] greyson 825 e 2020-10-14 2020-10-14 Outpatient RYAN CASTAÑEDA [facility] [id number] [facility] 14:06:22 16:51:07 CLARK Collier e of Medicin e 2020-09-16 2020-09-16 Outpatient [facility] [id number] [facility] 20:09:00 23:59:00 Colleg e of Medicin e 2020-09-16 2020-09-16 Emergency ER [facility] Emergency [id number] [facility] 18:17:00 18:17:00 2020-08-19 2020-08-19 Office RYAN Cloud 1.2.840.114 [id number] [facility] 14:57:45 16:54:41 Visit Star A AMBULATOR 350.1.13.21 College Y 0.2.7.2.686 of [id number] [facility] 825 e 2020-08-05 2020-08-05 Office RYAN Cloud 1.2.840.114 [id number] [facility] 13:00:06 14:46:27 Visit Star A AMBULATOR 350.1.13.21 College Y 0.2.7.2.686 of [id number] [facility] 825 e 2020-07-22 2020-07-22 Office RYAN Cloud 1.2.840.114 [id number] [facility] 13:04:56 14:30:33 Visit Star A AMBULATOR 350.1.13.21 College Y 0.2.7.2.686 of [id number] [facility] 825 e 2020-07-03 2020-07-03 OFFICE STLMLC STLMLC [id number] Co mmon 00:00:00 00:00:00 VISIT EST Spir it PT LEVEL 3 - [facility] 2020-06-26 2020-06-26 OFFICE STLMLC STLMLC [id number] Co mmon 00:00:00 00:00:00 VISIT NEW Spir it PT LEVEL 3 - [facility] 2020-06-24 2020-06-24 Office RYAN Cloud 1.2.840.114 [id number] [facility] 15:12:49 15:42:49 Visit Star A AMBULATOR 350.1.13.21 College Y 0.2.7.2.686 of [id number] [facility] 825 e 2020-05-27 2020-05-27 Outpatient EL [facility] [id number] [facility] 00:00:00 00:00:00 2020-05-27 2020-05-27 Outpatient EL [facility] [id number] [facility] 00:00:00 00:00:00 2020-05-27 2020-05-27 Outpatient EL [facility] [id number] [facility] 00:00:00 00:00:00 2020-05-26 2020-05-26 Outpatient [facility] [id number] [facility] 00:00:00 00:00:00 2020-05-20 2020-05-22 Office RYAN Cloud 1.2.840.114 [id number] 15:57:14 16:30:11 Visit Star A AMBULATOR 350.1.13.21 Y 0.2.7.2.686 [id number] [facility] 2020-05-20 2020-05-22 Office RYAN Cloud 1.2.840.114 [id number] [facility] 15:57:14 16:30:11 Visit Star A AMBULATOR 350.1.13.21 College Y 0.2.7.2.686 of [id number] [address] 2020-05-13 2020-05-13 Office RYAN Cloud 1.2.840.114 [id number] 00 16:12:46 17:00:07 Visit Star A AMBULATOR 350.1.13.21 Y 0.2.7.2.686 [id number] [facility] 2020-05-13 2020-05-13 Office RYAN Cloud 1.2.840.[id number] [place] [address] 16:12:46 17:00:07 Visit Star A AMBULATOR 350.1.13.21 College Y 0.2.7.2.686 of [id number] [place] 072555 e 2020-04-29 2020-04-29 Office RYAN Cloud 1.2.840.114 [id number] 15:18:12 16:41:00 Visit Star A AMBULATOR 350.1.13.21 Y 0.2.7.2.686 [id number] [facility] 2020-04-29 2020-04-29 Office RYAN Colud 1.2.840.114 [id number] [facility] 15:18:12 16:41:00 Visit Star A AMBULATOR 350.1.13.21 College Y 0.2.7.2.686 of [id number] [facility] 825 e 2020-04-16 2020-04-16 Outpatient Natalio [facility] [id number] [facility] 17:21:00 17:21:00 Oral, 41 [facility] 2020-04-11 2020-04-11 Emergency [place], [facility] [id number] [place] [address] 00:00:00 00:00:[address] HAKEEM [address] 2020-04-08 2020-04-08 Office RYAN Cloud 1.2.840.114 [id number] 15:02:21 16:42:00 Visit Star A AMBULATOR 350.1.13.21 Y 0.2.7.2.686 [id number] 825 2020-04-08 2020-04-08 Office RYAN Cloud 1.2.840.114 [id number] 51 [facility] 15:02:21 16:42:00 Visit Star A AMBULATOR 350.1.13.21 College Y 0.2.7.2.686 of [id number] [facility] 825 e 2020-04-07 2020-04-07 Outpatient Princess [facility] [id number] [facility] 16:16:00 16:16:00 John 08 [facility] 2020-03-11 2020-03-11 [facility] [id number] [facility] 18:57:00 18:57:00 SARA 2020-03-11 2020-03-11 Office RYAN Cloud 1.2.840.114 [id number] 14:49:58 16:51:58 Visit Star A AMBULATOR 350.1.13.21 Y 0.2.7.2.686 [id number] [facility] 2020-03-11 2020-03-11 Office RYAN Cloud 1.2.840.114 [id number] [facility] 14:49:58 16:51:58 Visit Star A AMBULATOR 350.1.13.21 College Y 0.2.7.2.686 of [id number] [facility] 825 e 2020-01-06 2020-01-06 Emergency ER [facility] Emergency [id number] [facility] 16:00:00 16:00:00 2020-01-01 2020-01-01 Office RYAN [facility] [id number] 16:15:05 16:45:39 Visit Star A AMBULATOR [id number] Y [id number] [id number] 2020-01-01 2020-01-01 Office RYAN [employer] [id number] [place] [address] 16:15:05 16:45:39 Visit Star A AMBULATOR [id number] College Y [id number] of [id number] [facility] [facility] 825 e 2020-01-01 2020-01-01 Office RYAN Castañeda 1.2.840.114 [id number] 15:18:00 16:17:05 Visit Clark Wilson AMBULATOR 350.1.13.21 Y 0.2.7.2.686 [id number] [facility] 2020-01-01 2020-01-01 Office RYAN Castañeda 1.2.840.[id number] [place] [address] 15:18:00 16:17:05 Visit Clark Wilson AMBULATOR 350.1.13.21 College Y 0.2.7.2.686 of [id number] [facility] 825 e 2019-12-05 2019-12-05 Office RYAN Cloud 1.2.840.114 [id number] 13:43:23 16:06:29 Visit Star Bean AMBULATOR 350.1.13.21 Y 0.2.7.2.686 [id number] [facility] 2019-12-05 2019-12-05 Office Pedro Luis BCM 1.2.840.[id number] [place] [address] 13:43:23 16:06:29 Visit Star A AMBULATOR 350.1.13.21 College Y 0.2.7.2.686 of [id number] [facility] 825 e 2019-07-14 2019-11-10 Outpatient RECERTIFIC NATALIO ENCCLR ENCCLR [id number] ENCCLR 00:00:00 00:00:00 CHIOMA SEARS 2019-10-16 2019-10-16 Outpatient SLEH SLEH [id number] [facility]H 00:00:00 00:00:00 2019-10-12 2019-10-12 Outpatient EL SLEH SLEH [id number] [facility]H 00:00:00 00:00:00 2019-10-02 2019-10-02 Office Pedro Luis, RYAN 1.2.840.114 [id number] 14:21:54 16:08:48 Visit Star A AMBULATOR 350.1.13.21 Y 0.2.7.2.686 [id number] 825 2019-10-02 2019-10-02 Office Pedro Luis, BCLaisha 1.2.840.[id number] [place] [address] 14:21:54 16:08:48 Visit Star A AMBULATOR 350.1.13.21 College Y 0.2.7.2.686 of [id number] [facility] 825 e 2019-09-12 2019-09-12 Outpatient SLE SLE [id number] SLE 00:00:00 00:00:00 2019-09-10 2019-09-10 Outpatient [facility] SLE [id number] SLE 00:00:00 00:00:00 2019-09-04 2019-09-04 Office Pedro Luis, SIRISHALaisha 1.2.840.114 [id number] 14:17:20 16:48:51 Visit Star A AMBULATOR 350.1.13.21 Y 0.2.7.2.686 [id number] 2019-09-04 2019-09-04 Office RYAN Cloud 1.2.840.[id number] [place] [address] 14:17:20 16:48:51 Visit Star A AMBULATOR 350.1.13.21 College Y 0.2.7.2.686 of [id number] [facility] 825 e 2019-09-04 2019-09-04 Office Shashi, BCLaisha 1.2.840.114 [id number] 14:17:07 16:48:39 Visit Clark Wilson AMBULATOR 350.1.13.21 Y 0.2.7.2.686 [id number] 825 2019-09-04 2019-09-04 Office Castañeda, BCM 1.2.840.114 [id number] 34 [facility] 14:17:07 16:48:39 Visit Clark L AMBULATOR 350.1.13.21 College Y 0.2.7.2.686 of [id number] [facility] 825 e 2019-08-21 2019-08-21 Office RYAN Cloud 1.2.840.114 [id number] 16:46:14 16:46:14 Visit Star A AMBULATOR 350.1.13.21 Y 0.2.7.2.686 [id number] [facility] 2019-08-21 2019-08-21 Office RYAN Cloud 1.2.840.114 [id number] 47 [facility] 16:46:14 16:46:14 Visit Star A AMBULATOR 350.1.13.21 College Y 0.2.7.2.686 of [id number] [facility] 825 e 2019-08-07 2019-08-07 Office RYAN Cloud 1.2.840.114 [id number] 13:10:09 16:34:44 Visit Star A AMBULATOR 350.1.13.21 Y 0.2.7.2.686 [id number] [facility] 2019-08-07 2019-08-07 Office Pedro Luis SIRISHALaisha 1.2.840.[id number] [place] [address] 13:10:09 16:34:44 Visit Star A AMBULATOR 350.1.13.21 College Y 0.2.7.2.686 of [id number] [place] [id number] e 2019-07-24 2019-07-24 Office Pedro Luis SIRISHALaisha 1.2.840.114 [id number] 13:35:06 14:05:03 Visit Star A AMBULATOR 350.1.13.21 Y 0.2.7.2.686 [id number] [facility] 2019-07-24 2019-07-24 Office Pedro Luis SIRISHALaisha 1.2.840.114 [id number] 83 [facility] 13:35:06 14:05:03 Visit Star A AMBULATOR 350.1.13.21 College Y 0.2.7.2.686 of [id number] [facility] 825 e 2019-07-17 2019-07-17 Office SIRISHA CastañedaLaisha 1.2.840.114 [id number] 11:22:05 16:23:11 Visit Clark L AMBULATOR 350.1.13.21 Y 0.2.7.2.686 [id number] [facility] 2019-07-17 2019-07-17 Office RYAN Castañeda 1.2.840.114 [id number] 31 [facility] 11:22:05 16:23:11 Visit Clark Wilson AMBULATOR 350.1.13.21 College Y 0.2.7.2.686 of [id number] [facility] 825 e 2019-07-14 2019-07-14 Outpatient RECERTIFIC NATALIO ENCCLR ENCCLR [id number] ENCCLR 00:00:00 00:00:00 YAN CHIOMA MIXON 2019-07-10 2019-07-10 Office RYAN Cloud 1.2.840.114 [id number] 15:58:34 16:52:46 Visit Star Bean AMBULATOR 350.1.13.21 Y 0.2.7.2.686 [id number] [facility] 2019-07-10 2019-07-10 Office RYAN Cloud 1.2.840.114 [id number] 61 [facility] 15:58:34 16:52:46 Visit Star Bean AMBULATOR 350.1.13.21 College Y 0.2.7.2.686 of [id number] [facility] 825 e 2019-05-10 2019-05-10 Outpatient [place], [facility] [id number] [place] 00:00:00 00:00:00 WILMER [address] 2019-05-10 2019-05-10 Outpatient [place], [facility] [id number] [place] 00:00:00 00:00:00 WILMER [address] 2019-05-09 2019-05-09 [id number] [place] 00:00:00 00:00:00 WILMER [address] 2019-05-08 2019-05-08 Outpatient [place], [facility] [id number] [place] 00:00:00 00:00:00 WILMER [address] 2018-09-08 2018-09-08 Outpatient ANANDA [facility] [id number] [place] 00:00:00 00:00:00 , ABRAHAM [address] Results Test Description Test Time Test Comments Results Result Comments Source COMP. METABOLIC PANEL (73976) 2021-10-19 22:19:35 Test Item Value Reference Range Interpretation Comme nts NA (test code = 2284898822) 137 mmol/L 135-145 K (test code = 2661545541) 4.3 mmol/L 3.5-5 CL (test code = 6209919946) 97 mmol/L 98-108 L CO2 TOTAL (test code = 3595024385) 26 mmol/L 23-31 AGAP (test code = 9330648211) 2-16 BUN (test code = 4119298108) 43 mg/dL 7-23 H GLUCOSE (test code = 9000682224) 159 mg/dL 70-110 H CREATININE (test code = 7.81 mg/dL 0.6-1.25 H 1164718553) TOTAL BILI (test code = 0.6 mg/dL 0.1-1.7 6724321946) CALCIUM (test code = 0280639395) 7.8 mg/dL 8.6-10.6 L T PROTEIN (test code = 4047985878) 7.8 g/dL 6.3-8.2 ALBUMIN (test code = 7222288125) 4.3 g/dL 3.5-5 ALK PHOS (test code = 3260273280) 97 U/L 34-122 ALTv (test code = 1742-6) 24 U/L 5-50 AST(SGOT) (test code = 8190402672) 34 U/L 13-40 eGFR (test code = 7101347918) mL/min/1.73m2 MITCHELL (test code = MITCHELL) Association [...] tests). Lab Interpretation (test code = Abnormal 05948-0) [id number] 21:18:48 Test Item Value Reference Interpretation Comments Range TROPONIN I (test 0.047 ng/mL See_Comment H [Automated code = 9788457654) message] The system which generated this result [...] biotin. Lab Interpretation Abnormal (test code = 52012-9) [facility] WITH [id number] 21:01:25 Test Item Value Reference Range Interpretation Comments WBC (test code = See_Comment [Automated message] 6690-2) The system [employer] generated this result transmitted ref erence range: 4.20 - 1 0.70 10*3/?L. The re ference range was not u sed to interpret this result as normal/abnor mal. RBC (test code = See_Comment [Automated message] 789-8) The system [employer] generated this result transmitted ref erence range: [...] RDW-SD (test code 50.6 fL 38.5-51.6 = 53289-9) RDW-CV (test code 14.9 % 12.1-15.4 = 788-0) PLT (test code = See_Comment [Automated message] 777-3) The system [employer] generated this result transmitted ref erence range: 150 - 32 8 10*3/?L. The re ference range was not u sed to interpret this result as normal/abnor mal. MPV (test code = 10.4 fL 9.8-13 12678-6) NRBC/100 WBC (test See_Comment [Automat ed message] code = 4913169808) The syste m which generated this result transmitted ref erence range: 0.0 - 10 .0 /100 WBCs. The refer ence range was not u sed to interpret this result as normal/abnor mal. NRBC x10^3 (test See_Comment [Automated message] code = 4558798904) The syste m which generated this result transmitted ref erence range: 10*3/?L. The reference range was not used to interpr et this result as normal/abnormal . GRAN MAT (NEUT) % 71.5 % (test code = 770-8) IMM GRAN % (test 0.40 % code = 3450574695) LYMPH % (test code 14.8 % = 736-9) MONO % (test code 6.6 % = 5905-5) EOS % (test code = 5.5 % 713-8) BASO % (test code 1.2 % = 706-2) GRAN MAT 5.35 10*3/uL 1.99-6.95 x10^3(ANC) (test code = 5092178690) IMM GRAN x10^3 0.03 10*3/uL 0-0.06 (test code = 3205923804) LYMPH x10^3 (test 1.11 10*3/uL 1.09-3.23 code = 731-0) MONO x10^3 (test 0.49 10*3/uL 0.36-1.02 code = 742-7) EOS x10^3 (test 0.41 10*3/uL 0.06-0.53 code = 711-2) BASO x10^3 (test 0.09 10*3/uL 0.01-0.09 code = 704-7) [facility] [id number] 23:23:00 Test Item Value Reference Range Interpretation Comments POC glucose (test code 104 mg/dL 65-99 H [facility] Name: Ndekwe = 73617-5) ChiebonykaCrissy ID: [id number] able: RN Notified Lab Interpretation Abnormal (test code = 86064-3) [facility] [id number] 23:23:00 Test Item Value Reference Range Interpretation Comments POC glucose (test code 104 mg/dL 65-99 H Opera tor Name: Ndekwe = 83107-2) ChiebonykaDe ID: [id number] able: RN Notified Lab Interpretation Abnormal (test code = 02260-2) [facility] 2 [id number] 21:58:00 Test Item Value Reference Range Interpretation Comments Product name (test code Red Cells AS1 = 25) Leukored Irrad Unit number (test code = [id number] 8242588) Product code (test code H1317H35 = 3092) Dispense status (test Transfused code = 24) Blood expiration date (test code = 302) Blood type code (test code = 308) Blood type (test code = O POSITIVE 1314) Compatibility (test code Compatible = 6400) [facility] 2 [id number] 21:58:00 Test Item Value Reference Range Interpretation Comments Product name (test code Red Cells AS1 = 25) Leukored Irrad Unit number (test code = [id number] 4834485) Product code (test code H4684E76 = 3092) Dispense status (test Transfused code = 24) Blood expiration date (test code = 302) Blood type code (test code = 308) Blood type (test code = O POSITIVE 1314) Compatibility (test code Compatible = 6400) [address]2022-04-29 15:44:31 Test Item Value Reference Range Interpretation Comments Ventricular rate (test code = 253) Atrial rate (test code = 255) VT interval (test code = 266) QRSD interval (test code = 260) QT interval (test code = 264) QTC interval (test code = 265) P axis 1 (test code = 267) QRS axis 1 (test code = 268) T wave axis (test code = 270) EKG impression (test Normal sinus code = 273) rhythm-Possible Inferior infarct (cited on or before 22-SEP-2018)-Cannot rule out Anterior infarct , age undetermined-Abnormal ECG-In automated comparison with ECG of 25-SEP-2018 17:48,-Questionable change in QRS axis-ST no longer elevated in Inferior leads-ST no longer elevated in Lateral leads-Nonspecific T wave abnormality no longer evident in Inferior leads- [address]2022-04-29 15:44:31 Test Item Value Reference Range Interpretation Comments Ventricular rate (test code = 253) Atrial rate (test code = 255) VT interval (test code = 266) QRSD interval (test code = 260) QT interval (test code = 264) QTC interval (test code = 265) P axis 1 (test code = 267) QRS axis 1 (test code = 268) T wave axis (test code = 270) EKG impression (test Normal sinus code = 273) rhythm-Possible Inferior infarct (cited on or before 22-SEP-2018)-Cannot rule out Anterior infarct , age undetermined-Abnormal ECG-In automated comparison with ECG of 25-SEP-2018 17:48,-Questionable change in QRS axis-ST no longer elevated in Inferior leads-ST no longer elevated in Lateral leads-Nonspecific T wave abnormality no longer evident in Inferior leads- [facility] [Presence] in Respiratory specimen by NANNETTE with probe [id number] 01:50:35 Test Item Value Reference Range Interpretation Comments SARS-CoV-2 (COVID-19) RNA Not detected [Presence] in Respiratory specimen by NANNETTE with probe detection (test code = 17881-8) Whether patient is employed in a Unknown healthcare setting (test code = 43662-6) Whether the patient has symptoms Unknown related to condition of interest (test code = 92840-2) Whether the patient was Unknown hospitalized for condition of interest (test code = 17401-0) Whether the patient was admitted Unknown to intensive care unit (ICU) for condition of interest (test code = 44806-5) Whether patient resides in a Unknown congregate care setting (test code = 62411-0) status (test code = Unknown 07712-2) Date and time of symptom onset Unknown (test code = 39074-5) [facility] ED Preliminary Interpretation - Not an Ybuss4970-97-46 21:46:21 Test Item Value Reference Range Interpretation Comments MITCHELL (test code = MITCHELL) Beka Qureshi DO 07/01/2021 8:34 [facility] Preliminary Interpretation - Not an OrderPerformed by: Beka Qureshi DOAuthorized by: Beka Qureshi DO ECG reviewed by ED Physician in the absence of a finance controller: yes Interpretation: Interpretation: abnormal Rate: ECG rate: 92 ECG rate assessment: normal Rhythm: Rhythm: sinus rhythm Ectopy: Ectopy: none QRS: QRS axis: Normal QRS intervals: NormalConduction: Conduction: normal ST segments: ST segments: Non-specificT waves: T waves: non-specific Lab Interpretation Abnormal (test code = 12838-7) [facility] Preliminary Interpretation - Not an Kpqta2788-40-49 21:46:21 Test Item Value Reference Range Interpretation Comments MITHCELL (test code = MITCHELL) Beka Qureshi DO 07/01/2021 8:34 [facility] Preliminary Interpretation - Not an OrderPerformed by: Beka Qureshi DOAuthoribharati by: Beka Qureshi DO ECG reviewed by ED Physician in the absence of a finance controller: yes Interpretation: Interpretation: abnormal Rate: ECG rate: 92 ECG rate assessment: normal Rhythm: Rhythm: sinus rhythm Ectopy: Ectopy: none QRS: QRS axis: Normal QRS intervals: NormalConduction: Conduction: normal ST segments: ST segments: Non-specificT waves: T waves: non-specific Lab Interpretation Abnormal (test code = 47636-5) [facility]sp[facility]2021-04-17 15:36:11 Test Item Value Reference Range Interpretation Comments Result (test code = No acid-fast bacilli 6463-4) isolated in 42 days AFB Smear (test code = No acid fast bacilli 47886-8) [facility]sputum)2021-04-17 15:36:11 Test Item Value Reference Range Interpretation Comments Result (test code = No acid-fast bacilli 6463-4) isolated in 42 days AFB Smear (test code = No acid fast bacilli 04062-6) seen [facility] + SMEAR (NON-SPUTUM)2021-04-17 15:36:11 Test Item [...] code = 994) seen Fungus culture + [id number] 00:16:15 Test Item Value Reference Range Interpretation Comments Result (test code = No fungus isolated in 6463-4) 28 days Fungus Smear (test No fungi seen code = 1406) [facility] + wzkpw9711-08-53 00:16:15 Test Item Value Reference Range Interpretation Comments Result (test code = No fungus isolated in 6463-4) 28 days Fungus Smear (test No fungi seen code = 1406) [facility] + [id number] 00:16:15 Test Item Value Reference Range Interpretation Comments CULTURE (BEAKER) (test No fungus isolated in code = 1095) 28 days FUNGUS SMEAR (BEAKER) No fungi seen (test code = 1406) FUNGUS CULTURE + [id number] 00:16:15 Test Item Value Reference Range Interpretation Comments CULTURE (BEAKER) (test No fungus isolated in code = 1095) 28 days FUNGUS SMEAR (BEAKER) No fungi seen (test code = 1406) POC-Glucose ucgzm3664-01-23 12:51:38 Test Item Value Reference Range Interpretation Comments POC-Glucose Meter (test 76 mg/dL 70-110 : TE STED AT [facility] code = 1538) [address] [facility], [facility] 30: Wildlife Refuge Manager/Techni estefani ID = [id number] for Reji, Jewels Lab Interpretation (test Normal code = 24430-6) [facility] rtrro3165-57-46 12:51:38 Test Item Value Reference Range Interpretation Comments POC-Glucose Meter (test 76 mg/dL 70-110 : TE STED AT [facility] code = 1538) [address] [place] [address], 770 30: Wildlife Refuge Manager/Techni estefani ID = [id number] for Reji, Jewels Lab Interpretation (test Normal code = 83984-6) [facility] HospitalPO[facility]SE [id number] 12:51:38 Test Item Value Reference Range Interpretation Comments POC-GLUCOSE METER 76 mg/dL 70-110 : [facility] (BEAKER) (test code = [facility], 1538) [address]2008: Wildlife Refuge Manager/Techni estefani ID = [id number] for Pier re, Jewels POCT-GLUCOSE [id number] 07:54:53 Test Item Value Reference Range Interpretation Comments POC-GLUCOSE METER 77 mg/dL 70-110 : TESTED A T [facility] 6720 (BEAKER) (test code = [facility], 1538) [address]: Wildlife Refuge Manager/Techni estefani ID = [id number] for Sandie Wall Basic Metabolic Plmig7980-32-80 05:33:29 Test Item Value Reference Range Interpretation Comments Sodium (test code = 134 meq/L 136-145 L 2951-2) Potassium (test code = 5.3 meq/L 3.5-5.1 H 2823-3) Chloride (test code = 101 meq/L 98-107 2075-0) CO2 (test code = 21 meq/L 22-29 L 2028-9) BUN (test code = 36 mg/dL 7-21 H 3094-0) Creatinine (test code 10.24 mg/dL 0.57-1.25 H = 2160-0) Glucose (test code = 77 mg/dL 70-105 2345-7) Calcium (test code = 8.2 mg/dL 8.4-10.2 L 07712-3) EGFR (test code = 5 mL/min/1.73 [place] [address]-4) NOT ACCURATE CREATININE CLEARANCE IN PREDICTING GLOMERULAR FILTRATION RATE . ESTIMATED GFR I S NOT APPLICABLE FOR DIALYSIS PATIENTS. MITCHELL (test code = MITCHELL) Wildlife Refuge Manager ID - [employer] G Lab Interpretation Abnormal (test code = 35344-3) [facility] Metabolic [id number] 05:33:29 Test Item Value Reference Range Interpretation Comments Sodium (test code = 134 meq/L 136-145 L 2951-2) Potassium (test code = 5.3 meq/L 3.5-5.1 H 2823-3) Chloride (test code = 101 meq/L 98-107 2075-0) CO2 (test code = 21 meq/L 22-29 L 2028-9) BUN (test code = 36 mg/dL 7-21 H 3094-0) Creatinine (test code 10.24 mg/dL 0.57-1.25 H = 2160-0) Glucose (test code = 77 mg/dL 70-105 2345-7) Calcium (test code = 8.2 mg/dL 8.4-10.2 L 06367-0) EGFR (test code = 5 mL/min/1.73 [place] [address]-6) NOT ACCURATE CREATININE CLEARANCE IN PREDICTING GLOMERULAR FILTRATION RATE . ESTIMATED GFR I S NOT APPLICABLE FOR DIALYSIS PATIENTS. MITCHELL (test code = MITCHELL) Wildlife Refuge Manager ID - KILO G Lab Interpretation Abnormal (test code = 85378-7) [facility] METABOLIC [id number] 05:33:29 Test Item Value Reference Range Interpretation [...] S NOT APPLICABLE FOR DIALYSIS PATIEN TS. Wildlife Refuge Manager ID - KILO GVancomycin level, [id number] 05:18:50 Test Item Value Reference Range Interpretation Comments Vancomycin Rm (test 45.9 ug/mL code = 16861-8) MITCHELL (test code = Reference Range: No MITCHELL) NormalsOperator ID - DB [facility] Centerycin level, [id number] 05:18:50 Test Item Value Reference Range Interpretation Comments Vancomycin Rm (test 45.9 ug/mL code = 65896-7) MITCHELL (test code = Reference Range: No MITCHELL) NormalsOperator ID - DB [facility], [id number] 05:18:50 Test Item Value Reference Range Interpretation Comments VANCOMYCIN RANDOM (BEAKER) (test 45.9 ug/mL code = 523) Reference Range: No NormalsOperator ID - DBPOCT-GLUCOSE [id number] 21:32:38 Test Item Value Reference Range Interpretation Comments POC-GLUCOSE METER 92 mg/dL 70-110 : TESTED A T [facility] 6720 (BEAKER) (test code = [facility], 1538) [address]: Wildlife Refuge Manager/Techni estefani ID = [id number] for Ramonita Amador od POCT-GLUCOSE [id number] 17:02:02 Test Item Value Reference Range Interpretation Comments POC-GLUCOSE METER 106 mg/dL 70-110 : TESTED A T [facility] 6720 (BEAKER) (test code = [facility], 1538) 67[address]: Wildlife Refuge Manager/Techni estefani ID = [id number] for Sandie Kyle POCT-GLUCOSE [id number] 12:00:05 Test Item Value Reference Range Interpretation Comments POC-GLUCOSE METER 83 mg/dL 70-110 : TESTED A T [facility] 6720 (BEAKER) (test code = [facility], 1538) [address]39: Wildlife Refuge Manager/Techni estefani ID = [id number] for Sandie Wall BASIC METABOLIC [id number] 10:36:14 Test Item Value Reference Range Interpretation [...] S NOT APPLICABLE FOR DIALYSIS PATIEN TS. Wildlife Refuge Manager ID - DBPOCT-GLUCOSE [id number] 07:25:42 Test Item Value Reference Range Interpretation Comments POC-GLUCOSE METER 77 mg/dL 70-110 : TESTED A T [facility] 6720 (BEAKER) (test code = [facility], 1538) 36325: Wildlife Refuge Manager/Techni estefani ID = [id number] for Sandie Wall POCT-GLUCOSE [id number] 21:13:53 Test Item Value Reference Range Interpretation Comments POC-GLUCOSE METER 98 mg/dL 70-110 : TESTED A T [facility] 6720 (BEAKER) (test code = [facility], 1538) 39920: Wildlife Refuge Manager/Techni estefani ID = [id number] for WILMER MCDUFFIE POCT-GLUCOSE [id number] 15:43:19 Test Item Value Reference Range Interpretation Comments POC-GLUCOSE METER 101 mg/dL 70-110 : TESTED A T [facility] 6720 (BEAKER) (test code = [facility], 1538) 37262: Wildlife Refuge Manager/Techni estefani ID = [id number] for Indy Stevenson BASIC METABOLIC [id number] 13:17:24 Test Item Value Reference Range Interpretation [...] S NOT APPLICABLE FOR DIALYSIS PATIEN TS. Wildlife Refuge Manager ID - JAQUELINE MPOCT-GLUCOSE [id number] 12:00:02 Test Item Value Reference Range Interpretation Comments POC-GLUCOSE METER 89 mg/dL 70-110 : TESTED A T [facility] 6720 (BEAKER) (test code = [facility], 1538) 604[address]: Wildlife Refuge Manager/Techni estefani ID = [id number] for Cornel Indy venegas POCT-GLUCOSE [id number] 08:08:40 Test Item Value Reference Range Interpretation Comments POC-GLUCOSE METER 77 mg/dL 70-110 : TESTED A T [facility] 6720 (BEAKER) (test code = [facility], 1538) 48936: Wildlife Refuge Manager/Techni estefani ID = [id number] for Indy Hodgson POCT-GLUCOSE [id number] 23:32:15 Test Item Value Reference Range Interpretation Comments POC-GLUCOSE METER 84 mg/dL 70-110 : TESTED A T [facility] 6720 (BEAKER) (test code = [facility], [facility]) 98477: Wildlife Refuge Manager/Techni estefani ID = [id number] for JENNA REED AMY POCT-GLUCOSE [id number] 17:21:27 Test Item Value Reference Range Interpretation Comments POC-GLUCOSE METER 111 mg/dL 70-110 H : TESTED A T [facility] 6720 (BEAKER) (test code = [facility], [facility]) 26210: Wildlife Refuge Manager/Techni estefani ID = [id number] for MOLLY CARBAJALEMELI, ANKIT POCT-GLUCOSE [id number] 12:58:04 Test Item Value Reference Range Interpretation Comments POC-GLUCOSE METER 74 mg/dL 70-110 : TESTED A T [facility] 6720 (BEAKER) (test code = [facility], [facility]) 56253: Wildlife Refuge Manager/Techni estefani ID = [id number] for KELSI MARCOS, ANKIT POCT-GLUCOSE [id number] 00:02:33 Test Item Value Reference Range Interpretation Comments POC-GLUCOSE METER 105 mg/dL 70-110 : TESTED A T [facility] 6720 (BEAKER) (test code = [facility], [facility]) 85507: Wildlife Refuge Manager/Techni estefani ID = [id number] for FARHAN NINA KAREN POCT-GLUCOSE [id number] 15:46:51 Test Item Value Reference Range Interpretation Comments POC-GLUCOSE METER 77 mg/dL 70-110 : TESTED A T [facility] 6720 (BEAKER) (test code = [facility], 1538) 91340: Wildlife Refuge Manager/Techni estefani ID = [id number] for KELSI PSON, ANKIT Lpkrgimbue7105-83-46 13:53:39 Test Item Value Reference Range Interpretation Comments Phosphorus (test code = 5.2 mg/dL 2.3-4.7 H 2777-1) MITCHELL (test code = MITCHELL) Wildlife Refuge Manager ID - DANITZA L Lab Interpretation (test Abnormal code = 64421-1) [facility] 13:53:39 Test Item Value Reference Range Interpretation Comments Phosphorus (test code = 5.2 mg/dL 2.3-4.7 H 2777-1) MITCHELL (test code = MITCHELL) Wildlife Refuge Manager ID - GARYZAYRA L Lab Interpretation (test Abnormal code = 96911-3) [facility] [facility]:53[facility]39 Test Item Value Reference Range Interpretation Comments PHOSPHORUS (BEAKER) (test code = 5.2 mg/dL 2.3-4.7 H 604) Wildlife Refuge Manager ID - DANITZA LPOCT-GLUCOSE [id number] 09:32:21 Test Item Value Reference Range Interpretation Comments POC-GLUCOSE METER 76 mg/dL 70-110 : TESTED A T [facility] 67[facility] (BEAKER) (test code = DASIA Garcia [facility], 1538) [address]: Wildlife Refuge Manager/Techni estefani ID = [id number] for Santiago Shaw BASIC METABOLIC [id number] 04:51:29 Test Item Value Reference Range Interpretation [...] S NOT APPLICABLE FOR DIALYSIS PATIEN TS. Wildlife Refuge Manager ID Benjie LUEVANO [facility] with platelet count + automated [id number] 04:35:39 Test Item Value Reference Range Interpretation Comments WBC (test code = 6690-2) 7.1 See_Comment [A utomated message] The system [employer] generated this result transmitted ref erence range: 3.5 - 10 .5 K/L. The refe rence range was not u sed to interpret this result as normal/abnor mal. RBC (test code = 789-8) 3.30 See_Comment L [Au tomated message] The system [employer] generated this result transmitted ref erence range: 4.63 - 6 .08 M/L. The refe rence range was not u sed to interpret this result as normal/abnor mal. MCHC (test code = 786-4) 28.9 See_Comment L [A utomated message] The system [employer] generated this result transmitted ref erence range: 32.3 - 3 6.5 GM/DL. The refe rence range was not u sed to interpret this result as normal/abnor mal. Hematocrit (test code = 30.5 % 40.1-51.0 L 4544-3) MCV (test code = 787-2) 92.4 fL 79.0-92.2 H MCH (test code = 785-6) 26.7 pg 25.7-32.2 RDW (test code = 788-0) 17.6 % 11.6-14.4 H Platelets (test code = 358 See_Comment [Aut omated message] 777-3) The system [employer] generated this result transmitted ref erence range: 150 - 45 0 K/CU MM. The referen ce range was not u sed to interpret this result as normal/abnor mal. MPV (test code = 9.0 fL 9.4-12.4 L 08582-6) nRBC (test code = 413) 0 See_Comment [Aut omated message] The system [employer] generated this result transmitted ref erence range: 0 - 0 /1 00 WBC. The refere nce range was not u sed to interpret this result as normal/abnor mal. % Neutros (test code = 59 % 429) % Lymphs (test code = 19 % 430) % Monos (test code = 9 % 431) % Eos (test code = 432) 11 % % Baso (test code = 437) 2 % # Neutros (test code = 4.24 See_Comment [Aut omated message] 670) The system [employer] generated this result transmitted ref erence range: 1.78 - 5 .38 K/L. The refe rence range was not u sed to interpret this result as normal/abnor mal. # Lymphs (test code = 1.36 See_Comment [Auto mated message] 414) The system [employer] generated this result transmitted ref erence range: 1.32 - 3 .57 K/L. The refe rence range was not u sed to interpret this result as normal/abnor mal. # Monos (test code = 0.63 See_Comment [Autom ated message] 415) The system [employer] generated this result transmitted ref erence range: 0.30 - 0 .82 K/L. The refe rence range was not u sed to interpret this result as normal/abnor mal. # Eos (test code = 416) 0.77 See_Comment H [Au tomated message] The system [employer] generated this result transmitted ref erence range: 0.04 - 0 .54 K/L. The refe rence range was not u sed to interpret this result as normal/abnor mal. # Baso (test code = 417) 0.12 See_Comment H [A utomated message] The system [employer] generated this result transmitted ref erence range: 0.01 - 0 .08 K/L. The refe rence range was not u sed to interpret this result as normal/abnor mal. Immature 0 % 0-1 Granulocytes-Relative (test code = 2801) Lab Interpretation (test Abnormal code = 81424-6) [facility] with platelet count + automated [id number] 04:35:39 Test Item Value Reference Range Interpretation Comments WBC (test code = 6690-2) 7.1 See_Comment [A utomated message] The system [employer] generated this result transmitted ref erence range: 3.5 - 10 .5 K/L. The refe rence range was not u sed to interpret this result as normal/abnor mal. RBC (test code = 789-8) 3.30 See_Comment L [Au tomated message] The system [employer] generated this result transmitted ref erence range: 4.63 - 6 .08 M/L. The refe rence range was not u sed to interpret this result as normal/abnor mal. MCHC (test code = 786-4) 28.9 See_Comment L [A utomated message] The system [employer] generated this result transmitted ref erence range: 32.3 - 3 6.5 GM/DL. The refe rence range was not u sed to interpret this result as normal/abnor mal. Hematocrit (test code = 30.5 % 40.1-51.0 L 4544-3) MCV (test code = 787-2) 92.4 fL 79.0-92.2 H MCH (test code = 785-6) 26.7 pg 25.7-32.2 RDW (test code = 788-0) 17.6 % 11.6-14.4 H Platelets (test code = 358 See_Comment [Aut omated message] 777-3) The system [employer] generated this result transmitted ref erence range: 150 - 45 0 K/CU MM. The referen ce range was not u sed to interpret this result as normal/abnor mal. MPV (test code = 9.0 fL 9.4-12.4 L 33018-2) nRBC (test code = 413) 0 See_Comment [Aut omated message] The system [employer] generated this result transmitted ref erence range: 0 - 0 /1 00 WBC. The refere nce range was not u sed to interpret this result as normal/abnor mal. % Neutros (test code = 59 % 429) % Lymphs (test code = 19 % 430) % Monos (test code = 9 % 431) % Eos (test code = 432) 11 % % Baso (test code = 437) 2 % # Neutros (test code = 4.24 See_Comment [Aut omated message] 670) The system [employer] generated this result transmitted ref erence range: 1.78 - 5 .38 K/L. The refe rence range was not u sed to interpret this result as normal/abnor mal. # Lymphs (test code = 1.36 See_Comment [Auto mated message] 414) The system [employer] generated this result transmitted ref erence range: 1.32 - 3 .57 K/L. The refe rence range was not u sed to interpret this result as normal/abnor mal. # Monos (test code = 0.63 See_Comment [Autom ated message] 415) The system [employer] generated this result transmitted ref erence range: 0.30 - 0 .82 K/L. The refe rence range was not u sed to interpret this result as normal/abnor mal. # Eos (test code = 416) 0.77 See_Comment H [Au tomated message] The system [employer] generated this result transmitted ref erence range: 0.04 - 0 .54 K/L. The refe rence range was not u sed to interpret this result as normal/abnor mal. # Baso (test code = 417) 0.12 See_Comment H [A utomated message] The system [employer] generated this result transmitted ref erence range: 0.01 - 0 .08 K/L. The refe rence range was not u sed to interpret this result as normal/abnor mal. Immature 0 % 0-1 Granulocytes-Relative (test code = 2801) Lab Interpretation (test Abnormal code = 62841-3) [facility] W/PLT COUNT & AUTO [id number] 04:35:39 Test Item Value Reference Range Interpretation [...] PERCENT (BEAKER) (test code = 2801) POCT-GLUCOSE [id number] 21:21:08 Test Item Value Reference Range Interpretation Comments POC-GLUCOSE METER 116 mg/dL 70-110 H : TESTED A T [facility] 6720 (BEAKER) (test code = [facility], 1538) [address]997: Wildlife Refuge Manager/Techni estefani ID = [id number] for SHAMEKA ENRIQUEZ POCT-GLUCOSE [id number] 16:51:43 Test Item Value Reference Range Interpretation Comments POC-GLUCOSE METER 97 mg/dL 70-110 : TESTED A T [facility] 6720 (BEAKER) (test code = [facility], 1538) 91935: Wildlife Refuge Manager/Techni estefani ID = [id number] for ANKIT SMITH Type and screen, [id number] 14:48:00 Test Item Value Reference Range Interpretation Comments ABO/RH AUTOMATED (BEAKER) (test O POSITIVE code = 2260) Ab Scrn (test code = 890-4) [facility] [id number] 14:48:00 Test Item Value Reference Range Interpretation Comments ABO/RH AUTOMATED (BEAKER) (test O POSITIVE code = 2260) Ab Scrn (test code = 890-4) NEGATIVE [facility] [id number] 12:04:32 Test Item Value Reference Range Interpretation Comments POC-GLUCOSE METER 93 mg/dL 70-110 : TESTED A T [facility] 6720 (BEAKER) (test code = [facility], 1538) 10[address]: Wildlife Refuge Manager/Techni estefani ID = [id number] for ANKIT SMITH SARS-CoV2/RT-PCR (Asymptomatic ONLY)2021-03-11 10:47:57 Test Item Value Reference Range Interpretation Comments SARS-COV2/RT-PCR Negative Not Detected, (test code = Negative, See 80741-1) external report for linked test SARS-COV-2 [facility] PERFORMING LAB (test code = 63090-9) [place] (test code = Negative result for [...] of the Act. Fact Sheet for Healthcare Providers:https://www.[employer]/sites/default/f almita/product/documents/F act_Sheet_HC_Providers_L eie_JFEB-UbZ-1.pdf Fact Sheet for Healthcare Patients:https://www.[employer]/sites/default/fi les/product/documents/Fa ct_Sheet_Patients_Lyra_S ARS-CoV-2.pdf Performing Laboratory:[facility]-CoV2/RT-PCR (Asymptomatic ONLY)2021-03-11 10:47:57 Test Item Value Reference Range Interpretation Comments SARS-COV2/RT-PCR Negative Not Detected, (test code = Negative, See 74335-4) external report for linked test SARS-COV-2 [facility] PERFORMING LAB (test code = 35200-9) [place]LL (test code = Negative result for [...] of the Act. Fact Sheet for Healthcare Providers:https://www.[employer]/sites/default/f almita/product/documents/F act_Sheet_HC_Providers_L ceo_XFUB-YvR-4.pdf Fact Sheet for Healthcare Patients:https://www.[employer]/sites/default/fi les/product/documents/Fa ct_Sheet_Patients_Lyra_S ARS-CoV-2.pdf Performing Laboratory:[address] [place] [address] [facility])2021-03-11 10:47:57 Test Item Value Reference Range Interpretation Comments SARS-COV2/RT-PCR (test Negative Not Detected, Negative, code = 9245830) See external report for linked test SARS-COV-2 PERFORMING LAB [facility] (test code = 3200059) Negative result for this test determines that [...] of the Act.Fact Sheet for Healthcare Prov iders:https://www.[employer]/sites/default/files/product/documents/Fact_Sheet_HC _Qfrncfokz_Vzzh_XEZS-RzU-4.pdfFact Sheet for Healthcare Patients:https://www.[employer]/sites/default/files/product/docume nts/Daak_Hlyce_Kstakahn_Yyzh_MIAM-UlP-8.pdfPerforming Laboratory:[facility], [place] [address]WRJI-BZWFQPF METER 2021-03-11 07:26:03 Test Item Value Reference Range Interpretation Comments POC-GLUCOSE METER 81 mg/dL 70-110 : TESTED A T [facility] 6720 [facility] (test code = DASIA Garcia [facility], 1538) [address]05[address]: Wildlife Refuge Manager/Techni estefani ID = [id number] for ANKIT SMITH CBC W/PLT COUNT & AUTO [id number] 05:24:05 Test Item Value Reference Range Interpretation [...] PERCENT (BEAKER) (test code = 2801) POCT-GLUCOSE [id number] 20:58:34 Test Item Value Reference Range Interpretation Comments POC-GLUCOSE METER 123 mg/dL 70-110 H : TESTED A [place] [facility] 6720 (BEAKER) (test code = [facility], 1538) 41856: Wildlife Refuge Manager/Techni estefani ID = [id number] for Melody Mcintosh POCT-GLUCOSE [id number] 15:56:05 Test Item Value Reference Range Interpretation Comments POC-GLUCOSE METER 88 mg/dL 70-110 : TESTED A T [facility] 6720 (BEAKER) (test code = DASIA Garcia [facility], 1538) 17965: Wildlife Refuge Manager/Techni estefani ID = [id number] for NII MALONE CBC W/PLT COUNT & AUTO [id number] 05:41:29 Test Item Value Reference Range Interpretation [...] (BEAKER) (test code = 2801) BASIC METABOLIC [id number] 05:37:30 Test Item Value Reference Range Interpretation [...] S NOT APPLICABLE FOR DIALYSIS PATIEN TS. Wildlife Refuge Manager ID - JAQUELINE MPOCT-GLUCOSE [id number] 03:58:58 Test Item Value Reference Range Interpretation Comments POC-GLUCOSE METER 90 mg/dL 70-110 : TESTED A T [facility] 6720 (BEAKER) (test code = [facility], 1538) 40103: Wildlife Refuge Manager/Techni estefani ID = [id number] for ANTONY PEREIRA POCT-GLUCOSE [id number] 18:01:23 Test Item Value Reference Range Interpretation Comments POC-GLUCOSE METER 80 mg/dL 70-110 : TESTED A T [facility] 6732 (NOE) (test code = [facility], 1538) 88429: Wildlife Refuge Manager/Techni estefani ID = [id number] for TYRA MARIE Tissue [id number] 12:20:52 Test Item Value Reference Range Interpretation Comments Case Report (test code Surgical Pathology = 104) Report Case: [id number] Authorizing Provider: [employer] DPM Collected: 03/02/2021 03:11 PM Ordering Location: [address] Received: 03/02/2021 04:39 PM Service Pathologist: Liz Branham MD Specimen: Bone, Right achilles tendon/bone fragment for ID DIAGNOSIS (test code = l3qxwYWdGPZgv0geJNHksO 3220) FuZzEwMzNcZnRuYmpcdWMx IHtccnRmMVxlcGljOTYwMV pfmlKuWIKsgBYhL1Qzfqvt CLqzVB5eLX0vfMsdhSJkkA QoHGQtRcBki3ncw434eJWm z2sgNIBAeopvlBa6zMnaQ3 1ci9K5VxcuN78rpIErLYA9 DCPcRZOqjZSoKDSgIZM5MB MpcIRrX8rhLXDuAU6sdklj DTncZKhhNVOeeZP2WBDrmF BzQ7GyQKSeLSflSWBogbo9 PeXlAn6lnICbzWpdFAgsUR GyWKGvJPgmUFJlHcHpJF7h Gk3HHCucVzrXGFDrJIGHKJ jCVEAsTSNDQJ1NBTABNSJH SURFTUVOVDpccGFyXHRhYi PeVPVLDHIJNF6JOSGINWtT HUuCEDTnX2kGJNWGZJFMSW 5PUFVSVUxFTlQgRVhVREFU KD4vzGVhxIkthdWgUXsvy0 EeSZfiDTXmRZ5ohUcwNBFo TZ8dSFMvJ2kgoM4ixnd9Hu IuFHIzElI7XKHmqmY9Dvl2 RIKbPAozt0hia7KkVSLgBW j3vDqvEpXfTAEcy3qkduMf ZmNoYXJzZXQwIEFyaWFsO3 59n6htl5yordIzwNE9SALf PSB6DQvxevZuwoD4RXgehA StIjA7VQgafhUkLYqgizKv eiOjBtb2ESCmZ683CTK2yI voo4qlKJW8DYZaTIVlXeNu Op1qdQGjK544FQGpHENSAY YhgHb2JLKrnbVjzlPixOGW p422M695i5ynVVQkffZpwX uDipnav3nrU179LBUrjDHj sqUgCcGtICYrvXFbsCM3YD CiAH9lbmhnCIapEZgpIVIa imM8FSKxvWVqU4IfQSSrEW 4dqqzwVOZ5IWvfLSDxEDS6 CkKaZNJvm4Jhqfd9TmWtfj 3bag95AKK4m6OnjCazGOB3 MAY9IeOnRq2dbRDrPILpLT 6nDlCexKJlQXCyjg46yJna GXzuGUW1MOHiktZyi2Uwm3 rsFtUygbRbM2xyB0WnKLZc KGUaJLAeHyAdkbPax6Sic6 JyxTDifEi0q5zjRPZkVXIs nZomk1tmXNW0XQLcaFNqH4 evkA2wAGJzTF1wkzxao0qx NOrhHVtrJSAvbMQ5sjL2VH QovTMgV2UruL7gYFHgNQxp WUDhzeh5PoVmZt7xkAKjfS cyMFxzYmtwYWdlXHBnbmNv bnRccGduZGVjXHBsYWluXH BsYWluXGYwXGZzMjRccWxc bGFuZzEwMzNcaGljaFxmMV xtZsSfXJAkOFryG9tkUaLb JeSdRrq7SGWkzGLvHCEzSt f5PWLneUWjTEIOjQgcnS2n JZJrlNtflK0knLF9YNNnih NzjJJPhG2sJKVYfN9sCkW3 OwUhQvQ8LLH0IJzbkUUwfG 0= CPT Code(s) (test code k3fekQHkDVKoyGC7HmGnZJ = 3357) Gox1fgl1HheVUjiFXlLOpf vLDmmjDbia52aXE5uS16QI 3dBBTeYjA4YKKgwyV7Yds6 SMFeMDLpbNLwM758q8niq7 xsirIcxNF5jYmdBTSautio PhF2NXmzFQSmfamtLHg5AX etZWYfkPR9JJRyvEQvX9Gh DJNwNK2jsma2GQK8HSwvNU TpRdC5GLCxbMZiZWZylHue CCvgx941ULB3IkRnGZByfv ZuyYgrjG4mCqElUJK5LAWq NSwgODgzMTFccGFyfQ== CLINICAL HISTORY (test f4rasCBoDYJizHS2PxCnTX code = 3356) Ach5nzz1QapNKxpDOuJUwd mVWwukAmct12zMG2kS56TX 8eWUNiNxW7CTGljfG3Czo4 GVXdUBZdrGKzO766m7vxv8 xquyFiuJO1NIYeEYZ5XJit lhJfwzH1IQcavBFoShM7A8 xyZWQwXGdyZWVuMFxibHVl QCc9GUPorPPuzvGoUbGhQB JskWAqgBJ8CSHeZD4tkvnv QApwXJaiRXFbtvK7KVNdwX IvB7PgHKJrFC8mnulpELM2 DZtrYEQyTEM3OvBkHBMeq4 Vdtcl0GvZumWUml6KgVMEz G8MfGLC6v0GigJAvqXActY Yga9m4mzWsHKDcnVHjaXHv YWRkbDMwXHRycGFkZGZyM1 b7dgAuXDWsNvZxiGFgCCDt ZmIzXHRycGFkZGIxNVxjbG YqxGB4OWswsYGiIDY2KSKl NMOsh17bWFEeMqIyiqkoKy Tzsd2hfeCuI7matqTxwgyc bbXtwg6hUAeqzLGjWESdMW SaEAJvf84uZPCnbnSdpRTm oGdpqLC1s7vvKLZgP4sabI uZwLB5qES1YWinRAbfbHF0 JLcafLDdoTH1HKtpxHPdMQ O8HRIzOVHhy45eESKfLlHp kmygUcOgjf8vgyEkY8fjet CqlaoouuBurz4aRZheeTAn TAAjUWCsZFGxv95yPLKddv PfyJLvvUoszST9f6bxUILh F8xdgTbGqQE7hKx6ByHlM1 NdiWatYAM5GWapMEAiCGtr dGJsXHFyXGxpMVxyaTFccG kyzU6sNmGqSAdnMxPaO4Bn bFxwYXJkXGludGJsXGxpMV ugyNIsNDF6fBBlwYMeQUOp H1Uuj6IpKM8rnPUifHvayS t5sICbb3QbiexmlZPjWf1m dFxjZWxsXGludGJsXHJvd1 xwYXJkXHBhcn0= SPECIMEN SOURCE (test o3kfaRNwXABolQD3YzHvRF code = 3377) Qey2knr1ArwPFgbJWuJByw gPNzxwSzcs29mJU3pE75UT 9lIULgEdY3NUWbkeW6Kps7 GISrUWSdfGCqK657h7jhg0 izbiLlnCU9YQMvJPBfP6Ql CR8nAEZhdRLsE9gzVCWqWL WgC3BoZV4yAAOoMan4EYX0 WVq6MYTsbPCcmdSaBtTgAC GbyLXztKC9RTIbBN3joprf EWrgWWxsGCTamfQ2CWHwbS NcQ8RcTZAhXD0qwkvbWKJ1 NAdaMCApOJS3GjRnWLQms8 Wxsjb0IrWjkPDiHHafuISl nrdeMPrntmUrmHwuvB5sWq OfAJuzOxIjM0jzRaBfzSWv Go9xLLefBFK0 GROSS DESCRIPTION (test v6drvSAhUWNsoWHxKgUgUL code = 3365) RuXGFgj4nqGMXvrNZnAaGo MzNcZnRuYmpcdWMxXGRlZm Abe4sjv832nLGcm4lmKFHv CoL0nDPdVDDorOAyT327QL HiZDwdp4gsr5BjBBXkeENv c2B2NBBWynqftSi9gNccT1 7sh3Y2BiupK0yeKUWeDIHs R5NcWR1qKHJdVxs7SCX4YW K5GGGxHFJuU3CzWM6qYIRy fCOiISp1b5winOdcRKXhXF R8x7vrRBscvePnEZ9dgb0r gJd4t0yuobEdNMUaOGSveL IMKYZmO8ObeXvvDh1ykVh0 kUoeVyxsLKP9Bgu2DC6knj 97kfq4hEpuJWXaphbbImY8 RRchCZVeinweEOf6FOqdGU JnbDcyMFxtYXJncjcyMFxt YXJndDcyMFxtYXJnYjcyMF erHZHpKKJ0URddj714MEJ8 NTlle5fdl9qtaIThBvd0GP NeOgFyCtahWWbmi6Fba3cf TGGhhb3sZVI7tKNwoZsum4 N2mXUxSBTxnFFqqgKiETUq KaI3MItlZN9fbb91OZScKH E9ue9fcBRpoHnhhxXinKWo LWjhR0UeOTFjp457WVEtL7 PrBKEhy8F1mrAyFzBkKNZn yHM1pmZ3UPGwZNh8mRWpoy O9wsXhrTUwJ5itiY43VoJp sQWmI0GvvJ57PuYgkJHxV5 RcyZ09FpChaYObN1QyrK97 NwLcyFWiRIEzsDBoNj4oxI NpxJWsy4GmwNZnUSalL83d m588EPMdvaLuR3ujyKIpgf yblMZczsvkNPuypgO7NQPa XHBsYWluXGYxXGZzMjBcbG FuZzEwMzNcaGljaFxmMVxk UuCfXRSrQXmeC1zrMbEeEd MyMCBSZWNlaXZlZCBmcmVz aCBsYWJlbGVkIHRoZSBwYX LaON62I0SienGoFJbhXFNk PTUioX7gXS01vLWyqkWxsj KkIeExV0c7IJTajWmihLIj TJNtjkNhtz1jo11tQPTaPD shOZ98DyJbpoIfOpYjdpFq aFHohEBzr3RjqIOeVQMtZB wgdHJhYmVjdWxhdGVkIGJv zwYka9n2nRRvYGjombAudM KuqiTbqi1jqOBtidxjdwAh pq14aWYwj4uhtrRinzTnv0 1wmGS1mFUtjGZjqwRkF7ea XzKyai1fQCZfUB3zUqThE1 6zlH3zJ9HyMASsa9ViBRjr IA9lcV8xKqWkXOhbEQJ8cI AiwUDwTCTqJDhmZOAqli08 GQtyl0thOEJbLTPoA7PwVR HeSCFvhhYpUghjjX3yFBHn uXBth4DgeUD9nZLkJYLyQ1 Rsg46aQUFcOJAqcBZehTG8 NIFiIKGpZz8umZ86kbsegL XzFXJrbgPNOZN9cE2bYVXk VEXlqKXtNSGeSIO9GJBubF knMRRgk51iQEQgYNzlXQ68 nrBkf7hls5sfuvvyFQHkFF nguMNqY6D8rO2nJKRirpDE Yk7uf0kdQZUqVRQyu7X7UG Udw0Y8JFedUFMpvLFhATLv uKXzSXQmN3ZznLtwkhqjWP PsJDrHTKrCK5PKYTauGXG3 MICROSCOPIC DESCRIPTION q2hroLJyZZJgnRH9HlUyAE (test code = 3371) Acb6dur0PwuUAlzJHoVFgw tIZiioHeky24xQJ1uM17BP 8kVIOpOvJ3AWSkovU8Qrd9 TRPhPHSbvMWiI373a5oto1 tbctDcrZC1hUuoTMRljnzw FbU6PLryPPKknqsxNTs0KQ vkCXDzcKZ5TJSviQTiC3Mx HPNdYJ2awpd4WZK1RFmiLB SrHaZ5ZQMbeTRuLKNoyBtd DXncz118LXB1WpBsYESsro EunIusiI9tWaVhNNNSOCIs e0QzDXAnRVTeha5= SPECIAL STUDIES (test q4xstMUoMSLop7rtUKVpwJ code = 3376) FuZzEwMzNcZnRuYmpcdWMx GVtkzxOgOHdxe5LnH1EdJr AwMFxhbnNpXGRlZmxhbmcx RNSwTQD3ecJoUGClAFuxXD IkUStoQg9cvXDnfYruSvKs GASby2zdgjBHrwqqmQx8t6 hdQASzZgK9yFXnEFenJ2ru teEvgPEeR4PlmNLdfFc6t4 xmFpQqUzE2jWKqMVgyP2lx dbLilCJxHZFmERs8mA49PK EevS8myERwLSccadQfJtK3 SQwuPJUvCyT3PUZkiEIfHG ClJ8ulZHRbTFceSHCvEUxq pPWlLAI0mCsjw9L8vGCmnC SubLgkNfPxLpZcHhYVl6Kk NTx8yBzdR6ZlUUSgXwS1eX QgUGFyYWdyYXBoIEZvbnQ7 lLqrhvLnr26olIVxCBHgBH KuUgNccYdbADLaPSPEg7Da oMotJHN6vXk3jOllChoxFN Z3Oyh2LU3qaa56ato3jLkf WDAgjjidJsU2YEhmWJXiht dyETv7YKhkQWTenUS1LXEv uRZvO1MbNILqQZ2kkky5LE W8HFxlIMNzLqZ1UTTziVDq JMZawNqiWDcfq363LUB6Od RyIZ1qR4Qyc4Y0kV7nhBLo HRDidDSxJzNhIGEtcq0qcW BgAEfre4MxLDT6yxF5bMLa mVYzYNBaXA35Xercf0HrFs qmr7EhG40oiVR3LWocq1gm TS9yBzP8lmIsVRewq9jjlZ 4vBqL1APhdJE3nGT7wCVTu tP9qjlhiGEIrGrRdwtcuQD BdjXqxlhDlHq0vlCuwMYI8 HNegT8gesQ3fNbI9EKqxC8 ymsL2kSSn2LRytfLI1CQDp lK9nHZ4oqdddh1ofGGfdKP udSXLfajZ7kwX7HJTgnENk S5ArbB3yQFNnKF6heebur1 djOSA9SRdaIEJpBTK1PtZb BNBzz8Yvkik8BvTza2IhuR IyBJnsY51vd680ODQvvhFs F0ejvEAnwbtbqFHkbhzaAH rffdV7HNOePJHvKEtjUCWn XGZzMjJcbGFuZzEwMzNcaG ljaFxmMVxkYmNoXGYxXGxv U2onQcYiN5CyUJXuKhYfZP fmEGtrsHJfjNPofAI4tB2r SP9pXBOszGErN2KfTFYwpq ThyMHuJFJ8qIDdwJNfPG4m STvgvXTbc7ezs8DtT6mzzX hulHX7HQ5aLHHxZTLcHRux c1WmlS5eUiihqTDudoecEA xmczIyXGxhbmcxMDMzXGhp F2gdMrEkCLPrvPopLRgyz9 NoXGYxXGNmMlxmczIyXGx0 cmNoXHBhclxwYXJccGxhaW 7sBjPpNcEaFfjbBQ8hKIAu B5sruXIaGUOcKVDoG4djYu VijR8tcWezRMtxNeAvCyKb MqFSc209oo9rIBJgmPWynl ULdKKxbH7cBEvbXTugZYzu cVBjNPdst7qiRUFil8q0xT CeHRJszrUcu6daHUuxzkRv WFXdqEHzmBHmCXDiy63cAM bfaFrrjExyFKPjz4MhlOuw d9RoFdLsIShxb0AaO58gdS JvbCBzbGlkZXMgcnVuIGFs g46yr5hvLMXyShI0sSIxuO M4mEUkhPYmv1XfaBhsXNBk s4siAXNqni4svzfnfLNqv6 GsmR7nlswoBGtjdQZcytOl PDFlq7l0zCVtPAHnFCCpVT vjoWd7ORXem976aa3qijC9 vQLqMPS9QBjpETFzHYIxwd UgZXZhbHVhdGVkXHBsYWlu XGYxXGZzMjJcbGFuZzEwMz NcaGljaFxmMVxkYmNoXGYx LUesU8xeQfMxZ5MyWBLxCb UwgIYlP9gsrWFmTXEdVOhu XGYxXGZzMjJcbGFuZzEwMz NcaGljaFxmMVxkYmNoXGYx SVzcF1roWoTpM6DbFCVkRa IgIFxwbGFpblxmMVxmczIy JIyuqmeeRIIgJHibB6mwDn NxZVPgpMlvLUstp7ReTASa GCFnPbtjufQtERb5slEmCD BhclxwbGFpblxmMVxmczIy VDafiszoFJRrKIemQ4wlQw CpMVSrnLrhMKxiw0NnHDVp XGNmMlxmczIyIEltbXVub2 lbe8FfT6mlhIrdeYO5QWCq N3lmoZXddSW6OTP8mQ7qCE uwzzOlVFApk8SlKOEsUHFd CuU4xX3iSCU3EiCIiAheZI BsYWluXGYxXGZzMjJcbGFu ZzEwMzNcaGljaFxmMVxkYm BeXJAuKLjlK8wvPnJbB5Sc DBXtPpShbLtyNYfuWDk7Lv xwbGFpblxmMVxmczIyXGxh jekuIRBoSXbmT8phMvRdRG KsyBzaSLklz2FaMIAlDNIo MlxmczIyIHMgTWVkaWNhbC OHKJ03CUEpATCoaPfkmL2j mYYYRHJhimS8h0T0ELwzXV OlDLl0ENjfkoOqYGNfsR8r GNSqOM6oUHl9zxWdDZWmr6 BjFV9jCYSqaOLpWFY2XREa t2VlY7Yiu0AwTUAiHZIori 1qphBtUdLCgINfZXFozx74 WKZdIJ0gS1weLHJwCOPnbv AfbSQtv9EoWYGdfYJ8aGPj MP4LNmCKj09dXMOwCYUArx LeWGUwlApeuLH7zeC2wM4v LiBUaGUgRkRBIGhhcyBkZX Fvnl9sfzFpLOOsCPAax7Et hUEouHIpcuIrV8Dwn5BzPI Mrpx94NEmgbQPyfm02MG0p R6Kor3UixT6aPXcbMLHpl7 HraQWflWJeGUMcp9UxX2rq pqrdCGzasRPhsW4uWTJpRX z1SOObs8DuQLZax6ChGpVh kgBtFTApUCVeYWBrzL29DI U9zQsayNhlzuIrJI0hFTFm aiRcTUYrVZVkjC4bAXbzvf YpJRMzlsU3m2X3JPcwGGQh xpWhRfrmHDR8ilTuwsW8yC OgJ8pyulefHDpsRROzq4Pr oN7oiGYKwVHtl2QbsTIlaP KEfCUgLR8iusKnJW0fDMU3 ODggKENMSUEtODgpIGFzIH T7JEjeMmeiLVP3obYyTRTg d1YhFIngL8nnW45dbLutgQ b9fRAcaYyygYKcfRGjXANp wyN9d2O3DFVzm9GrribxJZ BsYWluXGYyXGZzMjJcbGFu ZzEwMzNcaGljaFxmMlxkYm UaYKOwTVgtW9ofGpFfGfHr WidwGDO5jF== Gross assessment was [facility] performed at ([facility], = 2777) Department of Pathology, [address] [place] [id number], Technical component was [facility] performed at ([facility], = 2778) Department of Pathology, [address] [place] [id number], Professional component [facility] was performed at ([facility], code = 2779) Department of Pathology, [address] [place] [id number], [facility] [id number] 12:20:52 Test Item Value Reference Range Interpretation Comments Case Report (test code Surgical Pathology = 104) Report Case: [id number] Authorizing Provider: Star Cloud DPM Collected: 03/02/2021 03:11 PM Ordering Location: [address] Received: 03/02/2021 04:39 PM Service Pathologist: Liz Branham MD Specimen: Bone, Right achilles tendon/bone fragment for ID DIAGNOSIS (test code = [id number]) FuZzEwMzNcZnRuYmpcdWMx IHtccnRmMVxlcGljOTYwMV xaguBlSDVikYBwB8Wefmav ULktWU5oLX2doYaqgRUbaP JjAKVlPyJzx5uak916gLHr a9ibJOJTbmgzcVg5oMgyU6 8kw5S1SkezE35ptWZlUDE5 VBAkOCOjsMVnQTToYSJ2RX EduSEvN6vxBZYcUS9jehwy AFbiYEpfXUFjuZP7DLZuyK KfH1ZhQPZhIRoiVORldfh1 JkWjMk9smWBxyHrnTBxwGF CwFEWsFCzuVLDhSjAiTU6r Sw8YQRchTgmEJLFeWCXURG fVBRJpNMHZKA1URWSHUXUO SURFTUVOVDpccGFyXHRhYi HhZYVQYQSIJS4MJYVPLHgQ GMyALDRaU1gLSOPAUYINNG 5PUFVSVUxFTlQgRVhVREFU DB3nyIVseOzgzlKyPBhzp3 ImZZpkLOQiPI4koRpkXASz YU3oFTTnO6nsuW6niwd7Gy MpLOKuMlS7GSBuymI2Ewi3 UTCiSFxsc3rdl1PaJHWcPL f9yKocMiLeBJYnl4zqroLt ZmNoYXJzZXQwIEFyaWFsO3 39u4oqu0enslIebVI2IAQx CAH6QWavhuKzakJ4VHqzmO ItOeE2WCtiaeYxPBelfpWc oyBvJwq3OIZgU972MLK7jS lfi8vgOFH4MQRoJGTdShVh Nj0trPAhE604GTHnXXCUMJ ZrcOe4GRSoxtMeanIpdKKJ z776A607g9zmBBXcpfZdcX rXadovu6geJ724HLZueOTa amMfCsGsFPOedZJboVJ2NH OiPO7rbhmhUPjpJQzwQYWv bjZ5WHJdsFWpU0BoJGFmMA 6oqvmvFFT9JGufBBJjHCS9 FuKnCFEvu2Geuwv2AkKnpd 7fal10DBG5j4EqfLecSTB7 GOZ2ZjLkEc6ccVAtDAThEJ 1vFdMcgUJsSVOnrz85fVrg OXhlVDZ5VQVvdjDmu9Enu8 dbNaYqpuKjJ0ilK7SzJCDz OZLeHFObMpVekwOae3Acm5 YdnMGpfEu8r9tqHAIxEHUd dKcqi4bbSEP8NWFxkBHzC3 ptpQ4kFBVuKE8hrxzvw2zv IFqwMNerWXEpjZA0vaJ3AR LvuBEsF2EkwX9kLOJmGDqb MFQlmel8XbHsZj6zrRJitT cyMFxzYmtwYWdlXHBnbmNv bnRccGduZGVjXHBsYWluXH BsYWluXGYwXGZzMjRccWxc bGFuZzEwMzNcaGljaFxmMV ikTgTuRNBkPYpkF7vpEzMw FqIaGtn6ESJjuWNnWXAeTk e9QDKdmGJwJKNAiFmexD8v MRDipBivoL9foGS7RRLozy DtlQLQnV5yJPICfU8xUsC3 QbJfCkL2OCV1BFzuiVCnmC 0= CPT Code(s) (test code u0jfaFWpLTBwtKH4ItKuZC = 3357) Yhl3zam6NriNSlxNLsAFox jODhboHvie12rEO8gG40VC 7wJJPnThW6OQAjupR6Twe5 JWCmTJDftPOzK517w2blp1 vuvdKphRL9uEaiZECkkcsw SjW5BUjqJAGgfpwoHSj4JJ kpGOImfUS4EBNtdDNhJ4Qy XSLuVF5drkr2BCK1ZVaqNP PzSjL6KANriZAzKVVaiGri SQibv535NDG0FkRuIUGvlp IwoVunyH8bLuDqSNS8IVYg NSwgODgzMTFccGFyfQ== CLINICAL HISTORY (test q2ieyDBwMMLscVB9GfZoMK code = 3356) Hsq5wat3VgtFJwzQTjTTyo nMKtzhNfnk98wDL3dL68US 5nBQJxEtS0OSZpogM7Kpr8 UZUvKKXweSUyD367j2dlz6 cskkQrhRV9PLIzZEU3FQxk udIaskB7EEqvzJEfYcF4Q4 xyZWQwXGdyZWVuMFxibHVl SCf5ODYikUBpscRnNfJiGH JadCJncLR1YGZtCE8jxogf YWljQAbhDEQkxbZ8DHFnoB EiU8CgJVJhMU0wkdlfDIM6 SNucQKKcVGW9OeHoVRWwz6 Icndi3UaQmyIExl4ZiUSWj N8EsRHY5x9NobHAnnZWomD Zut2s5hvWjLFLhfRKcaKCe YWRkbDMwXHRycGFkZGZyM1 y3ryMsXYQrDaEdgYCvHSQs ZmIzXHRycGFkZGIxNVxjbG YpdNO9NWoztMGbSDV1YNWr FCKoe49hQEInIfFyshotTm Pati1llsAhE2fowqGegipu fcEywn1kRBwyzHPuXLPhIR DnDMKwe84bJHEfxzXopNZa sMvnaEU6b5wsEEZuC4vgiY pZuSX3tIC0YRtdHXlcpYS3 HPhxlLZeiWQ2HZnvnJUcED C6ONZpSQNiq02uZJJhXrUd tmslAlQaft2aomJwH5njnj ItjujlijWcso2yKUhxrBJe MEHtOUAqDEQyi52jMJVpef RymPJelDzkrDL3e1smJBVw Z8tjjJsOhWL5nZj1NeEzV0 CkvIapNVG4LNjzRGKkGMcz dGJsXHFyXGxpMVxyaTFccG nxhV4dDzBdEXuxYbCwJ6Qk bFxwYXJkXGludGJsXGxpMV pmdXAyRCS9zRQdiIWkVUXr A8Xmx8TjLA9xvUKhiRoktN f4cKTvn6SoatzntUFfEz5m dFxjZWxsXGludGJsXHJvd1 xwYXJkXHBhcn0= SPECIMEN SOURCE (test u8ixgXCzCOOokNR4VeApNG code = 3377) Ukl9siu6NpfPYuaCEoSXaz mTBunpQayk24fPQ6fO24XY 1xMVUrToI4DBKzssQ7Rru5 UQTjDXAztGXbL444b1dhu7 jttaWmyUW3SJOiMASqA6Ye QN7pYQPehPHqW5jiHGPgTD DoM7XnMP3iZZByMqr6VGU8 LTs6TAPtdJAtvlHdOyXuNM HzpYVenHT9UDXtJY0tsxaw TPmhOKkqUUXdtpQ6UPOzuZ ViF4LdHVKsHO3ebxwyALH2 LPviFTKyZUP2QpUkDBAbn0 Ukzua1DoBkoBYzDOaldQFx rhzbALnymyEjdSqekC6eBp AnFDgvOyPyJ2voHjYuiVDi Aj4wDDzjXRV0 GROSS DESCRIPTION (test d1eazHJmLEAkfUKkQlBpQI code = 3366) UwPXSbr9yyDXGhdBOzLwSw MzNcZnRuYmpcdWMxXGRlZm Ytk8fvp216mTZzs9sxWUOk ZfR0oSTiADButWRxO946GT AlXUirh4vam6DqARVdgSNr x6E2AVCNwiqnvXu7uRmwA0 7sh7P0AwcyI7qvSZXeGVCk U5VuFF9vRVLpXug4JVJ4HA M0YMQkKBQbB9VdOY9vWWPt mMAnFOi1n9hgrOayJPFuVZ L7w4pkCYhlweNeQD8gal8d eHl0t8dvveSoOBFbQYOzmC TOXECyQ8YpdDhzYy2qfOl7 zCdpMwliLFR7Nad7WW6kgg 46kre3tOsuBLClxktcHzW5 BZryPHPnmdqyVQt5PEqsMD JnbDcyMFxtYXJncjcyMFxt YXJndDcyMFxtYXJnYjcyMF otPTZhDGW8MSsca274VUJ8 BBlqr1iha6eepIAcAkl3GX OkQoGtPlihGTwum1Lhi7gp HYCvpi5rJBC1jWWwrQomc1 M3aEWfRZWuvODrgtVtHBKn PvD7PUteQY4azm71LPYhOL D8uq4huGCipUzyhzKvhUFq ZCesR3DoWBCjh997IUViC5 TtBMNys6N5qyNhKpPcBODr sQA7diM0BZPtVYf5kRJmww J4nlXstMEzK8vkxX18IzIm gOAsH8YrsW02YqZmwRTdB5 UwbI16HpBinTVqQ0YrwR01 AfLgfTWwMEUekMByAo7muO ClkLGcu2YdlPKqEQxoO76q k614NTKccaZvX3gamCAthu vziWVfirmhQNjtebN0OHPq XHBsYWluXGYxXGZzMjBcbG FuZzEwMzNcaGljaFxmMVxk EpThLSLhXVaoP9hxBvYvFd MyMCBSZWNlaXZlZCBmcmVz aCBsYWJlbGVkIHRoZSBwYX NcON69N5CphgBzUZjqUTAx ZFYduV8zSB21xQXcucQczz BeFhSeC2d2UBKzdUqvbBNm GNOdtsPrfa3ug29rWZAbBM slDP94LsJbedUdTjLdzpAe xQSjwWIkn2PwkWYvCFNsWO wgdHJhYmVjdWxhdGVkIGJv vzVtr1p3hWZoPBdgrqWlhG BqpkUily4gdAOozrankrVn vn33wCVfr4ixejIdfxWsk7 9qwCE6cMMpsYUccbCcR4kb OyOqqk2zTAFhHS5cNcNvN4 2xeQ7tA5QmDCLei5QjPCqj IX9xnR9kCkOnZAdkPRX2sC AorLWmIQXoXDedVFOwab50 XBjzc2jdDEYnGMZbK7SkIJ UqFHFxogKxAgqwtL5cGFHc eNQvd2WeuDM6vBGzMIWyC0 Eru92aOWHqELKhkEHrjXC4 JZTuMCDdQr0osL50robrdU XpXZTtdlHFUPI0eB9dCWCv LXPlrANmCNLsIYO3SFPerC hiTBHfa15hKEDhXCjlFA99 zzPuk7pnf5fbnxjnYWQoLX zikWAuE5L1xD9oMILlyhYO Mh2os5jnZWWhCSJnk0D5TC Tvm5M2JAvkFPAztGItNYFn mMNdTYSpB8TxiEbzobwjYJ SiBZeTGWvAF9HYUXtpJEJ4 MICROSCOPIC DESCRIPTION o4psjLCsQLJorLO3UaMiLW (test code = 3371) Tao9ajb5FgnIEhwRGcXWed rGRnldVoct80wTL3jE88SI 1gDPWyUvX8IHIdvfF0Uxj2 WQWxGMSntRUqC393j0jjx2 mxxfOvzUP4tHbaUQJppufp KoK0HTuyVHTdheomKYa2NW riEJWpwSY1SXUmvGIdS2Yr WHKiBT9uvuk1JPN7LKhjEH BvOdQ1JBUuoSReUKPtoKah MCvgj301NEJ5QlZlFLTgyb CujOhdwW5cHgKyNOUWIUKs e1VqUOPsQIVbds2= SPECIAL STUDIES (test t3wvzQEaFRSpn6yeBZZpfX code = 4806) FuZzEwMzNcZnRuYmpcdWMx VDjcfxVhTRvkw8LbO5EkEk AwMFxhbnNpXGRlZmxhbmcx SMDuOXZ2bkBeAWXrOHtsRZ TkIUgxSw2ffUQgjZcqZdMc LXMdr8osrbVJtlxazBp2q2 lcTQUiFwD4vEHhIIlfS6fw qzVbrKAjJ4UjpROwfJp1n1 jqGwWpRbC1iDQgMDbeU3av joWjhDWwPYNcCAc8tM77UC LvbJ5lzGLtVGgitpNgQpZ6 TFtgWAGhLsV9EJEheITrAK KcX3oxSLYiXCzuENAoRKhy mPJhDGM6cCyvt5L9hPMzpR YlmLueFkAaJsBcSoXEo7Sz IRg0lWyoM1JcDFCiPoU7kM QgUGFyYWdyYXBoIEZvbnQ7 eFqsszQoc71ldVDbGWHmYV FfZjDfpWgxQEVvQZWNg1Ki aAlnBUG3eVt1aSwuUbkyUW C0Byn1CI3bjq17sbt3tXmj ZIAwgscyDcV8TGlbRVXcra ymRCv0CWhjEURwmLP4BQOl oXHdB2YzDSGlII8vavg2VM P7QVkyVTWjXzP6VKHwjDXw KJUviXigQIped705WTB0Eu GdJH9dO4Ggl0G6dG4abQEm FRYlxXFkByViAHAuyo1atB UaVXmwk8KhDYU8nnT2hURw uWRcNSEuUY95Ztihs6WrPn vxx7IqL62fdLP0UMgss4is OU2tXfX4utPdVTaor2vjsD 7bZdJ5EUxuOM9zWH7iMJZp dC0eypalOYVhEqSzxdvwBO RdsQsiebJkUt8ofMpiHZR3 SIbuK1zrgZ4qJyI1TXzkQ3 tpnZ9dKJe1TPersWO5RZSp sQ9dHG4sbibmt8uhETgpHZ fbHXRpvzM1iiA0YRIxmZOa K4MmmA9yTPEiZV9xabaon1 dqXVO8JHzeXKKhDUT0AgUm KMTrb7Plpkw4MiNpb4UcdR QuCGvtB17ek535KHJhngWa R7ponVKosntnpOQlajwpEK laspI7QOKeTARmROamJLRi XGZzMjJcbGFuZzEwMzNcaG ljaFxmMVxkYmNoXGYxXGxv Y1qdLnTxJ4VhNXHoVcMmIW dqOXztqQKusKCuqWL4mL6f OY1lQHEsyTEcD0EiZJDphq VahNNcBQX6bOCtvKXrTY4a AExezWLhh5pbc7OxK2qgqT soaLX2UD3eYFAaXZMdSBvi a2UvxC7tRfwiyAMqttbbSD xmczIyXGxhbmcxMDMzXGhp L6olOoBdJKSkoRlbORuoa5 NoXGYxXGNmMlxmczIyXGx0 cmNoXHBhclxwYXJccGxhaW 8kJbPgWkBtMxdsUK3aTXWm I8jvlEFiYWUaCIVkK0wvUn JmbW6tlSxqTJzlZlHkPlJd QsBWg973dg3pMIUmhZQtxl CWzDHjnM5iNGaqIOkaQPtu vHHbUYnwo3raOXLpt8y9iH XwTRYnrfUhc7ijQVtwssAx NRZmlAGhfEKbLTIzf37cFZ dulTylxJksYLBgr3RtlKkf b1HbEfApDAllq9HzU41zzU JvbCBzbGlkZXMgcnVuIGFs b39hp4xtPIKcWsS7lSHezG H9tVBquDYkg5HyqGrtBDZx g4ioGCVghz4qeyqsaXGyt3 JfbN0wqdllROahtZTqutYm UIKcr5r6tFJoCJEfPUUgPR iutRn1EJIjy259bq6fnmC4 rJVwJPB0NMelGPShOMZxfv UgZXZhbHVhdGVkXHBsYWlu XGYxXGZzMjJcbGFuZzEwMz NcaGljaFxmMVxkYmNoXGYx TMwtK7orAnWlU1BxYIVsFr AgoBZqY3qslVJjYBWdTAif XGYxXGZzMjJcbGFuZzEwMz NcaGljaFxmMVxkYmNoXGYx RYkgD6slXnDaP8JpLEZvSh IgIFxwbGFpblxmMVxmczIy LVfonkhdUCGxCThhK5poMs KwPOEgzEnnUUela5OzYZIx VQSaMvknsaXkEQd2ybZmXU BhclxwbGFpblxmMVxmczIy HLmcxlzrYIFsXEvcU3gaLb GkYMPcqFnlHNhyv0KxJUDr XGNmMlxmczIyIEltbXVub2 elg0UfJ2mngYzvqOW7OEZj T7rjrSBgdAU5BCZ5iX3sQP ycnbXyVSHhz0TzKMLyXMNx EhN1cF8zTBM9KhXUhGmeTO BsYWluXGYxXGZzMjJcbGFu ZzEwMzNcaGljaFxmMVxkYm ZbBNElBQjsL4ihCjWlX2Jq DLOuObWmqYifGGjtWFk9Mv xwbGFpblxmMVxmczIyXGxh jkdoZSQpRWerH9ywTpInSI NrpYjdJFerx5YrUSIuCUVv MlxmczIyIHMgTWVkaWNhbC MPCC95HLUoZALfzVmpxU2x gSPFGBQuskD2m2D6FOanZY DfMJe9TOercwRxLCDmxJ5x ZOCcHT4ySIc0vzIgSQKxh1 KnCY3uBZZtvQOcVHU6BJJv w0JeU8Scj5ZnNPUeGXTlsp 0rdtAfNaSEpNMtJKWpbp93 AKZsCC1kE4rzYIRfSMBfhh FplZMjl0JlIOTnxBM9zNOu RE7AQzVWj66xDXTbACIKdb WjXOUzxXvivOW2stU0gK3x LiBUaGUgRkRBIGhhcyBkZX Mlus6jszLaJVNgIVNzm6Jb jYPsuTEmzsDmF6Ooq7FwER Neqx15FGwpoYAwot14FA0b C6Kdy2JzfG8hSUqlOSNzj4 ZajZLifBLkEFNti4YwY3qq zjxgWImcuERviA7fULMcCJ n5YQHhi3TnXLJou9TzHtXw yhZkVXQtOWDcWVOeuQ41MM Z4wLxevMlvarSxWW6hAKMv zwFoQAEdWUDeaH4gCNorsr FyCTZoanX8n2A9QUdcUQSy qzPgPfhiHBY1sxNgwfU7uV FhR1msryrtEAxqPDRkc5Ua tH6biQBNnSDst6ErnICrxM GMpJElOX0benEcRK1oBPU3 ODggKENMSUEtODgpIGFzIH H4AUpwMkevCJV0heQwUWKt z7MvDOhuV9mfL27jaTtbeL z5aMDclPsprYEqsBAhHWUh vzZ8r8F4CEDta1MpkgdbBW BsYWluXGYyXGZzMjJcbGFu ZzEwMzNcaGljaFxmMlxkYm XmOCXhJQwnH3afWkLrVyGa EuvoQOT5mG== Gross assessment was [facility] performed at ([facility], = 2777) Department of Pathology, [address] [place] [address], Technical component was [facility] performed at ([facility], = 2778) Department of Pathology, [address] [place] [address], Professional component [facility] was performed at ([facility], code = 2779) Department of Pathology, [address] [place] [address], [facility] Hospital[facility] [id number] 12:20:52Surgical Pathology Report Case: [id number] Authorizing Provider: Star Cloud DPM Collected: 03/02/2021 03:11 PM Ordering Location: [address] Received: 03/02/2021 04:39 PM Service Pathologist: Liz Branham MD Specimen: Bone, Right achilles tendon/bone fragment for ID A. BONE, RIGHT ACHILLES TENDON, DEBRIDEMENT: - ACUTE OSTEOMYELITIS WITH FIBRINOPURULENT EXUDATE. Signing Pathologist Direct Phone Line: [phone] signed by Liz Branham MD on 03/09/2021 at 12:20 [id number] Acute hematogenous osteomyelitis of right foot BoneReceived fresh labeled the patient's name, accession number and "right Achilles tendon/bone fragment" are 3 fragments of gardner-red, trabeculated bone with adherent green-black, necrotic skin and soft tissue ranging from 1.5-2.0 cm in greatest dimension. The cut surface is gardner-yellow, trabeculated and firm. Director Of Land sections are submitted as follows:Section cmtsU2-H2-kyxlmi bone fragments following decalcificationA6-skin and soft tissuePilar LEW Caraballo HT (ASCP)Performed.The interpretation of this case included the use of immunohistochemistry or special stains.Control Slides Examined: In-house known positive controls were evaluated along with the test tissue. These control slides run alongside of the patients sample show appropriate staining. Internal positive and negative controls when available are evaluated Immunohistochemistry technical testing was performed at [facility], Pathology Laboratory where it was developed and its performance characteristics were determined. It has not been cleared or approved by the U.S. Food and Drug Administration. The FDA has determined that such clearance or approval is not n ecessary. The test is used for clinical purposes. It should not be regarded as investigational or for research. This laboratory is certified under the Clinical Laboratory Improvement Amendments of 1988(CLIA-88) as qualified to perform high complexity clinical laboratory testing.[facility], Department of Pathology, [address] [place] [address], [facility], [facility], [address] [place] [address], [facility]yrpfqK[facility], Department of Pathology, [address] [place] [address], LWRG-GLUCOSE [id number] 11:21:42 Test Item Value Reference Range Interpretation Comments POC-GLUCOSE METER 102 mg/dL 70-110 : TESTED A T [facility] 6720 (BEAKER) (test code = [facility], 1538) 34457: Wildlife Refuge Manager/Techni estefani ID = [id number] for Indy Stevenson POCT-GLUCOSE [id number] 07:24:40 Test Item Value Reference Range Interpretation Comments POC-GLUCOSE METER 69 mg/dL 70-110 L : TESTED A T [facility] 6720 (BEAKER) (test code = [facility], 1538) 40305: Wildlife Refuge Manager/Techni estefani ID = [id number] for Indy Hodgson BASIC METABOLIC [id number] 07:05:47 Test Item Value Reference Range Interpretation [...] S NOT APPLICABLE FOR DIALYSIS PATIEN TS. Wildlife Refuge Manager ID - JAQUELINE MPOCT-GLUCOSE [id number] 21:01:43 Test Item Value Reference Range Interpretation Comments POC-GLUCOSE METER 104 mg/dL 70-110 : TESTED A T [facility] 6720 (BEAKER) (test code = [facility], 1538) 81282: Wildlife Refuge Manager/Techni estefani ID = [id number] for KAREN JULIAN POCT-GLUCOSE [id number] 15:35:38 Test Item Value Reference Range Interpretation Comments POC-GLUCOSE METER 128 mg/dL 70-110 H : TESTED A T [facility] 6720 (BEAKER) (test code = [facility], 1538) 10330: Wildlife Refuge Manager/Techni estefani ID = [id number] for Jewels Tavarez Anaerobic [id number] 14:26:15 Test Item Value Reference Range Interpretation Comments Result (test code = No anaerobes isolated 6463-4) [facility] [id number] 14:26:15 Test Item Value Reference Range Interpretation Comments Result (test code = No anaerobes isolated 6463-4) [facility] [id number] 14:26:15 Test Item Value Reference Range Interpretation Comments CULTURE (BEAKER) (test No anaerobes isolated code = 1095) ANAEROBIC [id number] 14:22:02 Test Item Value Reference Range Interpretation Comments CULTURE (BEAKER) (test No anaerobes isolated code = 1095) [id number] 12:05:50 Test Item Value Reference Range Interpretation Comments PHOSPHORUS (BEAKER) (test code = 6.0 mg/dL 2.3-4.7 H 604) Wildlife Refuge Manager ID - DANITZA LPOCT-GLUCOSE [id number] 11:25:46 Test Item Value Reference Range Interpretation Comments POC-GLUCOSE METER 93 mg/dL 70-110 : TESTED A T [facility] 6720 (BEAKER) (test code = [facility], 1538) 66684: Wildlife Refuge Manager/Techni estefani ID = [id number] for Jewels Davies POCT-GLUCOSE [id number] 07:29:21 Test Item Value Reference Range Interpretation Comments POC-GLUCOSE METER 84 mg/dL 70-110 : TESTED A T [facility] 6720 (BEAKER) (test code = [facility], 1538) 27401: Wildlife Refuge Manager/Techni estefani ID = [id number] for Jewels Davies BASIC METABOLIC [id number] 05:48:13 Test Item Value Reference Range Interpretation [...] S NOT APPLICABLE FOR DIALYSIS PATIEN TS. Wildlife Refuge Manager ID - DANITZA LVANCOMYCIN LEVEL, [id number] 05:13:36 Test Item Value Reference Range Interpretation Comments VANCOMYCIN RANDOM (BEAKER) (test 18.4 ug/mL code = 523) Reference Range: No NormalsOperator ID - DANITZA LPOCT-GLUCOSE [id number] 21:23:17 Test Item Value Reference Range Interpretation Comments POC-GLUCOSE METER 118 mg/dL 70-110 H : TESTED A T [facility] 6720 (BEAKER) (test code = [facility], 1538) 61809: Wildlife Refuge Manager/Techni estefani ID = [id number] for ESTEBAN CHANGA, ORION POCT-GLUCOSE [id number] 16:22:46 Test Item Value Reference Range Interpretation Comments POC-GLUCOSE METER 94 mg/dL 70-110 : TESTED A T [facility] 6720 (BEAKER) (test code = [facility], 1538) 31750: Wildlife Refuge Manager/Techni estefani ID = [id number] for KELSI PSON, ANKIT POCT-GLUCOSE [id number] 12:19:51 Test Item Value Reference Range Interpretation Comments POC-GLUCOSE METER 97 mg/dL 70-110 : TESTED A T [facility] 6720 (BEAKER) (test code = [facility], 1538) 99268: Wildlife Refuge Manager/Techni estefani ID = [id number] for KELSI PSON, ANKIT POCT-GLUCOSE [id number] 08:48:25 Test Item Value Reference Range Interpretation Comments POC-GLUCOSE METER 70 mg/dL 70-110 : TESTED A T [facility] 6720 (BEAKER) (test code = [facility] [place], 1538) 55647: Wildlife Refuge Manager/Techni estefani ID = [id number] for ANKIT SMITH CBC W/PLT COUNT & AUTO [id number] 06:55:44 Test Item Value Reference Range Interpretation [...] 0-1 PERCENT (BEAKER) (test code = 2801) Vancomycin level, [id number] 06:02:23 Test Item Value Reference Range Interpretation Comments Vancomycin Tr (test code = 19.2 ug/mL 10.0-20.0 4092-3) [place]LL (test code = MIT[place]LL) Wildlife Refuge Manager ID - JAQUELINE M Lab Interpretation (test Normal code = 93883-9) [facility], [id number] 06:02:23 Test Item Value Reference Range Interpretation Comments Vancomycin Tr (test code = 19.2 ug/mL 10.0-20.0 4092-3) [place]LL (test code = MITCHELL) Wildlife Refuge Manager ID - JAQUELINE M Lab Interpretation (test Normal code = 21743-7) [facility] Hospital[facility] LEVEL, [id number] 06:02:23 Test Item Value Reference Range Interpretation Comments VANCOMYCIN TROUGH (BEAKER) (test 19.2 ug/mL 10.0-20.0 code = 522) Wildlife Refuge Manager ID - JAQUELINE MPOCT-GLUCOSE [id number] 21:00:17 Test Item Value Reference Range Interpretation Comments POC-GLUCOSE METER 79 mg/dL 70-110 : TESTED A T [facility] 6720 (BEAKER) (test code = [facility], 153) 99012: Wildlife Refuge Manager/Techni estefani ID = [id number] for GE MARGARET MorelandA POCT-GLUCOSE [id number] 16:13:51 Test Item Value Reference Range Interpretation Comments POC-GLUCOSE METER 112 mg/dL 70-110 H : TESTED A T [facility] 6720 (BEAKER) (test code = [facility], 153) 06376: Wildlife Refuge Manager/Techni estefani ID = [id number] for ANJELICAESTEBANBenjieJORDANNII POCT-GLUCOSE [id number] 12:21:34 Test Item Value Reference Range Interpretation Comments POC-GLUCOSE METER 84 mg/dL 70-110 : TESTED A T [facility] 6720 (BEAKER) (test code = DASIA [facility], 1538) 53238: Wildlife Refuge Manager/Techni estefani ID = [id number] for NII MALONE POCT-GLUCOSE [id number] 08:29:43 Test Item Value Reference Range Interpretation Comments POC-GLUCOSE METER 84 mg/dL 70-110 : TESTED A T [facility] 6720 (BEAKER) (test code = DASIA Garcia [facility], 1538) 10832: Wildlife Refuge Manager/Techni estefani ID = [id number] for NII MALONE BASIC METABOLIC [id number] 07:10:22 Test Item Value Reference Range Interpretation [...] S NOT APPLICABLE FOR DIALYSIS PATIEN TS. Wildlife Refuge Manager ID - PIAYA LCBC W/PLT COUNT & AUTO [id number] 06:40:33 Test Item Value Reference Range Interpretation [...] PERCENT (BEAKER) (test code = 2801) POCT-GLUCOSE [id number] 21:18:36 Test Item Value Reference Range Interpretation Comments POC-GLUCOSE METER 110 mg/dL 70-110 : TESTED A T [facility] 6720 (BEAKER) (test code = [facility] [place], 1538) 26427: Wildlife Refuge Manager/Techni estefani ID = [id number] for Ramonita Prado POCT-GLUCOSE [id number] 16:23:36 Test Item Value Reference Range Interpretation Comments POC-GLUCOSE METER 138 mg/dL 70-110 H : TESTED A T [facility] 6720 (NOE) (test code = [facility], 1538) 40228: Wildlife Refuge Manager/Techni estefani ID = [id number] for Aure Teran SARS-COV2/RT-PCR ([facility])2021-03-05 11:06:00 Test Item Value Reference Range Interpretation Comments SARS-COV2/RT-PCR (test code = Negative Negative 7421223) Negative result for this test determines that [...] 564(g) of the Act.Testing was performed using [employer] SARS-CoV-2 assay.Fact Sheet for Healthcare Providers:https://www.MeetCute.Easydiagnosis/ari/RT SARS-CoV-2 HCP Fact Sheet 51- 972475.pdfFact Sheet for Healthcare Patients:https://www.MeetCute.Easydiagnosis/ari/RT SARS-CoV-2 Patient Fact Sheet EN 51-266099A3.pdfSURGICALLY OBTAINED CULTURE + GRAM [id number] 09:04:09 Test Item Value Reference Interpretation Comments [...] gram positive (BEAKER) (test code rods = 259671) GRAM STAIN RESULT <1+ gram positive (BEAKER) (test code cocci in pairs = 080514) SURGICALLY OBTAINED CULTURE + GRAM [id number] 09:01:34 Test Item Value Reference Interpretation Comments [...] gram positive (BEAKER) (test code rods = 303125) GRAM STAIN RESULT 1+ gram positive (BEAKER) (test code cocci in chains = 924015) and pairs RAD, FOOT, 2 VIEWS, [id number] 06:55:00Is this procedure to be performed with weight bearing?->Non-Weight BearingReason for exam:->post op revision of post TMA, bone resection psoterior calceaus and forefoot.Should this be performed at the bedside?->Yes [facility] : 1960 Sex: MFINAL REPORTPATIENT ID: [id number] RAD, FOOT, 2 VIEWS, RIGHT INDICATION: post op revision of post TMA, bone resection psoterior calceaus and forefoot. COMPARISON: February 29, 2020 TECHNIQUE: Limited lateral and oblique views of the right foot. 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 Osseous resection posterior to the calcaneus is present with bandage wound. Stab le dense arterial calcifications. No additional osseous change. Signed: JR Cuello Robert MDReport Verified Date/Time: 03/05/2021 06:55:23 Reading Location: [facility] Radiology Reading Room CBC W/PLT COUNT & AUTO [id number] 04:59:49 Test Item Value Reference Range Interpretation [...] (BEAKER) (test code = 2801) BASIC METABOLIC [id number] 04:59:02 Test Item Value Reference Range Interpretation [...] S NOT APPLICABLE FOR DIALYSIS PATIEN TS. Wildlife Refuge Manager ID - PIZAYRA LVANCOMYCIN LEVEL, [id number] 04:48:13 Test Item Value Reference Range Interpretation Comments VANCOMYCIN RANDOM (BEAKER) (test 15.8 ug/mL code = 523) Reference Range: No NormalsOperator ID - PIAYA LPOCT-GLUCOSE [id number] 04:08:20 Test Item Value Reference Range Interpretation Comments POC-GLUCOSE METER 89 mg/dL 70-110 : TESTED A T [facility] 6720 (BEAKER) (test code = [place], 1538) [address]2313: Wildlife Refuge Manager/Techni estefani ID = [id number] for GRAH AM, KAREN BASIC METABOLIC [id number] 13:43:25 Test Item Value Reference Range Interpretation Comments SODIUM (BEAKER) 135 meq/L 136-145 L (test code = 381) POTASSIUM (BEAKER) 5.3 meq/L 3.5-5.1 H (test code = 379) CHLORIDE (BEAKER) 97 meq/L 98-107 L (test code = 382) CO2 (BEAKER) (test 24 meq/L 22-29 code = 355) BLOOD UREA NITROGEN 53 [...] S NOT APPLICABLE FOR DIALYSIS PATIEN TS. Wildlife Refuge Manager ID - DANITZA LVANCOMYCIN LEVEL, [id number] 13:26:53 Test Item Value Reference Range Interpretation Comments VANCOMYCIN RANDOM (BEAKER) (test 16.5 ug/mL code = 523) Reference Range: No NormalsOperator ID - PIAYA LPOCT-GLUCOSE [id number] 11:46:40 Test Item Value Reference Range Interpretation Comments POC-GLUCOSE METER 89 mg/dL 70-110 : TESTED A T [facility] 6720 (BEAKER) (test code = [facility], 1538) 68843: Wildlife Refuge Manager/Techni estefani ID = [id number] for Indy Hodgson POCT-GLUCOSE [id number] 09:19:21 Test Item Value Reference Range Interpretation Comments POC-GLUCOSE METER 85 mg/dL 70-110 : TESTED A T [facility] 6720 (BEAKER) (test code = [facility], 1538) 91298: Wildlife Refuge Manager/Techni estefani ID = [id number] for Cornel venegas, Indy Blood Culture - Routine (Left Venipuncture)2021-03-04 02:00:49 Test Item Value Reference Range Interpretation Comments Result (test code = No growth in 5 days 6463-4) [facility]2021-03-04 02:00:49 Test Item Value Reference Range Interpretation Comments Result (test code = No growth in 5 days 6463-4) [id number] 02:00:49 Test Item Value Reference Range Interpretation Comments CULTURE (BEAKER) (test No growth in 5 days code = 1095) BLOOD [id number] 02:00:48 Test Item Value Reference Range Interpretation Comments CULTURE (BEAKER) (test No growth in 5 days code = 1095) POCT-GLUCOSE [id number] 16:43:34 Test Item Value Reference Range Interpretation Comments POC-GLUCOSE METER 121 mg/dL 70-110 H : TESTED A T [facility] 6720 (BEAKER) (test code = [facility], 1538) 30639: Wildlife Refuge Manager/Techni estefani ID = [id number] for Jewels Tavarez POCT-GLUCOSE [id number] 11:35:53 Test Item Value Reference Range Interpretation Comments POC-GLUCOSE METER 146 mg/dL 70-110 H : TESTED A T [facility] 6720 (BEAKER) (test code = [facility], 1538) 05159: Wildlife Refuge Manager/Techni estefani ID = [id number] for Gary prasad, Jewels BASIC METABOLIC [id number] 10:24:11 Test Item Value Reference Range Interpretation [...] S NOT APPLICABLE FOR DIALYSIS PATIEN TS. Wildlife Refuge Manager ID - PIAYA LPOCT-GLUCOSE [id number] 07:12:16 Test Item Value Reference Range Interpretation Comments POC-GLUCOSE METER 100 mg/dL 70-110 : TESTED A T [facility] 6720 (BEAKER) (test code = [place] [place], 1538) 99334: Wildlife Refuge Manager/Techni estefani ID = [id number] for GR KAREN NINA SPIN/CONCENTRATION [id number] 06:33:09 Test Item Value Reference Range Interpretation Comments Concentration charged (test code = Done 0957) [facility] [id number] 06:33:09 Test Item Value Reference Range Interpretation Comments Concentration charged (test code = Done 2757) [facility] [id number] 06:33:09 Test Item Value Reference Range Interpretation Comments CONCENTRATION CHARGED (BEAKER) (test Done code = 7367) CBC W/PLT COUNT & AUTO [id number] 04:14:18 Test Item Value Reference Range Interpretation [...] PERCENT (BEAKER) (test code = 2801) POCT-GLUCOSE [id number] 23:58:47 Test Item Value Reference Range Interpretation Comments POC-GLUCOSE METER 154 mg/dL 70-110 H : TESTED A T [facility] 6720 (BEAKER) (test code = DASIA Garcia [place], 1538) 19210: Wildlife Refuge Manager/Techni estefani ID = [id number] for KAREN JULIAN [id number] 18:10:11 Test Item Value Reference Range Interpretation Comments Ferritin (test code = 776.18 ng/mL 5.00-275.00 H 2276-4) MITCHELL (test code = MITCHELL) Wildlife Refuge Manager ID - [id number] Lab Interpretation (test Abnormal code = 65158-3) [facility] HospitalFerritin2021-[facility] 18:10:11 Test Item Value Reference Range Interpretation Comments Ferritin (test code = 776.18 ng/mL 5.00-275.00 H 2276-4) MITCHELL (test code = MITCHELL) Wildlife Refuge Manager ID - FSE Lab Interpretation (test Abnormal code = 08266-8) [facility] HospitalFERRITIN2021-12-27 18:10:11 Test Item Value Reference Range Interpretation Comments FERRITIN (BEAKER) (test code = 776.18 ng/mL 5.00-275.00 H 361) Wildlife Refuge Manager ID - FSEIron, TIBC, % sat. (without ferritin)2021-03-02 17:49:09 Test Item Value Reference Range Interpretation Comments Iron (test code = 2498-4) 33.0 ug/dL 40.0-160.0 L TIBC (test code = 2500-7) 180 ug/dL 250-450 L Iron % Saturation (test 18 % 20-55 L code = 2502-3) MITCHELL (test code = MITCHELL) Wildlife Refuge Manager ID - FSE Lab Interpretation (test Abnormal code = 30569-7) [facility] HospitalIron, TIBC, % sat. (without ferritin)2021-03-02 17:49:09 Test Item Value Reference Range Interpretation Comments Iron (test code = 2498-4) 33.0 ug/dL 40.0-160.0 L TIBC (test code = 2500-7) 180 ug/dL 250-450 L Iron % Saturation (test 18 % 20-55 L code = 2502-3) MITCHELL (test code = MITCHELL) Wildlife Refuge Manager ID - FSE Lab Interpretation (test Abnormal code = 38829-0) [facility] HospitalIRON, TIBC, % SAT. (WITHOUT FERRITIN)2021-03-02 17:49:09 Test Item Value Reference Range Interpretation Comments IRON (BEAKER) (test code = 547) 33.0 ug/dL 40.0-160.0 L TOTAL IRON BINDING CAPACITY 180 ug/dL 250-450 L (BEAKER) (test code = 769) IRON % SATURATION (2) (BEAKER) 18 % 20-55 L (test code = 2590) Wildlife Refuge Manager ID - MNIAKEAVINYWF1807-02-86 17:46:44 Test Item Value Reference Range Interpretation Comments PHOSPHORUS (BEAKER) (test code = 4.4 mg/dL 2.3-4.7 604) Wildlife Refuge Manager ID - FSEPOCT-GLUCOSE [id number] 16:19:13 Test Item Value Reference Range Interpretation Comments POC-GLUCOSE METER 113 mg/dL 70-110 H : TESTED A T [facility] 6720 (BEAKER) (test code = [facility], 1538) 67649: Wildlife Refuge Manager/Techni estefani ID = [id number] for Nelly Traore POCT-GLUCOSE [id number] 11:25:41 Test Item Value Reference Range Interpretation Comments POC-GLUCOSE METER 85 mg/dL 70-110 : TESTED A T [facility] 6720 (BEAKER) (test code = [facility], 1538) 42215: Wildlife Refuge Manager/Techni estefani ID = [id number] for Avery Mendoza CBC W/PLT COUNT & AUTO [id number] 08:28:03 Test Item Value Reference Range Interpretation [...] (BEAKER) (test code = 2801) BASIC METABOLIC [id number] 05:41:27 Test Item Value Reference Range Interpretation [...] S NOT APPLICABLE FOR DIALYSIS PATIEN TS. Wildlife Refuge Manager ID - DBPOCT-GLUCOSE [id number] 21:49:33 Test Item Value Reference Range Interpretation Comments POC-GLUCOSE METER 169 mg/dL 70-110 H : TESTED A T [facility] 6720 (NOE) (test code = [facility] [place], 1538) 12838: Wildlife Refuge Manager/Techni estefani ID = [id number] for Ramonita Prado RAD, CHEST, 1 VIEW, NON [id number] 18:21:00Reason for exam:->preopShould this be performed at the bedside?->Yes [facility] G[facility]JALVA : 1960 Sex: MFINAL REPORTPATIENT ID: [id number] TECHNIQUE: Frontal view of the chest. INDICATION: [...] MDReport Verified Date/Time: 03/01/2021 18:21:46 Reading Location: [facility] C013Y ND Body Reading Room POCT-GLUCOSE [id number] 16:59:29 Test Item Value Reference Range Interpretation Comments POC-GLUCOSE METER 109 mg/dL 70-110 : TESTED A T [facility] 6720 (BEAKER) (test code = [facility], 1538) 18463: Wildlife Refuge Manager/Techni estefani ID = [id number] for Indy Stevenson POCT-GLUCOSE [id number] 11:51:04 Test Item Value Reference Range Interpretation Comments POC-GLUCOSE METER 103 mg/dL 70-110 : TESTED A T [facility] 6720 (BEAKER) (test code = [facility], 1538) 14777: Wildlife Refuge Manager/Techni estefani ID = [id number] for Indy Stevenson BASIC METABOLIC [id number] 10:02:41 Test Item Value Reference Range Interpretation [...] S NOT APPLICABLE FOR DIALYSIS PATIEN TS. Wildlife Refuge Manager ID - DBPOCT-GLUCOSE [id number] 08:04:13 Test Item Value Reference Range Interpretation Comments POC-GLUCOSE METER 98 mg/dL 70-110 : TESTED A T [facility] 6720 (BEAKER) (test code = [facility] [place], 1538) 81675: Wildlife Refuge Manager/Techni estefani ID = [id number] for Indy Hodgson BASIC METABOLIC [id number] 06:12:22 Test Item Value Reference Range Interpretation [...] S NOT APPLICABLE FOR DIALYSIS PATIEN TS. Wildlife Refuge Manager ID - DBCBC W/PLT COUNT & AUTO [id number] 04:41:19 Test Item Value Reference Range Interpretation [...] PERCENT (BEAKER) (test code = 2801) POCT-GLUCOSE [id number] 21:22:14 Test Item Value Reference Range Interpretation Comments POC-GLUCOSE METER 133 mg/dL 70-110 H : TESTED A T [facility] 6720 (BEAKER) (test code = [facility], 153) 38922: Wildlife Refuge Manager/Techni estefani ID = [id number] for Marilin hall Ramonita POCT-GLUCOSE [id number] 15:53:46 Test Item Value Reference Range Interpretation Comments POC-GLUCOSE METER 196 mg/dL 70-110 H : TESTED A T [facility] 6720 (BEAKER) (test code = [facility], 1538) 11726: Wildlife Refuge Manager/Techni estefani ID = [id number] for Indy Stevenson POCT-GLUCOSE [id number] 12:54:21 Test Item Value Reference Range Interpretation Comments POC-GLUCOSE METER 176 mg/dL 70-110 H : TESTED A T [facility] 6720 (NOE) (test code = DAS[facility] Garcia [facility], 1538) 01355: Wildlife Refuge Manager/Techni estefani ID = [id number] for Indy Stevenson Arterial Doppler Leg, [id number] 12:06:18Ejection FractionSLEH ECHO HEARTLAB MKCKESSON [facility] HospitalArterial Doppler Leg, Right 2021-02-28 12:06:18Ejection FractionSLEH ECHO HEARTLAB MKCKWhite Memorial Medical CenterPOCT-GLUCOSE [id number] 08:27:05 Test Item Value Reference Range Interpretation Comments POC-GLUCOSE METER 119 mg/dL 70-110 H : [facility] T [facility] 6720 [facility] (test code = DASIA Garcia [facility], 1538) 63812: Wildlife Refuge Manager/Techni estefani ID = [id number] for Indy Stevenson RAD, FOOT, 2 VIEWS, [id number] 07:46:00Is this procedure to be performed with weight bearing?->Non-Weight BearingReason for exam:->chronic osteo of right footJOANN KAISER [facility]OS[facility]ITALName: DAY[facility] GRIJALVA : 1960 Sex: MFINAL REPORTPATIENT ID: [id number] Radiograph of the right foot Reason for [...] Hutson Verified Date/Time: 02/28/2021 07:46:26 Reading Location: [address] Ortho Consult Reading Room POCT-GLUCOSE [id number] 23:55:52 Test Item Value Reference Range Interpretation Comments POC-GLUCOSE METER 129 mg/dL 70-110 H : TESTED A T [facility] 6720 ([employer]) (test code = [place], 1538) 73281: Wildlife Refuge Manager/Techni estefani ID = [id number] for ON UOHA, ANTONY VANCOMYCIN LEVEL, [id number] 23:14:57 Test Item Value Reference Range Interpretation Comments VANCOMYCIN RANDOM (BEAKER) (test 20.5 ug/mL code = 523) Reference Range: No NormalsOperator ID - BASSEM WSARS-COV2/RT-PCR ([facility])2021-02-27 22:54:17 Test Item Value Reference Range Interpretation Comments SARS-COV2/RT-PCR (test Negative Not Detected, Negative, code = 8765592) See external report for linked test SARS-COV-2 PERFORMING LAB [facility] KEELY (test code = 0672972) Negative result for this test determines that [...] of the Act.Fact Sheet for Healthcare Prov iders:https://www.[employer]/sites/default/files/product/documents/Fact_Sheet_HC _Dctzpprjj_Pqbb_XZAZ-OcP-3.pdfFact Sheet for Healthcare Patients:https://www.[employer]/sites/default/files/product/docume nts/Filb_Fdxor_Nfnrhgzd_Efjd_PFMV-CcI-0.pdfPerforming Laboratory:[facility] [facility], [place] [address]Omsvvazet B surface [id number] 21:03:43 Test Item Value Reference Range Interpretation Comments Hepatitis B surface Nonreactive Nonreactive antigen (test code = 5195-3) MITCHELL (test code = MITCHELL) Specimen is considered negative for HBsAg. Lab Interpretation (test Normal code = 32282-3) [facility] HospitalHepatinorth [facility] B surface [id number] 21:03:43 Test Item Value Reference Range Interpretation Comments Hepatitis B surface Nonreactive Nonreactive antigen (test code = 5195-3) MITCHELL (test code = MITCHELL) Specimen is considered negative for HBsAg. Lab Interpretation (test Normal code = 25733-8) [facility]HEPATICOU[facility] B SURFACE [id number] 21:03:43 Test Item Value Reference Range Interpretation Comments HEPATITIS B SURFACE ANTIGEN (2) Nonreactive Nonreactive (BEAKER) (test code = 2585) Specimen is considered negative for HBsAg.POCT-GLUCOSE [id number] 12:44:24 Test Item Value Reference Range Interpretation Comments POC-GLUCOSE METER 127 mg/dL 70-110 H : TESTED A T [facility] 6720 (BEAKER) (test code = [facility] [place], 1538) 39105: Wildlife Refuge Manager/Techni estefani ID = [id number] for Indy Stevenson POCT-GLUCOSE [id number] 09:35:05 Test Item Value Reference Range Interpretation Comments POC-GLUCOSE METER 102 mg/dL 70-110 : TESTED A T [facility] 6720 (NADJAAKER) (test code = [facility] [place], 1538) 68860: Wildlife Refuge Manager/Techni estefani ID = [id number] for Indy Stevenson Comprehensive metabolic [id number] 00:02:18 Test Item Value Reference Range Interpretation Comments Protein, Total (test 8.4 See_Comment H [Autom ated code = 2885-2) message] The system which generated this result transmit doris reference range : 6.0 - 8.3 gm/dL . The reference range was not u sed to interpret th is result as normal/abnormal . Albumin (test code = 3.6 g/dL 3.5-5.0 22341-8) Alkaline Phosphatase 114 U/L 40-150 (test code = 6768-6) Total Bilirubin (test 0.4 mg/dL 0.2-1.2 code = 1975-2) Sodium (test code = 136 meq/L 871-202 4615-2) Potassium (test code 4.8 meq/L 3.5-5.1 = 2823-3) Chloride (test code = 98 meq/L 98-107 2075-0) CO2 (test code = 19 meq/L 22-29 L 8-9) BUN (test code = 83 mg/dL 7-21 H 3094-0) Creatinine (test code 10.13 mg/dL 0.57-1.25 H = 2160-0) Glucose (test code = 133 mg/dL 70-105 H 2345-7) Calcium (test code = 8.5 mg/dL 8.4-10.2 87947-2) AST (test code = 16 U/L 5-34 1920-8) ALT (test code = 29 U/L 6-55 1742-6) EGFR (test code = 5 mL/min/1.73 [place] [address]-3) NOT ACCURATE CREATININE CLEARANCE IN PREDICTING GLOMERULAR FILTRATION RATE . ESTIMATED GFR I S NOT APPLICABLE FOR DIALYSIS PATIEN TS. MITCHELL (test code = MITCHELL) Wildlife Refuge Manager ID - PIAYA L Lab Interpretation Abnormal (test code = 87371-4) [facility] HospitalComprehensive metabolic [id number] 00:02:18 Test Item Value Reference Range Interpretation Comments Protein, Total (test 8.4 See_Comment H [Autom ated code = 2885-2) message] The system which generated this result transmit doris reference range : 6.0 - 8.3 gm/dL . The reference range was not u sed to interpret th is result as normal/abnormal . Albumin (test code = 3.6 g/dL 3.5-5.0 49832-8) Alkaline Phosphatase 114 U/L 40-150 (test code = 6768-6) Total Bilirubin (test 0.4 mg/dL 0.2-1.2 code = 1975-2) Sodium (test code = 136 meq/L 332-835 3421-2) Potassium (test code 4.8 meq/L 3.5-5.1 = 2823-3) Chloride (test code = 98 meq/L 98-107 2075-0) CO2 (test code = 19 meq/L 22-29 L 2028-9) BUN (test code = 83 mg/dL 7-21 H 3094-0) Creatinine (test code 10.13 mg/dL 0.57-1.25 H = 2160-0) Glucose (test code = 133 mg/dL 70-105 H 2345-7) Calcium (test code = 8.5 mg/dL 8.4-10.2 86168-8) AST (test code = 16 U/L 5-34 1920-8) ALT (test code = 29 U/L 6-55 1742-6) EGFR (test code = 5 mL/min/1.[place] [address]-7) NOT ACCURATE CREATININE CLEARANCE IN PREDICTING GLOMERULAR FILTRATION RATE . ESTIMATED GFR I S NOT APPLICABLE FOR DIALYSIS PATIEN TS. MITCHELL (test code = MITCHELL) Wildlife Refuge Manager ID - PIAYA L Lab Interpretation Abnormal (test code = 46297-7) [facility] HospitalCOMPREHENSIVE METABOLIC [id number] 00:02:18 Test Item Value Reference Range Interpretation [...] S NOT APPLICABLE FOR DIALYSIS PATIEN TS. Wildlife Refuge Manager SAVANNA BOSCH LC-Reactive [id number] 00:01:52 Test Item Value Reference Range Interpretation Comments CRP (test code = 676) 10.77 mg/dL 0.00-0.50 H MITCHELL (test code = MITCHELL) Wildlife Refuge Manager SAVANNA Wilson Lab Interpretation (test Abnormal code = 04485-2) [facility] HospitalC-Reactive [id number] 00:01:52 Test Item Value Reference Range Interpretation Comments CRP (test code = 676) 10.77 mg/dL 0.00-0.50 H MITCHELL (test code = MITCHELL) Wildlife Refuge Manager ID - PIAYA L Lab Interpretation (test Abnormal code = 92414-6) [facility] HospitalC-REACTIVE [id number] 00:01:52 Test Item Value Reference Range Interpretation Comments C-REACTIVE PROTEIN (BEAKER) (test 10.77 mg/dL 0.00-0.50 H code = 676) Wildlife Refuge Manager ID - DANITZA [id number] 00:01:51 Test Item Value Reference Range Interpretation Comments PHOSPHORUS (BEAKER) (test code = 7.0 mg/dL 2.3-4.7 H 604) Wildlife Refuge Manager ID - DANITZA [id number] 00:01:50 Test Item Value Reference Range Interpretation Comments Magnesium (test code = 2.2 mg/dL 1.6-2.6 80679-3) MITCHELL (test code = MITCHELL) Wildlife Refuge Manager ID - PIAYA L Lab Interpretation (test Normal code = 01251-2) [facility] HospitalMagnesium2021-12-24 00:01:50 Test Item Value Reference Range Interpretation Comments Magnesium (test code = 2.2 mg/dL 1.6-2.6 48540-4) MITCHELL (test code = MITCHELL) Wildlife Refuge Manager ID - PIZAYRA L Lab Interpretation (test Normal code = 66682-7) [facility] HospitalMAGNESIUM2021-12-24 00:01:50 Test Item Value Reference Range Interpretation Comments MAGNESIUM (BEAKER) (test code = 2.2 mg/dL 1.6-2.6 627) Wildlife Refuge Manager ID - DANITZA LLactic acid, [id number] 23:54:08 Test Item Value Reference Range Interpretation Comments Lactate, Venous (test code 1.17 mmol/L 0.50-2.20 = 2872) MITCHELL (test code = MITCHELL) Wildlife Refuge Manager ID - PIAYA L Lab Interpretation (test Normal code = 82178-5) [facility] HospitalLactic acid, [id number] 23:54:08 Test Item Value Reference Range Interpretation Comments Lactate, Venous (test code 1.17 mmol/L 0.50-2.20 = 2872) MITCHELL (test code = MITCHELL) Wildlife Refuge Manager ID - PIAYA L Lab Interpretation (test Normal code = 09647-8) [facility] HospitalLACTIC ACID, [id number] 23:54:08 Test Item Value Reference Range Interpretation Comments LACTATE BLOOD VENOUS (2) (NOE) 1.17 mmol/L 0.50-2.20 (test code = 2872) Wildlife Refuge Manager ID - DANITZA WigginsKtPMF2374-51-89 23:40:06 Test Item Value Reference Range Interpretation Comments PTT (test code = 44.1 See_Comment H [Automated message] 82142-3) The system [employer] generated this result transmitted ref erence range: 22.5 - 3 6.0 seconds. The reference range was not used to int erpret this result as normal/abnormal . Lab Interpretation (test Abnormal code = 55914-6) [place] [id number] 23:40:06 Test Item Value Reference Range Interpretation Comments PTT (test code = 44.1 See_Comment H [Automated message] 22478-2) The system [employer] generated this result transmitted ref erence range: 22.5 - 3 6.0 seconds. The reference range was not used to int erpret this result as normal/abnormal . Lab Interpretation (test Abnormal code = 47858-1) [place] [id number] 23:40:06 Test Item Value Reference Range Interpretation Comments PARTIAL THROMBOPLASTIN TIME 44.1 seconds 22.5-36.0 H (NOE) (test code = 760) Prothrombin time/[id number] 23:39:04 Test Item Value Reference Interpretation Comments Range Protime (test code = 16.0 See_Comment H [Autom ated 5902-2) message] The system which generated this result transmitted reference range : 11.9 - 14.2 seconds. The reference range was not used to interpret this result as normal/abnormal . INR (test code = 1.30 See_Comment [Automated 1891-6) message] The system which generated this result [...] valves. Lab Interpretation Abnormal (test code = 28791-6) [facility] HospitalProthrombin time/[id number] 23:39:04 Test Item Value Reference Interpretation Comments Range Protime (test code = 16.0 See_Comment H [Autom ated 5902-2) message] The system which generated this result transmitted reference range : 11.9 - 14.2 seconds. The reference range was not used to interpret this result as normal/abnormal . INR (test code = 1.30 See_Comment [Automated 6301-6) message] The system which generated this result [...] valves. Lab Interpretation Abnormal (test code = 89371-6) [facility] HospitalPROTHROMBIN TIME/[id number] 23:39:04 Test Item Value Reference Range Interpretation Comments PROTIME (BEAKER) 16.0 seconds 11.9-14.2 H (test code = 759) INR (BEAKER) (test 1.30 See_Comment [Automat ed message] code = 370) The system whic h generated this result transmitted ref erence range: <=5.90. The reference range was not used to int erpret this result as normal/abnormal . RECOMMENDED COUMADIN/WARFARIN INR THERAPY RANGESSTANDARD DOSE: 2.0 - 3.0 Includes: PROPHYLAXIS for venous thrombosis, systemic embolization; TREATMENT for venous thrombosis and/or pulmonary embolus.HIGH RISK: Target INR is 2.5-3.5 for patients with mechanical heart valves.CBC W/PLT COUNT & AUTO [id number] 23:30:06 Test Item Value Reference Range Interpretation [...] code = 994) seen FUNGUS CULTURE + [id number] 01:34:00 Test Item Value Reference Range Interpretation Comments CULTURE (BEAKER) (test No fungus isolated in code = 1095) 28 days FUNGUS SMEAR (BEAKER) No fungi seen (test code = 1406) FUNGUS CULTURE + [id number] 01:24:00 Test Item Value Reference Range Interpretation Comments CULTURE (BEAKER) (test No fungus isolated in code = 1095) 28 days FUNGUS SMEAR (BEAKER) No fungi seen (test code = 1406) SURGICALLY OBTAINED CULTURE + GRAM [id number] 16:50:00 Test Item Value Reference Interpretation Comments [...] No organisms (BEAKER) (test code seen = 502940) GRAM STAIN RESULT No organisms (BEAKER) (test code seen = 307380) POCT-GLUCOSE [id number] 21:10:00 Test Item Value Reference Range Interpretation Comments POC-GLUCOSE METER 142 mg/dL 70-110 H : TESTED A T [facility] 6720 (BEAKER) (test code = [facility], 153) 89866: Wildlife Refuge Manager/Techni estefani ID = [id number] for CA RBAJAL, TIMA POCT-GLUCOSE [id number] 11:54:00 Test Item Value Reference Range Interpretation Comments POC-GLUCOSE METER 103 mg/dL 70-110 : TESTED A T [facility] 6720 (BEAKER) (test code = [facility], 153) 61712: Wildlife Refuge Manager/Techni estefani ID = [id number] for SA NTOS, JACOB POCT-GLUCOSE [id number] 08:41:00 Test Item Value Reference Range Interpretation Comments POC-GLUCOSE METER 83 mg/dL 70-110 : TESTED A T [facility] 6720 (BEAKER) (test code = [facility], 153) 62882: Wildlife Refuge Manager/Techni estefani ID = [id number] for QUANG OS, JACOB POCT-GLUCOSE [id number] 07:07:00 Test Item Value Reference Range Interpretation Comments POC-GLUCOSE METER 68 mg/dL 70-110 L : TESTED A T [facility] 6720 (BEAKER) (test code = [facility], 153) 34226: Wildlife Refuge Manager/Techni estefani ID = [id number] for ANGELIATEJINDER JOVEL CBC (HEMOGRAM ONLY)2020-10-03 06:23:00 Test Item Value [...] 0-0 (BEAKER) (test code = 413) POCT-GLUCOSE [id number] 17:51:00 Test Item Value Reference Range Interpretation Comments POC-GLUCOSE METER 141 mg/dL 70-110 H : TESTED A T [facility] 6720 (BEAKER) (test code = DASIA Garcia [facility], 1538) 69303: Wildlife Refuge Manager/Techni estefani ID = [id number] for Ronald Coffman TISSUE [id number] 13:40:00Surgical Pathology Report Case: [id number] Authorizing Provider: Star Cloud DPM Collected: 09/20/2020 10:59 AM Ordering Location: [address] Received: 09/22/2020 08:28 AM Service Pathologist: Saira Chávez MD Specimen: Bone, Bone Eschar Soft Tissue Right Foot ESCHAR AND SOFT TISSUE, RIGHT FOOT, EXCISION: - SKIN AND SOFT TISSUE WITH GANGRENOUS NECROSIS,, ABSECESS AND FIBRINOPURULENT EXUDATE - GMS STAIN NEGATIVE FOR FUNGAL ORGANISM Signing Pathologist Direct Phone Line: [phone] ctronically signed by Saira Chávez MD on 10/02/2020 at 1:40 PMCorrelation with culture study is recommended.37591, 57706Isehpund ulcer, forefoot leftBone tissue, bone eschar soft tissue right foot A. Received are multiple pieces of baca-black, flat, necrotic skin and soft tissue from 0.5 to 2 x 2 cm excised to a depth of less than 0.1 cm. Director Of Land sections are submitted in cassette A1. KM/ewThe interpretation of this case included the use of immunohistochemistry or special stains. GMS- NegativeControl Slides Examined: In-house known positive controls were evaluated along with the test tissue. justin control slides run alongside of the patients sample show appropriate staining. Internal positiveand negative controls when available are evaluated Immunohistochemistry technical testing was performed at [facility], Pathology Laboratory where it was developed and [...] to perform high complexity clinical laboratory testing.POCT-GLUCOSE [id number] 13:28:00 Test Item Value Reference Range Interpretation Comments POC-GLUCOSE METER 77 mg/dL 70-110 : [facility] (Access Mobile) (test code = [facility], 1538) 57329: Wildlife Refuge Manager/Techni estefani ID = [id number] for Aminata ie, Ronald [id number]-[id number] 12:03:00 Test Item Value Reference Range Interpretation Comments ACTIVATED CLOTTING TIME 323 sec : 74 -137 seconds, (Access Mobile) (test code = Baseli ne: TESTED AT 441) [facility] [address] [facility], 770 30: Wildlife Refuge Manager/Techni estefani ID = [id number] for HI CHRISTOPHER, AMADA POCT-GLUCOSE [id number] 07:25:00 Test Item Value Reference Range Interpretation Comments POC-GLUCOSE METER 73 mg/dL 70-110 : TESTED A T [facility] 6720 (Access Mobile) (test code = [facility], 1538) 14722: Wildlife Refuge Manager/Techni estefani ID = [id number] for AMADA DUKES CBC (HEMOGRAM ONLY)2020-10-02 05:34:00 [...] 0-0 (BEAKER) (test code = 413) POCT-GLUCOSE [id number] 01:02:00 Test Item Value Reference Range Interpretation Comments POC-GLUCOSE METER 91 mg/dL 70-110 : TESTED A T [facility] 6720 (BEAKER) (test code = [facility], 153) 17125: Wildlife Refuge Manager/Techni estefani ID = [id number] for Katelin Telloa POCT-GLUCOSE [id number] 22:29:00 Test Item Value Reference Range Interpretation Comments POC-GLUCOSE METER 101 mg/dL 70-110 : TESTED A T [facility] 6720 (BEAKER) (test code = [facility], 153) 30014: Wildlife Refuge Manager/Techni estefani ID = [id number] for Co ok, Kathe POCT-GLUCOSE [id number] 17:20:00 Test Item Value Reference Range Interpretation Comments POC-GLUCOSE METER 147 mg/dL 70-110 H : TESTED A T [facility] 6720 (BEAKER) (test code = DASIA Garcia [facility], 1538) 53112: Wildlife Refuge Manager/Techni estefani ID = [id number] for GUNNER PANDYA POCT-GLUCOSE [id number] 12:35:00 Test Item Value Reference Range Interpretation Comments POC-GLUCOSE METER 75 mg/dL 70-110 : TESTED A T [facility] 6720 (BEAKER) (test code = DASIA Garcia [facility], 1538) 11310: Wildlife Refuge Manager/Techni estefani ID = [id number] for GUNNER MUHAMMAD CBC (HEMOGRAM ONLY)2020-10-01 05:49:00 [...] 0-0 (BEAKER) (test code = 413) POCT-GLUCOSE [id number] 21:43:00 Test Item Value Reference Range Interpretation Comments POC-GLUCOSE METER 130 mg/dL 70-110 H : TESTED A T [facility] 6720 (BEAKER) (test code = [facility], 1538) 90655: Wildlife Refuge Manager/Techni estefani ID = [id number] for Sully Rivera POCT-GLUCOSE [id number] 18:06:00 Test Item Value Reference Range Interpretation Comments POC-GLUCOSE METER 85 mg/dL 70-110 : TESTED A T [facility] 6720 (BEAKER) (test code = [facility], 1538) 75824: Wildlife Refuge Manager/Techni estefani ID = [id number] for QUANG TONYA, JACOB POCT-GLUCOSE [id number] 12:10:00 Test Item Value Reference Range Interpretation Comments POC-GLUCOSE METER 105 mg/dL 70-110 : TESTED A T [facility] 6720 (BEAKER) (test code = [facility] [facility], 1538) 39044: Wildlife Refuge Manager/Techni estefani ID = [id number] for SA DE LEON, JACOB POCT-GLUCOSE [id number] 08:18:00 Test Item Value Reference Range Interpretation Comments POC-GLUCOSE METER 79 mg/dL 70-110 : TESTED A T [facility] 6720 (BEAKER) (test code = [facility], 1538) 80487: Wildlife Refuge Manager/Techni estefani ID = [id number] for QUANG OS, JACOB CBC (HEMOGRAM ONLY)2020-09-30 [...] 0-0 (BEAKER) (test code = 413) POCT-GLUCOSE [id number] 21:43:00 Test Item Value Reference Range Interpretation Comments POC-GLUCOSE METER 122 mg/dL 70-110 H : TESTED A T [facility] 6720 ([facility]) (test code = [facility], 1538) 96638: Wildlife Refuge Manager/Techni estefani ID = [id number] for CA RBAJAL, TIMA POCT-GLUCOSE [id number] 16:21:00 Test Item Value Reference Range Interpretation Comments POC-GLUCOSE METER 105 mg/dL 70-110 : TESTED A T [facility] 6720 (BEAKER) (test code [facility], = 1538) 19133: Wildlife Refuge Manager/Techni estefani ID = [id number] for LATT IMORE - FLETCHER, COLLINS POCT-GLUCOSE [id number] 12:38:00 Test Item Value Reference Range Interpretation Comments POC-GLUCOSE METER 79 mg/dL 70-110 : TESTED A T [facility] 6720 (BEAKER) (test code = [facility], 1538) 19305: Wildlife Refuge Manager/Techni estefani ID = [id number] for LATT IMORE - FLETCHER, COLLINS POCT-GLUCOSE [id number] 07:57:00 Test Item Value Reference Range Interpretation Comments POC-GLUCOSE METER 84 mg/dL 70-110 : TESTED A T [facility] 6720 (BEAKER) (test code = [facility], 1538) 19646: Wildlife Refuge Manager/Techni estefani ID = [id number] for LATT IMORE - FLETCHER, COLLINS [id number] 05:25:00 Test Item Value Reference Range Interpretation [...] 0-0 (BEAKER) (test code = 413) POCT-GLUCOSE [id number] 21:38:00 Test Item Value Reference Range Interpretation Comments POC-GLUCOSE METER 138 mg/dL 70-110 H : TESTED A T [facility] 6720 (BEAKER) (test code = [facility] [place], 1538) 06069: Wildlife Refuge Manager/Techni estefani ID = [id number] for JAD SALGUERO POCT-GLUCOSE [id number] 17:13:00 Test Item Value Reference Range Interpretation Comments POC-GLUCOSE METER 97 mg/dL 70-110 : TESTED A T [facility] 6720 (BEAKER) (test code = DASIA Garcia [facility], 1538) 48224: Wildlife Refuge Manager/Techni estefani ID = [id number] for GUNNER MUHAMMAD POCT-GLUCOSE [id number] 12:15:00 Test Item Value Reference Range Interpretation Comments POC-GLUCOSE METER 105 mg/dL 70-110 : TESTED A T [facility] 6720 (BEAKER) (test code = [facility] Jose [facility], 1538) 02993: Wildlife Refuge Manager/Techni estefani ID = [id number] for GUNNER PANDYA SARS-COV2/RT-PCR ([facility])2020-09-28 11:54:00 Test Item Value Reference Range Interpretation Comments SARS-COV2/RT-PCR Negative Negative The SARS-Co V-2 target (test code = 4658228) nuclei c acids are not detected in [...] Xpress SARS-CoV-2/Flu/RSV by their healthcareprovider. Results from [facility] Xpert Xpress SARS-CoV-2/Flu/RSV test should be correlated [...] 564(g) of the Act.Fact Sheet for Healthcare Providers:http s://www.PacketFront/Documents/Xpert%20Xpress%20SARS%20CoV-2/Fact%20Sheets/302-39 02%86ARJZ-AGM-2%20HEALTHCARE%20PROVIDERS%20FACT%20SHEET.pdfFact Sheet for Healthcare Patients:https://www.PacketFront/Docu ments/Xpert%20Xpress%20SARS%20Cov-2/Fact%20Sheets/302-3801%77XTWQ-MJD-9%20PATIEN T%20FACT%20SHEET.pdfBASI METABOLIC [id number] 11:14:00 Test Item Value Reference Range Interpretation [...] S NOT APPLICABLE FOR DIALYSIS PATIEN TS. Wildlife Refuge Manager ID - ROSIANGCBC (HEMOGRAM ONLY)2020-09-28 09:37:00 Test [...] 0-0 (BEAKER) (test code = 413) POCT-GLUCOSE [id number] 16:33:00 Test Item Value Reference Range Interpretation Comments POC-GLUCOSE METER 98 mg/dL 70-110 : TESTED A T [facility] 6720 (BEAKER) (test code = [facility], 1538) 35904: Wildlife Refuge Manager/Techni estefani ID = [id number] for JAD MICHAEL POCT-GLUCOSE [id number] 12:28:00 Test Item Value Reference Range Interpretation Comments POC-GLUCOSE METER 88 mg/dL 70-110 : TESTED A T [facility] 6720 (BEAKER) (test code = [facility], 1538) 72173: Wildlife Refuge Manager/Techni estefani ID = [id number] for JAD MICHAEL SURGICALLY OBTAINED CULTURE + GRAM [id number] 08:40:00 Test Item Value Reference Interpretation Comments [...] gram positive (BEAKER) (test code rods = 000270) GRAM STAIN RESULT <1+ gram positive (BEAKER) (test code cocci in clusters = 616268) POCT-GLUCOSE [id number] 07:34:00 Test Item Value Reference Range Interpretation Comments POC-GLUCOSE METER 89 mg/dL 70-110 : TESTED A T [facility] 6720 (BEAKER) (test code = [facility] [place], 1538) 06872: Wildlife Refuge Manager/Techni estefani ID = [id number] for JAD MICHAEL CBC (HEMOGRAM ONLY)2020-09-27 06:32:00 [...] 0-0 (BEAKER) (test code = 413) POCT-GLUCOSE [id number] 22:02:00 Test Item Value Reference Range Interpretation Comments POC-GLUCOSE METER 156 mg/dL 70-110 H : TESTED A T [facility] 6720 (BEAKER) (test code = [facility], 153) 90448: Wildlife Refuge Manager/Techni estefani ID = [id number] for Brandi kimberleydeni Sully POCT-GLUCOSE [id number] 12:02:00 Test Item Value Reference Range Interpretation Comments POC-GLUCOSE METER 116 mg/dL 70-110 H : TESTED A T [facility] 6720 (BEAKER) (test code = [facility], 153) 57841: Wildlife Refuge Manager/Techni estefani ID = [id number] for GUNNER PANDYA POCT-GLUCOSE [id number] 08:31:00 Test Item Value Reference Range Interpretation Comments POC-GLUCOSE METER 93 mg/dL 70-110 : TESTED A T [facility] 6720 (BEAKER) (test code = [facility], 1538) 93067: Wildlife Refuge Manager/Techni estefani ID = [id number] for GUNNER MUHAMMAD ANAEROBIC [id number] 07:58:00 Test Item Value Reference Range Interpretation Comments CULTURE (BEAKER) (test No anaerobes isolated code = 1095) ANAEROBIC [id number] 07:46:00 Test Item Value Reference Range Interpretation [...] 0-0 (BEAKER) (test code = 413) POCT-GLUCOSE [id number] 22:24:00 Test Item Value Reference Range Interpretation Comments POC-GLUCOSE METER 129 mg/dL 70-110 H : TESTED A T [facility] 6720 (BEAKER) (test code = [facility], 1538) 03332: Wildlife Refuge Manager/Techni estefani ID = [id number] for TEJINDER MORALES POCT-GLUCOSE [id number] 17:39:00 Test Item Value Reference Range Interpretation Comments POC-GLUCOSE METER 106 mg/dL 70-110 : TESTED A T [facility] 6720 (BEAKER) (test code = [facility], 1538) 45992: Wildlife Refuge Manager/Techni estefani ID = [id number] for SA CHRISOS, JACOB HEMOGLOBIN AND [id number] 15:48:00 Test Item Value Reference Range Interpretation Comments HEMOGLOBIN (BEAKER) (test code = 6.1 GM/DL 13.7-17.5 L 410) HEMATOCRIT (BEAKER) (test code = 20.6 % 40.1-51.0 L 411) Wildlife Refuge Manager ID - [id number]-GLUCOSE [id number] 11:53:00 Test Item Value Reference Range Interpretation Comments POC-GLUCOSE METER 122 mg/dL 70-110 H : TESTED A T [facility] 6720 (BEAKER) (test code = [facility], 1538) 03014: Wildlife Refuge Manager/Techni estefani ID = [id number] for SA JACOB DE LEON POCT-GLUCOSE [id number] 08:02:00 Test Item Value Reference Range Interpretation Comments POC-GLUCOSE METER 105 mg/dL 70-110 : TESTED A T [facility] 6720 (BEAKER) (test code = [facility], [facility]) 39282: Wildlife Refuge Manager/Techni estefani ID = [id number] for SA JACOB DE LEON CBC (HEMOGRAM ONLY)2020-09-25 06:49:00 Test Item Value [...] CELL DISTRIBUTION WIDTH 17.4 % 11.6-14.4 H (AKER) (test code = 412) PLATELET COUNT (AKER) (test 287 K/CU MM 150-450 code = 756) MEAN PLATELET VOLUME (BEAKER) 9.7 fL 9.4-12.4 (test code = 754) NUCLEATED RED BLOOD CELLS 0 /100 WBC 0-0 (AKER) (test code = 413) POCT-GLUCOSE [id number] 22:19:00 Test Item Value Reference Range Interpretation Comments POC-GLUCOSE METER 174 mg/dL 70-110 H : TESTED A T [facility] 6720 ([facility]) (test code = [facility], 153) 19804: Wildlife Refuge Manager/Techni estefani ID = [id number] for Sully Rivera POCT-GLUCOSE [id number] 18:50:00 Test Item Value Reference Range Interpretation Comments POC-GLUCOSE METER 152 mg/dL 70-110 H : TESTED A T [facility] 6720 ([facility]) (test code [facility], = 1538) 87497: Wildlife Refuge Manager/Techni estefani ID = [id number] for Amaury Lucio POCT-GLUCOSE [id number] 11:55:00 Test Item Value Reference Range Interpretation Comments POC-GLUCOSE METER 169 mg/dL 70-110 H : TESTED A T [facility] 6720 (BEAKER) (test code = [facility], 153) 48008: Wildlife Refuge Manager/Techni estefani ID = [id number] for SA NTOS, JACOB POCT-GLUCOSE [id number] 08:28:00 Test Item Value Reference Range Interpretation Comments POC-GLUCOSE METER 110 mg/dL 70-110 : [facility] (test code = [facility], 153) 63798: Wildlife Refuge Manager/Techni estefani ID = [id number] for SA NTOS, JACOB BASIC METABOLIC [id number] 07:01:00 Test Item Value Reference Range Interpretation [...] S NOT APPLICABLE FOR DIALYSIS PATIEN TS. Wildlife Refuge Manager ID - BASSEM [id number] 06:35:00 Test Item Value Reference Range Interpretation Comments MAGNESIUM (BEAKER) (test code = 2.2 mg/dL 1.6-2.6 627) Wildlife Refuge Manager ID - BASSEM [id number] 06:35:00 Test Item Value Reference Range Interpretation Comments PHOSPHORUS (BEAKER) (test code = 6.0 mg/dL 2.3-4.7 H 604) Wildlife Refuge Manager ID Benjie LUEVANO WCBC (HEMOGRAM ONLY)2020-09-24 05:34:00 [...] 0-0 (BEAKER) (test code = 413) POCT-GLUCOSE [id number] 05:21:00 Test Item Value Reference Range Interpretation Comments POC-GLUCOSE METER 107 mg/dL 70-110 : TESTED A T [facility] 6720 (BEAKER) (test code [facility], = 1538) 86012: Wildlife Refuge Manager/Techni estefani ID = [id number] for DARLYN RRE, NARCISO POCT-GLUCOSE [id number] 20:32:00 Test Item Value Reference Range Interpretation Comments POC-GLUCOSE METER 133 mg/dL 70-110 H : TESTED A T [facility] 6720 (BEAKER) (test code = [facility], 1538) 50201: Wildlife Refuge Manager/Techni estefani ID = [id number] for ARUNA LATMARCELO, SJ POCT-GLUCOSE [id number] 17:23:00 Test Item Value Reference Range Interpretation Comments POC-GLUCOSE METER 141 mg/dL 70-110 H : TESTED A T [facility] 6720 (BEAKER) (test code = [facility], 1538) 16959: Wildlife Refuge Manager/Techni estefani ID = [id number] for TRE TYGUNNER SARS-COV2/RT-PCR ([facility])2020-09-23 16:45:00 Test Item Value Reference Range Interpretation Comments SARS-COV2/RT-PCR (test Negative Not Detected, Negative, code = 7555258) See external report for linked test SARS-COV-2 PERFORMING LAB [facility] KEELY (test code = 3493361) Negative result for this test determines that [...] of the Act.Fact Sheet for Healthcare Prov iders:https://www.[employer]/sites/default/files/product/documents/Fact_Sheet_HC _Rrpeqrbxt_Ripa_OYHF-HuH-0.pdfFact Sheet for Healthcare Patients:https://www.[employer]/sites/default/files/product/docume nts/Fvjo_Wdwoa_Horvjwgy_Pull_DOWM-ArY-2.pdfPerforming Laboratory:[facility], [place] [address]BYHGZ [id number] 12:00:00 Test Item Value Reference Range Interpretation Comments CULTURE (BEAKER) (test No growth in 5 days code = 1095) POCT-GLUCOSE [id number] 08:40:00 Test Item Value Reference Range Interpretation Comments POC-GLUCOSE METER 82 mg/dL 70-110 : TESTED A T [facility] 6720 (BEAKER) (test code = [facility] [place], 1538) 03488: Wildlife Refuge Manager/Techni estefani ID = [id number] for GUNNER MUHAMMAD BASIC METABOLIC [id number] 06:29:00 Test Item Value Reference Range Interpretation [...] S NOT APPLICABLE FOR DIALYSIS PATIEN TS. Wildlife Refuge Manager ID - JAQUELINE [id number] 06:27:00 Test Item Value Reference Range Interpretation Comments MAGNESIUM (BEAKER) (test code = 1.9 mg/dL 1.6-2.6 627) Wildlife Refuge Manager ID - JAQUELINE [id number] 06:27:00 Test Item Value Reference Range Interpretation Comments PHOSPHORUS (BEAKER) (test code = 4.5 mg/dL 2.3-4.7 604) Wildlife Refuge Manager ID - JAQUELINE MCBC (HEMOGRAM ONLY)2020-09-23 06:08:00 [...] 0-0 (BEAKER) (test code = 413) POCT-GLUCOSE [id number] 20:54:00 Test Item Value Reference Range Interpretation Comments POC-GLUCOSE METER 111 mg/dL 70-110 H : TESTED A T [facility] 6720 (BEAKER) (test code = [facility], 153) 34790: Wildlife Refuge Manager/Techni estefani ID = [id number] for SJ HERBERT POCT-GLUCOSE [id number] 17:25:00 Test Item Value Reference Range Interpretation Comments POC-GLUCOSE METER 119 mg/dL 70-110 H : TESTED A T [facility] 6720 (BEAKER) (test code = [facility], 153) 74812: Wildlife Refuge Manager/Techni estefani ID = [id number] for TRE TYGUNNER BASIC METABOLIC [id number] 12:39:00 Test Item Value Reference Range Interpretation [...] S NOT APPLICABLE FOR DIALYSIS PATIEN TS. Wildlife Refuge Manager ID - ANTONY [id number] 12:36:00 Test Item Value Reference Range Interpretation Comments MAGNESIUM (BEAKER) (test code = 2.0 mg/dL 1.6-2.6 627) Wildlife Refuge Manager ID - ANTONY [id number] 12:36:00 Test Item Value Reference Range Interpretation Comments PHOSPHORUS (BEAKER) (test code = 5.8 mg/dL 2.3-4.7 H 604) Wildlife Refuge Manager ID Benjie HARDY FPOCT-GLUCOSE [id number] 12:22:00 Test Item Value Reference Range Interpretation Comments POC-GLUCOSE METER 104 mg/dL 70-110 : TESTED A T [facility] 6720 (BEAKER) (test code = [facility], 1538) 10629: Wildlife Refuge Manager/Techni estefani ID = [id number] for FA ITH, GUNNER POCT-GLUCOSE [id number] 08:22:00 Test Item Value Reference Range Interpretation Comments POC-GLUCOSE METER 100 mg/dL 70-110 : TESTED A T [facility] 6720 (BEAKER) (test code = [facility], 1538) 44966: Wildlife Refuge Manager/Techni estefani ID = [id number] for FA ITH, GUNNER POCT-GLUCOSE [id number] 21:12:00 Test Item Value Reference Range Interpretation Comments POC-GLUCOSE METER 133 mg/dL 70-110 H : TESTED A T [facility] 6720 (BEAKER) (test code = [facility], 153) 12523: Wildlife Refuge Manager/Techni estefani ID = [id number] for BA COMFORT PUGAELA POCT-GLUCOSE [id number] 16:31:00 Test Item Value Reference Range Interpretation Comments POC-GLUCOSE METER 127 mg/dL 70-110 H : TESTED A T [facility] 6720 (BEAKER) (test code = [facility] [place], 1538) 77514: Wildlife Refuge Manager/Techni estefani ID = [id number] for Je ssie, Ronald POCT-GLUCOSE [id number] 12:56:00 Test Item Value Reference Range Interpretation Comments POC-GLUCOSE METER 99 mg/dL 70-110 : TESTED A T [facility] 6720 (BEAKER) (test code = DASIA Garcia [facility], 1538) 84488: Wildlife Refuge Manager/Techni estefani ID = [id number] for Aminata ie, Ronald BASIC METABOLIC [id number] 12:15:00 Test Item Value Reference Range Interpretation [...] S NOT APPLICABLE FOR DIALYSIS PATIEN TS. Wildlife Refuge Manager ID - PIAYA LWOUND CULTURE + GRAM [id number] 08:12:00 Test Item Value Reference Range Interpretation [...] RESULT (BEAKER) negative rods (test code = 056186) GRAM STAIN 1+ gram positive RESULT (BEAKER) cocci in (test code = clusters 736320) WOUND CULTURE + GRAM [id number] 08:10:00 Test Item Value Reference Interpretation Comments [...] (BEAKER) (test code = cocci in pairs 521959) POCT-GLUCOSE [id number] 07:38:00 Test Item Value Reference Range Interpretation Comments POC-GLUCOSE METER 84 mg/dL 70-110 : TESTED A T [facility] 6720 ([facility]) (test code = [facility], [facility]) 99737: Wildlife Refuge Manager/Techni estefani ID = [id number] for Aminata ie, Ronald SPIN/CONCENTRATION [id number] 06:17:00 Test Item Value Reference Range Interpretation Comments CONCENTRATION CHARGED ([facility]) (test Done code = 2657) POCT-GLUCOSE [id number] 21:46:00 Test Item Value Reference Range Interpretation Comments POC-GLUCOSE METER 122 mg/dL 70-110 H : [facility] T [facility] (test code = [facility], 153) 90893: Wildlife Refuge Manager/Techni estefani ID = [id number] for Elliott larsondeni Tavo POCT-GLUCOSE [id number] 17:39:00 Test Item Value Reference Range Interpretation Comments POC-GLUCOSE METER 114 mg/dL 70-110 H : [facility] A T [facility]20 [facility] (test code = [facility], 153) 78604: Wildlife Refuge Manager/Techni estefani ID = [id number] for BRIAN HODGEROBLESVikas POCT-GLUCOSE [id number] 12:25:00 Test Item Value Reference Range Interpretation Comments POC-GLUCOSE METER 93 mg/dL 70-110 : TEST[facility] A T [facility]20 [facility] (test code = [facility], 153) 29826: Wildlife Refuge Manager/Techni estefani ID = [id number] for JAD MICHAEL POCT-GLUCOSE [id number] 11:36:00 Test Item Value Reference Range Interpretation Comments POC-GLUCOSE METER 95 mg/dL 70-110 : TESTED A T [facility] 6720 (BEAKER) (test code = DASIA Garcia [facility], 1538) 15904: Wildlife Refuge Manager/Techni estefani ID = [id number] for JULIO STEWART BLOOD [id number] 06:44:00 Test Item Value Reference Range Interpretation [...] gram 1123) positive cocci in clusters BLOOD [id number] 06:43:00 Test Item Value Reference Interpretation Comments [...] 1123) gram positive cocci in clusters POCT-GLUCOSE [id number] 21:17:00 Test Item Value Reference Range Interpretation Comments POC-GLUCOSE METER 160 mg/dL 70-110 H : TESTED A T [facility] 6720 (BEAKER) (test code = DASIA Garcia [facility], 1538) 19098: Wildlife Refuge Manager/Techni estefani ID = [id number] for Co Kathe nguyen POCT-GLUCOSE [id number] 12:08:00 Test Item Value Reference Range Interpretation Comments POC-GLUCOSE METER 100 mg/dL 70-110 : TESTED A T [facility] 6720 (BEAKER) (test code = [facility] [place], 1538) 85393: Wildlife Refuge Manager/Techni estefani ID = [id number] for JACOB LYLES CBC W/PLT COUNT & AUTO [id number] 08:20:00 Test Item Value Reference Range Interpretation [...] CONCENTRATION Adequate (CELLAVISION)(BEAKER) (test code = 3438) Wildlife Refuge Manager ID - Lazara Bryant comments: Slide comments:POCT-GLUCOSE METER 2020-09-19 07:56:00 Test Item Value Reference Range Interpretation Comments POC-GLUCOSE METER 109 mg/dL 70-110 : TESTED A T [facility] 6720 (BEAKER) (test code = [facility] [place], 1538) 71457: Wildlife Refuge Manager/Techni estefani ID = [id number] for MOISESJACOB BASIC METABOLIC [id number] 06:28:00 Test Item Value Reference Range Interpretation [...] S NOT APPLICABLE FOR DIALYSIS PATIEN TS. Wildlife Refuge Manager ID - DANITZA [id number] 06:27:00 Test Item Value Reference Range Interpretation Comments MAGNESIUM (BEAKER) (test code = 3.0 mg/dL 1.6-2.6 H 627) Wildlife Refuge Manager ID - DANITZA [id number] 06:27:00 Test Item Value Reference Range Interpretation Comments PHOSPHORUS (BEAKER) (test code = 5.4 mg/dL 2.3-4.7 H 604) Wildlife Refuge Manager ID - GARYZAYRA LPOCT-GLUCOSE [id number] 21:24:00 Test Item Value Reference Range Interpretation Comments POC-GLUCOSE METER 202 mg/dL 70-110 H : TESTED A T [facility] 6720 (BEAKER) (test code = D[facility] [place], 1538) 13100: Wildlife Refuge Manager/Techni estefani ID = [id number] for SJ HERBERT SARS-COV2/RT-PCR ([facility])2020-09-18 18:45:00 Test Item Value Reference Range Interpretation Comments SARS-COV2/RT-PCR (test Negative Not Detected, Negative, code = 9778771) See external report for linked test SARS-COV-2 PERFORMING LAB [facility] KEELY (test code = 4660895) Negative result for this test determines that [...] of the Act.Fact Sheet for Healthcare Prov iders:https://www.[employer]/sites/default/files/product/documents/Fact_Sheet_HC _Puvvardsy_Qjpg_QARK-QmU-1.pdfFact Sheet for Healthcare Patients:https://www.[employer]com/sites/default/files/product/docume nts/Vorh_Vfeil_Ctdivcbs_Jrdk_XYWX-DrK-3.pdfPerforming Laboratory:[facility], [place] [address]RMAC-SKTHGHF METER 2020-09-18 17:18:00 Test Item Value Reference Range Interpretation Comments POC-GLUCOSE METER 101 mg/dL 70-110 : TESTED A T [facility] 6720 (Access Mobile) (test code = CHRISTOSDELPHINE Garcia [facility], 1538) 61102: Wildlife Refuge Manager/Techni estefani ID = [id number] for GUNNER PANDYA POCT-GLUCOSE [id number] 12:20:00 Test Item Value Reference Range Interpretation Comments POC-GLUCOSE METER 117 mg/dL 70-110 H : TESTED A T [facility] 6720 (Access Mobile) (test code = [facility] Jose [facility], 1538) 86711: Wildlife Refuge Manager/Techni estefani ID = [id number] for GUNNER PANDYA BASIC METABOLIC [id number] 08:24:00 Test Item Value Reference Range Interpretation [...] S NOT APPLICABLE FOR DIALYSIS PATIEN TS. Wildlife Refuge Manager ID - DANITZA LOperalouann ID - ADMINPOCT-GLUCOSE [id number] 08:19:00 Test Item Value Reference Range Interpretation Comments POC-GLUCOSE METER 103 mg/dL 70-110 : TESTED A T [facility] 6720 (BEAKER) (test code = DASIA Garcia [facility], 1538) 72230: Wildlife Refuge Manager/Techni estefani ID = [id number] for GUNNER PANDYA [id number] 07:33:00 Test Item Value Reference Range Interpretation Comments MAGNESIUM (BEAKER) 2.9 mg/dL 1.6-2.6 H Specimen slightly (test code = 627) hemolyzed Wildlife Refuge Manager ID - DANITZA [id number] 07:33:00 Test Item Value Reference Range Interpretation Comments PHOSPHORUS (BEAKER) 3.6 mg/dL 2.3-4.7 Specimen slightly (test code = 604) hemolyzed Wildlife Refuge Manager ID - DANITZA LCBC W/PLT COUNT & AUTO [id number] 04:53:00 Test Item Value Reference Range Interpretation [...] 417) IMMATURE GRANULOCYTES-RELATIVE 1 % 0-1 PERCENT (NADJAAKER) (test code = 2801) POCT-GLUCOSE [id number] 21:15:00 Test Item Value Reference Range Interpretation Comments POC-GLUCOSE METER 115 mg/dL 70-110 H : TESTED A T [facility] 6720 (NOE) (test code = [facility], 1538) 47989: Wildlife Refuge Manager/Techni estefani ID = [id number] for SJ HERBERT BLOOD CULTURE IDENTIFICATION [id number] 21:10:00 Test Item Value Reference Interpretation Comments Range LISTERIA MONOCYTOGENES Not Not detected (test code = 20151208) detected STAPHYLOCOCCUS (test Detected Not detected A code = 20160210) STAPHYLOCOCCUS AUREUS Detected Not detected A Methic illin-susceptible (test code = 20160211) S. aur eus (MSSA)First-tessy e therapy: Cefazolin or Ox acillin (Oxacillin pref erred if BOILER CLEANER involvement ) ID CONSULTATION REQUIREDStaphyl ococcus aureus DETECTED MecA NOT DETECTED Refere nce Range: Not Detected STREPTOCOCCUS (test Not Not detected code = 20160212) detected STREPTOCOCCUS Not Not detected AGALACTIAE (GROUP B) detected (test code = 5549753) STREPTOCOCCUS Not Not detected PNEUMONIAE (test code detected = 6767232) STREPTOCOCCUS PYOGENES Not Not detected (GROUP A) (test code = detected 3343134) ACINETOBACTER Not Not detected BAUMANNII (test code = detected 3777574) HAEMOPHILUS INFLUENZAE Not Not detected (test code = 4738815) detected NEISSERIA MENINGITIDIS Not Not detected (test code = 9597053) detected ENTEROBACTERIACEAE Not Not detected (test code = 4096290) detected ENTEROBACTER CLOACOE Not Not detected COMPLEX (test code = detected [id number]) KLEBSIELLA OXYTOCA Not Not detected (test code = 0488381) detected KLEBSIELLA PNEUMONIAE Not Not detected (test code = 1650) detected PROTEUS (test code = Not Not detected [id number]) detected SERRATIA MARCESCENS Not Not detected (test code = 2439804) detected CAMI ALBICANS (test Not Not detected code = 3137941) detected CAMI GLABRATA (test Not Not detected code = 3378862) detected CAMI KRUSEI (test Not Not detected code = 4478307) detected CAMI PARAPSILOSIS Not Not detected (test code = 3437614) detected CAMI TROPICALIS Not Not detected (test code = 2761680) detected ESCHERICHIA COLI (test Not Not detected code = 5439623) detected METHICILLIN-RESISTANCE Not Not detected Note: Antimicrobial GENE (test code = detected resistance can occur via ) multiple mechan isms. A Not Detected re sult for the [email or web address] antimicrobial r esistance gene assays lance s not indicate antimi crobial susceptibility. Subculturing is required for species identification and susceptibility testing of isolates. VANCOMYCIN-RESISTANCE GENE (test code = 7857085) CARBAPENEM-RESISTANCE GENE (test code = 7552001) ENTEROCOCCUS-BEAKER Not Not detected (test code = 7736812) detected PSEUDOMONAS Not Not detected AERUGINOSA-BEAKER detected (test code = 3937736) Other bacteria and resistance markers not targeted by this PCR panel cannot be excluded; therefore clinical correlation and follow up of serology, culture results, and other molecular studies is required. The results are not intended to be used as the sole means for clinical diagnosis or patient management decisions. This sample was tested at the [facility] Molecular Diagnostics Laboratory using the [employer] Software Blood Culture ID Panel. It is FDA cleared and has been verified and approved by the [facility] for clinical use. This laboratory is CLIA-certified and College ofAmerican Pathologists (CAP)-accredited to perform high complexity testing.HEPATITIS B SURFACE [id number] 18:09:00 Test Item Value Reference Range Interpretation Comments HEPATITIS B SURFACE ANTIGEN (2) Nonreactive Nonreactive (BEAKER) (test code = 2585) Specimen is considered negative for HBsAg.POCT-GLUCOSE [id number] 17:13:00 Test Item Value Reference Range Interpretation Comments POC-GLUCOSE METER 127 mg/dL 70-110 H : TESTED A T [facility] 6720 (iPixCelAKER) (test code = [facility], 1538) 26459: Wildlife Refuge Manager/Techni estefani ID = [id number] for FA ITH, GUNNER POCT-GLUCOSE [id number] 12:12:00 Test Item Value Reference Range Interpretation Comments POC-GLUCOSE METER 99 mg/dL 70-110 : TESTED A T [facility] 6720 (BEAKER) (test code = [facility], 1538) 18494: Wildlife Refuge Manager/Techni estefani ID = [id number] for FAIT H, GUNNER CBC W/PLT COUNT & AUTO [id number] 08:34:00 Test Item Value Reference Range Interpretation [...] CONCENTRATION Adequate (CELLAVISION)(BEAKER) (test code = 3438) Wildlife Refuge Manager ID - Lazara Manny comments: Slide comments:[id number] 05:34:00 Test Item Value Reference Range Interpretation Comments MAGNESIUM (BEAKER) 2.8 mg/dL 1.6-2.6 H Specimen slightly (test code = 627) hemolyzed Wildlife Refuge Manager ID - JAQUELINE [id number] 05:34:00 Test Item Value Reference Range Interpretation Comments PHOSPHORUS (BEAKER) 4.0 mg/dL 2.3-4.7 Specimen slightly (test code = 604) hemolyzed Wildlife Refuge Manager ID - JAQUELINE MBASIC METABOLIC [id number] 05:34:00 Test Item Value Reference Range Interpretation [...] S NOT APPLICABLE FOR DIALYSIS PATIEN TS. Wildlife Refuge Manager ID - JAQUELINE MRAD, FOOT, MIN 3 VIEWS, [id number] 20:44:00Reason for exam:->[facility] DAY[facility] GRIJALVA : 1960 Sex: MFINAL REPORTPATIENT ID: [id number] X-ray right foot multiple views HISTORY: Cellulitis [...] defect(s). Osteomyelitis is not ruled out.Signed: Moi Feldmaneport Verified Date/Time: 09/16/2020 20:44:14 Reading Location: [facility] C0[facility] Consult Reading Room (CELLAVISION MANUAL DIFF)2020-09-16 20:24:00 [...] K/uL 0.00-0.00 H (CELLAVISION)(BEAKER) (test code = 0348) TOTAL COUNTED (BEAKER) (test code = 100 1351) PLT MORPHOLOGY (BEAKER) (test code Normal = 486) HYPERSEGMENTATION Present (CELLAVISION)(BEAKER) (test code = 6515) POIKILOCYTES (BEAKER) (test code = 1+ few 966) ELLIPTOCYTES (BEAKER) (test code = 1+ few 962) ARTIFACT (CELLAVISION)(BEAKER) Present (test code = 3432) PLATELET CONCENTRATION Adequate (CELLAVISION)(BEAKER) (test code = 3438) Wildlife Refuge Manager ID - Maggie comments: Slide comments:C-REACTIVE PROTEIN 2020-09-16 19:59:00 Test Item Value Reference Range Interpretation Comments C-REACTIVE PROTEIN (BEAKER) (test 10.23 mg/dL 0.00-0.50 H code = 676) Wildlife Refuge Manager ID - BSBASIC METABOLIC [id number] 19:59:00 Test Item Value Reference Range Interpretation [...] S NOT APPLICABLE FOR DIALYSIS PATIEN TS. Wildlife Refuge Manager ID - [id number] 19:56:00 Test Item Value Reference Range Interpretation [...] exclusion of thrombosis is within 95-100% range. PT/[id number] 19:54:00 Test Item Value Reference Range Interpretation [...] for patients with mechanical heart valves.LACTIC ACID, [id number] 19:54:00 Test Item Value Reference Range Interpretation Comments LACTATE BLOOD VENOUS (2) (BEAKER) 1.16 mmol/L 0.50-2.20 (test code = 2872) Wildlife Refuge Manager ID - BSCBC W/PLT COUNT & AUTO [id number] 19:45:00 Test Item Value Reference Range Interpretation [...] (test code = 994) seen BASIC METABOLIC [id number] 11:06:00 Test Item Value Reference Range Interpretation [...] S NOT APPLICABLE FOR DIALYSIS PATIEN TS. Wildlife Refuge Manager ID - EMERSONCBC (HEMOGRAM ONLY)2020-06-19 06:37:00 Test [...] 0-0 (BEAKER) (test code = 413) SARS-COV2/RT-PCR ([facility])2020-06-16 13:14:00 Test Item Value Reference Range Interpretation Comments SARS-COV2/RT-PCR (test Negative Not Detected, Negative, code = 4776654) See external report for linked test SARS-COV-2 PERFORMING LAB [facility] KEELY (test code = 2931847) Negative result for this test determines that [...] of the Act.Fact Sheet for Healthcare Prov iders:https://www.[employer]/sites/default/files/product/documents/Fact_Sheet_HC _Pkkxgttlu_Hnzx_DCVP-NgG-2.pdfFact Sheet for Healthcare Patients:https://www.[employer]/sites/default/files/product/docume nts/Aikd_Nxrto_Ffskvlvu_Hvuu_KTGJ-LpT-2.pdfPerforming Laboratory:[facility] [facility], [place] [id number] 06:05:00 Test Item Value Reference Range Interpretation Comments PHOSPHORUS (BEAKER) (test code = 4.4 mg/dL 2.3-4.7 604) Wildlife Refuge Manager ID - JAQUELINE MPOCT-GLUCOSE [id number] 21:46:00 Test Item Value Reference Range Interpretation Comments POC-GLUCOSE METER 124 mg/dL 70-110 H : TESTED A T [facility] 6720 (BEAKER) (test code = [facility], 1538) 14186: Wildlife Refuge Manager/Techni estefani ID = [id number] for Zoraida Handley POCT-GLUCOSE [id number] 16:20:00 Test Item Value Reference Range Interpretation Comments POC-GLUCOSE METER 125 mg/dL 70-110 H : TESTED A T [facility] 6720 (BEAKER) (test code = [facility], 1538) 03958: Wildlife Refuge Manager/Techni estefani ID = [id number] for Jose rizo, Areiona POCT-GLUCOSE [id number] 14:24:00 Test Item Value Reference Range Interpretation Comments POC-GLUCOSE METER 77 mg/dL 70-110 : TESTED A T [facility] 6720 (BEAKER) (test code = [facility], 1538) 41018: Wildlife Refuge Manager/Techni estefani ID = [id number] for Juan Manuel iams, Areiona BASIC METABOLIC [id number] 08:54:00 Test Item Value Reference Range Interpretation [...] S NOT APPLICABLE FOR DIALYSIS PATIEN TS. Wildlife Refuge Manager ID - EDASICBC W/PLT COUNT & AUTO [id number] 08:49:00 Test Item Value Reference Range Interpretation [...] PERCENT (BEAKER) (test code = 2801) POCT-GLUCOSE [id number] 07:58:00 Test Item Value Reference Range Interpretation Comments POC-GLUCOSE METER 75 mg/dL 70-110 : TESTED A T [facility] 6720 (BEAKER) (test code = [facility], 153) 71716: Wildlife Refuge Manager/Techni estefani ID = [id number] for Will iams, Areiona FUNGUS CULTURE + [id number] 01:12:00 Test Item Value Reference Range Interpretation Comments CULTURE (BEAKER) A <1+ Cami (test code = shaqloni i 1095) FUNGUS SMEAR No fungi seen (BEAKER) (test code = 1406) POCT-GLUCOSE [id number] 21:05:00 Test Item Value Reference Range Interpretation Comments POC-GLUCOSE METER 113 mg/dL 70-110 H : TESTED A T [facility] 6720 (BEAKER) (test code = [facility], 153) 06745: Wildlife Refuge Manager/Techni estefani ID = [id number] for RON GODWIN POCT-GLUCOSE [id number] 17:14:00 Test Item Value Reference Range Interpretation Comments POC-GLUCOSE METER 104 mg/dL 70-110 : TESTED A T [facility] 6720 (BEAKER) (test code = [facility], 153) 71798: Wildlife Refuge Manager/Techni estefani ID = [id number] for LEW VAZQUEZ, NE POCT-GLUCOSE [id number] 11:30:00 Test Item Value Reference Range Interpretation Comments POC-GLUCOSE METER 112 mg/dL 70-110 H : TESTED A T [facility] 6720 (BEAKER) (test code = [facility], 153) 60633: Wildlife Refuge Manager/Techni estefani ID = [id number] for PA RKSYLVIA, NE POCT-GLUCOSE [id number] 09:11:00 Test Item Value Reference Range Interpretation Comments POC-GLUCOSE METER 128 mg/dL 70-110 H : TESTED A T [facility] 6720 (BEAKER) (test code = [facility], 1538) 20610: Wildlife Refuge Manager/Techni estefani ID = [id number] for PRINCESS LAURA POCT-GLUCOSE [id number] 21:56:00 Test Item Value Reference Range Interpretation Comments POC-GLUCOSE METER 120 mg/dL 70-110 H : TESTED A T [facility] 6720 (BEAKER) (test code = [facility], 1538) 18334: Wildlife Refuge Manager/Techni estefani ID = [id number] for Zoraida Handley POCT-GLUCOSE [id number] 11:53:00 Test Item Value Reference Range Interpretation Comments POC-GLUCOSE METER 102 mg/dL 70-110 : TESTED A T [facility] 6720 (BEAKER) (test code = [facility], 1538) 45638: Wildlife Refuge Manager/Techni estefani ID = [id number] for Jose rizo, Areiona POCT-GLUCOSE [id number] 08:16:00 Test Item Value Reference Range Interpretation Comments POC-GLUCOSE METER 85 mg/dL 70-110 : TESTED A T [facility] 6720 (BEAKER) (test code = [facility], 1538) 10025: Wildlife Refuge Manager/Techni estefani ID = [id number] for Juan Manuel nicholas, Areiona [id number] 04:45:00 Test Item Value Reference Range Interpretation Comments PHOSPHORUS (BEAKER) (test code = 5.3 mg/dL 2.3-4.7 H 604) Wildlife Refuge Manager ID - BSCBC W/PLT COUNT & AUTO [id number] 04:10:00 Test Item Value Reference Range Interpretation [...] PERCENT (BEAKER) (test code = 2801) POCT-GLUCOSE [id number] 21:00:00 Test Item Value Reference Range Interpretation Comments POC-GLUCOSE METER 145 mg/dL 70-110 H : TESTED A T [facility] 6720 (BEAKER) (test code = [facility], 1538) 70318: Wildlife Refuge Manager/Techni estefani ID = [id number] for REJI MONTOYA [id number] 17:48:00 Test Item Value Reference Range Interpretation Comments PHOSPHORUS (BEAKER) (test code = 4.9 mg/dL 2.3-4.7 H 604) Wildlife Refuge Manager ID - BSPOCT-GLUCOSE [id number] 15:50:00 Test Item Value Reference Range Interpretation Comments POC-GLUCOSE METER 116 mg/dL 70-110 H : TESTED A T [facility] 6720 (BEAKER) (test code = [facility], 153) 63879: Wildlife Refuge Manager/Techni estefani ID = [id number] for Wi lliams, Areiona POCT-GLUCOSE [id number] 12:42:00 Test Item Value Reference Range Interpretation Comments POC-GLUCOSE METER 86 mg/dL 70-110 : TESTED A T [facility] 6720 (BEAKER) (test code = [facility], 153) 25087: Wildlife Refuge Manager/Techni estefani ID = [id number] for Will iams, Areiona POCT-GLUCOSE [id number] 08:21:00 Test Item Value Reference Range Interpretation Comments POC-GLUCOSE METER 108 mg/dL 70-110 : TESTED A T [facility] 6720 (BEAKER) (test code = [facility], [facility]) 21676: Wildlife Refuge Manager/Techni estefani ID = [id number] for Wi lliams, Areiona POCT-GLUCOSE [id number] 22:07:00 Test Item Value Reference Range Interpretation Comments POC-GLUCOSE METER 118 mg/dL 70-110 H : TESTED A T [facility] 6720 (BEAKER) (test code = [facility], [facility]) 92581: Wildlife Refuge Manager/Techni estefani ID = [id number] for Francisca Handleyna POCT-GLUCOSE [id number] 12:30:00 Test Item Value Reference Range Interpretation Comments POC-GLUCOSE METER 93 mg/dL 70-110 : Notified RN/MD: TESTED (BEAKER) ([facility] = [facility] [address] [place] [address]6968) [facility], [facility] 30: Wildlife Refuge Manager/Techni estefani ID = [id number] for KELSI , COSHA POCT-GLUCOSE [id number] 07:55:00 Test Item Value Reference Range Interpretation Comments POC-GLUCOSE METER 81 mg/dL 70-110 : Notified RN/MD: TESTED (BEAKER) (test code = AT [facility] [address] [place] [address]) [facility], [facility] 30: Wildlife Refuge Manager/Techni estefani ID = [id number] for KELSI , COSHA POCT-GLUCOSE [id number] 22:01:00 Test Item Value Reference Range Interpretation Comments POC-GLUCOSE METER 104 mg/dL 70-110 : TESTED A T [facility] 6720 (BEAKER) (test code = [facility], [facility]) 94251: Wildlife Refuge Manager/Techni estefani ID = [id number] for MALGORZATA MORRISON (V)CHRIS POCT-GLUCOSE [id number] 15:55:00 Test Item Value Reference Range Interpretation Comments POC-GLUCOSE METER 95 mg/dL 70-110 : TESTED A T [facility] 6720 (BEAKER) (test code = [facility], [facility]) 72855: Wildlife Refuge Manager/Techni estefani ID = [id number] for David s, Betzy POCT-GLUCOSE [id number] 11:37:00 Test Item Value Reference Range Interpretation Comments POC-GLUCOSE METER 82 mg/dL 70-110 : TESTED A T [facility] 6720 (BEAKER) (test code = [facility], [facility]) 71211: Wildlife Refuge Manager/Techni estefani ID = [id number] for David s, Betzy POCT-GLUCOSE [id number] 07:28:00 Test Item Value Reference Range Interpretation Comments POC-GLUCOSE METER 75 mg/dL 70-110 : TESTED A T [facility] 6720 (BEAKER) (test code = [facility], [facility]) 54009: Wildlife Refuge Manager/Techni estefani ID = [id number] for David s, Betzy POCT-GLUCOSE [id number] 22:59:00 Test Item Value Reference Range Interpretation Comments POC-GLUCOSE METER 104 mg/dL 70-110 : TESTED A T [facility] 6720 (BEAKER) (test code = [facility], [facility]) 23224: Wildlife Refuge Manager/Techni estefani ID = [id number] for RE CHRISTINS, TUYET POCT-GLUCOSE [id number] 16:15:00 Test Item Value Reference Range Interpretation Comments POC-GLUCOSE METER 121 mg/dL 70-110 H : TESTED A T [facility] 6720 (BEAKER) (test code = [facility], [facility]) 97594: Wildlife Refuge Manager/Techni estefani ID = [id number] for Da vis, Betzy POCT-GLUCOSE [id number] 11:53:00 Test Item Value Reference Range Interpretation Comments POC-GLUCOSE METER 110 mg/dL 70-110 : TESTED A T [facility] 6720 (BEAKER) (test code = [facility] Jose [facility], 1538) 69867: Wildlife Refuge Manager/Techni estefani ID = [id number] for Betzy Whitmore POCT-GLUCOSE [id number] 07:58:00 Test Item Value Reference Range Interpretation Comments POC-GLUCOSE METER 72 mg/dL 70-110 : TESTED A T [facility] 6720 (BEAKER) (test code = [facility] Jose [facility], 1538) 41300: Wildlife Refuge Manager/Techni estefani ID = [id number] for Betzy Marie BASIC METABOLIC [id number] 05:59:00 Test Item Value Reference Range Interpretation [...] S NOT APPLICABLE FOR DIALYSIS PATIEN TS. Wildlife Refuge Manager ID - EDASICBC W/PLT COUNT & AUTO [id number] 05:30:00 Test Item Value Reference Range Interpretation [...] PERCENT (BEAKER) (test code = 2801) POCT-GLUCOSE [id number] 22:53:00 Test Item Value Reference Range Interpretation Comments POC-GLUCOSE METER 90 mg/dL 70-110 : TESTED A T [facility] 6720 (BEAKER) (test code = [facility], 1538) 27175: Wildlife Refuge Manager/Techni estefani ID = [id number] for JUAN MANUEL NICHOLAS REJI POCT-GLUCOSE [id number] 15:59:00 Test Item Value Reference Range Interpretation Comments POC-GLUCOSE METER 109 mg/dL 70-110 : TESTED A T [facility] 6720 (BEAKER) (test code = [facility], 1538) 73677: Wildlife Refuge Manager/Techni estefani ID = [id number] for Da vis, Betzy POCT-GLUCOSE [id number] 21:40:00 Test Item Value Reference Range Interpretation Comments POC-GLUCOSE METER 110 mg/dL 70-110 : TESTED A T [facility] 6720 (BEAKER) (test code = [facility], 1538) 66667: Wildlife Refuge Manager/Techni estefani ID = [id number] for JOSE RIZO, REJI POCT-GLUCOSE [id number] 16:44:00 Test Item Value Reference Range Interpretation Comments POC-GLUCOSE METER 110 mg/dL 70-110 : TESTED A T [facility] 6720 (BEAKER) (test code [facility], = 1538) 37320: Wildlife Refuge Manager/Techni estefani ID = [id number] for WILS ON, SHASTANIE POCT-GLUCOSE [id number] 11:45:00 Test Item Value Reference Range Interpretation Comments POC-GLUCOSE METER 88 mg/dL 70-110 : TESTED A T [facility] 6720 (BEAKER) (test code = [facility], 153) 34047: Wildlife Refuge Manager/Techni estefani ID = [id number] for WILS ON, SHASTANIE POCT-GLUCOSE [id number] 08:02:00 Test Item Value Reference Range Interpretation Comments POC-GLUCOSE METER 88 mg/dL 70-110 : TESTED A T [facility] 6720 (BEAKER) (test code = [facility], 1538) 30704: Wildlife Refuge Manager/Techni estefani ID = [id number] for VICKIE N, MARLENI POCT-GLUCOSE [id number] 21:05:00 Test Item Value Reference Range Interpretation Comments POC-GLUCOSE METER 118 mg/dL 70-110 H : TESTED A T [facility] 6720 (BEAKER) (test code = [facility], 1538) 35290: Wildlife Refuge Manager/Techni estefani ID = [id number] for IRVIN BALDERASNICA POCT-GLUCOSE [id number] 16:34:00 Test Item Value Reference Range Interpretation Comments POC-GLUCOSE METER 131 mg/dL 70-110 H : TESTED A T [facility] 6720 (BEAKER) (test code = [facility], 153) 23678: Wildlife Refuge Manager/Techni estefani ID = [id number] for DIXON TIRADO STEVE ANAEROBIC [id number] 11:42:00 Test Item Value Reference Range Interpretation Comments CULTURE (BEAKER) (test No anaerobes isolated code = 1095) POCT-GLUCOSE [id number] 21:38:00 Test Item Value Reference Range Interpretation Comments POC-GLUCOSE METER 111 mg/dL 70-110 H : TESTED A T [facility] 6720 (BEAKER) (test code = [facility], 153) 66621: Wildlife Refuge Manager/Techni estefani ID = [id number] for IRVIN BALDERASNICA POCT-GLUCOSE [id number] 17:39:00 Test Item Value Reference Range Interpretation Comments POC-GLUCOSE METER 106 mg/dL 70-110 : TESTED A T [facility] 6720 (BEAKER) (test code = [facility], 153) 50767: Wildlife Refuge Manager/Techni estefani ID = [id number] for LEW RKER, NE POCT-GLUCOSE [id number] 11:36:00 Test Item Value Reference Range Interpretation Comments POC-GLUCOSE METER 109 mg/dL 70-110 : TESTED A T [facility] 6720 (BEAKER) (test code = [facility], 153) 90202: Wildlife Refuge Manager/Techni estefani ID = [id number] for PA RKER, NE POCT-GLUCOSE [id number] 08:59:00 Test Item Value Reference Range Interpretation Comments POC-GLUCOSE METER 75 mg/dL 70-110 : TESTED A T [facility] 6720 (BEAKER) (test code = [facility], 153) 14714: Wildlife Refuge Manager/Techni estefani ID = [id number] for FAITH WARD, NE POCT-GLUCOSE [id number] 21:58:00 Test Item Value Reference Range Interpretation Comments POC-GLUCOSE METER 103 mg/dL 70-110 : TESTED A T [facility] 6720 (BEAKER) (test code = DASIA Garcia [facility], 1538) 52394: Wildlife Refuge Manager/Techni estefani ID = [id number] for Zoraida Handley POCT-GLUCOSE [id number] 17:38:00 Test Item Value Reference Range Interpretation Comments POC-GLUCOSE METER 107 mg/dL 70-110 : [facility] (BEAKER[facility] (test code = [facility] Jose [facility], 1538) 34359: Wildlife Refuge Manager/Techni estefani ID = [id number] for PA PRINCESS GEORGE POCT-GLUCOSE [id number] 12:56:00 Test Item Value Reference Range Interpretation Comments POC-GLUCOSE METER 125 mg/dL 70-110 H : TESTED A T [facility] 6720 (BEAKER) (test code = [facility] Jose [facility], 1538) 13725: Wildlife Refuge Manager/Techni estefani ID = [id number] for PRINCESS LAURA SARS-COV2/RT-PCR ([facility])2020-06-02 09:39:00 Test Item Value Reference Range Interpretation Comments SARS-COV2/RT-PCR (test Negative Not Detected, Negative, code = 7967533) See external report for linked test SARS-COV-2 PERFORMING LAB [facility] (test code = 8383868) Negative result for this test determines that [...] of the Act.Fact Sheet for Healthcare Prov iders:https://www.[employer]/sites/default/files/product/documents/Fact_Sheet_HC _Jdunxanbp_Vafx_KBVD-JwQ-4.pdfFact Sheet for Healthcare Patients:https://www.[employer]/sites/default/files/product/docume nts/Shgt_Cuyrk_Lycipbhq_Lomg_DPLS-QlX-5.pdfPerforming Laboratory:[facility], [place] [address]XIOT-[facility] METER 2020-06-02 08:48:00 Test Item Value Reference Range Interpretation Comments POC-GLUCOSE METER 124 mg/dL 70-110 H : TESTED A T [facility] 6720 (BEAKER) (test code = DASIA Garcia [facility], 1538) 77876: Wildlife Refuge Manager/Techni estefani ID = [id number] for LEW GEORGE [facility] BASIC METABOLIC [id number] 08:14:00 Test Item Value Reference Range Interpretation [...] S NOT APPLICABLE FOR DIALYSIS PATIEN TS. Wildlife Refuge Manager ID - TIAGO [id number] 08:10:00 Test Item Value Reference Range Interpretation Comments PHOSPHORUS (BEAKER) (test code = 7.0 mg/dL 2.3-4.7 H 604) Wildlife Refuge Manager ID - TIAGO CVITAMIN B12 AND [id number] 07:23:00 Test Item Value Reference Range Interpretation Comments VITAMIN B12 (BEAKER) 441 pg/mL 213-816 (test code = 774) FOLATE (BEAKER) 5.90 ng/mL See_Comment L [Automated message] (test code = 362) The system which generated this result transmitted ref erence range: >=7.00. The reference range was not used to interpr et this result as normal/abnormal . Wildlife Refuge Manager ID - JAQUELINE MAURO, TIBC, % SAT. (WITHOUT FERRITIN)2020-06-02 06:48:00 Test Item Value Reference Range Interpretation Comments IRON (BEAKER) (test code = 547) 29.0 ug/dL 40.0-160.0 L TOTAL IRON BINDING CAPACITY 166 ug/dL 250-450 L (BEAKER) (test code = 769) IRON % SATURATION (2) (BEAKER) 17 % 20-55 L (test code = 2590) Wildlife Refuge Manager ID - JAQUELINE MCBC (HEMOGRAM ONLY)2020-06-02 06:37:00 [...] 0-0 (BEAKER) (test code = 413) POCT-GLUCOSE [id number] 21:28:00 Test Item Value Reference Range Interpretation Comments POC-GLUCOSE METER 117 mg/dL 70-110 H : TESTED A T [facility] 6720 (BEAKER) (test code = [facility] [employer], 1538) 63186: Wildlife Refuge Manager/Techni estefani ID = [id number] for REJI MONTOYA POCT-GLUCOSE [id number] 17:07:00 Test Item Value Reference Range Interpretation Comments POC-GLUCOSE METER 107 mg/dL 70-110 : TESTED A T [facility] 6720 (BEAKER) (test code = [facility] [employer] [facility], 1538) 94652: Wildlife Refuge Manager/Techni estefani ID = [id number] for Kingsley Haley [id number] 16:04:00 Test Item Value Reference Range Interpretation Comments FERRITIN (BEAKER) (test code = 322.82 ng/mL 5.00-275.00 H 361) Wildlife Refuge Manager ID - DBSURGICALLY OBTAINED CULTURE + GRAM [id number] 12:53:00 Test Item Value Reference Interpretation Comments [...] gram negative (BEAKER) (test code = rods 742667) GRAM STAIN RESULT <1+ yeast (BEAKER) (test code = 122183) POCT-GLUCOSE [id number] 11:55:00 Test Item Value Reference Range Interpretation Comments POC-GLUCOSE METER 125 mg/dL 70-110 H : TESTED A T [facility] 6720 (BEAKER) (test code = [facility], 153) 00232: Wildlife Refuge Manager/Techni estefani ID = [id number] for Kinsgley Haley POCT-GLUCOSE [id number] 08:56:00 Test Item Value Reference Range Interpretation Comments POC-GLUCOSE METER 85 mg/dL 70-110 : TESTED A T [facility] 6720 (BEAKER) (test code = [facility], [facility]) 12694: Wildlife Refuge Manager/Techni estefani ID = [id number] for Kingsley Lagunas POCT-GLUCOSE [id number] 22:47:00 Test Item Value Reference Range Interpretation Comments POC-GLUCOSE METER 119 mg/dL 70-110 H : TESTED A T [facility] 6720 (BEAKER) (test code = [facility], 153) 55284: Wildlife Refuge Manager/Techni estefani ID = [id number] for REJI MONTOYA POCT-GLUCOSE [id number] 16:45:00 Test Item Value Reference Range Interpretation Comments POC-GLUCOSE METER 123 mg/dL 70-110 H : TESTED A T [facility] 6720 (BEAKER) (test code = [facility], 153) 00870: Wildlife Refuge Manager/Techni estefani ID = [id number] for PRINCESS LAURA POCT-GLUCOSE [id number] 11:29:00 Test Item Value Reference Range Interpretation Comments POC-GLUCOSE METER 129 mg/dL 70-110 H : TESTED A T [facility] 6720 (BEAKER) (test code = [facility], 153) 66374: Wildlife Refuge Manager/Techni estefani ID = [id number] for LEW VAZQUEZ NE POCT-GLUCOSE [id number] 08:48:00 Test Item Value Reference Range Interpretation Comments POC-GLUCOSE METER 98 mg/dL 70-110 : TESTED A T [facility] [facility] (BEAKER) (test code = [facility], 1538) 97059: Wildlife Refuge Manager/Techni estefani ID = [id number] for [facility] BASIC METABOLIC [id number] 06:32:00 Test Item Value Reference Range Interpretation [...] S NOT APPLICABLE FOR DIALYSIS PATIEN TS. Wildlife Refuge Manager ID - ADMINCBC (HEMOGRAM ONLY)2020-05-31 05:42:00 Test [...] 0-0 (BEAKER) (test code = 413) POCT-GLUCOSE [id number] 21:12:00 Test Item Value Reference Range Interpretation Comments POC-GLUCOSE METER 169 mg/dL 70-110 H : TESTED A T [facility] (BEAKER) (test code = [facility], 153) 12756: Wildlife Refuge Manager/Techni estefani ID = [id number] for Zoraida Handley POCT-GLUCOSE [id number] 16:05:00 Test Item Value Reference Range Interpretation Comments POC-GLUCOSE METER 158 mg/dL 70-110 H : TESTED A T [facility] 6720 (BEAKER) (test code = [facility], 153) 21266: Wildlife Refuge Manager/Techni estefani ID = [id number] for MELODY DOS SANTOS POCT-GLUCOSE [id number] 12:40:00 Test Item Value Reference Range Interpretation Comments POC-GLUCOSE METER 113 mg/dL 70-110 H : TESTED A T [facility] 6720 (BEAKER) (test code = [facility], 153) 62323: Wildlife Refuge Manager/Techni estefani ID = [id number] for MELODY DOS SANTOS SPIN/CONCENTRATION [id number] 09:31:00 Test Item Value Reference Range Interpretation Comments CONCENTRATION CHARGED (BEAKER) (test Done code = 2657) POCT-GLUCOSE [id number] 08:07:00 Test Item Value Reference Range Interpretation Comments POC-GLUCOSE METER 116 mg/dL 70-110 H : TESTED A T [facility] 6720 (BEAKER) (test code = [facility], 153) 91285: Wildlife Refuge Manager/Techni estefani ID = [id number] for MELODY DOS SANTOS POCT-GLUCOSE [id number] 21:03:00 Test Item Value Reference Range Interpretation Comments POC-GLUCOSE METER 194 mg/dL 70-110 H : TESTED A T [facility] 6720 (BEAKER) (test code = [facility], 1538) 86152: Wildlife Refuge Manager/Techni estefani ID = [id number] for REJI MONTOYA HEPATITIS B SURFACE [id number] 19:08:00 Test Item Value Reference Range Interpretation Comments HEPATITIS B SURFACE ANTIGEN (2) Nonreactive Nonreactive (BEAKER) (test code = 2585) Specimen is considered negative for HBsAg.POCT-GLUCOSE [id number] 17:02:00 Test Item Value Reference Range Interpretation Comments POC-GLUCOSE METER 142 mg/dL 70-110 H : TESTED A T [facility] 6720 (BEAKER) (test code = [facility], 1538) 41207: Wildlife Refuge Manager/Techni estefani ID = [id number] for EDSON MEJIA GLUCOSE-STAT [id number] 07:13:00 Test Item Value Reference Range Interpretation Comments GLUCOSE RANDOM (BEAKER) (test code 122 mg/dL 70-110 H = 652) HGB/HCT (H&H) - STAT [id number] 07:13:00 Test Item Value Reference Range Interpretation Comments HEMOGLOBIN (BEAKER) (test code = 10.0 GM/DL 13.0-16.8 L 410) HEMATOCRIT (BEAKER) (test code = 29.0 % 40.0-50.0 L 411) POTASSIUM-STAT [id number] 07:11:00 Test Item Value Reference Range Interpretation Comments POTASSIUM (BEAKER) (test code = 4.6 meq/L 3.6-5.5 379) POCT-GLUCOSE [id number] 06:01:00 Test Item Value Reference Range Interpretation Comments POC-GLUCOSE METER 118 mg/dL 70-110 H : TESTED A T [facility]20 (BEAKER) (test code [facility], = 1538) 73293: Wildlife Refuge Manager/Techni estefani ID = [id number] for JORD AN, LACRYSTAL SARS-COV2/RT-PCR ([facility])2020-05-28 03:28:00 Test Item Value Reference Range Interpretation Comments SARS-COV2/RT-PCR (test Negative Not Detected, Negative, code = 8940337) See external report for linked test SARS-COV-2 PERFORMING LAB [facility] (test code = 6260200) Negative result for this test determines that [...] the Giles SARS-CoV-2 assay.Fact Sheet for Healthcare Providers:https://www.MeetCute.giles/ari/RT_SAR K-SoU-8_OJG_Kdpj_Voxaw_70-072891.pdfFact Sheet for Healthcare Patients:https://www.molecular.giles/s al/ZX_UIUI-FuL-0_Xgcwmug_Tyzt_Qkqry_JE_00-318505Q7.pdfPerforming Laboratory:[facility] [address], [place] [address]JOL AND CREATININE [id number] 14:16:00 Test Item Value Reference Range Interpretation Comments BLOOD UREA NITROGEN 60 mg/dL 7-21 H (BEAKER) (test code = 354) CREATININE (BEAKER) 7.43 mg/dL 0.57-1.25 H (test code = 358) BUN/CREAT RATIO 8 For a normal (BEAKER) (test code individu al on a = 2360795048) normal diet, t he reference inter anthony for the mass ra chuck ranges between 12:1 and 20:1 (BUN i n mg/dL/creatinin e in mg/dL) EGFR (BEAKER) (test 8 mL/min/1.73 ESTIMAT ED GFR IS code = 1092) sq m NOT ACCURATE CREATININE CLEARANCE IN PREDICTING GLOMERULAR FILTRATION RATE . ESTIMATED GFR I S NOT APPLICABLE FOR DIALYSIS PATIEN TS. Wildlife Refuge Manager ID - ANTONY [id number] 14:15:00 Test Item Value Reference Range Interpretation Comments SODIUM (BEAKER) (test code = 381) 136 meq/L 136-145 POTASSIUM (BEAKER) (test code = 4.0 meq/L 3.5-5.1 379) CHLORIDE (BEAKER) (test code = 382) 96 meq/L 98-107 L CO2 (BEAKER) (test code = 355) 25 meq/L 22-29 Wildlife Refuge Manager ID Benjie ANTONY [id number] 14:15:00 Test Item Value Reference Range Interpretation Comments GLUCOSE RANDOM (BEAKER) (test code 164 mg/dL 70-105 H = 652) Wildlife Refuge Manager ID Benjie ANTONY FPT/[id number] 14:01:00 Test Item Value Reference Range Interpretation [...] is 2.5-3.5 for patients with mechanical heart valves.[id number] 13:54:00 Test Item Value Reference Range Interpretation Comments HEMOGLOBIN (BEAKER) (test code = 10.3 GM/DL 13.7-17.5 L 410) Wildlife Refuge Manager ID - [id number] CULTURE + SMEAR (NON-SPUTUM)2020-04-29 [...] code = 994) seen FUNGUS CULTURE + [id number] 00:50:00 Test Item Value Reference Range Interpretation Comments CULTURE (BEAKER) (test No fungus isolated in code = 1095) 28 days FUNGUS SMEAR (BEAKER) No fungi seen (test code = 1406) BASIC METABOLIC [id number] 16:48:00 Test Item Value Reference Range Interpretation [...] = CA) 8.4 MG/DL 8.5-10.1 L SARS-COV2/RT-PCR ([facility])2020-03-27 14:01:00 Test Item Value Reference Range Interpretation Comments SARS-COV2/RT-PCR (test Negative Not Detected, Negative, code = 6025732) See external report for linked test SARS-COV-2 PERFORMING LAB [facility] (test code = 1716031) Negative result for this test determines that [...] of the Act.Fact Sheet for Healthcare Prov iders:https://www.iHELP World.com/sites/default/files/product/documents/Fact_Sheet_HC _Uolxslipu_Xeza_QYRE-StI-1.pdfFact Sheet for Healthcare Patients:https://www.iHELP World.DabKick/sites/default/files/product/docume nts/Gwoa_Dlzdm_Uzejrfva_Crva_WWIW-DdV-0.pdfPerforming Laboratory:[place] [address], [place] [address]QLPKL CULTURE + GRAM [id number] 09:53:00 Test Item Value Reference Range Interpretation [...] No organisms seen (BEAKER) (test code = 456416) POCT-GLUCOSE [id number] 07:57:00 Test Item Value Reference Range Interpretation Comments POC-GLUCOSE METER 87 mg/dL 70-110 : TESTED A T [facility] 6720 (BEAKER) (test code = [facility], 1538) 76338: Wildlife Refuge Manager/Techni estefani ID = [id number] for Alix Jo HEMOGLOBIN AND [id number] 06:56:00 Test Item Value Reference Range Interpretation Comments HEMOGLOBIN (BEAKER) (test code = 8.7 GM/DL 13.7-17.5 L 410) HEMATOCRIT (BEAKER) (test code = 28.0 % 40.1-51.0 L 411) Wildlife Refuge Manager ID - [id number]-GLUCOSE [id number] 00:03:00 Test Item Value Reference Range Interpretation Comments POC-GLUCOSE METER 144 mg/dL 70-110 H : TESTED A T [facility] 6720 (BEAKER) (test code = [facility], 1538) 40746: Wildlife Refuge Manager/Techni estefani ID = [id number] for CRYSTAL RANGEL POCT-GLUCOSE [id number] 18:10:00 Test Item Value Reference Range Interpretation Comments POC-GLUCOSE METER 117 mg/dL 70-110 H : TESTED A T [facility] 6720 (BEAKER) (test code = [facility], 1538) 00662: Wildlife Refuge Manager/Techni estefani ID = [id number] for Avery Levy BASIC METABOLIC [id number] 16:25:00 Test Item Value Reference Range Interpretation [...] S NOT APPLICABLE FOR DIALYSIS PATIEN TS. Wildlife Refuge Manager ID - ANTONY [id number] 16:08:00 Test Item Value Reference Range Interpretation Comments PHOSPHORUS (BEAKER) (test code = 4.1 mg/dL 2.3-4.7 604) Wildlife Refuge Manager ID - ANTONY FCBC W/PLT COUNT & AUTO [id number] 15:56:00 Test Item Value Reference Range Interpretation [...] 417) IMMATURE GRANULOCYTES-RELATIVE 0 % 0-1 PERCENT ([facility]) (test code = 2801) POCT-GLUCOSE [id number] 11:29:00 Test Item Value Reference Range Interpretation Comments POC-GLUCOSE METER 102 mg/dL 70-110 : TESTED A T [facility] 6720 (BEAKER) (test code = [facility], 1538) 96607: Wildlife Refuge Manager/Techni estefani ID = [id number] for ESTEBAN QUIVELJAD POCT-GLUCOSE [id number] 09:21:00 Test Item Value Reference Range Interpretation Comments POC-GLUCOSE METER 94 mg/dL 70-110 : [facility] T [facility] (test code = [facility], 1538) 09523: Wildlife Refuge Manager/Techni estefani ID = [id number] for ESQU IVJAD CAMARA POCT-GLUCOSE [id number] 08:43:00 Test Item Value Reference Range Interpretation Comments POC-GLUCOSE METER 68 mg/dL 70-110 L : TESTED A T [facility]20 ([facility]) (test code = [facility], 1538) 47669: Wildlife Refuge Manager/Techni estefani ID = [id number] for ESQU IVELJAD FUNGUS CULTURE + [id number] 00:31:00 Test Item Value Reference Range Interpretation Comments CULTURE ([facility]) A 1+ Cami (test code = 1095) parapsilo sis FUNGUS SMEAR No fungi seen ([facility]) (test code = 1406) POCT-GLUCOSE [id number] 22:45:00 Test Item Value Reference Range Interpretation Comments POC-GLUCOSE METER 100 mg/dL 70-110 : TESTED A T [facility] 6720 (BEAKER) (test code = [facility], 1538) 09504: Wildlife Refuge Manager/Techni estefani ID = [id number] for TEJINDER MORALES POCT-GLUCOSE [id number] 21:50:00 Test Item Value Reference Range Interpretation Comments POC-GLUCOSE METER 121 mg/dL 70-110 H : TESTED A T [facility] 6720 (BEAKER) (test code = [facility], 1538) 39142: Wildlife Refuge Manager/Techni estefani ID = [id number] for Shruthi Kennedy POCT-GLUCOSE [id number] 17:35:00 Test Item Value Reference Range Interpretation Comments POC-GLUCOSE METER 117 mg/dL 70-110 H : TESTED A T [facility] 6720 (BEAKER) (test code = [facility], 153) 23415: Wildlife Refuge Manager/Techni estefani ID = [id number] for AMADA MEDRANO POCT-GLUCOSE [id number] 11:29:00 Test Item Value Reference Range Interpretation Comments POC-GLUCOSE METER 92 mg/dL 70-110 : TESTED A T [facility] 6720 (BEAKER) (test code = [facility], 1538) 39744: Wildlife Refuge Manager/Techni estefani ID = [id number] for AMADA DUKES POCT-GLUCOSE [id number] 07:20:00 Test Item Value Reference Range Interpretation Comments POC-GLUCOSE METER 76 mg/dL 70-110 : TESTED A T [facility] 6720 (BEAKER) (test code = [facility], [facility]) 77643: Wildlife Refuge Manager/Techni estefani ID = [id number] for AMADA DUKES POCT-GLUCOSE [id number] 21:24:00 Test Item Value Reference Range Interpretation Comments POC-GLUCOSE METER 199 mg/dL 70-110 H : TESTED A T [facility] 6720 (BEAKER) (test code = [facility], 153) 42040: Wildlife Refuge Manager/Techni estefani ID = [id number] for TEJINDER MORALES POCT-GLUCOSE [id number] 18:07:00 Test Item Value Reference Range Interpretation Comments POC-GLUCOSE METER 135 mg/dL 70-110 H : TESTED A T [facility]20 (BEAKER) (test code = [facility], 153) 08982: Wildlife Refuge Manager/Techni estefani ID = [id number] for AMADA MEDRANO CBC W/PLT COUNT & AUTO [id number] 15:25:00 Test Item Value Reference Range Interpretation [...] PERCENT (BEAKER) (test code = 2801) POCT-GLUCOSE [id number] 11:52:00 Test Item Value Reference Range Interpretation Comments POC-GLUCOSE METER 91 mg/dL 70-110 : TESTED A T [facility] 6720 (BEAKER) (test code = [facility], 1538) 08789: Wildlife Refuge Manager/Techni estefani ID = [id number] for AMADA DUKES POCT-GLUCOSE [id number] 07:39:00 Test Item Value Reference Range Interpretation Comments POC-GLUCOSE METER 92 mg/dL 70-110 : TESTED A T [facility] 6720 (BEAKER) (test code = [facility], 1538) 25765: Wildlife Refuge Manager/Techni estefani ID = [id number] for AMADA DUKES BASIC METABOLIC [id number] 07:22:00 Test Item Value Reference Range Interpretation [...] S NOT APPLICABLE FOR DIALYSIS PATIEN TS. Wildlife Refuge Manager ID - PIAYA LPOCT-GLUCOSE [id number] 21:35:00 Test Item Value Reference Range Interpretation Comments POC-GLUCOSE METER 115 mg/dL 70-110 H : TESTED A T [facility] 6720 (BEAKER) (test code = [facility], 1538) 13219: Wildlife Refuge Manager/Techni estefani ID = [id number] for CRYSTAL RANGEL POCT-GLUCOSE [id number] 17:07:00 Test Item Value Reference Range Interpretation Comments POC-GLUCOSE METER 124 mg/dL 70-110 H : TESTED A T [facility] 6720 (BEAKER) (test code = [facility], 1538) 09838: Wildlife Refuge Manager/Techni estefani ID = [id number] for Alix Guerra POCT-GLUCOSE [id number] 12:54:00 Test Item Value Reference Range Interpretation Comments POC-GLUCOSE METER 96 mg/dL 70-110 : TESTED A T [facility] 6720 (BEAKER) (test code = [facility], 1538) 91341: Wildlife Refuge Manager/Techni estefani ID = [id number] for COLLINS SIFUENTES POCT-GLUCOSE [id number] 08:06:00 Test Item Value Reference Range Interpretation Comments POC-GLUCOSE METER 83 mg/dL 70-110 : TESTED A T [facility] 6720 (BEAKER) (test code = [facility], 1538) 96612: Wildlife Refuge Manager/Techni estefani ID = [id number] for COLLINS SIFUENTES BASIC METABOLIC [id number] 07:36:00 Test Item Value Reference Range Interpretation [...] S NOT APPLICABLE FOR DIALYSIS PATIEN TS. Wildlife Refuge Manager ID - PIAYA LPOCT-GLUCOSE [id number] 21:38:00 Test Item Value Reference Range Interpretation Comments POC-GLUCOSE METER 130 mg/dL 70-110 H : TESTED A T [facility] 6720 (BEAKER) (test code = [facility], 1538) 93760: Wildlife Refuge Manager/Techni estefani ID = [id number] for CRYSTAL RANGEL POCT-GLUCOSE [id number] 16:28:00 Test Item Value Reference Range Interpretation Comments POC-GLUCOSE METER 127 mg/dL 70-110 H : TESTED A T [facility] 6720 (BEAKER) (test code = [facility], 1538) 19721: Wildlife Refuge Manager/Techni estefani ID = [id number] for JAD SALGUERO POCT-GLUCOSE [id number] 11:41:00 Test Item Value Reference Range Interpretation Comments POC-GLUCOSE METER 143 mg/dL 70-110 H : TESTED A T [facility] 6720 (BEAKER) (test code = [facility], 1538) 94157: Wildlife Refuge Manager/Techni estefani ID = [id number] for JAD SALGUERO POCT-GLUCOSE [id number] 08:03:00 Test Item Value Reference Range Interpretation Comments POC-GLUCOSE METER 86 mg/dL 70-110 : TESTED A T [facility]20 (BEAKER) (test code = [facility], 1538) 00538: Wildlife Refuge Manager/Techni estfeani ID = [id number] for JAD MICHAEL BASIC METABOLIC [id number] 07:41:00 Test Item Value Reference Range Interpretation [...] S NOT APPLICABLE FOR DIALYSIS PATIEN TS. Wildlife Refuge Manager ID - JAQUELINE MCBC W/PLT COUNT & AUTO [id number] 07:15:00 Test Item Value Reference Range Interpretation [...] PERCENT (BEAKER) (test code = 2801) POCT-GLUCOSE [id number] 21:13:00 Test Item Value Reference Range Interpretation Comments POC-GLUCOSE METER 146 mg/dL 70-110 H : TESTED A T [facility] 6720 (BEAKER) (test code = [facility], 1538) 90539: Wildlife Refuge Manager/Techni estefani ID = [id number] for CRYSTAL RANGEL POCT-GLUCOSE [id number] 17:37:00 Test Item Value Reference Range Interpretation Comments POC-GLUCOSE METER 140 mg/dL 70-110 H : TESTED A T [facility] 6720 (BEAKER) (test code = [facility], 1538) 85470: Wildlife Refuge Manager/Techni estefani ID = [id number] for JAD SALGUERO POCT-GLUCOSE [id number] 13:12:00 Test Item Value Reference Range Interpretation Comments POC-GLUCOSE METER 78 mg/dL 70-110 : TESTED A T [facility] 6720 (BEAKER) (test code = [facility], 1538) 19939: Wildlife Refuge Manager/Techni estefani ID = [id number] for JAD MICHAEL POCT-GLUCOSE [id number] 07:32:00 Test Item Value Reference Range Interpretation Comments POC-GLUCOSE METER 77 mg/dL 70-110 : TESTED A T [facility] 6720 (BEAKER) (test code = [facility], 1538) 89155: Wildlife Refuge Manager/Techni estefani ID = [id number] for JAD MICHAEL BASIC METABOLIC [id number] 07:14:00 Test Item Value Reference Range Interpretation [...] S NOT APPLICABLE FOR DIALYSIS PATIEN TS. Wildlife Refuge Manager ID - [id number] 07:04:00 Test Item Value Reference Range Interpretation Comments PHOSPHORUS (BEAKER) (test code = 5.2 mg/dL 2.3-4.7 H 604) Wildlife Refuge Manager ID - ADMINPOCT-GLUCOSE [id number] 21:39:00 Test Item Value Reference Range Interpretation Comments POC-GLUCOSE METER 148 mg/dL 70-110 H : TESTED A T [facility] 6720 (Access Mobile) (test code = [facility], 1538) 44022: Wildlife Refuge Manager/Techni estefani ID = [id number] for TEJINDER MORALES POCT-GLUCOSE [id number] 17:38:00 Test Item Value Reference Range Interpretation Comments POC-GLUCOSE METER 114 mg/dL 70-110 H : TESTED A T [facility] 6720 (BEAKER) (test code = [facility], 1538) 61809: Wildlife Refuge Manager/Techni estefani ID = [id number] for CLAUDIA GALAVIZ, AMADA POCT-GLUCOSE [id number] 16:11:00 Test Item Value Reference Range Interpretation Comments POC-GLUCOSE METER 93 mg/dL 70-110 : TESTED A T [facility] 6720 (BEAKER) (test code = [facility], 1538) 24591: Wildlife Refuge Manager/Techni estefani ID = [id number] for CHARITY WING, AMADA POCT-GLUCOSE [id number] 14:27:00 Test Item Value Reference Range Interpretation Comments POC-GLUCOSE METER 98 mg/dL 70-110 : TESTED A T [facility]20 (BEAKER) (test code = [facility], 1538) 09724: Wildlife Refuge Manager/Techni estefani ID = [id number] for ANA LAURA ORJESSIIKA POCT-GLUCOSE [id number] 07:48:00 Test Item Value Reference Range Interpretation Comments POC-GLUCOSE METER 101 mg/dL 70-110 : TESTED A T [facility] (BEAKER) (test code = DAS[facility], 1538) 61660: Wildlife Refuge Manager/Techni estefani ID = [id number] for AYLA KELLOGG POCT-GLUCOSE [id number] 07:24:00 Test Item Value Reference Range Interpretation Comments POC-GLUCOSE METER 101 mg/dL 70-110 : TESTED A T [facility] (BEAKER) (test code = D[facility], 1538) 89756: Wildlife Refuge Manager/Techni estefani ID = [id number] for AMADA MEDRANO SARS-COV2/RT-PCR ([facility])2020-03-20 07:17:00 Test Item Value Reference Range Interpretation Comments SARS-COV2/RT-PCR (test Negative Not Detected, Negative, code = 4864992) See external report for linked test SARS-COV-2 PERFORMING LAB [facility] (test code = 4309702) Negative result for this test determines that [...] the Giles SARS-CoV-2 assay.Fact Sheet for Healthcare Providers:https://www.MeetCute.giles/ari/RT_SAR O-PpC-1_XVG_Mvoy_Uvhpw_44-668138.pdfFact Sheet for Healthcare Patients:https://www.MeetCute.giles/s al/WC_LPKM-BoS-9_Drqyorl_Szsp_Pzsne_VR_43-418014I6.pdfPerforming Laboratory:[facility] [address] [place] [address] POCT-GLUCOSE [id number] 21:54:00 Test Item Value Reference Range Interpretation Comments POC-GLUCOSE METER 155 mg/dL 70-110 H : TESTED A T [facility]20 (BEAKER) (test code = [facility], 153) 52025: Wildlife Refuge Manager/Techni estefani ID = [id number] for TEJINDER MORALES ANAEROBIC [id number] 19:28:00 Test Item Value Reference Range Interpretation Comments CULTURE (BEAKER) (test No anaerobes isolated code = 1095) ANAEROBIC [id number] 19:23:00 Test Item Value Reference Range Interpretation Comments CULTURE (BEAKER) (test No anaerobes isolated code = 1095) POCT-GLUCOSE [id number] 17:26:00 Test Item Value Reference Range Interpretation Comments POC-GLUCOSE METER 128 mg/dL 70-110 H : TESTED A T [facility] 6720 (BEAKER) (test code = [facility], 153) 22661: Wildlife Refuge Manager/Techni estefani ID = [id number] for AMADA MEDRANO POCT-GLUCOSE [id number] 12:04:00 Test Item Value Reference Range Interpretation Comments POC-GLUCOSE METER 93 mg/dL 70-110 : TESTED A T [facility]20 (BEAKER) (test code = [facility], 153) 62795: Wildlife Refuge Manager/Techni estefani ID = [id number] for AMADA DUKES BASIC METABOLIC [id number] 09:28:00 Test Item Value Reference Range Interpretation [...] S NOT APPLICABLE FOR DIALYSIS PATIEN TS. Wildlife Refuge Manager ID - PIAYA LPOCT-GLUCOSE [id number] 21:30:00 Test Item Value Reference Range Interpretation Comments POC-GLUCOSE METER 133 mg/dL 70-110 H : TESTED A T [facility]20 (BEAKER) (test code = [facility], 1538) 86636: Wildlife Refuge Manager/Techni estefani ID = [id number] for CRYSTAL RANGEL POCT-GLUCOSE [id number] 19:29:00 Test Item Value Reference Range Interpretation Comments POC-GLUCOSE METER 191 mg/dL 70-110 H : TESTED A T [facility]20 (BEAKER) (test code = [facility], 1538) 31477: Wildlife Refuge Manager/Techni estefani ID = [id number] for NICOLE ALYCIAFARZANEH MARIFER POCT-GLUCOSE [id number] 11:31:00 Test Item Value Reference Range Interpretation Comments POC-GLUCOSE METER 119 mg/dL 70-110 H : TESTED A T [facility] 6720 (BEAKER) (test code = [facility], 1538) 16553: Wildlife Refuge Manager/Techni estefani ID = [id number] for ESTEBAN GARZONJAD POCT-GLUCOSE [id number] 07:32:00 Test Item Value Reference Range Interpretation Comments POC-GLUCOSE METER 115 mg/dL 70-110 H : TESTED A T [facility] 6720 (BEAKER) (test code = [facility] [place], 1538) 76491: Wildlife Refuge Manager/Techni estefani ID = [id number] for JAD SALGUERO BASIC METABOLIC [id number] 06:39:00 Test Item Value Reference Range Interpretation [...] S NOT APPLICABLE FOR DIALYSIS PATIEN TS. Wildlife Refuge Manager ID - PIAYA LCBC W/PLT COUNT & AUTO [id number] 06:01:00 Test Item Value Reference Range Interpretation [...] PERCENT (BEAKER) (test code = 2801) POCT-GLUCOSE [id number] 21:16:00 Test Item Value Reference Range Interpretation Comments POC-GLUCOSE METER 145 mg/dL 70-110 H : TESTED A T [facility] 6720 (BEAKER) (test code = [facility], 1538) 83857: Wildlife Refuge Manager/Techni estefani ID = [id number] for CRYSTAL RANGEL TISSUE [id number] 19:02:00Surgical Pathology Report Case: [id number] Authorizing Provider: Star Cloud DPM Collected: 03/13/2020 12:32 PM Ordering Location: [facility] Received: 03/13/2020 02:59 PM PERIOPERATIVE SERVICES Pathologist: Vandana Beverly MD Specimen: Metatarsal, Right, base of the first metatarsal bone RIGHT FOOT, BASE OF 1ST METATARSAL, NON- HEALING WOUND, DEBRIDEMENT: - GANGRENOUS NECROSIS INVOLVING SKIN AND SUBCUTANEOUS TISSUE - ACUTE OSTEOMYELITIS, SEVERE Signing Pathologist Direct Phone Line: [phone] signed by Vandana Beverly MD on 03/17/2020 at 7:02 [id number]; [id number] surgical wound, sequela Metatarsal, rightReceived in formalin [...] reveals a gardner-yellow, firm, trabeculated cut surface. Director Of Land sections are submitted as follows:Section codeA1-skin and soft vystnwT3-R7-utut following decalcificationPilar LEW Caraballo HT (ASCP)PERFORMEDThe interpretation of this case included the use of immunohistochemistry or special stains.Control Slides Examined: In-house known positive controls were evaluated along with the test tissue. These control slides run alongside of the patients sample show appropriate staining. Internal positive and negative controls when availableare evaluated Immunohistochemistry technical testing was performed at [facility]ology [facility] where it was developed and [...] to perform high complexity clinical laboratory testing.POCT-GLUCOSE [id number] 17:26:00 Test Item Value Reference Range Interpretation Comments POC-GLUCOSE METER 145 mg/dL 70-110 H : TESTED A T [facility] 6720 (BEAKER) (test code = DASIA Garcia [place], 1538) [id number]: Wildlife Refuge Manager/Techni estefani ID = [id number] for Sabine Vazquez POCT-GLUCOSE [id number] 07:31:00 Test Item Value Reference Range Interpretation Comments POC-GLUCOSE METER 94 mg/dL 70-110 : TESTED A T [facility] 6720 (BEAKER) (test code = DASIA [place], 1538) 178[address]: Wildlife Refuge Manager/Techni estefani ID = [id number] for JAD MICHAEL CBC W/PLT COUNT & AUTO [id number] 06:23:00 Test Item Value Reference Range Interpretation [...] PERCENT (BEAKER) (test code = 2801) POCT-GLUCOSE [id number] 06:14:00 Test Item Value Reference Range Interpretation Comments POC-GLUCOSE METER 97 mg/dL 70-110 : TESTED A T [facility] 6720 (BEAKER) (test code = [place], 1538) 67[address]: Wildlife Refuge Manager/Techni estefani ID = [id number] for TEJINDER KITCHEN BASIC METABOLIC [id number] 06:14:00 Test Item Value Reference Range Interpretation [...] S NOT APPLICABLE FOR DIALYSIS PATIEN TS. Wildlife Refuge Manager ID - EDASIBLOOD [id number] 00:01:00 Test Item Value Reference Range Interpretation Comments CULTURE (BEAKER) (test No growth in 5 days code = 1095) BLOOD [id number] 00:01:00 Test Item Value Reference Range Interpretation Comments CULTURE (BEAKER) (test No growth in 5 days code = 1095) POCT-GLUCOSE [id number] 21:35:00 Test Item Value Reference Range Interpretation Comments POC-GLUCOSE METER 169 mg/dL 70-110 H : TESTED A T [facility] 6720 (BEAKER) (test code = [facility], 1538) 21383: Wildlife Refuge Manager/Techni estefani ID = [id number] for TEJINDER MORALES POCT-GLUCOSE [id number] 17:54:00 Test Item Value Reference Range Interpretation Comments POC-GLUCOSE METER 133 mg/dL 70-110 H : TESTED A T [facility] 6720 (BEAKER) (test code = [facility], 1538) 17271: Wildlife Refuge Manager/Techni estefani ID = [id number] for JAQUI SKELTON POCT-GLUCOSE [id number] 12:50:00 Test Item Value Reference Range Interpretation Comments POC-GLUCOSE METER 110 mg/dL 70-110 : TESTED A T [facility] 6720 (BEAKER) (test code = [facility], 1538) 21600: Wildlife Refuge Manager/Techni estefani ID = [id number] for JAQUI SKELTON SURGICALLY OBTAINED CULTURE + GRAM [id number] 09:39:00 Test Item Value Reference Range Interpretation [...] organisms seen RESULT (BEAKER) (test code = 494010) SURGICALLY OBTAINED CULTURE + GRAM [id number] 09:39:00 Test Item Value Reference Range Interpretation [...] RESULT (BEAKER) negative rods (test code = 811390) POCT-GLUCOSE [id number] 08:12:00 Test Item Value Reference Range Interpretation Comments POC-GLUCOSE METER 88 mg/dL 70-110 : TESTED A T [facility] 6720 (BEAKER) (test code = [facility] [place], 1538) 85415: Wildlife Refuge Manager/Techni estefani ID = [id number] for GAUTAM RUIZ (Krysten)EFRAIN POCT-GLUCOSE [id number] 07:19:00 Test Item Value Reference Range Interpretation Comments POC-GLUCOSE METER 97 mg/dL 70-110 : TESTED A T [facility] 6720 (BEAKER) (test code = [facility], 1538) 45390: Wildlife Refuge Manager/Techni estefani ID = [id number] for NATE JUAN BASIC METABOLIC [id number] 07:19:00 Test Item Value Reference Range Interpretation [...] S NOT APPLICABLE FOR DIALYSIS PATIEN TS. Wildlife Refuge Manager ID - [id number] 07:08:00 Test Item Value Reference Range Interpretation Comments MAGNESIUM (BEAKER) (test code = 2.1 mg/dL 1.6-2.6 627) Wildlife Refuge Manager ID - EDASICBC W/PLT COUNT & AUTO [id number] 06:30:00 Test Item Value Reference Range Interpretation [...] PERCENT (BEAKER) (test code = 2801) POCT-GLUCOSE [id number] 20:33:00 Test Item Value Reference Range Interpretation Comments POC-GLUCOSE METER 129 mg/dL 70-110 H : TESTED A T [facility] 6720 (BEAKER) (test code = [facility], 1538) 35532: Wildlife Refuge Manager/Techni estefani ID = [id number] for JAD SALGUERO POCT-GLUCOSE [id number] 17:20:00 Test Item Value Reference Range Interpretation Comments POC-GLUCOSE METER 108 mg/dL 70-110 : TESTED A T [facility] 6720 (BEAKER) (test code = [facility], [facility]) 90809: Wildlife Refuge Manager/Techni estefani ID = [id number] for KO LLEADE, RITCHEL POCT-GLUCOSE [id number] 11:17:00 Test Item Value Reference Range Interpretation Comments POC-GLUCOSE METER 115 mg/dL 70-110 H : TESTED A T [facility] 6720 (BEAKER) (test code = [facility], 1538) 44937: Wildlife Refuge Manager/Techni estefani ID = [id number] for OK BERTHA, ANYA POCT-GLUCOSE [id number] 08:18:00 Test Item Value Reference Range Interpretation Comments POC-GLUCOSE METER 87 mg/dL 70-110 : TESTED A T [facility] 6720 (BEAKER) (test code = [facility], 1538) 99719: Wildlife Refuge Manager/Techni estefani ID = [id number] for KOLSteve EADE, RITCHEL [id number] 07:32:00 Test Item Value Reference Range Interpretation Comments MAGNESIUM (BEAKER) (test code = 2.0 mg/dL 1.6-2.6 627) Wildlife Refuge Manager ID - EDASIBASIC METABOLIC [id number] 07:32:00 Test Item Value Reference Range Interpretation [...] S NOT APPLICABLE FOR DIALYSIS PATIEN TS. Wildlife Refuge Manager ID - EDASICBC W/PLT COUNT & AUTO [id number] 07:08:00 Test Item Value Reference Range Interpretation [...] PERCENT (BEAKER) (test code = 2801) POCT-GLUCOSE [id number] 22:22:00 Test Item Value Reference Range Interpretation Comments POC-GLUCOSE METER 180 mg/dL 70-110 H : TESTED Vikas T [facility] 6720 (BEAKER) (test code = CHRISTOSDELPHINE Garcia [facility], 1538) 44139: Wildlife Refuge Manager/Techni estefani ID = [id number] for CRYSTAL RANGEL HEPATITIS B SURFACE [id number] 17:23:00 Test Item Value Reference Range Interpretation Comments HEPATITIS B SURFACE ANTIGEN (2) Nonreactive Nonreactive (BEAKER) (test code = 2585) Specimen is considered negative for HBsAg.SPIN/CONCENTRATION [id number] 14:24:00 Test Item Value Reference Range Interpretation Comments CONCENTRATION CHARGED (BEAKER) (test Done code = 2657) SPIN/CONCENTRATION [id number] 14:23:00 Test Item Value Reference Range Interpretation Comments CONCENTRATION CHARGED (BEAKER) (test Done code = 2657) POCT-GLUCOSE [id number] 12:00:00 Test Item Value Reference Range Interpretation Comments POC-GLUCOSE METER 84 mg/dL 70-110 : TESTED A T [facility] 6720 (BEAKER) (test code = [facility], 1538) 68476: Wildlife Refuge Manager/Techni estefani ID = [id number] for AMADA DUKES BASIC METABOLIC [id number] 09:03:00 Test Item Value Reference Range Interpretation [...] S NOT APPLICABLE FOR DIALYSIS PATIEN TS. Wildlife Refuge Manager ID - DANITZA [id number] 08:43:00 Test Item Value Reference Range Interpretation Comments MAGNESIUM (BEAKER) (test code = 2.4 mg/dL 1.6-2.6 627) Wildlife Refuge Manager ID - PIAYA LPOCT-GLUCOSE [id number] 07:47:00 Test Item Value Reference Range Interpretation Comments POC-GLUCOSE METER 99 mg/dL 70-110 : TESTED A T [facility] 6720 (BEAKER) (test code = [facility], 1538) 95426: Wildlife Refuge Manager/Techni estefani ID = [id number] for AMADA DUKES POCT-GLUCOSE [id number] 22:12:00 Test Item Value Reference Range Interpretation Comments POC-GLUCOSE METER 139 mg/dL 70-110 H : TESTED A T [facility] 6720 (BEAKER) (test code = [facility], 1538) 47031: Wildlife Refuge Manager/Techni estefani ID = [id number] for TEJINDER MORALES POCT-GLUCOSE [id number] 17:34:00 Test Item Value Reference Range Interpretation Comments POC-GLUCOSE METER 157 mg/dL 70-110 H : TESTED A T [facility] 6720 (BEAKER) (test code = [facility], 1538) 18700: Wildlife Refuge Manager/Techni estefani ID = [id number] for DANK GALINDO (V), EFRAIN POCT-GLUCOSE [id number] 14:08:00 Test Item Value Reference Range Interpretation Comments POC-GLUCOSE METER 94 mg/dL 70-110 : TESTED A T [facility] 6720 (BEAKER) (test code = [facility], 1538) 28765: Wildlife Refuge Manager/Techni estefani ID = [id number] for ZENIA SHARMA HGB/HCT (H&H) - STAT [id number] 10:02:00 Test Item Value Reference Range Interpretation Comments HEMOGLOBIN (BEAKER) (test code = 8.5 GM/DL 13.0-16.8 L 410) HEMATOCRIT (BEAKER) (test code = 25.0 % 40.0-50.0 L 411) POTASSIUM-STAT [id number] 09:56:00 Test Item Value Reference Range Interpretation Comments POTASSIUM (BEAKER) (test code = 3.6 meq/L 3.6-5.5 379) POCT-GLUCOSE [id number] 07:53:00 Test Item Value Reference Range Interpretation Comments POC-GLUCOSE METER 97 mg/dL 70-110 : TESTED A T [facility] 6720 (BEAKER) (test code = [facility], 1538) 84114: Wildlife Refuge Manager/Techni estefani ID = [id number] for COLLINS SIFUENTES POCT-GLUCOSE [id number] 22:01:00 Test Item Value Reference Range Interpretation Comments POC-GLUCOSE METER 173 mg/dL 70-110 H : TESTED A T [facility] 6720 (BEAKER) (test code = [facility], 1538) 58196: Wildlife Refuge Manager/Techni estefani ID = [id number] for ESTEBAN SANTACRUZULISESJAD Wilson POCT-GLUCOSE [id number] 18:20:00 Test Item Value Reference Range Interpretation Comments POC-GLUCOSE METER 161 mg/dL 70-110 H : TESTED A T [facility] 6720 (BEAKER) (test code SHENA [facility], = 1538) 03569: Wildlife Refuge Manager/Techni estefani ID = [id number] for COLLINS SIFUENTES POCT-GLUCOSE [id number] 12:22:00 Test Item Value Reference Range Interpretation Comments POC-GLUCOSE METER 94 mg/dL 70-110 : TESTED A T [facility] 6720 (BEAGA) (test code = DASIA Garcia [facility], 1538) 90869: Wildlife Refuge Manager/Techni estefani ID = [id number] for COLLINS SIFUENTES SARS-COV2/RT-PCR ([facility])2020-03-12 12:11:00 Test Item Value Reference Range Interpretation Comments SARS-COV2/RT-PCR (test code Negative Not Detected, Negative, = 4097683) See external report for linked test SARS-COV-2 PERFORMING LAB [facility] (test code = 4140374) Negative results do not preclude SARS-CoV-2 infection [...] of the Act.Fact Sheet for Healthcare Pro viders:https://www.eventuosity.com/Documents/Xpert%20Xpress%20SARS%20CoV-2/Fact%20Sh eets/302-3802%24LXFT-BZL-2%20HEALTHCARE%20PROVIDERS%20FACT%20SHEET.pdfFact Sheet for Healthcare Patients:https://www.Lemonwise id.com/Documents/Xpert%20Xpress%20SARS%20CoV-2/Fact%20Sheets/3023801%20SARS-COV -2%20PATIENT%20FACT%20SHEET.pdfPerforming Laboratory:[facility] [place], [place] [address]TQBM-YSMRZRL [id number] 08:44:00 Test Item Value Reference Range Interpretation Comments POC-GLUCOSE METER 92 mg/dL 70-110 : TESTED A T [facility] 6720 (BEAKER) (test code = DASIA Garcia [facility], 1538) 50464: Wildlife Refuge Manager/Techni estefani ID = [id number] for COLLINS SIFUENTES HEMOGLOBIN [id number] 08:17:00 Test Item Value Reference Range Interpretation Comments HEMOGLOBIN A1C (BEAKER) (test code = 5.6 % 4.3-6.1 368) HEPATIC FUNCTION [id number] 06:07:00 Test Item Value Reference Range Interpretation [...] code = < U/L 6-55 L 347) Wildlife Refuge Manager ID - ADMINC-REACTIVE [id number] 06:06:00 Test Item Value Reference Range Interpretation Comments C-REACTIVE PROTEIN (BEAKER) (test 3.99 mg/dL 0.00-0.50 H code = 676) Wildlife Refuge Manager ID - ADMINBASIC METABOLIC [id number] 06:06:00 Test Item Value Reference Range Interpretation [...] S NOT APPLICABLE FOR DIALYSIS PATIEN TS. Wildlife Refuge Manager ID - ADMINPROTHROMBIN [id number] 04:50:00 Test Item Value Reference Range Interpretation [...] S NOT APPLICABLE FOR DIALYSIS PATIEN TS. Wildlife Refuge Manager ID - PIAYA LOperator ID - PIAYA LCBC W/PLT COUNT & AUTO [id number] 23:42:00 Test Item Value Reference Range Interpretation [...] PERCENT (BEAKER) (test code = 2801) PROTHROMBIN [id number] 23:21:00 Test Item Value Reference Range Interpretation [...] 2.5-3.5 for patients wiht mechanical heart valves.POCT-GLUCOSE [id number] 22:00:00 Test Item Value Reference Range Interpretation Comments POC-GLUCOSE METER 203 mg/dL 70-110 H : TESTED Vikas Velásquez [facility] 6720 (BEAKER) (test code = D[place], 1538) 30004: Wildlife Refuge Manager/Techni estefani ID = [id number] for ROJELIO [employer] CULTURE + SMEAR (NON-SPUTUM)2020-02-25 06:40:00 Test [...] long er being reported. FUNGUS CULTURE + [id number] 16:32:00 Test Item Value Reference Range Interpretation Comments CULTURE (BEAKER) (test No fungus isolated in code = 1095) 28 days FUNGUS SMEAR (BEAKER) No fungal elements seen (test code = 1406) FUNGUS CULTURE + [id number] 16:32:00 Test Item Value Reference Range Interpretation [...] bacilli (test code = 994) seen POCT-GLUCOSE [id number] 12:16:00 Test Item Value Reference Range Interpretation Comments POC-GLUCOSE METER 104 mg/dL 70-110 : [facility] (BEAKER[facility] (test code = DASIA Garcia [facility], 1538) 28015: Wildlife Refuge Manager/Techni estefani ID = [id number] for DA NOEL MARIETA POCT-GLUCOSE [id number] 07:26:00 Test Item Value Reference Range Interpretation Comments POC-GLUCOSE METER 89 mg/dL 70-110 : [facility] (BEAKER) (test code = [place], 1538) 36609: Wildlife Refuge Manager/Techni estefani ID = [id number] for DASG UPTA, CARMELAYITA SARS-COV2/RT-PCR ([facility])2020-01-22 07:13:00 Test Item Value Reference Range Interpretation Comments SARS-COV2/RT-PCR (test Negative Not Detected, Negative, code = 6155650) See external report for linked test SARS-COV-2 PERFORMING LAB [facility] (test code = 7269958) Negative result for this test determines that [...] the [place]iles SARS-CoV-2 assay.Fact Sheet for Healthcare Providers:https://www.MeetCute.Easydiagnosis/ari/RT_SAR C-BtM-1_QZY_Tvap_Cbpri_65-191330.pdfFact Sheet for Healthcare Patients:https://www.MeetCute.Easydiagnosis/s al/BH_THCV-EhX-0_Oxdplml_Rild_Bbmhv_CU_46-065619O7.pdfPerforming Laboratory:[facility] [place] [address] BASIC METABOLIC [id number] 06:27:00 Test Item Value Reference Range Interpretation [...] S NOT APPLICABLE FOR DIALYSIS PATIEN TS. Wildlife Refuge Manager ID - EDASIPOCT-GLUCOSE [id number] 21:15:00 Test Item Value Reference Range Interpretation Comments POC-GLUCOSE METER 123 mg/dL 70-110 H : TESTED A T [facility] 6720 [facility] (test code [facility], = 1538) 76381: Wildlife Refuge Manager/Techni estefani ID = [id number] for BRADEN SWARTZ HEPATITIS B SURFACE [id number] 18:16:00 Test Item Value Reference Range Interpretation Comments HEPATITIS B SURFACE ANTIGEN (2) Nonreactive Nonreactive (BEAKER) (test code = 2585) Specimen is considered negative for HBsAg.POCT-GLUCOSE [id number] 16:50:00 Test Item Value Reference Range Interpretation Comments POC-GLUCOSE METER 110 mg/dL 70-110 : TESTED A T [facility] 6720 (BEAKER) (test code = [facility], 1538) 26617: Wildlife Refuge Manager/Techni estefani ID = [id number] for MONISHA SCHAEFER POCT-GLUCOSE [id number] 07:55:00 Test Item Value Reference Range Interpretation Comments POC-GLUCOSE METER 75 mg/dL 70-110 : TESTED A T [facility] 6720 (BEAKER) (test code = [facility], 1538) 81472: Wildlife Refuge Manager/Techni estefani ID = [id number] for LATOYA DAVILA MONISHA BASIC METABOLIC [id number] 05:59:00 Test Item Value Reference Range Interpretation [...] S NOT APPLICABLE FOR DIALYSIS PATIEN TS. Wildlife Refuge Manager ID - EDASIPOCT-GLUCOSE [id number] 19:48:00 Test Item Value Reference Range Interpretation Comments POC-GLUCOSE METER 133 mg/dL 70-110 H : [facility] (BEAKER[facility] (test code = [facility], 153) 18841: Wildlife Refuge Manager/Techni estefani ID = [id number] for MALGORZATA MORRISON (V)CHRIS POCT-GLUCOSE [id number] 16:50:00 Test Item Value Reference Range Interpretation Comments POC-GLUCOSE METER 106 mg/dL 70-110 : [facility] (BEAKER) (test code = [facility], 153) 92822: Wildlife Refuge Manager/Techni estefani ID = [id number] for SHABNAM JOSE POCT-GLUCOSE [id number] 11:54:00 Test Item Value Reference Range Interpretation Comments POC-GLUCOSE METER 104 mg/dL 70-110 : [facility] (test code = [facility], 153) 18327: Wildlife Refuge Manager/Techni esetfani ID = [id number] for GISELA JACINTO, SHABNAM POCT-GLUCOSE [id number] 07:53:00 Test Item Value Reference Range Interpretation Comments POC-GLUCOSE METER 88 mg/dL 70-110 : PrevTst on Ambulance: (BEAKER) (test code = TESTED AT [place] [id number] 1538) [facility], [address]: Wildlife Refuge Manager/Techni estefani ID = [id number] for SHABNAM KUMAR BASIC METABOLIC [id number] 04:56:00 Test Item Value Reference Range Interpretation [...] S NOT APPLICABLE FOR DIALYSIS PATIEN TS. Wildlife Refuge Manager ID - EDASICBC W/PLT COUNT & AUTO [id number] 04:15:00 Test Item Value Reference Range Interpretation [...] PERCENT (BEAKER) (test code = 2801) POCT-GLUCOSE [id number] 20:55:00 Test Item Value Reference Range Interpretation Comments POC-GLUCOSE METER 128 mg/dL 70-110 H : TESTED A T [facility] 6720 (BEAKER) (test code = D[place], 1538) 42070: Wildlife Refuge Manager/Techni estefani ID = [id number] for FE RNANDO (V), KARI POCT-GLUCOSE [id number] 17:32:00 Test Item Value Reference Range Interpretation Comments POC-GLUCOSE METER 116 mg/dL 70-110 H : TESTED A T [facility] 6720 (BEAKER) ([place], [address]: code = 1538) Wildlife Refuge Manager/Techni estefani ID = [id number] for SINDI SANCHEZ IN HEPATITIS B SURFACE [id number] 07:59:00 Test Item Value Reference Range Interpretation Comments HEPATITIS B SURFACE ANTIBODY < mIU/mL <8.0 (BEAKER) (test code = 647) Wildlife Refuge Manager ID - ADMINBASIC METABOLIC [id number] 06:46:00 Test Item Value Reference Range Interpretation [...] S NOT APPLICABLE FOR DIALYSIS PATIEN TS. Wildlife Refuge Manager ID - ADMINCBC W/PLT COUNT & AUTO [id number] 05:21:00 Test Item Value Reference Range Interpretation [...] code = 2801) HEPATITIS B CORE ANTIBODY, [id number] 03:01:00 Test Item Value Reference Range Interpretation Comments HEPATITIS B CORE TOTAL ANTIBODY Nonreactive Nonreactive ([facility]) (test code = 497) Wildlife Refuge Manager ID - ADMINPOCT-GLUCOSE [id number] 22:59:00 Test Item Value Reference Range Interpretation Comments POC-GLUCOSE METER 110 mg/dL 70-110 : TESTED A [place] [address] ([facility]) (test code = [facility] Jose [facility], [facility]) [address]81: Wildlife Refuge Manager/Techni estefani ID = [id number] for Avery Levy POCT-GLUCOSE [id number] 12:01:00 Test Item Value Reference Range Interpretation Comments POC-GLUCOSE METER 107 mg/dL 70-110 : Notified RN/MD: ([facility]) (test code = TESTED AT [place] [address]) [facility], [address]: Wildlife Refuge Manager/Techni estefani ID = [id number] for HADLEY MELISSA POCT-GLUCOSE [id number] 07:44:00 Test Item Value Reference Range Interpretation Comments POC-GLUCOSE METER 95 mg/dL 70-110 : Notified RN/MD: TESTED ([facility]) (test code = AT [address] 153) [facility], [address]: Wildlife Refuge Manager/Techni estefani ID = [id number] for KELSI , COSHA BASIC METABOLIC [id number] 07:25:00 Test Item Value Reference Range Interpretation [...] S NOT APPLICABLE FOR DIALYSIS PATIEN TS. Wildlife Refuge Manager ID - TIAGO CCBC W/PLT COUNT & AUTO [id number] 04:39:00 Test Item Value Reference Range Interpretation [...] PERCENT (BEAKER) (test code = 2801) POCT-GLUCOSE [id number] 22:19:00 Test Item Value Reference Range Interpretation Comments POC-GLUCOSE METER 115 mg/dL 70-110 H : TESTED A T [facility] 6720 (BEAKER) (test code = [facility], 153) 75765: Wildlife Refuge Manager/Techni estefani ID = [id number] for Lindsay Montoya POCT-GLUCOSE [id number] 16:56:00 Test Item Value Reference Range Interpretation Comments POC-GLUCOSE METER 106 mg/dL 70-110 : TESTED A T [facility] 6720 (BEAKER) (test code = [facility], 153) 22205: Wildlife Refuge Manager/Techni estefani ID = [id number] for ANNMARIE PENNINGTON POCT-GLUCOSE [id number] 12:23:00 Test Item Value Reference Range Interpretation Comments POC-GLUCOSE METER 130 mg/dL 70-110 H : TESTED A T [facility] 6720 (BEAKER) (test code = [facility], 153) 88004: Wildlife Refuge Manager/Techni estefani ID = [id number] for ANNMARIE PENNINGTON POCT-GLUCOSE [id number] 09:12:00 Test Item Value Reference Range Interpretation Comments POC-GLUCOSE METER 96 mg/dL 70-110 : TESTED A T [facility] 6720 (BEAKER) (test code = [facility], 1538) 85766: Wildlife Refuge Manager/Techni estefani ID = [id number] for STEVE DRISCOLL BASIC METABOLIC [id number] 06:45:00 Test Item Value Reference Range Interpretation [...] S NOT APPLICABLE FOR DIALYSIS PATIEN TS. Wildlife Refuge Manager ID - JAQUELINE MCBC W/PLT COUNT & AUTO [id number] 05:59:00 Test Item Value Reference Range Interpretation [...] PERCENT (BEAKER) (test code = 2801) POCT-GLUCOSE [id number] 22:30:00 Test Item Value Reference Range Interpretation Comments POC-GLUCOSE METER 126 mg/dL 70-110 H : TESTED A T [facility] 6720 (BEAKER) (test code = DASIA Garcia [facility], 1538) 20972: Wildlife Refuge Manager/Techni estefani ID = [id number] for Wi alyciaallyson, Otelia ANAEROBIC [id number] 19:52:00 Test Item Value Reference Range Interpretation Comments CULTURE (BEAKER) (test No anaerobes isolated code = 1095) ANAEROBIC [id number] 19:52:00 Test Item Value Reference Range Interpretation Comments CULTURE (BEAKER) (test No anaerobes isolated code = 1095) POCT-GLUCOSE [id number] 16:58:00 Test Item Value Reference Range Interpretation Comments POC-GLUCOSE METER 103 mg/dL 70-110 : TESTED A T [facility] 6720 (BEAKER) (test code = [facility], 1538) 53681: Wildlife Refuge Manager/Techni estefani ID = [id number] for EVONNE RUBY VIAL POCT-GLUCOSE [id number] 11:48:00 Test Item Value Reference Range Interpretation Comments POC-GLUCOSE METER 140 mg/dL 70-110 H : TESTED A T [facility] 6720 (BEAKER) (test code = [facility], 1538) 36022: Wildlife Refuge Manager/Techni estefani ID = [id number] for Ca Olga grissom POCT-GLUCOSE [id number] 07:22:00 Test Item Value Reference Range Interpretation Comments POC-GLUCOSE METER 96 mg/dL 70-110 : TESTED A T [facility] 6720 (BEAKER) (test code = [facility], 1538) 74322: Wildlife Refuge Manager/Techni estefani ID = [id number] for Scot Ambar velásquez (cont ract) BASIC METABOLIC [id number] 06:35:00 Test Item Value Reference Range Interpretation [...] S NOT APPLICABLE FOR DIALYSIS PATIEN TS. Wildlife Refuge Manager ID - EDASICBC W/PLT COUNT & AUTO [id number] 06:02:00 Test Item Value Reference Range Interpretation [...] PERCENT (BEAKER) (test code = 2801) POCT-GLUCOSE [id number] 22:01:00 Test Item Value Reference Range Interpretation Comments POC-GLUCOSE METER 151 mg/dL 70-110 H : TESTED A T [facility] 6720 (BEAKER) (test code = DASIA Garcia [facility], 153) 75710: Wildlife Refuge Manager/Techni estefani ID = [id number] for MARCY MUIR POCT-GLUCOSE [id number] 17:02:00 Test Item Value Reference Range Interpretation Comments POC-GLUCOSE METER 121 mg/dL 70-110 H : TESTED A T [facility] 6720 (BEAKER) (test code = [facility] Jose [facility], 153) 38789: Wildlife Refuge Manager/Techni estefani ID = [id number] for EDSON MEJIA POCT-GLUCOSE [id number] 10:53:00 Test Item Value Reference Range Interpretation Comments POC-GLUCOSE METER 114 mg/dL 70-110 H : TESTED A T [facility] 6720 (BEAKER) (test code = [facility]STOS[facility], 153) [id number]: Wildlife Refuge Manager/Techni estefani ID = [id number] for EDSON MEJIA SURGICALLY OBTAINED CULTURE + GRAM [id number] 09:02:00 Test Item Value Reference Range Interpretation [...] on with MICROBIOLOGY LAB the [facility].Refe r to previous cultur e ofPseudomonas aeruginosa Ceftazidime/Avib S actam (test code = 250) Ceftolozane/Tazo S bactam (test code = 249) Meropenem/Vaborb actam (test code = 253) CULTURE (BEAKER) A <1+ Escheri cayden (test code = coliNon-viable for 5) susceptibility CULTURE (BEAKER) VANCOMYCIN A <1+ Vancomy [...] negative RESULT (BEAKER) rods (test code = 965703) POCT-GLUCOSE [id number] 07:42:00 Test Item Value Reference Range Interpretation Comments POC-GLUCOSE METER 85 mg/dL 70-110 : TESTED A T [facility] 67[facility] (BEAKER) (test code = DASIA Garcia QUISPE [place], 1538) [address]: Wildlife Refuge Manager/Techni estefani ID = [id number] for EDSON ZARAGOZA BASIC METABOLIC [id number] 06:13:00 Test Item Value Reference Range Interpretation [...] S NOT APPLICABLE FOR DIALYSIS PATIEN TS. Wildlife Refuge Manager ID - EDASICBC W/PLT COUNT & AUTO [id number] 05:33:00 Test Item Value Reference Range Interpretation [...] PERCENT (BEAKER) (test code = 2801) POCT-GLUCOSE [id number] 22:55:00 Test Item Value Reference Range Interpretation Comments POC-GLUCOSE METER 91 mg/dL 70-110 : TESTED A T [facility] 6720 (BEAKER) (test code = [facility], 1538) 64880: Wildlife Refuge Manager/Techni estefani ID = [id number] for DARRELL LUDWIG POCT-GLUCOSE [id number] 16:20:00 Test Item Value Reference Range Interpretation Comments POC-GLUCOSE METER 123 mg/dL 70-110 H : TESTED A T [facility] 6720 (BEAKER) (test code = [facility], 1538) 44325: Wildlife Refuge Manager/Techni estefani ID = [id number] for REJI SNEED POCT-GLUCOSE [id number] 11:41:00 Test Item Value Reference Range Interpretation Comments POC-GLUCOSE METER 142 mg/dL 70-110 H : TESTED A T [facility] 6720 (BEAKER) (test code = [facility], 1538) 37159: Wildlife Refuge Manager/Techni estefani ID = [id number] for REJI SNEED POCT-GLUCOSE [id number] 09:19:00 Test Item Value Reference Range Interpretation Comments POC-GLUCOSE METER 115 mg/dL 70-110 H : TESTED A T [facility] 6720 (BEAKER) (test code = [facility], 1538) 14157: Wildlife Refuge Manager/Techni estefani ID = [id number] for REJI SNEED BASIC METABOLIC [id number] 06:17:00 Test Item Value Reference Range Interpretation [...] S NOT APPLICABLE FOR DIALYSIS PATIEN TS. Wildlife Refuge Manager ID - JAQUELINE MCBC W/PLT COUNT & AUTO [id number] 05:08:00 Test Item Value Reference Range Interpretation [...] PERCENT (BEAKER) (test code = 2801) POCT-GLUCOSE [id number] 21:32:00 Test Item Value Reference Range Interpretation Comments POC-GLUCOSE METER 138 mg/dL 70-110 H : TESTED A T [facility] 6720 (BEAKER) (test code = [place], 1538) 58447: Wildlife Refuge Manager/Techni estefani ID = [id number] for HALI GARCIA SARS-COV2/RT-PCR ([facility])2020-01-13 16:42:00 Test Item Value Reference Range Interpretation Comments SARS-COV2/RT-PCR (test Negative Not Detected, Negative, code = 2936587) See external report for linked test SARS-COV-2 PERFORMING LAB [facility] KEELY (test code = 8362632) Negative result for this test determines that [...] the Giles SARS-CoV-2 assay.Fact Sheet for Healthcare Providers:https://www.MeetCute.Easydiagnosis/ari/RT_SAR H-LfH-8_ODU_Hdkv_Owalb_70-383359.pdfFact Sheet for Healthcare Patients:https://www.MeetCute.Easydiagnosis/s al/YO_JTJZ-UmG-8_Vhsyxas_Xqbc_Htubt_WO_45-778640C6.pdfPerforming Laboratory:[facility] [place] [address] POCT-GLUCOSE [id number] 15:53:00 Test Item Value Reference Range Interpretation Comments POC-GLUCOSE METER 177 mg/dL 70-110 H : TESTED A T [facility] 6720 (BEAKER) ([place], [address]: code = 1538) Wildlife Refuge Manager/Techni estefain ID = [id number] for SINDI SANCHEZ IN POCT-GLUCOSE [id number] 11:29:00 Test Item Value Reference Range Interpretation Comments POC-GLUCOSE METER 132 mg/dL 70-110 H : TESTED A T [facility] 6720 (BEAKER) ([place], [address]: code = 1538) Wildlife Refuge Manager/Techni estefani ID = [id number] for SINDI SANCHEZ IN SURGICALLY OBTAINED CULTURE + GRAM [id number] 08:54:00 Test Item Value Reference Range Interpretation Comments CULTURE (BEAKER) A 1+ Same org anism has been (test code = 1095) isolated from cultures(s) of the same bod y site within 3 days. Repeat identification and susceptibility testing performed only after consultation wi the clinical microb iology laboratory.Refe r to previous cultur e ofPseudomonas a eruginosa POCT-GLUCOSE [id number] 07:31:00 Test Item Value Reference Range Interpretation Comments POC-GLUCOSE METER 124 mg/dL 70-110 H : TESTED A T [facility] 6720 ([facility]) ([place] [place], [address]: code = 1538) Wildlife Refuge Manager/Techni estefani ID = [id number] for SINDI SANCHEZ IN POCT-GLUCOSE [id number] 22:46:00 Test Item Value Reference Range Interpretation Comments POC-GLUCOSE METER 185 mg/dL 70-110 H : TESTED A T [facility] 6720 ([facility]) (test code = [facility], 153) 67493: Wildlife Refuge Manager/Techni estefani ID = [id number] for ALLA MONTOYA POCT-GLUCOSE [id number] 16:38:00 Test Item Value Reference Range Interpretation Comments POC-GLUCOSE METER 153 mg/dL 70-110 H : TESTED A T [facility] 6720 ([facility]) (test code = [facility], 153) 81543: Wildlife Refuge Manager/Techni estefani ID = [id number] for TH OMAS, COSHA POCT-GLUCOSE [id number] 12:15:00 Test Item Value Reference Range Interpretation Comments POC-GLUCOSE METER 151 mg/dL 70-110 H : Notified RN/MD: ([facility]) (test code = TESTED AT [facility] 6720 153) [facility], [address]: Wildlife Refuge Manager/Techni estefani ID = [id number] for TH OMAS, COSHA WOUND CULTURE + GRAM [id number] 09:32:00 Test Item Value Reference Range Interpretation Comments CULTURE ([facility]) PSEUDOMONAS A <1+ Pseudom onas (test code [...] No organisms seen (BEAKER) (test code = 281334) POCT-GLUCOSE [id number] 07:11:00 Test Item Value Reference Range Interpretation Comments POC-GLUCOSE METER 121 mg/dL 70-110 H : Notified RN/MD: (BEAKER) (test code = TESTED AT [facility] 4125 1538) [facility], [address]: Wildlife Refuge Manager/Techni estefani ID = [id number] for HADLEY MELISSA BASIC METABOLIC [id number] 05:27:00 Test Item Value Reference Range Interpretation [...] S NOT APPLICABLE FOR DIALYSIS PATIEN TS. Wildlife Refuge Manager ID - EDASICBC W/PLT COUNT & AUTO [id number] 04:50:00 Test Item Value Reference Range Interpretation [...] PERCENT (BEAKER) (test code = 2801) POCT-GLUCOSE [id number] 21:56:00 Test Item Value Reference Range Interpretation Comments POC-GLUCOSE METER 196 mg/dL 70-110 H : TESTED A T [facility] 6720 (BEAKER) (test code = [facility], 1538) 70984: Wildlife Refuge Manager/Techni estefani ID = [id number] for JOSHUA GONZALEZ BLOOD [id number] 17:00:00 Test Item Value Reference Range Interpretation Comments CULTURE (BEAKER) (test No growth in 5 days code = 1095) BLOOD [id number] 17:00:00 Test Item Value Reference Range Interpretation Comments CULTURE (BEAKER) (test No growth in 5 days code = 1095) POCT-GLUCOSE [id number] 15:32:00 Test Item Value Reference Range Interpretation Comments POC-GLUCOSE METER 132 mg/dL 70-110 H : TESTED A T [facility] 6720 (BEAKER) (test code = [facility], 1538) 44006: Wildlife Refuge Manager/Techni estefani ID = [id number] for hannahJuliano SPIN/CONCENTRATION [id number] 14:39:00 Test Item Value Reference Range Interpretation Comments CONCENTRATION CHARGED (BEAKER) (test Done code = 2657) SPIN/CONCENTRATION [id number] 14:39:00 Test Item Value Reference Range Interpretation Comments CONCENTRATION CHARGED (BEAKER) (test Done code = 2657) POCT-GLUCOSE [id number] 13:00:00 Test Item Value Reference Range Interpretation Comments POC-GLUCOSE METER 187 mg/dL 70-110 H : TESTED A T [facility] 6720 (BEAKER) (test code = [facility], 1538) 41653: Wildlife Refuge Manager/Techni estefani ID = [id number] for luhJuliano foote [id number] 11:53:00 Test Item Value Reference Range Interpretation Comments PHOSPHORUS (BEAKER) (test code = 2.9 mg/dL 2.3-4.7 604) Wildlife Refuge Manager ID - ADMINPOCT-GLUCOSE [id number] 09:45:00 Test Item Value Reference Range Interpretation Comments POC-GLUCOSE METER 117 mg/dL 70-110 H : TESTED A T [facility] 6720 (BEAKER) (test code = [facility] [place], 1538) 494[address]: Wildlife Refuge Manager/Techni estefani ID = [id number] for LISA DALLAS BASIC METABOLIC [id number] 05:46:00 Test Item Value Reference Range Interpretation [...] S NOT APPLICABLE FOR DIALYSIS PATIEN TS. Wildlife Refuge Manager ID - ADMINCBC W/PLT COUNT & AUTO [id number] 05:13:00 Test Item Value Reference Range Interpretation [...] PERCENT (BEAKER) (test code = 2801) POCT-GLUCOSE [id number] 22:36:00 Test Item Value Reference Range Interpretation Comments POC-GLUCOSE METER 214 mg/dL 70-110 H : TESTED A T [facility] 6720 (BEAKER) (test code = [facility], 153) 18273: Wildlife Refuge Manager/Techni estefani ID = [id number] for DANK DOWD, ELELL POCT-GLUCOSE [id number] 19:08:00 Test Item Value Reference Range Interpretation Comments POC-GLUCOSE METER 106 mg/dL 70-110 : TESTED A T [facility] 6720 (BEAKER) (test code = [facility], 153) 26206: Wildlife Refuge Manager/Techni estefani ID = [id number] for ROSE GONZALES POCT-GLUCOSE [id number] 12:38:00 Test Item Value Reference Range Interpretation Comments POC-GLUCOSE METER 114 mg/dL 70-110 H : TESTED A T [facility] 6720 (BEAKER) (test code = [facility], 1538) 04623: Wildlife Refuge Manager/Techni estefani ID = [id number] for KHADRA SKELTON POCT-GLUCOSE [id number] 10:42:00 Test Item Value Reference Range Interpretation Comments POC-GLUCOSE METER 121 mg/dL 70-110 H : TESTED A T [facility] 6720 (BEAKER) (test code = [facility], 1538) 01396: Wildlife Refuge Manager/Techni estefani ID = [id number] for KHADRA SKELTON BASIC METABOLIC [id number] 06:21:00 Test Item Value Reference Range Interpretation [...] S NOT APPLICABLE FOR DIALYSIS PATIEN TS. Wildlife Refuge Manager ID - JAQUELINE [id number] 06:18:00 Test Item Value Reference Range Interpretation Comments PHOSPHORUS (BEAKER) (test code = 2.6 mg/dL 2.3-4.7 604) Wildlife Refuge Manager ID - JAQUELINE MCBC W/PLT COUNT & AUTO [id number] 05:50:00 Test Item Value Reference Range Interpretation [...] PERCENT (BEAKER) (test code = 2801) POCT-GLUCOSE [id number] 21:36:00 Test Item Value Reference Range Interpretation Comments POC-GLUCOSE METER 158 mg/dL 70-110 H : TESTED A T [facility] 6720 (BEAKER) (test code [facility], = 1538) 55412: Wildlife Refuge Manager/Techni estefani ID = [id number] for ROMULO MCLEAN POCT-GLUCOSE [id number] 17:12:00 Test Item Value Reference Range Interpretation Comments POC-GLUCOSE METER 212 mg/dL 70-110 H : TESTED A T [facility] 6720 (BEAKER) (test code = [facility], 1538) 17341: Wildlife Refuge Manager/Techni estefani ID = [id number] for OL MOS, SUREKHA POCT-GLUCOSE [id number] 11:24:00 Test Item Value Reference Range Interpretation Comments POC-GLUCOSE METER 159 mg/dL 70-110 H : TESTED A T [facility] 6720 (BEAKER) (test code = [facility], 1538) 30330: Wildlife Refuge Manager/Techni estefani ID = [id number] for OL MOS, SUREKHA POCT-GLUCOSE [id number] 10:21:00 Test Item Value Reference Range Interpretation Comments POC-GLUCOSE METER 111 mg/dL 70-110 H : TESTED A T [facility] 6720 (BEAKER) (test code = [facility], 1538) 53913: Wildlife Refuge Manager/Techni estefani ID = [id number] for RI MARIE ANNMARIE BASIC METABOLIC [id number] 05:04:00 Test Item Value Reference Range Interpretation [...] S NOT APPLICABLE FOR DIALYSIS PATIEN TS. Wildlife Refuge Manager ID - JAQUELINE [id number] 04:57:00 Test Item Value Reference Range Interpretation Comments MAGNESIUM (BEAKER) (test code = 2.0 mg/dL 1.6-2.6 627) Wildlife Refuge Manager ID - JAQUELINE [id number] 04:57:00 Test Item Value Reference Range Interpretation Comments PHOSPHORUS (BEAKER) (test code = 2.5 mg/dL 2.3-4.7 604) Wildlife Refuge Manager ID - JAQUELINE MCBC W/PLT COUNT & AUTO [id number] 04:37:00 Test Item Value Reference Range Interpretation [...] PERCENT (BEAKER) (test code = 2801) POCT-GLUCOSE [id number] 22:46:00 Test Item Value Reference Range Interpretation Comments POC-GLUCOSE METER 163 mg/dL 70-110 H : TESTED A T [facility] 6720 (BEAKER) (test code = [facility], 153) 02575: Wildlife Refuge Manager/Techni estefani ID = [id number] for RE TUYET SALINAS POCT-GLUCOSE [id number] 16:09:00 Test Item Value Reference Range Interpretation Comments POC-GLUCOSE METER 141 mg/dL 70-110 H : TESTED A T [facility] 6720 (BEAKER) (test code = [facility], 1538) 19516: Wildlife Refuge Manager/Techni estefani ID = [id number] for Wi llis, Tabby POCT-GLUCOSE [id number] 11:19:00 Test Item Value Reference Range Interpretation Comments POC-GLUCOSE METER 119 mg/dL 70-110 H : TESTED A T [facility] 6720 (BEAKER) (test code = [facility], 153) 53529: Wildlife Refuge Manager/Techni estefani ID = [id number] for Wi llis, Tabby POCT-GLUCOSE [id number] 08:29:00 Test Item Value Reference Range Interpretation Comments POC-GLUCOSE METER 102 mg/dL 70-110 : [facility] (BEAKER[facility] (test code = [place] [place], 1538) 78[address]: Wildlife Refuge Manager/Techni estefani ID = [id number] for ARCELIA SUAZO [id number] 06:50:00 Test Item Value Reference Range Interpretation Comments FERRITIN (BEAKER) (test code = 623.64 ng/mL 5.00-275.00 H 361) Wildlife Refuge Manager ID - ADMINIRON, TIBC, % SAT. (WITHOUT FERRITIN)2020-01-08 06:28:00 Test Item Value Reference Range Interpretation Comments IRON (BEAKER) (test code = 547) 17.0 ug/dL 40.0-160.0 L TOTAL IRON BINDING CAPACITY 128 ug/dL 250-450 L (BEAKER) (test code = 769) IRON % SATURATION (2) (BEAKER) 13 % 20-55 L (test code = 2590) Wildlife Refuge Manager ID - ADMINVANCOMYCIN LEVEL, [id number] 06:26:00 Test Item Value Reference Range Interpretation Comments VANCOMYCIN RANDOM (BEAKER) (test 20.4 ug/mL code = 523) Reference Range: No NormalsOperator ID - ADMINBASIC METABOLIC [id number] 02:21:00 Test Item Value Reference Range Interpretation [...] S NOT APPLICABLE FOR DIALYSIS PATIEN TS. Wildlife Refuge Manager ID - [id number] 02:09:00 Test Item Value Reference Range Interpretation Comments MAGNESIUM (BEAKER) (test code = 1.8 mg/dL 1.6-2.6 627) Wildlife Refuge Manager ID - [id number] 02:09:00 Test Item Value Reference Range Interpretation Comments PHOSPHORUS (BEAKER) (test code = 2.4 mg/dL 2.3-4.7 604) Wildlife Refuge Manager ID - [id number] 02:06:00 Test Item Value Reference Range Interpretation Comments PARTIAL THROMBOPLASTIN TIME 46.2 seconds 22.5-36.0 H (BEAKER) (test code = 760) PROTHROMBIN [id number] 02:05:00 Test Item Value Reference Range Interpretation [...] mechanical heart valves.CBC W/PLT COUNT & AUTO [id number] 02:03:00 Test Item Value Reference Range Interpretation [...] PERCENT (BEAKER) (test code = 2801) POCT-GLUCOSE [id number] 00:26:00 Test Item Value Reference Range Interpretation Comments POC-GLUCOSE METER 118 mg/dL 70-110 H : TESTED A T [facility] 6720 (BEAKER) (test code = D[facility]IA ORR, 1538) 77645: Wildlife Refuge Manager/Techni estefani ID = [id number] for Laura Fisher POCT-GLUCOSE [id number] 16:33:00 Test Item Value Reference Range Interpretation Comments POC-GLUCOSE METER 154 mg/dL 70-110 H : TESTED A T [facility] 6720 (BEAKER) (test code = D[place], 1538) 9[address]: Wildlife Refuge Manager/Techni estefani ID = [id number] for RADHA SHELTON POCT-GLUCOSE [id number] 13:11:00 Test Item Value Reference Range Interpretation Comments POC-GLUCOSE METER 169 mg/dL 70-110 H : TESTED A T [facility] 6720 (BEAKER) (test code = D[facility], 1538) 92127: Wildlife Refuge Manager/Techni estefani ID = [id number] for Celi Jesus CBC W/PLT COUNT & AUTO [id number] 10:36:00 Test Item Value Reference Range Interpretation [...] PERCENT (BEAKER) (test code = 2801) POCT-GLUCOSE [id number] 07:59:00 Test Item Value Reference Range Interpretation Comments POC-GLUCOSE METER 107 mg/dL 70-110 : TESTED A T [facility] 6720 (BEAKER) (test code = DASIA Garcia [facility], 1538) 97657: Wildlife Refuge Manager/Techni estefani ID = [id number] for RADHA SHELTON BASIC METABOLIC [id number] 07:01:00 Test Item Value Reference Range Interpretation [...] S NOT APPLICABLE FOR DIALYSIS PATIEN TS. Wildlife Refuge Manager ID - ANTONY [id number] 07:00:00 Test Item Value Reference Range Interpretation Comments MAGNESIUM (BEAKER) (test code = 1.9 mg/dL 1.6-2.6 627) Wildlife Refuge Manager ID - ANTONY [id number] 07:00:00 Test Item Value Reference Range Interpretation Comments PHOSPHORUS (BEAKER) (test code = 4.4 mg/dL 2.3-4.7 604) Wildlife Refuge Manager ID - ANTONY FVANCOMYCIN LEVEL, [id number] 06:30:00 Test Item Value Reference Range Interpretation Comments VANCOMYCIN RANDOM (BEAKER) (test 16.1 ug/mL code = 523) Reference Range: No NormalsOperator ID - EDASICBC W/PLT COUNT & AUTO [id number] 05:53:00 Test Item Value Reference Range Interpretation [...] PERCENT (BEAKER) (test code = 2801) POCT-GLUCOSE [id number] 23:03:00 Test Item Value Reference Range Interpretation Comments POC-GLUCOSE METER 144 mg/dL 70-110 H : TESTED A T [facility] 6720 (BEAKER) (test code = CHRISTOSDELPHINE Garcia [facility], 1538) 81066: Wildlife Refuge Manager/Techni estefani ID = [id number] for Pamela Ortiz SARS-COV2/RT-PCR ([facility])2020-01-06 21:26:00 Test Item Value Reference Range Interpretation Comments SARS-COV2/RT-PCR (test code Negative Not Detected, Negative, = 3177396) See external report for linked test SARS-COV-2 [facility] ([facility] code = 9520098) Negative results do not preclude SARS-CoV-2 infection [...] of the Act.Fact Sheet for Healthcare Pro viders:https://www.PacketFront/Documents/Xpert%20Xpress%20SARS%20CoV-2/Fact%20Sh eets/302-3802%03AVIX-MVU-4%20HEALTHCARE%20PROVIDERS%20FACT%20SHEET.pdfFact Sheet for Healthcare Patients:https://www.IceRocket/Documents/Xpert%20Xpress%20SARS%20CoV-2/Fact%20Sheets/302-3801%20SARS-COV -2%20PATIENT%20FACT%20SHEET.pdfPerforming Laboratory:[facility] [place] [address].[place], [place] [address]BIYVIF ACID, [id number] 20:26:00 Test Item Value Reference Range Interpretation Comments LACTATE BLOOD VENOUS (2) (BEAKER) 0.61 mmol/L 0.50-2.20 (test code = 2872) Wildlife Refuge Manager ID - DBRAPID INFLUENZA A&B [id number] 20:15:00 Test Item Value Reference Range Interpretation Comments RAPID INFLUENZA A AG (BEAKER) Negative Negative, Inconclusive (test code = 1622) RAPID INFLUENZA B AG (BEAKER) Negative Negative, Inconclusive (test code = 1623) RAD, CHEST, 1 VIEW, NON [id number] 17:48:00Reason for exam:->FEVERReason for exam:->EMESISReason for exam:->WOUND CHECKShould this be performed at the bedside?->Yes [facility] : 1960 Sex: [...] AND BONES: Unremarkable. IMPRESSION:Cardiomegaly with pulmonary edema. Nosignificant pleural effusion.. TECHNIQUE: RAD, FOOT, MIN 3 [...] MDReport Verified Date/Time: 01/06/2020 17:48:53 Reading Location: [facility] C013Y CT Body Reading Room RAD, FOOT, MIN 3 VIEWS, RIGHT 2020-01-06 17:48:00Reason for exam:->FEVERReason for exam:->EMESISReason for exam:->WOUND CHECK [facility] DAYTON GRIJALVA : 1960 Sex: MFINAL REPORTPATIENT ID: [id number] TECHNIQUE: Frontal view of the chest. INDICATION: [...] MDReport Verified Date/Time: 01/06/2020 17:48:53 Reading Location: [facility] B1 C013Y CT Body Reading Room [...] CONCENTRATION Adequate (CELLAVISION)(BEAKER) (test code = 3438) Wildlife Refuge Manager ID - ruth ann Amin comments: Slide comments:[id number] 17:24:00 Test Item Value Reference Range Interpretation Comments PARTIAL THROMBOPLASTIN TIME 37.5 seconds 22.5-36.0 H (BEAKER) (test code = 760) POCT-GLUCOSE [id number] 17:23:00 Test Item Value Reference Range Interpretation Comments POC-GLUCOSE METER 145 mg/dL 70-110 H : Notified RN/MD: (BEAKER) (test code = TESTED AT [facility] 6720 1538) [place], [address]: Wildlife Refuge Manager/Techni estefani ID = [id number] for ROMAIN REEVES PROTHROMBIN TIME/[id number] 17:23:00 Test Item Value Reference Range Interpretation [...] for patients wiht mechanical heart valves.HEPATIC FUNCTION [id number] 17:01:00 Test Item Value Reference Range Interpretation [...] (test code = 8 U/L 6-55 347) Wildlife Refuge Manager ID - EDASIBASIC METABOLIC [id number] 17:01:00 Test Item Value Reference Range Interpretation [...] S NOT APPLICABLE FOR DIALYSIS PATIEN TS. Wildlife Refuge Manager ID - EDASILACTIC ACID, [id number] 17:01:00 Test Item Value Reference Range Interpretation Comments LACTATE BLOOD VENOUS (2) (BEAKER) 1.36 mmol/L 0.50-2.20 (test code = 2872) Wildlife Refuge Manager ID - EDASICBC W/PLT COUNT & AUTO [id number] 16:55:00 Test Item Value Reference Range Interpretation [...] (BEAKER) (test code = 2801) BLOOD GAS, [id number] 16:47:00 Test Item Value Reference Range Interpretation [...] code = 1819) 21.0 FUNGUS CULTURE + [id number] 17:16:00 Test Item Value Reference Range Interpretation [...] bacilli (test code = 994) seen POCT-GLUCOSE [id number] 11:45:00 Test Item Value Reference Range Interpretation Comments POC-GLUCOSE METER 126 mg/dL 70-110 H : TESTED A T [facility] 6720 (BEAKER) (test code [facility], = 1538) 16868: Wildlife Refuge Manager/Techni estefani ID = [id number] for WILS ONJORGESTANIE POCT-GLUCOSE [id number] 07:39:00 Test Item Value Reference Range Interpretation Comments POC-GLUCOSE METER 94 mg/dL 70-110 : TESTED A T [facility] 6720 (BEAKER) (test code = DASIA Garcia [facility], 1538) 7[address]: Wildlife Refuge Manager/Techni estefani ID = [id number] for WILS ON, JORGESTANIE CBC W/PLT COUNT & AUTO [id number] 05:28:00 Test Item Value Reference Range Interpretation [...] (BEAKER) (test code = 2801) BASIC METABOLIC [id number] 05:25:00 Test Item Value Reference Range Interpretation [...] S NOT APPLICABLE FOR DIALYSIS PATIEN TS. Wildlife Refuge Manager ID - [id number] 05:03:00 Test Item Value Reference Range Interpretation Comments MAGNESIUM (BEAKER) (test code = 2.0 mg/dL 1.6-2.6 627) Wildlife Refuge Manager ID - DBPOCT-GLUCOSE [id number] 21:31:00 Test Item Value Reference Range Interpretation Comments POC-GLUCOSE METER 138 mg/dL 70-110 H : TESTED A T [facility] 6720 (BEAKER) (test code = [facility], 1538) 52580: Wildlife Refuge Manager/Techni estefani ID = [id number] for MURRELLPHIL TTE POCT-GLUCOSE [id number] 16:39:00 Test Item Value Reference Range Interpretation Comments POC-GLUCOSE METER 119 mg/dL 70-110 H : TESTED A T [facility] 6720 (BEAKER) (test code = [facility], 1538) 19897: Wildlife Refuge Manager/Techni estefani ID = [id number] for QU ARTMAN, NEETA POCT-GLUCOSE [id number] 11:42:00 Test Item Value Reference Range Interpretation Comments POC-GLUCOSE METER 133 mg/dL 70-110 H : TESTED A T [facility] 6720 (BEAKER) (test code = [facility], 1538) 77815: Wildlife Refuge Manager/Techni estefani ID = [id number] for QU ARTMAN, NEETA POCT-GLUCOSE [id number] 07:52:00 Test Item Value Reference Range Interpretation Comments POC-GLUCOSE METER 80 mg/dL 70-110 : TESTED A T [facility] 6720 (BEAKER) (test code = [facility], 1538) 74434: Wildlife Refuge Manager/Techni estefani ID = [id number] for QUAR TMAN, NEETA HEPATITIS B SURFACE [id number] 07:04:00 Test Item Value Reference Range Interpretation Comments HEPATITIS B SURFACE ANTIGEN (2) Nonreactive Nonreactive (BEAKER) (test code = 2585) Specimen is considered negative for HBsAg.BASIC METABOLIC [id number] 06:35:00 Test Item Value Reference Range Interpretation [...] S NOT APPLICABLE FOR DIALYSIS PATIEN TS. Wildlife Refuge Manager ID - [id number] 06:26:00 Test Item Value Reference Range Interpretation Comments MAGNESIUM (BEAKER) (test code = 2.1 mg/dL 1.6-2.6 627) Wildlife Refuge Manager ID - [id number] W/PLT COUNT & AUTO [id number] 06:10:00 Test Item Value Reference Range Interpretation [...] PERCENT (BEAKER) (test code = 2801) POCT-GLUCOSE [id number] 20:59:00 Test Item Value Reference Range Interpretation Comments POC-GLUCOSE METER 164 mg/dL 70-110 H : TESTED A T [facility] 6720 (BEAKER) (test code = [facility], 1538) 75045: Wildlife Refuge Manager/Techni estefani ID = [id number] for PHIL MURRELL POCT-GLUCOSE [id number] 17:56:00 Test Item Value Reference Range Interpretation Comments POC-GLUCOSE METER 121 mg/dL 70-110 H : TESTED A T [facility] 6720 (BEAKER) (test code = [facility], 153) 95929: Wildlife Refuge Manager/Techni estefani ID = [id number] for NEETA ROLLINS POCT-GLUCOSE [id number] 14:21:00 Test Item Value Reference Range Interpretation Comments POC-GLUCOSE METER 152 mg/dL 70-110 H : TESTED A T [facility] 6720 (BEAKER) (test code = [facility], 1538) 49120: Wildlife Refuge Manager/Techni estefani ID = [id number] for KALLI BOOGIE POCT-GLUCOSE [id number] 12:50:00 Test Item Value Reference Range Interpretation Comments POC-GLUCOSE METER 134 mg/dL 70-110 H : TESTED A T [facility] 6720 (BEAKER) (test code = [facility], 1538) 04162: Wildlife Refuge Manager/Techni estefani ID = [id number] for NEETA ROLLINS POCT-GLUCOSE [id number] 08:03:00 Test Item Value Reference Range Interpretation Comments POC-GLUCOSE METER 104 mg/dL 70-110 : TESTED A T [facility] 6720 (BEAKER) (test code = [facility], 1538) 84982: Wildlife Refuge Manager/Techni estefani ID = [id number] for NEETA ROLLINS BASIC METABOLIC [id number] 07:07:00 Test Item Value Reference Range Interpretation [...] S NOT APPLICABLE FOR DIALYSIS PATIEN TS. Wildlife Refuge Manager ID - [id number] 07:00:00 Test Item Value Reference Range Interpretation Comments MAGNESIUM (BEAKER) (test code = 1.9 mg/dL 1.6-2.6 627) Wildlife Refuge Manager ID - EDASICBC W/PLT COUNT & AUTO [id number] 06:15:00 Test Item Value Reference Range Interpretation [...] PERCENT (BEAKER) (test code = 2801) POCT-GLUCOSE [id number] 22:35:00 Test Item Value Reference Range Interpretation Comments POC-GLUCOSE METER 152 mg/dL 70-110 H : TESTED A T [facility] 6720 (BEAKER) (test code = [facility], 1538) 91900: Wildlife Refuge Manager/Techni estefani ID = [id number] for SUMAN FAM POCT-GLUCOSE [id number] 15:46:00 Test Item Value Reference Range Interpretation Comments POC-GLUCOSE METER 93 mg/dL 70-110 : TESTED A T [facility] 6720 (BEAKER) (test code = [facility], 1538) 41296: Wildlife Refuge Manager/Techni estefani ID = [id number] for Avery Mendoza POCT-GLUCOSE [id number] 08:50:00 Test Item Value Reference Range Interpretation Comments POC-GLUCOSE METER 143 mg/dL 70-110 H : TESTED A T [facility] 6720 (BEAKER) (test code = [facility], 1538) 86616: Wildlife Refuge Manager/Techni estefani ID = [id number] for IAIN EASTON BASIC METABOLIC [id number] 06:41:00 Test Item Value Reference Range Interpretation [...] S NOT APPLICABLE FOR DIALYSIS PATIEN TS. Wildlife Refuge Manager ID - [id number] 06:40:00 Test Item Value Reference Range Interpretation Comments MAGNESIUM (BEAKER) (test code = 2.0 mg/dL 1.6-2.6 627) Wildlife Refuge Manager ID - EDASICBC W/PLT COUNT & AUTO [id number] 05:58:00 Test Item Value Reference Range Interpretation [...] PERCENT (BEAKER) (test code = 2801) SARS-COV2/RT-PCR ([facility])2019-12-21 00:21:00 Test Item Value Reference Range Interpretation Comments SARS-COV2/RT-PCR (test Negative Not Detected, Negative, code = 1201924) See external report for linked test SARS-COV-2 PERFORMING LAB [facility] (test code = 2777045) Negative result for this test determines that [...] of the Act.Fact Sheet for Healthcare Prov iders:https://www.[employer]/sites/default/files/product/documents/Fact_Sheet_HC _Fcgmmlczo_Avjc_GUMU-RdR-7.pdfFact Sheet for Healthcare Patients:https://www.[employer]/sites/default/files/product/docume nts/Dgvq_Mdsdm_Aillwyhw_Bykt_SOIT-OrT-4.pdfPerforming Laboratory:[address] [facility].[place], [place] [address]UALU-QODRBHS METER 2019-12-20 20:53:00 Test Item Value Reference Range Interpretation Comments POC-GLUCOSE METER 180 mg/dL 70-110 H : Notified RN/MD: ([facility]) (test code = TESTED AT [place] [id number] 1538) [facility], [address]: Wildlife Refuge Manager/Techni estefani ID = [id number] for ELMIRA LOPEZ POCT-GLUCOSE [id number] 16:41:00 Test Item Value Reference Range Interpretation Comments POC-GLUCOSE METER 167 mg/dL 70-110 H : [facility] (test code [facility], = 1538) 80971: Wildlife Refuge Manager/Techni estefani ID = [id number] for WILS ON, SHASTANIE POCT-GLUCOSE [id number] 12:02:00 Test Item Value Reference Range Interpretation Comments POC-GLUCOSE METER 158 mg/dL 70-110 H : TESTED A T [facility] 6720 (BEAKER) (test code [facility], = 1538) 20550: Wildlife Refuge Manager/Techni estefani ID = [id number] for WILS ON, SHASTANIE POCT-GLUCOSE [id number] 07:49:00 Test Item Value Reference Range Interpretation Comments POC-GLUCOSE METER 116 mg/dL 70-110 H : TESTED A T [facility] 6720 (BEAKER) (test code [facility], = 1538) 04632: Wildlife Refuge Manager/Techni estefani ID = [id number] for WILS ON, SHASTANIE BASIC METABOLIC [id number] 06:52:00 Test Item Value Reference Range Interpretation [...] S NOT APPLICABLE FOR DIALYSIS PATIEN TS. Wildlife Refuge Manager ID - JAQUELINE [id number] 06:40:00 Test Item Value Reference Range Interpretation Comments MAGNESIUM (BEAKER) (test code = 1.9 mg/dL 1.6-2.6 627) Wildlife Refuge Manager ID - JAQUELINE MCBC W/PLT COUNT & AUTO [id number] 05:53:00 Test Item Value Reference Range Interpretation [...] PERCENT (BEAKER) (test code = 2801) POCT-GLUCOSE [id number] 20:47:00 Test Item Value Reference Range Interpretation Comments POC-GLUCOSE METER 221 mg/dL 70-110 H : Notified RN/MD: ([facility]) (test code = TESTED AT [facility] 6733 5241) [facility], [address]: Wildlife Refuge Manager/Techni estefani ID = [id number] for ELMIRA LOPEZ ANAEROBIC [id number] 20:08:00 Test Item Value Reference Range Interpretation Comments CULTURE ([facility]) (test No anaerobes isolated code = 1095) POCT-GLUCOSE [id number] 16:36:00 Test Item Value Reference Range Interpretation Comments POC-GLUCOSE METER 190 mg/dL 70-110 H : TESTED A T [facility] 6720 (BEAKER) (test code [facility], = 1538) 85774: Wildlife Refuge Manager/Techni estefani ID = [id number] for CONCETTAS ONJOSELIN POCT-GLUCOSE [id number] 09:20:00 Test Item Value Reference Range Interpretation Comments POC-GLUCOSE METER 106 mg/dL 70-110 : TESTED A T [facility] 6720 (BEAKER) (test code [facility], = 1538) 28589: Wildlife Refuge Manager/Techni estefani ID = [id number] for CONCETTAS ONJOSELIN BASIC METABOLIC [id number] 05:49:00 Test Item Value Reference Range Interpretation [...] S NOT APPLICABLE FOR DIALYSIS PATIEN TS. Wildlife Refuge Manager ID - JAQUELINE [id number] 05:48:00 Test Item Value Reference Range Interpretation Comments MAGNESIUM (BEAKER) (test code = 2.1 mg/dL 1.6-2.6 627) Wildlife Refuge Manager ID - JAQUELINE MCBC W/PLT COUNT & AUTO [id number] 05:44:00 Test Item Value Reference Range Interpretation [...] PERCENT (BEAKER) (test code = 2801) POCT-GLUCOSE [id number] 20:14:00 Test Item Value Reference Range Interpretation Comments POC-GLUCOSE METER 181 mg/dL 70-110 H : TESTED A T [facility] 6720 (BEAKER) (test code = DASIA [place], 1538) 23573: Wildlife Refuge Manager/Techni estefani ID = [id number] for NELLI SHOOK POCT-GLUCOSE [id number] 18:20:00 Test Item Value Reference Range Interpretation Comments POC-GLUCOSE METER 148 mg/dL 70-110 H : TESTED A T [facility] 6720 (BEAKER) (test code = DASIA Garcia [facility], 1538) 61490: Wildlife Refuge Manager/Techni estefani ID = [id number] for GR AHAM, KAREN BASIC METABOLIC [id number] 06:50:00 Test Item Value Reference Range Interpretation [...] S NOT APPLICABLE FOR DIALYSIS PATIEN TS. Wildlife Refuge Manager ID - [id number] 06:49:00 Test Item Value Reference Range Interpretation Comments MAGNESIUM (BEAKER) (test code = 2.0 mg/dL 1.6-2.6 627) Wildlife Refuge Manager ID - EDASICBC W/PLT COUNT & AUTO [id number] 05:57:00 Test Item Value Reference Range Interpretation [...] PERCENT (BEAKER) (test code = 2801) POCT-GLUCOSE [id number] 20:12:00 Test Item Value Reference Range Interpretation Comments POC-GLUCOSE METER 217 mg/dL 70-110 H : TESTED A T [facility] 6720 (BEAKER) (test code = D[facility] [place], 1538) 783[address]: Wildlife Refuge Manager/Techni estefani ID = [id number] for NELLI SHOOK POCT-GLUCOSE [id number] 14:00:00 Test Item Value Reference Range Interpretation Comments POC-GLUCOSE METER 97 mg/dL 70-110 : TESTED A T [facility] 6720 (BEAKER) (test code = DASAI [place], 1538) 36062: Wildlife Refuge Manager/Techni estefani ID = [id number] for JOSELIN ESCALONA BASIC METABOLIC [id number] 05:12:00 Test Item Value Reference Range Interpretation [...] S NOT APPLICABLE FOR DIALYSIS PATIEN TS. Wildlife Refuge Manager ID - JAQUELINE [id number] 05:09:00 Test Item Value Reference Range Interpretation Comments MAGNESIUM (BEAKER) (test code = 2.1 mg/dL 1.6-2.6 627) Wildlife Refuge Manager ID - JAQUELINE MCBC W/PLT COUNT & AUTO [id number] 04:38:00 Test Item Value Reference Range Interpretation [...] PERCENT (BEAKER) (test code = 2801) POCT-GLUCOSE [id number] 21:09:00 Test Item Value Reference Range Interpretation Comments POC-GLUCOSE METER 156 mg/dL 70-110 H : TESTED A T [facility] 6720 (BEAKER) (test code = DASIA Garcia [facility], 1538) 34995: Wildlife Refuge Manager/Techni estefani ID = [id number] for ROSIO DUFF POCT-GLUCOSE [id number] 16:53:00 Test Item Value Reference Range Interpretation Comments POC-GLUCOSE METER 135 mg/dL 70-110 H : TESTED A T [facility] 6720 (BEAKER) (test code [facility], = 1538) 13339: Wildlife Refuge Manager/Techni estefani ID = [id number] for WILS ON, SURIANIE POCT-GLUCOSE [id number] 11:36:00 Test Item Value Reference Range Interpretation Comments POC-GLUCOSE METER 115 mg/dL 70-110 H : TESTED A T [facility] 6720 (BEAKER) (test code [facility], = 1538) 11869: Wildlife Refuge Manager/Techni estefani ID = [id number] for WILS ON, JORGESTANIE SURGICALLY OBTAINED CULTURE + GRAM [id number] 08:39:00 Test Item Value Reference Range Interpretation [...] gram negative (BEAKER) (test code = rods 185737) POCT-GLUCOSE [id number] 07:57:00 Test Item Value Reference Range Interpretation Comments POC-GLUCOSE METER 75 mg/dL 70-110 : [facility] ([facility]ER[facility] (test code = DASIA Garcia [facility], 1538) 19123: Wildlife Refuge Manager/Techni estefani ID = [id number] for JOSELIN ESCALONA CBC W/PLT COUNT & AUTO [id number] 06:19:00 Test Item Value Reference Range Interpretation [...] (BEAKER) (test code = 2801) BASIC METABOLIC [id number] 06:14:00 Test Item Value Reference Range Interpretation [...] S NOT APPLICABLE FOR DIALYSIS PATIEN TS. Wildlife Refuge Manager ID - DANITZA [id number] 06:13:00 Test Item Value Reference Range Interpretation Comments MAGNESIUM (BEAKER) (test code = 2.1 mg/dL 1.6-2.6 627) Wildlife Refuge Manager ID - DANITZA LPOCT-GLUCOSE [id number] 20:21:00 Test Item Value Reference Range Interpretation Comments POC-GLUCOSE METER 188 mg/dL 70-110 H : TESTED A T [facility] 6720 (BEAKER) (test code = [facility], 153) 41459: Wildlife Refuge Manager/Techni estefani ID = [id number] for Ch andran, Nikki POCT-GLUCOSE [id number] 16:41:00 Test Item Value Reference Range Interpretation Comments POC-GLUCOSE METER 110 mg/dL 70-110 : TESTED A T [facility] 6720 (BEAKER) (test code [facility], = 1538) 70725: Wildlife Refuge Manager/Techni estefani ID = [id number] for WILS ON, SHASTANIE POCT-GLUCOSE [id number] 12:03:00 Test Item Value Reference Range Interpretation Comments POC-GLUCOSE METER 82 mg/dL 70-110 : TESTED A T [facility] 6720 (BEAKER) (test code = [facility], 153) 74455: Wildlife Refuge Manager/Techni estefani ID = [id number] for WILS ON, SHASTANIE POCT-GLUCOSE [id number] 07:12:00 Test Item Value Reference Range Interpretation Comments POC-GLUCOSE METER 86 mg/dL 70-110 : TESTED A T [facility] 6720 (BEAKER) (test code = [place], 1538) 49228: Wildlife Refuge Manager/Techni estefani ID = [id number] for JOSELIN ESCALONA BASIC METABOLIC [id number] 05:40:00 Test Item Value Reference Range Interpretation [...] S NOT APPLICABLE FOR DIALYSIS PATIEN TS. [id number] 05:38:00 Test Item Value Reference Range Interpretation Comments MAGNESIUM (BEAKER) (test code = 2.0 mg/dL 1.6-2.6 627) CBC W/PLT COUNT & AUTO [id number] 05:07:00 Test Item Value Reference Range Interpretation [...] PERCENT (BEAKER) (test code = 2801) POCT-GLUCOSE [id number] 20:33:00 Test Item Value Reference Range Interpretation Comments POC-GLUCOSE METER 218 mg/dL 70-110 H : TESTED A T [facility] 6720 (BEAKER) (test code = [place], 1538) 11388: Wildlife Refuge Manager/Techni estefani ID = [id number] for PHIL MURRELL POCT-GLUCOSE [id number] 17:47:00 Test Item Value Reference Range Interpretation Comments POC-GLUCOSE METER 122 mg/dL 70-110 H : TESTED A T [facility] 6720 (BEAKER) (test code [facility], = 1538) 27777: Wildlife Refuge Manager/Techni estefani ID = [id number] for WILS ON, JORGESTGUSE POCT-GLUCOSE [id number] 11:53:00 Test Item Value Reference Range Interpretation Comments POC-GLUCOSE METER 93 mg/dL 70-110 : TESTED A T [facility] 6720 (BEAKER) (test code = [facility], 1538) 55960: Wildlife Refuge Manager/Techni estefani ID = [id number] for WILS ON, JORGESTANIE POCT-GLUCOSE [id number] 08:26:00 Test Item Value Reference Range Interpretation Comments POC-GLUCOSE METER 93 mg/dL 70-110 : TESTED A T [facility] 6720 (BEAKER) (test code = [facility], 1538) 10193: Wildlife Refuge Manager/Techni estefani ID = [id number] for WILS ON, JORGESTANIE BASIC METABOLIC [id number] 04:43:00 Test Item Value Reference Range Interpretation [...] S NOT APPLICABLE FOR DIALYSIS PATIEN TS. Wildlife Refuge Manager ID - [id number] 04:33:00 Test Item Value Reference Range Interpretation Comments MAGNESIUM (BEAKER) (test code = 2.1 mg/dL 1.6-2.6 627) Wildlife Refuge Manager ID - EDASICBC W/PLT COUNT & AUTO [id number] 04:11:00 Test Item Value Reference Range Interpretation [...] PERCENT (BEAKER) (test code = 2801) POCT-GLUCOSE [id number] 21:01:00 Test Item Value Reference Range Interpretation Comments POC-GLUCOSE METER 159 mg/dL 70-110 H : TESTED A T [facility] 6720 (BEAKER) (test code = [facility], 1538) 31549: Wildlife Refuge Manager/Techni estefani ID = [id number] for Alexia Vivas POCT-GLUCOSE [id number] 17:01:00 Test Item Value Reference Range Interpretation Comments POC-GLUCOSE METER 149 mg/dL 70-110 H : TESTED A T [facility] 6720 (BEAKER) (test code = [facility], 1538) 20355: Wildlife Refuge Manager/Techni estefani ID = [id number] for IAIN EASTON POCT-GLUCOSE [id number] 12:36:00 Test Item Value Reference Range Interpretation Comments POC-GLUCOSE METER 127 mg/dL 70-110 H : TESTED A T [facility] 6720 (BEAKER) (test code = [facility], 1538) 27202: Wildlife Refuge Manager/Techni estefani ID = [id number] for ANGEL HILLS POCT-GLUCOSE [id number] 08:18:00 Test Item Value Reference Range Interpretation Comments POC-GLUCOSE METER 75 mg/dL 70-110 : TESTED A T [facility] 6720 (BEAKER) (test code = [facility], 1538) 44609: Wildlife Refuge Manager/Techni estefani ID = [id number] for IAIN DEXTER HEMOGLOBIN [id number] 08:08:00 Test Item Value Reference Range Interpretation Comments HEMOGLOBIN A1C (BEAKER) (test code = 5.9 % 4.3-6.1 368) BASIC METABOLIC [id number] 06:38:00 Test Item Value Reference Range Interpretation [...] S NOT APPLICABLE FOR DIALYSIS PATIEN TS. Wildlife Refuge Manager ID - JAQUELINE [id number] 06:32:00 Test Item Value Reference Range Interpretation Comments MAGNESIUM (BEAKER) (test code = 2.0 mg/dL 1.6-2.6 627) Wildlife Refuge Manager ID - JAQUELINE MCBC W/PLT COUNT & AUTO [id number] 06:04:00 Test Item Value Reference Range Interpretation [...] PERCENT (BEAKER) (test code = 2801) SARS-COV2/RT-PCR ([facility])2019-12-13 05:48:00 Test Item Value Reference Range Interpretation Comments SARS-COV2/RT-PCR (test Negative Not Detected, Negative, code = 0875244) See external report for linked test SARS-COV-2 PERFORMING LAB [facility] (test code = 6029918) Negative result for this test determines that [...] of the Act.Fact Sheet for Healthcare Prov iders:https://www.[employer]/sites/default/files/product/documents/Fact_Sheet_HC _Szjarkrie_Xmxz_TYNA-PoF-0.pdfFact Sheet for Healthcare Patients:https://www.[employer]/sites/default/files/product/docume nts/Xqzh_Xrewv_Atboyhqz_Tqdy_NXQO-UeG-2.pdfPerforming Laboratory:[facility], [place] [address]IRMB-NZBLCDT METER 2019-12-12 20:52:00 Test Item Value Reference Range Interpretation Comments POC-GLUCOSE METER 123 mg/dL 70-110 H : TESTED A T [facility] 6720 (BEAKER) (test code = [facility], 1537) 96715: Wildlife Refuge Manager/Techni estefani ID = [id number] for Alexia Vivas POCT-GLUCOSE [id number] 16:14:00 Test Item Value Reference Range Interpretation Comments POC-GLUCOSE METER 175 mg/dL 70-110 H : TESTED A T [facility] 6720 (BEAKER) (test code = [facility], 153) 97585: Wildlife Refuge Manager/Techni estefani ID = [id number] for IAIN EASTON POCT-GLUCOSE [id number] 13:41:00 Test Item Value Reference Range Interpretation Comments POC-GLUCOSE METER 145 mg/dL 70-110 H : TESTED A T [facility] 6720 (BEAKER) (test code = [facility], 1538) 73586: Wildlife Refuge Manager/Techni estefani ID = [id number] for BLADIMIR MELISSA VANCOMYCIN LEVEL, [id number] 05:00:00 Test Item Value Reference Range Interpretation Comments VANCOMYCIN RANDOM (BEAKER) (test 17.3 ug/mL code = 523) Reference Range: No NormalsOperator ID - JAQUELINE MSPIN/CONCENTRATION CHARGE 2019-12-12 04:16:00 Test Item Value Reference Range Interpretation Comments CONCENTRATION CHARGED (BEAKER) (test Done code = 2657) POCT-GLUCOSE [id number] 20:36:00 Test Item Value Reference Range Interpretation Comments POC-GLUCOSE METER 80 mg/dL 70-110 : TESTED A T [facility] 6720 (BEAKER) (test code = [facility], 153) 17699: Wildlife Refuge Manager/Techni estefani ID = [id number] for ELIZABETH DUENAS POCT-GLUCOSE [id number] 16:43:00 Test Item Value Reference Range Interpretation Comments POC-GLUCOSE METER 88 mg/dL 70-110 : TESTED A T [facility] 6720 (BEAKER) (test code = [facility], 153) 12938: Wildlife Refuge Manager/Techni estefani ID = [id number] for ENRIQUE KNOXE POCT-GLUCOSE [id number] 14:06:00 Test Item Value Reference Range Interpretation Comments POC-GLUCOSE METER 78 mg/dL 70-110 : TESTED A T [facility] 6720 (BEAKER) (test code = [facility], 153) 43908: Wildlife Refuge Manager/Techni estefani ID = [id number] for HURST-IVELISSE BEENNE POCT-GLUCOSE [id number] 11:19:00 Test Item Value Reference Range Interpretation Comments POC-GLUCOSE METER 93 mg/dL 70-110 : TESTED A T [facility] 6720 (BEAKER) (test code = [facility], 153) 49406: Wildlife Refuge Manager/Techni estefani ID = [id number] for ROSE CHAVEZ BASIC METABOLIC [id number] 04:38:00 Test Item Value Reference Range Interpretation [...] S NOT APPLICABLE FOR DIALYSIS PATIEN TS. Wildlife Refuge Manager ID - EDASICBC W/PLT COUNT & AUTO [id number] 04:14:00 Test Item Value Reference Range Interpretation [...] PERCENT (BEAKER) (test code = 2801) BLOOD [id number] 02:00:00 Test Item Value Reference Range Interpretation Comments [facility] (test No growth in 5 days code = 1095) POCT-GLUCOSE [id number] 20:48:00 Test Item Value Reference Range Interpretation Comments POC-GLUCOSE METER 192 mg/dL 70-110 H : Notified RN/MD: ([facility]) (test code = TESTED AT [place] [address] 1537) [facility], [address]: Wildlife Refuge Manager/Techni estefani ID = [id number] for ELMIRA LOPEZ POCT-GLUCOSE [id number] 17:27:00 Test Item Value Reference Range Interpretation Comments POC-GLUCOSE METER 96 mg/dL 70-110 : TESTED A T [facility] 6720 ([facility]) (test code = [facility], 153) 90039: Wildlife Refuge Manager/Techni estefani ID = [id number] for SUDARSHAN GUZMAN JOSELIN POCT-GLUCOSE [id number] 16:31:00 Test Item Value Reference Range Interpretation Comments POC-GLUCOSE METER 91 mg/dL 70-110 : TESTED A T [facility] 6720 ([facility]) (test code = [facility], 1538) 85194: Wildlife Refuge Manager/Techni estefani ID = [id number] for JUAN ZEVONNE VIAL POCT-GLUCOSE [id number] 11:42:00 Test Item Value Reference Range Interpretation Comments POC-GLUCOSE METER 91 mg/dL 70-110 : TESTED A T [facility] 6720 (BEAKER) (test code = [facility], [facility]) 63507: Wildlife Refuge Manager/Techni estefani ID = [id number] for WILS ON, SHASTANIE POCT-GLUCOSE [id number] 08:18:00 Test Item Value Reference Range Interpretation Comments POC-GLUCOSE METER 95 mg/dL 70-110 : TESTED A T [facility] 6720 (BEAKER) (test code = [facility], [facility]) 92799: Wildlife Refuge Manager/Techni estefani ID = [id number] for WILS ON, SHASTANIE POCT-GLUCOSE [id number] 21:34:00 Test Item Value Reference Range Interpretation Comments POC-GLUCOSE METER 135 mg/dL 70-110 H : TESTED A T [facility] 6720 (BEAKER) (test code = [facility], [facility]) 41753: Wildlife Refuge Manager/Techni estefani ID = [id number] for PHIL MURRELL TTE POCT-GLUCOSE [id number] 16:56:00 Test Item Value Reference Range Interpretation Comments POC-GLUCOSE METER 140 mg/dL 70-110 H : TESTED A T [facility] 6720 (BEAKER) (test code = [facility], [facility]) 61447: Wildlife Refuge Manager/Techni estefani ID = [id number] for AGUSTÍN GUTIERREZ IAIN POCT-GLUCOSE [id number] 11:38:00 Test Item Value Reference Range Interpretation Comments POC-GLUCOSE METER 126 mg/dL 70-110 H : TESTED A T [facility] 6720 (BEAKER) (test code = [facility], [facility]) 93099: Wildlife Refuge Manager/Techni estefani ID = [id number] for AGUSTÍN GUTIERREZ, IAIN POCT-GLUCOSE [id number] 07:31:00 Test Item Value Reference Range Interpretation Comments POC-GLUCOSE METER 63 mg/dL 70-110 L : TESTED A T [facility] 6720 (BEAKER) (test code = [facility], [facility]) 88822: Wildlife Refuge Manager/Techni estefani ID = [id number] for IAIN DEXTER POCT-GLUCOSE [id number] 21:32:00 Test Item Value Reference Range Interpretation Comments POC-GLUCOSE METER 144 mg/dL 70-110 H : TESTED A T [facility] 6720 (BEAKER) (test code = [facility], 1538) 83662: Wildlife Refuge Manager/Techni estefani ID = [id number] for PHIL MURRELL POCT-GLUCOSE [id number] 17:06:00 Test Item Value Reference Range Interpretation Comments POC-GLUCOSE METER 95 mg/dL 70-110 : TESTED A T [facility] 6720 (BEAKER) (test code = [facility], 1538) 53357: Wildlife Refuge Manager/Techni estefani ID = [id number] for IAIN DEXTER POCT-GLUCOSE [id number] 12:40:00 Test Item Value Reference Range Interpretation Comments POC-GLUCOSE METER 153 mg/dL 70-110 H : TESTED A T [facility] 67[facility] (BEAKER) (test code = [facility], 1538) 83209: Wildlife Refuge Manager/Techni estefani ID = [id number] for IAIN EASTON POCT-GLUCOSE [id number] 07:26:00 Test Item Value Reference Range Interpretation Comments POC-GLUCOSE METER 103 mg/dL 70-110 : TESTED A T [facility] 67[facility] (BEAKER) (test code = [facility], 1538) 16528: Wildlife Refuge Manager/Techni estefani ID = [id number] for IAIN EASTON BASIC METABOLIC [id number] 05:34:00 Test Item Value Reference Range Interpretation [...] S NOT APPLICABLE FOR DIALYSIS PATIEN TS. Wildlife Refuge Manager ID - PIAYA LCBC W/PLT COUNT & AUTO [id number] 04:04:00 Test Item Value Reference Range Interpretation [...] PERCENT (BEAKER) (test code = 2801) POCT-GLUCOSE [id number] 21:37:00 Test Item Value Reference Range Interpretation Comments POC-GLUCOSE METER 251 mg/dL 70-110 H : TESTED A T [facility] 6720 (BEAKER) (test code = [facility], 153) 10760: Wildlife Refuge Manager/Techni estefani ID = [id number] for PHIL MURRELL TTE POCT-GLUCOSE [id number] 17:54:00 Test Item Value Reference Range Interpretation Comments POC-GLUCOSE METER 108 mg/dL 70-110 : TESTED A T [facility] 6720 (BEAKER) (test code = [facility], 153) 17890: Wildlife Refuge Manager/Techni estefani ID = [id number] for Avery Levy POCT-GLUCOSE [id number] 11:57:00 Test Item Value Reference Range Interpretation Comments POC-GLUCOSE METER 85 mg/dL 70-110 : TESTED A T [facility] 6720 (BEAKER) (test code = [facility], 153) 24273: Wildlife Refuge Manager/Techni estefani ID = [id number] for HEAR NE, IAIN POCT-GLUCOSE [id number] 08:11:00 Test Item Value Reference Range Interpretation Comments POC-GLUCOSE METER 66 mg/dL 70-110 L : TESTED A T [facility] 6720 (BEAKER) (test code = [facility], 153) 28742: Wildlife Refuge Manager/Techni estefani ID = [id number] for HEAR NE, IAIN FUNGUS CULTURE + [id number] 15:59:00 Test Item Value Reference Range Interpretation Comments CULTURE (BEAKER) (test No fungus isolated in code = 1095) 28 days FUNGUS SMEAR (BEAKER) No fungi seen (test code = 1406) POCT-GLUCOSE [id number] 15:44:00 Test Item Value Reference Range Interpretation Comments POC-GLUCOSE METER 97 mg/dL 70-110 : TESTED A T [facility] 6720 (BEAKER) (test code = [facility] [place], 1538) 08701: Wildlife Refuge Manager/Techni estefani ID = [id number] for QUEEN SWANSON POCT-GLUCOSE [id number] 10:44:00 Test Item Value Reference Range Interpretation Comments POC-GLUCOSE METER 71 mg/dL 70-110 : TESTED A T [facility] 6720 (BEAKER) (test code = DASIA Garcia [facility], 1538) 14908: Wildlife Refuge Manager/Techni estefani ID = [id number] for QUEEN SWANSON SARS-COV2/RT-PCR ([facility])2019-12-06 08:14:00 Test Item Value Reference Range Interpretation Comments SARS-COV2/RT-PCR (test Negative Not Detected, Negative, code = 9909154) See external report for linked test SARS-COV-2 PERFORMING LAB [facility] (test code = 0663483) Negative result for this test determines that [...] of the Act.Fact Sheet for Healthcare Prov iders:https://www.[employer]/sites/default/files/product/documents/Fact_Sheet_HC _Wczeqjcqi_Sxlm_XIEC-HgY-0.pdfFact Sheet for Healthcare Patients:https://www.[employer]/sites/default/files/product/docume nts/Crsm_Hwjsd_Btdmmdbr_Xewk_BSZM-InE-0.pdfPerforming Laboratory:[facility], [place] [id number] METER 2019-12-06 08:03:00 Test Item Value Reference Range Interpretation Comments POC-GLUCOSE METER 68 mg/dL 70-110 L : TESTED A T [facility] 6720 (BEAKER) (test code = [facility] Garcia [facility], 1538) 53755: Wildlife Refuge Manager/Techni estefani ID = [id number] for QUEEN SWANSON BASIC METABOLIC [id number] 07:45:00 Test Item Value Reference Range Interpretation [...] S NOT APPLICABLE FOR DIALYSIS PATIEN TS. Wildlife Refuge Manager ID - [id number] 07:30:00 Test Item Value Reference Range Interpretation Comments PHOSPHORUS (BEAKER) (test code = 4.8 mg/dL 2.3-4.7 H 604) Wildlife Refuge Manager ID - [id number] 07:30:00 Test Item Value Reference Range Interpretation Comments MAGNESIUM (BEAKER) (test code = 2.4 mg/dL 1.6-2.6 627) Wildlife Refuge Manager ID - EDASICBC W/PLT COUNT & AUTO [id number] 07:19:00 Test Item Value Reference Range Interpretation [...] PERCENT (BEAKER) (test code = 2801) PROTHROMBIN [id number] 06:53:00 Test Item Value Reference Range Interpretation [...] 2.5-3.5 for patients wiht mechanical heart valves.POCT-GLUCOSE [id number] 21:16:00 Test Item Value Reference Range Interpretation Comments POC-GLUCOSE METER 257 mg/dL 70-110 H : TESTED A T [facility] 6720 (Access Mobile) (test code = [employer] [facility], 1538) 30310: Wildlife Refuge Manager/Techni estefani ID = [id number] for MURRELL, PHIL TTE POCT-GLUCOSE [id number] 21:21:00 Test Item Value Reference Range Interpretation Comments POC-GLUCOSE METER 247 mg/dL 70-110 H : TESTED A T [facility] 6720 (Access Mobile) (test code = [facility] [employer], 1538) 52686: Wildlife Refuge Manager/Techni estefani ID = [id number] for SA HIGGINS, CRYSTAL POCT-GLUCOSE [id number] 12:32:00 Test Item Value Reference Range Interpretation Comments POC-GLUCOSE METER 95 mg/dL 70-110 : TESTED A T [facility] 6720 (BEAKER) (test code = [facility], 153) 19099: Wildlife Refuge Manager/Techni estefani ID = [id number] for QUANG OS, JACOB POCT-GLUCOSE [id number] 08:26:00 Test Item Value Reference Range Interpretation Comments POC-GLUCOSE METER 98 mg/dL 70-110 : TESTED A T [facility] 6720 (BEAKER) (test code = [facility], 1538) 88151: Wildlife Refuge Manager/Techni estefani ID = [id number] for QUANG OS, JACOB POCT-GLUCOSE [id number] 21:54:00 Test Item Value Reference Range Interpretation Comments POC-GLUCOSE METER 153 mg/dL 70-110 H : TESTED A T [facility] 6720 (BEAKER) (test code = [facility], [facility]) 61776: Wildlife Refuge Manager/Techni estefani ID = [id number] for UL LATTIL, SJ POCT-GLUCOSE [id number] 17:04:00 Test Item Value Reference Range Interpretation Comments POC-GLUCOSE METER 194 mg/dL 70-110 H : TESTED A T [facility] 6720 (BEAKER) (test code = [facility], 153) 08494: Wildlife Refuge Manager/Techni estefani ID = [id number] for HIGGINS BLET, JANIE POCT-GLUCOSE [id number] 12:29:00 Test Item Value Reference Range Interpretation Comments POC-GLUCOSE METER 162 mg/dL 70-110 H : TESTED A T [facility] 6720 (BEAKER) (test code = [facility], 1538) 38425: Wildlife Refuge Manager/Techni estefani ID = [id number] for HIGGINS BLET, JANIE POCT-GLUCOSE [id number] 09:42:00 Test Item Value Reference Range Interpretation Comments POC-GLUCOSE METER 178 mg/dL 70-110 H : TESTED A T [facility] 6720 (BEAKER) (test code = [facility], [facility]) 57749: Wildlife Refuge Manager/Techni estefani ID = [id number] for NG JOSE, TYRONE POCT-GLUCOSE [id number] 07:19:00 Test Item Value Reference Range Interpretation Comments POC-GLUCOSE METER 115 mg/dL 70-110 H : TESTED A T [facility] 6720 (BEAKER) (test code = [facility], 153) 69176: Wildlife Refuge Manager/Techni estefani ID = [id number] for ARUNA LATMARCELO, SJ CREATINE KINASE (CK)2019-11-29 06:25:00 Test Item Value Reference Range Interpretation Comments CREATINE KINASE TOTAL (BEAKER) (test 249 U/L 29-200 H code = 380) Wildlife Refuge Manager ID - JAQUELINE MPOCT-GLUCOSE [id number] 21:03:00 Test Item Value Reference Range Interpretation Comments POC-GLUCOSE METER 157 mg/dL 70-110 H : TESTED A T [facility] 6720 (BEAKER) (test code = [facility], 153) 25925: Wildlife Refuge Manager/Techni estefani ID = [id number] for UL LATMARCELO, SJ POCT-GLUCOSE [id number] 18:26:00 Test Item Value Reference Range Interpretation Comments POC-GLUCOSE METER 136 mg/dL 70-110 H : TESTED A T [facility] 6720 (BEAKER) (test code = [facility], 1538) 28928: Wildlife Refuge Manager/Techni estefani ID = [id number] for TYRONE VAZQUEZ POCT-GLUCOSE [id number] 11:59:00 Test Item Value Reference Range Interpretation Comments POC-GLUCOSE METER 160 mg/dL 70-110 H : TESTED A T [facility] 6720 (BEAKER) (test code = [facility], 1538) 81453: Wildlife Refuge Manager/Techni estefani ID = [id number] for FA ITH, GUNNER POCT-GLUCOSE [id number] 08:00:00 Test Item Value Reference Range Interpretation Comments POC-GLUCOSE METER 89 mg/dL 70-110 : TESTED A T [facility] 6720 (BEAKER) (test code = [facility], 1538) 69786: Wildlife Refuge Manager/Techni estefani ID = [id number] for FAIT H, GUNNER BASIC METABOLIC [id number] 04:43:00 Test Item Value Reference Range Interpretation [...] S NOT APPLICABLE FOR DIALYSIS PATIEN TS. Wildlife Refuge Manager ID - BSCBC W/PLT COUNT & AUTO [id number] 04:35:00 Test Item Value Reference Range Interpretation [...] PERCENT (BEAKER) (test code = 2801) POCT-GLUCOSE [id number] 21:07:00 Test Item Value Reference Range Interpretation Comments POC-GLUCOSE METER 146 mg/dL 70-110 H : TESTED A T [facility] 6720 (BEAKER) (test code = [facility], 153) 81678: Wildlife Refuge Manager/Techni estefani ID = [id number] for JAD SALGUERO POCT-GLUCOSE [id number] 17:47:00 Test Item Value Reference Range Interpretation Comments POC-GLUCOSE METER 138 mg/dL 70-110 H : TESTED A T [facility] 6720 (BEAKER) (test code = [facility], 153) 00684: Wildlife Refuge Manager/Techni estefani ID = [id number] for SA NTOS, JACOB POCT-GLUCOSE [id number] 12:12:00 Test Item Value Reference Range Interpretation Comments POC-GLUCOSE METER 157 mg/dL 70-110 H : TESTED A T [facility] 6720 (BEAKER) (test code = [facility], 1538) 67911: Wildlife Refuge Manager/Techni estefani ID = [id number] for SA NTOS, JACOB POCT-GLUCOSE [id number] 09:04:00 Test Item Value Reference Range Interpretation Comments POC-GLUCOSE METER 142 mg/dL 70-110 H : TESTED A T [facility] 6720 (BEAKER) (test code = [facility] [place], 1538) 39761: Wildlife Refuge Manager/Techni estefani ID = [id number] for JACOB LYLES BASIC METABOLIC [id number] 05:51:00 Test Item Value Reference Range Interpretation [...] S NOT APPLICABLE FOR DIALYSIS PATIEN TS. Wildlife Refuge Manager ID - BSCBC W/PLT COUNT & AUTO [id number] 05:17:00 Test Item Value Reference Range Interpretation [...] PERCENT (BEAKER) (test code = 2801) POCT-GLUCOSE [id number] 21:20:00 Test Item Value Reference Range Interpretation Comments POC-GLUCOSE METER 136 mg/dL 70-110 H : TESTED A T [facility] 6720 (BEAKER) (test code = [facility] [place], 1538) 89575: Wildlife Refuge Manager/Techni estefani ID = [id number] for CRYSTAL RANGEL POCT-GLUCOSE [id number] 17:34:00 Test Item Value Reference Range Interpretation Comments POC-GLUCOSE METER 205 mg/dL 70-110 H : TESTED A T [facility] 6720 (BEAKER) (test code = [facility], 1538) 68369: Wildlife Refuge Manager/Techni estefani ID = [id number] for JACOB LYLES POCT-GLUCOSE [id number] 11:22:00 Test Item Value Reference Range Interpretation Comments POC-GLUCOSE METER 98 mg/dL 70-110 : TESTED A T [facility] 6720 (BEAKER) (test code = [facility], 1538) 63243: Wildlife Refuge Manager/Techni estefani ID = [id number] for Avery Mendoza POCT-GLUCOSE [id number] 08:07:00 Test Item Value Reference Range Interpretation Comments POC-GLUCOSE METER 117 mg/dL 70-110 H : TESTED A T [facility] 6720 (BEAKER) (test code = [facility], 153) 10049: Wildlife Refuge Manager/Techni estefani ID = [id number] for JANIE KAUR CBC W/PLT COUNT & AUTO [id number] 05:21:00 Test Item Value Reference Range Interpretation [...] (BEAKER) (test code = 2801) BASIC METABOLIC [id number] 05:17:00 Test Item Value Reference Range Interpretation [...] S NOT APPLICABLE FOR DIALYSIS PATIEN TS. Wildlife Refuge Manager ID - DBPOCT-GLUCOSE [id number] 21:45:00 Test Item Value Reference Range Interpretation Comments POC-GLUCOSE METER 144 mg/dL 70-110 H : TESTED A T [facility] 6720 (BEAKER) (test code = [facility], 1538) 35098: Wildlife Refuge Manager/Techni estefani ID = [id number] for UL LATTIL, SJ POCT-GLUCOSE [id number] 17:16:00 Test Item Value Reference Range Interpretation Comments POC-GLUCOSE METER 134 mg/dL 70-110 H : TESTED A T [facility] 6720 (BEAKER) (test code = [facility], 1538) 00256: Wildlife Refuge Manager/Techni estefani ID = [id number] for FA ITH, GUNNER POCT-GLUCOSE [id number] 12:00:00 Test Item Value Reference Range Interpretation Comments POC-GLUCOSE METER 120 mg/dL 70-110 H : TESTED A T [facility] 6720 (BEAKER) (test code = [facility], 1538) 35625: Wildlife Refuge Manager/Techni estefani ID = [id number] for FA ITH, GUNNER POCT-GLUCOSE [id number] 08:04:00 Test Item Value Reference Range Interpretation Comments POC-GLUCOSE METER 74 mg/dL 70-110 : TESTED A T [facility] 6720 (BEAKER) (test code = [facility], 1538) 55452: Wildlife Refuge Manager/Techni estefani ID = [id number] for FAIT H, GUNNER POCT-GLUCOSE [id number] 21:31:00 Test Item Value Reference Range Interpretation Comments POC-GLUCOSE METER 155 mg/dL 70-110 H : TESTED A T [facility] 6720 (BEAKER) (test code = [facility], 1538) 42016: Wildlife Refuge Manager/Techni estefani ID = [id number] for UL LATTIL, SJ POCT-GLUCOSE [id number] 17:03:00 Test Item Value Reference Range Interpretation Comments POC-GLUCOSE METER 127 mg/dL 70-110 H : TESTED A T [facility] 6720 (BEAKER) (test code = [facility], 1538) 13368: Wildlife Refuge Manager/Techni estefani ID = [id number] for FA ITH, GUNNER POCT-GLUCOSE [id number] 12:28:00 Test Item Value Reference Range Interpretation Comments POC-GLUCOSE METER 147 mg/dL 70-110 H : TESTED A T [facility] 6720 (BEAKER) (test code = [facility], [facility]) 85348: Wildlife Refuge Manager/Techni estefani ID = [id number] for FA TY, GUNNER POCT-GLUCOSE [id number] 08:06:00 Test Item Value Reference Range Interpretation Comments POC-GLUCOSE METER 107 mg/dL 70-110 : TESTED A T [facility] 6720 (BEAKER) (test code = [facility], [facility]) 87733: Wildlife Refuge Manager/Techni estfeani ID = [id number] for FA TY, GUNNER POCT-GLUCOSE [id number] 21:07:00 Test Item Value Reference Range Interpretation Comments POC-GLUCOSE METER 179 mg/dL 70-110 H : TESTED A T [facility] 6720 (BEAKER) (test code = [facility], 1538) 71327: Wildlife Refuge Manager/Techni estefani ID = [id number] for UL LATTIL, SJ POCT-GLUCOSE [id number] 17:04:00 Test Item Value Reference Range Interpretation Comments POC-GLUCOSE METER 201 mg/dL 70-110 H : TESTED A T [facility] 6720 (BEAKER) (test code = [facility], 1538) 53207: Wildlife Refuge Manager/Techni estefani ID = [id number] for FA TY, GUNNER POCT-GLUCOSE [id number] 12:29:00 Test Item Value Reference Range Interpretation Comments POC-GLUCOSE METER 110 mg/dL 70-110 : TESTED A T [facility] 6720 (BEAKER) (test code = [facility], [facility]) 04157: Wildlife Refuge Manager/Techni estefani ID = [id number] for Avery Levy SARS-COV2/RT-PCR ([facility])2019-11-23 11:35:00 Test Item Value Reference Range Interpretation Comments SARS-COV2/RT-PCR (test Negative Not Detected, Negative, code = 5766446) See external report for linked test SARS-COV-2 PERFORMING LAB [facility] (test code = 2142451) Negative result for this test determines that [...] of the Act.Fact Sheet for Healthcare Prov iders:https://www.[employer]/sites/default/files/product/documents/Fact_Sheet_HC _Phbobuhpq_Chgf_RIUC-VqL-3.pdfFact Sheet for Healthcare Patients:https://www.[employer]/sites/default/files/product/docume nts/Tbib_Lvwxg_Lfumeefq_Sgxt_EQOB-KhN-3.pdfPerforming Laboratory:[facility], [place] [address]WUUN-[id number] METER 2019-11-23 08:05:00 Test Item Value Reference Range Interpretation Comments POC-GLUCOSE METER 92 mg/dL 70-110 : TESTED A [place] [facility] 6720 (NOE) (test code = DASIA Garcia [facility], 1538) 81697: Wildlife Refuge Manager/Techni estefani ID = [id number] for GUNNER MUHAMMAD POCT-GLUCOSE [id number] 21:46:00 Test Item Value Reference Range Interpretation Comments POC-GLUCOSE METER 145 mg/dL 70-110 H : TESTED A T [facility] 6720 (BEAKER) (test code = [facility], 1538) 91372: Wildlife Refuge Manager/Techni estefani ID = [id number] for CA HEYDI SHETTYHEMI POCT-GLUCOSE [id number] 17:51:00 Test Item Value Reference Range Interpretation Comments POC-GLUCOSE METER 180 mg/dL 70-110 H : TESTED A T [facility] 6720 (BEAKER) (test code = [facility], 1538) 84878: Wildlife Refuge Manager/Techni estefani ID = [id number] for SA NTOS, JACOB POCT-GLUCOSE [id number] 11:57:00 Test Item Value Reference Range Interpretation Comments POC-GLUCOSE METER 151 mg/dL 70-110 H : TESTED A T [facility] 6720 (BEAKER) (test code = [facility], 1538) 74255: Wildlife Refuge Manager/Techni estefani ID = [id number] for SA NTOS, JACOB POCT-GLUCOSE [id number] 08:07:00 Test Item Value Reference Range Interpretation Comments POC-GLUCOSE METER 110 mg/dL 70-110 : TESTED A T [facility] 6720 (BEAKER) (test code = [facility], 1538) 82189: Wildlife Refuge Manager/Techni estefani ID = [id number] for SA NTOS, JACOB CREATINE KINASE (CK)2019-11-22 05:38:00 Test Item Value Reference Range Interpretation Comments CREATINE KINASE TOTAL (BEAKER) (test 57 U/L 29-200 code = 380) Wildlife Refuge Manager ID - PIAYA LPOCT-GLUCOSE [id number] 21:49:00 Test Item Value Reference Range Interpretation Comments POC-GLUCOSE METER 171 mg/dL 70-110 H : TESTED A T [facility] 6720 (BEAKER) (test code = [facility], 1538) 99056: Wildlife Refuge Manager/Techni estefani ID = [id number] for CA SENA, TIMA ANAEROBIC [id number] 18:36:00 Test Item Value Reference Range Interpretation Comments CULTURE (BEAKER) (test No anaerobes isolated code = 1095) HEPATITIS B SURFACE [id number] 17:43:00 Test Item Value Reference Range Interpretation Comments HEPATITIS B SURFACE ANTIGEN (2) Nonreactive Nonreactive (BEAKER) (test code = 2585) Specimen is considered negative for HBsAg.POCT-GLUCOSE [id number] 12:07:00 Test Item Value Reference Range Interpretation Comments POC-GLUCOSE METER 106 mg/dL 70-110 : TESTED A T [facility] 6720 (BEAKER) (test code = [facility], [facility]) 58186: Wildlife Refuge Manager/Techni estefani ID = [id number] for SA NTOS, JACOB POCT-GLUCOSE [id number] 08:05:00 Test Item Value Reference Range Interpretation Comments POC-GLUCOSE METER 113 mg/dL 70-110 H : TESTED A T [facility] 6720 (BEAKER) (test code = [facility], [facility]) 19286: Wildlife Refuge Manager/Techni estefani ID = [id number] for SA NTOS, JACOB POCT-GLUCOSE [id number] 22:58:00 Test Item Value Reference Range Interpretation Comments POC-GLUCOSE METER 201 mg/dL 70-110 H : TESTED A T [facility] 6720 (BEAKER) (test code = [facility], [facility]) 63264: Wildlife Refuge Manager/Techni estefani ID = [id number] for UL LATTIL, SJ POCT-GLUCOSE [id number] 17:14:00 Test Item Value Reference Range Interpretation Comments POC-GLUCOSE METER 128 mg/dL 70-110 H : TESTED A T [facility] 6720 (BEAKER) (test code = [facility], [facility]) 92166: Wildlife Refuge Manager/Techni estefani ID = [id number] for FA ITH, GUNNER POCT-GLUCOSE [id number] 12:17:00 Test Item Value Reference Range Interpretation Comments POC-GLUCOSE METER 171 mg/dL 70-110 H : TESTED A T [facility] 6720 (BEAKER) (test code = [facility], 153) 95667: Wildlife Refuge Manager/Techni estefani ID = [id number] for FA ITH, GUNNER POCT-GLUCOSE [id number] 23:29:00 Test Item Value Reference Range Interpretation Comments POC-GLUCOSE METER 210 mg/dL 70-110 H : TESTED A T [facility] 6720 (BEAKER) (test code = [facility], [facility]) 29230: Wildlife Refuge Manager/Techni estefani ID = [id number] for SJ HERBERT POCT-GLUCOSE [id number] 20:51:00 Test Item Value Reference Range Interpretation Comments POC-GLUCOSE METER 132 mg/dL 70-110 H : TESTED A T [facility] 6720 (BEAKER) (test code = [facility], 1538) 52729: Wildlife Refuge Manager/Techni estefani ID = [id number] for ALTAGRACIA SQUIRES POCT-GLUCOSE [id number] 12:26:00 Test Item Value Reference Range Interpretation Comments POC-GLUCOSE METER 155 mg/dL 70-110 H : TESTED A T [facility] 6720 (BEAKER) (test code = [facility], 1538) 98319: Wildlife Refuge Manager/Techni estefani ID = [id number] for GUNNER PANDYA POCT-GLUCOSE [id number] 08:09:00 Test Item Value Reference Range Interpretation Comments POC-GLUCOSE METER 109 mg/dL 70-110 : TESTED A T [facility] 6720 (BEAKER) (test code = [facility], 1538) 49838: Wildlife Refuge Manager/Techni estefani ID = [id number] for GUNNER PANDYA BASIC METABOLIC [id number] 07:08:00 Test Item Value Reference Range Interpretation [...] S NOT APPLICABLE FOR DIALYSIS PATIEN TS. Wildlife Refuge Manager ID - PIAYA LCBC (HEMOGRAM ONLY)2019-11-19 04:19:00 [...] 0-0 (BEAKER) (test code = 413) POCT-GLUCOSE [id number] 21:23:00 Test Item Value Reference Range Interpretation Comments POC-GLUCOSE METER 182 mg/dL 70-110 H : TESTED A T [facility] 6720 (BEAKER) (test code = [facility], 1538) 43015: Wildlife Refuge Manager/Techni estefani ID = [id number] for CA RBAJAL, TIMA POCT-GLUCOSE [id number] 17:32:00 Test Item Value Reference Range Interpretation Comments POC-GLUCOSE METER 142 mg/dL 70-110 H : TESTED A T [facility] 6720 (BEAKER) (test code = [facility], 1538) 54944: Wildlife Refuge Manager/Techni estefani ID = [id number] for SA NTOS, JACOB POCT-GLUCOSE [id number] 13:24:00 Test Item Value Reference Range Interpretation Comments POC-GLUCOSE METER 164 mg/dL 70-110 H : TESTED A T [facility] 6720 (BEAKER) (test code = [facility], 1538) 62884: Wildlife Refuge Manager/Techni estefani ID = [id number] for JACOB LYLES BASIC METABOLIC [id number] 12:57:00 Test Item Value Reference Range Interpretation [...] NOT APPLICABLE FOR DIALYSIS PATIEN TS. POCT-GLUCOSE [id number] 08:04:00 Test Item Value Reference Range Interpretation Comments POC-GLUCOSE METER 137 mg/dL 70-110 H : TESTED A T [facility] 6720 (BEAKER) (test code = [facility], 1538) 23965: Wildlife Refuge Manager/Techni estefani ID = [id number] for JACOB LYLES CBC (HEMOGRAM ONLY)2019-11-18 06:36:00 [...] 0-0 (BEAKER) (test code = 413) POCT-GLUCOSE [id number] 22:05:00 Test Item Value Reference Range Interpretation Comments POC-GLUCOSE METER 123 mg/dL 70-110 H : TESTED A T [facility] 6720 (BEAKER) (test code = [facility], 1538) 89363: Wildlife Refuge Manager/Techni estefani ID = [id number] for ABDIRAHMAN OSORIO POCT-GLUCOSE [id number] 17:52:00 Test Item Value Reference Range Interpretation Comments POC-GLUCOSE METER 111 mg/dL 70-110 H : TESTED A T [facility] 6720 (BEAKER) (test code = [facility], 153) 52171: Wildlife Refuge Manager/Techni estefani ID = [id number] for JACOB LYLES BASIC METABOLIC [id number] 09:54:00 Test Item Value Reference Range Interpretation [...] S NOT APPLICABLE FOR DIALYSIS PATIEN TS. Wildlife Refuge Manager ID - JAQUELINE MPOCT-GLUCOSE [id number] 08:13:00 Test Item Value Reference Range Interpretation Comments POC-GLUCOSE METER 134 mg/dL 70-110 H : TESTED A T [facility] 6720 (BEAKER) (test code = [facility], 1538) 04331: Wildlife Refuge Manager/Techni estefani ID = [id number] for JACOB LYLES CBC (HEMOGRAM ONLY)2019-11-17 07:03:00 [...] 0-0 (BEAKER) (test code = 413) POCT-GLUCOSE [id number] 21:52:00 Test Item Value Reference Range Interpretation Comments POC-GLUCOSE METER 154 mg/dL 70-110 H : TESTED A T [facility] 6720 (BEAKER) (test code = [facility], 1538) 49433: Wildlife Refuge Manager/Techni estefani ID = [id number] for SA CRYSTAL HIGGINS POCT-GLUCOSE [id number] 17:47:00 Test Item Value Reference Range Interpretation Comments POC-GLUCOSE METER 179 mg/dL 70-110 H : TESTED A T [facility] 6720 (BEAKER) (test code = [facility], 1538) 68330: Wildlife Refuge Manager/Techni estefani ID = [id number] for JACOB LYLES POCT-GLUCOSE [id number] 11:58:00 Test Item Value Reference Range Interpretation Comments POC-GLUCOSE METER 158 mg/dL 70-110 H : TESTED A T [facility] 6720 (BEAKER) (test code = [facility], 1538) 07927: Wildlife Refuge Manager/Techni estefani ID = [id number] for JACOB LYLES BASIC METABOLIC [id number] 08:15:00 Test Item Value Reference Range Interpretation [...] S NOT APPLICABLE FOR DIALYSIS PATIEN TS. Wildlife Refuge Manager ID - ANTONY FPOCT-GLUCOSE [id number] 08:09:00 Test Item Value Reference Range Interpretation Comments POC-GLUCOSE METER 163 mg/dL 70-110 H : TESTED A T [facility] 6720 (BEAKER) (test code = [facility] Jose [facility], 153) [address]: Wildlife Refuge Manager/Techni estefani ID = [id number] for JACOB LYLES CBC (HEMOGRAM ONLY)2019-11-16 07:04:00 [...] 0-0 (BEAKER) (test code = 413) POCT-GLUCOSE [id number] 21:05:00 Test Item Value Reference Range Interpretation Comments POC-GLUCOSE METER 199 mg/dL 70-110 H : TESTED A T [facility] 6720 (BEAKER) (test code = [facility] Jose [facility], 153) 13425: Wildlife Refuge Manager/Techni estefani ID = [id number] for SJ HERBERT POCT-GLUCOSE [id number] 17:09:00 Test Item Value Reference Range Interpretation Comments POC-GLUCOSE METER 129 mg/dL 70-110 H : TESTED A T [facility] 6720 (BEAKER) (test code = [facility], 1538) 57267: Wildlife Refuge Manager/Techni estefani ID = [id number] for GUNNER PANDYA [id number] 16:14:00 Test Item Value Reference Range Interpretation Comments ACTIVATED CLOTTING TIME 202 sec : 74 -137 seconds, (BEAKER) (test code = Baselsalvatore ne: TESTED AT 441) [facility] [address] [facility], 770 30: Wildlife Refuge Manager/Techni estefani ID = [id number] for DAILY HOGUE POCT-GLUCOSE [id number] 15:08:00 Test Item Value Reference Range Interpretation Comments POC-GLUCOSE METER 126 mg/dL 70-110 H : TESTED A T [facility] 6720 (BEAKER) (test code = [facility], 1538) 94587: Wildlife Refuge Manager/Techni estefani ID = [id number] for FERNANDA YOUNGER POCT-GLUCOSE [id number] 14:35:00 Test Item Value Reference Range Interpretation Comments POC-GLUCOSE METER 137 mg/dL 70-110 H : TESTED A T [facility] 6720 (BEAKER) (test code = [facility], 1538) 10105: Wildlife Refuge Manager/Techni estefani ID = [id number] for HARLEY GARCIA TYRONE (CELLAVISION MANUAL DIFF)2019-11-15 09:51:00 Test Item Value [...] CONCENTRATION Adequate (CELLAVISION)(BEAKER) (test code = 3438) Wildlife Refuge Manager ID - Daily OverholtUser comments: Slide comments:POCT-GLUCOSE METER 2019-11-15 08:08:00 Test Item Value Reference Range Interpretation Comments POC-GLUCOSE METER 128 mg/dL 70-110 H : [facility] ([facility]ER[facility] (test code = D[facility], 1538) 72449: Wildlife Refuge Manager/Techni estefani ID = [id number] for TRE CRAWFORD GUNNER BASIC METABOLIC [id number] 06:08:00 Test Item Value Reference Range Interpretation [...] S NOT APPLICABLE FOR DIALYSIS PATIEN TS. Wildlife Refuge Manager ID - EDASICREATINE KINASE (CK)2019-11-15 06:06:00 Test Item Value Reference Range Interpretation Comments CREATINE KINASE TOTAL (BEAKER) (test 46 U/L 29-200 code = 380) Wildlife Refuge Manager ID - [id number] 05:09:00 Test Item Value Reference Range Interpretation Comments PARTIAL THROMBOPLASTIN TIME 52.1 seconds 22.5-36.0 H (BEAKER) (test code = 760) PROTHROMBIN TIME/[id number] 05:08:00 Test Item Value Reference Range Interpretation [...] 0-0 (BEAKER) (test code = 413) POCT-GLUCOSE [id number] 21:29:00 Test Item Value Reference Range Interpretation Comments POC-GLUCOSE METER 189 mg/dL 70-110 H : TESTED A T [facility] 6720 (BEAKER) (test code = [facility], 1538) 77615: Wildlife Refuge Manager/Techni estefani ID = [id number] for UL ERIC SJ POCT-GLUCOSE [id number] 17:22:00 Test Item Value Reference Range Interpretation Comments POC-GLUCOSE METER 208 mg/dL 70-110 H : TESTED A T [facility] 6720 (BEAKER) (test code = [facility], 1538) 80363: Wildlife Refuge Manager/Techni estefani ID = [id number] for LURDES TEMPLE, SUREKHA TISSUE [id number] 16:50:00Surgical Pathology Report Case: [id number] Authorizing Provider: Star Cloud DPM Collected: 11/08/2019 03:53 PM Ordering Location: [facility] Received: 11/09/2019 09:35 AM PERIOPERATIVE [...] SHEATH, EXCISION: - TENDINOUS TISSUE WITH NECROSIS ANDDYSTROPHIC CALCIFICATIONS - VESSEL WITH CALCIFICATION - NEGATIVE FOR MALIGNANCY D. SKIN, RIGHT FOOT ESCHAR, EXCISION: - GANGRENOUS NECROSIS - NEGATIVE FOR MALIGNANCY Signing Pathologist Direct Phone Line: [phone] signed by Vandana Beverly MD on 11/14/2019 at 4:50 [id number] X 4; [phone] X 2Non-healing surgical wound, initial encounter A. [...] red trabecular bone with no gross lesions. Director Of Land sections are submitted.Section code:A1: Smaller gardner-baca bone margin, en face, following decalcificationA2: Opposite bone margin, en face, following decalcificationB. Received fresh labeled with the patient's name, medical record number and "metatarsal, right" is a metatarsal head measuring 4.3 cm in length and ranging 1.2-2.2 cm in diameter. There is a minimal amount of a ttached hemorrhagic soft tissue. The articular surface is gardner-white and smooth. The specimen is sectioned to reveal heterogeneous gardner-red trabecular bone with no gross lesions. Director Of Land sections are submitted.Section code:B1: Bone margin, en face, following decalcificationB2 member services representative of hemorrhagic soft tissue and bone, following decalcificationC. Received fresh labeled with the patient'sname, medical record number and "tendon/tendon sheath" is an 8.1 x 1.3 x 0.3 cm gardner-baca, congested tendon. The specimen is serially sectioned and no gross lesions are identified. Director Of Land sections are submitted in C1.D. Received fresh labeled with the patient's name, medical record number and "right foot eschar" is 11.5 x 11.5 x 0.8 cm aggregate of 4 irregular portions of black- baca, hyperkeratotic skin. Specimen is serially sectioned to reveal hard, hemorrhagic tissue. Director Of Land sections are submitted in D1-D2.MIKE NavaS, PA (ASCP)PERFORMEDPOCT-GLUCOSE [id number] 12:59:00 Test Item Value Reference Range Interpretation Comments POC-GLUCOSE METER 257 mg/dL 70-110 H : TESTED A T [facility] 6720 (BEAKER) (test code = [facility], 1538) 06114: Wildlife Refuge Manager/Techni estefani ID = [id number] for OL MOS, SUREKHA POCT-GLUCOSE [id number] 08:50:00 Test Item Value Reference Range Interpretation Comments POC-GLUCOSE METER 183 mg/dL 70-110 H : TESTED A T [facility] 6720 (BEAKER) (test code = [facility], 1538) 53143: Wildlife Refuge Manager/Techni estefani ID = [id number] for OL MOS, SUREKHA BASIC METABOLIC [id number] 06:49:00 Test Item Value Reference Range Interpretation [...] S NOT APPLICABLE FOR DIALYSIS PATIEN TS. Wildlife Refuge Manager ID - DANITZA [id number] 06:48:00 Test Item Value Reference Range Interpretation Comments MAGNESIUM (BEAKER) (test code = 2.1 mg/dL 1.6-2.6 627) Wildlife Refuge Manager ID - DANITZA LCBC W/PLT COUNT & AUTO [id number] 05:42:00 Test Item Value Reference Range Interpretation [...] PERCENT (BEAKER) (test code = 2801) CALCIUM, [id number] 05:04:00 Test Item Value Reference Range Interpretation Comments CALCIUM IONIZED (BEAKER) (test 1.02 mmol/L 1.12-1.27 L code = 698) PH, BLOOD (BEAKER) (test code = 7.42 1810) POCT-GLUCOSE [id number] 21:20:00 Test Item Value Reference Range Interpretation Comments POC-GLUCOSE METER 334 mg/dL 70-110 H : [facility] (BEAKER) (test code = DASIA Garcia [facility], 1538) 57563: Wildlife Refuge Manager/Techni estefani ID = [id number] for JAD SALGUERO POCT-GLUCOSE [id number] 17:37:00 Test Item Value Reference Range Interpretation Comments POC-GLUCOSE METER 256 mg/dL 70-110 H : [facility] (BEAKER) (test code = [facility], 1538) 22035: Wildlife Refuge Manager/Techni estefani ID = [id number] for JACOB LYLES SARS-COV2/RT-PCR ([facility])2019-11-13 13:07:00 Test Item Value Reference Range Interpretation Comments SARS-COV2/RT-PCR (test Negative Not Detected, Negative, code = 9856786) See external report for linked test SARS-COV-2 PERFORMING LAB [facility] (test code = 8461799) Negative result for this test determines that [...] of the Act.Fact Sheet for Healthcare Prov iders:https://www.[employer]/sites/default/files/product/documents/Fact_Sheet_HC _Iiaugcina_Netv_RFEB-NgJ-3.pdfFact Sheet for Healthcare Patients:https://www.[employer]/sites/default/files/product/docume nts/Cdiu_Cyugd_Udiqqejj_Uwit_WJGH-MfM-5.pdfPerforming Laboratory:[address], [place] [address]TIHRT METABOLIC PANEL 2019-11-13 06:03:00 Test Item Value [...] S NOT APPLICABLE FOR DIALYSIS PATIEN TS. Wildlife Refuge Manager ID - PIAYA LPOCT-GLUCOSE [id number] 21:20:00 Test Item Value Reference Range Interpretation Comments POC-GLUCOSE METER 234 mg/dL 70-110 H : TESTED A T [facility] 6720 (BEAKER) (test code = [facility], 1538) 36455: Wildlife Refuge Manager/Techni estefani ID = [id number] for SA HIGGINSCRYSTAL POCT-GLUCOSE [id number] 17:07:00 Test Item Value Reference Range Interpretation Comments POC-GLUCOSE METER 233 mg/dL 70-110 H : TESTED A T [facility] 6720 (BEAKER) (test code = [facility], 1538) 58146: Wildlife Refuge Manager/Techni estefani ID = [id number] for GUNNER PANDYA POCT-GLUCOSE [id number] 12:06:00 Test Item Value Reference Range Interpretation Comments POC-GLUCOSE METER 248 mg/dL 70-110 H : TESTED A T [facility] 6720 (BEAKER) (test code = [facility], 1538) 81886: Wildlife Refuge Manager/Techni estefani ID = [id number] for FA GUNNER CRAWFORD BASIC METABOLIC [id number] 11:18:00 Test Item Value Reference Range Interpretation [...] S NOT APPLICABLE FOR DIALYSIS PATIEN TS. Wildlife Refuge Manager ID - JAQUELINE MOperator ID - JEREMY [id number] 11:15:00 Test Item Value Reference Range Interpretation Comments MAGNESIUM (BEAKER) (test code = 2.0 mg/dL 1.6-2.6 627) Wildlife Refuge Manager ID - JEREMY MPOCT-GLUCOSE [id number] 07:56:00 Test Item Value Reference Range Interpretation Comments POC-GLUCOSE METER 137 mg/dL 70-110 H : TESTED A T [facility] 6720 (BEAKER) (test code = [facility] [place], 1538) 90752: Wildlife Refuge Manager/Techni estefani ID = [id number] for GUNNER PANDYA CALCIUM, [id number] 07:50:00 Test Item Value Reference Range Interpretation Comments CALCIUM IONIZED (BEAKER) (test 0.98 mmol/L 1.12-1.27 L code = 698) PH, BLOOD (BEAKER) (test code = 7.42 1810) CBC W/PLT COUNT & AUTO [id number] 06:03:00 Test Item Value Reference Range Interpretation [...] PERCENT (BEAKER) (test code = 2801) POCT-GLUCOSE [id number] 21:00:00 Test Item Value Reference Range Interpretation Comments POC-GLUCOSE METER 233 mg/dL 70-110 H : TESTED A T [facility] 6720 (BEAKER) (test code = [facility], 1538) 57859: Wildlife Refuge Manager/Techni estefani ID = [id number] for UL LATMARCELO, SJ POCT-GLUCOSE [id number] 16:59:00 Test Item Value Reference Range Interpretation Comments POC-GLUCOSE METER 237 mg/dL 70-110 H : TESTED A T [facility] 6720 (BEAKER) (test code = [facility], 1538) 46855: Wildlife Refuge Manager/Techni estefani ID = [id number] for GUNNER PANDYA CREATINE KINASE (CK)2019-11-11 12:29:00 Test Item Value Reference Range Interpretation Comments CREATINE KINASE TOTAL (BEAKER) (test 32 U/L 29-200 code = 380) Wildlife Refuge Manager ID - ANTONY FPOCT-GLUCOSE [id number] 12:04:00 Test Item Value Reference Range Interpretation Comments POC-GLUCOSE METER 237 mg/dL 70-110 H : [facility] (BEAKER) (test code = [facility] [place], 1538) 98939: Wildlife Refuge Manager/Techni estefani ID = [id number] for GUNNER PANDYA OBTAINED CULTURE + GRAM [id number] 10:13:00 Test Item Value Reference Range Interpretation [...] No organisms seen (BEAKER) (test code = 364254) BASIC METABOLIC [id number] 08:46:00 Test Item Value Reference Range Interpretation [...] S NOT APPLICABLE FOR DIALYSIS PATIEN TS. Wildlife Refuge Manager ID - ANTONY [id number] 08:33:00 Test Item Value Reference Range Interpretation Comments MAGNESIUM (BEAKER) (test code = 2.1 mg/dL 1.6-2.6 627) Wildlife Refuge Manager ID - ANTONY FPOCT-GLUCOSE [id number] 08:11:00 Test Item Value Reference Range Interpretation Comments POC-GLUCOSE METER 177 mg/dL 70-110 H : TESTED A T [facility] 6720 (BEAKER) (test code = [place] [place], 1538) 43842: Wildlife Refuge Manager/Techni estefani ID = [id number] for GUNNER PANDYA CALCIUM, [id number] 07:08:00 Test Item Value Reference Range Interpretation Comments CALCIUM IONIZED (BEAKER) (test 1.01 mmol/L 1.12-1.27 L code = 698) PH, BLOOD (BEAKER) (test code = 7.46 1810) CBC W/PLT COUNT & AUTO [id number] 06:12:00 Test Item Value Reference Range Interpretation [...] PERCENT (BEAKER) (test code = 2801) BLOOD [id number] 06:00:00 Test Item Value Reference Range Interpretation Comments CULTURE (BEAKER) (test No growth in 5 days code = 1095) BLOOD [id number] 00:00:00 Test Item Value Reference Range Interpretation Comments CULTURE (BEAKER) (test No growth in 5 days code = 1095) POCT-GLUCOSE [id number] 20:39:00 Test Item Value Reference Range Interpretation Comments POC-GLUCOSE METER 187 mg/dL 70-110 H : TESTED A T [facility] 6720 (BEAKER) (test code = [facility], 1538) 09445: Wildlife Refuge Manager/Techni estefani ID = [id number] for SJ HERBERT POCT-GLUCOSE [id number] 12:11:00 Test Item Value Reference Range Interpretation Comments POC-GLUCOSE METER 239 mg/dL 70-110 H : TESTED A T [facility] 6720 (BEAKER) (test code = [facility], 1538) 23627: Wildlife Refuge Manager/Techni estefani ID = [id number] for JACOB LYLES BASIC METABOLIC [id number] 09:32:00 Test Item Value Reference Range Interpretation [...] S NOT APPLICABLE FOR DIALYSIS PATIEN TS. Wildlife Refuge Manager ID - DANITZA [id number] 09:15:00 Test Item Value Reference Range Interpretation Comments MAGNESIUM (BEAKER) (test code = 2.3 mg/dL 1.6-2.6 627) Wildlife Refuge Manager ID - DANITZA LPOCT-GLUCOSE [id number] 08:14:00 Test Item Value Reference Range Interpretation Comments POC-GLUCOSE METER 173 mg/dL 70-110 H : TESTED A T [facility] 6720 (BEAKER) (test code = [facility], 1538) 48730: Wildlife Refuge Manager/Techni estefani ID = [id number] for JACOB LYLES CALCIUM, [id number] 07:23:00 Test Item Value Reference Range Interpretation Comments CALCIUM IONIZED (BEAKER) (test 1.02 mmol/L 1.12-1.27 L code = 698) PH, BLOOD (BEAKER) (test code = 7.39 1810) CBC W/PLT COUNT & AUTO [id number] 06:22:00 Test Item Value Reference Range Interpretation [...] (BEAKER) (test code = 2801) VANCOMYCIN LEVEL, [id number] 06:07:00 Test Item Value Reference Range Interpretation Comments VANCOMYCIN RANDOM (BEAKER) (test 29.4 ug/mL code = 523) Reference Range: No NormalsOperator ID - PIAYA LPOCT-GLUCOSE [id number] 21:26:00 Test Item Value Reference Range Interpretation Comments POC-GLUCOSE METER 250 mg/dL 70-110 H : TESTED A T [facility] 6720 ([facility]) (test code = [facility], [facility]) 74347: Wildlife Refuge Manager/Techni estefani ID = [id number] for UL LATTIL, SJ POCT-GLUCOSE [id number] 17:14:00 Test Item Value Reference Range Interpretation Comments POC-GLUCOSE METER 283 mg/dL 70-110 H : TESTED A T [facility] 6720 ([facility]) (test code = [facility], [facility]) 58932: Wildlife Refuge Manager/Techni estefani ID = [id number] for FA TY, GUNNER POCT-GLUCOSE [id number] 12:13:00 Test Item Value Reference Range Interpretation Comments POC-GLUCOSE METER 233 mg/dL 70-110 H : [facility] 67[facility] (test code = [facility], 1538) 67019: Wildlife Refuge Manager/Techni estefani ID = [id number] for FA ITH, GUNNER SPIN/CONCENTRATION [id number] 10:35:00 Test Item Value Reference Range Interpretation Comments CONCENTRATION CHARGED (BEAKER) (test Done code = 2657) POCT-GLUCOSE [id number] 08:01:00 Test Item Value Reference Range Interpretation Comments POC-GLUCOSE METER 195 mg/dL 70-110 H : TESTED A T [facility] 6720 ([facility]) (test code = [facility], [facility]) 08308: Wildlife Refuge Manager/Techni estefani ID = [id number] for GUNNER PANDYA BASIC METABOLIC [id number] 06:24:00 Test Item Value Reference Range Interpretation [...] S NOT APPLICABLE FOR DIALYSIS PATIEN TS. Wildlife Refuge Manager ID - [id number] 06:07:00 Test Item Value Reference Range Interpretation Comments PHOSPHORUS (BEAKER) (test code = 5.2 mg/dL 2.3-4.7 H 604) Wildlife Refuge Manager ID - [id number] 06:07:00 Test Item Value Reference Range Interpretation Comments MAGNESIUM (BEAKER) (test code = 2.1 mg/dL 1.6-2.6 627) Wildlife Refuge Manager ID - EDASICBC W/PLT COUNT & AUTO [id number] 06:02:00 Test Item Value Reference Range Interpretation [...] PERCENT (BEAKER) (test code = 2801) CALCIUM, [id number] 05:45:00 Test Item Value Reference Range Interpretation Comments CALCIUM IONIZED (BEAKER) (test 0.97 mmol/L 1.12-1.27 L code = 698) PH, BLOOD (BEAKER) (test code = 7.43 1810) POCT-GLUCOSE [id number] 21:43:00 Test Item Value Reference Range Interpretation Comments POC-GLUCOSE METER 343 mg/dL 70-110 H : TESTED A T [facility] 6720 (BEAKER) (test code = [facility], 1538) 76182: Wildlife Refuge Manager/Techni estefani ID = [id number] for TIMA CHÁVEZ RAD, FOOT, 2 VIEWS, [id number] 21:02:00Reason for exam:->post op revision fo TMA, [...] amputationof the right foot.. Signed: Francisco Early MDReport Verified Date/Time: 11/08/2019 21:02:38 Reading Location: [address] Transitional Reading Room POCT-GLUCOSE [id number] 17:48:00 Test Item Value Reference Range Interpretation Comments POC-GLUCOSE METER 135 mg/dL 70-110 H : TESTED A T [facility] 6720 (BEAKER) (test code = [facility], 153) 09127: Wildlife Refuge Manager/Techni estefani ID = [id number] for MOISESJACOB POCT-GLUCOSE [id number] 16:57:00 Test Item Value Reference Range Interpretation Comments POC-GLUCOSE METER 130 mg/dL 70-110 H : TESTED A T [facility] 6720 (BEAKER) (test code = [facility], 1538) 89661: Wildlife Refuge Manager/Techni estefani ID = [id number] for NICOLE ANNA MARIEVAHIDROSE POCT-GLUCOSE [id number] 12:31:00 Test Item Value Reference Range Interpretation Comments POC-GLUCOSE METER 117 mg/dL 70-110 H : TESTED A T [facility] 6720 (BEAKER) (test code = [facility] [place], 1538) 27705: Wildlife Refuge Manager/Techni estefani ID = [id number] for Destini Contreras BASIC METABOLIC [id number] 06:39:00 Test Item Value Reference Range Interpretation [...] S NOT APPLICABLE FOR DIALYSIS PATIEN TS. Wildlife Refuge Manager ID - PIZAYRA [id number] 06:38:00 Test Item Value Reference Range Interpretation Comments PHOSPHORUS (BEAKER) (test code = 5.2 mg/dL 2.3-4.7 H 604) Wildlife Refuge Manager ID - PIZAYRA [id number] 06:38:00 Test Item Value Reference Range Interpretation Comments MAGNESIUM (BEAKER) (test code = 2.1 mg/dL 1.6-2.6 627) Wildlife Refuge Manager ID - PIZAYRA LVANCOMYCIN LEVEL, [id number] 06:18:00 Test Item Value Reference Range Interpretation Comments VANCOMYCIN RANDOM (BEAKER) (test 14.1 ug/mL code = 523) Reference Range: No NormalsOperator ID - DANITZA LCBC W/PLT COUNT & AUTO [id number] 05:32:00 Test Item Value Reference Range Interpretation [...] PERCENT (BEAKER) (test code = 2801) POCT-GLUCOSE [id number] 21:15:00 Test Item Value Reference Range Interpretation Comments POC-GLUCOSE METER 199 mg/dL 70-110 H : TESTED A T [facility] 6720 (BEAKER) (test code = [facility], 1538) 99486: Wildlife Refuge Manager/Techni estefani ID = [id number] for SA HIGGINSDEANNACRYSTAL POCT-GLUCOSE [id number] 17:20:00 Test Item Value Reference Range Interpretation Comments POC-GLUCOSE METER 214 mg/dL 70-110 H : TESTED A T [facility] 6720 (BEAKER) (test code = [facility], 1538) 85396: Wildlife Refuge Manager/Techni estefani ID = [id number] for SA NTOS, JACOB POCT-GLUCOSE [id number] 12:59:00 Test Item Value Reference Range Interpretation Comments POC-GLUCOSE METER 135 mg/dL 70-110 H : TESTED A T [facility] 6720 (BEAKER) (test code = [facility], 1538) 11196: Wildlife Refuge Manager/Techni estefani ID = [id number] for SA NTOS, JACOB POCT-GLUCOSE [id number] 06:05:00 Test Item Value Reference Range Interpretation Comments POC-GLUCOSE METER 130 mg/dL 70-110 H : TESTED A T [facility] 6720 (BEAKER) (test code = [facility], 1538) 18365: Wildlife Refuge Manager/Techni estefani ID = [id number] for ARUNA REYES SJ BASIC METABOLIC [id number] 05:38:00 Test Item Value Reference Range Interpretation [...] S NOT APPLICABLE FOR DIALYSIS PATIEN TS. Wildlife Refuge Manager ID - [id number] 05:36:00 Test Item Value Reference Range Interpretation Comments PHOSPHORUS (BEAKER) (test code = 5.1 mg/dL 2.3-4.7 H 604) Wildlife Refuge Manager ID - [id number] 05:36:00 Test Item Value Reference Range Interpretation Comments MAGNESIUM (BEAKER) (test code = 2.2 mg/dL 1.6-2.6 627) Wildlife Refuge Manager ID - EDASIPOCT-GLUCOSE [id number] 03:01:00 Test Item Value Reference Range Interpretation Comments POC-GLUCOSE METER 72 mg/dL 70-110 : TESTED A T [facility] 6720 (BEAKER) (test code = [facility], [facility]) 70389: Wildlife Refuge Manager/Techni estefani ID = [id number] for ADRY TTIL, SJ POCT-GLUCOSE [id number] 00:16:00 Test Item Value Reference Range Interpretation Comments POC-GLUCOSE METER 94 mg/dL 70-110 : TESTED A T [facility] 6720 (BEAKER) (test code = [facility], 1538) 58983: Wildlife Refuge Manager/Techni estefani ID = [id number] for ADRY TTIL, SJ POCT-GLUCOSE [id number] 23:44:00 Test Item Value Reference Range Interpretation Comments POC-GLUCOSE METER 57 mg/dL 70-110 L : TESTED A T [facility] 6720 (BEAKER) (test code = [facility], 1538) 10186: Wildlife Refuge Manager/Techni estefani ID = [id number] for ADRY TTIL, SJ POCT-GLUCOSE [id number] 21:06:00 Test Item Value Reference Range Interpretation Comments POC-GLUCOSE METER 80 mg/dL 70-110 : TESTED A T [facility] 6720 (BEAKER) (test code = [facility], 1538) 90730: Wildlife Refuge Manager/Techni estefani ID = [id number] for ADRY TTIL, SJ POCT-GLUCOSE [id number] 18:03:00 Test Item Value Reference Range Interpretation Comments POC-GLUCOSE METER 70 mg/dL 70-110 : TESTED A T [facility] 6720 (BEAKER) (test code = DASIA Garcia [facility], 1538) 11536: Wildlife Refuge Manager/Techni estefani ID = [id number] for JUAN Z, EVONNE VIAL POCT-GLUCOSE [id number] 17:47:00 Test Item Value Reference Range Interpretation Comments POC-GLUCOSE METER 45 mg/dL 70-110 L : TESTED A T [facility] 6720 (BEAKER) (test code = DASIA Garcia [facility], 1538) 77124: Wildlife Refuge Manager/Techni estefani ID = [id number] for JUAN Z, EVONNE VIAL SARS-COV2/RT-PCR ([facility])2019-11-06 13:38:00 Test Item Value Reference Range Interpretation Comments SARS-COV2/RT-PCR (test Negative Not Detected, Negative, code = 3447706) See external report for linked test SARS-COV-2 PERFORMING LAB [facility] (test code = 6874623) Negative result for this test determines that [...] of the Act.Fact Sheet for Healthcare Prov iders:https://www.[employer]/sites/default/files/product/documents/Fact_Sheet_HC _Fmweeoudc_Ztks_RYDW-MlW-3.pdfFact Sheet for Healthcare Patients:https://www.[employer]/sites/default/files/product/docume nts/Ujqp_Ofyiu_Yrcurxzr_Kquf_ZTJS-XzF-8.pdfPerforming Laboratory:[facility], [place] [id number] 12:56:00 Test Item Value Reference Range Interpretation Comments FERRITIN (BEAKER) (test code = 1137.02 ng/mL 5.00-275.00 H 361) Wildlife Refuge Manager ID - NTPIRON, TIBC, % SAT. (WITHOUT FERRITIN)2019-11-06 12:36:00 Test Item Value Reference Range Interpretation Comments IRON (BEAKER) (test code = 547) 16.0 ug/dL 40.0-160.0 L TOTAL IRON BINDING CAPACITY 139 ug/dL 250-450 L (BEAKER) (test code = 769) IRON % SATURATION (2) (BEAKER) 12 % 20-55 L (test code = 2590) Wildlife Refuge Manager ID - NTPRAD, FOOT, MIN 3 VIEWS, [id number] 11:14:00Reason for exam:->Nonhealing right TMA stump; open [...] Dense vascular calcifications are present. Signed: JR Cuate, Hali Jacob Verified Date/Time: 11/06/2019 11:14:48 ReadingLocation: [facility] Reading Room POCT-GLUCOSE [id number] 06:53:00 Test Item Value Reference Range Interpretation Comments POC-GLUCOSE METER 81 mg/dL 70-110 : TESTED A T [facility] 6720 (BEAKER) (test code = [facility], 1538) 71859: Wildlife Refuge Manager/Techni estefani ID = [id number] for ADRY LUNA, SJ [id number] 06:44:00 Test Item Value Reference Range Interpretation Comments MAGNESIUM (BEAKER) (test code = 2.3 mg/dL 1.6-2.6 627) Wildlife Refuge Manager ID - [id number] 06:44:00 Test Item Value Reference Range Interpretation Comments PHOSPHORUS (BEAKER) (test code = 5.4 mg/dL 2.3-4.7 H 604) Wildlife Refuge Manager ID - [id number] 06:36:00 Test Item Value Reference Range Interpretation Comments POC-GLUCOSE METER 61 mg/dL 70-110 L : TESTED A T [facility] 6720 (BEAKER) (test code = [facility], 1538) 30695: Wildlife Refuge Manager/Techni estefani ID = [id number] for ADRY PERLAIL, SJ CBC W/PLT COUNT & AUTO [id number] 06:23:00 Test Item Value Reference Range Interpretation [...] (BEAKER) (test code = 2801) VANCOMYCIN LEVEL, [id number] 06:22:00 Test Item Value Reference Range Interpretation Comments VANCOMYCIN RANDOM (BEAKER) (test 12.3 ug/mL code = 523) Reference Range: No NormalsOperator ID - [id number] 06:07:00 Test Item Value Reference Range Interpretation Comments POC-GLUCOSE METER 42 mg/dL 70-110 L : TESTED A T [facility] 6720 (BEAKER) (test code = [facility] [place], 1538) 79076: Wildlife Refuge Manager/Techni estefani ID = [id number] for ADRY TTIL, SJ CREATINE KINASE (CK)2019-11-06 05:29:00 Test Item Value Reference Range Interpretation Comments CREATINE KINASE TOTAL (BEAKER) (test 131 U/L 29-200 code = 380) Wildlife Refuge Manager ID - EDASICOMPREHENSIVE METABOLIC [id number] 05:29:00 Test Item Value Reference Range Interpretation [...] S NOT APPLICABLE FOR DIALYSIS PATIEN TS. Wildlife Refuge Manager ID - EDASICOMPREHENSIVE METABOLIC [id number] 23:15:00 Test Item Value Reference Range Interpretation [...] S NOT APPLICABLE FOR DIALYSIS PATIEN TS. Wildlife Refuge Manager ID - DBLACTIC ACID, [id number] 23:09:00 Test Item Value Reference Range Interpretation Comments LACTATE BLOOD VENOUS (2) (BEAKER) 1.19 mmol/L 0.50-2.20 (test code = 2872) Wildlife Refuge Manager ID - DBPOCT-GLUCOSE [id number] 22:24:00 Test Item Value Reference Range Interpretation Comments POC-GLUCOSE METER 103 mg/dL 70-110 : TESTED A T [facility] 6720 (BEAKER) (test code = [facility] [place] [place], 1538) 50411: Wildlife Refuge Manager/Techni estefani ID = [id number] for SJ HERBERT POCT-GLUCOSE [id number] 21:50:00 Test Item Value Reference Range Interpretation Comments POC-GLUCOSE METER 63 mg/dL 70-110 L : TESTED A T [facility] 6720 (BEAKER) (test code = [facility], 153) 63855: Wildlife Refuge Manager/Techni estefani ID = [id number] for ADRY TTMARLEN, SJ POCT-GLUCOSE [id number] 21:33:00 Test Item Value Reference Range Interpretation Comments POC-GLUCOSE METER 42 mg/dL 70-110 L : TESTED A T [facility] 6720 (BEAKER) (test code = [facility], 153) 09131: Wildlife Refuge Manager/Techni estefani ID = [id number] for ADRY LUNA, SJ ANAEROBIC [id number] 19:16:00 Test Item Value Reference Range Interpretation Comments CULTURE (BEAKER) A 2+ Same org anism has been (test code = 1095) isolated from culture(s) of the same body s ite and collection date . Repeat identification performed only after cons ultation with the [facility] microbiology laboratory.Refe r to previous cultur e of* - Cutibacterium a cnes ANAEROBIC [id number] 19:13:00 Test Item Value Reference Range Interpretation Comments CULTURE (BEAKER) (test A 2+ Cu tibacterium acnes code = 1095) POCT-GLUCOSE [id number] 11:08:00 Test Item Value Reference Range Interpretation Comments POC-GLUCOSE METER 136 mg/dL 70-110 H : TESTED A T [facility] 6720 (BEAKER) (test code = [facility], 153) 24692: Wildlife Refuge Manager/Techni estefani ID = [id number] for YUNIOR SIMS POCT-GLUCOSE [id number] 07:51:00 Test Item Value Reference Range Interpretation Comments POC-GLUCOSE METER 89 mg/dL 70-110 : TESTED A T [facility] 6720 (BEAKER) (test code = [facility], 153) 13883: Wildlife Refuge Manager/Techni estefani ID = [id number] for YUNIOR JOHNSTON POCT-GLUCOSE [id number] 21:07:00 Test Item Value Reference Range Interpretation Comments POC-GLUCOSE METER 145 mg/dL 70-110 H : TESTED A T [facility] 6720 (BEAKER) (test code = [facility], 153) 22758: Wildlife Refuge Manager/Techni estefani ID = [id number] for AN RON BAIRD POCT-GLUCOSE [id number] 14:59:00 Test Item Value Reference Range Interpretation Comments POC-GLUCOSE METER 152 mg/dL 70-110 H : TESTED A T [facility] 6720 (BEAKER) (test code = [facility] [place], 1538) 96526: Wildlife Refuge Manager/Techni estefani ID = [id number] for Mary Lou Bartholomew BASIC METABOLIC [id number] 10:10:00 Test Item Value Reference Range Interpretation [...] S NOT APPLICABLE FOR DIALYSIS PATIEN TS. Wildlife Refuge Manager ID - EDASISURGICALLY OBTAINED CULTURE + GRAM [id number] 09:54:00 Test Item Value Reference Range Interpretation [...] RESULT (BEAKER) negative rods (test code = 248734) GRAM STAIN <1+ gram RESULT (BEAKER) positive cocci (test code = in pairs 724391) 1+ Skin floraSURGICALLY OBTAINED CULTURE + GRAM [id number] 09:49:00 Test Item Value Reference Interpretation Comments [...] gram negative (BEAKER) (test code = rods 407269) GRAM STAIN RESULT <1+ gram positive (BEAKER) (test code = rods 621570) GRAM STAIN RESULT 2+ gram positive (BEAKER) (test code = cocci in pairs 296283) GRAM STAIN RESULT 1+ gram positive (BEAKER) (test code = cocci in clusters 808322) GRAM STAIN RESULT 1+ yeast (BEAKER) (test code = 393834) 3+ Skin lake consisting of Coagulase Negative Staphylococcus and Diphtheroid species.POCT-GLUCOSE [id number] 08:04:00 Test Item Value Reference Range Interpretation Comments POC-GLUCOSE METER 92 mg/dL 70-110 : TESTED A T [facility] 6720 (BEAKER) (test code = [facility], 1538) 51151: Wildlife Refuge Manager/Techni estefani ID = [id number] for Will Phil nicholas POCT-GLUCOSE [id number] 21:49:00 Test Item Value Reference Range Interpretation Comments POC-GLUCOSE METER 155 mg/dL 70-110 H : TESTED A T [facility] 6720 (BEAKER) (test code = [facility], 1538) 41038: Wildlife Refuge Manager/Techni estefani ID = [id number] for AN RON BAIRD POCT-GLUCOSE [id number] 18:15:00 Test Item Value Reference Range Interpretation Comments POC-GLUCOSE METER 160 mg/dL 70-110 H : TESTED A T [facility] 6720 (BEAKER) (test code = [facility], [facility]) 23799: Wildlife Refuge Manager/Techni estefani ID = [id number] for Celi Jesus POCT-GLUCOSE [id number] 14:24:00 Test Item Value Reference Range Interpretation Comments POC-GLUCOSE METER 182 mg/dL 70-110 H : TESTED A T [facility] 6720 (BEAKER) (test code = [facility], 1538) 97016: Wildlife Refuge Manager/Techni estefani ID = [id number] for Celi Jesus POCT-GLUCOSE [id number] 09:44:00 Test Item Value Reference Range Interpretation Comments POC-GLUCOSE METER 146 mg/dL 70-110 H : TESTED A T [facility] 6720 (BEAKER) (test code = [facility], [facility]) 20084: Wildlife Refuge Manager/Techni estefani ID = [id number] for Celi Jesus BASIC METABOLIC [id number] 07:20:00 Test Item Value Reference Range Interpretation [...] S NOT APPLICABLE FOR DIALYSIS PATIEN TS. Wildlife Refuge Manager ID - PIAYA LCBC W/PLT COUNT & AUTO [id number] 05:47:00 Test Item Value Reference Range Interpretation [...] PERCENT (BEAKER) (test code = 2801) POCT-GLUCOSE [id number] 05:39:00 Test Item Value Reference Range Interpretation Comments POC-GLUCOSE METER 200 mg/dL 70-110 H : TESTED A T [facility] 6720 (BEAKER) (test code = [facility], 153) 10521: Wildlife Refuge Manager/Techni estefani ID = [id number] for CHRIS MAJANO POCT-GLUCOSE [id number] 05:35:00 Test Item Value Reference Range Interpretation Comments POC-GLUCOSE METER 120 mg/dL 70-110 H : TESTED A T [facility] 6720 (BEAKER) (test code = [facility], 153) 27909: Wildlife Refuge Manager/Techni estefani ID = [id number] for EVONNE RUBY VIAL POCT-GLUCOSE [id number] 05:25:00 Test Item Value Reference Range Interpretation Comments POC-GLUCOSE METER 126 mg/dL 70-110 H : TESTED A T [facility] 6720 (BEAKER) (test code = [facility], 153) 42815: Wildlife Refuge Manager/Techni estefani ID = [id number] for Celi Jesus POCT-GLUCOSE [id number] 05:19:00 Test Item Value Reference Range Interpretation Comments POC-GLUCOSE METER 103 mg/dL 70-110 : TESTED A T [facility] 6720 (BEAKER) (test code = [facility], 153) 88011: Wildlife Refuge Manager/Techni estefani ID = [id number] for Celi Jesus HEPATITIS B SURFACE [id number] 11:26:00 Test Item Value Reference Range Interpretation Comments HEPATITIS B SURFACE ANTIGEN (2) Nonreactive Nonreactive (AKER) (test code = 2585) Specimen is considered negative for HBsAg.POCT-GLUCOSE [id number] 21:38:00 Test Item Value Reference Range Interpretation Comments POC-GLUCOSE METER 170 mg/dL 70-110 H : TESTED A T [facility] 6720 (BEAKER) (test code = [facility], 153) 93109: Wildlife Refuge Manager/Techni estefani ID = [id number] for AN RON BAIRD POCT-GLUCOSE [id number] 17:00:00 Test Item Value Reference Range Interpretation Comments POC-GLUCOSE METER 150 mg/dL 70-110 H : TESTED A T [facility] 6720 (BEAKER) (test code = [facility], 1538) 10014: Wildlife Refuge Manager/Techni estefani ID = [id number] for Katie Medrano POCT-GLUCOSE [id number] 08:37:00 Test Item Value Reference Range Interpretation Comments POC-GLUCOSE METER 105 mg/dL 70-110 : TESTED A T [facility] 6720 (BEAKER) (test code = [facility], 1538) 58146: Wildlife Refuge Manager/Techni estefani ID = [id number] for Stephan Medranoessa POCT-GLUCOSE [id number] 17:56:00 Test Item Value Reference Range Interpretation Comments POC-GLUCOSE METER 96 mg/dL 70-110 : TESTED A T [facility] 6720 (BEAKER) (test code = [facility], 1538) 95950: Wildlife Refuge Manager/Techni estefani ID = [id number] for COLEEN LEWIS ROSE BLOOD GAS, [id number] 17:17:00 Test Item Value Reference Range Interpretation [...] code = 1819) 90.0 % SODIUM NA-STAT [id number] 17:17:00 Test Item Value Reference Range Interpretation Comments SODIUM (BEAKER) (test code = 381) 134 meq/L 136-145 L HGB/HCT (H&H) - STAT [id number] 17:17:00 Test Item Value Reference Range Interpretation Comments HEMOGLOBIN (BEAKER) (test code = 11.4 g/dL 13.0-16.8 L 410) HEMATOCRIT (BEAKER) (test code = 34.0 % 40.0-50.0 L 411) CALCIUM, [id number] 17:17:00 Test Item Value Reference Range Interpretation Comments CALCIUM IONIZED (BEAKER) (test 1.22 mmol/L 1.12-1.27 code = 698) PH, BLOOD (BEAKER) (test code = 7.30 1810) GLUCOSE-STAT [id number] 17:16:00 Test Item Value Reference Range Interpretation Comments GLUCOSE RANDOM (BEAKER) (test code = 92 mg/dL 70-110 652) POTASSIUM-STAT [id number] 17:16:00 Test Item Value Reference Range Interpretation Comments POTASSIUM (BEAKER) (test code = 4.3 meq/L 3.6-5.5 379) CALCIUM, [id number] 15:59:00 Test Item Value Reference Range Interpretation Comments CALCIUM IONIZED (BEAKER) (test 1.07 mmol/L 1.12-1.27 L code = 698) PH, BLOOD (BEAKER) (test code = 7.48 1810) BLOOD GAS, [id number] 15:59:00 Test Item Value Reference Range Interpretation [...] code = 1819) 50.0 % SODIUM NA-STAT [id number] 15:59:00 Test Item Value Reference Range Interpretation Comments SODIUM (BEAKER) (test code = 381) 133 meq/L 136-145 L HGB/HCT (H&H) - STAT [id number] 15:59:00 Test Item Value Reference Range Interpretation Comments HEMOGLOBIN (BEAKER) (test code = 10.8 g/dL 13.0-16.8 L 410) HEMATOCRIT (BEAKER) (test code = 32.0 % 40.0-50.0 L 411) GLUCOSE-STAT [id number] 15:58:00 Test Item Value Reference Range Interpretation Comments GLUCOSE RANDOM (BEAKER) (test code 101 mg/dL 70-110 = 652) POTASSIUM-STAT [id number] 15:58:00 Test Item Value Reference Range Interpretation Comments POTASSIUM (BEAKER) (test code = 4.1 meq/L 3.6-5.5 379) CALCIUM, [id number] 15:12:00 Test Item Value Reference Range Interpretation Comments CALCIUM IONIZED (BEAKER) (test 1.07 mmol/L 1.12-1.27 L code = 698) PH, BLOOD (BEAKER) (test code = 7.48 1810) BLOOD GAS, [id number] 15:12:00 Test Item Value Reference Range Interpretation [...] code = 1819) 50.0 % SODIUM NA-STAT [id number] 15:12:00 Test Item Value Reference Range Interpretation Comments SODIUM (BEAKER) (test code = 381) 134 meq/L 136-145 L GLUCOSE-STAT [id number] 15:12:00 Test Item Value Reference Range Interpretation Comments GLUCOSE RANDOM (BEAKER) (test code = 64 mg/dL 70-110 L 652) HGB/HCT (H&H) - STAT [id number] 15:12:00 Test Item Value Reference Range Interpretation Comments HEMOGLOBIN (BEAKER) (test code = 10.9 g/dL 13.0-16.8 L 410) HEMATOCRIT (BEAKER) (test code = 32.0 % 40.0-50.0 L 411) POTASSIUM-STAT [id number] 15:10:00 Test Item Value Reference Range Interpretation Comments POTASSIUM (BEAKER) (test code = 4.2 meq/L 3.6-5.5 379) SARS-COV2/RT-PCR ([facility])2019-10-18 09:21:00 Test Item Value Reference Range Interpretation Comments SARS-COV2/RT-PCR (test code Negative Not Detected, Negative, = 0725165) See external report for linked test SARS-COV-2 PERFORMING LAB [facility] (test code = 4838615) Negative results do not preclude SARS-CoV-2 infection [...] of the Act.Fact Sheet for Healthcare Pro viders:https://www.eventuosity.com/Documents/Xpert%20Xpress%20SARS%20CoV-2/Fact%20Sh eets/3023802%88QUWY-DGV-6%20HEALTHCARE%20PROVIDERS%20FACT%20SHEET.pdfFact Sheet for Healthcare Patients:https://www.[employer].com/Documents/Xpert%20Xpress%20SARS%20CoV-2/Fact%20Sheets/302380%20SARS-COV -2%20PATIENT%20FACT%20SHEET.pdfPerforming Laboratory:[facility], [place] [address]XSZ AND CREATININE [id number] 08:45:00 Test Item Value Reference Range Interpretation Comments BLOOD UREA NITROGEN 58 mg/dL 7-21 H (BEAKER) (test code = 354) CREATININE (BEAKER) 7.72 mg/dL 0.57-1.25 H (test code = 358) BUN/CREAT RATIO 8 Unable to ca lculate (BEAKER) (test code due to n on-numeric = [id number]) results EGFR (BEAKER) (test 7 mL/min/1.73 ESTIMAT ED GFR IS code = 1092) sq m NOT ACCURATE CREATININE CLEARANCE IN PREDICTING GLOMERULAR FILTRATION RATE . ESTIMATED GFR I S NOT APPLICABLE FOR DIALYSIS PATIEN TS. Wildlife Refuge Manager ID - [id number] 08:43:00 Test Item Value Reference Range Interpretation Comments SODIUM (BEAKER) (test code = 381) 137 meq/L 136-145 POTASSIUM (BEAKER) (test code = 5.1 meq/L 3.5-5.1 379) CHLORIDE (BEAKER) (test code = 382) 100 meq/L 98-107 CO2 (BEAKER) (test code = 355) 23 meq/L 22-29 Wildlife Refuge Manager ID - [id number] 08:43:00 Test Item Value Reference Range Interpretation Comments GLUCOSE RANDOM (BEAKER) (test code 157 mg/dL 70-105 H = 652) Wildlife Refuge Manager ID - [id number] 08:16:00 Test Item Value Reference Range Interpretation Comments HEMOGLOBIN (BEAKER) (test code = 11.1 GM/DL 13.7-17.5 L 410) Wildlife Refuge Manager ID - 6000PLATELET [id number] 08:16:00 Test Item Value Reference Range Interpretation Comments PLATELET COUNT (BEAKER) (test 259 K/CU MM 150-450 code = 756) Wildlife Refuge Manager ID - 6000POCT-GLUCOSE [id number] 06:26:00 Test Item Value Reference Range Interpretation Comments POC-GLUCOSE METER 129 mg/dL 70-110 H : TESTED A T [facility] 6720 (BEAKER) (test code [facility], = 1538) 62765: Wildlife Refuge Manager/Techni estefani ID = [id number] for JORD AN, LACRYSTAL BUN AND CREATININE [id number] 10:25:00 Test Item Value Reference Range Interpretation [...] S NOT APPLICABLE FOR DIALYSIS PATIEN TS. Wildlife Refuge Manager ID - [id number] 10:23:00 Test Item Value Reference Range Interpretation Comments SODIUM (BEAKER) (test code = 381) 140 meq/L 136-145 POTASSIUM (BEAKER) (test code = 4.5 meq/L 3.5-5.1 379) CHLORIDE (BEAKER) (test code = 382) 101 meq/L 98-107 CO2 (BEAKER) (test code = 355) 26 meq/L 22-29 Wildlife Refuge Manager ID - [id number] 10:23:00 Test Item Value Reference Range Interpretation Comments GLUCOSE RANDOM (BEAKER) (test code 157 mg/dL 70-105 H = 652) Wildlife Refuge Manager ID - [id number] 10:11:00 Test Item Value Reference Range Interpretation Comments HEMOGLOBIN (BEAKER) (test code = 12.2 GM/DL 13.7-17.5 L 410) Wildlife Refuge Manager ID - [id number] CULTURE + SMEAR (NON-SPUTUM)2019-08-01 12:08:00 Test Item Value Reference Range Interpretation Comments CULTURE (BEAKER) (test No acid-fast bacilli code = 1095) isolated in 42 days AFB SMEAR (BEAKER) No acid fast bacilli (test code = 994) seen FUNGUS CULTURE + [id number] 17:59:00 Test Item Value Reference Range Interpretation Comments CULTURE (BEAKER) (test No fungus isolated in code = 1095) 28 days FUNGUS SMEAR (BEAKER) No fungal elements seen (test code = 1406) POCT-GLUCOSE [id number] 12:17:00 Test Item Value Reference Range Interpretation Comments POC-GLUCOSE METER 159 mg/dL 70-110 H : TESTED A T [facility] 6720 (BEAKER) (test code = [place] [facility], 1538) 63971: Wildlife Refuge Manager/Techni estefani ID = [id number] for BLESSING TUTTLE POCT-GLUCOSE [id number] 08:03:00 Test Item Value Reference Range Interpretation Comments POC-GLUCOSE METER 119 mg/dL 70-110 H : TESTED A T [facility] 6720 (BEAKER) (test code = [employer] [place], 1538) 89770: Wildlife Refuge Manager/Techni estefani ID = [id number] for Izaiah Barber BASIC METABOLIC [id number] 05:28:00 Test Item Value Reference Range Interpretation [...] S NOT APPLICABLE FOR DIALYSIS PATIEN TS. Wildlife Refuge Manager ID - JAQUELINE [id number] 05:26:00 Test Item Value Reference Range Interpretation Comments PHOSPHORUS (BEAKER) (test code = 6.1 mg/dL 2.3-4.7 H 604) Wildlife Refuge Manager ID - JAQUELINE [id number] 05:26:00 Test Item Value Reference Range Interpretation Comments MAGNESIUM (BEAKER) (test code = 2.5 mg/dL 1.6-2.6 627) Wildlife Refuge Manager ID - JAQUELINE MCBC W/PLT COUNT & AUTO [id number] 05:12:00 Test Item Value Reference Range Interpretation [...] PERCENT (BEAKER) (test code = 2801) POCT-GLUCOSE [id number] 21:05:00 Test Item Value Reference Range Interpretation Comments POC-GLUCOSE METER 250 mg/dL 70-110 H : TESTED A T [facility] 6720 (BEAKER) (test code = [facility], 153) 80153: Wildlife Refuge Manager/Techni estefani ID = [id number] for RO AMALIA, SERENA POCT-GLUCOSE [id number] 16:53:00 Test Item Value Reference Range Interpretation Comments POC-GLUCOSE METER 217 mg/dL 70-110 H : TESTED A T [facility] 6720 (BEAKER) (test code = [facility], 153) 07089: Wildlife Refuge Manager/Techni estefani ID = [id number] for HU NTER, HIWITHA POCT-GLUCOSE [id number] 11:50:00 Test Item Value Reference Range Interpretation Comments POC-GLUCOSE METER 208 mg/dL 70-110 H : TESTED A T [facility] 6720 (BEAKER) (test code = [facility], 153) 00453: Wildlife Refuge Manager/Techni estefani ID = [id number] for HU NTER, HIWITHA ANAEROBIC [id number] 10:57:00 Test Item Value Reference Range Interpretation Comments CULTURE (BEAKER) (test code A 4+ Prevotella bivia = 1095) POCT-GLUCOSE [id number] 07:24:00 Test Item Value Reference Range Interpretation Comments POC-GLUCOSE METER 231 mg/dL 70-110 H : TESTED A T [facility] 6720 (BEAKER) (test code = [facility] [place], 1538) 83158: Wildlife Refuge Manager/Techni estefani ID = [id number] for ZOILA SILVA BASIC METABOLIC [id number] 04:18:00 Test Item Value Reference Range Interpretation [...] S NOT APPLICABLE FOR DIALYSIS PATIEN TS. Wildlife Refuge Manager ID - BASSME [id number] 04:17:00 Test Item Value Reference Range Interpretation Comments PHOSPHORUS (BEAKER) (test code = 5.1 mg/dL 2.3-4.7 H 604) Wildlife Refuge Manager ID - BASSEM [id number] 04:17:00 Test Item Value Reference Range Interpretation Comments MAGNESIUM (BEAKER) (test code = 2.4 mg/dL 1.6-2.6 627) Wildlife Refuge Manager ID - BASSEM WCBC W/PLT COUNT & AUTO [id number] 04:17:00 Test Item Value Reference Range Interpretation [...] PERCENT (BEAKER) (test code = 2801) POCT-GLUCOSE [id number] 00:03:00 Test Item Value Reference Range Interpretation Comments POC-GLUCOSE METER 245 mg/dL 70-110 H : TESTED A T [facility] 6720 (BEAKER) (test code = [facility] [place], 1538) 90572: Wildlife Refuge Manager/Techni estefani ID = [id number] for FRANCK SKELTON POCT-GLUCOSE [id number] 21:18:00 Test Item Value Reference Range Interpretation Comments POC-GLUCOSE METER 252 mg/dL 70-110 H : TESTED A T [facility] 6720 (BEAKER) (test code = [facility], [facility]) 62487: Wildlife Refuge Manager/Techni estefani ID = [id number] for DA KAVYA SAM POCT-GLUCOSE [id number] 16:53:00 Test Item Value Reference Range Interpretation Comments POC-GLUCOSE METER 175 mg/dL 70-110 H : TESTED A T [facility] 6720 (BEAKER) (test code = [facility], [facility]) 76282: Wildlife Refuge Manager/Techni estefani ID = [id number] for Do minguez, Isaías POCT-GLUCOSE [id number] 13:58:00 Test Item Value Reference Range Interpretation Comments POC-GLUCOSE METER 191 mg/dL 70-110 H : TESTED A T [facility] 6720 (BEAKER) (test code = [facility], [facility]) 16533: Wildlife Refuge Manager/Techni estefani ID = [id number] for Do minguez, Isaías POCT-GLUCOSE [id number] 11:18:00 Test Item Value Reference Range Interpretation Comments POC-GLUCOSE METER 88 mg/dL 70-110 : TESTED A T [facility] 6720 (BEAKER) (test code = [facility], 1538) 05371: Wildlife Refuge Manager/Techni estefani ID = [id number] for CORNELIUS SANDY POCT-GLUCOSE [id number] 07:59:00 Test Item Value Reference Range Interpretation Comments POC-GLUCOSE METER 112 mg/dL 70-110 H : TESTED A T [facility] 6720 (BEAKER) (test code = [facility], 1538) 57957: Wildlife Refuge Manager/Techni estefani ID = [id number] for CORNELIUS MAO BASIC METABOLIC [id number] 07:35:00 Test Item Value Reference Range Interpretation [...] S NOT APPLICABLE FOR DIALYSIS PATIEN TS. Wildlife Refuge Manager ID - DANITZA [id number] 07:27:00 Test Item Value Reference Range Interpretation Comments PHOSPHORUS (BEAKER) (test code = 7.1 mg/dL 2.3-4.7 H 604) Wildlife Refuge Manager ID - DANITZA [id number] 07:27:00 Test Item Value Reference Range Interpretation Comments MAGNESIUM (BEAKER) (test code = 2.5 mg/dL 1.6-2.6 627) Wildlife Refuge Manager ID - GARYZAYRA LCBC W/PLT COUNT & AUTO [id number] 06:36:00 Test Item Value Reference Range Interpretation [...] PERCENT (BEAKER) (test code = 2801) POCT-GLUCOSE [id number] 21:42:00 Test Item Value Reference Range Interpretation Comments POC-GLUCOSE METER 171 mg/dL 70-110 H : TESTED A T [facility] 6720 (BEAKER) (test code = [facility], 1538) 96738: Wildlife Refuge Manager/Techni estefani ID = [id number] for DA KEIRY SAMO POCT-GLUCOSE [id number] 16:53:00 Test Item Value Reference Range Interpretation Comments POC-GLUCOSE METER 219 mg/dL 70-110 H : TESTED A T [facility] 6720 (BEAKER) (test code = [facility], 1538) 71386: Wildlife Refuge Manager/Techni estefani ID = [id number] for OR DALE URRUTIA POCT-GLUCOSE [id number] 12:15:00 Test Item Value Reference Range Interpretation Comments POC-GLUCOSE METER 181 mg/dL 70-110 H : TESTED A T [facility] 6720 (BEAKER) (test code = [facility], 1538) 82000: Wildlife Refuge Manager/Techni estefani ID = [id number] for OR DALE URRUTIA POCT-GLUCOSE [id number] 08:04:00 Test Item Value Reference Range Interpretation Comments POC-GLUCOSE METER 125 mg/dL 70-110 H : TESTED A T [facility] 6720 (BEAKER) (test code = [facility], 1538) 58166: Wildlife Refuge Manager/Techni estefani ID = [id number] for OR PHEY, DALE BASIC METABOLIC [id number] 05:56:00 Test Item Value Reference Range Interpretation [...] S NOT APPLICABLE FOR DIALYSIS PATIEN TS. Wildlife Refuge Manager ID - PIAYA [id number] 05:16:00 Test Item Value Reference Range Interpretation Comments PHOSPHORUS (BEAKER) (test code = 5.7 mg/dL 2.3-4.7 H 604) Wildlife Refuge Manager ID - PIAYA [id number] 05:16:00 Test Item Value Reference Range Interpretation Comments MAGNESIUM (BEAKER) (test code = 2.4 mg/dL 1.6-2.6 627) Wildlife Refuge Manager ID - PIAYA LCBC W/PLT COUNT & AUTO [id number] 05:04:00 Test Item Value Reference Range Interpretation [...] PERCENT (BEAKER) (test code = 2801) POCT-GLUCOSE [id number] 21:56:00 Test Item Value Reference Range Interpretation Comments POC-GLUCOSE METER 182 mg/dL 70-110 H : TESTED A T [facility] 6720 (BEAKER) (test code = [facility], 1538) [id number]: Wildlife Refuge Manager/Techni estefani ID = [id number] for Hi ll, Cynthia POCT-GLUCOSE [id number] 17:09:00 Test Item Value Reference Range Interpretation Comments POC-GLUCOSE METER 260 mg/dL 70-110 H : TESTED A T [facility] 6720 (BEAKER) (test code = [facility], 1538) [id number]: Wildlife Refuge Manager/Techni estefani ID = [id number] for OR DAEL URRUTIA POCT-GLUCOSE [id number] 12:02:00 Test Item Value Reference Range Interpretation Comments POC-GLUCOSE METER 244 mg/dL 70-110 H : TESTED A T [facility] 6720 (BEAKER) (test code = [facility], 1538) [id number]: Wildlife Refuge Manager/Techni estefani ID = [id number] for OR DALE URRUTIA BASIC METABOLIC [id number] 08:22:00 Test Item Value Reference Range Interpretation [...] S NOT APPLICABLE FOR DIALYSIS PATIEN TS. Wildlife Refuge Manager ID - [id number] 07:57:00 Test Item Value Reference Range Interpretation Comments PHOSPHORUS (BEAKER) (test code = 5.4 mg/dL 2.3-4.7 H 604) Wildlife Refuge Manager ID - [id number] 07:57:00 Test Item Value Reference Range Interpretation Comments MAGNESIUM (BEAKER) (test code = 2.3 mg/dL 1.6-2.6 627) Wildlife Refuge Manager ID - LMPOCT-GLUCOSE [id number] 07:55:00 Test Item Value Reference Range Interpretation Comments POC-GLUCOSE METER 154 mg/dL 70-110 H : TESTED A T [facility] (BEAKER) (test code = DASIA Garcia [facility], 1538) 15491: Wildlife Refuge Manager/Techni estefani ID = [id number] for OR DALE URRUTIA CBC W/PLT COUNT & AUTO [id number] 06:10:00 Test Item Value Reference Range Interpretation [...] (BEAKER) (test code = 2801) VANCOMYCIN LEVEL, [id number] 06:06:00 Test Item Value Reference Range Interpretation Comments VANCOMYCIN RANDOM (BEAKER) (test 15.8 ug/mL code = 523) Reference Range: No NormalsOperator ID - LMPOCT-GLUCOSE [id number] 21:02:00 Test Item Value Reference Range Interpretation Comments POC-GLUCOSE METER 231 mg/dL 70-110 H : TESTED A T [facility] 6720 (BEAKER) (test code = [facility], 153) 47209: Wildlife Refuge Manager/Techni estefani ID = [id number] for PE WESTLEY RUIZ POCT-GLUCOSE [id number] 17:06:00 Test Item Value Reference Range Interpretation Comments POC-GLUCOSE METER 227 mg/dL 70-110 H : TESTED A T [facility] 6720 (BEAKER) (test code = [facility], 1538) 40181: Wildlife Refuge Manager/Techni estefani ID = [id number] for OR PHEY, DALE POCT-GLUCOSE [id number] 12:13:00 Test Item Value Reference Range Interpretation Comments POC-GLUCOSE METER 147 mg/dL 70-110 H : TESTED A T [facility] 6720 (BEAKER) (test code = DASIA Garcia [facility], 1538) 22618: Wildlife Refuge Manager/Techni estefani ID = [id number] for DALE ORR POCT-GLUCOSE [id number] 11:39:00 Test Item Value Reference Range Interpretation Comments POC-GLUCOSE METER 138 mg/dL 70-110 H : TESTED A T [facility] 6720 (BEAKER) (test code = DASIA Garcia [facility], 1538) 73848: Wildlife Refuge Manager/Techni estefani ID = [id number] for Izaiah Barber TISSUE [id number] 09:01:00Surgical Pathology Report Case: [id number] Authorizing Provider: Star Cloud DPM Collected: 06/19/2019 11:18 AM Ordering Location: [facility] PERI[facility]IVE Received: 06/19/2019 11:51 AM SERVICES Pathologist: Jonathan Hutchison MD Specimen: Foot, Right, right forefoot PART A RIGHT FOOT, TRANSMETATARSAL AMPUTATION:GANGRENOUS NECROSIS OF SKIN AND SOFT TISSUE.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 Signing Pathologist Direct Phone Line: [phone] signed by Jonathan Hutchison MD on 06/22/2019 at 9:01 [id number], [id number] diagnosis: Gangrene, nonhealing wound of right heelA. Right footReceived in formalinlabeled with the patient's name, accession number and [...] All three digits display gardner-yellow thickened nails. Director Of Land sectionsare submitted as follows:Section code: A1, skin and soft tissue margin en faceA2, previous site of amputationA3, skin lesion and underlying affected bone following decalcificationA4-A5, bone margin en face following decalcificationPA/pl PERFORMED.[facility], Department of Pathology, [address] [place] [address], [facility], [facility] of [facility], [address] [place] [address] 85[address], PuaodmK[facility], Department of Pathology, [address] [place] [address] 48[address], WMQB-GLUCOSE [id number] 08:12:00 Test Item Value Reference Range Interpretation Comments POC-GLUCOSE METER 123 mg/dL 70-110 H : TESTED A T [facility] 6720 (BEAKER) (test code = DASIA Garcia [facility], 1538) 40652: Wildlife Refuge Manager/Techni estefani ID = [id number] for Sa arabella Weller Izaiah Isael BASIC METABOLIC [id number] 06:52:00 Test Item Value Reference Range Interpretation [...] S NOT APPLICABLE FOR DIALYSIS PATIEN TS. Wildlife Refuge Manager ID - BASSEM [id number] 06:51:00 Test Item Value Reference Range Interpretation Comments PHOSPHORUS (BEAKER) (test code = 6.3 mg/dL 2.3-4.7 H 604) Wildlife Refuge Manager ID - BASSEM [id number] 06:51:00 Test Item Value Reference Range Interpretation Comments MAGNESIUM (BEAKER) (test code = 2.5 mg/dL 1.6-2.6 627) Wildlife Refuge Manager ID - BASSEM WCBC W/PLT COUNT & AUTO [id number] 06:32:00 Test Item Value Reference Range Interpretation [...] (BEAKER) (test code = 2801) VANCOMYCIN LEVEL, [id number] 06:10:00 Test Item Value Reference Range Interpretation Comments VANCOMYCIN RANDOM (BEAKER) (test 19.5 ug/mL code = 523) Reference Range: No NormalsOperator ID - DBPOCT-GLUCOSE [id number] 21:39:00 Test Item Value Reference Range Interpretation Comments POC-GLUCOSE METER 212 mg/dL 70-110 H : TESTED A T [facility] 6720 (BEAKER) (test code = [facility], 153) 50907: Wildlife Refuge Manager/Techni estefani ID = [id number] for EA GLIN, CARMELALISANGITAIA POCT-GLUCOSE [id number] 17:03:00 Test Item Value Reference Range Interpretation Comments POC-GLUCOSE METER 192 mg/dL 70-110 H : TESTED A T [facility] 6720 (BEAKER) (test code = [facility], 1538) 05951: Wildlife Refuge Manager/Techni estefani ID = [id number] for ENOCH NTER, HIWITHA POCT-GLUCOSE [id number] 12:20:00 Test Item Value Reference Range Interpretation Comments POC-GLUCOSE METER 191 mg/dL 70-110 H : TESTED A T [facility] 6720 (BEAKER) (test code = [facility], 153) 54483: Wildlife Refuge Manager/Techni estefani ID = [id number] for CLAUDIA FONTANA SURGICALLY OBTAINED CULTURE + GRAM [id number] 11:27:00 Test Item Value Reference Range Interpretation Comments CULTURE (BEAKER) (test code No growth = 1095) GRAM STAIN RESULT (BEAKER) 3+ WBCs (test code = 1123) GRAM STAIN RESULT (BEAKER) No organisms seen (test code = 91905) SPIN/CONCENTRATION [id number] 08:46:00 Test Item Value Reference Range Interpretation Comments CONCENTRATION CHARGED (BEAKER) (test Done code = 2657) POCT-GLUCOSE [id number] 08:19:00 Test Item Value Reference Range Interpretation Comments POC-GLUCOSE METER 134 mg/dL 70-110 H : TESTED A T [facility] 6720 (BEAKER) (test code = DASIA [place], 1538) 11967: Wildlife Refuge Manager/Techni estefani ID = [id number] for HU NTER, HIWITHA BASIC METABOLIC [id number] 04:44:00 Test Item Value Reference Range Interpretation [...] S NOT APPLICABLE FOR DIALYSIS PATIEN TS. Wildlife Refuge Manager ID - JAQUELINE [id number] 03:56:00 Test Item Value Reference Range Interpretation Comments PHOSPHORUS (BEAKER) (test code = 6.2 mg/dL 2.3-4.7 H 604) Wildlife Refuge Manager ID - JAQUELINE [id number] 03:56:00 Test Item Value Reference Range Interpretation Comments MAGNESIUM (BEAKER) (test code = 2.3 mg/dL 1.6-2.6 627) Wildlife Refuge Manager ID - JAQUELINE MCBC W/PLT COUNT & AUTO [id number] 03:44:00 Test Item Value Reference Range Interpretation [...] PERCENT (BEAKER) (test code = 2801) POCT-GLUCOSE [id number] 20:47:00 Test Item Value Reference Range Interpretation Comments POC-GLUCOSE METER 234 mg/dL 70-110 H : TESTED A T [facility] 6720 (BEAKER) (test code = [facility], 1538) 21464: Wildlife Refuge Manager/Techni estefani ID = [id number] for EA GLIEARNEST MejiaIA POCT-GLUCOSE [id number] 17:12:00 Test Item Value Reference Range Interpretation Comments POC-GLUCOSE METER 192 mg/dL 70-110 H : TESTED A T [facility] 6720 (BEAKER) (test code = [facility], 1538) 08221: Wildlife Refuge Manager/Techni estefani ID = [id number] for HU NTER, HIWITHA POCT-GLUCOSE [id number] 12:35:00 Test Item Value Reference Range Interpretation Comments POC-GLUCOSE METER 138 mg/dL 70-110 H : TESTED A T [facility] 6720 (BEAKER) (test code = [facility], [facility]) 75273: Wildlife Refuge Manager/Techni estefani ID = [id number] for HU NTER, HIWITHA POCT-GLUCOSE [id number] 10:12:00 Test Item Value Reference Range Interpretation Comments POC-GLUCOSE METER 101 mg/dL 70-110 : TESTED A T [facility] 6720 (BEAKER) (test code = [facility], 1538) 31749: Wildlife Refuge Manager/Techni estefani ID = [id number] for Tu Bassem moreau Hernandez POCT-GLUCOSE [id number] 08:51:00 Test Item Value Reference Range Interpretation Comments POC-GLUCOSE METER 96 mg/dL 70-110 : TESTED A T [facility] 6720 (BEAKER) (test code = [facility], 1538) 65849: Wildlife Refuge Manager/Techni estefani ID = [id number] for Tupa s, Bassem Hernandez BASIC METABOLIC [id number] 05:04:00 Test Item Value Reference Range Interpretation [...] S NOT APPLICABLE FOR DIALYSIS PATIEN TS. Wildlife Refuge Manager ID - DANITZA LVANCOMYCIN LEVEL, [id number] 04:56:00 Test Item Value Reference Range Interpretation Comments VANCOMYCIN RANDOM (BEAKER) (test 18.7 ug/mL code = 523) Reference Range: No NormalsOperator ID - DANITZA [id number] 04:49:00 Test Item Value Reference Range Interpretation Comments PHOSPHORUS (BEAKER) (test code = 8.4 mg/dL 2.3-4.7 H 604) Wildlife Refuge Manager ID - DANITZA [id number] 04:49:00 Test Item Value Reference Range Interpretation Comments MAGNESIUM (BEAKER) (test code = 2.5 mg/dL 1.6-2.6 627) Wildlife Refuge Manager ID - DANITZA LCBC W/PLT COUNT & AUTO [id number] 04:22:00 Test Item Value Reference Range Interpretation [...] code = 2801) RAD, FOOT, 2 VIEWS, [id number] 22:40:00Reason for exam:->post op TMA rightFINAL REPORT [...] Alex MDReport Verified Date/Time: 06/19/2019 22:40:02 POCT-GLUCOSE [id number] 21:19:00 Test Item Value Reference Range Interpretation Comments POC-GLUCOSE METER 221 mg/dL 70-110 H : TESTED A T [facility] 6720 (BEAKER) (test code = [facility], 1538) 47578: Wildlife Refuge Manager/Techni estefani ID = [id number] for DA KEIRY SAMO POCT-GLUCOSE [id number] 21:06:00 Test Item Value Reference Range Interpretation Comments POC-GLUCOSE METER 214 mg/dL 70-110 H : TESTED A T [facility] 6720 (BEAKER) (test code = [facility], 1538) 71912: Wildlife Refuge Manager/Techni estefani ID = [id number] for BRANDI HN, BLESSING POCT-GLUCOSE [id number] 21:05:00 Test Item Value Reference Range Interpretation Comments POC-GLUCOSE METER 131 mg/dL 70-110 H : TESTED A T [facility] 6720 (BEAKER) (test code = [facility], 1538) 77264: Wildlife Refuge Manager/Techni estefani ID = [id number] for BRANDI HN, BLESSING POCT-GLUCOSE [id number] 21:05:00 Test Item Value Reference Range Interpretation Comments POC-GLUCOSE METER 131 mg/dL 70-110 H : TESTED A T [facility] 6720 (BEAKER) (test code = [facility], 1538) 98307: Wildlife Refuge Manager/Techni esetfani ID = [id number] for BRANDI HN, BLESSING POCT-GLUCOSE [id number] 12:01:00 Test Item Value Reference Range Interpretation Comments POC-GLUCOSE METER 135 mg/dL 70-110 H : TESTED A T [facility] 6720 (BEAKER) (test code = [facility], 1538) 82898: Wildlife Refuge Manager/Techni estefani ID = [id number] for SM ITH, GABRIELA POCT-GLUCOSE [id number] 09:10:00 Test Item Value Reference Range Interpretation Comments POC-GLUCOSE METER 200 mg/dL 70-110 H : TESTED A T [facility] 6720 (BEAKER) (test code = DASIA Garcia [place], 1538) 36692: Wildlife Refuge Manager/Techni estefani ID = [id number] for FRANCK SKELTON CBC W/PLT COUNT & AUTO [id number] 05:34:00 Test Item Value Reference Range Interpretation [...] (BEAKER) (test code = 2801) BASIC METABOLIC [id number] 05:28:00 Test Item Value Reference Range Interpretation [...] S NOT APPLICABLE FOR DIALYSIS PATIEN TS. Wildlife Refuge Manager ID - BASSEM [id number] 05:27:00 Test Item Value Reference Range Interpretation Comments PHOSPHORUS (BEAKER) (test code = 6.7 mg/dL 2.3-4.7 H 604) Wildlife Refuge Manager ID - BASSEM [id number] 05:27:00 Test Item Value Reference Range Interpretation Comments MAGNESIUM (BEAKER) (test code = 2.3 mg/dL 1.6-2.6 627) Wildlife Refuge Manager ID - BASSEM WVANCOMYCIN LEVEL, [id number] 05:25:00 Test Item Value Reference Range Interpretation Comments VANCOMYCIN RANDOM (BEAKER) (test 21.5 ug/mL code = 523) Reference Range: No NormalsOperator ID - BASSEM WPOCT-GLUCOSE [id number] 17:28:00 Test Item Value Reference Range Interpretation Comments POC-GLUCOSE METER 173 mg/dL 70-110 H : TESTED A T [facility] 6720 (BEAKER) (test code = [facility], 1538) 92352: Wildlife Refuge Manager/Techni estefani ID = [id number] for OR PHEY, DALE POCT-GLUCOSE [id number] 14:19:00 Test Item Value Reference Range Interpretation Comments POC-GLUCOSE METER 133 mg/dL 70-110 H : TESTED A T [facility] 6720 (BEAKER) (test code = [facility], 1538) 50955: Wildlife Refuge Manager/Techni estefani ID = [id number] for OR PHEY, DALE POCT-GLUCOSE [id number] 10:35:00 Test Item Value Reference Range Interpretation Comments POC-GLUCOSE METER 119 mg/dL 70-110 H : TESTED A T [facility] 6720 (BEAKER) (test code = [facility], 1538) 96414: Wildlife Refuge Manager/Techni estefani ID = [id number] for Po Sonya torres CBC W/PLT COUNT & AUTO [id number] 05:31:00 Test Item Value Reference Range Interpretation [...] (BEAKER) (test code = 2801) BASIC METABOLIC [id number] 05:17:00 Test Item Value Reference Range Interpretation [...] S NOT APPLICABLE FOR DIALYSIS PATIEN TS. Wildlife Refuge Manager ID - JAQUELINE [id number] 05:16:00 Test Item Value Reference Range Interpretation Comments PHOSPHORUS (BEAKER) (test code = 7.5 mg/dL 2.3-4.7 H 604) Wildlife Refuge Manager ID - JAQUELINE [id number] 05:16:00 Test Item Value Reference Range Interpretation Comments MAGNESIUM (BEAKER) (test code = 2.4 mg/dL 1.6-2.6 627) Wildlife Refuge Manager ID - JAQUELINE MVANCOMYCIN LEVEL, [id number] 05:04:00 Test Item Value Reference Range Interpretation Comments VANCOMYCIN TROUGH (BEAKER) (test 25.9 ug/mL 10.0-20.0 H code = 522) Wildlife Refuge Manager ID - JAQUELINE MPOCT-GLUCOSE [id number] 21:00:00 Test Item Value Reference Range Interpretation Comments POC-GLUCOSE METER 148 mg/dL 70-110 H : TESTED A T [facility] 6720 (BEAKER) (test code = [facility], 153) 39098: Wildlife Refuge Manager/Techni estefani ID = [id number] for RO AMALIAKAPILSERENA POCT-GLUCOSE [id number] 19:14:00 Test Item Value Reference Range Interpretation Comments POC-GLUCOSE METER 137 mg/dL 70-110 H : TESTED A T [facility] 6720 (BEAKER) (test code = [facility], 1538) 08147: Wildlife Refuge Manager/Techni estefani ID = [id number] for BR MICKY, AMANDA POCT-GLUCOSE [id number] 17:46:00 Test Item Value Reference Range Interpretation Comments POC-GLUCOSE METER 205 mg/dL 70-110 H : TESTED A T [facility] 6720 (BEAKER) (test code = [facility], 153) 40283: Wildlife Refuge Manager/Techni estefani ID = [id number] for BR ITTEN, AMANDA POCT-GLUCOSE [id number] 17:05:00 Test Item Value Reference Range Interpretation Comments POC-GLUCOSE METER 197 mg/dL 70-110 H : TESTED A T [facility] (BEAKER) (test code = [facility] [place], 1538) 32708: Wildlife Refuge Manager/Techni estefani ID = [id number] for AMANDA BETTS BASIC METABOLIC [id number] 05:57:00 Test Item Value Reference Range Interpretation [...] S NOT APPLICABLE FOR DIALYSIS PATIEN TS. Wildlife Refuge Manager ID - DANITZA [id number] 05:54:00 Test Item Value Reference Range Interpretation Comments PHOSPHORUS (BEAKER) (test code = 6.2 mg/dL 2.3-4.7 H 604) Wildlife Refuge Manager ID - DANITZA [id number] 05:54:00 Test Item Value Reference Range Interpretation Comments MAGNESIUM (BEAKER) (test code = 2.2 mg/dL 1.6-2.6 627) Wildlife Refuge Manager ID - DANITAZ LCBC W/PLT COUNT & AUTO [id number] 05:44:00 Test Item Value Reference Range Interpretation [...] PERCENT (BEAKER) (test code = 2801) POCT-GLUCOSE [id number] 21:37:00 Test Item Value Reference Range Interpretation Comments POC-GLUCOSE METER 262 mg/dL 70-110 H : TESTED A T [facility] 6720 (BEAKER) (test code = [facility], 1538) 50768: Wildlife Refuge Manager/Techni estefani ID = [id number] for KAVYA WHITMORE POCT-GLUCOSE [id number] 16:44:00 Test Item Value Reference Range Interpretation Comments POC-GLUCOSE METER 203 mg/dL 70-110 H : TESTED A T [facility] 6720 (BEAKER) (test code = [facility], 1538) 93048: Wildlife Refuge Manager/Techni estefani ID = [id number] for NATE MONROY POCT-GLUCOSE [id number] 12:05:00 Test Item Value Reference Range Interpretation Comments POC-GLUCOSE METER 233 mg/dL 70-110 H : TESTED A T [facility] 6720 (BEAKER) (test code = [facility], 1538) 51265: Wildlife Refuge Manager/Techni estefani ID = [id number] for HU NTER, HIWITHA POCT-GLUCOSE [id number] 08:18:00 Test Item Value Reference Range Interpretation Comments POC-GLUCOSE METER 146 mg/dL 70-110 H : TESTED A T [facility] 6720 (BEAKER) (test code = [facility], 1538) 04510: Wildlife Refuge Manager/Techni estefani ID = [id number] for HU NTER, HIWITHA CBC W/PLT COUNT & AUTO [id number] 07:32:00 Test Item Value Reference Range Interpretation [...] CONCENTRATION Adequate (CELLAVISION)(BEAKER) (test code = 3438) Wildlife Refuge Manager SAVANNA Cronin OverholtUser comments: Slide comments:BASIC METABOLIC [...] S NOT APPLICABLE FOR DIALYSIS PATIEN TS. Wildlife Refuge Manager ID - JAQUELINE [id number] 06:29:00 Test Item Value Reference Range Interpretation Comments PHOSPHORUS (BEAKER) (test code = 4.9 mg/dL 2.3-4.7 H 604) Wildlife Refuge Manager ID - JAQUELINE [id number] 06:29:00 Test Item Value Reference Range Interpretation Comments MAGNESIUM (BEAKER) (test code = 2.2 mg/dL 1.6-2.6 627) Wildlife Refuge Manager ID - JAQUELINE MVANCOMYCIN LEVEL, [id number] 06:23:00 Test Item Value Reference Range Interpretation Comments VANCOMYCIN RANDOM (BEAKER) (test 31.1 ug/mL code = 523) Reference Range: No NormalsOperator ID - JAQUELINE MPOCT-GLUCOSE [id number] 21:18:00 Test Item Value Reference Range Interpretation Comments POC-GLUCOSE METER 233 mg/dL 70-110 H : TESTED A T [facility] 6720 (BEAKER) (test code = [facility], 1538) 50914: Wildlife Refuge Manager/Techni estefani ID = [id number] for DA VISDARNELLKAVYA POCT-GLUCOSE [id number] 17:24:00 Test Item Value Reference Range Interpretation Comments POC-GLUCOSE METER 252 mg/dL 70-110 H : TESTED A T [facility] 6720 (BEAKER) (test code = [facility], 1538) 31275: Wildlife Refuge Manager/Techni estefani ID = [id number] for HU NTER, HIWITHA POCT-GLUCOSE [id number] 17:24:00 Test Item Value Reference Range Interpretation Comments POC-GLUCOSE METER 124 mg/dL 70-110 H : TESTED A T [facility] (BEAKER) (test code = [facility], 1538) 63293: Wildlife Refuge Manager/Techni estefani ID = [id number] for HU NTER, HIWITHA [id number] 12:41:00 Test Item Value Reference Range Interpretation Comments ACTIVATED CLOTTING TIME 241 sec : 74 -137 seconds, (BEAKER) (test code = Amadeo ne: TESTED AT 441) [facility], 770 30: Wildlife Refuge Manager/Techni estefani ID = [id number] for CRYSTAL SHAH HEPATITIS B SURFACE [id number] 04:57:00 Test Item Value Reference Range Interpretation Comments HEPATITIS B SURFACE ANTIGEN (2) Nonreactive Nonreactive (BEAKER) (test code = 2585) Wildlife Refuge Manager ID - LMBASIC METABOLIC [id number] 04:38:00 Test Item Value Reference Range Interpretation [...] S NOT APPLICABLE FOR DIALYSIS PATIEN TS. Wildlife Refuge Manager ID - BASSEM [id number] 04:37:00 Test Item Value Reference Range Interpretation Comments PHOSPHORUS (BEAKER) (test code = 5.6 mg/dL 2.3-4.7 H 604) Wildlife Refuge Manager ID - BASSEM [id number] 04:37:00 Test Item Value Reference Range Interpretation Comments MAGNESIUM (BEAKER) (test code = 2.2 mg/dL 1.6-2.6 627) Wildlife Refuge Manager ID - BASSEM WCBC W/PLT COUNT & AUTO [id number] 04:34:00 Test Item Value Reference Range Interpretation [...] PERCENT (BEAKER) (test code = 2801) POCT-GLUCOSE [id number] 22:31:00 Test Item Value Reference Range Interpretation Comments POC-GLUCOSE METER 203 mg/dL 70-110 H : TESTED A T [facility] 6720 (BEAKER) (test code [facility], = 153) 82151: Wildlife Refuge Manager/Techni estefani ID = [id number] for Egbe , Emma POCT-GLUCOSE [id number] 21:30:00 Test Item Value Reference Range Interpretation Comments POC-GLUCOSE METER 205 mg/dL 70-110 H : TESTED A T [facility] 6720 (BEAKER) (test code = [facility], 1538) 12410: Wildlife Refuge Manager/Techni estefani ID = [id number] for FI TE, ARLEN POCT-GLUCOSE [id number] 16:56:00 Test Item Value Reference Range Interpretation Comments POC-GLUCOSE METER 210 mg/dL 70-110 H : TESTED A T [facility] 6720 (BEAKER) (test code = [facility], 1538) 49658: Wildlife Refuge Manager/Techni estefani ID = [id number] for MATEUS ROBLES, FOOT, MIN 3 VIEWS, [id number] 15:36:00Reason for exam:->Right foot gangrene, 2nd toe [...] Verified Date/Time: 0 06/14/2019 15:36:18 Reading Location: [facility] C0X Ortho Consult Reading Room BASIC METABOLIC [id number] 15:34:00 Test Item Value Reference Range Interpretation [...] S NOT APPLICABLE FOR DIALYSIS PATIEN TS. Wildlife Refuge Manager ID - [id number] 15:33:00 Test Item Value Reference Range Interpretation Comments PHOSPHORUS (BEAKER) (test code = 4.8 mg/dL 2.3-4.7 H 604) Wildlife Refuge Manager ID - [id number] 15:33:00 Test Item Value Reference Range Interpretation Comments MAGNESIUM (BEAKER) (test code = 2.2 mg/dL 1.6-2.6 627) Wildlife Refuge Manager ID - BSCBC W/PLT COUNT & AUTO [id number] 15:20:00 Test Item Value Reference Range Interpretation [...] PERCENT (BEAKER) (test code = 2801) POCT-GLUCOSE [id number] 12:22:00 Test Item Value Reference Range Interpretation Comments POC-GLUCOSE METER 242 mg/dL 70-110 H : TESTED A T [facility] 6720 (Access Mobile) (test code = [facility], 1538) 15212: Wildlife Refuge Manager/Techni estefani ID = [id number] for MATEUS ROBLES POCT-GLUCOSE [id number] 12:16:00 Test Item Value Reference Range Interpretation Comments POC-GLUCOSE METER 206 mg/dL 70-110 H : TESTED A T [facility] 6720 ([facility] Mobile) (test code = [facility], 1538) 40067: Wildlife Refuge Manager/Techni estefani ID = [id number] for MATEUS ROBLES
[2022-04-08] MEDS ORDERED: HYDRALAZINE HCL 20 MG/ML VIAL ONE (22:09)
[2022-04-08 22:40] LABS: Hematocrit 34.9 % (39.6-49.0); Lymphocytes % 23.7 % (15.3-44.8); MCV 93.8 fL (80-100); RBC Red Blood Cell Count 3.72 M/uL (4.33-5.43)
[2022-04-08 22:58] LABS: Albumin 3.4 g/dL (3.4-5.0); Bilirubin Total 0.3 mg/dL (0.2-1.0); Protein, Total 7.9 g/dL (6.4-8.2); Troponin High Sensitivity 48.3 pg/mL (<58.9)
--- NOTE | 2022-04-08 23:09 | ER ---
Nurse's Notes [facility] Name: Dayton Grijalva Age: 61 yrs Sex: Male : 1960 Arrival Date: 04/08/2022 Time: 21:06 Bed 7 Private MD: Tito Duval E Diagnosis: Essential (primary) hypertension Presentation: 04/08 21:33 Chief complaint: Patient states: I was at dialysis today and they told me my blood kd3 pressure was too high. It was in the 200's. My blood pressure has been going up and down recently. The last time i checked was in the 130's but dialysis said it was high. Coronavirus screen: Vaccine status: Patient reports receiving the 2nd dose of the covid vaccine. Ebola Screen: No symptoms or risks identified at this time. Initial Sepsis Screen: Does the patient meet any 2 criteria? No. Patient's initial sepsis screen is negative. Does the patient have a suspected source of infection? No. Patient's initial sepsis screen is negative. Risk Assessment: Do you want to hurt yourself or someone else? Patient reports no desire to harm self or others. Onset of symptoms was April 08, 2022. 21:33 Method Of Arrival: Wheelchair kd3 21:33 Acuity: SAMARA 3 kd3 Triage Assessment: 21:35 General: Appears in no apparent distress. Behavior is calm, cooperative. Pain: Denies kd3 pain. Historical: - Allergies: 21:35 No Known Allergies; kd3 - Immunization history:: Adult Immunizations up to date. - Social history:: Smoking status: Patient denies any tobacco usage or history of. - Family history:: not pertinent. Screenin:25 [facility] ED Fall Risk Assessment (Adult) History of falling in the last 3 months, ll3 including since admission No falls in past 3 months (0 pts) Confusion or Disorientation No (0 pts) Intoxicated or Sedated No (0 pts) Impaired Gait Yes (1 pt) Mobility Assist Device Used Yes (1 pt) Altered Elimination No (0 pt) Score/Fall Risk Level 0 - 2 = Low Risk Oriented to surroundings, Maintained a safe environment, Educated pt \T\ family on fall prevention, incl call for assistance when getting out of bed. Abuse screen: Denies threats or abuse. Denies injuries from another. Nutritional screening: No deficits noted. Tuberculosis screening: No symptoms or risk factors identified. Vital Signs: 21:30 Pulse 40; Resp 19; Temp 98.2; Pulse Ox 99% ; Weight 102 kg; Height 6 ft. 1 in. (185.42 kd3 cm); Pain 0/10; 21:35 BP 205 / 92; kd3 23:00 BP 192 / 77; Pulse 87; Resp 18; Pulse Ox 95% ; pf1 23:26 BP 185 / 77; Pulse 83; Resp 14; Pulse Ox 96% on R/A; ll3 21:30 Body Mass Index 29.67 (102.00 kg, 185.42 cm) kd3 ED Course: 21:06 Patient arrived in ED. as 21:08 Tito Duval MD is Private Physician. as 21:35 Triage completed. kd3 21:35 Arm band placed on right wrist. kd3 21:42 Nas Kim MD is Attending Physician. rt 22:21 Initial lab(s) drawn, by tx, sent to lab. Inserted saline lock: 22 gauge in right ll3 antecubital area, using aseptic technique. Blood collected. 23:08 Tito Duval MD is Referral Physician. rt 23:25 Patient has correct armband on for positive identification. Bed in low position. Call ll3 light in reach. Side rails up X 1. Adult w/ patient. 23:25 No provider procedures requiring assistance completed. IV discontinued, intact, ll3 bleeding controlled, No redness/swelling at site. Pressure dressing applied. Administered Medications: 22:20 Drug: hydrALAZINE 10 mg Route: IVP; Site: right antecubital; ll3 23:26 Follow up: BP 185 / 77; Pulse 83 bpm; Resp 14 bpm; Pulse Ox 96% RA; Response: No ll3 adverse reaction; Blood pressure is lowered Medication: 23:26 VIS not applicable for this client. ll3 Outcome: 23:08 Discharge ordered by . rt 23:25 Discharged to home ambulatory, with family. ll3 23:25 Condition: stable 23:25 Discharge instructions given to patient, family, Instructed on discharge instructions, follow up and referral plans. Demonstrated understanding of instructions, follow-up care. 23:27 Patient left the ED. ll3 Signatures: Anaid Shah Lynsea, RN RN 3 Cate Hernandez RN RN 3 Nas Kim MD MD rt Divine stout, RN RN pf1
--- NOTE | 2022-04-08 23:09 | EDPHYS ---
Physician Documentation [facility] Name: Dayton Grijalva Age: 61 yrs Sex: Male : 1960 Arrival Date: 04/08/2022 Time: 21:06 Bed 7 Private MD: Tito Duval E ED Physician Nas Kim HPI: 04/08 23:19 This 61 yrs old Male presents to ER via Wheelchair with complaints of High rt Blood Pressure. 23:19 Patient presents to the ED with hypertension. He is a dialysis patient, he was told rt that he had high blood pressure at dialysis yesterday but he finished dialysis without issue. He noted that his blood pressure was about 250 systolic today. He took his antihypertensives before coming. He denies any symptoms at this time. Symptoms are moderate in severity, no other aggravating or elevating factors.. Historical: - Allergies: 21:35 No Known Allergies; kd3 - Immunization history:: Adult Immunizations up to date. - Social history:: Smoking status: Patient denies any tobacco usage or history of. - Family history:: not pertinent. ROS: 23:19 Constitutional: Negative for fever, chills, and weight loss, Eyes: Negative for injury, rt pain, redness, and discharge, Cardiovascular: Negative for chest pain, palpitations, and edema, Respiratory: Negative for shortness of breath, cough, wheezing, and pleuritic chest pain, Abdomen/GI: Negative for abdominal pain, nausea, vomiting, diarrhea, and constipation, MS/Extremity: Negative for injury and deformity, Skin: Negative for injury, rash, and discoloration, Neuro: Negative for headache, weakness, numbness, tingling, and seizure, Psych: Negative for depression, anxiety, suicide ideation, homicidal ideation, and hallucinations. Exam: 23:19 Constitutional: This is a well developed, well nourished patient who is awake, alert, rt and in no acute distress. Head/Face: Normocephalic, atraumatic. Chest/axilla: Normal chest wall appearance and motion. Nontender with no deformity. No lesions are appreciated. Cardiovascular: Regular rate and rhythm with a normal S1 and S2. No gallops, murmurs, or rubs. Normal PMI, no JVD. No pulse deficits. Respiratory: Lungs have equal breath sounds bilaterally, clear to auscultation and percussion. No rales, rhonchi or wheezes noted. No increased work of breathing, no retractions or nasal flaring. Abdomen/GI: Soft, non-tender, with normal bowel sounds. No distension or tympany. No guarding or rebound. No evidence of tenderness throughout. Skin: Warm, dry with normal turgor. Normal color with no rashes, no lesions, and no evidence of cellulitis. MS/ Extremity: Pulses equal, no cyanosis. Neurovascular intact. Full, normal range of motion. Neuro: Awake and alert, GCS 15, oriented to person, place, time, and situation. Cranial nerves II-XII grossly intact. Motor strength 5/5 in all extremities. Sensory grossly intact. Cerebellar exam normal. Normal gait. Psych: Awake, alert, with orientation to person, place and time. Behavior, mood, and affect are within normal limits. 23:19 ECG was reviewed by the Attending Physician. rt Vital Signs: 21:30 Pulse 40; Resp 19; Temp 98.2; Pulse Ox 99% ; Weight 102 kg; Height 6 ft. 1 in. (185.42 kd3 cm); Pain 0/10; 21:35 BP 205 / 92; kd3 23:00 BP 192 / 77; Pulse 87; Resp 18; Pulse Ox 95% ; pf1 23:26 BP 185 / 77; Pulse 83; Resp 14; Pulse Ox 96% on R/A; ll3 21:30 Body Mass Index 29.67 (102.00 kg, 185.42 cm) kd3 MDM: 21:46 Patient medically screened. rt 23:19 Differential diagnosis: hypertensive crisis, essential htn. Data reviewed: vital signs, rt nurses notes, lab test result(s), EKG. I considered the following discharge prescriptions or medication management in the emergency department Medications were administered in the Emergency Department. See MAR. Test considered but Not performed: CT: No symptoms, CT scan not indicated. Care significantly affected by the following chronic conditions: Hypertension, Chronic Kidney Disease. Response to treatment: the patient's symptoms have mildly improved after treatment. 04/08 21:53 Order name: CBC with Diff; Complete Time: 23:03 rt 04/08 21:53 Order name: CMP; Complete Time: 23:03 rt 04/08 21:53 Order name: Troponin High Sensitivity; Complete Time: 23:03 rt 04/08 21:53 Order name: EKG - Nurse/Tech; Complete Time: 22:14 rt EC:19 Rate is 80 beats/min. Rhythm is regular, Normal Sinus Rhythm with No ectopy. QRS [place] rt is Normal. NM interval is normal. QRS interval is normal. QT interval is normal. No Q waves. T waves are Normal. No ST changes noted. Interpreted by me. Administered Medications: 22:20 Drug: hydrALAZINE 10 mg Route: IVP; Site: right antecubital; ll3 23:26 Follow up: BP 185 / 77; Pulse 83 bpm; Resp 14 bpm; Pulse Ox 96% RA; Response: No ll3 adverse reaction; Blood pressure is lowered Disposition Summary: 04/08/22 23:08 Discharge Ordered Location: Home rt Problem: an ongoing problem rt Symptoms: have improved rt Condition: Stable rt Diagnosis - Essential (primary) hypertension rt Followup: rt - With: Tito Duval MD - When: 2 - 3 days - Reason: Discharge Instructions: - Discharge Summary Sheet rt - Hypertension, Adult rt Forms: - Medication Reconciliation Form rt - Thank You Letter rt - Antibiotic Education rt - Prescription Opioid Use rt Signatures: Dispatcher [employer] Moe Montes RN RN ll3 Cate Hernandez RN RN kd3 Nas Kim MD MD rt
[2022-04-09 00:41] VITALS: TEMP 98.2
[2022-04-09 00:45] VITALS: BP 185/77; O2SAT 96
== END 2022-04-08 23:27 | disposition home or self-care (01) ==
LOC: ER 21:05
DX: I10 Essential (primary) hypertension (principal); Z99.2 Dependence on renal dialysis
CPT/HCPCS: 85025; 36415; 84484; 80053; 96374; 99283; J0360; 93005

== ENCOUNTER 2022-09-25 15:40 | Inpatient (IN) | payer OTHER ==
--- OUTSIDE RECORDS SUMMARY | 2022-09-25 16:11 | XMS REPORT | Continuity of Care Document ---
:1960 Author Organization [facility] t Address [address] [place] [address] [place] [id number] Care Team Providers Name Role Phone PCP, PATIENT DOES NOT HAVE A Primary Care Physician UnavailLupe Zelaya Anavella Attending Clinician Unava ilable [id number] Attending Clinician Unavailable Rose Duval Attending Clinician Unavailable STAR CLOUD Attending Clinician Unavailable MARIO DRIVER Attending Clinician Unavailable SARA MUNIZ Attending Clinician Unavailable Marj DORSEY, Olayinka Bean Attending Clinician Unavailable LYLE CANALES Attending Clinician Unavailable Oralia Valdes Attending Clinician Lyle Canales MD Attending Clinician Beak Qureshi DO Attending Clinician Tao Shepherd MD Attending Clinician DAV HERNANDEZ Attending Clinician Unavailable Sara Muniz MD Attending Clinician Eleuterio Arceo MD Attending Clinician Bal Schrader MD Attending Clinician Thomas LOGAN, Dav Attending Clinician Hermes LUU, Star Beltran Attending Clinician Carmina LOGAN, Petr Cesar Attending Clinician Pop LOGAN, Monica Attending Clinician Shashi LOGAN, Clark Chahal Attending Clinician Efraín LOGAN, Amanda Valenzuela Attending Clinician [phone] Eligio LAL, Evelyn Attending Clinician GERARDO KIRBY Attending Clinician Unavailable Natalio Mixon Chioma V Attending Clinician Unavailable HAKEEM HAGAN Attending Clinician Unavailable John Sánchze Attending Clinician Unavailable NATASHA HINES Attending Clinician Unavailable CHIOMA ALBARRAN Attending Clinician Unavailable TOMASA HAGAN Attending Clinician Unavailable WILMER HOLLOWAY Attending Clinician Unavailable ABRAHAM MALAVE Attending Clinician Unavailable Eliu, Chiomav, Anav Admitting Clinician Unavailable [id number] Admitting Clinician Unavailable STAR CLOUD Admitting Clinician [...] Policy Number Effective Date Expiration Date S colby [facility] [id number] [employer] [id number] 2020 O 00:00:00 CDC REVIEW [id number] 2019 2020 00:00:00 00:00:00 [employer] [id number] Commo n Medicare Replace [place] [address] [id number] Commo n Medicare Replace [facility] Problems Condition Condition Condition Status Onset Resolution Last Treating Co mments Source Name Details Category Date Date Treatment Clinician Date Elevated Elevated Disease Active Unive rs troponin troponin 8-15 ity of 00:00: [address] [place] Hyper[place]em Hyperkalem Disease Active M ethodi ia ia 4 st 00:00: Hospita 00 l Foot Foot Disease Active 2020-[address] [facility] infection infection 2-23 [facility] 00:00: Medical 00 Center Diabetic Diabetic Disease Recurre [facility] foot foot [facility] infection infection 00:[facility]: Medi magdaleno 00 Center Anemia due Anemia due Disease Recurre [facility] to chronic to chronic nce 7- [facility] kidney kidney 00:00: Medical disease, disease, 00 Center on chronic on chronic dialysis dialysis Cellulitis Cellulitis Disease Active [facility] High anion High anion Disease Active [facility] gap gap -13 kes metabolic metabolic 00:00: Medi magdaleno acidosis acidosis 00 Center Pressure Pressure Disease Active [facility] ulcer [facility] ulcer [facility] 3[facility]25 [facility] right right 00:00: Medical heel, heel, 00 [place] stage 4 stage 4 Status Status Disease Active [facility] post [...] 00:00: Medical 00 Center Nonhealing Nonhealing Disease Recurre [facility]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 nce 1-05 [facility] stump stump 00:00: Medical 00 Center Pressure Pressure Disease Recurre 2019-[address] [facility] injury of injury of nce 1- [facility] right right 00:00: Medical heel, heel, 00 Center stage 4 stage 4 Sepsis, Sepsis, Disease Recurre 2019-[address] [facility] due to due to nce 1- [facility] unspecifie unspecifie 00:00: Me dical d d 00 Center organism, organism, unspecifie unspecifie d whether d whether acute acute organ organ dysfunctio dysfunctio n present n present Pressure Pressure Disease Recurre 2019-[address] [facility] injury of injury of rie 03-07 ke s right right 00:00: Medical heel, heel, 00 [place] stage 4 stage 4 Osteomyeli Osteomyeli Disease Recurre 2019-[address] tis of tis of [facility] 03-07 [facility] right foot right foot 00:00: Me dical 00 [place] Amputation Amputation Disease Recurre [facility] stump stump [facility] 12-04 [facility] infection infection 00:00: [facility] 00 [place] Gangrene Gangrene Disease Recurre [facility] of right of right [facility] 11-05 [facility] foot foot 00:00: Medical 00 [place] HTN HTN Disease Active [facility] (hypertens (hypertens 8-15 [facility]i [facility] ion) ion) 00:00: Medical 00 [place] Thrombophl Thrombophl Disease Active [facility] ebitis ebitis 8-15 [facility] 00:[facility]: Medical 00 [place] Status Status Disease Recurre [facility] post post [facility] 813 [facility] transmetat transmetat 00:00: Me dical arsal arsal 00 [place]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 of foot, of foot, right right DM DM Disease Recurre [facility] (diabetes (diabetes rie 8-13 [facility] mellitus) mellitus) 00:00: [facility] type II, type II, 00 Center controlled controlled , with , with peripheral peripheral vascular vascular disorder disorder Status Status Disease Active [facility] post skin post skin 8-13 [facility] graft graft 00:00: Medical using using 00 [place] Integra Integra wound wound dressing dressing Type 2 Type [address] [facility] diabetes diabetes [facility] [address] [facility] mellitus mellitus 00:00: Medica l with with 00 Center diabetic diabetic peripheral peripheral angiopathy angiopathy and and gangrene, gangrene, with with long-term long-term current current use of use of insulin insulin PAD PAD Disease Recurre [facility] (periphera (periphera rie 4- Regi k[facility] l artery l artery 00:00: Medica l disease) disease) 00 Center Ischemia Ischemia Disease Active [facility] of foot of foot 06-13 [facility] 00:[facility]: Medical 00 Center CAD CAD Disease Active Methodi [...] CAD in Disease Active Overview: Method [place] 08[place] artery artery 00:00: g of this Hospita 00 note l might be different from the original. Added automatic ally from request for surgery [id number] ESRD on ESRD on Disease Recurre [facility] hemodialys hemodialys [facility] ESRD (end ESRD (end Disease Recurre I stage stage [facility] renal renal Medical disease) disease) Center on on dialysis dialysis [id number] End stage Problem Active Comm on renal Spirit disease - [facility] Allergies, Adverse Reactions, Alerts Allergy Allergy Status Severity Reaction(s) Onset Inactive Treating Comm ents Source Name Type Date Date Clinician NKA Allergy Active ENCC[facility] 07-13 19:49: 35 NKA Allergy Active [facility] 07-13 19:49: 35 No Known DA Active [facility] [place] [facility] 00:00: d [facility] No Known DA Active [facility] [place] [facility] 00:00: d [facility] NO KNOWN Allergy Active [facility] ALLERGIE S NO KNOWN Drug Active Univers ALLERGIE Class ity of S [facility] Family History Family Member Diagnosis Comments Start Date Stop Date Source Natural father Diabetes [facility] Natural mother Diabetes [facility] Social History Social Habit Start Date Stop Date Quantity Comments Source History SDOH [facility] Alcohol Comment Medical C enter [facility] Sexual orientation [facility] SDOH [facility] Alcohol Std Drinks Medica l Center History SDOH [facility] Alcohol Binge Medical [facility] [address] ter History of Tobacco Common Spirit - Use [facility] History of Social 2022-05-14 2022-05-[address] function 00:00:00 00:00:00 Hospital Exposure to 2021-10-09 2021-10-19 Not sure [facility] SARS-CoV-2 (event) 00:00:00 15:24:00 [facility] Alcohol intake 2021-03-12 2021-03-12 Current [facility] Sylvia es 00:00:00 00:00:00 non-drinker of Medical Ce nter alcohol (finding) Tobacco Comment 2019-09-12 2019-09-[address] [facility] 00:[facility]00 ago Medical Center History SDOH 2019-06-14 2019-06-[address] [facility] Alcohol Frequency 00:00:00 00:00:00 [facility] Tobacco use and 2018-03-08 2018-03-08 Smokeless [facility] 00:00:00 00:00:00 tobacco non-user Hospital Sex Assigned At [birth year] [facility] charless 00:00:00 00:00:00 [facility] Smoking Status Start Date Stop Date Source Tobacco smoking [facility] xa consumption unknown Medical Bran ch Ex-smoker 2018-03-08 00:00:00 2018-03-08 [facility] Medications Ordered Filled Start Stop Current Ordering Indication Dosage Frequency Signature Comments Components Source Medication Medication Date Date Medication? Clinician (SIG) Name Name No known No No known Unive rs medications 8-15 medication it y of 17:10: s [address] No known No No known Unive rs medications 8-15 medication it y of 17:10: s [address] aspirin Yes 81mg QD Take 81 mg Meth virgen (ECOTRIN) 5-[address] 81 MG 20:42: daily. Hospita enteric 25 l coated tablet hydrALAZINE Yes 25mg Q.[id number] Take 25 mg Methodi (APRESOLINE 5-01 [id number] mouth [address] [facility] ) 25 MG 20:42: 3D (three) Hospita tablet 25 times a l day. ferrous 202-0 Yes 325mg QD Take 325 Metho di sulfate 325 5-[address] (65 FE) MG 20:42: mouth Hospit a tablet 25 daily with l breakfast. NIFEdipine 2021-0 Yes 30mg QD Take 30 mg M ethodi CC (ADALAT 5-[address] CC) 30 MG 20:42: daily. Hospit a 24 hr 25 l tablet clopidogreL 2021-0 Yes 75mg QD Take 75 mg Methodi [...] tablet 25 l calcium 2021-0 Yes 1334mg Q.[id number] Take 1,334 Methodi acetate,junito 5- [id number] mg by s t sphat bind, 20:42: 3D mouth 3 Hos jerrod (PHOSLO) 25 (three) l 667 mg times a capsule day with meals. clopidogreL 2021-0 Yes 75mg QD Take 75 mg Methodi (PLAVIX) 75 5-[address] mg tablet 20:42: daily. Hospit a 25 l lisinopriL 2-0 Yes 20mg QD Take 20 mg M ethodi (PRINIVIL) 5-[address] 20 mg 20:42: daily. Hospita tablet 25 l carvediloL 2022-0 Yes 25mg Q.5D Take 25 mg M ethodi (COREG) 25 5-[address] MG tablet 20:42: (two) Hospita 25 times a l day with meals. atorvastati 0 Yes 40mg QD Take 40 mg Methodi n (LIPITOR) 5-[address] 40 mg 20:42: daily. Hospita tablet 25 l calcium 2021-0 Yes 1334mg Q.[id number] Take 1,334 Methodi acetate,junito 5-01 [id number] mg by s t sphat bind, 20:42: 3D mouth 3 Hos jerrod (PHOSLO) 25 (three) l 667 mg times a capsule day with meals. aspirin 0 Yes 81mg QD Take 81 mg Meth virgen (ECOTRIN) 5-[address] 81 MG 20:42: daily. Hospita enteric 25 l coated tablet hydrALAZINE 0 Yes 25mg Q.15108233 Take 25 mg Methodi (APRESOLINE 5- [id number] by mouth 3 st ) 25 MG 20:42: 3D (three) Hospita tablet 25 times a l day. ferrous 0 Yes 325mg QD Take 325 Metho di sulfate 325 5-[address] (65 FE) MG 20:42: mouth Hospit a tablet 25 daily with l breakfast. NIFEdipine 0 Yes 30mg QD Take 30 mg M ethodi CC (ADALAT 5-[address] CC) 30 MG 20:42: daily. Hospit a 24 hr 25 l tablet clopidogreL 0 Yes 75mg QD Take 75 mg Methodi (PLAVIX) 75 5-[address] mg tablet 20:42: daily. Hospit a 25 l lisinopriL 0 Yes 20mg QD Take 20 mg M ethodi (PRINIVIL) 5-[address] 20 mg 20:42: daily. Hospita tablet 25 l carvediloL 0 Yes 25mg Q.5D Take 25 mg M ethodi (COREG) 25 5-[address] MG tablet 20:42: (two) Hospita 25 times a l day with meals. atorvastati 2021-0 Yes 40mg QD Take 40 mg Methodi n (LIPITOR) 5-[address] 40 mg 20:42: daily. Hospita tablet 25 l calcium 2021-0 Yes 1334mg Q.[id number] Take 1,334 Methodi acetate,junito 5-01 [id number] mg by s t sphat bind, 20:42: 3D mouth 3 Hos jerrod (PHOSLO) 25 (three) l 667 mg times a capsule day with meals. aspirin 2021-0 Yes 81mg QD Take 81 mg Meth virgen (ECOTRIN) 5-[address] 81 MG 20:42: daily. Hospita enteric 25 l coated tablet hydrALAZINE 0 Yes 25mg Q.80699126 Take 25 mg Methodi (APRESOLINE - [id number] by mouth 3 st ) 25 MG [...] a 24 hr 25 l tablet clopidogreL 0 Yes 75mg QD Take 75 mg Methodi (PLAVIX) 75 5-[address] mg tablet 20:42: daily. Hospit a 25 l lisinopriL 0 Yes 20mg QD Take 20 mg M ethodi (PRINIVIL) -[address] 20 mg 20:42: daily. Hospita tablet 25 l carvediloL 0 Yes 25mg Q.5D Take 25 mg M ethodi (COREG) 25 -[address] MG tablet 20:42: (two) Hospita 25 times a l day with meals. atorvastati 0 Yes 40mg QD Take 40 mg Methodi n (LIPITOR) 5-[address] 40 mg 20:42: daily. Hospita tablet 25 l calcium 2021-0 Yes 1334mg Q.[id number] Take 1,334 Methodi acetate,junito - [id number] mg by s t sphat bind, 20:42: 3D mouth 3 Hos jerrod (PHOSLO) 25 (three) l 667 mg times a capsule day with meals. aspirin 2021-0 Yes 81mg QD Take 81 mg Meth virgen (ECOTRIN) 5-[address] 81 MG 20:42: daily. Hospita enteric 25 l coated tablet hydrALAZINE 2022-0 Yes 25mg Q.45493227 Take 25 mg Methodi (APRESOLINE 07-05 [id number] mouth [facility] ) 25 MG 20:42: 3D (three) Hospita tablet 25 times a l day. ferrous 2022-0 Yes 325mg QD Take 325 Metho di sulfate 325 5-[address] (65 FE) MG 20:42: mouth Hospit a tablet 25 daily with l breakfast. NIFEdipine 2022-0 Yes 30mg QD Take 30 mg M ethodi CC (ADALAT 5-[address] CC) 30 MG 20:42: daily. Hospit a 24 hr 25 l tablet glipiZIDE 2-0 Yes 10mg Q.5D Take 10 mg Me thodi (GLUCOTROL) 4-[address] 10 MG 20:42: (two) Hospita tablet 15 times a l day before meals. spironolact 2022-0 Yes 25mg QD Take 25 mg Methodi one 4-[address] (ALDACTONE) 20:42: daily. Hosp marco 25 MG 15 l tablet gabapentin 2-0 Yes 300mg QD Take 300 Me thodi (NEURONTIN) 4-[address] 300 mg 20:42: mouth Hospita capsule 15 daily. l glipiZIDE 2022-0 Yes 10mg Q.5D Take 10 mg Me thodi (GLUCOTROL) 4-[address] 10 MG 20:42: (two) Hospita tablet 15 times a l day before meals. spironolact 2022-0 Yes 25mg QD Take 25 mg Methodi one 4-[address] (ALDACTONE) 20:42: daily. Hosp marco 25 MG 15 l tablet gabapentin 2022-0 Yes 300mg QD Take 300 Me thodi (NEURONTIN) 4-[address] 300 mg 20:42: mouth Hospita capsule 15 daily. l glipiZIDE 2022-0 Yes 10mg Q.5D Take 10 mg Me thodi (GLUCOTROL) 4-[address] 10 MG 20:42: (two) Hospita tablet 15 times a l day before meals. spironolact 2022-0 Yes 25mg QD Take 25 mg Methodi one 4-[address] (ALDACTONE) 20:42: daily. Hosp marco 25 MG 15 l tablet gabapentin 2022-0 Yes 300mg QD Take 300 Me thodi (NEURONTIN) 4-[address] 300 mg 20:42: mouth Hospita capsule 15 daily. l glipiZIDE 2021-0 Yes 10mg Q.5D Take 10 [...] 20:42: mouth Hospita capsule 15 daily. l acetaminoph 2021-0 Yes 500mg Take [address] en 1-10 mg by [facility] (TYLENOL) 17:48: mouth Medical 500 MG 27 every 6 Center tablet (six) hours as needed for Pain. aspirin 81 2021-0 Yes 81mg QD Take [address] MG EC 1-10 by mouth [facility] tablet 17:48: daily. [address] acetaminoph 2021-0 Yes 500mg Take [address] en 1-10 mg by [facility] (TYLENOL) 17:48: mouth Medical 500 MG 27 every 6 Center tablet (six) hours as needed for Pain. aspirin 81 2-0 Yes 81mg QD Take [address] MG EC 1-10 by mouth [facility] tablet 17:48: daily. [address] acetaminoph 2-0 Yes 500mg Take [address] en 1-10 mg by [facility] (TYLENOL) 17:48: mouth Medical 500 MG 27 every 6 Center tablet (six) hours as needed for Pain. aspirin 81 2-0 Yes 81mg QD Take [address] MG EC 1-10 by mouth [facility] tablet 17:48: daily. [address] acetaminoph 2-0 Yes 500mg Take [address] en 1-10 mg by [facility] (TYLENOL) 17:48: mouth Medical 500 MG 27 every 6 Center tablet (six) hours as needed for Pain. aspirin 81 2-0 Yes 81mg QD Take [address] MG EC 1-10 by mouth [facility] tablet 17:48: daily. [address] acetaminoph 2-0 Yes 500mg Take [address] en 1-10 mg by [facility] (TYLENOL) 17:48: mouth Medical 500 MG 27 every 6 Center tablet (six) hours as needed for Pain. aspirin 81 2-0 Yes 81mg QD Take [address] MG EC 1-10 by mouth [facility] tablet 17:48: daily. [address] acetaminoph 2021-0 Yes 500mg Take [address] en 1-10 mg by [facility] (TYLENOL) 17:48: mouth Medical 500 MG 27 every 6 Center tablet (six) hours as needed for Pain. aspirin 81 2-0 Yes 81mg QD Take [address] MG EC 1-10 by mouth [facility] tablet 17:48: daily. [address] acetaminoph 2021-0 Yes 500mg Take [address] en 1-10 mg by [facility] (TYLENOL) 17:48: mouth Medical 500 MG 27 every 6 Center tablet (six) hours as needed for Pain. aspirin 81 2021-0 Yes 81mg QD Take [address] MG EC 1-10 by mouth [facility] tablet 17:48: daily. [address] acetaminoph 2021-0 Yes 500mg Take [address] en 1-10 mg by [facility] (TYLENOL) 17:48: mouth Medical 500 MG 27 every 6 Center tablet (six) hours as needed for Pain. aspirin 81 2021-0 Yes 81mg QD Take [address] MG EC 1-10 by mouth [facility] tablet 17:48: daily. [address] acetaminoph 2021-0 Yes 500mg Take [address] en 1-10 mg by [facility] (TYLENOL) 17:48: mouth Medical 500 MG 27 every 6 Center tablet (six) hours as needed for Pain. aspirin 81 2-0 Yes 81mg QD Take [address] MG EC 1-10 by mouth [facility] tablet 17:48: daily. [address] acetaminoph 2-0 Yes 500mg Take [address] en 1-10 mg by [facility] (TYLENOL) 17:48: mouth Medical 500 MG 27 every 6 Center tablet (six) hours as needed for Pain. aspirin 81 2-0 Yes 81mg QD Take [address] MG EC 1-10 by mouth [facility] tablet 17:48: daily. [address] acetaminoph 2021-0 Yes 500mg Take [address] en 1-10 mg by [facility] (TYLENOL) 17:48: mouth Medical 500 MG 27 every 6 Center tablet (six) hours as needed for Pain. aspirin 81 2021-0 Yes 81mg QD Take [address] MG EC 1-10 by mouth [facility] tablet 17:48: daily. [address] acetaminoph 2021-0 Yes 500mg Take [address] en 1-10 mg by [facility] (TYLENOL) 17:48: mouth Medical 500 MG 27 every 6 Center tablet (six) hours as needed for Pain. aspirin 81 2021-0 Yes 81mg QD Take [address] MG EC 1-10 by mouth [facility] tablet 17:48: daily. [address] acetaminoph 0 Yes 500mg Take [address] en 1-10 mg by [facility] (TYLENOL) 17:48: mouth Medical 500 MG 27 every 6 Center tablet (six) hours as needed for Pain. aspirin 81 2021-0 Yes 81mg QD Take [address] MG EC 1-10 by mouth [facility] tablet 17:48: daily. [address] acetaminoph 0 Yes 500mg Take [address] en 1-10 mg by [facility] (TYLENOL) 17:48: mouth Medical 500 MG 27 every 6 Center tablet (six) hours as needed for Pain. aspirin 81 2021-0 Yes 81mg QD Take [address] MG EC 1-10 by mouth [facility] tablet 17:48: daily. [address] NIFEdipine 2021-0 2021- No 90mg QD Take 1 [facility] [...] tablet every evening for 90 days. clopidogreL 2021-0 2021- No 75mg QD Take 1 CHI [...] mouth Center daily for 90 days. NIFEdipine 2021- No 90mg QD Take 1 [...] mouth Center daily for 90 days. NIFEdipine 2021- No 90mg QD Take 1 [...] QD Take [address] [facility] (PLAVIX) 75 03-16 04-10 tablet (75 L ukes mg tablet [...] after dialysis TUE/TUE/ I for 22 days. NIFEdipine 2020-2021- No 90mg QD Take [address] (PROCARDIA- 7-31 01-10 tablet (90 L ukes XL) 90 MG 00:00: 00:00 mg total) Me dical (OSM) 24 hr 00 :00 by mouth Cent er tablet daily. NIFEdipine 2021- No 90mg QD Take [address] (PROCARDIA- 7-31 01-10 tablet (90 L ukes XL) 90 MG 00:00: 00:00 mg total) Me dical (OSM) 24 hr 00 :00 by mouth Cent er tablet daily. sevelamer 2021- No 800mg Take [address] [facility] (RENVELA) 7-30 07-30 tablet [facility] 800 mg 00:00: 23:59 (800 mg Medical tablet 00 :00 total) by Center mouth 3 (three) times daily with meals Take 2 tablets by mouth 3 times a day with meals and 1 tablet twice a day with snacks. sevelamer 2021-0 2022- No 800mg Take [address] (RENVELA) 10-03-30 tablet [facility] 800 mg 00:00: 23:59 (800 mg Medical tablet 00 :00 total) by Center mouth 3 (three) times daily with meals Take 2 tablets by mouth 3 times a day with meals and 1 tablet twice a day with snacks. sevelamer 2020-0 2022- No 800mg Take [address] [facility] (RENVELA) 10-03-30 tablet [facility] 800 mg 00:00: 23:59 (800 mg Medical tablet 00 :00 total) by Center mouth 3 (three) times daily with meals Take 2 tablets by mouth 3 times a day with meals and 1 tablet twice a day with snacks. sevelamer 2020-0 2022- No 800mg Take [address] [facility] (RENVELA) 10-03-30 tablet [facility] 800 mg 00:00: 23:59 (800 mg Medical tablet 00 :00 total) by Center mouth 3 (three) times daily with meals Take 2 tablets by mouth 3 times a day with meals and 1 tablet twice a day with snacks. sevelamer 2020-0 2022- No 800mg Take [address] [facility] (RENVELA) 10-03-30 tablet [facility] 800 mg 00:00: 23:59 (800 mg Medical tablet 00 :00 total) by Center mouth 3 (three) times daily with meals Take 2 tablets by mouth 3 times a day with meals and 1 tablet twice a day with snacks. sevelamer 2020-0 2022- No 800mg Take [address] [facility] [address] (RENVELA) 10-03-30 tablet [facility] 800 mg 00:00: 23:59 (800 mg Medical tablet 00 :00 total) by Center mouth 3 (three) times daily with meals Take 2 tablets by mouth 3 times a day with meals and 1 tablet twice a day with snacks. sevelamer 2020-0 2022- No 800mg Take [address] [facility] (RENVELA) 10-03-30 tablet [facility] 800 mg 00:00: 23:59 (800 mg Medical tablet 00 :00 total) by Center mouth 3 (three) times daily with meals Take 2 tablets by mouth 3 times a day with meals and 1 tablet twice a day with snacks. sevelamer 2020-0 2022- No 800mg Take [address] [facility] (RENVELA) 10-03-30 tablet [facility] 800 mg 00:00: 23:59 (800 mg Medical tablet 00 :00 total) by Center mouth 3 (three) times daily with meals Take 2 tablets by mouth 3 times a day with meals and 1 tablet twice a day with snacks. sevelamer 2020-0 2- No 800mg Take [address] [facility] (RENVELA) 10-03-30 tablet [facility] 800 mg 00:00: 23:59 (800 mg Medical tablet 00 :00 total) by Center mouth 3 (three) times daily with meals Take 2 tablets by mouth 3 times a day with meals and 1 tablet twice a day with snacks. sevelamer 2020-0 2- No 800mg Take [address] [facility] (RENVELA) 10-03-30 tablet [facility] 800 mg 00:00: 23:59 (800 mg Medical tablet 00 :00 total) by Center mouth 3 (three) times daily with meals Take 2 tablets by mouth 3 times a day with meals and 1 tablet twice a day with snacks. sevelamer 2020-0 2021- No 800mg Take [address] [facility] (RENVELA) 10-03-30 tablet [facility] 800 mg 00:00: 23:59 (800 mg Medical tablet 00 :00 total) by Center mouth 3 (three) times daily with meals Take 2 tablets by mouth 3 times a day with meals and 1 tablet twice a day with snacks. sevelamer 2020-0 2021- No 800mg Take [address] [facility] (RENVELA) 10-03-30 tablet [facility] 800 mg 00:00: 23:59 (800 mg Medical tablet 00 :00 total) by Center mouth 3 (three) times daily with meals Take 2 tablets by mouth 3 times a day with meals and 1 tablet twice a day with snacks. sevelamer 2020-0 2022- No 800mg Take [address] [facility] (RENVELA) 10-03-30 tablet [facility] 800 mg 00:00: 23:59 (800 mg Medical tablet 00 :00 total) by Center mouth 3 (three) times daily with meals Take 2 tablets by mouth 3 times a day with meals and 1 tablet twice a day with snacks. sevelamer 2020-0 2022- No 800mg Take [address] [facility] (RENVELA) 10-03-30 tablet [facility] 800 mg 00:00: 23:59 (800 mg Medical tablet 00 :00 total) by Center mouth 3 (three) times daily with meals Take 2 tablets by mouth 3 times a day with meals and 1 tablet twice a day with snacks. hydrALAZINE 2020-0 2022- No 25mg Take [address] [facility] (APRESOLINE 7-30 01-10 tablet (25 L ukes ) 25 MG 00:00: 00:00 mg total) Medi magdaleno tablet 00 :00 by mouth Center every 8 (eight) hours. hydrALAZINE 2020-0 2022- No 25mg Take [address] [facility] (APRESOLINE 7-30 01-10 tablet (25 L ukes ) 25 MG 00:00: 00:00 mg total) Medi magdaleno tablet 00 :00 by mouth Center every 8 (eight) hours. folic 2020-0 Yes 1{tbl} QD Take 1 [...] Center E) 0.8 mg Tab tablet folic 2021-0 Yes 1{tbl} QD Take [address] acid-multiv 4-15 tablet by Sylvia es itamins 00:00: mouth Medical (NEPHRO-VIT 00 daily. Center E) 0.8 mg Tab tablet folic 2021-0 Yes 1{tbl} QD Take [address] acid-multiv 4-15 tablet by Sylvia es itamins 00:00: mouth Medical (NEPHRO-VIT 00 daily. Center E) 0.8 mg Tab tablet folic 2021-0 Yes 1{tbl} QD Take [address] acid-multiv 4-15 tablet by Sylvia es itamins 00:00: mouth Medical (NEPHRO-VIT 00 daily. Center E) 0.8 mg Tab tablet folic 2020-0 Yes 1{tbl} QD Take [address] [facility] acid-multiv 4-15 tablet by Sylvia es itamins 00:00: mouth Medical (NEPHRO-VIT 00 daily. Center E) 0.8 mg Tab tablet folic 1-0 Yes 1{tbl} QD Take [address] [facility] acid-multiv 4-15 tablet by Sylvia [facility] it[facility] 00:00: mouth Medical (NEPHRO-VIT 00 daily. Center E) 0.8 mg Tab tablet folic 2020-0 Yes 1{tbl} QD Take [address] [facility] acid-multiv 4-15 tablet by Sylvia [facility] it[facility] 00:00: mouth Medical (NEPHRO-VIT 00 daily. Center E) 0.8 mg Tab tablet folic 1-0 Yes 1{tbl} QD Take [address] [facility] acid-multiv 4-15 tablet by Sylvia [facility] it[facility] 00:00: mouth Medical (NEPHRO-VIT 00 daily. Center E) 0.8 mg Tab tablet folic 2020-0 Yes 1{tbl} QD Take [address] [facility] acid-multiv 4-15 tablet by Sylvia [facility] it[facility] 00:00: mouth Medical (NEPHRO-VIT 00 daily. Center E) 0.8 mg Tab tablet brimonidine 2021-0 Yes 1[drp] Q.5D Administer [facility] (ALPHAGAN) 2-[address] 0.2 % 00:00: both eyes [facility] 2 (two) l solution times a day. brimonidine 2021-0 Yes 1[drp] Q.5D Administer [facility] (ALPHAGAN) 2-05 [...] 2 (two) l solution times a day. epoetin 2019-03 Yes [id number] Inject [address] [facility] [address] fredy-epbx 1-16 mL (10,000 Luke s (RETACRIT) 00:00: Units Medica l 10,000 00 total) Center unit/mL subcutaneo Soln usly 3 injection (three) times a week at bedtime TUE/TUE/ I. epoetin 2019-03 Yes [id number] Inject [address] [facility] [address] fredy-epbx 1-16 mL (10,000 Luke s (RETACRIT) 00:00: Units Medica l 10,000 00 total) Center unit/mL subcutaneo Soln usly 3 injection (three) times a week at bedtime TUE/TUE/ I. epoetin 2019-03 Yes [id number] Inject [address] [facility] [address] fredy-epbx 1-16 mL (10,000 Luke s (RETACRIT) 00:00: Units Medica l 10,000 00 total) Center unit/mL subcutaneo Soln usly 3 injection (three) times a week at bedtime TUE/TUE/ I. epoetin 2019-03 Yes [id number] Inject [address] [facility] [address] fredy-epbx 1-16 mL (10,000 Luke s (RETACRIT) 00:00: Units Medica l 10,000 00 total) Center unit/mL subcutaneo Soln usly 3 injection (three) times a week at bedtime TUE/TUE/ I. epoetin 2019-03 Yes [id number] Inject [address] [facility] [address] [facility]y-epbx 1-16 mL (10,000 Luke s (RETACRIT) 00:00: Units Medica l 10,000 00 total) Center unit/mL subcutaneo Soln usly 3 injection (three) times a week at bedtime I. epoetin 2019-03 Yes [id number] Inject [address] [facility] [address] [facility]y-epbx 1-16 mL (10,000 Luke s (RETACRIT) 00:00: Units Medica l 10,000 00 total) Center unit/mL subcutaneo Soln usly 3 injection (three) times a week at bedtime I. epoetin 2019-03 Yes [id number] Inject [address] [facility] [address] [facility]y-epbx 1-16 mL (10,000 Luke s (RETACRIT) 00:00: Units Medica l 10,000 00 total) Center unit/mL subcutaneo Soln usly 3 injection (three) times a week at bedtime I. epoetin 2019-03 Yes [id number] Inject [address] [facility] [address] [facility]redy-epbx 1-16 mL (10,000 Luke s (RETACRIT) 00:00: Units Medica l 10,000 00 total) Center unit/mL subcutaneo Soln usly 3 injection (three) times a week at bedtime I. epoetin 2019-03 Yes [id number] Inject [address] [facility] [address] [facility]-epbx 1-16 mL (10,000 Luke s (RETACRIT) 00:00: Units Medica l 10,000 00 total) Center unit/mL subcutaneo Soln usly 3 injection (three) times a week at bedtime I. epoetin 2019-03 Yes [id number] Inject [address] [facility] [address] [facility]y-epbx 1-16 mL (10,000 Luke s (RETACRIT) 00:00: Units Medica l 10,000 00 total) Center unit/mL subcutaneo Soln usly 3 injection (three) times a week at bedtime I. epoetin 2019-03 Yes [id number] Inject [address] [facility] [facility]y-epbx 1-16 mL (10,000 Luke s (RETACRIT) 00:00: Units Medica l 10,000 00 total) Center unit/mL subcutaneo Soln usly 3 injection (three) times a week at bedtime I. epoetin 2019-03 Yes [id number] Inject [address] [facility] [address] [facility]redy-epbx 1-16 mL (10,000 Luke s (RETACRIT) 00:00: Units Medica l 10,000 00 total) Center unit/mL subcutaneo Soln usly 3 injection (three) times a week at bedtime TUE/ I. epoetin 2019-03 Yes [id number] Inject [address] [facility] [address] [facility]redy-epbx 1-16 mL (10,000 Luke s (RETACRIT) 00:00: Units Medica l 10,000 00 total) Center unit/mL subcutaneo Soln usly 3 injection (three) times a week at bedtime TUE/ I. epoetin 2019-03 Yes [id number] Inject [address] [facility] [address] [facility]y-epbx 1-16 mL (10,000 Luke s (RETACRIT) 00:00: Units Medica l 10,000 00 total) Center unit/mL subcutaneo Soln usly 3 injection (three) times a week at bedtime TUE/ I. carvediloL 2019-03- No 12.5mg Q.5D Take 0.5 [...] Center mouth 2 (two) times daily. atorvastati 2020-0 Yes 40mg QD Take [...] tablet 00 by mouth Center daily. gabapentin Yes 300mg QD Take [address] [facility] (NEURONTIN) 9-25 capsule [facility] 300 MG 00:00: (300 mg Medical capsule 00 total) by Center mouth daily. Curity Curity No Curity 1/2"x10yd 1/2"x10yd 8- 1/2"x10yd 00:00: 00 Curity Curity 0 No Curity 1/2"x10yd 1/2"x10yd 8- 1/2"x10yd 00:00: 00 Vital Signs Vital Name Observation Time Observation Value Comments Source WEIGHT 2020-06-13 12:30:00 81.2 kg WEIGHT 2020-06-11 18:42:00 84.2 kg WEIGHT 2020-06-06 11:38:00 86.2 kg WEIGHT 2020-06-06 07:45:00 89.2 kg WEIGHT 2020-06-04 11:45:00 82.6 kg WEIGHT 2020-06-04 08:07:00 85.6 kg WEIGHT 2020-06-02 11:04:00 83.8 kg WEIGHT 2020-05-30 12:00:00 83.3 kg WEIGHT 2020-05-30 09:15:00 85.3 kg HEIGHT 2020-05-29 06:00:00 185.4 cm WEIGHT 2020-05-29 06:00:00 85.276 kg HEIGHT 2020-05-27 14:51:00 182.9 cm WEIGHT 2020-05-27 14:51:00 86.183 kg HEIGHT 2019-10-10 00:00:00 185.4 cm WEIGHT 2019-10-10 00:00:00 110 kg HEIGHT 2019-09-05 00:00:00 182.9 cm WEIGHT 2019-09-05 00:00:00 99.791 kg WEIGHT 2019-12-21 15:30:00 98 kg WEIGHT 2019-12-21 12:30:00 99.5 kg WEIGHT 2019-12-19 13:30:00 99.5 kg WEIGHT 2019-12-17 11:26:00 99.5 kg WEIGHT 2019-12-14 16:45:00 101.4 kg HEIGHT 2019-12-05 20:42:00 185.4 cm HEIGHT 2019-12-05 00:00:00 185.4 cm WEIGHT 2019-12-05 00:00:00 101.4 kg HEIGHT 2019-11-05 00:00:00 185.4 cm WEIGHT 2019-11-05 00:00:00 93 kg Systolic blood 2021-10-19 22:26:00 107 mm[Hg] Univer sity of pressure [facility] Diastolic blood 2021-10-19 22:26:00 53 mm[Hg] [facility] Heart rate 2021-10-19 22:26:00 61 /min [facility] Respiratory rate 2021-10-19 22:26:00 14 /min [facility] Oxygen saturation in 2021-10-19 22:26:00 100 /min [facility] Arterial blood by [facility] Pulse oximetry Branch Body temperature 2021-10-19 20:26:[address] [facility] Body weight 2021-10-19 20:26:00 90 kg [facility] WEIGHT 2021-03-16 08:09:00 78 kg WEIGHT 2021-03-13 11:26:00 78 kg WEIGHT 2021-03-13 08:10:00 80 kg WEIGHT 2021-03-11 12:59:00 80 kg WEIGHT 2021-03-09 16:45:00 80 kg WEIGHT 2021-03-06 20:00:00 81 kg WEIGHT 2021-03-02 12:45:00 82 kg WEIGHT 2021-03-02 09:10:00 84 kg WEIGHT 2021-03-01 15:45:00 84 kg WEIGHT 2021-02-27 22:30:00 84 kg HEIGHT 2021-02-26 22:02:00 185.4 cm WEIGHT 2021-02-26 22:02:00 87 kg WEIGHT 2021-03-16 08:09:00 78 kg WEIGHT 2021-03-13 11:26:00 78 kg WEIGHT 2021-03-13 08:10:00 80 kg WEIGHT 2021-03-11 12:59:00 80 kg WEIGHT 2021-03-09 16:45:00 80 kg WEIGHT 2021-03-06 20:00:00 81 kg WEIGHT 2021-03-02 12:45:00 82 kg WEIGHT 2021-03-02 09:10:00 84 kg WEIGHT 2021-03-01 15:45:00 84 kg WEIGHT 2021-02-27 22:30:00 84 kg HEIGHT 2021-02-26 22:02:00 185.4 cm WEIGHT 2021-02-26 22:02:00 87 kg WEIGHT 2020-10-03 18:30:00 75.6 kg WEIGHT 2020-09-26 19:02:00 77.6 kg WEIGHT 2020-09-26 16:02:00 79.6 kg WEIGHT 2020-09-24 17:05:00 75.5 kg WEIGHT 2020-09-22 15:15:00 77.2 kg WEIGHT 2020-09-22 12:00:00 80.2 kg WEIGHT 2020-09-19 18:32:00 80.2 kg WEIGHT 2020-09-19 14:40:00 83.2 kg WEIGHT 2020-09-17 20:30:00 83.2 kg WEIGHT 2020-09-17 17:00:00 86.2 kg HEIGHT 2020-09-17 11:00:00 182.9 cm WEIGHT 2020-09-17 11:00:00 86.183 kg HEIGHT 2020-09-16 18:23:00 182.9 cm WEIGHT 2020-09-16 18:23:00 86.183 kg WEIGHT 2020-10-03 18:30:00 75.6 kg WEIGHT 2020-09-26 19:02:00 77.6 kg WEIGHT 2020-09-26 16:02:00 79.6 kg WEIGHT 2020-09-24 17:05:00 75.5 kg WEIGHT 2020-09-22 15:15:00 77.2 kg WEIGHT 2020-09-22 12:00:00 80.2 kg WEIGHT 2020-09-19 18:32:00 80.2 kg WEIGHT 2020-09-19 14:40:00 83.2 kg WEIGHT 2020-09-17 20:30:00 83.2 kg WEIGHT 2020-09-17 17:00:00 86.2 kg HEIGHT 2020-09-17 11:00:00 182.9 cm WEIGHT 2020-09-17 11:00:00 86.183 kg HEIGHT 2020-09-16 18:23:00 182.9 cm WEIGHT 2020-09-16 18:23:00 86.183 kg height 2020-07-03 09:20:00 73.0 [in_i] [facility] weight 2020-07-03 09:20:00 247.3 [lb_av] [facility] temperature 2020-07-03 09:20:00 98.4 [degF] [facility] bmi 2020-07-03 09:20:00 32.62 kg/m2 [facility] oximetry 2020-07-03 09:20:00 97 % Common [facility] blood pressure 2020-07-03 09:20:00 213 mm[Hg] [facility] blood pressure 2020-07-03 09:20:00 93 mm[Hg] [facility] height 2020-06-26 14:40:00 73.0 [in_i] [facility] weight 2020-06-26 14:40:00 247.3 [lb_av] [facility] temperature 2020-06-26 14:40:00 97.8 [degF] [facility] bmi 2020-06-26 14:40:00 32.62 kg/m2 [facility] oximetry 2020-06-26 14:40:00 97 % [facility] blood pressure 2020-06-26 14:40:00 107 mm[Hg] [facility] blood pressure 2020-06-26 14:40:00 59 mm[Hg] [facility] WEIGHT 2020-06-13 12:30:00 81.2 kg WEIGHT 2020-06-11 18:42:00 84.2 kg WEIGHT 2020-06-06 11:38:00 86.2 kg WEIGHT 2020-06-06 07:45:00 89.2 kg WEIGHT 2020-06-04 11:45:00 82.6 kg WEIGHT 2020-06-04 08:07:00 85.6 kg WEIGHT 2020-06-02 11:04:00 83.8 kg WEIGHT 2020-05-30 12:00:00 83.3 kg WEIGHT 2020-05-30 09:15:00 85.3 kg HEIGHT 2020-05-29 06:00:00 185.4 cm WEIGHT 2020-05-29 06:00:00 85.276 kg HEIGHT 2020-05-27 14:51:00 182.9 cm WEIGHT 2020-05-27 14:51:00 86.183 kg WEIGHT 2020-03-26 18:15:00 79.3 kg WEIGHT 2020-03-24 17:30:00 81.8 kg WEIGHT 2020-03-21 11:00:00 84.8 kg WEIGHT 2020-03-21 08:00:00 86.8 kg WEIGHT 2020-03-19 10:58:00 86.8 kg WEIGHT 2020-03-19 07:35:00 89.8 kg WEIGHT 2020-03-17 11:15:00 93.8 kg WEIGHT 2020-03-17 08:15:00 95.8 kg WEIGHT 2020-03-14 18:55:00 95.8 kg HEIGHT 2020-03-11 20:50:00 185.4 cm WEIGHT 2020-03-11 20:50:00 97.796 kg WEIGHT 2020-03-26 18:15:00 79.3 kg WEIGHT 2020-03-24 17:30:00 81.8 kg WEIGHT 2020-03-21 11:00:00 84.8 kg WEIGHT 2020-03-21 08:00:00 86.8 kg WEIGHT 2020-03-19 10:58:00 86.8 kg WEIGHT 2020-03-19 07:35:00 89.8 kg WEIGHT 2020-03-17 11:15:00 93.8 kg WEIGHT 2020-03-17 08:15:00 95.8 kg WEIGHT 2020-03-14 18:55:00 95.8 kg HEIGHT 2020-03-11 20:50:00 185.4 cm WEIGHT 2020-03-11 20:50:00 97.796 kg WEIGHT 2020-01-21 15:15:00 91.4 kg WEIGHT 2020-01-18 23:00:00 95 kg WEIGHT 2020-01-16 16:57:00 97 kg WEIGHT 2020-01-09 09:15:00 100 kg WEIGHT 2020-01-09 06:15:00 102.9 kg WEIGHT 2020-01-07 18:45:00 101.3 kg WEIGHT 2020-01-06 23:37:00 101.334 kg HEIGHT 2020-01-06 16:05:00 170.2 cm WEIGHT 2020-01-06 16:05:00 97 kg WEIGHT 2020-01-21 15:15:00 91.4 kg WEIGHT 2020-01-18 23:00:00 95 kg WEIGHT 2020-01-16 16:57:00 97 kg WEIGHT 2020-01-09 09:15:00 100 kg WEIGHT 2020-01-09 06:15:00 102.9 kg WEIGHT 2020-01-07 18:45:00 101.3 kg WEIGHT 2020-01-06 23:37:00 101.334 kg HEIGHT 2020-01-06 16:05:00 170.2 cm WEIGHT 2020-01-06 16:05:00 97 kg WEIGHT 2019-12-21 15:30:00 98 kg WEIGHT 2019-12-21 12:30:00 99.5 kg WEIGHT 2019-12-19 13:30:00 99.5 kg WEIGHT 2019-12-17 11:26:00 99.5 kg WEIGHT 2019-12-14 16:45:00 101.4 kg HEIGHT 2019-12-05 20:42:00 185.4 cm HEIGHT 2019-12-05 00:00:00 185.4 cm WEIGHT 2019-12-05 00:00:00 101.4 kg HEIGHT 2019-11-05 00:00:00 185.4 cm WEIGHT 2019-11-05 00:00:00 93 kg HEIGHT 2019-10-10 00:00:00 185.4 cm WEIGHT 2019-10-10 00:00:00 110 kg Systolic blood 2021-07-04 23:22:32 119 mm[Hg] [facility] Diastolic blood 2021-07-04 23:22:32 64 mm[Hg] [facility] pressure Heart rate 2021-07-04 23:22:32 90 /min [facility] Body temperature 2021-07-04 23:22:32 36.94 Rima [facility] Respiratory rate 2021-07-04 23:22:32 17 /min [facility] Oxygen saturation in 2021-07-04 23:22:32 97 /min [facility] Arterial blood by Pulse oximetry Body weight 2021-07-04 10:37:17 96.616 kg [facility] BMI 2021-07-04 10:37:17 28.10 kg/m2 [facility] Body height 2021-07-03 14:18:00 185.4 cm [facility] Systolic blood 2021-03-16 15:00:00 135 mm[Hg] [facility] Diastolic blood 2021-03-16 15:00:00 71 mm[Hg] [facility] Heart rate 2021-03-16 15:00:00 98 /min [facility] Body temperature 2021-03-16 15:00:00 36.56 Rima [facility] Respiratory rate 2021-03-16 15:00:00 15 /min [facility] Oxygen saturation in 2021-03-16 15:00:00 100 /min [facility] Arterial blood by Medical Ce [facility]ter Pulse oximetry Body weight 2021-03-16 08:09:00 78 kg [facility] BMI 2021-03-16 08:09:00 22.69 kg/m2 [facility] Body height 2021-02-26 22:02:00 185.4 cm [facility] Procedures Procedure Date / Time Performing Source Performed Clinician COVID-19 (ID NOW RAPID 2021-10-19 22:26:00 Lyle Canales [facility] TESTING) Medical Branch COMP. METABOLIC PANEL 2021-10-19 21:34:00 Oralia Martines [facility] ([id number]) [facility] XR CHEST 1 VW 2021-10-19 20:57:35 Oralia Martines [facility] HB ECG ROUTINE & RHYTHM 2021-10-19 20:36:21 Oralia Martines [facility] TROPONIN I 2021-10-19 20:32:00 Oralia Martines [facility] CBC WITH DIFF 2021-10-19 20:32:00 Oralia Martines [facility] POC GLUCOSE 2021-07-04 23:21:00 [facility] 2021-07-04 18:48:12 Moon Kelly [facility]ital POC GLUCOSE 2021-07-04 15:39:00 [facility] POC [facility]SE 2021-07-04 12:31:00 [facility] COMPREHENS[facility] METABOLIC 2021-07-04 11:00[facility] WITH PLATELET AND 2021-07-04 [facility]:00[facility]ES[facility] LEVEL 2021-07-04 11:00:00 [facility] ESTIMATED GFR 2021-07-04 11:00:00 [facility] POC GLUCOSE 2021-07-04 01:11:00 [facility] TRANSFUSE RED BLOOD 2021-07-03 22:45:00 [facility] HEMODIALYSIS 2021-07-03 22:15:03 [facility] TRANSFUSE RED BLOOD 2021-07-03 22:00:00 [facility] HEPATITIS B SURFACE 2021-07-03 21:19[facility] HEPATITIS B SURFACE AB, 2021-07-03 21:19:00 Maru [facility] QUANTITATIVE Gargollo HEPATITIS B SURFACE 2021-07-03 21:19:00 Maru [facility] ANTIBODY Gargollo POC GLUCOSE 2021-07-03 15:54:00 Joao [facility] IR TUNNELED DIALYSIS 2021-07-03 15:23:34 Lakisha Pimentel [facility] CATHETER PLACEMENT US GUIDED VASCULAR 2021-07-03 15:23:34 [facility] ACCESS POC GLUCOSE 2021-07-03 12:23:00 [facility]SPIKE 2021-07-03 10:48:00 CharlotteBaudilio [facility] IGG ANTIBODY TITER Rose COMPREHENSIVE METABOLIC 2021-07-03 10:48:00 Joao [facility] PANEL CBC WITH PLATELET AND 2021-07-03 10:48:00 [facility] DIFFERENTIAL MAGNESIUM LEVEL 2021-07-03 10:48:00 [facility] SEROLOGY 2021-07-03 10:48:00 Baudilio Benítez [facility] PATIENT SURVEILLANCE Rose ESTIMATED GFR 2021-07-03 10:48:00 Joao [facility] POC GLUCOSE 2021-07-03 00:46:00 [facility] POC GLUCOSE 2021-07-02 20:46:00 [facility] POC GLUCOSE 2021-07-02 12:50:00 [facility] POC GLUCOSE 2021-07-02 11:46:00 [facility] XR CHEST 1 VW PORTABLE 2021-07-02 11:37:23 Joao [facility] TYPE AND SCREEN 2021-07-02 10:38:00 Power Herman PREPARE RBC 2021-07-02 10:38:00 Power Herman CBC WITH PLATELET AND 2021-07-02 09:39:00 Beka Qureshi [facility] DIFFERENTIAL COMPREHENSIVE METABOLIC 2021-07-02 09:39:00 Beka Qureshi [facility] PANEL MAGNESIUM LEVEL 2021-07-02 09:39:00 [facility] ESTIMATED GFR 2021-07-02 09:39:00 Beka Qureshi TROPONIN T 2021-07-02 03:40:00 Beka Qureshi spital POC GLUCOSE 2021-07-02 01:47:00 Tao Shepherdradha [facility] COVID-19 QUALITATIVE 2021-07-02 00:42:00 Titus [facility] RT-PCR TROPONIN T 2021-07-02 00:42:00 Beka Qureshi spital RI CRITICAL CARE 2021-07-01 21:46:21 Beka Qureshi H ospital ILL/INJURED PATIENT INIT 30-74 MIN ECG ED PRELIMINARY 2021-07-01 21:46:21 [facility] INTERPRETATION XR CHEST 1 VW PORTABLE 2021-07-01 21:36:02 [facility] CBC WITH PLATELET AND 2021-07-01 21:25:00 [facility] DIFFERENTIAL PROTHROMBIN TIME WITH 2021-07-01 21:25:00 [facility] INR PARTIAL THROMBOPLASTIN 2021-07-01 21:25:00 [facility] TIME (PTT) COMPREHENSIVE METABOLIC 2021-07-01 21:25:00 [facility] PANEL CREATINE KINASE, TOTAL 2021-07-01 21:25:00 [facility] (CPK) TROPONIN T 2021-07-01 21:25:00 Beka Qureshi spital B NATRIURETIC PEPTIDE 2021-07-01 21:25:00 [facility] ESTIMATED GFR 2021-07-01 21:25:00 Beka Qureshi spital ECG 12-LEAD 2021-07-01 20:19:25 Beka Qureshi spital POCT-GLUCOSE METER 2021-03-16 12:40:00 [facility] HEMODIALYSIS INPATIENT 2021-03-16 08:18:39 Angie Parr [facility] POCT-GLUCOSE METER 2021-03-16 07:43:00 [facility] VANCOMYCIN LEVEL, RANDOM 2021-03-16 04:45:00 Trudy Karimi [facility] BASIC METABOLIC PANEL 2021-03-16 04:45:00 Ari, [facility] POCT-GLUCOSE METER 2021-03-15 21:21:00 Ari, [facility] POCT-GLUCOSE METER 2021-03-15 16:50:00 Ari, [facility] POCT-GLUCOSE METER 2021-03-15 11:48:00 [facility], [facility] BASIC METABOLIC PANEL 2021-03-15 09:55:00 Solange [facility] POCT-GLUCOSE METER 2021-03-15 07:14:00 Ari, [facility] POCT-GLUCOSE METER 2021-03-14 21:02:00 [facility] POCT-GLUCOSE METER 2021-03-14 15:31:00 [facility] BASIC METABOLIC PANEL 2021-03-14 12:22:00 Anumngozi [facility] POCT-GLUCOSE METER 2021-03-14 11:46:00 [facility], [facility] POCT-GLUCOSE METER 2021-03-14 07:34:00 [facility] POCT-GLUCOSE METER 2021-03-13 23:20:00 [facility] POCT-GLUCOSE METER 2021-03-13 15:33:00 [facility] POCT-GLUCOSE METER 2021-03-13 12:39:00 [facility] HEMODIALYSIS INPATIENT 2021-03-13 11:59:00 Angie Parr [facility] POCT-GLUCOSE METER 2021-03-12 23:51:00 [facility], [facility] POCT-GLUCOSE METER 2021-03-12 15:25:00 [facility], [facility] IRRIGATION AND 2021-03-12 10:05:00 [facility] DEBRIDEMENT, WOUND, Center LOWER EXTREMITY APPLICATION, GRAFT, 2021-03-12 10:05:00 Clark Danielle [facility] SKIN, SPLIT-THICKNESS, Center TO LOWER EXTREMITY POCT-GLUCOSE METER 2021-03-12 09:21:00 [facility] CBC W/PLT COUNT & AUTO 2021-03-12 04:13:00 Macrina [facility] Center BASIC METABOLIC PANEL 2021-03-12 04:13:00 [facility] PHOSPHORUS 2021-03-12 04:13:00 [facility] CBC W/PLT COUNT & AUTO 2021-03-12 04:13:00 [facility] PO[facility]UCOSE METER 2021-03-11 21:09:00 [facility] POCT-GLUCOSE METER 2021-03-11 16:30:00 [facility] TYPE AND SCREEN, 2021-03-11 13:56:00 [facility] Center HEMODIALYSIS INPATIENT 2021-03-11 13:14:54 [facility] POCT-GLUCOSE METER 2021-03-11 11:48:00 [facility] POCT-GLUCOSE METER 2021-03-11 07:11:00 [facility] SARS-COV2/RT-PCR ([facility] & 2021-03-11 04:50:00 [facility] REF LABS) Center CBC W/PLT COUNT & AUTO 2021-03-11 04:45:00 Macrina [facility] DIFFERENTIAL Center CBC W/PLT COUNT & AUTO 2021-03-11 04:45[facility] PO[facility]SE METER 2021-03-10 20:47:00 [facility] POCT-GLUCOSE METER 2021-03-10 15:35:00 [facility] BASIC METABOLIC PANEL 2021-03-10 04:57:00 Macrina [facility] CBC W/PLT COUNT & AUTO 2021-03-10 04:57:00 Macrina [facility] CBC W/PLT COUNT & AUTO 2021-03-10 04:57:00 Macrina [facility] POCT-GLUCOSE METER 2021-03-09 22:57:00 Macrina [facility] POCT-GLUCOSE METER 2021-03-09 17:49:00 [facility] 2021-03-09 14:11:03 Keyona [facility] POCT-GLUCOSE METER 2021-03-09 11:09:00 Macrina [facility] POCT-GLUCOSE METER 2021-03-09 07:04:00 Macrina [facility] BASIC METABOLIC PANEL 2021-03-09 05:25:00 Macrina [facility] POCT-GLUCOSE METER 2021-03-08 20:49:00 Macrina [facility] POCT-GLUCOSE METER 2021-03-08 15:24:00 Macrina [facility] POCT-GLUCOSE METER 2021-03-08 11:14:00 Macrina [facility] POCT-GLUCOSE METER 2021-03-08 07:17:00 Macrina [facility] BASIC METABOLIC PANEL 2021-03-08 04:39:00 Macrina [facility] VANCOMYCIN LEVEL, RANDOM 2021-03-08 04:39:[address] [facility] Center PHOSPHORUS 2021-03-08 04:39:00 Julio Hurst [facility] POCT-GLUCOSE METER 2021-03-07 21:11:00 Macrina [facility] POCT-GLUCOSE METER 2021-03-07 16:03:00 Macrina [facility] POCT-GLUCOSE METER 2021-03-07 11:56:00 Macrina [facility] POCT-GLUCOSE METER 2021-03-07 08:30:00 Macrina [facility] CBC W/PLT COUNT & AUTO 2021-03-07 06:02:00 Macrina [facility] CBC W/PLT COUNT & AUTO 2021-03-07 06:02:00 [facility] VANCOMY[facility] LEV[facility], TROUGH 2021-03-07 03:27:00 [place] [facility] POCT-GLUCOSE METER 2021-03-06 20:48:00 [facility] HEMODIALYSIS INPATIENT 2021-03-06 17:10:59 Angie Parr [facility] POCT-GLUCOSE METER 2021-03-06 16:02:00 [facility] POCT-GLUCOSE METER 2021-03-06 12:10:00 [facility] POCT-GLUCOSE METER 2021-03-06 08:18:00 [facility] BASIC METABOLIC PANEL 2021-03-06 06:06:00 [facility] CBC W/PLT COUNT & AUTO 2021-03-06 06:06:00 [facility] CBC W/PLT COUNT & AUTO 2021-03-06 06:06:00 [facility] POCT-GLUCOSE METER 2021-03-05 21:07:00 [facility] POCT-GLUCOSE METER 2021-03-05 16:12:00 [facility] ANGIOPLASTY, ARTERY, 2021-03-05 11:10:00 [facility] LOWER EXTREMITY Center BASIC METABOLIC PANEL 2021-03-05 03:58:00 [facility] CBC W/PLT COUNT & AUTO 2021-03-05 03:58:00 [facility] VANCOMYCIN LEVEL, RANDOM 2021-03-05 03:58:00 Leona Khan [facility] CBC W/PLT COUNT & AUTO 2021-03-05 03:58:00 [facility] POCT-GLUCOSE METER 2021-03-05 03:54:00 [facility] SARS-COV2/RT-PCR ([facility] & 2021-03-05 00:10:00 [facility] REF LABS) Center XR FOOT 2 VIEWS RIGHT 2021-03-04 23:03:00 [facility] HEMODIALYSIS INPATIENT 2021-03-04 18:59:01 Julio Hurst [facility] BASIC METABOLIC PANEL 2021-03-04 12:45:00 [facility] VANCOMYCIN LEVEL, RANDOM 2021-03-04 12:45:00 Joyce Wray [facility] POCT-GLUCOSE METER 2021-03-04 11:23:00 [facility] POCT-GLUCOSE METER 2021-03-04 09:07:00 [facility] POCT-GLUCOSE METER 2021-03-03 16:32:00 [facility] POCT-GLUCOSE METER 2021-03-03 11:24:00 [facility] POCT-GLUCOSE METER 2021-03-03 07:00:00 [facility] BASIC METABOLIC PANEL 2021-03-03 06:44:00 [facility] TYPE AND SCREEN, 2021-03-03 06:44:00 Danita Dayton [facility] AUTOMATED Center CBC W/PLT COUNT & AUTO 2021-03-03 04:00:00 [facility] DIFFERENTIAL Center CBC W/PLT COUNT & AUTO 2021-03-03 04:00:00 [facility] DIFFERENTIAL Center POCT-GLUCOSE METER 2021-03-02 23:46:00 Bal Schrader [facility] PHOSPHORUS 2021-03-02 17:20:00 [facility] FERRITIN 2021-03-02 17:20:00 [facility] IRON, TIBC, % SAT. 2021-03-02 17:20:00 [facility] (WITHOUT FERRITIN) Center POCT-GLUCOSE METER 2021-03-02 15:58:00 Bal Schrader [facility] SURGICALLY OBTAINED 2021-03-02 15:18:07 [facility] CULTURE + GRAM STAIN Center ANAEROBIC CULTURE 2021-03-02 15:18:07 [facility] AFB CULTURE + SMEAR 2021-03-02 15:18:07 [facility] (NON-SPUTUM) [place] FUNGUS CULTURE + SMEAR 2021-03-02 15:18:07 [facility] TISSUE EXAM 2021-03-02 15:11:00 [facility] SURGICALLY OBTAINED 2021-03-02 15:07:15 [facility] CULTURE + GRAM STAIN Center ANAEROBIC CULTURE 2021-03-02 15:07:15 [facility] AFB CULTURE + SMEAR 2021-03-02 15:07:15 [facility] (NON-SPUTUM) [place] FUNGUS CULTURE + SMEAR 2021-03-02 15:07:15 [facility] SPIN/CONCENTRATION 2021-03-02 15:07:00 [facility] Center IRRIGATION AND 2021-03-02 14:12:[address] [facility], WOUND, Center LOWER EXTREMITY POCT-GLUCOSE METER 2021-03-02 11:14:00 Bal Schrader [facility] HEMODIALYSIS INPATIENT 2021-03-02 09:21:31 [facility] CBC W/PLT COUNT & AUTO 2021-03-02 04:31:00 [facility] BASIC METABOLIC PANEL 2021-03-02 04:31:00 [facility] CBC W/PLT COUNT & AUTO 2021-03-02 04:31:00 [facility] POCT-GLUCOSE METER 2021-03-01 21:38:00 [facility] XR CHEST 1 VIEW PORTABLE 2021-03-01 18:04:00 Zenia Davies [facility] / BEDSIDE Center POCT-GLUCOSE METER 2021-03-01 16:47:00 Macrina, [facility] POCT-GLUCOSE METER 2021-03-01 11:39:00 Macrina [facility] HEMODIALYSIS INPATIENT 2021-03-01 10:38:37 [facility] POCT-GLUCOSE METER 2021-03-01 07:49:00 Macrina [facility] BASIC METABOLIC PANEL 2021-03-01 06:36:00 [facility] CBC W/PLT COUNT & AUTO 2021-03-01 03:20:00 [facility] BASIC METABOLIC PANEL 2021-03-01 03:20:00 [facility] CBC W/PLT COUNT & AUTO 2021-03-01 03:20:00 [facility]rina [facility] POCT-GLUCOSE METER 2021-02-28 21:10:00 Macrina, [facility] POCT-GLUCOSE METER 2021-02-28 15:42:00 [facility] POCT-GLUCOSE METER 2021-02-28 11:54:00 Macrina [facility] HC ARTERIAL DOPPLER LEG 2021-02-28 09:06:00 [facility] XR FOOT 2 VIEWS RIGHT 2021-02-28 07:32:00 Keke [facility] POCT-GLUCOSE METER 2021-02-28 07:30:00 [facility] POCT-GLUCOSE METER 2021-02-27 23:15:00 [facility] HEMODIALYSIS INPATIENT 2021-02-27 23:11:11 Thierno Rizo [facility] VANCOMYCIN LEVEL, RANDOM 2021-02-27 22:07:00 Adam Rowley [facility] HEPATITIS B SURFACE 2021-02-27 19:56:00 [facility] SARS-COV2/RT-PCR ([facility] & 2021-02-27 13:48:00 [facility] REF LABS) Center POCT-GLUCOSE METER 2021-02-27 11:24:00 [facility] POCT-GLUCOSE METER 2021-02-27 07:45:00 [facility] CBC W/PLT COUNT & AUTO 2021-02-26 23:03:00 [facility] CBC W/PLT COUNT & AUTO 2021-02-26 23:03:00 [facility] BLOOD CULTURE 2021-02-26 23:02:00 [facility] PROTHROMBIN TIME/INR 2021-02-26 23:02:00 [facility] APTT 2021-02-26 23:02:00 [facility] COMPREHENSIVE METABOLIC 2021-02-26 23:02:00 [facility] MAGNESIUM 2021-02-26 23:02:00 [facility] PHOSPHORUS 2021-02-26 23:02:00 [facility] C-REACTIVE PROTEIN 2021-02-26 23:02:00 [facility] LACTIC ACID, VENOUS 2021-02-26 23:02:00 [facility] CARDIAC CATH REPORT - 2021-02-26 00:00:00 Provider [facility] SCAN Scanning Center [id number] 2020-04-12 00:00:00 [facility] [id number] 2020-04-12 00:00:00 [facility] [id number] 2020-04-12 00:00:00 [facility] [id number] 2020-04-12 00:00:00 [facility] [id number] 2020-04-12 00:00:00 [facility] [id number] 2020-04-12 00:00:00 [facility] [id number] 2020-04-12 00:00:00 [facility] [id number] 2020-04-12 00:00:00 [facility] [id number] 2020-04-12 00:00:00 [facility] [id number] 2020-04-12 00:00:00 [facility] [id number] 2020-03-28 00:00:00 [facility] [id number] 2020-03-28 00:00:00 [facility] [id number] 2020-03-28 00:00:00 [facility] [id number] 2020-03-28 00:00:00 [facility] [id number] 2020-03-28 00:00:00 [facility] [id number] 2020-03-28 00:00:00 [facility] [id number] 2020-03-28 00:00:00 [facility] [id number] 2020-03-28 00:00:00 [facility] [id number] 2020-03-28 00:00:00 [facility] [id number] 2020-03-28 00:00:00 [facility] [id number] 2020-03-28 00:00:00 [facility] [id number] 2020-03-28 00:00:00 [facility] [id number] 2020-03-28 00:00:00 [facility] [id number] 2020-03-28 00:00:00 [facility] [id number] 2020-03-28 00:00:00 [facility] [id number] 2020-03-28 00:00:00 [facility] [id number] 2020-03-28 00:00:00 [facility] [id number] 2020-03-28 00:00:00 [facility] [id number] 2020-03-28 00:00:00 [facility] [id number] 2020-03-28 00:00:00 [facility] [id number] 2020-03-28 00:00:00 [facility] [id number] 2020-03-28 00:00:00 [facility] [id number] 2020-03-28 00:00:00 [facility] [id number] 2020-03-28 00:00:00 [facility] [id number] 2020-03-28 00:00:00 [facility] [id number] 2020-03-28 00:00:00 [facility] [id number] 2020-03-28 00:00:00 [facility] [id number] 2020-03-28 00:00:00 [facility] [place] [id number] 2019-06-29 00:00:00 [facility] [id number] 2019-06-29 00:00:00 [facility] [id number] 2019-06-29 00:00:00 [facility] [id number] 2019-06-29 00:00:00 [facility] [id number] 2019-06-29 00:00:00 [facility] [id number] 2019-06-29 00:00:00 [facility] [id number] 2019-06-29 00:00:00 [facility] [place] Plan of Care Planned Activity Planned Date Details Comments Source Future Scheduled 2022-11-05 Influenza Vaccine (Season [facility] 00:00:00 Ended) [code = Influenza Med ical Center Vaccine (Season Ended)] Future Scheduled 2022-11-05 INFLUENZA VACCINE (Season [facility] 00:00:00 Ended) [code = INFLUENZA Med ical Center VACCINE (Season Ended)] Future Scheduled 2022-11-05 INFLUENZA VACCINE (Season [facility] 00:00:00 Ended) [code = INFLUENZA Med ical Center VACCINE (Season Ended)] Future Scheduled 2022-11-05 INFLUENZA VACCINE (Season [facility] 00:00:00 Ended) [code = INFLUENZA Med ical Center VACCINE (Season Ended)] Future Scheduled 2022-11-05 INFLUENZA VACCINE (Season [facility] 00:00:00 Ended) [code = INFLUENZA Med ical Center VACCINE (Season Ended)] Future Scheduled 2022-11-05 INFLUENZA VACCINE (Season [facility] 00:00:00 Ended) [code = INFLUENZA Med ical Center VACCINE (Season Ended)] Future Scheduled 2022-11-05 INFLUENZA VACCINE (Season [facility] 00:00:00 Ended) [code = INFLUENZA Med ical Center VACCINE (Season Ended)] Future Scheduled 2022-11-05 INFLUENZA VACCINE (Season [facility] 00:00:00 Ended) [code = INFLUENZA Med ical Center VACCINE (Season Ended)] Future Scheduled 2022-11-05 Influenza Vaccine (Season [facility] 00:00:00 Ended) [code = Influenza Med ical Center Vaccine (Season Ended)] Future Scheduled 2022-11-05 Influenza Vaccine (#1) [facility]00 [code = Influenza Vaccine [facility] (#1)] Future Scheduled 2022-08-21 Screening for malignant [facility] 19:06:48 neoplasm of colon Hospital (procedure) [code = 259083940] Future Scheduled 2022-08-21 Screening for malignant [facility] 19:06:48 neoplasm of colon Hospital (procedure) [code = 985007270] Future Scheduled 2022-08-21 Pneumococcal Vaccine: [facility] 19:06:48 Pediatrics (0 to 5 Years) Ho spital and At-Risk Patients (6 to 64 Years) (1 - PCV) [code = Pneumococcal Vaccine: Pediatrics (0 to 5 Years) and At-Risk Patients (6 to 64 Years) (1 - PCV)] Future Scheduled 2022-08-21 DIABETES: RETINAL EYE [facility] 19:06:48 EXAM [code = DIABETES: [facility] RETINAL EYE EXAM] Future Scheduled 2022-08-21 DIABETIC FOOT EXAM [code [facility] 19:06:48 = DIABETIC FOOT EXAM] [facility] 2022-[facility]-21 Screening for malignant [facility] 19:06:48 neoplasm of colon Hospital (procedure) [code = 621249328] Future Scheduled 2022-08-21 SHINGLES VACCINES (1 of [facility] 19:06:48 2) [code = SHINGLES Hospital VACCINES (1 of 2)] Future Scheduled 2022-08-21 Screening for malignant [facility] 19:06:48 neoplasm of colon Hospital (procedure) [code = [id number]] Future Scheduled 2022-08-21 Screening for malignant [facility] 19:06:48 neoplasm of colon Hospital (procedure) [code = [id number]] Future Scheduled 2022-08-21 COVID-19 VACCINE (3 - [facility] 19:06:48 Pfizer series) [code = [facility] mar[facility] COVID-19 VACCINE (3 - Pfizer series)] Future Scheduled 2022-08-21 INFLUENZA VACCINE [code = [facility] 19:06:48 INFLUENZA VACCINE] Hospital Future Scheduled 2022-06-24 Pneumococcal Vaccine: [facility] 14:24:23 Pediatrics (0 to 5 Years) Ho spital and At-Risk Patients (6 to 64 Years) (1 - PCV) [code = Pneumococcal Vaccine: Pediatrics (0 to 5 Years) and At-Risk Patients (6 to 64 Years) (1 - PCV)] Future Scheduled 2022-06-24 DIABETES: RETINAL EYE [facility] 14:24:23 EXAM [code = DIABETES: [facility]pi mar[facility] RETINAL EYE EXAM] Future Scheduled 2022-06-24 DIABETIC FOOT EXAM [code [facility] 14:24:23 = DIABETIC FOOT EXAM] Hospit al Future Scheduled 2022-06-24 SHINGLES VACCINES (1 of [facility] 14:24:23 2) [code = SHINGLES Hospital VACCINES (1 of 2)] Future Scheduled 2022-06-24 COLONOSCOPY SCREENING [facility] 14:24:23 [code = COLONOSCOPY Hospital SCREENING] Future Scheduled 2022-06-24 COVID-19 VACCINE (3 - [facility] 14:24:23 Booster for Pfizer Hospital series) [code = COVID-19 VACCINE (3 - Booster for Pfizer series)] Future Scheduled 2022-06-24 INFLUENZA VACCINE [code = [facility] 14:24:23 INFLUENZA VACCINE] Hospital Future Scheduled 2022-03-[address] [facility] 00:00:00 Counseling and Screening Med ical Center (12+) [code = Tobacco Cessation Counseling and Screening (12+)] Future Scheduled 2022-03-[address] [facility] 00:00:00 Counseling and Screening Med ical Center (12+) [code = Tobacco Cessation Counseling and Screening (12+)] Future Scheduled 2022-03-[address] [facility] 00:00:00 Counseling and Screening Med ical Center (12+) [code = Tobacco Cessation Counseling and Screening (12+)] Future Scheduled 2022-03-[address] [facility] 00:00:00 Counseling and Screening Med ical Center (12+) [code = Tobacco Cessation Counseling and Screening (12+)] Future Scheduled 2022-03-[address] [facility] 00:00:00 Counseling and Screening Med ical Center (12+) [code = Tobacco Cessation Counseling and Screening (12+)] Future Scheduled 2022-03-[address] [facility] 00:00:00 Counseling and Screening Med ical Center (12+) [code = Tobacco Cessation Counseling and Screening (12+)] Future Scheduled 2022-03-[address] [facility] 00:00:00 Counseling and Screening Med ical Center (12+) [code = Tobacco Cessation Counseling and Screening (12+)] Future Scheduled 2022-03-[address] [facility] 00:00:00 Counseling and Screening Med ical Center (12+) [code = Tobacco Cessation Counseling and Screening (12+)] Future Scheduled 2022-03-[address] [facility] 00:00:00 Counseling and Screening Med ical Center (12+) [code = Tobacco Cessation Counseling and Screening (12+)] Future Scheduled 2022-03-[address] [facility] 00:00:00 Counseling and Screening Med ical Center (12+) [code = Tobacco Cessation Counseling and Screening (12+)] Future Scheduled 2022-03-[address] [facility] 00:00:00 Counseling and Screening Med ical Center (12+) [code = Tobacco Cessation Counseling and Screening (12+)] Future Scheduled 2022-03-[address] [facility] 00:00:00 Counseling and Screening Med ical Center (12+) [code = Tobacco Cessation Counseling and Screening (12+)] Future Scheduled 2022-03-[address] [facility] 00:00:00 (12+) [code = DEPRESSION Med ical Center SCREENING (12+)] Future Scheduled 2022-03-[address] [facility] 00:00:00 (12+) [code = DEPRESSION Med ical Center SCREENING (12+)] Future Scheduled 2022-03-[address] [facility] 00:00:00 (12+) [code = DEPRESSION Med ical Center SCREENING (12+)] Future Scheduled 2022-03-[address] [facility] 00:00:00 (12+) [code = DEPRESSION Med ical Center SCREENING (12+)] Future Scheduled 2022-03-[address] [facility] 00:00:00 (12+) [code = DEPRESSION Med ical Center SCREENING (12+)] Future Scheduled 2022-03-[address] [facility] 00:00:00 (12+) [code = DEPRESSION Med ical Center SCREENING (12+)] Future Scheduled 2022-03-[address] [facility] 00:00:00 (12+) [code = DEPRESSION Med ical Center SCREENING (12+)] Future Scheduled 2022-03-[address] [facility] 00:00:00 (12+) [code = DEPRESSION Med ical Center SCREENING (12+)] Future Scheduled 2022-03-[address] [facility] 00:00:00 (12+) [code = DEPRESSION Med ical Center SCREENING (12+)] Future Scheduled 2022-03-[address] [facility] 00:00:00 (12+) [code = DEPRESSION Med ical Center SCREENING (12+)] Future Scheduled 2022-03-[address] [facility] 00:00:00 (12+) [code = DEPRESSION Med ical Center SCREENING (12+)] Future Scheduled 2022-03-[address] [facility] 00:00:00 (12+) [code = DEPRESSION Med ical Center SCREENING (12+)] Future Scheduled 2021-12-29 HEPATITIS B VACCINES (1 [facility] 14:28:47 of 3 - 3-dose series) Hospit al [code = HEPATITIS B VACCINES (1 of 3 - 3-dose series)] Future Scheduled 2021-12-29 Pneumococcal Vaccine: [facility] 14:28:47 Pediatrics (0 to 5 Years) Ho spital and At-Risk Patients (6 to 64 Years) (1 - PCV) [code = Pneumococcal Vaccine: Pediatrics (0 to 5 Years) and At-Risk Patients (6 to 64 Years) (1 - PCV)] Future Scheduled 2021-12-29 DIABETES: RETINAL EYE [facility] 14:28:47 EXAM [code = DIABETES: [facility] RETINAL EYE EXAM] Future Scheduled 2021-12-29 DIABETIC FOOT EXAM [code [facility] 14:28:47 = DIABETIC FOOT EXAM] Hospit al Future Scheduled 2021-12-29 SHINGLES VACCINES (1 of [facility] 14:28:47 2) [code = SHINGLES Hospital VACCINES (1 of 2)] Future Scheduled 2021-12-29 COLONOSCOPY SCREENING [facility] 14:28:47 [code = COLONOSCOPY Hospital SCREENING] Future Scheduled 2021-12-29 COVID-19 VACCINE (3 - [facility] 14:28:47 Booster for Pfizer Hospital series) [code = COVID-19 VACCINE (3 - Booster for Pfizer series)] Future Scheduled 2021-12-29 INFLUENZA VACCINE [code = [facility] 14:28:47 INFLUENZA VACCINE] Hospital Future Scheduled 2021-12-29 HEPATITIS B VACCINES (1 [facility] 14:28:47 of 3 - 3-dose series) Hospit al [code = HEPATITIS B VACCINES (1 of 3 - 3-dose series)] Future Scheduled 2021-12-29 Pneumococcal Vaccine: [facility] 14:28:47 Pediatrics (0 to 5 Years) Ho spital and At-Risk Patients (6 to 64 Years) (1 - PCV) [code = Pneumococcal Vaccine: Pediatrics (0 to 5 Years) and At-Risk Patients (6 to 64 Years) (1 - PCV)] Future Scheduled 2021-12-29 DIABETES: RETINAL EYE [facility] 14:28:47 EXAM [code = DIABETES: [facility]pi [facility] RETINAL EYE EXAM] Future Scheduled 2021-12-29 DIABETIC FOOT EXAM [code [facility] 14:28:47 = DIABETIC FOOT EXAM] Hospit al Future Scheduled 2021-12-29 SHINGLES VACCINES (1 of [facility] 14:28:47 2) [code = SHINGLES Hospital VACCINES (1 of 2)] Future Scheduled 2021-12-29 COLONOSCOPY [facility]CREENING [facility] 14:28:47 [code = COLONOSCOPY Hospital SCREENING] Future Scheduled 2021-12-29 COVID-19 VACCINE (3 - [facility] 14:28:47 Booster for Pfizer Hospital series) [code = COVID-19 VACCINE (3 - Booster for Pfizer series)] Future Scheduled 2021-12-29 INFLUENZA VACCINE [code = [facility] 14:28:47 INFLUENZA VACCINE] Hospital Future Scheduled 2021-11-05 INFLUENZA VACCINE (#1[facility] [code = INFLUENZA VACCINE [facility]ical Center (#1)] Future Scheduled 2021-11-05 INFLUENZA VACCINE (#1) [facility] 00:00:00 [code = INFLUENZA VACCINE [facility] Center (#1)] Future Scheduled 2021-11-05 INFLUENZA VACCINE (#1) [facility] 00:00:00 [code = INFLUENZA VACCINE [facility] Center (#1)] Future Scheduled 2021-11-05 INFLUENZA VACCINE (#1) [facility] 00:00:00 [code = INFLUENZA VACCINE [facility] Center (#1)] Future Scheduled 2021-03-[address] MED[address]AL WELLNESS [facility] 00:00:00 (YEAR 2 or FIRST YEAR if Med ical Center no IPPE) [code = MEDICARE ANNUAL WELLNESS (YEAR 2 or FIRST YEAR if no IPPE)] Future Scheduled 2021-03-[address] [facility] 00:00:00 (YEAR 2 or FIRST YEAR if Med ical Center no IPPE) [code = MEDICARE ANNUAL WELLNESS (YEAR 2 or FIRST YEAR if no IPPE)] Future Scheduled 2021-03-08 [address]NUAL WELLNESS [facility] 00:00:00 (YEAR 2 or FIRST YEAR if Med ical Center no IPPE) [code = MEDICARE ANNUAL WELLNESS (YEAR 2 or FIRST YEAR if no IPPE)] Future Scheduled 2021-03-[address]NU[address] WE[address]NESS [facility] 00:00:00 (YEAR 2 or FIRST YEAR if Med ical Center no IPPE) [code = MEDICARE ANNUAL WELLNESS (YEAR 2 or FIRST YEAR if no IPPE)] Future Scheduled 2021-03-[address]NUAL WELLNESS [facility] 00:00:00 (YEAR 2 or FIRST YEAR if Med ical Center no IPPE) [code = MEDICARE ANNUAL WELLNESS (YEAR 2 or FIRST YEAR if no IPPE)] Future Scheduled 2021-03-[address]NU[address] WE[address]NESS [facility] 00:00:00 (YEAR 2 or FIRST YEAR if Med ical Center no IPPE) [code = MEDICARE ANNUAL WELLNESS (YEAR 2 or FIRST YEAR if no IPPE)] Future Scheduled 2021-03-08 [address]NUAL WELLNESS [facility] 00:00:00 (YEAR 2 or FIRST YEAR if Med ical Center no IPPE) [code = MEDICARE ANNUAL WELLNESS (YEAR 2 or FIRST YEAR if no IPPE)] Future Scheduled 2021-03-08 [address]NUAL WELLNESS [facility] 00:00:00 (YEAR 2 or FIRST YEAR if Med ical Center no IPPE) [code = MEDICARE ANNUAL WELLNESS (YEAR 2 or FIRST YEAR if no IPPE)] Future Scheduled 2021-03-08 [address]NUAL WELLNESS [facility] 00:00:00 (YEAR 2 or FIRST YEAR if Med ical Center no IPPE) [code = MEDICARE ANNUAL WELLNESS (YEAR 2 or FIRST YEAR if no IPPE)] Future Scheduled 2021-03-08 [address]NUAL WELLNESS [facility] 00:00:00 (YEAR 2 or FIRST YEAR if Med ical Center no IPPE) [code = MEDICARE ANNUAL WELLNESS (YEAR 2 or FIRST YEAR if no IPPE)] Future Scheduled 2021-03-08 [address]NUAL WELLNESS [facility] 00:00:00 (YEAR 2 or FIRST YEAR if Med ical Center no IPPE) [code = MEDICARE ANNUAL WELLNESS (YEAR 2 or FIRST YEAR if no IPPE)] Future Scheduled 2021-03-08 [address]NUAL WELLNESS [facility] 00:00:00 (YEAR 2 or FIRST YEAR if Med ical Center no IPPE) [code = MEDICARE ANNUAL WELLNESS (YEAR 2 or FIRST YEAR if no IPPE)] Future Scheduled 2021-03-08 [address]AL [facility]NESS [facility] 00:00:00 (YEAR 2 or FIRST YEAR if Med ical Center no IPPE) [code = MEDICARE ANNUAL WELLNESS (YEAR 2 or FIRST YEAR if no IPPE)] Future Scheduled 2021-03-08 [address]NUAL WELLNESS [facility] 00:00:00 (YEAR 2 or FIRST YEAR if Med ical Center no IPPE) [code = MEDICARE ANNUAL WELLNESS (YEAR 2 or FIRST YEAR if no IPPE)] Future Scheduled 2021-03-[address] [facility] 00:00:00 (12+) [code = DEPRESSION Med ical Center SCREENING (12+)] Future Scheduled 2021-03-[address] [facility] 00:00:00 (12+) [code = DEPRESSION Med ical Center SCREENING (12+)] Future Scheduled 2020-09-[address] [facility]procedure[facility] [code = [id number]] Future Scheduled 2020-09-[address] [facility]00 [facility] (procedure) [facility] [code = 92475177] Future Scheduled 2020-09-[address] [facility]00 [facility] (procedure) [facility] [code = 12345574] Future Scheduled 2020-09-[address] [facility]00 [facility] (procedure) [facility] [code = 69085876] Future Scheduled 2020-09-[address] [facility]00 [facility] (procedure) [facility] [code = 76776754] Future Scheduled 2020-09-[address] [facility]00 [facility] (procedure) [facility] [code = 86153434] Future Scheduled 2020-09-[address] [facility]procedure[facility] [code = [id number]] Future Scheduled 2020-09-[address] [facility]00 [facility] (procedure) [facility] [code = [id number]] Future Scheduled 2020-09-[address] [facility]00 measurement (procedure) [facility] [code = [id number]] Future Scheduled 2020-09-[address] [facility]00 measurement (procedure) [facility] [code = [id number]] Future Scheduled 2020-09-[address] [facility] (procedure) [facility] [code = [id number]] Future Scheduled 2020-09-[address] [facility]00 measurement (procedure) [facility] [code = [id number]] Future Scheduled 2020-09-[address] [facility] 00[facility]:00 measurement (procedure) [facility] [code = [id number]] Future Scheduled 2020-09-[address] [facility]00 measurement (procedure) [facility] [code = [id number]] Future Scheduled 2009-11-11 SHINGLES VACCINES (1 of [...] [facility] 00:[facility]:00 [code = [id number]] [facility] Future Scheduled 1994-11-11 Lipid panel (procedure) [facility] 00:00:00 [code = [id number]] [facility] Future Scheduled 1994-11-11 Lipid panel (procedure) [facility] 00:00:00 [code = [id number]] [facility] Future Scheduled 1994-11-11 Lipid panel (procedure) [facility] 00:00:00 [code = [id number]] Medical Ce [facility]ter Future Scheduled 1994-11-11 Lipid panel (procedure) [facility] 00:00:00 [code = [id number]] Medical Ce [facility]ter Future Scheduled 1994-11-11 Lipid panel (procedure) [facility] 00:00:00 [code = [id number]] Medical Ce [facility]ter Future Scheduled 1994-11-11 Lipid panel (procedure) [facility] 00:00:00 [code = [id number]] [facility] Ce [facility]ter Future Scheduled 1994-11-11 Lipid panel (procedure) [facility] 00:00:00 [code = [id number]] [facility] Ce [facility]ter Future Scheduled 1994-11-11 Lipid panel (procedure) [facility] 00:00:00 [code = [id number]] [facility] Ce [facility]ter Future Scheduled 1994-11-11 Lipid panel (procedure) [facility] 00:00:00 [code = [id number]] [facility] Future Scheduled 1994-11-11 Lipid panel (procedure) [facility] 00:00:00 [code = [id number]] Medical Ce [facility]ter Future Scheduled 1994-11-11 Lipid panel (procedure) [facility] 00:00:00 [code = [id number]] [facility] Future Scheduled 1994-11-11 Lipid panel (procedure) [facility] 00:00:00 [code = [id number]] Medical Ce [facility]ter Future Scheduled 1994-11-11 Lipid panel (procedure) [facility] 00:00:00 [code = [id number]] Medical Ce [facility]ter Future Scheduled 1978-11-11 DTAP/TDAP/TD VACCINES ([address] [facility] 00:00:00 - Tdap) [code = [facility] DTAP/TDAP/TD VACCINES (1 - Tdap)] Future Scheduled 1978-11-11 DTAP/TDAP/TD VACCINES ([address] [facility] 00:00:00 - Tdap) [code = [facility] DTAP/TDAP/TD VACCINES (1 - Tdap)] Future Scheduled 1978-11-11 DTAP/TDAP/TD VACCINES ([address] [facility] 00:00:00 - Tdap) [code = [facility] DTAP/TDAP/TD VACCINES (1 - Tdap)] Future Scheduled 1978-11-11 DTAP/TDAP/TD VACCINES ([address] [facility] 00:00:00 - Tdap) [code = [facility] DTAP/TDAP/TD VACCINES (1 - Tdap)] Future Scheduled 1978-11-11 DTAP/TDAP/TD VACCINES ([address] [facility] 00:00:00 - Tdap) [code = [facility] DTAP/TDAP/TD VACCINES (1 - Tdap)] Future Scheduled 1978-11-11 DTAP/TDAP/TD VACCINES ([address] [facility] 00:00:00 - Tdap) [code = [facility] DTAP/TDAP/TD VACCINES (1 - Tdap)] Future Scheduled 1978-11-11 DTAP/TDAP/TD VACCINES ([address] [facility] 00:00:00 - Tdap) [code = [facility] DTAP/TDAP/TD VACCINES (1 - Tdap)] Future Scheduled 1978-11-11 DTAP/TDAP/TD VACCINES ([address] [facility] 00:00:00 - Tdap) [code = [facility] DTAP/TDAP/TD VACCINES (1 - Tdap)] Future Scheduled 1978-11-11 DTAP/TDAP/TD VACCINES ([address] [facility] 00:00:00 - Tdap) [code = [facility] DTAP/TDAP/TD VACCINES (1 - Tdap)] Future Scheduled 1978-11-11 DTAP/TDAP/TD VACCINES ([address] [facility] 00:00:00 - Tdap) [code = [facility] DTAP/TDAP/TD VACCINES (1 - Tdap)] Future Scheduled 1978-11-11 DTAP/TDAP/TD VACCINES ([address] [facility] 00:00:00 - Tdap) [code = [facility] DTAP/TDAP/TD VACCINES (1 - Tdap)] Future Scheduled 1978-11-11 DTAP/TDAP/TD VACCINES ([address] [facility] 00:00:00 - Tdap) [code = [facility] DTAP/TDAP/TD VACCINES (1 - Tdap)] Future Scheduled 1978-11-11 DTAP/TDAP/TD VACCINES ([address] [facility] 00:00:00 - Tdap) [code = [facility] DTAP/TDAP/TD VACCINES (1 - Tdap)] Future Scheduled 1978-11-11 DTAP/TDAP/TD VACCINES ([address] [facility] 00:00:00 - Tdap) [code = [facility] DTAP/TDAP/TD VACCINES (1 - Tdap)] Future Scheduled [...] HEPATITIS [facility] SCRE[facility]] Future Scheduled 1974-11-[address] [facility] virus screening [facility] (procedure) [code = [id number]] Future Scheduled 1969-11-11 DIABETIC EYE EXAM [code = [facility] 00:00:00 DIABETIC EYE EXAM] Medical C enter Future Scheduled 1969-11-11 Diabetic foot examination [facility] 00:00:00 (regime/therapy) [code = [facility] [id number]] Future Scheduled 1969-11-11 Urine screening for [facility] 00:00:00 protein (procedure) [code [facility] = [id number]] Future Scheduled 1969-11-11 DIABETIC EYE EXAM [code = [facility] 00:00:00 DIABETIC EYE EXAM] Medical C enter Future Scheduled 1969-11-11 Diabetic foot examination [facility] 00:00:00 (regime/therapy) [code = [facility] [id number]] Future Scheduled 1969-11-11 Urine screening for [facility] 00:00:00 protein (procedure) [facility] = [id number]] Future Scheduled 1969-11-11 DIABETIC EYE EXAM [code = [facility] 00:00:00 DIABETIC EYE EXAM] Medical C enter Future Scheduled 1969-11-11 Diabetic foot examination [facility] 00:00:00 (regime/therapy) [code = [facility] [id number]] Future Scheduled 1969-11-11 Urine screening for [facility] 00:00:00 protein (procedure) [facility] = [id number]] Future Scheduled 1969-11-11 DIABETIC EYE EXAM [code = [facility] 00:00:00 DIABETIC EYE EXAM] Medical C enter Future Scheduled 1969-11-11 Diabetic foot examination [facility] 00:00:00 (regime/therapy) [code = [facility] [id number]] Future Scheduled 1969-11-11 Urine screening for [facility] 00:00:00 protein (procedure) [[facility] = [id number]] Future Scheduled 1969-11-11 DIABETIC EYE EXAM [code = [facility] 00:00:00 DIABETIC EYE EXAM] Medical C enter Future Scheduled 1969-11-11 Diabetic foot examination [facility] 00:00:00 (regime/therapy) [code = [facility] [id number]] Future Scheduled 1969-11-11 Urine screening for [facility] 00:00:00 protein (procedure) [[facility] = [id number]] Future Scheduled 1969-11-11 DIABETIC EYE EXAM [code = [facility] 00:00:00 DIABETIC EYE EXAM] Medical C enter Future Scheduled 1969-11-11 Diabetic foot examination [facility] 00:00:00 (regime/therapy) [code = [facility] [id number]] Future Scheduled 1969-11-11 Urine screening for [facility] 00:00:00 protein (procedure) [[facility] = [id number]] Future Scheduled 1969-11-11 DIABETIC EYE EXAM [code = [facility] 00:00:00 DIABETIC EYE EXAM] Medical C enter Future Scheduled 1969-11-11 Diabetic foot examination [facility] 00:00:00 (regime/therapy) [code = [facility] [id number]] Future Scheduled 1969-11-11 Urine screening for [facility] 00:00:00 protein (procedure) [[facility] = [id number]] Future Scheduled 1969-11-11 DIABETIC EYE EXAM [code = [facility] 00:00:00 DIABETIC EYE EXAM] Medical C enter Future Scheduled 1969-11-11 Diabetic foot examination [facility] 00:00:00 (regime/therapy) [code = [facility] [id number]] Future Scheduled 1969-11-11 Urine screening for [facility] 00:00:00 protein (procedure) [[facility] = [id number]] Future Scheduled 1969-11-11 DIABETIC EYE EXAM [code = [facility] 00:00:00 DIABETIC EYE EXAM] Medical [facility] enter Future Scheduled 1969-11-11 Diabetic foot examination [facility] 00:00:00 (regime/therapy) [code = [facility] [id number]] Future Scheduled 1969-11-11 Urine screening for [facility] 00:00:00 protein (procedure) [code [facility] = [id number]] Future Scheduled 1969-11-11 DIABETIC EYE EXAM [code = [facility] 00:00:00 DIABETIC EYE EXAM] Medical C enter Future Scheduled 1969-11-11 Diabetic foot examination [facility] 00:00:00 (regime/therapy) [code = [facility] [id number]] Future Scheduled 1969-11-11 Urine screening for [facility] 00:00:00 protein (procedure) [code [facility] = [id number]] Future Scheduled 1969-11-11 DIABETIC EYE EXAM [code = [facility] 00:00:00 DIABETIC EYE EXAM] Medical C enter Future Scheduled 1969-11-11 Diabetic foot examination [facility] 00:00:00 (regime/therapy) [code = [facility] [id number]] Future Scheduled 1969-11-11 Urine screening for [facility] 00:00:00 protein (procedure) [code [facility] = [id number]] Future Scheduled 1969-11-11 DIABETIC EYE EXAM [code = [facility] 00:00:00 DIABETIC EYE EXAM] Medical C enter Future Scheduled 1969-11-11 Diabetic foot examination [facility] 00:00:00 (regime/therapy) [code = [facility] [id number]] Future Scheduled 1969-11-11 Urine screening for [facility] 00:00:00 protein (procedure) [code [facility] = [id number]] Future Scheduled 1969-11-11 DIABETIC EYE EXAM [code = [facility] 00:00:00 DIABETIC EYE EXAM] Medical C enter Future Scheduled 1969-11-11 Diabetic foot examination [facility] 00:00:00 (regime/therapy) [code = [facility] [id number]] Future Scheduled 1969-11-11 Urine screening for [facility] 00:00:00 protein (procedure) [code [facility] = [id number]] Future Scheduled 1969-11-11 DIABETIC EYE EXAM [code = [facility] 00:00:00 DIABETIC EYE EXAM] Medical C enter Future Scheduled 1969-11-11 Diabetic foot examination [facility] 00:00:00 (regime/therapy) [code = [facility] [id number]] Future Scheduled 1969-11-11 Urine screening for [facility] 00:00:00 protein (procedure) [code [facility] = [id number]] Future Scheduled 1965-11-11 PNEUMOCOCCAL VACCINE 0-[address] [facility] 00:00:00 YRS (1 - PCV) [code = [facility] PNEUMOCOCCAL VACCINE 0-64 YRS (1 - PCV)] Future Scheduled 1965-11-11 PNEUMOCOCCAL VACCINE 0-[address] [facility] 00:00:00 YRS (1 - PCV) [code = [facility] PNEUMOCOCCAL VACCINE 0-64 YRS (1 - PCV)] Future Scheduled 1965-11-11 PNEUMOCOCCAL VACCINE 0-[address] [facility] 00:00:00 YRS (1 - PCV) [code = [facility] PNEUMOCOCCAL VACCINE 0-64 YRS (1 - PCV)] Future Scheduled 1965-11-11 PNEUMOCOCCAL VACCINE 0-[address] [facility] 00:00:00 YRS (1 - PCV) [code = [facility] PNEUMOCOCCAL VACCINE 0-64 YRS (1 - PCV)] Future Scheduled 1965-11-11 PNEUMOCOCCAL VACCINE 0-[address] [facility] 00:00:00 YRS (1 - PCV) [code = [facility] PNEUMOCOCCAL VACCINE 0-64 YRS (1 - PCV)] Future Scheduled 1965-11-11 PNEUMOCOCCAL VACCINE 0-[address] [facility] 00:00:00 YRS (1 - PCV) [code = [facility] PNEUMOCOCCAL VACCINE 0-64 YRS (1 - PCV)] Future Scheduled 1965-11-11 PNEUMOCOCCAL VACCINE 0-[address] [facility] 00:00:00 YRS (1 - PCV) [code = [facility] PNEUMOCOCCAL VACCINE 0-64 YRS (1 - PCV)] Future Scheduled 1965-11-11 PNEUMOCOCCAL VACCINE 0-[address] [facility] 00:00:00 YRS (1 - PCV) [code = [facility] PNEUMOCOCCAL VACCINE 0-64 YRS (1 - PCV)] Future Scheduled 1965-11-11 PNEUMOCOCCAL VACCINE 0-[address] [facility] 00:00:00 YRS (1 - PCV) [code = [facility] PNEUMOCOCCAL VACCINE 0-64 YRS (1 - PCV)] Future Scheduled 1965-11-11 PNEUMOCOCCAL VACCINE 0-[address] [facility] 00:00:00 YRS (1 - PCV) [code = [facility] PNEUMOCOCCAL VACCINE 0-64 YRS (1 - PCV)] Future Scheduled 1965-11-11 PNEUMOCOCCAL VACCINE 0-[address] [facility] 00:00:00 YRS (1 - PCV) [code = [facility] PNEUMOCOCCAL VACCINE 0-64 YRS (1 - PCV)] Future Scheduled 1965-11-11 Pneumococcal Vaccine: [facility]:00 0-64 Years (1 - PCV) [facility] Center [code = Pneumococcal Vaccine: 0-64 Years (1 - PCV)] Future Scheduled 1965-11-11 Pneumococcal Vaccine: [facility] 00:[facility]:00 0-64 Years (1 - PCV) [facility] Center [code = Pneumococcal Vaccine: 0-64 Years (1 - PCV)] Future Scheduled 1965-11-11 Pneumococcal Vaccine: [facility] 00:[facility]:00 0-64 Years (1 - PCV) [facility] Center [code = Pneumococcal Vaccine: 0-64 Years (1 - PCV)] Future Scheduled 1960-05-11 COVID-19 VACCINE (#1[facility] [code = COVID-19 VACCINE [facility] (#1)] Future Scheduled 1960-05-11 COVID-19 VACCINE (#1[facility] [code = COVID-19 VACCINE [facility] (#1)] Future Scheduled 1960-05-11 COVID-19 VACCINE (#1) [facility] [code = COVID-19 VACCINE [facility] (#1)] Future Scheduled 1960-05-11 COVID-19 VACCINE (#1) [facility] [code = COVID-19 VACCINE [facility] (#1)] Future Scheduled 1960-05-11 COVID-19 VACCINE (#1[facility] [code = COVID-19 VACCINE [facility] (#1)] Future Scheduled 1960-05-11 COVID-19 VACCINE (#1) [facility] [code = COVID-19 VACCINE [facility] (#1)] Future Scheduled 1960-05-11 COVID-19 VACCINE (#1) [facility] [code = COVID-19 VACCINE [facility] (#1)] Future Scheduled 1960-05-11 COVID-19 VACCINE (#1[facility] [code = COVID-19 VACCINE [facility] (#1)] Future Scheduled 1960-05-11 COVID-19 VACCINE (#1[facility] [code = COVID-19 VACCINE [facility] (#1)] Future Scheduled 1960-05-11 COVID-19 VACCINE (#1[facility] [code = COVID-19 VACCINE [facility] (#1)] Future Scheduled 1960-05-11 COVID-19 VACCINE (#1) [facility] [code = COVID-19 VACCINE [facility] (#1)] Future Scheduled 1960-05-11 COVID-19 VACCINE (#1[facility] [code = COVID-19 VACCINE [facility] (#1)] Future Scheduled 1960-05-11 COVID-19 VACCINE (#1) [facility] [code = COVID-19 VACCINE [facility] (#1)] Future Scheduled 1960-05-11 COVID-19 VACCINE (#1) [facility] [code = COVID-19 VACCINE [facility] Center (#1)] Future Scheduled 1959 CT Colonography (combo) [facility] 00:00:00 [code = CT Colonography [facility] (combo)] Future Scheduled 1959 Screening for malignant [facility] 00:00:00 neoplasm of colon Medical Ce [facility]ter (procedure) [code = [id number]] Future Scheduled 1959 Screening for malignant [facility] 00:00:00 neoplasm of colon Medical Ce [facility] (procedure) [code = 055631068] Future Scheduled 1959 Screening for malignant [facility] 00:00:00 neoplasm of colon Medical Ce [facility] (procedure) [code = 824405856] Future Scheduled 1959 Screening for malignant [facility] 00:00:00 neoplasm of colon Medical Ce [facility] (procedure) [code = 425475390] Future Scheduled 1959 Sigmoidoscopy [code = [facility] S[facility]oidoscopy] [facility] Cent[facility] Future Scheduled 1959 CT Colonography (combo) [facility] 00:00:00 [code = [facility] ([facility])] Future Scheduled 1959 Screening for malignant [facility] 00:00:00 neoplasm of colon Medical Ce [facility] (procedure) [code = 796736334] Future Scheduled 1959 Screening for malignant [facility] 00:00:00 neoplasm of colon Medical Ce [facility] (procedure) [code = 684346632] Future Scheduled 1959 Screening for malignant [facility] 00:00:00 neoplasm of colon Medical Ce [facility] (procedure) [code = 948776959] Future Scheduled 1959 Screening for malignant [facility] 00:00:00 neoplasm of colon Medical Ce [facility]ter (procedure) [code = 850063503] Future Scheduled 1959 Sigmoidoscopy [code = [facility] Sigmoidoscopy] Medical Riche r Future Scheduled 1959 CT Colonography (combo) [facility] 00:00:00 [code = CT Colonography [facility] (combo)] Future Scheduled 1959 Screening for malignant [facility] 00:00:00 neoplasm of colon Medical Ce [facility]ter (procedure) [code = 454748669] Future Scheduled 1959 Screening for malignant [facility] 00:00:00 neoplasm of colon Medical Ce [facility] (procedure) [code = 660808749] Future Scheduled 1959 Screening for malignant [facility] 00:00:00 neoplasm of colon Medical Ce [facility]ter (procedure) [code = 672673201] Future Scheduled 1959 Screening for malignant [facility] 00:00:00 neoplasm of colon Medical Ce [facility]ter (procedure) [code = 867583907] Future Scheduled 1959 Sigmoidoscopy [code = [facility] Sigmoidoscopy] [facility] Cent[facility] Future Scheduled 1959 CT Colonography (combo) [facility] 00:00:00 [code = CT Colonography [facility] (combo)] Future Scheduled 1959 Screening for malignant [facility] 00:00:00 neoplasm of colon Medical Ce [facility] (procedure) [code = 866431984] Future Scheduled 1959 Screening for malignant [facility] 00:00:00 neoplasm of colon Medical Ce [facility]ter (procedure) [code = 878267565] Future Scheduled 1959 Screening for malignant [facility] 00:00:00 neoplasm of colon Medical Ce [facility] (procedure) [code = 497403788] Future Scheduled 1959 Screening for malignant [facility] 00:00:00 neoplasm of colon Medical Ce [facility]ter (procedure) [code = 685358634] Future Scheduled 1959 Sigmoidoscopy [code = [facility] S[facility]oidoscopy] [facility] Cent[facility] Future Scheduled 1959 CT Colonography (combo) [facility] 00:00:00 [code = CT Colonography [facility] (combo)] Future Scheduled 1959 Screening for malignant [facility] 00:00:00 neoplasm of colon Medical Ce [facility]ter (procedure) [code = 304081708] Future Scheduled 1959 Screening for malignant [facility] 00:00:00 neoplasm of colon Medical Ce [facility] (procedure) [code = 408081757] Future Scheduled 1959 Screening for malignant [facility] 00:00:00 neoplasm of colon Medical Ce [facility]ter (procedure) [code = 220604947] Future Scheduled 1959 Screening for malignant [facility] 00:00:00 neoplasm of colon Medical Ce [facility]ter (procedure) [code = 143077409] Future Scheduled 1959 Sigmoidoscopy [code = [facility] S[facility]oidoscopy] [facility] Future Scheduled 1959 CT Colonography (combo) [facility] 00:00:00 [code = CT Colonography [facility] (combo)] Future Scheduled 1959 Screening for malignant [facility] 00:00:00 neoplasm of colon Medical Ce [facility]ter (procedure) [code = 062182057] Future Scheduled 1959 Screening for malignant [facility] 00:00:00 neoplasm of colon Medical Ce [facility] (procedure) [code = 364236777] Future Scheduled 1959 Screening for malignant [facility] 00:00:00 neoplasm of colon Medical Ce [facility] (procedure) [code = 580353295] Future Scheduled 1959 Screening for malignant [facility] 00:00:00 neoplasm of colon Medical Ce [facility]ter (procedure) [code = 723304837] Future Scheduled 1959 Sigmoidoscopy [code [facility] Sigmoidoscopy] [facility] Cent[facility] Future Scheduled 1959 CT Colonography (combo) [facility] 00:00:00 [code = CT Colonography [facility] ([facility])] Future Scheduled 1959 Screening for malignant [facility] 00:00:00 neoplasm of colon Medical Ce [facility]ter (procedure) [code = 986851754] Future Scheduled 1959 Screening for malignant [facility] 00:00:00 neoplasm of colon Medical Ce [facility] (procedure) [code = 403532145] Future Scheduled 1959 Screening for malignant [facility] 00:00:00 neoplasm of colon Medical Ce [facility] (procedure) [code = 601823674] Future Scheduled 1959 Screening for malignant [facility] 00:00:00 neoplasm of colon Medical Ce [facility] (procedure) [code = 570531939] Future Scheduled 1959 Sigmoidoscopy [code [facility] S[facility]oidoscopy] [facility] Future Scheduled 1959 CT Colonography (combo) [facility] 00:00:00 [code = [facility] ([facility])] Future Scheduled 1959 Screening for malignant [facility] 00:00:00 neoplasm of colon Medical Ce [facility] (procedure) [code = 694265651] Future Scheduled 1959 Screening for malignant [facility] 00:00:00 neoplasm of colon Medical Ce [facility] (procedure) [code = 002256172] Future Scheduled 1959 Screening for malignant [facility] 00:00:00 neoplasm of colon Medical Ce [facility] (procedure) [code = 925228623] Future Scheduled 1959 Screening for malignant [facility] 00:00:00 neoplasm of colon Medical Ce [facility] (procedure) [code = 457580290] Future Scheduled 1959 Sigmoidoscopy [code [facility] S[facility]oidoscopy] [facility] Future Scheduled 1959 CT Colonography (combo) [facility] 00:00:00 [code = CT Colonography [facility] (combo)] Future Scheduled 1959 Screening for malignant [facility] 00:00:00 neoplasm of colon Medical Ce [facility] (procedure) [code = 788835023] Future Scheduled 1959 Screening for malignant [facility] 00:00:00 neoplasm of colon Medical Ce [facility] (procedure) [code = 525055175] Future Scheduled 1959 Screening for malignant [facility] 00:00:00 neoplasm of colon Medical Ce [facility] (procedure) [code = 930760837] Future Scheduled 1959 Screening for malignant [facility] 00:00:00 neoplasm of colon Medical Ce [facility] (procedure) [code = 365342830] Future Scheduled 1959 Sigmoidoscopy [code [facility] Sigmoidoscopy] [facility] Cent[facility] Future Scheduled 1959 CT Colonography (combo) [facility] 00:00:00 [code = CT Colonography [facility] (combo)] Future Scheduled 1959 Screening for malignant [facility] 00:00:00 neoplasm of colon Medical Ce [facility] (procedure) [code = 066254788] Future Scheduled 1959 Screening for malignant [facility] 00:00:00 neoplasm of colon Medical Ce [facility] (procedure) [code = 133300220] Future Scheduled 1959 Screening for malignant [facility] 00:00:00 neoplasm of colon Medical Ce [facility] (procedure) [code = 125483210] Future Scheduled 1959 Screening for malignant [facility] 00:00:00 neoplasm of colon Medical Ce [facility] (procedure) [code = 288432520] Future Scheduled 1959 Sigmoidoscopy [code [facility] Sigmoidoscopy] [facility] Future Scheduled 1959 CT Colonography (combo) [facility] 00:00:00 [code = CT Colonography [facility] (combo)] Future Scheduled 1959 Screening for malignant [facility] 00:00:00 neoplasm of colon Medical Ce [facility] (procedure) [code = 656540049] Future Scheduled 1959 Screening for malignant [facility] 00:00:00 neoplasm of colon Medical Ce [facility] (procedure) [code = 937099285] Future Scheduled 1959 Screening for malignant [facility] 00:00:00 neoplasm of colon Medical Ce [facility] (procedure) [code = 028356048] Future Scheduled 1959 Screening for malignant [facility] 00:00:00 neoplasm of colon Medical Ce [facility] (procedure) [code = 170048587] Future Scheduled 1959 Sigmoidoscopy [code [facility]] [facility] Future Scheduled 1959 CT Colonography (combo) [facility] 00:00:00 [code = CT Colonography [facility] (combo)] Future Scheduled 1959 Screening for malignant [facility] 00:00:00 neoplasm of colon Medical Ce [facility] (procedure) [code = 852288909] Future Scheduled 1959 Screening for malignant [facility] 00:00:00 neoplasm of colon Medical Ce [facility] (procedure) [code = 814173242] Future Scheduled 1959 Screening for malignant [facility] 00:00:00 neoplasm of colon Medical Ce [facility] (procedure) [code = 568549031] Future Scheduled 1959 Screening for malignant [facility] 00:00:00 neoplasm of colon Medical Ce [facility] (procedure) [code = 129833988] Future Scheduled 1959 Sigmoidoscopy [code [facility]] [facility] Future Scheduled 1959 CT Colonography (combo) [facility] 00:00:00 [code = CT Colonography [facility] (combo)] Future Scheduled 1959 Screening for malignant [facility] Test 00:00:00 neoplasm of colon Medical Ce nter (procedure) [code = 705510310] Future Scheduled 1959 Screening for malignant [facility] Test 00:00:00 neoplasm of colon Medical Ce nter (procedure) [code = 252034856] Future Scheduled 1959 Screening for malignant [facility] Test 00:00:00 neoplasm of colon Medical Ce nter (procedure) [code = 950754560] Future Scheduled 1959 Screening for malignant [facility] Test 00:00:00 neoplasm of colon Medical Ce nter (procedure) [code = 252959505] Future Scheduled 1959 Sigmoidoscopy [facility]code = [facility]] Medical Cente r Future Scheduled 1959 CT Colonography (combo) [facility] Test 00:00:00 [code = CT Colonography [facility] (combo)] Future Scheduled 1959 Screening for malignant [facility] Test 00:00:00 neoplasm of colon Medical Ce nter (procedure) [code = 183167406] Future Scheduled 1959 Screening for malignant [facility] Test 00:00:00 neoplasm of colon Medical Ce nter (procedure) [code = 162564321] Future Scheduled 1959 Screening for malignant [facility] Test 00:00:00 neoplasm of colon Medical Ce nter (procedure) [code = 855141873] Future Scheduled 1959 Screening for malignant [facility] Test 00:00:00 neoplasm of colon Medical Ce nter (procedure) [code = 064064187] Future Scheduled 1959 Sigmoidoscopy [facility]code = [facility] S[facility]oidoscopy] Medical Cente r Encounters Start End Encounter Admission Attending Care Care Encounter Source Date/Time Date/Time Type Type Clinicians Facility Department ID 2021-04-02 Outpatient READMISSIO ENCCLR ENCCLR [id number] ENCCLR 11:32:21 N 2021-04-02 Outpatient [address] [facility] ENCPL IBAN 2020 Encompa 11:23:39 amanda, 0120 leona [facility]ly [facility] d 2021-04-02 Outpatient [address] [facility] ENCPL IBAN 2020 Encompa 11:23:15 hez, 0119 ss [facility] [place] 2021-04-02 Outpatient 3 [id number] ENCPL REF Encompa 11:20:27 0112 [facility] [place] 2021-04-02 Outpatient 3 [id number] ENCPL REF [id number] [facility] 10:40:10 0925 [facility] [place] 2021-04-02 Outpatient 3 [id number] ENCPL REF [id number] [facility]a 10:37:41 0919 [facility] [place] 2021-04-02 Outpatient 3 [id number] ENCPL REF [id number] [facility] 10:37:29 0918 [facility] [place] 2021-04-02 Outpatient 3 [id number] ENCSL REF [id number] [facility] 10:29:18 6[facility] [place] 2021-04-02 Outpatient NEW ENCCLR ENCCLR [id number] EN CCLR 09:45:29 ADMISSION 2021-04-02 Outpatient [address] [facility] ENCPL NACHO [id number] Encompa 09:40:19 hez, 0422 ss [facility] [place] 2021-04-02 Outpatient 3 [id number] ENCPL REF [id number] [facility] 09:39:18 0420 [facility] [place] 2021-04-02 Outpatient 3 [id number] ENCPL REF [id number] Encompa 09:39:08 0419 [facility] [place] 2021-04-01 Outpatient Duval, STLMLC STLMLC [id number] Common 12:55:18 [place] [id number] [facility] 2020-12-13 Outpatient ROSS, [facility] Surgery [id number] [facility] 08:44:41 STAR 2020-12-12 Inpatient ROSS, [facility] Surgery [id number] [facility] 22:13:11 STAR 2020-12-10 Outpatient ROSS, [facility] Surgery [id number] [facility] 02:17:18 STAR 2020-12-09 Outpatient ROSS, [facility] Surgery [id number] [facility] 22:29:35 STAR 2020-03-27 Inpatient [address] 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 [id number] SLE 20:39:00 MARIO 2019-11-05 Inpatient ER RANDY RADHA Podiatry [id number] SLE 20:36:00 SARA 2019-06-14 Inpatient [facility] [id number] SLE 08:29:14 [id number] 2021-10-20 2021-10-20 Transition CHRIS Mcmahan 1.2.840.114 [id number] Univers 00:00:00 00:00:00 of Care Olayinka [facility]686 [facility] [id number] [facility] [address] 2021-10-19 2021-10-19 Emergency X SILAS [facility] [id number] Univers 15:23:00 17:58:00 LYLE ity [facility] 2021-10-19 2021-10-19 Emergency CacOralia yousif [facility] 1.2.840 .114 [id number] Univers 15:23:00 17:58:00 Lyle Canales 350.1.13.10 ity [facility] 4.2.7.2.686 [facility] [id number] [facility] 0[address] Branch 2021-07-01 2021-07-04 [facility] Beka Qureshi 1.2.840.1 [id number] Methodi 15:46:00 20:42:00 Encounter Tao Shepherd [id number] 3.430.2.7 Hospit a .3.220490 l .8 2021-02-26 2021-03-16 Inpatient ER DAV HERNANDEZ [facility] Surgery [id number] SLE 21:33:00 17:48:00 2021-02-26 2021-03-16 Hospital ER Sara Muniz [facility] [id number] [facility] [address] 21:33:00 17:48:00 Encounter Eleuterio Arceo, [facility] AriDav arreola Cent er 2021-03-12 2021-03-12 Surgery Hermes [facility] [id number] 10:30:00 16:05:[address] [facility] 2021-03-12 2021-03-12 Anesthesia Petr Grewal [facility] [id number] 10:34:00 12:57:00 Event Monica Lord [facility] 2021-03-05 2021-03-05 Surgery Shashi [facility] [id number] 10:02:00 13:49:00 [facility] 2021-03-02 2021-03-02 Surgery Hermes [facility] [id number] 14:00:00 16:07:[address] [facility] 2021-03-02 2021-03-02 Anesthesia Amanda Kenny [facility] [id number] [facility] 14:27:00 15:55:00 Event Evelyn Del Valle [facility] 2020-09-16 2020-09-16 Emergency ER [facility] Emergency [id number] SLE 18:17:00 18:17:00 2020-07-03 2020-07-03 [facility] [id number] Co mmon 00:00:00 00:00:00 VISIT EST Spir it PT LEVEL 3 - [facility] 2020-06-26 2020-06-26 [facility] [id number] Co mmon 00:00:00 00:00:00 VISIT NEW Spir it PT LEVEL 3 - [facility] 2020-05-27 2020-05-27 Outpatient EL SLE SLE [id number] [facility] 00:00:00 00:00:00 2020-05-27 2020-05-27 Outpatient EL SLE SLE [id number] [facility] 00:00:00 00:00:00 2020-05-27 2020-05-27 Outpatient EL [facility] [id number] [facility] 00:00:00 00:00:00 2020-05-26 2020-05-26 Outpatient EL [facility] [id number] [facility] 00:00:00 00:00:00 2020-04-16 2020-04-16 Outpatient Natalio HCAPM LABO [id number] [facility] 17:21:00 17:21:00 Oral 41 Lorrie leung [facility] 2020-04-11 2020-04-11 Emergency HAGAN, [place] [address] [id number] [place] 00:00:00 00:00:00 HAKEEM [address] 2020-04-07 2020-04-07 Outpatient Princess, HCAPM LABO [id number] [facility] 16:16:00 16:16:00 John 08 [facility] 2020-03-11 2020-03-11 [facility] [id number] [facility] 18:57:00 18:57:00 SARA 2020-01-06 2020-01-06 Emergency ER SLE Emergency [id number] [facility] 16:00:00 16:00:00 2019-07-14 2019-11-10 Outpatient RECERTIFIC NATALIO ENCCLR ENCCLR [id number] ENCCLR 00:00:00 00:00:00 CHIOMA SEARS 2019-10-16 2019-10-16 Outpatient SLEH SLEH [id number] SLE 00:00:00 00:00:00 2019-10-12 2019-10-12 Outpatient EL SLEH SLEH [id number] [facility] 00:00:00 00:00:00 2019-09-12 2019-09-12 Outpatient EL [facility] SLEH [id number] [facility]H 00:00:00 00:00:00 2019-09-10 2019-09-10 Outpatient SLEH SLEH [id number] [facility] 00:00:00 00:00:00 2019-07-14 2019-07-14 Outpatient RECERTIFIC NATALIO ENCCLR ENCCLR [id number] ENCCLR 00:00:00 00:00:00 CHIOMA SEARS 2019-05-10 2019-05-10 Outpatient DANISH, [facility] [id number] [place] 00:00:00 00:00:00 WILMER [address] 2019-05-10 2019-05-10 Outpatient DANISH, [facility] [id number] [place] 00:00:00 00:00:00 WILMER [address] 2019-05-09 2019-05-09 Outpatient DANISH, [facility] [id number] [place] 00:00:00 00:00:00 WILMER [address] 2019-05-08 2019-05-08 Outpatient DANISH, [facility] [id number] [place] 00:00:00 00:00:00 WILMER [address] 2018-09-08 2018-09-08 Outpatient ANANDA [facility] [id number] [place] 00:00:00 00:00:00 , ABRAHAM [address] Results Test Description Test Time Test Comments Results Result Comments Source COMP. METABOLIC PANEL (03063) 2021-10-19 22:19:35 Test Item Value Reference Range Interpretation Comme nts NA (test code = 6133795599) 137 mmol/L 135-145 K (test code = 3722027920) 4.3 mmol/L 3.5-5 CL (test code = 0607432036) 97 mmol/L 98-108 L CO2 TOTAL (test code = 7390593306) 26 mmol/L 23-31 AGAP (test code = 8651636146) 2-16 BUN (test code = 6351495619) 43 mg/dL 7-23 H GLUCOSE (test code = 2369423559) 159 mg/dL 70-110 H CREATININE (test code = 7.81 mg/dL 0.6-1.25 H 9955044729) TOTAL BILI (test code = 0.6 mg/dL 0.1-1.4 6713265319) CALCIUM (test code = 0381545722) 7.8 mg/dL 8.6-10.6 L T PROTEIN (test code = 0720638976) 7.8 g/dL 6.3-8.2 ALBUMIN (test code = 2626119508) 4.3 g/dL 3.5-5 ALK PHOS (test code = 9152617051) 97 U/L 34-122 ALTv (test code = 1742-6) 24 U/L 5-50 AST(SGOT) (test code = 0828894545) 34 U/L 13-40 eGFR (test code = 7569512611) mL/min/1.73m2 MITCHELL (test code = MITCHELL) Association [...] tests). Lab Interpretation (test code = Abnormal 05857-9) [facility] [id number] 21:18:48 Test Item Value Reference Interpretation Comments Range TROPONIN I (test 0.047 ng/mL See_Comment H [Automated code = 4826804085) message] The system which generated this result [...] biotin. Lab Interpretation Abnormal (test code = 95866-5) [facility] WITH [id number] 21:01:25 Test Item Value Reference Range Interpretation Comments WBC (test code = See_Comment [Automated message] 7990-2) The system Beamr generated this result transmitted ref erence range: 4.20 - 1 0.70 10*3/?L. The re ference range was not u sed to interpret this result as normal/abnor mal. RBC (test code = See_Comment [Automated message] 979-8) The system Beam[employer] generated this result transmitted ref erence range: [...] RDW-SD (test code 50.6 fL 38.5-51.6 = 97053-2) RDW-CV (test code 14.9 % 12.1-15.4 = 788-0) PLT (test code = See_Comment [Automated message] 777-3) The system Beamr generated this result transmitted ref erence range: 150 - 32 8 10*3/?L. The re ference range was not u sed to interpret this result as normal/abnor mal. MPV (test code = 10.4 fL 9.8-13 32366-3) NRBC/100 WBC (test See_Comment [Automat ed message] code = 0475240038) The syste m which generated this result transmitted ref erence range: 0.0 - 10 .0 /100 WBCs. The refer ence range was not u sed to interpret this result as normal/abnor mal. NRBC x10^3 (test See_Comment [Automated message] code = 7492817372) The syste m which generated this result transmitted ref erence range: 10*3/?L. The reference range was not used to interpr et this result as normal/abnormal . GRAN MAT (NEUT) % 71.5 % (test code = 770-8) IMM GRAN % (test 0.40 % code = 9131209237) LYMPH % (test code 14.8 % = 736-9) MONO % (test code 6.6 % = 5905-5) EOS % (test code = 5.5 % 713-8) BASO % (test code 1.2 % = 706-2) GRAN MAT 5.35 10*3/uL 1.99-6.95 x10^3(ANC) (test code = 8773945940) IMM GRAN x10^3 0.03 10*3/uL 0-0.06 (test code = 0062253279) LYMPH x10^3 (test 1.11 10*3/uL 1.09-3.23 code = 731-0) MONO x10^3 (test 0.49 10*3/uL 0.36-1.02 code = 742-7) EOS x10^3 (test 0.41 10*3/uL 0.06-0.53 code = 711-2) BASO x10^3 (test 0.09 10*3/uL 0.01-0.09 code = 704-7) [facility] [id number] 23:23:00 Test Item Value Reference Range Interpretation Comments POC glucose (test code 104 mg/dL 65-99 H Opera tor Name: Beatriz = 17015-2) Sandra ID: [id number] able: RN Notified Lab Interpretation Abnormal (test code = 47013-1) [facility] [id number] 23:23:00 Test Item Value Reference Range Interpretation Comments POC glucose (test code 104 mg/dL 65-99 H Opera tor Name: Ndekwe = 78452-3) JoannLuis Enrique ID: [id number] able: RN Notified Lab Interpretation Abnormal (test code = 56433-8) [facility] [id number] 23:23:00 Test Item Value Reference Range Interpretation Comments POC glucose (test code 104 mg/dL 65-99 H Opera tor Name: Inezwe = 48690-1) NahidKeonbessy ID: [id number] able: RN Notified Lab Interpretation Abnormal (test code = 84991-9) [facility] RBC, 2 [id number] 21:58:00 Test Item Value Reference Range Interpretation Comments Product name (test code Red Cells AS1 = 25) Leukored Irrad Unit number (test code = [id number] 4898185) Product code (test code C1039X17 = 3092) Dispense status (test Transfused code = 24) Blood expiration date (test code = ) Blood type code (test code = 308) Blood type (test code = O POSITIVE 1314) Compatibility (test code Compatible = 6400) [facility] 2 Ftprt8412-15-40 21:58:00 Test Item Value Reference Range Interpretation Comments Product name (test code Red Cells AS1 = 25) Leukored Irrad Unit number (test code = [id number]) Product code (test code O8496N35 = 3092) Dispense status (test Transfused code = 24) Blood expiration date (test code = ) Blood type code (test code = 308) Blood type (test code = O POSITIVE 1314) Compatibility (test code Compatible = 6400) [facility] 2 [id number] 21:58:00 Test Item Value Reference Range Interpretation Comments Product name (test code Red Cells AS1 Leukored = 25) Irrad Unit number (test code [id number] = 1396317) Product code (test code Q6141W58 = 3092) Dispense status (test Transfused code = 24) Blood expiration date (test code = 302) Blood type code (test 5100 code = 308) Blood type (test code = O POSITIVE 1314) Compatibility (test Compatible code = 6400) [address]2022-04-29 15:44:31 Test Item Value Reference Range Interpretation Comments Ventricular rate (test code = 253) Atrial rate (test code = 255) RI interval (test code = 266) QRSD interval [...] abnormality no longer evident in Inferior leads- [address]2022-04-29 15:44:31 Test Item Value Reference Range Interpretation Comments Ventricular rate (test code = 253) Atrial rate (test code = 255) RI interval (test code = 266) QRSD interval [...] abnormality no longer evident in Inferior leads- [address]2022-04-29 15:44:31 Test Item Value Reference Range Interpretation Comments Ventricular rate (test 92 code = 253) Atrial rate (test code 92 = 255) RI interval (test code 138 = 266) QRSD interval (test 88 code = 260) QT interval (test code 392 = 264) QTC interval (test code 484 = 265) P axis 1 (test code = 93 267) QRS axis 1 (test code = 59 268) T wave axis (test code 45 = 270) EKG impression (test Normal sinus code = 273) rhythm-Possible Inferior infarct (cited on or before 22-SEP-2018)-Cannot rule out Anterior infarct , age undetermined-Abnormal ECG-In automated comparison with ECG of 25-SEP-2018 17:48,-Questionable change in QRS axis-ST no longer elevated in Inferior leads-ST no longer elevated in Lateral leads-Nonspecific T wave abnormality no longer evident in Inferior leads- [facility]W-0 (COVID-19) RNA [Presence] in Respiratory specimen by NANNETTE with probe riswxrhfg8522-59-73 01:50:35 Test Item Value Reference Range Interpretation Comments SARS-CoV-2 (COVID-19) RNA Not detected [Presence] in Respiratory specimen by NANNETTE with probe detection (test code = 19955-0) Whether patient is employed in a Unknown healthcare setting (test code = 91705-6) Whether the patient has symptoms Unknown related to condition of interest (test code = 19207-1) Whether the patient was Unknown hospitalized for condition of interest (test code = 30673-1) Whether the patient was admitted Unknown to intensive care unit (ICU) for condition of interest (test code = 97568-3) Whether patient resides in a Unknown congregate care setting (test code = 44895-5) status (test code = Unknown 76064-4) Date and time of symptom onset Unknown (test code = 36833-1) [facility] ED Preliminary Interpretation - Not an [id number] 21:46:21 Test Item Value Reference Range Interpretation Comments MITCHELL (test code = MITCHELL) Beka Qureshi DO 07/01/2021 8:34 [facility] Preliminary Interpretation - Not an OrderPerformed by: Beka Qureshi DOAuthorized by: Beka Qureshi DO ECG reviewed by ED Physician in the absence of a paint mixer machine: yes Interpretation: Interpretation: abnormal Rate: ECG rate: 92 ECG rate assessment: normal Rhythm: Rhythm: sinus rhythm Ectopy: Ectopy: none QRS: QRS axis: Normal QRS intervals: NormalConduction: Conduction: normal ST segments: ST segments: Non-specificT waves: T waves: non-specific Lab Interpretation Abnormal (test code = 49251-2) [facility] ED Preliminary Interpretation - Not an [id number] 21:46:21 Test Item Value Reference Range Interpretation Comments MITCHELL (test code = MITCHELL) Beka Qureshi DO 07/01/2021 8:34 [facility] Preliminary Interpretation - Not an OrderPerformed by: Beka Qureshi, Authorized by: Beka Qureshi DO ECG reviewed by ED Physician in the absence of a paint mixer machine: yes Interpretation: Interpretation: abnormal Rate: ECG rate: 92 ECG rate assessment: normal Rhythm: Rhythm: sinus rhythm Ectopy: Ectopy: none QRS: QRS axis: Normal QRS intervals: NormalConduction: Conduction: normal ST segments: ST segments: Non-specificT waves: T waves: non-specific Lab Interpretation Abnormal (test code = 92995-8) [facility] ED Preliminary Interpretation - Not an [id number] 21:46:21 Test Item Value Reference Range Interpretation Comments MITCHELL (test code = MITCHELL) Beka Qureshi DO 07/01/2021 8:34 [facility] Preliminary Interpretation - Not an OrderPerformed by: Beka Qureshi, Authorized by: Beka Qureshi DO ECG reviewed by ED Physician in the absence of a paint mixer machine: yes Interpretation: Interpretation: abnormal Rate: ECG rate: 92 ECG rate assessment: normal Rhythm: Rhythm: sinus rhythm Ectopy: Ectopy: none QRS: QRS axis: Normal QRS intervals: NormalConduction: Conduction: normal ST segments: ST segments: Non-specificT waves: T waves: non-specific Lab Interpretation Abnormal (test code = 31040-9) [facility] ([facility]-sputum)2021-04-17 15:36:11 Test Item Value Reference Range Interpretation Comments Result (test code = No acid-fast bacilli 6463-4) isolated in 42 days AFB Smear (test code = No acid fast bacilli 38043-1) [facility]2021-04-17 15:36:11 Test Item Value Reference Range Interpretation Comments Result (test code = No acid-fast bacilli 6463-4) isolated in 42 days AFB Smear (test code = No acid fast bacilli 93837-4) [facility] (NON-SPUTUM)2021-04-17 15:36:11 Test [...] code = 994) seen Fungus culture + [id number] 00:16:15 Test Item Value Reference Range Interpretation Comments Result (test code = No fungus isolated in 6463-4) 28 days Fungus Smear (test No fungi seen code = 1406) [facility] [id number] 00:16:15 Test Item Value Reference Range Interpretation Comments Result (test code = No fungus isolated in 6463-4) 28 days Fungus Smear (test No fungi seen code = 1406) [facility] + [id number] 00:16:15 Test Item Value Reference Range Interpretation Comments CULTURE (BEAKER) (test No fungus isolated in code = 1095) 28 days FUNGUS SMEAR (BEAKER) No fungi seen (test code = 1406) FUNGUS CULTURE + [id number] 00:16:15 Test Item Value Reference Range Interpretation Comments CULTURE (BEAKER) (test No fungus isolated in code = 1095) 28 days FUNGUS SMEAR (BEAKER) No fungi seen (test code = 1406) POC-Glucose guncy6348-87-29 12:51:38 Test Item Value Reference Range Interpretation Comments POC-Glucose Meter (test 76 mg/dL 70-110 : TE STED AT [facility] code = 1538) [address] [facility], [facility] 30: Academic Affairs Assistant/Techni estefani ID = [id number] for Jewels Mendoza Lab Interpretation (test Normal code = 58196-3) [facility] [id number] 12:51:38 Test Item Value Reference Range Interpretation Comments POC-Glucose Meter (test 76 mg/dL 70-110 : TE STED AT [facility] code = 1538) [address] [facility] [place], 770 30: Academic Affairs Assistant/Techni estefani ID = [id number] for Jewels Mendoza Lab Interpretation (test Normal code = 46611-4) [facility] [id number] 12:51:38 Test Item Value Reference Range Interpretation Comments POC-GLUCOSE METER 76 mg/dL 70-110 : TESTED A T [facility] 6720 (BEAKER) (test code = [facility], 1538) [address]: Academic Affairs Assistant/Techni estefani ID = [id number] for Jewels Davies POCT-GLUCOSE [id number] 07:54:53 Test Item Value Reference Range Interpretation Comments POC-GLUCOSE METER 77 mg/dL 70-110 : [facility] ([facility]ER[facility] (test code = [facility], 1538) [address]: Academic Affairs Assistant/Techni estefani ID = [id number] for Sandie Wall Basic Metabolic [id number] 05:33:29 Test Item Value Reference Range Interpretation [...] (test code = 8.2 mg/dL 8.4-10.2 L 13181-9) EGFR (test code = 5 mL/min/1.73 [place] [address]-5) NOT ACCURATE CREATININE CLEARANCE IN PREDICTING GLOMERULAR FILTRATION RATE . ESTIMATED GFR I S NOT APPLICABLE FOR DIALYSIS PATIENTS. MITCHELL (test code = MITCHELL) Academic Affairs Assistant ID - KILO G Lab Interpretation Abnormal (test code = 89340-3) [facility] Metabolic [id number] 05:33:29 Test Item Value Reference Range Interpretation [...] (test code = 8.2 mg/dL 8.4-10.2 L 45546-7) EGFR (test code = 5 mL/min/1.73 [place] [address]-1) NOT ACCURATE CREATININE CLEARANCE IN PREDICTING GLOMERULAR FILTRATION RATE . ESTIMATED GFR I S NOT APPLICABLE FOR DIALYSIS PATIENTS. MITCHELL (test code = MITCHELL) Academic Affairs Assistant ID - KILO G Lab Interpretation Abnormal (test code = 29895-3) [facility] METABOLIC [id number] 05:33:29 Test Item Value Reference Range Interpretation [...] S NOT APPLICABLE FOR DIALYSIS PATIEN TS. Academic Affairs Assistant ID - KILO GVancomycin level, [id number] 05:18:50 Test Item Value Reference Range Interpretation Comments Vancomycin Rm (test 45.9 ug/mL code = 08797-2) MITCHELL (test code = Reference Range: No MITCHELL) NormalsOperator ID - DB [facility] centerycin level, [id number] 05:18:50 Test Item Value Reference Range Interpretation Comments Vancomycin Rm (test 45.9 ug/mL code = 60058-2) MITCHELL (test code = Reference Range: No MITCHELL) NormalsOperator ID - DB [facility] LEV[facility], [id number] 05:18:50 Test Item Value Reference Range Interpretation Comments VANCOMYCIN RANDOM (BEAKER) (test 45.9 ug/mL code = 523) Reference Range: No NormalsOperator ID - DBPOCT-GLUCOSE [id number] 21:32:38 Test Item Value Reference Range Interpretation Comments POC-GLUCOSE METER 92 mg/dL 70-110 : TESTED A T [facility] 6720 ([email or web address]) (test code = [facility], 153) [address]: Academic Affairs Assistant/Techni estefani ID = [id number] for Marjorie gtz Ramonita POCT-GLUCOSE [id number] 17:02:02 Test Item Value Reference Range Interpretation Comments POC-GLUCOSE METER 106 mg/dL 70-110 : TESTED A T [facility] 6720 ([employer]) (test code = [facility], 1538) 22430: Academic Affairs Assistant/Techni estefani ID = [id number] for Al Bibiana canadaia POCT-GLUCOSE [id number] 12:00:05 Test Item Value Reference Range Interpretation Comments POC-GLUCOSE METER 83 mg/dL 70-110 : TESTED A T [facility] 6720 (BEAKER) (test code = [facility], 1538) 64507: Academic Affairs Assistant/Techni estefani ID = [id number] for Michael n, Sandie BASIC METABOLIC [id number] 10:36:14 Test Item Value Reference Range Interpretation [...] S NOT APPLICABLE FOR DIALYSIS PATIEN TS. Academic Affairs Assistant ID - DBPOCT-GLUCOSE [id number] 07:25:42 Test Item Value Reference Range Interpretation Comments POC-GLUCOSE METER 77 mg/dL 70-110 : TESTED A T [facility] 6720 (BEAKER) (test code = [facility], 1538) 58855: Academic Affairs Assistant/Techni estefani ID = [id number] for Sandie Wall POCT-GLUCOSE [id number] 21:13:53 Test Item Value Reference Range Interpretation Comments POC-GLUCOSE METER 98 mg/dL 70-110 : TESTED A T [facility] 6720 (BEAKER) (test code = [facility], 1538) 96467: Academic Affairs Assistant/Techni estefani ID = [id number] for WILMER MCDUFFIE POCT-GLUCOSE [id number] 15:43:19 Test Item Value Reference Range Interpretation Comments POC-GLUCOSE METER 101 mg/dL 70-110 : TESTED A T [facility] 6720 (BEAKER) (test code = [facility], 1538) 98462: Academic Affairs Assistant/Techni estefani ID = [id number] for Indy Stevenson BASIC METABOLIC [id number] 13:17:24 Test Item Value Reference Range Interpretation [...] S NOT APPLICABLE FOR DIALYSIS PATIEN TS. Academic Affairs Assistant ID - JAQUELINE MPOCT-GLUCOSE [id number] 12:00:02 Test Item Value Reference Range Interpretation Comments POC-GLUCOSE METER 89 mg/dL 70-110 : TESTED A T [facility] 6720 (BEAKER) (test code = [facility], 1538) 95913: Academic Affairs Assistant/Techni estefani ID = [id number] for Cornel venegas, Indy POCT-GLUCOSE [id number] 08:08:40 Test Item Value Reference Range Interpretation Comments POC-GLUCOSE METER 77 mg/dL 70-110 : TESTED A T [facility] 6720 (BEAKER) (test code = [facility], 1538) 71224: Academic Affairs Assistant/Techni estefani ID = [id number] for Cornel footed, [place] POCT-GLUCOSE [id number] 23:32:15 Test Item Value Reference Range Interpretation Comments POC-GLUCOSE METER 84 mg/dL 70-110 : TESTED A T [facility] 6720 (BEAKER) (test code = [facility], 1538) 44464: Academic Affairs Assistant/Techni estefani ID = [id number] for KAREN REED AM POCT-GLUCOSE [id number] 17:21:27 Test Item Value Reference Range Interpretation Comments POC-GLUCOSE METER 111 mg/dL 70-110 H : TESTED A T [facility] 6720 (BEAKER) (test code = [facility], 1538) 11826: Academic Affairs Assistant/Techni estefani ID = [id number] for EMIGDIO MILIANITA POCT-GLUCOSE [id number] 12:58:04 Test Item Value Reference Range Interpretation Comments POC-GLUCOSE METER 74 mg/dL 70-110 : [facility] T [facility] (test code = [facility], 1538) 78097: Academic Affairs Assistant/Techni estefani ID = [id number] for ANKIT SMITH POCT-GLUCOSE [id number] 00:02:33 Test Item Value Reference Range Interpretation Comments POC-GLUCOSE METER 105 mg/dL 70-110 : TESTED A T [facility] 6720 ([facility]) (test code = [facility], 1538) 38517: Academic Affairs Assistant/Techni estefani ID = [id number] for FARHAN NINA KAREN POCT-GLUCOSE [id number] 15:46:51 Test Item Value Reference Range Interpretation Comments POC-GLUCOSE METER 77 mg/dL 70-110 : [facility] T [facility] (test code = [facility], 1538) 13591: Academic Affairs Assistant/Techni estefani ID = [id number] for ANKIT SMITH [id number] 13:53:39 Test Item Value Reference Range Interpretation Comments Phosphorus (test code = 5.2 mg/dL 2.3-4.7 H 2777-1) [facility] (test code = [facility]) Academic Affairs Assistant ID - DANITZA Wilson Lab Interpretation (test Abnormal code = 77455-9) [facility]:53[facility]39 Test Item Value Reference Range Interpretation Comments Phosphorus (test code = 5.2 mg/dL 2.3-4.7 H 2777-1) [place] (test code = [facility]) Academic Affairs Assistant ID - DANITZA L Lab Interpretation (test Abnormal code = 41098-7) [facility] 13:53:39 Test Item Value Reference Range Interpretation Comments PHOSPHORUS (BEAKER) (test code = 5.2 mg/dL 2.3-4.7 H 604) Academic Affairs Assistant ID - DANITZA LPOCT-GLUCOSE [id number] 09:32:21 Test Item Value Reference Range Interpretation Comments POC-GLUCOSE METER 76 mg/dL 70-110 : TESTED A T [facility] (BEAKER) (test code = [facility] [place], 1538) 42972: Academic Affairs Assistant/Techni estefani ID = [id number] for Santiago Shaw BASIC METABOLIC [id number] 04:51:29 Test Item Value Reference Range Interpretation [...] S NOT APPLICABLE FOR DIALYSIS PATIEN TS. Academic Affairs Assistant ID - BASSEM WCBC with platelet count + automated [id number] 04:35:39 Test Item Value Reference Range Interpretation Comments WBC (test code = 6690-2) 7.1 See_Comment [A utomated message] The system Beamr generated this result transmitted ref erence range: 3.5 - 10 .5 K/L. The refe rence range was not u sed to interpret this result as normal/abnor mal. RBC (test code = 789-8) 3.30 See_Comment L [Au tomated message] The system Beamr generated this result transmitted ref erence range: 4.63 - 6 .08 M/L. The refe rence range was not u sed to interpret this result as normal/abnor mal. MCHC (test code = 786-4) 28.9 See_Comment L [A utomated message] The system Beamr generated this result transmitted ref erence range: [...] See_Comment [Aut omated message] 777-3) The system Beamr generated this result transmitted ref erence range: 150 - 45 0 K/CU MM. The referen ce range was not u sed to interpret this result as normal/abnor mal. MPV (test code = 9.0 fL 9.4-12.4 L 24642-1) nRBC (test code = 413) 0 See_Comment [Aut omated message] The system Beamr generated this result transmitted ref erence range: [...] See_Comment [Aut omated message] 670) The system Beamr generated this result transmitted ref erence range: 1.78 - 5 .38 K/L. The refe rence range was not u sed to interpret this result as normal/abnor mal. # Lymphs (test code = 1.36 See_Comment [Auto mated message] 414) The system Beamr generated this result transmitted ref erence range: 1.32 - 3 .57 K/L. The refe rence range was not u sed to interpret this result as normal/abnor mal. # Monos (test code = 0.63 See_Comment [Autom ated message] 415) The system Beamr generated this result transmitted ref erence range: 0.30 - 0 .82 K/L. The refe rence range was not u sed to interpret this result as normal/abnor mal. # Eos (test code = 416) 0.77 See_Comment H [Au tomated message] The system Beamr generated this result transmitted ref erence range: 0.04 - 0 .54 K/L. The refe rence range was not u sed to interpret this result as normal/abnor mal. # Baso (test code = 417) 0.12 See_Comment H [A utomated message] The system Beamr generated this result transmitted ref erence range: 0.01 - 0 .08 K/L. The refe rence range was not u sed to interpret this result as normal/abnor mal. Immature 0 % 0-1 Granulocytes-Relative (test code = 2801) Lab Interpretation (test Abnormal code = 06221-2) [facility] with platelet count + automated [id number] 04:35:39 Test Item Value Reference Range Interpretation Comments WBC (test code = 6690-2) 7.1 See_Comment [A utomated message] The system Beamr generated this result transmitted ref erence range: 3.5 - 10 .5 K/L. The refe rence range was not u sed to interpret this result as normal/abnor mal. RBC (test code = 789-8) 3.30 See_Comment L [Au tomated message] The system Beamr generated this result transmitted ref erence range: 4.63 - 6 .08 M/L. The refe rence range was not u sed to interpret this result as normal/abnor mal. MCHC (test code = 786-4) 28.9 See_Comment L [A utomated message] The system Beamr generated this result transmitted ref erence range: [...] See_Comment [Aut omated message] 777-3) The system Beamr generated this result transmitted ref erence range: 150 - 45 0 K/CU MM. The referen ce range was not u sed to interpret this result as normal/abnor mal. MPV (test code = 9.0 fL 9.4-12.4 L 74748-9) nRBC (test code = 413) 0 See_Comment [Aut omated message] The system Beamr generated this result transmitted ref erence range: [...] See_Comment [Aut omated message] 670) The system Beamr generated this result transmitted ref erence range: 1.78 - 5 .38 K/L. The refe rence range was not u sed to interpret this result as normal/abnor mal. # Lymphs (test code = 1.36 See_Comment [Auto mated message] 414) The system Beamr generated this result transmitted ref erence range: 1.32 - 3 .57 K/L. The refe rence range was not u sed to interpret this result as normal/abnor mal. # Monos (test code = 0.63 See_Comment [Autom ated message] 415) The system Beamr generated this result transmitted ref erence range: 0.30 - 0 .82 K/L. The refe rence range was not u sed to interpret this result as normal/abnor mal. # Eos (test code = 416) 0.77 See_Comment H [Au tomated message] The system Beamr generated this result transmitted ref erence range: 0.04 - 0 .54 K/L. The refe rence range was not u sed to interpret this result as normal/abnor mal. # Baso (test code = 417) 0.12 See_Comment H [A utomated message] The system Beamr generated this result transmitted ref erence range: 0.01 - 0 .08 K/L. The refe rence range was not u sed to interpret this result as normal/abnor mal. Immature 0 % 0-1 Granulocytes-Relative (test code = 2801) Lab Interpretation (test Abnormal code = 26309-7) [facility] W/PLT COUNT & AUTO [id number] 04:35:39 Test Item Value Reference Range Interpretation [...] PERCENT (BEAKER) (test code = 2801) POCT-GLUCOSE [id number] 21:21:08 Test Item Value Reference Range Interpretation Comments POC-GLUCOSE METER 116 mg/dL 70-110 H : TESTED A T [facility] 6720 (BEAKER) (test code = [facility], 1538) 57709: Academic Affairs Assistant/Techni estefani ID = [id number] for CEDRIC SHAMEKA BLAKE POCT-GLUCOSE [id number] 16:51:43 Test Item Value Reference Range Interpretation Comments POC-GLUCOSE METER 97 mg/dL 70-110 : TESTED A T [facility] 6720 (BEAKER) (test code = [facility], 1538) 58907: Academic Affairs Assistant/Techni estefani ID = [id number] for ANKIT SMITH Type and screen, [id number] 14:48:00 Test Item Value Reference Range Interpretation Comments ABO/RH AUTOMATED (BEAKER) (test O POSITIVE code = 2260) Ab Scrn (test code = 890-4) [facility] [id number] 14:48:00 Test Item Value Reference Range Interpretation Comments ABO/RH AUTOMATED (BEAKER) (test O POSITIVE code = 2260) Ab Scrn (test code = 890-4) NEGATIVE [facility] [id number] 12:04:32 Test Item Value Reference Range Interpretation Comments POC-GLUCOSE METER 93 mg/dL 70-110 : TESTED A T [facility] 6720 (BEAKER) (test code = [facility], 1538) 99301: Academic Affairs Assistant/Techni estefani ID = [id number] for ANKIT SMITH SARS-CoV2/RT-PCR (Asymptomatic ONLY)2021-03-11 10:47:57 Test Item Value Reference Range Interpretation Comments SARS-COV2/RT-PCR Negative Not Detected, (test code = Negative, See 28579-9) external report for linked test SARS-COV-2 [facility] PERFORMING LAB (test code = 27735-2) [place] (test code = Negative result for [...] of the Act. Fact Sheet for Healthcare Providers:https://www.RingRang.Ukash/sites/default/f almita/product/documents/F act_Sheet_HC_Providers_L cno_AREK-OzB-1.pdf Fact Sheet for Healthcare Patients:https://www.VetCloud.com/sites/default/fi les/product/documents/Fa ct_Sheet_Patients_Ly_S ARS-CoV-2.pdf Performing Laboratory:[facility] [place] [address] [facility] (Asymptomatic ONLY)2021-03-11 10:47:57 Test Item Value Reference Range Interpretation Comments SARS-COV2/RT-PCR Negative Not Detected, (test code = Negative, See 71877-2) external report for linked test SARS-COV-2 [facility] PERFORMING LAB (test code = 84633-6) [place] (test code = Negative result for this MTICHELL) test determines that SARS-CoV-2 RNA was not [...] of the Act. Fact Sheet for Healthcare Providers:https://www.RingRang.Ukash/sites/default/f almita/product/documents/F act_Sheet_HC_Providers_L lam_KPGY-YpW-3.pdf Fact Sheet for Healthcare Patients:https://www.VetCloud.Ukash/sites/default/fi les/product/documents/Fa ct_Sheet_Patients_Lyra_S ARS-CoV-2.pdf Performing Laboratory:[facility] [place] [address] [facility] ([facility])2021-03-11 10:47:57 Test Item Value Reference Range Interpretation Comments SARS-COV2/RT-PCR (test Negative Not Detected, Negative, code = 0242826) See external report for linked test SARS-COV-[address] [facility] KE[facility] (test code = 6390391) Negative result for this test determines that [...] of the Act.Fact Sheet for Healthcare Prov iders:https://www.Lenskart.com/sites/default/files/product/documents/Fact_Sheet_HC _Vsjcvfqjg_Jzrf_VYTC-XnO-3.pdfFact Sheet for Healthcare Patients:https://www.Lenskart.com/sites/default/files/product/docume nts/Shik_Kmzzm_Uwzytivg_Vmye_EVYJ-ZiR-9.pdfPerforming Laboratory:[facility], [place] [address]YHXH-OHBAZTG METER 2021-03-11 07:26:03 Test Item Value Reference Range Interpretation Comments POC-GLUCOSE METER 81 mg/dL 70-110 : TESTED A T [facility] 6720 (BEAKER) (test code = [facility]ST[facility]PHINE Flannery [facility], 1538) 83689: Academic Affairs Assistant/Techni estefani ID = [id number] for ANKIT SMITH CBC W/PLT COUNT & AUTO [id number] 05:24:05 Test Item Value Reference Range Interpretation [...] PERCENT (BEAKER) (test code = 2801) POCT-GLUCOSE [id number] 20:58:34 Test Item Value Reference Range Interpretation Comments POC-GLUCOSE METER 123 mg/dL 70-110 H : TESTED A T [facility] 6720 (BEAKER) (test code = [facility], 1538) 79624: Academic Affairs Assistant/Techni estefani ID = [id number] for Melody Mcintosh POCT-GLUCOSE [id number] 15:56:05 Test Item Value Reference Range Interpretation Comments POC-GLUCOSE METER 88 mg/dL 70-110 : TESTED A T [facility] 6720 (BEAKER) (test code = [facility], 1538) 34413: Academic Affairs Assistant/Techni estefani ID = [id number] for NII MALONE CBC W/PLT COUNT & AUTO [id number] 05:41:29 Test Item Value Reference Range Interpretation [...] (BEAKER) (test code = 2801) BASIC METABOLIC [id number] 05:37:30 Test Item Value Reference Range Interpretation [...] S NOT APPLICABLE FOR DIALYSIS PATIEN TS. Academic Affairs Assistant ID - JAQUELINE MPOCT-GLUCOSE [id number] 03:58:58 Test Item Value Reference Range Interpretation Comments POC-GLUCOSE METER 90 mg/dL 70-110 : [facility] (test code = [facility], 1538) 06888: Academic Affairs Assistant/Techni estefani ID = [id number] for CARMEL PEREIRAE POCT-GLUCOSE [id number] 18:01:23 Test Item Value Reference Range Interpretation Comments POC-GLUCOSE METER 80 mg/dL 70-110 : [facility] ([facility] (test code = [facility], 1538) 09726: Academic Affairs Assistant/Techni estefani ID = [id number] for DAVID Jaime MARIOLAA Tissue [id number] 12:20:52 Test Item Value Reference Range Interpretation Comments Case Report (test code Surgical Pathology = 104) Report Case: [id number] Authorizing Provider: [employer] DPM Collected: 03/02/2021 03:11 PM Ordering Location: [address] Received: 03/02/2021 04:39 PM Service Pathologist: Liz Branham MD Specimen: Bone, Right achilles tendon/bone fragment for ID DIAGNOSIS (test code = o4kqgQJdLMIdz7cfZHMieY 3220) FuZzEwMzNcZnRuYmpcdWMx IHtccnRmMVxlcGljOTYwMV tnihWwGWLmkRBjD6Gdhupv LDqmHJ0dPI0vbLirjXHmlQ IvWVYtBaZij7lgj308aWIq s7amATHNzypzvZk9rCaoV4 5ll0W4XqqxE42meLXzERY1 KDRwQZXgnRJwBFUySXG9ID VwoSZqK0elBTOuDT3ctcbn LEhlFObkOWMnoOU0TEQimK CbZ5RmUXIcQVxzLEOspqp8 LbTuQm9rnTKvdXypPTrtIV HaGLJgFRysHRDtBuMxIX7r Gl4IZDkzWleJCXYkMXNBJI nRFMHoIEIQBY1UHEGRMGUY SURFTUVOVDpccGFyXHRhYi EnDDAXASCINS3VZUMYVAjY HQxOJRReF5sFHYINYRBEHW 5PUFVSVUxFTlQgRVhVREFU PS6zqTCcvKesvkSdHQbgc3 OjMGfgMEChAI7ftJkpBKSs LV7uNFGlX6ulcO4hoem4Ma AnXOUnPgQ2VTApxyQ4Ggp0 ONAmKQtom7wpn8TnNCDvKO u5uPpoVyRrBVBhk8fnduSz ZmNoYXJzZXQwIEFyaWFsO3 29x2ury7nsjmEauDZ0QYOk EYE0TYqevnAxinK2ZSachH JcOrA2ZFarxrNqHCrxjaMv kjBoFzj9EXDcM266EDX6jG ueq5opWAG3TGZlGWFfXrTl Ck2mpFVnN553QDTnYIWFPN DtzPn5HQOfmmCopxJhcQRU w730N278a2fmYUPbimImfP rMucswh1wqZ808SKSkvLWh uwKhUfXgXFOxnDJheEJ9CD JpLU7hnmjkONqjAEooBLYt tgF5RLYbbPVyO0DoXERnQY 2qpkrcTOT3YQleIQBnKNS5 NqGzYYBhx4Uhbcq5LnDswd 0dau03WYP2q0CblEgaKMO6 LLO7EpVlFi3ziMDcGPVfDO 9vKaFgrUIhAOYwno74gNzh FEroSIP1NMTunvKos7Plb0 phFiDaceUdU5jmR8NkQMRe AUYaTAMyKbOeuvRgj4Yic6 AzfDZtxKn8f6dwAEMhZJOh yYkpp9ftADV6GAAmuPMzD5 advJ6qZYKeTR2zmjmdo5hk BKapUAyjJUKixSF4wfV9RS KyhJYxQ8UajI5rUFWgEQgz UOBtidt5DvAyJk4mcMSydA cyMFxzYmtwYWdlXHBnbmNv bnRccGduZGVjXHBsYWluXH BsYWluXGYwXGZzMjRccWxc bGFuZzEwMzNcaGljaFxmMV cfIoExQHVpEQtjQ2lvFzEm VbQgBhh4UPQsvTFfPJEdUj b6RIWlnQZyPYCJoGfehF1e KFOvrFpktU0btEM2VUKqdq WrnWREdE3zXRZBeV8bXhV7 NgRbQhY6FHZ6PKoqiTPaaR 0= CPT Code(s) (test code y4fdtPOqXCBxzRS4GdAiFK = 3357) Twe1wvm3LfhLLtiPGlYNcz lPLlqtXgqc38mZP7mH33KI 2nFUJhOeL8JKXmpuB6Itt6 OVBtTBJyyWMnS792x6lry9 srgiEmzFR2cNkzPAXuqhde YcN5SBzeRKPalmnoUNs4QA zqBDEbmOM2UCDwhSHeY1Yx CQXfPJ1kxdl8JQJ0ZPlsGY NbLtE8BNFdwQNbVQJxkUzr VIbcc853HOC4ZvPlGIHsrr TzkNxweZ7eTqEdPDU6YLWa NSwgODgzMTFccGFyfQ== CLINICAL HISTORY (test y3wibMJzEHYzpSO7NgXnPI code = 3021) Tem8vyn4SlwELaySDxVIzk zQVgxnAutv45oON2eP01WR 0fLWHwThY2PJJkqeA5Sob9 FATnJYVfaLHxQ760a2hqz0 schiUllZP6JNQqRVY2HSab pqHlbcC4MOhpgTUnWeO6B3 xyZWQwXGdyZWVuMFxibHVl EFd9GRLerVGqqxExZxWdQI DluIJrqBP3SBEoNH1tdqcb PQsyJTouMIScikZ1UHPthL SzJ4KoZIPhQO9vahwkGCH5 MSypMHBwCHP6ZeKiTOSzr5 Fmpgi5NcPnuHVca2LnRAOu S9OkKPF1s3BbdXJleJLvkT Jpo7t7fnMmXIYnfHLrjNZo YWRkbDMwXHRycGFkZGZyM1 m8zhNxXMJaEoBuxPXtPQUg ZmIzXHRycGFkZGIxNVxjbG IwdQO0QXuybMUiDZX0QXVc RVJey98oEWWfRdXhnqfgRf Qmpo9takMwF7xpncDprukb cvKtal3xMOemlYBvQVGqEZ MtUQEeh57yJDUghdEokYWe gKobvHJ4h0ndPWScK4sdrF bIeMK3uYD2DVgjBFsisGY3 CLrmcBImbMK6FZbkuVQfVL G8XKUmSUYcx93ySOQyLkBm cuowMkDsdp9yrjLbK3nsym WhibitrzQqva2sMAelzQDf CCTcSEOxFKWkz36qCKCxyy HfpXHydQsksJK1x7xiKHNh G4cmiSgQdRA4dUr6PjKaV5 SrdMwzLDG7ZHjsIMCfGCsj dGJsXHFyXGxpMVxyaTFccG qbgB5wLfRyIQqaKjWuY0Ah bFxwYXJkXGludGJsXGxpMV qmmNXeLZI7nCXfaKOcHRIh R8Dol1CoWE6fnLCjqSmbzD q6bOQmk1MkbymgxZHxGn5e dFxjZWxsXGludGJsXHJvd1 xwYXJkXHBhcn0= SPECIMEN SOURCE (test m0bcvMGwDMEvqLB8KpVyAY code = 3377) Nxg5snf5SxhDTidNTzLWhl iIWntoZggl38uJO5hM21UM 1pVDOvFuO2YOKkcfQ5Ufi8 CFXxEHArjEQpW459x9rcr6 hqdyExbHS6QBSiYWEzR3Br DL1pPMXeqDJlL6xdNMXcPW EyC9IfLN3rLWKuLnb2IXJ2 AMo4NILihIOcgwQxPbKeUQ HqmFYfwAQ7QPFcRL3vreun BMmhREzlCTDxyfC7PFYjxB DsD9CcSLPgNG0ixodwEJQ5 WApiEPNlTAM7ThFaLVKje9 Taxxz2EmQygYMgILabqISy javpLMcobkOvlMnzyS7fQg BsZPycReYwO8caXrTacJIl Ex9rSHuyZYW5 GROSS DESCRIPTION (test i5amiHOaJCBpkMRfGhMtFI code = 3366) OpQKKek7smKOJdxVGaAgHw MzNcZnRuYmpcdWMxXGRlZm Xgl2kqr467lDDrx1qbMRPh HwO1sRXuOQGyzUMwK974WU RbTJipe0nrt8JxLMKbvWVr c2C2WHDFwwxafKt9hTyiI4 1kd5Z9ZohjD2fnLRYbQETq C7NgBJ8dENTrDmy8PSE8TP V9BMVjOTVfW2EcIC6wIEBc xUEmXPg6b7rynMxnFWJbFC E7i2mtJAwdwmAtSU8osy7q jDd1h3sbvwHkDLClXIGrsV SEOTCzT5ApbKmaPo9ixJi5 tSqyIkyxMWL5Gtq8QF6mso 86xii0dNjhVWUyiwlcFiE8 CEbrKUGcmaqgUIc2VLuyFD JnbDcyMFxtYXJncjcyMFxt YXJndDcyMFxtYXJnYjcyMF jkFTRoXOK3OVako121YUD2 TGvlg6vxx7rvzUMyIev4AB MpAdNjPeasRQqzv3Ckt7bd QUFpyh5lIAR8bXFatCtqd0 P1qOCvZHTrcFZpnsYwUWTq QoV3VObjBU9wsx14RGEnXW Y1gf7ciYLtgAywlgSsoRSi HCbcK9EnWJMji725FIYhA9 LzKAUsc1K9jqNnDyHoJIPc aWG4fkD6WIKhATd3fCAxrh Y5daSckBEzE7yfqW35ZdOr eUElA1PcnY55ZbDmwLCkY0 MpeG88ZkPjkKTiS4NqxQ41 YzPrpMKtJUZufCJcTh6ibB JooXUln1GktWRgGFqqF58i d751RIUtocReP2yixBNiso lxqYNnegjdFVcmhpA9SEBh XHBsYWluXGYxXGZzMjBcbG FuZzEwMzNcaGljaFxmMVxk OcFnCEKyVJdlE6sfMgLlKa MyMCBSZWNlaXZlZCBmcmVz aCBsYWJlbGVkIHRoZSBwYX XbNZ02G1UtjwBrPNsuAMMb XHDyxH2xQH67oTYlnaVpja JvHqVuM6u8HYYptJvnkAFz ZKUjksFkib3ys56mETExCV isRJ98FfKwgjAmPdCghvHp iPEvpDJxg7GccZFzRPQkYZ wgdHJhYmVjdWxhdGVkIGJv yiPwn9g8xTBjFLnkqeJfdW OhsrWafl6xgAOkufymdqOq ly96aPEib8xquhGwkhZcl3 9poHR8iMKarHHupuSbB8rs OaXjom5xHGAmMD6zLtAwI3 3jkU5rB3IoNGXir8AmCTnp WK4dvC0dRkEpPZijWXM2lJ PtnPBtEAHsECjhFKVdkv32 WGqyo4aePCFuQJDdD7TqLM AqFZBtvyCoCrbubJ6xDKRr cEXyl7LspGQ6xKBcLFFcD2 Mvy92zKMFrMJFdbFRtmMF8 EWSrLUDhYs5duA96xlcfbG RlJBKkexABCPO6hL8hQHIb DXIkbCFjMTTsUYM3OVPgxA wgRUVjx46iZQEaKBktJN87 uyVkm7ygz4gcrhulOFUoXS frgAOsM7E5gE6wIFVjghJZ He2lz5lqPCUwBGEst7P7AT Wam5J7JDjuKAHuxRSiUGPp lDFsNXOtG1YjoUdximroPX KnNPyHHSzYZ1YDNGtoSNS2 MICROSCOPIC DESCRIPTION d4hveQOpPIEvnRU9FxVmXJ (test code = 3371) Oxy9nty0KwrGHdlPPqABvu nRInbpXbjs16uGB0iD72OB 7fAJHzOtY9HSUrecX4Xkm5 AGJnJCLlnHPqC400i1ued6 iwttIudCT9jGqzTOKnoirg UoH9DCjnNAJausmzHQu2MR qbZZLevVN1QFRvaBCyL9Ue NWMfBR7optb1PAV2BGrjVW TnCbO4PWRpdXCeOQWarCqv XVtun961NFB8SdDcQPDljx UymVljhV4fLqEcHBBDBXVh m9KjDZTkXUJecu6= SPECIAL STUDIES (test q6xcdTDeIBKgp6ztKZItfA code = 3376) FuZzEwMzNcZnRuYmpcdWMx PAnuojHaMPcbq9JyE5PmPr AwMFxhbnNpXGRlZmxhbmcx LGMqKLB2qbRdXRXxJOqyER KyGFxvAd0wmMImqFsjEtYn HFUxp0fmmhAGhdlmsWf9f2 voNJZsJbG2sTScIXjhF9xb zkVznUNfB9UgaPEexNr1h4 qzTcVgAmX0dEEaJNykI2by gcSnkMHxQEFoIJb7mK26UX XlsW3zeSSaXNzogaHeQlV3 RFriGRVsWbH1PMHnlDCsBV GwR7qkOFYeOTjuCZJnVXep oNYvTUV0xIvmc6N5oIAylK RklTljDdHpLkSdXlJXw7Kr AUm6sEqdB0EuTWSnFkI5oV QgUGFyYWdyYXBoIEZvbnQ7 yPidypTew55juHJrVZQfEY BzBxIcnOgxZBTrYITDe3Lj dAtiYTF1tKp6xZdzIorhYA Z8Jck1GW9ers40zro9iIwb UTDvsutfGmZ6FAenDRJxmu eeFWh9ONuvZTOmpIZ6QQLa oKQhP0ZtAQQvTN7saiz3PT I4BTonHMDtKkV4COBfyJGr OJFkqJpzKKvzi588HKE0Dq OvFJ5bG5Avm4P2lJ8hpTNt ERBmyVPiBuXgFZIbje8czG WyUGogq7ClVPR8enF8eIVk jGIpDCYrNM89Uzmya6DjSs lqw9IoD22irWX6SCrri9rd BM6tIrO0uuWeKZvfw1gzvL 5mYdQ3RIkpFK2pRL9gZFYp qX1dlpvhNKUaZvAftsvmGL BvqLjcrtHrGk4zgFheWJQ0 EMsdV1aegA0jQyL7PKczO2 jflF3xTQb8RHfmfKB8JKXk bY0kTY9cvfwpf5zwUEseEB geAPZnhmP0raI9MSWtxMQq Z4RcbM9uJCOgBA2gmprgu5 ewWIH4BOafYGGxBGK5GcCo RARsh6Sllho3SjIad1XlwH CcTTrtF05ml921PIEaojZh O3ebsDNvdhkoeQMdbpjkRB aidkS4VDKpWFNnZJxaEGTq XGZzMjJcbGFuZzEwMzNcaG ljaFxmMVxkYmNoXGYxXGxv N9jcEkBeJ3BgFQAqAuSxFL okINwdsCGtbSCjoQV3hS7x FC9cDHTvcXRqP8NuCNTbuc LmqSWxIQZ1gVXzsQVfSG9v KYtegTNko1kpw7WwD4kcwZ cogJL5KE3aZYEyNQJwLJqq i2UxiH0dWqnnxIMekqbmYY xmczIyXGxhbmcxMDMzXGhp L0bmHlLxAQGbuHyaBKlff4 NoXGYxXGNmMlxmczIyXGx0 cmNoXHBhclxwYXJccGxhaW 0oUtOdHhZnSmtnBG8rXREo O5zarWKpBLFaGGKuZ1lgEs ReaH5ihOilSKcjKwCaUcPv KdBVo714uo3bNVGsfWQurl NCdDZdeA1dRDvcNMywUFsw nJGyLIzul7lgAVIyn6e3wB MxAKKonoShp0ueJFzuedBt GQGgmSCeoXTjAEVcu80dKZ bbpObuePtlRVCvw8HviWyu i1WbLePeXPjev4OyH99hoH JvbCBzbGlkZXMgcnVuIGFs c36bh1gdYRCcEsZ1gXIerG R1xFKzqNHth5GawCbhHOKb v8qnHXNwbe1tggpfxWTxq5 JghG1tjmkpEFmarGLobqVm CXIgd1h3kFGhCXYaITWwCE dkvDj2VTTjh166vf7vqbA8 pPLxMXJ5NVhcHRPvXUZfxf UgZXZhbHVhdGVkXHBsYWlu XGYxXGZzMjJcbGFuZzEwMz NcaGljaFxmMVxkYmNoXGYx RBsaA7wuMoYqE4YnKYJgLy LiqHDbB7pkeCFcNWZeUMsp XGYxXGZzMjJcbGFuZzEwMz NcaGljaFxmMVxkYmNoXGYx UDtbI8qyGqWoR9KxSJKqKs IgIFxwbGFpblxmMVxmczIy KLecjxryDWUhQJbgX7gfCh IgHAGkgAbwNLrmf0CiSZFf NNAbHwqxtxHdFXv1wnNuNF BhclxwbGFpblxmMVxmczIy FZhipuxsVMWeHItrC6cjFv AcBRKswQllFUapx7RiBIVp XGNmMlxmczIyIEltbXVub2 uzi3TiK1nhaOgvxRP9WZMh I1xakLXxmEX8UCD8sN9wID uywnCxOHGie4LnIXBhRBYx TrW4kD1nTOV6HtQUiXtuPK BsYWluXGYxXGZzMjJcbGFu ZzEwMzNcaGljaFxmMVxkYm KbDLGqWAheP2nuZlNbZ7Ep RRMjIzIpwXrlYKlaCJg0Sf xwbGFpblxmMVxmczIyXGxh qahvSKKbNLtaD7xuRrJtNA TpsXskZOrjf6ZjWCRoPVMt MlxmczIyIHMgTWVkaWNhbC UPTQ84PONlBKVtjAbniY1v jFQADDOmugA2n6A0XEbvVA ArSYv4NEbgwhIaCVLaeN1c VMSiDU2mRVe7fiAaUCWgv7 TkTT3xSIVyjQYnMXR6LZSo u8TaY7Oql7DpFLOtPNRmru 0grzDaNeNQiDWqRFHvmz75 WKPeTJ9oT2xgUFUbXJBxux VowKQnq8YlZZEezPE5wFXt QN1HVjJCc46dCRNsXMCRmt DcASXftMjaiRF8cvT6oU6x LiBUaGUgRkRBIGhhcyBkZX Ahyf4xuwIaDRIjSMXrh5Ef zNMvdMIywaIxR3Fpj9XfTZ Qhpq01HMolbFYqcq50PM4n W2Sow0EkgK4jNYrxPVXda2 XxaBJvkDIsHCTtk1McS2di mgqqTYmljHTnuQ4vDESsVR y6IZUhw3FjUBPyg1NwVtFo zdZiFJSgSWFcEGZocA23BR J0hVnodElvmoEeRO5bUERq xeBiDGRlCBVpfF5sJQaseh KbBQJbsdF0z2M9HYpvAXYq wyXlUzetTQX8bfQtrdU1jC QnP9fflsyvYMlxWGZvf2Cr wO8whCEGfMZec9YxiCGtnK PRrZJwXF0bhqZwAW2eYFN6 ODggKENMSUEtODgpIGFzIH L7EXuuVfzmLEO2ylXoIRLt p8SwROngI2jnY41qjRrnlQ o2kBRdiPproXGbdQOhRONe vjU1x0F7CCBhh7OvjbduVH BsYWluXGYyXGZzMjJcbGFu ZzEwMzNcaGljaFxmMlxkYm MqHEPeAFazH1coSpRmPwIi SfogHHI2nT== Gross assessment was [facility] performed at ([facility], = 2777) Department of Pathology, [address] [place] [address], Technical component was [facility] performed at ([facility], = 2778) Department of Pathology, [address] [place] [address], Professional component [facility] was performed at ([facility], code = 2779) Department of Pathology, [address] [place] [address], [facility] [id number] 12:20:52 Test Item Value Reference Range Interpretation Comments Case Report (test code Surgical Pathology = 104) Report Case: [id number] Authorizing Provider: Star Cloud DPM Collected: 03/02/2021 03:11 PM Ordering Location: [address] Received: 03/02/2021 04:39 PM Service Pathologist: Liz Branham MD Specimen: Bone, Right achilles tendon/bone fragment for ID DIAGNOSIS (test code = [id number] 3220) FuZzEwMzNcZnRuYmpcdWMx IHtccnRmMVxlcGljOTYwMV olkbWrCKFlxTFlC5Mtxidt TSvaOX2rUS9ouZtalLCasY YmSVBfJuLvb1lyj366vYKv c3ncYIMZbocoeBi9eZbnZ7 2uu8J8HjbqH80daRSlXAU6 UKEyUWWchYFhJDRaBTH0QQ CxkQWyE1zjTNLoFT1xeyph HWgsNZoiMEPexGD1MHNfrG GnI8PkQBVaXKlcGUJyrqz5 UaRsHu2ykLBvzJdmTBomDL QiEJVrOOqgXJUoAwXiXO8r Lz6FFHncRhgNQUVnJLWWHI uIUGBgJFWQIT8VQVBSYXRU SURFTUVOVDpccGFyXHRhYi ZcBIJSKMTDBP7UHJROCWtE XCbPEWLbT4nTOVDUPMFMWP 5PUFVSVUxFTlQgRVhVREFU DC2afTEsaYqnnfNvBVxtw0 DfJCrnVUHaTJ6pwIpvRCZa IE8mXUEuX1nkvW8nbrg0Ih RaZHNuLjF4GSRrrzE8Zjw5 DNHhNOnsl4hef6RiDZEnYI n3rCujIdPdNLGoj9hwjjCg ZmNoYXJzZXQwIEFyaWFsO3 87a3jgh2nxzcFfrUV8VTZe XIZ8BKcnwvIkenF7RYffmS DtIhQ0GZhoqbYyECzfkcTz lkOiVen0GZMsI235LLX8tV wvd7zaCVN0AMJaQDCoZxKr So6wfGSkK958RJSgOBRZPJ TyxVj0EABednFkujUouNGV m566H193a4epUYOzsgNnkH eHanabd1jmX663UJSyxZQe awBfBlBoXUGmxYGncMZ0HD HiLF9qqoqpSOqeQFgcTHYa itU0KKRcjQZxN9RcLNDdJK 0fqavmWPY6FWrkYZLvLRK6 JsTzOAKlt0Etoqb1WkQzqp 1qxh87SCQ0y3NpfMlwUQT4 IUM3MtQvVg1baHJhDXJzZX 5tMeYwlIXiYYTbrt77bNbw AAnxWUF4RXGsltCzp7Rve6 paPkFbrpGoW0bgZ0JzEBZf FVBkOCGxPkIukmQau2Pgl5 RuuTZnuUb4e8keCQVqCRKt nUmot9yrCNY4IUOptAAoJ7 hwkF7gDCVoQA9fuefbt7es ILznKYpoGMEvlOJ0nmM6VU TptEDaZ0DxxJ7uDISmCYpv KREuthb9VyIiEu9wzDDmyF cyMFxzYmtwYWdlXHBnbmNv bnRccGduZGVjXHBsYWluXH BsYWluXGYwXGZzMjRccWxc bGFuZzEwMzNcaGljaFxmMV ddWiFzDZNcOYffX1lwCgMu IgFvNll0NXIkgJVeHVJtSp r0WLWwtJDvDAJHhQcaoX6g URVipKzjgZ9fdOS3ZFVnet RmqWVYeD7zMCJVjX0nQvS4 JtTiJaN1RLW2YPsczXYjbW 0= CPT Code(s) (test code e6yoxHJuNFHhoMK8TgAkKN = 3357) Frr9hfv6NlnNLjrOUbYDac qPIggyClfp90jHA6zX19GE 0zSUZoNbP5WFRvopL2Pkv6 XEDpEZBbhBJcD029r9lpy1 mtuwLqnXK1fUvmKXZpzede AiD2QFvcJHUammufEDk7DR toWZEcnOA7QLQgoNHcO0Bk YDReLH4uvyi1QNM0VNeeBK UlWpM6QMHbxFCjOACpaYdt IUusw333XYA4CjYqRFKtmc HdcVduvM2yFeWjMQV3FQFs NSwgODgzMTFccGFyfQ== CLINICAL HISTORY (test y3cbwLJiRYMeeOW4MpUdWT code = 3357) Bki5rqq1ShuMTqxQBhHSob oHTtdbKixe41dHE9pA00CJ 0wFFAuTsH0LWOrcnZ8Rxn0 QNYdPEBiaAMrW454h0sma9 nkvrQhnCF8YXOpTIR1RAvy wfBvqiA0HQwdkZJyNlS7V4 xyZWQwXGdyZWVuMFxibHVl JVd0QTWxsXPzhgInZoPiQH NhzWIrkWV9AROpFI2ncdnv COilXDxgIUFotxV2WYQqxW OdP1PrTHGqHF4wpueuQUX0 QDqwWEKsEQK6OpPiWCXhb0 Mkgkt1CxJccHYlr6AeYJGq E8ToJCC5c9QvjNAxzRBrhS Evw0v3ikBmRPFbeWDlxOIh YWRkbDMwXHRycGFkZGZyM1 d3upRbYAYqFlMvfWPzEMPc ZmIzXHRycGFkZGIxNVxjbG IbeWU5LDxueYZfWIX0KLRf SZGuk74mKYBrOxXsgqmaKr Blmg5dydLaD0infcYtnzwl ppYnuw5cWBysxKZxCYKlMH OeDMZzr59cULGemhVanDSg jKfumSC3y3ceWDSoR8cxbT sNgPX9bTX2DUwjHYyxoWE4 CXvegXLmdAD6VZlozELjBI F1HSFsALEkl26vPOMwBkHw txkgZpTxql0gncOkY0zpro BiiztcoeIfkh9dKWuvbQWw CBKnUNUkKTLrp84iICBery TzfIXqpUxhhXP1a3qyKUHf E1pxeZbImRQ9qKk7OrKcN6 WmhKptRHD8NUimWERrPFog dGJsXHFyXGxpMVxyaTFccG elkP6uPgPuHYqoSyKaP5Ky bFxwYXJkXGludGJsXGxpMV ugiANoADI6xKEdxJHiUUKm G5Kun5LvSI1btVEwfIplsB y1cFCkv5KnjpgdyJNnTr1r dFxjZWxsXGludGJsXHJvd1 xwYXJkXHBhcn0= SPECIMEN SOURCE (test x8fltIMwDVRpfGG1UnPgJX code = 3377) Zzl7zuh4CliCRvuVZeTFwa mMOtxlZidm49zTP2yX28WI 1yXYCeLoX8UTIlfpQ2Nul7 ERHgHLLrhACuO072l7wgn0 rxtvDcaJL8YQXlIDEbW0Zp QG2mZELsiNZnI1rvRDSoSI ZyZ4XlZW6kSPJvTny7JCS8 KDx9SPZxfZRoifJlYpVnQM WiyJXmqVN7KHPkQB5lvool VLxbCWdmPBTtagY0WIFafF AfL4ZbNHQaUG6iyrhpATG9 VVmpSIAmTDK3NaStROAwj0 Tpcac0AmYfzLHsMUbcqBOd havdADutwnMnlNcbxT2uKe BsBYsvMtSpN2idKiNtwGWf Ke7rSVrqBCA0 GROSS DESCRIPTION (test z8gqlODoRBBnnOQuZkOlOG code = 3366) WzIXLnb9myGKUlnHOuEhKx MzNcZnRuYmpcdWMxXGRlZm Anh8awa308lPUef1mhLRTm IdF4mANwTXNefUHzN561HU GwOPukz0blv8XbEIXziCWi d6M4UIBIczjveCr4nBrzY2 7pw8I1UslhX0ozNILhDVAz Q5XuZE4sVXHgPas7FEF7BF X6OILaRVJxE7DsDI3dCLNg kYBiZXv5q9griJaoRLKvJT F5f3kbBAmpsnBlHO6ypi5h lGo6n1jtwrRxDJMcMHMpaH POOZOhX8TuoHslCd7thUn8 gHjcQacyKGR7Ylr3WF2scz 39udk9oIwyQYQjfulhDiM8 MWenVYGnkbrmVTw9FAbsAU JnbDcyMFxtYXJncjcyMFxt YXJndDcyMFxtYXJnYjcyMF bwEXUnMGL0DHqtn672XAH2 BRepk6qvo0wgrTLkVwj2PP DyKsBqIxttDDtrp6Fun7lw SAZnbt2oIMA2qMVlmBifc5 M4xFNkSIYcgCYracYyCBAc CqP2ADfmOI9ldx10NQXyLI Z0sy4gpYQgdWyrenZsaPGe UMmcQ5EbRTMat407ZNFzI1 DfSXHup3W5arJiYmBpJZMx pET7sgR2FDGkDCo2sZHxwf W3wmKufBTsA0vqgK03VmXp aOHeF6CwlW24UzFfwRBcZ6 EdcM89FfJloHUoR2UzwQ04 JgCjkUSeHJLnmRFlEq7aqG QruPXie0MxjBGtCCdiZ10p y275IYQcmmNjS9pwyVPcmx kncUPqyqskKLuxlgK1QDLx XHBsYWluXGYxXGZzMjBcbG FuZzEwMzNcaGljaFxmMVxk DqErRLIuXPnoL4xeNhFlFf MyMCBSZWNlaXZlZCBmcmVz aCBsYWJlbGVkIHRoZSBwYX IeNX73X1LwjfRwZXznHIAs CHFssQ9tPZ63pLKofsVwgf OqCmStA2x5GGWmmCgysHVf WAHvynSkix2oy17vLVKvDD cjOT25WgRlecVuFpSyloRn uHBmqROew3IfvHKcXMWeCJ wgdHJhYmVjdWxhdGVkIGJv inAxt0g9lMNdHBteqpIbbR QbarFzcx0mqWDucnrkyaUg ar94vFKab9ljifEpseFib5 1bkGQ0cFRngVLrhkDbT5ry UtGavx8hDPXxEJ7iKmTlB3 5kvM9pN3UmOKJfw6SnDWkq LD9oxL4dXjPlEDlhMIN4qZ ZjnPRkXILcBSazLKZhle95 LBgnu4dpGGJqABYpE5GfNG SxTTCfauXjBatdtB2xZUTy cHHxf4NqsVS7zDDjPFPjG6 Dxh01iQHEoLZNncKUknCX4 RYFrMHRtJn4ujT18ttriyS DiDLHvzdYWLBF4wH5pJCRh WLLnkNUzTVEtKXZ8OTKptN lgQZIyt41wSQPbNRabKE53 whVja9ust6fxepipLFJkGY oeqILwF2V6tX2hAZEcpeGL Nx2gq3xtFWBqFJVpm1N3RT Pnu1V0UVdvVEEfrQRxLYKe jFVnBCWkH2IgoZcymsnlAJ HgYGuAGNfKK2RUUWcdLCS3 MICROSCOPIC DESCRIPTION f9vjlFToEOQeaNT0OxVgDQ (test code = 3371) Unn4guk2QvoKJwkWXkAWbm iUOpcbQjzo87lOI6uK20BK 5nXCEmGpR3AQIlycY1Khl6 FLBgJQXpxHJrB673n5hgp5 qonsVjrDL3cIhuDHIyepbi IsO5IIqoXCVszodgKHw4BL sbRZJvrUQ0UEKwxQIdP4Tw YNCxFA3zuwj8VRX9MDpwUT JvJjB1VVBudMGcTZMorZyl HYgoo473SGM2OiFsXTIbwz JdiEyaaI6dEmUgDMPFVOMa m0HkJVJhEPPifm6= SPECIAL STUDIES (test n3tnxERvXTYil6ymZOIatJ code = 3376) FuZzEwMzNcZnRuYmpcdWMx ERhcfiVcDZdpv6RiU8RcZv AwMFxhbnNpXGRlZmxhbmcx TCQtZCR5jcAxBTXlBHnfAC LfSMgxSs4bqXVdqNpwMmHp XUYbf9qzxxWPvnldyFn2h7 ofEHUaFsP3jUQiTQtjI9ya mkVcaAOrC9SjbAPrkEt5a0 onEtJoTmS2nHGeJRibX0va lrXimHJiADIrBCq7yR31GP SirN5omKAxHGqpzrVwFqZ2 ASrfBWPnTvI6AYLifBWwOG VsE3nrIFDvWSzqMINwRKhe cAFkRTW2oNnhz8R1jWXyyN BaiOpbNzGwRcCpHeWXt5Vw IUs2qAceW1GhHMJjIzV6hV QgUGFyYWdyYXBoIEZvbnQ7 oKxsuhGum26xeXKzIYKmAT NsEkEhrLphYLHjXSTPy4Ru zUtkBEN4oLz7sFzhDvcnHV O4Puq4RB2gwc68dvw7uHdg AUDmujnlLqZ0ULuoORQkme bpYWe9NHveQZKayXH7FQUh oFGkA9DbJIMvKZ5igvr2XP V5WEvjGWKdSxL7TBLhpJAv JSUduGodQMmwu735MMV2Sr FaFT6cO3Dds2T2wO3wvECh RIHyoHRzPwQuEKDchz3dcC OgNPssu8EjHZF7kdM1cXPj oSLcGMZuRE47Lbplx6EfKm fvu7TbG26oxRT3IGjba9oq GN6pXhO5upWyYGpun3ofcZ 6dCaD7WGrmPB8fXS1wVFPa wL9viwgsCEVaZsVmgrgsFA DqqZraktQeRk0vbGxfZAK0 RQnhN7zffI6fXaB6IVbhH3 xktT8cFHb2MAogpVB2AUMq zH5kEC8jatsnp7coHLnxXD qfBQZlqaX8dzV0PWNyfBTj G6FfyL3oEFSuDY1eaznxl4 gjJAW4LRksOXCrGXJ8OtAu HSWti7Pwmho9DbUcm6LzuF QrAPixA63zy082MNRfveNm Y8myqDLbkfysfJQlaevoOJ sufxD1QKSkQKAsVJjqRZBv XGZzMjJcbGFuZzEwMzNcaG ljaFxmMVxkYmNoXGYxXGxv A7myUiTfW3IsOTJzOxQkGL xeEZynbBYslLOosNB2rN3b TB5vWLNivSKjV2OrMCEfmb TopZZaKJL4nAVisIDsVL5v MOsefUMwn3ixp0VeX4xplN kuxEK4AZ9tMSUbOFYoRZsn c8ByrY0aBsybbXDbzydmQC xmczIyXGxhbmcxMDMzXGhp Y4wgHkGuKOOjsMwcMCigt5 NoXGYxXGNmMlxmczIyXGx0 cmNoXHBhclxwYXJccGxhaW 0iIaGeUcXiOxrqGW7hMPOg A4hjdTKsPVMtKMIsG2ipMg ScuJ3fhOqwMLauEhZqLmYw JoDEs303dh8zWKCadLKbkp SWvULfzP1wGPxaYMxkAGyg aRJhRShce3pgZVHbl0l9zW BbMHKljjIbr5wnMGhiwfPq UZVylFZifVKhRGMhr71bBO aktJwraSzfZDApp1TgwSdg j7QaOvCgMGliw1VwC20mxF JvbCBzbGlkZXMgcnVuIGFs x52ki9odEQAvTzA3uVElhG B6bUUngIFkp1KzkMvdYKYm z8vcRJZkao5nlxcjkWTvm1 MfgY8uohcxEYrkmSUmrqCt PNAle5y3gKOiYBElMQGyND iznVz3GMHby626ku7ipcM8 aOJgANJ9FOuwIIDvDAIhqy UgZXZhbHVhdGVkXHBsYWlu XGYxXGZzMjJcbGFuZzEwMz NcaGljaFxmMVxkYmNoXGYx HWpvB9twVqBoL7CoJGReQg LzrRCkA7himKGvMTOjNBrr XGYxXGZzMjJcbGFuZzEwMz NcaGljaFxmMVxkYmNoXGYx RVzbH3xdPeViH4MhFWNwIb IgIFxwbGFpblxmMVxmczIy SYvamstvNYQbPKzyE5kbGt OyIUWnmUooFYyxs2ZwRILm VVNgHinhjyDjRLf5xuTsHY BhclxwbGFpblxmMVxmczIy TBrrxcijMHOvDAmjT9gzUv HhCDZnjSpvFZcrg9QfQOTr XGNmMlxmczIyIEltbXVub2 mbx3XpK1drzFrjgMB2WZIx U7jmwSUjaJF5HKR2fE7iWO zydlPnCRSmy9PwGNFhGOHa UiG6uG1eDWZ9OeHIrHwxTT BsYWluXGYxXGZzMjJcbGFu ZzEwMzNcaGljaFxmMVxkYm XqRPTvFAoiI2dnKdPpT3Lw FDXiXqCppDraJYibPIu9Dt xwbGFpblxmMVxmczIyXGxh wzcoTHAaCJoyD5egUkFvYZ RmeGhaCWsto3JpSYPyHCJp MlxmczIyIHMgTWVkaWNhbC JRDR65BTBsZXBliDrhkV8g yDLYULRugeM2a1C6EMuhEW IoXAr3UTlemrCnYNNmcX9o OIWjBQ7wLIf0gnSkHIAba6 XfCZ2jFRZmpBLnKSN2TXXv d0BaU5Ovk2AqQZAwHKNqmj 9gjfJgYySRgXPbZMZnlr11 ZGCnWB4xL4xqXNIvKOWdwd TfkDKiv2HyJEEftJV5bYHp XY0YGhGQm05xRLDgMWUTzb ZhRBClhWfqaPZ6qyD4bA8n LiBUaGUgRkRBIGhhcyBkZX Kewx6azlQxPVOcBMKdf9Ur qDMzgVKzgbFyE4Dih3CqSL Hzac91MLxebZIyjm19EL9z E4Hpv2PkoU0fDFdmBHQny8 PflNOsnAOpNOMsr2ZsD3vc wiqwDKaixBYofF2fTHShLF e5SBXhr7VyTPRse8RmCoFm giLvOHYwXSMiNMLbiI62TE Z6uOuydNgnwrZuMN5nGYSa huGeCHFdWQQwrI6uSUckex IrSKDvosA8y4H1IZghMZLb xvEdLkkcTTZ1iaOpmpC7bX ZyP0ilwhpoMIgqMFAyz4Af pZ4bnGMTrCXpv0JajTVltU CMcBUcAM7nihMcUD4hDEH3 ODggKENMSUEtODgpIGFzIH U0LBvfGyewLRB4fpCeFFFc l5VrZZvxJ3gbY62opThvjB k3lBInwRknlRLrsBJrZPDo vqK2p4Y8PVAkb1IaktctKO BsYWluXGYyXGZzMjJcbGFu ZzEwMzNcaGljaFxmMlxkYm QhGBCgCKafG4vrEuBaLtBj SzmcQWV1gC== Gross assessment was [facility] performed at ([facility], = 2777) Department of Pathology, [address] [place] [address], Technical component was [facility] performed at ([facility], = 2778) Department of Pathology, [address] [place] [address] 09585, Professional component [facility] was performed at ([facility], code = 2779) Department of Pathology, [address] [place] [address] 9[address], [facility] [id number] 12:20:52Surgical Pathology Report Case: [id number] Authorizing Provider: Star Cloud DPM Collected: 03/02/2021 03:11 PM Ordering Location: [address] Received: 03/02/2021 04:39 PM Service Pathologist: Liz Branham MD Specimen: Bone, Right achilles tendon/bone fragment for ID A. BONE, RIGHT ACHILLES TENDON, DEBRIDEMENT: - ACUTE OSTEOMYELITIS WITH FIBRINOPURULENT EXUDATE. Signing Pathologist Direct Phone Line: [phone] signed by Liz Branham MD on 03/09/2021 at 12:20 [id number], [id number] Acute hematogenous osteomyelitis of right foot BoneReceived fresh labeled the patient's name, accession number and "right Achilles tendon/bone fragment" are 3 fragments of gardner-red, trabeculated bone with adherent green-black, necrotic skin and soft tissue ranging from 1.5-2.0 cm in greatest dimension. The cut surface is gardner-yellow, trabeculated and firm. Wort Extractor sections are submitted as follows:Section dnodL2-Q6-oriiso bone fragments following decalcificationA6-skin and soft tissuePilaLEW Delgado HT (ASCP)Performed.The interpretation of this case included the use of immunohistochemistry or special stains.Control Slides Examined: In-house known positive controls were evaluated along with the test tissue. These control slides run alongside of the patients sample show appropriate staining. Internal positive and negative controls when available are evaluated Immunohistochemistry technical testing was performed at [facility], Pathology Laboratory where it was developed and its performance characteristics were determined. It has not been cleared or approved bythe U.S. Food and Drug Administration. The FDA has determined that such clearance or approval is not necessary. The test is used for clinical purposes. It should not be regarded as investigational or for research. This laboratory is certified under the Clinical Laboratory Improvement Amendments of 1988 (CLIA-88) as qualified to perform high complexity clinical laboratory testing.[facility], Department of Pathology, [address] [place] [address], [facility] of [facility]ology, [address] [place] [address], [facility], [facility] of [facility]ology, [address] [place] [address] 25[address], FLAX-GLUCOSE [id number] 11:21:42 Test Item Value Reference Range Interpretation Comments POC-GLUCOSE METER 102 mg/dL 70-110 : TESTED A T [facility] ([email or web address]) (test code = [facility], 153) 35296: Academic Affairs Assistant/Techni estefani ID = [id number] for Indy Stevenson POCT-GLUCOSE [id number] 07:24:40 Test Item Value Reference Range Interpretation Comments POC-GLUCOSE METER 69 mg/dL 70-110 L : TESTED A T [facility] ([employer]) (test code = [facility], 153) 18330: Academic Affairs Assistant/Techni estefani ID = [id number] for Indy Hodgson BASIC METABOLIC [id number] 07:05:47 Test Item Value Reference Range Interpretation [...] S NOT APPLICABLE FOR DIALYSIS PATIEN TS. Academic Affairs Assistant ID - JAQUELINE MPOCT-GLUCOSE [id number] 21:01:43 Test Item Value Reference Range Interpretation Comments POC-GLUCOSE METER 104 mg/dL 70-110 : TESTED A T [facility] (BEAKER) (test code = [facility], 1538) 66942: Academic Affairs Assistant/Techni estefani ID = [id number] for KAREN JULIAN POCT-GLUCOSE [id number] 15:35:38 Test Item Value Reference Range Interpretation Comments POC-GLUCOSE METER 128 mg/dL 70-110 H : TESTED A T [facility] (BEAKER) (test code = [facility], 1538) 61158: Academic Affairs Assistant/Techni estefani ID = [id number] for Gary prasad [employer] [id number] 14:26:15 Test Item Value Reference Range Interpretation Comments Result (test code = No anaerobes isolated 6463-4) [facility] [id number] 14:26:15 Test Item Value Reference Range Interpretation Comments Result (test code = No anaerobes isolated 6463-4) [facility] [id number] 14:26:15 Test Item Value Reference Range Interpretation Comments CULTURE (BEAKER) (test No anaerobes isolated code = 1095) ANAEROBIC [id number] 14:22:02 Test Item Value Reference Range Interpretation Comments CULTURE (BEAKER) (test No anaerobes isolated code = 1095) [id number] 12:05:50 Test Item Value Reference Range Interpretation Comments PHOSPHORUS (BEAKER) (test code = 6.0 mg/dL 2.3-4.7 H 604) Academic Affairs Assistant ID - DANITZA LPOCT-GLUCOSE [id number] 11:25:46 Test Item Value Reference Range Interpretation Comments POC-GLUCOSE METER 93 mg/dL 70-110 : TESTED A T [facility] (BEAKER) (test code = [facility], 1538) 41692: Academic Affairs Assistant/Techni estefani ID = [id number] for Jewels Davies POCT-GLUCOSE [id number] 07:29:21 Test Item Value Reference Range Interpretation Comments POC-GLUCOSE METER 84 mg/dL 70-110 : TESTED A T [facility] (BEAKER) (test code = [facility], 1538) 65822: Academic Affairs Assistant/Techni estefani ID = [id number] for Jewels Davies BASIC METABOLIC [id number] 05:48:13 Test Item Value Reference Range Interpretation [...] S NOT APPLICABLE FOR DIALYSIS PATIEN TS. Academic Affairs Assistant ID - DANITZA LVANCOMYCIN LEVEL, [id number] 05:13:36 Test Item Value Reference Range Interpretation Comments VANCOMYCIN RANDOM (BEAKER) (test 18.4 ug/mL code = 523) Reference Range: No NormalsOperator ID - DANITZA LPOCT-GLUCOSE [id number] 21:23:17 Test Item Value Reference Range Interpretation Comments POC-GLUCOSE METER 118 mg/dL 70-110 H : TESTED A T [facility] (BEAKER) (test code = [facility], 1538) 25588: Academic Affairs Assistant/Techni estefani ID = [id number] for ORION CASTANEDA POCT-GLUCOSE [id number] 16:22:46 Test Item Value Reference Range Interpretation Comments POC-GLUCOSE METER 94 mg/dL 70-110 : TESTED A T [facility] (BEAKER) (test code = [facility], 1538) 90336: Academic Affairs Assistant/Techni estefani ID = [id number] for ANKIT SMITH POCT-GLUCOSE [id number] 12:19:51 Test Item Value Reference Range Interpretation Comments POC-GLUCOSE METER 97 mg/dL 70-110 : TESTED A T [facility] (BEAKER) (test code = [facility], 1538) 77405: Academic Affairs Assistant/Techni estefani ID = [id number] for EMIGDIO SMITHITA POCT-GLUCOSE [id number] 08:48:25 Test Item Value Reference Range Interpretation Comments POC-GLUCOSE METER 70 mg/dL 70-110 : TESTED A T [facility] (BEAKER) (test code = [facility], 1538) 69507: Academic Affairs Assistant/Techni estefani ID = [id number] for KELSI BONNERN ANKIT CBC W/PLT COUNT & AUTO [id number] 06:55:44 Test Item Value Reference Range Interpretation [...] (BEAKER) (test code = 2801) Vancomycin level, [id number] 06:02:23 Test Item Value Reference Range Interpretation Comments Vancomycin Tr (test code = 19.2 ug/mL 10.0-20.0 4092-3) [facility] (test code = [facility]LL) Academic Affairs Assistant ID - JAQUELINE M Lab Interpretation (test Normal code = 23084-4) [facility], [id number] 06:02:23 Test Item Value Reference Range Interpretation Comments Vancomycin Tr (test code = 19.2 ug/mL 10.0-20.0 4092-3) [place]LL (test code = MITCHELL) Academic Affairs Assistant ID - JAQUELINE M Lab Interpretation (test Normal code = 02194-2) [facility] [id number] 06:02:23 Test Item Value Reference Range Interpretation Comments VANCOMYCIN TROUGH (BEAKER) (test 19.2 ug/mL 10.0-20.0 code = 522) Academic Affairs Assistant ID - JAQUELINE MPOCT-GLUCOSE [id number] 21:00:17 Test Item Value Reference Range Interpretation Comments POC-GLUCOSE METER 79 mg/dL 70-110 : TESTED A T [facility] 6720 (BEAKER) (test code = [facility], 153) 15470: Academic Affairs Assistant/Techni estefani ID = [id number] for SHAMEKA MOLINA POCT-GLUCOSE [id number] 16:13:51 Test Item Value Reference Range Interpretation Comments POC-GLUCOSE METER 112 mg/dL 70-110 H : TESTED A T [facility] 67[facility] (BEAKER) (test code = [facility], 1538) 77014: Academic Affairs Assistant/Techni estefani ID = [id number] for FAISAL, NII POCT-GLUCOSE [id number] 12:21:34 Test Item Value Reference Range Interpretation Comments POC-GLUCOSE METER 84 mg/dL 70-110 : TESTED A T [facility] 6720 (BEAKER) (test code = [facility], 153) 48472: Academic Affairs Assistant/Techni estefani ID = [id number] for FAISAL, NII POCT-GLUCOSE [id number] 08:29:43 Test Item Value Reference Range Interpretation Comments POC-GLUCOSE METER 84 mg/dL 70-110 : TESTED A T [facility] 67[facility] (BEAKER) (test code = [facility], 153) 87932: Academic Affairs Assistant/Techni estefani ID = [id number] for FAISAL, NII BASIC METABOLIC [id number] 07:10:22 Test Item Value Reference Range Interpretation [...] S NOT APPLICABLE FOR DIALYSIS PATIEN TS. Academic Affairs Assistant ID - PIAYA LCBC W/PLT COUNT & AUTO [id number] 06:40:33 Test Item Value Reference Range Interpretation [...] PERCENT (BEAKER) (test code = 2801) POCT-GLUCOSE [id number] 21:18:36 Test Item Value Reference Range Interpretation Comments POC-GLUCOSE METER 110 mg/dL 70-110 : TESTED A T [facility] 6720 (BEAKER) (test code = [facility], 1538) 41949: Academic Affairs Assistant/Techni estefani ID = [id number] for Marilin hall Ramonita POCT-GLUCOSE [id number] 16:23:36 Test Item Value Reference Range Interpretation Comments POC-GLUCOSE METER 138 mg/dL 70-110 H : TESTED A T [facility] 6720 (BEAKER) (test code = [facility], 1538) 85772: Academic Affairs Assistant/Techni estefani ID = [id number] for Aure Teran SARS-COV2/RT-PCR ([facility])2021-03-05 11:06:00 Test Item Value Reference Range Interpretation Comments SARS-COV2/RT-PCR (test code = Negative Negative 3737089) Negative result for this test determines that [...] 564(g) of the Act.Testing was performed using Nitro SARS-CoV-2 assay.Fact Sheet for Healthcare Providers:https://www.SportStream.giles/ari/RT SARS-CoV-2 HCP Fact Sheet 51- 161476.pdfFact Sheet for Healthcare Patients:https://www.[employer]Stream.giles/ari/RT SARS-CoV-2 Patient Fact Sheet EN 51-036506U6.pdfSURGICALLY OBTAINED CULTURE + GRAM [id number] 09:04:09 Test Item Value Reference Interpretation Comments Range CULTURE ([email or web address]) A 4+ Coryneba cterium (test code = 1095) species CULTURE (The JetstreamAKER) STAPHYLOCOCCUS A 4+ Staphy lococcus (test code [...] gram positive (BEAKER) (test code rods = 392654) GRAM STAIN RESULT <1+ gram positive (BEAKER) (test code cocci in pairs = 882920) SURGICALLY OBTAINED CULTURE + GRAM [id number] 09:01:34 Test Item Value Reference Interpretation Comments [...] th is result as normal/abnormal . CULTURE (The JetstreamAKER) A 2+ Beta-hem olytic (test code = 1095) streptoco ccus group G, by serologic al grouping CULTURE (The JetstreamAKER) STAPHYLOCOCCUS A 3+ Staphy lococcus (test code [...] gram positive (BEAKER) (test code rods = 625179) GRAM STAIN RESULT 1+ gram positive (BEAKER) (test code cocci in chains = 067934) and pairs RAD, FOOT, 2 VIEWS, [id number] 06:55:00Is this procedure to be performed with weight bearing?->Non-Weight BearingReason for exam:->post op revision of post TMA, bone resection psoterior calceaus and forefoot.Should this be performed at the bedside?->Yes [facility] : 1960 Sex: MFINAL REPORTPATIENT ID: [id number] RAD, FOOT, 2 VIEWS, RIGHT INDICATION: post [...] additional osseous change. Signed: JR Cuate, Hali Jacob Verified Date/Time: 03/05/2021 06:55:23 Reading Location: [facility] Radiology Reading Room CBC W/PLT COUNT & AUTO [id number] 04:59:49 Test Item Value Reference Range Interpretation [...] (BEAKER) (test code = 2801) BASIC METABOLIC [id number] 04:59:02 Test Item Value Reference Range Interpretation [...] S NOT APPLICABLE FOR DIALYSIS PATIEN TS. Academic Affairs Assistant ID - PIZAYRA LVANCOMYCIN LEVEL, [id number] 04:48:13 Test Item Value Reference Range Interpretation Comments VANCOMYCIN RANDOM (BEAKER) (test 15.8 ug/mL code = 523) Reference Range: No NormalsOperator ID - DANITZA LPOCT-GLUCOSE [id number] 04:08:20 Test Item Value Reference Range Interpretation Comments POC-GLUCOSE METER 89 mg/dL 70-110 : TESTED A T [facility] 6720 (BEAKER) (test code = [facility], 1538) 59449: Academic Affairs Assistant/Techni estefani ID = [id number] for KAREN REED AM BASIC METABOLIC [id number] 13:43:25 Test Item Value Reference Range Interpretation [...] S NOT APPLICABLE FOR DIALYSIS PATIEN TS. Academic Affairs Assistant ID - DANITZA LVANCOMYCIN LEVEL, [id number] 13:26:53 Test Item Value Reference Range Interpretation Comments VANCOMYCIN RANDOM (BEAKER) (test 16.5 ug/mL code = 523) Reference Range: No NormalsOperator ID - DANITZA LPOCT-GLUCOSE [id number] 11:46:40 Test Item Value Reference Range Interpretation Comments POC-GLUCOSE METER 89 mg/dL 70-110 : TESTED A T [facility] 6720 (BEAKER) (test code = [facility], 1538) 32860: Academic Affairs Assistant/Techni estefani ID = [id number] for Cornel rubi, [place] POCT-GLUCOSE [id number] 09:19:21 Test Item Value Reference Range Interpretation Comments POC-GLUCOSE METER 85 mg/dL 70-110 : TESTED A T [facility] 6720 (BEAKER) (test code = [facility], 1538) 77095: Academic Affairs Assistant/Techni estefani ID = [id number] for Cornel footed, [place] Blood Culture - Routine (Left Venipuncture)2021-03-04 02:00:49 Test Item Value Reference Range Interpretation Comments Result (test code = No growth in 5 days 6463-4) [facility]2021-03-04 02:00:49 Test Item Value Reference Range Interpretation Comments Result (test code = No growth in 5 days 6463-4) [facility] [id number] 02:00:49 Test Item Value Reference Range Interpretation Comments CULTURE (BEAKER) (test No growth in 5 days code = 1095) BLOOD [id number] 02:00:48 Test Item Value Reference Range Interpretation Comments CULTURE (BEAKER) (test No growth in 5 days code = 1095) POCT-GLUCOSE [id number] 16:43:34 Test Item Value Reference Range Interpretation Comments POC-GLUCOSE METER 121 mg/dL 70-110 H : TESTED A T [facility] 6720 (BEAKER) (test code = [place] [facility] Jose [facility], 1538) 47111: Academic Affairs Assistant/Techni estefani ID = [id number] for Jewels Tavarez POCT-GLUCOSE [id number] 11:35:53 Test Item Value Reference Range Interpretation Comments POC-GLUCOSE METER 146 mg/dL 70-110 H : TESTED A T [facility] 6720 (BEAKER) (test code = [facility], 1538) 09801: Academic Affairs Assistant/Techni estefani ID = [id number] for Jewels Tavarez BASIC METABOLIC [id number] 10:24:11 Test Item Value Reference Range Interpretation [...] S NOT APPLICABLE FOR DIALYSIS PATIEN TS. Academic Affairs Assistant ID - PIAYA LPOCT-GLUCOSE [id number] 07:12:16 Test Item Value Reference Range Interpretation Comments POC-GLUCOSE METER 100 mg/dL 70-110 : TESTED A T [facility] 6720 (BEAKER) (test code = [place], 1538) 08595: Academic Affairs Assistant/Techni estefani ID = [id number] for GR AHAM, KAREN SPIN/CONCENTRATION [id number] 06:33:09 Test Item Value Reference Range Interpretation Comments Concentration charged (test code = Done 094) [facility] [id number] 06:33:09 Test Item Value Reference Range Interpretation Comments Concentration charged (test code = Done 623) [facility] [id number] 06:33:09 Test Item Value Reference Range Interpretation Comments CONCENTRATION CHARGED (BEAKER) (test Done code = 5063) CBC W/PLT COUNT & AUTO [id number] 04:14:18 Test Item Value Reference Range Interpretation [...] PERCENT (BEAKER) (test code = 2801) POCT-GLUCOSE [id number] 23:58:47 Test Item Value Reference Range Interpretation Comments POC-GLUCOSE METER 154 mg/dL 70-110 H : TESTED A T [facility] 6720 (BEAKER) (test code = [place], 1538) 42947: Academic Affairs Assistant/Techni estefani ID = [id number] for GR AHAM, KAREN [id number] 18:10:11 Test Item Value Reference Range Interpretation Comments Ferritin (test code = 776.18 ng/mL 5.00-275.00 H 2276-4) MITCHELL (test code = MITCHELL) Academic Affairs Assistant ID - FSE Lab Interpretation (test Abnormal code = 09363-1) [facility] 18:10:11 Test Item Value Reference Range Interpretation Comments Ferritin (test code = 776.18 ng/mL 5.00-275.00 H 2276-4) MITCHELL (test code = MITCHELL) Academic Affairs Assistant ID - FSE Lab Interpretation (test Abnormal code = 45093-3) [facility] 18:10:11 Test Item Value Reference Range Interpretation Comments FERRITIN (BEAKER) (test code = 776.18 ng/mL 5.00-275.00 H 361) Academic Affairs Assistant ID - FSEIron, TIBC, % sat. (without ferritin)2021-03-02 17:49:09 Test Item Value Reference Range Interpretation Comments Iron (test code = 2498-4) 33.0 ug/dL 40.0-160.0 L TIBC (test code = 2500-7) 180 ug/dL 250-450 L Iron % Saturation (test 18 % 20-55 L code = 2502-3) MITCHELL (test code = MITCHELL) Academic Affairs Assistant ID - FSE Lab Interpretation (test Abnormal code = 08821-5) [facility], % sat. (without ferritin)2021-03-02 17:49:09 Test Item Value Reference Range Interpretation Comments Iron (test code = 2498-4) 33.0 ug/dL 40.0-160.0 L TIBC (test code = 2500-7) 180 ug/dL 250-450 L Iron % Saturation (test 18 % 20-55 L code = 2502-3) MITCHELL (test code = MITCHELL) Academic Affairs Assistant ID - FSE Lab Interpretation (test Abnormal code = 57065-0) [facility] Hospital[facility], TIBC, % SAT. (WITHOUT FERRITIN)2021-03-02 17:49:09 Test Item Value Reference Range Interpretation Comments IRON (BEAKER) (test code = 547) 33.0 ug/dL 40.0-160.0 L TOTAL IRON BINDING CAPACITY 180 ug/dL 250-450 L (BEAKER) (test code = 769) IRON % SATURATION (2) (BEAKER) 18 % 20-55 L (test code = 2590) Academic Affairs Assistant ID - [id number] 17:46:44 Test Item Value Reference Range Interpretation Comments PHOSPHORUS (BEAKER) (test code = 4.4 mg/dL 2.3-4.7 604) Academic Affairs Assistant ID - FSEPOCT-GLUCOSE [id number] 16:19:13 Test Item Value Reference Range Interpretation Comments POC-GLUCOSE METER 113 mg/dL 70-110 H : TESTED A T [facility] 6720 (BEAKER) (test code = [facility], 1538) 38453: Academic Affairs Assistant/Techni estefani ID = [id number] for Nelly Traore POCT-GLUCOSE [id number] 11:25:41 Test Item Value Reference Range Interpretation Comments POC-GLUCOSE METER 85 mg/dL 70-110 : TESTED A T [facility] 6720 (BEAKER) (test code = DASIA Flannery [facility], 1538) 26473: Academic Affairs Assistant/Techni estefani ID = [id number] for Avery Mendoza CBC W/PLT COUNT & AUTO [id number] 08:28:03 Test Item Value Reference Range Interpretation [...] (BEAKER) (test code = 2801) BASIC METABOLIC [id number] 05:41:27 Test Item Value Reference Range Interpretation [...] S NOT APPLICABLE FOR DIALYSIS PATIEN TS. Academic Affairs Assistant ID - DBPOCT-GLUCOSE [id number] 21:49:33 Test Item Value Reference Range Interpretation Comments POC-GLUCOSE METER 169 mg/dL 70-110 H : TESTED A T [facility] 6720 (BEAKER) (test code = [place], 1538) 42376: Academic Affairs Assistant/Techni estefani ID = [id number] for Ramonita Prado RAD, CHEST, 1 VIEW, NON [id number] 18:21:00Reason for exam:->preopShould this be performed at the bedside?->Yes [facility] : 1960 Sex: MFINAL REPORTPATIENT ID: [id number] TECHNIQUE: Frontal view of the chest. INDICATION: [...] Torre Verified Date/Time: 03/01/2021 18:21:46 Reading Location: [address] Body Reading Room POCT-GLUCOSE [id number] 16:59:29 Test Item Value Reference Range Interpretation Comments POC-GLUCOSE METER 109 mg/dL 70-110 : TESTED A T [facility] 6720 ([email or web address]) (test code = DASIA Flannery [facility], 1538) 24454: Academic Affairs Assistant/Techni estefani ID = [id number] for Indy Stevenson POCT-GLUCOSE [id number] 11:51:04 Test Item Value Reference Range Interpretation Comments POC-GLUCOSE METER 103 mg/dL 70-110 : TESTED A T [facility] 6720 ([email or web address]) (test code = [facility], 1538) 33862: Academic Affairs Assistant/Techni estefani ID = [id number] for Indy Stevenson BASIC METABOLIC [id number] 10:02:41 Test Item Value Reference Range Interpretation [...] S NOT APPLICABLE FOR DIALYSIS PATIEN TS. Academic Affairs Assistant ID - DBPOCT-GLUCOSE [id number] 08:04:13 Test Item Value Reference Range Interpretation Comments POC-GLUCOSE METER 98 mg/dL 70-110 : TESTED A T [facility] 6720 (BEAKER) (test code = [facility], 1538) 03082: Academic Affairs Assistant/Techni estefani ID = [id number] for Indy Hodgson BASIC METABOLIC [id number] 06:12:22 Test Item Value Reference Range Interpretation [...] S NOT APPLICABLE FOR DIALYSIS PATIEN TS. Academic Affairs Assistant ID - DBCBC W/PLT COUNT & AUTO [id number] 04:41:19 Test Item Value Reference Range Interpretation [...] PERCENT (BEAKER) (test code = 2801) POCT-GLUCOSE [id number] 21:22:14 Test Item Value Reference Range Interpretation Comments POC-GLUCOSE METER 133 mg/dL 70-110 H : [facility] A T [facility] 6720 [facility] (test code = [facility], 1538) 34296: Academic Affairs Assistant/Techni estefani ID = [id number] for Ramonita Prado POCT-GLUCOSE [id number] 15:53:46 Test Item Value Reference Range Interpretation Comments POC-GLUCOSE METER 196 mg/dL 70-110 H : TESTED A T [facility] 6720 (BEAKER) (test code = [facility], 1538) 63140: Academic Affairs Assistant/Techni estefani ID = [id number] for Callie reynaga, Indy POCT-GLUCOSE [id number] 12:54:21 Test Item Value Reference Range Interpretation Comments POC-GLUCOSE METER 176 mg/dL 70-110 H : TESTED A T [facility] 6720 (BEAKER) (test code = [facility], 1538) 95923: Academic Affairs Assistant/Techni estefani ID = [id number] for Le onard, Indy Arterial Doppler Leg, [id number] 12:06:18Ejection FractionSLEH ECHO HEARTLAB MKCKESSON [facility] CenterAr[facility] Leg, Right 2021-02-28 12:06:18Ejection FractionSLEH ECHO HEARTLAB MKCKESSON [facility] CenterPO[facility]SE [id number] 08:27:05 Test Item Value Reference Range Interpretation Comments POC-GLUCOSE METER 119 mg/dL 70-110 H : TESTED A T [facility] 6720 (NOE) (test code = DASIA Flannery [place], 1538) 20918: Academic Affairs Assistant/Techni estefani ID = [id number] for Indy Stevenson, FOOT, 2 VIEWS, [id number] 07:46:00Is this procedure to be performed with weight bearing?->Non-Weight BearingReason for exam:->chronic osteo of right footJOANN [facility] : 1960 Sex: MFINAL REPORTPATIENT ID: [id number] Radiograph of the right foot Reason for [...] Hutson Verified Date/Time: 02/28/2021 07:46:26 Reading Location: [address] Ortho Consult Reading Room POCT-GLUCOSE [id number] 23:55:52 Test Item Value Reference Range Interpretation Comments POC-GLUCOSE METER 129 mg/dL 70-110 H : TESTED A T [facility] 6720 (NOE) (test code = DASIA Flannery [place], 1538) 69554: Academic Affairs Assistant/Techni estefani ID = [id number] for ON UOHA ANTONY VANCOMYCIN LEVEL, [id number] 23:14:57 Test Item Value Reference Range Interpretation Comments VANCOMYCIN RANDOM (BEAKER) (test 20.5 ug/mL code = 523) Reference Range: No NormalsOperator ID - BASSEM WSARS-COV2/RT-PCR (HS & REF LABS)2021-02-27 22:54:17 Test Item Value Reference Range Interpretation Comments SARS-COV2/RT-PCR (test Negative Not Detected, Negative, code = 5495296) See external report for linked test SARS-COV-[address] [facility] KEELY (test code = 2203396) Negative result for this test determines that [...] of the Act.Fact Sheet for Healthcare Prov iders:https://www.Trunkbow.Ukash/sites/default/files/product/documents/Fact_Sheet_HC _Xpbxwlcxm_Tlcd_CXZJ-NgK-6.pdfFact Sheet for Healthcare Patients:https://www.Trunkbow.Ukash/sites/default/files/product/docume nts/Htvq_Yjsww_Nwnrmxku_Blim_OIQR-BjH-9.pdfPerforming Laboratory:[facility], [place] [address]Kkmszikvm B surface [id number] 21:03:43 Test Item Value Reference Range Interpretation Comments Hepatitis B surface Nonreactive Nonreactive antigen (test code = 5195-3) MITCHELL (test code = MITCHELL) Specimen is considered negative for HBsAg. Lab Interpretation (test Normal code = 37463-3) [facility]at[facility] B surface [id number] 21:03:43 Test Item Value Reference Range Interpretation Comments Hepatitis B surface Nonreactive Nonreactive antigen (test code = 5195-3) MITCHELL (test code = MITCHELL) Specimen is considered negative for HBsAg. Lab Interpretation (test Normal code = 34025-1) [facility] B SURFACE [id number] 21:03:43 Test Item Value Reference Range Interpretation Comments HEPATITIS B SURFACE ANTIGEN (2) Nonreactive Nonreactive (BEAKER) (test code = 2585) Specimen is considered negative for HBsAg.POCT-GLUCOSE [id number] 12:44:24 Test Item Value Reference Range Interpretation Comments POC-GLUCOSE METER 127 mg/dL 70-110 H : TESTED A T [facility] 6720 ([email or web address]) (test code = [facility], 153) 94068: Academic Affairs Assistant/Techni estefani ID = [id number] for Indy Stevenson POCT-GLUCOSE [id number] 09:35:05 Test Item Value Reference Range Interpretation Comments POC-GLUCOSE METER 102 mg/dL 70-110 : TESTED A T [facility] 6720 (BEAKER) (test code = [facility], 1538) 88326: Academic Affairs Assistant/Techni estefani ID = [id number] for Indy Stevenson Comprehensive metabolic [id number] 00:02:18 Test Item Value Reference Range Interpretation Comments Protein, Total (test 8.4 See_Comment H [Autom ated code = 2885-2) message] The system which generated this result transmit doris reference range : 6.0 - 8.3 gm/dL . The reference range was not u sed to interpret th is result as normal/abnormal . Albumin (test code = 3.6 g/dL 3.5-5.0 76926-2) Alkaline Phosphatase 114 U/L 40-150 (test code = 6768-6) Total Bilirubin (test 0.4 mg/dL 0.2-1.2 code = 1974-2) Sodium (test code = 136 meq/L 418-949 0125-2) Potassium (test code 4.8 meq/L 3.5-5.1 = 2823-3) Chloride (test code = 98 meq/L 98-107 2075-0) CO2 (test code = 19 meq/L 22-29 L 8-9) BUN (test code = 83 mg/dL 7-21 H 3094-0) Creatinine (test code 10.13 mg/dL 0.57-1.25 H = 2160-0) Glucose (test code = 133 mg/dL 70-105 H 2345-7) Calcium (test code = 8.5 mg/dL 8.4-10.2 65785-6) AST (test code = 16 U/L 5-34 1920-8) ALT (test code = 29 U/L 6-55 1742-6) EGFR (test code = 5 mL/min/1.73 sq m [place] [address]-4) NOT ACCURATE CREATININE CLEARANCE IN PREDICTING GLOMERULAR FILTRATION RATE . ESTIMATED GFR I S NOT APPLICABLE FOR DIALYSIS PATIEN TS. MITCHELL (test code = MITCHELL) Academic Affairs Assistant ID - PIAYA L Lab Interpretation Abnormal (test code = 75978-0) [facility] HospitalComprehensive metabolic [id number] 00:02:18 Test Item Value Reference Range Interpretation Comments Protein, Total (test 8.4 See_Comment H [Autom ated code = 2885-2) message] The system which generated this result transmit doris reference range : 6.0 - 8.3 gm/dL . The reference range was not u sed to interpret th is result as normal/abnormal . Albumin (test code = 3.6 g/dL 3.5-5.0 48159-4) Alkaline Phosphatase 114 U/L 40-150 (test code = 6768-6) Total Bilirubin (test 0.4 mg/dL 0.2-1.2 code = 1974-2) Sodium (test code = 136 meq/L 203-119 1411-2) Potassium (test code 4.8 meq/L 3.5-5.1 = 2823-3) Chloride (test code = 98 meq/L 98-107 5-0) CO2 (test code = 19 meq/L 22-29 L 8-9) BUN (test code = 83 mg/dL 7-21 H 3094-0) Creatinine (test code 10.13 mg/dL 0.57-1.25 H = 2160-0) Glucose (test code = 133 mg/dL 70-105 H 2345-7) Calcium (test code = 8.5 mg/dL 8.4-10.2 60848-0) AST (test code = 16 U/L 5-34 1920-8) ALT (test code = 29 U/L 6-55 1742-6) EGFR (test code = 5 mL/min/1.73 [place] [address]-2) NOT ACCURATE CREATININE CLEARANCE IN PREDICTING GLOMERULAR FILTRATION RATE . ESTIMATED GFR I S NOT APPLICABLE FOR DIALYSIS PATIEN TS. MITCHELL (test code = MITCHELL) Academic Affairs Assistant ID - PIAYA L Lab Interpretation Abnormal (test code = 57954-4) [facility] HospitalCOMPREHENSIVE METABOLIC [id number] 00:02:18 Test Item Value Reference Range Interpretation [...] S NOT APPLICABLE FOR DIALYSIS PATIEN TS. Academic Affairs Assistant ID - DANITZA LC-Reactive Ygfmwks1247-40-03 00:01:52 Test Item Value Reference Range Interpretation Comments CRP (test code = 676) 10.77 mg/dL 0.00-0.50 H MITCHELL (test code = MITCHELL) Academic Affairs Assistant ID - DANITZA L Lab Interpretation (test Abnormal code = 46533-0) [facility] HospitalC-Reactive Laxpyps3227-64-40 00:01:52 Test Item Value Reference Range Interpretation Comments CRP (test code = 676) 10.77 mg/dL 0.00-0.50 H MITCHELL (test code = MITCHELL) Academic Affairs Assistant ID - DANITZA L Lab Interpretation (test Abnormal code = 76466-4) [facility] HospitalC-REACTIVE [id number] 00:01:52 Test Item Value Reference Range Interpretation Comments C-REACTIVE PROTEIN (BEAKER) (test 10.77 mg/dL 0.00-0.50 H code = 676) Academic Affairs Assistant ID - DANITZA [id number] 00:01:51 Test Item Value Reference Range Interpretation Comments PHOSPHORUS (BEAKER) (test code = 7.0 mg/dL 2.3-4.7 H 604) Academic Affairs Assistant ID - DANITZA LCrfevbvvs7734-12-78 00:01:50 Test Item Value Reference Range Interpretation Comments Magnesium (test code = 2.2 mg/dL 1.6-2.6 90729-0) MITCHELL (test code = MITCHELL) Academic Affairs Assistant ID - PIZAYRA L Lab Interpretation (test Normal code = 31500-0) [facility] HospitalMagnesium2021-12-24 00:01:50 Test Item Value Reference Range Interpretation Comments Magnesium (test code = 2.2 mg/dL 1.6-2.6 63238-3) MITCHELL (test code = MITCHELL) Academic Affairs Assistant ID - PIAYA L Lab Interpretation (test Normal code = 00273-4) [facility] 00:01:50 Test Item Value Reference Range Interpretation Comments MAGNESIUM (BEAKER) (test code = 2.2 mg/dL 1.6-2.6 627) Academic Affairs Assistant ID - DANITZA LLactic acid, [id number] 23:54:08 Test Item Value Reference Range Interpretation Comments Lactate, Venous (test code 1.17 mmol/L 0.50-2.20 = 2872) MITCHELL (test code = MITCHELL) Academic Affairs Assistant ID - DANITZA L Lab Interpretation (test Normal code = 97845-1) [facility] HospitalLactic acid, [id number] 23:54:08 Test Item Value Reference Range Interpretation Comments Lactate, Venous (test code 1.17 mmol/L 0.50-2.20 = 2872) MITCHELL (test code = MITCHELL) Academic Affairs Assistant ID - PIZAYRA L Lab Interpretation (test Normal code = 65513-6) [facility] HospitalLACTIC ACID, [id number] 23:54:08 Test Item Value Reference Range Interpretation Comments LACTATE BLOOD VENOUS (2) (BEAKER) 1.17 mmol/L 0.50-2.20 (test code = 2872) Academic Affairs Assistant ID - DANITZA [id number] 23:40:06 Test Item Value Reference Range Interpretation Comments PTT (test code = 44.1 See_Comment H [Automated message] 05638-7) The system Beamr generated this result transmitted ref erence range: 22.5 - 3 6.0 seconds. The reference range was not used to int erpret this result as normal/abnormal . Lab Interpretation (test Abnormal code = 02799-2) [facility] HospitalaPTT2021-12-23 23:40:06 Test Item Value Reference Range Interpretation Comments PTT (test code = 44.1 See_Comment H [Automated message] 33962-4) The system whic h generated this result transmitted ref erence range: 22.5 - 3 6.0 seconds. The reference range was not used to int erpret this result as normal/abnormal . Lab Interpretation (test Abnormal code = 72178-7) [facility] HospitalAPTT2021-[facility]-23 23:40:06 Test Item Value Reference Range Interpretation Comments PARTIAL THROMBOPLASTIN TIME 44.1 seconds 22.5-36.0 H (BEAKER) (test code = 760) Prothrombin time/WHE3706-05-20 23:39:04 Test Item Value Reference Interpretation Comments [...] valves. Lab Interpretation Abnormal (test code = 51117-4) [facility] HospitalProthrombin time/[id number] 23:39:04 Test Item Value Reference Interpretation Comments [...] valves. Lab Interpretation Abnormal (test code = 39760-9) [facility] HospitalPROTHROMBIN TIME/[id number] 23:39:04 Test Item Value Reference Range Interpretation Comments PROTIME (BEAKER) 16.0 seconds 11.9-14.2 H (test code = 759) INR (BEAKER) (test 1.30 See_Comment [Automat ed message] code = 370) The system Beamr generated this result transmitted ref erence range: <=5.90. The reference range was not used to int erpret this result as normal/abnormal . RECOMMENDED COUMADIN/WARFARIN INR THERAPY RANGESSTANDARD DOSE: 2.0 - 3.0 Includes: PROPHYLAXIS for venous thrombosis, systemic embolization; TREATMENT for venous thrombosis and/or pulmonary embolus.HIGH RISK: Target INR is 2.5-3.5 for patients with mechanical heart valves.CBC W/PLT COUNT & AUTO [id number] 23:30:06 Test Item Value Reference Range Interpretation [...] code = 994) seen FUNGUS CULTURE + [id number] 01:34:00 Test Item Value Reference Range Interpretation Comments CULTURE (BEAKER) (test No fungus isolated in code = 1095) 28 days FUNGUS SMEAR (BEAKER) No fungi seen (test code = 1406) FUNGUS CULTURE + [id number] 01:24:00 Test Item Value Reference Range Interpretation Comments CULTURE (BEAKER) (test No fungus isolated in code = 1095) 28 days FUNGUS SMEAR (BEAKER) No fungi seen (test code = 1406) SURGICALLY OBTAINED CULTURE + GRAM [id number] 16:50:00 Test Item Value Reference Interpretation Comments [...] No organisms (BEAKER) (test code seen = 382940) GRAM STAIN RESULT No organisms (BEAKER) (test code seen = 065582) POCT-GLUCOSE [id number] 21:10:00 Test Item Value Reference Range Interpretation Comments POC-GLUCOSE METER 142 mg/dL 70-110 H : TESTED A T [facility] 6720 (BEAKER) (test code = [facility], 153) 56519: Academic Affairs Assistant/Techni estefani ID = [id number] for KEAGAN CHÁVEZI POCT-GLUCOSE [id number] 11:54:00 Test Item Value Reference Range Interpretation Comments POC-GLUCOSE METER 103 mg/dL 70-110 : TESTED A T [facility] 6720 (BEAKER) (test code = [facility], 153) 96340: Academic Affairs Assistant/Techni estefani ID = [id number] for SA NTOS, JACOB POCT-GLUCOSE [id number] 08:41:00 Test Item Value Reference Range Interpretation Comments POC-GLUCOSE METER 83 mg/dL 70-110 : TESTED A T [facility] 6720 (BEAKER) (test code = [facility], 153) 31518: Academic Affairs Assistant/Techni estefani ID = [id number] for QUANG OS, JACOB POCT-GLUCOSE [id number] 07:07:00 Test Item Value Reference Range Interpretation Comments POC-GLUCOSE METER 68 mg/dL 70-110 L : TESTED A T [facility] 6720 (BEAKER) (test code = [facility], 153) 25293: Academic Affairs Assistant/Techni estefani ID = [id number] for TEJINDER KITCHEN CBC (HEMOGRAM ONLY)2020-10-03 06:23:00 [...] 0-0 (BEAKER) (test code = 413) POCT-GLUCOSE [id number] 17:51:00 Test Item Value Reference Range Interpretation Comments POC-GLUCOSE METER 141 mg/dL 70-110 H : TESTED A T [facility] 6720 (AKER) (test code = DASIA Flannery [facility], 1538) 79260: Academic Affairs Assistant/Techni estefani ID = [id number] for Ronald Coffman TISSUE [id number] 13:40:00Surgical Pathology Report Case: [id number] Authorizing Provider: Star Cloud DPM Collected: 09/20/2020 10:59 AM Ordering Location: [address] Received: 09/22/2020 08:28 AM Service Pathologist: Saira Chávez MD Specimen: Bone, Bone Eschar Soft Tissue Right Foot ESCHAR AND SOFT TISSUE, RIGHT FOOT, EXCISION: - SKIN AND SOFT TISSUE WITH GANGRENOUS NECROSIS,, ABSECESS AND FIBRINOPURULENT EXUDATE - GMS STAIN NEGATIVE FOR FUNGAL ORGANISM Signing Pathologist Direct Phone Line: [phone] tronically signed by Saira Chávez MD on 10/02/2020 at 1:40 PMCorrelation with culture study is recommended.98076, 55124Wfmnzigw ulcer, forefoot leftBone tissue, bone eschar soft tissue right foot A. Received are multiple pieces of baca-black, flat, necrotic skin and soft tissue from 0.5 to 2 x 2 cm excised to a depth of less than 0.1 cm. Wort Extractor sections are submitted in cassette A1. KM/ewThe interpretation of this case included the use of immunohistochemistry or special stains. GMS- NegativeControl Slides Examined: In-house known positive controls were evaluated along with the test tissue. The se control slides run alongside of the patients sample show appropriate staining. Internal positive and negative controls when available are evaluated Immunohistochemistry technical testing was performed at [facility], Pathology Laboratory where it was [...] Improvement Amendments of 1988 (CLIA-88) as qualified toperform high complexity clinical laboratory testing.POCT-GLUCOSE [id number] 13:28:00 Test Item Value Reference Range Interpretation Comments POC-GLUCOSE METER 77 mg/dL 70-110 : TESTED A T [facility]20 ([facility]) (test code = [facility], 1538) 35143: Academic Affairs Assistant/Techni estefani ID = [id number] for Aminata ieRonald THGD-[id number] 12:03:00 Test Item Value Reference Range Interpretation Comments ACTIVATED CLOTTING TIME 323 sec : 74 -137 seconds, (AKER) (test code = Baseli ne: TESTED AT 441) [facility] 67[address] [facility], 770 30: Academic Affairs Assistant/Techni estefani ID = [id number] for AMADA BOLDEN POCT-GLUCOSE [id number] 07:25:00 Test Item Value Reference Range Interpretation Comments POC-GLUCOSE METER 73 mg/dL 70-110 : TESTED A T [facility] 6720 ([facility]) (test code = [facility], 1538) 28603: Academic Affairs Assistant/Techni estefani ID = [id number] for AMADA DUKES CBC (HEMOGRAM ONLY)2020-10-02 05:34:00 [...] 0-0 (BEAKER) (test code = 413) POCT-GLUCOSE [id number] 01:02:00 Test Item Value Reference Range Interpretation Comments POC-GLUCOSE METER 91 mg/dL 70-110 : TESTED A T [facility] 6720 ([facility]) (test code = [facility], 153) 05381: Academic Affairs Assistant/Techni estefani ID = [id number] for Katelin Telloa POCT-GLUCOSE [id number] 22:29:00 Test Item Value Reference Range Interpretation Comments POC-GLUCOSE METER 101 mg/dL 70-110 : [facility] A T [facility] (test code = [facility], 153) 34946: Academic Affairs Assistant/Techni estefani ID = [id number] for Co Stefany nguyenrina POCT-GLUCOSE [id number] 17:20:00 Test Item Value Reference Range Interpretation Comments POC-GLUCOSE METER 147 mg/dL 70-110 H : TESTED A T [facility] 6720 (BEAKER) (test code = [facility], 1538) 71956: Academic Affairs Assistant/Techni estefani ID = [id number] for FA ITH, GUNNER POCT-GLUCOSE [id number] 12:35:00 Test Item Value Reference Range Interpretation Comments POC-GLUCOSE METER 75 mg/dL 70-110 : TESTED A T [facility] 6720 (BEAKER) (test code = [facility], 153) 67647: Academic Affairs Assistant/Techni estefani ID = [id number] for FAIT H, GUNNER CBC (HEMOGRAM ONLY)2020-10-01 [...] 0-0 (BEAKER) (test code = 413) POCT-GLUCOSE [id number] 21:43:00 Test Item Value Reference Range Interpretation Comments POC-GLUCOSE METER 130 mg/dL 70-110 H : TESTED A T [facility] 6720 (BEAKER) (test code = [facility] [employer] [facility], 153) 11087: Academic Affairs Assistant/Techni estefani ID = [id number] for Sully Rivera POCT-GLUCOSE [id number] 18:06:00 Test Item Value Reference Range Interpretation Comments POC-GLUCOSE METER 85 mg/dL 70-110 : TESTED A T [facility] 6720 (BEAKER) (test code = [facility] [employer] [facility], 153) 05728: Academic Affairs Assistant/Techni estefani ID = [id number] for JACOB MENDOZA POCT-GLUCOSE [id number] 12:10:00 Test Item Value Reference Range Interpretation Comments POC-GLUCOSE METER 105 mg/dL 70-110 : TESTED A T [facility] 6720 (BEAKER) (test code = [facility], 1538) 42321: Academic Affairs Assistant/Techni estefani ID = [id number] for JACOB LYLES POCT-GLUCOSE [id number] 08:18:00 Test Item Value Reference Range Interpretation Comments POC-GLUCOSE METER 79 mg/dL 70-110 : TESTED A T [facility] 6720 (BEAKER) (test code = [facility], 1538) 44276: Academic Affairs Assistant/Techni estefani ID = [id number] for JACOB MENDOZA CBC (HEMOGRAM ONLY)2020-09-30 04:35:00 [...] 0-0 (BEAKER) (test code = 413) POCT-GLUCOSE [id number] 21:43:00 Test Item Value Reference Range Interpretation Comments POC-GLUCOSE METER 122 mg/dL 70-110 H : TESTED A T [facility] 6720 (BEAKER) (test code = [facility], 1538) 45138: Academic Affairs Assistant/Techni estefani ID = [id number] for TIMA CHÁVEZ POCT-GLUCOSE [id number] 16:21:00 Test Item Value Reference Range Interpretation Comments POC-GLUCOSE METER 105 mg/dL 70-110 : TESTED A T [facility] 6720 (BEAKER) (test code [facility], = 1538) 91929: Academic Affairs Assistant/Techni estefani ID = [id number] for LATT IMORE - FLETCHER, COLLINS POCT-GLUCOSE [id number] 12:38:00 Test Item Value Reference Range Interpretation Comments POC-GLUCOSE METER 79 mg/dL 70-110 : TESTED A T [facility] 6720 (BEAKER) (test code = [facility], 1538) 09175: Academic Affairs Assistant/Techni estefani ID = [id number] for LATT IMORE - FLETCHER, COLLINS POCT-GLUCOSE [id number] 07:57:00 Test Item Value Reference Range Interpretation Comments POC-GLUCOSE METER 84 mg/dL 70-110 : TESTED A T [facility] 6720 (BEAKER) (test code = [facility], 1538) 57662: Academic Affairs Assistant/Techni estefani ID = [id number] for LATT IMORE - FLETCHER, COLLINS [id number] 05:25:00 Test Item Value Reference Range Interpretation Comments PROTIME ([facility]) (test 15.4 seconds 11.9-14.2 H code = 759) INR ([facility]) (test 1.24 See_Comment [Automat ed code = 370) message] The sy stem which generated this result transmitted reference range : <=5.90. The reference range was not used to interpret this result as normal/abnormal . PARTIAL THROMBOPLASTIN 37.6 seconds 22.5-36.0 H TIME (AKER) (test code = 760) RECOMMENDED COUMADIN/WARFARIN INR [...] 0-0 (BEAKER) (test code = 413) POCT-GLUCOSE [id number] 21:38:00 Test Item Value Reference Range Interpretation Comments POC-GLUCOSE METER 138 mg/dL 70-110 H : TESTED A T [facility] 6720 ([facility]) (test code = [facility], 153) 96574: Academic Affairs Assistant/Techni estefani ID = [id number] for JAD SALGUERO POCT-GLUCOSE [id number] 17:13:00 Test Item Value Reference Range Interpretation Comments POC-GLUCOSE METER 97 mg/dL 70-110 : TESTED A T [facility] 6720 (BEAKER) (test code = [facility], 153) 90636: Academic Affairs Assistant/Techni estefani ID = [id number] for FAIT H, GUNNER POCT-GLUCOSE [id number] 12:15:00 Test Item Value Reference Range Interpretation Comments POC-GLUCOSE METER 105 mg/dL 70-110 : TESTED A T [facility] 6720 (BEAKER) (test code = [facility], 153) 62908: Academic Affairs Assistant/Techni estefani ID = [id number] for FA ITH, GUNNER SARS-COV2/RT-PCR ([facility])2020-09-28 11:54:00 Test Item Value Reference Range Interpretation Comments SARS-COV2/RT-PCR Negative Negative The SARS-Co V-2 target (test code = 5227094) nuclei c acids are not detected in [...] Xpress SARS-CoV-2/Flu/RSV by their healthcareprovider. Results from [facility] Xpert Xpress SARS-CoV-2/Flu/RSV test should be correlated [...] of the Act.Fact Sheet for Healthcare Providers:https ://www.WeWork.com/Documents/Xpert%20Xpress%20SARS%20CoV-2/Fact%20Sheets/302-390 2%39VLXN-EMN-4%20HEALTHCARE%20PROVIDERS%20FACT%20SHEET.pdfFact Sheet for Healthcare Patients:https://www.Red Tricycle/Docum ents/Xpert%20Xpress%20SARS%20Cov-2/Fact%20Sheets/302-3801%08INOM-JBF-7%20PATIENT %20FACT%20SHEET.pdfBASIC METABOLIC [id number] 11:14:00 Test Item Value Reference Range Interpretation [...] S NOT APPLICABLE FOR DIALYSIS PATIEN TS. Academic Affairs Assistant ID - ROSIANGCBC (HEMOGRAM ONLY)2020-09-28 09:37:00 Test [...] 0-0 (BEAKER) (test code = 413) POCT-GLUCOSE [id number] 16:33:00 Test Item Value Reference Range Interpretation Comments POC-GLUCOSE METER 98 mg/dL 70-110 : TESTED A T [facility] 6720 (BEAKER) (test code = [facility] Jose [facility], 1538) 77930: Academic Affairs Assistant/Techni estefani ID = [id number] for JAD MICHAEL POCT-GLUCOSE [id number] 12:28:00 Test Item Value Reference Range Interpretation Comments POC-GLUCOSE METER 88 mg/dL 70-110 : TESTED A T [facility] 6720 (BEAKER) (test code = [facility], 1538) 03415: Academic Affairs Assistant/Techni estefani ID = [id number] for JAD MICHAEL SURGICALLY OBTAINED CULTURE + GRAM [id number] 08:40:00 Test Item Value Reference Interpretation Comments [...] gram positive (BEAKER) (test code rods = 094020) GRAM STAIN RESULT <1+ gram positive (BEAKER) (test code cocci in clusters = 618359) POCT-GLUCOSE [id number] 07:34:00 Test Item Value Reference Range Interpretation Comments POC-GLUCOSE METER 89 mg/dL 70-110 : TESTED A T [facility] 6720 (BEAKER) (test code = DASIA Flannery [facility], 1538) 45988: Academic Affairs Assistant/Techni estefani ID = [id number] for JAD MICHAEL CBC (HEMOGRAM ONLY)2020-09-27 06:32:00 [...] 0-0 (BEAKER) (test code = 413) POCT-GLUCOSE [id number] 22:02:00 Test Item Value Reference Range Interpretation Comments POC-GLUCOSE METER 156 mg/dL 70-110 H : TESTED A T [facility] 6720 (BEAKER) (test code = [facility], 153) 36962: Academic Affairs Assistant/Techni estefani ID = [id number] for Brandi kimberleySully cheema POCT-GLUCOSE [id number] 12:02:00 Test Item Value Reference Range Interpretation Comments POC-GLUCOSE METER 116 mg/dL 70-110 H : TESTED A T [facility] 6720 (BEAKER) (test code = [facility], 153) 02085: Academic Affairs Assistant/Techni estefani ID = [id number] for FA ITH, GUNNER POCT-GLUCOSE [id number] 08:31:00 Test Item Value Reference Range Interpretation Comments POC-GLUCOSE METER 93 mg/dL 70-110 : TESTED A T [facility] 6720 (BEAKER) (test code = [facility], 1538) 04333: Academic Affairs Assistant/Techni estefani ID = [id number] for FAIT H, GUNNER ANAEROBIC [id number] 07:58:00 Test Item Value Reference Range Interpretation Comments CULTURE (BEAKER) (test No anaerobes isolated code = 1095) ANAEROBIC [id number] 07:46:00 Test Item Value Reference Range Interpretation [...] 0-0 (BEAKER) (test code = 413) POCT-GLUCOSE [id number] 22:24:00 Test Item Value Reference Range Interpretation Comments POC-GLUCOSE METER 129 mg/dL 70-110 H : TESTED A T [facility] 6720 (BEAKER) (test code = [facility], 153) 73703: Academic Affairs Assistant/Techni estefani ID = [id number] for TEJINDER MORALES POCT-GLUCOSE [id number] 17:39:00 Test Item Value Reference Range Interpretation Comments POC-GLUCOSE METER 106 mg/dL 70-110 : TESTED A T [facility] 6720 (BEAKER) (test code = [facility] [employer] [facility], 153) 98912: Academic Affairs Assistant/Techni estefani ID = [id number] for SA MOISES, JACOB HEMOGLOBIN AND [id number] 15:48:00 Test Item Value Reference Range Interpretation Comments HEMOGLOBIN (BEAKER) (test code = 6.1 GM/DL 13.7-17.5 L 410) HEMATOCRIT (BEAKER) (test code = 20.6 % 40.1-51.0 L 411) Academic Affairs Assistant ID - [id number]-GLUCOSE [id number] 11:53:00 Test Item Value Reference Range Interpretation Comments POC-GLUCOSE METER 122 mg/dL 70-110 H : TESTED A T [facility] 6720 (BEAKER) [facility], 1538) 47742: Academic Affairs Assistant/Techni estefani ID = [id number] for JACOB LYLES POCT-GLUCOSE [id number] 08:02:00 Test Item Value Reference Range Interpretation Comments POC-GLUCOSE METER 105 mg/dL 70-110 : TESTED A T [facility] 6720 (BEAKER) (test code = [facility] Jose [facility], 1538) 49194: Academic Affairs Assistant/Techni estefani ID = [id number] for JACOB LYLES CBC (HEMOGRAM ONLY)2020-09-25 06:49:00 [...] 0-0 (BEAKER) (test code = 413) POCT-GLUCOSE [id number] 22:19:00 Test Item Value Reference Range Interpretation Comments POC-GLUCOSE METER 174 mg/dL 70-110 H : TESTED A T [facility] 6720 (BEAKER) (test code = [facility], 1538) 66674: Academic Affairs Assistant/Techni estefani ID = [id number] for Sully Rivera POCT-GLUCOSE [id number] 18:50:00 Test Item Value Reference Range Interpretation Comments POC-GLUCOSE METER 152 mg/dL 70-110 H : TESTED A T [facility] 6720 (BEAKER) (test code [facility], = 1538) 24295: Academic Affairs Assistant/Techni estefani ID = [id number] for Amaury Lucio POCT-GLUCOSE [id number] 11:55:00 Test Item Value Reference Range Interpretation Comments POC-GLUCOSE METER 169 mg/dL 70-110 H : TESTED A T [facility] 6720 (BEAKER) (test code = [facility], 1538) 68486: Academic Affairs Assistant/Techni estefani ID = [id number] for JACOB LYLES POCT-GLUCOSE [id number] 08:28:00 Test Item Value Reference Range Interpretation Comments POC-GLUCOSE METER 110 mg/dL 70-110 : TESTED A T [facility] 6720 (BEAKER) (test code = [facility], 1538) 40039: Academic Affairs Assistant/Techni estefani ID = [id number] for JACOB LYLES BASIC METABOLIC [id number] 07:01:00 Test Item Value Reference Range Interpretation [...] S NOT APPLICABLE FOR DIALYSIS PATIEN TS. Academic Affairs Assistant ID - BASSEM [id number] 06:35:00 Test Item Value Reference Range Interpretation Comments MAGNESIUM (BEAKER) (test code = 2.2 mg/dL 1.6-2.6 627) Academic Affairs Assistant ID - BASSEM [id number] 06:35:00 Test Item Value Reference Range Interpretation Comments PHOSPHORUS (BEAKER) (test code = 6.0 mg/dL 2.3-4.7 H 604) Academic Affairs Assistant ID Benjie LUEVANO WCBC (HEMOGRAM ONLY)2020-09-24 05:34:00 [...] 0-0 (BEAKER) (test code = 413) POCT-GLUCOSE [id number] 05:21:00 Test Item Value Reference Range Interpretation Comments POC-GLUCOSE METER 107 mg/dL 70-110 : TESTED A T [facility] 6720 (BEAKER) (test code [facility], = 1538) 33865: Academic Affairs Assistant/Techni estefani ID = [id number] for NARCISO MACEDO POCT-GLUCOSE [id number] 20:32:00 Test Item Value Reference Range Interpretation Comments POC-GLUCOSE METER 133 mg/dL 70-110 H : TESTED A T [facility] 6720 (BEAKER) (test code = [facility], 1538) 43077: Academic Affairs Assistant/Techni estefani ID = [id number] for ARUNA REYES, SJ POCT-GLUCOSE [id number] 17:23:00 Test Item Value Reference Range Interpretation Comments POC-GLUCOSE METER 141 mg/dL 70-110 H : TESTED A T [facility] 6720 (BEAKER) (test code = [facility], 1538) 76513: Academic Affairs Assistant/Techni estefani ID = [id number] for TRE TYGUNNER SARS-COV2/RT-PCR ([facility])2020-09-23 16:45:00 Test Item Value Reference Range Interpretation Comments SARS-COV2/RT-PCR (test Negative Not Detected, Negative, code = 3394974) See external report for linked test SARS-COV-2 PERFORMING LAB [facility] (test code = 3068518) Negative result for this test determines that [...] of the Act.Fact Sheet for Healthcare Prov iders:https://www.Lenskart.com/sites/default/files/product/documents/Fact_Sheet_HC _Nkndknfnm_Ptoc_ZLLC-ByH-5.pdfFact Sheet for Healthcare Patients:https://www.L[employer].com/sites/default/files/product/docume nts/Dcuh_Qycax_Enqzbmcr_Accx_EEWW-CqP-0.pdfPerforming Laboratory:[facility], [place] [address]HTYKG [id number] 12:00:00 Test Item Value Reference Range Interpretation Comments CULTURE (BEAKER) (test No growth in 5 days code = 1095) POCT-GLUCOSE [id number] 08:40:00 Test Item Value Reference Range Interpretation Comments POC-GLUCOSE METER 82 mg/dL 70-110 : TESTED A T [facility] 6720 (BEAKER) (test code = DASIA Flannery [facility], 1538) 01261: Academic Affairs Assistant/Techni estefani ID = [id number] for GUNNER MUHAMMAD BASIC METABOLIC [id number] 06:29:00 Test Item Value Reference Range Interpretation [...] S NOT APPLICABLE FOR DIALYSIS PATIEN TS. Academic Affairs Assistant ID - JAQUELINE [id number] 06:27:00 Test Item Value Reference Range Interpretation Comments MAGNESIUM (BEAKER) (test code = 1.9 mg/dL 1.6-2.6 627) Academic Affairs Assistant ID - JAQUELINE [id number] 06:27:00 Test Item Value Reference Range Interpretation Comments PHOSPHORUS (BEAKER) (test code = 4.5 mg/dL 2.3-4.7 604) Academic Affairs Assistant ID - JAQUELINE MCBC (HEMOGRAM ONLY)2020-09-23 06:08:00 [...] 0-0 (BEAKER) (test code = 413) POCT-GLUCOSE [id number] 20:54:00 Test Item Value Reference Range Interpretation Comments POC-GLUCOSE METER 111 mg/dL 70-110 H : TESTED A T [facility] 6720 (BEAKER) (test code = [facility], 1538) 41773: Academic Affairs Assistant/Techni estefani ID = [id number] for SJ HERBERT POCT-GLUCOSE [id number] 17:25:00 Test Item Value Reference Range Interpretation Comments POC-GLUCOSE METER 119 mg/dL 70-110 H : TESTED A T [facility] 6720 (BEAKER) (test code = [facility], 1538) 00211: Academic Affairs Assistant/Techni estefani ID = [id number] for GUNNER PANDYA BASIC METABOLIC [id number] 12:39:00 Test Item Value Reference Range Interpretation [...] S NOT APPLICABLE FOR DIALYSIS PATIEN TS. Academic Affairs Assistant ID Benjie HARDY [id number] 12:36:00 Test Item Value Reference Range Interpretation Comments MAGNESIUM (BEAKER) (test code = 2.0 mg/dL 1.6-2.6 627) Academic Affairs Assistant ID Benjie HARDY [id number] 12:36:00 Test Item Value Reference Range Interpretation Comments PHOSPHORUS (BEAKER) (test code = 5.8 mg/dL 2.3-4.7 H 604) Academic Affairs Assistant ID - ANTONY FPOCT-GLUCOSE [id number] 12:22:00 Test Item Value Reference Range Interpretation Comments POC-GLUCOSE METER 104 mg/dL 70-110 : TESTED A T [facility] 6720 (BEAKER) (test code = [facility], 1538) 56794: Academic Affairs Assistant/Techni estefani ID = [id number] for FA ITH, GUNNER POCT-GLUCOSE [id number] 08:22:00 Test Item Value Reference Range Interpretation Comments POC-GLUCOSE METER 100 mg/dL 70-110 : TESTED A T [facility] 6720 (BEAKER) (test code = [facility], 1538) 17309: Academic Affairs Assistant/Techni estefani ID = [id number] for FA ITH, GUNNER POCT-GLUCOSE [id number] 21:12:00 Test Item Value Reference Range Interpretation Comments POC-GLUCOSE METER 133 mg/dL 70-110 H : TESTED A T [facility] 6720 (BEAKER) (test code = [facility], 1538) 69823: Academic Affairs Assistant/Techni estefani ID = [id number] for ROSIO DUFF POCT-GLUCOSE [id number] 16:31:00 Test Item Value Reference Range Interpretation Comments POC-GLUCOSE METER 127 mg/dL 70-110 H : TESTED A T [facility] 6720 (BEAKER) (test code = [facility], 1538) 87127: Academic Affairs Assistant/Techni estefani ID = [id number] for Mark ssie, Ronald POCT-GLUCOSE [id number] 12:56:00 Test Item Value Reference Range Interpretation Comments POC-GLUCOSE METER 99 mg/dL 70-110 : TESTED A T [facility] 6720 (BEAKER) (test code = [facility], 1538) 48987: Academic Affairs Assistant/Techni estefani ID = [id number] for Aminata ie, Ronald BASIC METABOLIC [id number] 12:15:00 Test Item Value Reference Range Interpretation [...] S NOT APPLICABLE FOR DIALYSIS PATIEN TS. Academic Affairs Assistant ID - PIAYA LWOUND CULTURE + GRAM [id number] 08:12:00 Test Item Value Reference Range Interpretation Comments CULTURE (BEAKER) A 3+ Same org anism has (test code = been isolated f rom 1095) cultures(s) of the same body site and collection date . Repeat identifi cation and susceptibil ity testing perform ed only after consultat ion with the clinic ne microbiology laboratory.Refe r to previous cultur e ofEnterococcus faecalis GRAM STAIN <1+ WBCs RESULT (BEAKER) (test code = 1123) GRAM STAIN <1+ gram RESULT (BEAKER) negative rods (test code = 899141) GRAM STAIN 1+ gram positive RESULT (BEAKER) cocci in (test code = clusters 464732) WOUND CULTURE + GRAM [id number] 08:10:00 Test Item Value Reference Interpretation Comments [...] (BEAKER) (test code = cocci in pairs 225732) POCT-GLUCOSE [id number] 07:38:00 Test Item Value Reference Range Interpretation Comments POC-GLUCOSE METER 84 mg/dL 70-110 : TESTED A T [facility] 6720 (BEAKER) (test code = [facility], 153) 66312: Academic Affairs Assistant/Techni estefani ID = [id number] for Ronald Brown SPIN/CONCENTRATION [id number] 06:17:00 Test Item Value Reference Range Interpretation Comments CONCENTRATION CHARGED (AKER) (test Done code = 2657) POCT-GLUCOSE [id number] 21:46:00 Test Item Value Reference Range Interpretation Comments POC-GLUCOSE METER 122 mg/dL 70-110 H : TESTED A T [facility] 6720 (BEAKER) (test code = [facility], 153) 26157: Academic Affairs Assistant/Techni estefani ID = [id number] for Tavo Garcia POCT-GLUCOSE [id number] 17:39:00 Test Item Value Reference Range Interpretation Comments POC-GLUCOSE METER 114 mg/dL 70-110 H : TESTED A T [facility] 6720 ([facility]) (test code = [facility], [facility]) 80439: Academic Affairs Assistant/Techni estefani ID = [id number] for DEMOND HODGE POCT-GLUCOSE [id number] 12:25:00 Test Item Value Reference Range Interpretation Comments POC-GLUCOSE METER 93 mg/dL 70-110 : [facility] T [facility] 6720 [facility] (test code = [facility], 153) 19039: Academic Affairs Assistant/Techni estefani ID = [id number] for JAD MICHAEL POCT-GLUCOSE [id number] 11:36:00 Test Item Value Reference Range Interpretation Comments POC-GLUCOSE METER 95 mg/dL 70-110 : TESTED A T [facility] 6720 (BEAKER) (test code = [facility], 153) 66518: Academic Affairs Assistant/Techni estefani ID = [id number] for LUCITA DELA CRUZYeniJULIO BLOOD [id number] 06:44:00 Test Item Value Reference Range Interpretation [...] gram 1123) positive cocci in clusters BLOOD [id number] 06:43:00 Test Item Value Reference Interpretation Comments [...] 1123) gram positive cocci in clusters POCT-GLUCOSE [id number] 21:17:00 Test Item Value Reference Range Interpretation Comments POC-GLUCOSE METER 160 mg/dL 70-110 H : TESTED A T [facility] 6720 (BEAKER) (test code = [facility], 1538) 31938: Academic Affairs Assistant/Techni estefani ID = [id number] for Co ok, Kathe POCT-GLUCOSE [id number] 12:08:00 Test Item Value Reference Range Interpretation Comments POC-GLUCOSE METER 100 mg/dL 70-110 : TESTED A T [facility] 6720 (BEAKER) (test code = [facility], 1538) 75793: Academic Affairs Assistant/Techni estefani ID = [id number] for SA NTOS, JACOB CBC W/PLT COUNT & AUTO [id number] 08:20:00 Test Item Value Reference Range Interpretation [...] CONCENTRATION Adequate (CELLAVISION)(BEAKER) (test code = 3438) Academic Affairs Assistant ID - Lazara Bryant comments: Slide comments:POCT-GLUCOSE METER 2020-09-19 07:56:00 Test Item Value Reference Range Interpretation Comments POC-GLUCOSE METER 109 mg/dL 70-110 : TESTED A T [facility] 6720 (BEAKER) (test code = DAS[place] Jose [place], 1538) 48415: Academic Affairs Assistant/Techni estefani ID = [id number] for JACOB LYLES BASIC METABOLIC [id number] 06:28:00 Test Item Value Reference Range Interpretation [...] S NOT APPLICABLE FOR DIALYSIS PATIEN TS. Academic Affairs Assistant ID - DANITZA [id number] 06:27:00 Test Item Value Reference Range Interpretation Comments MAGNESIUM (BEAKER) (test code = 3.0 mg/dL 1.6-2.6 H 627) Academic Affairs Assistant ID - PIZAYRA [id number] 06:27:00 Test Item Value Reference Range Interpretation Comments PHOSPHORUS (NOE) (test code = 5.4 mg/dL 2.3-4.7 H 604) Academic Affairs Assistant ID - PIAYA LPOCT-GLUCOSE [id number] 21:24:00 Test Item Value Reference Range Interpretation Comments POC-GLUCOSE METER 202 mg/dL 70-110 H : TESTED A T [facility] 6720 (NOE) (test code = [place], 1538) 42429: Academic Affairs Assistant/Techni estefani ID = [id number] for SJ HERBERT SARS-COV2/RT-PCR ([facility])2020-09-18 18:45:00 Test Item Value Reference Range Interpretation Comments SARS-COV2/RT-PCR (test Negative Not Detected, Negative, code = 7070583) See external report for linked test SARS-COV-[address] [facility] KEELY (test code = 2579073) Negative result for this test determines that [...] of the Act.Fact Sheet for Healthcare Prov iders:https://www.L[employer]kart.com/sites/default/files/product/documents/Fact_Sheet_HC _Tjbyyzini_Qfja_GHAR-KwH-4.pdfFact Sheet for Healthcare Patients:https://www.[employer].com/sites/default/files/product/docume nts/Hova_Zohog_Muyauhiy_Zjto_ZPYF-JlF-4.pdfPerforming Laboratory:[address], [place] [address]UCRP-OMWZCKC METER 2020-09-18 17:18:00 Test Item Value Reference Range Interpretation Comments POC-GLUCOSE METER 101 mg/dL 70-110 : TESTED A T [facility] 6720 (BEAKER) (test code = [facility], 1538) 50554: Academic Affairs Assistant/Techni estefani ID = [id number] for FA TY GUNNER POCT-GLUCOSE [id number] 12:20:00 Test Item Value Reference Range Interpretation Comments POC-GLUCOSE METER 117 mg/dL 70-110 H : TESTED A T [facility] 6720 (BEAKER) (test code = [facility], 1538) 92122: Academic Affairs Assistant/Techni estefani ID = [id number] for FA TY, GUNNER BASIC METABOLIC [id number] 08:24:00 Test Item Value Reference Range Interpretation [...] S NOT APPLICABLE FOR DIALYSIS PATIEN TS. Academic Affairs Assistant ID - PIAYA LOperator ID - ADMINPOCT-GLUCOSE [id number] 08:19:00 Test Item Value Reference Range Interpretation Comments POC-GLUCOSE METER 103 mg/dL 70-110 : TESTED A T [facility] 6720 (BEAKER) (test code = [place], 1538) 85791: Academic Affairs Assistant/Techni estefani ID = [id number] for GUNNER PANDYA [id number] 07:33:00 Test Item Value Reference Range Interpretation Comments MAGNESIUM (BEAKER) 2.9 mg/dL 1.6-2.6 H Specimen slightly (test code = 627) hemolyzed Academic Affairs Assistant ID - PIAYA [id number] 07:33:00 Test Item Value Reference Range Interpretation Comments PHOSPHORUS (BEAKER) 3.6 mg/dL 2.3-4.7 Specimen slightly (test code = 604) hemolyzed Academic Affairs Assistant ID - DANITZA LCBC W/PLT COUNT & AUTO [id number] 04:53:00 Test Item Value Reference Range Interpretation [...] PERCENT (BEAKER) (test code = 2801) POCT-GLUCOSE [id number] 21:15:00 Test Item Value Reference Range Interpretation Comments POC-GLUCOSE METER 115 mg/dL 70-110 H : TESTED A T [facility] 6720 (BEAKER) (test code = [place], 1538) 86108: Academic Affairs Assistant/Techni estefani ID = [id number] for SJ HERBERT BLOOD CULTURE IDENTIFICATION [id number] 21:10:00 Test Item Value Reference Interpretation Comments Range LISTERIA MONOCYTOGENES Not Not detected (test code = 2998226) detected STAPHYLOCOCCUS (test Detected Not detected A code = 2471619) STAPHYLOCOCCUS AUREUS Detected Not detected A Methic illin-susceptible (test code = 20160211) S. aur eus (MSSA)First-tessy e therapy: Cefazolin or Ox acillin (Oxacillin pref erred if NURSE ANESTHESIA PROGRAM DIRECTOR involvement ) ID CONSULTATION REQUIREDStaphyl ococcus aureus DETECTED MecA NOT DETECTED Refere nce Range: Not Detected STREPTOCOCCUS (test Not Not detected code = 20160212) detected STREPTOCOCCUS Not Not detected AGALACTIAE (GROUP B) detected (test code = 9493846) STREPTOCOCCUS Not Not detected PNEUMONIAE (test code detected = 8795709) STREPTOCOCCUS PYOGENES Not Not detected (GROUP A) (test code = detected 8831603) ACINETOBACTER Not Not detected BAUMANNII (test code = detected 3343589) HAEMOPHILUS INFLUENZAE Not Not detected (test code = 0000049) detected NEISSERIA MENINGITIDIS Not Not detected (test code = 6184692) detected ENTEROBACTERIACEAE Not Not detected (test code = 4593056) detected ENTEROBACTER CLOACOE Not Not detected COMPLEX (test code = detected 1730927) KLEBSIELLA OXYTOCA Not Not detected (test code = 0601532) detected KLEBSIELLA PNEUMONIAE Not Not detected (test code = 1650) detected PROTEUS (test code = Not Not detected 1698634) detected SERRATIA MARCESCENS Not Not detected (test code = 0033720) detected CAMI ALBICANS (test Not Not detected code = 0462791) detected CAMI GLABRATA (test Not Not detected code = 2358872) detected CAMI KRUSEI (test Not Not detected code = 6484956) detected CAMI PARAPSILOSIS Not Not detected (test code = 6747468) detected CAMI TROPICALIS Not Not detected (test code = 5942501) detected ESCHERICHIA COLI (test Not Not detected code = 8102997) detected METHICILLIN-RESISTANCE Not Not detected Note: Antimicrobial GENE (test code = detected resistance can occur via ) multiple mechan isms. A Not Detected re sult for the [employer] antimicrobial r esistance gene assays lance s not indicate antimi crobial susceptibility. Subculturing is required for species identification and susceptibility testing of isolates. VANCOMYCIN-RESISTANCE GENE (test code = 8858237) CARBAPENEM-RESISTANCE GENE (test code = 2863246) ENTEROCOCCUS-BEAKER Not Not detected (test code = 6722169) detected PSEUDOMONAS Not Not detected AERUGINOSA-BEAKER detected (test code = 4942788) Other bacteria and resistance markers not targeted by this PCR panel cannot be excluded; therefore clinical correlation and follow up of serology, culture results, and other molecular studies is required. The results are not intended to be used as the sole means for clinical diagnosis or patient management decisions. This sample was tested at the [facility] Molecular Diagnostics Laboratory using the [employer] Blood Culture ID Panel. It is FDA cleared and has been verified and approved by the [facility] Molecular Diagnostics Laboratory for clinical use. This laboratory is CLIA-certified and College ofAmerican Pathologists (CAP)-accredited to perform high complexity testing.HEPATITIS B SURFACE [id number] 18:09:00 Test Item Value Reference Range Interpretation Comments HEPATITIS B SURFACE ANTIGEN (2) Nonreactive Nonreactive (BEAKER) (test code = 2585) Specimen is considered negative for HBsAg.POCT-GLUCOSE [id number] 17:13:00 Test Item Value Reference Range Interpretation Comments POC-GLUCOSE METER 127 mg/dL 70-110 H : TESTED A T [facility] 6720 (BEAKER) (test code = [facility], 1538) 60509: Academic Affairs Assistant/Techni estefani ID = [id number] for GUNNER PANDYA POCT-GLUCOSE [id number] 12:12:00 Test Item Value Reference Range Interpretation Comments POC-GLUCOSE METER 99 mg/dL 70-110 : TESTED A T [facility] 6720 (BEAKER) (test code = [facility], 1538) 66206: Academic Affairs Assistant/Techni estefani ID = [id number] for FAKATHI Le GUNNER CBC W/PLT COUNT & AUTO [id number] 08:34:00 Test Item Value Reference Range Interpretation [...] CONCENTRATION Adequate (CELLAVISION)(BEAKER) (test code = 3438) Academic Affairs Assistant ID - Lazara Bryant comments: Slide comments:[id number] 05:34:00 Test Item Value Reference Range Interpretation Comments MAGNESIUM (BEAKER) 2.8 mg/dL 1.6-2.6 H Specimen slightly (test code = 627) hemolyzed Academic Affairs Assistant ID - JAQUELINE [id number] 05:34:00 Test Item Value Reference Range Interpretation Comments PHOSPHORUS (BEAKER) 4.0 mg/dL 2.3-4.7 Specimen slightly (test code = 604) hemolyzed Academic Affairs Assistant ID - JAQUELINE MBASIC METABOLIC [id number] 05:34:00 Test Item Value Reference Range Interpretation [...] S NOT APPLICABLE FOR DIALYSIS PATIEN TS. Academic Affairs Assistant ID - JAQUELINE MRAD, FOOT, MIN 3 VIEWS, [id number] 20:44:00Reason for exam:->CELLULITIS [facility] CENTERName: DAYTON NAVARRETE : 1960 Sex: MFINAL REPORTPATIENT ID: [id number] X-ray right foot multiple views HISTORY: Cellulitis [...] MDReport Verified Date/Time: 09/16/2020 20:44:14 Reading Location: [address] Consult Reading Room (CELLAVISION MANUAL DIFF)2020-09-16 [...] CONCENTRATION Adequate (CELLAVISION)(BEAKER) (test code = 3438) Academic Affairs Assistant ID - Maggie comments: Slide comments:C-REACTIVE PROTEIN 2020-09-16 19:59:00 Test Item Value Reference Range Interpretation Comments C-REACTIVE PROTEIN (BEAKER) (test 10.23 mg/dL 0.00-0.50 H code = 676) Academic Affairs Assistant ID - BSBASIC METABOLIC [id number] 19:59:00 Test Item Value Reference Range Interpretation [...] S NOT APPLICABLE FOR DIALYSIS PATIEN TS. Academic Affairs Assistant ID - [id number] 19:56:00 Test Item Value Reference Range Interpretation [...] exclusion of thrombosis is within 95-100% range. PT/[id number] 19:54:00 Test Item Value Reference Range Interpretation [...] for patients with mechanical heart valves.LACTIC ACID, [id number] 19:54:00 Test Item Value Reference Range Interpretation Comments LACTATE BLOOD VENOUS (2) (BEAKER) 1.16 mmol/L 0.50-2.20 (test code = 2872) Academic Affairs Assistant ID - BSCBC W/PLT COUNT & AUTO [id number] 19:45:00 Test Item Value Reference Range Interpretation [...] (test code = 994) seen BASIC METABOLIC [id number] 11:06:00 Test Item Value Reference Range Interpretation [...] S NOT APPLICABLE FOR DIALYSIS PATIEN TS. Academic Affairs Assistant ID - EMERSONCBC (HEMOGRAM ONLY)2020-06-19 06:37:00 Test [...] 0-0 (BEAKER) (test code = 413) SARS-COV2/RT-PCR ([facility])2020-06-16 13:14:00 Test Item Value Reference Range Interpretation Comments SARS-COV2/RT-PCR (test Negative Not Detected, Negative, code = 3479646) See external report for linked test SARS-COV-2 PERFORMING LAB [facility] (test code = 0317865) Negative result for this test determines that [...] of the Act.Fact Sheet for Healthcare Prov iders:https://www.Lenskart.com/sites/default/files/product/documents/Fact_Sheet_HC _Qumjqndpg_Bnwf_NXQL-KfP-2.pdfFact Sheet for Healthcare Patients:https://www.L[employer].com/sites/default/files/product/docume nts/Mjsc_Tdlwt_Osunqqjo_Rwyh_HSFG-IeC-1.pdfPerforming Laboratory:[facility] [facility].[place], [place] [id number] 06:05:00 Test Item Value Reference Range Interpretation Comments PHOSPHORUS (BEAKER) (test code = 4.4 mg/dL 2.3-4.7 604) Academic Affairs Assistant ID - JAQUELINE MPOCT-GLUCOSE [id number] 21:46:00 Test Item Value Reference Range Interpretation Comments POC-GLUCOSE METER 124 mg/dL 70-110 H : TESTED A T [facility] 6720 ([email or web address]) (test code = [facility], 1538) 05262: Academic Affairs Assistant/Techni etsefani ID = [id number] for Zoraida Handley POCT-GLUCOSE [id number] 16:20:00 Test Item Value Reference Range Interpretation Comments POC-GLUCOSE METER 125 mg/dL 70-110 H : TESTED A T [facility] 6720 ([email or web address]) (test code = [facility], 1538) 72387: Academic Affairs Assistant/Techni estefani ID = [id number] for Wi llDelonte valadeza POCT-GLUCOSE [id number] 14:24:00 Test Item Value Reference Range Interpretation Comments POC-GLUCOSE METER 77 mg/dL 70-110 : TESTED A T [facility] 6720 (BEAKER) (test code = [place], 1538) 78106: Academic Affairs Assistant/Techni estefani ID = [id number] for Juan Manuel valadez, Areiona BASIC METABOLIC [id number] 08:54:00 Test Item Value Reference Range Interpretation [...] S NOT APPLICABLE FOR DIALYSIS PATIEN TS. Academic Affairs Assistant ID - EDASICBC W/PLT COUNT & AUTO [id number] 08:49:00 Test Item Value Reference Range Interpretation [...] PERCENT (BEAKER) (test code = 2801) POCT-GLUCOSE [id number] 07:58:00 Test Item Value Reference Range Interpretation Comments POC-GLUCOSE METER 75 mg/dL 70-110 : TESTED A T [facility] 6720 (BEAKER) (test code = [place], 1538) 07371: Academic Affairs Assistant/Techni estefani ID = [id number] for Will iams, Areiona FUNGUS CULTURE + [id number] 01:12:00 Test Item Value Reference Range Interpretation Comments CULTURE (BEAKER) A <1+ Cami (test code = duobushaemuloni i 1095) FUNGUS SMEAR No fungi seen (BEAKER) (test code = 1406) POCT-GLUCOSE [id number] 21:05:00 Test Item Value Reference Range Interpretation Comments POC-GLUCOSE METER 113 mg/dL 70-110 H : TESTED A T [facility] 6720 (BEAKER) (test code = [facility], 1538) 72347: Academic Affairs Assistant/Techni estefani ID = [id number] for RON GODWIN POCT-GLUCOSE [id number] 17:14:00 Test Item Value Reference Range Interpretation Comments POC-GLUCOSE METER 104 mg/dL 70-110 : TESTED A T [facility] 6720 (BEAKER) (test code = [facility], 1538) 08360: Academic Affairs Assistant/Techni estefani ID = [id number] for LEW VAZQUEZ, POCT-GLUCOSE [id number] 11:30:00 Test Item Value Reference Range Interpretation Comments POC-GLUCOSE METER 112 mg/dL 70-110 H : TESTED A T [facility] 6720 (BEAKER) (test code = [facility], 1538) 39214: Academic Affairs Assistant/Techni estefani ID = [id number] for PA GEORGE, POCT-GLUCOSE [id number] 09:11:00 Test Item Value Reference Range Interpretation Comments POC-GLUCOSE METER 128 mg/dL 70-110 H : TESTED A T [facility] 6720 (BEAKER) (test code = [facility], 1538) 27872: Academic Affairs Assistant/Techni estefani ID = [id number] for PA GEORGE, [place] POCT-GLUCOSE [id number] 21:56:00 Test Item Value Reference Range Interpretation Comments POC-GLUCOSE METER 120 mg/dL 70-110 H : TESTED A T [facility] 6720 (BEAKER) (test code = [facility], 1538) 84107: Academic Affairs Assistant/Techni estefani ID = [id number] for Zoraida Handley POCT-GLUCOSE [id number] 11:53:00 Test Item Value Reference Range Interpretation Comments POC-GLUCOSE METER 102 mg/dL 70-110 : TESTED A T [facility] 6720 (BEAKER) (test code = [place], 1538) 44535: Academic Affairs Assistant/Techni estefani ID = [id number] for Wi lliaDelonte lazcanoa POCT-GLUCOSE [id number] 08:16:00 Test Item Value Reference Range Interpretation Comments POC-GLUCOSE METER 85 mg/dL 70-110 : TESTED A T [facility] 6720 (BEAKER) (test code = [place], 1538) 39395: Academic Affairs Assistant/Techni estefani ID = [id number] for Will allyson Areiona [id number] 04:45:00 Test Item Value Reference Range Interpretation Comments PHOSPHORUS (BEAKER) (test code = 5.3 mg/dL 2.3-4.7 H 604) Academic Affairs Assistant ID - BSCBC W/PLT COUNT & AUTO [id number] 04:10:00 Test Item Value Reference Range Interpretation [...] PERCENT (BEAKER) (test code = 2801) POCT-GLUCOSE [id number] 21:00:00 Test Item Value Reference Range Interpretation Comments POC-GLUCOSE METER 145 mg/dL 70-110 H : TESTED A T [facility] 6720 (BEAKER) (test code = [facility], 153) 97416: Academic Affairs Assistant/Techni estefani ID = [id number] for ZAIRA LLIAREJI LAZCANO [id number] 17:48:00 Test Item Value Reference Range Interpretation Comments PHOSPHORUS (BEAKER) (test code = 4.9 mg/dL 2.3-4.7 H 604) Academic Affairs Assistant ID - BSPOCT-GLUCOSE [id number] 15:50:00 Test Item Value Reference Range Interpretation Comments POC-GLUCOSE METER 116 mg/dL 70-110 H : TESTED A T [facility] 6720 (BEAKER) (test code = [facility], 1538) 80735: Academic Affairs Assistant/Techni estefani ID = [id number] for Wi lliams, Areiona POCT-GLUCOSE [id number] 12:42:00 Test Item Value Reference Range Interpretation Comments POC-GLUCOSE METER 86 mg/dL 70-110 : TESTED A T [facility] 6720 (BEAKER) (test code = [facility], 1538) 01850: Academic Affairs Assistant/Techni estefani ID = [id number] for Will iams, Areiona POCT-GLUCOSE [id number] 08:21:00 Test Item Value Reference Range Interpretation Comments POC-GLUCOSE METER 108 mg/dL 70-110 : TESTED A T [facility] 6720 (BEAKER) (test code = [facility], [facility]8) 48374: Academic Affairs Assistant/Techni estefani ID = [id number] for Phil Montoya POCT-GLUCOSE [id number] 22:07:00 Test Item Value Reference Range Interpretation Comments POC-GLUCOSE METER 118 mg/dL 70-110 H : TESTED A T [facility] 6720 (BEAKER) (test code = [facility], [facility]8) 04311: Academic Affairs Assistant/Techni estefani ID = [id number] for Zoraida Handley POCT-GLUCOSE [id number] 12:30:00 Test Item Value Reference Range Interpretation Comments POC-GLUCOSE METER 93 mg/dL 70-110 : Notified RN/MD: TESTED ([facility]) (test code = AT [place] [address] [place] [address]) [facility] 30: Academic Affairs Assistant/Techni estefani ID = [id number] for KELSI , COSHA POCT-GLUCOSE [id number] 07:55:00 Test Item Value Reference Range Interpretation Comments POC-GLUCOSE METER 81 mg/dL 70-110 : Notified RN/MD: TESTED ([facility]) (test code = AT [facility] [address] [place] [address]) [facility], [facility] 30: Academic Affairs Assistant/Techni estefani ID = [id number] for KELSI , COSHA POCT-GLUCOSE [id number] 22:01:00 Test Item Value Reference Range Interpretation Comments POC-GLUCOSE METER 104 mg/dL 70-110 : TESTED A T [facility] 6720 (BEAKER) (test code = [facility], [facility]8) 46225: Academic Affairs Assistant/Techni estefani ID = [id number] for MO PRINCE (V), CHRIS POCT-GLUCOSE [id number] 15:55:00 Test Item Value Reference Range Interpretation Comments POC-GLUCOSE METER 95 mg/dL 70-110 : TESTED A T [facility] 6720 (BEAKER) (test code = [facility], [facility]8) 30067: Academic Affairs Assistant/Techni estefani ID = [id number] for David s Betzy POCT-GLUCOSE [id number] 11:37:00 Test Item Value Reference Range Interpretation Comments POC-GLUCOSE METER 82 mg/dL 70-110 : TESTED A T [facility] 6720 (BEAKER) (test code = [facility], [facility]8) 89424: Academic Affairs Assistant/Techni estefani ID = [id number] for David s, Betzy POCT-GLUCOSE [id number] 07:28:00 Test Item Value Reference Range Interpretation Comments POC-GLUCOSE METER 75 mg/dL 70-110 : TESTED A T [facility] 6720 (BEAKER) (test code = [facility], [facility]8) 58763: Academic Affairs Assistant/Techni estefani ID = [id number] for David s, Betzy POCT-GLUCOSE [id number] 22:59:00 Test Item Value Reference Range Interpretation Comments POC-GLUCOSE METER 104 mg/dL 70-110 : TESTED A T [facility] 6720 (BEAKER) (test code = [facility], [facility]) 43955: Academic Affairs Assistant/Techni estefani ID = [id number] for RE JAMLI SALINASA POCT-GLUCOSE [id number] 16:15:00 Test Item Value Reference Range Interpretation Comments POC-GLUCOSE METER 121 mg/dL 70-110 H : TESTED A T [facility] 6720 (BEAKER) (test code = [facility], [facility]8) 86938: Academic Affairs Assistant/Techni estefani ID = [id number] for Da vis, Betzy POCT-GLUCOSE [id number] 11:53:00 Test Item Value Reference Range Interpretation Comments POC-GLUCOSE METER 110 mg/dL 70-110 : TESTED A T [facility] 6720 (BEAKER) (test code = [facility], [facility]8) 39916: Academic Affairs Assistant/Techni estefani ID = [id number] for Da vis, Betzy POCT-GLUCOSE [id number] 07:58:00 Test Item Value Reference Range Interpretation Comments POC-GLUCOSE METER 72 mg/dL 70-110 : TESTED A T [facility] 6720 (BEAKER) (test code = [facility], [facility]8) 24115: Academic Affairs Assistant/Techni estefani ID = [id number] for David s, Betzy BASIC METABOLIC [id number] 05:59:00 Test Item Value Reference Range Interpretation [...] S NOT APPLICABLE FOR DIALYSIS PATIEN TS. Academic Affairs Assistant ID - EDASICBC W/PLT COUNT & AUTO [id number] 05:30:00 Test Item Value Reference Range Interpretation [...] PERCENT (BEAKER) (test code = 2801) POCT-GLUCOSE [id number] 22:53:00 Test Item Value Reference Range Interpretation Comments POC-GLUCOSE METER 90 mg/dL 70-110 : TESTED A T [facility] 6720 (BEAKER) (test code = [facility], 153) 43820: Academic Affairs Assistant/Techni estefani ID = [id number] for WILL IAMS, REJI POCT-GLUCOSE [id number] 15:59:00 Test Item Value Reference Range Interpretation Comments POC-GLUCOSE METER 109 mg/dL 70-110 : TESTED A T [facility] 6720 (BEAKER) (test code = [facility], 1538) 59358: Academic Affairs Assistant/Techni estefani ID = [id number] for Da vis, Betzy POCT-GLUCOSE [id number] 21:40:00 Test Item Value Reference Range Interpretation Comments POC-GLUCOSE METER 110 mg/dL 70-110 : TESTED A T [facility] 6720 (BEAKER) (test code = [facility], 1538) 09826: Academic Affairs Assistant/Techni estefani ID = [id number] for WI LLIAMS, REJI POCT-GLUCOSE [id number] 16:44:00 Test Item Value Reference Range Interpretation Comments POC-GLUCOSE METER 110 mg/dL 70-110 : TESTED A T [facility] 6720 (BEAKER) (test code [facility], = 1538) 89583: Academic Affairs Assistant/Techni estefani ID = [id number] for WILS ON, SHASTANIE POCT-GLUCOSE [id number] 11:45:00 Test Item Value Reference Range Interpretation Comments POC-GLUCOSE METER 88 mg/dL 70-110 : TESTED A T [facility] 6720 (BEAKER) (test code = [facility], 1538) 05292: Academic Affairs Assistant/Techni estefani ID = [id number] for WILS ON, SHASTANIE POCT-GLUCOSE [id number] 08:02:00 Test Item Value Reference Range Interpretation Comments POC-GLUCOSE METER 88 mg/dL 70-110 : TESTED A T [facility] 6720 ([facility]) (test code = [facility], 1538) 99785: Academic Affairs Assistant/Techni estefani ID = [id number] for VICKIE N, MARLENI POCT-GLUCOSE [id number] 21:05:00 Test Item Value Reference Range Interpretation Comments POC-GLUCOSE METER 118 mg/dL 70-110 H : TESTED A T [facility] 6720 (BEAKER) (test code = [facility], 1538) 95229: Academic Affairs Assistant/Techni estefani ID = [id number] for BEAU BALDERAS POCT-GLUCOSE [id number] 16:34:00 Test Item Value Reference Range Interpretation Comments POC-GLUCOSE METER 131 mg/dL 70-110 H : TESTED A T [facility] 6720 (BEAKER) (test code = [facility], 1538) 59563: Academic Affairs Assistant/Techni estefani ID = [id number] for FE LDER, STEVE ANAEROBIC [id number] 11:42:00 Test Item Value Reference Range Interpretation Comments CULTURE (BEAKER) (test No anaerobes isolated code = 1095) POCT-GLUCOSE [id number] 21:38:00 Test Item Value Reference Range Interpretation Comments POC-GLUCOSE METER 111 mg/dL 70-110 H : TESTED A T [facility] 6720 (BEAKER) (test code = [facility], 153) 94997: Academic Affairs Assistant/Techni estefani ID = [id number] for BEAU BALDERAS POCT-GLUCOSE [id number] 17:39:00 Test Item Value Reference Range Interpretation Comments POC-GLUCOSE METER 106 mg/dL 70-110 : TESTED A T [facility] 6720 (BEAKER) (test code = [facility], [facility]) 44911: Academic Affairs Assistant/Techni estefani ID = [id number] for PA GEORGE, NE POCT-GLUCOSE [id number] 11:36:00 Test Item Value Reference Range Interpretation Comments POC-GLUCOSE METER 109 mg/dL 70-110 : TESTED A T [facility] 6720 (BEAKER) (test code = [facility], 1537) 53159: Academic Affairs Assistant/Techni estefani ID = [id number] for LEW VAZQUEZ, NE POCT-GLUCOSE [id number] 08:59:00 Test Item Value Reference Range Interpretation Comments POC-GLUCOSE METER 75 mg/dL 70-110 : TESTED A T [facility] 6720 (BEAKER) (test code = [facility], [facility]) 87697: Academic Affairs Assistant/Techni estefani ID = [id number] for FAITH WARD, NE POCT-GLUCOSE [id number] 21:58:00 Test Item Value Reference Range Interpretation Comments POC-GLUCOSE METER 103 mg/dL 70-110 : TESTED A T [facility] 6720 (BEAKER) (test code = [facility], [facility]) 20644: Academic Affairs Assistant/Techni estefani ID = [id number] for Se harris, Zoraida POCT-GLUCOSE [id number] 17:38:00 Test Item Value Reference Range Interpretation Comments POC-GLUCOSE METER 107 mg/dL 70-110 : TESTED A T [facility] 6720 (BEAKER) (test code = [facility], 153) 58928: Academic Affairs Assistant/Techni estefani ID = [id number] for LEW VAZQUEZ, NE POCT-GLUCOSE [id number] 12:56:00 Test Item Value Reference Range Interpretation Comments POC-GLUCOSE METER 125 mg/dL 70-110 H : TESTED A T [facility] 6720 (BEAKER) (test code = [facility], [facility]) 55403: Academic Affairs Assistant/Techni estefani ID = [id number] for PRINCESS LAURA SARS-COV2/RT-PCR ([facility])2020-06-02 09:39:00 Test Item Value Reference Range Interpretation Comments SARS-COV2/RT-PCR (test Negative Not Detected, Negative, code = 5713692) See external report for linked test SARS-COV-[address] [facility] KEELY (test code = 7894514) Negative result for this test determines that [...] of the Act.Fact Sheet for Healthcare Prov iders:https://www.Lenskart.com/sites/default/files/product/documents/Fact_Sheet_HC _Jyxdvdpjp_Sqnk_WCKO-EtS-8.pdfFact Sheet for Healthcare Patients:https://www.Trunkbow.Ukash/sites/default/files/product/docume nts/Dfal_Pzscp_Rqzhztas_Yzyl_MLMQ-GtD-7.pdfPerforming Laboratory:[facility], [place] [address]XQCO-VSWZCBK METER 2020-06-02 08:48:00 Test Item Value Reference Range Interpretation Comments POC-GLUCOSE METER 124 mg/dL 70-110 H : TESTED A T [facility] 6720 (BEAKER) (test code = DASIA [place], 1538) 88765: Academic Affairs Assistant/Techni estefani ID = [id number] for LEW PRYORSYLVIA, [facility] BASIC METABOLIC [id number] 08:14:00 Test Item Value Reference Range Interpretation [...] S NOT APPLICABLE FOR DIALYSIS PATIEN TS. Academic Affairs Assistant ID - TIAGO [id number] 08:10:00 Test Item Value Reference Range Interpretation Comments PHOSPHORUS (BEAKER) (test code = 7.0 mg/dL 2.3-4.7 H 604) Academic Affairs Assistant ID - TIAGO CVITAMIN B12 AND [id number] 07:23:00 Test Item Value Reference Range Interpretation Comments VITAMIN B12 (BEAKER) 441 pg/mL 213-816 (test code = 774) FOLATE (BEAKER) 5.90 ng/mL See_Comment L [Automated message] (test code = 362) The system which generated this result transmitted ref erence range: >=7.00. The reference range was not used to interpr et this result as normal/abnormal . Academic Affairs Assistant ID - JAQUELINE WADE, TIBC, % SAT. (WITHOUT FERRITIN)2020-06-02 06:48:00 Test Item Value Reference Range Interpretation Comments IRON (BEAKER) (test code = 547) 29.0 ug/dL 40.0-160.0 L TOTAL IRON BINDING CAPACITY 166 ug/dL 250-450 L (BEAKER) (test code = 769) IRON % SATURATION (2) (BEAKER) 17 % 20-55 L (test code = 2590) Academic Affairs Assistant ID - JAQUELINE MCBC (HEMOGRAM ONLY)2020-06-02 06:37:00 [...] 0-0 (BEAKER) (test code = 413) POCT-GLUCOSE [id number] 21:28:00 Test Item Value Reference Range Interpretation Comments POC-GLUCOSE METER 117 mg/dL 70-110 H : TESTED A T [facility] 6720 (BEAKER) (test code = DASIA [place], 1538) [address]12: Academic Affairs Assistant/Techni estefani ID = [id number] for REJI MONTOYA POCT-GLUCOSE [id number] 17:07:00 Test Item Value Reference Range Interpretation Comments POC-GLUCOSE METER 107 mg/dL 70-110 : TESTED A T [facility] 6720 (AKER) (test code = DASIA Flannery [facility], 1538) 16037: Academic Affairs Assistant/Techni estefani ID = [id number] for Kingsley Haley [id number] 16:04:00 Test Item Value Reference Range Interpretation Comments FERRITIN ([facility]) (test code = 322.82 ng/mL 5.00-275.00 H 361) Academic Affairs Assistant ID - DBSURGICALLY OBTAINED CULTURE + GRAM [id number] 12:53:00 Test Item Value Reference Interpretation Comments Range CULTURE ([facility]) PSEUDOMONAS A 2+ Pseudomo ronda (test code [...] gram negative (BEAKER) (test code = rods 407784) GRAM STAIN RESULT <1+ yeast (BEAKER) (test code = 903899) POCT-GLUCOSE [id number] 11:55:00 Test Item Value Reference Range Interpretation Comments POC-GLUCOSE METER 125 mg/dL 70-110 H : TESTED A T [facility] 6720 (BEAKER) (test code = DASIA [place], 1538) 04501: Academic Affairs Assistant/Techni estefani ID = [id number] for Kingsley Haley POCT-GLUCOSE [id number] 08:56:00 Test Item Value Reference Range Interpretation Comments POC-GLUCOSE METER 85 mg/dL 70-110 : TESTED A T [facility] 6720 (BEAKER) (test code = [facility], 153) 75881: Academic Affairs Assistant/Techni estefani ID = [id number] for Kingsley Lagunas POCT-GLUCOSE [id number] 22:47:00 Test Item Value Reference Range Interpretation Comments POC-GLUCOSE METER 119 mg/dL 70-110 H : TESTED A T [facility] 6720 (BEAKER) (test code = [facility], 153) 83172: Academic Affairs Assistant/Techni estefani ID = [id number] for REJI MONTOYA POCT-GLUCOSE [id number] 16:45:00 Test Item Value Reference Range Interpretation Comments POC-GLUCOSE METER 123 mg/dL 70-110 H : TESTED A T [facility] 6720 (BEAKER) (test code = [facility], 153) 63163: Academic Affairs Assistant/Techni estefani ID = [id number] for PRINCESS LAURA POCT-GLUCOSE [id number] 11:29:00 Test Item Value Reference Range Interpretation Comments POC-GLUCOSE METER 129 mg/dL 70-110 H : TESTED A T [facility] 6720 (BEAKER) (test code = [facility], 153) 95638: Academic Affairs Assistant/Techni estefani ID = [id number] for PRINCESS LAURA POCT-GLUCOSE [id number] 08:48:00 Test Item Value Reference Range Interpretation Comments POC-GLUCOSE METER 98 mg/dL 70-110 : TESTED A T [facility] 6720 (BEAKER) (test code = [facility], 153) 80914: Academic Affairs Assistant/Techni estefani ID = [id number] for PRINCESS LANCE BASIC METABOLIC [id number] 06:32:00 Test Item Value Reference Range Interpretation [...] S NOT APPLICABLE FOR DIALYSIS PATIEN TS. Academic Affairs Assistant ID - [id number] (HEMOGRAM ONLY)2020-05-31 05:42:00 Test [...] 0-0 (BEAKER) (test code = 413) POCT-GLUCOSE [id number] 21:12:00 Test Item Value Reference Range Interpretation Comments POC-GLUCOSE METER 169 mg/dL 70-110 H : TESTED A T [facility] 6720 (BEAKER) (test code = [facility], [facility]) 22165: Academic Affairs Assistant/Techni estefani ID = [id number] for Zoraida Handley POCT-GLUCOSE [id number] 16:05:00 Test Item Value Reference Range Interpretation Comments POC-GLUCOSE METER 158 mg/dL 70-110 H : TESTED A T [facility] 6720 (BEAKER) (test code = [facility], [facility]) 77888: Academic Affairs Assistant/Techni estefani ID = [id number] for MELODY DOS SANTOS POCT-GLUCOSE [id number] 12:40:00 Test Item Value Reference Range Interpretation Comments POC-GLUCOSE METER 113 mg/dL 70-110 H : TESTED A T [facility] 6720 (BEAKER) (test code = [facility], [facility]) 45975: Academic Affairs Assistant/Techni estefani ID = [id number] for MELODY DOS SANTOS SPIN/CONCENTRATION [id number] 09:31:00 Test Item Value Reference Range Interpretation Comments CONCENTRATION CHARGED (BEAKER) (test Done code = 2657) POCT-GLUCOSE [id number] 08:07:00 Test Item Value Reference Range Interpretation Comments POC-GLUCOSE METER 116 mg/dL 70-110 H : TESTED A T [facility] 6720 (BEAKER) (test code = [facility], 153) 95819: Academic Affairs Assistant/Techni estefani ID = [id number] for MELODY DOS SANTOS POCT-GLUCOSE [id number] 21:03:00 Test Item Value Reference Range Interpretation Comments POC-GLUCOSE METER 194 mg/dL 70-110 H : TESTED A T [facility] 6720 (BEAKER) (test code = [facility], [facility]) 47786: Academic Affairs Assistant/Techni estefani ID = [id number] for REJI MONTOYA HEPATITIS B SURFACE [id number] 19:08:00 Test Item Value Reference Range Interpretation Comments HEPATITIS B SURFACE ANTIGEN (2) Nonreactive Nonreactive (BEAKER) (test code = 2585) Specimen is considered negative for HBsAg.POCT-GLUCOSE [id number] 17:02:00 Test Item Value Reference Range Interpretation Comments POC-GLUCOSE METER 142 mg/dL 70-110 H : TESTED A T [facility] 6720 (BEAKER) (test code = DASIA Flannery [facility], 1538) 36161: Academic Affairs Assistant/Techni estefani ID = [id number] for EDSON MEJIA GLUCOSE-STAT [id number] 07:13:00 Test Item Value Reference Range Interpretation Comments GLUCOSE RANDOM (BEAKER) (test code 122 mg/dL 70-110 H = 652) HGB/HCT (H&H) - STAT [id number] 07:13:00 Test Item Value Reference Range Interpretation Comments HEMOGLOBIN (BEAKER) (test code = 10.0 GM/DL 13.0-16.8 L 410) HEMATOCRIT (BEAKER) (test code = 29.0 % 40.0-50.0 L 411) POTASSIUM-STAT [id number] 07:11:00 Test Item Value Reference Range Interpretation Comments POTASSIUM (BEAKER) (test code = 4.6 meq/L 3.6-5.5 379) POCT-GLUCOSE [id number] 06:01:00 Test Item Value Reference Range Interpretation Comments POC-GLUCOSE METER 118 mg/dL 70-110 H : TESTED A T [facility] 6720 (BEAKER) (test code SHENA [facility], = 1538) 68157: Academic Affairs Assistant/Techni estefani ID = [id number] for KIEL AKERS SARS-COV2/RT-PCR ([facility])2020-05-28 03:28:00 Test Item Value Reference Range Interpretation Comments SARS-COV2/RT-PCR (test Negative Not Detected, Negative, code = 3905598) See external report for linked test SARS-COV-[address] [facility] KEELY (test code = 7617050) Negative result for this test determines that [...] the Giles SARS-CoV-2 assay.Fact Sheet for Healthcare Providers:https://www.SportStream.giles/ari/RT_SAR M-UgM-6_CMM_Jdhu_Tknev_11-045127.pdfFact Sheet for Healthcare Patients:https://www.SportStream.giles/s al/FI_AVCF-MuH-4_Zrapplo_Hxvi_Ftzgw_BN_24-010386T1.pdfPerforming Laboratory:[facility], [place] [address]KIF AND CREATININE [id number] 14:16:00 Test Item Value Reference Range Interpretation Comments BLOOD UREA NITROGEN 60 mg/dL 7-21 H (NOE) (test code = 354) CREATININE (NADJAAKER) 7.43 mg/dL 0.57-1.25 H (test code = 358) BUN/CREAT RATIO 8 For a normal (BEAKER) (test code individu al on a = 0334454647) normal diet, t he reference inter anthony for the mass ra chuck ranges between 12:1 and 20:1 (BUN i n mg/dL/creatinin e in mg/dL) EGFR (NADJAAKER) (test 8 mL/min/1.73 ESTIMAT ED GFR IS code = 1092) sq m NOT ACCURATE CREATININE CLEARANCE IN PREDICTING GLOMERULAR FILTRATION RATE . ESTIMATED GFR I S NOT APPLICABLE FOR DIALYSIS PATIEN TS. Academic Affairs Assistant ID - ANTONY [id number] 14:15:00 Test Item Value Reference Range Interpretation Comments SODIUM (BEAKER) (test code = 381) 136 meq/L 136-145 POTASSIUM (BEAKER) (test code = 4.0 meq/L 3.5-5.1 379) CHLORIDE (BEAKER) (test code = 382) 96 meq/L 98-107 L CO2 (BEAKER) (test code = 355) 25 meq/L 22-29 Academic Affairs Assistant ID - ANTONY [id number] 14:15:00 Test Item Value Reference Range Interpretation Comments GLUCOSE RANDOM (BEAKER) (test code 164 mg/dL 70-105 H = 652) Academic Affairs Assistant ID - ANTONY [id number] 14:01:00 Test Item Value Reference Range Interpretation Comments PROTIME (BEAKER) (test 14.8 seconds 11.9-14.2 H code = 759) INR (BEAKER) (test 1.19 See_Comment [Automat ed code = 370) message] The Decisionlink stem which generated this result transmitted reference [...] is 2.5-3.5 for patients with mechanical heart valves.[id number] 13:54:00 Test Item Value Reference Range Interpretation Comments HEMOGLOBIN (BEAKER) (test code = 10.3 GM/DL 13.7-17.5 L 410) Academic Affairs Assistant ID - [id number] CULTURE + SMEAR (NON-SPUTUM)2020-04-29 [...] code = 994) seen FUNGUS CULTURE + [id number] 00:50:00 Test Item Value Reference Range Interpretation Comments CULTURE (BEAKER) (test No fungus isolated in code = 1095) 28 days FUNGUS SMEAR (BEAKER) No fungi seen (test code = 1406) BASIC METABOLIC [id number] 16:48:00 Test Item Value Reference Range Interpretation [...] = CA) 8.4 MG/DL 8.5-10.1 L SARS-COV2/RT-PCR ([facility])2020-03-27 14:01:00 Test Item Value Reference Range Interpretation Comments SARS-COV2/RT-PCR (test Negative Not Detected, Negative, code = 1915702) See external report for linked test SARS-COV-2 PERFORMING LAB [facility] (test code = 0218727) Negative result for this test determines that [...] of the Act.Fact Sheet for Healthcare Prov iders:https://www.Lenskart.com/sites/default/files/product/documents/Fact_Sheet_HC _Byangglez_Zmez_ARZO-TvL-1.pdfFact Sheet for Healthcare Patients:https://www.Lenskart.com/sites/default/files/product/docume nts/Ctes_Ujghc_Lcreanqt_Bmud_RWVZ-BlP-2.pdfPerforming Laboratory:[facility], [place] [address]OHZQS CULTURE + GRAM [id number] 09:53:00 Test Item Value Reference Range Interpretation [...] = 25) GRAM STAIN RESULT <1+ WBCs (AKER) (test code = 1123) GRAM STAIN RESULT No organisms seen ([facility]) (test code = 792551) POCT-GLUCOSE [id number] 07:57:00 Test Item Value Reference Range Interpretation Comments POC-GLUCOSE METER 87 mg/dL 70-110 : TESTED A T [facility] 6720 ([facility]) (test code = [facility], 153) 76793: Academic Affairs Assistant/Techni estefani ID = [id number] for Alix Jo HEMOGLOBIN AND [id number] 06:56:00 Test Item Value Reference Range Interpretation Comments HEMOGLOBIN (BEAKER) (test code = 8.7 GM/DL 13.7-17.5 L 410) HEMATOCRIT (AKER) (test code = 28.0 % 40.1-51.0 L 411) Academic Affairs Assistant ID - [id number]-GLUCOSE [id number] 00:03:00 Test Item Value Reference Range Interpretation Comments POC-GLUCOSE METER 144 mg/dL 70-110 H : TESTED A T [facility] 6720 (BEAKER) (test code = [facility], 1538) 25740: Academic Affairs Assistant/Techni estefani ID = [id number] for CRYSTAL RANGEL POCT-GLUCOSE [id number] 18:10:00 Test Item Value Reference Range Interpretation Comments POC-GLUCOSE METER 117 mg/dL 70-110 H : TESTED A T [facility] 6720 (BEAKER) (test code = [facility], 1538) 32220: Academic Affairs Assistant/Techni estefani ID = [id number] for Avery Levy BASIC METABOLIC [id number] 16:25:00 Test Item Value Reference Range Interpretation [...] S NOT APPLICABLE FOR DIALYSIS PATIEN TS. Academic Affairs Assistant ID Benjie HARDY [id number] 16:08:00 Test Item Value Reference Range Interpretation Comments PHOSPHORUS (BEAKER) (test code = 4.1 mg/dL 2.3-4.7 604) Academic Affairs Assistant ID Benjie HARDY FCBC W/PLT COUNT & AUTO [id number] 15:56:00 Test Item Value Reference Range Interpretation [...] PERCENT (BEAKER) (test code = 2801) POCT-GLUCOSE [id number] 11:29:00 Test Item Value Reference Range Interpretation Comments POC-GLUCOSE METER 102 mg/dL 70-110 : TESTED A T [facility] 6720 (BEAKER) (test code = [facility], 1538) 52402: Academic Affairs Assistant/Techni estefani ID = [id number] for ESTEBAN QUULISESL, JAD POCT-GLUCOSE [id number] 09:21:00 Test Item Value Reference Range Interpretation Comments POC-GLUCOSE METER 94 mg/dL 70-110 : TESTED A T [facility] 6720 (BEAKER) (test code = [facility], 1538) 34137: Academic Affairs Assistant/Techni estefani ID = [id number] for ESQU IVEL, JAD POCT-GLUCOSE [id number] 08:43:00 Test Item Value Reference Range Interpretation Comments POC-GLUCOSE METER 68 mg/dL 70-110 L : TESTED A T [facility] 6720 ([facility]) (test code = [facility], 153) 02904: Academic Affairs Assistant/Techni estefani ID = [id number] for JAD MICHAEL FUNGUS CULTURE + [id number] 00:31:00 Test Item Value Reference Range Interpretation Comments CULTURE ([facility]) A 1+ Cami (test code = 1095) parapsilo sis FUNGUS SMEAR No fungi seen ([facility]) (test code = 1406) POCT-GLUCOSE [id number] 22:45:00 Test Item Value Reference Range Interpretation Comments POC-GLUCOSE METER 100 mg/dL 70-110 : TESTED A T [facility] 6720 ([facility]) (test code = [facility], 153) 68929: Academic Affairs Assistant/Techni estefani ID = [id number] for TEJINDER MORALES POCT-GLUCOSE [id number] 21:50:00 Test Item Value Reference Range Interpretation Comments POC-GLUCOSE METER 121 mg/dL 70-110 H : TESTED A T [facility] 6720 ([facility]) (test code = [facility], 1538) 76224: Academic Affairs Assistant/Techni estefani ID = [id number] for Regis anne, Shruthi POCT-GLUCOSE [id number] 17:35:00 Test Item Value Reference Range Interpretation Comments POC-GLUCOSE METER 117 mg/dL 70-110 H : TESTED A T [facility] 6720 ([facility]) (test code = [facility], 1538) 52919: Academic Affairs Assistant/Techni estefani ID = [id number] for CLAUDIA STEVENMerly, AMDAA POCT-GLUCOSE [id number] 11:29:00 Test Item Value Reference Range Interpretation Comments POC-GLUCOSE METER 92 mg/dL 70-110 : TESTED A T [facility] 6720 ([facility]) (test code = [facility], 153) 78254: Academic Affairs Assistant/Techni estefani ID = [id number] for CHARITY WING, AMADA POCT-GLUCOSE [id number] 07:20:00 Test Item Value Reference Range Interpretation Comments POC-GLUCOSE METER 76 mg/dL 70-110 : TESTED A T [facility] 6720 (BEAKER) (test code = [facility], 153) 24719: Academic Affairs Assistant/Techni estefani ID = [id number] for AMADA DUKES POCT-GLUCOSE [id number] 21:24:00 Test Item Value Reference Range Interpretation Comments POC-GLUCOSE METER 199 mg/dL 70-110 H : TESTED A T [facility] 6720 (BEAKER) (test code = [facility], 153) 02265: Academic Affairs Assistant/Techni estefani ID = [id number] for TEJINDER MORALES POCT-GLUCOSE [id number] 18:07:00 Test Item Value Reference Range Interpretation Comments POC-GLUCOSE METER 135 mg/dL 70-110 H : TESTED A T [facility] 6720 (BEAKER) (test code = [facility], 153) 20324: Academic Affairs Assistant/Techni estefani ID = [id number] for AMADA MEDRANO CBC W/PLT COUNT & AUTO [id number] 15:25:00 Test Item Value Reference Range Interpretation [...] PERCENT (BEAKER) (test code = 2801) POCT-GLUCOSE [id number] 11:52:00 Test Item Value Reference Range Interpretation Comments POC-GLUCOSE METER 91 mg/dL 70-110 : TESTED A T [facility] 6720 (BEAKER) (test code = [facility], 153) 43962: Academic Affairs Assistant/Techni estefani ID = [id number] for AMADA DUKES POCT-GLUCOSE [id number] 07:39:00 Test Item Value Reference Range Interpretation Comments POC-GLUCOSE METER 92 mg/dL 70-110 : TESTED A T [facility] 6720 (BEAKER) (test code = [facility], 153) 67573: Academic Affairs Assistant/Techni estefani ID = [id number] for AMADA DUKES BASIC METABOLIC [id number] 07:22:00 Test Item Value Reference Range Interpretation [...] S NOT APPLICABLE FOR DIALYSIS PATIEN TS. Academic Affairs Assistant ID - PIAYA LPOCT-GLUCOSE [id number] 21:35:00 Test Item Value Reference Range Interpretation Comments POC-GLUCOSE METER 115 mg/dL 70-110 H : TESTED A T [facility] 6720 ([facility]) (test code = [facility], 153) 92354: Academic Affairs Assistant/Techni estefani ID = [id number] for CRYSTAL RANGEL POCT-GLUCOSE [id number] 17:07:00 Test Item Value Reference Range Interpretation Comments POC-GLUCOSE METER 124 mg/dL 70-110 H : TESTED A T [facility] 6720 ([email or web address]) (test code = [facility], 1538) 17927: Academic Affairs Assistant/Techni estefani ID = [id number] for Alix Guerra POCT-GLUCOSE [id number] 12:54:00 Test Item Value Reference Range Interpretation Comments POC-GLUCOSE METER 96 mg/dL 70-110 : TESTED A T [facility] 6720 ([email or web address]) (test code = [facility], 1538) 11686: Academic Affairs Assistant/Techni estefani ID = [id number] for COLLINS SIFUENTES POCT-GLUCOSE [id number] 08:06:00 Test Item Value Reference Range Interpretation Comments POC-GLUCOSE METER 83 mg/dL 70-110 : TESTED A T [facility] 6720 ([email or web address]) (test code = [facility], 1538) 71969: Academic Affairs Assistant/Techni estefani ID = [id number] for COLLINS SIFUENTES BASIC METABOLIC [id number] 07:36:00 Test Item Value Reference Range Interpretation [...] S NOT APPLICABLE FOR DIALYSIS PATIEN TS. Academic Affairs Assistant ID - PIAYA LPOCT-GLUCOSE [id number] 21:38:00 Test Item Value Reference Range Interpretation Comments POC-GLUCOSE METER 130 mg/dL 70-110 H : TESTED A T [facility] 6720 (BEAKER) (test code = [facility], 1538) 06541: Academic Affairs Assistant/Techni estefani ID = [id number] for SA HIGGINS, CRYSTAL POCT-GLUCOSE [id number] 16:28:00 Test Item Value Reference Range Interpretation Comments POC-GLUCOSE METER 127 mg/dL 70-110 H : TESTED A T [facility] 6720 (BEAKER) (test code = [facility], 1538) 07695: Academic Affairs Assistant/Techni estefani ID = [id number] for ES QUIVEL, JAD POCT-GLUCOSE [id number] 11:41:00 Test Item Value Reference Range Interpretation Comments POC-GLUCOSE METER 143 mg/dL 70-110 H : TESTED A T [facility] 6720 (BEAKER) (test code = [facility], 1538) 06582: Academic Affairs Assistant/Techni estefani ID = [id number] for ES QUIVEL, JAD POCT-GLUCOSE [id number] 08:03:00 Test Item Value Reference Range Interpretation Comments POC-GLUCOSE METER 86 mg/dL 70-110 : TESTED A T [facility] 6720 (BEAKER) (test code = DASIA Flannery [place], 1538) 04212: Academic Affairs Assistant/Techni estefani ID = [id number] for JAD MICHAEL BASIC METABOLIC [id number] 07:41:00 Test Item Value Reference Range Interpretation [...] S NOT APPLICABLE FOR DIALYSIS PATIEN TS. Academic Affairs Assistant ID - JAQUELINE MCBC W/PLT COUNT & AUTO [id number] 07:15:00 Test Item Value Reference Range Interpretation [...] PERCENT (BEAKER) (test code = 2801) POCT-GLUCOSE [id number] 21:13:00 Test Item Value Reference Range Interpretation Comments POC-GLUCOSE METER 146 mg/dL 70-110 H : TESTED A T [facility] 6720 (BEAKER) (test code = [facility], 1538) 00429: Academic Affairs Assistant/Techni estefani ID = [id number] for CRYSTAL RANGEL POCT-GLUCOSE [id number] 17:37:00 Test Item Value Reference Range Interpretation Comments POC-GLUCOSE METER 140 mg/dL 70-110 H : TESTED A T [facility] 6720 (BEAKER) (test code = [facility], 1538) 95242: Academic Affairs Assistant/Techni estefani ID = [id number] for JAD SALGUERO POCT-GLUCOSE [id number] 13:12:00 Test Item Value Reference Range Interpretation Comments POC-GLUCOSE METER 78 mg/dL 70-110 : TESTED A T [facility] 6720 (BEAKER) (test code = [facility], 1538) 19842: Academic Affairs Assistant/Techni estefani ID = [id number] for JAD MICHAEL POCT-GLUCOSE [id number] 07:32:00 Test Item Value Reference Range Interpretation Comments POC-GLUCOSE METER 77 mg/dL 70-110 : TESTED A T [facility] 6720 (BEAKER) (test code = [facility], 1538) 57127: Academic Affairs Assistant/Techni estefani ID = [id number] for JAD MICHAEL BASIC METABOLIC [id number] 07:14:00 Test Item Value Reference Range Interpretation [...] S NOT APPLICABLE FOR DIALYSIS PATIEN TS. Academic Affairs Assistant ID - [id number] 07:04:00 Test Item Value Reference Range Interpretation Comments PHOSPHORUS (BEAKER) (test code = 5.2 mg/dL 2.3-4.7 H 604) Academic Affairs Assistant ID - ADMINPOCT-GLUCOSE [id number] 21:39:00 Test Item Value Reference Range Interpretation Comments POC-GLUCOSE METER 148 mg/dL 70-110 H : TESTED A T [facility] 6720 (BEAKER) (test code = [facility], [facility]) 13369: Academic Affairs Assistant/Techni estefani ID = [id number] for TEJINDER MORALES POCT-GLUCOSE [id number] 17:38:00 Test Item Value Reference Range Interpretation Comments POC-GLUCOSE METER 114 mg/dL 70-110 H : TESTED A T [facility] 6720 (BEAKER) (test code = [facility], [facility]) 73338: Academic Affairs Assistant/Techni estefani ID = [id number] for CLAUDIA GALAVIZ, AMADA POCT-GLUCOSE [id number] 16:11:00 Test Item Value Reference Range Interpretation Comments POC-GLUCOSE METER 93 mg/dL 70-110 : TESTED A T [facility] 6720 (BEAKER) (test code = [facility], [facility]) 56900: Academic Affairs Assistant/Techni estefani ID = [id number] for CHARITY DIMAS AMADA POCT-GLUCOSE [id number] 14:27:00 Test Item Value Reference Range Interpretation Comments POC-GLUCOSE METER 98 mg/dL 70-110 : TESTED A T [facility] 6720 (BEAKER) (test code = [facility], [facility]) 10847: Academic Affairs Assistant/Techni estefani ID = [id number] for ANA LAURA OR, TEIKA POCT-GLUCOSE [id number] 07:48:00 Test Item Value Reference Range Interpretation Comments POC-GLUCOSE METER 101 mg/dL 70-110 : TESTED A T [facility] 6720 (BEAKER) (test code = [facility], [facility]) 70324: Academic Affairs Assistant/Techni estefani ID = [id number] for AYLA KELLOGG POCT-GLUCOSE [id number] 07:24:00 Test Item Value Reference Range Interpretation Comments POC-GLUCOSE METER 101 mg/dL 70-110 : TESTED A T [facility] 6720 (BEAKER) (test code = [facility], [facility]) 85321: Academic Affairs Assistant/Techni estefani ID = [id number] for CLAUDIA ROSALESINEZ, AMADA SARS-COV2/RT-PCR ([facility])2020-03-20 07:17:00 Test Item Value Reference Range Interpretation Comments SARS-COV2/RT-PCR (test Negative Not Detected, Negative, code = 7562750) See external report for linked test SARS-COV-[address] [facility] KE[facility] (test code = 2720632) Negative result for this test determines that [...] the Giles SARS-CoV-2 assay.Fact Sheet for Healthcare Providers:https://www.SportStream.giles/ari/RT_SAR E-QsR-6_VSM_Vzgn_Zkvvx_16-357100.pdfFact Sheet for Healthcare Patients:https://www.SportStream.giles/s al/RU_RRXT-RzN-0_Nwscebu_Qele_Hlicc_VV_19-174671U2.pdfPerforming Laboratory:[address] [place] [address] POCT-GLUCOSE [id number] 21:54:00 Test Item Value Reference Range Interpretation Comments POC-GLUCOSE METER 155 mg/dL 70-110 H : TESTED A T [facility] 6720 (BEAKER) (test code = [facility], 153) 44763: Academic Affairs Assistant/Techni estefani ID = [id number] for TEJINDER MORALES ANAEROBIC [id number] 19:28:00 Test Item Value Reference Range Interpretation Comments CULTURE (BEAKER) (test No anaerobes isolated code = 1095) ANAEROBIC [id number] 19:23:00 Test Item Value Reference Range Interpretation Comments CULTURE (BEAKER) (test No anaerobes isolated code = 1095) POCT-GLUCOSE [id number] 17:26:00 Test Item Value Reference Range Interpretation Comments POC-GLUCOSE METER 128 mg/dL 70-110 H : TESTED A T [facility] 6720 (BEAKER) (test code = [facility], 153) 95055: Academic Affairs Assistant/Techni estefani ID = [id number] for AMADA MEDRANO POCT-GLUCOSE [id number] 12:04:00 Test Item Value Reference Range Interpretation Comments POC-GLUCOSE METER 93 mg/dL 70-110 : TESTED A T [facility] 67[facility] (BEAKER) (test code = [facility], 153) 61998: Academic Affairs Assistant/Techni estefain ID = [id number] for AMADA DUKES BASIC METABOLIC [id number] 09:28:00 Test Item Value Reference Range Interpretation [...] S NOT APPLICABLE FOR DIALYSIS PATIEN TS. Academic Affairs Assistant ID - PIAYA LPOCT-GLUCOSE [id number] 21:30:00 Test Item Value Reference Range Interpretation Comments POC-GLUCOSE METER 133 mg/dL 70-110 H : TESTED A T [facility] 67[facility] (BEAKER) (test code = [facility], 1538) 53387: Academic Affairs Assistant/Techni estefani ID = [id number] for CRYSTAL RANGEL POCT-GLUCOSE [id number] 19:29:00 Test Item Value Reference Range Interpretation Comments POC-GLUCOSE METER 191 mg/dL 70-110 H : TESTED A T [facility] 6720 (BEAKER) (test code = [facility], 1538) 03148: Academic Affairs Assistant/Techni estefani ID = [id number] for MARIFER WEEKS POCT-GLUCOSE [id number] 11:31:00 Test Item Value Reference Range Interpretation Comments POC-GLUCOSE METER 119 mg/dL 70-110 H : TESTED A T [facility] 6720 (BEAKER) (test code = [facility], 1538) 28549: Academic Affairs Assistant/Techni estefani ID = [id number] for JAD SALGUERO POCT-GLUCOSE [id number] 07:32:00 Test Item Value Reference Range Interpretation Comments POC-GLUCOSE METER 115 mg/dL 70-110 H : TESTED A T [facility] 6720 (BEAKER) (test code = [facility], 1538) 47804: Academic Affairs Assistant/Techni estefani ID = [id number] for JAD SALGUERO BASIC METABOLIC [id number] 06:39:00 Test Item Value Reference Range Interpretation [...] S NOT APPLICABLE FOR DIALYSIS PATIEN TS. Academic Affairs Assistant ID - PIAYA LCBC W/PLT COUNT & AUTO [id number] 06:01:00 Test Item Value Reference Range Interpretation [...] PERCENT (BEAKER) (test code = 2801) POCT-GLUCOSE [id number] 21:16:00 Test Item Value Reference Range Interpretation Comments POC-GLUCOSE METER 145 mg/dL 70-110 H : TESTED A T [facility] 6720 (BEAKER) (test code = [facility], 1538) 64655: Academic Affairs Assistant/Techni estefani ID = [id number] for CRYSTAL RANGEL TISSUE [id number] 19:02:00Surgical Pathology Report Case: [id number] Authorizing Provider: Star Cloud DPM Collected: 03/13/2020 12:32 PM Ordering Location: [facility] Received: 03/13/2020 02:59 PM PERIOPERATIVE SERVICES Pathologist: Vandana Beverly MD Specimen: Metatarsal, Right, base of the first metatarsal bone RIGHT FOOT, BASE OF 1ST METATARSAL, NON- HEALING WOUND, DEBRIDEMENT: - GANGRENOUS NECROSIS INVOLVING SKIN AND SUBCUTANEOUS TISSUE - ACUTE OSTEOMYELITIS, SEVERE Signing Pathologist Direct Phone Line: [phone] signed by Vandana Beverly MD on 03/17/2020 at 7:02 [id number]; [id number] surgical wound, sequela Metatarsal, rightReceived in formalin [...] reveals a gardner-yellow, firm, trabeculated cut surface. Wort Extractor sections are submitted as follows:Section codeA1-skin and soft tcllguA3-M2-iabt following decalcificationPilar LWE Caraballo HT (ASCP)PERFORMEDThe interpretation of this case included the use of immunohistochemistry or special stains.Control Slides Examined: In-house known positive controls were evaluated along with the test tissue. These control slides run alongside of the patients sample show appropriate staining. Internal positive and negative controls when availableare evaluated Immunohistochemistry technical testing was performed at [facility], Pathology Laboratory where it was [...] to perform high complexity clinical laboratory testing.POCT-GLUCOSE [id number] 17:26:00 Test Item Value Reference Range Interpretation Comments POC-GLUCOSE METER 145 mg/dL 70-110 H : TESTED A T [facility] 6720 ([email or web address]) (test code = [employer] [facility], 1538) 30310: Academic Affairs Assistant/Techni estefani ID = [id number] for Ng Sabine rivera POCT-GLUCOSE [id number] 07:31:00 Test Item Value Reference Range Interpretation Comments POC-GLUCOSE METER 94 mg/dL 70-110 : TESTED A T [facility] 6720 ([email or web address]) (test code = [employer] [facility], 1538) 18849: Academic Affairs Assistant/Techni estefani ID = [id number] for JAD MICHAEL CBC W/PLT COUNT & AUTO [id number] 06:23:00 Test Item Value Reference Range Interpretation Comments WHITE BLOOD CELL COUNT (The JetstreamAKER) 9.5 K/ L 3.5-10.5 (test code = [...] PERCENT (BEAKER) (test code = 2801) POCT-GLUCOSE [id number] 06:14:00 Test Item Value Reference Range Interpretation Comments POC-GLUCOSE METER 97 mg/dL 70-110 : TESTED A T [facility] 6720 (BEAKER) (test code = [facility] Jose [facility], 1538) 82306: Academic Affairs Assistant/Techni estefani ID = [id number] for TEJINDER KITCHEN BASIC METABOLIC [id number] 06:14:00 Test Item Value Reference Range Interpretation [...] S NOT APPLICABLE FOR DIALYSIS PATIEN TS. Academic Affairs Assistant ID - EDASIBLOOD [id number] 00:01:00 Test Item Value Reference Range Interpretation Comments CULTURE (BEAKER) (test No growth in 5 days code = 1095) BLOOD [id number] 00:01:00 Test Item Value Reference Range Interpretation Comments CULTURE (BEAKER) (test No growth in 5 days code = 1095) POCT-GLUCOSE [id number] 21:35:00 Test Item Value Reference Range Interpretation Comments POC-GLUCOSE METER 169 mg/dL 70-110 H : TESTED A T [facility] 6720 (BEAKER) (test code = DASIA Flannery [facility], 1538) 02625: Academic Affairs Assistant/Techni estefani ID = [id number] for JONES MARIBELLTEJINDER MURPHY POCT-GLUCOSE [id number] 17:54:00 Test Item Value Reference Range Interpretation Comments POC-GLUCOSE METER 133 mg/dL 70-110 H : TESTED A T [facility] 6720 (BEAKER) (test code = [facility] Jose [facility], 153) 05599: Academic Affairs Assistant/Techni estefani ID = [id number] for JAQUI SKELTON POCT-GLUCOSE [id number] 12:50:00 Test Item Value Reference Range Interpretation Comments POC-GLUCOSE METER 110 mg/dL 70-110 : TESTED A T [facility] 6720 (BEAKER) (test code = [facility], 153) 77532: Academic Affairs Assistant/Techni estefani ID = [id number] for JAQUI SKELTON SURGICALLY OBTAINED CULTURE + GRAM [id number] 09:39:00 Test Item Value Reference Range Interpretation [...] organisms seen RESULT (BEAKER) (test code = 209008) SURGICALLY OBTAINED CULTURE + GRAM [id number] 09:39:00 Test Item Value Reference Range Interpretation [...] RESULT (BEAKER) negative rods (test code = 893435) POCT-GLUCOSE [id number] 08:12:00 Test Item Value Reference Range Interpretation Comments POC-GLUCOSE METER 88 mg/dL 70-110 : TESTED A T [facility] 6720 (BEAKER) (test code = [facility], 153) 56978: Academic Affairs Assistant/Techni estefani ID = [id number] for GAUTAM RUIZ (V), EFRAIN POCT-GLUCOSE [id number] 07:19:00 Test Item Value Reference Range Interpretation Comments POC-GLUCOSE METER 97 mg/dL 70-110 : TESTED A T [facility] 6720 (BEAKER) (test code = D[facility] [place], 1538) 62527: Academic Affairs Assistant/Techni estefani ID = [id number] for NATE JUAN BASIC METABOLIC [id number] 07:19:00 Test Item Value Reference Range Interpretation [...] S NOT APPLICABLE FOR DIALYSIS PATIEN TS. Academic Affairs Assistant ID - [id number] 07:08:00 Test Item Value Reference Range Interpretation Comments MAGNESIUM (BEAKER) (test code = 2.1 mg/dL 1.6-2.6 627) Academic Affairs Assistant ID - EDASICBC W/PLT COUNT & AUTO [id number] 06:30:00 Test Item Value Reference Range Interpretation [...] PERCENT (BEAKER) (test code = 2801) POCT-GLUCOSE [id number] 20:33:00 Test Item Value Reference Range Interpretation Comments POC-GLUCOSE METER 129 mg/dL 70-110 H : TESTED Vikas Tai [facility] 6720 (BEAKER) (test code = [facility] [place], 1538) 59467: Academic Affairs Assistant/Techni estefani ID = [id number] for JAD SALGUERO POCT-GLUCOSE [id number] 17:20:00 Test Item Value Reference Range Interpretation Comments POC-GLUCOSE METER 108 mg/dL 70-110 : TESTED A T [facility] 6720 (BEAKER) (test code = [facility], 1538) 25833: Academic Affairs Assistant/Techni estefani ID = [id number] for JERE RIVASL POCT-GLUCOSE [id number] 11:17:00 Test Item Value Reference Range Interpretation Comments POC-GLUCOSE METER 115 mg/dL 70-110 H : TESTED A T [facility] 6720 (BEAKER) (test code = [facility], 1538) 49908: Academic Affairs Assistant/Techni estefani ID = [id number] for OK BERTHA, ANYA POCT-GLUCOSE [id number] 08:18:00 Test Item Value Reference Range Interpretation Comments POC-GLUCOSE METER 87 mg/dL 70-110 : TESTED A T [facility] 6720 (BEAKER) (test code = [facility], 1538) 34167: Academic Affairs Assistant/Techni estefani ID = [id number] for ARIANNE GALLEGO, JOSEFINACHEL [id number] 07:32:00 Test Item Value Reference Range Interpretation Comments MAGNESIUM (BEAKER) (test code = 2.0 mg/dL 1.6-2.6 627) Academic Affairs Assistant ID - EDASIBASIC METABOLIC [id number] 07:32:00 Test Item Value Reference Range Interpretation [...] S NOT APPLICABLE FOR DIALYSIS PATIEN TS. Academic Affairs Assistant ID - EDASICBC W/PLT COUNT & AUTO [id number] 07:08:00 Test Item Value Reference Range Interpretation [...] PERCENT (BEAKER) (test code = 2801) POCT-GLUCOSE [id number] 22:22:00 Test Item Value Reference Range Interpretation Comments POC-GLUCOSE METER 180 mg/dL 70-110 H : TESTED A T [facility] 6720 (BEAKER) (test code = [facility], 1538) 17933: Academic Affairs Assistant/Techni estefani ID = [id number] for CRYSTAL RANGEL HEPATITIS B SURFACE [id number] 17:23:00 Test Item Value Reference Range Interpretation Comments HEPATITIS B SURFACE ANTIGEN (2) Nonreactive Nonreactive (BEAKER) (test code = 2585) Specimen is considered negative for HBsAg.SPIN/CONCENTRATION [id number] 14:24:00 Test Item Value Reference Range Interpretation Comments CONCENTRATION CHARGED (BEAKER) (test Done code = 2657) SPIN/CONCENTRATION [id number] 14:23:00 Test Item Value Reference Range Interpretation Comments CONCENTRATION CHARGED (BEAKER) (test Done code = 2657) POCT-GLUCOSE [id number] 12:00:00 Test Item Value Reference Range Interpretation Comments POC-GLUCOSE METER 84 mg/dL 70-110 : TESTED A T [facility] 6720 (BEAKER) (test code = [facility], 1538) 19217: Academic Affairs Assistant/Techni estefani ID = [id number] for AMADA DUKES BASIC METABOLIC [id number] 09:03:00 Test Item Value Reference Range Interpretation [...] S NOT APPLICABLE FOR DIALYSIS PATIEN TS. Academic Affairs Assistant ID - DANITZA [id number] 08:43:00 Test Item Value Reference Range Interpretation Comments MAGNESIUM (BEAKER) (test code = 2.4 mg/dL 1.6-2.6 627) Academic Affairs Assistant ID - DANITZA LPOCT-GLUCOSE [id number] 07:47:00 Test Item Value Reference Range Interpretation Comments POC-GLUCOSE METER 99 mg/dL 70-110 : TESTED A T [facility] 6720 (BEAKER) (test code = [facility], 153) 83641: Academic Affairs Assistant/Techni estefani ID = [id number] for AMADA DUKES POCT-GLUCOSE [id number] 22:12:00 Test Item Value Reference Range Interpretation Comments POC-GLUCOSE METER 139 mg/dL 70-110 H : TESTED A T [facility] 6720 (BEAKER) (test code = [facility], 153) 94706: Academic Affairs Assistant/Techni estefani ID = [id number] for JONES MARIBELLJEFFREY TEJINDER POCT-GLUCOSE [id number] 17:34:00 Test Item Value Reference Range Interpretation Comments POC-GLUCOSE METER 157 mg/dL 70-110 H : TESTED A T [facility] 6720 (BEAKER) (test code = [facility], 1538) 49603: Academic Affairs Assistant/Techni estefani ID = [id number] for DANK GALINDO (V), EFRAIN POCT-GLUCOSE [id number] 14:08:00 Test Item Value Reference Range Interpretation Comments POC-GLUCOSE METER 94 mg/dL 70-110 : TESTED A T [facility] 6720 (BEAKER) (test code = [facility], 1538) 41600: Academic Affairs Assistant/Techni estefani ID = [id number] for FLAN AGAN, ZENIA HGB/HCT (H&H) - STAT [id number] 10:02:00 Test Item Value Reference Range Interpretation Comments HEMOGLOBIN (BEAKER) (test code = 8.5 GM/DL 13.0-16.8 L 410) HEMATOCRIT (BEAKER) (test code = 25.0 % 40.0-50.0 L 411) POTASSIUM-STAT [id number] 09:56:00 Test Item Value Reference Range Interpretation Comments POTASSIUM (BEAKER) (test code = 3.6 meq/L 3.6-5.5 379) POCT-GLUCOSE [id number] 07:53:00 Test Item Value Reference Range Interpretation Comments POC-GLUCOSE METER 97 mg/dL 70-110 : TESTED A T [facility] 6720 (BEAKER) (test code = [facility], 1538) 84643: Academic Affairs Assistant/Techni estefani ID = [id number] for LATT IMFELIPA - FLETCHER, COLLINS POCT-GLUCOSE [id number] 22:01:00 Test Item Value Reference Range Interpretation Comments POC-GLUCOSE METER 173 mg/dL 70-110 H : TESTED A T [facility] 6720 (BEAKER) (test code = [facility], 1538) 23354: Academic Affairs Assistant/Techni estefani ID = [id number] for JAD SALGUERO POCT-GLUCOSE [id number] 18:20:00 Test Item Value Reference Range Interpretation Comments POC-GLUCOSE METER 161 mg/dL 70-110 H : TESTED A T [facility] 6720 (BEAKER) (test code [facility], = 1538) 95268: Academic Affairs Assistant/Techni estefani ID = [id number] for LATT IMORE - FLETCHER, COLLINS POCT-GLUCOSE [id number] 12:22:00 Test Item Value Reference Range Interpretation Comments POC-GLUCOSE METER 94 mg/dL 70-110 : TESTED A T [facility] 6720 (BEAKER) (test code = [facility], 1538) 27715: Academic Affairs Assistant/Techni estefani ID = [id number] for LATT IMORE - FLETCHER, COLLINS SARS-COV2/RT-PCR ([facility])2020-03-12 12:11:00 Test Item Value Reference Range Interpretation Comments SARS-COV2/RT-PCR (test code Negative Not Detected, Negative, = 6106098) See external report for linked test SARS-COV-[address] [facility] (test code = 6273258) Negative results do not preclude SARS-CoV-2 infection [...] of the Act.Fact Sheet for Healthcare Pro viders:https://www.[employer]/Documents/Xpert%20Xpress%20SARS%20CoV-2/Fact%20Sh eets/302-3802%88YBFB-EHX-9%20HEALTHCARE%20PROVIDERS%20FACT%20SHEET.pdfFact Sheet for Healthcare Patients:https://www.[employer]/Documents/Xpert%20Xpress%20SARS%20CoV-2/Fact%20Sheets/302-3801%20SARS-COV -2%20PATIENT%20FACT%20SHEET.pdfPerforming Laboratory:[facility], [place] [address]HKCS-QOVSXYN [id number] 08:44:00 Test Item Value Reference Range Interpretation Comments POC-GLUCOSE METER 92 mg/dL 70-110 : TESTED A T [facility] 6720 (NOE) (test code = [facility] [place], 1538) 35002: Academic Affairs Assistant/Techni estefani ID = [id number] for COLLINS SIFUENTES HEMOGLOBIN [id number] 08:17:00 Test Item Value Reference Range Interpretation Comments HEMOGLOBIN A1C (BEAKER) (test code = 5.6 % 4.3-6.1 368) HEPATIC FUNCTION [id number] 06:07:00 Test Item Value Reference Range Interpretation [...] code = < U/L 6-55 L 347) Academic Affairs Assistant ID - ADMINC-REACTIVE [id number] 06:06:00 Test Item Value Reference Range Interpretation Comments C-REACTIVE PROTEIN (BEAKER) (test 3.99 mg/dL 0.00-0.50 H code = 676) Academic Affairs Assistant ID - ADMINBASIC METABOLIC [id number] 06:06:00 Test Item Value Reference Range Interpretation [...] S NOT APPLICABLE FOR DIALYSIS PATIEN TS. Academic Affairs Assistant ID - ADMINPROTHROMBIN [id number] 04:50:00 Test Item Value Reference Range Interpretation [...] S NOT APPLICABLE FOR DIALYSIS PATIEN TS. Academic Affairs Assistant ID - PIZAYRA LOperator ID - PIZAYRA LCBC W/PLT COUNT & AUTO [id number] 23:42:00 Test Item Value Reference Range Interpretation [...] PERCENT (BEAKER) (test code = 2801) PROTHROMBIN [id number] 23:21:00 Test Item Value Reference Range Interpretation [...] 2.5-3.5 for patients wiht mechanical heart valves.POCT-GLUCOSE [id number] 22:00:00 Test Item Value Reference Range Interpretation Comments POC-GLUCOSE METER 203 mg/dL 70-110 H : TESTED A T [facility] 6720 (BEAKER) (test code = [facility] [place], 1538) 61252: Academic Affairs Assistant/Techni estefani ID = [id number] for ROJELIO [employer] CULTURE + SMEAR [...] long er being reported. FUNGUS CULTURE + [id number] 16:32:00 Test Item Value Reference Range Interpretation Comments CULTURE (BEAKER) (test No fungus isolated in code = 1095) 28 days FUNGUS SMEAR (BEAKER) No fungal elements seen (test code = 1406) FUNGUS CULTURE + [id number] 16:32:00 Test Item Value Reference Range Interpretation [...] bacilli (test code = 994) seen POCT-GLUCOSE [id number] 12:16:00 Test Item Value Reference Range Interpretation Comments POC-GLUCOSE METER 104 mg/dL 70-110 : TESTED A T [facility] 6720 (BEAKER) (test code = [facility], 1538) 66530: Academic Affairs Assistant/Techni estefani ID = [id number] for DA SGUPTA, JAYITA POCT-GLUCOSE [id number] 07:26:00 Test Item Value Reference Range Interpretation Comments POC-GLUCOSE METER 89 mg/dL 70-110 : TESTED A T [facility] 6720 (BEAKER) (test code = [facility], 1538) 41973: Academic Affairs Assistant/Techni estefani ID = [id number] for DASG UPTA, JAYITA SARS-COV2/RT-PCR ([facility])2020-01-22 07:13:00 Test Item Value Reference Range Interpretation Comments SARS-COV2/RT-PCR (test Negative Not Detected, Negative, code = 5544589) See external report for linked test SARS-COV-[address] [facility] KEELY (test code = 8270776) Negative result for this test determines that [...] the Giles SARS-CoV-2 assay.Fact Sheet for Healthcare Providers:https://www.[employer].giles/ari/RT_SAR J-XcR-8_FUM_Yukd_Kagkn_91-765856.pdfFact Sheet for Healthcare Patients:https://www.molecular.giles/s al/II_AJDM-XrU-4_Vfqinbq_Jibd_Ucrno_NW_01-960946D8.pdfPerforming Laboratory:[facility] [place] [address] BASIC METABOLIC [id number] 06:27:00 Test Item Value Reference Range Interpretation [...] S NOT APPLICABLE FOR DIALYSIS PATIEN TS. Academic Affairs Assistant ID - EDASIPOCT-GLUCOSE [id number] 21:15:00 Test Item Value Reference Range Interpretation Comments POC-GLUCOSE METER 123 mg/dL 70-110 H : TESTED A T [facility] 6720 (BEAKER) (test code [facility], = 1538) 33551: Academic Affairs Assistant/Techni estefani ID = [id number] for STUART SWARTZCTA HEPATITIS B SURFACE [id number] 18:16:00 Test Item Value Reference Range Interpretation Comments HEPATITIS B SURFACE ANTIGEN (2) Nonreactive Nonreactive (BEAKER) (test code = 2585) Specimen is considered negative for HBsAg.POCT-GLUCOSE [id number] 16:50:00 Test Item Value Reference Range Interpretation Comments POC-GLUCOSE METER 110 mg/dL 70-110 : TESTED A T [facility] 6720 (BEAKER) (test code = [facility], 1538) 49763: Academic Affairs Assistant/Techni estefani ID = [id number] for MONISHA SCHAEFER POCT-GLUCOSE [id number] 07:55:00 Test Item Value Reference Range Interpretation Comments POC-GLUCOSE METER 75 mg/dL 70-110 : TESTED A T [facility] 6720 (BEAKER) (test code = [facility], 153) 99061: Academic Affairs Assistant/Techni estefani ID = [id number] for MONISHA BLANCHARD BASIC METABOLIC [id number] 05:59:00 Test Item Value Reference Range Interpretation [...] S NOT APPLICABLE FOR DIALYSIS PATIEN TS. Academic Affairs Assistant ID - EDASIPOCT-GLUCOSE [id number] 19:48:00 Test Item Value Reference Range Interpretation Comments POC-GLUCOSE METER 133 mg/dL 70-110 H : TESTED A T [facility] 6720 (BEAKER) (test code = [facility], 153) 23764: Academic Affairs Assistant/Techni estefani ID = [id number] for MALGORZATA MORRISON (V)CHRIS POCT-GLUCOSE [id number] 16:50:00 Test Item Value Reference Range Interpretation Comments POC-GLUCOSE METER 106 mg/dL 70-110 : TESTED A T [facility] 6720 (BEAKER) (test code = [facility], 153) 12050: Academic Affairs Assistant/Techni estefani ID = [id number] for GISELA JACINTO, SHABNAM POCT-GLUCOSE [id number] 11:54:00 Test Item Value Reference Range Interpretation Comments POC-GLUCOSE METER 104 mg/dL 70-110 : TESTED A T [facility] 6720 (BEAKER) (test code = DASIA Flannery [facility], 1538) 37070: Academic Affairs Assistant/Techni estefani ID = [id number] for SHABNAM JOSE POCT-GLUCOSE [id number] 07:53:00 Test Item Value Reference Range Interpretation Comments POC-GLUCOSE METER 88 mg/dL 70-110 : PrevTst on Ambulance: (BEAKER) (test code = TESTED AT [facility] 6720 1538) SHENA [facility], [address]: Academic Affairs Assistant/Techni estefani ID = [id number] for SHABNAM KUMAR BASIC METABOLIC [id number] 04:56:00 Test Item Value Reference Range Interpretation [...] S NOT APPLICABLE FOR DIALYSIS PATIEN TS. Academic Affairs Assistant ID - EDASICBC W/PLT COUNT & AUTO [id number] 04:15:00 Test Item Value Reference Range Interpretation [...] PERCENT (BEAKER) (test code = 2801) POCT-GLUCOSE [id number] 20:55:00 Test Item Value Reference Range Interpretation Comments POC-GLUCOSE METER 128 mg/dL 70-110 H : TESTED A T [facility] 6720 (BEAKER) (test code = [place], 1538) 98459: Academic Affairs Assistant/Techni estefani ID = [id number] for FE RNANDO (V), KARI POCT-GLUCOSE [id number] 17:32:00 Test Item Value Reference Range Interpretation Comments POC-GLUCOSE METER 116 mg/dL 70-110 H : [facility] ([facility]AKER[facility] ([place], [address]: code = 1538) Academic Affairs Assistant/Techni estefani ID = [id number] for [place] SINDI LEÓN IN HEPATITIS B SURFACE [id number] 07:59:00 Test Item Value Reference Range Interpretation Comments HEPATITIS B SURFACE ANTIBODY < mIU/mL <8.0 (BEAKER) (test code = 647) Academic Affairs Assistant ID - ADMINBASIC METABOLIC [id number] 06:46:00 Test Item Value Reference Range Interpretation [...] S NOT APPLICABLE FOR DIALYSIS PATIEN TS. Academic Affairs Assistant ID - ADMINCBC W/PLT COUNT & AUTO [id number] 05:21:00 Test Item Value Reference Range Interpretation [...] code = 2801) HEPATITIS B CORE ANTIBODY, [id number] 03:01:00 Test Item Value Reference Range Interpretation Comments HEPATITIS B CORE TOTAL ANTIBODY Nonreactive Nonreactive (BEAKER) (test code = 497) Academic Affairs Assistant ID - ADMINPOCT-GLUCOSE [id number] 22:59:00 Test Item Value Reference Range Interpretation Comments POC-GLUCOSE METER 110 mg/dL 70-110 : TESTED A T [facility] 6720 [facility] (test code = DASIA Flannery [facility], 1538) 31683: Academic Affairs Assistant/Techni estefani ID = [id number] for Avery Levy POCT-GLUCOSE [id number] 12:01:00 Test Item Value Reference Range Interpretation Comments POC-GLUCOSE METER 107 mg/dL 70-110 : Notified RN/MD: (BEAKER) (test code = TESTED AT [facility] 6720 1538) [facility], [address]: Academic Affairs Assistant/Techni estefani ID = [id number] for HADLEY MELISSA POCT-GLUCOSE [id number] 07:44:00 Test Item Value Reference Range Interpretation Comments POC-GLUCOSE METER 95 mg/dL 70-110 : Notified RN/MD: TESTED (BEAKER) (test code = AT [facility] [address] [facility] 1538) [facility], [address]: Academic Affairs Assistant/Techni estefani ID = [id number] for HADLEY ARGUELLO BASIC METABOLIC [id number] 07:25:00 Test Item Value Reference Range Interpretation [...] S NOT APPLICABLE FOR DIALYSIS PATIEN TS. Academic Affairs Assistant ID - TIAGO CCBC W/PLT COUNT & AUTO [id number] 04:39:00 Test Item Value Reference Range Interpretation [...] PERCENT (BEAKER) (test code = 2801) POCT-GLUCOSE [id number] 22:19:00 Test Item Value Reference Range Interpretation Comments POC-GLUCOSE METER 115 mg/dL 70-110 H : TESTED A T [facility] 6720 (BEAKER) (test code = [facility], 1538) 47799: Academic Affairs Assistant/Techni estefani ID = [id number] for Wi sallie, Otelia POCT-GLUCOSE [id number] 16:56:00 Test Item Value Reference Range Interpretation Comments POC-GLUCOSE METER 106 mg/dL 70-110 : TESTED A T [facility] 6720 (BEAKER) (test code = [facility], 1538) 16222: Academic Affairs Assistant/Techni estefani ID = [id number] for ANNMARIE PENNINGTON POCT-GLUCOSE [id number] 12:23:00 Test Item Value Reference Range Interpretation Comments POC-GLUCOSE METER 130 mg/dL 70-110 H : TESTED A T [facility] 6720 (BEAKER) (test code = [facility], 1538) 22702: Academic Affairs Assistant/Techni estefani ID = [id number] for ANNMARIE PENNINGTON POCT-GLUCOSE [id number] 09:12:00 Test Item Value Reference Range Interpretation Comments POC-GLUCOSE METER 96 mg/dL 70-110 : TESTED A T [facility] 6720 (BEAKER) (test code = [facility], 1538) 49694: Academic Affairs Assistant/Techni estefani ID = [id number] for LIZZ ER, STEVE BASIC METABOLIC [id number] 06:45:00 Test Item Value Reference Range Interpretation [...] S NOT APPLICABLE FOR DIALYSIS PATIEN TS. Academic Affairs Assistant ID - JAQUELINE MCBC W/PLT COUNT & AUTO [id number] 05:59:00 Test Item Value Reference Range Interpretation [...] PERCENT (BEAKER) (test code = 2801) POCT-GLUCOSE [id number] 22:30:00 Test Item Value Reference Range Interpretation Comments POC-GLUCOSE METER 126 mg/dL 70-110 H : TESTED A T [facility] 6720 (BEAKER) (test code = [facility], 153) 91105: Academic Affairs Assistant/Techni estefani ID = [id number] for Wi alyciaiams, Otelia ANAEROBIC [id number] 19:52:00 Test Item Value Reference Range Interpretation Comments CULTURE (BEAKER) (test No anaerobes isolated code = 1095) ANAEROBIC [id number] 19:52:00 Test Item Value Reference Range Interpretation Comments CULTURE (BEAKER) (test No anaerobes isolated code = 1095) POCT-GLUCOSE [id number] 16:58:00 Test Item Value Reference Range Interpretation Comments POC-GLUCOSE METER 103 mg/dL 70-110 : TESTED A T [facility] 6720 (BEAKER) (test code = [facility], 153) 41589: Academic Affairs Assistant/Techni estefani ID = [id number] for LO PEZ, EVONNE VIAL POCT-GLUCOSE [id number] 11:48:00 Test Item Value Reference Range Interpretation Comments POC-GLUCOSE METER 140 mg/dL 70-110 H : TESTED A T [facility] 6720 (BEAKER) (test code = [facility], 153) 29688: Academic Affairs Assistant/Techni estefani ID = [id number] for Ca rrroll, Olga POCT-GLUCOSE [id number] 07:22:00 Test Item Value Reference Range Interpretation Comments POC-GLUCOSE METER 96 mg/dL 70-110 : TESTED A T [facility] 6720 (BEAKER) (test code = DASIA Flannery [place], 1538) 23430: Academic Affairs Assistant/Techni estefani ID = [id number] for Ambar Dominguez (cont ract) BASIC METABOLIC [id number] 06:35:00 Test Item Value Reference Range Interpretation [...] S NOT APPLICABLE FOR DIALYSIS PATIEN TS. Academic Affairs Assistant ID - EDASICBC W/PLT COUNT & AUTO [id number] 06:02:00 Test Item Value Reference Range Interpretation [...] PERCENT (BEAKER) (test code = 2801) POCT-GLUCOSE [id number] 22:01:00 Test Item Value Reference Range Interpretation Comments POC-GLUCOSE METER 151 mg/dL 70-110 H : TESTED A T [facility] 6720 (BEAKER) (test code = [facility], 153) 81720: Academic Affairs Assistant/Techni estefani ID = [id number] for MARGARITA MARCY ACOSTA POCT-GLUCOSE [id number] 17:02:00 Test Item Value Reference Range Interpretation Comments POC-GLUCOSE METER 121 mg/dL 70-110 H : TESTED A T [facility] 6720 (BEAKER) (test code = [facility], 153) 95061: Academic Affairs Assistant/Techni estefani ID = [id number] for HI DALGO, AGLAE POCT-GLUCOSE [id number] 10:53:00 Test Item Value Reference Range Interpretation Comments POC-GLUCOSE METER 114 mg/dL 70-110 H : TESTED A T [facility] 6720 (BEAKER) (test code = DASIA Flannery [facility], 153) 67683: Academic Affairs Assistant/Techni estefani ID = [id number] for EDSON MEJIA SURGICALLY OBTAINED CULTURE + GRAM [id number] 09:02:00 Test Item Value Reference Range Interpretation Comments CULTURE (BEAKER) SAME ORGANISM HAS A 1+ Garrett e organism (test code = BEEN ISOLATED FROM has been isolated 1095) CULTURES(S) OF THE from cult ures(s) of SAME BODY SITE the same body site WITHIN 3 DAYS. within 3 days . REPEAT Repeat IDENTIFICATION AND identific ation and SUSCEPT. TESTING susceptibil ity PERFORMED ONLY testing perfo rmed AFTER CONSULTATION only afte r WITH THE CLINICAL consultati on with MICROBIOLOGY LAB the [facility] microbiology laboratory.Refe r to previous [...] negative RESULT (BEAKER) rods (test code = 321232) POCT-GLUCOSE [id number] 07:42:00 Test Item Value Reference Range Interpretation Comments POC-GLUCOSE METER 85 mg/dL 70-110 : TESTED A T [facility] 6720 (BEAKER) (test code = [place], 153) 29655: Academic Affairs Assistant/Techni estefani ID = [id number] for SHARRI LGO, AGLAE BASIC METABOLIC [id number] 06:13:00 Test Item Value Reference Range Interpretation [...] S NOT APPLICABLE FOR DIALYSIS PATIEN TS. Academic Affairs Assistant ID - EDASICBC W/PLT COUNT & AUTO [id number] 05:33:00 Test Item Value Reference Range Interpretation [...] PERCENT (BEAKER) (test code = 2801) POCT-GLUCOSE [id number] 22:55:00 Test Item Value Reference Range Interpretation Comments POC-GLUCOSE METER 91 mg/dL 70-110 : TESTED A T [facility] 6720 (BEAKER) (test code = [facility], 153) 53224: Academic Affairs Assistant/Techni estefani ID = [id number] for DARRELL LUDWIG POCT-GLUCOSE [id number] 16:20:00 Test Item Value Reference Range Interpretation Comments POC-GLUCOSE METER 123 mg/dL 70-110 H : TESTED A T [facility] 6720 (BEAKER) (test code = [facility], 153) 27806: Academic Affairs Assistant/Techni estefani ID = [id number] for GRETCHEN RUBAYAAKOVAN POCT-GLUCOSE [id number] 11:41:00 Test Item Value Reference Range Interpretation Comments POC-GLUCOSE METER 142 mg/dL 70-110 H : TESTED A T [facility] 6720 (BEAKER) (test code = [place], 1538) 02352: Academic Affairs Assistant/Techni estefani ID = [id number] for REJI SNEED POCT-GLUCOSE [id number] 09:19:00 Test Item Value Reference Range Interpretation Comments POC-GLUCOSE METER 115 mg/dL 70-110 H : TESTED A T [facility] 6720 (BEAKER) (test code = [place], 1538) 59248: Academic Affairs Assistant/Techni estefani ID = [id number] for REJI SNEED BASIC METABOLIC [id number] 06:17:00 Test Item Value Reference Range Interpretation [...] S NOT APPLICABLE FOR DIALYSIS PATIEN TS. Academic Affairs Assistant ID - JAQUELINE MCBC W/PLT COUNT & AUTO [id number] 05:08:00 Test Item Value Reference Range Interpretation [...] PERCENT (BEAKER) (test code = 2801) POCT-GLUCOSE [id number] 21:32:00 Test Item Value Reference Range Interpretation Comments POC-GLUCOSE METER 138 mg/dL 70-110 H : TESTED A T [facility] 6720 (BEAKER) (test code = [place], 1538) 25735: Academic Affairs Assistant/Techni estefani ID = [id number] for HALI GARCIA SARS-COV2/RT-PCR ([facility])2020-01-13 16:42:00 Test Item Value Reference Range Interpretation Comments SARS-COV2/RT-PCR (test Negative Not Detected, Negative, code = 5927888) See external report for linked test SARS-COV-[address] [facility] KEELY (test code = 3074656) Negative result for this test determines that [...] the Giles SARS-CoV-2 assay.Fact Sheet for Healthcare Providers:https://www.SportStream.giles/ari/RT_SAR Z-SsK-7_ZZB_Ppbx_Gzmyd_26-157728.pdfFact Sheet for Healthcare Patients:https://www.molecular.giles/s al/TN_OZQT-ZvA-2_Mpynbgy_Wshs_Rmndm_TY_79-266329Z1.pdfPerforming Laboratory:[facility] [place] [address] POCT-GLUCOSE [id number] 15:53:00 Test Item Value Reference Range Interpretation Comments POC-GLUCOSE METER 177 mg/dL 70-110 H : TESTED A T [facility] 6720 (BEAKER) ([place], [address]: code = 1538) Academic Affairs Assistant/Techni estefani ID = [id number] for VINNY SANCHEZR IN POCT-GLUCOSE [id number] 11:29:00 Test Item Value Reference Range Interpretation Comments POC-GLUCOSE METER 132 mg/dL 70-110 H : TESTED A T [facility] 6720 (BEAKER) ([place], [address]: code = 1538) Academic Affairs Assistant/Techni estefani ID = [id number] for VINNY SANCHEZR IN SURGICALLY OBTAINED CULTURE + GRAM [id number] 08:54:00 Test Item Value Reference Range Interpretation Comments CULTURE (BEAKER) A 1+ Same org anism has been (test code = 1095) isolated from cultures(s) of the same bod y site within 3 days. Repeat identification and susceptibility testing performed only after consultation wi th the clinical microb iology laboratory.Refe r to previous cultur e ofPseudomonas a eruginosa POCT-GLUCOSE [id number] 07:31:00 Test Item Value Reference Range Interpretation Comments POC-GLUCOSE METER 124 mg/dL 70-110 H : TESTED A T [facility] 6720 (BEAKER) ([place], [address]: code = 1538) Academic Affairs Assistant/Techni estefani ID = [id number] for VINNY SANCHEZR IN POCT-GLUCOSE [id number] 22:46:00 Test Item Value Reference Range Interpretation Comments POC-GLUCOSE METER 185 mg/dL 70-110 H : TESTED A T [facility] 6720 (BEAKER) (test code = [place], 1538) 65408: Academic Affairs Assistant/Techni estefani ID = [id number] for ALLA MONTOYA POCT-GLUCOSE [id number] 16:38:00 Test Item Value Reference Range Interpretation Comments POC-GLUCOSE METER 153 mg/dL 70-110 H : TESTED A T [facility] 6720 (BEAKER) (test code = DASIA Flannery [facility], 1538) 71038: Academic Affairs Assistant/Techni estefani ID = [id number] for HADLEY MELISSA POCT-GLUCOSE [id number] 12:15:00 Test Item Value Reference Range Interpretation Comments POC-GLUCOSE METER 151 mg/dL 70-110 H : Notified RN/MD: (BEAKER) (test code = TESTED AT [facility] 6720 1538) SHENA [facility], [address]: Academic Affairs Assistant/Techni estefani ID = [id number] for HADLEY MELISSA WOUND CULTURE + GRAM [id number] 09:32:00 Test Item Value Reference Range Interpretation [...] No organisms seen (BEAKER) (test code = 987760) POCT-GLUCOSE [id number] 07:11:00 Test Item Value Reference Range Interpretation Comments POC-GLUCOSE METER 121 mg/dL 70-110 H : Notified RN/MD: (BEAKER) (test code = TESTED AT [facility] 8109 5787) SHE[place] [facility], 6[address]: Academic Affairs Assistant/Techni estefani ID = [id number] for HADLEY MELISSA BASIC METABOLIC [id number] 05:27:00 Test Item Value Reference Range Interpretation [...] S NOT APPLICABLE FOR DIALYSIS PATIEN TS. Academic Affairs Assistant ID - EDASICBC W/PLT COUNT & AUTO [id number] 04:50:00 Test Item Value Reference Range Interpretation [...] PERCENT (BEAKER) (test code = 2801) POCT-GLUCOSE [id number] 21:56:00 Test Item Value Reference Range Interpretation Comments POC-GLUCOSE METER 196 mg/dL 70-110 H : TESTED A T [facility] 6720 (BEAKER) (test code = [place], 1538) 83786: Academic Affairs Assistant/Techni estefani ID = [id number] for JOSHUA GONZALEZ BLOOD [id number] 17:00:00 Test Item Value Reference Range Interpretation Comments CULTURE (BEAKER) (test No growth in 5 days code = 1095) BLOOD [id number] 17:00:00 Test Item Value Reference Range Interpretation Comments CULTURE (BEAKER) (test No growth in 5 days code = 1095) POCT-GLUCOSE [id number] 15:32:00 Test Item Value Reference Range Interpretation Comments POC-GLUCOSE METER 132 mg/dL 70-110 H : TESTED A T [facility] 6720 (BEAKER) (test code = [facility], 1538) 46727: Academic Affairs Assistant/Techni estefani ID = [id number] for Juliano Aleman SPIN/CONCENTRATION [id number] 14:39:00 Test Item Value Reference Range Interpretation Comments CONCENTRATION CHARGED (BEAKER) (test Done code = 2657) SPIN/CONCENTRATION [id number] 14:39:00 Test Item Value Reference Range Interpretation Comments CONCENTRATION CHARGED (BEAKER) (test Done code = 2657) POCT-GLUCOSE [id number] 13:00:00 Test Item Value Reference Range Interpretation Comments POC-GLUCOSE METER 187 mg/dL 70-110 H : TESTED A T [facility] 6720 (BEAKER) (test code = [facility], 1538) 84264: Academic Affairs Assistant/Techni estefani ID = [id number] for Juliano Aleman [id number] 11:53:00 Test Item Value Reference Range Interpretation Comments PHOSPHORUS (BEAKER) (test code = 2.9 mg/dL 2.3-4.7 604) Academic Affairs Assistant ID - ADMINPOCT-GLUCOSE [id number] 09:45:00 Test Item Value Reference Range Interpretation Comments POC-GLUCOSE METER 117 mg/dL 70-110 H : TESTED A T [facility] 6720 (BEAKER) (test code = [facility], 1538) 70170: Academic Affairs Assistant/Techni estefani ID = [id number] for LISA DALLAS BASIC METABOLIC [id number] 05:46:00 Test Item Value Reference Range Interpretation [...] S NOT APPLICABLE FOR DIALYSIS PATIEN TS. Academic Affairs Assistant ID - ADMINCBC W/PLT COUNT & AUTO [id number] 05:13:00 Test Item Value Reference Range Interpretation [...] PERCENT (BEAKER) (test code = 2801) POCT-GLUCOSE [id number] 22:36:00 Test Item Value Reference Range Interpretation Comments POC-GLUCOSE METER 214 mg/dL 70-110 H : TESTED A T [facility] 6720 (BEAKER) (test code = [facility], [facility]) 01292: Academic Affairs Assistant/Techni estefani ID = [id number] for MIMS ALYCIA ELELL POCT-GLUCOSE [id number] 19:08:00 Test Item Value Reference Range Interpretation Comments POC-GLUCOSE METER 106 mg/dL 70-110 : TESTED A T [facility] 6720 (BEAKER) (test code = [facility], [facility]) 89041: Academic Affairs Assistant/Techni estefani ID = [id number] for ROSE GONZALES POCT-GLUCOSE [id number] 12:38:00 Test Item Value Reference Range Interpretation Comments POC-GLUCOSE METER 114 mg/dL 70-110 H : TESTED A T [facility] 6720 (BEAKER) (test code = [facility], 153) 85589: Academic Affairs Assistant/Techni estefani ID = [id number] for KHADRA SKELTON POCT-GLUCOSE [id number] 10:42:00 Test Item Value Reference Range Interpretation Comments POC-GLUCOSE METER 121 mg/dL 70-110 H : TESTED A T [facility] 6720 (BEAKER) (test code = [facility], 1538) 88016: Academic Affairs Assistant/Techni estefani ID = [id number] for KHADRA SKELTON BASIC METABOLIC [id number] 06:21:00 Test Item Value Reference Range Interpretation [...] S NOT APPLICABLE FOR DIALYSIS PATIEN TS. Academic Affairs Assistant ID - JAQUELINE [id number] 06:18:00 Test Item Value Reference Range Interpretation Comments PHOSPHORUS (BEAKER) (test code = 2.6 mg/dL 2.3-4.7 604) Academic Affairs Assistant ID - JAQUELINE MCBC W/PLT COUNT & AUTO [id number] 05:50:00 Test Item Value Reference Range Interpretation [...] PERCENT (BEAKER) (test code = 2801) POCT-GLUCOSE [id number] 21:36:00 Test Item Value Reference Range Interpretation Comments POC-GLUCOSE METER 158 mg/dL 70-110 H : TESTED A T [facility] 6720 (BEAKER) (test code [facility], = 1538) 13306: Academic Affairs Assistant/Techni estefani ID = [id number] for ROMULO MCLEAN POCT-GLUCOSE [id number] 17:12:00 Test Item Value Reference Range Interpretation Comments POC-GLUCOSE METER 212 mg/dL 70-110 H : TESTED A T [facility] 6720 (BEAKER) (test code = DASIA Flannery [facility], 1538) 35603: Academic Affairs Assistant/Techni estefani ID = [id number] for OL MOS, SUREKHA POCT-GLUCOSE [id number] 11:24:00 Test Item Value Reference Range Interpretation Comments POC-GLUCOSE METER 159 mg/dL 70-110 H : TESTED A T [facility] 6720 (BEAKER) (test code = [facility] Jose [facility], 1538) 83870: Academic Affairs Assistant/Techni estefani ID = [id number] for OL MOS, SUREKHA POCT-GLUCOSE [id number] 10:21:00 Test Item Value Reference Range Interpretation Comments POC-GLUCOSE METER 111 mg/dL 70-110 H : TESTED A T [facility] 6720 (BEAKER) (test code = [facility], 1538) 00232: Academic Affairs Assistant/Techni estefani ID = [id number] for RI MARIE EDENTON BASIC METABOLIC [id number] 05:04:00 Test Item Value Reference Range Interpretation [...] S NOT APPLICABLE FOR DIALYSIS PATIEN TS. Academic Affairs Assistant ID - JAQUELINE [id number] 04:57:00 Test Item Value Reference Range Interpretation Comments MAGNESIUM (BEAKER) (test code = 2.0 mg/dL 1.6-2.6 627) Academic Affairs Assistant ID - JAQUELINE [id number] 04:57:00 Test Item Value Reference Range Interpretation Comments PHOSPHORUS (BEAKER) (test code = 2.5 mg/dL 2.3-4.7 604) Academic Affairs Assistant ID - JAQUELINE MCBC W/PLT COUNT & AUTO [id number] 04:37:00 Test Item Value Reference Range Interpretation [...] (test code = 416) BASOPHILS ABSOLUTE COUNT (AKER) 0.09 K/ L 0.01-0.08 H (test code = 417) IMMATURE GRANULOCYTES-RELATIVE 1 % 0-1 PERCENT (BEAKER) (test code = 2801) POCT-GLUCOSE [id number] 22:46:00 Test Item Value Reference Range Interpretation Comments POC-GLUCOSE METER 163 mg/dL 70-110 H : TESTED A T [facility] 6720 (BEAKER) (test code = [facility], 1538) 73129: Academic Affairs Assistant/Techni estefani ID = [id number] for RE TUYET SALINAS POCT-GLUCOSE [id number] 16:09:00 Test Item Value Reference Range Interpretation Comments POC-GLUCOSE METER 141 mg/dL 70-110 H : TESTED A T [facility] 6720 (BEAKER) (test code = [facility], 1538) 35552: Academic Affairs Assistant/Techni estefani ID = [id number] for Wi llis, Tabby POCT-GLUCOSE [id number] 11:19:00 Test Item Value Reference Range Interpretation Comments POC-GLUCOSE METER 119 mg/dL 70-110 H : TESTED A T [facility] 6720 (BEAKER) (test code = [facility], 1538) 84697: Academic Affairs Assistant/Techni estefani ID = [id number] for Wi llis, Tabby POCT-GLUCOSE [id number] 08:29:00 Test Item Value Reference Range Interpretation Comments POC-GLUCOSE METER 102 mg/dL 70-110 : TESTED A T [facility] 6720 (BEAKER) (test code = [facility], 1538) 41670: Academic Affairs Assistant/Techni estefani ID = [id number] for ARCELIA SUAZO [id number] 06:50:00 Test Item Value Reference Range Interpretation Comments FERRITIN (BEAKER) (test code = 623.64 ng/mL 5.00-275.00 H 361) Academic Affairs Assistant ID - ADMINIRON, TIBC, % SAT. (WITHOUT FERRITIN)2020-01-08 06:28:00 Test Item Value Reference Range Interpretation Comments IRON (BEAKER) (test code = 547) 17.0 ug/dL 40.0-160.0 L TOTAL IRON BINDING CAPACITY 128 ug/dL 250-450 L (BEAKER) (test code = 769) IRON % SATURATION (2) (BEAKER) 13 % 20-55 L (test code = 2590) Academic Affairs Assistant ID - ADMINVANCOMYCIN LEVEL, [id number] 06:26:00 Test Item Value Reference Range Interpretation Comments VANCOMYCIN RANDOM (BEAKER) (test 20.4 ug/mL code = 523) Reference Range: No NormalsOperator ID - ADMINBASIC METABOLIC [id number] 02:21:00 Test Item Value Reference Range Interpretation [...] S NOT APPLICABLE FOR DIALYSIS PATIEN TS. Academic Affairs Assistant ID - [id number] 02:09:00 Test Item Value Reference Range Interpretation Comments MAGNESIUM (BEAKER) (test code = 1.8 mg/dL 1.6-2.6 627) Academic Affairs Assistant ID - [id number] 02:09:00 Test Item Value Reference Range Interpretation Comments PHOSPHORUS (BEAKER) (test code = 2.4 mg/dL 2.3-4.7 604) Academic Affairs Assistant ID - [id number] 02:06:00 Test Item Value Reference Range Interpretation Comments PARTIAL THROMBOPLASTIN TIME 46.2 seconds 22.5-36.0 H (BEAKER) (test code = 760) PROTHROMBIN TIME/[id number] 02:05:00 Test Item Value Reference Range Interpretation [...] mechanical heart valves.CBC W/PLT COUNT & AUTO [id number] 02:03:00 Test Item Value Reference Range Interpretation [...] PERCENT (BEAKER) (test code = 2801) POCT-GLUCOSE [id number] 00:26:00 Test Item Value Reference Range Interpretation Comments POC-GLUCOSE METER 118 mg/dL 70-110 H : TESTED A T [facility] 6720 (BEAKER) (test code = [facility], 153) 47869: Academic Affairs Assistant/Techni estefani ID = [id number] for Ez Laura farmer POCT-GLUCOSE [id number] 16:33:00 Test Item Value Reference Range Interpretation Comments POC-GLUCOSE METER 154 mg/dL 70-110 H : TESTED A T [facility] 6720 (BEAKER) (test code = [facility], 153) 11698: Academic Affairs Assistant/Techni estefani ID = [id number] for CO X, RADHA POCT-GLUCOSE [id number] 13:11:00 Test Item Value Reference Range Interpretation Comments POC-GLUCOSE METER 169 mg/dL 70-110 H : TESTED A T [facility] 6720 (BEAKER) (test code = [facility], 153) 79250: Academic Affairs Assistant/Techni estefani ID = [id number] for Me Celi noble CBC W/PLT COUNT & AUTO [id number] 10:36:00 Test Item Value Reference Range Interpretation [...] PERCENT (BEAKER) (test code = 2801) POCT-GLUCOSE [id number] 07:59:00 Test Item Value Reference Range Interpretation Comments POC-GLUCOSE METER 107 mg/dL 70-110 : TESTED A T [facility] 6720 (BEAKER) (test code = [place], 1538) 547[address]: Academic Affairs Assistant/Techni estefani ID = [id number] for RADHA SHELTON BASIC METABOLIC [id number] 07:01:00 Test Item Value Reference Range Interpretation [...] S NOT APPLICABLE FOR DIALYSIS PATIEN TS. Academic Affairs Assistant ID - ANTONY [id number] 07:00:00 Test Item Value Reference Range Interpretation Comments MAGNESIUM (BEAKER) (test code = 1.9 mg/dL 1.6-2.6 627) Academic Affairs Assistant ID - ANTONY [id number] 07:00:00 Test Item Value Reference Range Interpretation Comments PHOSPHORUS (BEAKER) (test code = 4.4 mg/dL 2.3-4.7 604) Academic Affairs Assistant ID - ANTONY FVANCOMYCIN LEVEL, [id number] 06:30:00 Test Item Value Reference Range Interpretation Comments VANCOMYCIN RANDOM (BEAKER) (test 16.1 ug/mL code = 523) Reference Range: No NormalsOperator ID - EDASICBC W/PLT COUNT & AUTO [id number] 05:53:00 Test Item Value Reference Range Interpretation [...] PERCENT (BEAKER) (test code = 2801) POCT-GLUCOSE [id number] 23:03:00 Test Item Value Reference Range Interpretation Comments POC-GLUCOSE METER 144 mg/dL 70-110 H : TESTED A T [facility] 6720 (NOE) (test code = [place], 1538) 9[address]: Academic Affairs Assistant/Techni estefani ID = [id number] for Pamela Ortiz SARS-COV2/RT-PCR ([facility])2020-01-06 21:26:00 Test Item Value Reference Range Interpretation Comments SARS-COV2/RT-PCR (test code Negative Not Detected, Negative, = 5449143) See external report for linked test SARS-COV-[address] [facility] (test code = 5047018) Negative results do not preclude SARS-CoV-2 infection [...] of the Act.Fact Sheet for Healthcare Pro viders:https://www.[employer] Tricycle/Documents/Xpert%20Xpress%20SARS%20CoV-2/Fact%20Sh eets/302-5050%89NRAS-RKO-6%20HEALTHCARE%20PROVIDERS%20FACT%20SHEET.pdfFact Sheet for Healthcare Patients:https://www.cephe id.com/Documents/Xpert%20Xpress%20SARS%20CoV-2/Fact%20Sheets/302-3801%20SARS-COV -2%20PATIENT%20FACT%20SHEET.pdfPerforming Laboratory:[facility], [place] [address]XCEXQG ACID, [id number] 20:26:00 Test Item Value Reference Range Interpretation Comments LACTATE BLOOD VENOUS (2) (BEAKER) 0.61 mmol/L 0.50-2.20 (test code = 2872) Academic Affairs Assistant ID - DBRAPID INFLUENZA A&B [id number] 20:15:00 Test Item Value Reference Range Interpretation Comments RAPID INFLUENZA A AG (BEAKER) Negative Negative, Inconclusive (test code = 1622) RAPID INFLUENZA B AG (BEAKER) Negative Negative, Inconclusive (test code = 1623) RAD, CHEST, 1 VIEW, NON [id number] 17:48:00Reason for exam:->FEVERReason for exam:->EMESISReason for exam:->WOUND CHECKShould this be performed at the bedside?->Yes [facility] 1960 Sex: MFINAL REPORTPATIENT ID: [id number] TECHNIQUE: Frontal view of the chest. INDICATION: [...] residual second through fourth metatarsals. Signed: Francisco Martinez MDReport Verified Date/Time: 01/06/2020 17:48:53 Reading Location: [facility] C013Y CT Body Reading Room RAD, FOOT, MIN 3 VIEWS, RIGHT 2020-01-06 17:48:00Reason for exam:->FEVERReason for exam:->EMESISReason for exam:->WOUND CHECK [facility] : 1960 Sex: MFINAL REPORTPATIENT ID: [id number] TECHNIQUE: Frontal view of the chest. INDICATION: [...] residual second through fourth metatarsals. Signed: Francisco Martinez Verified Date/Time: 01/06/2020 17:48:53 Reading Location: [facility] B1 C013Y CT Body Reading Room (CELLAVISION [...] CONCENTRATION Adequate (CELLAVISION)(BEAKER) (test code = 3438) Academic Affairs Assistant ID - ruth ann Amin comments: Slide comments:[id number] 17:24:00 Test Item Value Reference Range Interpretation Comments PARTIAL THROMBOPLASTIN TIME 37.5 seconds 22.5-36.0 H (BEAKER) (test code = 760) POCT-GLUCOSE [id number] 17:23:00 Test Item Value Reference Range Interpretation Comments POC-GLUCOSE METER 145 mg/dL 70-110 H : Notified RN/MD: (BEAKER) (test code = TESTED AT [facility] 6709 3009) [facility], [address]: Academic Affairs Assistant/Techni estefani ID = [id number] for ANTONIO CORTES ROMAIN PROTHROMBIN TIME/[id number] 17:23:00 Test Item Value Reference Range Interpretation [...] for patients wiht mechanical heart valves.HEPATIC FUNCTION [id number] 17:01:00 Test Item Value Reference Range Interpretation [...] (test code = 8 U/L 6-55 347) Academic Affairs Assistant ID - EDASIBASIC METABOLIC [id number] 17:01:00 Test Item Value Reference Range Interpretation [...] S NOT APPLICABLE FOR DIALYSIS PATIEN TS. Academic Affairs Assistant ID - EDASILACTIC ACID, [id number] 17:01:00 Test Item Value Reference Range Interpretation Comments LACTATE BLOOD VENOUS (2) (BEAKER) 1.36 mmol/L 0.50-2.20 (test code = 2872) Academic Affairs Assistant ID - EDASICBC W/PLT COUNT & AUTO [id number] 16:55:00 Test Item Value Reference Range Interpretation [...] (BEAKER) (test code = 2801) BLOOD GAS, [id number] 16:47:00 Test Item Value Reference Range Interpretation [...] code = 1819) 21.0 FUNGUS CULTURE + [id number] 17:16:00 Test Item Value Reference Range Interpretation [...] bacilli (test code = 994) seen POCT-GLUCOSE [id number] 11:45:00 Test Item Value Reference Range Interpretation Comments POC-GLUCOSE METER 126 mg/dL 70-110 H : TESTED A T [facility] 6720 (BEAKER) ([facility], = 1538) 67026: Academic Affairs Assistant/Techni estefani ID = [id number] for JOSELIN ESCALONA POCT-GLUCOSE [id number] 07:39:00 Test Item Value Reference Range Interpretation Comments POC-GLUCOSE METER 94 mg/dL 70-110 : TESTED A T [facility] 6720 (BEAKER) (test code = [place], 1538) 75693: Academic Affairs Assistant/Techni estefani ID = [id number] for JOSELIN ESCALONA CBC W/PLT COUNT & AUTO [id number] 05:28:00 Test Item Value Reference Range Interpretation [...] (BEAKER) (test code = 2801) BASIC METABOLIC [id number] 05:25:00 Test Item Value Reference Range Interpretation [...] S NOT APPLICABLE FOR DIALYSIS PATIEN TS. Academic Affairs Assistant ID - [id number] 05:03:00 Test Item Value Reference Range Interpretation Comments MAGNESIUM (BEAKER) (test code = 2.0 mg/dL 1.6-2.6 627) Academic Affairs Assistant ID - DBPOCT-GLUCOSE [id number] 21:31:00 Test Item Value Reference Range Interpretation Comments POC-GLUCOSE METER 138 mg/dL 70-110 H : TESTED A T [facility] 6720 (BEAKER) (test code = [place], 1538) 71076: Academic Affairs Assistant/Techni estefani ID = [id number] for MURRELL, PHIL TTE POCT-GLUCOSE [id number] 16:39:00 Test Item Value Reference Range Interpretation Comments POC-GLUCOSE METER 119 mg/dL 70-110 H : TESTED A T [facility] 6720 (BEAKER) (test code = [facility], 1538) 94253: Academic Affairs Assistant/Techni estefani ID = [id number] for NEETA ROLLINS POCT-GLUCOSE [id number] 11:42:00 Test Item Value Reference Range Interpretation Comments POC-GLUCOSE METER 133 mg/dL 70-110 H : TESTED A T [facility] 6720 (BEAKER) (test code = [facility], 1538) 69258: Academic Affairs Assistant/Techni estefani ID = [id number] for NEETA ROLLINS POCT-GLUCOSE [id number] 07:52:00 Test Item Value Reference Range Interpretation Comments POC-GLUCOSE METER 80 mg/dL 70-110 : TESTED A T [facility] 6720 (BEAKER) (test code = [facility], 1538) 43046: Academic Affairs Assistant/Techni estefani ID = [id number] for NEETA ASHLEY HEPATITIS B SURFACE [id number] 07:04:00 Test Item Value Reference Range Interpretation Comments HEPATITIS B SURFACE ANTIGEN (2) Nonreactive Nonreactive (BEAKER) (test code = 2585) Specimen is considered negative for HBsAg.BASIC METABOLIC [id number] 06:35:00 Test Item Value Reference Range Interpretation [...] S NOT APPLICABLE FOR DIALYSIS PATIEN TS. Academic Affairs Assistant ID - [id number] 06:26:00 Test Item Value Reference Range Interpretation Comments MAGNESIUM (BEAKER) (test code = 2.1 mg/dL 1.6-2.6 627) Academic Affairs Assistant ID - DBCBC W/PLT COUNT & AUTO [id number] 06:10:00 Test Item Value Reference Range Interpretation [...] PERCENT (BEAKER) (test code = 2801) POCT-GLUCOSE [id number] 20:59:00 Test Item Value Reference Range Interpretation Comments POC-GLUCOSE METER 164 mg/dL 70-110 H : TESTED A T [facility] 6720 (BEAKER) (test code = [facility], 153) 89383: Academic Affairs Assistant/Techni estefani ID = [id number] for PHIL MURRELL POCT-GLUCOSE [id number] 17:56:00 Test Item Value Reference Range Interpretation Comments POC-GLUCOSE METER 121 mg/dL 70-110 H : TESTED A T [facility] 6720 (BEAKER) (test code = [facility], 153) 69463: Academic Affairs Assistant/Techni estefani ID = [id number] for NEETA ROLLINS POCT-GLUCOSE [id number] 14:21:00 Test Item Value Reference Range Interpretation Comments POC-GLUCOSE METER 152 mg/dL 70-110 H : TESTED A T [facility] 6720 (BEAKER) (test code = [facility], 153) 98799: Academic Affairs Assistant/Techni estefani ID = [id number] for KALLI BOOGIE POCT-GLUCOSE [id number] 12:50:00 Test Item Value Reference Range Interpretation Comments POC-GLUCOSE METER 134 mg/dL 70-110 H : TESTED A T [facility] 6720 (BEAKER) (test code = [facility], 1538) 60867: Academic Affairs Assistant/Techni estefani ID = [id number] for NEETA ROLLINS POCT-GLUCOSE [id number] 08:03:00 Test Item Value Reference Range Interpretation Comments POC-GLUCOSE METER 104 mg/dL 70-110 : TESTED A T [facility] 6720 (BEAKER) (test code = [facility], 1538) 29233: Academic Affairs Assistant/Techni estefani ID = [id number] for NEETA ROLLINS BASIC METABOLIC [id number] 07:07:00 Test Item Value Reference Range Interpretation [...] S NOT APPLICABLE FOR DIALYSIS PATIEN TS. Academic Affairs Assistant ID - [id number] 07:00:00 Test Item Value Reference Range Interpretation Comments MAGNESIUM (BEAKER) (test code = 1.9 mg/dL 1.6-2.6 627) Academic Affairs Assistant ID - EDASICBC W/PLT COUNT & AUTO [id number] 06:15:00 Test Item Value Reference Range Interpretation [...] PERCENT (BEAKER) (test code = 2801) POCT-GLUCOSE [id number] 22:35:00 Test Item Value Reference Range Interpretation Comments POC-GLUCOSE METER 152 mg/dL 70-110 H : TESTED A T [facility] 6720 (BEAKER) (test code = [place], 1538) 55524: Academic Affairs Assistant/Techni estefani ID = [id number] for SUMAN FAM POCT-GLUCOSE [id number] 15:46:00 Test Item Value Reference Range Interpretation Comments POC-GLUCOSE METER 93 mg/dL 70-110 : TESTED A T [facility] 6720 (BEAKER) (test code = [place], 1538) 67995: Academic Affairs Assistant/Techni estefani ID = [id number] for Avery Mendoza POCT-GLUCOSE [id number] 08:50:00 Test Item Value Reference Range Interpretation Comments POC-GLUCOSE METER 143 mg/dL 70-110 H : TESTED A T [facility] 6720 (BEAKER) (test code = [facility], 1538) 00883: Academic Affairs Assistant/Techni estefani ID = [id number] for IAIN EASTON BASIC METABOLIC [id number] 06:41:00 Test Item Value Reference Range Interpretation [...] S NOT APPLICABLE FOR DIALYSIS PATIEN TS. Academic Affairs Assistant ID - [id number] 06:40:00 Test Item Value Reference Range Interpretation Comments MAGNESIUM (BEAKER) (test code = 2.0 mg/dL 1.6-2.6 627) Academic Affairs Assistant ID - EDASICBC W/PLT COUNT & AUTO [id number] 05:58:00 Test Item Value Reference Range Interpretation [...] PERCENT (BEAKER) (test code = 2801) SARS-COV2/RT-PCR ([facility])2019-12-21 00:21:00 Test Item Value Reference Range Interpretation Comments SARS-COV2/RT-PCR (test Negative Not Detected, Negative, code = 5968605) See external report for linked test SARS-COV-[address] [facility] KE[place] (test code = 1174136) Negative result for this test determines that [...] of the Act.Fact Sheet for Healthcare Prov iders:https://www.Trunkbow.com/sites/default/files/product/documents/Fact_Sheet_HC _Adglzajvf_Uwft_OTLK-AlV-2.pdfFact Sheet for Healthcare Patients:https://www.Trunkbow.com/sites/default/files/product/docume nts/Huyu_Bjicd_Zdcmodvo_Huad_QZST-MwU-4.pdfPerforming Laboratory:[place] [address] [address] [place], [place] [address]EWUG-[id number] METER 2019-12-20 20:53:00 Test Item Value Reference Range Interpretation Comments POC-GLUCOSE METER 180 mg/dL 70-110 H : Notified RN/MD: ([facility]) (test code = TESTED AT [place] [id number] 1538) [facility], [address]: Academic Affairs Assistant/Techni estefani ID = [id number] for ELMIRA LOPEZ POCT-GLUCOSE [id number] 16:41:00 Test Item Value Reference Range Interpretation Comments POC-GLUCOSE METER 167 mg/dL 70-110 H : [facility] (test code [facility], = 1538) 64893: Academic Affairs Assistant/Techni estefani ID = [id number] for WILS ON, SHASTANIE POCT-GLUCOSE [id number] 12:02:00 Test Item Value Reference Range Interpretation Comments POC-GLUCOSE METER 158 mg/dL 70-110 H : [facility] (BEAKER[facility] (test code [facility], = 1538) 14172: Academic Affairs Assistant/Techni estefani ID = [id number] for WILS ON, SHASTANIE POCT-GLUCOSE [id number] 07:49:00 Test Item Value Reference Range Interpretation Comments POC-GLUCOSE METER 116 mg/dL 70-110 H : [facility] (BEAKER[facility] (test code [facility], = 1538) 46857: Academic Affairs Assistant/Techni estefani ID = [id number] for WILS ON, SHASTANIE BASIC METABOLIC [id number] 06:52:00 Test Item Value Reference Range Interpretation [...] S NOT APPLICABLE FOR DIALYSIS PATIEN TS. Academic Affairs Assistant ID - JAQUELINE [id number] 06:40:00 Test Item Value Reference Range Interpretation Comments MAGNESIUM (BEAKER) (test code = 1.9 mg/dL 1.6-2.6 627) Academic Affairs Assistant ID - JAQUELINE MCBC W/PLT COUNT & AUTO [id number] 05:53:00 Test Item Value Reference Range Interpretation [...] PERCENT (BEAKER) (test code = 2801) POCT-GLUCOSE [id number] 20:47:00 Test Item Value Reference Range Interpretation Comments POC-GLUCOSE METER 221 mg/dL 70-110 H : Notified RN/MD: ([facility]) (test code = TESTED AT [place] [id number] 1538) [facility], [address]: Academic Affairs Assistant/Techni estefani ID = [id number] for ENOCH LANG ELMIRA ANAEROBIC [id number] 20:08:00 Test Item Value Reference Range Interpretation Comments CULTURE (AKER) (test No anaerobes isolated code = 1095) POCT-GLUCOSE [id number] 16:36:00 Test Item Value Reference Range Interpretation Comments POC-GLUCOSE METER 190 mg/dL 70-110 H : [facility] ([facility]AKER[facility] (test code [facility], = 1538) 90897: Academic Affairs Assistant/Techni estefain ID = [id number] for WILS ON, SHASTANIE POCT-GLUCOSE [id number] 09:20:00 Test Item Value Reference Range Interpretation Comments POC-GLUCOSE METER 106 mg/dL 70-110 : TESTED A T [facility] 6720 (BEAKER) (test code [facility], = 1538) 53660: Academic Affairs Assistant/Techni estefani ID = [id number] for WILS ON, SHASTANIE BASIC METABOLIC [id number] 05:49:00 Test Item Value Reference Range Interpretation [...] S NOT APPLICABLE FOR DIALYSIS PATIEN TS. Academic Affairs Assistant ID - JAQUELINE [id number] 05:48:00 Test Item Value Reference Range Interpretation Comments MAGNESIUM (BEAKER) (test code = 2.1 mg/dL 1.6-2.6 627) Academic Affairs Assistant ID - JAQUELINE MCBC W/PLT COUNT & AUTO [id number] 05:44:00 Test Item Value Reference Range Interpretation [...] PERCENT (BEAKER) (test code = 2801) POCT-GLUCOSE [id number] 20:14:00 Test Item Value Reference Range Interpretation Comments POC-GLUCOSE METER 181 mg/dL 70-110 H : TESTED A T [facility] 6720 (BEAKER) (test code = [facility], 153) 95827: Academic Affairs Assistant/Techni estefani ID = [id number] for CR BERT, TIA POCT-GLUCOSE [id number] 18:20:00 Test Item Value Reference Range Interpretation Comments POC-GLUCOSE METER 148 mg/dL 70-110 H : TESTED A T [facility] 6720 (BEAKER) (test code = [facility], 153) 41385: Academic Affairs Assistant/Techni estefani ID = [id number] for GR AHAM, KAREN BASIC METABOLIC [id number] 06:50:00 Test Item Value Reference Range Interpretation [...] S NOT APPLICABLE FOR DIALYSIS PATIEN TS. Academic Affairs Assistant ID - [id number] 06:49:00 Test Item Value Reference Range Interpretation Comments MAGNESIUM (BEAKER) (test code = 2.0 mg/dL 1.6-2.6 627) Academic Affairs Assistant ID - EDASICBC W/PLT COUNT & AUTO [id number] 05:57:00 Test Item Value Reference Range Interpretation [...] PERCENT (BEAKER) (test code = 2801) POCT-GLUCOSE [id number] 20:12:00 Test Item Value Reference Range Interpretation Comments POC-GLUCOSE METER 217 mg/dL 70-110 H : TESTED A T [facility] 6720 (BEAKER) (test code = [facility], 153) 63760: Academic Affairs Assistant/Techni estefani ID = [id number] for CR BERT, TIA POCT-GLUCOSE [id number] 14:00:00 Test Item Value Reference Range Interpretation Comments POC-GLUCOSE METER 97 mg/dL 70-110 : TESTED A T [facility] 6720 (BEAKER) (test code = [facility], 153) 86166: Academic Affairs Assistant/Techni estefani ID = [id number] for JOSELIN ESCALONA BASIC METABOLIC [id number] 05:12:00 Test Item Value Reference Range Interpretation [...] S NOT APPLICABLE FOR DIALYSIS PATIEN TS. Academic Affairs Assistant ID - JAQUELINE [id number] 05:09:00 Test Item Value Reference Range Interpretation Comments MAGNESIUM (BEAKER) (test code = 2.1 mg/dL 1.6-2.6 627) Academic Affairs Assistant ID - JAQUELINE MCBC W/PLT COUNT & AUTO [id number] 04:38:00 Test Item Value Reference Range Interpretation [...] PERCENT (BEAKER) (test code = 2801) POCT-GLUCOSE [id number] 21:09:00 Test Item Value Reference Range Interpretation Comments POC-GLUCOSE METER 156 mg/dL 70-110 H : TESTED A T [facility] 6720 (BEAKER) ([facility] = [facility], 1538) 77361: Academic Affairs Assistant/Techni estefani ID = [id number] for ROSIO DUFF POCT-GLUCOSE [id number] 16:53:00 Test Item Value Reference Range Interpretation Comments POC-GLUCOSE METER 135 mg/dL 70-110 H : TESTED A T [facility] 6720 (BEAKER) (test code [facility], = 1538) 52970: Academic Affairs Assistant/Techni estefani ID = [id number] for JOSELIN ESCALONA POCT-GLUCOSE [id number] 11:36:00 Test Item Value Reference Range Interpretation Comments POC-GLUCOSE METER 115 mg/dL 70-110 H : [facility] ([facility]AKER[facility] (test code [facility], = 1538) 73455: Academic Affairs Assistant/Techni estefani ID = [id number] for JOSELIN ESCALONA OBTAINED CULTURE + GRAM [id number] 08:39:00 Test Item Value Reference Range Interpretation [...] gram negative (BEAKER) (test code = rods 520723) POCT-GLUCOSE [id number] 07:57:00 Test Item Value Reference Range Interpretation Comments POC-GLUCOSE METER 75 mg/dL 70-110 : TESTED A T [facility] 6720 (BEAKER) (test code = [place], 1538) 31389: Academic Affairs Assistant/Techni estefani ID = [id number] for JOSELIN ESCALONA CBC W/PLT COUNT & AUTO [id number] 06:19:00 Test Item Value Reference Range Interpretation [...] (BEAKER) (test code = 2801) BASIC METABOLIC [id number] 06:14:00 Test Item Value Reference Range Interpretation [...] S NOT APPLICABLE FOR DIALYSIS PATIEN TS. Academic Affairs Assistant ID - PIAYA [id number] 06:13:00 Test Item Value Reference Range Interpretation Comments MAGNESIUM (BEAKER) (test code = 2.1 mg/dL 1.6-2.6 627) Academic Affairs Assistant ID - PIAYA LPOCT-GLUCOSE [id number] 20:21:00 Test Item Value Reference Range Interpretation Comments POC-GLUCOSE METER 188 mg/dL 70-110 H : TESTED A T [facility] 6720 (BEAKER) (test code = [facility], 1538) 23331: Academic Affairs Assistant/Techni estefani ID = [id number] for Ch andnadege, Nikki POCT-GLUCOSE [id number] 16:41:00 Test Item Value Reference Range Interpretation Comments POC-GLUCOSE METER 110 mg/dL 70-110 : TESTED A T [facility] 6720 (BEAKER) (test code [facility], = 1538) 56985: Academic Affairs Assistant/Techni estefani ID = [id number] for WILS ON, SHASTANIE POCT-GLUCOSE [id number] 12:03:00 Test Item Value Reference Range Interpretation Comments POC-GLUCOSE METER 82 mg/dL 70-110 : TESTED A T [facility] 6720 (BEAKER) (test code = [facility], 1538) 16006: Academic Affairs Assistant/Techni estefani ID = [id number] for WILS ON, SHASTANIE POCT-GLUCOSE [id number] 07:12:00 Test Item Value Reference Range Interpretation Comments POC-GLUCOSE METER 86 mg/dL 70-110 : TESTED A T [facility] 6720 (BEAKER) (test code = [facility], 1538) 15919: Academic Affairs Assistant/Techni estefani ID = [id number] for WILS ON, SHASTANIE BASIC METABOLIC [id number] 05:40:00 Test Item Value Reference Range Interpretation [...] S NOT APPLICABLE FOR DIALYSIS PATIEN TS. [id number] 05:38:00 Test Item Value Reference Range Interpretation Comments MAGNESIUM (BEAKER) (test code = 2.0 mg/dL 1.6-2.6 627) CBC W/PLT COUNT & AUTO [id number] 05:07:00 Test Item Value Reference Range Interpretation [...] PERCENT (BEAKER) (test code = 2801) POCT-GLUCOSE [id number] 20:33:00 Test Item Value Reference Range Interpretation Comments POC-GLUCOSE METER 218 mg/dL 70-110 H : TESTED A T [facility] 6720 (BEAKER) (test code = [facility], 153) 45840: Academic Affairs Assistant/Techni estefani ID = [id number] for PHIL MURRELL POCT-GLUCOSE [id number] 17:47:00 Test Item Value Reference Range Interpretation Comments POC-GLUCOSE METER 122 mg/dL 70-110 H : TESTED A T [facility] 6720 (BEAKER) (test code [facility], = 1538) 23596: Academic Affairs Assistant/Techni estefani ID = [id number] for WILS ON, SHASTANIE POCT-GLUCOSE [id number] 11:53:00 Test Item Value Reference Range Interpretation Comments POC-GLUCOSE METER 93 mg/dL 70-110 : TESTED A T [facility] 6720 (BEAKER) (test code = [facility], 1538) 32294: Academic Affairs Assistant/Techni estefani ID = [id number] for WILS ON, SHASTANIE POCT-GLUCOSE [id number] 08:26:00 Test Item Value Reference Range Interpretation Comments POC-GLUCOSE METER 93 mg/dL 70-110 : TESTED A T [facility] 6720 (BEAKER) (test code = [facility], 1538) 50278: Academic Affairs Assistant/Techni estefani ID = [id number] for JOSELIN ESCALONA BASIC METABOLIC [id number] 04:43:00 Test Item Value Reference Range Interpretation [...] S NOT APPLICABLE FOR DIALYSIS PATIEN TS. Academic Affairs Assistant ID - [id number] 04:33:00 Test Item Value Reference Range Interpretation Comments MAGNESIUM (BEAKER) (test code = 2.1 mg/dL 1.6-2.6 627) Academic Affairs Assistant ID - EDASICBC W/PLT COUNT & AUTO [id number] 04:11:00 Test Item Value Reference Range Interpretation [...] PERCENT (BEAKER) (test code = 2801) POCT-GLUCOSE [id number] 21:01:00 Test Item Value Reference Range Interpretation Comments POC-GLUCOSE METER 159 mg/dL 70-110 H : [facility] ([email or web address]) (test code = [facility], 1538) 62674: Academic Affairs Assistant/Techni estefani ID = [id number] for Mo Rod hopkinsran POCT-GLUCOSE [id number] 17:01:00 Test Item Value Reference Range Interpretation Comments POC-GLUCOSE METER 149 mg/dL 70-110 H : TESTED A T [facility] 6720 ([email or web address]) (test code = [facility], 1538) 48297: Academic Affairs Assistant/Techni estefani ID = [id number] for IAIN EASTON POCT-GLUCOSE [id number] 12:36:00 Test Item Value Reference Range Interpretation Comments POC-GLUCOSE METER 127 mg/dL 70-110 H : TESTED A T [facility] 6720 (BEAKER) (test code = [facility] Jose [facility], 1538) 70334: Academic Affairs Assistant/Techni estefani ID = [id number] for ANGEL HILLS POCT-GLUCOSE [id number] 08:18:00 Test Item Value Reference Range Interpretation Comments POC-GLUCOSE METER 75 mg/dL 70-110 : TESTED A T [facility] 6720 (BEAKER) (test code = [facility], 1538) 02018: Academic Affairs Assistant/Techni estefani ID = [id number] for IAIN DEXTER HEMOGLOBIN [id number] 08:08:00 Test Item Value Reference Range Interpretation Comments HEMOGLOBIN A1C (BEAKER) (test code = 5.9 % 4.3-6.1 368) BASIC METABOLIC [id number] 06:38:00 Test Item Value Reference Range Interpretation [...] S NOT APPLICABLE FOR DIALYSIS PATIEN TS. Academic Affairs Assistant ID - JAQUELINE [id number] 06:32:00 Test Item Value Reference Range Interpretation Comments MAGNESIUM (BEAKER) (test code = 2.0 mg/dL 1.6-2.6 627) Academic Affairs Assistant ID - JAQUELINE MCBC W/PLT COUNT & AUTO [id number] 06:04:00 Test Item Value Reference Range Interpretation [...] PERCENT (BEAKER) (test code = 2801) SARS-COV2/RT-PCR ([facility])2019-12-13 05:48:00 Test Item Value Reference Range Interpretation Comments SARS-COV2/RT-PCR (test Negative Not Detected, Negative, code = 8892963) See external report for linked test SARS-COV-[address] [facility] [place] (test code = 0762142) Negative result for this test determines that [...] of the Act.Fact Sheet for Healthcare Prov iders:https://www.quidel.com/sites/default/files/product/documents/Fact_Sheet_HC _Ulzzmoglr_Ihfi_QNHT-VqQ-1.pdfFact Sheet for Healthcare Patients:https://www.Lenskart.com/sites/default/files/product/docume nts/Jade_Atfvf_Iwuzkbjk_Iifa_ONSD-JzS-5.pdfPerforming Laboratory:[facility] [place], [place] [id number]-[id number] METER 2019-12-12 20:52:00 Test Item Value Reference Range Interpretation Comments POC-GLUCOSE METER 123 mg/dL 70-110 H : TESTED A T [facility] 6720 (BEAKER) (test code = [facility], 153) 58374: Academic Affairs Assistant/Techni estefani ID = [id number] for Alexia Vivas POCT-GLUCOSE [id number] 16:14:00 Test Item Value Reference Range Interpretation Comments POC-GLUCOSE METER 175 mg/dL 70-110 H : TESTED A T [facility] 6720 (BEAKER) (test code = [facility], 1538) 59194: Academic Affairs Assistant/Techni estefani ID = [id number] for IAIN EASTON POCT-GLUCOSE [id number] 13:41:00 Test Item Value Reference Range Interpretation Comments POC-GLUCOSE METER 145 mg/dL 70-110 H : TESTED A T [facility] 6720 (BEAKER) (test code = [facility], 1538) 01333: Academic Affairs Assistant/Techni estefani ID = [id number] for BLADIMIR MELISSA VANCOMYCIN LEVEL, [id number] 05:00:00 Test Item Value Reference Range Interpretation Comments VANCOMYCIN RANDOM (BEAKER) (test 17.3 ug/mL code = 523) Reference Range: No NormalsOperator ID - JAQUELINE MSPIN/CONCENTRATION CHARGE 2019-12-12 04:16:00 Test Item Value Reference Range Interpretation Comments CONCENTRATION CHARGED (BEAKER) (test Done code = 2657) POCT-GLUCOSE [id number] 20:36:00 Test Item Value Reference Range Interpretation Comments POC-GLUCOSE METER 80 mg/dL 70-110 : TESTED A T [facility] 6720 (BEAKER) (test code = [facility], 153) 95733: Academic Affairs Assistant/Techni estefani ID = [id number] for ELIZABETH DUENAS POCT-GLUCOSE [id number] 16:43:00 Test Item Value Reference Range Interpretation Comments POC-GLUCOSE METER 88 mg/dL 70-110 : TESTED A T [facility] 6720 (BEAKER) (test code = [facility], 1538) 70496: Academic Affairs Assistant/Techni estefani ID = [id number] for KRYSTAL KNOX POCT-GLUCOSE [id number] 14:06:00 Test Item Value Reference Range Interpretation Comments POC-GLUCOSE METER 78 mg/dL 70-110 : TESTED A T [facility] 6720 (BEAKER) (test code = [facility], 1538) 94968: Academic Affairs Assistant/Techni estefani ID = [id number] for KRYSTAL KNOX POCT-GLUCOSE [id number] 11:19:00 Test Item Value Reference Range Interpretation Comments POC-GLUCOSE METER 93 mg/dL 70-110 : TESTED A T [facility] 6720 (BEAKER) (test code = [facility], 1538) 82279: Academic Affairs Assistant/Techni estefani ID = [id number] for COLEEN LEWIS ROSE BASIC METABOLIC [id number] 04:38:00 Test Item Value Reference Range Interpretation [...] S NOT APPLICABLE FOR DIALYSIS PATIEN TS. Academic Affairs Assistant ID - EDASICBC W/PLT COUNT & AUTO [id number] 04:14:00 Test Item Value Reference Range Interpretation [...] (test code = 416) BASOPHILS ABSOLUTE COUNT ([facility]) 0.07 K/ L 0.01-0.08 (test code = 417) IMMATURE GRANULOCYTES-RELATIVE 0 % 0-1 PERCENT ([facility]) (test code = 2801) BLOOD [id number] 02:00:00 Test Item Value Reference Range Interpretation Comments CULTURE ([facility]) (test No growth in 5 days code = 1095) POCT-GLUCOSE [id number] 20:48:00 Test Item Value Reference Range Interpretation Comments POC-GLUCOSE METER 192 mg/dL 70-110 H : Notified RN/MD: ([facility]) (test code = TESTED AT [place] [id number]) [facility], [id number]: Academic Affairs Assistant/Techni etsefani ID = [id number] for ENOCH NEVILLEELMIRA MURRIETA POCT-GLUCOSE [id number] 17:27:00 Test Item Value Reference Range Interpretation Comments POC-GLUCOSE METER 96 mg/dL 70-110 : [facility]) (test code = [facility], 153) 11090: Academic Affairs Assistant/Techni estefani ID = [id number] for WILS ON, SHASTANIE POCT-GLUCOSE [id number] 16:31:00 Test Item Value Reference Range Interpretation Comments POC-GLUCOSE METER 91 mg/dL 70-110 : TESTED A T [facility] 6720 ([facility]) (test code = [facility], 153) 56751: Academic Affairs Assistant/Techni estefani ID = [id number] for JUAN Z, EVONNE VIAL POCT-GLUCOSE [id number] 11:42:00 Test Item Value Reference Range Interpretation Comments POC-GLUCOSE METER 91 mg/dL 70-110 : TESTED A T [facility] 6720 ([facility]) (test code = [facility], 153) 85842: Academic Affairs Assistant/Techni estefani ID = [id number] for WILS ON, SHASTANIE POCT-GLUCOSE [id number] 08:18:00 Test Item Value Reference Range Interpretation Comments POC-GLUCOSE METER 95 mg/dL 70-110 : TESTED A T [facility] 6720 ([facility]) (test code = [facility], 153) 55107: Academic Affairs Assistant/Techni estefani ID = [id number] for JOSELIN ESCALONA POCT-GLUCOSE [id number] 21:34:00 Test Item Value Reference Range Interpretation Comments POC-GLUCOSE METER 135 mg/dL 70-110 H : TESTED A T [facility] 6720 (BEAKER) (test code = [facility], [facility]) 88395: Academic Affairs Assistant/Techni estefani ID = [id number] for MURRELL, PHIL TTE POCT-GLUCOSE [id number] 16:56:00 Test Item Value Reference Range Interpretation Comments POC-GLUCOSE METER 140 mg/dL 70-110 H : TESTED A T [facility] 6720 (BEAKER) (test code = [facility], [facility]8) 25141: Academic Affairs Assistant/Techni estefani ID = [id number] for AGUSTÍN GUTIERREZ, IAIN POCT-GLUCOSE [id number] 11:38:00 Test Item Value Reference Range Interpretation Comments POC-GLUCOSE METER 126 mg/dL 70-110 H : TESTED A T [facility] 6720 (BEAKER) (test code = [facility], [facility]) 60526: Academic Affairs Assistant/Techni estefani ID = [id number] for AGUSTÍN GUTIERREZ, IAIN POCT-GLUCOSE [id number] 07:31:00 Test Item Value Reference Range Interpretation Comments POC-GLUCOSE METER 63 mg/dL 70-110 L : TESTED A T [facility] 6720 (BEAKER) (test code = [facility], [facility]) 23224: Academic Affairs Assistant/Techni estefani ID = [id number] for BREA NE, IAIN POCT-GLUCOSE [id number] 21:32:00 Test Item Value Reference Range Interpretation Comments POC-GLUCOSE METER 144 mg/dL 70-110 H : TESTED A T [facility] 6720 (BEAKER) (test code = [facility], [facility]8) 11681: Academic Affairs Assistant/Techni estefani ID = [id number] for MURRELL, PHIL TTE POCT-GLUCOSE [id number] 17:06:00 Test Item Value Reference Range Interpretation Comments POC-GLUCOSE METER 95 mg/dL 70-110 : TESTED A T [facility] 6720 (BEAKER) (test code = [facility], [facility]8) 83439: Academic Affairs Assistant/Techni estefani ID = [id number] for HEAR NE, IAIN POCT-GLUCOSE [id number] 12:40:00 Test Item Value Reference Range Interpretation Comments POC-GLUCOSE METER 153 mg/dL 70-110 H : TESTED A T [facility] 6720 (BEAKER) (test code = DASIA Flannery [facility], 1538) 08477: Academic Affairs Assistant/Techni estefani ID = [id number] for IAIN EASTON POCT-GLUCOSE [id number] 07:26:00 Test Item Value Reference Range Interpretation Comments POC-GLUCOSE METER 103 mg/dL 70-110 : TESTED A T [facility] 6720 (BEAKER) (test code = [facility] Flannery [facility], 1538) 06032: Academic Affairs Assistant/Techni estefani ID = [id number] for IAIN EASTON BASIC METABOLIC [id number] 05:34:00 Test Item Value Reference Range Interpretation [...] S NOT APPLICABLE FOR DIALYSIS PATIEN TS. Academic Affairs Assistant ID - PIAYA LCBC W/PLT COUNT & AUTO [id number] 04:04:00 Test Item Value Reference Range Interpretation [...] PERCENT (BEAKER) (test code = 2801) POCT-GLUCOSE [id number] 21:37:00 Test Item Value Reference Range Interpretation Comments POC-GLUCOSE METER 251 mg/dL 70-110 H : TESTED A T [facility] 6720 (BEAKER) (test code = [facility], 1538) 77617: Academic Affairs Assistant/Techni estefani ID = [id number] for PHIL MURRELL POCT-GLUCOSE [id number] 17:54:00 Test Item Value Reference Range Interpretation Comments POC-GLUCOSE METER 108 mg/dL 70-110 : [facility] A T [facility] 6720 [facility] (test code = [facility], 1538) 05798: Academic Affairs Assistant/Techni estefani ID = [id number] for Avery Levy POCT-GLUCOSE [id number] 11:57:00 Test Item Value Reference Range Interpretation Comments POC-GLUCOSE METER 85 mg/dL 70-110 : TESTED A T [facility] 6720 [facility] (test code = [facility], 153) 48624: Academic Affairs Assistant/Techni estefani ID = [id number] for IAIN DEXTER POCT-GLUCOSE [id number] 08:11:00 Test Item Value Reference Range Interpretation Comments POC-GLUCOSE METER 66 mg/dL 70-110 L : TESTED A T [facility] 6720 ([facility] (test code = [facility], 153) 83070: Academic Affairs Assistant/Techni estefani ID = [id number] for IAIN DEXTER FUNGUS CULTURE + [id number] 15:59:00 Test Item Value Reference Range Interpretation Comments CULTURE (BEAKER) (test No fungus isolated in code = 1095) 28 days FUNGUS SMEAR ([facility]) No fungi seen (test code = 1406) POCT-GLUCOSE [id number] 15:44:00 Test Item Value Reference Range Interpretation Comments POC-GLUCOSE METER 97 mg/dL 70-110 : TESTED A T [facility] 6720 (BEAKER) (test code = [facility], 1538) 94853: Academic Affairs Assistant/Techni estefani ID = [id number] for JUAN MANUEL IAQUEEN LAZCANO POCT-GLUCOSE [id number] 10:44:00 Test Item Value Reference Range Interpretation Comments POC-GLUCOSE METER 71 mg/dL 70-110 : TESTED A T [facility] 6720 (BEAKER) (test code = [facility], 1538) 60276: Academic Affairs Assistant/Techni estefani ID = [id number] for WILL IAMS, SARS-COV2/RT-PCR ([facility])2019-12-06 08:14:00 Test Item Value Reference Range Interpretation Comments SARS-COV2/RT-PCR (test Negative Not Detected, Negative, code = 0460906) See external report for linked test SARS-COV-[address] [facility] KEELY (test code = 8636422) Negative result for this test determines that [...] of the Act.Fact Sheet for Healthcare Prov iders:https://www.Trunkbow.Ukash/sites/default/files/product/documents/Fact_Sheet_HC _Ufoahyfam_Qzre_EDAX-BnL-6.pdfFact Sheet for Healthcare Patients:https://www.Trunkbow.Ukash/sites/default/files/product/docume nts/Pxgn_Rdbkm_Ebmwubma_Ysrp_VYYU-EvK-6.pdfPerforming Laboratory:[facility], [place] [address]TUPH-IEGWPWF METER 2019-12-06 08:03:00 Test Item Value Reference Range Interpretation Comments POC-GLUCOSE METER 68 mg/dL 70-110 L : TESTED A T [facility] 6720 (BEAKER) (test code = DASIA Flannery [place], 1538) 03613: Academic Affairs Assistant/Techni estefani ID = [id number] for QUEEN SWANSON BASIC METABOLIC [id number] 07:45:00 Test Item Value Reference Range Interpretation [...] S NOT APPLICABLE FOR DIALYSIS PATIEN TS. Academic Affairs Assistant ID - [id number] 07:30:00 Test Item Value Reference Range Interpretation Comments PHOSPHORUS (BEAKER) (test code = 4.8 mg/dL 2.3-4.7 H 604) Academic Affairs Assistant ID - [id number] 07:30:00 Test Item Value Reference Range Interpretation Comments MAGNESIUM (BEAKER) (test code = 2.4 mg/dL 1.6-2.6 627) Academic Affairs Assistant ID - EDASICBC W/PLT COUNT & AUTO [id number] 07:19:00 Test Item Value Reference Range Interpretation [...] PERCENT (BEAKER) (test code = 2801) PROTHROMBIN [id number] 06:53:00 Test Item Value Reference Range Interpretation Comments PROTIME (BEAGA) (test code = 16.1 seconds 11.9-14.2 H 759) INR (BEAKER) (test code = 370) 1.32 <=5.90 Effective 08/02/2018: PT Reference Range ChangeNew: 11.9-14.2 Previous: 11.7- 14.7RECOMMENDED COUMADIN/WARFARIN INR THERAPY RANGESSTANDARD DOSE: 2.0-3.0 Includes: PROPHYLAXIS for venous thrombosis, systemic embolization; TREATMENT for venous thrombosis and/or pulmonary embolus.HIGH RISK: Target INR is 2.5-3.5 for patients wiht mechanical heart valves.POCT-GLUCOSE [id number] 21:16:00 Test Item Value Reference Range Interpretation Comments POC-GLUCOSE METER 257 mg/dL 70-110 H : TESTED A T [facility] 6720 ([email or web address]) (test code = [facility], 153) 93484: Academic Affairs Assistant/Techni estefani ID = [id number] for MARY MURRELLE TTE POCT-GLUCOSE [id number] 21:21:00 Test Item Value Reference Range Interpretation Comments POC-GLUCOSE METER 247 mg/dL 70-110 H : TESTED A T [facility] 6720 ([email or web address]) (test code = [facility], 153) 34138: Academic Affairs Assistant/Techni estefani ID = [id number] for DEANNA RANGELICA POCT-GLUCOSE [id number] 12:32:00 Test Item Value Reference Range Interpretation Comments POC-GLUCOSE METER 95 mg/dL 70-110 : TESTED A T [facility] 6720 (BEAKER) (test code = [facility] [employer] [facility], 1538) 58087: Academic Affairs Assistant/Techni estefani ID = [id number] for QUANG OS, JACOB POCT-GLUCOSE [id number] 08:26:00 Test Item Value Reference Range Interpretation Comments POC-GLUCOSE METER 98 mg/dL 70-110 : TESTED A T [facility] 6720 (BEAKER) (test code = [facility], 1538) 93317: Academic Affairs Assistant/Techni estefani ID = [id number] for QUANG OS, JACOB POCT-GLUCOSE [id number] 21:54:00 Test Item Value Reference Range Interpretation Comments POC-GLUCOSE METER 153 mg/dL 70-110 H : TESTED A T [facility] 6720 (BEAKER) (test code = [facility], 153) 13335: Academic Affairs Assistant/Techni estefani ID = [id number] for UL LATTIL, SJ POCT-GLUCOSE [id number] 17:04:00 Test Item Value Reference Range Interpretation Comments POC-GLUCOSE METER 194 mg/dL 70-110 H : TESTED A T [facility] 6720 (BEAKER) (test code = [facility], 153) 79759: Academic Affairs Assistant/Techni estefani ID = [id number] for HIGGINS BLET, JANIE POCT-GLUCOSE [id number] 12:29:00 Test Item Value Reference Range Interpretation Comments POC-GLUCOSE METER 162 mg/dL 70-110 H : TESTED A T [facility] 6720 (BEAKER) (test code = [facility], [facility]) 18657: Academic Affairs Assistant/Techni estefani ID = [id number] for HIGGINS BLET, JANIE POCT-GLUCOSE [id number] 09:42:00 Test Item Value Reference Range Interpretation Comments POC-GLUCOSE METER 178 mg/dL 70-110 H : TESTED A T [facility] 6720 (BEAKER) (test code = [facility], [facility]) 06774: Academic Affairs Assistant/Techni estefani ID = [id number] for NG MOLLY RIVERAUY POCT-GLUCOSE [id number] 07:19:00 Test Item Value Reference Range Interpretation Comments POC-GLUCOSE METER 115 mg/dL 70-110 H : TESTED A T [facility] 6720 (BEAKER) (test code = [facility], 153) 19403: Academic Affairs Assistant/Techni estefani ID = [id number] for UL LATTIL, SJ CREATINE KINASE (CK)2019-11-29 06:25:00 Test Item Value Reference Range Interpretation Comments CREATINE KINASE TOTAL (BEAKER) (test 249 U/L 29-200 H code = 380) Academic Affairs Assistant ID - JAQUELINE MPOCT-GLUCOSE [id number] 21:03:00 Test Item Value Reference Range Interpretation Comments POC-GLUCOSE METER 157 mg/dL 70-110 H : TESTED A T [facility] 6720 (BEAKER) (test code = [facility], 1538) 44499: Academic Affairs Assistant/Techni estefani ID = [id number] for UL LATTIL, SJ POCT-GLUCOSE [id number] 18:26:00 Test Item Value Reference Range Interpretation Comments POC-GLUCOSE METER 136 mg/dL 70-110 H : TESTED A T [facility] 6720 (BEAKER) (test code = [facility], 1538) 57798: Academic Affairs Assistant/Techni estefani ID = [id number] for NG TYRONE RIVERA POCT-GLUCOSE [id number] 11:59:00 Test Item Value Reference Range Interpretation Comments POC-GLUCOSE METER 160 mg/dL 70-110 H : TESTED A T [facility] 6720 (BEAKER) (test code = [facility], [facility]8) 90460: Academic Affairs Assistant/Techni estefani ID = [id number] for GUNNER PANDYA POCT-GLUCOSE [id number] 08:00:00 Test Item Value Reference Range Interpretation Comments POC-GLUCOSE METER 89 mg/dL 70-110 : TESTED A T [facility] 6720 (BEAKER) (test code = [facility], 1538) 08375: Academic Affairs Assistant/Techni estefani ID = [id number] for FAUGNNER MCNALLY BASIC METABOLIC [id number] 04:43:00 Test Item Value Reference Range Interpretation [...] S NOT APPLICABLE FOR DIALYSIS PATIEN TS. Academic Affairs Assistant ID - BSCBC W/PLT COUNT & AUTO [id number] 04:35:00 Test Item Value Reference Range Interpretation [...] PERCENT (BEAKER) (test code = 2801) POCT-GLUCOSE [id number] 21:07:00 Test Item Value Reference Range Interpretation Comments POC-GLUCOSE METER 146 mg/dL 70-110 H : TESTED A T [facility] 6720 (BEAKER) (test code = [facility], 1538) 57793: Academic Affairs Assistant/Techni estefani ID = [id number] for JAD SALGUERO POCT-GLUCOSE [id number] 17:47:00 Test Item Value Reference Range Interpretation Comments POC-GLUCOSE METER 138 mg/dL 70-110 H : TESTED A T [facility] 6720 (BEAKER) (test code = [facility], 1538) 10260: Academic Affairs Assistant/Techni estefani ID = [id number] for SA MOISES, JACOB POCT-GLUCOSE [id number] 12:12:00 Test Item Value Reference Range Interpretation Comments POC-GLUCOSE METER 157 mg/dL 70-110 H : TESTED A T [facility] 6720 (BEAKER) (test code = [facility], 1538) 40773: Academic Affairs Assistant/Techni estefani ID = [id number] for SA JACOB DE LEON POCT-GLUCOSE [id number] 09:04:00 Test Item Value Reference Range Interpretation Comments POC-GLUCOSE METER 142 mg/dL 70-110 H : TESTED A T [facility] 6720 (BEAKER) (test code = [facility], 1538) 24840: Academic Affairs Assistant/Techni estefani ID = [id number] for SA NTTONYA, JACOB BASIC METABOLIC [id number] 05:51:00 Test Item Value Reference Range Interpretation [...] S NOT APPLICABLE FOR DIALYSIS PATIEN TS. Academic Affairs Assistant ID - BSCBC W/PLT COUNT & AUTO [id number] 05:17:00 Test Item Value Reference Range Interpretation [...] PERCENT (BEAKER) (test code = 2801) POCT-GLUCOSE [id number] 21:20:00 Test Item Value Reference Range Interpretation Comments POC-GLUCOSE METER 136 mg/dL 70-110 H : TESTED A T [facility] 6720 (BEAKER) (test code = [facility], 153) 73176: Academic Affairs Assistant/Techni estefani ID = [id number] for SA HIGGINS, CRYSTAL POCT-GLUCOSE [id number] 17:34:00 Test Item Value Reference Range Interpretation Comments POC-GLUCOSE METER 205 mg/dL 70-110 H : TESTED A T [facility] 6720 (BEAKER) (test code = [facility], 1538) 62784: Academic Affairs Assistant/Techni estefani ID = [id number] for SA NTOS, JACOB POCT-GLUCOSE [id number] 11:22:00 Test Item Value Reference Range Interpretation Comments POC-GLUCOSE METER 98 mg/dL 70-110 : TESTED A T [facility] 6720 (BEAKER) (test code = [facility], 1538) 50708: Academic Affairs Assistant/Techni estefani ID = [id number] for Dania ano, Avery POCT-GLUCOSE [id number] 08:07:00 Test Item Value Reference Range Interpretation Comments POC-GLUCOSE METER 117 mg/dL 70-110 H : TESTED A T [facility] 6720 (BEAKER) (test code = [facility], 1538) 97777: Academic Affairs Assistant/Techni estefani ID = [id number] for JANIE KAUR CBC W/PLT COUNT & AUTO [id number] 05:21:00 Test Item Value Reference Range Interpretation [...] (BEAKER) (test code = 2801) BASIC METABOLIC [id number] 05:17:00 Test Item Value Reference Range Interpretation [...] S NOT APPLICABLE FOR DIALYSIS PATIEN TS. Academic Affairs Assistant ID - DBPOCT-GLUCOSE [id number] 21:45:00 Test Item Value Reference Range Interpretation Comments POC-GLUCOSE METER 144 mg/dL 70-110 H : TESTED A T [facility] 6720 (BEAKER) (test code = [facility], 153) 08368: Academic Affairs Assistant/Techni estefani ID = [id number] for SJ HERBERT POCT-GLUCOSE [id number] 17:16:00 Test Item Value Reference Range Interpretation Comments POC-GLUCOSE METER 134 mg/dL 70-110 H : TESTED A T [facility] 6720 (BEAKER) (test code = [facility], 153) 54151: Academic Affairs Assistant/Techni estefani ID = [id number] for GUNNER PANDYA POCT-GLUCOSE [id number] 12:00:00 Test Item Value Reference Range Interpretation Comments POC-GLUCOSE METER 120 mg/dL 70-110 H : TESTED A T [facility] 6720 (BEAKER) (test code = [facility], 1538) 12002: Academic Affairs Assistant/Techni estefani ID = [id number] for FA ITH, GUNNER POCT-GLUCOSE [id number] 08:04:00 Test Item Value Reference Range Interpretation Comments POC-GLUCOSE METER 74 mg/dL 70-110 : TESTED A T [facility] 6720 (BEAKER) (test code = [facility], 1538) 48339: Academic Affairs Assistant/Techni estefani ID = [id number] for FAIT H, GUNNER POCT-GLUCOSE [id number] 21:31:00 Test Item Value Reference Range Interpretation Comments POC-GLUCOSE METER 155 mg/dL 70-110 H : TESTED A T [facility] 6720 (BEAKER) (test code = [facility], 1538) 92232: Academic Affairs Assistant/Techni estefani ID = [id number] for UL LATTIL, SJ POCT-GLUCOSE [id number] 17:03:00 Test Item Value Reference Range Interpretation Comments POC-GLUCOSE METER 127 mg/dL 70-110 H : TESTED A T [facility] 6720 (BEAKER) (test code = [facility], 1538) 27044: Academic Affairs Assistant/Techni estefani ID = [id number] for FA ITH, GUNNER POCT-GLUCOSE [id number] 12:28:00 Test Item Value Reference Range Interpretation Comments POC-GLUCOSE METER 147 mg/dL 70-110 H : TESTED A T [facility] 6720 (BEAKER) (test code = [facility], 1538) 01689: Academic Affairs Assistant/Techni estefani ID = [id number] for FA ITH, GUNNER POCT-GLUCOSE [id number] 08:06:00 Test Item Value Reference Range Interpretation Comments POC-GLUCOSE METER 107 mg/dL 70-110 : TESTED A T [facility] 6720 (BEAKER) (test code = [facility], 1538) 65190: Academic Affairs Assistant/Techni estefani ID = [id number] for FA ITH, GUNNER POCT-GLUCOSE [id number] 21:07:00 Test Item Value Reference Range Interpretation Comments POC-GLUCOSE METER 179 mg/dL 70-110 H : TESTED A T [facility] 6720 (BEAKER) (test code = [facility], 1538) 87685: Academic Affairs Assistant/Techni estefani ID = [id number] for SJ HERBERT POCT-GLUCOSE [id number] 17:04:00 Test Item Value Reference Range Interpretation Comments POC-GLUCOSE METER 201 mg/dL 70-110 H : TESTED A T [facility] 6720 (BEAKER) (test code = [facility] Jose [facility], 1538) 11795: Academic Affairs Assistant/Techni estefani ID = [id number] for GUNNER PANDYA POCT-GLUCOSE [id number] 12:29:00 Test Item Value Reference Range Interpretation Comments POC-GLUCOSE METER 110 mg/dL 70-110 : TESTED A T [facility] 6720 (BEAKER) (test code = [facility] Jose [facility], 1538) 11611: Academic Affairs Assistant/Techni estefani ID = [id number] for Avery Levy SARS-COV2/RT-PCR ([facility])2019-11-23 11:35:00 Test Item Value Reference Range Interpretation Comments SARS-COV2/RT-PCR (test Negative Not Detected, Negative, code = 1676440) See external report for linked test SARS-COV-2 PERFORMING LAB [facility] (test code = 4573556) Negative result for this test determines that [...] of the Act.Fact Sheet for Healthcare Prov iders:https://www.Lenskart.com/sites/default/files/product/documents/Fact_Sheet_HC _Doqfpyqeq_Tuol_GVJV-XdV-2.pdfFact Sheet for Healthcare Patients:https://www.Lenskart.com/sites/default/files/product/docume nts/Uwah_Qwanw_Rfjvikvy_Cxhm_IXXK-XvU-3.pdfPerforming Laboratory:[address] [address]CEDI-LHDYZXJ METER 2019-11-23 08:05:00 Test Item Value Reference Range Interpretation Comments POC-GLUCOSE METER 92 mg/dL 70-110 : TESTED A T [facility] 6720 (BEAKER) (test code = [facility], 153) 42298: Academic Affairs Assistant/Techni estefani ID = [id number] for GUNNER MUHAMMAD POCT-GLUCOSE [id number] 21:46:00 Test Item Value Reference Range Interpretation Comments POC-GLUCOSE METER 145 mg/dL 70-110 H : TESTED A T [facility] 6720 (BEAKER) (test code = [facility], 153) 22631: Academic Affairs Assistant/Techni estefani ID = [id number] for CA RBAJAL, TIMA POCT-GLUCOSE [id number] 17:51:00 Test Item Value Reference Range Interpretation Comments POC-GLUCOSE METER 180 mg/dL 70-110 H : TESTED A T [facility] 6720 (BEAKER) (test code = [facility], 153) 58734: Academic Affairs Assistant/Techni estefani ID = [id number] for SA NTOS, JACOB POCT-GLUCOSE [id number] 11:57:00 Test Item Value Reference Range Interpretation Comments POC-GLUCOSE METER 151 mg/dL 70-110 H : TESTED A T [facility] 6720 (BEAKER) (test code = [facility], 1538) 85857: Academic Affairs Assistant/Techni estefani ID = [id number] for SA NTOS, JACOB POCT-GLUCOSE [id number] 08:07:00 Test Item Value Reference Range Interpretation Comments POC-GLUCOSE METER 110 mg/dL 70-110 : TESTED A T [facility] 6720 (BEAKER) (test code = [facility], 1538) 04994: Academic Affairs Assistant/Techni estefani ID = [id number] for SA NTOS, JACOB CREATINE KINASE (CK)2019-11-22 05:38:00 Test Item Value Reference Range Interpretation Comments CREATINE KINASE TOTAL (BEAKER) (test 57 U/L 29-200 code = 380) Academic Affairs Assistant ID - DANITZA LPOCT-GLUCOSE [id number] 21:49:00 Test Item Value Reference Range Interpretation Comments POC-GLUCOSE METER 171 mg/dL 70-110 H : TESTED A T [facility] 6720 (BEAKER) (test code = [facility], 1538) 86931: Academic Affairs Assistant/Techni estefani ID = [id number] for CA RBAJAL, TIMA ANAEROBIC [id number] 18:36:00 Test Item Value Reference Range Interpretation Comments CULTURE (BEAKER) (test No anaerobes isolated code = 1095) HEPATITIS B SURFACE [id number] 17:43:00 Test Item Value Reference Range Interpretation Comments HEPATITIS B SURFACE ANTIGEN (2) Nonreactive Nonreactive (BEAKER) (test code = 2585) Specimen is considered negative for HBsAg.POCT-GLUCOSE [id number] 12:07:00 Test Item Value Reference Range Interpretation Comments POC-GLUCOSE METER 106 mg/dL 70-110 : TESTED A T [facility] 6720 (BEAKER) (test code = [facility], 1538) 79577: Academic Affairs Assistant/Techni estefani ID = [id number] for SA NTOS, JACOB POCT-GLUCOSE [id number] 08:05:00 Test Item Value Reference Range Interpretation Comments POC-GLUCOSE METER 113 mg/dL 70-110 H : TESTED A T [facility] 6720 (BEAKER) (test code = [facility], 1538) 35645: Academic Affairs Assistant/Techni estefani ID = [id number] for JACOB LYLES POCT-GLUCOSE [id number] 22:58:00 Test Item Value Reference Range Interpretation Comments POC-GLUCOSE METER 201 mg/dL 70-110 H : TESTED A T [facility] 6720 (BEAKER) (test code = [facility], [facility]) 81162: Academic Affairs Assistant/Techni estefani ID = [id number] for UL LATTIL, SJ POCT-GLUCOSE [id number] 17:14:00 Test Item Value Reference Range Interpretation Comments POC-GLUCOSE METER 128 mg/dL 70-110 H : TESTED A T [facility] 6720 (BEAKER) (test code = [facility], [facility]) 70400: Academic Affairs Assistant/Techni estefani ID = [id number] for FA ITH, GUNNER POCT-GLUCOSE [id number] 12:17:00 Test Item Value Reference Range Interpretation Comments POC-GLUCOSE METER 171 mg/dL 70-110 H : TESTED A T [facility] 6720 (BEAKER) (test code = [facility], [facility]) 30088: Academic Affairs Assistant/Techni estefani ID = [id number] for FA ITH, GUNNER POCT-GLUCOSE [id number] 23:29:00 Test Item Value Reference Range Interpretation Comments POC-GLUCOSE METER 210 mg/dL 70-110 H : TESTED A T [facility] 6720 (BEAKER) (test code = [facility]) 38164: Academic Affairs Assistant/Techni estefani ID = [id number] for UL LATTIL, SJ POCT-GLUCOSE [id number] 20:51:00 Test Item Value Reference Range Interpretation Comments POC-GLUCOSE METER 132 mg/dL 70-110 H : TESTED A T [facility] 6720 (BEAKER) (test code = [facility]) 21621: Academic Affairs Assistant/Techni estefani ID = [id number] for ALTAGRACIA SQUIRES POCT-GLUCOSE [id number] 12:26:00 Test Item Value Reference Range Interpretation Comments POC-GLUCOSE METER 155 mg/dL 70-110 H : TESTED A T [facility] 6720 (BEAKER) (test code = [facility]) 18433: Academic Affairs Assistant/Techni estefani ID = [id number] for FA ITH, GUNNER POCT-GLUCOSE [id number] 08:09:00 Test Item Value Reference Range Interpretation Comments POC-GLUCOSE METER 109 mg/dL 70-110 : TESTED A T [facility] 6720 (BEAKER) (test code = [place], 1538) 74098: Academic Affairs Assistant/Techni estefani ID = [id number] for GUNNER PANDYA BASIC METABOLIC [id number] 07:08:00 Test Item Value Reference Range Interpretation [...] S NOT APPLICABLE FOR DIALYSIS PATIEN TS. Academic Affairs Assistant ID - PIAYA LCBC (HEMOGRAM ONLY)2019-11-19 04:19:00 [...] 0-0 (BEAKER) (test code = 413) POCT-GLUCOSE [id number] 21:23:00 Test Item Value Reference Range Interpretation Comments POC-GLUCOSE METER 182 mg/dL 70-110 H : TESTED A T [facility] 6720 (BEAKER) (test code = [facility], 153) 69924: Academic Affairs Assistant/Techni estefani ID = [id number] for CA RBAJAL, TIMA POCT-GLUCOSE [id number] 17:32:00 Test Item Value Reference Range Interpretation Comments POC-GLUCOSE METER 142 mg/dL 70-110 H : TESTED A T [facility] 6720 (BEAKER) (test code = [facility], 1538) 23955: Academic Affairs Assistant/Techni estefani ID = [id number] for SA NTTONYA, JACOB POCT-GLUCOSE [id number] 13:24:00 Test Item Value Reference Range Interpretation Comments POC-GLUCOSE METER 164 mg/dL 70-110 H : TESTED A T [facility] 6720 (BEAKER) (test code = [facility], 1538) 01890: Academic Affairs Assistant/Techni estefani ID = [id number] for SA NTOS, JACOB BASIC METABOLIC [id number] 12:57:00 Test Item Value Reference Range Interpretation [...] 697) EGFR (BEAKER) (test 11 mL/min/1.73 ESTIMA DROIS GFR IS code = 1092) sq m NOT ACCURATE CREATININE CLEARANCE IN PREDICTING GLOMERULAR FILTRATION RATE . ESTIMATED GFR I S NOT APPLICABLE FOR DIALYSIS PATIEN TS. POCT-GLUCOSE [id number] 08:04:00 Test Item Value Reference Range Interpretation Comments POC-GLUCOSE METER 137 mg/dL 70-110 H : TESTED A T [facility] 6720 (BEAKER) (test code = [place], 1538) 68122: Academic Affairs Assistant/Techni estefani ID = [id number] for JACOB LYLES CBC (HEMOGRAM ONLY)2019-11-18 06:36:00 [...] 0-0 (BEAKER) (test code = 413) POCT-GLUCOSE [id number] 22:05:00 Test Item Value Reference Range Interpretation Comments POC-GLUCOSE METER 123 mg/dL 70-110 H : TESTED A T [facility] 6720 (BEAKER) (test code = [facility], 1538) 24264: Academic Affairs Assistant/Techni estefani ID = [id number] for ABDIRAHMAN OSORIO POCT-GLUCOSE [id number] 17:52:00 Test Item Value Reference Range Interpretation Comments POC-GLUCOSE METER 111 mg/dL 70-110 H : TESTED A T [facility] 6720 (BEAKER) (test code = [facility], 1538) 96148: Academic Affairs Assistant/Techni estefani ID = [id number] for JACOB LYLES BASIC METABOLIC [id number] 09:54:00 Test Item Value Reference Range Interpretation [...] S NOT APPLICABLE FOR DIALYSIS PATIEN TS. Academic Affairs Assistant ID - JAQUELINE MPOCT-GLUCOSE [id number] 08:13:00 Test Item Value Reference Range Interpretation Comments POC-GLUCOSE METER 134 mg/dL 70-110 H : TESTED A T [facility] 6720 (BEAKER) (test code = [facility], 1538) 97836: Academic Affairs Assistant/Techni estefani ID = [id number] for SA JACOB DE LEON CBC (HEMOGRAM [...] 0-0 (BEAKER) (test code = 413) POCT-GLUCOSE [id number] 21:52:00 Test Item Value Reference Range Interpretation Comments POC-GLUCOSE METER 154 mg/dL 70-110 H : TESTED A T [facility] 6720 (BEAKER) (test code = [facility], 1538) 62818: Academic Affairs Assistant/Techni estefani ID = [id number] for SA CRYSTAL HIGGINS POCT-GLUCOSE [id number] 17:47:00 Test Item Value Reference Range Interpretation Comments POC-GLUCOSE METER 179 mg/dL 70-110 H : TESTED A T [facility] 6720 (BEAKER) (test code = [facility], 1538) 99437: Academic Affairs Assistant/Techni estefani ID = [id number] for SA JACOB DE LEON POCT-GLUCOSE [id number] 11:58:00 Test Item Value Reference Range Interpretation Comments POC-GLUCOSE METER 158 mg/dL 70-110 H : TESTED A T [facility] 6720 (BEAKER) (test code = [facility], 1538) 77247: Academic Affairs Assistant/Techni estefani ID = [id number] for JACOB LYLES BASIC METABOLIC [id number] 08:15:00 Test Item Value Reference Range Interpretation [...] S NOT APPLICABLE FOR DIALYSIS PATIEN TS. Academic Affairs Assistant ID - ANTONY FPOCT-GLUCOSE [id number] 08:09:00 Test Item Value Reference Range Interpretation Comments POC-GLUCOSE METER 163 mg/dL 70-110 H : TESTED A T [facility] 6720 (BEAKER) (test code = [facility], 1538) 58424: Academic Affairs Assistant/Techni estefani ID = [id number] for JACOB LYLES CBC (HEMOGRAM ONLY)2019-11-16 07:04:00 [...] 0-0 (BEAKER) (test code = 413) POCT-GLUCOSE [id number] 21:05:00 Test Item Value Reference Range Interpretation Comments POC-GLUCOSE METER 199 mg/dL 70-110 H : TESTED A T [facility] 6720 ([facility]) (test code = [facility], 153) 48118: Academic Affairs Assistant/Techni estefani ID = [id number] for ARUNA REYES SJ POCT-GLUCOSE [id number] 17:09:00 Test Item Value Reference Range Interpretation Comments POC-GLUCOSE METER 129 mg/dL 70-110 H : TESTED A T [facility] 6720 ([facility]) (test code = [facility], 153) 45279: Academic Affairs Assistant/Techni estefani ID = [id number] for GUNNER PANDYA [id number] 16:14:00 Test Item Value Reference Range Interpretation Comments ACTIVATED CLOTTING TIME 202 sec : 74 -137 seconds, (BEAKER) (test code = Baselsalvatore ne: TESTED AT 441) [facility] 6720 [facility], 770 30: Academic Affairs Assistant/Techni estefani ID = [id number] for DAILY HOGUE POCT-GLUCOSE [id number] 15:08:00 Test Item Value Reference Range Interpretation Comments POC-GLUCOSE METER 126 mg/dL 70-110 H : TESTED A T [facility] 6720 ([facility]) (test code = [facility], 1538) 53703: Academic Affairs Assistant/Techni estefani ID = [id number] for FERNANDA YOUNGER POCT-GLUCOSE [id number] 14:35:00 Test Item Value Reference Range Interpretation Comments POC-GLUCOSE METER 137 mg/dL 70-110 H : [facility] ([facility]ER[facility] (test code = [facility], 1538) 87727: Academic Affairs Assistant/Techni estefani ID = [id number] for TYRONE VAZQUEZ (CELLAVISION MANUAL DIFF)2019-11-15 09:51:00 [...] CONCENTRATION Adequate (CELLAVISION)(BEAKER) (test code = 3438) Academic Affairs Assistant ID - Daily OverholtUser comments: Slide comments:POCT-GLUCOSE METER 2019-11-15 08:08:00 Test Item Value Reference Range Interpretation Comments POC-GLUCOSE METER 128 mg/dL 70-110 H : TESTED A T [facility] 6720 (BEAKER) (test code = [place], 1538) 50158: Academic Affairs Assistant/Techni estefani ID = [id number] for GUNNER PANDYA BASIC METABOLIC [id number] 06:08:00 Test Item Value Reference Range Interpretation [...] S NOT APPLICABLE FOR DIALYSIS PATIEN TS. Academic Affairs Assistant ID - EDASICREATINE KINASE (CK)2019-11-15 06:06:00 Test Item Value Reference Range Interpretation Comments CREATINE KINASE TOTAL (BEAKER) (test 46 U/L 29-200 code = 380) Academic Affairs Assistant ID - [id number] 05:09:00 Test Item Value Reference Range Interpretation Comments PARTIAL THROMBOPLASTIN TIME 52.1 seconds 22.5-36.0 H (BEAKER) (test code = 760) PROTHROMBIN TIME/[id number] 05:08:00 Test Item Value Reference Range Interpretation [...] 0-0 (BEAKER) (test code = 413) POCT-GLUCOSE [id number] 21:29:00 Test Item Value Reference Range Interpretation Comments POC-GLUCOSE METER 189 mg/dL 70-110 H : TESTED A T [facility] 6720 (BEAKER) (test code = DASIA Flannery [facility], 1538) 18412: Academic Affairs Assistant/Techni estefani ID = [id number] for SJ HERBERT POCT-GLUCOSE [id number] 17:22:00 Test Item Value Reference Range Interpretation Comments POC-GLUCOSE METER 208 mg/dL 70-110 H : TESTED A T [facility] 6720 (BEAKER) (test code = DASIA Flannery [facility], 1538) 09249: Academic Affairs Assistant/Techni estefani ID = [id number] for SUREKHA OLIVER TISSUE [id number] 16:50:00Surgical Pathology Report Case: [id number] Authorizing Provider: Star Cloud DPM Collected: 11/08/2019 03:53 PM Ordering Location: [facility] Received: 11/09/2019 09:35 AM PERIOPERATIVE SERVICES Pathologist: Vandana Beverly MD Specimens: A) - Metatarsal, Right, 1ST B) - Metatarsal, Right, 5TH C) - Tendon/Tendon Sheath, FROM RIGHT FOOT D) - Skin, Other, RIGHT FOOT ESCHAR A. RIGHTFOOT, IST METATARSAL, EXCISION: - ACUTE OSTEOMYELITISB. RIGHT FOOT , 5TH METATARSAL, EXCISION: - ACUTE OSTEOMYELITISC. RIGHT FOOT, TENDON/ TENDON SHEATH, EXCISION: - TENDINOUS TISSUE WITH NECROSIS AND DYSTROPHIC CALCIFICATIONS - VESSEL WITH CALCIFICATION - NEGATIVE FOR MALIGNANCY D. SKIN, RIGHT FOOT ESCHAR, EXCISION: - GANGRENOUS NECROSIS - NEGATIVE FOR MALIGNANCY Signing Pathologist Direct Phone Line: [phone] signed by Vandana Beverly MD on 11/14/2019 at 4:50 [id number] X 4 ; 77926 X 2Non-healing surgical wound, initial encounter A. [...] red trabecular bone with no gross lesions. Wort Extractor sections are submitted.Section code:A1: Smaller gardner-baca bone margin, enface, following decalcificationA2: Opposite bone margin, en face, following decalcificationB. Received fresh labeled with the patient's name, medical record number and "metatarsal, right" is a metatarsal head measuring 4.3 cm in length and ranging 1.2-2.2 cm in diameter. There is a minimal amount of at tached hemorrhagic soft tissue. The articular surface is gardner-white and smooth. The specimen is sectioned to reveal heterogeneous gardner-red trabecular bone with no gross lesions. Wort Extractor sections are submitted.Section code:B1: Bone margin, en face, following decalcificationB2 credit and collections representative of hemorrhagic soft tissue and bone, following decalcificationC. Received fresh labeled with the patient's name, medical record number and "tendon/tendon sheath" is an 8.1 x 1.3 x 0.3 cm gardner-baca, congested tendon. The specimen is serially sectioned and no gross lesions are identified. Wort Extractor sections are submitted in C1.D. Received fresh labeled with the patient's name, medical record number and "right foot eschar" is 11.5 x 11.5 x 0.8 cm aggregate of 4 irregular portions of black- baca, hyperkeratotic skin. Specimen is serially sectioned to reveal hard, hemorrhagic tissue. Wort Extractor sectionsare submitted in D1-D2.BREANNA Nava, LEW ([facility])PERFORMEDPOCT-GLUCOSE [id number] 12:59:00 Test Item Value Reference Range Interpretation Comments POC-GLUCOSE METER 257 mg/dL 70-110 H : TESTED A T [facility] 6720 ([email or web address]) (test code = [employer] [facility], 1538) 69618: Academic Affairs Assistant/Techni estefani ID = [id number] for OL MOS, SUREKHA POCT-GLUCOSE [id number] 08:50:00 Test Item Value Reference Range Interpretation Comments POC-GLUCOSE METER 183 mg/dL 70-110 H : TESTED A T [facility] 6720 ([email or web address]) (test code = [employer] [facility], 1538) 06137: Academic Affairs Assistant/Techni estefani ID = [id number] for OL MOS, SUREKHA BASIC METABOLIC [id number] 06:49:00 Test Item Value Reference Range Interpretation [...] S NOT APPLICABLE FOR DIALYSIS PATIEN TS. Academic Affairs Assistant ID - PIAYA [id number] 06:48:00 Test Item Value Reference Range Interpretation Comments MAGNESIUM (BEAKER) (test code = 2.1 mg/dL 1.6-2.6 627) Academic Affairs Assistant ID - PIAYA LCBC W/PLT COUNT & AUTO [id number] 05:42:00 Test Item Value Reference Range Interpretation [...] PERCENT (BEAKER) (test code = 2801) CALCIUM, [id number] 05:04:00 Test Item Value Reference Range Interpretation Comments CALCIUM IONIZED (BEAKER) (test 1.02 mmol/L 1.12-1.27 L code = 698) PH, BLOOD (BEAKER) (test code = 7.42 1810) POCT-GLUCOSE [id number] 21:20:00 Test Item Value Reference Range Interpretation Comments POC-GLUCOSE METER 334 mg/dL 70-110 H : TESTED Vikas Tai [facility] 6720 (BEAKER) (test code = [place], 1538) 51958: Academic Affairs Assistant/Techni estefani ID = [id number] for JAD SALGUERO POCT-GLUCOSE [id number] 17:37:00 Test Item Value Reference Range Interpretation Comments POC-GLUCOSE METER 256 mg/dL 70-110 H : TESTED A T [facility] 6720 (NOE) (test code = [place], 1538) 70322: Academic Affairs Assistant/Techni estefani ID = [id number] for JACOB LYLES SARS-COV2/RT-PCR ([facility])2019-11-13 13:07:00 Test Item Value Reference Range Interpretation Comments SARS-COV2/RT-PCR (test Negative Not Detected, Negative, code = 4188145) See external report for linked test SARS-COV-[address] [facility] KEELY (test code = 0741348) Negative result for this test determines that [...] of the Act.Fact Sheet for Healthcare Prov iders:https://www.Trunkbow.com/sites/default/files/product/documents/Fact_Sheet_HC _Wrjkugdea_Hhwb_JZTR-YrH-0.pdfFact Sheet for Healthcare Patients:https://www.L[employer]kart.com/sites/default/files/product/docume nts/Uqlr_Svpoa_Vgisqhmj_Vqac_RLER-DtI-9.pdfPerforming Laboratory:[place] [address] [address] [place], [place] [address]TANQC METABOLIC PANEL 2019-11-13 06:03:00 Test Item Value [...] S NOT APPLICABLE FOR DIALYSIS PATIEN TS. Academic Affairs Assistant ID - PIAYA LPOCT-GLUCOSE [id number] 21:20:00 Test Item Value Reference Range Interpretation Comments POC-GLUCOSE METER 234 mg/dL 70-110 H : TESTED A T [facility] 6720 (BEAKER) (test code = [facility], 1538) 61875: Academic Affairs Assistant/Techni estefani ID = [id number] for CRYSTAL RANGEL POCT-GLUCOSE [id number] 17:07:00 Test Item Value Reference Range Interpretation Comments POC-GLUCOSE METER 233 mg/dL 70-110 H : TESTED A T [facility] 6720 (BEAKER) (test code = [facility], 1538) 69219: Academic Affairs Assistant/Techni estefani ID = [id number] for GUNNER PANDYA POCT-GLUCOSE [id number] 12:06:00 Test Item Value Reference Range Interpretation Comments POC-GLUCOSE METER 248 mg/dL 70-110 H : TESTED A T [facility] 6720 (BEAKER) (test code = [facility], 1538) 39487: Academic Affairs Assistant/Techni estefani ID = [id number] for GUNNER PANDYA BASIC METABOLIC [id number] 11:18:00 Test Item Value Reference Range Interpretation [...] S NOT APPLICABLE FOR DIALYSIS PATIEN TS. Academic Affairs Assistant ID - JAQUELINE MOperator ID - JEREMY [id number] 11:15:00 Test Item Value Reference Range Interpretation Comments MAGNESIUM (BEAKER) (test code = 2.0 mg/dL 1.6-2.6 627) Academic Affairs Assistant ID - JEREMY MPOCT-GLUCOSE [id number] 07:56:00 Test Item Value Reference Range Interpretation Comments POC-GLUCOSE METER 137 mg/dL 70-110 H : TESTED A T [facility] 6720 (BEAKER) (test code = [facility], 1538) 85245: Academic Affairs Assistant/Techni estefani ID = [id number] for GUNNER PANDYA CALCIUM, [id number] 07:50:00 Test Item Value Reference Range Interpretation Comments CALCIUM IONIZED (BEAKER) (test 0.98 mmol/L 1.12-1.27 L code = 698) PH, BLOOD (BEAKER) (test code = 7.42 1810) CBC W/PLT COUNT & AUTO [id number] 06:03:00 Test Item Value Reference Range Interpretation [...] PERCENT (BEAKER) (test code = 2801) POCT-GLUCOSE [id number] 21:00:00 Test Item Value Reference Range Interpretation Comments POC-GLUCOSE METER 233 mg/dL 70-110 H : TESTED A T [facility] 6720 (BEAKER) (test code = [facility], 1538) 83293: Academic Affairs Assistant/Techni estefani ID = [id number] for SJ HERBERT POCT-GLUCOSE [id number] 16:59:00 Test Item Value Reference Range Interpretation Comments POC-GLUCOSE METER 237 mg/dL 70-110 H : TESTED A T [facility] 6720 (BEAKER) (test code = [facility], 1538) 98246: Academic Affairs Assistant/Techni estefani ID = [id number] for GUNNER PANDYA CREATINE KINASE (CK)2019-11-11 12:29:00 Test Item Value Reference Range Interpretation Comments CREATINE KINASE TOTAL (BEAKER) (test 32 U/L 29-200 code = 380) Academic Affairs Assistant ID - ANTONY FPOCT-GLUCOSE [id number] 12:04:00 Test Item Value Reference Range Interpretation Comments POC-GLUCOSE METER 237 mg/dL 70-110 H : TESTED A T [facility] 6720 (BEAKER) (test code = [facility], 1538) 03490: Academic Affairs Assistant/Techni estefani ID = [id number] for GUNNER PANDYA SURGICALLY OBTAINED CULTURE + GRAM [id number] 10:13:00 Test Item Value Reference Range Interpretation [...] No organisms seen (BEAKER) (test code = 309656) BASIC METABOLIC [id number] 08:46:00 Test Item Value Reference Range Interpretation [...] S NOT APPLICABLE FOR DIALYSIS PATIEN TS. Academic Affairs Assistant SAVANNA HARDY [id number] 08:33:00 Test Item Value Reference Range Interpretation Comments MAGNESIUM (BEAKER) (test code = 2.1 mg/dL 1.6-2.6 627) Academic Affairs Assistant SAVANNA HARDY FPOCT-GLUCOSE [id number] 08:11:00 Test Item Value Reference Range Interpretation Comments POC-GLUCOSE METER 177 mg/dL 70-110 H : TESTED Vikas Tai [facility] 6720 (BEAKER) (test code = DASIA Flannery [place], 1538) 73468: Academic Affairs Assistant/Techni estefani ID = [id number] for GUNNER PANDYA CALCIUM, [id number] 07:08:00 Test Item Value Reference Range Interpretation Comments CALCIUM IONIZED (BEAKER) (test 1.01 mmol/L 1.12-1.27 L code = 698) PH, BLOOD (BEAKER) (test code = 7.46 1810) CBC W/PLT COUNT & AUTO [id number] 06:12:00 Test Item Value Reference Range Interpretation [...] PERCENT (BEAKER) (test code = 2801) BLOOD [id number] 06:00:00 Test Item Value Reference Range Interpretation Comments CULTURE (BEAKER) (test No growth in 5 days code = 1095) BLOOD [id number] 00:00:00 Test Item Value Reference Range Interpretation Comments CULTURE (BEAKER) (test No growth in 5 days code = 1095) POCT-GLUCOSE [id number] 20:39:00 Test Item Value Reference Range Interpretation Comments POC-GLUCOSE METER 187 mg/dL 70-110 H : TESTED A T [facility] 6720 (BEAKER) (test code = [facility], 1538) 75756: Academic Affairs Assistant/Techni estefani ID = [id number] for UL ERIC, SJ POCT-GLUCOSE [id number] 12:11:00 Test Item Value Reference Range Interpretation Comments POC-GLUCOSE METER 239 mg/dL 70-110 H : TESTED A T [facility] 6720 (BEAKER) (test code = [facility], 1538) 26331: Academic Affairs Assistant/Techni estefani ID = [id number] for SA JACOB DE LEON BASIC METABOLIC [id number] 09:32:00 Test Item Value Reference Range Interpretation [...] S NOT APPLICABLE FOR DIALYSIS PATIEN TS. Academic Affairs Assistant ID - DANITZA [id number] 09:15:00 Test Item Value Reference Range Interpretation Comments MAGNESIUM (BEAKER) (test code = 2.3 mg/dL 1.6-2.6 627) Academic Affairs Assistant ID - DANITZA LPOCT-GLUCOSE [id number] 08:14:00 Test Item Value Reference Range Interpretation Comments POC-GLUCOSE METER 173 mg/dL 70-110 H : [facility] (BEAKER[facility] (test code = [place], 1538) 92985: Academic Affairs Assistant/Techni estefani ID = [id number] for JACOB LYLES CALCIUM, [id number] 07:23:00 Test Item Value Reference Range Interpretation Comments CALCIUM IONIZED (BEAKER) (test 1.02 mmol/L 1.12-1.27 L code = 698) PH, BLOOD (BEAKER) (test code = 7.39 1810) CBC W/PLT COUNT & AUTO [id number] 06:22:00 Test Item Value Reference Range Interpretation [...] (BEAKER) (test code = 2801) VANCOMYCIN LEVEL, [id number] 06:07:00 Test Item Value Reference Range Interpretation Comments VANCOMYCIN RANDOM (BEAKER) (test 29.4 ug/mL code = 523) Reference Range: No NormalsOperator ID - PIAYA LPOCT-GLUCOSE [id number] 21:26:00 Test Item Value Reference Range Interpretation Comments POC-GLUCOSE METER 250 mg/dL 70-110 H : TESTED A T [facility] 6720 (BEAKER) (test code = [facility], 1538) 42169: Academic Affairs Assistant/Techni estefani ID = [id number] for SJ HERBERT POCT-GLUCOSE [id number] 17:14:00 Test Item Value Reference Range Interpretation Comments POC-GLUCOSE METER 283 mg/dL 70-110 H : TESTED A T [facility] 6720 (BEAKER) (test code = [facility], 1538) 83226: Academic Affairs Assistant/Techni estefani ID = [id number] for GUNNER PANDYA POCT-GLUCOSE [id number] 12:13:00 Test Item Value Reference Range Interpretation Comments POC-GLUCOSE METER 233 mg/dL 70-110 H : TESTED A T [facility] 6720 (BEAKER) (test code = [facility], 1538) 54697: Academic Affairs Assistant/Techni estefani ID = [id number] for GUNNER PANDYA SPIN/CONCENTRATION [id number] 10:35:00 Test Item Value Reference Range Interpretation Comments CONCENTRATION CHARGED (BEAKER) (test Done code = 2657) POCT-GLUCOSE [id number] 08:01:00 Test Item Value Reference Range Interpretation Comments POC-GLUCOSE METER 195 mg/dL 70-110 H : TESTED A T [facility] 6720 (BEAKER) (test code = [facility], 1538) 38122: Academic Affairs Assistant/Techni estefani ID = [id number] for GUNNER PANDYA BASIC METABOLIC [id number] 06:24:00 Test Item Value Reference Range Interpretation [...] S NOT APPLICABLE FOR DIALYSIS PATIEN TS. Academic Affairs Assistant ID - [id number] 06:07:00 Test Item Value Reference Range Interpretation Comments PHOSPHORUS (BEAKER) (test code = 5.2 mg/dL 2.3-4.7 H 604) Academic Affairs Assistant ID - [id number] 06:07:00 Test Item Value Reference Range Interpretation Comments MAGNESIUM (BEAKER) (test code = 2.1 mg/dL 1.6-2.6 627) Academic Affairs Assistant ID - EDASICBC W/PLT COUNT & AUTO [id number] 06:02:00 Test Item Value Reference Range Interpretation [...] PERCENT (BEAKER) (test code = 2801) CALCIUM, [id number] 05:45:00 Test Item Value Reference Range Interpretation Comments CALCIUM IONIZED (BEAKER) (test 0.97 mmol/L 1.12-1.27 L code = 698) PH, BLOOD (BEAKER) (test code = 7.43 1810) POCT-GLUCOSE [id number] 21:43:00 Test Item Value Reference Range Interpretation Comments POC-GLUCOSE METER 343 mg/dL 70-110 H : TESTED A T [facility] 6720 (BEAKER) (test code = [place], 1538) 53364: Academic Affairs Assistant/Techni estefani ID = [id number] for CA RBAJAL, TIMA RAD, FOOT, 2 VIEWS, [id number] 21:02:00Reason for exam:->post op revision fo TMA, [...] transmetatarsal amputationof the right foot.. Signed: Francisco Martinez Verified Date/Time: 11/08/2019 21:02:38 Reading Location: [address] Transitional Reading Room POCT-GLUCOSE [id number] 17:48:00 Test Item Value Reference Range Interpretation Comments POC-GLUCOSE METER 135 mg/dL 70-110 H : TESTED A T [facility] 6720 (BEAKER) (test code = [facility], 1538) 00097: Academic Affairs Assistant/Techni estefani ID = [id number] for JACBO LYLES POCT-GLUCOSE [id number] 16:57:00 Test Item Value Reference Range Interpretation Comments POC-GLUCOSE METER 130 mg/dL 70-110 H : TESTED A T [facility] 6720 (BEAKER) (test code = [facility], 1538) 32440: Academic Affairs Assistant/Techni estefani ID = [id number] for ROSE GONZALES POCT-GLUCOSE [id number] 12:31:00 Test Item Value Reference Range Interpretation Comments POC-GLUCOSE METER 117 mg/dL 70-110 H : TESTED A T [facility] 6720 (BEAKER) (test code = [facility], 1538) 18604: Academic Affairs Assistant/Techni estefani ID = [id number] for Destini Contreras BASIC METABOLIC [id number] 06:39:00 Test Item Value Reference Range Interpretation [...] S NOT APPLICABLE FOR DIALYSIS PATIEN TS. Academic Affairs Assistant ID - GARYZAYRA [id number] 06:38:00 Test Item Value Reference Range Interpretation Comments PHOSPHORUS (BEAKER) (test code = 5.2 mg/dL 2.3-4.7 H 604) Academic Affairs Assistant ID - GARYZAYRA [id number] 06:38:00 Test Item Value Reference Range Interpretation Comments MAGNESIUM (BEAKER) (test code = 2.1 mg/dL 1.6-2.6 627) Academic Affairs Assistant ID - GARYZAYRA LVANCOMYCIN LEVEL, [id number] 06:18:00 Test Item Value Reference Range Interpretation Comments VANCOMYCIN RANDOM (BEAKER) (test 14.1 ug/mL code = 523) Reference Range: No NormalsOperator ID - DANITZA LCBC W/PLT COUNT & AUTO [id number] 05:32:00 Test Item Value Reference Range Interpretation [...] PERCENT (BEAKER) (test code = 2801) POCT-GLUCOSE [id number] 21:15:00 Test Item Value Reference Range Interpretation Comments POC-GLUCOSE METER 199 mg/dL 70-110 H : TESTED A T [facility] 6720 (BEAKER) (test code = [facility], 153) 17735: Academic Affairs Assistant/Techni estefani ID = [id number] for SA HIGGINS, CRYSTAL POCT-GLUCOSE [id number] 17:20:00 Test Item Value Reference Range Interpretation Comments POC-GLUCOSE METER 214 mg/dL 70-110 H : TESTED A T [facility] 6720 (BEAKER) (test code = [facility], 153) 93694: Academic Affairs Assistant/Techni estefani ID = [id number] for SA NTOS, JACOB POCT-GLUCOSE [id number] 12:59:00 Test Item Value Reference Range Interpretation Comments POC-GLUCOSE METER 135 mg/dL 70-110 H : TESTED A T [facility] 6720 (BEAKER) (test code = [facility] [place], 1538) 65[address]: Academic Affairs Assistant/Techni estefani ID = [id number] for JACOB LYLES POCT-GLUCOSE [id number] 06:05:00 Test Item Value Reference Range Interpretation Comments POC-GLUCOSE METER 130 mg/dL 70-110 H : TESTED A T [facility] 6720 (BEAKER) (test code = [facility] [place], [address]38) [address]: Academic Affairs Assistant/Techni estefani ID = [id number] for SJ HERBERT BASIC METABOLIC [id number] 05:38:00 Test Item Value Reference Range Interpretation [...] S NOT APPLICABLE FOR DIALYSIS PATIEN TS. Academic Affairs Assistant ID - [id number] 05:36:00 Test Item Value Reference Range Interpretation Comments PHOSPHORUS (BEAKER) (test code = 5.1 mg/dL 2.3-4.7 H 604) Academic Affairs Assistant ID - [id number] 05:36:00 Test Item Value Reference Range Interpretation Comments MAGNESIUM (BEAKER) (test code = 2.2 mg/dL 1.6-2.6 627) Academic Affairs Assistant ID - EDASIPOCT-GLUCOSE [id number] 03:01:00 Test Item Value Reference Range Interpretation Comments POC-GLUCOSE METER 72 mg/dL 70-110 : TESTED A T [facility] 6720 (BEAKER) (test code = [facility], [facility]8) 68345: Academic Affairs Assistant/Techni estefani ID = [id number] for ADRY TTIL, SJ POCT-GLUCOSE [id number] 00:16:00 Test Item Value Reference Range Interpretation Comments POC-GLUCOSE METER 94 mg/dL 70-110 : TESTED A T [facility] 6720 (BEAKER) (test code = [facility], [facility]) 54066: Academic Affairs Assistant/Techni estefani ID = [id number] for ADRY TTIL, SJ POCT-GLUCOSE [id number] 23:44:00 Test Item Value Reference Range Interpretation Comments POC-GLUCOSE METER 57 mg/dL 70-110 L : TESTED A T [facility] 6720 (BEAKER) (test code = [facility], [facility]) 53686: Academic Affairs Assistant/Techni estefani ID = [id number] for ADRY TTIL, SJ POCT-GLUCOSE [id number] 21:06:00 Test Item Value Reference Range Interpretation Comments POC-GLUCOSE METER 80 mg/dL 70-110 : TESTED A T [facility] 6720 (BEAKER) (test code = [facility], [facility]8) 96817: Academic Affairs Assistant/Techni estefani ID = [id number] for ADRY TTIL, SJ POCT-GLUCOSE [id number] 18:03:00 Test Item Value Reference Range Interpretation Comments POC-GLUCOSE METER 70 mg/dL 70-110 : TESTED A T [facility] 6720 (BEAKER) (test code = [facility], [facility]8) 08991: Academic Affairs Assistant/Techni estefani ID = [id number] for JUAN Z, EVONNE VIAL POCT-GLUCOSE [id number] 17:47:00 Test Item Value Reference Range Interpretation Comments POC-GLUCOSE METER 45 mg/dL 70-110 L : TESTED A T [facility] 6720 (BEAKER) (test code = [facility], [facility]) 68528: Academic Affairs Assistant/Techni estefani ID = [id number] for JUAN Z, EVONNE VIAL SARS-COV2/RT-PCR ([facility])2019-11-06 13:38:00 Test Item Value Reference Range Interpretation Comments SARS-COV2/RT-PCR (test Negative Not Detected, Negative, code = 7280927) See external report for linked test SARS-COV-[address] [facility] KEELY (test code = 8212775) Negative result for this test determines that [...] of the Act.Fact Sheet for Healthcare Prov iders:https://www.Trunkbow.Ukash/sites/default/files/product/documents/Fact_Sheet_HC _Pjceyopdi_Abwl_EPAO-TlJ-6.pdfFact Sheet for Healthcare Patients:https://www.Trunkbow.Ukash/sites/default/files/product/docume nts/Iuxq_Jetqf_Lvmvmsjc_Ckwv_VWDX-MyW-5.pdfPerforming Laboratory:[place] [address] [address] StephensNew [place], [place] [id number] 12:56:00 Test Item Value Reference Range Interpretation Comments FERRITIN (BEAKER) (test code = 1137.02 ng/mL 5.00-275.00 H 361) Academic Affairs Assistant ID - NTPIRON, TIBC, % SAT. (WITHOUT FERRITIN)2019-11-06 12:36:00 Test Item Value Reference Range Interpretation Comments IRON (BEAKER) (test code = 547) 16.0 ug/dL 40.0-160.0 L TOTAL IRON BINDING CAPACITY 139 ug/dL 250-450 L (BEAKER) (test code = 769) IRON % SATURATION (2) (BEAKER) 12 % 20-55 L (test code = 2590) Academic Affairs Assistant ID - NTPRAD, FOOT, MIN 3 VIEWS, [id number] 11:14:00Reason for exam:->Nonhealing right TMA stump; open [...] ROSANGELA Luna August Radiology Reading Room POCT-GLUCOSE [id number] 06:53:00 Test Item Value Reference Range Interpretation Comments POC-GLUCOSE METER 81 mg/dL 70-110 : TESTED A T [facility] 6720 (BEAKER) (test code = [facility] Flannery [facility], 1538) 28592: Academic Affairs Assistant/Techni estefani ID = [id number] for ADRY TTIL, SJ [id number] 06:44:00 Test Item Value Reference Range Interpretation Comments MAGNESIUM (BEAKER) (test code = 2.3 mg/dL 1.6-2.6 627) Academic Affairs Assistant ID - [id number] 06:44:00 Test Item Value Reference Range Interpretation Comments PHOSPHORUS (BEAKER) (test code = 5.4 mg/dL 2.3-4.7 H 604) Academic Affairs Assistant ID - DBPOCT-GLUCOSE [id number] 06:36:00 Test Item Value Reference Range Interpretation Comments POC-GLUCOSE METER 61 mg/dL 70-110 L : TESTED A T [facility] 6720 (BEAKER) (test code = [place], 1538) 44[address]: Academic Affairs Assistant/Techni estefani ID = [id number] for SJ WHITAKER CBC W/PLT COUNT & AUTO [id number] 06:23:00 Test Item Value Reference Range Interpretation [...] (BEAKER) (test code = 2801) VANCOMYCIN LEVEL, [id number] 06:22:00 Test Item Value Reference Range Interpretation Comments VANCOMYCIN RANDOM (BEAKER) (test 12.3 ug/mL code = 523) Reference Range: No NormalsOperator ID - EDASIPOCT-GLUCOSE [id number] 06:07:00 Test Item Value Reference Range Interpretation Comments POC-GLUCOSE METER 42 mg/dL 70-110 L : TESTED A T [facility] 6720 (BEAKER) (test code = [place], 1538) 43676: Academic Affairs Assistant/Techni estefani ID = [id number] for SJ WHITAKER CREATINE KINASE (CK)2019-11-06 05:29:00 Test Item Value Reference Range Interpretation Comments CREATINE KINASE TOTAL (BEAKER) (test 131 U/L 29-200 code = 380) Academic Affairs Assistant ID - EDASICOMPREHENSIVE METABOLIC [id number] 05:29:00 Test Item Value Reference Range Interpretation [...] S NOT APPLICABLE FOR DIALYSIS PATIEN TS. Academic Affairs Assistant ID - EDASICOMPREHENSIVE METABOLIC [id number] 23:15:00 Test Item Value Reference Range Interpretation [...] S NOT APPLICABLE FOR DIALYSIS PATIEN TS. Academic Affairs Assistant ID - DBLACTIC ACID, [id number] 23:09:00 Test Item Value Reference Range Interpretation Comments LACTATE BLOOD VENOUS (2) (AKER) 1.19 mmol/L 0.50-2.20 (test code = 2872) Academic Affairs Assistant ID - DBPOCT-GLUCOSE [id number] 22:24:00 Test Item Value Reference Range Interpretation Comments POC-GLUCOSE METER 103 mg/dL 70-110 : TESTED A T [facility] 6720 (BEAKER) (test code = [facility], 1538) 88594: Academic Affairs Assistant/Techni estefani ID = [id number] for UL LATTIL, SJ POCT-GLUCOSE [id number] 21:50:00 Test Item Value Reference Range Interpretation Comments POC-GLUCOSE METER 63 mg/dL 70-110 L : TESTED A T [facility] 6720 (BEAKER) (test code = [facility], 1538) 64301: Academic Affairs Assistant/Techni estefani ID = [id number] for ADRY TTIL, SJ POCT-GLUCOSE [id number] 21:33:00 Test Item Value Reference Range Interpretation Comments POC-GLUCOSE METER 42 mg/dL 70-110 L : TESTED A T [facility] 6720 (BEAKER) (test code = [facility], 1538) 79078: Academic Affairs Assistant/Techni estefani ID = [id number] for ADRY TTIL, SJ ANAEROBIC [id number] 19:16:00 Test Item Value Reference Range Interpretation Comments CULTURE (AKER) A 2+ Same org anism has been (test code = 1095) isolated from culture(s) of the same body s ite and collection date . Repeat identification performed only after cons ultation with the [facility] microbiology laboratory.Refe r to previous cultur e of* - Cutibacterium a cnes ANAEROBIC [id number] 19:13:00 Test Item Value Reference Range Interpretation Comments CULTURE (BEAKER) (test A 2+ Cu tibacterium acnes code = 1095) POCT-GLUCOSE [id number] 11:08:00 Test Item Value Reference Range Interpretation Comments POC-GLUCOSE METER 136 mg/dL 70-110 H : TESTED A T [facility] 6720 (BEAKER) (test code = [employer] [facility], 1538) 28154: Academic Affairs Assistant/Techni estefani ID = [id number] for SOPHIE GARCIA, YUNIOR POCT-GLUCOSE [id number] 07:51:00 Test Item Value Reference Range Interpretation Comments POC-GLUCOSE METER 89 mg/dL 70-110 : TESTED A T [facility] 6720 (BEAKER) (test code = [employer] [facility], 1538) 41403: Academic Affairs Assistant/Techni estefani ID = [id number] for YUNIRO JOHNSTON POCT-GLUCOSE [id number] 21:07:00 Test Item Value Reference Range Interpretation Comments POC-GLUCOSE METER 145 mg/dL 70-110 H : TESTED A T [facility] 6720 (BEAKER) (test code = [employer] [facility], 1538) 02197: Academic Affairs Assistant/Techni estefani ID = [id number] for AN RON BAIRD POCT-GLUCOSE [id number] 14:59:00 Test Item Value Reference Range Interpretation Comments POC-GLUCOSE METER 152 mg/dL 70-110 H : TESTED A T [facility] 6720 (BEAKER) (test code = [employer] [facility], 1538) 45042: Academic Affairs Assistant/Techni estefani ID = [id number] for Mims thien, Mary Lou BASIC METABOLIC [id number] 10:10:00 Test Item Value Reference Range Interpretation [...] S NOT APPLICABLE FOR DIALYSIS PATIEN TS. Academic Affairs Assistant ID - EDASISURGICALLY OBTAINED CULTURE + GRAM [id number] 09:54:00 Test Item Value Reference Range Interpretation Comments CULTURE (BEAKER) A <1+ Same or ganism has (test code = been isolated f rom 1095) cultures(s) of the same body site and collection date . Repeat identifi cation and susceptibil ity testing perform ed only after consultat ion with the [facility] microbiology laboratory.Refe r to previous cultur e ofCandida parap silosis GRAM STAIN 1+ WBCs RESULT (BEAKER) (test code = 1123) GRAM STAIN <1+ gram RESULT (BEAKER) negative rods (test code = 086731) GRAM STAIN <1+ gram RESULT (BEAKER) positive cocci (test code = in pairs 049126) 1+ Skin floraSURGICALLY OBTAINED CULTURE + GRAM [id number] 09:49:00 Test Item Value Reference Interpretation Comments [...] gram negative (BEAKER) (test code = rods 888200) GRAM STAIN RESULT <1+ gram positive (BEAKER) (test code = rods 921859) GRAM STAIN RESULT 2+ gram positive (BEAKER) (test code = cocci in pairs 843419) GRAM STAIN RESULT 1+ gram positive (BEAKER) (test code = cocci in clusters 603616) GRAM STAIN RESULT 1+ yeast (BEAKER) (test code = 136955) 3+ Skin lake consisting of Coagulase Negative Staphylococcus and Diphtheroid species.POCT-GLUCOSE [id number] 08:04:00 Test Item Value Reference Range Interpretation Comments POC-GLUCOSE METER 92 mg/dL 70-110 : TESTED A T [facility] 6720 (BEAKER) (test code = [facility], [facility]) 81821: Academic Affairs Assistant/Techni estefani ID = [id number] for Will Phil valadez POCT-GLUCOSE [id number] 21:49:00 Test Item Value Reference Range Interpretation Comments POC-GLUCOSE METER 155 mg/dL 70-110 H : TESTED A T [facility] 6720 (BEAKER) (test code = [facility], 153) 60869: Academic Affairs Assistant/Techni estefani ID = [id number] for AN RON BAIRD POCT-GLUCOSE [id number] 18:15:00 Test Item Value Reference Range Interpretation Comments POC-GLUCOSE METER 160 mg/dL 70-110 H : TESTED A T [facility] 6720 (BEAKER) (test code = [facility], 153) 97061: Academic Affairs Assistant/Techni estefani ID = [id number] for Me ndez, Celi POCT-GLUCOSE [id number] 14:24:00 Test Item Value Reference Range Interpretation Comments POC-GLUCOSE METER 182 mg/dL 70-110 H : TESTED A T [facility] 6720 (BEAKER) (test code = [facility], 153) 02073: Academic Affairs Assistant/Techni estefani ID = [id number] for Me ndez, Celi POCT-GLUCOSE [id number] 09:44:00 Test Item Value Reference Range Interpretation Comments POC-GLUCOSE METER 146 mg/dL 70-110 H : TESTED A T [facility] 6720 (BEAKER) (test code = [place], 1538) 48166: Academic Affairs Assistant/Techni estefani ID = [id number] for Celi Jesus BASIC METABOLIC [id number] 07:20:00 Test Item Value Reference Range Interpretation [...] S NOT APPLICABLE FOR DIALYSIS PATIEN TS. Academic Affairs Assistant ID - PIAYA LCBC W/PLT COUNT & AUTO [id number] 05:47:00 Test Item Value Reference Range Interpretation [...] PERCENT (BEAKER) (test code = 2801) POCT-GLUCOSE [id number] 05:39:00 Test Item Value Reference Range Interpretation Comments POC-GLUCOSE METER 200 mg/dL 70-110 H : TESTED A T [facility] 6720 (BEAKER) (test code = [facility], 1538) 09824: Academic Affairs Assistant/Techni estefani ID = [id number] for CHRIS MAJANO POCT-GLUCOSE [id number] 05:35:00 Test Item Value Reference Range Interpretation Comments POC-GLUCOSE METER 120 mg/dL 70-110 H : TESTED A T [facility] 6720 (BEAKER) (test code = [facility], 1538) 38369: Academic Affairs Assistant/Techni estefani ID = [id number] for EVONNE RUBY POCT-GLUCOSE [id number] 05:25:00 Test Item Value Reference Range Interpretation Comments POC-GLUCOSE METER 126 mg/dL 70-110 H : TESTED A T [facility] 6720 (BEAKER) (test code = [facility], [facility]8) 58540: Academic Affairs Assistant/Techni estefani ID = [id number] for Celi Jesus POCT-GLUCOSE [id number] 05:19:00 Test Item Value Reference Range Interpretation Comments POC-GLUCOSE METER 103 mg/dL 70-110 : TESTED A T [facility] 6720 (BEAKER) (test code = [facility], [facility]8) 74756: Academic Affairs Assistant/Techni estefani ID = [id number] for Celi Jesus HEPATITIS B SURFACE [id number] 11:26:00 Test Item Value Reference Range Interpretation Comments HEPATITIS B SURFACE ANTIGEN (2) Nonreactive Nonreactive (AKER) (test code = 2585) Specimen is considered negative for HBsAg.POCT-GLUCOSE [id number] 21:38:00 Test Item Value Reference Range Interpretation Comments POC-GLUCOSE METER 170 mg/dL 70-110 H : TESTED A T [facility] 6720 (BEAKER) (test code = [facility]) 93611: Academic Affairs Assistant/Techni estefani ID = [id number] for RON GODWIN POCT-GLUCOSE [id number] 17:00:00 Test Item Value Reference Range Interpretation Comments POC-GLUCOSE METER 150 mg/dL 70-110 H : TESTED A T [facility] 6720 (BEAKER) (test code = [facility], [facility]) 07424: Academic Affairs Assistant/Techni estefani ID = [id number] for Ma rtinez, Katie POCT-GLUCOSE [id number] 08:37:00 Test Item Value Reference Range Interpretation Comments POC-GLUCOSE METER 105 mg/dL 70-110 : TESTED A T [facility] 6720 (BEAKER) (test code = [facility], [facility]8) 50333: Academic Affairs Assistant/Techni estefani ID = [id number] for Ma rtinez, Katie POCT-GLUCOSE [id number] 17:56:00 Test Item Value Reference Range Interpretation Comments POC-GLUCOSE METER 96 mg/dL 70-110 : TESTED A T [facility] 6720 (BEAKER) (test code = [place], 1538) 70585: Academic Affairs Assistant/Techni estefani ID = [id number] for ROSE CHAVEZ BLOOD GAS, [id number] 17:17:00 Test Item Value Reference Range Interpretation [...] code = 1819) 90.0 % SODIUM NA-STAT [id number] 17:17:00 Test Item Value Reference Range Interpretation Comments SODIUM (BEAKER) (test code = 381) 134 meq/L 136-145 L HGB/HCT (H&H) - STAT [id number] 17:17:00 Test Item Value Reference Range Interpretation Comments HEMOGLOBIN (BEAKER) (test code = 11.4 g/dL 13.0-16.8 L 410) HEMATOCRIT (BEAKER) (test code = 34.0 % 40.0-50.0 L 411) CALCIUM, [id number] 17:17:00 Test Item Value Reference Range Interpretation Comments CALCIUM IONIZED (BEAKER) (test 1.22 mmol/L 1.12-1.27 code = 698) PH, BLOOD (BEAKER) (test code = 7.30 1810) GLUCOSE-STAT [id number] 17:16:00 Test Item Value Reference Range Interpretation Comments GLUCOSE RANDOM (BEAKER) (test code = 92 mg/dL 70-110 652) POTASSIUM-STAT [id number] 17:16:00 Test Item Value Reference Range Interpretation Comments POTASSIUM (BEAKER) (test code = 4.3 meq/L 3.6-5.5 379) CALCIUM, [id number] 15:59:00 Test Item Value Reference Range Interpretation Comments CALCIUM IONIZED (BEAKER) (test 1.07 mmol/L 1.12-1.27 L code = 698) PH, BLOOD (BEAKER) (test code = 7.48 1810) BLOOD GAS, [id number] 15:59:00 Test Item Value Reference Range Interpretation [...] code = 1819) 50.0 % SODIUM NA-STAT [id number] 15:59:00 Test Item Value Reference Range Interpretation Comments SODIUM (BEAKER) (test code = 381) 133 meq/L 136-145 L HGB/HCT (H&H) - STAT [id number] 15:59:00 Test Item Value Reference Range Interpretation Comments HEMOGLOBIN (BEAKER) (test code = 10.8 g/dL 13.0-16.8 L 410) HEMATOCRIT (BEAKER) (test code = 32.0 % 40.0-50.0 L 411) GLUCOSE-STAT [id number] 15:58:00 Test Item Value Reference Range Interpretation Comments GLUCOSE RANDOM (BEAKER) (test code 101 mg/dL 70-110 = 652) POTASSIUM-STAT [id number] 15:58:00 Test Item Value Reference Range Interpretation Comments POTASSIUM (BEAKER) (test code = 4.1 meq/L 3.6-5.5 379) CALCIUM, [id number] 15:12:00 Test Item Value Reference Range Interpretation Comments CALCIUM IONIZED (BEAKER) (test 1.07 mmol/L 1.12-1.27 L code = 698) PH, BLOOD (BEAKER) (test code = 7.48 1810) BLOOD GAS, [id number] 15:12:00 Test Item Value Reference Range Interpretation [...] code = 1819) 50.0 % SODIUM NA-STAT [id number] 15:12:00 Test Item Value Reference Range Interpretation Comments SODIUM (BEAKER) (test code = 381) 134 meq/L 136-145 L GLUCOSE-STAT [id number] 15:12:00 Test Item Value Reference Range Interpretation Comments GLUCOSE RANDOM (BEAKER) (test code = 64 mg/dL 70-110 L 652) HGB/HCT (H&H) - STAT [id number] 15:12:00 Test Item Value Reference Range Interpretation Comments HEMOGLOBIN (BEAKER) (test code = 10.9 g/dL 13.0-16.8 L 410) HEMATOCRIT (BEAKER) (test code = 32.0 % 40.0-50.0 L 411) POTASSIUM-STAT [id number] 15:10:00 Test Item Value Reference Range Interpretation Comments POTASSIUM (BEAKER) (test code = 4.2 meq/L 3.6-5.5 379) SARS-COV2/RT-PCR ([facility])2019-10-18 09:21:00 Test Item Value Reference Range Interpretation Comments SARS-COV2/RT-PCR (test code Negative Not Detected, Negative, = 1729909) See external report for linked test SARS-COV-[address] [facility] (test code = 4008828) Negative results do not preclude SARS-CoV-2 infection [...] of the Act.Fact Sheet for Healthcare Pro viders:https://www.WeWork.Ukash/Documents/Xpert%20Xpress%20SARS%20CoV-2/Fact%20Sh eets/302-3802%41TNTM-NGF-6%20HEALTHCARE%20PROVIDERS%20FACT%20SHEET.pdfFact Sheet for Healthcare Patients:https://www.CompStak id.Ukash/Documents/Xpert%20Xpress%20SARS%20CoV-2/Fact%20Sheets/302-3801%20SARS-COV -2%20PATIENT%20FACT%20SHEET.pdfPerforming Laboratory:[facility], [place] [address]AMM AND CREATININE [id number] 08:45:00 Test Item Value Reference Range Interpretation Comments BLOOD UREA NITROGEN 58 mg/dL 7-21 H (BEAKER) (test code = 354) CREATININE (BEAKER) 7.72 mg/dL 0.57-1.25 H (test code = 358) BUN/CREAT RATIO 8 Unable to ca lculate (BEAKER) (test code due to n on-numeric = [id number]) results EGFR (BEAKER) (test 7 mL/min/1.73 ESTIMAT ED GFR IS code = 1092) sq m NOT ACCURATE CREATININE CLEARANCE IN PREDICTING GLOMERULAR FILTRATION RATE . ESTIMATED GFR I S NOT APPLICABLE FOR DIALYSIS PATIEN TS. Academic Affairs Assistant ID - [id number] 08:43:00 Test Item Value Reference Range Interpretation Comments SODIUM (BEAKER) (test code = 381) 137 meq/L 136-145 POTASSIUM (BEAKER) (test code = 5.1 meq/L 3.5-5.1 379) CHLORIDE (BEAKER) (test code = 382) 100 meq/L 98-107 CO2 (BEAKER) (test code = 355) 23 meq/L 22-29 Academic Affairs Assistant ID - [id number] 08:43:00 Test Item Value Reference Range Interpretation Comments GLUCOSE RANDOM (BEAKER) (test code 157 mg/dL 70-105 H = 652) Academic Affairs Assistant ID - [id number] 08:16:00 Test Item Value Reference Range Interpretation Comments HEMOGLOBIN (BEAKER) (test code = 11.1 GM/DL 13.7-17.5 L 410) Academic Affairs Assistant ID - [id number] 08:16:00 Test Item Value Reference Range Interpretation Comments PLATELET COUNT (BEAKER) (test 259 K/CU MM 150-450 code = 756) Academic Affairs Assistant ID - 6000POCT-GLUCOSE [id number] 06:26:00 Test Item Value Reference Range Interpretation Comments POC-GLUCOSE METER 129 mg/dL 70-110 H : TESTED A T [facility] 6720 (BEAKER) (test code [facility], = 1538) 38756: Academic Affairs Assistant/Techni estefani ID = [id number] for JORD AN, LACRYSTAL BUN AND CREATININE [id number] 10:25:00 Test Item Value Reference Range Interpretation [...] S NOT APPLICABLE FOR DIALYSIS PATIEN TS. Academic Affairs Assistant ID - [id number] 10:23:00 Test Item Value Reference Range Interpretation Comments SODIUM (BEAKER) (test code = 381) 140 meq/L 136-145 POTASSIUM (BEAKER) (test code = 4.5 meq/L 3.5-5.1 379) CHLORIDE (BEAKER) (test code = 382) 101 meq/L 98-107 CO2 (BEAKER) (test code = 355) 26 meq/L 22-29 Academic Affairs Assistant ID - [id number] 10:23:00 Test Item Value Reference Range Interpretation Comments GLUCOSE RANDOM (BEAKER) (test code 157 mg/dL 70-105 H = 652) Academic Affairs Assistant ID - [id number] 10:11:00 Test Item Value Reference Range Interpretation Comments HEMOGLOBIN (BEAKER) (test code = 12.2 GM/DL 13.7-17.5 L 410) Academic Affairs Assistant ID - [id number] CULTURE + SMEAR (NON-SPUTUM)2019-08-01 12:08:00 Test Item Value Reference Range Interpretation Comments CULTURE (BEAKER) (test No acid-fast bacilli code = 1095) isolated in 42 days AFB SMEAR (BEAKER) No acid fast bacilli (test code = 994) seen FUNGUS CULTURE + [id number] 17:59:00 Test Item Value Reference Range Interpretation Comments CULTURE (BEAKER) (test No fungus isolated in code = 1095) 28 days FUNGUS SMEAR (BEAKER) No fungal elements seen (test code = 1406) POCT-GLUCOSE [id number] 12:17:00 Test Item Value Reference Range Interpretation Comments POC-GLUCOSE METER 159 mg/dL 70-110 H : TESTED A T [facility] 6720 (BEAKER) (test code = [facility], 1538) 26367: Academic Affairs Assistant/Techni estefani ID = [id number] for BLESSING TUTTLE POCT-GLUCOSE [id number] 08:03:00 Test Item Value Reference Range Interpretation Comments POC-GLUCOSE METER 119 mg/dL 70-110 H : TESTED A T [facility] 6720 (BEAKER) (test code = [place] [place], 1538) 76293: Academic Affairs Assistant/Techni estefani ID = [id number] for Izaiah Barber BASIC METABOLIC [id number] 05:28:00 Test Item Value Reference Range Interpretation [...] S NOT APPLICABLE FOR DIALYSIS PATIEN TS. Academic Affairs Assistant ID - JAQUELINE [id number] 05:26:00 Test Item Value Reference Range Interpretation Comments PHOSPHORUS (BEAKER) (test code = 6.1 mg/dL 2.3-4.7 H 604) Academic Affairs Assistant ID - JAQUELINE [id number] 05:26:00 Test Item Value Reference Range Interpretation Comments MAGNESIUM (BEAKER) (test code = 2.5 mg/dL 1.6-2.6 627) Academic Affairs Assistant ID - JAQUELINE [facility] W/PLT COUNT & AUTO [id number] 05:12:00 Test Item Value Reference Range Interpretation [...] PERCENT (BEAKER) (test code = 2801) POCT-GLUCOSE [id number] 21:05:00 Test Item Value Reference Range Interpretation Comments POC-GLUCOSE METER 250 mg/dL 70-110 H : TESTED A T [facility] 6720 (BEAKER) (test code = [facility], 1538) [id number]: Academic Affairs Assistant/Techni estefani ID = [id number] for SERENA RANKIN POCT-GLUCOSE [id number] 16:53:00 Test Item Value Reference Range Interpretation Comments POC-GLUCOSE METER 217 mg/dL 70-110 H : TESTED A T [facility] 6720 (BEAKER) (test code = [facility], 1538) 06830: Academic Affairs Assistant/Techni estefani ID = [id number] for HU NTER, HIWITHA POCT-GLUCOSE [id number] 11:50:00 Test Item Value Reference Range Interpretation Comments POC-GLUCOSE METER 208 mg/dL 70-110 H : TESTED A T [facility] 6720 (BEAKER) (test code = [facility], 1538) 41330: Academic Affairs Assistant/Techni estefani ID = [id number] for HU NTER, HIWITHA ANAEROBIC [id number] 10:57:00 Test Item Value Reference Range Interpretation Comments CULTURE (BEAKER) (test code A 4+ Prevotella bivia = 1095) POCT-GLUCOSE [id number] 07:24:00 Test Item Value Reference Range Interpretation Comments POC-GLUCOSE METER 231 mg/dL 70-110 H : TESTED A T [facility] 6720 (BEAKER) (test code = [facility], 1538) 29897: Academic Affairs Assistant/Techni estefani ID = [id number] for HU NTER, HIWITHA BASIC METABOLIC [id number] 04:18:00 Test Item Value Reference Range Interpretation [...] S NOT APPLICABLE FOR DIALYSIS PATIEN TS. Academic Affairs Assistant ID Benjie LUEVANO [id number] 04:17:00 Test Item Value Reference Range Interpretation Comments PHOSPHORUS (BEAKER) (test code = 5.1 mg/dL 2.3-4.7 H 604) Academic Affairs Assistant ID - BASSEM [id number] 04:17:00 Test Item Value Reference Range Interpretation Comments MAGNESIUM (BEAKER) (test code = 2.4 mg/dL 1.6-2.6 627) Academic Affairs Assistant ID - BASSEM WCBC W/PLT COUNT & AUTO [id number] 04:17:00 Test Item Value Reference Range Interpretation [...] PERCENT (BEAKER) (test code = 2801) POCT-GLUCOSE [id number] 00:03:00 Test Item Value Reference Range Interpretation Comments POC-GLUCOSE METER 245 mg/dL 70-110 H : TESTED A T [facility] 6720 (BEAKER) (test code = [facility], 153) 90264: Academic Affairs Assistant/Techni estefani ID = [id number] for FRANCK SKELTON POCT-GLUCOSE [id number] 21:18:00 Test Item Value Reference Range Interpretation Comments POC-GLUCOSE METER 252 mg/dL 70-110 H : TESTED A T [facility] 6720 (BEAKER) (test code = [facility], 1538) 65965: Academic Affairs Assistant/Techni estefani ID = [id number] for KAVYA WHITMORE POCT-GLUCOSE [id number] 16:53:00 Test Item Value Reference Range Interpretation Comments POC-GLUCOSE METER 175 mg/dL 70-110 H : TESTED A T [facility] 6720 (BEAKER) (test code = [facility], 1538) 18722: Academic Affairs Assistant/Techni estefani ID = [id number] for Do minguez, Isaías POCT-GLUCOSE [id number] 13:58:00 Test Item Value Reference Range Interpretation Comments POC-GLUCOSE METER 191 mg/dL 70-110 H : TESTED A T [facility] 6720 (BEAKER) (test code = [facility], 1538) 20130: Academic Affairs Assistant/Techni estefani ID = [id number] for Isaías Piedra POCT-GLUCOSE [id number] 11:18:00 Test Item Value Reference Range Interpretation Comments POC-GLUCOSE METER 88 mg/dL 70-110 : TESTED A T [facility] 6720 (BEAKER) (test code = [facility], 1538) 09420: Academic Affairs Assistant/Techni estefani ID = [id number] for CORNELIUS SANDY POCT-GLUCOSE [id number] 07:59:00 Test Item Value Reference Range Interpretation Comments POC-GLUCOSE METER 112 mg/dL 70-110 H : TESTED A T [facility] 6720 (BEAKER) (test code = [facility], 1538) 87669: Academic Affairs Assistant/Techni estefani ID = [id number] for CORNELIUS MAO BASIC METABOLIC [id number] 07:35:00 Test Item Value Reference Range Interpretation [...] S NOT APPLICABLE FOR DIALYSIS PATIEN TS. Academic Affairs Assistant ID - PIZAYRA [id number] 07:27:00 Test Item Value Reference Range Interpretation Comments PHOSPHORUS (BEAKER) (test code = 7.1 mg/dL 2.3-4.7 H 604) Academic Affairs Assistant ID Benjie BOSCH [id number] 07:27:00 Test Item Value Reference Range Interpretation Comments MAGNESIUM (BEAKER) (test code = 2.5 mg/dL 1.6-2.6 627) Academic Affairs Assistant ID Benjie BOSCH LCBC W/PLT COUNT & AUTO [id number] 06:36:00 Test Item Value Reference Range Interpretation [...] PERCENT (BEAKER) (test code = 2801) POCT-GLUCOSE [id number] 21:42:00 Test Item Value Reference Range Interpretation Comments POC-GLUCOSE METER 171 mg/dL 70-110 H : TESTED A T [facility] 6720 (BEAKER) (test code = [facility], [facility]8) 93657: Academic Affairs Assistant/Techni estefani ID = [id number] for DA VIS, KAVYA POCT-GLUCOSE [id number] 16:53:00 Test Item Value Reference Range Interpretation Comments POC-GLUCOSE METER 219 mg/dL 70-110 H : TESTED A T [facility] 6720 (BEAKER) (test code = [facility], 1538) 56743: Academic Affairs Assistant/Techni estefani ID = [id number] for OR PHEY, DALE POCT-GLUCOSE [id number] 12:15:00 Test Item Value Reference Range Interpretation Comments POC-GLUCOSE METER 181 mg/dL 70-110 H : TESTED A T [facility] 6720 (BEAKER) (test code = [facility], 1538) 43798: Academic Affairs Assistant/Techni estefani ID = [id number] for OR PHEY, DALE POCT-GLUCOSE [id number] 08:04:00 Test Item Value Reference Range Interpretation Comments POC-GLUCOSE METER 125 mg/dL 70-110 H : TESTED A T [facility] 6720 (BEAKER) (test code = [facility], 1538) 69059: Academic Affairs Assistant/Techni esetfani ID = [id number] for OR PHEY, DALE BASIC METABOLIC [id number] 05:56:00 Test Item Value Reference Range Interpretation [...] S NOT APPLICABLE FOR DIALYSIS PATIEN TS. Academic Affairs Assistant ID - DANITZA [id number] 05:16:00 Test Item Value Reference Range Interpretation Comments PHOSPHORUS (BEAKER) (test code = 5.7 mg/dL 2.3-4.7 H 604) Academic Affairs Assistant ID - DANITZA [id number] 05:16:00 Test Item Value Reference Range Interpretation Comments MAGNESIUM (BEAKER) (test code = 2.4 mg/dL 1.6-2.6 627) Academic Affairs Assistant ID - DANITZA LCBC W/PLT COUNT & AUTO [id number] 05:04:00 Test Item Value Reference Range Interpretation [...] PERCENT (BEAKER) (test code = 2801) POCT-GLUCOSE [id number] 21:56:00 Test Item Value Reference Range Interpretation Comments POC-GLUCOSE METER 182 mg/dL 70-110 H : TESTED A T [facility] 6720 (BEAKER) (test code = [facility], 1538) 38121: Academic Affairs Assistant/Techni estefani ID = [id number] for Cynthia Infante POCT-GLUCOSE [id number] 17:09:00 Test Item Value Reference Range Interpretation Comments POC-GLUCOSE METER 260 mg/dL 70-110 H : TESTED A T [facility] 6720 (BEAKER) (test code = [facility] [place], 1538) 26674: Academic Affairs Assistant/Techni estefani ID = [id number] for OR DALE URRUTIA POCT-GLUCOSE [id number] 12:02:00 Test Item Value Reference Range Interpretation Comments POC-GLUCOSE METER 244 mg/dL 70-110 H : TESTED A T [facility] 6720 (BEAKER) (test code = [facility] [place], 1538) 00626: Academic Affairs Assistant/Techni estefani ID = [id number] for OR DALE URRUTIA BASIC METABOLIC [id number] 08:22:00 Test Item Value Reference Range Interpretation [...] S NOT APPLICABLE FOR DIALYSIS PATIEN TS. Academic Affairs Assistant ID - [id number] 07:57:00 Test Item Value Reference Range Interpretation Comments PHOSPHORUS (BEAKER) (test code = 5.4 mg/dL 2.3-4.7 H 604) Academic Affairs Assistant ID - [id number] 07:57:00 Test Item Value Reference Range Interpretation Comments MAGNESIUM (BEAKER) (test code = 2.3 mg/dL 1.6-2.6 627) Academic Affairs Assistant ID - LMPOCT-GLUCOSE [id number] 07:55:00 Test Item Value Reference Range Interpretation Comments POC-GLUCOSE METER 154 mg/dL 70-110 H : TESTED A T [facility] 6720 (BEAKER) (test code = [facility] [place], 1538) 80697: Academic Affairs Assistant/Techni estefani ID = [id number] for OR DALE URRUTIA CBC W/PLT COUNT & AUTO [id number] 06:10:00 Test Item Value Reference Range Interpretation [...] (BEAKER) (test code = 2801) VANCOMYCIN LEVEL, [id number] 06:06:00 Test Item Value Reference Range Interpretation Comments VANCOMYCIN RANDOM (BEAKER) (test 15.8 ug/mL code = 523) Reference Range: No NormalsOperator ID - LMPOCT-GLUCOSE [id number] 21:02:00 Test Item Value Reference Range Interpretation Comments POC-GLUCOSE METER 231 mg/dL 70-110 H : TESTED A T [facility] 6720 (BEAKER) (test code = [facility], [facility]) 33013: Academic Affairs Assistant/Techni estefani ID = [id number] for PE WILESTEBAN, WESTLEY POCT-GLUCOSE [id number] 17:06:00 Test Item Value Reference Range Interpretation Comments POC-GLUCOSE METER 227 mg/dL 70-110 H : TESTED A T [facility] 6720 (BEAKER) (test code = [facility], 153) 99885: Academic Affairs Assistant/Techni estefani ID = [id number] for OR PHEY, DALE POCT-GLUCOSE [id number] 12:13:00 Test Item Value Reference Range Interpretation Comments POC-GLUCOSE METER 147 mg/dL 70-110 H : TESTED A T [facility] 6720 (BEAKER) (test code = [facility], 1538) 63869: Academic Affairs Assistant/Techni estefani ID = [id number] for OR PHEY, DALE POCT-GLUCOSE [id number] 11:39:00 Test Item Value Reference Range Interpretation Comments POC-GLUCOSE METER 138 mg/dL 70-110 H : TESTED A T [facility] 6720 (BEAKER) (test code = [facility], 1538) 79248: Academic Affairs Assistant/Techni estefani ID = [id number] for Izaiah Barber TISSUE [id number] 09:01:00Surgical Pathology Report Case: [id number] Authorizing Provider: Star Cloud DPM Collected: 06/19/2019 11:18 AM Ordering Location: [facility] Received: 06/19/2019 11:51 AM SERVICES Pathologist: Jonathan Hutchison MD Specimen: Foot, Right, right forefoot PART A RIGHT FOOT, TRANSMETATARSAL AMPUTATION:GANGRENOUS NECROSIS OF SKIN AND SOFT TISSUE.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 Signing Pathologist Direct Phone Line: [phone] signed by Jonathan Hutchison MD on 06/22/2019 at 9:01 [id number], [id number] diagnosis: Gangrene, nonhealing wound of right heelA. Right footReceived in formalin labeled with the patient's name, accession number and "right foot" is a 9.5 x 9.0 x 3.0 cm transmetatarsal amputation displaying digits 1, 4 and 5. The skin is gardner-pink and displays a 5.0 x 4.5 cm green-black ulcerated lesion at the previous site of amputation that is involving the entire 4th digit,and is abutting the skin and soft tissue margin (inked blue). The underlying affected bone is red-pink, trabeculated and firm. All three digits display gardner-yellow thickened nails. Wort Extractor sections are submitted as follows:Section code: A1, skin and soft tissue margin en faceA2, previous site ofamputationA3, skin lesion and underlying affected bone following decalcificationA4-A5, bone margin en face following decalcificationPA/pl PERFORMED.[facility], Department of Pathology, [address] [place] [address], [facility], [facility], [address] [place] [address], [facility], [facility], [address] [place] [address] 065[address], FRAH-GLUCOSE [id number] 08:12:00 Test Item Value Reference Range Interpretation Comments POC-GLUCOSE METER 123 mg/dL 70-110 H : TESTED A T [facility] 6720 (BEAKER) (test code = [facility], 1538) 06576: Academic Affairs Assistant/Techni estefani ID = [id number] for Izaiah Barber BASIC METABOLIC [id number] 06:52:00 Test Item Value Reference Range Interpretation [...] S NOT APPLICABLE FOR DIALYSIS PATIEN TS. Academic Affairs Assistant ID - BASSEM [id number] 06:51:00 Test Item Value Reference Range Interpretation Comments PHOSPHORUS (BEAKER) (test code = 6.3 mg/dL 2.3-4.7 H 604) Academic Affairs Assistant ID - BASSEM [id number] 06:51:00 Test Item Value Reference Range Interpretation Comments MAGNESIUM (BEAKER) (test code = 2.5 mg/dL 1.6-2.6 627) Academic Affairs Assistant ID - BASSEM WCBC W/PLT COUNT & AUTO [id number] 06:32:00 Test Item Value Reference Range Interpretation [...] (BEAKER) (test code = 2801) VANCOMYCIN LEVEL, [id number] 06:10:00 Test Item Value Reference Range Interpretation Comments VANCOMYCIN RANDOM (BEAKER) (test 19.5 ug/mL code = 523) Reference Range: No NormalsOperator ID - DBPOCT-GLUCOSE [id number] 21:39:00 Test Item Value Reference Range Interpretation Comments POC-GLUCOSE METER 212 mg/dL 70-110 H : TESTED A T [facility] 6720 (BEAKER) (test code = [facility], 1538) 87868: Academic Affairs Assistant/Techni estefani ID = [id number] for NOEMI EDMOND POCT-GLUCOSE [id number] 17:03:00 Test Item Value Reference Range Interpretation Comments POC-GLUCOSE METER 192 mg/dL 70-110 H : TESTED A T [facility] 6720 (BEAKER) (test code = [facility], 1538) 75190: Academic Affairs Assistant/Techni estefani ID = [id number] for HU NTER, ESTEFANYWITHA POCT-GLUCOSE [id number] 12:20:00 Test Item Value Reference Range Interpretation Comments POC-GLUCOSE METER 191 mg/dL 70-110 H : TESTED A T [facility] 6720 (BEAKER) (test code = [facility], 1538) 76188: Academic Affairs Assistant/Techni estefani ID = [id number] for CLAUDIA FONTANA SURGICALLY OBTAINED CULTURE + GRAM [id number] 11:27:00 Test Item Value Reference Range Interpretation Comments CULTURE (BEAKER) (test code No growth = 1095) GRAM STAIN RESULT (BEAKER) 3+ WBCs (test code = 1123) GRAM STAIN RESULT (BEAKER) No organisms seen (test code = 01431) SPIN/CONCENTRATION [id number] 08:46:00 Test Item Value Reference Range Interpretation Comments CONCENTRATION CHARGED (BEAKER) (test Done code = 2657) POCT-GLUCOSE [id number] 08:19:00 Test Item Value Reference Range Interpretation Comments POC-GLUCOSE METER 134 mg/dL 70-110 H : TESTED A T [facility] 6720 (BEAKER) (test code = [facility], 1538) 86402: Academic Affairs Assistant/Techni estefani ID = [id number] for HU NTER, HIWITHA BASIC METABOLIC [id number] 04:44:00 Test Item Value Reference Range Interpretation [...] S NOT APPLICABLE FOR DIALYSIS PATIEN TS. Academic Affairs Assistant ID - JAQUELINE [id number] 03:56:00 Test Item Value Reference Range Interpretation Comments PHOSPHORUS (BEAKER) (test code = 6.2 mg/dL 2.3-4.7 H 604) Academic Affairs Assistant ID - JAQUELINE [id number] 03:56:00 Test Item Value Reference Range Interpretation Comments MAGNESIUM (BEAKER) (test code = 2.3 mg/dL 1.6-2.6 627) Academic Affairs Assistant ID - JAQUELINE MCBC W/PLT COUNT & AUTO [id number] 03:44:00 Test Item Value Reference Range Interpretation [...] PERCENT (BEAKER) (test code = 2801) POCT-GLUCOSE [id number] 20:47:00 Test Item Value Reference Range Interpretation Comments POC-GLUCOSE METER 234 mg/dL 70-110 H : TESTED A T [facility] 6720 (BEAKER) (test code = [facility], 153) 03612: Academic Affairs Assistant/Techni estefani ID = [id number] for SALLY GLINOEMI Mejia POCT-GLUCOSE [id number] 17:12:00 Test Item Value Reference Range Interpretation Comments POC-GLUCOSE METER 192 mg/dL 70-110 H : TESTED A T [facility] 6720 (BEAKER) (test code = [facility], 1538) 21379: Academic Affairs Assistant/Techni estefani ID = [id number] for HU NTER, HIWITHA POCT-GLUCOSE [id number] 12:35:00 Test Item Value Reference Range Interpretation Comments POC-GLUCOSE METER 138 mg/dL 70-110 H : TESTED A T [facility] 6720 (BEAKER) (test code = [facility], 1538) 07408: Academic Affairs Assistant/Techni estefani ID = [id number] for ENOCH WILLSON, ESTEFANYWITHA POCT-GLUCOSE [id number] 10:12:00 Test Item Value Reference Range Interpretation Comments POC-GLUCOSE METER 101 mg/dL 70-110 : TESTED A T [facility] 6720 (BEAKER) (test code = [facility], 1538) 56601: Academic Affairs Assistant/Techni estefani ID = [id number] for Bassem Desai POCT-GLUCOSE [id number] 08:51:00 Test Item Value Reference Range Interpretation Comments POC-GLUCOSE METER 96 mg/dL 70-110 : TESTED A T [facility] 6720 (BEAKER) (test code = [facility], 1538) 40948: Academic Affairs Assistant/Techni estefani ID = [id number] for Alicia sBassem BASIC METABOLIC [id number] 05:04:00 Test Item Value Reference Range Interpretation [...] S NOT APPLICABLE FOR DIALYSIS PATIEN TS. Academic Affairs Assistant ID - DANITZA LVANCOMYCIN LEVEL, [id number] 04:56:00 Test Item Value Reference Range Interpretation Comments VANCOMYCIN RANDOM (BEAKER) (test 18.7 ug/mL code = 523) Reference Range: No NormalsOperator ID - DANITZA [id number] 04:49:00 Test Item Value Reference Range Interpretation Comments PHOSPHORUS (BEAKER) (test code = 8.4 mg/dL 2.3-4.7 H 604) Academic Affairs Assistant ID - DANITZA [id number] 04:49:00 Test Item Value Reference Range Interpretation Comments MAGNESIUM (BEAKER) (test code = 2.5 mg/dL 1.6-2.6 627) Academic Affairs Assistant ID - DANITZA LCBC W/PLT COUNT & AUTO [id number] 04:22:00 Test Item Value Reference Range Interpretation [...] code = 2801) RAD, FOOT, 2 VIEWS, [id number] 22:40:00Reason for exam:->post op TMA rightFINAL REPORT [...] Alex MDReport Verified Date/Time: 06/19/2019 22:40:02 POCT-GLUCOSE [id number] 21:19:00 Test Item Value Reference Range Interpretation Comments POC-GLUCOSE METER 221 mg/dL 70-110 H : TESTED Vikas Tai [facility] 6720 (BEAKER) (test code = D[place] Jose [place], 1538) 65669: Academic Affairs Assistant/Techni estefani ID = [id number] for BRAYDEN SAM KAVYA POCT-GLUCOSE [id number] 21:06:00 Test Item Value Reference Range Interpretation Comments POC-GLUCOSE METER 214 mg/dL 70-110 H : TESTED A T [facility] 6720 (BEAKER) (test code = [facility], 1538) 80348: Academic Affairs Assistant/Techni estefani ID = [id number] for BRANDI BOONE, BLESSING POCT-GLUCOSE [id number] 21:05:00 Test Item Value Reference Range Interpretation Comments POC-GLUCOSE METER 131 mg/dL 70-110 H : TESTED A T [facility] 6720 (BEAKER) (test code = [facility], 1538) 61603: Academic Affairs Assistant/Techni estefani ID = [id number] for BRANDI HN, BLESSING POCT-GLUCOSE [id number] 21:05:00 Test Item Value Reference Range Interpretation Comments POC-GLUCOSE METER 131 mg/dL 70-110 H : TESTED A T [facility] 6720 (BEAKER) (test code = [facility], [facility]8) 95666: Academic Affairs Assistant/Techni estefani ID = [id number] for BRANDI BOONE, BLESSING POCT-GLUCOSE [id number] 12:01:00 Test Item Value Reference Range Interpretation Comments POC-GLUCOSE METER 135 mg/dL 70-110 H : TESTED A T [facility] 6720 (BEAKER) (test code = [facility], 1538) 27664: Academic Affairs Assistant/Techni estefani ID = [id number] for GABRIELA OLMSTEAD POCT-GLUCOSE [id number] 09:10:00 Test Item Value Reference Range Interpretation Comments POC-GLUCOSE METER 200 mg/dL 70-110 H : TESTED A T [facility] 6720 (BEAKER) (test code = [facility], [facility]8) 67003: Academic Affairs Assistant/Techni estefani ID = [id number] for FRANCK SKELTON CBC W/PLT COUNT & AUTO [id number] 05:34:00 Test Item Value Reference Range Interpretation [...] (BEAKER) (test code = 2801) BASIC METABOLIC [id number] 05:28:00 Test Item Value Reference Range Interpretation [...] S NOT APPLICABLE FOR DIALYSIS PATIEN TS. Academic Affairs Assistant ID Benjie LUEVANO [id number] 05:27:00 Test Item Value Reference Range Interpretation Comments PHOSPHORUS (BEAKER) (test code = 6.7 mg/dL 2.3-4.7 H 604) Academic Affairs Assistant ID - BASSEM [id number] 05:27:00 Test Item Value Reference Range Interpretation Comments MAGNESIUM (BEAKER) (test code = 2.3 mg/dL 1.6-2.6 627) Academic Affairs Assistant ID - BASSEM WVANCOMYCIN LEVEL, [id number] 05:25:00 Test Item Value Reference Range Interpretation Comments VANCOMYCIN RANDOM (BEAKER) (test 21.5 ug/mL code = 523) Reference Range: No NormalsOperator ID Benjie LUEVANO WPOCT-GLUCOSE [id number] 17:28:00 Test Item Value Reference Range Interpretation Comments POC-GLUCOSE METER 173 mg/dL 70-110 H : TESTED A T [facility] 6720 (BEAKER) (test code = [facility], 1538) 77899: Academic Affairs Assistant/Techni estefani ID = [id number] for OR DALE URRUTIA POCT-GLUCOSE [id number] 14:19:00 Test Item Value Reference Range Interpretation Comments POC-GLUCOSE METER 133 mg/dL 70-110 H : TESTED A T [facility] 6720 (BEAKER) (test code = [facility], 1538) 85750: Academic Affairs Assistant/Techni estefani ID = [id number] for OR DALE URRUTIA POCT-GLUCOSE [id number] 10:35:00 Test Item Value Reference Range Interpretation Comments POC-GLUCOSE METER 119 mg/dL 70-110 H : TESTED A T [facility] 6720 (BEAKER) (test code = [place], 1538) 85490: Academic Affairs Assistant/Techni estefani ID = [id number] for Sonya Christian CBC W/PLT COUNT & AUTO [id number] 05:31:00 Test Item Value Reference Range Interpretation [...] (BEAKER) (test code = 2801) BASIC METABOLIC [id number] 05:17:00 Test Item Value Reference Range Interpretation [...] S NOT APPLICABLE FOR DIALYSIS PATIEN TS. Academic Affairs Assistant ID - JAQUELINE [id number] 05:16:00 Test Item Value Reference Range Interpretation Comments PHOSPHORUS (BEAKER) (test code = 7.5 mg/dL 2.3-4.7 H 604) Academic Affairs Assistant ID - JAQUELINE [id number] 05:16:00 Test Item Value Reference Range Interpretation Comments MAGNESIUM (BEAKER) (test code = 2.4 mg/dL 1.6-2.6 627) Academic Affairs Assistant ID - JAQUELINE MVANCOMYCIN LEVEL, [id number] 05:04:00 Test Item Value Reference Range Interpretation Comments VANCOMYCIN TROUGH (BEAKER) (test 25.9 ug/mL 10.0-20.0 H code = 522) Academic Affairs Assistant ID - JAQUELINE MPOCT-GLUCOSE [id number] 21:00:00 Test Item Value Reference Range Interpretation Comments POC-GLUCOSE METER 148 mg/dL 70-110 H : TESTED A T [facility] 6720 (BEAKER) (test code = [facility], 1538) 82290: Academic Affairs Assistant/Techni estefani ID = [id number] for SERENA RANKIN POCT-GLUCOSE [id number] 19:14:00 Test Item Value Reference Range Interpretation Comments POC-GLUCOSE METER 137 mg/dL 70-110 H : TESTED A T [facility] 6720 (BEAKER) (test code = [facility], 1538) 68463: Academic Affairs Assistant/Techni estefani ID = [id number] for AMANDA BETTS POCT-GLUCOSE [id number] 17:46:00 Test Item Value Reference Range Interpretation Comments POC-GLUCOSE METER 205 mg/dL 70-110 H : TESTED A T [facility] 6720 (BEAKER) (test code = [facility], 1538) 66498: Academic Affairs Assistant/Techni estefani ID = [id number] for AMANDA BETTS POCT-GLUCOSE [id number] 17:05:00 Test Item Value Reference Range Interpretation Comments POC-GLUCOSE METER 197 mg/dL 70-110 H : TESTED A T [facility] 6720 (BEAKER) (test code = [facility], 1538) 08478: Academic Affairs Assistant/Techni estefani ID = [id number] for AMANDA BETTS BASIC METABOLIC [id number] 05:57:00 Test Item Value Reference Range Interpretation [...] S NOT APPLICABLE FOR DIALYSIS PATIEN TS. Academic Affairs Assistant ID - DANITZA [id number] 05:54:00 Test Item Value Reference Range Interpretation Comments PHOSPHORUS (BEAKER) (test code = 6.2 mg/dL 2.3-4.7 H 604) Academic Affairs Assistant ID - DANITZA [id number] 05:54:00 Test Item Value Reference Range Interpretation Comments MAGNESIUM (BEAKER) (test code = 2.2 mg/dL 1.6-2.6 627) Academic Affairs Assistant ID - DANITZA LCBC W/PLT COUNT & AUTO [id number] 05:44:00 Test Item Value Reference Range Interpretation [...] PERCENT (BEAKER) (test code = 2801) POCT-GLUCOSE [id number] 21:37:00 Test Item Value Reference Range Interpretation Comments POC-GLUCOSE METER 262 mg/dL 70-110 H : TESTED A T [facility] 6720 (BEAKER) (test code = [facility], [facility]) 69251: Academic Affairs Assistant/Techni estefani ID = [id number] for KEIRY WHITMOREO POCT-GLUCOSE [id number] 16:44:00 Test Item Value Reference Range Interpretation Comments POC-GLUCOSE METER 203 mg/dL 70-110 H : TESTED A T [facility] 6720 (BEAKER) (test code = [facility], 1538) 36622: Academic Affairs Assistant/Techni estefani ID = [id number] for NATE MONROY POCT-GLUCOSE [id number] 12:05:00 Test Item Value Reference Range Interpretation Comments POC-GLUCOSE METER 233 mg/dL 70-110 H : TESTED A T [facility] 6720 (BEAKER) (test code = [facility], 1538) 73937: Academic Affairs Assistant/Techni estefani ID = [id number] for ZOILA SILVA POCT-GLUCOSE [id number] 08:18:00 Test Item Value Reference Range Interpretation Comments POC-GLUCOSE METER 146 mg/dL 70-110 H : TESTED A T [facility] 6720 (BEAKER) (test code = DASIA Flannery [facility], 1538) 62236: Academic Affairs Assistant/Techni estefani ID = [id number] for ENOCH NTER, ESTEFANYWITHA CBC W/PLT COUNT & AUTO [id number] 07:32:00 Test Item Value Reference Range Interpretation [...] CONCENTRATION Adequate (CELLAVISION)(BEAKER) (test code = 3438) Academic Affairs Assistant ID - Daily OverholtUser comments: Slide comments:BASIC [...] S NOT APPLICABLE FOR DIALYSIS PATIEN TS. Academic Affairs Assistant ID - JAQUELINE [id number] 06:29:00 Test Item Value Reference Range Interpretation Comments PHOSPHORUS (BEAKER) (test code = 4.9 mg/dL 2.3-4.7 H 604) Academic Affairs Assistant ID - JAQUELINE [id number] 06:29:00 Test Item Value Reference Range Interpretation Comments MAGNESIUM (BEAKER) (test code = 2.2 mg/dL 1.6-2.6 627) Academic Affairs Assistant ID - JAQUELINE MVANCOMYCIN LEVEL, [id number] 06:23:00 Test Item Value Reference Range Interpretation Comments VANCOMYCIN RANDOM (BEAKER) (test 31.1 ug/mL code = 523) Reference Range: No NormalsOperator ID - JAQUELINE MPOCT-GLUCOSE [id number] 21:18:00 Test Item Value Reference Range Interpretation Comments POC-GLUCOSE METER 233 mg/dL 70-110 H : TESTED A T [facility] 6720 (BEAKER) (test code = [facility], 153) 33399: Academic Affairs Assistant/Techni estefani ID = [id number] for DA VISEDMARKAVYA POCT-GLUCOSE [id number] 17:24:00 Test Item Value Reference Range Interpretation Comments POC-GLUCOSE METER 252 mg/dL 70-110 H : TESTED A T [facility] 6720 (BEAKER) (test code = [facility], 1538) 17472: Academic Affairs Assistant/Techni estefani ID = [id number] for HU NTER, HIWITHA POCT-GLUCOSE [id number] 17:24:00 Test Item Value Reference Range Interpretation Comments POC-GLUCOSE METER 124 mg/dL 70-110 H : [facility] ([facility] (test code = [facility], 1538) 52580: Academic Affairs Assistant/Techni estefani ID = [id number] for ZOILA SILVA [id number] 12:41:00 Test Item Value Reference Range Interpretation Comments ACTIVATED CLOTTING TIME 241 sec : 74 -137 seconds, (BEAKER) (test code = Amadeo ne: TESTED AT 441) [facility], 770 30: Academic Affairs Assistant/Techni estefani ID = [id number] for CRYSTAL SHAH HEPATITIS B SURFACE [id number] 04:57:00 Test Item Value Reference Range Interpretation Comments HEPATITIS B SURFACE ANTIGEN (2) Nonreactive Nonreactive (BEAKER) (test code = 2585) Academic Affairs Assistant ID - LMBASIC METABOLIC [id number] 04:38:00 Test Item Value Reference Range Interpretation [...] S NOT APPLICABLE FOR DIALYSIS PATIEN TS. Academic Affairs Assistant ID - BASSEM [id number] 04:37:00 Test Item Value Reference Range Interpretation Comments PHOSPHORUS (BEAKER) (test code = 5.6 mg/dL 2.3-4.7 H 604) Academic Affairs Assistant ID - BASSEM [id number] 04:37:00 Test Item Value Reference Range Interpretation Comments MAGNESIUM (BEAKER) (test code = 2.2 mg/dL 1.6-2.6 627) Academic Affairs Assistant ID - BASSEM WCBC W/PLT COUNT & AUTO [id number] 04:34:00 Test Item Value Reference Range Interpretation [...] PERCENT (BEAKER) (test code = 2801) POCT-GLUCOSE [id number] 22:31:00 Test Item Value Reference Range Interpretation Comments POC-GLUCOSE METER 203 mg/dL 70-110 H : TESTED A T [facility] 6720 (BEAKER) (test code [facility], = 1538) 77495: Academic Affairs Assistant/Techni estefani ID = [id number] for Emma Leyva POCT-GLUCOSE [id number] 21:30:00 Test Item Value Reference Range Interpretation Comments POC-GLUCOSE METER 205 mg/dL 70-110 H : TESTED A T [facility] 6720 (BEAKER) (test code = [facility], 1538) 42018: Academic Affairs Assistant/Techni estefani ID = [id number] for ARLEN ADAN POCT-GLUCOSE [id number] 16:56:00 Test Item Value Reference Range Interpretation Comments POC-GLUCOSE METER 210 mg/dL 70-110 H : TESTED A T [facility] 6720 (BEAKER) (test code = [facility], 1538) 07762: Academic Affairs Assistant/Techni estefani ID = [id number] for MATEUS ROBLES RAD, FOOT, MIN 3 VIEWS, [id number] 15:36:00Reason for exam:->Right foot gangrene, 2nd toe [...] digit amputations. Signed: Sonny Perezeport Verified Date/Time: 0 06/14/2019 15:36:18 Reading Location: [place] [id number] Ortho Consult Reading Room BASIC METABOLIC [id number] 15:34:00 Test Item Value Reference Range Interpretation [...] S NOT APPLICABLE FOR DIALYSIS PATIEN TS. Academic Affairs Assistant ID - [id number] 15:33:00 Test Item Value Reference Range Interpretation Comments PHOSPHORUS (BEAKER) (test code = 4.8 mg/dL 2.3-4.7 H 604) Academic Affairs Assistant ID - [id number] 15:33:00 Test Item Value Reference Range Interpretation Comments MAGNESIUM (BEAKER) (test code = 2.2 mg/dL 1.6-2.6 627) Academic Affairs Assistant ID - BSCBC W/PLT COUNT & AUTO [id number] 15:20:00 Test Item Value Reference Range Interpretation [...] PERCENT (BEAKER) (test code = 2801) POCT-GLUCOSE [id number] 12:22:00 Test Item Value Reference Range Interpretation Comments POC-GLUCOSE METER 242 mg/dL 70-110 H : TESTED A [place] [facility] 6720 (BEAKER) (test code = [facility] [place], 1538) 09356: Academic Affairs Assistant/Techni estefani ID = [id number] for MATEUS ROBLES POCT-GLUCOSE [id number] 12:16:00 Test Item Value Reference Range Interpretation Comments POC-GLUCOSE METER 206 mg/dL 70-110 H : TESTED A T [facility] 6720 (NOE) (test code = [facility] [place], 1538) 73198: Academic Affairs Assistant/Techni estefani ID = [id number] for MATEUS ROBLES Notes Date/Time Note Provider Source 2021-03-13 19:21:27-00:00 ST[facility]D [facility] OPERATIVE/PROCEDURE REPORT [place] [facility] FACILITY: [facility] Billing #: [id number] Room: [address] [place] [address] MR #: [id number] : 1960 DATE OF PROCEDURE: 03/12/2021 SURGEON: Star Cloud DPM The patient of Dr. Star Cloud and Dr. Clark east PREOPERATIVE DIAGNOSES: 1. Nonhealing wounds, posterior heel and Simone s, right foot (5 cm x 3 cm). 2. Nonhealing post transmetatarsal amputation wo und, anterior aspect of the right foot (6 cm x 5 cm). POSTOPERATIVE DIAGNOSIS: 1. Nonhealing wounds, posterior heel and Mannford s, right foot (5 cm x 3 cm). 2. Nonhealing post transmetatarsal amputation wo und, anterior aspect of the right foot (6 cm x 5 cm). OPERATIONS PERFORMED: 1. Debridement of right posterior heel and Achil les tendon region wound, right foot (5 cm x 3 cm) (Dr. Cloud ). 2. Debridement of nonhealing post transmetatarsa l amputation wound, anterior aspect of the right foot (6 cm x 5 cm) (Dr. Cloud). 3. Harvesting of split-thickness skin graft from the right thigh (Dr. Danielle). 4. Application of split-thickness skin graft to the right foot, anterior and posterior wound sites (Dr. Danielle an d Dr. Cloud). 5. Last application of negative pressure wound V AC to the right foot (Dr. Cloud). SECOND SURGEON: Clark Danielle M.D. FAMILY PRACTITIONER: 1. Aby De Oliveira M.D., PGY-2. 2. Didier Gary, M.D., PGY-2. HISTORY: This 60-year-old male patient was first identified at the operating room due to contact isolation. His right foot was identified and marked. Consent was reviewed and agreed upon and signed. Procedures risks, followup, and complications were described in great detail and all questions were answered. INDICATIONS FOR SURGERY: Previous post TMA with bone resection both anteriorly and the loose bone body fragment off the calcaneus also had been previously excised. Woun ds were now improved. Good granulation tissue bed seen both posteriorly and anteriorly with good fibro-granulation tissu e present, now ready for split-thickness skin grafting. DESCRIPTION OF PROCEDURE: The patient was placed on the operating table in supine position, at which nahum e IV sedation was induced. Time-out was first performed. The r ight foot was identified as marked. Consent was reviewed and a greed upon as signed. All were in concurrence with the time-ou t. Local anesthetic Xylocaine 1% plain and Marcaine 0.5% plain infiltrated locally to the right foot. A total o f 20 mL to the right foot, 10 mL to the right thigh by Dr. Avtar jaime. Sterile Betadine scrub and paint performed. Sterile drap ing was then performed. Attention was first directed to the posterior as pect of the right heel and Achilles tendon region, where thi s post debridement wound and ulcer measuring approximat olga 5 cm x 3 cm was identified and sharply debrided with #15 alexandria de, hyperkeratotic tissue was debrided, fibrous tiss ue also debrided as well as portions of the superficial Achilles tendon. After extensive excisional debridement w as accomplished of the wound, introduction of the V ersajet was also utilized for further debridement of this wo und. Good bleeding was observed. The excessive granulation tissue was debrided, again good bleeding was observed, all biofilms were removed from the wound bed. Attention was now di rected to the post transmetatarsal amputation wound of the ant erior aspect of the right foot, where good granulation tissue ag ain was observed covering all bony surfaces. There was o ne small spicule, which had been seen and was removed wit h the rongeur. Debridement of the wound excised hypertrophic gr anulation tissue, hyperkeratotic tissue around the support ing periphery of the transmetatarsal amputation wound and then introduction of the Versajet for further debridement. Good bl eeding was observed. All granulation tissue was debrided do wn to good healthy base. Cautery was utilized for hemostasi s. The wound was then copiously irrigated with sterile saline solution, 1 L of fluid saline was utilized. A split-thickness skin graft was harvested from the right thigh by Dr. Danielle and then transferred to the right forefoot and a portion utilized for the right heel and Achilles tendon region. The s plit-thickness skin graft was then sutured in place with 4-0 si mple interrupted chromic suture. After the split-thic kness skin graft was placed utilizing Adaptic with a medium -sized sponge with adapter and bridge for the posterior and an terior aspect of the right foot. A negative pressure wound VAC was then applied set at 120 mmHg, no leaks and good sucti on was observed. Webril was then applied with a light A ce wrap to the right foot. The patient tolerated the procedures , local anesthesia, and the IV sedation well and left th e operating room in an apparent satisfactory condition with vital signs stable. Transferred to the PACU unit with vital signs stable. Sponge count and needle count were correct. The estimated blood loss was approximately 30 mL. JAR/MODL /[id number] 2021-03-12 15:02:43-00:00 [facility] OPERATIVE/PROCEDURE REPORT [place] FACILITY: [facility] Billing #: [id number] Room: [facility] MR #: [id number] : 1960 DATE OF PROCEDURE: 03/12/2021 SURGEON: Star Cloud DPM The patient of Dr. Star Cloud and Dr. Clark east PREOPERATIVE DIAGNOSES: 1. Nonhealing wounds, posterior heel and Simone s of the right foot and ankle, (5 cm x 3 cm). 2. Nonhealing post transmetatarsal amputation wo und, anterior aspect of the right foot (6 cm x 5 cm). POSTOPERATIVE DIAGNOSES: 1. Nonhealing wounds, posterior heel and Mannford s of the right foot and ankle, (5 cm x 3 cm). 2. Nonhealing post transmetatarsal amputation wo und, anterior aspect of the right foot (6 cm x 5 cm). PERATION PERFORMED: 1. Debridement of posterior heel wound/Achilles tendon, right foot and ankle (5 cm x 3 cm). 2. Debridement of nonhealing post transmetatarsa l amputation wound of the anterior aspect of the right foot ( 6 cm x 5 cm) (Dr. Cloud). 3. Heflin split-thickness skin graft from the r ight thigh (Dr. Danielle). 4. Application of split-thickness skin graft to the right foot, anterior and posterior wound sites (Dr. Danielle an d Dr. Cloud). 5. Application of negative pressure wound VAC of the right foot (Dr. Cloud). CO-SURGEON: Clark Danielle M.D. ASSISTANTS: 1. Aby De Oliveira M.D., PGY-2. 2. Didier Tello M.D., PGY-2. INDICATIONS: This 60-year-old male patient was f irst identified at the operating room due to contact isolation on 03/12/2021, in an apparent satisfactory conditio n to undergo corrective surgery for post transmetatarsal ampu tation wound, previous debridements of both the anterior and p osterior wound sites with having had loose bone fragments excis ed. Now, the wounds were much quill cleaner with good granulation t issue present, no infection present and in need of further debr idement with application of split-thickness skin graft. The p atient was identified, the right foot was marked as indicat ed. Consent was reviewed and agreed upon and signed. Procedu res risks, followup, and complications were described in gr eat detail and all questions were answered. INDICATIONS FOR SURGERY: Again, previous transme tatarsal amputation wound anteriorly with bone fragments removed on the last occasion as well as posterior wound with Ac hilles tendon exposure, also with bone fragment having been re moved, now ready for split-thickness skin grafting. The pat ient was placed on the operating table in a supine positi on, at which time IV sedation was induced. Time-out was first performed. The right foot and right thigh were identified b oth by Dr. Cloud and Dr. Danielle. After identification of the right foot and right thigh, consent was reviewed and agreed upo n as signed. All were in concurrence with the time-out. Local anesthetic, Xylocaine 1% plain and Marcaine 0.5% plain infil trated locally anterior tibial nerve block, posterior tibial, p osterior ankle block, and regional nerve block to the right clifton t 20 mL was utilized and Dr. Danielle injected the right thigh with 10 mL of the Xylocaine and Marcaine combination being use d. Sterile Betadine scrub and paint performed. Sterile drap ing was then performed. Attention was first directed to the posterior as pect of the right heel and Achilles tendon, where excisional debridement was performed on that wound, measuring approxima tely 5 cm x 3 cm. The Achilles tendon was debrided as was the posterior wound site at the attachment to the calcaneus. A fter excisional debridement was performed, the Versaj et was introduced into the wound and further debridemen t was accomplished. Again, this wound measured approxi mately 5 cm x 3 cm. Attention was now directed to the anterior aspect of the post transmetatarsal amputation wound of the ant erior aspect of the right foot. This wound showed good granulati on tissue, did not show any signs of infection. Good viable tis hina was observed and ready for both debridement and appl ication of the split-thickness skin graft. A small fragment of bone was removed with the rongeur. Extensive excisional d ebridement performed both with #15 blade, curette, and then with the use of the Versajet. After debridement was accomplis hed, all wound sites were then cleaned. There was a small area both anterior medially, which was also debrided. After debride ment was accomplished, the wound was then copiously irrig ated with 1 L of sterile saline solution. Dr. Danielle then addre ssed the right thigh, where a split-thickness skin graft was mims rvested from the right thigh and transferred to the right clifton t. A portion to the anterior aspect of the post transmetatars al amputation site and a portion to the posterior aspect of th e calcaneus and Achilles. Those wounds again measuring approxima tely 5 cm x 3 cm posteriorly, 6 cm x 5 cm anteriorly. A split- thickness skin graft was then sutured in place with 4-0 simple interrupted chromic suture. All wound sites were now covered completely, that small area medially, anteriorly was also co jahaira with the split-thickness skin graft portion. After all ar eas were covered completely, a negative pressure wound VA C was then applied first with Adaptic, then the sponge was applied to the posterior aspect and the anterior aspect and wit h a bridge between the two sites set at 120 mmHg. Good suct ion was observed and no leaks were observed. Webril was then applied with Efrem wrap. The patient tolerated the procedu res, local anesthesia, and the IV sedation well, left the o perating room in an apparent satisfactory condition with vital signs stable, transferred to the PACU unit with vital signs st able. Sponge count and needle count were correct. The estimat ed blood loss was less than 20 mL. JAR/MODL /[id number] 2021-03-02 20:39:53-00:00 [facility] OPERATIVE/PROCEDURE REPORT [place] [facility] FACILITY: [facility] Billing #: [id number] Room: [address] [place] [address] MR #: [id number] : 1960 DATE OF PROCEDURE: 03/02/2021 SURGEON: Star Cloud DPM The patient of Star Cloud DPM, MD and Nithin Danielle MD LOCATION: [facility]. PREOPERATIVE DIAGNOSES: 1. Nonhealing post transmetatarsal amputation st ump wound anterior with bone exposure x2 sites, right foot . 2. 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 POSTOPERATIVE DIAGNOSES: 1. Nonhealing post transmetatarsal amputation st ump wound anterior with bone exposure x2 sites, right foot . 2. Nonhealing posterior stage IV diabetic ulcer wound with osteomyelitis loose calcaneus bone fragment, and exposed Achilles tendon, right foot. OPERATION PERFORMED: 1. Excisional debridement of nonhealing post tra nsmetatarsal amputation stump wound, anterior aspect, right f oot. 2. Resection of loose bone fragments x2, anterio r site and remodel medial site, right foot. 3. Excisional debridement of nonhealing posterio r stage IV diabetic ulcer wound. 4. Resection of osteomyelitis loose calcaneus hector ne fragment. 5. Debridement of exposed Achilles tendon, right . 6. Packing of wounds with 0.25% Dakin solution. 7. Versajet, pulse lavage irrigation, 5 mL of Fl oSeal. FAMILY PRACTITIONER: Dawood Hagan DPM, second-year Podiatr y resident. HISTORY: This 60-year-old male patient was first identified at the operating room due to contact isolation on 05/03/2020, in apparent satisfactory condition to undergo corre ctive surgery for nonhealing anterior wound with loose bone fr agments of the post transmetatarsal amputation site as well as posterior ulceration wound with eschar and loose bone body fragment of the calcaneus of the right foot. The patient was identified, the right foot was marked as indicated. Consent was reviewed and agreed upon and signed. Procedures risks, fo llowup, and complications were described in great detail and all questions were answered. Indications for surgery as stated possible osteomyelitis, nonhealing wound, anterior aspect of the right foot with two bone fragments present, exposed hector ne medially aspect of the post transmetatarsal amputation si te and posterior ulceration nonhealing with loose possi ble osteomyelitis bone fragment of the calcaneus wit h exposed Achilles tendon of the right foot. In need of de bridement and bone resection revision. The patient was placed on the operating table in supine position, at which nahum e, IV sedation was induced. The patient was on regularly schedu led IV antibiotics. Time-out was first performed. The r ight foot was identified as marked. Consent was reviewed and a greed upon as signed. All were in concurrence with the time-ou t. Local anestheticXylocaine 1% plain and Marcaine 0.5% p ngozi infiltrated locally to his right foot. A total o f 25 mL was utilized. Sterile Betadine scrub and paint perfo rmed. Sterile draping was then performed. No tourniquet was ut ilized. DESCRIPTION OF PROCEDURE: Attention was directed to the distal aspect of the post transmetatarsal amputation wo und site of the right foot where first a large bone body fragmen t was observed. Careful meticulous dissection was carried out. This fragment was excised and sent to Pathology for culture an d sensitivity. At that time, aerobic and anaerobic cultures wer e obtained both anteriorly and to the posterior wound as well, s ent to Pathology for culture and sensitivity. A 2nd bon e fragment was also observed superiorly. Careful meticulous dis section was carried out and that bone fragment was also exci sed and sent to Pathology for gross identification to Pathology. Refinement of the bone anteriorly was also performed with the bone saw and the bone olman. Medially, exposed bone of the pos t transmetatarsal amputation site was also observe d and was resected and remodeled with the [employer] oscillat ing bone olman. After remodeling of both the anterior and tono medial sites, attention was now directed to the posterior woun d site of the stage IV ulceration measuring approximately 4 cm in length by approximately 2-3 cm in width. A loose bone body fragment of the calcaneus was observed. On x-ray, it appeare d to be an osteomyelitic bone and that had fractured off th e posterior aspect of the calcaneus and was lying in soft tissue and A chilles tendon. The bone fragment was carefully, meticulously d issected free, excised and sent to Pathology for gross examinat ion and identification. Further excisional debridement w as performed of both the eschar and exposed Achilles tendon. A Versajet was utilized for both the anterior wound site as wel l as this posterior wound and ulceration site as well. The Versajet was also utilized over the Achilles tendon exposure. With the wound much quill cleaner, the wound was then copiously irrigated with pulse lavage irrigation, 3 L of saline with anti biotic, 5 mL of FloSeal was utilized with cautery for hemostasis purposes. Hemostasis was accomplished of all wound sites. After irrigation and with hemostasis now being accompl ished, the wound sites were then packed with 0.25% Dakin so lution 4x4s, additional 4x4s, ABD pads, Webril, and an Efrem wr ap for compression. The patient tolerated the procedure s, local anesthesia, and the IV sedation well, left the o perating room in apparent satisfactory condition with vital si gns stable. The estimated blood losswas approximately 100 mL . Sponge count and needle count were correct. The patient was t ransferred to the PACU unit with vital signs stable. JAR/MODL /[id number] 2020-09-25 21:19:32-00:00 ST[facility] OPERATIVE/PROCEDURE REPORT [place] [facility] FACILITY: [facility] [id number] Room: [facility] 210 MR #: [id number] : 1960 DATE OF PROCEDURE: 09/23/2020 SURGEON: Star Cloud DPM Patient of Dr. Star Cloud DPM and Dr. Clark Danielle MD. LOCATION: [facility]. PREOPERATIVE DIAGNOSES: 1. Nonhealing ulcer of the right heel (5 cm x 5 cm). 2. Nonhealing ulcer wound post transmetatarsal a mputation with exposed metatarsal stumps of the right foot (5 c m x 5 cm). POSTOPERATIVE DIAGNOSES: 1. Nonhealing ulcer of the right heel (5 cm x 5 cm). 2. Nonhealing ulcer wound post transmetatarsal a mputation with exposed metatarsal stumps of the right foot (5 c m x 5 cm). OPERATION PERFORMED: 1. Excisional debridement with revision of nonhe aling ulcer of the right heel (5 cm x 5 cm) with application of DermACELL acellular dermal matrix. 2. Incisional debridement with revision of nonhe aling ulcer wound post transmetatarsal amputation with resec tion of exposed metatarsal stumps of the right foot (5 cm x 5 cm ) with application of DermACELL acellular dermal matrix skin substitute for both the right. 3. Pulse lavage irrigation, Versajet, 5 mL of Fl oSeal, 5 g of Cellerate powder. INDICATIONS FOR PROCEDURE: Nonhealing right heel ulcer after repeated debridements and application of matrix and split-thickness skin graft and also transmetatar ari amputation wound. Also, previous multiple debridements, bon e resection, application of matrix and split-thickness skin g raft and need of revision for breakdown, previous infection an d now for debridement remodeling of the bone stumps and ap plication of the matrix. The patient was brought to the opera ting room, placed on the operating table in supine position after having been identified. Consent was reviewed and agreed upon and signed. Procedures risks, followup, and complica tions were described in great detail and all questions were answered. The patient was placed on the operati ng table in supine position, at which time IV sedation was i nduced. Antibiotics were already previously being given on a routine schedule. Time-out was first performed. The [facility] t foot was identified as marked. Consent was reviewed and a greed upon as signed. All were concurrence with the time-out. Local anesthetic Xylocaine 1% plain and Marcaine 0.5% plain infiltrated locally to the right foot. A total o f 20 mL was utilized. Sterile Betadine scrub and paint perfo rmed. Sterile draping was then performed. PROCEDURE IN DETAIL: Attention was first directe d to the right heel nonhealing ulcer, which had previously been debrided due to abscess and infection. The wound was much roberto aner and was beginning to show granulation tissue after havin g been treated with Dakin solution dressings. With the wound mu ch quill cleaner excisional debridement was performed. Sharp debr idement of all necrotic tissue, devitalized tissue performed hector th on the wound edges as well as the central region of the wound , which measured approximately 5 cm x 5 cm. The use of t he Versajet was introduced to the wound where further debrid ement was accomplished both of granulation tissue area, th e wound edges and deep to the medial central area of the wound . This is where the previous abscess had been located. Thi s wound was now much quill cleaner, after debridement was accompli shed good bleeding was observed. Half of the FloSeal 5 mL was utilized and cautery was utilized. Attention was now dire cted to the forefoot region post transmetatarsal amputation of the right foot wound measuring 5 cm x 5 cm where excisiona l debridement was performed of all nonviable tissue and there appeared to be at the bases of the metatarsal stumps centrally and laterally in need of resection. Utilizing a [place] sagitt al bone saw, resection of these bone stumps was performed smo othing, contouring, remodeling also performed with the b one saw. No roughened edges were noted. No prominence of the metatarsal stumps seen at this time. Again, all granulation tissue overlying those bone stumps was excised. A Versa jet was introduced to the wound where further debridemen t was accomplished. Good bleeding was observed again. The remaining portion of the FloSeal was utilized of the 5 mL. The wound was then copiously irrigated with pulse lavage irrig ation 3 L of saline with antibiotic solution of vancomycin. A fter irrigation was performed with hemostasis accompl ished with cautery and the FloSeal, both wound sites, both the heel and the forefoot were then covered with a DermACELL acellular dermal matrix skin substitute, both of the foref oot and heel then sutured in place with a 4-0 simple interrup doris nylon suture. A 4 x 4 matrix utilized for the heel and a 9 x 5 cm matrix of the forefoot. After complete coverage of both wound areas due to bleeding, it was deemed not appropr iate for wound VAC at this particular time. Therefore compressi on dressing was applied first with Adaptic, then saline 4x4s with antibiotic solution, additional 4x4s, ABD pad, W ebril, Kerlix and an Efrem wrap to the right foot. The patient t olerated the procedures, local anesthesia, and IV sedation we ll and left the operating room in apparent satisfactory conditio n with vital signs stable and hemostasis accomplished. Sponge count and needle count were correct. Estimated blood lossw as approximately 100 mL. The patient was transferre d to the PACU unit with vital signs stable. JAR/MODL /[id number] 2020-09-20 15:23:25-00:00 ST[facility] OPER[facility]/PROCEDURE REPORT [place] [facility] FACILITY: [facility] Billing #: [id number] Room: [address] [place] [address] MR #: [id number] : 1960 DATE OF PROCEDURE: 09/20/2020 SURGEON: Star Cloud DPM Patient of Dr. Star Cloud DPM and Dr. Clark Danielle MD. LOCATION: At [facility]. PREOPERATIVE DIAGNOSES: 1. Abscess of the right heel. 2. Infected nonhealing stage IV ulcer of the kodak l (5 cm x 4 cm). 3. Infected nonhealing stage IV ulcer of the for efoot with bone exposure and eschar of the right foot (5 cm x 4 cm). POSTOPERATIVE DIAGNOSES: 1. Abscess of the right heel. 2. Infected nonhealing stage IV ulcer of the kodak l (5 cm x 4 cm). 3. Infected nonhealing stage IV ulcer of the for efoot with bone exposure and eschar of the right foot (5 cm x 4 cm). 4. Loose bone body fragment to the right heel. OPERATION PERFORMED: 1. Incision and drainage of abscess of the right heel. 2. Excisional debridement of infected nonhealing stage IV ulcer of the heel (5 cm x 4 cm) with resection of loos e bone body fragment of the right heel. 3. Excisional debridement of infected nonhealing stage IV ulcer and eschar of the forefoot with bone exposure ri ght foot (5 cm x 4 cm). 4. Pulse lavage irrigation of the right heel and forefoot, Versajet and Gel-Foam. HISTORY: This 59-year-old male patient was first identified outside the operating room due to contact isolat ion for his nonhealing infected stage IV ulcerations of both the right heel and the right forefoot post transmetatarsal ampu tation. The patient was identified. The right foot was marke d as indicated. Consent was reviewed and agreed upon and signed. Procedures risks, followup, and complications we re described in great detail and all questions were answered. INDICATIONS FOR SURGERY: Previous multiple debri dements of the right foot and heel for nonhealing ulcers with p revious matrices and split-thickness skin grafts applied , now in need of incision and drainage and debridement of thes e infected nonhealing ulcers of both the heel of the forefo ot. The patient was brought to the operating room, place d on the operating table in supine position at which time IV sedation was induced. He was on regularly scheduled IV an tibiotics. Time-out was first performed, the right foot was identified as marked. Consent was reviewed and agreed upon as signed, all were in concurrence with the time-out. Local ane sthetic Xylocaine 1% plain and Marcaine 0.5% plain in a 50/50 mixture was utilized and a total of 20 mL was utilized w ith a regional nerve block of the heel region in the forefoot o f the right foot. Sterile Betadine scrub and paint performed . Sterile draping was then performed. Attention was directed first to the right heel w here abscess formation was noted deeply with devitalized tiss ue, necrotic tissue seen. Incision and drainage of that absce ss were performed. Deep cultures were obtained both of t he heel of the forefoot, sent to Pathology for culture and sens itivity. Further excisional debridement was performed of all nonviable infected tissue, eschar, and necrotic tissue on the wound edges. Specimens were sent to Pathology for arnulfo s examination. At this time during the debridement, there was a small loose bone body fragment probably of the heel bone magdaleno caneus noted. It was excised and sent to Pathology for gross e xamination. Further excisional debridement was performed and after debridement was performed, introduction of the V ersajet was also utilized for further debridement. Palpation of the outer portion of the calcaneus was seen with granulati on tissue over the calcaneus bone. There was a deep pocket wher e the abscess had been seen. This ulceration measured approxim ately 5 cm in length by 4 cm in width. After Versajet was util ized and further debridement was accomplished, attention was now directed to the right forefoot where eschar was noted overlying the prominent exposed metatarsal bone stumps at the Lisfranc transmetatarsal amputation site. The eschar was surgically excised and sent to Pathology for gross examinat ion. Further excisional debridement was performed of all nonv iable tissue and infected tissue and the Versajet again was i ntroduced to this wound, which also measured 5 cm in width by 4 cm in length. After excisional debridement and Versaje t was utilized with this wound much quill cleaner and bones exposed i t was not deemed appropriate at this time to perform resec tion of the prominent bones will be done on the next staged procedure. After debridement was accomplished, pulse lavage irrigation with 3 L of saline was utilized. After irrigatio n was performed Gelfoam with hemostatic agent was util ized for hemostasis purposes. Hemostasis was accomplished with use of the cautery. Due to infection no matrix was appl ied at this occasion today. The wounds were packed first wit h Adaptic 0.25% Dakin solution 4x4s, multiple 4x4s with Da kin solution, then with ABD pads, Webril, Kerlix, and an Efrem w rap to the right foot. The patient tolerated the procedures , local anesthesia, and the IV sedation well and left th e operating room in apparent satisfactory condition with vit al signs stable. He was transferred to the PACU unit with vital signs stable. Sponge count was correct. No needles wer e utilized and the estimated blood loss was less than 25 mL . JAR/MODL /[id number] 2020-05-29 13:06:20-00:00 [facility] OPER[facility]/PROCEDURE REPORT [place] [facility] FACILITY: [facility] Billing #: [id number] Room: [facility] MR #: [id number] : 1960 DATE OF PROCEDURE: 05/29/2020 SURGEON: Star Cloud DPM The patient of Dr. Star Cloud DPM and Dr. Vern Danielle, at [facility]. PREOPERATIVE DIAGNOSES: 1. Nonhealing post-transmetatarsal amputation wo und with exposed prominent first, second, and third metat arsal stumps of the right foot (2 cm x 2 cm, 4 cm x 2 cm). 2. Stage 3 to 4 nonhealing ulceration with escha r of the right heel (6 cm x 5 cm). POSTOPERATIVE DIAGNOSES: 1. Nonhealing post-transmetatarsal amputation wo und with exposed prominent first, second, and third metat arsal stumps of the right foot (2 cm x 2 cm, 4 cm x 2 cm). 2. Stage 3 to 4 nonhealing ulceration with escha r of the right heel (6 cm x 5 cm). OPERATIONS PERFORMED: 1. Revision of transmetatarsal amputation wound with resection of prominent first, second, and third metatarsal bone stumps (2 cm x 2 cm, 4 cm x 2 cm), Dr. Cloud. 2. Excisional debridement of right heel ulcer es monserrat (6 cm x 5 cm), Dr. Cloud. 3. Heflin of split-thickness skin graft from th e right inner thigh (Dr. Danielle). 4. Application of split-thickness skin graft to the right foot (wound areas three separate wounds 2 cm x 2 cm, 4 cm x 2 cm and 5 cm x 6 cm on the right heel equaling a total o f 42 [address] cm). Dr. Cloud and Dr. Danielle. 5. Application of negative pressure wound VAC pl acement, right foot (Dr. Cloud). SURGEONS: 1. First, Star Cloud DPM. 2. Second, Clark Danielle MD, both primarie s. FAMILY PRACTITIONER: Drew Caballero [facility] resident. HISTORY: This 59-year-old male patient was first identified in the preoperative holding area at [facility] on 05/29/2020 in apparent satisfactory condition to undergo corrective foot surgery for post transmetatarsal amputation, nonhealing wound with prominent exposed metatars al stumps and dorsal bone as well as nonhealing stage 3 to 4 u lceration of the right heel with necrotic tissue and eschar. The patient was identified, right foot was marked as indicat ed. Consent was reviewed and agreed upon and signed. Procedu res, risks, followup, and complications were described in gr eat detail and all questions were answered. INDICATIONS FOR SURGERY: As above, nonhealing post-transmetatarsal amputation wound with promi nent exposed metatarsal bone stumps and nonhealing stage 3 to 4 heel ulcer with necrotic tissue and eschar in need of debri shelby and for application of split-thickness skin graft with Jaycob Danielle. The patient was brought to the operating room, placed on the operating table in a supine position, at which time, general anesthesia was induced. Local anesthetic Xylocaine 1% plain and Marcaine 0.5% plain infiltrated locall y to the left foot, a total of 15 cc and 10 cc to the right th igh. Time-out was performed. The patient was identified, the r ight foot was marked as indicated and identified. Consent was reviewed and agreed upon as signed and all were in concurrenc e with a time-out with both myself and Dr. Danielle. After l ocal anesthetic was injected to both sites sterile Be tadine scrub and paint performed. Sterile draping was then pe rformed. DESCRIPTION OF PROCEDURE: Attention was first di rected to the right heel where the nonhealing stage 3 to 4 ulc eration with eschar and necrotic tissue was sharply and excis ionally debrided. A total of 5 cm x 6 cm of the wound wa s debrided both sharply and then introduction of the Versaj et. Good bleeding was observed. The wound was much cleane r after debridement. Good bleeding was observed. The wou nd edges were viable and the wound again much quill cleaner. The wou nd was irrigated with sterile saline solution 1 L. Now attention was directed to the prominent bone exposure of the f irst, second and third metatarsal stumps we are utilizing sha rp dissection. Debridement of the granulation tissue overlying the bone stumps was performed utilizing a [employer] sagittal bone saw, the bone stumps were resected and the bones were sent to Pathology for gross examination. After debridement was accompl ished to those sites those wounds were also copiously irrigated with sterile saline solution. There was a dorsal exposure wou nd as well of dorsal bone which was also exposed and utilizing the Karmen bone saw, resection of that bone dorsally was pe rformed smoothed and contoured. This wound was also copi ously irrigated with sterile saline solution. That wou nd measured approximately 2 cm x 2 cm and the bone stump wou nds of the metatarsals measured 4 cm x 2 cm. Before debride ment of the right heel was performed aerobic and anaerobic c ultures were obtained and sent to Pathology for culture and s ensitivity. After all wounds were debrided and irrigated Dr. Danielle then harvested a split-thickness skin graft from the inner thigh of the right leg. A total of 42 square cm in order to cover the wound on the right foot. The split-thickness ski n graft was then placed to the right foot was expanded and c ut to three separate pieces, one for the distal bone stump a keke, one for the dorsal bones stump exposure and one for the right heel. The use of Cellerate hydrolyzed collagen powder was utilized, 1 g and then followed with application of the spli t-thickness skin graft to all three sites and sutured in kristen ce with 4-0 chromic suture. The grafts were then in good kristen cement and well adhered and then followed with the use of A daptic, application of a negative pressure wound VAC spo nge, tape, and the wound VAC was set to 120 mmHg and good sucti on was observed and no leaks. Dr. Danielle then dressed the right t high with again Cellerate powder, Xeroform and Tegaderm wi th a leg compression dressing placed on the right medial thigh donor site. Good bleeding was observed. Hemostasis was accomplished on all wound sites. Webril to the right foot wit h Efrem wrap. The patient tolerated the procedures, the genera l anesthesia, and local anesthesia well and left the operating room in apparent satisfactory condition with vital signs stable. He was transferred to the PACU unit with vital s igns stable. Estimated blood loss was approximately 50 mL. Sp onge count and needle count were correct. JAR/MODL /[id number] 2020-03-20 14:44:47-00:00 ST[facility] OPERATIVE/PROCEDURE REPORT [place] [facility] FACILITY: [facility] Billing #: [id number] [facility] MR #: [id number] : 1960 DATE OF PROCEDURE: 03/20/2020 SURGEON: Star Cloud DPM The patient of Dr. Star Cloud and Dr. Clark east. PREOPERATIVE DIAGNOSIS: Postoperative transmetat arsal amputation wound, plantar aspect of the right fo ot, 17 cm x 6 cm and of the dorsum of the right foot, 6 cm x 5 cm. POSTOPERATIVE DIAGNOSIS: Postoperative transmeta tarsal amputation wound, plantar aspect of the right fo ot, 17 cm x 6 cm and of the dorsum of the right foot, 6 cm x 5 cm). OPERATION PERFORMED: 1. Revision debridement of post transmetatarsal amputation wound, plantar aspect of the right foot (17 cm x 6 cm) and dorsum of the right foot (6 cm x 5 cm). (Hermes) 2.Heflin of STSG from right thigh (Shashi) 3. Application of STSG to the right foot (Shashi and Hermes) 4. 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 Consent was reviewed and agreed upon and signed. Procedures, risks, followup, and complications were described in gr eat detail, and all questions were answered. INDICATIONS FOR SURGERY: Previous transmetatarsa l amputation wound with previous revision resection of promin ent exposed bone and for debridement. The patient was on wou nd VAC, now prepared for split-thickness skin graft applicat ion. DESCRIPTION OF PROCEDURE: The patient was phyllis t to the operating room, in the operating room, placed on the operating table in supine position, at which time general anesthesia was induced. Local anesthetic Xylocaine 1% plain and Marcaine 0.5% plain infiltrated locally to the right foot and to the right thigh. Time-out was first performed to the right foot, right thigh was identified as indicated. Consent was r eviewed and agreed upon as signed. All were in concurrence w ith time-out both with myself, Dr. Cloud, and with Dr. Danielle. Sterile Betadine scrub and paint performed. Ster ile draping was then performed. Attention was now directed t o the right foot and the right thigh. The right foot surgica l excisional debridement was performed of all devitalized tis hina, subcutaneous exposed tissue, as well as with exp osed tendon tissue both dorsally and plantarly. Surgical exc isional debridement was performed and the wound margins were debrided as well sharply and the use of a Versajet was in troduced to the wound where further debridement was accomplished . Good bleeding was observed plantarly and dorsally. Th e plantar wound again measured approximately 17 cm x 6 cm and the dorsal wound measured approximately 6 cm x 5 cm. After debridement was accomplished, attention was directed to the right thigh, where Dr. Danielle then addressed the right thigh f or a harvesting of the split-thickness skin graft again measurin g 17 cm x 6 cm and 6 cm x 5 cm measuring approximately 102 squa re cm and 30 square cm. After harvesting of the split-thickne ss skin graft, the graft was then transferred to the right foot where first irrigation had been performed, followed by the u se of cautery for hemostasis purposes and the use of a gram of hydrolyzed collagen powder, Cellerate powder was applied. T he split-thickness skin graft was applied to the ri ght foot, both plantarly and dorsally and secured with 4-0 simp le interrupted chromic suture. A portion of excess split-thickn ess skin graft was then applied to the medial aspect of the rig ht heel, where again it was secured and sutured with 4-0 simple interrupted chromic suture. All wounds both plantarly and do rsally were now covered entirely, sutured in place with a sp lit-thickness skin graft. Hemostasis was accomplished and the wound both dorsally and plantarly was covered with sterile Adaptic dressing, followed by the use of a sponge both d orsally and plantarly with tape, and then a negative pressur e wound VAC was then applied set at 120 mmHg and good suction wa s observed with no leaks. Webril was applied with an Efrem wrap to secure the wound VAC. The patient tolerated the procedures, local anesthesia, general anesthesia well, left the op erating room in apparent satisfactory condition with vital signs stable. Sponge count and needle count were correct. The estimated blood loss was approximately 20 mL. The patient was transferred to the PACU unit with vital signs st able. JAR/MODL /[id number] 2020-03-13 17:55:42-00:00 ST[facility]D [facility] OPERATIVE/PROCEDURE REPORT [facility] FACILITY[facility] [id number] Room: [address] [place] [address] MR #: [id number] : 1960 DATE OF PROCEDURE: 03/13/2020 SURGEON: Star Cloud DPM The patient of Dr. Star Clodu and Dr. Clark east. PREOPERATIVE DIAGNOSES: 1. Nonhealing post-transmetatarsal amputation wo und with stage III ulcers of the dorsum, plantar and heel with eschar right foot. 2. Exposed base of the first metatarsal cuneifor m bones, right foot. POSTOPERATIVE DIAGNOSES: 1. Abscess, plantar aspect, right foot. 2. Nonhealing post-transmetatarsal amputation wo und with stage III ulcers, dorsum, plantar and heel with eschar s of the right foot. Last exposed base of the first metatarsal cuneiform bones of the right foot. OPERATIONS PERFORMED: 1. Incision and drainage of abscess, plantar asp ect of the right foot. 2. Revision excisional debridement of nonhealing transmetatarsal amputation wound, nonhealing sta ge III ulcers, dorsum plantar and heel, right foot. 3. Resection of exposed base of the first metata rsal medial cuneiform bone and planing of the medial navicul ar bone, right foot. 4. Pulse lavage irrigation, Versajet, 10 mL of F loSeal, and 0.25% Dakin solution packing. HISTORY: This 59-year-old male patient was first identified in the CV OR, where he was contact isolation. He wa s seen outside the operating room, identified. The right foot w as marked as identified. Consent was reviewed and agreed upon and signed. Procedures risks, followup, and complications we re described in great detail and all questions were answered. Th e patient was consented. INDICATIONS FOR SURGERY: The patient had a longs tanding post transmetatarsal amputation wound nonhealing with exposed bone, abscess formation, necrotic tissue, eschars, pos t application of DermACELL acellular dermal matrix skin substi tute, now in need of revision, excision of the eschars, and r esection of exposed bone. DESCRIPTION OF PROCEDURE: The patient was phyllis t to the operating room, placed on the operating table in supine position, at which time IV sedation was induced. Antibiotic was held after cultures were obtained. Time-out was performed. First performed, the right foot was identified as marked, consent was reviewed and agreed upon as signed. All were in concurrence with the time-out. Local anesthetic, Xylocaine 1% plain and Marcaine 0.5% plain was infiltrated lo mir. Anterior tibial nerve block, posterior tibial, a nd sural nerve block, medial and lateral plantar nerve block, a nd regional nerve block performed, 25 mL was utilized. Steri le Betadine scrub and paint performed. Sterile draping was t hen performed. Attention was first directed to the plantar aspe ct of the right foot, where a small abscess was observed. Aerobi c and anaerobic cultures were obtained both of the kristen ntar aspect of the foot along the granulation tissue as well as the dorsal aspect of the foot and along with the medial cun eiform bone and base of the first metatarsal bone exposed was al so cultured. After cultures were obtained and sent to Patholo gy for culture and sensitivity, attention was now directed to t he wound, where utilizing #15 blade, all eschars and necrotic ti ssue was surgically excised. Excisional debridement perfo rmed. Eschars from the stage III ulcer of the heel was perform ed with subcutaneous tissue observed. Plantar eschars as well as exposed tendon was also excised. All specimens w ere sent to Pathology for gross examination. After cultures have been obtained, 1.5 g of vancomycin were again given i n the IV. Further debridement was performed both dorsally, medially, and plantarly, were all necrotic tissue eschars were excised, all devitalized tissue also excised. The use of the Versajet was introduced to the wound and utilized for further debridement, both plantarly, dorsally, medially. All eschars had been excised. All exposed tendon was excised and now attention was directed to the medial aspect of the right foot, where exposed base of the first metatarsal bone, medial cuneif orm bone, and medial navicular bone was observed. No healing w as seen and eschars were excised over those bony areas as we ll. Since the wound was not healing with those exposed bones, it was deemed necessary that the remnant of the base of the fi rst metatarsal and the entire medial cuneiform bone be excised and planing of the medial navicular bone was also performed in order to allow for granulation tissue development and for wound healing. Bone specimens were sent to Pathology for both gross examination as well as for bone culture. After the bones were e xcised and revised, Bovie was utilized and cauterization of all bleeders was performed for hemostasis as well as the use of 10 mL of FloSeal. Hemostasis was accomplished. With the b one bleeding seen on the navicular Bone dorsally, the use of a bone wax was performed and sealed the bone from bleeding. Hem ostasis accomplished. Wound was copiously irrigated with 3 L of saline and Ancef. Irrigation was performed and h emostasis accomplished. The wound was then packed with 0.2 5% Dakin's solution 4x4's with Adaptic, use of two rolls, pad and Ac e wrap. He tolerated the procedures, local anesthesia, and sedation well, left in apparent satisfactory condition, stable. The patient was transferred to the PACU unit with vital sign s stable. Sponge count was correct. No needles were utiliz ed. The estimated blood loss was approximately 70 mL. JAR/MODL /[id number] 2020-01-11 17:40:20-00:00 [facility]/PROCEDURE REPORT [facility] NAVARRETE FACILITY: [facility] Billing #: [id number] Room: [address] [place] [address] MR #: [id number] : 1960 DATE OF PROCEDURE: 01/10/2020 SURGEON: Star Cloud DPM The patient of Dr. Star Cloud and Dr. Clark aest. LOCATION: [facility]. PREOPERATIVE DIAGNOSES: 1. Nonhealing post-transmetatarsal amputation wo und plantar aspect 15 cm x 8 cm, dorsum of the right foot 9 cm x 5 cm with exposed bone stumps and exposed first ray and cu neiform bones of the right foot. 2. Stage III ulcer with eschar of the right heel , 5 cm x 5 cm. POSTOPERATIVE DIAGNOSES: 1. Abscess dorsum of the met cuneiform joint, ri ght foot. 2. Abscess plantar medial arch, right foot. 3. Nonhealing post-transmetatarsal amputation wo und (plantar aspect 15 cm x 8 cm, dorsum 9 cm x 5 cm) with ex posed bone stumps and exposed first ray cuneiform bones rig ht foot. 4. Stage III diabetic ulcer with eschar of the r ight heel (5 cm x 5 cm). OPERATIONS PERFORMED: 1. Incision and drainage of dorsal abscess metat arsal cuneiform joint, right foot. 2. Incision and drainage of abscess plantar medi al arch, right foot. 3. Revision with excisional debridement of nonhe aling post-transmetatarsal amputation wound plantar 15 cm x 8 cm. 4. Dorsum 9 cm x 5 cm with exposed bone stumps a nd exposed first metatarsal ray and cuneiform bones, right foot. 5. Debridement of stage III ulcer with debrideme nt of eschar, right heel 5 cm x 5 cm. 6. Resection of exposed first and 4th metatarsal bone stumps, resection of exposed cuneiform bones of the righ t foot. 7. Application of three DermACELL acellular derm al matrix skin substitutes (9 x 5 cm, 8 x 12 cm, and 4 x 4 cm). 8. Versajet pulse lavage irrigation, 5 g of Cell erate hydrolyzed collagen powder, and 10 mL of FloSeal . FAMILY PRACTITIONER: Didier Gary M.D., first year surgical manager. HISTORY: This 59-year-old male patient was first identified in the [facility] preoperative holding area on 01/10/2020 , to undergo corrective surgery, revision of transmetatarsal amputation wound with exposed bone stumps, abscess formatio n in need of debridement, incision and drainage, and for appl ication of acellular dermal matrix skin substitute. The rig ht foot was identified and marked. Consent was reviewed and agreed upon and signed. Procedures risks, followup, and complications we re described in great detail and all questions were answered. INDICATIONS FOR SURGERY: Previous transmetatarsa l amputation wounds which had previously been debrided, julissa ion had taken place with matrices applied, but now breakdown o f the matrices with exposed 4th metatarsal bone stump, exposed portion of first ray and cuneiform bones to the right foot in need of debridement, resection and irrigation and applic ation of a new acellular dermal matrix skin substitute. DESCRIPTION OF PROCEDURE: The patient was broug ht to the operating room and placed on the operating table in the supine position, at which time IV sedation was induced, the patient was on regularly scheduled IV antibiotic. Theref ore, no antibiotic was given at this time. A time-out wa s first performed, the right foot was identified as angie ed, consent was reviewed and agreed upon as signed, all were in concurrence with the time-out. Local anesthetic with Xylocai ne 1% plain and Marcaine 0.5% plain infiltrated locally, ant erior tibial, posterior tibial, sural nerve block, medial and lateral plantar nerve block, and regional nerve block; a total o f 30 mL was utilized. Sterile Betadine scrub and paint perfo rmed. Sterile draping was then performed. Attention was directed first to the plantar aspe ct of the right foot, where eschars, exposed bone stumps, and re mnants of tendon were observed along with eschar to the ri t heel with stage III ulcer as part of the plantar aspect of the longitudinal arch also wound matrix had been rem bee prior to the procedure with eschar also present. Sharp de bridement was performed with 15 blade, eschars were excised an d sent to Pathology for examination. The right heel ulcer measuring approximately 5 cm x 5 cm was debrided and the e xcision of the eschar completed and sent to Pathology. Aerobic and anaerobic cultures were performed both of the plantar aspe ct of the right foot as well as the dorsum of the right foot. Th e two abscess pockets were observed at the met cuneiform joint as well as the plantar lateral aspect of the longitudinal arch. Aerobic and anaerobic cultures were obtained both dorsally a nd plantarly and sent to Pathology for culture and sensitivit y. Further debridement was accomplished plantarly and intro duction of the Versajet was utilized for further debridement of the wound edges for fibrous tissue, necrotic tissue, and n onviable tissue, particularly of the heel. Further debrid ement was accomplished with the wounds much quill cleaner and go od bleeding observed, cautery was utilized for hemostasis as was the use of 10 mL of FloSeal. Now, the dorsal aspect of the right foot was observed with necrotic tissue on the wound edges , devitalized tissue and exposed bone, first metatarsal bone s tump at the base as well as cuneiform bones, exposed bone we re resected with a bone saw. Sagittal bone saw was utilized and remodeling of the cuneiform bones to reduce any prominence or exposure. The fourth metatarsal bone stump was also resect ed and these bones specimens were sent to Pathology for gross examination. After resection of the bone stumps and remodelin g performed, further debridement was accomplished with the us e of the Versajet. After debridement was accomplished, go od bleeding was observed, particularly on the wound margins, cautery was utilized and the remaining portion of the FloSea l was also utilized. Prior to the FloSeal, a pulse lavage i rrigation 3 L of saline with vancomycin was utilized. Irrigati on was accomplished both dorsally and plantarly with th e wounds much quill cleaner, much more pristine, and no abscess form ation seen. Bone stumps have been resected, bone remodeled, eschar also excised on the heel, and now application of 5 g of Cellerate powder was utilized, followed by application of first an 8 x 12 cm DermACELL acellular dermal matrix to the plan tar aspect of the foot sutured in place with 4-0 simple interr upted nylon sutures. On the dorsum of the foot, a 5 cm x 9 c m DermACELL was applied with the Cellerate powder sutured in place with 4-0 nylon, remnants were then utilized for coverage over the distal aspect of the right foot, and then the remaining portion that was still exposed was closed and covered with 4 x 4 DermACELL acellular dermal matrix and sutured in place wit h 4-0 simple interrupted nylon sutures. Now, the entire wound site both plantarly and dorsally was covered, hemostasis h ad been accomplished, DermACELL in placed both dorsally and plantarly. The wound sites were then covered with sterile A daptic dressing with 4 x 4's impregnated in saline solution with antibiotic, mupirocin ointment around the wound edges and on the suture lines, additional 4x4s, Webril, and an Efrem wrap to the right foot with ABD pad. The patient tolerated the pro cedures, local anesthesia, and the IV sedation well; left the o perating room in apparent satisfactory condition with vital si gns stable. Transferred to the PACU unit with vital signs st able. Sponge count and needle count were correct and the lolly mated blood loss was approximately 50 mL. JAR/MODL /[id number] 2019-12-11 11:52:03-00:00 [facility] O[facility]/PROCEDURE REPORT [place] [facility]TE FACILITY: [facility] Billing #: [id number] Room: [facility] MR #: [id number] : 1960 DATE OF PROCEDURE: 12/11/2019 SURGEON: Star Cloud DPM The patient of Dr. Star Cloud DPM and Dr. Vern Danielle. LOCATION: [facility] CV surgery. PREOPERATIVE DIAGNOSIS: Nonhealing post-transmet atarsal amputation wounds plantar (15 cm x 8 cm, dorsum 8 cm x 10 cm) with exposed first metatarsal bone right foot. POSTOPERATIVE DIAGNOSIS: Nonhealing post-transme tatarsal amputation wounds plantar (15 cm x 8 cm, dorsum 8 cm x 10 cm) with exposed first metatarsal bone right foot. OPERATION PERFORMED: Revision of excisional debr idement of nonhealing post-transmetatarsal amputation wound s plantar (15 cm x 8 cm, dorsum 11 cm x 10 cm) with exposed fi rst metatarsal right foot with application of DermACELL and Hya lomatrix acellular dermal matrix, right foot. Pulse lavag e irrigation, Versajet, FloSeal 5 mL, and Cellerate powder 5 g . FAMILY PRACTITIONER: Brigid Cano DPM, 3rd year podiatry resident. HISTORY: The 59-year-old male patient was first identified in the CV Surgery preoperative holding area on 08/2019, in apparent satisfactory condition to undergo corre ctive surgery for excisional debridement of nonhealing post-tr ansmetatarsal amputation wounds, dorsum, plantar, and medial a spects of the right foot. The patient's right foot was identif ied and marked. Consent was reviewed and agreed upon and signed. Procedures risks, followup, and complications we re described in great detail and all questions were answered. INDICATIONS FOR SURGERY: The patient had previou s revisional debridement performed with application of DermAC ELL to both plantar, dorsal, and medial aspects of the right foot, but due to nonhealing and the matrices trying out due to faulty wound VAC therapy, the patient was in need of further debridement, revision, and application of new acellular derma l matrices, and wound VAC therapy. The patient was brought to e operating room, placed on the operating table in supine po sition, at which time IV sedation was induced. Time-out was first performed. The right foot was identified as angie ed. Consent was reviewed and agreed upon as signed and all w ere in concurrence with the time-out. Local anesthetic Xylocaine, 1% plain, and Marcaine 0.5% plain was infiltrated l ocally, anterior tibial, posterior tibial, sural nerve b lock, medial and lateral plantar nerve block. A total of 25 m L was utilized. Sterile Betadine scrub and paint perfo rmed. Sterile draping was then performed. DESCRIPTION OF PROCEDURE: Attention was directed to both the plantar and dorsal aspects of the post transmeta tarsal amputation wounds of the right foot. The plantar wound measuring approximately 15 cm in length by appro ximately 8 cm in width. The dorsal wound measuring approximate ly 11 cm in length x 10 cm in width. Aerobic and anaerobic c ultures were obtained and sent to Pathology, followed by 1 g of vancomycin given in the IV. Excisional debridement was perf ormed with #15 blade of all necrotic tissue, devitalized tissue , tendon exposure remnants of the right foot, both dorsal ly and plantarly. The wound edges were sharply debrided as well. All devitalized tissue was excised. After excisional debridement was performed and good bleeding was observed, fu rther debridement was accomplished with the use of a V ersajet, Was utilized and further debridement was perform ed and good bleeding was observed. The wounds were now cleaned of all necrotic tissue, devitalized tissue, and even of the remn ant of the first metatarsal bone and ray. After extensive d ebridement was accomplished with the wound much quill cleaner, the wo unds were then copiously irrigated with pulse lavage irrigation . A 3 L of saline with Ancef. After irrigation was performe d, 5 mL of FloSeal was utilized for hemostasis purposes. He mostasis was accomplished. Then, Cellerate Hydrolyzed collage n, powder 5 g was applied to the wound site, both dorsally and plantarly, followed by application of a Hyalomatrix, skin s ubstitute, acellular matrix dorsally measuring 10 cm x 10 c m and a DermACELL acellular dermal matrix skin substitut e plantarly was applied and that measured 8 cm x 12 cm and both matrices were secured with reggie to the wound margins and ed ges. Also, both matrices were stapled together in conjuncti on to cover the entire wound. With the wound completely covered, Adaptic was applied with 4 x 4's impregnated in mineral oil, saline was then utilized, 4x4s with Webril and Efrem wrap. No wound VAC was applied at this time due to the bleeding, but wi ll be applied at a later time today. The patient tolerated the procedures, local anesthesia, and the IV sedation well, left the operating room in apparent satisfactory condition with vit al signs stable. He was transferred to the PACU unit with vital signs stable. Sponge count and needle count were corre ct. ESTIMATED BLOOD LOSS: Approximately 20 mL. JAR/MODL /[id number] 2019-11-08 19:09:00-00:00 [facility] OPER[facility]IVE/PROCEDURE REPORT [facility] FACILITY: [facility] Billing #: [id number] Room: [address] [place] [address] MR #: [id number] : 1960 DATE OF PROCEDURE: 11/08/2019 SURGEON: Star Cloud DPM Patient of Dr. Star Cloud and Dr. Clark Danielle . PREOPERATIVE DIAGNOSES: Nonhealing post transmet atarsal amputation wound with exposed 1st and 5th metata rsal stumps with dry eschars, gangrene of the dorsal measuri ng 15 cm, medial to lateral 20 cm, and plantar 10 cm. POSTOPERATIVE DIAGNOSIS: Nonhealing post transme tatarsal amputation wound with exposed 1st and 5th metata rsal stumps with dry eschars, gangrene of the dorsal measuri ng 15 cm, medial to lateral 20 cm, and plantar 10 cm. OPERATION PERFORMED: 1. Revision of post transmetatarsal amputation w ound. Excisional debridement of dry eschar gangrene do rsal 15 cm, medial to lateral 20 cm, plantar 10 cm. 2. Resection of exposed 1st, 4th, and 5th metata rsal stumps (complete 5th ray resection). 3. Application of DermACELL acellular dermal mat cyril (one 8 x 12 cm and two 5 x 9 cm). 4. Pulse lavage irrigation, Versajet. 5. A 10 mg of FloSeal, 5 g of Cellerate hydrolyz ed collagen powder. FAMILY PRACTITIONER: Diana Montez DPM, 3rd year podiatr y resident. HISTORY: This 58-year-old male patient was first identified in the preoperative holding area on 11/08/2019 i n apparent satisfactory condition to undergo corrective jasmeet leonel for nonhealing failed post transmetatarsal amputatio n wound with now necrotic eschars, both dorsally, plantarly, medially, and laterally to the right foot in need of debrideme nt and exposed bone stumps also in need of resection. The patie nt was identified. The right foot was marked as indicat ed. Consent was reviewed and signed. Procedures, risks, followup, and complications w ere described in great detail and all questions were answered. INDICATIONS FOR SURGERY: The patient had previou s transmetatarsal amputation wound that was also r evised and application of DermACELL acellular dermal matrix and consequently due to home health care, wound VAC taping ischemic changes were noted to both the dorsal, medial, l ateral, and plantar aspects of the right foot. These eschars and necrotic tissue were in need of debridement excision. Bon e stumps were also in need of resection and revision and appli cation of acellular dermal matrix skin substitutes. DESCRIPTION OF PROCEDURE: The patient was phyllis t to the operating room, placed on the operating table in supine position, at which time IV sedation was induced. Antibiotic was held until after cultures were performed. Ti me-out was first performed. The right foot was identified a s marked. Consent was reviewed and agreed upon as signed. All were in agreement and concurrence with the time-out. Att ention was now directed to both the distal aspect of the post t ransmetatarsal amputation wound. The lateral wound margin as we ll as medial wound margin where aerobic and anaerobic culture s were obtained, sent to Pathology for culture and sens itivity. Now, sharp debridement was accomplished utilizing #15 blade in the large eschar both dorsally, medially, plantarly and laterally were excised carefully in order to maintain and to prevent loss of deep tissue and muscular tissue. Excisional d ebridement was accomplished. The eschars were sent to Pathology for gross examination. Cultures were also obtained deeply from that area utilizing the same cultures as initially taken. After debridement was accomplished of all four quadran ts of the right foot, it was noted that there was exposure of th e first metatarsal stump portion of the 4th metatarsal s tump and a large area to the midshaft of the 5th metatarsal stump. Excisional debridement of the 5th metatarsal, co mplete 5th ray resection was accomplished and utilizing a Armasight er sagittal bone saw, osteotomies were created to the 1st me tatarsal and 4th metatarsal. The toe stumps were no longer pr ominent and exposed. Those bone specimens were also sent to Pathology for gross examination as was the 5th metatarsal ray. After debridement was accomplished and the bone resect ions performed, all bleeders were cauterized and the use first o f 5 mg of FloSeal was utilized before pulse lavage irrigat ion was performed. Pulse lavage irrigation, a total of 6 L of saline with Ancef was accomplished. A 1 g of vancomycin was given in the IV at this time. After irrigation was perfor med, the remaining portion of 5 mg of FloSeal was utilize d for hemostasis purposes and hemostasis was accomplis hed. With the wounds now much quill cleaner, 5 g of Cellerate hydrol yzed collagen powder was applied to the wound areas of the rig ht foot. The wounds were now covered in toto, utilizing first an 8 x 12 cm and two 5 x 9 cm DermACELL acellular dermal skin matrix skin substitute. Those portions of skin substitute we re now fashioned over the wounds and stapled in place. Remnants of the DermACELL were also utilized for coverage ov er small areas. Complete coverage of the wound was accomplished . Due to the bleeding involved, no wound VAC was applied at t his time, but would rather be applied tomorrow. With the entir e wounds now covered completely with the DermACELL acellular dermal matrix, the wounds were then covered with 4 x 4's impreg nated in mineral oil. Both the dressings were applied wit h Adaptic first before the 4x4s were applied, Webril with ABD pads, and two Efrem wraps were applied for compression. The patient tolerated the procedures, local anesthesia, and the IV sedation well, left the operating room in apparent satisf actory condition with vital signs stable. Estimated blo od loss approximately 200 mL. Sponge count and needle co unt were correct. The patient was transferred to the PACU unit with vital signs stable. JAR/MODL /[id number] 2019-10-18 21:19:36-00:00 [facility] OPERATIVE/PROCEDURE REPORT [place] [facility] FACILITY: [facility] Billing #: [id number] Room: [address] [place] [address] MR #: [id number] : 1960 DATE OF PROCEDURE: 10/18/2019 SURGEON: Star Cloud DPM The patient of Dr. Star Cloud and Dr. Clark east. PREOPERATIVE DIAGNOSES: Nonhealing post transmet atarsal amputation wound with large plantar flap eschar of the right foot (15 cm x 7 cm). POSTOPERATIVE DIAGNOSES: Nonhealing post transme tatarsal amputation wound with large plantar flap eschar of the right foot (15 cm x 7 cm) with exposed 1st and 5th met atarsal bone stumps of the right foot. OPERATIONS PERFORMED: 1. Revision of nonhealing post-transmetatarsal a mputation wound and eschar, debridement of the wound, excision o f eschar, right foot, again that wound measuring 15 cm x 7 cm. 2. Resection of exposed 1st and 5th metatarsal s tump bone of the right foot. 3. Pulse lavage irrigation of the wound, right f oot. 4. Application of DermACELL acellular dermal mat cyril skin substitute (8 cm x 12 cm) with application of ne gative pressure wound VAC to the right foot. The use of Versajet and last application of Cellerate hydrolyzed collagen pow julia 1 g. PRIMARY SURGEON: Star Cloud DPM OTHER SURGEON: Clark Danielle MD. Public Address System Operator: Rachel Arora MD 1st year surgical manager HISTORY: This 58-year-old male patient was first identified in the [facility] preoperative area holding area where hi s right foot was marked, identified. Consent was reviewed and agreed upon and signed. Procedures, risks, followup, and com plications were described in great detail and all questions were answered. INDICATIONS FOR SURGERY: Post transmetatarsal am putation, closure flap, nonhealing, failure with eschar, i n need of debridement, in need of excision of the eschar, and application of a skin substitute or possible split-thickness skin graft. Dr. Danielle was present for the surgery, but did n ot scrub in preparation for possible split-thickness skin gr aft, which was not utilized in this case. However, Dr. Danielle wa s present through the case for teaching purposes with the 1st year surgical manager. DESCRIPTION OF PROCEDURE: The patient was phyllis t to the operating room, placed on the operating table in supine position, at which times general anesthesia was induced. In addition, local anesthetic Xylocaine 1% plain an d Marcaine 0.5% plain was infiltrated locally anterior tibial, p osterior tibial, sural as well as medial and lateral plan tar nerve blocks were utilized for local anesthetic. Steri le Betadine scrub and paint performed. Sterile draping was t hen performed. Procedure time-out was first performed. The righ t foot was identified as marked. Consent was reviewed and a greed upon as signed and all were in concurrence with the time -out. Attention was directed to the distal aspect of t he post transmetatarsal amputation wound where the wound measured approximately 15 cm in width with eschar extendi ng from medial to the lateral 5th metatarsal margin and from higgins perior to inferior, measuring approximately 7 cm. Utilizin g a sharp 15 blade, the eschar was carefully meticulously benjamin rided from the wound and after the entire escharectomy was acco mplished, the eschar was sent to Pathology for gross examinati on. Aerobic and anaerobic cultures were obtained for culture and sensitivity. After cultures were obtained, furth er excisional debridement was performed. All exposed remnants of tendons were excised. Most of them were of the plantar f lexor tendons, brevis, and longus tendons. After excision, insp ection of the wound showed exposure of the 1st and 5th metatar ari bone stumps and was in need of further revision. Utilizing a Genetics Squared sagittal bone saw, osteotomies were created, heike roximately 1.5 cm of bone was resected from both the 5th metata rsal as well as the 1st metatarsal. The bones were then contoure d so that there were no sharp edges. Further debridement w as accomplished both sharply and with the use of th e Versajet, which was introduced to the wound and good bleed ing was observed. With good blood flow noted, the use of Surgicel was utilized for hemostatic purposes and a cautery w as also utilized. After initial hemostasis was accomplis hed, the wound was then copiously irrigated with pulse lavage i rrigation 3 L of saline, with vancomycin, and Ancef. After ir rigation was performed. The Surgicel was again utilized for h emostatic purposes. With hemostatic conditions now obtaine d, the wound was then covered with a DermACELL acellular derm al skin matrix skin substitute measuring approximately 8 cm x 1 2 cm. Before the matrix was applied Cellerate hydrolyzed jose agen powder was applied to the wound and the matrix was then sut ured in place with 4-0 simple interrupted nylon sutures. The e ntire wound was covered with the matrix. After the matrix wa s applied, and with good hemostasis accomplished, a negative pr essure wound VAC was then applied with a medium-sized sponge, tape, and the wound VAC was set at 20 mmHg, good suction was o bserved with no leaks. Webril was then applied with Efrem wrap. Th e sponge was utilized to prevent pressure from the hose dorsa lly. The patient tolerated the procedures, local anesthes ia and the IV sedation well, left the operating room in appare nt satisfactory condition with vital signs stable. Transferred t o the PACU unit with vital signs stable. The sponge count a nd needle count were correct and the estimated blood loss was approximately 35 mL. JAR/MODL /[id number] 2019-06-19 20:30:27-00:00 [facility] OPERATIVE/PROCEDURE REPORT [place] [facility] FACILITY: [facility] Billing #: [id number] Room: [address] [place] [address] MR #: [id number] : 1960 DATE OF PROCEDURE: 06/19/2019 SURGEON: Star Cloud DPM Patient of Dr. Star Cloud and Dr. Clark Danielle PREOPERATIVE DIAGNOSES: 1. Abscess post operative amputation site, right foot. 2. Peripheral arterial disease, bilateral. 3. Infected nonhealing post second and third dig it amputation wound, right foot with exposed second metatarsal gangrene of the fourth digit of the right foot. POSTOPERATIVE DIAGNOSES: 1. Abscess post operative amputation site, right foot. 2. Peripheral arterial disease, bilateral. 3. Infected nonhealing post second and third dig it amputation wound, right foot with exposed second metatarsal gangrene of the fourth digit of the right foot. PROCEDURES PERFORMED: 1. Indocyanine green angiography (SPY), right fo ot. 2. Incision and drainage of the abscess postoper ative amputation site, right foot. 3. Transmetatarsal amputation of the right foot with advancement plantar flap primary closure, right foot. 4. Pulse lavage irrigation and Cellerate hydroly zed collagen powder. HISTORY: This 58-year-old male patient was first identified in the preoperative holding area. The right foot wa s identified as marked. Consent was reviewed and agreed upon and signed. Procedures risks, followup, and complications we re described in great detail and all questions were answered wit h business performance specialist and both in Ecuadorean. INDICATIONS FOR SURGERY: The patient had nonheal ing post amputation wound of the second and third digit w ith exposed metatarsal head on post angio by Dr. Danielle and n ow in need of transmetatarsal amputation of the right foot. Th e patient was brought to the operating room, placed on operati ng table in the supine position, at which time IV sedation was i nduced. Antibiotic was held until after cultures were pe rformed. He was on regular scheduled antibiotic. Timeout was first performed. The right foot was identified as angie ed. Consent was reviewed and agreed upon as signed. All were in concurrence with the time-out. Local anesthetic of Xylocaine 1% plain and Marcaine 0.5% plain was infiltrated locally to the right foot. A total of 30 mL was utilized; anter ior tibial, posterior tibial, and sural nerve block; regiona l; medial plantar and lateral plantar nerve block as well. After local anesthetic was performed, sterile Betadine scrub and paint performed. Sterile draping was then performed. PROCEDURE IN DETAIL: Attention was directed to t he postoperative amputation site, second and third digit of the right foot with exposed metatarsal bone abscess formation and fluid collection noted. Aerobic and anaerobic cu ltures were obtained and sent to Pathology for culture and s ensitivity. After cultures were performed, incision and drai nage of that abscess was then performed. Transverse skin inci zehra was carried out distally to the first metatarsal hea d and then proximally outlining the shaft of the second and third metatarsal and then extending transversely acros s the fourth and then distally to the fifth metatarsal. The i ncisions were then continued medially and laterally in a circu mferential manner and then plantarly just proximal to the n ecrotic tissue at the second and third metatarsal region heads. Incision was carried out transversely and plantarly in a blackwell sverse fashion and continued medially and laterally in a circum ferential manner from the previous incision. The incisions were deepened to the subcutaneous tissues through the exact sa me skin incisions both dorsally and plantarly. Incisions were then deepened through superficially fascial planes an d down to the extensor digitorum longus and brevis tendons, wh ich were then transversely incised. Again, the incisions were then carried out to the flexor hallucis longus and brevis ten dons and flexor digitorum longus and brevis tendons, which were then transversely incised and released. Both dorsal a nd plantar incisions were then carried out to periosteal ti ssues of the first, second, third, fourth and fifth metatarsa ls. There were underscored proximally. Utilizing a [employer] ttal bone saw, osteotomies were created at the surgical neck of the first, second, third, fourth, and fifth metatarsals. So ft tissue was released, periosteal tissues were released from the bone and the distal amputation was completed. Good bleedi ng was observed. The plantar flap had adequate, in fact very good blood supply. There was loss of skin tissue due to the infection and due to the nonhealing wound of the second and third metatarsals dorsally. After the amputation was completed, the volar plates of the plantar aspec t of the right foot were performed in the skin flap and soft ti ssue was dissected and excised. Attention was now directe d to the remnants of the extensor hallucis longus brevis and extensor digitorum longus and brevis tendons, which were retracted distally and then transversely released and exci sed. Same was performed of the plantar flexor hallucis longus and brevis and flexor digitorum longus and brevis tendon. After excision of those remnants, further debridement was performe d of all scar tissue, which was seen on the plantar aspect of the second and third metatarsal regions, where previous amputat ion was performed. Debulking was performed. Two semi-ell iptical skin incisions were carried out medially to remove th e dog ear from the medial closure site. There was one bleeder t hat was in need of hemostat and 3-0 silk tie. The remaining small bleeders were cauterized and hemostasis was acco mplished with the use of 5 mg of FloSeal. Pulse lavage irrigat ion with 3 L of saline with gentamicin was performed. With th e much quill cleaner and all devitalized tissue dorsally overlying th e second and third metatarsals excised and the wound much roberto aner. Hydrolyzed collagen Cellerate powder was applied 5 g and then a quarter-inch Turlock drain was then inserted int o the wound and the wound closure was accomplished with 3-0 simp le interrupted Prolene suture on a noncutting needle medially, 2-0 simple interrupted Prolene suture centrally, and 3-0 si mple interrupted Prolene suture noncutting needle lat erally. The entire wound was closed primarily with an advanc ement of the plantar flap. Good blood supply was noted to the flap. There was no tension on the wounds. Prior to the proce dure, indocyanine green angiography was performed with 3 mL of indocyanine green injected into the IV, followed by 10 mL of saline flush. The indocyanine green angiography fluoroscopy showed good blood flow leading to the transmetat arsal amputation site dorsally and the entire plantar flap showed excellent blood flow for advancement flap closur e primarily. With this in mind, the plantar flap showed good again perfusion as seen in the indocyanine green angiography at the time of closure. The wound was then covered with antibio tic ointment, Adaptic, 4x4's with ABD pad, Webril, Kerlix, and an Efrem wrap to the right foot. The patient tolerated the proced ures, local anesthesia, and the IV sedation well and left th e operating room in apparent satisfactory condition with vit al signs stable. The sponge count and needle count were c orrect. The estimated blood loss was approximately 75 mL. e patient was then transferred to the PACU unit with vital sig ns stable. GARTH/JORGE /[id number]
[2022-09-25 16:38] LABS: Absolute Lymphocytes (CBC) 0.8 K/uL (0.7-4.9); Hematocrit 31.8 % (39.6-49.0); Lymphocytes % 9.6 % (15.3-44.8); MCV 91.7 fL (80-100); MPV 8.6 fL (7.6-11.3); Platelets 195 thou/uL (152-406); RBC Red Blood Cell Count 3.47 M/uL (4.33-5.43)
[2022-09-25 16:59] LABS: Potassium 3.8 mEq/L (3.5-5.1)
[2022-09-25 17:02] LABS: Troponin High Sensitivity 34717.8 pg/mL (<58.9)
--- NOTE | 2022-09-25 17:04 | RAD REPORT ---
EXAM DESCRIPTION: Alex Single View09/25/2022 4:40 pm CLINICAL HISTORY: Syncope and hypo tension COMPARISON: 2021 FINDINGS: The lungs appear clear of acute infiltrate. The heart is mildly enlarged. Postsurgical changes involve chest IMPRESSION: No acute abnormalities displayed
[2022-09-25] MEDS ORDERED: HEPARIN/D5W 25,000 UNIT/500 ML BAG IV ONE (17:36)
[2022-09-25] MEDS ORDERED: HEPARIN 5000 UNIT/ML 1 ML VIAL ONE (17:36)
[2022-09-25 17:53] LABS: Protime INR 1.17
--- NOTE | 2022-09-25 18:26 | ER ---
Nurse's Notes [facility] Name: Dayton Grijalva Age: 61 yrs Sex: Male : 1960 Arrival Date: 09/25/2022 Time: 15:40 Bed 20 Private MD: Diagnosis: Non ST elevation [place];Syncope Near Presentation: 09/25 15:44 Chief complaint: EMS states: TEMPORARY HYPOTENSION AFTER DIALYSIS, FREQUENT H/O SAME. bp Coronavirus screen: At this time, the client does not indicate any symptoms associated with coronavirus-19. Ebola Screen: No symptoms or risks identified at this time. Initial Sepsis Screen: Does the patient meet any 2 criteria? No. Patient's initial sepsis screen is negative. Does the patient have a suspected source of infection? No. Patient's initial sepsis screen is negative. Risk Assessment: Do you want to hurt yourself or someone else? Patient reports no desire to harm self or others. Onset of symptoms was September 25, 2022. 15:44 Method Of Arrival: EMS: [facility] bp 15:44 Acuity: SAMARA 3 bp Triage Assessment: 15:45 General: Appears in no apparent distress. Behavior is appropriate for age. Pain: Denies bp pain. EENT: BLIND AT BASELINE. Neuro: No deficits noted. Cardiovascular: No deficits noted. Respiratory: No deficits noted. GI: No signs and/or symptoms were reported involving the gastrointestinal system. : No signs and/or symptoms were reported regarding the genitourinary system. Derm: No deficits noted. Musculoskeletal: No deficits noted. Historical: - Allergies: 15:45 No Known Allergies; bp - Home Meds: 15:45 aspirin 81 mg Oral tablet, delayed release (enteric coated) daily [Active]; bp atorvastatin 40 mg oral tablet every evening [Active]; carvedilol 25 mg oral tablet 2 times per day [Active]; Dialyvite 7-470-103-50 ni-ht-tzn-mg oral tablet daily [Active]; gabapentin 300 mg oral capsule every day at bedtime [Active]; hydralazine 25 mg Oral tablet 3 times per day [Active]; lisinopril 20 mg Oral tablet daily [Active]; Zoloft 25 mg Oral tablet daily [Active]; - PMHx: 15:45 Hypertensive disorder; End stage renal disease; bp - Immunization history:: Adult Immunizations up to date. - Social history:: Smoking status: Patient denies any tobacco usage or history of. Screenin:45 [facility] ED Fall Risk Assessment (Adult) History of falling in the last 3 months, bp including since admission No falls in past 3 months (0 pts). Abuse screen: Denies threats or abuse. Denies injuries from another. Nutritional screening: No deficits noted. Tuberculosis screening: No symptoms or risk factors identified. Assessment: 15:45 General: SEE TRIAGE NOTE. bp 16:45 Reassessment: Patient appears in no apparent distress at this time. Patient is alert, bp oriented x 3, equal unlabored respirations, skin warm/dry/pink. 17:36 Reassessment: Patient appears in no apparent distress at this time. Patient is alert, bp oriented x 3, equal unlabored respirations, skin warm/dry/pink. 19:24 General: Appears in no apparent distress. comfortable, Behavior is calm, cooperative. lg3 Pain: Denies pain. Neuro: No deficits noted. Rios Agitation-Sedation Scale (RASS): 0 - Alert and Calm Level of Consciousness is awake, alert, obeys commands, Oriented to person, place, time, situation. Cardiovascular: No deficits noted. Denies chest pain, shortness of breath, Capillary refill < 3 seconds Clubbing of nail beds is absent JVD is absent Patient's skin is warm and dry. Respiratory: No deficits noted. Airway is patent Respiratory effort is even, unlabored, Respiratory pattern is regular, symmetrical. GI: No deficits noted. No signs and/or symptoms were reported involving the gastrointestinal system. : No deficits noted. No signs and/or symptoms were reported regarding the genitourinary system. EENT: No deficits noted. No signs and/or symptoms were reported regarding the EENT system. Derm: No deficits noted. No signs and/or symptoms reported regarding the dermatologic system. Skin is intact, is healthy with good turgor, Skin is dry, Skin is normal, Skin temperature is warm. Musculoskeletal: No deficits noted. Amputation of right foot. Range of motion: intact in all extremities. Vital Signs: 15:44 BP 136 / 76; Pulse 62; Resp 16; Temp 98; Pulse Ox 99% ; bp 17:00 BP 184 / 85; Pulse 67; Resp 16; Pulse Ox 99% ; Weight 102 kg; bp 19:24 BP 179 / 82; Pulse 71; Resp 17 S; Pulse Ox 98% on R/A; lg3 ED Course: 15:44 Patient arrived in ED. bp 15:45 Triage completed. bp 15:45 Arm band placed on. bp 15:45 Patient has correct armband on for positive identification. Bed in low position. Call bp light in reach. Side rails up X2. Adult w/ patient. 15:50 Matthew Jaime, RN is Primary Nurse. bp 15:54 Marco Antonio Eid PA is PHCP. jmm 15:54 Leti Cruz is Attending Physician. jmm 16:41 XRAY Chest (1 view) In Process Unspecified. EDMS 16:45 Inserted saline lock: 22 gauge in right antecubital area, using aseptic technique. bp Blood collected. 18:25 Aron Madden MD is Hospitalizing Provider. [facility] 19:54 No provider procedures requiring assistance completed. Patient admitted, IV remains in lg3 place. intact, No redness/swelling at site. Administered Medications: 17:35 Drug: Heparin ([place]-Bolus No thrombolytic) - HEParin IVP 60 units/kg {Co-Signature: ld1 bp (Melanie Asif RN).} Route: IVP; Site: right antecubital; 19:55 Follow up: Response: No adverse reaction lg3 17:35 Drug: Heparin ([place] Drip) - (D5W IV 500 ml, [place] [address] units) 12 units/kg/hr bp {Co-Signature: ld1 (Melanie Asif RN).} Route: IV; Rate: calculated rate; Site: right antecubital; 19:55 Follow up: Response: No adverse reaction; IV Status: Infusion continued upon admission lg3 20:14 Drug: Aspirin PO Chewable Tablet 324 mg Route: PO; lg3 20:14 Follow up: Response: No adverse reaction lg3 Medication: 19:55 VIS not applicable for this client. lg3 Outcome: 18:25 Decision to Hospitalize by Provider. [facility] 19:54 Admitted to Med/surg accompanied by nurse, via stretcher, room 228, Report called to [facility] Jacqueline 19:54 Condition: stable 19:54 Instructed on the need for admit, Demonstrated understanding of instructions. 20:49 Patient left the ED. lg3 Signatures: Dispatcher [employer] Marco Antonio Kirby PA PA jmm Peltier, Brian, RN RN bp Elsy Champion RN RN lg3 Melanie Asif RN ld1
--- NOTE | 2022-09-25 18:26 | EDPHYS ---
Physician Documentation [facility] Name: Dayton Grijalva Age: 61 yrs Sex: Male : 1960 Arrival Date: 09/25/2022 Time: 15:40 Bed 20 Private MD: ED Physician Leti Cruz HPI: 09/25 15:55 This 61 yrs old Male presents to ER via EMS with complaints of Blood Pressure jmm Problem. 15:55 Onset: The symptoms/episode began/occurred acutely, today. Associated injury: The jmm patient did not suffer any apparent associated injury. This is a 61/m with a history of htn that presents to the ED with complaints of low blood pressure which occurred during dialysis. Patient had dialysis yesterday and today. patient was administered ns today which normalized the patient's blood pressure. . Historical: - Allergies: 15:45 No Known Allergies; bp - Home Meds: 15:45 aspirin 81 mg Oral tablet, delayed release (enteric coated) daily [Active]; bp atorvastatin 40 mg oral tablet every evening [Active]; carvedilol 25 mg oral tablet 2 times per day [Active]; Dialyvite 1-000-934-50 pn-sl-jbu-mg oral tablet daily [Active]; gabapentin 300 mg oral capsule every day at bedtime [Active]; hydralazine 25 mg Oral tablet 3 times per day [Active]; lisinopril 20 mg Oral tablet daily [Active]; Zoloft 25 mg Oral tablet daily [Active]; - PMHx: 15:45 Hypertensive disorder; End stage renal disease; bp - Immunization history:: Adult Immunizations up to date. - Social history:: Smoking status: Patient denies any tobacco usage or history of. ROS: 15:55 Constitutional: Negative for fever, chills, and weight loss, Cardiovascular: Negative jm for chest pain, palpitations, and edema, Respiratory: Negative for shortness of breath, cough, wheezing, and pleuritic chest pain. 15:55 All other systems are negative. Exam: 15:55 Constitutional: This is a well developed, well nourished patient who is awake, alert, jmm and in no acute distress. Head/Face: atraumatic. Eyes: EOMI, no conjunctival erythema appreciated ENT: Moist Mucus Membranes Neck: Trachea midline, Supple Chest/axilla: Normal chest wall appearance and motion. Cardiovascular: Regular rate and rhythm. No edema appreciated Respiratory: Normal respirations, no respiratory distress appreciated Abdomen/GI: Non distended Back: Normal ROM Skin: General appearance color normal MS/ Extremity: Moves all extremities, no obvious deformities appreciated, no edema noted to the lower extremities Neuro: Awake and alert Psych: Behavior is normal, Mood is normal, Patient is cooperative and pleasant Vital Signs: 15:44 BP 136 / 76; Pulse 62; Resp 16; Temp 98; Pulse Ox 99% ; bp 17:00 BP 184 / 85; Pulse 67; Resp 16; Pulse Ox 99% ; Weight 102 kg; bp 19:24 BP 179 / 82; Pulse 71; Resp 17 S; Pulse Ox 98% on R/A; lg3 MDM: 15:55 Patient medically screened. [facility] 18:24 Differential Diagnosis: cerebrovascular accident, acute myocardial infarction. Data jmm reviewed: vital signs, nurses notes, lab test result(s). Consideration of Admission/Observation Escalation of care including admission/observation considered. Management of patient was discussed with the following: Career Technical Counselor: Yesenia. Counseling: I had a detailed discussion with the patient and/or guardian regarding: the historical points, exam findings, and any diagnostic results supporting the discharge/admit diagnosis, lab results, the need for further work-up and treatment in the hospital. 09/25 16:10 Order name: Basic Metabolic Panel; Complete Time: 17:02 [facility] 09/25 16:10 Order name: CBC with Diff; Complete Time: 16:45 [facility] 09/25 16:10 Order name: Troponin HS; Complete Time: 17:02 [facility] 09/25 17:23 Order name: Protime (+inr); Complete Time: 17:57 bp 09/25 17:23 Order name: Ptt, Activated; Complete Time: 17:57 bp 09/25 16:10 Order name: XRAY Chest (1 view); Complete Time: 17:05 [facility] 09/25 16:10 Order name: EKG; Complete Time: 16:11 [facility] 09/25 16:10 Order name: Cardiac monitoring; Complete Time: 17:19 [facility] 09/25 16:10 Order name: EKG - Nurse/Tech; Complete Time: 17:19 [facility] 09/25 16:10 Order name: IV Saline Lock; Complete Time: 17:19 [facility] 09/25 16:10 Order name: Labs collected and sent; Complete Time: 17:19 [facility] 09/25 16:10 Order name: O2 Per Protocol; Complete Time: 16:11 [facility] 09/25 16:10 Order name: O2 Sat Monitoring; Complete Time: 16:11 [facility] Administered Medications: 17:35 Drug: Heparin (VT-Bolus No thrombolytic) - HEParin IVP 60 units/kg {Co-Signature: marsha1 bp (Melanie Asif RN).} Route: IVP; Site: right antecubital; 19:55 Follow up: Response: No adverse reaction lg3 17:35 Drug: Heparin ([place] Drip) - (D5W IV 500 ml, [place] [address] units) 12 units/kg/hr bp {Co-Signature: ld1 (Melanie Asif RN).} Route: IV; Rate: calculated rate; Site: right antecubital; 19:55 Follow up: Response: No adverse reaction; IV Status: Infusion continued upon admission lg3 20:14 Drug: Aspirin PO Chewable Tablet 324 mg Route: PO; lg3 20:14 Follow up: Response: No adverse reaction lg3 Disposition Summary: 09/25/22 18:25 Hospitalization Ordered Hospitalization Status: Inpatient Admission [facility] Provider: Aron Madden Location: Telemetry/MedSur (Inpatient) [facility] Condition: Stable jm Problem: new jmm Symptoms: are unchanged [facility] Bed/Room Type: Standard [facility] Room Assignment: 228(09/25/22 19:28) cg Diagnosis - Non ST elevation VT jmm - Syncope Near [facility] Forms: - Medication Reconciliation Form jm - SBAR form [facility] Signatures: Dispatcher [employer] EDMS Marco Antonio Eid PA PA m Adán Wylie, ORGANIZATIONAL DEVELOPMENT MANAGER-C ORGANIZATIONAL DEVELOPMENT MANAGER-Cla1 Joya Mera, RN RN cg Matthew Jaime RN RN Elsy Doyle RN RN lg3 Melanie Asif RN ld1 Corrections: (The following items were deleted from the chart) 19:28 18:25 jmm cg
[2022-09-25] MEDS ORDERED: ASPIRIN 81 MG CHEWABLE TABLET ONE (20:24)
[2022-09-25 20:32] VITALS: BMI 29.5
--- NOTE | 2022-09-25 20:32 | P.HP ---
Certification for Inpatient Patient admitted to: Inpatient With expected LOS: >2 Midnights Patient will require the following post-hospital care: None Practitioner: I am a practitioner with admitting privileges, knowledge of patient current condition, hospital course, and medical plan of care. Services: Services provided to patient in accordance with Admission requirements found in Title 42 Section 412.3 of the Code of Federal Regulations Patient History Date of Service: 09/25/22 Reason for admission: NSTEMI History of Present Illness: 61-year-old male with history of ESRD on HD MWF, CAD with previous CABG in 2019, hypertension presents to the emergency department with chief complaint of low blood pressure after dialysis. Apparently the last 2 times patient had dialysis his blood pressure has dropped into the reason he was sent to the emergency department for evaluation. He was evaluated in the emergency department his labs were significant for a markedly elevated high-sensitivity troponin of 34,717.8 as well as a hemoglobin 10.4 hematocrit 31.8 creatinine 5.12 GFR 12 glucose 142. ED provider discussed case with cardiology as well as send EKG for review. Patient is chest pain-free, did not have any chest pain at any point his last cardiac intervention was his triple-vessel bypass in 2019. Patient was started on heparin drip in the emergency department will need to be admitted with anticipation of heart catheterization be performed during hospitalization. Allergies No Known Allergies Allergy (Verified 10/21/21 23:09) Home Medications: Aspirin Chewable [Aspirin Chewable*] 81 mg PO DAILY 10/22/21 Atorvastatin Calcium [Lipitor] 40 mg PO DAILY 10/22/21 Carvedilol [Coreg] 25 mg PO BID 10/22/21 Ferrous Sulfate [Ferrous Sulfate*] 325 mg PO DAILY 10/22/21 Folic Acid/Vit B Complex and C [Dialyvite 800 Chewable Wafer] 1 tab PO DAILY 10/22/21 Gabapentin 300 mg PO DAILY 10/22/21 Hydralazine [Apresoline*] 2 tab PO TID 10/22/21 Lisinopril [Zestril] 20 mg PO BEDTIME 10/22/21 Sucroferric Oxyhydroxide [Velphoro] 3 tab PO TIDWM 10/22/21 - Past Medical/Surgical History Diabetic: Yes -: HTN -: DM, no insulin for over 1 month -: Neuropathy -: End-stage renal disease on dialysis -: BILATERAL TMA -: CAD previous CABG -: Transmet amputation left foot 2009 -: Back I&D 2016 x2 -: Cardiac bypass Psychosocial/ Personal History: Lives at home with his - Family History Mother -: GI disease Notes: Patient states that mother is in the hospital with a unknow GI problem Sister -: GI disease - Social History Smoking Status: Never smoker Alcohol use: No CD- Drugs: No Caffeine use: Yes Place of Residence: Home Review of Systems Unremarkable Physical Examination - Physical Exam General: Alert, In no apparent distress, Oriented x3 HEENT: Atraumatic, PERRLA, Mucous membr. moist/pink, EOMI, Sclerae nonicteric Neck: Supple, 2+ carotid pulse no bruit, No LAD, Without JVD or thyroid abnormality Respiratory: Clear to auscultation bilaterally, Normal air movement Cardiovascular: Regular rate/rhythm, Normal S1 S2 Gastrointestinal: Normal bowel sounds, No tenderness Musculoskeletal: No tenderness Integumentary: No rashes Neurological: Normal gait, Normal speech, Normal strength at 5/5 x4 extr, Normal tone, Normal affect Lymphatics: No axilla or inguinal lymphadenopathy - Studies Laboratory Data (last 24 hrs) 09/25/22 17:30: PT 12.9 H, INR 1.17, APTT 29.2 09/25/22 16:15: WBC 8.80, Hgb 10.4 L, Hct 31.8 L, Plt Count 195 09/25/22 16:15: Sodium 135 L, Potassium 3.8, BUN 27 H, Creatinine 5.12 H, Glucose 142 H Assessment and Plan - Plan Assessment: NSTEMI-history of CAD with previous CABG ESRD on HD MWF DMII HTN Plan: NSTEMI-history of CAD with previous CABG Case was discussed with cardiology who also reviewed EKG, continue heparin drip, aspirin, atorvastatin. Echocardiogram and cardiology consult ordered. Plan for heart catheterization on Tuesday. Patient chest pain-free at this time completely asymptomatic, had bypass in 2018. ESRD on HD MWF Nephrology consult in place, patient had dialysis today as he missed dialysis earlier this week. DMII Not on any medications currently, will obtain A1c in the morning, start sliding scale blood sugars run high. HTN Continue home medications. DVT PPX:heparin drip Code status:Full Discharge Plan: Home Plan to discharge in: Greater than 2 days - Advance Directives Does patient have a Living Will: No Does patient have a Durable POA for Healthcare: No - Code Status/Comfort Care Code Status Assessed: Yes (Full code) Critical Care: No Time Spent Managing Pts Care (In Minutes): 55
[2022-09-25] MEDS ORDERED: ONDANSETRON 4 MG/2 ML VIAL IV PRN (20:33)
[2022-09-25] MEDS ORDERED: HEPARIN 5000 UNIT/ML 1 ML VIAL SQ SCH (21:00)
[2022-09-25] MEDS: ATORVASTATIN 40 MG TAB PO SCH (21:38)
[2022-09-25] MEDS: MELATONIN 5 MG TABLET PO PRN (23:51)
[2022-09-26 03:29] LABS: Absolute Lymphocytes (CBC) 1.4 K/uL (0.7-4.9); Hematocrit 32.1 % (39.6-49.0); MCV 91.6 fL (80-100); MPV 8.6 fL (7.6-11.3); Platelets 204 thou/uL (152-406)
[2022-09-26 03:59] LABS: Potassium 3.9 mEq/L (3.5-5.1); Thyroid Stimulating Hormone 1.21 uIU/mL (0.358-3.740)
[2022-09-26 04:03] LABS: Troponin High Sensitivity 21832.2 pg/mL (<58.9)
[2022-09-26] MEDS: Sucroferric Oxyhydroxide [Velphoro] 500 MG Tab.Chew PO SCH ×2 (08:00→11:42)
[2022-09-26] MEDS: SEVELAMER CARBONATE 800 MG TABLET PO SCH ×3 (08:23→17:21)
[2022-09-26] MEDS: carvediloL 25 MG TAB PO SCH ×2 (08:23→20:37)
[2022-09-26] MEDS: lisinopriL 20 MG TAB PO SCH (08:23)
[2022-09-26] MEDS: HYDRALAZINE HCL 25 MG TABLET PO SCH ×3 (08:23→20:37)
[2022-09-26] MEDS: ASPIRIN EC 81 MG TAB PO SCH (08:23)
[2022-09-26] MEDS: FERROUS SULFATE 325 MG TAB PO SCH (08:23)
[2022-09-26] MEDS: GABAPENTIN 300 MG CAP PO SCH (08:23)
--- NOTE | 2022-09-26 14:22 | P.PN ---
Subjective Date of Service: 09/26/22 Chief Complaint: NSTEMI No acute events since admission. He reports mild chest pain, which has largely subsided. He denies any palpitations or shortness of breath. Review of Systems 10-point ROS is otherwise unremarkable Cardiovascular: Chest Pain Physical Examination - Vital Signs Temperature: 98.2 F Blood Pressure: 112/56 Pulse: 68 Respirations: 14 Pulse Ox (%): 98 - Physical Exam General: Alert, In no apparent distress, Oriented x3 HEENT: Atraumatic, Mucous membr. moist/pink, Sclerae nonicteric Neck: JVD not distended Respiratory: Clear to auscultation bilaterally, Normal air movement Cardiovascular: Regular rate/rhythm, Normal S1 S2, No gallops, No rubs, No murmurs, Edema (trace-1+ BLE) Gastrointestinal: Normal bowel sounds, Soft and benign, Non-distended, No tenderness, No rebound, No guarding Musculoskeletal: No clubbing Integumentary: No rashes Neurological: Normal speech, Normal affect - Studies Laboratory Data (last 24 hrs) 09/25/22 17:30: PT 12.9 H, INR 1.17, APTT 29.2 09/25/22 16:15: WBC 8.80, Hgb 10.4 L, Hct 31.8 L, Plt Count 195 09/25/22 16:15: Sodium 135 L, Potassium 3.8, BUN 27 H, Creatinine 5.12 H, Glucos e 142 H Assessment And Plan - Plan # Non-ST Segment Elevation Myocardial Infarction # Coronary Artery Disease s/p CABG # Hypertension - Evaluation thus far: - EKG: without STEMI criteria, trend - Serial troponin: 39659.8 -> 36157.8 -> 70443.2 - Ordered transthoracic echocardiogram - Chest x-ray = "no acute abnormalities displayed." - Management plan: - Consult Cardiology and spoke with Dr. 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
[2022-09-26] MEDS: HEPARIN/D5W 25,000 UNIT/500 ML BAG IV SCH (17:24)
[2022-09-26] MEDS: ATORVASTATIN 40 MG TAB PO SCH (20:37)
[2022-09-26] MEDS: MELATONIN 5 MG TABLET PO PRN (20:38)
--- NOTE | 2022-09-26 20:45 | P.PN ---
Date of Service: 09/27/22 Subjective: Patient was seen by cardiology. Scheduled for cardiac catheterization in the morning. Continue with antiplatelet therapy and statin therapy. Continue with strict blood pressure control. Echocardiogram revealed normal ejection fraction of 60%. Patient with severe diastolic heart failure as well. ROS: 10 point ROS as noted above, otherwise negative Physical Exam: Gen: Alert,oriented, NAD; oriented to person place and time CV: regular rate & rhythm, trace-1+ BLE edema Pulm: clear bilaterally Abd: soft, non-tender, non-distended Extremities: No clubbing no cyanosis or edema Neuro: no focal deficits Problem List: 1. NSTEMI 2. Coronary Artery Disease s/p CABG 3. Hypertension 4. ESRD on MWF HD 5. DM2 with Neuropathy PLAN 1. Cardiac catheterization in a.m. 2. Continue with antiplatelet therapy and statin therapy 3. Continue with diuresing patient 4. Appreciate nephrology consultation and continue with hemodialysis 5. Continue with strict blood sugar control 6. Monitor hemodynamics 7. GI and DVT prophylaxis
--- NOTE | 2022-09-27 03:06 | CON ---
Date of Consultation: 09/26/2022 Chief Complaint: End-stage renal disease, on hemodialysis. History Of Present Illness: The patient is admitted to the hospital because of hypotension and non-S T elevation myocardial infarction. The patient is a 61-year-old man with history of end-stage renal disease, on dialysis, undergoing dialysis 3 times per week on Tuesday, Tuesday, Tuesday, he may need dialysis earlier this week and he came for additional session on Tuesday. He has history of coronar y artery disease, previous CABG in 2019, hypertension, history of diabetic retinopathy, peripheral ne uropathy, diabetic kidney disease. The patient was referred to emergency room because dialysis was d one on Tuesday; and during dialysis, the patient developed hypotension and was sent to emergency [facility] . Elevated troponin was 34,717, hemoglobin 10.4, creatinine 5.12, glucose 142. The patient has his tory of CABG. He denied chest pain. He is to have cardiac catheterization tomorrow for non-ST eleva tion OR. The patient is admitted to the hospital. He remains hemodynamically stable. He did not re quire pressors. Review of Systems: General: Denies fever or chills. Eyes: Denies vision changes. Ears, Nose, Mouth, and Throat: Denies sore throat or earache. Respiratory: Denies PND or orthopnea. Cardiovascular: Denies chest pain or palpitation. GI: Denies nausea or vomiting. Past Medical History: Diabetes mellitus, diabetic retinopathy, neuropathy, nephropathy, bilateral TM A, coronary artery disease, previous CABG, transmetatarsal amputation of the left foot in 2009, 2017 x2, cardiac bypass, and peripheral neuropathy. The patient has severe vision impairment. Family History: Mother, GI disease. Sister, GI disease. Social History: Denies tobacco or alcohol. Denies drugs. Physical Examination: General: The patient is not in apparent distress. Eyes: Anicteric sclerae. EOMI. Ears, Nose, Mouth, and Throat: Oral mucosa moist. No pallor. Neck: Supple. No bruits. Lungs: Diminished breath sounds at bases. Heart: S1 and S2. ABDOMEN: Soft. Extremities: Slight peripheral edema. Laboratory Data: PT 12.9, INR 1.78, and PTT 29.2. WBC 8.8, hemoglobin 10.4, hematocrit 31.8, and pl atelet count 195,000. Sodium 135, potassium 3.8, BUN 27, creatinine 5.1, and glucose 142. Impression And Plan: 1.Non-ST elevation myocardial infarction. 2.History of coronary artery disease, previous CABG. The patient is to have cardiac catheterization tomorrow. Plan is to evaluate potassium level. The patient will need dialysis after cardiac cathet erization is done to prevent contrast in view of hyperkalemia. The patient has non-ST elevation myoc ardial infarction, he currently is on heparin drip. Echocardiogram was ordered by Cardiology. The p atient will have coronary artery angiogram done tomorrow. 3.Anemia and chronic kidney disease. Monitor hemoglobin level closely. Adjust KADI as needed. 4.Renal osteodystrophy. Monitor phosphorus level and continue binders. 5.Diabetes mellitus. Continue insulin. EB/MODL Voice ID: [id number] Report ID: [id number]
[2022-09-27 04:40] LABS: Absolute Lymphocytes (CBC) 1.1 K/uL (0.7-4.9); Hematocrit 29.2 % (39.6-49.0); Lymphocytes % 11.7 % (15.3-44.8); MCV 91.5 fL (80-100); MPV 8.9 fL (7.6-11.3); Platelets 209 thou/uL (152-406); RBC Red Blood Cell Count 3.19 M/uL (4.33-5.43)
[2022-09-27 05:09] LABS: Potassium 4.1 mEq/L (3.5-5.1)
[2022-09-27] MEDS: ASPIRIN EC 81 MG TAB PO SCH (06:10)
[2022-09-27] MEDS: SEVELAMER CARBONATE 800 MG TABLET PO SCH ×3 (08:00→16:10)
[2022-09-27] MEDS: GABAPENTIN 300 MG CAP PO SCH (09:00)
[2022-09-27] MEDS: lisinopriL 20 MG TAB PO SCH (09:00)
[2022-09-27] MEDS: HYDRALAZINE HCL 25 MG TABLET PO SCH ×3 (09:00→21:52)
[2022-09-27] MEDS: FERROUS SULFATE 325 MG TAB PO SCH (09:00)
[2022-09-27] MEDS: carvediloL 25 MG TAB PO SCH ×2 (09:00→21:53)
[2022-09-27] MEDS: HEPARIN/D5W 25,000 UNIT/500 ML BAG IV SCH (11:28)
[2022-09-27] MEDS ORDERED: NA CHLORIDE 0.9% 500 ML ONE (16:27)
[2022-09-27] MEDS ORDERED: FENTANYL CITR 100 MCG/2 ML ONE (17:43)
[2022-09-27] MEDS ORDERED: LIDOCAINE 1% 20 ML MDV ONE ×2 (17:43→18:12)
[2022-09-27] MEDS ORDERED: HEPA 1000U/500MLS 2,000 UNIT/1,000 ML BAG IV ONE ×2 (17:43→17:44)
[2022-09-27] MEDS ORDERED: NITROGLYCERIN 100 MCG/ML SYR (for cath lab use only) IV ONE (17:44)
[2022-09-27] MEDS ORDERED: HEPARIN 10,000 UNIT/10 ML VIAL IV ONE (17:44)
[2022-09-27] MEDS ORDERED: MIDAZOLAM HCL 2 MG/2 ML INJ ONE (17:44)
[2022-09-27] MEDS ORDERED: ATROPINE SULF 1 MG/10 ML SYR IV ONE (17:44)
[2022-09-27] MEDS ORDERED: TICAGRELOR 90 MG TABLET PO ONE (18:39)
[2022-09-27 18:53] LABS: Hepatitis B Surface Ab - Quant 56.67 mIU/mL (<8.0)
[2022-09-27 18:54] LABS: Hepatitis B surface AG Interp. Nonreactive (Nonreactive)
[2022-09-27] MEDS: ATORVASTATIN 40 MG TAB PO SCH (21:52)
--- NOTE | 2022-09-28 02:09 | PN ---
Date of Progress Note: 09/27/2022 Chief Complaint: End-stage renal disease, on hemodialysis. History Of Present Illness: The patient is admitted to the hospital because of hypotension and ynd-MH-wnpgqrfsc myocardial infarction. The patient is a 61-year-old man with history of end-stage renal disease, on hemodialysis, undergoing dialysis 3 times per week on Tuesday, Tuesday, Tuesday. The patient was sent from dialysis to the hospital because he became hypotensive. The patient has history of coronary artery disease, previous CABG done 2019. He has history of hypertension, diabetic retinopathy, peripheral neuropathy, diabetic kidney disease. In the emergency room, he was found to have troponin 34, 717, hemoglobin 10.4, creatinine level 5.1, glucose 142. The patient is admitted for cardiac catheterization and management of kjl-AM-[id number] myocardial infarction. The patient does not have shortness of breath. Review of Systems: Denies fever, chills. Denies chest pain, palpitation, syncope. Physical Examination: Lungs: Clear to auscultation bilaterally. Heart: S1-S2. Abdomen: Soft. Extremities: Minimal edema. Impression And Plan: 1. End-stage renal disease. The patient will have dialysis after procedure to control volemia and prevent contrast related hyperkalemia. 2. History of coronary artery disease, previous CABG per the [employer] material inspector recommendation. 3. Anemia of chronic disease. Monitor hemoglobin level closely. Adjust KADI as needed. 4. Renal osteodystrophy. Monitor phosphorus level. Continue binders. BEAR/JORGE Voice ID: [id number] Report ID: [id number] NICOLE
[2022-09-28 03:26] LABS: Absolute Lymphocytes (CBC) 0.6 K/uL (0.7-4.9); Hematocrit 28.4 % (39.6-49.0); Lymphocytes % 7.6 % (15.3-44.8); MCV 90.9 fL (80-100); MPV 9.2 fL (7.6-11.3); Platelets 213 thou/uL (152-406); RBC Red Blood Cell Count 3.12 M/uL (4.33-5.43)
[2022-09-28 03:56] LABS: Potassium 4.8 mEq/L (3.5-5.1)
--- NOTE | 2022-09-28 06:50 | ECHO ---
HEIGHT: 6 ft 1 in WEIGHT: 224 lb 3.2 oz DATE OF STUDY: 09/27/[address]: Adán Wylie NP 2-DIMENSIONAL: YES M.MODE: YES DOPPLER: YES COLOR FLOW: YES TDS: PORTABLE: YES DEFINITY: BUBBLE STUDY: DIAGNOSIS: NSTEMI CARDIAC HISTORY: CATHERIZATION: YES SURGERY: YES PROSTHETIC VALVE: PACEMAKER: MEASUREMENTS (cm) DIASTOLIC (NORMALS) SYSTOLIC (NORMALS) IVSd 1.3 (0.6-1.2) LA Diam 5.1 (1.9-4.0) LVEF 55% LVIDd 5.4 (3.5-5.7) LVIDs 4.5 (2.0-3.5) %FS 17% LVPWd 1.6 (0.6-1.2) Ao Diam 2.8 (2.0-3.7) 2 DIMENSIONAL ASSESSMENT: RIGHT ATRIUM: NORMAL LEFT ATRIUM: ENLARGED RIGHT VENTRICLE: NORMAL LEFT VENTRICLE: NORMAL TRICUSPID VALVE: MODERATE TRICUSPID REGURGITATON MITRAL VALVE: MODERATE MITRAL REGURGITATION PULMONIC VALVE: NORMAL AORTIC VALVE: NORMAL PERICARDIAL EFFUSION: NONE AORTIC ROOT: NORMAL LEFT VENTRICULAR WALL MOTION: NORMAL DOPPLER/COLOR FLOW: SEE BELOW COMMENTS: 1. NORMAL LEFT VENTRICULAR EJECTION FRACTION 55-60% WITH NORMAL WALL MOTION 2. MILD CONCENTRIC LEFT VENTRICULAR HYPERTROPHY 3. SEVERE DIASTOLIC DYSFUNCTION 4. SEVERELY ENLARGED LEFT ATRIUM 5. MODERATE TRICUSPID REGURGITATION 6. MODERATE MITRAL REGURGITATION TECHNOLOGIST: PAOLA ALMEIDA
[2022-09-28] MEDS: HYDRALAZINE HCL 25 MG TABLET PO SCH ×3 (09:14→20:35)
[2022-09-28] MEDS: ASPIRIN EC 81 MG TAB PO SCH (09:15)
[2022-09-28] MEDS: lisinopriL 20 MG TAB PO SCH (09:16)
[2022-09-28] MEDS: SEVELAMER CARBONATE 800 MG TABLET PO SCH ×3 (09:16→17:00)
[2022-09-28] MEDS: carvediloL 25 MG TAB PO SCH ×2 (09:17→20:35)
[2022-09-28] MEDS: FERROUS SULFATE 325 MG TAB PO SCH (09:17)
[2022-09-28] MEDS: GABAPENTIN 300 MG CAP PO SCH (09:18)
--- NOTE | 2022-09-28 15:01 | EKG ---
Test Date: 2022-09-25 Test Time: 17:07:42 Inserter Operator: SOPHIA MEASUREMENT RESULTS: Intervals: Rate: 75 ND: 130 QRSD: 104 QT: 462 QTc: 515 [place]: P: 53 ND: 130 QRS: -24 T: 136 INTERPRETIVE STATEMENTS: Normal sinus rhythm ST & T wave abnormality, consider lateral ischemia Prolonged QT Abnormal ECG Compared to ECG 04/08/2022 22:06:31 ST (T wave) deviation now present Possible ischemia now present Electronically Signed On 09-28-22 14:57:31 CDT by Giovanny Patterson
--- NOTE | 2022-09-28 15:54 | P.PN ---
Subjective Date of Service: 09/28/22 Chief Complaint: NSTEMI Subjective: Other (received HD today.) Physical Examination - Vital Signs Temperature: 97.9 F Blood Pressure: 141/67 Pulse: 77 Respirations: 18 Pulse Ox (%): 100 - Physical Exam General: Other (chronically ill-appearing) HEENT: Atraumatic, Normocephalic Neck: Supple, JVD not distended Respiratory: Other (symmetric chest expansion) Cardiovascular: No rubs, No murmurs Gastrointestinal: Soft and benign, Non-distended Musculoskeletal: No clubbing Neurological: Normal tone Urinary: Other (no bladder distention) External genitalia: Deferred Rectal: Deferred Assessment And Plan - Plan 1. End-stage renal disease. HD TTS sked while in house. 2. History of coronary artery disease, previous CABG. S/p LHC on 09/27. Per Cardiology. 3. Anemia of chronic disease. Monitor CBC. 4. Renal osteodystrophy. Monitor phosphorus level. Continue binders.
--- NOTE | 2022-09-28 16:14 | CON ---
Date of Consultation: 09/27/2022 Reason For Consultation: Elevated troponin. History Of Present Illness: A 61-year-old male with history of end-stage renal disease, on hemodialy sis, history of coronary artery disease, status post CABG in 2019, hypertension, presented to the [facility] room after low blood pressure during dialysis. The patient denies having any chest pain or sh ortness of breath. Troponin was elevated significantly and hence I was consulted to evaluate him by bedside and the patient had no complaints of chest pain and he feels generally well. No symptoms. Past Medical History: As outlined above in the HPI, coronary artery disease, dyslipidemia, hypertens ion, end-stage renal disease, and diabetes. Past Surgical History: Cardiac bypass surgery. Medications: Refer to reconciliation sheet for detailed list. Medications were reviewed. Allergies: NO KNOWN DRUG ALLERGIES. Family History: No premature coronary artery disease or cancer. Social History: He does not smoke or drink. Does not use any drugs. Review of Systems: All systems reviewed and they were negative except what mentioned in HPI. Physical Examination: Vital Signs: Reviewed. Head and Neck: Pupils are equal, reactive to light. Intact eye movements. No JVD. No cervical lym phadenopathy. Neck is supple. Thyroid is not enlarged. Lungs: Clear to auscultation bilaterally. No rhonchi, wheezing, or crackles. No accessory muscle u se. Heart: Regular rate and rhythm. No extra sounds. Abdomen: Soft, nontender. Bowel sounds positive. No organomegaly. No masses or hernia. No rigidi ty or rebound. Extremities: No edema, clubbing, or cyanosis. Intact pulses. Skin: No rash. Neurologic: Alert, awake, oriented x3. No acute focal deficits appreciated. Lymph Nodes: No cervical or axillary lymphadenopathy. Investigations: Troponin peaked at 34,000 and down to 21,000. Assessment And Recommendations: 1.Non-ST elevation myocardial infarction. The patient has no chest pain; however, troponin is signi ficant elevated. Keep n.p.o. and plan for a coronary angiogram with bypass graft study. In the inte rim, continue baby aspirin and heparin drip. 2.Hypertension. Blood pressure is controlled. 3.Dyslipidemia. Continue Lipitor 40 mg at bedtime. 4.End-stage renal disease, on hemodialysis. SR/MODL Voice ID: [id number] Report ID: [id number]
--- NOTE | 2022-09-28 16:22 | OP ---
Date of Procedure: 09/27/2022 Surgeon: RODRIGUEZ JURADO Procedures Performed: 1.Selective coronary angiogram with bypass graft study. 2.Failed attempt of PCI, the SVG graft of the RCA. Access: Right femoral artery 6-Georgian closed with 6-Georgian Angio-Seal. DICTATION ENDS HERE SR/JORGE Voice ID: [id number] Report ID: [id number]
--- NOTE | 2022-09-28 16:51 | PN ---
Date of Progress Note: 09/28/2022 Subjective: Seen by bedside. Still not having any chest pain. Review of Systems: No chest pain, shortness of breath, orthopnea, cough. No nausea, vomiting, diarrhea. All other syst ems reviewed and they were negative. Physical Examination: Vital Signs: Reviewed. Head and Neck: Pupils are equal, reactive to light. Intact eye movements. No JVD. No cervical lym phadenopathy. Neck is supple. Thyroid is not enlarged. Lungs: Clear to auscultation bilaterally. No rhonchi, wheezing, or crackles. No accessory muscle u se. Heart: Regular rate and rhythm. No extra sounds. Abdomen: Soft, nontender. Bowel sounds positive. No organomegaly. No masses or hernia. No rigidi ty or rebound. Extremities: No edema, clubbing, or cyanosis. Intact pulses. Skin: No rash. Neurologic: Alert, awake, oriented x3. No acute focal deficits appreciated. Investigations: His troponin is trending down at 21,000 range. Assessment And Recommendations: 1.Elevated troponin suggestive of non-ST elevation myocardial infarction; however, the patient does not have chest pain. I did a coronary angiogram on him yesterday and he has the graft to the RCA, can s significant disease, however, heavily calcified and could not deploy a stent. Recommendations will be to obtain a Lexiscan nuclear stress test tomorrow and based on the results, I will decide if ther e is significant ischemia, then we will need to transfer the patient to higher level of care facility for the complex intervention on that SVG graft. 2.End-stage renal disease, on hemodialysis. 3.Dyslipidemia. Continue statin. SR/MODL Voice ID: [id number] Report ID: [id number]
[2022-09-28] MEDS: ACETAMINOPHEN 325 MG TABLET PO PRN (20:35)
[2022-09-28] MEDS: ATORVASTATIN 40 MG TAB PO SCH (20:35)
[2022-09-28] MEDS: MELATONIN 5 MG TABLET PO PRN (23:19)
[2022-09-29] MEDS: ACETAMINOPHEN 325 MG TABLET PO PRN ×2 (02:58→18:31)
[2022-09-29] MEDS ORDERED: REGADENOSON 0.4 MG/5 ML SYR IV ONE (07:13)
--- NOTE | 2022-09-29 08:23 | RAD REPORT ---
EXAM DESCRIPTION: NM - Rest Stress Cardiac Imaging - 09/29/2022 7:51 am CLINICAL HISTORY: Chest pain. COMPARISON: None. TECHNIQUE: The patient was administered 10. mCi of Tc 99m Sestamibi prior to resting SPECT imaging o f the heart. The patient was then administered 30. MCi of Tc 99m Sestamibi following exercise or pha rmacologic stress. Multiplanar SPECT images were reviewed. FINDINGS: Stress images demonstrate moderate diminished radiotracer uptake involving the anterior le ft ventricular myocardium. This demonstrates partial with reaccumulation of radiotracer on rest image s. A moderate apical septal area of diminished radiotracer activity is present on both rest and stress s equences. The left ventricular ejection fraction equals 35% IMPRESSION: Moderate partially reversible perfusion defect anterior left ventricle myocardium may in dicate an infarct with harmony-infarct ischemia Fixed defect involving the apical septal left ventricle myocardium probably infarct
[2022-09-29] MEDS: HYDRALAZINE HCL 25 MG TABLET PO SCH ×3 (09:16→21:29)
[2022-09-29] MEDS: GABAPENTIN 300 MG CAP PO SCH (09:16)
[2022-09-29] MEDS: ASPIRIN EC 81 MG TAB PO SCH (09:16)
[2022-09-29] MEDS: lisinopriL 20 MG TAB PO SCH (09:16)
[2022-09-29] MEDS: SEVELAMER CARBONATE 800 MG TABLET PO SCH ×3 (09:16→16:43)
[2022-09-29] MEDS: carvediloL 25 MG TAB PO SCH ×2 (09:17→21:28)
[2022-09-29] MEDS: FERROUS SULFATE 325 MG TAB PO SCH (09:17)
--- NOTE | 2022-09-29 15:47 | P.PN ---
Subjective Date of Service: 09/29/22 Chief Complaint: NSTEMI Subjective: No new changes Physical Examination - Vital Signs Temperature: 97.4 F Blood Pressure: 90/48 Pulse: 64 Respirations: 24 Pulse Ox (%): 100 - Physical Exam General: Other (chronically ill-appearing) HEENT: Atraumatic, Normocephalic Neck: Supple Respiratory: Other (symmetric chest expansion) Cardiovascular: No rubs, No murmurs Gastrointestinal: Soft and benign, No guarding Musculoskeletal: No clubbing Neurological: Normal tone Urinary: Other (no bladder distention) External genitalia: Deferred Rectal: Deferred Assessment And Plan - Plan 1. End-stage renal disease. Next HD tomorrow. HD TTS sked while in house. 2. History of coronary artery disease, previous CABG. S/p C on 09/27. Per Cardiology. 3. Anemia of chronic disease. Monitor CBC. 4. Renal osteodystrophy. Monitor phosphorus level. Continue binders.
[2022-09-29] MEDS: ATORVASTATIN 40 MG TAB PO SCH (21:29)
[2022-09-29] MEDS: MELATONIN 5 MG TABLET PO PRN (21:29)
[2022-09-30] MEDS ORDERED: HEPARIN 10,000 UNIT/10 ML VIAL IV ONE (02:53)
[2022-09-30] MEDS ORDERED: HEPARIN 5000 UNIT/ML 1 ML VIAL ONE (03:07)
[2022-09-30 03:09] LABS: Absolute Lymphocytes (CBC) 0.9 K/uL (0.7-4.9); Hematocrit 31.2 % (39.6-49.0); Lymphocytes % 6.9 % (15.3-44.8); MCV 92.8 fL (80-100); MPV 9.3 fL (7.6-11.3); Platelets 192 thou/uL (152-406); RBC Red Blood Cell Count 3.36 M/uL (4.33-5.43)
[2022-09-30 03:14] LABS: Protime INR 1.15
[2022-09-30] MEDS ORDERED: NA CHLORIDE 0.9% 250 ML IV PRN (03:15)
[2022-09-30] MEDS ORDERED: NA CHLORIDE 0.9% 250 ML IV ONE (03:43)
[2022-09-30] MEDS ORDERED: HEPARIN/D5W 25,000 UNIT/500 ML BAG IV SCH (04:00)
[2022-09-30] MEDS ORDERED: HEPARIN/D5W 25,000 UNIT/500 ML BAG IV ONE (04:08)
[2022-09-30] MEDS ORDERED: NA CHLORIDE 0.9% 1,000 ML ONE (04:08)
[2022-09-30] MEDS ORDERED: DOBUTAMINE 250 MG/250 ML BAG IV ONE (04:08)
[2022-09-30] MEDS: HEPARIN 5000 UNIT/ML 1 ML VIAL IV SCH ×2 (04:10→04:13)
[2022-09-30] MEDS: HEPARIN/D5W 25,000 UNIT/500 ML BAG IV PRN (04:15)
[2022-09-30] MEDS ORDERED: NOREPINEPHRINE BITARTRATE/D5W 4 MG/250 ML BAG IV ONE (04:21)
[2022-09-30] MEDS ORDERED: ALBUMIN HUMAN 25% 100 ML IV ONE (04:25)
[2022-09-30] MEDS ORDERED: MIDODRINE HCL 5 MG TABLET PO ONE (04:26)
[2022-09-30] MEDS: NOREPINEPHRINE BITARTRATE/D5W 4 MG/250 ML BAG IV SCH ×5 (04:30→21:59)
[2022-09-30] MEDS ORDERED: NOREPINEPHRINE 4 MG in D5W 250 ML IV SCH ×2 (05:00→05:39)
[2022-09-30] MEDS ORDERED: NA CHLORIDE 0.9% 500 ML ONE (05:23)
[2022-09-30] MEDS: SEVELAMER CARBONATE 800 MG TABLET PO SCH ×3 (07:19→17:05)
[2022-09-30] MEDS: HYDRALAZINE HCL 25 MG TABLET PO SCH ×3 (07:20→21:00)
[2022-09-30] MEDS: lisinopriL 20 MG TAB PO SCH (07:20)
[2022-09-30] MEDS: carvediloL 25 MG TAB PO SCH ×2 (07:20→21:00)
--- NOTE | 2022-09-30 08:17 | P.PN ---
Date of Service: 09/28/22 Subjective: Patient is clinically doing well. Cardiac catheterization revealed significant plaquing on the RCA graft. Unable to stent at this hospital. Stress test in the morning. ROS: 10 point ROS as noted above, otherwise negative Physical Exam: Gen: Alert,oriented, NAD; oriented to person place and time CV: regular rate & rhythm, trace-1+ BLE edema Pulm: clear bilaterally Abd: soft, non-tender, non-distended Extremities: No clubbing no cyanosis or edema Neuro: no focal deficits Problem List: 1. NSTEMI 2. Coronary Artery Disease s/p CABG 3. Hypertension 4. ESRD on MWF HD 5. DM2 with Neuropathy PLAN 1. Cath revealed significant atherosclerotic lesion of the RCA graft. Stress test in AM to evaluate the degree of ischemia 2. Continue with antiplatelet therapy and statin therapy 3. Continue with HD 4. Appreciate nephrology consultation and continue with hemodialysis 5. Continue with strict blood sugar control 6. Monitor hemodynamics 7. GI and DVT prophylaxis
--- NOTE | 2022-09-30 08:19 | P.PN ---
Date of Service: 09/29/22 Subjective: Stress test reveals some degree of ischemia and cardiology recommending transfer to [facility] for coronary artery intervention. ROS: 10 point ROS as noted above, otherwise negative Physical Exam: Gen: Alert,oriented, NAD; oriented to person place and time CV: regular rate & rhythm, trace-1+ BLE edema Pulm: clear bilaterally Abd: soft, non-tender, non-distended Extremities: No clubbing no cyanosis or edema Neuro: no focal deficits Problem List: 1. NSTEMI 2. Coronary Artery Disease s/p CABG 3. Hypertension 4. ESRD on MWF HD 5. DM2 with Neuropathy PLAN 1. Stress test revealed a significant degree of reversible ischemia 2. Continue with antiplatelet therapy and statin therapy 3. Continue with HD 4. Appreciate nephrology consultation and continue with hemodialysis 5. Continue with strict blood sugar control 6. Monitor hemodynamics 7. GI and DVT prophylaxis
--- NOTE | 2022-09-30 08:21 | P.PN ---
Date of Service: 09/30/22 Subjective: Patient had an episode of bradycardia overnight. Patient's blood pressure dropped. I was notified by nurse practitioner and we consulted cardiology. Patient's troponins were elevated. Patient was moved to ICU and central line was placed. Patient was started on vasopressors. Spoke with family. We will notify nephrology as well. Patient was given gentle hydration. We will back off on BP medications. Possible sick sinus syndrome with hypotension. Echocardiogram will be repeated. Transferred to patient's dross puller Dr. Berkowitz at [facility] per family's request. If unable to accept we will continue trying to go to [facility] under Dr. Patterson. ROS: 10 point ROS as noted above, otherwise negative Physical Exam: Gen: Alert,oriented, NAD; oriented to person place and time CV: regular rate & rhythm, trace-1+ BLE edema Pulm: clear bilaterally Abd: soft, non-tender, non-distended Extremities: No clubbing no cyanosis or edema Neuro: no focal deficits Problem List: 1. NSTEMI 2. Coronary Artery Disease s/p CABG 3. Hypertension 4. ESRD on MWF HD 5. DM2 with Neuropathy 6. Bradycardia with hypotension PLAN 1. Stress test revealed a significant degree of reversible ischemia; patient had a episode of bradycardia and hypotension. Possible sick sinus syndrome. Repeat echocardiogram. 2. Continue with antiplatelet therapy and statin therapy 3. Continue with HD 4. Appreciate nephrology consultation and continue with hemodialysis 5. Continue with strict blood sugar control 6. Monitor hemodynamics 7. GI and DVT prophylaxis - Advance Directives Does patient have a Living Will: Yes Does patient have a Durable POA for Healthcare: Yes - Code Status/Comfort Care Code Status Assessed: Yes Code Status: Full Code Critical Care: Yes Time Spent Managing PTS Care (In Minutes): 55
[2022-09-30] MEDS: MIDODRINE HCL 5 MG TABLET PO SCH ×3 (08:36→22:00)
[2022-09-30] MEDS: FERROUS SULFATE 325 MG TAB PO SCH (08:36)
[2022-09-30] MEDS: GABAPENTIN 300 MG CAP PO SCH (08:36)
[2022-09-30] MEDS: ASPIRIN EC 81 MG TAB PO SCH (08:36)
--- NOTE | 2022-09-30 08:57 | TREADPHA ---
DX: CHEST PAIN Date of Study: 09/29/2022 Ht: 6' 1 " Wt: 224 lb 3.2 oz Consulting Physician: RHIANNON MEDICATIONS: TYLENOL, ASPIRIN, LIPITOR, COREG, FEOSOL, NEURONTIN, HEPARIN, APRESOLINE, PRINIVIL, MELATONIN, ZOFRAN, RENVELA HISTORY: 61 YEAR OLD MALE WITH COMPLAINTS OF CHEST PAIN. HISTORY OF CORONARY ARTERY DISEASE, CORONARY ARTERY BYPASS GRAFT. PATIENT DENIES ALLERGIES AT THIS TIME. PHYSICIAL EXAMINATION: RESTING B.P.: 123/52 RESTING H.R.: 72 RESTING EKG: SINUS RHYTHM WITH INFERIOR LATERAL ST DEPRESSION PROTOCOL: PHARMACOLOGIC EXERCISE TIME: 3:30 B.P. AT PEAK STRESS: 126/67 IMPRESSION: LEXISCAN INJECTED. CARDIOLITE INJECTED. SEE NUCLEAR MEDICINE REPORT. NO SUPRAVENTRICULAR TACHYCARDIA, VENTRICULAR TACHYCARDIA, PREMATURE ATRIAL COMPLEXES, PREMATURE VENTRICULAR COMPLEXES NOTED. PATIENT DENIES CHEST PAIN. PATIENT STATES HE JUST FEELS "SLEEPY". NON-DIAGNOSITC ELECTROCARDIOGRAM PORTION, DUE TO ABNORMAL BASELINE.
[2022-09-30 11:25] LABS: Albumin 2.8 g/dL (3.4-5.0); Bilirubin Total 0.4 mg/dL (0.2-1.0); Magnesium 2.4 mg/dL (1.6-2.4); Phosphorus 7.2 mg/dL (2.5-4.9); Potassium 5.5 mEq/L (3.5-5.1); Protein, Total 7.6 g/dL (6.4-8.2)
[2022-09-30] MEDS ORDERED: SODIUM ZIRCONIUM CYCLOSILICATE 10 GM/PKT PO ONE (13:00)
[2022-09-30] MEDS ORDERED: SODIUM BICARB 50 MEQ/50ML VIAL IV ONE (13:00)
[2022-09-30] MEDS: D5W 1,000 ML with NA BICARB 8.4% 150 MEQ IV SCH ×2 (13:13)
[2022-09-30] MEDS: ALBUMIN HUMAN 25% 100 ML IV SCH ×2 (13:13→17:02)
[2022-09-30] MEDS ORDERED: PIPER TAZO 2.25 GM in NA CHLORIDE 0.9% 50 ML IV SCH (17:00)
[2022-09-30] MEDS: PIPER TAZO 3.375 GM in NA CHLORIDE 0.9% 100 ML IV SCH (17:05)
[2022-09-30 17:40] LABS: Potassium 4.9 mEq/L (3.5-5.1)
[2022-09-30] MEDS ORDERED: THIAMINE 200 MG/2 ML INJ IVP ONE (17:56)
--- NOTE | 2022-09-30 20:57 | PN ---
Date of Progress Note: 09/30/2022 Subjective: Seen by bedside. Doing clinically well. No chest pain. He was sent to the ICU because of bradycardia, but he was having a bowel movement and likely had a vasovagal event. There is no ch est pain, shortness of breath, orthopnea, or cough. All other systems reviewed, they were negative. Objective: Vital Signs: Reviewed. Head and Neck: Pupils are equal, reactive to light. Intact eye movements. No JVD. No cervical lym phadenopathy. Neck is supple. Thyroid is not enlarged. Lungs: Clear to auscultation bilaterally. No rhonchi, wheezing, or crackles. No accessory muscle u se. Heart: Regular rate and rhythm. No extra sounds. Abdomen: Soft, nontender. Bowel sounds positive. No organomegaly. No masses or hernia. No rigidi ty or rebound. Extremities: Edema bilaterally. No clubbing or cyanosis. Intact pulses. Skin: No rash. No nodules. Neurologic: Alert, awake, and oriented x3. No acute focal deficits appreciated. Investigations: Labs were reviewed. Assessment And Recommendations: 1.Hypotension, is probably related to the vasovagal event or infection as his white count is going u p now. I recommend pancultures, and from cardiac standpoint, we will monitor. 2.Hypertension. Blood pressure is running low. To discontinue all antihypertensive agents and the sepsis workup is indicated and patient is on wide-spectrum antibiotics. 3.Elevated troponin. Normal ejection fraction. So this is likely a [id number] myocardial inf arction. However, the culprit is probably the SVG graft to the RCA, which is difficult to intervene on. I will plan to do intervention once his clinical condition and the infection status is controlle d which I will probably plan for this as an outpatient. 4.Dyslipidemia. Continue statin. SR/MODL Voice ID: [id number] Report ID: [id number]
[2022-09-30] MEDS ORDERED: PIPER TAZO 3.375 GM in NA CHLORIDE 0.9% 100 ML IV SCH (21:00)
[2022-09-30] MEDS: ATORVASTATIN 40 MG TAB PO SCH (22:00)
--- NOTE | 2022-09-30 22:54 | PN ---
Date of Progress Note: 09/29/2022 Subjective: Seen by bedside. There is no chest pain. Review of Systems: No chest pain, shortness of breath, orthopnea, cough. No nausea, vomiting, diarrhea. All other syst ems reviewed were negative. Physical Examination: Vital Signs: Reviewed. Head and Neck: Pupils are equal, reactive to light. Intact eye movements. No JVD. No cervical lym phadenopathy. Neck is supple. Thyroid is not enlarged. Lungs: Clear to auscultation bilaterally. No rhonchi, wheezing, or crackles. No accessory muscle u se. Heart: Regular rate and rhythm. No extra sounds. Abdomen: Soft, nontender. Bowel sounds positive. No organomegaly. No masses or hernia. No rigidi ty or rebound. Extremities: No clubbing, cyanosis. Intact pulses. Skin: No rash. Neurologic: Alert, awake, oriented x3. No acute focal deficits appreciated. Investigations: Troponin is down to 6854 and BUN is 67, creatinine is 10 and hemoglobin is 9.5. Assessment And Recommendations: 1.Non-ST elevation myocardial infarction. Ejection fraction remains normal. At this point, this pa tient needs high-risk PCI of the SV graft to RCA, which will be arranged once his condition is stable and this can be done as an outpatient unless the patient is having chest pain as he was asymptomatic throughout. 2.End-stage renal disease, on hemodialysis. Continue current management. 3.Hypertension. Blood pressure is controlled. Continue current management. SR/MODL Voice ID: [id number] Report ID: [id number]
[2022-10-01] MEDS: PIPER TAZO 3.375 GM in NA CHLORIDE 0.9% 100 ML IV SCH ×3 (00:47→18:17)
[2022-10-01] MEDS: HEPARIN/D5W 25,000 UNIT/500 ML BAG IV PRN ×2 (00:47→18:23)
--- NOTE | 2022-10-01 01:48 | PN ---
Date of Progress Note: 09/30/2022 Chief Complaint: End-stage renal disease. Objective: The patient was transferred to ICU this morning after he developed bradycardia overnight and hypotension. Dr. Cruz transferring patient to ICU. The patient was started on vasopressors and family requested transfer to [facility]. The patient has non-ST elevation myocardial infarct ion. The patient was on pressors and he received IV albumin for blood pressure support. Blood work was obtained and showed potassium of 5.1. The patient was started on bicarbonate drip for mild metab olic acidosis and potassium level has improved. Due to hypotension, dialysis was on hold. The patie nt is undergoing evaluation for transfer to [facility] for CRRT. Review of Systems: Patient denies chest pain. Denies headache. He has severe vision impairment. Objective: Lungs: Clear to auscultation bilaterally. Heart: S1-S2. Abdomen: Soft. Extremities: No edema. Impression And Plan: End-stage renal disease. The patient will continue dialysis, although he will require CRRT if blood pressure does not improve. Currently, patient is on pressors. He has non-ST e levation myocardial infarction. He developed bradycardia and hypotension and he will be transferred to [facility] for higher level of care and CRRT treatment. Family requested to transfer patient to his radiation oncology manager in [facility]. Patient has non-ST elevation myocardial infarction, previous CABG. Stress test revealed significant degree of reversible ischemia. The patient had episode of bradycardia and hypotension. The echo was ordered again to re-evaluate by primary team and Cardiology. Anemia and chronic kidney disease. Monitor hemoglobin. Renal osteodystrophy. Continue to monitor phosphorus and calcium level. EB/MODL Voice ID: [id number] Report ID: [id number]
[2022-10-01] MEDS: NOREPINEPHRINE BITARTRATE/D5W 4 MG/250 ML BAG IV SCH ×2 (02:11→07:14)
[2022-10-01 05:04] LABS: Absolute Lymphocytes (CBC) 1.4 K/uL (0.7-4.9); Hematocrit 27.2 % (39.6-49.0); Lymphocytes % 9.5 % (15.3-44.8); MCV 91.5 fL (80-100); MPV 8.7 fL (7.6-11.3); Platelets 280 thou/uL (152-406); RBC Red Blood Cell Count 2.97 M/uL (4.33-5.43)
[2022-10-01 05:31] LABS: Albumin 3.1 g/dL (3.4-5.0); Bilirubin Total 0.4 mg/dL (0.2-1.0); Magnesium 2.2 mg/dL (1.6-2.4); Potassium 4.5 mEq/L (3.5-5.1)
--- NOTE | 2022-10-01 06:36 | P.PN ---
Date of Service: 10/01/22 Subjective: ROS: 10 point ROS as noted above, otherwise negative Physical Exam: Gen: Alert,oriented, NAD; oriented to person place and time CV: regular rate & rhythm, trace-1+ BLE edema Pulm: clear bilaterally Abd: soft, non-tender, non-distended Extremities: No clubbing no cyanosis or edema Neuro: no focal deficits Problem List: 1. NSTEMI 2. Coronary Artery Disease s/p CABG 3. Hypertension 4. ESRD on MWF HD 5. DM2 with Neuropathy 6. Bradycardia with hypotension PLAN 1. Stress test revealed a significant degree of reversible ischemia; patient had a episode of bradycardia and hypotension. Possible sick sinus syndrome. Repeat echocardiogram. 2. Continue with antiplatelet therapy and statin therapy 3. Continue with HD 4. Appreciate nephrology consultation and continue with hemodialysis 5. Continue with strict blood sugar control 6. Monitor hemodynamics 7. GI and DVT prophylaxis - Advance Directives Does patient have a Living Will: Yes Does patient have a Durable POA for Healthcare: Yes - Code Status/Comfort Care Code Status Assessed: Yes Code Status: Full Code Critical Care: Yes Time Spent Managing PTS Care (In Minutes): 55
--- NOTE | 2022-10-01 06:50 | ECHO ---
HEIGHT: 6 ft 1 in WEIGHT: 224 lb 3.2 oz DATE OF STUDY: 09/30/[address]: Bandar Cruz MD 2-DIMENSIONAL: YES M.MODE: YES DOPPLER: YES COLOR FLOW: YES TDS: PORTABLE: YES DEFINITY: BUBBLE STUDY: DIAGNOSIS: HYPOTENSION CARDIAC HISTORY: CATHERIZATION: YES SURGERY: YES PROSTHETIC VALVE: NO PACEMAKER: NO MEASUREMENTS (cm) DIASTOLIC (NORMALS) SYSTOLIC (NORMALS) IVSd 1.3 (0.6-1.2) LA Diam 4.3 (1.9-4.0) LVEF 54% LVIDd 4.9 (3.5-5.7) LVIDs 3.5 (2.0-3.5) %FS 28% LVPWd 1.3 (0.6-1.2) Ao Diam 2.9 (2.0-3.7) 2 DIMENSIONAL ASSESSMENT: RIGHT ATRIUM: NORMAL LEFT ATRIUM: ENLARGED RIGHT VENTRICLE: NORMAL LEFT VENTRICLE: LEFT VENTRICULAR HYPERTENSION TRICUSPID VALVE: MILD TRICUSPID REGURGITATION MITRAL VALVE: MODERATE MITRAL REGURGITATION PULMONIC VALVE: NORMAL AORTIC VALVE: CALCIFIED WITH MILD AORTIC INSUFFICIENCY PERICARDIAL EFFUSION: TRACE AORTIC ROOT: NORMAL LEFT VENTRICULAR WALL MOTION: NORMAL DOPPLER/COLOR FLOW: SEE BELOW COMMENTS: 1. NORMAL LEFT VENTRICULAR EJECTION FRACTION 50-55% 2. LEFT ATRIAL ENLARGEMENT 3. MODERATE MITRAL REGURGITATION 4. DIASTOLIC DYSFUNCTION 5. MODERATE CONCENTRIC LEFT VENTRICULAR HYPERTROPHY TECHNOLOGIST: CAMILLE SARAH
[2022-10-01] MEDS: SEVELAMER CARBONATE 800 MG TABLET PO SCH ×3 (08:00→18:17)
[2022-10-01] MEDS: lisinopriL 20 MG TAB PO SCH (09:00)
[2022-10-01] MEDS: carvediloL 25 MG TAB PO SCH ×2 (09:00→20:45)
[2022-10-01] MEDS: HYDRALAZINE HCL 25 MG TABLET PO SCH ×3 (09:00→20:45)
[2022-10-01] MEDS: FERROUS SULFATE 325 MG TAB PO SCH ×2 (09:00→09:14)
[2022-10-01] MEDS: ASPIRIN EC 81 MG TAB PO SCH (09:13)
[2022-10-01] MEDS: GABAPENTIN 300 MG CAP PO SCH (09:13)
[2022-10-01] MEDS: MIDODRINE HCL 5 MG TABLET PO SCH ×3 (09:14→20:45)
[2022-10-01] MEDS ORDERED: METHYLPREDNISOLONE 125 MG INJ IV ONE (09:42)
[2022-10-01] MEDS: D5W 1,000 ML with NA BICARB 8.4% 150 MEQ IV SCH ×2 (12:00)
--- NOTE | 2022-10-01 15:05 | P.PN ---
Subjective Date of Service: 10/01/22 Chief Complaint: NSTEMI Subjective: Other (Received HD today.) Physical Examination - Vital Signs Temperature: 98.5 F Blood Pressure: 126/66 Pulse: 66 Respirations: 13 Pulse Ox (%): 100 - Physical Exam General: Other (appears acutely ill) HEENT: Atraumatic, Normocephalic Neck: Supple Respiratory: Other (Symmetric chest expansion) Cardiovascular: No rubs, No murmurs Gastrointestinal: Soft and benign, No guarding Integumentary: No warmth Neurological: Normal tone Urinary: Other (No bladder distention) External genitalia: Deferred Rectal: Deferred Assessment And Plan - Plan 1. End-stage renal disease. HD received today. HD MWF sked. 2. Shock likely 2/2 distributive/septic + cardiogenic. History of CAD s/p CABG. Will likely need podiatry intervention for R foot infection. MRI pending. Had bradycardia, hypotension today. Failed PCI to RCA bypass graft on 09/28. PCI reattempt per Cardiology. CXR +bilat opacities. On IV pressor, wean off as able. 3. Anemia of chronic disease. Monitor CBC. 4. Renal osteodystrophy. Monitor phosphorus level. Continue binders. Time spent > 35 mins
--- NOTE | 2022-10-01 15:15 | PN ---
Date of Progress Note: 10/01/2022 Subjective: Seen by bedside. No new complaints. No chest pain. Review of Systems: No chest pain, shortness of breath, orthopnea, cough. No nausea, vomiting, diarrhea. All other syst ems reviewed are negative. Physical Examination: Vital Signs: Reviewed. Head and Neck: Pupils are equal, reactive to light. Intact eye movements. No JVD. No cervical lym phadenopathy. Neck: Supple. Thyroid is not enlarged. Lungs: Clear to auscultation bilaterally. No rhonchi, wheezing, or crackles. No accessory muscle u se. Heart: Regular rate and rhythm. No extra sounds. Abdomen: Soft, nontender. Bowel sounds positive. No organomegaly. No masses or hernia. No rigidi ty or rebound. Extremities: Edema bilaterally. No clubbing, cyanosis. Intact pulses. Skin: No rash. Neurologic: Alert, awake. No acute focal deficits appreciated. Investigations: BUN 82, creatinine is 10 and hemoglobin is 9.1. Assessment/recommendations: 1.Non-ST elevation myocardial infarction. I will plan to transfer the patient to [place] and to do a PCI of the SVG graft to the RCA on Tuesday. Continue heparin and baby aspirin as well as beta b locker. 2.Hypertension. Blood pressure is controlled. Continue current management. 3.Hypotension, probably due to sepsis and he is being treated with IV antibiotics. 4.End-stage renal disease, on hemodialysis. SR/MODL Voice ID: [id number] Report ID: [id number]
--- NOTE | 2022-10-01 16:19 | RAD REPORT ---
EXAM DESCRIPTION: Alex Single View10/01/2022 4:04 pm CLINICAL HISTORY: Chest pain COMPARISON: September 25, 2022 FINDINGS: [id number] bilateral pulmonary opacities have developed. Heart remains enlarged. Pos tsurgical changes involve the chest. No significant pleural effusion noted IMPRESSION: [id number] bilateral pulmonary opacities probably pulmonary edema. Pneumonia could also have this appearance
[2022-10-01] MEDS: PHENOL 1.4% ORAL SPRAY 180ML MM PRN (18:17)
[2022-10-01 18:54] LABS: Blood O2 Saturation 43.9 % (92-98.5)
[2022-10-01 18:55] LABS: Blood Gas Oxyhemoglobin 42.8 % (94-97)
[2022-10-01 18:56] LABS: Arterial Blood Carboxyhemoglob 1.1 % (0-1.5)
[2022-10-01] MEDS: ATORVASTATIN 40 MG TAB PO SCH (20:45)
[2022-10-02] MEDS: PIPER TAZO 3.375 GM in NA CHLORIDE 0.9% 100 ML IV SCH ×3 (00:56→16:49)
[2022-10-02 05:37] LABS: Absolute Lymphocytes (CBC) 0.5 K/uL (0.7-4.9); Lymphocytes % 4.3 % (15.3-44.8); MCV 93.6 fL (80-100); MPV 9.1 fL (7.6-11.3); Platelets 210 thou/uL (152-406); RBC Red Blood Cell Count 2.99 M/uL (4.33-5.43)
[2022-10-02 06:17] LABS: BUN Blood Urea Nitrogen 61 mg/dL (7-18); Bicarbonate 25 mEq/L (21-32); Glomerular Filtration Rate 6 ml/min (=/>90); Glucose Level 363 mg/dL (74-106); Magnesium 2.3 mg/dL (1.6-2.4); Phosphorus 7.4 mg/dL (2.5-4.9); Potassium 5.8 mEq/L (3.5-5.1); Sodium Level 132 mEq/L (136-145)
[2022-10-02 06:21] LABS: NT PRO-BNP > 175000 pg/mL (<125); Troponin High Sensitivity 3450.1 pg/mL (<58.9)
[2022-10-02] MEDS: SEVELAMER CARBONATE 800 MG TABLET PO SCH ×3 (08:00→16:49)
[2022-10-02] MEDS: GABAPENTIN 300 MG CAP PO SCH (08:01)
[2022-10-02] MEDS: MIDODRINE HCL 5 MG TABLET PO SCH ×2 (08:01→20:30)
[2022-10-02] MEDS: FERROUS SULFATE 325 MG TAB PO SCH (08:01)
[2022-10-02] MEDS: ASPIRIN EC 81 MG TAB PO SCH (08:01)
[2022-10-02] MEDS: lisinopriL 20 MG TAB PO SCH (08:02)
[2022-10-02] MEDS: HYDRALAZINE HCL 25 MG TABLET PO SCH ×3 (08:02→20:31)
[2022-10-02] MEDS: carvediloL 25 MG TAB PO SCH ×2 (08:02→20:31)
[2022-10-02] MEDS: PHENOL 1.4% ORAL SPRAY 180ML MM PRN ×2 (08:36→15:48)
[2022-10-02 09:12] LABS: Anisocytosis 1+; Blood Morphology Comment NOTED (NOT SEEN); Platelet Estimate ADEQ; Platelets, Giant FEW PRESENT; White Blood Cell Scan OK (OK)
[2022-10-02] MEDS ORDERED: FUROSEMIDE 40 MG/4 ML VIAL IV ONE (10:45)
[2022-10-02] MEDS ORDERED: SODIUM ZIRCONIUM CYCLOSILICATE 10 GM/PKT PO ONE ×2 (10:45→18:00)
[2022-10-02] MEDS: HEPARIN/D5W 25,000 UNIT/500 ML BAG IV PRN (14:12)
--- NOTE | 2022-10-02 14:43 | P.PN ---
Subjective Date of Service: 10/02/22 Chief Complaint: NSTEMI Pt with ESRd , DM , admitted with low BP after HD, treated for NSTEMI , Stress test with abnormality today denied nausea, vomiting or dirrjhea had HD yesterday K today 5.8, S/p Lokelma , will give another dose pendin transfer next HD tomorrow or Tuesday as per potassium level Physical exam General: Awake, in mild distress HEENT: Atraumatic, Normocephalic Neck: Supple, no elevated JVD Respiratory: CTAB Cardiovascular: No rubs, No murmurs Gastrointestinal: Soft and benign, Non-distended Musculoskeletal: No clubbing Ext: no edema A/p # End-stage renal disease. HD received today. HD MWF sked. renal dose meds #Hyperkalemia likely due to heparin drip Low k diet cont HD will Give lOkelma # Shock likely cardiogenic. History of CAD s/p CABG. #NSTEM Cont Heparin drip Plan to transfer for higher level of care History of CAD s/p CABG. . # Anemia of chronic disease. Monitor CBC. #Renal osteodystrophy. Monitor phosphorus level. Continue binders. Physical Examination - Vital Signs Temperature: 96.9 F Blood Pressure: 115/75 Pulse: 65 Respirations: 23 Pulse Ox (%): 95
[2022-10-02] MEDS: ATORVASTATIN 40 MG TAB PO SCH (20:30)
[2022-10-02] MEDS: MELATONIN 5 MG TABLET PO PRN (20:30)
[2022-10-03] MEDS: PIPER TAZO 3.375 GM in NA CHLORIDE 0.9% 100 ML IV SCH ×2 (01:44→08:25)
[2022-10-03 04:42] LABS: Absolute Lymphocytes (CBC) 0.9 K/uL (0.7-4.9); Hematocrit 25.1 % (39.6-49.0); Lymphocytes % 7.9 % (15.3-44.8); MCV 92.5 fL (80-100); Platelets 205 thou/uL (152-406); RBC Red Blood Cell Count 2.71 M/uL (4.33-5.43)
[2022-10-03 04:59] LABS: Magnesium 2.4 mg/dL (1.6-2.4); Potassium 4.7 mEq/L (3.5-5.1)
[2022-10-03] MEDS: ASPIRIN EC 81 MG TAB PO SCH (08:25)
[2022-10-03] MEDS: FERROUS SULFATE 325 MG TAB PO SCH (08:25)
[2022-10-03] MEDS: MIDODRINE HCL 5 MG TABLET PO SCH ×2 (08:25→20:05)
[2022-10-03] MEDS: GABAPENTIN 300 MG CAP PO SCH (08:25)
[2022-10-03] MEDS: SEVELAMER CARBONATE 800 MG TABLET PO SCH ×3 (08:25→16:56)
[2022-10-03] MEDS: HYDRALAZINE HCL 25 MG TABLET PO SCH ×3 (08:25→20:07)
[2022-10-03] MEDS: lisinopriL 20 MG TAB PO SCH (08:26)
[2022-10-03] MEDS: carvediloL 25 MG TAB PO SCH ×3 (08:26→20:05)
[2022-10-03] MEDS: HEPARIN/D5W 25,000 UNIT/500 ML BAG IV PRN (09:58)
--- NOTE | 2022-10-03 13:48 | P.PN ---
Subjective Date of Service: 10/03/22 Chief Complaint: NSTEMI Pt with ESRd , DM , admitted with low BP after HD, treated for NSTEMI , Stress test with abnormality today denied nausea, vomiting or diarrhea HD tomorrow pending transfer to medical center for higher level of care Physical exam General: Awake, in mild distress HEENT: Atraumatic, Normocephalic Neck: Supple, no elevated JVD Respiratory: CTAB Cardiovascular: No rubs, No murmurs Gastrointestinal: Soft and benign, Non-distended Musculoskeletal: No clubbing Ext: no edema A/p # End-stage renal disease. HD received today. HD MWF sked. renal dose meds #Hyperkalemia likely due to heparin drip Low k diet cont HD will Give lOkelma # Shock likely cardiogenic. History of CAD s/p CABG. #NSTEM Cont Heparin drip Plan to transfer for higher level of care History of CAD s/p CABG. . # Anemia of chronic disease. Monitor CBC. #Renal osteodystrophy. Monitor phosphorus level. Continue binders. Physical Examination - Vital Signs Temperature: 96.9 F Blood Pressure: 121/75 Pulse: 59 Respirations: 14 Pulse Ox (%): 100
[2022-10-03] MEDS ORDERED: VANCOMYCIN 2 GM in NA CHLORIDE 0.9% 500 ML IVPB ONE (16:00)
[2022-10-03] MEDS: ATORVASTATIN 40 MG TAB PO SCH (20:05)
[2022-10-03 20:46] VITALS: O2SAT 98
[2022-10-03] MEDS ORDERED: PIPER TAZO 3.375 GM in NA CHLORIDE 0.9% 100 ML IV SCH (21:00)
[2022-10-04 00:35] VITALS: TEMP 97.9
[2022-10-04] MEDS: HEPARIN/D5W 25,000 UNIT/500 ML BAG IV PRN (01:52)
[2022-10-04 03:00] VITALS: BP 99/64
[2022-10-04] MEDS ORDERED: VANCOMYCIN 1 GM in NA CHLORIDE 0.9% 250 ML IVPB SCH (18:00)
--- NOTE | 2022-10-11 08:20 | P.DS ---
Discharge Date: 10/04/22 Primary Care Provider: Cheryl Disposition: TRANSFER TO [facility] Comment: N/A Discharge Condition: GOOD Reason for Admission: NSTEMI Consultations: Cardiology Brief History of Present Illness: Patient is a 61yo Hospital Course: Patient Vital Signs/Physical Exam: Temp Pulse Resp BP Pulse Ox 97.9 F 57 17 99/64 100 10/04/22 00:00 10/04/22 02:00 10/04/22 02:00 10/04/22 02:00 10/04/22 02:00 General: Alert, In no apparent distress, Oriented x3 Respiratory: Clear to auscultation bilaterally, Normal air movement Cardiovascular: Regular rate/rhythm, Normal S1 S2 Gastrointestinal: Normal bowel sounds, Soft and benign, Non-distended, W/out succussion splash Neurological: Cranial nerves 3-12 intact Laboratory Data at Discharge: WBC 11.10 thou/uL (4.3-10.9) H 10/03/22 04:20 Hgb 8.3 g/dL (13.6-17.9) L 10/03/22 04:20 Hct 25.1 % (39.6-49.0) L 10/03/22 04:20 Plt Count Cancelled 10/04/22 05:00 PT 12.7 SECONDS (9.5-12.5) H 09/30/22 02:59 INR 1.15 09/30/22 02:59 APTT Cancelled 10/04/22 05:00 Sodium 131 mEq/L (136-145) L 10/03/22 04:20 Potassium 4.7 mEq/L (3.5-5.1) 10/03/22 04:20 BUN 82 mg/dL (7-18) H 10/03/22 04:20 Creatinine 9.48 mg/dL (0.70-1.30) H 10/03/22 04:20 Glucose 207 mg/dL (74-106) H 10/03/22 04:20 Phosphorus 9.0 mg/dL (2.5-4.9) H* 10/03/22 04:20 Magnesium 2.4 mg/dL (1.6-2.4) 10/03/22 04:20 Total Bilirubin 0.4 mg/dL (0.2-1.0) 10/01/22 04:45 AST 54 U/L (15-37) H 10/01/22 04:45 ALT 44 U/L (16-61) 10/01/22 04:45 Alkaline Phosphatase 87 U/L (45-117) 10/01/22 04:45 Triglycerides 88 mg/dL (<150) 09/26/22 03:12 Cholesterol 99 mg/dL (<200) 09/26/22 03:12 HDL Cholesterol 44 mg/dL (40-60) 09/26/22 03:12 Cholesterol/HDL Ratio 2.25 09/26/22 03:12 Home Medications: Aspirin Chewable [Aspirin Chewable*] 81 mg PO DAILY 10/22/21 Atorvastatin Calcium [Lipitor] 40 mg PO DAILY 10/22/21 Carvedilol [Coreg] 25 mg PO BID 10/22/21 Ferrous Sulfate [Ferrous Sulfate*] 325 mg PO DAILY 10/22/21 Gabapentin 300 mg PO DAILY 10/22/21 Hydralazine [Apresoline*] 25 mg PO TID 10/22/21 Lisinopril [Zestril] 20 mg PO DAILY 10/22/21 Sucroferric Oxyhydroxide [Velphoro] 500 mg PO TIDWM 10/22/21 Sevelamer Carbonate [Renvela*] 800 mg PO TIDWM 09/25/22 Physician Discharge Instructions: OK TO DC IV AND DC HOME FOLLOW-UP WITH PRIMARY CARE PROVIDER IN 1-2 WEEKS FOLLOW-UP WITH CARDIOLOGY IN 1-2 WEEKS FOLLOW-UP WITH NEPHROLOGY as scheduled for hemodialysis RETURN TO THE ER IF symptoms worsen CALL DR. ALICEA AT [phone] IF ANY QUESTIONS REGARDING HOSPITAL STAY. PLEASE CALL THE FLOOR AT [phone] IF ANY MEDICATION OR NURSING QUESTIONS. Diet: Renal Activity: Fall precautions Followup: Unknown,U [Primary Care Provider] - Time spent managing pt's care (in minutes): 35
--- NOTE | 2022-10-14 04:24 | OP ---
Date of Procedure: 09/27/2022 Surgeon: RODRIGUEZ JURADO Procedures Performed: 1.Selective coronary angiogram with bypass graft study. 2.Left heart catheterization. 3.Failed attempt at percutaneous coronary intervention of the selective saphenous vein graft to righ t coronary artery. Access: Right femoral artery 6-Swedish closed with 6-Swedish Angio-Seal. Indication: Non ST elevation myocardial infarction. Complications: None. Bleeding: Less than 50 mL. Total Sedation Time: 1 hour. Description Of Procedure: After risks, benefits, and alternatives were explained, the patient agreed to the procedure and signed informed consent. The patient was brought into the cardiac catheterizat ion laboratory, prepped and draped in usual sterile fashion. Then, I accessed the right femoral deepa ry using micropuncture kit, placed 6-Swedish and ultrasound guidance, and placed 6-Swedish [place] she ath, took 6-Swedish JL4 catheter, aortic root, engaged left main, took standard views, and 6-Swedish JR 4 catheter into the aortic root, across aortic valve measures LVEDP, and pullback did not record any gradient and engaged RCA, SVG to RCA, and SVG to OM, and the HENNESSY to LAD and took standard views and then removed the catheter and then took a 6-Swedish JR4 guide into the aortic root, gave systemic hepa rin to assure ACT level above 250 and engaged the SVG to RCA and took a Run-Through wire through it a nd that tried to re-dilate and place a stent; however, I could not pass the stent due to heavily calc ified stenosis, so the procedure was reported and planned for doing this at [facility] as an outpatient with shockwave lithotripsy. I removed the wire and the guide and sheath. A 6-Swedish Ang io-Seal was used for closure with good hemostasis. Findings: 1.Left main; large and normal. 2.LAD; ostial 99% stenosed. 3.Left circumflex, ostial 99% stenosed. 4.RCA is BUMBOATER ostially. Graft Study: 1.Patent HENNESSY to LAD. 2.Patent SVG to OM. 3.SVG to RCA is patent with proximal 80% long heavily calcified stenosis. Plan: For a shockwave lithotripsy of the SVG graft and then followed by stent to be done at [facility] as an outpatient. SR/MODL Voice ID: [id number] Report ID: [id number]
== END 2022-10-04 02:45 | disposition short-term general hospital (02) | DRG 280 ==
LOC: ER 15:40 → ERHOLD 18:53 → 2ND 19:38 → 3RD-ICU 09-30 03:07
PROVIDERS: ADMIT Internal Medicine; ATTEND Hospitalist
PROC: 4A023N7 Measurement of Cardiac Sampling and Pressure, Left Heart, Percutaneous Approach (ICD-10-PCS; 2022-09-27)
PROC: B2111ZZ Fluoroscopy of Multiple Coronary Arteries using Low Osmolar Contrast (ICD-10-PCS; 2022-09-27)
PROC: 5A1D70Z Performance of Urinary Filtration, Intermittent, Less than 6 Hours Per Day (ICD-10-PCS; principal; 2022-09-28)
DX: I21.4 Non-ST elevation (NSTEMI) myocardial infarction (principal); N18.6 End stage renal disease; I12.0 Hypertensive chronic kidney disease with stage 5 chronic kidney disease or end stage renal disease; R57.9 Shock, unspecified; E11.22 Type 2 diabetes mellitus with diabetic chronic kidney disease; E11.42 Type 2 diabetes mellitus with diabetic polyneuropathy; E11.319 Type 2 diabetes mellitus with unspecified diabetic retinopathy without macular edema; D63.1 Anemia in chronic kidney disease; N25.0 Renal osteodystrophy; E87.5 Hyperkalemia; I25.10 Atherosclerotic heart disease of native coronary artery without angina pectoris; Z95.1 Presence of aortocoronary bypass graft; Z99.2 Dependence on renal dialysis; Z79.82 Long term (current) use of aspirin; Z79.899 Other long term (current) drug therapy; Z89.432 Acquired absence of left foot
CPT/HCPCS: 36415; 71045; 76937; 78452; 80048; 80053; 80061; 82805; 82947; 83036; 83605; 83735; 83880; 84100; 84132; 84145; 84439; 84443; 84484; 85025; 85347; 85610; 85730; 86706; 87040; 87070; 87077; 87186; 87205; 87340; 90935; 93005; 93017; 93306; 93459; 96365; 96366; 99285; A9500; C1760; C1887; C1893; G0269; J0461; J1250; J1644; J1940; J2001; J2250; J2405; J2543; J2785; J2930; J3010; J3411; J7030; J7040; J7050; P9047; Q9967